=== PATIENT | female | born 1955 | race Caucasian/White ===

== ENCOUNTER → 2016-08-17 | Outpatient (CLI) | payer MEDICARE, MEDICAID ==
[~2016-08-17] MED LIST: AC325T PO; ACEB200C PO; ALBU17AE23 IH; ALBU8.5H2 IH; AMIT25TA9 PO; ANTIBIOTIC; ATOR10TA66 PO; BENZ100C18 PO; CARB1TAB5 PO; CEFD300C3 PO; CEFP500T4 PO; CLON0.5T2 PO; CLON0.5T3 PO; CLON1TAB3 PO; CLOP75TA28 PO; COLE625T9 PO; CPR500T PO; EPIN0.1D10 INJ; EPIN0.3P3 IJ; FLT4413 IH; FLUT50DI IH; FLUT50DI2 INH; HORMONE; HYDR50CA PO; IPRA3AMP19 IH; ISOS30TA4 PO; ISOS30TA7 PO; IV ANTIBIOTIC; LORA-405 PO; MECL-106 PO; METH4TAB PO; METO50TA7 PO; MNTL10T PO; MOME13HF2 IH; MONT10TA24 PO; NITR-65 PO; NITR1PAT27 TD; NTR.4SL SL; ONDA4TAB8 SL; POTA10CA16 PO; POTA10TA36 PO; PRD10T PO; PRD20T; PRD20T PO; PRD50T PO; PRED10TA22 PO; PREMARIN; PREMARIN PO; RABE20TA PO; RABE20TA27 PO; RT-ALBUINH IH; SCOP1PAT TD; SUCR1ORA5 PO; THEO200T20 PO; THEO400T PO; THP200TCR PO; TOPI25TA10 PO
--- NOTE | 2016-08-17 16:33 | Diagnostic Imaging Report ---
PROCEDURE: US thyroid. TECHNIQUE: Multiple real-time grayscale images were obtained of the thyroid in various projections. INDICATION: Multinodular goiter. FINDINGS: Right lobe of the thyroid measures 4.9 x 1.3 x 1.1 cm. Left lobe measures 4.2 x 1.3 x 1.1 cm. There is a 9 mm nodule in the inferior pole of the right lobe of the thyroid. This is hypoechoic with some internal calcification. There is a 16 x 6 x 13 mm nodule in the isthmus, eccentric to the right, that has mixed echogenicity with some macrocalcification present also. The left lobe of the thyroid contains two nodules, inferiorly, measuring 7 and 5 mm in diameter. One is isoechoic and another hypoechoic. IMPRESSION: There are four thyroid nodules present in the thyroid. These are unchanged from the comparison exam dated 04/17/2016 and have benign features consistent with multinodular goiter. Dictated by: Dictated on workstation # [id number]
== END ==
LOC: RAD 14:47
PROVIDERS: ATTEND Otolaryngology Otolaryngology/Facial Plastic Surgery
DX: E04.2 Nontoxic multinodular goiter (principal)
CPT/HCPCS: 76536

== ENCOUNTER → 2016-09-12 | Outpatient (CLI) | payer MEDICARE, MEDICAID ==
[~2016-09-12] VITALS: Ht 162.6 cm; Wt 58.1 kg
[~2016-09-12] MED LIST changes: +CATHETER FLUSH 10 ML SYR IV PRN; +REGADENOSON 0.4 MG/5 ML SYR (LEXISCAN) IV ONE
[2016-09-12 09:34] VITALS: BP 136/80
[2016-09-12 09:35] VITALS: BP 150/76
[2016-09-12 09:36] VITALS: BP 139/80
[2016-09-12 09:38] VITALS: BP 137/79
--- NOTE | 2016-09-13 07:32 | STRESS TEST ---
PROCEDURE PHYSICIAN: KELL SILVA DATE OF PROCEDURE: 09/13/2015 LEXISCAN MYOVIEW STRESS TEST REPORT. REFERRING PHYSICIAN: Dr. Harinder Hernandez BASELINE HEART RATE: 64 BASELINE BLOOD PRESSURE: 136/80. BASELINE EKG: Sinus rhythm with no ischemic changes. SUMMARY: The patient was injected with 10.7 mCi of technetium 99 Myoview and the resting images were obtained. Then the patient received 0.4 mg of Lexiscan followed by 30 mCi of technetium 99 Myoview. Throughout the test, there were no EKG changes. The resting and stress images were reviewed and compared in the short axis, horizontal long axis, and vertical long axis views. Review of the images showed good radiotracer uptake with no ischemia or infarction on SPECT images. SSS is 0. TID value 0.86. On the gated images, the left ventricle appeared to be normal size with normal contractility. Calculated ejection fraction 79%. CONCLUSION: 1. The patient tolerated Lexiscan well. 2. No ischemia or infarction on SPECT images. 3. Normal left ventricular size with normal contractility. Calculated ejection fraction 79%. Job ID: [id number] Dictated Date: 09/12/2016 17:51:15 [employer]anner Date: 09/13/2016 07:28:48 / [email or web address]
== END ==
LOC: CARD 08:05
PROVIDERS: ATTEND Internal Medicine Cardiovascular Disease
DX: R07.89 Other chest pain (principal); I65.23 Occlusion and stenosis of bilateral carotid arteries; R06.02 Shortness of breath; R00.2 Palpitations
CPT/HCPCS: 78452; 93017

== ENCOUNTER 2017-12-28 23:30 | Inpatient (IN) | payer MEDICARE, MEDICAID ==
[~2017-12-28] VITALS: Ht 162.6 cm; Wt 56.7 kg
[~2017-12-28 23:30] MED LIST changes: -CATHETER FLUSH 10 ML SYR IV PRN; -REGADENOSON 0.4 MG/5 ML SYR (LEXISCAN) IV ONE; -SCOP1PAT TD; +SCOP1PAT11 TD
[2017-12-28] MEDS ORDERED: NS IV 1000 ML 1,000 ML IV SCH (23:36)
--- OUTSIDE RECORDS SUMMARY | 2017-12-28 23:40 | XMS REPORT | Clinical Summary ---
Author Author Admin, QIE Organization [facility] [place] Address Unknown Phone Unavailable Allergies, Adverse Reactions, Alerts Allergy Name Reaction Description Start Date Severity Status Provider VANCOMYCIN Critical Active Harinder Hernandez DO LEVAQUIN stomach upset, diarrhea, and itching Critical Active Harinder Hernandez DO AITHROMYCIN itch Moderate Active Harinder Hernandez DO NEOSPORIN Critical Active Harinder Hernandez DO TRAMADOL HCL Critical Active Harinder Hernandez DO REQUIP Critical Active Harinder Hernandez DO PENICILLIN V POTASSIUM Critical Active Harinder Hernandez DO MORPHINE Critical Active Harinder Hernandez DO LATEX Critical Active Harinder Hernandez DO IBUPROFEN Critical Active Harinder Hernandez DO HYDROCODONE-ACETAMINOPHEN Critical Active Harinder Hernandez DO [facility] CORTISONE LONG-LASTING Critical Active Harinder Hernandez DO AVELOX Critical Active Harinder Hernandez DO DOXYCYCLINE Critical Active Harinder Hernandez DO CODEINE Critical Active Harinder Hernandez DO BENADRYL Critical Active Harnider Hernandez DO BACLOFEN Critical Active Harinder Hernandez DO ASA Critical Active Harinder Hernandez DO PHENERGAN Critical Active Harinder Hernandez DO VALIUM Critical Active Harinder Hernandez DO DEMEROL Critical Active Harinder Hernandez DO SULFA Critical Active Harinder Hernandez DO PCN Critical Active Harinder Hernandez DO LYRICA Critical Active Harinder Hernandez DO Conditions or Problems Problem Name Problem Code Onset Date Status Entry Date Provider Comment Standard Description Annotate Asthma 493.90 Active Harinder Hernandez DO Asthma, unspecified C O P D 496 Active Harinder Hernandez DO Chronic airway obstruction, not elsewhere classified Myocardial Infarction: 410.90 Active Harinder Hernandez DO Acute myocardial infarction, unspecified site, episode of care unspecified (History of) Myalgia 729.1 Active Harinder Hernandez DO Myalgia and myositis, unspecified Restless leg syndrome 333.94 Active Harinder Hernandez DO Restless legs syndrome (RLS) Breast mass, right 611.72 Resolved Harinder Hernandez DO Lump or mass in breast Health maintenance exam V70.0 Active Harinder Hernandez DO Routine general medical examination at a health care facility Encounter for fitting and adjustment of vascular catheter V58.81 Resolved Harinder Hernandez DO Encounter for fitting and adjustment of vascular catheter Back pain, lumbar 724.2 Resolved Harinder Hernandez DO Lumbago Insomnia 780.52 Resolved Harinder Hernandez DO Insomnia , unspecified Raynaud's syndrome 443.0 Active Harinder Hernandez DO Raynaud's syndrome Sacroiliitis, right 720.2 Resolved Harinder Hernandez DO Sacroiliitis, not elsewhere classified Preventive health care V70.0 Active Harinder Hernandez DO Routine general medical examination at a health care facility Sacroiliitis, left 720.2 Active Harinder Hernandez DO Sacroiliitis, not elsewhere classified Actinic keratosis 702.0 Active Harinder Hernandez DO Actinic keratosis COPD, acute exacerbation 491.21 Active Harinder Hernandez DO Obstructive chronic bronchitis with (acute) exacerbation Biceps tendinitis, left 726.12 Resolved Harinder Hernandez DO Bicipital tenosynovitis Nausea and vomiting 787.01 Resolved Jae Morgan MD Nausea with vomiting Diarrhea 787.91 Resolved Jae Morgan MD Diarrhea Benign positional vertigo 386.11 Resolved Harinder Hernandez DO Benign paroxysmal positional vertigo Colon cancer screening V76.51 Resolved Harinder Hernandez DO Screening for malignant neoplasms of colon Screening for malignant neoplasm, colon V76.51 Resolved Harinder Hernandez DO Screening for malignant neoplasms of colon Pneumonia 486 Resolved Harinder Hernandez DO Pneumonia , organism unspecified Bacteremia 790.7 Resolved Harinder W David DO Unspecified bacteremia Clostridium difficile colitis 008.45 Resolved Harinder Cr David DO Intestinal infection due to clostridium difficile Abdominal pain, right lower quadrant 789.03 Resolved Harinder Cr David DO Abdominal pain, right lower quadrant Needs vaccination for influenza V04.81 Resolved Harinder Cr David DO Need for prophylactic vaccination and inoculation against influenza Need for prophylactic vaccination against streptococcus pneumoniae ( Pneumococcus) V03.82 Resolved Harinder W David DO Need for prophylactic vaccination against Streptococcus pneumoniae [pneumococcus ] Greater trochanteric bursitis, left 726.5 Resolved Harinder Hernandez DO Enthesopathy of hip region Dysphagia 787.20 Active Harinder Hernandez DO Dysphagia , unspecified Hx of ischemic cerebrovascular accident with residual deficit 438.9 Active Harinder Hernandez DO Unspecified late effects of cerebrovascular disease Venous insufficiency 459.81 Active Nettie King MAHENDRA Venous (peripheral) insufficiency, unspecified Greater trochanteric bursitis, left 726.5 Active Harinder Hernandez DO Enthesopathy of hip region Diarrhea, acute 787.91 Active Harinder Cr David DO Diarrhea URI 465.9 Active Harinder Cr David DO Acute upper respiratory infections of unspecified site Weakness, muscle 728.87 Active Harinder Cr David DO Muscle weakness (generalized) CVA with right hemiparesis 438.20 Active Harinder Cr David DO 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 Diarrhea, chronic 787.91 Active Harinder Hernandez DO Diarrhea Reflux, esophageal 530.81 Active Harinder Cr David DO Esophageal reflux Hypokalemia 276.8 Active Harinder Hernandez DO Hypopotassemia Hip pain, left 719.45 Active Harinder Hernandez DO Pain in joint involving pelvic region and thigh Raynaud's syndrome 443.0 Active Harinder Hernandez DO Raynaud's syndrome Edema leg 782.3 Active Harinder Hernandez DO Edema Tendonitis 726.90 Active Harinder Hernandez DO Enthesopathy of unspecified site Anxiety depression 300.4 Active Harinder Hernandez DO Dysthymic disorder Abdominal pain 789.00 Active Harinder Hernandez DO Abdominal pain, unspecified site Right leg pain 729.5 Active Harinder Hernandez DO Pain in limb Breast mass, right ICD-611.72 Inactive Harinder Hernandez DO Encounter for fitting and adjustment of vascular catheter ICD-V58.81 Inactive Harinder Hernandez DO Back pain, lumbar ICD-724.2 Inactive Harinder Hernandez DO Insomnia ICD-780.52 Inactive Harinder Hernandez DO Sacroiliitis, right ICD-720.2 Inactive Harinder Hernandez DO Biceps tendinitis, left ICD-726.12 Inactive Harinder Hernandez DO Nausea and vomiting ICD-787.01 Inactive Jae Morgan MD Diarrhea ICD-787.91 Inactive Jae Morgan MD Benign positional vertigo ICD-386.11 Inactive Harinder Hernandez Colon cancer screening ICD-V76.51 Inactive Harinder Hernandez Screening for malignant neoplasm, colon ICD-V76.51 Inactive Harinder Hernandez DO Pneumonia ICD-486 Inactive Harinder Hernandez DO Bacteremia ICD-790.7 Inactive Harinder Hernandez DO 10/02 Clostridium difficile colitis ICD-008.45 Inactive Harinder Hernandez DO Abdominal pain, right lower quadrant ICD-789.03 Inactive Harinder Hernandez DO Needs vaccination for influenza ICD-V04.81 Inactive Harinder Hernandez DO Need for prophylactic vaccination against streptococcus pneumoniae ( Pneumococcus) ICD-V03.82 Inactive Harinder Hernandez DO Greater trochanteric bursitis, left ICD-726.5 Inactive Harinder Hernandez DO Medication List Medication Instructions Start Date Stop Date Generic Name NDC Status Provider Patient Instruction SPIRONOLACTONE 25 MG TAB 1 tablet by mouth daily SPIRONOLACTONE [id number] Prince Pimentel Active POTASSIUM CHLORIDE CR 10 MEQ CPCR 1 capsule BID POTASSIUM CHLORIDE 39427931312 Prince Mccain Active FLUOXETINE HCL 10 MG ORAL CAPS 1 po qd for depression/anxiety FLUOXETINE HCL 41529321543 Active Harinder Hernandez DO Active VOLTAREN 1 % GEL apply q 6-8 hour to left arm as needed for pain DICLOFENAC SODIUM 08584293086 Prince Hernandez DO Active LASIX 20 MG TAB 1 tablet by mouth every morning FUROSEMIDE 34984577222 Prince Mccain Active POTASSIUM CHLORIDE 20 MEQ ORAL PACK 1 tab po BID POTASSIUM CHLORIDE 44584129282 Prince Mccain Active ALBUTEROL SULFATE 0.083 % NEBU SOLN 1 vial neb q 4hrs for severe asthma. imperative to have this agent ALBUTEROL SULFATE 44151267192 Prince Pimentel Active NIFEDIAC CC 30 MG [id number] 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 NIFEDIPINE 11467130607 Active Harinder Hernandez DO Active AMLODIPINE BESYLATE 5 MG TABS 1 tablet by mouth daily AMLODIPINE BESYLATE 20812871724 No Longer Active Harinder Hernandez DO Active TOPAMAX 25 MG ORAL TABS 1 tab po BID TOPIRAMATE 27792634559 Active Kortney Mccain Active FLUTICASONE PROPIONATE 50 MCG/ACT SUSP 2 sprays per nostril daily PRN Allergies FLUTICASONE PROPIONATE 45612215979 Active Kortney Mccain Active NIFEDIPINE ER 30 MG ORAL [id number] 1 daily NIFEDIPINE 74809654943 No Longer Active Harinder Hernandez DO Active FLOVENT HFA 110 MCG/ACT AERO 2 puffs inhaled b.i.d. FLUTICASONE PROPIONATE HFA 66865348779 Active Harinder Hernandez DO Active EPIPEN 2-BRUNA 0.3 MG/0.3ML INJ SOAJ 1 INJ NEEDED EPINEPHRINE 84358360089 Active Harinder Hernandez DO Active PREDNISONE 20 MG TAB 1 tab twice daily for 3 day, then one daily for three days PREDNISONE 64784491300 No Longer Active Harinder Hernandez DO Active PREDNISONE 20 MG TAB 1 tablet twice daily for 2 days, then 1 tablet once daily for 2 days PREDNISONE 16511837766 No Longer Active Harinder Hernandez DO Active ASMANEX 120 METERED DOSES 220 MCG/INH INH AEPB 2 puffs orally twice daily MOMETASONE FUROATE 26689289366 Active Jeri Sosa LPN Active TOPIRAMATE 25 MG TABS 1 tab po BID TOPIRAMATE 97542094170 No Longer Active Nettie Newberry APRN Active AMLODIPINE BESYLATE 5 MG ORAL TABS Take 1 tab po daily AMLODIPINE BESYLATE 83453686047 No Longer Active Nettie Newberry APRN Active MECLIZINE HCL 25 MG TAB 1 tablet three times daily for 3 days, then 1/2 tab three times daily for 3 days. MECLIZINE HCL 96330229040 No Longer Active Nettie Newberry APRN Active AMITRIPTYLINE HCL 25 MG ORAL TABS 1 q hs prn AMITRIPTYLINE HCL 11771169866 No Longer Active Nettie Newberry APRN Active DILAUDID 2 MG ORAL TABS Take 1/2 tab po every 4 hours as needed for pain 2014 HYDROMORPHONE HCL 30690273188 No Longer Active Nettie Newberry APRN Active CLOPIDOGREL BISULFATE 75 MG ORAL TABS 1 tab by mouth once daily CLOPIDOGREL BISULFATE 31769944792 Active Harinder Hernandez DO Active ATORVASTATIN CALCIUM 10 MG ORAL TABS 1 at bedtime ATORVASTATIN CALCIUM 24357208920 Active Tawnya Pardo MA Active LOVASTATIN 40 MG ORAL TABS Take 1 tab po every hs LOVASTATIN 28911921383 No Longer Active Harinder Hernandez DO Active PREDNISONE 20 MG TAB 2 tabs daily for 4 days, 1 tab daily for 4 days, 1/2 tab daily for 4 days PREDNISONE 63020644954 No Longer Active Harinder Hernandez DO Active LEVAQUIN 500 MG ORAL TABS Take 1 tab po daily x 8 days LEVOFLOXACIN 84360530709 No Longer Active Harinder Hernandez DO Active VENTOLIN HFA 108 (90 BASE) MCG/ACT AERS 2 -4 puffs four times a day PRN 2013 ALBUTEROL SULFATE 40222457634 No Longer Active Jeri Sosa LPN Active ACEBUTOLOL HCL 200 MG CAPS 1 cap in the morning and 2 caps in the evening ACEBUTOLOL HCL 10951655540 No Longer Active Harinder Hernandez DO Active CEFDINIR 300 MG ORAL CAPS take 1 cap po bid x 10 days CEFDINIR 55917043073 No Longer Active Harinder Hernandez DO Active LOVASTATIN 40 MG TABS 1 pill by mouth nightly for cholesterol LOVASTATIN 66699037165 No Longer Active Nettie Newberry APRN Active NITROSTAT 0.4 MG SUBL 1 tab under tongueas needed for chest pain ( may take 3 total, 5 min apart, then call 911) NITROGLYCERIN 58279427680 No Longer Active Nettie Newberry MAHENDRA Active POTASSIUM CHLORIDE CR 10 MEQ CPCR 1 capsule by mouth daily 02/14 POTASSIUM CHLORIDE 09838604578 No Longer Active Nettie Newberry MAHENDRA Active TESSALON PERLES 100 MG CAP 1 to 2 tablets by mouth 3 times daily as needed for cough BENZONATATE 53760836119 No Longer Active Nettie Newberry MAHENDRA Active THEOPHYLLINE ER 200 MG ORAL [id number] Take 1 tab every 12 hours THEOPHYLLINE 22870749074 Active Kortney Mccain Active PREDNISONE 20 MG TAB 2 po qd x 5 days PREDNISONE 82606355470 No Longer Active Jae Morgan MD Active AZITHROMYCIN 250 MG TABS 2 po qd x 1 day, then 1 po qd x 4 days AZITHROMYCIN 20863092634 No Longer Active Jae Morgan MD Active PREDNISONE 20 MG TAB 1 tab twice daily for 3 day, then one daily for three days PREDNISONE 64311006783 No Longer Active Jae Morgan MD Active SINGULAIR 10 MG TABS 1 pill by mouth every evening for breathing. MONTELUKAST SODIUM 66778100482 Active Tawnya Pardo MA Active TYLENOL 325 MG TAB 3 by mouth q4h as needed ACETAMINOPHEN 88671485923 Active Harinder Hernandez DO Active POTASSIUM CHLORIDE ER 10 MEQ CR-TABS take 1 tab po daily POTASSIUM CHLORIDE 14862270757 No Longer Active Harindre Hernanedz DO Active PREDNISONE 20 MG TAB 1 TID x 2 days, then 1 BID x 3 days, then 1 Daily x 3 days, then stop PREDNISONE 76830734111 No Longer Active John Montemayor APRN Active LEVAQUIN 500 MG TAB 1 tablet by mouth daily LEVOFLOXACIN 80625338883 No Longer Active Jillina Frazell [employer] Active NEURONTIN 300 MG CAP 1 cap by mouth three times daily for restless leg 06/22 GABAPENTIN 02126590509 No Longer Active Harinder Hernandez DO Active BENZONATATE 100 MG CAPS 1 cap po TID PRN BENZONATATE 20253636343 No Longer Active Harinder Hernandez DO Active MONTELUKAST SODIUM 10 MG TABS 1 tab po in the evening MONTELUKAST SODIUM 53484685388 No Longer Active Harinder Hernandez DO Active MUPIROCIN 2 % OINT apply to affected area BID x 14 days MUPIROCIN 55165049978 No Longer Active Harinder Hernandez DO Active TYLENOL EXTRA STRENGTH 500 MG TABS as needed ACETAMINOPHEN 46262323837 No Longer Active Harinder Hernandez DO Active PREDNISONE 10 MG TABS 1 tab po daily PREDNISONE 41524446203 No Longer Active Harinder Hernandez DO Active PREDNISONE 20 MG TAB 2 tabs daily for 4 days, 1 tab daily for 4 days, 1/2 tab daily for 4 days PREDNISONE 38484171400 No Longer Active Harinder Hernandez DO Active AZITHROMYCIN 250 MG TABS 2 po qd x 1 day, then 1 po qd x 4 days AZITHROMYCIN 86062520729 No Longer Active Harinder Hernandez DO Active PREDNISONE 20 MG TAB 3 tabs today, then 1 tab twice daily for 3 day, then one daily for three days PREDNISONE 72630551190 No Longer Active Harinder Hernandez DO Active NIFEDIAC CC 30 MG [id number] 1 tablet daily for raynaud's syndrome NIFEDIPINE 84916296591 No Longer Active Tawnya Pardo MA Active AMBIEN 10 MG TAB 1/2 tab by mouth at bedtime as needed for sleep ZOLPIDEM TARTRATE 79524686721 Active Ciera Pimentel Active CLONAZEPAM 1 MG TABS 1 tablet at bedtime for insomnia and restless legs 09/14 CLONAZEPAM 73761680701 Active Harinder Hernandez DO Active CLONAZEPAM 0.5 MG TABS 1 tab po daily CLONAZEPAM 14572250532 No Longer Active Harinder Hernandez DO Active PREDNISONE 10 MG TAB 1 tablet daily for COPD PREDNISONE 14062615383 Active Ciera Pimentel Active PROAIR HFA 108 (90 BASE) MCG/ACT AERS 2 puffs four times a day as needed 2012 ALBUTEROL SULFATE 52507663378 Active Harinder Hernandez DO Active FLOVENT HFA 110 MCG/ACT AERO 2 puffs inhaled b.i.d. FLUTICASONE PROPIONATE HFA 83496387542 Active Kortneyalice Mccain Active ACIPHEX 20 MG TBEC 1 tab po daily RABEPRAZOLE SODIUM 03901003723 Active Kaylah Newberry Active CLONAZEPAM 0.5 MG TABS 1 tab po daily CLONAZEPAM 0.5 MG TABS 669572 CLONAZEPAM Inactive PREDNISONE 20 MG TAB 3 tabs today, then 1 tab twice daily for 3 day, then one daily for three days PREDNISONE 20 MG TAB 862514 PREDNISONE Inactive PREDNISONE 20 MG TAB 2 tabs daily for 4 days, 1 tab daily for 4 days, 1/2 tab daily for 4 days PREDNISONE 20 MG TAB 979441 PREDNISONE Inactive PREDNISONE 10 MG TABS 1 tab po daily PREDNISONE 10 MG TABS 927575 PREDNISONE Inactive TYLENOL EXTRA STRENGTH 500 MG TABS as needed TYLENOL EXTRA STRENGTH 500 MG TABS 533237 ACETAMINOPHEN Inactive MUPIROCIN 2 % OINT apply to affected area BID x 14 days MUPIROCIN 2 % OINT 642227 MUPIROCIN Inactive MONTELUKAST SODIUM 10 MG TABS 1 tab po in the evening MONTELUKAST SODIUM 10 MG TABS 20010818 MONTELUKAST SODIUM Inactive BENZONATATE 100 MG CAPS 1 cap po TID PRN BENZONATATE 100 MG CAPS 126180 BENZONATATE Inactive NEURONTIN 300 MG CAP 1 cap by mouth three times daily for restless leg 06/22 NEURONTIN 300 MG CAP 988127 GABAPENTIN Inactive LEVAQUIN 500 MG TAB 1 tablet by mouth daily LEVAQUIN 500 MG TAB 770648 LEVOFLOXACIN Inactive PREDNISONE 20 MG TAB 1 TID x 2 days, then 1 BID x 3 days, then 1 Daily x 3 days, then stop PREDNISONE 20 MG TAB 084940 PREDNISONE Inactive POTASSIUM CHLORIDE ER 10 MEQ CR-TABS take 1 tab po daily POTASSIUM CHLORIDE ER 10 MEQ CR-TABS POTASSIUM CHLORIDE Inactive PREDNISONE 20 MG TAB 1 tab twice daily for 3 day, then one daily for three days PREDNISONE 20 MG TAB 428185 PREDNISONE Inactive TESSALON PERLES 100 MG CAP 1 to 2 tablets by mouth 3 times daily as needed for cough TESSALON PERLES 100 MG CAP 644034 BENZONATATE Inactive POTASSIUM CHLORIDE CR 10 MEQ CPCR 1 capsule by mouth daily 02/14 POTASSIUM CHLORIDE CR 10 MEQ CPCR POTASSIUM CHLORIDE Inactive NITROSTAT 0.4 MG SUBL 1 tab under tongueas needed for chest pain ( may take 3 total, 5 min apart, then call 911) NITROSTAT 0.4 MG SUBL 688082 NITROGLYCERIN Inactive LOVASTATIN 40 MG TABS 1 pill by mouth nightly for cholesterol LOVASTATIN 40 MG TABS 730906 LOVASTATIN Inactive CEFDINIR 300 MG ORAL CAPS take 1 cap po bid x 10 days CEFDINIR 300 MG ORAL CAPS 832261 CEFDINIR Inactive ACEBUTOLOL HCL 200 MG CAPS 1 cap in the morning and 2 caps in the evening ACEBUTOLOL HCL 200 MG CAPS 431077 ACEBUTOLOL HCL Inactive VENTOLIN HFA 108 (90 BASE) MCG/ACT AERS 2 -4 puffs four times a day PRN 2013 VENTOLIN HFA 108 (90 BASE) MCG/ACT AERS ALBUTEROL SULFATE Inactive LEVAQUIN 500 MG ORAL TABS Take 1 tab po daily x 8 days LEVAQUIN 500 MG ORAL TABS 19980216 LEVOFLOXACIN Inactive PREDNISONE 20 MG TAB 2 tabs daily for 4 days, 1 tab daily for 4 days, 1/2 tab daily for 4 days PREDNISONE 20 MG TAB 953386 PREDNISONE Inactive LOVASTATIN 40 MG ORAL TABS Take 1 tab po every hs LOVASTATIN 40 MG ORAL TABS 320715 LOVASTATIN Inactive DILAUDID 2 MG ORAL TABS Take 1/2 tab po every 4 hours as needed for pain 2014 DILAUDID 2 MG ORAL TABS 922760 HYDROMORPHONE HCL Inactive AMITRIPTYLINE HCL 25 MG ORAL TABS 1 q hs prn AMITRIPTYLINE HCL 25 MG ORAL TABS 522517 AMITRIPTYLINE HCL Inactive MECLIZINE HCL 25 MG TAB 1 tablet three times daily for 3 days, then 1/2 tab three times daily for 3 days. MECLIZINE HCL 25 MG TAB 836699 MECLIZINE HCL Inactive AMLODIPINE BESYLATE 5 MG ORAL TABS Take 1 tab po daily AMLODIPINE BESYLATE 5 MG ORAL TABS 973786 AMLODIPINE BESYLATE Inactive TOPIRAMATE 25 MG TABS 1 tab po BID TOPIRAMATE 25 MG TABS 700414 TOPIRAMATE Inactive PREDNISONE 20 MG TAB 1 tablet twice daily for 2 days, then 1 tablet once daily for 2 days PREDNISONE 20 MG TAB 899233 PREDNISONE Inactive PREDNISONE 20 MG TAB 1 tab twice daily for 3 day, then one daily for three days PREDNISONE 20 MG TAB 930402 PREDNISONE Inactive NIFEDIPINE ER 30 MG ORAL [id number] 1 daily NIFEDIPINE ER 30 MG ORAL [id number] NIFEDIPINE Inactive AMLODIPINE BESYLATE 5 MG TABS 1 tablet by mouth daily AMLODIPINE BESYLATE 5 MG TABS 426037 AMLODIPINE BESYLATE Inactive AZITHROMYCIN 250 MG TABS 2 po qd x 1 day, then 1 po qd x 4 days AZITHROMYCIN 250 MG TABS 3104460 AZITHROMYCIN Inactive AZITHROMYCIN 250 MG TABS 2 po qd x 1 day, then 1 po qd x 4 days AZITHROMYCIN 250 MG TABS 6505706 AZITHROMYCIN Inactive PREDNISONE 20 MG TAB 2 po qd x 5 days PREDNISONE 20 MG TAB 483713 PREDNISONE Inactive Vital Signs Date Name Value Unit Range Description blood pressure, diastolic 69 mm[Hg] BP adan blood pressure, systolic 117 mm[Hg] BP sys height E&M 64 [in_us] Bdy height pulse rate E&M 73 /min Heart rate temperature E&M 97.9 [degF] Body temperature weight E&M 129 [lb_av] Weight Measured blood pressure, diastolic 67 mm[Hg] BP adan blood pressure, systolic 115 mm[Hg] BP sys height E&M 64 [in_us] Bdy height pulse rate E&M 59 /min Heart rate temperature E&M 96.1 [degF] Body temperature weight E&M 133 [lb_av] Weight Measured blood pressure, diastolic 66 mm[Hg] BP adan blood pressure, systolic 108 mm[Hg] BP sys height E&M 64 [in_us] Bdy height pulse rate E&M 83 /min Heart rate temperature E&M 97.9 [degF] Body temperature weight E&M 136 [lb_av] Weight Measured blood pressure, diastolic 67 mm[Hg] BP adan blood pressure, systolic 110 mm[Hg] BP sys height E&M 64 [in_us] Bdy height pulse rate E&M 72 /min Heart rate temperature E&M 97.4 [degF] Body temperature weight E&M 138 [lb_av] Weight Measured blood pressure, diastolic 71 mm[Hg] BP adan blood pressure, systolic 116 mm[Hg] BP sys height E&M 64 [in_us] Bdy height pulse rate E&M 78 /min Heart rate temperature E&M 97.6 [degF] Body temperature weight E&M 137 [lb_av] Weight Measured blood pressure, diastolic 61 mm[Hg] BP adan blood pressure, systolic 96 mm[Hg] BP sys pulse rate E&M 69 /min Heart rate temperature E&M 97.9 [degF] Body temperature weight E&M 124 [lb_av] Weight Measured blood pressure, diastolic 63 mm[Hg] BP adan blood pressure, systolic 115 mm[Hg] BP sys pulse rate E&M 89 /min Heart rate temperature E&M 96.1 [degF] Body temperature weight E&M 125.5 [lb_av] Weight Measured blood pressure, diastolic 69 mm[Hg] BP adan blood pressure, systolic 135 mm[Hg] BP sys pulse rate E&M 70 /min Heart rate temperature E&M 96.8 [degF] Body temperature weight E&M 129 [lb_av] Weight Measured blood pressure, diastolic 70 mm[Hg] BP adan blood pressure, systolic 113 mm[Hg] BP sys pulse rate E&M 74 /min Heart rate temperature E&M 97.1 [degF] Body temperature weight E&M 131 [lb_av] Weight Measured Diagnostic Results Date Name Value Unit Range Description Lab Report: Basic Metabolic Panel - Chemistry sodium, serum 137 mmol/L 253-573 8857/01/03 potassium, serum 3.4 mmol/L 3.5-5.2 chloride, serum 102 mmol/L 98-107 carbon dioxide, venous blood 29.2 mmol/L 21.0-32.0 blood glucose 87 mg/dL 65-110 calcium, serum 8.5 mg/dL 8.5-10.1 urea nitrogen, blood 8 mg/dL 7-18 creatinine, serum 0.82 mg/dL 0.55-1.30 sodium, serum 140 mmol/L 548-167 6500/07/13 potassium, serum 3.2 mmol/L 3.5-5.2 chloride, serum 103 mmol/L 98-107 carbon dioxide, venous blood 26.9 mmol/L 21.0-32.0 blood glucose 93 mg/dL 65-110 calcium, serum 9.2 mg/dL 8.5-10.1 urea nitrogen, blood 13 mg/dL 7-18 creatinine, serum 0.84 mg/dL 0.60-1.30 Lab Report: CBC - Hematology leukocyte count, blood 5.6 10^3/MM^3 10*3/mm3 4.6-10.2 erythrocyte (RBC) count 4.09 10^6/MM^3 10*6/mm3 4.04-5.48 hemoglobin, blood 13.4 g/dL 12.0-16.0 hematocrit, blood 39.2 % 36.0-46.0 mean corpuscular volume, RBC 96 fL 80-97 mean corpuscular hemoglobin, RBC 32.8 pg 27.0-31.2 mean corpuscular hemoglobin concentration, RBC 34.3 G/DL % 31.8- 35.4 red blood cell distribution width 13.9 % 11.6-14.8 platelet count 182 10^3/MM^3 10*3/mm3 142-424 Lab Report: CBC, UADIP W/MICRO, AUTO - Chemistry protein, total urine random Negative mg/dL Negative RBC, urine, dipstick 2+ Negative Lab Report: CBC, UADIP W/MICRO, AUTO - Hematology leukocyte count, blood 6.2 10^3/MM^3 10*3/mm3 4.6-10.2 erythrocyte (RBC) count 4.04 10^6/MM^3 10*6/mm3 3.80-5.80 hemoglobin, blood 12.9 g/dL 12.0-16.0 hematocrit, blood 38.6 % 37.0-47.0 mean corpuscular volume, RBC 96 fL 80-97 mean corpuscular hemoglobin, RBC 32.0 pg 27.0-31.2 mean corpuscular hemoglobin concentration, RBC 33.5 G/DL % 31.8- 35.4 red blood cell distribution width 12.7 % 11.6-14.8 platelet count 204 10^3/MM^3 10*3/mm3 142-424 Lab Report: CBC, UADIP W/MICRO, AUTO - Urinalysis urine color Yellow Colorless;Lightyellow;Straw;Yellow appearance, urine Clear Clear specific gravity, urine 1.020 1.000-1.030 pH, urine, semiquantitative 5.5 5.0-8.5 urobilinogen, urine, semiquantitative (dipstick) 0.2 E.U./dL Normal leukocyte esterase, urine, by dipstick Negative Negative nitrite, urine, semiquantitative Negative Negative glucose, urine, semiquantitative Negative Negative ketones, urine, by test strip Negative Negative bilirubin, urine Negative Negative Lab Report: Comp. Metabolic Panel, Thyroid Stimulating Hormone (L), Magn ... - Chemistry sodium, serum 141 mmol/L 824-525 6926/08/07 carbon dioxide, venous blood 34.0 mmol/L 21.0-32.0 potassium, serum 2.7 mmol/L 3.5-5.2 chloride, serum 99 mmol/L 98-107 blood glucose 88 mg/dL 65-110 urea nitrogen, blood 11 mg/dL 7-18 creatinine, serum 0.97 mg/dL 0.60-1.30 alanine aminotransferase (SGPT), serum 24 U/L 12-78 aspartate aminotransferase (SGOT), serum 24 U/L 15-37 calcium, serum 9.2 mg/dL 8.5-10.1 bilirubin, serum, total 0.90 mg/dL 0.00-1.00 TSH 0.80 m[iU]/mL 0.36-3.74 Lab Report: Lipid Panel, Comp. Metabolic Panel, Magnesium - Chemistry cholesterol, serum 180 mg/dL [phone]/08/08 triglyceride, serum, fasting 92 mg/dL 30-200 HDL cholesterol, serum 66 mg/dL 32-96 LDL cholesterol, serum 96 mg/dL 0-130 sodium, serum 142 mmol/L [phone]/08/08 carbon dioxide, venous blood 27.4 mmol/L 21.0-32.0 potassium, serum 3.7 mmol/L 3.5-5.2 chloride, serum 105 mmol/L 98-107 blood glucose 89 mg/dL 65-110 urea nitrogen, blood 9 mg/dL 7-18 creatinine, serum 0.91 mg/dL 0.55-1.30 alanine aminotransferase (SGPT), serum 22 U/L 12-78 aspartate aminotransferase (SGOT), serum 21 U/L 15-37 calcium, serum 8.6 mg/dL 8.5-10.1 bilirubin, serum, total 0.40 mg/dL 0.00-1.00 Lab Report: MICROALB/CREAT W/RATIO - Chemistry albumin/creatinine ratio, urine < 30 mg/g mg/g{creat} 0-29 Lab Report: MICROALB/CREAT W/RATIO - Lab microalbumin, urine 10 0-19 Lab Report: THEOPHYLLINE - Toxicology theophylline level, serum <2.5 mg/L ug/mL 10.0-20.0 Encounters Code Encounter Date Provider Facility CPT-41245 Level 4 Est. Patient 14:45:25 CDT Harinder Hernandez [facility] CPT-62256 Level 4 Est. Patient 09:15:13 CDT Harinder Cr [facility] CPT-99582 Level 3 Est. Patient 11:51:58 CDT Harinder Cr [facility] CPT-44979 Level 3 Est. Patient 11:30:05 CDT Harinder Cr [facility] CPT-11057 Level 4 Est. Patient 10:19:23 CDT Harinder Cr [facility] CPT-29524 Level 3 Est. Patient 09:58:58 CDT Harinder Cr [facility] CPT-90841 Level 3 Est. Patient 12:37:21 CDT Harinder Cr [facility] CPT-51992 Level 3 Est. Patient 18:37:17 CDT Harinder Cr [facility] CPT-37129 Level 4 Est. Patient 11:15:54 CDT Nettie Rohith [facility] CPT-49384 Level 3 Est. Patient 16:42:24 CDT Harinder Cr [facility] CPT-43951 Level 3 Est. Patient 15:03:36 CDT Harinder rC [facility] CPT-28538 Level 3 Est. Patient 15:03:20 CDT Harinder Cr [facility] CPT-02841 Level 3 Est. Patient 12:14:34 CDT Harinder Shaye [facility] CPT-89502 Level 3 Est. Patient 13:47:15 CDT Harinder Cr [facility] CPT-13003 Level 3 Est. Patient 14:08:24 CDT Harinder Cr [facility] CPT-28282 Level 3 Est. Patient 10:07:15 CDT Harinder Hernandez [facility] CPT-55753 Level 3 Est. Patient 10:06:59 CDT Harinder Hernandez [facility] CPT-91605 Level 3 Est. Patient 15:53:29 CDT Jae Morgan MD [facility] CPT-31785 Level 3 Est. Patient 17:19:04 CDT Harinder Hernandez [facility] CPT-47392 Level 3 Est. Patient 11:13:01 CDT Harinder Hernandez [facility] CPT-52669 Level 3 Est. Patient 09:03:58 CDT Harinder Hernandez [facility] CPT-76630 Level 3 Est. Patient 14:46:45 [employer]IOR DEVELOPER Harinder Hernandez [facility] CPT-89447 Level 3 Est. Patient 09:35:49 [employer] SENIOR DEVELOPER Harinder Hernandez [facility] CPT-00349 Level 3 Est. Patient 09:29:37 [employer] SENIOR DEVELOPER Harinder Hernandez [facility] CPT-75604 Level 3 Est. Patient 15:51:07 CDT Harinder Hernandez [facility] CPT-42439 Level 3 Est. Patient 18:13:13 CDT Harinder Hernandez [facility] CPT-03841 Level 3 Est. Patient 10:44:19 CDT Harinder Shaye Hernandez [facility] CPT-51703 Level 4 Est. Patient 10:07:19 [employer] SENIOR DEVELOPER Harinder Shaye Hernandez [facility] CPT-03945 Level 3 Est. Patient 15:59:32 [employer] SENIOR DEVELOPER Harinder Cr [facility] Procedures Code Procedure Name Date Entry Date Standard Description CPT-49653 Abd compl w upright - XRAY USE ONLY 14:48:09 CDT 02/18 CPT-34978 Port a cath flush 13:46:05 CDT CPT-60679 Hip, complete, 2-3 views - XRAY USE ONLY 10:28:40 CDT CPT-78450 BMP - LAB USE ONLY 16:45:09 [employer] SENIOR DEVELOPER CPT-83866 Port a cath flush 12:00:13 [employer] SENIOR DEVELOPER CPT-TCMM Transitional Care Mgmt-Moderate 11:20:16 [employer] SENIOR DEVELOPER CPT-35117 First Vx - Ix admin for Medicare patients 17:35:15 CDT CPT-34920 Fluzone Preservative Free Intramuscular Suspension 17:35 :15 CDT CPT-95950 Microalbumin - LAB USE ONLY 11:52:05 CDT CPT-TCMM Transitional Care Mgmt-Moderate 11:33:57 CDT CPT-67865 No Charge Offi Visit 14:11:29 CDT CPT-43772 Magnesium - LAB USE ONLY 10:45:44 CDT CPT-30136 Lipid - LAB USE ONLY 10:45:44 CDT CPT-92488 CBC - LAB USE ONLY 10:45:44 CDT CPT-93818 Venipuncture Draw Fee 10:45:43 CDT CPT-72604 Venipuncture Draw Fee 18:21:27 CDT CPT-JTINJ Asp/Joint Injection 18:38:04 CDT CPT-60639 Immunization Each Additional Inj 17:38:04 CDT CPT-31002 Immunization Single Admin 17:38:04 CDT CPT-69994 Prevnar 13 17:38:04 CDT CPT-21485 Fluzone Quadrivalent preservative free (>=3yrs.) 17:38: 04 CDT CPT-89228 No Charge Offi Visit 11:14:03 CDT CPT-52019 Chest 2V Frontal and Lat 14:00:18 CDT CPT-OV Office Visit 16:10:28 CDT CPT-JTINJ Asp/Joint Injection 09:03:57 CDT CPT-Cryo Cryotherapy 09:35:49 [employer] SENIOR DEVELOPER CPT-JTINJ Asp/Joint Injection 09:34:45 [employer] SENIOR DEVELOPER CPT-J2930 Solu Medrol 125 mg (Methyl Prednisolone Sodium Succinate) 20:37:27 CDT CPT-63840 Abx/Therapy Injection 20:37:27 CDT CPT-11486 Port a cath flush 08:15:51 CDT CPT-07155 Port a cath flush 09:54:16 CDT CPT-70049 Port a cath flush 09:38:02 CDT CPT-76374 Port a cath flush 11:00:27 SAP SENIOR DEVELOPER
--- OUTSIDE RECORDS SUMMARY | 2017-12-28 23:41 | XMS REPORT | Clinical Summary ---
Author Author Admin, QIE Organization [facility] Address Unknown Phone Unavailable Allergies, Adverse Reactions, [...] Active Harinder Hernandez DO AVELOX Critical Active aHrinder Hernandez DO DOXYCYCLINE Critical Active Harinder Hernandez DO CODEINE Critical Active Harinder Hernandez DO BENADRYL Critical Active Harinder Hernandez DO BACLOFEN Critical Active Harinder Hernandez [...] unspecified Restless leg syndrome 333.94 Active Harinder W David DO Restless legs syndrome (RLS) Breast mass, [...] MD Nausea with vomiting Diarrhea 787.91 Resolved aJe Morgan MD Diarrhea Benign positional vertigo 386.11 Resolved Harinder Hernandez DO Benign paroxysmal positional vertigo Colon cancer screening V76.51 Resolved Harinder Hernandez DO Screening for malignant neoplasms of colon Screening for malignant neoplasm, colon V76.51 Resolved Harinder Hernandez DO Screening for malignant neoplasms of colon Pneumonia 486 Resolved Harinder Hernandez DO Pneumonia , organism unspecified Bacteremia 790.7 Resolved Harinder Cr David DO Unspecified bacteremia Clostridium difficile colitis [...] streptococcus pneumoniae ( Pneumococcus) V03.82 Resolved Harinder Cr David DO Need for prophylactic vaccination against [...] hip region Diarrhea, acute 787.91 Active Harinder Hernandez DO Diarrhea URI 465.9 Active Harinder Cr David DO Acute upper respiratory infections of unspecified site Weakness, muscle 728.87 Active Harinder Hernandez DO Muscle weakness (generalized) CVA with right hemiparesis 438.20 Active Harinder Cr David DO 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 Diarrhea, chronic 787.91 Active Harinder Hernandez DO Diarrhea Reflux, esophageal 530.81 Active Harinder Cr David DO Esophageal reflux Hypokalemia 276.8 Active Harinder Cr David DO Hypopotassemia Hip pain, left 719.45 Active Harinder Shaye Hernandez DO Pain in joint involving pelvic region and thigh Raynaud's syndrome 443.0 Active Harinder Shaye Hernandez DO Raynaud's syndrome Edema leg 782.3 Active Harinder Shaye Hernandez DO Edema Tendonitis 726.90 Active Harinder Shaye Hernandez DO Enthesopathy of unspecified site Anxiety depression 300.4 Active Harinder Shaye Hernandez DO Dysthymic disorder Abdominal pain 789.00 Active Harinder Shaye Hernandez DO Abdominal pain, unspecified site Right leg pain 729.5 Active Harinder Shaye Hernandez DO Pain in limb Viral upper respiratory tract infection 465.9 Active Harinder Shaye Hernandez DO Acute upper respiratory infections of unspecified site Breast mass, right ICD-611.72 Inactive Harinder Hernandez Encounter for fitting and adjustment of vascular catheter ICD-V58.81 Inactive Harinder Hernandez Back pain, lumbar ICD-724.2 Inactive Harinder Hernandez DO Insomnia ICD-780.52 Inactive Harinder Hernandez Sacroiliitis, right ICD-720.2 Inactive Harinder Hernandez DO Biceps tendinitis, left ICD-726.12 Inactive Harinder Hernandez DO Nausea and vomiting ICD-787.01 Inactive Jae Morgan MD Diarrhea ICD-787.91 Inactive Jae Morgan MD Benign positional vertigo ICD-386.11 Inactive Harinder Shaye David PINO Colon cancer screening ICD-V76.51 Inactive Harinder Hernandez DO Screening for malignant neoplasm, colon ICD-V76.51 Inactive [...] Generic Name NDC Status Provider Patient Instruction PREDNISONE 20 MG ORAL TABLET 2 tablets by mouth today, then 1 tablet by mouth days 2-3 PREDNISONE 06115444818 Active Meenu Alejo LPN Active NITROSTAT 0.4 MG SUBLINGUAL TABLET SUBLINGUAL 1 tab SL q5min PRN chest pain NITROGLYCERIN 97146754223 Active Meenu Alejo LPN Active THEOPHYLLINE ER 300 MG ORAL TABLET EXTENDED RELEASE 12 HOUR 1 po BID THEOPHYLLINE 85924900342 Active Kortney Mccain Active POTASSIUM CHLORIDE ER 20 MEQ ORAL TABLET EXTENDED RELEASE 1 po q day POTASSIUM CHLORIDE 16418602577 Active Kortney Mccain Active POTASSIUM CHLORIDE 20 MEQ ORAL PACKET 1 tab po q day POTASSIUM CHLORIDE 56694450477 No Longer Active Kortney Mccain Active POTASSIUM CHLORIDE ER 10 MEQ ORAL CAPSULE EXTENDED RELEASE 1 capsule BID 2016 POTASSIUM CHLORIDE 83314553023 No Longer Active Kortney Mccain Active LASIX 20 MG ORAL TABLET 1 tablet by mouth every morning FUROSEMIDE 53578682393 No Longer Active Kortney Mccain Active SPIRONOLACTONE 25 MG ORAL TABLET 1 tablet by mouth daily SPIRONOLACTONE 90772021808 Active Kortney Mccain Active FLUOXETINE HCL 10 MG ORAL CAPSULE 1 po qd for depression/anxiety FLUOXETINE HCL 68009471301 Active Harinder Hernandez DO Active VOLTAREN 1 % TRANSDERMAL GEL apply q 6-8 hour to left arm as needed for pain DICLOFENAC SODIUM 31749101143 Active Kortney Mccain Active ALBUTEROL SULFATE (2.5 MG/3ML) 0.083% INHALATION NEBULIZATION SOLUTION 1 vial neb q 4hrs for severe asthma. imperative to have this agent ALBUTEROL SULFATE 02374909247 Active Ciera Pimentel Active NIFEDIAC CC 30 MG ORAL TABLET EXTENDED RELEASE 24 HOUR 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 NIFEDIPINE 20976132284 Active Kortney Mccain Active AMLODIPINE BESYLATE 5 MG ORAL TABLET 1 tablet by mouth daily 2016 AMLODIPINE BESYLATE 49216530289 No Longer Active Harinder Hernandez DO Active TOPAMAX 25 MG ORAL TABLET 1 tab po BID TOPIRAMATE 20320330763 Active Kortney Mccain Active FLUTICASONE PROPIONATE 50 MCG/ACT NASAL SUSPENSION 2 sprays per nostril daily PRN Allergies FLUTICASONE PROPIONATE 64265700025 Active Meenu Alejo LPN Active NIFEDIPINE ER 30 MG ORAL TABLET EXTENDED RELEASE 24 HOUR 1 daily NIFEDIPINE 84569832676 No Longer Active Harinder Hernandez DO Active FLOVENT HFA 110 MCG/ACT INHALATION AEROSOL 2 puffs inhaled b.i.d. FLUTICASONE PROPIONATE HFA 94614496318 Active Harinder Hernandez DO Active EPIPEN 2-BRUNA 0.3 MG/0.3ML INJECTION SOLUTION AUTO-INJECTOR 1 INJ NEEDED EPINEPHRINE 40396081785 Active Kortney Mccain Active PREDNISONE 20 MG ORAL TABLET 1 tab twice daily for 3 day, then one daily for three days PREDNISONE 54230420368 No Longer Active Harinder Hernandez DO Active PREDNISONE 20 MG ORAL TABLET 1 tablet twice daily for 2 days, then 1 tablet once daily for 2 days PREDNISONE 80819115616 No Longer Active Harinder Hernandez DO Active ASMANEX 120 METERED DOSES 220 MCG/INH INHALATION AEROSOL POWDER BREATH ACTIVATED 2 puffs orally twice daily MOMETASONE FUROATE 30137637622 Active Jeri Sosa LPN Active TOPIRAMATE 25 MG ORAL TABLET 1 tab po BID TOPIRAMATE 11450842721 No Longer Active Nettie Newberry APRN Active AMLODIPINE BESYLATE 5 MG ORAL TABLET Take 1 tab po daily AMLODIPINE BESYLATE 93173989310 No Longer Active Nettie Newberry APRN Active MECLIZINE HCL 25 MG ORAL TABLET 1 tablet three times daily for 3 days, then 1/ 2 tab three times daily for 3 days. MECLIZINE HCL 78158544516 No Longer Active Nettie Newberry APRN Active AMITRIPTYLINE HCL 25 MG ORAL TABLET 1 q hs prn AMITRIPTYLINE HCL 68502263652 No Longer Active Nettie Newberry APRN Active DILAUDID 2 MG ORAL TABLET Take 1/2 tab po every 4 hours as needed for pain HYDROMORPHONE HCL 31244268640 No Longer Active Nettie Newberry APRN Active CLOPIDOGREL BISULFATE 75 MG ORAL TABLET 1 tab by mouth once daily CLOPIDOGREL BISULFATE 76314274452 Active Meenu Alejo LPN Active ATORVASTATIN CALCIUM 10 MG ORAL TABLET 1 at bedtime ATORVASTATIN CALCIUM 80340574523 Active Kortney Mccain Active LOVASTATIN 40 MG ORAL TABLET Take 1 tab po every hs LOVASTATIN 87484266112 No Longer Active Harinder Hernandez DO Active PREDNISONE 20 MG ORAL TABLET 2 tabs daily for 4 days, 1 tab daily for 4 days, 1/2 tab daily for 4 days PREDNISONE 78343627224 No Longer Active Harinder Hernandez DO Active LEVAQUIN 500 MG ORAL TABLET Take 1 tab po daily x 8 days LEVOFLOXACIN 27798794844 No Longer Active Harinder Hernandez DO Active VENTOLIN HFA 108 (90 Base) MCG/ACT INHALATION AEROSOL SOLUTION 2 -4 puffs four times a day PRN ALBUTEROL SULFATE 20866384131 No Longer Active Jeri Sosa LPN Active ACEBUTOLOL HCL 200 MG ORAL CAPSULE 1 cap in the morning and 2 caps in the evening ACEBUTOLOL HCL 87894925713 No Longer Active Harinder Hernandez DO Active CEFDINIR 300 MG ORAL CAPSULE take 1 cap po bid x 10 days CEFDINIR 76354838942 No Longer Active Harinder Hernandez DO Active LOVASTATIN 40 MG ORAL TABLET 1 pill by mouth nightly for cholesterol LOVASTATIN 09297483819 No Longer Active Nettie Newberry APRN Active NITROSTAT 0.4 MG SUBLINGUAL TABLET SUBLINGUAL 1 tab under tongueas needed for chest pain ( may take 3 total, 5 min apart, then call 911) NITROGLYCERIN 38455244650 No Longer Active Nettie Newberry APRN Active POTASSIUM CHLORIDE ER 10 MEQ ORAL CAPSULE EXTENDED RELEASE 1 capsule by mouth daily POTASSIUM CHLORIDE 09771446834 No Longer Active Nettie Newberry APRN Active TESSALON PERLES 100 MG ORAL CAPSULE 1 to 2 tablets by mouth 3 times daily as needed for cough BENZONATATE 63890656753 No Longer Active Nettie Newberry APRN Active PREDNISONE 20 MG ORAL TABLET 2 po qd x 5 days PREDNISONE 89647581392 No Longer Active Jae Morgan MD Active AZITHROMYCIN 250 MG ORAL TABLET 2 po qd x 1 day, then 1 po qd x 4 days 12/30 AZITHROMYCIN 51667421676 No Longer Active Jae Morgan MD Active PREDNISONE 20 MG ORAL TABLET 1 tab twice daily for 3 day, then one daily for three days PREDNISONE 86764500871 No Longer Active Jae Morgan MD Active SINGULAIR 10 MG ORAL TABLET 1 pill by mouth every evening for breathing. 2014 MONTELUKAST SODIUM 84390666451 Active Meenu Villarrealnader JOELN Active TYLENOL 325 MG ORAL TABLET 3 by mouth q4h as needed ACETAMINOPHEN 09402254035 Active Harinder Hernandez DO Active POTASSIUM CHLORIDE ER 10 MEQ ORAL TABLET EXTENDED RELEASE take 1 tab po daily POTASSIUM CHLORIDE 62121701297 No Longer Active Harinder Hernandez DO Active PREDNISONE 20 MG ORAL TABLET 1 TID x 2 days, then 1 BID x 3 days, then 1 Daily x 3 days, then stop PREDNISONE 77245332777 No Longer Active Jillina Frazell ABLE SEAMAN Active LEVAQUIN 500 MG ORAL TABLET 1 tablet by mouth daily LEVOFLOXACIN 41729004780 No Longer Active Jillina Frazell ABLE SEAMAN Active NEURONTIN 300 MG ORAL CAPSULE 1 cap by mouth three times daily for restless leg GABAPENTIN 22887173329 No Longer Active Harinder Hernandez DO Active BENZONATATE 100 MG ORAL CAPSULE 1 cap po TID PRN BENZONATATE 57674290153 No Longer Active Harinder Hernandez DO Active MONTELUKAST SODIUM 10 MG ORAL TABLET 1 tab po in the evening 2014 MONTELUKAST SODIUM 85753183478 No Longer Active Harinder Hernandez DO Active MUPIROCIN 2 % EXTERNAL OINTMENT apply to affected area BID x 14 days MUPIROCIN 63518734542 No Longer Active Harinder Hernandez DO Active TYLENOL EXTRA STRENGTH 500 MG ORAL TABLET as needed ACETAMINOPHEN 33185512861 No Longer Active Harinder Hernandez DO Active PREDNISONE 10 MG ORAL TABLET 1 tab po daily PREDNISONE 23407668397 No Longer Active Harinder Hernandez DO Active PREDNISONE 20 MG ORAL TABLET 2 tabs daily for 4 days, 1 tab daily for 4 days, 1/2 tab daily for 4 days PREDNISONE 40341916789 No Longer Active Harinder Hernandez DO Active AZITHROMYCIN 250 MG ORAL TABLET 2 po qd x 1 day, then 1 po qd x 4 days 04/06 AZITHROMYCIN 24550679000 No Longer Active Harinder Hernandez DO Active PREDNISONE 20 MG ORAL TABLET 3 tabs today, then 1 tab twice daily for 3 day, then one daily for three days PREDNISONE 31162977445 No Longer Active Harinder Hernandez DO Active NIFEDIAC CC 30 MG ORAL TABLET EXTENDED RELEASE 24 HOUR 1 tablet daily for raynaud's syndrome NIFEDIPINE 99582605689 No Longer Active Tawnya Pardo MA Active AMBIEN 10 MG ORAL TABLET 1/2 tab by mouth at bedtime as needed for sleep 2013 ZOLPIDEM TARTRATE 39965081144 Active Meenu Alejo LPN Active CLONAZEPAM 1 MG ORAL TABLET 1 tablet at bedtime for insomnia and restless legs CLONAZEPAM 65835838961 Active Harinder Hernandez DO Active CLONAZEPAM 0.5 MG ORAL TABLET 1 tab po daily CLONAZEPAM 22537642799 No Longer Active Harinder Hernandez DO Active PREDNISONE 10 MG ORAL TABLET 1 tablet daily for COPD PREDNISONE 57149113765 Active Kortney Mccain Active PROAIR HFA 108 (90 Base) MCG/ACT INHALATION AEROSOL SOLUTION 2 puffs four times a day as needed ALBUTEROL SULFATE 52905303193 Active Harinder Hernandez DO Active FLOVENT HFA 110 MCG/ACT INHALATION AEROSOL 2 puffs inhaled b.i.d. FLUTICASONE PROPIONATE HFA 56894981049 Active Kortney Mccain Active ACIPHEX 20 MG ORAL TABLET DELAYED RELEASE 1 tab po daily RABEPRAZOLE SODIUM 19332803516 Active Kaylah Newberry Active CLONAZEPAM 0.5 MG ORAL TABLET 1 tab po daily CLONAZEPAM 0.5 MG ORAL TABLET 379022 CLONAZEPAM Inactive PREDNISONE 20 MG ORAL TABLET 3 tabs today, then 1 tab twice daily for 3 day, then one daily for three days PREDNISONE 20 MG ORAL TABLET 249739 PREDNISONE Inactive PREDNISONE 20 MG ORAL TABLET 2 tabs daily for 4 days, 1 tab daily for 4 days, 1/2 tab daily for 4 days PREDNISONE 20 MG ORAL TABLET 997788 PREDNISONE Inactive PREDNISONE 10 MG ORAL TABLET 1 tab po daily PREDNISONE 10 MG ORAL TABLET 249466 PREDNISONE Inactive TYLENOL EXTRA STRENGTH 500 MG ORAL TABLET as needed TYLENOL EXTRA STRENGTH 500 MG ORAL TABLET 254750 ACETAMINOPHEN Inactive MUPIROCIN 2 % EXTERNAL OINTMENT apply to affected area BID x 14 days MUPIROCIN 2 % EXTERNAL OINTMENT 569901 MUPIROCIN Inactive MONTELUKAST SODIUM 10 MG ORAL TABLET 1 tab po in the evening 2014 MONTELUKAST SODIUM 10 MG ORAL TABLET 732806 MONTELUKAST SODIUM Inactive BENZONATATE 100 MG ORAL CAPSULE 1 cap po TID PRN BENZONATATE 100 MG ORAL CAPSULE 257168 BENZONATATE Inactive NEURONTIN 300 MG ORAL CAPSULE 1 cap by mouth three times daily for restless leg NEURONTIN 300 MG ORAL CAPSULE 784346 GABAPENTIN Inactive LEVAQUIN 500 MG ORAL TABLET 1 tablet by mouth daily LEVAQUIN 500 MG ORAL TABLET 943318 LEVOFLOXACIN Inactive PREDNISONE 20 MG ORAL TABLET 1 TID x 2 days, then 1 BID x 3 days, then 1 Daily x 3 days, then stop PREDNISONE 20 MG ORAL TABLET 831275 PREDNISONE Inactive POTASSIUM CHLORIDE ER 10 MEQ ORAL TABLET EXTENDED RELEASE take 1 tab po daily POTASSIUM CHLORIDE ER 10 MEQ ORAL TABLET EXTENDED RELEASE POTASSIUM CHLORIDE Inactive PREDNISONE 20 MG ORAL TABLET 1 tab twice daily for 3 day, then one daily for three days PREDNISONE 20 MG ORAL TABLET 205233 PREDNISONE Inactive TESSALON PERLES 100 MG ORAL CAPSULE 1 to 2 tablets by mouth 3 times daily as needed for cough TESSALON PERLES 100 MG ORAL CAPSULE 967289 BENZONATATE Inactive POTASSIUM CHLORIDE ER 10 MEQ ORAL CAPSULE EXTENDED RELEASE 1 capsule by mouth daily POTASSIUM CHLORIDE ER 10 MEQ ORAL CAPSULE EXTENDED RELEASE POTASSIUM CHLORIDE Inactive NITROSTAT 0.4 MG SUBLINGUAL TABLET SUBLINGUAL 1 tab under tongueas needed for chest pain ( may take 3 total, 5 min apart, then call 911) NITROSTAT 0.4 MG SUBLINGUAL TABLET SUBLINGUAL 467657 NITROGLYCERIN Inactive LOVASTATIN 40 MG ORAL TABLET 1 pill by mouth nightly for cholesterol LOVASTATIN 40 MG ORAL TABLET 414965 LOVASTATIN Inactive CEFDINIR 300 MG ORAL CAPSULE take 1 cap po bid x 10 days CEFDINIR 300 MG ORAL CAPSULE 118753 CEFDINIR Inactive ACEBUTOLOL HCL 200 MG ORAL CAPSULE 1 cap in the morning and 2 caps in the evening ACEBUTOLOL HCL 200 MG ORAL CAPSULE 694360 ACEBUTOLOL HCL Inactive VENTOLIN HFA 108 (90 Base) MCG/ACT INHALATION AEROSOL SOLUTION 2 -4 puffs four times a day PRN VENTOLIN HFA 108 (90 Base) MCG/ ACT INHALATION AEROSOL SOLUTION ALBUTEROL SULFATE Inactive LEVAQUIN 500 MG ORAL TABLET Take 1 tab po daily x 8 days LEVAQUIN 500 MG ORAL TABLET 232081 LEVOFLOXACIN Inactive PREDNISONE 20 MG ORAL TABLET 2 tabs daily for 4 days, 1 tab daily for 4 days, 1/2 tab daily for 4 days PREDNISONE 20 MG ORAL TABLET 373943 PREDNISONE Inactive LOVASTATIN 40 MG ORAL TABLET Take 1 tab po every hs LOVASTATIN 40 MG ORAL TABLET 781771 LOVASTATIN Inactive DILAUDID 2 MG ORAL TABLET Take 1/2 tab po every 4 hours as needed for pain DILAUDID 2 MG ORAL TABLET 338422 HYDROMORPHONE HCL Inactive AMITRIPTYLINE HCL 25 MG ORAL TABLET 1 q hs prn AMITRIPTYLINE HCL 25 MG ORAL TABLET 165326 AMITRIPTYLINE HCL Inactive MECLIZINE HCL 25 MG ORAL TABLET 1 tablet three times daily for 3 days, then 1/ 2 tab three times daily for 3 days. MECLIZINE HCL 25 MG ORAL TABLET 942099 MECLIZINE HCL Inactive AMLODIPINE BESYLATE 5 MG ORAL TABLET Take 1 tab po daily AMLODIPINE BESYLATE 5 MG ORAL TABLET 572674 AMLODIPINE BESYLATE Inactive TOPIRAMATE 25 MG ORAL TABLET 1 tab po BID TOPIRAMATE 25 MG ORAL TABLET 773411 TOPIRAMATE Inactive PREDNISONE 20 MG ORAL TABLET 1 tablet twice daily for 2 days, then 1 tablet once daily for 2 days PREDNISONE 20 MG ORAL TABLET 235850 PREDNISONE Inactive PREDNISONE 20 MG ORAL TABLET 1 tab twice daily for 3 day, then one daily for three days PREDNISONE 20 MG ORAL TABLET 183321 PREDNISONE Inactive NIFEDIPINE ER 30 MG ORAL TABLET EXTENDED RELEASE 24 HOUR 1 daily NIFEDIPINE ER 30 MG ORAL TABLET EXTENDED RELEASE 24 HOUR NIFEDIPINE Inactive AMLODIPINE BESYLATE 5 MG ORAL TABLET 1 tablet by mouth daily 2016 AMLODIPINE BESYLATE 5 MG ORAL TABLET 890028 AMLODIPINE BESYLATE Inactive LASIX 20 MG ORAL TABLET 1 tablet by mouth every morning LASIX 20 MG ORAL TABLET 754205 FUROSEMIDE Inactive POTASSIUM CHLORIDE ER 10 MEQ ORAL CAPSULE EXTENDED RELEASE 1 capsule BID 2016 POTASSIUM CHLORIDE ER 10 MEQ ORAL CAPSULE EXTENDED RELEASE POTASSIUM CHLORIDE Inactive POTASSIUM CHLORIDE 20 MEQ ORAL PACKET 1 tab po q day POTASSIUM CHLORIDE 20 MEQ ORAL PACKET 1387259 POTASSIUM CHLORIDE Inactive AZITHROMYCIN 250 MG ORAL TABLET 2 po qd x 1 day, then 1 po qd x 4 days 04/06 AZITHROMYCIN 250 MG ORAL TABLET 485933 AZITHROMYCIN Inactive AZITHROMYCIN 250 MG ORAL TABLET 2 po qd x 1 day, then 1 po qd x 4 days 12/30 AZITHROMYCIN 250 MG ORAL TABLET 072931 AZITHROMYCIN Inactive PREDNISONE 20 MG ORAL TABLET 2 po qd x 5 days PREDNISONE 20 MG ORAL TABLET 188109 PREDNISONE Inactive Vital Signs Date Name Value Unit Range Description blood pressure, diastolic 65 mm[Hg] BP adan blood pressure, systolic 124 mm[Hg] BP sys height E&M 64 [in_us] Bdy height pulse rate E&M 66 /min Heart rate temperature E&M 97.3 [degF] Body temperature weight E&M 130.5 [lb_av] Weight Measured blood pressure, diastolic 69 [...] temperature weight E&M 137 [lb_av] Weight Measured Diagnostic Results Date Name Value Unit Range Description Lab Report: Basic Metabolic Panel - Chemistry sodium, serum 140 mmol/L 580-614 6562/07/13 potassium, serum 3.2 mmol/L 3.5-5.2 chloride, serum 103 mmol/L 98-107 carbon dioxide, venous blood 26.9 mmol/L 21.0-32.0 blood glucose 93 mg/dL 65-110 calcium, serum 9.2 mg/dL 8.5-10.1 urea nitrogen, blood 13 mg/dL 7-18 creatinine, serum 0.84 mg/dL 0.60-1.30 sodium, serum 140 mmol/L 669-784 4674/08/21 potassium, serum 3.8 mmol/L 3.5-5.2 chloride, serum 105 mmol/L 98-107 carbon dioxide, venous blood 26.9 mmol/L 21.0-32.0 blood glucose 85 mg/dL 65-110 calcium, serum 8.8 mg/dL 8.5-10.1 urea nitrogen, blood 11 mg/dL 7-18 creatinine, serum 0.95 mg/dL 0.60-1.30 Lab Report: CBC - Hematology leukocyte count, blood 7.2 10^3/MM^3 10*3/mm3 4.6-10.2 erythrocyte (RBC) count 4.40 10^6/MM^3 10*6/mm3 3.80-5.80 hemoglobin, blood 14.2 g/dL 12.0-16.0 hematocrit, blood 42.7 % 37.0-47.0 mean corpuscular volume, RBC 97 fL 80-97 mean corpuscular hemoglobin, RBC 32.3 pg 27.0-31.2 mean corpuscular hemoglobin concentration, RBC 33.2 G/DL % 31.8- 35.4 red blood cell distribution width 12.6 % 11.6-14.8 platelet count 246 10^3/MM^3 10*3/mm3 142-424 Lab Report: CBC, UADIP [...] ... - Chemistry sodium, serum 141 mmol/L 097-369 1239/08/07 carbon dioxide, venous blood 34.0 mmol/L 21.0-32.0 [...] 0.00-1.00 TSH 0.80 m[iU]/mL 0.36-3.74 Lab Report: HEPATIC PANEL, Lipid Panel - Chemistry aspartate aminotransferase (SGOT), serum 19 U/L 15-37 alanine aminotransferase (SGPT), serum 23 U/L -78 bilirubin, serum, total 1.40 mg/dL 0.00-1.00 cholesterol, serum 192 mg/dL 734-660 6985/10/19 triglyceride, serum, fasting 71 mg/dL 30-200 HDL cholesterol, serum 72 mg/dL 32-60 LDL cholesterol, serum 106 mg/dL 0-130 Lab Report: THEOPHYLLINE - Toxicology theophylline level, serum 3.1 ug/mL 10.0-20.0 Encounters Code Encounter Date Provider Facility CPT-88092 Level 3 Est. Patient 15:14:45 RADIO DESPATCHER Harinder Cr [facility] CPT-82864 Level 4 Est. Patient 14:45:25 CDT [facility] CPT-32123 Level 4 Est. Patient 09:15:13 CDT [facility] CPT-66606 Level 3 Est. Patient 11:51:58 CDT Harinder Hernandez [facility] CPT-14616 Level 3 Est. Patient 11:30:05 CDT Harinder Hernandez [facility] CPT-07647 Level 4 Est. Patient 10:19:23 CDT Harinder Hernandez [facility] CPT-58882 Level 3 Est. Patient 09:58:58 CDT Harinder Hernandez [facility] CPT-08627 Level 3 Est. Patient 12:37:21 CDT Harinder Cr [facility] CPT-83179 Level 3 Est. Patient 18:37:17 CDT Harinder Hernandez [facility] CPT-72464 Level 4 Est. Patient 11:15:54 CDT Nettie Newberry APRN [facility] CPT-15282 Level 3 Est. Patient 16:42:24 CDT [facility]inder Cr [facility] CPT-54221 Level 3 Est. Patient 15:03:36 CDT Harinder Cr [facility] CPT-51950 Level 3 Est. Patient 15:03:20 CDT Harinder Hernandez [facility] CPT-25149 Level 3 Est. Patient 12:14:34 CDT Harinder Hernandez [facility] CPT-94048 Level 3 Est. Patient 13:47:15 CDT Harinder Hernandez [facility] CPT-50084 Level 3 Est. Patient 14:08:24 CDT Harinder Hernandez [facility] CPT-83250 Level 3 Est. Patient 10:07:15 CDT Harinder Cr [facility] CPT-75319 Level 3 Est. Patient 10:06:59 CDT Harinder Cr [facility] CPT-81697 Level 3 Est. Patient 15:53:29 CDT Jae Morgan MD [facility] CPT-17327 Level 3 Est. Patient 17:19:04 CDT Harinder Hernanedz [facility] CPT-73614 Level 3 Est. Patient 11:13:01 CDT Harinder Hernandez [facility] CPT-44452 Level 3 Est. Patient 09:03:58 CDT Harinder Hernandez [facility] CPT-80818 Level 3 Est. Patient 14:46:45 RADIO DESPATCHER Harinder Hernandez [facility] CPT-80725 Level 3 Est. Patient 09:35:49 RADIO DESPATCHER Harinder Hernandez [facility] CPT-33344 Level 3 Est. Patient 09:29:37 RADIO DESPATCHER Harinder Hernandez [facility] CPT-56307 Level 3 Est. Patient 15:51:07 CDT Harinder Hernandez [facility] CPT-71889 Level 3 Est. Patient 18:13:13 CDT Harinder Hernandez [facility] CPT-71615 Level 3 Est. Patient 10:44:19 CDT Harinder Cr [facility] CPT-22415 Level 4 Est. Patient 10:07:19 RADIO DESPATCHER Harinder Hernandez [facility] CPT-84496 Level 3 Est. Patient 15:59:32 RADIO DESPATCHER Harinder Cr [facility] Procedures Code Procedure Name Date Entry Date Standard Description CPT-54865 Abd compl w upright - XRAY USE ONLY 14:48:09 CDT 02/18 CPT-35452 Port a cath flush 13:46:05 CDT CPT-50844 Hip, complete, 2-3 views - XRAY USE ONLY 10:28:40 CDT CPT-01363 BMP - LAB USE ONLY 16:45:09 RADIO DESPATCHER CPT-37164 Port a cath flush 12:00:13 RADIO DESPATCHER CPT-TCMM Transitional Care Mgmt-Moderate 11:20:16 RADIO DESPATCHER CPT-90686 First Vx - Ix admin for Medicare patients 17:35:15 CDT CPT-41424 Fluzone Preservative Free Intramuscular Suspension 17:35 :15 CDT CPT-71113 Microalbumin - LAB USE ONLY 11:52:05 CDT CPT-TCMM Transitional Care Mgmt-Moderate 11:33:57 CDT CPT-26361 No Charge Offi Visit 14:11:29 CDT CPT-12624 Magnesium - LAB USE ONLY 10:45:44 CDT CPT-30932 Lipid - LAB USE ONLY 10:45:44 CDT CPT-22842 CBC - LAB USE ONLY 10:45:44 CDT CPT-95287 Venipuncture Draw Fee 10:45:43 CDT CPT-13903 Venipuncture Draw Fee 18:21:27 CDT CPT-JTINJ Asp/Joint Injection 18:38:04 CDT CPT-18648 Immunization Each Additional Inj 17:38:04 CDT CPT-68085 Immunization Single Admin 17:38:04 CDT CPT-08056 Prevnar 13 17:38:04 CDT CPT-38205 Fluzone Quadrivalent preservative free (>=3yrs.) 17:38: 04 CDT CPT-41746 No Charge Offi Visit 11:14:03 CDT CPT-64629 Chest 2V Frontal and Lat 14:00:18 CDT CPT-OV Office Visit 16:10:28 CDT CPT-JTINJ Asp/Joint Injection 09:03:57 CDT CPT-Cryo Cryotherapy 09:35:49 RADIO DESPATCHER CPT-JTINJ Asp/Joint Injection 09:34:45 RADIO DESPATCHER CPT-J2930 Solu Medrol 125 mg (Methyl Prednisolone Sodium Succinate) 20:37:27 CDT CPT-87615 Abx/Therapy Injection 20:37:27 CDT CPT-07884 Port a cath flush 08:15:51 CDT CPT-31118 Port a cath flush 09:54:16 CDT CPT-17862 Port a cath flush 09:38:02 CDT CPT-55906 Port a cath flush 11:00:27 RADIO DESPATCHER
--- OUTSIDE RECORDS SUMMARY | 2017-12-28 23:43 | XMS REPORT | Clinical Summary ---
Author Author Admin, QIE Organization [facility] Address Unknown Phone Unavailable Allergies, Adverse Reactions, Alerts Allergy Name Reaction Description Start Date Severity Status Provider LEVAQUIN stomach upset, diarrhea, and itching Critical Active Harinder Hernandez DO AITHROMYCIN itch Moderate Active Harinder Hernandez DO NEOSPORIN Critical Active Harinder Hernandez DO TRAMADOL HCL Critical Active Harinder Hernandez DO REQUIP Critical Active Harinder W David DO PENICILLIN V POTASSIUM Critical Active Harinder W David DO MORPHINE Critical Active Harinder Hernandez DO LATEX Critical Active Harinder Hernandez DO IBUPROFEN Critical Active Harinder Hernandez DO HYDROCODONE-ACETAMINOPHEN Critical Active Harinder Hernandez DO [facility] CORTISONE LONG-LASTING Critical Active Harinder Hernandez DO AVELOX Critical Active Harinder W David DO DOXYCYCLINE Critical Active Harinder Hernandez DO [...] , organism unspecified Bacteremia 790.7 Resolved Harinder Shaye Hernandez DO Unspecified bacteremia Clostridium difficile colitis 008.45 Resolved Harinder Shaye Hernandez DO Intestinal infection due to clostridium difficile Abdominal pain, right lower quadrant 789.03 Resolved Harinder Shaye Hernandez DO Abdominal pain, right lower quadrant Needs vaccination for influenza V04.81 Resolved Harinder Shaye Hernandez DO Need for prophylactic vaccination and inoculation against influenza Need for prophylactic vaccination against streptococcus pneumoniae ( Pneumococcus) V03.82 Resolved Harinder Shaye Hernandez DO Need for prophylactic vaccination against Streptococcus pneumoniae [pneumococcus ] Greater trochanteric bursitis, left 726.5 Resolved Harinder Cr David DO Enthesopathy of hip region Dysphagia 787.20 Active Harinder Hernandez DO Dysphagia , unspecified Hx of ischemic cerebrovascular accident with residual deficit 438.9 Active Harinder Cr David DO Unspecified late effects of cerebrovascular disease Venous insufficiency 459.81 Active Nettie Newberry APRN Venous (peripheral) insufficiency, unspecified Breast mass, right ICD-611.72 Inactive Harinder Shaye Hernandez Encounter for fitting and adjustment of vascular catheter ICD-V58.81 Inactive Harinder Shaye David DO Back pain, lumbar ICD-724.2 Inactive Harinder Shaye David DO Insomnia ICD-780.52 Inactive Harinder Shaye Hernandez DO Sacroiliitis, right ICD-720.2 Inactive Harinder Shaye Hernandez DO Biceps tendinitis, left ICD-726.12 Inactive Harinder Shaye Hernandez DO Nausea and vomiting ICD-787.01 Inactive Jae Morgan MD Diarrhea ICD-787.91 Inactive Jae Morgan MD Benign positional vertigo ICD-386.11 Inactive Harinder Hernandez DO Colon cancer screening ICD-V76.51 Inactive Harinder Hernandez [...] Generic Name NDC Status Provider Patient Instruction NIFEDIPINE ER 30 MG ORAL [id number] 1 daily NIFEDIPINE 18258363096 Active Tawnya Pardo MA Active TOPIRAMATE 25 MG TABS 1 tab po BID TOPIRAMATE 77406123504 No Longer Active Nettie Newberry APRN Active AMLODIPINE BESYLATE 5 MG ORAL TABS Take 1 tab po daily AMLODIPINE BESYLATE 79354178054 No Longer Active Nettie Newberry APRN Active MECLIZINE HCL 25 MG TAB 1 tablet three times daily for 3 days, then 1/2 tab three times daily for 3 days. MECLIZINE HCL 55218426922 No Longer Active Nettie Newberry APRN Active AMITRIPTYLINE HCL 25 MG ORAL TABS 1 q hs prn AMITRIPTYLINE HCL 43063530915 No Longer Active Nettieog Newberry APRN Active DILAUDID 2 MG ORAL TABS Take 1/2 tab po every 4 hours as needed for pain 2014 HYDROMORPHONE HCL 78460057233 No Longer Active Nettie Newberry APRN Active CLOPIDOGREL BISULFATE 75 MG ORAL TABS 1 tab by mouth once daily CLOPIDOGREL BISULFATE 78629659822 Active Tawnya Pardo MA Active ATORVASTATIN CALCIUM 10 MG ORAL TABS 1 at bedtime ATORVASTATIN CALCIUM 15783214679 Active Tawnya Pardo MA Active LOVASTATIN 40 MG ORAL TABS Take 1 tab po every hs LOVASTATIN 73974882912 No Longer Active Harinder Hernandez DO Active PREDNISONE 20 MG TAB 2 tabs daily for 4 days, 1 tab daily for 4 days, 1/2 tab daily for 4 days PREDNISONE 89573740777 No Longer Active Harinder Hernandez DO Active LEVAQUIN 500 MG ORAL TABS Take 1 tab po daily x 8 days LEVOFLOXACIN 13736640059 No Longer Active Harinder Hernandez DO Active VENTOLIN HFA 108 (90 BASE) MCG/ACT AERS 2 -4 puffs four times a day PRN 2013 ALBUTEROL SULFATE 81223692199 No Longer Active Jeri Sosa RPT,RMA Active ACEBUTOLOL HCL 200 MG CAPS 1 cap in the morning and 2 caps in the evening ACEBUTOLOL HCL 58553559944 No Longer Active aHrinder Hernandez DO Active CEFDINIR 300 MG ORAL CAPS take 1 cap po bid x 10 days CEFDINIR 49941324125 No Longer Active Harinder Hernandez DO Active LOVASTATIN 40 MG TABS 1 pill by mouth nightly for cholesterol LOVASTATIN 87236074473 No Longer Active Nettie Newberry APRN Active NITROSTAT 0.4 MG SUBL 1 tab under tongueas needed for chest pain ( may take 3 total, 5 min apart, then call 911) NITROGLYCERIN 06539444241 No Longer Active Nettie Newberry APRN Active POTASSIUM CHLORIDE CR 10 MEQ CPCR 1 capsule by mouth daily 02/14 POTASSIUM CHLORIDE 14019556626 No Longer Active Nettieog Newberry APRN Active TESSALON PERLES 100 MG CAP 1 to 2 tablets by mouth 3 times daily as needed for cough BENZONATATE 29930294964 No Longer Active Nettie Newberry APRN Active THEOPHYLLINE ER 200 MG ORAL [id number] Take 1 tab every 12 hours THEOPHYLLINE 62931013202 Active Tawnya Pardo MA Active PREDNISONE 20 MG TAB 2 po qd x 5 days PREDNISONE 55100898734 No Longer Active Jae Morgan MD Active AZITHROMYCIN 250 MG TABS 2 po qd x 1 day, then 1 po qd x 4 days AZITHROMYCIN 90256919880 No Longer Active Jae Morgan MD Active PREDNISONE 20 MG TAB 1 tab twice daily for 3 day, then one daily for three days PREDNISONE 17001186887 No Longer Active Jae Morgan MD Active SINGULAIR 10 MG TABS 1 pill by mouth every evening for breathing. MONTELUKAST SODIUM 95719407752 Active Tawnya Pardo MA Active TYLENOL 325 MG TAB 3 by mouth q4h as needed ACETAMINOPHEN 00276281717 Active Harinder Hernandez DO Active POTASSIUM CHLORIDE ER 10 MEQ CR-TABS take 1 tab po daily POTASSIUM CHLORIDE 86998985879 No Longer Active Harinder Hernandez DO Active PREDNISONE 20 MG TAB 1 TID x 2 days, then 1 BID x 3 days, then 1 Daily x 3 days, then stop PREDNISONE 05788202946 No Longer Active Jillkvng Montemayor APRN Active LEVAQUIN 500 MG TAB 1 tablet by mouth daily LEVOFLOXACIN 07916939737 No Longer Active Jillina Sim MCCRAY Active NEURONTIN 300 MG CAP 1 cap by mouth three times daily for restless leg 06/22 GABAPENTIN 40731408525 No Longer Active Harinder Hernandez DO Active BENZONATATE 100 MG CAPS 1 cap po TID PRN BENZONATATE 35085513979 No Longer Active Harinder Hernandez DO Active MONTELUKAST SODIUM 10 MG TABS 1 tab po in the evening MONTELUKAST SODIUM 41144258806 No Longer Active Harinder Hernandez DO Active MUPIROCIN 2 % OINT apply to affected area BID x 14 days MUPIROCIN 19692184471 No Longer Active Harinder Hernandez DO Active TYLENOL EXTRA STRENGTH 500 MG TABS as needed ACETAMINOPHEN 07563546734 No Longer Active Harinder Hernandez DO Active PREDNISONE 10 MG TABS 1 tab po daily PREDNISONE 22044015170 No Longer Active Harinder Hernandez DO Active PREDNISONE 20 MG TAB 2 tabs daily for 4 days, 1 tab daily for 4 days, 1/2 tab daily for 4 days PREDNISONE 34513209564 No Longer Active Harinder Hernandez DO Active AZITHROMYCIN 250 MG TABS 2 po qd x 1 day, then 1 po qd x 4 days AZITHROMYCIN 74503887908 No Longer Active Harinder Hernandez DO Active PREDNISONE 20 MG TAB 3 tabs today, then 1 tab twice daily for 3 day, then one daily for three days PREDNISONE 37612529424 No Longer Active Harinder Hernandez DO Active NIFEDIAC CC 30 MG [id number] 1 tablet daily for raynaud's syndrome NIFEDIPINE 94431399898 No Longer Active Tawnya Pardo MA Active AMBIEN 10 MG TAB 1/2 tab by mouth at bedtime as needed for sleep ZOLPIDEM TARTRATE 33002293279 Active Harinder Hernandez DO Active CLONAZEPAM 1 MG TABS 1 tablet at bedtime for insomnia and restless legs 09/14 CLONAZEPAM 32008044451 Active Harinder Hernandez DO Active CLONAZEPAM 0.5 MG TABS 1 tab po daily CLONAZEPAM 09954537406 No Longer Active Harinder Hernandez DO Active PREDNISONE 10 MG TAB 1 tablet daily for COPD PREDNISONE 67317091917 Active Tawnya Pardo MA Active PROAIR HFA 108 (90 BASE) MCG/ACT AERS 2 puffs four times a day as needed 2012 ALBUTEROL SULFATE 67322073347 Active Tawnya Pardo MA Active FLOVENT HFA 110 MCG/ACT AERO 2 puffs inhaled b.i.d. FLUTICASONE PROPIONATE HFA 75472826843 Active Tawnya Pardo MA Active EPIPEN 0.3 MG/0.3ML URIEL DIRECTED EPINEPHRINE Active Demetrius JOHNSON Active ACIPHEX 20 MG TBEC 1 tab po daily RABEPRAZOLE SODIUM 40454108227 Active Tawnya Pardo MA Active CLONAZEPAM 0.5 MG TABS 1 tab po daily CLONAZEPAM 0.5 MG TABS 802756 CLONAZEPAM Inactive PREDNISONE 20 MG TAB 3 tabs today, then 1 tab twice daily for 3 day, then one daily for three days PREDNISONE 20 MG TAB 064071 PREDNISONE Inactive PREDNISONE 20 MG TAB 2 tabs daily for 4 days, 1 tab daily for 4 days, 1/2 tab daily for 4 days PREDNISONE 20 MG TAB 456180 PREDNISONE Inactive PREDNISONE 10 MG TABS 1 tab po daily PREDNISONE 10 MG TABS 281277 PREDNISONE Inactive TYLENOL EXTRA STRENGTH 500 MG TABS as needed TYLENOL EXTRA STRENGTH 500 MG TABS ACETAMINOPHEN Inactive MUPIROCIN 2 % OINT apply to affected area BID x 14 days MUPIROCIN 2 % OINT 496513 MUPIROCIN Inactive MONTELUKAST SODIUM 10 MG TABS 1 tab po in the evening MONTELUKAST SODIUM 10 MG TABS 20010818 MONTELUKAST SODIUM Inactive BENZONATATE 100 MG CAPS 1 cap po TID PRN BENZONATATE 100 MG CAPS 085369 BENZONATATE Inactive NEURONTIN 300 MG CAP 1 cap by mouth three times daily for restless leg 06/22 NEURONTIN 300 MG CAP 095462 GABAPENTIN Inactive LEVAQUIN 500 MG TAB 1 tablet by mouth daily LEVAQUIN 500 MG TAB 444161 LEVOFLOXACIN Inactive PREDNISONE 20 MG TAB 1 TID x 2 days, then 1 BID x 3 days, then 1 Daily x 3 days, then stop PREDNISONE 20 MG TAB 898548 PREDNISONE Inactive POTASSIUM CHLORIDE ER 10 MEQ CR-TABS take 1 tab po daily POTASSIUM CHLORIDE ER 10 MEQ CR-TABS POTASSIUM CHLORIDE Inactive PREDNISONE 20 MG TAB 1 tab twice daily for 3 day, then one daily for three days PREDNISONE 20 MG TAB 275838 PREDNISONE Inactive TESSALON PERLES 100 MG CAP 1 to 2 tablets by mouth 3 times daily as needed for cough TESSALON PERLES 100 MG CAP 705627 BENZONATATE Inactive POTASSIUM CHLORIDE CR 10 MEQ CPCR 1 capsule by mouth daily 02/14 POTASSIUM CHLORIDE CR 10 MEQ CPCR POTASSIUM CHLORIDE Inactive NITROSTAT 0.4 MG SUBL 1 tab under tongueas needed for chest pain ( may take 3 total, 5 min apart, then call 911) NITROSTAT 0.4 MG SUBL NITROGLYCERIN Inactive LOVASTATIN 40 MG TABS 1 pill by mouth nightly for cholesterol LOVASTATIN 40 MG TABS 838935 LOVASTATIN Inactive CEFDINIR 300 MG ORAL CAPS take 1 cap po bid x 10 days CEFDINIR 300 MG ORAL CAPS 327204 CEFDINIR Inactive ACEBUTOLOL HCL 200 MG CAPS 1 cap in the morning and 2 caps in the evening ACEBUTOLOL HCL 200 MG CAPS 298881 ACEBUTOLOL HCL Inactive VENTOLIN HFA 108 (90 BASE) MCG/ACT AERS 2 -4 puffs four times a day PRN 2013 VENTOLIN HFA 108 (90 BASE) MCG/ACT AERS ALBUTEROL SULFATE Inactive LEVAQUIN 500 MG ORAL TABS Take 1 tab po daily x 8 days LEVAQUIN 500 MG ORAL TABS 188621 LEVOFLOXACIN Inactive PREDNISONE 20 MG TAB 2 tabs daily for 4 days, 1 tab daily for 4 days, 1/2 tab daily for 4 days PREDNISONE 20 MG TAB 635161 PREDNISONE Inactive LOVASTATIN 40 MG ORAL TABS Take 1 tab po every hs LOVASTATIN 40 MG ORAL TABS 247126 LOVASTATIN Inactive DILAUDID 2 MG ORAL TABS Take 1/2 tab po every 4 hours as needed for pain 2014 DILAUDID 2 MG ORAL TABS 155540 HYDROMORPHONE HCL Inactive AMITRIPTYLINE HCL 25 MG ORAL TABS 1 q hs prn AMITRIPTYLINE HCL 25 MG ORAL TABS 439442 AMITRIPTYLINE HCL Inactive MECLIZINE HCL 25 MG TAB 1 tablet three times daily for 3 days, then 1/2 tab three times daily for 3 days. MECLIZINE HCL 25 MG TAB 883926 MECLIZINE HCL Inactive AMLODIPINE BESYLATE 5 MG ORAL TABS Take 1 tab po daily AMLODIPINE BESYLATE 5 MG ORAL TABS 857783 AMLODIPINE BESYLATE Inactive TOPIRAMATE 25 MG TABS 1 tab po BID TOPIRAMATE 25 MG TABS 997755 TOPIRAMATE Inactive AZITHROMYCIN 250 MG TABS 2 po qd x 1 day, then 1 po qd x 4 days AZITHROMYCIN 250 MG TABS 4111801 AZITHROMYCIN Inactive AZITHROMYCIN 250 MG TABS 2 po qd x 1 day, then 1 po qd x 4 days AZITHROMYCIN 250 MG TABS 9426271 AZITHROMYCIN Inactive PREDNISONE 20 MG TAB 2 po qd x 5 days PREDNISONE 20 MG TAB 671256 PREDNISONE Inactive Vital Signs Date Name Value Unit Range Description blood pressure, diastolic - 8462-4 72 mm[Hg] BP adan blood pressure, systolic - 8480-6 113 mm[Hg] BP sys pulse rate E&M - 8867-4 72 /min Heart rate temperature E&M 97.6 [degF] Body temperature weight E&M - 3141-9 124 [lb_av] Weight Measured blood pressure, diastolic - 8462-4 69 mm[Hg] BP adan blood pressure, systolic - 8480-6 118 mm[Hg] BP sys pulse rate E&M - 8867-4 65 /min Heart rate temperature E&M 97.5 [degF] Body temperature weight E&M - 3141-9 124 [lb_av] Weight Measured blood pressure, diastolic - 8462-4 70 mm[Hg] BP adan blood pressure, systolic - 8480-6 116 mm[Hg] BP sys pulse rate E&M - 8867-4 101 /min Heart rate temperature E&M 98.5 [degF] Body temperature weight E&M - 3141-9 125 [lb_av] Weight Measured blood pressure, diastolic - 8462-4 71 mm[Hg] BP adan blood pressure, systolic - 8480-6 124 mm[Hg] BP sys pulse rate E&M - 8867-4 70 /min Heart rate temperature E&M 96.7 [degF] Body temperature weight E&M - 3141-9 121 [lb_av] Weight Measured blood pressure, diastolic, standing 74 mm[Hg] BP adan blood pressure, systolic, standing 113 mm[Hg] BP sys pulse rate E&M - 8867-4 134 /min Heart rate temperature E&M 100.2 [degF] Body temperature weight E&M - 3141-9 121 [lb_av] Weight Measured blood pressure, diastolic - 8462-4 74 mm[Hg] BP adan blood pressure, systolic - 8480-6 109 mm[Hg] BP sys pulse rate E&M - 8867-4 76 /min Heart rate temperature E&M 98.1 [degF] Body temperature weight E&M - 3141-9 121.8 [lb_av] Weight Measured blood pressure, diastolic - 8462-4 70 mm[Hg] BP adan blood pressure, systolic - 8480-6 117 mm[Hg] BP sys pulse rate E&M - 8867-4 66 /min Heart rate temperature E&M 97.3 [degF] Body temperature weight E&M - 3141-9 120 [lb_av] Weight Measured blood pressure, diastolic - 8462-4 70 mm[Hg] BP adan blood pressure, systolic - 8480-6 121 mm[Hg] BP sys pulse rate E&M - 8867-4 64 /min Heart rate temperature E&M 98.7 [degF] Body temperature weight E&M - 3141-9 129 [lb_av] Weight Measured blood pressure, diastolic - 8462-4 75 mm[Hg] BP adan blood pressure, systolic - 8480-6 115 mm[Hg] BP sys pulse rate E&M - 8867-4 64 /min Heart rate temperature E&M 96.7 [degF] Body temperature weight E&M - 3141-9 133.2 [lb_av] Weight Measured blood pressure, diastolic - 8462-4 75 mm[Hg] BP adan blood pressure, systolic - 8480-6 126 mm[Hg] BP sys pulse rate E&M - 8867-4 70 /min Heart rate temperature E&M 97.2 [degF] Body temperature weight E&M - 3141-9 130.9 [lb_av] Weight Measured blood pressure, diastolic - 8462-4 72 mm[Hg] BP adan blood pressure, systolic - 8480-6 115 mm[Hg] BP sys pulse rate E&M - 8867-4 66 /min Heart rate temperature E&M 97.2 [degF] Body temperature weight E&M - 3141-9 134.2 [lb_av] Weight Measured blood pressure, diastolic - 8462-4 68 mm[Hg] BP adan blood pressure, systolic - 8480-6 117 mm[Hg] BP sys pulse rate E&M - 8867-4 74 /min Heart rate temperature E&M 98.4 [degF] Body temperature weight E&M - 3141-9 132.6 [lb_av] Weight Measured Diagnostic Results Date Name Value Unit Range Description Lab Report: Basic Metabolic Panel - Chemistry sodium, serum 138 mmol/L 944-308 1422/09/24 potassium, serum 3.5 mmol/L 3.5-5.2 chloride, serum 102 mmol/L 98-107 carbon dioxide, venous blood 29.1 mmol/L 21.0-32.0 blood glucose 81 mg/dL 65-110 calcium, serum 8.7 mg/dL 8.5-10.1 urea nitrogen, blood 6 mg/dL 7-18 creatinine, serum 0.77 mg/dL 0.55-1.30 Lab Report: CBC W/DIFF - Hematology leukocyte count, blood 7.0 10^3/MM^3 10*3/mm3 4.6-10.2 neutrophils as percent of blood leukocytes 41.8 % 42.2-75.2 monocytes as percent of blood leukocytes 7.6 % 1.7-9.3 lymphocytes as percent of blood leukocytes 44.3 % 20.5-51.1 erythrocyte (RBC) count 3.42 10^6/MM^3 10*6/mm3 4.04-5.48 hemoglobin, blood 11.0 g/dL 12.0-16.0 hematocrit, blood 32.9 % 36.0-46.0 mean corpuscular volume, RBC 96 fL 80-97 mean corpuscular hemoglobin, RBC 32.3 pg 27.0-31.2 mean corpuscular hemoglobin concentration, RBC 33.6 G/DL % 31.8- 35.4 red blood cell distribution width 15.9 % 11.6-14.8 platelet count 326 10^3/MM^3 10*3/mm3 142-424 Encounters Code Encounter Date Provider Facility CPT-13895 Level 4 Est. Patient 11:15:54 CDT Nettie Newberry [employer] [facility] CPT-18346 Level 3 Est. Patient 16:42:24 CDT Harinder Cr [facility] CPT-16763 Level 3 Est. Patient 15:03:36 CDT Harinder Hernandez [facility] CPT-21244 Level 3 Est. Patient 15:03:20 CDT Harinder Cr [facility] CPT-44333 Level 3 Est. Patient 12:14:34 CDT Harinder Hernandez [facility] CPT-20897 Level 3 Est. Patient 13:47:15 CDT Harinder Cr [facility] CPT-16969 Level 3 Est. Patient 14:08:24 CDT Harinder Hernandez [facility] CPT-52894 Level 3 Est. Patient 10:07:15 CDT Harinder Cr [facility] CPT-10466 Level 3 Est. Patient 10:06:59 CDT Harinder Hernandez [facility] CPT-49913 Level 3 Est. Patient 15:53:29 CDT Jae Morgan [facility] CPT-58634 Level 3 Est. Patient 17:19:04 CDT Harinder Hernandez [facility] CPT-43838 Level 3 Est. Patient 11:13:01 CDT Harinder Hernandez [facility] CPT-90945 Level 3 Est. Patient 09:03:58 CDT Harinder Hernandez [facility] CPT-06815 Level 3 Est. 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 Patient 09:35:49 PIPE PRODUCTION WORKER Harinder Hernandez [facility] CPT-55119 Level 3 Est. Patient 09:29:37 PIPE PRODUCTION WORKER Harinder Hernandez [facility] CPT-30591 Level 3 Est. Patient 15:51:07 CDT Harinder Hernandez [facility] CPT-86921 Level 3 Est. Patient 18:13:13 CDT Harinder Hernandez [facility] CPT-50280 Level 3 Est. Patient 10:44:19 CDT Harinder Hernandez [facility] CPT-67963 Level 4 Est. Patient 10:07:19 PIPE PRODUCTION WORKER Harinder Hernandez [facility] CPT-43985 Level 3 Est. Patient 15:59:32 PIPE PRODUCTION WORKER Harinder Hernandez [facility] Procedures Code Procedure Name Date Entry Date Standard Description CPT-70699 Immunization Each Additional Inj 17:38:04 CDT CPT-70239 Immunization Single Admin 17:38:04 CDT CPT-50735 Prevnar 13 17:38:04 CDT CPT-50132 Fluzone Quadrivalent preservative free (>=3yrs.) 17:38: 04 CDT CPT-84582 No Charge Offi Visit 11:14:03 CDT CPT-22052 Chest 2V Frontal and Lat 14:00:18 CDT CPT-OV Office Visit 16:10:28 CDT CPT-JTINJ Asp/Joint Injection 09:03:57 CDT CPT-Cryo Cryotherapy 09:35:49 PIPE PRODUCTION WORKER CPT-JTINJ Asp/Joint Injection 09:34:45 PIPE PRODUCTION WORKER CPT-J2930 Solu Medrol 125 mg (Methyl Prednisolone Sodium Succinate) 20:37:27 CDT CPT-42618 Abx/Therapy Injection 20:37:27 CDT CPT-69720 Port a cath flush 08:15:51 CDT CPT-66208 Port a cath flush 09:54:16 CDT CPT-55373 Port a cath flush 09:38:02 CDT CPT-88736 Port a cath flush 11:00:27 PIPE PRODUCTION WORKER
--- OUTSIDE RECORDS SUMMARY | 2017-12-28 23:43 | XMS REPORT | Clinical Summary ---
Author Author Admin, QIE Organization 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 Harinder Hernadnez DO Unspecified late effects of cerebrovascular disease [...] Raynaud's syndrome Edema leg 782.3 Active Harinder eHrnandez DO Edema Tendonitis 726.90 Active Harinder Hernandez [...] Generic Name NDC Status Provider Patient Instruction NITROSTAT 0.4 MG SUBLINGUAL TABLET SUBLINGUAL 1 tab SL q5min PRN chest pain NITROGLYCERIN [id number] Active Meenu Alejo LPN Active THEOPHYLLINE ER 300 MG ORAL TABLET EXTENDED RELEASE 12 HOUR 1 po BID THEOPHYLLINE 55856828922 Active Kortney Mccain Active POTASSIUM CHLORIDE ER 20 MEQ ORAL TABLET EXTENDED RELEASE 1 po q day POTASSIUM CHLORIDE 52615424859 Active Kortney Mccain Active POTASSIUM CHLORIDE 20 MEQ ORAL PACKET 1 tab po q day POTASSIUM CHLORIDE 77294448768 No Longer Active Kortney Mccain Active POTASSIUM CHLORIDE ER 10 MEQ ORAL CAPSULE EXTENDED RELEASE 1 capsule BID 2016 POTASSIUM CHLORIDE 15635515018 No Longer Active Kortney Mccain Active LASIX 20 MG ORAL TABLET 1 tablet by mouth every morning FUROSEMIDE 00727221785 No Longer Active Kortney Mccain Active SPIRONOLACTONE 25 MG ORAL TABLET 1 tablet by mouth daily SPIRONOLACTONE 07491721459 Active Kortney Mccain Active FLUOXETINE HCL 10 MG ORAL CAPSULE 1 po qd for depression/anxiety FLUOXETINE HCL 20633082341 Active Harinder Hernandez DO Active VOLTAREN 1 % TRANSDERMAL GEL apply q 6-8 hour to left arm as needed for pain DICLOFENAC SODIUM 41312471828 Active Kortney Mccain Active ALBUTEROL SULFATE (2.5 MG/3ML) 0.083% INHALATION NEBULIZATION SOLUTION 1 vial neb q 4hrs for severe asthma. imperative to have this agent ALBUTEROL SULFATE 56975418383 Active Ciera Pimentel Active NIFEDIAC CC 30 MG ORAL TABLET EXTENDED RELEASE 24 HOUR 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 NIFEDIPINE 49047290294 Active Kortney Mccain Active AMLODIPINE BESYLATE 5 MG ORAL TABLET 1 tablet by mouth daily 2016 AMLODIPINE BESYLATE 82464751014 No Longer Active Harinder Hernandez DO Active TOPAMAX 25 MG ORAL TABLET 1 tab po BID TOPIRAMATE 21137017524 Active Kortney Mccain Active FLUTICASONE PROPIONATE 50 MCG/ACT NASAL SUSPENSION 2 sprays per nostril daily PRN Allergies FLUTICASONE PROPIONATE 70332826499 Active Kortney Mccain Active NIFEDIPINE ER 30 MG ORAL TABLET EXTENDED RELEASE 24 HOUR 1 daily NIFEDIPINE 51442357948 No Longer Active Harinder Hernandez DO Active FLOVENT HFA 110 MCG/ACT INHALATION AEROSOL 2 puffs inhaled b.i.d. FLUTICASONE PROPIONATE HFA 20741134321 Active Harinder Hernandez DO Active EPIPEN 2-BRUNA 0.3 MG/0.3ML INJECTION SOLUTION AUTO-INJECTOR 1 INJ NEEDED EPINEPHRINE 69323577397 Active Kortney Mccain Active PREDNISONE 20 MG ORAL TABLET 1 tab twice daily for 3 day, then one daily for three days PREDNISONE 67454463492 No Longer Active Harinder Hernandez DO Active PREDNISONE 20 MG ORAL TABLET 1 tablet twice daily for 2 days, then 1 tablet once daily for 2 days PREDNISONE 51580076483 No Longer Active Harinder Hernandez DO Active ASMANEX 120 METERED DOSES 220 MCG/INH INHALATION AEROSOL POWDER BREATH ACTIVATED 2 puffs orally twice daily MOMETASONE FUROATE 34969021227 Active Jeri Sosa LPN Active TOPIRAMATE 25 MG ORAL TABLET 1 tab po BID TOPIRAMATE 52711605761 No Longer Active Nettie Newberry APRN Active AMLODIPINE BESYLATE 5 MG ORAL TABLET Take 1 tab po daily AMLODIPINE BESYLATE 41603306209 No Longer Active Nettie Newberry APRN Active MECLIZINE HCL 25 MG ORAL TABLET 1 tablet three times daily for 3 days, then 1/ 2 tab three times daily for 3 days. MECLIZINE HCL 26721503726 No Longer Active Nettie Newberry APRN Active AMITRIPTYLINE HCL 25 MG ORAL TABLET 1 q hs prn AMITRIPTYLINE HCL 58260295675 No Longer Active Nettie Newberry APRN Active DILAUDID 2 MG ORAL TABLET Take 1/2 tab po every 4 hours as needed for pain HYDROMORPHONE HCL 01674853955 No Longer Active Nettie Newberry APRN Active CLOPIDOGREL BISULFATE 75 MG ORAL TABLET 1 tab by mouth once daily CLOPIDOGREL BISULFATE 78357702880 Active Meenu Alejo LPN Active ATORVASTATIN CALCIUM 10 MG ORAL TABLET 1 at bedtime ATORVASTATIN CALCIUM 23746166782 Active Kortney Mccain Active LOVASTATIN 40 MG ORAL TABLET Take 1 tab po every hs LOVASTATIN 05458929187 No Longer Active Harinder Hernandez DO Active PREDNISONE 20 MG ORAL TABLET 2 tabs daily for 4 days, 1 tab daily for 4 days, 1/2 tab daily for 4 days PREDNISONE 03624756553 No Longer Active Harinder Hernandez DO Active LEVAQUIN 500 MG ORAL TABLET Take 1 tab po daily x 8 days LEVOFLOXACIN 92745153662 No Longer Active Harinder Hernandez DO Active VENTOLIN HFA 108 (90 Base) MCG/ACT INHALATION AEROSOL SOLUTION 2 -4 puffs four times a day PRN ALBUTEROL SULFATE 51796801787 No Longer Active Jeri Sosa LPN Active ACEBUTOLOL HCL 200 MG ORAL CAPSULE 1 cap in the morning and 2 caps in the evening ACEBUTOLOL HCL 25954416948 No Longer Active Harinder Hernandez DO Active CEFDINIR 300 MG ORAL CAPSULE take 1 cap po bid x 10 days CEFDINIR 71398851370 No Longer Active Harinder Hernandez DO Active LOVASTATIN 40 MG ORAL TABLET 1 pill by mouth nightly for cholesterol LOVASTATIN 14936385874 No Longer Active Nettie Newberry APRN Active NITROSTAT 0.4 MG SUBLINGUAL TABLET SUBLINGUAL 1 tab under tongueas needed for chest pain ( may take 3 total, 5 min apart, then call 911) NITROGLYCERIN 32015135812 No Longer Active Nettie Newberry APRN Active POTASSIUM CHLORIDE ER 10 MEQ ORAL CAPSULE EXTENDED RELEASE 1 capsule by mouth daily POTASSIUM CHLORIDE 92450615660 No Longer Active Nettie Newberry APRN Active TESSALON PERLES 100 MG ORAL CAPSULE 1 to 2 tablets by mouth 3 times daily as needed for cough BENZONATATE 13563148051 No Longer Active Nettie Newberry APRN Active PREDNISONE 20 MG ORAL TABLET 2 po qd x 5 days PREDNISONE 12926095948 No Longer Active Jae Morgan MD Active AZITHROMYCIN 250 MG ORAL TABLET 2 po qd x 1 day, then 1 po qd x 4 days 12/30 AZITHROMYCIN 43197606109 No Longer Active Jae Morgan MD Active PREDNISONE 20 MG ORAL TABLET 1 tab twice daily for 3 day, then one daily for three days PREDNISONE 47533148065 No Longer Active Jae Morgan MD Active SINGULAIR 10 MG ORAL TABLET 1 pill by mouth every evening for breathing. 2014 MONTELUKAST SODIUM 71672040501 Active Meenu Alejo LPN Active TYLENOL 325 MG ORAL TABLET 3 by mouth q4h as needed ACETAMINOPHEN 80178173173 Active Harinder Hernandez DO Active POTASSIUM CHLORIDE ER 10 MEQ ORAL TABLET EXTENDED RELEASE take 1 tab po daily POTASSIUM CHLORIDE 18024083467 No Longer Active Harinder Hernandez DO Active PREDNISONE 20 MG ORAL TABLET 1 TID x 2 days, then 1 BID x 3 days, then 1 Daily x 3 days, then stop PREDNISONE 90498760143 No Longer Active John Montemayor APRN Active LEVAQUIN 500 MG ORAL TABLET 1 tablet by mouth daily LEVOFLOXACIN 49313165031 No Longer Active John Montemayor APRN Active NEURONTIN 300 MG ORAL CAPSULE 1 cap by mouth three times daily for restless leg GABAPENTIN 87977672630 No Longer Active Hrainder Hernandez DO Active BENZONATATE 100 MG ORAL CAPSULE 1 cap po TID PRN BENZONATATE 29255130484 No Longer Active Harinder Hernandez DO Active MONTELUKAST SODIUM 10 MG ORAL TABLET 1 tab po in the evening 2014 MONTELUKAST SODIUM 24890010774 No Longer Active Harinder Hernandez DO Active MUPIROCIN 2 % EXTERNAL OINTMENT apply to affected area BID x 14 days MUPIROCIN 11846220996 No Longer Active Harinder Hernandez DO Active TYLENOL EXTRA STRENGTH 500 MG ORAL TABLET as needed ACETAMINOPHEN 26370925855 No Longer Active Harinder Hernandez DO Active PREDNISONE 10 MG ORAL TABLET 1 tab po daily PREDNISONE 93230266348 No Longer Active Harinder Hernandez DO Active PREDNISONE 20 MG ORAL TABLET 2 tabs daily for 4 days, 1 tab daily for 4 days, 1/2 tab daily for 4 days PREDNISONE 94365700065 No Longer Active Harinder Hernandez DO Active AZITHROMYCIN 250 MG ORAL TABLET 2 po qd x 1 day, then 1 po qd x 4 days 04/06 AZITHROMYCIN 66307996010 No Longer Active Harinder Hernandez DO Active PREDNISONE 20 MG ORAL TABLET 3 tabs today, then 1 tab twice daily for 3 day, then one daily for three days PREDNISONE 07644999167 No Longer Active Harinder Hernandez DO Active NIFEDIAC CC 30 MG ORAL TABLET EXTENDED RELEASE 24 HOUR 1 tablet daily for raynaud's syndrome NIFEDIPINE 61820142799 No Longer Active Tawnya Pardo MA Active AMBIEN 10 MG ORAL TABLET 1/2 tab by mouth at bedtime as needed for sleep 2013 ZOLPIDEM TARTRATE 91470863843 Active Meenu Alejo LPN Active CLONAZEPAM 1 MG ORAL TABLET 1 tablet at bedtime for insomnia and restless legs CLONAZEPAM 69560622381 Active Harinder Hernandez DO Active CLONAZEPAM 0.5 MG ORAL TABLET 1 tab po daily CLONAZEPAM 97441154180 No Longer Active Harinder Hernandez DO Active PREDNISONE 10 MG ORAL TABLET 1 tablet daily for COPD PREDNISONE 76886577885 Active Kortney Mccain Active PROAIR HFA 108 (90 Base) MCG/ACT INHALATION AEROSOL SOLUTION 2 puffs four times a day as needed ALBUTEROL SULFATE 13184519019 Active Harinder Hernandez DO Active FLOVENT HFA 110 MCG/ACT INHALATION AEROSOL 2 puffs inhaled b.i.d. FLUTICASONE PROPIONATE HFA 33930794679 Active Kortney Mccain Active ACIPHEX 20 MG ORAL TABLET DELAYED RELEASE 1 tab po daily RABEPRAZOLE SODIUM 10909381247 Active Kaylah Newberry Active CLONAZEPAM 0.5 MG ORAL TABLET 1 tab po daily CLONAZEPAM 0.5 MG ORAL TABLET 297550 CLONAZEPAM Inactive PREDNISONE 20 MG ORAL TABLET 3 tabs today, then 1 tab twice daily for 3 day, then one daily for three days PREDNISONE 20 MG ORAL TABLET 999609 PREDNISONE Inactive PREDNISONE 20 MG ORAL TABLET 2 tabs daily for 4 days, 1 tab daily for 4 days, 1/2 tab daily for 4 days PREDNISONE 20 MG ORAL TABLET 982928 PREDNISONE Inactive PREDNISONE 10 MG ORAL TABLET 1 tab po daily PREDNISONE 10 MG ORAL TABLET 863923 PREDNISONE Inactive TYLENOL EXTRA STRENGTH 500 MG ORAL TABLET as needed TYLENOL EXTRA STRENGTH 500 MG ORAL TABLET 659365 ACETAMINOPHEN Inactive MUPIROCIN 2 % EXTERNAL OINTMENT apply to affected area BID x 14 days MUPIROCIN 2 % EXTERNAL OINTMENT 268230 MUPIROCIN Inactive MONTELUKAST SODIUM 10 MG ORAL TABLET 1 tab po in the evening 2014 MONTELUKAST SODIUM 10 MG ORAL TABLET 417545 MONTELUKAST SODIUM Inactive BENZONATATE 100 MG ORAL CAPSULE 1 cap po TID PRN BENZONATATE 100 MG ORAL CAPSULE 270782 BENZONATATE Inactive NEURONTIN 300 MG ORAL CAPSULE 1 cap by mouth three times daily for restless leg NEURONTIN 300 MG ORAL CAPSULE 178323 GABAPENTIN Inactive LEVAQUIN 500 MG ORAL TABLET 1 tablet by mouth daily LEVAQUIN 500 MG ORAL TABLET 420760 LEVOFLOXACIN Inactive PREDNISONE 20 MG ORAL TABLET 1 TID x 2 days, then 1 BID x 3 days, then 1 Daily x 3 days, then stop PREDNISONE 20 MG ORAL TABLET 318033 PREDNISONE Inactive POTASSIUM CHLORIDE ER 10 MEQ ORAL TABLET EXTENDED RELEASE take 1 tab po daily POTASSIUM CHLORIDE ER 10 MEQ ORAL TABLET EXTENDED RELEASE POTASSIUM CHLORIDE Inactive PREDNISONE 20 MG ORAL TABLET 1 tab twice daily for 3 day, then one daily for three days PREDNISONE 20 MG ORAL TABLET 644660 PREDNISONE Inactive TESSALON PERLES 100 MG ORAL CAPSULE 1 to 2 tablets by mouth 3 times daily as needed for cough TESSALON PERLES 100 MG ORAL CAPSULE 111013 BENZONATATE Inactive POTASSIUM CHLORIDE ER 10 MEQ ORAL CAPSULE EXTENDED RELEASE 1 capsule by mouth daily POTASSIUM CHLORIDE ER 10 MEQ ORAL CAPSULE EXTENDED RELEASE POTASSIUM CHLORIDE Inactive NITROSTAT 0.4 MG SUBLINGUAL TABLET SUBLINGUAL 1 tab under tongueas needed for chest pain ( may take 3 total, 5 min apart, then call 911) NITROSTAT 0.4 MG SUBLINGUAL TABLET SUBLINGUAL 893129 NITROGLYCERIN Inactive LOVASTATIN 40 MG ORAL TABLET 1 pill by mouth nightly for cholesterol LOVASTATIN 40 MG ORAL TABLET 623975 LOVASTATIN Inactive CEFDINIR 300 MG ORAL CAPSULE take 1 cap po bid x 10 days CEFDINIR 300 MG ORAL CAPSULE 562381 CEFDINIR Inactive ACEBUTOLOL HCL 200 MG ORAL CAPSULE 1 cap in the morning and 2 caps in the evening ACEBUTOLOL HCL 200 MG ORAL CAPSULE 806412 ACEBUTOLOL HCL Inactive VENTOLIN HFA 108 (90 Base) MCG/ACT INHALATION AEROSOL SOLUTION 2 -4 puffs four times a day PRN VENTOLIN HFA 108 (90 Base) MCG/ ACT INHALATION AEROSOL SOLUTION ALBUTEROL SULFATE Inactive LEVAQUIN 500 MG ORAL TABLET Take 1 tab po daily x 8 days LEVAQUIN 500 MG ORAL TABLET 457939 LEVOFLOXACIN Inactive PREDNISONE 20 MG ORAL TABLET 2 tabs daily for 4 days, 1 tab daily for 4 days, 1/2 tab daily for 4 days PREDNISONE 20 MG ORAL TABLET 380051 PREDNISONE Inactive LOVASTATIN 40 MG ORAL TABLET Take 1 tab po every hs LOVASTATIN 40 MG ORAL TABLET 350526 LOVASTATIN Inactive DILAUDID 2 MG ORAL TABLET Take 1/2 tab po every 4 hours as needed for pain DILAUDID 2 MG ORAL TABLET 639974 HYDROMORPHONE HCL Inactive AMITRIPTYLINE HCL 25 MG ORAL TABLET 1 q hs prn AMITRIPTYLINE HCL 25 MG ORAL TABLET 263867 AMITRIPTYLINE HCL Inactive MECLIZINE HCL 25 MG ORAL TABLET 1 tablet three times daily for 3 days, then 1/ 2 tab three times daily for 3 days. MECLIZINE HCL 25 MG ORAL TABLET 021934 MECLIZINE HCL Inactive AMLODIPINE BESYLATE 5 MG ORAL TABLET Take 1 tab po daily AMLODIPINE BESYLATE 5 MG ORAL TABLET 223957 AMLODIPINE BESYLATE Inactive TOPIRAMATE 25 MG ORAL TABLET 1 tab po BID TOPIRAMATE 25 MG ORAL TABLET 328130 TOPIRAMATE Inactive PREDNISONE 20 MG ORAL TABLET 1 tablet twice daily for 2 days, then 1 tablet once daily for 2 days PREDNISONE 20 MG ORAL TABLET 832981 PREDNISONE Inactive PREDNISONE 20 MG ORAL TABLET 1 tab twice daily for 3 day, then one daily for three days PREDNISONE 20 MG ORAL TABLET 851695 PREDNISONE Inactive NIFEDIPINE ER 30 MG ORAL TABLET EXTENDED RELEASE 24 HOUR 1 daily NIFEDIPINE ER 30 MG ORAL TABLET EXTENDED RELEASE 24 HOUR NIFEDIPINE Inactive AMLODIPINE BESYLATE 5 MG ORAL TABLET 1 tablet by mouth daily 2016 AMLODIPINE BESYLATE 5 MG ORAL TABLET 466777 AMLODIPINE BESYLATE Inactive LASIX 20 MG ORAL TABLET 1 tablet by mouth every morning LASIX 20 MG ORAL TABLET 749403 FUROSEMIDE Inactive POTASSIUM CHLORIDE ER 10 MEQ ORAL CAPSULE EXTENDED RELEASE 1 capsule BID 2016 POTASSIUM CHLORIDE ER 10 MEQ ORAL CAPSULE EXTENDED RELEASE POTASSIUM CHLORIDE Inactive POTASSIUM CHLORIDE 20 MEQ ORAL PACKET 1 tab po q day POTASSIUM CHLORIDE 20 MEQ ORAL PACKET 0452336 POTASSIUM CHLORIDE Inactive AZITHROMYCIN 250 MG ORAL TABLET 2 po qd x 1 day, then 1 po qd x 4 days 04/06 AZITHROMYCIN 250 MG ORAL TABLET 826885 AZITHROMYCIN Inactive AZITHROMYCIN 250 MG ORAL TABLET 2 po qd x 1 day, then 1 po qd x 4 days 12/30 AZITHROMYCIN 250 MG ORAL TABLET 708274 AZITHROMYCIN Inactive PREDNISONE 20 MG ORAL TABLET 2 po qd x 5 days PREDNISONE 20 MG ORAL TABLET 429806 PREDNISONE Inactive Vital Signs Date Name Value [...] Panel - Chemistry sodium, serum 140 mmol/L 994-075 7187/07/13 potassium, serum 3.2 mmol/L 3.5-5.2 chloride, serum 103 mmol/L 98-107 carbon dioxide, venous blood 26.9 mmol/L 21.0-32.0 blood glucose 93 mg/dL 65-110 calcium, serum 9.2 mg/dL 8.5-10.1 urea nitrogen, blood 13 mg/dL 7-18 creatinine, serum 0.84 mg/dL 0.60-1.30 sodium, serum 140 mmol/L 108-059 4652/08/21 potassium, serum 3.8 mmol/L 3.5-5.2 chloride, serum [...] ... - Chemistry sodium, serum 141 mmol/L 068-542 3982/08/07 carbon dioxide, venous blood 34.0 mmol/L 21.0-32.0 [...] 15-37 alanine aminotransferase (SGPT), serum 23 U/L 12-78 bilirubin, serum, total 1.40 mg/dL 0.00-1.00 cholesterol, serum 192 mg/dL 887-902 2123/10/19 triglyceride, serum, fasting 71 mg/dL 30-200 HDL cholesterol, serum 72 mg/dL 32-60 LDL cholesterol, serum 106 mg/dL 0-130 Lab Report: THEOPHYLLINE - Toxicology theophylline level, serum 3.1 ug/mL 10.0-20.0 Encounters Code Encounter Date Provider Facility CPT-35316 Level 4 Est. Patient 14:45:25 CDT Harinder Cr [facility] CPT-09215 Level 4 Est. Patient 09:15:13 CDT Harinder Cr [facility] CPT-07696 Level 3 Est. Patient 11:51:58 CDT Harinder Cr [facility] CPT-78003 Level 3 Est. Patient 11:30:05 CDT Harinder Cr [facility] CPT-51253 Level 4 Est. Patient 10:19:23 CDT Harinder Cr [facility] CPT-88928 Level 3 Est. Patient 09:58:58 CDT Harinder Cr [facility] CPT-71650 Level 3 Est. Patient 12:37:21 CDT Harinder Cr [facility] CPT-01434 Level 3 Est. Patient 18:37:17 CDT Harinder Cr [facility] CPT-25885 Level 4 Est. Patient 11:15:54 CDT Nettie Newberry APRN [facility] CPT-64542 Level 3 Est. Patient 16:42:24 CDT Harinder Hernandez [facility] CPT-23429 Level 3 Est. Patient 15:03:36 CDT Harinder Hernandez [facility] CPT-63898 Level 3 Est. Patient 15:03:20 CDT Harinder Hernandez [facility] CPT-91315 Level 3 Est. Patient 12:14:34 CDT Harinder Hernandez [facility] CPT-03246 Level 3 Est. Patient 13:47:15 CDT Harinder Hernandez [facility] CPT-52501 Level 3 Est. Patient 14:08:24 CDT Harinder Hernandez [facility] CPT-85263 Level 3 Est. Patient 10:07:15 CDT Harinder Hernandez [facility] CPT-25684 Level 3 Est. Patient 10:06:59 CDT Harinder Hernandez [facility] CPT-54699 Level 3 Est. Patient 15:53:29 CDT Jae Morgan MD [facility] CPT-98325 Level 3 Est. Patient 17:19:04 CDT Harinder Hernandez [facility] CPT-58983 Level 3 Est. Patient 11:13:01 CDT Harinder Hernandez [facility] CPT-03000 Level 3 Est. Patient 09:03:58 CDT Harinder Hernandez [facility] CPT-37812 Level 3 Est. Patient 14:46:45 BLOOD BANK CALENDAR CONTROL CLERK Harinder Cr David [facility] CPT-33709 Level 3 Est. Patient 09:35:49 BLOOD BANK CALENDAR CONTROL CLERK Harinder Hernandez [facility] CPT-21888 Level 3 Est. Patient 09:29:37 BLOOD BANK CALENDAR CONTROL CLERK Harinder Hernandez [facility] CPT-93055 Level 3 Est. Patient 15:51:07 CDT Harinder Hernandez [facility] CPT-04132 Level 3 Est. Patient 18:13:13 CDT Harinder Hernandez [facility] CPT-78156 Level 3 Est. Patient 10:44:19 CDT Harinder Hernandez [facility] CPT-70420 Level 4 Est. Patient 10:07:19 BLOOD BANK CALENDAR CONTROL CLERK Harinder Hernandez [facility] CPT-81801 Level 3 Est. Patient 15:59:32 BLOOD BANK CALENDAR CONTROL CLERK Harinder Cr [facility] Procedures Code Procedure Name Date Entry Date Standard Description CPT-62148 Abd compl w upright - XRAY USE ONLY 14:48:09 CDT 02/18 CPT-07560 Port a cath flush 13:46:05 CDT CPT-83643 Hip, complete, 2-3 views - XRAY USE ONLY 10:28:40 CDT CPT-27010 BMP - LAB USE ONLY 16:45:09 BLOOD BANK CALENDAR CONTROL CLERK CPT-96278 Port a cath flush 12:00:13 BLOOD BANK CALENDAR CONTROL CLERK CPT-TCMM Transitional Care Mgmt-Moderate 11:20:16 BLOOD BANK CALENDAR CONTROL CLERK CPT-53866 First Vx - Ix admin for Medicare patients 17:35:15 CDT CPT-73146 Fluzone Preservative Free Intramuscular Suspension 17:35 :15 CDT CPT-35964 Microalbumin - LAB USE ONLY 11:52:05 CDT CPT-TCMM Transitional Care Mgmt-Moderate 11:33:57 CDT CPT-36189 No Charge Offi Visit 14:11:29 CDT CPT-93675 Magnesium - LAB USE ONLY 10:45:44 CDT CPT-45948 Lipid - LAB USE ONLY 10:45:44 CDT CPT-69352 CBC - LAB USE ONLY 10:45:44 CDT CPT-13426 Venipuncture Draw Fee 10:45:43 CDT CPT-86178 Venipuncture Draw Fee 18:21:27 CDT CPT-JTINJ Asp/Joint Injection 18:38:04 CDT CPT-46428 Immunization Each Additional Inj 17:38:04 CDT CPT-47943 Immunization Single Admin 17:38:04 CDT CPT-49495 Prevnar 13 17:38:04 CDT CPT-57905 Fluzone Quadrivalent preservative free (>=3yrs.) 17:38: 04 CDT CPT-05720 No Charge Offi Visit 11:14:03 CDT CPT-78100 Chest 2V Frontal and Lat 14:00:18 CDT CPT-OV Office Visit 16:10:28 CDT CPT-JTINJ Asp/Joint Injection 09:03:57 CDT CPT-Cryo Cryotherapy 09:35:49 BLOOD BANK CALENDAR CONTROL CLERK CPT-JTINJ Asp/Joint Injection 09:34:45 BLOOD BANK CALENDAR CONTROL CLERK CPT-J2930 Solu Medrol 125 mg (Methyl Prednisolone Sodium Succinate) 20:37:27 CDT CPT-29258 Abx/Therapy Injection 20:37:27 CDT CPT-40579 Port a cath flush 08:15:51 CDT CPT-37279 Port a cath flush 09:54:16 CDT CPT-86040 Port a cath flush 09:38:02 CDT CPT-83721 Port a cath flush 11:00:27 BLOOD BANK CALENDAR CONTROL CLERK
--- NOTE | 2017-12-28 23:44 | ED Respiratory ---
General Stated Complaint: SOA Source: patient, other Exam Limitations: no limitations History of Present Illness Date Seen by Provider: Dec 28, 2017 Time Seen by Provider: 23:35 Initial Comments The patient presents to the ER by private conveyance with a chief complaint that about 10 minutes prior to arrival she started having severe shortness of breath. He could not find the hose for her nebulizer so they brought her to the ER. She routinely uses Singulair and albuterol at home. She has a history of asthma, COPD. She does not have any heart conditions. She does smoke cigarettes. She is having nausea but no chest pain just shortness of breath, coughing and wheezing. She is not having any fevers, chills. 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 She takes 10 mg prednisone daily. The patient's friend explains that the patient does not actually have TIAs according to Dr. 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 This results in a stutter. She does not stutter normally. She's having no facial droop, slurred speech, weakness of any extremity. Allergies and Home Medications Allergies Coded Allergies: vancomycin (Verified Allergy, Severe, ANAPHYLAXIS, 10/18/15) Penicillins (Unverified Allergy, Unknown, 10/18/15) Sulfa (Sulfonamide Antibiotics) (Unverified Allergy, Unknown, 10/18/15) aspirin (Unverified Allergy, Unknown, 10/18/15) baclofen (Unverified Allergy, Unknown, 10/18/15) codeine (Unverified Allergy, Unknown, 10/18/15) diazepam (Unverified Allergy, Unknown, 10/18/15) diphenhydramine (Unverified Allergy, Unknown, 10/18/15) doxycycline (Unverified Allergy, Unknown, 10/18/15) hydrocodone (Unverified Allergy, Unknown, 10/18/15) hydrocortisone (Unverified Allergy, Unknown, 10/18/15) ibuprofen (Unverified Allergy, Unknown, 10/18/15) ketorolac (Unverified Allergy, Unknown, 10/18/15) latex (Unverified Allergy, Unknown, 10/18/15) meperidine HCl (Unverified Allergy, Unknown, 10/18/15) morphine (Unverified Allergy, Unknown, 10/18/15) moxifloxacin HCl (Unverified Allergy, Unknown, 10/18/15) pregabalin (Unverified Allergy, Unknown, 10/18/15) promethazine (Unverified Allergy, Unknown, 10/18/15) propoxyphene napsylate (Unverified Allergy, Unknown, 10/18/15) ropinirole (Unverified Allergy, Unknown, 05/03/14) tramadol (Unverified Allergy, Unknown, 10/18/15) Home Medications Albuterol Sulfate 8.5 Gm Hfa.aer.ad, 2 PUFF IH Q4H PRN for SHORTNESS OF BREATH, (Reported) Atorvastatin Calcium 10 Mg Tablet, 10 MG PO HS, (Reported) Clonazepam 1 Mg Tablet, 1 MG PO HS, (Reported) Clopidogrel Bisulfate 75 Mg Tablet, 75 MG PO DAILY, (Reported) Epinephrine 0.3 Mg/0.3 Ml Auto.injct, 0.3 MG IJ UD PRN for ALLERGIC REACTION , ( Reported) Montelukast Sodium 10 Mg Tablet, 10 MG PO HS, (Reported) Prednisone 10 Mg Tab, 10 MG PO DAILY, (Reported) Rabeprazole Sodium 20 Mg Tablet.dr, 20 MG PO DAILY, (Reported) Theophylline Anhydrous 400 Mg Tablet.er, 200 MG PO BID, (Reported) LAST FILLED #30 04-28-16 TAKES 1/2 OF A (400 MG) TABLET Patient Home Medication List Home Medication List Reviewed: Yes Review of Systems Constitutional: No chills, No diaphoresis EENTM: No hearing loss, No ear pain Respiratory: No cough, No short of breath Cardiovascular: No chest pain, No edema, No palpitations Gastrointestinal: No abdominal pain, No constipation, No diarrhea; nausea; No vomiting Genitourinary: No discharge, No dysuria : No Musculoskeletal: No back pain, No joint pain Skin: No pruritus, No rash Psychiatric/Neurological: Denies Headache, Denies Numbness Past Wldshaw-Sydjpy-Ysriiq Hx Patient Social History Recreational Drug Use: No Smoking Status: Current Everyday Smoker Type Used: Cigarettes Recent Hopitalizations: Yes (sepsis in 05/30) Immunizations Up To Date Tetanus Booster (TDap): Less than 5yrs PED Vaccines UTD: Yes Date of Pneumonia Vaccine: Apr 14, 2015 Date of Influenza Vaccine: Apr 14, 2015 Seasonal Allergies Seasonal Allergies: Yes Past Medical History Appendectomy, Gallbladder, Hysterectomy, Nose Asthma, COPD, Emphysema Currently Using CPAP: No Currently Using BIPAP: No Heart Attack, High Cholesterol, Irregular Heartbeat, Palpitations Neuropathy, Stroke, TIA Reproductive Disorders: No [employer] History: Hysterectomy Sexually Transmitted Disease: No HIV/AIDS: No Gastroesophageal Reflux, Ulcer, Gall Bladder Disease Arthritis Loss of Vision: Denies Skin, Ovarian Anxiety Adverse Reaction/Blood Tranf: No Family Medical History Completed stroke 19 MOTHER G8 BROTHER Diabetes mellitus G8 BROTHER FH: breast cancer 19 MOTHER FH: cancer G8 SISTER FH: emphysema 19 FATHER FH: ovarian cancer G8 SISTER FH: prostate cancer 19 FATHER Hypertension 19 MOTHER Myocardial infarction 19 MOTHER Parkinson's disease Prostate cancer 19 FATHER No Pertinent Family Hx Physical Exam Vital Signs Vital Signs - First Documented 12/28/17 23:34 Temp 97.1 Pulse 86 Resp 20 B/P (MAP) 135/81 (99) Pulse Ox 98 O2 Delivery Room Air Capillary Refill : General Appearance: WD/WN, moderate distress Eyes: Bilateral Eye Normal Inspection, Bilateral Eye PERRL, Bilateral Eye EOMI HEENT: PERRL/EOMI, normal ENT inspection, TMs normal, pharynx normal Neck: non-tender, full range of motion, supple, normal inspection Respiratory: chest non-tender, respiratory distress (moderate), decreased breath sounds, accessory muscle use (mild to moderate); No crackles, No rhonchi ; stridor, wheezing, expiration Cardiovascular: normal peripheral pulses, regular rate, rhythm, no edema, no murmur Gastrointestinal: normal bowel sounds, non tender, soft Extremities: non-tender, normal inspection, normal capillary refill Neurologic/Psychiatric: alert, oriented x 3 Skin: normal color, warm/dry Progress/Results/Core Measures Suspected Sepsis SIRS Temperature: Pulse: Respiratory Rate: Laboratory Tests 12/28/17 23:50: White Blood Count 11.6H Blood Pressure / Mean: Laboratory Tests 12/28/17 23:50: Creatinine 0.94, Platelet Count 249, Total Bilirubin 0.3 Results/Orders Lab Results Laboratory Tests Test 12/28/17 23:50 12/29/17 00:15 Range/Units White Blood Count 11.6 H 4.3-11.0 10^3/uL Red Blood Count 3.69 L 4.35-5.85 10^6/uL Hemoglobin 12.1 11.5-16.0 G/DL Hematocrit 34 L 35-52 % Mean Corpuscular Volume 93 80-99 FL Mean Corpuscular Hemoglobin 33 25-34 PG Mean Corpuscular Hemoglobin Concent 35 32-36 G/DL Red Cell Distribution Width 13.4 10.0-14.5 % Platelet Count 249 130-400 10^3/uL Mean Platelet Volume 9.7 7.4-10.4 FL Neutrophils (%) (Auto) 58 42-75 % Lymphocytes (%) (Auto) 33 12-44 % Monocytes (%) (Auto) 7 0-12 % Eosinophils (%) (Auto) 2 0-10 % Basophils (%) (Auto) 0 0-10 % Neutrophils # (Auto) 6.7 1.8-7.8 X 10^3 Lymphocytes # (Auto) 3.8 1.0-4.0 X 10^3 Monocytes # (Auto) 0.8 0.0-1.0 X 10^3 Eosinophils # (Auto) 0.2 0.0-0.3 10^3/uL Basophils # (Auto) 0.0 0.0-0.1 10^3/uL Sodium Level 142 135-145 MMOL/L Potassium Level 3.3 L 3.6-5.0 MMOL/L Chloride Level 108 H 98-107 MMOL/L Carbon Dioxide Level 23 21-32 MMOL/L Anion Gap 11 5-14 MMOL/L Blood Urea Nitrogen 14 7-18 MG/DL Creatinine 0.94 0.60-1.30 MG/DL Estimat Glomerular Filtration Rate 60 BUN/Creatinine Ratio 15 Glucose Level 100 70-105 MG/DL Calcium Level 9.3 8.5-10.1 MG/DL Total Bilirubin 0.3 0.1-1.0 MG/DL Aspartate Amino Transf (AST/SGOT) 17 5-34 U/L Alanine Aminotransferase (ALT/SGPT) 11 0-55 U/L Alkaline Phosphatase 106 40-136 U/L Total Protein 7.2 6.4-8.2 GM/DL Albumin 4.3 3.2-4.5 GM/DL Blood Gas Puncture Site RIGHT RADIAL Blood Gas Patient Temperature 97.1 Arterial Blood pH 7.36 L 7.37-7.43 Arterial Blood Partial Pressure CO2 43 35-45 MMHG Arterial Blood Partial Pressure O2 239 H 79-93 MMHG Arterial Blood HCO3 24 23-27 MMOL/L Arterial Blood Total CO2 25.0 21.0-31.0 MMOL/L Arterial Blood Oxygen Saturation 100 94-100 % Arterial Blood Base Excess -1.3 -2.5-2.5 MMOL/L Dante Test YES-POS Blood Gas Ventilator Setting NO Blood Gas Inspired Oxygen 8L My Orders Orders - LAURENT GILLETTE Cbc With Automated Diff (12/28/17 23:36) Comprehensive Metabolic Panel (12/28/17 23:36) Albuterol/Ipra Inhalation Soln (Duoneb I (12/28/17 23:45) Saline Lock/Iv-Start (12/28/17 23:36) Ns Iv 1000 Ml (Sodium Chloride 0.9%) (12/28/17 23:36) Svn Small Volume Nebulizer (12/28/17 23:36) Ondansetron Injection (Zofran Injectio (12/28/17 23:45) Rt Epinephrine (Racemic Epinephrine 2.25 (12/29/17 00:00) Svn Small Volume Nebulizer (12/28/17 23:48) Methylprednisolone Sod Succ (Solu-Medrol (12/29/17 00:00) Rt Epinephrine (Racemic Epinephrine 2.25 (12/28/17 23:48) Albuterol Pre-Mix Nebs (Rt) (Proventil (12/29/17 08:00) Ipratropium 0.02% Neb Solution (Atrovent (12/29/17 00:00) Svn Small Volume Nebulizer (12/28/17 23:56) Ipratropium 0.02% Neb Solution (Atrovent (12/28/17 23:56) Albuterol Pre-Mix Nebs (Rt) (Proventil (12/28/17 23:56) Lorazepam Injection (Ativan Injection) (12/29/17 00:15) Epinephrine 1 Mg Injection (Adrenalin I (12/29/17 00:09) Epinephrine 1 Mg Injection (Adrenalin I (12/29/17 00:35) Epinephrine 1 Mg Injection (Adrenalin I (12/29/17 00:12) Lorazepam Injection (Ativan Injection) (12/29/17 00:12) Hydroxyzine Oral (Vistaril Capsule) (12/29/17 00:30) Ranitidine Injection (Zantac Injection) (12/29/17 00:30) Loratadine Tablet (Claritin Tablet) (12/29/17 00:30) Arterial Blood Gas (12/29/17 00:31) Chest 1 View, Ap/Pa Only (12/29/17 00:41) Medications Given in ED Current Medications Medications Dose Ordered Sig/Devon Route Start Time Stop Time Status Last Admin Dose Admin Albuterol/ Ipratropium 3 ml ONCE ONCE INH 12/28/17 23:45 12/28/17 23:46 DC 12/28/17 23:48 3 ML Epinephrine 0.5 ml STK-MED ONCE .ROUTE 12/28/17 23:48 12/28/17 23:50 DC 12/28/17 23:48 0.5 ML Epinephrine HCl 0.25 mg UD ONCE IV 12/29/17 00:35 12/29/17 00:36 DC 12/29/17 00:39 0.25 MG Hydroxyzine Pamoate 25 mg ONCE ONCE PO 12/29/17 00:30 12/29/17 00:31 DC 12/29/17 00:30 25 MG Ipratropium [place] 0.5 mg ONCE ONCE IH 12/29/17 00:00 12/29/17 00:01 DC 12/29/17 00:01 0.5 MG Loratadine 10 mg ONCE ONCE PO 12/29/17 00:30 12/29/17 00:31 DC 12/29/17 00:39 10 MG Lorazepam 1 mg ONCE ONCE IVP 12/29/17 00:15 12/29/17 00:16 DC 12/29/17 00:17 1 MG Methylprednisolone Sodium Succinate 125 mg ONCE ONCE IVP 12/29/17 00:00 12/29/17 00:01 DC 12/28/17 23:55 125 MG Vital Signs/I&O 12/28/17 12/28/17 12/29/17 12/29/17 23:34 23:48 00:01 00:01 Temp 97.1 Pulse 86 90 Resp 20 B/P (MAP) 135/81 (99) Pulse Ox 98 98 98 98 O2 Delivery Room Air Room Air Room Air FiO2 21 Capillary Refill : Progress Note #1: Time: 23:53 Progress Note Fairly acute onset of shortness of breath, wheezing and stridor in a patient with history of anaphylaxis for which she uses epinephrine but has not used any tonight. We'll give her a DuoNeb and epinephrine by nebulizer and reevaluated. We'll give her 125 mg Solu-Medrol and she'll probably need to stay in the hospital to get her more stabilized. Initially though her breath sounds are much improved with a single dose of DuoNeb so we'll give her an hour-long 15 mg albuterol and ipratropium bromide. Although azithromycin is not on the patient's allergy list she is claiming that causes her throat to close off. We'll hold off giving her azithromycin for his anti-inflammatory effects. She is not tachycardic right now. She's having quite a bit of anxiety so we'll go ahead and obtain an ABG to make sure she is oxygenating okay even though her sats are nearing 100% on room air and her heart rate is in the 70s. We'll also give her some Ativan. Progress Note #2: Time: 00:33 Progress Note Patient is rather anxious and reducing lots of upper respiratory wheezing/ stridorous sounds. Difficult to determine whether this is real stridor or not because the symptoms are inconsistent with her vital signs. We will obtain an ABG and go ahead and give her some IV epinephrine 0.01 mg/kg to combat in case it is stridor. However after leaving the room and noticed that listening from outside the room the patient does not make the stridorous sounds but continues making them as soon as I enter the room again. Her ABG does not reveal hypoxia, or significant acidosis. CO2 is only 42. Her allergy list is very fluid and changes as I talk to her and she appears to be allergic to everything including Benadryl. She states that everything on her allergy list including the Benadryl and hydrocortisone causes her throat to swell. However she has been on prednisone daily successfully for over a year. Diagnostic Imaging Diagonstic Imaging: Xray Plain Films/CT/US/NM/MRI: chest Comments No acute cardiopulmonary processes noted. COPD Departure Communication (Admissions) Time/Spoke to Admitting Phy: 01:40 Dr Walt: Discussed pt, labs, CXR and plan to admit for COPD exacerbation. Impression Primary Impression: Acute exacerbation of chronic obstructive pulmonary disease (COPD) Disposition: ADMITTED INPATIENT Condition: Improved Admissions Decision to Admit Reason: Admit from ER (General) Decision to Admit/Date: Dec 29, 2017 Time/Decision to Admit Time: 01:30 Departure-Patient Inst. Referrals: SAIGE WELCH DO (PCP/Family) Primary Care Physician LAURENT GILLETTE Dec 28, 2017 23:44
[2017-12-28] MEDS ORDERED: ONDANSETRON 4 MG/2 ML (SDV) Z0FRAN IVP ONE (23:45)
[2017-12-28] MEDS ORDERED: RT-ALBUTEROL/IPRATROPIUM 3 ML (DUONEB) VIAL INH ONE (23:45)
--- OUTSIDE RECORDS SUMMARY | 2017-12-28 23:45 | XMS REPORT | Clinical Summary ---
Author Author Admin, QIE Organization [facility] [employer] Address Unknown Phone Unavailable Allergies, Adverse Reactions, [...] cerebrovascular disease Diarrhea, chronic 787.91 Active Harinder Cr David DO Diarrhea Reflux, esophageal 530.81 Active Harinder Cr David DO Esophageal reflux Breast mass, right ICD-611.72 Inactive Harinder Hernandez DO Encounter for fitting and adjustment of vascular catheter ICD-V58.81 Inactive Harinder Cr David DO Back pain, lumbar ICD-724.2 Inactive Harinder Cr David DO Insomnia ICD-780.52 Inactive Harinder Cr David DO Sacroiliitis, right ICD-720.2 Inactive Harinder Cr David DO Biceps tendinitis, left ICD-726.12 Inactive Harinder Hernandez DO Nausea and vomiting ICD-787.01 Inactive Jae Morgan MD Diarrhea ICD-787.91 Inactive Jae Morgan MD Benign positional vertigo ICD-386.11 Inactive Harinder Hernandez DO Colon cancer screening ICD-V76.51 Inactive Harinder Cr David DO Screening for malignant neoplasm, colon ICD-V76.51 Inactive Harinder W David DO Pneumonia ICD-486 Inactive Harinder Hernandez DO Bacteremia ICD-790.7 Inactive Harinder Cr David DO 10/02 Clostridium difficile colitis ICD-008.45 Inactive Harinder Cr David DO Abdominal pain, right lower quadrant ICD-789.03 Inactive Harinder W David DO Needs vaccination for influenza ICD-V04.81 Inactive Harinder W David DO Need for prophylactic vaccination against streptococcus pneumoniae ( Pneumococcus) ICD-V03.82 Inactive Harinder W David DO Greater trochanteric bursitis, left ICD-726.5 Inactive Harinder Hernandez DO Medication List Medication Instructions Start Date Stop Date Generic Name NDC Status Provider Patient Instruction EPIPEN 2-BRUNA 0.3 MG/0.3ML INJ SOAJ 1 INJ NEEDED EPINEPHRINE 06726862431 Active Tawnya Pardo MA Active PREDNISONE 20 MG TAB 1 tab twice daily for 3 day, then one daily for three days PREDNISONE 26506795159 No Longer Active Harinder Hernandez DO Active PREDNISONE 20 MG TAB 1 tablet twice daily for 2 days, then 1 tablet once daily for 2 days PREDNISONE 72649256135 No Longer Active Harinder Hernandez DO Active ASMANEX 120 METERED DOSES 220 MCG/INH INH AEPB 2 puffs orally twice daily MOMETASONE FUROATE 49916536158 Active Jeri Sosa RPT,RMA Active NIFEDIPINE ER 30 MG ORAL [id number]-WMS 1 daily NIFEDIPINE 02546768726 Active Kaylah Newberry Active TOPIRAMATE 25 MG TABS 1 tab po BID TOPIRAMATE 15463831035 No Longer Active Nettie Newberry APRN Active AMLODIPINE BESYLATE 5 MG ORAL TABS Take 1 tab po daily AMLODIPINE BESYLATE 33706937483 No Longer Active Nettie Newberry APRN Active MECLIZINE HCL 25 MG TAB 1 tablet three times daily for 3 days, then 1/2 tab three times daily for 3 days. MECLIZINE HCL 20242104951 No Longer Active Nettie Newberry APRN Active AMITRIPTYLINE HCL 25 MG ORAL TABS 1 q hs prn AMITRIPTYLINE HCL 29347312355 No Longer Active Nettie Newberry APRN Active DILAUDID 2 MG ORAL TABS Take 1/2 tab po every 4 hours as needed for pain 2014 HYDROMORPHONE HCL 61859671780 No Longer Active Nettie Newberry APRN Active CLOPIDOGREL BISULFATE 75 MG ORAL TABS 1 tab by mouth once daily CLOPIDOGREL BISULFATE 07892325612 Active Tawnya Pardo MA Active ATORVASTATIN CALCIUM 10 MG ORAL TABS 1 at bedtime ATORVASTATIN CALCIUM 71177832339 Active Tawnya Pardo MA Active LOVASTATIN 40 MG ORAL TABS Take 1 tab po every hs LOVASTATIN 73771730307 No Longer Active Harinder Hernandez DO Active PREDNISONE 20 MG TAB 2 tabs daily for 4 days, 1 tab daily for 4 days, 1/2 tab daily for 4 days PREDNISONE 31984078194 No Longer Active Harinder Hernandez DO Active LEVAQUIN 500 MG ORAL TABS Take 1 tab po daily x 8 days LEVOFLOXACIN 15395170100 No Longer Active Harinder Hernandez DO Active VENTOLIN HFA 108 (90 BASE) MCG/ACT AERS 2 -4 puffs four times a day PRN 2013 ALBUTEROL SULFATE 29815198347 No Longer Active Jeri Sosa RPT,RMA Active ACEBUTOLOL HCL 200 MG CAPS 1 cap in the morning and 2 caps in the evening ACEBUTOLOL HCL 81418808081 No Longer Active Harinder Hernandez DO Active CEFDINIR 300 MG ORAL CAPS take 1 cap po bid x 10 days CEFDINIR 06071311196 No Longer Active Harinder Hernandez DO Active LOVASTATIN 40 MG TABS 1 pill by mouth nightly for cholesterol LOVASTATIN 98286565944 No Longer Active Nettie Newberry APRN Active NITROSTAT 0.4 MG SUBL 1 tab under tongueas needed for chest pain ( may take 3 total, 5 min apart, then call 911) NITROGLYCERIN 20958663233 No Longer Active Nettie Newberry APRN Active POTASSIUM CHLORIDE CR 10 MEQ CPCR 1 capsule by mouth daily 02/14 POTASSIUM CHLORIDE 06067226905 No Longer Active Nettie Newberry APRN Active TESSALON PERLES 100 MG CAP 1 to 2 tablets by mouth 3 times daily as needed for cough BENZONATATE 76828166045 No Longer Active Nettie Newberry APRN Active THEOPHYLLINE ER 200 MG ORAL [id number] Take 1 tab every 12 hours THEOPHYLLINE 63379391427 Active Tawnya Pardo MA Active PREDNISONE 20 MG TAB 2 po qd x 5 days PREDNISONE 86447267323 No Longer Active Jae Morgan MD Active AZITHROMYCIN 250 MG TABS 2 po qd x 1 day, then 1 po qd x 4 days AZITHROMYCIN 49787291024 No Longer Active Jae Morgan MD Active PREDNISONE 20 MG TAB 1 tab twice daily for 3 day, then one daily for three days PREDNISONE 80207895350 No Longer Active Jae Morgan MD Active SINGULAIR 10 MG TABS 1 pill by mouth every evening for breathing. MONTELUKAST SODIUM 76703495958 Active Tawnya Pardo MA Active TYLENOL 325 MG TAB 3 by mouth q4h as needed ACETAMINOPHEN 56589673304 Active Harinder Hernandez DO Active POTASSIUM CHLORIDE ER 10 MEQ CR-TABS take 1 tab po daily POTASSIUM CHLORIDE 17401454098 No Longer Active Harinder Hernandez DO Active PREDNISONE 20 MG TAB 1 TID x 2 days, then 1 BID x 3 days, then 1 Daily x 3 days, then stop PREDNISONE 31502554906 No Longer Active John Montemayor APRN Active LEVAQUIN 500 MG TAB 1 tablet by mouth daily LEVOFLOXACIN 79588097783 No Longer Active Jillkvng Montemayor APRN Active NEURONTIN 300 MG CAP 1 cap by mouth three times daily for restless leg 06/22 GABAPENTIN 68004956573 No Longer Active Harinder Hernandez DO Active BENZONATATE 100 MG CAPS 1 cap po TID PRN BENZONATATE 72683600690 No Longer Active Harinder Hernandez DO Active MONTELUKAST SODIUM 10 MG TABS 1 tab po in the evening MONTELUKAST SODIUM 05858708963 No Longer Active Harinder Hernandez DO Active MUPIROCIN 2 % OINT apply to affected area BID x 14 days MUPIROCIN 48077556181 No Longer Active Harinder Hernandez DO Active TYLENOL EXTRA STRENGTH 500 MG TABS as needed ACETAMINOPHEN 55446726194 No Longer Active Harinder Hernandez DO Active PREDNISONE 10 MG TABS 1 tab po daily PREDNISONE 97830322400 No Longer Active Harinder Hernandez DO Active PREDNISONE 20 MG TAB 2 tabs daily for 4 days, 1 tab daily for 4 days, 1/2 tab daily for 4 days PREDNISONE 09542272150 No Longer Active Harinder Hernandez DO Active AZITHROMYCIN 250 MG TABS 2 po qd x 1 day, then 1 po qd x 4 days AZITHROMYCIN 39606860030 No Longer Active Harinder Hernandez DO Active PREDNISONE 20 MG TAB 3 tabs today, then 1 tab twice daily for 3 day, then one daily for three days PREDNISONE 09693178370 No Longer Active Harinder Hernandez DO Active NIFEDIAC CC 30 MG [id number] 1 tablet daily for raynaud's syndrome NIFEDIPINE 46577646550 No Longer Active Tawnya Pardo MA Active AMBIEN 10 MG TAB 1/2 tab by mouth at bedtime as needed for sleep ZOLPIDEM TARTRATE 03382363974 Active Harinder Hernandez DO Active CLONAZEPAM 1 MG TABS 1 tablet at bedtime for insomnia and restless legs 09/14 CLONAZEPAM 16321148994 Active Kaylah Newberry Active CLONAZEPAM 0.5 MG TABS 1 tab po daily CLONAZEPAM 77975781117 No Longer Active Harinder Hernandez DO Active PREDNISONE 10 MG TAB 1 tablet daily for COPD PREDNISONE 14599231254 Active Tawnya Pardo MA Active PROAIR HFA 108 (90 BASE) MCG/ACT AERS 2 puffs four times a day as needed 2012 ALBUTEROL SULFATE 70034238753 Active Tawnya Pardo MA Active FLOVENT HFA 110 MCG/ACT AERO 2 puffs inhaled b.i.d. FLUTICASONE PROPIONATE HFA 96416743269 Active Tawnya Pardo MA Active ACIPHEX 20 MG TBEC 1 tab po daily RABEPRAZOLE SODIUM 57552342297 Active Kaylah Newberry Active CLONAZEPAM 0.5 MG TABS 1 tab po daily CLONAZEPAM 0.5 MG TABS 552911 CLONAZEPAM Inactive PREDNISONE 20 MG TAB 3 tabs today, then 1 tab twice daily for 3 day, then one daily for three days PREDNISONE 20 MG TAB 723818 PREDNISONE Inactive PREDNISONE 20 MG TAB 2 tabs daily for 4 days, 1 tab daily for 4 days, 1/2 tab daily for 4 days PREDNISONE 20 MG TAB 294595 PREDNISONE Inactive PREDNISONE 10 MG TABS 1 tab po daily PREDNISONE 10 MG TABS 720273 PREDNISONE Inactive TYLENOL EXTRA STRENGTH 500 MG TABS as needed TYLENOL EXTRA STRENGTH 500 MG TABS 032043 ACETAMINOPHEN Inactive MUPIROCIN 2 % OINT apply to affected area BID x 14 days MUPIROCIN 2 % OINT 098832 MUPIROCIN Inactive MONTELUKAST SODIUM 10 MG TABS 1 tab po in the evening MONTELUKAST SODIUM 10 MG TABS 168142 MONTELUKAST SODIUM Inactive BENZONATATE 100 MG CAPS 1 cap po TID PRN BENZONATATE 100 MG CAPS 853783 BENZONATATE Inactive NEURONTIN 300 MG CAP 1 cap by mouth three times daily for restless leg 06/22 NEURONTIN 300 MG CAP 776892 GABAPENTIN Inactive LEVAQUIN 500 MG TAB 1 tablet by mouth daily LEVAQUIN 500 MG TAB 635964 LEVOFLOXACIN Inactive PREDNISONE 20 MG TAB 1 TID x 2 days, then 1 BID x 3 days, then 1 Daily x 3 days, then stop PREDNISONE 20 MG TAB 646550 PREDNISONE Inactive POTASSIUM CHLORIDE ER 10 MEQ CR-TABS take 1 tab po daily POTASSIUM CHLORIDE ER 10 MEQ CR-TABS POTASSIUM CHLORIDE Inactive PREDNISONE 20 MG TAB 1 tab twice daily for 3 day, then one daily for three days PREDNISONE 20 MG TAB 187364 PREDNISONE Inactive TESSALON PERLES 100 MG CAP 1 to 2 tablets by mouth 3 times daily as needed for cough TESSALON PERLES 100 MG CAP 360732 BENZONATATE Inactive POTASSIUM CHLORIDE CR 10 MEQ CPCR 1 capsule by mouth daily 02/14 POTASSIUM CHLORIDE CR 10 MEQ CPCR POTASSIUM CHLORIDE Inactive NITROSTAT 0.4 MG SUBL 1 tab under tongueas needed for chest pain ( may take 3 total, 5 min apart, then call 911) NITROSTAT 0.4 MG SUBL 217267 NITROGLYCERIN Inactive LOVASTATIN 40 MG TABS 1 pill by mouth nightly for cholesterol LOVASTATIN 40 MG TABS 077216 LOVASTATIN Inactive CEFDINIR 300 MG ORAL CAPS take 1 cap po bid x 10 days CEFDINIR 300 MG ORAL CAPS 808145 CEFDINIR Inactive ACEBUTOLOL HCL 200 MG CAPS 1 cap in the morning and 2 caps in the evening ACEBUTOLOL HCL 200 MG CAPS 723964 ACEBUTOLOL HCL Inactive VENTOLIN HFA 108 (90 BASE) MCG/ACT AERS 2 -4 puffs four times a day PRN 2013 VENTOLIN HFA 108 (90 BASE) MCG/ACT AERS ALBUTEROL SULFATE Inactive LEVAQUIN 500 MG ORAL TABS Take 1 tab po daily x 8 days LEVAQUIN 500 MG ORAL TABS 379995 LEVOFLOXACIN Inactive PREDNISONE 20 MG TAB 2 tabs daily for 4 days, 1 tab daily for 4 days, 1/2 tab daily for 4 days PREDNISONE 20 MG TAB 887682 PREDNISONE Inactive LOVASTATIN 40 MG ORAL TABS Take 1 tab po every hs LOVASTATIN 40 MG ORAL TABS 769608 LOVASTATIN Inactive DILAUDID 2 MG ORAL TABS Take 1/2 tab po every 4 hours as needed for pain 2014 DILAUDID 2 MG ORAL TABS 154748 HYDROMORPHONE HCL Inactive AMITRIPTYLINE HCL 25 MG ORAL TABS 1 q hs prn AMITRIPTYLINE HCL 25 MG ORAL TABS 374123 AMITRIPTYLINE HCL Inactive MECLIZINE HCL 25 MG TAB 1 tablet three times daily for 3 days, then 1/2 tab three times daily for 3 days. MECLIZINE HCL 25 MG TAB 000606 MECLIZINE HCL Inactive AMLODIPINE BESYLATE 5 MG ORAL TABS Take 1 tab po daily AMLODIPINE BESYLATE 5 MG ORAL TABS 510009 AMLODIPINE BESYLATE Inactive TOPIRAMATE 25 MG TABS 1 tab po BID TOPIRAMATE 25 MG TABS 603296 TOPIRAMATE Inactive PREDNISONE 20 MG TAB 1 tablet twice daily for 2 days, then 1 tablet once daily for 2 days PREDNISONE 20 MG TAB 426797 PREDNISONE Inactive PREDNISONE 20 MG TAB 1 tab twice daily for 3 day, then one daily for three days PREDNISONE 20 MG TAB 006882 PREDNISONE Inactive AZITHROMYCIN 250 MG TABS 2 po qd x 1 day, then 1 po qd x 4 days AZITHROMYCIN 250 MG TABS 5017248 AZITHROMYCIN Inactive AZITHROMYCIN 250 MG TABS 2 po qd x 1 day, then 1 po qd x 4 days AZITHROMYCIN 250 MG TABS 0908056 AZITHROMYCIN Inactive PREDNISONE 20 MG TAB 2 po qd x 5 days PREDNISONE 20 MG TAB 077373 PREDNISONE Inactive Vital Signs Date Name Value Unit Range Description blood pressure, diastolic - 8462-4 63 mm[Hg] BP adan blood pressure, systolic - 8480-6 115 mm[Hg] BP sys pulse rate E&M - 8867-4 89 /min Heart rate temperature E&M 96.1 [degF] Body temperature weight E&M - 3141-9 125.5 [lb_av] Weight Measured blood pressure, diastolic - 8462-4 69 mm[Hg] BP adan blood pressure, systolic - 8480-6 135 mm[Hg] BP sys pulse rate E&M - 8867-4 70 /min Heart rate temperature E&M 96.8 [degF] Body temperature weight E&M - 3141-9 129 [lb_av] Weight Measured blood pressure, diastolic - 8462-4 70 mm[Hg] BP adan blood pressure, systolic - 8480-6 113 mm[Hg] BP sys pulse rate E&M - 8867-4 74 /min Heart rate temperature E&M 97.1 [degF] Body temperature weight E&M - 3141-9 131 [lb_av] Weight Measured blood pressure, diastolic - 8462-4 76 mm[Hg] BP adan blood pressure, systolic - 8480-6 117 mm[Hg] BP sys pulse rate E&M - 8867-4 76 /min Heart rate temperature E&M 97.2 [degF] Body temperature weight E&M - 3141-9 128 [lb_av] Weight Measured blood pressure, diastolic - [...] BP sys pulse rate E&M - 8867-4 84 /min Heart rate temperature E&M 97.8 [degF] Body temperature weight E&M - 3141-9 126 [lb_av] Weight Measured Diagnostic Results Date Name Value Unit Range Description Lab Report: CBC - Hematology leukocyte count, [...] count 182 10^3/MM^3 10*3/mm3 142-424 Lab Report: Lipid Panel, Comp. Metabolic Panel, Magnesium - Chemistry cholesterol, serum 180 mg/dL 363-644 4728/08/08 triglyceride, serum, fasting 92 mg/dL 30-200 HDL cholesterol, serum 66 mg/dL 32-96 LDL cholesterol, serum 96 mg/dL 0-130 sodium, serum 142 mmol/L 824-644 8967/08/08 carbon dioxide, venous blood 27.4 mmol/L 21.0-32.0 [...] 10.0-20.0 Encounters Code Encounter Date Provider Facility CPT-03664 Level 3 Est. Patient 09:58:58 CDT Harinder Cr [facility] CPT-96359 Level 3 Est. Patient 12:37:21 CDT Harinder Cr [facility] CPT-33082 Level 3 Est. Patient 18:37:17 CDT Harinder Cr [facility] CPT-19456 Level 4 Est. Patient 11:15:54 CDT Nettie Newberry [employer] [facility] CPT-81576 Level 3 Est. Patient 16:42:24 CDT Harinder Cr [facility] CPT-56801 Level 3 Est. Patient 15:03:36 CDT Harinder W [facility] CPT-17069 Level 3 Est. Patient 15:03:20 CDT Harinder Hernandez [facility] CPT-13234 Level 3 Est. Patient 12:14:34 CDT Harinder Hernandez [facility] CPT-21494 Level 3 Est. Patient 13:47:15 CDT Harinder Hernandez [facility] CPT-03915 Level 3 Est. Patient 14:08:24 CDT Harinder Hernandez [facility] CPT-29075 Level 3 Est. Patient 10:07:15 CDT Harinder Hernandez [facility] CPT-62183 Level 3 Est. Patient 10:06:59 CDT Harinder Hernandez [facility] CPT-19617 Level 3 Est. Patient 15:53:29 CDT Jae Morgan MD [facility] CPT-89413 Level 3 Est. Patient 17:19:04 CDT Harinder Hernandez [facility] CPT-72719 Level 3 Est. Patient 11:13:01 CDT Harinder Hernandez [facility] CPT-76113 Level 3 Est. Patient 09:03:58 CDT Harinder Hernandez [facility] CPT-76210 Level 3 Est. Patient 14:46:45 SENIOR QUALITY CONTROL TECHNICIAN Harinder Hernandez [facility] CPT-88809 Level 3 Est. Patient 09:35:49 SENIOR QUALITY CONTROL TECHNICIAN Harinder Hernandez [facility] CPT-30879 Level 3 Est. Patient 09:29:37 SENIOR QUALITY CONTROL TECHNICIAN Harinder Hernandez [facility] CPT-04850 Level 3 Est. Patient 15:51:07 CDT Harinder Hernandez [facility] CPT-91080 Level 3 Est. Patient 18:13:13 CDT Harinder Cr [facility] CPT-84310 Level 3 Est. Patient 10:44:19 CDT Harinder Hernandez [facility] CPT-22825 Level 4 Est. Patient 10:07:19 SENIOR QUALITY CONTROL TECHNICIAN Harinder Hernandez [facility] CPT-83016 Level 3 Est. Patient 15:59:32 SENIOR QUALITY CONTROL TECHNICIAN Harinder Cr [facility] Procedures Code Procedure Name Date Entry Date Standard Description CPT-28496 Microalbumin - LAB USE ONLY 11:52:05 CDT CPT-TCMM Transitional Care Mgmt-Moderate 11:33:57 CDT CPT-80018 No Charge Offi Visit 14:11:29 CDT CPT-41278 Magnesium - LAB USE ONLY 10:45:44 CDT CPT-92012 Lipid - LAB USE ONLY 10:45:44 CDT CPT-05410 CBC - LAB USE ONLY 10:45:44 CDT CPT-42007 Venipuncture Draw Fee 10:45:43 CDT CPT-69829 Venipuncture Draw Fee 18:21:27 CDT CPT-JTINJ Asp/Joint Injection 18:38:04 CDT CPT-11956 Immunization Each Additional Inj 17:38:04 CDT CPT-76057 Immunization Single Admin 17:38:04 CDT CPT-45988 Prevnar 13 17:38:04 CDT CPT-32148 Fluzone Quadrivalent preservative free (>=3yrs.) 17:38: 04 CDT CPT-13255 No Charge Offi Visit 11:14:03 CDT CPT-79618 Chest 2V Frontal and Lat 14:00:18 CDT CPT-OV Office Visit 16:10:28 CDT CPT-JTINJ Asp/Joint Injection 09:03:57 CDT CPT-Cryo Cryotherapy 09:35:49 SENIOR QUALITY CONTROL TECHNICIAN CPT-JTINJ Asp/Joint Injection 09:34:45 SENIOR QUALITY CONTROL TECHNICIAN CPT-J2930 Solu Medrol 125 mg (Methyl Prednisolone Sodium Succinate) 20:37:27 CDT CPT-61281 Abx/Therapy Injection 20:37:27 CDT CPT-95454 Port a cath flush 08:15:51 CDT CPT-38797 Port a cath flush 09:54:16 CDT CPT-36934 Port a cath flush 09:38:02 CDT CPT-27124 Port a cath flush 11:00:27 SENIOR QUALITY CONTROL TECHNICIAN
--- OUTSIDE RECORDS SUMMARY | 2017-12-28 23:46 | XMS REPORT | Clinical Summary ---
Author Author Admin, QIE Organization [facility] [employer] Address Unknown Phone Unavailable Allergies, Adverse Reactions, [...] Harinder Hernandez DO Pneumonia ICD-486 Inactive Harinder Heranndez DO Bacteremia ICD-790.7 Inactive Harinder Hernandez DO [...] Generic Name NDC Status Provider Patient Instruction POTASSIUM CHLORIDE 20 MEQ ORAL PACK 1 tab po BID for 7 days then 1 tab po q day therafter. POTASSIUM CHLORIDE 16931111132 Active Kortney Mccain Active POTASSIUM CHLORIDE CR 10 MEQ CPCR 1 capsule BID POTASSIUM CHLORIDE 38102143620 No Longer Active Kortney Mccain Active LASIX 20 MG TAB 1 tablet by mouth every morning FUROSEMIDE 35539767433 No Longer Active Kortney Mccain Active SPIRONOLACTONE 25 MG TAB 1 tablet by mouth daily SPIRONOLACTONE 04359974181 Active Ciera Pimentel Active FLUOXETINE HCL 10 MG ORAL CAPS 1 po qd for depression/anxiety FLUOXETINE HCL 14167891812 Active Harinder Hernandez DO Active VOLTAREN 1 % GEL apply q 6-8 hour to left arm as needed for pain DICLOFENAC SODIUM 20779854540 Active Harinder Hernandez DO Active ALBUTEROL SULFATE 0.083 % NEBU SOLN 1 vial neb q 4hrs for severe asthma. 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 FLUTICASONE PROPIONATE HFA 87879206288 Active Harinder Hernandez DO Active EPIPEN 2-BRUNA 0.3 MG/0.3ML INJ SOAJ 1 INJ NEEDED EPINEPHRINE 91274708513 Active Harinder Hernandez DO Active PREDNISONE 20 MG TAB 1 tab twice daily for 3 day, then one daily for three days PREDNISONE 38357741119 No Longer Active Harinder Hernandez DO Active PREDNISONE 20 MG TAB 1 tablet twice daily for 2 days, then 1 tablet once daily for 2 days PREDNISONE 43307414564 No Longer Active Harinder Hernandez DO Active ASMANEX 120 METERED DOSES 220 MCG/INH INH AEPB 2 puffs orally twice daily MOMETASONE FUROATE 35945523386 Active Jeri Sosa LPN Active TOPIRAMATE 25 MG TABS 1 tab po BID TOPIRAMATE 38079539120 No Longer Active Nettie Newberry APRN Active AMLODIPINE BESYLATE 5 MG ORAL TABS Take 1 tab po daily AMLODIPINE BESYLATE 97119672715 No Longer Active Nettie Newberry APRN Active MECLIZINE HCL 25 MG TAB 1 tablet three times daily for 3 days, then 1/2 tab three times daily for 3 days. MECLIZINE HCL 08523481754 No Longer Active Nettie Newberry MAHENDRA Active AMITRIPTYLINE HCL 25 MG ORAL TABS 1 q hs prn AMITRIPTYLINE HCL 53549251440 No Longer Active Nettei Newberry MAHENDRA Active DILAUDID 2 MG ORAL TABS Take 1/2 tab po every 4 hours as needed for pain 2014 HYDROMORPHONE HCL 31251162816 No Longer Active Nettieog Newberry APRN Active CLOPIDOGREL BISULFATE 75 MG ORAL TABS 1 tab by mouth once daily CLOPIDOGREL BISULFATE 00929483540 Active Harinder Hernandez DO Active ATORVASTATIN CALCIUM 10 MG ORAL TABS 1 at bedtime ATORVASTATIN CALCIUM 25050920258 Active Tawnya Pardo MA Active LOVASTATIN 40 MG ORAL TABS Take 1 tab po every hs LOVASTATIN 48522929893 No Longer Active Harinder Hernandez DO Active PREDNISONE 20 MG TAB 2 tabs daily for 4 days, 1 tab daily for 4 days, 1/2 tab daily for 4 days PREDNISONE 39850999128 No Longer Active Harinder Hernandez DO Active LEVAQUIN 500 MG ORAL TABS Take 1 tab po daily x 8 days LEVOFLOXACIN 97633836494 No Longer Active Harinder Hernandez DO Active VENTOLIN HFA 108 (90 BASE) MCG/ACT AERS 2 -4 puffs four times a day PRN 2013 ALBUTEROL SULFATE 20772537687 No Longer Active Jeri Sosa LPN Active ACEBUTOLOL HCL 200 MG CAPS 1 cap in the morning and 2 caps in the evening ACEBUTOLOL HCL 13549084236 No Longer Active Harinder Hernandez DO Active CEFDINIR 300 MG ORAL CAPS take 1 cap po bid x 10 days CEFDINIR 11923494262 No Longer Active Harinder Hernandez DO Active LOVASTATIN 40 MG TABS 1 pill by mouth nightly for cholesterol LOVASTATIN 76720754114 No Longer Active Nettie Rohith MAHENDRA Active NITROSTAT 0.4 MG SUBL 1 tab under tongueas needed for chest pain ( may take 3 total, 5 min apart, then call 911) NITROGLYCERIN 04209827940 No Longer Active Nettie Newberry MAHENDRA Active POTASSIUM CHLORIDE CR 10 MEQ CPCR 1 capsule by mouth daily 02/14 POTASSIUM CHLORIDE 64627550614 [facility] [place] Active TESSALON PERLES 100 MG CAP 1 to 2 tablets by mouth 3 times daily as needed for cough BENZONATATE 29413413160 No Longer Active Nettie Newberry MAHENDRA Active THEOPHYLLINE ER 200 MG ORAL [id number] Take 1 tab every 12 hours THEOPHYLLINE 61430690258 Active Harinder Hernandez DO Active PREDNISONE 20 MG TAB 2 po qd x 5 days PREDNISONE 96037019591 No Longer Active Jae Morgan MD Active AZITHROMYCIN 250 MG TABS 2 po qd x 1 day, then 1 po qd x 4 days AZITHROMYCIN 82649996629 No Longer Active Jae Morgan MD Active PREDNISONE 20 MG TAB 1 tab twice daily for 3 day, then one daily for three days PREDNISONE 57933035965 No Longer Active Jae Morgan MD Active SINGULAIR 10 MG TABS 1 pill by mouth every evening for breathing. MONTELUKAST SODIUM 49296034821 Active Tawnya Pardo MA Active TYLENOL 325 MG TAB 3 by mouth q4h as needed ACETAMINOPHEN 08236489563 Active Harinder Hernandez DO Active POTASSIUM CHLORIDE ER 10 MEQ CR-TABS take 1 tab po daily POTASSIUM CHLORIDE 02355215384 No Longer Active Harinder Hernandez DO Active PREDNISONE 20 MG TAB 1 TID x 2 days, then 1 BID x 3 days, then 1 Daily x 3 days, then stop PREDNISONE 46287092270 No Longer Active John Montemayor APRN Active LEVAQUIN 500 MG TAB 1 tablet by mouth daily LEVOFLOXACIN 07507977474 No Longer Active John Montemayor [employer] Active NEURONTIN 300 MG CAP 1 cap by mouth three times daily for restless leg 06/22 GABAPENTIN 41141153907 No Longer Active Harinder Hernandez DO Active BENZONATATE 100 MG CAPS 1 cap po TID PRN BENZONATATE 63549230195 No Longer Active Harinder Hernandez DO Active MONTELUKAST SODIUM 10 MG TABS 1 tab po in the evening MONTELUKAST SODIUM 54378813375 No Longer Active Harinder Hernandez DO Active MUPIROCIN 2 % OINT apply to affected area BID x 14 days MUPIROCIN 41325448476 No Longer Active Harinder Hernandez DO Active TYLENOL EXTRA STRENGTH 500 MG TABS as needed ACETAMINOPHEN 78098066996 No Longer Active Harinder Hernandez DO Active PREDNISONE 10 MG TABS 1 tab po daily PREDNISONE 02505960566 No Longer Active Harinder Hernandez DO Active PREDNISONE 20 MG TAB 2 tabs daily for 4 days, 1 tab daily for 4 days, 1/2 tab daily for 4 days PREDNISONE 56930572792 No Longer Active Harinder Hernandez DO Active AZITHROMYCIN 250 MG TABS 2 po qd x 1 day, then 1 po qd x 4 days AZITHROMYCIN 71275231817 No Longer Active Harinder Hernandez DO Active PREDNISONE 20 MG TAB 3 tabs today, then 1 tab twice daily for 3 day, then one daily for three days PREDNISONE 84923890554 No Longer Active Harinder Hernandez DO Active NIFEDIAC CC 30 MG [id number] 1 tablet daily for raynaud's syndrome NIFEDIPINE 16841047145 No Longer Active Tawnya Pardo MA Active AMBIEN 10 MG TAB 1/2 tab by mouth at bedtime as needed for sleep ZOLPIDEM TARTRATE 27170623834 Active Harinder Hernandez DO Active CLONAZEPAM 1 MG TABS 1 tablet at bedtime for insomnia and restless legs 09/14 CLONAZEPAM 71918989070 Active Harinder Hernandez DO Active CLONAZEPAM 0.5 MG TABS 1 tab po daily CLONAZEPAM 40579820616 No Longer Active Harinder Hernandez DO Active PREDNISONE 10 MG TAB 1 tablet daily for COPD PREDNISONE 33087180829 Active Harinder Hernandez DO Active PROAIR HFA 108 (90 BASE) MCG/ACT AERS 2 puffs four times a day as needed 2012 ALBUTEROL SULFATE 70865144226 Active Harinder Hernandez DO Active FLOVENT HFA 110 MCG/ACT AERO 2 puffs inhaled b.i.d. FLUTICASONE PROPIONATE HFA 30036202893 Active Kortney Mccain Active ACIPHEX 20 MG TBEC 1 tab po daily RABEPRAZOLE SODIUM 64305095270 Active Kaylah Newberry Active CLONAZEPAM 0.5 MG TABS 1 tab po daily CLONAZEPAM 0.5 MG TABS 944538 CLONAZEPAM Inactive PREDNISONE 20 MG TAB 3 tabs today, then 1 tab twice daily for 3 day, then one daily for three days PREDNISONE 20 MG TAB 750396 PREDNISONE Inactive PREDNISONE 20 MG TAB 2 tabs daily for 4 days, 1 tab daily for 4 days, 1/2 tab daily for 4 days PREDNISONE 20 MG TAB 218069 PREDNISONE Inactive PREDNISONE 10 MG TABS 1 tab po daily PREDNISONE 10 MG TABS 375199 PREDNISONE Inactive TYLENOL EXTRA STRENGTH 500 MG TABS as needed TYLENOL EXTRA STRENGTH 500 MG TABS ACETAMINOPHEN Inactive MUPIROCIN 2 % OINT apply to affected area BID x 14 days MUPIROCIN 2 % OINT 881191 MUPIROCIN Inactive MONTELUKAST SODIUM 10 MG TABS 1 tab po in the evening MONTELUKAST SODIUM 10 MG TABS 20010818 MONTELUKAST SODIUM Inactive BENZONATATE 100 MG CAPS 1 cap po TID PRN BENZONATATE 100 MG CAPS 942483 BENZONATATE Inactive NEURONTIN 300 MG CAP 1 cap by mouth three times daily for restless leg 06/22 NEURONTIN 300 MG CAP 830192 GABAPENTIN Inactive LEVAQUIN 500 MG TAB 1 tablet by mouth daily LEVAQUIN 500 MG TAB 047375 LEVOFLOXACIN Inactive PREDNISONE 20 MG TAB 1 TID x 2 days, then 1 BID x 3 days, then 1 Daily x 3 days, then stop PREDNISONE 20 MG TAB 051286 PREDNISONE Inactive POTASSIUM CHLORIDE ER 10 MEQ CR-TABS take 1 tab po daily POTASSIUM CHLORIDE ER 10 MEQ CR-TABS POTASSIUM CHLORIDE Inactive PREDNISONE 20 MG TAB 1 tab twice daily for 3 day, then one daily for three days PREDNISONE 20 MG TAB 047329 PREDNISONE Inactive TESSALON PERLES 100 MG CAP 1 to 2 tablets by mouth 3 times daily as needed for cough TESSALON PERLES 100 MG CAP 916117 BENZONATATE Inactive POTASSIUM CHLORIDE CR 10 MEQ CPCR 1 capsule by mouth daily 02/14 POTASSIUM CHLORIDE CR 10 MEQ CPCR POTASSIUM CHLORIDE Inactive NITROSTAT 0.4 MG SUBL 1 tab under tongueas needed for chest pain ( may take 3 total, 5 min apart, then call 911) NITROSTAT 0.4 MG SUBL 806486 NITROGLYCERIN Inactive LOVASTATIN 40 MG TABS 1 pill by mouth nightly for cholesterol LOVASTATIN 40 MG TABS 384601 LOVASTATIN Inactive CEFDINIR 300 MG ORAL CAPS take 1 cap po bid x 10 days CEFDINIR 300 MG ORAL CAPS 351343 CEFDINIR Inactive ACEBUTOLOL HCL 200 MG CAPS 1 cap in the morning and 2 caps in the evening ACEBUTOLOL HCL 200 MG CAPS 229048 ACEBUTOLOL HCL Inactive VENTOLIN HFA 108 (90 BASE) MCG/ACT AERS 2 -4 puffs four times a day PRN 2013 VENTOLIN HFA 108 (90 BASE) MCG/ACT AERS ALBUTEROL SULFATE Inactive LEVAQUIN 500 MG ORAL TABS Take 1 tab po daily x 8 days LEVAQUIN 500 MG ORAL TABS 209637 LEVOFLOXACIN Inactive PREDNISONE 20 MG TAB 2 tabs daily for 4 days, 1 tab daily for 4 days, 1/2 tab daily for 4 days PREDNISONE 20 MG TAB 303002 PREDNISONE Inactive LOVASTATIN 40 MG ORAL TABS Take 1 tab po every hs LOVASTATIN 40 MG ORAL TABS 347739 LOVASTATIN Inactive DILAUDID 2 MG ORAL TABS Take 1/2 tab po every 4 hours as needed for pain 2014 DILAUDID 2 MG ORAL TABS 828838 HYDROMORPHONE HCL Inactive AMITRIPTYLINE HCL 25 MG ORAL TABS 1 q hs prn AMITRIPTYLINE HCL 25 MG ORAL TABS 790171 AMITRIPTYLINE HCL Inactive MECLIZINE HCL 25 MG TAB 1 tablet three times daily for 3 days, then 1/2 tab three times daily for 3 days. MECLIZINE HCL 25 MG TAB 744587 MECLIZINE HCL Inactive AMLODIPINE BESYLATE 5 MG ORAL TABS Take 1 tab po daily AMLODIPINE BESYLATE 5 MG ORAL TABS 915242 AMLODIPINE BESYLATE Inactive TOPIRAMATE 25 MG TABS 1 tab po BID TOPIRAMATE 25 MG TABS 811123 TOPIRAMATE Inactive PREDNISONE 20 MG TAB 1 tablet twice daily for 2 days, then 1 tablet once daily for 2 days PREDNISONE 20 MG TAB 392695 PREDNISONE Inactive PREDNISONE 20 MG TAB 1 tab twice daily for 3 day, then one daily for three days PREDNISONE 20 MG TAB 445698 PREDNISONE Inactive NIFEDIPINE ER 30 MG ORAL [id number] 1 daily NIFEDIPINE ER 30 MG ORAL [id number] NIFEDIPINE Inactive AMLODIPINE BESYLATE 5 MG TABS 1 tablet by mouth daily AMLODIPINE BESYLATE 5 MG TABS 903604 AMLODIPINE BESYLATE Inactive LASIX 20 MG TAB 1 tablet by mouth every morning LASIX 20 MG TAB 972525 FUROSEMIDE Inactive POTASSIUM CHLORIDE CR 10 MEQ CPCR 1 capsule BID POTASSIUM CHLORIDE CR 10 MEQ CPCR POTASSIUM CHLORIDE Inactive AZITHROMYCIN 250 MG TABS 2 po qd x 1 day, then 1 po qd x 4 days AZITHROMYCIN 250 MG TABS 1995598 AZITHROMYCIN Inactive AZITHROMYCIN 250 MG TABS 2 po qd x 1 day, then 1 po qd x 4 days AZITHROMYCIN 250 MG TABS 2962330 AZITHROMYCIN Inactive PREDNISONE 20 MG TAB 2 po qd x 5 days PREDNISONE 20 MG TAB 585093 PREDNISONE Inactive Vital Signs Date Name Value [...] temperature weight E&M 129 [lb_av] Weight Measured Diagnostic Results Date Name Value Unit Range Description Lab Report: Basic Metabolic Panel - Chemistry sodium, serum 137 mmol/L 756-308 4859/01/03 potassium, serum 3.4 mmol/L 3.5-5.2 chloride, serum 102 mmol/L 98-107 carbon dioxide, venous blood 29.2 mmol/L 21.0-32.0 blood glucose 87 mg/dL 65-110 calcium, serum 8.5 mg/dL 8.5-10.1 urea nitrogen, blood 8 mg/dL 7-18 creatinine, serum 0.82 mg/dL 0.55-1.30 sodium, serum 140 mmol/L 468-038 7529/07/13 potassium, serum 3.2 mmol/L 3.5-5.2 chloride, serum 103 mmol/L 98-107 carbon dioxide, venous blood 26.9 mmol/L 21.0-32.0 blood glucose 93 mg/dL 65-110 calcium, serum 9.2 mg/dL 8.5-10.1 urea nitrogen, blood 13 mg/dL 7-18 creatinine, serum 0.84 mg/dL 0.60-1.30 Lab Report: CBC, UADIP W/MICRO, AUTO - Chemistry RBC, urine, dipstick 2+ Negative protein, total urine random Negative mg/dL Negative Lab Report: CBC, UADIP W/MICRO, AUTO [...] ... - Chemistry sodium, serum 141 mmol/L 044-683 9375/08/07 carbon dioxide, venous blood 34.0 mmol/L 21.0-32.0 [...] 0.00-1.00 TSH 0.80 m[iU]/mL 0.36-3.74 Lab Report: MICROALB/CREAT W/RATIO - Chemistry albumin/creatinine ratio, urine < 30 mg/g mg/g{creat} 0-29 Lab Report: MICROALB/CREAT W/RATIO - Lab microalbumin, urine 10 0-19 Encounters Code Encounter Date Provider Facility CPT-70233 Level 4 Est. Patient 14:45:25 CDT Harinder Cr [facility] CPT-29786 Level 4 Est. Patient 09:15:13 CDT Harinder Cr [facility] CPT-81947 Level 3 Est. Patient 11:51:58 CDT Harinder Cr [facility] CPT-85578 Level 3 Est. Patient 11:30:05 CDT Harinder rC [facility] CPT-33261 Level 4 Est. Patient 10:19:23 CDT Harinder Cr [facility] CPT-46499 Level 3 Est. Patient 09:58:58 CDT Harinder Cr [facility] CPT-57648 Level 3 Est. Patient 12:37:21 CDT Harinder Cr [facility] CPT-52793 Level 3 Est. Patient 18:37:17 CDT Harinder Cr [facility] CPT-26424 Level 4 Est. Patient 11:15:54 CDT Nettie Rohith [facility] CPT-98316 Level 3 Est. Patient 16:42:24 CDT Harinder Cr [facility] CPT-08453 Level 3 Est. Patient 15:03:36 CDT Harinder Cr [facility] CPT-96887 Level 3 Est. Patient 15:03:20 CDT Harinder Cr [facility] CPT-92642 Level 3 Est. Patient 12:14:34 CDT Harinder Cr [facility] CPT-32383 Level 3 Est. Patient 13:47:15 CDT Harinder Cr [facility] CPT-51324 Level 3 Est. Patient 14:08:24 CDT Harinder Shaye [facility] CPT-42010 Level 3 Est. Patient 10:07:15 CDT Harinder Shaye [facility] CPT-99567 Level 3 Est. Patient 10:06:59 CDT Harinder Hernandez [facility] CPT-56382 Level 3 Est. Patient 15:53:29 CDT Jae Morgan MD [facility] CPT-47257 Level 3 Est. Patient 17:19:04 CDT Harinder Cr David [facility] CPT-40572 Level 3 Est. Patient 11:13:01 CDT Harinder Hernandez [facility] CPT-09109 Level 3 Est. Patient 09:03:58 CDT Harinder Shaye David [facility] CPT-44789 Level 3 Est. Patient 14:46:45 PHOTOGRAMMETRIC ENGINEER Harinder Shaye Hernandez [facility] CPT-21600 Level 3 Est. Patient 09:35:49 PHOTOGRAMMETRIC ENGINEER Harinder Hernandez [facility] CPT-91993 Level 3 Est. Patient 09:29:37 PHOTOGRAMMETRIC ENGINEER Harinder Shaye Hernandez [facility] CPT-37024 Level 3 Est. Patient 15:51:07 CDT Harinder Shaye Hernandez [facility] CPT-07509 Level 3 Est. Patient 18:13:13 CDT Harinder Shaye Hernandez [facility] CPT-78453 Level 3 Est. Patient 10:44:19 CDT Harinder Cr [facility] CPT-42785 Level 4 Est. Patient 10:07:19 PHOTOGRAMMETRIC ENGINEER Harinder Cr David [facility] CPT-94517 Level 3 Est. Patient 15:59:32 PHOTOGRAMMETRIC ENGINEER Harinder Cr [facility] Procedures Code Procedure Name Date Entry Date Standard Description CPT-28411 Abd compl w upright - XRAY USE ONLY 14:48:09 CDT 02/18 CPT-91736 Port a cath flush 13:46:05 CDT CPT-59897 Hip, complete, 2-3 views - XRAY USE ONLY 10:28:40 CDT CPT-12102 BMP - LAB USE ONLY 16:45:09 PHOTOGRAMMETRIC ENGINEER CPT-51936 Port a cath flush 12:00:13 PHOTOGRAMMETRIC ENGINEER CPT-TCMM Transitional Care Mgmt-Moderate 11:20:16 PHOTOGRAMMETRIC ENGINEER CPT-46307 First Vx - Ix admin for Medicare patients 17:35:15 CDT CPT-12370 Fluzone Preservative Free Intramuscular Suspension 17:35 :15 CDT CPT-00059 Microalbumin - LAB USE ONLY 11:52:05 CDT CPT-TCMM Transitional Care Mgmt-Moderate 11:33:57 CDT CPT-95213 No Charge Offi Visit 14:11:29 CDT CPT-21794 Magnesium - LAB USE ONLY 10:45:44 CDT CPT-91191 Lipid - LAB USE ONLY 10:45:44 CDT CPT-90474 CBC - LAB USE ONLY 10:45:44 CDT CPT-67944 Venipuncture Draw Fee 10:45:43 CDT CPT-47415 Venipuncture Draw Fee 18:21:27 CDT CPT-JTINJ Asp/Joint Injection 18:38:04 CDT CPT-58587 Immunization Each Additional Inj 17:38:04 CDT CPT-32120 Immunization Single Admin 17:38:04 CDT CPT-57503 Prevnar 13 17:38:04 CDT CPT-35761 Fluzone Quadrivalent preservative free (>=3yrs.) 17:38: 04 CDT CPT-00586 No Charge Offi Visit 11:14:03 CDT CPT-73154 Chest 2V Frontal and Lat 14:00:18 CDT CPT-OV Office Visit 16:10:28 CDT CPT-JTINJ Asp/Joint Injection 09:03:57 CDT CPT-Cryo Cryotherapy 09:35:49 PHOTOGRAMMETRIC ENGINEER CPT-JTINJ Asp/Joint Injection 09:34:45 PHOTOGRAMMETRIC ENGINEER CPT-J2930 Solu Medrol 125 mg (Methyl Prednisolone Sodium Succinate) 20:37:27 CDT CPT-49042 Abx/Therapy Injection 20:37:27 CDT CPT-11259 Port a cath flush 08:15:51 CDT CPT-31097 Port a cath flush 09:54:16 CDT CPT-87880 Port a cath flush 09:38:02 CDT CPT-33745 Port a cath flush 11:00:27 PHOTOGRAMMETRIC ENGINEER
--- OUTSIDE RECORDS SUMMARY | 2017-12-28 23:47 | XMS REPORT | Clinical Summary ---
Author Author Admin, QIE Organization [facility] Address Unknown Phone Unavailable Allergies, Adverse [...] MD Diarrhea Benign positional vertigo 386.11 Resolved Hrainder Hernandez DO Benign paroxysmal positional vertigo Colon [...] thigh Raynaud's syndrome 443.0 Active Harinder Shaye David DO Raynaud's syndrome Edema leg 782.3 Active Harinder Hernandez DO Edema Breast mass, right ICD-611.72 Inactive Harinder Cr David DO Encounter for fitting and adjustment of vascular catheter ICD-V58.81 Inactive Harinder Hernandez DO Back pain, lumbar ICD-724.2 Inactive Harinder Cr David DO Insomnia ICD-780.52 Inactive Harinder Hernandez DO Sacroiliitis, right ICD-720.2 Inactive Harinder Hernandez DO Biceps tendinitis, left ICD-726.12 Inactive Harinder Hernandez DO Nausea and vomiting ICD-787.01 Inactive Jae Morgan MD Diarrhea ICD-787.91 Inactive Jae Morgan MD Benign positional vertigo ICD-386.11 Inactive Harinder Cr David DO Colon cancer screening ICD-V76.51 Inactive Harinder Cr David DO Screening for malignant neoplasm, colon ICD-V76.51 Inactive Harinder Cr David DO Pneumonia ICD-486 Inactive Harinder W David DO Bacteremia ICD-790.7 Inactive Harinder Shaye David DO 10/02 Clostridium difficile colitis ICD-008.45 Inactive Harinder Shaye David DO Abdominal pain, right lower quadrant ICD-789.03 Inactive Harinder Hernandez Needs vaccination for influenza ICD-V04.81 Inactive Harinder Hernandez DO Need for prophylactic vaccination against streptococcus pneumoniae ( Pneumococcus) ICD-V03.82 Inactive Harinder Hernandez Greater trochanteric bursitis, left ICD-726.5 Inactive Harinder Hernandez Medication List Medication Instructions Start Date Stop Date Generic Name NDC Status Provider Patient Instruction ALBUTEROL SULFATE 0.083 % NEBU SOLN 1 vial neb q 4hrs for severe asthma. imperative to have this agent ALBUTEROL SULFATE 37365845733 Active Ciera Pimentel Active NIFEDIAC CC 30 MG [id number] 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 NIFEDIPINE 30444274404 Active Harinder Hernandez DO Active AMLODIPINE BESYLATE 5 MG TABS 1 tablet by mouth daily AMLODIPINE BESYLATE 70273018180 No Longer Active Harinder Hernandez DO Active TOPAMAX 25 MG ORAL TABS 1 tab po BID TOPIRAMATE 16780815254 Active Kortney Mccain Active FLUTICASONE PROPIONATE 50 MCG/ACT SUSP 2 sprays per nostril daily PRN Allergies FLUTICASONE PROPIONATE 46345815506 Active Kortney Mccain Active NIFEDIPINE ER 30 MG ORAL [id number] 1 daily NIFEDIPINE 23052551971 No Longer Active Harinder Hernandez DO Active POTASSIUM CHLORIDE 20 MEQ ORAL PACK Take 1 tablet by mouth daily POTASSIUM CHLORIDE 04912591303 Prince Pimentel Active FLOVENT HFA 110 MCG/ACT AERO 2 puffs inhaled b.i.d. FLUTICASONE PROPIONATE HFA 19415381294 Active Harinder Hernandez DO Active POTASSIUM CHLORIDE CR 10 MEQ CPCR 1 capsule by mouth daily POTASSIUM CHLORIDE 54900680648 Active Harinder Hernandez DO Active EPIPEN 2-BRUNA 0.3 MG/0.3ML INJ SOAJ 1 INJ NEEDED EPINEPHRINE 52738971611 Active Harinder Hernandez DO Active PREDNISONE 20 MG TAB 1 tab twice daily for 3 day, then one daily for three days PREDNISONE 78077021951 No Longer Active Harinder Hernandez DO Active PREDNISONE 20 MG TAB 1 tablet twice daily for 2 days, then 1 tablet once daily for 2 days PREDNISONE 75411324902 No Longer Active Harinder Hernandez DO Active ASMANEX 120 METERED DOSES 220 MCG/INH INH AEPB 2 puffs orally twice daily MOMETASONE FUROATE 80635827175 Active Jeri Sosa RPT,RMA Active TOPIRAMATE 25 MG TABS 1 tab po BID TOPIRAMATE 12201790470 No Longer Active Nettie Newberry APRN Active AMLODIPINE BESYLATE 5 MG ORAL TABS Take 1 tab po daily AMLODIPINE BESYLATE 49424430566 No Longer Active Nettie Newberry APRN Active MECLIZINE HCL 25 MG TAB 1 tablet three times daily for 3 days, then 1/2 tab three times daily for 3 days. MECLIZINE HCL 35124441165 No Longer Active Nettie Newberry APRN Active AMITRIPTYLINE HCL 25 MG ORAL TABS 1 q hs prn AMITRIPTYLINE HCL 76617157439 No Longer Active Nettie Newberry APRN Active DILAUDID 2 MG ORAL TABS Take 1/2 tab po every 4 hours as needed for pain 2014 HYDROMORPHONE HCL 05373905003 No Longer Active Nettie Newberry APRN Active CLOPIDOGREL BISULFATE 75 MG ORAL TABS 1 tab by mouth once daily CLOPIDOGREL BISULFATE 51993225012 Active Harinder Hernandez DO Active ATORVASTATIN CALCIUM 10 MG ORAL TABS 1 at bedtime ATORVASTATIN CALCIUM 84294887727 Active Tawnya Pardo MA Active LOVASTATIN 40 MG ORAL TABS Take 1 tab po every hs LOVASTATIN 51735801503 No Longer Active Harinder W David DO Active PREDNISONE 20 MG TAB 2 tabs daily for 4 days, 1 tab daily for 4 days, 1/2 tab daily for 4 days PREDNISONE 35484503345 No Longer Active Harinder Hernandez DO Active LEVAQUIN 500 MG ORAL TABS Take 1 tab po daily x 8 days LEVOFLOXACIN 41203491872 No Longer Active Harinder Hernandez DO Active VENTOLIN HFA 108 (90 BASE) MCG/ACT AERS 2 -4 puffs four times a day PRN 2013 ALBUTEROL SULFATE 19299243200 No Longer Active Jeri Sosa RPT,RMA Active ACEBUTOLOL HCL 200 MG CAPS 1 cap in the morning and 2 caps in the evening ACEBUTOLOL HCL 27720737561 No Longer Active Harinder Hernandez DO Active CEFDINIR 300 MG ORAL CAPS take 1 cap po bid x 10 days CEFDINIR 82476950243 No Longer Active Harinder Hernandez DO Active LOVASTATIN 40 MG TABS 1 pill by mouth nightly for cholesterol LOVASTATIN 39373640608 No Longer Active Nettie Newberry APRN Active NITROSTAT 0.4 MG SUBL 1 tab under tongueas needed for chest pain ( may take 3 total, 5 min apart, then call 911) NITROGLYCERIN 93433127509 No Longer Active Nettie Newberry APRN Active POTASSIUM CHLORIDE CR 10 MEQ CPCR 1 capsule by mouth daily 02/14 POTASSIUM CHLORIDE 78092981048 No Longer Active Nettie Newberry APRN Active TESSALON PERLES 100 MG CAP 1 to 2 tablets by mouth 3 times daily as needed for cough BENZONATATE 31921350012 No Longer Active Nettie Newberry APRN Active THEOPHYLLINE ER 200 MG ORAL [id number] Take 1 tab every 12 hours THEOPHYLLINE 38637737008 Active Tawnya Pardo MA Active PREDNISONE 20 MG TAB 2 po qd x 5 days PREDNISONE 43532024583 No Longer Active Jae Morgan MD Active AZITHROMYCIN 250 MG TABS 2 po qd x 1 day, then 1 po qd x 4 days AZITHROMYCIN 12026873715 No Longer Active Jae Morgan MD Active PREDNISONE 20 MG TAB 1 tab twice daily for 3 day, then one daily for three days PREDNISONE 28316062618 No Longer Active Jae Morgan MD Active SINGULAIR 10 MG TABS 1 pill by mouth every evening for breathing. MONTELUKAST SODIUM 02971087562 Active Tawnya Pardo MA Active TYLENOL 325 MG TAB 3 by mouth q4h as needed ACETAMINOPHEN 95348457655 Active Harinder Hernandez DO Active POTASSIUM CHLORIDE ER 10 MEQ CR-TABS take 1 tab po daily POTASSIUM CHLORIDE 54169171364 No Longer Active Harinder Hernandez DO Active PREDNISONE 20 MG TAB 1 TID x 2 days, then 1 BID x 3 days, then 1 Daily x 3 days, then stop PREDNISONE 50578441735 No Longer Active Jillina Frazell [employer]PORATE SCHEDULER Active LEVAQUIN 500 MG TAB 1 tablet by mouth daily LEVOFLOXACIN 12272384490 No Longer Active Jillina Frazell CORPORATE SCHEDULER Active NEURONTIN 300 MG CAP 1 cap by mouth three times daily for restless leg 06/22 GABAPENTIN 19577021644 No Longer Active Harinder Hernandez DO Active BENZONATATE 100 MG CAPS 1 cap po TID PRN BENZONATATE 84947509418 No Longer Active Harinder Hernandez DO Active MONTELUKAST SODIUM 10 MG TABS 1 tab po in the evening MONTELUKAST SODIUM 65116854571 No Longer Active Harinder Hernandez DO Active MUPIROCIN 2 % OINT apply to affected area BID x 14 days MUPIROCIN 98639178743 No Longer Active Harinder Hernandez DO Active TYLENOL EXTRA STRENGTH 500 MG TABS as needed ACETAMINOPHEN 62845710020 No Longer Active Harinder Hernandez DO Active PREDNISONE 10 MG TABS 1 tab po daily PREDNISONE 85210210336 No Longer Active Harinder Hernandez DO Active PREDNISONE 20 MG TAB 2 tabs daily for 4 days, 1 tab daily for 4 days, 1/2 tab daily for 4 days PREDNISONE 05787560956 No Longer Active Harinder Hernandez DO Active AZITHROMYCIN 250 MG TABS 2 po qd x 1 day, then 1 po qd x 4 days AZITHROMYCIN 08020306427 No Longer Active Harinder Hernandez DO Active PREDNISONE 20 MG TAB 3 tabs today, then 1 tab twice daily for 3 day, then one daily for three days PREDNISONE 41479691010 No Longer Active Harinder Hernandez DO Active NIFEDIAC CC 30 MG [id number] 1 tablet daily for raynaud's syndrome NIFEDIPINE 65769161880 No Longer Active Tawnya Pardo MA Active AMBIEN 10 MG TAB 1/2 tab by mouth at bedtime as needed for sleep ZOLPIDEM TARTRATE 90172986499 Active Ciera Pimentel Active CLONAZEPAM 1 MG TABS 1 tablet at bedtime for insomnia and restless legs 09/14 CLONAZEPAM 38309165972 Active Harinder Hernandez DO Active CLONAZEPAM 0.5 MG TABS 1 tab po daily CLONAZEPAM 68051470250 No Longer Active Harinder Hernandez DO Active PREDNISONE 10 MG TAB 1 tablet daily for COPD PREDNISONE 87745694360 Active Ciera Pimentel Active PROAIR HFA 108 (90 BASE) MCG/ACT AERS 2 puffs four times a day as needed 2012 ALBUTEROL SULFATE 80563343510 Active Harinder Hernandez DO Active FLOVENT HFA 110 MCG/ACT AERO 2 puffs inhaled b.i.d. FLUTICASONE PROPIONATE HFA 72247319195 Active Kortney Mccain Active ACIPHEX 20 MG TBEC 1 tab po daily RABEPRAZOLE SODIUM 95674806982 Active Kaylah Newberry Active CLONAZEPAM 0.5 MG TABS 1 tab po daily CLONAZEPAM 0.5 MG TABS 025376 CLONAZEPAM Inactive PREDNISONE 20 MG TAB 3 tabs today, then 1 tab twice daily for 3 day, then one daily for three days PREDNISONE 20 MG TAB 817525 PREDNISONE Inactive PREDNISONE 20 MG TAB 2 tabs daily for 4 days, 1 tab daily for 4 days, 1/2 tab daily for 4 days PREDNISONE 20 MG TAB 004025 PREDNISONE Inactive PREDNISONE 10 MG TABS 1 tab po daily PREDNISONE 10 MG TABS 374349 PREDNISONE Inactive TYLENOL EXTRA STRENGTH 500 MG TABS as needed TYLENOL EXTRA STRENGTH 500 MG TABS 854269 ACETAMINOPHEN Inactive MUPIROCIN 2 % OINT apply to affected area BID x 14 days MUPIROCIN 2 % OINT 321822 MUPIROCIN Inactive MONTELUKAST SODIUM 10 MG TABS 1 tab po in the evening MONTELUKAST SODIUM 10 MG TABS 647851 MONTELUKAST SODIUM Inactive BENZONATATE 100 MG CAPS 1 cap po TID PRN BENZONATATE 100 MG CAPS 133035 BENZONATATE Inactive NEURONTIN 300 MG CAP 1 cap by mouth three times daily for restless leg 06/22 NEURONTIN 300 MG CAP 025460 GABAPENTIN Inactive LEVAQUIN 500 MG TAB 1 tablet by mouth daily LEVAQUIN 500 MG TAB 782084 LEVOFLOXACIN Inactive PREDNISONE 20 MG TAB 1 TID x 2 days, then 1 BID x 3 days, then 1 Daily x 3 days, then stop PREDNISONE 20 MG TAB 248407 PREDNISONE Inactive POTASSIUM CHLORIDE ER 10 MEQ CR-TABS take 1 tab po daily POTASSIUM CHLORIDE ER 10 MEQ CR-TABS POTASSIUM CHLORIDE Inactive PREDNISONE 20 MG TAB 1 tab twice daily for 3 day, then one daily for three days PREDNISONE 20 MG TAB 914025 PREDNISONE Inactive TESSALON PERLES 100 MG CAP 1 to 2 tablets by mouth 3 times daily as needed for cough TESSALON PERLES 100 MG CAP 364226 BENZONATATE Inactive POTASSIUM CHLORIDE CR 10 MEQ CPCR 1 capsule by mouth daily 02/14 POTASSIUM CHLORIDE CR 10 MEQ CPCR POTASSIUM CHLORIDE Inactive NITROSTAT 0.4 MG SUBL 1 tab under tongueas needed for chest pain ( may take 3 total, 5 min apart, then call 911) NITROSTAT 0.4 MG SUBL 461421 NITROGLYCERIN Inactive LOVASTATIN 40 MG TABS 1 pill by mouth nightly for cholesterol LOVASTATIN 40 MG TABS 779331 LOVASTATIN Inactive CEFDINIR 300 MG ORAL CAPS take 1 cap po bid x 10 days CEFDINIR 300 MG ORAL CAPS 371430 CEFDINIR Inactive ACEBUTOLOL HCL 200 MG CAPS 1 cap in the morning and 2 caps in the evening ACEBUTOLOL HCL 200 MG CAPS 805833 ACEBUTOLOL HCL Inactive VENTOLIN HFA 108 (90 BASE) MCG/ACT AERS 2 -4 puffs four times a day PRN 2013 VENTOLIN HFA 108 (90 BASE) MCG/ACT AERS ALBUTEROL SULFATE Inactive LEVAQUIN 500 MG ORAL TABS Take 1 tab po daily x 8 days LEVAQUIN 500 MG ORAL TABS 588746 LEVOFLOXACIN Inactive PREDNISONE 20 MG TAB 2 tabs daily for 4 days, 1 tab daily for 4 days, 1/2 tab daily for 4 days PREDNISONE 20 MG TAB 290895 PREDNISONE Inactive LOVASTATIN 40 MG ORAL TABS Take 1 tab po every hs LOVASTATIN 40 MG ORAL TABS 484795 LOVASTATIN Inactive DILAUDID 2 MG ORAL TABS Take 1/2 tab po every 4 hours as needed for pain 2014 DILAUDID 2 MG ORAL TABS 295482 HYDROMORPHONE HCL Inactive AMITRIPTYLINE HCL 25 MG ORAL TABS 1 q hs prn AMITRIPTYLINE HCL 25 MG ORAL TABS 990170 AMITRIPTYLINE HCL Inactive MECLIZINE HCL 25 MG TAB 1 tablet three times daily for 3 days, then 1/2 tab three times daily for 3 days. MECLIZINE HCL 25 MG TAB 299044 MECLIZINE HCL Inactive AMLODIPINE BESYLATE 5 MG ORAL TABS Take 1 tab po daily AMLODIPINE BESYLATE 5 MG ORAL TABS 834686 AMLODIPINE BESYLATE Inactive TOPIRAMATE 25 MG TABS 1 tab po BID TOPIRAMATE 25 MG TABS 712513 TOPIRAMATE Inactive PREDNISONE 20 MG TAB 1 tablet twice daily for 2 days, then 1 tablet once daily for 2 days PREDNISONE 20 MG TAB 873496 PREDNISONE Inactive PREDNISONE 20 MG TAB 1 tab twice daily for 3 day, then one daily for three days PREDNISONE 20 MG TAB 910132 PREDNISONE Inactive NIFEDIPINE ER 30 MG ORAL [id number] 1 daily NIFEDIPINE ER 30 MG ORAL [id number] NIFEDIPINE Inactive AMLODIPINE BESYLATE 5 MG TABS 1 tablet by mouth daily AMLODIPINE BESYLATE 5 MG TABS 148430 AMLODIPINE BESYLATE Inactive AZITHROMYCIN 250 MG TABS 2 po qd x 1 day, then 1 po qd x 4 days AZITHROMYCIN 250 MG TABS 2862436 AZITHROMYCIN Inactive AZITHROMYCIN 250 MG TABS 2 po qd x 1 day, then 1 po qd x 4 days AZITHROMYCIN 250 MG TABS 3635630 AZITHROMYCIN Inactive PREDNISONE 20 MG TAB 2 po qd x 5 days PREDNISONE 20 MG TAB 704830 PREDNISONE Inactive Vital Signs Date Name Value Unit Range Description blood pressure, diastolic - 8462-4 67 mm[Hg] BP adan blood pressure, systolic - 8480-6 110 mm[Hg] BP sys height E&M - 8302-2 64 [in_us] Bdy height pulse rate E&M - 8867-4 72 /min Heart rate temperature E&M 97.4 [degF] Body temperature weight E&M - 3141-9 138 [lb_av] Weight Measured blood pressure, diastolic - 8462-4 71 mm[Hg] BP adan blood pressure, systolic - 8480-6 116 mm[Hg] BP sys height E&M - 8302-2 64 [in_us] Bdy height pulse rate E&M - 8867-4 78 /min Heart rate temperature E&M 97.6 [degF] Body temperature weight E&M - 3141-9 137 [lb_av] Weight Measured blood pressure, diastolic - 8462-4 61 mm[Hg] BP adan blood pressure, systolic - 8480-6 96 mm[Hg] BP sys pulse rate E&M - 8867-4 69 /min Heart rate temperature E&M 97.9 [degF] Body temperature weight E&M - 3141-9 124 [lb_av] Weight Measured blood pressure, diastolic - 8462-4 63 mm[Hg] [...] E&M - 3141-9 128 [lb_av] Weight Measured Diagnostic Results Date Name Value Unit Range Description Lab Report: Basic Metabolic Panel - Chemistry sodium, serum 137 mmol/L 229-313 3419/01/03 potassium, serum 3.4 mmol/L 3.5-5.2 chloride, serum 102 mmol/L 98-107 carbon dioxide, venous blood 29.2 mmol/L 21.0-32.0 blood glucose 87 mg/dL 65-110 calcium, serum 8.5 mg/dL 8.5-10.1 urea nitrogen, blood 8 mg/dL 7-18 creatinine, serum 0.82 mg/dL 0.55-1.30 Lab Report: CBC - Hematology leukocyte count, [...] Panel, Comp. Metabolic Panel, Magnesium - Chemistry carbon dioxide, venous blood 27.4 mmol/L 21.0-32.0 potassium, serum 3.7 mmol/L 3.5-5.2 chloride, serum 105 mmol/L 98-107 blood glucose 89 mg/dL 65-110 urea nitrogen, blood 9 mg/dL 7-18 creatinine, serum 0.91 mg/dL 0.55-1.30 alanine aminotransferase (SGPT), serum 22 U/L 12-78 aspartate aminotransferase (SGOT), serum 21 U/L 15-37 calcium, serum 8.6 mg/dL 8.5-10.1 bilirubin, serum, total 0.40 mg/dL 0.00-1.00 sodium, serum 142 mmol/L 662-603 1675/08/08 LDL cholesterol, serum 96 mg/dL 0-130 HDL cholesterol, serum 66 mg/dL 32-96 triglyceride, serum, fasting 92 mg/dL 30-200 cholesterol, serum 180 mg/dL 130-200 Lab Report: MICROALB/CREAT W/RATIO - Chemistry albumin/creatinine ratio, urine < 30 mg/g mg/g{creat} 0-29 Lab Report: MICROALB/CREAT W/RATIO - Lab microalbumin, urine 10 0-19 Lab Report: THEOPHYLLINE - Toxicology theophylline level, serum <2.5 mg/L ug/mL 10.0-20.0 Encounters Code Encounter Date Provider Facility CPT-77314 Level 3 Est. Patient 11:30:05 CDT Harinder Hernandez [facility] CPT-75209 Level 4 Est. Patient 10:19:23 CDT Harinder Hernandez [facility] CPT-94128 Level 3 Est. Patient 09:58:58 CDT Harinder Cr [facility] CPT-14835 Level 3 Est. Patient 12:37:21 CDT Harinder Cr David [facility] CPT-40551 Level 3 Est. Patient 18:37:17 CDT Harinder Hernandez [facility] CPT-49945 Level 4 Est. Patient 11:15:54 CDT Nettie Newberry APRN [facility] CPT-73290 Level 3 Est. Patient 16:42:24 CDT Harinder Shaye David [facility] CPT-12275 Level 3 Est. Patient 15:03:36 CDT Harinder Hernandez [facility] CPT-22305 Level 3 Est. Patient 15:03:20 CDT Harinder Cr David [facility] CPT-82839 Level 3 Est. Patient 12:14:34 CDT Harinder Hernandez [facility] CPT-21850 Level 3 Est. Patient 13:47:15 CDT Harinder Cr David [facility] CPT-21076 Level 3 Est. Patient 14:08:24 CDT Harinder Hernandez [facility] CPT-08098 Level 3 Est. Patient 10:07:15 CDT Harinder Hernandez [facility] CPT-16556 Level 3 Est. Patient 10:06:59 CDT Harinder Cr David [facility] CPT-87684 Level 3 Est. Patient 15:53:29 CDT Jae Morgan MD [facility] CPT-90968 Level 3 Est. Patient 17:19:04 CDT Harinder Hernandez [facility] CPT-42462 Level 3 Est. Patient 11:13:01 CDT Harinder Hernandez [facility] CPT-57367 Level 3 Est. Patient 09:03:58 CDT Harinder Hernandez [facility] CPT-81246 Level 3 Est. Patient 14:46:45 [employer]ATCH [employer]SEMBLER Harinder Cr [facility] CPT-57692 Level 3 Est. Patient 09:35:49 [employer] WATCH ASSEMBLER Harinder Cr [facility] CPT-54685 Level 3 Est. Patient 09:29:37 [employer] WATCH ASSEMBLER Harinder Hernandez [facility] CPT-89998 Level 3 Est. Patient 15:51:07 CDT Harinder Hernandez [facility] CPT-51561 Level 3 Est. Patient 18:13:13 CDT Harinder Hernandez [facility] CPT-44029 Level 3 Est. Patient 10:44:19 CDT Harinder Cr [facility] CPT-61639 Level 4 Est. Patient 10:07:19 [employer]ITAL WATCH ASSEMBLER Harinder Cr [facility] CPT-66513 Level 3 Est. Patient 15:59:32 [employer] WATCH ASSEMBLER Harinder Cr [facility] Procedures Code Procedure Name Date Entry Date Standard Description CPT-99215 Hip, complete, 2-3 views - XRAY USE ONLY 10:28:40 CDT CPT-63262 BMP - LAB USE ONLY 16:45:09 [employer]ATCH [employer]ER CPT-10362 Port a cath flush 12:00:13 [employer] WATCH [employer]SEMBLER CPT-TCMM Transitional Care Mgmt-Moderate 11:20:16 [employer] WATCH [employer]SEMBLER CPT-74692 First Vx - Ix admin for Medicare patients 17:35:15 CDT CPT-76538 Fluzone Preservative Free Intramuscular Suspension 17:35 :15 CDT CPT-58521 Microalbumin - LAB USE ONLY 11:52:05 CDT CPT-TCMM Transitional Care Mgmt-Moderate 11:33:57 CDT CPT-46727 No Charge Offi Visit 14:11:29 CDT CPT-91026 Magnesium - LAB USE ONLY 10:45:44 CDT CPT-90944 Lipid - LAB USE ONLY 10:45:44 CDT CPT-21102 CBC - LAB USE ONLY 10:45:44 CDT CPT-73813 Venipuncture Draw Fee 10:45:43 CDT CPT-74658 Venipuncture Draw Fee 18:21:27 CDT CPT-JTINJ Asp/Joint Injection 18:38:04 CDT CPT-84724 Immunization Each Additional Inj 17:38:04 CDT CPT-63602 Immunization Single Admin 17:38:04 CDT CPT-84376 Prevnar 13 17:38:04 CDT CPT-66751 Fluzone Quadrivalent preservative free (>=3yrs.) 17:38: 04 CDT CPT-98270 No Charge Offi Visit 11:14:03 CDT CPT-17398 Chest 2V Frontal and Lat 14:00:18 CDT CPT-OV Office Visit 16:10:28 CDT CPT-JTINJ Asp/Joint Injection 09:03:57 CDT CPT-Cryo Cryotherapy 09:35:49 [employer] WATCH ASSEMBLER CPT-JTINJ Asp/Joint Injection 09:34:45 [employer] WATCH ASSEM[employer]ER CPT-J2930 Solu Medrol 125 mg (Methyl Prednisolone Sodium Succinate) 20:37:27 CDT CPT-75093 Abx/Therapy Injection 20:37:27 CDT CPT-11949 Port a cath flush 08:15:51 CDT CPT-93602 Port a cath flush 09:54:16 CDT [facility]-09123 Port a cath flush 09:38:02 CDT [facility]-36873 Port a cath flush 11:00:27 D[employer] WATCH ASSEM[employer]ER
[2017-12-28] MEDS ORDERED: RT-epiNEPHrine (RACEMIC) 2.25% 0.5 ML VIAL ONE (23:48)
--- OUTSIDE RECORDS SUMMARY | 2017-12-28 23:48 | XMS REPORT | Clinical Summary ---
Author Author Admin, QIE Organization [facility] [employer] Address Unknown Phone Unavailable Allergies, Adverse Reactions, [...] DO Insomnia , unspecified Raynaud's syndrome 443.0 Resolved Jeri Nieto Raynaud's syndrome Sacroiliitis, right 720.2 Resolved Harinder [...] Nettie Newberry APRN Venous (peripheral) insufficiency, unspecified Greater trochanteric bursitis, left 726.5 Active Harinder Hernandez DO Enthesopathy of hip region Diarrhea, acute 787.91 Resolved Jeri Sosa Scribe Diarrhea URI 465.9 Resolved Jeri Sosa Scribe Acute upper respiratory infections of unspecified site Weakness, muscle 728.87 Active Harinder Hernandez DO Muscle weakness (generalized) CVA with right hemiparesis 438.20 Active Harinder Hernandez DO 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 Diarrhea, chronic 787.91 Active Harinder Hernandez DO Diarrhea Reflux, esophageal 530.81 Active Harinder Hernandez DO Esophageal reflux Hypokalemia 276.8 Active Harinder Hernandez DO Hypopotassemia Hip pain, left 719.45 Resolved Jeri Sosa Scribe Pain in joint involving pelvic region and thigh Raynaud's syndrome 443.0 Active Harinder Hernandez DO Raynaud's syndrome Edema leg 782.3 Resolved Jeri Sosa Scribdanae Edema Tendonitis 726.90 Active Harinder Hernandez DO Enthesopathy of unspecified site Anxiety depression 300.4 Active Harinder Hernandez DO Dysthymic disorder Abdominal pain 789.00 Resolved Jeri Lariosibe Abdominal pain, unspecified site Right leg pain 729.5 Resolved Jeri Sosa Scribe Pain in limb Viral upper respiratory tract infection 465.9 Resolved Jeri Lariosibe Acute upper respiratory infections of unspecified site U R I 465.9 Resolved Harinder Hernandez DO Acute upper respiratory infections of unspecified site Gastroenteritis, viral, acute 008.8 Resolved Harinder Hernandez DO Intestinal infection due to other organism, not elsewhere classified Weakness 780.79 Active Jeri Nieto Other malaise and fatigue Wellness exam V70.0 Active Harinder Hernandez DO Routine general medical examination at a health care facility Breast mass, right ICD-611.72 Inactive Harinder Hernandez DO Encounter for fitting and adjustment of vascular catheter ICD-V58.81 Inactive Harinder Hernandez DO Back pain, lumbar ICD-724.2 Inactive Harinder Hernandez DO Insomnia ICD-780.52 Inactive Harinder Hernandez DO Raynaud's syndrome ICD-443.0 Inactive Kortney Mccain Sacroiliitis, right ICD-720.2 Inactive Harinder Hernandez DO [...] Harinder Hernandez DO Bacteremia ICD-790.7 Inactive Harinder Shaye David DO 10/02 Clostridium difficile colitis ICD-008.45 Inactive Harinder W David DO Abdominal pain, right lower quadrant ICD-789.03 Inactive Harinder Cr David DO Needs vaccination for influenza ICD-V04.81 Inactive Harinder W David DO Need for prophylactic vaccination against streptococcus pneumoniae ( Pneumococcus) ICD-V03.82 Inactive Harinder Cr David DO Greater trochanteric bursitis, left ICD-726.5 Inactive Harinder Shaye David DO Diarrhea, acute ICD-787.91 Inactive Kortney Mccain URI ICD-465.9 Inactive Kortney Mccain Hip pain, left ICD-719.45 Inactive Kortney Mccain Edema leg ICD-782.3 Inactive Kortney Mccain 08/22 Abdominal pain ICD-789.00 Inactive Kortney Mccain Right leg pain ICD-729.5 Inactive Kortney Mccain Viral upper respiratory tract infection ICD-465.9 Inactive Kortney Mccain U R I ICD-465.9 Inactive Meenu Alejo LPN Gastroenteritis, viral, acute ICD-008.8 Inactive Meenu Alejo LPN Medication List Medication Instructions Start Date Stop Date Generic Name NDC Status Provider Patient Instruction SPIRONOLACTONE 25 MG ORAL TABLET 1 tablet by mouth daily SPIRONOLACTONE 20193155655 No Longer Active Jeri Nieto Active PREDNISONE 20 MG ORAL TABLET 2 tablets by mouth today, then 1 tablet by mouth days 2-3 PREDNISONE 89718188032 No Longer Active Jeri Nieto Active NITROSTAT 0.4 MG SUBLINGUAL TABLET SUBLINGUAL 1 tab SL q5min PRN chest pain NITROGLYCERIN 96093505035 Active Meenu Alejo LPN Active THEOPHYLLINE ER 300 MG ORAL TABLET EXTENDED RELEASE 12 HOUR 1 po BID THEOPHYLLINE 60452904393 Active Kortney Mccain Active POTASSIUM CHLORIDE ER 20 MEQ ORAL TABLET EXTENDED RELEASE 1 po q day POTASSIUM CHLORIDE 32302828473 Active Kortney Mccain Active POTASSIUM CHLORIDE 20 MEQ ORAL PACKET 1 tab po q day POTASSIUM CHLORIDE 75520588377 No Longer Active Kortney Mccain Active POTASSIUM CHLORIDE ER 10 MEQ ORAL CAPSULE EXTENDED RELEASE 1 capsule BID 2016 POTASSIUM CHLORIDE 20406441487 No Longer Active Kortney Mccain Active LASIX 20 MG ORAL TABLET 1 tablet by mouth every morning FUROSEMIDE 25338618720 No Longer Active Kortney Mccain Active FLUOXETINE HCL 10 MG ORAL CAPSULE 1 po qd for depression/anxiety FLUOXETINE HCL 50136664935 Active Meenu Alejo LPN Active VOLTAREN 1 % TRANSDERMAL GEL apply q 6-8 hour to left arm as needed for pain DICLOFENAC SODIUM 47014077426 Active Kortney Mccain Active ALBUTEROL SULFATE (2.5 MG/3ML) 0.083% INHALATION NEBULIZATION SOLUTION 1 vial neb q 4hrs for severe asthma. imperative to have this agent ALBUTEROL SULFATE 69894987806 Active Ciera Pimentel Active NIFEDIAC CC 30 MG ORAL TABLET EXTENDED RELEASE 24 HOUR 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 NIFEDIPINE 20432948801 Active Kortney Mccain Active AMLODIPINE BESYLATE 5 MG ORAL TABLET 1 tablet by mouth daily 2016 AMLODIPINE BESYLATE 02818687318 No Longer Active Harinder Hernandez DO Active TOPAMAX 25 MG ORAL TABLET 1 tab po BID TOPIRAMATE 65499603343 Active Kortney Mccain Active FLUTICASONE PROPIONATE 50 MCG/ACT NASAL SUSPENSION 2 sprays per nostril daily PRN Allergies FLUTICASONE PROPIONATE 64984670395 Active Meenu Alejo LPN Active NIFEDIPINE ER 30 MG ORAL TABLET EXTENDED RELEASE 24 HOUR 1 daily NIFEDIPINE 46675865574 No Longer Active Harinder Hernandez DO Active FLOVENT HFA 110 MCG/ACT INHALATION AEROSOL 2 puffs inhaled b.i.d. FLUTICASONE PROPIONATE HFA 16975420692 Active Harinder Hernandez DO Active EPIPEN 2-BRUNA 0.3 MG/0.3ML INJECTION SOLUTION AUTO-INJECTOR 1 INJ NEEDED EPINEPHRINE 75206176271 Active Meenu Alejo LPN Active PREDNISONE 20 MG ORAL TABLET 1 tab twice daily for 3 day, then one daily for three days PREDNISONE 28532998349 No Longer Active Harinder Hernandez DO Active PREDNISONE 20 MG ORAL TABLET 1 tablet twice daily for 2 days, then 1 tablet once daily for 2 days PREDNISONE 77880759435 No Longer Active Harinder Hernandez DO Active ASMANEX 120 METERED DOSES 220 MCG/INH INHALATION AEROSOL POWDER BREATH ACTIVATED 2 puffs orally twice daily MOMETASONE FUROATE 24500409063 Active Jeri Sosa LPN Active TOPIRAMATE 25 MG ORAL TABLET 1 tab po BID TOPIRAMATE 08688917515 No Longer Active Nettie Newberry APRN Active AMLODIPINE BESYLATE 5 MG ORAL TABLET Take 1 tab po daily AMLODIPINE BESYLATE 36515086162 No Longer Active Nettie Newberry APRN Active MECLIZINE HCL 25 MG ORAL TABLET 1 tablet three times daily for 3 days, then 1/ 2 tab three times daily for 3 days. MECLIZINE HCL 95341562669 No Longer Active Nettie Newberry APRN Active AMITRIPTYLINE HCL 25 MG ORAL TABLET 1 q hs prn AMITRIPTYLINE HCL 64520327527 No Longer Active Nettie Newberry APRN Active DILAUDID 2 MG ORAL TABLET Take 1/2 tab po every 4 hours as needed for pain HYDROMORPHONE HCL 96212739612 No Longer Active Nettie Newberry APRN Active CLOPIDOGREL BISULFATE 75 MG ORAL TABLET 1 tab by mouth once daily CLOPIDOGREL BISULFATE 30041338272 Active Meenu Alejo LPN Active ATORVASTATIN CALCIUM 10 MG ORAL TABLET 1 at bedtime ATORVASTATIN CALCIUM 25349052229 Active Kortney Mccain Active LOVASTATIN 40 MG ORAL TABLET Take 1 tab po every hs LOVASTATIN 24701341908 No Longer Active Harinder Hernandez DO Active PREDNISONE 20 MG ORAL TABLET 2 tabs daily for 4 days, 1 tab daily for 4 days, 1/2 tab daily for 4 days PREDNISONE 70471424490 No Longer Active Harinder Hernandez DO Active LEVAQUIN 500 MG ORAL TABLET Take 1 tab po daily x 8 days LEVOFLOXACIN 58732469699 No Longer Active Harinder Hernandez DO Active VENTOLIN HFA 108 (90 Base) MCG/ACT INHALATION AEROSOL SOLUTION 2 -4 puffs four times a day PRN ALBUTEROL SULFATE 28550633298 No Longer Active Jeri Sosa LPN Active ACEBUTOLOL HCL 200 MG ORAL CAPSULE 1 cap in the morning and 2 caps in the evening ACEBUTOLOL HCL 90290047727 No Longer Active Harinder Hernandez DO Active CEFDINIR 300 MG ORAL CAPSULE take 1 cap po bid x 10 days CEFDINIR 62187437541 No Longer Active Harinder Hernadnez DO Active LOVASTATIN 40 MG ORAL TABLET 1 pill by mouth nightly for cholesterol LOVASTATIN 11666111155 No Longer Active Nettie Newberry APRN Active NITROSTAT 0.4 MG SUBLINGUAL TABLET SUBLINGUAL 1 tab under tongueas needed for chest pain ( may take 3 total, 5 min apart, then call 911) NITROGLYCERIN 95834923089 No Longer Active Nettie Newberry APRN Active POTASSIUM CHLORIDE ER 10 MEQ ORAL CAPSULE EXTENDED RELEASE 1 capsule by mouth daily POTASSIUM CHLORIDE 63621165755 No Longer Active Nettie Newberry APRN Active TESSALON PERLES 100 MG ORAL CAPSULE 1 to 2 tablets by mouth 3 times daily as needed for cough BENZONATATE 92872459808 No Longer Active Nettie Newberry APRN Active PREDNISONE 20 MG ORAL TABLET 2 po qd x 5 days PREDNISONE 17829678603 No Longer Active Jae Morgan MD Active AZITHROMYCIN 250 MG ORAL TABLET 2 po qd x 1 day, then 1 po qd x 4 days 12/30 AZITHROMYCIN 62709339554 No Longer Active Jae Morgan MD Active PREDNISONE 20 MG ORAL TABLET 1 tab twice daily for 3 day, then one daily for three days PREDNISONE 16147725718 No Longer Active Jae Morgan MD Active SINGULAIR 10 MG ORAL TABLET 1 pill by mouth every evening for breathing. 2014 MONTELUKAST SODIUM 94600387915 Active Meenu Alejo LPN Active TYLENOL 325 MG ORAL TABLET 3 by mouth q4h as needed ACETAMINOPHEN 22518320106 Active Harinder Hernandez DO Active POTASSIUM CHLORIDE ER 10 MEQ ORAL TABLET EXTENDED RELEASE take 1 tab po daily POTASSIUM CHLORIDE 10691760888 No Longer Active Harinder Hernandez DO Active PREDNISONE 20 MG ORAL TABLET 1 TID x 2 days, then 1 BID x 3 days, then 1 Daily x 3 days, then stop PREDNISONE 83586322362 No Longer Active Jillina Frazellor MCCRAY Active LEVAQUIN 500 MG ORAL TABLET 1 tablet by mouth daily LEVOFLOXACIN 88183788618 No Longer Active Jillina Frazell BATT MACHINE OPERATOR Active NEURONTIN 300 MG ORAL CAPSULE 1 cap by mouth three times daily for restless leg GABAPENTIN 22180772931 No Longer Active Harinder Hernandez DO Active BENZONATATE 100 MG ORAL CAPSULE 1 cap po TID PRN BENZONATATE 40764823472 No Longer Active Harinder Hernandez DO Active MONTELUKAST SODIUM 10 MG ORAL TABLET 1 tab po in the evening 2014 MONTELUKAST SODIUM 17554506761 No Longer Active Harinder Hernandez DO Active MUPIROCIN 2 % EXTERNAL OINTMENT apply to affected area BID x 14 days MUPIROCIN 08884324317 No Longer Active Harinder Hernandez DO Active TYLENOL EXTRA STRENGTH 500 MG ORAL TABLET as needed ACETAMINOPHEN 88590014286 No Longer Active Harinder Hernandez DO Active PREDNISONE 10 MG ORAL TABLET 1 tab po daily PREDNISONE 44507385078 No Longer Active Harinder Hernandez DO Active PREDNISONE 20 MG ORAL TABLET 2 tabs daily for 4 days, 1 tab daily for 4 days, 1/2 tab daily for 4 days PREDNISONE 36128105784 No Longer Active Harinder Hernandez DO Active AZITHROMYCIN 250 MG ORAL TABLET 2 po qd x 1 day, then 1 po qd x 4 days 04/06 AZITHROMYCIN 80466737733 No Longer Active Harinder Hernandez DO Active PREDNISONE 20 MG ORAL TABLET 3 tabs today, then 1 tab twice daily for 3 day, then one daily for three days PREDNISONE 62750605378 No Longer Active Harinder Hernandez DO Active NIFEDIAC CC 30 MG ORAL TABLET EXTENDED RELEASE 24 HOUR 1 tablet daily for raynaud's syndrome NIFEDIPINE 24654413362 No Longer Active Tawnya Pardo MA Active AMBIEN 10 MG ORAL TABLET 1/2 tab by mouth at bedtime as needed for sleep 2013 ZOLPIDEM TARTRATE 06555789666 Active Meenu Alejo LPN Active CLONAZEPAM 1 MG ORAL TABLET 1 tablet at bedtime for insomnia and restless legs CLONAZEPAM 18280223456 Active Meenu Alejo LPN Active CLONAZEPAM 0.5 MG ORAL TABLET 1 tab po daily CLONAZEPAM 49739184642 No Longer Active Harinder Hernandez DO Active PREDNISONE 10 MG ORAL TABLET 1 tablet daily for COPD PREDNISONE 13804571292 Active Kortney Mccain Active PROAIR HFA 108 (90 Base) MCG/ACT INHALATION AEROSOL SOLUTION 2 puffs four times a day as needed ALBUTEROL SULFATE 45595661774 Active Harinder Hernandez DO Active FLOVENT HFA 110 MCG/ACT INHALATION AEROSOL 2 puffs inhaled b.i.d. FLUTICASONE PROPIONATE HFA 11243001813 Active Kortney Mccain Active ACIPHEX 20 MG ORAL TABLET DELAYED RELEASE 1 tab po daily RABEPRAZOLE SODIUM 60909234383 Active Meenu Alejo LPN Active CLONAZEPAM 0.5 MG ORAL TABLET 1 tab po daily CLONAZEPAM 0.5 MG ORAL TABLET 209182 CLONAZEPAM Inactive PREDNISONE 20 MG ORAL TABLET 3 tabs today, then 1 tab twice daily for 3 day, then one daily for three days PREDNISONE 20 MG ORAL TABLET 391980 PREDNISONE Inactive PREDNISONE 20 MG ORAL TABLET 2 tabs daily for 4 days, 1 tab daily for 4 days, 1/2 tab daily for 4 days PREDNISONE 20 MG ORAL TABLET 304537 PREDNISONE Inactive PREDNISONE 10 MG ORAL TABLET 1 tab po daily PREDNISONE 10 MG ORAL TABLET 008749 PREDNISONE Inactive TYLENOL EXTRA STRENGTH 500 MG ORAL TABLET as needed TYLENOL EXTRA STRENGTH 500 MG ORAL TABLET 454908 ACETAMINOPHEN Inactive MUPIROCIN 2 % EXTERNAL OINTMENT apply to affected area BID x 14 days MUPIROCIN 2 % EXTERNAL OINTMENT 506011 MUPIROCIN Inactive MONTELUKAST SODIUM 10 MG ORAL TABLET 1 tab po in the evening 2014 MONTELUKAST SODIUM 10 MG ORAL TABLET 280551 MONTELUKAST SODIUM Inactive BENZONATATE 100 MG ORAL CAPSULE 1 cap po TID PRN BENZONATATE 100 MG ORAL CAPSULE 614537 BENZONATATE Inactive NEURONTIN 300 MG ORAL CAPSULE 1 cap by mouth three times daily for restless leg NEURONTIN 300 MG ORAL CAPSULE 978539 GABAPENTIN Inactive LEVAQUIN 500 MG ORAL TABLET 1 tablet by mouth daily LEVAQUIN 500 MG ORAL TABLET 120108 LEVOFLOXACIN Inactive PREDNISONE 20 MG ORAL TABLET 1 TID x 2 days, then 1 BID x 3 days, then 1 Daily x 3 days, then stop PREDNISONE 20 MG ORAL TABLET 750797 PREDNISONE Inactive POTASSIUM CHLORIDE ER 10 MEQ ORAL TABLET EXTENDED RELEASE take 1 tab po daily POTASSIUM CHLORIDE ER 10 MEQ ORAL TABLET EXTENDED RELEASE POTASSIUM CHLORIDE Inactive PREDNISONE 20 MG ORAL TABLET 1 tab twice daily for 3 day, then one daily for three days PREDNISONE 20 MG ORAL TABLET 550325 PREDNISONE Inactive TESSALON PERLES 100 MG ORAL CAPSULE 1 to 2 tablets by mouth 3 times daily as needed for cough TESSALON PERLES 100 MG ORAL CAPSULE 741761 BENZONATATE Inactive POTASSIUM CHLORIDE ER 10 MEQ ORAL CAPSULE EXTENDED RELEASE 1 capsule by mouth daily POTASSIUM CHLORIDE ER 10 MEQ ORAL CAPSULE EXTENDED RELEASE POTASSIUM CHLORIDE Inactive NITROSTAT 0.4 MG SUBLINGUAL TABLET SUBLINGUAL 1 tab under tongueas needed for chest pain ( may take 3 total, 5 min apart, then call 911) NITROSTAT 0.4 MG SUBLINGUAL TABLET SUBLINGUAL 858521 NITROGLYCERIN Inactive LOVASTATIN 40 MG ORAL TABLET 1 pill by mouth nightly for cholesterol LOVASTATIN 40 MG ORAL TABLET 433572 LOVASTATIN Inactive CEFDINIR 300 MG ORAL CAPSULE take 1 cap po bid x 10 days CEFDINIR 300 MG ORAL CAPSULE 332318 CEFDINIR Inactive ACEBUTOLOL HCL 200 MG ORAL CAPSULE 1 cap in the morning and 2 caps in the evening ACEBUTOLOL HCL 200 MG ORAL CAPSULE 010525 ACEBUTOLOL HCL Inactive VENTOLIN HFA 108 (90 Base) MCG/ACT INHALATION AEROSOL SOLUTION 2 -4 puffs four times a day PRN VENTOLIN HFA 108 (90 Base) MCG/ ACT INHALATION AEROSOL SOLUTION ALBUTEROL SULFATE Inactive LEVAQUIN 500 MG ORAL TABLET Take 1 tab po daily x 8 days LEVAQUIN 500 MG ORAL TABLET 178298 LEVOFLOXACIN Inactive PREDNISONE 20 MG ORAL TABLET 2 tabs daily for 4 days, 1 tab daily for 4 days, 1/2 tab daily for 4 days PREDNISONE 20 MG ORAL TABLET 727407 PREDNISONE Inactive LOVASTATIN 40 MG ORAL TABLET Take 1 tab po every hs LOVASTATIN 40 MG ORAL TABLET 117467 LOVASTATIN Inactive DILAUDID 2 MG ORAL TABLET Take 1/2 tab po every 4 hours as needed for pain DILAUDID 2 MG ORAL TABLET 969820 HYDROMORPHONE HCL Inactive AMITRIPTYLINE HCL 25 MG ORAL TABLET 1 q hs prn AMITRIPTYLINE HCL 25 MG ORAL TABLET 851067 AMITRIPTYLINE HCL Inactive MECLIZINE HCL 25 MG ORAL TABLET 1 tablet three times daily for 3 days, then 1/ 2 tab three times daily for 3 days. MECLIZINE HCL 25 MG ORAL TABLET 906424 MECLIZINE HCL Inactive AMLODIPINE BESYLATE 5 MG ORAL TABLET Take 1 tab po daily AMLODIPINE BESYLATE 5 MG ORAL TABLET 427565 AMLODIPINE BESYLATE Inactive TOPIRAMATE 25 MG ORAL TABLET 1 tab po BID TOPIRAMATE 25 MG ORAL TABLET 119681 TOPIRAMATE Inactive PREDNISONE 20 MG ORAL TABLET 1 tablet twice daily for 2 days, then 1 tablet once daily for 2 days PREDNISONE 20 MG ORAL TABLET 853774 PREDNISONE Inactive PREDNISONE 20 MG ORAL TABLET 1 tab twice daily for 3 day, then one daily for three days PREDNISONE 20 MG ORAL TABLET 643313 PREDNISONE Inactive NIFEDIPINE ER 30 MG ORAL TABLET EXTENDED RELEASE 24 HOUR 1 daily NIFEDIPINE ER 30 MG ORAL TABLET EXTENDED RELEASE 24 HOUR NIFEDIPINE Inactive AMLODIPINE BESYLATE 5 MG ORAL TABLET 1 tablet by mouth daily 2016 AMLODIPINE BESYLATE 5 MG ORAL TABLET 856783 AMLODIPINE BESYLATE Inactive LASIX 20 MG ORAL TABLET 1 tablet by mouth every morning LASIX 20 MG ORAL TABLET 754122 FUROSEMIDE Inactive POTASSIUM CHLORIDE ER 10 MEQ ORAL CAPSULE EXTENDED RELEASE 1 capsule BID 2016 POTASSIUM CHLORIDE ER 10 MEQ ORAL CAPSULE EXTENDED RELEASE POTASSIUM CHLORIDE Inactive POTASSIUM CHLORIDE 20 MEQ ORAL PACKET 1 tab po q day POTASSIUM CHLORIDE 20 MEQ ORAL PACKET 9427366 POTASSIUM CHLORIDE Inactive PREDNISONE 20 MG ORAL TABLET 2 tablets by mouth today, then 1 tablet by mouth days 2-3 PREDNISONE 20 MG ORAL TABLET 997813 PREDNISONE Inactive SPIRONOLACTONE 25 MG ORAL TABLET 1 tablet by mouth daily SPIRONOLACTONE 25 MG ORAL TABLET 024870 SPIRONOLACTONE Inactive AZITHROMYCIN 250 MG ORAL TABLET 2 po qd x 1 day, then 1 po qd x 4 days 04/06 AZITHROMYCIN 250 MG ORAL TABLET 876223 AZITHROMYCIN Inactive AZITHROMYCIN 250 MG ORAL TABLET 2 po qd x 1 day, then 1 po qd x 4 days 12/30 AZITHROMYCIN 250 MG ORAL TABLET 517713 AZITHROMYCIN Inactive PREDNISONE 20 MG ORAL TABLET 2 po qd x 5 days PREDNISONE 20 MG ORAL TABLET 745643 PREDNISONE Inactive Vital Signs Date Name Value Unit Range Description blood pressure, diastolic 62 mm[Hg] BP adan blood pressure, systolic 120 mm[Hg] BP sys height E&M 64 [in_us] Bdy height pulse rate E&M 62 /min Heart rate temperature E&M 96.8 [degF] Body temperature weight E&M 129.31 [lb_av] Weight Measured blood pressure, diastolic 69 mm[Hg] BP adan blood pressure, systolic 109 mm[Hg] BP sys height E&M 64 [in_us] Bdy height pulse rate E&M 68 /min Heart rate temperature E&M 97.6 [degF] Body temperature weight E&M 127 [lb_av] Weight Measured blood pressure, diastolic 65 mm[Hg] BP adan [...] Panel - Chemistry sodium, serum 140 mmol/L 810-182 7796/07/13 potassium, serum 3.2 mmol/L 3.5-5.2 chloride, serum 103 mmol/L 98-107 carbon dioxide, venous blood 26.9 mmol/L 21.0-32.0 blood glucose 93 mg/dL 65-110 calcium, serum 9.2 mg/dL 8.5-10.1 urea nitrogen, blood 13 mg/dL 7-18 creatinine, serum 0.84 mg/dL 0.60-1.30 sodium, serum 140 mmol/L 029-401 9518/08/21 potassium, serum 3.8 mmol/L 3.5-5.2 chloride, serum [...] ... - Chemistry sodium, serum 141 mmol/L 910-853 8233/08/07 carbon dioxide, venous blood 34.0 mmol/L 21.0-32.0 [...] 1.40 mg/dL 0.00-1.00 cholesterol, serum 192 mg/dL 493-959 7176/10/19 triglyceride, serum, fasting 71 mg/dL 30-200 HDL cholesterol, serum 72 mg/dL 32-60 LDL cholesterol, serum 106 mg/dL 0-130 Lab Report: Rapid Strep - Lab Microbial identification kit, rapid strep method Negative Negative Lab Report: THEOPHYLLINE - Toxicology theophylline level, serum 3.1 ug/mL 10.0-20.0 Encounters Code Encounter Date Provider Facility CPT-11777 Level 4 Est. Patient 10:17:51 [employer]IL [employer]AP Harinder Cr [facility] CPT-35819 Level 3 Est. Patient 12:36:15 [employer] Harinder Cr [facility] CPT-62507 Level 3 Est. Patient 15:14:45 [employer] Harinder Cr [facility] CPT-82940 Level 4 Est. Patient 14:45:25 CDT aHrinder Cr [facility] CPT-64653 Level 4 Est. Patient 09:15:13 CDT Harinder Cr [facility] CPT-51826 Level 3 Est. Patient 11:51:58 CDT Harinder Cr [facility] CPT-07102 Level 3 Est. Patient 11:30:05 CDT Harinder Cr [facility] CPT-28158 Level 4 Est. Patient 10:19:23 CDT Harinder Cr [facility] CPT-35916 Level 3 Est. Patient 09:58:58 CDT Harinder Cr [facility] CPT-56594 Level 3 Est. Patient 12:37:21 CDT Harinder Cr [facility] CPT-08252 Level 3 Est. Patient 18:37:17 CDT Harinder Hernandez [facility] CPT-02445 Level 4 Est. Patient 11:15:54 CDT Nettie Newberry APRN [facility] CPT-74806 Level 3 Est. Patient 16:42:24 CDT Harinder Hernandez [facility] CPT-20340 Level 3 Est. Patient 15:03:36 CDT Harinder Hernandez [facility] CPT-14643 Level 3 Est. Patient 15:03:20 CDT Harinder Hernandez [facility] CPT-32482 Level 3 Est. Patient 12:14:34 CDT Harinder Hernandez [facility] CPT-26663 Level 3 Est. Patient 13:47:15 CDT Harinder Hernandez [facility] CPT-69690 Level 3 Est. Patient 14:08:24 CDT Harinder Hernandez [facility] CPT-10878 Level 3 Est. Patient 10:07:15 CDT Harinder Hernandez [facility] CPT-59863 Level 3 Est. Patient 10:06:59 CDT Harinder Hernandez [facility] CPT-53946 Level 3 Est. Patient 15:53:29 CDT Jae Morgan MD [facility] CPT-38836 Level 3 Est. Patient 17:19:04 CDT Harinder Hernandez [facility] CPT-39674 Level 3 Est. Patient 11:13:01 CDT Harinder Shaye Hernandez [facility] CPT-38401 Level 3 Est. Patient 09:03:58 CDT Harinder Hernandez [facility] CPT-50912 Level 3 Est. Patient 14:46:45 [employer] Harinder Cr David [facility] CPT-35824 Level 3 Est. Patient 09:35:49 [employer] Harinder W [facility] CPT-82193 Level 3 Est. Patient 09:29:37 [employer] Harinder Hernandez [facility] CPT-00293 Level 3 Est. Patient 15:51:07 CDT Harinder Hernandez [facility] CPT-72950 Level 3 Est. Patient 18:13:13 CDT Harinder Hernandez [facility] CPT-31898 Level 3 Est. Patient 10:44:19 CDT Harinder Hernandez [facility] CPT-41562 Level 4 Est. Patient 10:07:19 [employer] Harinder Cr [facility] CPT-64795 Level 3 Est. Patient 15:59:32 [employer] Harinder Hernandez [facility] Procedures Code Procedure Name Date Entry Date Standard Description CPT-G0009 Administration of Pneumococcal Vaccine 10:33:25 [employer] CPT-12252 Pneumovax 23 Injection Injectable 25 MCG/0.5ML 10:33:25 [employer] CPT-75734 First Vx - Ix admin for Medicare patients 10:33:25 [employer] CPT-46679 Fluzone Quadrivalent Intramuscular Suspension 0.5 ML 10: 33:25 [employer] CPT-Cryo Cryotherapy 10:17:51 [employer] CPT-G0438 Initial Annual Wellness Exam 10:08:59 [employer] CPT-64893 Abd compl w upright - XRAY USE ONLY 14:48:09 CDT 02/18 CPT-23451 Port a cath flush 13:46:05 CDT CPT-88850 Hip, complete, 2-3 views - XRAY USE ONLY 10:28:40 CDT CPT-06240 BMP - LAB USE ONLY 16:45:09 [employer] CPT-77449 Port a cath flush 12:00:13 [employer] CPT-TCMM Transitional Care Mgmt-Moderate 11:20:16 [employer] CPT-66512 First Vx - Ix admin for Medicare patients 17:35:15 CDT CPT-99859 Fluzone Preservative Free Intramuscular Suspension 17:35 :15 CDT CPT-85146 Microalbumin - LAB USE ONLY 11:52:05 CDT CPT-TCMM Transitional Care Mgmt-Moderate 11:33:57 CDT CPT-07660 No Charge Offi Visit 14:11:29 CDT CPT-57936 Magnesium - LAB USE ONLY 10:45:44 CDT CPT-29732 Lipid - LAB USE ONLY 10:45:44 CDT CPT-91553 CBC - LAB USE ONLY 10:45:44 CDT CPT-26293 Venipuncture Draw Fee 10:45:43 CDT CPT-23570 Venipuncture Draw Fee 18:21:27 CDT CPT-JTINJ Asp/Joint Injection 18:38:04 CDT CPT-87097 Immunization Each Additional Inj 17:38:04 CDT CPT-75220 Immunization Single Admin 17:38:04 CDT CPT-28588 Prevnar 13 17:38:04 CDT CPT-79956 Fluzone Quadrivalent preservative free (>=3yrs.) 17:38: 04 CDT CPT-96133 No Charge Offi Visit 11:14:03 CDT CPT-59783 Chest 2V Frontal and Lat 14:00:18 CDT CPT-OV Office Visit 16:10:28 CDT CPT-JTINJ Asp/Joint Injection 09:03:57 CDT CPT-Cryo Cryotherapy 09:35:49 COIL WINDER STRAP CPT-JTINJ Asp/Joint Injection 09:34:45 COIL WINDER STRAP CPT-J2930 Solu Medrol 125 mg (Methyl Prednisolone Sodium Succinate) 20:37:27 CDT CPT-33222 Abx/Therapy Injection 20:37:27 CDT CPT-07491 Port a cath flush 08:15:51 CDT CPT-31803 Port a cath flush 09:54:16 CDT CPT-30145 Port a cath flush 09:38:02 CDT CPT-03876 Port a cath flush 11:00:27 COIL WINDER STRAP
--- OUTSIDE RECORDS SUMMARY | 2017-12-28 23:49 | XMS REPORT | Clinical Summary ---
Author Author Admin, QIE Organization [facility] Address Unknown Phone Unavailable Allergies, Adverse Reactions, [...] Hypokalemia 276.8 Active Harinder Hernandez DO Hypopotassemia Breast mass, right ICD-611.72 Inactive Harinder Hernandez DO Encounter for fitting and adjustment of vascular catheter ICD-V58.81 Inactive Harinder Hernandez DO Back pain, lumbar ICD-724.2 Inactive Harinder Hernandez DO Insomnia ICD-780.52 Inactive Harinder Cr David DO Sacroiliitis, right ICD-720.2 Inactive Harinder Hernandez [...] NEBU SOLN 1 vial neb q 4hrs PRN Wheezing ALBUTEROL SULFATE 80285924847 Active Harinder Hernandez DO Active FLOVENT HFA 110 MCG/ACT AERO 2 puffs inhaled b.i.d. FLUTICASONE PROPIONATE HFA 32130610370 Active Harinder Hernandez DO Active POTASSIUM CHLORIDE CR 10 MEQ CPCR 1 capsule by mouth daily POTASSIUM CHLORIDE 18271562545 Active Harinder Hernandez DO Active EPIPEN 2-BRUNA 0.3 MG/0.3ML INJ SOAJ 1 INJ NEEDED EPINEPHRINE 68192127231 Active Tawnya Pardo MA Active PREDNISONE 20 MG TAB 1 tab twice daily for 3 day, then one daily for three days PREDNISONE 18157913225 No Longer Active Harinder Hernandez DO Active PREDNISONE 20 MG TAB 1 tablet twice daily for 2 days, then 1 tablet once daily for 2 days PREDNISONE 72845849322 No Longer Active Harinder Hernandez DO Active ASMANEX 120 METERED DOSES 220 MCG/INH INH AEPB 2 puffs orally twice daily MOMETASONE FUROATE 98999636472 Active Jeri Sosa RPT,RMA Active NIFEDIPINE ER 30 MG ORAL [id number] 1 daily NIFEDIPINE 53881078935 Active Harinder Hernandez DO Active TOPIRAMATE 25 MG TABS 1 tab po BID TOPIRAMATE 23988227809 No Longer Active Nettie Newberry APRN Active AMLODIPINE BESYLATE 5 MG ORAL TABS Take 1 tab po daily AMLODIPINE BESYLATE 60257021521 No Longer Active Nettie Newberry APRN Active MECLIZINE HCL 25 MG TAB 1 tablet three times daily for 3 days, then 1/2 tab three times daily for 3 days. MECLIZINE HCL 75689849466 No Longer Active Nettie Newebrry APRN Active AMITRIPTYLINE HCL 25 MG ORAL TABS 1 q hs prn AMITRIPTYLINE HCL 14527125330 No Longer Active Nettie Newberry APRN Active DILAUDID 2 MG ORAL TABS Take 1/2 tab po every 4 hours as needed for pain 2014 HYDROMORPHONE HCL 68315555756 No Longer Active Nettie Newberry APRN Active CLOPIDOGREL BISULFATE 75 MG ORAL TABS 1 tab by mouth once daily CLOPIDOGREL BISULFATE 31990001202 Active Tawnya Pardo MA Active ATORVASTATIN CALCIUM 10 MG ORAL TABS 1 at bedtime ATORVASTATIN CALCIUM 40657019381 Active Tawnya Pardo MA Active LOVASTATIN 40 MG ORAL TABS Take 1 tab po every hs LOVASTATIN 71993024810 No Longer Active Harinder Hernandez DO Active PREDNISONE 20 MG TAB 2 tabs daily for 4 days, 1 tab daily for 4 days, 1/2 tab daily for 4 days PREDNISONE 72181736782 No Longer Active Harinder Hernandez DO Active LEVAQUIN 500 MG ORAL TABS Take 1 tab po daily x 8 days LEVOFLOXACIN 30014687294 No Longer Active Harinder Hernandez DO Active VENTOLIN HFA 108 (90 BASE) MCG/ACT AERS 2 -4 puffs four times a day PRN 2013 ALBUTEROL SULFATE 10710695423 No Longer Active Jeri Sosa RPT,RMA Active ACEBUTOLOL HCL 200 MG CAPS 1 cap in the morning and 2 caps in the evening ACEBUTOLOL HCL 43106770096 No Longer Active Harinder Hernandez DO Active CEFDINIR 300 MG ORAL CAPS take 1 cap po bid x 10 days CEFDINIR 05883607934 No Longer Active Harinder Hernandez DO Active LOVASTATIN 40 MG TABS 1 pill by mouth nightly for cholesterol LOVASTATIN 07321040707 No Longer Active Nettie Newberry APRN Active NITROSTAT 0.4 MG SUBL 1 tab under tongueas needed for chest pain ( may take 3 total, 5 min apart, then call 911) NITROGLYCERIN 26771309650 No Longer Active Nettie Newberry MAHENDRA Active POTASSIUM CHLORIDE CR 10 MEQ CPCR 1 capsule by mouth daily 02/14 POTASSIUM CHLORIDE 82933570802 No Longer Active Nettie Newberry MAHENDRA Active TESSALON PERLES 100 MG CAP 1 to 2 tablets by mouth 3 times daily as needed for cough BENZONATATE 90201364736 No Longer Active Nettie Newberry MAHENDRA Active THEOPHYLLINE ER 200 MG ORAL [id number] Take 1 tab every 12 hours THEOPHYLLINE 68953886592 Active Tawnya Pardo MA Active PREDNISONE 20 MG TAB 2 po qd x 5 days PREDNISONE 22285217883 No Longer Active Jae Morgan MD Active AZITHROMYCIN 250 MG TABS 2 po qd x 1 day, then 1 po qd x 4 days AZITHROMYCIN 16199027804 No Longer Active Jae Morgan MD Active PREDNISONE 20 MG TAB 1 tab twice daily for 3 day, then one daily for three days PREDNISONE 39674825837 No Longer Active Jae Morgan MD Active SINGULAIR 10 MG TABS 1 pill by mouth every evening for breathing. MONTELUKAST SODIUM 50432788807 Active Tawnya Pardo MA Active TYLENOL 325 MG TAB 3 by mouth q4h as needed ACETAMINOPHEN 88699199189 Active Harinder Hernandez DO Active POTASSIUM CHLORIDE ER 10 MEQ CR-TABS take 1 tab po daily POTASSIUM CHLORIDE 50840977415 No Longer Active Harinder Hernandez DO Active PREDNISONE 20 MG TAB 1 TID x 2 days, then 1 BID x 3 days, then 1 Daily x 3 days, then stop PREDNISONE 80251289320 No Longer Active Jialec Montemayor APRN Active LEVAQUIN 500 MG TAB 1 tablet by mouth daily LEVOFLOXACIN 24486718758 No Longer Active Jillina Frazell FORGE TENDER Active NEURONTIN 300 MG CAP 1 cap by mouth three times daily for restless leg 06/22 GABAPENTIN 06112364636 No Longer Active Harinder Hernandez DO Active BENZONATATE 100 MG CAPS 1 cap po TID PRN BENZONATATE 20034845598 No Longer Active Harinder Hernandez DO Active MONTELUKAST SODIUM 10 MG TABS 1 tab po in the evening MONTELUKAST SODIUM 71743821842 No Longer Active Harinder Hernandez DO Active MUPIROCIN 2 % OINT apply to affected area BID x 14 days MUPIROCIN 18187371161 No Longer Active Harinder Hernandez DO Active TYLENOL EXTRA STRENGTH 500 MG TABS as needed ACETAMINOPHEN 54702686050 No Longer Active Harinder Hernandez DO Active PREDNISONE 10 MG TABS 1 tab po daily PREDNISONE 65612669356 No Longer Active Harinder Hernandez DO Active PREDNISONE 20 MG TAB 2 tabs daily for 4 days, 1 tab daily for 4 days, 1/2 tab daily for 4 days PREDNISONE 42749386766 No Longer Active Harinder Hernandez DO Active AZITHROMYCIN 250 MG TABS 2 po qd x 1 day, then 1 po qd x 4 days AZITHROMYCIN 18109862318 No Longer Active Harinder Hernandez DO Active PREDNISONE 20 MG TAB 3 tabs today, then 1 tab twice daily for 3 day, then one daily for three days PREDNISONE 17230450307 No Longer Active Harinder Hernandez DO Active NIFEDIAC CC 30 MG [id number] 1 tablet daily for raynaud's syndrome NIFEDIPINE 11330317358 No Longer Active Tawnya Pardo MA Active AMBIEN 10 MG TAB 1/2 tab by mouth at bedtime as needed for sleep ZOLPIDEM TARTRATE 66248325405 Active Harinder Hernandez DO Active CLONAZEPAM 1 MG TABS 1 tablet at bedtime for insomnia and restless legs 09/14 CLONAZEPAM 16519602836 Active Harinder Hernandez DO Active CLONAZEPAM 0.5 MG TABS 1 tab po daily CLONAZEPAM 73014674126 No Longer Active Harinder Hernandez DO Active PREDNISONE 10 MG TAB 1 tablet daily for COPD PREDNISONE 30584431670 Active Tawnya Pardo MA Active PROAIR HFA 108 (90 BASE) MCG/ACT AERS 2 puffs four times a day as needed 2012 ALBUTEROL SULFATE 08423824202 Active Tawnya Pardo MA Active FLOVENT HFA 110 MCG/ACT AERO 2 puffs inhaled b.i.d. FLUTICASONE PROPIONATE HFA 38669375420 Active Tawnya Pardo MA Active ACIPHEX 20 MG TBEC 1 tab po daily RABEPRAZOLE SODIUM 57486987441 Active Kaylah Newberry Active CLONAZEPAM 0.5 MG TABS 1 tab po daily CLONAZEPAM 0.5 MG TABS 442562 CLONAZEPAM Inactive PREDNISONE 20 MG TAB 3 tabs today, then 1 tab twice daily for 3 day, then one daily for three days PREDNISONE 20 MG TAB 254197 PREDNISONE Inactive PREDNISONE 20 MG TAB 2 tabs daily for 4 days, 1 tab daily for 4 days, 1/2 tab daily for 4 days PREDNISONE 20 MG TAB 112892 PREDNISONE Inactive PREDNISONE 10 MG TABS 1 tab po daily PREDNISONE 10 MG TABS 891374 PREDNISONE Inactive TYLENOL EXTRA STRENGTH 500 MG TABS as needed TYLENOL EXTRA STRENGTH 500 MG TABS 451478 ACETAMINOPHEN Inactive MUPIROCIN 2 % OINT apply to affected area BID x 14 days MUPIROCIN 2 % OINT 735611 MUPIROCIN Inactive MONTELUKAST SODIUM 10 MG TABS 1 tab po in the evening MONTELUKAST SODIUM 10 MG TABS 20010818 MONTELUKAST SODIUM Inactive BENZONATATE 100 MG CAPS 1 cap po TID PRN BENZONATATE 100 MG CAPS 19730321 BENZONATATE Inactive NEURONTIN 300 MG CAP 1 cap by mouth three times daily for restless leg 06/22 NEURONTIN 300 MG CAP 577421 GABAPENTIN Inactive LEVAQUIN 500 MG TAB 1 tablet by mouth daily LEVAQUIN 500 MG TAB 105119 LEVOFLOXACIN Inactive PREDNISONE 20 MG TAB 1 TID x 2 days, then 1 BID x 3 days, then 1 Daily x 3 days, then stop PREDNISONE 20 MG TAB 714020 PREDNISONE Inactive POTASSIUM CHLORIDE ER 10 MEQ CR-TABS take 1 tab po daily POTASSIUM CHLORIDE ER 10 MEQ CR-TABS POTASSIUM CHLORIDE Inactive PREDNISONE 20 MG TAB 1 tab twice daily for 3 day, then one daily for three days PREDNISONE 20 MG TAB 513307 PREDNISONE Inactive TESSALON PERLES 100 MG CAP 1 to 2 tablets by mouth 3 times daily as needed for cough TESSALON PERLES 100 MG CAP 150299 BENZONATATE Inactive POTASSIUM CHLORIDE CR 10 MEQ CPCR 1 capsule by mouth daily 02/14 POTASSIUM CHLORIDE CR 10 MEQ CPCR POTASSIUM CHLORIDE Inactive NITROSTAT 0.4 MG SUBL 1 tab under tongueas needed for chest pain ( may take 3 total, 5 min apart, then call 911) NITROSTAT 0.4 MG SUBL 623528 NITROGLYCERIN Inactive LOVASTATIN 40 MG TABS 1 pill by mouth nightly for cholesterol LOVASTATIN 40 MG TABS 561872 LOVASTATIN Inactive CEFDINIR 300 MG ORAL CAPS take 1 cap po bid x 10 days CEFDINIR 300 MG ORAL CAPS 465220 CEFDINIR Inactive ACEBUTOLOL HCL 200 MG CAPS 1 cap in the morning and 2 caps in the evening ACEBUTOLOL HCL 200 MG CAPS 795514 ACEBUTOLOL HCL Inactive VENTOLIN HFA 108 (90 BASE) MCG/ACT AERS 2 -4 puffs four times a day PRN 2013 VENTOLIN HFA 108 (90 BASE) MCG/ACT AERS ALBUTEROL SULFATE Inactive LEVAQUIN 500 MG ORAL TABS Take 1 tab po daily x 8 days LEVAQUIN 500 MG ORAL TABS 614015 LEVOFLOXACIN Inactive PREDNISONE 20 MG TAB 2 tabs daily for 4 days, 1 tab daily for 4 days, 1/2 tab daily for 4 days PREDNISONE 20 MG TAB 391458 PREDNISONE Inactive LOVASTATIN 40 MG ORAL TABS Take 1 tab po every hs LOVASTATIN 40 MG ORAL TABS 109292 LOVASTATIN Inactive DILAUDID 2 MG ORAL TABS Take 1/2 tab po every 4 hours as needed for pain 2014 DILAUDID 2 MG ORAL TABS 541122 HYDROMORPHONE HCL Inactive AMITRIPTYLINE HCL 25 MG ORAL TABS 1 q hs prn AMITRIPTYLINE HCL 25 MG ORAL TABS 626975 AMITRIPTYLINE HCL Inactive MECLIZINE HCL 25 MG TAB 1 tablet three times daily for 3 days, then 1/2 tab three times daily for 3 days. MECLIZINE HCL 25 MG TAB 144269 MECLIZINE HCL Inactive AMLODIPINE BESYLATE 5 MG ORAL TABS Take 1 tab po daily AMLODIPINE BESYLATE 5 MG ORAL TABS 718244 AMLODIPINE BESYLATE Inactive TOPIRAMATE 25 MG TABS 1 tab po BID TOPIRAMATE 25 MG TABS 712133 TOPIRAMATE Inactive PREDNISONE 20 MG TAB 1 tablet twice daily for 2 days, then 1 tablet once daily for 2 days PREDNISONE 20 MG TAB 683968 PREDNISONE Inactive PREDNISONE 20 MG TAB 1 tab twice daily for 3 day, then one daily for three days PREDNISONE 20 MG TAB 299497 PREDNISONE Inactive AZITHROMYCIN 250 MG TABS 2 po qd x 1 day, then 1 po qd x 4 days AZITHROMYCIN 250 MG TABS 7596527 AZITHROMYCIN Inactive AZITHROMYCIN 250 MG TABS 2 po qd x 1 day, then 1 po qd x 4 days AZITHROMYCIN 250 MG TABS 8845828 AZITHROMYCIN Inactive PREDNISONE 20 MG TAB 2 po qd x 5 days PREDNISONE 20 MG TAB 086911 PREDNISONE Inactive Vital Signs Date Name Value Unit Range Description blood pressure, diastolic - 8462-4 61 mm[Hg] [...] Magnesium - Chemistry cholesterol, serum 180 mg/dL 269-028 2818/08/08 triglyceride, serum, fasting 92 mg/dL 30-200 HDL cholesterol, serum 66 mg/dL 32-96 LDL cholesterol, serum 96 mg/dL 0-130 sodium, serum 142 mmol/L 510-711 8663/08/08 carbon dioxide, venous blood 27.4 mmol/L 21.0-32.0 [...] 10.0-20.0 Encounters Code Encounter Date Provider Facility CPT-79936 Level 3 Est. Patient 09:58:58 CDT Harinder Cr [facility] CPT-83097 Level 3 Est. Patient 12:37:21 CDT Harinder Hernandez [facility] CPT-63722 Level 3 Est. Patient 18:37:17 CDT Harinder Cr [facility] CPT-47588 Level 4 Est. Patient 11:15:54 CDT Nettie Newberry APRN [facility] CPT-34858 Level 3 Est. Patient 16:42:24 CDT Harinder Cr [facility] CPT-26441 Level 3 Est. Patient 15:03:36 CDT Harinder Hernandez [facility] CPT-11836 Level 3 Est. Patient 15:03:20 CDT Harindre Cr [facility] CPT-42282 Level 3 Est. Patient 12:14:34 CDT Harinder Hernandez [facility] CPT-57753 Level 3 Est. Patient 13:47:15 CDT Harinder Hernandez [facility] CPT-17790 Level 3 Est. Patient 14:08:24 CDT Harinder Hernandez [facility] CPT-68930 Level 3 Est. Patient 10:07:15 CDT Harinder Cr [facility] CPT-28676 Level 3 Est. Patient 10:06:59 CDT Harinder Hernandez [facility] CPT-60217 Level 3 Est. Patient 15:53:29 CDT Jae Morgan MD [facility] CPT-71167 Level 3 Est. Patient 17:19:04 CDT Harinder Hernandez [facility] CPT-25611 Level 3 Est. Patient 11:13:01 CDT Harinder Hernandez [facility] CPT-13572 Level 3 Est. Patient 09:03:58 CDT Harinder Hernandez [facility] CPT-36405 Level 3 Est. Patient 14:46:45 BACKSHOE PERSON Harinder Hernandez [facility] CPT-37152 Level 3 Est. Patient 09:35:49 BACKSHOE PERSON Harinder Hernandez [facility] CPT-80952 Level 3 Est. Patient 09:29:37 BACKSHOE PERSON Harinder Hernandez [facility] CPT-13236 Level 3 Est. Patient 15:51:07 CDT Harinder Hernandez [facility] CPT-58171 Level 3 Est. Patient 18:13:13 CDT Harinder Cr [facility] CPT-69363 Level 3 Est. Patient 10:44:19 CDT Harinder Cr [facility] CPT-93808 Level 4 Est. Patient 10:07:19 BACKSHOE PERSON Harinder Cr [facility] CPT-49080 Level 3 Est. Patient 15:59:32 BACKSHOE PERSON Harinder Cr [facility] Procedures Code Procedure Name Date Entry Date Standard Description CPT-TCMM Transitional Care Mgmt-Moderate 11:20:16 BACKSHOE PERSON CPT-06872 First Vx - Ix admin for Medicare patients 17:35:15 CDT CPT-36452 Fluzone Preservative Free Intramuscular Suspension 17:35 :15 CDT CPT-81440 Microalbumin - LAB USE ONLY 11:52:05 CDT CPT-TCMM Transitional Care Mgmt-Moderate 11:33:57 CDT CPT-80062 No Charge Offi Visit 14:11:29 CDT CPT-85132 Magnesium - LAB USE ONLY 10:45:44 CDT CPT-72568 Lipid - LAB USE ONLY 10:45:44 CDT CPT-91994 CBC - LAB USE ONLY 10:45:44 CDT CPT-31757 Venipuncture Draw Fee 10:45:43 CDT CPT-36650 Venipuncture Draw Fee 18:21:27 CDT CPT-JTINJ Asp/Joint Injection 18:38:04 CDT CPT-08033 Immunization Each Additional Inj 17:38:04 CDT CPT-19014 Immunization Single Admin 17:38:04 CDT CPT-16043 Prevnar 13 17:38:04 CDT CPT-76457 Fluzone Quadrivalent preservative free (>=3yrs.) 17:38: 04 CDT CPT-34078 No Charge Offi Visit 11:14:03 CDT CPT-25055 Chest 2V Frontal and Lat 14:00:18 CDT CPT-OV Office Visit 16:10:28 CDT CPT-JTINJ Asp/Joint Injection 09:03:57 CDT CPT-Cryo Cryotherapy 09:35:49 BACKSHOE PERSON CPT-JTINJ Asp/Joint Injection 09:34:45 BACKSHOE PERSON CPT-J2930 Solu Medrol 125 mg (Methyl Prednisolone Sodium Succinate) 20:37:27 CDT CPT-77718 Abx/Therapy Injection 20:37:27 CDT CPT-26020 Port a cath flush 08:15:51 CDT CPT-18138 Port a cath flush 09:54:16 T CPT-75148 Port a cath flush 09:38:02 T CPT-84878 Port a cath flush 11:00:27 BACKSHOE PERSON
--- OUTSIDE RECORDS SUMMARY | 2017-12-28 23:51 | XMS REPORT | Clinical Summary ---
Author Author Admin, QIE Organization [facility] [place] Address Unknown Phone Unavailable Allergies, Adverse Reactions, [...] 1 vial neb q 4hrs PRN Wheezing Dx: J44.1 ALBUTEROL SULFATE [id number] Active Kortney Mccain Active AMLODIPINE BESYLATE 5 MG TABS 1 tablet by mouth daily AMLODIPINE BESYLATE 29323209672 Active Harinder Hernandez DO Active NIFEDIPINE ER 30 MG ORAL [id number] 1 daily NIFEDIPINE 73996955284 No Longer Active Harinder Hernandez DO Active POTASSIUM CHLORIDE 20 MEQ ORAL PACK Take 1 tablet by mouth daily POTASSIUM CHLORIDE 51483631240 Active Ciera Pimentel Active FLOVENT HFA 110 MCG/ACT AERO 2 puffs inhaled b.i.d. FLUTICASONE PROPIONATE HFA 98821889395 Active Harinder Hernandez DO Active POTASSIUM CHLORIDE CR 10 MEQ CPCR 1 capsule by mouth daily POTASSIUM CHLORIDE 38191150329 Active Harinder Hernandez DO Active EPIPEN 2-BRUNA 0.3 MG/0.3ML INJ SOAJ 1 INJ NEEDED EPINEPHRINE 67868440478 Active Harinder Hernandez DO Active PREDNISONE 20 MG TAB 1 tab twice daily for 3 day, then one daily for three days PREDNISONE 57057219534 No Longer Active Harinder Hernandez DO Active PREDNISONE 20 MG TAB 1 tablet twice daily for 2 days, then 1 tablet once daily for 2 days PREDNISONE 20848343702 No Longer Active Harinder Hernandez DO Active ASMANEX 120 METERED DOSES 220 MCG/INH INH AEPB 2 puffs orally twice daily MOMETASONE FUROATE 71924134014 Active Jeri Sosa RPT,RMA Active TOPIRAMATE 25 MG TABS 1 tab po BID TOPIRAMATE 10933453091 No Longer Active Nettie Newberry APRN Active AMLODIPINE BESYLATE 5 MG ORAL TABS Take 1 tab po daily AMLODIPINE BESYLATE 39986283788 No Longer Active Nettie Newberry APRN Active MECLIZINE HCL 25 MG TAB 1 tablet three times daily for 3 days, then 1/2 tab three times daily for 3 days. MECLIZINE HCL 06937862936 No Longer Active Nettie Newberry ENVIRONMENTAL ENGINEERING TECHNICIAN Active AMITRIPTYLINE HCL 25 MG ORAL TABS 1 q hs prn AMITRIPTYLINE HCL 11336035379 No Longer Active Nettie Newberry MAHENDRA Active DILAUDID 2 MG ORAL TABS Take 1/2 tab po every 4 hours as needed for pain 2014 HYDROMORPHONE HCL 84962944334 No Longer Active Nettie Newberry MAHENDRA Active CLOPIDOGREL BISULFATE 75 MG ORAL TABS 1 tab by mouth once daily CLOPIDOGREL BISULFATE 14104762831 Active Harinder Hernandez DO Active ATORVASTATIN CALCIUM 10 MG ORAL TABS 1 at bedtime ATORVASTATIN CALCIUM 43473641319 Active Tawnya Pardo MA Active LOVASTATIN 40 MG ORAL TABS Take 1 tab po every hs LOVASTATIN 48318038201 No Longer Active Harinder Hernandez DO Active PREDNISONE 20 MG TAB 2 tabs daily for 4 days, 1 tab daily for 4 days, 1/2 tab daily for 4 days PREDNISONE 38653766163 No Longer Active Harinder Hernandez DO Active LEVAQUIN 500 MG ORAL TABS Take 1 tab po daily x 8 days LEVOFLOXACIN 00104014767 No Longer Active Harinder Hernandez DO Active VENTOLIN HFA 108 (90 BASE) MCG/ACT AERS 2 -4 puffs four times a day PRN 2013 ALBUTEROL SULFATE 95160471854 No Longer Active Jeri Sosa RPT,RMA Active ACEBUTOLOL HCL 200 MG CAPS 1 cap in the morning and 2 caps in the evening ACEBUTOLOL HCL 45080122417 No Longer Active Harinder Hernandez DO Active CEFDINIR 300 MG ORAL CAPS take 1 cap po bid x 10 days CEFDINIR 04129405127 No Longer Active Harinder Hernandez DO Active LOVASTATIN 40 MG TABS 1 pill by mouth nightly for cholesterol LOVASTATIN 50294182720 No Longer Active Nettie Newberry APRN Active NITROSTAT 0.4 MG SUBL 1 tab under tongueas needed for chest pain ( may take 3 total, 5 min apart, then call 911) NITROGLYCERIN 19325719033 No Longer Active Nettie Newberry APRN Active POTASSIUM CHLORIDE CR 10 MEQ CPCR 1 capsule by mouth daily 02/14 POTASSIUM CHLORIDE 41072419124 No Longer Active Nettie Newberry APRN Active TESSALON PERLES 100 MG CAP 1 to 2 tablets by mouth 3 times daily as needed for cough BENZONATATE 33980772345 No Longer Active Nettie Newberry APRN Active THEOPHYLLINE ER 200 MG ORAL [id number] Take 1 tab every 12 hours THEOPHYLLINE 46837348475 Active Tawnya Pardo MA Active PREDNISONE 20 MG TAB 2 po qd x 5 days PREDNISONE 02518490726 No Longer Active Jae Morgan MD Active AZITHROMYCIN 250 MG TABS 2 po qd x 1 day, then 1 po qd x 4 days AZITHROMYCIN 92122101080 No Longer Active Jae Morgan MD Active PREDNISONE 20 MG TAB 1 tab twice daily for 3 day, then one daily for three days PREDNISONE 07503497310 No Longer Active Jae Morgan MD Active SINGULAIR 10 MG TABS 1 pill by mouth every evening for breathing. MONTELUKAST SODIUM 82039586145 Active Tawnya Pardo MA Active TYLENOL 325 MG TAB 3 by mouth q4h as needed ACETAMINOPHEN 76313644779 Active Harinder Hernandez DO Active POTASSIUM CHLORIDE ER 10 MEQ CR-TABS take 1 tab po daily POTASSIUM CHLORIDE 05372612789 No Longer Active Harinder Hernandez DO Active PREDNISONE 20 MG TAB 1 TID x 2 days, then 1 BID x 3 days, then 1 Daily x 3 days, then stop PREDNISONE 90989339957 No Longer Active Jillina Frazellor BRICEÑON Active LEVAQUIN 500 MG TAB 1 tablet by mouth daily LEVOFLOXACIN 74186486580 No Longer Active Jillina Frazell ENVIRONMENTAL ENGINEERING TECHNICIAN Active NEURONTIN 300 MG CAP 1 cap by mouth three times daily for restless leg 06/22 GABAPENTIN 95980438803 No Longer Active Harinder Hernadnez DO Active BENZONATATE 100 MG CAPS 1 cap po TID PRN BENZONATATE 07982060317 No Longer Active Harinder Hernandez DO Active MONTELUKAST SODIUM 10 MG TABS 1 tab po in the evening MONTELUKAST SODIUM 45429008919 No Longer Active Harinder Hernandez DO Active MUPIROCIN 2 % OINT apply to affected area BID x 14 days MUPIROCIN 43502115838 No Longer Active Harinder Hernandez DO Active TYLENOL EXTRA STRENGTH 500 MG TABS as needed ACETAMINOPHEN 57679643516 No Longer Active Harinder Hernandez DO Active PREDNISONE 10 MG TABS 1 tab po daily PREDNISONE 01213422934 No Longer Active Harinder Hernandez DO Active PREDNISONE 20 MG TAB 2 tabs daily for 4 days, 1 tab daily for 4 days, 1/2 tab daily for 4 days PREDNISONE 14367671753 No Longer Active Harinder Hernandez DO Active AZITHROMYCIN 250 MG TABS 2 po qd x 1 day, then 1 po qd x 4 days AZITHROMYCIN 61052297022 No Longer Active Harinder Hernandez DO Active PREDNISONE 20 MG TAB 3 tabs today, then 1 tab twice daily for 3 day, then one daily for three days PREDNISONE 24995447706 No Longer Active Harinder Hernandez DO Active NIFEDIAC CC 30 MG [id number]-ESP 1 tablet daily for raynaud's syndrome NIFEDIPINE 59926979502 No Longer Active Tawnya Pardo MA Active AMBIEN 10 MG TAB 1/2 tab by mouth at bedtime as needed for sleep ZOLPIDEM TARTRATE 82050180649 Active Harinder Hernandez DO Active CLONAZEPAM 1 MG TABS 1 tablet at bedtime for insomnia and restless legs 09/14 CLONAZEPAM 37836907793 Active Harinder Hernandez DO Active CLONAZEPAM 0.5 MG TABS 1 tab po daily CLONAZEPAM 99643670676 No Longer Active Harinder Cr David PINO Active PREDNISONE 10 MG TAB 1 tablet daily for COPD PREDNISONE 04524035416 Active Tawnya Pardo MA Active PROAIR HFA 108 (90 BASE) MCG/ACT AERS 2 puffs four times a day as needed 2012 ALBUTEROL SULFATE 07455874841 Active Harinder Hernandez DO Active FLOVENT HFA 110 MCG/ACT AERO 2 puffs inhaled b.i.d. FLUTICASONE PROPIONATE HFA 76636790209 Active Kortney Mccain Active ACIPHEX 20 MG TBEC 1 tab po daily RABEPRAZOLE SODIUM 47902043346 Active Kaylah Newberry Active CLONAZEPAM 0.5 MG TABS 1 tab po daily CLONAZEPAM 0.5 MG TABS 267600 CLONAZEPAM Inactive PREDNISONE 20 MG TAB 3 tabs today, then 1 tab twice daily for 3 day, then one daily for three days PREDNISONE 20 MG TAB 727061 PREDNISONE Inactive PREDNISONE 20 MG TAB 2 tabs daily for 4 days, 1 tab daily for 4 days, 1/2 tab daily for 4 days PREDNISONE 20 MG TAB 084412 PREDNISONE Inactive PREDNISONE 10 MG TABS 1 tab po daily PREDNISONE 10 MG TABS 168001 PREDNISONE Inactive TYLENOL EXTRA STRENGTH 500 MG TABS as needed TYLENOL EXTRA STRENGTH 500 MG TABS 221625 ACETAMINOPHEN Inactive MUPIROCIN 2 % OINT apply to affected area BID x 14 days MUPIROCIN 2 % OINT 444935 MUPIROCIN Inactive MONTELUKAST SODIUM 10 MG TABS 1 tab po in the evening MONTELUKAST SODIUM 10 MG TABS 20010818 MONTELUKAST SODIUM Inactive BENZONATATE 100 MG CAPS 1 cap po TID PRN BENZONATATE 100 MG CAPS 19730321 BENZONATATE Inactive NEURONTIN 300 MG CAP 1 cap by mouth three times daily for restless leg 06/22 NEURONTIN 300 MG CAP 004538 GABAPENTIN Inactive LEVAQUIN 500 MG TAB 1 tablet by mouth daily LEVAQUIN 500 MG TAB 046915 LEVOFLOXACIN Inactive PREDNISONE 20 MG TAB 1 TID x 2 days, then 1 BID x 3 days, then 1 Daily x 3 days, then stop PREDNISONE 20 MG TAB 836858 PREDNISONE Inactive POTASSIUM CHLORIDE ER 10 MEQ CR-TABS take 1 tab po daily POTASSIUM CHLORIDE ER 10 MEQ CR-TABS POTASSIUM CHLORIDE Inactive PREDNISONE 20 MG TAB 1 tab twice daily for 3 day, then one daily for three days PREDNISONE 20 MG TAB 013845 PREDNISONE Inactive TESSALON PERLES 100 MG CAP 1 to 2 tablets by mouth 3 times daily as needed for cough TESSALON PERLES 100 MG CAP 19730321 BENZONATATE Inactive POTASSIUM CHLORIDE CR 10 MEQ CPCR 1 capsule by mouth daily 02/14 POTASSIUM CHLORIDE CR 10 MEQ CPCR POTASSIUM CHLORIDE Inactive NITROSTAT 0.4 MG SUBL 1 tab under tongueas needed for chest pain ( may take 3 total, 5 min apart, then call 911) NITROSTAT 0.4 MG SUBL 331930 NITROGLYCERIN Inactive LOVASTATIN 40 MG TABS 1 pill by mouth nightly for cholesterol LOVASTATIN 40 MG TABS 350639 LOVASTATIN Inactive CEFDINIR 300 MG ORAL CAPS take 1 cap po bid x 10 days CEFDINIR 300 MG ORAL CAPS 20021018 CEFDINIR Inactive ACEBUTOLOL HCL 200 MG CAPS 1 cap in the morning and 2 caps in the evening ACEBUTOLOL HCL 200 MG CAPS 195822 ACEBUTOLOL HCL Inactive VENTOLIN HFA 108 (90 BASE) MCG/ACT AERS 2 -4 puffs four times a day PRN 2013 VENTOLIN HFA 108 (90 BASE) MCG/ACT AERS ALBUTEROL SULFATE Inactive LEVAQUIN 500 MG ORAL TABS Take 1 tab po daily x 8 days LEVAQUIN 500 MG ORAL TABS 712705 LEVOFLOXACIN Inactive PREDNISONE 20 MG TAB 2 tabs daily for 4 days, 1 tab daily for 4 days, 1/2 tab daily for 4 days PREDNISONE 20 MG TAB 985365 PREDNISONE Inactive LOVASTATIN 40 MG ORAL TABS Take 1 tab po every hs LOVASTATIN 40 MG ORAL TABS 659567 LOVASTATIN Inactive DILAUDID 2 MG ORAL TABS Take 1/2 tab po every 4 hours as needed for pain 2014 DILAUDID 2 MG ORAL TABS 774477 HYDROMORPHONE HCL Inactive AMITRIPTYLINE HCL 25 MG ORAL TABS 1 q hs prn AMITRIPTYLINE HCL 25 MG ORAL TABS 771371 AMITRIPTYLINE HCL Inactive MECLIZINE HCL 25 MG TAB 1 tablet three times daily for 3 days, then 1/2 tab three times daily for 3 days. MECLIZINE HCL 25 MG TAB 123118 MECLIZINE HCL Inactive AMLODIPINE BESYLATE 5 MG ORAL TABS Take 1 tab po daily AMLODIPINE BESYLATE 5 MG ORAL TABS 317826 AMLODIPINE BESYLATE Inactive TOPIRAMATE 25 MG TABS 1 tab po BID TOPIRAMATE 25 MG TABS 421168 TOPIRAMATE Inactive PREDNISONE 20 MG TAB 1 tablet twice daily for 2 days, then 1 tablet once daily for 2 days PREDNISONE 20 MG TAB 011829 PREDNISONE Inactive PREDNISONE 20 MG TAB 1 tab twice daily for 3 day, then one daily for three days PREDNISONE 20 MG TAB 664291 PREDNISONE Inactive NIFEDIPINE ER 30 MG ORAL [id number] 1 daily NIFEDIPINE ER 30 MG ORAL [id number] NIFEDIPINE Inactive AZITHROMYCIN 250 MG TABS 2 po qd x 1 day, then 1 po qd x 4 days AZITHROMYCIN 250 MG TABS 7503593 AZITHROMYCIN Inactive AZITHROMYCIN 250 MG TABS 2 po qd x 1 day, then 1 po qd x 4 days AZITHROMYCIN 250 MG TABS 8508002 AZITHROMYCIN Inactive PREDNISONE 20 MG TAB 2 po qd x 5 days PREDNISONE 20 MG TAB 531380 PREDNISONE Inactive Vital Signs Date Name Value [...] E&M - 3141-9 125 [lb_av] Weight Measured Diagnostic Results Date Name Value Unit Range Description Lab Report: Basic Metabolic Panel - Chemistry sodium, serum 137 mmol/L 150-717 6453/01/03 potassium, serum 3.4 mmol/L 3.5-5.2 chloride, serum [...] Magnesium - Chemistry cholesterol, serum 180 mg/dL 413-972 0565/08/08 triglyceride, serum, fasting 92 mg/dL 30-200 HDL cholesterol, serum 66 mg/dL 32-96 LDL cholesterol, serum 96 mg/dL 0-130 sodium, serum 142 mmol/L 765-374 5612/08/08 carbon dioxide, venous blood 27.4 mmol/L 21.0-32.0 [...] 10.0-20.0 Encounters Code Encounter Date Provider Facility CPT-25877 Level 3 Est. Patient 09:58:58 CDT Harinder Shaye [facility] CPT-49039 Level 3 Est. Patient 12:37:21 CDT Harinder Shaye [facility] CPT-75950 Level 3 Est. Patient 18:37:17 CDT Harinder Shaye [facility] CPT-58279 Level 4 Est. Patient 11:15:54 CDT Nettie [facility] CPT-85578 Level 3 Est. Patient 16:42:24 CDT Harinder Shaye [facility] CPT-06080 Level 3 Est. Patient 15:03:36 CDT Harinder Shaye [facility] CPT-06423 Level 3 Est. Patient 15:03:20 CDT Harindre Cr [facility] CPT-35938 Level 3 Est. Patient 12:14:34 CDT Harinder Cr [facility] CPT-39733 Level 3 Est. Patient 13:47:15 CDT Harinder Cr [facility] CPT-84595 Level 3 Est. Patient 14:08:24 CDT Harinder Hernandez [facility] CPT-80278 Level 3 Est. Patient 10:07:15 CDT Harinder Hernandez [facility] CPT-78072 Level 3 Est. Patient 10:06:59 CDT Harinder Hernandez [facility] CPT-10066 Level 3 Est. Patient 15:53:29 CDT Jae Morgan MD [facility] CPT-93935 Level 3 Est. Patient 17:19:04 CDT Harinder Hernandez [facility] CPT-52403 Level 3 Est. Patient 11:13:01 CDT Harinder Hernandez [facility] CPT-61075 Level 3 Est. Patient 09:03:58 CDT Harinder Hernandez [facility] CPT-12304 Level 3 Est. Patient 14:46:45 PROPERTY ASSESSMENT MONITOR Harinder Hernandez [facility] CPT-40950 Level 3 Est. Patient 09:35:49 PROPERTY ASSESSMENT MONITOR Harinder Hernandez [facility] CPT-42709 Level 3 Est. Patient 09:29:37 PROPERTY ASSESSMENT MONITOR Harinder Hernandez [facility] CPT-06805 Level 3 Est. Patient 15:51:07 CDT Harinder Hernandez [facility] CPT-50518 Level 3 Est. Patient 18:13:13 CDT Harinder Hernandez [facility] CPT-10429 Level 3 Est. Patient 10:44:19 CDT Harinder Hernandez [facility] CPT-59218 Level 4 Est. Patient 10:07:19 PROPERTY ASSESSMENT MONITOR Harinder Hernandez [facility] CPT-55366 Level 3 Est. Patient 15:59:32 PROPERTY ASSESSMENT MONITOR Harinder Cr [facility] Procedures Code Procedure Name Date Entry Date Standard Description CPT-34266 BMP - LAB USE ONLY 16:45:09 PROPERTY ASSESSMENT MONITOR CPT-29637 Port a cath flush 12:00:13 PROPERTY ASSESSMENT MONITOR CPT-TCMM Transitional Care Mgmt-Moderate 11:20:16 PROPERTY ASSESSMENT MONITOR CPT-98892 First Vx - Ix admin for Medicare patients 17:35:15 CDT CPT-63573 Fluzone Preservative Free Intramuscular Suspension 17:35 :15 CDT CPT-78489 Microalbumin - LAB USE ONLY 11:52:05 CDT CPT-TCMM Transitional Care Mgmt-Moderate 11:33:57 CDT CPT-37996 No Charge Offi Visit 14:11:29 CDT CPT-75834 Magnesium - LAB USE ONLY 10:45:44 CDT CPT-15909 Lipid - LAB USE ONLY 10:45:44 CDT CPT-54552 CBC - LAB USE ONLY 10:45:44 CDT CPT-63265 Venipuncture Draw Fee 10:45:43 CDT CPT-12076 Venipuncture Draw Fee 18:21:27 CDT CPT-JTINJ Asp/Joint Injection 18:38:04 CDT CPT-75802 Immunization Each Additional Inj 17:38:04 CDT CPT-03671 Immunization Single Admin 17:38:04 CDT CPT-12698 Prevnar 13 17:38:04 CDT CPT-84361 Fluzone Quadrivalent preservative free (>=3yrs.) 17:38: 04 CDT CPT-80926 No Charge Offi Visit 11:14:03 CDT CPT-30047 Chest 2V Frontal and Lat 14:00:18 CDT CPT-OV Office Visit 16:10:28 CDT CPT-JTINJ Asp/Joint Injection 09:03:57 CDT CPT-Cryo Cryotherapy 09:35:49 PROPERTY ASSESSMENT MONITOR CPT-JTINJ Asp/Joint Injection 09:34:45 PROPERTY ASSESSMENT MONITOR CPT-J2930 Solu Medrol 125 mg (Methyl Prednisolone Sodium Succinate) 20:37:27 CDT CPT-65007 Abx/Therapy Injection 20:37:27 CDT CPT-93148 Port a cath flush 08:15:51 CDT CPT-75110 Port a cath flush 09:54:16 CDT CPT-56653 Port a cath flush 09:38:02 CDT CPT-92413 Port a cath flush 11:00:27 PROPERTY ASSESSMENT MONITOR
--- OUTSIDE RECORDS SUMMARY | 2017-12-28 23:52 | XMS REPORT | Clinical Summary ---
Author Author Admin, QIE Organization [facility] Address Unknown Phone Unavailable Allergies, Adverse Reactions, [...] catheter Back pain, lumbar 724.2 Resolved Harinder Hernadnez DO Lumbago Insomnia 780.52 Resolved Harinder Hernandez [...] , organism unspecified Bacteremia 790.7 Resolved Harinder Hernandez DO Unspecified bacteremia Clostridium difficile colitis [...] Hernandez DO Diarrhea URI 465.9 Active Harinder Hernandez DO Acute upper respiratory infections of unspecified site Encounter for fitting and adjustment of vascular [...] bursitis, left ICD-726.5 Inactive Harinder Hernandez DO Breast mass, right ICD-611.72 Inactive Harinder Hernandez DO Medication List Medication Instructions Start Date Stop Date Generic Name NDC Status Provider Patient Instruction PREDNISONE 20 MG TAB 1 tablet twice daily for 2 days, then 1 tablet once daily for 2 days PREDNISONE 80606098555 Active Harinder Hernandez DO Active ASMANEX 120 METERED DOSES 220 MCG/INH INH AEPB 2 puffs orally twice daily MOMETASONE FUROATE 55546207202 Active Jeri Sosa RPT,RMA Active NIFEDIPINE ER 30 MG ORAL [id number] 1 daily NIFEDIPINE 50432754686 Active Tawnya Pardo MA Active TOPIRAMATE 25 MG TABS 1 tab po BID TOPIRAMATE 08911011701 No Longer Active Nettie Newberry MAHENDRA Active AMLODIPINE BESYLATE 5 MG ORAL TABS Take 1 tab po daily AMLODIPINE BESYLATE 75231704281 No Longer Active Nettie Newberry MAHENDRA Active MECLIZINE HCL 25 MG TAB 1 tablet three times daily for 3 days, then 1/2 tab three times daily for 3 days. MECLIZINE HCL 35422109999 No Longer Active Nettie Newberry CARDIOTHORACIC SURGEON Active AMITRIPTYLINE HCL 25 MG ORAL TABS 1 q hs prn AMITRIPTYLINE HCL 83900080538 No Longer Active Nettie Newberry MAHENDRA Active DILAUDID 2 MG ORAL TABS Take 1/2 tab po every 4 hours as needed for pain 2014 HYDROMORPHONE HCL 31731776281 No Longer Active Nettie Newberry APRN Active CLOPIDOGREL BISULFATE 75 MG ORAL TABS 1 tab by mouth once daily CLOPIDOGREL BISULFATE 96005918289 Active Jeri Sosa RPT,RMA Active ATORVASTATIN CALCIUM 10 MG ORAL TABS 1 at bedtime ATORVASTATIN CALCIUM 52076137794 Active Jeri Sosa RPT,RMA Active LOVASTATIN 40 MG ORAL TABS Take 1 tab po every hs LOVASTATIN 54056179685 No Longer Active Harinder Hernandez DO Active PREDNISONE 20 MG TAB 2 tabs daily for 4 days, 1 tab daily for 4 days, 1/2 tab daily for 4 days PREDNISONE 13569420466 No Longer Active Harinder Hernandez DO Active LEVAQUIN 500 MG ORAL TABS Take 1 tab po daily x 8 days LEVOFLOXACIN 55174293500 No Longer Active Harinder Hernandez DO Active VENTOLIN HFA 108 (90 BASE) MCG/ACT AERS 2 -4 puffs four times a day PRN 2013 ALBUTEROL SULFATE 32237095350 No Longer Active Jeri Sosa RPT,RMA Active ACEBUTOLOL HCL 200 MG CAPS 1 cap in the morning and 2 caps in the evening ACEBUTOLOL HCL 67534456892 No Longer Active Harinder Hernandez DO Active CEFDINIR 300 MG ORAL CAPS take 1 cap po bid x 10 days CEFDINIR 21360633549 No Longer Active Harinder Hernandez DO Active LOVASTATIN 40 MG TABS 1 pill by mouth nightly for cholesterol LOVASTATIN 68275334412 No Longer Active Nettie Newberry APRN Active NITROSTAT 0.4 MG SUBL 1 tab under tongueas needed for chest pain ( may take 3 total, 5 min apart, then call 911) NITROGLYCERIN 25326453792 No Longer Active Nettie Newberry APRN Active POTASSIUM CHLORIDE CR 10 MEQ CPCR 1 capsule by mouth daily 02/14 POTASSIUM CHLORIDE 82368062689 No Longer Active Nettie Newberry APRN Active TESSALON PERLES 100 MG CAP 1 to 2 tablets by mouth 3 times daily as needed for cough BENZONATATE 37387157227 No Longer Active Nettie Newberry APRN Active THEOPHYLLINE ER 200 MG ORAL [id number] Take 1 tab every 12 hours THEOPHYLLINE 78182457274 Active Jeri Sosa RPT,RMA Active PREDNISONE 20 MG TAB 2 po qd x 5 days PREDNISONE 70876266903 No Longer Active Jae Morgan MD Active AZITHROMYCIN 250 MG TABS 2 po qd x 1 day, then 1 po qd x 4 days AZITHROMYCIN 19542185926 No Longer Active Jae Morgan MD Active PREDNISONE 20 MG TAB 1 tab twice daily for 3 day, then one daily for three days PREDNISONE 81322552902 No Longer Active Jae Morgan MD Active SINGULAIR 10 MG TABS 1 pill by mouth every evening for breathing. MONTELUKAST SODIUM 99633562899 Active Tawnya Pardo MA Active TYLENOL 325 MG TAB 3 by mouth q4h as needed ACETAMINOPHEN 57976087013 Active Harinder Hernandez DO Active POTASSIUM CHLORIDE ER 10 MEQ CR-TABS take 1 tab po daily POTASSIUM CHLORIDE 48694630884 No Longer Active Harinder Hernandez DO Active PREDNISONE 20 MG TAB 1 TID x 2 days, then 1 BID x 3 days, then 1 Daily x 3 days, then stop PREDNISONE 99477592685 No Longer Active Jillina Frazell CARDIOTHORACIC SURGEON Active LEVAQUIN 500 MG TAB 1 tablet by mouth daily LEVOFLOXACIN 02059300148 No Longer Active Jillina Frazell CARDIOTHORACIC SURGEON Active NEURONTIN 300 MG CAP 1 cap by mouth three times daily for restless leg 06/22 GABAPENTIN 17528661543 No Longer Active Harinder Hernandez DO Active BENZONATATE 100 MG CAPS 1 cap po TID PRN BENZONATATE 89668990344 No Longer Active Harinder Hernandez DO Active MONTELUKAST SODIUM 10 MG TABS 1 tab po in the evening MONTELUKAST SODIUM 38888537169 No Longer Active Harinder Hernandez DO Active MUPIROCIN 2 % OINT apply to affected area BID x 14 days MUPIROCIN 72350416244 No Longer Active Harinder Hernandez DO Active TYLENOL EXTRA STRENGTH 500 MG TABS as needed ACETAMINOPHEN 05426352041 No Longer Active Harinder Hernandez DO Active PREDNISONE 10 MG TABS 1 tab po daily PREDNISONE 59856580796 No Longer Active Harinder Hernandez DO Active PREDNISONE 20 MG TAB 2 tabs daily for 4 days, 1 tab daily for 4 days, 1/2 tab daily for 4 days PREDNISONE 35599631825 No Longer Active Harinder Hernandez DO Active AZITHROMYCIN 250 MG TABS 2 po qd x 1 day, then 1 po qd x 4 days AZITHROMYCIN 30424381914 No Longer Active Harinder Hernandez DO Active PREDNISONE 20 MG TAB 3 tabs today, then 1 tab twice daily for 3 day, then one daily for three days PREDNISONE 22563752282 No Longer Active Harinder Hernandez DO Active NIFEDIAC CC 30 MG [id number] 1 tablet daily for raynaud's syndrome NIFEDIPINE 34486324774 No Longer Active Tawnya Pardo MA Active AMBIEN 10 MG TAB 1/2 tab by mouth at bedtime as needed for sleep ZOLPIDEM TARTRATE 43044591211 Active Harinder Hernandez DO Active CLONAZEPAM 1 MG TABS 1 tablet at bedtime for insomnia and restless legs 09/14 CLONAZEPAM 11635716077 Active Jeri Sosa RPT,RMA Active CLONAZEPAM 0.5 MG TABS 1 tab po daily CLONAZEPAM 76179478301 No Longer Active Harinder Hernandez DO Active PREDNISONE 10 MG TAB 1 tablet daily for COPD PREDNISONE 33465555789 Active Tawnya Pardo MA Active PROAIR HFA 108 (90 BASE) MCG/ACT AERS 2 puffs four times a day as needed 2012 ALBUTEROL SULFATE 34707178959 Active Tawnya Pardo MA Active FLOVENT HFA 110 MCG/ACT AERO 2 puffs inhaled b.i.d. FLUTICASONE PROPIONATE HFA 03834243932 Active Tawnya Pardo MA Active EPIPEN 0.3 MG/0.3ML URIEL DIRECTED EPINEPHRINE Active Jeri Sosa RPT,RMA Active ACIPHEX 20 MG TBEC 1 tab po daily RABEPRAZOLE SODIUM 19563170949 Active Tawnya Pardo MA Active CLONAZEPAM 0.5 MG TABS 1 tab po daily CLONAZEPAM 0.5 MG TABS 269382 CLONAZEPAM Inactive PREDNISONE 20 MG TAB 3 tabs today, then 1 tab twice daily for 3 day, then one daily for three days PREDNISONE 20 MG TAB 189149 PREDNISONE Inactive PREDNISONE 20 MG TAB 2 tabs daily for 4 days, 1 tab daily for 4 days, 1/2 tab daily for 4 days PREDNISONE 20 MG TAB 685853 PREDNISONE Inactive PREDNISONE 10 MG TABS 1 tab po daily PREDNISONE 10 MG TABS 117166 PREDNISONE Inactive TYLENOL EXTRA STRENGTH 500 MG TABS as needed TYLENOL EXTRA STRENGTH 500 MG TABS 160549 ACETAMINOPHEN Inactive MUPIROCIN 2 % OINT apply to affected area BID x 14 days MUPIROCIN 2 % OINT 118205 MUPIROCIN Inactive MONTELUKAST SODIUM 10 MG TABS 1 tab po in the evening MONTELUKAST SODIUM 10 MG TABS 20010818 MONTELUKAST SODIUM Inactive BENZONATATE 100 MG CAPS 1 cap po TID PRN BENZONATATE 100 MG CAPS 19730321 BENZONATATE Inactive NEURONTIN 300 MG CAP 1 cap by mouth three times daily for restless leg 06/22 NEURONTIN 300 MG CAP 609243 GABAPENTIN Inactive LEVAQUIN 500 MG TAB 1 tablet by mouth daily LEVAQUIN 500 MG TAB 168606 LEVOFLOXACIN Inactive PREDNISONE 20 MG TAB 1 TID x 2 days, then 1 BID x 3 days, then 1 Daily x 3 days, then stop PREDNISONE 20 MG TAB 364872 PREDNISONE Inactive POTASSIUM CHLORIDE ER 10 MEQ CR-TABS take 1 tab po daily POTASSIUM CHLORIDE ER 10 MEQ CR-TABS POTASSIUM CHLORIDE Inactive PREDNISONE 20 MG TAB 1 tab twice daily for 3 day, then one daily for three days PREDNISONE 20 MG TAB 307876 PREDNISONE Inactive TESSALON PERLES 100 MG CAP 1 to 2 tablets by mouth 3 times daily as needed for cough TESSALON PERLES 100 MG CAP 822987 BENZONATATE Inactive POTASSIUM CHLORIDE CR 10 MEQ [...] nightly for cholesterol LOVASTATIN 40 MG TABS 171070 LOVASTATIN Inactive CEFDINIR 300 MG ORAL CAPS take 1 cap po bid x 10 days CEFDINIR 300 MG ORAL CAPS 363058 CEFDINIR Inactive ACEBUTOLOL HCL 200 MG CAPS 1 cap in the morning and 2 caps in the evening ACEBUTOLOL HCL 200 MG CAPS 221669 ACEBUTOLOL HCL Inactive VENTOLIN HFA 108 (90 BASE) MCG/ACT AERS 2 -4 puffs four times a day PRN 2013 VENTOLIN HFA 108 (90 BASE) MCG/ACT AERS ALBUTEROL SULFATE Inactive LEVAQUIN 500 MG ORAL TABS Take 1 tab po daily x 8 days LEVAQUIN 500 MG ORAL TABS 576570 LEVOFLOXACIN Inactive PREDNISONE 20 MG TAB 2 tabs daily for 4 days, 1 tab daily for 4 days, 1/2 tab daily for 4 days PREDNISONE 20 MG TAB 857619 PREDNISONE Inactive LOVASTATIN 40 MG ORAL TABS Take 1 tab po every hs LOVASTATIN 40 MG ORAL TABS 393218 LOVASTATIN Inactive DILAUDID 2 MG ORAL TABS Take 1/2 tab po every 4 hours as needed for pain 2014 DILAUDID 2 MG ORAL TABS 078762 HYDROMORPHONE HCL Inactive AMITRIPTYLINE HCL 25 MG ORAL TABS 1 q hs prn AMITRIPTYLINE HCL 25 MG ORAL TABS 718856 AMITRIPTYLINE HCL Inactive MECLIZINE HCL 25 MG TAB 1 tablet three times daily for 3 days, then 1/2 tab three times daily for 3 days. MECLIZINE HCL 25 MG TAB 822387 MECLIZINE HCL Inactive AMLODIPINE BESYLATE 5 MG ORAL TABS Take 1 tab po daily AMLODIPINE BESYLATE 5 MG ORAL TABS 364355 AMLODIPINE BESYLATE Inactive TOPIRAMATE 25 MG TABS 1 tab po BID TOPIRAMATE 25 MG TABS 350689 TOPIRAMATE Inactive AZITHROMYCIN 250 MG TABS 2 po qd x 1 day, then 1 po qd x 4 days AZITHROMYCIN 250 MG TABS 7928405 AZITHROMYCIN Inactive AZITHROMYCIN 250 MG TABS 2 po qd x 1 day, then 1 po qd x 4 days AZITHROMYCIN 250 MG TABS 4709364 AZITHROMYCIN Inactive PREDNISONE 20 MG TAB 2 po qd x 5 days PREDNISONE 20 MG TAB 050158 PREDNISONE Inactive Vital Signs Date Name Value Unit Range Description blood pressure, diastolic - 8462-4 76 mm[Hg] [...] E&M - 3141-9 126 [lb_av] Weight Measured blood pressure, diastolic - [...] E&M - 3141-9 129 [lb_av] Weight Measured Diagnostic Results Date Name Value Unit Range Description Lab Report: Basic Metabolic Panel - Chemistry sodium, serum 138 mmol/L 571-161 1096/09/24 potassium, serum 3.5 mmol/L 3.5-5.2 chloride, serum [...] 142-424 Encounters Code Encounter Date Provider Facility CPT-37526 Level 3 Est. Patient 12:37:21 CDT Harinder Cr [facility] CPT-75610 Level 3 Est. Patient 18:37:17 CDT Harinder Cr [facility] CPT-87304 Level 4 Est. Patient 11:15:54 CDT Nettie Newberry [facility] CPT-01899 Level 3 Est. Patient 16:42:24 CDT Harinder Cr [facility] CPT-05013 Level 3 Est. Patient 15:03:36 CDT Harinder Cr [facility] CPT-09464 Level 3 Est. Patient 15:03:20 CDT Harinder Cr [facility] CPT-52410 Level 3 Est. Patient 12:14:34 CDT Harinder Hernandez [facility] CPT-40594 Level 3 Est. Patient 13:47:15 CDT Harinder Hernandez [facility] CPT-37266 Level 3 Est. Patient 14:08:24 CDT Harinder Hernandez [facility] CPT-31231 Level 3 Est. Patient 10:07:15 CDT Harinder Cr [facility] CPT-49010 Level 3 Est. Patient 10:06:59 CDT Harinder Cr [facility] CPT-13963 Level 3 Est. Patient 15:53:29 CDT Jae Morgan MD [facility] CPT-07231 Level 3 Est. Patient 17:19:04 CDT Harinder Hernandez [facility] CPT-88720 Level 3 Est. Patient 11:13:01 CDT Harinder Hernandez [facility] CPT-94406 Level 3 Est. Patient 09:03:58 CDT Harinder Cr [facility] CPT-09160 Level 3 Est. Patient 14:46:45 [employer] Harinder Hernandez [facility] CPT-21393 Level 3 Est. Patient 09:35:49 [employer] PROGRAM ASSOCIATE Harinder Cr [facility] CPT-96453 Level 3 Est. Patient 09:29:37 [employer] PROGRAM ASSOCIATE Harinder Hernandez [facility] CPT-46916 Level 3 Est. Patient 15:51:07 CDT Harinder Cr [facility] CPT-67424 Level 3 Est. Patient 18:13:13 CDT Harinder Hernandez [facility] CPT-90180 Level 3 Est. Patient 10:44:19 CDT Harinder Cr [facility] CPT-97166 Level 4 Est. Patient 10:07:19 [employer] PROGRAM ASSOCIATE Harinder Hernandez [facility] CPT-31474 Level 3 Est. Patient 15:59:32 [employer] PROGRAM [employer]OCIATE Harinder Cr [facility] Procedures Code Procedure Name Date Entry Date Standard Description CPT-31639 Venipuncture Draw Fee 18:21:27 CDT CPT-JTINJ Asp/Joint Injection 18:38:04 CDT CPT-49454 Immunization Each Additional Inj 17:38:04 CDT CPT-17830 Immunization Single Admin 17:38:04 CDT CPT-42129 Prevnar 13 17:38:04 CDT CPT-63136 Fluzone Quadrivalent preservative free (>=3yrs.) 17:38: 04 CDT CPT-30129 No Charge Offi Visit 11:14:03 CDT CPT-75040 Chest 2V Frontal and Lat 14:00:18 CDT CPT-OV Office Visit 16:10:28 CDT CPT-JTINJ Asp/Joint Injection 09:03:57 CDT CPT-Cryo Cryotherapy 09:35:49 [employer]IATE CPT-JTINJ Asp/Joint Injection 09:34:45 [employer] PROGRAM ASSOCIATE CPT-J2930 Solu Medrol 125 mg (Methyl Prednisolone Sodium Succinate) 20:37:27 CDT CPT-69729 Abx/Therapy Injection 20:37:27 CDT CPT-63505 Port a cath flush 08:15:51 CDT CPT-56852 Port a cath flush 09:54:16 CDT CPT-45105 Port a cath flush 09:38:02 CDT CPT-54045 Port a cath flush 11:00:27 [employer] PROGRAM [employer]OCIATE
--- OUTSIDE RECORDS SUMMARY | 2017-12-28 23:53 | XMS REPORT | Clinical Summary ---
Author Author Admin, QIE Organization [facility] Address Unknown Phone Unavailable Allergies, Adverse Reactions, [...] pain, right lower quadrant ICD-789.03 Inactive Harinder Shaye David DO Needs vaccination for influenza ICD-V04.81 Inactive Harinder Cr David DO Need for prophylactic vaccination against streptococcus pneumoniae ( Pneumococcus) ICD-V03.82 Inactive Harinder Shaye David PINO Greater trochanteric bursitis, left ICD-726.5 Inactive Harinder Shaye David PINO Medication List Medication Instructions Start Date Stop Date Generic Name NDC Status Provider Patient Instruction ALBUTEROL SULFATE 0.083 % NEBU SOLN 1 vial neb q 4hrs PRN Wheezing Dx: J44.1 ALBUTEROL SULFATE 45981572493 Active Kortney Mccain Active AMLODIPINE BESYLATE 5 MG TABS 1 tablet by mouth daily AMLODIPINE BESYLATE 06836964076 Active Harinder Hernandez DO Active NIFEDIPINE ER 30 MG ORAL [id number] 1 daily NIFEDIPINE 55493183841 No Longer Active Harinder Hernandez DO Active POTASSIUM CHLORIDE 20 MEQ ORAL PACK Take 1 tablet by mouth daily POTASSIUM CHLORIDE 68274843853 Active Ciera Pimentel Active FLOVENT HFA 110 MCG/ACT AERO 2 puffs inhaled b.i.d. FLUTICASONE PROPIONATE HFA 94653824739 Active Harinder Hernandez DO Active POTASSIUM CHLORIDE CR 10 MEQ CPCR 1 capsule by mouth daily POTASSIUM CHLORIDE 14947601963 Active Harinder Hernandez DO Active EPIPEN 2-BRUNA 0.3 MG/0.3ML INJ SOAJ 1 INJ NEEDED EPINEPHRINE 13633869653 Active Harinder Hernandez DO Active PREDNISONE 20 MG TAB 1 tab twice daily for 3 day, then one daily for three days PREDNISONE 70078346714 No Longer Active Harinder Hernandez DO Active PREDNISONE 20 MG TAB 1 tablet twice daily for 2 days, then 1 tablet once daily for 2 days PREDNISONE 89629043818 No Longer Active Harinder Hernandez DO Active ASMANEX 120 METERED DOSES 220 MCG/INH INH AEPB 2 puffs orally twice daily MOMETASONE FUROATE 99899213431 Active Jeri Sosa RPT,RMA Active TOPIRAMATE 25 MG TABS 1 tab po BID TOPIRAMATE 76995502811 No Longer Active Nettie Newberry APRN Active AMLODIPINE BESYLATE 5 MG ORAL TABS Take 1 tab po daily AMLODIPINE BESYLATE 18140543784 No Longer Active Nettie Rohith MAHENDRA Active MECLIZINE HCL 25 MG TAB 1 tablet three times daily for 3 days, then 1/2 tab three times daily for 3 days. MECLIZINE HCL 10981119413 No Longer Active Nettie Newberry APRN Active AMITRIPTYLINE HCL 25 MG ORAL TABS 1 q hs prn AMITRIPTYLINE HCL 39278206897 No Longer Active Nettie Rohith MAHENDRA Active DILAUDID 2 MG ORAL TABS Take 1/2 tab po every 4 hours as needed for pain 2014 HYDROMORPHONE HCL 39881487125 No Longer Active Nettie Newberry APRN Active CLOPIDOGREL BISULFATE 75 MG ORAL TABS 1 tab by mouth once daily CLOPIDOGREL BISULFATE 07847985456 Active Tawnya Pardo MA Active ATORVASTATIN CALCIUM 10 MG ORAL TABS 1 at bedtime ATORVASTATIN CALCIUM 10702895958 Active Tawnya Pardo MA Active LOVASTATIN 40 MG ORAL TABS Take 1 tab po every hs LOVASTATIN 11165332394 No Longer Active Haridner Hernandez DO Active PREDNISONE 20 MG TAB 2 tabs daily for 4 days, 1 tab daily for 4 days, 1/2 tab daily for 4 days PREDNISONE 53513212133 No Longer Active Harinder Hernandez DO Active LEVAQUIN 500 MG ORAL TABS Take 1 tab po daily x 8 days LEVOFLOXACIN 29499619379 No Longer Active Harinder Hernandez DO Active VENTOLIN HFA 108 (90 BASE) MCG/ACT AERS 2 -4 puffs four times a day PRN 2013 ALBUTEROL SULFATE 30318087791 No Longer Active Jeri Sosa RPT,RMA Active ACEBUTOLOL HCL 200 MG CAPS 1 cap in the morning and 2 caps in the evening ACEBUTOLOL HCL 97209687786 No Longer Active Harinder Hernandez DO Active CEFDINIR 300 MG ORAL CAPS take 1 cap po bid x 10 days CEFDINIR 03123276633 No Longer Active Harinder Hernandez DO Active LOVASTATIN 40 MG TABS 1 pill by mouth nightly for cholesterol LOVASTATIN 35216658610 No Longer Active Nettie Newberry APRN Active NITROSTAT 0.4 MG SUBL 1 tab under tongueas needed for chest pain ( may take 3 total, 5 min apart, then call 911) NITROGLYCERIN 10695292936 No Longer Active Nettie Newberry APRN Active POTASSIUM CHLORIDE CR 10 MEQ CPCR 1 capsule by mouth daily 02/14 POTASSIUM CHLORIDE 45074451733 No Longer Active Nettie Newberry APRN Active TESSALON PERLES 100 MG CAP 1 to 2 tablets by mouth 3 times daily as needed for cough BENZONATATE 02288220709 No Longer Active Nettie Newberry APRN Active THEOPHYLLINE ER 200 MG ORAL [id number] Take 1 tab every 12 hours THEOPHYLLINE 80366207752 Active Tawnya Pardo MA Active PREDNISONE 20 MG TAB 2 po qd x 5 days PREDNISONE 37740968687 No Longer Active Jae Morgan MD Active AZITHROMYCIN 250 MG TABS 2 po qd x 1 day, then 1 po qd x 4 days AZITHROMYCIN 74105786272 No Longer Active Jae Morgan MD Active PREDNISONE 20 MG TAB 1 tab twice daily for 3 day, then one daily for three days PREDNISONE 40623640028 No Longer Active Jae Morgan MD Active SINGULAIR 10 MG TABS 1 pill by mouth every evening for breathing. MONTELUKAST SODIUM 59570961281 Active Tawnya Pardo MA Active TYLENOL 325 MG TAB 3 by mouth q4h as needed ACETAMINOPHEN 34225344899 Active Harinder Hernandez DO Active POTASSIUM CHLORIDE ER 10 MEQ CR-TABS take 1 tab po daily POTASSIUM CHLORIDE 67054700021 No Longer Active Harinder Hernandez DO Active PREDNISONE 20 MG TAB 1 TID x 2 days, then 1 BID x 3 days, then 1 Daily x 3 days, then stop PREDNISONE 04312478065 No Longer Active Jillina Frazell ADMINISTRATIVE COORDINATOR Active LEVAQUIN 500 MG TAB 1 tablet by mouth daily LEVOFLOXACIN 34982607851 No Longer Active Jillina Frazell ADMINISTRATIVE COORDINATOR Active NEURONTIN 300 MG CAP 1 cap by mouth three times daily for restless leg 06/22 GABAPENTIN 53474951588 No Longer Active Harinder Hernandez DO Active BENZONATATE 100 MG CAPS 1 cap po TID PRN BENZONATATE 10355664953 No Longer Active Harinder Hernandez DO Active MONTELUKAST SODIUM 10 MG TABS 1 tab po in the evening MONTELUKAST SODIUM 55168561091 No Longer Active Harinder Hernandez DO Active MUPIROCIN 2 % OINT apply to affected area BID x 14 days MUPIROCIN 55804197503 No Longer Active Harinder Hernandez DO Active TYLENOL EXTRA STRENGTH 500 MG TABS as needed ACETAMINOPHEN 66213505578 No Longer Active Harinder Hernandez DO Active PREDNISONE 10 MG TABS 1 tab po daily PREDNISONE 30899864044 No Longer Active Harinder Hernandez DO Active PREDNISONE 20 MG TAB 2 tabs daily for 4 days, 1 tab daily for 4 days, 1/2 tab daily for 4 days PREDNISONE 57599450486 No Longer Active Harinder Hernandez DO Active AZITHROMYCIN 250 MG TABS 2 po qd x 1 day, then 1 po qd x 4 days AZITHROMYCIN 76806663871 No Longer Active Harinder Hernandez DO Active PREDNISONE 20 MG TAB 3 tabs today, then 1 tab twice daily for 3 day, then one daily for three days PREDNISONE 15372765099 No Longer Active Harinder Hernandez DO Active NIFEDIAC CC 30 MG [id number] 1 tablet daily for raynaud's syndrome NIFEDIPINE 98215685539 No Longer Active Tawnya Pardo MA Active AMBIEN 10 MG TAB 1/2 tab by mouth at bedtime as needed for sleep ZOLPIDEM TARTRATE 28134267792 Active Harinder Hernandez DO Active CLONAZEPAM 1 MG TABS 1 tablet at bedtime for insomnia and restless legs 09/14 CLONAZEPAM 79584324133 Active Harinder Hernandez DO Active CLONAZEPAM 0.5 MG TABS 1 tab po daily CLONAZEPAM 55601872270 No Longer Active Harinder Hernandez DO Active PREDNISONE 10 MG TAB 1 tablet daily for COPD PREDNISONE 41177254222 Active Tawnya Pardo MA Active PROAIR HFA 108 (90 BASE) MCG/ACT AERS 2 puffs four times a day as needed 2012 ALBUTEROL SULFATE 74012461525 Active Tawnya Pardo MA Active FLOVENT HFA 110 MCG/ACT AERO 2 puffs inhaled b.i.d. FLUTICASONE PROPIONATE HFA 21487184225 Active Tawnya Pardo MA Active ACIPHEX 20 MG TBEC 1 tab po daily RABEPRAZOLE SODIUM 91248428863 Active Kaylah Newberry Active CLONAZEPAM 0.5 MG TABS 1 tab po daily CLONAZEPAM 0.5 MG TABS 757203 CLONAZEPAM Inactive PREDNISONE 20 MG TAB 3 tabs today, then 1 tab twice daily for 3 day, then one daily for three days PREDNISONE 20 MG TAB 349348 PREDNISONE Inactive PREDNISONE 20 MG TAB 2 tabs daily for 4 days, 1 tab daily for 4 days, 1/2 tab daily for 4 days PREDNISONE 20 MG TAB 538749 PREDNISONE Inactive PREDNISONE 10 MG TABS 1 tab po daily PREDNISONE 10 MG TABS 993249 PREDNISONE Inactive TYLENOL EXTRA STRENGTH 500 MG TABS as needed TYLENOL EXTRA STRENGTH 500 MG TABS 177488 ACETAMINOPHEN Inactive MUPIROCIN 2 % OINT apply to affected area BID x 14 days MUPIROCIN 2 % OINT 578223 MUPIROCIN Inactive MONTELUKAST SODIUM 10 MG TABS 1 tab po in the evening MONTELUKAST SODIUM 10 MG TABS 20010818 MONTELUKAST SODIUM Inactive BENZONATATE 100 MG CAPS 1 cap po TID PRN BENZONATATE 100 MG CAPS 19730321 BENZONATATE Inactive NEURONTIN 300 MG CAP 1 cap by mouth three times daily for restless leg 06/22 NEURONTIN 300 MG CAP 171100 GABAPENTIN Inactive LEVAQUIN 500 MG TAB 1 tablet by mouth daily LEVAQUIN 500 MG TAB 700077 LEVOFLOXACIN Inactive PREDNISONE 20 MG TAB 1 TID x 2 days, then 1 BID x 3 days, then 1 Daily x 3 days, then stop PREDNISONE 20 MG TAB 824060 PREDNISONE Inactive POTASSIUM CHLORIDE ER 10 MEQ CR-TABS take 1 tab po daily POTASSIUM CHLORIDE ER 10 MEQ CR-TABS POTASSIUM CHLORIDE Inactive PREDNISONE 20 MG TAB 1 tab twice daily for 3 day, then one daily for three days PREDNISONE 20 MG TAB 755734 PREDNISONE Inactive TESSALON PERLES 100 MG CAP 1 to 2 tablets by mouth 3 times daily as needed for cough TESSALON PERLES 100 MG CAP 279208 BENZONATATE Inactive POTASSIUM CHLORIDE CR 10 MEQ CPCR 1 capsule by mouth daily 02/14 POTASSIUM CHLORIDE CR 10 MEQ CPCR POTASSIUM CHLORIDE Inactive NITROSTAT 0.4 MG SUBL 1 tab under tongueas needed for chest pain ( may take 3 total, 5 min apart, then call 911) NITROSTAT 0.4 MG SUBL 618505 NITROGLYCERIN Inactive LOVASTATIN 40 MG TABS 1 pill by mouth nightly for cholesterol LOVASTATIN 40 MG TABS 204695 LOVASTATIN Inactive CEFDINIR 300 MG ORAL CAPS take 1 cap po bid x 10 days CEFDINIR 300 MG ORAL CAPS 20021018 CEFDINIR Inactive ACEBUTOLOL HCL 200 MG CAPS 1 cap in the morning and 2 caps in the evening ACEBUTOLOL HCL 200 MG CAPS 017163 ACEBUTOLOL HCL Inactive VENTOLIN HFA 108 (90 BASE) MCG/ACT AERS 2 -4 puffs four times a day PRN 2013 VENTOLIN HFA 108 (90 BASE) MCG/ACT AERS ALBUTEROL SULFATE Inactive LEVAQUIN 500 MG ORAL TABS Take 1 tab po daily x 8 days LEVAQUIN 500 MG ORAL TABS 358980 LEVOFLOXACIN Inactive PREDNISONE 20 MG TAB 2 tabs daily for 4 days, 1 tab daily for 4 days, 1/2 tab daily for 4 days PREDNISONE 20 MG TAB 243703 PREDNISONE Inactive LOVASTATIN 40 MG ORAL TABS Take 1 tab po every hs LOVASTATIN 40 MG ORAL TABS 032486 LOVASTATIN Inactive DILAUDID 2 MG ORAL TABS Take 1/2 tab po every 4 hours as needed for pain 2014 DILAUDID 2 MG ORAL TABS 250958 HYDROMORPHONE HCL Inactive AMITRIPTYLINE HCL 25 MG ORAL TABS 1 q hs prn AMITRIPTYLINE HCL 25 MG ORAL TABS 621878 AMITRIPTYLINE HCL Inactive MECLIZINE HCL 25 MG TAB 1 tablet three times daily for 3 days, then 1/2 tab three times daily for 3 days. MECLIZINE HCL 25 MG TAB 705107 MECLIZINE HCL Inactive AMLODIPINE BESYLATE 5 MG ORAL TABS Take 1 tab po daily AMLODIPINE BESYLATE 5 MG ORAL TABS 271048 AMLODIPINE BESYLATE Inactive TOPIRAMATE 25 MG TABS 1 tab po BID TOPIRAMATE 25 MG TABS 451576 TOPIRAMATE Inactive PREDNISONE 20 MG TAB 1 tablet twice daily for 2 days, then 1 tablet once daily for 2 days PREDNISONE 20 MG TAB 170001 PREDNISONE Inactive PREDNISONE 20 MG TAB 1 tab twice daily for 3 day, then one daily for three days PREDNISONE 20 MG TAB 274387 PREDNISONE Inactive NIFEDIPINE ER 30 MG ORAL [id number] 1 daily NIFEDIPINE ER 30 MG ORAL [id number] NIFEDIPINE Inactive AZITHROMYCIN 250 MG TABS 2 po qd x 1 day, then 1 po qd x 4 days AZITHROMYCIN 250 MG TABS 8571092 AZITHROMYCIN Inactive AZITHROMYCIN 250 MG TABS 2 po qd x 1 day, then 1 po qd x 4 days AZITHROMYCIN 250 MG TABS 7042452 AZITHROMYCIN Inactive PREDNISONE 20 MG TAB 2 po qd x 5 days PREDNISONE 20 MG TAB 914187 PREDNISONE Inactive Vital Signs Date Name Value [...] Panel - Chemistry sodium, serum 137 mmol/L 810-896 0861/01/03 potassium, serum 3.4 mmol/L 3.5-5.2 chloride, serum [...] Panel, Comp. Metabolic Panel, Magnesium - Chemistry creatinine, serum 0.91 mg/dL 0.55-1.30 alanine aminotransferase (SGPT), serum 22 U/L 12-78 aspartate aminotransferase (SGOT), serum 21 U/L 15-37 calcium, serum 8.6 mg/dL 8.5-10.1 bilirubin, serum, total 0.40 mg/dL 0.00-1.00 sodium, serum 142 mmol/L 563-010 8237/08/08 LDL cholesterol, serum 96 mg/dL 0-130 HDL cholesterol, serum 66 mg/dL 32-96 triglyceride, serum, fasting 92 mg/dL 30-200 cholesterol, serum 180 mg/dL 126-757 4787/08/08 urea nitrogen, blood 9 mg/dL 7-18 blood glucose 89 mg/dL 65-110 chloride, serum 105 mmol/L 98-107 potassium, serum 3.7 mmol/L 3.5-5.2 carbon dioxide, venous blood 27.4 mmol/L 21.0-32.0 Lab Report: MICROALB/CREAT W/RATIO - Chemistry albumin/creatinine ratio, urine < 30 mg/g mg/g{creat} 0-29 Lab Report: MICROALB/CREAT W/RATIO - Lab microalbumin, urine 10 0-19 Lab Report: THEOPHYLLINE - Toxicology theophylline level, serum <2.5 mg/L ug/mL 10.0-20.0 Encounters Code Encounter Date Provider Facility CPT-78886 Level 3 Est. Patient 09:58:58 CDT Harinder Cr [facility] CPT-62190 Level 3 Est. Patient 12:37:21 CDT Harinder Cr [facility] CPT-81553 Level 3 Est. Patient 18:37:17 CDT Harinder Cr [facility] CPT-32976 Level 4 Est. Patient 11:15:54 CDT Nettie Newberry [facility] CPT-77566 Level 3 Est. Patient 16:42:24 CDT Harinder Cr [facility] CPT-35376 Level 3 Est. Patient 15:03:36 CDT Harinder Cr [facility] CPT-43097 Level 3 Est. Patient 15:03:20 CDT Harinder Cr [facility] CPT-17232 Level 3 Est. Patient 12:14:34 CDT Harinder Cr [facility] CPT-59138 Level 3 Est. Patient 13:47:15 CDT Harinder Cr [facility] CPT-71370 Level 3 Est. Patient 14:08:24 CDT Harinder Hernandez [facility] CPT-54825 Level 3 Est. Patient 10:07:15 CDT Harinder Hernandez [facility] CPT-00284 Level 3 Est. Patient 10:06:59 CDT Harinder Hernandez [facility] CPT-66573 Level 3 Est. Patient 15:53:29 CDT Jae Morgan MD [facility] CPT-42371 Level 3 Est. Patient 17:19:04 CDT Harinder Cr David [facility] CPT-44867 Level 3 Est. Patient 11:13:01 CDT Harinder Hernandez [facility] CPT-82686 Level 3 Est. Patient 09:03:58 CDT Harinder Hernandez [facility] CPT-66728 Level 3 Est. Patient 14:46:45 CHAIR CAR ATTENDANT Harinder Hernandez [facility] CPT-13474 Level 3 Est. Patient 09:35:49 CHAIR CAR ATTENDANT Harinder Hernandez [facility] CPT-85225 Level 3 Est. Patient 09:29:37 CHAIR CAR ATTENDANT Harinder Hernandez [facility] CPT-69196 Level 3 Est. Patient 15:51:07 CDT Harinder Hernandez [facility] CPT-29772 Level 3 Est. Patient 18:13:13 CDT Harinder Hernandez [facility] CPT-63796 Level 3 Est. Patient 10:44:19 CDT Harinder Shaye David [facility] CPT-16216 Level 4 Est. Patient 10:07:19 CHAIR CAR ATTENDANT Harinder Cr David [facility] CPT-09946 Level 3 Est. Patient 15:59:32 CHAIR CAR ATTENDANT Harinder Shaye David [facility] Procedures Code Procedure Name Date Entry Date Standard Description CPT-20263 BMP - LAB USE ONLY 16:45:09 CHAIR CAR ATTENDANT CPT-65828 Port a cath flush 12:00:13 CHAIR CAR ATTENDANT CPT-TCMM Transitional Care Mgmt-Moderate 11:20:16 CHAIR CAR ATTENDANT CPT-34792 First Vx - Ix admin for Medicare patients 17:35:15 CDT CPT-78288 Fluzone Preservative Free Intramuscular Suspension 17:35 :15 CDT CPT-80456 Microalbumin - LAB USE ONLY 11:52:05 CDT CPT-TCMM Transitional Care Mgmt-Moderate 11:33:57 CDT CPT-74997 No Charge Offi Visit 14:11:29 CDT CPT-03114 Magnesium - LAB USE ONLY 10:45:44 CDT CPT-92662 Lipid - LAB USE ONLY 10:45:44 CDT CPT-85826 CBC - LAB USE ONLY 10:45:44 CDT CPT-23288 Venipuncture Draw Fee 10:45:43 CDT CPT-65953 Venipuncture Draw Fee 18:21:27 CDT CPT-JTINJ Asp/Joint Injection 18:38:04 CDT CPT-66986 Immunization Each Additional Inj 17:38:04 CDT CPT-21720 Immunization Single Admin 17:38:04 CDT CPT-86632 Prevnar 13 17:38:04 CDT CPT-78956 Fluzone Quadrivalent preservative free (>=3yrs.) 17:38: 04 CDT CPT-24376 No Charge Offi Visit 11:14:03 CDT CPT-31245 Chest 2V Frontal and Lat 14:00:18 CDT CPT-OV Office Visit 16:10:28 CDT CPT-JTINJ Asp/Joint Injection 09:03:57 CDT CPT-Cryo Cryotherapy 09:35:49 CHAIR CAR ATTENDANT CPT-JTINJ Asp/Joint Injection 09:34:45 CHAIR CAR ATTENDANT CPT-J2930 Solu Medrol 125 mg (Methyl Prednisolone Sodium Succinate) 20:37:27 CDT CPT-17400 Abx/Therapy Injection 20:37:27 CDT CPT-85639 Port a cath flush 08:15:51 CDT CPT-29452 Port a cath flush 09:54:16 CDT CPT-67298 Port a cath flush 09:38:02 CDT CPT-03972 Port a cath flush 11:00:27 CHAIR CAR ATTENDANT
--- OUTSIDE RECORDS SUMMARY | 2017-12-28 23:54 | XMS REPORT | Clinical Summary ---
Author Author Admin, QIE Organization [facility] [employer]api[employer] Address Unknown Phone Unavailable Allergies, Adverse Reactions, [...] 443.0 Active Harinder Hernandez DO Raynaud's syndrome Encounter for fitting and adjustment of vascular catheter ICD-V58.81 Inactive Harinder Hernandez DO Back pain, lumbar ICD-724.2 Inactive Harinder Cr David DO Insomnia ICD-780.52 Inactive Harinder Cr David DO Sacroiliitis, right ICD-720.2 Inactive Harinder Hernandez DO Biceps tendinitis, left ICD-726.12 Inactive Harinder Hernandez DO Breast mass, right ICD-611.72 Inactive Harinder Cr David DO Benign positional vertigo ICD-386.11 Inactive Harinder Cr David DO Colon cancer screening ICD-V76.51 Inactive Harinder W David DO Screening for malignant neoplasm, colon ICD-V76.51 Inactive Harinder Cr David DO Pneumonia ICD-486 Inactive Harinder Cr David DO Bacteremia ICD-790.7 Inactive Harinder W David DO 10/02 Clostridium difficile colitis ICD-008.45 Inactive Harinder W David DO Abdominal pain, right lower quadrant ICD-789.03 Inactive Harinder Shaye David DO Needs vaccination for influenza ICD-V04.81 Inactive Harinder W David DO Need for prophylactic vaccination against streptococcus pneumoniae ( Pneumococcus) ICD-V03.82 Inactive Harinder Hernandez DO Greater trochanteric bursitis, left ICD-726.5 Inactive Harinder Hernandez DO Nausea and vomiting ICD-787.01 Inactive Jae Morgan MD Diarrhea ICD-787.91 Inactive Jae Morgan MD Medication List Medication Instructions Start Date Stop Date Generic Name NDC Status Provider Patient Instruction ALBUTEROL SULFATE 0.083 % NEBU SOLN 1 vial neb q 4hrs for severe asthma. imperative to have this agent ALBUTEROL SULFATE 91213705689 Active Harinder Hernandez DO Active NIFEDIAC CC 30 MG [id number] 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 NIFEDIPINE 44544004657 Active Harinder Hernandez DO Active AMLODIPINE BESYLATE 5 MG TABS 1 tablet by mouth daily AMLODIPINE BESYLATE 02373896697 No Longer Active Harinder Hernandez DO Active TOPAMAX 25 MG ORAL TABS 1 tab po BID TOPIRAMATE 21948885114 Active Kortney Mccain Active FLUTICASONE PROPIONATE 50 MCG/ACT SUSP 2 sprays per nostril daily PRN Allergies FLUTICASONE PROPIONATE 31208079412 Active Kortney Mccain Active NIFEDIPINE ER 30 MG ORAL [id number] 1 daily NIFEDIPINE 81732017449 No Longer Active Harinder Hernandez DO Active POTASSIUM CHLORIDE 20 MEQ ORAL PACK Take 1 tablet by mouth daily POTASSIUM CHLORIDE 66166462403 Active Ciera Pimentel Active FLOVENT HFA 110 MCG/ACT AERO 2 puffs inhaled b.i.d. FLUTICASONE PROPIONATE HFA 96145014260 Active Harinder Hernandez DO Active POTASSIUM CHLORIDE CR 10 MEQ CPCR 1 capsule by mouth daily POTASSIUM CHLORIDE 32167825001 Active Harinder Hernandez DO Active EPIPEN 2-BRUNA 0.3 MG/0.3ML INJ SOAJ 1 INJ NEEDED EPINEPHRINE 72747346347 Active Harinder Hernandez DO Active PREDNISONE 20 MG TAB 1 tab twice daily for 3 day, then one daily for three days PREDNISONE 51730385916 No Longer Active Harinder Hernandez DO Active PREDNISONE 20 MG TAB 1 tablet twice daily for 2 days, then 1 tablet once daily for 2 days PREDNISONE 82511189203 No Longer Active Harinder Hernandez DO Active ASMANEX 120 METERED DOSES 220 MCG/INH INH AEPB 2 puffs orally twice daily MOMETASONE FUROATE 31368138924 Active Jeri Sosa RPT,RMA Active TOPIRAMATE 25 MG TABS 1 tab po BID TOPIRAMATE 64449735731 No Longer Active Nettie Newberry APRN Active AMLODIPINE BESYLATE 5 MG ORAL TABS Take 1 tab po daily AMLODIPINE BESYLATE 67681817514 No Longer Active Nettie Newberry APRN Active MECLIZINE HCL 25 MG TAB 1 tablet three times daily for 3 days, then 1/2 tab three times daily for 3 days. MECLIZINE HCL 56215705686 No Longer Active Nettie Newberry APRN Active AMITRIPTYLINE HCL 25 MG ORAL TABS 1 q hs prn AMITRIPTYLINE HCL 10787497700 No Longer Active Nettie Newberry APRN Active DILAUDID 2 MG ORAL TABS Take 1/2 tab po every 4 hours as needed for pain 2014 HYDROMORPHONE HCL 57391652430 No Longer Active Nettie Newberry APRN Active CLOPIDOGREL BISULFATE 75 MG ORAL TABS 1 tab by mouth once daily CLOPIDOGREL BISULFATE 70476477822 Active Harinder Hernandez DO Active ATORVASTATIN CALCIUM 10 MG ORAL TABS 1 at bedtime ATORVASTATIN CALCIUM 20425286988 Active Tawnya Pardo MA Active LOVASTATIN 40 MG ORAL TABS Take 1 tab po every hs LOVASTATIN 77416328489 No Longer Active Harinder Hernandez DO Active PREDNISONE 20 MG TAB 2 tabs daily for 4 days, 1 tab daily for 4 days, 1/2 tab daily for 4 days PREDNISONE 88733199875 No Longer Active Harinder Hernandez DO Active LEVAQUIN 500 MG ORAL TABS Take 1 tab po daily x 8 days LEVOFLOXACIN 59432558661 No Longer Active Harinder Hernandez DO Active VENTOLIN HFA 108 (90 BASE) MCG/ACT AERS 2 -4 puffs four times a day PRN 2013 ALBUTEROL SULFATE 92313169289 No Longer Active Jeri Sosa RPT,RMA Active ACEBUTOLOL HCL 200 MG CAPS 1 cap in the morning and 2 caps in the evening ACEBUTOLOL HCL 59896169599 No Longer Active Harinder Hernandez DO Active CEFDINIR 300 MG ORAL CAPS take 1 cap po bid x 10 days CEFDINIR 11128424555 No Longer Active Harinder Hernandez DO Active LOVASTATIN 40 MG TABS 1 pill by mouth nightly for cholesterol LOVASTATIN 44324956412 No Longer Active Nettie Newberry APRN Active NITROSTAT 0.4 MG SUBL 1 tab under tongueas needed for chest pain ( may take 3 total, 5 min apart, then call 911) NITROGLYCERIN 55034342731 No Longer Active Nettie Newberry APRN Active POTASSIUM CHLORIDE CR 10 MEQ CPCR 1 capsule by mouth daily 02/14 POTASSIUM CHLORIDE 50266140754 No Longer Active Nettie Newberry APRN Active TESSALON PERLES 100 MG CAP 1 to 2 tablets by mouth 3 times daily as needed for cough BENZONATATE 15432425364 No Longer Active Nettie Newberry APRN Active THEOPHYLLINE ER 200 MG ORAL [id number] Take 1 tab every 12 hours THEOPHYLLINE 13965016627 Active Tawnya Pardo MA Active PREDNISONE 20 MG TAB 2 po qd x 5 days PREDNISONE 19109795095 No Longer Active Jae Morgan MD Active AZITHROMYCIN 250 MG TABS 2 po qd x 1 day, then 1 po qd x 4 days AZITHROMYCIN 58760365738 No Longer Active Jae Morgan MD Active PREDNISONE 20 MG TAB 1 tab twice daily for 3 day, then one daily for three days PREDNISONE 44513782592 No Longer Active Jae Morgan MD Active SINGULAIR 10 MG TABS 1 pill by mouth every evening for breathing. MONTELUKAST SODIUM 97315178560 Active Tawnya Pardo MA Active TYLENOL 325 MG TAB 3 by mouth q4h as needed ACETAMINOPHEN 80549280812 Active Harinder Hernandez DO Active POTASSIUM CHLORIDE ER 10 MEQ CR-TABS take 1 tab po daily POTASSIUM CHLORIDE 40763497006 No Longer Active Harinder Hernandez DO Active PREDNISONE 20 MG TAB 1 TID x 2 days, then 1 BID x 3 days, then 1 Daily x 3 days, then stop PREDNISONE 79199806247 No Longer Active Jillina Frazell COOLING TOWER TECHNICIAN Active LEVAQUIN 500 MG TAB 1 tablet by mouth daily LEVOFLOXACIN 42372258724 No Longer Active Jillina Frazell COOLING TOWER TECHNICIAN Active NEURONTIN 300 MG CAP 1 cap by mouth three times daily for restless leg 06/22 GABAPENTIN 54519565381 No Longer Active Harinder Hernandez DO Active BENZONATATE 100 MG CAPS 1 cap po TID PRN BENZONATATE 66148871178 No Longer Active Harinder Hernandez DO Active MONTELUKAST SODIUM 10 MG TABS 1 tab po in the evening MONTELUKAST SODIUM 52013488338 No Longer Active Harinder Hernandez DO Active MUPIROCIN 2 % OINT apply to affected area BID x 14 days MUPIROCIN 26358230590 No Longer Active Harinder Hernandez DO Active TYLENOL EXTRA STRENGTH 500 MG TABS as needed ACETAMINOPHEN 36767682707 No Longer Active Harinder Hernandez DO Active PREDNISONE 10 MG TABS 1 tab po daily PREDNISONE 76487064947 No Longer Active Harinder Hernandez DO Active PREDNISONE 20 MG TAB 2 tabs daily for 4 days, 1 tab daily for 4 days, 1/2 tab daily for 4 days PREDNISONE 38334761539 No Longer Active Harinder Hernandez DO Active AZITHROMYCIN 250 MG TABS 2 po qd x 1 day, then 1 po qd x 4 days AZITHROMYCIN 91191914917 No Longer Active Harinder Hernandez DO Active PREDNISONE 20 MG TAB 3 tabs today, then 1 tab twice daily for 3 day, then one daily for three days PREDNISONE 07229955950 No Longer Active Harinder Hernandez DO Active NIFEDIAC CC 30 MG [id number] 1 tablet daily for raynaud's syndrome NIFEDIPINE 32723576455 No Longer Active Tawnya Pardo MA Active AMBIEN 10 MG TAB 1/2 tab by mouth at bedtime as needed for sleep ZOLPIDEM TARTRATE 86537109420 Active Kortney Mccain Active CLONAZEPAM 1 MG TABS 1 tablet at bedtime for insomnia and restless legs 09/14 CLONAZEPAM 42974795754 Active Harinder Hernandez DO Active CLONAZEPAM 0.5 MG TABS 1 tab po daily CLONAZEPAM 99793841271 No Longer Active Harinder Hernandez DO Active PREDNISONE 10 MG TAB 1 tablet daily for COPD PREDNISONE 33206490484 Active Ciera Pimentel Active PROAIR HFA 108 (90 BASE) MCG/ACT AERS 2 puffs four times a day as needed 2012 ALBUTEROL SULFATE 84301313317 Active Harinder Hernandez DO Active FLOVENT HFA 110 MCG/ACT AERO 2 puffs inhaled b.i.d. FLUTICASONE PROPIONATE HFA 27484466400 Active Kortney Mccain Active ACIPHEX 20 MG TBEC 1 tab po daily RABEPRAZOLE SODIUM 40965211093 Active Kaylah Newberry Active CLONAZEPAM 0.5 MG TABS 1 tab po daily CLONAZEPAM 0.5 MG TABS 841385 CLONAZEPAM Inactive PREDNISONE 20 MG TAB 3 tabs today, then 1 tab twice daily for 3 day, then one daily for three days PREDNISONE 20 MG TAB 792806 PREDNISONE Inactive PREDNISONE 20 MG TAB 2 tabs daily for 4 days, 1 tab daily for 4 days, 1/2 tab daily for 4 days PREDNISONE 20 MG TAB 808164 PREDNISONE Inactive PREDNISONE 10 MG TABS 1 tab po daily PREDNISONE 10 MG TABS 251752 PREDNISONE Inactive TYLENOL EXTRA STRENGTH 500 MG TABS as needed TYLENOL EXTRA STRENGTH 500 MG TABS 371063 ACETAMINOPHEN Inactive MUPIROCIN 2 % OINT apply to affected area BID x 14 days MUPIROCIN 2 % OINT 448493 MUPIROCIN Inactive MONTELUKAST SODIUM 10 MG TABS 1 tab po in the evening MONTELUKAST SODIUM 10 MG TABS 20010818 MONTELUKAST SODIUM Inactive BENZONATATE 100 MG CAPS 1 cap po TID PRN BENZONATATE 100 MG CAPS 144527 BENZONATATE Inactive NEURONTIN 300 MG CAP 1 cap by mouth three times daily for restless leg 06/22 NEURONTIN 300 MG CAP 656117 GABAPENTIN Inactive LEVAQUIN 500 MG TAB 1 tablet by mouth daily LEVAQUIN 500 MG TAB 811213 LEVOFLOXACIN Inactive PREDNISONE 20 MG TAB 1 TID x 2 days, then 1 BID x 3 days, then 1 Daily x 3 days, then stop PREDNISONE 20 MG TAB 847941 PREDNISONE Inactive POTASSIUM CHLORIDE ER 10 MEQ CR-TABS take 1 tab po daily POTASSIUM CHLORIDE ER 10 MEQ CR-TABS POTASSIUM CHLORIDE Inactive PREDNISONE 20 MG TAB 1 tab twice daily for 3 day, then one daily for three days PREDNISONE 20 MG TAB 002741 PREDNISONE Inactive TESSALON PERLES 100 MG CAP 1 to 2 tablets by mouth 3 times daily as needed for cough TESSALON PERLES 100 MG CAP 279150 BENZONATATE Inactive POTASSIUM CHLORIDE CR 10 MEQ CPCR 1 capsule by mouth daily 02/14 POTASSIUM CHLORIDE CR 10 MEQ CPCR POTASSIUM CHLORIDE Inactive NITROSTAT 0.4 MG SUBL 1 tab under tongueas needed for chest pain ( may take 3 total, 5 min apart, then call 911) NITROSTAT 0.4 MG SUBL 541917 NITROGLYCERIN Inactive LOVASTATIN 40 MG TABS 1 pill by mouth nightly for cholesterol LOVASTATIN 40 MG TABS 545884 LOVASTATIN Inactive CEFDINIR 300 MG ORAL CAPS take 1 cap po bid x 10 days CEFDINIR 300 MG ORAL CAPS 716451 CEFDINIR Inactive ACEBUTOLOL HCL 200 MG CAPS 1 cap in the morning and 2 caps in the evening ACEBUTOLOL HCL 200 MG CAPS 425377 ACEBUTOLOL HCL Inactive VENTOLIN HFA 108 (90 BASE) MCG/ACT AERS 2 -4 puffs four times a day PRN 2013 VENTOLIN HFA 108 (90 BASE) MCG/ACT AERS ALBUTEROL SULFATE Inactive LEVAQUIN 500 MG ORAL TABS Take 1 tab po daily x 8 days LEVAQUIN 500 MG ORAL TABS 325323 LEVOFLOXACIN Inactive PREDNISONE 20 MG TAB 2 tabs daily for 4 days, 1 tab daily for 4 days, 1/2 tab daily for 4 days PREDNISONE 20 MG TAB 090699 PREDNISONE Inactive LOVASTATIN 40 MG ORAL TABS Take 1 tab po every hs LOVASTATIN 40 MG ORAL TABS 180225 LOVASTATIN Inactive DILAUDID 2 MG ORAL TABS Take 1/2 tab po every 4 hours as needed for pain 2014 DILAUDID 2 MG ORAL TABS 533611 HYDROMORPHONE HCL Inactive AMITRIPTYLINE HCL 25 MG ORAL TABS 1 q hs prn AMITRIPTYLINE HCL 25 MG ORAL TABS 978337 AMITRIPTYLINE HCL Inactive MECLIZINE HCL 25 MG TAB 1 tablet three times daily for 3 days, then 1/2 tab three times daily for 3 days. MECLIZINE HCL 25 MG TAB 477541 MECLIZINE HCL Inactive AMLODIPINE BESYLATE 5 MG ORAL TABS Take 1 tab po daily AMLODIPINE BESYLATE 5 MG ORAL TABS 499729 AMLODIPINE BESYLATE Inactive TOPIRAMATE 25 MG TABS 1 tab po BID TOPIRAMATE 25 MG TABS 584752 TOPIRAMATE Inactive PREDNISONE 20 MG TAB 1 tablet twice daily for 2 days, then 1 tablet once daily for 2 days PREDNISONE 20 MG TAB 216911 PREDNISONE Inactive PREDNISONE 20 MG TAB 1 tab twice daily for 3 day, then one daily for three days PREDNISONE 20 MG TAB 694100 PREDNISONE Inactive NIFEDIPINE ER 30 MG ORAL [id number] 1 daily NIFEDIPINE ER 30 MG ORAL [id number] NIFEDIPINE Inactive AMLODIPINE BESYLATE 5 MG TABS 1 tablet by mouth daily AMLODIPINE BESYLATE 5 MG TABS 696130 AMLODIPINE BESYLATE Inactive AZITHROMYCIN 250 MG TABS 2 po qd x 1 day, then 1 po qd x 4 days AZITHROMYCIN 250 MG TABS 8600107 AZITHROMYCIN Inactive AZITHROMYCIN 250 MG TABS 2 po qd x 1 day, then 1 po qd x 4 days AZITHROMYCIN 250 MG TABS 7049861 AZITHROMYCIN Inactive PREDNISONE 20 MG TAB 2 po qd x 5 days PREDNISONE 20 MG TAB 577484 PREDNISONE Inactive Vital Signs Date Name Value Unit Range Description blood pressure, diastolic - 8462-4 71 mm[Hg] [...] Panel - Chemistry sodium, serum 137 mmol/L 726-669 7888/01/03 chloride, serum 102 mmol/L 98-107 carbon dioxide, venous blood 29.2 mmol/L 21.0-32.0 potassium, serum 3.4 mmol/L 3.5-5.2 blood glucose 87 mg/dL 65-110 urea nitrogen, blood 8 mg/dL 7-18 creatinine, serum 0.82 mg/dL 0.55-1.30 calcium, serum 8.5 mg/dL 8.5-10.1 Lab Report: CBC - Hematology mean corpuscular hemoglobin, RBC 32.8 pg 27.0-31.2 hemoglobin, blood 13.4 g/dL 12.0-16.0 hematocrit, blood 39.2 % 36.0-46.0 mean corpuscular volume, RBC 96 fL 80-97 mean corpuscular hemoglobin concentration, RBC 34.3 G/DL % 31.8- 35.4 red blood cell distribution width 13.9 % 11.6-14.8 platelet count 182 10^3/MM^3 10*3/mm3 154-361 5834/08/08 leukocyte count, blood 5.6 10^3/MM^3 10*3/mm3 4.6-10.2 erythrocyte (RBC) count 4.09 10^6/MM^3 10*6/mm3 4.04-5.48 Lab Report: Lipid Panel, Comp. Metabolic Panel, Magnesium - Chemistry creatinine, serum 0.91 mg/dL 0.55-1.30 alanine aminotransferase (SGPT), serum 22 U/L 12-78 aspartate aminotransferase (SGOT), serum 21 U/L 15-37 calcium, serum 8.6 mg/dL 8.5-10.1 bilirubin, serum, total 0.40 mg/dL 0.00-1.00 sodium, serum 142 mmol/L 291-638 1154/08/08 LDL cholesterol, serum 96 mg/dL 0-130 HDL cholesterol, serum 66 mg/dL 32-96 triglyceride, serum, fasting 92 mg/dL 30-200 cholesterol, serum 180 mg/dL 314-607 5929/08/08 urea nitrogen, blood 9 mg/dL 7-18 blood [...] 10.0-20.0 Encounters Code Encounter Date Provider Facility CPT-52147 Level 4 Est. Patient 10:19:23 CDT Harinder Cr [facility] CPT-11235 Level 3 Est. Patient 09:58:58 CDT [facility] CPT-06466 Level 3 Est. Patient 12:37:21 CDT [facility] CPT-18964 Level 3 Est. Patient 18:37:17 CDT [facility] CPT-59506 Level 4 Est. Patient 11:15:54 CDT Nettie Newberry [facility] CPT-78592 Level 3 Est. Patient 16:42:24 CDT [facility] CPT-97820 Level 3 Est. Patient 15:03:36 CDT [facility] CPT-75693 Level 3 Est. Patient 15:03:20 CDT [facility] CPT-89336 Level 3 Est. Patient 12:14:34 CDT Harinder Hernandez [facility] CPT-83828 Level 3 Est. Patient 13:47:15 CDT Harinder Hernandez [facility] CPT-15725 Level 3 Est. Patient 14:08:24 CDT Harinder Hernandez [facility] CPT-97242 Level 3 Est. Patient 10:07:15 CDT Harinder Hernandez [facility] CPT-95681 Level 3 Est. Patient 10:06:59 CDT Harinder Hernandez [facility] CPT-99024 Level 3 Est. Patient 15:53:29 CDT Jae Morgan [facility] CPT-89870 Level 3 Est. Patient 17:19:04 CDT Harinder Hernandez [facility] CPT-84637 Level 3 Est. Patient 11:13:01 CDT Harinder Hernandez [facility] CPT-35271 Level 3 Est. Patient 09:03:58 CDT [facility] CPT-17246 Level 3 Est. Patient 14:46:45 CREDIT ADMINISTRATION SPECIALIST Harinder Hernandez [facility] CPT-92751 Level 3 Est. Patient 09:35:49 CREDIT ADMINISTRATION SPECIALIST Harinder Hernandez [facility] CPT-71660 Level 3 Est. Patient 09:29:37 CREDIT ADMINISTRATION SPECIALIST Harinder Hernandez [facility] CPT-92220 Level 3 Est. Patient 15:51:07 CDT Harinder Hernandez [facility] CPT-68986 Level 3 Est. Patient 18:13:13 CDT Harinder Shaye Hernandez [facility] CPT-97707 Level 3 Est. Patient 10:44:[address] [facility] CPT-37102 Level 4 Est. Patient 10:07:19 CREDIT ADMINISTRATION SPECIALIST [facility]inder [facility] CPT-58617 Level 3 Est. Patient 15:59:32 CREDIT ADMINISTRATION SPECIALIST Harinder Cr [facility] Procedures Code Procedure Name Date Entry Date Standard Description CPT-14212 Hip, complete, 2-3 views - XRAY USE ONLY 10:28:40 CDT CPT-78867 BMP - LAB USE ONLY 16:45:09 CREDIT ADMINISTRATION SPECIALIST CPT-96605 Port a cath flush 12:00:13 CREDIT ADMINISTRATION SPECIALIST CPT-TCMM Transitional Care Mgmt-Moderate 11:20:16 CREDIT ADMINISTRATION SPECIALIST CPT-22045 First Vx - Ix admin for Medicare patients 17:35:15 CDT CPT-56323 Fluzone Preservative Free Intramuscular Suspension 17:35 :15 CDT CPT-48612 Microalbumin - LAB USE ONLY 11:52:05 CDT CPT-TCMM Transitional Care Mgmt-Moderate 11:33:57 CDT CPT-54294 No Charge Offi Visit 14:11:29 CDT CPT-17596 Magnesium - LAB USE ONLY 10:45:44 CDT CPT-03448 Lipid - LAB USE ONLY 10:45:44 CDT CPT-30138 CBC - LAB USE ONLY 10:45:44 CDT CPT-41310 Venipuncture Draw Fee 10:45:43 CDT CPT-24450 Venipuncture Draw Fee 18:21:27 CDT CPT-JTINJ Asp/Joint Injection 18:38:04 CDT CPT-50094 Immunization Each Additional Inj 17:38:04 CDT CPT-98810 Immunization Single Admin 17:38:04 CDT CPT-97141 Prevnar 13 17:38:04 CDT CPT-89835 Fluzone Quadrivalent preservative free (>=3yrs.) 17:38: 04 CDT CPT-39578 No Charge Offi Visit 11:14:03 CDT CPT-45453 Chest 2V Frontal and Lat 14:00:18 CDT CPT-OV Office Visit 16:10:28 CDT CPT-JTINJ Asp/Joint Injection 09:03:57 CDT CPT-Cryo Cryotherapy 09:35:49 CREDIT ADMINISTRATION SPECIALIST CPT-JTINJ Asp/Joint Injection 09:34:45 CREDIT ADMINISTRATION SPECIALIST CPT-J2930 Solu Medrol 125 mg (Methyl Prednisolone Sodium Succinate) 20:37:27 CDT CPT-06849 Abx/Therapy Injection 20:37:27 CDT CPT-40197 Port a cath flush 08:15:51 CDT CPT-06338 Port a cath flush 09:54:16 CDT CPT-75263 Port a cath flush 09:38:02 CDT CPT-65278 Port a cath flush 11:00:27 CREDIT ADMINISTRATION SPECIALIST
--- OUTSIDE RECORDS SUMMARY | 2017-12-28 23:55 | XMS REPORT | Clinical Summary ---
Author Author Admin, QIE Organization [facility] Address Unknown Phone Unavailable Allergies, Adverse Reactions, Alerts Allergy Name Reaction Description Start Date Severity Status Provider AITHROMYCIN itch Moderate Active Harinder Hernandez DO NEOSPORIN Critical Active Harinder Hernandez DO TRAMADOL HCL Critical Active Harinder Hernandez DO REQUIP Critical Active Harinder W David DO PENICILLIN V POTASSIUM Critical Active Harinder W David DO MORPHINE Critical Active Harinder W David DO LATEX Critical Active Harinder W David DO IBUPROFEN Critical Active Harinder W David DO HYDROCODONE-ACETAMINOPHEN Critical Active Harinder Hernandez DO [facility] CORTISONE LONG-LASTING Critical Active Harinder W David DO AVELOX Critical Active Harinder W David DO DOXYCYCLINE Critical Active Harinder Hernandez DO CODEINE Critical Active Harinder Hernandez DO BENADRYL Critical Active Harinder W David DO BACLOFEN Critical Active Harinder W David DO ASA Critical Active Harinder W David DO PHENERGAN Critical Active Harinder Hernandez DO VALIUM Critical Active Harinder Hernandez DO DEMEROL Critical Active Harinder W David DO SULFA Critical Active Harinder Hernandez DO [...] bacteremia Clostridium difficile colitis 008.45 Resolved Harinder Hernandez DO Intestinal infection due to clostridium difficile Abdominal pain, right lower quadrant 789.03 Resolved Harinder Shaye Hernandez DO Abdominal pain, right lower quadrant Needs vaccination for influenza V04.81 Resolved Harinder Hernandez DO Need for prophylactic vaccination and inoculation against influenza Need for prophylactic vaccination against streptococcus pneumoniae ( Pneumococcus) V03.82 Resolved Harinder Hernandez DO Need for prophylactic vaccination against Streptococcus pneumoniae [pneumococcus ] Greater trochanteric bursitis, left 726.5 Resolved Harinder Shaye Hernandez DO Enthesopathy of hip region Dysphagia 787.20 Active Harinder Shaye Hernandez DO Dysphagia , unspecified Breast mass, right ICD-611.72 Inactive Harinder Hernandez [...] PINO Colon cancer screening ICD-V76.51 Inactive Harinder Shaye David PINO Screening for malignant neoplasm, colon ICD-V76.51 Inactive [...] Provider Patient Instruction PREDNISONE 20 MG TAB 2 tabs daily for 4 days, 1 tab daily for 4 days, 1/2 tab daily for 4 days PREDNISONE 23551908641 Active Harinder Hernandez DO Active LOVASTATIN 40 MG ORAL TABS Take 1 tab po every hs LOVASTATIN 42514662099 Active Johny Dawkins MD Active AMLODIPINE BESYLATE 5 MG ORAL TABS Take 1 tab po daily AMLODIPINE BESYLATE 52718448649 Active Tawnya Pardo MA Active VENTOLIN HFA 108 (90 BASE) MCG/ACT AERS 2 -4 puffs four times a day PRN 2013 ALBUTEROL SULFATE 46070758377 No Longer Active Jeri Sosa RPT,RMA Active DILAUDID 2 MG ORAL TABS Take 1/2 tab po every 4 hours as needed for pain 2014 HYDROMORPHONE HCL 01957957072 Active Harinder Hernandez DO Active ACEBUTOLOL HCL 200 MG CAPS 1 cap in the morning and 2 caps in the evening ACEBUTOLOL HCL 51144009021 No Longer Active Harinder Hernandez DO Active CEFDINIR 300 MG ORAL CAPS take 1 cap po bid x 10 days CEFDINIR 04898654086 No Longer Active Harinder Hernandez DO Active AMITRIPTYLINE HCL 25 MG ORAL TABS 1 q hs prn AMITRIPTYLINE HCL 32567181045 Active Tawnya Pardo MA Active LOVASTATIN 40 MG TABS 1 pill by mouth nightly for cholesterol LOVASTATIN 64115406975 No Longer Active Nettie Newberry APRN Active NITROSTAT 0.4 MG SUBL 1 tab under tongueas needed for chest pain ( may take 3 total, 5 min apart, then call 911) NITROGLYCERIN 35277945341 No Longer Active Nettie Newberry APRN Active POTASSIUM CHLORIDE CR 10 MEQ CPCR 1 capsule by mouth daily 02/14 POTASSIUM CHLORIDE 14449263084 No Longer Active Nettie Rohith MAHENDRA Active TESSALON PERLES 100 MG CAP 1 to 2 tablets by mouth 3 times daily as needed for cough BENZONATATE 33174478325 No Longer Active Nettie Newberry APRN Active THEOPHYLLINE ER 200 MG ORAL [id number] Take 1 tab every 12 hours THEOPHYLLINE 05956236210 Active Tawnya Pardo MA Active PREDNISONE 20 MG TAB 2 po qd x 5 days PREDNISONE 85611901279 No Longer Active Jae Morgan MD Active AZITHROMYCIN 250 MG TABS 2 po qd x 1 day, then 1 po qd x 4 days AZITHROMYCIN 24817236900 No Longer Active Jae Morgan MD Active PREDNISONE 20 MG TAB 1 tab twice daily for 3 day, then one daily for three days PREDNISONE 28248752665 No Longer Active Jae Morgan MD Active MECLIZINE HCL 25 MG TAB 1 tablet three times daily for 3 days, then 1/2 tab three times daily for 3 days. MECLIZINE HCL 50930541252 Active Harinder Hernandez DO Active SINGULAIR 10 MG TABS 1 pill by mouth every evening for breathing. MONTELUKAST SODIUM 87377240353 Active Tawnya Pardo MA Active TYLENOL 325 MG TAB 3 by mouth q4h as needed ACETAMINOPHEN 82715919756 Active Harinder Hernandez DO Active POTASSIUM CHLORIDE ER 10 MEQ CR-TABS take 1 tab po daily POTASSIUM CHLORIDE 67400226974 No Longer Active Harinder Hernandez DO Active PREDNISONE 20 MG TAB 1 TID x 2 days, then 1 BID x 3 days, then 1 Daily x 3 days, then stop PREDNISONE 69325625249 No Longer Active Jillina Frazell BEAM DOFFER Active LEVAQUIN 500 MG TAB 1 tablet by mouth daily LEVOFLOXACIN 67147256663 No Longer Active Jillina Frazell BEAM DOFFER Active NEURONTIN 300 MG CAP 1 cap by mouth three times daily for restless leg 06/22 GABAPENTIN 38542870272 No Longer Active Harinder Hernandez DO Active BENZONATATE 100 MG CAPS 1 cap po TID PRN BENZONATATE 79108383612 No Longer Active Harinder Hernandez DO Active MONTELUKAST SODIUM 10 MG TABS 1 tab po in the evening MONTELUKAST SODIUM 05489198759 No Longer Active Harinder Hernandez DO Active MUPIROCIN 2 % OINT apply to affected area BID x 14 days MUPIROCIN 68622656283 No Longer Active Harinder Hernandez DO Active TYLENOL EXTRA STRENGTH 500 MG TABS as needed ACETAMINOPHEN 03815452453 No Longer Active Harinder Hernandez DO Active PREDNISONE 10 MG TABS 1 tab po daily PREDNISONE 15952732987 No Longer Active Harinder Hernandez DO Active PREDNISONE 20 MG TAB 2 tabs daily for 4 days, 1 tab daily for 4 days, 1/2 tab daily for 4 days PREDNISONE 99299293397 No Longer Active Harinder Hernandez DO Active AZITHROMYCIN 250 MG TABS 2 po qd x 1 day, then 1 po qd x 4 days AZITHROMYCIN 26847129103 No Longer Active Harinder W David DO Active PREDNISONE 20 MG TAB 3 tabs today, then 1 tab twice daily for 3 day, then one daily for three days PREDNISONE 98206745488 No Longer Active Harinder Hernandez DO Active NIFEDIAC CC 30 MG [id number] 1 tablet daily for raynaud's syndrome NIFEDIPINE 38737110792 No Longer Active Tawnya Pardo MA Active AMBIEN 10 MG TAB 1/2 tab by mouth at bedtime as needed for sleep ZOLPIDEM TARTRATE 78293164700 Active Harinder Hernandez DO Active CLONAZEPAM 1 MG TABS 1 tablet at bedtime for insomnia and restless legs 09/14 CLONAZEPAM 59053811923 Active Harinder Hernandez DO Active CLONAZEPAM 0.5 MG TABS 1 tab po daily CLONAZEPAM 44395448551 No Longer Active Harinder Hernandez DO Active PREDNISONE 10 MG TAB 1 tablet daily for COPD PREDNISONE 81022388260 Active Tawnya Pardo MA Active PROAIR HFA 108 (90 BASE) MCG/ACT AERS 2 puffs four times a day as needed 2012 ALBUTEROL SULFATE 39584086641 Active Tawnya Pardo MA Active FLOVENT HFA 110 MCG/ACT AERO 2 puffs inhaled b.i.d. FLUTICASONE PROPIONATE HFA 32659617824 Active Tawnya Pardo MA Active EPIPEN 0.3 MG/0.3ML URIEL DIRECTED EPINEPHRINE Active Demetrius JOHNSON Active ACIPHEX 20 MG TBEC 1 tab po daily RABEPRAZOLE SODIUM 41067213921 Active Tawnya Pardo MA Active TOPIRAMATE 25 MG TABS 1 tab po BID TOPIRAMATE 99149721224 Active Tawnya Pardo MA Active CLONAZEPAM 0.5 MG TABS 1 tab po daily CLONAZEPAM 0.5 MG TABS 456977 CLONAZEPAM Inactive PREDNISONE 20 MG TAB 3 tabs today, then 1 tab twice daily for 3 day, then one daily for three days PREDNISONE 20 MG TAB 364852 PREDNISONE Inactive PREDNISONE 20 MG TAB 2 tabs daily for 4 days, 1 tab daily for 4 days, 1/2 tab daily for 4 days PREDNISONE 20 MG TAB 507514 PREDNISONE Inactive PREDNISONE 10 MG TABS 1 tab po daily PREDNISONE 10 MG TABS 857172 PREDNISONE Inactive TYLENOL EXTRA STRENGTH 500 MG TABS as needed TYLENOL EXTRA STRENGTH 500 MG TABS 796424 ACETAMINOPHEN Inactive MUPIROCIN 2 % OINT apply to affected area BID x 14 days MUPIROCIN 2 % OINT 817286 MUPIROCIN Inactive MONTELUKAST SODIUM 10 MG TABS 1 tab po in the evening MONTELUKAST SODIUM 10 MG TABS 20010818 MONTELUKAST SODIUM Inactive BENZONATATE 100 MG CAPS 1 cap po TID PRN BENZONATATE 100 MG CAPS 690626 BENZONATATE Inactive NEURONTIN 300 MG CAP 1 cap by mouth three times daily for restless leg 06/22 NEURONTIN 300 MG CAP 752291 GABAPENTIN Inactive LEVAQUIN 500 MG TAB 1 tablet by mouth daily LEVAQUIN 500 MG TAB 519751 LEVOFLOXACIN Inactive PREDNISONE 20 MG TAB 1 TID x 2 days, then 1 BID x 3 days, then 1 Daily x 3 days, then stop PREDNISONE 20 MG TAB 296450 PREDNISONE Inactive POTASSIUM CHLORIDE ER 10 MEQ CR-TABS take 1 tab po daily POTASSIUM CHLORIDE ER 10 MEQ CR-TABS POTASSIUM CHLORIDE Inactive PREDNISONE 20 MG TAB 1 tab twice daily for 3 day, then one daily for three days PREDNISONE 20 MG TAB 630143 PREDNISONE Inactive TESSALON PERLES 100 MG CAP 1 to 2 tablets by mouth 3 times daily as needed for cough TESSALON PERLES 100 MG CAP 901523 BENZONATATE Inactive POTASSIUM CHLORIDE CR 10 MEQ [...] nightly for cholesterol LOVASTATIN 40 MG TABS 862619 LOVASTATIN Inactive CEFDINIR 300 MG ORAL CAPS take 1 cap po bid x 10 days CEFDINIR 300 MG ORAL CAPS 157287 CEFDINIR Inactive ACEBUTOLOL HCL 200 MG CAPS 1 cap in the morning and 2 caps in the evening ACEBUTOLOL HCL 200 MG CAPS 290560 ACEBUTOLOL HCL Inactive VENTOLIN HFA 108 (90 BASE) MCG/ACT AERS 2 -4 puffs four times a day PRN 2013 VENTOLIN HFA 108 (90 BASE) MCG/ACT AERS ALBUTEROL SULFATE Inactive AZITHROMYCIN 250 MG TABS 2 po qd x 1 day, then 1 po qd x 4 days AZITHROMYCIN 250 MG TABS 0191477 AZITHROMYCIN Inactive AZITHROMYCIN 250 MG TABS 2 po qd x 1 day, then 1 po qd x 4 days AZITHROMYCIN 250 MG TABS 6930232 AZITHROMYCIN Inactive PREDNISONE 20 MG TAB 2 po qd x 5 days PREDNISONE 20 MG TAB 554371 PREDNISONE Inactive Vital Signs Date Name Value Unit Range Description blood pressure, diastolic - 8462-4 70 mm[Hg] [...] E&M - 3141-9 132.6 [lb_av] Weight Measured blood pressure, diastolic - 8462-4 72 mm[Hg] BP adan blood pressure, systolic - 8480-6 108 mm[Hg] BP sys pulse rate E&M - 8867-4 65 /min Heart rate temperature E&M 97.5 [degF] Body temperature weight E&M - 3141-9 131.2 [lb_av] Weight Measured Diagnostic Results Date Name Value Unit Range Description Lab Report: Basic Metabolic Panel - Chemistry sodium, serum 138 mmol/L 427-639 2307/09/24 potassium, serum 3.5 mmol/L 3.5-5.2 chloride, serum [...] 142-424 Encounters Code Encounter Date Provider Facility CPT-83808 Level 3 Est. Patient 15:03:36 CDT Harinder Hernandez [facility] CPT-76442 Level 3 Est. Patient 15:03:20 CDT Harinder Hernandez [facility] CPT-64463 Level 3 Est. Patient 12:14:34 CDT Harinder Hernandez [facility] CPT-38955 Level 3 Est. Patient 13:47:15 CDT Harinder Hernandez [facility] CPT-84920 Level 3 Est. Patient 14:08:24 CDT Harinder Hernandez [facility] CPT-34829 Level 3 Est. Patient 10:07:15 CDT Harinder Hernandez [facility] CPT-23672 Level 3 Est. Patient 10:06:59 CDT Harinder Hernandez [facility] CPT-29273 Level 3 Est. Patient 15:53:29 CDT Jae Morgan [facility] CPT-06470 Level 3 Est. Patient 17:19:04 CDT Harinder Hernandez [facility] CPT-50341 Level 3 Est. Patient 11:13:01 CDT Harinder Hernandez [facility] CPT-16100 Level 3 Est. Patient 09:03:58 CDT Harinder Hernandez [facility] CPT-12495 Level 3 Est. Patient 14:46:45 RISK AND INSURANCE CONSULTANT Harinder Hernandez [facility] CPT-24358 Level 3 Est. Patient 09:35:49 RISK AND INSURANCE CONSULTANT Harinder Hernandez [facility] CPT-27686 Level 3 Est. Patient 09:29:37 RISK AND INSURANCE CONSULTANT Harinder Hernandez [facility] CPT-39519 Level 3 Est. Patient 15:51:07 CDT Harinder Hernandez [facility] CPT-29009 Level 3 Est. Patient 18:13:13 CDT Harinder Hernandez [facility] CPT-43848 Level 3 Est. Patient 10:44:19 CDT Harinder Cr David [facility] CPT-03978 Level 4 Est. Patient 10:07:19 RISK AND INSURANCE CONSULTANT Harinder Hernandez [facility] CPT-74405 Level 3 Est. Patient 15:59:32 RISK AND INSURANCE CONSULTANT Harinder Hernandez [facility] Procedures Code Procedure Name Date Entry Date Standard Description CPT-83985 Immunization Each Additional Inj 17:38:04 CDT CPT-80938 Immunization Single Admin 17:38:04 CDT CPT-94121 Prevnar 13 17:38:04 CDT CPT-90614 Fluzone Quadrivalent preservative free (>=3yrs.) 17:38: 04 CDT CPT-22970 No Charge Offi Visit 11:14:03 CDT CPT-77783 Chest 2V Frontal and Lat 14:00:18 CDT CPT-OV Office Visit 16:10:28 CDT CPT-JTINJ Asp/Joint Injection 09:03:57 CDT CPT-Cryo Cryotherapy 09:35:49 RISK AND INSURANCE CONSULTANT CPT-JTINJ Asp/Joint Injection 09:34:45 RISK AND INSURANCE CONSULTANT CPT-J2930 Solu Medrol 125 mg (Methyl Prednisolone Sodium Succinate) 20:37:27 CDT CPT-67598 Abx/Therapy Injection 20:37:27 CDT CPT-90492 Port a cath flush 08:15:51 CDT CPT-95413 Port a cath flush 09:54:16 CDT CPT-19804 Port a cath flush 09:38:02 CDT CPT-26268 Port a cath flush 11:00:27 RISK AND INSURANCE CONSULTANT
[2017-12-28] MEDS ORDERED: RT-IPRATROPIUM (ATROVENT) 0.5MG/2.5ML AMP IH ONE (23:56)
[2017-12-28] MEDS ORDERED: RT-ALBUTEROL SULF 2.5 MG/3 ML PRE-MIX VIAL ONE (23:56)
--- OUTSIDE RECORDS SUMMARY | 2017-12-28 23:56 | XMS REPORT | Clinical Summary ---
Author Author Admin, QIE Organization [facility] Address Unknown Phone Unavailable Allergies, Adverse [...] Active Harinder Hernandez DO IBUPROFEN Critical Active Harnider Hernandez DO HYDROCODONE-ACETAMINOPHEN Critical Active Harinder Hernandez [...] tablet once daily for 2 days PREDNISONE 20402055837 Active Harinder Hernandez DO Active ASMANEX 120 METERED DOSES 220 MCG/INH INH AEPB 2 puffs orally twice daily MOMETASONE FUROATE 81794558856 Active Jeri Sosa RPT,RMA Active NIFEDIPINE ER 30 MG ORAL [id number] 1 daily NIFEDIPINE 44264709234 Active Tawnya Pardo MA Active TOPIRAMATE 25 MG TABS 1 tab po BID TOPIRAMATE 28483150011 No Longer Active Nettie King MAHENDRA Active AMLODIPINE BESYLATE 5 MG ORAL TABS Take 1 tab po daily AMLODIPINE BESYLATE 35723039045 No Longer Active Nettieog Newberry APRN Active MECLIZINE HCL 25 MG TAB 1 tablet three times daily for 3 days, then 1/2 tab three times daily for 3 days. MECLIZINE HCL 25769583524 No Longer Active Nettie Newberry MAHENDRA Active AMITRIPTYLINE HCL 25 MG ORAL TABS 1 q hs prn AMITRIPTYLINE HCL 82608925022 No Longer Active Nettie Rohith MAHENDRA Active DILAUDID 2 MG ORAL TABS Take 1/2 tab po every 4 hours as needed for pain 2014 HYDROMORPHONE HCL 82146917848 No Longer Active Nettie Newberry APRN Active CLOPIDOGREL BISULFATE 75 MG ORAL TABS 1 tab by mouth once daily CLOPIDOGREL BISULFATE 37499790797 Active Jeri Sosa RPT,RMA Active ATORVASTATIN CALCIUM 10 MG ORAL TABS 1 at bedtime ATORVASTATIN CALCIUM 68493890909 Active Jeri Sosa RPT,RMA Active LOVASTATIN 40 MG ORAL TABS Take 1 tab po every hs LOVASTATIN 04986087211 No Longer Active Harinder Hernandez DO Active PREDNISONE 20 MG TAB 2 tabs daily for 4 days, 1 tab daily for 4 days, 1/2 tab daily for 4 days PREDNISONE 40054717760 No Longer Active Harinder Hernandez DO Active LEVAQUIN 500 MG ORAL TABS Take 1 tab po daily x 8 days LEVOFLOXACIN 77522801265 No Longer Active Harinder Hernandez DO Active VENTOLIN HFA 108 (90 BASE) MCG/ACT AERS 2 -4 puffs four times a day PRN 2013 ALBUTEROL SULFATE 32559217401 No Longer Active Jrei Sosa RPT,RMA Active ACEBUTOLOL HCL 200 MG CAPS 1 cap in the morning and 2 caps in the evening ACEBUTOLOL HCL 21798773330 No Longer Active Harinder Hernandez DO Active CEFDINIR 300 MG ORAL CAPS take 1 cap po bid x 10 days CEFDINIR 66658824950 No Longer Active Harinder Hernandez DO Active LOVASTATIN 40 MG TABS 1 pill by mouth nightly for cholesterol LOVASTATIN 83181198132 No Longer Active Nettie Newberry APRN Active NITROSTAT 0.4 MG SUBL 1 tab under tongueas needed for chest pain ( may take 3 total, 5 min apart, then call 911) NITROGLYCERIN 74335119672 No Longer Active Nettie Newberry APRN Active POTASSIUM CHLORIDE CR 10 MEQ CPCR 1 capsule by mouth daily 02/14 POTASSIUM CHLORIDE 44811443302 No Longer Active Nettie Newberry APRN Active TESSALON PERLES 100 MG CAP 1 to 2 tablets by mouth 3 times daily as needed for cough BENZONATATE 27154661166 No Longer Active Nettie Newberry APRN Active THEOPHYLLINE ER 200 MG ORAL [id number] Take 1 tab every 12 hours THEOPHYLLINE 43693720795 Active Jeri Sosa RPT,RMA Active PREDNISONE 20 MG TAB 2 po qd x 5 days PREDNISONE 78089209031 No Longer Active Jae Morgan MD Active AZITHROMYCIN 250 MG TABS 2 po qd x 1 day, then 1 po qd x 4 days AZITHROMYCIN 92721525272 No Longer Active Jae Morgan MD Active PREDNISONE 20 MG TAB 1 tab twice daily for 3 day, then one daily for three days PREDNISONE 37484714196 No Longer Active Jae Morgan MD Active SINGULAIR 10 MG TABS 1 pill by mouth every evening for breathing. 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 NEURONTIN 300 MG CAP 1 cap by mouth three times daily for restless leg 06/22 GABAPENTIN 70064839078 No Longer Active Harinder Hernandez DO Active BENZONATATE 100 MG CAPS 1 cap po TID PRN BENZONATATE 30980048710 No Longer Active Harinder Hernandez DO Active MONTELUKAST SODIUM 10 MG TABS 1 tab po in the evening MONTELUKAST SODIUM 70953535975 No Longer Active Harinder Hernandez DO Active MUPIROCIN 2 % OINT apply to affected area BID x 14 days MUPIROCIN 12723632724 No Longer Active Harinder Hernandez DO Active TYLENOL EXTRA STRENGTH 500 MG TABS as needed ACETAMINOPHEN 40413314370 No Longer Active Harinder Hernandez DO Active PREDNISONE 10 MG TABS 1 tab po daily PREDNISONE 36057347875 No Longer Active Harinder Hernandez DO Active PREDNISONE 20 MG TAB 2 tabs daily for 4 days, 1 tab daily for 4 days, 1/2 tab daily for 4 days PREDNISONE 32795978772 No Longer Active Harinder Hernandez DO Active AZITHROMYCIN 250 MG TABS 2 po qd x 1 day, then 1 po qd x 4 days AZITHROMYCIN 78393031128 No Longer Active Harinder Hernandez DO Active PREDNISONE 20 MG TAB 3 tabs today, then 1 tab twice daily for 3 day, then one daily for three days PREDNISONE 15239764956 No Longer Active Harinder Hernandez DO Active NIFEDIAC CC 30 MG [id number] 1 tablet daily for raynaud's syndrome NIFEDIPINE 31120626247 No Longer Active Tawnya Pardo MA Active AMBIEN 10 MG TAB 1/2 tab by mouth at bedtime as needed for sleep ZOLPIDEM TARTRATE 92893233992 Active Harinder Hernandez DO Active CLONAZEPAM 1 MG TABS 1 tablet at bedtime for insomnia and restless legs 09/14 CLONAZEPAM 88281003499 Active Jeri Sosa RPT,RMA Active CLONAZEPAM 0.5 MG TABS 1 tab po daily CLONAZEPAM 88422479054 No Longer Active Harinder Hernandez DO Active PREDNISONE 10 MG TAB 1 tablet daily for COPD PREDNISONE 58148318553 Active Tawnya Pardo MA Active PROAIR HFA 108 (90 BASE) MCG/ACT AERS 2 puffs four times a day as needed 2012 ALBUTEROL SULFATE 00584005375 Active Tawnya Pardo MA Active FLOVENT HFA 110 MCG/ACT AERO 2 puffs inhaled b.i.d. FLUTICASONE PROPIONATE HFA 65413480478 Active Tawnya Pardo MA Active EPIPEN 0.3 MG/0.3ML URIEL DIRECTED EPINEPHRINE Active Jeri Sosa RPT,RMA Active ACIPHEX 20 MG TBEC 1 tab po daily RABEPRAZOLE SODIUM 03519740413 Active Tawnya Pardo MA Active CLONAZEPAM 0.5 MG TABS 1 tab po daily CLONAZEPAM 0.5 MG TABS 445343 CLONAZEPAM Inactive PREDNISONE 20 MG TAB 3 tabs today, then 1 tab twice daily for 3 day, then one daily for three days PREDNISONE 20 MG TAB 330510 PREDNISONE Inactive PREDNISONE 20 MG TAB 2 tabs daily for 4 days, 1 tab daily for 4 days, 1/2 tab daily for 4 days PREDNISONE 20 MG TAB 101809 PREDNISONE Inactive PREDNISONE 10 MG TABS 1 tab po daily PREDNISONE 10 MG TABS 264077 PREDNISONE Inactive TYLENOL EXTRA STRENGTH 500 MG TABS as needed TYLENOL EXTRA STRENGTH 500 MG TABS 746998 ACETAMINOPHEN Inactive MUPIROCIN 2 % OINT apply to affected area BID x 14 days MUPIROCIN 2 % OINT 093166 MUPIROCIN Inactive MONTELUKAST SODIUM 10 MG TABS 1 tab po in the evening MONTELUKAST SODIUM 10 MG TABS 20010818 MONTELUKAST SODIUM Inactive BENZONATATE 100 MG CAPS 1 cap po TID PRN BENZONATATE 100 MG CAPS 19730321 BENZONATATE Inactive NEURONTIN 300 MG CAP 1 cap by mouth three times daily for restless leg 06/22 NEURONTIN 300 MG CAP 137029 GABAPENTIN Inactive LEVAQUIN 500 MG TAB 1 tablet by mouth daily LEVAQUIN 500 MG TAB 445883 LEVOFLOXACIN Inactive PREDNISONE 20 MG TAB 1 TID x 2 days, then 1 BID x 3 days, then 1 Daily x 3 days, then stop PREDNISONE 20 MG TAB 811866 PREDNISONE Inactive POTASSIUM CHLORIDE ER 10 MEQ CR-TABS take 1 tab po daily POTASSIUM CHLORIDE ER 10 MEQ CR-TABS POTASSIUM CHLORIDE Inactive PREDNISONE 20 MG TAB 1 tab twice daily for 3 day, then one daily for three days PREDNISONE 20 MG TAB 651777 PREDNISONE Inactive TESSALON PERLES 100 MG CAP 1 to 2 tablets by mouth 3 times daily as needed for cough TESSALON PERLES 100 MG CAP 320132 BENZONATATE Inactive POTASSIUM CHLORIDE CR 10 MEQ [...] nightly for cholesterol LOVASTATIN 40 MG TABS 998210 LOVASTATIN Inactive CEFDINIR 300 MG ORAL CAPS take 1 cap po bid x 10 days CEFDINIR 300 MG ORAL CAPS 960763 CEFDINIR Inactive ACEBUTOLOL HCL 200 MG CAPS 1 cap in the morning and 2 caps in the evening ACEBUTOLOL HCL 200 MG CAPS 269883 ACEBUTOLOL HCL Inactive VENTOLIN HFA 108 (90 BASE) MCG/ACT AERS 2 -4 puffs four times a day PRN 2013 VENTOLIN HFA 108 (90 BASE) MCG/ACT AERS ALBUTEROL SULFATE Inactive LEVAQUIN 500 MG ORAL TABS Take 1 tab po daily x 8 days LEVAQUIN 500 MG ORAL TABS 549275 LEVOFLOXACIN Inactive PREDNISONE 20 MG TAB 2 tabs daily for 4 days, 1 tab daily for 4 days, 1/2 tab daily for 4 days PREDNISONE 20 MG TAB 821377 PREDNISONE Inactive LOVASTATIN 40 MG ORAL TABS Take 1 tab po every hs LOVASTATIN 40 MG ORAL TABS 167943 LOVASTATIN Inactive DILAUDID 2 MG ORAL TABS Take 1/2 tab po every 4 hours as needed for pain 2014 DILAUDID 2 MG ORAL TABS 276886 HYDROMORPHONE HCL Inactive AMITRIPTYLINE HCL 25 MG ORAL TABS 1 q hs prn AMITRIPTYLINE HCL 25 MG ORAL TABS 351960 AMITRIPTYLINE HCL Inactive MECLIZINE HCL 25 MG TAB 1 tablet three times daily for 3 days, then 1/2 tab three times daily for 3 days. MECLIZINE HCL 25 MG TAB 029500 MECLIZINE HCL Inactive AMLODIPINE BESYLATE 5 MG ORAL TABS Take 1 tab po daily AMLODIPINE BESYLATE 5 MG ORAL TABS 634118 AMLODIPINE BESYLATE Inactive TOPIRAMATE 25 MG TABS 1 tab po BID TOPIRAMATE 25 MG TABS 773982 TOPIRAMATE Inactive AZITHROMYCIN 250 MG TABS 2 po qd x 1 day, then 1 po qd x 4 days AZITHROMYCIN 250 MG TABS 9579599 AZITHROMYCIN Inactive AZITHROMYCIN 250 MG TABS 2 po qd x 1 day, then 1 po qd x 4 days AZITHROMYCIN 250 MG TABS 5867237 AZITHROMYCIN Inactive PREDNISONE 20 MG TAB 2 po qd x 5 days PREDNISONE 20 MG TAB 258770 PREDNISONE Inactive Vital Signs Date Name Value [...] Panel - Chemistry sodium, serum 138 mmol/L 674-413 5649/09/24 potassium, serum 3.5 mmol/L 3.5-5.2 chloride, serum [...] [phone] Encounters Code Encounter Date Provider Facility CPT-60024 Level 3 Est. Patient 12:37:21 CDT [facility] CPT-71853 Level 3 Est. Patient 18:37:17 CDT [facility] CPT-86239 Level 4 Est. Patient 11:15:54 [facility] Patient 16:42:24 CDT [facility] CPT-13492 Level 3 Est. Patient 15:03:36 CDT [facility] CPT-74656 Level 3 Est. Patient 15:03:20 CDT [facility] CPT-82109 Level 3 Est. Patient 12:14:34 CDT Harinder Hernandez [facility] CPT-82803 Level 3 Est. Patient 13:47:15 CDT Harinder Cr [facility] CPT-77174 Level 3 Est. Patient 14:08:24 CDT Harinder Hernandez [facility] CPT-96171 Level 3 Est. Patient 10:07:15 CDT [facility] CPT-49208 Level 3 Est. Patient 10:06:59 CDT [facility] CPT-89290 Level 3 Est. Patient 15:53:29 CDT Jae Morgan MD [facility] CPT-65921 Level 3 Est. Patient 17:19:04 CDT Harinder Hernandez [facility] CPT-84591 Level 3 Est. Patient 11:13:01 CDT Harinder Hernandez [facility] CPT-96724 Level 3 Est. Patient 09:03:58 CDT [facility] CPT-45174 Level 3 Est. Patient 14:46:45 SURVEILLANCE SPECIALIST Harinder Hernandez [facility] CPT-25203 Level 3 Est. Patient 09:35:49 SURVEILLANCE SPECIALIST [facility] CPT-68813 Level 3 Est. Patient 09:29:37 SURVEILLANCE SPECIALIST Harinder Hernandez [facility] CPT-05852 Level 3 Est. Patient 15:51:07 CDT [facility] CPT-96036 Level 3 Est. Patient 18:13:13 CDT Harinder Hernandez [facility] CPT-09097 Level 3 Est. Patient 10:44:19 CDT [facility] Cr [facility] CPT-83371 Level 4 Est. Patient 10:07:19 SURVEILLANCE SPECIALIST Harinder Hernandez [facility] CPT-81837 Level 3 Est. Patient 15:59:32 SURVEILLANCE SPECIALIST Harinder Cr [facility] Procedures Code Procedure Name Date Entry Date Standard Description CPT-47295 Venipuncture Draw Fee 18:21:27 CDT CPT-JTINJ Asp/Joint Injection 18:38:04 CDT CPT-11608 Immunization Each Additional Inj 17:38:04 CDT CPT-75328 Immunization Single Admin 17:38:04 CDT CPT-88839 Prevnar 13 17:38:04 CDT CPT-13550 Fluzone Quadrivalent preservative free (>=3yrs.) 17:38: 04 CDT CPT-33993 No Charge Offi Visit 11:14:03 CDT CPT-92659 Chest 2V Frontal and Lat 14:00:18 CDT CPT-OV Office Visit 16:10:28 CDT CPT-JTINJ Asp/Joint Injection 09:03:57 CDT CPT-Cryo Cryotherapy 09:35:49 SURVEILLANCE SPECIALIST CPT-JTINJ Asp/Joint Injection 09:34:45 SURVEILLANCE SPECIALIST CPT-J2930 Solu Medrol 125 mg (Methyl Prednisolone Sodium Succinate) 20:37:27 CDT CPT-21104 Abx/Therapy Injection 20:37:27 CDT CPT-86163 Port a cath flush 08:15:51 CDT CPT-42024 Port a cath flush 09:54:16 CDT CPT-34983 Port a cath flush 09:38:02 CDT CPT-37585 Port a cath flush 11:00:27 SURVEILLANCE SPECIALIST
--- OUTSIDE RECORDS SUMMARY | 2017-12-28 23:57 | XMS REPORT | Clinical Summary ---
Author Author Admin, QIE Organization [facility] Address Unknown Phone Unavailable Allergies, Adverse [...] Active Harinder Hernandez DO BACLOFEN Critical Active Hairnder Hernandez DO ASA Critical Active Harinder Hernandez [...] Harinder Shaye Hernandez DO Pain in limb Encounter for fitting and adjustment of vascular catheter ICD-V58.81 Inactive Harinder Shaye Hernandez Back pain, lumbar ICD-724.[address] David PINO Insomnia ICD-780.52 Inactive Harinder Shaye David PINO Sacroiliitis, right ICD-720.2 Inactive Ahrinder Shaye Hernandez Biceps tendinitis, left ICD-726.12 Inactive Harinder Shaye David PINO Nausea and vomiting ICD-787.01 Inactive Jae Morgan [...] TAB 1 tablet by mouth daily SPIRONOLACTONE 08254195035 Prince Pimentel Active POTASSIUM CHLORIDE CR 10 MEQ CPCR 1 capsule BID POTASSIUM CHLORIDE 24237943988 Prince Mccain Active FLUOXETINE HCL 10 MG ORAL CAPS 1 po qd for depression/anxiety FLUOXETINE HCL 50387165028 Active Harinder Hernandez DO Active VOLTAREN 1 % GEL apply q 6-8 hour to left arm as needed for pain DICLOFENAC SODIUM 20123413099 Prince Hernandez DO Active LASIX 20 MG TAB 1 tablet by mouth every morning FUROSEMIDE 53753082846 Prince Mccain Active POTASSIUM CHLORIDE 20 MEQ ORAL PACK 1 tab po BID POTASSIUM CHLORIDE 36455984805 Prince Mccain Active ALBUTEROL SULFATE 0.083 % NEBU SOLN 1 vial neb q 4hrs for severe asthma. 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 FLUTICASONE PROPIONATE HFA 89454907790 Active Harinder Hernandez DO Active EPIPEN 2-BRUNA 0.3 MG/0.3ML INJ SOAJ 1 INJ NEEDED EPINEPHRINE 82044774452 Active Harinder Hernandez DO Active PREDNISONE 20 MG TAB 1 tab twice daily for 3 day, then one daily for three days PREDNISONE 91129409340 No Longer Active Harinedr Hernandez DO Active PREDNISONE 20 MG TAB 1 tablet twice daily for 2 days, then 1 tablet once daily for 2 days PREDNISONE 14723372026 No Longer Active Harinder Hernandez DO Active ASMANEX 120 METERED DOSES 220 MCG/INH INH AEPB 2 puffs orally twice daily MOMETASONE FUROATE 85854196861 Active Jeri Sosa LPN Active TOPIRAMATE 25 MG TABS 1 tab po BID TOPIRAMATE 78089425820 No Longer Active Nettie Newberry APRN Active AMLODIPINE BESYLATE 5 MG ORAL TABS Take 1 tab po daily AMLODIPINE BESYLATE 38217283935 No Longer Active Nettie Newberry APRN Active MECLIZINE HCL 25 MG TAB 1 tablet three times daily for 3 days, then 1/2 tab three times daily for 3 days. MECLIZINE HCL 98864364108 No Longer Active Nettie Newberry APRN Active AMITRIPTYLINE HCL 25 MG ORAL TABS 1 q hs prn AMITRIPTYLINE HCL 64361433368 No Longer Active Nettie Newberry APRN Active DILAUDID 2 MG ORAL TABS Take 1/2 tab po every 4 hours as needed for pain 2014 HYDROMORPHONE HCL 51080398098 No Longer Active Nettie Newberry APRN Active CLOPIDOGREL BISULFATE 75 MG ORAL TABS 1 tab by mouth once daily CLOPIDOGREL BISULFATE 36689714799 Active Harinder Hernandez DO Active ATORVASTATIN CALCIUM 10 MG ORAL TABS 1 at bedtime ATORVASTATIN CALCIUM 02644292918 Active Tawnya Pardo MA Active LOVASTATIN 40 MG ORAL TABS Take 1 tab po every hs LOVASTATIN 48864991320 No Longer Active Harinder Hernandez DO Active PREDNISONE 20 MG TAB 2 tabs daily for 4 days, 1 tab daily for 4 days, 1/2 tab daily for 4 days PREDNISONE 75835052373 No Longer Active Harinder Hernandez DO Active LEVAQUIN 500 MG ORAL TABS Take 1 tab po daily x 8 days LEVOFLOXACIN 79369324672 No Longer Active Harinder Hernandez DO Active VENTOLIN HFA 108 (90 BASE) MCG/ACT AERS 2 -4 puffs four times a day PRN 2013 ALBUTEROL SULFATE 31111304116 No Longer Active Jeri Sosa LPN Active ACEBUTOLOL HCL 200 MG CAPS 1 cap in the morning and 2 caps in the evening ACEBUTOLOL HCL 42971756947 No Longer Active Harinder Hernandez DO Active CEFDINIR 300 MG ORAL CAPS take 1 cap po bid x 10 days CEFDINIR 71423884497 No Longer Active Harinder Hernandez DO Active LOVASTATIN 40 MG TABS 1 pill by mouth nightly for cholesterol LOVASTATIN 17493539168 No Longer Active Nettie Newberry APRN Active NITROSTAT 0.4 MG SUBL 1 tab under tongueas needed for chest pain ( may take 3 total, 5 min apart, then call 911) NITROGLYCERIN 05430312980 No Longer Active Nettie Newberry MAHENDRA Active POTASSIUM CHLORIDE CR 10 MEQ CPCR 1 capsule by mouth daily 02/14 POTASSIUM CHLORIDE 82182165085 No Longer Active Nettie Newberry MAHENDRA Active TESSALON PERLES 100 MG CAP 1 to 2 tablets by mouth 3 times daily as needed for cough BENZONATATE 25797630964 No Longer Active Nettie Newberry MAHENDRA Active THEOPHYLLINE ER 200 MG ORAL [id number] Take 1 tab every 12 hours THEOPHYLLINE 39110871078 Active Harinder Hernandez DO Active PREDNISONE 20 MG TAB 2 po qd x 5 days PREDNISONE 58931640207 No Longer Active Jae Morgan MD Active AZITHROMYCIN 250 MG TABS 2 po qd x 1 day, then 1 po qd x 4 days AZITHROMYCIN 79623560882 No Longer Active Jae Morgan MD Active PREDNISONE 20 MG TAB 1 tab twice daily for 3 day, then one daily for three days PREDNISONE 36560656483 No Longer Active Jae Morgan MD Active SINGULAIR 10 MG TABS 1 pill by mouth every evening for breathing. MONTELUKAST SODIUM 28852269679 Active Tawnya Pardo MA Active TYLENOL 325 MG TAB 3 by mouth q4h as needed ACETAMINOPHEN 42271477352 Active Harinder Hernandez DO Active POTASSIUM CHLORIDE ER 10 MEQ CR-TABS take 1 tab po daily POTASSIUM CHLORIDE 42957029603 No Longer Active Harinder Hernandez DO Active PREDNISONE 20 MG TAB 1 TID x 2 days, then 1 BID x 3 days, then 1 Daily x 3 days, then stop PREDNISONE 71624384952 No Longer Active Jillkvng Frashai MCCRAY Active LEVAQUIN 500 MG TAB 1 tablet by mouth daily LEVOFLOXACIN 55508869756 No Longer Active Jillina Frazell [employer] Active NEURONTIN 300 MG CAP 1 cap by mouth three times daily for restless leg 06/22 GABAPENTIN 30043066812 No Longer Active Harinder Hernandez DO Active BENZONATATE 100 MG CAPS 1 cap po TID PRN BENZONATATE 09551479808 No Longer Active Harinder Hernandez DO Active MONTELUKAST SODIUM 10 MG TABS 1 tab po in the evening MONTELUKAST SODIUM 58954349066 No Longer Active Harinder Hernandez DO Active MUPIROCIN 2 % OINT apply to affected area BID x 14 days MUPIROCIN 04660215822 No Longer Active Harinder Hernandez DO Active TYLENOL EXTRA STRENGTH 500 MG TABS as needed ACETAMINOPHEN 05420959482 No Longer Active Harinder Hernandez DO Active PREDNISONE 10 MG TABS 1 tab po daily PREDNISONE 13531360257 No Longer Active Harinder Hernandez DO Active PREDNISONE 20 MG TAB 2 tabs daily for 4 days, 1 tab daily for 4 days, 1/2 tab daily for 4 days PREDNISONE 05108649718 No Longer Active Harinder Hernandez DO Active AZITHROMYCIN 250 MG TABS 2 po qd x 1 day, then 1 po qd x 4 days AZITHROMYCIN 02260631923 No Longer Active Harinder Hernandez DO Active PREDNISONE 20 MG TAB 3 tabs today, then 1 tab twice daily for 3 day, then one daily for three days PREDNISONE 78282779457 No Longer Active Harinder Hernandez DO Active NIFEDIAC CC 30 MG [id number] 1 tablet daily for raynaud's syndrome NIFEDIPINE 33951484678 No Longer Active Tawnya Pardo MA Active AMBIEN 10 MG TAB 1/2 tab by mouth at bedtime as needed for sleep ZOLPIDEM TARTRATE 78605876498 Active Harinder Hernandez DO Active CLONAZEPAM 1 MG TABS 1 tablet at bedtime for insomnia and restless legs 09/14 CLONAZEPAM 63399874689 Active Harindre Hernandez DO Active CLONAZEPAM 0.5 MG TABS 1 tab po daily CLONAZEPAM 64819695401 No Longer Active Harinder Hernandez DO Active PREDNISONE 10 MG TAB 1 tablet daily for COPD PREDNISONE 92712770213 Active Harinder Hernandez DO Active PROAIR HFA 108 (90 BASE) MCG/ACT AERS 2 puffs four times a day as needed 2012 ALBUTEROL SULFATE 37219544012 Active Harinder Hernandez DO Active FLOVENT HFA 110 MCG/ACT AERO 2 puffs inhaled b.i.d. FLUTICASONE PROPIONATE HFA 87355919558 Active Kortney Mccain Active ACIPHEX 20 MG TBEC 1 tab po daily RABEPRAZOLE SODIUM 58936507196 Active Kaylah Newberry Active CLONAZEPAM 0.5 MG TABS 1 tab po daily CLONAZEPAM 0.5 MG TABS 805852 CLONAZEPAM Inactive PREDNISONE 20 MG TAB 3 tabs today, then 1 tab twice daily for 3 day, then one daily for three days PREDNISONE 20 MG TAB 100564 PREDNISONE Inactive PREDNISONE 20 MG TAB 2 tabs daily for 4 days, 1 tab daily for 4 days, 1/2 tab daily for 4 days PREDNISONE 20 MG TAB 560362 PREDNISONE Inactive PREDNISONE 10 MG TABS 1 tab po daily PREDNISONE 10 MG TABS 869804 PREDNISONE Inactive TYLENOL EXTRA STRENGTH 500 MG TABS as needed TYLENOL EXTRA STRENGTH 500 MG TABS 170813 ACETAMINOPHEN Inactive MUPIROCIN 2 % OINT apply to affected area BID x 14 days MUPIROCIN 2 % OINT 346689 MUPIROCIN Inactive MONTELUKAST SODIUM 10 MG TABS 1 tab po in the evening MONTELUKAST SODIUM 10 MG TABS 20010818 MONTELUKAST SODIUM Inactive BENZONATATE 100 MG CAPS 1 cap po TID PRN BENZONATATE 100 MG CAPS 204433 BENZONATATE Inactive NEURONTIN 300 MG CAP 1 cap by mouth three times daily for restless leg 2013/ 12/09 NEURONTIN 300 MG CAP 849352 GABAPENTIN Inactive LEVAQUIN 500 MG TAB 1 tablet by mouth daily LEVAQUIN 500 MG TAB 19980216 LEVOFLOXACIN Inactive PREDNISONE 20 MG TAB 1 TID x 2 days, then 1 BID x 3 days, then 1 Daily x 3 days, then stop PREDNISONE 20 MG TAB 097419 PREDNISONE Inactive POTASSIUM CHLORIDE ER 10 MEQ CR-TABS take 1 tab po daily POTASSIUM CHLORIDE ER 10 MEQ CR-TABS POTASSIUM CHLORIDE Inactive PREDNISONE 20 MG TAB 1 tab twice daily for 3 day, then one daily for three days PREDNISONE 20 MG TAB 741617 PREDNISONE Inactive TESSALON PERLES 100 MG CAP 1 to 2 tablets by mouth 3 times daily as needed for cough TESSALON PERLES 100 MG CAP 738043 BENZONATATE Inactive POTASSIUM CHLORIDE CR 10 MEQ CPCR 1 capsule by mouth daily 02/14 POTASSIUM CHLORIDE CR 10 MEQ CPCR POTASSIUM CHLORIDE Inactive NITROSTAT 0.4 MG SUBL 1 tab under tongueas needed for chest pain ( may take 3 total, 5 min apart, then call 911) NITROSTAT 0.4 MG SUBL 589017 NITROGLYCERIN Inactive LOVASTATIN 40 MG TABS 1 pill by mouth nightly for cholesterol LOVASTATIN 40 MG TABS 542959 LOVASTATIN Inactive CEFDINIR 300 MG ORAL CAPS take 1 cap po bid x 10 days CEFDINIR 300 MG ORAL CAPS 581005 CEFDINIR Inactive ACEBUTOLOL HCL 200 MG CAPS 1 cap in the morning and 2 caps in the evening ACEBUTOLOL HCL 200 MG CAPS 516526 ACEBUTOLOL HCL Inactive VENTOLIN HFA 108 (90 [...] for 4 days PREDNISONE 20 MG TAB 543840 PREDNISONE Inactive LOVASTATIN 40 MG ORAL TABS Take 1 tab po every hs LOVASTATIN 40 MG ORAL TABS 445959 LOVASTATIN Inactive DILAUDID 2 MG ORAL TABS Take 1/2 tab po every 4 hours as needed for pain 2014 DILAUDID 2 MG ORAL TABS 845975 HYDROMORPHONE HCL Inactive AMITRIPTYLINE HCL 25 MG ORAL TABS 1 q hs prn AMITRIPTYLINE HCL 25 MG ORAL TABS 037079 AMITRIPTYLINE HCL Inactive MECLIZINE HCL 25 MG TAB 1 tablet three times daily for 3 days, then 1/2 tab three times daily for 3 days. MECLIZINE HCL 25 MG TAB 706840 MECLIZINE HCL Inactive AMLODIPINE BESYLATE 5 MG ORAL TABS Take 1 tab po daily AMLODIPINE BESYLATE 5 MG ORAL TABS 373037 AMLODIPINE BESYLATE Inactive TOPIRAMATE 25 MG TABS 1 tab po BID TOPIRAMATE 25 MG TABS 065170 TOPIRAMATE Inactive PREDNISONE 20 MG TAB 1 tablet twice daily for 2 days, then 1 tablet once daily for 2 days PREDNISONE 20 MG TAB 442069 PREDNISONE Inactive PREDNISONE 20 MG TAB 1 tab twice daily for 3 day, then one daily for three days PREDNISONE 20 MG TAB 574562 PREDNISONE Inactive NIFEDIPINE ER 30 MG ORAL [id number] 1 daily NIFEDIPINE ER 30 MG ORAL [id number] NIFEDIPINE Inactive AMLODIPINE BESYLATE 5 MG TABS 1 tablet by mouth daily AMLODIPINE BESYLATE 5 MG TABS 844716 AMLODIPINE BESYLATE Inactive AZITHROMYCIN 250 MG TABS 2 po qd x 1 day, then 1 po qd x 4 days AZITHROMYCIN 250 MG TABS 5640066 AZITHROMYCIN Inactive AZITHROMYCIN 250 MG TABS 2 po qd x 1 day, then 1 po qd x 4 days AZITHROMYCIN 250 MG TABS 9681461 AZITHROMYCIN Inactive PREDNISONE 20 MG TAB 2 po qd x 5 days PREDNISONE 20 MG TAB 005072 PREDNISONE Inactive Vital Signs Date Name Value [...] Panel - Chemistry sodium, serum 137 mmol/L 815-138 3430/01/03 potassium, serum 3.4 mmol/L 3.5-5.2 chloride, serum 102 mmol/L 98-107 carbon dioxide, venous blood 29.2 mmol/L 21.0-32.0 blood glucose 87 mg/dL 65-110 calcium, serum 8.5 mg/dL 8.5-10.1 urea nitrogen, blood 8 mg/dL 7-18 creatinine, serum 0.82 mg/dL 0.55-1.30 sodium, serum 140 mmol/L 045-715 5256/07/13 potassium, serum 3.2 mmol/L 3.5-5.2 chloride, serum [...] ... - Chemistry sodium, serum 141 mmol/L 610-934 6110/08/07 carbon dioxide, venous blood 34.0 mmol/L 21.0-32.0 [...] 0-19 Encounters Code Encounter Date Provider Facility CPT-21861 Level 4 Est. Patient 14:45:25 CDT Harinder Hernandez [facility] CPT-35284 Level 4 Est. Patient 09:15:13 CDT Harinder Cr [facility] CPT-03506 Level 3 Est. Patient 11:51:58 CDT Harinder Hernandez [facility] CPT-69614 Level 3 Est. Patient 11:30:05 CDT Harinder Cr [facility] CPT-73749 Level 4 Est. Patient 10:19:23 CDT Harinder Cr [facility] CPT-28488 Level 3 Est. Patient 09:58:58 CDT Harinder Cr [facility] CPT-22749 Level 3 Est. Patient 12:37:21 CDT Harinder Cr [facility] CPT-49628 Level 3 Est. Patient 18:37:17 CDT Harinder Cr [facility] CPT-37468 Level 4 Est. Patient 11:15:54 CDT Nettie Newberry [facility] CPT-32456 Level 3 Est. Patient 16:42:24 CDT Harinder Cr [facility] CPT-33496 Level 3 Est. Patient 15:03:36 CDT Harinder Cr [facility] CPT-54220 Level 3 Est. Patient 15:03:20 CDT Harinder Cr [facility] CPT-14139 Level 3 Est. Patient 12:14:34 CDT Harinder Cr [facility] CPT-14863 Level 3 Est. Patient 13:47:15 CDT Harinder Cr [facility] CPT-59847 Level 3 Est. Patient 14:08:24 CDT Harinder Cr [facility] CPT-31473 Level 3 Est. Patient 10:07:15 CDT Harinder Cr [facility] CPT-85723 Level 3 Est. Patient 10:06:59 CDT Harinder Hernandez [facility] CPT-62922 Level 3 Est. Patient 15:53:29 CDT Jae Morgan MD [facility] CPT-18272 Level 3 Est. Patient 17:19:04 CDT Harinder Hernandez [facility] CPT-63459 Level 3 Est. Patient 11:13:01 CDT Harinder Hernandez [facility] CPT-76508 Level 3 Est. Patient 09:03:58 CDT Harinder Cr [facility] CPT-14809 Level 3 Est. Patient 14:46:45 [employer] Harinder Hernandez [facility] CPT-72963 Level 3 Est. Patient 09:35:49 [employer] Harinder Hernandez [facility] CPT-04862 Level 3 Est. Patient 09:29:37 [employer] Harinder Hernandez [facility] CPT-71736 Level 3 Est. Patient 15:51:07 CDT Harinder Hernandez [facility] CPT-60562 Level 3 Est. Patient 18:13:13 CDT Harinder Hernandez [facility] CPT-85187 Level 3 Est. Patient 10:44:19 CDT Harinder Cr [facility] CPT-46852 Level 4 Est. Patient 10:07:19 [employer] Harinder Hernandez [facility] CPT-51879 Level 3 Est. Patient 15:59:32 [employer] Harinder Cr [facility] Procedures Code Procedure Name Date Entry Date Standard Description CPT-58841 Abd compl w upright - XRAY USE ONLY 14:48:09 CDT 02/18 CPT-01805 Port a cath flush 13:46:05 CDT CPT-84672 Hip, complete, 2-3 views - XRAY USE ONLY 10:28:40 CDT CPT-31647 BMP - LAB USE ONLY 16:45:09 [employer] CPT-37655 Port a cath flush 12:00:13 [employer] CPT-TCMM Transitional Care Mgmt-Moderate 11:20:16 [employer] CPT-81478 First Vx - Ix admin for Medicare patients 17:35:15 CDT CPT-21640 Fluzone Preservative Free Intramuscular Suspension 17:35 :15 CDT CPT-33602 Microalbumin - LAB USE ONLY 11:52:05 CDT CPT-TCMM Transitional Care Mgmt-Moderate 11:33:57 CDT CPT-31198 No Charge Offi Visit 14:11:29 CDT CPT-62291 Magnesium - LAB USE ONLY 10:45:44 CDT CPT-47812 Lipid - LAB USE ONLY 10:45:44 CDT CPT-96476 CBC - LAB USE ONLY 10:45:44 CDT CPT-00971 Venipuncture Draw Fee 10:45:43 CDT CPT-25552 Venipuncture Draw Fee 18:21:27 CDT CPT-JTINJ Asp/Joint Injection 18:38:04 CDT CPT-47873 Immunization Each Additional Inj 17:38:04 CDT CPT-49871 Immunization Single Admin 17:38:04 CDT CPT-60193 Prevnar 13 17:38:04 CDT CPT-01168 Fluzone Quadrivalent preservative free (>=3yrs.) 17:38: 04 CDT CPT-44966 No Charge Offi Visit 11:14:03 CDT CPT-79145 Chest 2V Frontal and Lat 14:00:18 CDT CPT-OV Office Visit 16:10:28 CDT CPT-JTINJ Asp/Joint Injection 09:03:57 CDT CPT-Cryo Cryotherapy 09:35:49 [employer] CPT-JTINJ Asp/Joint Injection 09:34:45 [employer] CPT-J2930 Solu Medrol 125 mg (Methyl Prednisolone Sodium Succinate) 20:37:27 CDT CPT-70249 Abx/Therapy Injection 20:37:27 CDT CPT-97407 Port a cath flush 08:15:51 CDT CPT-04307 Port a cath flush 09:54:16 CDT CPT-43482 Port a cath flush 09:38:02 CDT CPT-92996 Port a cath flush 11:00:27 [employer]
--- OUTSIDE RECORDS SUMMARY | 2017-12-28 23:58 | XMS REPORT | Clinical Summary ---
Author Author Admin, QIE Organization [facility] Address Unknown Phone Unavailable Allergies, Adverse Reactions, [...] Hernandez DO [facility]-LASTING Critical Active Hairnder Hernandez DO AVELOX Critical Active Harinder Hernandez [...] Needs vaccination for influenza V04.81 Resolved Harinder W David DO Need for prophylactic vaccination and [...] adjustment of vascular catheter ICD-V58.81 Inactive Harinder W David DO Back pain, lumbar ICD-724.2 Inactive Harinder Shaye David DO Insomnia ICD-780.52 Inactive Harinder Cr David DO Sacroiliitis, right ICD-720.2 Inactive Harinder Cr David DO Biceps tendinitis, left ICD-726.12 Inactive Harinder Cr David DO Nausea and vomiting ICD-787.01 Inactive Jae Morgan MD Diarrhea ICD-787.91 Inactive Jae Morgan MD Benign positional vertigo ICD-386.11 Inactive Harinder Hernandez DO Colon cancer screening ICD-V76.51 Inactive Harinder Shaye David DO Screening for malignant neoplasm, colon ICD-V76.51 Inactive Harinder W David DO Pneumonia ICD-486 Inactive Harinder Cr [...] Instructions Start Date Stop Date Generic Name ND Status Provider Patient Instruction EPIPEN 2-BRUNA 0.3 MG/0.3ML INJ SOAJ 1 INJ NEEDED EPINEPHRINE 28677421549 Active Tawnya Pardo MA Active PREDNISONE 20 MG TAB 1 tab twice daily for 3 day, then one daily for three days PREDNISONE 81098042772 No Longer Active Harinder Hernandez DO Active PREDNISONE 20 MG TAB 1 tablet twice daily for 2 days, then 1 tablet once daily for 2 days PREDNISONE 61553732752 No Longer Active Harinder Hernandez DO Active ASMANEX 120 METERED DOSES 220 MCG/INH INH AEPB 2 puffs orally twice daily MOMETASONE FUROATE 71328573454 Active Jeri Sosa RPT,RMA Active NIFEDIPINE ER 30 MG ORAL [id number] 1 daily NIFEDIPINE 43616453102 Active Tawnya Pardo MA Active TOPIRAMATE 25 MG TABS 1 tab po BID TOPIRAMATE 12546814995 No Longer Active Nettie Newberry APRN Active AMLODIPINE BESYLATE 5 MG ORAL TABS Take 1 tab po daily AMLODIPINE BESYLATE 69678400028 No Longer Active Nettie Newberry APRN Active MECLIZINE HCL 25 MG TAB 1 tablet three times daily for 3 days, then 1/2 tab three times daily for 3 days. MECLIZINE HCL 74595542708 No Longer Active Nettie Newberry APRN Active AMITRIPTYLINE HCL 25 MG ORAL TABS 1 q hs prn AMITRIPTYLINE HCL 34060163715 No Longer Active Nettie Newberry APRN Active DILAUDID 2 MG ORAL TABS Take 1/2 tab po every 4 hours as needed for pain 2014 HYDROMORPHONE HCL 59351607857 No Longer Active Nettie Newberry APRN Active CLOPIDOGREL BISULFATE 75 MG ORAL TABS 1 tab by mouth once daily CLOPIDOGREL BISULFATE 92017307604 Active Tawnya Pardo MA Active ATORVASTATIN CALCIUM 10 MG ORAL TABS 1 at bedtime ATORVASTATIN CALCIUM 62915468801 Active Tawnya Pardo MA Active LOVASTATIN 40 MG ORAL TABS Take 1 tab po every hs LOVASTATIN 45345006805 No Longer Active Harinder Hernandez DO Active PREDNISONE 20 MG TAB 2 tabs daily for 4 days, 1 tab daily for 4 days, 1/2 tab daily for 4 days PREDNISONE 49206086165 No Longer Active Harinder Hernandez DO Active LEVAQUIN 500 MG ORAL TABS Take 1 tab po daily x 8 days LEVOFLOXACIN 70581937638 No Longer Active Harinder Hernandez DO Active VENTOLIN HFA 108 (90 BASE) MCG/ACT AERS 2 -4 puffs four times a day PRN 2013 ALBUTEROL SULFATE 03676282563 No Longer Active Jeri Sosa RPT,RMA Active ACEBUTOLOL HCL 200 MG CAPS 1 cap in the morning and 2 caps in the evening ACEBUTOLOL HCL 71587604937 No Longer Active Harinder Hernandez DO Active CEFDINIR 300 MG ORAL CAPS take 1 cap po bid x 10 days CEFDINIR 01306241002 No Longer Active Harinder Hernandez DO Active LOVASTATIN 40 MG TABS 1 pill by mouth nightly for cholesterol LOVASTATIN 11815306946 No Longer Active Nettie Newberry APRN Active NITROSTAT 0.4 MG SUBL 1 tab under tongueas needed for chest pain ( may take 3 total, 5 min apart, then call 911) NITROGLYCERIN 28680734751 No Longer Active Nettie Newberry APRN Active POTASSIUM CHLORIDE CR 10 MEQ CPCR 1 capsule by mouth daily 02/14 POTASSIUM CHLORIDE 13040193490 No Longer Active Nettie Newberry APRN Active TESSALON PERLES 100 MG CAP 1 to 2 tablets by mouth 3 times daily as needed for cough BENZONATATE 33910070934 No Longer Active Nettie Newberry APRN Active THEOPHYLLINE ER 200 MG ORAL [id number] Take 1 tab every 12 hours THEOPHYLLINE 42940258098 Active Tawnya Pardo MA Active PREDNISONE 20 MG TAB 2 po qd x 5 days PREDNISONE 12363431174 No Longer Active Jae Morgan MD Active AZITHROMYCIN 250 MG TABS 2 po qd x 1 day, then 1 po qd x 4 days AZITHROMYCIN 30764898713 No Longer Active Jae Morgan MD Active PREDNISONE 20 MG TAB 1 tab twice daily for 3 day, then one daily for three days PREDNISONE 62896143349 No Longer Active Jae Morgan MD Active SINGULAIR 10 MG TABS 1 pill by mouth every evening for breathing. MONTELUKAST SODIUM 37835717902 Active Tawnya Pardo MA Active TYLENOL 325 MG TAB 3 by mouth q4h as needed ACETAMINOPHEN 77523620093 Active Harinder Hernandez DO Active POTASSIUM CHLORIDE ER 10 MEQ CR-TABS take 1 tab po daily POTASSIUM CHLORIDE 92384019633 No Longer Active Harinder Hernandez DO Active PREDNISONE 20 MG TAB 1 TID x 2 days, then 1 BID x 3 days, then 1 Daily x 3 days, then stop PREDNISONE 00611590692 No Longer Active John Montemayor APRN Active LEVAQUIN 500 MG TAB 1 tablet by mouth daily LEVOFLOXACIN 15861028944 No Longer Active Jillkvng Montemayor APRN Active NEURONTIN 300 MG CAP 1 cap by mouth three times daily for restless leg 06/22 GABAPENTIN 50551496199 No Longer Active Harinder Hernandez DO Active BENZONATATE 100 MG CAPS 1 cap po TID PRN BENZONATATE 63870344486 No Longer Active Harinder Hernandez DO Active MONTELUKAST SODIUM 10 MG TABS 1 tab po in the evening MONTELUKAST SODIUM 07555225756 No Longer Active Harinder Hernandez DO Active MUPIROCIN 2 % OINT apply to affected area BID x 14 days MUPIROCIN 43621875034 No Longer Active Harinder Hernandez DO Active TYLENOL EXTRA STRENGTH 500 MG TABS as needed ACETAMINOPHEN 73504497339 No Longer Active Harinder Hernandez DO Active PREDNISONE 10 MG TABS 1 tab po daily PREDNISONE 58370535155 No Longer Active Harinder Hernandez DO Active PREDNISONE 20 MG TAB 2 tabs daily for 4 days, 1 tab daily for 4 days, 1/2 tab daily for 4 days PREDNISONE 01160398346 No Longer Active Harinder Hernandez DO Active AZITHROMYCIN 250 MG TABS 2 po qd x 1 day, then 1 po qd x 4 days AZITHROMYCIN 22084638422 No Longer Active Harinder Hernandez DO Active PREDNISONE 20 MG TAB 3 tabs today, then 1 tab twice daily for 3 day, then one daily for three days PREDNISONE 56890981269 No Longer Active Harinder Hernandez DO Active NIFEDIAC CC 30 MG [id number] 1 tablet daily for raynaud's syndrome NIFEDIPINE 16082480071 No Longer Active Tawnya Pardo MA Active AMBIEN 10 MG TAB 1/2 tab by mouth at bedtime as needed for sleep ZOLPIDEM TARTRATE 28043495213 Active Harinder Hernandez DO Active CLONAZEPAM 1 MG TABS 1 tablet at bedtime for insomnia and restless legs 09/14 CLONAZEPAM 39648415302 Active Kaylah Newberry Active CLONAZEPAM 0.5 MG TABS 1 tab po daily CLONAZEPAM 05579853965 No Longer Active Harinder Hernandez DO Active PREDNISONE 10 MG TAB 1 tablet daily for COPD PREDNISONE 95012176853 Active Tawnya Pardo MA Active PROAIR HFA 108 (90 BASE) MCG/ACT AERS 2 puffs four times a day as needed 2012 ALBUTEROL SULFATE 44365005060 Active Tawnya Pardo MA Active FLOVENT HFA 110 MCG/ACT AERO 2 puffs inhaled b.i.d. FLUTICASONE PROPIONATE HFA 80500782294 Active Tawnya Pardo MA Active ACIPHEX 20 MG TBEC 1 tab po daily RABEPRAZOLE SODIUM 30877482563 Active Tawnya Pardo MA Active CLONAZEPAM 0.5 MG TABS 1 tab po daily CLONAZEPAM 0.5 MG TABS 432578 CLONAZEPAM Inactive PREDNISONE 20 MG TAB 3 tabs today, then 1 tab twice daily for 3 day, then one daily for three days PREDNISONE 20 MG TAB 881780 PREDNISONE Inactive PREDNISONE 20 MG TAB 2 tabs daily for 4 days, 1 tab daily for 4 days, 1/2 tab daily for 4 days PREDNISONE 20 MG TAB 890538 PREDNISONE Inactive PREDNISONE 10 MG TABS 1 tab po daily PREDNISONE 10 MG TABS 300889 PREDNISONE Inactive TYLENOL EXTRA STRENGTH 500 MG TABS as needed TYLENOL EXTRA STRENGTH 500 MG TABS 706678 ACETAMINOPHEN Inactive MUPIROCIN 2 % OINT apply to affected area BID x 14 days MUPIROCIN 2 % OINT 819080 MUPIROCIN Inactive MONTELUKAST SODIUM 10 MG TABS 1 tab po in the evening MONTELUKAST SODIUM 10 MG TABS 721801 MONTELUKAST SODIUM Inactive BENZONATATE 100 MG CAPS 1 cap po TID PRN BENZONATATE 100 MG CAPS 373213 BENZONATATE Inactive NEURONTIN 300 MG CAP 1 cap by mouth three times daily for restless leg 06/22 NEURONTIN 300 MG CAP 999982 GABAPENTIN Inactive LEVAQUIN 500 MG TAB 1 tablet by mouth daily LEVAQUIN 500 MG TAB 280049 LEVOFLOXACIN Inactive PREDNISONE 20 MG TAB 1 TID x 2 days, then 1 BID x 3 days, then 1 Daily x 3 days, then stop PREDNISONE 20 MG TAB 551311 PREDNISONE Inactive POTASSIUM CHLORIDE ER 10 MEQ CR-TABS take 1 tab po daily POTASSIUM CHLORIDE ER 10 MEQ CR-TABS POTASSIUM CHLORIDE Inactive PREDNISONE 20 MG TAB 1 tab twice daily for 3 day, then one daily for three days PREDNISONE 20 MG TAB 512033 PREDNISONE Inactive TESSALON PERLES 100 MG CAP 1 to 2 tablets by mouth 3 times daily as needed for cough TESSALON PERLES 100 MG CAP 065922 BENZONATATE Inactive POTASSIUM CHLORIDE CR 10 MEQ [...] nightly for cholesterol LOVASTATIN 40 MG TABS 403658 LOVASTATIN Inactive CEFDINIR 300 MG ORAL CAPS take 1 cap po bid x 10 days CEFDINIR 300 MG ORAL CAPS 093896 CEFDINIR Inactive ACEBUTOLOL HCL 200 MG CAPS 1 cap in the morning and 2 caps in the evening ACEBUTOLOL HCL 200 MG CAPS 020476 ACEBUTOLOL HCL Inactive VENTOLIN HFA 108 (90 BASE) MCG/ACT AERS 2 -4 puffs four times a day PRN 2013 VENTOLIN HFA 108 (90 BASE) MCG/ACT AERS ALBUTEROL SULFATE Inactive LEVAQUIN 500 MG ORAL TABS Take 1 tab po daily x 8 days LEVAQUIN 500 MG ORAL TABS 339661 LEVOFLOXACIN Inactive PREDNISONE 20 MG TAB 2 tabs daily for 4 days, 1 tab daily for 4 days, 1/2 tab daily for 4 days PREDNISONE 20 MG TAB 083696 PREDNISONE Inactive LOVASTATIN 40 MG ORAL TABS Take 1 tab po every hs LOVASTATIN 40 MG ORAL TABS 275072 LOVASTATIN Inactive DILAUDID 2 MG ORAL TABS Take 1/2 tab po every 4 hours as needed for pain 2014 DILAUDID 2 MG ORAL TABS 768634 HYDROMORPHONE HCL Inactive AMITRIPTYLINE HCL 25 MG ORAL TABS 1 q hs prn AMITRIPTYLINE HCL 25 MG ORAL TABS 995754 AMITRIPTYLINE HCL Inactive MECLIZINE HCL 25 MG TAB 1 tablet three times daily for 3 days, then 1/2 tab three times daily for 3 days. MECLIZINE HCL 25 MG TAB 902801 MECLIZINE HCL Inactive AMLODIPINE BESYLATE 5 MG ORAL TABS Take 1 tab po daily AMLODIPINE BESYLATE 5 MG ORAL TABS 031157 AMLODIPINE BESYLATE Inactive TOPIRAMATE 25 MG TABS 1 tab po BID TOPIRAMATE 25 MG TABS 984766 TOPIRAMATE Inactive PREDNISONE 20 MG TAB 1 tablet twice daily for 2 days, then 1 tablet once daily for 2 days PREDNISONE 20 MG TAB 543708 PREDNISONE Inactive PREDNISONE 20 MG TAB 1 tab twice daily for 3 day, then one daily for three days PREDNISONE 20 MG TAB 118359 PREDNISONE Inactive AZITHROMYCIN 250 MG TABS 2 po qd x 1 day, then 1 po qd x 4 days AZITHROMYCIN 250 MG TABS 1638297 AZITHROMYCIN Inactive AZITHROMYCIN 250 MG TABS 2 po qd x 1 day, then 1 po qd x 4 days AZITHROMYCIN 250 MG TABS 5268012 AZITHROMYCIN Inactive PREDNISONE 20 MG TAB 2 po qd x 5 days PREDNISONE 20 MG TAB 636032 PREDNISONE Inactive Vital Signs Date Name Value [...] E&M - 3141-9 120 [lb_av] Weight Measured Diagnostic Results Date Name Value Unit Range Description Lab Report: Basic Metabolic Panel - Chemistry sodium, serum 138 mmol/L 017-438 1221/09/24 potassium, serum 3.5 mmol/L 3.5-5.2 chloride, serum 102 mmol/L 98-107 carbon dioxide, venous blood 29.1 mmol/L 21.0-32.0 blood glucose 81 mg/dL 65-110 calcium, serum 8.7 mg/dL 8.5-10.1 urea nitrogen, blood 6 mg/dL 7-18 creatinine, serum 0.77 mg/dL 0.55-1.30 Lab Report: CBC - Hematology [...] count 182 10^3/MM^3 10*3/mm3 142-424 Lab Report: CBC W/DIFF - Hematology leukocyte [...] 11.6-14.8 platelet count 326 10^3/MM^3 10*3/mm3 142-424 Lab Report: Lipid Panel, Comp. Metabolic Panel, Magnesium - Chemistry cholesterol, serum 180 mg/dL 070-859 4363/08/08 triglyceride, serum, fasting 92 mg/dL 30-200 HDL cholesterol, serum 66 mg/dL 32-96 LDL cholesterol, serum 96 mg/dL 0-130 sodium, serum 142 mmol/L 584-863 4911/08/08 carbon dioxide, venous blood 27.4 mmol/L 21.0-32.0 potassium, serum 3.7 mmol/L 3.5-5.2 chloride, serum 105 mmol/L 98-107 blood glucose 89 mg/dL 65-110 urea nitrogen, blood 9 mg/dL 7-18 creatinine, serum 0.91 mg/dL 0.55-1.30 alanine aminotransferase (SGPT), serum 22 U/L 12-78 aspartate aminotransferase (SGOT), serum 21 U/L 15-37 calcium, serum 8.6 mg/dL 8.5-10.1 bilirubin, serum, total 0.40 mg/dL 0.00-1.00 Lab Report: THEOPHYLLINE - Toxicology theophylline level, serum <2.5 mg/L ug/mL 10.0-20.0 Encounters Code Encounter Date Provider Facility CPT-42409 Level 3 Est. Patient 09:58:58 CDT Harinder Cr [facility] CPT-73017 Level 3 Est. Patient 12:37:21 CDT Harinder Cr [facility] CPT-19241 Level 3 Est. Patient 18:37:17 CDT Harinder Cr [facility] CPT-69421 Level 4 Est. Patient 11:15:54 CDT Nettie Newberry [facility] CPT-72195 Level 3 Est. Patient 16:42:24 CDT Harinder Cr [facility] CPT-72382 Level 3 Est. Patient 15:03:36 CDT Harinder Cr [facility] CPT-37903 Level 3 Est. Patient 15:03:20 CDT Harinder Cr [facility] CPT-20375 Level 3 Est. Patient 12:14:34 CDT Harinder Cr [facility] CPT-90132 Level 3 Est. Patient 13:47:15 CDT Harinder Shaye [facility] CPT-78292 Level 3 Est. Patient 14:08:24 CDT Harinder Shaye [facility] CPT-37652 Level 3 Est. Patient 10:07:15 CDT Harinder Cr [facility] CPT-19934 Level 3 Est. Patient 10:06:59 CDT Harinder Cr [facility] CPT-79820 Level 3 Est. Patient 15:53:29 CDT Jae Morgan MD [facility] CPT-79821 Level 3 Est. Patient 17:19:04 CDT Harinder Hernandez [facility] CPT-74043 Level 3 Est. Patient 11:13:01 CDT Harinder Cr [facility] CPT-20389 Level 3 Est. Patient 09:03:58 CDT Harinder Hernandez [facility] CPT-11368 Level 3 Est. Patient 14:46:45 ANDROID SOFTWARE ENGINEER Harinder Cr [facility] CPT-80549 Level 3 Est. Patient 09:35:49 ANDROID SOFTWARE ENGINEER Harinder Hernandez [facility] CPT-86417 Level 3 Est. Patient 09:29:37 ANDROID SOFTWARE ENGINEER Harinder Cr [facility] CPT-12476 Level 3 Est. Patient 15:51:07 CDT Harinder Hernandez [facility] CPT-12567 Level 3 Est. Patient 18:13:13 CDT Harinder Cr [facility] CPT-79957 Level 3 Est. Patient 10:44:19 CDT Harinder Cr [facility] CPT-00200 Level 4 Est. Patient 10:07:19 ANDROID SOFTWARE ENGINEER Harinder Cr [facility] CPT-51465 Level 3 Est. Patient 15:59:32 ANDROID SOFTWARE ENGINEER Harinder Cr [facility] Procedures Code Procedure Name Date Entry Date Standard Description CPT-TCMM Transitional Care Mgmt-Moderate 11:33:57 CDT CPT-06369 No Charge Offi Visit 14:11:29 CDT CPT-75066 Magnesium - LAB USE ONLY 10:45:44 CDT CPT-02192 Lipid - LAB USE ONLY 10:45:44 CDT CPT-15820 CBC - LAB USE ONLY 10:45:44 CDT CPT-01406 Venipuncture Draw Fee 10:45:43 CDT CPT-19189 Venipuncture Draw Fee 18:21:27 CDT CPT-JTINJ Asp/Joint Injection 18:38:04 CDT CPT-04555 Immunization Each Additional Inj 17:38:04 CDT CPT-06382 Immunization Single Admin 17:38:04 CDT CPT-51280 Prevnar 13 17:38:04 CDT CPT-17582 Fluzone Quadrivalent preservative free (>=3yrs.) 17:38: 04 CDT CPT-05728 No Charge Offi Visit 11:14:03 CDT CPT-80244 Chest 2V Frontal and Lat 14:00:18 CDT CPT-OV Office Visit 16:10:28 CDT CPT-JTINJ Asp/Joint Injection 09:03:57 CDT CPT-Cryo Cryotherapy 09:35:49 ANDROID SOFTWARE ENGINEER CPT-JTINJ Asp/Joint Injection 09:34:45 ANDROID SOFTWARE ENGINEER CPT-J2930 Solu Medrol 125 mg (Methyl Prednisolone Sodium Succinate) 20:37:27 CDT CPT-39185 Abx/Therapy Injection 20:37:27 CDT CPT-01356 Port a cath flush 08:15:51 CDT CPT-25426 Port a cath flush 09:54:16 CDT CPT-70696 Port a cath flush 09:38:02 CDT CPT-31925 Port a cath flush 11:00:27 ANDROID SOFTWARE ENGINEER
[2017-12-28 23:59] LABS: BASOPHILS % (AUTO) 0 % (0-10); EOSINOPHILS # (AUTO) 0.2 10^3/uL (0.0-0.3); EOSINOPHILS % (AUTO) 2 % (0-10); HEMATOCRIT 34 % (35-52); HEMOGLOBIN 12.1 G/DL (11.5-16.0); LYMPHOCYTES # (AUTO) 3.8 X 10^3 (1.0-4.0); LYMPHOCYTES % (AUTO) 33 % (12-44); MEAN CORPUSCULAR HEMOGLOBIN 33 PG (25-34); MEAN CORPUSCULAR HGB CONC 35 G/DL (32-36); MEAN CORPUSCULAR VOLUME 93 FL (80-99); MEAN PLATELET VOLUME 9.7 FL (7.4-10.4); MONOCYTES # (AUTO) 0.8 X 10^3 (0.0-1.0); MONOCYTES % (AUTO) 7 % (0-12); NEUTROPHILS # (AUTO) 6.7 X 10^3 (1.8-7.8); NEUTROPHILS % (AUTO) 58 % (42-75); PLATELET COUNT 249 10^3/uL (130-400); RED BLOOD COUNT 3.69 10^6/uL (4.35-5.85); RED CELL DISTRIBUTION WIDTH 13.4 % (10.0-14.5); WHITE BLOOD COUNT 11.6 10^3/uL (4.3-11.0)
--- OUTSIDE RECORDS SUMMARY | 2017-12-28 23:59 | XMS REPORT | Clinical Summary ---
Author Author Admin, QIE Organization [facility] Address Unknown Phone Unavailable Allergies, Adverse Reactions, [...] 443.0 Active Harinder Hernandez DO Raynaud's syndrome Breast mass, right ICD-611.72 Inactive Harinder Hernandez [...] imperative to have this agent ALBUTEROL SULFATE 72356636651 Active Harinder Hernandez DO Active NIFEDIAC CC 30 MG [id number] 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 NIFEDIPINE 89629422695 Active Harinder Hernandez DO Active AMLODIPINE BESYLATE 5 MG TABS 1 tablet by mouth daily AMLODIPINE BESYLATE 60989009332 No Longer Active Harinder Hernandez DO Active TOPAMAX 25 MG ORAL TABS 1 tab po BID TOPIRAMATE 06313962369 Active Kortney Mccain Active FLUTICASONE PROPIONATE 50 MCG/ACT SUSP 2 sprays per nostril daily PRN Allergies FLUTICASONE PROPIONATE 32788301754 Active Kortney Mccain Active NIFEDIPINE ER 30 MG ORAL [id number] 1 daily NIFEDIPINE 08809722288 No Longer Active Harinder Hernandez DO Active POTASSIUM CHLORIDE 20 MEQ ORAL PACK Take 1 tablet by mouth daily POTASSIUM CHLORIDE 22177577757 Active Ciera Pimentel Active FLOVENT HFA 110 MCG/ACT AERO 2 puffs inhaled b.i.d. FLUTICASONE PROPIONATE HFA 06428873657 Active Harinder Hernandez DO Active POTASSIUM CHLORIDE CR 10 MEQ CPCR 1 capsule by mouth daily POTASSIUM CHLORIDE 54827040482 Active Harinder Hernandez DO Active EPIPEN 2-BRUNA 0.3 MG/0.3ML INJ SOAJ 1 INJ NEEDED EPINEPHRINE 75846538686 Active Harinder Hernandez DO Active PREDNISONE 20 MG TAB 1 tab twice daily for 3 day, then one daily for three days PREDNISONE 43126873076 No Longer Active Harinder Hernandez DO Active PREDNISONE 20 MG TAB 1 tablet twice daily for 2 days, then 1 tablet once daily for 2 days PREDNISONE 34506219681 No Longer Active Harinder Hernandez DO Active ASMANEX 120 METERED DOSES 220 MCG/INH INH AEPB 2 puffs orally twice daily MOMETASONE FUROATE 59754125983 Active Jeri Sosa RPT,RMA Active TOPIRAMATE 25 MG TABS 1 tab po BID TOPIRAMATE 74989610485 No Longer Active Nettie Newberry APRN Active AMLODIPINE BESYLATE 5 MG ORAL TABS Take 1 tab po daily AMLODIPINE BESYLATE 79770478985 No Longer Active Nettie Newberry APRN Active MECLIZINE HCL 25 MG TAB 1 tablet three times daily for 3 days, then 1/2 tab three times daily for 3 days. MECLIZINE HCL 23941835396 No Longer Active Nettie Newberry APRN Active AMITRIPTYLINE HCL 25 MG ORAL TABS 1 q hs prn AMITRIPTYLINE HCL 21618008920 No Longer Active Nettie Newberry APRN Active DILAUDID 2 MG ORAL TABS Take 1/2 tab po every 4 hours as needed for pain 2014 HYDROMORPHONE HCL 54243187470 No Longer Active Nettie Newberry APRN Active CLOPIDOGREL BISULFATE 75 MG ORAL TABS 1 tab by mouth once daily CLOPIDOGREL BISULFATE 65411977393 Active Harinder Hernandez DO Active ATORVASTATIN CALCIUM 10 MG ORAL TABS 1 at bedtime ATORVASTATIN CALCIUM 09594277877 Active Tawnya Pardo MA Active LOVASTATIN 40 MG ORAL TABS Take 1 tab po every hs LOVASTATIN 07893811490 No Longer Active Harinder Hernandez DO Active PREDNISONE 20 MG TAB 2 tabs daily for 4 days, 1 tab daily for 4 days, 1/2 tab daily for 4 days PREDNISONE 93735255550 No Longer Active Harinder Hernandez DO Active LEVAQUIN 500 MG ORAL TABS Take 1 tab po daily x 8 days LEVOFLOXACIN 75317597284 No Longer Active Harinder Hernandez DO Active VENTOLIN HFA 108 (90 BASE) MCG/ACT AERS 2 -4 puffs four times a day PRN 2013 ALBUTEROL SULFATE 06528087928 No Longer Active Jeri Sosa RPT,RMA Active ACEBUTOLOL HCL 200 MG CAPS 1 cap in the morning and 2 caps in the evening ACEBUTOLOL HCL 28263108755 No Longer Active Harinder Hernandez DO Active CEFDINIR 300 MG ORAL CAPS take 1 cap po bid x 10 days CEFDINIR 05227854783 No Longer Active Hairnder Hernandez DO Active LOVASTATIN 40 MG TABS 1 pill by mouth nightly for cholesterol LOVASTATIN 98247582231 No Longer Active Nettie Newberry APRN Active NITROSTAT 0.4 MG SUBL 1 tab under tongueas needed for chest pain ( may take 3 total, 5 min apart, then call 911) NITROGLYCERIN 86956229288 No Longer Active Nettie Newberry APRN Active POTASSIUM CHLORIDE CR 10 MEQ CPCR 1 capsule by mouth daily 02/14 POTASSIUM CHLORIDE 69446652416 No Longer Active Nettie Newberry APRN Active TESSALON PERLES 100 MG CAP 1 to 2 tablets by mouth 3 times daily as needed for cough BENZONATATE 55969706722 No Longer Active Nettie Newberry APRN Active THEOPHYLLINE ER 200 MG ORAL [id number] Take 1 tab every 12 hours THEOPHYLLINE 95100034032 Active Tawnya Pardo MA Active PREDNISONE 20 MG TAB 2 po qd x 5 days PREDNISONE 56066829333 No Longer Active Jae Morgan MD Active AZITHROMYCIN 250 MG TABS 2 po qd x 1 day, then 1 po qd x 4 days AZITHROMYCIN 97341543068 No Longer Active Jae Morgan MD Active PREDNISONE 20 MG TAB 1 tab twice daily for 3 day, then one daily for three days PREDNISONE 01830947245 No Longer Active Jae Morgan MD Active SINGULAIR 10 MG TABS 1 pill by mouth every evening for breathing. 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 NEURONTIN 300 MG CAP 1 cap by mouth three times daily for restless leg 06/22 GABAPENTIN 73179384881 No Longer Active Harinder Hernandez DO Active BENZONATATE 100 MG CAPS 1 cap po TID PRN BENZONATATE 30435299666 No Longer Active Harinder Hernandez DO Active MONTELUKAST SODIUM 10 MG TABS 1 tab po in the evening MONTELUKAST SODIUM 46395236869 No Longer Active Harinder Hernandez DO Active MUPIROCIN 2 % OINT apply to affected area BID x 14 days MUPIROCIN 07922153341 No Longer Active Harinder Hernandez DO Active TYLENOL EXTRA STRENGTH 500 MG TABS as needed ACETAMINOPHEN 79990674227 No Longer Active Harinder Hernandez DO Active PREDNISONE 10 MG TABS 1 tab po daily PREDNISONE 96488586872 No Longer Active Harinder Hernandez DO Active PREDNISONE 20 MG TAB 2 tabs daily for 4 days, 1 tab daily for 4 days, 1/2 tab daily for 4 days PREDNISONE 10236216849 No Longer Active Harinder Hernandez DO Active AZITHROMYCIN 250 MG TABS 2 po qd x 1 day, then 1 po qd x 4 days AZITHROMYCIN 75728248089 No Longer Active Harinder Hernandez DO Active PREDNISONE 20 MG TAB 3 tabs today, then 1 tab twice daily for 3 day, then one daily for three days PREDNISONE 52621317089 No Longer Active Harinder Hernandez DO Active NIFEDIAC CC 30 MG [id number] 1 tablet daily for raynaud's syndrome NIFEDIPINE 14730949174 No Longer Active Tawnya Pardo MA Active AMBIEN 10 MG TAB 1/2 tab by mouth at bedtime as needed for sleep ZOLPIDEM TARTRATE 46767960714 Active Kortney Mccain Active CLONAZEPAM 1 MG TABS 1 tablet at bedtime for insomnia and restless legs 09/14 CLONAZEPAM 18327987587 Active Harinder Hernandez DO Active CLONAZEPAM 0.5 MG TABS 1 tab po daily CLONAZEPAM 27207358413 No Longer Active Harinder Hernandez DO Active PREDNISONE 10 MG TAB 1 tablet daily for COPD PREDNISONE 39004568261 Active Ciera Pimetnel Active PROAIR HFA 108 (90 BASE) MCG/ACT AERS 2 puffs four times a day as needed 2012 ALBUTEROL SULFATE 57367881051 Active Harinder Hernandez DO Active FLOVENT HFA 110 MCG/ACT AERO 2 puffs inhaled b.i.d. FLUTICASONE PROPIONATE HFA 78028812962 Active Kortney Mccain Active ACIPHEX 20 MG TBEC 1 tab po daily RABEPRAZOLE SODIUM 86904998367 Active Kaylah Newberry Active CLONAZEPAM 0.5 MG TABS 1 tab po daily CLONAZEPAM 0.5 MG TABS 235109 CLONAZEPAM Inactive PREDNISONE 20 MG TAB 3 tabs today, then 1 tab twice daily for 3 day, then one daily for three days PREDNISONE 20 MG TAB 608302 PREDNISONE Inactive PREDNISONE 20 MG TAB 2 tabs daily for 4 days, 1 tab daily for 4 days, 1/2 tab daily for 4 days PREDNISONE 20 MG TAB 818046 PREDNISONE Inactive PREDNISONE 10 MG TABS 1 tab po daily PREDNISONE 10 MG TABS 219819 PREDNISONE Inactive TYLENOL EXTRA STRENGTH 500 MG TABS as needed TYLENOL EXTRA STRENGTH 500 MG TABS 490624 ACETAMINOPHEN Inactive MUPIROCIN 2 % OINT apply to affected area BID x 14 days MUPIROCIN 2 % OINT 099214 MUPIROCIN Inactive MONTELUKAST SODIUM 10 MG TABS 1 tab po in the evening MONTELUKAST SODIUM 10 MG TABS 20010818 MONTELUKAST SODIUM Inactive BENZONATATE 100 MG CAPS 1 cap po TID PRN BENZONATATE 100 MG CAPS 104319 BENZONATATE Inactive NEURONTIN 300 MG CAP 1 cap by mouth three times daily for restless leg 06/22 NEURONTIN 300 MG CAP 422512 GABAPENTIN Inactive LEVAQUIN 500 MG TAB 1 tablet by mouth daily LEVAQUIN 500 MG TAB 419238 LEVOFLOXACIN Inactive PREDNISONE 20 MG TAB 1 TID x 2 days, then 1 BID x 3 days, then 1 Daily x 3 days, then stop PREDNISONE 20 MG TAB 404658 PREDNISONE Inactive POTASSIUM CHLORIDE ER 10 MEQ CR-TABS take 1 tab po daily POTASSIUM CHLORIDE ER 10 MEQ CR-TABS POTASSIUM CHLORIDE Inactive PREDNISONE 20 MG TAB 1 tab twice daily for 3 day, then one daily for three days PREDNISONE 20 MG TAB 379294 PREDNISONE Inactive TESSALON PERLES 100 MG CAP 1 to 2 tablets by mouth 3 times daily as needed for cough TESSALON PERLES 100 MG CAP 692005 BENZONATATE Inactive POTASSIUM CHLORIDE CR 10 MEQ CPCR 1 capsule by mouth daily 02/14 POTASSIUM CHLORIDE CR 10 MEQ CPCR POTASSIUM CHLORIDE Inactive NITROSTAT 0.4 MG SUBL 1 tab under tongueas needed for chest pain ( may take 3 total, 5 min apart, then call 911) NITROSTAT 0.4 MG SUBL 604566 NITROGLYCERIN Inactive LOVASTATIN 40 MG TABS 1 pill by mouth nightly for cholesterol LOVASTATIN 40 MG TABS 590315 LOVASTATIN Inactive CEFDINIR 300 MG ORAL CAPS take 1 cap po bid x 10 days CEFDINIR 300 MG ORAL CAPS 864769 CEFDINIR Inactive ACEBUTOLOL HCL 200 MG CAPS 1 cap in the morning and 2 caps in the evening ACEBUTOLOL HCL 200 MG CAPS 351853 ACEBUTOLOL HCL Inactive VENTOLIN HFA 108 (90 BASE) MCG/ACT AERS 2 -4 puffs four times a day PRN 2013 VENTOLIN HFA 108 (90 BASE) MCG/ACT AERS ALBUTEROL SULFATE Inactive LEVAQUIN 500 MG ORAL TABS Take 1 tab po daily x 8 days LEVAQUIN 500 MG ORAL TABS 614166 LEVOFLOXACIN Inactive PREDNISONE 20 MG TAB 2 tabs daily for 4 days, 1 tab daily for 4 days, 1/2 tab daily for 4 days PREDNISONE 20 MG TAB 048559 PREDNISONE Inactive LOVASTATIN 40 MG ORAL TABS Take 1 tab po every hs LOVASTATIN 40 MG ORAL TABS 263145 LOVASTATIN Inactive DILAUDID 2 MG ORAL TABS Take 1/2 tab po every 4 hours as needed for pain 2014 DILAUDID 2 MG ORAL TABS 206759 HYDROMORPHONE HCL Inactive AMITRIPTYLINE HCL 25 MG ORAL TABS 1 q hs prn AMITRIPTYLINE HCL 25 MG ORAL TABS 056330 AMITRIPTYLINE HCL Inactive MECLIZINE HCL 25 MG TAB 1 tablet three times daily for 3 days, then 1/2 tab three times daily for 3 days. MECLIZINE HCL 25 MG TAB 376403 MECLIZINE HCL Inactive AMLODIPINE BESYLATE 5 MG ORAL TABS Take 1 tab po daily AMLODIPINE BESYLATE 5 MG ORAL TABS 548243 AMLODIPINE BESYLATE Inactive TOPIRAMATE 25 MG TABS 1 tab po BID TOPIRAMATE 25 MG TABS 002045 TOPIRAMATE Inactive PREDNISONE 20 MG TAB 1 tablet twice daily for 2 days, then 1 tablet once daily for 2 days PREDNISONE 20 MG TAB 946275 PREDNISONE Inactive PREDNISONE 20 MG TAB 1 tab twice daily for 3 day, then one daily for three days PREDNISONE 20 MG TAB 944523 PREDNISONE Inactive NIFEDIPINE ER 30 MG ORAL [id number] 1 daily NIFEDIPINE ER 30 MG ORAL [id number] NIFEDIPINE Inactive AMLODIPINE BESYLATE 5 MG TABS 1 tablet by mouth daily AMLODIPINE BESYLATE 5 MG TABS 600491 AMLODIPINE BESYLATE Inactive AZITHROMYCIN 250 MG TABS 2 po qd x 1 day, then 1 po qd x 4 days AZITHROMYCIN 250 MG TABS 5157306 AZITHROMYCIN Inactive AZITHROMYCIN 250 MG TABS 2 po qd x 1 day, then 1 po qd x 4 days AZITHROMYCIN 250 MG TABS 8078766 AZITHROMYCIN Inactive PREDNISONE 20 MG TAB 2 po qd x 5 days PREDNISONE 20 MG TAB 504267 PREDNISONE Inactive Vital Signs Date Name Value [...] E&M - [id number] 124 [lb_av] Weight Measured Diagnostic Results Date Name Value Unit Range Description Lab Report: Basic Metabolic Panel - Chemistry sodium, serum 137 mmol/L 496-272 2355/01/03 potassium, serum 3.4 mmol/L 3.5-5.2 chloride, serum [...] Magnesium - Chemistry cholesterol, serum 180 mg/dL 278-561 2883/08/08 triglyceride, serum, fasting 92 mg/dL 30-200 HDL cholesterol, serum 66 mg/dL 32-96 LDL cholesterol, serum 96 mg/dL 0-130 sodium, serum 142 mmol/L 727-133 0929/08/08 carbon dioxide, venous blood 27.4 mmol/L 21.0-32.0 [...] 10.0-20.0 Encounters Code Encounter Date Provider Facility CPT-24722 Level 4 Est. Patient 10:19:23 CDT Harinder Cr [facility] CPT-52998 Level 3 Est. Patient 09:58:58 CDT Harinder Cr [facility] CPT-66399 Level 3 Est. Patient 12:37:21 CDT Harinder Cr [facility] CPT-70549 Level 3 Est. Patient 18:37:17 CDT [facility] CPT-52330 Level 4 Est. Patient 11:15:54 CDT Nettie Rohith [facility] CPT-96041 Level 3 Est. Patient 16:42:24 CDT Harinder Cr [facility] [address] CPT-16421 Level 3 Est. Patient 15:03:36 CDT Harinder Cr David [facility] [address] CPT-62079 Level 3 Est. Patient 15:03:20 CDT Harinder Cr David [facility] [address] CPT-05921 Level 3 Est. Patient 12:14:34 CDT Harinder Cr David [facility] CPT-14073 Level 3 Est. Patient 13:47:15 CDT Harinder Cr David [facility] CPT-39816 Level 3 Est. Patient 14:08:24 CDT Harinder Cr [facility] CPT-90714 Level 3 Est. Patient 10:07:15 CDT Harinder Cr [facility] CPT-43484 Level 3 Est. Patient 10:06:59 CDT Harinder Hernandez [facility] CPT-48330 Level 3 Est. Patient 15:53:29 CDT Jae Morgan MD [facility] CPT-53243 Level 3 Est. Patient 17:19:04 CDT Harinder Hernandez [facility] CPT-01701 Level 3 Est. Patient 11:13:01 CDT Harinder Hernandez [facility] CPT-47365 Level 3 Est. Patient 09:03:58 CDT Harinder Cr David [facility] [address] CPT-19654 Level 3 Est. Patient 14:46:45 LOCKSTITCH LINING SETTER Harinder Hernandez [facility] CPT-48510 Level 3 Est. Patient 09:35:49 LOCKSTITCH LINING SETTER Harinder Hernandez [facility] [address] CPT-63590 Level 3 Est. Patient 09:29:37 LOCKSTITCH LINING SETTER Harinder Hernandez [facility] [address] CPT-83495 Level 3 Est. Patient 15:51:07 CDT Harinder Hernandez [facility] CPT-21587 Level 3 Est. Patient 18:13:13 CDT Harinder Hernandez [facility] CPT-52981 Level 3 Est. Patient 10:44:19 CDT Harinder Hernandez [facility] CPT-10215 Level 4 Est. Patient 10:07:19 LOCKSTITCH LINING SETTER Harinder Cr [facility] CPT-63431 Level 3 Est. Patient 15:59:32 LOCKSTITCH LINING SETTER Harinder Cr [facility] Procedures Code Procedure Name Date Entry Date Standard Description CPT-75301 Hip, complete, 2-3 views - XRAY USE ONLY 10:28:40 CDT CPT-56657 BMP - LAB USE ONLY 16:45:09 LOCKSTITCH LINING SETTER CPT-44248 Port a cath flush 12:00:13 LOCKSTITCH LINING SETTER CPT-TCMM Transitional Care Mgmt-Moderate 11:20:16 LOCKSTITCH LINING SETTER CPT-62235 First Vx - Ix admin for Medicare patients 17:35:15 CDT CPT-06690 Fluzone Preservative Free Intramuscular Suspension 17:35 :15 CDT CPT-17828 Microalbumin - LAB USE ONLY 11:52:05 CDT CPT-TCMM Transitional Care Mgmt-Moderate 11:33:57 CDT CPT-92919 No Charge Offi Visit 14:11:29 CDT CPT-60252 Magnesium - LAB USE ONLY 10:45:44 CDT CPT-88965 Lipid - LAB USE ONLY 10:45:44 CDT CPT-11870 CBC - LAB USE ONLY 10:45:44 CDT CPT-56700 Venipuncture Draw Fee 10:45:43 CDT CPT-95762 Venipuncture Draw Fee 18:21:27 CDT CPT-JTINJ Asp/Joint Injection 18:38:04 CDT CPT-30926 Immunization Each Additional Inj 17:38:04 CDT CPT-36261 Immunization Single Admin 17:38:04 CDT CPT-24133 Prevnar 13 17:38:04 CDT CPT-55746 Fluzone Quadrivalent preservative free (>=3yrs.) 17:38: 04 CDT CPT-87650 No Charge Offi Visit 11:14:03 CDT CPT-01952 Chest 2V Frontal and Lat 14:00:18 CDT CPT-OV Office Visit 16:10:28 CDT CPT-JTINJ Asp/Joint Injection 09:03:57 CDT CPT-Cryo Cryotherapy 09:35:49 LOCKSTITCH LINING SETTER CPT-JTINJ Asp/Joint Injection 09:34:45 LOCKSTITCH LINING SETTER CPT-J2930 Solu Medrol 125 mg (Methyl Prednisolone Sodium Succinate) 20:37:27 CDT CPT-22792 Abx/Therapy Injection 20:37:27 CDT CPT-41314 Port a cath flush 08:15:51 CDT CPT-23441 Port a cath flush 09:54:16 CDT CPT-62861 Port a cath flush 09:38:02 CDT CPT-75024 Port a cath flush 11:00:27 LOCKSTITCH LINING SETTER
[2017-12-29] VITALS (7 sets, daily range): BP systolic 90–120; BP diastolic 50–67
[2017-12-29] MEDS ORDERED: RT-IPRATROPIUM (ATROVENT) 0.5MG/2.5ML AMP IH ONE
[2017-12-29] MEDS ORDERED: RT-epiNEPHrine (RACEMIC) 2.25% 0.5 ML VIAL INH ONE
[2017-12-29] MEDS ORDERED: methylPREDNISolone 125 MG (Solu-MEDROL) VIAL IVP ONE
--- OUTSIDE RECORDS SUMMARY | 2017-12-29 | XMS REPORT | Clinical Summary ---
Author Author Admin, QIE Organization [facility] [employer] Address Unknown Phone Unavailable Allergies, Adverse Reactions, [...] W David DO LATEX Critical Active Harinder Hernandez DO [...] David DO Insomnia ICD-780.52 Inactive Harinder Shaye David DO Sacroiliitis, right ICD-720.2 Inactive Harinder Shaye David DO Biceps tendinitis, left ICD-726.12 Inactive Harinder Shaye David DO Nausea and vomiting ICD-787.01 Inactive Jae Morgan MD Diarrhea ICD-787.91 Inactive Jae Morgan MD Benign positional vertigo ICD-386.11 Inactive Harinder Hernandez DO Colon cancer screening ICD-V76.51 Inactive Harinder Hernandez DO Screening for malignant neoplasm, colon ICD-V76.51 Inactive Harinder Hernandez DO Pneumonia ICD-486 Inactive Harinder Hernandez DO Bacteremia ICD-790.7 Inactive Harinder Hernandez 10/02 Clostridium difficile colitis ICD-008.45 Inactive Harinder [...] Generic Name NDC Status Provider Patient Instruction ASMANEX 120 METERED DOSES 220 MCG/INH INH AEPB 2 puffs orally twice daily MOMETASONE FUROATE 11325445514 Active Jeri Sosa RPT,RMA Active NIFEDIPINE ER 30 MG ORAL [id number] 1 daily NIFEDIPINE 82838689471 Active Tawnya Pardo MA Active TOPIRAMATE 25 MG TABS 1 tab po BID TOPIRAMATE 21411727910 No Longer Active Nettie Newberry APRN Active AMLODIPINE BESYLATE 5 MG ORAL TABS Take 1 tab po daily AMLODIPINE BESYLATE 10569835643 No Longer Active Nettie Newberry APRN Active MECLIZINE HCL 25 MG TAB 1 tablet three times daily for 3 days, then 1/2 tab three times daily for 3 days. MECLIZINE HCL 07394659526 No Longer Active Nettieog Newberry APRN Active AMITRIPTYLINE HCL 25 MG ORAL TABS 1 q hs prn AMITRIPTYLINE HCL 13398039208 No Longer Active Nettieog Newberry APRN Active DILAUDID 2 MG ORAL TABS Take 1/2 tab po every 4 hours as needed for pain 2014 HYDROMORPHONE HCL 50318020014 No Longer Active Nettie Newberry APRN Active CLOPIDOGREL BISULFATE 75 MG ORAL TABS 1 tab by mouth once daily CLOPIDOGREL BISULFATE 31212483383 Active Tawnya Pardo MA Active ATORVASTATIN CALCIUM 10 MG ORAL TABS 1 at bedtime ATORVASTATIN CALCIUM 70437983054 Active Tawnya Pardo MA Active LOVASTATIN 40 MG ORAL TABS Take 1 tab po every hs LOVASTATIN 71740571135 No Longer Active Harinder Hernandez DO Active PREDNISONE 20 MG TAB 2 tabs daily for 4 days, 1 tab daily for 4 days, 1/2 tab daily for 4 days PREDNISONE 59208209587 No Longer Active Harinder Hernandez DO Active LEVAQUIN 500 MG ORAL TABS Take 1 tab po daily x 8 days LEVOFLOXACIN 45771266685 No Longer Active Harinder Hernandez DO Active VENTOLIN HFA 108 (90 BASE) MCG/ACT AERS 2 -4 puffs four times a day PRN 2013 ALBUTEROL SULFATE 33809444319 No Longer Active Jeri Sosa RPT,RMA Active ACEBUTOLOL HCL 200 MG CAPS 1 cap in the morning and 2 caps in the evening ACEBUTOLOL HCL 43242401831 No Longer Active Harinder Hernandez DO Active CEFDINIR 300 MG ORAL CAPS take 1 cap po bid x 10 days CEFDINIR 07645648980 No Longer Active Harinder Hernandez DO Active LOVASTATIN 40 MG TABS 1 pill by mouth nightly for cholesterol LOVASTATIN 19063867399 No Longer Active Nettie Newberry APRN Active NITROSTAT 0.4 MG SUBL 1 tab under tongueas needed for chest pain ( may take 3 total, 5 min apart, then call 911) NITROGLYCERIN 69902789162 No Longer Active Nettie Newberry APRN Active POTASSIUM CHLORIDE CR 10 MEQ CPCR 1 capsule by mouth daily 02/14 POTASSIUM CHLORIDE 13980383573 No Longer Active Nettie Newberry APRN Active TESSALON PERLES 100 MG CAP 1 to 2 tablets by mouth 3 times daily as needed for cough BENZONATATE 41744776854 No Longer Active Nettie Newberry APRN Active THEOPHYLLINE ER 200 MG ORAL NW99G-IFM Take 1 tab every 12 hours THEOPHYLLINE 97136038356 Active Tawnya Pardo MA Active PREDNISONE 20 MG TAB 2 po qd x 5 days PREDNISONE 03432354939 No Longer Active Jae Morgan MD Active AZITHROMYCIN 250 MG TABS 2 po qd x 1 day, then 1 po qd x 4 days AZITHROMYCIN 84846561370 No Longer Active Jae Morgan MD Active PREDNISONE 20 MG TAB 1 tab twice daily for 3 day, then one daily for three days PREDNISONE 14045208721 No Longer Active Jae Morgan MD Active SINGULAIR 10 MG TABS 1 pill by mouth every evening for breathing. MONTELUKAST SODIUM 84064902596 Active Tawnya Pardo MA Active TYLENOL 325 MG TAB 3 by mouth q4h as needed ACETAMINOPHEN 57885624778 Active Harinder Hernandez DO Active POTASSIUM CHLORIDE ER 10 MEQ CR-TABS take 1 tab po daily POTASSIUM CHLORIDE 55141047570 No Longer Active Harinder Hernandez DO Active PREDNISONE 20 MG TAB 1 TID x 2 days, then 1 BID x 3 days, then 1 Daily x 3 days, then stop PREDNISONE 78440887684 No Longer Active John Montemayor APRN Active LEVAQUIN 500 MG TAB 1 tablet by mouth daily LEVOFLOXACIN 26368952744 No Longer Active John Montemayor APRN Active NEURONTIN 300 MG CAP 1 cap by mouth three times daily for restless leg 06/22 GABAPENTIN 81083139568 No Longer Active Harinder Hernandez DO Active BENZONATATE 100 MG CAPS 1 cap po TID PRN BENZONATATE 01928897067 No Longer Active Harinder Hernandez DO Active MONTELUKAST SODIUM 10 MG TABS 1 tab po in the evening MONTELUKAST SODIUM 66839372610 No Longer Active Harinder Hernandez DO Active MUPIROCIN 2 % OINT apply to affected area BID x 14 days MUPIROCIN 54088760007 No Longer Active Harinder Hernandez DO Active TYLENOL EXTRA STRENGTH 500 MG TABS as needed ACETAMINOPHEN 10593748883 No Longer Active Harinder Hernandez DO Active PREDNISONE 10 MG TABS 1 tab po daily PREDNISONE 79068089320 No Longer Active Harinder Hernandez DO Active PREDNISONE 20 MG TAB 2 tabs daily for 4 days, 1 tab daily for 4 days, 1/2 tab daily for 4 days PREDNISONE 85234122043 No Longer Active Harinder Hernandez DO Active AZITHROMYCIN 250 MG TABS 2 po qd x 1 day, then 1 po qd x 4 days AZITHROMYCIN 66988758411 No Longer Active Harinder Hernandez DO Active PREDNISONE 20 MG TAB 3 tabs today, then 1 tab twice daily for 3 day, then one daily for three days PREDNISONE 19122205321 No Longer Active Harinder Hernandez DO Active NIFEDIAC CC 30 MG AS49G-IMC 1 tablet daily for raynaud's syndrome NIFEDIPINE 26281533998 No Longer Active Tawnya Pardo MA Active AMBIEN 10 MG TAB 1/2 tab by mouth at bedtime as needed for sleep ZOLPIDEM TARTRATE 59434368495 Active Harinder Hernandez DO Active CLONAZEPAM 1 MG TABS 1 tablet at bedtime for insomnia and restless legs 09/14 CLONAZEPAM 44596277974 Active Harinder Hernandez DO Active CLONAZEPAM 0.5 MG TABS 1 tab po daily CLONAZEPAM 32413377830 No Longer Active Harinder Hernandez DO Active PREDNISONE 10 MG TAB 1 tablet daily for COPD PREDNISONE 39334785873 Active Tawnya Pardo MA Active PROAIR HFA 108 (90 BASE) MCG/ACT AERS 2 puffs four times a day as needed 2012 ALBUTEROL SULFATE 49420123312 Active Tawnya Pardo MA Active FLOVENT HFA 110 MCG/ACT AERO 2 puffs inhaled b.i.d. FLUTICASONE PROPIONATE HFA 62601445498 Active Tawnya Pardo MA Active EPIPEN 0.3 MG/0.3ML URIEL DIRECTED EPINEPHRINE Active Demetrius JOHNSON Active ACIPHEX 20 MG TBEC 1 tab po daily RABEPRAZOLE SODIUM 13643389065 Active Tawnya Pardo MA Active CLONAZEPAM 0.5 MG TABS 1 tab po daily CLONAZEPAM 0.5 MG TABS 020092 CLONAZEPAM Inactive PREDNISONE 20 MG TAB 3 tabs today, then 1 tab twice daily for 3 day, then one daily for three days PREDNISONE 20 MG TAB 543442 PREDNISONE Inactive PREDNISONE 20 MG TAB 2 tabs daily for 4 days, 1 tab daily for 4 days, 1/2 tab daily for 4 days PREDNISONE 20 MG TAB 966187 PREDNISONE Inactive PREDNISONE 10 MG TABS 1 tab po daily PREDNISONE 10 MG TABS 740275 PREDNISONE Inactive TYLENOL EXTRA STRENGTH 500 MG TABS as needed TYLENOL EXTRA STRENGTH 500 MG TABS 303007 ACETAMINOPHEN Inactive MUPIROCIN 2 % OINT apply to affected area BID x 14 days MUPIROCIN 2 % OINT 047565 MUPIROCIN Inactive MONTELUKAST SODIUM 10 MG TABS 1 tab po in the evening MONTELUKAST SODIUM 10 MG TABS 20010818 MONTELUKAST SODIUM Inactive BENZONATATE 100 MG CAPS 1 cap po TID PRN BENZONATATE 100 MG CAPS 19730321 BENZONATATE Inactive NEURONTIN 300 MG CAP 1 cap by mouth three times daily for restless leg 06/22 NEURONTIN 300 MG CAP 772655 GABAPENTIN Inactive LEVAQUIN 500 MG TAB 1 tablet by mouth daily LEVAQUIN 500 MG TAB 487946 LEVOFLOXACIN Inactive PREDNISONE 20 MG TAB 1 TID x 2 days, then 1 BID x 3 days, then 1 Daily x 3 days, then stop PREDNISONE 20 MG TAB 989417 PREDNISONE Inactive POTASSIUM CHLORIDE ER 10 MEQ CR-TABS take 1 tab po daily POTASSIUM CHLORIDE ER 10 MEQ CR-TABS POTASSIUM CHLORIDE Inactive PREDNISONE 20 MG TAB 1 tab twice daily for 3 day, then one daily for three days PREDNISONE 20 MG TAB 474804 PREDNISONE Inactive TESSALON PERLES 100 MG CAP [...] nightly for cholesterol LOVASTATIN 40 MG TABS 690022 LOVASTATIN Inactive CEFDINIR 300 MG ORAL CAPS take 1 cap po bid x 10 days CEFDINIR 300 MG ORAL CAPS 925522 CEFDINIR Inactive ACEBUTOLOL HCL 200 MG CAPS 1 cap in the morning and 2 caps in the evening ACEBUTOLOL HCL 200 MG CAPS 227673 ACEBUTOLOL HCL Inactive VENTOLIN HFA 108 (90 BASE) MCG/ACT AERS 2 -4 puffs four times a day PRN 2013 VENTOLIN HFA 108 (90 BASE) MCG/ACT AERS ALBUTEROL SULFATE Inactive LEVAQUIN 500 MG ORAL TABS Take 1 tab po daily x 8 days LEVAQUIN 500 MG ORAL TABS 849868 LEVOFLOXACIN Inactive PREDNISONE 20 MG TAB 2 tabs daily for 4 days, 1 tab daily for 4 days, 1/2 tab daily for 4 days PREDNISONE 20 MG TAB 426824 PREDNISONE Inactive LOVASTATIN 40 MG ORAL TABS Take 1 tab po every hs LOVASTATIN 40 MG ORAL TABS 842837 LOVASTATIN Inactive DILAUDID 2 MG ORAL TABS Take 1/2 tab po every 4 hours as needed for pain 2014 DILAUDID 2 MG ORAL TABS 045152 HYDROMORPHONE HCL Inactive AMITRIPTYLINE HCL 25 MG ORAL TABS 1 q hs prn AMITRIPTYLINE HCL 25 MG ORAL TABS 930713 AMITRIPTYLINE HCL Inactive MECLIZINE HCL 25 MG TAB 1 tablet three times daily for 3 days, then 1/2 tab three times daily for 3 days. MECLIZINE HCL 25 MG TAB 594712 MECLIZINE HCL Inactive AMLODIPINE BESYLATE 5 MG ORAL TABS Take 1 tab po daily AMLODIPINE BESYLATE 5 MG ORAL TABS 740232 AMLODIPINE BESYLATE Inactive TOPIRAMATE 25 MG TABS 1 tab po BID TOPIRAMATE 25 MG TABS 627817 TOPIRAMATE Inactive AZITHROMYCIN 250 MG TABS 2 po qd x 1 day, then 1 po qd x 4 days AZITHROMYCIN 250 MG TABS 0413467 AZITHROMYCIN Inactive AZITHROMYCIN 250 MG TABS 2 po qd x 1 day, then 1 po qd x 4 days AZITHROMYCIN 250 MG TABS 3578740 AZITHROMYCIN Inactive PREDNISONE 20 MG TAB 2 po qd x 5 days PREDNISONE 20 MG TAB 456963 PREDNISONE Inactive Vital Signs Date Name Value [...] Panel - Chemistry sodium, serum 138 mmol/L 506-913 2387/09/24 potassium, serum 3.5 mmol/L 3.5-5.2 chloride, serum [...] 142-424 Encounters Code Encounter Date Provider Facility CPT-42750 Level 4 Est. Patient 11:15:54 CDT Nettie Newberry [facility] CPT-18995 Level 3 Est. Patient 16:42:24 CDT Harinder Cr [facility] CPT-39726 Level 3 Est. Patient 15:03:36 CDT Harinder Cr [facility] CPT-75330 Level 3 Est. Patient 15:03:20 CDT Harinder Cr [facility] CPT-86878 Level 3 Est. Patient 12:14:34 CDT Harinder Hernandez [facility] CPT-92142 Level 3 Est. Patient 13:47:15 CDT Harinder Cr [facility] CPT-22129 Level 3 Est. Patient 14:08:24 CDT Harinder Hernandez [facility] CPT-43049 Level 3 Est. Patient 10:07:15 CDT Harinder Cr [facility] CPT-44373 Level 3 Est. Patient 10:06:59 CDT Harinder Cr [facility] CPT-66573 Level 3 Est. Patient 15:53:29 CDT Jae Morgan MD [facility] CPT-90924 Level 3 Est. Patient 17:19:04 CDT Harinder Cr David [facility] CPT-10071 Level 3 Est. Patient 11:13:01 CDT Harinder Hernandez [facility] CPT-73013 Level 3 Est. Patient 09:03:58 CDT Harinder Hernandez [facility] [address] CPT-00596 Level 3 Est. Patient 14:46:45 VETERANS' COORDINATOR Harinder Hernandez [facility] CPT-00963 Level 3 Est. Patient 09:35:49 VETERANS' COORDINATOR Harinder Shaye Hernandez [facility] [address] CPT-72847 Level 3 Est. Patient 09:29:37 VETERANS' COORDINATOR Harinder Shaye David [facility] [address] CPT-77165 Level 3 Est. Patient 15:51:07 CDT Harinder Hernandez [facility] CPT-51197 Level 3 Est. Patient 18:13:13 CDT Harinder Cr [facility] CPT-04973 Level 3 Est. Patient 10:44:19 CDT Harinder Hernandez [facility] CPT-16673 Level 4 Est. Patient 10:07:19 VETERANS' COORDINATOR Harinder Cr [facility] CPT-10190 Level 3 Est. Patient 15:59:32 VETERANS' COORDINATOR Harinder Cr [facility] Procedures Code Procedure Name Date Entry Date Standard Description CPT-29060 Immunization Each Additional Inj 17:38:04 CDT CPT-50299 Immunization Single Admin 17:38:04 CDT CPT-09638 Prevnar 13 17:38:04 CDT CPT-76034 Fluzone Quadrivalent preservative free (>=3yrs.) 17:38: 04 CDT CPT-73189 No Charge Offi Visit 11:14:03 CDT CPT-38602 Chest 2V Frontal and Lat 14:00:18 CDT CPT-OV Office Visit 16:10:28 CDT CPT-JTINJ Asp/Joint Injection 09:03:57 CDT CPT-Cryo Cryotherapy 09:35:49 VETERANS' COORDINATOR CPT-JTINJ Asp/Joint Injection 09:34:45 VETERANS' COORDINATOR CPT-J2930 Solu Medrol 125 mg (Methyl Prednisolone Sodium Succinate) 20:37:27 CDT CPT-35715 Abx/Therapy Injection 20:37:27 CDT CPT-93671 Port a cath flush 08:15:51 CDT CPT-59218 Port a cath flush 09:54:16 CDT CPT-58965 Port a cath flush 09:38:02 CDT CPT-81816 Port a cath flush 11:00:27 VETERANS' COORDINATOR
--- OUTSIDE RECORDS SUMMARY | 2017-12-29 00:01 | XMS REPORT ---
Author Author [facility] Medical Staff Organization [facility] Address [address], [place] [address] Phone [phone] Care Team Providers Care Patent Lawyer Name Role Phone REBEKAH PINO SAIGE PP [phone] REBEKAH PINO SAIGE WELSH [phone] Summary purpose TRANSITION OF CARE AUTO GENERATION Chief Complaint and Reason for Visit Admit Diagnosis 1 PAC PLACEMENT Problem list No authorized problems tracked for continuity of care are available for this visit. Encounters No authorized problems tracked for encounter diagnoses are available for this visit. Medications No medications recorded for this patient visit Allergies, adverse reactions, alerts Allergen Category Ingredient Status Reaction Severity Onset Morphine Drug Allergy Morphine Confirmed or Verified Demerol Drug Allergy Demerol Confirmed or Verified Demerol Drug Allergy Meperidine Confirmed or Verified Tramadol Drug Allergy Tramadol Confirmed or Verified Latex Drug Allergy Latex Confirmed or Verified Latex Environmental Allergy LATEX Confirmed or Verified Diphenhydramine Drug Allergy Diphenhydramine Confirmed or Verified Diazepam Drug Allergy Diazepam Confirmed or Verified Sulfa (Sulfonamide Antibiotics) Drug Allergy Sulfa (Sulfonamide Antibiotics) Confirmed or Verified Pregabalin Drug Allergy Pregabalin Confirmed or Verified Penicillins Drug Allergy Penicillins Confirmed or Verified Promethazine Drug Allergy Promethazine Confirmed or Verified Aspirin Drug Allergy Aspirin Confirmed or Verified Baclofen Drug Allergy Baclofen Confirmed or Verified Codeine Drug Allergy Codeine Confirmed or Verified Hydrocortisone Drug Allergy Hydrocortisone Confirmed or Verified Hydrocodone Drug Allergy Hydrocodone Confirmed or Verified Ibuprofen Drug Allergy Ibuprofen Confirmed or Verified Ropinirole Drug Allergy Ropinirole Confirmed or Verified Doxycycline Drug Allergy Doxycycline Confirmed or Verified Requip Drug Allergy Requip Confirmed or Verified Requip Drug Allergy Ropinirole Confirmed or Verified Avelox Drug Allergy Avelox Confirmed or Verified Avelox Drug Allergy Moxifloxacin Confirmed or Verified Zofran Drug Allergy Zofran Confirmed but Inactive Zofran Drug Allergy ondansetron Confirmed or Verified amitriptyline Drug Allergy amitriptyline Confirmed or Verified azithromycin Drug Allergy azithromycin Confirmed or Verified peanut Drug Allergy peanut Confirmed or Verified black walnut Drug Allergy black walnut Confirmed or Verified vancomycin Drug Allergy vancomycin Confirmed or Verified Shortness of Breath Severe Adult Xanax Drug Allergy Xanax Confirmed or Verified Swelling Severe Adult Xanax Drug Allergy alprazolam Confirmed or Verified Swelling Severe Adult Aleve Drug Allergy Aleve Confirmed or Verified confused Severe Adult Aleve Drug Allergy naproxen Confirmed or Verified confused Severe Adult Immunizations No immunizations recorded for this patient visit Relevant diagnostic tests and/or laboratory data RESULTS Radiology Results 13-25-211258:05:00 Chest XRay - Port - 1 View PACs Image DATE OF EXAM: Nov 07 2015 RAD 0292-CHEST 1 VIEW PORT : RADIOLOGY REPORT DATE OF SERVICE: 11/07/15 HISTORY: Patient has Port-A-Cath placement. PORTABLE ONE VIEW CHEST 1300 HOURS Port-A-Cath is in place on the left with tip in superior vena cava. The heart and mediastinum are normal. The lungs are clear. No effusion is seen. IMPRESSION: Negative study of the chest with no complication of Port-A-Cath placement. DO KARRI Ham/zeyad 11/07/2015 14:06: / 11/07/2015 15:44:20 cc:Dr. Amrik Kerr This document has been electronically Signed by: On: DATE OF EXAM: Nov 07 2015 RAD 0292-CHEST 1 VIEW PORT : RADIOLOGY REPORT DATE OF SERVICE: 11/07/15 HISTORY: Patient has Port-A-Cath placement. PORTABLE ONE VIEW CHEST 1300 HOURS Port-A-Cath is in place on the left with tip in superior vena cava. The heart and mediastinum are normal. The lungs are clear. No effusion is seen. IMPRESSION: Negative study of the chest with no complication of Port-A-Cath placement. DO KARRI Ham/zeyad 11/07/2015 14:06:00 / 11/07/2015 15:44:20 cc:Dr. Amrik Kerr This document has been electronically Signed by: MIRYAM ALVARADO DO On: Nov 07 20154:05P PAC PLACEMENT Result Amended on 2015-11-07 at 16:05:33. Previous status was HI. PAC PLACEMENT History of procedures Procedure Code Code Type Description Date Performed Performing Physician [id number] ICD10 Insertion of VAD into Chest Subcu/Fascia, Perc Approach AMRIK CRAWFORD 98666 CPT-4 INS CVP CENT SUB Q PORT >5 11-07-2015 AMRIK CRAWFORD 19375 CPT-4 CHEST X-RAY 11-07-2015 AMRIK CRAWFORD 98826 CPT-4 FLOURO GUIDANCE FOR CVP 11-07-2015 AMRIK CRAWFORD C1751 CPT-4 CATH, INF, PER/CENT/MIDLINE 11-07-2015 AMRIK CRAWFORD C1892 CPT-4 INTRO/SHEATH,FIXED,PEEL-AWAY 11-07-2015 AMRIK CRAWFORD C9290 CPT-4 INJ, BUPIVICAINE LIPOSOME 11-07-2015 AMRIK CRAWFORD J0690 CPT-4 CEFAZOLIN SODIUM INJECTION 11-07-2015 AMRIK CRAWFORD J1642 CPT-4 INJ HEPARIN SODIUM PER 10 U 11-07-2015 AMRIK CRAWFORD J2250 CPT-4 INJ MIDAZOLAM HYDROCHLORIDE 11-07-2015 AMRIK CRAWFORD J2704 CPT-4 INJ, PROPOFOL, 10 MG 11-07-2015 AMRIK CRAWFORD J3010 CPT-4 FENTANYL CITRATE INJECITON 11-07-2015 AMRIK CRAWFORD J7120 CPT-4 RINGERS LACTATE INFUSION 11-07-2015 AMRIK CRAWFORD Functional status Functional Status Finding Observation Time Hearing Prob Loc none 31-38-837928:00 Vision Problems yes 96-06-237387:00 Vision Correct Dev glasses 73-24-841896:00 Ambulation Asst Dev none 51-28-767878:00 Range of Motion full 77-44-234346:20 Muscle Strength RUE 5 ROM full resist 20-09-983520:20 Muscle Strength RLE 5 ROM full resist 45-11-624232:20 Muscle Strength LUE 5 ROM full resist 45-42-129236:20 Muscle Strength LLE 5 ROM full resist 95-44-655481:20 Transfers assist x 1 85-65-824829:20 Ambulation in room 88-57-811520:20 Balance unsteady 60-58-155588:20 Bathing Assistance none 42-18-458063:00 Eating Assistance none 83-04-398553:00 Dressing Assistance none 94-95-574928:00 Toileting Assistance none 96-27-722165:00 Transfer Assistance none 85-66-785864:00 Decline Slf Care/Mob no 73-80-461633:00 Phys Cond Stable yes 56-57-713569:00 Nutrition normal 33-53-307134:20 Diet regular :20 Oral Cavity moist and intact : Teeth dentures :20 Dental Hygiene good :20 Abdomen Appearance flat :20 Abdomen soft :20 Bowel Sounds present :20 NG Tube no :20 Feeding Tube none :20 Wallace no : Cont Bladder Irr no :20 Ostomy no :20 Stool normal : Urination normal :20 Quality sym/unlabored : Cough absent : Breath Sounds RUL clear :20 Breath Sounds RML clear :20 Breath Sounds RLL clear : Breath Sounds LASHELL clear : Breath Sounds LLL clear :20 Airway natural : Chest Tube no :20 Oxygen no :30 C-PAP no :20 BI-PAP no :20 Temp >100.4 no :20 Temp <96.8 no :20 Chills with rigors no : HR > 90bpm no :20 Respirations > 20 no :20 Systolic <90 no :20 headache stiff neck no :20 IV Site Location Rt hand :50 IV Type peripheral :50 IV Site Information discontinued :50 IV Site Start Attmpt 3 times Comment: attempted x2. Placed by Roxanne Pérez RN on her first attempt. 0.1ml lidocaine used with each attempt. :59 IV Site Alessio 20 :50 IV Site Appearance WNL 47-93-764756:50 IV Site Color clear :50 IV Site Patent yes :59 Dressing Changed yes :59 Dressing Type gauze :50 Nursing Note Pt escorted to the west entrance, via W/C, with all belongings et in good condition. Daughter is driving pt home. :05 Cognitive Status Finding Observation Time Learning Ability comprehends well : Neurological no :20 Psychological no 40-50-224375:20 Physical no :20 Hearing no :20 Outside Sales Manager Needed no :20 Sign Language no :20 Emotional no :20 Vision no :20 Laguage no :20 Financial no :20 Vital signs Type Value Date Respiration Rate 16breaths per minute :30 Pulse 62beats per minute :30 Oxygen Saturation 99% :30 BP Systolic 112mmHg :30 BP Diastolic 59mmHg :30 Temperature 97.0F :18 Height 64inches :18 Weight 125LB :18 Social history Type Value Smoking Status NEVER SMOKER Treatment Plan No treatment plan text is available for this visit. Hospital discharge instructions Valuables no PNE Vac 2014 Flu Vac 2014 Tetanus Vac 2013
--- OUTSIDE RECORDS SUMMARY | 2017-12-29 00:01 | XMS REPORT | Clinical Summary ---
Author Author Admin, QIE Organization [facility] Address Unknown Phone Unavailable Allergies, Adverse [...] Harinder Hernandez DO Enthesopathy of hip region Breast mass, right ICD-611.72 Inactive Harinder Hernandez [...] Clostridium difficile colitis ICD-008.45 Inactive Harinder Hernandez Abdominal pain, right lower quadrant ICD-789.03 Inactive [...] 2 puffs orally twice daily MOMETASONE FUROATE 14065995346 Active Jeri Sosa RPT,RMA Active NIFEDIPINE ER 30 MG ORAL [id number] 1 daily NIFEDIPINE 46823840917 Active Tawnya Pardo MA Active TOPIRAMATE 25 MG TABS 1 tab po BID TOPIRAMATE 62474893068 No Longer Active Nettie Newberry APRN Active AMLODIPINE BESYLATE 5 MG ORAL TABS Take 1 tab po daily AMLODIPINE BESYLATE 46292646725 No Longer Active Nettie Newberry APRN Active MECLIZINE HCL 25 MG TAB 1 tablet three times daily for 3 days, then 1/2 tab three times daily for 3 days. MECLIZINE HCL 52849664857 No Longer Active Nettie Newberry APRN Active AMITRIPTYLINE HCL 25 MG ORAL TABS 1 q hs prn AMITRIPTYLINE HCL 95040408947 No Longer Active Nettie Newberry APRN Active DILAUDID 2 MG ORAL TABS Take 1/2 tab po every 4 hours as needed for pain 2014 HYDROMORPHONE HCL 44166668264 No Longer Active Nettie Newberry APRN Active CLOPIDOGREL BISULFATE 75 MG ORAL TABS 1 tab by mouth once daily CLOPIDOGREL BISULFATE 29130776447 Active Tawnya Pardo MA Active ATORVASTATIN CALCIUM 10 MG ORAL TABS 1 at bedtime ATORVASTATIN CALCIUM 78055506253 Active Tawnya Pardo MA Active LOVASTATIN 40 MG ORAL TABS Take 1 tab po every hs LOVASTATIN 82454900180 No Longer Active Harinder Hernandez DO Active PREDNISONE 20 MG TAB 2 tabs daily for 4 days, 1 tab daily for 4 days, 1/2 tab daily for 4 days PREDNISONE 32491245740 No Longer Active Harinder Hernandez DO Active LEVAQUIN 500 MG ORAL TABS Take 1 tab po daily x 8 days LEVOFLOXACIN 61638320463 No Longer Active Harinder Hernandez DO Active VENTOLIN HFA 108 (90 BASE) MCG/ACT AERS 2 -4 puffs four times a day PRN 2013 ALBUTEROL SULFATE 63680546458 No Longer Active Jeri Sosa RPT,RMA Active ACEBUTOLOL HCL 200 MG CAPS 1 cap in the morning and 2 caps in the evening ACEBUTOLOL HCL 07853736463 No Longer Active Harinder Hernandez DO Active CEFDINIR 300 MG ORAL CAPS take 1 cap po bid x 10 days CEFDINIR 53461774496 No Longer Active Harinder Hernandez DO Active LOVASTATIN 40 MG TABS 1 pill by mouth nightly for cholesterol LOVASTATIN 99002915217 No Longer Active Nettie Newberry MAHENDRA Active NITROSTAT 0.4 MG SUBL 1 tab under tongueas needed for chest pain ( may take 3 total, 5 min apart, then call 911) NITROGLYCERIN 43381089682 No Longer Active Nettieog Newberry APRN Active POTASSIUM CHLORIDE CR 10 MEQ CPCR 1 capsule by mouth daily 02/14 POTASSIUM CHLORIDE 00302034219 No Longer Active Nettie Newberry MAHENDRA Active TESSALON PERLES 100 MG CAP 1 to 2 tablets by mouth 3 times daily as needed for cough BENZONATATE 11822743141 No Longer Active Nettieog Newberry APRN Active THEOPHYLLINE ER 200 MG ORAL [id number] Take 1 tab every 12 hours THEOPHYLLINE 11493376022 Active Tawnya Pardo MA Active PREDNISONE 20 MG TAB 2 po qd x 5 days PREDNISONE 06324086957 No Longer Active Jae Morgan MD Active AZITHROMYCIN 250 MG TABS 2 po qd x 1 day, then 1 po qd x 4 days AZITHROMYCIN 38369018185 No Longer Active Jae Morgan MD Active PREDNISONE 20 MG TAB 1 tab twice daily for 3 day, then one daily for three days PREDNISONE 17796807671 No Longer Active Jae Morgan MD Active SINGULAIR 10 MG TABS 1 pill by mouth every evening for breathing. MONTELUKAST SODIUM 89592396003 Active Tawnya Pardo MA Active TYLENOL 325 MG TAB 3 by mouth q4h as needed ACETAMINOPHEN 43896730707 Active Harinder Hernandez DO Active POTASSIUM CHLORIDE ER 10 MEQ CR-TABS take 1 tab po daily POTASSIUM CHLORIDE 72060206581 No Longer Active Harinder Hernandez DO Active PREDNISONE 20 MG TAB 1 TID x 2 days, then 1 BID x 3 days, then 1 Daily x 3 days, then stop PREDNISONE 69175805365 No Longer Active Jillina Frazell SENIOR JAVA SOFTWARE ENGINEER Active LEVAQUIN 500 MG TAB 1 tablet by mouth daily LEVOFLOXACIN 22523164717 No Longer Active Jillina Frazell SENIOR JAVA SOFTWARE ENGINEER Active NEURONTIN 300 MG CAP 1 cap by mouth three times daily for restless leg 06/22 GABAPENTIN 48153082375 No Longer Active Harinder Hernandez DO Active BENZONATATE 100 MG CAPS 1 cap po TID PRN BENZONATATE 67038267067 No Longer Active Harinder Hernandez DO Active MONTELUKAST SODIUM 10 MG TABS 1 tab po in the evening MONTELUKAST SODIUM 83685631863 No Longer Active Harinder Hernandez DO Active MUPIROCIN 2 % OINT apply to affected area BID x 14 days MUPIROCIN 09899436329 No Longer Active Harinder Hernandez DO Active TYLENOL EXTRA STRENGTH 500 MG TABS as needed ACETAMINOPHEN 76871188098 No Longer Active Harinder Hernandez DO Active PREDNISONE 10 MG TABS 1 tab po daily PREDNISONE 45885960919 No Longer Active Harinder Hernandez DO Active PREDNISONE 20 MG TAB 2 tabs daily for 4 days, 1 tab daily for 4 days, 1/2 tab daily for 4 days PREDNISONE 66752135506 No Longer Active Harinder Hernandez DO Active AZITHROMYCIN 250 MG TABS 2 po qd x 1 day, then 1 po qd x 4 days AZITHROMYCIN 71173276991 No Longer Active Harinder Hernandez DO Active PREDNISONE 20 MG TAB 3 tabs today, then 1 tab twice daily for 3 day, then one daily for three days PREDNISONE 04055867947 No Longer Active Harinder Hernandez DO Active NIFEDIAC CC 30 MG [id number] 1 tablet daily for raynaud's syndrome NIFEDIPINE 34609406841 No Longer Active Tawnya Pardo MA Active AMBIEN 10 MG TAB 1/2 tab by mouth at bedtime as needed for sleep ZOLPIDEM TARTRATE 18207854110 Active Harinder Hernandez DO Active CLONAZEPAM 1 MG TABS 1 tablet at bedtime for insomnia and restless legs 09/14 CLONAZEPAM 70258653589 Active Tawnya Pardo MA Active CLONAZEPAM 0.5 MG TABS 1 tab po daily CLONAZEPAM 03293516331 No Longer Active Harinder Hernandez DO Active PREDNISONE 10 MG TAB 1 tablet daily for COPD PREDNISONE 69279863334 Active Tawnya Pardo MA Active PROAIR HFA 108 (90 BASE) MCG/ACT AERS 2 puffs four times a day as needed 2012 ALBUTEROL SULFATE 10363752243 Active Tawnya Pardo MA Active FLOVENT HFA 110 MCG/ACT AERO 2 puffs inhaled b.i.d. FLUTICASONE PROPIONATE HFA 63875209783 Active Tawnya Pardo MA Active EPIPEN 0.3 MG/0.3ML URIEL DIRECTED EPINEPHRINE Active Jeri Sosa RPT,RMA Active ACIPHEX 20 MG TBEC 1 tab po daily RABEPRAZOLE SODIUM 93783194646 Active Tawnya Pardo MA Active CLONAZEPAM 0.5 MG TABS 1 tab po daily CLONAZEPAM 0.5 MG TABS 487743 CLONAZEPAM Inactive PREDNISONE 20 MG TAB 3 tabs today, then 1 tab twice daily for 3 day, then one daily for three days PREDNISONE 20 MG TAB 554798 PREDNISONE Inactive PREDNISONE 20 MG TAB 2 tabs daily for 4 days, 1 tab daily for 4 days, 1/2 tab daily for 4 days PREDNISONE 20 MG TAB 684765 PREDNISONE Inactive PREDNISONE 10 MG TABS 1 tab po daily PREDNISONE 10 MG TABS 425284 PREDNISONE Inactive TYLENOL EXTRA STRENGTH 500 MG TABS as needed TYLENOL EXTRA STRENGTH 500 MG TABS 212272 ACETAMINOPHEN Inactive MUPIROCIN 2 % OINT apply to affected area BID x 14 days MUPIROCIN 2 % OINT 346035 MUPIROCIN Inactive MONTELUKAST SODIUM 10 MG TABS 1 tab po in the evening MONTELUKAST SODIUM 10 MG TABS 20010818 MONTELUKAST SODIUM Inactive BENZONATATE 100 MG CAPS 1 cap po TID PRN BENZONATATE 100 MG CAPS 728028 BENZONATATE Inactive NEURONTIN 300 MG CAP 1 cap by mouth three times daily for restless leg 06/22 NEURONTIN 300 MG CAP 914280 GABAPENTIN Inactive LEVAQUIN 500 MG TAB 1 tablet by mouth daily LEVAQUIN 500 MG TAB 694852 LEVOFLOXACIN Inactive PREDNISONE 20 MG TAB 1 TID x 2 days, then 1 BID x 3 days, then 1 Daily x 3 days, then stop PREDNISONE 20 MG TAB 812455 PREDNISONE Inactive POTASSIUM CHLORIDE ER 10 MEQ CR-TABS take 1 tab po daily POTASSIUM CHLORIDE ER 10 MEQ CR-TABS POTASSIUM CHLORIDE Inactive PREDNISONE 20 MG TAB 1 tab twice daily for 3 day, then one daily for three days PREDNISONE 20 MG TAB 847995 PREDNISONE Inactive TESSALON PERLES 100 MG CAP 1 to 2 tablets by mouth 3 times daily as needed for cough TESSALON PERLES 100 MG CAP 515390 BENZONATATE Inactive POTASSIUM CHLORIDE CR 10 MEQ [...] nightly for cholesterol LOVASTATIN 40 MG TABS 443837 LOVASTATIN Inactive CEFDINIR 300 MG ORAL CAPS take 1 cap po bid x 10 days CEFDINIR 300 MG ORAL CAPS 120771 CEFDINIR Inactive ACEBUTOLOL HCL 200 MG CAPS 1 cap in the morning and 2 caps in the evening ACEBUTOLOL HCL 200 MG CAPS 097761 ACEBUTOLOL HCL Inactive VENTOLIN HFA 108 (90 BASE) MCG/ACT AERS 2 -4 puffs four times a day PRN 2013 VENTOLIN HFA 108 (90 BASE) MCG/ACT AERS ALBUTEROL SULFATE Inactive LEVAQUIN 500 MG ORAL TABS Take 1 tab po daily x 8 days LEVAQUIN 500 MG ORAL TABS 316153 LEVOFLOXACIN Inactive PREDNISONE 20 MG TAB 2 tabs daily for 4 days, 1 tab daily for 4 days, 1/2 tab daily for 4 days PREDNISONE 20 MG TAB 251780 PREDNISONE Inactive LOVASTATIN 40 MG ORAL TABS Take 1 tab po every hs LOVASTATIN 40 MG ORAL TABS 249976 LOVASTATIN Inactive DILAUDID 2 MG ORAL TABS Take 1/2 tab po every 4 hours as needed for pain 2014 DILAUDID 2 MG ORAL TABS 716924 HYDROMORPHONE HCL Inactive AMITRIPTYLINE HCL 25 MG ORAL TABS 1 q hs prn AMITRIPTYLINE HCL 25 MG ORAL TABS 718329 AMITRIPTYLINE HCL Inactive MECLIZINE HCL 25 MG TAB 1 tablet three times daily for 3 days, then 1/2 tab three times daily for 3 days. MECLIZINE HCL 25 MG TAB 507551 MECLIZINE HCL Inactive AMLODIPINE BESYLATE 5 MG ORAL TABS Take 1 tab po daily AMLODIPINE BESYLATE 5 MG ORAL TABS 911257 AMLODIPINE BESYLATE Inactive TOPIRAMATE 25 MG TABS 1 tab po BID TOPIRAMATE 25 MG TABS 180965 TOPIRAMATE Inactive AZITHROMYCIN 250 MG TABS 2 po qd x 1 day, then 1 po qd x 4 days AZITHROMYCIN 250 MG TABS 6590920 AZITHROMYCIN Inactive AZITHROMYCIN 250 MG TABS 2 po qd x 1 day, then 1 po qd x 4 days AZITHROMYCIN 250 MG TABS 2585010 AZITHROMYCIN Inactive PREDNISONE 20 MG TAB 2 po qd x 5 days PREDNISONE 20 MG TAB 931815 PREDNISONE Inactive Vital Signs Date Name Value [...] E&M - 3141-9 130.9 [lb_av] Weight Measured Diagnostic Results Date Name Value Unit Range Description Lab Report: Basic Metabolic Panel - Chemistry sodium, serum 138 mmol/L 835-038 1551/09/24 potassium, serum 3.5 mmol/L 3.5-5.2 chloride, serum [...] 142-424 Encounters Code Encounter Date Provider Facility CPT-60458 Level 3 Est. Patient 18:37:17 CDT Harinder Cr [facility] CPT-50399 Level 4 Est. Patient 11:15:54 [facility]. Patient 16:42:24 CDT Harinder Cr [facility] CPT-66460 Level 3 Est. Patient 15:03:36 CDT Harinder Hernandez [facility] CPT-90416 Level 3 Est. Patient 15:03:20 CDT Harinder Cr [facility] CPT-42947 Level 3 Est. Patient 12:14:34 CDT Harinder Hernandez [facility] CPT-16812 Level 3 Est. Patient 13:47:15 CDT Harinder Hernandez [facility] CPT-04145 Level 3 Est. Patient 14:08:24 CDT Harinder Hernandez [facility] CPT-21727 Level 3 Est. Patient 10:07:15 CDT Harinder Cr [facility] CPT-81277 Level 3 Est. Patient 10:06:59 CDT Harinder Hernandez [facility] CPT-20837 Level 3 Est. Patient 15:53:29 CDT Jae Morgan MD [facility] CPT-94529 Level 3 Est. Patient 17:19:04 CDT Harinder Hernandez [facility] CPT-42565 Level 3 Est. Patient 11:13:01 CDT Harinder Hernandez [facility] CPT-48950 Level 3 Est. Patient 09:03:58 CDT Harinder Hernandez [facility] CPT-64882 Level 3 Est. 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 Patient 09:35:49 WEB PRESS OPERATOR ASSISTANT Harinder Hernandez [facility] CPT-19679 Level 3 Est. Patient 09:29:37 WEB PRESS OPERATOR ASSISTANT Harinder Hernandez [facility] CPT-77423 Level 3 Est. Patient 15:51:07 CDT Harinder Hernandez [facility] CPT-28650 Level 3 Est. Patient 18:13:13 CDT Harinder Cr [facility] CPT-97937 Level 3 Est. Patient 10:44:19 CDT Harinder Cr [facility] CPT-71388 Level 4 Est. Patient 10:07:19 WEB PRESS OPERATOR ASSISTANT Harinder Hernandez [facility] CPT-25060 Level 3 Est. Patient 15:59:32 WEB PRESS OPERATOR ASSISTANT Harinder Cr [facility] Procedures Code Procedure Name Date Entry Date Standard Description CPT-JTINJ Asp/Joint Injection 18:38:04 CDT CPT-15664 Immunization Each Additional Inj 17:38:04 CDT CPT-90890 Immunization Single Admin 17:38:04 CDT CPT-25640 Prevnar 13 17:38:04 CDT CPT-97243 Fluzone Quadrivalent preservative free (>=3yrs.) 17:38: 04 CDT CPT-16876 No Charge Offi Visit 11:14:03 CDT CPT-62585 Chest 2V Frontal and Lat 14:00:18 CDT CPT-OV Office Visit 16:10:28 CDT CPT-JTINJ Asp/Joint Injection 09:03:57 CDT CPT-Cryo Cryotherapy 09:35:49 WEB PRESS OPERATOR ASSISTANT CPT-JTINJ Asp/Joint Injection 09:34:45 WEB PRESS OPERATOR ASSISTANT CPT-J2930 Solu Medrol 125 mg (Methyl Prednisolone Sodium Succinate) 20:37:27 CDT CPT-58870 Abx/Therapy Injection 20:37:27 CDT CPT-35691 Port a cath flush 08:15:51 CDT CPT-15855 Port a cath flush 09:54:16 CDT CPT-29924 Port a cath flush 09:38:02 CDT CPT-14226 Port a cath flush 11:00:27 WEB PRESS OPERATOR ASSISTANT
--- OUTSIDE RECORDS SUMMARY | 2017-12-29 00:03 | XMS REPORT | Clinical Summary ---
Author Author Admin, QIE Organization [facility] Address Unknown Phone Unavailable Allergies, Adverse [...] Dysthymic disorder Abdominal pain 789.00 Resolved Jeri Sosa Scribe Abdominal pain, unspecified site Right leg pain 729.5 Resolved Jeri Sosa Scribe Pain in limb Viral upper respiratory tract infection 465.9 Resolved Jeri Sosa Scribe Acute upper respiratory infections of unspecified site U R I 465.9 Active Jeri Sosa Scribe Acute upper respiratory infections of unspecified site Gastroenteritis, viral, acute 008.8 Active Jeri Corteze Intestinal infection due to other organism, not elsewhere classified Weakness 780.79 Active Jeri Nieto Other malaise and fatigue Breast mass, right ICD-611.72 Inactive Harinder Hernandez DO Encounter for fitting and adjustment of vascular catheter ICD-V58.81 Inactive Harinder Hernandez DO Back pain, lumbar ICD-724.2 Inactive Harinder Hernandez DO Insomnia ICD-780.52 Inactive Harinder Hernandez DO Raynaud's syndrome ICD-443.0 Inactive Kortney Mccain Sacroiliitis, right ICD-720.2 Inactive Harinder Hernandez DO Biceps tendinitis, left ICD-726.12 Inactive Harinder W David DO Nausea and vomiting ICD-787.01 Inactive Jae Morgan MD Diarrhea ICD-787.91 Inactive Jae Morgan MD Benign positional vertigo ICD-386.11 Inactive Harinder W David DO Colon cancer screening ICD-V76.51 Inactive Harinder W David DO Screening for malignant neoplasm, colon ICD-V76.51 Inactive Harinder W David DO Pneumonia ICD-486 Inactive Harinder W David DO Bacteremia ICD-790.7 Inactive Harinder W David DO 10/02 Clostridium difficile colitis ICD-008.45 Inactive Harinder W David DO Abdominal pain, right lower quadrant ICD-789.03 Inactive Harinder W David DO Needs vaccination for influenza ICD-V04.81 Inactive Harinder W David DO Need for prophylactic vaccination against streptococcus pneumoniae ( Pneumococcus) ICD-V03.82 Inactive Harinder W David DO Greater trochanteric bursitis, left ICD-726.5 Inactive Harinder W David DO Diarrhea, acute ICD-787.91 Inactive Kortney Mccain URI ICD-465.9 Inactive Kortney Mccain Hip pain, left ICD-719.45 Inactive Kortney Mccain Edema leg ICD-782.3 Inactive Kortney Mccain 08/22 Abdominal pain ICD-789.00 Inactive Kortney Mccain Right leg pain ICD-729.5 Inactive Kortney Mccain Viral upper respiratory tract infection ICD-465.9 Inactive Kortney Mccain Medication List Medication Instructions Start Date Stop Date Generic Name NDC Status Provider Patient Instruction SPIRONOLACTONE 25 MG ORAL TABLET 1 tablet by mouth daily SPIRONOLACTONE 14666876392 No Longer Active Jeri Nieto Active PREDNISONE 20 MG ORAL TABLET 2 tablets by mouth today, then 1 tablet by mouth days 2-3 PREDNISONE 10622918943 No Longer Active Jeri Nieto Active NITROSTAT 0.4 MG SUBLINGUAL TABLET SUBLINGUAL 1 tab SL q5min PRN chest pain NITROGLYCERIN 24266358858 Active Meenu Alejo LPN Active THEOPHYLLINE ER 300 MG ORAL TABLET EXTENDED RELEASE 12 HOUR 1 po BID THEOPHYLLINE 05991148528 Active Kortney Mccain Active POTASSIUM CHLORIDE ER 20 MEQ ORAL TABLET EXTENDED RELEASE 1 po q day POTASSIUM CHLORIDE 99387016475 Active Kortney Mccain Active POTASSIUM CHLORIDE 20 MEQ ORAL PACKET 1 tab po q day POTASSIUM CHLORIDE 69887671017 No Longer Active Kortney Mccain Active POTASSIUM CHLORIDE ER 10 MEQ ORAL CAPSULE EXTENDED RELEASE 1 capsule BID 2016 POTASSIUM CHLORIDE 50659297464 No Longer Active Kortney Mccain Active LASIX 20 MG ORAL TABLET 1 tablet by mouth every morning FUROSEMIDE 18514005931 No Longer Active Kortney Mccain Active FLUOXETINE HCL 10 MG ORAL CAPSULE 1 po qd for depression/anxiety FLUOXETINE HCL 96932351190 Active Meenu Alejo LPN Active VOLTAREN 1 % TRANSDERMAL GEL apply q 6-8 hour to left arm as needed for pain DICLOFENAC SODIUM 24398671867 Active Kortney Mccain Active ALBUTEROL SULFATE (2.5 MG/3ML) 0.083% INHALATION NEBULIZATION SOLUTION 1 vial neb q 4hrs for severe asthma. imperative to have this agent ALBUTEROL SULFATE 36202830990 Active Ciera Pimentel Active NIFEDIAC CC 30 MG ORAL TABLET EXTENDED RELEASE 24 HOUR 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 NIFEDIPINE 06757459499 Active Kortney Mccain Active AMLODIPINE BESYLATE 5 MG ORAL TABLET 1 tablet by mouth daily 2016 AMLODIPINE BESYLATE 95009247479 No Longer Active Harinder Hernandez DO Active TOPAMAX 25 MG ORAL TABLET 1 tab po BID TOPIRAMATE 24299478062 Active Kortney Mccain Active FLUTICASONE PROPIONATE 50 MCG/ACT NASAL SUSPENSION 2 sprays per nostril daily PRN Allergies FLUTICASONE PROPIONATE 84131931424 Active Meenu Alejo LPN Active NIFEDIPINE ER 30 MG ORAL TABLET EXTENDED RELEASE 24 HOUR 1 daily NIFEDIPINE 08832501906 No Longer Active Harinder Hernandez DO Active FLOVENT HFA 110 MCG/ACT INHALATION AEROSOL 2 puffs inhaled b.i.d. FLUTICASONE PROPIONATE HFA 59042642979 Active Harinder Hernandez DO Active EPIPEN 2-BRUNA 0.3 MG/0.3ML INJECTION SOLUTION AUTO-INJECTOR 1 INJ NEEDED EPINEPHRINE 08504416147 Active Meenu Alejo LPN Active PREDNISONE 20 MG ORAL TABLET 1 tab twice daily for 3 day, then one daily for three days PREDNISONE 24563659868 No Longer Active Harinder Hernandez DO Active PREDNISONE 20 MG ORAL TABLET 1 tablet twice daily for 2 days, then 1 tablet once daily for 2 days PREDNISONE 27742633850 No Longer Active Harinder Hernandez DO Active ASMANEX 120 METERED DOSES 220 MCG/INH INHALATION AEROSOL POWDER BREATH ACTIVATED 2 puffs orally twice daily MOMETASONE FUROATE 59650075213 Active Jeri Sosa LPN Active TOPIRAMATE 25 MG ORAL TABLET 1 tab po BID TOPIRAMATE 98374638800 No Longer Active Nettie Newberry MAHENDRA Active AMLODIPINE BESYLATE 5 MG ORAL TABLET Take 1 tab po daily AMLODIPINE BESYLATE 29266381963 No Longer Active Nettie Newberry MAHENDRA Active MECLIZINE HCL 25 MG ORAL TABLET 1 tablet three times daily for 3 days, then 1/ 2 tab three times daily for 3 days. MECLIZINE HCL 46789219960 No Longer Active Nettieog Newberry APRN Active AMITRIPTYLINE HCL 25 MG ORAL TABLET 1 q hs prn AMITRIPTYLINE HCL 62694685916 No Longer Active Nettie Newberry MAHENDRA Active DILAUDID 2 MG ORAL TABLET Take 1/2 tab po every 4 hours as needed for pain HYDROMORPHONE HCL 72700727658 No Longer Active Nettieog Newberry APRN Active CLOPIDOGREL BISULFATE 75 MG ORAL TABLET 1 tab by mouth once daily CLOPIDOGREL BISULFATE 37058356264 Active Meenu Alejo LPN Active ATORVASTATIN CALCIUM 10 MG ORAL TABLET 1 at bedtime ATORVASTATIN CALCIUM 63531420408 Active Kortney Mccain Active LOVASTATIN 40 MG ORAL TABLET Take 1 tab po every hs LOVASTATIN 49371384985 No Longer Active Harinder Hernandez DO Active PREDNISONE 20 MG ORAL TABLET 2 tabs daily for 4 days, 1 tab daily for 4 days, 1/2 tab daily for 4 days PREDNISONE 85926084158 No Longer Active Harinder Hernandez DO Active LEVAQUIN 500 MG ORAL TABLET Take 1 tab po daily x 8 days LEVOFLOXACIN 44744023067 No Longer Active Harinder Hernandez DO Active VENTOLIN HFA 108 (90 Base) MCG/ACT INHALATION AEROSOL SOLUTION 2 -4 puffs four times a day PRN ALBUTEROL SULFATE 01818320154 No Longer Active Jeri Sosa LPN Active ACEBUTOLOL HCL 200 MG ORAL CAPSULE 1 cap in the morning and 2 caps in the evening ACEBUTOLOL HCL 06696126508 No Longer Active Harinder Hernandez DO Active CEFDINIR 300 MG ORAL CAPSULE take 1 cap po bid x 10 days CEFDINIR 36789827280 No Longer Active Harinder Hernandez DO Active LOVASTATIN 40 MG ORAL TABLET 1 pill by mouth nightly for cholesterol LOVASTATIN 37809434055 No Longer Active Nettie Newberry APRN Active NITROSTAT 0.4 MG SUBLINGUAL TABLET SUBLINGUAL 1 tab under tongueas needed for chest pain ( may take 3 total, 5 min apart, then call 911) NITROGLYCERIN 85579848784 No Longer Active Nettie Newberry APRN Active POTASSIUM CHLORIDE ER 10 MEQ ORAL CAPSULE EXTENDED RELEASE 1 capsule by mouth daily POTASSIUM CHLORIDE 54600339344 No Longer Active Nettie Newberry APRN Active TESSALON PERLES 100 MG ORAL CAPSULE 1 to 2 tablets by mouth 3 times daily as needed for cough BENZONATATE 95229956068 No Longer Active Nettie Newberry APRN Active PREDNISONE 20 MG ORAL TABLET 2 po qd x 5 days PREDNISONE 79823940362 No Longer Active Jae Morgan MD Active AZITHROMYCIN 250 MG ORAL TABLET 2 po qd x 1 day, then 1 po qd x 4 days 12/30 AZITHROMYCIN 96878266104 No Longer Active Jae Morgan MD Active PREDNISONE 20 MG ORAL TABLET 1 tab twice daily for 3 day, then one daily for three days PREDNISONE 76431809879 No Longer Active Jae Morgan MD Active SINGULAIR 10 MG ORAL TABLET 1 pill by mouth every evening for breathing. 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 NEURONTIN 300 MG ORAL CAPSULE 1 cap by mouth three times daily for restless leg GABAPENTIN 31653641431 No Longer Active Harinder Hernandez DO Active BENZONATATE 100 MG ORAL CAPSULE 1 cap po TID PRN BENZONATATE 52408693702 No Longer Active Harinder Hernandez DO Active MONTELUKAST SODIUM 10 MG ORAL TABLET 1 tab po in the evening 2014 MONTELUKAST SODIUM 41754327423 No Longer Active Harinder Hernandez DO Active MUPIROCIN 2 % EXTERNAL OINTMENT apply to affected area BID x 14 days MUPIROCIN 95430224862 No Longer Active Harinder Hernandez DO Active TYLENOL EXTRA STRENGTH 500 MG ORAL TABLET as needed ACETAMINOPHEN 74978391626 No Longer Active Harinder Hernandez DO Active PREDNISONE 10 MG ORAL TABLET 1 tab po daily PREDNISONE 21363165484 No Longer Active Harinder Hernandez DO Active PREDNISONE 20 MG ORAL TABLET 2 tabs daily for 4 days, 1 tab daily for 4 days, 1/2 tab daily for 4 days PREDNISONE 87648872345 No Longer Active Harinder Hernandez DO Active AZITHROMYCIN 250 MG ORAL TABLET 2 po qd x 1 day, then 1 po qd x 4 days 04/06 AZITHROMYCIN 36118048419 No Longer Active Harinder Hernandez DO Active PREDNISONE 20 MG ORAL TABLET 3 tabs today, then 1 tab twice daily for 3 day, then one daily for three days PREDNISONE 25923613510 No Longer Active Harinder Hernandez DO Active NIFEDIAC CC 30 MG ORAL TABLET EXTENDED RELEASE 24 HOUR 1 tablet daily for raynaud's syndrome NIFEDIPINE 92510426147 No Longer Active Tawnya Pardo MA Active AMBIEN 10 MG ORAL TABLET 1/2 tab by mouth at bedtime as needed for sleep 2013 ZOLPIDEM TARTRATE 77852786202 Active Meenu Alejo LPN Active CLONAZEPAM 1 MG ORAL TABLET 1 tablet at bedtime for insomnia and restless legs CLONAZEPAM 65913984097 Active Meenu Alejo LPN Active CLONAZEPAM 0.5 MG ORAL TABLET 1 tab po daily CLONAZEPAM 80167229887 No Longer Active Harinder Hernandez DO Active PREDNISONE 10 MG ORAL TABLET 1 tablet daily for COPD PREDNISONE 14569983188 Active Kortney Mccain Active PROAIR HFA 108 (90 Base) MCG/ACT INHALATION AEROSOL SOLUTION 2 puffs four times a day as needed ALBUTEROL SULFATE 24415096371 Active Harinder Hernandez DO Active FLOVENT HFA 110 MCG/ACT INHALATION AEROSOL 2 puffs inhaled b.i.d. FLUTICASONE PROPIONATE HFA 14816712975 Active Kortney Mccain Active ACIPHEX 20 MG ORAL TABLET DELAYED RELEASE 1 tab po daily RABEPRAZOLE SODIUM 20056045040 Active Meenu Alejo LPN Active CLONAZEPAM 0.5 MG ORAL TABLET 1 tab po daily CLONAZEPAM 0.5 MG ORAL TABLET 817222 CLONAZEPAM Inactive PREDNISONE 20 MG ORAL TABLET 3 tabs today, then 1 tab twice daily for 3 day, then one daily for three days PREDNISONE 20 MG ORAL TABLET 481015 PREDNISONE Inactive PREDNISONE 20 MG ORAL TABLET 2 tabs daily for 4 days, 1 tab daily for 4 days, 1/2 tab daily for 4 days PREDNISONE 20 MG ORAL TABLET 283877 PREDNISONE Inactive PREDNISONE 10 MG ORAL TABLET 1 tab po daily PREDNISONE 10 MG ORAL TABLET 763467 PREDNISONE Inactive TYLENOL EXTRA STRENGTH 500 MG ORAL TABLET as needed TYLENOL EXTRA STRENGTH 500 MG ORAL TABLET 148510 ACETAMINOPHEN Inactive MUPIROCIN 2 % EXTERNAL OINTMENT apply to affected area BID x 14 days MUPIROCIN 2 % EXTERNAL OINTMENT 456586 MUPIROCIN Inactive MONTELUKAST SODIUM 10 MG ORAL TABLET 1 tab po in the evening 2014 MONTELUKAST SODIUM 10 MG ORAL TABLET 440317 MONTELUKAST SODIUM Inactive BENZONATATE 100 MG ORAL CAPSULE 1 cap po TID PRN BENZONATATE 100 MG ORAL CAPSULE 593763 BENZONATATE Inactive NEURONTIN 300 MG ORAL CAPSULE 1 cap by mouth three times daily for restless leg NEURONTIN 300 MG ORAL CAPSULE 631993 GABAPENTIN Inactive LEVAQUIN 500 MG ORAL TABLET 1 tablet by mouth daily LEVAQUIN 500 MG ORAL TABLET 097589 LEVOFLOXACIN Inactive PREDNISONE 20 MG ORAL TABLET 1 TID x 2 days, then 1 BID x 3 days, then 1 Daily x 3 days, then stop PREDNISONE 20 MG ORAL TABLET 851487 PREDNISONE Inactive POTASSIUM CHLORIDE ER 10 MEQ ORAL TABLET EXTENDED RELEASE take 1 tab po daily POTASSIUM CHLORIDE ER 10 MEQ ORAL TABLET EXTENDED RELEASE POTASSIUM CHLORIDE Inactive PREDNISONE 20 MG ORAL TABLET 1 tab twice daily for 3 day, then one daily for three days PREDNISONE 20 MG ORAL TABLET 679676 PREDNISONE Inactive TESSALON PERLES 100 MG ORAL CAPSULE 1 to 2 tablets by mouth 3 times daily as needed for cough TESSALON PERLES 100 MG ORAL CAPSULE 026100 BENZONATATE Inactive POTASSIUM CHLORIDE ER 10 MEQ ORAL CAPSULE EXTENDED RELEASE 1 capsule by mouth daily POTASSIUM CHLORIDE ER 10 MEQ ORAL CAPSULE EXTENDED RELEASE POTASSIUM CHLORIDE Inactive NITROSTAT 0.4 MG SUBLINGUAL TABLET SUBLINGUAL 1 tab under tongueas needed for chest pain ( may take 3 total, 5 min apart, then call 911) NITROSTAT 0.4 MG SUBLINGUAL TABLET SUBLINGUAL 058484 NITROGLYCERIN Inactive LOVASTATIN 40 MG ORAL TABLET 1 pill by mouth nightly for cholesterol LOVASTATIN 40 MG ORAL TABLET 005087 LOVASTATIN Inactive CEFDINIR 300 MG ORAL CAPSULE take 1 cap po bid x 10 days CEFDINIR 300 MG ORAL CAPSULE 404316 CEFDINIR Inactive ACEBUTOLOL HCL 200 MG ORAL CAPSULE 1 cap in the morning and 2 caps in the evening ACEBUTOLOL HCL 200 MG ORAL CAPSULE 175596 ACEBUTOLOL HCL Inactive VENTOLIN HFA 108 (90 Base) MCG/ACT INHALATION AEROSOL SOLUTION 2 -4 puffs four times a day PRN VENTOLIN HFA 108 (90 Base) MCG/ ACT INHALATION AEROSOL SOLUTION ALBUTEROL SULFATE Inactive LEVAQUIN 500 MG ORAL TABLET Take 1 tab po daily x 8 days LEVAQUIN 500 MG ORAL TABLET 612064 LEVOFLOXACIN Inactive PREDNISONE 20 MG ORAL TABLET 2 tabs daily for 4 days, 1 tab daily for 4 days, 1/2 tab daily for 4 days PREDNISONE 20 MG ORAL TABLET 341014 PREDNISONE Inactive LOVASTATIN 40 MG ORAL TABLET Take 1 tab po every hs LOVASTATIN 40 MG ORAL TABLET 823474 LOVASTATIN Inactive DILAUDID 2 MG ORAL TABLET Take 1/2 tab po every 4 hours as needed for pain DILAUDID 2 MG ORAL TABLET 641265 HYDROMORPHONE HCL Inactive AMITRIPTYLINE HCL 25 MG ORAL TABLET 1 q hs prn AMITRIPTYLINE HCL 25 MG ORAL TABLET 985481 AMITRIPTYLINE HCL Inactive MECLIZINE HCL 25 MG ORAL TABLET 1 tablet three times daily for 3 days, then 1/ 2 tab three times daily for 3 days. MECLIZINE HCL 25 MG ORAL TABLET 646701 MECLIZINE HCL Inactive AMLODIPINE BESYLATE 5 MG ORAL TABLET Take 1 tab po daily AMLODIPINE BESYLATE 5 MG ORAL TABLET 663867 AMLODIPINE BESYLATE Inactive TOPIRAMATE 25 MG ORAL TABLET 1 tab po BID TOPIRAMATE 25 MG ORAL TABLET 483937 TOPIRAMATE Inactive PREDNISONE 20 MG ORAL TABLET 1 tablet twice daily for 2 days, then 1 tablet once daily for 2 days PREDNISONE 20 MG ORAL TABLET 260243 PREDNISONE Inactive PREDNISONE 20 MG ORAL TABLET 1 tab twice daily for 3 day, then one daily for three days PREDNISONE 20 MG ORAL TABLET 981228 PREDNISONE Inactive NIFEDIPINE ER 30 MG ORAL TABLET EXTENDED RELEASE 24 HOUR 1 daily NIFEDIPINE ER 30 MG ORAL TABLET EXTENDED RELEASE 24 HOUR NIFEDIPINE Inactive AMLODIPINE BESYLATE 5 MG ORAL TABLET 1 tablet by mouth daily 2016 AMLODIPINE BESYLATE 5 MG ORAL TABLET 236071 AMLODIPINE BESYLATE Inactive LASIX 20 MG ORAL TABLET 1 tablet by mouth every morning LASIX 20 MG ORAL TABLET 987050 FUROSEMIDE Inactive POTASSIUM CHLORIDE ER 10 MEQ ORAL CAPSULE EXTENDED RELEASE 1 capsule BID 2016 POTASSIUM CHLORIDE ER 10 MEQ ORAL CAPSULE EXTENDED RELEASE POTASSIUM CHLORIDE Inactive POTASSIUM CHLORIDE 20 MEQ ORAL PACKET 1 tab po q day POTASSIUM CHLORIDE 20 MEQ ORAL PACKET 4944454 POTASSIUM CHLORIDE Inactive PREDNISONE 20 MG ORAL TABLET 2 tablets by mouth today, then 1 tablet by mouth days 2-3 PREDNISONE 20 MG ORAL TABLET 580606 PREDNISONE Inactive SPIRONOLACTONE 25 MG ORAL TABLET 1 tablet by mouth daily SPIRONOLACTONE 25 MG ORAL TABLET 778491 SPIRONOLACTONE Inactive AZITHROMYCIN 250 MG ORAL TABLET 2 po qd x 1 day, then 1 po qd x 4 days 04/06 AZITHROMYCIN 250 MG ORAL TABLET 269332 AZITHROMYCIN Inactive AZITHROMYCIN 250 MG ORAL TABLET 2 po qd x 1 day, then 1 po qd x 4 days 12/30 AZITHROMYCIN 250 MG ORAL TABLET 536695 AZITHROMYCIN Inactive PREDNISONE 20 MG ORAL TABLET 2 po qd x 5 days PREDNISONE 20 MG ORAL TABLET 544001 PREDNISONE Inactive Vital Signs Date Name Value [...] Panel - Chemistry sodium, serum 140 mmol/L 499-814 1927/07/13 potassium, serum 3.2 mmol/L 3.5-5.2 chloride, serum 103 mmol/L 98-107 carbon dioxide, venous blood 26.9 mmol/L 21.0-32.0 blood glucose 93 mg/dL 65-110 calcium, serum 9.2 mg/dL 8.5-10.1 urea nitrogen, blood 13 mg/dL 7-18 creatinine, serum 0.84 mg/dL 0.60-1.30 sodium, serum 140 mmol/L 637-301 9459/08/21 potassium, serum 3.8 mmol/L 3.5-5.2 chloride, serum [...] ... - Chemistry sodium, serum 141 mmol/L 186-864 4945/08/07 carbon dioxide, venous blood 34.0 mmol/L 21.0-32.0 [...] 1.40 mg/dL 0.00-1.00 cholesterol, serum 192 mg/dL 840-581 6529/10/19 triglyceride, serum, fasting 71 mg/dL 30-200 HDL cholesterol, serum 72 mg/dL 32-60 LDL cholesterol, serum 106 mg/dL 0-130 Lab Report: Rapid Strep - Lab Microbial identification kit, rapid strep method Negative Negative Lab Report: THEOPHYLLINE - Toxicology theophylline level, serum 3.1 ug/mL 10.0-20.0 Encounters Code Encounter Date Provider Facility CPT-76133 Level 3 Est. Patient 12:36:15 DATA SME Harinder Cr [facility] CPT-99471 Level 3 Est. Patient 15:14:45 DATA SME Harinder Cr [facility] CPT-94950 Level 4 Est. Patient 14:45:25 CDT Harinder Cr [facility] CPT-40174 Level 4 Est. Patient 09:15:13 CDT Harinder Cr [facility] CPT-37090 Level 3 Est. Patient 11:51:58 CDT Harinder Cr [facility] CPT-24006 Level 3 Est. Patient 11:30:05 CDT Harinder Cr [facility] CPT-55319 Level 4 Est. Patient 10:19:23 CDT Harinder Cr [facility] CPT-02770 Level 3 Est. Patient 09:58:58 CDT Harinder Cr [facility] CPT-48432 Level 3 Est. Patient 12:37:21 CDT Harinder Cr [facility] CPT-03440 Level 3 Est. Patient 18:37:17 CDT Harinder Cr [facility] CPT-35843 Level 4 Est. Patient 11:15:54 CDT Nettie Rohith [facility] CPT-34622 Level 3 Est. Patient 16:42:24 CDT Harinder Cr [facility] CPT-46639 Level 3 Est. Patient 15:03:36 CDT Harinder Cr [facility] CPT-89452 Level 3 Est. Patient 15:03:20 CDT Harinder Shaye [facility] CPT-05936 Level 3 Est. Patient 12:14:34 CDT Harinder Shaye [facility] CPT-71503 Level 3 Est. Patient 13:47:15 CDT Harinder Cr [facility] CPT-72432 Level 3 Est. Patient 14:08:24 CDT Harinder Hernandez [facility] CPT-00895 Level 3 Est. Patient 10:07:15 CDT Harinder Hernandez [facility] CPT-70325 Level 3 Est. Patient 10:06:59 CDT Harinder Hernandez [facility] CPT-99135 Level 3 Est. Patient 15:53:29 CDT Jae Morgan MD [facility] CPT-42263 Level 3 Est. Patient 17:19:04 CDT Harinder Hernandez [facility] CPT-03395 Level 3 Est. Patient 11:13:01 CDT Harinder Hernandez [facility] CPT-69998 Level 3 Est. Patient 09:03:58 CDT Harinder Hernandez [facility] CPT-87792 Level 3 Est. Patient 14:46:45 DATA SME Harinder Hernandez [facility] CPT-57822 Level 3 Est. Patient 09:35:49 DATA SME Harinder Hernandez [facility] CPT-05040 Level 3 Est. Patient 09:29:37 DATA SME Harinder Hernandez [facility] CPT-91176 Level 3 Est. Patient 15:51:07 CDT Harinder Hernandez [facility] CPT-94499 Level 3 Est. Patient 18:13:13 CDT Harinder Hernandez [facility] CPT-49992 Level 3 Est. Patient 10:44:19 CDT Harinder Shaye [facility] CPT-90308 Level 4 Est. Patient 10:07:19 DATA SME Harinder Cr [facility] CPT-29056 Level 3 Est. Patient 15:59:32 DATA SME Harinder Cr [facility] Procedures Code Procedure Name Date Entry Date Standard Description CPT-84802 Abd compl w upright - XRAY USE ONLY 14:48:09 CDT 02/18 CPT-67685 Port a cath flush 13:46:05 CDT CPT-82778 Hip, complete, 2-3 views - XRAY USE ONLY 10:28:40 CDT CPT-43349 BMP - LAB USE ONLY 16:45:09 DATA SME CPT-03862 Port a cath flush 12:00:13 DATA SME CPT-TCMM Transitional Care Mgmt-Moderate 11:20:16 DATA SME CPT-75383 First Vx - Ix admin for Medicare patients 17:35:15 CDT CPT-97141 Fluzone Preservative Free Intramuscular Suspension 17:35 :15 CDT CPT-60470 Microalbumin - LAB USE ONLY 11:52:05 CDT CPT-TCMM Transitional Care Mgmt-Moderate 11:33:57 CDT CPT-13653 No Charge Offi Visit 14:11:29 CDT CPT-38340 Magnesium - LAB USE ONLY 10:45:44 CDT CPT-81735 Lipid - LAB USE ONLY 10:45:44 CDT CPT-61902 CBC - LAB USE ONLY 10:45:44 CDT CPT-40042 Venipuncture Draw Fee 10:45:43 CDT CPT-90510 Venipuncture Draw Fee 18:21:27 CDT CPT-JTINJ Asp/Joint Injection 18:38:04 CDT CPT-62758 Immunization Each Additional Inj 17:38:04 CDT CPT-72493 Immunization Single Admin 17:38:04 CDT CPT-17754 Prevnar 13 17:38:04 CDT CPT-39390 Fluzone Quadrivalent preservative free (>=3yrs.) 17:38: 04 CDT CPT-76778 No Charge Offi Visit 11:14:03 CDT CPT-37109 Chest 2V Frontal and Lat 14:00:18 CDT CPT-OV Office Visit 16:10:28 CDT CPT-JTINJ Asp/Joint Injection 09:03:57 CDT CPT-Cryo Cryotherapy 09:35:49 DATA SME CPT-JTINJ Asp/Joint Injection 09:34:45 DATA SME CPT-J2930 Solu Medrol 125 mg (Methyl Prednisolone Sodium Succinate) 20:37:27 CDT CPT-41164 Abx/Therapy Injection 20:37:27 CDT CPT-65693 Port a cath flush 08:15:51 CDT CPT-05432 Port a cath flush 09:54:16 CDT CPT-30660 Port a cath flush 09:38:02 CDT CPT-50315 Port a cath flush 11:00:27 DATA SME
--- OUTSIDE RECORDS SUMMARY | 2017-12-29 00:04 | XMS REPORT | Clinical Summary ---
Author Author Admin, QIE Organization [facility] Address Unknown Phone Unavailable Allergies, Adverse Reactions, [...] MG/0.3ML INJ SOAJ 1 INJ NEEDED EPINEPHRINE 49396861401 Active Tawnya Pardo MA Active PREDNISONE 20 MG TAB 1 tab twice daily for 3 day, then one daily for three days PREDNISONE 65172159460 No Longer Active Harinder Hernandez DO Active PREDNISONE 20 MG TAB 1 tablet twice daily for 2 days, then 1 tablet once daily for 2 days PREDNISONE 83935516186 No Longer Active Harinder Hernandez DO Active ASMANEX 120 METERED DOSES 220 MCG/INH INH AEPB 2 puffs orally twice daily MOMETASONE FUROATE 26413841016 Active Jeri Sosa RPT,RMA Active NIFEDIPINE ER 30 MG ORAL [id number] 1 daily NIFEDIPINE 01712937261 Active Kaylah Newberry Active TOPIRAMATE 25 MG TABS 1 tab po BID TOPIRAMATE 97760003209 No Longer Active Nettie Newberry APRN Active AMLODIPINE BESYLATE 5 MG ORAL TABS Take 1 tab po daily AMLODIPINE BESYLATE 11632519240 No Longer Active Nettie Newberry APRN Active MECLIZINE HCL 25 MG TAB 1 tablet three times daily for 3 days, then 1/2 tab three times daily for 3 days. MECLIZINE HCL 58724323646 No Longer Active Nettie Newberry APRN Active AMITRIPTYLINE HCL 25 MG ORAL TABS 1 q hs prn AMITRIPTYLINE HCL 39059177402 No Longer Active Nettie Newberry APRN Active DILAUDID 2 MG ORAL TABS Take 1/2 tab po every 4 hours as needed for pain 2014 HYDROMORPHONE HCL 35077468220 No Longer Active Nettie Newberry APRN Active CLOPIDOGREL BISULFATE 75 MG ORAL TABS 1 tab by mouth once daily CLOPIDOGREL BISULFATE 09440574510 Active Tawnya Pardo MA Active ATORVASTATIN CALCIUM 10 MG ORAL TABS 1 at bedtime ATORVASTATIN CALCIUM 04867529761 Active Tawnay Pardo MA Active LOVASTATIN 40 MG ORAL TABS Take 1 tab po every hs LOVASTATIN 51609689707 No Longer Active Harinder Hernandez DO Active PREDNISONE 20 MG TAB 2 tabs daily for 4 days, 1 tab daily for 4 days, 1/2 tab daily for 4 days PREDNISONE 02660210193 No Longer Active Harinder Hernandez DO Active LEVAQUIN 500 MG ORAL TABS Take 1 tab po daily x 8 days LEVOFLOXACIN 11776482313 No Longer Active Harinder Hernandez DO Active VENTOLIN HFA 108 (90 BASE) MCG/ACT AERS 2 -4 puffs four times a day PRN 2013 ALBUTEROL SULFATE 13918880110 No Longer Active Jeri Sosa RPT,RMA Active ACEBUTOLOL HCL 200 MG CAPS 1 cap in the morning and 2 caps in the evening ACEBUTOLOL HCL 24802878593 No Longer Active Harinder Hernandez DO Active CEFDINIR 300 MG ORAL CAPS take 1 cap po bid x 10 days CEFDINIR 76731715207 No Longer Active Harinder Hernandez DO Active LOVASTATIN 40 MG TABS 1 pill by mouth nightly for cholesterol LOVASTATIN 12403556983 No Longer Active Nettie Newberry APRN Active NITROSTAT 0.4 MG SUBL 1 tab under tongueas needed for chest pain ( may take 3 total, 5 min apart, then call 911) NITROGLYCERIN 79649786002 No Longer Active Nettie Newberry APRN Active POTASSIUM CHLORIDE CR 10 MEQ CPCR 1 capsule by mouth daily 02/14 POTASSIUM CHLORIDE 07182332819 No Longer Active Nettie Newberry APRN Active TESSALON PERLES 100 MG CAP 1 to 2 tablets by mouth 3 times daily as needed for cough BENZONATATE 28280653982 No Longer Active Nettie Newberry APRN Active THEOPHYLLINE ER 200 MG ORAL [id number] Take 1 tab every 12 hours THEOPHYLLINE 53716652453 Active Tawnya Pardo MA Active PREDNISONE 20 MG TAB 2 po qd x 5 days PREDNISONE 41841653966 No Longer Active Jae Morgan MD Active AZITHROMYCIN 250 MG TABS 2 po qd x 1 day, then 1 po qd x 4 days AZITHROMYCIN 68087615244 No Longer Active Jae Morgan MD Active PREDNISONE 20 MG TAB 1 tab twice daily for 3 day, then one daily for three days PREDNISONE 81204237885 No Longer Active Jae Morgan MD Active SINGULAIR 10 MG TABS 1 pill by mouth every evening for breathing. MONTELUKAST SODIUM 64107221324 Active Tawnya Pardo MA Active TYLENOL 325 MG TAB 3 by mouth q4h as needed ACETAMINOPHEN 26585799842 Active Harinder Hernandez DO Active POTASSIUM CHLORIDE ER 10 MEQ CR-TABS take 1 tab po daily POTASSIUM CHLORIDE 38842435698 No Longer Active Harinder Hernandez DO Active PREDNISONE 20 MG TAB 1 TID x 2 days, then 1 BID x 3 days, then 1 Daily x 3 days, then stop PREDNISONE 98630712603 No Longer Active John Montemayor APRN Active LEVAQUIN 500 MG TAB 1 tablet by mouth daily LEVOFLOXACIN 76358972584 No Longer Active Jillkvng Montemayor APRN Active NEURONTIN 300 MG CAP 1 cap by mouth three times daily for restless leg 06/22 GABAPENTIN 92529844152 No Longer Active Harinder Hernandez DO Active BENZONATATE 100 MG CAPS 1 cap po TID PRN BENZONATATE 63779481959 No Longer Active Harinder Hernandez DO Active MONTELUKAST SODIUM 10 MG TABS 1 tab po in the evening MONTELUKAST SODIUM 07498922078 No Longer Active Harinder Hernandez DO Active MUPIROCIN 2 % OINT apply to affected area BID x 14 days MUPIROCIN 00129809164 No Longer Active Harinder Hernandez DO Active TYLENOL EXTRA STRENGTH 500 MG TABS as needed ACETAMINOPHEN 29747130458 No Longer Active Harinder Hernandez DO Active PREDNISONE 10 MG TABS 1 tab po daily PREDNISONE 75044436392 No Longer Active Harinder Hernandez DO Active PREDNISONE 20 MG TAB 2 tabs daily for 4 days, 1 tab daily for 4 days, 1/2 tab daily for 4 days PREDNISONE 20870470540 No Longer Active Harinder Hernandez DO Active AZITHROMYCIN 250 MG TABS 2 po qd x 1 day, then 1 po qd x 4 days AZITHROMYCIN 45941903815 No Longer Active Harinder Hernandez DO Active PREDNISONE 20 MG TAB 3 tabs today, then 1 tab twice daily for 3 day, then one daily for three days PREDNISONE 09336472351 No Longer Active Harinder Hernandez DO Active NIFEDIAC CC 30 MG [id number] 1 tablet daily for raynaud's syndrome NIFEDIPINE 66280131050 No Longer Active Tawnya Pardo MA Active AMBIEN 10 MG TAB 1/2 tab by mouth at bedtime as needed for sleep ZOLPIDEM TARTRATE 28336524028 Active Harinder Hernandez DO Active CLONAZEPAM 1 MG TABS 1 tablet at bedtime for insomnia and restless legs 09/14 CLONAZEPAM 77239248757 Active Kaylah Newberry Active CLONAZEPAM 0.5 MG TABS 1 tab po daily CLONAZEPAM 29508309788 No Longer Active Harinder Hernandez DO Active PREDNISONE 10 MG TAB 1 tablet daily for COPD PREDNISONE 07488806566 Active Tawnya Pardo MA Active PROAIR HFA 108 (90 BASE) MCG/ACT AERS 2 puffs four times a day as needed 2012 ALBUTEROL SULFATE 91196447275 Active Tawnya Pardo MA Active FLOVENT HFA 110 MCG/ACT AERO 2 puffs inhaled b.i.d. FLUTICASONE PROPIONATE HFA 52100589649 Active Tawnya Pardo MA Active ACIPHEX 20 MG TBEC 1 tab po daily RABEPRAZOLE SODIUM 15733422892 Active Kaylah Newberry Active CLONAZEPAM 0.5 MG TABS 1 tab po daily CLONAZEPAM 0.5 MG TABS 471029 CLONAZEPAM Inactive PREDNISONE 20 MG TAB 3 tabs today, then 1 tab twice daily for 3 day, then one daily for three days PREDNISONE 20 MG TAB 538932 PREDNISONE Inactive PREDNISONE 20 MG TAB 2 tabs daily for 4 days, 1 tab daily for 4 days, 1/2 tab daily for 4 days PREDNISONE 20 MG TAB 295627 PREDNISONE Inactive PREDNISONE 10 MG TABS 1 tab po daily PREDNISONE 10 MG TABS 741282 PREDNISONE Inactive TYLENOL EXTRA STRENGTH 500 MG TABS as needed TYLENOL EXTRA STRENGTH 500 MG TABS 400147 ACETAMINOPHEN Inactive MUPIROCIN 2 % OINT apply to affected area BID x 14 days MUPIROCIN 2 % OINT 279981 MUPIROCIN Inactive MONTELUKAST SODIUM 10 MG TABS 1 tab po in the evening MONTELUKAST SODIUM 10 MG TABS 852837 MONTELUKAST SODIUM Inactive BENZONATATE 100 MG CAPS 1 cap po TID PRN BENZONATATE 100 MG CAPS 356239 BENZONATATE Inactive NEURONTIN 300 MG CAP 1 cap by mouth three times daily for restless leg 06/22 NEURONTIN 300 MG CAP 630807 GABAPENTIN Inactive LEVAQUIN 500 MG TAB 1 tablet by mouth daily LEVAQUIN 500 MG TAB 110331 LEVOFLOXACIN Inactive PREDNISONE 20 MG TAB 1 TID x 2 days, then 1 BID x 3 days, then 1 Daily x 3 days, then stop PREDNISONE 20 MG TAB 790347 PREDNISONE Inactive POTASSIUM CHLORIDE ER 10 MEQ CR-TABS take 1 tab po daily POTASSIUM CHLORIDE ER 10 MEQ CR-TABS POTASSIUM CHLORIDE Inactive PREDNISONE 20 MG TAB 1 tab twice daily for 3 day, then one daily for three days PREDNISONE 20 MG TAB 200513 PREDNISONE Inactive TESSALON PERLES 100 MG CAP 1 to 2 tablets by mouth 3 times daily as needed for cough TESSALON PERLES 100 MG CAP 895468 BENZONATATE Inactive POTASSIUM CHLORIDE CR 10 MEQ CPCR 1 capsule by mouth daily 02/14 POTASSIUM CHLORIDE CR 10 MEQ CPCR POTASSIUM CHLORIDE Inactive NITROSTAT 0.4 MG SUBL 1 tab under tongueas needed for chest pain ( may take 3 total, 5 min apart, then call 911) NITROSTAT 0.4 MG SUBL 772911 NITROGLYCERIN Inactive LOVASTATIN 40 MG TABS 1 pill by mouth nightly for cholesterol LOVASTATIN 40 MG TABS 358112 LOVASTATIN Inactive CEFDINIR 300 MG ORAL CAPS take 1 cap po bid x 10 days CEFDINIR 300 MG ORAL CAPS 295599 CEFDINIR Inactive ACEBUTOLOL HCL 200 MG CAPS 1 cap in the morning and 2 caps in the evening ACEBUTOLOL HCL 200 MG CAPS 970826 ACEBUTOLOL HCL Inactive VENTOLIN HFA 108 (90 BASE) MCG/ACT AERS 2 -4 puffs four times a day PRN 2013 VENTOLIN HFA 108 (90 BASE) MCG/ACT AERS ALBUTEROL SULFATE Inactive LEVAQUIN 500 MG ORAL TABS Take 1 tab po daily x 8 days LEVAQUIN 500 MG ORAL TABS 619509 LEVOFLOXACIN Inactive PREDNISONE 20 MG TAB 2 tabs daily for 4 days, 1 tab daily for 4 days, 1/2 tab daily for 4 days PREDNISONE 20 MG TAB 870667 PREDNISONE Inactive LOVASTATIN 40 MG ORAL TABS Take 1 tab po every hs LOVASTATIN 40 MG ORAL TABS 959239 LOVASTATIN Inactive DILAUDID 2 MG ORAL TABS Take 1/2 tab po every 4 hours as needed for pain 2014 DILAUDID 2 MG ORAL TABS 699088 HYDROMORPHONE HCL Inactive AMITRIPTYLINE HCL 25 MG ORAL TABS 1 q hs prn AMITRIPTYLINE HCL 25 MG ORAL TABS 354693 AMITRIPTYLINE HCL Inactive MECLIZINE HCL 25 MG TAB 1 tablet three times daily for 3 days, then 1/2 tab three times daily for 3 days. MECLIZINE HCL 25 MG TAB 382181 MECLIZINE HCL Inactive AMLODIPINE BESYLATE 5 MG ORAL TABS Take 1 tab po daily AMLODIPINE BESYLATE 5 MG ORAL TABS 382832 AMLODIPINE BESYLATE Inactive TOPIRAMATE 25 MG TABS 1 tab po BID TOPIRAMATE 25 MG TABS 004881 TOPIRAMATE Inactive PREDNISONE 20 MG TAB 1 tablet twice daily for 2 days, then 1 tablet once daily for 2 days PREDNISONE 20 MG TAB 793339 PREDNISONE Inactive PREDNISONE 20 MG TAB 1 tab twice daily for 3 day, then one daily for three days PREDNISONE 20 MG TAB 832275 PREDNISONE Inactive AZITHROMYCIN 250 MG TABS 2 po qd x 1 day, then 1 po qd x 4 days AZITHROMYCIN 250 MG TABS 9212494 AZITHROMYCIN Inactive AZITHROMYCIN 250 MG TABS 2 po qd x 1 day, then 1 po qd x 4 days AZITHROMYCIN 250 MG TABS 8704840 AZITHROMYCIN Inactive PREDNISONE 20 MG TAB 2 po qd x 5 days PREDNISONE 20 MG TAB 531923 PREDNISONE Inactive Vital Signs Date Name Value [...] Range Description Lab Report: CBC - Hematology erythrocyte (RBC) count 4.09 10^6/MM^3 10*6/mm3 4.04-5.48 hemoglobin, blood 13.4 g/dL 12.0-16.0 hematocrit, blood 39.2 % 36.0-46.0 mean corpuscular volume, RBC 96 fL 80-97 mean corpuscular hemoglobin, RBC 32.8 pg 27.0-31.2 leukocyte count, blood 5.6 10^3/MM^3 10*3/mm3 4.6-10.2 mean corpuscular hemoglobin concentration, RBC 34.3 G/DL % 31.8- 35.4 red blood cell distribution width 13.9 % 11.6-14.8 platelet count 182 10^3/MM^3 10*3/mm3 142-424 Lab Report: Lipid Panel, Comp. Metabolic Panel, Magnesium - Chemistry urea nitrogen, blood 9 mg/dL 7-18 blood glucose 89 mg/dL 65-110 chloride, serum 105 mmol/L 98-107 potassium, serum 3.7 mmol/L 3.5-5.2 carbon dioxide, venous blood 27.4 mmol/L 21.0-32.0 creatinine, serum 0.91 mg/dL 0.55-1.30 alanine aminotransferase (SGPT), serum 22 U/L 12-78 aspartate aminotransferase (SGOT), serum 21 U/L 15-37 calcium, serum 8.6 mg/dL 8.5-10.1 bilirubin, serum, total 0.40 mg/dL 0.00-1.00 sodium, serum 142 mmol/L 398-134 9032/08/08 LDL cholesterol, serum 96 mg/dL 0-130 HDL [...] 10.0-20.0 Encounters Code Encounter Date Provider Facility CPT-87077 Level 3 Est. Patient 09:58:58 CDT Harinder Cr [facility] CPT-08782 Level 3 Est. Patient 12:37:21 CDT Harinder Cr [facility] CPT-44679 Level 3 Est. Patient 18:37:17 CDT Harinder Cr [facility] CPT-54364 Level 4 Est. Patient 11:15:54 CDT Nettie Newberry LIFESTYLE COORDINATOR [facility] CPT-15578 Level 3 Est. Patient 16:42:24 CDT Harinder Cr [facility] CPT-05412 Level 3 Est. Patient 15:03:36 CDT Harinder W [facility] CPT-33197 Level 3 Est. Patient 15:03:20 CDT Harinder Hernandez [facility] CPT-98735 Level 3 Est. Patient 12:14:34 CDT Harinder Hernandez [facility] CPT-94643 Level 3 Est. Patient 13:47:15 CDT Harinder Hernandez [facility] CPT-31787 Level 3 Est. Patient 14:08:24 CDT Harinder Hernandez [facility] CPT-33752 Level 3 Est. Patient 10:07:15 CDT Harinder Hernandez [facility] CPT-32327 Level 3 Est. Patient 10:06:59 CDT Harinder Hernandez [facility] CPT-61334 Level 3 Est. Patient 15:53:29 CDT Jae Morgan MD [facility] CPT-14116 Level 3 Est. Patient 17:19:04 CDT Harinder Hernandez [facility] CPT-71916 Level 3 Est. Patient 11:13:01 CDT Harinder Hernandez [facility] CPT-13416 Level 3 Est. Patient 09:03:58 CDT Harinder Hernandez [facility] CPT-49839 Level 3 Est. Patient 14:46:45 EXHIBIT DESIGNER Harinder Hernandez [facility] CPT-06558 Level 3 Est. Patient 09:35:49 EXHIBIT DESIGNER Harinder Hernandez [facility] CPT-06678 Level 3 Est. Patient 09:29:37 EXHIBIT DESIGNER Harinder Hernandez [facility] CPT-58917 Level 3 Est. Patient 15:51:07 CDT Harinder Hernandez [facility] CPT-72247 Level 3 Est. Patient 18:13:13 CDT Harinder Cr [facility] CPT-82680 Level 3 Est. Patient 10:44:19 CDT Harinder Hernandez [facility] CPT-24487 Level 4 Est. Patient 10:07:19 EXHIBIT DESIGNER Harinder Hernandez [facility] CPT-20915 Level 3 Est. Patient 15:59:32 EXHIBIT DESIGNER Harinder Hernandez [facility] Procedures Code Procedure Name Date Entry Date Standard Description CPT-45497 First Vx - Ix admin for Medicare patients 17:35:15 CDT CPT-39608 Fluzone Preservative Free Intramuscular Suspension 17:35 :15 CDT CPT-33538 Microalbumin - LAB USE ONLY 11:52:05 CDT CPT-TCMM Transitional Care Mgmt-Moderate 11:33:57 CDT CPT-84065 No Charge Offi Visit 14:11:29 CDT CPT-74262 Magnesium - LAB USE ONLY 10:45:44 CDT CPT-88934 Lipid - LAB USE ONLY 10:45:44 CDT CPT-85175 CBC - LAB USE ONLY 10:45:44 CDT CPT-80489 Venipuncture Draw Fee 10:45:43 CDT CPT-45713 Venipuncture Draw Fee 18:21:27 CDT CPT-JTINJ Asp/Joint Injection 18:38:04 CDT CPT-59854 Immunization Each Additional Inj 17:38:04 CDT CPT-77814 Immunization Single Admin 17:38:04 CDT CPT-89807 Prevnar 13 17:38:04 CDT CPT-10635 Fluzone Quadrivalent preservative free (>=3yrs.) 17:38: 04 CDT CPT-04600 No Charge Offi Visit 11:14:03 CDT CPT-75428 Chest 2V Frontal and Lat 14:00:18 CDT CPT-OV Office Visit 16:10:28 CDT CPT-JTINJ Asp/Joint Injection 09:03:57 CDT CPT-Cryo Cryotherapy 09:35:49 EXHIBIT DESIGNER CPT-JTINJ Asp/Joint Injection 09:34:45 EXHIBIT DESIGNER CPT-J2930 Solu Medrol 125 mg (Methyl Prednisolone Sodium Succinate) 20:37:27 CDT CPT-31697 Abx/Therapy Injection 20:37:27 CDT CPT-38472 Port a cath flush 08:15:51 CDT CPT-22862 Port a cath flush 09:54:16 CDT CPT-50320 Port a cath flush 09:38:02 CDT CPT-45898 Port a cath flush 11:00:27 EXHIBIT DESIGNER
--- OUTSIDE RECORDS SUMMARY | 2017-12-29 00:05 | XMS REPORT | Clinical Summary ---
Author Author Admin, QIE Organization [facility] [employer] Address Unknown Phone Unavailable Allergies, Adverse Reactions, [...] Greater trochanteric bursitis, left 726.5 Resolved Harinder Hernandze DO Enthesopathy of hip region Dysphagia 787.20 Active Harinder Hernandez DO Dysphagia , unspecified Hx of ischemic cerebrovascular accident with residual deficit 438.9 Active Harinder Hernandez DO Unspecified late effects of cerebrovascular disease Venous insufficiency 459.81 Active Nettie King MAHENDRA Venous (peripheral) insufficiency, unspecified Greater trochanteric bursitis, left 726.5 Active Harinder Hernandez DO Enthesopathy of hip region Diarrhea, acute 787.91 Active Harinder rC David DO Diarrhea URI 465.9 Active Harinder [...] tab po q day therafter. POTASSIUM CHLORIDE 14843990231 Active Kortney Mccain Active POTASSIUM CHLORIDE CR 10 MEQ CPCR 1 capsule BID POTASSIUM CHLORIDE 56196496484 No Longer Active Kortney Mccain Active LASIX 20 MG TAB 1 tablet by mouth every morning FUROSEMIDE 46528962164 No Longer Active Kortney Mccain Active SPIRONOLACTONE 25 MG TAB 1 tablet by mouth daily SPIRONOLACTONE 37210302026 Active Ciera Pimentel Active FLUOXETINE HCL 10 MG ORAL CAPS 1 po qd for depression/anxiety FLUOXETINE HCL 42259244160 Active Harinder Hernandez DO Active VOLTAREN 1 % GEL apply q 6-8 hour to left arm as needed for pain DICLOFENAC SODIUM 93155486641 Active Harinder Hernandez DO Active ALBUTEROL SULFATE 0.083 % NEBU SOLN 1 vial neb q 4hrs for severe asthma. 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 FLUTICASONE PROPIONATE HFA 83282081605 Active Harinder Hernandez DO Active EPIPEN 2-BRUNA 0.3 MG/0.3ML INJ SOAJ 1 INJ NEEDED EPINEPHRINE 74405958132 Active Harinder Hernandez DO Active PREDNISONE 20 MG TAB 1 tab twice daily for 3 day, then one daily for three days PREDNISONE 22140093249 No Longer Active Harinder Hernandez DO Active PREDNISONE 20 MG TAB 1 tablet twice daily for 2 days, then 1 tablet once daily for 2 days PREDNISONE 57603325450 No Longer Active Harinder Hernandez DO Active ASMANEX 120 METERED DOSES 220 MCG/INH INH AEPB 2 puffs orally twice daily MOMETASONE FUROATE 79958514635 Active Jeri Sosa LPN Active TOPIRAMATE 25 MG TABS 1 tab po BID TOPIRAMATE 59241596680 No Longer Active Nettie Newberry APRN Active AMLODIPINE BESYLATE 5 MG ORAL TABS Take 1 tab po daily AMLODIPINE BESYLATE 10035379262 No Longer Active Nettie Newberry APRN Active MECLIZINE HCL 25 MG TAB 1 tablet three times daily for 3 days, then 1/2 tab three times daily for 3 days. MECLIZINE HCL 82529258951 No Longer Active Nettie Newberry MAHENDRA Active AMITRIPTYLINE HCL 25 MG ORAL TABS 1 q hs prn AMITRIPTYLINE HCL 92733894271 No Longer Active Nettie Newberry MAHENDRA Active DILAUDID 2 MG ORAL TABS Take 1/2 tab po every 4 hours as needed for pain 2014 HYDROMORPHONE HCL 77819118037 No Longer Active Nettieog Newberry APRN Active CLOPIDOGREL BISULFATE 75 MG ORAL TABS 1 tab by mouth once daily CLOPIDOGREL BISULFATE 75124442078 Active Harinder Hernandez DO Active ATORVASTATIN CALCIUM 10 MG ORAL TABS 1 at bedtime ATORVASTATIN CALCIUM 10784431607 Active Tawnya Pardo MA Active LOVASTATIN 40 MG ORAL TABS Take 1 tab po every hs LOVASTATIN 86153762138 No Longer Active Harinder Hernandez DO Active PREDNISONE 20 MG TAB 2 tabs daily for 4 days, 1 tab daily for 4 days, 1/2 tab daily for 4 days PREDNISONE 78205066758 No Longer Active Harinder Hernandez DO Active LEVAQUIN 500 MG ORAL TABS Take 1 tab po daily x 8 days LEVOFLOXACIN 30216105045 No Longer Active Harinedr Hernandez DO Active VENTOLIN HFA 108 (90 BASE) MCG/ACT AERS 2 -4 puffs four times a day PRN 2013 ALBUTEROL SULFATE 95230154729 No Longer Active Jeri Sosa LPN Active ACEBUTOLOL HCL 200 MG CAPS 1 cap in the morning and 2 caps in the evening ACEBUTOLOL HCL 35068491845 No Longer Active Harinder Hernandez DO Active CEFDINIR 300 MG ORAL CAPS take 1 cap po bid x 10 days CEFDINIR 79525093392 No Longer Active Harinder Hernandez DO Active LOVASTATIN 40 MG TABS 1 pill by mouth nightly for cholesterol LOVASTATIN 95721740622 No Longer Active Nettie Rohith MAHENDRA Active NITROSTAT 0.4 MG SUBL 1 tab under tongueas needed for chest pain ( may take 3 total, 5 min apart, then call 911) NITROGLYCERIN 67994084905 No Longer Active Nettie Newberry MAHENDRA Active POTASSIUM CHLORIDE CR 10 MEQ CPCR 1 capsule by mouth daily 02/14 POTASSIUM CHLORIDE 12895849497 [facility] Active TESSALON PERLES 100 MG CAP 1 to 2 tablets by mouth 3 times daily as needed for cough BENZONATATE 14770198195 No Longer Active Nettie Newberry MAHENDRA Active THEOPHYLLINE ER 200 MG ORAL [id number] Take 1 tab every 12 hours THEOPHYLLINE 81161778739 Active Harinder Hrenandez DO Active PREDNISONE 20 MG TAB 2 po qd x 5 days PREDNISONE 13114999244 No Longer Active Jae Morgan MD Active AZITHROMYCIN 250 MG TABS 2 po qd x 1 day, then 1 po qd x 4 days AZITHROMYCIN 48823026432 No Longer Active Jae Morgan MD Active PREDNISONE 20 MG TAB 1 tab twice daily for 3 day, then one daily for three days PREDNISONE 66745808314 No Longer Active Jae Morgan MD Active SINGULAIR 10 MG TABS 1 pill by mouth every evening for breathing. MONTELUKAST SODIUM 99542829726 Active Tawnya Pardo MA Active TYLENOL 325 MG TAB 3 by mouth q4h as needed ACETAMINOPHEN 21228513169 Active Harinder Hernandez DO Active POTASSIUM CHLORIDE ER 10 MEQ CR-TABS take 1 tab po daily POTASSIUM CHLORIDE 27497168352 No Longer Active Harinder Hernandez DO Active PREDNISONE 20 MG TAB 1 TID x 2 days, then 1 BID x 3 days, then 1 Daily x 3 days, then stop PREDNISONE 58449145260 No Longer Active John Montemayor APRN Active LEVAQUIN 500 MG TAB 1 tablet by mouth daily LEVOFLOXACIN 18776734136 No Longer Active John Montemayor TRAIN CONTROL TECHNICIAN Active NEURONTIN 300 MG CAP 1 cap by mouth three times daily for restless leg 06/22 GABAPENTIN 61781535597 No Longer Active Harinder Hernandez DO Active BENZONATATE 100 MG CAPS 1 cap po TID PRN BENZONATATE 81128628733 No Longer Active Harinder Hernandez DO Active MONTELUKAST SODIUM 10 MG TABS 1 tab po in the evening MONTELUKAST SODIUM 79312516899 No Longer Active Harinder Hernandez DO Active MUPIROCIN 2 % OINT apply to affected area BID x 14 days MUPIROCIN 13341672975 No Longer Active Harinder Hernandez DO Active TYLENOL EXTRA STRENGTH 500 MG TABS as needed ACETAMINOPHEN 35638642879 No Longer Active Harinder Hernandez DO Active PREDNISONE 10 MG TABS 1 tab po daily PREDNISONE 97075515302 No Longer Active Harinder Hernandez DO Active PREDNISONE 20 MG TAB 2 tabs daily for 4 days, 1 tab daily for 4 days, 1/2 tab daily for 4 days PREDNISONE 56072418058 No Longer Active Harinder Hernandez DO Active AZITHROMYCIN 250 MG TABS 2 po qd x 1 day, then 1 po qd x 4 days AZITHROMYCIN 79427582851 No Longer Active Harinder Hernandez DO Active PREDNISONE 20 MG TAB 3 tabs today, then 1 tab twice daily for 3 day, then one daily for three days PREDNISONE 91421478580 No Longer Active Harinder Hernandez DO Active NIFEDIAC CC 30 MG [id number] 1 tablet daily for raynaud's syndrome NIFEDIPINE 71702787592 No Longer Active Tawnya Pardo MA Active AMBIEN 10 MG TAB 1/2 tab by mouth at bedtime as needed for sleep ZOLPIDEM TARTRATE 59911385797 Active Harinder Hernandez DO Active CLONAZEPAM 1 MG TABS 1 tablet at bedtime for insomnia and restless legs 09/14 CLONAZEPAM 99245269609 Active Harinder Hernandez DO Active CLONAZEPAM 0.5 MG TABS 1 tab po daily CLONAZEPAM 58858621667 No Longer Active Harinder Hernandez DO Active PREDNISONE 10 MG TAB 1 tablet daily for COPD PREDNISONE 71433004197 Active Harinder Hernandez DO Active PROAIR HFA 108 (90 BASE) MCG/ACT AERS 2 puffs four times a day as needed 2012 ALBUTEROL SULFATE 47344996650 Active Harinder Hernandez DO Active FLOVENT HFA 110 MCG/ACT AERO 2 puffs inhaled b.i.d. FLUTICASONE PROPIONATE HFA 18138283483 Active Kortney Mccain Active ACIPHEX 20 MG TBEC 1 tab po daily RABEPRAZOLE SODIUM 24895785608 Active Kaylah Newberry Active CLONAZEPAM 0.5 MG TABS 1 tab po daily CLONAZEPAM 0.5 MG TABS 188564 CLONAZEPAM Inactive PREDNISONE 20 MG TAB 3 tabs today, then 1 tab twice daily for 3 day, then one daily for three days PREDNISONE 20 MG TAB 525900 PREDNISONE Inactive PREDNISONE 20 MG TAB 2 tabs daily for 4 days, 1 tab daily for 4 days, 1/2 tab daily for 4 days PREDNISONE 20 MG TAB 502574 PREDNISONE Inactive PREDNISONE 10 MG TABS 1 tab po daily PREDNISONE 10 MG TABS 443066 PREDNISONE Inactive TYLENOL EXTRA STRENGTH 500 MG TABS as needed TYLENOL EXTRA STRENGTH 500 MG TABS ACETAMINOPHEN Inactive MUPIROCIN 2 % OINT apply to affected area BID x 14 days MUPIROCIN 2 % OINT 153412 MUPIROCIN Inactive MONTELUKAST SODIUM 10 MG TABS 1 tab po in the evening MONTELUKAST SODIUM 10 MG TABS 20010818 MONTELUKAST SODIUM Inactive BENZONATATE 100 MG CAPS 1 cap po TID PRN BENZONATATE 100 MG CAPS 329266 BENZONATATE Inactive NEURONTIN 300 MG CAP 1 cap by mouth three times daily for restless leg 06/22 NEURONTIN 300 MG CAP 403987 GABAPENTIN Inactive LEVAQUIN 500 MG TAB 1 tablet by mouth daily LEVAQUIN 500 MG TAB 593532 LEVOFLOXACIN Inactive PREDNISONE 20 MG TAB 1 TID x 2 days, then 1 BID x 3 days, then 1 Daily x 3 days, then stop PREDNISONE 20 MG TAB 443569 PREDNISONE Inactive POTASSIUM CHLORIDE ER 10 MEQ CR-TABS take 1 tab po daily POTASSIUM CHLORIDE ER 10 MEQ CR-TABS POTASSIUM CHLORIDE Inactive PREDNISONE 20 MG TAB 1 tab twice daily for 3 day, then one daily for three days PREDNISONE 20 MG TAB 280539 PREDNISONE Inactive TESSALON PERLES 100 MG CAP 1 to 2 tablets by mouth 3 times daily as needed for cough TESSALON PERLES 100 MG CAP 577907 BENZONATATE Inactive POTASSIUM CHLORIDE CR 10 MEQ CPCR 1 capsule by mouth daily 02/14 POTASSIUM CHLORIDE CR 10 MEQ CPCR POTASSIUM CHLORIDE Inactive NITROSTAT 0.4 MG SUBL 1 tab under tongueas needed for chest pain ( may take 3 total, 5 min apart, then call 911) NITROSTAT 0.4 MG SUBL 139541 NITROGLYCERIN Inactive LOVASTATIN 40 MG TABS 1 pill by mouth nightly for cholesterol LOVASTATIN 40 MG TABS 184593 LOVASTATIN Inactive CEFDINIR 300 MG ORAL CAPS take 1 cap po bid x 10 days CEFDINIR 300 MG ORAL CAPS 668745 CEFDINIR Inactive ACEBUTOLOL HCL 200 MG CAPS 1 cap in the morning and 2 caps in the evening ACEBUTOLOL HCL 200 MG CAPS 710867 ACEBUTOLOL HCL Inactive VENTOLIN HFA 108 (90 BASE) MCG/ACT AERS 2 -4 puffs four times a day PRN 2013 VENTOLIN HFA 108 (90 BASE) MCG/ACT AERS ALBUTEROL SULFATE Inactive LEVAQUIN 500 MG ORAL TABS Take 1 tab po daily x 8 days LEVAQUIN 500 MG ORAL TABS 339727 LEVOFLOXACIN Inactive PREDNISONE 20 MG TAB 2 tabs daily for 4 days, 1 tab daily for 4 days, 1/2 tab daily for 4 days PREDNISONE 20 MG TAB 548634 PREDNISONE Inactive LOVASTATIN 40 MG ORAL TABS Take 1 tab po every hs LOVASTATIN 40 MG ORAL TABS 787846 LOVASTATIN Inactive DILAUDID 2 MG ORAL TABS Take 1/2 tab po every 4 hours as needed for pain 2014 DILAUDID 2 MG ORAL TABS 114421 HYDROMORPHONE HCL Inactive AMITRIPTYLINE HCL 25 MG ORAL TABS 1 q hs prn AMITRIPTYLINE HCL 25 MG ORAL TABS 497083 AMITRIPTYLINE HCL Inactive MECLIZINE HCL 25 MG TAB 1 tablet three times daily for 3 days, then 1/2 tab three times daily for 3 days. MECLIZINE HCL 25 MG TAB 768731 MECLIZINE HCL Inactive AMLODIPINE BESYLATE 5 MG ORAL TABS Take 1 tab po daily AMLODIPINE BESYLATE 5 MG ORAL TABS 419044 AMLODIPINE BESYLATE Inactive TOPIRAMATE 25 MG TABS 1 tab po BID TOPIRAMATE 25 MG TABS 548560 TOPIRAMATE Inactive PREDNISONE 20 MG TAB 1 tablet twice daily for 2 days, then 1 tablet once daily for 2 days PREDNISONE 20 MG TAB 754640 PREDNISONE Inactive PREDNISONE 20 MG TAB 1 tab twice daily for 3 day, then one daily for three days PREDNISONE 20 MG TAB 875753 PREDNISONE Inactive NIFEDIPINE ER 30 MG ORAL [id number] 1 daily NIFEDIPINE ER 30 MG ORAL [id number] NIFEDIPINE Inactive AMLODIPINE BESYLATE 5 MG TABS 1 tablet by mouth daily AMLODIPINE BESYLATE 5 MG TABS 495754 AMLODIPINE BESYLATE Inactive LASIX 20 MG TAB 1 tablet by mouth every morning LASIX 20 MG TAB 802441 FUROSEMIDE Inactive POTASSIUM CHLORIDE CR 10 MEQ CPCR 1 capsule BID POTASSIUM CHLORIDE CR 10 MEQ CPCR POTASSIUM CHLORIDE Inactive AZITHROMYCIN 250 MG TABS 2 po qd x 1 day, then 1 po qd x 4 days AZITHROMYCIN 250 MG TABS 3253302 AZITHROMYCIN Inactive AZITHROMYCIN 250 MG TABS 2 po qd x 1 day, then 1 po qd x 4 days AZITHROMYCIN 250 MG TABS 3291800 AZITHROMYCIN Inactive PREDNISONE 20 MG TAB 2 po qd x 5 days PREDNISONE 20 MG TAB 108652 PREDNISONE Inactive Vital Signs Date Name Value [...] temperature weight E&M 125.5 [lb_av] Weight Measured Diagnostic Results Date Name Value Unit Range Description Lab Report: Basic Metabolic Panel - Chemistry sodium, serum 137 mmol/L 339-708 9818/01/03 potassium, serum 3.4 mmol/L 3.5-5.2 chloride, serum 102 mmol/L 98-107 carbon dioxide, venous blood 29.2 mmol/L 21.0-32.0 blood glucose 87 mg/dL 65-110 calcium, serum 8.5 mg/dL 8.5-10.1 urea nitrogen, blood 8 mg/dL 7-18 creatinine, serum 0.82 mg/dL 0.55-1.30 sodium, serum 140 mmol/L 220-587 3383/07/13 potassium, serum 3.2 mmol/L 3.5-5.2 chloride, serum 103 mmol/L 98-107 carbon dioxide, venous blood 26.9 mmol/L 21.0-32.0 blood glucose 93 mg/dL 65-110 calcium, serum 9.2 mg/dL 8.5-10.1 urea nitrogen, blood 13 mg/dL 7-18 creatinine, serum 0.84 mg/dL 0.60-1.30 sodium, serum 140 mmol/L 830-121 6471/08/21 potassium, serum 3.8 mmol/L 3.5-5.2 chloride, serum 105 mmol/L 98-107 carbon dioxide, venous blood 26.9 mmol/L 21.0-32.0 blood glucose 85 mg/dL 65-110 calcium, serum 8.8 mg/dL 8.5-10.1 urea nitrogen, blood 11 mg/dL 7-18 creatinine, serum 0.95 mg/dL 0.60-1.30 Lab Report: CBC, UADIP W/MICRO, [...] ... - Chemistry sodium, serum 141 mmol/L 312-743 9548/08/07 carbon dioxide, venous blood 34.0 mmol/L 21.0-32.0 [...] 0-19 Encounters Code Encounter Date Provider Facility CPT-78171 Level 4 Est. Patient 14:45:25 CDT Harinder Cr [facility] CPT-03513 Level 4 Est. Patient 09:15:13 CDT Harinder Cr [facility] CPT-92058 Level 3 Est. Patient 11:51:58 CDT Harinder Cr [facility] CPT-79755 Level 3 Est. Patient 11:30:05 CDT Harinder Cr [facility] CPT-20563 Level 4 Est. Patient 10:19:23 CDT Harinder Cr [facility] CPT-83178 Level 3 Est. Patient 09:58:58 CDT Harinder Cr [facility] CPT-37826 Level 3 Est. Patient 12:37:21 CDT Harinder Cr [facility] CPT-05389 Level 3 Est. Patient 18:37:17 CDT Harinder Cr [facility] CPT-66583 Level 4 Est. Patient 11:15:54 CDT Nettie Rohith [facility] CPT-21221 Level 3 Est. Patient 16:42:24 CDT Harinder Cr [facility] CPT-25502 Level 3 Est. Patient 15:03:36 CDT Harinder Cr [facility] CPT-37372 Level 3 Est. Patient 15:03:20 CDT Harinder Cr [facility] CPT-21581 Level 3 Est. Patient 12:14:34 CDT Harinder Cr [facility] CPT-73789 Level 3 Est. Patient 13:47:15 CDT Harinder Cr [facility] CPT-09316 Level 3 Est. Patient 14:08:24 CDT Harinder Hernandez [facility] CPT-15751 Level 3 Est. Patient 10:07:15 CDT Harinder Hernandez [facility] CPT-44329 Level 3 Est. Patient 10:06:59 CDT Harinder Hernandez [facility] CPT-29589 Level 3 Est. Patient 15:53:29 CDT Jae Morgan MD [facility] CPT-71008 Level 3 Est. Patient 17:19:04 CDT Harinder Hernandez [facility] CPT-29164 Level 3 Est. Patient 11:13:01 CDT Harinder Hernandez [facility] CPT-84715 Level 3 Est. Patient 09:03:58 CDT [facility] CPT-20874 Level 3 Est. Patient 14:46:45 ROLL GRINDER OPERATOR Harinder Hernandez [facility] CPT-28037 Level 3 Est. Patient 09:35:49 ROLL GRINDER OPERATOR [facility] CPT-03646 Level 3 Est. Patient 09:29:37 ROLL GRINDER OPERATOR [facility] CPT-35849 Level 3 Est. Patient 15:51:07 CDT Harinder Hernandez [facility] CPT-85631 Level 3 Est. Patient 18:13:13 CDT Harinder Hernandez [facility] CPT-43613 Level 3 Est. Patient 10:44:19 CDT Harinder Cr [facility] CPT-79596 Level 4 Est. Patient 10:07:19 ROLL GRINDER OPERATOR [facility] CPT-30165 Level 3 Est. Patient 15:59:32 ROLL GRINDER OPERATOR Harinder Cr [facility] Procedures Code Procedure Name Date Entry Date Standard Description CPT-74186 Abd compl w upright - XRAY USE ONLY 14:48:09 CDT 02/18 CPT-05804 Port a cath flush 13:46:05 CDT CPT-63890 Hip, complete, 2-3 views - XRAY USE ONLY 10:28:40 CDT CPT-88475 BMP - LAB USE ONLY 16:45:09 ROLL GRINDER OPERATOR CPT-68942 Port a cath flush 12:00:13 ROLL GRINDER OPERATOR CPT-TCMM Transitional Care Mgmt-Moderate 11:20:16 ROLL GRINDER OPERATOR CPT-20611 First Vx - Ix admin for Medicare patients 17:35:15 CDT CPT-25522 Fluzone Preservative Free Intramuscular Suspension 17:35 :15 CDT CPT-95946 Microalbumin - LAB USE ONLY 11:52:05 CDT CPT-TCMM Transitional Care Mgmt-Moderate 11:33:57 CDT CPT-12377 No Charge Offi Visit 14:11:29 CDT CPT-94051 Magnesium - LAB USE ONLY 10:45:44 CDT CPT-47248 Lipid - LAB USE ONLY 10:45:44 CDT CPT-43725 CBC - LAB USE ONLY 10:45:44 CDT CPT-84648 Venipuncture Draw Fee 10:45:43 CDT CPT-41751 Venipuncture Draw Fee 18:21:27 CDT CPT-JTINJ Asp/Joint Injection 18:38:04 CDT CPT-65969 Immunization Each Additional Inj 17:38:04 CDT CPT-76962 Immunization Single Admin 17:38:04 CDT CPT-86036 Prevnar 13 17:38:04 CDT CPT-33611 Fluzone Quadrivalent preservative free (>=3yrs.) 17:38: 04 CDT CPT-23390 No Charge Offi Visit 11:14:03 CDT CPT-98082 Chest 2V Frontal and Lat 14:00:18 CDT CPT-OV Office Visit 16:10:28 CDT CPT-JTINJ Asp/Joint Injection 09:03:57 CDT CPT-Cryo Cryotherapy 09:35:49 ROLL GRINDER OPERATOR CPT-JTINJ Asp/Joint Injection 09:34:45 ROLL GRINDER OPERATOR CPT-J2930 Solu Medrol 125 mg (Methyl Prednisolone Sodium Succinate) 20:37:27 CDT CPT-97375 Abx/Therapy Injection 20:37:27 CDT CPT-17255 Port a cath flush 08:15:51 CDT CPT-80782 Port a cath flush 09:54:16 CDT CPT-24327 Port a cath flush 09:38:02 CDT CPT-48288 Port a cath flush 11:00:27 ROLL GRINDER OPERATOR
--- OUTSIDE RECORDS SUMMARY | 2017-12-29 00:06 | XMS REPORT | Clinical Summary ---
Author Author Admin, QIE Organization [facility] [place] Address Unknown Phone Unavailable Allergies, Adverse Reactions, [...] Hip pain, left 719.45 Active Harinder Shaye David DO Pain in joint involving pelvic region and thigh Raynaud's syndrome 443.0 Active Harinder Shaye David DO Raynaud's syndrome Edema leg 782.3 Active Harinder Shaye David DO Edema Breast mass, right ICD-611.72 Inactive Harinder Shaye David DO Encounter for fitting and adjustment of vascular catheter ICD-V58.81 Inactive Harinder Shaye David DO Back pain, lumbar ICD-724.2 Inactive Harinder W David DO Insomnia ICD-780.52 Inactive Harinder Cr David DO Sacroiliitis, right ICD-720.2 Inactive Harinder Cr David DO Biceps tendinitis, left ICD-726.12 Inactive Harinder Cr David DO Diarrhea ICD-787.91 Inactive Jae Morgan MD Benign [...] and vomiting ICD-787.01 Inactive Jae Morgan MD Medication List Medication Instructions Start Date Stop Date Generic Name NDC Status Provider Patient Instruction LASIX 20 MG TAB 1 tablet by mouth every morning FUROSEMIDE 80513778219 Active Kortney Mccain Active POTASSIUM CHLORIDE 20 MEQ ORAL PACK 1 tab po BID POTASSIUM CHLORIDE 46794910926 Active Kortney Mccain Active ALBUTEROL SULFATE 0.083 % NEBU SOLN 1 vial neb q 4hrs for severe asthma. imperative to have this agent ALBUTEROL SULFATE 58032773089 Active Ciera Pimentel Active NIFEDIAC CC 30 MG [id number] 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 NIFEDIPINE 35433935542 Active Harinder Hernandez DO Active AMLODIPINE BESYLATE 5 MG TABS 1 tablet by mouth daily AMLODIPINE BESYLATE 52721258685 No Longer Active Harinder Hernandez DO Active TOPAMAX 25 MG ORAL TABS 1 tab po BID TOPIRAMATE 07570713994 Active Kortney Mccain Active FLUTICASONE PROPIONATE 50 MCG/ACT SUSP 2 sprays per nostril daily PRN Allergies FLUTICASONE PROPIONATE 50163115874 Active Kortney Mccain Active NIFEDIPINE ER 30 MG ORAL [id number] 1 daily NIFEDIPINE 19475167697 No Longer Active Harinder Hernandez DO Active FLOVENT HFA 110 MCG/ACT AERO 2 puffs inhaled b.i.d. FLUTICASONE PROPIONATE HFA 96894104768 Active Harinder Hernandez DO Active POTASSIUM CHLORIDE CR 10 MEQ CPCR 1 capsule by mouth daily POTASSIUM CHLORIDE 34212917337 Active Harinder Hernandez DO Active EPIPEN 2-BRUNA 0.3 MG/0.3ML INJ SOAJ 1 INJ NEEDED EPINEPHRINE 50072750450 Active Harinder Hernandez DO Active PREDNISONE 20 MG TAB 1 tab twice daily for 3 day, then one daily for three days PREDNISONE 82755955107 No Longer Active Harinder Hernandez DO Active PREDNISONE 20 MG TAB 1 tablet twice daily for 2 days, then 1 tablet once daily for 2 days PREDNISONE 60897118971 No Longer Active Harinder Hernandez DO Active ASMANEX 120 METERED DOSES 220 MCG/INH INH AEPB 2 puffs orally twice daily MOMETASONE FUROATE 77795253619 Active Jeri Sosa RPT,RMA Active TOPIRAMATE 25 MG TABS 1 tab po BID TOPIRAMATE 85805897379 No Longer Active Nettie Newberry APRN Active AMLODIPINE BESYLATE 5 MG ORAL TABS Take 1 tab po daily AMLODIPINE BESYLATE 24478131276 No Longer Active Nettie Newberry APRN Active MECLIZINE HCL 25 MG TAB 1 tablet three times daily for 3 days, then 1/2 tab three times daily for 3 days. MECLIZINE HCL 63604803510 No Longer Active Nettie Newberry APRN Active AMITRIPTYLINE HCL 25 MG ORAL TABS 1 q hs prn AMITRIPTYLINE HCL 95936255942 No Longer Active Nettie Newberry APRN Active DILAUDID 2 MG ORAL TABS Take 1/2 tab po every 4 hours as needed for pain 2014 HYDROMORPHONE HCL 45486302420 No Longer Active Nettie Newberry APRN Active CLOPIDOGREL BISULFATE 75 MG ORAL TABS 1 tab by mouth once daily CLOPIDOGREL BISULFATE 22211130038 Active Harinder Hernandez DO Active ATORVASTATIN CALCIUM 10 MG ORAL TABS 1 at bedtime ATORVASTATIN CALCIUM 39221585097 Active Tawnya Pardo MA Active LOVASTATIN 40 MG ORAL TABS Take 1 tab po every hs LOVASTATIN 09650124678 No Longer Active Harinder Hernandez DO Active PREDNISONE 20 MG TAB 2 tabs daily for 4 days, 1 tab daily for 4 days, 1/2 tab daily for 4 days PREDNISONE 33470136073 No Longer Active Harinder Hernandez DO Active LEVAQUIN 500 MG ORAL TABS Take 1 tab po daily x 8 days LEVOFLOXACIN 90380407202 No Longer Active Harinder Hernandez DO Active VENTOLIN HFA 108 (90 BASE) MCG/ACT AERS 2 -4 puffs four times a day PRN 2013 ALBUTEROL SULFATE 31575418146 No Longer Active Jeri Sosa RPT,RMA Active ACEBUTOLOL HCL 200 MG CAPS 1 cap in the morning and 2 caps in the evening ACEBUTOLOL HCL 38226468510 No Longer Active Harinder Hernandez DO Active CEFDINIR 300 MG ORAL CAPS take 1 cap po bid x 10 days CEFDINIR 54555125352 No Longer Active Harinder Hernandez DO Active LOVASTATIN 40 MG TABS 1 pill by mouth nightly for cholesterol LOVASTATIN 34996844904 No Longer Active Nettie Newberry APRN Active NITROSTAT 0.4 MG SUBL 1 tab under tongueas needed for chest pain ( may take 3 total, 5 min apart, then call 911) NITROGLYCERIN 45852506310 No Longer Active Nettie Newberry APRN Active POTASSIUM CHLORIDE CR 10 MEQ CPCR 1 capsule by mouth daily 02/14 POTASSIUM CHLORIDE 93517006789 No Longer Active Nettie Newberry APRN Active TESSALON PERLES 100 MG CAP 1 to 2 tablets by mouth 3 times daily as needed for cough BENZONATATE 23193541462 No Longer Active Nettie Newberry APRN Active THEOPHYLLINE ER 200 MG ORAL [id number] Take 1 tab every 12 hours THEOPHYLLINE 28098048439 Active Kortney Mccain Active PREDNISONE 20 MG TAB 2 po qd x 5 days PREDNISONE 46743936290 No Longer Active Jae Morgan MD Active AZITHROMYCIN 250 MG TABS 2 po qd x 1 day, then 1 po qd x 4 days AZITHROMYCIN 09552600231 No Longer Active Jae Morgan MD Active PREDNISONE 20 MG TAB 1 tab twice daily for 3 day, then one daily for three days PREDNISONE 94963383681 No Longer Active Jae Morgan MD Active SINGULAIR 10 MG TABS 1 pill by mouth every evening for breathing. MONTELUKAST SODIUM 23688319090 Active Tawnya Pardo MA Active TYLENOL 325 MG TAB 3 by mouth q4h as needed ACETAMINOPHEN 13943448423 Active Harinder Hernandez DO Active POTASSIUM CHLORIDE ER 10 MEQ CR-TABS take 1 tab po daily POTASSIUM CHLORIDE 43068079906 No Longer Active Harinder Hernandez DO Active PREDNISONE 20 MG TAB 1 TID x 2 days, then 1 BID x 3 days, then 1 Daily x 3 days, then stop PREDNISONE 56603502614 No Longer Active Jillina Frazell DRILL PRESSER Active LEVAQUIN 500 MG TAB 1 tablet by mouth daily LEVOFLOXACIN 51535367660 No Longer Active Jillina Frazell DRILL PRESSER Active NEURONTIN 300 MG CAP 1 cap by mouth three times daily for restless leg 06/22 GABAPENTIN 36195618887 No Longer Active Harinder Hernandez DO Active BENZONATATE 100 MG CAPS 1 cap po TID PRN BENZONATATE 41706629414 No Longer Active Harinder Hernandez DO Active MONTELUKAST SODIUM 10 MG TABS 1 tab po in the evening MONTELUKAST SODIUM 82318378245 No Longer Active Harinder Hernandez DO Active MUPIROCIN 2 % OINT apply to affected area BID x 14 days MUPIROCIN 48456861214 No Longer Active Harinder Hernandez DO Active TYLENOL EXTRA STRENGTH 500 MG TABS as needed ACETAMINOPHEN 51838358574 No Longer Active Harinder W David DO Active PREDNISONE 10 MG TABS 1 tab po daily PREDNISONE 44009816319 No Longer Active Harinder Hernandez DO Active PREDNISONE 20 MG TAB 2 tabs daily for 4 days, 1 tab daily for 4 days, 1/2 tab daily for 4 days PREDNISONE 49216710670 No Longer Active Harinder Hernandez DO Active AZITHROMYCIN 250 MG TABS 2 po qd x 1 day, then 1 po qd x 4 days AZITHROMYCIN 01979732519 No Longer Active Harinder Hernandez DO Active PREDNISONE 20 MG TAB 3 tabs today, then 1 tab twice daily for 3 day, then one daily for three days PREDNISONE 53747213750 No Longer Active Harinder Hernandez DO Active NIFEDIAC CC 30 MG [id number] 1 tablet daily for raynaud's syndrome NIFEDIPINE 17502120676 No Longer Active Tawnya Pardo MA Active AMBIEN 10 MG TAB 1/2 tab by mouth at bedtime as needed for sleep ZOLPIDEM TARTRATE 02687177861 Active Ciera Pimentel Active CLONAZEPAM 1 MG TABS 1 tablet at bedtime for insomnia and restless legs 09/14 CLONAZEPAM 53333930634 Active Harinder Hernandez DO Active CLONAZEPAM 0.5 MG TABS 1 tab po daily CLONAZEPAM 77657855726 No Longer Active Harinder Hernandez DO Active PREDNISONE 10 MG TAB 1 tablet daily for COPD PREDNISONE 38324229098 Active Ciera Pimentel Active PROAIR HFA 108 (90 BASE) MCG/ACT AERS 2 puffs four times a day as needed 2012 ALBUTEROL SULFATE 36056076365 Active Harinder Hernandez DO Active FLOVENT HFA 110 MCG/ACT AERO 2 puffs inhaled b.i.d. FLUTICASONE PROPIONATE HFA 04931946247 Active Kortney Mccain Active ACIPHEX 20 MG TBEC 1 tab po daily RABEPRAZOLE SODIUM 63284618668 Active Kaylah Newberry Active CLONAZEPAM 0.5 MG TABS 1 tab po daily CLONAZEPAM 0.5 MG TABS 818044 CLONAZEPAM Inactive PREDNISONE 20 MG TAB 3 tabs today, then 1 tab twice daily for 3 day, then one daily for three days PREDNISONE 20 MG TAB 336263 PREDNISONE Inactive PREDNISONE 20 MG TAB 2 tabs daily for 4 days, 1 tab daily for 4 days, 1/2 tab daily for 4 days PREDNISONE 20 MG TAB 626136 PREDNISONE Inactive PREDNISONE 10 MG TABS 1 tab po daily PREDNISONE 10 MG TABS 643917 PREDNISONE Inactive TYLENOL EXTRA STRENGTH 500 MG TABS as needed TYLENOL EXTRA STRENGTH 500 MG TABS 428367 ACETAMINOPHEN Inactive MUPIROCIN 2 % OINT apply to affected area BID x 14 days MUPIROCIN 2 % OINT 729492 MUPIROCIN Inactive MONTELUKAST SODIUM 10 MG TABS 1 tab po in the evening MONTELUKAST SODIUM 10 MG TABS 20010818 MONTELUKAST SODIUM Inactive BENZONATATE 100 MG CAPS 1 cap po TID PRN BENZONATATE 100 MG CAPS 238104 BENZONATATE Inactive NEURONTIN 300 MG CAP 1 cap by mouth three times daily for restless leg 06/22 NEURONTIN 300 MG CAP 430210 GABAPENTIN Inactive LEVAQUIN 500 MG TAB 1 tablet by mouth daily LEVAQUIN 500 MG TAB 108387 LEVOFLOXACIN Inactive PREDNISONE 20 MG TAB 1 TID x 2 days, then 1 BID x 3 days, then 1 Daily x 3 days, then stop PREDNISONE 20 MG TAB 718238 PREDNISONE Inactive POTASSIUM CHLORIDE ER 10 MEQ CR-TABS take 1 tab po daily POTASSIUM CHLORIDE ER 10 MEQ CR-TABS POTASSIUM CHLORIDE Inactive PREDNISONE 20 MG TAB 1 tab twice daily for 3 day, then one daily for three days PREDNISONE 20 MG TAB 504991 PREDNISONE Inactive TESSALON PERLES 100 MG CAP [...] then call 911) NITROSTAT 0.4 MG SUBL 407946 NITROGLYCERIN Inactive LOVASTATIN 40 MG TABS 1 pill by mouth nightly for cholesterol LOVASTATIN 40 MG TABS 024729 LOVASTATIN Inactive CEFDINIR 300 MG ORAL CAPS take 1 cap po bid x 10 days CEFDINIR 300 MG ORAL CAPS 310869 CEFDINIR Inactive ACEBUTOLOL HCL 200 MG CAPS 1 cap in the morning and 2 caps in the evening ACEBUTOLOL HCL 200 MG CAPS 546334 ACEBUTOLOL HCL Inactive VENTOLIN HFA 108 (90 BASE) MCG/ACT AERS 2 -4 puffs four times a day PRN 2013 VENTOLIN HFA 108 (90 BASE) MCG/ACT AERS ALBUTEROL SULFATE Inactive LEVAQUIN 500 MG ORAL TABS Take 1 tab po daily x 8 days LEVAQUIN 500 MG ORAL TABS 969335 LEVOFLOXACIN Inactive PREDNISONE 20 MG TAB 2 tabs daily for 4 days, 1 tab daily for 4 days, 1/2 tab daily for 4 days PREDNISONE 20 MG TAB 259825 PREDNISONE Inactive LOVASTATIN 40 MG ORAL TABS Take 1 tab po every hs LOVASTATIN 40 MG ORAL TABS 498799 LOVASTATIN Inactive DILAUDID 2 MG ORAL TABS Take 1/2 tab po every 4 hours as needed for pain 2014 DILAUDID 2 MG ORAL TABS 475767 HYDROMORPHONE HCL Inactive AMITRIPTYLINE HCL 25 MG ORAL TABS 1 q hs prn AMITRIPTYLINE HCL 25 MG ORAL TABS 470158 AMITRIPTYLINE HCL Inactive MECLIZINE HCL 25 MG TAB 1 tablet three times daily for 3 days, then 1/2 tab three times daily for 3 days. MECLIZINE HCL 25 MG TAB 577303 MECLIZINE HCL Inactive AMLODIPINE BESYLATE 5 MG ORAL TABS Take 1 tab po daily AMLODIPINE BESYLATE 5 MG ORAL TABS 822834 AMLODIPINE BESYLATE Inactive TOPIRAMATE 25 MG TABS 1 tab po BID TOPIRAMATE 25 MG TABS 303680 TOPIRAMATE Inactive PREDNISONE 20 MG TAB 1 tablet twice daily for 2 days, then 1 tablet once daily for 2 days PREDNISONE 20 MG TAB 147865 PREDNISONE Inactive PREDNISONE 20 MG TAB 1 tab twice daily for 3 day, then one daily for three days PREDNISONE 20 MG TAB 399084 PREDNISONE Inactive NIFEDIPINE ER 30 MG ORAL [id number] 1 daily NIFEDIPINE ER 30 MG ORAL [id number] NIFEDIPINE Inactive AMLODIPINE BESYLATE 5 MG TABS 1 tablet by mouth daily AMLODIPINE BESYLATE 5 MG TABS 810275 AMLODIPINE BESYLATE Inactive AZITHROMYCIN 250 MG TABS 2 po qd x 1 day, then 1 po qd x 4 days AZITHROMYCIN 250 MG TABS 1519564 AZITHROMYCIN Inactive AZITHROMYCIN 250 MG TABS 2 po qd x 1 day, then 1 po qd x 4 days AZITHROMYCIN 250 MG TABS 6000232 AZITHROMYCIN Inactive PREDNISONE 20 MG TAB 2 po qd x 5 days PREDNISONE 20 MG TAB 099152 PREDNISONE Inactive Vital Signs Date Name Value Unit Range Description blood pressure, diastolic - 8462-4 66 mm[Hg] BP adan blood pressure, systolic - 8480-6 108 mm[Hg] BP sys height E&M - 8302-2 64 [in_us] Bdy height pulse rate E&M - 8867-4 83 /min Heart rate temperature E&M 97.9 [degF] Body temperature weight E&M - 3141-9 136 [lb_av] Weight Measured blood pressure, diastolic - 8462-4 67 mm[Hg] [...] Panel - Chemistry sodium, serum 137 mmol/L 187-628 5805/01/03 potassium, serum 3.4 mmol/L 3.5-5.2 chloride, serum [...] 0.40 mg/dL 0.00-1.00 sodium, serum 142 mmol/L 744-009 3291/08/08 LDL cholesterol, serum 96 mg/dL 0-130 HDL [...] 10.0-20.0 Encounters Code Encounter Date Provider Facility CPT-41583 Level 3 Est. Patient 11:51:58 CDT Harinder Hernandez [facility] CPT-11844 Level 3 Est. Patient 11:30:05 CDT Harinder Cr [facility] CPT-80580 Level 4 Est. Patient 10:19:23 CDT Harinder Cr [facility] CPT-72766 Level 3 Est. Patient 09:58:58 CDT Harinder Cr [facility] CPT-58380 Level 3 Est. Patient 12:37:21 CDT Harinder Cr [facility] CPT-34172 Level 3 Est. Patient 18:37:17 CDT Harinder Cr [facility] CPT-72072 Level 4 Est. Patient 11:15:54 CDT Nettie Rohith [facility] CPT-01898 Level 3 Est. Patient 16:42:24 CDT Harinder Cr [facility] CPT-56815 Level 3 Est. Patient 15:03:36 CDT Harinder Cr [facility] CPT-21978 Level 3 Est. Patient 15:03:20 CDT Harinder Cr [facility] CPT-00329 Level 3 Est. Patient 12:14:34 CDT Harinder Cr [facility] CPT-35122 Level 3 Est. Patient 13:47:15 CDT Harinder Shaye [facility] CPT-34826 Level 3 Est. Patient 14:08:24 CDT Harinder Cr [facility] CPT-68790 Level 3 Est. Patient 10:07:15 CDT Harinder Cr [facility] CPT-54373 Level 3 Est. Patient 10:06:59 CDT Harinder Cr [facility] CPT-72188 Level 3 Est. Patient 15:53:29 CDT Jae Morgan MD [facility] CPT-38464 Level 3 Est. Patient 17:19:04 CDT Harinder Hernandez [facility] CPT-12162 Level 3 Est. Patient 11:13:01 CDT Harinder Cr [facility] CPT-99223 Level 3 Est. Patient 09:03:58 CDT Harinder Cr [facility] CPT-28936 Level 3 Est. Patient 14:46:45 TUB CHUCKER Harinder Hernandez [facility] CPT-81721 Level 3 Est. Patient 09:35:49 TUB CHUCKER Harinder Hernandez [facility] CPT-34812 Level 3 Est. Patient 09:29:37 TUB CHUCKER Harinder Hernandez [facility] CPT-08991 Level 3 Est. Patient 15:51:07 CDT Harinder Hernandez [facility] CPT-59776 Level 3 Est. Patient 18:13:13 CDT Harinder Cr [facility] CPT-93218 Level 3 Est. Patient 10:44:19 CDT Harinder Cr [facility] CPT-69855 Level 4 Est. Patient 10:07:19 TUB CHUCKER Harinder Cr [facility] CPT-56116 Level 3 Est. Patient 15:59:32 TUB CHUCKER Harinder Cr [facility] Procedures Code Procedure Name Date Entry Date Standard Description CPT-93808 Hip, complete, 2-3 views - XRAY USE ONLY 10:28:40 CDT CPT-29667 BMP - LAB USE ONLY 16:45:09 TUB CHUCKER CPT-23696 Port a cath flush 12:00:13 TUB CHUCKER CPT-TCMM Transitional Care Mgmt-Moderate 11:20:16 TUB CHUCKER CPT-74175 First Vx - Ix admin for Medicare patients 17:35:15 CDT CPT-51956 Fluzone Preservative Free Intramuscular Suspension 17:35 :15 CDT CPT-86344 Microalbumin - LAB USE ONLY 11:52:05 CDT CPT-TCMM Transitional Care Mgmt-Moderate 11:33:57 CDT CPT-90660 No Charge Offi Visit 14:11:29 CDT CPT-56005 Magnesium - LAB USE ONLY 10:45:44 CDT CPT-74439 Lipid - LAB USE ONLY 10:45:44 CDT CPT-10285 CBC - LAB USE ONLY 10:45:44 CDT CPT-54697 Venipuncture Draw Fee 10:45:43 CDT CPT-26058 Venipuncture Draw Fee 18:21:27 CDT CPT-JTINJ Asp/Joint Injection 18:38:04 CDT CPT-10613 Immunization Each Additional Inj 17:38:04 CDT CPT-67434 Immunization Single Admin 17:38:04 CDT CPT-21665 Prevnar 13 17:38:04 CDT CPT-67825 Fluzone Quadrivalent preservative free (>=3yrs.) 17:38: 04 CDT CPT-01949 No Charge Offi Visit 11:14:03 CDT CPT-67352 Chest 2V Frontal and Lat 14:00:18 CDT CPT-OV Office Visit 16:10:28 CDT CPT-JTINJ Asp/Joint Injection 09:03:57 CDT CPT-Cryo Cryotherapy 09:35:49 TUB CHUCKER CPT-JTINJ Asp/Joint Injection 09:34:45 TUB CHUCKER CPT-J2930 Solu Medrol 125 mg (Methyl Prednisolone Sodium Succinate) 20:37:27 CDT CPT-95751 Abx/Therapy Injection 20:37:27 CDT CPT-45471 Port a cath flush 08:15:51 CDT CPT-09227 Port a cath flush 09:54:16 CDT CPT-16789 Port a cath flush 09:38:02 CDT CPT-32797 Port a cath flush 11:00:27 TUB CHUCKER
[2017-12-29] MEDS ORDERED: THP300TCR (00:07)
[2017-12-29] MEDS ORDERED: FLUT16SP22 (00:07)
[2017-12-29] MEDS ORDERED: FLUO10CA19 (00:07)
--- OUTSIDE RECORDS SUMMARY | 2017-12-29 00:07 | XMS REPORT | Clinical Summary ---
Author Author Admin, QIE Organization [facility] [employer] Address Unknown Phone Unavailable Allergies, Adverse Reactions, [...] tablet once daily for 2 days PREDNISONE [id number] Active Harinder Hernandez DO Active ASMANEX 120 METERED DOSES 220 MCG/INH INH AEPB 2 puffs orally twice daily MOMETASONE FUROATE 49317520677 Active Jeri Sosa RPT,RMA Active NIFEDIPINE ER 30 MG ORAL [id number] 1 daily NIFEDIPINE 09100647946 Active Tawnya Pardo MA Active TOPIRAMATE 25 MG TABS 1 tab po BID TOPIRAMATE 71989129678 No Longer Active Nettie Newberry MAHENDRA Active AMLODIPINE BESYLATE 5 MG ORAL TABS Take 1 tab po daily AMLODIPINE BESYLATE 86104804457 No Longer Active Nettie Newberry MAHENDRA Active MECLIZINE HCL 25 MG TAB 1 tablet three times daily for 3 days, then 1/2 tab three times daily for 3 days. MECLIZINE HCL 00123871330 No Longer Active Nettie Newberry PATENT EXAMINER Active AMITRIPTYLINE HCL 25 MG ORAL TABS 1 q hs prn AMITRIPTYLINE HCL 33975649054 No Longer Active Nettie Newberry MAHENDRA Active DILAUDID 2 MG ORAL TABS Take 1/2 tab po every 4 hours as needed for pain 2014 HYDROMORPHONE HCL 55721444738 No Longer Active Nettie Newberry APRN Active CLOPIDOGREL BISULFATE 75 MG ORAL TABS 1 tab by mouth once daily CLOPIDOGREL BISULFATE 02392805320 Active Jeri Sosa RPT,RMA Active ATORVASTATIN CALCIUM 10 MG ORAL TABS 1 at bedtime ATORVASTATIN CALCIUM 44668575156 Active Jeri Sosa RPT,RMA Active LOVASTATIN 40 MG ORAL TABS Take 1 tab po every hs LOVASTATIN 31943857091 No Longer Active Harinder Hernandez DO Active PREDNISONE 20 MG TAB 2 tabs daily for 4 days, 1 tab daily for 4 days, 1/2 tab daily for 4 days PREDNISONE 68133997545 No Longer Active Harinder Hernandez DO Active LEVAQUIN 500 MG ORAL TABS Take 1 tab po daily x 8 days LEVOFLOXACIN 55097243661 No Longer Active Harinder Hernandez DO Active VENTOLIN HFA 108 (90 BASE) MCG/ACT AERS 2 -4 puffs four times a day PRN 2013 ALBUTEROL SULFATE 77243044409 No Longer Active Jeri Sosa RPT,RMA Active ACEBUTOLOL HCL 200 MG CAPS 1 cap in the morning and 2 caps in the evening ACEBUTOLOL HCL 33511090710 No Longer Active Harinder Hernandez DO Active CEFDINIR 300 MG ORAL CAPS take 1 cap po bid x 10 days CEFDINIR 53387715761 No Longer Active Harinder Hernandez DO Active LOVASTATIN 40 MG TABS 1 pill by mouth nightly for cholesterol LOVASTATIN 18474027731 No Longer Active Nettie Newebrry APRN Active NITROSTAT 0.4 MG SUBL 1 tab under tongueas needed for chest pain ( may take 3 total, 5 min apart, then call 911) NITROGLYCERIN 11107655472 No Longer Active Nettie Newberry APRN Active POTASSIUM CHLORIDE CR 10 MEQ CPCR 1 capsule by mouth daily 02/14 POTASSIUM CHLORIDE 87406776087 No Longer Active Nettie Newberry APRN Active TESSALON PERLES 100 MG CAP 1 to 2 tablets by mouth 3 times daily as needed for cough BENZONATATE 26869836142 No Longer Active Nettie Newberry APRN Active THEOPHYLLINE ER 200 MG ORAL [id number] Take 1 tab every 12 hours THEOPHYLLINE 09479981121 Active Jeri Sosa RPT,RMA Active PREDNISONE 20 MG TAB 2 po qd x 5 days PREDNISONE 80509979096 No Longer Active Jae Morgan MD Active AZITHROMYCIN 250 MG TABS 2 po qd x 1 day, then 1 po qd x 4 days AZITHROMYCIN 07763145471 No Longer Active Jae Morgan MD Active PREDNISONE 20 MG TAB 1 tab twice daily for 3 day, then one daily for three days PREDNISONE 93482157595 No Longer Active Jae Morgan MD Active SINGULAIR 10 MG TABS 1 pill by mouth every evening for breathing. MONTELUKAST SODIUM 90469497354 Active Tawnya Pardo MA Active TYLENOL 325 MG TAB 3 by mouth q4h as needed ACETAMINOPHEN 70714173823 Active Harinder Hernandez DO Active POTASSIUM CHLORIDE ER 10 MEQ CR-TABS take 1 tab po daily POTASSIUM CHLORIDE 53498865581 No Longer Active Harinder Hernandez DO Active PREDNISONE 20 MG TAB 1 TID x 2 days, then 1 BID x 3 days, then 1 Daily x 3 days, then stop PREDNISONE 36887418859 No Longer Active Jillina Frazell PATENT EXAMINER Active LEVAQUIN 500 MG TAB 1 tablet by mouth daily LEVOFLOXACIN 42058898075 No Longer Active Jillina Frazell PATENT EXAMINER Active NEURONTIN 300 MG CAP 1 cap by mouth three times daily for restless leg 06/22 GABAPENTIN 12836651394 No Longer Active Harinder Hernandez DO Active BENZONATATE 100 MG CAPS 1 cap po TID PRN BENZONATATE 46445510573 No Longer Active Harinder Hernandez DO Active MONTELUKAST SODIUM 10 MG TABS 1 tab po in the evening MONTELUKAST SODIUM 05309992328 No Longer Active Harinder Hernandez DO Active MUPIROCIN 2 % OINT apply to affected area BID x 14 days MUPIROCIN 37676968812 No Longer Active Harinder Hernandez DO Active TYLENOL EXTRA STRENGTH 500 MG TABS as needed ACETAMINOPHEN 47972947450 No Longer Active Harinder Hernandez DO Active PREDNISONE 10 MG TABS 1 tab po daily PREDNISONE 85301611180 No Longer Active Harinder Hernandez DO Active PREDNISONE 20 MG TAB 2 tabs daily for 4 days, 1 tab daily for 4 days, 1/2 tab daily for 4 days PREDNISONE 40468203394 No Longer Active Harinder Hernandez DO Active AZITHROMYCIN 250 MG TABS 2 po qd x 1 day, then 1 po qd x 4 days AZITHROMYCIN 78008495864 No Longer Active Harinder Hernandez DO Active PREDNISONE 20 MG TAB 3 tabs today, then 1 tab twice daily for 3 day, then one daily for three days PREDNISONE 74308670534 No Longer Active Harinder Hernandez DO Active NIFEDIAC CC 30 MG [id number] 1 tablet daily for raynaud's syndrome NIFEDIPINE 85867813168 No Longer Active Tawnya Pardo MA Active AMBIEN 10 MG TAB 1/2 tab by mouth at bedtime as needed for sleep ZOLPIDEM TARTRATE 07588029071 Active Harinder Hernandez DO Active CLONAZEPAM 1 MG TABS 1 tablet at bedtime for insomnia and restless legs 09/14 CLONAZEPAM 05954994009 Active Jeri Sosa RPT,RMA Active CLONAZEPAM 0.5 MG TABS 1 tab po daily CLONAZEPAM 69336443046 No Longer Active Harinder Hernandez DO Active PREDNISONE 10 MG TAB 1 tablet daily for COPD PREDNISONE 48867929548 Active Tawnya Pardo MA Active PROAIR HFA 108 (90 BASE) MCG/ACT AERS 2 puffs four times a day as needed 2012 ALBUTEROL SULFATE 71105176392 Active Tawnya Pardo MA Active FLOVENT HFA 110 MCG/ACT AERO 2 puffs inhaled b.i.d. FLUTICASONE PROPIONATE HFA 28582792658 Active Tawnya Pardo MA Active EPIPEN 0.3 MG/0.3ML URIEL DIRECTED EPINEPHRINE Active Jeri Sosa RPT,RMA Active ACIPHEX 20 MG TBEC 1 tab po daily RABEPRAZOLE SODIUM 23627629272 Active Tawnya Pardo MA Active CLONAZEPAM 0.5 MG TABS 1 tab po daily CLONAZEPAM 0.5 MG TABS 361156 CLONAZEPAM Inactive PREDNISONE 20 MG TAB 3 tabs today, then 1 tab twice daily for 3 day, then one daily for three days PREDNISONE 20 MG TAB 479855 PREDNISONE Inactive PREDNISONE 20 MG TAB 2 tabs daily for 4 days, 1 tab daily for 4 days, 1/2 tab daily for 4 days PREDNISONE 20 MG TAB 966210 PREDNISONE Inactive PREDNISONE 10 MG TABS 1 tab po daily PREDNISONE 10 MG TABS 452096 PREDNISONE Inactive TYLENOL EXTRA STRENGTH 500 MG TABS as needed TYLENOL EXTRA STRENGTH 500 MG TABS 627579 ACETAMINOPHEN Inactive MUPIROCIN 2 % OINT apply to affected area BID x 14 days MUPIROCIN 2 % OINT 628014 MUPIROCIN Inactive MONTELUKAST SODIUM 10 MG TABS 1 tab po in the evening MONTELUKAST SODIUM 10 MG TABS 20010818 MONTELUKAST SODIUM Inactive BENZONATATE 100 MG CAPS 1 cap po TID PRN BENZONATATE 100 MG CAPS 19730321 BENZONATATE Inactive NEURONTIN 300 MG CAP 1 cap by mouth three times daily for restless leg 06/22 NEURONTIN 300 MG CAP 972255 GABAPENTIN Inactive LEVAQUIN 500 MG TAB 1 tablet by mouth daily LEVAQUIN 500 MG TAB 122707 LEVOFLOXACIN Inactive PREDNISONE 20 MG TAB 1 TID x 2 days, then 1 BID x 3 days, then 1 Daily x 3 days, then stop PREDNISONE 20 MG TAB 548734 PREDNISONE Inactive POTASSIUM CHLORIDE ER 10 MEQ CR-TABS take 1 tab po daily POTASSIUM CHLORIDE ER 10 MEQ CR-TABS POTASSIUM CHLORIDE Inactive PREDNISONE 20 MG TAB 1 tab twice daily for 3 day, then one daily for three days PREDNISONE 20 MG TAB 712286 PREDNISONE Inactive TESSALON PERLES 100 MG CAP 1 to 2 tablets by mouth 3 times daily as needed for cough TESSALON PERLES 100 MG CAP 881973 BENZONATATE Inactive POTASSIUM CHLORIDE CR 10 MEQ [...] nightly for cholesterol LOVASTATIN 40 MG TABS 969808 LOVASTATIN Inactive CEFDINIR 300 MG ORAL CAPS take 1 cap po bid x 10 days CEFDINIR 300 MG ORAL CAPS 656817 CEFDINIR Inactive ACEBUTOLOL HCL 200 MG CAPS 1 cap in the morning and 2 caps in the evening ACEBUTOLOL HCL 200 MG CAPS 859783 ACEBUTOLOL HCL Inactive VENTOLIN HFA 108 (90 BASE) MCG/ACT AERS 2 -4 puffs four times a day PRN 2013 VENTOLIN HFA 108 (90 BASE) MCG/ACT AERS ALBUTEROL SULFATE Inactive LEVAQUIN 500 MG ORAL TABS Take 1 tab po daily x 8 days LEVAQUIN 500 MG ORAL TABS 707583 LEVOFLOXACIN Inactive PREDNISONE 20 MG TAB 2 tabs daily for 4 days, 1 tab daily for 4 days, 1/2 tab daily for 4 days PREDNISONE 20 MG TAB 793279 PREDNISONE Inactive LOVASTATIN 40 MG ORAL TABS Take 1 tab po every hs LOVASTATIN 40 MG ORAL TABS 802881 LOVASTATIN Inactive DILAUDID 2 MG ORAL TABS Take 1/2 tab po every 4 hours as needed for pain 2014 DILAUDID 2 MG ORAL TABS 294729 HYDROMORPHONE HCL Inactive AMITRIPTYLINE HCL 25 MG ORAL TABS 1 q hs prn AMITRIPTYLINE HCL 25 MG ORAL TABS 536763 AMITRIPTYLINE HCL Inactive MECLIZINE HCL 25 MG TAB 1 tablet three times daily for 3 days, then 1/2 tab three times daily for 3 days. MECLIZINE HCL 25 MG TAB 918514 MECLIZINE HCL Inactive AMLODIPINE BESYLATE 5 MG ORAL TABS Take 1 tab po daily AMLODIPINE BESYLATE 5 MG ORAL TABS 892973 AMLODIPINE BESYLATE Inactive TOPIRAMATE 25 MG TABS 1 tab po BID TOPIRAMATE 25 MG TABS 700523 TOPIRAMATE Inactive AZITHROMYCIN 250 MG TABS 2 po qd x 1 day, then 1 po qd x 4 days AZITHROMYCIN 250 MG TABS 6795124 AZITHROMYCIN Inactive AZITHROMYCIN 250 MG TABS 2 po qd x 1 day, then 1 po qd x 4 days AZITHROMYCIN 250 MG TABS 9455990 AZITHROMYCIN Inactive PREDNISONE 20 MG TAB 2 po qd x 5 days PREDNISONE 20 MG TAB 711330 PREDNISONE Inactive Vital Signs Date Name Value [...] Panel - Chemistry sodium, serum 138 mmol/L 427-344 8120/09/24 potassium, serum 3.5 mmol/L 3.5-5.2 chloride, serum [...] [phone] Encounters Code Encounter Date Provider Facility CPT-55083 Level 3 Est. Patient 12:37:21 CDT Harinder Cr [facility] CPT-53252 Level 3 Est. Patient 18:37:17 CDT Harinder Cr [facility] CPT-18851 Level 4 Est. Patient 11:15:54 CDT Nettie Newberry [facility] [place][note 2] CPT-16101 Level 3 Est. Patient 16:42:24 CDT Harinder Cr [facility] CPT-52925 Level 3 Est. Patient 15:03:36 CDT Harinder Cr [facility] CPT-65545 Level 3 Est. Patient 15:03:20 CDT Harinder Cr [facility] CPT-86829 Level 3 Est. Patient 12:14:34 CDT Harinder Hernandez [facility] CPT-38596 Level 3 Est. Patient 13:47:15 CDT Harinder Hernandez [facility] CPT-34121 Level 3 Est. Patient 14:08:24 CDT Harinder Hernandez [facility] CPT-63404 Level 3 Est. Patient 10:07:15 CDT Harinder Cr [facility] CPT-80619 Level 3 Est. Patient 10:06:59 CDT Harinder Cr [facility] CPT-99514 Level 3 Est. Patient 15:53:29 CDT Jae Morgan MD [facility] CPT-44079 Level 3 Est. Patient 17:19:04 CDT Harinder Hernandez [facility] CPT-11587 Level 3 Est. Patient 11:13:01 CDT Harinder Hernandez [facility] CPT-74367 Level 3 Est. Patient 09:03:58 CDT Harinder Cr [facility] CPT-79793 Level 3 Est. Patient 14:46:45 [employer] MAP Harinder Hernandez [facility] CPT-37837 Level 3 Est. Patient 09:35:49 [employer] MAP Harinder Cr [facility] CPT-84073 Level 3 Est. Patient 09:29:37 [employer] MAP Harinder Hernandez [facility] CPT-32090 Level 3 Est. Patient 15:51:07 CDT Harinder Cr [facility] CPT-79005 Level 3 Est. Patient 18:13:13 CDT Harinder Hernandez [facility] CPT-41205 Level 3 Est. Patient 10:44:19 CDT Harinder Cr [facility] CPT-41895 Level 4 Est. Patient 10:07:19 [employer] MAP Harinder Hernandez [facility] CPT-74505 Level 3 Est. Patient 15:59:32 [employer] MAP Harinder Cr [facility] Procedures Code Procedure Name Date Entry Date Standard Description CPT-41264 Venipuncture Draw Fee 18:21:27 CDT CPT-JTINJ Asp/Joint Injection 18:38:04 CDT CPT-33313 Immunization Each Additional Inj 17:38:04 CDT CPT-11209 Immunization Single Admin 17:38:04 CDT CPT-34529 Prevnar 13 17:38:04 CDT CPT-31026 Fluzone Quadrivalent preservative free (>=3yrs.) 17:38: 04 CDT CPT-23699 No Charge Offi Visit 11:14:03 CDT CPT-47718 Chest 2V Frontal and Lat 14:00:18 CDT CPT-OV Office Visit 16:10:28 CDT CPT-JTINJ Asp/Joint Injection 09:03:57 CDT CPT-Cryo Cryotherapy 09:35:49 [employer] MAP CPT-JTINJ Asp/Joint Injection 09:34:45 [employer] MAP CPT-J2930 Solu Medrol 125 mg (Methyl Prednisolone Sodium Succinate) 20:37:27 CDT CPT-20432 Abx/Therapy Injection 20:37:27 CDT CPT-97337 Port a cath flush 08:15:51 CDT CPT-91802 Port a cath flush 09:54:16 CDT CPT-62765 Port a cath flush 09:38:02 CDT CPT-42856 Port a cath flush 11:00:27 BOOKMAK[employer] MAP
--- OUTSIDE RECORDS SUMMARY | 2017-12-29 00:08 | XMS REPORT | Clinical Summary ---
Author Author Admin, QIE Organization [facility] Address Unknown Phone Unavailable Allergies, Adverse Reactions, [...] Patient Instruction PREDNISONE 20 MG TAB 1 tab twice daily for 3 day, then one daily for three days PREDNISONE [id number] Active Harinder Hernandez DO Active PREDNISONE 20 MG TAB 1 tablet twice daily for 2 days, then 1 tablet once daily for 2 days PREDNISONE 84599656346 No Longer Active Harinder Hernandez DO Active ASMANEX 120 METERED DOSES 220 MCG/INH INH AEPB 2 puffs orally twice daily MOMETASONE FUROATE 44733192709 Active Jeri Sosa RPT,RMA Active NIFEDIPINE ER 30 MG ORAL [id number] 1 daily NIFEDIPINE 64309265288 Active Tawnya Pardo MA Active TOPIRAMATE 25 MG TABS 1 tab po BID TOPIRAMATE 34657169373 No Longer Active Nettie Newberry APRN Active AMLODIPINE BESYLATE 5 MG ORAL TABS Take 1 tab po daily AMLODIPINE BESYLATE 29507193093 No Longer Active Nettie Newberry APRN Active MECLIZINE HCL 25 MG TAB 1 tablet three times daily for 3 days, then 1/2 tab three times daily for 3 days. MECLIZINE HCL 51018274405 No Longer Active Nettie Newberry APRN Active AMITRIPTYLINE HCL 25 MG ORAL TABS 1 q hs prn AMITRIPTYLINE HCL 88515759600 No Longer Active Nettie Newberry APRN Active DILAUDID 2 MG ORAL TABS Take 1/2 tab po every 4 hours as needed for pain 2014 HYDROMORPHONE HCL 71167109712 No Longer Active Nettie Newberry APRN Active CLOPIDOGREL BISULFATE 75 MG ORAL TABS 1 tab by mouth once daily CLOPIDOGREL BISULFATE 41727172719 Active Jeri Sosa RPT,RMA Active ATORVASTATIN CALCIUM 10 MG ORAL TABS 1 at bedtime ATORVASTATIN CALCIUM 12677496918 Active Jeri Sosa RPT,RMA Active LOVASTATIN 40 MG ORAL TABS Take 1 tab po every hs LOVASTATIN 26344927147 No Longer Active Harinder Hernandez DO Active PREDNISONE 20 MG TAB 2 tabs daily for 4 days, 1 tab daily for 4 days, 1/2 tab daily for 4 days PREDNISONE 35425046070 No Longer Active Harinder Hernandez DO Active LEVAQUIN 500 MG ORAL TABS Take 1 tab po daily x 8 days LEVOFLOXACIN 43625902848 No Longer Active Harinder Hernandez DO Active VENTOLIN HFA 108 (90 BASE) MCG/ACT AERS 2 -4 puffs four times a day PRN 2013 ALBUTEROL SULFATE 37712233546 No Longer Active Jeri Sosa RPT,RMA Active ACEBUTOLOL HCL 200 MG CAPS 1 cap in the morning and 2 caps in the evening ACEBUTOLOL HCL 56481730533 No Longer Active Harinder Hernandez DO Active CEFDINIR 300 MG ORAL CAPS take 1 cap po bid x 10 days CEFDINIR 17749325216 No Longer Active Harinder Hernandez DO Active LOVASTATIN 40 MG TABS 1 pill by mouth nightly for cholesterol LOVASTATIN 65377608419 No Longer Active Nettie Newberry APRN Active NITROSTAT 0.4 MG SUBL 1 tab under tongueas needed for chest pain ( may take 3 total, 5 min apart, then call 911) NITROGLYCERIN 98297918677 No Longer Active Nettie Newberry APRN Active POTASSIUM CHLORIDE CR 10 MEQ CPCR 1 capsule by mouth daily 02/14 POTASSIUM CHLORIDE 39430499313 No Longer Active Nettie Newberry APRN Active TESSALON PERLES 100 MG CAP 1 to 2 tablets by mouth 3 times daily as needed for cough BENZONATATE 50825792112 No Longer Active Nettie Newberry APRN Active THEOPHYLLINE ER 200 MG ORAL [id number] Take 1 tab every 12 hours THEOPHYLLINE 68262510480 Active Jeri Sosa RPT,RMA Active PREDNISONE 20 MG TAB 2 po qd x 5 days PREDNISONE 38773916488 No Longer Active Jae Morgan MD Active AZITHROMYCIN 250 MG TABS 2 po qd x 1 day, then 1 po qd x 4 days AZITHROMYCIN 17588962754 No Longer Active Jae Morgan MD Active PREDNISONE 20 MG TAB 1 tab twice daily for 3 day, then one daily for three days PREDNISONE 67351419027 No Longer Active Jae Morgan MD Active SINGULAIR 10 MG TABS 1 pill by mouth every evening for breathing. MONTELUKAST SODIUM 72025376449 Active Tawnya Pardo MA Active TYLENOL 325 MG TAB 3 by mouth q4h as needed ACETAMINOPHEN 64878146117 Active Harinder Hernandez DO Active POTASSIUM CHLORIDE ER 10 MEQ CR-TABS take 1 tab po daily POTASSIUM CHLORIDE 83407135243 No Longer Active Harinder Hernandez DO Active PREDNISONE 20 MG TAB 1 TID x 2 days, then 1 BID x 3 days, then 1 Daily x 3 days, then stop PREDNISONE 65682263020 No Longer Active Jillina Frazell [employer] Active LEVAQUIN 500 MG TAB 1 tablet by mouth daily LEVOFLOXACIN 14881280957 No Longer Active Jillina Frazell [employer] Active NEURONTIN 300 MG CAP 1 cap by mouth three times daily for restless leg 06/22 GABAPENTIN 97303185068 No Longer Active Harinder Hernandez DO Active BENZONATATE 100 MG CAPS 1 cap po TID PRN BENZONATATE 71458189596 No Longer Active Harinder Hernandez DO Active MONTELUKAST SODIUM 10 MG TABS 1 tab po in the evening MONTELUKAST SODIUM 71851342530 No Longer Active Harinder Hernandez DO Active MUPIROCIN 2 % OINT apply to affected area BID x 14 days MUPIROCIN 91982621681 No Longer Active Harinder Hernandez DO Active TYLENOL EXTRA STRENGTH 500 MG TABS as needed ACETAMINOPHEN 43052811185 No Longer Active Harinder Hernandez DO Active PREDNISONE 10 MG TABS 1 tab po daily PREDNISONE 04413610932 No Longer Active Harinder Hernandez DO Active PREDNISONE 20 MG TAB 2 tabs daily for 4 days, 1 tab daily for 4 days, 1/2 tab daily for 4 days PREDNISONE 07365001494 No Longer Active Harinder Hernandez DO Active AZITHROMYCIN 250 MG TABS 2 po qd x 1 day, then 1 po qd x 4 days AZITHROMYCIN 87354614683 No Longer Active Harinder Hernandez DO Active PREDNISONE 20 MG TAB 3 tabs today, then 1 tab twice daily for 3 day, then one daily for three days PREDNISONE 08230001305 No Longer Active Harinder Hernandez DO Active NIFEDIAC CC 30 MG [id number] 1 tablet daily for raynaud's syndrome NIFEDIPINE 34338169810 No Longer Active Tawnya Pardo MA Active AMBIEN 10 MG TAB 1/2 tab by mouth at bedtime as needed for sleep ZOLPIDEM TARTRATE 88784881062 Active Harinder Hernandez DO Active CLONAZEPAM 1 MG TABS 1 tablet at bedtime for insomnia and restless legs 09/14 CLONAZEPAM 77674658115 Active Jeri Sosa RPT,RMA Active CLONAZEPAM 0.5 MG TABS 1 tab po daily CLONAZEPAM 34434306435 No Longer Active Harinder Hernandez DO Active PREDNISONE 10 MG TAB 1 tablet daily for COPD PREDNISONE 50480337004 Active Tawnya Pardo MA Active PROAIR HFA 108 (90 BASE) MCG/ACT AERS 2 puffs four times a day as needed 2012 ALBUTEROL SULFATE 54195391644 Active Tawnya Pardo MA Active FLOVENT HFA 110 MCG/ACT AERO 2 puffs inhaled b.i.d. FLUTICASONE PROPIONATE HFA 48443254270 Active Tawnya Pardo MA Active EPIPEN 0.3 MG/0.3ML URIEL DIRECTED EPINEPHRINE Active Jeri Sosa RPT,RMA Active ACIPHEX 20 MG TBEC 1 tab po daily RABEPRAZOLE SODIUM 45896178873 Active Tawnya Pardo MA Active CLONAZEPAM 0.5 MG TABS 1 tab po daily CLONAZEPAM 0.5 MG TABS 428968 CLONAZEPAM Inactive PREDNISONE 20 MG TAB 3 tabs today, then 1 tab twice daily for 3 day, then one daily for three days PREDNISONE 20 MG TAB 230287 PREDNISONE Inactive PREDNISONE 20 MG TAB 2 tabs daily for 4 days, 1 tab daily for 4 days, 1/2 tab daily for 4 days PREDNISONE 20 MG TAB 118115 PREDNISONE Inactive PREDNISONE 10 MG TABS 1 tab po daily PREDNISONE 10 MG TABS 279744 PREDNISONE Inactive TYLENOL EXTRA STRENGTH 500 MG TABS as needed TYLENOL EXTRA STRENGTH 500 MG TABS 640176 ACETAMINOPHEN Inactive MUPIROCIN 2 % OINT apply to affected area BID x 14 days MUPIROCIN 2 % OINT 064726 MUPIROCIN Inactive MONTELUKAST SODIUM 10 MG TABS 1 tab po in the evening MONTELUKAST SODIUM 10 MG TABS 20010818 MONTELUKAST SODIUM Inactive BENZONATATE 100 MG CAPS 1 cap po TID PRN BENZONATATE 100 MG CAPS 517290 BENZONATATE Inactive NEURONTIN 300 MG CAP 1 cap by mouth three times daily for restless leg 06/22 NEURONTIN 300 MG CAP 883628 GABAPENTIN Inactive LEVAQUIN 500 MG TAB 1 tablet by mouth daily LEVAQUIN 500 MG TAB 164786 LEVOFLOXACIN Inactive PREDNISONE 20 MG TAB 1 TID x 2 days, then 1 BID x 3 days, then 1 Daily x 3 days, then stop PREDNISONE 20 MG TAB 416007 PREDNISONE Inactive POTASSIUM CHLORIDE ER 10 MEQ CR-TABS take 1 tab po daily POTASSIUM CHLORIDE ER 10 MEQ CR-TABS POTASSIUM CHLORIDE Inactive PREDNISONE 20 MG TAB 1 tab twice daily for 3 day, then one daily for three days PREDNISONE 20 MG TAB 049146 PREDNISONE Inactive TESSALON PERLES 100 MG CAP 1 to 2 tablets by mouth 3 times daily as needed for cough TESSALON PERLES 100 MG CAP 001014 BENZONATATE Inactive POTASSIUM CHLORIDE CR 10 MEQ [...] nightly for cholesterol LOVASTATIN 40 MG TABS 713307 LOVASTATIN Inactive CEFDINIR 300 MG ORAL CAPS take 1 cap po bid x 10 days CEFDINIR 300 MG ORAL CAPS 593271 CEFDINIR Inactive ACEBUTOLOL HCL 200 MG CAPS 1 cap in the morning and 2 caps in the evening ACEBUTOLOL HCL 200 MG CAPS 009762 ACEBUTOLOL HCL Inactive VENTOLIN HFA 108 (90 BASE) MCG/ACT AERS 2 -4 puffs four times a day PRN 2013 VENTOLIN HFA 108 (90 BASE) MCG/ACT AERS ALBUTEROL SULFATE Inactive LEVAQUIN 500 MG ORAL TABS Take 1 tab po daily x 8 days LEVAQUIN 500 MG ORAL TABS 875675 LEVOFLOXACIN Inactive PREDNISONE 20 MG TAB 2 tabs daily for 4 days, 1 tab daily for 4 days, 1/2 tab daily for 4 days PREDNISONE 20 MG TAB 399665 PREDNISONE Inactive LOVASTATIN 40 MG ORAL TABS Take 1 tab po every hs LOVASTATIN 40 MG ORAL TABS 746603 LOVASTATIN Inactive DILAUDID 2 MG ORAL TABS Take 1/2 tab po every 4 hours as needed for pain 2014 DILAUDID 2 MG ORAL TABS 247682 HYDROMORPHONE HCL Inactive AMITRIPTYLINE HCL 25 MG ORAL TABS 1 q hs prn AMITRIPTYLINE HCL 25 MG ORAL TABS 230450 AMITRIPTYLINE HCL Inactive MECLIZINE HCL 25 MG TAB 1 tablet three times daily for 3 days, then 1/2 tab three times daily for 3 days. MECLIZINE HCL 25 MG TAB 239857 MECLIZINE HCL Inactive AMLODIPINE BESYLATE 5 MG ORAL TABS Take 1 tab po daily AMLODIPINE BESYLATE 5 MG ORAL TABS 992297 AMLODIPINE BESYLATE Inactive TOPIRAMATE 25 MG TABS 1 tab po BID TOPIRAMATE 25 MG TABS 841427 TOPIRAMATE Inactive PREDNISONE 20 MG TAB 1 tablet twice daily for 2 days, then 1 tablet once daily for 2 days PREDNISONE 20 MG TAB 889750 PREDNISONE Inactive AZITHROMYCIN 250 MG TABS 2 po qd x 1 day, then 1 po qd x 4 days AZITHROMYCIN 250 MG TABS 7372064 AZITHROMYCIN Inactive AZITHROMYCIN 250 MG TABS 2 po qd x 1 day, then 1 po qd x 4 days AZITHROMYCIN 250 MG TABS 7120431 AZITHROMYCIN Inactive PREDNISONE 20 MG TAB 2 po qd x 5 days PREDNISONE 20 MG TAB 693527 PREDNISONE Inactive Vital Signs Date Name Value [...] Panel - Chemistry sodium, serum 138 mmol/L 512-073 4925/09/24 potassium, serum 3.5 mmol/L 3.5-5.2 chloride, serum [...] Magnesium - Chemistry cholesterol, serum 180 mg/dL 375-475 7956/08/08 triglyceride, serum, fasting 92 mg/dL 30-200 HDL cholesterol, serum 66 mg/dL 32-96 LDL cholesterol, serum 96 mg/dL 0-130 sodium, serum 142 mmol/L 166-278 8871/08/08 carbon dioxide, venous blood 27.4 mmol/L 21.0-32.0 potassium, serum 3.7 mmol/L 3.5-5.2 chloride, serum 105 mmol/L 98-107 blood glucose 89 mg/dL 65-110 urea nitrogen, blood 9 mg/dL 7-18 creatinine, serum 0.91 mg/dL 0.55-1.30 alanine aminotransferase (SGPT), serum 22 U/L 12-78 aspartate aminotransferase (SGOT), serum 21 U/L 15-37 calcium, serum 8.6 mg/dL 8.5-10.1 bilirubin, serum, total 0.40 mg/dL 0.00-1.00 Encounters Code Encounter Date Provider Facility CPT-88803 Level 3 Est. Patient 09:58:58 CDT Harinder W David [facility] CPT-01613 Level 3 Est. Patient 12:37:21 CDT Harinder Hernandez [facility] CPT-49452 Level 3 Est. Patient 18:37:17 CDT Harinder Hernandez [facility] CPT-88100 Level 4 Est. Patient 11:15:54 CDT Nettieog Newberry APRN [facility] CPT-74710 Level 3 Est. Patient 16:42:24 CDT Harinder Hernandez [facility] CPT-04313 Level 3 Est. Patient 15:03:36 CDT Harinder Hernandez [facility] CPT-10423 Level 3 Est. Patient 15:03:20 CDT Harinder Hernandez [facility] CPT-74037 Level 3 Est. Patient 12:14:34 CDT Harinder Hernandez [facility] CPT-19643 Level 3 Est. Patient 13:47:15 CDT Harinder Hernandez [facility] CPT-09745 Level 3 Est. Patient 14:08:24 CDT Harinder Hernandez [facility] CPT-23701 Level 3 Est. Patient 10:07:15 CDT Harinder Hernandez [facility] CPT-24635 Level 3 Est. Patient 10:06:59 CDT Harinder Hernandez [facility] CPT-57194 Level 3 Est. Patient 15:53:29 CDT Jae Morgan MD [facility] CPT-95324 Level 3 Est. Patient 17:19:04 CDT Harinder Shaye David [facility] CPT-39271 Level 3 Est. Patient 11:13:01 CDT Harinder Shaye Hernandez [facility] CPT-46206 Level 3 Est. Patient 09:03:58 CDT Harinder Cr [facility] CPT-15309 Level 3 Est. 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 Patient 09:35:49 SENIOR INFRASTRUCTURE ENGINEER Harinder Hernandez [facility] CPT-19078 Level 3 Est. Patient 09:29:37 SENIOR INFRASTRUCTURE ENGINEER Harinder Hernandez [facility] CPT-75746 Level 3 Est. Patient 15:51:07 CDT Harinder Hernandez [facility] CPT-49522 Level 3 Est. Patient 18:13:13 CDT Harinder Hernandez [facility] CPT-04906 Level 3 Est. Patient 10:44:19 CDT Harinder Hernandez [facility] CPT-61696 Level 4 Est. Patient 10:07:19 SENIOR INFRASTRUCTURE ENGINEER Harinder Hernandez [facility] CPT-10474 Level 3 Est. Patient 15:59:32 SENIOR INFRASTRUCTURE ENGINEER Harinder Cr [facility] Procedures Code Procedure Name Date Entry Date Standard Description CPT-16446 Magnesium - LAB USE ONLY 10:45:44 CDT CPT-08742 Lipid - LAB USE ONLY 10:45:44 CDT CPT-70213 CBC - LAB USE ONLY 10:45:44 CDT CPT-07202 Venipuncture Draw Fee 10:45:43 CDT CPT-43331 Venipuncture Draw Fee 18:21:27 CDT CPT-JTINJ Asp/Joint Injection 18:38:04 CDT CPT-58395 Immunization Each Additional Inj 17:38:04 CDT CPT-64403 Immunization Single Admin 17:38:04 CDT CPT-33014 Prevnar 13 17:38:04 CDT CPT-55880 Fluzone Quadrivalent preservative free (>=3yrs.) 17:38: 04 CDT CPT-85251 No Charge Offi Visit 11:14:03 CDT CPT-75947 Chest 2V Frontal and Lat 14:00:18 CDT CPT-OV Office Visit 16:10:28 CDT CPT-JTINJ Asp/Joint Injection 09:03:57 CDT CPT-Cryo Cryotherapy 09:35:49 SENIOR INFRASTRUCTURE ENGINEER CPT-JTINJ Asp/Joint Injection 09:34:45 SENIOR INFRASTRUCTURE ENGINEER CPT-J2930 Solu Medrol 125 mg (Methyl Prednisolone Sodium Succinate) 20:37:27 CDT CPT-88808 Abx/Therapy Injection 20:37:27 CDT CPT-26847 Port a cath flush 08:15:51 CDT CPT-94246 Port a cath flush 09:54:16 CDT CPT-80656 Port a cath flush 09:38:02 CDT CPT-83837 Port a cath flush 11:00:27 SENIOR INFRASTRUCTURE ENGINEER
[2017-12-29] MEDS ORDERED: EPINEPHrine INJECTION 1 MG/ML AMP IV STA (00:09)
--- OUTSIDE RECORDS SUMMARY | 2017-12-29 00:09 | XMS REPORT | Clinical Summary ---
Author Author Admin, QIE Organization [facility] Social Media Simplified Address Unknown Phone Unavailable Allergies, Adverse Reactions, [...] right lower quadrant 789.03 Resolved Harinder Cr Advid DO Abdominal pain, right lower quadrant Needs [...] Generic Name NDC Status Provider Patient Instruction THEOPHYLLINE ER 300 MG ORAL TABLET EXTENDED RELEASE 12 HOUR 1 po BID THEOPHYLLINE 29326146476 Active Kortney Mccain Active POTASSIUM CHLORIDE ER 20 MEQ ORAL CR-TABS 1 po q day POTASSIUM CHLORIDE 53142890102 Active Kortney Mccain Active POTASSIUM CHLORIDE 20 MEQ ORAL PACK 1 tab po q day POTASSIUM CHLORIDE 37096759279 No Longer Active Kortney Mccain Active POTASSIUM CHLORIDE CR 10 MEQ CPCR 1 capsule BID POTASSIUM CHLORIDE 30899457754 No Longer Active Kortney Mccain Active LASIX 20 MG TAB 1 tablet by mouth every morning FUROSEMIDE 78449835750 No Longer Active Kortney Mccain Active SPIRONOLACTONE 25 MG TAB 1 tablet by mouth daily SPIRONOLACTONE 44793217731 Active Kortney Mccain Active FLUOXETINE HCL 10 MG ORAL CAPS 1 po qd for depression/anxiety FLUOXETINE HCL 20365366006 Active Harinder Hernandez DO Active VOLTAREN 1 % GEL apply q 6-8 hour to left arm as needed for pain DICLOFENAC SODIUM 04236118620 Active Kortney Mccain Active ALBUTEROL SULFATE 0.083 % NEBU SOLN 1 vial neb q 4hrs for severe asthma. 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 FLUTICASONE PROPIONATE HFA 64067341417 Active Harinder Hernandez DO Active EPIPEN 2-BRUNA 0.3 MG/0.3ML INJ SOAJ 1 INJ NEEDED EPINEPHRINE 94289825311 Active Harinder Hernandez DO Active PREDNISONE 20 MG TAB 1 tab twice daily for 3 day, then one daily for three days PREDNISONE 03011684030 No Longer Active Harinder Hernandez DO Active PREDNISONE 20 MG TAB 1 tablet twice daily for 2 days, then 1 tablet once daily for 2 days PREDNISONE 70161069095 No Longer Active Harinder Heranndez DO Active ASMANEX 120 METERED DOSES 220 MCG/INH INH AEPB 2 puffs orally twice daily MOMETASONE FUROATE 27411383263 Active Jeri Sosa LPN Active TOPIRAMATE 25 MG TABS 1 tab po BID TOPIRAMATE 70338109929 No Longer Active Nettie Newberry MAHENDRA Active AMLODIPINE BESYLATE 5 MG ORAL TABS Take 1 tab po daily AMLODIPINE BESYLATE 10421460631 No Longer Active Nettie Newberry MAHENDRA Active MECLIZINE HCL 25 MG TAB 1 tablet three times daily for 3 days, then 1/2 tab three times daily for 3 days. MECLIZINE HCL 17800324923 No Longer Active Nettie Newberry MAHENDRA Active AMITRIPTYLINE HCL 25 MG ORAL TABS 1 q hs prn AMITRIPTYLINE HCL 39899479440 No Longer Active Nettie Newberry MAHENDRA Active DILAUDID 2 MG ORAL TABS Take 1/2 tab po every 4 hours as needed for pain 2014 HYDROMORPHONE HCL 73782428148 No Longer Active Nettie Newberry MAHENDRA Active CLOPIDOGREL BISULFATE 75 MG ORAL TABS 1 tab by mouth once daily CLOPIDOGREL BISULFATE 97085775924 Active Harinder Hernandez DO Active ATORVASTATIN CALCIUM 10 MG ORAL TABS 1 at bedtime ATORVASTATIN CALCIUM 73630081764 Active Kortney Mccain Active LOVASTATIN 40 MG ORAL TABS Take 1 tab po every hs LOVASTATIN 27524460777 No Longer Active Harinder Hernandez DO Active PREDNISONE 20 MG TAB 2 tabs daily for 4 days, 1 tab daily for 4 days, 1/2 tab daily for 4 days PREDNISONE 01806189177 No Longer Active Harinder Hernandez DO Active LEVAQUIN 500 MG ORAL TABS Take 1 tab po daily x 8 days LEVOFLOXACIN 14132162162 No Longer Active Harinder Hernandez DO Active VENTOLIN HFA 108 (90 BASE) MCG/ACT AERS 2 -4 puffs four times a day PRN 2013 ALBUTEROL SULFATE 50311810782 No Longer Active Jeri Sosa LPN Active ACEBUTOLOL HCL 200 MG CAPS 1 cap in the morning and 2 caps in the evening ACEBUTOLOL HCL 04256785891 No Longer Active Harinder Hernandez DO Active CEFDINIR 300 MG ORAL CAPS take 1 cap po bid x 10 days CEFDINIR 62510365249 No Longer Active Harinder Hernandez DO Active LOVASTATIN 40 MG TABS 1 pill by mouth nightly for cholesterol LOVASTATIN 66855547364 No Longer Active Nettie Newberry APRN Active NITROSTAT 0.4 MG SUBL 1 tab under tongueas needed for chest pain ( may take 3 total, 5 min apart, then call 911) NITROGLYCERIN 36762826177 No Longer Active Nettie Newberry APRN Active POTASSIUM CHLORIDE CR 10 MEQ CPCR 1 capsule by mouth daily 02/14 POTASSIUM CHLORIDE 23093292954 No Longer Active Nettie Newberry APRN Active TESSALON PERLES 100 MG CAP 1 to 2 tablets by mouth 3 times daily as needed for cough BENZONATATE 55197694799 No Longer Active Nettie Newberry APRN Active PREDNISONE 20 MG TAB 2 po qd x 5 days PREDNISONE 62304200059 No Longer Active Jae Morgan MD Active AZITHROMYCIN 250 MG TABS 2 po qd x 1 day, then 1 po qd x 4 days AZITHROMYCIN 12793669421 No Longer Active Jae Morgan MD Active PREDNISONE 20 MG TAB 1 tab twice daily for 3 day, then one daily for three days PREDNISONE 07568471867 No Longer Active Jae Morgan MD Active SINGULAIR 10 MG TABS 1 pill by mouth every evening for breathing. MONTELUKAST SODIUM 07951256717 Active Kortney Mccain Active TYLENOL 325 MG TAB 3 by mouth q4h as needed ACETAMINOPHEN 69298422136 Active Harinder Hernandez DO Active POTASSIUM CHLORIDE ER 10 MEQ CR-TABS take 1 tab po daily POTASSIUM CHLORIDE 12202114983 No Longer Active Harinder Hernandez DO Active PREDNISONE 20 MG TAB 1 TID x 2 days, then 1 BID x 3 days, then 1 Daily x 3 days, then stop PREDNISONE 51957218139 No Longer Active John Montemayor APRN Active LEVAQUIN 500 MG TAB 1 tablet by mouth daily LEVOFLOXACIN 87535794844 No Longer Active Jillkvng Cuelloshai MCCRAY Active NEURONTIN 300 MG CAP 1 cap by mouth three times daily for restless leg 06/22 GABAPENTIN 44247314563 No Longer Active Harinder Hernandez DO Active BENZONATATE 100 MG CAPS 1 cap po TID PRN BENZONATATE 40688636256 No Longer Active Harinder Hernandez DO Active MONTELUKAST SODIUM 10 MG TABS 1 tab po in the evening MONTELUKAST SODIUM 15603734923 No Longer Active Harinder Hernandez DO Active MUPIROCIN 2 % OINT apply to affected area BID x 14 days MUPIROCIN 69260387578 No Longer Active Harinder Hernandez DO Active TYLENOL EXTRA STRENGTH 500 MG TABS as needed ACETAMINOPHEN 77837685691 No Longer Active Harinder Hernandez DO Active PREDNISONE 10 MG TABS 1 tab po daily PREDNISONE 30797152084 No Longer Active Harinder Hernandez DO Active PREDNISONE 20 MG TAB 2 tabs daily for 4 days, 1 tab daily for 4 days, 1/2 tab daily for 4 days PREDNISONE 89830810523 No Longer Active Harinder Hernandez DO Active AZITHROMYCIN 250 MG TABS 2 po qd x 1 day, then 1 po qd x 4 days AZITHROMYCIN 42339637967 No Longer Active Harinder Hernandez DO Active PREDNISONE 20 MG TAB 3 tabs today, then 1 tab twice daily for 3 day, then one daily for three days PREDNISONE 42492967523 No Longer Active aHrinder Hernandez DO Active NIFEDIAC CC 30 MG [id number] 1 tablet daily for raynaud's syndrome NIFEDIPINE 43106889316 No Longer Active Tawnya Pardo MA Active AMBIEN 10 MG TAB 1/2 tab by mouth at bedtime as needed for sleep ZOLPIDEM TARTRATE 73130280634 Active Kortney Mccain Active CLONAZEPAM 1 MG TABS 1 tablet at bedtime for insomnia and restless legs 09/14 CLONAZEPAM 23898238925 Active Harinder Hernandez DO Active CLONAZEPAM 0.5 MG TABS 1 tab po daily CLONAZEPAM 80166188518 No Longer Active Harinder Hernandez DO Active PREDNISONE 10 MG TAB 1 tablet daily for COPD PREDNISONE 56770952505 Active Harinder Hernandez DO Active PROAIR HFA 108 (90 BASE) MCG/ACT AERS 2 puffs four times a day as needed 2012 ALBUTEROL SULFATE 39369955726 Active Harinder Hernandez DO Active FLOVENT HFA 110 MCG/ACT AERO 2 puffs inhaled b.i.d. FLUTICASONE PROPIONATE HFA 14709032987 Active Kortney Mccain Active ACIPHEX 20 MG TBEC 1 tab po daily RABEPRAZOLE SODIUM 69112609864 Active Kaylah Newberry Active CLONAZEPAM 0.5 MG TABS 1 tab po daily CLONAZEPAM 0.5 MG TABS 999864 CLONAZEPAM Inactive PREDNISONE 20 MG TAB 3 tabs today, then 1 tab twice daily for 3 day, then one daily for three days PREDNISONE 20 MG TAB 095049 PREDNISONE Inactive PREDNISONE 20 MG TAB 2 tabs daily for 4 days, 1 tab daily for 4 days, 1/2 tab daily for 4 days PREDNISONE 20 MG TAB 521527 PREDNISONE Inactive PREDNISONE 10 MG TABS 1 tab po daily PREDNISONE 10 MG TABS 112212 PREDNISONE Inactive TYLENOL EXTRA STRENGTH 500 MG TABS as needed TYLENOL EXTRA STRENGTH 500 MG TABS 343761 ACETAMINOPHEN Inactive MUPIROCIN 2 % OINT apply to affected area BID x 14 days MUPIROCIN 2 % OINT 186527 MUPIROCIN Inactive MONTELUKAST SODIUM 10 MG TABS 1 tab po in the evening MONTELUKAST SODIUM 10 MG TABS 20010818 MONTELUKAST SODIUM Inactive BENZONATATE 100 MG CAPS 1 cap po TID PRN BENZONATATE 100 MG CAPS 998175 BENZONATATE Inactive NEURONTIN 300 MG CAP 1 cap by mouth three times daily for restless leg 06/22 NEURONTIN 300 MG CAP 658853 GABAPENTIN Inactive LEVAQUIN 500 MG TAB 1 tablet by mouth daily LEVAQUIN 500 MG TAB 638263 LEVOFLOXACIN Inactive PREDNISONE 20 MG TAB 1 TID x 2 days, then 1 BID x 3 days, then 1 Daily x 3 days, then stop PREDNISONE 20 MG TAB 946248 PREDNISONE Inactive POTASSIUM CHLORIDE ER 10 MEQ CR-TABS take 1 tab po daily POTASSIUM CHLORIDE ER 10 MEQ CR-TABS POTASSIUM CHLORIDE Inactive PREDNISONE 20 MG TAB 1 tab twice daily for 3 day, then one daily for three days PREDNISONE 20 MG TAB 415009 PREDNISONE Inactive TESSALON PERLES 100 MG CAP 1 to 2 tablets by mouth 3 times daily as needed for cough TESSALON PERLES 100 MG CAP 477020 BENZONATATE Inactive POTASSIUM CHLORIDE CR 10 MEQ CPCR 1 capsule by mouth daily 02/14 POTASSIUM CHLORIDE CR 10 MEQ CPCR POTASSIUM CHLORIDE Inactive NITROSTAT 0.4 MG SUBL 1 tab under tongueas needed for chest pain ( may take 3 total, 5 min apart, then call 911) NITROSTAT 0.4 MG SUBL 608851 NITROGLYCERIN Inactive LOVASTATIN 40 MG TABS 1 pill by mouth nightly for cholesterol LOVASTATIN 40 MG TABS 529448 LOVASTATIN Inactive CEFDINIR 300 MG ORAL CAPS take 1 cap po bid x 10 days CEFDINIR 300 MG ORAL CAPS 513077 CEFDINIR Inactive ACEBUTOLOL HCL 200 MG CAPS 1 cap in the morning and 2 caps in the evening ACEBUTOLOL HCL 200 MG CAPS 116131 ACEBUTOLOL HCL Inactive VENTOLIN HFA 108 (90 BASE) MCG/ACT AERS 2 -4 puffs four times a day PRN 2013 VENTOLIN HFA 108 (90 BASE) MCG/ACT AERS ALBUTEROL SULFATE Inactive LEVAQUIN 500 MG ORAL TABS Take 1 tab po daily x 8 days LEVAQUIN 500 MG ORAL TABS 006486 LEVOFLOXACIN Inactive PREDNISONE 20 MG TAB 2 tabs daily for 4 days, 1 tab daily for 4 days, 1/2 tab daily for 4 days PREDNISONE 20 MG TAB 002329 PREDNISONE Inactive LOVASTATIN 40 MG ORAL TABS Take 1 tab po every hs LOVASTATIN 40 MG ORAL TABS 481152 LOVASTATIN Inactive DILAUDID 2 MG ORAL TABS Take 1/2 tab po every 4 hours as needed for pain 2014 DILAUDID 2 MG ORAL TABS 260885 HYDROMORPHONE HCL Inactive AMITRIPTYLINE HCL 25 MG ORAL TABS 1 q hs prn AMITRIPTYLINE HCL 25 MG ORAL TABS 520573 AMITRIPTYLINE HCL Inactive MECLIZINE HCL 25 MG TAB 1 tablet three times daily for 3 days, then 1/2 tab three times daily for 3 days. MECLIZINE HCL 25 MG TAB 184751 MECLIZINE HCL Inactive AMLODIPINE BESYLATE 5 MG ORAL TABS Take 1 tab po daily AMLODIPINE BESYLATE 5 MG ORAL TABS 707168 AMLODIPINE BESYLATE Inactive TOPIRAMATE 25 MG TABS 1 tab po BID TOPIRAMATE 25 MG TABS 725456 TOPIRAMATE Inactive PREDNISONE 20 MG TAB 1 tablet twice daily for 2 days, then 1 tablet once daily for 2 days PREDNISONE 20 MG TAB 425215 PREDNISONE Inactive PREDNISONE 20 MG TAB 1 tab twice daily for 3 day, then one daily for three days PREDNISONE 20 MG TAB 511708 PREDNISONE Inactive NIFEDIPINE ER 30 MG ORAL [id number] 1 daily NIFEDIPINE ER 30 MG ORAL [id number] NIFEDIPINE Inactive AMLODIPINE BESYLATE 5 MG TABS 1 tablet by mouth daily AMLODIPINE BESYLATE 5 MG TABS 320946 AMLODIPINE BESYLATE Inactive LASIX 20 MG TAB 1 tablet by mouth every morning LASIX 20 MG TAB 688912 FUROSEMIDE Inactive POTASSIUM CHLORIDE CR 10 MEQ CPCR 1 capsule BID POTASSIUM CHLORIDE CR 10 MEQ CPCR POTASSIUM CHLORIDE Inactive POTASSIUM CHLORIDE 20 MEQ ORAL PACK 1 tab po q day POTASSIUM CHLORIDE 20 MEQ ORAL PACK 0041111 POTASSIUM CHLORIDE Inactive AZITHROMYCIN 250 MG TABS 2 po qd x 1 day, then 1 po qd x 4 days AZITHROMYCIN 250 MG TABS 738249 AZITHROMYCIN Inactive AZITHROMYCIN 250 MG TABS 2 po qd x 1 day, then 1 po qd x 4 days AZITHROMYCIN 250 MG TABS 491038 AZITHROMYCIN Inactive PREDNISONE 20 MG TAB 2 po qd x 5 days PREDNISONE 20 MG TAB 583282 PREDNISONE Inactive Vital Signs Date Name Value [...] temperature weight E&M 124 [lb_av] Weight Measured Diagnostic Results Date Name Value Unit Range Description Lab Report: Basic Metabolic Panel - Chemistry sodium, serum 137 mmol/L 476-489 5240/01/03 potassium, serum 3.4 mmol/L 3.5-5.2 chloride, serum 102 mmol/L 98-107 carbon dioxide, venous blood 29.2 mmol/L 21.0-32.0 blood glucose 87 mg/dL 65-110 calcium, serum 8.5 mg/dL 8.5-10.1 urea nitrogen, blood 8 mg/dL 7-18 creatinine, serum 0.82 mg/dL 0.55-1.30 sodium, serum 140 mmol/L 071-506 4283/07/13 potassium, serum 3.2 mmol/L 3.5-5.2 chloride, serum 103 mmol/L 98-107 carbon dioxide, venous blood 26.9 mmol/L 21.0-32.0 blood glucose 93 mg/dL 65-110 calcium, serum 9.2 mg/dL 8.5-10.1 urea nitrogen, blood 13 mg/dL 7-18 creatinine, serum 0.84 mg/dL 0.60-1.30 sodium, serum 140 mmol/L 201-023 5402/08/21 potassium, serum 3.8 mmol/L 3.5-5.2 chloride, serum [...] ... - Chemistry sodium, serum 141 mmol/L 067-490 5437/08/07 carbon dioxide, venous blood 34.0 mmol/L 21.0-32.0 [...] 1.40 mg/dL 0.00-1.00 cholesterol, serum 192 mg/dL 441-765 3163/10/19 triglyceride, serum, fasting 71 mg/dL 30-200 HDL cholesterol, serum 72 mg/dL 32-60 LDL cholesterol, serum 106 mg/dL 0-130 Lab Report: MICROALB/CREAT W/RATIO - Chemistry albumin/creatinine ratio, urine < 30 mg/g mg/g{creat} 0-29 Lab Report: MICROALB/CREAT W/RATIO - Lab microalbumin, urine 10 0-19 Lab Report: THEOPHYLLINE - Toxicology theophylline level, serum 3.1 ug/mL 10.0-20.0 Encounters Code Encounter Date Provider Facility CPT-15743 Level 4 Est. Patient 14:45:25 CDT Harinder Hernandez DO [facility] CPT-93374 Level 4 Est. Patient 09:15:13 CDT Harinder Hernandez [facility] CPT-01529 Level 3 Est. Patient 11:51:58 CDT Harinder W David [facility] CPT-34530 Level 3 Est. Patient 11:30:05 CDT Harinder Hernandez [facility] CPT-01518 Level 4 Est. Patient 10:19:23 CDT Harinder Hernandez [facility] CPT-00540 Level 3 Est. Patient 09:58:58 CDT Harinder Hernandez [facility] CPT-66727 Level 3 Est. Patient 12:37:21 CDT Harinder Hernandez [facility] CPT-74779 Level 3 Est. Patient 18:37:17 CDT Harinder Cr [facility] CPT-83021 Level 4 Est. Patient 11:15:54 CDT Nettie King MAHENDRA [facility] CPT-39338 Level 3 Est. Patient 16:42:24 CDT Harinder Hernandez [facility] CPT-59199 Level 3 Est. Patient 15:03:36 CDT Harinder Hernandez [facility] CPT-74896 Level 3 Est. Patient 15:03:20 CDT Harinder Cr [facility] CPT-89783 Level 3 Est. Patient 12:14:34 CDT Harinder Hernandez [facility] CPT-31528 Level 3 Est. Patient 13:47:15 CDT Harinder Hernandez [facility] CPT-71684 Level 3 Est. Patient 14:08:24 CDT Harinder Hernandez [facility] CPT-08635 Level 3 Est. Patient 10:07:15 CDT Harinder rC [facility] CPT-12843 Level 3 Est. Patient 10:06:59 CDT Harinder Hernandez [facility] CPT-37559 Level 3 Est. Patient 15:53:29 CDT Jae Morgan MD [facility] CPT-03624 Level 3 Est. Patient 17:19:04 CDT Harinder Hernandez [facility] CPT-36873 Level 3 Est. Patient 11:13:01 CDT Harinder Hernandez [facility] CPT-08194 Level 3 Est. Patient 09:03:58 CDT Harinder Hernandez [facility] CPT-47633 Level 3 Est. Patient 14:46:45 FLUME TENDER Harinder Hernandez [facility] CPT-19471 Level 3 Est. Patient 09:35:49 FLUME TENDER Harinder Hernandez [facility] CPT-15486 Level 3 Est. Patient 09:29:37 FLUME TENDER Harinder Hernandez [facility] CPT-03175 Level 3 Est. Patient 15:51:07 CDT Harinder Hernandez [facility] CPT-78661 Level 3 Est. Patient 18:13:13 CDT Harinder Cr [facility] CPT-86842 Level 3 Est. Patient 10:44:19 CDT Harinder Cr [facility] CPT-85800 Level 4 Est. Patient 10:07:19 FLUME TENDER Harinder Hernandez [facility] CPT-09251 Level 3 Est. Patient 15:59:32 FLUME TENDER Harinder Cr [facility] Procedures Code Procedure Name Date Entry Date Standard Description CPT-29682 Abd compl w upright - XRAY USE ONLY 14:48:09 CDT 02/18 CPT-16587 Port a cath flush 13:46:05 CDT CPT-88039 Hip, complete, 2-3 views - XRAY USE ONLY 10:28:40 CDT CPT-44641 BMP - LAB USE ONLY 16:45:09 FLUME TENDER CPT-15970 Port a cath flush 12:00:13 FLUME TENDER CPT-TCMM Transitional Care Mgmt-Moderate 11:20:16 FLUME TENDER CPT-44823 First Vx - Ix admin for Medicare patients 17:35:15 CDT CPT-43096 Fluzone Preservative Free Intramuscular Suspension 17:35 :15 CDT CPT-95942 Microalbumin - LAB USE ONLY 11:52:05 CDT CPT-TCMM Transitional Care Mgmt-Moderate 11:33:57 CDT CPT-11389 No Charge Offi Visit 14:11:29 CDT CPT-92453 Magnesium - LAB USE ONLY 10:45:44 CDT CPT-02360 Lipid - LAB USE ONLY 10:45:44 CDT CPT-51354 CBC - LAB USE ONLY 10:45:44 CDT CPT-79943 Venipuncture Draw Fee 10:45:43 CDT CPT-94977 Venipuncture Draw Fee 18:21:27 CDT CPT-JTINJ Asp/Joint Injection 18:38:04 CDT CPT-63860 Immunization Each Additional Inj 17:38:04 CDT CPT-26261 Immunization Single Admin 17:38:04 CDT CPT-07549 Prevnar 13 17:38:04 CDT CPT-80480 Fluzone Quadrivalent preservative free (>=3yrs.) 17:38: 04 CDT CPT-65936 No Charge Offi Visit 11:14:03 CDT CPT-40075 Chest 2V Frontal and Lat 14:00:18 CDT CPT-OV Office Visit 16:10:28 CDT CPT-JTINJ Asp/Joint Injection 09:03:57 CDT CPT-Cryo Cryotherapy 09:35:49 FLUME TENDER CPT-JTINJ Asp/Joint Injection 09:34:45 FLUME TENDER CPT-J2930 Solu Medrol 125 mg (Methyl Prednisolone Sodium Succinate) 20:37:27 CDT CPT-01697 Abx/Therapy Injection 20:37:27 CDT CPT-96728 Port a cath flush 08:15:51 CDT CPT-49231 Port a cath flush 09:54:16 CDT CPT-32453 Port a cath flush 09:38:02 CDT CPT-06393 Port a cath flush 11:00:27 FLUME TENDER
--- OUTSIDE RECORDS SUMMARY | 2017-12-29 00:10 | XMS REPORT | Clinical Summary ---
Author Author Admin, QIE Organization [facility] [employer] Address Unknown Phone Unavailable Allergies, Adverse Reactions, [...] Active Harinder Hernandez DO DOXYCYCLINE Critical Active aHrinder Hernandez DO CODEINE Critical Active Harinder Hernandez [...] MG/0.3ML INJ SOAJ 1 INJ NEEDED EPINEPHRINE 17652794335 Active Tawnya aPrdo MA Active PREDNISONE 20 MG TAB 1 tab twice daily for 3 day, then one daily for three days PREDNISONE 09287768833 No Longer Active Harinder Hernandez DO Active PREDNISONE 20 MG TAB 1 tablet twice daily for 2 days, then 1 tablet once daily for 2 days PREDNISONE 26753009653 No Longer Active Harinder Hernandez DO Active ASMANEX 120 METERED DOSES 220 MCG/INH INH AEPB 2 puffs orally twice daily MOMETASONE FUROATE 68973234731 Active Jeri Sosa RPT,RMA Active NIFEDIPINE ER 30 MG ORAL [id number] 1 daily NIFEDIPINE 32016041458 Active Tawnya Pardo MA Active TOPIRAMATE 25 MG TABS 1 tab po BID TOPIRAMATE 25999067254 No Longer Active Nettie Newberry APRN Active AMLODIPINE BESYLATE 5 MG ORAL TABS Take 1 tab po daily AMLODIPINE BESYLATE 49547977351 No Longer Active Nettie Newberry APRN Active MECLIZINE HCL 25 MG TAB 1 tablet three times daily for 3 days, then 1/2 tab three times daily for 3 days. MECLIZINE HCL 69462255378 No Longer Active Nettie Newberry APRN Active AMITRIPTYLINE HCL 25 MG ORAL TABS 1 q hs prn AMITRIPTYLINE HCL 09578094826 No Longer Active Nettie Newberry APRN Active DILAUDID 2 MG ORAL TABS Take 1/2 tab po every 4 hours as needed for pain 2014 HYDROMORPHONE HCL 96394475744 No Longer Active Nettie Newberry APRN Active CLOPIDOGREL BISULFATE 75 MG ORAL TABS 1 tab by mouth once daily CLOPIDOGREL BISULFATE 78870967320 Active Tawnya Pardo MA Active ATORVASTATIN CALCIUM 10 MG ORAL TABS 1 at bedtime ATORVASTATIN CALCIUM 83750596258 Active Tawnya Pardo MA Active LOVASTATIN 40 MG ORAL TABS Take 1 tab po every hs LOVASTATIN 06192092687 No Longer Active Harinder Hernandez DO Active PREDNISONE 20 MG TAB 2 tabs daily for 4 days, 1 tab daily for 4 days, 1/2 tab daily for 4 days PREDNISONE 45280726672 No Longer Active Harinder Hernandez DO Active LEVAQUIN 500 MG ORAL TABS Take 1 tab po daily x 8 days LEVOFLOXACIN 81562833957 No Longer Active Harinder Hernandez DO Active VENTOLIN HFA 108 (90 BASE) MCG/ACT AERS 2 -4 puffs four times a day PRN 2013 ALBUTEROL SULFATE 04845942920 No Longer Active Jeri Sosa RPT,RMA Active ACEBUTOLOL HCL 200 MG CAPS 1 cap in the morning and 2 caps in the evening ACEBUTOLOL HCL 03315393226 No Longer Active Harinder Hernandez DO Active CEFDINIR 300 MG ORAL CAPS take 1 cap po bid x 10 days CEFDINIR 88945026802 No Longer Active Harinder Hernandez DO Active LOVASTATIN 40 MG TABS 1 pill by mouth nightly for cholesterol LOVASTATIN 49288633155 No Longer Active Nettie Newberry APRN Active NITROSTAT 0.4 MG SUBL 1 tab under tongueas needed for chest pain ( may take 3 total, 5 min apart, then call 911) NITROGLYCERIN 03126434515 No Longer Active Nettie Newberry APRN Active POTASSIUM CHLORIDE CR 10 MEQ CPCR 1 capsule by mouth daily 02/14 POTASSIUM CHLORIDE 66824367042 No Longer Active Nettie Newberry APRN Active TESSALON PERLES 100 MG CAP 1 to 2 tablets by mouth 3 times daily as needed for cough BENZONATATE 61662811326 No Longer Active Nettie Newberry APRN Active THEOPHYLLINE ER 200 MG ORAL [id number] Take 1 tab every 12 hours THEOPHYLLINE 89912977929 Active Tawnya Pardo MA Active PREDNISONE 20 MG TAB 2 po qd x 5 days PREDNISONE 16095772998 No Longer Active Jae Morgan MD Active AZITHROMYCIN 250 MG TABS 2 po qd x 1 day, then 1 po qd x 4 days AZITHROMYCIN 73605750821 No Longer Active Jae Morgan MD Active PREDNISONE 20 MG TAB 1 tab twice daily for 3 day, then one daily for three days PREDNISONE 91347945749 No Longer Active Jae Morgan MD Active SINGULAIR 10 MG TABS 1 pill by mouth every evening for breathing. MONTELUKAST SODIUM 79872567069 Active Tawnya Pardo MA Active TYLENOL 325 MG TAB 3 by mouth q4h as needed ACETAMINOPHEN 03837951348 Active Harinder Hernandez DO Active POTASSIUM CHLORIDE ER 10 MEQ CR-TABS take 1 tab po daily POTASSIUM CHLORIDE 28022179474 No Longer Active Harinder Hernandez DO Active PREDNISONE 20 MG TAB 1 TID x 2 days, then 1 BID x 3 days, then 1 Daily x 3 days, then stop PREDNISONE 42794292365 No Longer Active Derrickllkvng Montemayor APRN Active LEVAQUIN 500 MG TAB 1 tablet by mouth daily LEVOFLOXACIN 68495415583 No Longer Active Jillkvng Montemayor APRN Active NEURONTIN 300 MG CAP 1 cap by mouth three times daily for restless leg 06/22 GABAPENTIN 47223818828 No Longer Active Harinder Hernandez DO Active BENZONATATE 100 MG CAPS 1 cap po TID PRN BENZONATATE 48640937989 No Longer Active Harinder Hernandez DO Active MONTELUKAST SODIUM 10 MG TABS 1 tab po in the evening MONTELUKAST SODIUM 57968912201 No Longer Active Harinder Hernandez DO Active MUPIROCIN 2 % OINT apply to affected area BID x 14 days MUPIROCIN 65341980729 No Longer Active Harinder Hernandez DO Active TYLENOL EXTRA STRENGTH 500 MG TABS as needed ACETAMINOPHEN 92025085402 No Longer Active Harinder Hernandez DO Active PREDNISONE 10 MG TABS 1 tab po daily PREDNISONE 44317851498 No Longer Active Harinder Hernandez DO Active PREDNISONE 20 MG TAB 2 tabs daily for 4 days, 1 tab daily for 4 days, 1/2 tab daily for 4 days PREDNISONE 72635673175 No Longer Active Harinder Hernandez DO Active AZITHROMYCIN 250 MG TABS 2 po qd x 1 day, then 1 po qd x 4 days AZITHROMYCIN 17493168326 No Longer Active Harinder Hernandez DO Active PREDNISONE 20 MG TAB 3 tabs today, then 1 tab twice daily for 3 day, then one daily for three days PREDNISONE 89584788524 No Longer Active Harinder Hernandez DO Active NIFEDIAC CC 30 MG [id number] 1 tablet daily for raynaud's syndrome NIFEDIPINE 29206170492 No Longer Active Tawnya Pardo MA Active AMBIEN 10 MG TAB 1/2 tab by mouth at bedtime as needed for sleep ZOLPIDEM TARTRATE 90040989259 Active Harinder Hernandez DO Active CLONAZEPAM 1 MG TABS 1 tablet at bedtime for insomnia and restless legs 09/14 CLONAZEPAM 99835687988 Active Kaylah Newberry Active CLONAZEPAM 0.5 MG TABS 1 tab po daily CLONAZEPAM 67062761351 No Longer Active Harinder Hernandez DO Active PREDNISONE 10 MG TAB 1 tablet daily for COPD PREDNISONE 20163755981 Active Tawnya Pardo MA Active PROAIR HFA 108 (90 BASE) MCG/ACT AERS 2 puffs four times a day as needed 2012 ALBUTEROL SULFATE 24096636135 Active Tawnya Pardo MA Active FLOVENT HFA 110 MCG/ACT AERO 2 puffs inhaled b.i.d. FLUTICASONE PROPIONATE HFA 89453265017 Active Tawnya Pardo MA Active ACIPHEX 20 MG TBEC 1 tab po daily RABEPRAZOLE SODIUM 84176308417 Active Tawnya Pardo MA Active CLONAZEPAM 0.5 MG TABS 1 tab po daily CLONAZEPAM 0.5 MG TABS 976795 CLONAZEPAM Inactive PREDNISONE 20 MG TAB 3 tabs today, then 1 tab twice daily for 3 day, then one daily for three days PREDNISONE 20 MG TAB 214313 PREDNISONE Inactive PREDNISONE 20 MG TAB 2 tabs daily for 4 days, 1 tab daily for 4 days, 1/2 tab daily for 4 days PREDNISONE 20 MG TAB 700040 PREDNISONE Inactive PREDNISONE 10 MG TABS 1 tab po daily PREDNISONE 10 MG TABS 911882 PREDNISONE Inactive TYLENOL EXTRA STRENGTH 500 MG TABS as needed TYLENOL EXTRA STRENGTH 500 MG TABS 753312 ACETAMINOPHEN Inactive MUPIROCIN 2 % OINT apply to affected area BID x 14 days MUPIROCIN 2 % OINT 596364 MUPIROCIN Inactive MONTELUKAST SODIUM 10 MG TABS 1 tab po in the evening MONTELUKAST SODIUM 10 MG TABS 826480 MONTELUKAST SODIUM Inactive BENZONATATE 100 MG CAPS 1 cap po TID PRN BENZONATATE 100 MG CAPS 953775 BENZONATATE Inactive NEURONTIN 300 MG CAP 1 cap by mouth three times daily for restless leg 06/22 NEURONTIN 300 MG CAP 418097 GABAPENTIN Inactive LEVAQUIN 500 MG TAB 1 tablet by mouth daily LEVAQUIN 500 MG TAB 454406 LEVOFLOXACIN Inactive PREDNISONE 20 MG TAB 1 TID x 2 days, then 1 BID x 3 days, then 1 Daily x 3 days, then stop PREDNISONE 20 MG TAB 740500 PREDNISONE Inactive POTASSIUM CHLORIDE ER 10 MEQ CR-TABS take 1 tab po daily POTASSIUM CHLORIDE ER 10 MEQ CR-TABS POTASSIUM CHLORIDE Inactive PREDNISONE 20 MG TAB 1 tab twice daily for 3 day, then one daily for three days PREDNISONE 20 MG TAB 210770 PREDNISONE Inactive TESSALON PERLES 100 MG CAP 1 to 2 tablets by mouth 3 times daily as needed for cough TESSALON PERLES 100 MG CAP 442477 BENZONATATE Inactive POTASSIUM CHLORIDE CR 10 MEQ CPCR 1 capsule by mouth daily 02/14 POTASSIUM CHLORIDE CR 10 MEQ CPCR POTASSIUM CHLORIDE Inactive NITROSTAT 0.4 MG SUBL 1 tab under tongueas needed for chest pain ( may take 3 total, 5 min apart, then call 911) NITROSTAT 0.4 MG SUBL 385533 NITROGLYCERIN Inactive LOVASTATIN 40 MG TABS 1 pill by mouth nightly for cholesterol LOVASTATIN 40 MG TABS 053212 LOVASTATIN Inactive CEFDINIR 300 MG ORAL CAPS take 1 cap po bid x 10 days CEFDINIR 300 MG ORAL CAPS 363866 CEFDINIR Inactive ACEBUTOLOL HCL 200 MG CAPS 1 cap in the morning and 2 caps in the evening ACEBUTOLOL HCL 200 MG CAPS 924266 ACEBUTOLOL HCL Inactive VENTOLIN HFA 108 (90 BASE) MCG/ACT AERS 2 -4 puffs four times a day PRN 2013 VENTOLIN HFA 108 (90 BASE) MCG/ACT AERS ALBUTEROL SULFATE Inactive LEVAQUIN 500 MG ORAL TABS Take 1 tab po daily x 8 days LEVAQUIN 500 MG ORAL TABS 976206 LEVOFLOXACIN Inactive PREDNISONE 20 MG TAB 2 tabs daily for 4 days, 1 tab daily for 4 days, 1/2 tab daily for 4 days PREDNISONE 20 MG TAB 108028 PREDNISONE Inactive LOVASTATIN 40 MG ORAL TABS Take 1 tab po every hs LOVASTATIN 40 MG ORAL TABS 144594 LOVASTATIN Inactive DILAUDID 2 MG ORAL TABS Take 1/2 tab po every 4 hours as needed for pain 2014 DILAUDID 2 MG ORAL TABS 706497 HYDROMORPHONE HCL Inactive AMITRIPTYLINE HCL 25 MG ORAL TABS 1 q hs prn AMITRIPTYLINE HCL 25 MG ORAL TABS 896829 AMITRIPTYLINE HCL Inactive MECLIZINE HCL 25 MG TAB 1 tablet three times daily for 3 days, then 1/2 tab three times daily for 3 days. MECLIZINE HCL 25 MG TAB 280069 MECLIZINE HCL Inactive AMLODIPINE BESYLATE 5 MG ORAL TABS Take 1 tab po daily AMLODIPINE BESYLATE 5 MG ORAL TABS 924018 AMLODIPINE BESYLATE Inactive TOPIRAMATE 25 MG TABS 1 tab po BID TOPIRAMATE 25 MG TABS 229912 TOPIRAMATE Inactive PREDNISONE 20 MG TAB 1 tablet twice daily for 2 days, then 1 tablet once daily for 2 days PREDNISONE 20 MG TAB 145921 PREDNISONE Inactive PREDNISONE 20 MG TAB 1 tab twice daily for 3 day, then one daily for three days PREDNISONE 20 MG TAB 969222 PREDNISONE Inactive AZITHROMYCIN 250 MG TABS 2 po qd x 1 day, then 1 po qd x 4 days AZITHROMYCIN 250 MG TABS 4476443 AZITHROMYCIN Inactive AZITHROMYCIN 250 MG TABS 2 po qd x 1 day, then 1 po qd x 4 days AZITHROMYCIN 250 MG TABS 6199124 AZITHROMYCIN Inactive PREDNISONE 20 MG TAB 2 po qd x 5 days PREDNISONE 20 MG TAB 324541 PREDNISONE Inactive Vital Signs Date Name Value [...] E&M - 3141-9 121 [lb_av] Weight Measured Diagnostic Results Date Name [...] Magnesium - Chemistry cholesterol, serum 180 mg/dL 776-741 3425/08/08 triglyceride, serum, fasting 92 mg/dL 30-200 HDL cholesterol, serum 66 mg/dL 32-96 LDL cholesterol, serum 96 mg/dL 0-130 sodium, serum 142 mmol/L 078-998 3251/08/08 carbon dioxide, venous blood 27.4 mmol/L 21.0-32.0 [...] 10.0-20.0 Encounters Code Encounter Date Provider Facility CPT-77066 Level 3 Est. Patient 09:58:58 CDT Harinder Cr [facility] CPT-38483 Level 3 Est. Patient 12:37:21 CDT Harinder Hernandez [facility] CPT-48871 Level 3 Est. Patient 18:37:17 CDT Harinder Cr [facility] CPT-82826 Level 4 Est. Patient 11:15:54 CDT Nettie Newberry [facility] CPT-73686 Level 3 Est. Patient 16:42:24 CDT Harinder Hernandez [facility] CPT-01241 Level 3 Est. Patient 15:03:36 CDT Harinder Hernandez [facility] CPT-53671 Level 3 Est. Patient 15:03:20 CDT Harinder Hernandez [facility] CPT-88459 Level 3 Est. Patient 12:14:34 CDT Harinder Hernandez [facility] CPT-80473 Level 3 Est. Patient 13:47:15 CDT Harinder Hernandez [facility] CPT-61001 Level 3 Est. Patient 14:08:24 CDT Harinder Hernandez [facility] CPT-44821 Level 3 Est. Patient 10:07:15 CDT Harinder Hernandez [facility] CPT-04196 Level 3 Est. Patient 10:06:59 CDT Harinder Hernandez [facility] CPT-20681 Level 3 Est. Patient 15:53:29 CDT Jae Morgan [facility] CPT-27909 Level 3 Est. Patient 17:19:04 CDT Harinder Hernandez [facility] CPT-79109 Level 3 Est. Patient 11:13:01 CDT Harinder Hernandez [facility] CPT-87659 Level 3 Est. Patient 09:03:58 CDT Harinder Hernandez [facility] CPT-78006 Level 3 Est. Patient 14:46:45 REGULATORY AFFAIRS ANALYST Harinder Hernandez [facility] CPT-77168 Level 3 Est. Patient 09:35:49 REGULATORY AFFAIRS ANALYST Harinder Shaye Hernandez [facility] CPT-89247 Level 3 Est. Patient 09:29:37 REGULATORY AFFAIRS ANALYST Harinder Cr David [facility] CPT-07070 Level 3 Est. Patient 15:51:07 CDT Harinder Hernandez [facility] CPT-72060 Level 3 Est. Patient 18:13:13 CDT Harinder Hernandez [facility] CPT-64891 Level 3 Est. Patient 10:44:19 CDT Harinder Hernandez [facility] CPT-07521 Level 4 Est. Patient 10:07:19 REGULATORY AFFAIRS ANALYST Harinder Cr [facility] CPT-12119 Level 3 Est. Patient 15:59:32 REGULATORY AFFAIRS ANALYST Harinder Cr [facility] Procedures Code Procedure Name Date Entry Date Standard Description CPT-TCMM Transitional Care Mgmt-Moderate 11:33:57 CDT CPT-25588 No Charge Offi Visit 14:11:29 CDT CPT-21396 Magnesium - LAB USE ONLY 10:45:44 CDT CPT-05816 Lipid - LAB USE ONLY 10:45:44 CDT CPT-91604 CBC - LAB USE ONLY 10:45:44 CDT CPT-58340 Venipuncture Draw Fee 10:45:43 CDT CPT-02319 Venipuncture Draw Fee 18:21:27 CDT CPT-JTINJ Asp/Joint Injection 18:38:04 CDT CPT-38665 Immunization Each Additional Inj 17:38:04 CDT CPT-67255 Immunization Single Admin 17:38:04 CDT CPT-39977 Prevnar 13 17:38:04 CDT CPT-81283 Fluzone Quadrivalent preservative free (>=3yrs.) 17:38: 04 CDT CPT-59389 No Charge Offi Visit 11:14:03 CDT CPT-73053 Chest 2V Frontal and Lat 14:00:18 CDT CPT-OV Office Visit 16:10:28 CDT CPT-JTINJ Asp/Joint Injection 09:03:57 CDT CPT-Cryo Cryotherapy 09:35:49 REGULATORY AFFAIRS ANALYST CPT-JTINJ Asp/Joint Injection 09:34:45 REGULATORY AFFAIRS ANALYST CPT-J2930 Solu Medrol 125 mg (Methyl Prednisolone Sodium Succinate) 20:37:27 CDT CPT-04754 Abx/Therapy Injection 20:37:27 CDT CPT-22362 Port a cath flush 08:15:51 CDT CPT-96655 Port a cath flush 09:54:16 CDT CPT-57528 Port a cath flush 09:38:02 CDT CPT-88452 Port a cath flush 11:00:27 REGULATORY AFFAIRS ANALYST
--- OUTSIDE RECORDS SUMMARY | 2017-12-29 00:11 | XMS REPORT | Clinical Summary ---
Author Author Admin, QIE Organization [facility] Address Unknown Phone Unavailable Allergies, Adverse [...] legs syndrome (RLS) Breast mass, right 611.72 Active Harinder Hernandez DO Lump or mass in breast Health maintenance exam V70.0 Active Harinder Hernandez DO Routine general medical examination at a health care facility Encounter for fitting and adjustment of vascular catheter V58.81 Active Greg Moore, RN Encounter for fitting and adjustment of vascular catheter Back pain, lumbar 724.2 Active Harinder Hernandez DO Lumbago Insomnia 780.52 Active Harinder Hernandez DO Insomnia, unspecified Raynaud's syndrome 443.0 Active Harinder Hernandez DO Raynaud's syndrome Sacroiliitis, right 720.2 Active Harinder Hernandez DO Sacroiliitis, not [...] with (acute) exacerbation Biceps tendinitis, left 726.12 Active Harinder Hernandez DO Bicipital tenosynovitis Nausea and vomiting 787.01 Resolved Jae Morgan MD Nausea with vomiting Diarrhea 787.91 Resolved Jae Morgan MD Diarrhea Benign positional vertigo 386.11 Active Harinder Hernandez DO Benign paroxysmal positional vertigo Colon cancer screening V76.51 Active [facility] [employer] Screening for malignant neoplasms of colon Screening for malignant neoplasm, colon V76.51 Active [facility] [employer] Screening for malignant neoplasms of colon Pneumonia 486 Active Harinder Hernandez DO Pneumonia, organism unspecified Bacteremia 790.7 Active Harinder Hernandez DO Unspecified bacteremia Clostridium difficile colitis 008.45 Active Harinder Hernandez DO Intestinal infection due to clostridium difficile Abdominal pain, right lower quadrant 789.03 Active Harinder Hernandez DO Abdominal pain, right lower quadrant Needs vaccination for influenza V04.81 Active 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 Melonie [employer] Need for prophylactic vaccination and inoculation against influenza Need for prophylactic vaccination against streptococcus pneumoniae ( Pneumococcus) V03.82 Active 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 Melonie [employer] Need for prophylactic vaccination against Streptococcus pneumoniae [pneumococcus ] Greater trochanteric bursitis, left 726.5 Active Harinder Hernandez DO Enthesopathy of hip region Dysphagia 787.20 Active Harinder Hernandez DO Dysphagia , unspecified Nausea and vomiting ICD-787.01 Inactive Jae Morgan MD Diarrhea ICD-787.91 Inactive Jae Morgan MD Medication List Medication Instructions Start Date Stop Date Generic Name NDC Status Provider Patient Instruction LOVASTATIN 40 MG ORAL TABS Take 1 tab po every hs LOVASTATIN 76957145721 Active Johny Dawkins MD Active AMLODIPINE BESYLATE 5 MG ORAL TABS Take 1 tab po daily AMLODIPINE BESYLATE 40299497473 Active Tawnya Pardo MA Active VENTOLIN HFA 108 (90 BASE) MCG/ACT AERS 2 -4 puffs four times a day PRN 2013 ALBUTEROL SULFATE 40116597292 No Longer Active Jeri Sosa RPT,RMA Active DILAUDID 2 MG ORAL TABS Take 1/2 tab po every 4 hours as needed for pain 2014 HYDROMORPHONE HCL 89503599139 Active Harinder Hernandez DO Active ACEBUTOLOL HCL 200 MG CAPS 1 cap in the morning and 2 caps in the evening ACEBUTOLOL HCL 34494378500 No Longer Active Harinder Hernandez DO Active CEFDINIR 300 MG ORAL CAPS take 1 cap po bid x 10 days CEFDINIR 23556088070 No Longer Active Harinder Hernandez DO Active AMITRIPTYLINE HCL 25 MG ORAL TABS 1 q hs prn AMITRIPTYLINE HCL 78273890670 Active Tawnya Pardo MA Active LOVASTATIN 40 MG TABS 1 pill by mouth nightly for cholesterol LOVASTATIN 56593934112 No Longer Active Nettie Newberry APRN Active NITROSTAT 0.4 MG SUBL 1 tab under tongueas needed for chest pain ( may take 3 total, 5 min apart, then call 911) NITROGLYCERIN 76683059035 No Longer Active Nettie Newberry APRN Active POTASSIUM CHLORIDE CR 10 MEQ CPCR 1 capsule by mouth daily 02/14 POTASSIUM CHLORIDE 69826468053 No Longer Active Nettie Newberry APRN Active TESSALON PERLES 100 MG CAP 1 to 2 tablets by mouth 3 times daily as needed for cough BENZONATATE 16285260100 No Longer Active Nettie Newberry APRN Active THEOPHYLLINE ER 200 MG ORAL [id number] Take 1 tab every 12 hours THEOPHYLLINE 66872438202 Active Tawnya Pardo MA Active PREDNISONE 20 MG TAB 2 po qd x 5 days PREDNISONE 24326688032 No Longer Active Jae Morgan MD Active AZITHROMYCIN 250 MG TABS 2 po qd x 1 day, then 1 po qd x 4 days AZITHROMYCIN 57155892929 No Longer Active Jae Morgan MD Active PREDNISONE 20 MG TAB 1 tab twice daily for 3 day, then one daily for three days PREDNISONE 53965043116 No Longer Active Jae Morgan MD Active MECLIZINE HCL 25 MG TAB 1 tablet three times daily for 3 days, then 1/2 tab three times daily for 3 days. MECLIZINE HCL 05183799707 Active Harinder Hernandez DO Active SINGULAIR 10 MG TABS 1 pill by mouth every evening for breathing. MONTELUKAST SODIUM 84571236019 Active Tawnya Pardo MA Active TYLENOL 325 MG TAB 3 by mouth q4h as needed ACETAMINOPHEN 34074023640 Active Harinder Hernandez DO Active POTASSIUM CHLORIDE ER 10 MEQ CR-TABS take 1 tab po daily POTASSIUM CHLORIDE 23622964790 No Longer Active Harinder Hernandez DO Active PREDNISONE 20 MG TAB 1 TID x 2 days, then 1 BID x 3 days, then 1 Daily x 3 days, then stop PREDNISONE 95094476501 No Longer Active Jillina Fradankl [employer] Active LEVAQUIN 500 MG TAB 1 tablet by mouth daily LEVOFLOXACIN 15590581424 No Longer Active Jillina Frazell [employer] Active NEURONTIN 300 MG CAP 1 cap by mouth three times daily for restless leg 06/22 GABAPENTIN 36757373553 No Longer Active Harinder Hernandez DO Active BENZONATATE 100 MG CAPS 1 cap po TID PRN BENZONATATE 78003131161 No Longer Active Harinder Hernandez DO Active MONTELUKAST SODIUM 10 MG TABS 1 tab po in the evening MONTELUKAST SODIUM 81248844259 No Longer Active Harinder Hernandez DO Active MUPIROCIN 2 % OINT apply to affected area BID x 14 days MUPIROCIN 28733875452 No Longer Active Harinder Hernandez DO Active TYLENOL EXTRA STRENGTH 500 MG TABS as needed ACETAMINOPHEN 22375501678 No Longer Active Harinder Hernandez DO Active PREDNISONE 10 MG TABS 1 tab po daily PREDNISONE 98214071158 No Longer Active Harinder Hernandez DO Active PREDNISONE 20 MG TAB 2 tabs daily for 4 days, 1 tab daily for 4 days, 1/2 tab daily for 4 days PREDNISONE 73452448966 No Longer Active Harinder Hernandez DO Active AZITHROMYCIN 250 MG TABS 2 po qd x 1 day, then 1 po qd x 4 days AZITHROMYCIN 05420207725 No Longer Active Harinder Hernandez DO Active PREDNISONE 20 MG TAB 3 tabs today, then 1 tab twice daily for 3 day, then one daily for three days PREDNISONE 52754753878 No Longer Active Harinder Hernandez DO Active NIFEDIAC CC 30 MG [id number] 1 tablet daily for raynaud's syndrome NIFEDIPINE 21531442772 No Longer Active Tawnya Pardo MA Active AMBIEN 10 MG TAB 1/2 tab by mouth at bedtime as needed for sleep ZOLPIDEM TARTRATE 12554523906 Active Harinder Hernandez DO Active CLONAZEPAM 1 MG TABS 1 tablet at bedtime for insomnia and restless legs 09/14 CLONAZEPAM 03940292754 Active Harinder Hernandez DO Active CLONAZEPAM 0.5 MG TABS 1 tab po daily CLONAZEPAM 25079466344 No Longer Active Harinder Hernandez DO Active PREDNISONE 10 MG TAB 1 tablet daily for COPD PREDNISONE 30631590913 Active Tawnya Pardo MA Active PROAIR HFA 108 (90 BASE) MCG/ACT AERS 2 puffs four times a day as needed 2012 ALBUTEROL SULFATE 67398459494 Active Tawnya Pardo MA Active FLOVENT HFA 110 MCG/ACT AERO 2 puffs inhaled b.i.d. FLUTICASONE PROPIONATE HFA 92490751144 Active Tawnya Pardo MA Active EPIPEN 0.3 MG/0.3ML URIEL DIRECTED EPINEPHRINE Active Demetrius JOHNSON Active ACIPHEX 20 MG TBEC 1 tab po daily RABEPRAZOLE SODIUM 27994494107 Active Tawnya Pardo MA Active TOPIRAMATE 25 MG TABS 1 tab po BID TOPIRAMATE 68065600402 Active Tawnya Pardo MA Active CLONAZEPAM 0.5 MG TABS 1 tab po daily CLONAZEPAM 0.5 MG TABS 384415 CLONAZEPAM Inactive PREDNISONE 20 MG TAB 3 tabs today, then 1 tab twice daily for 3 day, then one daily for three days PREDNISONE 20 MG TAB 138316 PREDNISONE Inactive PREDNISONE 20 MG TAB 2 tabs daily for 4 days, 1 tab daily for 4 days, 1/2 tab daily for 4 days PREDNISONE 20 MG TAB 968769 PREDNISONE Inactive PREDNISONE 10 MG TABS 1 tab po daily PREDNISONE 10 MG TABS 905030 PREDNISONE Inactive TYLENOL EXTRA STRENGTH 500 MG TABS as needed TYLENOL EXTRA STRENGTH 500 MG TABS 775187 ACETAMINOPHEN Inactive MUPIROCIN 2 % OINT apply to affected area BID x 14 days MUPIROCIN 2 % OINT 626144 MUPIROCIN Inactive MONTELUKAST SODIUM 10 MG TABS 1 tab po in the evening MONTELUKAST SODIUM 10 MG TABS 20010818 MONTELUKAST SODIUM Inactive BENZONATATE 100 MG CAPS 1 cap po TID PRN BENZONATATE 100 MG CAPS 233408 BENZONATATE Inactive NEURONTIN 300 MG CAP 1 cap by mouth three times daily for restless leg 06/22 NEURONTIN 300 MG CAP 770675 GABAPENTIN Inactive LEVAQUIN 500 MG TAB 1 tablet by mouth daily LEVAQUIN 500 MG TAB 604276 LEVOFLOXACIN Inactive PREDNISONE 20 MG TAB 1 TID x 2 days, then 1 BID x 3 days, then 1 Daily x 3 days, then stop PREDNISONE 20 MG TAB 489147 PREDNISONE Inactive POTASSIUM CHLORIDE ER 10 MEQ CR-TABS take 1 tab po daily POTASSIUM CHLORIDE ER 10 MEQ CR-TABS POTASSIUM CHLORIDE Inactive PREDNISONE 20 MG TAB 1 tab twice daily for 3 day, then one daily for three days PREDNISONE 20 MG TAB 419105 PREDNISONE Inactive TESSALON PERLES 100 MG CAP 1 to 2 tablets by mouth 3 times daily as needed for cough TESSALON PERLES 100 MG CAP 599926 BENZONATATE Inactive POTASSIUM CHLORIDE CR 10 MEQ [...] nightly for cholesterol LOVASTATIN 40 MG TABS 096030 LOVASTATIN Inactive CEFDINIR 300 MG ORAL CAPS take 1 cap po bid x 10 days CEFDINIR 300 MG ORAL CAPS 224257 CEFDINIR Inactive ACEBUTOLOL HCL 200 MG CAPS 1 cap in the morning and 2 caps in the evening ACEBUTOLOL HCL 200 MG CAPS 090168 ACEBUTOLOL HCL Inactive VENTOLIN HFA 108 (90 BASE) MCG/ACT AERS 2 -4 puffs four times a day PRN 2013 VENTOLIN HFA 108 (90 BASE) MCG/ACT AERS ALBUTEROL SULFATE Inactive AZITHROMYCIN 250 MG TABS 2 po qd x 1 day, then 1 po qd x 4 days AZITHROMYCIN 250 MG TABS 1591343 AZITHROMYCIN Inactive AZITHROMYCIN 250 MG TABS 2 po qd x 1 day, then 1 po qd x 4 days AZITHROMYCIN 250 MG TABS 2242657 AZITHROMYCIN Inactive PREDNISONE 20 MG TAB 2 po qd x 5 days PREDNISONE 20 MG TAB 767510 PREDNISONE Inactive Vital Signs Date Name Value [...] Panel - Chemistry sodium, serum 138 mmol/L 719-901 9328/09/24 potassium, serum 3.5 mmol/L 3.5-5.2 chloride, serum [...] [phone] Encounters Code Encounter Date Provider Facility CPT-64965 Level 3 Est. Patient 12:14:[address] [facility] CPT-08576 Level 3 Est. Patient 13:47:[address] [facility] CPT-48426 Level 3 Est. Patient 14:08:[address] [facility] CPT-33625 Level 3 Est. Patient 10:07:15 CDT Harinder Hernandez [facility] CPT-36022 Level 3 Est. Patient 10:06:[address] [facility] CPT-39718 Level 3 Est. Patient 15:53:29 CDT Jae Morgan MD [facility] CPT-65697 Level 3 Est. Patient 17:19:04 CDT Harinder Cr David [facility] CPT-39148 Level 3 Est. Patient 11:13:01 CDT Harinder Hernandez [facility] CPT-16235 Level 3 Est. Patient 09:03:58 CDT Harinder Hernandez [facility] CPT-80408 Level 3 Est. Patient 14:46:45 [employer] Harinder Shaye David [facility] CPT-41358 Level 3 Est. Patient 09:35:49 [employer] Harinder Hernandez [facility] CPT-21343 Level 3 Est. Patient 09:29:37 [employer] Harinder Cr David [facility] CPT-35619 Level 3 Est. Patient 15:51:07 CDT Harinder Hernandez [facility] CPT-48773 Level 3 Est. Patient 18:13:[address] [facility] CPT-65875 Level 3 Est. Patient 10:44:19 CDT Harinder Hernandez [facility] CPT-11965 Level 4 Est. Patient 10:07:19 [employer] Harinder Cr [facility] CPT-50002 Level 3 Est. Patient 15:59:32 [employer] Harinder Cr [facility] Procedures Code Procedure Name Date Entry Date Standard Description CPT-00262 Immunization Each Additional Inj 17:38:04 CDT CPT-56337 Immunization Single Admin 17:38:04 CDT CPT-54606 Prevnar 13 17:38:04 CDT CPT-97471 Fluzone Quadrivalent preservative free (>=3yrs.) 17:38: 04 CDT CPT-82635 No Charge Offi Visit 11:14:03 CDT CPT-04812 Chest 2V Frontal and Lat 14:00:18 CDT CPT-OV Office Visit 16:10:28 CDT CPT-JTINJ Asp/Joint Injection 09:03:57 CDT CPT-Cryo Cryotherapy 09:35:49 [employer] CPT-JTINJ Asp/Joint Injection 09:34:45 [employer] CPT-J2930 Solu Medrol 125 mg (Methyl Prednisolone Sodium Succinate) 20:37:27 CDT CPT-22964 Abx/Therapy Injection 20:37:27 CDT CPT-55230 Port a cath flush 08:15:51 CDT CPT-39594 Port a cath flush 09:54:16 CDT CPT-04480 Port a cath flush 09:38:02 CDT CPT-79224 Port a cath flush 11:00:27 [employer]
[2017-12-29] MEDS ORDERED: LORazepam INJ 2 MG/ML (ATIVAN) VIAL ONE (00:12)
[2017-12-29] MEDS ORDERED: EPINEPHrine INJECTION 1 MG/ML AMP ONE (00:12)
--- OUTSIDE RECORDS SUMMARY | 2017-12-29 00:12 | XMS REPORT | Clinical Summary ---
Author Author Admin, QIE Organization [facility] Address Unknown Phone Unavailable Allergies, Adverse [...] tab po q day therafter. POTASSIUM CHLORIDE [id number] Active Kortney Mccain Active POTASSIUM CHLORIDE CR 10 MEQ CPCR 1 capsule BID POTASSIUM CHLORIDE 98291474284 No Longer Active Kortney Mccain Active LASIX 20 MG TAB 1 tablet by mouth every morning FUROSEMIDE 72714069466 No Longer Active Kortney Mccain Active SPIRONOLACTONE 25 MG TAB 1 tablet by mouth daily SPIRONOLACTONE 43683392429 Active Ciera Pimentel Active FLUOXETINE HCL 10 MG ORAL CAPS 1 po qd for depression/anxiety FLUOXETINE HCL 63737852098 Active Harinder Hernandez DO Active VOLTAREN 1 % GEL apply q 6-8 hour to left arm as needed for pain DICLOFENAC SODIUM 55570314213 Active Harinder Hernandez DO Active ALBUTEROL SULFATE 0.083 % NEBU SOLN 1 vial neb q 4hrs for severe asthma. 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 FLUTICASONE PROPIONATE HFA 70232899104 Active Harinder Hernandez DO Active EPIPEN 2-BRUNA 0.3 MG/0.3ML INJ SOAJ 1 INJ NEEDED EPINEPHRINE 08105453460 Active Harinder Hernandez DO Active PREDNISONE 20 MG TAB 1 tab twice daily for 3 day, then one daily for three days PREDNISONE 95828903992 No Longer Active Harinder Hernandez DO Active PREDNISONE 20 MG TAB 1 tablet twice daily for 2 days, then 1 tablet once daily for 2 days PREDNISONE 55042510991 No Longer Active Harinder Hernandez DO Active ASMANEX 120 METERED DOSES 220 MCG/INH INH AEPB 2 puffs orally twice daily MOMETASONE FUROATE 91437566006 Active Jeri Sosa LPN Active TOPIRAMATE 25 MG TABS 1 tab po BID TOPIRAMATE 30909325162 No Longer Active Nettie Newberry APRN Active AMLODIPINE BESYLATE 5 MG ORAL TABS Take 1 tab po daily AMLODIPINE BESYLATE 33880018762 No Longer Active Nettie Newberry APRN Active MECLIZINE HCL 25 MG TAB 1 tablet three times daily for 3 days, then 1/2 tab three times daily for 3 days. MECLIZINE HCL 45855204309 No Longer Active Nettie Newberry MAHENDRA Active AMITRIPTYLINE HCL 25 MG ORAL TABS 1 q hs prn AMITRIPTYLINE HCL 38004362206 No Longer Active Nettieog Newberry APRN Active DILAUDID 2 MG ORAL TABS Take 1/2 tab po every 4 hours as needed for pain 2014 HYDROMORPHONE HCL 47262447333 No Longer Active Nettie Newberry APRN Active CLOPIDOGREL BISULFATE 75 MG ORAL TABS 1 tab by mouth once daily CLOPIDOGREL BISULFATE 79933703996 Active Harinder Hernandez DO Active ATORVASTATIN CALCIUM 10 MG ORAL TABS 1 at bedtime ATORVASTATIN CALCIUM 05794676332 Active Tawnya Pardo MA Active LOVASTATIN 40 MG ORAL TABS Take 1 tab po every hs LOVASTATIN 82088520417 No Longer Active Harinder Hernandez DO Active PREDNISONE 20 MG TAB 2 tabs daily for 4 days, 1 tab daily for 4 days, 1/2 tab daily for 4 days PREDNISONE 55256505281 No Longer Active Harinder Hernandez DO Active LEVAQUIN 500 MG ORAL TABS Take 1 tab po daily x 8 days LEVOFLOXACIN 82373797474 No Longer Active Harinder Hernandez DO Active VENTOLIN HFA 108 (90 BASE) MCG/ACT AERS 2 -4 puffs four times a day PRN 2013 ALBUTEROL SULFATE 18393352075 No Longer Active Jeri Sosa LPN Active ACEBUTOLOL HCL 200 MG CAPS 1 cap in the morning and 2 caps in the evening ACEBUTOLOL HCL 44277660062 No Longer Active Harinder Hernandez DO Active CEFDINIR 300 MG ORAL CAPS take 1 cap po bid x 10 days CEFDINIR 51576410900 No Longer Active Harinder Hernandez DO Active LOVASTATIN 40 MG TABS 1 pill by mouth nightly for cholesterol LOVASTATIN 73582236602 No Longer Active Nettie Newberry MAHENDRA Active NITROSTAT 0.4 MG SUBL 1 tab under tongueas needed for chest pain ( may take 3 total, 5 min apart, then call 911) NITROGLYCERIN 17529934707 No Longer Active Nettie Newberry MAHENDRA Active POTASSIUM CHLORIDE CR 10 MEQ CPCR 1 capsule by mouth daily 02/14 POTASSIUM CHLORIDE 86856916160 No [facility] TESSALON PERLES 100 MG CAP 1 to 2 tablets by mouth 3 times daily as needed for cough BENZONATATE 26048246470 No Longer Active Nettie Newberry MAHENDRA Active THEOPHYLLINE ER 200 MG ORAL [id number] Take 1 tab every 12 hours THEOPHYLLINE 06423298031 Active Harinder Hernandez DO Active PREDNISONE 20 MG TAB 2 po qd x 5 days PREDNISONE 30886511452 No Longer Active Jae Morgan MD Active AZITHROMYCIN 250 MG TABS 2 po qd x 1 day, then 1 po qd x 4 days AZITHROMYCIN 69880027459 No Longer Active Jae Morgan MD Active PREDNISONE 20 MG TAB 1 tab twice daily for 3 day, then one daily for three days PREDNISONE 56901334389 No Longer Active Jae Morgan MD Active SINGULAIR 10 MG TABS 1 pill by mouth every evening for breathing. MONTELUKAST SODIUM 49520764963 Active Tawnya Pardo MA Active TYLENOL 325 MG TAB 3 by mouth q4h as needed ACETAMINOPHEN 71179399912 Active Harinder Hernandez DO Active POTASSIUM CHLORIDE ER 10 MEQ CR-TABS take 1 tab po daily POTASSIUM CHLORIDE 16382507140 No Longer Active Harinder Hernandez DO Active PREDNISONE 20 MG TAB 1 TID x 2 days, then 1 BID x 3 days, then 1 Daily x 3 days, then stop PREDNISONE 07867815432 No Longer Active John Montemayor APRN Active LEVAQUIN 500 MG TAB 1 tablet by mouth daily LEVOFLOXACIN 13758667425 No Longer Active John Montemayor [employer] Active NEURONTIN 300 MG CAP 1 cap by mouth three times daily for restless leg 06/22 GABAPENTIN 40953586419 No Longer Active Harinder Hernandez DO Active BENZONATATE 100 MG CAPS 1 cap po TID PRN BENZONATATE 42535489908 No Longer Active Harinder Hernandez DO Active MONTELUKAST SODIUM 10 MG TABS 1 tab po in the evening MONTELUKAST SODIUM 20679607423 No Longer Active Harinder Hernandez DO Active MUPIROCIN 2 % OINT apply to affected area BID x 14 days MUPIROCIN 59589900898 No Longer Active Harinder Hernandez DO Active TYLENOL EXTRA STRENGTH 500 MG TABS as needed ACETAMINOPHEN 35676884274 No Longer Active Harinder Hernandez DO Active PREDNISONE 10 MG TABS 1 tab po daily PREDNISONE 85863096060 No Longer Active Harinder Hernandez DO Active PREDNISONE 20 MG TAB 2 tabs daily for 4 days, 1 tab daily for 4 days, 1/2 tab daily for 4 days PREDNISONE 99977554941 No Longer Active Harinder Hernandez DO Active AZITHROMYCIN 250 MG TABS 2 po qd x 1 day, then 1 po qd x 4 days AZITHROMYCIN 53367919185 No Longer Active Harinder Hernandez DO Active PREDNISONE 20 MG TAB 3 tabs today, then 1 tab twice daily for 3 day, then one daily for three days PREDNISONE 51890346377 No Longer Active Harinder Hernandez DO Active NIFEDIAC CC 30 MG [id number] 1 tablet daily for raynaud's syndrome NIFEDIPINE 94589208978 No Longer Active Tawnya Pardo MA Active AMBIEN 10 MG TAB 1/2 tab by mouth at bedtime as needed for sleep ZOLPIDEM TARTRATE 27934218282 Active Harinder Hernandez DO Active CLONAZEPAM 1 MG TABS 1 tablet at bedtime for insomnia and restless legs 09/14 CLONAZEPAM 99404244474 Active Harinder Hernandez DO Active CLONAZEPAM 0.5 MG TABS 1 tab po daily CLONAZEPAM 22937467653 No Longer Active Harinder Hernandez DO Active PREDNISONE 10 MG TAB 1 tablet daily for COPD PREDNISONE 94985137717 Active Harinder Hernandez DO Active PROAIR HFA 108 (90 BASE) MCG/ACT AERS 2 puffs four times a day as needed 2012 ALBUTEROL SULFATE 43094457491 Active Harinder Hernandez DO Active FLOVENT HFA 110 MCG/ACT AERO 2 puffs inhaled b.i.d. FLUTICASONE PROPIONATE HFA 26326570748 Active Kortney Mccain Active ACIPHEX 20 MG TBEC 1 tab po daily RABEPRAZOLE SODIUM 36114422777 Active Kaylah Newberry Active CLONAZEPAM 0.5 MG TABS 1 tab po daily CLONAZEPAM 0.5 MG TABS 349141 CLONAZEPAM Inactive PREDNISONE 20 MG TAB 3 tabs today, then 1 tab twice daily for 3 day, then one daily for three days PREDNISONE 20 MG TAB 189410 PREDNISONE Inactive PREDNISONE 20 MG TAB 2 tabs daily for 4 days, 1 tab daily for 4 days, 1/2 tab daily for 4 days PREDNISONE 20 MG TAB 231483 PREDNISONE Inactive PREDNISONE 10 MG TABS 1 tab po daily PREDNISONE 10 MG TABS 157469 PREDNISONE Inactive TYLENOL EXTRA STRENGTH 500 MG TABS as needed TYLENOL EXTRA STRENGTH 500 MG TABS 062752 ACETAMINOPHEN Inactive MUPIROCIN 2 % OINT apply to affected area BID x 14 days MUPIROCIN 2 % OINT 037207 MUPIROCIN Inactive MONTELUKAST SODIUM 10 MG TABS 1 tab po in the evening MONTELUKAST SODIUM 10 MG TABS 20010818 MONTELUKAST SODIUM Inactive BENZONATATE 100 MG CAPS 1 cap po TID PRN BENZONATATE 100 MG CAPS 977410 BENZONATATE Inactive NEURONTIN 300 MG CAP 1 cap by mouth three times daily for restless leg 06/22 NEURONTIN 300 MG CAP 945854 GABAPENTIN Inactive LEVAQUIN 500 MG TAB 1 tablet by mouth daily LEVAQUIN 500 MG TAB 323408 LEVOFLOXACIN Inactive PREDNISONE 20 MG TAB 1 TID x 2 days, then 1 BID x 3 days, then 1 Daily x 3 days, then stop PREDNISONE 20 MG TAB 019055 PREDNISONE Inactive POTASSIUM CHLORIDE ER 10 MEQ CR-TABS take 1 tab po daily POTASSIUM CHLORIDE ER 10 MEQ CR-TABS POTASSIUM CHLORIDE Inactive PREDNISONE 20 MG TAB 1 tab twice daily for 3 day, then one daily for three days PREDNISONE 20 MG TAB 618476 PREDNISONE Inactive TESSALON PERLES 100 MG CAP 1 to 2 tablets by mouth 3 times daily as needed for cough TESSALON PERLES 100 MG CAP 735225 BENZONATATE Inactive POTASSIUM CHLORIDE CR 10 MEQ CPCR 1 capsule by mouth daily 02/14 POTASSIUM CHLORIDE CR 10 MEQ CPCR POTASSIUM CHLORIDE Inactive NITROSTAT 0.4 MG SUBL 1 tab under tongueas needed for chest pain ( may take 3 total, 5 min apart, then call 911) NITROSTAT 0.4 MG SUBL 830647 NITROGLYCERIN Inactive LOVASTATIN 40 MG TABS 1 pill by mouth nightly for cholesterol LOVASTATIN 40 MG TABS 522330 LOVASTATIN Inactive CEFDINIR 300 MG ORAL CAPS take 1 cap po bid x 10 days CEFDINIR 300 MG ORAL CAPS 208870 CEFDINIR Inactive ACEBUTOLOL HCL 200 MG CAPS 1 cap in the morning and 2 caps in the evening ACEBUTOLOL HCL 200 MG CAPS 282061 ACEBUTOLOL HCL Inactive VENTOLIN HFA 108 (90 BASE) MCG/ACT AERS 2 -4 puffs four times a day PRN 2013 VENTOLIN HFA 108 (90 BASE) MCG/ACT AERS ALBUTEROL SULFATE Inactive LEVAQUIN 500 MG ORAL TABS Take 1 tab po daily x 8 days LEVAQUIN 500 MG ORAL TABS 814173 LEVOFLOXACIN Inactive PREDNISONE 20 MG TAB 2 tabs daily for 4 days, 1 tab daily for 4 days, 1/2 tab daily for 4 days PREDNISONE 20 MG TAB 614034 PREDNISONE Inactive LOVASTATIN 40 MG ORAL TABS Take 1 tab po every hs LOVASTATIN 40 MG ORAL TABS 998342 LOVASTATIN Inactive DILAUDID 2 MG ORAL TABS Take 1/2 tab po every 4 hours as needed for pain 2014 DILAUDID 2 MG ORAL TABS 454797 HYDROMORPHONE HCL Inactive AMITRIPTYLINE HCL 25 MG ORAL TABS 1 q hs prn AMITRIPTYLINE HCL 25 MG ORAL TABS 794481 AMITRIPTYLINE HCL Inactive MECLIZINE HCL 25 MG TAB 1 tablet three times daily for 3 days, then 1/2 tab three times daily for 3 days. MECLIZINE HCL 25 MG TAB 874443 MECLIZINE HCL Inactive AMLODIPINE BESYLATE 5 MG ORAL TABS Take 1 tab po daily AMLODIPINE BESYLATE 5 MG ORAL TABS 088500 AMLODIPINE BESYLATE Inactive TOPIRAMATE 25 MG TABS 1 tab po BID TOPIRAMATE 25 MG TABS 785326 TOPIRAMATE Inactive PREDNISONE 20 MG TAB 1 tablet twice daily for 2 days, then 1 tablet once daily for 2 days PREDNISONE 20 MG TAB 503740 PREDNISONE Inactive PREDNISONE 20 MG TAB 1 tab twice daily for 3 day, then one daily for three days PREDNISONE 20 MG TAB 424067 PREDNISONE Inactive NIFEDIPINE ER 30 MG ORAL [id number] 1 daily NIFEDIPINE ER 30 MG ORAL [id number] NIFEDIPINE Inactive AMLODIPINE BESYLATE 5 MG TABS 1 tablet by mouth daily AMLODIPINE BESYLATE 5 MG TABS 149712 AMLODIPINE BESYLATE Inactive LASIX 20 MG TAB 1 tablet by mouth every morning LASIX 20 MG TAB 342663 FUROSEMIDE Inactive POTASSIUM CHLORIDE CR 10 MEQ CPCR 1 capsule BID POTASSIUM CHLORIDE CR 10 MEQ CPCR POTASSIUM CHLORIDE Inactive AZITHROMYCIN 250 MG TABS 2 po qd x 1 day, then 1 po qd x 4 days AZITHROMYCIN 250 MG TABS 6046579 AZITHROMYCIN Inactive AZITHROMYCIN 250 MG TABS 2 po qd x 1 day, then 1 po qd x 4 days AZITHROMYCIN 250 MG TABS 9032734 AZITHROMYCIN Inactive PREDNISONE 20 MG TAB 2 po qd x 5 days PREDNISONE 20 MG TAB 805584 PREDNISONE Inactive Vital Signs Date Name Value [...] Panel - Chemistry sodium, serum 137 mmol/L 327-847 1601/01/03 potassium, serum 3.4 mmol/L 3.5-5.2 chloride, serum 102 mmol/L 98-107 carbon dioxide, venous blood 29.2 mmol/L 21.0-32.0 blood glucose 87 mg/dL 65-110 calcium, serum 8.5 mg/dL 8.5-10.1 urea nitrogen, blood 8 mg/dL 7-18 creatinine, serum 0.82 mg/dL 0.55-1.30 sodium, serum 140 mmol/L 795-159 5995/07/13 potassium, serum 3.2 mmol/L 3.5-5.2 chloride, serum 103 mmol/L 98-107 carbon dioxide, venous blood 26.9 mmol/L 21.0-32.0 blood glucose 93 mg/dL 65-110 calcium, serum 9.2 mg/dL 8.5-10.1 urea nitrogen, blood 13 mg/dL 7-18 creatinine, serum 0.84 mg/dL 0.60-1.30 sodium, serum 140 mmol/L 652-417 5907/08/21 potassium, serum 3.8 mmol/L 3.5-5.2 chloride, serum [...] ... - Chemistry sodium, serum 141 mmol/L 595-561 5710/08/07 carbon dioxide, venous blood 34.0 mmol/L 21.0-32.0 [...] 0-19 Encounters Code Encounter Date Provider Facility CPT-47884 Level 4 Est. Patient 14:45:25 CDT Harinder Cr [facility] CPT-34423 Level 4 Est. Patient 09:15:13 CDT Harinder Cr [facility] CPT-77367 Level 3 Est. Patient 11:51:58 CDT Harinder Cr [facility] CPT-01095 Level 3 Est. Patient 11:30:05 CDT Harinder Cr [facility] CPT-57571 Level 4 Est. Patient 10:19:23 CDT Harinder Cr [facility] CPT-90135 Level 3 Est. Patient 09:58:58 CDT Harinder Cr [facility] CPT-46557 Level 3 Est. Patient 12:37:21 CDT Harinder Cr [facility] CPT-04437 Level 3 Est. Patient 18:37:17 CDT Harinder Cr [facility] CPT-53423 Level 4 Est. Patient 11:15:54 CDT Nettie [facility] CPT-29328 Level 3 Est. Patient 16:42:24 CDT Harinder Cr [facility] CPT-94898 Level 3 Est. Patient 15:03:36 CDT Harinder Cr [facility] CPT-99088 Level 3 Est. Patient 15:03:20 CDT Harinder Cr [facility] CPT-10304 Level 3 Est. Patient 12:14:34 CDT Harinder Cr [facility] CPT-27892 Level 3 Est. Patient 13:47:15 CDT Hairnder Cr [facility] CPT-09638 Level 3 Est. Patient 14:08:24 CDT Harinder Hernandez [facility] CPT-07482 Level 3 Est. Patient 10:07:15 CDT Harinder Hernandez [facility] CPT-50442 Level 3 Est. Patient 10:06:59 CDT Harinder Hernandez [facility] CPT-48479 Level 3 Est. Patient 15:53:29 CDT Jae Morgan MD [facility] CPT-64524 Level 3 Est. Patient 17:19:04 CDT Harinder Hernandez [facility] CPT-13801 Level 3 Est. Patient 11:13:01 CDT Harinder Hernandez [facility] CPT-18991 Level 3 Est. Patient 09:03:58 CDT Harinder Hernandez [facility] CPT-96911 Level 3 Est. Patient 14:46:45 [employer] Harinder Hernandez [facility] CPT-52348 Level 3 Est. Patient 09:35:49 [employer] Harinder Hernandez [facility] CPT-78305 Level 3 Est. Patient 09:29:37 [employer] Harinder Hernandez [facility] CPT-06741 Level 3 Est. Patient 15:51:07 CDT Harinder Hernandez [facility] CPT-78424 Level 3 Est. Patient 18:13:13 CDT Harinder Hernandez [facility] CPT-04867 Level 3 Est. Patient 10:44:19 CDT Harinder Cr [facility] CPT-45384 Level 4 Est. Patient 10:07:19 [employer] Harinder Hernandez [facility] CPT-12532 Level 3 Est. Patient 15:59:32 [employer] Harinder Cr [facility] Procedures Code Procedure Name Date Entry Date Standard Description CPT-92570 Abd compl w upright - XRAY USE ONLY 14:48:09 CDT 02/18 CPT-53816 Port a cath flush 13:46:05 CDT CPT-58391 Hip, complete, 2-3 views - XRAY USE ONLY 10:28:40 CDT CPT-60269 BMP - LAB USE ONLY 16:45:09 [employer] CPT-60615 Port a cath flush 12:00:13 WE[employer] CPT-TCMM Transitional Care Mgmt-Moderate 11:20:16 WELL [employer] CPT-81047 First Vx - Ix admin for Medicare patients 17:35:15 CDT CPT-89856 Fluzone Preservative Free Intramuscular Suspension 17:35 :15 CDT CPT-94825 Microalbumin - LAB USE ONLY 11:52:05 CDT CPT-TCMM Transitional Care Mgmt-Moderate 11:33:57 CDT CPT-18168 No Charge Offi Visit 14:11:29 CDT CPT-31053 Magnesium - LAB USE ONLY 10:45:44 CDT CPT-53899 Lipid - LAB USE ONLY 10:45:44 CDT CPT-88298 CBC - LAB USE ONLY 10:45:44 CDT CPT-50158 Venipuncture Draw Fee 10:45:43 CDT CPT-11030 Venipuncture Draw Fee 18:21:27 CDT CPT-JTINJ Asp/Joint Injection 18:38:04 CDT CPT-51227 Immunization Each Additional Inj 17:38:04 CDT CPT-53956 Immunization Single Admin 17:38:04 CDT CPT-82322 Prevnar 13 17:38:04 CDT CPT-51046 Fluzone Quadrivalent preservative free (>=3yrs.) 17:38: 04 CDT CPT-90916 No Charge Offi Visit 11:14:03 CDT CPT-53645 Chest 2V Frontal and Lat 14:00:18 CDT CPT-OV Office Visit 16:10:28 CDT CPT-JTINJ Asp/Joint Injection 09:03:57 CDT CPT-Cryo Cryotherapy 09:35:49 [employer] CPT-JTINJ Asp/Joint Injection 09:34:45 WE[employer] CPT-J2930 Solu Medrol 125 mg (Methyl Prednisolone Sodium Succinate) 20:37:27 CDT CPT-72289 Abx/Therapy Injection 20:37:27 CDT CPT-70591 Port a cath flush 08:15:51 CDT CPT-31547 Port a cath flush 09:54:16 CDT CPT-46075 Port a cath flush 09:38:02 CDT CPT-65002 Port a cath flush 11:00:27 WE[employer]ER
--- OUTSIDE RECORDS SUMMARY | 2017-12-29 00:14 | XMS REPORT | Clinical Summary ---
Author Author Admin, QIE Organization [facility] Address Unknown Phone Unavailable Allergies, Adverse Reactions, [...] TABLET 1 tablet by mouth daily SPIRONOLACTONE [id number] No Longer Active Jeri Nieto Active PREDNISONE 20 MG ORAL TABLET 2 tablets by mouth today, then 1 tablet by mouth days 2-3 PREDNISONE 06559014312 No Longer Active Jeri Nieto Active NITROSTAT 0.4 MG SUBLINGUAL TABLET SUBLINGUAL 1 tab SL q5min PRN chest pain NITROGLYCERIN 60008911736 Active Meenu Alejo LPN Active THEOPHYLLINE ER 300 MG ORAL TABLET EXTENDED RELEASE 12 HOUR 1 po BID THEOPHYLLINE 24358595641 Active Kortney Mccain Active POTASSIUM CHLORIDE ER 20 MEQ ORAL TABLET EXTENDED RELEASE 1 po q day POTASSIUM CHLORIDE 30348493325 Active Kortney Mccain Active POTASSIUM CHLORIDE 20 MEQ ORAL PACKET 1 tab po q day POTASSIUM CHLORIDE 57864692143 No Longer Active Kortney Mccain Active POTASSIUM CHLORIDE ER 10 MEQ ORAL CAPSULE EXTENDED RELEASE 1 capsule BID 2016 POTASSIUM CHLORIDE 06635631097 No Longer Active Kortney Mccain Active LASIX 20 MG ORAL TABLET 1 tablet by mouth every morning FUROSEMIDE 41431716380 No Longer Active Kortney Mccain Active FLUOXETINE HCL 10 MG ORAL CAPSULE 1 po qd for depression/anxiety FLUOXETINE HCL 31731431393 Active Meenu Alejo LPN Active VOLTAREN 1 % TRANSDERMAL GEL apply q 6-8 hour to left arm as needed for pain DICLOFENAC SODIUM 28825811263 Active Kortney Mccain Active ALBUTEROL SULFATE (2.5 MG/3ML) 0.083% INHALATION NEBULIZATION SOLUTION 1 vial neb q 4hrs for severe asthma. 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 NIFEDIPINE 79653595347 Active Kortney Mccain Active AMLODIPINE BESYLATE 5 MG ORAL TABLET 1 tablet by mouth daily 2016 AMLODIPINE BESYLATE 78373494801 No Longer Active Harinder Hernandez DO Active TOPAMAX 25 MG ORAL TABLET 1 tab po BID TOPIRAMATE 82431726750 Active Kortney Mccain Active FLUTICASONE PROPIONATE 50 MCG/ACT NASAL SUSPENSION 2 sprays per nostril daily PRN Allergies FLUTICASONE PROPIONATE 42009246249 Active Meenu Alejo LPN Active NIFEDIPINE ER 30 MG ORAL TABLET EXTENDED RELEASE 24 HOUR 1 daily NIFEDIPINE 51592752736 No Longer Active Harinder Hernandez DO Active FLOVENT HFA 110 MCG/ACT INHALATION AEROSOL 2 puffs inhaled b.i.d. FLUTICASONE PROPIONATE HFA 97649158035 Active Harinder Hernandez DO Active EPIPEN 2-BRUNA 0.3 MG/0.3ML INJECTION SOLUTION AUTO-INJECTOR 1 INJ NEEDED EPINEPHRINE 02022300494 Active Meenu Alejo LPN Active PREDNISONE 20 MG ORAL TABLET 1 tab twice daily for 3 day, then one daily for three days PREDNISONE 13713645214 No Longer Active Harinder Hernandez DO Active PREDNISONE 20 MG ORAL TABLET 1 tablet twice daily for 2 days, then 1 tablet once daily for 2 days PREDNISONE 90866048928 No Longer Active Harinder Hernandez DO Active ASMANEX 120 METERED DOSES 220 MCG/INH INHALATION AEROSOL POWDER BREATH ACTIVATED 2 puffs orally twice daily MOMETASONE FUROATE 07857286083 Active Jeri Sosa LPN Active TOPIRAMATE 25 MG ORAL TABLET 1 tab po BID TOPIRAMATE 88952396860 No Longer Active Nettie Newberry APRN Active AMLODIPINE BESYLATE 5 MG ORAL TABLET Take 1 tab po daily AMLODIPINE BESYLATE 97348781173 No Longer Active Nettieog Newberry APRN Active MECLIZINE HCL 25 MG ORAL TABLET 1 tablet three times daily for 3 days, then 1/ 2 tab three times daily for 3 days. MECLIZINE HCL 08892906463 No Longer Active Nettie Newberry APRN Active AMITRIPTYLINE HCL 25 MG ORAL TABLET 1 q hs prn AMITRIPTYLINE HCL 94591827937 No Longer Active Nettie Newberry APRN Active DILAUDID 2 MG ORAL TABLET Take 1/2 tab po every 4 hours as needed for pain HYDROMORPHONE HCL 82494710099 No Longer Active Nettie Newberry APRN Active CLOPIDOGREL BISULFATE 75 MG ORAL TABLET 1 tab by mouth once daily CLOPIDOGREL BISULFATE 26239416722 Active Meenu Alejo LPN Active ATORVASTATIN CALCIUM 10 MG ORAL TABLET 1 at bedtime ATORVASTATIN CALCIUM 99384136802 Active Kortney Mccain Active LOVASTATIN 40 MG ORAL TABLET Take 1 tab po every hs LOVASTATIN 85006667576 No Longer Active Harinder Hernandez DO Active PREDNISONE 20 MG ORAL TABLET 2 tabs daily for 4 days, 1 tab daily for 4 days, 1/2 tab daily for 4 days PREDNISONE 98875514731 No Longer Active Harinder Hernandez DO Active LEVAQUIN 500 MG ORAL TABLET Take 1 tab po daily x 8 days LEVOFLOXACIN 48602882927 No Longer Active Harinder Hernandez DO Active VENTOLIN HFA 108 (90 Base) MCG/ACT INHALATION AEROSOL SOLUTION 2 -4 puffs four times a day PRN ALBUTEROL SULFATE 73830367832 No Longer Active Jeri Sosa LPN Active ACEBUTOLOL HCL 200 MG ORAL CAPSULE 1 cap in the morning and 2 caps in the evening ACEBUTOLOL HCL 69470310444 No Longer Active Harinder Hernandez DO Active CEFDINIR 300 MG ORAL CAPSULE take 1 cap po bid x 10 days CEFDINIR 21743769538 No Longer Active Harinder Hernandez DO Active LOVASTATIN 40 MG ORAL TABLET 1 pill by mouth nightly for cholesterol LOVASTATIN 26206544668 No Longer Active Nettie Newberry APRN Active NITROSTAT 0.4 MG SUBLINGUAL TABLET SUBLINGUAL 1 tab under tongueas needed for chest pain ( may take 3 total, 5 min apart, then call 911) NITROGLYCERIN 85376396592 No Longer Active Nettie Newberry APRN Active POTASSIUM CHLORIDE ER 10 MEQ ORAL CAPSULE EXTENDED RELEASE 1 capsule by mouth daily POTASSIUM CHLORIDE 53510929731 No Longer Active Nettie Newberry APRN Active TESSALON PERLES 100 MG ORAL CAPSULE 1 to 2 tablets by mouth 3 times daily as needed for cough BENZONATATE 88502452921 No Longer Active Nettie Newberry APRN Active PREDNISONE 20 MG ORAL TABLET 2 po qd x 5 days PREDNISONE 99887525213 No Longer Active Jae Morgan MD Active AZITHROMYCIN 250 MG ORAL TABLET 2 po qd x 1 day, then 1 po qd x 4 days 12/30 AZITHROMYCIN 27414505006 No Longer Active Jae Morgan MD Active PREDNISONE 20 MG ORAL TABLET 1 tab twice daily for 3 day, then one daily for three days PREDNISONE 82382908034 No Longer Active Jae Morgan MD Active SINGULAIR 10 MG ORAL TABLET 1 pill by mouth every evening for breathing. 2014 MONTELUKAST SODIUM 45065279835 Active Meenu Alejo LPN Active TYLENOL 325 MG ORAL TABLET 3 by mouth q4h as needed ACETAMINOPHEN 89657548560 Active Harinder Hernandez DO Active POTASSIUM CHLORIDE ER 10 MEQ ORAL TABLET EXTENDED RELEASE take 1 tab po daily POTASSIUM CHLORIDE 27088535604 No Longer Active Harinder Hernandez DO Active PREDNISONE 20 MG ORAL TABLET 1 TID x 2 days, then 1 BID x 3 days, then 1 Daily x 3 days, then stop PREDNISONE 80688720500 No Longer Active Jillina Frazellor MCCRAY Active LEVAQUIN 500 MG ORAL TABLET 1 tablet by mouth daily LEVOFLOXACIN 00902672224 No Longer Active Jillina Frazell LEATHER DRIER Active NEURONTIN 300 MG ORAL CAPSULE 1 cap by mouth three times daily for restless leg GABAPENTIN 64084863945 No Longer Active Harinder Hernandez DO Active BENZONATATE 100 MG ORAL CAPSULE 1 cap po TID PRN BENZONATATE 64857513784 No Longer Active Harinder Hernandez DO Active MONTELUKAST SODIUM 10 MG ORAL TABLET 1 tab po in the evening 2014 MONTELUKAST SODIUM 85720782613 No Longer Active Harinder Hernandez DO Active MUPIROCIN 2 % EXTERNAL OINTMENT apply to affected area BID x 14 days MUPIROCIN 26930343303 No Longer Active Harinder Hernandez DO Active TYLENOL EXTRA STRENGTH 500 MG ORAL TABLET as needed ACETAMINOPHEN 41055531480 No Longer Active Harinder Hernandez DO Active PREDNISONE 10 MG ORAL TABLET 1 tab po daily PREDNISONE 86598962900 No Longer Active Harinder Hernandez DO Active PREDNISONE 20 MG ORAL TABLET 2 tabs daily for 4 days, 1 tab daily for 4 days, 1/2 tab daily for 4 days PREDNISONE 19569448837 No Longer Active Harinder Hernandez DO Active AZITHROMYCIN 250 MG ORAL TABLET 2 po qd x 1 day, then 1 po qd x 4 days 04/06 AZITHROMYCIN 27154669708 No Longer Active Harinder Hernandez DO Active PREDNISONE 20 MG ORAL TABLET 3 tabs today, then 1 tab twice daily for 3 day, then one daily for three days PREDNISONE 51752092552 No Longer Active Harinder Hernandez DO Active NIFEDIAC CC 30 MG ORAL TABLET EXTENDED RELEASE 24 HOUR 1 tablet daily for raynaud's syndrome NIFEDIPINE 19529151466 No Longer Active Tawnya Pardo MA Active AMBIEN 10 MG ORAL TABLET 1/2 tab by mouth at bedtime as needed for sleep 2013 ZOLPIDEM TARTRATE 74388421143 Active Meenu Alejo LPN Active CLONAZEPAM 1 MG ORAL TABLET 1 tablet at bedtime for insomnia and restless legs CLONAZEPAM 66109501405 Active Meenu Alejo LPN Active CLONAZEPAM 0.5 MG ORAL TABLET 1 tab po daily CLONAZEPAM 02180456993 No Longer Active Harinder Hernandez DO Active PREDNISONE 10 MG ORAL TABLET 1 tablet daily for COPD PREDNISONE 56209948440 Active Kortney Mccain Active PROAIR HFA 108 (90 Base) MCG/ACT INHALATION AEROSOL SOLUTION 2 puffs four times a day as needed ALBUTEROL SULFATE 22804625415 Active Harinder Hernandez DO Active FLOVENT HFA 110 MCG/ACT INHALATION AEROSOL 2 puffs inhaled b.i.d. FLUTICASONE PROPIONATE HFA 05390518444 Active Kortney Mccain Active ACIPHEX 20 MG ORAL TABLET DELAYED RELEASE 1 tab po daily RABEPRAZOLE SODIUM 61255323078 Active Meenu Alejo LPN Active CLONAZEPAM 0.5 MG ORAL TABLET 1 tab po daily CLONAZEPAM 0.5 MG ORAL TABLET 776088 CLONAZEPAM Inactive PREDNISONE 20 MG ORAL TABLET 3 tabs today, then 1 tab twice daily for 3 day, then one daily for three days PREDNISONE 20 MG ORAL TABLET 079601 PREDNISONE Inactive PREDNISONE 20 MG ORAL TABLET 2 tabs daily for 4 days, 1 tab daily for 4 days, 1/2 tab daily for 4 days PREDNISONE 20 MG ORAL TABLET 447968 PREDNISONE Inactive PREDNISONE 10 MG ORAL TABLET 1 tab po daily PREDNISONE 10 MG ORAL TABLET 721303 PREDNISONE Inactive TYLENOL EXTRA STRENGTH 500 MG ORAL TABLET as needed TYLENOL EXTRA STRENGTH 500 MG ORAL TABLET 044866 ACETAMINOPHEN Inactive MUPIROCIN 2 % EXTERNAL OINTMENT apply to affected area BID x 14 days MUPIROCIN 2 % EXTERNAL OINTMENT 479404 MUPIROCIN Inactive MONTELUKAST SODIUM 10 MG ORAL TABLET 1 tab po in the evening 2014 MONTELUKAST SODIUM 10 MG ORAL TABLET 978369 MONTELUKAST SODIUM Inactive BENZONATATE 100 MG ORAL CAPSULE 1 cap po TID PRN BENZONATATE 100 MG ORAL CAPSULE 348408 BENZONATATE Inactive NEURONTIN 300 MG ORAL CAPSULE 1 cap by mouth three times daily for restless leg NEURONTIN 300 MG ORAL CAPSULE 342204 GABAPENTIN Inactive LEVAQUIN 500 MG ORAL TABLET 1 tablet by mouth daily LEVAQUIN 500 MG ORAL TABLET 908995 LEVOFLOXACIN Inactive PREDNISONE 20 MG ORAL TABLET 1 TID x 2 days, then 1 BID x 3 days, then 1 Daily x 3 days, then stop PREDNISONE 20 MG ORAL TABLET 687473 PREDNISONE Inactive POTASSIUM CHLORIDE ER 10 MEQ ORAL TABLET EXTENDED RELEASE take 1 tab po daily POTASSIUM CHLORIDE ER 10 MEQ ORAL TABLET EXTENDED RELEASE POTASSIUM CHLORIDE Inactive PREDNISONE 20 MG ORAL TABLET 1 tab twice daily for 3 day, then one daily for three days PREDNISONE 20 MG ORAL TABLET 936428 PREDNISONE Inactive TESSALON PERLES 100 MG ORAL CAPSULE 1 to 2 tablets by mouth 3 times daily as needed for cough TESSALON PERLES 100 MG ORAL CAPSULE 200817 BENZONATATE Inactive POTASSIUM CHLORIDE ER 10 MEQ ORAL CAPSULE EXTENDED RELEASE 1 capsule by mouth daily POTASSIUM CHLORIDE ER 10 MEQ ORAL CAPSULE EXTENDED RELEASE POTASSIUM CHLORIDE Inactive NITROSTAT 0.4 MG SUBLINGUAL TABLET SUBLINGUAL 1 tab under tongueas needed for chest pain ( may take 3 total, 5 min apart, then call 911) NITROSTAT 0.4 MG SUBLINGUAL TABLET SUBLINGUAL 045567 NITROGLYCERIN Inactive LOVASTATIN 40 MG ORAL TABLET 1 pill by mouth nightly for cholesterol LOVASTATIN 40 MG ORAL TABLET 323260 LOVASTATIN Inactive CEFDINIR 300 MG ORAL CAPSULE take 1 cap po bid x 10 days CEFDINIR 300 MG ORAL CAPSULE 151177 CEFDINIR Inactive ACEBUTOLOL HCL 200 MG ORAL CAPSULE 1 cap in the morning and 2 caps in the evening ACEBUTOLOL HCL 200 MG ORAL CAPSULE 542255 ACEBUTOLOL HCL Inactive VENTOLIN HFA 108 (90 Base) MCG/ACT INHALATION AEROSOL SOLUTION 2 -4 puffs four times a day PRN VENTOLIN HFA 108 (90 Base) MCG/ ACT INHALATION AEROSOL SOLUTION ALBUTEROL SULFATE Inactive LEVAQUIN 500 MG ORAL TABLET Take 1 tab po daily x 8 days LEVAQUIN 500 MG ORAL TABLET 014708 LEVOFLOXACIN Inactive PREDNISONE 20 MG ORAL TABLET 2 tabs daily for 4 days, 1 tab daily for 4 days, 1/2 tab daily for 4 days PREDNISONE 20 MG ORAL TABLET 617836 PREDNISONE Inactive LOVASTATIN 40 MG ORAL TABLET Take 1 tab po every hs LOVASTATIN 40 MG ORAL TABLET 784298 LOVASTATIN Inactive DILAUDID 2 MG ORAL TABLET Take 1/2 tab po every 4 hours as needed for pain DILAUDID 2 MG ORAL TABLET 846497 HYDROMORPHONE HCL Inactive AMITRIPTYLINE HCL 25 MG ORAL TABLET 1 q hs prn AMITRIPTYLINE HCL 25 MG ORAL TABLET 444955 AMITRIPTYLINE HCL Inactive MECLIZINE HCL 25 MG ORAL TABLET 1 tablet three times daily for 3 days, then 1/ 2 tab three times daily for 3 days. MECLIZINE HCL 25 MG ORAL TABLET 085387 MECLIZINE HCL Inactive AMLODIPINE BESYLATE 5 MG ORAL TABLET Take 1 tab po daily AMLODIPINE BESYLATE 5 MG ORAL TABLET 421277 AMLODIPINE BESYLATE Inactive TOPIRAMATE 25 MG ORAL TABLET 1 tab po BID TOPIRAMATE 25 MG ORAL TABLET 307587 TOPIRAMATE Inactive PREDNISONE 20 MG ORAL TABLET 1 tablet twice daily for 2 days, then 1 tablet once daily for 2 days PREDNISONE 20 MG ORAL TABLET 279613 PREDNISONE Inactive PREDNISONE 20 MG ORAL TABLET 1 tab twice daily for 3 day, then one daily for three days PREDNISONE 20 MG ORAL TABLET 990246 PREDNISONE Inactive NIFEDIPINE ER 30 MG ORAL TABLET EXTENDED RELEASE 24 HOUR 1 daily NIFEDIPINE ER 30 MG ORAL TABLET EXTENDED RELEASE 24 HOUR NIFEDIPINE Inactive AMLODIPINE BESYLATE 5 MG ORAL TABLET 1 tablet by mouth daily 2016 AMLODIPINE BESYLATE 5 MG ORAL TABLET 402425 AMLODIPINE BESYLATE Inactive LASIX 20 MG ORAL TABLET 1 tablet by mouth every morning LASIX 20 MG ORAL TABLET 928077 FUROSEMIDE Inactive POTASSIUM CHLORIDE ER 10 MEQ ORAL CAPSULE EXTENDED RELEASE 1 capsule BID 2016 POTASSIUM CHLORIDE ER 10 MEQ ORAL CAPSULE EXTENDED RELEASE POTASSIUM CHLORIDE Inactive POTASSIUM CHLORIDE 20 MEQ ORAL PACKET 1 tab po q day POTASSIUM CHLORIDE 20 MEQ ORAL PACKET 6585630 POTASSIUM CHLORIDE Inactive PREDNISONE 20 MG ORAL TABLET 2 tablets by mouth today, then 1 tablet by mouth days 2-3 PREDNISONE 20 MG ORAL TABLET 412662 PREDNISONE Inactive SPIRONOLACTONE 25 MG ORAL TABLET 1 tablet by mouth daily SPIRONOLACTONE 25 MG ORAL TABLET 815225 SPIRONOLACTONE Inactive AZITHROMYCIN 250 MG ORAL TABLET 2 po qd x 1 day, then 1 po qd x 4 days 04/06 AZITHROMYCIN 250 MG ORAL TABLET 901534 AZITHROMYCIN Inactive AZITHROMYCIN 250 MG ORAL TABLET 2 po qd x 1 day, then 1 po qd x 4 days 12/30 AZITHROMYCIN 250 MG ORAL TABLET 280527 AZITHROMYCIN Inactive PREDNISONE 20 MG ORAL TABLET 2 po qd x 5 days PREDNISONE 20 MG ORAL TABLET 779876 PREDNISONE Inactive Vital Signs Date Name Value [...] Panel - Chemistry sodium, serum 140 mmol/L 083-967 0834/07/13 potassium, serum 3.2 mmol/L 3.5-5.2 chloride, serum 103 mmol/L 98-107 carbon dioxide, venous blood 26.9 mmol/L 21.0-32.0 blood glucose 93 mg/dL 65-110 calcium, serum 9.2 mg/dL 8.5-10.1 urea nitrogen, blood 13 mg/dL 7-18 creatinine, serum 0.84 mg/dL 0.60-1.30 sodium, serum 140 mmol/L 327-307 5387/08/21 potassium, serum 3.8 mmol/L 3.5-5.2 chloride, serum [...] ... - Chemistry sodium, serum 141 mmol/L 143-670 1577/08/07 carbon dioxide, venous blood 34.0 mmol/L 21.0-32.0 [...] 1.40 mg/dL 0.00-1.00 cholesterol, serum 192 mg/dL 963-168 2619/10/19 triglyceride, serum, fasting 71 mg/dL 30-200 HDL cholesterol, serum 72 mg/dL 32-60 LDL cholesterol, serum 106 mg/dL 0-130 Lab Report: Rapid Strep - Lab Microbial identification kit, rapid strep method Negative Negative Lab Report: THEOPHYLLINE - Toxicology theophylline level, serum 3.1 ug/mL 10.0-20.0 Encounters Code Encounter Date Provider Facility CPT-72050 Level 4 Est. Patient 10:17:51 [employer]GENCY [employer]PERVIS[employer] Harinder Cr [facility] CPT-83457 Level 3 Est. Patient 12:36:15 EMERGENCY CREW SUPERVISOR Harinder Cr [facility] CPT-54195 Level 3 Est. Patient 15:14:45 EMERGENCY CREW SUPERVISOR Harinder Cr [facility] CPT-59286 Level 4 Est. Patient 14:45:25 CDT Harinder Cr [facility] CPT-03977 Level 4 Est. Patient 09:15:13 CDT Harinder Cr [facility] CPT-02403 Level 3 Est. Patient 11:51:58 CDT Harinder Cr [facility] CPT-79192 Level 3 Est. Patient 11:30:05 CDT Harinder Cr [facility] CPT-97392 Level 4 Est. Patient 10:19:23 CDT Harinder Cr [facility] CPT-35292 Level 3 Est. Patient 09:58:58 CDT Harinder Cr [facility] CPT-79269 Level 3 Est. Patient 12:37:21 CDT Harinder rC [facility] CPT-36276 Level 3 Est. Patient 18:37:17 CDT Harinder Hernandez [facility] CPT-28215 Level 4 Est. Patient 11:15:54 CDT Nettie Rohith [facility] CPT-88453 Level 3 Est. Patient 16:42:24 CDT Harinder Hernandez [facility] CPT-60101 Level 3 Est. Patient 15:03:36 CDT Harinder Hernandez [facility] CPT-78644 Level 3 Est. Patient 15:03:20 CDT Harinder Hernandez [facility] CPT-87875 Level 3 Est. Patient 12:14:34 CDT Harinder Hernandez [facility] CPT-63637 Level 3 Est. Patient 13:47:15 CDT Harinder Hernandez [facility] CPT-50754 Level 3 Est. Patient 14:08:24 CDT Harinder Hernandez [facility] CPT-42373 Level 3 Est. Patient 10:07:15 CDT Harinder Hernandez [facility] CPT-92488 Level 3 Est. Patient 10:06:59 CDT Harinder Cr [facility] CPT-89914 Level 3 Est. Patient 15:53:29 CDT Jae Morgan MD [facility] CPT-72682 Level 3 Est. Patient 17:19:04 CDT Harinder Shaye [facility] CPT-18139 Level 3 Est. Patient 11:13:01 CDT Harinder Cr [facility] CPT-31450 Level 3 Est. Patient 09:03:58 CDT Harinder Hernandez [facility] CPT-11732 Level 3 Est. Patient 14:46:45 EMERGENCY CREW SUPERVISOR Harinder Cr [facility] CPT-54220 Level 3 Est. Patient 09:35:49 EMERGENCY CREW SUPERVISOR Harinder Hernandez [facility] CPT-41163 Level 3 Est. Patient 09:29:37 EMERGENCY CREW SUPERVISOR Harinder Hernandez [facility] CPT-56190 Level 3 Est. Patient 15:51:07 CDT Harinder Hernandez [facility] CPT-75904 Level 3 Est. Patient 18:13:13 CDT Harinder Hernandez [facility] CPT-54706 Level 3 Est. Patient 10:44:19 CDT Harinder Hernandez [facility] CPT-04035 Level 4 Est. Patient 10:07:19 EMERGENCY CREW SUPERVISOR Harinder Hernandez [facility] CPT-00017 Level 3 Est. Patient 15:59:32 EMERGENCY CREW SUPERVISOR Harinder Hernandez [facility] Procedures Code Procedure Name Date Entry Date Standard Description CPT-G0009 Administration of Pneumococcal Vaccine 10:33:25 EMERGENCY [employer]W SUPERVISOR CPT-32953 Pneumovax 23 Injection Injectable 25 MCG/0.5ML 10:33:25 EMERGENCY [employer]W SUPERVISOR CPT-61551 First Vx - Ix admin for Medicare patients 10:33:25 EMERGENCY CREW SUPERVISOR CPT-63684 Fluzone Quadrivalent Intramuscular Suspension 0.5 ML 10: 33:25 EMERGENCY CREW SUPERVISOR CPT-Cryo Cryotherapy 10:17:51 EMERGENCY CREW SUPERVISOR CPT-G0438 Initial Annual Wellness Exam 10:08:59 EMERGENCY [employer]W SUPERVISOR CPT-60915 Abd compl w upright - XRAY USE ONLY 14:48:09 CDT 02/18 CPT-30342 Port a cath flush 13:46:05 CDT CPT-53766 Hip, complete, 2-3 views - XRAY USE ONLY 10:28:40 CDT CPT-56232 BMP - LAB USE ONLY 16:45:09 EMERGENCY CREW SUPERVISOR CPT-53153 Port a cath flush 12:00:13 EMERGENCY CREW SUPERVISOR CPT-TCMM Transitional Care Mgmt-Moderate 11:20:16 EMERGENCY CREW SUPERVISOR CPT-13986 First Vx - Ix admin for Medicare patients 17:35:15 CDT CPT-79606 Fluzone Preservative Free Intramuscular Suspension 17:35 :15 CDT CPT-59390 Microalbumin - LAB USE ONLY 11:52:05 CDT CPT-TCMM Transitional Care Mgmt-Moderate 11:33:57 CDT CPT-99921 No Charge Offi Visit 14:11:29 CDT CPT-92442 Magnesium - LAB USE ONLY 10:45:44 CDT CPT-07893 Lipid - LAB USE ONLY 10:45:44 CDT CPT-57635 CBC - LAB USE ONLY 10:45:44 CDT CPT-44501 Venipuncture Draw Fee 10:45:43 CDT CPT-48470 Venipuncture Draw Fee 18:21:27 CDT CPT-JTINJ Asp/Joint Injection 18:38:04 CDT CPT-70642 Immunization Each Additional Inj 17:38:04 CDT CPT-26995 Immunization Single Admin 17:38:04 CDT CPT-71926 Prevnar 13 17:38:04 CDT CPT-83205 Fluzone Quadrivalent preservative free (>=3yrs.) 17:38: 04 CDT CPT-40989 No Charge Offi Visit 11:14:03 CDT CPT-57287 Chest 2V Frontal and Lat 14:00:18 CDT CPT-OV Office Visit 16:10:28 CDT CPT-JTINJ Asp/Joint Injection 09:03:57 CDT CPT-Cryo Cryotherapy 09:35:49 EMERGENCY CREW SUPERVISOR CPT-JTINJ Asp/Joint Injection 09:34:45 EMERGENCY CREW SUPERVISOR CPT-J2930 Solu Medrol 125 mg (Methyl Prednisolone Sodium Succinate) 20:37:27 CDT CPT-58997 Abx/Therapy Injection 20:37:27 CDT CPT-27956 Port a cath flush 08:15:51 CDT CPT-11419 Port a cath flush 09:54:16 CDT CPT-00199 Port a cath flush 09:38:02 CDT CPT-92171 Port a cath flush 11:00:27 EMERGENCY CREW SUPERVISOR
[2017-12-29] MEDS ORDERED: LORazepam INJ 2 MG/ML (ATIVAN) VIAL IVP ONE (00:15)
--- OUTSIDE RECORDS SUMMARY | 2017-12-29 00:15 | XMS REPORT | Clinical Summary ---
Author Author Admin, [facility] Address Unknown Phone Unavailable Allergies, Adverse Reactions, [...] , unspecified Raynaud's syndrome 443.0 Active Harinder Hernandze DO Raynaud's syndrome Sacroiliitis, right 720.2 Resolved Harinder Hernandez DO Sacroiliitis, not elsewhere classified Preventive health care V70.0 Active Harinder Henrandez DO Routine general medical examination at a [...] (generalized) CVA with right hemiparesis 438.20 Active Harnider Cr David DO Hemiplegia affecting unspecified side [...] vaccination for influenza ICD-V04.81 Inactive Harinder Cr Dvaid DO Need for prophylactic vaccination against streptococcus pneumoniae ( Pneumococcus) ICD-V03.82 Inactive Harinder Hernandez DO Greater trochanteric bursitis, left ICD-726.5 Inactive Harinder Cr David Medication List Medication Instructions Start Date Stop Date Generic Name NDC Status Provider Patient Instruction POTASSIUM CHLORIDE 20 MEQ ORAL PACK Take 1 tablet by mouth daily POTASSIUM CHLORIDE 75142883123 Active Ciera Pimentel Active ALBUTEROL SULFATE 0.083 % NEBU SOLN 1 vial neb q 4hrs PRN Wheezing ALBUTEROL SULFATE 36610659657 Active Harinder Hernandez DO Active FLOVENT HFA 110 MCG/ACT AERO 2 puffs inhaled b.i.d. FLUTICASONE PROPIONATE HFA 06126657331 Active Harinder Hernandez DO Active POTASSIUM CHLORIDE CR 10 MEQ CPCR 1 capsule by mouth daily POTASSIUM CHLORIDE 82763852443 Active Harinder Hernandez DO Active EPIPEN 2-BRUNA 0.3 MG/0.3ML INJ SOAJ 1 INJ NEEDED EPINEPHRINE 13226481520 Active Tawnya Pardo MA Active PREDNISONE 20 MG TAB 1 tab twice daily for 3 day, then one daily for three days PREDNISONE 68745276044 No Longer Active Harinder Hernandez DO Active PREDNISONE 20 MG TAB 1 tablet twice daily for 2 days, then 1 tablet once daily for 2 days PREDNISONE 40356300219 No Longer Active Harinder Hernandez DO Active ASMANEX 120 METERED DOSES 220 MCG/INH INH AEPB 2 puffs orally twice daily MOMETASONE FUROATE 95315622130 Active Jeri Sosa RPT,RMA Active NIFEDIPINE ER 30 MG ORAL [id number] 1 daily NIFEDIPINE 56873710895 Active Harinder Hernandez DO Active TOPIRAMATE 25 MG TABS 1 tab po BID TOPIRAMATE 52261092328 No Longer Active Nettie Newberry APRN Active AMLODIPINE BESYLATE 5 MG ORAL TABS Take 1 tab po daily AMLODIPINE BESYLATE 13202689945 No Longer Active Nettie Newberry APRN Active MECLIZINE HCL 25 MG TAB 1 tablet three times daily for 3 days, then 1/2 tab three times daily for 3 days. MECLIZINE HCL 38101813442 No Longer Active Nettieog Newberry APRN Active AMITRIPTYLINE HCL 25 MG ORAL TABS 1 q hs prn AMITRIPTYLINE HCL 53282558342 No Longer Active Nettieog Newberry APRN Active DILAUDID 2 MG ORAL TABS Take 1/2 tab po every 4 hours as needed for pain 2014 HYDROMORPHONE HCL 34175065315 No Longer Active Nettie Newberry APRN Active CLOPIDOGREL BISULFATE 75 MG ORAL TABS 1 tab by mouth once daily CLOPIDOGREL BISULFATE 69800207490 Active Tawnya Pardo MA Active ATORVASTATIN CALCIUM 10 MG ORAL TABS 1 at bedtime ATORVASTATIN CALCIUM 52262016497 Active Tawnya Pardo MA Active LOVASTATIN 40 MG ORAL TABS Take 1 tab po every hs LOVASTATIN 66159644899 No Longer Active Harinder Hernandez DO Active PREDNISONE 20 MG TAB 2 tabs daily for 4 days, 1 tab daily for 4 days, 1/2 tab daily for 4 days PREDNISONE 38328154501 No Longer Active Harinder Hernandez DO Active LEVAQUIN 500 MG ORAL TABS Take 1 tab po daily x 8 days LEVOFLOXACIN 40460225896 No Longer Active Harinder Hernandez DO Active VENTOLIN HFA 108 (90 BASE) MCG/ACT AERS 2 -4 puffs four times a day PRN 2013 ALBUTEROL SULFATE 99257192379 No Longer Active Jeri Sosa RPT,RMA Active ACEBUTOLOL HCL 200 MG CAPS 1 cap in the morning and 2 caps in the evening ACEBUTOLOL HCL 99843387522 No Longer Active Harinder Hernandez DO Active CEFDINIR 300 MG ORAL CAPS take 1 cap po bid x 10 days CEFDINIR 89738046183 No Longer Active Harinder Hernandez DO Active LOVASTATIN 40 MG TABS 1 pill by mouth nightly for cholesterol LOVASTATIN 70259729018 No Longer Active Nettie Newberry APRN Active NITROSTAT 0.4 MG SUBL 1 tab under tongueas needed for chest pain ( may take 3 total, 5 min apart, then call 911) NITROGLYCERIN 13566045191 No Longer Active Nettie Newberry APRN Active POTASSIUM CHLORIDE CR 10 MEQ CPCR 1 capsule by mouth daily 02/14 POTASSIUM CHLORIDE 56446893026 No Longer Active Nettie Newberry APRN Active TESSALON PERLES 100 MG CAP 1 to 2 tablets by mouth 3 times daily as needed for cough BENZONATATE 84032575880 No Longer Active Nettie Newberry APRN Active THEOPHYLLINE ER 200 MG ORAL [id number] Take 1 tab every 12 hours THEOPHYLLINE 78220895367 Active Tawnya Pardo MA Active PREDNISONE 20 MG TAB 2 po qd x 5 days PREDNISONE 49674662540 No Longer Active Jae Morgan MD Active AZITHROMYCIN 250 MG TABS 2 po qd x 1 day, then 1 po qd x 4 days AZITHROMYCIN 20054130264 No Longer Active Jae Morgan MD Active PREDNISONE 20 MG TAB 1 tab twice daily for 3 day, then one daily for three days PREDNISONE 19661620507 No Longer Active Jae Morgan MD Active SINGULAIR 10 MG TABS 1 pill by mouth every evening for breathing. MONTELUKAST SODIUM 53617282172 Active Tawnya Pardo MA Active TYLENOL 325 MG TAB 3 by mouth q4h as needed ACETAMINOPHEN 82623219440 Active Harinder Hernandez DO Active POTASSIUM CHLORIDE ER 10 MEQ CR-TABS take 1 tab po daily POTASSIUM CHLORIDE 12301732580 No Longer Active Harinder Hernandez DO Active PREDNISONE 20 MG TAB 1 TID x 2 days, then 1 BID x 3 days, then 1 Daily x 3 days, then stop PREDNISONE 53203934371 No Longer Active John Montemayor APRN Active LEVAQUIN 500 MG TAB 1 tablet by mouth daily LEVOFLOXACIN 89388048840 No Longer Active John Montemayor APRN Active NEURONTIN 300 MG CAP 1 cap by mouth three times daily for restless leg 06/22 GABAPENTIN 22011727036 No Longer Active Harinedr Hernandez DO Active BENZONATATE 100 MG CAPS 1 cap po TID PRN BENZONATATE 45763032083 No Longer Active Harinder Hernandez DO Active MONTELUKAST SODIUM 10 MG TABS 1 tab po in the evening MONTELUKAST SODIUM 06300803346 No Longer Active Harinder Hernandez DO Active MUPIROCIN 2 % OINT apply to affected area BID x 14 days MUPIROCIN 17099474835 No Longer Active Harinder Hernandez DO Active TYLENOL EXTRA STRENGTH 500 MG TABS as needed ACETAMINOPHEN 91639885834 No Longer Active Harinder Hernandez DO Active PREDNISONE 10 MG TABS 1 tab po daily PREDNISONE 95972892977 No Longer Active Harinder Hernandez DO Active PREDNISONE 20 MG TAB 2 tabs daily for 4 days, 1 tab daily for 4 days, 1/2 tab daily for 4 days PREDNISONE 05656821039 No Longer Active Harinder Hernandez DO Active AZITHROMYCIN 250 MG TABS 2 po qd x 1 day, then 1 po qd x 4 days AZITHROMYCIN 34650244003 No Longer Active Harinder Hernandez DO Active PREDNISONE 20 MG TAB 3 tabs today, then 1 tab twice daily for 3 day, then one daily for three days PREDNISONE 51479126208 No Longer Active Harinder Hernandez DO Active NIFEDIAC CC 30 MG [id number] 1 tablet daily for raynaud's syndrome NIFEDIPINE 83503982901 No Longer Active Tawnya Pardo MA Active AMBIEN 10 MG TAB 1/2 tab by mouth at bedtime as needed for sleep ZOLPIDEM TARTRATE 12314728072 Active Harinder Hernandez DO Active CLONAZEPAM 1 MG TABS 1 tablet at bedtime for insomnia and restless legs 09/14 CLONAZEPAM 87522600468 Active Harinder Hernandez DO Active CLONAZEPAM 0.5 MG TABS 1 tab po daily CLONAZEPAM 69300960848 No Longer Active Harinder Hernandez DO Active PREDNISONE 10 MG TAB 1 tablet daily for COPD PREDNISONE 40235719847 Active Tawnya Pardo MA Active PROAIR HFA 108 (90 BASE) MCG/ACT AERS 2 puffs four times a day as needed 2012 ALBUTEROL SULFATE 94998805581 Active Tawnya Pardo MA Active FLOVENT HFA 110 MCG/ACT AERO 2 puffs inhaled b.i.d. FLUTICASONE PROPIONATE HFA 21959770615 Active Tawnya Pardo MA Active ACIPHEX 20 MG TBEC 1 tab po daily RABEPRAZOLE SODIUM 61563193946 Active Kaylah Newberry Active CLONAZEPAM 0.5 MG TABS 1 tab po daily CLONAZEPAM 0.5 MG TABS 307204 CLONAZEPAM Inactive PREDNISONE 20 MG TAB 3 tabs today, then 1 tab twice daily for 3 day, then one daily for three days PREDNISONE 20 MG TAB 131873 PREDNISONE Inactive PREDNISONE 20 MG TAB 2 tabs daily for 4 days, 1 tab daily for 4 days, 1/2 tab daily for 4 days PREDNISONE 20 MG TAB 864365 PREDNISONE Inactive PREDNISONE 10 MG TABS 1 tab po daily PREDNISONE 10 MG TABS 204306 PREDNISONE Inactive TYLENOL EXTRA STRENGTH 500 MG TABS as needed TYLENOL EXTRA STRENGTH 500 MG TABS 422253 ACETAMINOPHEN Inactive MUPIROCIN 2 % OINT apply to affected area BID x 14 days MUPIROCIN 2 % OINT 279545 MUPIROCIN Inactive MONTELUKAST SODIUM 10 MG TABS 1 tab po in the evening MONTELUKAST SODIUM 10 MG TABS 20010818 MONTELUKAST SODIUM Inactive BENZONATATE 100 MG CAPS 1 cap po TID PRN BENZONATATE 100 MG CAPS 617260 BENZONATATE Inactive NEURONTIN 300 MG CAP 1 cap by mouth three times daily for restless leg 06/22 NEURONTIN 300 MG CAP 316806 GABAPENTIN Inactive LEVAQUIN 500 MG TAB 1 tablet by mouth daily LEVAQUIN 500 MG TAB 446305 LEVOFLOXACIN Inactive PREDNISONE 20 MG TAB 1 TID x 2 days, then 1 BID x 3 days, then 1 Daily x 3 days, then stop PREDNISONE 20 MG TAB 734557 PREDNISONE Inactive POTASSIUM CHLORIDE ER 10 MEQ CR-TABS take 1 tab po daily POTASSIUM CHLORIDE ER 10 MEQ CR-TABS POTASSIUM CHLORIDE Inactive PREDNISONE 20 MG TAB 1 tab twice daily for 3 day, then one daily for three days PREDNISONE 20 MG TAB 986627 PREDNISONE Inactive TESSALON PERLES 100 MG CAP 1 to 2 tablets by mouth 3 times daily as needed for cough TESSALON PERLES 100 MG CAP 676686 BENZONATATE Inactive POTASSIUM CHLORIDE CR 10 MEQ CPCR 1 capsule by mouth daily 02/14 POTASSIUM CHLORIDE CR 10 MEQ CPCR POTASSIUM CHLORIDE Inactive NITROSTAT 0.4 MG SUBL 1 tab under tongueas needed for chest pain ( may take 3 total, 5 min apart, then call 911) NITROSTAT 0.4 MG SUBL 801466 NITROGLYCERIN Inactive LOVASTATIN 40 MG TABS 1 pill by mouth nightly for cholesterol LOVASTATIN 40 MG TABS 275723 LOVASTATIN Inactive CEFDINIR 300 MG ORAL CAPS take 1 cap po bid x 10 days CEFDINIR 300 MG ORAL CAPS 932866 CEFDINIR Inactive ACEBUTOLOL HCL 200 MG CAPS 1 cap in the morning and 2 caps in the evening ACEBUTOLOL HCL 200 MG CAPS 505794 ACEBUTOLOL HCL Inactive VENTOLIN HFA 108 (90 BASE) MCG/ACT AERS 2 -4 puffs four times a day PRN 2013 VENTOLIN HFA 108 (90 BASE) MCG/ACT AERS ALBUTEROL SULFATE Inactive LEVAQUIN 500 MG ORAL TABS Take 1 tab po daily x 8 days LEVAQUIN 500 MG ORAL TABS 628891 LEVOFLOXACIN Inactive PREDNISONE 20 MG TAB 2 tabs daily for 4 days, 1 tab daily for 4 days, 1/2 tab daily for 4 days PREDNISONE 20 MG TAB 465040 PREDNISONE Inactive LOVASTATIN 40 MG ORAL TABS Take 1 tab po every hs LOVASTATIN 40 MG ORAL TABS 745819 LOVASTATIN Inactive DILAUDID 2 MG ORAL TABS Take 1/2 tab po every 4 hours as needed for pain 2014 DILAUDID 2 MG ORAL TABS 494631 HYDROMORPHONE HCL Inactive AMITRIPTYLINE HCL 25 MG ORAL TABS 1 q hs prn AMITRIPTYLINE HCL 25 MG ORAL TABS 942863 AMITRIPTYLINE HCL Inactive MECLIZINE HCL 25 MG TAB 1 tablet three times daily for 3 days, then 1/2 tab three times daily for 3 days. MECLIZINE HCL 25 MG TAB 896629 MECLIZINE HCL Inactive AMLODIPINE BESYLATE 5 MG ORAL TABS Take 1 tab po daily AMLODIPINE BESYLATE 5 MG ORAL TABS 674443 AMLODIPINE BESYLATE Inactive TOPIRAMATE 25 MG TABS 1 tab po BID TOPIRAMATE 25 MG TABS 772827 TOPIRAMATE Inactive PREDNISONE 20 MG TAB 1 tablet twice daily for 2 days, then 1 tablet once daily for 2 days PREDNISONE 20 MG TAB 722193 PREDNISONE Inactive PREDNISONE 20 MG TAB 1 tab twice daily for 3 day, then one daily for three days PREDNISONE 20 MG TAB 102476 PREDNISONE Inactive AZITHROMYCIN 250 MG TABS 2 po qd x 1 day, then 1 po qd x 4 days AZITHROMYCIN 250 MG TABS 1487261 AZITHROMYCIN Inactive AZITHROMYCIN 250 MG TABS 2 po qd x 1 day, then 1 po qd x 4 days AZITHROMYCIN 250 MG TABS 8021107 AZITHROMYCIN Inactive PREDNISONE 20 MG TAB 2 po qd x 5 days PREDNISONE 20 MG TAB 002339 PREDNISONE Inactive Vital Signs Date Name Value [...] Panel - Chemistry sodium, serum 137 mmol/L 449-545 4296/01/03 potassium, serum 3.4 mmol/L 3.5-5.2 chloride, serum [...] Magnesium - Chemistry cholesterol, serum 180 mg/dL 191-599 1617/08/08 triglyceride, serum, fasting 92 mg/dL 30-200 HDL cholesterol, serum 66 mg/dL 32-96 LDL cholesterol, serum 96 mg/dL 0-130 sodium, serum 142 mmol/L 325-749 0760/08/08 carbon dioxide, venous blood 27.4 mmol/L 21.0-32.0 [...] 10.0-20.0 Encounters Code Encounter Date Provider Facility CPT-85778 Level 3 Est. Patient 09:58:58 CDT Harinder Cr [facility] CPT-91057 Level 3 Est. Patient 12:37:21 CDT Harinder Cr [facility] CPT-26387 Level 3 Est. Patient 18:37:17 CDT Harinder Cr [facility] CPT-78123 Level 4 Est. Patient 11:15:54 CDT Nettie Newberry [facility] CL[facility] CPT-32091 Level 3 Est. Patient 16:42:24 CDT Harinder Cr [facility] CPT-38181 Level 3 Est. Patient 15:03:36 CDT Harinder Cr [facility] CPT-20806 Level 3 Est. Patient 15:03:20 CDT Harinder Cr [facility] CPT-96811 Level 3 Est. Patient 12:14:[address] [facility] CPT-37652 Level 3 Est. Patient 13:47:15 CDT Harinder Hernandez [facility] CPT-04900 Level 3 Est. Patient 14:08:24 CDT Harinder Hernandez [facility] CPT-72074 Level 3 Est. Patient 10:07:15 CDT Harinder Hernandez [facility] CPT-17689 Level 3 Est. Patient 10:06:59 CDT Harinder Hernandez [facility] CPT-08211 Level 3 Est. Patient 15:53:29 CDT Jae Morgan [facility] CPT-39714 Level 3 Est. Patient 17:19:04 CDT Harinder Hernandez [facility] CPT-04399 Level 3 Est. Patient 11:13:01 CDT Harinder Hernandez [facility] CPT-32433 Level 3 Est. Patient 09:03:58 CDT Harinder Hernandez [facility] CPT-05744 Level 3 Est. Patient 14:46:45 [employer] DRESSMAKER Harinder Hernandez [facility] CPT-30064 Level 3 Est. Patient 09:35:49 [employer] DRESSMAKER Harinder Hernandez [facility] CPT-05133 Level 3 Est. Patient 09:29:37 [employer]ATIONS DRESSMAKER Harinder Hernandez [facility] CPT-00205 Level 3 Est. Patient 15:51:07 CDT Harinder Hernandez [facility] CPT-45859 Level 3 Est. Patient 18:13:13 CDT Harinder Hernandez [facility] CPT-44807 Level 3 Est. Patient 10:44:19 CDT Harinder Hernandez [facility] CPT-77365 Level 4 Est. Patient 10:07:19 C[employer]URE ALTERATIONS DRESSMAKER Harinder Shaye David [facility] CPT-31249 Level 3 Est. Patient 15:59:32 [employer] DRESSMAKER Harinder W David [facility] Procedures Code Procedure Name Date Entry Date Standard Description CPT-43382 BMP - LAB USE ONLY 16:45:09 [employer] DRESSMAKER CPT-14148 Port a cath flush 12:00:13 [employer]URE [employer] DRESSMAKER CPT-TCMM Transitional Care Mgmt-Moderate 11:20:16 C[employer]URE [employer]ATIONS DRESSMAKER CPT-88552 First Vx - Ix admin for Medicare patients 17:35:15 CDT CPT-93487 Fluzone Preservative Free Intramuscular Suspension 17:35 :15 CDT CPT-67256 Microalbumin - LAB USE ONLY 11:52:05 CDT CPT-TCMM Transitional Care Mgmt-Moderate 11:33:57 CDT CPT-31021 No Charge Offi Visit 14:11:29 CDT CPT-51447 Magnesium - LAB USE ONLY 10:45:44 CDT CPT-72771 Lipid - LAB USE ONLY 10:45:44 CDT CPT-61640 CBC - LAB USE ONLY 10:45:44 CDT CPT-91100 Venipuncture Draw Fee 10:45:43 CDT CPT-82818 Venipuncture Draw Fee 18:21:27 CDT CPT-JTINJ Asp/Joint Injection 18:38:04 CDT CPT-90286 Immunization Each Additional Inj 17:38:04 CDT CPT-55168 Immunization Single Admin 17:38:04 CDT CPT-31862 Prevnar 13 17:38:04 CDT CPT-04785 Fluzone Quadrivalent preservative free (>=3yrs.) 17:38: 04 CDT CPT-40418 No Charge Offi Visit 11:14:03 CDT CPT-44516 Chest 2V Frontal and Lat 14:00:18 CDT CPT-OV Office Visit 16:10:28 CDT CPT-JTINJ Asp/Joint Injection 09:03:57 CDT CPT-Cryo Cryotherapy 09:35:49 [employer] DRESSMAKER CPT-JTINJ Asp/Joint Injection 09:34:45 [employer]URE [employer]ATIONS DRESSMAKER CPT-J2930 Solu Medrol 125 mg (Methyl Prednisolone Sodium Succinate) 20:37:27 CDT CPT-61666 Abx/Therapy Injection 20:37:27 CDT CPT-98241 Port a cath flush 08:15:51 CDT CPT-98159 Port a cath flush 09:54:16 CDT CPT-36844 Port a cath flush 09:38:02 CDT CPT-36673 Port a cath flush 11:00:27 C[employer]URE [employer]TERATIONS DRESSMAKER
--- OUTSIDE RECORDS SUMMARY | 2017-12-29 00:16 | XMS REPORT | Clinical Summary ---
Author Author Admin, QIE Organization [facility] Address Unknown Phone Unavailable Allergies, Adverse Reactions, [...] Active Harinder Hernandez DO SULFA Critical Active Harinedr Hernandez DO PCN Critical Active Harinder Hernandez [...] Needs vaccination for influenza V04.81 Resolved Harinder rC David DO Need for prophylactic vaccination and [...] unspecified site U R I 465.9 Resolved Harnider Hernandez DO Acute upper respiratory infections of unspecified site Gastroenteritis, viral, acute 008.8 Resolved Harinder Hernandez DO Intestinal infection due to other organism, not elsewhere classified Weakness 780.79 Active Jeri Nieto Other malaise and fatigue Wellness exam V70.0 Active Harinder Hernandez DO Routine general medical examination at a health care facility Menopause, surgical 627.4 Active Roxanne He LRT Symptomatic states associated with artificial menopause Breast mass, right ICD-611.72 Inactive Harinder Hernandez DO Encounter for fitting and adjustment of vascular catheter ICD-V58.81 Inactive Harinder Hernandez DO Back pain, lumbar ICD-724.2 Inactive Harinder Hernandez DO Insomnia ICD-780.52 Inactive Harindre W David DO Raynaud's syndrome ICD-443.0 Inactive Kortney Mccain Sacroiliitis, right ICD-720.2 Inactive Harinder W David DO Biceps tendinitis, left ICD-726.12 Inactive [...] Generic Name NDC Status Provider Patient Instruction SUPER CALCIUM 600 + D3 TABLET CALCIUM CARBONATE-VITAMIN D TABS 67032492709 Active Meenu Alejo LPN Active SPIRONOLACTONE 25 MG ORAL TABLET 1 tablet by mouth daily SPIRONOLACTONE 29344629865 No Longer Active Jeri Nieto Active PREDNISONE 20 MG ORAL TABLET 2 tablets by mouth today, then 1 tablet by mouth days 2-3 PREDNISONE 72364703652 No Longer Active Jeri Nieto Active NITROSTAT 0.4 MG SUBLINGUAL TABLET SUBLINGUAL 1 tab SL q5min PRN chest pain NITROGLYCERIN 81633111437 Active Meenu Alejo LPN Active THEOPHYLLINE ER 300 MG ORAL TABLET EXTENDED RELEASE 12 HOUR 1 po BID THEOPHYLLINE 13154530166 Active Kortney Mccain Active POTASSIUM CHLORIDE ER 20 MEQ ORAL TABLET EXTENDED RELEASE 1 po q day POTASSIUM CHLORIDE 51598744078 Active Kortney Mccain Active POTASSIUM CHLORIDE 20 MEQ ORAL PACKET 1 tab po q day POTASSIUM CHLORIDE 75341026263 No Longer Active Kortney Mccain Active POTASSIUM CHLORIDE ER 10 MEQ ORAL CAPSULE EXTENDED RELEASE 1 capsule BID 2016 POTASSIUM CHLORIDE 03525417069 No Longer Active Kortney Mccain Active LASIX 20 MG ORAL TABLET 1 tablet by mouth every morning FUROSEMIDE 80844958684 No Longer Active Kortney Mccain Active FLUOXETINE HCL 10 MG ORAL CAPSULE 1 po qd for depression/anxiety FLUOXETINE HCL 74665805959 Active Meenu Alejo LPN Active VOLTAREN 1 % TRANSDERMAL GEL apply q 6-8 hour to left arm as needed for pain DICLOFENAC SODIUM 40795744255 Active Kortney Mccain Active ALBUTEROL SULFATE (2.5 MG/3ML) 0.083% INHALATION NEBULIZATION SOLUTION 1 vial neb q 4hrs for severe asthma. imperative to have this agent ALBUTEROL SULFATE 96130311529 Active Ciera Pimentel Active NIFEDIAC CC 30 MG ORAL TABLET EXTENDED RELEASE 24 HOUR 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 NIFEDIPINE 74324700756 Active Kortney Mccain Active AMLODIPINE BESYLATE 5 MG ORAL TABLET 1 tablet by mouth daily 2016 AMLODIPINE BESYLATE 91489230412 No Longer Active Harinder Hernandez DO Active TOPAMAX 25 MG ORAL TABLET 1 tab po BID TOPIRAMATE 49766255072 Active Kortney Mccain Active FLUTICASONE PROPIONATE 50 MCG/ACT NASAL SUSPENSION 2 sprays per nostril daily PRN Allergies FLUTICASONE PROPIONATE 17837451442 Active Meenu Alejo LPN Active NIFEDIPINE ER 30 MG ORAL TABLET EXTENDED RELEASE 24 HOUR 1 daily NIFEDIPINE 55738675862 No Longer Active Harinder Hernandez DO Active FLOVENT HFA 110 MCG/ACT INHALATION AEROSOL 2 puffs inhaled b.i.d. FLUTICASONE PROPIONATE HFA 83403088813 Active Harinder Hernandez DO Active EPIPEN 2-BRUNA 0.3 MG/0.3ML INJECTION SOLUTION AUTO-INJECTOR 1 INJ NEEDED EPINEPHRINE 16112768180 Active Meenu Alejo LPN Active PREDNISONE 20 MG ORAL TABLET 1 tab twice daily for 3 day, then one daily for three days PREDNISONE 22020458010 No Longer Active Harinder Hernandez DO Active PREDNISONE 20 MG ORAL TABLET 1 tablet twice daily for 2 days, then 1 tablet once daily for 2 days PREDNISONE 57533581495 No Longer Active Harinder Hernandez DO Active ASMANEX 120 METERED DOSES 220 MCG/INH INHALATION AEROSOL POWDER BREATH ACTIVATED 2 puffs orally twice daily MOMETASONE FUROATE 83113891198 Active Jeri Sosa LPN Active TOPIRAMATE 25 MG ORAL TABLET 1 tab po BID TOPIRAMATE 97109540527 No Longer Active Nettie Newberry APRN Active AMLODIPINE BESYLATE 5 MG ORAL TABLET Take 1 tab po daily AMLODIPINE BESYLATE 21729348183 No Longer Active Nettie Newberry APRN Active MECLIZINE HCL 25 MG ORAL TABLET 1 tablet three times daily for 3 days, then 1/ 2 tab three times daily for 3 days. MECLIZINE HCL 29077705938 No Longer Active Nettie Newberry APRN Active AMITRIPTYLINE HCL 25 MG ORAL TABLET 1 q hs prn AMITRIPTYLINE HCL 01024443129 No Longer Active Nettie Newberry APRN Active DILAUDID 2 MG ORAL TABLET Take 1/2 tab po every 4 hours as needed for pain HYDROMORPHONE HCL 49194429058 No Longer Active Nettie Newberry APRN Active CLOPIDOGREL BISULFATE 75 MG ORAL TABLET 1 tab by mouth once daily CLOPIDOGREL BISULFATE 11061172224 Active Meenu Aleoj LPN Active ATORVASTATIN CALCIUM 10 MG ORAL TABLET 1 at bedtime ATORVASTATIN CALCIUM 37384914616 Active Kortney Mccain Active LOVASTATIN 40 MG ORAL TABLET Take 1 tab po every hs LOVASTATIN 89482738763 No Longer Active Harinder Hernandez DO Active PREDNISONE 20 MG ORAL TABLET 2 tabs daily for 4 days, 1 tab daily for 4 days, 1/2 tab daily for 4 days PREDNISONE 60428809183 No Longer Active Harinder Hernandez DO Active LEVAQUIN 500 MG ORAL TABLET Take 1 tab po daily x 8 days LEVOFLOXACIN 96318886284 No Longer Active Harinder Hernandez DO Active VENTOLIN HFA 108 (90 Base) MCG/ACT INHALATION AEROSOL SOLUTION 2 -4 puffs four times a day PRN ALBUTEROL SULFATE 20263364588 No Longer Active Jeri Sosa LPN Active ACEBUTOLOL HCL 200 MG ORAL CAPSULE 1 cap in the morning and 2 caps in the evening ACEBUTOLOL HCL 94286028848 No Longer Active Harinder Hernandez DO Active CEFDINIR 300 MG ORAL CAPSULE take 1 cap po bid x 10 days CEFDINIR 38377652865 No Longer Active Harinder Hernandez DO Active LOVASTATIN 40 MG ORAL TABLET 1 pill by mouth nightly for cholesterol LOVASTATIN 69448665970 No Longer Active Nettie Newberry APRN Active NITROSTAT 0.4 MG SUBLINGUAL TABLET SUBLINGUAL 1 tab under tongueas needed for chest pain ( may take 3 total, 5 min apart, then call 911) NITROGLYCERIN 27095732919 No Longer Active Nettie Newberry APRN Active POTASSIUM CHLORIDE ER 10 MEQ ORAL CAPSULE EXTENDED RELEASE 1 capsule by mouth daily POTASSIUM CHLORIDE 04232659861 No Longer Active Nettie Newberry APRN Active TESSALON PERLES 100 MG ORAL CAPSULE 1 to 2 tablets by mouth 3 times daily as needed for cough BENZONATATE 67488482369 No Longer Active Nettie Newberry APRN Active PREDNISONE 20 MG ORAL TABLET 2 po qd x 5 days PREDNISONE 08774519501 No Longer Active Jae Morgan MD Active AZITHROMYCIN 250 MG ORAL TABLET 2 po qd x 1 day, then 1 po qd x 4 days 12/30 AZITHROMYCIN 62688269098 No Longer Active Jae Morgan MD Active PREDNISONE 20 MG ORAL TABLET 1 tab twice daily for 3 day, then one daily for three days PREDNISONE 30522522543 No Longer Active Jae Morgan MD Active SINGULAIR 10 MG ORAL TABLET 1 pill by mouth every evening for breathing. 2014 MONTELUKAST SODIUM 89750341141 Active Meenu Alejo LPN Active TYLENOL 325 MG ORAL TABLET 3 by mouth q4h as needed ACETAMINOPHEN 43691970774 Active Harinder Hernandez DO Active POTASSIUM CHLORIDE ER 10 MEQ ORAL TABLET EXTENDED RELEASE take 1 tab po daily POTASSIUM CHLORIDE 46453288715 No Longer Active Harinder Hernandez DO Active PREDNISONE 20 MG ORAL TABLET 1 TID x 2 days, then 1 BID x 3 days, then 1 Daily x 3 days, then stop PREDNISONE 55761262378 No Longer Active Jillina Fradankl LOAN APPROVER Active LEVAQUIN 500 MG ORAL TABLET 1 tablet by mouth daily LEVOFLOXACIN 51319707223 No Longer Active Jillina Frazell LOAN APPROVER Active NEURONTIN 300 MG ORAL CAPSULE 1 cap by mouth three times daily for restless leg GABAPENTIN 24743593586 No Longer Active Harinder Hernandez DO Active BENZONATATE 100 MG ORAL CAPSULE 1 cap po TID PRN BENZONATATE 30196691553 No Longer Active Harinder Hernandez DO Active MONTELUKAST SODIUM 10 MG ORAL TABLET 1 tab po in the evening 2014 MONTELUKAST SODIUM 40027455157 No Longer Active Harinder Hernandez DO Active MUPIROCIN 2 % EXTERNAL OINTMENT apply to affected area BID x 14 days MUPIROCIN 13847302743 No Longer Active Harinder Hernandez DO Active TYLENOL EXTRA STRENGTH 500 MG ORAL TABLET as needed ACETAMINOPHEN 62646234243 No Longer Active Harinder Hernandez DO Active PREDNISONE 10 MG ORAL TABLET 1 tab po daily PREDNISONE 07462047823 No Longer Active Harinder Hernandez DO Active PREDNISONE 20 MG ORAL TABLET 2 tabs daily for 4 days, 1 tab daily for 4 days, 1/2 tab daily for 4 days PREDNISONE 02541687267 No Longer Active Harinder Hernandez DO Active AZITHROMYCIN 250 MG ORAL TABLET 2 po qd x 1 day, then 1 po qd x 4 days 04/06 AZITHROMYCIN 56224318350 No Longer Active Harinder Hernandez DO Active PREDNISONE 20 MG ORAL TABLET 3 tabs today, then 1 tab twice daily for 3 day, then one daily for three days PREDNISONE 27755996862 No Longer Active Harinder Hernandez DO Active NIFEDIAC CC 30 MG ORAL TABLET EXTENDED RELEASE 24 HOUR 1 tablet daily for raynaud's syndrome NIFEDIPINE 77717611324 No Longer Active Tawnya Pardo MA Active AMBIEN 10 MG ORAL TABLET 1/2 tab by mouth at bedtime as needed for sleep 2013 ZOLPIDEM TARTRATE 82499361827 Active Meenu Alejo LPN Active CLONAZEPAM 1 MG ORAL TABLET 1 tablet at bedtime for insomnia and restless legs CLONAZEPAM 87972551871 Active Meenu Alejo LPN Active CLONAZEPAM 0.5 MG ORAL TABLET 1 tab po daily CLONAZEPAM 31877286376 No Longer Active Harinder Hernandez DO Active PREDNISONE 10 MG ORAL TABLET 1 tablet daily for COPD PREDNISONE 90179523821 Active Kortney Mccain Active PROAIR HFA 108 (90 Base) MCG/ACT INHALATION AEROSOL SOLUTION 2 puffs four times a day as needed ALBUTEROL SULFATE 96500354173 Active Harinder Hernandez DO Active FLOVENT HFA 110 MCG/ACT INHALATION AEROSOL 2 puffs inhaled b.i.d. FLUTICASONE PROPIONATE HFA 64757893990 Active Kortney Mccain Active ACIPHEX 20 MG ORAL TABLET DELAYED RELEASE 1 tab po daily RABEPRAZOLE SODIUM 26422585603 Active Meenu Alejo LPN Active CLONAZEPAM 0.5 MG ORAL TABLET 1 tab po daily CLONAZEPAM 0.5 MG ORAL TABLET 767093 CLONAZEPAM Inactive PREDNISONE 20 MG ORAL TABLET 3 tabs today, then 1 tab twice daily for 3 day, then one daily for three days PREDNISONE 20 MG ORAL TABLET 327107 PREDNISONE Inactive PREDNISONE 20 MG ORAL TABLET 2 tabs daily for 4 days, 1 tab daily for 4 days, 1/2 tab daily for 4 days PREDNISONE 20 MG ORAL TABLET 064735 PREDNISONE Inactive PREDNISONE 10 MG ORAL TABLET 1 tab po daily PREDNISONE 10 MG ORAL TABLET 029150 PREDNISONE Inactive TYLENOL EXTRA STRENGTH 500 MG ORAL TABLET as needed TYLENOL EXTRA STRENGTH 500 MG ORAL TABLET 137510 ACETAMINOPHEN Inactive MUPIROCIN 2 % EXTERNAL OINTMENT apply to affected area BID x 14 days MUPIROCIN 2 % EXTERNAL OINTMENT 072956 MUPIROCIN Inactive MONTELUKAST SODIUM 10 MG ORAL TABLET 1 tab po in the evening 2014 MONTELUKAST SODIUM 10 MG ORAL TABLET 509402 MONTELUKAST SODIUM Inactive BENZONATATE 100 MG ORAL CAPSULE 1 cap po TID PRN BENZONATATE 100 MG ORAL CAPSULE 424156 BENZONATATE Inactive NEURONTIN 300 MG ORAL CAPSULE 1 cap by mouth three times daily for restless leg NEURONTIN 300 MG ORAL CAPSULE 231716 GABAPENTIN Inactive LEVAQUIN 500 MG ORAL TABLET 1 tablet by mouth daily LEVAQUIN 500 MG ORAL TABLET 625783 LEVOFLOXACIN Inactive PREDNISONE 20 MG ORAL TABLET 1 TID x 2 days, then 1 BID x 3 days, then 1 Daily x 3 days, then stop PREDNISONE 20 MG ORAL TABLET 393132 PREDNISONE Inactive POTASSIUM CHLORIDE ER 10 MEQ ORAL TABLET EXTENDED RELEASE take 1 tab po daily POTASSIUM CHLORIDE ER 10 MEQ ORAL TABLET EXTENDED RELEASE POTASSIUM CHLORIDE Inactive PREDNISONE 20 MG ORAL TABLET 1 tab twice daily for 3 day, then one daily for three days PREDNISONE 20 MG ORAL TABLET 693400 PREDNISONE Inactive TESSALON PERLES 100 MG ORAL CAPSULE 1 to 2 tablets by mouth 3 times daily as needed for cough TESSALON PERLES 100 MG ORAL CAPSULE 770834 BENZONATATE Inactive POTASSIUM CHLORIDE ER 10 MEQ ORAL CAPSULE EXTENDED RELEASE 1 capsule by mouth daily POTASSIUM CHLORIDE ER 10 MEQ ORAL CAPSULE EXTENDED RELEASE POTASSIUM CHLORIDE Inactive NITROSTAT 0.4 MG SUBLINGUAL TABLET SUBLINGUAL 1 tab under tongueas needed for chest pain ( may take 3 total, 5 min apart, then call 911) NITROSTAT 0.4 MG SUBLINGUAL TABLET SUBLINGUAL 531967 NITROGLYCERIN Inactive LOVASTATIN 40 MG ORAL TABLET 1 pill by mouth nightly for cholesterol LOVASTATIN 40 MG ORAL TABLET 208526 LOVASTATIN Inactive CEFDINIR 300 MG ORAL CAPSULE take 1 cap po bid x 10 days CEFDINIR 300 MG ORAL CAPSULE 144866 CEFDINIR Inactive ACEBUTOLOL HCL 200 MG ORAL CAPSULE 1 cap in the morning and 2 caps in the evening ACEBUTOLOL HCL 200 MG ORAL CAPSULE 821460 ACEBUTOLOL HCL Inactive VENTOLIN HFA 108 (90 Base) MCG/ACT INHALATION AEROSOL SOLUTION 2 -4 puffs four times a day PRN VENTOLIN HFA 108 (90 Base) MCG/ ACT INHALATION AEROSOL SOLUTION ALBUTEROL SULFATE Inactive LEVAQUIN 500 MG ORAL TABLET Take 1 tab po daily x 8 days LEVAQUIN 500 MG ORAL TABLET 608802 LEVOFLOXACIN Inactive PREDNISONE 20 MG ORAL TABLET 2 tabs daily for 4 days, 1 tab daily for 4 days, 1/2 tab daily for 4 days PREDNISONE 20 MG ORAL TABLET 884717 PREDNISONE Inactive LOVASTATIN 40 MG ORAL TABLET Take 1 tab po every hs LOVASTATIN 40 MG ORAL TABLET 060101 LOVASTATIN Inactive DILAUDID 2 MG ORAL TABLET Take 1/2 tab po every 4 hours as needed for pain DILAUDID 2 MG ORAL TABLET 094782 HYDROMORPHONE HCL Inactive AMITRIPTYLINE HCL 25 MG ORAL TABLET 1 q hs prn AMITRIPTYLINE HCL 25 MG ORAL TABLET 219011 AMITRIPTYLINE HCL Inactive MECLIZINE HCL 25 MG ORAL TABLET 1 tablet three times daily for 3 days, then 1/ 2 tab three times daily for 3 days. MECLIZINE HCL 25 MG ORAL TABLET 608993 MECLIZINE HCL Inactive AMLODIPINE BESYLATE 5 MG ORAL TABLET Take 1 tab po daily AMLODIPINE BESYLATE 5 MG ORAL TABLET 985486 AMLODIPINE BESYLATE Inactive TOPIRAMATE 25 MG ORAL TABLET 1 tab po BID TOPIRAMATE 25 MG ORAL TABLET 360141 TOPIRAMATE Inactive PREDNISONE 20 MG ORAL TABLET 1 tablet twice daily for 2 days, then 1 tablet once daily for 2 days PREDNISONE 20 MG ORAL TABLET 288705 PREDNISONE Inactive PREDNISONE 20 MG ORAL TABLET 1 tab twice daily for 3 day, then one daily for three days PREDNISONE 20 MG ORAL TABLET 710040 PREDNISONE Inactive NIFEDIPINE ER 30 MG ORAL TABLET EXTENDED RELEASE 24 HOUR 1 daily NIFEDIPINE ER 30 MG ORAL TABLET EXTENDED RELEASE 24 HOUR NIFEDIPINE Inactive AMLODIPINE BESYLATE 5 MG ORAL TABLET 1 tablet by mouth daily 2016 AMLODIPINE BESYLATE 5 MG ORAL TABLET 884191 AMLODIPINE BESYLATE Inactive LASIX 20 MG ORAL TABLET 1 tablet by mouth every morning LASIX 20 MG ORAL TABLET 727380 FUROSEMIDE Inactive POTASSIUM CHLORIDE ER 10 MEQ ORAL CAPSULE EXTENDED RELEASE 1 capsule BID 2016 POTASSIUM CHLORIDE ER 10 MEQ ORAL CAPSULE EXTENDED RELEASE POTASSIUM CHLORIDE Inactive POTASSIUM CHLORIDE 20 MEQ ORAL PACKET 1 tab po q day POTASSIUM CHLORIDE 20 MEQ ORAL PACKET 6231185 POTASSIUM CHLORIDE Inactive PREDNISONE 20 MG ORAL TABLET 2 tablets by mouth today, then 1 tablet by mouth days 2-3 PREDNISONE 20 MG ORAL TABLET 306546 PREDNISONE Inactive SPIRONOLACTONE 25 MG ORAL TABLET 1 tablet by mouth daily SPIRONOLACTONE 25 MG ORAL TABLET 057649 SPIRONOLACTONE Inactive AZITHROMYCIN 250 MG ORAL TABLET 2 po qd x 1 day, then 1 po qd x 4 days 04/06 AZITHROMYCIN 250 MG ORAL TABLET 217923 AZITHROMYCIN Inactive AZITHROMYCIN 250 MG ORAL TABLET 2 po qd x 1 day, then 1 po qd x 4 days 12/30 AZITHROMYCIN 250 MG ORAL TABLET 552913 AZITHROMYCIN Inactive PREDNISONE 20 MG ORAL TABLET 2 po qd x 5 days PREDNISONE 20 MG ORAL TABLET 236878 PREDNISONE Inactive Vital Signs Date Name Value [...] Panel - Chemistry sodium, serum 140 mmol/L 993-983 9842/07/13 potassium, serum 3.2 mmol/L 3.5-5.2 chloride, serum 103 mmol/L 98-107 carbon dioxide, venous blood 26.9 mmol/L 21.0-32.0 blood glucose 93 mg/dL 65-110 calcium, serum 9.2 mg/dL 8.5-10.1 urea nitrogen, blood 13 mg/dL 7-18 creatinine, serum 0.84 mg/dL 0.60-1.30 sodium, serum 140 mmol/L 893-586 1759/08/21 potassium, serum 3.8 mmol/L 3.5-5.2 chloride, serum [...] ... - Chemistry sodium, serum 141 mmol/L 624-520 3837/08/07 carbon dioxide, venous blood 34.0 mmol/L 21.0-32.0 [...] 1.40 mg/dL 0.00-1.00 cholesterol, serum 192 mg/dL 003-592 6107/10/19 triglyceride, serum, fasting 71 mg/dL 30-200 HDL cholesterol, serum 72 mg/dL 32-60 LDL cholesterol, serum 106 mg/dL 0-130 Lab Report: Rapid Strep - Lab Microbial identification kit, rapid strep method Negative Negative Lab Report: THEOPHYLLINE - Toxicology theophylline level, serum 3.1 ug/mL 10.0-20.0 Encounters Code Encounter Date Provider Facility CPT-94648 Level 4 Est. Patient 10:17:51 REPORTING DEVELOPER Harinder Cr [facility] CPT-98271 Level 3 Est. Patient 12:36:15 REPORTING DEVELOPER Harinder Cr [facility] CPT-35069 Level 3 Est. Patient 15:14:45 REPORTING DEVELOPER Harinder Cr [facility] CPT-26175 Level 4 Est. Patient 14:45:25 CDT Harinder Cr [facility] CPT-11517 Level 4 Est. Patient 09:15:13 CDT Harinder Shaye [facility] CPT-44819 Level 3 Est. Patient 11:51:58 CDT Harinder Shaye [facility] CPT-62654 Level 3 Est. Patient 11:30:05 CDT Harinder Cr [facility] CPT-98548 Level 4 Est. Patient 10:19:23 CDT Harinder Cr [facility] CPT-77622 Level 3 Est. Patient 09:58:58 CDT Harinder Hernandez [facility] CPT-87819 Level 3 Est. Patient 12:37:21 CDT Harinder Cr David [facility] CPT-62823 Level 3 Est. Patient 18:37:17 CDT Harinder Hernandez [facility] CPT-47645 Level 4 Est. Patient 11:15:54 CDT Nettie King MAHENDRA [facility] CPT-12168 Level 3 Est. Patient 16:42:24 CDT Harinder Cr David [facility] CPT-23932 Level 3 Est. Patient 15:03:36 CDT Harinder Cr David [facility] CPT-46487 Level 3 Est. Patient 15:03:20 CDT Harinder Cr David [facility] CPT-61782 Level 3 Est. Patient 12:14:34 CDT Harinder Hernandez [facility] CPT-54114 Level 3 Est. Patient 13:47:15 CDT Harinder Cr David [facility] CPT-62467 Level 3 Est. Patient 14:08:24 CDT Harinder Hernandez [facility] CPT-39454 Level 3 Est. Patient 10:07:15 CDT Harinder Cr David [facility] CPT-80661 Level 3 Est. Patient 10:06:59 CDT Harinder Cr David [facility] CPT-42396 Level 3 Est. Patient 15:53:29 CDT Jae Morgan MD [facility] CPT-12541 Level 3 Est. Patient 17:19:04 CDT Harinder Cr David [facility] CPT-75979 Level 3 Est. Patient 11:13:01 CDT Harinder Cr [facility] CPT-88864 Level 3 Est. Patient 09:03:58 CDT Harinder W [facility] CPT-48714 Level 3 Est. Patient 14:46:45 REPORTING DEVELOPER Harinder Hernandez [facility] CPT-95675 Level 3 Est. Patient 09:35:49 REPORTING DEVELOPER Harinder Hernandez [facility] CPT-38970 Level 3 Est. Patient 09:29:37 REPORTING DEVELOPER Harinder Hernandez [facility] CPT-44052 Level 3 Est. Patient 15:51:07 CDT Harinder Hernandez [facility] CPT-96343 Level 3 Est. Patient 18:13:13 CDT Harinder Hernandez [facility] CPT-13218 Level 3 Est. Patient 10:44:19 CDT Harinder Hernandez [facility] CPT-39717 Level 4 Est. Patient 10:07:19 REPORTING DEVELOPER Harinder Hernandez [facility] CPT-01500 Level 3 Est. Patient 15:59:32 REPORTING DEVELOPER Harinder Hernandez [facility] Procedures Code Procedure Name Date Entry Date Standard Description CPT-28072 Bone Density - XRAY USE ONLY 14:43:42 CDT CPT-G0009 Administration of Pneumococcal Vaccine 10:33:25 REPORTING DEVELOPER CPT-19838 Pneumovax 23 Injection Injectable 25 MCG/0.5ML 10:33:25 REPORTING DEVELOPER CPT-23126 First Vx - Ix admin for Medicare patients 10:33:25 REPORTING DEVELOPER CPT-57764 Fluzone Quadrivalent Intramuscular Suspension 0.5 ML 10: 33:25 REPORTING DEVELOPER CPT-Cryo Cryotherapy 10:17:51 REPORTING DEVELOPER CPT-G0438 Initial Annual Wellness Exam 10:08:59 REPORTING DEVELOPER CPT-31491 Abd compl w upright - XRAY USE ONLY 14:48:09 CDT 02/18 CPT-48818 Port a cath flush 13:46:05 CDT CPT-93167 Hip, complete, 2-3 views - XRAY USE ONLY 10:28:40 CDT CPT-73034 BMP - LAB USE ONLY 16:45:09 REPORTING DEVELOPER CPT-12870 Port a cath flush 12:00:13 REPORTING DEVELOPER CPT-TCMM Transitional Care Mgmt-Moderate 11:20:16 REPORTING DEVELOPER CPT-31808 First Vx - Ix admin for Medicare patients 17:35:15 CDT CPT-70982 Fluzone Preservative Free Intramuscular Suspension 17:35 :15 CDT CPT-15923 Microalbumin - LAB USE ONLY 11:52:05 CDT CPT-TCMM Transitional Care Mgmt-Moderate 11:33:57 CDT CPT-96736 No Charge Offi Visit 14:11:29 CDT CPT-36906 Magnesium - LAB USE ONLY 10:45:44 CDT CPT-92309 Lipid - LAB USE ONLY 10:45:44 CDT CPT-81449 CBC - LAB USE ONLY 10:45:44 CDT CPT-98695 Venipuncture Draw Fee 10:45:43 CDT CPT-51071 Venipuncture Draw Fee 18:21:27 CDT CPT-JTINJ Asp/Joint Injection 18:38:04 CDT CPT-18000 Immunization Each Additional Inj 17:38:04 CDT CPT-78788 Immunization Single Admin 17:38:04 CDT CPT-00232 Prevnar 13 17:38:04 CDT CPT-18466 Fluzone Quadrivalent preservative free (>=3yrs.) 17:38: 04 CDT CPT-18054 No Charge Offi Visit 11:14:03 CDT CPT-69723 Chest 2V Frontal and Lat 14:00:18 CDT CPT-OV Office Visit 16:10:28 CDT CPT-JTINJ Asp/Joint Injection 09:03:57 CDT CPT-Cryo Cryotherapy 09:35:49 REPORTING DEVELOPER CPT-JTINJ Asp/Joint Injection 09:34:45 REPORTING DEVELOPER CPT-J2930 Solu Medrol 125 mg (Methyl Prednisolone Sodium Succinate) 20:37:27 CDT CPT-22389 Abx/Therapy Injection 20:37:27 CDT CPT-79618 Port a cath flush 08:15:51 CDT CPT-54694 Port a cath flush 09:54:16 CDT CPT-72488 Port a cath flush 09:38:02 CDT CPT-46766 Port a cath flush 11:00:27 REPORTING DEVELOPER
--- OUTSIDE RECORDS SUMMARY | 2017-12-29 00:17 | XMS REPORT | Clinical Summary ---
Author Author Admin, QIE Organization [facility] [employer] Address Unknown Phone Unavailable Allergies, Adverse Reactions, Alerts Allergy Name Reaction Description Start Date Severity Status Provider VANCOMYCIN Critical Active Harinder Hernandez DO LEVAQUIN stomach upset, diarrhea, and itching Critical Active Harinder Hernandez DO AITHROMYCIN itch Moderate Active Harinder Hernandez DO NEOSPORIN Critical Active Harinder Hernandez DO TRAMADOL HCL Critical Active Harinder Hernandez DO REQUIP Critical Active aHrinder Hernandez DO PENICILLIN V POTASSIUM Critical Active [...] imperative to have this agent ALBUTEROL SULFATE 82051856410 Active Harinder Hernandez DO Active NIFEDIAC CC 30 MG [id number] 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 NIFEDIPINE 04089041278 Active Harinder Hernandez DO Active AMLODIPINE BESYLATE 5 MG TABS 1 tablet by mouth daily AMLODIPINE BESYLATE 63317783577 No Longer Active Harinder Hernandez DO Active TOPAMAX 25 MG ORAL TABS 1 tab po BID TOPIRAMATE 79138075684 Active Kortney Mccain Active FLUTICASONE PROPIONATE 50 MCG/ACT SUSP 2 sprays per nostril daily PRN Allergies FLUTICASONE PROPIONATE 77821405526 Active Kortney Mccain Active NIFEDIPINE ER 30 MG ORAL [id number] 1 daily NIFEDIPINE 34457753810 No Longer Active Harinder Hernandez DO Active POTASSIUM CHLORIDE 20 MEQ ORAL PACK Take 1 tablet by mouth daily POTASSIUM CHLORIDE 86431601626 Active Ciera Pimentel Active FLOVENT HFA 110 MCG/ACT AERO 2 puffs inhaled b.i.d. FLUTICASONE PROPIONATE HFA 12436027036 Active Harinder Hernandez DO Active POTASSIUM CHLORIDE CR 10 MEQ CPCR 1 capsule by mouth daily POTASSIUM CHLORIDE 18690593983 Active Harinder Hernandez DO Active EPIPEN 2-BRUNA 0.3 MG/0.3ML INJ SOAJ 1 INJ NEEDED EPINEPHRINE 80318037842 Active Harinder Hernandez DO Active PREDNISONE 20 MG TAB 1 tab twice daily for 3 day, then one daily for three days PREDNISONE 69920803930 No Longer Active Harinder Hernandez DO Active PREDNISONE 20 MG TAB 1 tablet twice daily for 2 days, then 1 tablet once daily for 2 days PREDNISONE 37297134959 No Longer Active Harinder Hernandez DO Active ASMANEX 120 METERED DOSES 220 MCG/INH INH AEPB 2 puffs orally twice daily MOMETASONE FUROATE 99259785725 Active Jeri Sosa RPT,RMA Active TOPIRAMATE 25 MG TABS 1 tab po BID TOPIRAMATE 39019098452 No Longer Active Nettie Newberry APRN Active AMLODIPINE BESYLATE 5 MG ORAL TABS Take 1 tab po daily AMLODIPINE BESYLATE 59459286526 No Longer Active Nettie Newberry APRN Active MECLIZINE HCL 25 MG TAB 1 tablet three times daily for 3 days, then 1/2 tab three times daily for 3 days. MECLIZINE HCL 15247228538 No Longer Active Nettie Newberry APRN Active AMITRIPTYLINE HCL 25 MG ORAL TABS 1 q hs prn AMITRIPTYLINE HCL 14401556681 No Longer Active Nettie Newberry APRN Active DILAUDID 2 MG ORAL TABS Take 1/2 tab po every 4 hours as needed for pain 2014 HYDROMORPHONE HCL 54241272850 No Longer Active Nettie Newberry APRN Active CLOPIDOGREL BISULFATE 75 MG ORAL TABS 1 tab by mouth once daily CLOPIDOGREL BISULFATE 87776789911 Active Harinder Hernandez DO Active ATORVASTATIN CALCIUM 10 MG ORAL TABS 1 at bedtime ATORVASTATIN CALCIUM 44471280438 Active Tawnya Pardo MA Active LOVASTATIN 40 MG ORAL TABS Take 1 tab po every hs LOVASTATIN 74740574619 No Longer Active Harinder Hernandez DO Active PREDNISONE 20 MG TAB 2 tabs daily for 4 days, 1 tab daily for 4 days, 1/2 tab daily for 4 days PREDNISONE 36518773777 No Longer Active Harinder Hernandez DO Active LEVAQUIN 500 MG ORAL TABS Take 1 tab po daily x 8 days LEVOFLOXACIN 10591950964 No Longer Active Harinder Hernandez DO Active VENTOLIN HFA 108 (90 BASE) MCG/ACT AERS 2 -4 puffs four times a day PRN 2013 ALBUTEROL SULFATE 61841863775 No Longer Active Jeri Sosa RPT,RMA Active ACEBUTOLOL HCL 200 MG CAPS 1 cap in the morning and 2 caps in the evening ACEBUTOLOL HCL 87115368366 No Longer Active Harinder Hernandez DO Active CEFDINIR 300 MG ORAL CAPS take 1 cap po bid x 10 days CEFDINIR 69087338499 No Longer Active Harinder Hernandez DO Active LOVASTATIN 40 MG TABS 1 pill by mouth nightly for cholesterol LOVASTATIN 40049145804 No Longer Active Nettie Newberry APRN Active NITROSTAT 0.4 MG SUBL 1 tab under tongueas needed for chest pain ( may take 3 total, 5 min apart, then call 911) NITROGLYCERIN 79574356860 No Longer Active Nettie Newberry APRN Active POTASSIUM CHLORIDE CR 10 MEQ CPCR 1 capsule by mouth daily 02/14 POTASSIUM CHLORIDE 37066803578 No Longer Active Nettie Newberry APRN Active TESSALON PERLES 100 MG CAP 1 to 2 tablets by mouth 3 times daily as needed for cough BENZONATATE 69830571008 No Longer Active Nettie Newberry APRN Active THEOPHYLLINE ER 200 MG ORAL [id number] Take 1 tab every 12 hours THEOPHYLLINE 23503389444 Active Tawnya Pardo MA Active PREDNISONE 20 MG TAB 2 po qd x 5 days PREDNISONE 20204347115 No Longer Active Jae Morgan MD Active AZITHROMYCIN 250 MG TABS 2 po qd x 1 day, then 1 po qd x 4 days AZITHROMYCIN 66021482915 No Longer Active Jae Morgan MD Active PREDNISONE 20 MG TAB 1 tab twice daily for 3 day, then one daily for three days PREDNISONE 37848789497 No Longer Active Jae Morgan MD Active SINGULAIR 10 MG TABS 1 pill by mouth every evening for breathing. MONTELUKAST SODIUM 76814726792 Active Tawnya Pardo MA Active TYLENOL 325 MG TAB 3 by mouth q4h as needed ACETAMINOPHEN 06941483125 Active Harinder Hernandez DO Active POTASSIUM CHLORIDE ER 10 MEQ CR-TABS take 1 tab po daily POTASSIUM CHLORIDE 00696456712 No Longer Active Harinder Hernandez DO Active PREDNISONE 20 MG TAB 1 TID x 2 days, then 1 BID x 3 days, then 1 Daily x 3 days, then stop PREDNISONE 74638677625 No Longer Active Jillina Frazell MEDICAL DIAGNOSTIC RADIOGRAPHER Active LEVAQUIN 500 MG TAB 1 tablet by mouth daily LEVOFLOXACIN 32488368182 No Longer Active Jillina Frazell MEDICAL DIAGNOSTIC RADIOGRAPHER Active NEURONTIN 300 MG CAP 1 cap by mouth three times daily for restless leg 06/22 GABAPENTIN 68474032043 No Longer Active Harinder Hernandez DO Active BENZONATATE 100 MG CAPS 1 cap po TID PRN BENZONATATE 04367931220 No Longer Active Harinder Hernandez DO Active MONTELUKAST SODIUM 10 MG TABS 1 tab po in the evening MONTELUKAST SODIUM 55336542349 No Longer Active Harinder Hernandez DO Active MUPIROCIN 2 % OINT apply to affected area BID x 14 days MUPIROCIN 54216922083 No Longer Active Harinder Hernandez DO Active TYLENOL EXTRA STRENGTH 500 MG TABS as needed ACETAMINOPHEN 69532746038 No Longer Active Harinder Hernandez DO Active PREDNISONE 10 MG TABS 1 tab po daily PREDNISONE 07707933353 No Longer Active Harinder Hernandez DO Active PREDNISONE 20 MG TAB 2 tabs daily for 4 days, 1 tab daily for 4 days, 1/2 tab daily for 4 days PREDNISONE 12576207305 No Longer Active Harinder Hernandez DO Active AZITHROMYCIN 250 MG TABS 2 po qd x 1 day, then 1 po qd x 4 days AZITHROMYCIN 19182793756 No Longer Active Harinder Hernandez DO Active PREDNISONE 20 MG TAB 3 tabs today, then 1 tab twice daily for 3 day, then one daily for three days PREDNISONE 77581936906 No Longer Active Harinder Hernandez DO Active NIFEDIAC CC 30 MG [id number] 1 tablet daily for raynaud's syndrome NIFEDIPINE 41832720299 No Longer Active Tawnya Pardo MA Active AMBIEN 10 MG TAB 1/2 tab by mouth at bedtime as needed for sleep ZOLPIDEM TARTRATE 14161082782 Active Kortney Mccain Active CLONAZEPAM 1 MG TABS 1 tablet at bedtime for insomnia and restless legs 09/14 CLONAZEPAM 39419508640 Active Harinder Hernandez DO Active CLONAZEPAM 0.5 MG TABS 1 tab po daily CLONAZEPAM 94366388022 No Longer Active Harinder Hernandez DO Active PREDNISONE 10 MG TAB 1 tablet daily for COPD PREDNISONE 74174734147 Active Ciera Pimentel Active PROAIR HFA 108 (90 BASE) MCG/ACT AERS 2 puffs four times a day as needed 2012 ALBUTEROL SULFATE 49094018058 Active Harinder Hernandez DO Active FLOVENT HFA 110 MCG/ACT AERO 2 puffs inhaled b.i.d. FLUTICASONE PROPIONATE HFA 41762676738 Active Kortney Mccain Active ACIPHEX 20 MG TBEC 1 tab po daily RABEPRAZOLE SODIUM 79632327997 Active Kaylah Newberry Active CLONAZEPAM 0.5 MG TABS 1 tab po daily CLONAZEPAM 0.5 MG TABS 229779 CLONAZEPAM Inactive PREDNISONE 20 MG TAB 3 tabs today, then 1 tab twice daily for 3 day, then one daily for three days PREDNISONE 20 MG TAB 199626 PREDNISONE Inactive PREDNISONE 20 MG TAB 2 tabs daily for 4 days, 1 tab daily for 4 days, 1/2 tab daily for 4 days PREDNISONE 20 MG TAB 146466 PREDNISONE Inactive PREDNISONE 10 MG TABS 1 tab po daily PREDNISONE 10 MG TABS 273866 PREDNISONE Inactive TYLENOL EXTRA STRENGTH 500 MG TABS as needed TYLENOL EXTRA STRENGTH 500 MG TABS 433001 ACETAMINOPHEN Inactive MUPIROCIN 2 % OINT apply to affected area BID x 14 days MUPIROCIN 2 % OINT 005269 MUPIROCIN Inactive MONTELUKAST SODIUM 10 MG TABS 1 tab po in the evening MONTELUKAST SODIUM 10 MG TABS 20010818 MONTELUKAST SODIUM Inactive BENZONATATE 100 MG CAPS 1 cap po TID PRN BENZONATATE 100 MG CAPS 529474 BENZONATATE Inactive NEURONTIN 300 MG CAP 1 cap by mouth three times daily for restless leg 06/22 NEURONTIN 300 MG CAP 218155 GABAPENTIN Inactive LEVAQUIN 500 MG TAB 1 tablet by mouth daily LEVAQUIN 500 MG TAB 454266 LEVOFLOXACIN Inactive PREDNISONE 20 MG TAB 1 TID x 2 days, then 1 BID x 3 days, then 1 Daily x 3 days, then stop PREDNISONE 20 MG TAB 780743 PREDNISONE Inactive POTASSIUM CHLORIDE ER 10 MEQ CR-TABS take 1 tab po daily POTASSIUM CHLORIDE ER 10 MEQ CR-TABS POTASSIUM CHLORIDE Inactive PREDNISONE 20 MG TAB 1 tab twice daily for 3 day, then one daily for three days PREDNISONE 20 MG TAB 326395 PREDNISONE Inactive TESSALON PERLES 100 MG CAP 1 to 2 tablets by mouth 3 times daily as needed for cough TESSALON PERLES 100 MG CAP 077172 BENZONATATE Inactive POTASSIUM CHLORIDE CR 10 MEQ CPCR 1 capsule by mouth daily 02/14 POTASSIUM CHLORIDE CR 10 MEQ CPCR POTASSIUM CHLORIDE Inactive NITROSTAT 0.4 MG SUBL 1 tab under tongueas needed for chest pain ( may take 3 total, 5 min apart, then call 911) NITROSTAT 0.4 MG SUBL 393413 NITROGLYCERIN Inactive LOVASTATIN 40 MG TABS 1 pill by mouth nightly for cholesterol LOVASTATIN 40 MG TABS 693965 LOVASTATIN Inactive CEFDINIR 300 MG ORAL CAPS take 1 cap po bid x 10 days CEFDINIR 300 MG ORAL CAPS 944942 CEFDINIR Inactive ACEBUTOLOL HCL 200 MG CAPS 1 cap in the morning and 2 caps in the evening ACEBUTOLOL HCL 200 MG CAPS 569890 ACEBUTOLOL HCL Inactive VENTOLIN HFA 108 (90 BASE) MCG/ACT AERS 2 -4 puffs four times a day PRN 2013 VENTOLIN HFA 108 (90 BASE) MCG/ACT AERS ALBUTEROL SULFATE Inactive LEVAQUIN 500 MG ORAL TABS Take 1 tab po daily x 8 days LEVAQUIN 500 MG ORAL TABS 937827 LEVOFLOXACIN Inactive PREDNISONE 20 MG TAB 2 tabs daily for 4 days, 1 tab daily for 4 days, 1/2 tab daily for 4 days PREDNISONE 20 MG TAB 783501 PREDNISONE Inactive LOVASTATIN 40 MG ORAL TABS Take 1 tab po every hs LOVASTATIN 40 MG ORAL TABS 655095 LOVASTATIN Inactive DILAUDID 2 MG ORAL TABS Take 1/2 tab po every 4 hours as needed for pain 2014 DILAUDID 2 MG ORAL TABS 359643 HYDROMORPHONE HCL Inactive AMITRIPTYLINE HCL 25 MG ORAL TABS 1 q hs prn AMITRIPTYLINE HCL 25 MG ORAL TABS 719969 AMITRIPTYLINE HCL Inactive MECLIZINE HCL 25 MG TAB 1 tablet three times daily for 3 days, then 1/2 tab three times daily for 3 days. MECLIZINE HCL 25 MG TAB 695136 MECLIZINE HCL Inactive AMLODIPINE BESYLATE 5 MG ORAL TABS Take 1 tab po daily AMLODIPINE BESYLATE 5 MG ORAL TABS 384968 AMLODIPINE BESYLATE Inactive TOPIRAMATE 25 MG TABS 1 tab po BID TOPIRAMATE 25 MG TABS 911777 TOPIRAMATE Inactive PREDNISONE 20 MG TAB 1 tablet twice daily for 2 days, then 1 tablet once daily for 2 days PREDNISONE 20 MG TAB 417536 PREDNISONE Inactive PREDNISONE 20 MG TAB 1 tab twice daily for 3 day, then one daily for three days PREDNISONE 20 MG TAB 094497 PREDNISONE Inactive NIFEDIPINE ER 30 MG ORAL [id number] 1 daily NIFEDIPINE ER 30 MG ORAL [id number] NIFEDIPINE Inactive AMLODIPINE BESYLATE 5 MG TABS 1 tablet by mouth daily AMLODIPINE BESYLATE 5 MG TABS 738651 AMLODIPINE BESYLATE Inactive AZITHROMYCIN 250 MG TABS 2 po qd x 1 day, then 1 po qd x 4 days AZITHROMYCIN 250 MG TABS 2679400 AZITHROMYCIN Inactive AZITHROMYCIN 250 MG TABS 2 po qd x 1 day, then 1 po qd x 4 days AZITHROMYCIN 250 MG TABS 9829991 AZITHROMYCIN Inactive PREDNISONE 20 MG TAB 2 po qd x 5 days PREDNISONE 20 MG TAB 075295 PREDNISONE Inactive Vital Signs Date Name Value [...] Panel - Chemistry sodium, serum 137 mmol/L 403-400 0461/01/03 potassium, serum 3.4 mmol/L 3.5-5.2 chloride, serum [...] Magnesium - Chemistry cholesterol, serum 180 mg/dL 577-217 1312/08/08 triglyceride, serum, fasting 92 mg/dL 30-200 HDL cholesterol, serum 66 mg/dL 32-96 LDL cholesterol, serum 96 mg/dL 0-130 sodium, serum 142 mmol/L 473-057 4938/08/08 carbon dioxide, venous blood 27.4 mmol/L 21.0-32.0 [...] 10.0-20.0 Encounters Code Encounter Date Provider Facility CPT-79422 Level 4 Est. Patient 10:19:23 CDT Harinder Cr [facility] CPT-65602 Level 3 Est. Patient 09:58:58 CDT Harinder Cr [facility] CPT-47713 Level 3 Est. Patient 12:37:21 CDT Harinder Cr [facility] CPT-92703 Level 3 Est. Patient 18:37:17 CDT Harinder Cr [facility] CPT-05573 Level 4 Est. Patient 11:15:54 CDT Nettie Newberry [facility] CPT-70010 Level 3 Est. Patient 16:42:24 CDT Harinder Cr [facility] CPT-52266 Level 3 Est. Patient 15:03:36 CDT Harinder Cr [facility] CPT-92331 Level 3 Est. Patient 15:03:20 CDT Harinder Cr [facility] CPT-54115 Level 3 Est. Patient 12:14:34 CDT Harinder Hernandez [facility] CPT-21936 Level 3 Est. Patient 13:47:15 CDT Harinder Hernandez [facility] CPT-75425 Level 3 Est. Patient 14:08:24 CDT Harinder Hernandez [facility] CPT-85306 Level 3 Est. Patient 10:07:15 CDT Harinder Hernandez [facility] CPT-09245 Level 3 Est. Patient 10:06:59 CDT Harinder Hernandez [facility] CPT-52660 Level 3 Est. Patient 15:53:29 CDT Jae Morgan [facility] CPT-16767 Level 3 Est. Patient 17:19:04 CDT Harinder Hernandez [facility] CPT-38716 Level 3 Est. Patient 11:13:01 CDT Harinder Hernandez [facility] CPT-06134 Level 3 Est. Patient 09:03:58 CDT Harinder Cr [facility] CPT-19460 Level 3 Est. Patient 14:46:45 BROADBAND ENGINEER Harinder Hernandez [facility] CPT-45550 Level 3 Est. Patient 09:35:49 BROADBAND ENGINEER Harinder Hernandez [facility] CPT-75323 Level 3 Est. Patient 09:29:37 BROADBAND ENGINEER Harinder Hernandez [facility] CPT-80673 Level 3 Est. Patient 15:51:07 CDT Harinder Hernandez [facility] CPT-07854 Level 3 Est. Patient 18:13:13 CDT Harinder Shaye Hernandez [facility] CPT-18626 Level 3 Est. Patient 10:44:19 CDT Harinder Cr [facility] CPT-02572 Level 4 Est. Patient 10:07:19 BROADBAND ENGINEER Harinder Cr [facility] CPT-96149 Level 3 Est. Patient 15:59:32 BROADBAND ENGINEER Harinder Cr [facility] Procedures Code Procedure Name Date Entry Date Standard Description CPT-56415 Hip, complete, 2-3 views - XRAY USE ONLY 10:28:40 CDT CPT-85878 BMP - LAB USE ONLY 16:45:09 BROADBAND ENGINEER CPT-85092 Port a cath flush 12:00:13 BROADBAND ENGINEER CPT-TCMM Transitional Care Mgmt-Moderate 11:20:16 BROADBAND ENGINEER CPT-19025 First Vx - Ix admin for Medicare patients 17:35:15 CDT CPT-43762 Fluzone Preservative Free Intramuscular Suspension 17:35 :15 CDT CPT-51312 Microalbumin - LAB USE ONLY 11:52:05 CDT CPT-TCMM Transitional Care Mgmt-Moderate 11:33:57 CDT CPT-84654 No Charge Offi Visit 14:11:29 CDT CPT-71076 Magnesium - LAB USE ONLY 10:45:44 CDT CPT-93911 Lipid - LAB USE ONLY 10:45:44 CDT CPT-50393 CBC - LAB USE ONLY 10:45:44 CDT CPT-89995 Venipuncture Draw Fee 10:45:43 CDT CPT-23078 Venipuncture Draw Fee 18:21:27 CDT CPT-JTINJ Asp/Joint Injection 18:38:04 CDT CPT-27877 Immunization Each Additional Inj 17:38:04 CDT CPT-23591 Immunization Single Admin 17:38:04 CDT CPT-93623 Prevnar 13 17:38:04 CDT CPT-45691 Fluzone Quadrivalent preservative free (>=3yrs.) 17:38: 04 CDT CPT-65027 No Charge Offi Visit 11:14:03 CDT CPT-54178 Chest 2V Frontal and Lat 14:00:18 CDT CPT-OV Office Visit 16:10:28 CDT CPT-JTINJ Asp/Joint Injection 09:03:57 CDT CPT-Cryo Cryotherapy 09:35:49 BROADBAND ENGINEER CPT-JTINJ Asp/Joint Injection 09:34:45 BROADBAND ENGINEER CPT-J2930 Solu Medrol 125 mg (Methyl Prednisolone Sodium Succinate) 20:37:27 CDT CPT-11160 Abx/Therapy Injection 20:37:27 CDT CPT-95450 Port a cath flush 08:15:51 CDT CPT-85261 Port a cath flush 09:54:16 CDT CPT-45007 Port a cath flush 09:38:02 CDT CPT-38270 Port a cath flush 11:00:27 BROADBAND ENGINEER
--- OUTSIDE RECORDS SUMMARY | 2017-12-29 00:18 | XMS REPORT | Clinical Summary ---
Author Author Admin, QIE Organization [facility] [employer] Address Unknown Phone Unavailable Allergies, Adverse Reactions, [...] Cr David DO Insomnia ICD-780.52 Inactive Harinder rC David DO Sacroiliitis, right ICD-720.2 Inactive Harinder [...] MG/0.3ML INJ SOAJ 1 INJ NEEDED EPINEPHRINE 18430202581 Active Tawnya Pardo MA Active PREDNISONE 20 MG TAB 1 tab twice daily for 3 day, then one daily for three days PREDNISONE 41544379802 No Longer Active Harinder Hernandez DO Active PREDNISONE 20 MG TAB 1 tablet twice daily for 2 days, then 1 tablet once daily for 2 days PREDNISONE 93910388567 No Longer Active Harinder Hernandez DO Active ASMANEX 120 METERED DOSES 220 MCG/INH INH AEPB 2 puffs orally twice daily MOMETASONE FUROATE 12783070474 Active Jeri Sosa RPT,RMA Active NIFEDIPINE ER 30 MG ORAL [id number] 1 daily NIFEDIPINE 37045278643 Active Tawnya Pardo MA Active TOPIRAMATE 25 MG TABS 1 tab po BID TOPIRAMATE 58919599776 No Longer Active Nettie Newberry APRN Active AMLODIPINE BESYLATE 5 MG ORAL TABS Take 1 tab po daily AMLODIPINE BESYLATE 75302674993 No Longer Active Nettie Newberry APRN Active MECLIZINE HCL 25 MG TAB 1 tablet three times daily for 3 days, then 1/2 tab three times daily for 3 days. MECLIZINE HCL 90737675004 No Longer Active Nettie Newberry APRN Active AMITRIPTYLINE HCL 25 MG ORAL TABS 1 q hs prn AMITRIPTYLINE HCL 65945946668 No Longer Active Nettie Newberry APRN Active DILAUDID 2 MG ORAL TABS Take 1/2 tab po every 4 hours as needed for pain 2014 HYDROMORPHONE HCL 83162620629 No Longer Active Nettie Newberry APRN Active CLOPIDOGREL BISULFATE 75 MG ORAL TABS 1 tab by mouth once daily CLOPIDOGREL BISULFATE 95731149041 Active Tawnya Pardo MA Active ATORVASTATIN CALCIUM 10 MG ORAL TABS 1 at bedtime ATORVASTATIN CALCIUM 64208088393 Active Tawnya Pardo MA Active LOVASTATIN 40 MG ORAL TABS Take 1 tab po every hs LOVASTATIN 09205404100 No Longer Active Harinder Hernandez DO Active PREDNISONE 20 MG TAB 2 tabs daily for 4 days, 1 tab daily for 4 days, 1/2 tab daily for 4 days PREDNISONE 52343254589 No Longer Active Harinder Hernandez DO Active LEVAQUIN 500 MG ORAL TABS Take 1 tab po daily x 8 days LEVOFLOXACIN 27190550714 No Longer Active Harinder Hernandez DO Active VENTOLIN HFA 108 (90 BASE) MCG/ACT AERS 2 -4 puffs four times a day PRN 2013 ALBUTEROL SULFATE 98675193078 No Longer Active Jeri Sosa RPT,RMA Active ACEBUTOLOL HCL 200 MG CAPS 1 cap in the morning and 2 caps in the evening ACEBUTOLOL HCL 99276609744 No Longer Active Harinder Hernandez DO Active CEFDINIR 300 MG ORAL CAPS take 1 cap po bid x 10 days CEFDINIR 42619897117 No Longer Active Harinder Hernandez DO Active LOVASTATIN 40 MG TABS 1 pill by mouth nightly for cholesterol LOVASTATIN 22937431831 No Longer Active Nettie Newberry APRN Active NITROSTAT 0.4 MG SUBL 1 tab under tongueas needed for chest pain ( may take 3 total, 5 min apart, then call 911) NITROGLYCERIN 45040960799 No Longer Active Nettie Newberry APRN Active POTASSIUM CHLORIDE CR 10 MEQ CPCR 1 capsule by mouth daily 02/14 POTASSIUM CHLORIDE 57160307221 No Longer Active Nettie eNwberry APRN Active TESSALON PERLES 100 MG CAP 1 to 2 tablets by mouth 3 times daily as needed for cough BENZONATATE 88279360842 No Longer Active Nettie Newberry APRN Active THEOPHYLLINE ER 200 MG ORAL [id number] Take 1 tab every 12 hours THEOPHYLLINE 45476009710 Active Tawnya Pardo MA Active PREDNISONE 20 MG TAB 2 po qd x 5 days PREDNISONE 14624471375 No Longer Active Jae Morgan MD Active AZITHROMYCIN 250 MG TABS 2 po qd x 1 day, then 1 po qd x 4 days AZITHROMYCIN 46342111230 No Longer Active Jae Morgan MD Active PREDNISONE 20 MG TAB 1 tab twice daily for 3 day, then one daily for three days PREDNISONE 94596667116 No Longer Active Jae Morgan MD Active SINGULAIR 10 MG TABS 1 pill by mouth every evening for breathing. MONTELUKAST SODIUM 17680848577 Active Tawnya Pardo MA Active TYLENOL 325 MG TAB 3 by mouth q4h as needed ACETAMINOPHEN 90420073996 Active Harinder Hernandez DO Active POTASSIUM CHLORIDE ER 10 MEQ CR-TABS take 1 tab po daily POTASSIUM CHLORIDE 70953456163 No Longer Active Harinder Hernandez DO Active PREDNISONE 20 MG TAB 1 TID x 2 days, then 1 BID x 3 days, then 1 Daily x 3 days, then stop PREDNISONE 31840387187 No Longer Active Derrickllkvng Montemayor APRN Active LEVAQUIN 500 MG TAB 1 tablet by mouth daily LEVOFLOXACIN 19545306386 No Longer Active Jillkvng Montemayor APRN Active NEURONTIN 300 MG CAP 1 cap by mouth three times daily for restless leg 06/22 GABAPENTIN 23323083689 No Longer Active Harinder Hernandez DO Active BENZONATATE 100 MG CAPS 1 cap po TID PRN BENZONATATE 91152652291 No Longer Active Harinder Hernandez DO Active MONTELUKAST SODIUM 10 MG TABS 1 tab po in the evening MONTELUKAST SODIUM 00102857284 No Longer Active Harinder Hernandez DO Active MUPIROCIN 2 % OINT apply to affected area BID x 14 days MUPIROCIN 10702075436 No Longer Active Harinder Hernandez DO Active TYLENOL EXTRA STRENGTH 500 MG TABS as needed ACETAMINOPHEN 81660196659 No Longer Active Harinder Hernandez DO Active PREDNISONE 10 MG TABS 1 tab po daily PREDNISONE 69970377890 No Longer Active Harinder Hernandez DO Active PREDNISONE 20 MG TAB 2 tabs daily for 4 days, 1 tab daily for 4 days, 1/2 tab daily for 4 days PREDNISONE 25928384956 No Longer Active Harinder Hernandez DO Active AZITHROMYCIN 250 MG TABS 2 po qd x 1 day, then 1 po qd x 4 days AZITHROMYCIN 63433879765 No Longer Active Harinder Hernandez DO Active PREDNISONE 20 MG TAB 3 tabs today, then 1 tab twice daily for 3 day, then one daily for three days PREDNISONE 94902422110 No Longer Active Harinder Hernandez DO Active NIFEDIAC CC 30 MG [id number] 1 tablet daily for raynaud's syndrome NIFEDIPINE 58715578451 No Longer Active Tawnya Pardo MA Active AMBIEN 10 MG TAB 1/2 tab by mouth at bedtime as needed for sleep ZOLPIDEM TARTRATE 04381493030 Active Harinder Hernandez DO Active CLONAZEPAM 1 MG TABS 1 tablet at bedtime for insomnia and restless legs 09/14 CLONAZEPAM 87708975736 Active Kaylah Newberry Active CLONAZEPAM 0.5 MG TABS 1 tab po daily CLONAZEPAM 84042232016 No Longer Active Harinder Hernandez DO Active PREDNISONE 10 MG TAB 1 tablet daily for COPD PREDNISONE 71393253746 Active Tawnya Pardo MA Active PROAIR HFA 108 (90 BASE) MCG/ACT AERS 2 puffs four times a day as needed 2012 ALBUTEROL SULFATE 02417455175 Active Tawnya Pardo MA Active FLOVENT HFA 110 MCG/ACT AERO 2 puffs inhaled b.i.d. FLUTICASONE PROPIONATE HFA 01807736778 Active Tawnya Pardo MA Active ACIPHEX 20 MG TBEC 1 tab po daily RABEPRAZOLE SODIUM 18015812669 Active Tawnya Pardo MA Active CLONAZEPAM 0.5 MG TABS 1 tab po daily CLONAZEPAM 0.5 MG TABS 198905 CLONAZEPAM Inactive PREDNISONE 20 MG TAB 3 tabs today, then 1 tab twice daily for 3 day, then one daily for three days PREDNISONE 20 MG TAB 623929 PREDNISONE Inactive PREDNISONE 20 MG TAB 2 tabs daily for 4 days, 1 tab daily for 4 days, 1/2 tab daily for 4 days PREDNISONE 20 MG TAB 216179 PREDNISONE Inactive PREDNISONE 10 MG TABS 1 tab po daily PREDNISONE 10 MG TABS 693860 PREDNISONE Inactive TYLENOL EXTRA STRENGTH 500 MG TABS as needed TYLENOL EXTRA STRENGTH 500 MG TABS 703550 ACETAMINOPHEN Inactive MUPIROCIN 2 % OINT apply to affected area BID x 14 days MUPIROCIN 2 % OINT 574396 MUPIROCIN Inactive MONTELUKAST SODIUM 10 MG TABS 1 tab po in the evening MONTELUKAST SODIUM 10 MG TABS 794480 MONTELUKAST SODIUM Inactive BENZONATATE 100 MG CAPS 1 cap po TID PRN BENZONATATE 100 MG CAPS 500740 BENZONATATE Inactive NEURONTIN 300 MG CAP 1 cap by mouth three times daily for restless leg 06/22 NEURONTIN 300 MG CAP 974624 GABAPENTIN Inactive LEVAQUIN 500 MG TAB 1 tablet by mouth daily LEVAQUIN 500 MG TAB 256678 LEVOFLOXACIN Inactive PREDNISONE 20 MG TAB 1 TID x 2 days, then 1 BID x 3 days, then 1 Daily x 3 days, then stop PREDNISONE 20 MG TAB 481432 PREDNISONE Inactive POTASSIUM CHLORIDE ER 10 MEQ CR-TABS take 1 tab po daily POTASSIUM CHLORIDE ER 10 MEQ CR-TABS POTASSIUM CHLORIDE Inactive PREDNISONE 20 MG TAB 1 tab twice daily for 3 day, then one daily for three days PREDNISONE 20 MG TAB 191562 PREDNISONE Inactive TESSALON PERLES 100 MG CAP 1 to 2 tablets by mouth 3 times daily as needed for cough TESSALON PERLES 100 MG CAP 295323 BENZONATATE Inactive POTASSIUM CHLORIDE CR 10 MEQ [...] nightly for cholesterol LOVASTATIN 40 MG TABS 989933 LOVASTATIN Inactive CEFDINIR 300 MG ORAL CAPS take 1 cap po bid x 10 days CEFDINIR 300 MG ORAL CAPS 415535 CEFDINIR Inactive ACEBUTOLOL HCL 200 MG CAPS 1 cap in the morning and 2 caps in the evening ACEBUTOLOL HCL 200 MG CAPS 186600 ACEBUTOLOL HCL Inactive VENTOLIN HFA 108 (90 BASE) MCG/ACT AERS 2 -4 puffs four times a day PRN 2013 VENTOLIN HFA 108 (90 BASE) MCG/ACT AERS ALBUTEROL SULFATE Inactive LEVAQUIN 500 MG ORAL TABS Take 1 tab po daily x 8 days LEVAQUIN 500 MG ORAL TABS 161127 LEVOFLOXACIN Inactive PREDNISONE 20 MG TAB 2 tabs daily for 4 days, 1 tab daily for 4 days, 1/2 tab daily for 4 days PREDNISONE 20 MG TAB 172788 PREDNISONE Inactive LOVASTATIN 40 MG ORAL TABS Take 1 tab po every hs LOVASTATIN 40 MG ORAL TABS 340488 LOVASTATIN Inactive DILAUDID 2 MG ORAL TABS Take 1/2 tab po every 4 hours as needed for pain 2014 DILAUDID 2 MG ORAL TABS 264228 HYDROMORPHONE HCL Inactive AMITRIPTYLINE HCL 25 MG ORAL TABS 1 q hs prn AMITRIPTYLINE HCL 25 MG ORAL TABS 267700 AMITRIPTYLINE HCL Inactive MECLIZINE HCL 25 MG TAB 1 tablet three times daily for 3 days, then 1/2 tab three times daily for 3 days. MECLIZINE HCL 25 MG TAB 573947 MECLIZINE HCL Inactive AMLODIPINE BESYLATE 5 MG ORAL TABS Take 1 tab po daily AMLODIPINE BESYLATE 5 MG ORAL TABS 252924 AMLODIPINE BESYLATE Inactive TOPIRAMATE 25 MG TABS 1 tab po BID TOPIRAMATE 25 MG TABS 308076 TOPIRAMATE Inactive PREDNISONE 20 MG TAB 1 tablet twice daily for 2 days, then 1 tablet once daily for 2 days PREDNISONE 20 MG TAB 225861 PREDNISONE Inactive PREDNISONE 20 MG TAB 1 tab twice daily for 3 day, then one daily for three days PREDNISONE 20 MG TAB 080163 PREDNISONE Inactive AZITHROMYCIN 250 MG TABS 2 po qd x 1 day, then 1 po qd x 4 days AZITHROMYCIN 250 MG TABS 1677385 AZITHROMYCIN Inactive AZITHROMYCIN 250 MG TABS 2 po qd x 1 day, then 1 po qd x 4 days AZITHROMYCIN 250 MG TABS 9590238 AZITHROMYCIN Inactive PREDNISONE 20 MG TAB 2 po qd x 5 days PREDNISONE 20 MG TAB 565595 PREDNISONE Inactive Vital Signs Date Name Value [...] Panel - Chemistry sodium, serum 138 mmol/L 532-722 8534/09/24 potassium, serum 3.5 mmol/L 3.5-5.2 chloride, serum [...] Magnesium - Chemistry cholesterol, serum 180 mg/dL 890-962 1829/08/08 triglyceride, serum, fasting 92 mg/dL 30-200 HDL cholesterol, serum 66 mg/dL 32-96 LDL cholesterol, serum 96 mg/dL 0-130 sodium, serum 142 mmol/L 431-128 8111/08/08 carbon dioxide, venous blood 27.4 mmol/L 21.0-32.0 [...] 10.0-20.0 Encounters Code Encounter Date Provider Facility CPT-88971 Level 3 Est. Patient 09:58:58 CDT Harinder Cr [facility] CPT-53057 Level 3 Est. Patient 12:37:21 CDT Harinder Cr [facility] CPT-76510 Level 3 Est. Patient 18:37:17 CDT Harinder Cr [facility] CPT-59811 Level 4 Est. Patient 11:15:54 CDT Nettie Newberry [facility] CPT-37720 Level 3 Est. Patient 16:42:24 CDT Harinder Cr [facility] CPT-93818 Level 3 Est. Patient 15:03:36 CDT Harinder Cr [facility] CPT-77992 Level 3 Est. Patient 15:03:20 CDT Harinder Cr [facility] CPT-78847 Level 3 Est. Patient 12:14:34 CDT Harinder Shaye [facility] CPT-83154 Level 3 Est. Patient 13:47:15 CDT Harinder Shaye [facility] CPT-34702 Level 3 Est. Patient 14:08:24 CDT Harinder Cr [facility] CPT-15613 Level 3 Est. Patient 10:07:15 CDT Harinder Cr [facility] CPT-11155 Level 3 Est. Patient 10:06:59 CDT Harinder Cr [facility] CPT-66101 Level 3 Est. Patient 15:53:29 CDT Jae Morgan MD [facility] CPT-72916 Level 3 Est. Patient 17:19:04 CDT Harinder Hernandez [facility] CPT-85125 Level 3 Est. Patient 11:13:01 CDT Harinder Cr [facility] CPT-18109 Level 3 Est. Patient 09:03:58 CDT Harinder Hernandez [facility] CPT-12147 Level 3 Est. Patient 14:46:45 SEO STRATEGIST Harinder Cr [facility] CPT-02879 Level 3 Est. Patient 09:35:49 SEO STRATEGIST Harinder Hernandez [facility] CPT-67033 Level 3 Est. Patient 09:29:37 SEO STRATEGIST Harinder Cr [facility] CPT-31818 Level 3 Est. Patient 15:51:07 CDT Harinder Cr [facility] CPT-16772 Level 3 Est. Patient 18:13:13 CDT Harinder Cr [facility] CPT-35742 Level 3 Est. Patient 10:44:19 CDT Harinder Cr [facility] CPT-08918 Level 4 Est. Patient 10:07:19 SEO STRATEGIST Harinder Cr [facility] CPT-31829 Level 3 Est. Patient 15:59:32 SEO STRATEGIST Harinder Cr [facility] Procedures Code Procedure Name Date Entry Date Standard Description CPT-TCMM Transitional Care Mgmt-Moderate 11:33:57 CDT CPT-01208 No Charge Offi Visit 14:11:29 CDT CPT-43722 Magnesium - LAB USE ONLY 10:45:44 CDT CPT-97759 Lipid - LAB USE ONLY 10:45:44 CDT CPT-04587 CBC - LAB USE ONLY 10:45:44 CDT CPT-28103 Venipuncture Draw Fee 10:45:43 CDT CPT-70951 Venipuncture Draw Fee 18:21:27 CDT CPT-JTINJ Asp/Joint Injection 18:38:04 CDT CPT-38775 Immunization Each Additional Inj 17:38:04 CDT CPT-37895 Immunization Single Admin 17:38:04 CDT CPT-90520 Prevnar 13 17:38:04 CDT CPT-17644 Fluzone Quadrivalent preservative free (>=3yrs.) 17:38: 04 CDT CPT-64710 No Charge Offi Visit 11:14:03 CDT CPT-32117 Chest 2V Frontal and Lat 14:00:18 CDT CPT-OV Office Visit 16:10:28 CDT CPT-JTINJ Asp/Joint Injection 09:03:57 CDT CPT-Cryo Cryotherapy 09:35:49 SEO STRATEGIST CPT-JTINJ Asp/Joint Injection 09:34:45 SEO STRATEGIST CPT-J2930 Solu Medrol 125 mg (Methyl Prednisolone Sodium Succinate) 20:37:27 CDT CPT-30801 Abx/Therapy Injection 20:37:27 CDT CPT-42546 Port a cath flush 08:15:51 CDT CPT-10544 Port a cath flush 09:54:16 CDT CPT-56982 Port a cath flush 09:38:02 CDT CPT-04424 Port a cath flush 11:00:27 SEO STRATEGIST
[2017-12-29 00:20] LABS: ALBUMIN 4.3 GM/DL (3.2-4.5); BILIRUBIN,TOTAL 0.3 MG/DL (0.1-1.0); CALCIUM 9.3 MG/DL (8.5-10.1); CREATININE SERUM 0.94 MG/DL (0.60-1.30); POTASSIUM 3.3 MMOL/L (3.6-5.0); TOTAL PROTEIN 7.2 GM/DL (6.4-8.2)
--- OUTSIDE RECORDS SUMMARY | 2017-12-29 00:20 | XMS REPORT | Clinical Summary ---
Author Author Admin, QIE Organization [facility] [place] Address Unknown Phone Unavailable Allergies, Adverse Reactions, [...] then one daily for three days PREDNISONE [id number] No Longer Active Harinder Hernandez DO Active PREDNISONE 20 MG TAB 1 tablet twice daily for 2 days, then 1 tablet once daily for 2 days PREDNISONE 93788883962 No Longer Active Harinder Hernandez DO Active ASMANEX 120 METERED DOSES 220 MCG/INH INH AEPB 2 puffs orally twice daily MOMETASONE FUROATE 23188095997 Active Jeri Sosa RPT,RMA Active NIFEDIPINE ER 30 MG ORAL [id number] 1 daily NIFEDIPINE 10789688096 Active Tawnya Pardo MA Active TOPIRAMATE 25 MG TABS 1 tab po BID TOPIRAMATE 78766374868 No Longer Active Nettie Newberry APRN Active AMLODIPINE BESYLATE 5 MG ORAL TABS Take 1 tab po daily AMLODIPINE BESYLATE 57382238298 No Longer Active Nettie Newberry APRN Active MECLIZINE HCL 25 MG TAB 1 tablet three times daily for 3 days, then 1/2 tab three times daily for 3 days. MECLIZINE HCL 79133409084 No Longer Active Nettie Newberry APRN Active AMITRIPTYLINE HCL 25 MG ORAL TABS 1 q hs prn AMITRIPTYLINE HCL 40880443722 No Longer Active Nettie Newberry APRN Active DILAUDID 2 MG ORAL TABS Take 1/2 tab po every 4 hours as needed for pain 2014 HYDROMORPHONE HCL 25071847761 No Longer Active Netite Newberry APRN Active CLOPIDOGREL BISULFATE 75 MG ORAL TABS 1 tab by mouth once daily CLOPIDOGREL BISULFATE 90521627490 Active Jeri Sosa RPT,RMA Active ATORVASTATIN CALCIUM 10 MG ORAL TABS 1 at bedtime ATORVASTATIN CALCIUM 79300772661 Active Jeri Sosa RPT,RMA Active LOVASTATIN 40 MG ORAL TABS Take 1 tab po every hs LOVASTATIN 12727088671 No Longer Active Harinder Hernandez DO Active PREDNISONE 20 MG TAB 2 tabs daily for 4 days, 1 tab daily for 4 days, 1/2 tab daily for 4 days PREDNISONE 17143840310 No Longer Active Harinder Hernandez DO Active LEVAQUIN 500 MG ORAL TABS Take 1 tab po daily x 8 days LEVOFLOXACIN 06801958214 No Longer Active Harinder Hernandez DO Active VENTOLIN HFA 108 (90 BASE) MCG/ACT AERS 2 -4 puffs four times a day PRN 2013 ALBUTEROL SULFATE 57828305708 No Longer Active Jeri Sosa RPT,RMA Active ACEBUTOLOL HCL 200 MG CAPS 1 cap in the morning and 2 caps in the evening ACEBUTOLOL HCL 25856418544 No Longer Active Harinder Hernandez DO Active CEFDINIR 300 MG ORAL CAPS take 1 cap po bid x 10 days CEFDINIR 26139223634 No Longer Active Harinder Hernandez DO Active LOVASTATIN 40 MG TABS 1 pill by mouth nightly for cholesterol LOVASTATIN 00166013530 No Longer Active Nettie Newberry APRN Active NITROSTAT 0.4 MG SUBL 1 tab under tongueas needed for chest pain ( may take 3 total, 5 min apart, then call 911) NITROGLYCERIN 90653616696 No Longer Active Nettie Newberry APRN Active POTASSIUM CHLORIDE CR 10 MEQ CPCR 1 capsule by mouth daily 02/14 POTASSIUM CHLORIDE 85280279277 No Longer Active Nettieog Newberry APRN Active TESSALON PERLES 100 MG CAP 1 to 2 tablets by mouth 3 times daily as needed for cough BENZONATATE 68063258427 No Longer Active Nettie Newberry APRN Active THEOPHYLLINE ER 200 MG ORAL [id number] Take 1 tab every 12 hours THEOPHYLLINE 97777211991 Active Jeri Sosa RPT,RMA Active PREDNISONE 20 MG TAB 2 po qd x 5 days PREDNISONE 07508377909 No Longer Active Jae Morgan MD Active AZITHROMYCIN 250 MG TABS 2 po qd x 1 day, then 1 po qd x 4 days AZITHROMYCIN 69753592526 No Longer Active Jae Morgan MD Active PREDNISONE 20 MG TAB 1 tab twice daily for 3 day, then one daily for three days PREDNISONE 51001939491 No Longer Active Jae Morgan MD Active SINGULAIR 10 MG TABS 1 pill by mouth every evening for breathing. MONTELUKAST SODIUM 64238652363 Active Tawnya Pardo MA Active TYLENOL 325 MG TAB 3 by mouth q4h as needed ACETAMINOPHEN 70644195837 Active Harinder Hernandez DO Active POTASSIUM CHLORIDE ER 10 MEQ CR-TABS take 1 tab po daily POTASSIUM CHLORIDE 87332199188 No Longer Active Harinder Hernandez DO Active PREDNISONE 20 MG TAB 1 TID x 2 days, then 1 BID x 3 days, then 1 Daily x 3 days, then stop PREDNISONE 10588774389 No Longer Active Jillina Frazell CLINICAL NURSE Active LEVAQUIN 500 MG TAB 1 tablet by mouth daily LEVOFLOXACIN 10995103580 No Longer Active Jillina Frazell CLINICAL NURSE Active NEURONTIN 300 MG CAP 1 cap by mouth three times daily for restless leg 06/22 GABAPENTIN 59253603610 No Longer Active Harinder Hernandez DO Active BENZONATATE 100 MG CAPS 1 cap po TID PRN BENZONATATE 48220965779 No Longer Active Harinder Hernandez DO Active MONTELUKAST SODIUM 10 MG TABS 1 tab po in the evening MONTELUKAST SODIUM 54179276698 No Longer Active Harinder Hernandez DO Active MUPIROCIN 2 % OINT apply to affected area BID x 14 days MUPIROCIN 67366917297 No Longer Active Harinder Hernandez DO Active TYLENOL EXTRA STRENGTH 500 MG TABS as needed ACETAMINOPHEN 13102188239 No Longer Active Harinder Hernandez DO Active PREDNISONE 10 MG TABS 1 tab po daily PREDNISONE 95882534625 No Longer Active Harinder Hernandez DO Active PREDNISONE 20 MG TAB 2 tabs daily for 4 days, 1 tab daily for 4 days, 1/2 tab daily for 4 days PREDNISONE 87646325232 No Longer Active Harinder Hernandez DO Active AZITHROMYCIN 250 MG TABS 2 po qd x 1 day, then 1 po qd x 4 days AZITHROMYCIN 07109832340 No Longer Active Harinder Hernandez DO Active PREDNISONE 20 MG TAB 3 tabs today, then 1 tab twice daily for 3 day, then one daily for three days PREDNISONE 83804624222 No Longer Active Harinder Hernandez DO Active NIFEDIAC CC 30 MG [id number]-[id number] 1 tablet daily for raynaud's syndrome NIFEDIPINE 88766338060 No Longer Active Tawnya Pardo MA Active AMBIEN 10 MG TAB 1/2 tab by mouth at bedtime as needed for sleep ZOLPIDEM TARTRATE 71578122022 Active Harinder Hernandez DO Active CLONAZEPAM 1 MG TABS 1 tablet at bedtime for insomnia and restless legs 09/14 CLONAZEPAM 60167636924 Active Jeri Sosa RPT,RMA Active CLONAZEPAM 0.5 MG TABS 1 tab po daily CLONAZEPAM 42515991014 No Longer Active Harinder Hernandez DO Active PREDNISONE 10 MG TAB 1 tablet daily for COPD PREDNISONE 91853973362 Active Tawnya Pardo MA Active PROAIR HFA 108 (90 BASE) MCG/ACT AERS 2 puffs four times a day as needed 2012 ALBUTEROL SULFATE 24185026337 Active Tawnya Pardo MA Active FLOVENT HFA 110 MCG/ACT AERO 2 puffs inhaled b.i.d. FLUTICASONE PROPIONATE HFA 56966305686 Active Tawnya Pardo MA Active EPIPEN 0.3 MG/0.3ML URIEL DIRECTED EPINEPHRINE Active Jeri Sosa RPT,RMA Active ACIPHEX 20 MG TBEC 1 tab po daily RABEPRAZOLE SODIUM 73200574411 Active Tawnya Pardo MA Active CLONAZEPAM 0.5 MG TABS 1 tab po daily CLONAZEPAM 0.5 MG TABS 352058 CLONAZEPAM Inactive PREDNISONE 20 MG TAB 3 tabs today, then 1 tab twice daily for 3 day, then one daily for three days PREDNISONE 20 MG TAB 535437 PREDNISONE Inactive PREDNISONE 20 MG TAB 2 tabs daily for 4 days, 1 tab daily for 4 days, 1/2 tab daily for 4 days PREDNISONE 20 MG TAB 525429 PREDNISONE Inactive PREDNISONE 10 MG TABS 1 tab po daily PREDNISONE 10 MG TABS 632983 PREDNISONE Inactive TYLENOL EXTRA STRENGTH 500 MG TABS as needed TYLENOL EXTRA STRENGTH 500 MG TABS 505231 ACETAMINOPHEN Inactive MUPIROCIN 2 % OINT apply to affected area BID x 14 days MUPIROCIN 2 % OINT 141673 MUPIROCIN Inactive MONTELUKAST SODIUM 10 MG TABS 1 tab po in the evening MONTELUKAST SODIUM 10 MG TABS 119971 MONTELUKAST SODIUM Inactive BENZONATATE 100 MG CAPS 1 cap po TID PRN BENZONATATE 100 MG CAPS 775565 BENZONATATE Inactive NEURONTIN 300 MG CAP 1 cap by mouth three times daily for restless leg 06/22 NEURONTIN 300 MG CAP 240268 GABAPENTIN Inactive LEVAQUIN 500 MG TAB 1 tablet by mouth daily LEVAQUIN 500 MG TAB 848647 LEVOFLOXACIN Inactive PREDNISONE 20 MG TAB 1 TID x 2 days, then 1 BID x 3 days, then 1 Daily x 3 days, then stop PREDNISONE 20 MG TAB 484233 PREDNISONE Inactive POTASSIUM CHLORIDE ER 10 MEQ CR-TABS take 1 tab po daily POTASSIUM CHLORIDE ER 10 MEQ CR-TABS POTASSIUM CHLORIDE Inactive PREDNISONE 20 MG TAB 1 tab twice daily for 3 day, then one daily for three days PREDNISONE 20 MG TAB 942745 PREDNISONE Inactive TESSALON PERLES 100 MG CAP 1 to 2 tablets by mouth 3 times daily as needed for cough TESSALON PERLES 100 MG CAP 665918 BENZONATATE Inactive POTASSIUM CHLORIDE CR 10 MEQ [...] nightly for cholesterol LOVASTATIN 40 MG TABS 178310 LOVASTATIN Inactive CEFDINIR 300 MG ORAL CAPS take 1 cap po bid x 10 days CEFDINIR 300 MG ORAL CAPS 151256 CEFDINIR Inactive ACEBUTOLOL HCL 200 MG CAPS 1 cap in the morning and 2 caps in the evening ACEBUTOLOL HCL 200 MG CAPS 006625 ACEBUTOLOL HCL Inactive VENTOLIN HFA 108 (90 BASE) MCG/ACT AERS 2 -4 puffs four times a day PRN 2013 VENTOLIN HFA 108 (90 BASE) MCG/ACT AERS ALBUTEROL SULFATE Inactive LEVAQUIN 500 MG ORAL TABS Take 1 tab po daily x 8 days LEVAQUIN 500 MG ORAL TABS 757079 LEVOFLOXACIN Inactive PREDNISONE 20 MG TAB 2 tabs daily for 4 days, 1 tab daily for 4 days, 1/2 tab daily for 4 days PREDNISONE 20 MG TAB 674948 PREDNISONE Inactive LOVASTATIN 40 MG ORAL TABS Take 1 tab po every hs LOVASTATIN 40 MG ORAL TABS 672332 LOVASTATIN Inactive DILAUDID 2 MG ORAL TABS Take 1/2 tab po every 4 hours as needed for pain 2014 DILAUDID 2 MG ORAL TABS 079640 HYDROMORPHONE HCL Inactive AMITRIPTYLINE HCL 25 MG ORAL TABS 1 q hs prn AMITRIPTYLINE HCL 25 MG ORAL TABS 773581 AMITRIPTYLINE HCL Inactive MECLIZINE HCL 25 MG TAB 1 tablet three times daily for 3 days, then 1/2 tab three times daily for 3 days. MECLIZINE HCL 25 MG TAB 534949 MECLIZINE HCL Inactive AMLODIPINE BESYLATE 5 MG ORAL TABS Take 1 tab po daily AMLODIPINE BESYLATE 5 MG ORAL TABS 102875 AMLODIPINE BESYLATE Inactive TOPIRAMATE 25 MG TABS 1 tab po BID TOPIRAMATE 25 MG TABS 907818 TOPIRAMATE Inactive PREDNISONE 20 MG TAB 1 tablet twice daily for 2 days, then 1 tablet once daily for 2 days PREDNISONE 20 MG TAB 428588 PREDNISONE Inactive PREDNISONE 20 MG TAB 1 tab twice daily for 3 day, then one daily for three days PREDNISONE 20 MG TAB 827220 PREDNISONE Inactive AZITHROMYCIN 250 MG TABS 2 po qd x 1 day, then 1 po qd x 4 days AZITHROMYCIN 250 MG TABS 5371727 AZITHROMYCIN Inactive AZITHROMYCIN 250 MG TABS 2 po qd x 1 day, then 1 po qd x 4 days AZITHROMYCIN 250 MG TABS 0832409 AZITHROMYCIN Inactive PREDNISONE 20 MG TAB 2 po qd x 5 days PREDNISONE 20 MG TAB 195500 PREDNISONE Inactive Vital Signs Date Name Value [...] Panel - Chemistry sodium, serum 138 mmol/L 962-607 2035/09/24 potassium, serum 3.5 mmol/L 3.5-5.2 chloride, serum [...] Magnesium - Chemistry cholesterol, serum 180 mg/dL 712-712 7220/08/08 triglyceride, serum, fasting 92 mg/dL 30-200 HDL cholesterol, serum 66 mg/dL 32-96 LDL cholesterol, serum 96 mg/dL 0-130 sodium, serum 142 mmol/L 986-741 6523/08/08 carbon dioxide, venous blood 27.4 mmol/L 21.0-32.0 [...] 10.0-20.0 Encounters Code Encounter Date Provider Facility CPT-82033 Level 3 Est. Patient 09:58:58 CDT Harinder Shaye [facility] CPT-53139 Level 3 Est. Patient 12:37:21 CDT Harinder Cr [facility] CPT-37594 Level 3 Est. Patient 18:37:17 CDT Harinder Cr [facility] CPT-95141 Level 4 Est. Patient 11:15:54 CDT Nettie Newberry [facility] CPT-21843 Level 3 Est. Patient 16:42:24 CDT Harinder Cr [facility] CPT-96717 Level 3 Est. Patient 15:03:36 CDT Harinder Cr [facility] CPT-35188 Level 3 Est. Patient 15:03:20 CDT Harinder Cr [facility] CPT-85450 Level 3 Est. Patient 12:14:34 CDT Harinder Shaye [facility] CPT-87391 Level 3 Est. Patient 13:47:15 CDT Harinder Cr [facility] CPT-02697 Level 3 Est. Patient 14:08:24 CDT Harinder Cr [facility] CPT-34886 Level 3 Est. Patient 10:07:15 CDT Harinder Cr [facility] CPT-30125 Level 3 Est. Patient 10:06:59 CDT Harinder Cr [facility] CPT-02054 Level 3 Est. Patient 15:53:29 CDT Jae Morgan MD [facility] CPT-23394 Level 3 Est. Patient 17:19:04 CDT Harinder Shaye David [facility] CPT-41471 Level 3 Est. Patient 11:13:01 CDT Harinder Hernandez [facility] CPT-63615 Level 3 Est. Patient 09:03:58 CDT Harinder Hernandez [facility] CPT-55167 Level 3 Est. Patient 14:46:45 EMBEDDED ENGINEER Harinder Shaye David [facility] CPT-13324 Level 3 Est. Patient 09:35:49 EMBEDDED ENGINEER Harinder Shaye David [facility] CPT-97424 Level 3 Est. Patient 09:29:37 EMBEDDED ENGINEER Harinder Shaye David [facility] CPT-90408 Level 3 Est. Patient 15:51:07 CDT Harinder Hernandez [facility] CPT-50038 Level 3 Est. Patient 18:13:13 CDT Harinder Cr [facility] CPT-03845 Level 3 Est. Patient 10:44:19 CDT Harinder Hernandez [facility] CPT-81837 Level 4 Est. Patient 10:07:19 EMBEDDED ENGINEER Harinder Cr [facility] CPT-34370 Level 3 Est. Patient 15:59:32 EMBEDDED ENGINEER Harinder Cr [facility] Procedures Code Procedure Name Date Entry Date Standard Description CPT-TCMM Transitional Care Mgmt-Moderate 11:33:57 CDT CPT-75958 No Charge Offi Visit 14:11:29 CDT CPT-82243 Magnesium - LAB USE ONLY 10:45:44 CDT CPT-43230 Lipid - LAB USE ONLY 10:45:44 CDT CPT-72748 CBC - LAB USE ONLY 10:45:44 CDT CPT-41617 Venipuncture Draw Fee 10:45:43 CDT CPT-19658 Venipuncture Draw Fee 18:21:27 CDT CPT-JTINJ Asp/Joint Injection 18:38:04 CDT CPT-44576 Immunization Each Additional Inj 17:38:04 CDT CPT-11707 Immunization Single Admin 17:38:04 CDT CPT-43360 Prevnar 13 17:38:04 CDT CPT-82545 Fluzone Quadrivalent preservative free (>=3yrs.) 17:38: 04 CDT CPT-63727 No Charge Offi Visit 11:14:03 CDT CPT-36018 Chest 2V Frontal and Lat 14:00:18 CDT CPT-OV Office Visit 16:10:28 CDT CPT-JTINJ Asp/Joint Injection 09:03:57 CDT CPT-Cryo Cryotherapy 09:35:49 EMBEDDED ENGINEER CPT-JTINJ Asp/Joint Injection 09:34:45 EMBEDDED ENGINEER CPT-J2930 Solu Medrol 125 mg (Methyl Prednisolone Sodium Succinate) 20:37:27 CDT CPT-26438 Abx/Therapy Injection 20:37:27 CDT CPT-09061 Port a cath flush 08:15:51 CDT CPT-26421 Port a cath flush 09:54:16 CDT CPT-84608 Port a cath flush 09:38:02 CDT CPT-68244 Port a cath flush 11:00:27 EMBEDDED ENGINEER
--- OUTSIDE RECORDS SUMMARY | 2017-12-29 00:21 | XMS REPORT | Clinical Summary ---
Author Author Admin, QIE Organization [facility] Address Unknown Phone Unavailable Allergies, Adverse Reactions, [...] 2 puffs orally twice daily MOMETASONE FUROATE 94552713784 Active Jeri Sosa RPT,RMA Active NIFEDIPINE ER 30 MG ORAL [id number] 1 daily NIFEDIPINE 38857984977 Active Tawnya Pardo MA Active TOPIRAMATE 25 MG TABS 1 tab po BID TOPIRAMATE [id number] No Longer Active Nettie Newberry APRN Active AMLODIPINE BESYLATE 5 MG ORAL TABS Take 1 tab po daily AMLODIPINE BESYLATE 27460996006 No Longer Active Nettie Newberry APRN Active MECLIZINE HCL 25 MG TAB 1 tablet three times daily for 3 days, then 1/2 tab three times daily for 3 days. MECLIZINE HCL 35358258502 No Longer Active Nettie Newberry APRN Active AMITRIPTYLINE HCL 25 MG ORAL TABS 1 q hs prn AMITRIPTYLINE HCL 05133019282 No Longer Active Nettie Newberry APRN Active DILAUDID 2 MG ORAL TABS Take 1/2 tab po every 4 hours as needed for pain 2014 HYDROMORPHONE HCL 52856552015 No Longer Active Nettie Newberry APRN Active CLOPIDOGREL BISULFATE 75 MG ORAL TABS 1 tab by mouth once daily CLOPIDOGREL BISULFATE 97540814878 Active Tawnya Pardo MA Active ATORVASTATIN CALCIUM 10 MG ORAL TABS 1 at bedtime ATORVASTATIN CALCIUM 47561651876 Active Tawnya Pardo MA Active LOVASTATIN 40 MG ORAL TABS Take 1 tab po every hs LOVASTATIN 74932387611 No Longer Active Harinder Hernandez DO Active PREDNISONE 20 MG TAB 2 tabs daily for 4 days, 1 tab daily for 4 days, 1/2 tab daily for 4 days PREDNISONE 63320581146 No Longer Active Harinder Hernandez DO Active LEVAQUIN 500 MG ORAL TABS Take 1 tab po daily x 8 days LEVOFLOXACIN 56518115066 No Longer Active Harinder Hernandez DO Active VENTOLIN HFA 108 (90 BASE) MCG/ACT AERS 2 -4 puffs four times a day PRN 2013 ALBUTEROL SULFATE 69273109529 No Longer Active Jeri Sosa RPT,RMA Active ACEBUTOLOL HCL 200 MG CAPS 1 cap in the morning and 2 caps in the evening ACEBUTOLOL HCL 77325289796 No Longer Active Harinder Hernandez DO Active CEFDINIR 300 MG ORAL CAPS take 1 cap po bid x 10 days CEFDINIR 98003266676 No Longer Active Harinder Hernandez DO Active LOVASTATIN 40 MG TABS 1 pill by mouth nightly for cholesterol LOVASTATIN 44822726558 No Longer Active Nettie Newberry MAHENDRA Active NITROSTAT 0.4 MG SUBL 1 tab under tongueas needed for chest pain ( may take 3 total, 5 min apart, then call 911) NITROGLYCERIN 48366812863 No Longer Active Nettieog Newberry APRN Active POTASSIUM CHLORIDE CR 10 MEQ CPCR 1 capsule by mouth daily 02/14 POTASSIUM CHLORIDE 57676031221 No Longer Active Nettie Newberry MAHENDRA Active TESSALON PERLES 100 MG CAP 1 to 2 tablets by mouth 3 times daily as needed for cough BENZONATATE 75138558608 No Longer Active Nettieog Newberry APRN Active THEOPHYLLINE ER 200 MG ORAL [id number] Take 1 tab every 12 hours THEOPHYLLINE 41877008734 Active Tawnya Pardo MA Active PREDNISONE 20 MG TAB 2 po qd x 5 days PREDNISONE 23005756193 No Longer Active Jae Morgan MD Active AZITHROMYCIN 250 MG TABS 2 po qd x 1 day, then 1 po qd x 4 days AZITHROMYCIN 94434057254 No Longer Active Jae Morgan MD Active PREDNISONE 20 MG TAB 1 tab twice daily for 3 day, then one daily for three days PREDNISONE 76896490205 No Longer Active Jae Morgan MD Active SINGULAIR 10 MG TABS 1 pill by mouth every evening for breathing. MONTELUKAST SODIUM 22915269626 Active Tawnya Pardo MA Active TYLENOL 325 MG TAB 3 by mouth q4h as needed ACETAMINOPHEN 51858636552 Active Harinder Hernandez DO Active POTASSIUM CHLORIDE ER 10 MEQ CR-TABS take 1 tab po daily POTASSIUM CHLORIDE 11731705654 No Longer Active Harinder Hernandez DO Active PREDNISONE 20 MG TAB 1 TID x 2 days, then 1 BID x 3 days, then 1 Daily x 3 days, then stop PREDNISONE 60427706039 No Longer Active Jillina Frazell LODGE ATTENDANT Active LEVAQUIN 500 MG TAB 1 tablet by mouth daily LEVOFLOXACIN 52434064627 No Longer Active Jillina Frazell LODGE ATTENDANT Active NEURONTIN 300 MG CAP 1 cap by mouth three times daily for restless leg 06/22 GABAPENTIN 23900073706 No Longer Active Harinder Hernandez DO Active BENZONATATE 100 MG CAPS 1 cap po TID PRN BENZONATATE 82670597083 No Longer Active Harinder Hernandez DO Active MONTELUKAST SODIUM 10 MG TABS 1 tab po in the evening MONTELUKAST SODIUM 72819161330 No Longer Active Harinder Hernandez DO Active MUPIROCIN 2 % OINT apply to affected area BID x 14 days MUPIROCIN 40186762630 No Longer Active Harinder Hernandez DO Active TYLENOL EXTRA STRENGTH 500 MG TABS as needed ACETAMINOPHEN 95321635723 No Longer Active Harinder Hernandez DO Active PREDNISONE 10 MG TABS 1 tab po daily PREDNISONE 74208397330 No Longer Active Harinder Hernandez DO Active PREDNISONE 20 MG TAB 2 tabs daily for 4 days, 1 tab daily for 4 days, 1/2 tab daily for 4 days PREDNISONE 92737340288 No Longer Active Harinder Hernandez DO Active AZITHROMYCIN 250 MG TABS 2 po qd x 1 day, then 1 po qd x 4 days AZITHROMYCIN 17478752851 No Longer Active Harinder Hernandez DO Active PREDNISONE 20 MG TAB 3 tabs today, then 1 tab twice daily for 3 day, then one daily for three days PREDNISONE 66339140570 No Longer Active Harinder Hernandez DO Active NIFEDIAC CC 30 MG [id number] 1 tablet daily for raynaud's syndrome NIFEDIPINE 98882160777 No Longer Active Tawnya Pardo MA Active AMBIEN 10 MG TAB 1/2 tab by mouth at bedtime as needed for sleep ZOLPIDEM TARTRATE 24514537838 Active Harinder Hernandez DO Active CLONAZEPAM 1 MG TABS 1 tablet at bedtime for insomnia and restless legs 09/14 CLONAZEPAM 26101476664 Active Harinder Hernandez DO Active CLONAZEPAM 0.5 MG TABS 1 tab po daily CLONAZEPAM 14472438235 No Longer Active Harinder Hernandez DO Active PREDNISONE 10 MG TAB 1 tablet daily for COPD PREDNISONE 89959794745 Active Tawnya Pardo MA Active PROAIR HFA 108 (90 BASE) MCG/ACT AERS 2 puffs four times a day as needed 2012 ALBUTEROL SULFATE 56853376721 Active Tawnya Pardo MA Active FLOVENT HFA 110 MCG/ACT AERO 2 puffs inhaled b.i.d. FLUTICASONE PROPIONATE HFA 35616542996 Active Tawnya Pardo MA Active EPIPEN 0.3 MG/0.3ML URIEL DIRECTED EPINEPHRINE Active Jeri Sosa RPT,RMA Active ACIPHEX 20 MG TBEC 1 tab po daily RABEPRAZOLE SODIUM 64763566896 Active Tawnya Pardo MA Active CLONAZEPAM 0.5 MG TABS 1 tab po daily CLONAZEPAM 0.5 MG TABS 937415 CLONAZEPAM Inactive PREDNISONE 20 MG TAB 3 tabs today, then 1 tab twice daily for 3 day, then one daily for three days PREDNISONE 20 MG TAB 110452 PREDNISONE Inactive PREDNISONE 20 MG TAB 2 tabs daily for 4 days, 1 tab daily for 4 days, 1/2 tab daily for 4 days PREDNISONE 20 MG TAB 939520 PREDNISONE Inactive PREDNISONE 10 MG TABS 1 tab po daily PREDNISONE 10 MG TABS 100899 PREDNISONE Inactive TYLENOL EXTRA STRENGTH 500 MG TABS as needed TYLENOL EXTRA STRENGTH 500 MG TABS 564275 ACETAMINOPHEN Inactive MUPIROCIN 2 % OINT apply to affected area BID x 14 days MUPIROCIN 2 % OINT 747099 MUPIROCIN Inactive MONTELUKAST SODIUM 10 MG TABS 1 tab po in the evening MONTELUKAST SODIUM 10 MG TABS 20010818 MONTELUKAST SODIUM Inactive BENZONATATE 100 MG CAPS 1 cap po TID PRN BENZONATATE 100 MG CAPS 897623 BENZONATATE Inactive NEURONTIN 300 MG CAP 1 cap by mouth three times daily for restless leg 06/22 NEURONTIN 300 MG CAP 164202 GABAPENTIN Inactive LEVAQUIN 500 MG TAB 1 tablet by mouth daily LEVAQUIN 500 MG TAB 731890 LEVOFLOXACIN Inactive PREDNISONE 20 MG TAB 1 TID x 2 days, then 1 BID x 3 days, then 1 Daily x 3 days, then stop PREDNISONE 20 MG TAB 069584 PREDNISONE Inactive POTASSIUM CHLORIDE ER 10 MEQ CR-TABS take 1 tab po daily POTASSIUM CHLORIDE ER 10 MEQ CR-TABS POTASSIUM CHLORIDE Inactive PREDNISONE 20 MG TAB 1 tab twice daily for 3 day, then one daily for three days PREDNISONE 20 MG TAB 820891 PREDNISONE Inactive TESSALON PERLES 100 MG CAP 1 to 2 tablets by mouth 3 times daily as needed for cough TESSALON PERLES 100 MG CAP 376589 BENZONATATE Inactive POTASSIUM CHLORIDE CR 10 MEQ [...] nightly for cholesterol LOVASTATIN 40 MG TABS 113972 LOVASTATIN Inactive CEFDINIR 300 MG ORAL CAPS take 1 cap po bid x 10 days CEFDINIR 300 MG ORAL CAPS 312986 CEFDINIR Inactive ACEBUTOLOL HCL 200 MG CAPS 1 cap in the morning and 2 caps in the evening ACEBUTOLOL HCL 200 MG CAPS 966758 ACEBUTOLOL HCL Inactive VENTOLIN HFA 108 (90 BASE) MCG/ACT AERS 2 -4 puffs four times a day PRN 2013 VENTOLIN HFA 108 (90 BASE) MCG/ACT AERS ALBUTEROL SULFATE Inactive LEVAQUIN 500 MG ORAL TABS Take 1 tab po daily x 8 days LEVAQUIN 500 MG ORAL TABS 696878 LEVOFLOXACIN Inactive PREDNISONE 20 MG TAB 2 tabs daily for 4 days, 1 tab daily for 4 days, 1/2 tab daily for 4 days PREDNISONE 20 MG TAB 881486 PREDNISONE Inactive LOVASTATIN 40 MG ORAL TABS Take 1 tab po every hs LOVASTATIN 40 MG ORAL TABS 167380 LOVASTATIN Inactive DILAUDID 2 MG ORAL TABS Take 1/2 tab po every 4 hours as needed for pain 2014 DILAUDID 2 MG ORAL TABS 308117 HYDROMORPHONE HCL Inactive AMITRIPTYLINE HCL 25 MG ORAL TABS 1 q hs prn AMITRIPTYLINE HCL 25 MG ORAL TABS 297051 AMITRIPTYLINE HCL Inactive MECLIZINE HCL 25 MG TAB 1 tablet three times daily for 3 days, then 1/2 tab three times daily for 3 days. MECLIZINE HCL 25 MG TAB 494249 MECLIZINE HCL Inactive AMLODIPINE BESYLATE 5 MG ORAL TABS Take 1 tab po daily AMLODIPINE BESYLATE 5 MG ORAL TABS 307487 AMLODIPINE BESYLATE Inactive TOPIRAMATE 25 MG TABS 1 tab po BID TOPIRAMATE 25 MG TABS 584835 TOPIRAMATE Inactive AZITHROMYCIN 250 MG TABS 2 po qd x 1 day, then 1 po qd x 4 days AZITHROMYCIN 250 MG TABS 1336061 AZITHROMYCIN Inactive AZITHROMYCIN 250 MG TABS 2 po qd x 1 day, then 1 po qd x 4 days AZITHROMYCIN 250 MG TABS 3082676 AZITHROMYCIN Inactive PREDNISONE 20 MG TAB 2 po qd x 5 days PREDNISONE 20 MG TAB 169674 PREDNISONE Inactive Vital Signs Date Name Value [...] pressure, diastolic - 8462-4 71 mm[Hg] BP aadn blood pressure, systolic - 8480-6 124 mm[Hg] [...] Panel - Chemistry sodium, serum 138 mmol/L 622-333 6593/09/24 potassium, serum 3.5 mmol/L 3.5-5.2 chloride, serum [...] 142-424 Encounters Code Encounter Date Provider Facility CPT-07748 Level 3 Est. Patient 18:37:17 CDT Harinder Cr [facility] CPT-47529 Level 4 Est. Patient 11:15:54 CDT Nettie Newberry APRN [facility] CPT-51302 Level 3 Est. Patient 16:42:24 CDT Hairnder Cr [facility] CPT-61362 Level 3 Est. Patient 15:03:36 CDT Harinder Hernandez [facility] CPT-08107 Level 3 Est. Patient 15:03:20 CDT Harinder Cr [facility] CPT-72712 Level 3 Est. Patient 12:14:34 CDT Harinder Hernnadez [facility] CPT-05775 Level 3 Est. Patient 13:47:15 CDT Harinder Hernandez [facility] CPT-54410 Level 3 Est. Patient 14:08:24 CDT Harinder Hernandez [facility] CPT-09900 Level 3 Est. Patient 10:07:15 CDT Harinder Cr [facility] CPT-65564 Level 3 Est. Patient 10:06:59 CDT Harinder Hernandez [facility] CPT-54899 Level 3 Est. Patient 15:53:29 CDT Jae Morgan MD [facility] CPT-88131 Level 3 Est. Patient 17:19:04 CDT Harinder W David [facility] CPT-88231 Level 3 Est. Patient 11:13:01 CDT Harinder Hernandez [facility] CPT-58122 Level 3 Est. Patient 09:03:58 CDT Harinder Hernandez [facility] CPT-92203 Level 3 Est. Patient 14:46:45 BRICK CLEANER Harinder Hernandez [facility] CPT-41917 Level 3 Est. Patient 09:35:49 BRICK CLEANER Harinder Hernandez [facility] CPT-18360 Level 3 Est. Patient 09:29:37 BRICK CLEANER Harinder Hernandez [facility] CPT-49319 Level 3 Est. Patient 15:51:07 CDT Harinder Hernandez [facility] CPT-77078 Level 3 Est. Patient 18:13:13 CDT Harinder Cr [facility] CPT-20451 Level 3 Est. Patient 10:44:19 CDT Harinder Cr [facility] CPT-33595 Level 4 Est. Patient 10:07:19 BRICK CLEANER Harinder Cr [facility] CPT-57782 Level 3 Est. Patient 15:59:32 BRICK CLEANER Harinder Cr [facility] Procedures Code Procedure Name Date Entry Date Standard Description CPT-JTINJ Asp/Joint Injection 18:38:04 CDT CPT-10149 Immunization Each Additional Inj 17:38:04 CDT CPT-83861 Immunization Single Admin 17:38:04 CDT CPT-41981 Prevnar 13 17:38:04 CDT CPT-80318 Fluzone Quadrivalent preservative free (>=3yrs.) 17:38: 04 CDT CPT-80225 No Charge Offi Visit 11:14:03 CDT CPT-94115 Chest 2V Frontal and Lat 14:00:18 CDT CPT-OV Office Visit 16:10:28 CDT CPT-JTINJ Asp/Joint Injection 09:03:57 CDT CPT-Cryo Cryotherapy 09:35:49 BRICK CLEANER CPT-JTINJ Asp/Joint Injection 09:34:45 BRICK CLEANER CPT-J2930 Solu Medrol 125 mg (Methyl Prednisolone Sodium Succinate) 20:37:27 CDT CPT-89087 Abx/Therapy Injection 20:37:27 CDT CPT-23999 Port a cath flush 08:15:51 CDT CPT-44133 Port a cath flush 09:54:16 CDT CPT-01486 Port a cath flush 09:38:02 CDT CPT-31675 Port a cath flush 11:00:27 BRICK CLE[employer]ER
--- OUTSIDE RECORDS SUMMARY | 2017-12-29 00:22 | XMS REPORT | Clinical Summary ---
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 NIFEDIPINE 79305771610 Active Harinder Hernandez DO Active AMLODIPINE BESYLATE 5 MG TABS 1 tablet by mouth daily AMLODIPINE BESYLATE 89864735831 No Longer Active Harinder Hernandez DO Active TOPAMAX 25 MG ORAL TABS 1 tab po BID TOPIRAMATE 35831804107 Active Kortney Mccain Active FLUTICASONE PROPIONATE 50 MCG/ACT SUSP 2 sprays per nostril daily PRN Allergies FLUTICASONE PROPIONATE 02721801300 Active Kortney Mccain Active NIFEDIPINE ER 30 MG ORAL [id number] 1 daily NIFEDIPINE 73981455637 No Longer Active Harinder Hernandez DO Active POTASSIUM CHLORIDE 20 MEQ ORAL PACK Take 1 tablet by mouth daily POTASSIUM CHLORIDE 29081106297 Prince Pimentel Active FLOVENT HFA 110 MCG/ACT AERO 2 puffs inhaled b.i.d. FLUTICASONE PROPIONATE HFA 66033538408 Active Harinder Hernandez DO Active POTASSIUM CHLORIDE CR 10 MEQ CPCR 1 capsule by mouth daily POTASSIUM CHLORIDE 05444784543 Active Harinder W David DO Active EPIPEN 2-BRUNA 0.3 MG/0.3ML INJ SOAJ 1 INJ NEEDED EPINEPHRINE 89649251505 Active Harinder Hernandez DO Active PREDNISONE 20 MG TAB 1 tab twice daily for 3 day, then one daily for three days PREDNISONE 21553178884 No Longer Active Harinder Hernandez DO Active PREDNISONE 20 MG TAB 1 tablet twice daily for 2 days, then 1 tablet once daily for 2 days PREDNISONE 87156732597 No Longer Active Harinder Hernandez DO Active ASMANEX 120 METERED DOSES 220 MCG/INH INH AEPB 2 puffs orally twice daily MOMETASONE FUROATE 97750123505 Active Jeri Sosa RPT,RMA Active TOPIRAMATE 25 MG TABS 1 tab po BID TOPIRAMATE 02112407804 No Longer Active Nettie Newberry APRN Active AMLODIPINE BESYLATE 5 MG ORAL TABS Take 1 tab po daily AMLODIPINE BESYLATE 80686891499 No Longer Active Nettie Newberry APRN Active MECLIZINE HCL 25 MG TAB 1 tablet three times daily for 3 days, then 1/2 tab three times daily for 3 days. MECLIZINE HCL 36420933233 No Longer Active Nettie Newberry APRN Active AMITRIPTYLINE HCL 25 MG ORAL TABS 1 q hs prn AMITRIPTYLINE HCL 76196335940 No Longer Active Nettie Newberry APRN Active DILAUDID 2 MG ORAL TABS Take 1/2 tab po every 4 hours as needed for pain 2014 HYDROMORPHONE HCL 73398604431 No Longer Active Nettie Newberry APRN Active CLOPIDOGREL BISULFATE 75 MG ORAL TABS 1 tab by mouth once daily CLOPIDOGREL BISULFATE 91443754385 Active Harinder Hernandez DO Active ATORVASTATIN CALCIUM 10 MG ORAL TABS 1 at bedtime ATORVASTATIN CALCIUM 21372693886 Active Tawnya Pardo MA Active LOVASTATIN 40 MG ORAL TABS Take 1 tab po every hs LOVASTATIN 09165967295 No Longer Active Harinder W David DO Active PREDNISONE 20 MG TAB 2 tabs daily for 4 days, 1 tab daily for 4 days, 1/2 tab daily for 4 days PREDNISONE 42231914789 No Longer Active Harinder Hernandez DO Active LEVAQUIN 500 MG ORAL TABS Take 1 tab po daily x 8 days LEVOFLOXACIN 07588253747 No Longer Active Harinder Hernandez DO Active VENTOLIN HFA 108 (90 BASE) MCG/ACT AERS 2 -4 puffs four times a day PRN 2013 ALBUTEROL SULFATE 28321169765 No Longer Active Jeri Sosa RPT,RMA Active ACEBUTOLOL HCL 200 MG CAPS 1 cap in the morning and 2 caps in the evening ACEBUTOLOL HCL 37020947329 No Longer Active Harinder Hernandez DO Active CEFDINIR 300 MG ORAL CAPS take 1 cap po bid x 10 days CEFDINIR 70058584782 No Longer Active Harinder Hernandez DO Active LOVASTATIN 40 MG TABS 1 pill by mouth nightly for cholesterol LOVASTATIN 41792276157 No Longer Active Nettie Newberry APRN Active NITROSTAT 0.4 MG SUBL 1 tab under tongueas needed for chest pain ( may take 3 total, 5 min apart, then call 911) NITROGLYCERIN 99168033491 No Longer Active Nettie Newberry APRN Active POTASSIUM CHLORIDE CR 10 MEQ CPCR 1 capsule by mouth daily 02/14 POTASSIUM CHLORIDE 87376669714 No Longer Active Nettie Newberry APRN Active TESSALON PERLES 100 MG CAP 1 to 2 tablets by mouth 3 times daily as needed for cough BENZONATATE 79885516696 No Longer Active Nettie Newberry APRN Active THEOPHYLLINE ER 200 MG ORAL [id number] Take 1 tab every 12 hours THEOPHYLLINE 65410067310 Active Kortney Mccain Active PREDNISONE 20 MG TAB 2 po qd x 5 days PREDNISONE 53772150865 No Longer Active Jae Morgan MD Active AZITHROMYCIN 250 MG TABS 2 po qd x 1 day, then 1 po qd x 4 days AZITHROMYCIN 54354307787 No Longer Active Jae Morgan MD Active PREDNISONE 20 MG TAB 1 tab twice daily for 3 day, then one daily for three days PREDNISONE 19121894921 No Longer Active Jae Morgan MD Active SINGULAIR 10 MG TABS 1 pill by mouth every evening for breathing. MONTELUKAST SODIUM 75637147105 Active Tawnya Pardo MA Active TYLENOL 325 MG TAB 3 by mouth q4h as needed ACETAMINOPHEN 09788531035 Active Harinder Hernandez DO Active POTASSIUM CHLORIDE ER 10 MEQ CR-TABS take 1 tab po daily POTASSIUM CHLORIDE 04966405034 No Longer Active Harinder Hernandez DO Active PREDNISONE 20 MG TAB 1 TID x 2 days, then 1 BID x 3 days, then 1 Daily x 3 days, then stop PREDNISONE 64766165355 No Longer Active Jillina Frazell STATISTICS MANAGER Active LEVAQUIN 500 MG TAB 1 tablet by mouth daily LEVOFLOXACIN 95051549153 No Longer Active Jillina Frazell STATISTICS MANAGER Active NEURONTIN 300 MG CAP 1 cap by mouth three times daily for restless leg 06/22 GABAPENTIN 97534711632 No Longer Active Harinder Hernanedz DO Active BENZONATATE 100 MG CAPS 1 cap po TID PRN BENZONATATE 71955797355 No Longer Active Harinder Hernandez DO Active MONTELUKAST SODIUM 10 MG TABS 1 tab po in the evening MONTELUKAST SODIUM 61652528899 No Longer Active Harinder Hernandez DO Active MUPIROCIN 2 % OINT apply to affected area BID x 14 days MUPIROCIN 35746136784 No Longer Active Harinder Hernandez DO Active TYLENOL EXTRA STRENGTH 500 MG TABS as needed ACETAMINOPHEN 02722721263 No Longer Active Harinder Hernandez DO Active PREDNISONE 10 MG TABS 1 tab po daily PREDNISONE 55175403686 No Longer Active Harinder Hernandez DO Active PREDNISONE 20 MG TAB 2 tabs daily for 4 days, 1 tab daily for 4 days, 1/2 tab daily for 4 days PREDNISONE 62128341339 No Longer Active Harinder Hernandez DO Active AZITHROMYCIN 250 MG TABS 2 po qd x 1 day, then 1 po qd x 4 days AZITHROMYCIN 45430617368 No Longer Active Harinder Hernandez DO Active PREDNISONE 20 MG TAB 3 tabs today, then 1 tab twice daily for 3 day, then one daily for three days PREDNISONE 68803121523 No Longer Active Hrainder Hernandez DO Active NIFEDIAC CC 30 MG [id number] 1 tablet daily for raynaud's syndrome NIFEDIPINE 92311825252 No Longer Active Tawnya Pardo MA Active AMBIEN 10 MG TAB 1/2 tab by mouth at bedtime as needed for sleep ZOLPIDEM TARTRATE 70935900068 Active Ciera Pimentel Active CLONAZEPAM 1 MG TABS 1 tablet at bedtime for insomnia and restless legs 09/14 CLONAZEPAM 95113888527 Active Harinder Hernandez DO Active CLONAZEPAM 0.5 MG TABS 1 tab po daily CLONAZEPAM 87051826565 No Longer Active Harinder Hernandez DO Active PREDNISONE 10 MG TAB 1 tablet daily for COPD PREDNISONE 53092351540 Active Ciera Pimentel Active PROAIR HFA 108 (90 BASE) MCG/ACT AERS 2 puffs four times a day as needed 2012 ALBUTEROL SULFATE 28217549481 Active Harinder Hernandez DO Active FLOVENT HFA 110 MCG/ACT AERO 2 puffs inhaled b.i.d. FLUTICASONE PROPIONATE HFA 00025027668 Active Kortney Mccain Active ACIPHEX 20 MG TBEC 1 tab po daily RABEPRAZOLE SODIUM 64421346661 Active Kaylah Newberry Active CLONAZEPAM 0.5 MG TABS 1 tab po daily CLONAZEPAM 0.5 MG TABS 923077 CLONAZEPAM Inactive PREDNISONE 20 MG TAB 3 tabs today, then 1 tab twice daily for 3 day, then one daily for three days PREDNISONE 20 MG TAB 295405 PREDNISONE Inactive PREDNISONE 20 MG TAB 2 tabs daily for 4 days, 1 tab daily for 4 days, 1/2 tab daily for 4 days PREDNISONE 20 MG TAB 632745 PREDNISONE Inactive PREDNISONE 10 MG TABS 1 tab po daily PREDNISONE 10 MG TABS 537951 PREDNISONE Inactive TYLENOL EXTRA STRENGTH 500 MG TABS as needed TYLENOL EXTRA STRENGTH 500 MG TABS 305814 ACETAMINOPHEN Inactive MUPIROCIN 2 % OINT apply to affected area BID x 14 days MUPIROCIN 2 % OINT 197038 MUPIROCIN Inactive MONTELUKAST SODIUM 10 MG TABS 1 tab po in the evening MONTELUKAST SODIUM 10 MG TABS 20010818 MONTELUKAST SODIUM Inactive BENZONATATE 100 MG CAPS 1 cap po TID PRN BENZONATATE 100 MG CAPS 189782 BENZONATATE Inactive NEURONTIN 300 MG CAP 1 cap by mouth three times daily for restless leg 06/22 NEURONTIN 300 MG CAP 611646 GABAPENTIN Inactive LEVAQUIN 500 MG TAB 1 tablet by mouth daily LEVAQUIN 500 MG TAB 218744 LEVOFLOXACIN Inactive PREDNISONE 20 MG TAB 1 TID x 2 days, then 1 BID x 3 days, then 1 Daily x 3 days, then stop PREDNISONE 20 MG TAB 173481 PREDNISONE Inactive POTASSIUM CHLORIDE ER 10 MEQ CR-TABS take 1 tab po daily POTASSIUM CHLORIDE ER 10 MEQ CR-TABS POTASSIUM CHLORIDE Inactive PREDNISONE 20 MG TAB 1 tab twice daily for 3 day, then one daily for three days PREDNISONE 20 MG TAB 571120 PREDNISONE Inactive TESSALON PERLES 100 MG CAP 1 to 2 tablets by mouth 3 times daily as needed for cough TESSALON PERLES 100 MG CAP 542672 BENZONATATE Inactive POTASSIUM CHLORIDE CR 10 MEQ CPCR 1 capsule by mouth daily 02/14 POTASSIUM CHLORIDE CR 10 MEQ CPCR POTASSIUM CHLORIDE Inactive NITROSTAT 0.4 MG SUBL 1 tab under tongueas needed for chest pain ( may take 3 total, 5 min apart, then call 911) NITROSTAT 0.4 MG SUBL 277731 NITROGLYCERIN Inactive LOVASTATIN 40 MG TABS 1 pill by mouth nightly for cholesterol LOVASTATIN 40 MG TABS 327365 LOVASTATIN Inactive CEFDINIR 300 MG ORAL CAPS take 1 cap po bid x 10 days CEFDINIR 300 MG ORAL CAPS 074775 CEFDINIR Inactive ACEBUTOLOL HCL 200 MG CAPS 1 cap in the morning and 2 caps in the evening ACEBUTOLOL HCL 200 MG CAPS 879461 ACEBUTOLOL HCL Inactive VENTOLIN HFA 108 (90 BASE) MCG/ACT AERS 2 -4 puffs four times a day PRN 2013 VENTOLIN HFA 108 (90 BASE) MCG/ACT AERS ALBUTEROL SULFATE Inactive LEVAQUIN 500 MG ORAL TABS Take 1 tab po daily x 8 days LEVAQUIN 500 MG ORAL TABS 903791 LEVOFLOXACIN Inactive PREDNISONE 20 MG TAB 2 tabs daily for 4 days, 1 tab daily for 4 days, 1/2 tab daily for 4 days PREDNISONE 20 MG TAB 160750 PREDNISONE Inactive LOVASTATIN 40 MG ORAL TABS Take 1 tab po every hs LOVASTATIN 40 MG ORAL TABS 867690 LOVASTATIN Inactive DILAUDID 2 MG ORAL TABS Take 1/2 tab po every 4 hours as needed for pain 2014 DILAUDID 2 MG ORAL TABS 244038 HYDROMORPHONE HCL Inactive AMITRIPTYLINE HCL 25 MG ORAL TABS 1 q hs prn AMITRIPTYLINE HCL 25 MG ORAL TABS 845305 AMITRIPTYLINE HCL Inactive MECLIZINE HCL 25 MG TAB 1 tablet three times daily for 3 days, then 1/2 tab three times daily for 3 days. MECLIZINE HCL 25 MG TAB 490397 MECLIZINE HCL Inactive AMLODIPINE BESYLATE 5 MG ORAL TABS Take 1 tab po daily AMLODIPINE BESYLATE 5 MG ORAL TABS 085424 AMLODIPINE BESYLATE Inactive TOPIRAMATE 25 MG TABS 1 tab po BID TOPIRAMATE 25 MG TABS 656617 TOPIRAMATE Inactive PREDNISONE 20 MG TAB 1 tablet twice daily for 2 days, then 1 tablet once daily for 2 days PREDNISONE 20 MG TAB 457277 PREDNISONE Inactive PREDNISONE 20 MG TAB 1 tab twice daily for 3 day, then one daily for three days PREDNISONE 20 MG TAB 816264 PREDNISONE Inactive NIFEDIPINE ER 30 MG ORAL [id number] 1 daily NIFEDIPINE ER 30 MG ORAL [id number] NIFEDIPINE Inactive AMLODIPINE BESYLATE 5 MG TABS 1 tablet by mouth daily AMLODIPINE BESYLATE 5 MG TABS 245345 AMLODIPINE BESYLATE Inactive AZITHROMYCIN 250 MG TABS 2 po qd x 1 day, then 1 po qd x 4 days AZITHROMYCIN 250 MG TABS 2214002 AZITHROMYCIN Inactive AZITHROMYCIN 250 MG TABS 2 po qd x 1 day, then 1 po qd x 4 days AZITHROMYCIN 250 MG TABS 0625951 AZITHROMYCIN Inactive PREDNISONE 20 MG TAB 2 po qd x 5 days PREDNISONE 20 MG TAB 024979 PREDNISONE Inactive Vital Signs Date Name Value [...] Panel - Chemistry sodium, serum 137 mmol/L 780-901 2280/01/03 potassium, serum 3.4 mmol/L 3.5-5.2 chloride, serum [...] Magnesium - Chemistry cholesterol, serum 180 mg/dL 057-977 6769/08/08 triglyceride, serum, fasting 92 mg/dL 30-200 HDL cholesterol, serum 66 mg/dL 32-96 LDL cholesterol, serum 96 mg/dL 0-130 sodium, serum 142 mmol/L 613-947 9504/08/08 carbon dioxide, venous blood 27.4 mmol/L 21.0-32.0 [...] 10.0-20.0 Encounters Code Encounter Date Provider Facility CPT-78426 Level 3 Est. Patient 11:30:05 CDT Harinder Cr [facility] CPT-43081 Level 4 Est. Patient 10:19:23 CDT Harinder Cr [facility] CPT-30656 Level 3 Est. Patient 09:58:58 CDT Harinder [facility] CPT-43907 Level 3 Est. Patient 12:37:21 CDT Harinder Shaye David [facility] CPT-93362 Level 3 Est. Patient 18:37:17 CDT Harinder Hernandez [facility] CPT-94438 Level 4 Est. Patient 11:15:54 CDT Nettie Newberry APRN [facility] CPT-37342 Level 3 Est. Patient 16:42:24 CDT Harinder Shaye David [facility] CPT-96959 Level 3 Est. Patient 15:03:36 CDT Harinder Cr David [facility] CPT-08758 Level 3 Est. Patient 15:03:20 CDT Harinder Cr David [facility] CPT-45047 Level 3 Est. Patient 12:14:34 CDT Harinder Hernandez [facility] CPT-01849 Level 3 Est. Patient 13:47:15 CDT Harinder Cr David [facility] CPT-81443 Level 3 Est. Patient 14:08:24 CDT Harinder Hernandez [facility] CPT-14027 Level 3 Est. Patient 10:07:15 CDT Harinder Cr David [facility] CPT-15193 Level 3 Est. Patient 10:06:59 CDT Harinder Cr David [facility] CPT-77244 Level 3 Est. Patient 15:53:29 CDT Jae Morgan MD [facility] CPT-40231 Level 3 Est. Patient 17:19:04 CDT Harinder Hernandez [facility] CPT-61274 Level 3 Est. Patient 11:13:01 CDT Harinder Hernandez [facility] CPT-60543 Level 3 Est. Patient 09:03:58 CDT Harinder Hernandez [facility] CPT-23325 Level 3 Est. Patient 14:46:45 BUDGET OFFICER Harinder Cr [facility] CPT-96252 Level 3 Est. Patient 09:35:49 BUDGET OFFICER Harinder Hernandez [facility] CPT-68627 Level 3 Est. Patient 09:29:37 BUDGET OFFICER Harinder Hernandez [facility] CPT-81161 Level 3 Est. Patient 15:51:07 CDT Harinder Hernandez [facility] CPT-64119 Level 3 Est. Patient 18:13:13 CDT Harinder Hernandez [facility] CPT-00858 Level 3 Est. Patient 10:44:19 CDT Harinder Hernandez [facility] CPT-26296 Level 4 Est. Patient 10:07:19 BUDGET OFFICER Harinder Hernandez [facility] CPT-29816 Level 3 Est. Patient 15:59:32 BUDGET OFFICER Harinder Cr [facility] Procedures Code Procedure Name Date Entry Date Standard Description CPT-99468 Hip, complete, 2-3 views - XRAY USE ONLY 10:28:40 CDT CPT-83927 BMP - LAB USE ONLY 16:45:09 BUDGET OFFICER CPT-86764 Port a cath flush 12:00:13 BUDGET OFFICER CPT-TCMM Transitional Care Mgmt-Moderate 11:20:16 BUDGET OFFICER CPT-88522 First Vx - Ix admin for Medicare patients 17:35:15 CDT CPT-61690 Fluzone Preservative Free Intramuscular Suspension 17:35 :15 CDT CPT-47135 Microalbumin - LAB USE ONLY 11:52:05 CDT CPT-TCMM Transitional Care Mgmt-Moderate 11:33:57 CDT CPT-97171 No Charge Offi Visit 14:11:29 CDT CPT-55945 Magnesium - LAB USE ONLY 10:45:44 CDT CPT-43947 Lipid - LAB USE ONLY 10:45:44 CDT CPT-81159 CBC - LAB USE ONLY 10:45:44 CDT CPT-99294 Venipuncture Draw Fee 10:45:43 CDT CPT-80062 Venipuncture Draw Fee 18:21:27 CDT CPT-JTINJ Asp/Joint Injection 18:38:04 CDT CPT-13353 Immunization Each Additional Inj 17:38:04 CDT CPT-79258 Immunization Single Admin 17:38:04 CDT CPT-65134 Prevnar 13 17:38:04 CDT CPT-30085 Fluzone Quadrivalent preservative free (>=3yrs.) 17:38: 04 CDT CPT-96068 No Charge Offi Visit 11:14:03 CDT CPT-98994 Chest 2V Frontal and Lat 14:00:18 CDT CPT-OV Office Visit 16:10:28 CDT CPT-JTINJ Asp/Joint Injection 09:03:57 CDT CPT-Cryo Cryotherapy 09:35:49 BUDGET OFFICER CPT-JTINJ Asp/Joint Injection 09:34:45 BUDGET OFFICER CPT-J2930 Solu Medrol 125 mg (Methyl Prednisolone Sodium Succinate) 20:37:27 CDT CPT-98898 Abx/Therapy Injection 20:37:27 CDT CPT-23625 Port a cath flush 08:15:51 CDT CPT-04673 Port a cath flush 09:54:16 CDT [facility]-41721 Port a cath flush 09:38:02 CDT [facility]-07533 Port a cath flush 11:00:27 BUDGET OFFICER
--- OUTSIDE RECORDS SUMMARY | 2017-12-29 00:23 | XMS REPORT | Clinical Summary ---
Author Author Admin, QIE Organization [facility] [employer] Address Unknown Phone Unavailable Allergies, Adverse Reactions, Alerts Allergy Name Reaction Description Start Date Severity Status Provider VANCOMYCIN Critical Active Harinder Hernandez DO LEVAQUIN stomach upset, diarrhea, and itching Critical Active Harinder Hernandez DO AITHROMYCIN itch Moderate Active Harinder Hernandez DO NEOSPORIN Critical Active Harinder Hernandez DO TRAMADOL HCL Critical Active aHrinder Hernandez DO REQUIP Critical Active Harinder Hernandez DO PENICILLIN V POTASSIUM Critical Active Harinder Hernandez DO MORPHINE Critical Active Harinder Hernandez DO LATEX Critical Active Harinder Hernandez DO IBUPROFEN Critical Active Harinder Hernandez DO HYDROCODONE-ACETAMINOPHEN Critical Active Harinder Hernandez DO [facility] CORTISONE LONG-LASTING Critical Active Harinder Hernandez DO AVELOX Critical Active Harinder Hernandez DO DOXYCYCLINE Critical Active Harnider Hernandez DO CODEINE Critical Active Harinder Hernandez [...] ( Pneumococcus) ICD-V03.[address] David Greater trochanteric bursitis, left ICD-726.5 Inactive Harinder Hernandez DO Medication List Medication Instructions Start Date Stop Date Generic Name NDC Status Provider Patient Instruction ALBUTEROL SULFATE 0.083 % NEBU SOLN 1 vial neb q 4hrs PRN Wheezing Dx: J44.1 ALBUTEROL SULFATE 71288569851 Active Kaylah Newberry Active AMLODIPINE BESYLATE 5 MG TABS 1 tablet by mouth daily AMLODIPINE BESYLATE 50275302444 Active Harinder Heranndez DO Active NIFEDIPINE ER 30 MG ORAL [id number] 1 daily NIFEDIPINE 79125596384 No Longer Active Harinder Hernandez DO Active POTASSIUM CHLORIDE 20 MEQ ORAL PACK Take 1 tablet by mouth daily POTASSIUM CHLORIDE 14255912956 Active Ciera Pimentel Active FLOVENT HFA 110 MCG/ACT AERO 2 puffs inhaled b.i.d. FLUTICASONE PROPIONATE HFA 33972540914 Active Harinder Hernandez DO Active POTASSIUM CHLORIDE CR 10 MEQ CPCR 1 capsule by mouth daily POTASSIUM CHLORIDE 03044562969 Active Harinder Hernandez DO Active EPIPEN 2-BRUNA 0.3 MG/0.3ML INJ SOAJ 1 INJ NEEDED EPINEPHRINE 52046745882 Active Harinder Hernandez DO Active PREDNISONE 20 MG TAB 1 tab twice daily for 3 day, then one daily for three days PREDNISONE 53479293099 No Longer Active Harinder Hernandez DO Active PREDNISONE 20 MG TAB 1 tablet twice daily for 2 days, then 1 tablet once daily for 2 days PREDNISONE 46411833751 No Longer Active Harinder Hernandez DO Active ASMANEX 120 METERED DOSES 220 MCG/INH INH AEPB 2 puffs orally twice daily MOMETASONE FUROATE 67870389064 Active Jeri Sosa RPT,RMA Active TOPIRAMATE 25 MG TABS 1 tab po BID TOPIRAMATE 47576286074 No Longer Active Nettie Newberry APRN Active AMLODIPINE BESYLATE 5 MG ORAL TABS Take 1 tab po daily AMLODIPINE BESYLATE 39584885762 No Longer Active Nettie Rohith MAHENDRA Active MECLIZINE HCL 25 MG TAB 1 tablet three times daily for 3 days, then 1/2 tab three times daily for 3 days. MECLIZINE HCL 18009415327 No Longer Active Nettie Newberry APRN Active AMITRIPTYLINE HCL 25 MG ORAL TABS 1 q hs prn AMITRIPTYLINE HCL 46378509244 No Longer Active Nettie Rohith MAHENDRA Active DILAUDID 2 MG ORAL TABS Take 1/2 tab po every 4 hours as needed for pain 2014 HYDROMORPHONE HCL 90819207272 No Longer Active Nettie Newberry APRN Active CLOPIDOGREL BISULFATE 75 MG ORAL TABS 1 tab by mouth once daily CLOPIDOGREL BISULFATE 49841889490 Active Tawnya Pardo MA Active ATORVASTATIN CALCIUM 10 MG ORAL TABS 1 at bedtime ATORVASTATIN CALCIUM 71063855972 Active Tawnya Pardo MA Active LOVASTATIN 40 MG ORAL TABS Take 1 tab po every hs LOVASTATIN 37396195260 No Longer Active Harinder Hernandez DO Active PREDNISONE 20 MG TAB 2 tabs daily for 4 days, 1 tab daily for 4 days, 1/2 tab daily for 4 days PREDNISONE 44446958159 No Longer Active Harinder Hernandez DO Active LEVAQUIN 500 MG ORAL TABS Take 1 tab po daily x 8 days LEVOFLOXACIN 70405733779 No Longer Active Harinder Hernandez DO Active VENTOLIN HFA 108 (90 BASE) MCG/ACT AERS 2 -4 puffs four times a day PRN 2013 ALBUTEROL SULFATE 69613543820 No Longer Active Jeri Sosa RPT,RMA Active ACEBUTOLOL HCL 200 MG CAPS 1 cap in the morning and 2 caps in the evening ACEBUTOLOL HCL 91284688748 No Longer Active Harinder Hernandez DO Active CEFDINIR 300 MG ORAL CAPS take 1 cap po bid x 10 days CEFDINIR 68362885330 No Longer Active Harinder Hernandez DO Active LOVASTATIN 40 MG TABS 1 pill by mouth nightly for cholesterol LOVASTATIN 39394516748 No Longer Active Nettie Newberry APRN Active NITROSTAT 0.4 MG SUBL 1 tab under tongueas needed for chest pain ( may take 3 total, 5 min apart, then call 911) NITROGLYCERIN 08773612528 No Longer Active Nettie Newberry APRN Active POTASSIUM CHLORIDE CR 10 MEQ CPCR 1 capsule by mouth daily 02/14 POTASSIUM CHLORIDE 56776883740 No Longer Active Nettie Newberry APRN Active TESSALON PERLES 100 MG CAP 1 to 2 tablets by mouth 3 times daily as needed for cough BENZONATATE 94844161759 No Longer Active Nettie Newberry APRN Active THEOPHYLLINE ER 200 MG ORAL [id number] Take 1 tab every 12 hours THEOPHYLLINE 75451231278 Active Tawnya Pardo MA Active PREDNISONE 20 MG TAB 2 po qd x 5 days PREDNISONE 37002182047 No Longer Active Jae Morgan MD Active AZITHROMYCIN 250 MG TABS 2 po qd x 1 day, then 1 po qd x 4 days AZITHROMYCIN 92683760504 No Longer Active Jae Morgan MD Active PREDNISONE 20 MG TAB 1 tab twice daily for 3 day, then one daily for three days PREDNISONE 19429370187 No Longer Active Jae Morgan MD Active SINGULAIR 10 MG TABS 1 pill by mouth every evening for breathing. MONTELUKAST SODIUM 81068484402 Active Tawnya Pardo MA Active TYLENOL 325 MG TAB 3 by mouth q4h as needed ACETAMINOPHEN 76603927504 Active Harinder Hernandez DO Active POTASSIUM CHLORIDE ER 10 MEQ CR-TABS take 1 tab po daily POTASSIUM CHLORIDE 42249070175 No Longer Active Harinder Hernandez DO Active PREDNISONE 20 MG TAB 1 TID x 2 days, then 1 BID x 3 days, then 1 Daily x 3 days, then stop PREDNISONE 36604211612 No Longer Active Jillina Frazell APARTMENT MAINTENANCE MANAGER Active LEVAQUIN 500 MG TAB 1 tablet by mouth daily LEVOFLOXACIN 47247444359 No Longer Active Jillina Frazell APARTMENT MAINTENANCE MANAGER Active NEURONTIN 300 MG CAP 1 cap by mouth three times daily for restless leg 06/22 GABAPENTIN 16924012320 No Longer Active Harinder Hernandez DO Active BENZONATATE 100 MG CAPS 1 cap po TID PRN BENZONATATE 84093972811 No Longer Active Harinder Hernandez DO Active MONTELUKAST SODIUM 10 MG TABS 1 tab po in the evening MONTELUKAST SODIUM 16396096503 No Longer Active Harinder Hernandez DO Active MUPIROCIN 2 % OINT apply to affected area BID x 14 days MUPIROCIN 63725347947 No Longer Active Harinder Hernandez DO Active TYLENOL EXTRA STRENGTH 500 MG TABS as needed ACETAMINOPHEN 98102926157 No Longer Active Harinder Hernandez DO Active PREDNISONE 10 MG TABS 1 tab po daily PREDNISONE 49866394856 No Longer Active Harinder Hernandez DO Active PREDNISONE 20 MG TAB 2 tabs daily for 4 days, 1 tab daily for 4 days, 1/2 tab daily for 4 days PREDNISONE 98364718898 No Longer Active Harinder Hernandez DO Active AZITHROMYCIN 250 MG TABS 2 po qd x 1 day, then 1 po qd x 4 days AZITHROMYCIN 47889236977 No Longer Active Harinder Hernandez DO Active PREDNISONE 20 MG TAB 3 tabs today, then 1 tab twice daily for 3 day, then one daily for three days PREDNISONE 41699132653 No Longer Active Harinder Hernandez DO Active NIFEDIAC CC 30 MG [id number] 1 tablet daily for raynaud's syndrome NIFEDIPINE 82727666902 No Longer Active Tawnya Pardo MA Active AMBIEN 10 MG TAB 1/2 tab by mouth at bedtime as needed for sleep ZOLPIDEM TARTRATE 06245079937 Active Harinder Hernandez DO Active CLONAZEPAM 1 MG TABS 1 tablet at bedtime for insomnia and restless legs 09/14 CLONAZEPAM 65352530904 Active Harinder Hernandez DO Active CLONAZEPAM 0.5 MG TABS 1 tab po daily CLONAZEPAM 70141888794 No Longer Active Harinder Hernandez DO Active PREDNISONE 10 MG TAB 1 tablet daily for COPD PREDNISONE 07399540645 Active Tawnya Pardo MA Active PROAIR HFA 108 (90 BASE) MCG/ACT AERS 2 puffs four times a day as needed 2012 ALBUTEROL SULFATE 21770025432 Active Tawnya Pardo MA Active FLOVENT HFA 110 MCG/ACT AERO 2 puffs inhaled b.i.d. FLUTICASONE PROPIONATE HFA 34262105908 Active Tawnya Pardo MA Active ACIPHEX 20 MG TBEC 1 tab po daily RABEPRAZOLE SODIUM 80588516935 Active Kaylah Newberry Active CLONAZEPAM 0.5 MG TABS 1 tab po daily CLONAZEPAM 0.5 MG TABS 173714 CLONAZEPAM Inactive PREDNISONE 20 MG TAB 3 tabs today, then 1 tab twice daily for 3 day, then one daily for three days PREDNISONE 20 MG TAB 505650 PREDNISONE Inactive PREDNISONE 20 MG TAB 2 tabs daily for 4 days, 1 tab daily for 4 days, 1/2 tab daily for 4 days PREDNISONE 20 MG TAB 460147 PREDNISONE Inactive PREDNISONE 10 MG TABS 1 tab po daily PREDNISONE 10 MG TABS 426366 PREDNISONE Inactive TYLENOL EXTRA STRENGTH 500 MG TABS as needed TYLENOL EXTRA STRENGTH 500 MG TABS 037557 ACETAMINOPHEN Inactive MUPIROCIN 2 % OINT apply to affected area BID x 14 days MUPIROCIN 2 % OINT 353493 MUPIROCIN Inactive MONTELUKAST SODIUM 10 MG TABS 1 tab po in the evening MONTELUKAST SODIUM 10 MG TABS 20010818 MONTELUKAST SODIUM Inactive BENZONATATE 100 MG CAPS 1 cap po TID PRN BENZONATATE 100 MG CAPS 19730321 BENZONATATE Inactive NEURONTIN 300 MG CAP 1 cap by mouth three times daily for restless leg 06/22 NEURONTIN 300 MG CAP 414373 GABAPENTIN Inactive LEVAQUIN 500 MG TAB 1 tablet by mouth daily LEVAQUIN 500 MG TAB 085990 LEVOFLOXACIN Inactive PREDNISONE 20 MG TAB 1 TID x 2 days, then 1 BID x 3 days, then 1 Daily x 3 days, then stop PREDNISONE 20 MG TAB 477232 PREDNISONE Inactive POTASSIUM CHLORIDE ER 10 MEQ CR-TABS take 1 tab po daily POTASSIUM CHLORIDE ER 10 MEQ CR-TABS POTASSIUM CHLORIDE Inactive PREDNISONE 20 MG TAB 1 tab twice daily for 3 day, then one daily for three days PREDNISONE 20 MG TAB 452184 PREDNISONE Inactive TESSALON PERLES 100 MG CAP 1 to 2 tablets by mouth 3 times daily as needed for cough TESSALON PERLES 100 MG CAP 228932 BENZONATATE Inactive POTASSIUM CHLORIDE CR 10 MEQ CPCR 1 capsule by mouth daily 02/14 POTASSIUM CHLORIDE CR 10 MEQ CPCR POTASSIUM CHLORIDE Inactive NITROSTAT 0.4 MG SUBL 1 tab under tongueas needed for chest pain ( may take 3 total, 5 min apart, then call 911) NITROSTAT 0.4 MG SUBL 294817 NITROGLYCERIN Inactive LOVASTATIN 40 MG TABS 1 pill by mouth nightly for cholesterol LOVASTATIN 40 MG TABS 128523 LOVASTATIN Inactive CEFDINIR 300 MG ORAL CAPS take 1 cap po bid x 10 days CEFDINIR 300 MG ORAL CAPS 20021018 CEFDINIR Inactive ACEBUTOLOL HCL 200 MG CAPS 1 cap in the morning and 2 caps in the evening ACEBUTOLOL HCL 200 MG CAPS 034101 ACEBUTOLOL HCL Inactive VENTOLIN HFA 108 (90 BASE) MCG/ACT AERS 2 -4 puffs four times a day PRN 2013 VENTOLIN HFA 108 (90 BASE) MCG/ACT AERS ALBUTEROL SULFATE Inactive LEVAQUIN 500 MG ORAL TABS Take 1 tab po daily x 8 days LEVAQUIN 500 MG ORAL TABS 804847 LEVOFLOXACIN Inactive PREDNISONE 20 MG TAB 2 tabs daily for 4 days, 1 tab daily for 4 days, 1/2 tab daily for 4 days PREDNISONE 20 MG TAB 078816 PREDNISONE Inactive LOVASTATIN 40 MG ORAL TABS Take 1 tab po every hs LOVASTATIN 40 MG ORAL TABS 401509 LOVASTATIN Inactive DILAUDID 2 MG ORAL TABS Take 1/2 tab po every 4 hours as needed for pain 2014 DILAUDID 2 MG ORAL TABS 463023 HYDROMORPHONE HCL Inactive AMITRIPTYLINE HCL 25 MG ORAL TABS 1 q hs prn AMITRIPTYLINE HCL 25 MG ORAL TABS 217385 AMITRIPTYLINE HCL Inactive MECLIZINE HCL 25 MG TAB 1 tablet three times daily for 3 days, then 1/2 tab three times daily for 3 days. MECLIZINE HCL 25 MG TAB 696549 MECLIZINE HCL Inactive AMLODIPINE BESYLATE 5 MG ORAL TABS Take 1 tab po daily AMLODIPINE BESYLATE 5 MG ORAL TABS 306440 AMLODIPINE BESYLATE Inactive TOPIRAMATE 25 MG TABS 1 tab po BID TOPIRAMATE 25 MG TABS 367341 TOPIRAMATE Inactive PREDNISONE 20 MG TAB 1 tablet twice daily for 2 days, then 1 tablet once daily for 2 days PREDNISONE 20 MG TAB 308775 PREDNISONE Inactive PREDNISONE 20 MG TAB 1 tab twice daily for 3 day, then one daily for three days PREDNISONE 20 MG TAB 973504 PREDNISONE Inactive NIFEDIPINE ER 30 MG ORAL [id number] 1 daily NIFEDIPINE ER 30 MG ORAL [id number] NIFEDIPINE Inactive AZITHROMYCIN 250 MG TABS 2 po qd x 1 day, then 1 po qd x 4 days AZITHROMYCIN 250 MG TABS 6497757 AZITHROMYCIN Inactive AZITHROMYCIN 250 MG TABS 2 po qd x 1 day, then 1 po qd x 4 days AZITHROMYCIN 250 MG TABS 7838248 AZITHROMYCIN Inactive PREDNISONE 20 MG TAB 2 po qd x 5 days PREDNISONE 20 MG TAB 708413 PREDNISONE Inactive Vital Signs Date Name Value [...] Panel - Chemistry sodium, serum 137 mmol/L 235-167 7991/01/03 potassium, serum 3.4 mmol/L 3.5-5.2 chloride, serum [...] Magnesium - Chemistry cholesterol, serum 180 mg/dL 174-659 7272/08/08 triglyceride, serum, fasting 92 mg/dL 30-200 HDL cholesterol, serum 66 mg/dL 32-96 LDL cholesterol, serum 96 mg/dL 0-130 sodium, serum 142 mmol/L 678-177 1560/08/08 carbon dioxide, venous blood 27.4 mmol/L 21.0-32.0 [...] 10.0-20.0 Encounters Code Encounter Date Provider Facility CPT-06691 Level 3 Est. Patient 09:58:58 CDT Harinder Hernandez [facility] CPT-57518 Level 3 Est. Patient 12:37:21 CDT Harinder Hernandez [facility] CPT-63842 Level 3 Est. Patient 18:37:17 CDT Harinder Hernandez [facility] CPT-82223 Level 4 Est. Patient 11:15:[address] [facility] [place] CPT-67478 Level 3 Est. Patient 16:42:24 CDT Harinder Cr [facility] CPT-98215 Level 3 Est. Patient 15:03:36 CDT Harinder Hernandez [facility] CPT-24205 Level 3 Est. Patient 15:03:20 CDT Harinder Hernandez [facility] CPT-92942 Level 3 Est. Patient 12:14:34 CDT Harinder Hernandez [facility] CPT-46733 Level 3 Est. Patient 13:47:15 CDT Harinder Hernandez [facility] CPT-95374 Level 3 Est. Patient 14:08:24 CDT Harinder Hernandez [facility] CPT-56041 Level 3 Est. Patient 10:07:15 CDT Harinder Hernandez [facility] CPT-65660 Level 3 Est. Patient 10:06:59 CDT Harinder Hernandez [facility] CPT-10242 Level 3 Est. Patient 15:53:29 CDT Jae Morgan MD [facility] CPT-03739 Level 3 Est. Patient 17:19:04 CDT Harinder Hernandez [facility] CPT-05031 Level 3 Est. Patient 11:13:01 CDT Harinder Hernandez [facility] CPT-27015 Level 3 Est. Patient 09:03:58 CDT Harinder Hernandez [facility] CPT-61177 Level 3 Est. Patient 14:46:45 [employer] Harinder Hernandez [facility] CPT-78854 Level 3 Est. Patient 09:35:49 [employer]SE [employer]PERATOR [employer] Harinder Hernandez [facility] CPT-52485 Level 3 Est. Patient 09:29:37 RE[employer]SE [employer]PERATOR [employer] Harinder Hernandez [facility] CPT-98231 Level 3 Est. Patient 15:51:07 CDT Harinder Hernandez [facility] CPT-11536 Level 3 Est. Patient 18:13:13 CDT Harinder Shaye Hernandez [facility] CPT-57801 Level 3 Est. Patient 10:44:19 CDT Harinder Hernandez [facility] CPT-16613 Level 4 Est. Patient 10:07:19 RE[employer]SE [employer] OPERATOR [employer] Harinder Hernandez [facility] CPT-27838 Level 3 Est. Patient 15:59:32 RE[employer]SE [employer]PER[employer] Harinder Hernandez [facility] Procedures Code Procedure Name Date Entry Date Standard Description CPT-06660 BMP - LAB USE ONLY 16:45:09 RE[employer]SE [employer] CPT-92421 Port a cath flush 12:00:13 [employer]SE [employer] CPT-TCMM Transitional Care Mgmt-Moderate 11:20:16 [employer] CPT-31310 First Vx - Ix admin for Medicare patients 17:35:15 CDT CPT-94501 Fluzone Preservative Free Intramuscular Suspension 17:35 :15 CDT CPT-41101 Microalbumin - LAB USE ONLY 11:52:05 CDT CPT-TCMM Transitional Care Mgmt-Moderate 11:33:57 CDT CPT-36249 No Charge Offi Visit 14:11:29 CDT CPT-50601 Magnesium - LAB USE ONLY 10:45:44 CDT CPT-77764 Lipid - LAB USE ONLY 10:45:44 CDT CPT-07432 CBC - LAB USE ONLY 10:45:44 CDT CPT-82762 Venipuncture Draw Fee 10:45:43 CDT CPT-61184 Venipuncture Draw Fee 18:21:27 CDT CPT-JTINJ Asp/Joint Injection 18:38:04 CDT CPT-04686 Immunization Each Additional Inj 17:38:04 CDT CPT-53871 Immunization Single Admin 17:38:04 CDT CPT-83020 Prevnar 13 17:38:04 CDT CPT-84898 Fluzone Quadrivalent preservative free (>=3yrs.) 17:38: 04 CDT CPT-18612 No Charge Offi Visit 11:14:03 CDT CPT-90535 Chest 2V Frontal and Lat 14:00:18 CDT CPT-OV Office Visit 16:10:28 CDT CPT-JTINJ Asp/Joint Injection 09:03:57 CDT CPT-Cryo Cryotherapy 09:35:49 [employer] CPT-JTINJ Asp/Joint Injection 09:34:45 [employer] CPT-J2930 Solu Medrol 125 mg (Methyl Prednisolone Sodium Succinate) 20:37:27 CDT CPT-54155 Abx/Therapy Injection 20:37:27 CDT CPT-73784 Port a cath flush 08:15:51 CDT CPT-87233 Port a cath flush 09:54:16 CDT CPT-09975 Port a cath flush 09:38:02 CDT CPT-99955 Port a cath flush 11:00:27 [employer]
--- OUTSIDE RECORDS SUMMARY | 2017-12-29 00:24 | XMS REPORT | Clinical Summary ---
Author Author Admin, QIE Organization [facility] Address Unknown Phone Unavailable Allergies, Adverse Reactions, [...] LRT Symptomatic states associated with artificial menopause Encounter for fitting and adjustment of vascular catheter ICD-V58.81 Inactive Harinder Hernandez DO Back pain, lumbar ICD-724.2 Inactive Harinder Hernandez DO Insomnia ICD-780.52 Inactive Harinder Hernandez DO Breast mass, right ICD-611.72 Inactive Harinder Shaye Hernandez DO Sacroiliitis, right ICD-720.2 Inactive Harinder W David DO Biceps tendinitis, left ICD-726.12 Inactive Harinder W David DO Raynaud's syndrome ICD-443.0 Inactive Kortney Mccain Benign positional vertigo ICD-386.11 Inactive Harinder W David DO Colon cancer screening ICD-V76.51 Inactive Harinder W David DO Screening for malignant neoplasm, colon ICD-V76.51 Inactive Harinder Hernandez DO Pneumonia ICD-486 Inactive Harinder Shaye David DO Bacteremia ICD-790.7 Inactive Harinder W [...] Right leg pain ICD-729.5 Inactive Kortney Mccain Diarrhea ICD-787.91 Inactive Jae Morgan MD Nausea and vomiting ICD-787.01 Inactive Jae Morgan MD Viral upper respiratory tract infection ICD-465.9 Inactive Kortney Mccain U R I ICD-465.9 Inactive Meenu Alejo LPN Gastroenteritis, viral, acute ICD-008.8 Inactive Meenu Alejo LPN Medication List Medication Instructions Start Date Stop Date Generic Name NDC Status Provider Patient Instruction SUPER CALCIUM 600 + D3 TABLET CALCIUM CARBONATE-VITAMIN D TABS 56699105235 Active Meenu Alejo LPN Active SPIRONOLACTONE 25 MG ORAL TABLET 1 tablet by mouth daily SPIRONOLACTONE 54586023230 No Longer Active Jeri Nieto Active PREDNISONE 20 MG ORAL TABLET 2 tablets by mouth today, then 1 tablet by mouth days 2-3 PREDNISONE 71488554558 No Longer Active Jeri Nieto Active NITROSTAT 0.4 MG SUBLINGUAL TABLET SUBLINGUAL 1 tab SL q5min PRN chest pain NITROGLYCERIN 92942799546 Active Meenu Alejo LPN Active THEOPHYLLINE ER 300 MG ORAL TABLET EXTENDED RELEASE 12 HOUR 1 po BID THEOPHYLLINE 09636757018 Active Meenu Alejo LPN Active POTASSIUM CHLORIDE ER 20 MEQ ORAL TABLET EXTENDED RELEASE 1 po q day POTASSIUM CHLORIDE 75023403946 Active Kortney Mccain Active POTASSIUM CHLORIDE 20 MEQ ORAL PACKET 1 tab po q day POTASSIUM CHLORIDE 16279540701 No Longer Active Kortney Mccain Active POTASSIUM CHLORIDE ER 10 MEQ ORAL CAPSULE EXTENDED RELEASE 1 capsule BID 2016 POTASSIUM CHLORIDE 47819239028 No Longer Active Kortney Mccain Active LASIX 20 MG ORAL TABLET 1 tablet by mouth every morning FUROSEMIDE 12653507699 No Longer Active Kortney Mccain Active FLUOXETINE HCL 10 MG ORAL CAPSULE 1 po qd for depression/anxiety FLUOXETINE HCL 92146306863 Active Meenu Alejo LPN Active VOLTAREN 1 % TRANSDERMAL GEL apply q 6-8 hour to left arm as needed for pain DICLOFENAC SODIUM 58936527895 Active Kortney Mccain Active ALBUTEROL SULFATE (2.5 MG/3ML) 0.083% INHALATION NEBULIZATION SOLUTION 1 vial neb q 4hrs for severe asthma. imperative to have this agent ALBUTEROL SULFATE 00941093947 Active Ciera Pimentel Active NIFEDIAC CC 30 MG ORAL TABLET EXTENDED RELEASE 24 HOUR 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 NIFEDIPINE 99606456184 Active Kortney Mccain Active AMLODIPINE BESYLATE 5 MG ORAL TABLET 1 tablet by mouth daily 2016 AMLODIPINE BESYLATE 30346422198 No Longer Active Harinder Hernandez DO Active TOPAMAX 25 MG ORAL TABLET 1 tab po BID TOPIRAMATE 99080535174 Active Kortney Mccain Active FLUTICASONE PROPIONATE 50 MCG/ACT NASAL SUSPENSION 2 sprays per nostril daily PRN Allergies FLUTICASONE PROPIONATE 96144393438 Active Meenu Alejo LPN Active NIFEDIPINE ER 30 MG ORAL TABLET EXTENDED RELEASE 24 HOUR 1 daily NIFEDIPINE 70055620071 No Longer Active Harinder Hernandez DO Active FLOVENT HFA 110 MCG/ACT INHALATION AEROSOL 2 puffs inhaled b.i.d. FLUTICASONE PROPIONATE HFA 73417675609 Active Harinder Hernandez DO Active EPIPEN 2-BRUNA 0.3 MG/0.3ML INJECTION SOLUTION AUTO-INJECTOR 1 INJ NEEDED EPINEPHRINE 74074944559 Active Meenu Alejo LPN Active PREDNISONE 20 MG ORAL TABLET 1 tab twice daily for 3 day, then one daily for three days PREDNISONE 98753918701 No Longer Active Harinder Hernandez DO Active PREDNISONE 20 MG ORAL TABLET 1 tablet twice daily for 2 days, then 1 tablet once daily for 2 days PREDNISONE 13326286253 No Longer Active Harinder Hernandez DO Active ASMANEX 120 METERED DOSES 220 MCG/INH INHALATION AEROSOL POWDER BREATH ACTIVATED 2 puffs orally twice daily MOMETASONE FUROATE 10221483319 Active Jeri Sosa LPN Active TOPIRAMATE 25 MG ORAL TABLET 1 tab po BID TOPIRAMATE 47646609980 No Longer Active Nettie Newberry APRN Active AMLODIPINE BESYLATE 5 MG ORAL TABLET Take 1 tab po daily AMLODIPINE BESYLATE 48686604162 No Longer Active Nettie Newberry APRN Active MECLIZINE HCL 25 MG ORAL TABLET 1 tablet three times daily for 3 days, then 1/ 2 tab three times daily for 3 days. MECLIZINE HCL 02577028565 No Longer Active Nettie Newberry APRN Active AMITRIPTYLINE HCL 25 MG ORAL TABLET 1 q hs prn AMITRIPTYLINE HCL 10101399729 No Longer Active Nettie Newberry APRN Active DILAUDID 2 MG ORAL TABLET Take 1/2 tab po every 4 hours as needed for pain HYDROMORPHONE HCL 24093919265 No Longer Active Nettie Newberry APRN Active CLOPIDOGREL BISULFATE 75 MG ORAL TABLET 1 tab by mouth once daily CLOPIDOGREL BISULFATE 94699539402 Active Meenu Alejo LPN Active ATORVASTATIN CALCIUM 10 MG ORAL TABLET 1 at bedtime ATORVASTATIN CALCIUM 07388534427 Active Kortney Mccain Active LOVASTATIN 40 MG ORAL TABLET Take 1 tab po every hs LOVASTATIN 53469392203 No Longer Active Harinder Hernandez DO Active PREDNISONE 20 MG ORAL TABLET 2 tabs daily for 4 days, 1 tab daily for 4 days, 1/2 tab daily for 4 days PREDNISONE 78221842262 No Longer Active Harinder Hernandez DO Active LEVAQUIN 500 MG ORAL TABLET Take 1 tab po daily x 8 days LEVOFLOXACIN 83906335886 No Longer Active Harinder Hernandez DO Active VENTOLIN HFA 108 (90 Base) MCG/ACT INHALATION AEROSOL SOLUTION 2 -4 puffs four times a day PRN ALBUTEROL SULFATE 00168214474 No Longer Active Jeri Sosa LPN Active ACEBUTOLOL HCL 200 MG ORAL CAPSULE 1 cap in the morning and 2 caps in the evening ACEBUTOLOL HCL 65692929860 No Longer Active Harinder Hernandez DO Active CEFDINIR 300 MG ORAL CAPSULE take 1 cap po bid x 10 days CEFDINIR 56782482511 No Longer Active Harinder Hernandez DO Active LOVASTATIN 40 MG ORAL TABLET 1 pill by mouth nightly for cholesterol LOVASTATIN 33431276769 No Longer Active Nettie Newberry APRN Active NITROSTAT 0.4 MG SUBLINGUAL TABLET SUBLINGUAL 1 tab under tongueas needed for chest pain ( may take 3 total, 5 min apart, then call 911) NITROGLYCERIN 46989056688 No Longer Active Nettie Newberry APRN Active POTASSIUM CHLORIDE ER 10 MEQ ORAL CAPSULE EXTENDED RELEASE 1 capsule by mouth daily POTASSIUM CHLORIDE 48679179333 No Longer Active Nettie Newberry APRN Active TESSALON PERLES 100 MG ORAL CAPSULE 1 to 2 tablets by mouth 3 times daily as needed for cough BENZONATATE 86435798920 No Longer Active Nettie Newberry APRN Active PREDNISONE 20 MG ORAL TABLET 2 po qd x 5 days PREDNISONE 78459414648 No Longer Active Jae Morgan MD Active AZITHROMYCIN 250 MG ORAL TABLET 2 po qd x 1 day, then 1 po qd x 4 days 12/30 AZITHROMYCIN 71367639238 No Longer Active Jae Morgan MD Active PREDNISONE 20 MG ORAL TABLET 1 tab twice daily for 3 day, then one daily for three days PREDNISONE 46466313741 No Longer Active Jae Morgan MD Active SINGULAIR 10 MG ORAL TABLET 1 pill by mouth every evening for breathing. 2014 MONTELUKAST SODIUM 99202100982 Active Meenu Alejo LPN Active TYLENOL 325 MG ORAL TABLET 3 by mouth q4h as needed ACETAMINOPHEN 98612320349 Active Harinder Hernandez DO Active POTASSIUM CHLORIDE ER 10 MEQ ORAL TABLET EXTENDED RELEASE take 1 tab po daily POTASSIUM CHLORIDE 62530920041 No Longer Active Harinder Hernandez DO Active PREDNISONE 20 MG ORAL TABLET 1 TID x 2 days, then 1 BID x 3 days, then 1 Daily x 3 days, then stop PREDNISONE 33661056568 No Longer Active Jillina Frazell UI ARCHITECT Active LEVAQUIN 500 MG ORAL TABLET 1 tablet by mouth daily LEVOFLOXACIN 31557592757 No Longer Active Jillina Frazell UI ARCHITECT Active NEURONTIN 300 MG ORAL CAPSULE 1 cap by mouth three times daily for restless leg GABAPENTIN 29750606837 No Longer Active Harinder Hernandez DO Active BENZONATATE 100 MG ORAL CAPSULE 1 cap po TID PRN BENZONATATE 08913626835 No Longer Active Harinder Hernandez DO Active MONTELUKAST SODIUM 10 MG ORAL TABLET 1 tab po in the evening 2014 MONTELUKAST SODIUM 35236210267 No Longer Active Harinder Hernandez DO Active MUPIROCIN 2 % EXTERNAL OINTMENT apply to affected area BID x 14 days MUPIROCIN 56395208313 No Longer Active Harinder Hernandez DO Active TYLENOL EXTRA STRENGTH 500 MG ORAL TABLET as needed ACETAMINOPHEN 84990490411 No Longer Active Harinder Hernandez DO Active PREDNISONE 10 MG ORAL TABLET 1 tab po daily PREDNISONE 33008746515 No Longer Active Harinder Hernandez DO Active PREDNISONE 20 MG ORAL TABLET 2 tabs daily for 4 days, 1 tab daily for 4 days, 1/2 tab daily for 4 days PREDNISONE 49425550839 No Longer Active Harinder Hernandez DO Active AZITHROMYCIN 250 MG ORAL TABLET 2 po qd x 1 day, then 1 po qd x 4 days 04/06 AZITHROMYCIN 37751128023 No Longer Active Harinder Hernandez DO Active PREDNISONE 20 MG ORAL TABLET 3 tabs today, then 1 tab twice daily for 3 day, then one daily for three days PREDNISONE 79226068100 No Longer Active Harinder Hernandez DO Active NIFEDIAC CC 30 MG ORAL TABLET EXTENDED RELEASE 24 HOUR 1 tablet daily for raynaud's syndrome NIFEDIPINE 81409204698 No Longer Active Tawnya Pardo MA Active AMBIEN 10 MG ORAL TABLET 1/2 tab by mouth at bedtime as needed for sleep 2013 ZOLPIDEM TARTRATE 66945560401 Active Meenu Alejo LPN Active CLONAZEPAM 1 MG ORAL TABLET 1 tablet at bedtime for insomnia and restless legs CLONAZEPAM 14643987821 Active Meenu Alejo LPN Active CLONAZEPAM 0.5 MG ORAL TABLET 1 tab po daily CLONAZEPAM 45173651362 No Longer Active Harinder Hernandez DO Active PREDNISONE 10 MG ORAL TABLET 1 tablet daily for COPD PREDNISONE 24767660773 Active Kortney Mccain Active PROAIR HFA 108 (90 Base) MCG/ACT INHALATION AEROSOL SOLUTION 2 puffs four times a day as needed ALBUTEROL SULFATE 53374457402 Active Harinder Hernandez DO Active FLOVENT HFA 110 MCG/ACT INHALATION AEROSOL 2 puffs inhaled b.i.d. FLUTICASONE PROPIONATE HFA 94657633114 Active Kortney Mccain Active ACIPHEX 20 MG ORAL TABLET DELAYED RELEASE 1 tab po daily RABEPRAZOLE SODIUM 67197343458 Active Meenu Alejo LPN Active CLONAZEPAM 0.5 MG ORAL TABLET 1 tab po daily CLONAZEPAM 0.5 MG ORAL TABLET 226540 CLONAZEPAM Inactive PREDNISONE 20 MG ORAL TABLET 3 tabs today, then 1 tab twice daily for 3 day, then one daily for three days PREDNISONE 20 MG ORAL TABLET 610954 PREDNISONE Inactive PREDNISONE 20 MG ORAL TABLET 2 tabs daily for 4 days, 1 tab daily for 4 days, 1/2 tab daily for 4 days PREDNISONE 20 MG ORAL TABLET 593419 PREDNISONE Inactive PREDNISONE 10 MG ORAL TABLET 1 tab po daily PREDNISONE 10 MG ORAL TABLET 136515 PREDNISONE Inactive TYLENOL EXTRA STRENGTH 500 MG ORAL TABLET as needed TYLENOL EXTRA STRENGTH 500 MG ORAL TABLET 936900 ACETAMINOPHEN Inactive MUPIROCIN 2 % EXTERNAL OINTMENT apply to affected area BID x 14 days MUPIROCIN 2 % EXTERNAL OINTMENT 705850 MUPIROCIN Inactive MONTELUKAST SODIUM 10 MG ORAL TABLET 1 tab po in the evening 2014 MONTELUKAST SODIUM 10 MG ORAL TABLET 106615 MONTELUKAST SODIUM Inactive BENZONATATE 100 MG ORAL CAPSULE 1 cap po TID PRN BENZONATATE 100 MG ORAL CAPSULE 774388 BENZONATATE Inactive NEURONTIN 300 MG ORAL CAPSULE 1 cap by mouth three times daily for restless leg NEURONTIN 300 MG ORAL CAPSULE 495052 GABAPENTIN Inactive LEVAQUIN 500 MG ORAL TABLET 1 tablet by mouth daily LEVAQUIN 500 MG ORAL TABLET 312782 LEVOFLOXACIN Inactive PREDNISONE 20 MG ORAL TABLET 1 TID x 2 days, then 1 BID x 3 days, then 1 Daily x 3 days, then stop PREDNISONE 20 MG ORAL TABLET 873382 PREDNISONE Inactive POTASSIUM CHLORIDE ER 10 MEQ ORAL TABLET EXTENDED RELEASE take 1 tab po daily POTASSIUM CHLORIDE ER 10 MEQ ORAL TABLET EXTENDED RELEASE POTASSIUM CHLORIDE Inactive PREDNISONE 20 MG ORAL TABLET 1 tab twice daily for 3 day, then one daily for three days PREDNISONE 20 MG ORAL TABLET 633882 PREDNISONE Inactive TESSALON PERLES 100 MG ORAL CAPSULE 1 to 2 tablets by mouth 3 times daily as needed for cough TESSALON PERLES 100 MG ORAL CAPSULE 919489 BENZONATATE Inactive POTASSIUM CHLORIDE ER 10 MEQ ORAL CAPSULE EXTENDED RELEASE 1 capsule by mouth daily POTASSIUM CHLORIDE ER 10 MEQ ORAL CAPSULE EXTENDED RELEASE POTASSIUM CHLORIDE Inactive NITROSTAT 0.4 MG SUBLINGUAL TABLET SUBLINGUAL 1 tab under tongueas needed for chest pain ( may take 3 total, 5 min apart, then call 911) NITROSTAT 0.4 MG SUBLINGUAL TABLET SUBLINGUAL 346119 NITROGLYCERIN Inactive LOVASTATIN 40 MG ORAL TABLET 1 pill by mouth nightly for cholesterol LOVASTATIN 40 MG ORAL TABLET 069487 LOVASTATIN Inactive CEFDINIR 300 MG ORAL CAPSULE take 1 cap po bid x 10 days CEFDINIR 300 MG ORAL CAPSULE 261209 CEFDINIR Inactive ACEBUTOLOL HCL 200 MG ORAL CAPSULE 1 cap in the morning and 2 caps in the evening ACEBUTOLOL HCL 200 MG ORAL CAPSULE 233682 ACEBUTOLOL HCL Inactive VENTOLIN HFA 108 (90 Base) MCG/ACT INHALATION AEROSOL SOLUTION 2 -4 puffs four times a day PRN VENTOLIN HFA 108 (90 Base) MCG/ ACT INHALATION AEROSOL SOLUTION ALBUTEROL SULFATE Inactive LEVAQUIN 500 MG ORAL TABLET Take 1 tab po daily x 8 days LEVAQUIN 500 MG ORAL TABLET 567896 LEVOFLOXACIN Inactive PREDNISONE 20 MG ORAL TABLET 2 tabs daily for 4 days, 1 tab daily for 4 days, 1/2 tab daily for 4 days PREDNISONE 20 MG ORAL TABLET 948006 PREDNISONE Inactive LOVASTATIN 40 MG ORAL TABLET Take 1 tab po every hs LOVASTATIN 40 MG ORAL TABLET 652084 LOVASTATIN Inactive DILAUDID 2 MG ORAL TABLET Take 1/2 tab po every 4 hours as needed for pain DILAUDID 2 MG ORAL TABLET 325042 HYDROMORPHONE HCL Inactive AMITRIPTYLINE HCL 25 MG ORAL TABLET 1 q hs prn AMITRIPTYLINE HCL 25 MG ORAL TABLET 356573 AMITRIPTYLINE HCL Inactive MECLIZINE HCL 25 MG ORAL TABLET 1 tablet three times daily for 3 days, then 1/ 2 tab three times daily for 3 days. MECLIZINE HCL 25 MG ORAL TABLET 851398 MECLIZINE HCL Inactive AMLODIPINE BESYLATE 5 MG ORAL TABLET Take 1 tab po daily AMLODIPINE BESYLATE 5 MG ORAL TABLET 869761 AMLODIPINE BESYLATE Inactive TOPIRAMATE 25 MG ORAL TABLET 1 tab po BID TOPIRAMATE 25 MG ORAL TABLET 571322 TOPIRAMATE Inactive PREDNISONE 20 MG ORAL TABLET 1 tablet twice daily for 2 days, then 1 tablet once daily for 2 days PREDNISONE 20 MG ORAL TABLET 206816 PREDNISONE Inactive PREDNISONE 20 MG ORAL TABLET 1 tab twice daily for 3 day, then one daily for three days PREDNISONE 20 MG ORAL TABLET 440084 PREDNISONE Inactive NIFEDIPINE ER 30 MG ORAL TABLET EXTENDED RELEASE 24 HOUR 1 daily NIFEDIPINE ER 30 MG ORAL TABLET EXTENDED RELEASE 24 HOUR NIFEDIPINE Inactive AMLODIPINE BESYLATE 5 MG ORAL TABLET 1 tablet by mouth daily 2016 AMLODIPINE BESYLATE 5 MG ORAL TABLET 024053 AMLODIPINE BESYLATE Inactive LASIX 20 MG ORAL TABLET 1 tablet by mouth every morning LASIX 20 MG ORAL TABLET 252367 FUROSEMIDE Inactive POTASSIUM CHLORIDE ER 10 MEQ ORAL CAPSULE EXTENDED RELEASE 1 capsule BID 2016 POTASSIUM CHLORIDE ER 10 MEQ ORAL CAPSULE EXTENDED RELEASE POTASSIUM CHLORIDE Inactive POTASSIUM CHLORIDE 20 MEQ ORAL PACKET 1 tab po q day POTASSIUM CHLORIDE 20 MEQ ORAL PACKET 0297398 POTASSIUM CHLORIDE Inactive PREDNISONE 20 MG ORAL TABLET 2 tablets by mouth today, then 1 tablet by mouth days 2-3 PREDNISONE 20 MG ORAL TABLET 259486 PREDNISONE Inactive SPIRONOLACTONE 25 MG ORAL TABLET 1 tablet by mouth daily SPIRONOLACTONE 25 MG ORAL TABLET 554530 SPIRONOLACTONE Inactive AZITHROMYCIN 250 MG ORAL TABLET 2 po qd x 1 day, then 1 po qd x 4 days 04/06 AZITHROMYCIN 250 MG ORAL TABLET 887525 AZITHROMYCIN Inactive AZITHROMYCIN 250 MG ORAL TABLET 2 po qd x 1 day, then 1 po qd x 4 days 12/30 AZITHROMYCIN 250 MG ORAL TABLET 898128 AZITHROMYCIN Inactive PREDNISONE 20 MG ORAL TABLET 2 po qd x 5 days PREDNISONE 20 MG ORAL TABLET 086451 PREDNISONE Inactive Vital Signs Date Name Value [...] temperature weight E&M 136 [lb_av] Weight Measured Diagnostic Results Date Name Value Unit Range Description Lab Report: Basic Metabolic Panel - Chemistry calcium, serum 9.2 mg/dL 8.5-10.1 urea nitrogen, blood 13 mg/dL 7-18 creatinine, serum 0.84 mg/dL 0.60-1.30 blood glucose 93 mg/dL 65-110 carbon dioxide, venous blood 26.9 mmol/L 21.0-32.0 chloride, serum 103 mmol/L 98-107 potassium, serum 3.2 mmol/L 3.5-5.2 sodium, serum 140 mmol/L 937-904 5058/08/21 sodium, serum 140 mmol/L 818-620 0563/08/21 urea nitrogen, blood 11 mg/dL 7-18 creatinine, serum 0.95 mg/dL 0.60-1.30 potassium, serum 3.8 mmol/L 3.5-5.2 chloride, serum 105 mmol/L 98-107 carbon dioxide, venous blood 26.9 mmol/L 21.0-32.0 blood glucose 85 mg/dL 65-110 calcium, serum 8.8 mg/dL 8.5-10.1 Lab Report: CBC - Hematology leukocyte count, [...] leukocyte count, blood 6.2 10^3/MM^3 10*3/mm3 4.6-10.2 mean corpuscular hemoglobin concentration, RBC 33.5 G/DL % 31.8- 35.4 red blood cell distribution width 12.7 % 11.6-14.8 platelet count 204 10^3/MM^3 10*3/mm3 939-778 0127/08/07 erythrocyte (RBC) count 4.04 10^6/MM^3 10*6/mm3 3.80-5.80 hemoglobin, blood 12.9 g/dL 12.0-16.0 hematocrit, blood 38.6 % 37.0-47.0 mean corpuscular volume, RBC 96 fL 80-97 mean corpuscular hemoglobin, RBC 32.0 pg 27.0-31.2 Lab Report: CBC, UADIP W/MICRO, AUTO - [...] ... - Chemistry sodium, serum 141 mmol/L 160-591 8020/08/07 creatinine, serum 0.97 mg/dL 0.60-1.30 alanine aminotransferase (SGPT), serum 24 U/L 12-78 aspartate aminotransferase (SGOT), serum 24 U/L 15-37 calcium, serum 9.2 mg/dL 8.5-10.1 bilirubin, serum, total 0.90 mg/dL 0.00-1.00 TSH 0.80 m[iU]/mL 0.36-3.74 carbon dioxide, venous blood 34.0 mmol/L 21.0-32.0 potassium, serum 2.7 mmol/L 3.5-5.2 chloride, serum 99 mmol/L 98-107 blood glucose 88 mg/dL 65-110 urea nitrogen, blood 11 mg/dL 7-18 Lab Report: HEPATIC PANEL, Lipid Panel - Chemistry aspartate aminotransferase (SGOT), serum 19 U/L 15-37 LDL cholesterol, serum 106 mg/dL 0-130 alanine aminotransferase (SGPT), serum 23 U/L 12-78 bilirubin, serum, total 1.40 mg/dL 0.00-1.00 cholesterol, serum 192 mg/dL 129-195 5879/10/19 triglyceride, serum, fasting 71 mg/dL 30-200 HDL cholesterol, serum 72 mg/dL 32-60 Lab Report: Rapid Strep - Lab Microbial identification kit, rapid strep method Negative Negative Lab Report: THEOPHYLLINE - Toxicology theophylline level, serum 3.1 ug/mL 10.0-20.0 Encounters Code Encounter Date Provider Facility CPT-18867 Level 4 Est. Patient 10:17:51 [facility] CPT-66130 Level 3 Est. Patient 12:36:15 HAMMER FITTER Harinder Hernandez [facility] CPT-66242 Level 3 Est. Patient 15:14:45 [facility]AMMER [employer] CPT-68836 Level 4 Est. Patient 14:45:25 CDT [facility] CPT-04395 Level 4 Est. Patient 09:15:13 CDT [facility] CPT-29443 Level 3 Est. Patient 11:51:58 CDT [facility] CPT-16694 Level 3 Est. Patient 11:30:05 CDT [facility] CPT-72241 Level 4 Est. Patient 10:19:23 CDT [facility] CPT-05372 Level 3 Est. Patient 09:58:58 CDT [facility] CPT-82934 Level 3 Est. Patient 12:37:21 CDT [facility] CPT-27204 Level 3 Est. Patient 18:37:17 CDT [facility] CPT-59242 Level 4 Est. Patient 11:15:54 CDT Nettie Newberry [facility] [place] CPT-00317 Level 3 Est. Patient 16:42:24 CDT [facility] CPT-47858 Level 3 Est. Patient 15:03:36 CDT [facility] CPT-46685 Level 3 Est. Patient 15:03:20 CDT Har[address] W David [facility] CPT-38134 Level 3 Est. Patient 12:14:34 CDT Harinder Hernandez [facility] CPT-91356 Level 3 Est. Patient 13:47:15 CDT Harindre Hernandez [facility] CPT-38718 Level 3 Est. Patient 14:08:24 CDT Harinder Hernandez [facility] CPT-45587 Level 3 Est. Patient 10:07:15 CDT Harinder Hernandez [facility] CPT-78214 Level 3 Est. Patient 10:06:59 CDT Harinder Hernandez [facility] CPT-29858 Level 3 Est. Patient 15:53:29 CDT Jae Morgan [facility] CPT-16081 Level 3 Est. Patient 17:19:04 CDT Harinder Hernandez [facility] CPT-36954 Level 3 Est. Patient 11:13:01 CDT Harinder Hernandez [facility] CPT-58370 Level 3 Est. Patient 09:03:[address] [facility] CPT-63179 Level 3 Est. Patient 14:46:45 HAMMER FITTER Harinder Hernandez [facility] CPT-76685 Level 3 Est. Patient 09:35:49 H[employer] [facility] CPT-92693 Level 3 Est. Patient 09:29:37 HAMMER [employer] [facility] CPT-90635 Level 3 Est. Patient 15:51:07 CDT Harinder Heranndez [facility] CPT-02655 Level 3 Est. Patient 18:13:13 CDT Harinder Hernandez [facility] CPT-46077 Level 3 Est. Patient 10:44:19 CDT Harinder Hernandez [facility] CPT-32500 Level 4 Est. Patient 10:07:19 HAMMER FIT[employer] [address] [facility] CPT-18655 Level 3 Est. Patient 15:59:32 HAMMER FITTER [address] [facility] Procedures Code Procedure Name Date Entry Date Standard Description CPT-12979 Bone Density - XRAY USE ONLY 14:43:42 CDT CPT-G0009 Administration of Pneumococcal Vaccine 10:33:25 HAMMER FITTER CPT-37001 Pneumovax 23 Injection Injectable 25 MCG/0.5ML 10:33:25 HAMMER FITTER CPT-18051 First Vx - Ix admin for Medicare patients 10:33:25 HAMMER FITTER CPT-63474 Fluzone Quadrivalent Intramuscular Suspension 0.5 ML 10: 33:25 HAMMER FITTER CPT-Cryo Cryotherapy 10:17:51 HAMMER FITTER CPT-G0438 Initial Annual Wellness Exam 10:08:59 HAMMER FITTER CPT-91183 Abd compl w upright - XRAY USE ONLY 14:48:09 CDT 02/18 CPT-51770 Port a cath flush 13:46:05 CDT CPT-82360 Hip, complete, 2-3 views - XRAY USE ONLY 10:28:40 CDT CPT-10460 BMP - LAB USE ONLY 16:45:09 HAMMER FITTER CPT-70096 Port a cath flush 12:00:13 HAMMER FITTER CPT-TCMM Transitional Care Mgmt-Moderate 11:20:16 HAMMER FITTER CPT-74207 First Vx - Ix admin for Medicare patients 17:35:15 CDT CPT-92961 Fluzone Preservative Free Intramuscular Suspension 17:35 :15 CDT CPT-03102 Microalbumin - LAB USE ONLY 11:52:05 CDT CPT-TCMM Transitional Care Mgmt-Moderate 11:33:57 CDT CPT-15449 No Charge Offi Visit 14:11:29 CDT CPT-68089 Magnesium - LAB USE ONLY 10:45:44 CDT CPT-57227 Lipid - LAB USE ONLY 10:45:44 CDT CPT-65367 CBC - LAB USE ONLY 10:45:44 CDT CPT-76994 Venipuncture Draw Fee 10:45:43 CDT CPT-07425 Venipuncture Draw Fee 18:21:27 CDT CPT-JTINJ Asp/Joint Injection 18:38:04 CDT CPT-35577 Immunization Each Additional Inj 17:38:04 CDT CPT-17532 Immunization Single Admin 17:38:04 CDT CPT-68836 Prevnar 13 17:38:04 CDT CPT-99797 Fluzone Quadrivalent preservative free (>=3yrs.) 17:38: 04 CDT CPT-23706 No Charge Offi Visit 11:14:03 CDT CPT-36571 Chest 2V Frontal and Lat 14:00:18 CDT CPT-OV Office Visit 16:10:28 CDT CPT-JTINJ Asp/Joint Injection 09:03:57 CDT CPT-Cryo Cryotherapy 09:35:49 HAMMER FITTER CPT-JTINJ Asp/Joint Injection 09:34:45 HAMMER FITTER CPT-J2930 Solu Medrol 125 mg (Methyl Prednisolone Sodium Succinate) 20:37:27 CDT CPT-98292 Abx/Therapy Injection 20:37:27 CDT CPT-24559 Port a cath flush 08:15:51 CDT CPT-95210 Port a cath flush 09:54:16 CDT CPT-79559 Port a cath flush 09:38:02 CDT CPT-86668 Port a cath flush 11:00:27 HAMMER FITTER
--- OUTSIDE RECORDS SUMMARY | 2017-12-29 00:25 | XMS REPORT | Clinical Summary ---
Author Author Admin, QIE Organization [facility] Address Unknown Phone Unavailable Allergies, Adverse Reactions, [...] cerebrovascular accident with residual deficit 438.9 Active Harindre Hernandez DO Unspecified late effects of cerebrovascular disease Venous insufficiency 459.81 Active Nettie King MAHENDRA Venous (peripheral) insufficiency, unspecified Greater trochanteric bursitis, left 726.5 Active Harinder Hernandez DO Enthesopathy of hip region Diarrhea, acute 787.91 Active Harinder Cr David DO Diarrhea URI 465.9 Active Harinder rC David DO Acute upper respiratory infections of [...] Generic Name NDC Status Provider Patient Instruction FLUTICASONE PROPIONATE 50 MCG/ACT SUSP 2 sprays per nostril daily PRN Allergies FLUTICASONE PROPIONATE 46537855553 Active Kortney Mccain Active ALBUTEROL SULFATE 0.083 % NEBU SOLN 1 vial neb q 4hrs PRN Wheezing Dx: J44.1 ALBUTEROL SULFATE 14096337281 Active Kortney Mccain Active AMLODIPINE BESYLATE 5 MG TABS 1 tablet by mouth daily AMLODIPINE BESYLATE 90822575236 Active Harinder Hernandez DO Active NIFEDIPINE ER 30 MG ORAL [id number] 1 daily NIFEDIPINE 08039166115 No Longer Active Harinder Hernandez DO Active POTASSIUM CHLORIDE 20 MEQ ORAL PACK Take 1 tablet by mouth daily POTASSIUM CHLORIDE 93853830787 Active Ciera Pimentel Active FLOVENT HFA 110 MCG/ACT AERO 2 puffs inhaled b.i.d. FLUTICASONE PROPIONATE HFA 97979597791 Active Harinder Hernandez DO Active POTASSIUM CHLORIDE CR 10 MEQ CPCR 1 capsule by mouth daily POTASSIUM CHLORIDE 09521176420 Active Harinder Hernandez DO Active EPIPEN 2-BRUNA 0.3 MG/0.3ML INJ SOAJ 1 INJ NEEDED EPINEPHRINE 05711748346 Active Harinder Hernandez DO Active PREDNISONE 20 MG TAB 1 tab twice daily for 3 day, then one daily for three days PREDNISONE 99766761006 No Longer Active Harinder Hernandez DO Active PREDNISONE 20 MG TAB 1 tablet twice daily for 2 days, then 1 tablet once daily for 2 days PREDNISONE 75691680031 No Longer Active Harinder Hernandez DO Active ASMANEX 120 METERED DOSES 220 MCG/INH INH AEPB 2 puffs orally twice daily MOMETASONE FUROATE 63005976204 Active Jeri Sosa RPT,RMA Active TOPIRAMATE 25 MG TABS 1 tab po BID TOPIRAMATE 55850698272 No Longer Active Nettie Newberry APRN Active AMLODIPINE BESYLATE 5 MG ORAL TABS Take 1 tab po daily AMLODIPINE BESYLATE 99890699083 No Longer Active Nettie Newberry APRN Active MECLIZINE HCL 25 MG TAB 1 tablet three times daily for 3 days, then 1/2 tab three times daily for 3 days. MECLIZINE HCL 98502244819 No Longer Active Nettie Newberry APRN Active AMITRIPTYLINE HCL 25 MG ORAL TABS 1 q hs prn AMITRIPTYLINE HCL 10517898017 No Longer Active Nettie Newberry APRN Active DILAUDID 2 MG ORAL TABS Take 1/2 tab po every 4 hours as needed for pain 2014 HYDROMORPHONE HCL 15847975875 No Longer Active Nettie Newberry MAHENDRA Active CLOPIDOGREL BISULFATE 75 MG ORAL TABS 1 tab by mouth once daily CLOPIDOGREL BISULFATE 23487009007 Active Harinder Hernandez DO Active ATORVASTATIN CALCIUM 10 MG ORAL TABS 1 at bedtime ATORVASTATIN CALCIUM 52569422464 Active Tawnya Pardo MA Active LOVASTATIN 40 MG ORAL TABS Take 1 tab po every hs LOVASTATIN 79901733101 No Longer Active Harinder Hernandez DO Active PREDNISONE 20 MG TAB 2 tabs daily for 4 days, 1 tab daily for 4 days, 1/2 tab daily for 4 days PREDNISONE 70308048857 No Longer Active Harinder Hernandez DO Active LEVAQUIN 500 MG ORAL TABS Take 1 tab po daily x 8 days LEVOFLOXACIN 09321129170 No Longer Active Harinder Hernandez DO Active VENTOLIN HFA 108 (90 BASE) MCG/ACT AERS 2 -4 puffs four times a day PRN 2013 ALBUTEROL SULFATE 44526310003 No Longer Active Jeri Sosa RPT,RMA Active ACEBUTOLOL HCL 200 MG CAPS 1 cap in the morning and 2 caps in the evening ACEBUTOLOL HCL 45511018085 No Longer Active Harinder Hernandez DO Active CEFDINIR 300 MG ORAL CAPS take 1 cap po bid x 10 days CEFDINIR 55432302660 No Longer Active Harinder Hernandez DO Active LOVASTATIN 40 MG TABS 1 pill by mouth nightly for cholesterol LOVASTATIN 69360113406 No Longer Active Nettie Newberry APRN Active NITROSTAT 0.4 MG SUBL 1 tab under tongueas needed for chest pain ( may take 3 total, 5 min apart, then call 911) NITROGLYCERIN 72596265964 No Longer Active Nettie Newberry APRN Active POTASSIUM CHLORIDE CR 10 MEQ CPCR 1 capsule by mouth daily 02/14 POTASSIUM CHLORIDE 76994128543 No Longer Active Nettie Newberry APRN Active TESSALON PERLES 100 MG CAP 1 to 2 tablets by mouth 3 times daily as needed for cough BENZONATATE 90430508496 No Longer Active Nettie Newberry APRN Active THEOPHYLLINE ER 200 MG ORAL [id number] Take 1 tab every 12 hours THEOPHYLLINE 37311132751 Active Tawnya Pardo MA Active PREDNISONE 20 MG TAB 2 po qd x 5 days PREDNISONE 49804352004 No Longer Active Jae Morgan MD Active AZITHROMYCIN 250 MG TABS 2 po qd x 1 day, then 1 po qd x 4 days AZITHROMYCIN 01690527071 No Longer Active Jae Morgan MD Active PREDNISONE 20 MG TAB 1 tab twice daily for 3 day, then one daily for three days PREDNISONE 35639701609 No Longer Active Jae Morgan MD Active SINGULAIR 10 MG TABS 1 pill by mouth every evening for breathing. MONTELUKAST SODIUM 27348261791 Active Tawnya Pardo MA Active TYLENOL 325 MG TAB 3 by mouth q4h as needed ACETAMINOPHEN 04191999440 Active Harinder Hernandez DO Active POTASSIUM CHLORIDE ER 10 MEQ CR-TABS take 1 tab po daily POTASSIUM CHLORIDE 02912770220 No Longer Active Harinder Hernandez DO Active PREDNISONE 20 MG TAB 1 TID x 2 days, then 1 BID x 3 days, then 1 Daily x 3 days, then stop PREDNISONE 31883988298 No Longer Active Jillina Frazellor TELEPHONER Active LEVAQUIN 500 MG TAB 1 tablet by mouth daily LEVOFLOXACIN 63532420108 No Longer Active Jillina Frazell TELEPHONER Active NEURONTIN 300 MG CAP 1 cap by mouth three times daily for restless leg 06/22 GABAPENTIN 39172537035 No Longer Active Harinder Hernandez DO Active BENZONATATE 100 MG CAPS 1 cap po TID PRN BENZONATATE 79439975980 No Longer Active Harinder Hernandez DO Active MONTELUKAST SODIUM 10 MG TABS 1 tab po in the evening MONTELUKAST SODIUM 52836031261 No Longer Active Harinder Hernandez DO Active MUPIROCIN 2 % OINT apply to affected area BID x 14 days MUPIROCIN 11772351534 No Longer Active Harinder Hernandez DO Active TYLENOL EXTRA STRENGTH 500 MG TABS as needed ACETAMINOPHEN 24513408417 No Longer Active Harinder Hernandez DO Active PREDNISONE 10 MG TABS 1 tab po daily PREDNISONE 54782875668 No Longer Active Harinder Hernandez DO Active PREDNISONE 20 MG TAB 2 tabs daily for 4 days, 1 tab daily for 4 days, 1/2 tab daily for 4 days PREDNISONE 89588866079 No Longer Active Harinder Hernandez DO Active AZITHROMYCIN 250 MG TABS 2 po qd x 1 day, then 1 po qd x 4 days AZITHROMYCIN 30122095401 No Longer Active Harinder Hernandez DO Active PREDNISONE 20 MG TAB 3 tabs today, then 1 tab twice daily for 3 day, then one daily for three days PREDNISONE 60438168362 No Longer Active Harinder Hernandez DO Active NIFEDIAC CC 30 MG [id number] 1 tablet daily for raynaud's syndrome NIFEDIPINE 95451057131 No Longer Active Tawnya Pardo MA Active AMBIEN 10 MG TAB 1/2 tab by mouth at bedtime as needed for sleep ZOLPIDEM TARTRATE 57287116815 Active Kortney Mccain Active CLONAZEPAM 1 MG TABS 1 tablet at bedtime for insomnia and restless legs 09/14 CLONAZEPAM 76972614080 Active Harinder Hernandez DO Active CLONAZEPAM 0.5 MG TABS 1 tab po daily CLONAZEPAM 96682245890 No Longer Active Harinder Hernandez DO Active PREDNISONE 10 MG TAB 1 tablet daily for COPD PREDNISONE 90663568675 Active Tawnya Pardo MA Active PROAIR HFA 108 (90 BASE) MCG/ACT AERS 2 puffs four times a day as needed 2012 ALBUTEROL SULFATE 49174403466 Active Harinder Hernandez DO Active FLOVENT HFA 110 MCG/ACT AERO 2 puffs inhaled b.i.d. FLUTICASONE PROPIONATE HFA 99117383800 Active Kortney Mccain Active ACIPHEX 20 MG TBEC 1 tab po daily RABEPRAZOLE SODIUM 25015897772 Active Kaylah Newberry Active CLONAZEPAM 0.5 MG TABS 1 tab po daily CLONAZEPAM 0.5 MG TABS 842180 CLONAZEPAM Inactive PREDNISONE 20 MG TAB 3 tabs today, then 1 tab twice daily for 3 day, then one daily for three days PREDNISONE 20 MG TAB 021816 PREDNISONE Inactive PREDNISONE 20 MG TAB 2 tabs daily for 4 days, 1 tab daily for 4 days, 1/2 tab daily for 4 days PREDNISONE 20 MG TAB 174208 PREDNISONE Inactive PREDNISONE 10 MG TABS 1 tab po daily PREDNISONE 10 MG TABS 175922 PREDNISONE Inactive TYLENOL EXTRA STRENGTH 500 MG TABS as needed TYLENOL EXTRA STRENGTH 500 MG TABS 622583 ACETAMINOPHEN Inactive MUPIROCIN 2 % OINT apply to affected area BID x 14 days MUPIROCIN 2 % OINT 685306 MUPIROCIN Inactive MONTELUKAST SODIUM 10 MG TABS 1 tab po in the evening MONTELUKAST SODIUM 10 MG TABS 20010818 MONTELUKAST SODIUM Inactive BENZONATATE 100 MG CAPS 1 cap po TID PRN BENZONATATE 100 MG CAPS 164872 BENZONATATE Inactive NEURONTIN 300 MG CAP 1 cap by mouth three times daily for restless leg 06/22 NEURONTIN 300 MG CAP 222259 GABAPENTIN Inactive LEVAQUIN 500 MG TAB 1 tablet by mouth daily LEVAQUIN 500 MG TAB 287375 LEVOFLOXACIN Inactive PREDNISONE 20 MG TAB 1 TID x 2 days, then 1 BID x 3 days, then 1 Daily x 3 days, then stop PREDNISONE 20 MG TAB 687585 PREDNISONE Inactive POTASSIUM CHLORIDE ER 10 MEQ CR-TABS take 1 tab po daily POTASSIUM CHLORIDE ER 10 MEQ CR-TABS POTASSIUM CHLORIDE Inactive PREDNISONE 20 MG TAB 1 tab twice daily for 3 day, then one daily for three days PREDNISONE 20 MG TAB 000519 PREDNISONE Inactive TESSALON PERLES 100 MG CAP 1 to 2 tablets by mouth 3 times daily as needed for cough TESSALON PERLES 100 MG CAP 999790 BENZONATATE Inactive POTASSIUM CHLORIDE CR 10 MEQ CPCR 1 capsule by mouth daily 02/14 POTASSIUM CHLORIDE CR 10 MEQ CPCR POTASSIUM CHLORIDE Inactive NITROSTAT 0.4 MG SUBL 1 tab under tongueas needed for chest pain ( may take 3 total, 5 min apart, then call 911) NITROSTAT 0.4 MG SUBL 549599 NITROGLYCERIN Inactive LOVASTATIN 40 MG TABS 1 pill by mouth nightly for cholesterol LOVASTATIN 40 MG TABS 142793 LOVASTATIN Inactive CEFDINIR 300 MG ORAL CAPS take 1 cap po bid x 10 days CEFDINIR 300 MG ORAL CAPS 20021018 CEFDINIR Inactive ACEBUTOLOL HCL 200 MG CAPS 1 cap in the morning and 2 caps in the evening ACEBUTOLOL HCL 200 MG CAPS 287733 ACEBUTOLOL HCL Inactive VENTOLIN HFA 108 (90 BASE) MCG/ACT AERS 2 -4 puffs four times a day PRN 2013 VENTOLIN HFA 108 (90 BASE) MCG/ACT AERS ALBUTEROL SULFATE Inactive LEVAQUIN 500 MG ORAL TABS Take 1 tab po daily x 8 days LEVAQUIN 500 MG ORAL TABS 954807 LEVOFLOXACIN Inactive PREDNISONE 20 MG TAB 2 tabs daily for 4 days, 1 tab daily for 4 days, 1/2 tab daily for 4 days PREDNISONE 20 MG TAB 668879 PREDNISONE Inactive LOVASTATIN 40 MG ORAL TABS Take 1 tab po every hs LOVASTATIN 40 MG ORAL TABS 036357 LOVASTATIN Inactive DILAUDID 2 MG ORAL TABS Take 1/2 tab po every 4 hours as needed for pain 2014 DILAUDID 2 MG ORAL TABS 000174 HYDROMORPHONE HCL Inactive AMITRIPTYLINE HCL 25 MG ORAL TABS 1 q hs prn AMITRIPTYLINE HCL 25 MG ORAL TABS 893653 AMITRIPTYLINE HCL Inactive MECLIZINE HCL 25 MG TAB 1 tablet three times daily for 3 days, then 1/2 tab three times daily for 3 days. MECLIZINE HCL 25 MG TAB 654195 MECLIZINE HCL Inactive AMLODIPINE BESYLATE 5 MG ORAL TABS Take 1 tab po daily AMLODIPINE BESYLATE 5 MG ORAL TABS 391861 AMLODIPINE BESYLATE Inactive TOPIRAMATE 25 MG TABS 1 tab po BID TOPIRAMATE 25 MG TABS 596288 TOPIRAMATE Inactive PREDNISONE 20 MG TAB 1 tablet twice daily for 2 days, then 1 tablet once daily for 2 days PREDNISONE 20 MG TAB 703400 PREDNISONE Inactive PREDNISONE 20 MG TAB 1 tab twice daily for 3 day, then one daily for three days PREDNISONE 20 MG TAB 181699 PREDNISONE Inactive NIFEDIPINE ER 30 MG ORAL [id number] 1 daily NIFEDIPINE ER 30 MG ORAL [id number] NIFEDIPINE Inactive AZITHROMYCIN 250 MG TABS 2 po qd x 1 day, then 1 po qd x 4 days AZITHROMYCIN 250 MG TABS 6345288 AZITHROMYCIN Inactive AZITHROMYCIN 250 MG TABS 2 po qd x 1 day, then 1 po qd x 4 days AZITHROMYCIN 250 MG TABS 8579823 AZITHROMYCIN Inactive PREDNISONE 20 MG TAB 2 po qd x 5 days PREDNISONE 20 MG TAB 281308 PREDNISONE Inactive Vital Signs Date Name Value [...] Panel - Chemistry sodium, serum 137 mmol/L 953-793 2684/01/03 potassium, serum 3.4 mmol/L 3.5-5.2 chloride, serum 102 mmol/L 98-107 carbon dioxide, venous blood 29.2 mmol/L 21.0-32.0 blood glucose 87 mg/dL 65-110 calcium, serum 8.5 mg/dL 8.5-10.1 urea nitrogen, blood 8 mg/dL 7-18 creatinine, serum 0.82 mg/dL 0.55-1.30 Lab Report: CBC - Hematology erythrocyte (RBC) [...] Panel, Comp. Metabolic Panel, Magnesium - Chemistry sodium, serum 142 mmol/L 047-100 9965/08/08 LDL cholesterol, serum 96 mg/dL 0-130 HDL cholesterol, serum 66 mg/dL 32-96 triglyceride, serum, fasting 92 mg/dL 30-200 cholesterol, serum 180 mg/dL 069-758 7412/08/08 carbon dioxide, venous blood 27.4 mmol/L 21.0-32.0 [...] 10.0-20.0 Encounters Code Encounter Date Provider Facility CPT-11780 Level 3 Est. Patient 09:58:58 CDT Harinder Cr [facility] CPT-84237 Level 3 Est. Patient 12:37:21 CDT Harinder Cr [facility] CPT-51007 Level 3 Est. Patient 18:37:17 CDT Harinder Cr [facility] CPT-28177 Level 4 Est. Patient 11:15:54 CDT Nettie Newberry [facility] CPT-81102 Level 3 Est. Patient 16:42:24 CDT Harinder Cr [facility] CPT-52920 Level 3 Est. Patient 15:03:36 CDT Harinder Cr [facility] CPT-37157 Level 3 Est. Patient 15:03:20 CDT Harinder Cr [facility] CPT-03616 Level 3 Est. Patient 12:14:34 CDT Harinder Cr [facility] CPT-40383 Level 3 Est. Patient 13:47:15 CDT Harinder Hernandez [facility] CPT-98559 Level 3 Est. Patient 14:08:24 CDT Harinder Hernandez [facility] CPT-25098 Level 3 Est. Patient 10:07:15 CDT Harinder Hernandez [facility] CPT-56169 Level 3 Est. Patient 10:06:59 CDT Hrainder Hernandez [facility] CPT-49293 Level 3 Est. Patient 15:53:29 CDT Jae Morgan [facility] CPT-88603 Level 3 Est. Patient 17:19:04 CDT Harinder Hernandez [facility] CPT-06233 Level 3 Est. Patient 11:13:01 CDT Harinder Hernandez [facility] CPT-63953 Level 3 Est. Patient 09:03:58 CDT Harinder Hernandez [facility] CPT-03011 Level 3 Est. Patient 14:46:45 LINE SUPPLY Harinder Hernandez [facility] CPT-52835 Level 3 Est. Patient 09:35:49 LINE SUPPLY Harinder Hernandez [facility] CPT-28866 Level 3 Est. Patient 09:29:37 LINE SUPPLY Harinder Hernandez [facility] CPT-35933 Level 3 Est. Patient 15:51:07 CDT Harinder Hernandez [facility] CPT-53045 Level 3 Est. Patient 18:13:13 CDT Harinder Hernandez [facility] CPT-54039 Level 3 Est. Patient 10:44:19 CDT Harinder Hernandez [facility] CPT-77579 Level 4 Est. Patient 10:07:19 LINE SUPPLY Harinder Hernandez [facility] CPT-39159 Level 3 Est. Patient 15:59:32 LINE SUPPLY Harinder Hernandez DO [facility] Procedures Code Procedure Name Date Entry Date Standard Description CPT-94709 BMP - LAB USE ONLY 16:45:09 LINE SUPPLY CPT-17246 Port a cath flush 12:00:13 LINE SUPPLY CPT-TCMM Transitional Care Mgmt-Moderate 11:20:16 LINE SUPPLY CPT-27725 First Vx - Ix admin for Medicare patients 17:35:15 CDT CPT-82452 Fluzone Preservative Free Intramuscular Suspension 17:35 :15 CDT CPT-85259 Microalbumin - LAB USE ONLY 11:52:05 CDT CPT-TCMM Transitional Care Mgmt-Moderate 11:33:57 CDT CPT-72073 No Charge Offi Visit 14:11:29 CDT CPT-70262 Magnesium - LAB USE ONLY 10:45:44 CDT CPT-69973 Lipid - LAB USE ONLY 10:45:44 CDT CPT-01316 CBC - LAB USE ONLY 10:45:44 CDT CPT-63679 Venipuncture Draw Fee 10:45:43 CDT CPT-55273 Venipuncture Draw Fee 18:21:27 CDT CPT-JTINJ Asp/Joint Injection 18:38:04 CDT CPT-43882 Immunization Each Additional Inj 17:38:04 CDT CPT-80508 Immunization Single Admin 17:38:04 CDT CPT-58650 Prevnar 13 17:38:04 CDT CPT-93542 Fluzone Quadrivalent preservative free (>=3yrs.) 17:38: 04 CDT CPT-66870 No Charge Offi Visit 11:14:03 CDT CPT-61664 Chest 2V Frontal and Lat 14:00:18 CDT CPT-OV Office Visit 16:10:28 CDT CPT-JTINJ Asp/Joint Injection 09:03:57 CDT CPT-Cryo Cryotherapy 09:35:49 LINE SUPPLY CPT-JTINJ Asp/Joint Injection 09:34:45 LINE SUPPLY CPT-J2930 Solu Medrol 125 mg (Methyl Prednisolone Sodium Succinate) 20:37:27 CDT CPT-80782 Abx/Therapy Injection 20:37:27 CDT CPT-26325 Port a cath flush 08:15:51 CDT CPT-60848 Port a cath flush 09:54:16 CDT CPT-22546 Port a cath flush 09:38:02 CDT CPT-33814 Port a cath flush 11:00:27 LINE SUPPLY
--- OUTSIDE RECORDS SUMMARY | 2017-12-29 00:27 | XMS REPORT | Clinical Summary ---
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 NIFEDIPINE 79844559975 Active Harinder Hernandez DO Active AMLODIPINE BESYLATE 5 MG TABS 1 tablet by mouth daily AMLODIPINE BESYLATE 22158133063 No Longer Active Harinder Heranndez DO Active TOPAMAX 25 MG ORAL TABS 1 tab po BID TOPIRAMATE 25391701248 Active Kortney Mccain Active FLUTICASONE PROPIONATE 50 MCG/ACT SUSP 2 sprays per nostril daily PRN Allergies FLUTICASONE PROPIONATE 22780722215 Active Kortney Mccain Active NIFEDIPINE ER 30 MG ORAL [id number] 1 daily NIFEDIPINE 18059716632 No Longer Active Harinder Hernandez DO Active POTASSIUM CHLORIDE 20 MEQ ORAL PACK Take 1 tablet by mouth daily POTASSIUM CHLORIDE 00690672349 Active Ciera Pimentel Active FLOVENT HFA 110 MCG/ACT AERO 2 puffs inhaled b.i.d. FLUTICASONE PROPIONATE HFA 16823219554 Active Harinder Hernandez DO Active POTASSIUM CHLORIDE CR 10 MEQ CPCR 1 capsule by mouth daily POTASSIUM CHLORIDE 55309497461 Active Harinder Hernandez DO Active EPIPEN 2-BRUNA 0.3 MG/0.3ML INJ SOAJ 1 INJ NEEDED EPINEPHRINE 18519332105 Active Harinder Hernandez DO Active PREDNISONE 20 MG TAB 1 tab twice daily for 3 day, then one daily for three days PREDNISONE 68593982231 No Longer Active Harinder Hernandez DO Active PREDNISONE 20 MG TAB 1 tablet twice daily for 2 days, then 1 tablet once daily for 2 days PREDNISONE 66504589844 No Longer Active Harinder Hernandez DO Active ASMANEX 120 METERED DOSES 220 MCG/INH INH AEPB 2 puffs orally twice daily MOMETASONE FUROATE 14347867947 Active Jeri Sosa RPT,RMA Active TOPIRAMATE 25 MG TABS 1 tab po BID TOPIRAMATE 69453022681 No Longer Active Nettie Newberry APRN Active AMLODIPINE BESYLATE 5 MG ORAL TABS Take 1 tab po daily AMLODIPINE BESYLATE 69506745432 No Longer Active Nettie Newberry APRN Active MECLIZINE HCL 25 MG TAB 1 tablet three times daily for 3 days, then 1/2 tab three times daily for 3 days. MECLIZINE HCL 99982924139 No Longer Active Nettie Newberry APRN Active AMITRIPTYLINE HCL 25 MG ORAL TABS 1 q hs prn AMITRIPTYLINE HCL 88395705166 No Longer Active Nettie Newberry APRN Active DILAUDID 2 MG ORAL TABS Take 1/2 tab po every 4 hours as needed for pain 2014 HYDROMORPHONE HCL 86337862970 No Longer Active Nettie Newberry APRN Active CLOPIDOGREL BISULFATE 75 MG ORAL TABS 1 tab by mouth once daily CLOPIDOGREL BISULFATE 75385708081 Active Harinder Hernandez DO Active ATORVASTATIN CALCIUM 10 MG ORAL TABS 1 at bedtime ATORVASTATIN CALCIUM 47926275856 Active Tawnya Pardo MA Active LOVASTATIN 40 MG ORAL TABS Take 1 tab po every hs LOVASTATIN 06593332442 No Longer Active Harinder Hernandez DO Active PREDNISONE 20 MG TAB 2 tabs daily for 4 days, 1 tab daily for 4 days, 1/2 tab daily for 4 days PREDNISONE 52914783920 No Longer Active Harinder Hernandez DO Active LEVAQUIN 500 MG ORAL TABS Take 1 tab po daily x 8 days LEVOFLOXACIN 42552060404 No Longer Active Harinder Hernandez DO Active VENTOLIN HFA 108 (90 BASE) MCG/ACT AERS 2 -4 puffs four times a day PRN 2013 ALBUTEROL SULFATE 17284948017 No Longer Active Jeri Sosa RPT,RMA Active ACEBUTOLOL HCL 200 MG CAPS 1 cap in the morning and 2 caps in the evening ACEBUTOLOL HCL 90674433945 No Longer Active Harinder Hernandez DO Active CEFDINIR 300 MG ORAL CAPS take 1 cap po bid x 10 days CEFDINIR 99014488268 No Longer Active Harinder Hernandez DO Active LOVASTATIN 40 MG TABS 1 pill by mouth nightly for cholesterol LOVASTATIN 29366064936 No Longer Active Nettie Newberry APRN Active NITROSTAT 0.4 MG SUBL 1 tab under tongueas needed for chest pain ( may take 3 total, 5 min apart, then call 911) NITROGLYCERIN 88695970125 No Longer Active Nettie Newberry APRN Active POTASSIUM CHLORIDE CR 10 MEQ CPCR 1 capsule by mouth daily 02/14 POTASSIUM CHLORIDE 10567028193 No Longer Active Nettie Newberry APRN Active TESSALON PERLES 100 MG CAP 1 to 2 tablets by mouth 3 times daily as needed for cough BENZONATATE 36108078630 No Longer Active Nettie Newberry APRN Active THEOPHYLLINE ER 200 MG ORAL [id number] Take 1 tab every 12 hours THEOPHYLLINE 19699264202 Active Tawnya Pardo MA Active PREDNISONE 20 MG TAB 2 po qd x 5 days PREDNISONE 80526621792 No Longer Active Jae Morgan MD Active AZITHROMYCIN 250 MG TABS 2 po qd x 1 day, then 1 po qd x 4 days AZITHROMYCIN 19758139369 No Longer Active Jae Morgan MD Active PREDNISONE 20 MG TAB 1 tab twice daily for 3 day, then one daily for three days PREDNISONE 67731216767 No Longer Active Jae Morgan MD Active SINGULAIR 10 MG TABS 1 pill by mouth every evening for breathing. MONTELUKAST SODIUM 09727508299 Active Tawnya Pardo MA Active TYLENOL 325 MG TAB 3 by mouth q4h as needed ACETAMINOPHEN 56087931761 Active Harinder Hernandez DO Active POTASSIUM CHLORIDE ER 10 MEQ CR-TABS take 1 tab po daily POTASSIUM CHLORIDE 30763709889 No Longer Active Harinder Hernandez DO Active PREDNISONE 20 MG TAB 1 TID x 2 days, then 1 BID x 3 days, then 1 Daily x 3 days, then stop PREDNISONE 38689079340 No Longer Active Jillina Frazell NON DESTRUCTIVE TESTING TECHNICIAN Active LEVAQUIN 500 MG TAB 1 tablet by mouth daily LEVOFLOXACIN 74961199121 No Longer Active Jillina Frazell NON DESTRUCTIVE TESTING TECHNICIAN Active NEURONTIN 300 MG CAP 1 cap by mouth three times daily for restless leg 06/22 GABAPENTIN 60829433302 No Longer Active Harinder Hernandez DO Active BENZONATATE 100 MG CAPS 1 cap po TID PRN BENZONATATE 06750935555 No Longer Active Harinder Hernandez DO Active MONTELUKAST SODIUM 10 MG TABS 1 tab po in the evening MONTELUKAST SODIUM 74901042641 No Longer Active Harinder Hernandez DO Active MUPIROCIN 2 % OINT apply to affected area BID x 14 days MUPIROCIN 10687798432 No Longer Active Harinder Hernandez DO Active TYLENOL EXTRA STRENGTH 500 MG TABS as needed ACETAMINOPHEN 11138584802 No Longer Active Harinder Hernandez DO Active PREDNISONE 10 MG TABS 1 tab po daily PREDNISONE 35587238347 No Longer Active Harinder Hernandez DO Active PREDNISONE 20 MG TAB 2 tabs daily for 4 days, 1 tab daily for 4 days, 1/2 tab daily for 4 days PREDNISONE 85358054951 No Longer Active Harinder Hernandez DO Active AZITHROMYCIN 250 MG TABS 2 po qd x 1 day, then 1 po qd x 4 days AZITHROMYCIN 49734143357 No Longer Active Harinder Hernandez DO Active PREDNISONE 20 MG TAB 3 tabs today, then 1 tab twice daily for 3 day, then one daily for three days PREDNISONE 68012265511 No Longer Active Harinder Hernandez DO Active NIFEDIAC CC 30 MG [id number] 1 tablet daily for raynaud's syndrome NIFEDIPINE 25025879648 No Longer Active Tawnya Pardo MA Active AMBIEN 10 MG TAB 1/2 tab by mouth at bedtime as needed for sleep ZOLPIDEM TARTRATE 66564804480 Active Kortney Mccain Active CLONAZEPAM 1 MG TABS 1 tablet at bedtime for insomnia and restless legs 09/14 CLONAZEPAM 31587217107 Active Harinder Hernandez DO Active CLONAZEPAM 0.5 MG TABS 1 tab po daily CLONAZEPAM 03788403857 No Longer Active Harinder Hernandez DO Active PREDNISONE 10 MG TAB 1 tablet daily for COPD PREDNISONE 40161688422 Active Ciera Pimentel Active PROAIR HFA 108 (90 BASE) MCG/ACT AERS 2 puffs four times a day as needed 2012 ALBUTEROL SULFATE 70345078939 Active Harinder Hernandez DO Active FLOVENT HFA 110 MCG/ACT AERO 2 puffs inhaled b.i.d. FLUTICASONE PROPIONATE HFA 08754981123 Active Kortney Mccain Active ACIPHEX 20 MG TBEC 1 tab po daily RABEPRAZOLE SODIUM 31750406713 Active Kaylah Newberry Active CLONAZEPAM 0.5 MG TABS 1 tab po daily CLONAZEPAM 0.5 MG TABS 788106 CLONAZEPAM Inactive PREDNISONE 20 MG TAB 3 tabs today, then 1 tab twice daily for 3 day, then one daily for three days PREDNISONE 20 MG TAB 394790 PREDNISONE Inactive PREDNISONE 20 MG TAB 2 tabs daily for 4 days, 1 tab daily for 4 days, 1/2 tab daily for 4 days PREDNISONE 20 MG TAB 664841 PREDNISONE Inactive PREDNISONE 10 MG TABS 1 tab po daily PREDNISONE 10 MG TABS 958254 PREDNISONE Inactive TYLENOL EXTRA STRENGTH 500 MG TABS as needed TYLENOL EXTRA STRENGTH 500 MG TABS 978274 ACETAMINOPHEN Inactive MUPIROCIN 2 % OINT apply to affected area BID x 14 days MUPIROCIN 2 % OINT 290172 MUPIROCIN Inactive MONTELUKAST SODIUM 10 MG TABS 1 tab po in the evening MONTELUKAST SODIUM 10 MG TABS 20010818 MONTELUKAST SODIUM Inactive BENZONATATE 100 MG CAPS 1 cap po TID PRN BENZONATATE 100 MG CAPS 179312 BENZONATATE Inactive NEURONTIN 300 MG CAP 1 cap by mouth three times daily for restless leg 06/22 NEURONTIN 300 MG CAP 779540 GABAPENTIN Inactive LEVAQUIN 500 MG TAB 1 tablet by mouth daily LEVAQUIN 500 MG TAB 737828 LEVOFLOXACIN Inactive PREDNISONE 20 MG TAB 1 TID x 2 days, then 1 BID x 3 days, then 1 Daily x 3 days, then stop PREDNISONE 20 MG TAB 234675 PREDNISONE Inactive POTASSIUM CHLORIDE ER 10 MEQ CR-TABS take 1 tab po daily POTASSIUM CHLORIDE ER 10 MEQ CR-TABS POTASSIUM CHLORIDE Inactive PREDNISONE 20 MG TAB 1 tab twice daily for 3 day, then one daily for three days PREDNISONE 20 MG TAB 744123 PREDNISONE Inactive TESSALON PERLES 100 MG CAP 1 to 2 tablets by mouth 3 times daily as needed for cough TESSALON PERLES 100 MG CAP 326722 BENZONATATE Inactive POTASSIUM CHLORIDE CR 10 MEQ CPCR 1 capsule by mouth daily 02/14 POTASSIUM CHLORIDE CR 10 MEQ CPCR POTASSIUM CHLORIDE Inactive NITROSTAT 0.4 MG SUBL 1 tab under tongueas needed for chest pain ( may take 3 total, 5 min apart, then call 911) NITROSTAT 0.4 MG SUBL 679199 NITROGLYCERIN Inactive LOVASTATIN 40 MG TABS 1 pill by mouth nightly for cholesterol LOVASTATIN 40 MG TABS 508398 LOVASTATIN Inactive CEFDINIR 300 MG ORAL CAPS take 1 cap po bid x 10 days CEFDINIR 300 MG ORAL CAPS 702942 CEFDINIR Inactive ACEBUTOLOL HCL 200 MG CAPS 1 cap in the morning and 2 caps in the evening ACEBUTOLOL HCL 200 MG CAPS 071646 ACEBUTOLOL HCL Inactive VENTOLIN HFA 108 (90 BASE) MCG/ACT AERS 2 -4 puffs four times a day PRN 2013 VENTOLIN HFA 108 (90 BASE) MCG/ACT AERS ALBUTEROL SULFATE Inactive LEVAQUIN 500 MG ORAL TABS Take 1 tab po daily x 8 days LEVAQUIN 500 MG ORAL TABS 369702 LEVOFLOXACIN Inactive PREDNISONE 20 MG TAB 2 tabs daily for 4 days, 1 tab daily for 4 days, 1/2 tab daily for 4 days PREDNISONE 20 MG TAB 564225 PREDNISONE Inactive LOVASTATIN 40 MG ORAL TABS Take 1 tab po every hs LOVASTATIN 40 MG ORAL TABS 985442 LOVASTATIN Inactive DILAUDID 2 MG ORAL TABS Take 1/2 tab po every 4 hours as needed for pain 2014 DILAUDID 2 MG ORAL TABS 071008 HYDROMORPHONE HCL Inactive AMITRIPTYLINE HCL 25 MG ORAL TABS 1 q hs prn AMITRIPTYLINE HCL 25 MG ORAL TABS 388491 AMITRIPTYLINE HCL Inactive MECLIZINE HCL 25 MG TAB 1 tablet three times daily for 3 days, then 1/2 tab three times daily for 3 days. MECLIZINE HCL 25 MG TAB 703817 MECLIZINE HCL Inactive AMLODIPINE BESYLATE 5 MG ORAL TABS Take 1 tab po daily AMLODIPINE BESYLATE 5 MG ORAL TABS 759322 AMLODIPINE BESYLATE Inactive TOPIRAMATE 25 MG TABS 1 tab po BID TOPIRAMATE 25 MG TABS 657582 TOPIRAMATE Inactive PREDNISONE 20 MG TAB 1 tablet twice daily for 2 days, then 1 tablet once daily for 2 days PREDNISONE 20 MG TAB 181262 PREDNISONE Inactive PREDNISONE 20 MG TAB 1 tab twice daily for 3 day, then one daily for three days PREDNISONE 20 MG TAB 501859 PREDNISONE Inactive NIFEDIPINE ER 30 MG ORAL [id number] 1 daily NIFEDIPINE ER 30 MG ORAL [id number] NIFEDIPINE Inactive AMLODIPINE BESYLATE 5 MG TABS 1 tablet by mouth daily AMLODIPINE BESYLATE 5 MG TABS 812798 AMLODIPINE BESYLATE Inactive AZITHROMYCIN 250 MG TABS 2 po qd x 1 day, then 1 po qd x 4 days AZITHROMYCIN 250 MG TABS 9925252 AZITHROMYCIN Inactive AZITHROMYCIN 250 MG TABS 2 po qd x 1 day, then 1 po qd x 4 days AZITHROMYCIN 250 MG TABS 3907785 AZITHROMYCIN Inactive PREDNISONE 20 MG TAB 2 po qd x 5 days PREDNISONE 20 MG TAB 916346 PREDNISONE Inactive Vital Signs Date Name Value [...] Panel - Chemistry sodium, serum 137 mmol/L 689-154 2076/01/03 potassium, serum 3.4 mmol/L 3.5-5.2 chloride, serum [...] Magnesium - Chemistry cholesterol, serum 180 mg/dL 062-968 7992/08/08 triglyceride, serum, fasting 92 mg/dL 30-200 HDL cholesterol, serum 66 mg/dL 32-96 LDL cholesterol, serum 96 mg/dL 0-130 sodium, serum 142 mmol/L 750-204 1225/08/08 carbon dioxide, venous blood 27.4 mmol/L 21.0-32.0 [...] 10.0-20.0 Encounters Code Encounter Date Provider Facility CPT-79234 Level 4 Est. Patient 10:19:23 CDT Harinder Cr [facility] CPT-88859 Level 3 Est. Patient 09:58:58 CDT Harinder Cr [facility] CPT-31697 Level 3 Est. Patient 12:37:21 CDT Harinder Cr [facility] CPT-29265 Level 3 Est. Patient 18:37:17 CDT Harinder Cr [facility] CPT-42674 Level 4 Est. Patient 11:15:54 CDT Nettie Newberry [facility] CPT-46298 Level 3 Est. Patient 16:42:24 CDT Harinder Cr [facility] CPT-78966 Level 3 Est. Patient 15:03:36 CDT Harinder Cr [facility] CPT-56220 Level 3 Est. Patient 15:03:20 CDT Harinder Cr [facility] CPT-51887 Level 3 Est. Patient 12:14:34 CDT Harinder Hernandez [facility] CPT-15220 Level 3 Est. Patient 13:47:15 CDT Harinder Hernandez [facility] CPT-12551 Level 3 Est. Patient 14:08:24 CDT Harinder Hernandez [facility] CPT-65086 Level 3 Est. Patient 10:07:15 CDT Harinder Hernandez [facility] CPT-54408 Level 3 Est. Patient 10:06:59 CDT Harinder Hernandez [facility] CPT-90833 Level 3 Est. Patient 15:53:29 CDT Jae Morgan MD [facility] CPT-38152 Level 3 Est. Patient 17:19:04 CDT Harinder Hernandez [facility] CPT-76090 Level 3 Est. Patient 11:13:01 CDT Harinder Hernandez [facility] CPT-38834 Level 3 Est. Patient 09:03:58 CDT Harinder Hernandez [facility] CPT-26507 Level 3 Est. Patient 14:46:45 [employer] Harinder Hernandez [facility] CPT-06555 Level 3 Est. Patient 09:35:49 [employer] Harinder Hernandez [facility] CPT-60801 Level 3 Est. Patient 09:29:37 [employer] Harinder Hernandez [facility] CPT-63187 Level 3 Est. Patient 15:51:07 CDT Harinder Hernandez [facility] CPT-57488 Level 3 Est. Patient 18:13:13 CDT Harinder Shaye Hernandez [facility] CPT-78316 Level 3 Est. Patient 10:44:19 CDT Harinder Cr David [facility] CPT-38599 Level 4 Est. Patient 10:07:19 [employer] Harinder Hernandez [facility] CPT-14641 Level 3 Est. Patient 15:59:32 [employer] Harinder Cr [facility] Procedures Code Procedure Name Date Entry Date Standard Description CPT-49337 Hip, complete, 2-3 views - XRAY USE ONLY 10:28:40 CDT CPT-04643 BMP - LAB USE ONLY 16:45:09 [employer] CPT-57677 Port a cath flush 12:00:13 [employer] CPT-TCMM Transitional Care Mgmt-Moderate 11:20:16 [employer] CPT-39656 First Vx - Ix admin for Medicare patients 17:35:15 CDT CPT-69465 Fluzone Preservative Free Intramuscular Suspension 17:35 :15 CDT CPT-92944 Microalbumin - LAB USE ONLY 11:52:05 CDT CPT-TCMM Transitional Care Mgmt-Moderate 11:33:57 CDT CPT-61363 No Charge Offi Visit 14:11:29 CDT CPT-97831 Magnesium - LAB USE ONLY 10:45:44 CDT CPT-20197 Lipid - LAB USE ONLY 10:45:44 CDT CPT-04571 CBC - LAB USE ONLY 10:45:44 CDT CPT-77880 Venipuncture Draw Fee 10:45:43 CDT CPT-99256 Venipuncture Draw Fee 18:21:27 CDT CPT-JTINJ Asp/Joint Injection 18:38:04 CDT CPT-58676 Immunization Each Additional Inj 17:38:04 CDT CPT-18364 Immunization Single Admin 17:38:04 CDT CPT-09461 Prevnar 13 17:38:04 CDT CPT-96571 Fluzone Quadrivalent preservative free (>=3yrs.) 17:38: 04 CDT CPT-76909 No Charge Offi Visit 11:14:03 CDT CPT-20730 Chest 2V Frontal and Lat 14:00:18 CDT CPT-OV Office Visit 16:10:28 CDT CPT-JTINJ Asp/Joint Injection 09:03:57 CDT CPT-Cryo Cryotherapy 09:35:49 [employer] CPT-JTINJ Asp/Joint Injection 09:34:45 [employer] CPT-J2930 Solu Medrol 125 mg (Methyl Prednisolone Sodium Succinate) 20:37:27 CDT CPT-22113 Abx/Therapy Injection 20:37:27 CDT CPT-16635 Port a cath flush 08:15:51 CDT CPT-17668 Port a cath flush 09:54:16 CDT CPT-21526 Port a cath flush 09:38:02 CDT CPT-90265 Port a cath flush 11:00:27 [employer]
--- OUTSIDE RECORDS SUMMARY | 2017-12-29 00:28 | XMS REPORT | Clinical Summary ---
Author Author Admin, QIE Organization [facility] Address Unknown Phone Unavailable Allergies, Adverse [...] MG/0.3ML INJ SOAJ 1 INJ NEEDED EPINEPHRINE [id number] Active Tawnya Pardo MA Active PREDNISONE 20 MG TAB 1 tab twice daily for 3 day, then one daily for three days PREDNISONE 09227512186 No Longer Active Harinder Hernandez DO Active PREDNISONE 20 MG TAB 1 tablet twice daily for 2 days, then 1 tablet once daily for 2 days PREDNISONE 77310204794 No Longer Active Harinder Hernandez DO Active ASMANEX 120 METERED DOSES 220 MCG/INH INH AEPB 2 puffs orally twice daily MOMETASONE FUROATE 89343965923 Active Jeri Sosa RPT,RMA Active NIFEDIPINE ER 30 MG ORAL [id number] 1 daily NIFEDIPINE 17206442033 Active Kaylah Newberry Active TOPIRAMATE 25 MG TABS 1 tab po BID TOPIRAMATE 25160719922 No Longer Active Nettie Newberry APRN Active AMLODIPINE BESYLATE 5 MG ORAL TABS Take 1 tab po daily AMLODIPINE BESYLATE 39481155036 No Longer Active Nettie Newberry APRN Active MECLIZINE HCL 25 MG TAB 1 tablet three times daily for 3 days, then 1/2 tab three times daily for 3 days. MECLIZINE HCL 80970676838 No Longer Active Nettie Newberry APRN Active AMITRIPTYLINE HCL 25 MG ORAL TABS 1 q hs prn AMITRIPTYLINE HCL 75306586394 No Longer Active Ntetie Newberry APRN Active DILAUDID 2 MG ORAL TABS Take 1/2 tab po every 4 hours as needed for pain 2014 HYDROMORPHONE HCL 89405866650 No Longer Active Nettie Newberry APRN Active CLOPIDOGREL BISULFATE 75 MG ORAL TABS 1 tab by mouth once daily CLOPIDOGREL BISULFATE 44213530940 Active Tawnya Pardo MA Active ATORVASTATIN CALCIUM 10 MG ORAL TABS 1 at bedtime ATORVASTATIN CALCIUM 70183868589 Active Tawnya Pardo MA Active LOVASTATIN 40 MG ORAL TABS Take 1 tab po every hs LOVASTATIN 29348243115 No Longer Active Harinder Hernandez DO Active PREDNISONE 20 MG TAB 2 tabs daily for 4 days, 1 tab daily for 4 days, 1/2 tab daily for 4 days PREDNISONE 08464098735 No Longer Active Harinder Hernandez DO Active LEVAQUIN 500 MG ORAL TABS Take 1 tab po daily x 8 days LEVOFLOXACIN 73151590713 No Longer Active Harinder Hernandez DO Active VENTOLIN HFA 108 (90 BASE) MCG/ACT AERS 2 -4 puffs four times a day PRN 2013 ALBUTEROL SULFATE 65509282449 No Longer Active Jeri Sosa RPT,RMA Active ACEBUTOLOL HCL 200 MG CAPS 1 cap in the morning and 2 caps in the evening ACEBUTOLOL HCL 08569811539 No Longer Active Harinder Hernandez DO Active CEFDINIR 300 MG ORAL CAPS take 1 cap po bid x 10 days CEFDINIR 68785390069 No Longer Active Harinder Hernandez DO Active LOVASTATIN 40 MG TABS 1 pill by mouth nightly for cholesterol LOVASTATIN 53116307010 No Longer Active Nettie Newberry APRN Active NITROSTAT 0.4 MG SUBL 1 tab under tongueas needed for chest pain ( may take 3 total, 5 min apart, then call 911) NITROGLYCERIN 40938390296 No Longer Active Nettie Newberry APRN Active POTASSIUM CHLORIDE CR 10 MEQ CPCR 1 capsule by mouth daily 02/14 POTASSIUM CHLORIDE 18180775266 No Longer Active Nettie Newberry APRN Active TESSALON PERLES 100 MG CAP 1 to 2 tablets by mouth 3 times daily as needed for cough BENZONATATE 93414045125 No Longer Active Nettie Newberry APRN Active THEOPHYLLINE ER 200 MG ORAL [id number] Take 1 tab every 12 hours THEOPHYLLINE 77554693998 Active Tawnya Pardo MA Active PREDNISONE 20 MG TAB 2 po qd x 5 days PREDNISONE 26042008161 No Longer Active Jae Morgan MD Active AZITHROMYCIN 250 MG TABS 2 po qd x 1 day, then 1 po qd x 4 days AZITHROMYCIN 21902576946 No Longer Active Jae Morgan MD Active PREDNISONE 20 MG TAB 1 tab twice daily for 3 day, then one daily for three days PREDNISONE 06119306960 No Longer Active Jae Morgan MD Active SINGULAIR 10 MG TABS 1 pill by mouth every evening for breathing. MONTELUKAST SODIUM 56625431957 Active Tawnya Pardo MA Active TYLENOL 325 MG TAB 3 by mouth q4h as needed ACETAMINOPHEN 86826425421 Active Harinder Hernandez DO Active POTASSIUM CHLORIDE ER 10 MEQ CR-TABS take 1 tab po daily POTASSIUM CHLORIDE 08479732470 No Longer Active Harinder Hernandez DO Active PREDNISONE 20 MG TAB 1 TID x 2 days, then 1 BID x 3 days, then 1 Daily x 3 days, then stop PREDNISONE 55492792222 No Longer Active John Montemayor APRN Active LEVAQUIN 500 MG TAB 1 tablet by mouth daily LEVOFLOXACIN 55139663985 No Longer Active Jillkvng Montemayor APRN Active NEURONTIN 300 MG CAP 1 cap by mouth three times daily for restless leg 06/22 GABAPENTIN 55932099940 No Longer Active Harinder Hernandez DO Active BENZONATATE 100 MG CAPS 1 cap po TID PRN BENZONATATE 50504447239 No Longer Active Harinder Hernandez DO Active MONTELUKAST SODIUM 10 MG TABS 1 tab po in the evening MONTELUKAST SODIUM 97963467786 No Longer Active Harinder Hernandez DO Active MUPIROCIN 2 % OINT apply to affected area BID x 14 days MUPIROCIN 48465785247 No Longer Active Harinder Hernandez DO Active TYLENOL EXTRA STRENGTH 500 MG TABS as needed ACETAMINOPHEN 07353024760 No Longer Active Harinder Hernandez DO Active PREDNISONE 10 MG TABS 1 tab po daily PREDNISONE 88928775638 No Longer Active Harinder Hernandez DO Active PREDNISONE 20 MG TAB 2 tabs daily for 4 days, 1 tab daily for 4 days, 1/2 tab daily for 4 days PREDNISONE 32022361957 No Longer Active Harinder Hernandez DO Active AZITHROMYCIN 250 MG TABS 2 po qd x 1 day, then 1 po qd x 4 days AZITHROMYCIN 09285053552 No Longer Active Harinder Hernandez DO Active PREDNISONE 20 MG TAB 3 tabs today, then 1 tab twice daily for 3 day, then one daily for three days PREDNISONE 56818746630 No Longer Active Harinder Hernandez DO Active NIFEDIAC CC 30 MG [id number] 1 tablet daily for raynaud's syndrome NIFEDIPINE 07275794654 No Longer Active Tawnya Pardo MA Active AMBIEN 10 MG TAB 1/2 tab by mouth at bedtime as needed for sleep ZOLPIDEM TARTRATE 14750417422 Active Harinder Hernandez DO Active CLONAZEPAM 1 MG TABS 1 tablet at bedtime for insomnia and restless legs 09/14 CLONAZEPAM 86337107488 Active Kaylah Newberry Active CLONAZEPAM 0.5 MG TABS 1 tab po daily CLONAZEPAM 20934709412 No Longer Active Harinder Hernandez DO Active PREDNISONE 10 MG TAB 1 tablet daily for COPD PREDNISONE 33718248927 Active Tawnya Pardo MA Active PROAIR HFA 108 (90 BASE) MCG/ACT AERS 2 puffs four times a day as needed 2012 ALBUTEROL SULFATE 15171154316 Active Tawnya Pardo MA Active FLOVENT HFA 110 MCG/ACT AERO 2 puffs inhaled b.i.d. FLUTICASONE PROPIONATE HFA 31593395291 Active Tawnya Pardo MA Active ACIPHEX 20 MG TBEC 1 tab po daily RABEPRAZOLE SODIUM 45737825953 Active Kaylah Newberry Active CLONAZEPAM 0.5 MG TABS 1 tab po daily CLONAZEPAM 0.5 MG TABS 807077 CLONAZEPAM Inactive PREDNISONE 20 MG TAB 3 tabs today, then 1 tab twice daily for 3 day, then one daily for three days PREDNISONE 20 MG TAB 378796 PREDNISONE Inactive PREDNISONE 20 MG TAB 2 tabs daily for 4 days, 1 tab daily for 4 days, 1/2 tab daily for 4 days PREDNISONE 20 MG TAB 717638 PREDNISONE Inactive PREDNISONE 10 MG TABS 1 tab po daily PREDNISONE 10 MG TABS 286586 PREDNISONE Inactive TYLENOL EXTRA STRENGTH 500 MG TABS as needed TYLENOL EXTRA STRENGTH 500 MG TABS 545063 ACETAMINOPHEN Inactive MUPIROCIN 2 % OINT apply to affected area BID x 14 days MUPIROCIN 2 % OINT 842200 MUPIROCIN Inactive MONTELUKAST SODIUM 10 MG TABS 1 tab po in the evening MONTELUKAST SODIUM 10 MG TABS 699030 MONTELUKAST SODIUM Inactive BENZONATATE 100 MG CAPS 1 cap po TID PRN BENZONATATE 100 MG CAPS 510721 BENZONATATE Inactive NEURONTIN 300 MG CAP 1 cap by mouth three times daily for restless leg 06/22 NEURONTIN 300 MG CAP 762026 GABAPENTIN Inactive LEVAQUIN 500 MG TAB 1 tablet by mouth daily LEVAQUIN 500 MG TAB 132855 LEVOFLOXACIN Inactive PREDNISONE 20 MG TAB 1 TID x 2 days, then 1 BID x 3 days, then 1 Daily x 3 days, then stop PREDNISONE 20 MG TAB 041147 PREDNISONE Inactive POTASSIUM CHLORIDE ER 10 MEQ CR-TABS take 1 tab po daily POTASSIUM CHLORIDE ER 10 MEQ CR-TABS POTASSIUM CHLORIDE Inactive PREDNISONE 20 MG TAB 1 tab twice daily for 3 day, then one daily for three days PREDNISONE 20 MG TAB 018741 PREDNISONE Inactive TESSALON PERLES 100 MG CAP 1 to 2 tablets by mouth 3 times daily as needed for cough TESSALON PERLES 100 MG CAP 038058 BENZONATATE Inactive POTASSIUM CHLORIDE CR 10 MEQ CPCR 1 capsule by mouth daily 02/14 POTASSIUM CHLORIDE CR 10 MEQ CPCR POTASSIUM CHLORIDE Inactive NITROSTAT 0.4 MG SUBL 1 tab under tongueas needed for chest pain ( may take 3 total, 5 min apart, then call 911) NITROSTAT 0.4 MG SUBL 412252 NITROGLYCERIN Inactive LOVASTATIN 40 MG TABS 1 pill by mouth nightly for cholesterol LOVASTATIN 40 MG TABS 896919 LOVASTATIN Inactive CEFDINIR 300 MG ORAL CAPS take 1 cap po bid x 10 days CEFDINIR 300 MG ORAL CAPS 992338 CEFDINIR Inactive ACEBUTOLOL HCL 200 MG CAPS 1 cap in the morning and 2 caps in the evening ACEBUTOLOL HCL 200 MG CAPS 875938 ACEBUTOLOL HCL Inactive VENTOLIN HFA 108 (90 BASE) MCG/ACT AERS 2 -4 puffs four times a day PRN 2013 VENTOLIN HFA 108 (90 BASE) MCG/ACT AERS ALBUTEROL SULFATE Inactive LEVAQUIN 500 MG ORAL TABS Take 1 tab po daily x 8 days LEVAQUIN 500 MG ORAL TABS 154133 LEVOFLOXACIN Inactive PREDNISONE 20 MG TAB 2 tabs daily for 4 days, 1 tab daily for 4 days, 1/2 tab daily for 4 days PREDNISONE 20 MG TAB 691777 PREDNISONE Inactive LOVASTATIN 40 MG ORAL TABS Take 1 tab po every hs LOVASTATIN 40 MG ORAL TABS 704373 LOVASTATIN Inactive DILAUDID 2 MG ORAL TABS Take 1/2 tab po every 4 hours as needed for pain 2014 DILAUDID 2 MG ORAL TABS 906951 HYDROMORPHONE HCL Inactive AMITRIPTYLINE HCL 25 MG ORAL TABS 1 q hs prn AMITRIPTYLINE HCL 25 MG ORAL TABS 863190 AMITRIPTYLINE HCL Inactive MECLIZINE HCL 25 MG TAB 1 tablet three times daily for 3 days, then 1/2 tab three times daily for 3 days. MECLIZINE HCL 25 MG TAB 466661 MECLIZINE HCL Inactive AMLODIPINE BESYLATE 5 MG ORAL TABS Take 1 tab po daily AMLODIPINE BESYLATE 5 MG ORAL TABS 236431 AMLODIPINE BESYLATE Inactive TOPIRAMATE 25 MG TABS 1 tab po BID TOPIRAMATE 25 MG TABS 980248 TOPIRAMATE Inactive PREDNISONE 20 MG TAB 1 tablet twice daily for 2 days, then 1 tablet once daily for 2 days PREDNISONE 20 MG TAB 249777 PREDNISONE Inactive PREDNISONE 20 MG TAB 1 tab twice daily for 3 day, then one daily for three days PREDNISONE 20 MG TAB 041628 PREDNISONE Inactive AZITHROMYCIN 250 MG TABS 2 po qd x 1 day, then 1 po qd x 4 days AZITHROMYCIN 250 MG TABS 5861410 AZITHROMYCIN Inactive AZITHROMYCIN 250 MG TABS 2 po qd x 1 day, then 1 po qd x 4 days AZITHROMYCIN 250 MG TABS 8370662 AZITHROMYCIN Inactive PREDNISONE 20 MG TAB 2 po qd x 5 days PREDNISONE 20 MG TAB 406877 PREDNISONE Inactive Vital Signs Date Name Value [...] 0.40 mg/dL 0.00-1.00 sodium, serum 142 mmol/L 375-534 6206/08/08 LDL cholesterol, serum 96 mg/dL 0-130 HDL [...] 10.0-20.0 Encounters Code Encounter Date Provider Facility CPT-39776 Level 3 Est. Patient 09:58:58 CDT Harinder Cr [facility] CPT-98647 Level 3 Est. Patient 12:37:21 CDT Harinder Cr [facility] CPT-69711 Level 3 Est. Patient 18:37:17 CDT Harinder [facility] CPT-02206 Level 4 Est. Patient 11:15:54 CDT Nettie Newberry APRN [facility] CPT-48136 Level 3 Est. Patient 16:42:24 CDT Harinder [facility] CPT-54286 Level 3 Est. Patient 15:03:36 CDT Harinder [facility] CPT-43464 Level 3 Est. Patient 15:03:20 CDT Harinder Hernandez [facility] CPT-85572 Level 3 Est. Patient 12:14:34 CDT Harinder Hernandez [facility] CPT-19124 Level 3 Est. Patient 13:47:15 CDT Harinder Hernandez [facility] CPT-75777 Level 3 Est. Patient 14:08:24 CDT Harinder Hernandez [facility] CPT-58556 Level 3 Est. Patient 10:07:15 CDT Harinder Hernandez [facility] CPT-46441 Level 3 Est. Patient 10:06:59 CDT Harinder Hernandez [facility] CPT-07179 Level 3 Est. Patient 15:53:29 CDT Jae Morgan MD [facility] CPT-88838 Level 3 Est. Patient 17:19:04 CDT Harinder Hernandez [facility] CPT-89870 Level 3 Est. Patient 11:13:01 CDT Harinder Hernandez [facility] CPT-58233 Level 3 Est. Patient 09:03:58 CDT Harinder Hernandez [facility] CPT-35447 Level 3 Est. Patient 14:46:45 [employer] Harinder Hernandez [facility] CPT-86171 Level 3 Est. Patient 09:35:49 [employer] Harinder Hernandez [facility] CPT-21328 Level 3 Est. Patient 09:29:37 [employer] Harinder Hernandez [facility] CPT-39464 Level 3 Est. Patient 15:51:07 CDT Harinder Hernandez [facility] CPT-81487 Level 3 Est. Patient 18:13:13 CDT [facility] CPT-06415 Level 3 Est. Patient 10:44:19 CDT Harinder Hernandez [facility] CPT-42738 Level 4 Est. Patient 10:07:19 [employer] Harinder Hernandez [facility] CPT-21408 Level 3 Est. Patient 15:59:32 [employer] [facility]inder [facility] Procedures Code Procedure Name Date Entry Date Standard Description CPT-00484 First Vx - Ix admin for Medicare patients 17:35:15 CDT CPT-02935 Fluzone Preservative Free Intramuscular Suspension 17:35 :15 CDT CPT-70139 Microalbumin - LAB USE ONLY 11:52:05 CDT CPT-TCMM Transitional Care Mgmt-Moderate 11:33:57 CDT CPT-25110 No Charge Offi Visit 14:11:29 CDT CPT-73455 Magnesium - LAB USE ONLY 10:45:44 CDT CPT-53143 Lipid - LAB USE ONLY 10:45:44 CDT CPT-52801 CBC - LAB USE ONLY 10:45:44 CDT CPT-19163 Venipuncture Draw Fee 10:45:43 CDT CPT-00131 Venipuncture Draw Fee 18:21:27 CDT CPT-JTINJ Asp/Joint Injection 18:38:04 CDT CPT-47468 Immunization Each Additional Inj 17:38:04 CDT CPT-50663 Immunization Single Admin 17:38:04 CDT CPT-58407 Prevnar 13 17:38:04 CDT CPT-69993 Fluzone Quadrivalent preservative free (>=3yrs.) 17:38: 04 CDT CPT-17007 No Charge Offi Visit 11:14:03 CDT CPT-05309 Chest 2V Frontal and Lat 14:00:18 CDT CPT-OV Office Visit 16:10:28 CDT CPT-JTINJ Asp/Joint Injection 09:03:57 CDT CPT-Cryo Cryotherapy 09:35:49 [employer] CPT-JTINJ Asp/Joint Injection 09:34:45 [employer] CPT-J2930 Solu Medrol 125 mg (Methyl Prednisolone Sodium Succinate) 20:37:27 CDT CPT-62036 Abx/Therapy Injection 20:37:27 CDT CPT-95982 Port a cath flush 08:15:51 CDT CPT-20970 Port a cath flush 09:54:16 CDT CPT-54130 Port a cath flush 09:38:02 CDT CPT-28222 Port a cath flush 11:00:27 [employer]
--- OUTSIDE RECORDS SUMMARY | 2017-12-29 00:28 | XMS REPORT ---
Author Author [facility] Medical Staff Organization [facility] Address [address] [place] [id number] Phone [phone] Care Team Providers Care Electrocardiograph Repairer Name Role Phone REBEKAH PINO SAIGE PP [phone] REBEKAH SAIGE PP [phone] REBEKAH PINO SAIGE PP [phone] Summary purpose TRANSITION OF CARE AUTO GENERATION Chief Complaint and Reason for Visit Admit Diagnosis 1 COLONOSCOPY Problem list No authorized problems tracked for continuity of care are available for this visit. Encounters The following conditions tracked for encounter diagnoses were recorded for this visit: Finding or Diagnosis Status Certainty Chronicity Onset *COLONOSCOPY Active Medications No medications recorded for this patient [...] or Verified Zofran Drug Allergy Zofran Confirmed or Verified Zofran Drug Allergy ondansetron Confirmed or Verified amitriptyline Drug Allergy amitriptyline Confirmed or Verified azithromycin Drug Allergy azithromycin Confirmed or Verified peanut Drug Allergy peanut Confirmed or Verified black walnut Drug Allergy black walnut Confirmed or Verified Immunizations No immunizations recorded for this patient visit Relevant diagnostic tests and/or laboratory data No authorized results are available for this patient visit History of procedures No procedures recorded for this patient visit. Functional status Functional Status Finding Observation Time Hearing Prob Loc none [id number]:15 Vision Problems yes :15 Vision Correct Dev glasses :15 Ambulation Asst Dev none :15 Range of Motion full :35 Muscle Strength RUE 5 ROM full resist :35 Muscle Strength RLE 5 ROM full resist :35 Muscle Strength LUE 5 ROM full resist :35 Muscle Strength LLE 5 ROM full resist :35 Transfers assist x 1 :35 Ambulation in room :35 Balance steady :35 Bathing Assistance none [id number]:15 Eating Assistance none 81-85-505488:15 Dressing Assistance none 30-81-716690:15 Toileting Assistance none :15 Transfer Assistance none :15 Decline Slf Care/Mob no :15 Phys Cond Stable yes :15 Nutrition normal :35 Diet regular :35 Oral Cavity moist and intact :35 Teeth dentures :35 Dental Hygiene good :35 Abdomen Appearance flat :35 Abdomen soft :35 Bowel Sounds present :35 NG Tube no :35 Feeding Tube none :35 Wallace no :35 Cont Bladder Irr no :35 Ostomy no :35 Stool diarrhea :35 Urination normal :35 Urine Clarity clear :35 Urine Color yellow [id number]:35 Quality sym/unlabored :35 Cough non-productive :35 Secretions no :35 Breath Sounds RUL clear :35 Breath Sounds RML clear :35 Breath Sounds RLL clear :35 Breath Sounds LASHELL clear :35 Breath Sounds LLL clear :35 Airway natural :35 Chest Tube no :35 Oxygen no :47 C-PAP no :35 BI-PAP no :35 Temp >100.4 no :35 Temp <96.8 no :35 Chills with rigors no :35 HR > 90bpm no :35 Respirations > 20 no :35 Systolic <90 no :35 headache stiff neck no :35 Rapid Resp no :35 VAD Type rosa-cath :05 VAD Location L chest : VAD Site Info discontinued Comment: access removed :05 VAD Site Appearance WNL :05 VAD Site Color clear :05 VAD Site Patent yes :05 VAD Dressing Changed yes :05 VAD Dressing Type gauze :05 Nursing Note Discharge instructions reviewed with PT. Discussed need to have colon rechecked in 5 years. Monitor for anyabd pain or rectal bleeding and to notify if experiences these. pt verbalized understanding of all instructions, all questions answered. pac flushed with ns then heplock flush, access removed. pt escorted off unit per w/c. Care car to escort home. 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 Hospital discharge instructions Discharge Date/Time 02/18/2015 13:03 Accompanied By merlyn/care car Dismissal Condition good Disposition on DC home Valuables yes Valuable Type billfold/purse Valuables Returned T patient DC Inst/Educ Give yes Exit Care Educ Given yes Med/Side Effects Rev yes DC Med Rec Rev yes PNE Vac none Flu Vac 2014 Tetanus Vac unsure Diet Explained yes Follow up appt call for appointment Follow Up Appt D/T prn
[2017-12-29] MEDS ORDERED: hydrOXYzine (VISTARIL) 25 MG CAP PO ONE (00:30)
[2017-12-29] MEDS ORDERED: LORATADINE (CLARITIN) 10 MG TAB PO ONE (00:30)
[2017-12-29] MEDS ORDERED: raNItidine 50 MG/2 ML INJ (ZANTAC) IM/IV SCH (00:30)
--- OUTSIDE RECORDS SUMMARY | 2017-12-29 00:30 | XMS REPORT | Clinical Summary ---
Author Author Admin, QIE Organization [facility] Address Unknown Phone Unavailable Allergies, Adverse Reactions, Alerts Allergy Name Reaction Description Start Date Severity Status Provider VANCOMYCIN Critical Active Harinder Hernandez DO LEVAQUIN stomach upset, diarrhea, and itching Critical Active Harinder Hernandez DO AITHROMYCIN itch Moderate Active Harinder Hernandez DO NEOSPORIN Critical Active Harinder Hernandez DO TRAMADOL HCL Critical Active Harinder eHrnandez DO REQUIP Critical Active Harinder Hernandez DO [...] of hip region Dysphagia 787.20 Active Harinder Hernandze DO Dysphagia , unspecified Hx of ischemic [...] Harinder Hernandez DO Insomnia ICD-780.52 Inactive Harinder W David DO Raynaud's syndrome [...] + D3 TABLET CALCIUM CARBONATE-VITAMIN D TABS 21013304589 Active Meenu Alejo LPN Active SPIRONOLACTONE 25 MG ORAL TABLET 1 tablet by mouth daily SPIRONOLACTONE 72064405832 No Longer Active Jeri Nieto Active PREDNISONE 20 MG ORAL TABLET 2 tablets by mouth today, then 1 tablet by mouth days 2-3 PREDNISONE 17293885147 No Longer Active Jeri Nieto Active NITROSTAT 0.4 MG SUBLINGUAL TABLET SUBLINGUAL 1 tab SL q5min PRN chest pain NITROGLYCERIN 92549590496 Active Meenu Alejo LPN Active THEOPHYLLINE ER 300 MG ORAL TABLET EXTENDED RELEASE 12 HOUR 1 po BID THEOPHYLLINE 88706062508 Active Kortney Mccain Active POTASSIUM CHLORIDE ER 20 MEQ ORAL TABLET EXTENDED RELEASE 1 po q day POTASSIUM CHLORIDE 00944308185 Active Kortney Mccain Active POTASSIUM CHLORIDE 20 MEQ ORAL PACKET 1 tab po q day POTASSIUM CHLORIDE 84317103701 No Longer Active Kortney Mccain Active POTASSIUM CHLORIDE ER 10 MEQ ORAL CAPSULE EXTENDED RELEASE 1 capsule BID 2016 POTASSIUM CHLORIDE 48252177168 No Longer Active Kortney Mccain Active LASIX 20 MG ORAL TABLET 1 tablet by mouth every morning FUROSEMIDE 85037256417 No Longer Active Kortney Mccain Active FLUOXETINE HCL 10 MG ORAL CAPSULE 1 po qd for depression/anxiety FLUOXETINE HCL 89840806676 Active Meenu Alejo LPN Active VOLTAREN 1 % TRANSDERMAL GEL apply q 6-8 hour to left arm as needed for pain DICLOFENAC SODIUM 12473953725 Active Kortney Mccain Active ALBUTEROL SULFATE (2.5 MG/3ML) 0.083% INHALATION NEBULIZATION SOLUTION 1 vial neb q 4hrs for severe asthma. imperative to have this agent ALBUTEROL SULFATE 99335966957 Active Ciera Pimentel Active NIFEDIAC CC 30 MG ORAL TABLET EXTENDED RELEASE 24 HOUR 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 NIFEDIPINE 46699754219 Active Kortney Mccain Active AMLODIPINE BESYLATE 5 MG ORAL TABLET 1 tablet by mouth daily 2016 AMLODIPINE BESYLATE 68957121858 No Longer Active aHrinder Hernandez DO Active TOPAMAX 25 MG ORAL TABLET 1 tab po BID TOPIRAMATE 46726936555 Active Kortney Mccain Active FLUTICASONE PROPIONATE 50 MCG/ACT NASAL SUSPENSION 2 sprays per nostril daily PRN Allergies FLUTICASONE PROPIONATE 87133409620 Active Meenu Alejo LPN Active NIFEDIPINE ER 30 MG ORAL TABLET EXTENDED RELEASE 24 HOUR 1 daily NIFEDIPINE 46012854513 No Longer Active Harinder Hernandez DO Active FLOVENT HFA 110 MCG/ACT INHALATION AEROSOL 2 puffs inhaled b.i.d. FLUTICASONE PROPIONATE HFA 90489857862 Active Harinder Hernandez DO Active EPIPEN 2-BRUNA 0.3 MG/0.3ML INJECTION SOLUTION AUTO-INJECTOR 1 INJ NEEDED EPINEPHRINE 98517548484 Active Meenu Alejo LPN Active PREDNISONE 20 MG ORAL TABLET 1 tab twice daily for 3 day, then one daily for three days PREDNISONE 78557542156 No Longer Active Harinder Hernandez DO Active PREDNISONE 20 MG ORAL TABLET 1 tablet twice daily for 2 days, then 1 tablet once daily for 2 days PREDNISONE 15033161518 No Longer Active Harinder Hernandez DO Active ASMANEX 120 METERED DOSES 220 MCG/INH INHALATION AEROSOL POWDER BREATH ACTIVATED 2 puffs orally twice daily MOMETASONE FUROATE 27405654731 Active Jeri Sosa LPN Active TOPIRAMATE 25 MG ORAL TABLET 1 tab po BID TOPIRAMATE 07652182896 No Longer Active Nettie Newberry APRN Active AMLODIPINE BESYLATE 5 MG ORAL TABLET Take 1 tab po daily AMLODIPINE BESYLATE 10491868433 No Longer Active Nettie Newberry APRN Active MECLIZINE HCL 25 MG ORAL TABLET 1 tablet three times daily for 3 days, then 1/ 2 tab three times daily for 3 days. MECLIZINE HCL 09685634106 No Longer Active Nettie Newberry APRN Active AMITRIPTYLINE HCL 25 MG ORAL TABLET 1 q hs prn AMITRIPTYLINE HCL 97955232689 No Longer Active Nettie Newberry APRN Active DILAUDID 2 MG ORAL TABLET Take 1/2 tab po every 4 hours as needed for pain HYDROMORPHONE HCL 99329011022 No Longer Active Nettie Newberry APRN Active CLOPIDOGREL BISULFATE 75 MG ORAL TABLET 1 tab by mouth once daily CLOPIDOGREL BISULFATE 91680619708 Active Meenu Alejo LPN Active ATORVASTATIN CALCIUM 10 MG ORAL TABLET 1 at bedtime ATORVASTATIN CALCIUM 35866913476 Active Kortney Mccain Active LOVASTATIN 40 MG ORAL TABLET Take 1 tab po every hs LOVASTATIN 83758230816 No Longer Active Harinder Hernandez DO Active PREDNISONE 20 MG ORAL TABLET 2 tabs daily for 4 days, 1 tab daily for 4 days, 1/2 tab daily for 4 days PREDNISONE 75933511844 No Longer Active Harinder Hernandez DO Active LEVAQUIN 500 MG ORAL TABLET Take 1 tab po daily x 8 days LEVOFLOXACIN 80135882837 No Longer Active Harinder Hernandez DO Active VENTOLIN HFA 108 (90 Base) MCG/ACT INHALATION AEROSOL SOLUTION 2 -4 puffs four times a day PRN ALBUTEROL SULFATE 59448008214 No Longer Active Jeri Sosa LPN Active ACEBUTOLOL HCL 200 MG ORAL CAPSULE 1 cap in the morning and 2 caps in the evening ACEBUTOLOL HCL 69394677358 No Longer Active Harinder Hernandez DO Active CEFDINIR 300 MG ORAL CAPSULE take 1 cap po bid x 10 days CEFDINIR 23952184910 No Longer Active Harinder Hernandez DO Active LOVASTATIN 40 MG ORAL TABLET 1 pill by mouth nightly for cholesterol LOVASTATIN 73467712241 No Longer Active Nettie Newberry APRN Active NITROSTAT 0.4 MG SUBLINGUAL TABLET SUBLINGUAL 1 tab under tongueas needed for chest pain ( may take 3 total, 5 min apart, then call 911) NITROGLYCERIN 42593433864 No Longer Active Nettie Newberry APRN Active POTASSIUM CHLORIDE ER 10 MEQ ORAL CAPSULE EXTENDED RELEASE 1 capsule by mouth daily POTASSIUM CHLORIDE 16406537618 No Longer Active Nettie Newberry APRN Active TESSALON PERLES 100 MG ORAL CAPSULE 1 to 2 tablets by mouth 3 times daily as needed for cough BENZONATATE 28877231414 No Longer Active Nettie Newberry APRN Active PREDNISONE 20 MG ORAL TABLET 2 po qd x 5 days PREDNISONE 03470076894 No Longer Active Jae Morgan MD Active AZITHROMYCIN 250 MG ORAL TABLET 2 po qd x 1 day, then 1 po qd x 4 days 12/30 AZITHROMYCIN 43214473687 No Longer Active Jae Morgan MD Active PREDNISONE 20 MG ORAL TABLET 1 tab twice daily for 3 day, then one daily for three days PREDNISONE 46265892217 No Longer Active Jae Morgan MD Active SINGULAIR 10 MG ORAL TABLET 1 pill by mouth every evening for breathing. 2014 MONTELUKAST SODIUM 00147319742 Active Meenu Alejo LPN Active TYLENOL 325 MG ORAL TABLET 3 by mouth q4h as needed ACETAMINOPHEN 36918733579 Active Harinder Hernandez DO Active POTASSIUM CHLORIDE ER 10 MEQ ORAL TABLET EXTENDED RELEASE take 1 tab po daily POTASSIUM CHLORIDE 05964326127 No Longer Active Harinder Hernandez DO Active PREDNISONE 20 MG ORAL TABLET 1 TID x 2 days, then 1 BID x 3 days, then 1 Daily x 3 days, then stop PREDNISONE 19000881011 No Longer Active Jillina Fradankl MAHENDRA Active LEVAQUIN 500 MG ORAL TABLET 1 tablet by mouth daily LEVOFLOXACIN 70718413983 No Longer Active Jillina Frazell COMMODITY BU[employer]ER Active NEURONTIN 300 MG ORAL CAPSULE 1 cap by mouth three times daily for restless leg GABAPENTIN 63777222078 No Longer Active Harinder Hernandez DO Active BENZONATATE 100 MG ORAL CAPSULE 1 cap po TID PRN BENZONATATE 86846904520 No Longer Active Harinder Hernandez DO Active MONTELUKAST SODIUM 10 MG ORAL TABLET 1 tab po in the evening 2014 MONTELUKAST SODIUM 96270935784 No Longer Active Harinder Hernandez DO Active MUPIROCIN 2 % EXTERNAL OINTMENT apply to affected area BID x 14 days MUPIROCIN 66040763546 No Longer Active Harinder Hernandez DO Active TYLENOL EXTRA STRENGTH 500 MG ORAL TABLET as needed ACETAMINOPHEN 01017038375 No Longer Active Harinder Hernandez DO Active PREDNISONE 10 MG ORAL TABLET 1 tab po daily PREDNISONE 02785215751 No Longer Active Harinder Hernandez DO Active PREDNISONE 20 MG ORAL TABLET 2 tabs daily for 4 days, 1 tab daily for 4 days, 1/2 tab daily for 4 days PREDNISONE 50896622513 No Longer Active Harinder Hernandez DO Active AZITHROMYCIN 250 MG ORAL TABLET 2 po qd x 1 day, then 1 po qd x 4 days 04/06 AZITHROMYCIN 47497343923 No Longer Active Harinder Hernandez DO Active PREDNISONE 20 MG ORAL TABLET 3 tabs today, then 1 tab twice daily for 3 day, then one daily for three days PREDNISONE 92075070088 No Longer Active Harinder Hernandez DO Active NIFEDIAC CC 30 MG ORAL TABLET EXTENDED RELEASE 24 HOUR 1 tablet daily for raynaud's syndrome NIFEDIPINE 34654377443 No Longer Active Tawnya Pardo MA Active AMBIEN 10 MG ORAL TABLET 1/2 tab by mouth at bedtime as needed for sleep 2013 ZOLPIDEM TARTRATE 93983847205 Active Meenu Alejo LPN Active CLONAZEPAM 1 MG ORAL TABLET 1 tablet at bedtime for insomnia and restless legs CLONAZEPAM 77855665420 Active Harinder Hernandez DO Active CLONAZEPAM 0.5 MG ORAL TABLET 1 tab po daily CLONAZEPAM 26126688351 No Longer Active Harinder Hernandez DO Active PREDNISONE 10 MG ORAL TABLET 1 tablet daily for COPD PREDNISONE 59971482240 Active Kortney Mccain Active PROAIR HFA 108 (90 Base) MCG/ACT INHALATION AEROSOL SOLUTION 2 puffs four times a day as needed ALBUTEROL SULFATE 85213545058 Active Harinder Hernandez DO Active FLOVENT HFA 110 MCG/ACT INHALATION AEROSOL 2 puffs inhaled b.i.d. FLUTICASONE PROPIONATE HFA 22154057847 Active Kortney Mccain Active ACIPHEX 20 MG ORAL TABLET DELAYED RELEASE 1 tab po daily RABEPRAZOLE SODIUM 50523916068 Active Meenu Alejo LPN Active CLONAZEPAM 0.5 MG ORAL TABLET 1 tab po daily CLONAZEPAM 0.5 MG ORAL TABLET 280819 CLONAZEPAM Inactive PREDNISONE 20 MG ORAL TABLET 3 tabs today, then 1 tab twice daily for 3 day, then one daily for three days PREDNISONE 20 MG ORAL TABLET 261542 PREDNISONE Inactive PREDNISONE 20 MG ORAL TABLET 2 tabs daily for 4 days, 1 tab daily for 4 days, 1/2 tab daily for 4 days PREDNISONE 20 MG ORAL TABLET 437705 PREDNISONE Inactive PREDNISONE 10 MG ORAL TABLET 1 tab po daily PREDNISONE 10 MG ORAL TABLET 761662 PREDNISONE Inactive TYLENOL EXTRA STRENGTH 500 MG ORAL TABLET as needed TYLENOL EXTRA STRENGTH 500 MG ORAL TABLET 326466 ACETAMINOPHEN Inactive MUPIROCIN 2 % EXTERNAL OINTMENT apply to affected area BID x 14 days MUPIROCIN 2 % EXTERNAL OINTMENT 770607 MUPIROCIN Inactive MONTELUKAST SODIUM 10 MG ORAL TABLET 1 tab po in the evening 2014 MONTELUKAST SODIUM 10 MG ORAL TABLET 155182 MONTELUKAST SODIUM Inactive BENZONATATE 100 MG ORAL CAPSULE 1 cap po TID PRN BENZONATATE 100 MG ORAL CAPSULE 619066 BENZONATATE Inactive NEURONTIN 300 MG ORAL CAPSULE 1 cap by mouth three times daily for restless leg NEURONTIN 300 MG ORAL CAPSULE 449529 GABAPENTIN Inactive LEVAQUIN 500 MG ORAL TABLET 1 tablet by mouth daily LEVAQUIN 500 MG ORAL TABLET 692552 LEVOFLOXACIN Inactive PREDNISONE 20 MG ORAL TABLET 1 TID x 2 days, then 1 BID x 3 days, then 1 Daily x 3 days, then stop PREDNISONE 20 MG ORAL TABLET 792735 PREDNISONE Inactive POTASSIUM CHLORIDE ER 10 MEQ ORAL TABLET EXTENDED RELEASE take 1 tab po daily POTASSIUM CHLORIDE ER 10 MEQ ORAL TABLET EXTENDED RELEASE POTASSIUM CHLORIDE Inactive PREDNISONE 20 MG ORAL TABLET 1 tab twice daily for 3 day, then one daily for three days PREDNISONE 20 MG ORAL TABLET 822746 PREDNISONE Inactive TESSALON PERLES 100 MG ORAL CAPSULE 1 to 2 tablets by mouth 3 times daily as needed for cough TESSALON PERLES 100 MG ORAL CAPSULE 383766 BENZONATATE Inactive POTASSIUM CHLORIDE ER 10 MEQ ORAL CAPSULE EXTENDED RELEASE 1 capsule by mouth daily POTASSIUM CHLORIDE ER 10 MEQ ORAL CAPSULE EXTENDED RELEASE POTASSIUM CHLORIDE Inactive NITROSTAT 0.4 MG SUBLINGUAL TABLET SUBLINGUAL 1 tab under tongueas needed for chest pain ( november take 3 total, 5 min apart, then call 911) NITROSTAT 0.4 MG SUBLINGUAL TABLET SUBLINGUAL 542179 NITROGLYCERIN Inactive LOVASTATIN 40 MG ORAL TABLET 1 pill by mouth nightly for cholesterol LOVASTATIN 40 MG ORAL TABLET 569478 LOVASTATIN Inactive CEFDINIR 300 MG ORAL CAPSULE take 1 cap po bid x 10 days CEFDINIR 300 MG ORAL CAPSULE 801228 CEFDINIR Inactive ACEBUTOLOL HCL 200 MG ORAL CAPSULE 1 cap in the morning and 2 caps in the evening ACEBUTOLOL HCL 200 MG ORAL CAPSULE 094265 ACEBUTOLOL HCL Inactive VENTOLIN HFA 108 (90 Base) MCG/ACT INHALATION AEROSOL SOLUTION 2 -4 puffs four times a day PRN VENTOLIN HFA 108 (90 Base) MCG/ ACT INHALATION AEROSOL SOLUTION ALBUTEROL SULFATE Inactive LEVAQUIN 500 MG ORAL TABLET Take 1 tab po daily x 8 days LEVAQUIN 500 MG ORAL TABLET 689068 LEVOFLOXACIN Inactive PREDNISONE 20 MG ORAL TABLET 2 tabs daily for 4 days, 1 tab daily for 4 days, 1/2 tab daily for 4 days PREDNISONE 20 MG ORAL TABLET 045096 PREDNISONE Inactive LOVASTATIN 40 MG ORAL TABLET Take 1 tab po every hs LOVASTATIN 40 MG ORAL TABLET 877451 LOVASTATIN Inactive DILAUDID 2 MG ORAL TABLET Take 1/2 tab po every 4 hours as needed for pain DILAUDID 2 MG ORAL TABLET 880543 HYDROMORPHONE HCL Inactive AMITRIPTYLINE HCL 25 MG ORAL TABLET 1 q hs prn AMITRIPTYLINE HCL 25 MG ORAL TABLET 535640 AMITRIPTYLINE HCL Inactive MECLIZINE HCL 25 MG ORAL TABLET 1 tablet three times daily for 3 days, then 1/ 2 tab three times daily for 3 days. MECLIZINE HCL 25 MG ORAL TABLET 705780 MECLIZINE HCL Inactive AMLODIPINE BESYLATE 5 MG ORAL TABLET Take 1 tab po daily AMLODIPINE BESYLATE 5 MG ORAL TABLET 887897 AMLODIPINE BESYLATE Inactive TOPIRAMATE 25 MG ORAL TABLET 1 tab po BID TOPIRAMATE 25 MG ORAL TABLET 194634 TOPIRAMATE Inactive PREDNISONE 20 MG ORAL TABLET 1 tablet twice daily for 2 days, then 1 tablet once daily for 2 days PREDNISONE 20 MG ORAL TABLET 843346 PREDNISONE Inactive PREDNISONE 20 MG ORAL TABLET 1 tab twice daily for 3 day, then one daily for three days PREDNISONE 20 MG ORAL TABLET 524979 PREDNISONE Inactive NIFEDIPINE ER 30 MG ORAL TABLET EXTENDED RELEASE 24 HOUR 1 daily NIFEDIPINE ER 30 MG ORAL TABLET EXTENDED RELEASE 24 HOUR NIFEDIPINE Inactive AMLODIPINE BESYLATE 5 MG ORAL TABLET 1 tablet by mouth daily 2016 AMLODIPINE BESYLATE 5 MG ORAL TABLET 880717 AMLODIPINE BESYLATE Inactive LASIX 20 MG ORAL TABLET 1 tablet by mouth every morning LASIX 20 MG ORAL TABLET 216725 FUROSEMIDE Inactive POTASSIUM CHLORIDE ER 10 MEQ ORAL CAPSULE EXTENDED RELEASE 1 capsule BID 2016 POTASSIUM CHLORIDE ER 10 MEQ ORAL CAPSULE EXTENDED RELEASE POTASSIUM CHLORIDE Inactive POTASSIUM CHLORIDE 20 MEQ ORAL PACKET 1 tab po q day POTASSIUM CHLORIDE 20 MEQ ORAL PACKET 7774163 POTASSIUM CHLORIDE Inactive PREDNISONE 20 MG ORAL TABLET 2 tablets by mouth today, then 1 tablet by mouth days 2-3 PREDNISONE 20 MG ORAL TABLET 401838 PREDNISONE Inactive SPIRONOLACTONE 25 MG ORAL TABLET 1 tablet by mouth daily SPIRONOLACTONE 25 MG ORAL TABLET 268149 SPIRONOLACTONE Inactive AZITHROMYCIN 250 MG ORAL TABLET 2 po qd x 1 day, then 1 po qd x 4 days 04/06 AZITHROMYCIN 250 MG ORAL TABLET 472769 AZITHROMYCIN Inactive AZITHROMYCIN 250 MG ORAL TABLET 2 po qd x 1 day, then 1 po qd x 4 days 12/30 AZITHROMYCIN 250 MG ORAL TABLET 546620 AZITHROMYCIN Inactive PREDNISONE 20 MG ORAL TABLET 2 po qd x 5 days PREDNISONE 20 MG ORAL TABLET 894853 PREDNISONE Inactive Vital Signs Date Name Value [...] Panel - Chemistry sodium, serum 140 mmol/L 740-510 4659/07/13 potassium, serum 3.2 mmol/L 3.5-5.2 chloride, serum 103 mmol/L 98-107 carbon dioxide, venous blood 26.9 mmol/L 21.0-32.0 blood glucose 93 mg/dL 65-110 calcium, serum 9.2 mg/dL 8.5-10.1 urea nitrogen, blood 13 mg/dL 7-18 creatinine, serum 0.84 mg/dL 0.60-1.30 sodium, serum 140 mmol/L 863-502 7874/08/21 potassium, serum 3.8 mmol/L 3.5-5.2 chloride, serum [...] ... - Chemistry sodium, serum 141 mmol/L 093-164 6927/08/07 carbon dioxide, venous blood 34.0 mmol/L 21.0-32.0 [...] 1.40 mg/dL 0.00-1.00 cholesterol, serum 192 mg/dL 680-512 8695/10/19 triglyceride, serum, fasting 71 mg/dL 30-200 HDL cholesterol, serum 72 mg/dL 32-60 LDL cholesterol, serum 106 mg/dL 0-130 Lab Report: Rapid Strep - Lab Microbial identification kit, rapid strep method Negative Negative Lab Report: THEOPHYLLINE - Toxicology theophylline level, serum 3.1 ug/mL 10.0-20.0 Encounters Code Encounter Date Provider Facility CPT-88410 Level 4 Est. Patient 10:17:51 LINE FIXER Harinder Cr [facility] CPT-80495 Level 3 Est. Patient 12:36:15 LINE FIXER Harinder Cr [facility] CPT-26643 Level 3 Est. Patient 15:14:45 LINE FIXER Harinder Hernandez [facility] CPT-48058 Level 4 Est. Patient 14:45:25 CDT Harinder Cr [facility] CPT-80380 Level 4 Est. Patient 09:15:13 CDT Harinder Cr [facility] CPT-43547 Level 3 Est. Patient 11:51:58 CDT Harinder Cr [facility] CPT-13030 Level 3 Est. Patient 11:30:05 CDT Harinder Cr [facility] CPT-52758 Level 4 Est. Patient 10:19:23 CDT Harinder Cr [facility] CPT-21732 Level 3 Est. Patient 09:58:58 CDT Harinder Hernandez [facility] CPT-61742 Level 3 Est. Patient 12:37:21 CDT Harinder Hernandez [facility] CPT-25269 Level 3 Est. Patient 18:37:17 CDT Harinder Cr David [facility] CPT-17624 Level 4 Est. Patient 11:15:54 CDT Nettieog Newberry APRN [facility] CPT-94064 Level 3 Est. Patient 16:42:24 CDT Harinder Cr David [facility] CPT-51522 Level 3 Est. Patient 15:03:36 CDT Harinder Hernandez [facility] CPT-67952 Level 3 Est. Patient 15:03:20 CDT Harinder Hernandez [facility] CPT-16091 Level 3 Est. Patient 12:14:34 CDT Harinder Hernandez [facility] CPT-59834 Level 3 Est. Patient 13:47:15 CDT Harinder Cr David [facility] CPT-03568 Level 3 Est. Patient 14:08:24 CDT Harinder Hernandez [facility] CPT-31308 Level 3 Est. Patient 10:07:15 CDT Harinder Cr David [facility] CPT-45056 Level 3 Est. Patient 10:06:59 CDT Harinder Hernandez [facility] CPT-88256 Level 3 Est. Patient 15:53:29 CDT Jae Morgan MD [facility] CPT-90675 Level 3 Est. Patient 17:19:04 CDT Harinder Cr [facility] CPT-49599 Level 3 Est. Patient 11:13:01 CDT Harinder Cr [facility] CPT-38463 Level 3 Est. Patient 09:03:58 CDT Harinder Cr [facility] CPT-93514 Level 3 Est. Patient 14:46:45 LINE FIXER Harinder Hernandez [facility] CPT-36178 Level 3 Est. Patient 09:35:49 LINE FIXER Harinder Hernandez [facility] CPT-80156 Level 3 Est. Patient 09:29:37 LINE FIXER Harinder Hernandez [facility] CPT-23772 Level 3 Est. Patient 15:51:07 CDT Harinder Hernandez [facility] CPT-54959 Level 3 Est. Patient 18:13:13 CDT Harinder Hernandez [facility] CPT-81830 Level 3 Est. Patient 10:44:19 CDT Harinder Hernandez [facility] CPT-11162 Level 4 Est. Patient 10:07:19 LINE FIXER Harinder Hernandez [facility] CPT-47150 Level 3 Est. Patient 15:59:32 LINE FIXER Harinder Hernandez [facility] Procedures Code Procedure Name Date Entry Date Standard Description CPT-34487 Bone Density - XRAY USE ONLY 14:43:42 CDT CPT-G0009 Administration of Pneumococcal Vaccine 10:33:25 LINE FIXER CPT-63494 Pneumovax 23 Injection Injectable 25 MCG/0.5ML 10:33:25 LINE FIXER CPT-75268 First Vx - Ix admin for Medicare patients 10:33:25 LINE FIXER CPT-45265 Fluzone Quadrivalent Intramuscular Suspension 0.5 ML 10: 33:25 LINE FIXER CPT-Cryo Cryotherapy 10:17:51 LINE FIXER CPT-G0438 Initial Annual Wellness Exam 10:08:59 LINE FIXER CPT-42934 Abd compl w upright - XRAY USE ONLY 14:48:09 CDT 02/18 CPT-68779 Port a cath flush 13:46:05 CDT CPT-20428 Hip, complete, 2-3 views - XRAY USE ONLY 10:28:40 CDT CPT-07823 BMP - LAB USE ONLY 16:45:09 LINE FIXER CPT-10093 Port a cath flush 12:00:13 LINE FIXER CPT-TCMM Transitional Care Mgmt-Moderate 11:20:16 LINE FIXER CPT-71232 First Vx - Ix admin for Medicare patients 17:35:15 CDT CPT-93635 Fluzone Preservative Free Intramuscular Suspension 17:35 :15 CDT CPT-95573 Microalbumin - LAB USE ONLY 11:52:05 CDT CPT-TCMM Transitional Care Mgmt-Moderate 11:33:57 CDT CPT-42094 No Charge Offi Visit 14:11:29 CDT CPT-77575 Magnesium - LAB USE ONLY 10:45:44 CDT CPT-89275 Lipid - LAB USE ONLY 10:45:44 CDT CPT-27936 CBC - LAB USE ONLY 10:45:44 CDT CPT-87442 Venipuncture Draw Fee 10:45:43 CDT CPT-68023 Venipuncture Draw Fee 18:21:27 CDT CPT-JTINJ Asp/Joint Injection 18:38:04 CDT CPT-97158 Immunization Each Additional Inj 17:38:04 CDT CPT-72710 Immunization Single Admin 17:38:04 CDT CPT-36192 Prevnar 13 17:38:04 CDT CPT-80060 Fluzone Quadrivalent preservative free (>=3yrs.) 17:38: 04 CDT CPT-55450 No Charge Offi Visit 11:14:03 CDT CPT-70183 Chest 2V Frontal and Lat 14:00:18 CDT CPT-OV Office Visit 16:10:28 CDT CPT-JTINJ Asp/Joint Injection 09:03:57 CDT CPT-Cryo Cryotherapy 09:35:49 LINE FIXER CPT-JTINJ Asp/Joint Injection 09:34:45 LINE FIXER CPT-J2930 Solu Medrol 125 mg (Methyl Prednisolone Sodium Succinate) 20:37:27 CDT CPT-55194 Abx/Therapy Injection 20:37:27 CDT CPT-19056 Port a cath flush 08:15:51 CDT CPT-93522 Port a cath flush 09:54:16 CDT CPT-66433 Port a cath flush 09:38:02 CDT CPT-83272 Port a cath flush 11:00:27 LINE FIXER
--- OUTSIDE RECORDS SUMMARY | 2017-12-29 00:31 | XMS REPORT | Clinical Summary ---
Author Author Admin, QIE Organization [facility] Address Unknown Phone Unavailable Allergies, Adverse Reactions, [...] Harinder Hernandez Colon cancer screening ICD-V76.51 Inactive Harindre Hernandez DO Screening for malignant neoplasm, colon [...] 2 puffs orally twice daily MOMETASONE FUROATE [id number] Active Jeri Sosa RPT,RMA Active NIFEDIPINE ER 30 MG ORAL [id number] 1 daily NIFEDIPINE 87164379379 Active Tawnya Pardo MA Active TOPIRAMATE 25 MG TABS 1 tab po BID TOPIRAMATE 72007305193 No Longer Active Nettie Newberry APRN Active AMLODIPINE BESYLATE 5 MG ORAL TABS Take 1 tab po daily AMLODIPINE BESYLATE 03194060786 No Longer Active Nettie Newberry APRN Active MECLIZINE HCL 25 MG TAB 1 tablet three times daily for 3 days, then 1/2 tab three times daily for 3 days. MECLIZINE HCL 65110341996 No Longer Active Nettie Newberry APRN Active AMITRIPTYLINE HCL 25 MG ORAL TABS 1 q hs prn AMITRIPTYLINE HCL 42019863967 No Longer Active Nettie Newberry APRN Active DILAUDID 2 MG ORAL TABS Take 1/2 tab po every 4 hours as needed for pain 2014 HYDROMORPHONE HCL 54231492166 No Longer Active Nettie Newberry APRN Active CLOPIDOGREL BISULFATE 75 MG ORAL TABS 1 tab by mouth once daily CLOPIDOGREL BISULFATE 89173091820 Active Tawnya Pardo MA Active ATORVASTATIN CALCIUM 10 MG ORAL TABS 1 at bedtime ATORVASTATIN CALCIUM 95659585540 Active Tawnya Pardo MA Active LOVASTATIN 40 MG ORAL TABS Take 1 tab po every hs LOVASTATIN 78763180237 No Longer Active Harinder Hernandez DO Active PREDNISONE 20 MG TAB 2 tabs daily for 4 days, 1 tab daily for 4 days, 1/2 tab daily for 4 days PREDNISONE 40601934030 No Longer Active Harinder Hernandez DO Active LEVAQUIN 500 MG ORAL TABS Take 1 tab po daily x 8 days LEVOFLOXACIN 45535470940 No Longer Active Harinder Hernandez DO Active VENTOLIN HFA 108 (90 BASE) MCG/ACT AERS 2 -4 puffs four times a day PRN 2013 ALBUTEROL SULFATE 91842199213 No Longer Active Jeri Sosa RPT,RMA Active ACEBUTOLOL HCL 200 MG CAPS 1 cap in the morning and 2 caps in the evening ACEBUTOLOL HCL 58313744376 No Longer Active Harinder Hernandez DO Active CEFDINIR 300 MG ORAL CAPS take 1 cap po bid x 10 days CEFDINIR 26837212199 No Longer Active Harinder Hernandez DO Active LOVASTATIN 40 MG TABS 1 pill by mouth nightly for cholesterol LOVASTATIN 78293679464 No Longer Active Nettie Newberry MAHENDRA Active NITROSTAT 0.4 MG SUBL 1 tab under tongueas needed for chest pain ( may take 3 total, 5 min apart, then call 911) NITROGLYCERIN 79065167200 No Longer Active Nettieog Newberry APRN Active POTASSIUM CHLORIDE CR 10 MEQ CPCR 1 capsule by mouth daily 02/14 POTASSIUM CHLORIDE 63613584236 No Longer Active Nettie Newberry MAHENDRA Active TESSALON PERLES 100 MG CAP 1 to 2 tablets by mouth 3 times daily as needed for cough BENZONATATE 85871973512 No Longer Active Nettieog Newberry APRN Active THEOPHYLLINE ER 200 MG ORAL [id number] Take 1 tab every 12 hours THEOPHYLLINE 93341380887 Active Tawnya Pardo MA Active PREDNISONE 20 MG TAB 2 po qd x 5 days PREDNISONE 24561827376 No Longer Active Jae Morgan MD Active AZITHROMYCIN 250 MG TABS 2 po qd x 1 day, then 1 po qd x 4 days AZITHROMYCIN 53300597385 No Longer Active Jae Morgan MD Active PREDNISONE 20 MG TAB 1 tab twice daily for 3 day, then one daily for three days PREDNISONE 33917172347 No Longer Active Jae Morgan MD Active SINGULAIR 10 MG TABS 1 pill by mouth every evening for breathing. MONTELUKAST SODIUM 32858911731 Active Tawnya Pardo MA Active TYLENOL 325 MG TAB 3 by mouth q4h as needed ACETAMINOPHEN 09375951587 Active Harinder Hernandez DO Active POTASSIUM CHLORIDE ER 10 MEQ CR-TABS take 1 tab po daily POTASSIUM CHLORIDE 04619325095 No Longer Active Harinder Hernandez DO Active PREDNISONE 20 MG TAB 1 TID x 2 days, then 1 BID x 3 days, then 1 Daily x 3 days, then stop PREDNISONE 71390579636 No Longer Active Jillina Frazell [employer] Active LEVAQUIN 500 MG TAB 1 tablet by mouth daily LEVOFLOXACIN 07820512648 No Longer Active Jillina Frazell [employer]ING [employer]ATION [employer]ATE Active NEURONTIN 300 MG CAP 1 cap by mouth three times daily for restless leg 06/22 GABAPENTIN 41364332903 No Longer Active Harinder Hernandez DO Active BENZONATATE 100 MG CAPS 1 cap po TID PRN BENZONATATE 21246232496 No Longer Active Harinder Hernandez DO Active MONTELUKAST SODIUM 10 MG TABS 1 tab po in the evening MONTELUKAST SODIUM 73216600598 No Longer Active Harinder Hernandez DO Active MUPIROCIN 2 % OINT apply to affected area BID x 14 days MUPIROCIN 33860872223 No Longer Active Harinder Hernandez DO Active TYLENOL EXTRA STRENGTH 500 MG TABS as needed ACETAMINOPHEN 95311949587 No Longer Active Harinder Hernandez DO Active PREDNISONE 10 MG TABS 1 tab po daily PREDNISONE 80244175489 No Longer Active Harinder Hernandez DO Active PREDNISONE 20 MG TAB 2 tabs daily for 4 days, 1 tab daily for 4 days, 1/2 tab daily for 4 days PREDNISONE 21408688200 No Longer Active Harinder Hernandez DO Active AZITHROMYCIN 250 MG TABS 2 po qd x 1 day, then 1 po qd x 4 days AZITHROMYCIN 21864923664 No Longer Active Harinder Hernandez DO Active PREDNISONE 20 MG TAB 3 tabs today, then 1 tab twice daily for 3 day, then one daily for three days PREDNISONE 82550598049 No Longer Active Harinder Hernandez DO Active NIFEDIAC CC 30 MG [id number] 1 tablet daily for raynaud's syndrome NIFEDIPINE 22610863875 No Longer Active Tawnya Pardo MA Active AMBIEN 10 MG TAB 1/2 tab by mouth at bedtime as needed for sleep ZOLPIDEM TARTRATE 76493557242 Active Harinder Hernandez DO Active CLONAZEPAM 1 MG TABS 1 tablet at bedtime for insomnia and restless legs 09/14 CLONAZEPAM 51047736320 Active Tawnya Pardo MA Active CLONAZEPAM 0.5 MG TABS 1 tab po daily CLONAZEPAM 59309525386 No Longer Active Harinder Hernandez DO Active PREDNISONE 10 MG TAB 1 tablet daily for COPD PREDNISONE 63142977453 Active Tawnya Pardo MA Active PROAIR HFA 108 (90 BASE) MCG/ACT AERS 2 puffs four times a day as needed 2012 ALBUTEROL SULFATE 56818429790 Active Tawnya Pardo MA Active FLOVENT HFA 110 MCG/ACT AERO 2 puffs inhaled b.i.d. FLUTICASONE PROPIONATE HFA 03421610212 Active Tawnya Pardo MA Active EPIPEN 0.3 MG/0.3ML URIEL DIRECTED EPINEPHRINE Active Jeri Sosa RPT,RMA Active ACIPHEX 20 MG TBEC 1 tab po daily RABEPRAZOLE SODIUM 84001828888 Active Tawnya Pardo MA Active CLONAZEPAM 0.5 MG TABS 1 tab po daily CLONAZEPAM 0.5 MG TABS 328083 CLONAZEPAM Inactive PREDNISONE 20 MG TAB 3 tabs today, then 1 tab twice daily for 3 day, then one daily for three days PREDNISONE 20 MG TAB 463509 PREDNISONE Inactive PREDNISONE 20 MG TAB 2 tabs daily for 4 days, 1 tab daily for 4 days, 1/2 tab daily for 4 days PREDNISONE 20 MG TAB 125696 PREDNISONE Inactive PREDNISONE 10 MG TABS 1 tab po daily PREDNISONE 10 MG TABS 617639 PREDNISONE Inactive TYLENOL EXTRA STRENGTH 500 MG TABS as needed TYLENOL EXTRA STRENGTH 500 MG TABS 786784 ACETAMINOPHEN Inactive MUPIROCIN 2 % OINT apply to affected area BID x 14 days MUPIROCIN 2 % OINT 507800 MUPIROCIN Inactive MONTELUKAST SODIUM 10 MG TABS 1 tab po in the evening MONTELUKAST SODIUM 10 MG TABS 20010818 MONTELUKAST SODIUM Inactive BENZONATATE 100 MG CAPS 1 cap po TID PRN BENZONATATE 100 MG CAPS 638615 BENZONATATE Inactive NEURONTIN 300 MG CAP 1 cap by mouth three times daily for restless leg 06/22 NEURONTIN 300 MG CAP 092967 GABAPENTIN Inactive LEVAQUIN 500 MG TAB 1 tablet by mouth daily LEVAQUIN 500 MG TAB 406090 LEVOFLOXACIN Inactive PREDNISONE 20 MG TAB 1 TID x 2 days, then 1 BID x 3 days, then 1 Daily x 3 days, then stop PREDNISONE 20 MG TAB 863360 PREDNISONE Inactive POTASSIUM CHLORIDE ER 10 MEQ CR-TABS take 1 tab po daily POTASSIUM CHLORIDE ER 10 MEQ CR-TABS POTASSIUM CHLORIDE Inactive PREDNISONE 20 MG TAB 1 tab twice daily for 3 day, then one daily for three days PREDNISONE 20 MG TAB 061843 PREDNISONE Inactive TESSALON PERLES 100 MG CAP 1 to 2 tablets by mouth 3 times daily as needed for cough TESSALON PERLES 100 MG CAP 762618 BENZONATATE Inactive POTASSIUM CHLORIDE CR 10 MEQ [...] nightly for cholesterol LOVASTATIN 40 MG TABS 307234 LOVASTATIN Inactive CEFDINIR 300 MG ORAL CAPS take 1 cap po bid x 10 days CEFDINIR 300 MG ORAL CAPS 801748 CEFDINIR Inactive ACEBUTOLOL HCL 200 MG CAPS 1 cap in the morning and 2 caps in the evening ACEBUTOLOL HCL 200 MG CAPS 813118 ACEBUTOLOL HCL Inactive VENTOLIN HFA 108 (90 BASE) MCG/ACT AERS 2 -4 puffs four times a day PRN 2013 VENTOLIN HFA 108 (90 BASE) MCG/ACT AERS ALBUTEROL SULFATE Inactive LEVAQUIN 500 MG ORAL TABS Take 1 tab po daily x 8 days LEVAQUIN 500 MG ORAL TABS 467356 LEVOFLOXACIN Inactive PREDNISONE 20 MG TAB 2 tabs daily for 4 days, 1 tab daily for 4 days, 1/2 tab daily for 4 days PREDNISONE 20 MG TAB 219008 PREDNISONE Inactive LOVASTATIN 40 MG ORAL TABS Take 1 tab po every hs LOVASTATIN 40 MG ORAL TABS 263777 LOVASTATIN Inactive DILAUDID 2 MG ORAL TABS Take 1/2 tab po every 4 hours as needed for pain 2014 DILAUDID 2 MG ORAL TABS 642294 HYDROMORPHONE HCL Inactive AMITRIPTYLINE HCL 25 MG ORAL TABS 1 q hs prn AMITRIPTYLINE HCL 25 MG ORAL TABS 106638 AMITRIPTYLINE HCL Inactive MECLIZINE HCL 25 MG TAB 1 tablet three times daily for 3 days, then 1/2 tab three times daily for 3 days. MECLIZINE HCL 25 MG TAB 427197 MECLIZINE HCL Inactive AMLODIPINE BESYLATE 5 MG ORAL TABS Take 1 tab po daily AMLODIPINE BESYLATE 5 MG ORAL TABS 361564 AMLODIPINE BESYLATE Inactive TOPIRAMATE 25 MG TABS 1 tab po BID TOPIRAMATE 25 MG TABS 994715 TOPIRAMATE Inactive AZITHROMYCIN 250 MG TABS 2 po qd x 1 day, then 1 po qd x 4 days AZITHROMYCIN 250 MG TABS 8794471 AZITHROMYCIN Inactive AZITHROMYCIN 250 MG TABS 2 po qd x 1 day, then 1 po qd x 4 days AZITHROMYCIN 250 MG TABS 0898397 AZITHROMYCIN Inactive PREDNISONE 20 MG TAB 2 po qd x 5 days PREDNISONE 20 MG TAB 786755 PREDNISONE Inactive Vital Signs Date Name Value [...] Panel - Chemistry sodium, serum 138 mmol/L 781-084 5198/09/24 potassium, serum 3.5 mmol/L 3.5-5.2 chloride, serum [...] [phone] Encounters Code Encounter Date Provider Facility CPT-97718 Level 3 Est. Patient 18:37:[address] [facility] CPT-08082 Level 4 Est. Patient 11:15:54 CD[facility] Level 3 Est. Patient 16:42:[address] [facility] CPT-80167 Level 3 Est. Patient 15:03:36 CDT Harinder Hernandez [facility] CPT-92725 Level 3 Est. Patient 15:03:[address] [facility] CPT-33616 Level 3 Est. Patient 12:14:34 CDT Harinder Hernandez [facility] CPT-86365 Level 3 Est. Patient 13:47:15 CDT Harinder Hernandez [facility] CPT-86509 Level 3 Est. Patient 14:08:24 CDT Harinder Hernandez [facility] CPT-28455 Level 3 Est. Patient 10:07:15 CDT Harinder Cr [facility] CPT-34656 Level 3 Est. Patient 10:06:59 CDT Harinder Hernandez [facility] CPT-25541 Level 3 Est. Patient 15:53:29 CDT Jae Morgan MD [facility] CPT-09798 Level 3 Est. Patient 17:19:04 CDT Harinder Hernandez [facility] CPT-22810 Level 3 Est. Patient 11:13:01 CDT Harinder Hernandez [facility] CPT-02830 Level 3 Est. Patient 09:03:58 CDT Harinder Hernandez [facility] CPT-29778 Level 3 Est. Patient 14:46:45 HOME ADMINISTRATOR Harinder Hernandez [facility] CPT-38476 Level 3 Est. Patient 09:35:49 HOME ADMINISTRATOR Harinder Hernandez [facility] CPT-21420 Level 3 Est. Patient 09:29:37 HOME ADMINISTRATOR Harinder Hernandez [facility] CPT-43135 Level 3 Est. Patient 15:51:07 CDT Harinder Hernandez [facility] CPT-09959 Level 3 Est. Patient 18:13:13 CDT Harinder Cr [facility] CPT-49276 Level 3 Est. Patient 10:44:19 CDT Harinder Cr [facility] CPT-70426 Level 4 Est. Patient 10:07:19 HOME ADMINISTRATOR Harinder Hernandez [facility] CPT-38092 Level 3 Est. Patient 15:59:32 HOME ADMINISTRATOR Harinder Cr [facility] Procedures Code Procedure Name Date Entry Date Standard Description CPT-JTINJ Asp/Joint Injection 18:38:04 CDT CPT-97981 Immunization Each Additional Inj 17:38:04 CDT CPT-15480 Immunization Single Admin 17:38:04 CDT CPT-13021 Prevnar 13 17:38:04 CDT CPT-47953 Fluzone Quadrivalent preservative free (>=3yrs.) 17:38: 04 CDT CPT-15970 No Charge Offi Visit 11:14:03 CDT CPT-67969 Chest 2V Frontal and Lat 14:00:18 CDT CPT-OV Office Visit 16:10:28 CDT CPT-JTINJ Asp/Joint Injection 09:03:57 CDT CPT-Cryo Cryotherapy 09:35:49 HOME ADMINISTRATOR CPT-JTINJ Asp/Joint Injection 09:34:45 HOME ADMINISTRATOR CPT-J2930 Solu Medrol 125 mg (Methyl Prednisolone Sodium Succinate) 20:37:27 CDT CPT-75904 Abx/Therapy Injection 20:37:27 CDT CPT-91648 Port a cath flush 08:15:51 CDT CPT-60014 Port a cath flush 09:54:16 CDT CPT-12277 Port a cath flush 09:38:02 CDT CPT-06134 Port a cath flush 11:00:27 HOME ADMINISTRATOR
--- OUTSIDE RECORDS SUMMARY | 2017-12-29 00:31 | XMS REPORT ---
Author Author [facility] Medical Staff Organization [facility] Address [address], [place] [address] Phone [phone] Care Team Providers Care Jet Inspector Name Role Phone HARINDER HERNANDEZ DO PP [phone] HARINDER HERNANDEZ DO PP [phone] Summary purpose TRANSITION OF CARE AUTO GENERATION Chief Complaint and Reason for Visit Admit Diagnosis 1 PYLONETHRIIS FEVER Problem list No authorized problems tracked for continuity of care are available for this visit. Encounters The following conditions tracked for encounter diagnoses were recorded for this visit: Finding or Diagnosis Status Certainty Chronicity Onset *ABDOMINAL PAIN Active Medications Discharge Medications Status Medication Directions Current acebutolol 200 mg capsule 200 milligram (s) oral Twice a day 1 cap in am and 2 cap in pm Current Aciphex 20 mg tablet,delayed release 20 milligram (s) oral Daily Current amitriptyline 25 mg tablet 1 tab(s) oral oral As Needed for migraine Current epinephrine HCl 0.01 mg/mL injection syringe 0.3 milligram (s) injection inj As Needed for allergic reaction Current Ertapenem (INVANZ) 1 gm, Sodium Chloride 0.9 % (NORMAL SALINE) 100 ML 200 mL/hr injection Give IV Daily Current Flovent 110 mcg/actuation aerosol inhaler 2 puff(s) inhalation Twice a day Current Klonopin 0.5 mg tablet 1 tab(s) oral Bedtime daily Current MUPIROCIN 2 %: OINT.%28GM%29 1 applicator(s) topical Give TOP Twice a day Current Nifediac CC 30 mg tablet,extended release 1 tab(s) oral Daily Current prednisone 10 mg tablet 1 tab(s) oral Daily Current ProAir HFA 90 mcg/actuation aerosol inhaler 2 puff(s) inhl 4 xDaily As Needed for COPD Current Singulair 10 mg tablet 1 tab(s) oral Daily Current Severo-24 200 mg capsule,extended release 1 tab(s) oral Twice a day Current topiramate 25 mg tablet 1 tab(s) oral Twice a day Current Tylenol 325 mg tablet 3 tab(s) oral oral Q4 Hours As Needed for pain Current Ventolin HFA 90 mcg/actuation aerosol inhaler 2 puff(s) inhalation inhl 4 xDaily As Needed for COPD Allergies, adverse reactions, alerts Allergen Category Ingredient [...] Relevant diagnostic tests and/or laboratory data RESULTS [id number]:03:00 Progress Note PROGRESS NOTE 04/23/2015 14:03:25 S: Patient is in the hospital with community-acquired pneumonia. She has multiple drug allergies. She was switched to Invanz to cover for her pneumonia. She reports she is doing well. She is wanting to go home today. Reports her breathing is good. No pain. She is eating good. No other concerns. O: VITAL SIGNS:Temperature 97.9, pulse 96, blood pressure 107/58, respiratory rate 20, oxygen saturation is 100% on room air. GENERAL: The patient is alert and oriented in no acute distress. CARDIOVASCULAR: Regular rate and rhythm. LUNGS:Clear. ABDOMEN:Soft, nontender, nondistended. Positive bowel sounds. EXTREMITIES:No rash or edema. A: Community-acquired pneumonia. P: The patient is doing well, we will plan to discharge her to home today. She will be set up for Invanz IV to be done at [place] for the next 7 days. She will also follow up with Dr. Hernandez in the next 1 to 2 weeks. MD WALT Mcdonnell/tomasz 04/23/2015 14:03:25/04/23/2015 18:04:53 Clinic Code: cc: <[facility] [address] [place] [address]<END HEADER> [id number]:26:00 Progress Note PROGRESS NOTE 04/22/2015 13:26:16 S: Patient making progress, breathing easier. Decreased abdominal discomfort. Happy with her progress. O: VITAL SIGNS: Reviewed, with the patient is continuing to be afebrile. Temperature 97.5, pulse 78, blood pressure 97/56, respirations 18, and oximetry on room air 99%. GENERAL:Has an improved sense of well-being. HEENT: Cranial nerves are intact. CHEST:Clear. HEART: Regular rate and rhythm. ABDOMEN:Soft with some vague tenderness right abdomen, upper quadrant/flank. LABORATORY/X-RAY DATA: Chest x-ray this morning reveals the previously noted left basilar infiltrate partially clearing. There is no new laboratory work for review. A: Community-acquired pneumonia. P: 1.Transitioning from meropenem to ertapenem 1 gram IV daily. Of note is the patient has multiple antibiotic allergies, and thus a carbapenem only utilized. 2.Hope to see continued progress with discharge to home tomorrow likely if so. We will plan on outpatient infusion perhaps at a [place] facility (as that is where she resides). DO ABIOLA Tariq/jt1 13:26:16/04/22/2015 13:42:05 Clinic Code: cc: <[facility] [address] [place] [address]<END HEADER> [id number]:27:00 Progress Note PROGRESS NOTE 04/21/2015 08:27:56 S: The patient is feeling better, decreased abdominal pain. She is noting some discomfort and perhaps dry scabby changes to her nose (concerned about impetigo). No chest pain or shortness of air. She notes decreased abdominal discomfort, happy with her progress. O: VITAL SIGNS: Reviewed, with patient's the last temperature 98.5, pulse 80 to 87 range, blood pressure 92/48 and 102/56, respirations easy at 17. GENERAL: Patient at my examination appears to be in no acute distress, very much improved sense of well-being. HEENT: Cranial nerves are intact. CHEST: Clear. HEART: Regular rate and rhythm. ABDOMEN: Decreased tenderness through the left flank and costovertebral angle. Bowel sounds are physiologic. Abdominal sonogram yesterday was fairly noncontributory. CT of the abdomen and pelvis this morning is pending. LABORATORY: No new laboratory for review. A: Right abdominal pain with fever-exact etiology is elusive (though improving). P: 1. CT abdomen and pelvis. 2. Mupirocin ointment for her nasal symptoms. 3. Probiotics. 4. See orders. Harinder Hernandez DO [facility]/nv04/21/2015 08:27:56/04/21/2015 10:37:51 Clinic Code: [facility]: [facility] [address] [place] [address]<END HEADER> [id number]:11:00 Progress Note PROGRESS NOTE 04/20/2015 08:11:36 S: Patient this morning is feeling a little better though continues to have significant right upper quadrant and right flank pain. No chest pain or shortness of breath. Making progress generally she thinks though. O: VITAL SIGNS: Reviewed, with temperature 98.2, pulse 77, blood pressure 116/51, respirations 18, oximetry 98%. GENERAL: Appears to be a bit uncomfortable this morning. CHEST: Clear. HEART: Regular rate and rhythm. ABDOMEN: With tenderness seemingly especially in the right flank and CVA though some significant pain right upper quadrant. Left abdomen is benign. LABORATORY: No new lab this morning. Blood is revealing no growth at one day and her urine only shows less than 10,000 colonies per milligram of mixed gram-positive margy. A: Right abdominal pain-clinically seemed more pyelonephritis though now a greater right upper quadrant component. P: 1. Abdominal sonogram to evaluate the right abdomen to include gallbladder and kidney. 2. CMP this morning. 3. See orders. Harinder Hernandez DO [facility]/nv04/20/2015 08:11:36/04/20/2015 08:57:49 Clinic Code: 16309 cc: [facility] [address] [place] [address]<END HEADER> Routine Urinalysis [id number]:15:00 Result Normal Range Units Color YELLOW Clarity Cloudy Specific Freeman 1.015 1.003-1.035 pH 6.0 4.5-8.0 Glucose NEGATIVE Bilirubin NEGATIVE Ketones NEGATIVE Protein NEGATIVE Urobilinogen 0.2 0-0.2 E.U./dL Nitrites NEGATIVE Blood 3+ Leukocytes 1+ WBCs 10-20 RBCs 10-20 Squamous Epithelial 1+ Bacteria 2+ Blood Cultures [id number]:30:00 Blood Culture Plate Date and Time 04/19/2015 13:36 SourceBLOOD CULTURE REPORT NoGrowth at 1 day. Unless otherwise notified. Final report in 5 Days. Release Date/Time: 04/20/2015 08:05 [id number]:00 Blood Culture Plate Date and Time 04/19/2015 13:36 SourceBLOOD CULTURE REPORT NoGrowth at 1 day. Unless otherwise notified. Final report in 5 Days. Release Date/Time: 04/20/2015 08:06 Routine Cultures [id number]:28:00 Urine Culture Plate Date and Time 04/19/2015 13:28 SourceURINE CULTURE REPORT <10,000 colonies/ml Mixed Gram Pos Margy Culture Pending Release Date/Time: 04/20/2015 08:06 CULTURE REPORT 20,000 colonies/ml Mixed Gram Pos Margy Release Date/Time: 04/21/2015 09:52 Chemistry [id number]:35:00 Result Normal Range Units Sodium 138 134-145 mEq/l Potassium 3.5 3.5-5.1 mEq/l Chloride 102 98-107 mEq/l CO2 27.6 22-28 mEq/l Glucose 86 70-105 mg/dl BUN L 5 7-18 mg/dl Creatinine 0.90 0.6-1.0 mg/dl Calcium 8.4 8.4-10.2 mg/dl TP - Total Protein 7.0 6.0-8.3 g/dl Albumin L 3.0 3.5-5 g/dl Bilirubin - Total 0.7 0.1-1.0 mg/dl AST 24 10-42 IU/L ALT 24 12-65 IU/L ALP H 86 25-72 IU/L Osmolality L 272.2 280-300 mOsm/L Albumin/Globulin Ratio 0.8 0-8 Anion GAP 8.4 8-16 BUN/Creatinine Ratio L 5.6 10-20 Estimated GFR 64 >=60 mL/min/1.7 :25:00 Result Normal Range Units Sodium 137 134-145 mEq/l Potassium 3.6 3.5-5.1 mEq/l Chloride 101 98-107 mEq/l CO2 25.2 22-28 mEq/l Glucose 100 70-105 mg/dl BUN L 6 7-18 mg/dl Creatinine 0.88 0.6-1.0 mg/dl Calcium 8.7 8.4-10.2 mg/dl TP - Total Protein 7.5 6.0-8.3 g/dl Albumin 3.5 3.5-5 g/dl Bilirubin - Total 0.8 0.1-1.0 mg/dl AST 23 10-42 IU/L ALT 24 12-65 IU/L ALP H 101 25-72 IU/L Osmolality L 271.5 280-300 mOsm/L Albumin/Globulin Ratio 0.9 0-8 Anion GAP 10.8 8-16 BUN/Creatinine Ratio L 6.8 10-20 Estimated GFR 65 >=60 mL/min/1.7 Lactic Acid 1.1 0.4-2.0 mmol/L Hematology :25:00 Result Normal Range Units WBC 10.5 4.8-10.8 103/uL RBC L 3.7 4.2-5.4 106/uL HGB L 11.3 12.0-16.0 g/dl HCT L 34.2 36.9-47.0 % MCV 93.7 81-99 FL MCH 31.0 27-31 pg MCHC 33.0 33-37 g/dl RDW 14.3 11.5-15.5 % PLT 202 130-400 103/uL MPV 9.8 7.3-10.4 FL Neutro % H 71.8 40-70 % Lymph % 20.6 20-40 % Barton % 6.8 0-10.0 % Eos % 0.3 0-7.0 % Baso % 0.3 0-2 % Neutro # 7.5 1.5-7.5 103/uL Lymph # 2.2 0.9-4.0 103/uL Barton # 0.7 0-0.8 103/uL Eos # 0.0 0-0.6 103/uL Baso # 0.0 0-0.1 103/uL Body Fluid [id number]:15:00 Result Normal Range Units pH 6.0 4.5-8.0 Hematology - Other (Misc) [id number]:25:00 Result Normal Range Units Sed Rate H 65 0-30 Radiology Results [id number]:12:00 Chest X-Ray - 2 View PACs Image DATE OF EXAM: 2014 RAD 0300-CHEST XRAY 2 VIEW : RADIOLOGY REPORT DATE OF SERVICE: 04/22/15 HISTORY: Left lower lobe pneumonia CHEST 2 VIEWS 0840 HOURS Comparison is made with 04/19/2015. The minimal left basilar infiltrate noted on the prior study has partially cleared. The right lung is normal. Heart size and pulmonary vessels are normal. IMPRESSION: Partial clearing of left basilar pneumonia. MD BERENICE Muniz/nv04/22/2015 08:50:00 / 04/22/2015 09:50:28 cc:Dr. Harinder Hernandez This document has been electronically Signed by: On: DATE OF EXAM: 2014 RAD 0300-CHEST XRAY 2 VIEW : RADIOLOGY REPORT DATE OF SERVICE: 04/22/15 HISTORY: Left lower lobe pneumonia CHEST 2 VIEWS 0840 HOURS Comparison is made with 04/19/2015. The minimal left basilar infiltrate noted on the prior study has partially cleared. The right lung is normal. Heart size and pulmonary vessels are normal. IMPRESSION: Partial clearing of left basilar pneumonia. MD BERENICE Muniz/nv04/22/2015 08:50:00 / 04/22/2015 09:50:28 cc:Dr. Harinder Hernandez This document has been electronically Signed by: ADITYA NUÑEZ MD On: 20141:12P PYLONETHRIISFEVER Result Amended on 2015-04-22 at 13:12:39. Previous status was CT. PYLONETHRIISFEVER [id number]:31:00 CT ABD/PEL W CONTRAST PACs Image DATE OF EXAM: 2014 [id number] ABD/PELV W CONTRAST : RADIOLOGY REPORT DATE OF SERVICE: 04/21/15 HISTORY: Abdominal pain, vomiting, right flank pain, previous abnormal ultrasound with question of mild hydronephrosis. CT ABDOMEN AND PELVIS WITH CONTRAST 0800 HOURS Axial scans were obtained at 5 mm intervals following administration of oral and intravenous contrast. 100 mL Isovue-300 was utilized for intravenous enhancement. Comparison is made with the abdominal ultrasound study performed 04/20/2015. Scans through the lung bases reveal a small focal infiltrate posteriorly in the right lower lobe. The liver, spleen, pancreas, and adrenal glands are normal. The gallbladder is surgically absent (it was stated in error that a gallbladder was present on the abdominal ultrasound exam). The bile ducts are normal in caliber. Both kidneys are unobstructed with no masses or calculi. Mildly prominent right renal pelvis represents normal variation. The kidney excrete contrast in a normal fashion and the right ureter is well opacified. The abdominal aorta is normal in caliber. The abdominal and pelvic bowel loops are normal. There are no inflammatory changes. There is no ascites. The cul-de-sac is normal. There has been prior hysterectomy and appendectomy. The bladder is normal. IMPRESSION: Negative CT abdomen and pelvis status post cholecystectomy, appendectomy, and hysterectomy. No evidence of renal obstruction. MD BERENICE Muniz/nv04/21/2015 08:10:00 / 04/21/2015 08:59:51 cc:Dr. Harinder Hernandez This document has been electronically Signed by: On: DATE OF EXAM: 2014 [id number] ABD/PELV W CONTRAST : RADIOLOGY REPORT DATE OF SERVICE: 04/21/15 HISTORY: Abdominal pain, vomiting, right flank pain, previous abnormal ultrasound with question of mild hydronephrosis. CT ABDOMEN AND PELVIS WITH CONTRAST 0800 HOURS Axial scans were obtained at 5 mm intervals following administration of oral and intravenous contrast. 100 mL Isovue-300 was utilized for intravenous enhancement. Comparison is made with the abdominal ultrasound study performed 04/20/2015. Scans through the lung bases reveal a small focal infiltrate posteriorly in the right lower lobe. The liver, spleen, pancreas, and adrenal glands are normal. The gallbladder is surgically absent (it was stated in error that a gallbladder was present on the abdominal ultrasound exam). The bile ducts are normal in caliber. Both kidneys are unobstructed with no masses or calculi. Mildly prominent right renal pelvis represents normal variation. The kidney excrete contrast in a normal fashion and the right ureter is well opacified. The abdominal aorta is normal in caliber. The abdominal and pelvic bowel loops are normal. There are no inflammatory changes. There is no ascites. The cul-de-sac is normal. There has been prior hysterectomy and appendectomy. The bladder is normal. IMPRESSION: Negative CT abdomen and pelvis status post cholecystectomy, appendectomy, and hysterectomy. No evidence of renal obstruction. MD BERENICE Muniz/nv04/21/2015 08:10:00 / 04/21/2015 08:59:51 cc:Dr. Harinder Hernandez This document has been electronically Signed by: ADITYA NUÑEZ MD On: 2014 11:31A PYLONETHRIISFEVER Result Amended on 2015-04-21 at 11:31:33. Previous status was CT. PYLONETHRIISFEVER [id number]:32:00 ABD SONO COMPLETE PACs Image DATE OF EXAM: 2014 [id number] COMPLETE SONO : RADIOLOGY REPORT DATE OF SERVICE: 04/20/15 HISTORY: Right flank pain and right upper quadrant pain COMPLETE ABDOMINAL [id number] HOURS The liver, spleen, gallbladder, and bile ducts are normal. The pancreas is within normal limits. There are no renal masses or calculi. There is a mildly prominent right renal pelvis without significant intrarenal hydronephrosis. The left kidney is normal. The abdominal aorta shows mild atherosclerotic calcification with no evidence of aneurysm. The inferior vena cava is patent. There is no abdominal mass or ascites. IMPRESSION: Mildly prominent right renal pelvis. This is likely normal variation however low-grade hydronephrosis is not entirely excluded. If there is ongoing symptomatology, consider short interval followup study or retrograde examination. MD BERENICE Muniz/zeyad04/20/2015 10:46:00 / 04/20/2015 10:53:03 cc:Dr. Harinder Hernandez This document has been electronically Signed by: On: DATE OF EXAM: 2014 [id number] COMPLETE SONO : RADIOLOGY REPORT DATE OF SERVICE: 04/20/15 HISTORY: Right flank pain and right upper quadrant pain COMPLETE ABDOMINAL [id number] HOURS The liver, spleen, gallbladder, and bile ducts are normal. The pancreas is within normal limits. There are no renal masses or calculi. There is a mildly prominent right renal pelvis without significant intrarenal hydronephrosis. The left kidney is normal. The abdominal aorta shows mild atherosclerotic calcification with no evidence of aneurysm. The inferior vena cava is patent. There is no abdominal mass or ascites. IMPRESSION: Mildly prominent right renal pelvis. This is likely normal variation however low-grade hydronephrosis is not entirely excluded. If there is ongoing symptomatology, consider short interval followup study or retrograde examination. MD BERENICE Muniz/nv04/20/2015 10:46:00 / 04/20/2015 10:53:03 cc:Dr. Harinder Hernandez This document has been electronically Signed by: ADITYA NUÑEZ MD On: 2014 11:32A PYLONETHRIISFEVER Result Amended on 2015-04-20 at 11:32:41. Previous status was CT. PYLONETHRIISFEVER [id number]:28:00 Chest X-Ray - 2 View PACs Image DATE OF EXAM: 2014 RAD 0300-CHEST XRAY 2 VIEW : RADIOLOGY REPORT DATE OF SERVICE: 04/19/15 HISTORY: Febrile illness. CHEST 2 VIEWS 1310 HOURS Comparison is made with 04/19/2015. There is minimal patchy infiltrate in the left lung base. The lungs are otherwise clear. Heart size and pulmonary vessels are normal. Implanted threat monitoring analyst is noted in the chest wall. IMPRESSION: Left lower lobe infiltrate consistent with pneumonia. MD BERENICE Muniz/nv04/19/2015 13:34:00 / 04/19/2015 13:38:01 cc:Dr. Harinder Hernandez This document has been electronically Signed by: On: DATE OF EXAM: 2014 RAD 0300-CHEST XRAY 2 VIEW : RADIOLOGY REPORT DATE OF SERVICE: 04/19/15 HISTORY: Febrile illness. CHEST 2 VIEWS 1310 HOURS Comparison is made with 04/19/2015. There is minimal patchy infiltrate in the left lung base. The lungs are otherwise clear. Heart size and pulmonary vessels are normal. Implanted threat monitoring analyst is noted in the chest wall. IMPRESSION: Left lower lobe infiltrate consistent with pneumonia. MD BERENICE Muniz/nv04/19/2015 13:34:00 / 04/19/2015 13:38:01 cc:Dr. Harinder Hernandez This document has been electronically Signed by: ADITYA NUÑEZ MD On: 20142:28P PYLONETHRIISFEVER Result Amended on 2015-04-19 at 14:28:35. Previous status was CT. PYLONETHRIISFEVER [id number]:25:00 Result Normal Range Units MPV 9.8 7.3-10.4 FL History of procedures No procedures recorded for this patient visit. Functional status Functional Status Finding Observation Time Hearing Prob Loc none [id number]:30 Vision Problems yes :30 Vision Correct Dev glasses :30 Ambulation Asst Dev none :30 Range of Motion full :53 Muscle Strength RUE 5 ROM full resist :53 Muscle Strength RLE 5 ROM full resist :53 Muscle Strength LUE 5 ROM full resist [id number]:53 Muscle Strength LLE 5 ROM full resist [id number]:53 Transfers assist x 1 :53 Ambulation in room :53 Balance steady :53 Bathing Assistance none [id number]:30 Dressing Assistance none :30 Toileting Assistance none :30 Transfer Assistance none :30 Decline Slf Care/Mob no :30 Phys Cond Stable yes 54-59-181523:30 Nutrition normal :53 Diet regular 15-53-255086:53 Oral Cavity moist and intact :53 Teeth dentures :53 Dental Hygiene good :53 Abdomen Appearance flat :53 Abdomen soft :53 Bowel Sounds present :53 NG Tube no :53 Feeding Tube none :53 Wallace no :53 Cont Bladder Irr no :53 Ostomy no :53 Stool normal :53 Urination normal :53 Urine Clarity clear :53 Urine Color yellow :53 Quality sym/unlabored :53 Cough absent :53 Secretions no :30 Breath Sounds RUL clear :10 Breath Sounds RML clear :10 Breath Sounds RLL clear :10 Breath Sounds LASHELL clear :10 Breath Sounds LLL clear :10 Airway natural :53 Chest Tube no :53 Oxygen no :16 Oxygen Mask Type nasal cannula :16 Oxygen Flow Rate ra :02 C-PAP no :53 BI-PAP no :53 Temp >100.4 no :53 Temp <96.8 no :53 Chills with rigors no :53 HR > 90bpm no :53 Respirations > 20 no :53 Systolic <90 no :53 headache stiff neck no :53 WBC > 40988 no :53 WBC < 4000 no :53 Rapid Resp no :53 IV Site Location LFA :53 IV Type peripheral :53 IV Site Information existing :53 IV Site Start Attmpt 1 times :10 IV Site Alessio 20 :53 IV Site Appearance WNL :53 IV Site Color clear :53 IV Site Patent yes :53 Dressing Changed no (explain) Comment: clear dry intact :53 Dressing Type occlusive :53 Nursing Note Discharged to home, verbalized instructions. SL D/C'd and orders for Invanz faxed to [facility], Dose given prior to discharge. Family here for discharge instructions. Personal belongins sent wiht patient and she was escorted to family car by hosp staff. :30 Cognitive Status Finding Observation Time Oriented To Date 5 Yes :[address] 5 Yes :30 Name 3 Objects 3 Yes :30 Name Object in Rm 2 Yes :30 Recall 3 Objects 3 Yes :30 Repeats a Phrase 1 Yes : Follows Verbal Direc 3 Yes : Follows Written Dire 1 Yes : Write a Sentance 1 Yes : Draw an Object 1 Yes :30 Mini Mental Total 25 points :30 Less than 20 Phys not applicable :30 Learning Ability comprehends well :54 Neurological no :54 Psychological no :54 Physical no :54 Hearing no :54 Water Valve Repairer Needed no :54 Sign Language no :54 Emotional no :54 Vision yes :54 Laguage no :54 Financial no :54 Vital signs Type Value Date Respiration Rate 18breaths per minute :16 Pulse 101beats per minute :16 Oxygen Saturation 99% :16 BP Systolic 112mmHg :16 BP Diastolic 69mmHg :16 Temperature 97.6F :16 Height 64inches :57 Weight 119.7LB :56 Social history Type Value Smoking Status NEVER SMOKER Treatment Plan No treatment plan text is available for this visit. Hospital discharge instructions Valuables yes Valuable Type billfold/purse PNE Vac none Flu Vac 2014 Tetanus Vac 2011
--- OUTSIDE RECORDS SUMMARY | 2017-12-29 00:32 | XMS REPORT | Clinical Summary ---
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 NIFEDIPINE 05679586450 Active Harinder Hernandez DO Active AMLODIPINE BESYLATE 5 MG TABS 1 tablet by mouth daily AMLODIPINE BESYLATE 18589265445 No Longer Active Harinder Hernandez DO Active TOPAMAX 25 MG ORAL TABS 1 tab po BID TOPIRAMATE 56071872582 Active Kortney Mccain Active FLUTICASONE PROPIONATE 50 MCG/ACT SUSP 2 sprays per nostril daily PRN Allergies FLUTICASONE PROPIONATE 67124684435 Active Kortney Mccain Active NIFEDIPINE ER 30 MG ORAL [id number] 1 daily NIFEDIPINE 11180094183 No Longer Active Harinder Hernandez DO Active POTASSIUM CHLORIDE 20 MEQ ORAL PACK Take 1 tablet by mouth daily POTASSIUM CHLORIDE 84782179552 Prince Pimentel Active FLOVENT HFA 110 MCG/ACT AERO 2 puffs inhaled b.i.d. FLUTICASONE PROPIONATE HFA 10934999783 Active Harinder Hernandez DO Active POTASSIUM CHLORIDE CR 10 MEQ CPCR 1 capsule by mouth daily POTASSIUM CHLORIDE 42667761099 Active Harinder Hernandez DO Active EPIPEN 2-BRUNA 0.3 MG/0.3ML INJ SOAJ 1 INJ NEEDED EPINEPHRINE 24961241129 Active Harinder Hernandez DO Active PREDNISONE 20 MG TAB 1 tab twice daily for 3 day, then one daily for three days PREDNISONE 76138618382 No Longer Active Harinder Hernandez DO Active PREDNISONE 20 MG TAB 1 tablet twice daily for 2 days, then 1 tablet once daily for 2 days PREDNISONE 91857928019 No Longer Active Harinder Hernandez DO Active ASMANEX 120 METERED DOSES 220 MCG/INH INH AEPB 2 puffs orally twice daily MOMETASONE FUROATE 86788698532 Active Jeri Sosa RPT,RMA Active TOPIRAMATE 25 MG TABS 1 tab po BID TOPIRAMATE 88451264790 No Longer Active Nettie Newberry APRN Active AMLODIPINE BESYLATE 5 MG ORAL TABS Take 1 tab po daily AMLODIPINE BESYLATE 71680962089 No Longer Active Nettie Newberry APRN Active MECLIZINE HCL 25 MG TAB 1 tablet three times daily for 3 days, then 1/2 tab three times daily for 3 days. MECLIZINE HCL 05291206847 No Longer Active Nettie Newberry APRN Active AMITRIPTYLINE HCL 25 MG ORAL TABS 1 q hs prn AMITRIPTYLINE HCL 54644044573 No Longer Active Nettie Newberry APRN Active DILAUDID 2 MG ORAL TABS Take 1/2 tab po every 4 hours as needed for pain 2014 HYDROMORPHONE HCL 48683277700 No Longer Active Nettie Newberry APRN Active CLOPIDOGREL BISULFATE 75 MG ORAL TABS 1 tab by mouth once daily CLOPIDOGREL BISULFATE 74421047553 Active Harinder Hernandez DO Active ATORVASTATIN CALCIUM 10 MG ORAL TABS 1 at bedtime ATORVASTATIN CALCIUM 39697430195 Active Tawnya Pardo MA Active LOVASTATIN 40 MG ORAL TABS Take 1 tab po every hs LOVASTATIN 75664262138 No Longer Active Harinder W David DO Active PREDNISONE 20 MG TAB 2 tabs daily for 4 days, 1 tab daily for 4 days, 1/2 tab daily for 4 days PREDNISONE 11055882962 No Longer Active Harinder Hernandez DO Active LEVAQUIN 500 MG ORAL TABS Take 1 tab po daily x 8 days LEVOFLOXACIN 16217926646 No Longer Active Harinder Hernandez DO Active VENTOLIN HFA 108 (90 BASE) MCG/ACT AERS 2 -4 puffs four times a day PRN 2013 ALBUTEROL SULFATE 87215896441 No Longer Active Jeri Sosa RPT,RMA Active ACEBUTOLOL HCL 200 MG CAPS 1 cap in the morning and 2 caps in the evening ACEBUTOLOL HCL 34810243224 No Longer Active Harinder Hernandez DO Active CEFDINIR 300 MG ORAL CAPS take 1 cap po bid x 10 days CEFDINIR 46475022042 No Longer Active Harinder Hernandez DO Active LOVASTATIN 40 MG TABS 1 pill by mouth nightly for cholesterol LOVASTATIN 68570087741 No Longer Active Nettie Newberry APRN Active NITROSTAT 0.4 MG SUBL 1 tab under tongueas needed for chest pain ( may take 3 total, 5 min apart, then call 911) NITROGLYCERIN 29366689429 No Longer Active Nettie Newberry APRN Active POTASSIUM CHLORIDE CR 10 MEQ CPCR 1 capsule by mouth daily 02/14 POTASSIUM CHLORIDE 26195145964 No Longer Active Nettie Newberry APRN Active TESSALON PERLES 100 MG CAP 1 to 2 tablets by mouth 3 times daily as needed for cough BENZONATATE 78470967366 No Longer Active Nettie Newberry APRN Active THEOPHYLLINE ER 200 MG ORAL [id number] Take 1 tab every 12 hours THEOPHYLLINE 95294842198 Active Tawnya Pardo MA Active PREDNISONE 20 MG TAB 2 po qd x 5 days PREDNISONE 93302632699 No Longer Active Jae Morgan MD Active AZITHROMYCIN 250 MG TABS 2 po qd x 1 day, then 1 po qd x 4 days AZITHROMYCIN 36875219611 No Longer Active Jae Morgan MD Active PREDNISONE 20 MG TAB 1 tab twice daily for 3 day, then one daily for three days PREDNISONE 08892400473 No Longer Active Jae Morgan MD Active SINGULAIR 10 MG TABS 1 pill by mouth every evening for breathing. MONTELUKAST SODIUM 95836750296 Active Tawnya Pardo MA Active TYLENOL 325 MG TAB 3 by mouth q4h as needed ACETAMINOPHEN 68026094020 Active Harinder Hernandez DO Active POTASSIUM CHLORIDE ER 10 MEQ CR-TABS take 1 tab po daily POTASSIUM CHLORIDE 38004857400 No Longer Active Harinder Hernandez DO Active PREDNISONE 20 MG TAB 1 TID x 2 days, then 1 BID x 3 days, then 1 Daily x 3 days, then stop PREDNISONE 40438950114 No Longer Active Jillina Frazell [employer]GER [employer] Active LEVAQUIN 500 MG TAB 1 tablet by mouth daily LEVOFLOXACIN 86002556354 No Longer Active Jillina Frazell [employer] Active NEURONTIN 300 MG CAP 1 cap by mouth three times daily for restless leg 06/22 GABAPENTIN 61747214359 No Longer Active Harinder Hernandez DO Active BENZONATATE 100 MG CAPS 1 cap po TID PRN BENZONATATE 88215469479 No Longer Active Harinder Hernandez DO Active MONTELUKAST SODIUM 10 MG TABS 1 tab po in the evening MONTELUKAST SODIUM 16462743482 No Longer Active Harinder Hernandez DO Active MUPIROCIN 2 % OINT apply to affected area BID x 14 days MUPIROCIN 89452903536 No Longer Active Harinder Hernandez DO Active TYLENOL EXTRA STRENGTH 500 MG TABS as needed ACETAMINOPHEN 74397853675 No Longer Active Harinder Hernandez DO Active PREDNISONE 10 MG TABS 1 tab po daily PREDNISONE 07275019400 No Longer Active Harinder Hernandez DO Active PREDNISONE 20 MG TAB 2 tabs daily for 4 days, 1 tab daily for 4 days, 1/2 tab daily for 4 days PREDNISONE 04283545132 No Longer Active Harinedr Hernandez DO Active AZITHROMYCIN 250 MG TABS 2 po qd x 1 day, then 1 po qd x 4 days AZITHROMYCIN 64648622864 No Longer Active Harinder Hernandez DO Active PREDNISONE 20 MG TAB 3 tabs today, then 1 tab twice daily for 3 day, then one daily for three days PREDNISONE 11205044125 No Longer Active Harinder Hernandez DO Active NIFEDIAC CC 30 MG [id number] 1 tablet daily for raynaud's syndrome NIFEDIPINE 51671917820 No Longer Active Tawnya Pardo MA Active AMBIEN 10 MG TAB 1/2 tab by mouth at bedtime as needed for sleep ZOLPIDEM TARTRATE 00139237802 Active Ciera Pimentel Active CLONAZEPAM 1 MG TABS 1 tablet at bedtime for insomnia and restless legs 09/14 CLONAZEPAM 89995381095 Active Harinder Hernandez DO Active CLONAZEPAM 0.5 MG TABS 1 tab po daily CLONAZEPAM 65965285420 No Longer Active Harinder Hernandez DO Active PREDNISONE 10 MG TAB 1 tablet daily for COPD PREDNISONE 53389902923 Active Ciera Pimentel Active PROAIR HFA 108 (90 BASE) MCG/ACT AERS 2 puffs four times a day as needed 2012 ALBUTEROL SULFATE 03560260164 Active Harinder Hernandez DO Active FLOVENT HFA 110 MCG/ACT AERO 2 puffs inhaled b.i.d. FLUTICASONE PROPIONATE HFA 65506285733 Active Kortney Mccain Active ACIPHEX 20 MG TBEC 1 tab po daily RABEPRAZOLE SODIUM 39957569841 Active Kaylah Newberry Active CLONAZEPAM 0.5 MG TABS 1 tab po daily CLONAZEPAM 0.5 MG TABS 973539 CLONAZEPAM Inactive PREDNISONE 20 MG TAB 3 tabs today, then 1 tab twice daily for 3 day, then one daily for three days PREDNISONE 20 MG TAB 886563 PREDNISONE Inactive PREDNISONE 20 MG TAB 2 tabs daily for 4 days, 1 tab daily for 4 days, 1/2 tab daily for 4 days PREDNISONE 20 MG TAB 933905 PREDNISONE Inactive PREDNISONE 10 MG TABS 1 tab po daily PREDNISONE 10 MG TABS 123961 PREDNISONE Inactive TYLENOL EXTRA STRENGTH 500 MG TABS as needed TYLENOL EXTRA STRENGTH 500 MG TABS 197346 ACETAMINOPHEN Inactive MUPIROCIN 2 % OINT apply to affected area BID x 14 days MUPIROCIN 2 % OINT 845308 MUPIROCIN Inactive MONTELUKAST SODIUM 10 MG TABS 1 tab po in the evening MONTELUKAST SODIUM 10 MG TABS 695293 MONTELUKAST SODIUM Inactive BENZONATATE 100 MG CAPS 1 cap po TID PRN BENZONATATE 100 MG CAPS 598038 BENZONATATE Inactive NEURONTIN 300 MG CAP 1 cap by mouth three times daily for restless leg 06/22 NEURONTIN 300 MG CAP 453358 GABAPENTIN Inactive LEVAQUIN 500 MG TAB 1 tablet by mouth daily LEVAQUIN 500 MG TAB 146877 LEVOFLOXACIN Inactive PREDNISONE 20 MG TAB 1 TID x 2 days, then 1 BID x 3 days, then 1 Daily x 3 days, then stop PREDNISONE 20 MG TAB 235485 PREDNISONE Inactive POTASSIUM CHLORIDE ER 10 MEQ CR-TABS take 1 tab po daily POTASSIUM CHLORIDE ER 10 MEQ CR-TABS POTASSIUM CHLORIDE Inactive PREDNISONE 20 MG TAB 1 tab twice daily for 3 day, then one daily for three days PREDNISONE 20 MG TAB 360086 PREDNISONE Inactive TESSALON PERLES 100 MG CAP 1 to 2 tablets by mouth 3 times daily as needed for cough TESSALON PERLES 100 MG CAP 628095 BENZONATATE Inactive POTASSIUM CHLORIDE CR 10 MEQ CPCR 1 capsule by mouth daily 02/14 POTASSIUM CHLORIDE CR 10 MEQ CPCR POTASSIUM CHLORIDE Inactive NITROSTAT 0.4 MG SUBL 1 tab under tongueas needed for chest pain ( may take 3 total, 5 min apart, then call 911) NITROSTAT 0.4 MG SUBL 157850 NITROGLYCERIN Inactive LOVASTATIN 40 MG TABS 1 pill by mouth nightly for cholesterol LOVASTATIN 40 MG TABS 263886 LOVASTATIN Inactive CEFDINIR 300 MG ORAL CAPS take 1 cap po bid x 10 days CEFDINIR 300 MG ORAL CAPS 738905 CEFDINIR Inactive ACEBUTOLOL HCL 200 MG CAPS 1 cap in the morning and 2 caps in the evening ACEBUTOLOL HCL 200 MG CAPS 927617 ACEBUTOLOL HCL Inactive VENTOLIN HFA 108 (90 BASE) MCG/ACT AERS 2 -4 puffs four times a day PRN 2013 VENTOLIN HFA 108 (90 BASE) MCG/ACT AERS ALBUTEROL SULFATE Inactive LEVAQUIN 500 MG ORAL TABS Take 1 tab po daily x 8 days LEVAQUIN 500 MG ORAL TABS 164879 LEVOFLOXACIN Inactive PREDNISONE 20 MG TAB 2 tabs daily for 4 days, 1 tab daily for 4 days, 1/2 tab daily for 4 days PREDNISONE 20 MG TAB 523303 PREDNISONE Inactive LOVASTATIN 40 MG ORAL TABS Take 1 tab po every hs LOVASTATIN 40 MG ORAL TABS 567446 LOVASTATIN Inactive DILAUDID 2 MG ORAL TABS Take 1/2 tab po every 4 hours as needed for pain 2014 DILAUDID 2 MG ORAL TABS 229288 HYDROMORPHONE HCL Inactive AMITRIPTYLINE HCL 25 MG ORAL TABS 1 q hs prn AMITRIPTYLINE HCL 25 MG ORAL TABS 139420 AMITRIPTYLINE HCL Inactive MECLIZINE HCL 25 MG TAB 1 tablet three times daily for 3 days, then 1/2 tab three times daily for 3 days. MECLIZINE HCL 25 MG TAB 102912 MECLIZINE HCL Inactive AMLODIPINE BESYLATE 5 MG ORAL TABS Take 1 tab po daily AMLODIPINE BESYLATE 5 MG ORAL TABS 976116 AMLODIPINE BESYLATE Inactive TOPIRAMATE 25 MG TABS 1 tab po BID TOPIRAMATE 25 MG TABS 743885 TOPIRAMATE Inactive PREDNISONE 20 MG TAB 1 tablet twice daily for 2 days, then 1 tablet once daily for 2 days PREDNISONE 20 MG TAB 674916 PREDNISONE Inactive PREDNISONE 20 MG TAB 1 tab twice daily for 3 day, then one daily for three days PREDNISONE 20 MG TAB 270512 PREDNISONE Inactive NIFEDIPINE ER 30 MG ORAL [id number] 1 daily NIFEDIPINE ER 30 MG ORAL [id number] NIFEDIPINE Inactive AMLODIPINE BESYLATE 5 MG TABS 1 tablet by mouth daily AMLODIPINE BESYLATE 5 MG TABS 362159 AMLODIPINE BESYLATE Inactive AZITHROMYCIN 250 MG TABS 2 po qd x 1 day, then 1 po qd x 4 days AZITHROMYCIN 250 MG TABS 2883495 AZITHROMYCIN Inactive AZITHROMYCIN 250 MG TABS 2 po qd x 1 day, then 1 po qd x 4 days AZITHROMYCIN 250 MG TABS 5235173 AZITHROMYCIN Inactive PREDNISONE 20 MG TAB 2 po qd x 5 days PREDNISONE 20 MG TAB 106486 PREDNISONE Inactive Vital Signs Date Name Value [...] Panel - Chemistry sodium, serum 137 mmol/L 587-979 6106/01/03 potassium, serum 3.4 mmol/L 3.5-5.2 chloride, serum [...] 0.40 mg/dL 0.00-1.00 sodium, serum 142 mmol/L 578-394 0848/08/08 LDL cholesterol, serum 96 mg/dL 0-130 HDL [...] 10.0-20.0 Encounters Code Encounter Date Provider Facility CPT-72566 Level 3 Est. Patient 11:30:05 CDT Harinder Hernandez [facility] CPT-75048 Level 4 Est. Patient 10:19:23 CDT Harinder Hernandez [facility] CPT-98352 Level 3 Est. Patient 09:58:58 CDT Harinder Cr [place] CPT-93055 Level 3 Est. Patient 12:37:21 CDT Harinder Cr David [facility] CPT-70118 Level 3 Est. Patient 18:37:17 CDT Harinder Hernandez [facility] CPT-33591 Level 4 Est. Patient 11:15:54 CDT Nettie Newberry APRN [facility] CPT-65630 Level 3 Est. Patient 16:42:24 CDT Harinder Shaye David [facility] CPT-93009 Level 3 Est. Patient 15:03:36 CDT Harinder Hernandez [facility] CPT-27418 Level 3 Est. Patient 15:03:20 CDT Harinder Cr David [facility] CPT-56594 Level 3 Est. Patient 12:14:34 CDT Hrainder Hernandez [facility] CPT-25214 Level 3 Est. Patient 13:47:15 CDT Harinder Cr David [facility] CPT-14713 Level 3 Est. Patient 14:08:24 CDT Harinder Hernandez [facility] CPT-94117 Level 3 Est. Patient 10:07:15 CDT Harinder Hernandez [facility] CPT-17212 Level 3 Est. Patient 10:06:59 CDT Harinder Cr David [facility] CPT-32269 Level 3 Est. Patient 15:53:29 CDT Jae Morgan MD [facility] CPT-23836 Level 3 Est. Patient 17:19:04 CDT Harinder Hernandez [facility] CPT-91105 Level 3 Est. Patient 11:13:01 CDT Harinder Hernandez [facility] CPT-38802 Level 3 Est. Patient 09:03:58 CDT Harinder Hernandez [facility] CPT-82158 Level 3 Est. Patient 14:46:45 RESERVATIONS AGENT Harinder rC [facility] CPT-54465 Level 3 Est. Patient 09:35:49 RESERVATIONS AGENT Harinder Cr [place] CPT-35910 Level 3 Est. Patient 09:29:37 RESERVATIONS AGENT Harinder Hernandez [facility] CPT-04215 Level 3 Est. Patient 15:51:07 CDT Harinder Hernandez [facility] CPT-31768 Level 3 Est. Patient 18:13:13 CDT Harinder Hernandez [facility] CPT-10264 Level 3 Est. Patient 10:44:19 CDT Harinder Cr [facility] CPT-67878 Level 4 Est. Patient 10:07:19 RESERVATIONS AGENT Harinder Cr [place] CPT-05981 Level 3 Est. Patient 15:59:32 RESERVATIONS AGENT Harinder Cr [facility] Procedures Code Procedure Name Date Entry Date Standard Description CPT-86119 Hip, complete, 2-3 views - XRAY USE ONLY 10:28:40 CDT CPT-57658 BMP - LAB USE ONLY 16:45:09 RESERVATIONS AGENT CPT-81788 Port a cath flush 12:00:13 RESERVATIONS AGENT CPT-TCMM Transitional Care Mgmt-Moderate 11:20:16 RESERVATIONS AGENT CPT-08846 First Vx - Ix admin for Medicare patients 17:35:15 CDT CPT-60289 Fluzone Preservative Free Intramuscular Suspension 17:35 :15 CDT CPT-32760 Microalbumin - LAB USE ONLY 11:52:05 CDT CPT-TCMM Transitional Care Mgmt-Moderate 11:33:57 CDT CPT-85182 No Charge Offi Visit 14:11:29 CDT CPT-98363 Magnesium - LAB USE ONLY 10:45:44 CDT CPT-25029 Lipid - LAB USE ONLY 10:45:44 CDT CPT-59283 CBC - LAB USE ONLY 10:45:44 CDT CPT-01605 Venipuncture Draw Fee 10:45:43 CDT CPT-81611 Venipuncture Draw Fee 18:21:27 CDT CPT-JTINJ Asp/Joint Injection 18:38:04 CDT CPT-87227 Immunization Each Additional Inj 17:38:04 CDT CPT-68994 Immunization Single Admin 17:38:04 CDT CPT-75881 Prevnar 13 17:38:04 CDT CPT-97641 Fluzone Quadrivalent preservative free (>=3yrs.) 17:38: 04 CDT CPT-77486 No Charge Offi Visit 11:14:03 CDT CPT-12316 Chest 2V Frontal and Lat 14:00:18 CDT CPT-OV Office Visit 16:10:28 CDT CPT-JTINJ Asp/Joint Injection 09:03:57 CDT CPT-Cryo Cryotherapy 09:35:49 RESERVATIONS AGENT CPT-JTINJ Asp/Joint Injection 09:34:45 RESERVATIONS AGENT CPT-J2930 Solu Medrol 125 mg (Methyl Prednisolone Sodium Succinate) 20:37:27 CDT CPT-70300 Abx/Therapy Injection 20:37:27 CDT CPT-08709 Port a cath flush 08:15:51 CDT CPT-61741 Port a cath flush 09:54:16 CDT [facility]-71391 Port a cath flush 09:38:02 CDT [facility]-52943 Port a cath flush 11:00:27 RESERVATIONS AGENT
[2017-12-29 00:33] LABS: ABG BASE EXCESS -1.3 MMOL/L (-2.5-2.5); ABG OXYGEN SATURATION 100 % (94-100); ABG PCO2 43 MMHG (35-45); ABG PH 7.36 (7.37-7.43); ABG PO2 239 MMHG (79-93)
--- OUTSIDE RECORDS SUMMARY | 2017-12-29 00:33 | XMS REPORT | Clinical Summary ---
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 NIFEDIPINE 37421818068 Active Harinder Hernandez DO Active AMLODIPINE BESYLATE 5 MG TABS 1 tablet by mouth daily AMLODIPINE BESYLATE 79745713568 No Longer Active Harinder Hernandez DO Active TOPAMAX 25 MG ORAL TABS 1 tab po BID TOPIRAMATE 50759846293 Active Kortney Mccain Active FLUTICASONE PROPIONATE 50 MCG/ACT SUSP 2 sprays per nostril daily PRN Allergies FLUTICASONE PROPIONATE 70987928059 Active Kortney Mccain Active NIFEDIPINE ER 30 MG ORAL [id number] 1 daily NIFEDIPINE 97509097844 No Longer Active Harinder Hernandez DO Active POTASSIUM CHLORIDE 20 MEQ ORAL PACK Take 1 tablet by mouth daily POTASSIUM CHLORIDE 66907268651 Prince Pimentel Active FLOVENT HFA 110 MCG/ACT AERO 2 puffs inhaled b.i.d. FLUTICASONE PROPIONATE HFA 53695649014 Active Harinder Hernandez DO Active POTASSIUM CHLORIDE CR 10 MEQ CPCR 1 capsule by mouth daily POTASSIUM CHLORIDE 08569674579 Active Harinder W David DO Active EPIPEN 2-BRUNA 0.3 MG/0.3ML INJ SOAJ 1 INJ NEEDED EPINEPHRINE 38287725651 Active Harinder Hernandez DO Active PREDNISONE 20 MG TAB 1 tab twice daily for 3 day, then one daily for three days PREDNISONE 95900082969 No Longer Active Harinder Hernandez DO Active PREDNISONE 20 MG TAB 1 tablet twice daily for 2 days, then 1 tablet once daily for 2 days PREDNISONE 70750487818 No Longer Active Harinder Hernandez DO Active ASMANEX 120 METERED DOSES 220 MCG/INH INH AEPB 2 puffs orally twice daily MOMETASONE FUROATE 40275638323 Active Jeri Sosa RPT,RMA Active TOPIRAMATE 25 MG TABS 1 tab po BID TOPIRAMATE 86010161565 No Longer Active Nettie Newberry APRN Active AMLODIPINE BESYLATE 5 MG ORAL TABS Take 1 tab po daily AMLODIPINE BESYLATE 19883367994 No Longer Active Nettie Newberry APRN Active MECLIZINE HCL 25 MG TAB 1 tablet three times daily for 3 days, then 1/2 tab three times daily for 3 days. MECLIZINE HCL 37856879724 No Longer Active Nettie Newberry APRN Active AMITRIPTYLINE HCL 25 MG ORAL TABS 1 q hs prn AMITRIPTYLINE HCL 29342718342 No Longer Active Nettie Newberry APRN Active DILAUDID 2 MG ORAL TABS Take 1/2 tab po every 4 hours as needed for pain 2014 HYDROMORPHONE HCL 01235933368 No Longer Active Nettie Newberry APRN Active CLOPIDOGREL BISULFATE 75 MG ORAL TABS 1 tab by mouth once daily CLOPIDOGREL BISULFATE 83413246064 Active Harinder Hernandez DO Active ATORVASTATIN CALCIUM 10 MG ORAL TABS 1 at bedtime ATORVASTATIN CALCIUM 29333036883 Active Tawnya Pardo MA Active LOVASTATIN 40 MG ORAL TABS Take 1 tab po every hs LOVASTATIN 61071324476 No Longer Active Harinder Hernandez DO Active PREDNISONE 20 MG TAB 2 tabs daily for 4 days, 1 tab daily for 4 days, 1/2 tab daily for 4 days PREDNISONE 21308391129 No Longer Active Harinder Hernandez DO Active LEVAQUIN 500 MG ORAL TABS Take 1 tab po daily x 8 days LEVOFLOXACIN 49950234529 No Longer Active Harinder Hernandez DO Active VENTOLIN HFA 108 (90 BASE) MCG/ACT AERS 2 -4 puffs four times a day PRN 2013 ALBUTEROL SULFATE 94104751353 No Longer Active Jeri Sosa RPT,RMA Active ACEBUTOLOL HCL 200 MG CAPS 1 cap in the morning and 2 caps in the evening ACEBUTOLOL HCL 81384337531 No Longer Active Harinder Hernandez DO Active CEFDINIR 300 MG ORAL CAPS take 1 cap po bid x 10 days CEFDINIR 70549343736 No Longer Active Harinder Hernandez DO Active LOVASTATIN 40 MG TABS 1 pill by mouth nightly for cholesterol LOVASTATIN 46719028192 No Longer Active Nettie Newberry APRN Active NITROSTAT 0.4 MG SUBL 1 tab under tongueas needed for chest pain ( may take 3 total, 5 min apart, then call 911) NITROGLYCERIN 51828505631 No Longer Active Nettie Newberry APRN Active POTASSIUM CHLORIDE CR 10 MEQ CPCR 1 capsule by mouth daily 02/14 POTASSIUM CHLORIDE 50813153181 No Longer Active Nettie Newberry APRN Active TESSALON PERLES 100 MG CAP 1 to 2 tablets by mouth 3 times daily as needed for cough BENZONATATE 80618758680 No Longer Active Nettie Newberry APRN Active THEOPHYLLINE ER 200 MG ORAL [id number] Take 1 tab every 12 hours THEOPHYLLINE 60448309885 Active Tawnya Pardo MA Active PREDNISONE 20 MG TAB 2 po qd x 5 days PREDNISONE 61031632797 No Longer Active Jae Morgan MD Active AZITHROMYCIN 250 MG TABS 2 po qd x 1 day, then 1 po qd x 4 days AZITHROMYCIN 71395169839 No Longer Active Jae Morgan MD Active PREDNISONE 20 MG TAB 1 tab twice daily for 3 day, then one daily for three days PREDNISONE 53116999438 No Longer Active Jae Morgan MD Active SINGULAIR 10 MG TABS 1 pill by mouth every evening for breathing. 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 NEURONTIN 300 MG CAP 1 cap by mouth three times daily for restless leg 06/22 GABAPENTIN 64584696969 No Longer Active Harinder Hernandez DO Active BENZONATATE 100 MG CAPS 1 cap po TID PRN BENZONATATE 19171299228 No Longer Active Harinder Hernandez DO Active MONTELUKAST SODIUM 10 MG TABS 1 tab po in the evening MONTELUKAST SODIUM 18789476827 No Longer Active Harinder Hernandez DO Active MUPIROCIN 2 % OINT apply to affected area BID x 14 days MUPIROCIN 10027213350 No Longer Active Harinder Hernandez DO Active TYLENOL EXTRA STRENGTH 500 MG TABS as needed ACETAMINOPHEN 21499142004 No Longer Active Harinder Hernandez DO Active PREDNISONE 10 MG TABS 1 tab po daily PREDNISONE 01105472323 No Longer Active Harinder Hernandez DO Active PREDNISONE 20 MG TAB 2 tabs daily for 4 days, 1 tab daily for 4 days, 1/2 tab daily for 4 days PREDNISONE 19432257266 No Longer Active Harinder Hernandez DO Active AZITHROMYCIN 250 MG TABS 2 po qd x 1 day, then 1 po qd x 4 days AZITHROMYCIN 37590999008 No Longer Active Harinder Hernandez DO Active PREDNISONE 20 MG TAB 3 tabs today, then 1 tab twice daily for 3 day, then one daily for three days PREDNISONE 85098844886 No Longer Active Harinder Hernandez DO Active NIFEDIAC CC 30 MG [id number] 1 tablet daily for raynaud's syndrome NIFEDIPINE 32441276806 No Longer Active Tawnya Pardo MA Active AMBIEN 10 MG TAB 1/2 tab by mouth at bedtime as needed for sleep ZOLPIDEM TARTRATE 04828922258 Active Ciera Pimentel Active CLONAZEPAM 1 MG TABS 1 tablet at bedtime for insomnia and restless legs 09/14 CLONAZEPAM 40479162980 Active Harinder Hernandez DO Active CLONAZEPAM 0.5 MG TABS 1 tab po daily CLONAZEPAM 70756197845 No Longer Active Harinder Hernandez DO Active PREDNISONE 10 MG TAB 1 tablet daily for COPD PREDNISONE 12286881328 Active Ciera Pimentel Active PROAIR HFA 108 (90 BASE) MCG/ACT AERS 2 puffs four times a day as needed 2012 ALBUTEROL SULFATE 28884757800 Active Harinder Hernandez DO Active FLOVENT HFA 110 MCG/ACT AERO 2 puffs inhaled b.i.d. FLUTICASONE PROPIONATE HFA 17365060012 Active Kortney Mccain Active ACIPHEX 20 MG TBEC 1 tab po daily RABEPRAZOLE SODIUM 94333260387 Active Kaylah Newberry Active CLONAZEPAM 0.5 MG TABS 1 tab po daily CLONAZEPAM 0.5 MG TABS 406323 CLONAZEPAM Inactive PREDNISONE 20 MG TAB 3 tabs today, then 1 tab twice daily for 3 day, then one daily for three days PREDNISONE 20 MG TAB 236310 PREDNISONE Inactive PREDNISONE 20 MG TAB 2 tabs daily for 4 days, 1 tab daily for 4 days, 1/2 tab daily for 4 days PREDNISONE 20 MG TAB 078576 PREDNISONE Inactive PREDNISONE 10 MG TABS 1 tab po daily PREDNISONE 10 MG TABS 900858 PREDNISONE Inactive TYLENOL EXTRA STRENGTH 500 MG TABS as needed TYLENOL EXTRA STRENGTH 500 MG TABS 124388 ACETAMINOPHEN Inactive MUPIROCIN 2 % OINT apply to affected area BID x 14 days MUPIROCIN 2 % OINT 330666 MUPIROCIN Inactive MONTELUKAST SODIUM 10 MG TABS 1 tab po in the evening MONTELUKAST SODIUM 10 MG TABS 397345 MONTELUKAST SODIUM Inactive BENZONATATE 100 MG CAPS 1 cap po TID PRN BENZONATATE 100 MG CAPS 554853 BENZONATATE Inactive NEURONTIN 300 MG CAP 1 cap by mouth three times daily for restless leg 06/22 NEURONTIN 300 MG CAP 691823 GABAPENTIN Inactive LEVAQUIN 500 MG TAB 1 tablet by mouth daily LEVAQUIN 500 MG TAB 026034 LEVOFLOXACIN Inactive PREDNISONE 20 MG TAB 1 TID x 2 days, then 1 BID x 3 days, then 1 Daily x 3 days, then stop PREDNISONE 20 MG TAB 140352 PREDNISONE Inactive POTASSIUM CHLORIDE ER 10 MEQ CR-TABS take 1 tab po daily POTASSIUM CHLORIDE ER 10 MEQ CR-TABS POTASSIUM CHLORIDE Inactive PREDNISONE 20 MG TAB 1 tab twice daily for 3 day, then one daily for three days PREDNISONE 20 MG TAB 473050 PREDNISONE Inactive TESSALON PERLES 100 MG CAP 1 to 2 tablets by mouth 3 times daily as needed for cough TESSALON PERLES 100 MG CAP 356613 BENZONATATE Inactive POTASSIUM CHLORIDE CR 10 MEQ CPCR 1 capsule by mouth daily 02/14 POTASSIUM CHLORIDE CR 10 MEQ CPCR POTASSIUM CHLORIDE Inactive NITROSTAT 0.4 MG SUBL 1 tab under tongueas needed for chest pain ( may take 3 total, 5 min apart, then call 911) NITROSTAT 0.4 MG SUBL 334042 NITROGLYCERIN Inactive LOVASTATIN 40 MG TABS 1 pill by mouth nightly for cholesterol LOVASTATIN 40 MG TABS 367476 LOVASTATIN Inactive CEFDINIR 300 MG ORAL CAPS take 1 cap po bid x 10 days CEFDINIR 300 MG ORAL CAPS 504617 CEFDINIR Inactive ACEBUTOLOL HCL 200 MG CAPS 1 cap in the morning and 2 caps in the evening ACEBUTOLOL HCL 200 MG CAPS 065287 ACEBUTOLOL HCL Inactive VENTOLIN HFA 108 (90 BASE) MCG/ACT AERS 2 -4 puffs four times a day PRN 2013 VENTOLIN HFA 108 (90 BASE) MCG/ACT AERS ALBUTEROL SULFATE Inactive LEVAQUIN 500 MG ORAL TABS Take 1 tab po daily x 8 days LEVAQUIN 500 MG ORAL TABS 629264 LEVOFLOXACIN Inactive PREDNISONE 20 MG TAB 2 tabs daily for 4 days, 1 tab daily for 4 days, 1/2 tab daily for 4 days PREDNISONE 20 MG TAB 372187 PREDNISONE Inactive LOVASTATIN 40 MG ORAL TABS Take 1 tab po every hs LOVASTATIN 40 MG ORAL TABS 918725 LOVASTATIN Inactive DILAUDID 2 MG ORAL TABS Take 1/2 tab po every 4 hours as needed for pain 2014 DILAUDID 2 MG ORAL TABS 674778 HYDROMORPHONE HCL Inactive AMITRIPTYLINE HCL 25 MG ORAL TABS 1 q hs prn AMITRIPTYLINE HCL 25 MG ORAL TABS 166366 AMITRIPTYLINE HCL Inactive MECLIZINE HCL 25 MG TAB 1 tablet three times daily for 3 days, then 1/2 tab three times daily for 3 days. MECLIZINE HCL 25 MG TAB 693415 MECLIZINE HCL Inactive AMLODIPINE BESYLATE 5 MG ORAL TABS Take 1 tab po daily AMLODIPINE BESYLATE 5 MG ORAL TABS 837706 AMLODIPINE BESYLATE Inactive TOPIRAMATE 25 MG TABS 1 tab po BID TOPIRAMATE 25 MG TABS 589062 TOPIRAMATE Inactive PREDNISONE 20 MG TAB 1 tablet twice daily for 2 days, then 1 tablet once daily for 2 days PREDNISONE 20 MG TAB 566962 PREDNISONE Inactive PREDNISONE 20 MG TAB 1 tab twice daily for 3 day, then one daily for three days PREDNISONE 20 MG TAB 490542 PREDNISONE Inactive NIFEDIPINE ER 30 MG ORAL [id number] 1 daily NIFEDIPINE ER 30 MG ORAL [id number] NIFEDIPINE Inactive AMLODIPINE BESYLATE 5 MG TABS 1 tablet by mouth daily AMLODIPINE BESYLATE 5 MG TABS 525925 AMLODIPINE BESYLATE Inactive AZITHROMYCIN 250 MG TABS 2 po qd x 1 day, then 1 po qd x 4 days AZITHROMYCIN 250 MG TABS 5093339 AZITHROMYCIN Inactive AZITHROMYCIN 250 MG TABS 2 po qd x 1 day, then 1 po qd x 4 days AZITHROMYCIN 250 MG TABS 4841626 AZITHROMYCIN Inactive PREDNISONE 20 MG TAB 2 po qd x 5 days PREDNISONE 20 MG TAB 357236 PREDNISONE Inactive Vital Signs Date Name Value [...] Panel - Chemistry sodium, serum 137 mmol/L 969-086 7699/01/03 potassium, serum 3.4 mmol/L 3.5-5.2 chloride, serum 102 mmol/L 98-107 carbon dioxide, venous blood 29.2 mmol/L 21.0-32.0 blood glucose 87 mg/dL 65-110 calcium, serum 8.5 mg/dL 8.5-10.1 urea nitrogen, blood 8 mg/dL 7-18 creatinine, serum 0.82 mg/dL 0.55-1.30 Lab Report: CBC - Hematology hematocrit, blood 39.2 % 36.0-46.0 mean corpuscular volume, RBC 96 fL 80-97 mean corpuscular hemoglobin, RBC 32.8 pg 27.0-31.2 leukocyte count, blood 5.6 10^3/MM^3 10*3/mm3 4.6-10.2 mean corpuscular hemoglobin concentration, RBC 34.3 G/DL % 31.8- 35.4 red blood cell distribution width 13.9 % 11.6-14.8 platelet count 182 10^3/MM^3 10*3/mm3 382-017 7440/08/08 erythrocyte (RBC) count 4.09 10^6/MM^3 10*6/mm3 4.04-5.48 hemoglobin, blood 13.4 g/dL 12.0-16.0 Lab Report: Lipid Panel, Comp. Metabolic Panel, Magnesium - Chemistry sodium, serum 142 mmol/L 787-633 6257/08/08 LDL cholesterol, serum 96 mg/dL 0-130 HDL cholesterol, serum 66 mg/dL 32-96 triglyceride, serum, fasting 92 mg/dL 30-200 cholesterol, serum 180 mg/dL 471-872 2501/08/08 carbon dioxide, venous blood 27.4 mmol/L 21.0-32.0 [...] 10.0-20.0 Encounters Code Encounter Date Provider Facility CPT-89647 Level 3 Est. Patient 11:30:05 CDT Harinder Hernandez [facility] CPT-70397 Level 4 Est. Patient 10:19:23 CDT Harinder Hernandez [facility] CPT-84302 Level 3 Est. Patient 09:58:58 CDT Harinder Cr [facility] CPT-49076 Level 3 Est. Patient 12:37:21 CDT Harinder Cr David [facility] CPT-11635 Level 3 Est. Patient 18:37:17 CDT Harinder Cr David [facility] CPT-42355 Level 4 Est. Patient 11:15:54 CDT Nettie Newberry APRN [facility] CPT-25912 Level 3 Est. Patient 16:42:24 CDT Harinder Cr David [facility] CPT-46031 Level 3 Est. Patient 15:03:36 CDT Harinder Hernandez [facility] CPT-90424 Level 3 Est. Patient 15:03:20 CDT Harinder Hernandez [facility] CPT-08709 Level 3 Est. Patient 12:14:34 CDT Harinder Hernandez [facility] CPT-86086 Level 3 Est. Patient 13:47:15 CDT Harinder Cr David [facility] CPT-16994 Level 3 Est. Patient 14:08:24 CDT Harinder Hernandez [facility] CPT-80068 Level 3 Est. Patient 10:07:15 CDT Harinder Hernandez [facility] CPT-76396 Level 3 Est. Patient 10:06:59 CDT Harinder Cr David [facility] CPT-25890 Level 3 Est. Patient 15:53:29 CDT Jae Morgan MD [facility] CPT-86719 Level 3 Est. Patient 17:19:04 CDT Harinder Hernandez [facility] CPT-42981 Level 3 Est. Patient 11:13:01 CDT Harinder Hernandez [facility] CPT-67465 Level 3 Est. Patient 09:03:58 CDT Harinder Hernandez [facility] CPT-64211 Level 3 Est. Patient 14:46:45 ANSWERING SERVICE TELEPHONE OPERATOR Harinder Cr [facility] CPT-81199 Level 3 Est. Patient 09:35:49 ANSWERING SERVICE TELEPHONE OPERATOR Harinder Cr [facility] CPT-60315 Level 3 Est. Patient 09:29:37 ANSWERING SERVICE TELEPHONE OPERATOR Harinder Hernandez [facility] CPT-64652 Level 3 Est. Patient 15:51:07 CDT Harinder Hernandez [facility] CPT-24697 Level 3 Est. Patient 18:13:13 CDT Harinder Cr [facility] CPT-16480 Level 3 Est. Patient 10:44:19 CDT Harinder Cr [facility] CPT-50095 Level 4 Est. Patient 10:07:19 ANSWERING SERVICE TELEPHONE OPERATOR Harinder Cr [facility] CPT-53965 Level 3 Est. Patient 15:59:32 ANSWERING SERVICE TELEPHONE OPERATOR Harinder Cr [facility] Procedures Code Procedure Name Date Entry Date Standard Description CPT-24365 Hip, complete, 2-3 views - XRAY USE ONLY 10:28:40 CDT CPT-11282 BMP - LAB USE ONLY 16:45:09 ANSWERING SERVICE TELEPHONE OPERATOR CPT-72096 Port a cath flush 12:00:13 ANSWERING SERVICE TELEPHONE OPERATOR CPT-TCMM Transitional Care Mgmt-Moderate 11:20:16 ANSWERING SERVICE TELEPHONE OPERATOR CPT-61903 First Vx - Ix admin for Medicare patients 17:35:15 CDT CPT-55621 Fluzone Preservative Free Intramuscular Suspension 17:35 :15 CDT CPT-12425 Microalbumin - LAB USE ONLY 11:52:05 CDT CPT-TCMM Transitional Care Mgmt-Moderate 11:33:57 CDT CPT-63938 No Charge Offi Visit 14:11:29 CDT CPT-49970 Magnesium - LAB USE ONLY 10:45:44 CDT CPT-98609 Lipid - LAB USE ONLY 10:45:44 CDT CPT-30817 CBC - LAB USE ONLY 10:45:44 CDT CPT-56392 Venipuncture Draw Fee 10:45:43 CDT CPT-73999 Venipuncture Draw Fee 18:21:27 CDT CPT-JTINJ Asp/Joint Injection 18:38:04 CDT CPT-38539 Immunization Each Additional Inj 17:38:04 CDT CPT-51726 Immunization Single Admin 17:38:04 CDT CPT-43878 Prevnar 13 17:38:04 CDT CPT-22187 Fluzone Quadrivalent preservative free (>=3yrs.) 17:38: 04 CDT CPT-64959 No Charge Offi Visit 11:14:03 CDT CPT-16958 Chest 2V Frontal and Lat 14:00:18 CDT CPT-OV Office Visit 16:10:28 CDT CPT-JTINJ Asp/Joint Injection 09:03:57 CDT CPT-Cryo Cryotherapy 09:35:49 ANSWERING SERVICE TELEPHONE OPERATOR CPT-JTINJ Asp/Joint Injection 09:34:45 ANSWERING SERVICE TELEPHONE OPERATOR CPT-J2930 Solu Medrol 125 mg (Methyl Prednisolone Sodium Succinate) 20:37:27 CDT CPT-50630 Abx/Therapy Injection 20:37:27 CDT CPT-44633 Port a cath flush 08:15:51 CDT CPT-39452 Port a cath flush 09:54:16 CDT CPT-22008 Port a cath flush 09:38:02 CDT [facility]-61058 Port a cath flush 11:00:27 ANSWERING SERVICE TELEPHONE OPERATOR
[2017-12-29 00:34] LABS: ALLENS TEST YES-POS; INSPIRED O2 8L; PATIENT TEMP 97.1; VENTILATOR NO
[2017-12-29] MEDS ORDERED: EPINEPHrine INJECTION 1 MG/ML AMP IV ONE (00:35)
--- OUTSIDE RECORDS SUMMARY | 2017-12-29 00:35 | XMS REPORT | Clinical Summary ---
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 NIFEDIPINE 31215538705 Active Harinder Hernandez DO Active AMLODIPINE BESYLATE 5 MG TABS 1 tablet by mouth daily AMLODIPINE BESYLATE 59106159702 No Longer Active Harinder Hernandez DO Active TOPAMAX 25 MG ORAL TABS 1 tab po BID TOPIRAMATE 21317195101 Active Kortney Mccain Active FLUTICASONE PROPIONATE 50 MCG/ACT SUSP 2 sprays per nostril daily PRN Allergies FLUTICASONE PROPIONATE 48165075276 Active Kortney Mccain Active NIFEDIPINE ER 30 MG ORAL [id number] 1 daily NIFEDIPINE 43213215566 No Longer Active Harinder Hernandez DO Active POTASSIUM CHLORIDE 20 MEQ ORAL PACK Take 1 tablet by mouth daily POTASSIUM CHLORIDE 77331656163 Active Ciera Pimentel Active FLOVENT HFA 110 MCG/ACT AERO 2 puffs inhaled b.i.d. FLUTICASONE PROPIONATE HFA 59100567757 Active Harinder Hernandez DO Active POTASSIUM CHLORIDE CR 10 MEQ CPCR 1 capsule by mouth daily POTASSIUM CHLORIDE 66140815343 Active Harinder Hernandez DO Active EPIPEN 2-BRUNA 0.3 MG/0.3ML INJ SOAJ 1 INJ NEEDED EPINEPHRINE 17190204341 Active Harinder Hernandez DO Active PREDNISONE 20 MG TAB 1 tab twice daily for 3 day, then one daily for three days PREDNISONE 54435942181 No Longer Active Harinder Henrandez DO Active PREDNISONE 20 MG TAB 1 tablet twice daily for 2 days, then 1 tablet once daily for 2 days PREDNISONE 12225414504 No Longer Active Harinder Hernandez DO Active ASMANEX 120 METERED DOSES 220 MCG/INH INH AEPB 2 puffs orally twice daily MOMETASONE FUROATE 69303123058 Active Jeri Sosa RPT,RMA Active TOPIRAMATE 25 MG TABS 1 tab po BID TOPIRAMATE 15888681431 No Longer Active Nettie Newberry APRN Active AMLODIPINE BESYLATE 5 MG ORAL TABS Take 1 tab po daily AMLODIPINE BESYLATE 57749011580 No Longer Active Nettie Newberry APRN Active MECLIZINE HCL 25 MG TAB 1 tablet three times daily for 3 days, then 1/2 tab three times daily for 3 days. MECLIZINE HCL 61283728196 No Longer Active Nettie Newberry APRN Active AMITRIPTYLINE HCL 25 MG ORAL TABS 1 q hs prn AMITRIPTYLINE HCL 71651396203 No Longer Active Nettie Newberry APRN Active DILAUDID 2 MG ORAL TABS Take 1/2 tab po every 4 hours as needed for pain 2014 HYDROMORPHONE HCL 05390272830 No Longer Active Nettie Newberry APRN Active CLOPIDOGREL BISULFATE 75 MG ORAL TABS 1 tab by mouth once daily CLOPIDOGREL BISULFATE 58111058575 Active Harinder Hernandez DO Active ATORVASTATIN CALCIUM 10 MG ORAL TABS 1 at bedtime ATORVASTATIN CALCIUM 53213699954 Active Tawnya Pardo MA Active LOVASTATIN 40 MG ORAL TABS Take 1 tab po every hs LOVASTATIN 42542036354 No Longer Active Harinder Hernandez DO Active PREDNISONE 20 MG TAB 2 tabs daily for 4 days, 1 tab daily for 4 days, 1/2 tab daily for 4 days PREDNISONE 36931710347 No Longer Active Harinder Hernandez DO Active LEVAQUIN 500 MG ORAL TABS Take 1 tab po daily x 8 days LEVOFLOXACIN 18842191311 No Longer Active Harinder Hernandez DO Active VENTOLIN HFA 108 (90 BASE) MCG/ACT AERS 2 -4 puffs four times a day PRN 2013 ALBUTEROL SULFATE 79432564597 No Longer Active Jeri Sosa RPT,RMA Active ACEBUTOLOL HCL 200 MG CAPS 1 cap in the morning and 2 caps in the evening ACEBUTOLOL HCL 09811950739 No Longer Active Harinder Hernandez DO Active CEFDINIR 300 MG ORAL CAPS take 1 cap po bid x 10 days CEFDINIR 34833219403 No Longer Active Harinder Hernandez DO Active LOVASTATIN 40 MG TABS 1 pill by mouth nightly for cholesterol LOVASTATIN 18682088106 No Longer Active Nettie Newberry APRN Active NITROSTAT 0.4 MG SUBL 1 tab under tongueas needed for chest pain ( may take 3 total, 5 min apart, then call 911) NITROGLYCERIN 28915542418 No Longer Active Nettie Newberry APRN Active POTASSIUM CHLORIDE CR 10 MEQ CPCR 1 capsule by mouth daily 02/14 POTASSIUM CHLORIDE 87515116098 No Longer Active Nettie Newberry APRN Active TESSALON PERLES 100 MG CAP 1 to 2 tablets by mouth 3 times daily as needed for cough BENZONATATE 84163860442 No Longer Active Nettie Newberry APRN Active THEOPHYLLINE ER 200 MG ORAL [id number] Take 1 tab every 12 hours THEOPHYLLINE 33131835412 Active Tawnya Pardo MA Active PREDNISONE 20 MG TAB 2 po qd x 5 days PREDNISONE 10849444057 No Longer Active Jae Morgan MD Active AZITHROMYCIN 250 MG TABS 2 po qd x 1 day, then 1 po qd x 4 days AZITHROMYCIN 34116389491 No Longer Active Jae Morgan MD Active PREDNISONE 20 MG TAB 1 tab twice daily for 3 day, then one daily for three days PREDNISONE 59130978704 No Longer Active Jae Morgan MD Active SINGULAIR 10 MG TABS 1 pill by mouth every evening for breathing. MONTELUKAST SODIUM 77850777214 Active Tawnya Pardo MA Active TYLENOL 325 MG TAB 3 by mouth q4h as needed ACETAMINOPHEN 98597795428 Active Harinder Hernandez DO Active POTASSIUM CHLORIDE ER 10 MEQ CR-TABS take 1 tab po daily POTASSIUM CHLORIDE 69570722790 No Longer Active Harinder Hernandez DO Active PREDNISONE 20 MG TAB 1 TID x 2 days, then 1 BID x 3 days, then 1 Daily x 3 days, then stop PREDNISONE 59055263532 No Longer Active Jillina Frazell DIABETES SPECIALIST Active LEVAQUIN 500 MG TAB 1 tablet by mouth daily LEVOFLOXACIN 17269228536 No Longer Active Jillina Frazell DIABETES SPECIALIST Active NEURONTIN 300 MG CAP 1 cap by mouth three times daily for restless leg 06/22 GABAPENTIN 40565593238 No Longer Active Harinder Hernandez DO Active BENZONATATE 100 MG CAPS 1 cap po TID PRN BENZONATATE 58245952425 No Longer Active Harinder Hernandez DO Active MONTELUKAST SODIUM 10 MG TABS 1 tab po in the evening MONTELUKAST SODIUM 85074683871 No Longer Active Harinder Hernandez DO Active MUPIROCIN 2 % OINT apply to affected area BID x 14 days MUPIROCIN 50178513184 No Longer Active Harinder Hernandez DO Active TYLENOL EXTRA STRENGTH 500 MG TABS as needed ACETAMINOPHEN 76310133815 No Longer Active Harinder Hernandez DO Active PREDNISONE 10 MG TABS 1 tab po daily PREDNISONE 25964764666 No Longer Active Harinder Hernandez DO Active PREDNISONE 20 MG TAB 2 tabs daily for 4 days, 1 tab daily for 4 days, 1/2 tab daily for 4 days PREDNISONE 18037103954 No Longer Active Harinder Hernandez DO Active AZITHROMYCIN 250 MG TABS 2 po qd x 1 day, then 1 po qd x 4 days AZITHROMYCIN 45836538621 No Longer Active Harinder Hernandez DO Active PREDNISONE 20 MG TAB 3 tabs today, then 1 tab twice daily for 3 day, then one daily for three days PREDNISONE 68002005893 No Longer Active Harinder Hernandez DO Active NIFEDIAC CC 30 MG [id number] 1 tablet daily for raynaud's syndrome NIFEDIPINE 14333640550 No Longer Active Tawnya Pardo MA Active AMBIEN 10 MG TAB 1/2 tab by mouth at bedtime as needed for sleep ZOLPIDEM TARTRATE 71579699181 Active Ciera Pimentel Active CLONAZEPAM 1 MG TABS 1 tablet at bedtime for insomnia and restless legs 09/14 CLONAZEPAM 32308698489 Active Harinder Hernandez DO Active CLONAZEPAM 0.5 MG TABS 1 tab po daily CLONAZEPAM 71454553123 No Longer Active Harinder Hernandez DO Active PREDNISONE 10 MG TAB 1 tablet daily for COPD PREDNISONE 54072719415 Active Ciera Pimentel Active PROAIR HFA 108 (90 BASE) MCG/ACT AERS 2 puffs four times a day as needed 2012 ALBUTEROL SULFATE 49425233797 Active Harinder Hernandez DO Active FLOVENT HFA 110 MCG/ACT AERO 2 puffs inhaled b.i.d. FLUTICASONE PROPIONATE HFA 42181190780 Active Kortney Mccain Active ACIPHEX 20 MG TBEC 1 tab po daily RABEPRAZOLE SODIUM 00165326759 Active Kaylah Nweberry Active CLONAZEPAM 0.5 MG TABS 1 tab po daily CLONAZEPAM 0.5 MG TABS 605444 CLONAZEPAM Inactive PREDNISONE 20 MG TAB 3 tabs today, then 1 tab twice daily for 3 day, then one daily for three days PREDNISONE 20 MG TAB 245288 PREDNISONE Inactive PREDNISONE 20 MG TAB 2 tabs daily for 4 days, 1 tab daily for 4 days, 1/2 tab daily for 4 days PREDNISONE 20 MG TAB 950797 PREDNISONE Inactive PREDNISONE 10 MG TABS 1 tab po daily PREDNISONE 10 MG TABS 207544 PREDNISONE Inactive TYLENOL EXTRA STRENGTH 500 MG TABS as needed TYLENOL EXTRA STRENGTH 500 MG TABS 876984 ACETAMINOPHEN Inactive MUPIROCIN 2 % OINT apply to affected area BID x 14 days MUPIROCIN 2 % OINT 888740 MUPIROCIN Inactive MONTELUKAST SODIUM 10 MG TABS 1 tab po in the evening MONTELUKAST SODIUM 10 MG TABS 20010818 MONTELUKAST SODIUM Inactive BENZONATATE 100 MG CAPS 1 cap po TID PRN BENZONATATE 100 MG CAPS 685514 BENZONATATE Inactive NEURONTIN 300 MG CAP 1 cap by mouth three times daily for restless leg 06/22 NEURONTIN 300 MG CAP 205721 GABAPENTIN Inactive LEVAQUIN 500 MG TAB 1 tablet by mouth daily LEVAQUIN 500 MG TAB 008507 LEVOFLOXACIN Inactive PREDNISONE 20 MG TAB 1 TID x 2 days, then 1 BID x 3 days, then 1 Daily x 3 days, then stop PREDNISONE 20 MG TAB 289382 PREDNISONE Inactive POTASSIUM CHLORIDE ER 10 MEQ CR-TABS take 1 tab po daily POTASSIUM CHLORIDE ER 10 MEQ CR-TABS POTASSIUM CHLORIDE Inactive PREDNISONE 20 MG TAB 1 tab twice daily for 3 day, then one daily for three days PREDNISONE 20 MG TAB 458959 PREDNISONE Inactive TESSALON PERLES 100 MG CAP 1 to 2 tablets by mouth 3 times daily as needed for cough TESSALON PERLES 100 MG CAP 576187 BENZONATATE Inactive POTASSIUM CHLORIDE CR 10 MEQ CPCR 1 capsule by mouth daily 02/14 POTASSIUM CHLORIDE CR 10 MEQ CPCR POTASSIUM CHLORIDE Inactive NITROSTAT 0.4 MG SUBL 1 tab under tongueas needed for chest pain ( may take 3 total, 5 min apart, then call 911) NITROSTAT 0.4 MG SUBL 087218 NITROGLYCERIN Inactive LOVASTATIN 40 MG TABS 1 pill by mouth nightly for cholesterol LOVASTATIN 40 MG TABS 795396 LOVASTATIN Inactive CEFDINIR 300 MG ORAL CAPS take 1 cap po bid x 10 days CEFDINIR 300 MG ORAL CAPS 995716 CEFDINIR Inactive ACEBUTOLOL HCL 200 MG CAPS 1 cap in the morning and 2 caps in the evening ACEBUTOLOL HCL 200 MG CAPS 816182 ACEBUTOLOL HCL Inactive VENTOLIN HFA 108 (90 BASE) MCG/ACT AERS 2 -4 puffs four times a day PRN 2013 VENTOLIN HFA 108 (90 BASE) MCG/ACT AERS ALBUTEROL SULFATE Inactive LEVAQUIN 500 MG ORAL TABS Take 1 tab po daily x 8 days LEVAQUIN 500 MG ORAL TABS 155940 LEVOFLOXACIN Inactive PREDNISONE 20 MG TAB 2 tabs daily for 4 days, 1 tab daily for 4 days, 1/2 tab daily for 4 days PREDNISONE 20 MG TAB 498765 PREDNISONE Inactive LOVASTATIN 40 MG ORAL TABS Take 1 tab po every hs LOVASTATIN 40 MG ORAL TABS 778435 LOVASTATIN Inactive DILAUDID 2 MG ORAL TABS Take 1/2 tab po every 4 hours as needed for pain 2014 DILAUDID 2 MG ORAL TABS 455073 HYDROMORPHONE HCL Inactive AMITRIPTYLINE HCL 25 MG ORAL TABS 1 q hs prn AMITRIPTYLINE HCL 25 MG ORAL TABS 873469 AMITRIPTYLINE HCL Inactive MECLIZINE HCL 25 MG TAB 1 tablet three times daily for 3 days, then 1/2 tab three times daily for 3 days. MECLIZINE HCL 25 MG TAB 139727 MECLIZINE HCL Inactive AMLODIPINE BESYLATE 5 MG ORAL TABS Take 1 tab po daily AMLODIPINE BESYLATE 5 MG ORAL TABS 528665 AMLODIPINE BESYLATE Inactive TOPIRAMATE 25 MG TABS 1 tab po BID TOPIRAMATE 25 MG TABS 897287 TOPIRAMATE Inactive PREDNISONE 20 MG TAB 1 tablet twice daily for 2 days, then 1 tablet once daily for 2 days PREDNISONE 20 MG TAB 667033 PREDNISONE Inactive PREDNISONE 20 MG TAB 1 tab twice daily for 3 day, then one daily for three days PREDNISONE 20 MG TAB 905248 PREDNISONE Inactive NIFEDIPINE ER 30 MG ORAL [id number] 1 daily NIFEDIPINE ER 30 MG ORAL [id number] NIFEDIPINE Inactive AMLODIPINE BESYLATE 5 MG TABS 1 tablet by mouth daily AMLODIPINE BESYLATE 5 MG TABS 068998 AMLODIPINE BESYLATE Inactive AZITHROMYCIN 250 MG TABS 2 po qd x 1 day, then 1 po qd x 4 days AZITHROMYCIN 250 MG TABS 6698871 AZITHROMYCIN Inactive AZITHROMYCIN 250 MG TABS 2 po qd x 1 day, then 1 po qd x 4 days AZITHROMYCIN 250 MG TABS 3058800 AZITHROMYCIN Inactive PREDNISONE 20 MG TAB 2 po qd x 5 days PREDNISONE 20 MG TAB 535318 PREDNISONE Inactive Vital Signs Date Name Value [...] pressure, diastolic - 8462-4 76 mm[Hg] BP adna blood pressure, systolic - 8480-6 117 mm[Hg] BP sys pulse rate E&M - 8867-4 76 /min Heart rate temperature E&M 97.2 [degF] Body temperature weight E&M - 3141-9 128 [lb_av] Weight Measured Diagnostic Results Date Name Value Unit Range Description Lab Report: Basic Metabolic Panel - Chemistry sodium, serum 137 mmol/L 954-069 1729/01/03 potassium, serum 3.4 mmol/L 3.5-5.2 chloride, serum [...] Magnesium - Chemistry cholesterol, serum 180 mg/dL 827-217 0147/08/08 triglyceride, serum, fasting 92 mg/dL 30-200 HDL cholesterol, serum 66 mg/dL 32-96 LDL cholesterol, serum 96 mg/dL 0-130 sodium, serum 142 mmol/L 587-620 9108/08/08 carbon dioxide, venous blood 27.4 mmol/L 21.0-32.0 [...] 10.0-20.0 Encounters Code Encounter Date Provider Facility CPT-97032 Level 4 Est. Patient 10:19:23 CDT Harinder Cr [facility] CPT-91767 Level 3 Est. Patient 09:58:58 CDT Harinder Cr [facility] CPT-87091 Level 3 Est. Patient 12:37:21 CDT Harinder Cr [facility] CPT-00434 Level 3 Est. Patient 18:37:17 CDT Harinder Cr [facility] CPT-64952 Level 4 Est. Patient 11:15:54 CDT Nettie Newberry [facility] CPT-12720 Level 3 Est. Patient 16:42:24 CDT Harinder Cr [facility] CPT-11874 Level 3 Est. Patient 15:03:36 CDT Harinder Cr [facility] CPT-24701 Level 3 Est. Patient 15:03:20 CDT Harinder Cr [facility] CPT-95229 Level 3 Est. Patient 12:14:34 CDT Harinder Hernandez [facility] CPT-67643 Level 3 Est. Patient 13:47:15 CDT Harinder Hernandez [facility] CPT-13745 Level 3 Est. Patient 14:08:24 CDT Harinder Hernandez [facility] CPT-15460 Level 3 Est. Patient 10:07:15 CDT Harinder Hernandez [facility] CPT-27798 Level 3 Est. Patient 10:06:59 CDT Harinder Hernandez [facility] CPT-41467 Level 3 Est. Patient 15:53:29 CDT Jae Morgan [facility] CPT-99041 Level 3 Est. Patient 17:19:04 CDT Harinder Hernandez [facility] CPT-14706 Level 3 Est. Patient 11:13:01 CDT Harinder Hernandez [facility] CPT-37919 Level 3 Est. Patient 09:03:58 CDT Harinder Cr [facility] CPT-91246 Level 3 Est. Patient 14:46:45 BONDING AND COMPOSITE FABRICATOR Harinder Hernandez [facility] CPT-54228 Level 3 Est. Patient 09:35:49 BONDING AND COMPOSITE FABRICATOR Harinder Hernandez [facility] CPT-39327 Level 3 Est. Patient 09:29:37 BONDING AND COMPOSITE FABRICATOR Harinder Hernandez [facility] CPT-09948 Level 3 Est. Patient 15:51:07 CDT Harinder Hernandez [facility] CPT-26019 Level 3 Est. Patient 18:13:13 CDT Harinder Hernandez [facility] CPT-47148 Level 3 Est. Patient 10:44:19 CDT Harinder Cr [facility] CPT-88752 Level 4 Est. Patient 10:07:19 BONDING AND COMPOSITE FABRICATOR Harinder Cr [facility] CPT-51870 Level 3 Est. Patient 15:59:32 BONDING AND COMPOSITE FABRICATOR Harinder Cr [facility] -[facility] Procedures Code Procedure Name Date Entry Date Standard Description CPT-21842 Hip, complete, 2-3 views - XRAY USE ONLY 10:28:40 CDT CPT-65317 BMP - LAB USE ONLY 16:45:09 BONDING AND COMPOSITE FABRICATOR CPT-72599 Port a cath flush 12:00:13 BONDING AND COMPOSITE FABRICATOR CPT-TCMM Transitional Care Mgmt-Moderate 11:20:16 BONDING AND COMPOSITE FABRICATOR CPT-72509 First Vx - Ix admin for Medicare patients 17:35:15 CDT CPT-87984 Fluzone Preservative Free Intramuscular Suspension 17:35 :15 CDT CPT-12295 Microalbumin - LAB USE ONLY 11:52:05 CDT CPT-TCMM Transitional Care Mgmt-Moderate 11:33:57 CDT CPT-04186 No Charge Offi Visit 14:11:29 CDT CPT-88635 Magnesium - LAB USE ONLY 10:45:44 CDT CPT-12614 Lipid - LAB USE ONLY 10:45:44 CDT CPT-20396 CBC - LAB USE ONLY 10:45:44 CDT CPT-99187 Venipuncture Draw Fee 10:45:43 CDT CPT-84071 Venipuncture Draw Fee 18:21:27 CDT CPT-JTINJ Asp/Joint Injection 18:38:04 CDT CPT-30845 Immunization Each Additional Inj 17:38:04 CDT CPT-91970 Immunization Single Admin 17:38:04 CDT CPT-89187 Prevnar 13 17:38:04 CDT CPT-68715 Fluzone Quadrivalent preservative free (>=3yrs.) 17:38: 04 CDT CPT-09824 No Charge Offi Visit 11:14:03 CDT CPT-56490 Chest 2V Frontal and Lat 14:00:18 CDT CPT-OV Office Visit 16:10:28 CDT CPT-JTINJ Asp/Joint Injection 09:03:57 CDT CPT-Cryo Cryotherapy 09:35:49 BONDING AND COMPOSITE FABRICATOR CPT-JTINJ Asp/Joint Injection 09:34:45 BONDING AND COMPOSITE FABRICATOR CPT-J2930 Solu Medrol 125 mg (Methyl Prednisolone Sodium Succinate) 20:37:27 CDT CPT-93960 Abx/Therapy Injection 20:37:27 CDT CPT-66467 Port a cath flush 08:15:51 CDT CPT-04736 Port a cath flush 09:54:16 CDT CPT-94245 Port a cath flush 09:38:02 CDT CPT-21079 Port a cath flush 11:00:27 BONDING AND COMPOSITE FABRICATOR
--- OUTSIDE RECORDS SUMMARY | 2017-12-29 00:36 | XMS REPORT | Clinical Summary ---
Author Author Admin, QIE Organization [facility] [employer] Address Unknown Phone Unavailable Allergies, Adverse Reactions, [...] tab po q day therafter. POTASSIUM CHLORIDE [id number] Active Kortney Mccain Active POTASSIUM CHLORIDE CR 10 MEQ CPCR 1 capsule BID POTASSIUM CHLORIDE 98063897750 No Longer Active Kortney Mccain Active LASIX 20 MG TAB 1 tablet by mouth every morning FUROSEMIDE 01480368107 No Longer Active Kortney Mccain Active SPIRONOLACTONE 25 MG TAB 1 tablet by mouth daily SPIRONOLACTONE 39862358000 Active Ciera Pimentel Active FLUOXETINE HCL 10 MG ORAL CAPS 1 po qd for depression/anxiety FLUOXETINE HCL 03735362341 Active Harinder Hernandez DO Active VOLTAREN 1 % GEL apply q 6-8 hour to left arm as needed for pain DICLOFENAC SODIUM 58469226722 Active Harinder Hernandez DO Active ALBUTEROL SULFATE 0.083 % NEBU SOLN 1 vial neb q 4hrs for severe asthma. 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 FLUTICASONE PROPIONATE HFA 60908878827 Active Harinder Hernandez DO Active EPIPEN 2-BRUNA 0.3 MG/0.3ML INJ SOAJ 1 INJ NEEDED EPINEPHRINE 93868783069 Active Harinder Hernandez DO Active PREDNISONE 20 MG TAB 1 tab twice daily for 3 day, then one daily for three days PREDNISONE 50166079440 No Longer Active Harinder Hernandez DO Active PREDNISONE 20 MG TAB 1 tablet twice daily for 2 days, then 1 tablet once daily for 2 days PREDNISONE 78849075876 No Longer Active Harinder Hernandez DO Active ASMANEX 120 METERED DOSES 220 MCG/INH INH AEPB 2 puffs orally twice daily MOMETASONE FUROATE 45597260384 Active Jeri Soas LPN Active TOPIRAMATE 25 MG TABS 1 tab po BID TOPIRAMATE 56970687617 No Longer Active Nettie Newberry APRN Active AMLODIPINE BESYLATE 5 MG ORAL TABS Take 1 tab po daily AMLODIPINE BESYLATE 47522960582 No Longer Active Nettie Newberry APRN Active MECLIZINE HCL 25 MG TAB 1 tablet three times daily for 3 days, then 1/2 tab three times daily for 3 days. MECLIZINE HCL 95561918160 No Longer Active Nettie Newberry MAHENDRA Active AMITRIPTYLINE HCL 25 MG ORAL TABS 1 q hs prn AMITRIPTYLINE HCL 12017265495 No Longer Active Nettie Newberry MAHENDRA Active DILAUDID 2 MG ORAL TABS Take 1/2 tab po every 4 hours as needed for pain 2014 HYDROMORPHONE HCL 82493457494 No Longer Active Nettieog Newberry APRN Active CLOPIDOGREL BISULFATE 75 MG ORAL TABS 1 tab by mouth once daily CLOPIDOGREL BISULFATE 55945796461 Active Harinder Hernandez DO Active ATORVASTATIN CALCIUM 10 MG ORAL TABS 1 at bedtime ATORVASTATIN CALCIUM 21067158874 Active Tawnya Pardo MA Active LOVASTATIN 40 MG ORAL TABS Take 1 tab po every hs LOVASTATIN 22325575373 No Longer Active Harinder Hernandez DO Active PREDNISONE 20 MG TAB 2 tabs daily for 4 days, 1 tab daily for 4 days, 1/2 tab daily for 4 days PREDNISONE 24038701126 No Longer Active Harinder Hernandez DO Active LEVAQUIN 500 MG ORAL TABS Take 1 tab po daily x 8 days LEVOFLOXACIN 42725522362 No Longer Active Harinder Hernandez DO Active VENTOLIN HFA 108 (90 BASE) MCG/ACT AERS 2 -4 puffs four times a day PRN 2013 ALBUTEROL SULFATE 11576542732 No Longer Active Jeri Sosa LPN Active ACEBUTOLOL HCL 200 MG CAPS 1 cap in the morning and 2 caps in the evening ACEBUTOLOL HCL 93633361486 No Longer Active Harinder Hernandez DO Active CEFDINIR 300 MG ORAL CAPS take 1 cap po bid x 10 days CEFDINIR 28442611886 No Longer Active Harinder Hernandez DO Active LOVASTATIN 40 MG TABS 1 pill by mouth nightly for cholesterol LOVASTATIN 68511055007 No Longer Active Nettie Rohith MAHENDRA Active NITROSTAT 0.4 MG SUBL 1 tab under tongueas needed for chest pain ( may take 3 total, 5 min apart, then call 911) NITROGLYCERIN 59665018341 No Longer Active Nettie Newberry MAHENDRA Active POTASSIUM CHLORIDE CR 10 MEQ CPCR 1 capsule by mouth daily 02/14 POTASSIUM CHLORIDE 29399313524 [facility] TESSALON PERLES 100 MG CAP 1 to 2 tablets by mouth 3 times daily as needed for cough BENZONATATE 18491712095 No Longer Active Nettie Newberry MAHENDRA Active THEOPHYLLINE ER 200 MG ORAL [id number] Take 1 tab every 12 hours THEOPHYLLINE 92594985075 Active Harinder Hernandez DO Active PREDNISONE 20 MG TAB 2 po qd x 5 days PREDNISONE 29106104011 No Longer Active Jae Morgan MD Active AZITHROMYCIN 250 MG TABS 2 po qd x 1 day, then 1 po qd x 4 days AZITHROMYCIN 66847734383 No Longer Active Jae Morgan MD Active PREDNISONE 20 MG TAB 1 tab twice daily for 3 day, then one daily for three days PREDNISONE 63556399561 No Longer Active Jae Morgan MD Active SINGULAIR 10 MG TABS 1 pill by mouth every evening for breathing. MONTELUKAST SODIUM 26085165860 Active Tawnya Pardo MA Active TYLENOL 325 MG TAB 3 by mouth q4h as needed ACETAMINOPHEN 40453398321 Active Harinder Hernandez DO Active POTASSIUM CHLORIDE ER 10 MEQ CR-TABS take 1 tab po daily POTASSIUM CHLORIDE 37779179297 No Longer Active Harinder Hernandez DO Active PREDNISONE 20 MG TAB 1 TID x 2 days, then 1 BID x 3 days, then 1 Daily x 3 days, then stop PREDNISONE 52210822790 No Longer Active John Montemayor APRN Active LEVAQUIN 500 MG TAB 1 tablet by mouth daily LEVOFLOXACIN 46705499527 No Longer Active John Montemayor FOOD PACKER Active NEURONTIN 300 MG CAP 1 cap by mouth three times daily for restless leg 06/22 GABAPENTIN 20432269160 No Longer Active Harinder Hernandez DO Active BENZONATATE 100 MG CAPS 1 cap po TID PRN BENZONATATE 15056673495 No Longer Active Harinder Hernandez DO Active MONTELUKAST SODIUM 10 MG TABS 1 tab po in the evening MONTELUKAST SODIUM 30925553044 No Longer Active Harinder Hernandez DO Active MUPIROCIN 2 % OINT apply to affected area BID x 14 days MUPIROCIN 77068014572 No Longer Active Harinder Hernandez DO Active TYLENOL EXTRA STRENGTH 500 MG TABS as needed ACETAMINOPHEN 66612620574 No Longer Active Harinder Hernandez DO Active PREDNISONE 10 MG TABS 1 tab po daily PREDNISONE 91050410348 No Longer Active Harinder Hernandez DO Active PREDNISONE 20 MG TAB 2 tabs daily for 4 days, 1 tab daily for 4 days, 1/2 tab daily for 4 days PREDNISONE 10321465859 No Longer Active Harinder Hernandez DO Active AZITHROMYCIN 250 MG TABS 2 po qd x 1 day, then 1 po qd x 4 days AZITHROMYCIN 31948355513 No Longer Active Harinder Hernandez DO Active PREDNISONE 20 MG TAB 3 tabs today, then 1 tab twice daily for 3 day, then one daily for three days PREDNISONE 07850936571 No Longer Active Harinder Hernandez DO Active NIFEDIAC CC 30 MG [id number] 1 tablet daily for raynaud's syndrome NIFEDIPINE 56982672732 No Longer Active Tawnya Pardo MA Active AMBIEN 10 MG TAB 1/2 tab by mouth at bedtime as needed for sleep ZOLPIDEM TARTRATE 00168649134 Active Harinder Hernandez DO Active CLONAZEPAM 1 MG TABS 1 tablet at bedtime for insomnia and restless legs 09/14 CLONAZEPAM 59810086744 Active Harinder Hernandez DO Active CLONAZEPAM 0.5 MG TABS 1 tab po daily CLONAZEPAM 00934633329 No Longer Active Harinder Hernandez DO Active PREDNISONE 10 MG TAB 1 tablet daily for COPD PREDNISONE 22921274642 Active Harinder Hernandez DO Active PROAIR HFA 108 (90 BASE) MCG/ACT AERS 2 puffs four times a day as needed 2012 ALBUTEROL SULFATE 40477924896 Active Harinder Hernandez DO Active FLOVENT HFA 110 MCG/ACT AERO 2 puffs inhaled b.i.d. FLUTICASONE PROPIONATE HFA 21286027085 Active Kortney Mccain Active ACIPHEX 20 MG TBEC 1 tab po daily RABEPRAZOLE SODIUM 15301764120 Active Kaylah Newberry Active CLONAZEPAM 0.5 MG TABS 1 tab po daily CLONAZEPAM 0.5 MG TABS 631405 CLONAZEPAM Inactive PREDNISONE 20 MG TAB 3 tabs today, then 1 tab twice daily for 3 day, then one daily for three days PREDNISONE 20 MG TAB 721367 PREDNISONE Inactive PREDNISONE 20 MG TAB 2 tabs daily for 4 days, 1 tab daily for 4 days, 1/2 tab daily for 4 days PREDNISONE 20 MG TAB 654762 PREDNISONE Inactive PREDNISONE 10 MG TABS 1 tab po daily PREDNISONE 10 MG TABS 447134 PREDNISONE Inactive TYLENOL EXTRA STRENGTH 500 MG TABS as needed TYLENOL EXTRA STRENGTH 500 MG TABS ACETAMINOPHEN Inactive MUPIROCIN 2 % OINT apply to affected area BID x 14 days MUPIROCIN 2 % OINT 940432 MUPIROCIN Inactive MONTELUKAST SODIUM 10 MG TABS 1 tab po in the evening MONTELUKAST SODIUM 10 MG TABS 20010818 MONTELUKAST SODIUM Inactive BENZONATATE 100 MG CAPS 1 cap po TID PRN BENZONATATE 100 MG CAPS 206506 BENZONATATE Inactive NEURONTIN 300 MG CAP 1 cap by mouth three times daily for restless leg 06/22 NEURONTIN 300 MG CAP 882211 GABAPENTIN Inactive LEVAQUIN 500 MG TAB 1 tablet by mouth daily LEVAQUIN 500 MG TAB 254928 LEVOFLOXACIN Inactive PREDNISONE 20 MG TAB 1 TID x 2 days, then 1 BID x 3 days, then 1 Daily x 3 days, then stop PREDNISONE 20 MG TAB 800940 PREDNISONE Inactive POTASSIUM CHLORIDE ER 10 MEQ CR-TABS take 1 tab po daily POTASSIUM CHLORIDE ER 10 MEQ CR-TABS POTASSIUM CHLORIDE Inactive PREDNISONE 20 MG TAB 1 tab twice daily for 3 day, then one daily for three days PREDNISONE 20 MG TAB 497323 PREDNISONE Inactive TESSALON PERLES 100 MG CAP 1 to 2 tablets by mouth 3 times daily as needed for cough TESSALON PERLES 100 MG CAP 909342 BENZONATATE Inactive POTASSIUM CHLORIDE CR 10 MEQ CPCR 1 capsule by mouth daily 02/14 POTASSIUM CHLORIDE CR 10 MEQ CPCR POTASSIUM CHLORIDE Inactive NITROSTAT 0.4 MG SUBL 1 tab under tongueas needed for chest pain ( may take 3 total, 5 min apart, then call 911) NITROSTAT 0.4 MG SUBL 049077 NITROGLYCERIN Inactive LOVASTATIN 40 MG TABS 1 pill by mouth nightly for cholesterol LOVASTATIN 40 MG TABS 157377 LOVASTATIN Inactive CEFDINIR 300 MG ORAL CAPS take 1 cap po bid x 10 days CEFDINIR 300 MG ORAL CAPS 541997 CEFDINIR Inactive ACEBUTOLOL HCL 200 MG CAPS 1 cap in the morning and 2 caps in the evening ACEBUTOLOL HCL 200 MG CAPS 242950 ACEBUTOLOL HCL Inactive VENTOLIN HFA 108 (90 BASE) MCG/ACT AERS 2 -4 puffs four times a day PRN 2013 VENTOLIN HFA 108 (90 BASE) MCG/ACT AERS ALBUTEROL SULFATE Inactive LEVAQUIN 500 MG ORAL TABS Take 1 tab po daily x 8 days LEVAQUIN 500 MG ORAL TABS 060342 LEVOFLOXACIN Inactive PREDNISONE 20 MG TAB 2 tabs daily for 4 days, 1 tab daily for 4 days, 1/2 tab daily for 4 days PREDNISONE 20 MG TAB 628273 PREDNISONE Inactive LOVASTATIN 40 MG ORAL TABS Take 1 tab po every hs LOVASTATIN 40 MG ORAL TABS 140300 LOVASTATIN Inactive DILAUDID 2 MG ORAL TABS Take 1/2 tab po every 4 hours as needed for pain 2014 DILAUDID 2 MG ORAL TABS 874610 HYDROMORPHONE HCL Inactive AMITRIPTYLINE HCL 25 MG ORAL TABS 1 q hs prn AMITRIPTYLINE HCL 25 MG ORAL TABS 969846 AMITRIPTYLINE HCL Inactive MECLIZINE HCL 25 MG TAB 1 tablet three times daily for 3 days, then 1/2 tab three times daily for 3 days. MECLIZINE HCL 25 MG TAB 176943 MECLIZINE HCL Inactive AMLODIPINE BESYLATE 5 MG ORAL TABS Take 1 tab po daily AMLODIPINE BESYLATE 5 MG ORAL TABS 190679 AMLODIPINE BESYLATE Inactive TOPIRAMATE 25 MG TABS 1 tab po BID TOPIRAMATE 25 MG TABS 767858 TOPIRAMATE Inactive PREDNISONE 20 MG TAB 1 tablet twice daily for 2 days, then 1 tablet once daily for 2 days PREDNISONE 20 MG TAB 680180 PREDNISONE Inactive PREDNISONE 20 MG TAB 1 tab twice daily for 3 day, then one daily for three days PREDNISONE 20 MG TAB 817478 PREDNISONE Inactive NIFEDIPINE ER 30 MG ORAL [id number] 1 daily NIFEDIPINE ER 30 MG ORAL [id number] NIFEDIPINE Inactive AMLODIPINE BESYLATE 5 MG TABS 1 tablet by mouth daily AMLODIPINE BESYLATE 5 MG TABS 078496 AMLODIPINE BESYLATE Inactive LASIX 20 MG TAB 1 tablet by mouth every morning LASIX 20 MG TAB 127569 FUROSEMIDE Inactive POTASSIUM CHLORIDE CR 10 MEQ CPCR 1 capsule BID POTASSIUM CHLORIDE CR 10 MEQ CPCR POTASSIUM CHLORIDE Inactive AZITHROMYCIN 250 MG TABS 2 po qd x 1 day, then 1 po qd x 4 days AZITHROMYCIN 250 MG TABS 8521693 AZITHROMYCIN Inactive AZITHROMYCIN 250 MG TABS 2 po qd x 1 day, then 1 po qd x 4 days AZITHROMYCIN 250 MG TABS 9695113 AZITHROMYCIN Inactive PREDNISONE 20 MG TAB 2 po qd x 5 days PREDNISONE 20 MG TAB 206280 PREDNISONE Inactive Vital Signs Date Name Value [...] Panel - Chemistry sodium, serum 137 mmol/L 717-329 5541/01/03 potassium, serum 3.4 mmol/L 3.5-5.2 chloride, serum 102 mmol/L 98-107 carbon dioxide, venous blood 29.2 mmol/L 21.0-32.0 blood glucose 87 mg/dL 65-110 calcium, serum 8.5 mg/dL 8.5-10.1 urea nitrogen, blood 8 mg/dL 7-18 creatinine, serum 0.82 mg/dL 0.55-1.30 sodium, serum 140 mmol/L 708-801 2070/07/13 potassium, serum 3.2 mmol/L 3.5-5.2 chloride, serum 103 mmol/L 98-107 carbon dioxide, venous blood 26.9 mmol/L 21.0-32.0 blood glucose 93 mg/dL 65-110 calcium, serum 9.2 mg/dL 8.5-10.1 urea nitrogen, blood 13 mg/dL 7-18 creatinine, serum 0.84 mg/dL 0.60-1.30 sodium, serum 140 mmol/L 713-266 2476/08/21 potassium, serum 3.8 mmol/L 3.5-5.2 chloride, serum [...] ... - Chemistry sodium, serum 141 mmol/L 520-387 4965/08/07 carbon dioxide, venous blood 34.0 mmol/L 21.0-32.0 [...] 0-19 Encounters Code Encounter Date Provider Facility CPT-57503 Level 4 Est. Patient 14:45:25 CDT Harinder Cr [facility] CPT-99465 Level 4 Est. Patient 09:15:13 CDT Harinder Cr [facility] CPT-52526 Level 3 Est. Patient 11:51:58 CDT Harinder Cr [facility] CPT-92336 Level 3 Est. Patient 11:30:05 CDT Harinder Cr [facility] CPT-76109 Level 4 Est. Patient 10:19:23 CDT Harinder Cr [facility] CPT-00813 Level 3 Est. Patient 09:58:58 CDT Harinder Cr [facility] CPT-35501 Level 3 Est. Patient 12:37:21 CDT Harinder Cr [facility] CPT-13303 Level 3 Est. Patient 18:37:17 CDT Harinder Cr [facility] CPT-99954 Level 4 Est. Patient 11:15:54 CDT Nettie Rohith [facility] CPT-86045 Level 3 Est. Patient 16:42:24 CDT Harinder Cr [facility] CPT-12704 Level 3 Est. Patient 15:03:36 CDT Harinder Cr [facility] CPT-42472 Level 3 Est. Patient 15:03:20 CDT Harinder Cr [facility] CPT-71287 Level 3 Est. Patient 12:14:34 CDT Harinder Cr [facility] CPT-83773 Level 3 Est. Patient 13:47:15 CDT Harinder Cr [facility] CPT-12392 Level 3 Est. Patient 14:08:24 CDT Harinder Hernandez [facility] CPT-99757 Level 3 Est. Patient 10:07:15 CDT Harinder Hernandez [facility] CPT-52319 Level 3 Est. Patient 10:06:59 CDT Harinder Hernandez [facility] CPT-34585 Level 3 Est. Patient 15:53:29 CDT Jae Morgan MD [facility] CPT-23014 Level 3 Est. Patient 17:19:04 CDT Harinder Hernandez [facility] CPT-47658 Level 3 Est. Patient 11:13:01 CDT Harinder Hernandez [facility] CPT-91377 Level 3 Est. Patient 09:03:58 CDT Harinder Hernandez [facility] CPT-49973 Level 3 Est. Patient 14:46:45 FOREIGN EXCHANGE TRADER Harinder Hernandez [facility] CPT-91818 Level 3 Est. Patient 09:35:49 FOREIGN EXCHANGE TRADER Harinder Hernandez [facility] CPT-17364 Level 3 Est. Patient 09:29:37 FOREIGN EXCHANGE TRADER Harinder Hernandez [facility] CPT-11632 Level 3 Est. Patient 15:51:07 CDT Harinder Hernandez [facility] CPT-34069 Level 3 Est. Patient 18:13:13 CDT Harinder Hernandez [facility] CPT-45789 Level 3 Est. Patient 10:44:19 CDT Harinder Cr [facility] CPT-93400 Level 4 Est. Patient 10:07:19 FOREIGN EXCHANGE TRADER Harinder Hernandez [facility] CPT-51586 Level 3 Est. Patient 15:59:32 FOREIGN EXCHANGE TRADER Harinder Cr [facility] Procedures Code Procedure Name Date Entry Date Standard Description CPT-07592 Abd compl w upright - XRAY USE ONLY 14:48:09 CDT 02/18 CPT-61879 Port a cath flush 13:46:05 CDT CPT-48103 Hip, complete, 2-3 views - XRAY USE ONLY 10:28:40 CDT CPT-96279 BMP - LAB USE ONLY 16:45:09 [employer]EIGN EXCHANGE TRADER CPT-30517 Port a cath flush 12:00:13 FOREIGN EXCHANGE TRADER CPT-TCMM Transitional Care Mgmt-Moderate 11:20:16 FOREIGN EXCHANGE TRADER CPT-92979 First Vx - Ix admin for Medicare patients 17:35:15 CDT CPT-11152 Fluzone Preservative Free Intramuscular Suspension 17:35 :15 CDT CPT-13577 Microalbumin - LAB USE ONLY 11:52:05 CDT CPT-TCMM Transitional Care Mgmt-Moderate 11:33:57 CDT CPT-26071 No Charge Offi Visit 14:11:29 CDT CPT-58511 Magnesium - LAB USE ONLY 10:45:44 CDT CPT-57105 Lipid - LAB USE ONLY 10:45:44 CDT CPT-57195 CBC - LAB USE ONLY 10:45:44 CDT CPT-20505 Venipuncture Draw Fee 10:45:43 CDT CPT-81824 Venipuncture Draw Fee 18:21:27 CDT CPT-JTINJ Asp/Joint Injection 18:38:04 CDT CPT-28853 Immunization Each Additional Inj 17:38:04 CDT CPT-16433 Immunization Single Admin 17:38:04 CDT CPT-23471 Prevnar 13 17:38:04 CDT CPT-40719 Fluzone Quadrivalent preservative free (>=3yrs.) 17:38: 04 CDT CPT-55548 No Charge Offi Visit 11:14:03 CDT CPT-57820 Chest 2V Frontal and Lat 14:00:18 CDT CPT-OV Office Visit 16:10:28 CDT CPT-JTINJ Asp/Joint Injection 09:03:57 CDT CPT-Cryo Cryotherapy 09:35:49 FOREIGN EXCHANGE TRADER CPT-JTINJ Asp/Joint Injection 09:34:45 FOREIGN EXCHANGE TRADER CPT-J2930 Solu Medrol 125 mg (Methyl Prednisolone Sodium Succinate) 20:37:27 CDT CPT-05726 Abx/Therapy Injection 20:37:27 CDT CPT-27521 Port a cath flush 08:15:51 CDT CPT-00096 Port a cath flush 09:54:16 CDT CPT-90732 Port a cath flush 09:38:02 CDT CPT-22541 Port a cath flush 11:00:27 FOREIGN EXCHANGE TRADER
--- OUTSIDE RECORDS SUMMARY | 2017-12-29 00:37 | XMS REPORT | Clinical Summary ---
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 NIFEDIPINE 76602324457 Active Harinder Hernandez DO Active AMLODIPINE BESYLATE 5 MG TABS 1 tablet by mouth daily AMLODIPINE BESYLATE 52063112170 No Longer Active Harinder Hernandez DO Active TOPAMAX 25 MG ORAL TABS 1 tab po BID TOPIRAMATE 99318340952 Active Kortney Mccain Active FLUTICASONE PROPIONATE 50 MCG/ACT SUSP 2 sprays per nostril daily PRN Allergies FLUTICASONE PROPIONATE 59966599667 Active Kortney Mccain Active NIFEDIPINE ER 30 MG ORAL [id number] 1 daily NIFEDIPINE 89902617012 No Longer Active Harinder Hernandez DO Active POTASSIUM CHLORIDE 20 MEQ ORAL PACK Take 1 tablet by mouth daily POTASSIUM CHLORIDE 67998389965 Prince Pimentel Active FLOVENT HFA 110 MCG/ACT AERO 2 puffs inhaled b.i.d. FLUTICASONE PROPIONATE HFA 95369588266 Active Harinder Hernandez DO Active POTASSIUM CHLORIDE CR 10 MEQ CPCR 1 capsule by mouth daily POTASSIUM CHLORIDE 38205373878 Active Harinder Hernandez DO Active EPIPEN 2-BRUNA 0.3 MG/0.3ML INJ SOAJ 1 INJ NEEDED EPINEPHRINE 06782637237 Active Harinder Hernandez DO Active PREDNISONE 20 MG TAB 1 tab twice daily for 3 day, then one daily for three days PREDNISONE 73078203545 No Longer Active Harinder Hernandez DO Active PREDNISONE 20 MG TAB 1 tablet twice daily for 2 days, then 1 tablet once daily for 2 days PREDNISONE 97761225702 No Longer Active Harinder Hernandez DO Active ASMANEX 120 METERED DOSES 220 MCG/INH INH AEPB 2 puffs orally twice daily MOMETASONE FUROATE 96634642218 Active Jeri Sosa RPT,RMA Active TOPIRAMATE 25 MG TABS 1 tab po BID TOPIRAMATE 15362215998 No Longer Active Nettie Newberry APRN Active AMLODIPINE BESYLATE 5 MG ORAL TABS Take 1 tab po daily AMLODIPINE BESYLATE 21442469482 No Longer Active Nettie Newberry APRN Active MECLIZINE HCL 25 MG TAB 1 tablet three times daily for 3 days, then 1/2 tab three times daily for 3 days. MECLIZINE HCL 72045320089 No Longer Active Nettie Newberry APRN Active AMITRIPTYLINE HCL 25 MG ORAL TABS 1 q hs prn AMITRIPTYLINE HCL 18947492468 No Longer Active Nettie Newberry APRN Active DILAUDID 2 MG ORAL TABS Take 1/2 tab po every 4 hours as needed for pain 2014 HYDROMORPHONE HCL 13770861613 No Longer Active Nettie Newberry APRN Active CLOPIDOGREL BISULFATE 75 MG ORAL TABS 1 tab by mouth once daily CLOPIDOGREL BISULFATE 23937147803 Active Harinder Hernandez DO Active ATORVASTATIN CALCIUM 10 MG ORAL TABS 1 at bedtime ATORVASTATIN CALCIUM 32130363600 Active Tawnya Pardo MA Active LOVASTATIN 40 MG ORAL TABS Take 1 tab po every hs LOVASTATIN 09556648700 No Longer Active Harinder Hernandez DO Active PREDNISONE 20 MG TAB 2 tabs daily for 4 days, 1 tab daily for 4 days, 1/2 tab daily for 4 days PREDNISONE 47903287296 No Longer Active Harinder Hernandez DO Active LEVAQUIN 500 MG ORAL TABS Take 1 tab po daily x 8 days LEVOFLOXACIN 32518924737 No Longer Active Harinder Hernandez DO Active VENTOLIN HFA 108 (90 BASE) MCG/ACT AERS 2 -4 puffs four times a day PRN 2013 ALBUTEROL SULFATE 04103868393 No Longer Active Jeri Sosa RPT,RMA Active ACEBUTOLOL HCL 200 MG CAPS 1 cap in the morning and 2 caps in the evening ACEBUTOLOL HCL 92782767519 No Longer Active Harinder Hernandez DO Active CEFDINIR 300 MG ORAL CAPS take 1 cap po bid x 10 days CEFDINIR 64783179031 No Longer Active Harinder Hernandez DO Active LOVASTATIN 40 MG TABS 1 pill by mouth nightly for cholesterol LOVASTATIN 23752938596 No Longer Active Nettie Newberry APRN Active NITROSTAT 0.4 MG SUBL 1 tab under tongueas needed for chest pain ( may take 3 total, 5 min apart, then call 911) NITROGLYCERIN 57193386273 No Longer Active Nettie Newberry APRN Active POTASSIUM CHLORIDE CR 10 MEQ CPCR 1 capsule by mouth daily 02/14 POTASSIUM CHLORIDE 57302083182 No Longer Active Nettie Newberry APRN Active TESSALON PERLES 100 MG CAP 1 to 2 tablets by mouth 3 times daily as needed for cough BENZONATATE 21733207276 No Longer Active Nettie Newberry APRN Active THEOPHYLLINE ER 200 MG ORAL [id number] Take 1 tab every 12 hours THEOPHYLLINE 33400531673 Active Kortney Mccain Active PREDNISONE 20 MG TAB 2 po qd x 5 days PREDNISONE 55417269565 No Longer Active Jae Morgan MD Active AZITHROMYCIN 250 MG TABS 2 po qd x 1 day, then 1 po qd x 4 days AZITHROMYCIN 13416710947 No Longer Active Jae Morgan MD Active PREDNISONE 20 MG TAB 1 tab twice daily for 3 day, then one daily for three days PREDNISONE 74879875175 No Longer Active Jae Morgan MD Active SINGULAIR 10 MG TABS 1 pill by mouth every evening for breathing. MONTELUKAST SODIUM 95463764417 Active Tawnya Pardo MA Active TYLENOL 325 MG TAB 3 by mouth q4h as needed ACETAMINOPHEN 18237617075 Active Harinder Hernandez DO Active POTASSIUM CHLORIDE ER 10 MEQ CR-TABS take 1 tab po daily POTASSIUM CHLORIDE 09521652560 No Longer Active Harinder Hernandez DO Active PREDNISONE 20 MG TAB 1 TID x 2 days, then 1 BID x 3 days, then 1 Daily x 3 days, then stop PREDNISONE 45774382035 No Longer Active Jillina Frazell [employer] Active LEVAQUIN 500 MG TAB 1 tablet by mouth daily LEVOFLOXACIN 54944386927 No Longer Active Jillina Frazell [employer] Active NEURONTIN 300 MG CAP 1 cap by mouth three times daily for restless leg 06/22 GABAPENTIN 38370808775 No Longer Active Harinder Hernandez DO Active BENZONATATE 100 MG CAPS 1 cap po TID PRN BENZONATATE 24720646957 No Longer Active Harinder Hernandez DO Active MONTELUKAST SODIUM 10 MG TABS 1 tab po in the evening MONTELUKAST SODIUM 87177617028 No Longer Active Harinder Hernandez DO Active MUPIROCIN 2 % OINT apply to affected area BID x 14 days MUPIROCIN 34558578842 No Longer Active Harinder Hernandez DO Active TYLENOL EXTRA STRENGTH 500 MG TABS as needed ACETAMINOPHEN 39605329067 No Longer Active Harinder Hernandez DO Active PREDNISONE 10 MG TABS 1 tab po daily PREDNISONE 43065122455 No Longer Active Harinder Hernandez DO Active PREDNISONE 20 MG TAB 2 tabs daily for 4 days, 1 tab daily for 4 days, 1/2 tab daily for 4 days PREDNISONE 70096644206 No Longer Active Harinder Hernandez DO Active AZITHROMYCIN 250 MG TABS 2 po qd x 1 day, then 1 po qd x 4 days AZITHROMYCIN 95458000326 No Longer Active Harinder Hernandez DO Active PREDNISONE 20 MG TAB 3 tabs today, then 1 tab twice daily for 3 day, then one daily for three days PREDNISONE 06553261514 No Longer Active Harinder Hernandez DO Active NIFEDIAC CC 30 MG [id number] 1 tablet daily for raynaud's syndrome NIFEDIPINE 75855642416 No Longer Active Tawnya Pardo MA Active AMBIEN 10 MG TAB 1/2 tab by mouth at bedtime as needed for sleep ZOLPIDEM TARTRATE 31985459732 Active Ciera Pimentel Active CLONAZEPAM 1 MG TABS 1 tablet at bedtime for insomnia and restless legs 09/14 CLONAZEPAM 65537539668 Active Harinder Hernandez DO Active CLONAZEPAM 0.5 MG TABS 1 tab po daily CLONAZEPAM 89040923808 No Longer Active Harinder Hernandez DO Active PREDNISONE 10 MG TAB 1 tablet daily for COPD PREDNISONE 19031859743 Active Ciera Pimentel Active PROAIR HFA 108 (90 BASE) MCG/ACT AERS 2 puffs four times a day as needed 2012 ALBUTEROL SULFATE 61337858887 Active Harinder Hernandez DO Active FLOVENT HFA 110 MCG/ACT AERO 2 puffs inhaled b.i.d. FLUTICASONE PROPIONATE HFA 59973960080 Active Kortney Mccain Active ACIPHEX 20 MG TBEC 1 tab po daily RABEPRAZOLE SODIUM 61451015597 Active Kaylah Newberry Active CLONAZEPAM 0.5 MG TABS 1 tab po daily CLONAZEPAM 0.5 MG TABS 876134 CLONAZEPAM Inactive PREDNISONE 20 MG TAB 3 tabs today, then 1 tab twice daily for 3 day, then one daily for three days PREDNISONE 20 MG TAB 675726 PREDNISONE Inactive PREDNISONE 20 MG TAB 2 tabs daily for 4 days, 1 tab daily for 4 days, 1/2 tab daily for 4 days PREDNISONE 20 MG TAB 405852 PREDNISONE Inactive PREDNISONE 10 MG TABS 1 tab po daily PREDNISONE 10 MG TABS 847527 PREDNISONE Inactive TYLENOL EXTRA STRENGTH 500 MG TABS as needed TYLENOL EXTRA STRENGTH 500 MG TABS 470620 ACETAMINOPHEN Inactive MUPIROCIN 2 % OINT apply to affected area BID x 14 days MUPIROCIN 2 % OINT 914789 MUPIROCIN Inactive MONTELUKAST SODIUM 10 MG TABS 1 tab po in the evening MONTELUKAST SODIUM 10 MG TABS 20010818 MONTELUKAST SODIUM Inactive BENZONATATE 100 MG CAPS 1 cap po TID PRN BENZONATATE 100 MG CAPS 922676 BENZONATATE Inactive NEURONTIN 300 MG CAP 1 cap by mouth three times daily for restless leg 06/22 NEURONTIN 300 MG CAP 634637 GABAPENTIN Inactive LEVAQUIN 500 MG TAB 1 tablet by mouth daily LEVAQUIN 500 MG TAB 108383 LEVOFLOXACIN Inactive PREDNISONE 20 MG TAB 1 TID x 2 days, then 1 BID x 3 days, then 1 Daily x 3 days, then stop PREDNISONE 20 MG TAB 351260 PREDNISONE Inactive POTASSIUM CHLORIDE ER 10 MEQ CR-TABS take 1 tab po daily POTASSIUM CHLORIDE ER 10 MEQ CR-TABS POTASSIUM CHLORIDE Inactive PREDNISONE 20 MG TAB 1 tab twice daily for 3 day, then one daily for three days PREDNISONE 20 MG TAB 088796 PREDNISONE Inactive TESSALON PERLES 100 MG CAP [...] then call 911) NITROSTAT 0.4 MG SUBL 315036 NITROGLYCERIN Inactive LOVASTATIN 40 MG TABS 1 pill by mouth nightly for cholesterol LOVASTATIN 40 MG TABS 092594 LOVASTATIN Inactive CEFDINIR 300 MG ORAL CAPS take 1 cap po bid x 10 days CEFDINIR 300 MG ORAL CAPS 141979 CEFDINIR Inactive ACEBUTOLOL HCL 200 MG CAPS 1 cap in the morning and 2 caps in the evening ACEBUTOLOL HCL 200 MG CAPS 859002 ACEBUTOLOL HCL Inactive VENTOLIN HFA 108 (90 BASE) MCG/ACT AERS 2 -4 puffs four times a day PRN 2013 VENTOLIN HFA 108 (90 BASE) MCG/ACT AERS ALBUTEROL SULFATE Inactive LEVAQUIN 500 MG ORAL TABS Take 1 tab po daily x 8 days LEVAQUIN 500 MG ORAL TABS 715821 LEVOFLOXACIN Inactive PREDNISONE 20 MG TAB 2 tabs daily for 4 days, 1 tab daily for 4 days, 1/2 tab daily for 4 days PREDNISONE 20 MG TAB 610490 PREDNISONE Inactive LOVASTATIN 40 MG ORAL TABS Take 1 tab po every hs LOVASTATIN 40 MG ORAL TABS 958134 LOVASTATIN Inactive DILAUDID 2 MG ORAL TABS Take 1/2 tab po every 4 hours as needed for pain 2014 DILAUDID 2 MG ORAL TABS 956485 HYDROMORPHONE HCL Inactive AMITRIPTYLINE HCL 25 MG ORAL TABS 1 q hs prn AMITRIPTYLINE HCL 25 MG ORAL TABS 058242 AMITRIPTYLINE HCL Inactive MECLIZINE HCL 25 MG TAB 1 tablet three times daily for 3 days, then 1/2 tab three times daily for 3 days. MECLIZINE HCL 25 MG TAB 211007 MECLIZINE HCL Inactive AMLODIPINE BESYLATE 5 MG ORAL TABS Take 1 tab po daily AMLODIPINE BESYLATE 5 MG ORAL TABS 318653 AMLODIPINE BESYLATE Inactive TOPIRAMATE 25 MG TABS 1 tab po BID TOPIRAMATE 25 MG TABS 054304 TOPIRAMATE Inactive PREDNISONE 20 MG TAB 1 tablet twice daily for 2 days, then 1 tablet once daily for 2 days PREDNISONE 20 MG TAB 217260 PREDNISONE Inactive PREDNISONE 20 MG TAB 1 tab twice daily for 3 day, then one daily for three days PREDNISONE 20 MG TAB 484939 PREDNISONE Inactive NIFEDIPINE ER 30 MG ORAL [id number] 1 daily NIFEDIPINE ER 30 MG ORAL [id number] NIFEDIPINE Inactive AMLODIPINE BESYLATE 5 MG TABS 1 tablet by mouth daily AMLODIPINE BESYLATE 5 MG TABS 694132 AMLODIPINE BESYLATE Inactive AZITHROMYCIN 250 MG TABS 2 po qd x 1 day, then 1 po qd x 4 days AZITHROMYCIN 250 MG TABS 8009119 AZITHROMYCIN Inactive AZITHROMYCIN 250 MG TABS 2 po qd x 1 day, then 1 po qd x 4 days AZITHROMYCIN 250 MG TABS 6833639 AZITHROMYCIN Inactive PREDNISONE 20 MG TAB 2 po qd x 5 days PREDNISONE 20 MG TAB 381391 PREDNISONE Inactive Vital Signs Date Name Value [...] Panel - Chemistry sodium, serum 137 mmol/L 161-484 6646/01/03 potassium, serum 3.4 mmol/L 3.5-5.2 chloride, serum [...] Magnesium - Chemistry cholesterol, serum 180 mg/dL 354-970 0309/08/08 triglyceride, serum, fasting 92 mg/dL 30-200 HDL cholesterol, serum 66 mg/dL 32-96 LDL cholesterol, serum 96 mg/dL 0-130 sodium, serum 142 mmol/L 285-408 0938/08/08 carbon dioxide, venous blood 27.4 mmol/L 21.0-32.0 [...] 10.0-20.0 Encounters Code Encounter Date Provider Facility CPT-77284 Level 3 Est. Patient 11:30:05 CDT Harinder Cr [facility] CPT-17103 Level 4 Est. Patient 10:19:23 CDT Harinder Cr [facility] CPT-01952 Level 3 Est. Patient 09:58:58 CDT Harinder [facility] CPT-96816 Level 3 Est. Patient 12:37:21 CDT Harinder Hernandez [facility] CPT-55961 Level 3 Est. Patient 18:37:17 CDT Harinder Hernandez [facility] CPT-88399 Level 4 Est. Patient 11:15:54 CDT Nettie Newberry APRN [facility] CPT-41834 Level 3 Est. Patient 16:42:24 CDT Harinder Shaye David [facility] CPT-01046 Level 3 Est. Patient 15:03:36 CDT Harinder Cr David [facility] CPT-60948 Level 3 Est. Patient 15:03:20 CDT Harinder Cr David [facility] CPT-46425 Level 3 Est. Patient 12:14:34 CDT Harinder Hernandez [facility] CPT-83741 Level 3 Est. Patient 13:47:15 CDT Harinder Cr David [facility] CPT-51650 Level 3 Est. Patient 14:08:24 CDT Harinder Cr David [facility] CPT-53970 Level 3 Est. Patient 10:07:15 CDT Harinder Cr David [facility] CPT-18409 Level 3 Est. Patient 10:06:59 CDT Harinder Cr David [facility] CPT-70840 Level 3 Est. Patient 15:53:29 CDT Jae Morgan MD [facility] CPT-28539 Level 3 Est. Patient 17:19:04 CDT Harinder Hernandez [facility] CPT-26648 Level 3 Est. Patient 11:13:01 CDT Harinder Hernandez [facility] CPT-39953 Level 3 Est. Patient 09:03:58 CDT Harinder Hernandez [facility] CPT-45017 Level 3 Est. Patient 14:46:45 [employer]ARM[employer] Harinder Cr [facility] CPT-02069 Level 3 Est. Patient 09:35:49 [employer] Harinder Hernandez [facility] CPT-51633 Level 3 Est. Patient 09:29:37 [employer] Harinder Hernandez [facility] CPT-10105 Level 3 Est. Patient 15:51:07 CDT Harinder Hernandez [facility] CPT-71910 Level 3 Est. Patient 18:13:13 CDT Harinder Hernandez [facility] CPT-25091 Level 3 Est. Patient 10:44:19 CDT Harinder Hernandez [facility] CPT-04145 Level 4 Est. Patient 10:07:19 [employer] Harinder Hernandez [facility] CPT-74731 Level 3 Est. Patient 15:59:32 [employer]ER Harinder Cr [facility] Procedures Code Procedure Name Date Entry Date Standard Description CPT-27562 Hip, complete, 2-3 views - XRAY USE ONLY 10:28:40 CDT CPT-74349 BMP - LAB USE ONLY 16:45:09 H[employer]ARMER CPT-15785 Port a cath flush 12:00:13 HAY FARMER CPT-TCMM Transitional Care Mgmt-Moderate 11:20:16 HAY FARMER CPT-61072 First Vx - Ix admin for Medicare patients 17:35:15 CDT CPT-77221 Fluzone Preservative Free Intramuscular Suspension 17:35 :15 CDT CPT-41970 Microalbumin - LAB USE ONLY 11:52:05 CDT CPT-TCMM Transitional Care Mgmt-Moderate 11:33:57 CDT CPT-01294 No Charge Offi Visit 14:11:29 CDT CPT-17195 Magnesium - LAB USE ONLY 10:45:44 CDT CPT-79196 Lipid - LAB USE ONLY 10:45:44 CDT CPT-17075 CBC - LAB USE ONLY 10:45:44 CDT CPT-60944 Venipuncture Draw Fee 10:45:43 CDT CPT-47592 Venipuncture Draw Fee 18:21:27 CDT CPT-JTINJ Asp/Joint Injection 18:38:04 CDT CPT-89301 Immunization Each Additional Inj 17:38:04 CDT CPT-31553 Immunization Single Admin 17:38:04 CDT CPT-21839 Prevnar 13 17:38:04 CDT CPT-91387 Fluzone Quadrivalent preservative free (>=3yrs.) 17:38: 04 CDT CPT-17395 No Charge Offi Visit 11:14:03 CDT CPT-45339 Chest 2V Frontal and Lat 14:00:18 CDT CPT-OV Office Visit 16:10:28 CDT CPT-JTINJ Asp/Joint Injection 09:03:57 CDT CPT-Cryo Cryotherapy 09:35:49 HAY FARMER CPT-JTINJ Asp/Joint Injection 09:34:45 HAY FARMER CPT-J2930 Solu Medrol 125 mg (Methyl Prednisolone Sodium Succinate) 20:37:27 CDT CPT-43250 Abx/Therapy Injection 20:37:27 CDT CPT-51712 Port a cath flush 08:15:51 CDT CPT-70222 Port a cath flush 09:54:16 CDT [facility]-46747 Port a cath flush 09:38:02 T [facility]-84908 Port a cath flush 11:00:27 HAY FARMER
--- OUTSIDE RECORDS SUMMARY | 2017-12-29 00:38 | XMS REPORT | Clinical Summary ---
Author Author Admin, QIE Organization [facility] [employer] Address Unknown Phone Unavailable Allergies, Adverse Reactions, [...] DO Esophageal reflux Hypokalemia 276.8 Active Harinder Shaye Hernandez DO Hypopotassemia Hip pain, left 719.45 [...] tendinitis, left ICD-726.12 Inactive Harinder Hernandez DO Diarrhea ICD-787.91 Inactive Jae Morgan MD [...] 1 tablet by mouth days 2-3 PREDNISONE 40550226947 Active Meenu Alejo LPN Active NITROSTAT 0.4 MG SUBLINGUAL TABLET SUBLINGUAL 1 tab SL q5min PRN chest pain NITROGLYCERIN 67303546212 Active Meenu Alejo LPN Active THEOPHYLLINE ER 300 MG ORAL TABLET EXTENDED RELEASE 12 HOUR 1 po BID THEOPHYLLINE 35082711707 Active Kortney Mccain Active POTASSIUM CHLORIDE ER 20 MEQ ORAL TABLET EXTENDED RELEASE 1 po q day POTASSIUM CHLORIDE 22173930695 Active Kortney Mccain Active POTASSIUM CHLORIDE 20 MEQ ORAL PACKET 1 tab po q day POTASSIUM CHLORIDE 47170050761 No Longer Active Kortney Mccain Active POTASSIUM CHLORIDE ER 10 MEQ ORAL CAPSULE EXTENDED RELEASE 1 capsule BID 2016 POTASSIUM CHLORIDE 93112951848 No Longer Active Kortney Mccain Active LASIX 20 MG ORAL TABLET 1 tablet by mouth every morning FUROSEMIDE 60958222299 No Longer Active Kortney Mccain Active SPIRONOLACTONE 25 MG ORAL TABLET 1 tablet by mouth daily SPIRONOLACTONE 45352091313 Active Kortney Mccain Active FLUOXETINE HCL 10 MG ORAL CAPSULE 1 po qd for depression/anxiety FLUOXETINE HCL 77923949487 Active Harinder Hernandez DO Active VOLTAREN 1 % TRANSDERMAL GEL apply q 6-8 hour to left arm as needed for pain DICLOFENAC SODIUM 53656952086 Active Kortney Mccain Active ALBUTEROL SULFATE (2.5 MG/3ML) 0.083% INHALATION NEBULIZATION SOLUTION 1 vial neb q 4hrs for severe asthma. 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 NIFEDIPINE 50262433691 Active Kortney Mccain Active AMLODIPINE BESYLATE 5 MG ORAL TABLET 1 tablet by mouth daily 2016 AMLODIPINE BESYLATE 88607908967 No Longer Active Harinder Hernandez DO Active TOPAMAX 25 MG ORAL TABLET 1 tab po BID TOPIRAMATE 28773299468 Active Kortney Mccain Active FLUTICASONE PROPIONATE 50 MCG/ACT NASAL SUSPENSION 2 sprays per nostril daily PRN Allergies FLUTICASONE PROPIONATE 03034700483 Active Meenu Alejo LPN Active NIFEDIPINE ER 30 MG ORAL TABLET EXTENDED RELEASE 24 HOUR 1 daily NIFEDIPINE 08824638446 No Longer Active Harinder Hernandez DO Active FLOVENT HFA 110 MCG/ACT INHALATION AEROSOL 2 puffs inhaled b.i.d. FLUTICASONE PROPIONATE HFA 00049507439 Active Harinder Hernandez DO Active EPIPEN 2-BRUNA 0.3 MG/0.3ML INJECTION SOLUTION AUTO-INJECTOR 1 INJ NEEDED EPINEPHRINE 85318923840 Active Kortney Mccain Active PREDNISONE 20 MG ORAL TABLET 1 tab twice daily for 3 day, then one daily for three days PREDNISONE 96510386346 No Longer Active Harinder Hernandez DO Active PREDNISONE 20 MG ORAL TABLET 1 tablet twice daily for 2 days, then 1 tablet once daily for 2 days PREDNISONE 58303991048 No Longer Active Harinder Hernandez DO Active ASMANEX 120 METERED DOSES 220 MCG/INH INHALATION AEROSOL POWDER BREATH ACTIVATED 2 puffs orally twice daily MOMETASONE FUROATE 07325725147 Active Jeri Sosa LPN Active TOPIRAMATE 25 MG ORAL TABLET 1 tab po BID TOPIRAMATE 26744256670 No Longer Active Nettie Newberry APRN Active AMLODIPINE BESYLATE 5 MG ORAL TABLET Take 1 tab po daily AMLODIPINE BESYLATE 47495042135 No Longer Active Nettie Newberry APRN Active MECLIZINE HCL 25 MG ORAL TABLET 1 tablet three times daily for 3 days, then 1/ 2 tab three times daily for 3 days. MECLIZINE HCL 59897188913 No Longer Active Nettie Newberry APRN Active AMITRIPTYLINE HCL 25 MG ORAL TABLET 1 q hs prn AMITRIPTYLINE HCL 72300717676 No Longer Active Nettie Newberry APRN Active DILAUDID 2 MG ORAL TABLET Take 1/2 tab po every 4 hours as needed for pain HYDROMORPHONE HCL 97272719112 No Longer Active Nettie Newberry APRN Active CLOPIDOGREL BISULFATE 75 MG ORAL TABLET 1 tab by mouth once daily CLOPIDOGREL BISULFATE 62305439770 Active Meenu Alejo LPN Active ATORVASTATIN CALCIUM 10 MG ORAL TABLET 1 at bedtime ATORVASTATIN CALCIUM 31530300916 Active Kortney Mccain Active LOVASTATIN 40 MG ORAL TABLET Take 1 tab po every hs LOVASTATIN 54537032645 No Longer Active Harinder Hernandez DO Active PREDNISONE 20 MG ORAL TABLET 2 tabs daily for 4 days, 1 tab daily for 4 days, 1/2 tab daily for 4 days PREDNISONE 68891368334 No Longer Active Harinder Hernandez DO Active LEVAQUIN 500 MG ORAL TABLET Take 1 tab po daily x 8 days LEVOFLOXACIN 20896031440 No Longer Active Harinder Hernandez DO Active VENTOLIN HFA 108 (90 Base) MCG/ACT INHALATION AEROSOL SOLUTION 2 -4 puffs four times a day PRN ALBUTEROL SULFATE 69569756301 No Longer Active Jeri Sosa LPN Active ACEBUTOLOL HCL 200 MG ORAL CAPSULE 1 cap in the morning and 2 caps in the evening ACEBUTOLOL HCL 35913234370 No Longer Active Harinder Hernandez DO Active CEFDINIR 300 MG ORAL CAPSULE take 1 cap po bid x 10 days CEFDINIR 52480051826 No Longer Active Harinder Hernandez DO Active LOVASTATIN 40 MG ORAL TABLET 1 pill by mouth nightly for cholesterol LOVASTATIN 81954024614 No Longer Active Nettie Newberry APRN Active NITROSTAT 0.4 MG SUBLINGUAL TABLET SUBLINGUAL 1 tab under tongueas needed for chest pain ( may take 3 total, 5 min apart, then call 911) NITROGLYCERIN 38089482448 No Longer Active Nettie Newberry APRN Active POTASSIUM CHLORIDE ER 10 MEQ ORAL CAPSULE EXTENDED RELEASE 1 capsule by mouth daily POTASSIUM CHLORIDE 77954400993 No Longer Active Nettie Newberry APRN Active TESSALON PERLES 100 MG ORAL CAPSULE 1 to 2 tablets by mouth 3 times daily as needed for cough BENZONATATE 86363508827 No Longer Active Nettie Newberry APRN Active PREDNISONE 20 MG ORAL TABLET 2 po qd x 5 days PREDNISONE 99775704675 No Longer Active Jae Morgan MD Active AZITHROMYCIN 250 MG ORAL TABLET 2 po qd x 1 day, then 1 po qd x 4 days 12/30 AZITHROMYCIN 04403766405 No Longer Active Jae Morgan MD Active PREDNISONE 20 MG ORAL TABLET 1 tab twice daily for 3 day, then one daily for three days PREDNISONE 78500253543 No Longer Active Jae Morgan MD Active SINGULAIR 10 MG ORAL TABLET 1 pill by mouth every evening for breathing. 2014 MONTELUKAST SODIUM 62927053846 Active Meenu Villarrealnader JOELN Active TYLENOL 325 MG ORAL TABLET 3 by mouth q4h as needed ACETAMINOPHEN 12315068556 Active Harinder Hernandez DO Active POTASSIUM CHLORIDE ER 10 MEQ ORAL TABLET EXTENDED RELEASE take 1 tab po daily POTASSIUM CHLORIDE 38090279381 No Longer Active Harinder Hernandez DO Active PREDNISONE 20 MG ORAL TABLET 1 TID x 2 days, then 1 BID x 3 days, then 1 Daily x 3 days, then stop PREDNISONE 57396056066 No Longer Active Jillina Frazell YEAST TENDER Active LEVAQUIN 500 MG ORAL TABLET 1 tablet by mouth daily LEVOFLOXACIN 62263806363 No Longer Active Jillina Frazell YEAST TENDER Active NEURONTIN 300 MG ORAL CAPSULE 1 cap by mouth three times daily for restless leg GABAPENTIN 53155758923 No Longer Active Harinder Hernandez DO Active BENZONATATE 100 MG ORAL CAPSULE 1 cap po TID PRN BENZONATATE 00040873904 No Longer Active Harinder Hernandez DO Active MONTELUKAST SODIUM 10 MG ORAL TABLET 1 tab po in the evening 2014 MONTELUKAST SODIUM 11452011664 No Longer Active Harinder Hernandez DO Active MUPIROCIN 2 % EXTERNAL OINTMENT apply to affected area BID x 14 days MUPIROCIN 18407851352 No Longer Active Harinder Hernandez DO Active TYLENOL EXTRA STRENGTH 500 MG ORAL TABLET as needed ACETAMINOPHEN 28586244444 No Longer Active Harinder Hernandez DO Active PREDNISONE 10 MG ORAL TABLET 1 tab po daily PREDNISONE 92421034508 No Longer Active Harinder Hernandez DO Active PREDNISONE 20 MG ORAL TABLET 2 tabs daily for 4 days, 1 tab daily for 4 days, 1/2 tab daily for 4 days PREDNISONE 37693972361 No Longer Active Harinder Hernandez DO Active AZITHROMYCIN 250 MG ORAL TABLET 2 po qd x 1 day, then 1 po qd x 4 days 04/06 AZITHROMYCIN 77641637065 No Longer Active Harinder Hernandez DO Active PREDNISONE 20 MG ORAL TABLET 3 tabs today, then 1 tab twice daily for 3 day, then one daily for three days PREDNISONE 97186601829 No Longer Active Harinder Hernandez DO Active NIFEDIAC CC 30 MG ORAL TABLET EXTENDED RELEASE 24 HOUR 1 tablet daily for raynaud's syndrome NIFEDIPINE 01900545580 No Longer Active Tawnya Pardo MA Active AMBIEN 10 MG ORAL TABLET 1/2 tab by mouth at bedtime as needed for sleep 2013 ZOLPIDEM TARTRATE 90354426224 Active Meenu Alejo LPN Active CLONAZEPAM 1 MG ORAL TABLET 1 tablet at bedtime for insomnia and restless legs CLONAZEPAM 44064773369 Active Harinder Hernandez DO Active CLONAZEPAM 0.5 MG ORAL TABLET 1 tab po daily CLONAZEPAM 64857800991 No Longer Active Harinder Hernandez DO Active PREDNISONE 10 MG ORAL TABLET 1 tablet daily for COPD PREDNISONE 77506589404 Active Kortney Mccain Active PROAIR HFA 108 (90 Base) MCG/ACT INHALATION AEROSOL SOLUTION 2 puffs four times a day as needed ALBUTEROL SULFATE 24164882582 Active Harinder Hernandez DO Active FLOVENT HFA 110 MCG/ACT INHALATION AEROSOL 2 puffs inhaled b.i.d. FLUTICASONE PROPIONATE HFA 88473095087 Active Kortney Mccain Active ACIPHEX 20 MG ORAL TABLET DELAYED RELEASE 1 tab po daily RABEPRAZOLE SODIUM 03288251152 Active Kaylah Newberry Active CLONAZEPAM 0.5 MG ORAL TABLET 1 tab po daily CLONAZEPAM 0.5 MG ORAL TABLET 255785 CLONAZEPAM Inactive PREDNISONE 20 MG ORAL TABLET 3 tabs today, then 1 tab twice daily for 3 day, then one daily for three days PREDNISONE 20 MG ORAL TABLET 531194 PREDNISONE Inactive PREDNISONE 20 MG ORAL TABLET 2 tabs daily for 4 days, 1 tab daily for 4 days, 1/2 tab daily for 4 days PREDNISONE 20 MG ORAL TABLET 641041 PREDNISONE Inactive PREDNISONE 10 MG ORAL TABLET 1 tab po daily PREDNISONE 10 MG ORAL TABLET 037313 PREDNISONE Inactive TYLENOL EXTRA STRENGTH 500 MG ORAL TABLET as needed TYLENOL EXTRA STRENGTH 500 MG ORAL TABLET 263329 ACETAMINOPHEN Inactive MUPIROCIN 2 % EXTERNAL OINTMENT apply to affected area BID x 14 days MUPIROCIN 2 % EXTERNAL OINTMENT 045952 MUPIROCIN Inactive MONTELUKAST SODIUM 10 MG ORAL TABLET 1 tab po in the evening 2014 MONTELUKAST SODIUM 10 MG ORAL TABLET 822334 MONTELUKAST SODIUM Inactive BENZONATATE 100 MG ORAL CAPSULE 1 cap po TID PRN BENZONATATE 100 MG ORAL CAPSULE 949059 BENZONATATE Inactive NEURONTIN 300 MG ORAL CAPSULE 1 cap by mouth three times daily for restless leg NEURONTIN 300 MG ORAL CAPSULE 896275 GABAPENTIN Inactive LEVAQUIN 500 MG ORAL TABLET 1 tablet by mouth daily LEVAQUIN 500 MG ORAL TABLET 533362 LEVOFLOXACIN Inactive PREDNISONE 20 MG ORAL TABLET 1 TID x 2 days, then 1 BID x 3 days, then 1 Daily x 3 days, then stop PREDNISONE 20 MG ORAL TABLET 662615 PREDNISONE Inactive POTASSIUM CHLORIDE ER 10 MEQ ORAL TABLET EXTENDED RELEASE take 1 tab po daily POTASSIUM CHLORIDE ER 10 MEQ ORAL TABLET EXTENDED RELEASE POTASSIUM CHLORIDE Inactive PREDNISONE 20 MG ORAL TABLET 1 tab twice daily for 3 day, then one daily for three days PREDNISONE 20 MG ORAL TABLET 981958 PREDNISONE Inactive TESSALON PERLES 100 MG ORAL CAPSULE 1 to 2 tablets by mouth 3 times daily as needed for cough TESSALON PERLES 100 MG ORAL CAPSULE 090721 BENZONATATE Inactive POTASSIUM CHLORIDE ER 10 MEQ ORAL CAPSULE EXTENDED RELEASE 1 capsule by mouth daily POTASSIUM CHLORIDE ER 10 MEQ ORAL CAPSULE EXTENDED RELEASE POTASSIUM CHLORIDE Inactive NITROSTAT 0.4 MG SUBLINGUAL TABLET SUBLINGUAL 1 tab under tongueas needed for chest pain ( may take 3 total, 5 min apart, then call 911) NITROSTAT 0.4 MG SUBLINGUAL TABLET SUBLINGUAL 562328 NITROGLYCERIN Inactive LOVASTATIN 40 MG ORAL TABLET 1 pill by mouth nightly for cholesterol LOVASTATIN 40 MG ORAL TABLET 615722 LOVASTATIN Inactive CEFDINIR 300 MG ORAL CAPSULE take 1 cap po bid x 10 days CEFDINIR 300 MG ORAL CAPSULE 785566 CEFDINIR Inactive ACEBUTOLOL HCL 200 MG ORAL CAPSULE 1 cap in the morning and 2 caps in the evening ACEBUTOLOL HCL 200 MG ORAL CAPSULE 286555 ACEBUTOLOL HCL Inactive VENTOLIN HFA 108 (90 Base) MCG/ACT INHALATION AEROSOL SOLUTION 2 -4 puffs four times a day PRN VENTOLIN HFA 108 (90 Base) MCG/ ACT INHALATION AEROSOL SOLUTION ALBUTEROL SULFATE Inactive LEVAQUIN 500 MG ORAL TABLET Take 1 tab po daily x 8 days LEVAQUIN 500 MG ORAL TABLET 678366 LEVOFLOXACIN Inactive PREDNISONE 20 MG ORAL TABLET 2 tabs daily for 4 days, 1 tab daily for 4 days, 1/2 tab daily for 4 days PREDNISONE 20 MG ORAL TABLET 229250 PREDNISONE Inactive LOVASTATIN 40 MG ORAL TABLET Take 1 tab po every hs LOVASTATIN 40 MG ORAL TABLET 406491 LOVASTATIN Inactive DILAUDID 2 MG ORAL TABLET Take 1/2 tab po every 4 hours as needed for pain DILAUDID 2 MG ORAL TABLET 650306 HYDROMORPHONE HCL Inactive AMITRIPTYLINE HCL 25 MG ORAL TABLET 1 q hs prn AMITRIPTYLINE HCL 25 MG ORAL TABLET 104415 AMITRIPTYLINE HCL Inactive MECLIZINE HCL 25 MG ORAL TABLET 1 tablet three times daily for 3 days, then 1/ 2 tab three times daily for 3 days. MECLIZINE HCL 25 MG ORAL TABLET 515683 MECLIZINE HCL Inactive AMLODIPINE BESYLATE 5 MG ORAL TABLET Take 1 tab po daily AMLODIPINE BESYLATE 5 MG ORAL TABLET 778563 AMLODIPINE BESYLATE Inactive TOPIRAMATE 25 MG ORAL TABLET 1 tab po BID TOPIRAMATE 25 MG ORAL TABLET 501842 TOPIRAMATE Inactive PREDNISONE 20 MG ORAL TABLET 1 tablet twice daily for 2 days, then 1 tablet once daily for 2 days PREDNISONE 20 MG ORAL TABLET 644880 PREDNISONE Inactive PREDNISONE 20 MG ORAL TABLET 1 tab twice daily for 3 day, then one daily for three days PREDNISONE 20 MG ORAL TABLET 379050 PREDNISONE Inactive NIFEDIPINE ER 30 MG ORAL TABLET EXTENDED RELEASE 24 HOUR 1 daily NIFEDIPINE ER 30 MG ORAL TABLET EXTENDED RELEASE 24 HOUR NIFEDIPINE Inactive AMLODIPINE BESYLATE 5 MG ORAL TABLET 1 tablet by mouth daily 2016 AMLODIPINE BESYLATE 5 MG ORAL TABLET 107714 AMLODIPINE BESYLATE Inactive LASIX 20 MG ORAL TABLET 1 tablet by mouth every morning LASIX 20 MG ORAL TABLET 181107 FUROSEMIDE Inactive POTASSIUM CHLORIDE ER 10 MEQ ORAL CAPSULE EXTENDED RELEASE 1 capsule BID 2016 POTASSIUM CHLORIDE ER 10 MEQ ORAL CAPSULE EXTENDED RELEASE POTASSIUM CHLORIDE Inactive POTASSIUM CHLORIDE 20 MEQ ORAL PACKET 1 tab po q day POTASSIUM CHLORIDE 20 MEQ ORAL PACKET 5900028 POTASSIUM CHLORIDE Inactive AZITHROMYCIN 250 MG ORAL TABLET 2 po qd x 1 day, then 1 po qd x 4 days 04/06 AZITHROMYCIN 250 MG ORAL TABLET 144959 AZITHROMYCIN Inactive AZITHROMYCIN 250 MG ORAL TABLET 2 po qd x 1 day, then 1 po qd x 4 days 12/30 AZITHROMYCIN 250 MG ORAL TABLET 257160 AZITHROMYCIN Inactive PREDNISONE 20 MG ORAL TABLET 2 po qd x 5 days PREDNISONE 20 MG ORAL TABLET 808836 PREDNISONE Inactive Vital Signs Date Name Value [...] 3.2 mmol/L 3.5-5.2 sodium, serum 140 mmol/L 281-702 3146/08/21 sodium, serum 140 mmol/L 208-582 4203/08/21 urea nitrogen, blood 11 mg/dL 7-18 creatinine, [...] ... - Chemistry sodium, serum 141 mmol/L 539-540 9997/08/07 creatinine, serum 0.97 mg/dL 0.60-1.30 alanine aminotransferase [...] 1.40 mg/dL 0.00-1.00 cholesterol, serum 192 mg/dL 895-900 6753/10/19 triglyceride, serum, fasting 71 mg/dL 30-200 HDL cholesterol, serum 72 mg/dL 32-60 Lab Report: THEOPHYLLINE - Toxicology theophylline level, serum 3.1 ug/mL 10.0-20.0 Encounters Code Encounter Date Provider Facility CPT-65664 Level 3 Est. Patient 15:14:45 CHILD CARE TEACHER Harinder Cr [facility] CPT-57867 Level 4 Est. Patient 14:45:25 CDT [facility] CPT-17058 Level 4 Est. Patient 09:15:13 CDT [facility] CPT-03622 Level 3 Est. Patient 11:51:58 CDT Harinder Hernandez [facility] CPT-55364 Level 3 Est. Patient 11:30:05 CDT Harinder Hernandez [facility] CPT-36301 Level 4 Est. Patient 10:19:23 CDT Harinder Hernandez [facility] CPT-46961 Level 3 Est. Patient 09:58:58 CDT Harinder Hernandez [facility] CPT-24456 Level 3 Est. Patient 12:37:[address] [facility] CPT-04878 Level 3 Est. Patient 18:37:17 CDT Harinder Hernandez [facility] CPT-67635 Level 4 Est. Patient 11:15:54 CDT Nettie Newberry APRN [facility] CPT-18324 Level 3 Est. Patient 16:42:[address] [facility] CPT-68107 Level 3 Est. Patient 15:03:[address] [facility] CPT-49631 Level 3 Est. Patient 15:03:20 CDT Harinder Hernandez [facility] CPT-06058 Level 3 Est. Patient 12:14:34 CDT Harinder Hernandez [facility] CPT-76100 Level 3 Est. Patient 13:47:15 CDT Harinder Hernandez [facility] CPT-88435 Level 3 Est. Patient 14:08:24 CDT Harinder Hernandez [facility] CPT-41523 Level 3 Est. Patient 10:07:15 CDT Harinder Cr [facility] CPT-70023 Level 3 Est. Patient 10:06:59 CDT Harinder Cr [facility] CPT-33120 Level 3 Est. Patient 15:53:29 CDT Jae Morgan MD [facility] CPT-04143 Level 3 Est. Patient 17:19:04 CDT Harinder Hernandez [facility] CPT-49648 Level 3 Est. Patient 11:13:01 CDT Harinder Hernandez [facility] CPT-47252 Level 3 Est. Patient 09:03:58 CDT Harinder Hernandez [facility] CPT-71021 Level 3 Est. Patient 14:46:45 CHILD CARE TEACHER Harinder Hernandez [facility] CPT-75344 Level 3 Est. Patient 09:35:49 CHILD CARE TEACHER Harinder Hernandez [facility] CPT-38269 Level 3 Est. Patient 09:29:37 CHILD CARE TEACHER Harinder Hernandez [facility] CPT-87727 Level 3 Est. Patient 15:51:07 CDT Harinder Hernandez [facility] CPT-42498 Level 3 Est. Patient 18:13:13 CDT Harinder Hernandez [facility] CPT-69723 Level 3 Est. Patient 10:44:19 CDT Harinder Cr [facility] CPT-35550 Level 4 Est. Patient 10:07:19 CHILD CARE TEACHER Harinder Hernandez [facility] CPT-19527 Level 3 Est. Patient 15:59:32 CHILD CARE TEACHER Harinder Shaye [facility] Procedures Code Procedure Name Date Entry Date Standard Description CPT-31581 Abd compl w upright - XRAY USE ONLY 14:48:09 CDT 02/18 CPT-13020 Port a cath flush 13:46:05 CDT CPT-10966 Hip, complete, 2-3 views - XRAY USE ONLY 10:28:40 CDT CPT-35211 BMP - LAB USE ONLY 16:45:09 CHILD CARE TEACHER CPT-11771 Port a cath flush 12:00:13 CHILD CARE TEACHER CPT-TCMM Transitional Care Mgmt-Moderate 11:20:16 CHILD CARE TEACHER CPT-10022 First Vx - Ix admin for Medicare patients 17:35:15 CDT CPT-03262 Fluzone Preservative Free Intramuscular Suspension 17:35 :15 CDT CPT-98306 Microalbumin - LAB USE ONLY 11:52:05 CDT CPT-TCMM Transitional Care Mgmt-Moderate 11:33:57 CDT CPT-34792 No Charge Offi Visit 14:11:29 CDT CPT-51238 Magnesium - LAB USE ONLY 10:45:44 CDT CPT-98472 Lipid - LAB USE ONLY 10:45:44 CDT CPT-05734 CBC - LAB USE ONLY 10:45:44 CDT CPT-18130 Venipuncture Draw Fee 10:45:43 CDT CPT-10446 Venipuncture Draw Fee 18:21:27 CDT CPT-JTINJ Asp/Joint Injection 18:38:04 CDT CPT-69899 Immunization Each Additional Inj 17:38:04 CDT CPT-50918 Immunization Single Admin 17:38:04 CDT CPT-96374 Prevnar 13 17:38:04 CDT CPT-59993 Fluzone Quadrivalent preservative free (>=3yrs.) 17:38: 04 CDT CPT-02993 No Charge Offi Visit 11:14:03 CDT CPT-95922 Chest 2V Frontal and Lat 14:00:18 CDT CPT-OV Office Visit 16:10:28 CDT CPT-JTINJ Asp/Joint Injection 09:03:57 CDT CPT-Cryo Cryotherapy 09:35:49 CHILD CARE TEACHER CPT-JTINJ Asp/Joint Injection 09:34:45 CHILD CARE TEACHER CPT-J2930 Solu Medrol 125 mg (Methyl Prednisolone Sodium Succinate) 20:37:27 CDT CPT-83157 Abx/Therapy Injection 20:37:27 CDT CPT-46874 Port a cath flush 08:15:51 CDT CPT-97060 Port a cath flush 09:54:16 CDT CPT-62837 Port a cath flush 09:38:02 CDT CPT-13477 Port a cath flush 11:00:27 CHILD CARE TEACHER
--- OUTSIDE RECORDS SUMMARY | 2017-12-29 00:39 | XMS REPORT | Clinical Summary ---
Author Author Admin, QIE Organization [facility] Address Unknown Phone Unavailable Allergies, Adverse [...] W David DO IBUPROFEN Critical Active Harinder Hernandez DO [...] Comment Standard Description Annotate Asthma 493.90 Active Harindre Hernandez DO Asthma, unspecified C O P [...] Generic Name NDC Status Provider Patient Instruction LEVAQUIN 500 MG ORAL TABS Take 1 tab po daily x 8 days LEVOFLOXACIN 51170544861 Active Tawnya Pardo MA Active PREDNISONE 20 MG TAB 2 tabs daily for 4 days, 1 tab daily for 4 days, 1/2 tab daily for 4 days PREDNISONE 00013259397 Active Harinder Hernandez DO Active LOVASTATIN 40 MG ORAL TABS Take 1 tab po every hs LOVASTATIN 69184878932 Active Johny Dwakins MD Active AMLODIPINE BESYLATE 5 MG ORAL TABS Take 1 tab po daily AMLODIPINE BESYLATE 10031844497 Active Tawnya Pardo MA Active VENTOLIN HFA 108 (90 BASE) MCG/ACT AERS 2 -4 puffs four times a day PRN 2013 ALBUTEROL SULFATE 11738313504 No Longer Active Jeri Sosa RPT,RMA Active DILAUDID 2 MG ORAL TABS Take 1/2 tab po every 4 hours as needed for pain 2014 HYDROMORPHONE HCL 20560980685 Active Harinder Hernandez DO Active ACEBUTOLOL HCL 200 MG CAPS 1 cap in the morning and 2 caps in the evening ACEBUTOLOL HCL 10064643888 No Longer Active Harinder Hernandez DO Active CEFDINIR 300 MG ORAL CAPS take 1 cap po bid x 10 days CEFDINIR 47866180625 No Longer Active Harinder Hernandez DO Active AMITRIPTYLINE HCL 25 MG ORAL TABS 1 q hs prn AMITRIPTYLINE HCL 51082418569 Active Tawnya Pardo MA Active LOVASTATIN 40 MG TABS 1 pill by mouth nightly for cholesterol LOVASTATIN 84679036420 No Longer Active Nettie Newberry APRN Active NITROSTAT 0.4 MG SUBL 1 tab under tongueas needed for chest pain ( may take 3 total, 5 min apart, then call 911) NITROGLYCERIN 42236484397 No Longer Active Nettie Newberry APRN Active POTASSIUM CHLORIDE CR 10 MEQ CPCR 1 capsule by mouth daily 02/14 POTASSIUM CHLORIDE 89535272035 No Longer Active Nettie Newberry APRN Active TESSALON PERLES 100 MG CAP 1 to 2 tablets by mouth 3 times daily as needed for cough BENZONATATE 95102958587 No Longer Active Nettie Newberry APRN Active THEOPHYLLINE ER 200 MG ORAL [id number] Take 1 tab every 12 hours THEOPHYLLINE 66208869146 Active Tawnya Pardo MA Active PREDNISONE 20 MG TAB 2 po qd x 5 days PREDNISONE 67725751544 No Longer Active Jae Morgan MD Active AZITHROMYCIN 250 MG TABS 2 po qd x 1 day, then 1 po qd x 4 days AZITHROMYCIN 78632978861 No Longer Active Jae Morgan MD Active PREDNISONE 20 MG TAB 1 tab twice daily for 3 day, then one daily for three days PREDNISONE 85657193415 No Longer Active Jae Morgan MD Active MECLIZINE HCL 25 MG TAB 1 tablet three times daily for 3 days, then 1/2 tab three times daily for 3 days. MECLIZINE HCL 98684454551 Active Harinder Hernandez DO Active SINGULAIR 10 MG TABS 1 pill by mouth every evening for breathing. 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 FINANCE COUNSELOR Active LEVAQUIN 500 MG TAB 1 tablet by mouth daily LEVOFLOXACIN 12227728859 No Longer Active Jillina Frazell CERTIFIED PERSONAL FINANCE COUNSELOR Active NEURONTIN 300 MG CAP 1 cap by mouth three times daily for restless leg 06/22 GABAPENTIN 83256830386 No Longer Active Harinder Hernandez DO Active BENZONATATE 100 MG CAPS 1 cap po TID PRN BENZONATATE 93338141866 No Longer Active Harinder Hernandez DO Active MONTELUKAST SODIUM 10 MG TABS 1 tab po in the evening MONTELUKAST SODIUM 95634847298 No Longer Active Harinder Hernandez DO Active MUPIROCIN 2 % OINT apply to affected area BID x 14 days MUPIROCIN 50595652411 No Longer Active Harinder Hernandez DO Active TYLENOL EXTRA STRENGTH 500 MG TABS as needed ACETAMINOPHEN 74163218369 No Longer Active Harinder Hernandez DO Active PREDNISONE 10 MG TABS 1 tab po daily PREDNISONE 28835288717 No Longer Active Harinder Hernandez DO Active PREDNISONE 20 MG TAB 2 tabs daily for 4 days, 1 tab daily for 4 days, 1/2 tab daily for 4 days PREDNISONE 58350321795 No Longer Active Harinder W David DO Active AZITHROMYCIN 250 MG TABS 2 po qd x 1 day, then 1 po qd x 4 days AZITHROMYCIN 54655171214 No Longer Active Harinder Hernandez DO Active PREDNISONE 20 MG TAB 3 tabs today, then 1 tab twice daily for 3 day, then one daily for three days PREDNISONE 75337651384 No Longer Active Harinder Hernandez DO Active NIFEDIAC CC 30 MG [id number] 1 tablet daily for raynaud's syndrome NIFEDIPINE 54533904093 No Longer Active Tawnya Pardo MA Active AMBIEN 10 MG TAB 1/2 tab by mouth at bedtime as needed for sleep ZOLPIDEM TARTRATE 67971397417 Active Harinder Hernandez DO Active CLONAZEPAM 1 MG TABS 1 tablet at bedtime for insomnia and restless legs 09/14 CLONAZEPAM 43035997039 Active Harinder Hernandez DO Active CLONAZEPAM 0.5 MG TABS 1 tab po daily CLONAZEPAM 81500805068 No Longer Active Harinder Hernandez DO Active PREDNISONE 10 MG TAB 1 tablet daily for COPD PREDNISONE 09387743927 Active Tawnya Pardo MA Active PROAIR HFA 108 (90 BASE) MCG/ACT AERS 2 puffs four times a day as needed 2012 ALBUTEROL SULFATE 78344447541 Active Tawnya Pardo MA Active FLOVENT HFA 110 MCG/ACT AERO 2 puffs inhaled b.i.d. FLUTICASONE PROPIONATE HFA 62507110732 Active Tawnya Pardo MA Active EPIPEN 0.3 MG/0.3ML RUIEL DIRECTED EPINEPHRINE Active Demetrius JOHNSON Active ACIPHEX 20 MG TBEC 1 tab po daily RABEPRAZOLE SODIUM 58197638764 Active Tawnya Pardo MA Active TOPIRAMATE 25 MG TABS 1 tab po BID TOPIRAMATE 28797017539 Active Tawnya Pardo MA Active CLONAZEPAM 0.5 MG TABS 1 tab po daily CLONAZEPAM 0.5 MG TABS 151522 CLONAZEPAM Inactive PREDNISONE 20 MG TAB 3 tabs today, then 1 tab twice daily for 3 day, then one daily for three days PREDNISONE 20 MG TAB 471876 PREDNISONE Inactive PREDNISONE 20 MG TAB 2 tabs daily for 4 days, 1 tab daily for 4 days, 1/2 tab daily for 4 days PREDNISONE 20 MG TAB 394860 PREDNISONE Inactive PREDNISONE 10 MG TABS 1 tab po daily PREDNISONE 10 MG TABS 875918 PREDNISONE Inactive TYLENOL EXTRA STRENGTH 500 MG TABS as needed TYLENOL EXTRA STRENGTH 500 MG TABS 832499 ACETAMINOPHEN Inactive MUPIROCIN 2 % OINT apply to affected area BID x 14 days MUPIROCIN 2 % OINT 154371 MUPIROCIN Inactive MONTELUKAST SODIUM 10 MG TABS 1 tab po in the evening MONTELUKAST SODIUM 10 MG TABS 392198 MONTELUKAST SODIUM Inactive BENZONATATE 100 MG CAPS 1 cap po TID PRN BENZONATATE 100 MG CAPS 433130 BENZONATATE Inactive NEURONTIN 300 MG CAP 1 cap by mouth three times daily for restless leg 06/22 NEURONTIN 300 MG CAP 080066 GABAPENTIN Inactive LEVAQUIN 500 MG TAB 1 tablet by mouth daily LEVAQUIN 500 MG TAB 127478 LEVOFLOXACIN Inactive PREDNISONE 20 MG TAB 1 TID x 2 days, then 1 BID x 3 days, then 1 Daily x 3 days, then stop PREDNISONE 20 MG TAB 107131 PREDNISONE Inactive POTASSIUM CHLORIDE ER 10 MEQ CR-TABS take 1 tab po daily POTASSIUM CHLORIDE ER 10 MEQ CR-TABS POTASSIUM CHLORIDE Inactive PREDNISONE 20 MG TAB 1 tab twice daily for 3 day, then one daily for three days PREDNISONE 20 MG TAB 322563 PREDNISONE Inactive TESSALON PERLES 100 MG CAP 1 to 2 tablets by mouth 3 times daily as needed for cough TESSALON PERLES 100 MG CAP 625553 BENZONATATE Inactive POTASSIUM CHLORIDE CR 10 MEQ [...] nightly for cholesterol LOVASTATIN 40 MG TABS 355462 LOVASTATIN Inactive CEFDINIR 300 MG ORAL CAPS take 1 cap po bid x 10 days CEFDINIR 300 MG ORAL CAPS 588923 CEFDINIR Inactive ACEBUTOLOL HCL 200 MG CAPS 1 cap in the morning and 2 caps in the evening ACEBUTOLOL HCL 200 MG CAPS 527132 ACEBUTOLOL HCL Inactive VENTOLIN HFA 108 (90 BASE) MCG/ACT AERS 2 -4 puffs four times a day PRN 2013 VENTOLIN HFA 108 (90 BASE) MCG/ACT AERS ALBUTEROL SULFATE Inactive AZITHROMYCIN 250 MG TABS 2 po qd x 1 day, then 1 po qd x 4 days AZITHROMYCIN 250 MG TABS 3893391 AZITHROMYCIN Inactive AZITHROMYCIN 250 MG TABS 2 po qd x 1 day, then 1 po qd x 4 days AZITHROMYCIN 250 MG TABS 4485978 AZITHROMYCIN Inactive PREDNISONE 20 MG TAB 2 po qd x 5 days PREDNISONE 20 MG TAB 833677 PREDNISONE Inactive Vital Signs Date Name Value [...] Panel - Chemistry sodium, serum 138 mmol/L 925-717 0173/09/24 potassium, serum 3.5 mmol/L 3.5-5.2 chloride, serum [...] [phone] Encounters Code Encounter Date Provider Facility CPT-[id number] Level 3 Est. Patient 15:03:36 CDT Harinder Hernandez [facility] CPT-28600 Level 3 Est. Patient 15:03:20 CDT Harinder Hernandez [facility] CPT-55954 Level 3 Est. Patient 12:14:34 CDT Harinder Hernandez [facility] CPT-40970 Level 3 Est. Patient 13:47:15 CDT aHrinder Hernandez [facility] CPT-86845 Level 3 Est. Patient 14:08:24 CDT Harinder Hernandez [facility] CPT-71209 Level 3 Est. Patient 10:07:15 CDT Harinder Hernandez [facility] CPT-82407 Level 3 Est. Patient 10:06:59 CDT Harinder Hernandez [facility] CPT-34606 Level 3 Est. Patient 15:53:29 CDT Jae Morgan MD [facility] CPT-05219 Level 3 Est. Patient 17:19:04 CDT Harinder Hernandez [facility] CPT-93180 Level 3 Est. Patient 11:13:01 CDT Harinder Hernandez [facility] CPT-21463 Level 3 Est. Patient 09:03:58 CDT Harinder Hernandez [facility] CPT-15021 Level 3 Est. 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 CPT-78582 Level 3 Est. 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 CPT-16374 Level 3 Est. Patient 15:51:07 CDT Harinder Hernandez [facility] CPT-72821 Level 3 Est. Patient 18:13:13 CDT Harinder Hernandez [facility] CPT-92126 Level 3 Est. Patient 10:44:19 CDT Harinder Hernandez [facility] CPT-03563 Level 4 Est. 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 CPT-05875 Level 3 Est. 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 Harinder Cr [facility] Procedures Code Procedure Name Date Entry Date Standard Description CPT-72717 Immunization Each Additional Inj 17:38:04 CDT CPT-06488 Immunization Single Admin 17:38:04 CDT CPT-80972 Prevnar 13 17:38:04 CDT CPT-60461 Fluzone Quadrivalent preservative free (>=3yrs.) 17:38: 04 CDT CPT-15497 No Charge Offi Visit 11:14:03 CDT CPT-56064 Chest 2V Frontal and Lat 14:00:18 CDT CPT-OV Office Visit 16:10:28 CDT CPT-JTINJ Asp/Joint Injection 09:03:57 CDT CPT-Cryo Cryotherapy 09:35:49 SCREW MACHINE OPERATOR SING[employer]LE CPT-JTINJ Asp/Joint Injection 09:34:45 SCREW MACHINE OPERATOR SINGLE [employer]LE CPT-J2930 Solu Medrol 125 mg (Methyl Prednisolone Sodium Succinate) 20:37:27 CDT CPT-01007 Abx/Therapy Injection 20:37:27 CDT CPT-40717 Port a cath flush 08:15:51 CDT CPT-56757 Port a cath flush 09:54:16 CDT CPT-41236 Port a cath flush 09:38:02 CDT CPT-13879 Port a cath flush 11:00:27 SCREW MACHINE OPERATOR SINGLE [employer]LE
--- OUTSIDE RECORDS SUMMARY | 2017-12-29 00:40 | XMS REPORT | Clinical Summary ---
Author Author Admin, QIE Organization [facility] Address Unknown Phone Unavailable Allergies, Adverse Reactions, [...] Greater trochanteric bursitis, left 726.5 Resolved Harinder Hernanedz DO Enthesopathy of hip region Dysphagia 787.20 [...] Jae Morgan MD Diarrhea ICD-787.91 Inactive Jae oMrgan MD Benign positional vertigo ICD-386.11 Inactive Harinder [...] Generic Name NDC Status Provider Patient Instruction TOPAMAX 25 MG ORAL TABS 1 tab po BID TOPIRAMATE 48854020332 Active Kortney Mccain Active FLUTICASONE PROPIONATE 50 MCG/ACT SUSP 2 sprays per nostril daily PRN Allergies FLUTICASONE PROPIONATE 79644380456 Active Kortney Mccain Active ALBUTEROL SULFATE 0.083 % NEBU SOLN 1 vial neb q 4hrs PRN Wheezing Dx: J44.1 ALBUTEROL SULFATE 52805471413 Active Kortney Mccain Active AMLODIPINE BESYLATE 5 MG TABS 1 tablet by mouth daily AMLODIPINE BESYLATE 68537704949 Active Harinder Hernandez DO Active NIFEDIPINE ER 30 MG ORAL [id number] 1 daily NIFEDIPINE 61491518508 No Longer Active Harinder Hernandez DO Active POTASSIUM CHLORIDE 20 MEQ ORAL PACK Take 1 tablet by mouth daily POTASSIUM CHLORIDE 42460920626 Active Ciera Pimentel Active FLOVENT HFA 110 MCG/ACT AERO 2 puffs inhaled b.i.d. FLUTICASONE PROPIONATE HFA 27637196916 Active Harinder Hernandez DO Active POTASSIUM CHLORIDE CR 10 MEQ CPCR 1 capsule by mouth daily POTASSIUM CHLORIDE 99348339474 Active Harinder Hernandez DO Active EPIPEN 2-BRUNA 0.3 MG/0.3ML INJ SOAJ 1 INJ NEEDED EPINEPHRINE 28503384691 Active Harinder Hernandez DO Active PREDNISONE 20 MG TAB 1 tab twice daily for 3 day, then one daily for three days PREDNISONE 01176591452 No Longer Active Harinder Hernandez DO Active PREDNISONE 20 MG TAB 1 tablet twice daily for 2 days, then 1 tablet once daily for 2 days PREDNISONE 00489328937 No Longer Active Harinder Hernandez DO Active ASMANEX 120 METERED DOSES 220 MCG/INH INH AEPB 2 puffs orally twice daily MOMETASONE FUROATE 47303174614 Active Jeri Sosa RPT,RMA Active TOPIRAMATE 25 MG TABS 1 tab po BID TOPIRAMATE 08070506672 No Longer Active Nettie Newberry [employer] Active AMLODIPINE BESYLATE 5 MG ORAL TABS Take 1 tab po daily AMLODIPINE BESYLATE 24394955053 No Longer Active Nettie Rohith [employer] Active MECLIZINE HCL 25 MG TAB 1 tablet three times daily for 3 days, then 1/2 tab three times daily for 3 days. MECLIZINE HCL 11162793232 No Longer Active Nettie Newberry MAHENDRA Active AMITRIPTYLINE HCL 25 MG ORAL TABS 1 q hs prn AMITRIPTYLINE HCL 10154174450 No Longer Active Nettieog Newberry APRN Active DILAUDID 2 MG ORAL TABS Take 1/2 tab po every 4 hours as needed for pain 2014 HYDROMORPHONE HCL 21265600781 No Longer Active Nettie eNwberry APRN Active CLOPIDOGREL BISULFATE 75 MG ORAL TABS 1 tab by mouth once daily CLOPIDOGREL BISULFATE 56261950529 Active Harinder Hernandez DO Active ATORVASTATIN CALCIUM 10 MG ORAL TABS 1 at bedtime ATORVASTATIN CALCIUM 57191649980 Active Tawnya Pardo MA Active LOVASTATIN 40 MG ORAL TABS Take 1 tab po every hs LOVASTATIN 68367505201 No Longer Active Harinder Hernandez DO Active PREDNISONE 20 MG TAB 2 tabs daily for 4 days, 1 tab daily for 4 days, 1/2 tab daily for 4 days PREDNISONE 96262050483 No Longer Active Harinder Hernandez DO Active LEVAQUIN 500 MG ORAL TABS Take 1 tab po daily x 8 days LEVOFLOXACIN 91591500513 No Longer Active Harinder Hernandez DO Active VENTOLIN HFA 108 (90 BASE) MCG/ACT AERS 2 -4 puffs four times a day PRN 2013 ALBUTEROL SULFATE 25592051178 No Longer Active Jeri Sosa RPT,RMA Active ACEBUTOLOL HCL 200 MG CAPS 1 cap in the morning and 2 caps in the evening ACEBUTOLOL HCL 27697509035 No Longer Active Harinder Hernandez DO Active CEFDINIR 300 MG ORAL CAPS take 1 cap po bid x 10 days CEFDINIR 15070332460 No Longer Active Harinder Hernandez DO Active LOVASTATIN 40 MG TABS 1 pill by mouth nightly for cholesterol LOVASTATIN 23440895496 No Longer Active Nettie Newberry APRN Active NITROSTAT 0.4 MG SUBL 1 tab under tongueas needed for chest pain ( may take 3 total, 5 min apart, then call 911) NITROGLYCERIN 69345268485 No Longer Active Nettie Newberry APRN Active POTASSIUM CHLORIDE CR 10 MEQ CPCR 1 capsule by mouth daily 02/14 POTASSIUM CHLORIDE 95858332920 No Longer Active Nettie Newberry APRN Active TESSALON PERLES 100 MG CAP 1 to 2 tablets by mouth 3 times daily as needed for cough BENZONATATE 36098344238 No Longer Active Nettie Newberry APRN Active THEOPHYLLINE ER 200 MG ORAL [id number] Take 1 tab every 12 hours THEOPHYLLINE 53040006787 Active Tawnya Pardo MA Active PREDNISONE 20 MG TAB 2 po qd x 5 days PREDNISONE 78340358511 No Longer Active Jae Morgan MD Active AZITHROMYCIN 250 MG TABS 2 po qd x 1 day, then 1 po qd x 4 days AZITHROMYCIN 59832760872 No Longer Active Jae Morgan MD Active PREDNISONE 20 MG TAB 1 tab twice daily for 3 day, then one daily for three days PREDNISONE 66799900912 No Longer Active Jae Morgan MD Active SINGULAIR 10 MG TABS 1 pill by mouth every evening for breathing. MONTELUKAST SODIUM 47537277700 Active Tawnya Pardo MA Active TYLENOL 325 MG TAB 3 by mouth q4h as needed ACETAMINOPHEN 72104993644 Active Harinder Hernandez DO Active POTASSIUM CHLORIDE ER 10 MEQ CR-TABS take 1 tab po daily POTASSIUM CHLORIDE 81623979476 No Longer Active Harinder Hernandez DO Active PREDNISONE 20 MG TAB 1 TID x 2 days, then 1 BID x 3 days, then 1 Daily x 3 days, then stop PREDNISONE 14768416079 No Longer Active Jillina Frazell [employer] Active LEVAQUIN 500 MG TAB 1 tablet by mouth daily LEVOFLOXACIN 96101650535 No Longer Active Jillina Frazell [employer] Active NEURONTIN 300 MG CAP 1 cap by mouth three times daily for restless leg 06/22 GABAPENTIN 40587706719 No Longer Active Harinder Hernandez DO Active BENZONATATE 100 MG CAPS 1 cap po TID PRN BENZONATATE 78502464039 No Longer Active Harinder Hernandez DO Active MONTELUKAST SODIUM 10 MG TABS 1 tab po in the evening MONTELUKAST SODIUM 92642562540 No Longer Active Harinder Hernandez DO Active MUPIROCIN 2 % OINT apply to affected area BID x 14 days MUPIROCIN 56710658717 No Longer Active Harinder Hernandez DO Active TYLENOL EXTRA STRENGTH 500 MG TABS as needed ACETAMINOPHEN 91180512852 No Longer Active Harinder Hernandez DO Active PREDNISONE 10 MG TABS 1 tab po daily PREDNISONE 72540632761 No Longer Active Harinder Hernandez DO Active PREDNISONE 20 MG TAB 2 tabs daily for 4 days, 1 tab daily for 4 days, 1/2 tab daily for 4 days PREDNISONE 31590387392 No Longer Active Harinder Hernandez DO Active AZITHROMYCIN 250 MG TABS 2 po qd x 1 day, then 1 po qd x 4 days AZITHROMYCIN 57043356849 No Longer Active Harinder Hernandez DO Active PREDNISONE 20 MG TAB 3 tabs today, then 1 tab twice daily for 3 day, then one daily for three days PREDNISONE 22741768884 No Longer Active Harinder Hernandez DO Active NIFEDIAC CC 30 MG [id number] 1 tablet daily for raynaud's syndrome NIFEDIPINE 70036136161 No Longer Active Tawnya Pardo MA Active AMBIEN 10 MG TAB 1/2 tab by mouth at bedtime as needed for sleep ZOLPIDEM TARTRATE 57237529639 Active Kortney Mccain Active CLONAZEPAM 1 MG TABS 1 tablet at bedtime for insomnia and restless legs 09/14 CLONAZEPAM 05801603531 Active Harinder Hernandez DO Active CLONAZEPAM 0.5 MG TABS 1 tab po daily CLONAZEPAM 91482656148 No Longer Active Harinder Hernandez DO Active PREDNISONE 10 MG TAB 1 tablet daily for COPD PREDNISONE 31868868824 Active Ciera Pimentel Active PROAIR HFA 108 (90 BASE) MCG/ACT AERS 2 puffs four times a day as needed 2012 ALBUTEROL SULFATE 31851747741 Active Harinder Hernandez DO Active FLOVENT HFA 110 MCG/ACT AERO 2 puffs inhaled b.i.d. FLUTICASONE PROPIONATE HFA 28484251138 Active Kortney Mccain Active ACIPHEX 20 MG TBEC 1 tab po daily RABEPRAZOLE SODIUM 62749050980 Active Kaylah Newberry Active CLONAZEPAM 0.5 MG TABS 1 tab po daily CLONAZEPAM 0.5 MG TABS 313166 CLONAZEPAM Inactive PREDNISONE 20 MG TAB 3 tabs today, then 1 tab twice daily for 3 day, then one daily for three days PREDNISONE 20 MG TAB 612727 PREDNISONE Inactive PREDNISONE 20 MG TAB 2 tabs daily for 4 days, 1 tab daily for 4 days, 1/2 tab daily for 4 days PREDNISONE 20 MG TAB 928940 PREDNISONE Inactive PREDNISONE 10 MG TABS 1 tab po daily PREDNISONE 10 MG TABS 698445 PREDNISONE Inactive TYLENOL EXTRA STRENGTH 500 MG TABS as needed TYLENOL EXTRA STRENGTH 500 MG TABS ACETAMINOPHEN Inactive MUPIROCIN 2 % OINT apply to affected area BID x 14 days MUPIROCIN 2 % OINT 696464 MUPIROCIN Inactive MONTELUKAST SODIUM 10 MG TABS 1 tab po in the evening MONTELUKAST SODIUM 10 MG TABS 20010818 MONTELUKAST SODIUM Inactive BENZONATATE 100 MG CAPS 1 cap po TID PRN BENZONATATE 100 MG CAPS 19730321 BENZONATATE Inactive NEURONTIN 300 MG CAP 1 cap by mouth three times daily for restless leg 06/22 NEURONTIN 300 MG CAP 071779 GABAPENTIN Inactive LEVAQUIN 500 MG TAB 1 tablet by mouth daily LEVAQUIN 500 MG TAB 128430 LEVOFLOXACIN Inactive PREDNISONE 20 MG TAB 1 TID x 2 days, then 1 BID x 3 days, then 1 Daily x 3 days, then stop PREDNISONE 20 MG TAB 462473 PREDNISONE Inactive POTASSIUM CHLORIDE ER 10 MEQ CR-TABS take 1 tab po daily POTASSIUM CHLORIDE ER 10 MEQ CR-TABS POTASSIUM CHLORIDE Inactive PREDNISONE 20 MG TAB 1 tab twice daily for 3 day, then one daily for three days PREDNISONE 20 MG TAB 278906 PREDNISONE Inactive TESSALON PERLES 100 MG CAP 1 to 2 tablets by mouth 3 times daily as needed for cough TESSALON PERLES 100 MG CAP 051013 BENZONATATE Inactive POTASSIUM CHLORIDE CR 10 MEQ CPCR 1 capsule by mouth daily 02/14 POTASSIUM CHLORIDE CR 10 MEQ CPCR POTASSIUM CHLORIDE Inactive NITROSTAT 0.4 MG SUBL 1 tab under tongueas needed for chest pain ( may take 3 total, 5 min apart, then call 911) NITROSTAT 0.4 MG SUBL 012597 NITROGLYCERIN Inactive LOVASTATIN 40 MG TABS 1 pill by mouth nightly for cholesterol LOVASTATIN 40 MG TABS 542202 LOVASTATIN Inactive CEFDINIR 300 MG ORAL CAPS take 1 cap po bid x 10 days CEFDINIR 300 MG ORAL CAPS 464770 CEFDINIR Inactive ACEBUTOLOL HCL 200 MG CAPS 1 cap in the morning and 2 caps in the evening ACEBUTOLOL HCL 200 MG CAPS 217729 ACEBUTOLOL HCL Inactive VENTOLIN HFA 108 (90 BASE) MCG/ACT AERS 2 -4 puffs four times a day PRN 2013 VENTOLIN HFA 108 (90 BASE) MCG/ACT AERS ALBUTEROL SULFATE Inactive LEVAQUIN 500 MG ORAL TABS Take 1 tab po daily x 8 days LEVAQUIN 500 MG ORAL TABS 598945 LEVOFLOXACIN Inactive PREDNISONE 20 MG TAB 2 tabs daily for 4 days, 1 tab daily for 4 days, 1/2 tab daily for 4 days PREDNISONE 20 MG TAB 909658 PREDNISONE Inactive LOVASTATIN 40 MG ORAL TABS Take 1 tab po every hs LOVASTATIN 40 MG ORAL TABS 632843 LOVASTATIN Inactive DILAUDID 2 MG ORAL TABS Take 1/2 tab po every 4 hours as needed for pain 2014 DILAUDID 2 MG ORAL TABS 397375 HYDROMORPHONE HCL Inactive AMITRIPTYLINE HCL 25 MG ORAL TABS 1 q hs prn AMITRIPTYLINE HCL 25 MG ORAL TABS 728660 AMITRIPTYLINE HCL Inactive MECLIZINE HCL 25 MG TAB 1 tablet three times daily for 3 days, then 1/2 tab three times daily for 3 days. MECLIZINE HCL 25 MG TAB 067322 MECLIZINE HCL Inactive AMLODIPINE BESYLATE 5 MG ORAL TABS Take 1 tab po daily AMLODIPINE BESYLATE 5 MG ORAL TABS 138278 AMLODIPINE BESYLATE Inactive TOPIRAMATE 25 MG TABS 1 tab po BID TOPIRAMATE 25 MG TABS 712410 TOPIRAMATE Inactive PREDNISONE 20 MG TAB 1 tablet twice daily for 2 days, then 1 tablet once daily for 2 days PREDNISONE 20 MG TAB 845503 PREDNISONE Inactive PREDNISONE 20 MG TAB 1 tab twice daily for 3 day, then one daily for three days PREDNISONE 20 MG TAB 284926 PREDNISONE Inactive NIFEDIPINE ER 30 MG ORAL [id number] 1 daily NIFEDIPINE ER 30 MG ORAL [id number] NIFEDIPINE Inactive AZITHROMYCIN 250 MG TABS 2 po qd x 1 day, then 1 po qd x 4 days AZITHROMYCIN 250 MG TABS 0038255 AZITHROMYCIN Inactive AZITHROMYCIN 250 MG TABS 2 po qd x 1 day, then 1 po qd x 4 days AZITHROMYCIN 250 MG TABS 8794165 AZITHROMYCIN Inactive PREDNISONE 20 MG TAB 2 po qd x 5 days PREDNISONE 20 MG TAB 454977 PREDNISONE Inactive Vital Signs Date Name Value [...] Panel - Chemistry sodium, serum 137 mmol/L 568-377 9776/01/03 potassium, serum 3.4 mmol/L 3.5-5.2 chloride, serum [...] Magnesium - Chemistry cholesterol, serum 180 mg/dL 333-745 6859/08/08 triglyceride, serum, fasting 92 mg/dL 30-200 HDL cholesterol, serum 66 mg/dL 32-96 LDL cholesterol, serum 96 mg/dL 0-130 sodium, serum 142 mmol/L 696-034 1633/08/08 carbon dioxide, venous blood 27.4 mmol/L 21.0-32.0 [...] 10.0-20.0 Encounters Code Encounter Date Provider Facility CPT-11209 Level 3 Est. Patient 09:58:58 CDT Harinder Shaye [facility] CPT-97680 Level 3 Est. Patient 12:37:21 CDT Harinder Cr [facility] CPT-87161 Level 3 Est. Patient 18:37:17 CDT Harinder Cr [facility] CPT-34824 Level 4 Est. Patient 11:15:54 CDT Nettie Rohith [facility] CPT-39446 Level 3 Est. Patient 16:42:24 CDT Harinder Cr [facility] CPT-61848 Level 3 Est. Patient 15:03:36 CDT Harinder Shaye [facility] CPT-99709 Level 3 Est. Patient 15:03:20 CDT Harinder Shaye [facility] CPT-96314 Level 3 Est. Patient 12:14:34 CDT Harinder Cr [facility] CPT-91785 Level 3 Est. Patient 13:47:15 CDT Harinder Cr [facility] CPT-57859 Level 3 Est. Patient 14:08:24 CDT Harinder Cr [facility] CPT-49346 Level 3 Est. Patient 10:07:15 CDT Harinder Hernandez [facility] CPT-28057 Level 3 Est. Patient 10:06:59 CDT Harinder Hernandez [facility] CPT-03869 Level 3 Est. Patient 15:53:29 CDT Jae Morgan [facility] CPT-13041 Level 3 Est. Patient 17:19:04 CDT Harinder Hernandez [facility] CPT-70433 Level 3 Est. Patient 11:13:01 CDT Harinder Hernandez [facility] CPT-25232 Level 3 Est. Patient 09:03:58 CDT Harinder Hernandez [facility] CPT-38484 Level 3 Est. Patient 14:46:45 SIGHT MOUNTER Harinder Hernandez [facility] CPT-33853 Level 3 Est. Patient 09:35:49 SIGHT MOUNTER Harinder Hernandez [facility] CPT-45490 Level 3 Est. Patient 09:29:37 SIGHT MOUNTER Harinder Hernandez [facility] CPT-22537 Level 3 Est. Patient 15:51:07 CDT Harinder Hernandez [facility] CPT-83713 Level 3 Est. Patient 18:13:13 CDT Harinder Hernandez [facility] CPT-20326 Level 3 Est. Patient 10:44:19 CDT Harinder Hernandez [facility] CPT-25993 Level 4 Est. Patient 10:07:19 SIGHT MOUNTER Harinder Cr [facility] CPT-91044 Level 3 Est. Patient 15:59:32 SIGHT MOUNTER Harinder Hernandez [facility] Procedures Code Procedure Name Date Entry Date Standard Description CPT-71204 BMP - LAB USE ONLY 16:45:09 SIGHT MOUNTER CPT-52781 Port a cath flush 12:00:13 SIGHT MOUNTER CPT-TCMM Transitional Care Mgmt-Moderate 11:20:16 SIGHT MOUNTER CPT-02483 First Vx - Ix admin for Medicare patients 17:35:15 CDT CPT-20717 Fluzone Preservative Free Intramuscular Suspension 17:35 :15 CDT CPT-33730 Microalbumin - LAB USE ONLY 11:52:05 CDT CPT-TCMM Transitional Care Mgmt-Moderate 11:33:57 CDT CPT-37045 No Charge Offi Visit 14:11:29 CDT CPT-10742 Magnesium - LAB USE ONLY 10:45:44 CDT CPT-85197 Lipid - LAB USE ONLY 10:45:44 CDT CPT-98619 CBC - LAB USE ONLY 10:45:44 CDT CPT-07985 Venipuncture Draw Fee 10:45:43 CDT CPT-86201 Venipuncture Draw Fee 18:21:27 CDT CPT-JTINJ Asp/Joint Injection 18:38:04 CDT CPT-11066 Immunization Each Additional Inj 17:38:04 CDT CPT-84225 Immunization Single Admin 17:38:04 CDT CPT-28352 Prevnar 13 17:38:04 CDT CPT-21508 Fluzone Quadrivalent preservative free (>=3yrs.) 17:38: 04 CDT CPT-94044 No Charge Offi Visit 11:14:03 CDT CPT-36662 Chest 2V Frontal and Lat 14:00:18 CDT CPT-OV Office Visit 16:10:28 CDT CPT-JTINJ Asp/Joint Injection 09:03:57 CDT CPT-Cryo Cryotherapy 09:35:49 SIGHT MOUNTER CPT-JTINJ Asp/Joint Injection 09:34:45 SIGHT MOUNTER CPT-J2930 Solu Medrol 125 mg (Methyl Prednisolone Sodium Succinate) 20:37:27 CDT CPT-58011 Abx/Therapy Injection 20:37:27 CDT CPT-92754 Port a cath flush 08:15:51 CDT CPT-60145 Port a cath flush 09:54:16 CDT CPT-23647 Port a cath flush 09:38:02 CDT CPT-03378 Port a cath flush 11:00:27 SIGHT MOUNTER
--- OUTSIDE RECORDS SUMMARY | 2017-12-29 00:41 | XMS REPORT | Clinical Summary ---
Author Author Admin, QIE Organization [facility] Address Unknown Phone Unavailable Allergies, Adverse Reactions, [...] tablet once daily for 2 days PREDNISONE 92399930719 Active Harinder Hernandez DO Active ASMANEX 120 METERED DOSES 220 MCG/INH INH AEPB 2 puffs orally twice daily MOMETASONE FUROATE 56839886934 Active Jeri Sosa RPT,RMA Active NIFEDIPINE ER 30 MG ORAL [id number] 1 daily NIFEDIPINE 55115753023 Active Tawnya Pardo MA Active TOPIRAMATE 25 MG TABS 1 tab po BID TOPIRAMATE 75998419783 No Longer Active Nettei Newberry MAHENDRA Active AMLODIPINE BESYLATE 5 MG ORAL TABS Take 1 tab po daily AMLODIPINE BESYLATE 09325033113 No Longer Active Nettie Newberry MAHENDRA Active MECLIZINE HCL 25 MG TAB 1 tablet three times daily for 3 days, then 1/2 tab three times daily for 3 days. MECLIZINE HCL 49423198093 No Longer Active Nettie Newberry MARKET INVESTIGATOR Active AMITRIPTYLINE HCL 25 MG ORAL TABS 1 q hs prn AMITRIPTYLINE HCL 85592963885 No Longer Active Nettie Newberry MAHENDRA Active DILAUDID 2 MG ORAL TABS Take 1/2 tab po every 4 hours as needed for pain 2014 HYDROMORPHONE HCL 26036715885 No Longer Active Nettie Newberry APRN Active CLOPIDOGREL BISULFATE 75 MG ORAL TABS 1 tab by mouth once daily CLOPIDOGREL BISULFATE 81854047468 Active Jeri Sosa RPT,RMA Active ATORVASTATIN CALCIUM 10 MG ORAL TABS 1 at bedtime ATORVASTATIN CALCIUM 08938540890 Active Jeri Sosa RPT,RMA Active LOVASTATIN 40 MG ORAL TABS Take 1 tab po every hs LOVASTATIN 94427997158 No Longer Active Harinder Hernandez DO Active PREDNISONE 20 MG TAB 2 tabs daily for 4 days, 1 tab daily for 4 days, 1/2 tab daily for 4 days PREDNISONE 41306677565 No Longer Active Harinder Hernandez DO Active LEVAQUIN 500 MG ORAL TABS Take 1 tab po daily x 8 days LEVOFLOXACIN 89804301799 No Longer Active Harinder Hernandez DO Active VENTOLIN HFA 108 (90 BASE) MCG/ACT AERS 2 -4 puffs four times a day PRN 2013 ALBUTEROL SULFATE 60886388389 No Longer Active Jeri Sosa RPT,RMA Active ACEBUTOLOL HCL 200 MG CAPS 1 cap in the morning and 2 caps in the evening ACEBUTOLOL HCL 53390323434 No Longer Active Harinder Hernandez DO Active CEFDINIR 300 MG ORAL CAPS take 1 cap po bid x 10 days CEFDINIR 80009803716 No Longer Active Harinder Hernandez DO Active LOVASTATIN 40 MG TABS 1 pill by mouth nightly for cholesterol LOVASTATIN 86309814271 No Longer Active Nettie Newberry APRN Active NITROSTAT 0.4 MG SUBL 1 tab under tongueas needed for chest pain ( may take 3 total, 5 min apart, then call 911) NITROGLYCERIN 28455890823 No Longer Active Nettie Newberry APRN Active POTASSIUM CHLORIDE CR 10 MEQ CPCR 1 capsule by mouth daily 02/14 POTASSIUM CHLORIDE 34121217197 No Longer Active Nettie Newberry APRN Active TESSALON PERLES 100 MG CAP 1 to 2 tablets by mouth 3 times daily as needed for cough BENZONATATE 17702218484 No Longer Active Nettie Newberry APRN Active THEOPHYLLINE ER 200 MG ORAL [id number] Take 1 tab every 12 hours THEOPHYLLINE 14841598043 Active Jeri Sosa RPT,RMA Active PREDNISONE 20 MG TAB 2 po qd x 5 days PREDNISONE 28587171979 No Longer Active Jae Morgan MD Active AZITHROMYCIN 250 MG TABS 2 po qd x 1 day, then 1 po qd x 4 days AZITHROMYCIN 23939857352 No Longer Active Jae Morgan MD Active PREDNISONE 20 MG TAB 1 tab twice daily for 3 day, then one daily for three days PREDNISONE 73003646117 No Longer Active Jae Morgan MD Active SINGULAIR 10 MG TABS 1 pill by mouth every evening for breathing. MONTELUKAST SODIUM 25398979756 Active Tawnya Pardo MA Active TYLENOL 325 MG TAB 3 by mouth q4h as needed ACETAMINOPHEN 84652139971 Active Harinder Hernandez DO Active POTASSIUM CHLORIDE ER 10 MEQ CR-TABS take 1 tab po daily POTASSIUM CHLORIDE 07204405822 No Longer Active Harinder Hernandez DO Active PREDNISONE 20 MG TAB 1 TID x 2 days, then 1 BID x 3 days, then 1 Daily x 3 days, then stop PREDNISONE 26384707417 No Longer Active Jillina Frazell MARKET INVESTIGATOR Active LEVAQUIN 500 MG TAB 1 tablet by mouth daily LEVOFLOXACIN 24799649821 No Longer Active Jillina Frazell MARKET INVESTIGATOR Active NEURONTIN 300 MG CAP 1 cap by mouth three times daily for restless leg 06/22 GABAPENTIN 47530958490 No Longer Active Harinder Hernandez DO Active BENZONATATE 100 MG CAPS 1 cap po TID PRN BENZONATATE 86327487576 No Longer Active Harinder Hernandez DO Active MONTELUKAST SODIUM 10 MG TABS 1 tab po in the evening MONTELUKAST SODIUM 90824029108 No Longer Active Harinder Hernandez DO Active MUPIROCIN 2 % OINT apply to affected area BID x 14 days MUPIROCIN 27913207592 No Longer Active Harinder Hernandez DO Active TYLENOL EXTRA STRENGTH 500 MG TABS as needed ACETAMINOPHEN 50948593620 No Longer Active Harinder Hernandez DO Active PREDNISONE 10 MG TABS 1 tab po daily PREDNISONE 37230536655 No Longer Active Harinder Hernandez DO Active PREDNISONE 20 MG TAB 2 tabs daily for 4 days, 1 tab daily for 4 days, 1/2 tab daily for 4 days PREDNISONE 00802659554 No Longer Active Harinder Hernandez DO Active AZITHROMYCIN 250 MG TABS 2 po qd x 1 day, then 1 po qd x 4 days AZITHROMYCIN 98558732576 No Longer Active Harinder Hernandez DO Active PREDNISONE 20 MG TAB 3 tabs today, then 1 tab twice daily for 3 day, then one daily for three days PREDNISONE 95303725425 No Longer Active Harinder Hernandez DO Active NIFEDIAC CC 30 MG [id number] 1 tablet daily for raynaud's syndrome NIFEDIPINE 37090490988 No Longer Active Tawnya Pardo MA Active AMBIEN 10 MG TAB 1/2 tab by mouth at bedtime as needed for sleep ZOLPIDEM TARTRATE 38158688493 Active Harinder Hernandez DO Active CLONAZEPAM 1 MG TABS 1 tablet at bedtime for insomnia and restless legs 09/14 CLONAZEPAM 00655114377 Active Jeri Sosa RPT,RMA Active CLONAZEPAM 0.5 MG TABS 1 tab po daily CLONAZEPAM 37739078196 No Longer Active Harinder Hernandez DO Active PREDNISONE 10 MG TAB 1 tablet daily for COPD PREDNISONE 34531795101 Active Tawnya Pardo MA Active PROAIR HFA 108 (90 BASE) MCG/ACT AERS 2 puffs four times a day as needed 2012 ALBUTEROL SULFATE 79186106879 Active Tawnya Pardo MA Active FLOVENT HFA 110 MCG/ACT AERO 2 puffs inhaled b.i.d. FLUTICASONE PROPIONATE HFA 99441829480 Active Tawnya Pardo MA Active EPIPEN 0.3 MG/0.3ML URIEL DIRECTED EPINEPHRINE Active Jeri Sosa RPT,RMA Active ACIPHEX 20 MG TBEC 1 tab po daily RABEPRAZOLE SODIUM 49480577805 Active Tawnya Pardo MA Active CLONAZEPAM 0.5 MG TABS 1 tab po daily CLONAZEPAM 0.5 MG TABS 772039 CLONAZEPAM Inactive PREDNISONE 20 MG TAB 3 tabs today, then 1 tab twice daily for 3 day, then one daily for three days PREDNISONE 20 MG TAB 299677 PREDNISONE Inactive PREDNISONE 20 MG TAB 2 tabs daily for 4 days, 1 tab daily for 4 days, 1/2 tab daily for 4 days PREDNISONE 20 MG TAB 396493 PREDNISONE Inactive PREDNISONE 10 MG TABS 1 tab po daily PREDNISONE 10 MG TABS 764042 PREDNISONE Inactive TYLENOL EXTRA STRENGTH 500 MG TABS as needed TYLENOL EXTRA STRENGTH 500 MG TABS 187318 ACETAMINOPHEN Inactive MUPIROCIN 2 % OINT apply to affected area BID x 14 days MUPIROCIN 2 % OINT 628133 MUPIROCIN Inactive MONTELUKAST SODIUM 10 MG TABS 1 tab po in the evening MONTELUKAST SODIUM 10 MG TABS 20010818 MONTELUKAST SODIUM Inactive BENZONATATE 100 MG CAPS 1 cap po TID PRN BENZONATATE 100 MG CAPS 19730321 BENZONATATE Inactive NEURONTIN 300 MG CAP 1 cap by mouth three times daily for restless leg 06/22 NEURONTIN 300 MG CAP 330170 GABAPENTIN Inactive LEVAQUIN 500 MG TAB 1 tablet by mouth daily LEVAQUIN 500 MG TAB 981848 LEVOFLOXACIN Inactive PREDNISONE 20 MG TAB 1 TID x 2 days, then 1 BID x 3 days, then 1 Daily x 3 days, then stop PREDNISONE 20 MG TAB 636466 PREDNISONE Inactive POTASSIUM CHLORIDE ER 10 MEQ CR-TABS take 1 tab po daily POTASSIUM CHLORIDE ER 10 MEQ CR-TABS POTASSIUM CHLORIDE Inactive PREDNISONE 20 MG TAB 1 tab twice daily for 3 day, then one daily for three days PREDNISONE 20 MG TAB 216825 PREDNISONE Inactive TESSALON PERLES 100 MG CAP 1 to 2 tablets by mouth 3 times daily as needed for cough TESSALON PERLES 100 MG CAP 610172 BENZONATATE Inactive POTASSIUM CHLORIDE CR 10 MEQ [...] nightly for cholesterol LOVASTATIN 40 MG TABS 960399 LOVASTATIN Inactive CEFDINIR 300 MG ORAL CAPS take 1 cap po bid x 10 days CEFDINIR 300 MG ORAL CAPS 068623 CEFDINIR Inactive ACEBUTOLOL HCL 200 MG CAPS 1 cap in the morning and 2 caps in the evening ACEBUTOLOL HCL 200 MG CAPS 780191 ACEBUTOLOL HCL Inactive VENTOLIN HFA 108 (90 BASE) MCG/ACT AERS 2 -4 puffs four times a day PRN 2013 VENTOLIN HFA 108 (90 BASE) MCG/ACT AERS ALBUTEROL SULFATE Inactive LEVAQUIN 500 MG ORAL TABS Take 1 tab po daily x 8 days LEVAQUIN 500 MG ORAL TABS 204015 LEVOFLOXACIN Inactive PREDNISONE 20 MG TAB 2 tabs daily for 4 days, 1 tab daily for 4 days, 1/2 tab daily for 4 days PREDNISONE 20 MG TAB 544052 PREDNISONE Inactive LOVASTATIN 40 MG ORAL TABS Take 1 tab po every hs LOVASTATIN 40 MG ORAL TABS 583150 LOVASTATIN Inactive DILAUDID 2 MG ORAL TABS Take 1/2 tab po every 4 hours as needed for pain 2014 DILAUDID 2 MG ORAL TABS 005915 HYDROMORPHONE HCL Inactive AMITRIPTYLINE HCL 25 MG ORAL TABS 1 q hs prn AMITRIPTYLINE HCL 25 MG ORAL TABS 790945 AMITRIPTYLINE HCL Inactive MECLIZINE HCL 25 MG TAB 1 tablet three times daily for 3 days, then 1/2 tab three times daily for 3 days. MECLIZINE HCL 25 MG TAB 386102 MECLIZINE HCL Inactive AMLODIPINE BESYLATE 5 MG ORAL TABS Take 1 tab po daily AMLODIPINE BESYLATE 5 MG ORAL TABS 363364 AMLODIPINE BESYLATE Inactive TOPIRAMATE 25 MG TABS 1 tab po BID TOPIRAMATE 25 MG TABS 850197 TOPIRAMATE Inactive AZITHROMYCIN 250 MG TABS 2 po qd x 1 day, then 1 po qd x 4 days AZITHROMYCIN 250 MG TABS 9904436 AZITHROMYCIN Inactive AZITHROMYCIN 250 MG TABS 2 po qd x 1 day, then 1 po qd x 4 days AZITHROMYCIN 250 MG TABS 0320341 AZITHROMYCIN Inactive PREDNISONE 20 MG TAB 2 po qd x 5 days PREDNISONE 20 MG TAB 724736 PREDNISONE Inactive Vital Signs Date Name Value [...] Panel - Chemistry sodium, serum 138 mmol/L 709-727 2721/09/24 potassium, serum 3.5 mmol/L 3.5-5.2 chloride, serum [...] 142-424 Encounters Code Encounter Date Provider Facility CPT-94102 Level 3 Est. Patient 12:37:21 CDT [facility] CPT-32784 Level 3 Est. Patient 18:37:17 CDT [facility] CPT-20507 Level 4 Est. Patient 11:15:54 CDT Nettie Newberry [facility] CPT-96018 Level 3 Est. Patient 16:42:24 CDT [facility] CPT-16624 Level 3 Est. Patient 15:03:36 CDT [facility] CPT-67097 Level 3 Est. Patient 15:03:20 CDT [facility] CPT-53157 Level 3 Est. Patient 12:14:34 CDT Harinder Hernandez [facility] CPT-96683 Level 3 Est. Patient 13:47:15 CDT Harinder Hernandez [facility] CPT-86472 Level 3 Est. Patient 14:08:24 CDT Harinder Hernandez [facility] CPT-29516 Level 3 Est. Patient 10:07:15 CDT [facility] CPT-63060 Level 3 Est. Patient 10:06:59 CDT [facility] CPT-25003 Level 3 Est. Patient 15:53:29 CDT Jae Morgan MD [facility] CPT-90257 Level 3 Est. Patient 17:19:04 CDT Harinder Hernandez [facility] CPT-46540 Level 3 Est. Patient 11:13:01 CDT Harinder Hernandez [facility] CPT-30965 Level 3 Est. Patient 09:03:58 CDT [facility] CPT-02485 Level 3 Est. Patient 14:46:45 MANAGER [place] Harinder Hernandez [facility] CPT-61343 Level 3 Est. Patient 09:35:49 MANAGER [place] [facility] CPT-59010 Level 3 Est. Patient 09:29:37 MANAGER [place] Harinder Hernandez [facility] CPT-45998 Level 3 Est. Patient 15:51:07 CDT [facility] CPT-44352 Level 3 Est. Patient 18:13:13 CDT Harinder Hernandez [facility] CPT-79936 Level 3 Est. Patient 10:44:19 CDT Harinder Cr [facility] CPT-94080 Level 4 Est. Patient 10:07:19 MANAGER [place] Harinder Hernandez [facility] CPT-15973 Level 3 Est. Patient 15:59:32 MANAGER [place] [facility] Procedures Code Procedure Name Date Entry Date Standard Description CPT-59538 Venipuncture Draw Fee 18:21:27 CDT CPT-JTINJ Asp/Joint Injection 18:38:04 CDT CPT-76768 Immunization Each Additional Inj 17:38:04 CDT CPT-01612 Immunization Single Admin 17:38:04 CDT CPT-76148 Prevnar 13 17:38:04 CDT CPT-52595 Fluzone Quadrivalent preservative free (>=3yrs.) 17:38: 04 CDT CPT-18600 No Charge Offi Visit 11:14:03 CDT CPT-57515 Chest 2V Frontal and Lat 14:00:18 CDT CPT-OV Office Visit 16:10:28 CDT CPT-JTINJ Asp/Joint Injection 09:03:57 CDT CPT-Cryo Cryotherapy 09:35:49 MANAGER [place] CPT-JTINJ Asp/Joint Injection 09:34:45 MANAGER [place] CPT-J2930 Solu Medrol 125 mg (Methyl Prednisolone Sodium Succinate) 20:37:27 CDT CPT-34677 Abx/Therapy Injection 20:37:27 CDT CPT-95762 Port a cath flush 08:15:51 CDT CPT-24509 Port a cath flush 09:54:16 CDT CPT-72551 Port a cath flush 09:38:02 CDT CPT-44725 Port a cath flush 11:00:27 MANAGER [place]
--- OUTSIDE RECORDS SUMMARY | 2017-12-29 00:42 | XMS REPORT | Clinical Summary ---
[...] Active Harinder Hernandez DO VALIUM Critical Active Hairnder Hernandez DO DEMEROL Critical Active Harinder Hernandez [...] MG/0.3ML INJ SOAJ 1 INJ NEEDED EPINEPHRINE 07903162390 Active Tawnya Pardo MA Active PREDNISONE 20 MG TAB 1 tab twice daily for 3 day, then one daily for three days PREDNISONE 05412936211 No Longer Active Harinder Hernandez DO Active PREDNISONE 20 MG TAB 1 tablet twice daily for 2 days, then 1 tablet once daily for 2 days PREDNISONE 83889082566 No Longer Active Harinder Hernandez DO Active ASMANEX 120 METERED DOSES 220 MCG/INH INH AEPB 2 puffs orally twice daily MOMETASONE FUROATE 88478571675 Active Jeri Sosa RPT,RMA Active NIFEDIPINE ER 30 MG ORAL [id number] 1 daily NIFEDIPINE 95256858380 Active Tawnya Pardo MA Active TOPIRAMATE 25 MG TABS 1 tab po BID TOPIRAMATE 13413697509 No Longer Active Nettie Newberry APRN Active AMLODIPINE BESYLATE 5 MG ORAL TABS Take 1 tab po daily AMLODIPINE BESYLATE 01388642248 No Longer Active Nettie Newberry APRN Active MECLIZINE HCL 25 MG TAB 1 tablet three times daily for 3 days, then 1/2 tab three times daily for 3 days. MECLIZINE HCL 89309392408 No Longer Active Nettie Newberry APRN Active AMITRIPTYLINE HCL 25 MG ORAL TABS 1 q hs prn AMITRIPTYLINE HCL 11335704200 No Longer Active Nettie Newberry APRN Active DILAUDID 2 MG ORAL TABS Take 1/2 tab po every 4 hours as needed for pain 2014 HYDROMORPHONE HCL 62947501184 No Longer Active Nettie Newberry APRN Active CLOPIDOGREL BISULFATE 75 MG ORAL TABS 1 tab by mouth once daily CLOPIDOGREL BISULFATE 97442217421 Active Tawnya Pardo MA Active ATORVASTATIN CALCIUM 10 MG ORAL TABS 1 at bedtime ATORVASTATIN CALCIUM 84941941364 Active Tawnya Pardo MA Active LOVASTATIN 40 MG ORAL TABS Take 1 tab po every hs LOVASTATIN 29638550448 No Longer Active Harinder Hernandez DO Active PREDNISONE 20 MG TAB 2 tabs daily for 4 days, 1 tab daily for 4 days, 1/2 tab daily for 4 days PREDNISONE 65628021440 No Longer Active Harinder Hernandez DO Active LEVAQUIN 500 MG ORAL TABS Take 1 tab po daily x 8 days LEVOFLOXACIN 36602987799 No Longer Active Harinder Hernandez DO Active VENTOLIN HFA 108 (90 BASE) MCG/ACT AERS 2 -4 puffs four times a day PRN 2013 ALBUTEROL SULFATE 35091695694 No Longer Active Jeri Sosa RPT,RMA Active ACEBUTOLOL HCL 200 MG CAPS 1 cap in the morning and 2 caps in the evening ACEBUTOLOL HCL 78398941384 No Longer Active Harinder Hernandez DO Active CEFDINIR 300 MG ORAL CAPS take 1 cap po bid x 10 days CEFDINIR 54332867901 No Longer Active Harinder Hernandez DO Active LOVASTATIN 40 MG TABS 1 pill by mouth nightly for cholesterol LOVASTATIN 12927089833 No Longer Active Nettie Newberry APRN Active NITROSTAT 0.4 MG SUBL 1 tab under tongueas needed for chest pain ( may take 3 total, 5 min apart, then call 911) NITROGLYCERIN 01217025601 No Longer Active Nettie Newberry APRN Active POTASSIUM CHLORIDE CR 10 MEQ CPCR 1 capsule by mouth daily 02/14 POTASSIUM CHLORIDE 47629825053 No Longer Active Nettie Newberry APRN Active TESSALON PERLES 100 MG CAP 1 to 2 tablets by mouth 3 times daily as needed for cough BENZONATATE 84414558491 No Longer Active Nettie Newberry APRN Active THEOPHYLLINE ER 200 MG ORAL [id number] Take 1 tab every 12 hours THEOPHYLLINE 24662326166 Active Tawnya Pardo MA Active PREDNISONE 20 MG TAB 2 po qd x 5 days PREDNISONE 65300516668 No Longer Active Jae Morgan MD Active AZITHROMYCIN 250 MG TABS 2 po qd x 1 day, then 1 po qd x 4 days AZITHROMYCIN 55046706865 No Longer Active Jae Morgan MD Active PREDNISONE 20 MG TAB 1 tab twice daily for 3 day, then one daily for three days PREDNISONE 50143369647 No Longer Active Jae Morgan MD Active SINGULAIR 10 MG TABS 1 pill by mouth every evening for breathing. MONTELUKAST SODIUM 17003109294 Active Tawnya Pardo MA Active TYLENOL 325 MG TAB 3 by mouth q4h as needed ACETAMINOPHEN 93921065734 Active Harinder Hernandez DO Active POTASSIUM CHLORIDE ER 10 MEQ CR-TABS take 1 tab po daily POTASSIUM CHLORIDE 95601656423 No Longer Active Harinder Hernandez DO Active PREDNISONE 20 MG TAB 1 TID x 2 days, then 1 BID x 3 days, then 1 Daily x 3 days, then stop PREDNISONE 90434065888 No Longer Active John Montemayor APRN Active LEVAQUIN 500 MG TAB 1 tablet by mouth daily LEVOFLOXACIN 86982043488 No Longer Active Jillkvng Montemayor APRN Active NEURONTIN 300 MG CAP 1 cap by mouth three times daily for restless leg 06/22 GABAPENTIN 24386829558 No Longer Active Harinder Hernandez DO Active BENZONATATE 100 MG CAPS 1 cap po TID PRN BENZONATATE 04849508077 No Longer Active Harinder Hernandez DO Active MONTELUKAST SODIUM 10 MG TABS 1 tab po in the evening MONTELUKAST SODIUM 67124753701 No Longer Active Harinder Hernandez DO Active MUPIROCIN 2 % OINT apply to affected area BID x 14 days MUPIROCIN 05355097222 No Longer Active Harinder Hernandez DO Active TYLENOL EXTRA STRENGTH 500 MG TABS as needed ACETAMINOPHEN 26489047323 No Longer Active Harinder Hernandez DO Active PREDNISONE 10 MG TABS 1 tab po daily PREDNISONE 45124810982 No Longer Active Harinder Hernandez DO Active PREDNISONE 20 MG TAB 2 tabs daily for 4 days, 1 tab daily for 4 days, 1/2 tab daily for 4 days PREDNISONE 16374259233 No Longer Active Harinder Hernandez DO Active AZITHROMYCIN 250 MG TABS 2 po qd x 1 day, then 1 po qd x 4 days AZITHROMYCIN 68708981837 No Longer Active Harinder Hernandez DO Active PREDNISONE 20 MG TAB 3 tabs today, then 1 tab twice daily for 3 day, then one daily for three days PREDNISONE 72784663656 No Longer Active Harinder Hernandez DO Active NIFEDIAC CC 30 MG [id number] 1 tablet daily for raynaud's syndrome NIFEDIPINE 89274518712 No Longer Active Tawnya Pardo MA Active AMBIEN 10 MG TAB 1/2 tab by mouth at bedtime as needed for sleep ZOLPIDEM TARTRATE 71995296641 Active Harinder Hernandez DO Active CLONAZEPAM 1 MG TABS 1 tablet at bedtime for insomnia and restless legs 09/14 CLONAZEPAM 21426218075 Active Kaylah Newberry Active CLONAZEPAM 0.5 MG TABS 1 tab po daily CLONAZEPAM 91467270759 No Longer Active Harinder Hernandez DO Active PREDNISONE 10 MG TAB 1 tablet daily for COPD PREDNISONE 36229570981 Active Tawnya Pardo MA Active PROAIR HFA 108 (90 BASE) MCG/ACT AERS 2 puffs four times a day as needed 2012 ALBUTEROL SULFATE 72243322293 Active Tawnya Pardo MA Active FLOVENT HFA 110 MCG/ACT AERO 2 puffs inhaled b.i.d. FLUTICASONE PROPIONATE HFA 85715031617 Active Tawnya Pardo MA Active ACIPHEX 20 MG TBEC 1 tab po daily RABEPRAZOLE SODIUM 94010631466 Active Tawnya Pardo MA Active CLONAZEPAM 0.5 MG TABS 1 tab po daily CLONAZEPAM 0.5 MG TABS 994987 CLONAZEPAM Inactive PREDNISONE 20 MG TAB 3 tabs today, then 1 tab twice daily for 3 day, then one daily for three days PREDNISONE 20 MG TAB 368278 PREDNISONE Inactive PREDNISONE 20 MG TAB 2 tabs daily for 4 days, 1 tab daily for 4 days, 1/2 tab daily for 4 days PREDNISONE 20 MG TAB 854467 PREDNISONE Inactive PREDNISONE 10 MG TABS 1 tab po daily PREDNISONE 10 MG TABS 420267 PREDNISONE Inactive TYLENOL EXTRA STRENGTH 500 MG TABS as needed TYLENOL EXTRA STRENGTH 500 MG TABS 081815 ACETAMINOPHEN Inactive MUPIROCIN 2 % OINT apply to affected area BID x 14 days MUPIROCIN 2 % OINT 754113 MUPIROCIN Inactive MONTELUKAST SODIUM 10 MG TABS 1 tab po in the evening MONTELUKAST SODIUM 10 MG TABS 317548 MONTELUKAST SODIUM Inactive BENZONATATE 100 MG CAPS 1 cap po TID PRN BENZONATATE 100 MG CAPS 397317 BENZONATATE Inactive NEURONTIN 300 MG CAP 1 cap by mouth three times daily for restless leg 06/22 NEURONTIN 300 MG CAP 846692 GABAPENTIN Inactive LEVAQUIN 500 MG TAB 1 tablet by mouth daily LEVAQUIN 500 MG TAB 869798 LEVOFLOXACIN Inactive PREDNISONE 20 MG TAB 1 TID x 2 days, then 1 BID x 3 days, then 1 Daily x 3 days, then stop PREDNISONE 20 MG TAB 244157 PREDNISONE Inactive POTASSIUM CHLORIDE ER 10 MEQ CR-TABS take 1 tab po daily POTASSIUM CHLORIDE ER 10 MEQ CR-TABS POTASSIUM CHLORIDE Inactive PREDNISONE 20 MG TAB 1 tab twice daily for 3 day, then one daily for three days PREDNISONE 20 MG TAB 230389 PREDNISONE Inactive TESSALON PERLES 100 MG CAP 1 to 2 tablets by mouth 3 times daily as needed for cough TESSALON PERLES 100 MG CAP 369641 BENZONATATE Inactive POTASSIUM CHLORIDE CR 10 MEQ CPCR 1 capsule by mouth daily 02/14 POTASSIUM CHLORIDE CR 10 MEQ CPCR POTASSIUM CHLORIDE Inactive NITROSTAT 0.4 MG SUBL 1 tab under tongueas needed for chest pain ( may take 3 total, 5 min apart, then call 911) NITROSTAT 0.4 MG SUBL 832784 NITROGLYCERIN Inactive LOVASTATIN 40 MG TABS 1 pill by mouth nightly for cholesterol LOVASTATIN 40 MG TABS 854302 LOVASTATIN Inactive CEFDINIR 300 MG ORAL CAPS take 1 cap po bid x 10 days CEFDINIR 300 MG ORAL CAPS 795253 CEFDINIR Inactive ACEBUTOLOL HCL 200 MG CAPS 1 cap in the morning and 2 caps in the evening ACEBUTOLOL HCL 200 MG CAPS 617378 ACEBUTOLOL HCL Inactive VENTOLIN HFA 108 (90 BASE) MCG/ACT AERS 2 -4 puffs four times a day PRN 2013 VENTOLIN HFA 108 (90 BASE) MCG/ACT AERS ALBUTEROL SULFATE Inactive LEVAQUIN 500 MG ORAL TABS Take 1 tab po daily x 8 days LEVAQUIN 500 MG ORAL TABS 839730 LEVOFLOXACIN Inactive PREDNISONE 20 MG TAB 2 tabs daily for 4 days, 1 tab daily for 4 days, 1/2 tab daily for 4 days PREDNISONE 20 MG TAB 133606 PREDNISONE Inactive LOVASTATIN 40 MG ORAL TABS Take 1 tab po every hs LOVASTATIN 40 MG ORAL TABS 449847 LOVASTATIN Inactive DILAUDID 2 MG ORAL TABS Take 1/2 tab po every 4 hours as needed for pain 2014 DILAUDID 2 MG ORAL TABS 116934 HYDROMORPHONE HCL Inactive AMITRIPTYLINE HCL 25 MG ORAL TABS 1 q hs prn AMITRIPTYLINE HCL 25 MG ORAL TABS 422300 AMITRIPTYLINE HCL Inactive MECLIZINE HCL 25 MG TAB 1 tablet three times daily for 3 days, then 1/2 tab three times daily for 3 days. MECLIZINE HCL 25 MG TAB 129302 MECLIZINE HCL Inactive AMLODIPINE BESYLATE 5 MG ORAL TABS Take 1 tab po daily AMLODIPINE BESYLATE 5 MG ORAL TABS 034167 AMLODIPINE BESYLATE Inactive TOPIRAMATE 25 MG TABS 1 tab po BID TOPIRAMATE 25 MG TABS 505142 TOPIRAMATE Inactive PREDNISONE 20 MG TAB 1 tablet twice daily for 2 days, then 1 tablet once daily for 2 days PREDNISONE 20 MG TAB 914395 PREDNISONE Inactive PREDNISONE 20 MG TAB 1 tab twice daily for 3 day, then one daily for three days PREDNISONE 20 MG TAB 215185 PREDNISONE Inactive AZITHROMYCIN 250 MG TABS 2 po qd x 1 day, then 1 po qd x 4 days AZITHROMYCIN 250 MG TABS 7214708 AZITHROMYCIN Inactive AZITHROMYCIN 250 MG TABS 2 po qd x 1 day, then 1 po qd x 4 days AZITHROMYCIN 250 MG TABS 4947694 AZITHROMYCIN Inactive PREDNISONE 20 MG TAB 2 po qd x 5 days PREDNISONE 20 MG TAB 264326 PREDNISONE Inactive Vital Signs Date Name Value [...] Magnesium - Chemistry cholesterol, serum 180 mg/dL 908-578 8966/08/08 triglyceride, serum, fasting 92 mg/dL 30-200 HDL cholesterol, serum 66 mg/dL 32-96 LDL cholesterol, serum 96 mg/dL 0-130 sodium, serum 142 mmol/L 165-192 8908/08/08 carbon dioxide, venous blood 27.4 mmol/L 21.0-32.0 [...] 10.0-20.0 Encounters Code Encounter Date Provider Facility CPT-79671 Level 3 Est. Patient 09:58:58 CDT Harinder Cr [facility] CPT-02334 Level 3 Est. Patient 12:37:21 CDT Harinder Cr [facility] CPT-68638 Level 3 Est. Patient 18:37:17 CDT Harinder Cr [facility] CPT-04134 Level 4 Est. Patient 11:15:54 CDT Nettie Newberry [facility] CPT-51778 Level 3 Est. Patient 16:42:24 CDT Harinder Hernandez [facility] CPT-41411 Level 3 Est. Patient 15:03:36 CDT Harinder Hernandez [facility] CPT-64507 Level 3 Est. Patient 15:03:20 CDT Harinder Hernandez [facility] CPT-31754 Level 3 Est. Patient 12:14:[address] [facility] CPT-45748 Level 3 Est. Patient 13:47:[address] [facility] CPT-58944 Level 3 Est. Patient 14:08:[address] [facility] CPT-82913 Level 3 Est. Patient 10:07:[address] [facility] CPT-72292 Level 3 Est. Patient 10:06:[address] [facility] CPT-67032 Level 3 Est. Patient 15:53:29 CDT Jae Morgan [facility] CPT-95998 Level 3 Est. Patient 17:19:[address] [facility] CPT-67453 Level 3 Est. Patient 11:13:[address] [facility] CPT-05605 Level 3 Est. Patient 09:03:58 CDT Harinder Hernandez [facility] CPT-72224 Level 3 Est. Patient 14:46:45 FILTER PRESS PUMPER Harinder Hernandez [facility] CPT-49511 Level 3 Est. Patient 09:35:49 FILTER PRESS PUMPER Harinder Shaye Hernandez [facility] CPT-38726 Level 3 Est. Patient 09:29:37 FILTER PRESS PUMPER Harinder Shaye Hernandez [facility] CPT-04177 Level 3 Est. Patient 15:51:[address] [facility] CPT-20226 Level 3 Est. Patient 18:13:[address] [facility] CPT-78783 Level 3 Est. Patient 10:44:[address] [facility] CPT-66964 Level 4 Est. Patient 10:07:19 FILTER PRESS PUMPER Harinder Cr [facility] CPT-37941 Level 3 Est. Patient 15:59:32 FILTER PRESS PUMPER Harinder Cr [facility] Procedures Code Procedure Name Date Entry Date Standard Description CPT-TCMM Transitional Care Mgmt-Moderate 11:33:57 CDT CPT-69220 No Charge Offi Visit 14:11:29 CDT CPT-82477 Magnesium - LAB USE ONLY 10:45:44 CDT CPT-13798 Lipid - LAB USE ONLY 10:45:44 CDT CPT-09730 CBC - LAB USE ONLY 10:45:44 CDT CPT-22160 Venipuncture Draw Fee 10:45:43 CDT CPT-93435 Venipuncture Draw Fee 18:21:27 CDT CPT-JTINJ Asp/Joint Injection 18:38:04 CDT CPT-08307 Immunization Each Additional Inj 17:38:04 CDT CPT-27781 Immunization Single Admin 17:38:04 CDT CPT-81827 Prevnar 13 17:38:04 CDT CPT-39432 Fluzone Quadrivalent preservative free (>=3yrs.) 17:38: 04 CDT CPT-20752 No Charge Offi Visit 11:14:03 CDT CPT-14437 Chest 2V Frontal and Lat 14:00:18 CDT CPT-OV Office Visit 16:10:28 CDT CPT-JTINJ Asp/Joint Injection 09:03:57 CDT CPT-Cryo Cryotherapy 09:35:49 FILTER PRESS PUMPER CPT-JTINJ Asp/Joint Injection 09:34:45 FILTER PRESS PUMPER CPT-J2930 Solu Medrol 125 mg (Methyl Prednisolone Sodium Succinate) 20:37:27 CDT CPT-57599 Abx/Therapy Injection 20:37:27 CDT CPT-36165 Port a cath flush 08:15:51 CDT CPT-52177 Port a cath flush 09:54:16 CDT CPT-01650 Port a cath flush 09:38:02 CDT CPT-93430 Port a cath flush 11:00:27 FILTER PRESS PUMPER
--- OUTSIDE RECORDS SUMMARY | 2017-12-29 00:44 | XMS REPORT | Clinical Summary ---
Author Author Admin, QIE Organization [facility] [employer] Address Unknown Phone Unavailable Allergies, Adverse Reactions, [...] MG/0.3ML INJ SOAJ 1 INJ NEEDED EPINEPHRINE 34196468160 Active Tawnya Pardo MA Active PREDNISONE 20 MG TAB 1 tab twice daily for 3 day, then one daily for three days PREDNISONE 23890609011 No Longer Active Harinder Hernandez DO Active PREDNISONE 20 MG TAB 1 tablet twice daily for 2 days, then 1 tablet once daily for 2 days PREDNISONE 93019495725 No Longer Active Harinder Hernandez DO Active ASMANEX 120 METERED DOSES 220 MCG/INH INH AEPB 2 puffs orally twice daily MOMETASONE FUROATE 17225304921 Active Jeri Sosa RPT,RMA Active NIFEDIPINE ER 30 MG ORAL CF11O-PRE 1 daily NIFEDIPINE 99610179574 Active Tawnya Pardo MA Active TOPIRAMATE 25 MG TABS 1 tab po BID TOPIRAMATE 16154769206 No Longer Active Nettie Newberry APRN Active AMLODIPINE BESYLATE 5 MG ORAL TABS Take 1 tab po daily AMLODIPINE BESYLATE 14329837152 No Longer Active Nettie Newberry APRN Active MECLIZINE HCL 25 MG TAB 1 tablet three times daily for 3 days, then 1/2 tab three times daily for 3 days. MECLIZINE HCL 09839927497 No Longer Active Nettie Newberry APRN Active AMITRIPTYLINE HCL 25 MG ORAL TABS 1 q hs prn AMITRIPTYLINE HCL 21512018563 No Longer Active Nettie Newberry APRN Active DILAUDID 2 MG ORAL TABS Take 1/2 tab po every 4 hours as needed for pain 2014 HYDROMORPHONE HCL 80239303058 No Longer Active Nettie Newberry APRN Active CLOPIDOGREL BISULFATE 75 MG ORAL TABS 1 tab by mouth once daily CLOPIDOGREL BISULFATE 92689450641 Active Tawnya Pardo MA Active ATORVASTATIN CALCIUM 10 MG ORAL TABS 1 at bedtime ATORVASTATIN CALCIUM 23419237427 Active Tawnya Pardo MA Active LOVASTATIN 40 MG ORAL TABS Take 1 tab po every hs LOVASTATIN 90348466956 No Longer Active Harinder Hernandez DO Active PREDNISONE 20 MG TAB 2 tabs daily for 4 days, 1 tab daily for 4 days, 1/2 tab daily for 4 days PREDNISONE 32081332167 No Longer Active Harinder Hernandez DO Active LEVAQUIN 500 MG ORAL TABS Take 1 tab po daily x 8 days LEVOFLOXACIN 13995537922 No Longer Active Harinder Hernandez DO Active VENTOLIN HFA 108 (90 BASE) MCG/ACT AERS 2 -4 puffs four times a day PRN 2013 ALBUTEROL SULFATE 36821242327 No Longer Active Jeri Sosa RPT,RMA Active ACEBUTOLOL HCL 200 MG CAPS 1 cap in the morning and 2 caps in the evening ACEBUTOLOL HCL 55521996889 No Longer Active Harinder Hernandez DO Active CEFDINIR 300 MG ORAL CAPS take 1 cap po bid x 10 days CEFDINIR 63672169510 No Longer Active Harinder Hernandez DO Active LOVASTATIN 40 MG TABS 1 pill by mouth nightly for cholesterol LOVASTATIN 52633549378 No Longer Active Nettie Newberry APRN Active NITROSTAT 0.4 MG SUBL 1 tab under tongueas needed for chest pain ( may take 3 total, 5 min apart, then call 911) NITROGLYCERIN 53315294131 No Longer Active Nettie Newberry APRN Active POTASSIUM CHLORIDE CR 10 MEQ CPCR 1 capsule by mouth daily 02/14 POTASSIUM CHLORIDE 54927561325 No Longer Active Nettie Newberry APRN Active TESSALON PERLES 100 MG CAP 1 to 2 tablets by mouth 3 times daily as needed for cough BENZONATATE 25099697466 No Longer Active Nettie Newberry APRN Active THEOPHYLLINE ER 200 MG ORAL [id number] Take 1 tab every 12 hours THEOPHYLLINE 11018582194 Active Tawnya Pardo MA Active PREDNISONE 20 MG TAB 2 po qd x 5 days PREDNISONE 50331095726 No Longer Active Jae Morgan MD Active AZITHROMYCIN 250 MG TABS 2 po qd x 1 day, then 1 po qd x 4 days AZITHROMYCIN 55493215341 No Longer Active Jae Morgan MD Active PREDNISONE 20 MG TAB 1 tab twice daily for 3 day, then one daily for three days PREDNISONE 62300679871 No Longer Active Jae Morgan MD Active SINGULAIR 10 MG TABS 1 pill by mouth every evening for breathing. MONTELUKAST SODIUM 79381150136 Active Tawnya Pardo MA Active TYLENOL 325 MG TAB 3 by mouth q4h as needed ACETAMINOPHEN 55485780673 Active Harinder Hernandez DO Active POTASSIUM CHLORIDE ER 10 MEQ CR-TABS take 1 tab po daily POTASSIUM CHLORIDE 96197093100 No Longer Active Harinder Hernandez DO Active PREDNISONE 20 MG TAB 1 TID x 2 days, then 1 BID x 3 days, then 1 Daily x 3 days, then stop PREDNISONE 60949216635 No Longer Active Derrickllkvng Montemayor APRN Active LEVAQUIN 500 MG TAB 1 tablet by mouth daily LEVOFLOXACIN 60561883827 No Longer Active Jillkvng Montemayor APRN Active NEURONTIN 300 MG CAP 1 cap by mouth three times daily for restless leg 06/22 GABAPENTIN 24741709356 No Longer Active Harinder Hernandez DO Active BENZONATATE 100 MG CAPS 1 cap po TID PRN BENZONATATE 65661717081 No Longer Active Harinder Hernandez DO Active MONTELUKAST SODIUM 10 MG TABS 1 tab po in the evening MONTELUKAST SODIUM 51413681910 No Longer Active Harinder Hernandez DO Active MUPIROCIN 2 % OINT apply to affected area BID x 14 days MUPIROCIN 02527426509 No Longer Active Harinder Hernandez DO Active TYLENOL EXTRA STRENGTH 500 MG TABS as needed ACETAMINOPHEN 95657748860 No Longer Active Harinder Hernandez DO Active PREDNISONE 10 MG TABS 1 tab po daily PREDNISONE 19137390481 No Longer Active Harinder Hernandez DO Active PREDNISONE 20 MG TAB 2 tabs daily for 4 days, 1 tab daily for 4 days, 1/2 tab daily for 4 days PREDNISONE 38941626640 No Longer Active Harinder Hernandez DO Active AZITHROMYCIN 250 MG TABS 2 po qd x 1 day, then 1 po qd x 4 days AZITHROMYCIN 24981081512 No Longer Active Harinder Hernandez DO Active PREDNISONE 20 MG TAB 3 tabs today, then 1 tab twice daily for 3 day, then one daily for three days PREDNISONE 30775840968 No Longer Active Harinder Hernandez DO Active NIFEDIAC CC 30 MG [id number] 1 tablet daily for raynaud's syndrome NIFEDIPINE 85490587690 No Longer Active Tawnya Pardo MA Active AMBIEN 10 MG TAB 1/2 tab by mouth at bedtime as needed for sleep ZOLPIDEM TARTRATE 13223017017 Active Harinder Hernandez DO Active CLONAZEPAM 1 MG TABS 1 tablet at bedtime for insomnia and restless legs 09/14 CLONAZEPAM 17183966938 Active Kaylah Newberry Active CLONAZEPAM 0.5 MG TABS 1 tab po daily CLONAZEPAM 86569179730 No Longer Active Harinder Hernandez DO Active PREDNISONE 10 MG TAB 1 tablet daily for COPD PREDNISONE 58343221328 Active Tawnya Pardo MA Active PROAIR HFA 108 (90 BASE) MCG/ACT AERS 2 puffs four times a day as needed 2012 ALBUTEROL SULFATE 25487946012 Active Tawnya Pardo MA Active FLOVENT HFA 110 MCG/ACT AERO 2 puffs inhaled b.i.d. FLUTICASONE PROPIONATE HFA 90686124894 Active Tawnya Pardo MA Active ACIPHEX 20 MG TBEC 1 tab po daily RABEPRAZOLE SODIUM 55853210468 Active Tawnya Pardo MA Active CLONAZEPAM 0.5 MG TABS 1 tab po daily CLONAZEPAM 0.5 MG TABS 963962 CLONAZEPAM Inactive PREDNISONE 20 MG TAB 3 tabs today, then 1 tab twice daily for 3 day, then one daily for three days PREDNISONE 20 MG TAB 290789 PREDNISONE Inactive PREDNISONE 20 MG TAB 2 tabs daily for 4 days, 1 tab daily for 4 days, 1/2 tab daily for 4 days PREDNISONE 20 MG TAB 841240 PREDNISONE Inactive PREDNISONE 10 MG TABS 1 tab po daily PREDNISONE 10 MG TABS 052327 PREDNISONE Inactive TYLENOL EXTRA STRENGTH 500 MG TABS as needed TYLENOL EXTRA STRENGTH 500 MG TABS 938440 ACETAMINOPHEN Inactive MUPIROCIN 2 % OINT apply to affected area BID x 14 days MUPIROCIN 2 % OINT 019586 MUPIROCIN Inactive MONTELUKAST SODIUM 10 MG TABS 1 tab po in the evening MONTELUKAST SODIUM 10 MG TABS 042236 MONTELUKAST SODIUM Inactive BENZONATATE 100 MG CAPS 1 cap po TID PRN BENZONATATE 100 MG CAPS 856032 BENZONATATE Inactive NEURONTIN 300 MG CAP 1 cap by mouth three times daily for restless leg 06/22 NEURONTIN 300 MG CAP 398831 GABAPENTIN Inactive LEVAQUIN 500 MG TAB 1 tablet by mouth daily LEVAQUIN 500 MG TAB 169743 LEVOFLOXACIN Inactive PREDNISONE 20 MG TAB 1 TID x 2 days, then 1 BID x 3 days, then 1 Daily x 3 days, then stop PREDNISONE 20 MG TAB 170406 PREDNISONE Inactive POTASSIUM CHLORIDE ER 10 MEQ CR-TABS take 1 tab po daily POTASSIUM CHLORIDE ER 10 MEQ CR-TABS POTASSIUM CHLORIDE Inactive PREDNISONE 20 MG TAB 1 tab twice daily for 3 day, then one daily for three days PREDNISONE 20 MG TAB 659618 PREDNISONE Inactive TESSALON PERLES 100 MG CAP 1 to 2 tablets by mouth 3 times daily as needed for cough TESSALON PERLES 100 MG CAP 216569 BENZONATATE Inactive POTASSIUM CHLORIDE CR 10 MEQ [...] nightly for cholesterol LOVASTATIN 40 MG TABS 366531 LOVASTATIN Inactive CEFDINIR 300 MG ORAL CAPS take 1 cap po bid x 10 days CEFDINIR 300 MG ORAL CAPS 660004 CEFDINIR Inactive ACEBUTOLOL HCL 200 MG CAPS 1 cap in the morning and 2 caps in the evening ACEBUTOLOL HCL 200 MG CAPS 670255 ACEBUTOLOL HCL Inactive VENTOLIN HFA 108 (90 BASE) MCG/ACT AERS 2 -4 puffs four times a day PRN 2013 VENTOLIN HFA 108 (90 BASE) MCG/ACT AERS ALBUTEROL SULFATE Inactive LEVAQUIN 500 MG ORAL TABS Take 1 tab po daily x 8 days LEVAQUIN 500 MG ORAL TABS 198019 LEVOFLOXACIN Inactive PREDNISONE 20 MG TAB 2 tabs daily for 4 days, 1 tab daily for 4 days, 1/2 tab daily for 4 days PREDNISONE 20 MG TAB 718268 PREDNISONE Inactive LOVASTATIN 40 MG ORAL TABS Take 1 tab po every hs LOVASTATIN 40 MG ORAL TABS 593503 LOVASTATIN Inactive DILAUDID 2 MG ORAL TABS Take 1/2 tab po every 4 hours as needed for pain 2014 DILAUDID 2 MG ORAL TABS 037464 HYDROMORPHONE HCL Inactive AMITRIPTYLINE HCL 25 MG ORAL TABS 1 q hs prn AMITRIPTYLINE HCL 25 MG ORAL TABS 731987 AMITRIPTYLINE HCL Inactive MECLIZINE HCL 25 MG TAB 1 tablet three times daily for 3 days, then 1/2 tab three times daily for 3 days. MECLIZINE HCL 25 MG TAB 845839 MECLIZINE HCL Inactive AMLODIPINE BESYLATE 5 MG ORAL TABS Take 1 tab po daily AMLODIPINE BESYLATE 5 MG ORAL TABS 564304 AMLODIPINE BESYLATE Inactive TOPIRAMATE 25 MG TABS 1 tab po BID TOPIRAMATE 25 MG TABS 468023 TOPIRAMATE Inactive PREDNISONE 20 MG TAB 1 tablet twice daily for 2 days, then 1 tablet once daily for 2 days PREDNISONE 20 MG TAB 880375 PREDNISONE Inactive PREDNISONE 20 MG TAB 1 tab twice daily for 3 day, then one daily for three days PREDNISONE 20 MG TAB 016802 PREDNISONE Inactive AZITHROMYCIN 250 MG TABS 2 po qd x 1 day, then 1 po qd x 4 days AZITHROMYCIN 250 MG TABS 6773852 AZITHROMYCIN Inactive AZITHROMYCIN 250 MG TABS 2 po qd x 1 day, then 1 po qd x 4 days AZITHROMYCIN 250 MG TABS 4648586 AZITHROMYCIN Inactive PREDNISONE 20 MG TAB 2 po qd x 5 days PREDNISONE 20 MG TAB 095777 PREDNISONE Inactive Vital Signs Date Name Value [...] Panel - Chemistry sodium, serum 138 mmol/L 261-913 7717/09/24 potassium, serum 3.5 mmol/L 3.5-5.2 chloride, serum [...] Magnesium - Chemistry cholesterol, serum 180 mg/dL 717-870 6359/08/08 triglyceride, serum, fasting 92 mg/dL 30-200 HDL cholesterol, serum 66 mg/dL 32-96 LDL cholesterol, serum 96 mg/dL 0-130 sodium, serum 142 mmol/L 661-420 8709/08/08 carbon dioxide, venous blood 27.4 mmol/L 21.0-32.0 [...] 10.0-20.0 Encounters Code Encounter Date Provider Facility CPT-01425 Level 3 Est. Patient 09:58:[address] [facility] CPT-86686 Level 3 Est. Patient 12:37:[address] [facility] CPT-70432 Level 3 Est. Patient 18:37:[address] [facility] CPT-36711 Level 4 Est. Patient 11:15:54 CDT Nettie Newberry [facility] CPT-14449 Level 3 Est. Patient 16:42:[address] [facility] CPT-61159 Level 3 Est. Patient 15:03:[address] [facility] CPT-53221 Level 3 Est. Patient 15:03:[address] [facility] CPT-35054 Level 3 Est. Patient 12:14:[address] [facility] CPT-65921 Level 3 Est. Patient 13:47:[address] [facility] CPT-46577 Level 3 Est. Patient 14:08:[address] [facility] CPT-74560 Level 3 Est. Patient 10:07:[address] [facility] CPT-42242 Level 3 Est. Patient 10:06:[address] [facility] CPT-75030 Level 3 Est. Patient 15:53:29 CDT Jae Morgan MD [facility] CPT-14888 Level 3 Est. Patient 17:19:04 CDT Harinder Hernandez [facility] CPT-25006 Level 3 Est. Patient 11:13:[address] [facility] CPT-79111 Level 3 Est. Patient 09:03:58 CDT Harinder Hernandez [facility] CPT-94232 Level 3 Est. Patient 14:46:45 [employer] SPECIALIST [facility] CPT-43719 Level 3 Est. Patient 09:35:49 [employer]IST Harinder Hernandez [facility] CPT-68132 Level 3 Est. Patient 09:29:37 [employer]S SPECIALIST Harinder [facility] CPT-05336 Level 3 Est. Patient 15:51:[address] [facility] CPT-71563 Level 3 Est. Patient 18:13:[address] [facility] CPT-80860 Level 3 Est. Patient 10:44:[address] [facility] CPT-83118 Level 4 Est. Patient 10:07:19 [employer]IST Harinder [facility] CPT-71600 Level 3 Est. Patient 15:59:32 [employer]S SPECIALIST Harinder [facility] Procedures Code Procedure Name Date Entry Date Standard Description CPT-TCMM Transitional Care Mgmt-Moderate 11:33:57 CDT CPT-01050 No Charge Offi Visit 14:11:29 CDT CPT-17871 Magnesium - LAB USE ONLY 10:45:44 CDT CPT-65891 Lipid - LAB USE ONLY 10:45:44 CDT CPT-29288 CBC - LAB USE ONLY 10:45:44 CDT CPT-87055 Venipuncture Draw Fee 10:45:43 CDT CPT-63356 Venipuncture Draw Fee 18:21:27 CDT CPT-JTINJ Asp/Joint Injection 18:38:04 CDT CPT-22103 Immunization Each Additional Inj 17:38:04 CDT CPT-73736 Immunization Single Admin 17:38:04 CDT CPT-81676 Prevnar 13 17:38:04 CDT CPT-07518 Fluzone Quadrivalent preservative free (>=3yrs.) 17:38: 04 CDT CPT-23235 No Charge Offi Visit 11:14:03 CDT CPT-87853 Chest 2V Frontal and Lat 14:00:18 CDT CPT-OV Office Visit 16:10:28 CDT CPT-JTINJ Asp/Joint Injection 09:03:57 CDT CPT-Cryo Cryotherapy 09:35:49 PARTS SPECIALIST CPT-JTINJ Asp/Joint Injection 09:34:45 PARTS SPECIALIST CPT-J2930 Solu Medrol 125 mg (Methyl Prednisolone Sodium Succinate) 20:37:27 CDT CPT-02323 Abx/Therapy Injection 20:37:27 CDT CPT-16464 Port a cath flush 08:15:51 CDT CPT-27598 Port a cath flush 09:54:16 CDT CPT-01595 Port a cath flush 09:38:02 CDT CPT-86444 Port a cath flush 11:00:27 PARTS SPECIALIST
--- OUTSIDE RECORDS SUMMARY | 2017-12-29 00:45 | XMS REPORT | Clinical Summary ---
Author Author Admin, QIE Organization [facility] [employer] Address Unknown Phone Unavailable Allergies, Adverse Reactions, [...] then one daily for three days PREDNISONE [id number] No Longer Active Harinder Hernandez DO Active PREDNISONE 20 MG TAB 1 tablet twice daily for 2 days, then 1 tablet once daily for 2 days PREDNISONE 82976815191 No Longer Active Harinder Hernandez DO Active ASMANEX 120 METERED DOSES 220 MCG/INH INH AEPB 2 puffs orally twice daily MOMETASONE FUROATE 32916279770 Active Jeri Sosa RPT,RMA Active NIFEDIPINE ER 30 MG ORAL [id number] 1 daily NIFEDIPINE 48264426645 Active Tawnya Pardo MA Active TOPIRAMATE 25 MG TABS 1 tab po BID TOPIRAMATE 18228375290 No Longer Active Nettie Newberry APRN Active AMLODIPINE BESYLATE 5 MG ORAL TABS Take 1 tab po daily AMLODIPINE BESYLATE 54182296869 No Longer Active Nettie Newberry APRN Active MECLIZINE HCL 25 MG TAB 1 tablet three times daily for 3 days, then 1/2 tab three times daily for 3 days. MECLIZINE HCL 62928351530 No Longer Active Nettie Newberry APRN Active AMITRIPTYLINE HCL 25 MG ORAL TABS 1 q hs prn AMITRIPTYLINE HCL 24029106927 No Longer Active Nettie Newberry APRN Active DILAUDID 2 MG ORAL TABS Take 1/2 tab po every 4 hours as needed for pain 2014 HYDROMORPHONE HCL 91729873514 No Longer Active Nettie Newberry APRN Active CLOPIDOGREL BISULFATE 75 MG ORAL TABS 1 tab by mouth once daily CLOPIDOGREL BISULFATE 45126245975 Active Jeri Sosa RPT,RMA Active ATORVASTATIN CALCIUM 10 MG ORAL TABS 1 at bedtime ATORVASTATIN CALCIUM 93007054352 Active Jeri Sosa RPT,RMA Active LOVASTATIN 40 MG ORAL TABS Take 1 tab po every hs LOVASTATIN 36073716135 No Longer Active Harinder Hernandez DO Active PREDNISONE 20 MG TAB 2 tabs daily for 4 days, 1 tab daily for 4 days, 1/2 tab daily for 4 days PREDNISONE 70574004753 No Longer Active Harinder Hernandez DO Active LEVAQUIN 500 MG ORAL TABS Take 1 tab po daily x 8 days LEVOFLOXACIN 17818821446 No Longer Active Harinder Hernandez DO Active VENTOLIN HFA 108 (90 BASE) MCG/ACT AERS 2 -4 puffs four times a day PRN 2013 ALBUTEROL SULFATE 22075852660 No Longer Active Jeri Sosa RPT,RMA Active ACEBUTOLOL HCL 200 MG CAPS 1 cap in the morning and 2 caps in the evening ACEBUTOLOL HCL 82980854179 No Longer Active Harinder Hernandez DO Active CEFDINIR 300 MG ORAL CAPS take 1 cap po bid x 10 days CEFDINIR 54022494082 No Longer Active Harinder Hernandez DO Active LOVASTATIN 40 MG TABS 1 pill by mouth nightly for cholesterol LOVASTATIN 54824371490 No Longer Active Nettie Newberry APRN Active NITROSTAT 0.4 MG SUBL 1 tab under tongueas needed for chest pain ( may take 3 total, 5 min apart, then call 911) NITROGLYCERIN 64815298811 No Longer Active Nettie Newberry APRN Active POTASSIUM CHLORIDE CR 10 MEQ CPCR 1 capsule by mouth daily 02/14 POTASSIUM CHLORIDE 03243661038 No Longer Active Nettieog Newberry APRN Active TESSALON PERLES 100 MG CAP 1 to 2 tablets by mouth 3 times daily as needed for cough BENZONATATE 52024339528 No Longer Active Nettie Newberry APRN Active THEOPHYLLINE ER 200 MG ORAL [id number] Take 1 tab every 12 hours THEOPHYLLINE 11436280005 Active Jeri Sosa RPT,RMA Active PREDNISONE 20 MG TAB 2 po qd x 5 days PREDNISONE 37935373231 No Longer Active Jae Morgan MD Active AZITHROMYCIN 250 MG TABS 2 po qd x 1 day, then 1 po qd x 4 days AZITHROMYCIN 70350423889 No Longer Active Jae Morgan MD Active PREDNISONE 20 MG TAB 1 tab twice daily for 3 day, then one daily for three days PREDNISONE 67083882806 No Longer Active Jae Morgan MD Active SINGULAIR 10 MG TABS 1 pill by mouth every evening for breathing. MONTELUKAST SODIUM 16953401689 Active Tawnya Pardo MA Active TYLENOL 325 MG TAB 3 by mouth q4h as needed ACETAMINOPHEN 82386300167 Active Harinder Hernandez DO Active POTASSIUM CHLORIDE ER 10 MEQ CR-TABS take 1 tab po daily POTASSIUM CHLORIDE 55500352121 No Longer Active Harinder Hernandez DO Active PREDNISONE 20 MG TAB 1 TID x 2 days, then 1 BID x 3 days, then 1 Daily x 3 days, then stop PREDNISONE 63786005933 No Longer Active Jillina Frazell TRAUMA THERAPIST Active LEVAQUIN 500 MG TAB 1 tablet by mouth daily LEVOFLOXACIN 72010694020 No Longer Active Jillina Frazell TRAUMA THERAPIST Active NEURONTIN 300 MG CAP 1 cap by mouth three times daily for restless leg 06/22 GABAPENTIN 06989205712 No Longer Active Harinder Hernandez DO Active BENZONATATE 100 MG CAPS 1 cap po TID PRN BENZONATATE 32654758146 No Longer Active Harinder Hernandez DO Active MONTELUKAST SODIUM 10 MG TABS 1 tab po in the evening MONTELUKAST SODIUM 10684621705 No Longer Active Harinder Hernandez DO Active MUPIROCIN 2 % OINT apply to affected area BID x 14 days MUPIROCIN 33132954628 No Longer Active Harinder Hernandez DO Active TYLENOL EXTRA STRENGTH 500 MG TABS as needed ACETAMINOPHEN 08585320446 No Longer Active Harinder Hernandez DO Active PREDNISONE 10 MG TABS 1 tab po daily PREDNISONE 81792340068 No Longer Active Harinder Hernandez DO Active PREDNISONE 20 MG TAB 2 tabs daily for 4 days, 1 tab daily for 4 days, 1/2 tab daily for 4 days PREDNISONE 37936889351 No Longer Active Harinder Hernandez DO Active AZITHROMYCIN 250 MG TABS 2 po qd x 1 day, then 1 po qd x 4 days AZITHROMYCIN 67229343501 No Longer Active Harinder Hernandez DO Active PREDNISONE 20 MG TAB 3 tabs today, then 1 tab twice daily for 3 day, then one daily for three days PREDNISONE 32135886698 No Longer Active Harinder Hernandez DO Active NIFEDIAC CC 30 MG [id number] 1 tablet daily for raynaud's syndrome NIFEDIPINE 33469479150 No Longer Active Tawnya Pardo MA Active AMBIEN 10 MG TAB 1/2 tab by mouth at bedtime as needed for sleep ZOLPIDEM TARTRATE 93773671101 Active Harinder Hernandez DO Active CLONAZEPAM 1 MG TABS 1 tablet at bedtime for insomnia and restless legs 09/14 CLONAZEPAM 27484562928 Active Jeri Sosa RPT,RMA Active CLONAZEPAM 0.5 MG TABS 1 tab po daily CLONAZEPAM 16902954010 No Longer Active Harinder Hernandez DO Active PREDNISONE 10 MG TAB 1 tablet daily for COPD PREDNISONE 20725353003 Active Tawnya Pardo MA Active PROAIR HFA 108 (90 BASE) MCG/ACT AERS 2 puffs four times a day as needed 2012 ALBUTEROL SULFATE 30133121741 Active Tawnya Pardo MA Active FLOVENT HFA 110 MCG/ACT AERO 2 puffs inhaled b.i.d. FLUTICASONE PROPIONATE HFA 10796608696 Active Tawnya Pardo MA Active EPIPEN 0.3 MG/0.3ML URIEL DIRECTED EPINEPHRINE Active Jeri Sosa RPT,RMA Active ACIPHEX 20 MG TBEC 1 tab po daily RABEPRAZOLE SODIUM 67302088021 Active Tawnya Pardo MA Active CLONAZEPAM 0.5 MG TABS 1 tab po daily CLONAZEPAM 0.5 MG TABS 849039 CLONAZEPAM Inactive PREDNISONE 20 MG TAB 3 tabs today, then 1 tab twice daily for 3 day, then one daily for three days PREDNISONE 20 MG TAB 949290 PREDNISONE Inactive PREDNISONE 20 MG TAB 2 tabs daily for 4 days, 1 tab daily for 4 days, 1/2 tab daily for 4 days PREDNISONE 20 MG TAB 840175 PREDNISONE Inactive PREDNISONE 10 MG TABS 1 tab po daily PREDNISONE 10 MG TABS 767411 PREDNISONE Inactive TYLENOL EXTRA STRENGTH 500 MG TABS as needed TYLENOL EXTRA STRENGTH 500 MG TABS 521927 ACETAMINOPHEN Inactive MUPIROCIN 2 % OINT apply to affected area BID x 14 days MUPIROCIN 2 % OINT 987265 MUPIROCIN Inactive MONTELUKAST SODIUM 10 MG TABS 1 tab po in the evening MONTELUKAST SODIUM 10 MG TABS 659609 MONTELUKAST SODIUM Inactive BENZONATATE 100 MG CAPS 1 cap po TID PRN BENZONATATE 100 MG CAPS 302057 BENZONATATE Inactive NEURONTIN 300 MG CAP 1 cap by mouth three times daily for restless leg 06/22 NEURONTIN 300 MG CAP 331515 GABAPENTIN Inactive LEVAQUIN 500 MG TAB 1 tablet by mouth daily LEVAQUIN 500 MG TAB 991802 LEVOFLOXACIN Inactive PREDNISONE 20 MG TAB 1 TID x 2 days, then 1 BID x 3 days, then 1 Daily x 3 days, then stop PREDNISONE 20 MG TAB 819607 PREDNISONE Inactive POTASSIUM CHLORIDE ER 10 MEQ CR-TABS take 1 tab po daily POTASSIUM CHLORIDE ER 10 MEQ CR-TABS POTASSIUM CHLORIDE Inactive PREDNISONE 20 MG TAB 1 tab twice daily for 3 day, then one daily for three days PREDNISONE 20 MG TAB 921847 PREDNISONE Inactive TESSALON PERLES 100 MG CAP 1 to 2 tablets by mouth 3 times daily as needed for cough TESSALON PERLES 100 MG CAP 089597 BENZONATATE Inactive POTASSIUM CHLORIDE CR 10 MEQ [...] nightly for cholesterol LOVASTATIN 40 MG TABS 891786 LOVASTATIN Inactive CEFDINIR 300 MG ORAL CAPS take 1 cap po bid x 10 days CEFDINIR 300 MG ORAL CAPS 633365 CEFDINIR Inactive ACEBUTOLOL HCL 200 MG CAPS 1 cap in the morning and 2 caps in the evening ACEBUTOLOL HCL 200 MG CAPS 756779 ACEBUTOLOL HCL Inactive VENTOLIN HFA 108 (90 BASE) MCG/ACT AERS 2 -4 puffs four times a day PRN 2013 VENTOLIN HFA 108 (90 BASE) MCG/ACT AERS ALBUTEROL SULFATE Inactive LEVAQUIN 500 MG ORAL TABS Take 1 tab po daily x 8 days LEVAQUIN 500 MG ORAL TABS 418875 LEVOFLOXACIN Inactive PREDNISONE 20 MG TAB 2 tabs daily for 4 days, 1 tab daily for 4 days, 1/2 tab daily for 4 days PREDNISONE 20 MG TAB 684943 PREDNISONE Inactive LOVASTATIN 40 MG ORAL TABS Take 1 tab po every hs LOVASTATIN 40 MG ORAL TABS 019220 LOVASTATIN Inactive DILAUDID 2 MG ORAL TABS Take 1/2 tab po every 4 hours as needed for pain 2014 DILAUDID 2 MG ORAL TABS 479270 HYDROMORPHONE HCL Inactive AMITRIPTYLINE HCL 25 MG ORAL TABS 1 q hs prn AMITRIPTYLINE HCL 25 MG ORAL TABS 042789 AMITRIPTYLINE HCL Inactive MECLIZINE HCL 25 MG TAB 1 tablet three times daily for 3 days, then 1/2 tab three times daily for 3 days. MECLIZINE HCL 25 MG TAB 340050 MECLIZINE HCL Inactive AMLODIPINE BESYLATE 5 MG ORAL TABS Take 1 tab po daily AMLODIPINE BESYLATE 5 MG ORAL TABS 497940 AMLODIPINE BESYLATE Inactive TOPIRAMATE 25 MG TABS 1 tab po BID TOPIRAMATE 25 MG TABS 993940 TOPIRAMATE Inactive PREDNISONE 20 MG TAB 1 tablet twice daily for 2 days, then 1 tablet once daily for 2 days PREDNISONE 20 MG TAB 038824 PREDNISONE Inactive PREDNISONE 20 MG TAB 1 tab twice daily for 3 day, then one daily for three days PREDNISONE 20 MG TAB 806900 PREDNISONE Inactive AZITHROMYCIN 250 MG TABS 2 po qd x 1 day, then 1 po qd x 4 days AZITHROMYCIN 250 MG TABS 8474639 AZITHROMYCIN Inactive AZITHROMYCIN 250 MG TABS 2 po qd x 1 day, then 1 po qd x 4 days AZITHROMYCIN 250 MG TABS 4993551 AZITHROMYCIN Inactive PREDNISONE 20 MG TAB 2 po qd x 5 days PREDNISONE 20 MG TAB 370789 PREDNISONE Inactive Vital Signs Date Name Value [...] Panel - Chemistry sodium, serum 138 mmol/L 513-340 7566/09/24 potassium, serum 3.5 mmol/L 3.5-5.2 chloride, serum [...] Magnesium - Chemistry cholesterol, serum 180 mg/dL 812-567 0709/08/08 triglyceride, serum, fasting 92 mg/dL 30-200 HDL cholesterol, serum 66 mg/dL 32-96 LDL cholesterol, serum 96 mg/dL 0-130 sodium, serum 142 mmol/L 661-273 5058/08/08 carbon dioxide, venous blood 27.4 mmol/L 21.0-32.0 [...] 10.0-20.0 Encounters Code Encounter Date Provider Facility CPT-13790 Level 3 Est. Patient 09:58:58 CDT Harinder Shaye [facility] CPT-63492 Level 3 Est. Patient 12:37:21 CDT Harinder Cr [facility] CPT-41025 Level 3 Est. Patient 18:37:17 CDT Harinder Cr [facility] CPT-07033 Level 4 Est. Patient 11:15:54 CDT Nettie Newberry [facility] CPT-78881 Level 3 Est. Patient 16:42:24 CDT Harinder Cr [facility] CPT-73608 Level 3 Est. Patient 15:03:36 CDT Harinder Cr [facility] CPT-16022 Level 3 Est. Patient 15:03:20 CDT Harinder Cr [facility] CPT-69341 Level 3 Est. Patient 12:14:34 CDT Harinder Shaye [facility] CPT-22986 Level 3 Est. Patient 13:47:15 CDT Harinder Cr [facility] CPT-94313 Level 3 Est. Patient 14:08:24 CDT Harinder Cr [facility] CPT-47553 Level 3 Est. Patient 10:07:15 CDT Harinder Cr [facility] CPT-73374 Level 3 Est. Patient 10:06:59 CDT Harinder Cr [facility] CPT-18575 Level 3 Est. Patient 15:53:29 CDT Jae Morgan MD [facility] CPT-76816 Level 3 Est. Patient 17:19:04 CDT Harinder Shaye David [facility] CPT-47642 Level 3 Est. Patient 11:13:01 CDT Harinder Hernandez [facility] CPT-74993 Level 3 Est. Patient 09:03:58 CDT Harinder Hernandez [facility] CPT-58158 Level 3 Est. Patient 14:46:45 PROFILE SAW OPERATOR Harinder Shaye David [facility] CPT-03976 Level 3 Est. Patient 09:35:49 PROFILE SAW OPERATOR Harinder Shaye David [facility] CPT-00541 Level 3 Est. Patient 09:29:37 PROFILE SAW OPERATOR Harinder Shaye David [facility] CPT-14950 Level 3 Est. Patient 15:51:07 CDT Harinder Hernandez [facility] CPT-91853 Level 3 Est. Patient 18:13:13 CDT Harinder Cr [facility] CPT-17786 Level 3 Est. Patient 10:44:19 CDT Harinder Hernandez [facility] CPT-60567 Level 4 Est. Patient 10:07:19 PROFILE SAW OPERATOR Harinder Cr [facility] CPT-68158 Level 3 Est. Patient 15:59:32 PROFILE SAW OPERATOR Harinder Cr [facility] Procedures Code Procedure Name Date Entry Date Standard Description CPT-TCMM Transitional Care Mgmt-Moderate 11:33:57 CDT CPT-60079 No Charge Offi Visit 14:11:29 CDT CPT-93378 Magnesium - LAB USE ONLY 10:45:44 CDT CPT-69852 Lipid - LAB USE ONLY 10:45:44 CDT CPT-69896 CBC - LAB USE ONLY 10:45:44 CDT CPT-19147 Venipuncture Draw Fee 10:45:43 CDT CPT-11357 Venipuncture Draw Fee 18:21:27 CDT CPT-JTINJ Asp/Joint Injection 18:38:04 CDT CPT-16668 Immunization Each Additional Inj 17:38:04 CDT CPT-06434 Immunization Single Admin 17:38:04 CDT CPT-91103 Prevnar 13 17:38:04 CDT CPT-32155 Fluzone Quadrivalent preservative free (>=3yrs.) 17:38: 04 CDT CPT-41351 No Charge Offi Visit 11:14:03 CDT CPT-46659 Chest 2V Frontal and Lat 14:00:18 CDT CPT-OV Office Visit 16:10:28 CDT CPT-JTINJ Asp/Joint Injection 09:03:57 CDT CPT-Cryo Cryotherapy 09:35:49 PROFILE SAW OPERATOR CPT-JTINJ Asp/Joint Injection 09:34:45 PROFILE SAW OPERATOR CPT-J2930 Solu Medrol 125 mg (Methyl Prednisolone Sodium Succinate) 20:37:27 CDT CPT-06556 Abx/Therapy Injection 20:37:27 CDT CPT-57399 Port a cath flush 08:15:51 CDT CPT-53110 Port a cath flush 09:54:16 CDT CPT-15463 Port a cath flush 09:38:02 CDT CPT-95198 Port a cath flush 11:00:27 PROFILE SAW OPERATOR
--- OUTSIDE RECORDS SUMMARY | 2017-12-29 00:46 | XMS REPORT | Clinical Summary ---
Author Author Admin, QIE Organization [facility] Address Unknown Phone Unavailable Allergies, Adverse Reactions, [...] tab po daily x 8 days LEVOFLOXACIN [id number] Active Tawnya Pardo MA Active PREDNISONE 20 MG TAB 2 tabs daily for 4 days, 1 tab daily for 4 days, 1/2 tab daily for 4 days PREDNISONE 44815186829 Active Harinder Hernandez DO Active LOVASTATIN 40 MG ORAL TABS Take 1 tab po every hs LOVASTATIN 15380688194 Active Johny Dawkins MD Active AMLODIPINE BESYLATE 5 MG ORAL TABS Take 1 tab po daily AMLODIPINE BESYLATE 84161439355 Active Tawnya Pardo MA Active VENTOLIN HFA 108 (90 BASE) MCG/ACT AERS 2 -4 puffs four times a day PRN 2013 ALBUTEROL SULFATE 48180600259 No Longer Active Jeri Sosa RPT,RMA Active DILAUDID 2 MG ORAL TABS Take 1/2 tab po every 4 hours as needed for pain 2014 HYDROMORPHONE HCL 04168273451 Active Harinder Hernandez DO Active ACEBUTOLOL HCL 200 MG CAPS 1 cap in the morning and 2 caps in the evening ACEBUTOLOL HCL 50410610909 No Longer Active Harinder Hernandez DO Active CEFDINIR 300 MG ORAL CAPS take 1 cap po bid x 10 days CEFDINIR 76486421353 No Longer Active Harinder Hernandez DO Active AMITRIPTYLINE HCL 25 MG ORAL TABS 1 q hs prn AMITRIPTYLINE HCL 35784576822 Active Tawnya Pardo MA Active LOVASTATIN 40 MG TABS 1 pill by mouth nightly for cholesterol LOVASTATIN 78814620487 No Longer Active Nettie Newberry APRN Active NITROSTAT 0.4 MG SUBL 1 tab under tongueas needed for chest pain ( may take 3 total, 5 min apart, then call 911) NITROGLYCERIN 51951309421 No Longer Active Nettie Newberry APRN Active POTASSIUM CHLORIDE CR 10 MEQ CPCR 1 capsule by mouth daily 02/14 POTASSIUM CHLORIDE 76310768544 No Longer Active Nettie Newberry APRN Active TESSALON PERLES 100 MG CAP 1 to 2 tablets by mouth 3 times daily as needed for cough BENZONATATE 29309195338 No Longer Active Nettie Newberry APRN Active THEOPHYLLINE ER 200 MG ORAL [id number] Take 1 tab every 12 hours THEOPHYLLINE 02917179761 Active Tawnya Pardo MA Active PREDNISONE 20 MG TAB 2 po qd x 5 days PREDNISONE 35772523945 No Longer Active Jae Morgan MD Active AZITHROMYCIN 250 MG TABS 2 po qd x 1 day, then 1 po qd x 4 days AZITHROMYCIN 84851357317 No Longer Active Jae Morgan MD Active PREDNISONE 20 MG TAB 1 tab twice daily for 3 day, then one daily for three days PREDNISONE 59636269047 No Longer Active Jae Morgan MD Active MECLIZINE HCL 25 MG TAB 1 tablet three times daily for 3 days, then 1/2 tab three times daily for 3 days. MECLIZINE HCL 68358511835 Active Harinder Hernandez DO Active SINGULAIR 10 MG TABS 1 pill by mouth every evening for breathing. MONTELUKAST SODIUM 02326305993 Active Tawnya Pardo MA Active TYLENOL 325 MG TAB 3 by mouth q4h as needed ACETAMINOPHEN 35105383884 Active Harinder Hernandez DO Active POTASSIUM CHLORIDE ER 10 MEQ CR-TABS take 1 tab po daily POTASSIUM CHLORIDE 71483290677 No Longer Active Harinder Hernandez DO Active PREDNISONE 20 MG TAB 1 TID x 2 days, then 1 BID x 3 days, then 1 Daily x 3 days, then stop PREDNISONE 79679480108 No Longer Active Jillina Frazell SYNTHETIC FILAMENT SPINNER Active LEVAQUIN 500 MG TAB 1 tablet by mouth daily LEVOFLOXACIN 38749987848 No Longer Active Jillina Frazell SYNTHETIC FILAMENT SPINNER Active NEURONTIN 300 MG CAP 1 cap by mouth three times daily for restless leg 06/22 GABAPENTIN 34471646767 No Longer Active Harinder Hernandez DO Active BENZONATATE 100 MG CAPS 1 cap po TID PRN BENZONATATE 01336893258 No Longer Active Harinder Hernandez DO Active MONTELUKAST SODIUM 10 MG TABS 1 tab po in the evening MONTELUKAST SODIUM 09669595068 No Longer Active Harinder Hernandez DO Active MUPIROCIN 2 % OINT apply to affected area BID x 14 days MUPIROCIN 94734010793 No Longer Active Harinder Hernandez DO Active TYLENOL EXTRA STRENGTH 500 MG TABS as needed ACETAMINOPHEN 66907891773 No Longer Active Harinder Hernandez DO Active PREDNISONE 10 MG TABS 1 tab po daily PREDNISONE 32921297763 No Longer Active Harinder Hernandez DO Active PREDNISONE 20 MG TAB 2 tabs daily for 4 days, 1 tab daily for 4 days, 1/2 tab daily for 4 days PREDNISONE 26210276710 No Longer Active Harinder W David DO Active AZITHROMYCIN 250 MG TABS 2 po qd x 1 day, then 1 po qd x 4 days AZITHROMYCIN 58561218108 No Longer Active Harinder Hernandez DO Active PREDNISONE 20 MG TAB 3 tabs today, then 1 tab twice daily for 3 day, then one daily for three days PREDNISONE 05845717486 No Longer Active Harinder Hernandez DO Active NIFEDIAC CC 30 MG [id number] 1 tablet daily for raynaud's syndrome NIFEDIPINE 89671505270 No Longer Active Tawnya Pardo MA Active AMBIEN 10 MG TAB 1/2 tab by mouth at bedtime as needed for sleep ZOLPIDEM TARTRATE 09111689604 Active Harinder Hernandez DO Active CLONAZEPAM 1 MG TABS 1 tablet at bedtime for insomnia and restless legs 09/14 CLONAZEPAM 85731958974 Active Harinder Hernandez DO Active CLONAZEPAM 0.5 MG TABS 1 tab po daily CLONAZEPAM 87513343476 No Longer Active Harinder Hernandez DO Active PREDNISONE 10 MG TAB 1 tablet daily for COPD PREDNISONE 58551782723 Active Tawnya Pardo MA Active PROAIR HFA 108 (90 BASE) MCG/ACT AERS 2 puffs four times a day as needed 2012 ALBUTEROL SULFATE 56025433533 Active Tawnya Pardo MA Active FLOVENT HFA 110 MCG/ACT AERO 2 puffs inhaled b.i.d. FLUTICASONE PROPIONATE HFA 47463569719 Active Tawnya Pardo MA Active EPIPEN 0.3 MG/0.3ML URIEL DIRECTED EPINEPHRINE Active Demetrius JOHNSON Active ACIPHEX 20 MG TBEC 1 tab po daily RABEPRAZOLE SODIUM 06593534104 Active Tawnya Pardo MA Active TOPIRAMATE 25 MG TABS 1 tab po BID TOPIRAMATE 45403757297 Active Tawnya Pardo MA Active CLONAZEPAM 0.5 MG TABS 1 tab po daily CLONAZEPAM 0.5 MG TABS 700324 CLONAZEPAM Inactive PREDNISONE 20 MG TAB 3 tabs today, then 1 tab twice daily for 3 day, then one daily for three days PREDNISONE 20 MG TAB 255225 PREDNISONE Inactive PREDNISONE 20 MG TAB 2 tabs daily for 4 days, 1 tab daily for 4 days, 1/2 tab daily for 4 days PREDNISONE 20 MG TAB 155833 PREDNISONE Inactive PREDNISONE 10 MG TABS 1 tab po daily PREDNISONE 10 MG TABS 813145 PREDNISONE Inactive TYLENOL EXTRA STRENGTH 500 MG TABS as needed TYLENOL EXTRA STRENGTH 500 MG TABS 535064 ACETAMINOPHEN Inactive MUPIROCIN 2 % OINT apply to affected area BID x 14 days MUPIROCIN 2 % OINT 994278 MUPIROCIN Inactive MONTELUKAST SODIUM 10 MG TABS 1 tab po in the evening MONTELUKAST SODIUM 10 MG TABS 230293 MONTELUKAST SODIUM Inactive BENZONATATE 100 MG CAPS 1 cap po TID PRN BENZONATATE 100 MG CAPS 834978 BENZONATATE Inactive NEURONTIN 300 MG CAP 1 cap by mouth three times daily for restless leg 06/22 NEURONTIN 300 MG CAP 479376 GABAPENTIN Inactive LEVAQUIN 500 MG TAB 1 tablet by mouth daily LEVAQUIN 500 MG TAB 733361 LEVOFLOXACIN Inactive PREDNISONE 20 MG TAB 1 TID x 2 days, then 1 BID x 3 days, then 1 Daily x 3 days, then stop PREDNISONE 20 MG TAB 942276 PREDNISONE Inactive POTASSIUM CHLORIDE ER 10 MEQ CR-TABS take 1 tab po daily POTASSIUM CHLORIDE ER 10 MEQ CR-TABS POTASSIUM CHLORIDE Inactive PREDNISONE 20 MG TAB 1 tab twice daily for 3 day, then one daily for three days PREDNISONE 20 MG TAB 307171 PREDNISONE Inactive TESSALON PERLES 100 MG CAP 1 to 2 tablets by mouth 3 times daily as needed for cough TESSALON PERLES 100 MG CAP 649539 BENZONATATE Inactive POTASSIUM CHLORIDE CR 10 MEQ [...] nightly for cholesterol LOVASTATIN 40 MG TABS 076879 LOVASTATIN Inactive CEFDINIR 300 MG ORAL CAPS take 1 cap po bid x 10 days CEFDINIR 300 MG ORAL CAPS 071595 CEFDINIR Inactive ACEBUTOLOL HCL 200 MG CAPS 1 cap in the morning and 2 caps in the evening ACEBUTOLOL HCL 200 MG CAPS 021545 ACEBUTOLOL HCL Inactive VENTOLIN HFA 108 (90 BASE) MCG/ACT AERS 2 -4 puffs four times a day PRN 2013 VENTOLIN HFA 108 (90 BASE) MCG/ACT AERS ALBUTEROL SULFATE Inactive AZITHROMYCIN 250 MG TABS 2 po qd x 1 day, then 1 po qd x 4 days AZITHROMYCIN 250 MG TABS 1799028 AZITHROMYCIN Inactive AZITHROMYCIN 250 MG TABS 2 po qd x 1 day, then 1 po qd x 4 days AZITHROMYCIN 250 MG TABS 3483286 AZITHROMYCIN Inactive PREDNISONE 20 MG TAB 2 po qd x 5 days PREDNISONE 20 MG TAB 057468 PREDNISONE Inactive Vital Signs Date Name Value [...] Panel - Chemistry sodium, serum 138 mmol/L 590-587 8900/09/24 potassium, serum 3.5 mmol/L 3.5-5.2 chloride, serum [...] 142-424 Encounters Code Encounter Date Provider Facility CPT-69564 Level 3 Est. Patient 15:03:36 CDT Harinder Hernandez [facility] CPT-03795 Level 3 Est. Patient 15:03:20 CDT Harinder Hernandez [facility] CPT-96883 Level 3 Est. Patient 12:14:34 CDT Harinder Hernandez [facility] CPT-05534 Level 3 Est. Patient 13:47:15 CDT Harinder Hernandez [facility] CPT-68700 Level 3 Est. Patient 14:08:24 CDT Harinder Hernandez [facility] CPT-68287 Level 3 Est. Patient 10:07:15 CDT Harinder Hernandez [facility] CPT-79527 Level 3 Est. Patient 10:06:59 CDT Harinder Hernandez [facility] CPT-47202 Level 3 Est. Patient 15:53:29 CDT Jae Morgan MD [facility] CPT-53149 Level 3 Est. Patient 17:19:04 CDT Harinder Hernandez [facility] CPT-40600 Level 3 Est. Patient 11:13:01 CDT Harinder Hernandez [facility] CPT-42935 Level 3 Est. Patient 09:03:58 CDT Harinder Hernandez [facility] CPT-65218 Level 3 Est. Patient 14:46:45 STERILE SUPPLY TECHNICIAN Harinder Hernandez [facility] CPT-60211 Level 3 Est. Patient 09:35:49 STERILE SUPPLY TECHNICIAN Harinder Hernandez [facility] CPT-98355 Level 3 Est. Patient 09:29:37 STERILE SUPPLY TECHNICIAN Harinder Hernandez [facility] CPT-56141 Level 3 Est. Patient 15:51:07 CDT Harinder Hernandez [facility] CPT-07287 Level 3 Est. Patient 18:13:13 CDT Harinder Hernandez [facility] CPT-92411 Level 3 Est. Patient 10:44:19 CDT Harinder Hernandez [facility] CPT-88058 Level 4 Est. Patient 10:07:19 STERILE SUPPLY TECHNICIAN Harinder Hernandez [facility] CPT-70879 Level 3 Est. Patient 15:59:32 STERILE SUPPLY TECHNICIAN Harinder Cr [facility] Procedures Code Procedure Name Date Entry Date Standard Description CPT-79222 Immunization Each Additional Inj 17:38:04 CDT CPT-64845 Immunization Single Admin 17:38:04 CDT CPT-97918 Prevnar 13 17:38:04 CDT CPT-45638 Fluzone Quadrivalent preservative free (>=3yrs.) 17:38: 04 CDT CPT-07524 No Charge Offi Visit 11:14:03 CDT CPT-77728 Chest 2V Frontal and Lat 14:00:18 CDT CPT-OV Office Visit 16:10:28 CDT CPT-JTINJ Asp/Joint Injection 09:03:57 CDT CPT-Cryo Cryotherapy 09:35:49 STERILE SUPPLY TECHNICIAN CPT-JTINJ Asp/Joint Injection 09:34:45 STERILE SUPPLY TECHNICIAN CPT-J2930 Solu Medrol 125 mg (Methyl Prednisolone Sodium Succinate) 20:37:27 CDT CPT-51764 Abx/Therapy Injection 20:37:27 CDT CPT-25106 Port a cath flush 08:15:51 CDT CPT-81499 Port a cath flush 09:54:16 CDT CPT-94494 Port a cath flush 09:38:02 CDT CPT-68956 Port a cath flush 11:00:27 STERILE SUPPLY TECHNICIAN
--- OUTSIDE RECORDS SUMMARY | 2017-12-29 00:47 | XMS REPORT | Clinical Summary ---
Author Author Admin, QIE Organization [facility] Address Unknown Phone Unavailable Allergies, Adverse [...] Active Harinder Hernandez DO HYDROCODONE-ACETAMINOPHEN Critical Active aHrinder Hernandez DO [facility] CORTISONE LONG-LASTING Critical Active [...] hip region Diarrhea, acute 787.91 Active Harinder Hrenandez DO Diarrhea URI 465.[address] [...] MG/0.3ML INJ SOAJ 1 INJ NEEDED EPINEPHRINE 25405075964 Active Tawnya Pardo MA Active PREDNISONE 20 MG TAB 1 tab twice daily for 3 day, then one daily for three days PREDNISONE 44640467148 No Longer Active Harinder Hernandez DO Active PREDNISONE 20 MG TAB 1 tablet twice daily for 2 days, then 1 tablet once daily for 2 days PREDNISONE 83179371002 No Longer Active Harinder Hernandez DO Active ASMANEX 120 METERED DOSES 220 MCG/INH INH AEPB 2 puffs orally twice daily MOMETASONE FUROATE 07414646118 Active Jeri Sosa RPT,RMA Active NIFEDIPINE ER 30 MG ORAL [id number] 1 daily NIFEDIPINE 48497511266 Active Tawnya Pardo MA Active TOPIRAMATE 25 MG TABS 1 tab po BID TOPIRAMATE 61040589862 No Longer Active Nettie Newberry APRN Active AMLODIPINE BESYLATE 5 MG ORAL TABS Take 1 tab po daily AMLODIPINE BESYLATE 21633103526 No Longer Active Nettie Newberry APRN Active MECLIZINE HCL 25 MG TAB 1 tablet three times daily for 3 days, then 1/2 tab three times daily for 3 days. MECLIZINE HCL 70934351041 No Longer Active Nettie Newberry APRN Active AMITRIPTYLINE HCL 25 MG ORAL TABS 1 q hs prn AMITRIPTYLINE HCL 94483833519 No Longer Active Nettie Newberry APRN Active DILAUDID 2 MG ORAL TABS Take 1/2 tab po every 4 hours as needed for pain 2014 HYDROMORPHONE HCL 77685596648 No Longer Active Nettie Newberry APRN Active CLOPIDOGREL BISULFATE 75 MG ORAL TABS 1 tab by mouth once daily CLOPIDOGREL BISULFATE 55580816016 Active Tawnya Pardo MA Active ATORVASTATIN CALCIUM 10 MG ORAL TABS 1 at bedtime ATORVASTATIN CALCIUM 53047342012 Active Tawnya Pardo MA Active LOVASTATIN 40 MG ORAL TABS Take 1 tab po every hs LOVASTATIN 15652256627 No Longer Active Harinder Hernandez DO Active PREDNISONE 20 MG TAB 2 tabs daily for 4 days, 1 tab daily for 4 days, 1/2 tab daily for 4 days PREDNISONE 32932264311 No Longer Active Harinder Hernandez DO Active LEVAQUIN 500 MG ORAL TABS Take 1 tab po daily x 8 days LEVOFLOXACIN 05564649274 No Longer Active Harinder Hernandez DO Active VENTOLIN HFA 108 (90 BASE) MCG/ACT AERS 2 -4 puffs four times a day PRN 2013 ALBUTEROL SULFATE 08238223036 No Longer Active Jeri Sosa RPT,RMA Active ACEBUTOLOL HCL 200 MG CAPS 1 cap in the morning and 2 caps in the evening ACEBUTOLOL HCL 19892179048 No Longer Active Harinder Hernandez DO Active CEFDINIR 300 MG ORAL CAPS take 1 cap po bid x 10 days CEFDINIR 18577271995 No Longer Active Harinder Hernandez DO Active LOVASTATIN 40 MG TABS 1 pill by mouth nightly for cholesterol LOVASTATIN 71648353397 No Longer Active Nettie Newberry APRN Active NITROSTAT 0.4 MG SUBL 1 tab under tongueas needed for chest pain ( may take 3 total, 5 min apart, then call 911) NITROGLYCERIN 81342966345 No Longer Active Nettie Newberry APRN Active POTASSIUM CHLORIDE CR 10 MEQ CPCR 1 capsule by mouth daily 02/14 POTASSIUM CHLORIDE 29806210623 No Longer Active Nettie Newberry APRN Active TESSALON PERLES 100 MG CAP 1 to 2 tablets by mouth 3 times daily as needed for cough BENZONATATE 35114419058 No Longer Active Nettie Newberry APRN Active THEOPHYLLINE ER 200 MG ORAL [id number] Take 1 tab every 12 hours THEOPHYLLINE 64993042503 Active Tawnya Pardo MA Active PREDNISONE 20 MG TAB 2 po qd x 5 days PREDNISONE 22163315583 No Longer Active Jae Morgan MD Active AZITHROMYCIN 250 MG TABS 2 po qd x 1 day, then 1 po qd x 4 days AZITHROMYCIN 55553421689 No Longer Active Jae Morgan MD Active PREDNISONE 20 MG TAB 1 tab twice daily for 3 day, then one daily for three days PREDNISONE 62542858775 No Longer Active Jae Morgan MD Active SINGULAIR 10 MG TABS 1 pill by mouth every evening for breathing. MONTELUKAST SODIUM 90758811707 Active Tawnya Pardo MA Active TYLENOL 325 MG TAB 3 by mouth q4h as needed ACETAMINOPHEN 12044522837 Active Harinder Hernandez DO Active POTASSIUM CHLORIDE ER 10 MEQ CR-TABS take 1 tab po daily POTASSIUM CHLORIDE 82281587140 No Longer Active Harinder Hernandez DO Active PREDNISONE 20 MG TAB 1 TID x 2 days, then 1 BID x 3 days, then 1 Daily x 3 days, then stop PREDNISONE 08427232842 No Longer Active John Montemayor APRN Active LEVAQUIN 500 MG TAB 1 tablet by mouth daily LEVOFLOXACIN 62137299472 No Longer Active Jillkvng Montemayor APRN Active NEURONTIN 300 MG CAP 1 cap by mouth three times daily for restless leg 06/22 GABAPENTIN 24033064475 No Longer Active Harinder Hernandez DO Active BENZONATATE 100 MG CAPS 1 cap po TID PRN BENZONATATE 44323940067 No Longer Active Harinder Hernandez DO Active MONTELUKAST SODIUM 10 MG TABS 1 tab po in the evening MONTELUKAST SODIUM 91552263855 No Longer Active Harinder Hernandez DO Active MUPIROCIN 2 % OINT apply to affected area BID x 14 days MUPIROCIN 98313543933 No Longer Active Harinder Hernandez DO Active TYLENOL EXTRA STRENGTH 500 MG TABS as needed ACETAMINOPHEN 84090289280 No Longer Active Harinder Hernandez DO Active PREDNISONE 10 MG TABS 1 tab po daily PREDNISONE 62792729267 No Longer Active Harinder Hernandez DO Active PREDNISONE 20 MG TAB 2 tabs daily for 4 days, 1 tab daily for 4 days, 1/2 tab daily for 4 days PREDNISONE 64328205753 No Longer Active Harinder Hernandez DO Active AZITHROMYCIN 250 MG TABS 2 po qd x 1 day, then 1 po qd x 4 days AZITHROMYCIN 95402491846 No Longer Active Harinder Hernandez DO Active PREDNISONE 20 MG TAB 3 tabs today, then 1 tab twice daily for 3 day, then one daily for three days PREDNISONE 81516980225 No Longer Active Harinder Hernandez DO Active NIFEDIAC CC 30 MG [id number] 1 tablet daily for raynaud's syndrome NIFEDIPINE 73019855824 No Longer Active Tawnya Pardo MA Active AMBIEN 10 MG TAB 1/2 tab by mouth at bedtime as needed for sleep ZOLPIDEM TARTRATE 83438433320 Active Harinder Hernandez DO Active CLONAZEPAM 1 MG TABS 1 tablet at bedtime for insomnia and restless legs 09/14 CLONAZEPAM 03232308535 Active Kaylah Newberry Active CLONAZEPAM 0.5 MG TABS 1 tab po daily CLONAZEPAM 64232648894 No Longer Active Harinder Hernandez DO Active PREDNISONE 10 MG TAB 1 tablet daily for COPD PREDNISONE 05678727412 Active Tawnya Pardo MA Active PROAIR HFA 108 (90 BASE) MCG/ACT AERS 2 puffs four times a day as needed 2012 ALBUTEROL SULFATE 70423876227 Active Tawnya Pardo MA Active FLOVENT HFA 110 MCG/ACT AERO 2 puffs inhaled b.i.d. FLUTICASONE PROPIONATE HFA 16362326073 Active Tawnya Pardo MA Active ACIPHEX 20 MG TBEC 1 tab po daily RABEPRAZOLE SODIUM 71442589154 Active Tawnya Pardo MA Active CLONAZEPAM 0.5 MG TABS 1 tab po daily CLONAZEPAM 0.5 MG TABS 969768 CLONAZEPAM Inactive PREDNISONE 20 MG TAB 3 tabs today, then 1 tab twice daily for 3 day, then one daily for three days PREDNISONE 20 MG TAB 800578 PREDNISONE Inactive PREDNISONE 20 MG TAB 2 tabs daily for 4 days, 1 tab daily for 4 days, 1/2 tab daily for 4 days PREDNISONE 20 MG TAB 330732 PREDNISONE Inactive PREDNISONE 10 MG TABS 1 tab po daily PREDNISONE 10 MG TABS 302791 PREDNISONE Inactive TYLENOL EXTRA STRENGTH 500 MG TABS as needed TYLENOL EXTRA STRENGTH 500 MG TABS 338181 ACETAMINOPHEN Inactive MUPIROCIN 2 % OINT apply to affected area BID x 14 days MUPIROCIN 2 % OINT 148613 MUPIROCIN Inactive MONTELUKAST SODIUM 10 MG TABS 1 tab po in the evening MONTELUKAST SODIUM 10 MG TABS 048741 MONTELUKAST SODIUM Inactive BENZONATATE 100 MG CAPS 1 cap po TID PRN BENZONATATE 100 MG CAPS 765505 BENZONATATE Inactive NEURONTIN 300 MG CAP 1 cap by mouth three times daily for restless leg 06/22 NEURONTIN 300 MG CAP 735801 GABAPENTIN Inactive LEVAQUIN 500 MG TAB 1 tablet by mouth daily LEVAQUIN 500 MG TAB 610971 LEVOFLOXACIN Inactive PREDNISONE 20 MG TAB 1 TID x 2 days, then 1 BID x 3 days, then 1 Daily x 3 days, then stop PREDNISONE 20 MG TAB 018995 PREDNISONE Inactive POTASSIUM CHLORIDE ER 10 MEQ CR-TABS take 1 tab po daily POTASSIUM CHLORIDE ER 10 MEQ CR-TABS POTASSIUM CHLORIDE Inactive PREDNISONE 20 MG TAB 1 tab twice daily for 3 day, then one daily for three days PREDNISONE 20 MG TAB 713770 PREDNISONE Inactive TESSALON PERLES 100 MG CAP 1 to 2 tablets by mouth 3 times daily as needed for cough TESSALON PERLES 100 MG CAP 708426 BENZONATATE Inactive POTASSIUM CHLORIDE CR 10 MEQ CPCR 1 capsule by mouth daily 02/14 POTASSIUM CHLORIDE CR 10 MEQ CPCR POTASSIUM CHLORIDE Inactive NITROSTAT 0.4 MG SUBL 1 tab under tongueas needed for chest pain ( may take 3 total, 5 min apart, then call 911) NITROSTAT 0.4 MG SUBL 449775 NITROGLYCERIN Inactive LOVASTATIN 40 MG TABS 1 pill by mouth nightly for cholesterol LOVASTATIN 40 MG TABS 466017 LOVASTATIN Inactive CEFDINIR 300 MG ORAL CAPS take 1 cap po bid x 10 days CEFDINIR 300 MG ORAL CAPS 287407 CEFDINIR Inactive ACEBUTOLOL HCL 200 MG CAPS 1 cap in the morning and 2 caps in the evening ACEBUTOLOL HCL 200 MG CAPS 979114 ACEBUTOLOL HCL Inactive VENTOLIN HFA 108 (90 BASE) MCG/ACT AERS 2 -4 puffs four times a day PRN 2013 VENTOLIN HFA 108 (90 BASE) MCG/ACT AERS ALBUTEROL SULFATE Inactive LEVAQUIN 500 MG ORAL TABS Take 1 tab po daily x 8 days LEVAQUIN 500 MG ORAL TABS 723882 LEVOFLOXACIN Inactive PREDNISONE 20 MG TAB 2 tabs daily for 4 days, 1 tab daily for 4 days, 1/2 tab daily for 4 days PREDNISONE 20 MG TAB 836996 PREDNISONE Inactive LOVASTATIN 40 MG ORAL TABS Take 1 tab po every hs LOVASTATIN 40 MG ORAL TABS 636383 LOVASTATIN Inactive DILAUDID 2 MG ORAL TABS Take 1/2 tab po every 4 hours as needed for pain 2014 DILAUDID 2 MG ORAL TABS 311535 HYDROMORPHONE HCL Inactive AMITRIPTYLINE HCL 25 MG ORAL TABS 1 q hs prn AMITRIPTYLINE HCL 25 MG ORAL TABS 898247 AMITRIPTYLINE HCL Inactive MECLIZINE HCL 25 MG TAB 1 tablet three times daily for 3 days, then 1/2 tab three times daily for 3 days. MECLIZINE HCL 25 MG TAB 201205 MECLIZINE HCL Inactive AMLODIPINE BESYLATE 5 MG ORAL TABS Take 1 tab po daily AMLODIPINE BESYLATE 5 MG ORAL TABS 420749 AMLODIPINE BESYLATE Inactive TOPIRAMATE 25 MG TABS 1 tab po BID TOPIRAMATE 25 MG TABS 380716 TOPIRAMATE Inactive PREDNISONE 20 MG TAB 1 tablet twice daily for 2 days, then 1 tablet once daily for 2 days PREDNISONE 20 MG TAB 634613 PREDNISONE Inactive PREDNISONE 20 MG TAB 1 tab twice daily for 3 day, then one daily for three days PREDNISONE 20 MG TAB 683387 PREDNISONE Inactive AZITHROMYCIN 250 MG TABS 2 po qd x 1 day, then 1 po qd x 4 days AZITHROMYCIN 250 MG TABS 6940232 AZITHROMYCIN Inactive AZITHROMYCIN 250 MG TABS 2 po qd x 1 day, then 1 po qd x 4 days AZITHROMYCIN 250 MG TABS 7881465 AZITHROMYCIN Inactive PREDNISONE 20 MG TAB 2 po qd x 5 days PREDNISONE 20 MG TAB 827805 PREDNISONE Inactive Vital Signs Date Name Value [...] Magnesium - Chemistry cholesterol, serum 180 mg/dL 355-765 2825/08/08 triglyceride, serum, fasting 92 mg/dL 30-200 HDL cholesterol, serum 66 mg/dL 32-96 LDL cholesterol, serum 96 mg/dL 0-130 sodium, serum 142 mmol/L 981-496 1234/08/08 carbon dioxide, venous blood 27.4 mmol/L 21.0-32.0 [...] 10.0-20.0 Encounters Code Encounter Date Provider Facility CPT-79546 Level 3 Est. Patient 09:58:58 CDT Harinder Cr [facility] CPT-00976 Level 3 Est. Patient 12:37:21 CDT Harinder Cr [facility] CPT-84814 Level 3 Est. Patient 18:37:17 CDT Harinder Cr [facility] CPT-53479 Level 4 Est. Patient 11:15:54 CDT Nettie Newberry [facility] CPT-42419 Level 3 Est. Patient 16:42:24 CDT Harinder Hernandez [facility] CPT-44874 Level 3 Est. Patient 15:03:36 CDT Harinder Hernandez [facility] CPT-86563 Level 3 Est. Patient 15:03:20 CDT Harinder Hernandez [facility] CPT-50545 Level 3 Est. Patient 12:14:34 CDT Harinder Hernandez [facility] CPT-53085 Level 3 Est. Patient 13:47:15 CDT Harinder Hernandez [facility] CPT-09284 Level 3 Est. Patient 14:08:24 CDT Harinder Hernandez [facility] CPT-81109 Level 3 Est. Patient 10:07:15 CDT Harinder Hernandez [facility] CPT-63722 Level 3 Est. Patient 10:06:59 CDT Harinder Hernandez [facility] CPT-25021 Level 3 Est. Patient 15:53:29 CDT Jae Morgan [facility] CPT-94592 Level 3 Est. Patient 17:19:04 CDT Harinder Hernandez [facility] CPT-56679 Level 3 Est. Patient 11:13:01 CDT Harinder Hernandez [facility] CPT-85183 Level 3 Est. Patient 09:03:58 CDT Harinder Hernandez [facility] CPT-32385 Level 3 Est. Patient 14:46:45 BATCH ANALYST Harinder Hernandez [facility] CPT-39551 Level 3 Est. Patient 09:35:49 BATCH ANALYST Harinder Shaye Hernandez [facility] CPT-78526 Level 3 Est. Patient 09:29:37 BATCH ANALYST Harinder Shaye Hernandez [facility] CPT-90513 Level 3 Est. Patient 15:51:07 CDT Harinder Hernandez [facility] CPT-60414 Level 3 Est. Patient 18:13:13 CDT Harinder Hernandez [facility] CPT-63245 Level 3 Est. Patient 10:44:19 CDT Harinder Hernandez [facility] CPT-47638 Level 4 Est. Patient 10:07:19 BATCH ANALYST Harinder Cr [facility] CPT-27874 Level 3 Est. Patient 15:59:32 BATCH ANALYST Hairnder Cr [facility] Procedures Code Procedure Name Date Entry Date Standard Description CPT-TCMM Transitional Care Mgmt-Moderate 11:33:57 CDT CPT-39118 No Charge Offi Visit 14:11:29 CDT CPT-53281 Magnesium - LAB USE ONLY 10:45:44 CDT CPT-71318 Lipid - LAB USE ONLY 10:45:44 CDT CPT-76711 CBC - LAB USE ONLY 10:45:44 CDT CPT-30163 Venipuncture Draw Fee 10:45:43 CDT CPT-39785 Venipuncture Draw Fee 18:21:27 CDT CPT-JTINJ Asp/Joint Injection 18:38:04 CDT CPT-08222 Immunization Each Additional Inj 17:38:04 CDT CPT-28071 Immunization Single Admin 17:38:04 CDT CPT-97148 Prevnar 13 17:38:04 CDT CPT-05463 Fluzone Quadrivalent preservative free (>=3yrs.) 17:38: 04 CDT CPT-63128 No Charge Offi Visit 11:14:03 CDT CPT-79610 Chest 2V Frontal and Lat 14:00:18 CDT CPT-OV Office Visit 16:10:28 CDT CPT-JTINJ Asp/Joint Injection 09:03:57 CDT CPT-Cryo Cryotherapy 09:35:49 BATCH ANALYST CPT-JTINJ Asp/Joint Injection 09:34:45 BATCH ANALYST CPT-J2930 Solu Medrol 125 mg (Methyl Prednisolone Sodium Succinate) 20:37:27 CDT CPT-53459 Abx/Therapy Injection 20:37:27 CDT CPT-85736 Port a cath flush 08:15:51 CDT CPT-64660 Port a cath flush 09:54:16 CDT CPT-45623 Port a cath flush 09:38:02 CDT CPT-50457 Port a cath flush 11:00:27 BATCH ANALYST
--- OUTSIDE RECORDS SUMMARY | 2017-12-29 00:48 | XMS REPORT | Clinical Summary ---
Author Author Admin, QIE Organization [facility] [employer] Address Unknown Phone Unavailable Allergies, Adverse Reactions, [...] breast Health maintenance exam V70.0 Active Harinder Hernanedz DO Routine general medical examination at a [...] NDC Status Provider Patient Instruction POTASSIUM CHLORIDE CR 10 MEQ CPCR 1 capsule BID POTASSIUM CHLORIDE 33986299763 Active Kortney Mccain Active FLUOXETINE HCL 10 MG ORAL CAPS 1 po qd for depression/anxiety FLUOXETINE HCL 13747479957 Active Harinder Hernandez DO Active VOLTAREN 1 % GEL apply q 6-8 hour to left arm as needed for pain DICLOFENAC SODIUM 59060217353 Active Harinder Hernandez DO Active LASIX 20 MG TAB 1 tablet by mouth every morning FUROSEMIDE 38398693589 Active Kortney Mccain Active POTASSIUM CHLORIDE 20 MEQ ORAL PACK 1 tab po BID POTASSIUM CHLORIDE 69844290569 Active Kortney Mccain Active ALBUTEROL SULFATE 0.083 % NEBU SOLN 1 vial neb q 4hrs for severe asthma. 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 FLUTICASONE PROPIONATE HFA 00962331536 Active Harinder Hernandez DO Active EPIPEN 2-BRUNA 0.3 MG/0.3ML INJ SOAJ 1 INJ NEEDED EPINEPHRINE 78024149766 Active Harinder Hernandez DO Active PREDNISONE 20 MG TAB 1 tab twice daily for 3 day, then one daily for three days PREDNISONE 75512881174 No Longer Active Harinder Hernandez DO Active PREDNISONE 20 MG TAB 1 tablet twice daily for 2 days, then 1 tablet once daily for 2 days PREDNISONE 24473205766 No Longer Active Harinder Hernandez DO Active ASMANEX 120 METERED DOSES 220 MCG/INH INH AEPB 2 puffs orally twice daily MOMETASONE FUROATE 37387304018 Active Jeri Sosa LPN Active TOPIRAMATE 25 MG TABS 1 tab po BID TOPIRAMATE 46484177298 No Longer Active Nettie Newberry APRN Active AMLODIPINE BESYLATE 5 MG ORAL TABS Take 1 tab po daily AMLODIPINE BESYLATE 51841657113 No Longer Active Nettie Newberry APRN Active MECLIZINE HCL 25 MG TAB 1 tablet three times daily for 3 days, then 1/2 tab three times daily for 3 days. MECLIZINE HCL 52228960262 No Longer Active Nettie Newberry APRN Active AMITRIPTYLINE HCL 25 MG ORAL TABS 1 q hs prn AMITRIPTYLINE HCL 20904229577 No Longer Active Nettie Newberry APRN Active DILAUDID 2 MG ORAL TABS Take 1/2 tab po every 4 hours as needed for pain 2014 HYDROMORPHONE HCL 40098692995 No Longer Active Nettie Newberry APRN Active CLOPIDOGREL BISULFATE 75 MG ORAL TABS 1 tab by mouth once daily CLOPIDOGREL BISULFATE 99026806898 Active Harinder Hernandez DO Active ATORVASTATIN CALCIUM 10 MG ORAL TABS 1 at bedtime ATORVASTATIN CALCIUM 86351974851 Active Tawnya Pardo MA Active LOVASTATIN 40 MG ORAL TABS Take 1 tab po every hs LOVASTATIN 73159763099 No Longer Active Harinder Hernandez DO Active PREDNISONE 20 MG TAB 2 tabs daily for 4 days, 1 tab daily for 4 days, 1/2 tab daily for 4 days PREDNISONE 04261674308 No Longer Active Harinder Hernandez DO Active LEVAQUIN 500 MG ORAL TABS Take 1 tab po daily x 8 days LEVOFLOXACIN 64428098014 No Longer Active Harinder Hernandez DO Active VENTOLIN HFA 108 (90 BASE) MCG/ACT AERS 2 -4 puffs four times a day PRN 2013 ALBUTEROL SULFATE 78667710479 No Longer Active Jeri Sosa LPN Active ACEBUTOLOL HCL 200 MG CAPS 1 cap in the morning and 2 caps in the evening ACEBUTOLOL HCL 45192365965 No Longer Active Harinder Hernandez DO Active CEFDINIR 300 MG ORAL CAPS take 1 cap po bid x 10 days CEFDINIR 18780429091 No Longer Active Harinder Hernandez DO Active LOVASTATIN 40 MG TABS 1 pill by mouth nightly for cholesterol LOVASTATIN 87564150890 No Longer Active Nettie Newberry APRN Active NITROSTAT 0.4 MG SUBL 1 tab under tongueas needed for chest pain ( may take 3 total, 5 min apart, then call 911) NITROGLYCERIN 93444550406 No Longer Active Nettie Newberry MAHENDRA Active POTASSIUM CHLORIDE CR 10 MEQ CPCR 1 capsule by mouth daily 02/14 POTASSIUM CHLORIDE 38881494982 No Longer Active Nettie Newberry MAHENDRA Active TESSALON PERLES 100 MG CAP 1 to 2 tablets by mouth 3 times daily as needed for cough BENZONATATE 26039890826 No Longer Active Nettie Newberry MAHENDRA Active THEOPHYLLINE ER 200 MG ORAL [id number] Take 1 tab every 12 hours THEOPHYLLINE 31845130943 Active Kortney Mccain Active PREDNISONE 20 MG TAB 2 po qd x 5 days PREDNISONE 49874232426 No Longer Active Jae Morgan MD Active AZITHROMYCIN 250 MG TABS 2 po qd x 1 day, then 1 po qd x 4 days AZITHROMYCIN 86532363040 No Longer Active Jae Morgan MD Active PREDNISONE 20 MG TAB 1 tab twice daily for 3 day, then one daily for three days PREDNISONE 27019602689 No Longer Active Jae Morgan MD Active SINGULAIR 10 MG TABS 1 pill by mouth every evening for breathing. MONTELUKAST SODIUM 95190007105 Active Tawnya Pardo MA Active TYLENOL 325 MG TAB 3 by mouth q4h as needed ACETAMINOPHEN 04029502658 Active Harinder Hernandez DO Active POTASSIUM CHLORIDE ER 10 MEQ CR-TABS take 1 tab po daily POTASSIUM CHLORIDE 24238656371 No Longer Active Harinder Hernandez DO Active PREDNISONE 20 MG TAB 1 TID x 2 days, then 1 BID x 3 days, then 1 Daily x 3 days, then stop PREDNISONE 21206397537 No Longer Active Jillkvng Frashai MCCRAY Active LEVAQUIN 500 MG TAB 1 tablet by mouth daily LEVOFLOXACIN 88357129372 No Longer Active Jillina Frazell MAHENDRA Active NEURONTIN 300 MG CAP 1 cap by mouth three times daily for restless leg 06/22 GABAPENTIN 85833675275 No Longer Active Harinder Hernandez DO Active BENZONATATE 100 MG CAPS 1 cap po TID PRN BENZONATATE 01447158204 No Longer Active Harinder Hernandez DO Active MONTELUKAST SODIUM 10 MG TABS 1 tab po in the evening MONTELUKAST SODIUM 69245154290 No Longer Active Harinder Hernandez DO Active MUPIROCIN 2 % OINT apply to affected area BID x 14 days MUPIROCIN 60906633465 No Longer Active Harinder Hernandez DO Active TYLENOL EXTRA STRENGTH 500 MG TABS as needed ACETAMINOPHEN 67209071132 No Longer Active Harinder Hernandez DO Active PREDNISONE 10 MG TABS 1 tab po daily PREDNISONE 11035584115 No Longer Active Harinder Hernandez DO Active PREDNISONE 20 MG TAB 2 tabs daily for 4 days, 1 tab daily for 4 days, 1/2 tab daily for 4 days PREDNISONE 83442304240 No Longer Active Harinder Hernandez DO Active AZITHROMYCIN 250 MG TABS 2 po qd x 1 day, then 1 po qd x 4 days AZITHROMYCIN 08365872958 No Longer Active Harinder Hernandez DO Active PREDNISONE 20 MG TAB 3 tabs today, then 1 tab twice daily for 3 day, then one daily for three days PREDNISONE 12646837684 No Longer Active Harinder Hernandez DO Active NIFEDIAC CC 30 MG [id number] 1 tablet daily for raynaud's syndrome NIFEDIPINE 92315994895 No Longer Active Tawnya Pardo MA Active AMBIEN 10 MG TAB 1/2 tab by mouth at bedtime as needed for sleep ZOLPIDEM TARTRATE 50047372198 Active Ciera Pimentel Active CLONAZEPAM 1 MG TABS 1 tablet at bedtime for insomnia and restless legs 09/14 CLONAZEPAM 30491538148 Active Harinder Hernandez DO Active CLONAZEPAM 0.5 MG TABS 1 tab po daily CLONAZEPAM 71016292718 No Longer Active Harinder Hernandez DO Active PREDNISONE 10 MG TAB 1 tablet daily for COPD PREDNISONE 34549671754 Active Ciera Pimentel Active PROAIR HFA 108 (90 BASE) MCG/ACT AERS 2 puffs four times a day as needed 2012 ALBUTEROL SULFATE 95204183378 Active Harinder Hernandez DO Active FLOVENT HFA 110 MCG/ACT AERO 2 puffs inhaled b.i.d. FLUTICASONE PROPIONATE HFA 59999633941 Active Kortney Mccain Active ACIPHEX 20 MG TBEC 1 tab po daily RABEPRAZOLE SODIUM 84198822810 Active Kaylah Newberry Active CLONAZEPAM 0.5 MG TABS 1 tab po daily CLONAZEPAM 0.5 MG TABS 121492 CLONAZEPAM Inactive PREDNISONE 20 MG TAB 3 tabs today, then 1 tab twice daily for 3 day, then one daily for three days PREDNISONE 20 MG TAB 635487 PREDNISONE Inactive PREDNISONE 20 MG TAB 2 tabs daily for 4 days, 1 tab daily for 4 days, 1/2 tab daily for 4 days PREDNISONE 20 MG TAB 242340 PREDNISONE Inactive PREDNISONE 10 MG TABS 1 tab po daily PREDNISONE 10 MG TABS 999529 PREDNISONE Inactive TYLENOL EXTRA STRENGTH 500 MG TABS as needed TYLENOL EXTRA STRENGTH 500 MG TABS 331117 ACETAMINOPHEN Inactive MUPIROCIN 2 % OINT apply to affected area BID x 14 days MUPIROCIN 2 % OINT 475104 MUPIROCIN Inactive MONTELUKAST SODIUM 10 MG TABS 1 tab po in the evening MONTELUKAST SODIUM 10 MG TABS 20010818 MONTELUKAST SODIUM Inactive BENZONATATE 100 MG CAPS 1 cap po TID PRN BENZONATATE 100 MG CAPS 107154 BENZONATATE Inactive NEURONTIN 300 MG CAP 1 cap by mouth three times daily for restless leg 06/22 NEURONTIN 300 MG CAP 184605 GABAPENTIN Inactive LEVAQUIN 500 MG TAB 1 tablet by mouth daily LEVAQUIN 500 MG TAB 19980216 LEVOFLOXACIN Inactive PREDNISONE 20 MG TAB 1 TID x 2 days, then 1 BID x 3 days, then 1 Daily x 3 days, then stop PREDNISONE 20 MG TAB 567147 PREDNISONE Inactive POTASSIUM CHLORIDE ER 10 MEQ CR-TABS take 1 tab po daily POTASSIUM CHLORIDE ER 10 MEQ CR-TABS POTASSIUM CHLORIDE Inactive PREDNISONE 20 MG TAB 1 tab twice daily for 3 day, then one daily for three days PREDNISONE 20 MG TAB 767145 PREDNISONE Inactive TESSALON PERLES 100 MG CAP 1 to 2 tablets by mouth 3 times daily as needed for cough TESSALON PERLES 100 MG CAP 082007 BENZONATATE Inactive POTASSIUM CHLORIDE CR 10 MEQ CPCR 1 capsule by mouth daily 02/14 POTASSIUM CHLORIDE CR 10 MEQ CPCR POTASSIUM CHLORIDE Inactive NITROSTAT 0.4 MG SUBL 1 tab under tongueas needed for chest pain ( may take 3 total, 5 min apart, then call 911) NITROSTAT 0.4 MG SUBL 248380 NITROGLYCERIN Inactive LOVASTATIN 40 MG TABS 1 pill by mouth nightly for cholesterol LOVASTATIN 40 MG TABS 876271 LOVASTATIN Inactive CEFDINIR 300 MG ORAL CAPS take 1 cap po bid x 10 days CEFDINIR 300 MG ORAL CAPS 471748 CEFDINIR Inactive ACEBUTOLOL HCL 200 MG CAPS 1 cap in the morning and 2 caps in the evening ACEBUTOLOL HCL 200 MG CAPS 573892 ACEBUTOLOL HCL Inactive VENTOLIN HFA 108 (90 [...] for 4 days PREDNISONE 20 MG TAB 860879 PREDNISONE Inactive LOVASTATIN 40 MG ORAL TABS Take 1 tab po every hs LOVASTATIN 40 MG ORAL TABS 640610 LOVASTATIN Inactive DILAUDID 2 MG ORAL TABS Take 1/2 tab po every 4 hours as needed for pain 2014 DILAUDID 2 MG ORAL TABS 734035 HYDROMORPHONE HCL Inactive AMITRIPTYLINE HCL 25 MG ORAL TABS 1 q hs prn AMITRIPTYLINE HCL 25 MG ORAL TABS 910547 AMITRIPTYLINE HCL Inactive MECLIZINE HCL 25 MG TAB 1 tablet three times daily for 3 days, then 1/2 tab three times daily for 3 days. MECLIZINE HCL 25 MG TAB 806412 MECLIZINE HCL Inactive AMLODIPINE BESYLATE 5 MG ORAL TABS Take 1 tab po daily AMLODIPINE BESYLATE 5 MG ORAL TABS 500315 AMLODIPINE BESYLATE Inactive TOPIRAMATE 25 MG TABS 1 tab po BID TOPIRAMATE 25 MG TABS 237917 TOPIRAMATE Inactive PREDNISONE 20 MG TAB 1 tablet twice daily for 2 days, then 1 tablet once daily for 2 days PREDNISONE 20 MG TAB 489929 PREDNISONE Inactive PREDNISONE 20 MG TAB 1 tab twice daily for 3 day, then one daily for three days PREDNISONE 20 MG TAB 036782 PREDNISONE Inactive NIFEDIPINE ER 30 MG ORAL [id number] 1 daily NIFEDIPINE ER 30 MG ORAL [id number] NIFEDIPINE Inactive AMLODIPINE BESYLATE 5 MG TABS 1 tablet by mouth daily AMLODIPINE BESYLATE 5 MG TABS 146987 AMLODIPINE BESYLATE Inactive AZITHROMYCIN 250 MG TABS 2 po qd x 1 day, then 1 po qd x 4 days AZITHROMYCIN 250 MG TABS 9263697 AZITHROMYCIN Inactive AZITHROMYCIN 250 MG TABS 2 po qd x 1 day, then 1 po qd x 4 days AZITHROMYCIN 250 MG TABS 2202980 AZITHROMYCIN Inactive PREDNISONE 20 MG TAB 2 po qd x 5 days PREDNISONE 20 MG TAB 679800 PREDNISONE Inactive Vital Signs Date Name Value Unit Range Description blood pressure, diastolic 67 mm[Hg] BP adan [...] Panel - Chemistry sodium, serum 137 mmol/L 652-967 4235/01/03 potassium, serum 3.4 mmol/L 3.5-5.2 chloride, serum 102 mmol/L 98-107 carbon dioxide, venous blood 29.2 mmol/L 21.0-32.0 blood glucose 87 mg/dL 65-110 calcium, serum 8.5 mg/dL 8.5-10.1 urea nitrogen, blood 8 mg/dL 7-18 creatinine, serum 0.82 mg/dL 0.55-1.30 sodium, serum 140 mmol/L 312-899 4213/07/13 potassium, serum 3.2 mmol/L 3.5-5.2 chloride, serum [...] ... - Chemistry sodium, serum 141 mmol/L 185-497 1953 carbon dioxide, venous blood 34.0 mmol/L 21.0-32.0 [...] Magnesium - Chemistry cholesterol, serum 180 mg/dL 237-553 4152/08/08 triglyceride, serum, fasting 92 mg/dL 30-200 HDL cholesterol, serum 66 mg/dL 32-96 LDL cholesterol, serum 96 mg/dL 0-130 sodium, serum 142 mmol/L 237-130 3876/08/08 carbon dioxide, venous blood 27.4 mmol/L 21.0-32.0 [...] 10.0-20.0 Encounters Code Encounter Date Provider Facility CPT-46825 Level 4 Est. Patient 14:45:25 CDT Harinder Cr [facility] CPT-52684 Level 4 Est. Patient 09:15:13 CDT Harinder Cr [facility] CPT-12108 Level 3 Est. Patient 11:51:58 CDT Harinder Cr [facility] CPT-49534 Level 3 Est. Patient 11:30:05 CDT Harinder Hernandez [facility] CPT-70277 Level 4 Est. Patient 10:19:23 CDT Harinder Hernandez [facility] CPT-49714 Level 3 Est. Patient 09:58:58 CDT Harinder Cr [facility] CPT-72875 Level 3 Est. Patient 12:37:21 CDT Harinder Hernandez [facility] CPT-70550 Level 3 Est. Patient 18:37:17 CDT Harinder Cr [facility] CPT-11391 Level 4 Est. Patient 11:15:54 CDT Nettie Newberry APRN [facility] CPT-00492 Level 3 Est. Patient 16:42:24 CDT Harinder Cr [facility] CPT-39188 Level 3 Est. Patient 15:03:36 CDT Harinder Hernandez [facility] CPT-72022 Level 3 Est. Patient 15:03:20 CDT Harinder Cr [facility] CPT-11866 Level 3 Est. Patient 12:14:34 CDT Harinder Hernandez [facility] CPT-20496 Level 3 Est. Patient 13:47:15 CDT Harinder Hernandez [facility] CPT-79697 Level 3 Est. Patient 14:08:24 CDT Harinder Hernandez [facility] CPT-68108 Level 3 Est. Patient 10:07:15 CDT Harinder Cr [facility] CPT-88300 Level 3 Est. Patient 10:06:59 CDT Harinder Shaye [facility] CPT-45367 Level 3 Est. Patient 15:53:29 CDT Jae Morgan MD [facility] CPT-63904 Level 3 Est. Patient 17:19:04 CDT Harinder Cr [facility] CPT-45758 Level 3 Est. Patient 11:13:01 CDT Harinder Hernandez [facility] CPT-14490 Level 3 Est. Patient 09:03:58 CDT Harinder Hernandez [facility] CPT-60145 Level 3 Est. Patient 14:46:45 LEATHER DRESSER Harinder Hernandez [facility] CPT-71694 Level 3 Est. Patient 09:35:49 LEATHER DRESSER Harinder Hernandez [facility] CPT-43259 Level 3 Est. Patient 09:29:37 LEATHER DRESSER Harinder Hernandez [facility] CPT-80256 Level 3 Est. Patient 15:51:07 CDT Harinder Hernandez [facility] CPT-69401 Level 3 Est. Patient 18:13:13 CDT Harinder Cr [facility] CPT-14065 Level 3 Est. Patient 10:44:19 CDT Harinder Hernandez [facility] CPT-60966 Level 4 Est. Patient 10:07:19 LEATHER DRESSER Harinder Cr [facility] CPT-49003 Level 3 Est. Patient 15:59:32 LEATHER DRESSER Harinder Cr [facility] Procedures Code Procedure Name Date Entry Date Standard Description CPT-40569 Abd compl w upright - XRAY USE ONLY 14:48:09 CDT 02/18 CPT-90428 Port a cath flush 13:46:05 CDT CPT-72838 Hip, complete, 2-3 views - XRAY USE ONLY 10:28:40 CDT CPT-14258 BMP - LAB USE ONLY 16:45:09 LEATHER DRESSER CPT-32290 Port a cath flush 12:00:13 LEATHER DRESSER CPT-TCMM Transitional Care Mgmt-Moderate 11:20:16 LEATHER DRESSER CPT-14071 First Vx - Ix admin for Medicare patients 17:35:15 CDT CPT-42923 Fluzone Preservative Free Intramuscular Suspension 17:35 :15 CDT CPT-92389 Microalbumin - LAB USE ONLY 11:52:05 CDT CPT-TCMM Transitional Care Mgmt-Moderate 11:33:57 CDT CPT-18483 No Charge Offi Visit 14:11:29 CDT CPT-67098 Magnesium - LAB USE ONLY 10:45:44 CDT CPT-65443 Lipid - LAB USE ONLY 10:45:44 CDT CPT-07915 CBC - LAB USE ONLY 10:45:44 CDT CPT-35219 Venipuncture Draw Fee 10:45:43 CDT CPT-99940 Venipuncture Draw Fee 18:21:27 CDT CPT-JTINJ Asp/Joint Injection 18:38:04 CDT CPT-60849 Immunization Each Additional Inj 17:38:04 CDT CPT-54627 Immunization Single Admin 17:38:04 CDT CPT-67623 Prevnar 13 17:38:04 CDT CPT-88534 Fluzone Quadrivalent preservative free (>=3yrs.) 17:38: 04 CDT CPT-84749 No Charge Offi Visit 11:14:03 CDT CPT-74770 Chest 2V Frontal and Lat 14:00:18 CDT CPT-OV Office Visit 16:10:28 CDT CPT-JTINJ Asp/Joint Injection 09:03:57 CDT CPT-Cryo Cryotherapy 09:35:49 LEATHER DRESSER CPT-JTINJ Asp/Joint Injection 09:34:45 LEATHER DRESSER CPT-J2930 Solu Medrol 125 mg (Methyl Prednisolone Sodium Succinate) 20:37:27 CDT CPT-31639 Abx/Therapy Injection 20:37:27 CDT CPT-85252 Port a cath flush 08:15:51 CDT CPT-58659 Port a cath flush 09:54:16 CDT CPT-89860 Port a cath flush 09:38:02 CDT CPT-58631 Port a cath flush 11:00:27 LEATHER DRESSER
--- OUTSIDE RECORDS SUMMARY | 2017-12-29 00:49 | XMS REPORT | Clinical Summary ---
Author Author Admin, KAIN Organization [facility] Address Unknown Phone Unavailable Allergies, Adverse Reactions, Alerts Allergy Name Reaction Description Start Date Severity Status Provider AITHROMYCIN itch Moderate Active Harinder Hernandez DO NEOSPORIN Critical Active Harinder Hernandez DO TRAMADOL HCL Critical Active Harinder W David DO REQUIP Critical Active Harinder W David [...] Harinder Hernandez DO BACLOFEN Critical Active Harinder W David DO ASA Critical Active Harinder Hernandez DO [...] (RLS) Breast mass, right 611.72 Active Harinder W David DO Lump or mass in breast Health [...] positional vertigo Colon cancer screening V76.51 Active [facility] 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 Screening for malignant neoplasms of colon Screening for malignant neoplasm, colon V76.51 Active [facility] MOLD P[employer]ER Screening for malignant neoplasms of colon Nausea and vomiting ICD-787.01 Inactive Jae Morgan MD Diarrhea ICD-787.91 Inactive Jae Morgan MD Medication List Medication Instructions Start Date Stop Date Generic Name NDC Status Provider Patient Instruction AMITRIPTYLINE HCL 25 MG ORAL TABS 1 q hs prn AMITRIPTYLINE HCL 15829315925 Active Nettie Newberry APRN Active LOVASTATIN 40 MG TABS 1 pill by mouth nightly for cholesterol LOVASTATIN 65246497853 No Longer Active Nettie Newberry APRN Active NITROSTAT 0.4 MG SUBL 1 tab under tongueas needed for chest pain ( may take 3 total, 5 min apart, then call 911) NITROGLYCERIN 21233997923 No Longer Active Nettie Newberry APRN Active POTASSIUM CHLORIDE CR 10 MEQ CPCR 1 capsule by mouth daily 02/14 POTASSIUM CHLORIDE 08968435826 No Longer Active Nettie Newberry APRN Active TESSALON PERLES 100 MG CAP 1 to 2 tablets by mouth 3 times daily as needed for cough BENZONATATE 70954515742 No Longer Active Nettie Newberry APRN Active THEOPHYLLINE ER 200 MG ORAL [id number] Take 1 tab every 12 hours THEOPHYLLINE 28765708507 Active Trixie Martin LPN Active PREDNISONE 20 MG TAB 2 po qd x 5 days PREDNISONE 96876860692 No Longer Active Jae Morgan MD Active AZITHROMYCIN 250 MG TABS 2 po qd x 1 day, then 1 po qd x 4 days AZITHROMYCIN 99076389217 No Longer Active Jae Morgan MD Active PREDNISONE 20 MG TAB 1 tab twice daily for 3 day, then one daily for three days PREDNISONE 03808502799 No Longer Active Jae Morgan MD Active MECLIZINE HCL 25 MG TAB 1 tablet three times daily for 3 days, then 1/2 tab three times daily for 3 days. MECLIZINE HCL 23105738113 Active Harinder Hernandez DO Active SINGULAIR 10 MG TABS 1 pill by mouth every evening for breathing. MONTELUKAST SODIUM 07197752740 Active Harinder Hernandez DO Active TYLENOL 325 MG TAB 3 by mouth q4h as needed ACETAMINOPHEN 48478251184 Active Harinder Hernandez DO Active POTASSIUM CHLORIDE ER 10 MEQ CR-TABS take 1 tab po daily POTASSIUM CHLORIDE 67930769425 No Longer Active Harinder Hernandez DO Active PREDNISONE 20 MG TAB 1 TID x 2 days, then 1 BID x 3 days, then 1 Daily x 3 days, then stop PREDNISONE 65163422781 No Longer Active Jillina Frazell MOLD PULLER Active LEVAQUIN 500 MG TAB 1 tablet by mouth daily LEVOFLOXACIN 61366900153 No Longer Active Jillina Frazell MOLD PULLER Active NEURONTIN 300 MG CAP 1 cap by mouth three times daily for restless leg 06/22 GABAPENTIN 42087638285 No Longer Active Harinder Hernandez DO Active BENZONATATE 100 MG CAPS 1 cap po TID PRN BENZONATATE 63349957258 No Longer Active Harinder Hernandez DO Active MONTELUKAST SODIUM 10 MG TABS 1 tab po in the evening MONTELUKAST SODIUM 70593053872 No Longer Active Harinder Hernandez DO Active MUPIROCIN 2 % OINT apply to affected area BID x 14 days MUPIROCIN 37545730449 No Longer Active Harinder Hernandez DO Active TYLENOL EXTRA STRENGTH 500 MG TABS as needed ACETAMINOPHEN 24611319203 No Longer Active Harinder Hernandez DO Active PREDNISONE 10 MG TABS 1 tab po daily PREDNISONE 30182749225 No Longer Active Harinder Hernandez DO Active PREDNISONE 20 MG TAB 2 tabs daily for 4 days, 1 tab daily for 4 days, 1/2 tab daily for 4 days PREDNISONE 42544535245 No Longer Active Harinder Hernandez DO Active AZITHROMYCIN 250 MG TABS 2 po qd x 1 day, then 1 po qd x 4 days AZITHROMYCIN 76118821594 No Longer Active Harinder Hernandez DO Active PREDNISONE 20 MG TAB 3 tabs today, then 1 tab twice daily for 3 day, then one daily for three days PREDNISONE 40091390814 No Longer Active Harinder Hernandez DO Active NIFEDIAC CC 30 MG [id number] 1 tablet daily for raynaud's syndrome NIFEDIPINE 49817211131 Active Lobito Smith MD Active AMBIEN 10 MG TAB 1/2 tab by mouth at bedtime as needed for sleep ZOLPIDEM TARTRATE 71615671555 Active Johny Dawkins MD Active VENTOLIN HFA 108 (90 BASE) MCG/ACT AERS 2 -4 puffs four times a day PRN 2013 ALBUTEROL SULFATE 70201334689 Active Lobito Smith MD Active CLONAZEPAM 1 MG TABS 1 tablet at bedtime for insomnia and restless legs 09/14 CLONAZEPAM 57923475662 Active Harinder Hernandez DO Active CLONAZEPAM 0.5 MG TABS 1 tab po daily CLONAZEPAM 71248662238 No Longer Active Harinder Hernandez DO Active PREDNISONE 10 MG TAB 1 tablet daily for COPD PREDNISONE 57565313104 Active Harinder Hernandez DO Active PROAIR HFA 108 (90 BASE) MCG/ACT AERS 2 puffs four times a day as needed 2012 ALBUTEROL SULFATE 62546747819 Active Harinder Hernandez DO Active FLOVENT HFA 110 MCG/ACT AERO 2 puffs inhaled b.i.d. FLUTICASONE PROPIONATE HFA 03487122877 Active Harinder Hernandez DO Active EPIPEN 0.3 MG/0.3ML URIEL DIRECTED EPINEPHRINE Active Demetrius JOHNSON Active ACIPHEX 20 MG TBEC 1 tab po daily RABEPRAZOLE SODIUM 97247533893 Active Harinder Hernandez DO Active TOPIRAMATE 25 MG TABS 1 tab po BID TOPIRAMATE 92684493779 Active Lobito Smith MD Active ACEBUTOLOL HCL 200 MG CAPS 1 cap in the morning and 2 caps in the evening ACEBUTOLOL HCL 62927857143 Active Harinder Hernandez DO Active CLONAZEPAM 0.5 MG TABS 1 tab po daily CLONAZEPAM 0.5 MG TABS 228378 CLONAZEPAM Inactive PREDNISONE 20 MG TAB 3 tabs today, then 1 tab twice daily for 3 day, then one daily for three days PREDNISONE 20 MG TAB 066264 PREDNISONE Inactive PREDNISONE 20 MG TAB 2 tabs daily for 4 days, 1 tab daily for 4 days, 1/2 tab daily for 4 days PREDNISONE 20 MG TAB 913353 PREDNISONE Inactive PREDNISONE 10 MG TABS 1 tab po daily PREDNISONE 10 MG TABS 333148 PREDNISONE Inactive TYLENOL EXTRA STRENGTH 500 MG TABS as needed TYLENOL EXTRA STRENGTH 500 MG TABS 408904 ACETAMINOPHEN Inactive MUPIROCIN 2 % OINT apply to affected area BID x 14 days MUPIROCIN 2 % OINT 139308 MUPIROCIN Inactive MONTELUKAST SODIUM 10 MG TABS 1 tab po in the evening MONTELUKAST SODIUM 10 MG TABS 173326 MONTELUKAST SODIUM Inactive BENZONATATE 100 MG CAPS 1 cap po TID PRN BENZONATATE 100 MG CAPS 949626 BENZONATATE Inactive NEURONTIN 300 MG CAP 1 cap by mouth three times daily for restless leg 06/22 NEURONTIN 300 MG CAP 159013 GABAPENTIN Inactive LEVAQUIN 500 MG TAB 1 tablet by mouth daily LEVAQUIN 500 MG TAB 186918 LEVOFLOXACIN Inactive PREDNISONE 20 MG TAB 1 TID x 2 days, then 1 BID x 3 days, then 1 Daily x 3 days, then stop PREDNISONE 20 MG TAB 859719 PREDNISONE Inactive POTASSIUM CHLORIDE ER 10 MEQ CR-TABS take 1 tab po daily POTASSIUM CHLORIDE ER 10 MEQ CR-TABS POTASSIUM CHLORIDE Inactive PREDNISONE 20 MG TAB 1 tab twice daily for 3 day, then one daily for three days PREDNISONE 20 MG TAB 006088 PREDNISONE Inactive TESSALON PERLES 100 MG CAP 1 to 2 tablets by mouth 3 times daily as needed for cough TESSALON PERLES 100 MG CAP 547373 BENZONATATE Inactive POTASSIUM CHLORIDE CR 10 MEQ [...] nightly for cholesterol LOVASTATIN 40 MG TABS 973339 LOVASTATIN Inactive AZITHROMYCIN 250 MG TABS 2 po qd x 1 day, then 1 po qd x 4 days AZITHROMYCIN 250 MG TABS 1225098 AZITHROMYCIN Inactive AZITHROMYCIN 250 MG TABS 2 po qd x 1 day, then 1 po qd x 4 days AZITHROMYCIN 250 MG TABS 3785973 AZITHROMYCIN Inactive PREDNISONE 20 MG TAB 2 po qd x 5 days PREDNISONE 20 MG TAB 917361 PREDNISONE Inactive Vital Signs Date Name Value [...] E&M - 3141-9 131.2 [lb_av] Weight Measured blood pressure, diastolic - 8462-4 66 mm[Hg] BP adan blood pressure, systolic - 8480-6 103 mm[Hg] BP sys pulse rate E&M - 8867-4 73 /min Heart rate temperature E&M 98.6 [degF] Body temperature weight E&M - 3141-9 128.2 [lb_av] Weight Measured blood pressure, diastolic - 8462-4 74 mm[Hg] BP adan blood pressure, systolic - 8480-6 122 mm[Hg] BP sys pulse rate E&M - 8867-4 76 /min Heart rate temperature E&M 98.0 [degF] Body temperature weight E&M - 3141-9 130 [lb_av] Weight Measured blood pressure, diastolic - 8462-4 70 mm[Hg] BP adan blood pressure, systolic - 8480-6 103 mm[Hg] BP sys pulse rate E&M - 8867-4 59 /min Heart rate temperature E&M 96.5 [degF] Body temperature weight E&M - 3141-9 128 [lb_av] Weight Measured blood pressure, diastolic - 8462-4 78 mm[Hg] BP adan blood pressure, systolic - 8480-6 119 mm[Hg] BP sys height E&M - 8302-2 64 [in_us] Bdy height pulse rate E&M - 8867-4 76 /min Heart rate temperature E&M 97.7 [degF] Body temperature weight E&M - 3141-9 123.38 [lb_av] Weight Measured Diagnostic Results Date Name Value Unit Range Description Lab Report: CBC W/DIFF, Comp. Metabolic Panel, UADIP W/MICRO, AUTO - Chemistry sodium, serum 141 mmol/L 014-431 3164/03/02 potassium, serum 3.4 mmol/L 3.5-5.2 chloride, serum 100 mmol/L 98-107 carbon dioxide, venous blood 32.2 mmol/L 21.0-32.0 blood glucose 79 mg/dL 65-110 urea nitrogen, blood 8 mg/dL 7-18 creatinine, serum 1.10 mg/dL 0.60-1.30 alanine aminotransferase (SGPT), serum 36 U/L 12-78 aspartate aminotransferase (SGOT), serum 34 U/L 15-37 calcium, serum 9.1 mg/dL 8.5-10.1 bilirubin, serum, total 0.80 mg/dL 0.00-1.00 protein, total urine random Negative mg/dL Negative RBC, urine, dipstick 2+ Negative Lab Report: CBC W/DIFF, Comp. Metabolic Panel, UADIP W/MICRO, AUTO - Hematology leukocyte count, blood 5.8 10^3/MM^3 10*3/mm3 4.6-10.2 neutrophils as percent of blood leukocytes 55.7 % 42.2-75.2 monocytes as percent of blood leukocytes 7.9 % 1.7-9.3 lymphocytes as percent of blood leukocytes 33.6 % 20.5-51.1 erythrocyte (RBC) count 4.34 10^6/MM^3 10*6/mm3 4.04-5.48 hemoglobin, blood 14.4 g/dL 12.0-16.0 hematocrit, blood 42.1 % 36.0-46.0 mean corpuscular volume, RBC 97 fL 80-97 mean corpuscular hemoglobin, RBC 33.2 pg 27.0-31.2 mean corpuscular hemoglobin concentration, RBC 34.2 G/DL % 31.8- 35.4 red blood cell distribution width 13.0 % 11.6-14.8 platelet count 221 10^3/MM^3 10*3/mm3 142-424 Lab Report: CBC W/DIFF, Comp. Metabolic Panel, UADIP W/MICRO, AUTO - Urinalysis urobilinogen, urine, semiquantitative (dipstick) 0.2 Normal leukocyte esterase, urine, by dipstick Negative Negative nitrite, urine, semiquantitative Negative Negative glucose, urine, semiquantitative Negative Negative ketones, urine, by test strip Negative Negative bilirubin, urine Negative Negative urine color Yellow Colorless;Lightyellow;Straw;Yellow appearance, urine Clear Clear specific gravity, urine 1.020 1.000-1.030 pH, urine, semiquantitative 5.5 5.0-8.5 Lab Report: CBC, Comp. Metabolic Panel, Thyroid Stimulating Hormone (L), ... - Chemistry sodium, serum 139 mmol/L 800-752 6270/11/24 potassium, serum 4.0 mmol/L 3.5-5.2 chloride, serum 101 mmol/L 98-107 carbon dioxide, venous blood 31.6 mmol/L 21.0-32.0 blood glucose 82 mg/dL 65-110 urea nitrogen, blood 9 mg/dL 7-18 creatinine, serum 0.90 mg/dL 0.60-1.30 alanine aminotransferase (SGPT), serum 20 U/L 12-78 aspartate aminotransferase (SGOT), serum 19 U/L 15-37 calcium, serum 9.1 mg/dL 8.5-10.1 bilirubin, serum, total 0.50 mg/dL 0.00-1.00 TSH 1.93 m[iU]/mL 0.36-3.74 cholesterol, serum 248 mg/dL 831-781 4743/11/24 triglyceride, serum, fasting 104 mg/dL 30-200 HDL cholesterol, serum 65 mg/dL 32-96 LDL cholesterol, serum 162 mg/dL 0-130 Lab Report: CBC, Comp. Metabolic Panel, Thyroid Stimulating Hormone (L), ... - Hematology leukocyte count, blood 5.5 10^3/MM^3 10*3/mm3 4.6-10.2 erythrocyte (RBC) count 4.11 10^6/MM^3 10*6/mm3 4.04-5.48 hemoglobin, blood 13.9 g/dL 12.0-16.0 hematocrit, blood 40.4 % 36.0-46.0 mean corpuscular volume, RBC 98 fL 80-97 mean corpuscular hemoglobin, RBC 33.7 pg 27.0-31.2 mean corpuscular hemoglobin concentration, RBC 34.4 G/DL % 31.8- 35.4 red blood cell distribution width 13.9 % 11.6-14.8 platelet count 236 10^3/MM^3 10*3/mm3 142-424 Lab Report: THEOPHYLLINE - Toxicology theophylline level, serum <2.5 mg/L ug/mL 10.0-20.0 Encounters Code Encounter Date Provider Facility CPT-09796 Level 3 Est. Patient 10:07:15 CDT Harinder Hernandez [facility] CPT-59731 Level 3 Est. Patient 10:06:59 CDT Harinder Hernandez [facility] CPT-73661 Level 3 Est. Patient 15:53:29 CDT Jea Morgan MD [facility] CPT-61125 Level 3 Est. Patient 17:19:04 CDT Harinder Hernandez [facility] CPT-61977 Level 3 Est. Patient 11:13:01 CDT Harinder Hernandez [facility] CPT-63455 Level 3 Est. Patient 09:03:58 CDT Harinder Hernandez [facility] CPT-28830 Level 3 Est. Patient 14:46:45 [employer]ER Harinder Hernandez [facility] CPT-72509 Level 3 Est. Patient 09:35:49 [employer] Harinder Hernandez [facility] CPT-54017 Level 3 Est. Patient 09:29:37 [employer]ER Harinder Hernandez [facility] CPT-84765 Level 3 Est. Patient 15:51:07 CDT Harinder Hernandez [facility] CPT-57155 Level 3 Est. Patient 18:13:13 CDT Harinder Hernandez [facility] CPT-41953 Level 3 Est. Patient 10:44:19 CDT Harinder Hernandez [facility] CPT-87923 Level 4 Est. Patient 10:07:19 HORN PLAYER Harinder Cr [facility] CPT-45137 Level 3 Est. Patient 15:59:32 HORN PLAYER Harinder Cr [facility] Procedures Code Procedure Name Date Entry Date Standard Description CPT-OV Office Visit 16:10:28 CDT CPT-JTINJ Asp/Joint Injection 09:03:57 CDT CPT-Cryo Cryotherapy 09:35:49 HORN PLAYER CPT-JTINJ Asp/Joint Injection 09:34:45 [employer]ER CPT-J2930 Solu Medrol 125 mg (Methyl Prednisolone Sodium Succinate) 20:37:27 CDT CPT-02818 Abx/Therapy Injection 20:37:27 CDT CPT-35655 Port a cath flush 08:15:51 CDT CPT-74251 Port a cath flush 09:54:16 CDT CPT-48149 Port a cath flush 09:38:02 CDT CPT-82193 Port a cath flush 11:00:27 HORN PLAYER
--- OUTSIDE RECORDS SUMMARY | 2017-12-29 00:49 | XMS REPORT ---
Author Author [facility] Medical Staff Organization [facility] Address [address], [place] [address] Phone [phone] Care Team Providers Care Insulation Manager Name Role Phone REBEKAH PINO SAIGE PP [phone] SAIGE WELCH DO, PP [phone] Summary purpose TRANSITION OF CARE AUTO GENERATION [...] tests and/or laboratory data RESULTS Radiology Results [id number]:05:00 Chest XRay - Port - 1 View [...] on 2015-11-07 at 16:05:33. Previous status was CA. PAC PLACEMENT History of procedures No procedures recorded for this patient visit. Functional status Functional Status Finding Observation Time Hearing Prob Loc none [id number]:00 Vision Problems yes 21-91-337714:00 Vision Correct Dev glasses 82-04-225363:00 Ambulation Asst Dev none :00 Range of Motion full :20 Muscle Strength RUE 5 ROM full resist :20 Muscle Strength RLE 5 ROM full resist :20 Muscle Strength LUE 5 ROM full resist :20 Muscle Strength LLE 5 ROM full resist :20 Transfers assist x 1 :20 Ambulation in room : Balance unsteady :20 Bathing Assistance none :00 Eating Assistance none :00 Dressing Assistance none :00 Toileting Assistance none :00 Transfer Assistance none :00 Decline Slf Care/Mob no :00 Phys Cond Stable yes :00 Nutrition normal :20 Diet regular :20 Oral Cavity moist and intact :20 Teeth dentures :20 Dental Hygiene good :20 Abdomen Appearance flat :20 Abdomen soft :20 Bowel Sounds present :20 NG Tube no :20 Feeding Tube none :20 Wallace no :20 Cont Bladder Irr no :20 Ostomy no :20 Stool normal :20 Urination normal 95-64-820355:20 Quality sym/unlabored :20 Cough absent :20 Breath Sounds RUL clear :20 Breath Sounds RML clear :20 Breath Sounds RLL clear :20 Breath Sounds LASHELL clear :20 Breath Sounds LLL clear :20 Airway natural :20 Chest Tube no :20 Oxygen no :30 C-PAP no :20 BI-PAP no :20 Temp >100.4 no : Temp <96.8 no :20 Chills with rigors no :20 HR > 90bpm no :20 Respirations > [...] Alessio 20 :50 IV Site Appearance WNL :50 IV Site Color clear :50 IV Site Patent yes :59 Dressing Changed yes :59 Dressing Type gauze 07-95-109226:50 Nursing Note Pt escorted to the west entrance, via W/C, with all belongings et in good condition. Daughter is driving pt home. :05 Cognitive Status Finding Observation Time Learning Ability comprehends well :20 Neurological no :20 Psychological no :20 Physical no :20 Hearing no :20 Chief Information Security Officer Needed no :20 Sign Language no :20 Emotional no :20 Vision no :20 Laguage no :20 Financial no :20 Vital signs Type Value Date Respiration Rate 16breaths per minute : Pulse 62beats per minute :30 Oxygen Saturation 99% :30 BP Systolic 112mmHg :30 BP Diastolic 59mmHg 06-82-445812:30 Temperature 97.0F 08-39-963013:18 Height 64inches :18 Weight 125LB 00-31-061035:18 Social history Type Value Smoking Status NEVER SMOKER Treatment Plan No treatment plan text is available for this visit. Hospital discharge instructions Valuables no PNE Vac 2015 Flu Vac 2014 Tetanus Vac 2013
--- OUTSIDE RECORDS SUMMARY | 2017-12-29 00:51 | XMS REPORT | Clinical Summary ---
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 Harinder Hernandze DO Unspecified late effects of cerebrovascular disease [...] with right hemiparesis 438.20 Active Harinder Cr Daivd DO Hemiplegia affecting unspecified side as late [...] MG/0.3ML INJ SOAJ 1 INJ NEEDED EPINEPHRINE 10821395229 Active Tawnya Pardo MA Active PREDNISONE 20 MG TAB 1 tab twice daily for 3 day, then one daily for three days PREDNISONE 02683582949 No Longer Active Harinder Hernandez DO Active PREDNISONE 20 MG TAB 1 tablet twice daily for 2 days, then 1 tablet once daily for 2 days PREDNISONE 71259612462 No Longer Active Harinder Hernandez DO Active ASMANEX 120 METERED DOSES 220 MCG/INH INH AEPB 2 puffs orally twice daily MOMETASONE FUROATE 68512060867 Active Jeri Sosa RPT,RMA Active NIFEDIPINE ER 30 MG ORAL [id number] 1 daily NIFEDIPINE 95489994103 Active Tawnya Pardo MA Active TOPIRAMATE 25 MG TABS 1 tab po BID TOPIRAMATE 00706247584 No Longer Active Nettie Newberry APRN Active AMLODIPINE BESYLATE 5 MG ORAL TABS Take 1 tab po daily AMLODIPINE BESYLATE 06240355189 No Longer Active Nettie Newberry APRN Active MECLIZINE HCL 25 MG TAB 1 tablet three times daily for 3 days, then 1/2 tab three times daily for 3 days. MECLIZINE HCL 12849729856 No Longer Active Nettie Newberry APRN Active AMITRIPTYLINE HCL 25 MG ORAL TABS 1 q hs prn AMITRIPTYLINE HCL 08528920778 No Longer Active Nettie Newberry APRN Active DILAUDID 2 MG ORAL TABS Take 1/2 tab po every 4 hours as needed for pain 2014 HYDROMORPHONE HCL 43108156854 No Longer Active Nettie Newberry APRN Active CLOPIDOGREL BISULFATE 75 MG ORAL TABS 1 tab by mouth once daily CLOPIDOGREL BISULFATE 87317635861 Active Tawnya Pardo MA Active ATORVASTATIN CALCIUM 10 MG ORAL TABS 1 at bedtime ATORVASTATIN CALCIUM 09150485753 Active Tawnya Pardo MA Active LOVASTATIN 40 MG ORAL TABS Take 1 tab po every hs LOVASTATIN 98655668435 No Longer Active Harinder Hernandez DO Active PREDNISONE 20 MG TAB 2 tabs daily for 4 days, 1 tab daily for 4 days, 1/2 tab daily for 4 days PREDNISONE 77577898616 No Longer Active Harinder Hernandez DO Active LEVAQUIN 500 MG ORAL TABS Take 1 tab po daily x 8 days LEVOFLOXACIN 08365544626 No Longer Active Harinder Hernandez DO Active VENTOLIN HFA 108 (90 BASE) MCG/ACT AERS 2 -4 puffs four times a day PRN 2013 ALBUTEROL SULFATE 53391015776 No Longer Active Jeri Sosa RPT,RMA Active ACEBUTOLOL HCL 200 MG CAPS 1 cap in the morning and 2 caps in the evening ACEBUTOLOL HCL 96137448613 No Longer Active Harinder Hernandez DO Active CEFDINIR 300 MG ORAL CAPS take 1 cap po bid x 10 days CEFDINIR 09408571579 No Longer Active Harinder Hernandez DO Active LOVASTATIN 40 MG TABS 1 pill by mouth nightly for cholesterol LOVASTATIN 04033261841 No Longer Active Nettie Newberry APRN Active NITROSTAT 0.4 MG SUBL 1 tab under tongueas needed for chest pain ( may take 3 total, 5 min apart, then call 911) NITROGLYCERIN 84863446078 No Longer Active Nettie Newberry APRN Active POTASSIUM CHLORIDE CR 10 MEQ CPCR 1 capsule by mouth daily 02/14 POTASSIUM CHLORIDE 32483338679 No Longer Active Nettie Newberry APRN Active TESSALON PERLES 100 MG CAP 1 to 2 tablets by mouth 3 times daily as needed for cough BENZONATATE 27317565622 No Longer Active Nettie Newberry APRN Active THEOPHYLLINE ER 200 MG ORAL [id number] Take 1 tab every 12 hours THEOPHYLLINE 06166793504 Active Tawnya Pardo MA Active PREDNISONE 20 MG TAB 2 po qd x 5 days PREDNISONE 76649593316 No Longer Active Jae Morgan MD Active AZITHROMYCIN 250 MG TABS 2 po qd x 1 day, then 1 po qd x 4 days AZITHROMYCIN 37206970818 No Longer Active Jae Morgan MD Active PREDNISONE 20 MG TAB 1 tab twice daily for 3 day, then one daily for three days PREDNISONE 74061317912 No Longer Active Jae Morgan MD Active SINGULAIR 10 MG TABS 1 pill by mouth every evening for breathing. MONTELUKAST SODIUM 65572599095 Active Tawnya Pardo MA Active TYLENOL 325 MG TAB 3 by mouth q4h as needed ACETAMINOPHEN 77735993916 Active Harinder Hernandez DO Active POTASSIUM CHLORIDE ER 10 MEQ CR-TABS take 1 tab po daily POTASSIUM CHLORIDE 90283056143 No Longer Active Harinder Hernandez DO Active PREDNISONE 20 MG TAB 1 TID x 2 days, then 1 BID x 3 days, then 1 Daily x 3 days, then stop PREDNISONE 85116774772 No Longer Active Derrickllkvng Montemayor APRN Active LEVAQUIN 500 MG TAB 1 tablet by mouth daily LEVOFLOXACIN 84201413842 No Longer Active Jillkvng Montemayor APRN Active NEURONTIN 300 MG CAP 1 cap by mouth three times daily for restless leg 06/22 GABAPENTIN 36240504828 No Longer Active Harinder Hernandez DO Active BENZONATATE 100 MG CAPS 1 cap po TID PRN BENZONATATE 68850058452 No Longer Active Harinder Hernandez DO Active MONTELUKAST SODIUM 10 MG TABS 1 tab po in the evening MONTELUKAST SODIUM 38443543217 No Longer Active Harinder Hernandez DO Active MUPIROCIN 2 % OINT apply to affected area BID x 14 days MUPIROCIN 40607315120 No Longer Active Harinder Hernandez DO Active TYLENOL EXTRA STRENGTH 500 MG TABS as needed ACETAMINOPHEN 42349941890 No Longer Active Harinder Hernandez DO Active PREDNISONE 10 MG TABS 1 tab po daily PREDNISONE 67356251416 No Longer Active Harinder Hernandez DO Active PREDNISONE 20 MG TAB 2 tabs daily for 4 days, 1 tab daily for 4 days, 1/2 tab daily for 4 days PREDNISONE 36441141159 No Longer Active Harinder Hernandez DO Active AZITHROMYCIN 250 MG TABS 2 po qd x 1 day, then 1 po qd x 4 days AZITHROMYCIN 20803495370 No Longer Active Harinder Hernandez DO Active PREDNISONE 20 MG TAB 3 tabs today, then 1 tab twice daily for 3 day, then one daily for three days PREDNISONE 89080751417 No Longer Active Harinder Hernandez DO Active NIFEDIAC CC 30 MG [id number] 1 tablet daily for raynaud's syndrome NIFEDIPINE 63714633381 No Longer Active Tawnya Pardo MA Active AMBIEN 10 MG TAB 1/2 tab by mouth at bedtime as needed for sleep ZOLPIDEM TARTRATE 06350198497 Active Harinder Hernandez DO Active CLONAZEPAM 1 MG TABS 1 tablet at bedtime for insomnia and restless legs 09/14 CLONAZEPAM 72082419513 Active Kaylah Newberry Active CLONAZEPAM 0.5 MG TABS 1 tab po daily CLONAZEPAM 78924674638 No Longer Active Harinder Hernandez DO Active PREDNISONE 10 MG TAB 1 tablet daily for COPD PREDNISONE 72446398777 Active Tawnya Pardo MA Active PROAIR HFA 108 (90 BASE) MCG/ACT AERS 2 puffs four times a day as needed 2012 ALBUTEROL SULFATE 61163765594 Active Tawnya Pardo MA Active FLOVENT HFA 110 MCG/ACT AERO 2 puffs inhaled b.i.d. FLUTICASONE PROPIONATE HFA 43477430084 Active Tawnya Pardo MA Active ACIPHEX 20 MG TBEC 1 tab po daily RABEPRAZOLE SODIUM 30012437603 Active Tawnya Pardo MA Active CLONAZEPAM 0.5 MG TABS 1 tab po daily CLONAZEPAM 0.5 MG TABS 158733 CLONAZEPAM Inactive PREDNISONE 20 MG TAB 3 tabs today, then 1 tab twice daily for 3 day, then one daily for three days PREDNISONE 20 MG TAB 645468 PREDNISONE Inactive PREDNISONE 20 MG TAB 2 tabs daily for 4 days, 1 tab daily for 4 days, 1/2 tab daily for 4 days PREDNISONE 20 MG TAB 198623 PREDNISONE Inactive PREDNISONE 10 MG TABS 1 tab po daily PREDNISONE 10 MG TABS 991523 PREDNISONE Inactive TYLENOL EXTRA STRENGTH 500 MG TABS as needed TYLENOL EXTRA STRENGTH 500 MG TABS 005228 ACETAMINOPHEN Inactive MUPIROCIN 2 % OINT apply to affected area BID x 14 days MUPIROCIN 2 % OINT 120609 MUPIROCIN Inactive MONTELUKAST SODIUM 10 MG TABS 1 tab po in the evening MONTELUKAST SODIUM 10 MG TABS 468690 MONTELUKAST SODIUM Inactive BENZONATATE 100 MG CAPS 1 cap po TID PRN BENZONATATE 100 MG CAPS 019221 BENZONATATE Inactive NEURONTIN 300 MG CAP 1 cap by mouth three times daily for restless leg 06/22 NEURONTIN 300 MG CAP 875078 GABAPENTIN Inactive LEVAQUIN 500 MG TAB 1 tablet by mouth daily LEVAQUIN 500 MG TAB 153830 LEVOFLOXACIN Inactive PREDNISONE 20 MG TAB 1 TID x 2 days, then 1 BID x 3 days, then 1 Daily x 3 days, then stop PREDNISONE 20 MG TAB 103473 PREDNISONE Inactive POTASSIUM CHLORIDE ER 10 MEQ CR-TABS take 1 tab po daily POTASSIUM CHLORIDE ER 10 MEQ CR-TABS POTASSIUM CHLORIDE Inactive PREDNISONE 20 MG TAB 1 tab twice daily for 3 day, then one daily for three days PREDNISONE 20 MG TAB 950493 PREDNISONE Inactive TESSALON PERLES 100 MG CAP 1 to 2 tablets by mouth 3 times daily as needed for cough TESSALON PERLES 100 MG CAP 235216 BENZONATATE Inactive POTASSIUM CHLORIDE CR 10 MEQ [...] nightly for cholesterol LOVASTATIN 40 MG TABS 014520 LOVASTATIN Inactive CEFDINIR 300 MG ORAL CAPS take 1 cap po bid x 10 days CEFDINIR 300 MG ORAL CAPS 028504 CEFDINIR Inactive ACEBUTOLOL HCL 200 MG CAPS 1 cap in the morning and 2 caps in the evening ACEBUTOLOL HCL 200 MG CAPS 112562 ACEBUTOLOL HCL Inactive VENTOLIN HFA 108 (90 BASE) MCG/ACT AERS 2 -4 puffs four times a day PRN 2013 VENTOLIN HFA 108 (90 BASE) MCG/ACT AERS ALBUTEROL SULFATE Inactive LEVAQUIN 500 MG ORAL TABS Take 1 tab po daily x 8 days LEVAQUIN 500 MG ORAL TABS 842161 LEVOFLOXACIN Inactive PREDNISONE 20 MG TAB 2 tabs daily for 4 days, 1 tab daily for 4 days, 1/2 tab daily for 4 days PREDNISONE 20 MG TAB 242991 PREDNISONE Inactive LOVASTATIN 40 MG ORAL TABS Take 1 tab po every hs LOVASTATIN 40 MG ORAL TABS 292055 LOVASTATIN Inactive DILAUDID 2 MG ORAL TABS Take 1/2 tab po every 4 hours as needed for pain 2014 DILAUDID 2 MG ORAL TABS 353992 HYDROMORPHONE HCL Inactive AMITRIPTYLINE HCL 25 MG ORAL TABS 1 q hs prn AMITRIPTYLINE HCL 25 MG ORAL TABS 921967 AMITRIPTYLINE HCL Inactive MECLIZINE HCL 25 MG TAB 1 tablet three times daily for 3 days, then 1/2 tab three times daily for 3 days. MECLIZINE HCL 25 MG TAB 750031 MECLIZINE HCL Inactive AMLODIPINE BESYLATE 5 MG ORAL TABS Take 1 tab po daily AMLODIPINE BESYLATE 5 MG ORAL TABS 345060 AMLODIPINE BESYLATE Inactive TOPIRAMATE 25 MG TABS 1 tab po BID TOPIRAMATE 25 MG TABS 137714 TOPIRAMATE Inactive PREDNISONE 20 MG TAB 1 tablet twice daily for 2 days, then 1 tablet once daily for 2 days PREDNISONE 20 MG TAB 700042 PREDNISONE Inactive PREDNISONE 20 MG TAB 1 tab twice daily for 3 day, then one daily for three days PREDNISONE 20 MG TAB 420900 PREDNISONE Inactive AZITHROMYCIN 250 MG TABS 2 po qd x 1 day, then 1 po qd x 4 days AZITHROMYCIN 250 MG TABS 6343898 AZITHROMYCIN Inactive AZITHROMYCIN 250 MG TABS 2 po qd x 1 day, then 1 po qd x 4 days AZITHROMYCIN 250 MG TABS 7915165 AZITHROMYCIN Inactive PREDNISONE 20 MG TAB 2 po qd x 5 days PREDNISONE 20 MG TAB 026026 PREDNISONE Inactive Vital Signs Date Name Value [...] E&M - 3141-9 121.8 [lb_av] Weight Measured Diagnostic Results Date Name Value Unit Range Description Lab Report: CBC - Hematology leukocyte count, blood 5.6 10^3/MM^3 10*3/mm3 4.6-10.2 mean corpuscular hemoglobin concentration, RBC 34.3 G/DL % 31.8- 35.4 red blood cell distribution width 13.9 % 11.6-14.8 platelet count 182 10^3/MM^3 10*3/mm3 440-785 4642/08/08 erythrocyte (RBC) count 4.09 10^6/MM^3 10*6/mm3 4.04-5.48 hemoglobin, blood 13.4 g/dL 12.0-16.0 hematocrit, blood 39.2 % 36.0-46.0 mean corpuscular volume, RBC 96 fL 80-97 mean corpuscular hemoglobin, RBC 32.8 pg 27.0-31.2 Lab Report: Lipid Panel, Comp. Metabolic Panel, [...] 0.40 mg/dL 0.00-1.00 sodium, serum 142 mmol/L 525-974 9674/08/08 LDL cholesterol, serum 96 mg/dL 0-130 HDL cholesterol, serum 66 mg/dL 32-96 triglyceride, serum, fasting 92 mg/dL 30-200 cholesterol, serum 180 mg/dL 130-200 Lab Report: THEOPHYLLINE - Toxicology theophylline level, serum <2.5 mg/L ug/mL 10.0-20.0 Encounters Code Encounter Date Provider Facility CPT-78484 Level 3 Est. Patient 09:58:58 CDT Harinder Cr [facility] CPT-05657 Level 3 Est. Patient 12:37:21 CDT Harinder Hernandez [facility] CPT-64148 Level 3 Est. Patient 18:37:17 CDT Harinder Cr [facility] CPT-39832 Level 4 Est. Patient 11:15:54 CDT Nettie Newberry APRN [facility] CPT-05688 Level 3 Est. Patient 16:42:24 CDT Harinder Cr [facility] CPT-17794 Level 3 Est. Patient 15:03:36 CDT Harinder Hernandez [facility] CPT-34589 Level 3 Est. Patient 15:03:20 CDT Harinder Cr [facility] CPT-47401 Level 3 Est. Patient 12:14:34 CDT Harinder Hernandez [facility] CPT-26281 Level 3 Est. Patient 13:47:15 CDT Harinder Hernandez [facility] CPT-46805 Level 3 Est. Patient 14:08:24 CDT Harinder Hernandez [facility] CPT-91672 Level 3 Est. Patient 10:07:15 CDT Harinder Cr [facility] CPT-94998 Level 3 Est. Patient 10:06:59 CDT Harinder Hernandez [facility] CPT-45531 Level 3 Est. Patient 15:53:29 CDT Jae Morgan MD [facility] CPT-30369 Level 3 Est. Patient 17:19:04 CDT Harinder Hernandez [facility] CPT-45297 Level 3 Est. Patient 11:13:01 CDT Harinder rC [facility] CPT-72507 Level 3 Est. Patient 09:03:58 CDT Harinder Hernandez [facility] CPT-14755 Level 3 Est. Patient 14:46:45 [employer]IVER MACHINE Harinder Hernandez [facility] CPT-03559 Level 3 Est. Patient 09:35:49 SKIVER MACHINE Harinder Hernandez [facility] CPT-32783 Level 3 Est. Patient 09:29:37 SKIVER MACHINE Harinder Hernandez [facility] CPT-94773 Level 3 Est. Patient 15:51:07 CDT Harinder Hernandez [facility] CPT-62252 Level 3 Est. Patient 18:13:13 CDT Harinder Cr [facility] CPT-92444 Level 3 Est. Patient 10:44:19 CDT Harinder Cr [facility] CPT-53974 Level 4 Est. Patient 10:07:19 SKIVER MACHINE Harinder Cr [facility] CPT-12615 Level 3 Est. Patient 15:59:32 SKIVER MACHINE Harinder Cr [facility] Procedures Code Procedure Name Date Entry Date Standard Description CPT-TCMM Transitional Care Mgmt-Moderate 11:33:57 CDT CPT-77003 No Charge Offi Visit 14:11:29 CDT CPT-00259 Magnesium - LAB USE ONLY 10:45:44 CDT CPT-46154 Lipid - LAB USE ONLY 10:45:44 CDT CPT-52319 CBC - LAB USE ONLY 10:45:44 CDT CPT-02886 Venipuncture Draw Fee 10:45:43 CDT CPT-32287 Venipuncture Draw Fee 18:21:27 CDT CPT-JTINJ Asp/Joint Injection 18:38:04 CDT CPT-62968 Immunization Each Additional Inj 17:38:04 CDT CPT-17659 Immunization Single Admin 17:38:04 CDT CPT-87574 Prevnar 13 17:38:04 CDT CPT-05875 Fluzone Quadrivalent preservative free (>=3yrs.) 17:38: 04 CDT CPT-94269 No Charge Offi Visit 11:14:03 CDT CPT-18723 Chest 2V Frontal and Lat 14:00:18 CDT CPT-OV Office Visit 16:10:28 CDT CPT-JTINJ Asp/Joint Injection 09:03:57 CDT CPT-Cryo Cryotherapy 09:35:49 SKIVER MACHINE CPT-JTINJ Asp/Joint Injection 09:34:45 SKIVER MACHINE CPT-J2930 Solu Medrol 125 mg (Methyl Prednisolone Sodium Succinate) 20:37:27 CDT CPT-88399 Abx/Therapy Injection 20:37:27 CDT CPT-82260 Port a cath flush 08:15:51 CDT CPT-57356 Port a cath flush 09:54:16 CDT CPT-58773 Port a cath flush 09:38:02 CDT CPT-26800 Port a cath flush 11:00:27 SKIVER MACHINE
--- OUTSIDE RECORDS SUMMARY | 2017-12-29 00:52 | XMS REPORT | Clinical Summary ---
Author Author Admin, QIE Organization [facility] Address Unknown Phone Unavailable Allergies, Adverse Reactions, [...] + D3 TABLET CALCIUM CARBONATE-VITAMIN D TABS 21426381265 Active Meenu Alejo LPN Active SPIRONOLACTONE 25 MG ORAL TABLET 1 tablet by mouth daily SPIRONOLACTONE 18251712404 No Longer Active Jeri Nieto Active PREDNISONE 20 MG ORAL TABLET 2 tablets by mouth today, then 1 tablet by mouth days 2-3 PREDNISONE 11233155275 No Longer Active Jeri Nieto Active NITROSTAT 0.4 MG SUBLINGUAL TABLET SUBLINGUAL 1 tab SL q5min PRN chest pain NITROGLYCERIN 38794448825 Active Meenu Alejo LPN Active THEOPHYLLINE ER 300 MG ORAL TABLET EXTENDED RELEASE 12 HOUR 1 po BID THEOPHYLLINE 81224572281 Active Kortney Mccain Active POTASSIUM CHLORIDE ER 20 MEQ ORAL TABLET EXTENDED RELEASE 1 po q day POTASSIUM CHLORIDE 98376902318 Active Kortney Mccain Active POTASSIUM CHLORIDE 20 MEQ ORAL PACKET 1 tab po q day POTASSIUM CHLORIDE 64981362414 No Longer Active Kortney Mccain Active POTASSIUM CHLORIDE ER 10 MEQ ORAL CAPSULE EXTENDED RELEASE 1 capsule BID 2016 POTASSIUM CHLORIDE 48993683191 No Longer Active Kortney Mccain Active LASIX 20 MG ORAL TABLET 1 tablet by mouth every morning FUROSEMIDE 17469259579 No Longer Active Kortney Mccain Active FLUOXETINE HCL 10 MG ORAL CAPSULE 1 po qd for depression/anxiety FLUOXETINE HCL 60069555643 Active Meenu Alejo LPN Active VOLTAREN 1 % TRANSDERMAL GEL apply q 6-8 hour to left arm as needed for pain DICLOFENAC SODIUM 66473550615 Active Kortney Mccain Active ALBUTEROL SULFATE (2.5 MG/3ML) 0.083% INHALATION NEBULIZATION SOLUTION 1 vial neb q 4hrs for severe asthma. 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 NIFEDIPINE 72095378570 Active Kortney Mccain Active AMLODIPINE BESYLATE 5 MG ORAL TABLET 1 tablet by mouth daily 2016 AMLODIPINE BESYLATE 06089549189 No Longer Active Harinder Hernandez DO Active TOPAMAX 25 MG ORAL TABLET 1 tab po BID TOPIRAMATE 43917571410 Active Kortney Mccain Active FLUTICASONE PROPIONATE 50 MCG/ACT NASAL SUSPENSION 2 sprays per nostril daily PRN Allergies FLUTICASONE PROPIONATE 62240655759 Active Meenu Alejo LPN Active NIFEDIPINE ER 30 MG ORAL TABLET EXTENDED RELEASE 24 HOUR 1 daily NIFEDIPINE 04691789565 No Longer Active Harinder Hernandez DO Active FLOVENT HFA 110 MCG/ACT INHALATION AEROSOL 2 puffs inhaled b.i.d. FLUTICASONE PROPIONATE HFA 08673607694 Active Harinder Hernandez DO Active EPIPEN 2-BRUNA 0.3 MG/0.3ML INJECTION SOLUTION AUTO-INJECTOR 1 INJ NEEDED EPINEPHRINE 97484428583 Active Meenu Alejo LPN Active PREDNISONE 20 MG ORAL TABLET 1 tab twice daily for 3 day, then one daily for three days PREDNISONE 16825528123 No Longer Active Harinder Hernandez DO Active PREDNISONE 20 MG ORAL TABLET 1 tablet twice daily for 2 days, then 1 tablet once daily for 2 days PREDNISONE 30641195513 No Longer Active Harinder Hernandez DO Active ASMANEX 120 METERED DOSES 220 MCG/INH INHALATION AEROSOL POWDER BREATH ACTIVATED 2 puffs orally twice daily MOMETASONE FUROATE 56294961459 Active Jeri Sosa LPN Active TOPIRAMATE 25 MG ORAL TABLET 1 tab po BID TOPIRAMATE 46660653283 No Longer Active Nettie Newberry APRN Active AMLODIPINE BESYLATE 5 MG ORAL TABLET Take 1 tab po daily AMLODIPINE BESYLATE 12863353641 No Longer Active Nettie Newberry APRN Active MECLIZINE HCL 25 MG ORAL TABLET 1 tablet three times daily for 3 days, then 1/ 2 tab three times daily for 3 days. MECLIZINE HCL 83807133258 No Longer Active Nettie Newberry APRN Active AMITRIPTYLINE HCL 25 MG ORAL TABLET 1 q hs prn AMITRIPTYLINE HCL 30676114940 No Longer Active Nettie Newberry APRN Active DILAUDID 2 MG ORAL TABLET Take 1/2 tab po every 4 hours as needed for pain HYDROMORPHONE HCL 77388319091 No Longer Active Nettie Newberry APRN Active CLOPIDOGREL BISULFATE 75 MG ORAL TABLET 1 tab by mouth once daily CLOPIDOGREL BISULFATE 47764756190 Active Meenu Alejo LPN Active ATORVASTATIN CALCIUM 10 MG ORAL TABLET 1 at bedtime ATORVASTATIN CALCIUM 74621881215 Active Kortney Mccain Active LOVASTATIN 40 MG ORAL TABLET Take 1 tab po every hs LOVASTATIN 26154925075 No Longer Active Harinder Hernandez DO Active PREDNISONE 20 MG ORAL TABLET 2 tabs daily for 4 days, 1 tab daily for 4 days, 1/2 tab daily for 4 days PREDNISONE 46258184431 No Longer Active Harinder Hernandez DO Active LEVAQUIN 500 MG ORAL TABLET Take 1 tab po daily x 8 days LEVOFLOXACIN 41774462885 No Longer Active Harinder Hernandez DO Active VENTOLIN HFA 108 (90 Base) MCG/ACT INHALATION AEROSOL SOLUTION 2 -4 puffs four times a day PRN ALBUTEROL SULFATE 04819025356 No Longer Active Jeri Sosa LPN Active ACEBUTOLOL HCL 200 MG ORAL CAPSULE 1 cap in the morning and 2 caps in the evening ACEBUTOLOL HCL 46727087876 No Longer Active Harinder Hernandez DO Active CEFDINIR 300 MG ORAL CAPSULE take 1 cap po bid x 10 days CEFDINIR 58950176370 No Longer Active Harinder Hernandez DO Active LOVASTATIN 40 MG ORAL TABLET 1 pill by mouth nightly for cholesterol LOVASTATIN 55139512057 No Longer Active Nettie Newberry APRN Active NITROSTAT 0.4 MG SUBLINGUAL TABLET SUBLINGUAL 1 tab under tongueas needed for chest pain ( may take 3 total, 5 min apart, then call 911) NITROGLYCERIN 99156042166 No Longer Active Nettie Newberry APRN Active POTASSIUM CHLORIDE ER 10 MEQ ORAL CAPSULE EXTENDED RELEASE 1 capsule by mouth daily POTASSIUM CHLORIDE 86769136242 No Longer Active Nettie Newberry APRN Active TESSALON PERLES 100 MG ORAL CAPSULE 1 to 2 tablets by mouth 3 times daily as needed for cough BENZONATATE 25691002536 No Longer Active Nettie Newberry APRN Active PREDNISONE 20 MG ORAL TABLET 2 po qd x 5 days PREDNISONE 96700194865 No Longer Active Jae Morgan MD Active AZITHROMYCIN 250 MG ORAL TABLET 2 po qd x 1 day, then 1 po qd x 4 days 12/30 AZITHROMYCIN 32716429481 No Longer Active Jae Morgan MD Active PREDNISONE 20 MG ORAL TABLET 1 tab twice daily for 3 day, then one daily for three days PREDNISONE 88410765782 No Longer Active Jae Morgan MD Active SINGULAIR 10 MG ORAL TABLET 1 pill by mouth every evening for breathing. 2014 MONTELUKAST SODIUM 53552658841 Active Meenu Alejo LPN Active TYLENOL 325 MG ORAL TABLET 3 by mouth q4h as needed ACETAMINOPHEN 66983283512 Active Harinder Hernandez DO Active POTASSIUM CHLORIDE ER 10 MEQ ORAL TABLET EXTENDED RELEASE take 1 tab po daily POTASSIUM CHLORIDE 59639940570 No Longer Active Harinder Hernandez DO Active PREDNISONE 20 MG ORAL TABLET 1 TID x 2 days, then 1 BID x 3 days, then 1 Daily x 3 days, then stop PREDNISONE 66944665958 No Longer Active Jillina Fradankl MAHENDRA Active LEVAQUIN 500 MG ORAL TABLET 1 tablet by mouth daily LEVOFLOXACIN 17436876555 No Longer Active Jillina 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 NEURONTIN 300 MG ORAL CAPSULE 1 cap by mouth three times daily for restless leg GABAPENTIN 66588976721 No Longer Active Harinder Hernandez DO Active BENZONATATE 100 MG ORAL CAPSULE 1 cap po TID PRN BENZONATATE 87612165525 No Longer Active Harinder Hernandez DO Active MONTELUKAST SODIUM 10 MG ORAL TABLET 1 tab po in the evening 2014 MONTELUKAST SODIUM 30035101316 No Longer Active Harinder Hernandez DO Active MUPIROCIN 2 % EXTERNAL OINTMENT apply to affected area BID x 14 days MUPIROCIN 16118117509 No Longer Active Harinder Hernandez DO Active TYLENOL EXTRA STRENGTH 500 MG ORAL TABLET as needed ACETAMINOPHEN 91933225213 No Longer Active Harinder Hernandez DO Active PREDNISONE 10 MG ORAL TABLET 1 tab po daily PREDNISONE 36604635420 No Longer Active Harinder Hernandez DO Active PREDNISONE 20 MG ORAL TABLET 2 tabs daily for 4 days, 1 tab daily for 4 days, 1/2 tab daily for 4 days PREDNISONE 91138179527 No Longer Active Harinder Hernandez DO Active AZITHROMYCIN 250 MG ORAL TABLET 2 po qd x 1 day, then 1 po qd x 4 days 04/06 AZITHROMYCIN 76864551247 No Longer Active Hairnder Hernandez DO Active PREDNISONE 20 MG ORAL TABLET 3 tabs today, then 1 tab twice daily for 3 day, then one daily for three days PREDNISONE 49161259734 No Longer Active Harinder Hernandez DO Active NIFEDIAC CC 30 MG ORAL TABLET EXTENDED RELEASE 24 HOUR 1 tablet daily for raynaud's syndrome NIFEDIPINE 23596447254 No Longer Active Tawnya Pardo MA Active AMBIEN 10 MG ORAL TABLET 1/2 tab by mouth at bedtime as needed for sleep 2013 ZOLPIDEM TARTRATE 84014949365 Active Meenu Alejo LPN Active CLONAZEPAM 1 MG ORAL TABLET 1 tablet at bedtime for insomnia and restless legs CLONAZEPAM 81585725555 Active Meenu Alejo LPN Active CLONAZEPAM 0.5 MG ORAL TABLET 1 tab po daily CLONAZEPAM 22015915014 No Longer Active Harinder Hernandez DO Active PREDNISONE 10 MG ORAL TABLET 1 tablet daily for COPD PREDNISONE 23839208532 Active Kortney Mccain Active PROAIR HFA 108 (90 Base) MCG/ACT INHALATION AEROSOL SOLUTION 2 puffs four times a day as needed ALBUTEROL SULFATE 14621425847 Active Harinder Hernandez DO Active FLOVENT HFA 110 MCG/ACT INHALATION AEROSOL 2 puffs inhaled b.i.d. FLUTICASONE PROPIONATE HFA 78642155832 Active Kortney Mccain Active ACIPHEX 20 MG ORAL TABLET DELAYED RELEASE 1 tab po daily RABEPRAZOLE SODIUM 44635921850 Active Meenu Alejo LPN Active CLONAZEPAM 0.5 MG ORAL TABLET 1 tab po daily CLONAZEPAM 0.5 MG ORAL TABLET 851738 CLONAZEPAM Inactive PREDNISONE 20 MG ORAL TABLET 3 tabs today, then 1 tab twice daily for 3 day, then one daily for three days PREDNISONE 20 MG ORAL TABLET 574744 PREDNISONE Inactive PREDNISONE 20 MG ORAL TABLET 2 tabs daily for 4 days, 1 tab daily for 4 days, 1/2 tab daily for 4 days PREDNISONE 20 MG ORAL TABLET 113665 PREDNISONE Inactive PREDNISONE 10 MG ORAL TABLET 1 tab po daily PREDNISONE 10 MG ORAL TABLET 883293 PREDNISONE Inactive TYLENOL EXTRA STRENGTH 500 MG ORAL TABLET as needed TYLENOL EXTRA STRENGTH 500 MG ORAL TABLET 903757 ACETAMINOPHEN Inactive MUPIROCIN 2 % EXTERNAL OINTMENT apply to affected area BID x 14 days MUPIROCIN 2 % EXTERNAL OINTMENT 201112 MUPIROCIN Inactive MONTELUKAST SODIUM 10 MG ORAL TABLET 1 tab po in the evening 2014 MONTELUKAST SODIUM 10 MG ORAL TABLET 586755 MONTELUKAST SODIUM Inactive BENZONATATE 100 MG ORAL CAPSULE 1 cap po TID PRN BENZONATATE 100 MG ORAL CAPSULE 349803 BENZONATATE Inactive NEURONTIN 300 MG ORAL CAPSULE 1 cap by mouth three times daily for restless leg NEURONTIN 300 MG ORAL CAPSULE 988489 GABAPENTIN Inactive LEVAQUIN 500 MG ORAL TABLET 1 tablet by mouth daily LEVAQUIN 500 MG ORAL TABLET 807733 LEVOFLOXACIN Inactive PREDNISONE 20 MG ORAL TABLET 1 TID x 2 days, then 1 BID x 3 days, then 1 Daily x 3 days, then stop PREDNISONE 20 MG ORAL TABLET 676434 PREDNISONE Inactive POTASSIUM CHLORIDE ER 10 MEQ ORAL TABLET EXTENDED RELEASE take 1 tab po daily POTASSIUM CHLORIDE ER 10 MEQ ORAL TABLET EXTENDED RELEASE POTASSIUM CHLORIDE Inactive PREDNISONE 20 MG ORAL TABLET 1 tab twice daily for 3 day, then one daily for three days PREDNISONE 20 MG ORAL TABLET 914480 PREDNISONE Inactive TESSALON PERLES 100 MG ORAL CAPSULE 1 to 2 tablets by mouth 3 times daily as needed for cough TESSALON PERLES 100 MG ORAL CAPSULE 021864 BENZONATATE Inactive POTASSIUM CHLORIDE ER 10 MEQ ORAL CAPSULE EXTENDED RELEASE 1 capsule by mouth daily POTASSIUM CHLORIDE ER 10 MEQ ORAL CAPSULE EXTENDED RELEASE POTASSIUM CHLORIDE Inactive NITROSTAT 0.4 MG SUBLINGUAL TABLET SUBLINGUAL 1 tab under tongueas needed for chest pain ( may take 3 total, 5 min apart, then call 911) NITROSTAT 0.4 MG SUBLINGUAL TABLET SUBLINGUAL 045920 NITROGLYCERIN Inactive LOVASTATIN 40 MG ORAL TABLET 1 pill by mouth nightly for cholesterol LOVASTATIN 40 MG ORAL TABLET 597059 LOVASTATIN Inactive CEFDINIR 300 MG ORAL CAPSULE take 1 cap po bid x 10 days CEFDINIR 300 MG ORAL CAPSULE 327062 CEFDINIR Inactive ACEBUTOLOL HCL 200 MG ORAL CAPSULE 1 cap in the morning and 2 caps in the evening ACEBUTOLOL HCL 200 MG ORAL CAPSULE 894524 ACEBUTOLOL HCL Inactive VENTOLIN HFA 108 (90 Base) MCG/ACT INHALATION AEROSOL SOLUTION 2 -4 puffs four times a day PRN VENTOLIN HFA 108 (90 Base) MCG/ ACT INHALATION AEROSOL SOLUTION ALBUTEROL SULFATE Inactive LEVAQUIN 500 MG ORAL TABLET Take 1 tab po daily x 8 days LEVAQUIN 500 MG ORAL TABLET 774285 LEVOFLOXACIN Inactive PREDNISONE 20 MG ORAL TABLET 2 tabs daily for 4 days, 1 tab daily for 4 days, 1/2 tab daily for 4 days PREDNISONE 20 MG ORAL TABLET 795753 PREDNISONE Inactive LOVASTATIN 40 MG ORAL TABLET Take 1 tab po every hs LOVASTATIN 40 MG ORAL TABLET 134594 LOVASTATIN Inactive DILAUDID 2 MG ORAL TABLET Take 1/2 tab po every 4 hours as needed for pain DILAUDID 2 MG ORAL TABLET 037724 HYDROMORPHONE HCL Inactive AMITRIPTYLINE HCL 25 MG ORAL TABLET 1 q hs prn AMITRIPTYLINE HCL 25 MG ORAL TABLET 518417 AMITRIPTYLINE HCL Inactive MECLIZINE HCL 25 MG ORAL TABLET 1 tablet three times daily for 3 days, then 1/ 2 tab three times daily for 3 days. MECLIZINE HCL 25 MG ORAL TABLET 541170 MECLIZINE HCL Inactive AMLODIPINE BESYLATE 5 MG ORAL TABLET Take 1 tab po daily AMLODIPINE BESYLATE 5 MG ORAL TABLET 370639 AMLODIPINE BESYLATE Inactive TOPIRAMATE 25 MG ORAL TABLET 1 tab po BID TOPIRAMATE 25 MG ORAL TABLET 430210 TOPIRAMATE Inactive PREDNISONE 20 MG ORAL TABLET 1 tablet twice daily for 2 days, then 1 tablet once daily for 2 days PREDNISONE 20 MG ORAL TABLET 815798 PREDNISONE Inactive PREDNISONE 20 MG ORAL TABLET 1 tab twice daily for 3 day, then one daily for three days PREDNISONE 20 MG ORAL TABLET 816106 PREDNISONE Inactive NIFEDIPINE ER 30 MG ORAL TABLET EXTENDED RELEASE 24 HOUR 1 daily NIFEDIPINE ER 30 MG ORAL TABLET EXTENDED RELEASE 24 HOUR NIFEDIPINE Inactive AMLODIPINE BESYLATE 5 MG ORAL TABLET 1 tablet by mouth daily 2016 AMLODIPINE BESYLATE 5 MG ORAL TABLET 076108 AMLODIPINE BESYLATE Inactive LASIX 20 MG ORAL TABLET 1 tablet by mouth every morning LASIX 20 MG ORAL TABLET 227484 FUROSEMIDE Inactive POTASSIUM CHLORIDE ER 10 MEQ ORAL CAPSULE EXTENDED RELEASE 1 capsule BID 2016 POTASSIUM CHLORIDE ER 10 MEQ ORAL CAPSULE EXTENDED RELEASE POTASSIUM CHLORIDE Inactive POTASSIUM CHLORIDE 20 MEQ ORAL PACKET 1 tab po q day POTASSIUM CHLORIDE 20 MEQ ORAL PACKET 4053534 POTASSIUM CHLORIDE Inactive PREDNISONE 20 MG ORAL TABLET 2 tablets by mouth today, then 1 tablet by mouth days 2-3 PREDNISONE 20 MG ORAL TABLET 265325 PREDNISONE Inactive SPIRONOLACTONE 25 MG ORAL TABLET 1 tablet by mouth daily SPIRONOLACTONE 25 MG ORAL TABLET 233258 SPIRONOLACTONE Inactive AZITHROMYCIN 250 MG ORAL TABLET 2 po qd x 1 day, then 1 po qd x 4 days 04/06 AZITHROMYCIN 250 MG ORAL TABLET 639931 AZITHROMYCIN Inactive AZITHROMYCIN 250 MG ORAL TABLET 2 po qd x 1 day, then 1 po qd x 4 days 12/30 AZITHROMYCIN 250 MG ORAL TABLET 625186 AZITHROMYCIN Inactive PREDNISONE 20 MG ORAL TABLET 2 po qd x 5 days PREDNISONE 20 MG ORAL TABLET 330424 PREDNISONE Inactive Vital Signs Date Name Value [...] Panel - Chemistry sodium, serum 140 mmol/L 984-068 7335/07/13 potassium, serum 3.2 mmol/L 3.5-5.2 chloride, serum 103 mmol/L 98-107 carbon dioxide, venous blood 26.9 mmol/L 21.0-32.0 blood glucose 93 mg/dL 65-110 calcium, serum 9.2 mg/dL 8.5-10.1 urea nitrogen, blood 13 mg/dL 7-18 creatinine, serum 0.84 mg/dL 0.60-1.30 sodium, serum 140 mmol/L 082-894 3064/08/21 potassium, serum 3.8 mmol/L 3.5-5.2 chloride, serum [...] ... - Chemistry sodium, serum 141 mmol/L 557-574 1435/08/07 carbon dioxide, venous blood 34.0 mmol/L 21.0-32.0 [...] 1.40 mg/dL 0.00-1.00 cholesterol, serum 192 mg/dL 690-656 8619/10/19 triglyceride, serum, fasting 71 mg/dL 30-200 HDL cholesterol, serum 72 mg/dL 32-60 LDL cholesterol, serum 106 mg/dL 0-130 Lab Report: Rapid Strep - Lab Microbial identification kit, rapid strep method Negative Negative Lab Report: THEOPHYLLINE - Toxicology theophylline level, serum 3.1 ug/mL 10.0-20.0 Encounters Code Encounter Date Provider Facility CPT-63178 Level 4 Est. Patient 10:17:51 CHIEF NURSING EXECUTIVE Harinder Cr [facility] CPT-17749 Level 3 Est. Patient 12:36:15 CHIEF NURSING EXECUTIVE Harinder Cr [facility] CPT-39027 Level 3 Est. Patient 15:14:45 CHIEF NURSING EXECUTIVE Harinder Cr [facility] CPT-01862 Level 4 Est. Patient 14:45:25 CDT Harinder Cr [facility] CPT-79036 Level 4 Est. Patient 09:15:13 CDT Harinder Shaye [facility] CPT-24205 Level 3 Est. Patient 11:51:58 CDT Harinder Shaye [facility] CPT-43150 Level 3 Est. Patient 11:30:05 CDT Harinder Cr [facility] CPT-76536 Level 4 Est. Patient 10:19:23 CDT Harinder Cr [facility] CPT-41580 Level 3 Est. Patient 09:58:[address] [facility] CPT-25065 Level 3 Est. Patient 12:37:[address] [facility] CPT-56203 Level 3 Est. Patient 18:37:17 CDT Harinder Cr [facility] CPT-60419 Level 4 Est. Patient 11:15:54 CDT Nettie King MAHENDRA [facility] CPT-53216 Level 3 Est. Patient 16:42:24 CDT [address] [facility] CPT-51311 Level 3 Est. Patient 15:03:36 CDT Harinder Cr [facility] CPT-07257 Level 3 Est. Patient 15:03:20 CDT Harinder Cr [facility] CPT-59458 Level 3 Est. Patient 12:14:34 CDT Harinder Hernandez [facility] CPT-80315 Level 3 Est. Patient 13:47:15 CDT Harinder Cr [facility] CPT-79256 Level 3 Est. Patient 14:08:24 CDT Harinder Hernandez [facility] CPT-66547 Level 3 Est. Patient 10:07:15 CDT Harinder Cr [facility] CPT-51883 Level 3 Est. Patient 10:06:59 CDT Harinder Hernandez [facility] CPT-18372 Level 3 Est. Patient 15:53:29 CDT Jae Morgan MD [facility] CPT-91573 Level 3 Est. Patient 17:19:04 CDT Harinder Hernandez [facility] CPT-44342 Level 3 Est. Patient 11:13:01 CDT Harinder Cr [facility] CPT-13191 Level 3 Est. Patient 09:03:[address] [facility] CPT-91539 Level 3 Est. Patient 14:46:45 CHIEF NURSING EXECUTIVE Harinder Hernandez [facility] CPT-71399 Level 3 Est. Patient 09:35:49 CHIEF NURSING EXECUTIVE Harinder Hernandez [facility] CPT-62011 Level 3 Est. Patient 09:29:37 CHIEF NURSING EXECUTIVE Harinder Hernandez [facility] CPT-42178 Level 3 Est. Patient 15:51:07 CDT Harinder Hernandez [facility] CPT-71499 Level 3 Est. Patient 18:13:13 CDT Harinder Hernandez [facility] CPT-96580 Level 3 Est. Patient 10:44:19 CDT Harinder Hernandez [facility] CPT-27158 Level 4 Est. Patient 10:07:19 CHIEF NURSING EXECUTIVE Harinder Hernandez [facility] CPT-46413 Level 3 Est. Patient 15:59:32 CHIEF NURSING EXECUTIVE Harinder Hernandez [facility] Procedures Code Procedure Name Date Entry Date Standard Description CPT-27558 Bone Density - XRAY USE ONLY 14:43:42 CDT CPT-G0009 Administration of Pneumococcal Vaccine 10:33:25 CHIEF NURSING EXECUTIVE CPT-30853 Pneumovax 23 Injection Injectable 25 MCG/0.5ML 10:33:25 CHIEF NURSING EXECUTIVE CPT-54093 First Vx - Ix admin for Medicare patients 10:33:25 CHIEF NURSING EXECUTIVE CPT-08592 Fluzone Quadrivalent Intramuscular Suspension 0.5 ML 10: 33:25 CHIEF NURSING EXECUTIVE CPT-Cryo Cryotherapy 10:17:51 CHIEF NURSING EXECUTIVE CPT-G0438 Initial Annual Wellness Exam 10:08:59 CHIEF NURSING EXECUTIVE CPT-47036 Abd compl w upright - XRAY USE ONLY 14:48:09 CDT 02/18 CPT-62045 Port a cath flush 13:46:05 CDT CPT-22115 Hip, complete, 2-3 views - XRAY USE ONLY 10:28:40 CDT CPT-83474 BMP - LAB USE ONLY 16:45:09 CHIEF NURSING EXECUTIVE CPT-36191 Port a cath flush 12:00:13 CHIEF NURSING EXECUTIVE CPT-TCMM Transitional Care Mgmt-Moderate 11:20:16 CHIEF NURSING EXECUTIVE CPT-12620 First Vx - Ix admin for Medicare patients 17:35:15 CDT CPT-55309 Fluzone Preservative Free Intramuscular Suspension 17:35 :15 CDT CPT-96668 Microalbumin - LAB USE ONLY 11:52:05 CDT CPT-TCMM Transitional Care Mgmt-Moderate 11:33:57 CDT CPT-63471 No Charge Offi Visit 14:11:29 CDT CPT-05378 Magnesium - LAB USE ONLY 10:45:44 CDT CPT-22480 Lipid - LAB USE ONLY 10:45:44 CDT CPT-00483 CBC - LAB USE ONLY 10:45:44 CDT CPT-21905 Venipuncture Draw Fee 10:45:43 CDT CPT-87208 Venipuncture Draw Fee 18:21:27 CDT CPT-JTINJ Asp/Joint Injection 18:38:04 CDT CPT-67102 Immunization Each Additional Inj 17:38:04 CDT CPT-54577 Immunization Single Admin 17:38:04 CDT CPT-12051 Prevnar 13 17:38:04 CDT CPT-63125 Fluzone Quadrivalent preservative free (>=3yrs.) 17:38: 04 CDT CPT-49149 No Charge Offi Visit 11:14:03 CDT CPT-37547 Chest 2V Frontal and Lat 14:00:18 CDT CPT-OV Office Visit 16:10:28 CDT CPT-JTINJ Asp/Joint Injection 09:03:57 CDT CPT-Cryo Cryotherapy 09:35:49 CHIEF NURSING EXECUTIVE CPT-JTINJ Asp/Joint Injection 09:34:45 CHIEF NURSING EXECUTIVE CPT-J2930 Solu Medrol 125 mg (Methyl Prednisolone Sodium Succinate) 20:37:27 CDT CPT-44770 Abx/Therapy Injection 20:37:27 CDT CPT-87510 Port a cath flush 08:15:51 CDT CPT-66967 Port a cath flush 09:54:16 CDT CPT-95386 Port a cath flush 09:38:02 CDT CPT-21002 Port a cath flush 11:00:27 CHIEF NURSING EXECUTIVE
--- OUTSIDE RECORDS SUMMARY | 2017-12-29 00:53 | XMS REPORT | Clinical Summary ---
Author Author Admin, QIE Organization [facility] [employer] Address Unknown Phone Unavailable Allergies, Adverse Reactions, [...] 1 tab po q day POTASSIUM CHLORIDE [id number] Active Harinder Hernandez DO Active POTASSIUM CHLORIDE CR 10 MEQ CPCR 1 capsule BID POTASSIUM CHLORIDE 26402055439 No Longer Active Kortney Mccain Active LASIX 20 MG TAB 1 tablet by mouth every morning FUROSEMIDE 24540475702 No Longer Active Kortney Mccain Active SPIRONOLACTONE 25 MG TAB 1 tablet by mouth daily SPIRONOLACTONE 86808423309 Active Ciera Pimentel Active FLUOXETINE HCL 10 MG ORAL CAPS 1 po qd for depression/anxiety FLUOXETINE HCL 57372053383 Prince Hernandez DO Active VOLTAREN 1 % GEL apply q 6-8 hour to left arm as needed for pain DICLOFENAC SODIUM 62968118256 Prince Hernandez DO Active ALBUTEROL SULFATE 0.083 % NEBU SOLN 1 vial neb q 4hrs for severe asthma. 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 FLUTICASONE PROPIONATE HFA 80461250600 Active Harinder Hernandez DO Active EPIPEN 2-BRUNA 0.3 MG/0.3ML INJ SOAJ 1 INJ NEEDED EPINEPHRINE 72567975611 Active Harinder Hernandez DO Active PREDNISONE 20 MG TAB 1 tab twice daily for 3 day, then one daily for three days PREDNISONE 55612790253 No Longer Active Harinder Hernandez DO Active PREDNISONE 20 MG TAB 1 tablet twice daily for 2 days, then 1 tablet once daily for 2 days PREDNISONE 05671202192 No Longer Active Harinder Hernandez DO Active ASMANEX 120 METERED DOSES 220 MCG/INH INH AEPB 2 puffs orally twice daily MOMETASONE FUROATE 53901109094 Active Jeri Sosa LPN Active TOPIRAMATE 25 MG TABS 1 tab po BID TOPIRAMATE 19711584861 No Longer Active Nettie Newberry APRN Active AMLODIPINE BESYLATE 5 MG ORAL TABS Take 1 tab po daily AMLODIPINE BESYLATE 54387973871 No Longer Active Nettie Newberry APRN Active MECLIZINE HCL 25 MG TAB 1 tablet three times daily for 3 days, then 1/2 tab three times daily for 3 days. MECLIZINE HCL 75319649766 No Longer Active Nettie Newberry APRN Active AMITRIPTYLINE HCL 25 MG ORAL TABS 1 q hs prn AMITRIPTYLINE HCL 23619889716 No Longer Active Nettie Newberry APRN Active DILAUDID 2 MG ORAL TABS Take 1/2 tab po every 4 hours as needed for pain 2014 HYDROMORPHONE HCL 02568192309 No Longer Active Nettie Newberry APRN Active CLOPIDOGREL BISULFATE 75 MG ORAL TABS 1 tab by mouth once daily CLOPIDOGREL BISULFATE 80429583476 Active Harinder Hernandez DO Active ATORVASTATIN CALCIUM 10 MG ORAL TABS 1 at bedtime ATORVASTATIN CALCIUM 58435729465 Active Harinder Hernandez DO Active LOVASTATIN 40 MG ORAL TABS Take 1 tab po every hs LOVASTATIN 73430101337 No Longer Active Harinder Hernandez DO Active PREDNISONE 20 MG TAB 2 tabs daily for 4 days, 1 tab daily for 4 days, 1/2 tab daily for 4 days PREDNISONE 79874225698 No Longer Active Harinder Hernandez DO Active LEVAQUIN 500 MG ORAL TABS Take 1 tab po daily x 8 days LEVOFLOXACIN 31272325432 No Longer Active Harinder Hernandez DO Active VENTOLIN HFA 108 (90 BASE) MCG/ACT AERS 2 -4 puffs four times a day PRN 2013 ALBUTEROL SULFATE 87824801825 No Longer Active Jeri Sosa LPN Active ACEBUTOLOL HCL 200 MG CAPS 1 cap in the morning and 2 caps in the evening ACEBUTOLOL HCL 37260760733 No Longer Active Harinder Hernandez DO Active CEFDINIR 300 MG ORAL CAPS take 1 cap po bid x 10 days CEFDINIR 22824490122 No Longer Active Harinder Hernandez DO Active LOVASTATIN 40 MG TABS 1 pill by mouth nightly for cholesterol LOVASTATIN 46152020272 No Longer Active Nettie Newberry MAHENDRA Active NITROSTAT 0.4 MG SUBL 1 tab under tongueas needed for chest pain ( may take 3 total, 5 min apart, then call 911) NITROGLYCERIN 41351808229 No Longer Active Nettie Newberry MAHENDRA Active POTASSIUM CHLORIDE CR 10 MEQ CPCR 1 capsule by mouth daily 02/14 POTASSIUM CHLORIDE 23865893744 No Longer Active Nettie Rohtih MAHENDRA Active TESSALON PERLES 100 MG CAP 1 to 2 tablets by mouth 3 times daily as needed for cough BENZONATATE 46950458986 No Longer Active Nettie Newberry MAHENDRA Active THEOPHYLLINE ER 200 MG ORAL [id number] Take 1 tab every 12 hours THEOPHYLLINE 26479591073 Active Harinder Hernandez DO Active PREDNISONE 20 MG TAB 2 po qd x 5 days PREDNISONE 11516631121 No Longer Active Jae Morgan MD Active AZITHROMYCIN 250 MG TABS 2 po qd x 1 day, then 1 po qd x 4 days AZITHROMYCIN 98161813221 No Longer Active Jae Morgan MD Active PREDNISONE 20 MG TAB 1 tab twice daily for 3 day, then one daily for three days PREDNISONE 20580353403 No Longer Active Jae Morgan MD Active SINGULAIR 10 MG TABS 1 pill by mouth every evening for breathing. MONTELUKAST SODIUM 74447357625 Active Tawnya Pardo MA Active TYLENOL 325 MG TAB 3 by mouth q4h as needed ACETAMINOPHEN 79520986956 Active Harinder Hernandez DO Active POTASSIUM CHLORIDE ER 10 MEQ CR-TABS take 1 tab po daily POTASSIUM CHLORIDE 28202840442 No Longer Active Hrainder Hernandez DO Active PREDNISONE 20 MG TAB 1 TID x 2 days, then 1 BID x 3 days, then 1 Daily x 3 days, then stop PREDNISONE 54275972484 No Longer Active John Montemayor APRN Active LEVAQUIN 500 MG TAB 1 tablet by mouth daily LEVOFLOXACIN 61770410160 No Longer Active John Cuelloshai [employer]PER[employer]OR Active NEURONTIN 300 MG CAP 1 cap by mouth three times daily for restless leg 06/22 GABAPENTIN 35587743265 No Longer Active Harinder Hernandez DO Active BENZONATATE 100 MG CAPS 1 cap po TID PRN BENZONATATE 90491096655 No Longer Active Harinder Hernandez DO Active MONTELUKAST SODIUM 10 MG TABS 1 tab po in the evening MONTELUKAST SODIUM 32285826065 No Longer Active Harinder Hernandez DO Active MUPIROCIN 2 % OINT apply to affected area BID x 14 days MUPIROCIN 09258390583 No Longer Active Harinder Hernandez DO Active TYLENOL EXTRA STRENGTH 500 MG TABS as needed ACETAMINOPHEN 36968313242 No Longer Active Harinder Hernandez DO Active PREDNISONE 10 MG TABS 1 tab po daily PREDNISONE 16860724200 No Longer Active Harinder Hernandez DO Active PREDNISONE 20 MG TAB 2 tabs daily for 4 days, 1 tab daily for 4 days, 1/2 tab daily for 4 days PREDNISONE 27788703656 No Longer Active Harinder Hernandez DO Active AZITHROMYCIN 250 MG TABS 2 po qd x 1 day, then 1 po qd x 4 days AZITHROMYCIN 26439111333 No Longer Active Harinder Hernandez DO Active PREDNISONE 20 MG TAB 3 tabs today, then 1 tab twice daily for 3 day, then one daily for three days PREDNISONE 50985107084 No Longer Active Harinder Hernandez DO Active NIFEDIAC CC 30 MG [id number] 1 tablet daily for raynaud's syndrome NIFEDIPINE 21255004250 No Longer Active Tawnya Pardo MA Active AMBIEN 10 MG TAB 1/2 tab by mouth at bedtime as needed for sleep ZOLPIDEM TARTRATE 51637283840 Active Harinder Hernandez DO Active CLONAZEPAM 1 MG TABS 1 tablet at bedtime for insomnia and restless legs 09/14 CLONAZEPAM 42594718217 Active Harinder W David DO Active CLONAZEPAM 0.5 MG TABS 1 tab po daily CLONAZEPAM 34359125639 No Longer Active Harinder Hernandez DO Active PREDNISONE 10 MG TAB 1 tablet daily for COPD PREDNISONE 93359212986 Active Harinder Hernandez DO Active PROAIR HFA 108 (90 BASE) MCG/ACT AERS 2 puffs four times a day as needed 2012 ALBUTEROL SULFATE 47962216505 Active Harinder Hernandez DO Active FLOVENT HFA 110 MCG/ACT AERO 2 puffs inhaled b.i.d. FLUTICASONE PROPIONATE HFA 62557058283 Active Kortney Mccain Active ACIPHEX 20 MG TBEC 1 tab po daily RABEPRAZOLE SODIUM 64140667935 Active Kaylah Newberry Active CLONAZEPAM 0.5 MG TABS 1 tab po daily CLONAZEPAM 0.5 MG TABS 039686 CLONAZEPAM Inactive PREDNISONE 20 MG TAB 3 tabs today, then 1 tab twice daily for 3 day, then one daily for three days PREDNISONE 20 MG TAB 945029 PREDNISONE Inactive PREDNISONE 20 MG TAB 2 tabs daily for 4 days, 1 tab daily for 4 days, 1/2 tab daily for 4 days PREDNISONE 20 MG TAB 186688 PREDNISONE Inactive PREDNISONE 10 MG TABS 1 tab po daily PREDNISONE 10 MG TABS 750475 PREDNISONE Inactive TYLENOL EXTRA STRENGTH 500 MG TABS as needed TYLENOL EXTRA STRENGTH 500 MG TABS 302239 ACETAMINOPHEN Inactive MUPIROCIN 2 % OINT apply to affected area BID x 14 days MUPIROCIN 2 % OINT 415975 MUPIROCIN Inactive MONTELUKAST SODIUM 10 MG TABS 1 tab po in the evening MONTELUKAST SODIUM 10 MG TABS 20010818 MONTELUKAST SODIUM Inactive BENZONATATE 100 MG CAPS 1 cap po TID PRN BENZONATATE 100 MG CAPS 816410 BENZONATATE Inactive NEURONTIN 300 MG CAP 1 cap by mouth three times daily for restless leg 06/22 NEURONTIN 300 MG CAP 882913 GABAPENTIN Inactive LEVAQUIN 500 MG TAB 1 tablet by mouth daily LEVAQUIN 500 MG TAB 375464 LEVOFLOXACIN Inactive PREDNISONE 20 MG TAB 1 TID x 2 days, then 1 BID x 3 days, then 1 Daily x 3 days, then stop PREDNISONE 20 MG TAB 415127 PREDNISONE Inactive POTASSIUM CHLORIDE ER 10 MEQ CR-TABS take 1 tab po daily POTASSIUM CHLORIDE ER 10 MEQ CR-TABS POTASSIUM CHLORIDE Inactive PREDNISONE 20 MG TAB 1 tab twice daily for 3 day, then one daily for three days PREDNISONE 20 MG TAB 699511 PREDNISONE Inactive TESSALON PERLES 100 MG CAP 1 to 2 tablets by mouth 3 times daily as needed for cough TESSALON PERLES 100 MG CAP 806541 BENZONATATE Inactive POTASSIUM CHLORIDE CR 10 MEQ CPCR 1 capsule by mouth daily 02/14 POTASSIUM CHLORIDE CR 10 MEQ CPCR POTASSIUM CHLORIDE Inactive NITROSTAT 0.4 MG SUBL 1 tab under tongueas needed for chest pain ( may take 3 total, 5 min apart, then call 911) NITROSTAT 0.4 MG SUBL 148983 NITROGLYCERIN Inactive LOVASTATIN 40 MG TABS 1 pill by mouth nightly for cholesterol LOVASTATIN 40 MG TABS 288069 LOVASTATIN Inactive CEFDINIR 300 MG ORAL CAPS take 1 cap po bid x 10 days CEFDINIR 300 MG ORAL CAPS 196590 CEFDINIR Inactive ACEBUTOLOL HCL 200 MG CAPS 1 cap in the morning and 2 caps in the evening ACEBUTOLOL HCL 200 MG CAPS 813142 ACEBUTOLOL HCL Inactive VENTOLIN HFA 108 (90 BASE) MCG/ACT AERS 2 -4 puffs four times a day PRN 2013 VENTOLIN HFA 108 (90 BASE) MCG/ACT AERS ALBUTEROL SULFATE Inactive LEVAQUIN 500 MG ORAL TABS Take 1 tab po daily x 8 days LEVAQUIN 500 MG ORAL TABS 954661 LEVOFLOXACIN Inactive PREDNISONE 20 MG TAB 2 tabs daily for 4 days, 1 tab daily for 4 days, 1/2 tab daily for 4 days PREDNISONE 20 MG TAB 920546 PREDNISONE Inactive LOVASTATIN 40 MG ORAL TABS Take 1 tab po every hs LOVASTATIN 40 MG ORAL TABS 771051 LOVASTATIN Inactive DILAUDID 2 MG ORAL TABS Take 1/2 tab po every 4 hours as needed for pain 2014 DILAUDID 2 MG ORAL TABS 659471 HYDROMORPHONE HCL Inactive AMITRIPTYLINE HCL 25 MG ORAL TABS 1 q hs prn AMITRIPTYLINE HCL 25 MG ORAL TABS 594947 AMITRIPTYLINE HCL Inactive MECLIZINE HCL 25 MG TAB 1 tablet three times daily for 3 days, then 1/2 tab three times daily for 3 days. MECLIZINE HCL 25 MG TAB 664984 MECLIZINE HCL Inactive AMLODIPINE BESYLATE 5 MG ORAL TABS Take 1 tab po daily AMLODIPINE BESYLATE 5 MG ORAL TABS 671857 AMLODIPINE BESYLATE Inactive TOPIRAMATE 25 MG TABS 1 tab po BID TOPIRAMATE 25 MG TABS 015827 TOPIRAMATE Inactive PREDNISONE 20 MG TAB 1 tablet twice daily for 2 days, then 1 tablet once daily for 2 days PREDNISONE 20 MG TAB 343799 PREDNISONE Inactive PREDNISONE 20 MG TAB 1 tab twice daily for 3 day, then one daily for three days PREDNISONE 20 MG TAB 717330 PREDNISONE Inactive NIFEDIPINE ER 30 MG ORAL [id number] 1 daily NIFEDIPINE ER 30 MG ORAL [id number] NIFEDIPINE Inactive AMLODIPINE BESYLATE 5 MG TABS 1 tablet by mouth daily AMLODIPINE BESYLATE 5 MG TABS 431692 AMLODIPINE BESYLATE Inactive LASIX 20 MG TAB 1 tablet by mouth every morning LASIX 20 MG TAB 579028 FUROSEMIDE Inactive POTASSIUM CHLORIDE CR 10 MEQ CPCR 1 capsule BID POTASSIUM CHLORIDE CR 10 MEQ CPCR POTASSIUM CHLORIDE Inactive AZITHROMYCIN 250 MG TABS 2 po qd x 1 day, then 1 po qd x 4 days AZITHROMYCIN 250 MG TABS 5125567 AZITHROMYCIN Inactive AZITHROMYCIN 250 MG TABS 2 po qd x 1 day, then 1 po qd x 4 days AZITHROMYCIN 250 MG TABS 3065497 AZITHROMYCIN Inactive PREDNISONE 20 MG TAB 2 po qd x 5 days PREDNISONE 20 MG TAB 493506 PREDNISONE Inactive Vital Signs Date Name Value [...] Panel - Chemistry sodium, serum 137 mmol/L 166-776 4663/01/03 potassium, serum 3.4 mmol/L 3.5-5.2 chloride, serum 102 mmol/L 98-107 carbon dioxide, venous blood 29.2 mmol/L 21.0-32.0 blood glucose 87 mg/dL 65-110 calcium, serum 8.5 mg/dL 8.5-10.1 urea nitrogen, blood 8 mg/dL 7-18 creatinine, serum 0.82 mg/dL 0.55-1.30 sodium, serum 140 mmol/L 540-374 8983/07/13 potassium, serum 3.2 mmol/L 3.5-5.2 chloride, serum 103 mmol/L 98-107 carbon dioxide, venous blood 26.9 mmol/L 21.0-32.0 blood glucose 93 mg/dL 65-110 calcium, serum 9.2 mg/dL 8.5-10.1 urea nitrogen, blood 13 mg/dL 7-18 creatinine, serum 0.84 mg/dL 0.60-1.30 sodium, serum 140 mmol/L 865-982 9561/08/21 urea nitrogen, blood 11 mg/dL 7-18 creatinine, serum 0.95 mg/dL 0.60-1.30 potassium, serum 3.8 mmol/L 3.5-5.2 chloride, serum 105 mmol/L 98-107 carbon dioxide, venous blood 26.9 mmol/L 21.0-32.0 blood glucose 85 mg/dL 65-110 calcium, serum 8.8 mg/dL 8.5-10.1 Lab Report: CBC, UADIP W/MICRO, AUTO - Chemistry protein, total urine random Negative mg/dL Negative RBC, urine, dipstick 2+ Negative Lab Report: CBC, UADIP W/MICRO, AUTO - Hematology hematocrit, blood 38.6 % 37.0-47.0 mean corpuscular volume, RBC 96 fL 80-97 mean corpuscular hemoglobin, RBC 32.0 pg 27.0-31.2 mean corpuscular hemoglobin concentration, RBC 33.5 G/DL % 31.8- 35.4 red blood cell distribution width 12.7 % 11.6-14.8 platelet count 204 10^3/MM^3 10*3/mm3 646-559 9831/08/07 hemoglobin, blood 12.9 g/dL 12.0-16.0 erythrocyte (RBC) count 4.04 10^6/MM^3 10*6/mm3 3.80-5.80 leukocyte count, blood 6.2 10^3/MM^3 10*3/mm3 4.6-10.2 Lab Report: CBC, UADIP W/MICRO, AUTO - [...] ... - Chemistry sodium, serum 141 mmol/L 303-711 0673/08/07 creatinine, serum 0.97 mg/dL 0.60-1.30 alanine aminotransferase [...] nitrogen, blood 11 mg/dL 7-18 Lab Report: MICROALB/CREAT W/RATIO - Chemistry albumin/creatinine ratio, urine < 30 mg/g mg/g{creat} 0-29 Lab Report: MICROALB/CREAT W/RATIO - Lab microalbumin, urine 10 0-19 Encounters Code Encounter Date Provider Facility CPT-57791 Level 4 Est. Patient 14:45:25 CDT Harinder Hernandez DO [facility] CPT-60046 Level 4 Est. Patient 09:15:13 CDT Harinder Hernandez [facility] CPT-46494 Level 3 Est. Patient 11:51:58 CDT Harinder Hernandez [facility] CPT-24512 Level 3 Est. Patient 11:30:05 CDT Harinder Hernandez [facility] CPT-32278 Level 4 Est. Patient 10:19:23 CDT Harinder Hernandez [facility] CPT-77025 Level 3 Est. Patient 09:58:58 CDT Harinder Cr [facility] CPT-05615 Level 3 Est. Patient 12:37:21 CDT Harinder [facility] CPT-35341 Level 3 Est. Patient 18:37:17 CDT Harinder [facility] CPT-12151 Level 4 Est. Patient 11:15:54 CDT Nettie Newberry [facility] CPT-55405 Level 3 Est. Patient 16:42:24 CDT Harinder [facility] CPT-50706 Level 3 Est. Patient 15:03:36 CDT Harinder [facility] CPT-84060 Level 3 Est. Patient 15:03:20 CDT Harinder Hernandez [facility] CPT-87758 Level 3 Est. Patient 12:14:34 CDT Harinder Hernandez [facility] CPT-67468 Level 3 Est. Patient 13:47:15 CDT Harinder Cr [facility] CPT-09609 Level 3 Est. Patient 14:08:24 CDT Harinder Cr [facility] CPT-22644 Level 3 Est. Patient 10:07:15 CDT Harinder Cr [facility] CPT-06355 Level 3 Est. Patient 10:06:59 CDT Harinder Cr [facility] CPT-11090 Level 3 Est. Patient 15:53:29 CDT Jae Morgan MD [facility] CPT-15965 Level 3 Est. Patient 17:19:04 CDT Harinder Shaye David [facility] CPT-14329 Level 3 Est. Patient 11:13:01 CDT Harinder Hernandez [facility] CPT-91423 Level 3 Est. Patient 09:03:58 CDT Harinder Hernandez [facility] CPT-98855 Level 3 Est. Patient 14:46:45 BAR TACKER Harinder Hernandez [facility] CPT-27669 Level 3 Est. Patient 09:35:49 BAR TACKER Harinder Shaye David [facility] CPT-91793 Level 3 Est. Patient 09:29:37 BAR TACKER Harinder Shaye David [facility] CPT-76775 Level 3 Est. Patient 15:51:07 CDT Harinder Hernandez [facility] CPT-35037 Level 3 Est. Patient 18:13:13 CDT Harinder Cr [facility] CPT-56627 Level 3 Est. Patient 10:44:19 CDT Harinder Hernandez [facility] CPT-92892 Level 4 Est. Patient 10:07:19 BAR TACKER Harinder Cr [facility] CPT-87054 Level 3 Est. Patient 15:59:32 BAR TACKER Harinder Shaye [facility] Procedures Code Procedure Name Date Entry Date Standard Description CPT-08622 Abd compl w upright - XRAY USE ONLY 14:48:09 CDT 02/18 CPT-57462 Port a cath flush 13:46:05 CDT CPT-53539 Hip, complete, 2-3 views - XRAY USE ONLY 10:28:40 CDT CPT-80887 BMP - LAB USE ONLY 16:45:09 BAR TACKER CPT-90957 Port a cath flush 12:00:13 BAR TACKER CPT-TCMM Transitional Care Mgmt-Moderate 11:20:16 BAR TACKER CPT-93371 First Vx - Ix admin for Medicare patients 17:35:15 CDT CPT-12319 Fluzone Preservative Free Intramuscular Suspension 17:35 :15 CDT CPT-16011 Microalbumin - LAB USE ONLY 11:52:05 CDT CPT-TCMM Transitional Care Mgmt-Moderate 11:33:57 CDT CPT-14772 No Charge Offi Visit 14:11:29 CDT CPT-26534 Magnesium - LAB USE ONLY 10:45:44 CDT CPT-22479 Lipid - LAB USE ONLY 10:45:44 CDT CPT-42528 CBC - LAB USE ONLY 10:45:44 CDT CPT-94199 Venipuncture Draw Fee 10:45:43 CDT CPT-05029 Venipuncture Draw Fee 18:21:27 CDT CPT-JTINJ Asp/Joint Injection 18:38:04 CDT CPT-07095 Immunization Each Additional Inj 17:38:04 CDT CPT-36393 Immunization Single Admin 17:38:04 CDT CPT-93611 Prevnar 13 17:38:04 CDT CPT-23851 Fluzone Quadrivalent preservative free (>=3yrs.) 17:38: 04 CDT CPT-01150 No Charge Offi Visit 11:14:03 CDT CPT-45846 Chest 2V Frontal and Lat 14:00:18 CDT CPT-OV Office Visit 16:10:28 CDT CPT-JTINJ Asp/Joint Injection 09:03:57 CDT CPT-Cryo Cryotherapy 09:35:49 BAR TACKER CPT-JTINJ Asp/Joint Injection 09:34:45 BAR TACKER CPT-J2930 Solu Medrol 125 mg (Methyl Prednisolone Sodium Succinate) 20:37:27 CDT CPT-83768 Abx/Therapy Injection 20:37:27 CDT CPT-26048 Port a cath flush 08:15:51 CDT CPT-40484 Port a cath flush 09:54:16 CDT CPT-41151 Port a cath flush 09:38:02 CDT CPT-92113 Port a cath flush 11:00:27 BAR TACKER
--- OUTSIDE RECORDS SUMMARY | 2017-12-29 00:54 | XMS REPORT | Clinical Summary ---
Author Author Admin, QIE Organization [facility] Address Unknown Phone Unavailable Allergies, Adverse [...] 1 tablet by mouth every morning FUROSEMIDE [id number] Active Kortney Mccain Active POTASSIUM CHLORIDE 20 MEQ ORAL PACK 1 tab po BID POTASSIUM CHLORIDE 83389363362 Active Kortney Mccain Active ALBUTEROL SULFATE 0.083 % NEBU SOLN 1 vial neb q 4hrs for severe asthma. 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 FLUTICASONE PROPIONATE HFA 32067511665 Active Harinder Hernandez DO Active POTASSIUM CHLORIDE CR 10 MEQ CPCR 1 capsule by mouth daily POTASSIUM CHLORIDE 98508383776 Active Harinder Hernandez DO Active EPIPEN 2-BRUNA 0.3 MG/0.3ML INJ SOAJ 1 INJ NEEDED EPINEPHRINE 05307497544 Active Harinder Hernandez DO Active PREDNISONE 20 MG TAB 1 tab twice daily for 3 day, then one daily for three days PREDNISONE 50020996889 No Longer Active Harinder Hernandez DO Active PREDNISONE 20 MG TAB 1 tablet twice daily for 2 days, then 1 tablet once daily for 2 days PREDNISONE 12690669155 No Longer Active Harinder Hernandez DO Active ASMANEX 120 METERED DOSES 220 MCG/INH INH AEPB 2 puffs orally twice daily MOMETASONE FUROATE 99642522663 Active Jeri Sosa RPT,RMA Active TOPIRAMATE 25 MG TABS 1 tab po BID TOPIRAMATE 61750524776 No Longer Active Nettie Newberry APRN Active AMLODIPINE BESYLATE 5 MG ORAL TABS Take 1 tab po daily AMLODIPINE BESYLATE 60274010633 No Longer Active Nettie Newberry APRN Active MECLIZINE HCL 25 MG TAB 1 tablet three times daily for 3 days, then 1/2 tab three times daily for 3 days. MECLIZINE HCL 42146266186 No Longer Active Nettie Newberry APRN Active AMITRIPTYLINE HCL 25 MG ORAL TABS 1 q hs prn AMITRIPTYLINE HCL 22593123823 No Longer Active Nettie Newberry APRN Active DILAUDID 2 MG ORAL TABS Take 1/2 tab po every 4 hours as needed for pain 2014 HYDROMORPHONE HCL 48227743915 No Longer Active Nettie Newberry APRN Active CLOPIDOGREL BISULFATE 75 MG ORAL TABS 1 tab by mouth once daily CLOPIDOGREL BISULFATE 93477412429 Active Harinder Hernandez DO Active ATORVASTATIN CALCIUM 10 MG ORAL TABS 1 at bedtime ATORVASTATIN CALCIUM 00432094067 Active Tawnya Pardo MA Active LOVASTATIN 40 MG ORAL TABS Take 1 tab po every hs LOVASTATIN 74355660287 No Longer Active Harinder Hernandez DO Active PREDNISONE 20 MG TAB 2 tabs daily for 4 days, 1 tab daily for 4 days, 1/2 tab daily for 4 days PREDNISONE 26147387414 No Longer Active Harinder Hernandez DO Active LEVAQUIN 500 MG ORAL TABS Take 1 tab po daily x 8 days LEVOFLOXACIN 85104678561 No Longer Active Harinder Hernandez DO Active VENTOLIN HFA 108 (90 BASE) MCG/ACT AERS 2 -4 puffs four times a day PRN 2013 ALBUTEROL SULFATE 56533510485 No Longer Active Jeri Sosa RPT,RMA Active ACEBUTOLOL HCL 200 MG CAPS 1 cap in the morning and 2 caps in the evening ACEBUTOLOL HCL 94514478871 No Longer Active Harinder Hernandez DO Active CEFDINIR 300 MG ORAL CAPS take 1 cap po bid x 10 days CEFDINIR 26263944947 No Longer Active Hairnder Hernandez DO Active LOVASTATIN 40 MG TABS 1 pill by mouth nightly for cholesterol LOVASTATIN 06426089160 No Longer Active Nettie Newberry APRN Active NITROSTAT 0.4 MG SUBL 1 tab under tongueas needed for chest pain ( may take 3 total, 5 min apart, then call 911) NITROGLYCERIN 41808668471 No Longer Active Nettie Newberry APRN Active POTASSIUM CHLORIDE CR 10 MEQ CPCR 1 capsule by mouth daily 02/14 POTASSIUM CHLORIDE 56685861917 No Longer Active Nettie Newberry APRN Active TESSALON PERLES 100 MG CAP 1 to 2 tablets by mouth 3 times daily as needed for cough BENZONATATE 48284912275 No Longer Active Nettie Newberry APRN Active THEOPHYLLINE ER 200 MG ORAL [id number] Take 1 tab every 12 hours THEOPHYLLINE 92895589552 Active Kortney Mccain Active PREDNISONE 20 MG TAB 2 po qd x 5 days PREDNISONE 74047419639 No Longer Active Jae Morgan MD Active AZITHROMYCIN 250 MG TABS 2 po qd x 1 day, then 1 po qd x 4 days AZITHROMYCIN 24667620716 No Longer Active Jae Morgan MD Active PREDNISONE 20 MG TAB 1 tab twice daily for 3 day, then one daily for three days PREDNISONE 94151022671 No Longer Active Jae Morgan MD Active SINGULAIR 10 MG TABS 1 pill by mouth every evening for breathing. MONTELUKAST SODIUM 62969284852 Active Tawnya Pardo MA Active TYLENOL 325 MG TAB 3 by mouth q4h as needed ACETAMINOPHEN 30416795581 Active Harinder Hernnadez DO Active POTASSIUM CHLORIDE ER 10 MEQ CR-TABS take 1 tab po daily POTASSIUM CHLORIDE 18119368256 No Longer Active Harinder Hernandez DO Active PREDNISONE 20 MG TAB 1 TID x 2 days, then 1 BID x 3 days, then 1 Daily x 3 days, then stop PREDNISONE 08387716198 No Longer Active Jillina Frazell SPANISH INSTRUCTOR Active LEVAQUIN 500 MG TAB 1 tablet by mouth daily LEVOFLOXACIN 42128115253 No Longer Active Jillina Frazell SPANISH INSTRUCTOR Active NEURONTIN 300 MG CAP 1 cap by mouth three times daily for restless leg 06/22 GABAPENTIN 81611678082 No Longer Active Harinder Hernandez DO Active BENZONATATE 100 MG CAPS 1 cap po TID PRN BENZONATATE 28060154698 No Longer Active Harinder Hernandez DO Active MONTELUKAST SODIUM 10 MG TABS 1 tab po in the evening MONTELUKAST SODIUM 10092268899 No Longer Active Harinder Hernandez DO Active MUPIROCIN 2 % OINT apply to affected area BID x 14 days MUPIROCIN 14687494261 No Longer Active Harinder Hernandez DO Active TYLENOL EXTRA STRENGTH 500 MG TABS as needed ACETAMINOPHEN 80246243775 No Longer Active Harinder Hernandez DO Active PREDNISONE 10 MG TABS 1 tab po daily PREDNISONE 61901746824 No Longer Active Harinder Hernandez DO Active PREDNISONE 20 MG TAB 2 tabs daily for 4 days, 1 tab daily for 4 days, 1/2 tab daily for 4 days PREDNISONE 35297525563 No Longer Active Harinder Hernandez DO Active AZITHROMYCIN 250 MG TABS 2 po qd x 1 day, then 1 po qd x 4 days AZITHROMYCIN 09758750497 No Longer Active Harinder Hernandez DO Active PREDNISONE 20 MG TAB 3 tabs today, then 1 tab twice daily for 3 day, then one daily for three days PREDNISONE 70488673575 No Longer Active Harinder Hernandez DO Active NIFEDIAC CC 30 MG [id number] 1 tablet daily for raynaud's syndrome NIFEDIPINE 99261757684 No Longer Active Tawnya Pardo MA Active AMBIEN 10 MG TAB 1/2 tab by mouth at bedtime as needed for sleep ZOLPIDEM TARTRATE 12635553381 Active Ciera Pimentel Active CLONAZEPAM 1 MG TABS 1 tablet at bedtime for insomnia and restless legs 09/14 CLONAZEPAM 82557033716 Active Harinder Hernandez DO Active CLONAZEPAM 0.5 MG TABS 1 tab po daily CLONAZEPAM 87375629826 No Longer Active Harinder Hernandez DO Active PREDNISONE 10 MG TAB 1 tablet daily for COPD PREDNISONE 11259866783 Active Ciera Pimentel Active PROAIR HFA 108 (90 BASE) MCG/ACT AERS 2 puffs four times a day as needed 2012 ALBUTEROL SULFATE 98826085894 Active Harinder Hernandez DO Active FLOVENT HFA 110 MCG/ACT AERO 2 puffs inhaled b.i.d. FLUTICASONE PROPIONATE HFA 47464292958 Active Kortney Mccain Active ACIPHEX 20 MG TBEC 1 tab po daily RABEPRAZOLE SODIUM 27899676439 Active Kaylah Newberry Active CLONAZEPAM 0.5 MG TABS 1 tab po daily CLONAZEPAM 0.5 MG TABS 760578 CLONAZEPAM Inactive PREDNISONE 20 MG TAB 3 tabs today, then 1 tab twice daily for 3 day, then one daily for three days PREDNISONE 20 MG TAB 886772 PREDNISONE Inactive PREDNISONE 20 MG TAB 2 tabs daily for 4 days, 1 tab daily for 4 days, 1/2 tab daily for 4 days PREDNISONE 20 MG TAB 760677 PREDNISONE Inactive PREDNISONE 10 MG TABS 1 tab po daily PREDNISONE 10 MG TABS 069679 PREDNISONE Inactive TYLENOL EXTRA STRENGTH 500 MG TABS as needed TYLENOL EXTRA STRENGTH 500 MG TABS 778581 ACETAMINOPHEN Inactive MUPIROCIN 2 % OINT apply to affected area BID x 14 days MUPIROCIN 2 % OINT 757583 MUPIROCIN Inactive MONTELUKAST SODIUM 10 MG TABS 1 tab po in the evening MONTELUKAST SODIUM 10 MG TABS 20010818 MONTELUKAST SODIUM Inactive BENZONATATE 100 MG CAPS 1 cap po TID PRN BENZONATATE 100 MG CAPS 756920 BENZONATATE Inactive NEURONTIN 300 MG CAP 1 cap by mouth three times daily for restless leg 06/22 NEURONTIN 300 MG CAP 152937 GABAPENTIN Inactive LEVAQUIN 500 MG TAB 1 tablet by mouth daily LEVAQUIN 500 MG TAB 697011 LEVOFLOXACIN Inactive PREDNISONE 20 MG TAB 1 TID x 2 days, then 1 BID x 3 days, then 1 Daily x 3 days, then stop PREDNISONE 20 MG TAB 294710 PREDNISONE Inactive POTASSIUM CHLORIDE ER 10 MEQ CR-TABS take 1 tab po daily POTASSIUM CHLORIDE ER 10 MEQ CR-TABS POTASSIUM CHLORIDE Inactive PREDNISONE 20 MG TAB 1 tab twice daily for 3 day, then one daily for three days PREDNISONE 20 MG TAB 528250 PREDNISONE Inactive TESSALON PERLES 100 MG CAP 1 to 2 tablets by mouth 3 times daily as needed for cough TESSALON PERLES 100 MG CAP 651881 BENZONATATE Inactive POTASSIUM CHLORIDE CR 10 MEQ CPCR 1 capsule by mouth daily 02/14 POTASSIUM CHLORIDE CR 10 MEQ CPCR POTASSIUM CHLORIDE Inactive NITROSTAT 0.4 MG SUBL 1 tab under tongueas needed for chest pain ( may take 3 total, 5 min apart, then call 911) NITROSTAT 0.4 MG SUBL 076752 NITROGLYCERIN Inactive LOVASTATIN 40 MG TABS 1 pill by mouth nightly for cholesterol LOVASTATIN 40 MG TABS 597512 LOVASTATIN Inactive CEFDINIR 300 MG ORAL CAPS take 1 cap po bid x 10 days CEFDINIR 300 MG ORAL CAPS 634946 CEFDINIR Inactive ACEBUTOLOL HCL 200 MG CAPS 1 cap in the morning and 2 caps in the evening ACEBUTOLOL HCL 200 MG CAPS 594818 ACEBUTOLOL HCL Inactive VENTOLIN HFA 108 (90 BASE) MCG/ACT AERS 2 -4 puffs four times a day PRN 2013 VENTOLIN HFA 108 (90 BASE) MCG/ACT AERS ALBUTEROL SULFATE Inactive LEVAQUIN 500 MG ORAL TABS Take 1 tab po daily x 8 days LEVAQUIN 500 MG ORAL TABS 109773 LEVOFLOXACIN Inactive PREDNISONE 20 MG TAB 2 tabs daily for 4 days, 1 tab daily for 4 days, 1/2 tab daily for 4 days PREDNISONE 20 MG TAB 038135 PREDNISONE Inactive LOVASTATIN 40 MG ORAL TABS Take 1 tab po every hs LOVASTATIN 40 MG ORAL TABS 520395 LOVASTATIN Inactive DILAUDID 2 MG ORAL TABS Take 1/2 tab po every 4 hours as needed for pain 2014 DILAUDID 2 MG ORAL TABS 786935 HYDROMORPHONE HCL Inactive AMITRIPTYLINE HCL 25 MG ORAL TABS 1 q hs prn AMITRIPTYLINE HCL 25 MG ORAL TABS 499567 AMITRIPTYLINE HCL Inactive MECLIZINE HCL 25 MG TAB 1 tablet three times daily for 3 days, then 1/2 tab three times daily for 3 days. MECLIZINE HCL 25 MG TAB 078864 MECLIZINE HCL Inactive AMLODIPINE BESYLATE 5 MG ORAL TABS Take 1 tab po daily AMLODIPINE BESYLATE 5 MG ORAL TABS 726272 AMLODIPINE BESYLATE Inactive TOPIRAMATE 25 MG TABS 1 tab po BID TOPIRAMATE 25 MG TABS 524440 TOPIRAMATE Inactive PREDNISONE 20 MG TAB 1 tablet twice daily for 2 days, then 1 tablet once daily for 2 days PREDNISONE 20 MG TAB 285663 PREDNISONE Inactive PREDNISONE 20 MG TAB 1 tab twice daily for 3 day, then one daily for three days PREDNISONE 20 MG TAB 786517 PREDNISONE Inactive NIFEDIPINE ER 30 MG ORAL [id number] 1 daily NIFEDIPINE ER 30 MG ORAL [id number] NIFEDIPINE Inactive AMLODIPINE BESYLATE 5 MG TABS 1 tablet by mouth daily AMLODIPINE BESYLATE 5 MG TABS 760526 AMLODIPINE BESYLATE Inactive AZITHROMYCIN 250 MG TABS 2 po qd x 1 day, then 1 po qd x 4 days AZITHROMYCIN 250 MG TABS 7328830 AZITHROMYCIN Inactive AZITHROMYCIN 250 MG TABS 2 po qd x 1 day, then 1 po qd x 4 days AZITHROMYCIN 250 MG TABS 8524353 AZITHROMYCIN Inactive PREDNISONE 20 MG TAB 2 po qd x 5 days PREDNISONE 20 MG TAB 319018 PREDNISONE Inactive Vital Signs Date Name Value [...] Panel - Chemistry sodium, serum 137 mmol/L 197-767 5632/01/03 potassium, serum 3.4 mmol/L 3.5-5.2 chloride, serum [...] Magnesium - Chemistry cholesterol, serum 180 mg/dL 665-016 8987/08/08 triglyceride, serum, fasting 92 mg/dL 30-200 HDL cholesterol, serum 66 mg/dL 32-96 LDL cholesterol, serum 96 mg/dL 0-130 sodium, serum 142 mmol/L 486-059 4365/08/08 carbon dioxide, venous blood 27.4 mmol/L 21.0-32.0 [...] 10.0-20.0 Encounters Code Encounter Date Provider Facility CPT-56036 Level 3 Est. Patient 11:51:58 CDT Harinder Hernandez [facility] CPT-75546 Level 3 Est. Patient 11:30:05 CDT Harinder Cr [facility] CPT-27158 Level 4 Est. Patient 10:19:23 CDT Harinder Cr [facility] CPT-39737 Level 3 Est. Patient 09:58:58 CDT Harinder Cr [facility] CPT-87513 Level 3 Est. Patient 12:37:21 CDT Harinder Cr [facility] CPT-25383 Level 3 Est. Patient 18:37:17 CDT Harinder Cr [facility] CPT-56735 Level 4 Est. Patient 11:15:54 CDT Nettie Rohith [facility] CPT-41716 Level 3 Est. Patient 16:42:24 CDT Harinder Cr [facility] CPT-76902 Level 3 Est. Patient 15:03:36 CDT Harinder Cr [facility] CPT-78101 Level 3 Est. Patient 15:03:20 CDT Harinder Cr [facility] CPT-07342 Level 3 Est. Patient 12:14:34 CDT Harinder Cr [facility] CPT-17668 Level 3 Est. Patient 13:47:15 CDT Harinder Shaye [facility] CPT-49767 Level 3 Est. Patient 14:08:24 CDT Harinder Cr [facility] CPT-24281 Level 3 Est. Patient 10:07:15 CDT Harinder Cr [facility] CPT-47345 Level 3 Est. Patient 10:06:59 CDT Harinder Hernandez [facility] CPT-49689 Level 3 Est. Patient 15:53:29 CDT Jae Morgan MD [facility] CPT-93643 Level 3 Est. Patient 17:19:04 CDT Harinder Hernandez [facility] CPT-22755 Level 3 Est. Patient 11:13:01 CDT Harinder Hernandez [facility] CPT-41644 Level 3 Est. Patient 09:03:58 CDT Harinder Cr [facility] CPT-85679 Level 3 Est. Patient 14:46:45 [employer] OPERATOR HELPER Harinder Cr [facility] CPT-21958 Level 3 Est. Patient 09:35:49 [employer] OPERATOR HELPER Harinder Hernandez [facility] CPT-11877 Level 3 Est. Patient 09:29:37 [employer] OPERATOR HELPER Harinder Hernandez [facility] CPT-86762 Level 3 Est. Patient 15:51:07 CDT Harinder Hernandez [facility] CPT-71087 Level 3 Est. Patient 18:13:13 CDT Harinder Cr [facility] CPT-54835 Level 3 Est. Patient 10:44:19 CDT Harinder Cr [facility] CPT-97826 Level 4 Est. Patient 10:07:19 HO[employer] P[employer] OPERATOR HELPER Harinder Cr [facility] CPT-56825 Level 3 Est. Patient 15:59:32 [employer] OPERATOR HELPER Harinder Cr [facility] Procedures Code Procedure Name Date Entry Date Standard Description CPT-56096 Hip, complete, 2-3 views - XRAY USE ONLY 10:28:40 CDT CPT-01079 BMP - LAB USE ONLY 16:45:09 [employer] OPERATOR HELPER CPT-88483 Port a cath flush 12:00:13 [employer] OPERATOR HELPER CPT-TCMM Transitional Care Mgmt-Moderate 11:20:16 [employer] OPERATOR HELPER CPT-27289 First Vx - Ix admin for Medicare patients 17:35:15 CDT CPT-59170 Fluzone Preservative Free Intramuscular Suspension 17:35 :15 CDT CPT-47215 Microalbumin - LAB USE ONLY 11:52:05 CDT CPT-TCMM Transitional Care Mgmt-Moderate 11:33:57 CDT CPT-52657 No Charge Offi Visit 14:11:29 CDT CPT-90015 Magnesium - LAB USE ONLY 10:45:44 CDT CPT-79220 Lipid - LAB USE ONLY 10:45:44 CDT CPT-56346 CBC - LAB USE ONLY 10:45:44 CDT CPT-67463 Venipuncture Draw Fee 10:45:43 CDT CPT-42422 Venipuncture Draw Fee 18:21:27 CDT CPT-JTINJ Asp/Joint Injection 18:38:04 CDT CPT-44735 Immunization Each Additional Inj 17:38:04 CDT CPT-04721 Immunization Single Admin 17:38:04 CDT CPT-75476 Prevnar 13 17:38:04 CDT CPT-71421 Fluzone Quadrivalent preservative free (>=3yrs.) 17:38: 04 CDT CPT-10195 No Charge Offi Visit 11:14:03 CDT CPT-86525 Chest 2V Frontal and Lat 14:00:18 CDT CPT-OV Office Visit 16:10:28 CDT CPT-JTINJ Asp/Joint Injection 09:03:57 CDT CPT-Cryo Cryotherapy 09:35:49 [employer] OPERATOR HELPER CPT-JTINJ Asp/Joint Injection 09:34:45 [employer] OPERATOR HELPER CPT-J2930 Solu Medrol 125 mg (Methyl Prednisolone Sodium Succinate) 20:37:27 CDT CPT-83850 Abx/Therapy Injection 20:37:27 CDT CPT-00729 Port a cath flush 08:15:51 CDT CPT-49119 Port a cath flush 09:54:16 CDT CPT-59826 Port a cath flush 09:38:02 CDT CPT-69319 Port a cath flush 11:00:27 [employer] OPERATOR HELPER
--- OUTSIDE RECORDS SUMMARY | 2017-12-29 00:56 | XMS REPORT | Clinical Summary ---
[...] TABLET 1 tablet by mouth daily SPIRONOLACTONE [id number] No Longer Active Jeri Nieto Active PREDNISONE 20 MG ORAL TABLET 2 tablets by mouth today, then 1 tablet by mouth days 2-3 PREDNISONE 76263432099 No Longer Active Jeri Nieto Active NITROSTAT 0.4 MG SUBLINGUAL TABLET SUBLINGUAL 1 tab SL q5min PRN chest pain NITROGLYCERIN 23428864405 Active Meenu Alejo LPN Active THEOPHYLLINE ER 300 MG ORAL TABLET EXTENDED RELEASE 12 HOUR 1 po BID THEOPHYLLINE 91974275672 Active Kortney Mccain Active POTASSIUM CHLORIDE ER 20 MEQ ORAL TABLET EXTENDED RELEASE 1 po q day POTASSIUM CHLORIDE 25464401458 Active Kortney Mccain Active POTASSIUM CHLORIDE 20 MEQ ORAL PACKET 1 tab po q day POTASSIUM CHLORIDE 99505124684 No Longer Active oKrtney Mccain Active POTASSIUM CHLORIDE ER 10 MEQ ORAL CAPSULE EXTENDED RELEASE 1 capsule BID 2016 POTASSIUM CHLORIDE 73808081241 No Longer Active Kortney Mccain Active LASIX 20 MG ORAL TABLET 1 tablet by mouth every morning FUROSEMIDE 64804488769 No Longer Active Kortney Mccain Active FLUOXETINE HCL 10 MG ORAL CAPSULE 1 po qd for depression/anxiety FLUOXETINE HCL 27556323759 Active Meenu Alejo LPN Active VOLTAREN 1 % TRANSDERMAL GEL apply q 6-8 hour to left arm as needed for pain DICLOFENAC SODIUM 70320697682 Active Kortney Mccain Active ALBUTEROL SULFATE (2.5 MG/3ML) 0.083% INHALATION NEBULIZATION SOLUTION 1 vial neb q 4hrs for severe asthma. 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 NIFEDIPINE 12813571902 Active Kortney Mccain Active AMLODIPINE BESYLATE 5 MG ORAL TABLET 1 tablet by mouth daily 2016 AMLODIPINE BESYLATE 34139114032 No Longer Active Harinder Hernandez DO Active TOPAMAX 25 MG ORAL TABLET 1 tab po BID TOPIRAMATE 91354749387 Active Kortney Mccain Active FLUTICASONE PROPIONATE 50 MCG/ACT NASAL SUSPENSION 2 sprays per nostril daily PRN Allergies FLUTICASONE PROPIONATE 10354112622 Active Meenu Alejo LPN Active NIFEDIPINE ER 30 MG ORAL TABLET EXTENDED RELEASE 24 HOUR 1 daily NIFEDIPINE 01955376933 No Longer Active Harinder Hernandez DO Active FLOVENT HFA 110 MCG/ACT INHALATION AEROSOL 2 puffs inhaled b.i.d. FLUTICASONE PROPIONATE HFA 03723194265 Active Harinder Hernandez DO Active EPIPEN 2-BRUNA 0.3 MG/0.3ML INJECTION SOLUTION AUTO-INJECTOR 1 INJ NEEDED EPINEPHRINE 98750345013 Active Meenu Alejo LPN Active PREDNISONE 20 MG ORAL TABLET 1 tab twice daily for 3 day, then one daily for three days PREDNISONE 69667607726 No Longer Active Harinder Hernandez DO Active PREDNISONE 20 MG ORAL TABLET 1 tablet twice daily for 2 days, then 1 tablet once daily for 2 days PREDNISONE 65570118703 No Longer Active Harinder Hernandez DO Active ASMANEX 120 METERED DOSES 220 MCG/INH INHALATION AEROSOL POWDER BREATH ACTIVATED 2 puffs orally twice daily MOMETASONE FUROATE 01496036940 Active Jeri Sosa LPN Active TOPIRAMATE 25 MG ORAL TABLET 1 tab po BID TOPIRAMATE 43236201277 No Longer Active Nettie Newberry APRN Active AMLODIPINE BESYLATE 5 MG ORAL TABLET Take 1 tab po daily AMLODIPINE BESYLATE 80887888487 No Longer Active Nettie Newberry APRN Active MECLIZINE HCL 25 MG ORAL TABLET 1 tablet three times daily for 3 days, then 1/ 2 tab three times daily for 3 days. MECLIZINE HCL 68866504388 No Longer Active Nettie Newberry APRN Active AMITRIPTYLINE HCL 25 MG ORAL TABLET 1 q hs prn AMITRIPTYLINE HCL 56214443926 No Longer Active Nettie Newberry APRN Active DILAUDID 2 MG ORAL TABLET Take 1/2 tab po every 4 hours as needed for pain HYDROMORPHONE HCL 72717586954 No Longer Active Nettie Newberry APRN Active CLOPIDOGREL BISULFATE 75 MG ORAL TABLET 1 tab by mouth once daily CLOPIDOGREL BISULFATE 81024375841 Active Meenu Alejo LPN Active ATORVASTATIN CALCIUM 10 MG ORAL TABLET 1 at bedtime ATORVASTATIN CALCIUM 20329683672 Active Kortney Mccain Active LOVASTATIN 40 MG ORAL TABLET Take 1 tab po every hs LOVASTATIN 26463762201 No Longer Active Harinder Hernandez DO Active PREDNISONE 20 MG ORAL TABLET 2 tabs daily for 4 days, 1 tab daily for 4 days, 1/2 tab daily for 4 days PREDNISONE 73724092656 No Longer Active Harinder Hernandez DO Active LEVAQUIN 500 MG ORAL TABLET Take 1 tab po daily x 8 days LEVOFLOXACIN 92111350216 No Longer Active Harinder Hernandez DO Active VENTOLIN HFA 108 (90 Base) MCG/ACT INHALATION AEROSOL SOLUTION 2 -4 puffs four times a day PRN ALBUTEROL SULFATE 75835964569 No Longer Active Jeri Sosa LPN Active ACEBUTOLOL HCL 200 MG ORAL CAPSULE 1 cap in the morning and 2 caps in the evening ACEBUTOLOL HCL 80285945789 No Longer Active Harinder Hernandez DO Active CEFDINIR 300 MG ORAL CAPSULE take 1 cap po bid x 10 days CEFDINIR 97331147672 No Longer Active Harinder Hernandez DO Active LOVASTATIN 40 MG ORAL TABLET 1 pill by mouth nightly for cholesterol LOVASTATIN 82543405038 No Longer Active Nettie Newberry APRN Active NITROSTAT 0.4 MG SUBLINGUAL TABLET SUBLINGUAL 1 tab under tongueas needed for chest pain ( may take 3 total, 5 min apart, then call 911) NITROGLYCERIN 95418599060 No Longer Active Nettie Newberry APRN Active POTASSIUM CHLORIDE ER 10 MEQ ORAL CAPSULE EXTENDED RELEASE 1 capsule by mouth daily POTASSIUM CHLORIDE 46115505763 No Longer Active Nettie Newberry APRN Active TESSALON PERLES 100 MG ORAL CAPSULE 1 to 2 tablets by mouth 3 times daily as needed for cough BENZONATATE 98632652322 No Longer Active Nettie Newberry APRN Active PREDNISONE 20 MG ORAL TABLET 2 po qd x 5 days PREDNISONE 23589751562 No Longer Active Jae Morgan MD Active AZITHROMYCIN 250 MG ORAL TABLET 2 po qd x 1 day, then 1 po qd x 4 days 12/30 AZITHROMYCIN 73132017154 No Longer Active Jae Morgan MD Active PREDNISONE 20 MG ORAL TABLET 1 tab twice daily for 3 day, then one daily for three days PREDNISONE 02156834129 No Longer Active Jae Morgan MD Active SINGULAIR 10 MG ORAL TABLET 1 pill by mouth every evening for breathing. 2014 MONTELUKAST SODIUM 86023641736 Active Meenu Alejo CASHIER GENERAL Active TYLENOL 325 MG ORAL TABLET 3 by mouth q4h as needed ACETAMINOPHEN 18361480249 Active Harinder Hernandez DO Active POTASSIUM CHLORIDE ER 10 MEQ ORAL TABLET EXTENDED RELEASE take 1 tab po daily POTASSIUM CHLORIDE 20476669489 No Longer Active Harinder Hernandez DO Active PREDNISONE 20 MG ORAL TABLET 1 TID x 2 days, then 1 BID x 3 days, then 1 Daily x 3 days, then stop PREDNISONE 46727302733 No Longer Active Jillina Fradankl MERCHANDISE [employer]OW TEAM LEADER Active LEVAQUIN 500 MG ORAL TABLET 1 tablet by mouth daily LEVOFLOXACIN 25766199155 No Longer Active Jillina Frazell MERCHANDISE FLOW TEAM LEADER Active NEURONTIN 300 MG ORAL CAPSULE 1 cap by mouth three times daily for restless leg GABAPENTIN 11232308691 No Longer Active Harinder Hernandez DO Active BENZONATATE 100 MG ORAL CAPSULE 1 cap po TID PRN BENZONATATE 22381268934 No Longer Active Harinder Hernandez DO Active MONTELUKAST SODIUM 10 MG ORAL TABLET 1 tab po in the evening 2014 MONTELUKAST SODIUM 01505428694 No Longer Active Harinder Hernandez DO Active MUPIROCIN 2 % EXTERNAL OINTMENT apply to affected area BID x 14 days MUPIROCIN 96970535635 No Longer Active Harinder Hernandez DO Active TYLENOL EXTRA STRENGTH 500 MG ORAL TABLET as needed ACETAMINOPHEN 01670823302 No Longer Active Harinder Hernandez DO Active PREDNISONE 10 MG ORAL TABLET 1 tab po daily PREDNISONE 27492449538 No Longer Active Harinder Hernandez DO Active PREDNISONE 20 MG ORAL TABLET 2 tabs daily for 4 days, 1 tab daily for 4 days, 1/2 tab daily for 4 days PREDNISONE 60929162333 No Longer Active Harinder Hernandez DO Active AZITHROMYCIN 250 MG ORAL TABLET 2 po qd x 1 day, then 1 po qd x 4 days 04/06 AZITHROMYCIN 85196522297 No Longer Active Harinder Hernandez DO Active PREDNISONE 20 MG ORAL TABLET 3 tabs today, then 1 tab twice daily for 3 day, then one daily for three days PREDNISONE 92700120693 No Longer Active Harinder Hernandez DO Active NIFEDIAC CC 30 MG ORAL TABLET EXTENDED RELEASE 24 HOUR 1 tablet daily for raynaud's syndrome NIFEDIPINE 06155574828 No Longer Active Tawnya Pardo MA Active AMBIEN 10 MG ORAL TABLET 1/2 tab by mouth at bedtime as needed for sleep 2013 ZOLPIDEM TARTRATE 23907389464 Active Meenu Alejo LPN Active CLONAZEPAM 1 MG ORAL TABLET 1 tablet at bedtime for insomnia and restless legs CLONAZEPAM 03603208361 Active Meenu Alejo LPN Active CLONAZEPAM 0.5 MG ORAL TABLET 1 tab po daily CLONAZEPAM 62570051534 No Longer Active Harinder Hernandez DO Active PREDNISONE 10 MG ORAL TABLET 1 tablet daily for COPD PREDNISONE 30101162139 Active Kortney Mccain Active PROAIR HFA 108 (90 Base) MCG/ACT INHALATION AEROSOL SOLUTION 2 puffs four times a day as needed ALBUTEROL SULFATE 13561794897 Active Harinder Hernandez DO Active FLOVENT HFA 110 MCG/ACT INHALATION AEROSOL 2 puffs inhaled b.i.d. FLUTICASONE PROPIONATE HFA 98479768238 Active Kortney Mccain Active ACIPHEX 20 MG ORAL TABLET DELAYED RELEASE 1 tab po daily RABEPRAZOLE SODIUM 43104412211 Active Meenu Alejo LPN Active CLONAZEPAM 0.5 MG ORAL TABLET 1 tab po daily CLONAZEPAM 0.5 MG ORAL TABLET 994311 CLONAZEPAM Inactive PREDNISONE 20 MG ORAL TABLET 3 tabs today, then 1 tab twice daily for 3 day, then one daily for three days PREDNISONE 20 MG ORAL TABLET 944332 PREDNISONE Inactive PREDNISONE 20 MG ORAL TABLET 2 tabs daily for 4 days, 1 tab daily for 4 days, 1/2 tab daily for 4 days PREDNISONE 20 MG ORAL TABLET 951201 PREDNISONE Inactive PREDNISONE 10 MG ORAL TABLET 1 tab po daily PREDNISONE 10 MG ORAL TABLET 978486 PREDNISONE Inactive TYLENOL EXTRA STRENGTH 500 MG ORAL TABLET as needed TYLENOL EXTRA STRENGTH 500 MG ORAL TABLET 546132 ACETAMINOPHEN Inactive MUPIROCIN 2 % EXTERNAL OINTMENT apply to affected area BID x 14 days MUPIROCIN 2 % EXTERNAL OINTMENT 172861 MUPIROCIN Inactive MONTELUKAST SODIUM 10 MG ORAL TABLET 1 tab po in the evening 2014 MONTELUKAST SODIUM 10 MG ORAL TABLET 309901 MONTELUKAST SODIUM Inactive BENZONATATE 100 MG ORAL CAPSULE 1 cap po TID PRN BENZONATATE 100 MG ORAL CAPSULE 612602 BENZONATATE Inactive NEURONTIN 300 MG ORAL CAPSULE 1 cap by mouth three times daily for restless leg NEURONTIN 300 MG ORAL CAPSULE 937251 GABAPENTIN Inactive LEVAQUIN 500 MG ORAL TABLET 1 tablet by mouth daily LEVAQUIN 500 MG ORAL TABLET 761234 LEVOFLOXACIN Inactive PREDNISONE 20 MG ORAL TABLET 1 TID x 2 days, then 1 BID x 3 days, then 1 Daily x 3 days, then stop PREDNISONE 20 MG ORAL TABLET 982739 PREDNISONE Inactive POTASSIUM CHLORIDE ER 10 MEQ ORAL TABLET EXTENDED RELEASE take 1 tab po daily POTASSIUM CHLORIDE ER 10 MEQ ORAL TABLET EXTENDED RELEASE POTASSIUM CHLORIDE Inactive PREDNISONE 20 MG ORAL TABLET 1 tab twice daily for 3 day, then one daily for three days PREDNISONE 20 MG ORAL TABLET 347322 PREDNISONE Inactive TESSALON PERLES 100 MG ORAL CAPSULE 1 to 2 tablets by mouth 3 times daily as needed for cough TESSALON PERLES 100 MG ORAL CAPSULE 100431 BENZONATATE Inactive POTASSIUM CHLORIDE ER 10 MEQ ORAL CAPSULE EXTENDED RELEASE 1 capsule by mouth daily POTASSIUM CHLORIDE ER 10 MEQ ORAL CAPSULE EXTENDED RELEASE POTASSIUM CHLORIDE Inactive NITROSTAT 0.4 MG SUBLINGUAL TABLET SUBLINGUAL 1 tab under tongueas needed for chest pain ( may take 3 total, 5 min apart, then call 911) NITROSTAT 0.4 MG SUBLINGUAL TABLET SUBLINGUAL 370985 NITROGLYCERIN Inactive LOVASTATIN 40 MG ORAL TABLET 1 pill by mouth nightly for cholesterol LOVASTATIN 40 MG ORAL TABLET 156827 LOVASTATIN Inactive CEFDINIR 300 MG ORAL CAPSULE take 1 cap po bid x 10 days CEFDINIR 300 MG ORAL CAPSULE 526230 CEFDINIR Inactive ACEBUTOLOL HCL 200 MG ORAL CAPSULE 1 cap in the morning and 2 caps in the evening ACEBUTOLOL HCL 200 MG ORAL CAPSULE 162283 ACEBUTOLOL HCL Inactive VENTOLIN HFA 108 (90 Base) MCG/ACT INHALATION AEROSOL SOLUTION 2 -4 puffs four times a day PRN VENTOLIN HFA 108 (90 Base) MCG/ ACT INHALATION AEROSOL SOLUTION ALBUTEROL SULFATE Inactive LEVAQUIN 500 MG ORAL TABLET Take 1 tab po daily x 8 days LEVAQUIN 500 MG ORAL TABLET 909569 LEVOFLOXACIN Inactive PREDNISONE 20 MG ORAL TABLET 2 tabs daily for 4 days, 1 tab daily for 4 days, 1/2 tab daily for 4 days PREDNISONE 20 MG ORAL TABLET 443135 PREDNISONE Inactive LOVASTATIN 40 MG ORAL TABLET Take 1 tab po every hs LOVASTATIN 40 MG ORAL TABLET 454306 LOVASTATIN Inactive DILAUDID 2 MG ORAL TABLET Take 1/2 tab po every 4 hours as needed for pain DILAUDID 2 MG ORAL TABLET 317607 HYDROMORPHONE HCL Inactive AMITRIPTYLINE HCL 25 MG ORAL TABLET 1 q hs prn AMITRIPTYLINE HCL 25 MG ORAL TABLET 557994 AMITRIPTYLINE HCL Inactive MECLIZINE HCL 25 MG ORAL TABLET 1 tablet three times daily for 3 days, then 1/ 2 tab three times daily for 3 days. MECLIZINE HCL 25 MG ORAL TABLET 278059 MECLIZINE HCL Inactive AMLODIPINE BESYLATE 5 MG ORAL TABLET Take 1 tab po daily AMLODIPINE BESYLATE 5 MG ORAL TABLET 385360 AMLODIPINE BESYLATE Inactive TOPIRAMATE 25 MG ORAL TABLET 1 tab po BID TOPIRAMATE 25 MG ORAL TABLET 930851 TOPIRAMATE Inactive PREDNISONE 20 MG ORAL TABLET 1 tablet twice daily for 2 days, then 1 tablet once daily for 2 days PREDNISONE 20 MG ORAL TABLET 554810 PREDNISONE Inactive PREDNISONE 20 MG ORAL TABLET 1 tab twice daily for 3 day, then one daily for three days PREDNISONE 20 MG ORAL TABLET 342995 PREDNISONE Inactive NIFEDIPINE ER 30 MG ORAL TABLET EXTENDED RELEASE 24 HOUR 1 daily NIFEDIPINE ER 30 MG ORAL TABLET EXTENDED RELEASE 24 HOUR NIFEDIPINE Inactive AMLODIPINE BESYLATE 5 MG ORAL TABLET 1 tablet by mouth daily 2016 AMLODIPINE BESYLATE 5 MG ORAL TABLET 516679 AMLODIPINE BESYLATE Inactive LASIX 20 MG ORAL TABLET 1 tablet by mouth every morning LASIX 20 MG ORAL TABLET 518723 FUROSEMIDE Inactive POTASSIUM CHLORIDE ER 10 MEQ ORAL CAPSULE EXTENDED RELEASE 1 capsule BID 2016 POTASSIUM CHLORIDE ER 10 MEQ ORAL CAPSULE EXTENDED RELEASE POTASSIUM CHLORIDE Inactive POTASSIUM CHLORIDE 20 MEQ ORAL PACKET 1 tab po q day POTASSIUM CHLORIDE 20 MEQ ORAL PACKET 9018557 POTASSIUM CHLORIDE Inactive PREDNISONE 20 MG ORAL TABLET 2 tablets by mouth today, then 1 tablet by mouth days 2-3 PREDNISONE 20 MG ORAL TABLET 701100 PREDNISONE Inactive SPIRONOLACTONE 25 MG ORAL TABLET 1 tablet by mouth daily SPIRONOLACTONE 25 MG ORAL TABLET 708749 SPIRONOLACTONE Inactive AZITHROMYCIN 250 MG ORAL TABLET 2 po qd x 1 day, then 1 po qd x 4 days 04/06 AZITHROMYCIN 250 MG ORAL TABLET 290948 AZITHROMYCIN Inactive AZITHROMYCIN 250 MG ORAL TABLET 2 po qd x 1 day, then 1 po qd x 4 days 12/30 AZITHROMYCIN 250 MG ORAL TABLET 989455 AZITHROMYCIN Inactive PREDNISONE 20 MG ORAL TABLET 2 po qd x 5 days PREDNISONE 20 MG ORAL TABLET 758062 PREDNISONE Inactive Vital Signs Date Name Value [...] Panel - Chemistry sodium, serum 140 mmol/L 866-258 9782/07/13 potassium, serum 3.2 mmol/L 3.5-5.2 chloride, serum 103 mmol/L 98-107 carbon dioxide, venous blood 26.9 mmol/L 21.0-32.0 blood glucose 93 mg/dL 65-110 calcium, serum 9.2 mg/dL 8.5-10.1 urea nitrogen, blood 13 mg/dL 7-18 creatinine, serum 0.84 mg/dL 0.60-1.30 sodium, serum 140 mmol/L 353-025 2613/08/21 potassium, serum 3.8 mmol/L 3.5-5.2 chloride, serum [...] ... - Chemistry sodium, serum 141 mmol/L 495-686 9908/08/07 carbon dioxide, venous blood 34.0 mmol/L 21.0-32.0 [...] 1.40 mg/dL 0.00-1.00 cholesterol, serum 192 mg/dL 437-200 0530/10/19 triglyceride, serum, fasting 71 mg/dL 30-200 HDL cholesterol, serum 72 mg/dL 32-60 LDL cholesterol, serum 106 mg/dL 0-130 Lab Report: Rapid Strep - Lab Microbial identification kit, rapid strep method Negative Negative Lab Report: THEOPHYLLINE - Toxicology theophylline level, serum 3.1 ug/mL 10.0-20.0 Encounters Code Encounter Date Provider Facility CPT-58065 Level 4 Est. Patient 10:17:51 ELEVATED WORK PLATFORM OPERATOR Harinder Cr [facility] CPT-99845 Level 3 Est. Patient 12:36:15 ELEVATED WORK PLATFORM OPERATOR Harinder Hernandez [facility] CPT-66945 Level 3 Est. Patient 15:14:45 ELEVATED WORK PLATFORM OPERATOR Harinder Cr [facility] CPT-11318 Level 4 Est. Patient 14:45:25 CDT Harinder Cr [facility] CPT-49178 Level 4 Est. Patient 09:15:13 CDT Harinder Cr [facility] CPT-85135 Level 3 Est. Patient 11:51:58 CDT Harinder Cr [facility] CPT-48328 Level 3 Est. Patient 11:30:05 CDT Harinder Cr [facility] CPT-22172 Level 4 Est. Patient 10:19:23 CDT Harinder Cr [facility] CPT-57459 Level 3 Est. Patient 09:58:58 CDT Harinder Cr [facility] CPT-77420 Level 3 Est. Patient 12:37:21 CDT Harinder Hernandez [facility] CPT-17302 Level 3 Est. Patient 18:37:17 CDT Harinder Hernandez [facility] CPT-24276 Level 4 Est. Patient 11:15:54 CDT Nettie Newberry APRN [facility] CPT-08351 Level 3 Est. Patient 16:42:24 CDT Harinder Hernandez [facility] CPT-11376 Level 3 Est. Patient 15:03:36 CDT Harinder Hernandez [facility] CPT-29802 Level 3 Est. Patient 15:03:20 CDT Harinder Hernandez [facility] CPT-23066 Level 3 Est. Patient 12:14:34 CDT Harinder Hernandez [facility] CPT-42890 Level 3 Est. Patient 13:47:15 CDT Haridner Hernandez [facility] CPT-42864 Level 3 Est. Patient 14:08:24 CDT Harinder Hernandez [facility] CPT-27959 Level 3 Est. Patient 10:07:15 CDT Harinder Hernandez [facility] CPT-61063 Level 3 Est. Patient 10:06:59 CDT Harinder Cr [facility] CPT-92102 Level 3 Est. Patient 15:53:29 CDT Jae Morgan MD [facility] CPT-91105 Level 3 Est. Patient 17:19:04 CDT Harinder Hernandez [facility] CPT-25579 Level 3 Est. Patient 11:13:01 CDT Harinder Hernandez [facility] CPT-33142 Level 3 Est. Patient 09:03:58 CDT Harinder Hernandez [facility] CPT-88567 Level 3 Est. Patient 14:46:45 ELEVATED WORK PLATFORM OPERATOR Harinder Hernandez [facility] CPT-02575 Level 3 Est. Patient 09:35:49 ELEVATED WORK PLATFORM OPERATOR Harinder Hernandez [facility] CPT-00272 Level 3 Est. Patient 09:29:37 ELEVATED WORK PLATFORM OPERATOR Harinder Hernandez [facility] CPT-24071 Level 3 Est. Patient 15:51:07 CDT Harinder Hernandez [facility] CPT-18515 Level 3 Est. Patient 18:13:13 CDT Harinder Hernandez [facility] CPT-96012 Level 3 Est. Patient 10:44:19 CDT Harinder Hernandez [facility] CPT-44228 Level 4 Est. Patient 10:07:19 ELEVATED WORK PLATFORM OPERATOR Harinder Hernandez [facility] CPT-27869 Level 3 Est. Patient 15:59:32 ELEVATED WORK PLATFORM OPERATOR Harinder Hernandez [facility] Procedures Code Procedure Name Date Entry Date Standard Description CPT-16466 Bone Density - XRAY USE ONLY 14:43:42 CDT CPT-G0009 Administration of Pneumococcal Vaccine 10:33:25 ELEVATED WORK PLATFORM OPERATOR CPT-50250 Pneumovax 23 Injection Injectable 25 MCG/0.5ML 10:33:25 ELEVATED WORK PLATFORM OPERATOR CPT-02485 First Vx - Ix admin for Medicare patients 10:33:25 ELEVATED WORK PLATFORM OPERATOR CPT-25732 Fluzone Quadrivalent Intramuscular Suspension 0.5 ML 10: 33:25 ELEVATED WORK PLATFORM OPERATOR CPT-Cryo Cryotherapy 10:17:51 ELEVATED WORK PLATFORM OPERATOR CPT-G0438 Initial Annual Wellness Exam 10:08:59 ELEVATED WORK PLATFORM OPERATOR CPT-78954 Abd compl w upright - XRAY USE ONLY 14:48:09 CDT 02/18 CPT-51927 Port a cath flush 13:46:05 CDT CPT-19894 Hip, complete, 2-3 views - XRAY USE ONLY 10:28:40 CDT CPT-99928 BMP - LAB USE ONLY 16:45:09 ELEVATED WORK PLATFORM OPERATOR CPT-16702 Port a cath flush 12:00:13 ELEVATED WORK PLATFORM OPERATOR CPT-TCMM Transitional Care Mgmt-Moderate 11:20:16 ELEVATED WORK PLATFORM OPERATOR CPT-68501 First Vx - Ix admin for Medicare patients 17:35:15 CDT CPT-46043 Fluzone Preservative Free Intramuscular Suspension 17:35 :15 CDT CPT-51737 Microalbumin - LAB USE ONLY 11:52:05 CDT CPT-TCMM Transitional Care Mgmt-Moderate 11:33:57 CDT CPT-03993 No Charge Offi Visit 14:11:29 CDT CPT-44848 Magnesium - LAB USE ONLY 10:45:44 CDT CPT-71070 Lipid - LAB USE ONLY 10:45:44 CDT CPT-60452 CBC - LAB USE ONLY 10:45:44 CDT CPT-54849 Venipuncture Draw Fee 10:45:43 CDT CPT-44732 Venipuncture Draw Fee 18:21:27 CDT CPT-JTINJ Asp/Joint Injection 18:38:04 CDT CPT-44427 Immunization Each Additional Inj 17:38:04 CDT CPT-60479 Immunization Single Admin 17:38:04 CDT CPT-30473 Prevnar 13 17:38:04 CDT CPT-77480 Fluzone Quadrivalent preservative free (>=3yrs.) 17:38: 04 CDT CPT-68579 No Charge Offi Visit 11:14:03 CDT CPT-17047 Chest 2V Frontal and Lat 14:00:18 CDT CPT-OV Office Visit 16:10:28 CDT CPT-JTINJ Asp/Joint Injection 09:03:57 CDT CPT-Cryo Cryotherapy 09:35:49 ELEVATED WORK PLATFORM OPERATOR CPT-JTINJ Asp/Joint Injection 09:34:45 ELEVATED WORK PLATFORM OPERATOR CPT-J2930 Solu Medrol 125 mg (Methyl Prednisolone Sodium Succinate) 20:37:27 CDT CPT-63383 Abx/Therapy Injection 20:37:27 CDT CPT-54079 Port a cath flush 08:15:51 CDT CPT-89325 Port a cath flush 09:54:16 CDT CPT-96052 Port a cath flush 09:38:02 CDT CPT-10741 Port a cath flush 11:00:27 ELEVATED WORK PLATFORM OPERATOR
--- OUTSIDE RECORDS SUMMARY | 2017-12-29 00:57 | XMS REPORT | Clinical Summary ---
Author Author Admin, QIE Organization [facility] Address Unknown Phone Unavailable Allergies, Adverse Reactions, [...] tenosynovitis Nausea and vomiting 787.01 Resolved Jae Morgna MD Nausea with vomiting Diarrhea 787.91 Resolved [...] NDC Status Provider Patient Instruction POTASSIUM CHLORIDE ER 20 MEQ ORAL CR-TABS 1 po q day POTASSIUM CHLORIDE 81773482747 Active Kortney Mccain Active POTASSIUM CHLORIDE 20 MEQ ORAL PACK 1 tab po q day POTASSIUM CHLORIDE 02266575068 No Longer Active Kortney Mccain Active POTASSIUM CHLORIDE CR 10 MEQ CPCR 1 capsule BID POTASSIUM CHLORIDE 92001442683 No Longer Active Kortney Mccain Active LASIX 20 MG TAB 1 tablet by mouth every morning FUROSEMIDE 15767847831 No Longer Active Kortney Mccain Active SPIRONOLACTONE 25 MG TAB 1 tablet by mouth daily SPIRONOLACTONE 23337071142 Active Kortney Mccain Active FLUOXETINE HCL 10 MG ORAL CAPS 1 po qd for depression/anxiety FLUOXETINE HCL 77351769396 Active Harinder Hernandez DO Active VOLTAREN 1 % GEL apply q 6-8 hour to left arm as needed for pain DICLOFENAC SODIUM 82824243455 Active Kortney Mccain Active ALBUTEROL SULFATE 0.083 % NEBU SOLN 1 vial neb q 4hrs for severe asthma. 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 FLUTICASONE PROPIONATE HFA 52458710402 Active Harinder Hernandez DO Active EPIPEN 2-BRUNA 0.3 MG/0.3ML INJ SOAJ 1 INJ NEEDED EPINEPHRINE 58894152847 Active Harinder Hernandez DO Active PREDNISONE 20 MG TAB 1 tab twice daily for 3 day, then one daily for three days PREDNISONE 12191847718 No Longer Active Harinder Hernandez DO Active PREDNISONE 20 MG TAB 1 tablet twice daily for 2 days, then 1 tablet once daily for 2 days PREDNISONE 55225095501 No Longer Active Harinder Hernandez DO Active ASMANEX 120 METERED DOSES 220 MCG/INH INH AEPB 2 puffs orally twice daily MOMETASONE FUROATE 29252502651 Active Jeri Sosa LPN Active TOPIRAMATE 25 MG TABS 1 tab po BID TOPIRAMATE 51243453359 No Longer Active Nettie Newberry APRN Active AMLODIPINE BESYLATE 5 MG ORAL TABS Take 1 tab po daily AMLODIPINE BESYLATE 00817343747 No Longer Active Nettie Newberry APRN Active MECLIZINE HCL 25 MG TAB 1 tablet three times daily for 3 days, then 1/2 tab three times daily for 3 days. MECLIZINE HCL 75426775994 No Longer Active Nettieog Newberry APRN Active AMITRIPTYLINE HCL 25 MG ORAL TABS 1 q hs prn AMITRIPTYLINE HCL 64864220244 No Longer Active Nettie Newberry MAHENDRA Active DILAUDID 2 MG ORAL TABS Take 1/2 tab po every 4 hours as needed for pain 2014 HYDROMORPHONE HCL 98477441304 No Longer Active Nettieog Newberry APRN Active CLOPIDOGREL BISULFATE 75 MG ORAL TABS 1 tab by mouth once daily CLOPIDOGREL BISULFATE 65739720549 Active Harinder Hernandez DO Active ATORVASTATIN CALCIUM 10 MG ORAL TABS 1 at bedtime ATORVASTATIN CALCIUM 98503571327 Active Kortney Mccain Active LOVASTATIN 40 MG ORAL TABS Take 1 tab po every hs LOVASTATIN 75705660999 No Longer Active Harinder Hernandez DO Active PREDNISONE 20 MG TAB 2 tabs daily for 4 days, 1 tab daily for 4 days, 1/2 tab daily for 4 days PREDNISONE 91528425079 No Longer Active Harinder Hernandez DO Active LEVAQUIN 500 MG ORAL TABS Take 1 tab po daily x 8 days LEVOFLOXACIN 37937495321 No Longer Active Harinder Hernandez DO Active VENTOLIN HFA 108 (90 BASE) MCG/ACT AERS 2 -4 puffs four times a day PRN 2013 ALBUTEROL SULFATE 32699889689 No Longer Active Jeri Sosa LPN Active ACEBUTOLOL HCL 200 MG CAPS 1 cap in the morning and 2 caps in the evening ACEBUTOLOL HCL 68301624229 No Longer Active Harinder Hernandez DO Active CEFDINIR 300 MG ORAL CAPS take 1 cap po bid x 10 days CEFDINIR 46648331010 No Longer Active Harinder Hernandez DO Active LOVASTATIN 40 MG TABS 1 pill by mouth nightly for cholesterol LOVASTATIN 58483962950 No Longer Active Nettie King MAHENDRA Active NITROSTAT 0.4 MG SUBL 1 tab under tongueas needed for chest pain ( may take 3 total, 5 min apart, then call 911) NITROGLYCERIN 82355887770 No Longer Active Nettie Newberry APRN Active POTASSIUM CHLORIDE CR 10 MEQ CPCR 1 capsule by mouth daily 02/14 POTASSIUM CHLORIDE 14374877733 No Longer Active Nettieog Newberry APRN Active TESSALON PERLES 100 MG CAP 1 to 2 tablets by mouth 3 times daily as needed for cough BENZONATATE 90429141216 No Longer Active Nettie Newberry APRN Active THEOPHYLLINE ER 200 MG ORAL [id number] Take 1 tab every 12 hours THEOPHYLLINE 93277611891 Active Kortney Mccain Active PREDNISONE 20 MG TAB 2 po qd x 5 days PREDNISONE 31271444640 No Longer Active Jae Morgan MD Active AZITHROMYCIN 250 MG TABS 2 po qd x 1 day, then 1 po qd x 4 days AZITHROMYCIN 41816485983 No Longer Active Jae Morgan MD Active PREDNISONE 20 MG TAB 1 tab twice daily for 3 day, then one daily for three days PREDNISONE 87719038295 No Longer Active Jae Morgan MD Active SINGULAIR 10 MG TABS 1 pill by mouth every evening for breathing. MONTELUKAST SODIUM 65156629346 Active Kortney Mccain Active TYLENOL 325 MG TAB 3 by mouth q4h as needed ACETAMINOPHEN 63240714852 Active Harinder Hernandez DO Active POTASSIUM CHLORIDE ER 10 MEQ CR-TABS take 1 tab po daily POTASSIUM CHLORIDE 44136597064 No Longer Active Harinder Hernandez DO Active PREDNISONE 20 MG TAB 1 TID x 2 days, then 1 BID x 3 days, then 1 Daily x 3 days, then stop PREDNISONE 87842106324 No Longer Active John Montemayor APRN Active LEVAQUIN 500 MG TAB 1 tablet by mouth daily LEVOFLOXACIN 96745723995 No Longer Active Jillina Frashai BRICEÑON Active NEURONTIN 300 MG CAP 1 cap by mouth three times daily for restless leg 06/22 GABAPENTIN 87849592890 No Longer Active Harinder Hernandez DO Active BENZONATATE 100 MG CAPS 1 cap po TID PRN BENZONATATE 90344045693 No Longer Active Harinder Hernandez DO Active MONTELUKAST SODIUM 10 MG TABS 1 tab po in the evening MONTELUKAST SODIUM 81852361403 No Longer Active Harinder Hernandez DO Active MUPIROCIN 2 % OINT apply to affected area BID x 14 days MUPIROCIN 79120027097 No Longer Active Harinder Hernandez DO Active TYLENOL EXTRA STRENGTH 500 MG TABS as needed ACETAMINOPHEN 19757677006 No Longer Active Harinder Hernandez DO Active PREDNISONE 10 MG TABS 1 tab po daily PREDNISONE 48634496865 No Longer Active Harinder Hernandez DO Active PREDNISONE 20 MG TAB 2 tabs daily for 4 days, 1 tab daily for 4 days, 1/2 tab daily for 4 days PREDNISONE 14378785594 No Longer Active Harinder Hernandez DO Active AZITHROMYCIN 250 MG TABS 2 po qd x 1 day, then 1 po qd x 4 days AZITHROMYCIN 79022940227 No Longer Active Harinder Hernandez DO Active PREDNISONE 20 MG TAB 3 tabs today, then 1 tab twice daily for 3 day, then one daily for three days PREDNISONE 95430976619 No Longer Active Harinder Hernandez DO Active NIFEDIAC CC 30 MG [id number] 1 tablet daily for raynaud's syndrome NIFEDIPINE 92266051265 No Longer Active Tawnya Pardo MA Active AMBIEN 10 MG TAB 1/2 tab by mouth at bedtime as needed for sleep ZOLPIDEM TARTRATE 23590471664 Active Kortney Mccain Active CLONAZEPAM 1 MG TABS 1 tablet at bedtime for insomnia and restless legs 09/14 CLONAZEPAM 17869356992 Active Harinder Hernandez DO Active CLONAZEPAM 0.5 MG TABS 1 tab po daily CLONAZEPAM 53313676347 No Longer Active Harinder Shaye David DO Active PREDNISONE 10 MG TAB 1 tablet daily for COPD PREDNISONE 13874683956 Active Harinder Hernandez DO Active PROAIR HFA 108 (90 BASE) MCG/ACT AERS 2 puffs four times a day as needed 2012 ALBUTEROL SULFATE 18482009798 Active Harinder Cr David DO Active FLOVENT HFA 110 MCG/ACT AERO 2 puffs inhaled b.i.d. FLUTICASONE PROPIONATE HFA 72147607434 Active Kortney Mccain Active ACIPHEX 20 MG TBEC 1 tab po daily RABEPRAZOLE SODIUM 95563400300 Active Kaylah Newberry Active CLONAZEPAM 0.5 MG TABS 1 tab po daily CLONAZEPAM 0.5 MG TABS 812469 CLONAZEPAM Inactive PREDNISONE 20 MG TAB 3 tabs today, then 1 tab twice daily for 3 day, then one daily for three days PREDNISONE 20 MG TAB 843626 PREDNISONE Inactive PREDNISONE 20 MG TAB 2 tabs daily for 4 days, 1 tab daily for 4 days, 1/2 tab daily for 4 days PREDNISONE 20 MG TAB 730104 PREDNISONE Inactive PREDNISONE 10 MG TABS 1 tab po daily PREDNISONE 10 MG TABS 949559 PREDNISONE Inactive TYLENOL EXTRA STRENGTH 500 MG TABS as needed TYLENOL EXTRA STRENGTH 500 MG TABS 776338 ACETAMINOPHEN Inactive MUPIROCIN 2 % OINT apply to affected area BID x 14 days MUPIROCIN 2 % OINT 512821 MUPIROCIN Inactive MONTELUKAST SODIUM 10 MG TABS 1 tab po in the evening MONTELUKAST SODIUM 10 MG TABS 20010818 MONTELUKAST SODIUM Inactive BENZONATATE 100 MG CAPS 1 cap po TID PRN BENZONATATE 100 MG CAPS 759867 BENZONATATE Inactive NEURONTIN 300 MG CAP 1 cap by mouth three times daily for restless leg 06/22 NEURONTIN 300 MG CAP 875168 GABAPENTIN Inactive LEVAQUIN 500 MG TAB 1 tablet by mouth daily LEVAQUIN 500 MG TAB 843887 LEVOFLOXACIN Inactive PREDNISONE 20 MG TAB 1 TID x 2 days, then 1 BID x 3 days, then 1 Daily x 3 days, then stop PREDNISONE 20 MG TAB 685707 PREDNISONE Inactive POTASSIUM CHLORIDE ER 10 MEQ CR-TABS take 1 tab po daily POTASSIUM CHLORIDE ER 10 MEQ CR-TABS POTASSIUM CHLORIDE Inactive PREDNISONE 20 MG TAB 1 tab twice daily for 3 day, then one daily for three days PREDNISONE 20 MG TAB 944013 PREDNISONE Inactive TESSALON PERLES 100 MG CAP 1 to 2 tablets by mouth 3 times daily as needed for cough TESSALON PERLES 100 MG CAP 517207 BENZONATATE Inactive POTASSIUM CHLORIDE CR 10 MEQ CPCR 1 capsule by mouth daily 02/14 POTASSIUM CHLORIDE CR 10 MEQ CPCR POTASSIUM CHLORIDE Inactive NITROSTAT 0.4 MG SUBL 1 tab under tongueas needed for chest pain ( may take 3 total, 5 min apart, then call 911) NITROSTAT 0.4 MG SUBL 283143 NITROGLYCERIN Inactive LOVASTATIN 40 MG TABS 1 pill by mouth nightly for cholesterol LOVASTATIN 40 MG TABS 047955 LOVASTATIN Inactive CEFDINIR 300 MG ORAL CAPS take 1 cap po bid x 10 days CEFDINIR 300 MG ORAL CAPS 503882 CEFDINIR Inactive ACEBUTOLOL HCL 200 MG CAPS 1 cap in the morning and 2 caps in the evening ACEBUTOLOL HCL 200 MG CAPS 580733 ACEBUTOLOL HCL Inactive VENTOLIN HFA 108 (90 BASE) MCG/ACT AERS 2 -4 puffs four times a day PRN 2013 VENTOLIN HFA 108 (90 BASE) MCG/ACT AERS ALBUTEROL SULFATE Inactive LEVAQUIN 500 MG ORAL TABS Take 1 tab po daily x 8 days LEVAQUIN 500 MG ORAL TABS 457160 LEVOFLOXACIN Inactive PREDNISONE 20 MG TAB 2 tabs daily for 4 days, 1 tab daily for 4 days, 1/2 tab daily for 4 days PREDNISONE 20 MG TAB 102744 PREDNISONE Inactive LOVASTATIN 40 MG ORAL TABS Take 1 tab po every hs LOVASTATIN 40 MG ORAL TABS 088259 LOVASTATIN Inactive DILAUDID 2 MG ORAL TABS Take 1/2 tab po every 4 hours as needed for pain 2014 DILAUDID 2 MG ORAL TABS 053673 HYDROMORPHONE HCL Inactive AMITRIPTYLINE HCL 25 MG ORAL TABS 1 q hs prn AMITRIPTYLINE HCL 25 MG ORAL TABS 468407 AMITRIPTYLINE HCL Inactive MECLIZINE HCL 25 MG TAB 1 tablet three times daily for 3 days, then 1/2 tab three times daily for 3 days. MECLIZINE HCL 25 MG TAB 101187 MECLIZINE HCL Inactive AMLODIPINE BESYLATE 5 MG ORAL TABS Take 1 tab po daily AMLODIPINE BESYLATE 5 MG ORAL TABS 318532 AMLODIPINE BESYLATE Inactive TOPIRAMATE 25 MG TABS 1 tab po BID TOPIRAMATE 25 MG TABS 880801 TOPIRAMATE Inactive PREDNISONE 20 MG TAB 1 tablet twice daily for 2 days, then 1 tablet once daily for 2 days PREDNISONE 20 MG TAB 984138 PREDNISONE Inactive PREDNISONE 20 MG TAB 1 tab twice daily for 3 day, then one daily for three days PREDNISONE 20 MG TAB 738217 PREDNISONE Inactive NIFEDIPINE ER 30 MG ORAL [id number] 1 daily NIFEDIPINE ER 30 MG ORAL [id number] NIFEDIPINE Inactive AMLODIPINE BESYLATE 5 MG TABS 1 tablet by mouth daily AMLODIPINE BESYLATE 5 MG TABS 259871 AMLODIPINE BESYLATE Inactive LASIX 20 MG TAB 1 tablet by mouth every morning LASIX 20 MG TAB 619244 FUROSEMIDE Inactive POTASSIUM CHLORIDE CR 10 MEQ CPCR 1 capsule BID POTASSIUM CHLORIDE CR 10 MEQ CPCR POTASSIUM CHLORIDE Inactive POTASSIUM CHLORIDE 20 MEQ ORAL PACK 1 tab po q day POTASSIUM CHLORIDE 20 MEQ ORAL PACK 7748970 POTASSIUM CHLORIDE Inactive AZITHROMYCIN 250 MG TABS 2 po qd x 1 day, then 1 po qd x 4 days AZITHROMYCIN 250 MG TABS 929808 AZITHROMYCIN Inactive AZITHROMYCIN 250 MG TABS 2 po qd x 1 day, then 1 po qd x 4 days AZITHROMYCIN 250 MG TABS 251358 AZITHROMYCIN Inactive PREDNISONE 20 MG TAB 2 po qd x 5 days PREDNISONE 20 MG TAB 490681 PREDNISONE Inactive Vital Signs Date Name Value [...] Panel - Chemistry sodium, serum 137 mmol/L 129-161 2340/01/03 potassium, serum 3.4 mmol/L 3.5-5.2 chloride, serum 102 mmol/L 98-107 carbon dioxide, venous blood 29.2 mmol/L 21.0-32.0 blood glucose 87 mg/dL 65-110 calcium, serum 8.5 mg/dL 8.5-10.1 urea nitrogen, blood 8 mg/dL 7-18 creatinine, serum 0.82 mg/dL 0.55-1.30 sodium, serum 140 mmol/L 079-224 5095/07/13 potassium, serum 3.2 mmol/L 3.5-5.2 chloride, serum 103 mmol/L 98-107 carbon dioxide, venous blood 26.9 mmol/L 21.0-32.0 blood glucose 93 mg/dL 65-110 calcium, serum 9.2 mg/dL 8.5-10.1 urea nitrogen, blood 13 mg/dL 7-18 creatinine, serum 0.84 mg/dL 0.60-1.30 sodium, serum 140 mmol/L 355-335 2350/08/21 potassium, serum 3.8 mmol/L 3.5-5.2 chloride, serum [...] ... - Chemistry sodium, serum 141 mmol/L 199-670 8116/08/07 carbon dioxide, venous blood 34.0 mmol/L 21.0-32.0 [...] 1.40 mg/dL 0.00-1.00 cholesterol, serum 192 mg/dL 519-482 1478/10/19 triglyceride, serum, fasting 71 mg/dL 30-200 HDL cholesterol, serum 72 mg/dL 32-60 LDL cholesterol, serum 106 mg/dL 0-130 Lab Report: MICROALB/CREAT W/RATIO - Chemistry albumin/creatinine ratio, urine < 30 mg/g mg/g{creat} 0-29 Lab Report: MICROALB/CREAT W/RATIO - Lab microalbumin, urine 10 0-19 Encounters Code Encounter Date Provider Facility CPT-16545 Level 4 Est. Patient 14:45:25 CDT Harinder Cr [facility] CPT-30329 Level 4 Est. Patient 09:15:13 CDT Harinder Hernandez [facility] CPT-82873 Level 3 Est. Patient 11:51:58 CDT Harinder Cr [facility] CPT-01757 Level 3 Est. Patient 11:30:05 CDT Harinder Hernandez [facility] CPT-70903 Level 4 Est. Patient 10:19:23 CDT Harinder Hernandez [facility] CPT-29843 Level 3 Est. Patient 09:58:58 CDT Harinder Hernandez [facility] CPT-75285 Level 3 Est. Patient 12:37:21 CDT Harinder Hernandez [facility] CPT-97969 Level 3 Est. Patient 18:37:17 CDT Harinder Hernandez [facility] CPT-23738 Level 4 Est. Patient 11:15:54 CDT Nettie Newberry APRN [facility] CPT-52982 Level 3 Est. Patient 16:42:24 CDT Harinder Cr [facility] CPT-11035 Level 3 Est. Patient 15:03:36 CDT Harinder Hernandez [facility] CPT-41383 Level 3 Est. Patient 15:03:20 CDT Harinder Cr [facility] CPT-02846 Level 3 Est. Patient 12:14:34 CDT Harinder Hernandez [facility] CPT-34982 Level 3 Est. Patient 13:47:15 CDT Harinder Hernandez [facility] CPT-96602 Level 3 Est. Patient 14:08:24 CDT Harinder Hernandez [facility] CPT-90299 Level 3 Est. Patient 10:07:15 CDT Harinder Hernandez [facility] CPT-75079 Level 3 Est. Patient 10:06:59 CDT Harinder Cr [facility] CPT-77560 Level 3 Est. Patient 15:53:29 CDT Jae Morgan MD [facility] CPT-70809 Level 3 Est. Patient 17:19:04 CDT Harinder Cr [facility] CPT-16203 Level 3 Est. Patient 11:13:01 CDT Harinder Hernandez [facility] CPT-09496 Level 3 Est. Patient 09:03:58 CDT Harinder Hernandez [facility] CPT-18178 Level 3 Est. Patient 14:46:45 FLYING II INSTRUCTOR Harinder Hernandez [facility] CPT-36846 Level 3 Est. Patient 09:35:49 FLYING II INSTRUCTOR Harinder Hernandez [facility] CPT-87997 Level 3 Est. Patient 09:29:37 FLYING II INSTRUCTOR Harinder Hernandez [facility] CPT-71432 Level 3 Est. Patient 15:51:07 CDT Harinder Hernandez [facility] CPT-53458 Level 3 Est. Patient 18:13:13 CDT Harinder Hernandez [facility] CPT-29903 Level 3 Est. Patient 10:44:19 CDT Harinder Hernandez [facility] CPT-11459 Level 4 Est. Patient 10:07:19 FLYING II INSTRUCTOR Harinder Hernandez [facility] CPT-08974 Level 3 Est. Patient 15:59:32 FLYING II INSTRUCTOR Harinder Cr [facility] Procedures Code Procedure Name Date Entry Date Standard Description CPT-09268 Abd compl w upright - XRAY USE ONLY 14:48:09 CDT 02/18 CPT-19267 Port a cath flush 13:46:05 CDT CPT-57333 Hip, complete, 2-3 views - XRAY USE ONLY 10:28:40 CDT CPT-29713 BMP - LAB USE ONLY 16:45:09 FLYING II INSTRUCTOR CPT-69430 Port a cath flush 12:00:13 FLYING II INSTRUCTOR CPT-TCMM Transitional Care Mgmt-Moderate 11:20:16 FLYING II INSTRUCTOR CPT-86120 First Vx - Ix admin for Medicare patients 17:35:15 CDT CPT-78768 Fluzone Preservative Free Intramuscular Suspension 17:35 :15 CDT CPT-10906 Microalbumin - LAB USE ONLY 11:52:05 CDT CPT-TCMM Transitional Care Mgmt-Moderate 11:33:57 CDT CPT-50358 No Charge Offi Visit 14:11:29 CDT CPT-98923 Magnesium - LAB USE ONLY 10:45:44 CDT CPT-11958 Lipid - LAB USE ONLY 10:45:44 CDT CPT-27487 CBC - LAB USE ONLY 10:45:44 CDT CPT-40399 Venipuncture Draw Fee 10:45:43 CDT CPT-81805 Venipuncture Draw Fee 18:21:27 CDT CPT-JTINJ Asp/Joint Injection 18:38:04 CDT CPT-05961 Immunization Each Additional Inj 17:38:04 CDT CPT-00027 Immunization Single Admin 17:38:04 CDT CPT-88191 Prevnar 13 17:38:04 CDT CPT-31026 Fluzone Quadrivalent preservative free (>=3yrs.) 17:38: 04 CDT CPT-51344 No Charge Offi Visit 11:14:03 CDT CPT-72355 Chest 2V Frontal and Lat 14:00:18 CDT CPT-OV Office Visit 16:10:28 CDT CPT-JTINJ Asp/Joint Injection 09:03:57 CDT CPT-Cryo Cryotherapy 09:35:49 FLYING II INSTRUCTOR CPT-JTINJ Asp/Joint Injection 09:34:45 FLYING II INSTRUCTOR CPT-J2930 Solu Medrol 125 mg (Methyl Prednisolone Sodium Succinate) 20:37:27 CDT CPT-32873 Abx/Therapy Injection 20:37:27 CDT CPT-56806 Port a cath flush 08:15:51 CDT CPT-47710 Port a cath flush 09:54:16 CDT CPT-24050 Port a cath flush 09:38:02 CDT CPT-45265 Port a cath flush 11:00:27 FLYING II INSTRUCTOR
--- OUTSIDE RECORDS SUMMARY | 2017-12-29 00:59 | XMS REPORT | Clinical Summary ---
[...] bacteremia Clostridium difficile colitis 008.45 Resolved Harinder rC David DO Intestinal infection due to clostridium [...] DO Diarrhea Reflux, esophageal 530.81 Active Harinder rC David DO Esophageal reflux Hypokalemia 276.8 Active [...] 1 tablet by mouth days 2-3 PREDNISONE 25210957151 Active Meenu Alejo LPN Active NITROSTAT 0.4 MG SUBLINGUAL TABLET SUBLINGUAL 1 tab SL q5min PRN chest pain NITROGLYCERIN 61554238925 Active Meenu Alejo LPN Active THEOPHYLLINE ER 300 MG ORAL TABLET EXTENDED RELEASE 12 HOUR 1 po BID THEOPHYLLINE 18408131906 Active Kortney Mccain Active POTASSIUM CHLORIDE ER 20 MEQ ORAL TABLET EXTENDED RELEASE 1 po q day POTASSIUM CHLORIDE 02284967276 Active Kortney Mccain Active POTASSIUM CHLORIDE 20 MEQ ORAL PACKET 1 tab po q day POTASSIUM CHLORIDE 31604831818 No Longer Active Kortney Mccain Active POTASSIUM CHLORIDE ER 10 MEQ ORAL CAPSULE EXTENDED RELEASE 1 capsule BID 2016 POTASSIUM CHLORIDE 81991146552 No Longer Active Kortney Mccain Active LASIX 20 MG ORAL TABLET 1 tablet by mouth every morning FUROSEMIDE 69635470417 No Longer Active Kortney Mccain Active SPIRONOLACTONE 25 MG ORAL TABLET 1 tablet by mouth daily SPIRONOLACTONE 92327654179 Active Kortney Mccain Active FLUOXETINE HCL 10 MG ORAL CAPSULE 1 po qd for depression/anxiety FLUOXETINE HCL 65269292402 Active Harinder Hernandez DO Active VOLTAREN 1 % TRANSDERMAL GEL apply q 6-8 hour to left arm as needed for pain DICLOFENAC SODIUM 96829153109 Active Kortney Mccain Active ALBUTEROL SULFATE (2.5 MG/3ML) 0.083% INHALATION NEBULIZATION SOLUTION 1 vial neb q 4hrs for severe asthma. 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 NIFEDIPINE 10867837798 Active Kortney Mccain Active AMLODIPINE BESYLATE 5 MG ORAL TABLET 1 tablet by mouth daily 2016 AMLODIPINE BESYLATE 85043672484 No Longer Active Harinder Hernandez DO Active TOPAMAX 25 MG ORAL TABLET 1 tab po BID TOPIRAMATE 40608157137 Active Kortney Mccain Active FLUTICASONE PROPIONATE 50 MCG/ACT NASAL SUSPENSION 2 sprays per nostril daily PRN Allergies FLUTICASONE PROPIONATE 37045709609 Active Meenu Alejo LPN Active NIFEDIPINE ER 30 MG ORAL TABLET EXTENDED RELEASE 24 HOUR 1 daily NIFEDIPINE 02151602161 No Longer Active Harinder Hernandez DO Active FLOVENT HFA 110 MCG/ACT INHALATION AEROSOL 2 puffs inhaled b.i.d. FLUTICASONE PROPIONATE HFA 10804754388 Active Harinder Hernandez DO Active EPIPEN 2-BRUNA 0.3 MG/0.3ML INJECTION SOLUTION AUTO-INJECTOR 1 INJ NEEDED EPINEPHRINE 19813364832 Active Kortnye Mccain Active PREDNISONE 20 MG ORAL TABLET 1 tab twice daily for 3 day, then one daily for three days PREDNISONE 46855466523 No Longer Active Harinder Hernandez DO Active PREDNISONE 20 MG ORAL TABLET 1 tablet twice daily for 2 days, then 1 tablet once daily for 2 days PREDNISONE 53891827996 No Longer Active Harinder Hernandez DO Active ASMANEX 120 METERED DOSES 220 MCG/INH INHALATION AEROSOL POWDER BREATH ACTIVATED 2 puffs orally twice daily MOMETASONE FUROATE 30027027699 Active Jeri Sosa LPN Active TOPIRAMATE 25 MG ORAL TABLET 1 tab po BID TOPIRAMATE 17566980373 No Longer Active Nettie Newberry APRN Active AMLODIPINE BESYLATE 5 MG ORAL TABLET Take 1 tab po daily AMLODIPINE BESYLATE 66588348919 No Longer Active Nettie Newberry APRN Active MECLIZINE HCL 25 MG ORAL TABLET 1 tablet three times daily for 3 days, then 1/ 2 tab three times daily for 3 days. MECLIZINE HCL 32658331382 No Longer Active Nettie Newberry APRN Active AMITRIPTYLINE HCL 25 MG ORAL TABLET 1 q hs prn AMITRIPTYLINE HCL 16219349462 No Longer Active Nettie Newberry APRN Active DILAUDID 2 MG ORAL TABLET Take 1/2 tab po every 4 hours as needed for pain HYDROMORPHONE HCL 41357941427 No Longer Active Nettie Newberry APRN Active CLOPIDOGREL BISULFATE 75 MG ORAL TABLET 1 tab by mouth once daily CLOPIDOGREL BISULFATE 95600511474 Active Meenu Alejo LPN Active ATORVASTATIN CALCIUM 10 MG ORAL TABLET 1 at bedtime ATORVASTATIN CALCIUM 65000384514 Active Kortney Mccain Active LOVASTATIN 40 MG ORAL TABLET Take 1 tab po every hs LOVASTATIN 21928910143 No Longer Active Harinder Hernandez DO Active PREDNISONE 20 MG ORAL TABLET 2 tabs daily for 4 days, 1 tab daily for 4 days, 1/2 tab daily for 4 days PREDNISONE 60274495811 No Longer Active Harinder Hernandez DO Active LEVAQUIN 500 MG ORAL TABLET Take 1 tab po daily x 8 days LEVOFLOXACIN 57139719590 No Longer Active Harinder Hernandez DO Active VENTOLIN HFA 108 (90 Base) MCG/ACT INHALATION AEROSOL SOLUTION 2 -4 puffs four times a day PRN ALBUTEROL SULFATE 16484076161 No Longer Active Jeri Sosa LPN Active ACEBUTOLOL HCL 200 MG ORAL CAPSULE 1 cap in the morning and 2 caps in the evening ACEBUTOLOL HCL 59753809830 No Longer Active Harinder Hernandez DO Active CEFDINIR 300 MG ORAL CAPSULE take 1 cap po bid x 10 days CEFDINIR 96153858953 No Longer Active Harinder Hernandez DO Active LOVASTATIN 40 MG ORAL TABLET 1 pill by mouth nightly for cholesterol LOVASTATIN 05504124386 No Longer Active Nettie Newberry APRN Active NITROSTAT 0.4 MG SUBLINGUAL TABLET SUBLINGUAL 1 tab under tongueas needed for chest pain ( may take 3 total, 5 min apart, then call 911) NITROGLYCERIN 93892934443 No Longer Active Nettie Newberry APRN Active POTASSIUM CHLORIDE ER 10 MEQ ORAL CAPSULE EXTENDED RELEASE 1 capsule by mouth daily POTASSIUM CHLORIDE 77106375793 No Longer Active Nettie Newberry APRN Active TESSALON PERLES 100 MG ORAL CAPSULE 1 to 2 tablets by mouth 3 times daily as needed for cough BENZONATATE 26295762370 No Longer Active Nettie Newberry APRN Active PREDNISONE 20 MG ORAL TABLET 2 po qd x 5 days PREDNISONE 43737639012 No Longer Active Jae Morgan MD Active AZITHROMYCIN 250 MG ORAL TABLET 2 po qd x 1 day, then 1 po qd x 4 days 12/30 AZITHROMYCIN 30454984361 No Longer Active Jae Morgan MD Active PREDNISONE 20 MG ORAL TABLET 1 tab twice daily for 3 day, then one daily for three days PREDNISONE 43046832591 No Longer Active Jae Morgan MD Active SINGULAIR 10 MG ORAL TABLET 1 pill by mouth every evening for breathing. 2014 MONTELUKAST SODIUM 11364748792 Active Meenu Villarrealnader JOELN Active TYLENOL 325 MG ORAL TABLET 3 by mouth q4h as needed ACETAMINOPHEN 54509811291 Active Harinder Hernandez DO Active POTASSIUM CHLORIDE ER 10 MEQ ORAL TABLET EXTENDED RELEASE take 1 tab po daily POTASSIUM CHLORIDE 87319743089 No Longer Active Harinder Hernandez DO Active PREDNISONE 20 MG ORAL TABLET 1 TID x 2 days, then 1 BID x 3 days, then 1 Daily x 3 days, then stop PREDNISONE 83364811143 No Longer Active Jillina Frazell [employer]ODUCTION GRIP Active LEVAQUIN 500 MG ORAL TABLET 1 tablet by mouth daily LEVOFLOXACIN 28765853510 No Longer Active Jillina Frazell [employer]ODUCTION GRIP Active NEURONTIN 300 MG ORAL CAPSULE 1 cap by mouth three times daily for restless leg GABAPENTIN 78500436513 No Longer Active Harinder Hernandez DO Active BENZONATATE 100 MG ORAL CAPSULE 1 cap po TID PRN BENZONATATE 38509462381 No Longer Active Harinder Hernandez DO Active MONTELUKAST SODIUM 10 MG ORAL TABLET 1 tab po in the evening 2014 MONTELUKAST SODIUM 98263022773 No Longer Active Harinder Hernandez DO Active MUPIROCIN 2 % EXTERNAL OINTMENT apply to affected area BID x 14 days MUPIROCIN 80497689194 No Longer Active Harinder Hernandez DO Active TYLENOL EXTRA STRENGTH 500 MG ORAL TABLET as needed ACETAMINOPHEN 87276511096 No Longer Active Harinder Hernandez DO Active PREDNISONE 10 MG ORAL TABLET 1 tab po daily PREDNISONE 72132096152 No Longer Active Harinder Hernandez DO Active PREDNISONE 20 MG ORAL TABLET 2 tabs daily for 4 days, 1 tab daily for 4 days, 1/2 tab daily for 4 days PREDNISONE 38093389009 No Longer Active Harinder Hernandez DO Active AZITHROMYCIN 250 MG ORAL TABLET 2 po qd x 1 day, then 1 po qd x 4 days 04/06 AZITHROMYCIN 46648020007 No Longer Active Harinder Hernandez DO Active PREDNISONE 20 MG ORAL TABLET 3 tabs today, then 1 tab twice daily for 3 day, then one daily for three days PREDNISONE 04657479089 No Longer Active Harinder Hernandez DO Active NIFEDIAC CC 30 MG ORAL TABLET EXTENDED RELEASE 24 HOUR 1 tablet daily for raynaud's syndrome NIFEDIPINE 87697503028 No Longer Active Tawnya Pardo MA Active AMBIEN 10 MG ORAL TABLET 1/2 tab by mouth at bedtime as needed for sleep 2013 ZOLPIDEM TARTRATE 57987535477 Active Meenu Alejo LPN Active CLONAZEPAM 1 MG ORAL TABLET 1 tablet at bedtime for insomnia and restless legs CLONAZEPAM 45981793108 Active Harinder Hernandez DO Active CLONAZEPAM 0.5 MG ORAL TABLET 1 tab po daily CLONAZEPAM 12462754773 No Longer Active Harinder Hernandez DO Active PREDNISONE 10 MG ORAL TABLET 1 tablet daily for COPD PREDNISONE 21769216166 Active Kortney Mccain Active PROAIR HFA 108 (90 Base) MCG/ACT INHALATION AEROSOL SOLUTION 2 puffs four times a day as needed ALBUTEROL SULFATE 34283442533 Active Harinder Hernandez DO Active FLOVENT HFA 110 MCG/ACT INHALATION AEROSOL 2 puffs inhaled b.i.d. FLUTICASONE PROPIONATE HFA 60289722913 Active Kortney Mccain Active ACIPHEX 20 MG ORAL TABLET DELAYED RELEASE 1 tab po daily RABEPRAZOLE SODIUM 20125271116 Active Kaylah Newberry Active CLONAZEPAM 0.5 MG ORAL TABLET 1 tab po daily CLONAZEPAM 0.5 MG ORAL TABLET 360983 CLONAZEPAM Inactive PREDNISONE 20 MG ORAL TABLET 3 tabs today, then 1 tab twice daily for 3 day, then one daily for three days PREDNISONE 20 MG ORAL TABLET 721313 PREDNISONE Inactive PREDNISONE 20 MG ORAL TABLET 2 tabs daily for 4 days, 1 tab daily for 4 days, 1/2 tab daily for 4 days PREDNISONE 20 MG ORAL TABLET 527521 PREDNISONE Inactive PREDNISONE 10 MG ORAL TABLET 1 tab po daily PREDNISONE 10 MG ORAL TABLET 174434 PREDNISONE Inactive TYLENOL EXTRA STRENGTH 500 MG ORAL TABLET as needed TYLENOL EXTRA STRENGTH 500 MG ORAL TABLET 028320 ACETAMINOPHEN Inactive MUPIROCIN 2 % EXTERNAL OINTMENT apply to affected area BID x 14 days MUPIROCIN 2 % EXTERNAL OINTMENT 166262 MUPIROCIN Inactive MONTELUKAST SODIUM 10 MG ORAL TABLET 1 tab po in the evening 2014 MONTELUKAST SODIUM 10 MG ORAL TABLET 719050 MONTELUKAST SODIUM Inactive BENZONATATE 100 MG ORAL CAPSULE 1 cap po TID PRN BENZONATATE 100 MG ORAL CAPSULE 660614 BENZONATATE Inactive NEURONTIN 300 MG ORAL CAPSULE 1 cap by mouth three times daily for restless leg NEURONTIN 300 MG ORAL CAPSULE 015651 GABAPENTIN Inactive LEVAQUIN 500 MG ORAL TABLET 1 tablet by mouth daily LEVAQUIN 500 MG ORAL TABLET 593785 LEVOFLOXACIN Inactive PREDNISONE 20 MG ORAL TABLET 1 TID x 2 days, then 1 BID x 3 days, then 1 Daily x 3 days, then stop PREDNISONE 20 MG ORAL TABLET 045483 PREDNISONE Inactive POTASSIUM CHLORIDE ER 10 MEQ ORAL TABLET EXTENDED RELEASE take 1 tab po daily POTASSIUM CHLORIDE ER 10 MEQ ORAL TABLET EXTENDED RELEASE POTASSIUM CHLORIDE Inactive PREDNISONE 20 MG ORAL TABLET 1 tab twice daily for 3 day, then one daily for three days PREDNISONE 20 MG ORAL TABLET 039898 PREDNISONE Inactive TESSALON PERLES 100 MG ORAL CAPSULE 1 to 2 tablets by mouth 3 times daily as needed for cough TESSALON PERLES 100 MG ORAL CAPSULE 345850 BENZONATATE Inactive POTASSIUM CHLORIDE ER 10 MEQ ORAL CAPSULE EXTENDED RELEASE 1 capsule by mouth daily POTASSIUM CHLORIDE ER 10 MEQ ORAL CAPSULE EXTENDED RELEASE POTASSIUM CHLORIDE Inactive NITROSTAT 0.4 MG SUBLINGUAL TABLET SUBLINGUAL 1 tab under tongueas needed for chest pain ( may take 3 total, 5 min apart, then call 911) NITROSTAT 0.4 MG SUBLINGUAL TABLET SUBLINGUAL 779866 NITROGLYCERIN Inactive LOVASTATIN 40 MG ORAL TABLET 1 pill by mouth nightly for cholesterol LOVASTATIN 40 MG ORAL TABLET 836407 LOVASTATIN Inactive CEFDINIR 300 MG ORAL CAPSULE take 1 cap po bid x 10 days CEFDINIR 300 MG ORAL CAPSULE 308677 CEFDINIR Inactive ACEBUTOLOL HCL 200 MG ORAL CAPSULE 1 cap in the morning and 2 caps in the evening ACEBUTOLOL HCL 200 MG ORAL CAPSULE 628733 ACEBUTOLOL HCL Inactive VENTOLIN HFA 108 (90 Base) MCG/ACT INHALATION AEROSOL SOLUTION 2 -4 puffs four times a day PRN VENTOLIN HFA 108 (90 Base) MCG/ ACT INHALATION AEROSOL SOLUTION ALBUTEROL SULFATE Inactive LEVAQUIN 500 MG ORAL TABLET Take 1 tab po daily x 8 days LEVAQUIN 500 MG ORAL TABLET 055921 LEVOFLOXACIN Inactive PREDNISONE 20 MG ORAL TABLET 2 tabs daily for 4 days, 1 tab daily for 4 days, 1/2 tab daily for 4 days PREDNISONE 20 MG ORAL TABLET 703897 PREDNISONE Inactive LOVASTATIN 40 MG ORAL TABLET Take 1 tab po every hs LOVASTATIN 40 MG ORAL TABLET 411434 LOVASTATIN Inactive DILAUDID 2 MG ORAL TABLET Take 1/2 tab po every 4 hours as needed for pain DILAUDID 2 MG ORAL TABLET 690034 HYDROMORPHONE HCL Inactive AMITRIPTYLINE HCL 25 MG ORAL TABLET 1 q hs prn AMITRIPTYLINE HCL 25 MG ORAL TABLET 711070 AMITRIPTYLINE HCL Inactive MECLIZINE HCL 25 MG ORAL TABLET 1 tablet three times daily for 3 days, then 1/ 2 tab three times daily for 3 days. MECLIZINE HCL 25 MG ORAL TABLET 189256 MECLIZINE HCL Inactive AMLODIPINE BESYLATE 5 MG ORAL TABLET Take 1 tab po daily AMLODIPINE BESYLATE 5 MG ORAL TABLET 312705 AMLODIPINE BESYLATE Inactive TOPIRAMATE 25 MG ORAL TABLET 1 tab po BID TOPIRAMATE 25 MG ORAL TABLET 947239 TOPIRAMATE Inactive PREDNISONE 20 MG ORAL TABLET 1 tablet twice daily for 2 days, then 1 tablet once daily for 2 days PREDNISONE 20 MG ORAL TABLET 209987 PREDNISONE Inactive PREDNISONE 20 MG ORAL TABLET 1 tab twice daily for 3 day, then one daily for three days PREDNISONE 20 MG ORAL TABLET 936102 PREDNISONE Inactive NIFEDIPINE ER 30 MG ORAL TABLET EXTENDED RELEASE 24 HOUR 1 daily NIFEDIPINE ER 30 MG ORAL TABLET EXTENDED RELEASE 24 HOUR NIFEDIPINE Inactive AMLODIPINE BESYLATE 5 MG ORAL TABLET 1 tablet by mouth daily 2016 AMLODIPINE BESYLATE 5 MG ORAL TABLET 937504 AMLODIPINE BESYLATE Inactive LASIX 20 MG ORAL TABLET 1 tablet by mouth every morning LASIX 20 MG ORAL TABLET 354422 FUROSEMIDE Inactive POTASSIUM CHLORIDE ER 10 MEQ ORAL CAPSULE EXTENDED RELEASE 1 capsule BID 2016 POTASSIUM CHLORIDE ER 10 MEQ ORAL CAPSULE EXTENDED RELEASE POTASSIUM CHLORIDE Inactive POTASSIUM CHLORIDE 20 MEQ ORAL PACKET 1 tab po q day POTASSIUM CHLORIDE 20 MEQ ORAL PACKET 8948552 POTASSIUM CHLORIDE Inactive AZITHROMYCIN 250 MG ORAL TABLET 2 po qd x 1 day, then 1 po qd x 4 days 04/06 AZITHROMYCIN 250 MG ORAL TABLET 271080 AZITHROMYCIN Inactive AZITHROMYCIN 250 MG ORAL TABLET 2 po qd x 1 day, then 1 po qd x 4 days 12/30 AZITHROMYCIN 250 MG ORAL TABLET 632830 AZITHROMYCIN Inactive PREDNISONE 20 MG ORAL TABLET 2 po qd x 5 days PREDNISONE 20 MG ORAL TABLET 452235 PREDNISONE Inactive Vital Signs Date Name Value [...] Panel - Chemistry sodium, serum 140 mmol/L 675-510 0619/07/13 potassium, serum 3.2 mmol/L 3.5-5.2 chloride, serum 103 mmol/L 98-107 carbon dioxide, venous blood 26.9 mmol/L 21.0-32.0 blood glucose 93 mg/dL 65-110 calcium, serum 9.2 mg/dL 8.5-10.1 urea nitrogen, blood 13 mg/dL 7-18 creatinine, serum 0.84 mg/dL 0.60-1.30 sodium, serum 140 mmol/L 390-136 5096/08/21 potassium, serum 3.8 mmol/L 3.5-5.2 chloride, serum [...] ... - Chemistry sodium, serum 141 mmol/L 443-106 6187/08/07 carbon dioxide, venous blood 34.0 mmol/L 21.0-32.0 [...] 1.40 mg/dL 0.00-1.00 cholesterol, serum 192 mg/dL 324-138 6115/10/19 triglyceride, serum, fasting 71 mg/dL 30-200 HDL cholesterol, serum 72 mg/dL 32-60 LDL cholesterol, serum 106 mg/dL 0-130 Lab Report: THEOPHYLLINE - Toxicology theophylline level, serum 3.1 ug/mL 10.0-20.0 Encounters Code Encounter Date Provider Facility CPT-68249 Level 3 Est. Patient 15:14:45 CYBER OPERATOR Harinder Cr [facility] CPT-63330 Level 4 Est. Patient 14:45:25 CDT [facility] CPT-03818 Level 4 Est. Patient 09:15:13 CDT [facility] CPT-02921 Level 3 Est. Patient 11:51:58 CDT Harinder Hernandez [facility] CPT-31369 Level 3 Est. Patient 11:30:05 CDT Harinder Hernandez [facility] CPT-72374 Level 4 Est. Patient 10:19:23 CDT Harinder Hernandez [facility] CPT-08211 Level 3 Est. Patient 09:58:58 CDT Harinder Hernandez [facility] CPT-78863 Level 3 Est. Patient 12:37:21 CDT Harinder Cr [facility] CPT-43518 Level 3 Est. Patient 18:37:17 CDT Harinder Hernandez [facility] CPT-92465 Level 4 Est. Patient 11:15:54 CDT Nettie Newberry APRN [facility] CPT-72854 Level 3 Est. Patient 16:42:24 CDT Harinder Cr [facility] CPT-88415 Level 3 Est. Patient 15:03:36 CDT Harinder Cr [facility] CPT-09628 Level 3 Est. Patient 15:03:20 CDT Harinder Hernandez [facility] CPT-25083 Level 3 Est. Patient 12:14:34 CDT Harinder Hernandez [facility] CPT-67285 Level 3 Est. Patient 13:47:15 CDT Harinder Hernandez [facility] CPT-46729 Level 3 Est. Patient 14:08:24 CDT Harinder Hernandez [facility] CPT-43301 Level 3 Est. Patient 10:07:15 CDT Harinder Cr [facility] CPT-16380 Level 3 Est. Patient 10:06:59 CDT Harinder Cr [facility] CPT-61362 Level 3 Est. Patient 15:53:29 CDT Jae Morgan MD [facility] CPT-26530 Level 3 Est. Patient 17:19:04 CDT Harinder Hernandez [facility] CPT-58755 Level 3 Est. Patient 11:13:01 CDT Harinder Hernandez [facility] CPT-04504 Level 3 Est. Patient 09:03:58 CDT Harinder Hernandez [facility] CPT-22880 Level 3 Est. Patient 14:46:45 CYBER OPERATOR Harinder Hernandez [facility] CPT-81287 Level 3 Est. Patient 09:35:49 CYBER OPERATOR Harinder Hernandez [facility] CPT-88282 Level 3 Est. Patient 09:29:37 CYBER OPERATOR Harinder Hernandez [facility] CPT-81455 Level 3 Est. Patient 15:51:07 CDT Harinder Hernandez [facility] CPT-58991 Level 3 Est. Patient 18:13:13 CDT Harinder Hernandez [facility] CPT-42704 Level 3 Est. Patient 10:44:19 CDT Harinder Cr [facility] CPT-25917 Level 4 Est. Patient 10:07:19 CYBER OPERATOR Harinder Hernandez [facility] CPT-73380 Level 3 Est. Patient 15:59:32 CYBER OPERATOR Harinder Cr [facility] Procedures Code Procedure Name Date Entry Date Standard Description CPT-91394 Abd compl w upright - XRAY USE ONLY 14:48:09 CDT 02/18 CPT-62318 Port a cath flush 13:46:05 CDT CPT-27018 Hip, complete, 2-3 views - XRAY USE ONLY 10:28:40 CDT CPT-36648 BMP - LAB USE ONLY 16:45:09 CYBER OPERATOR CPT-44523 Port a cath flush 12:00:13 CYBER OPERATOR CPT-TCMM Transitional Care Mgmt-Moderate 11:20:16 CYBER OPERATOR CPT-13419 First Vx - Ix admin for Medicare patients 17:35:15 CDT CPT-44522 Fluzone Preservative Free Intramuscular Suspension 17:35 :15 CDT CPT-47818 Microalbumin - LAB USE ONLY 11:52:05 CDT CPT-TCMM Transitional Care Mgmt-Moderate 11:33:57 CDT CPT-97600 No Charge Offi Visit 14:11:29 CDT CPT-21732 Magnesium - LAB USE ONLY 10:45:44 CDT CPT-20277 Lipid - LAB USE ONLY 10:45:44 CDT CPT-33046 CBC - LAB USE ONLY 10:45:44 CDT CPT-56167 Venipuncture Draw Fee 10:45:43 CDT CPT-10439 Venipuncture Draw Fee 18:21:27 CDT CPT-JTINJ Asp/Joint Injection 18:38:04 CDT CPT-85840 Immunization Each Additional Inj 17:38:04 CDT CPT-41502 Immunization Single Admin 17:38:04 CDT CPT-70785 Prevnar 13 17:38:04 CDT CPT-33509 Fluzone Quadrivalent preservative free (>=3yrs.) 17:38: 04 CDT CPT-04999 No Charge Offi Visit 11:14:03 CDT CPT-28761 Chest 2V Frontal and Lat 14:00:18 CDT CPT-OV Office Visit 16:10:28 CDT CPT-JTINJ Asp/Joint Injection 09:03:57 CDT CPT-Cryo Cryotherapy 09:35:49 CYBER OPERATOR CPT-JTINJ Asp/Joint Injection 09:34:45 CYBER OPERATOR CPT-J2930 Solu Medrol 125 mg (Methyl Prednisolone Sodium Succinate) 20:37:27 CDT CPT-91230 Abx/Therapy Injection 20:37:27 CDT CPT-19337 Port a cath flush 08:15:51 CDT CPT-61701 Port a cath flush 09:54:16 CDT CPT-50840 Port a cath flush 09:38:02 CDT CPT-51206 Port a cath flush 11:00:27 CYBER OPERATOR
--- OUTSIDE RECORDS SUMMARY | 2017-12-29 01:00 | XMS REPORT | Clinical Summary ---
Author Author Admin, QIE Organization [facility] Address Unknown Phone Unavailable Allergies, [...] adjustment of vascular catheter V58.81 Resolved Harinder eHrnandez DO Encounter for fitting and adjustment of [...] adjustment of vascular catheter ICD-V58.81 Inactive Harinder Hernandze DO Back pain, lumbar ICD-724.2 Inactive Harinder [...] RELEASE 12 HOUR 1 po BID THEOPHYLLINE [id number] Active Kortney Mccain Active POTASSIUM CHLORIDE ER 20 MEQ ORAL CR-TABS 1 po q day POTASSIUM CHLORIDE 80006617220 Active Kortney Mccian Active POTASSIUM CHLORIDE 20 MEQ ORAL PACK 1 tab po q day POTASSIUM CHLORIDE 64121324474 No Longer Active Kortney Mccain Active POTASSIUM CHLORIDE CR 10 MEQ CPCR 1 capsule BID POTASSIUM CHLORIDE 32399093744 No Longer Active Kortney Mccain Active LASIX 20 MG TAB 1 tablet by mouth every morning FUROSEMIDE 33752510297 No Longer Active Kortney Mccain Active SPIRONOLACTONE 25 MG TAB 1 tablet by mouth daily SPIRONOLACTONE 49412915705 Active Kortney Mccain Active FLUOXETINE HCL 10 MG ORAL CAPS 1 po qd for depression/anxiety FLUOXETINE HCL 08276627083 Active Harinder Hernandez DO Active VOLTAREN 1 % GEL apply q 6-8 hour to left arm as needed for pain DICLOFENAC SODIUM 54781573238 Active Kortney Mccain Active ALBUTEROL SULFATE 0.083 % NEBU SOLN 1 vial neb q 4hrs for severe asthma. 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 FLUTICASONE PROPIONATE HFA 20342812109 Active Harinder Hernandez DO Active EPIPEN 2-BRUNA 0.3 MG/0.3ML INJ SOAJ 1 INJ NEEDED EPINEPHRINE 67640123588 Active Harinder Hernandez DO Active PREDNISONE 20 MG TAB 1 tab twice daily for 3 day, then one daily for three days PREDNISONE 53517367146 No Longer Active Harinder Hernandez DO Active PREDNISONE 20 MG TAB 1 tablet twice daily for 2 days, then 1 tablet once daily for 2 days PREDNISONE 48291596225 No Longer Active Harinder Hernandez DO Active ASMANEX 120 METERED DOSES 220 MCG/INH INH AEPB 2 puffs orally twice daily MOMETASONE FUROATE 43740036726 Active Jeri Sosa LPN Active TOPIRAMATE 25 MG TABS 1 tab po BID TOPIRAMATE 62436020497 No Longer Active Nettie Newberry MAHENDRA Active AMLODIPINE BESYLATE 5 MG ORAL TABS Take 1 tab po daily AMLODIPINE BESYLATE 55594670804 No Longer Active Nettie Newberry MAHENDRA Active MECLIZINE HCL 25 MG TAB 1 tablet three times daily for 3 days, then 1/2 tab three times daily for 3 days. MECLIZINE HCL 29165590257 No Longer Active Nettie Newberry MAHENDRA Active AMITRIPTYLINE HCL 25 MG ORAL TABS 1 q hs prn AMITRIPTYLINE HCL 21583746506 No Longer Active Nettie Newberry MAHENDRA Active DILAUDID 2 MG ORAL TABS Take 1/2 tab po every 4 hours as needed for pain 2014 HYDROMORPHONE HCL 78620845329 No Longer Active Nettie Newberry MAHENDRA Active CLOPIDOGREL BISULFATE 75 MG ORAL TABS 1 tab by mouth once daily CLOPIDOGREL BISULFATE 98844431934 Active Harinder Hernandez DO Active ATORVASTATIN CALCIUM 10 MG ORAL TABS 1 at bedtime ATORVASTATIN CALCIUM 38106679727 Active Kortney Mccain Active LOVASTATIN 40 MG ORAL TABS Take 1 tab po every hs LOVASTATIN 82857434178 No Longer Active Harinder Hernandez DO Active PREDNISONE 20 MG TAB 2 tabs daily for 4 days, 1 tab daily for 4 days, 1/2 tab daily for 4 days PREDNISONE 79025879803 No Longer Active Harinder Hernandez DO Active LEVAQUIN 500 MG ORAL TABS Take 1 tab po daily x 8 days LEVOFLOXACIN 19867889082 No Longer Active Harinder Hernandez DO Active VENTOLIN HFA 108 (90 BASE) MCG/ACT AERS 2 -4 puffs four times a day PRN 2013 ALBUTEROL SULFATE 33136121520 No Longer Active Jeri Sosa LPN Active ACEBUTOLOL HCL 200 MG CAPS 1 cap in the morning and 2 caps in the evening ACEBUTOLOL HCL 31777639273 No Longer Active Harinder Hernandez DO Active CEFDINIR 300 MG ORAL CAPS take 1 cap po bid x 10 days CEFDINIR 88240679786 No Longer Active Harinder Hernandez DO Active LOVASTATIN 40 MG TABS 1 pill by mouth nightly for cholesterol LOVASTATIN 82537256667 No Longer Active Nettie Newberry APRN Active NITROSTAT 0.4 MG SUBL 1 tab under tongueas needed for chest pain ( may take 3 total, 5 min apart, then call 911) NITROGLYCERIN 37148568859 No Longer Active Nettie Newberry APRN Active POTASSIUM CHLORIDE CR 10 MEQ CPCR 1 capsule by mouth daily 02/14 POTASSIUM CHLORIDE 17639473225 No Longer Active Nettie Newberry APRN Active TESSALON PERLES 100 MG CAP 1 to 2 tablets by mouth 3 times daily as needed for cough BENZONATATE 04225848545 No Longer Active Nettie Newberry APRN Active PREDNISONE 20 MG TAB 2 po qd x 5 days PREDNISONE 31357909569 No Longer Active Jae Morgan MD Active AZITHROMYCIN 250 MG TABS 2 po qd x 1 day, then 1 po qd x 4 days AZITHROMYCIN 83997299386 No Longer Active Jae Morgan MD Active PREDNISONE 20 MG TAB 1 tab twice daily for 3 day, then one daily for three days PREDNISONE 21531497109 No Longer Active Jae Morgan MD Active SINGULAIR 10 MG TABS 1 pill by mouth every evening for breathing. MONTELUKAST SODIUM 19508948794 Active Kortney Mccain Active TYLENOL 325 MG TAB 3 by mouth q4h as needed ACETAMINOPHEN 68479935296 Active Harinder Hernandez DO Active POTASSIUM CHLORIDE ER 10 MEQ CR-TABS take 1 tab po daily POTASSIUM CHLORIDE 35020760729 No Longer Active Harinder Hernandez DO Active PREDNISONE 20 MG TAB 1 TID x 2 days, then 1 BID x 3 days, then 1 Daily x 3 days, then stop PREDNISONE 17726737444 No Longer Active John Montemayor APRN Active LEVAQUIN 500 MG TAB 1 tablet by mouth daily LEVOFLOXACIN 58282262185 No Longer Active Derrickmerikvng Sim MCCRAY Active NEURONTIN 300 MG CAP 1 cap by mouth three times daily for restless leg 06/22 GABAPENTIN 36603266816 No Longer Active Harinder Hernandez DO Active BENZONATATE 100 MG CAPS 1 cap po TID PRN BENZONATATE 78108083012 No Longer Active Harinder Hernandez DO Active MONTELUKAST SODIUM 10 MG TABS 1 tab po in the evening MONTELUKAST SODIUM 79678966258 No Longer Active Harinder Hernandez DO Active MUPIROCIN 2 % OINT apply to affected area BID x 14 days MUPIROCIN 70264742606 No Longer Active Harinder Hernandez DO Active TYLENOL EXTRA STRENGTH 500 MG TABS as needed ACETAMINOPHEN 64671904791 No Longer Active Harinder Hernandez DO Active PREDNISONE 10 MG TABS 1 tab po daily PREDNISONE 34466648733 No Longer Active Harinder Hernandez DO Active PREDNISONE 20 MG TAB 2 tabs daily for 4 days, 1 tab daily for 4 days, 1/2 tab daily for 4 days PREDNISONE 20792541756 No Longer Active Harinder Hernandez DO Active AZITHROMYCIN 250 MG TABS 2 po qd x 1 day, then 1 po qd x 4 days AZITHROMYCIN 42607714634 No Longer Active Harinder Hernandez DO Active PREDNISONE 20 MG TAB 3 tabs today, then 1 tab twice daily for 3 day, then one daily for three days PREDNISONE 13592999783 No Longer Active Harinder Hernandez DO Active NIFEDIAC CC 30 MG [id number] 1 tablet daily for raynaud's syndrome NIFEDIPINE 94428917262 No Longer Active Tawnya Pardo MA Active AMBIEN 10 MG TAB 1/2 tab by mouth at bedtime as needed for sleep ZOLPIDEM TARTRATE 55267850178 Active Kortney Mccain Active CLONAZEPAM 1 MG TABS 1 tablet at bedtime for insomnia and restless legs 09/14 CLONAZEPAM 72767742408 Active Harinder Hernandez DO Active CLONAZEPAM 0.5 MG TABS 1 tab po daily CLONAZEPAM 81973313266 No Longer Active Harinder Hernandez DO Active PREDNISONE 10 MG TAB 1 tablet daily for COPD PREDNISONE 41637184951 Active Kortney Mccain Active PROAIR HFA 108 (90 BASE) MCG/ACT AERS 2 puffs four times a day as needed 2012 ALBUTEROL SULFATE 36904464594 Active Harinder Hernandez DO Active FLOVENT HFA 110 MCG/ACT AERO 2 puffs inhaled b.i.d. FLUTICASONE PROPIONATE HFA 64747002960 Active Korteny Mccain Active ACIPHEX 20 MG TBEC 1 tab po daily RABEPRAZOLE SODIUM 68400021371 Active Kaylha Newberry Active CLONAZEPAM 0.5 MG TABS 1 tab po daily CLONAZEPAM 0.5 MG TABS 797870 CLONAZEPAM Inactive PREDNISONE 20 MG TAB 3 tabs today, then 1 tab twice daily for 3 day, then one daily for three days PREDNISONE 20 MG TAB 792291 PREDNISONE Inactive PREDNISONE 20 MG TAB 2 tabs daily for 4 days, 1 tab daily for 4 days, 1/2 tab daily for 4 days PREDNISONE 20 MG TAB 052452 PREDNISONE Inactive PREDNISONE 10 MG TABS 1 tab po daily PREDNISONE 10 MG TABS 849974 PREDNISONE Inactive TYLENOL EXTRA STRENGTH 500 MG TABS as needed TYLENOL EXTRA STRENGTH 500 MG TABS 724047 ACETAMINOPHEN Inactive MUPIROCIN 2 % OINT apply to affected area BID x 14 days MUPIROCIN 2 % OINT 634031 MUPIROCIN Inactive MONTELUKAST SODIUM 10 MG TABS 1 tab po in the evening MONTELUKAST SODIUM 10 MG TABS 20010818 MONTELUKAST SODIUM Inactive BENZONATATE 100 MG CAPS 1 cap po TID PRN BENZONATATE 100 MG CAPS 195659 BENZONATATE Inactive NEURONTIN 300 MG CAP 1 cap by mouth three times daily for restless leg 06/22 NEURONTIN 300 MG CAP 919456 GABAPENTIN Inactive LEVAQUIN 500 MG TAB 1 tablet by mouth daily LEVAQUIN 500 MG TAB 473714 LEVOFLOXACIN Inactive PREDNISONE 20 MG TAB 1 TID x 2 days, then 1 BID x 3 days, then 1 Daily x 3 days, then stop PREDNISONE 20 MG TAB 453455 PREDNISONE Inactive POTASSIUM CHLORIDE ER 10 MEQ CR-TABS take 1 tab po daily POTASSIUM CHLORIDE ER 10 MEQ CR-TABS POTASSIUM CHLORIDE Inactive PREDNISONE 20 MG TAB 1 tab twice daily for 3 day, then one daily for three days PREDNISONE 20 MG TAB 420635 PREDNISONE Inactive TESSALON PERLES 100 MG CAP 1 to 2 tablets by mouth 3 times daily as needed for cough TESSALON PERLES 100 MG CAP 519830 BENZONATATE Inactive POTASSIUM CHLORIDE CR 10 MEQ CPCR 1 capsule by mouth daily 02/14 POTASSIUM CHLORIDE CR 10 MEQ CPCR POTASSIUM CHLORIDE Inactive NITROSTAT 0.4 MG SUBL 1 tab under tongueas needed for chest pain ( may take 3 total, 5 min apart, then call 911) NITROSTAT 0.4 MG SUBL 823934 NITROGLYCERIN Inactive LOVASTATIN 40 MG TABS 1 pill by mouth nightly for cholesterol LOVASTATIN 40 MG TABS 513316 LOVASTATIN Inactive CEFDINIR 300 MG ORAL CAPS take 1 cap po bid x 10 days CEFDINIR 300 MG ORAL CAPS 763612 CEFDINIR Inactive ACEBUTOLOL HCL 200 MG CAPS 1 cap in the morning and 2 caps in the evening ACEBUTOLOL HCL 200 MG CAPS 620749 ACEBUTOLOL HCL Inactive VENTOLIN HFA 108 (90 BASE) MCG/ACT AERS 2 -4 puffs four times a day PRN 2013 VENTOLIN HFA 108 (90 BASE) MCG/ACT AERS ALBUTEROL SULFATE Inactive LEVAQUIN 500 MG ORAL TABS Take 1 tab po daily x 8 days LEVAQUIN 500 MG ORAL TABS 952020 LEVOFLOXACIN Inactive PREDNISONE 20 MG TAB 2 tabs daily for 4 days, 1 tab daily for 4 days, 1/2 tab daily for 4 days PREDNISONE 20 MG TAB 006497 PREDNISONE Inactive LOVASTATIN 40 MG ORAL TABS Take 1 tab po every hs LOVASTATIN 40 MG ORAL TABS 905862 LOVASTATIN Inactive DILAUDID 2 MG ORAL TABS Take 1/2 tab po every 4 hours as needed for pain 2014 DILAUDID 2 MG ORAL TABS 491788 HYDROMORPHONE HCL Inactive AMITRIPTYLINE HCL 25 MG ORAL TABS 1 q hs prn AMITRIPTYLINE HCL 25 MG ORAL TABS 719820 AMITRIPTYLINE HCL Inactive MECLIZINE HCL 25 MG TAB 1 tablet three times daily for 3 days, then 1/2 tab three times daily for 3 days. MECLIZINE HCL 25 MG TAB 321936 MECLIZINE HCL Inactive AMLODIPINE BESYLATE 5 MG ORAL TABS Take 1 tab po daily AMLODIPINE BESYLATE 5 MG ORAL TABS 777294 AMLODIPINE BESYLATE Inactive TOPIRAMATE 25 MG TABS 1 tab po BID TOPIRAMATE 25 MG TABS 069315 TOPIRAMATE Inactive PREDNISONE 20 MG TAB 1 tablet twice daily for 2 days, then 1 tablet once daily for 2 days PREDNISONE 20 MG TAB 465780 PREDNISONE Inactive PREDNISONE 20 MG TAB 1 tab twice daily for 3 day, then one daily for three days PREDNISONE 20 MG TAB 622747 PREDNISONE Inactive NIFEDIPINE ER 30 MG ORAL [id number] 1 daily NIFEDIPINE ER 30 MG ORAL [id number] NIFEDIPINE Inactive AMLODIPINE BESYLATE 5 MG TABS 1 tablet by mouth daily AMLODIPINE BESYLATE 5 MG TABS 518193 AMLODIPINE BESYLATE Inactive LASIX 20 MG TAB 1 tablet by mouth every morning LASIX 20 MG TAB 724156 FUROSEMIDE Inactive POTASSIUM CHLORIDE CR 10 MEQ CPCR 1 capsule BID POTASSIUM CHLORIDE CR 10 MEQ CPCR POTASSIUM CHLORIDE Inactive POTASSIUM CHLORIDE 20 MEQ ORAL PACK 1 tab po q day POTASSIUM CHLORIDE 20 MEQ ORAL PACK 7812009 POTASSIUM CHLORIDE Inactive AZITHROMYCIN 250 MG TABS 2 po qd x 1 day, then 1 po qd x 4 days AZITHROMYCIN 250 MG TABS 848445 AZITHROMYCIN Inactive AZITHROMYCIN 250 MG TABS 2 po qd x 1 day, then 1 po qd x 4 days AZITHROMYCIN 250 MG TABS 395559 AZITHROMYCIN Inactive PREDNISONE 20 MG TAB 2 po qd x 5 days PREDNISONE 20 MG TAB 146627 PREDNISONE Inactive Vital Signs Date Name Value [...] Panel - Chemistry sodium, serum 137 mmol/L 712-692 0288/01/03 potassium, serum 3.4 mmol/L 3.5-5.2 chloride, serum 102 mmol/L 98-107 carbon dioxide, venous blood 29.2 mmol/L 21.0-32.0 blood glucose 87 mg/dL 65-110 calcium, serum 8.5 mg/dL 8.5-10.1 urea nitrogen, blood 8 mg/dL 7-18 creatinine, serum 0.82 mg/dL 0.55-1.30 sodium, serum 140 mmol/L 522-328 0443/07/13 potassium, serum 3.2 mmol/L 3.5-5.2 chloride, serum 103 mmol/L 98-107 carbon dioxide, venous blood 26.9 mmol/L 21.0-32.0 blood glucose 93 mg/dL 65-110 calcium, serum 9.2 mg/dL 8.5-10.1 urea nitrogen, blood 13 mg/dL 7-18 creatinine, serum 0.84 mg/dL 0.60-1.30 sodium, serum 140 mmol/L 411-381 5071/08/21 potassium, serum 3.8 mmol/L 3.5-5.2 chloride, serum [...] ... - Chemistry sodium, serum 141 mmol/L 184-395 3429/08/07 carbon dioxide, venous blood 34.0 mmol/L 21.0-32.0 [...] 1.40 mg/dL 0.00-1.00 cholesterol, serum 192 mg/dL 916-737 5264/10/19 triglyceride, serum, fasting 71 mg/dL 30-200 HDL cholesterol, serum 72 mg/dL 32-60 LDL cholesterol, serum 106 mg/dL 0-130 Lab Report: THEOPHYLLINE - Toxicology theophylline level, serum 3.1 ug/mL 10.0-20.0 Encounters Code Encounter Date Provider Facility CPT-06657 Level 4 Est. Patient 14:45:25 CDT Harinder Cr [facility] CPT-40106 Level 4 Est. Patient 09:15:13 CDT Harinder Hernandez [facility] CPT-42112 Level 3 Est. Patient 11:51:58 CDT Harinder Cr [facility] CPT-24069 Level 3 Est. Patient 11:30:05 CDT Harinder Cr [facility] CPT-73265 Level 4 Est. Patient 10:19:23 CDT Harinder Cr [facility] CPT-57885 Level 3 Est. Patient 09:58:58 CDT Harinder Hernandez [facility] CPT-11907 Level 3 Est. Patient 12:37:21 CDT Harinder Cr David [facility] CPT-40745 Level 3 Est. Patient 18:37:17 CDT Harinder Cr [facility] CPT-07420 Level 4 Est. Patient 11:15:54 CDT Nettie King MAHENDRA [facility] CPT-57908 Level 3 Est. Patient 16:42:24 CDT Harinder Cr [facility] CPT-85982 Level 3 Est. Patient 15:03:36 CDT Harinder Cr David [facility] CPT-91916 Level 3 Est. Patient 15:03:20 CDT Harinder Cr [facility] CPT-85833 Level 3 Est. Patient 12:14:34 CDT Harinder Cr David [facility] CPT-33376 Level 3 Est. Patient 13:47:15 CDT Harinder Cr [facility] CPT-34010 Level 3 Est. Patient 14:08:24 CDT Harinder Hernandez [facility] CPT-34149 Level 3 Est. Patient 10:07:15 CDT Harinder Cr [facility] CPT-16805 Level 3 Est. Patient 10:06:59 CDT Harinder Cr David [facility] CPT-43255 Level 3 Est. Patient 15:53:29 CDT Jae Morgan MD [facility] CPT-25205 Level 3 Est. Patient 17:19:04 CDT Harinder Cr [facility] CPT-60732 Level 3 Est. Patient 11:13:01 CDT Harinder Cr [facility] CPT-89935 Level 3 Est. Patient 09:03:58 CDT Harinder W David [facility] CPT-10708 Level 3 Est. Patient 14:46:45 PATCHING MACHINE OPERATOR Harinder Hernandze [facility] CPT-47258 Level 3 Est. Patient 09:35:49 PATCHING MACHINE OPERATOR Harinder Hernandez [facility] CPT-59150 Level 3 Est. Patient 09:29:37 PATCHING MACHINE OPERATOR Harinder Hernandez [facility] CPT-78068 Level 3 Est. Patient 15:51:07 CDT Harinder Hernandez [facility] CPT-43390 Level 3 Est. Patient 18:13:13 CDT Harinder Hernandez [facility] CPT-22323 Level 3 Est. Patient 10:44:19 CDT Harinder Hernandez [facility] CPT-83784 Level 4 Est. Patient 10:07:19 PATCHING MACHINE OPERATOR Harinder Hernandez [facility] CPT-33228 Level 3 Est. Patient 15:59:32 PATCHING MACHINE OPERATOR Harinder Cr [facility] Procedures Code Procedure Name Date Entry Date Standard Description CPT-83785 Abd compl w upright - XRAY USE ONLY 14:48:09 CDT 02/18 CPT-99503 Port a cath flush 13:46:05 CDT CPT-62106 Hip, complete, 2-3 views - XRAY USE ONLY 10:28:40 CDT CPT-42960 BMP - LAB USE ONLY 16:45:09 PATCHING MACHINE OPERATOR CPT-87468 Port a cath flush 12:00:13 PATCHING MACHINE OPERATOR CPT-TCMM Transitional Care Mgmt-Moderate 11:20:16 PATCHING MACHINE OPERATOR CPT-23069 First Vx - Ix admin for Medicare patients 17:35:15 CDT CPT-97386 Fluzone Preservative Free Intramuscular Suspension 17:35 :15 CDT CPT-41245 Microalbumin - LAB USE ONLY 11:52:05 CDT CPT-TCMM Transitional Care Mgmt-Moderate 11:33:57 CDT CPT-98183 No Charge Offi Visit 14:11:29 CDT CPT-51244 Magnesium - LAB USE ONLY 10:45:44 CDT CPT-03519 Lipid - LAB USE ONLY 10:45:44 CDT CPT-43436 CBC - LAB USE ONLY 10:45:44 CDT CPT-02919 Venipuncture Draw Fee 10:45:43 CDT CPT-56104 Venipuncture Draw Fee 18:21:27 CDT CPT-JTINJ Asp/Joint Injection 18:38:04 CDT CPT-56489 Immunization Each Additional Inj 17:38:04 CDT CPT-15153 Immunization Single Admin 17:38:04 CDT CPT-18654 Prevnar 13 17:38:04 CDT CPT-74258 Fluzone Quadrivalent preservative free (>=3yrs.) 17:38: 04 CDT CPT-55599 No Charge Offi Visit 11:14:03 CDT CPT-87112 Chest 2V Frontal and Lat 14:00:18 CDT CPT-OV Office Visit 16:10:28 CDT CPT-JTINJ Asp/Joint Injection 09:03:57 CDT CPT-Cryo Cryotherapy 09:35:49 PATCHING MACHINE OPERATOR CPT-JTINJ Asp/Joint Injection 09:34:45 PATCHING MACHINE OPERATOR CPT-J2930 Solu Medrol 125 mg (Methyl Prednisolone Sodium Succinate) 20:37:27 CDT CPT-42197 Abx/Therapy Injection 20:37:27 CDT CPT-37816 Port a cath flush 08:15:51 CDT CPT-20370 Port a cath flush 09:54:16 CDT CPT-11179 Port a cath flush 09:38:02 CDT CPT-87100 Port a cath flush 11:00:27 PATCHING MACHINE OPERATOR
--- OUTSIDE RECORDS SUMMARY | 2017-12-29 01:01 | XMS REPORT | Clinical Summary ---
Author Author Admin, QIE Organization [facility] Address Unknown Phone Unavailable Allergies, Adverse [...] neoplasms of colon Pneumonia 486 Resolved Harinder Henrandez DO Pneumonia , organism unspecified Bacteremia 790.7 [...] MG/0.3ML INJ SOAJ 1 INJ NEEDED EPINEPHRINE 45815337172 Active Tawnya Pardo MA Active PREDNISONE 20 MG TAB 1 tab twice daily for 3 day, then one daily for three days PREDNISONE 52393307379 No Longer Active Harinder Hernandez DO Active PREDNISONE 20 MG TAB 1 tablet twice daily for 2 days, then 1 tablet once daily for 2 days PREDNISONE 00006819821 No Longer Active Harinder Hernandez DO Active ASMANEX 120 METERED DOSES 220 MCG/INH INH AEPB 2 puffs orally twice daily MOMETASONE FUROATE 54856386357 Active Jeri Sosa RPT,RMA Active NIFEDIPINE ER 30 MG ORAL [id number] 1 daily NIFEDIPINE 01048064318 Active Tawnya Pardo MA Active TOPIRAMATE 25 MG TABS 1 tab po BID TOPIRAMATE 31862187266 No Longer Active Nettie Newberry APRN Active AMLODIPINE BESYLATE 5 MG ORAL TABS Take 1 tab po daily AMLODIPINE BESYLATE 69848857661 No Longer Active Nettie Newberry APRN Active MECLIZINE HCL 25 MG TAB 1 tablet three times daily for 3 days, then 1/2 tab three times daily for 3 days. MECLIZINE HCL 68993770390 No Longer Active Nettie Newberry APRN Active AMITRIPTYLINE HCL 25 MG ORAL TABS 1 q hs prn AMITRIPTYLINE HCL 21273141718 No Longer Active Nettie Newberry APRN Active DILAUDID 2 MG ORAL TABS Take 1/2 tab po every 4 hours as needed for pain 2014 HYDROMORPHONE HCL 60971706830 No Longer Active Nettie Newberry APRN Active CLOPIDOGREL BISULFATE 75 MG ORAL TABS 1 tab by mouth once daily CLOPIDOGREL BISULFATE 19011676815 Active Tawnya Pardo MA Active ATORVASTATIN CALCIUM 10 MG ORAL TABS 1 at bedtime ATORVASTATIN CALCIUM 64513358644 Active Tawnya Pardo MA Active LOVASTATIN 40 MG ORAL TABS Take 1 tab po every hs LOVASTATIN 84440989812 No Longer Active Harinder Hernandez DO Active PREDNISONE 20 MG TAB 2 tabs daily for 4 days, 1 tab daily for 4 days, 1/2 tab daily for 4 days PREDNISONE 48361318070 No Longer Active Harinder Hernandez DO Active LEVAQUIN 500 MG ORAL TABS Take 1 tab po daily x 8 days LEVOFLOXACIN 48347605075 No Longer Active Harinder Hernandez DO Active VENTOLIN HFA 108 (90 BASE) MCG/ACT AERS 2 -4 puffs four times a day PRN 2013 ALBUTEROL SULFATE 60246400438 No Longer Active Jeri Sosa RPT,RMA Active ACEBUTOLOL HCL 200 MG CAPS 1 cap in the morning and 2 caps in the evening ACEBUTOLOL HCL 67413130172 No Longer Active Harinder Hernandez DO Active CEFDINIR 300 MG ORAL CAPS take 1 cap po bid x 10 days CEFDINIR 26945022232 No Longer Active Harinder Hernandez DO Active LOVASTATIN 40 MG TABS 1 pill by mouth nightly for cholesterol LOVASTATIN 39919910880 No Longer Active Nettie Newberry APRN Active NITROSTAT 0.4 MG SUBL 1 tab under tongueas needed for chest pain ( may take 3 total, 5 min apart, then call 911) NITROGLYCERIN 29726105067 No Longer Active Nettie Newberry APRN Active POTASSIUM CHLORIDE CR 10 MEQ CPCR 1 capsule by mouth daily 02/14 POTASSIUM CHLORIDE 01786669518 No Longer Active Nettie Newberry APRN Active TESSALON PERLES 100 MG CAP 1 to 2 tablets by mouth 3 times daily as needed for cough BENZONATATE 89669522375 No Longer Active Nettie Newberry APRN Active THEOPHYLLINE ER 200 MG ORAL [id number] Take 1 tab every 12 hours THEOPHYLLINE 96426916872 Active Tawnya Pardo MA Active PREDNISONE 20 MG TAB 2 po qd x 5 days PREDNISONE 83062456723 No Longer Active Jae Morgan MD Active AZITHROMYCIN 250 MG TABS 2 po qd x 1 day, then 1 po qd x 4 days AZITHROMYCIN 35490315247 No Longer Active Jae Morgan MD Active PREDNISONE 20 MG TAB 1 tab twice daily for 3 day, then one daily for three days PREDNISONE 38728218321 No Longer Active Jae Morgan MD Active SINGULAIR 10 MG TABS 1 pill by mouth every evening for breathing. MONTELUKAST SODIUM 74794517933 Active Tawnya Pardo MA Active TYLENOL 325 MG TAB 3 by mouth q4h as needed ACETAMINOPHEN 72455159617 Active Harinder Hernandez DO Active POTASSIUM CHLORIDE ER 10 MEQ CR-TABS take 1 tab po daily POTASSIUM CHLORIDE 60304998009 No Longer Active Harinder Hernandez DO Active PREDNISONE 20 MG TAB 1 TID x 2 days, then 1 BID x 3 days, then 1 Daily x 3 days, then stop PREDNISONE 34755388857 No Longer Active John Montemayor APRN Active LEVAQUIN 500 MG TAB 1 tablet by mouth daily LEVOFLOXACIN 10174839671 No Longer Active Jillkvng Montemayor APRN Active NEURONTIN 300 MG CAP 1 cap by mouth three times daily for restless leg 06/22 GABAPENTIN 35249870733 No Longer Active Harinder Hernandez DO Active BENZONATATE 100 MG CAPS 1 cap po TID PRN BENZONATATE 26058836422 No Longer Active Harinder Hernandez DO Active MONTELUKAST SODIUM 10 MG TABS 1 tab po in the evening MONTELUKAST SODIUM 74788375694 No Longer Active Harinder Hernandez DO Active MUPIROCIN 2 % OINT apply to affected area BID x 14 days MUPIROCIN 30974702846 No Longer Active Harinder Hernandez DO Active TYLENOL EXTRA STRENGTH 500 MG TABS as needed ACETAMINOPHEN 84784154944 No Longer Active Harinder Hernandez DO Active PREDNISONE 10 MG TABS 1 tab po daily PREDNISONE 15143630401 No Longer Active Harinder Hernandez DO Active PREDNISONE 20 MG TAB 2 tabs daily for 4 days, 1 tab daily for 4 days, 1/2 tab daily for 4 days PREDNISONE 66199339755 No Longer Active Harinder Hernandez DO Active AZITHROMYCIN 250 MG TABS 2 po qd x 1 day, then 1 po qd x 4 days AZITHROMYCIN 39300407267 No Longer Active Harinder Hernandez DO Active PREDNISONE 20 MG TAB 3 tabs today, then 1 tab twice daily for 3 day, then one daily for three days PREDNISONE 92091247512 No Longer Active Harinder Hernandez DO Active NIFEDIAC CC 30 MG [id number] 1 tablet daily for raynaud's syndrome NIFEDIPINE 31313743798 No Longer Active Tawnya Pardo MA Active AMBIEN 10 MG TAB 1/2 tab by mouth at bedtime as needed for sleep ZOLPIDEM TARTRATE 42765467956 Active Harinder Hernandez DO Active CLONAZEPAM 1 MG TABS 1 tablet at bedtime for insomnia and restless legs 09/14 CLONAZEPAM 38137869905 Active Kaylah Newberry Active CLONAZEPAM 0.5 MG TABS 1 tab po daily CLONAZEPAM 22047661748 No Longer Active Harinder Hernandez DO Active PREDNISONE 10 MG TAB 1 tablet daily for COPD PREDNISONE 10976937422 Active Tawnya Pardo MA Active PROAIR HFA 108 (90 BASE) MCG/ACT AERS 2 puffs four times a day as needed 2012 ALBUTEROL SULFATE 11061701774 Active Tawnya Pardo MA Active FLOVENT HFA 110 MCG/ACT AERO 2 puffs inhaled b.i.d. FLUTICASONE PROPIONATE HFA 24802106610 Active Tawnya Pardo MA Active ACIPHEX 20 MG TBEC 1 tab po daily RABEPRAZOLE SODIUM 13160722119 Active Tawnya Pardo MA Active CLONAZEPAM 0.5 MG TABS 1 tab po daily CLONAZEPAM 0.5 MG TABS 366965 CLONAZEPAM Inactive PREDNISONE 20 MG TAB 3 tabs today, then 1 tab twice daily for 3 day, then one daily for three days PREDNISONE 20 MG TAB 501711 PREDNISONE Inactive PREDNISONE 20 MG TAB 2 tabs daily for 4 days, 1 tab daily for 4 days, 1/2 tab daily for 4 days PREDNISONE 20 MG TAB 064939 PREDNISONE Inactive PREDNISONE 10 MG TABS 1 tab po daily PREDNISONE 10 MG TABS 894992 PREDNISONE Inactive TYLENOL EXTRA STRENGTH 500 MG TABS as needed TYLENOL EXTRA STRENGTH 500 MG TABS 162144 ACETAMINOPHEN Inactive MUPIROCIN 2 % OINT apply to affected area BID x 14 days MUPIROCIN 2 % OINT 827189 MUPIROCIN Inactive MONTELUKAST SODIUM 10 MG TABS 1 tab po in the evening MONTELUKAST SODIUM 10 MG TABS 604937 MONTELUKAST SODIUM Inactive BENZONATATE 100 MG CAPS 1 cap po TID PRN BENZONATATE 100 MG CAPS 656570 BENZONATATE Inactive NEURONTIN 300 MG CAP 1 cap by mouth three times daily for restless leg 06/22 NEURONTIN 300 MG CAP 755002 GABAPENTIN Inactive LEVAQUIN 500 MG TAB 1 tablet by mouth daily LEVAQUIN 500 MG TAB 700105 LEVOFLOXACIN Inactive PREDNISONE 20 MG TAB 1 TID x 2 days, then 1 BID x 3 days, then 1 Daily x 3 days, then stop PREDNISONE 20 MG TAB 795194 PREDNISONE Inactive POTASSIUM CHLORIDE ER 10 MEQ CR-TABS take 1 tab po daily POTASSIUM CHLORIDE ER 10 MEQ CR-TABS POTASSIUM CHLORIDE Inactive PREDNISONE 20 MG TAB 1 tab twice daily for 3 day, then one daily for three days PREDNISONE 20 MG TAB 888232 PREDNISONE Inactive TESSALON PERLES 100 MG CAP 1 to 2 tablets by mouth 3 times daily as needed for cough TESSALON PERLES 100 MG CAP 528608 BENZONATATE Inactive POTASSIUM CHLORIDE CR 10 MEQ CPCR 1 capsule by mouth daily 02/14 POTASSIUM CHLORIDE CR 10 MEQ CPCR POTASSIUM CHLORIDE Inactive NITROSTAT 0.4 MG SUBL 1 tab under tongueas needed for chest pain ( may take 3 total, 5 min apart, then call 911) NITROSTAT 0.4 MG SUBL 952604 NITROGLYCERIN Inactive LOVASTATIN 40 MG TABS 1 pill by mouth nightly for cholesterol LOVASTATIN 40 MG TABS 891729 LOVASTATIN Inactive CEFDINIR 300 MG ORAL CAPS take 1 cap po bid x 10 days CEFDINIR 300 MG ORAL CAPS 232325 CEFDINIR Inactive ACEBUTOLOL HCL 200 MG CAPS 1 cap in the morning and 2 caps in the evening ACEBUTOLOL HCL 200 MG CAPS 806417 ACEBUTOLOL HCL Inactive VENTOLIN HFA 108 (90 BASE) MCG/ACT AERS 2 -4 puffs four times a day PRN 2013 VENTOLIN HFA 108 (90 BASE) MCG/ACT AERS ALBUTEROL SULFATE Inactive LEVAQUIN 500 MG ORAL TABS Take 1 tab po daily x 8 days LEVAQUIN 500 MG ORAL TABS 261071 LEVOFLOXACIN Inactive PREDNISONE 20 MG TAB 2 tabs daily for 4 days, 1 tab daily for 4 days, 1/2 tab daily for 4 days PREDNISONE 20 MG TAB 120664 PREDNISONE Inactive LOVASTATIN 40 MG ORAL TABS Take 1 tab po every hs LOVASTATIN 40 MG ORAL TABS 405811 LOVASTATIN Inactive DILAUDID 2 MG ORAL TABS Take 1/2 tab po every 4 hours as needed for pain 2014 DILAUDID 2 MG ORAL TABS 783228 HYDROMORPHONE HCL Inactive AMITRIPTYLINE HCL 25 MG ORAL TABS 1 q hs prn AMITRIPTYLINE HCL 25 MG ORAL TABS 225325 AMITRIPTYLINE HCL Inactive MECLIZINE HCL 25 MG TAB 1 tablet three times daily for 3 days, then 1/2 tab three times daily for 3 days. MECLIZINE HCL 25 MG TAB 598711 MECLIZINE HCL Inactive AMLODIPINE BESYLATE 5 MG ORAL TABS Take 1 tab po daily AMLODIPINE BESYLATE 5 MG ORAL TABS 102684 AMLODIPINE BESYLATE Inactive TOPIRAMATE 25 MG TABS 1 tab po BID TOPIRAMATE 25 MG TABS 281721 TOPIRAMATE Inactive PREDNISONE 20 MG TAB 1 tablet twice daily for 2 days, then 1 tablet once daily for 2 days PREDNISONE 20 MG TAB 243684 PREDNISONE Inactive PREDNISONE 20 MG TAB 1 tab twice daily for 3 day, then one daily for three days PREDNISONE 20 MG TAB 871368 PREDNISONE Inactive AZITHROMYCIN 250 MG TABS 2 po qd x 1 day, then 1 po qd x 4 days AZITHROMYCIN 250 MG TABS 0417883 AZITHROMYCIN Inactive AZITHROMYCIN 250 MG TABS 2 po qd x 1 day, then 1 po qd x 4 days AZITHROMYCIN 250 MG TABS 3787577 AZITHROMYCIN Inactive PREDNISONE 20 MG TAB 2 po qd x 5 days PREDNISONE 20 MG TAB 486127 PREDNISONE Inactive Vital Signs Date Name Value [...] Magnesium - Chemistry cholesterol, serum 180 mg/dL 688-072 7595/08/08 triglyceride, serum, fasting 92 mg/dL 30-200 HDL cholesterol, serum 66 mg/dL 32-96 LDL cholesterol, serum 96 mg/dL 0-130 sodium, serum 142 mmol/L 722-613 8945/08/08 carbon dioxide, venous blood 27.4 mmol/L 21.0-32.0 [...] 10.0-20.0 Encounters Code Encounter Date Provider Facility CPT-30484 Level 3 Est. Patient 09:58:58 CDT Harinder Cr [facility] CPT-05552 Level 3 Est. Patient 12:37:21 CDT Harinder Cr [facility] CPT-24093 Level 3 Est. Patient 18:37:17 CDT Harinder Cr [facility] CPT-69110 Level 4 Est. Patient 11:15:54 CDT Nettie [facility] CPT-02052 Level 3 Est. Patient 16:42:24 CDT Harinder Hernandez [facility] CPT-88160 Level 3 Est. Patient 15:03:36 CDT Harinder Hernandez [facility] CPT-28260 Level 3 Est. Patient 15:03:20 CDT Harinder Hernandez [facility] CPT-79199 Level 3 Est. Patient 12:14:34 CDT Harinder Hernandez [facility] CPT-60198 Level 3 Est. Patient 13:47:15 CDT Harinder Hernandez [facility] CPT-07513 Level 3 Est. Patient 14:08:24 CDT Harinder Hernandez [facility] CPT-45574 Level 3 Est. Patient 10:07:15 CDT Harinder Hernandez [facility] CPT-62820 Level 3 Est. Patient 10:06:59 CDT Harinder Hernandez [facility] CPT-41274 Level 3 Est. Patient 15:53:29 CDT Jae Morgan [facility] CPT-15086 Level 3 Est. Patient 17:19:04 CDT Harinder Hernandez [facility] CPT-11420 Level 3 Est. Patient 11:13:01 CDT Harinder Hernandez [facility] CPT-47353 Level 3 Est. Patient 09:03:58 CDT Harinder Hernandez [facility] CPT-03012 Level 3 Est. Patient 14:46:45 FLOW COORDINATOR Harinder Hernandez [facility] CPT-52090 Level 3 Est. Patient 09:35:49 FLOW COORDINATOR Harinder Shaye Hernandez [facility] CPT-03590 Level 3 Est. Patient 09:29:37 FLOW COORDINATOR Harinder Shaye Hernandez [facility] CPT-86684 Level 3 Est. Patient 15:51:07 CDT Harinder Hernandez [facility] CPT-76155 Level 3 Est. Patient 18:13:13 CDT Harinder Hernandez [facility] CPT-80581 Level 3 Est. Patient 10:44:19 CDT Harinder Hernandez [facility] CPT-25682 Level 4 Est. Patient 10:07:19 FLOW COORDINATOR Harinder Cr [facility] CPT-18714 Level 3 Est. Patient 15:59:32 FLOW COORDINATOR Harinder Cr [facility] Procedures Code Procedure Name Date Entry Date Standard Description CPT-TCMM Transitional Care Mgmt-Moderate 11:33:57 CDT CPT-00237 No Charge Offi Visit 14:11:29 CDT CPT-20246 Magnesium - LAB USE ONLY 10:45:44 CDT CPT-55435 Lipid - LAB USE ONLY 10:45:44 CDT CPT-97924 CBC - LAB USE ONLY 10:45:44 CDT CPT-60932 Venipuncture Draw Fee 10:45:43 CDT CPT-65163 Venipuncture Draw Fee 18:21:27 CDT CPT-JTINJ Asp/Joint Injection 18:38:04 CDT CPT-28262 Immunization Each Additional Inj 17:38:04 CDT CPT-42574 Immunization Single Admin 17:38:04 CDT CPT-64828 Prevnar 13 17:38:04 CDT CPT-32619 Fluzone Quadrivalent preservative free (>=3yrs.) 17:38: 04 CDT CPT-25654 No Charge Offi Visit 11:14:03 CDT CPT-45528 Chest 2V Frontal and Lat 14:00:18 CDT CPT-OV Office Visit 16:10:28 CDT CPT-JTINJ Asp/Joint Injection 09:03:57 CDT CPT-Cryo Cryotherapy 09:35:49 FLOW COORDINATOR CPT-JTINJ Asp/Joint Injection 09:34:45 FLOW COORDINATOR CPT-J2930 Solu Medrol 125 mg (Methyl Prednisolone Sodium Succinate) 20:37:27 CDT CPT-23498 Abx/Therapy Injection 20:37:27 CDT CPT-62421 Port a cath flush 08:15:51 CDT CPT-46228 Port a cath flush 09:54:16 CDT CPT-65012 Port a cath flush 09:38:02 CDT CPT-32931 Port a cath flush 11:00:27 FLOW COORDINATOR
--- OUTSIDE RECORDS SUMMARY | 2017-12-29 01:02 | XMS REPORT | Clinical Summary ---
Author Author Admin, QIE Organization [facility] Address Unknown Phone Unavailable Allergies, Adverse Reactions, [...] organism unspecified Bacteremia 790.7 Resolved Harinder Shaye David DO Unspecified bacteremia Clostridium difficile colitis 008.45 Resolved Harinder Shaye Hernandez DO Intestinal infection due to clostridium difficile Abdominal pain, right lower quadrant 789.03 Res[address] David DO Abdominal pain, right lower quadrant Needs vaccination for influenza V04.81 Resolved Harinder Shaye David DO Need for prophylactic vaccination and [...] Active Harinder Hernandez DO Muscle weakness (generalized) Breast mass, right ICD-611.72 Inactive Harinder Hernandez [...] Needs vaccination for influenza ICD-V04.81 Inactive Harinder Shaye David DO Need for prophylactic vaccination against streptococcus pneumoniae ( Pneumococcus) ICD-V03.82 Inactive Harinder Hernandez DO Greater trochanteric bursitis, left ICD-726.5 Inactive Harinder Hernandez DO Medication List Medication Instructions Start Date Stop Date Generic Name NDC Status Provider Patient Instruction PREDNISONE 20 MG TAB 1 tab twice daily for 3 day, then one daily for three days PREDNISONE 27695107043 No Longer Active Harinder W David DO Active PREDNISONE 20 MG TAB 1 tablet twice daily for 2 days, then 1 tablet once daily for 2 days PREDNISONE 39713255206 No Longer Active Harinder Hernandez DO Active ASMANEX 120 METERED DOSES 220 MCG/INH INH AEPB 2 puffs orally twice daily MOMETASONE FUROATE 28272237465 Active Jeri Sosa RPT,RMA Active NIFEDIPINE ER 30 MG ORAL [id number] 1 daily NIFEDIPINE 74778688021 Active Tawnya Pardo MA Active TOPIRAMATE 25 MG TABS 1 tab po BID TOPIRAMATE 64411234606 No Longer Active Nettie Newberry APRN Active AMLODIPINE BESYLATE 5 MG ORAL TABS Take 1 tab po daily AMLODIPINE BESYLATE 04593415260 No Longer Active Nettie Newberry APRN Active MECLIZINE HCL 25 MG TAB 1 tablet three times daily for 3 days, then 1/2 tab three times daily for 3 days. MECLIZINE HCL 44060764045 No Longer Active Nettie Newberry APRN Active AMITRIPTYLINE HCL 25 MG ORAL TABS 1 q hs prn AMITRIPTYLINE HCL 92683239939 No Longer Active Nettie Newberry APRN Active DILAUDID 2 MG ORAL TABS Take 1/2 tab po every 4 hours as needed for pain 2014 HYDROMORPHONE HCL 44107504928 No Longer Active Nettie Newberry APRN Active CLOPIDOGREL BISULFATE 75 MG ORAL TABS 1 tab by mouth once daily CLOPIDOGREL BISULFATE 39174969163 Active Jeri Sosa RPT,RMA Active ATORVASTATIN CALCIUM 10 MG ORAL TABS 1 at bedtime ATORVASTATIN CALCIUM 97016232434 Active Jeri Sosa RPT,RMA Active LOVASTATIN 40 MG ORAL TABS Take 1 tab po every hs LOVASTATIN 66737991767 No Longer Active Harinder Hernandez DO Active PREDNISONE 20 MG TAB 2 tabs daily for 4 days, 1 tab daily for 4 days, 1/2 tab daily for 4 days PREDNISONE 06414955736 No Longer Active Harinder Hernandez DO Active LEVAQUIN 500 MG ORAL TABS Take 1 tab po daily x 8 days LEVOFLOXACIN 54685587959 No Longer Active Harinder Hernandez DO Active VENTOLIN HFA 108 (90 BASE) MCG/ACT AERS 2 -4 puffs four times a day PRN 2013 ALBUTEROL SULFATE 50550956710 No Longer Active Jeri Sosa RPT,RMA Active ACEBUTOLOL HCL 200 MG CAPS 1 cap in the morning and 2 caps in the evening ACEBUTOLOL HCL 30929754224 No Longer Active Harinder Hernandez DO Active CEFDINIR 300 MG ORAL CAPS take 1 cap po bid x 10 days CEFDINIR 73051476648 No Longer Active Harinder Hernandez DO Active LOVASTATIN 40 MG TABS 1 pill by mouth nightly for cholesterol LOVASTATIN 04488878659 No Longer Active Nettie Newberry APRN Active NITROSTAT 0.4 MG SUBL 1 tab under tongueas needed for chest pain ( may take 3 total, 5 min apart, then call 911) NITROGLYCERIN 79132080180 No Longer Active Nettie Newberry APRN Active POTASSIUM CHLORIDE CR 10 MEQ CPCR 1 capsule by mouth daily 02/14 POTASSIUM CHLORIDE 25914723976 No Longer Active Nettie Newberry APRN Active TESSALON PERLES 100 MG CAP 1 to 2 tablets by mouth 3 times daily as needed for cough BENZONATATE 33632606949 No Longer Active Nettie Newberry APRN Active THEOPHYLLINE ER 200 MG ORAL [id number] Take 1 tab every 12 hours THEOPHYLLINE 75546604666 Active Jeri Sosa RPT,RMA Active PREDNISONE 20 MG TAB 2 po qd x 5 days PREDNISONE 71741333222 No Longer Active Jae Morgan MD Active AZITHROMYCIN 250 MG TABS 2 po qd x 1 day, then 1 po qd x 4 days AZITHROMYCIN 57161458585 No Longer Active Jae Morgan MD Active PREDNISONE 20 MG TAB 1 tab twice daily for 3 day, then one daily for three days PREDNISONE 07146970927 No Longer Active Jae Morgan MD Active SINGULAIR 10 MG TABS 1 pill by mouth every evening for breathing. MONTELUKAST SODIUM 06362492821 Active Tawnya Pardo MA Active TYLENOL 325 MG TAB 3 by mouth q4h as needed ACETAMINOPHEN 68031638815 Active Harinder Hernandez DO Active POTASSIUM CHLORIDE ER 10 MEQ CR-TABS take 1 tab po daily POTASSIUM CHLORIDE 78266854091 No Longer Active Harinder Hernandez DO Active PREDNISONE 20 MG TAB 1 TID x 2 days, then 1 BID x 3 days, then 1 Daily x 3 days, then stop PREDNISONE 33739366247 No Longer Active Jillina Frazell [employer] Active LEVAQUIN 500 MG TAB 1 tablet by mouth daily LEVOFLOXACIN 64116024270 No Longer Active Jillina Frazell [employer] Active NEURONTIN 300 MG CAP 1 cap by mouth three times daily for restless leg 06/22 GABAPENTIN 29477745667 No Longer Active Harinder Hernandez DO Active BENZONATATE 100 MG CAPS 1 cap po TID PRN BENZONATATE 63657596696 No Longer Active Harinder Hernandez DO Active MONTELUKAST SODIUM 10 MG TABS 1 tab po in the evening MONTELUKAST SODIUM 25967493869 No Longer Active Harinder Hernandez DO Active MUPIROCIN 2 % OINT apply to affected area BID x 14 days MUPIROCIN 14949819158 No Longer Active Harinder Hernandez DO Active TYLENOL EXTRA STRENGTH 500 MG TABS as needed ACETAMINOPHEN 57110385535 No Longer Active Harinder Hernandez DO Active PREDNISONE 10 MG TABS 1 tab po daily PREDNISONE 42183672472 No Longer Active Harinder Hernandez DO Active PREDNISONE 20 MG TAB 2 tabs daily for 4 days, 1 tab daily for 4 days, 1/2 tab daily for 4 days PREDNISONE 29499337828 No Longer Active Harinder Hernandez DO Active AZITHROMYCIN 250 MG TABS 2 po qd x 1 day, then 1 po qd x 4 days AZITHROMYCIN 99491307688 No Longer Active Harinder Hernandez DO Active PREDNISONE 20 MG TAB 3 tabs today, then 1 tab twice daily for 3 day, then one daily for three days PREDNISONE 77201483037 No Longer Active Harinder Hernandez DO Active NIFEDIAC CC 30 MG [id number] 1 tablet daily for raynaud's syndrome NIFEDIPINE 42319781026 No Longer Active Tawnya Pardo MA Active AMBIEN 10 MG TAB 1/2 tab by mouth at bedtime as needed for sleep ZOLPIDEM TARTRATE 78305404944 Active Harinder Hernandez DO Active CLONAZEPAM 1 MG TABS 1 tablet at bedtime for insomnia and restless legs 09/14 CLONAZEPAM 12297112462 Active Jeri Sosa RPT,RMA Active CLONAZEPAM 0.5 MG TABS 1 tab po daily CLONAZEPAM 86743487237 No Longer Active Harinder Hernandez DO Active PREDNISONE 10 MG TAB 1 tablet daily for COPD PREDNISONE 91626144637 Active Tawnya Pardo MA Active PROAIR HFA 108 (90 BASE) MCG/ACT AERS 2 puffs four times a day as needed 2012 ALBUTEROL SULFATE 68040321752 Active Tawnya Pardo MA Active FLOVENT HFA 110 MCG/ACT AERO 2 puffs inhaled b.i.d. FLUTICASONE PROPIONATE HFA 84567764022 Active Tawnya Pardo MA Active EPIPEN 0.3 MG/0.3ML URIEL DIRECTED EPINEPHRINE Active Jeri Sosa RPT,RMA Active ACIPHEX 20 MG TBEC 1 tab po daily RABEPRAZOLE SODIUM 36590398245 Active Tawnya Pardo MA Active CLONAZEPAM 0.5 MG TABS 1 tab po daily CLONAZEPAM 0.5 MG TABS 680808 CLONAZEPAM Inactive PREDNISONE 20 MG TAB 3 tabs today, then 1 tab twice daily for 3 day, then one daily for three days PREDNISONE 20 MG TAB 898922 PREDNISONE Inactive PREDNISONE 20 MG TAB 2 tabs daily for 4 days, 1 tab daily for 4 days, 1/2 tab daily for 4 days PREDNISONE 20 MG TAB 161282 PREDNISONE Inactive PREDNISONE 10 MG TABS 1 tab po daily PREDNISONE 10 MG TABS 267599 PREDNISONE Inactive TYLENOL EXTRA STRENGTH 500 MG TABS as needed TYLENOL EXTRA STRENGTH 500 MG TABS 438263 ACETAMINOPHEN Inactive MUPIROCIN 2 % OINT apply to affected area BID x 14 days MUPIROCIN 2 % OINT 735302 MUPIROCIN Inactive MONTELUKAST SODIUM 10 MG TABS 1 tab po in the evening MONTELUKAST SODIUM 10 MG TABS 239135 MONTELUKAST SODIUM Inactive BENZONATATE 100 MG CAPS 1 cap po TID PRN BENZONATATE 100 MG CAPS 876036 BENZONATATE Inactive NEURONTIN 300 MG CAP 1 cap by mouth three times daily for restless leg 06/22 NEURONTIN 300 MG CAP 197918 GABAPENTIN Inactive LEVAQUIN 500 MG TAB 1 tablet by mouth daily LEVAQUIN 500 MG TAB 631128 LEVOFLOXACIN Inactive PREDNISONE 20 MG TAB 1 TID x 2 days, then 1 BID x 3 days, then 1 Daily x 3 days, then stop PREDNISONE 20 MG TAB 672652 PREDNISONE Inactive POTASSIUM CHLORIDE ER 10 MEQ CR-TABS take 1 tab po daily POTASSIUM CHLORIDE ER 10 MEQ CR-TABS POTASSIUM CHLORIDE Inactive PREDNISONE 20 MG TAB 1 tab twice daily for 3 day, then one daily for three days PREDNISONE 20 MG TAB 340705 PREDNISONE Inactive TESSALON PERLES 100 MG CAP 1 to 2 tablets by mouth 3 times daily as needed for cough TESSALON PERLES 100 MG CAP 673072 BENZONATATE Inactive POTASSIUM CHLORIDE CR 10 MEQ [...] nightly for cholesterol LOVASTATIN 40 MG TABS 150610 LOVASTATIN Inactive CEFDINIR 300 MG ORAL CAPS take 1 cap po bid x 10 days CEFDINIR 300 MG ORAL CAPS 258110 CEFDINIR Inactive ACEBUTOLOL HCL 200 MG CAPS 1 cap in the morning and 2 caps in the evening ACEBUTOLOL HCL 200 MG CAPS 156892 ACEBUTOLOL HCL Inactive VENTOLIN HFA 108 (90 BASE) MCG/ACT AERS 2 -4 puffs four times a day PRN 2013 VENTOLIN HFA 108 (90 BASE) MCG/ACT AERS ALBUTEROL SULFATE Inactive LEVAQUIN 500 MG ORAL TABS Take 1 tab po daily x 8 days LEVAQUIN 500 MG ORAL TABS 684588 LEVOFLOXACIN Inactive PREDNISONE 20 MG TAB 2 tabs daily for 4 days, 1 tab daily for 4 days, 1/2 tab daily for 4 days PREDNISONE 20 MG TAB 887242 PREDNISONE Inactive LOVASTATIN 40 MG ORAL TABS Take 1 tab po every hs LOVASTATIN 40 MG ORAL TABS 164146 LOVASTATIN Inactive DILAUDID 2 MG ORAL TABS Take 1/2 tab po every 4 hours as needed for pain 2014 DILAUDID 2 MG ORAL TABS 002168 HYDROMORPHONE HCL Inactive AMITRIPTYLINE HCL 25 MG ORAL TABS 1 q hs prn AMITRIPTYLINE HCL 25 MG ORAL TABS 822756 AMITRIPTYLINE HCL Inactive MECLIZINE HCL 25 MG TAB 1 tablet three times daily for 3 days, then 1/2 tab three times daily for 3 days. MECLIZINE HCL 25 MG TAB 050880 MECLIZINE HCL Inactive AMLODIPINE BESYLATE 5 MG ORAL TABS Take 1 tab po daily AMLODIPINE BESYLATE 5 MG ORAL TABS 410170 AMLODIPINE BESYLATE Inactive TOPIRAMATE 25 MG TABS 1 tab po BID TOPIRAMATE 25 MG TABS 431615 TOPIRAMATE Inactive PREDNISONE 20 MG TAB 1 tablet twice daily for 2 days, then 1 tablet once daily for 2 days PREDNISONE 20 MG TAB 854696 PREDNISONE Inactive PREDNISONE 20 MG TAB 1 tab twice daily for 3 day, then one daily for three days PREDNISONE 20 MG TAB 347340 PREDNISONE Inactive AZITHROMYCIN 250 MG TABS 2 po qd x 1 day, then 1 po qd x 4 days AZITHROMYCIN 250 MG TABS 3202186 AZITHROMYCIN Inactive AZITHROMYCIN 250 MG TABS 2 po qd x 1 day, then 1 po qd x 4 days AZITHROMYCIN 250 MG TABS 3141507 AZITHROMYCIN Inactive PREDNISONE 20 MG TAB 2 po qd x 5 days PREDNISONE 20 MG TAB 318216 PREDNISONE Inactive Vital Signs Date Name Value Unit Range Description blood pressure, diastolic - 8462-4 69 mm[Hg] [...] Panel - Chemistry sodium, serum 138 mmol/L 384-214 0295/09/24 potassium, serum 3.5 mmol/L 3.5-5.2 chloride, serum [...] Magnesium - Chemistry cholesterol, serum 180 mg/dL 409-772 4139/08/08 triglyceride, serum, fasting 92 mg/dL 30-200 HDL cholesterol, serum 66 mg/dL 32-96 LDL cholesterol, serum 96 mg/dL 0-130 sodium, serum 142 mmol/L 388-905 3606/08/08 carbon dioxide, venous blood 27.4 mmol/L 21.0-32.0 [...] 10.0-20.0 Encounters Code Encounter Date Provider Facility CPT-51495 Level 3 Est. Patient 09:58:58 CDT Harinder Hernandez [facility] CPT-35974 Level 3 Est. Patient 12:37:21 CDT Harinder Hernandez [facility] CPT-38443 Level 3 Est. Patient 18:37:17 CDT Harinder Hernandez [facility] CPT-47911 Level 4 Est. Patient 11:15:54 CDT Nettie Newberry APRN [facility] CPT-79159 Level 3 Est. Patient 16:42:24 CDT Harinder Hernandez [facility] CPT-68566 Level 3 Est. Patient 15:03:36 CDT Harinder Hernandez [facility] CPT-26948 Level 3 Est. Patient 15:03:20 CDT Harinder Hernandez [facility] CPT-62279 Level 3 Est. Patient 12:14:34 CDT Harinder Shaye David [facility] CPT-02569 Level 3 Est. Patient 13:47:15 CDT Harinder Hernandez [facility] CPT-94615 Level 3 Est. Patient 14:08:24 CDT Harinder Hernandez [facility] CPT-50754 Level 3 Est. Patient 10:07:15 CDT Harinder Hernandez [facility] CPT-19934 Level 3 Est. Patient 10:06:59 CDT Harinder Hernandez [facility] CPT-25067 Level 3 Est. Patient 15:53:29 CDT Jae Morgan MD [facility] CPT-90913 Level 3 Est. Patient 17:19:04 CDT Harinder Shaye David [facility] CPT-57978 Level 3 Est. Patient 11:13:01 CDT Harinder Cr David [facility] CPT-18764 Level 3 Est. Patient 09:03:58 CDT Harinder Hernandez [facility] CPT-03397 Level 3 Est. Patient 14:46:45 ASSISTED LIVING MANAGER Harinder Hernandez [facility] CPT-36103 Level 3 Est. Patient 09:35:49 ASSISTED LIVING MANAGER Harinder Hernandez [facility] CPT-59466 Level 3 Est. Patient 09:29:37 ASSISTED LIVING MANAGER Harinder Hernandez [facility] CPT-87603 Level 3 Est. Patient 15:51:07 CDT Hairnder Hernandez [facility] CPT-58756 Level 3 Est. Patient 18:13:13 CDT Harinder Hernandez [facility] CPT-54620 Level 3 Est. Patient 10:44:19 CDT Harindre Hernandez [facility] CPT-15411 Level 4 Est. Patient 10:07:19 ASSISTED LIVING MANAGER Harinder Cr [facility] CPT-12663 Level 3 Est. Patient 15:59:32 ASSISTED LIVING MANAGER Harinder Cr [facility] Procedures Code Procedure Name Date Entry Date Standard Description CPT-80977 No Charge Offi Visit 14:11:29 CDT CPT-52943 Magnesium - LAB USE ONLY 10:45:44 CDT CPT-30789 Lipid - LAB USE ONLY 10:45:44 CDT CPT-36325 CBC - LAB USE ONLY 10:45:44 CDT CPT-15292 Venipuncture Draw Fee 10:45:43 CDT CPT-85595 Venipuncture Draw Fee 18:21:27 CDT CPT-JTINJ Asp/Joint Injection 18:38:04 CDT CPT-18886 Immunization Each Additional Inj 17:38:04 CDT CPT-09549 Immunization Single Admin 17:38:04 CDT CPT-68165 Prevnar 13 17:38:04 CDT CPT-19699 Fluzone Quadrivalent preservative free (>=3yrs.) 17:38: 04 CDT CPT-27458 No Charge Offi Visit 11:14:03 CDT CPT-09511 Chest 2V Frontal and Lat 14:00:18 CDT CPT-OV Office Visit 16:10:28 CDT CPT-JTINJ Asp/Joint Injection 09:03:57 CDT CPT-Cryo Cryotherapy 09:35:49 ASSISTED LIVING MANAGER CPT-JTINJ Asp/Joint Injection 09:34:45 ASSISTED LIVING MANAGER CPT-J2930 Solu Medrol 125 mg (Methyl Prednisolone Sodium Succinate) 20:37:27 CDT CPT-13345 Abx/Therapy Injection 20:37:27 CDT CPT-11274 Port a cath flush 08:15:51 CDT CPT-46766 Port a cath flush 09:54:16 CDT CPT-41505 Port a cath flush 09:38:02 CDT CPT-62545 Port a cath flush 11:00:27 ASSISTED LIVING MANAGER
--- OUTSIDE RECORDS SUMMARY | 2017-12-29 01:03 | XMS REPORT | Clinical Summary ---
Author Author Admin, QIE Organization [facility] [employer] Address Unknown Phone Unavailable Allergies, Adverse Reactions, [...] Harinder Hernandez DO CODEINE Critical Active Harinder Hrenandez DO BENADRYL Critical Active Harinder Hernandez DO [...] neb q 4hrs PRN Wheezing ALBUTEROL SULFATE [id number] Active Harinder Hernandez DO Active FLOVENT HFA 110 MCG/ACT AERO 2 puffs inhaled b.i.d. FLUTICASONE PROPIONATE HFA 77486439062 Active Harinder Hernandez DO Active POTASSIUM CHLORIDE CR 10 MEQ CPCR 1 capsule by mouth daily POTASSIUM CHLORIDE 99931864538 Active Harinder Hernandez DO Active EPIPEN 2-BRUNA 0.3 MG/0.3ML INJ SOAJ 1 INJ NEEDED EPINEPHRINE 44742258260 Active Tawnya Pardo MA Active PREDNISONE 20 MG TAB 1 tab twice daily for 3 day, then one daily for three days PREDNISONE 24187544993 No Longer Active Harinder Hernandez DO Active PREDNISONE 20 MG TAB 1 tablet twice daily for 2 days, then 1 tablet once daily for 2 days PREDNISONE 69287751623 No Longer Active Harinder Hernandez DO Active ASMANEX 120 METERED DOSES 220 MCG/INH INH AEPB 2 puffs orally twice daily MOMETASONE FUROATE 92618417831 Active Jeir Sosa RPT,RMA Active NIFEDIPINE ER 30 MG ORAL [id number] 1 daily NIFEDIPINE 50267573632 Active Harinder Hernandez DO Active TOPIRAMATE 25 MG TABS 1 tab po BID TOPIRAMATE 92585469097 No Longer Active Nettie Newberry APRN Active AMLODIPINE BESYLATE 5 MG ORAL TABS Take 1 tab po daily AMLODIPINE BESYLATE 19729845503 No Longer Active Nettie Newberry APRN Active MECLIZINE HCL 25 MG TAB 1 tablet three times daily for 3 days, then 1/2 tab three times daily for 3 days. MECLIZINE HCL 94283023315 No Longer Active Nettie Newberry APRN Active AMITRIPTYLINE HCL 25 MG ORAL TABS 1 q hs prn AMITRIPTYLINE HCL 48450304940 No Longer Active Nettie eNwberry APRN Active DILAUDID 2 MG ORAL TABS Take 1/2 tab po every 4 hours as needed for pain 2014 HYDROMORPHONE HCL 78429758483 No Longer Active Nettie Newberry APRN Active CLOPIDOGREL BISULFATE 75 MG ORAL TABS 1 tab by mouth once daily CLOPIDOGREL BISULFATE 86157792269 Active Tawnya Pardo MA Active ATORVASTATIN CALCIUM 10 MG ORAL TABS 1 at bedtime ATORVASTATIN CALCIUM 49341477066 Active Tawnya Pardo MA Active LOVASTATIN 40 MG ORAL TABS Take 1 tab po every hs LOVASTATIN 22280228256 No Longer Active Harinder Hernandez DO Active PREDNISONE 20 MG TAB 2 tabs daily for 4 days, 1 tab daily for 4 days, 1/2 tab daily for 4 days PREDNISONE 02210864120 No Longer Active Harinder Hernandez DO Active LEVAQUIN 500 MG ORAL TABS Take 1 tab po daily x 8 days LEVOFLOXACIN 98758341721 No Longer Active Harinder Hernandez DO Active VENTOLIN HFA 108 (90 BASE) MCG/ACT AERS 2 -4 puffs four times a day PRN 2013 ALBUTEROL SULFATE 97395817573 No Longer Active Jeri Sosa RPT,RMA Active ACEBUTOLOL HCL 200 MG CAPS 1 cap in the morning and 2 caps in the evening ACEBUTOLOL HCL 90994335725 No Longer Active Harinder Hernandez DO Active CEFDINIR 300 MG ORAL CAPS take 1 cap po bid x 10 days CEFDINIR 78059570387 No Longer Active Harinder Hernandez DO Active LOVASTATIN 40 MG TABS 1 pill by mouth nightly for cholesterol LOVASTATIN 39858744535 No Longer Active Nettie Newberry APRN Active NITROSTAT 0.4 MG SUBL 1 tab under tongueas needed for chest pain ( may take 3 total, 5 min apart, then call 911) NITROGLYCERIN 54071916556 No Longer Active Nettie Newberry MAHENDRA Active POTASSIUM CHLORIDE CR 10 MEQ CPCR 1 capsule by mouth daily 02/14 POTASSIUM CHLORIDE 55283241297 No Longer Active Nettie Newberry MAHENDRA Active TESSALON PERLES 100 MG CAP 1 to 2 tablets by mouth 3 times daily as needed for cough BENZONATATE 90390142657 No Longer Active Nettie Newberry MAHENDRA Active THEOPHYLLINE ER 200 MG ORAL [id number] Take 1 tab every 12 hours THEOPHYLLINE 17962818873 Active Tawnya Pardo MA Active PREDNISONE 20 MG TAB 2 po qd x 5 days PREDNISONE 07062460579 No Longer Active Jae Morgan MD Active AZITHROMYCIN 250 MG TABS 2 po qd x 1 day, then 1 po qd x 4 days AZITHROMYCIN 57530527066 No Longer Active Jae Morgan MD Active PREDNISONE 20 MG TAB 1 tab twice daily for 3 day, then one daily for three days PREDNISONE 73983904390 No Longer Active Jae Morgan MD Active SINGULAIR 10 MG TABS 1 pill by mouth every evening for breathing. MONTELUKAST SODIUM 37536447393 Active Tawnya Pardo MA Active TYLENOL 325 MG TAB 3 by mouth q4h as needed ACETAMINOPHEN 06517962368 Active Harinder Hernandez DO Active POTASSIUM CHLORIDE ER 10 MEQ CR-TABS take 1 tab po daily POTASSIUM CHLORIDE 00042355624 No Longer Active Harinder Hernandez DO Active PREDNISONE 20 MG TAB 1 TID x 2 days, then 1 BID x 3 days, then 1 Daily x 3 days, then stop PREDNISONE 83854826827 No Longer Active Jialec Montemayor APRN Active LEVAQUIN 500 MG TAB 1 tablet by mouth daily LEVOFLOXACIN 29562579951 No Longer Active Jillina Frazell COOK BOAT Active NEURONTIN 300 MG CAP 1 cap by mouth three times daily for restless leg 06/22 GABAPENTIN 62610334605 No Longer Active Harinder Hernandez DO Active BENZONATATE 100 MG CAPS 1 cap po TID PRN BENZONATATE 24215171808 No Longer Active Harinder Hernandez DO Active MONTELUKAST SODIUM 10 MG TABS 1 tab po in the evening MONTELUKAST SODIUM 35213243653 No Longer Active Harinder Hernandez DO Active MUPIROCIN 2 % OINT apply to affected area BID x 14 days MUPIROCIN 97889322708 No Longer Active Harinder Hernandez DO Active TYLENOL EXTRA STRENGTH 500 MG TABS as needed ACETAMINOPHEN 33292134343 No Longer Active Harinder Hernandez DO Active PREDNISONE 10 MG TABS 1 tab po daily PREDNISONE 41236384621 No Longer Active Harinder Hernandez DO Active PREDNISONE 20 MG TAB 2 tabs daily for 4 days, 1 tab daily for 4 days, 1/2 tab daily for 4 days PREDNISONE 29387880697 No Longer Active Harinder Hernandez DO Active AZITHROMYCIN 250 MG TABS 2 po qd x 1 day, then 1 po qd x 4 days AZITHROMYCIN 73730156760 No Longer Active Harinder Hernandez DO Active PREDNISONE 20 MG TAB 3 tabs today, then 1 tab twice daily for 3 day, then one daily for three days PREDNISONE 32929014394 No Longer Active Harinder Hernanedz DO Active NIFEDIAC CC 30 MG [id number] 1 tablet daily for raynaud's syndrome NIFEDIPINE 64578140339 No Longer Active Tawnya Pardo MA Active AMBIEN 10 MG TAB 1/2 tab by mouth at bedtime as needed for sleep ZOLPIDEM TARTRATE 73555538226 Active Harinder Hernandez DO Active CLONAZEPAM 1 MG TABS 1 tablet at bedtime for insomnia and restless legs 09/14 CLONAZEPAM 12119678065 Active Harinder Hernandez DO Active CLONAZEPAM 0.5 MG TABS 1 tab po daily CLONAZEPAM 21074184254 No Longer Active Harinder Hernandez DO Active PREDNISONE 10 MG TAB 1 tablet daily for COPD PREDNISONE 13182198829 Active Tawnya Pardo MA Active PROAIR HFA 108 (90 BASE) MCG/ACT AERS 2 puffs four times a day as needed 2012 ALBUTEROL SULFATE 39625625133 Active Tawnya Pardo MA Active FLOVENT HFA 110 MCG/ACT AERO 2 puffs inhaled b.i.d. FLUTICASONE PROPIONATE HFA 18671654905 Active Tawnya Pardo MA Active ACIPHEX 20 MG TBEC 1 tab po daily RABEPRAZOLE SODIUM 98770173306 Active Kaylah Newberry Active CLONAZEPAM 0.5 MG TABS 1 tab po daily CLONAZEPAM 0.5 MG TABS 677625 CLONAZEPAM Inactive PREDNISONE 20 MG TAB 3 tabs today, then 1 tab twice daily for 3 day, then one daily for three days PREDNISONE 20 MG TAB 292900 PREDNISONE Inactive PREDNISONE 20 MG TAB 2 tabs daily for 4 days, 1 tab daily for 4 days, 1/2 tab daily for 4 days PREDNISONE 20 MG TAB 058277 PREDNISONE Inactive PREDNISONE 10 MG TABS 1 tab po daily PREDNISONE 10 MG TABS 792757 PREDNISONE Inactive TYLENOL EXTRA STRENGTH 500 MG TABS as needed TYLENOL EXTRA STRENGTH 500 MG TABS 087626 ACETAMINOPHEN Inactive MUPIROCIN 2 % OINT apply to affected area BID x 14 days MUPIROCIN 2 % OINT 771856 MUPIROCIN Inactive MONTELUKAST SODIUM 10 MG TABS 1 tab po in the evening MONTELUKAST SODIUM 10 MG TABS 20010818 MONTELUKAST SODIUM Inactive BENZONATATE 100 MG CAPS 1 cap po TID PRN BENZONATATE 100 MG CAPS 19730321 BENZONATATE Inactive NEURONTIN 300 MG CAP 1 cap by mouth three times daily for restless leg 06/22 NEURONTIN 300 MG CAP 656220 GABAPENTIN Inactive LEVAQUIN 500 MG TAB 1 tablet by mouth daily LEVAQUIN 500 MG TAB 650698 LEVOFLOXACIN Inactive PREDNISONE 20 MG TAB 1 TID x 2 days, then 1 BID x 3 days, then 1 Daily x 3 days, then stop PREDNISONE 20 MG TAB 074130 PREDNISONE Inactive POTASSIUM CHLORIDE ER 10 MEQ CR-TABS take 1 tab po daily POTASSIUM CHLORIDE ER 10 MEQ CR-TABS POTASSIUM CHLORIDE Inactive PREDNISONE 20 MG TAB 1 tab twice daily for 3 day, then one daily for three days PREDNISONE 20 MG TAB 209780 PREDNISONE Inactive TESSALON PERLES 100 MG CAP 1 to 2 tablets by mouth 3 times daily as needed for cough TESSALON PERLES 100 MG CAP 745018 BENZONATATE Inactive POTASSIUM CHLORIDE CR 10 MEQ CPCR 1 capsule by mouth daily 02/14 POTASSIUM CHLORIDE CR 10 MEQ CPCR POTASSIUM CHLORIDE Inactive NITROSTAT 0.4 MG SUBL 1 tab under tongueas needed for chest pain ( may take 3 total, 5 min apart, then call 911) NITROSTAT 0.4 MG SUBL 112851 NITROGLYCERIN Inactive LOVASTATIN 40 MG TABS 1 pill by mouth nightly for cholesterol LOVASTATIN 40 MG TABS 218319 LOVASTATIN Inactive CEFDINIR 300 MG ORAL CAPS take 1 cap po bid x 10 days CEFDINIR 300 MG ORAL CAPS 754309 CEFDINIR Inactive ACEBUTOLOL HCL 200 MG CAPS 1 cap in the morning and 2 caps in the evening ACEBUTOLOL HCL 200 MG CAPS 156261 ACEBUTOLOL HCL Inactive VENTOLIN HFA 108 (90 BASE) MCG/ACT AERS 2 -4 puffs four times a day PRN 2013 VENTOLIN HFA 108 (90 BASE) MCG/ACT AERS ALBUTEROL SULFATE Inactive LEVAQUIN 500 MG ORAL TABS Take 1 tab po daily x 8 days LEVAQUIN 500 MG ORAL TABS 995136 LEVOFLOXACIN Inactive PREDNISONE 20 MG TAB 2 tabs daily for 4 days, 1 tab daily for 4 days, 1/2 tab daily for 4 days PREDNISONE 20 MG TAB 005935 PREDNISONE Inactive LOVASTATIN 40 MG ORAL TABS Take 1 tab po every hs LOVASTATIN 40 MG ORAL TABS 987886 LOVASTATIN Inactive DILAUDID 2 MG ORAL TABS Take 1/2 tab po every 4 hours as needed for pain 2014 DILAUDID 2 MG ORAL TABS 946098 HYDROMORPHONE HCL Inactive AMITRIPTYLINE HCL 25 MG ORAL TABS 1 q hs prn AMITRIPTYLINE HCL 25 MG ORAL TABS 708371 AMITRIPTYLINE HCL Inactive MECLIZINE HCL 25 MG TAB 1 tablet three times daily for 3 days, then 1/2 tab three times daily for 3 days. MECLIZINE HCL 25 MG TAB 719058 MECLIZINE HCL Inactive AMLODIPINE BESYLATE 5 MG ORAL TABS Take 1 tab po daily AMLODIPINE BESYLATE 5 MG ORAL TABS 697986 AMLODIPINE BESYLATE Inactive TOPIRAMATE 25 MG TABS 1 tab po BID TOPIRAMATE 25 MG TABS 501425 TOPIRAMATE Inactive PREDNISONE 20 MG TAB 1 tablet twice daily for 2 days, then 1 tablet once daily for 2 days PREDNISONE 20 MG TAB 517437 PREDNISONE Inactive PREDNISONE 20 MG TAB 1 tab twice daily for 3 day, then one daily for three days PREDNISONE 20 MG TAB 879229 PREDNISONE Inactive AZITHROMYCIN 250 MG TABS 2 po qd x 1 day, then 1 po qd x 4 days AZITHROMYCIN 250 MG TABS 0144486 AZITHROMYCIN Inactive AZITHROMYCIN 250 MG TABS 2 po qd x 1 day, then 1 po qd x 4 days AZITHROMYCIN 250 MG TABS 1344770 AZITHROMYCIN Inactive PREDNISONE 20 MG TAB 2 po qd x 5 days PREDNISONE 20 MG TAB 506945 PREDNISONE Inactive Vital Signs Date Name Value [...] Panel - Chemistry sodium, serum 137 mmol/L 754-677 4371/01/03 potassium, serum 3.4 mmol/L 3.5-5.2 chloride, serum [...] Magnesium - Chemistry cholesterol, serum 180 mg/dL 896-348 2980/08/08 triglyceride, serum, fasting 92 mg/dL 30-200 HDL cholesterol, serum 66 mg/dL 32-96 LDL cholesterol, serum 96 mg/dL 0-130 sodium, serum 142 mmol/L 630-477 8889/08/08 carbon dioxide, venous blood 27.4 mmol/L 21.0-32.0 [...] 10.0-20.0 Encounters Code Encounter Date Provider Facility CPT-14938 Level 3 Est. Patient 09:58:58 CDT Harinder Cr [facility] CPT-75486 Level 3 Est. Patient 12:37:21 CDT Harinder Cr [facility] CPT-54411 Level 3 Est. Patient 18:37:17 CDT Harinder [facility] CPT-02128 Level 4 Est. Patient 11:15:54 CDT Nettie Newberry [facility] CPT-81831 Level 3 Est. Patient 16:42:24 CDT Harinder Cr [facility] CPT-10398 Level 3 Est. Patient 15:03:36 CDT Harinder Cr [facility] CPT-23253 Level 3 Est. Patient 15:03:20 CDT Harinder Cr [facility] CPT-09180 Level 3 Est. Patient 12:14:34 CDT Harinder Cr [facility] CPT-55153 Level 3 Est. Patient 13:47:15 CDT Harinder Cr [facility] CPT-09044 Level 3 Est. Patient 14:08:24 CDT Harinder Hernandez [facility] CPT-59697 Level 3 Est. Patient 10:07:15 CDT Harinder Hernandez [facility] CPT-95643 Level 3 Est. Patient 10:06:59 CDT Harinder Hernandez [facility] CPT-20629 Level 3 Est. Patient 15:53:29 CDT Jae Morgan MD [facility] CPT-01768 Level 3 Est. Patient 17:19:04 CDT Harinder Hernandez [facility] CPT-91488 Level 3 Est. Patient 11:13:01 CDT Harinder Hernandez [facility] CPT-95892 Level 3 Est. Patient 09:03:58 CDT Harinder Hernandez [facility] CPT-55939 Level 3 Est. Patient 14:46:45 [employer] Harinder Hernandez [facility] CPT-15945 Level 3 Est. Patient 09:35:49 EMBLEM [employer] Harinder Hernandez [facility] CPT-25898 Level 3 Est. Patient 09:29:37 EMBLEM [employer] Harinder Hernandez [facility] CPT-07573 Level 3 Est. Patient 15:51:07 CDT Harinder Hernandez [facility] CPT-21020 Level 3 Est. Patient 18:13:13 CDT Harinder Hernandez [facility] CPT-39637 Level 3 Est. Patient 10:44:19 CDT Harinder Hernandez [facility] CPT-90165 Level 4 Est. Patient 10:07:19 EMBLEM [employer] Harinder Hernandez [facility] CPT-79155 Level 3 Est. Patient 15:59:32 EMBLE[employer] Harinder Cr [facility] Procedures Code Procedure Name Date Entry Date Standard Description CPT-00349 BMP - LAB USE ONLY 16:45:09 [employer] CPT-41001 Port a cath flush 12:00:13 EMBLEM [employer] CPT-TCMM Transitional Care Mgmt-Moderate 11:20:16 EMBLEM [employer] CPT-26949 First Vx - Ix admin for Medicare patients 17:35:15 CDT CPT-69635 Fluzone Preservative Free Intramuscular Suspension 17:35 :15 CDT CPT-92967 Microalbumin - LAB USE ONLY 11:52:05 CDT CPT-TCMM Transitional Care Mgmt-Moderate 11:33:57 CDT CPT-90889 No Charge Offi Visit 14:11:29 CDT CPT-91731 Magnesium - LAB USE ONLY 10:45:44 CDT CPT-05728 Lipid - LAB USE ONLY 10:45:44 CDT CPT-81554 CBC - LAB USE ONLY 10:45:44 CDT CPT-52287 Venipuncture Draw Fee 10:45:43 CDT CPT-26868 Venipuncture Draw Fee 18:21:27 CDT CPT-JTINJ Asp/Joint Injection 18:38:04 CDT CPT-54722 Immunization Each Additional Inj 17:38:04 CDT CPT-88947 Immunization Single Admin 17:38:04 CDT CPT-07368 Prevnar 13 17:38:04 CDT CPT-93732 Fluzone Quadrivalent preservative free (>=3yrs.) 17:38: 04 CDT CPT-18982 No Charge Offi Visit 11:14:03 CDT CPT-52790 Chest 2V Frontal and Lat 14:00:18 CDT CPT-OV Office Visit 16:10:28 CDT CPT-JTINJ Asp/Joint Injection 09:03:57 CDT CPT-Cryo Cryotherapy 09:35:49 EMBLEM MAKER CPT-JTINJ Asp/Joint Injection 09:34:45 EMBLEM MAKER CPT-J2930 Solu Medrol 125 mg (Methyl Prednisolone Sodium Succinate) 20:37:27 CDT CPT-98424 Abx/Therapy Injection 20:37:27 CDT CPT-05559 Port a cath flush 08:15:51 CDT CPT-73263 Port a cath flush 09:54:16 CDT CPT-96789 Port a cath flush 09:38:02 CDT CPT-65160 Port a cath flush 11:00:27 EMBLEM MAKER
--- OUTSIDE RECORDS SUMMARY | 2017-12-29 01:05 | XMS REPORT | Clinical Summary ---
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 NIFEDIPINE 77080956743 Active Harinder Hernandez DO Active AMLODIPINE BESYLATE 5 MG TABS 1 tablet by mouth daily AMLODIPINE BESYLATE 70279100817 No Longer Active Harinder Hernandez DO Active TOPAMAX 25 MG ORAL TABS 1 tab po BID TOPIRAMATE 90050844425 Active Kortney Mccain Active FLUTICASONE PROPIONATE 50 MCG/ACT SUSP 2 sprays per nostril daily PRN Allergies FLUTICASONE PROPIONATE 66207350274 Active Kortney Mccain Active NIFEDIPINE ER 30 MG ORAL [id number] 1 daily NIFEDIPINE 37913561666 No Longer Active Harinder Hernandez DO Active POTASSIUM CHLORIDE 20 MEQ ORAL PACK Take 1 tablet by mouth daily POTASSIUM CHLORIDE 99804510403 Active Ciera Pimentel Active FLOVENT HFA 110 MCG/ACT AERO 2 puffs inhaled b.i.d. FLUTICASONE PROPIONATE HFA 50098417306 Active Harinder Hernandez DO Active POTASSIUM CHLORIDE CR 10 MEQ CPCR 1 capsule by mouth daily POTASSIUM CHLORIDE 30917086569 Active Harinder Hernandez DO Active EPIPEN 2-BRUNA 0.3 MG/0.3ML INJ SOAJ 1 INJ NEEDED EPINEPHRINE 09635157210 Active Harinder Hernandez DO Active PREDNISONE 20 MG TAB 1 tab twice daily for 3 day, then one daily for three days PREDNISONE 07626296118 No Longer Active Harinder Hernandez DO Active PREDNISONE 20 MG TAB 1 tablet twice daily for 2 days, then 1 tablet once daily for 2 days PREDNISONE 58934860041 No Longer Active Harinder Hernandez DO Active ASMANEX 120 METERED DOSES 220 MCG/INH INH AEPB 2 puffs orally twice daily MOMETASONE FUROATE 54710183819 Active Jeri Sosa RPT,RMA Active TOPIRAMATE 25 MG TABS 1 tab po BID TOPIRAMATE 00157809244 No Longer Active Nettie Newberry APRN Active AMLODIPINE BESYLATE 5 MG ORAL TABS Take 1 tab po daily AMLODIPINE BESYLATE 84528400947 No Longer Active Nettie Newberry APRN Active MECLIZINE HCL 25 MG TAB 1 tablet three times daily for 3 days, then 1/2 tab three times daily for 3 days. MECLIZINE HCL 59459652193 No Longer Active Nettie Newberry APRN Active AMITRIPTYLINE HCL 25 MG ORAL TABS 1 q hs prn AMITRIPTYLINE HCL 36510197300 No Longer Active Nettie Newberry APRN Active DILAUDID 2 MG ORAL TABS Take 1/2 tab po every 4 hours as needed for pain 2014 HYDROMORPHONE HCL 77087040976 No Longer Active Nettie Newberry APRN Active CLOPIDOGREL BISULFATE 75 MG ORAL TABS 1 tab by mouth once daily CLOPIDOGREL BISULFATE 04955507665 Active Harinder Hernandez DO Active ATORVASTATIN CALCIUM 10 MG ORAL TABS 1 at bedtime ATORVASTATIN CALCIUM 07706275429 Active Tawnya Pardo MA Active LOVASTATIN 40 MG ORAL TABS Take 1 tab po every hs LOVASTATIN 66414173437 No Longer Active Harinder Hernandez DO Active PREDNISONE 20 MG TAB 2 tabs daily for 4 days, 1 tab daily for 4 days, 1/2 tab daily for 4 days PREDNISONE 52771944191 No Longer Active Harinder Hernandez DO Active LEVAQUIN 500 MG ORAL TABS Take 1 tab po daily x 8 days LEVOFLOXACIN 96300472394 No Longer Active Harinder Hernandez DO Active VENTOLIN HFA 108 (90 BASE) MCG/ACT AERS 2 -4 puffs four times a day PRN 2013 ALBUTEROL SULFATE 79586095285 No Longer Active Jeri Sosa RPT,RMA Active ACEBUTOLOL HCL 200 MG CAPS 1 cap in the morning and 2 caps in the evening ACEBUTOLOL HCL 06894427710 No Longer Active Harinder Hernandez DO Active CEFDINIR 300 MG ORAL CAPS take 1 cap po bid x 10 days CEFDINIR 87304412697 No Longer Active Harinder Hernandez DO Active LOVASTATIN 40 MG TABS 1 pill by mouth nightly for cholesterol LOVASTATIN 05946151188 No Longer Active Nettie Newberry APRN Active NITROSTAT 0.4 MG SUBL 1 tab under tongueas needed for chest pain ( may take 3 total, 5 min apart, then call 911) NITROGLYCERIN 75940680389 No Longer Active Nettie Newberry APRN Active POTASSIUM CHLORIDE CR 10 MEQ CPCR 1 capsule by mouth daily 02/14 POTASSIUM CHLORIDE 73443279598 No Longer Active Nettie Newberry APRN Active TESSALON PERLES 100 MG CAP 1 to 2 tablets by mouth 3 times daily as needed for cough BENZONATATE 75780262926 No Longer Active Nettie Newberry APRN Active THEOPHYLLINE ER 200 MG ORAL [id number] Take 1 tab every 12 hours THEOPHYLLINE 81507850217 Active Tawnya Pardo MA Active PREDNISONE 20 MG TAB 2 po qd x 5 days PREDNISONE 51232848230 No Longer Active Jae Morgan MD Active AZITHROMYCIN 250 MG TABS 2 po qd x 1 day, then 1 po qd x 4 days AZITHROMYCIN 59918409714 No Longer Active Jae Morgan MD Active PREDNISONE 20 MG TAB 1 tab twice daily for 3 day, then one daily for three days PREDNISONE 18600538622 No Longer Active Jae Morgan MD Active SINGULAIR 10 MG TABS 1 pill by mouth every evening for breathing. MONTELUKAST SODIUM 88078276626 Active Tawnya Pardo MA Active TYLENOL 325 MG TAB 3 by mouth q4h as needed ACETAMINOPHEN 00706219979 Active Harinder Hernandez DO Active POTASSIUM CHLORIDE ER 10 MEQ CR-TABS take 1 tab po daily POTASSIUM CHLORIDE 04316697858 No Longer Active Harinder Hernandez DO Active PREDNISONE 20 MG TAB 1 TID x 2 days, then 1 BID x 3 days, then 1 Daily x 3 days, then stop PREDNISONE 36830225913 No Longer Active Jillina Frazell ORTHOPEDIC SPECIALIST Active LEVAQUIN 500 MG TAB 1 tablet by mouth daily LEVOFLOXACIN 78802974746 No Longer Active Jillina Frazell ORTHOPEDIC SPECIALIST Active NEURONTIN 300 MG CAP 1 cap by mouth three times daily for restless leg 06/22 GABAPENTIN 29471848171 No Longer Active Harinder Hernandez DO Active BENZONATATE 100 MG CAPS 1 cap po TID PRN BENZONATATE 04546456674 No Longer Active Harinder Hernandez DO Active MONTELUKAST SODIUM 10 MG TABS 1 tab po in the evening MONTELUKAST SODIUM 05954644949 No Longer Active Harinder Hernandez DO Active MUPIROCIN 2 % OINT apply to affected area BID x 14 days MUPIROCIN 38995312081 No Longer Active Harinder Hernandez DO Active TYLENOL EXTRA STRENGTH 500 MG TABS as needed ACETAMINOPHEN 38470994075 No Longer Active Harinder Hernandez DO Active PREDNISONE 10 MG TABS 1 tab po daily PREDNISONE 93024273780 No Longer Active Harinder Hernandez DO Active PREDNISONE 20 MG TAB 2 tabs daily for 4 days, 1 tab daily for 4 days, 1/2 tab daily for 4 days PREDNISONE 25098542672 No Longer Active Harinder Hernandez DO Active AZITHROMYCIN 250 MG TABS 2 po qd x 1 day, then 1 po qd x 4 days AZITHROMYCIN 01313121366 No Longer Active Harinder Hernandez DO Active PREDNISONE 20 MG TAB 3 tabs today, then 1 tab twice daily for 3 day, then one daily for three days PREDNISONE 35677529933 No Longer Active Harinder Hernandez DO Active NIFEDIAC CC 30 MG [id number] 1 tablet daily for raynaud's syndrome NIFEDIPINE 05570607041 No Longer Active Tawnya Pardo MA Active AMBIEN 10 MG TAB 1/2 tab by mouth at bedtime as needed for sleep ZOLPIDEM TARTRATE 31644240525 Active Kortney Mccain Active CLONAZEPAM 1 MG TABS 1 tablet at bedtime for insomnia and restless legs 09/14 CLONAZEPAM 42332079504 Active Harinder Hernandez DO Active CLONAZEPAM 0.5 MG TABS 1 tab po daily CLONAZEPAM 41438720089 No Longer Active Harinder Hernandez DO Active PREDNISONE 10 MG TAB 1 tablet daily for COPD PREDNISONE 13455459086 Active Ciera Pimentel Active PROAIR HFA 108 (90 BASE) MCG/ACT AERS 2 puffs four times a day as needed 2012 ALBUTEROL SULFATE 63361165304 Active Harinder Hernandez DO Active FLOVENT HFA 110 MCG/ACT AERO 2 puffs inhaled b.i.d. FLUTICASONE PROPIONATE HFA 00036352339 Active Kortney Mccain Active ACIPHEX 20 MG TBEC 1 tab po daily RABEPRAZOLE SODIUM 05403059744 Active Kaylah Newberry Active CLONAZEPAM 0.5 MG TABS 1 tab po daily CLONAZEPAM 0.5 MG TABS 750431 CLONAZEPAM Inactive PREDNISONE 20 MG TAB 3 tabs today, then 1 tab twice daily for 3 day, then one daily for three days PREDNISONE 20 MG TAB 878914 PREDNISONE Inactive PREDNISONE 20 MG TAB 2 tabs daily for 4 days, 1 tab daily for 4 days, 1/2 tab daily for 4 days PREDNISONE 20 MG TAB 186604 PREDNISONE Inactive PREDNISONE 10 MG TABS 1 tab po daily PREDNISONE 10 MG TABS 966074 PREDNISONE Inactive TYLENOL EXTRA STRENGTH 500 MG TABS as needed TYLENOL EXTRA STRENGTH 500 MG TABS 101956 ACETAMINOPHEN Inactive MUPIROCIN 2 % OINT apply to affected area BID x 14 days MUPIROCIN 2 % OINT 147677 MUPIROCIN Inactive MONTELUKAST SODIUM 10 MG TABS 1 tab po in the evening MONTELUKAST SODIUM 10 MG TABS 20010818 MONTELUKAST SODIUM Inactive BENZONATATE 100 MG CAPS 1 cap po TID PRN BENZONATATE 100 MG CAPS 501093 BENZONATATE Inactive NEURONTIN 300 MG CAP 1 cap by mouth three times daily for restless leg 06/22 NEURONTIN 300 MG CAP 313737 GABAPENTIN Inactive LEVAQUIN 500 MG TAB 1 tablet by mouth daily LEVAQUIN 500 MG TAB 691618 LEVOFLOXACIN Inactive PREDNISONE 20 MG TAB 1 TID x 2 days, then 1 BID x 3 days, then 1 Daily x 3 days, then stop PREDNISONE 20 MG TAB 245247 PREDNISONE Inactive POTASSIUM CHLORIDE ER 10 MEQ CR-TABS take 1 tab po daily POTASSIUM CHLORIDE ER 10 MEQ CR-TABS POTASSIUM CHLORIDE Inactive PREDNISONE 20 MG TAB 1 tab twice daily for 3 day, then one daily for three days PREDNISONE 20 MG TAB 913521 PREDNISONE Inactive TESSALON PERLES 100 MG CAP 1 to 2 tablets by mouth 3 times daily as needed for cough TESSALON PERLES 100 MG CAP 455371 BENZONATATE Inactive POTASSIUM CHLORIDE CR 10 MEQ CPCR 1 capsule by mouth daily 02/14 POTASSIUM CHLORIDE CR 10 MEQ CPCR POTASSIUM CHLORIDE Inactive NITROSTAT 0.4 MG SUBL 1 tab under tongueas needed for chest pain ( may take 3 total, 5 min apart, then call 911) NITROSTAT 0.4 MG SUBL 516250 NITROGLYCERIN Inactive LOVASTATIN 40 MG TABS 1 pill by mouth nightly for cholesterol LOVASTATIN 40 MG TABS 032341 LOVASTATIN Inactive CEFDINIR 300 MG ORAL CAPS take 1 cap po bid x 10 days CEFDINIR 300 MG ORAL CAPS 942820 CEFDINIR Inactive ACEBUTOLOL HCL 200 MG CAPS 1 cap in the morning and 2 caps in the evening ACEBUTOLOL HCL 200 MG CAPS 337401 ACEBUTOLOL HCL Inactive VENTOLIN HFA 108 (90 BASE) MCG/ACT AERS 2 -4 puffs four times a day PRN 2013 VENTOLIN HFA 108 (90 BASE) MCG/ACT AERS ALBUTEROL SULFATE Inactive LEVAQUIN 500 MG ORAL TABS Take 1 tab po daily x 8 days LEVAQUIN 500 MG ORAL TABS 568364 LEVOFLOXACIN Inactive PREDNISONE 20 MG TAB 2 tabs daily for 4 days, 1 tab daily for 4 days, 1/2 tab daily for 4 days PREDNISONE 20 MG TAB 777398 PREDNISONE Inactive LOVASTATIN 40 MG ORAL TABS Take 1 tab po every hs LOVASTATIN 40 MG ORAL TABS 128884 LOVASTATIN Inactive DILAUDID 2 MG ORAL TABS Take 1/2 tab po every 4 hours as needed for pain 2014 DILAUDID 2 MG ORAL TABS 935245 HYDROMORPHONE HCL Inactive AMITRIPTYLINE HCL 25 MG ORAL TABS 1 q hs prn AMITRIPTYLINE HCL 25 MG ORAL TABS 877205 AMITRIPTYLINE HCL Inactive MECLIZINE HCL 25 MG TAB 1 tablet three times daily for 3 days, then 1/2 tab three times daily for 3 days. MECLIZINE HCL 25 MG TAB 673217 MECLIZINE HCL Inactive AMLODIPINE BESYLATE 5 MG ORAL TABS Take 1 tab po daily AMLODIPINE BESYLATE 5 MG ORAL TABS 265938 AMLODIPINE BESYLATE Inactive TOPIRAMATE 25 MG TABS 1 tab po BID TOPIRAMATE 25 MG TABS 229856 TOPIRAMATE Inactive PREDNISONE 20 MG TAB 1 tablet twice daily for 2 days, then 1 tablet once daily for 2 days PREDNISONE 20 MG TAB 569670 PREDNISONE Inactive PREDNISONE 20 MG TAB 1 tab twice daily for 3 day, then one daily for three days PREDNISONE 20 MG TAB 515479 PREDNISONE Inactive NIFEDIPINE ER 30 MG ORAL [id number] 1 daily NIFEDIPINE ER 30 MG ORAL [id number] NIFEDIPINE Inactive AMLODIPINE BESYLATE 5 MG TABS 1 tablet by mouth daily AMLODIPINE BESYLATE 5 MG TABS 530051 AMLODIPINE BESYLATE Inactive AZITHROMYCIN 250 MG TABS 2 po qd x 1 day, then 1 po qd x 4 days AZITHROMYCIN 250 MG TABS 9500009 AZITHROMYCIN Inactive AZITHROMYCIN 250 MG TABS 2 po qd x 1 day, then 1 po qd x 4 days AZITHROMYCIN 250 MG TABS 4629238 AZITHROMYCIN Inactive PREDNISONE 20 MG TAB 2 po qd x 5 days PREDNISONE 20 MG TAB 026389 PREDNISONE Inactive Vital Signs Date Name Value [...] pressure, diastolic - 8462-4 61 mm[Hg] BP daan blood pressure, systolic - 8480-6 96 mm[Hg] [...] Panel - Chemistry sodium, serum 137 mmol/L 656-648 3204/01/03 potassium, serum 3.4 mmol/L 3.5-5.2 chloride, serum [...] Magnesium - Chemistry cholesterol, serum 180 mg/dL 826-820 1485/08/08 triglyceride, serum, fasting 92 mg/dL 30-200 HDL cholesterol, serum 66 mg/dL 32-96 LDL cholesterol, serum 96 mg/dL 0-130 sodium, serum 142 mmol/L 121-639 1357/08/08 carbon dioxide, venous blood 27.4 mmol/L 21.0-32.0 [...] 10.0-20.0 Encounters Code Encounter Date Provider Facility CPT-95035 Level 4 Est. Patient 10:19:23 CDT Harinder Cr [facility] CPT-61082 Level 3 Est. Patient 09:58:58 CDT Harinder Cr [facility] CPT-01782 Level 3 Est. Patient 12:37:21 CDT Harinder Cr [facility] CPT-53743 Level 3 Est. Patient 18:37:17 CDT [facility] CPT-62598 Level 4 Est. Patient 11:15:54 CDT Nettie Roh[facility] CPT-70495 Level 3 Est. Patient 16:42:24 CDT Harinder Cr David [facility] CPT-45108 Level 3 Est. Patient 15:03:36 CDT Harinder Cr David [facility] CPT-19951 Level 3 Est. Patient 15:03:20 CDT Harinder Cr David [facility] CPT-51130 Level 3 Est. Patient 12:14:34 CDT Harinder Cr David [facility] CPT-59633 Level 3 Est. Patient 13:47:15 CDT Harinder Cr David [facility] CPT-97763 Level 3 Est. Patient 14:08:24 CDT Harinder Cr David [facility] CPT-22939 Level 3 Est. Patient 10:07:15 CDT Harinder Cr David [facility] CPT-85540 Level 3 Est. Patient 10:06:59 CDT Harinder Hernandez [facility] CPT-63045 Level 3 Est. Patient 15:53:29 CDT Jae Morgan MD [facility] CPT-79984 Level 3 Est. Patient 17:19:04 CDT Harinder Hernandez [facility] CPT-29640 Level 3 Est. Patient 11:13:01 CDT Harinder Hernandez [facility] CPT-19408 Level 3 Est. Patient 09:03:58 CDT Harinder Cr David [facility] CPT-52477 Level 3 Est. Patient 14:46:45 [employer]STRUCTION [employer] Harinder Hernandez [facility] CPT-45496 Level 3 Est. Patient 09:35:49 [employer]IP CONSTRUCTION TE[employer]ER Harinder Hernandez [facility] CPT-23852 Level 3 Est. Patient 09:29:37 SHIP CONSTRUCTION TEACHER Harinder Hernandez [facility] CPT-00564 Level 3 Est. Patient 15:51:07 CDT Harinder Hernandez [facility] CPT-28509 Level 3 Est. Patient 18:13:13 CDT Harinder Hernandez [facility] CPT-53456 Level 3 Est. Patient 10:44:19 CDT Harinder Hernandez [facility] CPT-84583 Level 4 Est. Patient 10:07:19 [employer]IP CONSTRUCTION TE[employer]ER Harinder Cr [facility] CPT-85701 Level 3 Est. Patient 15:59:32 SHIP CONSTRUCTION TEACHER Harinder Cr [facility] Procedures Code Procedure Name Date Entry Date Standard Description CPT-48783 Hip, complete, 2-3 views - XRAY USE ONLY 10:28:40 CDT CPT-05553 BMP - LAB USE ONLY 16:45:09 [employer] CPT-45759 Port a cath flush 12:00:13 [employer]STRUCTION TE[employer]ER CPT-TCMM Transitional Care Mgmt-Moderate 11:20:16 [employer]STRUCTION TE[employer]ER CPT-83368 First Vx - Ix admin for Medicare patients 17:35:15 CDT CPT-48591 Fluzone Preservative Free Intramuscular Suspension 17:35 :15 CDT CPT-61020 Microalbumin - LAB USE ONLY 11:52:05 CDT CPT-TCMM Transitional Care Mgmt-Moderate 11:33:57 CDT CPT-32349 No Charge Offi Visit 14:11:29 CDT CPT-52305 Magnesium - LAB USE ONLY 10:45:44 CDT CPT-91839 Lipid - LAB USE ONLY 10:45:44 CDT CPT-49281 CBC - LAB USE ONLY 10:45:44 CDT CPT-70985 Venipuncture Draw Fee 10:45:43 CDT CPT-64423 Venipuncture Draw Fee 18:21:27 CDT CPT-JTINJ Asp/Joint Injection 18:38:04 CDT CPT-73195 Immunization Each Additional Inj 17:38:04 CDT CPT-12268 Immunization Single Admin 17:38:04 CDT CPT-44860 Prevnar 13 17:38:04 CDT CPT-36423 Fluzone Quadrivalent preservative free (>=3yrs.) 17:38: 04 CDT CPT-63455 No Charge Offi Visit 11:14:03 CDT CPT-53224 Chest 2V Frontal and Lat 14:00:18 CDT CPT-OV Office Visit 16:10:28 CDT CPT-JTINJ Asp/Joint Injection 09:03:57 CDT CPT-Cryo Cryotherapy 09:35:49 [employer]CTION TE[employer]ER CPT-JTINJ Asp/Joint Injection 09:34:45 [employer] CONSTRUCTION TE[employer]ER CPT-J2930 Solu Medrol 125 mg (Methyl Prednisolone Sodium Succinate) 20:37:27 CDT CPT-13485 Abx/Therapy Injection 20:37:27 CDT CPT-14914 Port a cath flush 08:15:51 CDT CPT-42530 Port a cath flush 09:54:16 CDT CPT-43200 Port a cath flush 09:38:02 CDT CPT-92804 Port a cath flush 11:00:27 [employer] CONSTRUCTION TE[employer]ER
--- OUTSIDE RECORDS SUMMARY | 2017-12-29 01:06 | XMS REPORT | Clinical Summary ---
Author Author Admin, QIE Organization [facility] [employer] Address Unknown Phone Unavailable Allergies, Adverse Reactions, [...] Harinder Hernandez DO LATEX Critical Active Harinder Hernandze DO IBUPROFEN Critical Active Harinder Hernandez DO [...] Hernandez DO Biceps tendinitis, left ICD-726.12 Inactive Hrainder Hernandez DO Nausea and vomiting ICD-787.01 Inactive [...] bursitis, left ICD-726.5 Inactive Harinder Cr David DO Medication List Medication Instructions Start Date Stop Date Generic Name NDC Status Provider Patient Instruction PREDNISONE 20 MG TAB 1 tab twice daily for 3 day, then one daily for three days PREDNISONE [id number] Active Harinder Hernandez DO Active PREDNISONE 20 MG TAB 1 tablet twice daily for 2 days, then 1 tablet once daily for 2 days PREDNISONE 81083446544 No Longer Active Harinder Hernandez DO Active ASMANEX 120 METERED DOSES 220 MCG/INH INH AEPB 2 puffs orally twice daily MOMETASONE FUROATE 62390909574 Active Jeri Sosa RPT,RMA Active NIFEDIPINE ER 30 MG ORAL [id number] 1 daily NIFEDIPINE 33435897571 Active Tawnya Pardo MA Active TOPIRAMATE 25 MG TABS 1 tab po BID TOPIRAMATE 23062407868 No Longer Active Nettie Newberry APRN Active AMLODIPINE BESYLATE 5 MG ORAL TABS Take 1 tab po daily AMLODIPINE BESYLATE 69994198926 No Longer Active Nettie Newberry APRN Active MECLIZINE HCL 25 MG TAB 1 tablet three times daily for 3 days, then 1/2 tab three times daily for 3 days. MECLIZINE HCL 76493104017 No Longer Active Nettie Newberry APRN Active AMITRIPTYLINE HCL 25 MG ORAL TABS 1 q hs prn AMITRIPTYLINE HCL 17528900178 No Longer Active Nettie Newberry APRN Active DILAUDID 2 MG ORAL TABS Take 1/2 tab po every 4 hours as needed for pain 2014 HYDROMORPHONE HCL 70491101847 No Longer Active Nettie Newberry APRN Active CLOPIDOGREL BISULFATE 75 MG ORAL TABS 1 tab by mouth once daily CLOPIDOGREL BISULFATE 14150242314 Active Jeri Sosa RPT,RMA Active ATORVASTATIN CALCIUM 10 MG ORAL TABS 1 at bedtime ATORVASTATIN CALCIUM 64534591547 Active Jeri Sosa RPT,RMA Active LOVASTATIN 40 MG ORAL TABS Take 1 tab po every hs LOVASTATIN 10722407531 No Longer Active Harinder Hernandez DO Active PREDNISONE 20 MG TAB 2 tabs daily for 4 days, 1 tab daily for 4 days, 1/2 tab daily for 4 days PREDNISONE 59989598755 No Longer Active Harinder Hernandez DO Active LEVAQUIN 500 MG ORAL TABS Take 1 tab po daily x 8 days LEVOFLOXACIN 95138219624 No Longer Active Harinder Hernandez DO Active VENTOLIN HFA 108 (90 BASE) MCG/ACT AERS 2 -4 puffs four times a day PRN 2013 ALBUTEROL SULFATE 71878418075 No Longer Active Jeri Sosa RPT,RMA Active ACEBUTOLOL HCL 200 MG CAPS 1 cap in the morning and 2 caps in the evening ACEBUTOLOL HCL 06984921044 No Longer Active Harinder Hernandez DO Active CEFDINIR 300 MG ORAL CAPS take 1 cap po bid x 10 days CEFDINIR 82537046588 No Longer Active Harinder Hernandez DO Active LOVASTATIN 40 MG TABS 1 pill by mouth nightly for cholesterol LOVASTATIN 37331517091 No Longer Active Nettie Newberry APRN Active NITROSTAT 0.4 MG SUBL 1 tab under tongueas needed for chest pain ( may take 3 total, 5 min apart, then call 911) NITROGLYCERIN 78597267069 No Longer Active Nettie Newberry APRN Active POTASSIUM CHLORIDE CR 10 MEQ CPCR 1 capsule by mouth daily 02/14 POTASSIUM CHLORIDE 25509151012 No Longer Active Nettie Newberry APRN Active TESSALON PERLES 100 MG CAP 1 to 2 tablets by mouth 3 times daily as needed for cough BENZONATATE 94952758471 No Longer Active Nettie Newberry APRN Active THEOPHYLLINE ER 200 MG ORAL [id number] Take 1 tab every 12 hours THEOPHYLLINE 50863469821 Active Jeri Sosa RPT,RMA Active PREDNISONE 20 MG TAB 2 po qd x 5 days PREDNISONE 22526034406 No Longer Active Jae Morgan MD Active AZITHROMYCIN 250 MG TABS 2 po qd x 1 day, then 1 po qd x 4 days AZITHROMYCIN 71545515605 No Longer Active Jae Morgan MD Active PREDNISONE 20 MG TAB 1 tab twice daily for 3 day, then one daily for three days PREDNISONE 50551230048 No Longer Active Jae Morgan MD Active SINGULAIR 10 MG TABS 1 pill by mouth every evening for breathing. MONTELUKAST SODIUM 30146316100 Active Tawnya Pardo MA Active TYLENOL 325 MG TAB 3 by mouth q4h as needed ACETAMINOPHEN 84772252585 Active Harinder Hernandez DO Active POTASSIUM CHLORIDE ER 10 MEQ CR-TABS take 1 tab po daily POTASSIUM CHLORIDE 79312086687 No Longer Active Harinder Hernandez DO Active PREDNISONE 20 MG TAB 1 TID x 2 days, then 1 BID x 3 days, then 1 Daily x 3 days, then stop PREDNISONE 84508420920 No Longer Active Jillina Frazell MEDICAL PHYSICIST Active LEVAQUIN 500 MG TAB 1 tablet by mouth daily LEVOFLOXACIN 61185689238 No Longer Active Jillina Frazell MEDICAL PHYSICIST Active NEURONTIN 300 MG CAP 1 cap by mouth three times daily for restless leg 06/22 GABAPENTIN 03302239590 No Longer Active Harinder Hernandez DO Active BENZONATATE 100 MG CAPS 1 cap po TID PRN BENZONATATE 71493240889 No Longer Active Harinder Hernandez DO Active MONTELUKAST SODIUM 10 MG TABS 1 tab po in the evening MONTELUKAST SODIUM 94473614053 No Longer Active Harinder Hernandez DO Active MUPIROCIN 2 % OINT apply to affected area BID x 14 days MUPIROCIN 18219748877 No Longer Active Harinder Hernandez DO Active TYLENOL EXTRA STRENGTH 500 MG TABS as needed ACETAMINOPHEN 88518453051 No Longer Active Harinder Hernandez DO Active PREDNISONE 10 MG TABS 1 tab po daily PREDNISONE 14949767965 No Longer Active Harinder Hernandez DO Active PREDNISONE 20 MG TAB 2 tabs daily for 4 days, 1 tab daily for 4 days, 1/2 tab daily for 4 days PREDNISONE 23122873776 No Longer Active Harnider Hernandez DO Active AZITHROMYCIN 250 MG TABS 2 po qd x 1 day, then 1 po qd x 4 days AZITHROMYCIN 39471756352 No Longer Active Harinder Hernandez DO Active PREDNISONE 20 MG TAB 3 tabs today, then 1 tab twice daily for 3 day, then one daily for three days PREDNISONE 65210811511 No Longer Active Harinder Hernandez DO Active NIFEDIAC CC 30 MG [id number] 1 tablet daily for raynaud's syndrome NIFEDIPINE 66217852687 No Longer Active Tawnya Pardo MA Active AMBIEN 10 MG TAB 1/2 tab by mouth at bedtime as needed for sleep ZOLPIDEM TARTRATE 35881748972 Active Harinder Hernandez DO Active CLONAZEPAM 1 MG TABS 1 tablet at bedtime for insomnia and restless legs 09/14 CLONAZEPAM 82370803342 Active Jeri Sosa RPT,RMA Active CLONAZEPAM 0.5 MG TABS 1 tab po daily CLONAZEPAM 78769856752 No Longer Active Harinder Hernandez DO Active PREDNISONE 10 MG TAB 1 tablet daily for COPD PREDNISONE 92670106198 Active Tawnya Pardo MA Active PROAIR HFA 108 (90 BASE) MCG/ACT AERS 2 puffs four times a day as needed 2012 ALBUTEROL SULFATE 22790721555 Active Tawnya Pardo MA Active FLOVENT HFA 110 MCG/ACT AERO 2 puffs inhaled b.i.d. FLUTICASONE PROPIONATE HFA 91866289430 Active Tawnya Pardo MA Active EPIPEN 0.3 MG/0.3ML URIEL DIRECTED EPINEPHRINE Active Jeri Sosa RPT,RMA Active ACIPHEX 20 MG TBEC 1 tab po daily RABEPRAZOLE SODIUM 15189012768 Active Tawnya Pardo MA Active CLONAZEPAM 0.5 MG TABS 1 tab po daily CLONAZEPAM 0.5 MG TABS 804963 CLONAZEPAM Inactive PREDNISONE 20 MG TAB 3 tabs today, then 1 tab twice daily for 3 day, then one daily for three days PREDNISONE 20 MG TAB 743600 PREDNISONE Inactive PREDNISONE 20 MG TAB 2 tabs daily for 4 days, 1 tab daily for 4 days, 1/2 tab daily for 4 days PREDNISONE 20 MG TAB 329470 PREDNISONE Inactive PREDNISONE 10 MG TABS 1 tab po daily PREDNISONE 10 MG TABS 805560 PREDNISONE Inactive TYLENOL EXTRA STRENGTH 500 MG TABS as needed TYLENOL EXTRA STRENGTH 500 MG TABS 632805 ACETAMINOPHEN Inactive MUPIROCIN 2 % OINT apply to affected area BID x 14 days MUPIROCIN 2 % OINT 844868 MUPIROCIN Inactive MONTELUKAST SODIUM 10 MG TABS 1 tab po in the evening MONTELUKAST SODIUM 10 MG TABS 20010818 MONTELUKAST SODIUM Inactive BENZONATATE 100 MG CAPS 1 cap po TID PRN BENZONATATE 100 MG CAPS 435495 BENZONATATE Inactive NEURONTIN 300 MG CAP 1 cap by mouth three times daily for restless leg 06/22 NEURONTIN 300 MG CAP 007128 GABAPENTIN Inactive LEVAQUIN 500 MG TAB 1 tablet by mouth daily LEVAQUIN 500 MG TAB 713563 LEVOFLOXACIN Inactive PREDNISONE 20 MG TAB 1 TID x 2 days, then 1 BID x 3 days, then 1 Daily x 3 days, then stop PREDNISONE 20 MG TAB 975406 PREDNISONE Inactive POTASSIUM CHLORIDE ER 10 MEQ CR-TABS take 1 tab po daily POTASSIUM CHLORIDE ER 10 MEQ CR-TABS POTASSIUM CHLORIDE Inactive PREDNISONE 20 MG TAB 1 tab twice daily for 3 day, then one daily for three days PREDNISONE 20 MG TAB 973662 PREDNISONE Inactive TESSALON PERLES 100 MG CAP 1 to 2 tablets by mouth 3 times daily as needed for cough TESSALON PERLES 100 MG CAP 869153 BENZONATATE Inactive POTASSIUM CHLORIDE CR 10 MEQ [...] nightly for cholesterol LOVASTATIN 40 MG TABS 578660 LOVASTATIN Inactive CEFDINIR 300 MG ORAL CAPS take 1 cap po bid x 10 days CEFDINIR 300 MG ORAL CAPS 219661 CEFDINIR Inactive ACEBUTOLOL HCL 200 MG CAPS 1 cap in the morning and 2 caps in the evening ACEBUTOLOL HCL 200 MG CAPS 309160 ACEBUTOLOL HCL Inactive VENTOLIN HFA 108 (90 BASE) MCG/ACT AERS 2 -4 puffs four times a day PRN 2013 VENTOLIN HFA 108 (90 BASE) MCG/ACT AERS ALBUTEROL SULFATE Inactive LEVAQUIN 500 MG ORAL TABS Take 1 tab po daily x 8 days LEVAQUIN 500 MG ORAL TABS 937354 LEVOFLOXACIN Inactive PREDNISONE 20 MG TAB 2 tabs daily for 4 days, 1 tab daily for 4 days, 1/2 tab daily for 4 days PREDNISONE 20 MG TAB 099190 PREDNISONE Inactive LOVASTATIN 40 MG ORAL TABS Take 1 tab po every hs LOVASTATIN 40 MG ORAL TABS 321148 LOVASTATIN Inactive DILAUDID 2 MG ORAL TABS Take 1/2 tab po every 4 hours as needed for pain 2014 DILAUDID 2 MG ORAL TABS 634221 HYDROMORPHONE HCL Inactive AMITRIPTYLINE HCL 25 MG ORAL TABS 1 q hs prn AMITRIPTYLINE HCL 25 MG ORAL TABS 399917 AMITRIPTYLINE HCL Inactive MECLIZINE HCL 25 MG TAB 1 tablet three times daily for 3 days, then 1/2 tab three times daily for 3 days. MECLIZINE HCL 25 MG TAB 264314 MECLIZINE HCL Inactive AMLODIPINE BESYLATE 5 MG ORAL TABS Take 1 tab po daily AMLODIPINE BESYLATE 5 MG ORAL TABS 225324 AMLODIPINE BESYLATE Inactive TOPIRAMATE 25 MG TABS 1 tab po BID TOPIRAMATE 25 MG TABS 487027 TOPIRAMATE Inactive PREDNISONE 20 MG TAB 1 tablet twice daily for 2 days, then 1 tablet once daily for 2 days PREDNISONE 20 MG TAB 621593 PREDNISONE Inactive AZITHROMYCIN 250 MG TABS 2 po qd x 1 day, then 1 po qd x 4 days AZITHROMYCIN 250 MG TABS 3140319 AZITHROMYCIN Inactive AZITHROMYCIN 250 MG TABS 2 po qd x 1 day, then 1 po qd x 4 days AZITHROMYCIN 250 MG TABS 0812217 AZITHROMYCIN Inactive PREDNISONE 20 MG TAB 2 po qd x 5 days PREDNISONE 20 MG TAB 892449 PREDNISONE Inactive Vital Signs Date Name Value [...] Panel - Chemistry sodium, serum 138 mmol/L 932-281 7802/09/24 potassium, serum 3.5 mmol/L 3.5-5.2 chloride, serum [...] Magnesium - Chemistry cholesterol, serum 180 mg/dL 293-008 2519/08/08 triglyceride, serum, fasting 92 mg/dL 30-200 HDL cholesterol, serum 66 mg/dL 32-96 LDL cholesterol, serum 96 mg/dL 0-130 sodium, serum 142 mmol/L 902-480 9540/08/08 carbon dioxide, venous blood 27.4 mmol/L 21.0-32.0 [...] 10.0-20.0 Encounters Code Encounter Date Provider Facility CPT-17561 Level 3 Est. Patient 09:58:58 CDT Harinder Cr [facility] CPT-88954 Level 3 Est. Patient 12:37:21 CDT Harinder Cr [facility] CPT-11710 Level 3 Est. Patient 18:37:17 CDT Harinder Cr [facility] CPT-01431 Level 4 Est. Patient 11:15:54 CDT Nettie Newberry [facility] CPT-06446 Level 3 Est. Patient 16:42:24 CDT Harinder Cr [facility] CPT-84088 Level 3 Est. Patient 15:03:36 CDT Harinder Cr [facility] CPT-31601 Level 3 Est. Patient 15:03:20 CDT Harinder Cr [facility] CPT-62730 Level 3 Est. Patient 12:14:34 CDT Harinder Cr [facility] CPT-57010 Level 3 Est. Patient 13:47:15 CDT Harinder Hernandez [facility] CPT-23803 Level 3 Est. Patient 14:08:24 CDT Harinder Hernandez [facility] CPT-61754 Level 3 Est. Patient 10:07:15 CDT Harinder Hernandez [facility] CPT-55006 Level 3 Est. Patient 10:06:59 CDT Harinder Hernandez [facility] CPT-20936 Level 3 Est. Patient 15:53:29 CDT Jae Morgan MD [facility] CPT-60994 Level 3 Est. Patient 17:19:04 CDT Harinder Hernandez [facility] CPT-34465 Level 3 Est. Patient 11:13:01 CDT Harinder Hernandez [facility] CPT-41762 Level 3 Est. Patient 09:03:58 CDT Harinder Hernandez [facility] CPT-88012 Level 3 Est. Patient 14:46:45 [employer] MAN Harinder Hernandez [facility] CPT-44556 Level 3 Est. Patient 09:35:49 [employer] MAN Harinder Hernandez [facility] CPT-04517 Level 3 Est. Patient 09:29:37 [employer] MAN Harinder Hernandez [facility] CPT-91722 Level 3 Est. Patient 15:51:07 CDT Harinder Hernandez [facility] CPT-80378 Level 3 Est. Patient 18:13:13 CDT Harinder Hernandez [facility] CPT-46678 Level 3 Est. Patient 10:44:19 CDT Harinder Shaye Hernandez [facility] CPT-85089 Level 4 Est. Patient 10:07:19 [employer] MAN Harinder Hernandez [facility] CPT-79613 Level 3 Est. Patient 15:59:32 [employer] MAN Harinder Cr [facility] Procedures Code Procedure Name Date Entry Date Standard Description CPT-48226 Magnesium - LAB USE ONLY 10:45:44 CDT CPT-92526 Lipid - LAB USE ONLY 10:45:44 CDT CPT-69758 CBC - LAB USE ONLY 10:45:44 CDT CPT-95139 Venipuncture Draw Fee 10:45:43 CDT CPT-99229 Venipuncture Draw Fee 18:21:27 CDT CPT-JTINJ Asp/Joint Injection 18:38:04 CDT CPT-06802 Immunization Each Additional Inj 17:38:04 CDT CPT-74934 Immunization Single Admin 17:38:04 CDT CPT-56514 Prevnar 13 17:38:04 CDT CPT-47755 Fluzone Quadrivalent preservative free (>=3yrs.) 17:38: 04 CDT CPT-23560 No Charge Offi Visit 11:14:03 CDT CPT-57258 Chest 2V Frontal and Lat 14:00:18 CDT CPT-OV Office Visit 16:10:28 CDT CPT-JTINJ Asp/Joint Injection 09:03:57 CDT CPT-Cryo Cryotherapy 09:35:49 RUNNER MAN CPT-JTINJ Asp/Joint Injection 09:34:45 RUNNER MAN CPT-J2930 Solu Medrol 125 mg (Methyl Prednisolone Sodium Succinate) 20:37:27 CDT CPT-52499 Abx/Therapy Injection 20:37:27 CDT CPT-60615 Port a cath flush 08:15:51 CDT CPT-81014 Port a cath flush 09:54:16 T CPT-03246 Port a cath flush 09:38:02 T CPT-63370 Port a cath flush 11:00:27 RUNNER MAN
--- OUTSIDE RECORDS SUMMARY | 2017-12-29 01:07 | XMS REPORT | Clinical Summary ---
Author Author Admin, QIE Organization [facility] [employer] Address Unknown Phone Unavailable Allergies, Adverse Reactions, [...] Hernandez DO [facility] CORTISONE LONG-LASTING Critical Active Haridner Hernandez DO AVELOX Critical Active Harinder Hernandez [...] 1 tablet by mouth daily POTASSIUM CHLORIDE 02951470636 Active Ciera Pimentel Active ALBUTEROL SULFATE 0.083 % NEBU SOLN 1 vial neb q 4hrs PRN Wheezing ALBUTEROL SULFATE 55551722860 Active Harinder Hernandez DO Active FLOVENT HFA 110 MCG/ACT AERO 2 puffs inhaled b.i.d. FLUTICASONE PROPIONATE HFA 43194934928 Active Harinder Hernandez DO Active POTASSIUM CHLORIDE CR 10 MEQ CPCR 1 capsule by mouth daily POTASSIUM CHLORIDE 95528916509 Active Harinder Hernandez DO Active EPIPEN 2-BRUNA 0.3 MG/0.3ML INJ SOAJ 1 INJ NEEDED EPINEPHRINE 25135714557 Active Tawnya Pardo MA Active PREDNISONE 20 MG TAB 1 tab twice daily for 3 day, then one daily for three days PREDNISONE 66510374059 No Longer Active Harinder Hernandez DO Active PREDNISONE 20 MG TAB 1 tablet twice daily for 2 days, then 1 tablet once daily for 2 days PREDNISONE 37777323697 No Longer Active Harinder Hernandez DO Active ASMANEX 120 METERED DOSES 220 MCG/INH INH AEPB 2 puffs orally twice daily MOMETASONE FUROATE 67926415374 Active Jeri Sosa RPT,RMA Active NIFEDIPINE ER 30 MG ORAL [id number] 1 daily NIFEDIPINE 11129079115 Active Harinder Hernandez DO Active TOPIRAMATE 25 MG TABS 1 tab po BID TOPIRAMATE 52723882031 No Longer Active Nettie Newberry APRN Active AMLODIPINE BESYLATE 5 MG ORAL TABS Take 1 tab po daily AMLODIPINE BESYLATE 41489436770 No Longer Active Nettie Newberry APRN Active MECLIZINE HCL 25 MG TAB 1 tablet three times daily for 3 days, then 1/2 tab three times daily for 3 days. MECLIZINE HCL 08073484012 No Longer Active Nettieog Newberry APRN Active AMITRIPTYLINE HCL 25 MG ORAL TABS 1 q hs prn AMITRIPTYLINE HCL 48050644519 No Longer Active Nettie Rohith MAHENDRA Active DILAUDID 2 MG ORAL TABS Take 1/2 tab po every 4 hours as needed for pain 2014 HYDROMORPHONE HCL 50181640417 No Longer Active Nettie Newberry APRN Active CLOPIDOGREL BISULFATE 75 MG ORAL TABS 1 tab by mouth once daily CLOPIDOGREL BISULFATE 84102810967 Active Tawnya Pardo MA Active ATORVASTATIN CALCIUM 10 MG ORAL TABS 1 at bedtime ATORVASTATIN CALCIUM 88250873512 Active Tawnya Pardo MA Active LOVASTATIN 40 MG ORAL TABS Take 1 tab po every hs LOVASTATIN 39617145447 No Longer Active Harinder Hernandez DO Active PREDNISONE 20 MG TAB 2 tabs daily for 4 days, 1 tab daily for 4 days, 1/2 tab daily for 4 days PREDNISONE 26741787346 No Longer Active Harinder Hernandez DO Active LEVAQUIN 500 MG ORAL TABS Take 1 tab po daily x 8 days LEVOFLOXACIN 68646310575 No Longer Active Harinder Hernandez DO Active VENTOLIN HFA 108 (90 BASE) MCG/ACT AERS 2 -4 puffs four times a day PRN 2013 ALBUTEROL SULFATE 33109453580 No Longer Active Jeri Sosa RPT,RMA Active ACEBUTOLOL HCL 200 MG CAPS 1 cap in the morning and 2 caps in the evening ACEBUTOLOL HCL 07766575042 No Longer Active Harinder Hernandez DO Active CEFDINIR 300 MG ORAL CAPS take 1 cap po bid x 10 days CEFDINIR 31421415532 No Longer Active Harinder Hernandez DO Active LOVASTATIN 40 MG TABS 1 pill by mouth nightly for cholesterol LOVASTATIN 55979193277 No Longer Active Nettie Newberry APRN Active NITROSTAT 0.4 MG SUBL 1 tab under tongueas needed for chest pain ( may take 3 total, 5 min apart, then call 911) NITROGLYCERIN 69639353809 No Longer Active Nettieog Newberry APRN Active POTASSIUM CHLORIDE CR 10 MEQ CPCR 1 capsule by mouth daily 02/14 POTASSIUM CHLORIDE 52261101432 No Longer Active Nettie Newberry APRN Active TESSALON PERLES 100 MG CAP 1 to 2 tablets by mouth 3 times daily as needed for cough BENZONATATE 27027845482 No Longer Active Nettie Newberry APRN Active THEOPHYLLINE ER 200 MG ORAL [id number] Take 1 tab every 12 hours THEOPHYLLINE 70838452549 Active Tawnya Pardo MA Active PREDNISONE 20 MG TAB 2 po qd x 5 days PREDNISONE 17828050558 No Longer Active Jae Morgan MD Active AZITHROMYCIN 250 MG TABS 2 po qd x 1 day, then 1 po qd x 4 days AZITHROMYCIN 06247175499 No Longer Active Jae Morgan MD Active PREDNISONE 20 MG TAB 1 tab twice daily for 3 day, then one daily for three days PREDNISONE 78914852956 No Longer Active Jae Morgan MD Active SINGULAIR 10 MG TABS 1 pill by mouth every evening for breathing. MONTELUKAST SODIUM 78104317319 Active Tawnya Pardo MA Active TYLENOL 325 MG TAB 3 by mouth q4h as needed ACETAMINOPHEN 42558367768 Active Harinder Hernandez DO Active POTASSIUM CHLORIDE ER 10 MEQ CR-TABS take 1 tab po daily POTASSIUM CHLORIDE 46971836470 No Longer Active Harinder Hernandez DO Active PREDNISONE 20 MG TAB 1 TID x 2 days, then 1 BID x 3 days, then 1 Daily x 3 days, then stop PREDNISONE 38922536254 No Longer Active John Montemayor APRN Active LEVAQUIN 500 MG TAB 1 tablet by mouth daily LEVOFLOXACIN 32242546826 No Longer Active John Montemayor APRN Active NEURONTIN 300 MG CAP 1 cap by mouth three times daily for restless leg 06/22 GABAPENTIN 27272689636 No Longer Active Harinder Hernandez DO Active BENZONATATE 100 MG CAPS 1 cap po TID PRN BENZONATATE 90809324912 No Longer Active Harinder Hernandez DO Active MONTELUKAST SODIUM 10 MG TABS 1 tab po in the evening MONTELUKAST SODIUM 15001490484 No Longer Active Harinder Hernandez DO Active MUPIROCIN 2 % OINT apply to affected area BID x 14 days MUPIROCIN 84069372114 No Longer Active Harinder Hernandez DO Active TYLENOL EXTRA STRENGTH 500 MG TABS as needed ACETAMINOPHEN 58502444406 No Longer Active Harinder Hernandez DO Active PREDNISONE 10 MG TABS 1 tab po daily PREDNISONE 90870044997 No Longer Active Harinder Hernandez DO Active PREDNISONE 20 MG TAB 2 tabs daily for 4 days, 1 tab daily for 4 days, 1/2 tab daily for 4 days PREDNISONE 55751353141 No Longer Active Harinder Hernandez DO Active AZITHROMYCIN 250 MG TABS 2 po qd x 1 day, then 1 po qd x 4 days AZITHROMYCIN 91095948799 No Longer Active Harinder Hernandez DO Active PREDNISONE 20 MG TAB 3 tabs today, then 1 tab twice daily for 3 day, then one daily for three days PREDNISONE 48408190184 No Longer Active Harinder Hernandez DO Active NIFEDIAC CC 30 MG [id number] 1 tablet daily for raynaud's syndrome NIFEDIPINE 03099847998 No Longer Active Tawnya Pardo MA Active AMBIEN 10 MG TAB 1/2 tab by mouth at bedtime as needed for sleep ZOLPIDEM TARTRATE 40109551907 Active Harinder Hernandez DO Active CLONAZEPAM 1 MG TABS 1 tablet at bedtime for insomnia and restless legs 09/14 CLONAZEPAM 02505244812 Active Harinder Hernandez DO Active CLONAZEPAM 0.5 MG TABS 1 tab po daily CLONAZEPAM 63799245215 No Longer Active Harinder Hernandez DO Active PREDNISONE 10 MG TAB 1 tablet daily for COPD PREDNISONE 96520231303 Active Tawnya Pardo MA Active PROAIR HFA 108 (90 BASE) MCG/ACT AERS 2 puffs four times a day as needed 2012 ALBUTEROL SULFATE 70739569348 Active Tawnya Pardo MA Active FLOVENT HFA 110 MCG/ACT AERO 2 puffs inhaled b.i.d. FLUTICASONE PROPIONATE HFA 38518334701 Active Tawnya Pardo MA Active ACIPHEX 20 MG TBEC 1 tab po daily RABEPRAZOLE SODIUM 67992740295 Active Kaylah Newberry Active CLONAZEPAM 0.5 MG TABS 1 tab po daily CLONAZEPAM 0.5 MG TABS 725856 CLONAZEPAM Inactive PREDNISONE 20 MG TAB 3 tabs today, then 1 tab twice daily for 3 day, then one daily for three days PREDNISONE 20 MG TAB 902383 PREDNISONE Inactive PREDNISONE 20 MG TAB 2 tabs daily for 4 days, 1 tab daily for 4 days, 1/2 tab daily for 4 days PREDNISONE 20 MG TAB 470228 PREDNISONE Inactive PREDNISONE 10 MG TABS 1 tab po daily PREDNISONE 10 MG TABS 047338 PREDNISONE Inactive TYLENOL EXTRA STRENGTH 500 MG TABS as needed TYLENOL EXTRA STRENGTH 500 MG TABS 761812 ACETAMINOPHEN Inactive MUPIROCIN 2 % OINT apply to affected area BID x 14 days MUPIROCIN 2 % OINT 169562 MUPIROCIN Inactive MONTELUKAST SODIUM 10 MG TABS 1 tab po in the evening MONTELUKAST SODIUM 10 MG TABS 20010818 MONTELUKAST SODIUM Inactive BENZONATATE 100 MG CAPS 1 cap po TID PRN BENZONATATE 100 MG CAPS 002444 BENZONATATE Inactive NEURONTIN 300 MG CAP 1 cap by mouth three times daily for restless leg 06/22 NEURONTIN 300 MG CAP 663061 GABAPENTIN Inactive LEVAQUIN 500 MG TAB 1 tablet by mouth daily LEVAQUIN 500 MG TAB 015813 LEVOFLOXACIN Inactive PREDNISONE 20 MG TAB 1 TID x 2 days, then 1 BID x 3 days, then 1 Daily x 3 days, then stop PREDNISONE 20 MG TAB 399018 PREDNISONE Inactive POTASSIUM CHLORIDE ER 10 MEQ CR-TABS take 1 tab po daily POTASSIUM CHLORIDE ER 10 MEQ CR-TABS POTASSIUM CHLORIDE Inactive PREDNISONE 20 MG TAB 1 tab twice daily for 3 day, then one daily for three days PREDNISONE 20 MG TAB 090563 PREDNISONE Inactive TESSALON PERLES 100 MG CAP 1 to 2 tablets by mouth 3 times daily as needed for cough TESSALON PERLES 100 MG CAP 432836 BENZONATATE Inactive POTASSIUM CHLORIDE CR 10 MEQ CPCR 1 capsule by mouth daily 02/14 POTASSIUM CHLORIDE CR 10 MEQ CPCR POTASSIUM CHLORIDE Inactive NITROSTAT 0.4 MG SUBL 1 tab under tongueas needed for chest pain ( may take 3 total, 5 min apart, then call 911) NITROSTAT 0.4 MG SUBL 440454 NITROGLYCERIN Inactive LOVASTATIN 40 MG TABS 1 pill by mouth nightly for cholesterol LOVASTATIN 40 MG TABS 077952 LOVASTATIN Inactive CEFDINIR 300 MG ORAL CAPS take 1 cap po bid x 10 days CEFDINIR 300 MG ORAL CAPS 746977 CEFDINIR Inactive ACEBUTOLOL HCL 200 MG CAPS 1 cap in the morning and 2 caps in the evening ACEBUTOLOL HCL 200 MG CAPS 125632 ACEBUTOLOL HCL Inactive VENTOLIN HFA 108 (90 BASE) MCG/ACT AERS 2 -4 puffs four times a day PRN 2013 VENTOLIN HFA 108 (90 BASE) MCG/ACT AERS ALBUTEROL SULFATE Inactive LEVAQUIN 500 MG ORAL TABS Take 1 tab po daily x 8 days LEVAQUIN 500 MG ORAL TABS 779373 LEVOFLOXACIN Inactive PREDNISONE 20 MG TAB 2 tabs daily for 4 days, 1 tab daily for 4 days, 1/2 tab daily for 4 days PREDNISONE 20 MG TAB 316225 PREDNISONE Inactive LOVASTATIN 40 MG ORAL TABS Take 1 tab po every hs LOVASTATIN 40 MG ORAL TABS 155315 LOVASTATIN Inactive DILAUDID 2 MG ORAL TABS Take 1/2 tab po every 4 hours as needed for pain 2014 DILAUDID 2 MG ORAL TABS 660816 HYDROMORPHONE HCL Inactive AMITRIPTYLINE HCL 25 MG ORAL TABS 1 q hs prn AMITRIPTYLINE HCL 25 MG ORAL TABS 753792 AMITRIPTYLINE HCL Inactive MECLIZINE HCL 25 MG TAB 1 tablet three times daily for 3 days, then 1/2 tab three times daily for 3 days. MECLIZINE HCL 25 MG TAB 194371 MECLIZINE HCL Inactive AMLODIPINE BESYLATE 5 MG ORAL TABS Take 1 tab po daily AMLODIPINE BESYLATE 5 MG ORAL TABS 589483 AMLODIPINE BESYLATE Inactive TOPIRAMATE 25 MG TABS 1 tab po BID TOPIRAMATE 25 MG TABS 557960 TOPIRAMATE Inactive PREDNISONE 20 MG TAB 1 tablet twice daily for 2 days, then 1 tablet once daily for 2 days PREDNISONE 20 MG TAB 563879 PREDNISONE Inactive PREDNISONE 20 MG TAB 1 tab twice daily for 3 day, then one daily for three days PREDNISONE 20 MG TAB 033706 PREDNISONE Inactive AZITHROMYCIN 250 MG TABS 2 po qd x 1 day, then 1 po qd x 4 days AZITHROMYCIN 250 MG TABS 2640742 AZITHROMYCIN Inactive AZITHROMYCIN 250 MG TABS 2 po qd x 1 day, then 1 po qd x 4 days AZITHROMYCIN 250 MG TABS 9803259 AZITHROMYCIN Inactive PREDNISONE 20 MG TAB 2 po qd x 5 days PREDNISONE 20 MG TAB 968817 PREDNISONE Inactive Vital Signs Date Name Value [...] Panel - Chemistry sodium, serum 137 mmol/L 486-774 7116/01/03 potassium, serum 3.4 mmol/L 3.5-5.2 chloride, serum [...] Magnesium - Chemistry cholesterol, serum 180 mg/dL 068-795 8098/08/08 triglyceride, serum, fasting 92 mg/dL 30-200 HDL cholesterol, serum 66 mg/dL 32-96 LDL cholesterol, serum 96 mg/dL 0-130 sodium, serum 142 mmol/L 540-724 8802/08/08 carbon dioxide, venous blood 27.4 mmol/L 21.0-32.0 [...] 10.0-20.0 Encounters Code Encounter Date Provider Facility CPT-17062 Level 3 Est. Patient 09:58:58 CDT Harinder Cr [facility] CPT-40056 Level 3 Est. Patient 12:37:21 CDT Harinder Cr [facility] CPT-49658 Level 3 Est. Patient 18:37:17 CDT Harinder Cr [facility] CPT-84192 Level 4 Est. Patient 11:15:54 CDT Nettie Newberry [facility] CPT-48111 Level 3 Est. Patient 16:42:24 CDT Harinder Cr [facility] CPT-29548 Level 3 Est. Patient 15:03:36 CDT Harinder Cr [facility] CPT-37481 Level 3 Est. Patient 15:03:20 CDT aHrinder Cr [facility] CPT-88393 Level 3 Est. Patient 12:14:34 CDT Harinder Cr [facility] CPT-63228 Level 3 Est. Patient 13:47:15 CDT Harinder Hernandez [facility] CPT-99442 Level 3 Est. Patient 14:08:24 CDT Harinder Hernandez [facility] CPT-45193 Level 3 Est. Patient 10:07:15 CDT Harinder Hernandez [facility] CPT-86487 Level 3 Est. Patient 10:06:59 CDT Harinder Hernandez [facility] CPT-60315 Level 3 Est. Patient 15:53:29 CDT Jae Morgan [facility] CPT-67259 Level 3 Est. Patient 17:19:04 CDT Harinder Hernandez [facility] CPT-51242 Level 3 Est. Patient 11:13:01 CDT Harinder Hernandez [facility] CPT-46431 Level 3 Est. Patient 09:03:58 CDT Harinder Hernandez [facility] CPT-24666 Level 3 Est. Patient 14:46:45 B2B ACCOUNT EXECUTIVE Harinder Hernandez [facility] CPT-45162 Level 3 Est. Patient 09:35:49 B2B ACCOUNT EXECUTIVE Harinder Shaye Hernandez [facility] CPT-19682 Level 3 Est. Patient 09:29:37 B2B ACCOUNT EXECUTIVE Harinder Cr David [facility] CPT-55579 Level 3 Est. Patient 15:51:07 CDT Harinder Hernandez [facility] CPT-08704 Level 3 Est. Patient 18:13:13 CDT Harinder Cr David [facility] CPT-39512 Level 3 Est. Patient 10:44:19 CDT Harinder Hernandez [facility] CPT-44328 Level 4 Est. Patient 10:07:19 B2B ACCOUNT EXECUTIVE Harinder Hernandez [facility] CPT-28188 Level 3 Est. Patient 15:59:32 B2B ACCOUNT EXECUTIVE Harinder Hernandez [facility] Procedures Code Procedure Name Date Entry Date Standard Description CPT-74332 BMP - LAB USE ONLY 16:45:09 B2B ACCOUNT EXECUTIVE CPT-38979 Port a cath flush 12:00:13 B2B ACCOUNT EXECUTIVE CPT-TCMM Transitional Care Mgmt-Moderate 11:20:16 B2B ACCOUNT EXECUTIVE CPT-35919 First Vx - Ix admin for Medicare patients 17:35:15 CDT CPT-67038 Fluzone Preservative Free Intramuscular Suspension 17:35 :15 CDT CPT-11781 Microalbumin - LAB USE ONLY 11:52:05 CDT CPT-TCMM Transitional Care Mgmt-Moderate 11:33:57 CDT CPT-48980 No Charge Offi Visit 14:11:29 CDT CPT-79862 Magnesium - LAB USE ONLY 10:45:44 CDT CPT-74320 Lipid - LAB USE ONLY 10:45:44 CDT CPT-84029 CBC - LAB USE ONLY 10:45:44 CDT CPT-50350 Venipuncture Draw Fee 10:45:43 CDT CPT-18085 Venipuncture Draw Fee 18:21:27 CDT CPT-JTINJ Asp/Joint Injection 18:38:04 CDT CPT-92886 Immunization Each Additional Inj 17:38:04 CDT CPT-02698 Immunization Single Admin 17:38:04 CDT CPT-72694 Prevnar 13 17:38:04 CDT CPT-78540 Fluzone Quadrivalent preservative free (>=3yrs.) 17:38: 04 CDT CPT-35086 No Charge Offi Visit 11:14:03 CDT CPT-88616 Chest 2V Frontal and Lat 14:00:18 CDT CPT-OV Office Visit 16:10:28 CDT CPT-JTINJ Asp/Joint Injection 09:03:57 CDT CPT-Cryo Cryotherapy 09:35:49 B2B ACCOUNT EXECUTIVE CPT-JTINJ Asp/Joint Injection 09:34:45 B2B ACCOUNT EXECUTIVE CPT-J2930 Solu Medrol 125 mg (Methyl Prednisolone Sodium Succinate) 20:37:27 CDT CPT-82498 Abx/Therapy Injection 20:37:27 CDT CPT-33935 Port a cath flush 08:15:51 CDT CPT-45704 Port a cath flush 09:54:16 CDT CPT-84690 Port a cath flush 09:38:02 CDT CPT-53175 Port a cath flush 11:00:27 B2B ACCOUNT EXECUTIVE
--- OUTSIDE RECORDS SUMMARY | 2017-12-29 01:08 | XMS REPORT | Clinical Summary ---
Author Author Admin, QIE Organization [facility] Address Unknown Phone Unavailable Allergies, Adverse [...] RELEASE 12 HOUR 1 po BID THEOPHYLLINE [id number] Active Kortney Mccain Active POTASSIUM CHLORIDE ER 20 MEQ ORAL TABLET EXTENDED RELEASE 1 po q day POTASSIUM CHLORIDE 50040811587 Active Kortney Mccain Active POTASSIUM CHLORIDE 20 MEQ ORAL PACKET 1 tab po q day POTASSIUM CHLORIDE 60712639286 No Longer Active Kortney Mccain Active POTASSIUM CHLORIDE ER 10 MEQ ORAL CAPSULE EXTENDED RELEASE 1 capsule BID 2016 POTASSIUM CHLORIDE 84336839661 No Longer Active Kortney Mccain Active LASIX 20 MG ORAL TABLET 1 tablet by mouth every morning FUROSEMIDE 32595178312 No Longer Active Kortney Mccain Active SPIRONOLACTONE 25 MG ORAL TABLET 1 tablet by mouth daily SPIRONOLACTONE 91260301730 Active Kortney Mccain Active FLUOXETINE HCL 10 MG ORAL CAPSULE 1 po qd for depression/anxiety FLUOXETINE HCL 72482618945 Active Harinder Hernandez DO Active VOLTAREN 1 % TRANSDERMAL GEL apply q 6-8 hour to left arm as needed for pain DICLOFENAC SODIUM 92711782704 Active Kortney Mccain Active ALBUTEROL SULFATE (2.5 MG/3ML) 0.083% INHALATION NEBULIZATION SOLUTION 1 vial neb q 4hrs for severe asthma. 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 NIFEDIPINE 66406503310 Active Kortney Mccain Active AMLODIPINE BESYLATE 5 MG ORAL TABLET 1 tablet by mouth daily 2016 AMLODIPINE BESYLATE 39290726097 No Longer Active Harinder Hernandez DO Active TOPAMAX 25 MG ORAL TABLET 1 tab po BID TOPIRAMATE 44336700483 Active Kortney Mccain Active FLUTICASONE PROPIONATE 50 MCG/ACT NASAL SUSPENSION 2 sprays per nostril daily PRN Allergies FLUTICASONE PROPIONATE 51863089221 Active Kortney Mccain Active NIFEDIPINE ER 30 MG ORAL TABLET EXTENDED RELEASE 24 HOUR 1 daily NIFEDIPINE 95322549504 No Longer Active Harinder Hernandez DO Active FLOVENT HFA 110 MCG/ACT INHALATION AEROSOL 2 puffs inhaled b.i.d. FLUTICASONE PROPIONATE HFA 78814959714 Active Harinder Hernandez DO Active EPIPEN 2-BRUNA 0.3 MG/0.3ML INJECTION SOLUTION AUTO-INJECTOR 1 INJ NEEDED EPINEPHRINE 52063234147 Active Harinder Hernandez DO Active PREDNISONE 20 MG ORAL TABLET 1 tab twice daily for 3 day, then one daily for three days PREDNISONE 53197417113 No Longer Active Harinder Hernandez DO Active PREDNISONE 20 MG ORAL TABLET 1 tablet twice daily for 2 days, then 1 tablet once daily for 2 days PREDNISONE 67558476767 No Longer Active Harinder Hernandez DO Active ASMANEX 120 METERED DOSES 220 MCG/INH INHALATION AEROSOL POWDER BREATH ACTIVATED 2 puffs orally twice daily MOMETASONE FUROATE 90132396940 Active Jeri Sosa LPN Active TOPIRAMATE 25 MG ORAL TABLET 1 tab po BID TOPIRAMATE 20218801349 No Longer Active Nettie Newberry MAHENDRA Active AMLODIPINE BESYLATE 5 MG ORAL TABLET Take 1 tab po daily AMLODIPINE BESYLATE 37356566495 No Longer Active Nettie Newberry MAHENDRA Active MECLIZINE HCL 25 MG ORAL TABLET 1 tablet three times daily for 3 days, then 1/ 2 tab three times daily for 3 days. MECLIZINE HCL 04577372389 No Longer Active Nettie Newberry MAHENDRA Active AMITRIPTYLINE HCL 25 MG ORAL TABLET 1 q hs prn AMITRIPTYLINE HCL 42982963976 No Longer Active Nettie Newberry MAHENDRA Active DILAUDID 2 MG ORAL TABLET Take 1/2 tab po every 4 hours as needed for pain HYDROMORPHONE HCL 58334269643 No Longer Active Nettie Rohith MAHENDRA Active CLOPIDOGREL BISULFATE 75 MG ORAL TABLET 1 tab by mouth once daily CLOPIDOGREL BISULFATE 19314122002 Active Harinder Hernandez DO Active ATORVASTATIN CALCIUM 10 MG ORAL TABLET 1 at bedtime ATORVASTATIN CALCIUM 71167637314 Active Kortney Mccain Active LOVASTATIN 40 MG ORAL TABLET Take 1 tab po every hs LOVASTATIN 18107879069 No Longer Active Harinder Hernandez DO Active PREDNISONE 20 MG ORAL TABLET 2 tabs daily for 4 days, 1 tab daily for 4 days, 1/2 tab daily for 4 days PREDNISONE 31501390812 No Longer Active Harinder Hernandez DO Active LEVAQUIN 500 MG ORAL TABLET Take 1 tab po daily x 8 days LEVOFLOXACIN 63482592093 No Longer Active Harinder Hernandez DO Active VENTOLIN HFA 108 (90 Base) MCG/ACT INHALATION AEROSOL SOLUTION 2 -4 puffs four times a day PRN ALBUTEROL SULFATE 89237456428 No Longer Active Jeri Sosa LPN Active ACEBUTOLOL HCL 200 MG ORAL CAPSULE 1 cap in the morning and 2 caps in the evening ACEBUTOLOL HCL 75062867953 No Longer Active Harinder Hernandez DO Active CEFDINIR 300 MG ORAL CAPSULE take 1 cap po bid x 10 days CEFDINIR 67472078932 No Longer Active Harinder Hernandez DO Active LOVASTATIN 40 MG ORAL TABLET 1 pill by mouth nightly for cholesterol LOVASTATIN 96357998856 No Longer Active Nettie Newberry APRN Active NITROSTAT 0.4 MG SUBLINGUAL TABLET SUBLINGUAL 1 tab under tongueas needed for chest pain ( may take 3 total, 5 min apart, then call 911) NITROGLYCERIN 23630192575 No Longer Active Nettie Newberry APRN Active POTASSIUM CHLORIDE ER 10 MEQ ORAL CAPSULE EXTENDED RELEASE 1 capsule by mouth daily POTASSIUM CHLORIDE 49534266178 No Longer Active Nettie Newberry APRN Active TESSALON PERLES 100 MG ORAL CAPSULE 1 to 2 tablets by mouth 3 times daily as needed for cough BENZONATATE 27962327753 No Longer Active Nettie Newberry APRN Active PREDNISONE 20 MG ORAL TABLET 2 po qd x 5 days PREDNISONE 25693713424 No Longer Active Jae Morgan MD Active AZITHROMYCIN 250 MG ORAL TABLET 2 po qd x 1 day, then 1 po qd x 4 days 12/30 AZITHROMYCIN 35753046647 No Longer Active Jae Morgan MD Active PREDNISONE 20 MG ORAL TABLET 1 tab twice daily for 3 day, then one daily for three days PREDNISONE 52349643982 No Longer Active Jae Morgan MD Active SINGULAIR 10 MG ORAL TABLET 1 pill by mouth every evening for breathing. 2014 MONTELUKAST SODIUM 08163957327 Active Kortney Mccain Active TYLENOL 325 MG ORAL TABLET 3 by mouth q4h as needed ACETAMINOPHEN 36797411090 Active Harinder Hernandez DO Active POTASSIUM CHLORIDE ER 10 MEQ ORAL TABLET EXTENDED RELEASE take 1 tab po daily POTASSIUM CHLORIDE 32069296142 No Longer Active Harinder Hernandez DO Active PREDNISONE 20 MG ORAL TABLET 1 TID x 2 days, then 1 BID x 3 days, then 1 Daily x 3 days, then stop PREDNISONE 58668651012 No Longer Active Jialec Montemayor APRN Active LEVAQUIN 500 MG ORAL TABLET 1 tablet by mouth daily LEVOFLOXACIN 84937291924 No Longer Active Jillina Frazell THERAPEUTIC RADIOLOGIST Active NEURONTIN 300 MG ORAL CAPSULE 1 cap by mouth three times daily for restless leg GABAPENTIN 89695789433 No Longer Active Harinder Hernandez DO Active BENZONATATE 100 MG ORAL CAPSULE 1 cap po TID PRN BENZONATATE 00717656383 No Longer Active Harinder Hernandez DO Active MONTELUKAST SODIUM 10 MG ORAL TABLET 1 tab po in the evening 2014 MONTELUKAST SODIUM 29366550923 No Longer Active Harinder Hernandez DO Active MUPIROCIN 2 % EXTERNAL OINTMENT apply to affected area BID x 14 days MUPIROCIN 87519807148 No Longer Active Harinder Hernandez DO Active TYLENOL EXTRA STRENGTH 500 MG ORAL TABLET as needed ACETAMINOPHEN 66453943564 No Longer Active Harinder Hernandez DO Active PREDNISONE 10 MG ORAL TABLET 1 tab po daily PREDNISONE 50161314306 No Longer Active Harinder Hernandez DO Active PREDNISONE 20 MG ORAL TABLET 2 tabs daily for 4 days, 1 tab daily for 4 days, 1/2 tab daily for 4 days PREDNISONE 86745028823 No Longer Active Harinder Hernandez DO Active AZITHROMYCIN 250 MG ORAL TABLET 2 po qd x 1 day, then 1 po qd x 4 days 04/06 AZITHROMYCIN 38438592583 No Longer Active Harinder Hernandez DO Active PREDNISONE 20 MG ORAL TABLET 3 tabs today, then 1 tab twice daily for 3 day, then one daily for three days PREDNISONE 82514910110 No Longer Active Harinder Hernandez DO Active NIFEDIAC CC 30 MG ORAL TABLET EXTENDED RELEASE 24 HOUR 1 tablet daily for raynaud's syndrome NIFEDIPINE 89562435150 No Longer Active Tawnya Pardo MA Active AMBIEN 10 MG ORAL TABLET 1/2 tab by mouth at bedtime as needed for sleep 2013 ZOLPIDEM TARTRATE 55932308195 Active Kortney Mccain Active CLONAZEPAM 1 MG ORAL TABLET 1 tablet at bedtime for insomnia and restless legs CLONAZEPAM 09485555488 Active Harinder Hernandez DO Active CLONAZEPAM 0.5 MG ORAL TABLET 1 tab po daily CLONAZEPAM 90275554538 No Longer Active Harinder Hernandez DO Active PREDNISONE 10 MG ORAL TABLET 1 tablet daily for COPD PREDNISONE 96074798368 Active Kortney Mccain Active PROAIR HFA 108 (90 Base) MCG/ACT INHALATION AEROSOL SOLUTION 2 puffs four times a day as needed ALBUTEROL SULFATE 92266522059 Active Harinder Hernandez DO Active FLOVENT HFA 110 MCG/ACT INHALATION AEROSOL 2 puffs inhaled b.i.d. FLUTICASONE PROPIONATE HFA 82866565338 Active Kortney Mccain Active ACIPHEX 20 MG ORAL TABLET DELAYED RELEASE 1 tab po daily RABEPRAZOLE SODIUM 46585768723 Active Kaylah Newberry Active CLONAZEPAM 0.5 MG ORAL TABLET 1 tab po daily CLONAZEPAM 0.5 MG ORAL TABLET 989745 CLONAZEPAM Inactive PREDNISONE 20 MG ORAL TABLET 3 tabs today, then 1 tab twice daily for 3 day, then one daily for three days PREDNISONE 20 MG ORAL TABLET 927586 PREDNISONE Inactive PREDNISONE 20 MG ORAL TABLET 2 tabs daily for 4 days, 1 tab daily for 4 days, 1/2 tab daily for 4 days PREDNISONE 20 MG ORAL TABLET 338432 PREDNISONE Inactive PREDNISONE 10 MG ORAL TABLET 1 tab po daily PREDNISONE 10 MG ORAL TABLET 384720 PREDNISONE Inactive TYLENOL EXTRA STRENGTH 500 MG ORAL TABLET as needed TYLENOL EXTRA STRENGTH 500 MG ORAL TABLET 324816 ACETAMINOPHEN Inactive MUPIROCIN 2 % EXTERNAL OINTMENT apply to affected area BID x 14 days MUPIROCIN 2 % EXTERNAL OINTMENT 687148 MUPIROCIN Inactive MONTELUKAST SODIUM 10 MG ORAL TABLET 1 tab po in the evening 2014 MONTELUKAST SODIUM 10 MG ORAL TABLET 20010818 MONTELUKAST SODIUM Inactive BENZONATATE 100 MG ORAL CAPSULE 1 cap po TID PRN BENZONATATE 100 MG ORAL CAPSULE 687347 BENZONATATE Inactive NEURONTIN 300 MG ORAL CAPSULE 1 cap by mouth three times daily for restless leg NEURONTIN 300 MG ORAL CAPSULE 436958 GABAPENTIN Inactive LEVAQUIN 500 MG ORAL TABLET 1 tablet by mouth daily LEVAQUIN 500 MG ORAL TABLET 829501 LEVOFLOXACIN Inactive PREDNISONE 20 MG ORAL TABLET 1 TID x 2 days, then 1 BID x 3 days, then 1 Daily x 3 days, then stop PREDNISONE 20 MG ORAL TABLET 091012 PREDNISONE Inactive POTASSIUM CHLORIDE ER 10 MEQ ORAL TABLET EXTENDED RELEASE take 1 tab po daily POTASSIUM CHLORIDE ER 10 MEQ ORAL TABLET EXTENDED RELEASE POTASSIUM CHLORIDE Inactive PREDNISONE 20 MG ORAL TABLET 1 tab twice daily for 3 day, then one daily for three days PREDNISONE 20 MG ORAL TABLET 086213 PREDNISONE Inactive TESSALON PERLES 100 MG ORAL CAPSULE 1 to 2 tablets by mouth 3 times daily as needed for cough TESSALON PERLES 100 MG ORAL CAPSULE 394219 BENZONATATE Inactive POTASSIUM CHLORIDE ER 10 MEQ ORAL CAPSULE EXTENDED RELEASE 1 capsule by mouth daily POTASSIUM CHLORIDE ER 10 MEQ ORAL CAPSULE EXTENDED RELEASE POTASSIUM CHLORIDE Inactive NITROSTAT 0.4 MG SUBLINGUAL TABLET SUBLINGUAL 1 tab under tongueas needed for chest pain ( may take 3 total, 5 min apart, then call 911) NITROSTAT 0.4 MG SUBLINGUAL TABLET SUBLINGUAL 111696 NITROGLYCERIN Inactive LOVASTATIN 40 MG ORAL TABLET 1 pill by mouth nightly for cholesterol LOVASTATIN 40 MG ORAL TABLET 870896 LOVASTATIN Inactive CEFDINIR 300 MG ORAL CAPSULE take 1 cap po bid x 10 days CEFDINIR 300 MG ORAL CAPSULE 597545 CEFDINIR Inactive ACEBUTOLOL HCL 200 MG ORAL CAPSULE 1 cap in the morning and 2 caps in the evening ACEBUTOLOL HCL 200 MG ORAL CAPSULE 323314 ACEBUTOLOL HCL Inactive VENTOLIN HFA 108 (90 Base) MCG/ACT INHALATION AEROSOL SOLUTION 2 -4 puffs four times a day PRN VENTOLIN HFA 108 (90 Base) MCG/ ACT INHALATION AEROSOL SOLUTION ALBUTEROL SULFATE Inactive LEVAQUIN 500 MG ORAL TABLET Take 1 tab po daily x 8 days LEVAQUIN 500 MG ORAL TABLET 128643 LEVOFLOXACIN Inactive PREDNISONE 20 MG ORAL TABLET 2 tabs daily for 4 days, 1 tab daily for 4 days, 1/2 tab daily for 4 days PREDNISONE 20 MG ORAL TABLET 337579 PREDNISONE Inactive LOVASTATIN 40 MG ORAL TABLET Take 1 tab po every hs LOVASTATIN 40 MG ORAL TABLET 125463 LOVASTATIN Inactive DILAUDID 2 MG ORAL TABLET Take 1/2 tab po every 4 hours as needed for pain DILAUDID 2 MG ORAL TABLET 164341 HYDROMORPHONE HCL Inactive AMITRIPTYLINE HCL 25 MG ORAL TABLET 1 q hs prn AMITRIPTYLINE HCL 25 MG ORAL TABLET 241452 AMITRIPTYLINE HCL Inactive MECLIZINE HCL 25 MG ORAL TABLET 1 tablet three times daily for 3 days, then 1/ 2 tab three times daily for 3 days. MECLIZINE HCL 25 MG ORAL TABLET 902685 MECLIZINE HCL Inactive AMLODIPINE BESYLATE 5 MG ORAL TABLET Take 1 tab po daily AMLODIPINE BESYLATE 5 MG ORAL TABLET 764237 AMLODIPINE BESYLATE Inactive TOPIRAMATE 25 MG ORAL TABLET 1 tab po BID TOPIRAMATE 25 MG ORAL TABLET 706043 TOPIRAMATE Inactive PREDNISONE 20 MG ORAL TABLET 1 tablet twice daily for 2 days, then 1 tablet once daily for 2 days PREDNISONE 20 MG ORAL TABLET 555405 PREDNISONE Inactive PREDNISONE 20 MG ORAL TABLET 1 tab twice daily for 3 day, then one daily for three days PREDNISONE 20 MG ORAL TABLET 217433 PREDNISONE Inactive NIFEDIPINE ER 30 MG ORAL TABLET EXTENDED RELEASE 24 HOUR 1 daily NIFEDIPINE ER 30 MG ORAL TABLET EXTENDED RELEASE 24 HOUR NIFEDIPINE Inactive AMLODIPINE BESYLATE 5 MG ORAL TABLET 1 tablet by mouth daily 2016 AMLODIPINE BESYLATE 5 MG ORAL TABLET 032121 AMLODIPINE BESYLATE Inactive LASIX 20 MG ORAL TABLET 1 tablet by mouth every morning LASIX 20 MG ORAL TABLET 184444 FUROSEMIDE Inactive POTASSIUM CHLORIDE ER 10 MEQ ORAL CAPSULE EXTENDED RELEASE 1 capsule BID 2016 POTASSIUM CHLORIDE ER 10 MEQ ORAL CAPSULE EXTENDED RELEASE POTASSIUM CHLORIDE Inactive POTASSIUM CHLORIDE 20 MEQ ORAL PACKET 1 tab po q day POTASSIUM CHLORIDE 20 MEQ ORAL PACKET 4521416 POTASSIUM CHLORIDE Inactive AZITHROMYCIN 250 MG ORAL TABLET 2 po qd x 1 day, then 1 po qd x 4 days 04/06 AZITHROMYCIN 250 MG ORAL TABLET 344251 AZITHROMYCIN Inactive AZITHROMYCIN 250 MG ORAL TABLET 2 po qd x 1 day, then 1 po qd x 4 days 12/30 AZITHROMYCIN 250 MG ORAL TABLET 480699 AZITHROMYCIN Inactive PREDNISONE 20 MG ORAL TABLET 2 po qd x 5 days PREDNISONE 20 MG ORAL TABLET 661975 PREDNISONE Inactive Vital Signs Date Name Value [...] Panel - Chemistry sodium, serum 137 mmol/L 600-390 8295/01/03 potassium, serum 3.4 mmol/L 3.5-5.2 chloride, serum 102 mmol/L 98-107 carbon dioxide, venous blood 29.2 mmol/L 21.0-32.0 blood glucose 87 mg/dL 65-110 calcium, serum 8.5 mg/dL 8.5-10.1 urea nitrogen, blood 8 mg/dL 7-18 creatinine, serum 0.82 mg/dL 0.55-1.30 sodium, serum 140 mmol/L 463-835 6189/07/13 potassium, serum 3.2 mmol/L 3.5-5.2 chloride, serum 103 mmol/L 98-107 carbon dioxide, venous blood 26.9 mmol/L 21.0-32.0 blood glucose 93 mg/dL 65-110 calcium, serum 9.2 mg/dL 8.5-10.1 urea nitrogen, blood 13 mg/dL 7-18 creatinine, serum 0.84 mg/dL 0.60-1.30 sodium, serum 140 mmol/L 489-306 1072/08/21 potassium, serum 3.8 mmol/L 3.5-5.2 chloride, serum 105 mmol/L 98-107 carbon dioxide, venous blood 26.9 mmol/L 21.0-32.0 blood glucose 85 mg/dL 65-110 calcium, serum 8.8 mg/dL 8.5-10.1 urea nitrogen, blood 11 mg/dL 7- creatinine, serum 0.95 mg/dL 0.60-1.30 Lab Report: [...] ... - Chemistry sodium, serum 141 mmol/L 001-607 2838/08/07 carbon dioxide, venous blood 34.0 mmol/L 21.0-32.0 [...] 1.40 mg/dL 0.00-1.00 cholesterol, serum 192 mg/dL 142-016 5538/10/19 triglyceride, serum, fasting 71 mg/dL 30-200 HDL cholesterol, serum 72 mg/dL 32-60 LDL cholesterol, serum 106 mg/dL 0-130 Lab Report: THEOPHYLLINE - Toxicology theophylline level, serum 3.1 ug/mL 10.0-20.0 Encounters Code Encounter Date Provider Facility CPT-53244 Level 4 Est. Patient 14:45:25 CDT Harinder Cr [facility] CPT-54914 Level 4 Est. Patient 09:15:13 CDT Harinder [facility] CPT-66331 Level 3 Est. Patient 11:51:58 CDT Harinder [facility] CPT-55146 Level 3 Est. Patient 11:30:05 CDT Harinder Hernandez [facility] CPT-47839 Level 4 Est. Patient 10:19:23 CDT Harinder Hernandez [facility] CPT-55451 Level 3 Est. Patient 09:58:58 CDT Harinder Cr [facility] CPT-56815 Level 3 Est. Patient 12:37:21 CDT Harinder Hernandez [facility] CPT-04987 Level 3 Est. Patient 18:37:17 CDT Harinder Cr [facility] CPT-33155 Level 4 Est. Patient 11:15:54 CDT Nettie King MAHENDRA [facility] CPT-24391 Level 3 Est. Patient 16:42:24 CDT Harinder Cr [facility] CPT-89348 Level 3 Est. Patient 15:03:36 CDT Harinder Hernandez [facility] CPT-44645 Level 3 Est. Patient 15:03:20 CDT Harinder Cr [facility] CPT-57347 Level 3 Est. Patient 12:14:34 CDT Harinder [facility] CPT-53866 Level 3 Est. Patient 13:47:15 CDT Harinder Cr [facility] CPT-53742 Level 3 Est. Patient 14:08:24 CDT Harinder Hernandez [facility] CPT-30424 Level 3 Est. Patient 10:07:15 CDT Harinder Cr [facility] CPT-86184 Level 3 Est. Patient 10:06:59 CDT Harinder Hernandez [facility] CPT-85164 Level 3 Est. Patient 15:53:29 CDT Jae Morgan [facility] CPT-63913 Level 3 Est. Patient 17:19:04 CDT Harinder [facility] CPT-25609 Level 3 Est. Patient 11:13:01 CDT Harinder [facility] CPT-85085 Level 3 Est. Patient 09:03:58 CDT Harinder Hernandez [facility] CPT-77893 Level 3 Est. Patient 14:46:45 PUMP OILER Harinder Hernandez [facility] CPT-40829 Level 3 Est. Patient 09:35:49 PUMP OILER Harinder Hernandez [facility] CPT-00045 Level 3 Est. Patient 09:29:37 PUMP OILER Harinder Hernandez [facility] CPT-56303 Level 3 Est. Patient 15:51:07 CDT Harinder Hernandez [facility] CPT-71244 Level 3 Est. Patient 18:13:13 CDT Harinder Hernandez [facility] CPT-43411 Level 3 Est. Patient 10:44:19 CDT Harinder Hernandez [facility] CPT-05142 Level 4 Est. Patient 10:07:19 PUMP OILER Harinder Hernandez [facility] CPT-15008 Level 3 Est. Patient 15:59:32 PUMP OILER Harinder Hernandez [facility] Procedures Code Procedure Name Date Entry Date Standard Description CPT-22176 Abd compl w upright - XRAY USE ONLY 14:48:09 CDT 02/18 CPT-11629 Port a cath flush 13:46:05 CDT CPT-98892 Hip, complete, 2-3 views - XRAY USE ONLY 10:28:40 CDT CPT-58728 BMP - LAB USE ONLY 16:45:09 PUMP OILER CPT-18836 Port a cath flush 12:00:13 PUMP OILER CPT-TCMM Transitional Care Mgmt-Moderate 11:20:16 PUMP OILER CPT-42476 First Vx - Ix admin for Medicare patients 17:35:15 CDT CPT-68518 Fluzone Preservative Free Intramuscular Suspension 17:35 :15 CDT CPT-85619 Microalbumin - LAB USE ONLY 11:52:05 CDT CPT-TCMM Transitional Care Mgmt-Moderate 11:33:57 CDT CPT-29228 No Charge Offi Visit 14:11:29 CDT CPT-23290 Magnesium - LAB USE ONLY 10:45:44 CDT CPT-64623 Lipid - LAB USE ONLY 10:45:44 CDT CPT-52699 CBC - LAB USE ONLY 10:45:44 CDT CPT-19498 Venipuncture Draw Fee 10:45:43 CDT CPT-82416 Venipuncture Draw Fee 18:21:27 CDT CPT-JTINJ Asp/Joint Injection 18:38:04 CDT CPT-76156 Immunization Each Additional Inj 17:38:04 CDT CPT-58350 Immunization Single Admin 17:38:04 CDT CPT-87920 Prevnar 13 17:38:04 CDT CPT-07716 Fluzone Quadrivalent preservative free (>=3yrs.) 17:38: 04 CDT CPT-66481 No Charge Offi Visit 11:14:03 CDT CPT-13179 Chest 2V Frontal and Lat 14:00:18 CDT CPT-OV Office Visit 16:10:28 CDT CPT-JTINJ Asp/Joint Injection 09:03:57 CDT CPT-Cryo Cryotherapy 09:35:49 PUMP OILER CPT-JTINJ Asp/Joint Injection 09:34:45 PUMP OILER CPT-J2930 Solu Medrol 125 mg (Methyl Prednisolone Sodium Succinate) 20:37:27 CDT CPT-44195 Abx/Therapy Injection 20:37:27 CDT CPT-58273 Port a cath flush 08:15:51 CDT CPT-45686 Port a cath flush 09:54:16 CDT CPT-34192 Port a cath flush 09:38:02 CDT CPT-91769 Port a cath flush 11:00:27 PUMP OILER
--- OUTSIDE RECORDS SUMMARY | 2017-12-29 01:09 | XMS REPORT | Clinical Summary ---
Author Author Admin, QIE Organization [facility] Address Unknown Phone Unavailable Allergies, Adverse [...] neoplasms of colon Pneumonia 486 Resolved Harinder eHrnandez DO Pneumonia , organism unspecified Bacteremia 790.7 Resolved Harinder Cr Daivd DO Unspecified bacteremia Clostridium difficile colitis 008.45 [...] ] Greater trochanteric bursitis, left 726.5 Resolved Haridner Hernandez DO Enthesopathy of hip region Dysphagia [...] Diarrhea Reflux, esophageal 530.81 Active Harinder Cr Davdi DO Esophageal reflux Hypokalemia 276.8 Active Harinder [...] imperative to have this agent ALBUTEROL SULFATE 45414500844 Active Harinder Hernandez DO Active NIFEDIAC CC 30 MG [id number] 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 NIFEDIPINE 72088340197 Active Harinder Hernandez DO Active AMLODIPINE BESYLATE 5 MG TABS 1 tablet by mouth daily AMLODIPINE BESYLATE 97469068522 No Longer Active Harinder Hernandez DO Active TOPAMAX 25 MG ORAL TABS 1 tab po BID TOPIRAMATE 64470929771 Active Kortney Mccain Active FLUTICASONE PROPIONATE 50 MCG/ACT SUSP 2 sprays per nostril daily PRN Allergies FLUTICASONE PROPIONATE 47310816231 Active Kortney Mccain Active NIFEDIPINE ER 30 MG ORAL [id number] 1 daily NIFEDIPINE 25017931743 No Longer Active Harinder Hernandez DO Active POTASSIUM CHLORIDE 20 MEQ ORAL PACK Take 1 tablet by mouth daily POTASSIUM CHLORIDE 58092589194 Active Ciera Pimentel Active FLOVENT HFA 110 MCG/ACT AERO 2 puffs inhaled b.i.d. FLUTICASONE PROPIONATE HFA 51670094601 Active Harinder Hernandez DO Active POTASSIUM CHLORIDE CR 10 MEQ CPCR 1 capsule by mouth daily POTASSIUM CHLORIDE 90232883606 Active Harinder Hernandez DO Active EPIPEN 2-BRUNA 0.3 MG/0.3ML INJ SOAJ 1 INJ NEEDED EPINEPHRINE 25759694275 Active Harinder Hernandez DO Active PREDNISONE 20 MG TAB 1 tab twice daily for 3 day, then one daily for three days PREDNISONE 81022061744 No Longer Active Harinder Hernandez DO Active PREDNISONE 20 MG TAB 1 tablet twice daily for 2 days, then 1 tablet once daily for 2 days PREDNISONE 19640816568 No Longer Active Harinder Hernandez DO Active ASMANEX 120 METERED DOSES 220 MCG/INH INH AEPB 2 puffs orally twice daily MOMETASONE FUROATE 08369065467 Active Jeri Sosa RPT,RMA Active TOPIRAMATE 25 MG TABS 1 tab po BID TOPIRAMATE 45160543862 No Longer Active Nettie Newberry APRN Active AMLODIPINE BESYLATE 5 MG ORAL TABS Take 1 tab po daily AMLODIPINE BESYLATE 48498013066 No Longer Active Nettie Newberry APRN Active MECLIZINE HCL 25 MG TAB 1 tablet three times daily for 3 days, then 1/2 tab three times daily for 3 days. MECLIZINE HCL 25810587588 No Longer Active Nettie Newberry APRN Active AMITRIPTYLINE HCL 25 MG ORAL TABS 1 q hs prn AMITRIPTYLINE HCL 48380245903 No Longer Active Nettie Nweberry APRN Active DILAUDID 2 MG ORAL TABS Take 1/2 tab po every 4 hours as needed for pain 2014 HYDROMORPHONE HCL 15348034574 No Longer Active Nettie Newberry APRN Active CLOPIDOGREL BISULFATE 75 MG ORAL TABS 1 tab by mouth once daily CLOPIDOGREL BISULFATE 83306980219 Active Harinder Hernandez DO Active ATORVASTATIN CALCIUM 10 MG ORAL TABS 1 at bedtime ATORVASTATIN CALCIUM 71639589165 Active Tawnya Pardo MA Active LOVASTATIN 40 MG ORAL TABS Take 1 tab po every hs LOVASTATIN 22139113435 No Longer Active Harinder Hernandez DO Active PREDNISONE 20 MG TAB 2 tabs daily for 4 days, 1 tab daily for 4 days, 1/2 tab daily for 4 days PREDNISONE 21459396944 No Longer Active Harinder Hernandez DO Active LEVAQUIN 500 MG ORAL TABS Take 1 tab po daily x 8 days LEVOFLOXACIN 41280646492 No Longer Active Harinder Hernandez DO Active VENTOLIN HFA 108 (90 BASE) MCG/ACT AERS 2 -4 puffs four times a day PRN 2013 ALBUTEROL SULFATE 76998736583 No Longer Active Jeri Sosa RPT,RMA Active ACEBUTOLOL HCL 200 MG CAPS 1 cap in the morning and 2 caps in the evening ACEBUTOLOL HCL 04872477618 No Longer Active Harinder Hernandez DO Active CEFDINIR 300 MG ORAL CAPS take 1 cap po bid x 10 days CEFDINIR 08949284865 No Longer Active Harinder Hernandez DO Active LOVASTATIN 40 MG TABS 1 pill by mouth nightly for cholesterol LOVASTATIN 23781284311 No Longer Active Nettie Newberry APRN Active NITROSTAT 0.4 MG SUBL 1 tab under tongueas needed for chest pain ( may take 3 total, 5 min apart, then call 911) NITROGLYCERIN 07986611235 No Longer Active Nettie Newberry APRN Active POTASSIUM CHLORIDE CR 10 MEQ CPCR 1 capsule by mouth daily 02/14 POTASSIUM CHLORIDE 95467929935 No Longer Active Nettie Newberry APRN Active TESSALON PERLES 100 MG CAP 1 to 2 tablets by mouth 3 times daily as needed for cough BENZONATATE 61498175394 No Longer Active Nettie Newberry APRN Active THEOPHYLLINE ER 200 MG ORAL [id number] Take 1 tab every 12 hours THEOPHYLLINE 96143431427 Active Tawnya Pardo MA Active PREDNISONE 20 MG TAB 2 po qd x 5 days PREDNISONE 81067467235 No Longer Active Jae Morgan MD Active AZITHROMYCIN 250 MG TABS 2 po qd x 1 day, then 1 po qd x 4 days AZITHROMYCIN 04052896417 No Longer Active Jae Morgan MD Active PREDNISONE 20 MG TAB 1 tab twice daily for 3 day, then one daily for three days PREDNISONE 96666289784 No Longer Active Jae Morgan MD Active SINGULAIR 10 MG TABS 1 pill by mouth every evening for breathing. MONTELUKAST SODIUM 18502111921 Active Tawnya Pardo MA Active TYLENOL 325 MG TAB 3 by mouth q4h as needed ACETAMINOPHEN 04340257008 Active Harinder Hernandez DO Active POTASSIUM CHLORIDE ER 10 MEQ CR-TABS take 1 tab po daily POTASSIUM CHLORIDE 89717912601 No Longer Active Harinder Hernandez DO Active PREDNISONE 20 MG TAB 1 TID x 2 days, then 1 BID x 3 days, then 1 Daily x 3 days, then stop PREDNISONE 37586510088 No Longer Active Jillina Frazell MANAGER MOTOR Active LEVAQUIN 500 MG TAB 1 tablet by mouth daily LEVOFLOXACIN 24117127351 No Longer Active Jillina Frazell MANAGER MOTOR Active NEURONTIN 300 MG CAP 1 cap by mouth three times daily for restless leg 06/22 GABAPENTIN 91522278480 No Longer Active Harinder Hernandez DO Active BENZONATATE 100 MG CAPS 1 cap po TID PRN BENZONATATE 29631179582 No Longer Active Harinder Hernandez DO Active MONTELUKAST SODIUM 10 MG TABS 1 tab po in the evening MONTELUKAST SODIUM 31603646081 No Longer Active Harinder Hernandez DO Active MUPIROCIN 2 % OINT apply to affected area BID x 14 days MUPIROCIN 49651709149 No Longer Active Harinder Hernandez DO Active TYLENOL EXTRA STRENGTH 500 MG TABS as needed ACETAMINOPHEN 23064499957 No Longer Active Harinder Hernandez DO Active PREDNISONE 10 MG TABS 1 tab po daily PREDNISONE 71573051533 No Longer Active Harinder Hernandez DO Active PREDNISONE 20 MG TAB 2 tabs daily for 4 days, 1 tab daily for 4 days, 1/2 tab daily for 4 days PREDNISONE 46317970153 No Longer Active Harinder Hernandez DO Active AZITHROMYCIN 250 MG TABS 2 po qd x 1 day, then 1 po qd x 4 days AZITHROMYCIN 52414438296 No Longer Active Harinder Hernandez DO Active PREDNISONE 20 MG TAB 3 tabs today, then 1 tab twice daily for 3 day, then one daily for three days PREDNISONE 19513654782 No Longer Active Harinder Hernandez DO Active NIFEDIAC CC 30 MG EE55X-LSH 1 tablet daily for raynaud's syndrome NIFEDIPINE 83001335718 No Longer Active Tawnya Pardo MA Active AMBIEN 10 MG TAB 1/2 tab by mouth at bedtime as needed for sleep ZOLPIDEM TARTRATE 68127328076 Active Kortney Mccain Active CLONAZEPAM 1 MG TABS 1 tablet at bedtime for insomnia and restless legs 09/14 CLONAZEPAM 82820686211 Active Harinder Hernandez DO Active CLONAZEPAM 0.5 MG TABS 1 tab po daily CLONAZEPAM 74282378271 No Longer Active Harinder Hernandez DO Active PREDNISONE 10 MG TAB 1 tablet daily for COPD PREDNISONE 56429087183 Active Ciera Pimentel Active PROAIR HFA 108 (90 BASE) MCG/ACT AERS 2 puffs four times a day as needed 2012 ALBUTEROL SULFATE 02759940447 Active Harinder Hernandez DO Active FLOVENT HFA 110 MCG/ACT AERO 2 puffs inhaled b.i.d. FLUTICASONE PROPIONATE HFA 39644345543 Active Kortney Mccain Active ACIPHEX 20 MG TBEC 1 tab po daily RABEPRAZOLE SODIUM 55643133489 Active Kaylah Newberry Active CLONAZEPAM 0.5 MG TABS 1 tab po daily CLONAZEPAM 0.5 MG TABS 863299 CLONAZEPAM Inactive PREDNISONE 20 MG TAB 3 tabs today, then 1 tab twice daily for 3 day, then one daily for three days PREDNISONE 20 MG TAB 707278 PREDNISONE Inactive PREDNISONE 20 MG TAB 2 tabs daily for 4 days, 1 tab daily for 4 days, 1/2 tab daily for 4 days PREDNISONE 20 MG TAB 723801 PREDNISONE Inactive PREDNISONE 10 MG TABS 1 tab po daily PREDNISONE 10 MG TABS 428852 PREDNISONE Inactive TYLENOL EXTRA STRENGTH 500 MG TABS as needed TYLENOL EXTRA STRENGTH 500 MG TABS 243293 ACETAMINOPHEN Inactive MUPIROCIN 2 % OINT apply to affected area BID x 14 days MUPIROCIN 2 % OINT 574530 MUPIROCIN Inactive MONTELUKAST SODIUM 10 MG TABS 1 tab po in the evening MONTELUKAST SODIUM 10 MG TABS 20010818 MONTELUKAST SODIUM Inactive BENZONATATE 100 MG CAPS 1 cap po TID PRN BENZONATATE 100 MG CAPS 741056 BENZONATATE Inactive NEURONTIN 300 MG CAP 1 cap by mouth three times daily for restless leg 06/22 NEURONTIN 300 MG CAP 877770 GABAPENTIN Inactive LEVAQUIN 500 MG TAB 1 tablet by mouth daily LEVAQUIN 500 MG TAB 799455 LEVOFLOXACIN Inactive PREDNISONE 20 MG TAB 1 TID x 2 days, then 1 BID x 3 days, then 1 Daily x 3 days, then stop PREDNISONE 20 MG TAB 817199 PREDNISONE Inactive POTASSIUM CHLORIDE ER 10 MEQ CR-TABS take 1 tab po daily POTASSIUM CHLORIDE ER 10 MEQ CR-TABS POTASSIUM CHLORIDE Inactive PREDNISONE 20 MG TAB 1 tab twice daily for 3 day, then one daily for three days PREDNISONE 20 MG TAB 305191 PREDNISONE Inactive TESSALON PERLES 100 MG CAP 1 to 2 tablets by mouth 3 times daily as needed for cough TESSALON PERLES 100 MG CAP 292247 BENZONATATE Inactive POTASSIUM CHLORIDE CR 10 MEQ CPCR 1 capsule by mouth daily 02/14 POTASSIUM CHLORIDE CR 10 MEQ CPCR POTASSIUM CHLORIDE Inactive NITROSTAT 0.4 MG SUBL 1 tab under tongueas needed for chest pain ( may take 3 total, 5 min apart, then call 911) NITROSTAT 0.4 MG SUBL 550321 NITROGLYCERIN Inactive LOVASTATIN 40 MG TABS 1 pill by mouth nightly for cholesterol LOVASTATIN 40 MG TABS 532361 LOVASTATIN Inactive CEFDINIR 300 MG ORAL CAPS take 1 cap po bid x 10 days CEFDINIR 300 MG ORAL CAPS 559298 CEFDINIR Inactive ACEBUTOLOL HCL 200 MG CAPS 1 cap in the morning and 2 caps in the evening ACEBUTOLOL HCL 200 MG CAPS 428188 ACEBUTOLOL HCL Inactive VENTOLIN HFA 108 (90 BASE) MCG/ACT AERS 2 -4 puffs four times a day PRN 2013 VENTOLIN HFA 108 (90 BASE) MCG/ACT AERS ALBUTEROL SULFATE Inactive LEVAQUIN 500 MG ORAL TABS Take 1 tab po daily x 8 days LEVAQUIN 500 MG ORAL TABS 531287 LEVOFLOXACIN Inactive PREDNISONE 20 MG TAB 2 tabs daily for 4 days, 1 tab daily for 4 days, 1/2 tab daily for 4 days PREDNISONE 20 MG TAB 202768 PREDNISONE Inactive LOVASTATIN 40 MG ORAL TABS Take 1 tab po every hs LOVASTATIN 40 MG ORAL TABS 722643 LOVASTATIN Inactive DILAUDID 2 MG ORAL TABS Take 1/2 tab po every 4 hours as needed for pain 2014 DILAUDID 2 MG ORAL TABS 496061 HYDROMORPHONE HCL Inactive AMITRIPTYLINE HCL 25 MG ORAL TABS 1 q hs prn AMITRIPTYLINE HCL 25 MG ORAL TABS 341392 AMITRIPTYLINE HCL Inactive MECLIZINE HCL 25 MG TAB 1 tablet three times daily for 3 days, then 1/2 tab three times daily for 3 days. MECLIZINE HCL 25 MG TAB 200290 MECLIZINE HCL Inactive AMLODIPINE BESYLATE 5 MG ORAL TABS Take 1 tab po daily AMLODIPINE BESYLATE 5 MG ORAL TABS 892324 AMLODIPINE BESYLATE Inactive TOPIRAMATE 25 MG TABS 1 tab po BID TOPIRAMATE 25 MG TABS 770163 TOPIRAMATE Inactive PREDNISONE 20 MG TAB 1 tablet twice daily for 2 days, then 1 tablet once daily for 2 days PREDNISONE 20 MG TAB 457426 PREDNISONE Inactive PREDNISONE 20 MG TAB 1 tab twice daily for 3 day, then one daily for three days PREDNISONE 20 MG TAB 607086 PREDNISONE Inactive NIFEDIPINE ER 30 MG ORAL [id number] 1 daily NIFEDIPINE ER 30 MG ORAL [id number] NIFEDIPINE Inactive AMLODIPINE BESYLATE 5 MG TABS 1 tablet by mouth daily AMLODIPINE BESYLATE 5 MG TABS 829630 AMLODIPINE BESYLATE Inactive AZITHROMYCIN 250 MG TABS 2 po qd x 1 day, then 1 po qd x 4 days AZITHROMYCIN 250 MG TABS 0055384 AZITHROMYCIN Inactive AZITHROMYCIN 250 MG TABS 2 po qd x 1 day, then 1 po qd x 4 days AZITHROMYCIN 250 MG TABS 5902507 AZITHROMYCIN Inactive PREDNISONE 20 MG TAB 2 po qd x 5 days PREDNISONE 20 MG TAB 156675 PREDNISONE Inactive Vital Signs Date Name Value [...] Panel - Chemistry sodium, serum 137 mmol/L 139-827 1957/01/03 potassium, serum 3.4 mmol/L 3.5-5.2 chloride, serum [...] Magnesium - Chemistry cholesterol, serum 180 mg/dL 210-689 8210/08/08 triglyceride, serum, fasting 92 mg/dL 30-200 HDL cholesterol, serum 66 mg/dL 32-96 LDL cholesterol, serum 96 mg/dL 0-130 sodium, serum 142 mmol/L 214-985 0102/08/08 carbon dioxide, venous blood 27.4 mmol/L 21.0-32.0 [...] 10.0-20.0 Encounters Code Encounter Date Provider Facility CPT-17107 Level 4 Est. Patient 10:19:23 CDT Harinder Cr [facility] CPT-19256 Level 3 Est. Patient 09:58:58 CDT Harinder Cr [facility] CPT-39819 Level 3 Est. Patient 12:37:21 CDT Harinder Cr [facility] CPT-76781 Level 3 Est. Patient 18:37:17 CDT Harinder [facility] CPT-04933 Level 4 Est. Patient 11:15:54 CDT Nettie Newberry [facility] CPT-75746 Level 3 Est. Patient 16:42:24 CDT Harinder Hernandez [facility] CPT-66617 Level 3 Est. Patient 15:03:36 CDT Harinder Hernandez [facility] CPT-07535 Level 3 Est. Patient 15:03:20 CDT Harinder Hernandez [facility] CPT-71442 Level 3 Est. Patient 12:14:34 CDT Harinder Hernandez [facility] CPT-60661 Level 3 Est. Patient 13:47:15 CDT Harinder Hernandez [facility] CPT-31036 Level 3 Est. Patient 14:08:24 CDT Harinder Hernandez [facility] CPT-62202 Level 3 Est. Patient 10:07:15 CDT Harinder Hernandez [facility] CPT-11594 Level 3 Est. Patient 10:06:59 CDT Harinder Shaye David [facility] CPT-86799 Level 3 Est. Patient 15:53:29 CDT Jae Morgan MD [facility] CPT-80611 Level 3 Est. Patient 17:19:04 CDT Harinder Hernandez [facility] CPT-50258 Level 3 Est. Patient 11:13:01 CDT Harinder Hernandez [facility] CPT-23077 Level 3 Est. Patient 09:03:58 CDT Harinder Hernandez [facility] CPT-51333 Level 3 Est. Patient 14:46:45 FIREWORKS INSPECTOR Harinder Hernandez [facility] CPT-04290 Level 3 Est. Patient 09:35:49 FIREWORKS INSPECTOR Harinder Hernandez [facility] CPT-60638 Level 3 Est. Patient 09:29:37 FIREWORKS INSPECTOR Harinder Hernandez [facility] CPT-63482 Level 3 Est. Patient 15:51:07 CDT Harinder Hernandez [facility] CPT-43862 Level 3 Est. Patient 18:13:13 CDT Harinder Hernandez [facility] CPT-93203 Level 3 Est. Patient 10:44:19 CDT Harinder Hernandez [facility] CPT-22926 Level 4 Est. Patient 10:07:19 FIREWORKS INSPECTOR Harinder Cr [facility] CPT-44289 Level 3 Est. Patient 15:59:32 FIREWORKS INSPECTOR Harinder Cr [facility] Procedures Code Procedure Name Date Entry Date Standard Description CPT-23379 Hip, complete, 2-3 views - XRAY USE ONLY 10:28:40 CDT CPT-01863 BMP - LAB USE ONLY 16:45:09 FIREWORKS INSPECTOR CPT-11241 Port a cath flush 12:00:13 FIREWORKS INSPECTOR CPT-TCMM Transitional Care Mgmt-Moderate 11:20:16 FIREWORKS INSPECTOR CPT-38195 First Vx - Ix admin for Medicare patients 17:35:15 CDT CPT-41757 Fluzone Preservative Free Intramuscular Suspension 17:35 :15 CDT CPT-49496 Microalbumin - LAB USE ONLY 11:52:05 CDT CPT-TCMM Transitional Care Mgmt-Moderate 11:33:57 CDT CPT-87418 No Charge Offi Visit 14:11:29 CDT CPT-79504 Magnesium - LAB USE ONLY 10:45:44 CDT CPT-90809 Lipid - LAB USE ONLY 10:45:44 CDT CPT-46034 CBC - LAB USE ONLY 10:45:44 CDT CPT-15249 Venipuncture Draw Fee 10:45:43 CDT CPT-34660 Venipuncture Draw Fee 18:21:27 CDT CPT-JTINJ Asp/Joint Injection 18:38:04 CDT CPT-23595 Immunization Each Additional Inj 17:38:04 CDT CPT-35127 Immunization Single Admin 17:38:04 CDT CPT-31643 Prevnar 13 17:38:04 CDT CPT-94459 Fluzone Quadrivalent preservative free (>=3yrs.) 17:38: 04 CDT CPT-62416 No Charge Offi Visit 11:14:03 CDT CPT-79075 Chest 2V Frontal and Lat 14:00:18 CDT CPT-OV Office Visit 16:10:28 CDT CPT-JTINJ Asp/Joint Injection 09:03:57 CDT CPT-Cryo Cryotherapy 09:35:49 FIREWORKS INSPECTOR CPT-JTINJ Asp/Joint Injection 09:34:45 FIREWORKS INSPECTOR CPT-J2930 Solu Medrol 125 mg (Methyl Prednisolone Sodium Succinate) 20:37:27 CDT CPT-94397 Abx/Therapy Injection 20:37:27 CDT CPT-53928 Port a cath flush 08:15:51 CDT CPT-81219 Port a cath flush 09:54:16 CDT CPT-03614 Port a cath flush 09:38:02 CDT CPT-96816 Port a cath flush 11:00:27 FIREWORKS INSPECTOR
--- OUTSIDE RECORDS SUMMARY | 2017-12-29 01:11 | XMS REPORT | Clinical Summary ---
Author Author Admin, QIE Organization [facility] Address Unknown Phone Unavailable Allergies, Adverse Reactions, [...] , organism unspecified Bacteremia 790.7 Resolved Harinder rC David DO Unspecified bacteremia Clostridium difficile colitis [...] syndrome Edema leg 782.3 Resolved Jeri Sosa Scribe Edema Tendonitis 726.90 Active Harinder Hernandez DO [...] site Gastroenteritis, viral, acute 008.8 Active Jeri Sosa Scribe Intestinal infection due to other organism, not [...] Shaye David DO Pneumonia ICD-486 Inactive Harinder W [...] TABLET 1 tablet by mouth daily SPIRONOLACTONE 71280357499 No Longer Active Jeri Nieto Active PREDNISONE 20 MG ORAL TABLET 2 tablets by mouth today, then 1 tablet by mouth days 2-3 PREDNISONE 58906020273 No Longer Active Jeri Nieto Active NITROSTAT 0.4 MG SUBLINGUAL TABLET SUBLINGUAL 1 tab SL q5min PRN chest pain NITROGLYCERIN 66341745177 Active Meenu Alejo LPN Active THEOPHYLLINE ER 300 MG ORAL TABLET EXTENDED RELEASE 12 HOUR 1 po BID THEOPHYLLINE 19462474170 Active Kortney Mccain Active POTASSIUM CHLORIDE ER 20 MEQ ORAL TABLET EXTENDED RELEASE 1 po q day POTASSIUM CHLORIDE 19833190219 Active Kortney Mccain Active POTASSIUM CHLORIDE 20 MEQ ORAL PACKET 1 tab po q day POTASSIUM CHLORIDE 97260461368 No Longer Active Kortney Mccain Active POTASSIUM CHLORIDE ER 10 MEQ ORAL CAPSULE EXTENDED RELEASE 1 capsule BID 2016 POTASSIUM CHLORIDE 49540378298 No Longer Active Kortney Mccain Active LASIX 20 MG ORAL TABLET 1 tablet by mouth every morning FUROSEMIDE 91954178858 No Longer Active Kortney Mccain Active FLUOXETINE HCL 10 MG ORAL CAPSULE 1 po qd for depression/anxiety FLUOXETINE HCL 25290547785 Active Harinder Hernandez DO Active VOLTAREN 1 % TRANSDERMAL GEL apply q 6-8 hour to left arm as needed for pain DICLOFENAC SODIUM 97497144990 Active Kortney Mccain Active ALBUTEROL SULFATE (2.5 MG/3ML) 0.083% INHALATION NEBULIZATION SOLUTION 1 vial neb q 4hrs for severe asthma. 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 NIFEDIPINE 35814365585 Active Kortney Mccain Active AMLODIPINE BESYLATE 5 MG ORAL TABLET 1 tablet by mouth daily 2016 AMLODIPINE BESYLATE 58889320263 No Longer Active Harinder Hernandez DO Active TOPAMAX 25 MG ORAL TABLET 1 tab po BID TOPIRAMATE 72785645005 Active Kortney Mccain Active FLUTICASONE PROPIONATE 50 MCG/ACT NASAL SUSPENSION 2 sprays per nostril daily PRN Allergies FLUTICASONE PROPIONATE 52584268625 Active Meenu Alejo LPN Active NIFEDIPINE ER 30 MG ORAL TABLET EXTENDED RELEASE 24 HOUR 1 daily NIFEDIPINE 10027163906 No Longer Active Harinder Hernandez DO Active FLOVENT HFA 110 MCG/ACT INHALATION AEROSOL 2 puffs inhaled b.i.d. FLUTICASONE PROPIONATE HFA 61151398376 Active Harinder Hernandez DO Active EPIPEN 2-BRUNA 0.3 MG/0.3ML INJECTION SOLUTION AUTO-INJECTOR 1 INJ NEEDED EPINEPHRINE 61052653906 Active Kortney Mccain Active PREDNISONE 20 MG ORAL TABLET 1 tab twice daily for 3 day, then one daily for three days PREDNISONE 04380644568 No Longer Active Harinder Hernandez DO Active PREDNISONE 20 MG ORAL TABLET 1 tablet twice daily for 2 days, then 1 tablet once daily for 2 days PREDNISONE 88672590740 No Longer Active Harinder Hernandez DO Active ASMANEX 120 METERED DOSES 220 MCG/INH INHALATION AEROSOL POWDER BREATH ACTIVATED 2 puffs orally twice daily MOMETASONE FUROATE 20949247639 Active Jeri Sosa LPN Active TOPIRAMATE 25 MG ORAL TABLET 1 tab po BID TOPIRAMATE 03506207846 No Longer Active Nettie Newberry MAHENDRA Active AMLODIPINE BESYLATE 5 MG ORAL TABLET Take 1 tab po daily AMLODIPINE BESYLATE 69176640995 No Longer Active Nettie Newberry MAHENDRA Active MECLIZINE HCL 25 MG ORAL TABLET 1 tablet three times daily for 3 days, then 1/ 2 tab three times daily for 3 days. MECLIZINE HCL 94935148899 No Longer Active Nettieog Newberry APRN Active AMITRIPTYLINE HCL 25 MG ORAL TABLET 1 q hs prn AMITRIPTYLINE HCL 75628741233 No Longer Active Nettie Newberry MAHENDRA Active DILAUDID 2 MG ORAL TABLET Take 1/2 tab po every 4 hours as needed for pain HYDROMORPHONE HCL 72040790951 No Longer Active Nettieog Newberry APRN Active CLOPIDOGREL BISULFATE 75 MG ORAL TABLET 1 tab by mouth once daily CLOPIDOGREL BISULFATE 55705308490 Active Meenu Alejo LPN Active ATORVASTATIN CALCIUM 10 MG ORAL TABLET 1 at bedtime ATORVASTATIN CALCIUM 16577062093 Active Kortney Mccain Active LOVASTATIN 40 MG ORAL TABLET Take 1 tab po every hs LOVASTATIN 99584369508 No Longer Active Harinder Hernandez DO Active PREDNISONE 20 MG ORAL TABLET 2 tabs daily for 4 days, 1 tab daily for 4 days, 1/2 tab daily for 4 days PREDNISONE 06594171395 No Longer Active Harinder Hernandez DO Active LEVAQUIN 500 MG ORAL TABLET Take 1 tab po daily x 8 days LEVOFLOXACIN 73365139788 No Longer Active Harinder Hernandez DO Active VENTOLIN HFA 108 (90 Base) MCG/ACT INHALATION AEROSOL SOLUTION 2 -4 puffs four times a day PRN ALBUTEROL SULFATE 30554632736 No Longer Active Jeri Sosa LPN Active ACEBUTOLOL HCL 200 MG ORAL CAPSULE 1 cap in the morning and 2 caps in the evening ACEBUTOLOL HCL 25603853228 No Longer Active Harinder W David DO Active CEFDINIR 300 MG ORAL CAPSULE take 1 cap po bid x 10 days CEFDINIR 58348119841 No Longer Active Harinder Hernandez DO Active LOVASTATIN 40 MG ORAL TABLET 1 pill by mouth nightly for cholesterol LOVASTATIN 31798450252 No Longer Active Nettie Newberry APRN Active NITROSTAT 0.4 MG SUBLINGUAL TABLET SUBLINGUAL 1 tab under tongueas needed for chest pain ( may take 3 total, 5 min apart, then call 911) NITROGLYCERIN 89009670714 No Longer Active Nettie Newberry APRN Active POTASSIUM CHLORIDE ER 10 MEQ ORAL CAPSULE EXTENDED RELEASE 1 capsule by mouth daily POTASSIUM CHLORIDE 31492453226 No Longer Active Nettie Newberry APRN Active TESSALON PERLES 100 MG ORAL CAPSULE 1 to 2 tablets by mouth 3 times daily as needed for cough BENZONATATE 62107097811 No Longer Active Nettie Newberry APRN Active PREDNISONE 20 MG ORAL TABLET 2 po qd x 5 days PREDNISONE 75312098249 No Longer Active Jae Morgan MD Active AZITHROMYCIN 250 MG ORAL TABLET 2 po qd x 1 day, then 1 po qd x 4 days 12/30 AZITHROMYCIN 34483316497 No Longer Active Jae Morgan MD Active PREDNISONE 20 MG ORAL TABLET 1 tab twice daily for 3 day, then one daily for three days PREDNISONE 87207140183 No Longer Active Jae Morgan MD Active SINGULAIR 10 MG ORAL TABLET 1 pill by mouth every evening for breathing. 2014 MONTELUKAST SODIUM 70959847666 Active Meenu Alejo LPN Active TYLENOL 325 MG ORAL TABLET 3 by mouth q4h as needed ACETAMINOPHEN 13731396655 Active Harinder Hernandez DO Active POTASSIUM CHLORIDE ER 10 MEQ ORAL TABLET EXTENDED RELEASE take 1 tab po daily POTASSIUM CHLORIDE 40684334009 No Longer Active Harinder Hernandez DO Active PREDNISONE 20 MG ORAL TABLET 1 TID x 2 days, then 1 BID x 3 days, then 1 Daily x 3 days, then stop PREDNISONE 14715207598 No Longer Active John Montemayor APRN Active LEVAQUIN 500 MG ORAL TABLET 1 tablet by mouth daily LEVOFLOXACIN 91013328562 No Longer Active Jillina Sim MCCRAY Active NEURONTIN 300 MG ORAL CAPSULE 1 cap by mouth three times daily for restless leg GABAPENTIN 13672447509 No Longer Active Harinder Hernandez DO Active BENZONATATE 100 MG ORAL CAPSULE 1 cap po TID PRN BENZONATATE 90739279590 No Longer Active Harinder Hernandez DO Active MONTELUKAST SODIUM 10 MG ORAL TABLET 1 tab po in the evening 2014 MONTELUKAST SODIUM 52752841706 No Longer Active Harinder Hernandez DO Active MUPIROCIN 2 % EXTERNAL OINTMENT apply to affected area BID x 14 days MUPIROCIN 10904047841 No Longer Active Harinder Hernandez DO Active TYLENOL EXTRA STRENGTH 500 MG ORAL TABLET as needed ACETAMINOPHEN 20909374821 No Longer Active Harinder Hernandez DO Active PREDNISONE 10 MG ORAL TABLET 1 tab po daily PREDNISONE 31139653112 No Longer Active Harinder Hernandez DO Active PREDNISONE 20 MG ORAL TABLET 2 tabs daily for 4 days, 1 tab daily for 4 days, 1/2 tab daily for 4 days PREDNISONE 87524621691 No Longer Active Harinder Hernandez DO Active AZITHROMYCIN 250 MG ORAL TABLET 2 po qd x 1 day, then 1 po qd x 4 days 04/06 AZITHROMYCIN 58769436124 No Longer Active Harinder Hernandez DO Active PREDNISONE 20 MG ORAL TABLET 3 tabs today, then 1 tab twice daily for 3 day, then one daily for three days PREDNISONE 82467129268 No Longer Active Harinder Hernandez DO Active NIFEDIAC CC 30 MG ORAL TABLET EXTENDED RELEASE 24 HOUR 1 tablet daily for raynaud's syndrome NIFEDIPINE 14647899119 No Longer Active Tawnya Pardo MA Active AMBIEN 10 MG ORAL TABLET 1/2 tab by mouth at bedtime as needed for sleep 2013 ZOLPIDEM TARTRATE 76243121521 Active Meenu Villarrealnader CHEN Active CLONAZEPAM 1 MG ORAL TABLET 1 tablet at bedtime for insomnia and restless legs CLONAZEPAM 02572376333 Active Harinder Hernandez DO Active CLONAZEPAM 0.5 MG ORAL TABLET 1 tab po daily CLONAZEPAM 05933355907 No Longer Active Harinder Hernandez DO Active PREDNISONE 10 MG ORAL TABLET 1 tablet daily for COPD PREDNISONE 95023689356 Active Kortney Mccain Active PROAIR HFA 108 (90 Base) MCG/ACT INHALATION AEROSOL SOLUTION 2 puffs four times a day as needed ALBUTEROL SULFATE 62581367193 Active Harinder Hernandez DO Active FLOVENT HFA 110 MCG/ACT INHALATION AEROSOL 2 puffs inhaled b.i.d. FLUTICASONE PROPIONATE HFA 69225074099 Active Kortney Mccain Active ACIPHEX 20 MG ORAL TABLET DELAYED RELEASE 1 tab po daily RABEPRAZOLE SODIUM 06642164957 Active Kaylah Newberry Active CLONAZEPAM 0.5 MG ORAL TABLET 1 tab po daily CLONAZEPAM 0.5 MG ORAL TABLET 315942 CLONAZEPAM Inactive PREDNISONE 20 MG ORAL TABLET 3 tabs today, then 1 tab twice daily for 3 day, then one daily for three days PREDNISONE 20 MG ORAL TABLET 377132 PREDNISONE Inactive PREDNISONE 20 MG ORAL TABLET 2 tabs daily for 4 days, 1 tab daily for 4 days, 1/2 tab daily for 4 days PREDNISONE 20 MG ORAL TABLET 885907 PREDNISONE Inactive PREDNISONE 10 MG ORAL TABLET 1 tab po daily PREDNISONE 10 MG ORAL TABLET 672931 PREDNISONE Inactive TYLENOL EXTRA STRENGTH 500 MG ORAL TABLET as needed TYLENOL EXTRA STRENGTH 500 MG ORAL TABLET 369463 ACETAMINOPHEN Inactive MUPIROCIN 2 % EXTERNAL OINTMENT apply to affected area BID x 14 days MUPIROCIN 2 % EXTERNAL OINTMENT 949998 MUPIROCIN Inactive MONTELUKAST SODIUM 10 MG ORAL TABLET 1 tab po in the evening 2014 MONTELUKAST SODIUM 10 MG ORAL TABLET 066010 MONTELUKAST SODIUM Inactive BENZONATATE 100 MG ORAL CAPSULE 1 cap po TID PRN BENZONATATE 100 MG ORAL CAPSULE 166410 BENZONATATE Inactive NEURONTIN 300 MG ORAL CAPSULE 1 cap by mouth three times daily for restless leg NEURONTIN 300 MG ORAL CAPSULE 738335 GABAPENTIN Inactive LEVAQUIN 500 MG ORAL TABLET 1 tablet by mouth daily LEVAQUIN 500 MG ORAL TABLET 240416 LEVOFLOXACIN Inactive PREDNISONE 20 MG ORAL TABLET 1 TID x 2 days, then 1 BID x 3 days, then 1 Daily x 3 days, then stop PREDNISONE 20 MG ORAL TABLET 171395 PREDNISONE Inactive POTASSIUM CHLORIDE ER 10 MEQ ORAL TABLET EXTENDED RELEASE take 1 tab po daily POTASSIUM CHLORIDE ER 10 MEQ ORAL TABLET EXTENDED RELEASE POTASSIUM CHLORIDE Inactive PREDNISONE 20 MG ORAL TABLET 1 tab twice daily for 3 day, then one daily for three days PREDNISONE 20 MG ORAL TABLET 327536 PREDNISONE Inactive TESSALON PERLES 100 MG ORAL CAPSULE 1 to 2 tablets by mouth 3 times daily as needed for cough TESSALON PERLES 100 MG ORAL CAPSULE 539646 BENZONATATE Inactive POTASSIUM CHLORIDE ER 10 MEQ ORAL CAPSULE EXTENDED RELEASE 1 capsule by mouth daily POTASSIUM CHLORIDE ER 10 MEQ ORAL CAPSULE EXTENDED RELEASE POTASSIUM CHLORIDE Inactive NITROSTAT 0.4 MG SUBLINGUAL TABLET SUBLINGUAL 1 tab under tongueas needed for chest pain ( may take 3 total, 5 min apart, then call 911) NITROSTAT 0.4 MG SUBLINGUAL TABLET SUBLINGUAL 339855 NITROGLYCERIN Inactive LOVASTATIN 40 MG ORAL TABLET 1 pill by mouth nightly for cholesterol LOVASTATIN 40 MG ORAL TABLET 196175 LOVASTATIN Inactive CEFDINIR 300 MG ORAL CAPSULE take 1 cap po bid x 10 days CEFDINIR 300 MG ORAL CAPSULE 223439 CEFDINIR Inactive ACEBUTOLOL HCL 200 MG ORAL CAPSULE 1 cap in the morning and 2 caps in the evening ACEBUTOLOL HCL 200 MG ORAL CAPSULE 400074 ACEBUTOLOL HCL Inactive VENTOLIN HFA 108 (90 Base) MCG/ACT INHALATION AEROSOL SOLUTION 2 -4 puffs four times a day PRN VENTOLIN HFA 108 (90 Base) MCG/ ACT INHALATION AEROSOL SOLUTION ALBUTEROL SULFATE Inactive LEVAQUIN 500 MG ORAL TABLET Take 1 tab po daily x 8 days LEVAQUIN 500 MG ORAL TABLET 415100 LEVOFLOXACIN Inactive PREDNISONE 20 MG ORAL TABLET 2 tabs daily for 4 days, 1 tab daily for 4 days, 1/2 tab daily for 4 days PREDNISONE 20 MG ORAL TABLET 508441 PREDNISONE Inactive LOVASTATIN 40 MG ORAL TABLET Take 1 tab po every hs LOVASTATIN 40 MG ORAL TABLET 163996 LOVASTATIN Inactive DILAUDID 2 MG ORAL TABLET Take 1/2 tab po every 4 hours as needed for pain DILAUDID 2 MG ORAL TABLET 293328 HYDROMORPHONE HCL Inactive AMITRIPTYLINE HCL 25 MG ORAL TABLET 1 q hs prn AMITRIPTYLINE HCL 25 MG ORAL TABLET 459817 AMITRIPTYLINE HCL Inactive MECLIZINE HCL 25 MG ORAL TABLET 1 tablet three times daily for 3 days, then 1/ 2 tab three times daily for 3 days. MECLIZINE HCL 25 MG ORAL TABLET 747820 MECLIZINE HCL Inactive AMLODIPINE BESYLATE 5 MG ORAL TABLET Take 1 tab po daily AMLODIPINE BESYLATE 5 MG ORAL TABLET 480901 AMLODIPINE BESYLATE Inactive TOPIRAMATE 25 MG ORAL TABLET 1 tab po BID TOPIRAMATE 25 MG ORAL TABLET 684899 TOPIRAMATE Inactive PREDNISONE 20 MG ORAL TABLET 1 tablet twice daily for 2 days, then 1 tablet once daily for 2 days PREDNISONE 20 MG ORAL TABLET 509641 PREDNISONE Inactive PREDNISONE 20 MG ORAL TABLET 1 tab twice daily for 3 day, then one daily for three days PREDNISONE 20 MG ORAL TABLET 734408 PREDNISONE Inactive NIFEDIPINE ER 30 MG ORAL TABLET EXTENDED RELEASE 24 HOUR 1 daily NIFEDIPINE ER 30 MG ORAL TABLET EXTENDED RELEASE 24 HOUR NIFEDIPINE Inactive AMLODIPINE BESYLATE 5 MG ORAL TABLET 1 tablet by mouth daily 2016 AMLODIPINE BESYLATE 5 MG ORAL TABLET 001287 AMLODIPINE BESYLATE Inactive LASIX 20 MG ORAL TABLET 1 tablet by mouth every morning LASIX 20 MG ORAL TABLET 770658 FUROSEMIDE Inactive POTASSIUM CHLORIDE ER 10 MEQ ORAL CAPSULE EXTENDED RELEASE 1 capsule BID 2016 POTASSIUM CHLORIDE ER 10 MEQ ORAL CAPSULE EXTENDED RELEASE POTASSIUM CHLORIDE Inactive POTASSIUM CHLORIDE 20 MEQ ORAL PACKET 1 tab po q day POTASSIUM CHLORIDE 20 MEQ ORAL PACKET 0214909 POTASSIUM CHLORIDE Inactive PREDNISONE 20 MG ORAL TABLET 2 tablets by mouth today, then 1 tablet by mouth days 2-3 PREDNISONE 20 MG ORAL TABLET 825295 PREDNISONE Inactive SPIRONOLACTONE 25 MG ORAL TABLET 1 tablet by mouth daily SPIRONOLACTONE 25 MG ORAL TABLET 691234 SPIRONOLACTONE Inactive AZITHROMYCIN 250 MG ORAL TABLET 2 po qd x 1 day, then 1 po qd x 4 days 04/06 AZITHROMYCIN 250 MG ORAL TABLET 619219 AZITHROMYCIN Inactive AZITHROMYCIN 250 MG ORAL TABLET 2 po qd x 1 day, then 1 po qd x 4 days 12/30 AZITHROMYCIN 250 MG ORAL TABLET 622873 AZITHROMYCIN Inactive PREDNISONE 20 MG ORAL TABLET 2 po qd x 5 days PREDNISONE 20 MG ORAL TABLET 324366 PREDNISONE Inactive Vital Signs Date Name Value [...] Panel - Chemistry sodium, serum 140 mmol/L 661-957 7322/07/13 potassium, serum 3.2 mmol/L 3.5-5.2 chloride, serum 103 mmol/L 98-107 carbon dioxide, venous blood 26.9 mmol/L 21.0-32.0 blood glucose 93 mg/dL 65-110 calcium, serum 9.2 mg/dL 8.5-10.1 urea nitrogen, blood 13 mg/dL 7-18 creatinine, serum 0.84 mg/dL 0.60-1.30 sodium, serum 140 mmol/L 837-558 8780/08/21 potassium, serum 3.8 mmol/L 3.5-5.2 chloride, serum [...] ... - Chemistry sodium, serum 141 mmol/L 433-998 1412/08/07 carbon dioxide, venous blood 34.0 mmol/L 21.0-32.0 potassium, serum 2.7 mmol/L 3.5-5.2 chloride, serum 99 mmol/L 98-107 blood glucose 88 mg/dL 65-110 urea nitrogen, blood 11 mg/dL 7-18 creatinine, serum 0.97 mg/dL 0.60-1.30 alanine aminotransferase (SGPT), serum 24 U/L -78 aspartate aminotransferase (SGOT), serum 24 U/L 15-37 calcium, serum 9.2 mg/dL 8.5-10.1 bilirubin, serum, total 0.90 mg/dL 0.00-1.00 TSH 0.80 m[iU]/mL 0.36-3.74 Lab Report: HEPATIC PANEL, Lipid Panel - Chemistry aspartate aminotransferase (SGOT), serum 19 U/L 15-37 alanine aminotransferase (SGPT), serum 23 U/L -78 bilirubin, serum, total 1.40 mg/dL 0.00-1.00 cholesterol, serum 192 mg/dL 861-482 1285/10/19 triglyceride, serum, fasting 71 mg/dL 30-200 HDL cholesterol, serum 72 mg/dL 32-60 LDL cholesterol, serum 106 mg/dL 0-130 Lab Report: THEOPHYLLINE - Toxicology theophylline level, serum 3.1 ug/mL 10.0-20.0 Encounters Code Encounter Date Provider Facility CPT-56767 Level 3 Est. Patient 12:36:15 OUTSOLE MOLDER Harinder W David [facility] CPT-77678 Level 3 Est. Patient 15:14:45 OUTSOLE MOLDER Harinder Hernandez [facility] CPT-90876 Level 4 Est. Patient 14:45:25 CDT Harinder Hernandez [facility] CPT-33922 Level 4 Est. Patient 09:15:13 CDT Harinder Hernandez [facility] CPT-98693 Level 3 Est. Patient 11:51:58 CDT Harinder Hernandez [facility] CPT-84408 Level 3 Est. Patient 11:30:05 CDT Harinder Hernandez [facility] CPT-74313 Level 4 Est. Patient 10:19:23 CDT Harinder Hernandez [facility] CPT-56287 Level 3 Est. Patient 09:58:58 CDT Harinder Cr [facility] CPT-00671 Level 3 Est. Patient 12:37:21 CDT Harinder Cr [facility] CPT-46417 Level 3 Est. Patient 18:37:17 CDT Harinder Cr [facility] CPT-21631 Level 4 Est. Patient 11:15:54 CDT Nettie Newberry [facility] CPT-20312 Level 3 Est. Patient 16:42:24 CDT Harinder Cr [facility] CPT-53218 Level 3 Est. Patient 15:03:36 CDT Harinder Hernandez [facility] CPT-97507 Level 3 Est. Patient 15:03:20 CDT Harinder Cr [facility] CPT-79561 Level 3 Est. Patient 12:14:34 CDT Harinder Cr [facility] CPT-49904 Level 3 Est. Patient 13:47:15 CDT Harinder Cr [facility] CPT-11477 Level 3 Est. Patient 14:08:24 CDT Harinder Cr [facility] CPT-28853 Level 3 Est. Patient 10:07:15 CDT Harinder Shaye David [facility] CPT-52592 Level 3 Est. Patient 10:06:59 CDT Harinder Hernanedz [facility] CPT-47669 Level 3 Est. Patient 15:53:29 CDT Jae Morgan MD [facility] CPT-70944 Level 3 Est. Patient 17:19:04 CDT Harinder Cr David [facility] CPT-02167 Level 3 Est. Patient 11:13:01 CDT Harinder Cr David [facility] CPT-18333 Level 3 Est. Patient 09:03:58 CDT Harinder Hernandez [facility] CPT-40485 Level 3 Est. Patient 14:46:45 OUTSOLE MOLDER Harinder Cr David [facility] CPT-13640 Level 3 Est. Patient 09:35:49 OUTSOLE MOLDER Harinder Cr David [facility] CPT-21031 Level 3 Est. Patient 09:29:37 OUTSOLE MOLDER Harinder Hernandez [facility] CPT-67825 Level 3 Est. Patient 15:51:07 CDT Harinder Cr David [facility] CPT-30633 Level 3 Est. Patient 18:13:13 CDT Harinder Cr [facility] CPT-63592 Level 3 Est. Patient 10:44:19 CDT Harinder Hernandez [facility] CPT-21960 Level 4 Est. Patient 10:07:19 OUTSOLE MOLDER Harinder Cr [facility] CPT-93876 Level 3 Est. Patient 15:59:32 OUTSOLE MOLDER Harinder Cr [facility] Procedures Code Procedure Name Date Entry Date Standard Description CPT-00421 Abd compl w upright - XRAY USE ONLY 14:48:09 CDT 02/18 CPT-43881 Port a cath flush 13:46:05 CDT CPT-04038 Hip, complete, 2-3 views - XRAY USE ONLY 10:28:40 CDT CPT-75583 BMP - LAB USE ONLY 16:45:09 OUTSOLE MOLDER CPT-85328 Port a cath flush 12:00:13 OUTSOLE MOLDER CPT-TCMM Transitional Care Mgmt-Moderate 11:20:16 OUTSOLE MOLDER CPT-46604 First Vx - Ix admin for Medicare patients 17:35:15 CDT CPT-61062 Fluzone Preservative Free Intramuscular Suspension 17:35 :15 CDT CPT-11933 Microalbumin - LAB USE ONLY 11:52:05 CDT CPT-TCMM Transitional Care Mgmt-Moderate 11:33:57 CDT CPT-65864 No Charge Offi Visit 14:11:29 CDT CPT-68877 Magnesium - LAB USE ONLY 10:45:44 CDT CPT-80251 Lipid - LAB USE ONLY 10:45:44 CDT CPT-98915 CBC - LAB USE ONLY 10:45:44 CDT CPT-71983 Venipuncture Draw Fee 10:45:43 CDT CPT-21433 Venipuncture Draw Fee 18:21:27 CDT CPT-JTINJ Asp/Joint Injection 18:38:04 CDT CPT-92341 Immunization Each Additional Inj 17:38:04 CDT CPT-68413 Immunization Single Admin 17:38:04 CDT CPT-98437 Prevnar 13 17:38:04 CDT CPT-24132 Fluzone Quadrivalent preservative free (>=3yrs.) 17:38: 04 CDT CPT-76676 No Charge Offi Visit 11:14:03 CDT CPT-42285 Chest 2V Frontal and Lat 14:00:18 CDT CPT-OV Office Visit 16:10:28 CDT CPT-JTINJ Asp/Joint Injection 09:03:57 CDT CPT-Cryo Cryotherapy 09:35:49 OUTSOLE MOLDER CPT-JTINJ Asp/Joint Injection 09:34:45 OUTSOLE MOLDER CPT-J2930 Solu Medrol 125 mg (Methyl Prednisolone Sodium Succinate) 20:37:27 CDT CPT-11854 Abx/Therapy Injection 20:37:27 CDT CPT-72581 Port a cath flush 08:15:51 CDT CPT-12249 Port a cath flush 09:54:16 CDT CPT-58124 Port a cath flush 09:38:02 CDT CPT-78776 Port a cath flush 11:00:27 OUTSOLE MOLDER
--- OUTSIDE RECORDS SUMMARY | 2017-12-29 01:13 | XMS REPORT | Clinical Summary ---
Author Author Admin, QIE Organization [facility] Address Unknown Phone Unavailable Allergies, Adverse [...] TAB 1 tablet by mouth daily SPIRONOLACTONE [id number] Prince Pimentel Active POTASSIUM CHLORIDE CR 10 MEQ CPCR 1 capsule BID POTASSIUM CHLORIDE 55164098358 Prince Mccain Active FLUOXETINE HCL 10 MG ORAL CAPS 1 po qd for depression/anxiety FLUOXETINE HCL 43810371905 Active Harinder Hernandez DO Active VOLTAREN 1 % GEL apply q 6-8 hour to left arm as needed for pain DICLOFENAC SODIUM 16080367894 Prince Hernandez DO Active LASIX 20 MG TAB 1 tablet by mouth every morning FUROSEMIDE 54517606604 Prince Mccain Active POTASSIUM CHLORIDE 20 MEQ ORAL PACK 1 tab po BID POTASSIUM CHLORIDE 62228947387 Prince Mccain Active ALBUTEROL SULFATE 0.083 % NEBU SOLN 1 vial neb q 4hrs for severe asthma. 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 FLUTICASONE PROPIONATE HFA 72728854509 Active Harinder Hernandez DO Active EPIPEN 2-BRUNA 0.3 MG/0.3ML INJ SOAJ 1 INJ NEEDED EPINEPHRINE 07730997183 Active Harinder Hernandez DO Active PREDNISONE 20 MG TAB 1 tab twice daily for 3 day, then one daily for three days PREDNISONE 16415033644 No Longer Active Harinder Hernandez DO Active PREDNISONE 20 MG TAB 1 tablet twice daily for 2 days, then 1 tablet once daily for 2 days PREDNISONE 16985674973 No Longer Active Harinder Hernandez DO Active ASMANEX 120 METERED DOSES 220 MCG/INH INH AEPB 2 puffs orally twice daily MOMETASONE FUROATE 76186291034 Active Jeri Sosa LPN Active TOPIRAMATE 25 MG TABS 1 tab po BID TOPIRAMATE 25927665049 No Longer Active Nettie Newberry APRN Active AMLODIPINE BESYLATE 5 MG ORAL TABS Take 1 tab po daily AMLODIPINE BESYLATE 62383977289 No Longer Active Nettie Newberry APRN Active MECLIZINE HCL 25 MG TAB 1 tablet three times daily for 3 days, then 1/2 tab three times daily for 3 days. MECLIZINE HCL 21055870304 No Longer Active Nettie Newberry APRN Active AMITRIPTYLINE HCL 25 MG ORAL TABS 1 q hs prn AMITRIPTYLINE HCL 15813818039 No Longer Active Nettie Newberry APRN Active DILAUDID 2 MG ORAL TABS Take 1/2 tab po every 4 hours as needed for pain 2014 HYDROMORPHONE HCL 52704683055 No Longer Active Nettie Newberry APRN Active CLOPIDOGREL BISULFATE 75 MG ORAL TABS 1 tab by mouth once daily CLOPIDOGREL BISULFATE 81493564128 Active Harinder Hernandez DO Active ATORVASTATIN CALCIUM 10 MG ORAL TABS 1 at bedtime ATORVASTATIN CALCIUM 42555375520 Active Tawnya Pardo MA Active LOVASTATIN 40 MG ORAL TABS Take 1 tab po every hs LOVASTATIN 15832963798 No Longer Active Harinder Hernandez DO Active PREDNISONE 20 MG TAB 2 tabs daily for 4 days, 1 tab daily for 4 days, 1/2 tab daily for 4 days PREDNISONE 77430139118 No Longer Active Harinder Hernandez DO Active LEVAQUIN 500 MG ORAL TABS Take 1 tab po daily x 8 days LEVOFLOXACIN 20949167170 No Longer Active Harinder Hernandez DO Active VENTOLIN HFA 108 (90 BASE) MCG/ACT AERS 2 -4 puffs four times a day PRN 2013 ALBUTEROL SULFATE 39835046385 No Longer Active Jeri Sosa LPN Active ACEBUTOLOL HCL 200 MG CAPS 1 cap in the morning and 2 caps in the evening ACEBUTOLOL HCL 26199657460 No Longer Active Harinder Hernandez DO Active CEFDINIR 300 MG ORAL CAPS take 1 cap po bid x 10 days CEFDINIR 61030955973 No Longer Active Harinder Hernandez DO Active LOVASTATIN 40 MG TABS 1 pill by mouth nightly for cholesterol LOVASTATIN 39900399888 No Longer Active Nettie Newberry APRN Active NITROSTAT 0.4 MG SUBL 1 tab under tongueas needed for chest pain ( may take 3 total, 5 min apart, then call 911) NITROGLYCERIN 08096668541 No Longer Active Nettie Newberry MAHENDRA Active POTASSIUM CHLORIDE CR 10 MEQ CPCR 1 capsule by mouth daily 02/14 POTASSIUM CHLORIDE 25049773601 No Longer Active Nettie Newberry MAHENDRA Active TESSALON PERLES 100 MG CAP 1 to 2 tablets by mouth 3 times daily as needed for cough BENZONATATE 50775444395 No Longer Active Nettie Newberry MAHENDRA Active THEOPHYLLINE ER 200 MG ORAL [id number] Take 1 tab every 12 hours THEOPHYLLINE 57957612883 Active Harinder Hernandez DO Active PREDNISONE 20 MG TAB 2 po qd x 5 days PREDNISONE 14660030482 No Longer Active Jae Morgan MD Active AZITHROMYCIN 250 MG TABS 2 po qd x 1 day, then 1 po qd x 4 days AZITHROMYCIN 44564523064 No Longer Active Jae Morgan MD Active PREDNISONE 20 MG TAB 1 tab twice daily for 3 day, then one daily for three days PREDNISONE 13723518374 No Longer Active Jae Morgan MD Active SINGULAIR 10 MG TABS 1 pill by mouth every evening for breathing. MONTELUKAST SODIUM 00010135937 Active Tawnya Pardo MA Active TYLENOL 325 MG TAB 3 by mouth q4h as needed ACETAMINOPHEN 06449733029 Active Harinder Hernandez DO Active POTASSIUM CHLORIDE ER 10 MEQ CR-TABS take 1 tab po daily POTASSIUM CHLORIDE 94197837378 No Longer Active Harinder Hernandez DO Active PREDNISONE 20 MG TAB 1 TID x 2 days, then 1 BID x 3 days, then 1 Daily x 3 days, then stop PREDNISONE 43063553705 No Longer Active Jillkvng Frashai MCCRAY Active LEVAQUIN 500 MG TAB 1 tablet by mouth daily LEVOFLOXACIN 75584947533 No Longer Active Jillina Frazell SHIP ERECTOR Active NEURONTIN 300 MG CAP 1 cap by mouth three times daily for restless leg 06/22 GABAPENTIN 70576753669 No Longer Active Harinder Hernandez DO Active BENZONATATE 100 MG CAPS 1 cap po TID PRN BENZONATATE 41910443066 No Longer Active Harinder Hernandez DO Active MONTELUKAST SODIUM 10 MG TABS 1 tab po in the evening MONTELUKAST SODIUM 41858520690 No Longer Active Harinder Hernandez DO Active MUPIROCIN 2 % OINT apply to affected area BID x 14 days MUPIROCIN 31074132094 No Longer Active Harinder Hernandez DO Active TYLENOL EXTRA STRENGTH 500 MG TABS as needed ACETAMINOPHEN 16914854971 No Longer Active Harinder Hernandez DO Active PREDNISONE 10 MG TABS 1 tab po daily PREDNISONE 87761130138 No Longer Active Harinder Hernandez DO Active PREDNISONE 20 MG TAB 2 tabs daily for 4 days, 1 tab daily for 4 days, 1/2 tab daily for 4 days PREDNISONE 12373783791 No Longer Active Harinder Hernandez DO Active AZITHROMYCIN 250 MG TABS 2 po qd x 1 day, then 1 po qd x 4 days AZITHROMYCIN 00045126503 No Longer Active Harinder Hernandez DO Active PREDNISONE 20 MG TAB 3 tabs today, then 1 tab twice daily for 3 day, then one daily for three days PREDNISONE 27398205722 No Longer Active Harinder Hernandez DO Active NIFEDIAC CC 30 MG [id number] 1 tablet daily for raynaud's syndrome NIFEDIPINE 03245417539 No Longer Active Tawnya Pardo MA Active AMBIEN 10 MG TAB 1/2 tab by mouth at bedtime as needed for sleep ZOLPIDEM TARTRATE 69010200705 Active Harinder Hernandez DO Active CLONAZEPAM 1 MG TABS 1 tablet at bedtime for insomnia and restless legs 09/14 CLONAZEPAM 94354496990 Active Harinder Hernandez DO Active CLONAZEPAM 0.5 MG TABS 1 tab po daily CLONAZEPAM 64139302063 No Longer Active Harinder Hernandez DO Active PREDNISONE 10 MG TAB 1 tablet daily for COPD PREDNISONE 08380852699 Active Harinder Hernandez DO Active PROAIR HFA 108 (90 BASE) MCG/ACT AERS 2 puffs four times a day as needed 2012 ALBUTEROL SULFATE 02291023875 Active Harinder Hernandez DO Active FLOVENT HFA 110 MCG/ACT AERO 2 puffs inhaled b.i.d. FLUTICASONE PROPIONATE HFA 11726145136 Active Kortney Mccain Active ACIPHEX 20 MG TBEC 1 tab po daily RABEPRAZOLE SODIUM 76530496441 Active Kaylah Newberry Active CLONAZEPAM 0.5 MG TABS 1 tab po daily CLONAZEPAM 0.5 MG TABS 033996 CLONAZEPAM Inactive PREDNISONE 20 MG TAB 3 tabs today, then 1 tab twice daily for 3 day, then one daily for three days PREDNISONE 20 MG TAB 878949 PREDNISONE Inactive PREDNISONE 20 MG TAB 2 tabs daily for 4 days, 1 tab daily for 4 days, 1/2 tab daily for 4 days PREDNISONE 20 MG TAB 963502 PREDNISONE Inactive PREDNISONE 10 MG TABS 1 tab po daily PREDNISONE 10 MG TABS 426992 PREDNISONE Inactive TYLENOL EXTRA STRENGTH 500 MG TABS as needed TYLENOL EXTRA STRENGTH 500 MG TABS 609929 ACETAMINOPHEN Inactive MUPIROCIN 2 % OINT apply to affected area BID x 14 days MUPIROCIN 2 % OINT 592673 MUPIROCIN Inactive MONTELUKAST SODIUM 10 MG TABS 1 tab po in the evening MONTELUKAST SODIUM 10 MG TABS 20010818 MONTELUKAST SODIUM Inactive BENZONATATE 100 MG CAPS 1 cap po TID PRN BENZONATATE 100 MG CAPS 760800 BENZONATATE Inactive NEURONTIN 300 MG CAP 1 cap by mouth three times daily for restless leg 2013/ 12/09 NEURONTIN 300 MG CAP 367822 GABAPENTIN Inactive LEVAQUIN 500 MG TAB 1 tablet by mouth daily LEVAQUIN 500 MG TAB 19980216 LEVOFLOXACIN Inactive PREDNISONE 20 MG TAB 1 TID x 2 days, then 1 BID x 3 days, then 1 Daily x 3 days, then stop PREDNISONE 20 MG TAB 457047 PREDNISONE Inactive POTASSIUM CHLORIDE ER 10 MEQ CR-TABS take 1 tab po daily POTASSIUM CHLORIDE ER 10 MEQ CR-TABS POTASSIUM CHLORIDE Inactive PREDNISONE 20 MG TAB 1 tab twice daily for 3 day, then one daily for three days PREDNISONE 20 MG TAB 441629 PREDNISONE Inactive TESSALON PERLES 100 MG CAP 1 to 2 tablets by mouth 3 times daily as needed for cough TESSALON PERLES 100 MG CAP 192113 BENZONATATE Inactive POTASSIUM CHLORIDE CR 10 MEQ CPCR 1 capsule by mouth daily 02/14 POTASSIUM CHLORIDE CR 10 MEQ CPCR POTASSIUM CHLORIDE Inactive NITROSTAT 0.4 MG SUBL 1 tab under tongueas needed for chest pain ( may take 3 total, 5 min apart, then call 911) NITROSTAT 0.4 MG SUBL 608976 NITROGLYCERIN Inactive LOVASTATIN 40 MG TABS 1 pill by mouth nightly for cholesterol LOVASTATIN 40 MG TABS 799569 LOVASTATIN Inactive CEFDINIR 300 MG ORAL CAPS take 1 cap po bid x 10 days CEFDINIR 300 MG ORAL CAPS 322558 CEFDINIR Inactive ACEBUTOLOL HCL 200 MG CAPS 1 cap in the morning and 2 caps in the evening ACEBUTOLOL HCL 200 MG CAPS 054216 ACEBUTOLOL HCL Inactive VENTOLIN HFA 108 (90 [...] for 4 days PREDNISONE 20 MG TAB 350519 PREDNISONE Inactive LOVASTATIN 40 MG ORAL TABS Take 1 tab po every hs LOVASTATIN 40 MG ORAL TABS 638925 LOVASTATIN Inactive DILAUDID 2 MG ORAL TABS Take 1/2 tab po every 4 hours as needed for pain 2014 DILAUDID 2 MG ORAL TABS 882497 HYDROMORPHONE HCL Inactive AMITRIPTYLINE HCL 25 MG ORAL TABS 1 q hs prn AMITRIPTYLINE HCL 25 MG ORAL TABS 032991 AMITRIPTYLINE HCL Inactive MECLIZINE HCL 25 MG TAB 1 tablet three times daily for 3 days, then 1/2 tab three times daily for 3 days. MECLIZINE HCL 25 MG TAB 804563 MECLIZINE HCL Inactive AMLODIPINE BESYLATE 5 MG ORAL TABS Take 1 tab po daily AMLODIPINE BESYLATE 5 MG ORAL TABS 905365 AMLODIPINE BESYLATE Inactive TOPIRAMATE 25 MG TABS 1 tab po BID TOPIRAMATE 25 MG TABS 081620 TOPIRAMATE Inactive PREDNISONE 20 MG TAB 1 tablet twice daily for 2 days, then 1 tablet once daily for 2 days PREDNISONE 20 MG TAB 946694 PREDNISONE Inactive PREDNISONE 20 MG TAB 1 tab twice daily for 3 day, then one daily for three days PREDNISONE 20 MG TAB 661003 PREDNISONE Inactive NIFEDIPINE ER 30 MG ORAL [id number] 1 daily NIFEDIPINE ER 30 MG ORAL [id number] NIFEDIPINE Inactive AMLODIPINE BESYLATE 5 MG TABS 1 tablet by mouth daily AMLODIPINE BESYLATE 5 MG TABS 976924 AMLODIPINE BESYLATE Inactive AZITHROMYCIN 250 MG TABS 2 po qd x 1 day, then 1 po qd x 4 days AZITHROMYCIN 250 MG TABS 1322329 AZITHROMYCIN Inactive AZITHROMYCIN 250 MG TABS 2 po qd x 1 day, then 1 po qd x 4 days AZITHROMYCIN 250 MG TABS 7086023 AZITHROMYCIN Inactive PREDNISONE 20 MG TAB 2 po qd x 5 days PREDNISONE 20 MG TAB 577377 PREDNISONE Inactive Vital Signs Date Name Value [...] Panel - Chemistry sodium, serum 137 mmol/L 766-450 6219/01/03 potassium, serum 3.4 mmol/L 3.5-5.2 chloride, serum 102 mmol/L 98-107 carbon dioxide, venous blood 29.2 mmol/L 21.0-32.0 blood glucose 87 mg/dL 65-110 calcium, serum 8.5 mg/dL 8.5-10.1 urea nitrogen, blood 8 mg/dL 7-18 creatinine, serum 0.82 mg/dL 0.55-1.30 sodium, serum 140 mmol/L 961-935 3893/07/13 potassium, serum 3.2 mmol/L 3.5-5.2 chloride, serum [...] ... - Chemistry sodium, serum 141 mmol/L 915-248 4732/08/07 carbon dioxide, venous blood 34.0 mmol/L 21.0-32.0 [...] 0-19 Encounters Code Encounter Date Provider Facility CPT-55362 Level 4 Est. Patient 14:45:25 CDT Harinder [facility] CPT-40406 Level 4 Est. Patient 09:15:13 CDT Harinder [facility] CPT-80761 Level 3 Est. Patient 11:51:58 CDT Harinder [facility] CPT-44766 Level 3 Est. Patient 11:30:05 CDT Harinder Hernandez [facility] CPT-74489 Level 4 Est. Patient 10:19:23 CDT Harinder Hernandez [facility] CPT-07136 Level 3 Est. Patient 09:58:58 CDT Harinder Cr [facility] CPT-54671 Level 3 Est. Patient 12:37:21 CDT Harinder Hernandez [facility] CPT-53765 Level 3 Est. Patient 18:37:17 CDT Harinder [facility] CPT-11210 Level 4 Est. Patient 11:15:54 CDT Nettie King MAHENDRA [facility] CPT-48858 Level 3 Est. Patient 16:42:24 CDT Harinder [facility] CPT-64478 Level 3 Est. Patient 15:03:36 CDT Harinder Hernandez [facility] CPT-87401 Level 3 Est. Patient 15:03:20 CDT Harinder [facility] CPT-92028 Level 3 Est. Patient 12:14:34 CDT Harinder Hernandez [facility] CPT-25851 Level 3 Est. Patient 13:47:15 CDT Harinder Cr [facility] CPT-24239 Level 3 Est. Patient 14:08:24 CDT Harinder Hernandez [facility] CPT-39664 Level 3 Est. Patient 10:07:15 CDT Harinder Cr [facility] CPT-07541 Level 3 Est. Patient 10:06:59 CDT Harinder Hernandez [facility] CPT-25355 Level 3 Est. Patient 15:53:29 CDT Jae Morgan [facility] CPT-22734 Level 3 Est. Patient 17:19:04 CDT Harinder W David [facility] CPT-23502 Level 3 Est. Patient 11:13:01 CDT Harinder Hernandez [facility] CPT-19663 Level 3 Est. Patient 09:03:58 CDT Harinder Hernandez [facility] CPT-22218 Level 3 Est. Patient 14:46:45 STUDENT FINANCIAL SERVICES COUNSELOR Harinder Hernandez [facility] CPT-45909 Level 3 Est. Patient 09:35:49 STUDENT FINANCIAL SERVICES COUNSELOR Harinder Hernandez [facility] CPT-45591 Level 3 Est. Patient 09:29:37 STUDENT FINANCIAL SERVICES COUNSELOR Harinder Hernandez [facility] CPT-42180 Level 3 Est. Patient 15:51:07 CDT Harinder Hernandez [facility] CPT-44023 Level 3 Est. Patient 18:13:13 CDT Harinder Hernandez [facility] CPT-80060 Level 3 Est. Patient 10:44:19 CDT Harinder Hernandez [facility] CPT-07851 Level 4 Est. Patient 10:07:19 STUDENT FINANCIAL SERVICES COUNSELOR Harinder Hernandez [facility] CPT-06380 Level 3 Est. Patient 15:59:32 STUDENT FINANCIAL SERVICES COUNSELOR Harinder Hernandez [facility] Procedures Code Procedure Name Date Entry Date Standard Description CPT-00406 Abd compl w upright - XRAY USE ONLY 14:48:09 CDT 02/18 CPT-43764 Port a cath flush 13:46:05 CDT CPT-47208 Hip, complete, 2-3 views - XRAY USE ONLY 10:28:40 CDT CPT-61815 BMP - LAB USE ONLY 16:45:09 STUDENT FINANCIAL SERVICES COUNSELOR CPT-22583 Port a cath flush 12:00:13 STUDENT FINANCIAL SERVICES COUNSELOR CPT-TCMM Transitional Care Mgmt-Moderate 11:20:16 STUDENT FINANCIAL SERVICES COUNSELOR CPT-98845 First Vx - Ix admin for Medicare patients 17:35:15 CDT CPT-30452 Fluzone Preservative Free Intramuscular Suspension 17:35 :15 CDT CPT-02947 Microalbumin - LAB USE ONLY 11:52:05 CDT CPT-TCMM Transitional Care Mgmt-Moderate 11:33:57 CDT CPT-63384 No Charge Offi Visit 14:11:29 CDT CPT-36792 Magnesium - LAB USE ONLY 10:45:44 CDT CPT-12906 Lipid - LAB USE ONLY 10:45:44 CDT CPT-71598 CBC - LAB USE ONLY 10:45:44 CDT CPT-51102 Venipuncture Draw Fee 10:45:43 CDT CPT-57877 Venipuncture Draw Fee 18:21:27 CDT CPT-JTINJ Asp/Joint Injection 18:38:04 CDT CPT-51089 Immunization Each Additional Inj 17:38:04 CDT CPT-07467 Immunization Single Admin 17:38:04 CDT CPT-93628 Prevnar 13 17:38:04 CDT CPT-66197 Fluzone Quadrivalent preservative free (>=3yrs.) 17:38: 04 CDT CPT-37574 No Charge Offi Visit 11:14:03 CDT CPT-81810 Chest 2V Frontal and Lat 14:00:18 CDT CPT-OV Office Visit 16:10:28 CDT CPT-JTINJ Asp/Joint Injection 09:03:57 CDT CPT-Cryo Cryotherapy 09:35:49 STUDENT FINANCIAL SERVICES COUNSELOR CPT-JTINJ Asp/Joint Injection 09:34:45 STUDENT FINANCIAL SERVICES COUNSELOR CPT-J2930 Solu Medrol 125 mg (Methyl Prednisolone Sodium Succinate) 20:37:27 CDT CPT-06327 Abx/Therapy Injection 20:37:27 CDT CPT-08244 Port a cath flush 08:15:51 CDT CPT-06021 Port a cath flush 09:54:16 CDT CPT-34484 Port a cath flush 09:38:02 CDT CPT-01962 Port a cath flush 11:00:27 STUDENT FINANCIAL SERVICES COUNSELOR
--- OUTSIDE RECORDS SUMMARY | 2017-12-29 01:14 | XMS REPORT | Clinical Summary ---
Author Author Admin, QIE Organization [facility] Address Unknown Phone Unavailable Allergies, [...] positional vertigo Colon cancer screening V76.51 Active [facility] [employer] Screening for malignant neoplasms of colon Screening for malignant neoplasm, colon V76.51 Active [facility] [employer] Screening for malignant neoplasms of colon Pneumonia 486 Active Harinder Hernandez DO Pneumonia, organism unspecified Bacteremia 790.7 Active Harinder Hernandez DO Unspecified bacteremia Clostridium difficile colitis 008.45 Active Harinder Hernandez DO Intestinal infection due to clostridium difficile Abdominal pain, right lower quadrant 789.03 Active Harinder Hernandez DO Abdominal pain, right lower quadrant Needs vaccination for influenza V04.81 Active 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 Melonie [employer] Need for prophylactic vaccination and inoculation against influenza Need for prophylactic vaccination against streptococcus pneumoniae ( Pneumococcus) V03.82 Active Roxanne Quiñonesum [employer] Need for prophylactic vaccination against Streptococcus pneumoniae [pneumococcus ] Nausea and vomiting ICD-787.01 Inactive Jae Morgan MD Diarrhea ICD-787.91 Inactive Jae Morgan MD Medication List Medication Instructions Start Date Stop Date Generic Name NDC Status Provider Patient Instruction VENTOLIN HFA 108 (90 BASE) MCG/ACT AERS 2 -4 puffs four times a day PRN 2013 ALBUTEROL SULFATE [id number] No Longer Active Jeri Sosa RPT,RMA Active DILAUDID 2 MG ORAL TABS Take 1/2 tab po every 4 hours as needed for pain 2014 HYDROMORPHONE HCL 46696423886 Active Tawnya Pardo MA Active ACEBUTOLOL HCL 200 MG CAPS 1 cap in the morning and 2 caps in the evening ACEBUTOLOL HCL 32503070385 No Longer Active Harinder Hernandez DO Active CEFDINIR 300 MG ORAL CAPS take 1 cap po bid x 10 days CEFDINIR 47500966920 No Longer Active Harinder Hernandez DO Active AMITRIPTYLINE HCL 25 MG ORAL TABS 1 q hs prn AMITRIPTYLINE HCL 46128257140 Active Tawnya Pardo MA Active LOVASTATIN 40 MG TABS 1 pill by mouth nightly for cholesterol LOVASTATIN 34007792862 No Longer Active Nettie Newberry APRN Active NITROSTAT 0.4 MG SUBL 1 tab under tongueas needed for chest pain ( may take 3 total, 5 min apart, then call 911) NITROGLYCERIN 65755944247 No Longer Active Nettie Newberry MAHENDRA Active POTASSIUM CHLORIDE CR 10 MEQ CPCR 1 capsule by mouth daily 02/14 POTASSIUM CHLORIDE 08543565874 No Longer Active Nettie Newberry MAHENDRA Active TESSALON PERLES 100 MG CAP 1 to 2 tablets by mouth 3 times daily as needed for cough BENZONATATE 77185687802 No Longer Active Nettie King MAHENDRA Active THEOPHYLLINE ER 200 MG ORAL [id number] Take 1 tab every 12 hours THEOPHYLLINE 79006393866 Active Tawnya Pardo MA Active PREDNISONE 20 MG TAB 2 po qd x 5 days PREDNISONE 56594040005 No Longer Active Jae Morgan MD Active AZITHROMYCIN 250 MG TABS 2 po qd x 1 day, then 1 po qd x 4 days AZITHROMYCIN 43433142337 No Longer Active Jae Morgan MD Active PREDNISONE 20 MG TAB 1 tab twice daily for 3 day, then one daily for three days PREDNISONE 52675312550 No Longer Active Jae Morgan MD Active MECLIZINE HCL 25 MG TAB 1 tablet three times daily for 3 days, then 1/2 tab three times daily for 3 days. MECLIZINE HCL 04119793618 Active Tawnya Pardo MA Active SINGULAIR 10 MG TABS 1 pill by mouth every evening for breathing. MONTELUKAST SODIUM 98927335064 Active Tawnya Pardo MA Active TYLENOL 325 MG TAB 3 by mouth q4h as needed ACETAMINOPHEN 41846490149 Active Harinder Hernandez DO Active POTASSIUM CHLORIDE ER 10 MEQ CR-TABS take 1 tab po daily POTASSIUM CHLORIDE 43345367859 No Longer Active Harinder Hernandez DO Active PREDNISONE 20 MG TAB 1 TID x 2 days, then 1 BID x 3 days, then 1 Daily x 3 days, then stop PREDNISONE 61935827997 No Longer Active John Montemayor APRN Active LEVAQUIN 500 MG TAB 1 tablet by mouth daily LEVOFLOXACIN 50134888036 No Longer Active Jillina Frazell [employer] Active NEURONTIN 300 MG CAP 1 cap by mouth three times daily for restless leg 06/22 GABAPENTIN 28877684680 No Longer Active Harinder Hernandez DO Active BENZONATATE 100 MG CAPS 1 cap po TID PRN BENZONATATE 10124947909 No Longer Active Harinder Hernandez DO Active MONTELUKAST SODIUM 10 MG TABS 1 tab po in the evening MONTELUKAST SODIUM 50455572904 No Longer Active Harinder Hernandez DO Active MUPIROCIN 2 % OINT apply to affected area BID x 14 days MUPIROCIN 97508343834 No Longer Active Harinder Hernandez DO Active TYLENOL EXTRA STRENGTH 500 MG TABS as needed ACETAMINOPHEN 37373119849 No Longer Active Harinder Hernandez DO Active PREDNISONE 10 MG TABS 1 tab po daily PREDNISONE 85576497657 No Longer Active Harinder Hernandez DO Active PREDNISONE 20 MG TAB 2 tabs daily for 4 days, 1 tab daily for 4 days, 1/2 tab daily for 4 days PREDNISONE 06923880068 No Longer Active Harinder Hernandez DO Active AZITHROMYCIN 250 MG TABS 2 po qd x 1 day, then 1 po qd x 4 days AZITHROMYCIN 85206929041 No Longer Active Harinder Hernandez DO Active PREDNISONE 20 MG TAB 3 tabs today, then 1 tab twice daily for 3 day, then one daily for three days PREDNISONE 76087250662 No Longer Active Harinedr Hernandez DO Active NIFEDIAC CC 30 MG [id number] 1 tablet daily for raynaud's syndrome NIFEDIPINE 04543201760 Active Tawnya Pardo MA Active AMBIEN 10 MG TAB 1/2 tab by mouth at bedtime as needed for sleep ZOLPIDEM TARTRATE 53664497660 Active Tawnya Pardo MA Active CLONAZEPAM 1 MG TABS 1 tablet at bedtime for insomnia and restless legs 09/14 CLONAZEPAM 92468057295 Active Tawnya Pardo MA Active CLONAZEPAM 0.5 MG TABS 1 tab po daily CLONAZEPAM 22595854574 No Longer Active Harinder Hernandez DO Active PREDNISONE 10 MG TAB 1 tablet daily for COPD PREDNISONE 31843505576 Active Tawnya aPrdo MA Active PROAIR HFA 108 (90 BASE) MCG/ACT AERS 2 puffs four times a day as needed 2012 ALBUTEROL SULFATE 58391430623 Active Tawnya Pardo MA Active FLOVENT HFA 110 MCG/ACT AERO 2 puffs inhaled b.i.d. FLUTICASONE PROPIONATE HFA 57419336505 Active Tawnya Pardo MA Active EPIPEN 0.3 MG/0.3ML URIEL DIRECTED EPINEPHRINE Active Demetrius JOHNSON Active ACIPHEX 20 MG TBEC 1 tab po daily RABEPRAZOLE SODIUM 10208920243 Active Tawnya Pardo MA Active TOPIRAMATE 25 MG TABS 1 tab po BID TOPIRAMATE 35748736454 Active Tawnya Pardo MA Active CLONAZEPAM 0.5 MG TABS 1 tab po daily CLONAZEPAM 0.5 MG TABS 914421 CLONAZEPAM Inactive PREDNISONE 20 MG TAB 3 tabs today, then 1 tab twice daily for 3 day, then one daily for three days PREDNISONE 20 MG TAB 587160 PREDNISONE Inactive PREDNISONE 20 MG TAB 2 tabs daily for 4 days, 1 tab daily for 4 days, 1/2 tab daily for 4 days PREDNISONE 20 MG TAB 257497 PREDNISONE Inactive PREDNISONE 10 MG TABS 1 tab po daily PREDNISONE 10 MG TABS 417718 PREDNISONE Inactive TYLENOL EXTRA STRENGTH 500 MG TABS as needed TYLENOL EXTRA STRENGTH 500 MG TABS 230476 ACETAMINOPHEN Inactive MUPIROCIN 2 % OINT apply to affected area BID x 14 days MUPIROCIN 2 % OINT 432665 MUPIROCIN Inactive MONTELUKAST SODIUM 10 MG TABS 1 tab po in the evening MONTELUKAST SODIUM 10 MG TABS 20010818 MONTELUKAST SODIUM Inactive BENZONATATE 100 MG CAPS 1 cap po TID PRN BENZONATATE 100 MG CAPS 171123 BENZONATATE Inactive NEURONTIN 300 MG CAP 1 cap by mouth three times daily for restless leg 06/22 NEURONTIN 300 MG CAP 839611 GABAPENTIN Inactive LEVAQUIN 500 MG TAB 1 tablet by mouth daily LEVAQUIN 500 MG TAB 281263 LEVOFLOXACIN Inactive PREDNISONE 20 MG TAB 1 TID x 2 days, then 1 BID x 3 days, then 1 Daily x 3 days, then stop PREDNISONE 20 MG TAB 641899 PREDNISONE Inactive POTASSIUM CHLORIDE ER 10 MEQ CR-TABS take 1 tab po daily POTASSIUM CHLORIDE ER 10 MEQ CR-TABS POTASSIUM CHLORIDE Inactive PREDNISONE 20 MG TAB 1 tab twice daily for 3 day, then one daily for three days PREDNISONE 20 MG TAB 711912 PREDNISONE Inactive TESSALON PERLES 100 MG CAP 1 to 2 tablets by mouth 3 times daily as needed for cough TESSALON PERLES 100 MG CAP 867085 BENZONATATE Inactive POTASSIUM CHLORIDE CR 10 MEQ [...] nightly for cholesterol LOVASTATIN 40 MG TABS 585180 LOVASTATIN Inactive CEFDINIR 300 MG ORAL CAPS take 1 cap po bid x 10 days CEFDINIR 300 MG ORAL CAPS 20021018 CEFDINIR Inactive ACEBUTOLOL HCL 200 MG CAPS 1 cap in the morning and 2 caps in the evening ACEBUTOLOL HCL 200 MG CAPS 052657 ACEBUTOLOL HCL Inactive VENTOLIN HFA 108 (90 BASE) MCG/ACT AERS 2 -4 puffs four times a day PRN 2013 VENTOLIN HFA 108 (90 BASE) MCG/ACT AERS ALBUTEROL SULFATE Inactive AZITHROMYCIN 250 MG TABS 2 po qd x 1 day, then 1 po qd x 4 days AZITHROMYCIN 250 MG TABS 3898703 AZITHROMYCIN Inactive AZITHROMYCIN 250 MG TABS 2 po qd x 1 day, then 1 po qd x 4 days AZITHROMYCIN 250 MG TABS 1264489 AZITHROMYCIN Inactive PREDNISONE 20 MG TAB 2 po qd x 5 days PREDNISONE 20 MG TAB 901550 PREDNISONE Inactive Vital Signs Date Name Value [...] E&M - 3141-9 130 [lb_av] Weight Measured Diagnostic Results Date Name Value Unit Range Description Lab Report: Basic Metabolic Panel - Chemistry sodium, serum 138 mmol/L 817-418 8523/09/24 potassium, serum 3.5 mmol/L 3.5-5.2 chloride, serum [...] count 326 10^3/MM^3 10*3/mm3 142-424 Lab Report: CBC W/DIFF, Comp. Metabolic Panel, UADIP W/MICRO, AUTO - Chemistry sodium, serum 141 mmol/L 796-617 7903/03/02 potassium, serum 3.4 mmol/L 3.5-5.2 chloride, serum [...] Metabolic Panel, UADIP W/MICRO, AUTO - Urinalysis urine color Yellow Colorless;Lightyellow;Straw;Yellow appearance, urine Clear Clear specific gravity, urine 1.020 1.000-1.030 pH, urine, semiquantitative 5.5 5.0-8.5 urobilinogen, urine, semiquantitative (dipstick) 0.2 Normal leukocyte esterase, urine, by dipstick Negative Negative nitrite, urine, semiquantitative Negative Negative glucose, urine, semiquantitative Negative Negative ketones, urine, by test strip Negative Negative bilirubin, urine Negative Negative Encounters Code Encounter Date Provider Facility CPT-40207 Level 3 Est. Patient 12:14:34 CDT Harinder Hernandez [facility] CPT-82526 Level 3 Est. Patient 13:47:15 CDT Harinder Hernandez [facility] CPT-01038 Level 3 Est. Patient 14:08:24 CDT Harinder Hernandez [facility] CPT-77140 Level 3 Est. Patient 10:07:15 CDT Harinder Hernandez [facility] CPT-58608 Level 3 Est. Patient 10:06:59 CDT Harinder Hernandez [facility] CPT-38308 Level 3 Est. Patient 15:53:29 CDT Jae Morgan MD [facility] CPT-08516 Level 3 Est. Patient 17:19:04 CDT Harinder Hernandez [facility] CPT-06849 Level 3 Est. Patient 11:13:01 CDT Harinder Hernandez [facility] CPT-13048 Level 3 Est. Patient 09:03:58 CDT Harinder Hernandez [facility] CPT-43368 Level 3 Est. Patient 14:46:45 [employer] Harinder Hernandez [facility] CPT-77362 Level 3 Est. Patient 09:35:49 [employer] Harinder Hernandez [facility] CPT-28013 Level 3 Est. Patient 09:29:37 [employer] Harinder Hernandez [facility] CPT-40572 Level 3 Est. Patient 15:51:07 CDT Harinder Hernandez [facility] CPT-03045 Level 3 Est. Patient 18:13:13 CDT Harinder Hernandez [facility] CPT-62787 Level 3 Est. Patient 10:44:19 CDT Harinder Hernandez [facility] CPT-72839 Level 4 Est. Patient 10:07:19 [employer] Harinder Hernandez [facility] CPT-62648 Level 3 Est. Patient 15:59:32 [employer] Harinder Cr [facility] Procedures Code Procedure Name Date Entry Date Standard Description CPT-47582 Immunization Each Additional Inj 17:38:04 CDT CPT-84846 Immunization Single Admin 17:38:04 CDT CPT-50805 Prevnar 13 17:38:04 CDT CPT-57836 Fluzone Quadrivalent preservative free (>=3yrs.) 17:38: 04 CDT CPT-90132 No Charge Offi Visit 11:14:03 CDT CPT-67213 Chest 2V Frontal and Lat 14:00:18 CDT CPT-OV Office Visit 16:10:28 CDT CPT-JTINJ Asp/Joint Injection 09:03:57 CDT CPT-Cryo Cryotherapy 09:35:49 [employer] CPT-JTINJ Asp/Joint Injection 09:34:45 [employer] CPT-J2930 Solu Medrol 125 mg (Methyl Prednisolone Sodium Succinate) 20:37:27 CDT CPT-77829 Abx/Therapy Injection 20:37:27 CDT CPT-49433 Port a cath flush 08:15:51 CDT CPT-46094 Port a cath flush 09:54:16 CDT CPT-06963 Port a cath flush 09:38:02 CDT CPT-25224 Port a cath flush 11:00:27 [employer]
--- OUTSIDE RECORDS SUMMARY | 2017-12-29 01:15 | XMS REPORT | Clinical Summary ---
Author Author Admin, QIE Organization [facility] [place] Devices Address Unknown Phone Unavailable Allergies, Adverse Reactions, [...] Dysthymic disorder Abdominal pain 789.00 Resolved Jeri Lairosibe Abdominal pain, unspecified site Right leg pain [...] Harinder Hernandez DO Insomnia ICD-780.52 Inactive Harinder Henrandez DO Raynaud's syndrome ICD-443.0 Inactive Kortney Mccain [...] TABLET 1 tablet by mouth daily SPIRONOLACTONE 37647154999 No Longer Active Jeri Nieto Active PREDNISONE 20 MG ORAL TABLET 2 tablets by mouth today, then 1 tablet by mouth days 2-3 PREDNISONE 76283906131 No Longer Active Jeri Nieto Active NITROSTAT 0.4 MG SUBLINGUAL TABLET SUBLINGUAL 1 tab SL q5min PRN chest pain NITROGLYCERIN 56753827100 Active Meenu Alejo LPN Active THEOPHYLLINE ER 300 MG ORAL TABLET EXTENDED RELEASE 12 HOUR 1 po BID THEOPHYLLINE 11749499332 Active Kortney Mccain Active POTASSIUM CHLORIDE ER 20 MEQ ORAL TABLET EXTENDED RELEASE 1 po q day POTASSIUM CHLORIDE 51355142001 Active Kortney Mccain Active POTASSIUM CHLORIDE 20 MEQ ORAL PACKET 1 tab po q day POTASSIUM CHLORIDE 78146874053 No Longer Active Kortney Mccain Active POTASSIUM CHLORIDE ER 10 MEQ ORAL CAPSULE EXTENDED RELEASE 1 capsule BID 2016 POTASSIUM CHLORIDE 67612585791 No Longer Active Kortney Mccain Active LASIX 20 MG ORAL TABLET 1 tablet by mouth every morning FUROSEMIDE 30582321124 No Longer Active Kortney Mccain Active FLUOXETINE HCL 10 MG ORAL CAPSULE 1 po qd for depression/anxiety FLUOXETINE HCL 47632654703 Active Meenu Alejo LPN Active VOLTAREN 1 % TRANSDERMAL GEL apply q 6-8 hour to left arm as needed for pain DICLOFENAC SODIUM 54446740839 Active Kortney Mccain Active ALBUTEROL SULFATE (2.5 MG/3ML) 0.083% INHALATION NEBULIZATION SOLUTION 1 vial neb q 4hrs for severe asthma. imperative to have this agent ALBUTEROL SULFATE 07218937728 Active Ciera Pimentle Active NIFEDIAC CC 30 MG ORAL TABLET EXTENDED RELEASE 24 HOUR 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 NIFEDIPINE 96130225293 Active Kortney Mccain Active AMLODIPINE BESYLATE 5 MG ORAL TABLET 1 tablet by mouth daily 2016 AMLODIPINE BESYLATE 58730185549 No Longer Active Harinder Hernandez DO Active TOPAMAX 25 MG ORAL TABLET 1 tab po BID TOPIRAMATE 19326344762 Active Kortney Mccain Active FLUTICASONE PROPIONATE 50 MCG/ACT NASAL SUSPENSION 2 sprays per nostril daily PRN Allergies FLUTICASONE PROPIONATE 83578983848 Active Meenu Alejo LPN Active NIFEDIPINE ER 30 MG ORAL TABLET EXTENDED RELEASE 24 HOUR 1 daily NIFEDIPINE 87951629987 No Longer Active Harinder Hernandez DO Active FLOVENT HFA 110 MCG/ACT INHALATION AEROSOL 2 puffs inhaled b.i.d. FLUTICASONE PROPIONATE HFA 38666872617 Active Harinder Hernandez DO Active EPIPEN 2-BRUNA 0.3 MG/0.3ML INJECTION SOLUTION AUTO-INJECTOR 1 INJ NEEDED EPINEPHRINE 85594479421 Active Meenu Alejo LPN Active PREDNISONE 20 MG ORAL TABLET 1 tab twice daily for 3 day, then one daily for three days PREDNISONE 76217504892 No Longer Active Harinder Hernandez DO Active PREDNISONE 20 MG ORAL TABLET 1 tablet twice daily for 2 days, then 1 tablet once daily for 2 days PREDNISONE 23426872049 No Longer Active Harinder Hernandez DO Active ASMANEX 120 METERED DOSES 220 MCG/INH INHALATION AEROSOL POWDER BREATH ACTIVATED 2 puffs orally twice daily MOMETASONE FUROATE 27508493878 Active Jeri Sosa LPN Active TOPIRAMATE 25 MG ORAL TABLET 1 tab po BID TOPIRAMATE 22489817825 No Longer Active Nettie Newberry APRN Active AMLODIPINE BESYLATE 5 MG ORAL TABLET Take 1 tab po daily AMLODIPINE BESYLATE 57417244001 No Longer Active Nettie Newberry APRN Active MECLIZINE HCL 25 MG ORAL TABLET 1 tablet three times daily for 3 days, then 1/ 2 tab three times daily for 3 days. MECLIZINE HCL 51343235212 No Longer Active Nettie Newberry APRN Active AMITRIPTYLINE HCL 25 MG ORAL TABLET 1 q hs prn AMITRIPTYLINE HCL 96835061384 No Longer Active Nettie Newberry APRN Active DILAUDID 2 MG ORAL TABLET Take 1/2 tab po every 4 hours as needed for pain HYDROMORPHONE HCL 83815925880 No Longer Active Nettie Newberry APRN Active CLOPIDOGREL BISULFATE 75 MG ORAL TABLET 1 tab by mouth once daily CLOPIDOGREL BISULFATE 89332097803 Active Meenu Alejo LPN Active ATORVASTATIN CALCIUM 10 MG ORAL TABLET 1 at bedtime ATORVASTATIN CALCIUM 35209386818 Active Kortney Mccain Active LOVASTATIN 40 MG ORAL TABLET Take 1 tab po every hs LOVASTATIN 42641087599 No Longer Active Harinder Hernandez DO Active PREDNISONE 20 MG ORAL TABLET 2 tabs daily for 4 days, 1 tab daily for 4 days, 1/2 tab daily for 4 days PREDNISONE 96880962739 No Longer Active Harinder Hernandez DO Active LEVAQUIN 500 MG ORAL TABLET Take 1 tab po daily x 8 days LEVOFLOXACIN 54601364373 No Longer Active Harinder Hernandez DO Active VENTOLIN HFA 108 (90 Base) MCG/ACT INHALATION AEROSOL SOLUTION 2 -4 puffs four times a day PRN ALBUTEROL SULFATE 35679945306 No Longer Active Jeri Sosa LPN Active ACEBUTOLOL HCL 200 MG ORAL CAPSULE 1 cap in the morning and 2 caps in the evening ACEBUTOLOL HCL 82526687064 No Longer Active Harinder Hernandez DO Active CEFDINIR 300 MG ORAL CAPSULE take 1 cap po bid x 10 days CEFDINIR 64027408065 No Longer Active Harinder Hernandez DO Active LOVASTATIN 40 MG ORAL TABLET 1 pill by mouth nightly for cholesterol LOVASTATIN 96816210883 No Longer Active Nettie Newberry APRN Active NITROSTAT 0.4 MG SUBLINGUAL TABLET SUBLINGUAL 1 tab under tongueas needed for chest pain ( may take 3 total, 5 min apart, then call 911) NITROGLYCERIN 38742861397 No Longer Active Nettie Newberry APRN Active POTASSIUM CHLORIDE ER 10 MEQ ORAL CAPSULE EXTENDED RELEASE 1 capsule by mouth daily POTASSIUM CHLORIDE 71086439513 No Longer Active Nettie Newberry APRN Active TESSALON PERLES 100 MG ORAL CAPSULE 1 to 2 tablets by mouth 3 times daily as needed for cough BENZONATATE 40704559101 No Longer Active Nettie Newberry APRN Active PREDNISONE 20 MG ORAL TABLET 2 po qd x 5 days PREDNISONE 82733268463 No Longer Active Jae Morgan MD Active AZITHROMYCIN 250 MG ORAL TABLET 2 po qd x 1 day, then 1 po qd x 4 days 12/30 AZITHROMYCIN 95755701066 No Longer Active Jae Morgan MD Active PREDNISONE 20 MG ORAL TABLET 1 tab twice daily for 3 day, then one daily for three days PREDNISONE 93235515259 No Longer Active Jae Morgan MD Active SINGULAIR 10 MG ORAL TABLET 1 pill by mouth every evening for breathing. 2014 MONTELUKAST SODIUM 80827691934 Active Meenu Alejo LPN Active TYLENOL 325 MG ORAL TABLET 3 by mouth q4h as needed ACETAMINOPHEN 00088481499 Active Harinder Hernandez DO Active POTASSIUM CHLORIDE ER 10 MEQ ORAL TABLET EXTENDED RELEASE take 1 tab po daily POTASSIUM CHLORIDE 09617325391 No Longer Active Harinder Hernandez DO Active PREDNISONE 20 MG ORAL TABLET 1 TID x 2 days, then 1 BID x 3 days, then 1 Daily x 3 days, then stop PREDNISONE 32777837322 No Longer Active Jillina Frazellor MCCRAY Active LEVAQUIN 500 MG ORAL TABLET 1 tablet by mouth daily LEVOFLOXACIN 49322438874 No Longer Active Jillina Frazell J2EE ARCHITECT Active NEURONTIN 300 MG ORAL CAPSULE 1 cap by mouth three times daily for restless leg GABAPENTIN 02186889395 No Longer Active Harinder Hernandez DO Active BENZONATATE 100 MG ORAL CAPSULE 1 cap po TID PRN BENZONATATE 58619307354 No Longer Active Harinder Hernandez DO Active MONTELUKAST SODIUM 10 MG ORAL TABLET 1 tab po in the evening 2014 MONTELUKAST SODIUM 18194092486 No Longer Active Harinder Hernandez DO Active MUPIROCIN 2 % EXTERNAL OINTMENT apply to affected area BID x 14 days MUPIROCIN 80107155709 No Longer Active Harinder Hernandez DO Active TYLENOL EXTRA STRENGTH 500 MG ORAL TABLET as needed ACETAMINOPHEN 06861625391 No Longer Active Harinder Hernandez DO Active PREDNISONE 10 MG ORAL TABLET 1 tab po daily PREDNISONE 90159058301 No Longer Active Harinder Hernandez DO Active PREDNISONE 20 MG ORAL TABLET 2 tabs daily for 4 days, 1 tab daily for 4 days, 1/2 tab daily for 4 days PREDNISONE 45964210926 No Longer Active Harinder Hernandez DO Active AZITHROMYCIN 250 MG ORAL TABLET 2 po qd x 1 day, then 1 po qd x 4 days 04/06 AZITHROMYCIN 64187851112 No Longer Active Harinder Hernandez DO Active PREDNISONE 20 MG ORAL TABLET 3 tabs today, then 1 tab twice daily for 3 day, then one daily for three days PREDNISONE 57783495137 No Longer Active Harinder Hernandez DO Active NIFEDIAC CC 30 MG ORAL TABLET EXTENDED RELEASE 24 HOUR 1 tablet daily for raynaud's syndrome NIFEDIPINE 41106128911 No Longer Active Tawnya Pardo MA Active AMBIEN 10 MG ORAL TABLET 1/2 tab by mouth at bedtime as needed for sleep 2013 ZOLPIDEM TARTRATE 64090212121 Active Meenu Alejo LPN Active CLONAZEPAM 1 MG ORAL TABLET 1 tablet at bedtime for insomnia and restless legs CLONAZEPAM 98749285989 Active Meenu Alejo LPN Active CLONAZEPAM 0.5 MG ORAL TABLET 1 tab po daily CLONAZEPAM 99072635763 No Longer Active Harinder Hernandez DO Active PREDNISONE 10 MG ORAL TABLET 1 tablet daily for COPD PREDNISONE 18115213320 Active Kortney Mccain Active PROAIR HFA 108 (90 Base) MCG/ACT INHALATION AEROSOL SOLUTION 2 puffs four times a day as needed ALBUTEROL SULFATE 14452186505 Active Harinder Hernandez DO Active FLOVENT HFA 110 MCG/ACT INHALATION AEROSOL 2 puffs inhaled b.i.d. FLUTICASONE PROPIONATE HFA 87148704641 Active Kortney Mccain Active ACIPHEX 20 MG ORAL TABLET DELAYED RELEASE 1 tab po daily RABEPRAZOLE SODIUM 90998691294 Active Meenu Alejo LPN Active CLONAZEPAM 0.5 MG ORAL TABLET 1 tab po daily CLONAZEPAM 0.5 MG ORAL TABLET 704399 CLONAZEPAM Inactive PREDNISONE 20 MG ORAL TABLET 3 tabs today, then 1 tab twice daily for 3 day, then one daily for three days PREDNISONE 20 MG ORAL TABLET 937028 PREDNISONE Inactive PREDNISONE 20 MG ORAL TABLET 2 tabs daily for 4 days, 1 tab daily for 4 days, 1/2 tab daily for 4 days PREDNISONE 20 MG ORAL TABLET 512224 PREDNISONE Inactive PREDNISONE 10 MG ORAL TABLET 1 tab po daily PREDNISONE 10 MG ORAL TABLET 307039 PREDNISONE Inactive TYLENOL EXTRA STRENGTH 500 MG ORAL TABLET as needed TYLENOL EXTRA STRENGTH 500 MG ORAL TABLET 472804 ACETAMINOPHEN Inactive MUPIROCIN 2 % EXTERNAL OINTMENT apply to affected area BID x 14 days MUPIROCIN 2 % EXTERNAL OINTMENT 957197 MUPIROCIN Inactive MONTELUKAST SODIUM 10 MG ORAL TABLET 1 tab po in the evening 2014 MONTELUKAST SODIUM 10 MG ORAL TABLET 185792 MONTELUKAST SODIUM Inactive BENZONATATE 100 MG ORAL CAPSULE 1 cap po TID PRN BENZONATATE 100 MG ORAL CAPSULE 498808 BENZONATATE Inactive NEURONTIN 300 MG ORAL CAPSULE 1 cap by mouth three times daily for restless leg NEURONTIN 300 MG ORAL CAPSULE 711884 GABAPENTIN Inactive LEVAQUIN 500 MG ORAL TABLET 1 tablet by mouth daily LEVAQUIN 500 MG ORAL TABLET 444462 LEVOFLOXACIN Inactive PREDNISONE 20 MG ORAL TABLET 1 TID x 2 days, then 1 BID x 3 days, then 1 Daily x 3 days, then stop PREDNISONE 20 MG ORAL TABLET 633906 PREDNISONE Inactive POTASSIUM CHLORIDE ER 10 MEQ ORAL TABLET EXTENDED RELEASE take 1 tab po daily POTASSIUM CHLORIDE ER 10 MEQ ORAL TABLET EXTENDED RELEASE POTASSIUM CHLORIDE Inactive PREDNISONE 20 MG ORAL TABLET 1 tab twice daily for 3 day, then one daily for three days PREDNISONE 20 MG ORAL TABLET 862352 PREDNISONE Inactive TESSALON PERLES 100 MG ORAL CAPSULE 1 to 2 tablets by mouth 3 times daily as needed for cough TESSALON PERLES 100 MG ORAL CAPSULE 390279 BENZONATATE Inactive POTASSIUM CHLORIDE ER 10 MEQ ORAL CAPSULE EXTENDED RELEASE 1 capsule by mouth daily POTASSIUM CHLORIDE ER 10 MEQ ORAL CAPSULE EXTENDED RELEASE POTASSIUM CHLORIDE Inactive NITROSTAT 0.4 MG SUBLINGUAL TABLET SUBLINGUAL 1 tab under tongueas needed for chest pain ( may take 3 total, 5 min apart, then call 911) NITROSTAT 0.4 MG SUBLINGUAL TABLET SUBLINGUAL 085115 NITROGLYCERIN Inactive LOVASTATIN 40 MG ORAL TABLET 1 pill by mouth nightly for cholesterol LOVASTATIN 40 MG ORAL TABLET 908499 LOVASTATIN Inactive CEFDINIR 300 MG ORAL CAPSULE take 1 cap po bid x 10 days CEFDINIR 300 MG ORAL CAPSULE 389336 CEFDINIR Inactive ACEBUTOLOL HCL 200 MG ORAL CAPSULE 1 cap in the morning and 2 caps in the evening ACEBUTOLOL HCL 200 MG ORAL CAPSULE 761216 ACEBUTOLOL HCL Inactive VENTOLIN HFA 108 (90 Base) MCG/ACT INHALATION AEROSOL SOLUTION 2 -4 puffs four times a day PRN VENTOLIN HFA 108 (90 Base) MCG/ ACT INHALATION AEROSOL SOLUTION ALBUTEROL SULFATE Inactive LEVAQUIN 500 MG ORAL TABLET Take 1 tab po daily x 8 days LEVAQUIN 500 MG ORAL TABLET 118860 LEVOFLOXACIN Inactive PREDNISONE 20 MG ORAL TABLET 2 tabs daily for 4 days, 1 tab daily for 4 days, 1/2 tab daily for 4 days PREDNISONE 20 MG ORAL TABLET 234977 PREDNISONE Inactive LOVASTATIN 40 MG ORAL TABLET Take 1 tab po every hs LOVASTATIN 40 MG ORAL TABLET 030852 LOVASTATIN Inactive DILAUDID 2 MG ORAL TABLET Take 1/2 tab po every 4 hours as needed for pain DILAUDID 2 MG ORAL TABLET 140926 HYDROMORPHONE HCL Inactive AMITRIPTYLINE HCL 25 MG ORAL TABLET 1 q hs prn AMITRIPTYLINE HCL 25 MG ORAL TABLET 519216 AMITRIPTYLINE HCL Inactive MECLIZINE HCL 25 MG ORAL TABLET 1 tablet three times daily for 3 days, then 1/ 2 tab three times daily for 3 days. MECLIZINE HCL 25 MG ORAL TABLET 613230 MECLIZINE HCL Inactive AMLODIPINE BESYLATE 5 MG ORAL TABLET Take 1 tab po daily AMLODIPINE BESYLATE 5 MG ORAL TABLET 966235 AMLODIPINE BESYLATE Inactive TOPIRAMATE 25 MG ORAL TABLET 1 tab po BID TOPIRAMATE 25 MG ORAL TABLET 825781 TOPIRAMATE Inactive PREDNISONE 20 MG ORAL TABLET 1 tablet twice daily for 2 days, then 1 tablet once daily for 2 days PREDNISONE 20 MG ORAL TABLET 106264 PREDNISONE Inactive PREDNISONE 20 MG ORAL TABLET 1 tab twice daily for 3 day, then one daily for three days PREDNISONE 20 MG ORAL TABLET 109829 PREDNISONE Inactive NIFEDIPINE ER 30 MG ORAL TABLET EXTENDED RELEASE 24 HOUR 1 daily NIFEDIPINE ER 30 MG ORAL TABLET EXTENDED RELEASE 24 HOUR NIFEDIPINE Inactive AMLODIPINE BESYLATE 5 MG ORAL TABLET 1 tablet by mouth daily 2016 AMLODIPINE BESYLATE 5 MG ORAL TABLET 001124 AMLODIPINE BESYLATE Inactive LASIX 20 MG ORAL TABLET 1 tablet by mouth every morning LASIX 20 MG ORAL TABLET 492430 FUROSEMIDE Inactive POTASSIUM CHLORIDE ER 10 MEQ ORAL CAPSULE EXTENDED RELEASE 1 capsule BID 2016 POTASSIUM CHLORIDE ER 10 MEQ ORAL CAPSULE EXTENDED RELEASE POTASSIUM CHLORIDE Inactive POTASSIUM CHLORIDE 20 MEQ ORAL PACKET 1 tab po q day POTASSIUM CHLORIDE 20 MEQ ORAL PACKET 4230419 POTASSIUM CHLORIDE Inactive PREDNISONE 20 MG ORAL TABLET 2 tablets by mouth today, then 1 tablet by mouth days 2-3 PREDNISONE 20 MG ORAL TABLET 698517 PREDNISONE Inactive SPIRONOLACTONE 25 MG ORAL TABLET 1 tablet by mouth daily SPIRONOLACTONE 25 MG ORAL TABLET 690628 SPIRONOLACTONE Inactive AZITHROMYCIN 250 MG ORAL TABLET 2 po qd x 1 day, then 1 po qd x 4 days 04/06 AZITHROMYCIN 250 MG ORAL TABLET 004628 AZITHROMYCIN Inactive AZITHROMYCIN 250 MG ORAL TABLET 2 po qd x 1 day, then 1 po qd x 4 days 12/30 AZITHROMYCIN 250 MG ORAL TABLET 473058 AZITHROMYCIN Inactive PREDNISONE 20 MG ORAL TABLET 2 po qd x 5 days PREDNISONE 20 MG ORAL TABLET 981762 PREDNISONE Inactive Vital Signs Date Name Value [...] Panel - Chemistry sodium, serum 140 mmol/L 106-199 8967/07/13 potassium, serum 3.2 mmol/L 3.5-5.2 chloride, serum 103 mmol/L 98-107 carbon dioxide, venous blood 26.9 mmol/L 21.0-32.0 blood glucose 93 mg/dL 65-110 calcium, serum 9.2 mg/dL 8.5-10.1 urea nitrogen, blood 13 mg/dL 7-18 creatinine, serum 0.84 mg/dL 0.60-1.30 sodium, serum 140 mmol/L 320-219 0734/08/21 potassium, serum 3.8 mmol/L 3.5-5.2 chloride, serum [...] ... - Chemistry sodium, serum 141 mmol/L 888-971 0637/08/07 carbon dioxide, venous blood 34.0 mmol/L 21.0-32.0 [...] 1.40 mg/dL 0.00-1.00 cholesterol, serum 192 mg/dL 381-531 1152/10/19 triglyceride, serum, fasting 71 mg/dL 30-200 HDL cholesterol, serum 72 mg/dL 32-60 LDL cholesterol, serum 106 mg/dL 0-130 Lab Report: Rapid Strep - Lab Microbial identification kit, rapid strep method Negative Negative Lab Report: THEOPHYLLINE - Toxicology theophylline level, serum 3.1 ug/mL 10.0-20.0 Encounters Code Encounter Date Provider Facility CPT-50444 Level 4 Est. Patient 10:17:51 [employer] Hrainder Cr [facility] CPT-80262 Level 3 Est. Patient 12:36:15 [employer] Harinder Cr [facility] CPT-29019 Level 3 Est. Patient 15:14:45 [employer] Harinder Cr [facility] CPT-11376 Level 4 Est. Patient 14:45:25 CDT Harinder Cr [facility] CPT-41300 Level 4 Est. Patient 09:15:13 CDT Harinder Cr [facility] CPT-64966 Level 3 Est. Patient 11:51:58 CDT Harinder Cr [facility] CPT-03864 Level 3 Est. Patient 11:30:05 CDT Harinder Cr [facility] CPT-77078 Level 4 Est. Patient 10:19:23 CDT Harinder Cr [facility] CPT-80029 Level 3 Est. Patient 09:58:58 CDT Harinder Cr [facility] CPT-52123 Level 3 Est. Patient 12:37:21 CDT Harinder Cr [facility] CPT-05672 Level 3 Est. Patient 18:37:17 CDT Harinder Hernandez [facility] CPT-48422 Level 4 Est. Patient 11:15:54 CDT Nettie Newberry APRN [facility] CPT-82050 Level 3 Est. Patient 16:42:24 CDT Harinder Hernandez [facility] CPT-01895 Level 3 Est. Patient 15:03:36 CDT Harinder Hernandez [facility] CPT-37901 Level 3 Est. Patient 15:03:20 CDT Harinder Hernandez [facility] CPT-51253 Level 3 Est. Patient 12:14:34 CDT Harinder Hernandez [facility] CPT-89140 Level 3 Est. Patient 13:47:15 CDT Harinder Hernandez [facility] CPT-62002 Level 3 Est. Patient 14:08:24 CDT Harinder Hernandez [facility] CPT-03089 Level 3 Est. Patient 10:07:15 CDT Harinder Hernandez [facility] CPT-00041 Level 3 Est. Patient 10:06:59 CDT Harinder Hernandez [facility] CPT-26412 Level 3 Est. Patient 15:53:29 CDT Jae Morgan MD [facility] CPT-57894 Level 3 Est. Patient 17:19:04 CDT Harinder Hernandez [facility] CPT-45211 Level 3 Est. Patient 11:13:01 CDT Harinder Shaye Hernandez [facility] CPT-82526 Level 3 Est. Patient 09:03:58 CDT Harinder Hernandez [facility] CPT-13035 Level 3 Est. Patient 14:46:45 [employer] Harinder Cr David [facility] CPT-61255 Level 3 Est. Patient 09:35:49 [employer] Harinder W [facility] CPT-58059 Level 3 Est. Patient 09:29:37 [employer] Harinder Hernandez [facility] CPT-25516 Level 3 Est. Patient 15:51:07 CDT Harinder Hernandez [facility] CPT-87990 Level 3 Est. Patient 18:13:13 CDT Harinder Hernandez [facility] CPT-59069 Level 3 Est. Patient 10:44:19 CDT Harinder Hernandez [facility] CPT-91604 Level 4 Est. Patient 10:07:19 [employer] Harinder Cr [facility] CPT-19385 Level 3 Est. Patient 15:59:32 [employer] Harinder Hernandez [facility] Procedures Code Procedure Name Date Entry Date Standard Description CPT-G0009 Administration of Pneumococcal Vaccine 10:33:25 [employer] CPT-37673 Pneumovax 23 Injection Injectable 25 MCG/0.5ML 10:33:25 [employer] CPT-18436 First Vx - Ix admin for Medicare patients 10:33:25 [employer] CPT-56114 Fluzone Quadrivalent Intramuscular Suspension 0.5 ML 10: 33:25 [employer] CPT-Cryo Cryotherapy 10:17:51 [employer] CPT-G0438 Initial Annual Wellness Exam 10:08:59 [employer] CPT-89183 Abd compl w upright - XRAY USE ONLY 14:48:09 CDT 02/18 CPT-24526 Port a cath flush 13:46:05 CDT CPT-81319 Hip, complete, 2-3 views - XRAY USE ONLY 10:28:40 CDT CPT-68103 BMP - LAB USE ONLY 16:45:09 [employer] CPT-51248 Port a cath flush 12:00:13 [employer] CPT-TCMM Transitional Care Mgmt-Moderate 11:20:16 [employer] CPT-11130 First Vx - Ix admin for Medicare patients 17:35:15 CDT CPT-71870 Fluzone Preservative Free Intramuscular Suspension 17:35 :15 CDT CPT-91531 Microalbumin - LAB USE ONLY 11:52:05 CDT CPT-TCMM Transitional Care Mgmt-Moderate 11:33:57 CDT CPT-00635 No Charge Offi Visit 14:11:29 CDT CPT-22169 Magnesium - LAB USE ONLY 10:45:44 CDT CPT-29023 Lipid - LAB USE ONLY 10:45:44 CDT CPT-90389 CBC - LAB USE ONLY 10:45:44 CDT CPT-11340 Venipuncture Draw Fee 10:45:43 CDT CPT-15705 Venipuncture Draw Fee 18:21:27 CDT CPT-JTINJ Asp/Joint Injection 18:38:04 CDT CPT-72546 Immunization Each Additional Inj 17:38:04 CDT CPT-54524 Immunization Single Admin 17:38:04 CDT CPT-24438 Prevnar 13 17:38:04 CDT CPT-55486 Fluzone Quadrivalent preservative free (>=3yrs.) 17:38: 04 CDT CPT-93411 No Charge Offi Visit 11:14:03 CDT CPT-74875 Chest 2V Frontal and Lat 14:00:18 CDT CPT-OV Office Visit 16:10:28 CDT CPT-JTINJ Asp/Joint Injection 09:03:57 CDT CPT-Cryo Cryotherapy 09:35:49 [employer] CPT-JTINJ Asp/Joint Injection 09:34:45 [employer] CPT-J2930 Solu Medrol 125 mg (Methyl Prednisolone Sodium Succinate) 20:37:27 CDT CPT-32457 Abx/Therapy Injection 20:37:27 CDT CPT-73036 Port a cath flush 08:15:51 CDT CPT-82685 Port a cath flush 09:54:16 CDT CPT-70612 Port a cath flush 09:38:02 CDT CPT-56560 Port a cath flush 11:00:27 [employer]
--- OUTSIDE RECORDS SUMMARY | 2017-12-29 01:16 | XMS REPORT | Clinical Summary ---
Author Author Admin, QIE Organization [facility] [employer] Address Unknown Phone Unavailable Allergies, Adverse Reactions, [...] Active Harinder Hernandez DO LATEX Critical Active Haridner Hernandez DO IBUPROFEN Critical Active Harinder Hernandez [...] quadrant Needs vaccination for influenza V04.81 Resolved Harnider Cr David DO Need for prophylactic vaccination [...] Harinder Hernandez DO Bacteremia ICD-790.7 Inactive Harinder rC David DO 10/02 Clostridium difficile colitis ICD-008.45 [...] MG/0.3ML INJ SOAJ 1 INJ NEEDED EPINEPHRINE 53372916360 Active Tawnya Pardo MA Active PREDNISONE 20 MG TAB 1 tab twice daily for 3 day, then one daily for three days PREDNISONE 64880480015 No Longer Active Harinder Hernandez DO Active PREDNISONE 20 MG TAB 1 tablet twice daily for 2 days, then 1 tablet once daily for 2 days PREDNISONE 22879158544 No Longer Active Harinder Hernandez DO Active ASMANEX 120 METERED DOSES 220 MCG/INH INH AEPB 2 puffs orally twice daily MOMETASONE FUROATE 14623661932 Active Jeri Sosa RPT,RMA Active NIFEDIPINE ER 30 MG ORAL [id number] 1 daily NIFEDIPINE 56236761431 Active Kaylah Newberry Active TOPIRAMATE 25 MG TABS 1 tab po BID TOPIRAMATE 87945271283 No Longer Active Nettie Newberry APRN Active AMLODIPINE BESYLATE 5 MG ORAL TABS Take 1 tab po daily AMLODIPINE BESYLATE 09516382128 No Longer Active Nettie Newberry APRN Active MECLIZINE HCL 25 MG TAB 1 tablet three times daily for 3 days, then 1/2 tab three times daily for 3 days. MECLIZINE HCL 63807939189 No Longer Active Nettie Newberry APRN Active AMITRIPTYLINE HCL 25 MG ORAL TABS 1 q hs prn AMITRIPTYLINE HCL 03419332359 No Longer Active Nettie Newberry APRN Active DILAUDID 2 MG ORAL TABS Take 1/2 tab po every 4 hours as needed for pain 2014 HYDROMORPHONE HCL 71044086781 No Longer Active Nettie Newberry APRN Active CLOPIDOGREL BISULFATE 75 MG ORAL TABS 1 tab by mouth once daily CLOPIDOGREL BISULFATE 74096217717 Active Tawnya Pardo MA Active ATORVASTATIN CALCIUM 10 MG ORAL TABS 1 at bedtime ATORVASTATIN CALCIUM 68856256947 Active Tawnya Pardo MA Active LOVASTATIN 40 MG ORAL TABS Take 1 tab po every hs LOVASTATIN 68126276069 No Longer Active Harinder Hernandez DO Active PREDNISONE 20 MG TAB 2 tabs daily for 4 days, 1 tab daily for 4 days, 1/2 tab daily for 4 days PREDNISONE 38895026428 No Longer Active Harinder Hernandez DO Active LEVAQUIN 500 MG ORAL TABS Take 1 tab po daily x 8 days LEVOFLOXACIN 68436673099 No Longer Active Harinder Hernandez DO Active VENTOLIN HFA 108 (90 BASE) MCG/ACT AERS 2 -4 puffs four times a day PRN 2013 ALBUTEROL SULFATE 64228187340 No Longer Active Jeri Sosa RPT,RMA Active ACEBUTOLOL HCL 200 MG CAPS 1 cap in the morning and 2 caps in the evening ACEBUTOLOL HCL 53200376332 No Longer Active Harinder Hernandez DO Active CEFDINIR 300 MG ORAL CAPS take 1 cap po bid x 10 days CEFDINIR 97164289497 No Longer Active Harinder Hernandez DO Active LOVASTATIN 40 MG TABS 1 pill by mouth nightly for cholesterol LOVASTATIN 48373918673 No Longer Active Nettie Newberry APRN Active NITROSTAT 0.4 MG SUBL 1 tab under tongueas needed for chest pain ( may take 3 total, 5 min apart, then call 911) NITROGLYCERIN 42493277091 No Longer Active Nettie Newberry APRN Active POTASSIUM CHLORIDE CR 10 MEQ CPCR 1 capsule by mouth daily 02/14 POTASSIUM CHLORIDE 96603342610 No Longer Active Nettie Newberry APRN Active TESSALON PERLES 100 MG CAP 1 to 2 tablets by mouth 3 times daily as needed for cough BENZONATATE 17167955568 No Longer Active Nettie Newberry APRN Active THEOPHYLLINE ER 200 MG ORAL [id number] Take 1 tab every 12 hours THEOPHYLLINE 26508040398 Active Tawnya Pardo MA Active PREDNISONE 20 MG TAB 2 po qd x 5 days PREDNISONE 39737165536 No Longer Active Jae Morgan MD Active AZITHROMYCIN 250 MG TABS 2 po qd x 1 day, then 1 po qd x 4 days AZITHROMYCIN 57930013196 No Longer Active Jae Morgan MD Active PREDNISONE 20 MG TAB 1 tab twice daily for 3 day, then one daily for three days PREDNISONE 03551748075 No Longer Active Jae Morgan MD Active SINGULAIR 10 MG TABS 1 pill by mouth every evening for breathing. MONTELUKAST SODIUM 88298106379 Active Tawnya Pardo MA Active TYLENOL 325 MG TAB 3 by mouth q4h as needed ACETAMINOPHEN 02312652438 Active Harinder Hernandez DO Active POTASSIUM CHLORIDE ER 10 MEQ CR-TABS take 1 tab po daily POTASSIUM CHLORIDE 16928948889 No Longer Active Harinder Hernandez DO Active PREDNISONE 20 MG TAB 1 TID x 2 days, then 1 BID x 3 days, then 1 Daily x 3 days, then stop PREDNISONE 56104527347 No Longer Active John Montemayor APRN Active LEVAQUIN 500 MG TAB 1 tablet by mouth daily LEVOFLOXACIN 01244527636 No Longer Active Jillkvng Montemayor APRN Active NEURONTIN 300 MG CAP 1 cap by mouth three times daily for restless leg 06/22 GABAPENTIN 03043735661 No Longer Active Harinder Hernandez DO Active BENZONATATE 100 MG CAPS 1 cap po TID PRN BENZONATATE 02652671785 No Longer Active Harinder Hernandez DO Active MONTELUKAST SODIUM 10 MG TABS 1 tab po in the evening MONTELUKAST SODIUM 65257648952 No Longer Active Harinder Hernandez DO Active MUPIROCIN 2 % OINT apply to affected area BID x 14 days MUPIROCIN 08569866980 No Longer Active Harinder Hernandez DO Active TYLENOL EXTRA STRENGTH 500 MG TABS as needed ACETAMINOPHEN 60631357056 No Longer Active Harinder Hernandez DO Active PREDNISONE 10 MG TABS 1 tab po daily PREDNISONE 27318502031 No Longer Active Harinder Hernandez DO Active PREDNISONE 20 MG TAB 2 tabs daily for 4 days, 1 tab daily for 4 days, 1/2 tab daily for 4 days PREDNISONE 13070338678 No Longer Active Harinder Hernandez DO Active AZITHROMYCIN 250 MG TABS 2 po qd x 1 day, then 1 po qd x 4 days AZITHROMYCIN 46631601707 No Longer Active Harinder Hernandez DO Active PREDNISONE 20 MG TAB 3 tabs today, then 1 tab twice daily for 3 day, then one daily for three days PREDNISONE 70243059901 No Longer Active Harinder Hernandez DO Active NIFEDIAC CC 30 MG [id number] 1 tablet daily for raynaud's syndrome NIFEDIPINE 77093370774 No Longer Active Tawnya Pardo MA Active AMBIEN 10 MG TAB 1/2 tab by mouth at bedtime as needed for sleep ZOLPIDEM TARTRATE 04343660762 Active Harinder Hernandez DO Active CLONAZEPAM 1 MG TABS 1 tablet at bedtime for insomnia and restless legs 09/14 CLONAZEPAM 67106193190 Active Kaylah Newberry Active CLONAZEPAM 0.5 MG TABS 1 tab po daily CLONAZEPAM 80850478482 No Longer Active Harinder Hernandez DO Active PREDNISONE 10 MG TAB 1 tablet daily for COPD PREDNISONE 60746424512 Active Tawnya Pardo MA Active PROAIR HFA 108 (90 BASE) MCG/ACT AERS 2 puffs four times a day as needed 2012 ALBUTEROL SULFATE 08685727201 Active Tawnya Pardo MA Active FLOVENT HFA 110 MCG/ACT AERO 2 puffs inhaled b.i.d. FLUTICASONE PROPIONATE HFA 82995628714 Active Tawnya Pardo MA Active ACIPHEX 20 MG TBEC 1 tab po daily RABEPRAZOLE SODIUM 05116980179 Active Kaylah Newberry Active CLONAZEPAM 0.5 MG TABS 1 tab po daily CLONAZEPAM 0.5 MG TABS 116360 CLONAZEPAM Inactive PREDNISONE 20 MG TAB 3 tabs today, then 1 tab twice daily for 3 day, then one daily for three days PREDNISONE 20 MG TAB 038242 PREDNISONE Inactive PREDNISONE 20 MG TAB 2 tabs daily for 4 days, 1 tab daily for 4 days, 1/2 tab daily for 4 days PREDNISONE 20 MG TAB 277659 PREDNISONE Inactive PREDNISONE 10 MG TABS 1 tab po daily PREDNISONE 10 MG TABS 890765 PREDNISONE Inactive TYLENOL EXTRA STRENGTH 500 MG TABS as needed TYLENOL EXTRA STRENGTH 500 MG TABS 439733 ACETAMINOPHEN Inactive MUPIROCIN 2 % OINT apply to affected area BID x 14 days MUPIROCIN 2 % OINT 678515 MUPIROCIN Inactive MONTELUKAST SODIUM 10 MG TABS 1 tab po in the evening MONTELUKAST SODIUM 10 MG TABS 565573 MONTELUKAST SODIUM Inactive BENZONATATE 100 MG CAPS 1 cap po TID PRN BENZONATATE 100 MG CAPS 976621 BENZONATATE Inactive NEURONTIN 300 MG CAP 1 cap by mouth three times daily for restless leg 06/22 NEURONTIN 300 MG CAP 531288 GABAPENTIN Inactive LEVAQUIN 500 MG TAB 1 tablet by mouth daily LEVAQUIN 500 MG TAB 877893 LEVOFLOXACIN Inactive PREDNISONE 20 MG TAB 1 TID x 2 days, then 1 BID x 3 days, then 1 Daily x 3 days, then stop PREDNISONE 20 MG TAB 397453 PREDNISONE Inactive POTASSIUM CHLORIDE ER 10 MEQ CR-TABS take 1 tab po daily POTASSIUM CHLORIDE ER 10 MEQ CR-TABS POTASSIUM CHLORIDE Inactive PREDNISONE 20 MG TAB 1 tab twice daily for 3 day, then one daily for three days PREDNISONE 20 MG TAB 875598 PREDNISONE Inactive TESSALON PERLES 100 MG CAP 1 to 2 tablets by mouth 3 times daily as needed for cough TESSALON PERLES 100 MG CAP 999263 BENZONATATE Inactive POTASSIUM CHLORIDE CR 10 MEQ CPCR 1 capsule by mouth daily 02/14 POTASSIUM CHLORIDE CR 10 MEQ CPCR POTASSIUM CHLORIDE Inactive NITROSTAT 0.4 MG SUBL 1 tab under tongueas needed for chest pain ( may take 3 total, 5 min apart, then call 911) NITROSTAT 0.4 MG SUBL 480218 NITROGLYCERIN Inactive LOVASTATIN 40 MG TABS 1 pill by mouth nightly for cholesterol LOVASTATIN 40 MG TABS 797244 LOVASTATIN Inactive CEFDINIR 300 MG ORAL CAPS take 1 cap po bid x 10 days CEFDINIR 300 MG ORAL CAPS 703771 CEFDINIR Inactive ACEBUTOLOL HCL 200 MG CAPS 1 cap in the morning and 2 caps in the evening ACEBUTOLOL HCL 200 MG CAPS 116683 ACEBUTOLOL HCL Inactive VENTOLIN HFA 108 (90 BASE) MCG/ACT AERS 2 -4 puffs four times a day PRN 2013 VENTOLIN HFA 108 (90 BASE) MCG/ACT AERS ALBUTEROL SULFATE Inactive LEVAQUIN 500 MG ORAL TABS Take 1 tab po daily x 8 days LEVAQUIN 500 MG ORAL TABS 369954 LEVOFLOXACIN Inactive PREDNISONE 20 MG TAB 2 tabs daily for 4 days, 1 tab daily for 4 days, 1/2 tab daily for 4 days PREDNISONE 20 MG TAB 942814 PREDNISONE Inactive LOVASTATIN 40 MG ORAL TABS Take 1 tab po every hs LOVASTATIN 40 MG ORAL TABS 086880 LOVASTATIN Inactive DILAUDID 2 MG ORAL TABS Take 1/2 tab po every 4 hours as needed for pain 2014 DILAUDID 2 MG ORAL TABS 271347 HYDROMORPHONE HCL Inactive AMITRIPTYLINE HCL 25 MG ORAL TABS 1 q hs prn AMITRIPTYLINE HCL 25 MG ORAL TABS 602737 AMITRIPTYLINE HCL Inactive MECLIZINE HCL 25 MG TAB 1 tablet three times daily for 3 days, then 1/2 tab three times daily for 3 days. MECLIZINE HCL 25 MG TAB 711486 MECLIZINE HCL Inactive AMLODIPINE BESYLATE 5 MG ORAL TABS Take 1 tab po daily AMLODIPINE BESYLATE 5 MG ORAL TABS 231650 AMLODIPINE BESYLATE Inactive TOPIRAMATE 25 MG TABS 1 tab po BID TOPIRAMATE 25 MG TABS 848471 TOPIRAMATE Inactive PREDNISONE 20 MG TAB 1 tablet twice daily for 2 days, then 1 tablet once daily for 2 days PREDNISONE 20 MG TAB 909154 PREDNISONE Inactive PREDNISONE 20 MG TAB 1 tab twice daily for 3 day, then one daily for three days PREDNISONE 20 MG TAB 068777 PREDNISONE Inactive AZITHROMYCIN 250 MG TABS 2 po qd x 1 day, then 1 po qd x 4 days AZITHROMYCIN 250 MG TABS 2639135 AZITHROMYCIN Inactive AZITHROMYCIN 250 MG TABS 2 po qd x 1 day, then 1 po qd x 4 days AZITHROMYCIN 250 MG TABS 3277315 AZITHROMYCIN Inactive PREDNISONE 20 MG TAB 2 po qd x 5 days PREDNISONE 20 MG TAB 914918 PREDNISONE Inactive Vital Signs Date Name Value [...] Magnesium - Chemistry cholesterol, serum 180 mg/dL 809-556 3055/08/08 triglyceride, serum, fasting 92 mg/dL 30-200 HDL cholesterol, serum 66 mg/dL 32-96 LDL cholesterol, serum 96 mg/dL 0-130 sodium, serum 142 mmol/L 648-204 3343/08/08 carbon dioxide, venous blood 27.4 mmol/L 21.0-32.0 [...] 10.0-20.0 Encounters Code Encounter Date Provider Facility CPT-35095 Level 3 Est. Patient 09:58:58 CDT Harinder Cr [facility] CPT-92357 Level 3 Est. Patient 12:37:21 CDT Harinder Cr [facility] CPT-66156 Level 3 Est. Patient 18:37:17 CDT Harinder Cr [facility] CPT-16835 Level 4 Est. Patient 11:15:54 CDT Nettie Newberry ONLINE EDUCATION MANAGER [facility] CPT-20265 Level 3 Est. Patient 16:42:24 CDT Harinder Cr [facility] CPT-30110 Level 3 Est. Patient 15:03:36 CDT Harinder Cr [facility] CPT-78197 Level 3 Est. Patient 15:03:20 CDT Harinder Cr [facility] CPT-44585 Level 3 Est. Patient 12:14:34 CDT Harinder Cr [facility] CPT-03496 Level 3 Est. Patient 13:47:15 CDT Harinder Hernandez [facility] CPT-42507 Level 3 Est. Patient 14:08:24 CDT Harinder Hernandez [facility] CPT-82428 Level 3 Est. Patient 10:07:15 CDT Harinder Hernandez [facility] CPT-04425 Level 3 Est. Patient 10:06:59 CDT Harinder Hernandez [facility] CPT-64971 Level 3 Est. Patient 15:53:29 CDT Jae Morgan MD [facility] CPT-99200 Level 3 Est. Patient 17:19:04 CDT Harinder Hernandez [facility] CPT-69013 Level 3 Est. Patient 11:13:01 CDT Harinder Hernandez [facility] CPT-26788 Level 3 Est. Patient 09:03:58 CDT Harinder Hernandez [facility] CPT-23188 Level 3 Est. Patient 14:46:45 MAINTENANCE TEAM MEMBER Harinder Hernandez [facility] CPT-10136 Level 3 Est. Patient 09:35:49 MAINTENANCE TEAM MEMBER Harinder Shaye Hernandez [facility] CPT-23792 Level 3 Est. Patient 09:29:37 MAINTENANCE TEAM MEMBER Harinder Cr [facility] CPT-46073 Level 3 Est. Patient 15:51:07 CDT Harinder Hernandez [facility] CPT-96654 Level 3 Est. Patient 18:13:13 CDT Harinder Cr David [facility] CPT-14542 Level 3 Est. Patient 10:44:19 CDT Hrainder Hernandez [facility] CPT-96304 Level 4 Est. Patient 10:07:19 MAINTENANCE TEAM MEMBER Harinder Hernandez [facility] CPT-84415 Level 3 Est. Patient 15:59:32 MAINTENANCE TEAM MEMBER Harinder Hernandez [facility] Procedures Code Procedure Name Date Entry Date Standard Description CPT-27488 Microalbumin - LAB USE ONLY 11:52:05 CDT CPT-TCMM Transitional Care Mgmt-Moderate 11:33:57 CDT CPT-36691 No Charge Offi Visit 14:11:29 CDT CPT-09593 Magnesium - LAB USE ONLY 10:45:44 CDT CPT-54813 Lipid - LAB USE ONLY 10:45:44 CDT CPT-03028 CBC - LAB USE ONLY 10:45:44 CDT CPT-82244 Venipuncture Draw Fee 10:45:43 CDT CPT-19738 Venipuncture Draw Fee 18:21:27 CDT CPT-JTINJ Asp/Joint Injection 18:38:04 CDT CPT-72032 Immunization Each Additional Inj 17:38:04 CDT CPT-93498 Immunization Single Admin 17:38:04 CDT CPT-55531 Prevnar 13 17:38:04 CDT CPT-24433 Fluzone Quadrivalent preservative free (>=3yrs.) 17:38: 04 CDT CPT-92556 No Charge Offi Visit 11:14:03 CDT CPT-24430 Chest 2V Frontal and Lat 14:00:18 CDT CPT-OV Office Visit 16:10:28 CDT CPT-JTINJ Asp/Joint Injection 09:03:57 CDT CPT-Cryo Cryotherapy 09:35:49 MAINTENANCE TEAM MEMBER CPT-JTINJ Asp/Joint Injection 09:34:45 MAINTENANCE TEAM MEMBER CPT-J2930 Solu Medrol 125 mg (Methyl Prednisolone Sodium Succinate) 20:37:27 CDT CPT-16397 Abx/Therapy Injection 20:37:27 CDT CPT-72094 Port a cath flush 08:15:51 CDT CPT-54114 Port a cath flush 09:54:16 CDT CPT-87144 Port a cath flush 09:38:02 CDT CPT-57898 Port a cath flush 11:00:27 MAINTENANCE TEAM MEMBER
--- OUTSIDE RECORDS SUMMARY | 2017-12-29 01:17 | XMS REPORT | Clinical Summary ---
Author Author Admin, QIE Organization [facility] Address Unknown Phone Unavailable Allergies, Adverse Reactions, [...] Hernandez DO Nausea and vomiting ICD-787.01 Inactive Jea Morgan MD Diarrhea ICD-787.91 Inactive Jae Morgan [...] neb q 4hrs PRN Wheezing ALBUTEROL SULFATE [id number] Active Harinder Hernandez DO Active FLOVENT HFA 110 MCG/ACT AERO 2 puffs inhaled b.i.d. FLUTICASONE PROPIONATE HFA 35968317272 Active Harinder Hernandez DO Active POTASSIUM CHLORIDE CR 10 MEQ CPCR 1 capsule by mouth daily POTASSIUM CHLORIDE 63067097075 Active Harinder Hernandez DO Active EPIPEN 2-BRUNA 0.3 MG/0.3ML INJ SOAJ 1 INJ NEEDED EPINEPHRINE 33688056020 Active Tawnya Pardo MA Active PREDNISONE 20 MG TAB 1 tab twice daily for 3 day, then one daily for three days PREDNISONE 88675740077 No Longer Active Harinder Hernandez DO Active PREDNISONE 20 MG TAB 1 tablet twice daily for 2 days, then 1 tablet once daily for 2 days PREDNISONE 42229848584 No Longer Active Harinder Hernandez DO Active ASMANEX 120 METERED DOSES 220 MCG/INH INH AEPB 2 puffs orally twice daily MOMETASONE FUROATE 33801870017 Active Jeri Sosa RPT,RMA Active NIFEDIPINE ER 30 MG ORAL [id number] 1 daily NIFEDIPINE 78586341458 Active Harinder Hernandez DO Active TOPIRAMATE 25 MG TABS 1 tab po BID TOPIRAMATE 33615011640 No Longer Active Nettie Newberry APRN Active AMLODIPINE BESYLATE 5 MG ORAL TABS Take 1 tab po daily AMLODIPINE BESYLATE 28075359920 No Longer Active Nettie Newberry APRN Active MECLIZINE HCL 25 MG TAB 1 tablet three times daily for 3 days, then 1/2 tab three times daily for 3 days. MECLIZINE HCL 76390178402 No Longer Active Nettie Newberry APRN Active AMITRIPTYLINE HCL 25 MG ORAL TABS 1 q hs prn AMITRIPTYLINE HCL 59544534071 No Longer Active Nettie Newberry APRN Active DILAUDID 2 MG ORAL TABS Take 1/2 tab po every 4 hours as needed for pain 2014 HYDROMORPHONE HCL 37980352844 No Longer Active Nettie Newberry APRN Active CLOPIDOGREL BISULFATE 75 MG ORAL TABS 1 tab by mouth once daily CLOPIDOGREL BISULFATE 39624701819 Active Tawnya Pardo MA Active ATORVASTATIN CALCIUM 10 MG ORAL TABS 1 at bedtime ATORVASTATIN CALCIUM 54369066065 Active Tawnya Pardo MA Active LOVASTATIN 40 MG ORAL TABS Take 1 tab po every hs LOVASTATIN 39132417793 No Longer Active Harinder Hernandez DO Active PREDNISONE 20 MG TAB 2 tabs daily for 4 days, 1 tab daily for 4 days, 1/2 tab daily for 4 days PREDNISONE 59723545447 No Longer Active Harinder Hernandez DO Active LEVAQUIN 500 MG ORAL TABS Take 1 tab po daily x 8 days LEVOFLOXACIN 55535569148 No Longer Active Harinder Hernandez DO Active VENTOLIN HFA 108 (90 BASE) MCG/ACT AERS 2 -4 puffs four times a day PRN 2013 ALBUTEROL SULFATE 39350965779 No Longer Active Jeri Sosa RPT,RMA Active ACEBUTOLOL HCL 200 MG CAPS 1 cap in the morning and 2 caps in the evening ACEBUTOLOL HCL 30962246813 No Longer Active Harinder Hernandez DO Active CEFDINIR 300 MG ORAL CAPS take 1 cap po bid x 10 days CEFDINIR 84674925587 No Longer Active Harinder Hernandez DO Active LOVASTATIN 40 MG TABS 1 pill by mouth nightly for cholesterol LOVASTATIN 24463095659 No Longer Active Nettie Newberry APRN Active NITROSTAT 0.4 MG SUBL 1 tab under tongueas needed for chest pain ( may take 3 total, 5 min apart, then call 911) NITROGLYCERIN 96449204948 No Longer Active Nettie Newberry MAHENDRA Active POTASSIUM CHLORIDE CR 10 MEQ CPCR 1 capsule by mouth daily 02/14 POTASSIUM CHLORIDE 43210051625 No Longer Active Nettie Newberry MAHENDRA Active TESSALON PERLES 100 MG CAP 1 to 2 tablets by mouth 3 times daily as needed for cough BENZONATATE 91718982708 No Longer Active Nettie Newberry MAHENDRA Active THEOPHYLLINE ER 200 MG ORAL [id number] Take 1 tab every 12 hours THEOPHYLLINE 22164669980 Active Tawnya Pardo MA Active PREDNISONE 20 MG TAB 2 po qd x 5 days PREDNISONE 06077945098 No Longer Active Jae Morgan MD Active AZITHROMYCIN 250 MG TABS 2 po qd x 1 day, then 1 po qd x 4 days AZITHROMYCIN 34268451750 No Longer Active Jae Morgan MD Active PREDNISONE 20 MG TAB 1 tab twice daily for 3 day, then one daily for three days PREDNISONE 24272112002 No Longer Active Jae Morgan MD Active SINGULAIR 10 MG TABS 1 pill by mouth every evening for breathing. MONTELUKAST SODIUM 55897950816 Active Tawnya Pardo MA Active TYLENOL 325 MG TAB 3 by mouth q4h as needed ACETAMINOPHEN 38679673212 Active Harinder Hernandez DO Active POTASSIUM CHLORIDE ER 10 MEQ CR-TABS take 1 tab po daily POTASSIUM CHLORIDE 72521249161 No Longer Active Harinder Hernandez DO Active PREDNISONE 20 MG TAB 1 TID x 2 days, then 1 BID x 3 days, then 1 Daily x 3 days, then stop PREDNISONE 14044115196 No Longer Active Jillkvng Montemayor APRN Active LEVAQUIN 500 MG TAB 1 tablet by mouth daily LEVOFLOXACIN 59130499430 No Longer Active Jillina Frazell [employer] Active NEURONTIN 300 MG CAP 1 cap by mouth three times daily for restless leg 06/22 GABAPENTIN 55782391681 No Longer Active Harinder Hernandez DO Active BENZONATATE 100 MG CAPS 1 cap po TID PRN BENZONATATE 12071086608 No Longer Active Harinder Hernandez DO Active MONTELUKAST SODIUM 10 MG TABS 1 tab po in the evening MONTELUKAST SODIUM 73055683594 No Longer Active Harinder Hernandez DO Active MUPIROCIN 2 % OINT apply to affected area BID x 14 days MUPIROCIN 50499679100 No Longer Active Harinder Hernandez DO Active TYLENOL EXTRA STRENGTH 500 MG TABS as needed ACETAMINOPHEN 87363787761 No Longer Active Harinder Hernandez DO Active PREDNISONE 10 MG TABS 1 tab po daily PREDNISONE 84658479492 No Longer Active Harinder Hernandez DO Active PREDNISONE 20 MG TAB 2 tabs daily for 4 days, 1 tab daily for 4 days, 1/2 tab daily for 4 days PREDNISONE 78085724520 No Longer Active Harinder Hernandez DO Active AZITHROMYCIN 250 MG TABS 2 po qd x 1 day, then 1 po qd x 4 days AZITHROMYCIN 60222490016 No Longer Active Harinder Hernandez DO Active PREDNISONE 20 MG TAB 3 tabs today, then 1 tab twice daily for 3 day, then one daily for three days PREDNISONE 14031342094 No Longer Active Harinder Hernandez DO Active NIFEDIAC CC 30 MG [id number] 1 tablet daily for raynaud's syndrome NIFEDIPINE 04076809985 No Longer Active Tawnya Pardo MA Active AMBIEN 10 MG TAB 1/2 tab by mouth at bedtime as needed for sleep ZOLPIDEM TARTRATE 74373847191 Active Harinder Hernandez DO Active CLONAZEPAM 1 MG TABS 1 tablet at bedtime for insomnia and restless legs 09/14 CLONAZEPAM 68268366853 Active Harinder Hernandez DO Active CLONAZEPAM 0.5 MG TABS 1 tab po daily CLONAZEPAM 29037192685 No Longer Active Harinder Hernandez DO Active PREDNISONE 10 MG TAB 1 tablet daily for COPD PREDNISONE 64653642597 Active Tawnya Pardo MA Active PROAIR HFA 108 (90 BASE) MCG/ACT AERS 2 puffs four times a day as needed 2012 ALBUTEROL SULFATE 22102302704 Active Tawnya Pardo MA Active FLOVENT HFA 110 MCG/ACT AERO 2 puffs inhaled b.i.d. FLUTICASONE PROPIONATE HFA 50825957402 Active Tawnya Pardo MA Active ACIPHEX 20 MG TBEC 1 tab po daily RABEPRAZOLE SODIUM 79593061892 Active Kaylah Newberry Active CLONAZEPAM 0.5 MG TABS 1 tab po daily CLONAZEPAM 0.5 MG TABS 604059 CLONAZEPAM Inactive PREDNISONE 20 MG TAB 3 tabs today, then 1 tab twice daily for 3 day, then one daily for three days PREDNISONE 20 MG TAB 171775 PREDNISONE Inactive PREDNISONE 20 MG TAB 2 tabs daily for 4 days, 1 tab daily for 4 days, 1/2 tab daily for 4 days PREDNISONE 20 MG TAB 484225 PREDNISONE Inactive PREDNISONE 10 MG TABS 1 tab po daily PREDNISONE 10 MG TABS 494855 PREDNISONE Inactive TYLENOL EXTRA STRENGTH 500 MG TABS as needed TYLENOL EXTRA STRENGTH 500 MG TABS 352213 ACETAMINOPHEN Inactive MUPIROCIN 2 % OINT apply to affected area BID x 14 days MUPIROCIN 2 % OINT 218092 MUPIROCIN Inactive MONTELUKAST SODIUM 10 MG TABS 1 tab po in the evening MONTELUKAST SODIUM 10 MG TABS 20010818 MONTELUKAST SODIUM Inactive BENZONATATE 100 MG CAPS 1 cap po TID PRN BENZONATATE 100 MG CAPS 739102 BENZONATATE Inactive NEURONTIN 300 MG CAP 1 cap by mouth three times daily for restless leg 06/22 NEURONTIN 300 MG CAP 150644 GABAPENTIN Inactive LEVAQUIN 500 MG TAB 1 tablet by mouth daily LEVAQUIN 500 MG TAB 519469 LEVOFLOXACIN Inactive PREDNISONE 20 MG TAB 1 TID x 2 days, then 1 BID x 3 days, then 1 Daily x 3 days, then stop PREDNISONE 20 MG TAB 362141 PREDNISONE Inactive POTASSIUM CHLORIDE ER 10 MEQ CR-TABS take 1 tab po daily POTASSIUM CHLORIDE ER 10 MEQ CR-TABS POTASSIUM CHLORIDE Inactive PREDNISONE 20 MG TAB 1 tab twice daily for 3 day, then one daily for three days PREDNISONE 20 MG TAB 405790 PREDNISONE Inactive TESSALON PERLES 100 MG CAP 1 to 2 tablets by mouth 3 times daily as needed for cough TESSALON PERLES 100 MG CAP 674092 BENZONATATE Inactive POTASSIUM CHLORIDE CR 10 MEQ CPCR 1 capsule by mouth daily 02/14 POTASSIUM CHLORIDE CR 10 MEQ CPCR POTASSIUM CHLORIDE Inactive NITROSTAT 0.4 MG SUBL 1 tab under tongueas needed for chest pain ( may take 3 total, 5 min apart, then call 911) NITROSTAT 0.4 MG SUBL 041100 NITROGLYCERIN Inactive LOVASTATIN 40 MG TABS 1 pill by mouth nightly for cholesterol LOVASTATIN 40 MG TABS 170319 LOVASTATIN Inactive CEFDINIR 300 MG ORAL CAPS take 1 cap po bid x 10 days CEFDINIR 300 MG ORAL CAPS 395841 CEFDINIR Inactive ACEBUTOLOL HCL 200 MG CAPS 1 cap in the morning and 2 caps in the evening ACEBUTOLOL HCL 200 MG CAPS 907226 ACEBUTOLOL HCL Inactive VENTOLIN HFA 108 (90 BASE) MCG/ACT AERS 2 -4 puffs four times a day PRN 2013 VENTOLIN HFA 108 (90 BASE) MCG/ACT AERS ALBUTEROL SULFATE Inactive LEVAQUIN 500 MG ORAL TABS Take 1 tab po daily x 8 days LEVAQUIN 500 MG ORAL TABS 070068 LEVOFLOXACIN Inactive PREDNISONE 20 MG TAB 2 tabs daily for 4 days, 1 tab daily for 4 days, 1/2 tab daily for 4 days PREDNISONE 20 MG TAB 929968 PREDNISONE Inactive LOVASTATIN 40 MG ORAL TABS Take 1 tab po every hs LOVASTATIN 40 MG ORAL TABS 064179 LOVASTATIN Inactive DILAUDID 2 MG ORAL TABS Take 1/2 tab po every 4 hours as needed for pain 2014 DILAUDID 2 MG ORAL TABS 906280 HYDROMORPHONE HCL Inactive AMITRIPTYLINE HCL 25 MG ORAL TABS 1 q hs prn AMITRIPTYLINE HCL 25 MG ORAL TABS 038711 AMITRIPTYLINE HCL Inactive MECLIZINE HCL 25 MG TAB 1 tablet three times daily for 3 days, then 1/2 tab three times daily for 3 days. MECLIZINE HCL 25 MG TAB 952527 MECLIZINE HCL Inactive AMLODIPINE BESYLATE 5 MG ORAL TABS Take 1 tab po daily AMLODIPINE BESYLATE 5 MG ORAL TABS 471226 AMLODIPINE BESYLATE Inactive TOPIRAMATE 25 MG TABS 1 tab po BID TOPIRAMATE 25 MG TABS 023724 TOPIRAMATE Inactive PREDNISONE 20 MG TAB 1 tablet twice daily for 2 days, then 1 tablet once daily for 2 days PREDNISONE 20 MG TAB 553430 PREDNISONE Inactive PREDNISONE 20 MG TAB 1 tab twice daily for 3 day, then one daily for three days PREDNISONE 20 MG TAB 114849 PREDNISONE Inactive AZITHROMYCIN 250 MG TABS 2 po qd x 1 day, then 1 po qd x 4 days AZITHROMYCIN 250 MG TABS 0433181 AZITHROMYCIN Inactive AZITHROMYCIN 250 MG TABS 2 po qd x 1 day, then 1 po qd x 4 days AZITHROMYCIN 250 MG TABS 8240317 AZITHROMYCIN Inactive PREDNISONE 20 MG TAB 2 po qd x 5 days PREDNISONE 20 MG TAB 812776 PREDNISONE Inactive Vital Signs Date Name Value [...] Magnesium - Chemistry cholesterol, serum 180 mg/dL 589-711 0314/08/08 triglyceride, serum, fasting 92 mg/dL 30-200 HDL cholesterol, serum 66 mg/dL 32-96 LDL cholesterol, serum 96 mg/dL 0-130 sodium, serum 142 mmol/L 127-918 2521/08/08 carbon dioxide, venous blood 27.4 mmol/L 21.0-32.0 [...] 10.0-20.0 Encounters Code Encounter Date Provider Facility CPT-49070 Level 3 Est. Patient 09:58:58 CDT Harinder Cr [facility] CPT-14433 Level 3 Est. Patient 12:37:21 CDT Harinder Hernandez [facility] CPT-40188 Level 3 Est. Patient 18:37:17 CDT Harinder Cr [facility] CPT-72136 Level 4 Est. Patient 11:15:54 CDT Nettie Newberry APRN [facility] CPT-99637 Level 3 Est. Patient 16:42:24 CDT Harinder Cr [facility] CPT-34713 Level 3 Est. Patient 15:03:36 CDT Harinder Hernandez [facility] CPT-21979 Level 3 Est. Patient 15:03:20 CDT Harinder Cr [facility] CPT-18899 Level 3 Est. Patient 12:14:34 CDT Harinder Hernandez [facility] CPT-62977 Level 3 Est. Patient 13:47:15 CDT Harinder Cr [facility] CPT-08343 Level 3 Est. Patient 14:08:24 CDT Harinder Hernandez [facility] CPT-21741 Level 3 Est. Patient 10:07:15 CDT Harinder Cr [facility] CPT-84845 Level 3 Est. Patient 10:06:59 CDT Harinder Hernandez [facility] CPT-20725 Level 3 Est. Patient 15:53:29 CDT Jae Morgan [facility] CPT-42776 Level 3 Est. Patient 17:19:04 CDT Harinder Hernandez [facility] CPT-57094 Level 3 Est. Patient 11:13:01 CDT Harinder Hernandez [facility] CPT-81047 Level 3 Est. Patient 09:03:58 CDT Harinder Hernandez [facility] CPT-99189 Level 3 Est. Patient 14:46:45 [employer] Harinder Hernandez [facility] CPT-82239 Level 3 Est. Patient 09:35:49 [employer] Harinder Hernandez [facility] CPT-35919 Level 3 Est. Patient 09:29:37 [employer] Harinder Hernandez [facility] CPT-44592 Level 3 Est. Patient 15:51:07 CDT Harinder Hernandez [facility] CPT-29898 Level 3 Est. Patient 18:13:13 CDT Harinder Cr [facility] CPT-08055 Level 3 Est. Patient 10:44:19 CDT Harinder Cr [facility] CPT-79433 Level 4 Est. Patient 10:07:19 [employer] Harinder Cr [facility] CPT-47959 Level 3 Est. Patient 15:59:32 [employer] Harinder Cr [facility] Procedures Code Procedure Name Date Entry Date Standard Description CPT-04220 Port a cath flush 12:00:13 [employer] CPT-TCMM Transitional Care Mgmt-Moderate 11:20:16 [employer] CPT-82535 First Vx - Ix admin for Medicare patients 17:35:15 CDT CPT-06030 Fluzone Preservative Free Intramuscular Suspension 17:35 :15 CDT CPT-21732 Microalbumin - LAB USE ONLY 11:52:05 CDT CPT-TCMM Transitional Care Mgmt-Moderate 11:33:57 CDT CPT-79000 No Charge Offi Visit 14:11:29 CDT CPT-20901 Magnesium - LAB USE ONLY 10:45:44 CDT CPT-33707 Lipid - LAB USE ONLY 10:45:44 CDT CPT-35724 CBC - LAB USE ONLY 10:45:44 CDT CPT-44500 Venipuncture Draw Fee 10:45:43 CDT CPT-53256 Venipuncture Draw Fee 18:21:27 CDT CPT-JTINJ Asp/Joint Injection 18:38:04 CDT CPT-66101 Immunization Each Additional Inj 17:38:04 CDT CPT-27171 Immunization Single Admin 17:38:04 CDT CPT-70556 Prevnar 13 17:38:04 CDT CPT-65651 Fluzone Quadrivalent preservative free (>=3yrs.) 17:38: 04 CDT CPT-18261 No Charge Offi Visit 11:14:03 CDT CPT-73957 Chest 2V Frontal and Lat 14:00:18 CDT CPT-OV Office Visit 16:10:28 CDT CPT-JTINJ Asp/Joint Injection 09:03:57 CDT CPT-Cryo Cryotherapy 09:35:49 [employer] CPT-JTINJ Asp/Joint Injection 09:34:45 [employer] CPT-J2930 Solu Medrol 125 mg (Methyl Prednisolone Sodium Succinate) 20:37:27 CDT CPT-90047 Abx/Therapy Injection 20:37:27 CDT CPT-37582 Port a cath flush 08:15:51 CDT CPT-08155 Port a cath flush 09:54:16 T CPT-15255 Port a cath flush 09:38:02 CDT CPT-86129 Port a cath flush 11:00:27 [facility]
--- OUTSIDE RECORDS SUMMARY | 2017-12-29 01:18 | XMS REPORT | Clinical Summary ---
Author Author Admin, QIE Organization [facility] Address Unknown Phone Unavailable Allergies, Adverse [...] DO 10/02 Clostridium difficile colitis ICD-008.45 Inactive Harindre Hernandez DO Abdominal pain, right lower quadrant [...] TAB 1 tablet by mouth daily SPIRONOLACTONE [id number] Prince Pimentel Active POTASSIUM CHLORIDE CR 10 MEQ CPCR 1 capsule BID POTASSIUM CHLORIDE 18083372285 Prince Mccain Active FLUOXETINE HCL 10 MG ORAL CAPS 1 po qd for depression/anxiety FLUOXETINE HCL 46897311408 Active Harinder Hernandez DO Active VOLTAREN 1 % GEL apply q 6-8 hour to left arm as needed for pain DICLOFENAC SODIUM 06903061908 Prince Hernandez DO Active LASIX 20 MG TAB 1 tablet by mouth every morning FUROSEMIDE 85888630097 Prince Mccain Active POTASSIUM CHLORIDE 20 MEQ ORAL PACK 1 tab po BID POTASSIUM CHLORIDE 99370614366 Prince Mccain Active ALBUTEROL SULFATE 0.083 % NEBU SOLN 1 vial neb q 4hrs for severe asthma. 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 FLUTICASONE PROPIONATE HFA 13628501147 Active Harinder Hernandez DO Active EPIPEN 2-BRUNA 0.3 MG/0.3ML INJ SOAJ 1 INJ NEEDED EPINEPHRINE 61177774217 Active Harinder Hernandez DO Active PREDNISONE 20 MG TAB 1 tab twice daily for 3 day, then one daily for three days PREDNISONE 13729189626 No Longer Active Harinder Hernandez DO Active PREDNISONE 20 MG TAB 1 tablet twice daily for 2 days, then 1 tablet once daily for 2 days PREDNISONE 31617110548 No Longer Active Harinder Hernandez DO Active ASMANEX 120 METERED DOSES 220 MCG/INH INH AEPB 2 puffs orally twice daily MOMETASONE FUROATE 55981633314 Active Jeri Sosa LPN Active TOPIRAMATE 25 MG TABS 1 tab po BID TOPIRAMATE 59480907644 No Longer Active Nettie Newberry APRN Active AMLODIPINE BESYLATE 5 MG ORAL TABS Take 1 tab po daily AMLODIPINE BESYLATE 70634427035 No Longer Active Nettie Newberry APRN Active MECLIZINE HCL 25 MG TAB 1 tablet three times daily for 3 days, then 1/2 tab three times daily for 3 days. MECLIZINE HCL 96212239670 No Longer Active Nettie Newberry APRN Active AMITRIPTYLINE HCL 25 MG ORAL TABS 1 q hs prn AMITRIPTYLINE HCL 30457633015 No Longer Active Nettie Newberry APRN Active DILAUDID 2 MG ORAL TABS Take 1/2 tab po every 4 hours as needed for pain 2014 HYDROMORPHONE HCL 95991304949 No Longer Active Nettie Newberry APRN Active CLOPIDOGREL BISULFATE 75 MG ORAL TABS 1 tab by mouth once daily CLOPIDOGREL BISULFATE 03381079643 Active Harinder Hernandez DO Active ATORVASTATIN CALCIUM 10 MG ORAL TABS 1 at bedtime ATORVASTATIN CALCIUM 11801992686 Active Tawnya Pardo MA Active LOVASTATIN 40 MG ORAL TABS Take 1 tab po every hs LOVASTATIN 36595457863 No Longer Active Harinder Hernandez DO Active PREDNISONE 20 MG TAB 2 tabs daily for 4 days, 1 tab daily for 4 days, 1/2 tab daily for 4 days PREDNISONE 30665410979 No Longer Active Harinder Hernandez DO Active LEVAQUIN 500 MG ORAL TABS Take 1 tab po daily x 8 days LEVOFLOXACIN 48359195898 No Longer Active Harinder Hernandez DO Active VENTOLIN HFA 108 (90 BASE) MCG/ACT AERS 2 -4 puffs four times a day PRN 2013 ALBUTEROL SULFATE 06277323355 No Longer Active Jeri Sosa LPN Active ACEBUTOLOL HCL 200 MG CAPS 1 cap in the morning and 2 caps in the evening ACEBUTOLOL HCL 27798758547 No Longer Active Harinder Hernandez DO Active CEFDINIR 300 MG ORAL CAPS take 1 cap po bid x 10 days CEFDINIR 90701176778 No Longer Active Harinder Hernandez DO Active LOVASTATIN 40 MG TABS 1 pill by mouth nightly for cholesterol LOVASTATIN 96475052684 No Longer Active Nettie Newberry APRN Active NITROSTAT 0.4 MG SUBL 1 tab under tongueas needed for chest pain ( may take 3 total, 5 min apart, then call 911) NITROGLYCERIN 37442738087 No Longer Active Nettie Newberry MAHENDRA Active POTASSIUM CHLORIDE CR 10 MEQ CPCR 1 capsule by mouth daily 02/14 POTASSIUM CHLORIDE 13988873767 No Longer Active Nettie Newberry MAHENDRA Active TESSALON PERLES 100 MG CAP 1 to 2 tablets by mouth 3 times daily as needed for cough BENZONATATE 61127334521 No Longer Active Nettie Newberry MAHENDRA Active THEOPHYLLINE ER 200 MG ORAL [id number] Take 1 tab every 12 hours THEOPHYLLINE 59732369299 Active Harinder Hernandez DO Active PREDNISONE 20 MG TAB 2 po qd x 5 days PREDNISONE 25606508646 No Longer Active Jae Morgan MD Active AZITHROMYCIN 250 MG TABS 2 po qd x 1 day, then 1 po qd x 4 days AZITHROMYCIN 49625647499 No Longer Active Jae Morgan MD Active PREDNISONE 20 MG TAB 1 tab twice daily for 3 day, then one daily for three days PREDNISONE 04052046579 No Longer Active Jae Morgan MD Active SINGULAIR 10 MG TABS 1 pill by mouth every evening for breathing. 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 NEURONTIN 300 MG CAP 1 cap by mouth three times daily for restless leg 06/22 GABAPENTIN 27841080521 No Longer Active Harinder Hernandez DO Active BENZONATATE 100 MG CAPS 1 cap po TID PRN BENZONATATE 68189683782 No Longer Active Harinder Hernandez DO Active MONTELUKAST SODIUM 10 MG TABS 1 tab po in the evening MONTELUKAST SODIUM 80133407469 No Longer Active Harinder Hernandez DO Active MUPIROCIN 2 % OINT apply to affected area BID x 14 days MUPIROCIN 84859334861 No Longer Active Harinder Hernandez DO Active TYLENOL EXTRA STRENGTH 500 MG TABS as needed ACETAMINOPHEN 59995412861 No Longer Active Harinder Hernandez DO Active PREDNISONE 10 MG TABS 1 tab po daily PREDNISONE 30102671358 No Longer Active Harinder Hernandez DO Active PREDNISONE 20 MG TAB 2 tabs daily for 4 days, 1 tab daily for 4 days, 1/2 tab daily for 4 days PREDNISONE 81672529644 No Longer Active Harinder Hernandez DO Active AZITHROMYCIN 250 MG TABS 2 po qd x 1 day, then 1 po qd x 4 days AZITHROMYCIN 40484303556 No Longer Active Harinder Hernandez DO Active PREDNISONE 20 MG TAB 3 tabs today, then 1 tab twice daily for 3 day, then one daily for three days PREDNISONE 64690374663 No Longer Active Harinder Hernandez DO Active NIFEDIAC CC 30 MG [id number] 1 tablet daily for raynaud's syndrome NIFEDIPINE 20363525167 No Longer Active Tawnya Pardo MA Active AMBIEN 10 MG TAB 1/2 tab by mouth at bedtime as needed for sleep ZOLPIDEM TARTRATE 06273025584 Active Harinder Hernandez DO Active CLONAZEPAM 1 MG TABS 1 tablet at bedtime for insomnia and restless legs 09/14 CLONAZEPAM 81571125278 Active Harinder Hernandez DO Active CLONAZEPAM 0.5 MG TABS 1 tab po daily CLONAZEPAM 29856443503 No Longer Active Harinder Hernandez DO Active PREDNISONE 10 MG TAB 1 tablet daily for COPD PREDNISONE 58230615676 Active Harinder Hernandez DO Active PROAIR HFA 108 (90 BASE) MCG/ACT AERS 2 puffs four times a day as needed 2012 ALBUTEROL SULFATE 43982087939 Active Harinder Hernandez DO Active FLOVENT HFA 110 MCG/ACT AERO 2 puffs inhaled b.i.d. FLUTICASONE PROPIONATE HFA 93165503211 Active Kortney Mccain Active ACIPHEX 20 MG TBEC 1 tab po daily RABEPRAZOLE SODIUM 78125400813 Active Kaylah Newberry Active CLONAZEPAM 0.5 MG TABS 1 tab po daily CLONAZEPAM 0.5 MG TABS 142580 CLONAZEPAM Inactive PREDNISONE 20 MG TAB 3 tabs today, then 1 tab twice daily for 3 day, then one daily for three days PREDNISONE 20 MG TAB 589071 PREDNISONE Inactive PREDNISONE 20 MG TAB 2 tabs daily for 4 days, 1 tab daily for 4 days, 1/2 tab daily for 4 days PREDNISONE 20 MG TAB 446548 PREDNISONE Inactive PREDNISONE 10 MG TABS 1 tab po daily PREDNISONE 10 MG TABS 869578 PREDNISONE Inactive TYLENOL EXTRA STRENGTH 500 MG TABS as needed TYLENOL EXTRA STRENGTH 500 MG TABS 410930 ACETAMINOPHEN Inactive MUPIROCIN 2 % OINT apply to affected area BID x 14 days MUPIROCIN 2 % OINT 421992 MUPIROCIN Inactive MONTELUKAST SODIUM 10 MG TABS 1 tab po in the evening MONTELUKAST SODIUM 10 MG TABS 20010818 MONTELUKAST SODIUM Inactive BENZONATATE 100 MG CAPS 1 cap po TID PRN BENZONATATE 100 MG CAPS 766657 BENZONATATE Inactive NEURONTIN 300 MG CAP 1 cap by mouth three times daily for restless leg 06/22 NEURONTIN 300 MG CAP 935755 GABAPENTIN Inactive LEVAQUIN 500 MG TAB 1 tablet by mouth daily LEVAQUIN 500 MG TAB 19980216 LEVOFLOXACIN Inactive PREDNISONE 20 MG TAB 1 TID x 2 days, then 1 BID x 3 days, then 1 Daily x 3 days, then stop PREDNISONE 20 MG TAB 315076 PREDNISONE Inactive POTASSIUM CHLORIDE ER 10 MEQ CR-TABS take 1 tab po daily POTASSIUM CHLORIDE ER 10 MEQ CR-TABS POTASSIUM CHLORIDE Inactive PREDNISONE 20 MG TAB 1 tab twice daily for 3 day, then one daily for three days PREDNISONE 20 MG TAB 772223 PREDNISONE Inactive TESSALON PERLES 100 MG CAP 1 to 2 tablets by mouth 3 times daily as needed for cough TESSALON PERLES 100 MG CAP 974590 BENZONATATE Inactive POTASSIUM CHLORIDE CR 10 MEQ CPCR 1 capsule by mouth daily 02/14 POTASSIUM CHLORIDE CR 10 MEQ CPCR POTASSIUM CHLORIDE Inactive NITROSTAT 0.4 MG SUBL 1 tab under tongueas needed for chest pain ( may take 3 total, 5 min apart, then call 911) NITROSTAT 0.4 MG SUBL 802132 NITROGLYCERIN Inactive LOVASTATIN 40 MG TABS 1 pill by mouth nightly for cholesterol LOVASTATIN 40 MG TABS 821762 LOVASTATIN Inactive CEFDINIR 300 MG ORAL CAPS take 1 cap po bid x 10 days CEFDINIR 300 MG ORAL CAPS 831743 CEFDINIR Inactive ACEBUTOLOL HCL 200 MG CAPS 1 cap in the morning and 2 caps in the evening ACEBUTOLOL HCL 200 MG CAPS 514261 ACEBUTOLOL HCL Inactive VENTOLIN HFA 108 (90 [...] for 4 days PREDNISONE 20 MG TAB 930418 PREDNISONE Inactive LOVASTATIN 40 MG ORAL TABS Take 1 tab po every hs LOVASTATIN 40 MG ORAL TABS 010340 LOVASTATIN Inactive DILAUDID 2 MG ORAL TABS Take 1/2 tab po every 4 hours as needed for pain 2014 DILAUDID 2 MG ORAL TABS 285289 HYDROMORPHONE HCL Inactive AMITRIPTYLINE HCL 25 MG ORAL TABS 1 q hs prn AMITRIPTYLINE HCL 25 MG ORAL TABS 585015 AMITRIPTYLINE HCL Inactive MECLIZINE HCL 25 MG TAB 1 tablet three times daily for 3 days, then 1/2 tab three times daily for 3 days. MECLIZINE HCL 25 MG TAB 737582 MECLIZINE HCL Inactive AMLODIPINE BESYLATE 5 MG ORAL TABS Take 1 tab po daily AMLODIPINE BESYLATE 5 MG ORAL TABS 225331 AMLODIPINE BESYLATE Inactive TOPIRAMATE 25 MG TABS 1 tab po BID TOPIRAMATE 25 MG TABS 899573 TOPIRAMATE Inactive PREDNISONE 20 MG TAB 1 tablet twice daily for 2 days, then 1 tablet once daily for 2 days PREDNISONE 20 MG TAB 216987 PREDNISONE Inactive PREDNISONE 20 MG TAB 1 tab twice daily for 3 day, then one daily for three days PREDNISONE 20 MG TAB 490311 PREDNISONE Inactive NIFEDIPINE ER 30 MG ORAL [id number] 1 daily NIFEDIPINE ER 30 MG ORAL [id number] NIFEDIPINE Inactive AMLODIPINE BESYLATE 5 MG TABS 1 tablet by mouth daily AMLODIPINE BESYLATE 5 MG TABS 752083 AMLODIPINE BESYLATE Inactive AZITHROMYCIN 250 MG TABS 2 po qd x 1 day, then 1 po qd x 4 days AZITHROMYCIN 250 MG TABS 9345844 AZITHROMYCIN Inactive AZITHROMYCIN 250 MG TABS 2 po qd x 1 day, then 1 po qd x 4 days AZITHROMYCIN 250 MG TABS 2927810 AZITHROMYCIN Inactive PREDNISONE 20 MG TAB 2 po qd x 5 days PREDNISONE 20 MG TAB 000265 PREDNISONE Inactive Vital Signs Date Name Value [...] Panel - Chemistry sodium, serum 137 mmol/L 414-904 3671/01/03 potassium, serum 3.4 mmol/L 3.5-5.2 chloride, serum 102 mmol/L 98-107 carbon dioxide, venous blood 29.2 mmol/L 21.0-32.0 blood glucose 87 mg/dL 65-110 calcium, serum 8.5 mg/dL 8.5-10.1 urea nitrogen, blood 8 mg/dL 7-18 creatinine, serum 0.82 mg/dL 0.55-1.30 sodium, serum 140 mmol/L 483-015 4055/07/13 potassium, serum 3.2 mmol/L 3.5-5.2 chloride, serum [...] ... - Chemistry sodium, serum 141 mmol/L 255-574 9520/08/07 carbon dioxide, venous blood 34.0 mmol/L 21.0-32.0 [...] 0-19 Encounters Code Encounter Date Provider Facility CPT-40416 Level 4 Est. Patient 14:45:25 CDT Harinder Cr [facility] CPT-04691 Level 4 Est. Patient 09:15:13 CDT Harinder Cr [facility] CPT-31481 Level 3 Est. Patient 11:51:58 CDT Harinder W David [facility] CPT-47267 Level 3 Est. Patient 11:30:05 CDT Harinder Hernandez [facility] CPT-47240 Level 4 Est. Patient 10:19:23 CDT Harinder Hernandez [facility] CPT-29133 Level 3 Est. Patient 09:58:58 CDT Harinder Cr [facility] CPT-53710 Level 3 Est. Patient 12:37:21 CDT Harinder Hernandez [facility] CPT-58927 Level 3 Est. Patient 18:37:17 CDT Harinder Cr [facility] CPT-80538 Level 4 Est. Patient 11:15:54 CDT Nettie King MAHENDRA [facility] CPT-20150 Level 3 Est. Patient 16:42:24 CDT Harinder Cr [facility] CPT-90690 Level 3 Est. Patient 15:03:36 CDT Harinder Hernandez [facility] CPT-26855 Level 3 Est. Patient 15:03:20 CDT Harinder Cr [facility] CPT-22512 Level 3 Est. Patient 12:14:34 CDT Harinder Hernandez [facility] CPT-77323 Level 3 Est. Patient 13:47:15 CDT Harinder Cr [facility] CPT-84422 Level 3 Est. Patient 14:08:24 CDT Harinder Hernandez [facility] CPT-61665 Level 3 Est. Patient 10:07:15 CDT Harinder Cr [facility] CPT-41578 Level 3 Est. Patient 10:06:59 CDT Harinder Cr [facility] CPT-06552 Level 3 Est. Patient 15:53:29 CDT Jae Morgan [facility] CPT-82955 Level 3 Est. Patient 17:19:04 CDT Harinder W David [facility] CPT-93918 Level 3 Est. Patient 11:13:01 CDT Harinder Hernandez [facility] CPT-80110 Level 3 Est. Patient 09:03:58 CDT Harinder Hernandez [facility] CPT-71623 Level 3 Est. Patient 14:46:45 [employer] Harinder Hernandez [facility] CPT-12664 Level 3 Est. Patient 09:35:49 [employer] Harinder Hernandez [facility] CPT-61161 Level 3 Est. Patient 09:29:37 [employer] Harinder Hernandez [facility] CPT-93595 Level 3 Est. Patient 15:51:07 CDT Harinder Hernandez [facility] CPT-27674 Level 3 Est. Patient 18:13:13 CDT Harinder Hernandez [facility] CPT-64509 Level 3 Est. Patient 10:44:19 CDT Harinder Hernandez [facility] CPT-96424 Level 4 Est. Patient 10:07:19 [employer] Harinder Hernandez [facility] CPT-35769 Level 3 Est. Patient 15:59:32 [employer] Harinder Cr [facility] Procedures Code Procedure Name Date Entry Date Standard Description CPT-83974 Abd compl w upright - XRAY USE ONLY 14:48:09 CDT 02/18 CPT-82045 Port a cath flush 13:46:05 CDT CPT-86481 Hip, complete, 2-3 views - XRAY USE ONLY 10:28:40 CDT CPT-98251 BMP - LAB USE ONLY 16:45:09 [employer] CPT-00395 Port a cath flush 12:00:13 [employer] CPT-TCMM Transitional Care Mgmt-Moderate 11:20:16 [employer] CPT-92122 First Vx - Ix admin for Medicare patients 17:35:15 CDT CPT-87100 Fluzone Preservative Free Intramuscular Suspension 17:35 :15 CDT CPT-68152 Microalbumin - LAB USE ONLY 11:52:05 CDT CPT-TCMM Transitional Care Mgmt-Moderate 11:33:57 CDT CPT-17551 No Charge Offi Visit 14:11:29 CDT CPT-72969 Magnesium - LAB USE ONLY 10:45:44 CDT CPT-96969 Lipid - LAB USE ONLY 10:45:44 CDT CPT-00440 CBC - LAB USE ONLY 10:45:44 CDT CPT-49736 Venipuncture Draw Fee 10:45:43 CDT CPT-03415 Venipuncture Draw Fee 18:21:27 CDT CPT-JTINJ Asp/Joint Injection 18:38:04 CDT CPT-84686 Immunization Each Additional Inj 17:38:04 CDT CPT-57449 Immunization Single Admin 17:38:04 CDT CPT-66178 Prevnar 13 17:38:04 CDT CPT-84405 Fluzone Quadrivalent preservative free (>=3yrs.) 17:38: 04 CDT CPT-49177 No Charge Offi Visit 11:14:03 CDT CPT-93156 Chest 2V Frontal and Lat 14:00:18 CDT CPT-OV Office Visit 16:10:28 CDT CPT-JTINJ Asp/Joint Injection 09:03:57 CDT CPT-Cryo Cryotherapy 09:35:49 F[employer] CPT-JTINJ Asp/Joint Injection 09:34:45 [employer] CPT-J2930 Solu Medrol 125 mg (Methyl Prednisolone Sodium Succinate) 20:37:27 CDT CPT-59674 Abx/Therapy Injection 20:37:27 CDT CPT-10426 Port a cath flush 08:15:51 CDT CPT-56110 Port a cath flush 09:54:16 CDT CPT-77172 Port a cath flush 09:38:02 CDT CPT-87649 Port a cath flush 11:00:27 F[employer]TER
[2017-12-29] MEDS ORDERED: NS IV 1000 ML 1,000 ML IV SCH (01:20)
--- OUTSIDE RECORDS SUMMARY | 2017-12-29 01:20 | XMS REPORT | Clinical Summary ---
Author Author Admin, QIE Organization [facility] [employer] Address Unknown Phone Unavailable Allergies, Adverse Reactions, [...] [address] Active Harinder Henrandez DO Chronic airway obstruction, not elsewhere classified [...] tab SL q5min PRN chest pain NITROGLYCERIN [id number] Active Meenu Alejo LPN Active THEOPHYLLINE ER 300 MG ORAL TABLET EXTENDED RELEASE 12 HOUR 1 po BID THEOPHYLLINE 36349563462 Active Kortney Mccain Active POTASSIUM CHLORIDE ER 20 MEQ ORAL TABLET EXTENDED RELEASE 1 po q day POTASSIUM CHLORIDE 20527049999 Active Kortney Mccain Active POTASSIUM CHLORIDE 20 MEQ ORAL PACKET 1 tab po q day POTASSIUM CHLORIDE 93576853739 No Longer Active Kortney Mccain Active POTASSIUM CHLORIDE ER 10 MEQ ORAL CAPSULE EXTENDED RELEASE 1 capsule BID 2016 POTASSIUM CHLORIDE 97697086585 No Longer Active Kortney Mccain Active LASIX 20 MG ORAL TABLET 1 tablet by mouth every morning FUROSEMIDE 03423161312 No Longer Active Kortney Mccain Active SPIRONOLACTONE 25 MG ORAL TABLET 1 tablet by mouth daily SPIRONOLACTONE 28204781223 Active Kortney Mccain Active FLUOXETINE HCL 10 MG ORAL CAPSULE 1 po qd for depression/anxiety FLUOXETINE HCL 99389031004 Active Harinder Hernandez DO Active VOLTAREN 1 % TRANSDERMAL GEL apply q 6-8 hour to left arm as needed for pain DICLOFENAC SODIUM 86684683100 Active Kortney Mccain Active ALBUTEROL SULFATE (2.5 MG/3ML) 0.083% INHALATION NEBULIZATION SOLUTION 1 vial neb q 4hrs for severe asthma. 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 NIFEDIPINE 10311035585 Active Kortney Mccain Active AMLODIPINE BESYLATE 5 MG ORAL TABLET 1 tablet by mouth daily 2016 AMLODIPINE BESYLATE 54523415925 No Longer Active Harinder Hernandez DO Active TOPAMAX 25 MG ORAL TABLET 1 tab po BID TOPIRAMATE 95554821687 Active Kortney Mccain Active FLUTICASONE PROPIONATE 50 MCG/ACT NASAL SUSPENSION 2 sprays per nostril daily PRN Allergies FLUTICASONE PROPIONATE 59496489207 Active Kortney Mccain Active NIFEDIPINE ER 30 MG ORAL TABLET EXTENDED RELEASE 24 HOUR 1 daily NIFEDIPINE 35042562405 No Longer Active Harinder Hernandez DO Active FLOVENT HFA 110 MCG/ACT INHALATION AEROSOL 2 puffs inhaled b.i.d. FLUTICASONE PROPIONATE HFA 72971256429 Active Harinder Hernandez DO Active EPIPEN 2-BRUNA 0.3 MG/0.3ML INJECTION SOLUTION AUTO-INJECTOR 1 INJ NEEDED EPINEPHRINE 76944569389 Active Kortney Mccain Active PREDNISONE 20 MG ORAL TABLET 1 tab twice daily for 3 day, then one daily for three days PREDNISONE 17940071161 No Longer Active Harinder Hernandez DO Active PREDNISONE 20 MG ORAL TABLET 1 tablet twice daily for 2 days, then 1 tablet once daily for 2 days PREDNISONE 45151226116 No Longer Active Harinder Hernandez DO Active ASMANEX 120 METERED DOSES 220 MCG/INH INHALATION AEROSOL POWDER BREATH ACTIVATED 2 puffs orally twice daily MOMETASONE FUROATE 00768953801 Active Jeri Sosa LPN Active TOPIRAMATE 25 MG ORAL TABLET 1 tab po BID TOPIRAMATE 74155369609 No Longer Active Nettie Newberry APRN Active AMLODIPINE BESYLATE 5 MG ORAL TABLET Take 1 tab po daily AMLODIPINE BESYLATE 06664118601 No Longer Active Nettie Newberry APRN Active MECLIZINE HCL 25 MG ORAL TABLET 1 tablet three times daily for 3 days, then 1/ 2 tab three times daily for 3 days. MECLIZINE HCL 42702076712 No Longer Active Nettie Newberry APRN Active AMITRIPTYLINE HCL 25 MG ORAL TABLET 1 q hs prn AMITRIPTYLINE HCL 40237603366 No Longer Active Nettie Newberry APRN Active DILAUDID 2 MG ORAL TABLET Take 1/2 tab po every 4 hours as needed for pain HYDROMORPHONE HCL 18811952234 No Longer Active Nettie Newberry APRN Active CLOPIDOGREL BISULFATE 75 MG ORAL TABLET 1 tab by mouth once daily CLOPIDOGREL BISULFATE 12553999872 Active Meenu Alejo LPN Active ATORVASTATIN CALCIUM 10 MG ORAL TABLET 1 at bedtime ATORVASTATIN CALCIUM 55209893242 Active Kortney Mccain Active LOVASTATIN 40 MG ORAL TABLET Take 1 tab po every hs LOVASTATIN 76381586301 No Longer Active Harinder Hernandez DO Active PREDNISONE 20 MG ORAL TABLET 2 tabs daily for 4 days, 1 tab daily for 4 days, 1/2 tab daily for 4 days PREDNISONE 81456180862 No Longer Active Harinder Hernandez DO Active LEVAQUIN 500 MG ORAL TABLET Take 1 tab po daily x 8 days LEVOFLOXACIN 71730073090 No Longer Active Harinder Hernandez DO Active VENTOLIN HFA 108 (90 Base) MCG/ACT INHALATION AEROSOL SOLUTION 2 -4 puffs four times a day PRN ALBUTEROL SULFATE 83924000455 No Longer Active Jeri Sosa LPN Active ACEBUTOLOL HCL 200 MG ORAL CAPSULE 1 cap in the morning and 2 caps in the evening ACEBUTOLOL HCL 40704536538 No Longer Active Harinder Hernandez DO Active CEFDINIR 300 MG ORAL CAPSULE take 1 cap po bid x 10 days CEFDINIR 47384488540 No Longer Active Harinder Hernandez DO Active LOVASTATIN 40 MG ORAL TABLET 1 pill by mouth nightly for cholesterol LOVASTATIN 29372237735 No Longer Active Nettie Newberry APRN Active NITROSTAT 0.4 MG SUBLINGUAL TABLET SUBLINGUAL 1 tab under tongueas needed for chest pain ( may take 3 total, 5 min apart, then call 911) NITROGLYCERIN 28431211988 No Longer Active Nettie Newberry APRN Active POTASSIUM CHLORIDE ER 10 MEQ ORAL CAPSULE EXTENDED RELEASE 1 capsule by mouth daily POTASSIUM CHLORIDE 74321238415 No Longer Active Nettie Newberry APRN Active TESSALON PERLES 100 MG ORAL CAPSULE 1 to 2 tablets by mouth 3 times daily as needed for cough BENZONATATE 29182872143 No Longer Active Nettie Newberry APRN Active PREDNISONE 20 MG ORAL TABLET 2 po qd x 5 days PREDNISONE 37091833035 No Longer Active Jae Morgan MD Active AZITHROMYCIN 250 MG ORAL TABLET 2 po qd x 1 day, then 1 po qd x 4 days 12/30 AZITHROMYCIN 56267378976 No Longer Active Jae Morgan MD Active PREDNISONE 20 MG ORAL TABLET 1 tab twice daily for 3 day, then one daily for three days PREDNISONE 26461153677 No Longer Active Jae Morgan MD Active SINGULAIR 10 MG ORAL TABLET 1 pill by mouth every evening for breathing. 2014 MONTELUKAST SODIUM 04375384351 Active Meenu Alejo LPN Active TYLENOL 325 MG ORAL TABLET 3 by mouth q4h as needed ACETAMINOPHEN 63110906049 Active Harinder Hernandez DO Active POTASSIUM CHLORIDE ER 10 MEQ ORAL TABLET EXTENDED RELEASE take 1 tab po daily POTASSIUM CHLORIDE 40432707636 No Longer Active Harinder Hernandez DO Active PREDNISONE 20 MG ORAL TABLET 1 TID x 2 days, then 1 BID x 3 days, then 1 Daily x 3 days, then stop PREDNISONE 76618792148 No Longer Active John Montemayor APRN Active LEVAQUIN 500 MG ORAL TABLET 1 tablet by mouth daily LEVOFLOXACIN 24684783419 No Longer Active John Montemayor APRN Active NEURONTIN 300 MG ORAL CAPSULE 1 cap by mouth three times daily for restless leg GABAPENTIN 72762810143 No Longer Active Harinder Hernandez DO Active BENZONATATE 100 MG ORAL CAPSULE 1 cap po TID PRN BENZONATATE 81693529093 No Longer Active Harinder Hernandez DO Active MONTELUKAST SODIUM 10 MG ORAL TABLET 1 tab po in the evening 2014 MONTELUKAST SODIUM 31958935368 No Longer Active Harinder Hernandez DO Active MUPIROCIN 2 % EXTERNAL OINTMENT apply to affected area BID x 14 days MUPIROCIN 19993172540 No Longer Active Harinder Hernandez DO Active TYLENOL EXTRA STRENGTH 500 MG ORAL TABLET as needed ACETAMINOPHEN 71982764561 No Longer Active Harinder Hernandez DO Active PREDNISONE 10 MG ORAL TABLET 1 tab po daily PREDNISONE 26730892131 No Longer Active Harinder Hernandez DO Active PREDNISONE 20 MG ORAL TABLET 2 tabs daily for 4 days, 1 tab daily for 4 days, 1/2 tab daily for 4 days PREDNISONE 75111867787 No Longer Active Harinder Hernandez DO Active AZITHROMYCIN 250 MG ORAL TABLET 2 po qd x 1 day, then 1 po qd x 4 days 04/06 AZITHROMYCIN 08017283212 No Longer Active Harinder Hernandez DO Active PREDNISONE 20 MG ORAL TABLET 3 tabs today, then 1 tab twice daily for 3 day, then one daily for three days PREDNISONE 43304676560 No Longer Active Harinder Hernandez DO Active NIFEDIAC CC 30 MG ORAL TABLET EXTENDED RELEASE 24 HOUR 1 tablet daily for raynaud's syndrome NIFEDIPINE 29076087548 No Longer Active Tawnya Pardo MA Active AMBIEN 10 MG ORAL TABLET 1/2 tab by mouth at bedtime as needed for sleep 2013 ZOLPIDEM TARTRATE 04596955421 Active Meenu Alejo LPN Active CLONAZEPAM 1 MG ORAL TABLET 1 tablet at bedtime for insomnia and restless legs CLONAZEPAM 16748933818 Active Harinder Hernandez DO Active CLONAZEPAM 0.5 MG ORAL TABLET 1 tab po daily CLONAZEPAM 05953426914 No Longer Active Harinder Hernandez DO Active PREDNISONE 10 MG ORAL TABLET 1 tablet daily for COPD PREDNISONE 27476987912 Active Kortney Mccain Active PROAIR HFA 108 (90 Base) MCG/ACT INHALATION AEROSOL SOLUTION 2 puffs four times a day as needed ALBUTEROL SULFATE 14079453210 Active Harinder Hernandez DO Active FLOVENT HFA 110 MCG/ACT INHALATION AEROSOL 2 puffs inhaled b.i.d. FLUTICASONE PROPIONATE HFA 83677809898 Active Kortney Mccain Active ACIPHEX 20 MG ORAL TABLET DELAYED RELEASE 1 tab po daily RABEPRAZOLE SODIUM 76186529828 Active Kaylah Newberry Active CLONAZEPAM 0.5 MG ORAL TABLET 1 tab po daily CLONAZEPAM 0.5 MG ORAL TABLET 558932 CLONAZEPAM Inactive PREDNISONE 20 MG ORAL TABLET 3 tabs today, then 1 tab twice daily for 3 day, then one daily for three days PREDNISONE 20 MG ORAL TABLET 683347 PREDNISONE Inactive PREDNISONE 20 MG ORAL TABLET 2 tabs daily for 4 days, 1 tab daily for 4 days, 1/2 tab daily for 4 days PREDNISONE 20 MG ORAL TABLET 446490 PREDNISONE Inactive PREDNISONE 10 MG ORAL TABLET 1 tab po daily PREDNISONE 10 MG ORAL TABLET 926336 PREDNISONE Inactive TYLENOL EXTRA STRENGTH 500 MG ORAL TABLET as needed TYLENOL EXTRA STRENGTH 500 MG ORAL TABLET 075084 ACETAMINOPHEN Inactive MUPIROCIN 2 % EXTERNAL OINTMENT apply to affected area BID x 14 days MUPIROCIN 2 % EXTERNAL OINTMENT 235975 MUPIROCIN Inactive MONTELUKAST SODIUM 10 MG ORAL TABLET 1 tab po in the evening 2014 MONTELUKAST SODIUM 10 MG ORAL TABLET 953565 MONTELUKAST SODIUM Inactive BENZONATATE 100 MG ORAL CAPSULE 1 cap po TID PRN BENZONATATE 100 MG ORAL CAPSULE 390795 BENZONATATE Inactive NEURONTIN 300 MG ORAL CAPSULE 1 cap by mouth three times daily for restless leg NEURONTIN 300 MG ORAL CAPSULE 593452 GABAPENTIN Inactive LEVAQUIN 500 MG ORAL TABLET 1 tablet by mouth daily LEVAQUIN 500 MG ORAL TABLET 121879 LEVOFLOXACIN Inactive PREDNISONE 20 MG ORAL TABLET 1 TID x 2 days, then 1 BID x 3 days, then 1 Daily x 3 days, then stop PREDNISONE 20 MG ORAL TABLET 076432 PREDNISONE Inactive POTASSIUM CHLORIDE ER 10 MEQ ORAL TABLET EXTENDED RELEASE take 1 tab po daily POTASSIUM CHLORIDE ER 10 MEQ ORAL TABLET EXTENDED RELEASE POTASSIUM CHLORIDE Inactive PREDNISONE 20 MG ORAL TABLET 1 tab twice daily for 3 day, then one daily for three days PREDNISONE 20 MG ORAL TABLET 353071 PREDNISONE Inactive TESSALON PERLES 100 MG ORAL CAPSULE 1 to 2 tablets by mouth 3 times daily as needed for cough TESSALON PERLES 100 MG ORAL CAPSULE 032844 BENZONATATE Inactive POTASSIUM CHLORIDE ER 10 MEQ ORAL CAPSULE EXTENDED RELEASE 1 capsule by mouth daily POTASSIUM CHLORIDE ER 10 MEQ ORAL CAPSULE EXTENDED RELEASE POTASSIUM CHLORIDE Inactive NITROSTAT 0.4 MG SUBLINGUAL TABLET SUBLINGUAL 1 tab under tongueas needed for chest pain ( may take 3 total, 5 min apart, then call 911) NITROSTAT 0.4 MG SUBLINGUAL TABLET SUBLINGUAL 609396 NITROGLYCERIN Inactive LOVASTATIN 40 MG ORAL TABLET 1 pill by mouth nightly for cholesterol LOVASTATIN 40 MG ORAL TABLET 149628 LOVASTATIN Inactive CEFDINIR 300 MG ORAL CAPSULE take 1 cap po bid x 10 days CEFDINIR 300 MG ORAL CAPSULE 234987 CEFDINIR Inactive ACEBUTOLOL HCL 200 MG ORAL CAPSULE 1 cap in the morning and 2 caps in the evening ACEBUTOLOL HCL 200 MG ORAL CAPSULE 634456 ACEBUTOLOL HCL Inactive VENTOLIN HFA 108 (90 Base) MCG/ACT INHALATION AEROSOL SOLUTION 2 -4 puffs four times a day PRN VENTOLIN HFA 108 (90 Base) MCG/ ACT INHALATION AEROSOL SOLUTION ALBUTEROL SULFATE Inactive LEVAQUIN 500 MG ORAL TABLET Take 1 tab po daily x 8 days LEVAQUIN 500 MG ORAL TABLET 300226 LEVOFLOXACIN Inactive PREDNISONE 20 MG ORAL TABLET 2 tabs daily for 4 days, 1 tab daily for 4 days, 1/2 tab daily for 4 days PREDNISONE 20 MG ORAL TABLET 469366 PREDNISONE Inactive LOVASTATIN 40 MG ORAL TABLET Take 1 tab po every hs LOVASTATIN 40 MG ORAL TABLET 898696 LOVASTATIN Inactive DILAUDID 2 MG ORAL TABLET Take 1/2 tab po every 4 hours as needed for pain DILAUDID 2 MG ORAL TABLET 900343 HYDROMORPHONE HCL Inactive AMITRIPTYLINE HCL 25 MG ORAL TABLET 1 q hs prn AMITRIPTYLINE HCL 25 MG ORAL TABLET 859745 AMITRIPTYLINE HCL Inactive MECLIZINE HCL 25 MG ORAL TABLET 1 tablet three times daily for 3 days, then 1/ 2 tab three times daily for 3 days. MECLIZINE HCL 25 MG ORAL TABLET 418487 MECLIZINE HCL Inactive AMLODIPINE BESYLATE 5 MG ORAL TABLET Take 1 tab po daily AMLODIPINE BESYLATE 5 MG ORAL TABLET 489866 AMLODIPINE BESYLATE Inactive TOPIRAMATE 25 MG ORAL TABLET 1 tab po BID TOPIRAMATE 25 MG ORAL TABLET 981380 TOPIRAMATE Inactive PREDNISONE 20 MG ORAL TABLET 1 tablet twice daily for 2 days, then 1 tablet once daily for 2 days PREDNISONE 20 MG ORAL TABLET 918787 PREDNISONE Inactive PREDNISONE 20 MG ORAL TABLET 1 tab twice daily for 3 day, then one daily for three days PREDNISONE 20 MG ORAL TABLET 085638 PREDNISONE Inactive NIFEDIPINE ER 30 MG ORAL TABLET EXTENDED RELEASE 24 HOUR 1 daily NIFEDIPINE ER 30 MG ORAL TABLET EXTENDED RELEASE 24 HOUR NIFEDIPINE Inactive AMLODIPINE BESYLATE 5 MG ORAL TABLET 1 tablet by mouth daily 2016 AMLODIPINE BESYLATE 5 MG ORAL TABLET 384247 AMLODIPINE BESYLATE Inactive LASIX 20 MG ORAL TABLET 1 tablet by mouth every morning LASIX 20 MG ORAL TABLET 367076 FUROSEMIDE Inactive POTASSIUM CHLORIDE ER 10 MEQ ORAL CAPSULE EXTENDED RELEASE 1 capsule BID 2016 POTASSIUM CHLORIDE ER 10 MEQ ORAL CAPSULE EXTENDED RELEASE POTASSIUM CHLORIDE Inactive POTASSIUM CHLORIDE 20 MEQ ORAL PACKET 1 tab po q day POTASSIUM CHLORIDE 20 MEQ ORAL PACKET 2771848 POTASSIUM CHLORIDE Inactive AZITHROMYCIN 250 MG ORAL TABLET 2 po qd x 1 day, then 1 po qd x 4 days 04/06 AZITHROMYCIN 250 MG ORAL TABLET 803068 AZITHROMYCIN Inactive AZITHROMYCIN 250 MG ORAL TABLET 2 po qd x 1 day, then 1 po qd x 4 days 12/30 AZITHROMYCIN 250 MG ORAL TABLET 365987 AZITHROMYCIN Inactive PREDNISONE 20 MG ORAL TABLET 2 po qd x 5 days PREDNISONE 20 MG ORAL TABLET 529546 PREDNISONE Inactive Vital Signs Date Name Value [...] Panel - Chemistry sodium, serum 140 mmol/L 281-694 9319/07/13 potassium, serum 3.2 mmol/L 3.5-5.2 chloride, serum 103 mmol/L 98-107 carbon dioxide, venous blood 26.9 mmol/L 21.0-32.0 blood glucose 93 mg/dL 65-110 calcium, serum 9.2 mg/dL 8.5-10.1 urea nitrogen, blood 13 mg/dL 7-18 creatinine, serum 0.84 mg/dL 0.60-1.30 sodium, serum 140 mmol/L 095-017 8656/08/21 potassium, serum 3.8 mmol/L 3.5-5.2 chloride, serum [...] ... - Chemistry sodium, serum 141 mmol/L 449-069 5597/08/07 carbon dioxide, venous blood 34.0 mmol/L 21.0-32.0 [...] 1.40 mg/dL 0.00-1.00 cholesterol, serum 192 mg/dL 473-951 3002/10/19 triglyceride, serum, fasting 71 mg/dL 30-200 HDL cholesterol, serum 72 mg/dL 32-60 LDL cholesterol, serum 106 mg/dL 0-130 Lab Report: THEOPHYLLINE - Toxicology theophylline level, serum 3.1 ug/mL 10.0-20.0 Encounters Code Encounter Date Provider Facility CPT-68000 Level 4 Est. Patient 14:45:25 CDT Harinder Cr [facility] CPT-64994 Level 4 Est. Patient 09:15:13 CDT Harinder Cr [facility] CPT-28310 Level 3 Est. Patient 11:51:58 CDT Harinder Cr [facility] CPT-67936 Level 3 Est. Patient 11:30:05 CDT Harinder Cr [facility] CPT-05023 Level 4 Est. Patient 10:19:23 CDT Harinder Cr [facility] CPT-56105 Level 3 Est. Patient 09:58:58 CDT Harinder Cr [facility] CPT-04579 Level 3 Est. Patient 12:37:21 CDT Harinder Cr [facility] CPT-77519 Level 3 Est. Patient 18:37:17 CDT Harinder Cr [facility] CPT-65530 Level 4 Est. Patient 11:15:54 CDT Nettie Newberry APRN [facility] CPT-16779 Level 3 Est. Patient 16:42:24 CDT Harinder Hernandez [facility] CPT-10863 Level 3 Est. Patient 15:03:36 CDT Harinder Hernandez [facility] CPT-80872 Level 3 Est. Patient 15:03:20 CDT Harinder Hernandez [facility] CPT-06126 Level 3 Est. Patient 12:14:34 CDT Harinder Hernandez [facility] CPT-07860 Level 3 Est. Patient 13:47:15 CDT Harinder Hernandez [facility] CPT-59786 Level 3 Est. Patient 14:08:24 CDT Harinder Hernandez [facility] CPT-58160 Level 3 Est. Patient 10:07:15 CDT Harinder Hernandez [facility] CPT-06004 Level 3 Est. Patient 10:06:59 CDT Harinder Hernandez [facility] CPT-13892 Level 3 Est. Patient 15:53:29 CDT Jae Morgan MD [facility] CPT-19495 Level 3 Est. Patient 17:19:04 CDT Harinder Hernandez [facility] CPT-22687 Level 3 Est. Patient 11:13:01 CDT Harinder Hernanedz [facility] CPT-92398 Level 3 Est. Patient 09:03:58 CDT Harinder Hernandez [facility] CPT-92304 Level 3 Est. Patient 14:46:45 UROLOGY SURGEON Harinder Cr David [facility] CPT-78961 Level 3 Est. Patient 09:35:49 UROLOGY SURGEON Harinder Hernandez [facility] CPT-44781 Level 3 Est. Patient 09:29:37 UROLOGY SURGEON Harnider Hernandez [facility] CPT-37966 Level 3 Est. Patient 15:51:07 CDT Harinder Hernandez [facility] CPT-79066 Level 3 Est. Patient 18:13:13 CDT Harinder Hernandez [facility] CPT-69975 Level 3 Est. Patient 10:44:19 CDT Harinder Hernandez [facility] CPT-08467 Level 4 Est. Patient 10:07:19 UROLOGY SURGEON Harinder Hernandez [facility] CPT-80087 Level 3 Est. Patient 15:59:32 UROLOGY SURGEON Harinder Cr [facility] Procedures Code Procedure Name Date Entry Date Standard Description CPT-66675 Abd compl w upright - XRAY USE ONLY 14:48:09 CDT 02/18 CPT-93910 Port a cath flush 13:46:05 CDT CPT-12026 Hip, complete, 2-3 views - XRAY USE ONLY 10:28:40 CDT CPT-68521 BMP - LAB USE ONLY 16:45:09 UROLOGY SURGEON CPT-43052 Port a cath flush 12:00:13 UROLOGY SURGEON CPT-TCMM Transitional Care Mgmt-Moderate 11:20:16 UROLOGY SURGEON CPT-69396 First Vx - Ix admin for Medicare patients 17:35:15 CDT CPT-99629 Fluzone Preservative Free Intramuscular Suspension 17:35 :15 CDT CPT-45007 Microalbumin - LAB USE ONLY 11:52:05 CDT CPT-TCMM Transitional Care Mgmt-Moderate 11:33:57 CDT CPT-76988 No Charge Offi Visit 14:11:29 CDT CPT-15654 Magnesium - LAB USE ONLY 10:45:44 CDT CPT-16831 Lipid - LAB USE ONLY 10:45:44 CDT CPT-65417 CBC - LAB USE ONLY 10:45:44 CDT CPT-17017 Venipuncture Draw Fee 10:45:43 CDT CPT-38058 Venipuncture Draw Fee 18:21:27 CDT CPT-JTINJ Asp/Joint Injection 18:38:04 CDT CPT-72066 Immunization Each Additional Inj 17:38:04 CDT CPT-27645 Immunization Single Admin 17:38:04 CDT CPT-72212 Prevnar 13 17:38:04 CDT CPT-04527 Fluzone Quadrivalent preservative free (>=3yrs.) 17:38: 04 CDT CPT-70803 No Charge Offi Visit 11:14:03 CDT CPT-34864 Chest 2V Frontal and Lat 14:00:18 CDT CPT-OV Office Visit 16:10:28 CDT CPT-JTINJ Asp/Joint Injection 09:03:57 CDT CPT-Cryo Cryotherapy 09:35:49 UROLOGY SURGEON CPT-JTINJ Asp/Joint Injection 09:34:45 UROLOGY SURGEON CPT-J2930 Solu Medrol 125 mg (Methyl Prednisolone Sodium Succinate) 20:37:27 CDT CPT-18623 Abx/Therapy Injection 20:37:27 CDT CPT-31107 Port a cath flush 08:15:51 CDT CPT-26145 Port a cath flush 09:54:16 CDT CPT-16656 Port a cath flush 09:38:02 CDT CPT-60652 Port a cath flush 11:00:27 UROLOGY SURGEON
--- OUTSIDE RECORDS SUMMARY | 2017-12-29 01:21 | XMS REPORT | Clinical Summary ---
[...] of cerebrovascular disease Venous insufficiency 459.81 Active Netite King MAHENDRA Venous (peripheral) insufficiency, unspecified Greater [...] per nostril daily PRN Allergies FLUTICASONE PROPIONATE 72059773724 Active Kortney Mccain Active ALBUTEROL SULFATE 0.083 % NEBU SOLN 1 vial neb q 4hrs PRN Wheezing Dx: J44.1 ALBUTEROL SULFATE 50185882455 Active Kortney Mccain Active AMLODIPINE BESYLATE 5 MG TABS 1 tablet by mouth daily AMLODIPINE BESYLATE 24188483929 Active Harinder Hernandez DO Active NIFEDIPINE ER 30 MG ORAL [id number] 1 daily NIFEDIPINE 76355010146 No Longer Active Harinder Hernandez DO Active POTASSIUM CHLORIDE 20 MEQ ORAL PACK Take 1 tablet by mouth daily POTASSIUM CHLORIDE 76900166883 Active Ciera Pimentel Active FLOVENT HFA 110 MCG/ACT AERO 2 puffs inhaled b.i.d. FLUTICASONE PROPIONATE HFA 82544773743 Active Harinder Hernandez DO Active POTASSIUM CHLORIDE CR 10 MEQ CPCR 1 capsule by mouth daily POTASSIUM CHLORIDE 26373929810 Active Harinder Hernandez DO Active EPIPEN 2-BRUNA 0.3 MG/0.3ML INJ SOAJ 1 INJ NEEDED EPINEPHRINE 59491002857 Active Harinder Hernandez DO Active PREDNISONE 20 MG TAB 1 tab twice daily for 3 day, then one daily for three days PREDNISONE 31723350608 No Longer Active Harinder Hernandez DO Active PREDNISONE 20 MG TAB 1 tablet twice daily for 2 days, then 1 tablet once daily for 2 days PREDNISONE 34647431927 No Longer Active Harinder Hernandez DO Active ASMANEX 120 METERED DOSES 220 MCG/INH INH AEPB 2 puffs orally twice daily MOMETASONE FUROATE 72023357816 Active Jeri Sosa RPT,RMA Active TOPIRAMATE 25 MG TABS 1 tab po BID TOPIRAMATE 63390198456 No Longer Active Nettie Newberry APRN Active AMLODIPINE BESYLATE 5 MG ORAL TABS Take 1 tab po daily AMLODIPINE BESYLATE 68163814165 No Longer Active Nettie Newberry APRN Active MECLIZINE HCL 25 MG TAB 1 tablet three times daily for 3 days, then 1/2 tab three times daily for 3 days. MECLIZINE HCL 59172145680 No Longer Active Nettie Newberry APRN Active AMITRIPTYLINE HCL 25 MG ORAL TABS 1 q hs prn AMITRIPTYLINE HCL 80250985525 No Longer Active Nettie Newberry APRN Active DILAUDID 2 MG ORAL TABS Take 1/2 tab po every 4 hours as needed for pain 2014 HYDROMORPHONE HCL 51753544854 No Longer Active Nettie Newberry MAHENDRA Active CLOPIDOGREL BISULFATE 75 MG ORAL TABS 1 tab by mouth once daily CLOPIDOGREL BISULFATE 67288287102 Active Harinder Hernandez DO Active ATORVASTATIN CALCIUM 10 MG ORAL TABS 1 at bedtime ATORVASTATIN CALCIUM 05570002738 Active Tawnya Pardo MA Active LOVASTATIN 40 MG ORAL TABS Take 1 tab po every hs LOVASTATIN 58906527821 No Longer Active Harinder Hernandez DO Active PREDNISONE 20 MG TAB 2 tabs daily for 4 days, 1 tab daily for 4 days, 1/2 tab daily for 4 days PREDNISONE 03567920416 No Longer Active Harinder Hernandez DO Active LEVAQUIN 500 MG ORAL TABS Take 1 tab po daily x 8 days LEVOFLOXACIN 14228669094 No Longer Active Harinder Hernandez DO Active VENTOLIN HFA 108 (90 BASE) MCG/ACT AERS 2 -4 puffs four times a day PRN 2013 ALBUTEROL SULFATE 99694553070 No Longer Active Jeri Sosa RPT,RMA Active ACEBUTOLOL HCL 200 MG CAPS 1 cap in the morning and 2 caps in the evening ACEBUTOLOL HCL 88779447670 No Longer Active Harinder Hernandez DO Active CEFDINIR 300 MG ORAL CAPS take 1 cap po bid x 10 days CEFDINIR 47443854310 No Longer Active Harinder Hernandez DO Active LOVASTATIN 40 MG TABS 1 pill by mouth nightly for cholesterol LOVASTATIN 31962273881 No Longer Active Nettie Newberry APRN Active NITROSTAT 0.4 MG SUBL 1 tab under tongueas needed for chest pain ( may take 3 total, 5 min apart, then call 911) NITROGLYCERIN 14573171089 No Longer Active Nettie Newberry APRN Active POTASSIUM CHLORIDE CR 10 MEQ CPCR 1 capsule by mouth daily 02/14 POTASSIUM CHLORIDE 10030623439 No Longer Active Nettie Newberry APRN Active TESSALON PERLES 100 MG CAP 1 to 2 tablets by mouth 3 times daily as needed for cough BENZONATATE 59930962971 No Longer Active Nettie Newberry APRN Active THEOPHYLLINE ER 200 MG ORAL [id number] Take 1 tab every 12 hours THEOPHYLLINE 73322609069 Active Tawnya Pardo MA Active PREDNISONE 20 MG TAB 2 po qd x 5 days PREDNISONE 77118778002 No Longer Active Jae Morgan MD Active AZITHROMYCIN 250 MG TABS 2 po qd x 1 day, then 1 po qd x 4 days AZITHROMYCIN 95917535508 No Longer Active Jae Morgan MD Active PREDNISONE 20 MG TAB 1 tab twice daily for 3 day, then one daily for three days PREDNISONE 62795669357 No Longer Active Jae oMrgan MD Active SINGULAIR 10 MG TABS 1 pill by mouth every evening for breathing. MONTELUKAST SODIUM 91542583127 Active Tawnya Pardo MA Active TYLENOL 325 MG TAB 3 by mouth q4h as needed ACETAMINOPHEN 77332149466 Active Harinder Hernandez DO Active POTASSIUM CHLORIDE ER 10 MEQ CR-TABS take 1 tab po daily POTASSIUM CHLORIDE 94864533263 No Longer Active Harinder Hernandez DO Active PREDNISONE 20 MG TAB 1 TID x 2 days, then 1 BID x 3 days, then 1 Daily x 3 days, then stop PREDNISONE 90778896261 No Longer Active Jillina Frazellor BRICEÑON Active LEVAQUIN 500 MG TAB 1 tablet by mouth daily LEVOFLOXACIN 47877700209 No Longer Active Jillina Frazell STAMP MAKER Active NEURONTIN 300 MG CAP 1 cap by mouth three times daily for restless leg 06/22 GABAPENTIN 13684435496 No Longer Active Harinder Hernandez DO Active BENZONATATE 100 MG CAPS 1 cap po TID PRN BENZONATATE 14662478402 No Longer Active Harinder Hernandez DO Active MONTELUKAST SODIUM 10 MG TABS 1 tab po in the evening MONTELUKAST SODIUM 77823516664 No Longer Active Harinder Hernandez DO Active MUPIROCIN 2 % OINT apply to affected area BID x 14 days MUPIROCIN 10844717453 No Longer Active Harinder Hernandez DO Active TYLENOL EXTRA STRENGTH 500 MG TABS as needed ACETAMINOPHEN 68166695621 No Longer Active Harinder Hernandez DO Active PREDNISONE 10 MG TABS 1 tab po daily PREDNISONE 88427370653 No Longer Active Harinder Hernandez DO Active PREDNISONE 20 MG TAB 2 tabs daily for 4 days, 1 tab daily for 4 days, 1/2 tab daily for 4 days PREDNISONE 01207797011 No Longer Active Harinder Hernandez DO Active AZITHROMYCIN 250 MG TABS 2 po qd x 1 day, then 1 po qd x 4 days AZITHROMYCIN 49175923256 No Longer Active Harinder Hernandez DO Active PREDNISONE 20 MG TAB 3 tabs today, then 1 tab twice daily for 3 day, then one daily for three days PREDNISONE 58093203945 No Longer Active Harinder Hernandez DO Active NIFEDIAC CC 30 MG [id number] 1 tablet daily for raynaud's syndrome NIFEDIPINE 05532567910 No Longer Active Tawnya Pardo MA Active AMBIEN 10 MG TAB 1/2 tab by mouth at bedtime as needed for sleep ZOLPIDEM TARTRATE 89730682147 Active Kortney Mccain Active CLONAZEPAM 1 MG TABS 1 tablet at bedtime for insomnia and restless legs 09/14 CLONAZEPAM 80647805621 Active Harinder Hernandez DO Active CLONAZEPAM 0.5 MG TABS 1 tab po daily CLONAZEPAM 16760813232 No Longer Active Harinder Hernandez DO Active PREDNISONE 10 MG TAB 1 tablet daily for COPD PREDNISONE 53889977444 Active Ciera Pimentel Active PROAIR HFA 108 (90 BASE) MCG/ACT AERS 2 puffs four times a day as needed 2012 ALBUTEROL SULFATE 86189286759 Active Harinder Hernandez DO Active FLOVENT HFA 110 MCG/ACT AERO 2 puffs inhaled b.i.d. FLUTICASONE PROPIONATE HFA 66229685459 Active Kortney Mccain Active ACIPHEX 20 MG TBEC 1 tab po daily RABEPRAZOLE SODIUM 14168515946 Active Kaylah Newberry Active CLONAZEPAM 0.5 MG TABS 1 tab po daily CLONAZEPAM 0.5 MG TABS 714681 CLONAZEPAM Inactive PREDNISONE 20 MG TAB 3 tabs today, then 1 tab twice daily for 3 day, then one daily for three days PREDNISONE 20 MG TAB 995690 PREDNISONE Inactive PREDNISONE 20 MG TAB 2 tabs daily for 4 days, 1 tab daily for 4 days, 1/2 tab daily for 4 days PREDNISONE 20 MG TAB 466548 PREDNISONE Inactive PREDNISONE 10 MG TABS 1 tab po daily PREDNISONE 10 MG TABS 385821 PREDNISONE Inactive TYLENOL EXTRA STRENGTH 500 MG TABS as needed TYLENOL EXTRA STRENGTH 500 MG TABS 217747 ACETAMINOPHEN Inactive MUPIROCIN 2 % OINT apply to affected area BID x 14 days MUPIROCIN 2 % OINT 952707 MUPIROCIN Inactive MONTELUKAST SODIUM 10 MG TABS 1 tab po in the evening MONTELUKAST SODIUM 10 MG TABS 20010818 MONTELUKAST SODIUM Inactive BENZONATATE 100 MG CAPS 1 cap po TID PRN BENZONATATE 100 MG CAPS 432553 BENZONATATE Inactive NEURONTIN 300 MG CAP 1 cap by mouth three times daily for restless leg 06/22 NEURONTIN 300 MG CAP 477733 GABAPENTIN Inactive LEVAQUIN 500 MG TAB 1 tablet by mouth daily LEVAQUIN 500 MG TAB 859602 LEVOFLOXACIN Inactive PREDNISONE 20 MG TAB 1 TID x 2 days, then 1 BID x 3 days, then 1 Daily x 3 days, then stop PREDNISONE 20 MG TAB 257966 PREDNISONE Inactive POTASSIUM CHLORIDE ER 10 MEQ CR-TABS take 1 tab po daily POTASSIUM CHLORIDE ER 10 MEQ CR-TABS POTASSIUM CHLORIDE Inactive PREDNISONE 20 MG TAB 1 tab twice daily for 3 day, then one daily for three days PREDNISONE 20 MG TAB 682499 PREDNISONE Inactive TESSALON PERLES 100 MG CAP 1 to 2 tablets by mouth 3 times daily as needed for cough TESSALON PERLES 100 MG CAP 161167 BENZONATATE Inactive POTASSIUM CHLORIDE CR 10 MEQ CPCR 1 capsule by mouth daily 02/14 POTASSIUM CHLORIDE CR 10 MEQ CPCR POTASSIUM CHLORIDE Inactive NITROSTAT 0.4 MG SUBL 1 tab under tongueas needed for chest pain ( may take 3 total, 5 min apart, then call 911) NITROSTAT 0.4 MG SUBL 755804 NITROGLYCERIN Inactive LOVASTATIN 40 MG TABS 1 pill by mouth nightly for cholesterol LOVASTATIN 40 MG TABS 835606 LOVASTATIN Inactive CEFDINIR 300 MG ORAL CAPS take 1 cap po bid x 10 days CEFDINIR 300 MG ORAL CAPS 836517 CEFDINIR Inactive ACEBUTOLOL HCL 200 MG CAPS 1 cap in the morning and 2 caps in the evening ACEBUTOLOL HCL 200 MG CAPS 132928 ACEBUTOLOL HCL Inactive VENTOLIN HFA 108 (90 BASE) MCG/ACT AERS 2 -4 puffs four times a day PRN 2013 VENTOLIN HFA 108 (90 BASE) MCG/ACT AERS ALBUTEROL SULFATE Inactive LEVAQUIN 500 MG ORAL TABS Take 1 tab po daily x 8 days LEVAQUIN 500 MG ORAL TABS 728100 LEVOFLOXACIN Inactive PREDNISONE 20 MG TAB 2 tabs daily for 4 days, 1 tab daily for 4 days, 1/2 tab daily for 4 days PREDNISONE 20 MG TAB 089715 PREDNISONE Inactive LOVASTATIN 40 MG ORAL TABS Take 1 tab po every hs LOVASTATIN 40 MG ORAL TABS 927755 LOVASTATIN Inactive DILAUDID 2 MG ORAL TABS Take 1/2 tab po every 4 hours as needed for pain 2014 DILAUDID 2 MG ORAL TABS 401309 HYDROMORPHONE HCL Inactive AMITRIPTYLINE HCL 25 MG ORAL TABS 1 q hs prn AMITRIPTYLINE HCL 25 MG ORAL TABS 609546 AMITRIPTYLINE HCL Inactive MECLIZINE HCL 25 MG TAB 1 tablet three times daily for 3 days, then 1/2 tab three times daily for 3 days. MECLIZINE HCL 25 MG TAB 439182 MECLIZINE HCL Inactive AMLODIPINE BESYLATE 5 MG ORAL TABS Take 1 tab po daily AMLODIPINE BESYLATE 5 MG ORAL TABS 179723 AMLODIPINE BESYLATE Inactive TOPIRAMATE 25 MG TABS 1 tab po BID TOPIRAMATE 25 MG TABS 447167 TOPIRAMATE Inactive PREDNISONE 20 MG TAB 1 tablet twice daily for 2 days, then 1 tablet once daily for 2 days PREDNISONE 20 MG TAB 438126 PREDNISONE Inactive PREDNISONE 20 MG TAB 1 tab twice daily for 3 day, then one daily for three days PREDNISONE 20 MG TAB 463432 PREDNISONE Inactive NIFEDIPINE ER 30 MG ORAL [id number] 1 daily NIFEDIPINE ER 30 MG ORAL [id number] NIFEDIPINE Inactive AZITHROMYCIN 250 MG TABS 2 po qd x 1 day, then 1 po qd x 4 days AZITHROMYCIN 250 MG TABS 2056960 AZITHROMYCIN Inactive AZITHROMYCIN 250 MG TABS 2 po qd x 1 day, then 1 po qd x 4 days AZITHROMYCIN 250 MG TABS 7266894 AZITHROMYCIN Inactive PREDNISONE 20 MG TAB 2 po qd x 5 days PREDNISONE 20 MG TAB 412862 PREDNISONE Inactive Vital Signs Date Name Value [...] Panel - Chemistry sodium, serum 137 mmol/L 724-273 4638/01/03 potassium, serum 3.4 mmol/L 3.5-5.2 chloride, serum [...] Magnesium - Chemistry cholesterol, serum 180 mg/dL 243-201 2363/08/08 triglyceride, serum, fasting 92 mg/dL 30-200 HDL cholesterol, serum 66 mg/dL 32-96 LDL cholesterol, serum 96 mg/dL 0-130 sodium, serum 142 mmol/L 384-427 4066/08/08 carbon dioxide, venous blood 27.4 mmol/L 21.0-32.0 [...] 10.0-20.0 Encounters Code Encounter Date Provider Facility CPT-92492 Level 3 Est. Patient 09:58:58 CDT Harinder Cr [facility] CPT-23237 Level 3 Est. Patient 12:37:21 CDT Harinder Cr [facility] CPT-63554 Level 3 Est. Patient 18:37:17 CDT Harinder Cr [facility] CPT-97871 Level 4 Est. Patient 11:15:54 CDT Nettie Rohith [facility] CPT-52044 Level 3 Est. Patient 16:42:24 CDT Harinder Shaye [facility] CPT-24883 Level 3 Est. Patient 15:03:36 CDT Harinder Shaye [facility] CPT-77697 Level 3 Est. Patient 15:03:20 CDT Harinder Shaye [facility] CPT-76897 Level 3 Est. Patient 12:14:34 CDT Harinder Shaye [facility] CPT-44683 Level 3 Est. Patient 13:47:15 CDT Harinder rC [facility] CPT-06996 Level 3 Est. Patient 14:08:24 CDT Harinder Cr [facility] CPT-28850 Level 3 Est. Patient 10:07:15 CDT Harinder Cr [facility] CPT-27341 Level 3 Est. Patient 10:06:59 CDT Harinder Hernandez [facility] CPT-85781 Level 3 Est. Patient 15:53:29 CDT Jae Morgan MD [facility] CPT-34937 Level 3 Est. Patient 17:19:04 CDT Harinder Hernandez [facility] CPT-80154 Level 3 Est. Patient 11:13:01 CDT Harinder Hernandez [facility] CPT-37612 Level 3 Est. Patient 09:03:58 CDT Harinder Cr [facility] CPT-68381 Level 3 Est. Patient 14:46:45 CORPORATE COMPLIANCE DIRECTOR Harinder Hernandez [facility] CPT-45786 Level 3 Est. Patient 09:35:49 CORPORATE COMPLIANCE DIRECTOR Harinder Hernandez [facility] CPT-05973 Level 3 Est. Patient 09:29:37 CORPORATE COMPLIANCE DIRECTOR Harinder Hernandez [facility] CPT-89064 Level 3 Est. Patient 15:51:07 CDT Harinder Cr [facility] CPT-40623 Level 3 Est. Patient 18:13:13 CDT Harinder Cr [facility] CPT-00450 Level 3 Est. Patient 10:44:19 CDT Harinder Cr [facility] CPT-00625 Level 4 Est. Patient 10:07:19 CORPORATE COMPLIANCE DIRECTOR Harinder Cr [facility] CPT-14589 Level 3 Est. Patient 15:59:32 CORPORATE COMPLIANCE DIRECTOR Harinder Cr [facility] Procedures Code Procedure Name Date Entry Date Standard Description CPT-80297 BMP - LAB USE ONLY 16:45:09 CORPORATE COMPLIANCE DIRECTOR CPT-86797 Port a cath flush 12:00:13 CORPORATE COMPLIANCE DIRECTOR CPT-TCMM Transitional Care Mgmt-Moderate 11:20:16 CORPORATE COMPLIANCE DIRECTOR CPT-71468 First Vx - Ix admin for Medicare patients 17:35:15 CDT CPT-64779 Fluzone Preservative Free Intramuscular Suspension 17:35 :15 CDT CPT-73782 Microalbumin - LAB USE ONLY 11:52:05 CDT CPT-TCMM Transitional Care Mgmt-Moderate 11:33:57 CDT CPT-69904 No Charge Offi Visit 14:11:29 CDT CPT-93882 Magnesium - LAB USE ONLY 10:45:44 CDT CPT-06174 Lipid - LAB USE ONLY 10:45:44 CDT CPT-96139 CBC - LAB USE ONLY 10:45:44 CDT CPT-59726 Venipuncture Draw Fee 10:45:43 CDT CPT-93220 Venipuncture Draw Fee 18:21:27 CDT CPT-JTINJ Asp/Joint Injection 18:38:04 CDT CPT-55632 Immunization Each Additional Inj 17:38:04 CDT CPT-85366 Immunization Single Admin 17:38:04 CDT CPT-66228 Prevnar 13 17:38:04 CDT CPT-32202 Fluzone Quadrivalent preservative free (>=3yrs.) 17:38: 04 CDT CPT-48889 No Charge Offi Visit 11:14:03 CDT CPT-64357 Chest 2V Frontal and Lat 14:00:18 CDT CPT-OV Office Visit 16:10:28 CDT CPT-JTINJ Asp/Joint Injection 09:03:57 CDT CPT-Cryo Cryotherapy 09:35:49 CORPORATE COMPLIANCE DIRECTOR CPT-JTINJ Asp/Joint Injection 09:34:45 CORPORATE COMPLIANCE DIRECTOR CPT-J2930 Solu Medrol 125 mg (Methyl Prednisolone Sodium Succinate) 20:37:27 CDT CPT-02988 Abx/Therapy Injection 20:37:27 CDT CPT-35869 Port a cath flush 08:15:51 CDT CPT-93023 Port a cath flush 09:54:16 CDT CPT-01793 Port a cath flush 09:38:02 CDT CPT-86074 Port a cath flush 11:00:27 CORPORATE COMPLIANCE DIRECTOR
--- OUTSIDE RECORDS SUMMARY | 2017-12-29 01:23 | XMS REPORT | Clinical Summary ---
Author Author Admin, QIE Organization [facility] [employer] Address Unknown Phone Unavailable Allergies, Adverse Reactions, [...] Harinder Hernandez DO CODEINE Critical Active Harinder Hernnadez DO BENADRYL Critical Active Harinder Hernandez DO BACLOFEN Critical Active Harinder Hernandez DO ASA Critical Active Harinder Hernandez DO PHENERGAN Critical Active Harinder Hernandez DO VALIUM Critical Active Harinder Hernandez DO DEMEROL Critical Active Harinder Hernandez DO SULFA Critical Active Harinder Hernandez DO PCN Critical Active Harinder Hernandez DO LYRICA Critical Active Haridner Hernandez DO Conditions or Problems Problem Name [...] Kortney Mccain Edema leg ICD-782.3 Inactive Kortney Mccani 08/22 Abdominal pain ICD-789.00 Inactive Kortney Mccain [...] + D3 TABLET CALCIUM CARBONATE-VITAMIN D TABS 02808232894 Active Meenu Alejo LPN Active SPIRONOLACTONE 25 MG ORAL TABLET 1 tablet by mouth daily SPIRONOLACTONE 07757735606 No Longer Active Jeri Nieto Active PREDNISONE 20 MG ORAL TABLET 2 tablets by mouth today, then 1 tablet by mouth days 2-3 PREDNISONE 51143810836 No Longer Active Jeri Nieto Active NITROSTAT 0.4 MG SUBLINGUAL TABLET SUBLINGUAL 1 tab SL q5min PRN chest pain NITROGLYCERIN 73003863056 Active Meenu Alejo LPN Active THEOPHYLLINE ER 300 MG ORAL TABLET EXTENDED RELEASE 12 HOUR 1 po BID THEOPHYLLINE 82858315386 Active Harinder Hernandez DO Active POTASSIUM CHLORIDE ER 20 MEQ ORAL TABLET EXTENDED RELEASE 1 po q day POTASSIUM CHLORIDE 28088759476 Active Kortney Mccain Active POTASSIUM CHLORIDE 20 MEQ ORAL PACKET 1 tab po q day POTASSIUM CHLORIDE 49142900952 No Longer Active Kortney Mccain Active POTASSIUM CHLORIDE ER 10 MEQ ORAL CAPSULE EXTENDED RELEASE 1 capsule BID 2016 POTASSIUM CHLORIDE 56062253502 No Longer Active Kortney Mccain Active LASIX 20 MG ORAL TABLET 1 tablet by mouth every morning FUROSEMIDE 84500058008 No Longer Active Kortney Mccain Active FLUOXETINE HCL 10 MG ORAL CAPSULE 1 po qd for depression/anxiety FLUOXETINE HCL 96918792827 Active Meenu Alejo LPN Active VOLTAREN 1 % TRANSDERMAL GEL apply q 6-8 hour to left arm as needed for pain DICLOFENAC SODIUM 81765355187 Active Kortney Mccain Active ALBUTEROL SULFATE (2.5 MG/3ML) 0.083% INHALATION NEBULIZATION SOLUTION 1 vial neb q 4hrs for severe asthma. 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 NIFEDIPINE 06128042183 Active Kortney Mccain Active AMLODIPINE BESYLATE 5 MG ORAL TABLET 1 tablet by mouth daily 2016 AMLODIPINE BESYLATE 48450252996 No Longer Active Harinder Hernandez DO Active TOPAMAX 25 MG ORAL TABLET 1 tab po BID TOPIRAMATE 97139039502 Active Kortney Mccain Active FLUTICASONE PROPIONATE 50 MCG/ACT NASAL SUSPENSION 2 sprays per nostril daily PRN Allergies FLUTICASONE PROPIONATE 58850696622 Active Meenu Alejo LPN Active NIFEDIPINE ER 30 MG ORAL TABLET EXTENDED RELEASE 24 HOUR 1 daily NIFEDIPINE 35957390187 No Longer Active Harinder Hernandez DO Active FLOVENT HFA 110 MCG/ACT INHALATION AEROSOL 2 puffs inhaled b.i.d. FLUTICASONE PROPIONATE HFA 59502534049 Active Harinder Hernandez DO Active EPIPEN 2-BRUNA 0.3 MG/0.3ML INJECTION SOLUTION AUTO-INJECTOR 1 INJ NEEDED EPINEPHRINE 43063016788 Active Meenu Alejo LPN Active PREDNISONE 20 MG ORAL TABLET 1 tab twice daily for 3 day, then one daily for three days PREDNISONE 58338311460 No Longer Active Harinder Hernandez DO Active PREDNISONE 20 MG ORAL TABLET 1 tablet twice daily for 2 days, then 1 tablet once daily for 2 days PREDNISONE 98765595863 No Longer Active Harinder Hernandez DO Active ASMANEX 120 METERED DOSES 220 MCG/INH INHALATION AEROSOL POWDER BREATH ACTIVATED 2 puffs orally twice daily MOMETASONE FUROATE 77763774314 Active Jeri Sosa LPN Active TOPIRAMATE 25 MG ORAL TABLET 1 tab po BID TOPIRAMATE 21457376559 No Longer Active Nettie Newberry APRN Active AMLODIPINE BESYLATE 5 MG ORAL TABLET Take 1 tab po daily AMLODIPINE BESYLATE 98016756473 No Longer Active Nettie Newberry APRN Active MECLIZINE HCL 25 MG ORAL TABLET 1 tablet three times daily for 3 days, then 1/ 2 tab three times daily for 3 days. MECLIZINE HCL 77453107436 No Longer Active Nettie Newberry APRN Active AMITRIPTYLINE HCL 25 MG ORAL TABLET 1 q hs prn AMITRIPTYLINE HCL 35288275788 No Longer Active Nettie Newberry APRN Active DILAUDID 2 MG ORAL TABLET Take 1/2 tab po every 4 hours as needed for pain HYDROMORPHONE HCL 32719556509 No Longer Active Nettie Newberry APRN Active CLOPIDOGREL BISULFATE 75 MG ORAL TABLET 1 tab by mouth once daily CLOPIDOGREL BISULFATE 36039810070 Active Meenu Alejo LPN Active ATORVASTATIN CALCIUM 10 MG ORAL TABLET 1 at bedtime ATORVASTATIN CALCIUM 46110216300 Active Kortney Mccain Active LOVASTATIN 40 MG ORAL TABLET Take 1 tab po every hs LOVASTATIN 17078974041 No Longer Active Harinder Hernandez DO Active PREDNISONE 20 MG ORAL TABLET 2 tabs daily for 4 days, 1 tab daily for 4 days, 1/2 tab daily for 4 days PREDNISONE 59945081870 No Longer Active Harinder Hernandez DO Active LEVAQUIN 500 MG ORAL TABLET Take 1 tab po daily x 8 days LEVOFLOXACIN 67096702364 No Longer Active Harinder Hernandez DO Active VENTOLIN HFA 108 (90 Base) MCG/ACT INHALATION AEROSOL SOLUTION 2 -4 puffs four times a day PRN ALBUTEROL SULFATE 24689724024 No Longer Active Jeri Sosa LPN Active ACEBUTOLOL HCL 200 MG ORAL CAPSULE 1 cap in the morning and 2 caps in the evening ACEBUTOLOL HCL 32520636585 No Longer Active Harinder Hernandez DO Active CEFDINIR 300 MG ORAL CAPSULE take 1 cap po bid x 10 days CEFDINIR 53613915057 No Longer Active Harinder Hernandez DO Active LOVASTATIN 40 MG ORAL TABLET 1 pill by mouth nightly for cholesterol LOVASTATIN 34433900395 No Longer Active Nettie Newberry APRN Active NITROSTAT 0.4 MG SUBLINGUAL TABLET SUBLINGUAL 1 tab under tongueas needed for chest pain ( may take 3 total, 5 min apart, then call 911) NITROGLYCERIN 20302737665 No Longer Active Nettie Newberry APRN Active POTASSIUM CHLORIDE ER 10 MEQ ORAL CAPSULE EXTENDED RELEASE 1 capsule by mouth daily POTASSIUM CHLORIDE 44109104422 No Longer Active Nettie Newberry APRN Active TESSALON PERLES 100 MG ORAL CAPSULE 1 to 2 tablets by mouth 3 times daily as needed for cough BENZONATATE 79709695513 No Longer Active Nettie Newberry APRN Active PREDNISONE 20 MG ORAL TABLET 2 po qd x 5 days PREDNISONE 58205974933 No Longer Active Jae Morgan MD Active AZITHROMYCIN 250 MG ORAL TABLET 2 po qd x 1 day, then 1 po qd x 4 days 12/30 AZITHROMYCIN 79333935821 No Longer Active Jae Morgan MD Active PREDNISONE 20 MG ORAL TABLET 1 tab twice daily for 3 day, then one daily for three days PREDNISONE 33870689199 No Longer Active Jae Morgan MD Active SINGULAIR 10 MG ORAL TABLET 1 pill by mouth every evening for breathing. 2014 MONTELUKAST SODIUM 31167943872 Active Meenu Alejo LPN Active TYLENOL 325 MG ORAL TABLET 3 by mouth q4h as needed ACETAMINOPHEN 64741213123 Active Harinder Hernandez DO Active POTASSIUM CHLORIDE ER 10 MEQ ORAL TABLET EXTENDED RELEASE take 1 tab po daily POTASSIUM CHLORIDE 73814958974 No Longer Active Harinder Hernandez DO Active PREDNISONE 20 MG ORAL TABLET 1 TID x 2 days, then 1 BID x 3 days, then 1 Daily x 3 days, then stop PREDNISONE 70871273027 No Longer Active Jillina Fradankl CRAP SHOOTER Active LEVAQUIN 500 MG ORAL TABLET 1 tablet by mouth daily LEVOFLOXACIN 30119275825 No Longer Active Jillina Frazell CRAP SHOOTER Active NEURONTIN 300 MG ORAL CAPSULE 1 cap by mouth three times daily for restless leg GABAPENTIN 22404500767 No Longer Active Harinder Hernandez DO Active BENZONATATE 100 MG ORAL CAPSULE 1 cap po TID PRN BENZONATATE 46301831084 No Longer Active Harinder Hernandez DO Active MONTELUKAST SODIUM 10 MG ORAL TABLET 1 tab po in the evening 2014 MONTELUKAST SODIUM 86927816150 No Longer Active Harinder Hernandez DO Active MUPIROCIN 2 % EXTERNAL OINTMENT apply to affected area BID x 14 days MUPIROCIN 69729501355 No Longer Active Harinder Hernandez DO Active TYLENOL EXTRA STRENGTH 500 MG ORAL TABLET as needed ACETAMINOPHEN 81168396411 No Longer Active Harinder Hernandez DO Active PREDNISONE 10 MG ORAL TABLET 1 tab po daily PREDNISONE 00947880664 No Longer Active Harinder Hernandez DO Active PREDNISONE 20 MG ORAL TABLET 2 tabs daily for 4 days, 1 tab daily for 4 days, 1/2 tab daily for 4 days PREDNISONE 00554602083 No Longer Active Harinder Hernandez DO Active AZITHROMYCIN 250 MG ORAL TABLET 2 po qd x 1 day, then 1 po qd x 4 days 04/06 AZITHROMYCIN 93217873655 No Longer Active Harinder Hernandez DO Active PREDNISONE 20 MG ORAL TABLET 3 tabs today, then 1 tab twice daily for 3 day, then one daily for three days PREDNISONE 97784370709 No Longer Active Harinder Hernandez DO Active NIFEDIAC CC 30 MG ORAL TABLET EXTENDED RELEASE 24 HOUR 1 tablet daily for raynaud's syndrome NIFEDIPINE 72302908709 No Longer Active Tawnya Pardo MA Active AMBIEN 10 MG ORAL TABLET 1/2 tab by mouth at bedtime as needed for sleep 2013 ZOLPIDEM TARTRATE 88660243669 Active Meenu Alejo LPN Active CLONAZEPAM 1 MG ORAL TABLET 1 tablet at bedtime for insomnia and restless legs CLONAZEPAM 06475565282 Active Harinder Hernandez DO Active CLONAZEPAM 0.5 MG ORAL TABLET 1 tab po daily CLONAZEPAM 95655383150 No Longer Active Harinder Hernandez DO Active PREDNISONE 10 MG ORAL TABLET 1 tablet daily for COPD PREDNISONE 49131594950 Active Kortney Mccain Active PROAIR HFA 108 (90 Base) MCG/ACT INHALATION AEROSOL SOLUTION 2 puffs four times a day as needed ALBUTEROL SULFATE 43125374084 Active Harinder Hernandez DO Active FLOVENT HFA 110 MCG/ACT INHALATION AEROSOL 2 puffs inhaled b.i.d. FLUTICASONE PROPIONATE HFA 26968456700 Active Kortney Mccain Active ACIPHEX 20 MG ORAL TABLET DELAYED RELEASE 1 tab po daily RABEPRAZOLE SODIUM 74157763069 Active Meenu Alejo LPN Active CLONAZEPAM 0.5 MG ORAL TABLET 1 tab po daily CLONAZEPAM 0.5 MG ORAL TABLET 558083 CLONAZEPAM Inactive PREDNISONE 20 MG ORAL TABLET 3 tabs today, then 1 tab twice daily for 3 day, then one daily for three days PREDNISONE 20 MG ORAL TABLET 903461 PREDNISONE Inactive PREDNISONE 20 MG ORAL TABLET 2 tabs daily for 4 days, 1 tab daily for 4 days, 1/2 tab daily for 4 days PREDNISONE 20 MG ORAL TABLET 511384 PREDNISONE Inactive PREDNISONE 10 MG ORAL TABLET 1 tab po daily PREDNISONE 10 MG ORAL TABLET 149040 PREDNISONE Inactive TYLENOL EXTRA STRENGTH 500 MG ORAL TABLET as needed TYLENOL EXTRA STRENGTH 500 MG ORAL TABLET 333347 ACETAMINOPHEN Inactive MUPIROCIN 2 % EXTERNAL OINTMENT apply to affected area BID x 14 days MUPIROCIN 2 % EXTERNAL OINTMENT 975062 MUPIROCIN Inactive MONTELUKAST SODIUM 10 MG ORAL TABLET 1 tab po in the evening 2014 MONTELUKAST SODIUM 10 MG ORAL TABLET 053139 MONTELUKAST SODIUM Inactive BENZONATATE 100 MG ORAL CAPSULE 1 cap po TID PRN BENZONATATE 100 MG ORAL CAPSULE 764872 BENZONATATE Inactive NEURONTIN 300 MG ORAL CAPSULE 1 cap by mouth three times daily for restless leg NEURONTIN 300 MG ORAL CAPSULE 341639 GABAPENTIN Inactive LEVAQUIN 500 MG ORAL TABLET 1 tablet by mouth daily LEVAQUIN 500 MG ORAL TABLET 275327 LEVOFLOXACIN Inactive PREDNISONE 20 MG ORAL TABLET 1 TID x 2 days, then 1 BID x 3 days, then 1 Daily x 3 days, then stop PREDNISONE 20 MG ORAL TABLET 917480 PREDNISONE Inactive POTASSIUM CHLORIDE ER 10 MEQ ORAL TABLET EXTENDED RELEASE take 1 tab po daily POTASSIUM CHLORIDE ER 10 MEQ ORAL TABLET EXTENDED RELEASE POTASSIUM CHLORIDE Inactive PREDNISONE 20 MG ORAL TABLET 1 tab twice daily for 3 day, then one daily for three days PREDNISONE 20 MG ORAL TABLET 592272 PREDNISONE Inactive TESSALON PERLES 100 MG ORAL CAPSULE 1 to 2 tablets by mouth 3 times daily as needed for cough TESSALON PERLES 100 MG ORAL CAPSULE 480635 BENZONATATE Inactive POTASSIUM CHLORIDE ER 10 MEQ ORAL CAPSULE EXTENDED RELEASE 1 capsule by mouth daily POTASSIUM CHLORIDE ER 10 MEQ ORAL CAPSULE EXTENDED RELEASE POTASSIUM CHLORIDE Inactive NITROSTAT 0.4 MG SUBLINGUAL TABLET SUBLINGUAL 1 tab under tongueas needed for chest pain ( may take 3 total, 5 min apart, then call 911) NITROSTAT 0.4 MG SUBLINGUAL TABLET SUBLINGUAL 490013 NITROGLYCERIN Inactive LOVASTATIN 40 MG ORAL TABLET 1 pill by mouth nightly for cholesterol LOVASTATIN 40 MG ORAL TABLET 132283 LOVASTATIN Inactive CEFDINIR 300 MG ORAL CAPSULE take 1 cap po bid x 10 days CEFDINIR 300 MG ORAL CAPSULE 664503 CEFDINIR Inactive ACEBUTOLOL HCL 200 MG ORAL CAPSULE 1 cap in the morning and 2 caps in the evening ACEBUTOLOL HCL 200 MG ORAL CAPSULE 441934 ACEBUTOLOL HCL Inactive VENTOLIN HFA 108 (90 Base) MCG/ACT INHALATION AEROSOL SOLUTION 2 -4 puffs four times a day PRN VENTOLIN HFA 108 (90 Base) MCG/ ACT INHALATION AEROSOL SOLUTION ALBUTEROL SULFATE Inactive LEVAQUIN 500 MG ORAL TABLET Take 1 tab po daily x 8 days LEVAQUIN 500 MG ORAL TABLET 094309 LEVOFLOXACIN Inactive PREDNISONE 20 MG ORAL TABLET 2 tabs daily for 4 days, 1 tab daily for 4 days, 1/2 tab daily for 4 days PREDNISONE 20 MG ORAL TABLET 624604 PREDNISONE Inactive LOVASTATIN 40 MG ORAL TABLET Take 1 tab po every hs LOVASTATIN 40 MG ORAL TABLET 079850 LOVASTATIN Inactive DILAUDID 2 MG ORAL TABLET Take 1/2 tab po every 4 hours as needed for pain DILAUDID 2 MG ORAL TABLET 064038 HYDROMORPHONE HCL Inactive AMITRIPTYLINE HCL 25 MG ORAL TABLET 1 q hs prn AMITRIPTYLINE HCL 25 MG ORAL TABLET 540811 AMITRIPTYLINE HCL Inactive MECLIZINE HCL 25 MG ORAL TABLET 1 tablet three times daily for 3 days, then 1/ 2 tab three times daily for 3 days. MECLIZINE HCL 25 MG ORAL TABLET 695042 MECLIZINE HCL Inactive AMLODIPINE BESYLATE 5 MG ORAL TABLET Take 1 tab po daily AMLODIPINE BESYLATE 5 MG ORAL TABLET 386835 AMLODIPINE BESYLATE Inactive TOPIRAMATE 25 MG ORAL TABLET 1 tab po BID TOPIRAMATE 25 MG ORAL TABLET 125888 TOPIRAMATE Inactive PREDNISONE 20 MG ORAL TABLET 1 tablet twice daily for 2 days, then 1 tablet once daily for 2 days PREDNISONE 20 MG ORAL TABLET 959925 PREDNISONE Inactive PREDNISONE 20 MG ORAL TABLET 1 tab twice daily for 3 day, then one daily for three days PREDNISONE 20 MG ORAL TABLET 808355 PREDNISONE Inactive NIFEDIPINE ER 30 MG ORAL TABLET EXTENDED RELEASE 24 HOUR 1 daily NIFEDIPINE ER 30 MG ORAL TABLET EXTENDED RELEASE 24 HOUR NIFEDIPINE Inactive AMLODIPINE BESYLATE 5 MG ORAL TABLET 1 tablet by mouth daily 2016 AMLODIPINE BESYLATE 5 MG ORAL TABLET 312630 AMLODIPINE BESYLATE Inactive LASIX 20 MG ORAL TABLET 1 tablet by mouth every morning LASIX 20 MG ORAL TABLET 490704 FUROSEMIDE Inactive POTASSIUM CHLORIDE ER 10 MEQ ORAL CAPSULE EXTENDED RELEASE 1 capsule BID 2016 POTASSIUM CHLORIDE ER 10 MEQ ORAL CAPSULE EXTENDED RELEASE POTASSIUM CHLORIDE Inactive POTASSIUM CHLORIDE 20 MEQ ORAL PACKET 1 tab po q day POTASSIUM CHLORIDE 20 MEQ ORAL PACKET 5023419 POTASSIUM CHLORIDE Inactive PREDNISONE 20 MG ORAL TABLET 2 tablets by mouth today, then 1 tablet by mouth days 2-3 PREDNISONE 20 MG ORAL TABLET 962769 PREDNISONE Inactive SPIRONOLACTONE 25 MG ORAL TABLET 1 tablet by mouth daily SPIRONOLACTONE 25 MG ORAL TABLET 127969 SPIRONOLACTONE Inactive AZITHROMYCIN 250 MG ORAL TABLET 2 po qd x 1 day, then 1 po qd x 4 days 04/06 AZITHROMYCIN 250 MG ORAL TABLET 984121 AZITHROMYCIN Inactive AZITHROMYCIN 250 MG ORAL TABLET 2 po qd x 1 day, then 1 po qd x 4 days 12/30 AZITHROMYCIN 250 MG ORAL TABLET 469668 AZITHROMYCIN Inactive PREDNISONE 20 MG ORAL TABLET 2 po qd x 5 days PREDNISONE 20 MG ORAL TABLET 534277 PREDNISONE Inactive Vital Signs Date Name Value [...] Panel - Chemistry sodium, serum 140 mmol/L 426-558 9401/07/13 potassium, serum 3.2 mmol/L 3.5-5.2 chloride, serum 103 mmol/L 98-107 carbon dioxide, venous blood 26.9 mmol/L 21.0-32.0 blood glucose 93 mg/dL 65-110 calcium, serum 9.2 mg/dL 8.5-10.1 urea nitrogen, blood 13 mg/dL 7-18 creatinine, serum 0.84 mg/dL 0.60-1.30 sodium, serum 140 mmol/L 598-302 6969/08/21 potassium, serum 3.8 mmol/L 3.5-5.2 chloride, serum [...] ... - Chemistry sodium, serum 141 mmol/L 815-543 9329/08/07 carbon dioxide, venous blood 34.0 mmol/L 21.0-32.0 [...] 1.40 mg/dL 0.00-1.00 cholesterol, serum 192 mg/dL 910-683 7158/10/19 triglyceride, serum, fasting 71 mg/dL 30-200 HDL cholesterol, serum 72 mg/dL 32-60 LDL cholesterol, serum 106 mg/dL 0-130 Lab Report: Rapid Strep - Lab Microbial identification kit, rapid strep method Negative Negative Lab Report: THEOPHYLLINE - Toxicology theophylline level, serum 3.1 ug/mL 10.0-20.0 Encounters Code Encounter Date Provider Facility CPT-01046 Level 4 Est. Patient 10:17:51 FILM PRODUCER Harinder Cr [facility] CPT-29635 Level 3 Est. Patient 12:36:15 FILM PRODUCER Harinder Cr [facility] CPT-28660 Level 3 Est. Patient 15:14:45 FILM PRODUCER Harinder Shaye [facility] CPT-46465 Level 4 Est. Patient 14:45:25 CDT Harinder Cr [facility] CPT-51140 Level 4 Est. Patient 09:15:13 CDT Harinder Cr [facility] CPT-54161 Level 3 Est. Patient 11:51:58 CDT Harinder Cr [facility] CPT-36371 Level 3 Est. Patient 11:30:05 CDT Harinder Cr [facility] CPT-23938 Level 4 Est. Patient 10:19:23 CDT Harinder Cr [facility] CPT-28705 Level 3 Est. Patient 09:58:58 CDT Harinder Cr [facility] CPT-16267 Level 3 Est. Patient 12:37:21 CDT Harinder Cr [facility] CPT-50126 Level 3 Est. Patient 18:37:17 CDT Harinder Cr [facility] CPT-33167 Level 4 Est. Patient 11:15:54 CDT Nettie Newberry [facility] CPT-53804 Level 3 Est. Patient 16:42:24 CDT Harinder Cr [facility] CPT-74683 Level 3 Est. Patient 15:03:36 CDT Harinder Cr [facility] CPT-20398 Level 3 Est. Patient 15:03:20 CDT Harinder Cr [facility] CPT-59558 Level 3 Est. Patient 12:14:34 CDT Harinder Hernandez [facility] CPT-95606 Level 3 Est. Patient 13:47:15 CDT Harinder Hernandez [facility] CPT-87714 Level 3 Est. Patient 14:08:24 CDT Harinder Hernandez [facility] CPT-17620 Level 3 Est. Patient 10:07:15 CDT Harinder Hernandez [facility] CPT-61311 Level 3 Est. Patient 10:06:59 CDT Harinder Hernandez [facility] CPT-47481 Level 3 Est. Patient 15:53:29 CDT Jae Morgan [facility] CPT-93755 Level 3 Est. Patient 17:19:04 CDT Harinder Hernandez [facility] CPT-56871 Level 3 Est. Patient 11:13:01 CDT Harinder Hernandez [facility] CPT-59365 Level 3 Est. Patient 09:03:58 CDT Harinder Hernandez [facility] CPT-31311 Level 3 Est. Patient 14:46:45 FILM PRODUCER Harinder Hernandez [facility] CPT-59057 Level 3 Est. Patient 09:35:49 FILM PRODUCER Harinder Hernandez [facility] CPT-96660 Level 3 Est. Patient 09:29:37 FILM PRODUCER Harinder Hernandez [facility] CPT-24656 Level 3 Est. Patient 15:51:07 CDT Harinder Hernandez [facility] CPT-13992 Level 3 Est. Patient 18:13:13 CDT Harinder Hernandez [facility] CPT-45713 Level 3 Est. Patient 10:44:19 CDT Harinder Cr [facility] CPT-08190 Level 4 Est. Patient 10:07:19 FILM PRODUCER Harinder Hernandez DO [facility] CPT-51119 Level 3 Est. Patient 15:59:32 FILM PRODUCER Harinder Hernandez DO [facility] Procedures Code Procedure Name Date Entry Date Standard Description CPT-75428 Bone Density - XRAY USE ONLY 14:43:42 CDT CPT-G0009 Administration of Pneumococcal Vaccine 10:33:25 FILM PRODUCER CPT-86878 Pneumovax 23 Injection Injectable 25 MCG/0.5ML 10:33:25 FILM PRODUCER CPT-35135 First Vx - Ix admin for Medicare patients 10:33:25 FILM PRODUCER CPT-32975 Fluzone Quadrivalent Intramuscular Suspension 0.5 ML 10: 33:25 FILM PRODUCER CPT-Cryo Cryotherapy 10:17:51 FILM PRODUCER CPT-G0438 Initial Annual Wellness Exam 10:08:59 FILM PRODUCER CPT-78945 Abd compl w upright - XRAY USE ONLY 14:48:09 CDT 02/18 CPT-40176 Port a cath flush 13:46:05 CDT CPT-08239 Hip, complete, 2-3 views - XRAY USE ONLY 10:28:40 CDT CPT-01506 BMP - LAB USE ONLY 16:45:09 FILM PRODUCER CPT-23357 Port a cath flush 12:00:13 FILM PRODUCER CPT-TCMM Transitional Care Mgmt-Moderate 11:20:16 FILM PRODUCER CPT-07060 First Vx - Ix admin for Medicare patients 17:35:15 CDT CPT-94721 Fluzone Preservative Free Intramuscular Suspension 17:35 :15 CDT CPT-32782 Microalbumin - LAB USE ONLY 11:52:05 CDT CPT-TCMM Transitional Care Mgmt-Moderate 11:33:57 CDT CPT-50942 No Charge Offi Visit 14:11:29 CDT CPT-50912 Magnesium - LAB USE ONLY 10:45:44 CDT CPT-54830 Lipid - LAB USE ONLY 10:45:44 CDT CPT-01182 CBC - LAB USE ONLY 10:45:44 CDT CPT-72504 Venipuncture Draw Fee 10:45:43 CDT CPT-70784 Venipuncture Draw Fee 18:21:27 CDT CPT-JTINJ Asp/Joint Injection 18:38:04 CDT CPT-03833 Immunization Each Additional Inj 17:38:04 CDT CPT-77096 Immunization Single Admin 17:38:04 CDT CPT-19793 Prevnar 13 17:38:04 CDT CPT-45803 Fluzone Quadrivalent preservative free (>=3yrs.) 17:38: 04 CDT CPT-14721 No Charge Offi Visit 11:14:03 CDT CPT-58115 Chest 2V Frontal and Lat 14:00:18 CDT CPT-OV Office Visit 16:10:28 CDT CPT-JTINJ Asp/Joint Injection 09:03:57 CDT CPT-Cryo Cryotherapy 09:35:49 FILM PRODUCER CPT-JTINJ Asp/Joint Injection 09:34:45 FILM PRODUCER CPT-J2930 Solu Medrol 125 mg (Methyl Prednisolone Sodium Succinate) 20:37:27 CDT CPT-14817 Abx/Therapy Injection 20:37:27 CDT CPT-81321 Port a cath flush 08:15:51 CDT CPT-64505 Port a cath flush 09:54:16 CDT CPT-04558 Port a cath flush 09:38:02 CDT CPT-78105 Port a cath flush 11:00:27 FILM PRODUCER
--- OUTSIDE RECORDS SUMMARY | 2017-12-29 01:25 | XMS REPORT | Clinical Summary ---
Author Author Admin, QIE Organization [facility] [employer] Address Unknown Phone Unavailable Allergies, Adverse Reactions, [...] vascular catheter Back pain, lumbar 724.2 Resolved Hrainder Hernandez DO Lumbago Insomnia 780.52 Resolved Harinder [...] unspecified Greater trochanteric bursitis, left 726.5 Active Hrainder Hernandez DO Enthesopathy of hip region Diarrhea, [...] 300.4 Active Harinder Hernandez DO Dysthymic disorder Breast mass, right ICD-611.72 Inactive Harinder Hernandez [...] MEQ CPCR 1 capsule BID POTASSIUM CHLORIDE 57212623107 Active Kortney Mccain Active FLUOXETINE HCL 10 MG ORAL CAPS 1 po qd for depression/anxiety FLUOXETINE HCL 03083118616 Active Harinder Hernandez DO Active VOLTAREN 1 % GEL apply q 6-8 hour to left arm as needed for pain DICLOFENAC SODIUM 99278220662 Active Harinder Hernandez DO Active LASIX 20 MG TAB 1 tablet by mouth every morning FUROSEMIDE 20024611208 Prince Mccain Active POTASSIUM CHLORIDE 20 MEQ ORAL PACK 1 tab po BID POTASSIUM CHLORIDE 18334186201 Prince Mccain Active ALBUTEROL SULFATE 0.083 % NEBU SOLN 1 vial neb q 4hrs for severe asthma. 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 FLUTICASONE PROPIONATE HFA 55919484206 Active Harinder Hernandez DO Active EPIPEN 2-BRUNA 0.3 MG/0.3ML INJ SOAJ 1 INJ NEEDED EPINEPHRINE 60181295325 Active Harinder Hernandez DO Active PREDNISONE 20 MG TAB 1 tab twice daily for 3 day, then one daily for three days PREDNISONE 18266520860 No Longer Active Harinder Hernandez DO Active PREDNISONE 20 MG TAB 1 tablet twice daily for 2 days, then 1 tablet once daily for 2 days PREDNISONE 92900676686 No Longer Active Harinder Hernandez DO Active ASMANEX 120 METERED DOSES 220 MCG/INH INH AEPB 2 puffs orally twice daily MOMETASONE FUROATE 10318346612 Active Jeri Sosa RPT,RMA Active TOPIRAMATE 25 MG TABS 1 tab po BID TOPIRAMATE 04937422117 No Longer Active Nettie Newberry APRN Active AMLODIPINE BESYLATE 5 MG ORAL TABS Take 1 tab po daily AMLODIPINE BESYLATE 76627277321 No Longer Active Nettie Newberry APRN Active MECLIZINE HCL 25 MG TAB 1 tablet three times daily for 3 days, then 1/2 tab three times daily for 3 days. MECLIZINE HCL 18849198061 No Longer Active Nettie Newberry APRN Active AMITRIPTYLINE HCL 25 MG ORAL TABS 1 q hs prn AMITRIPTYLINE HCL 07594233775 No Longer Active Nettie Newberry APRN Active DILAUDID 2 MG ORAL TABS Take 1/2 tab po every 4 hours as needed for pain 2014 HYDROMORPHONE HCL 30921357160 No Longer Active Nettie Newberry APRN Active CLOPIDOGREL BISULFATE 75 MG ORAL TABS 1 tab by mouth once daily CLOPIDOGREL BISULFATE 33264535271 Active Harinder Hernandez DO Active ATORVASTATIN CALCIUM 10 MG ORAL TABS 1 at bedtime ATORVASTATIN CALCIUM 50069237286 Active Tawnya Pardo MA Active LOVASTATIN 40 MG ORAL TABS Take 1 tab po every hs LOVASTATIN 23858114070 No Longer Active Harinder Hernandez DO Active PREDNISONE 20 MG TAB 2 tabs daily for 4 days, 1 tab daily for 4 days, 1/2 tab daily for 4 days PREDNISONE 65844783235 No Longer Active Harinder Hernandez DO Active LEVAQUIN 500 MG ORAL TABS Take 1 tab po daily x 8 days LEVOFLOXACIN 34010766815 No Longer Active Harinder Hernandez DO Active VENTOLIN HFA 108 (90 BASE) MCG/ACT AERS 2 -4 puffs four times a day PRN 2013 ALBUTEROL SULFATE 91135913121 No Longer Active Jeri Sosa RPT,RMA Active ACEBUTOLOL HCL 200 MG CAPS 1 cap in the morning and 2 caps in the evening ACEBUTOLOL HCL 57976900192 No Longer Active Harinder Hernandez DO Active CEFDINIR 300 MG ORAL CAPS take 1 cap po bid x 10 days CEFDINIR 64781288309 No Longer Active Harinder Hernandez DO Active LOVASTATIN 40 MG TABS 1 pill by mouth nightly for cholesterol LOVASTATIN 81246471719 No Longer Active Nettie Newberry APRN Active NITROSTAT 0.4 MG SUBL 1 tab under tongueas needed for chest pain ( may take 3 total, 5 min apart, then call 911) NITROGLYCERIN 07394340431 No Longer Active Nettie Newberry APRN Active POTASSIUM CHLORIDE CR 10 MEQ CPCR 1 capsule by mouth daily 02/14 POTASSIUM CHLORIDE 82506961091 No Longer Active Nettie Newberry APRN Active TESSALON PERLES 100 MG CAP 1 to 2 tablets by mouth 3 times daily as needed for cough BENZONATATE 61021050258 No Longer Active Nettie Newberry MAHENDRA Active THEOPHYLLINE ER 200 MG ORAL [id number] Take 1 tab every 12 hours THEOPHYLLINE 55131122989 Active Kortneyalice Mccain Active PREDNISONE 20 MG TAB 2 po qd x 5 days PREDNISONE 58518811000 No Longer Active Jae Morgan MD Active AZITHROMYCIN 250 MG TABS 2 po qd x 1 day, then 1 po qd x 4 days AZITHROMYCIN 83261624179 No Longer Active Jae Morgan MD Active PREDNISONE 20 MG TAB 1 tab twice daily for 3 day, then one daily for three days PREDNISONE 14170452161 No Longer Active Jae Morgan MD Active SINGULAIR 10 MG TABS 1 pill by mouth every evening for breathing. MONTELUKAST SODIUM 80284322769 Active Tawnya Pardo MA Active TYLENOL 325 MG TAB 3 by mouth q4h as needed ACETAMINOPHEN 78921018569 Active Harinder Hernandez DO Active POTASSIUM CHLORIDE ER 10 MEQ CR-TABS take 1 tab po daily POTASSIUM CHLORIDE 41200176798 No Longer Active Harinder Hernandez DO Active PREDNISONE 20 MG TAB 1 TID x 2 days, then 1 BID x 3 days, then 1 Daily x 3 days, then stop PREDNISONE 66118162711 No Longer Active Jillkvng Frashai MCCRAY Active LEVAQUIN 500 MG TAB 1 tablet by mouth daily LEVOFLOXACIN 30913894485 No Longer Active Jillina Frazell MAHENDRA Active NEURONTIN 300 MG CAP 1 cap by mouth three times daily for restless leg 06/22 GABAPENTIN 06836876088 No Longer Active Harinder Hernandez DO Active BENZONATATE 100 MG CAPS 1 cap po TID PRN BENZONATATE 06582286573 No Longer Active Harinder Hernandez DO Active MONTELUKAST SODIUM 10 MG TABS 1 tab po in the evening MONTELUKAST SODIUM 11993051693 No Longer Active Harinder Hernandez DO Active MUPIROCIN 2 % OINT apply to affected area BID x 14 days MUPIROCIN 42987294205 No Longer Active Harinder Hernandez DO Active TYLENOL EXTRA STRENGTH 500 MG TABS as needed ACETAMINOPHEN 30211440085 No Longer Active Harinder Hernandez DO Active PREDNISONE 10 MG TABS 1 tab po daily PREDNISONE 18377521471 No Longer Active Harinder Hernandez DO Active PREDNISONE 20 MG TAB 2 tabs daily for 4 days, 1 tab daily for 4 days, 1/2 tab daily for 4 days PREDNISONE 35587659850 No Longer Active Harinder Hernandez DO Active AZITHROMYCIN 250 MG TABS 2 po qd x 1 day, then 1 po qd x 4 days AZITHROMYCIN 49662805166 No Longer Active Harinder Hernandez DO Active PREDNISONE 20 MG TAB 3 tabs today, then 1 tab twice daily for 3 day, then one daily for three days PREDNISONE 01281179044 No Longer Active Harinder Hernandez DO Active NIFEDIAC CC 30 MG [id number] 1 tablet daily for raynaud's syndrome NIFEDIPINE 87235040822 No Longer Active Tawnya Pardo MA Active AMBIEN 10 MG TAB 1/2 tab by mouth at bedtime as needed for sleep ZOLPIDEM TARTRATE 48660252655 Active Ciera Pimentel Active CLONAZEPAM 1 MG TABS 1 tablet at bedtime for insomnia and restless legs 09/14 CLONAZEPAM 39451228333 Active Harinder Hernandez DO Active CLONAZEPAM 0.5 MG TABS 1 tab po daily CLONAZEPAM 15952824268 No Longer Active Harinder Hernandez DO Active PREDNISONE 10 MG TAB 1 tablet daily for COPD PREDNISONE 29811511715 Active Ciera Pimentel Active PROAIR HFA 108 (90 BASE) MCG/ACT AERS 2 puffs four times a day as needed 2012 ALBUTEROL SULFATE 04405278217 Active Harinder Hernandez DO Active FLOVENT HFA 110 MCG/ACT AERO 2 puffs inhaled b.i.d. FLUTICASONE PROPIONATE HFA 57104802007 Active Kortney Mccain Active ACIPHEX 20 MG TBEC 1 tab po daily RABEPRAZOLE SODIUM 41401508938 Active Kaylah Newberry Active CLONAZEPAM 0.5 MG TABS 1 tab po daily CLONAZEPAM 0.5 MG TABS 396597 CLONAZEPAM Inactive PREDNISONE 20 MG TAB 3 tabs today, then 1 tab twice daily for 3 day, then one daily for three days PREDNISONE 20 MG TAB 757498 PREDNISONE Inactive PREDNISONE 20 MG TAB 2 tabs daily for 4 days, 1 tab daily for 4 days, 1/2 tab daily for 4 days PREDNISONE 20 MG TAB 887741 PREDNISONE Inactive PREDNISONE 10 MG TABS 1 tab po daily PREDNISONE 10 MG TABS 011189 PREDNISONE Inactive TYLENOL EXTRA STRENGTH 500 MG TABS as needed TYLENOL EXTRA STRENGTH 500 MG TABS 336114 ACETAMINOPHEN Inactive MUPIROCIN 2 % OINT apply to affected area BID x 14 days MUPIROCIN 2 % OINT 036935 MUPIROCIN Inactive MONTELUKAST SODIUM 10 MG TABS 1 tab po in the evening MONTELUKAST SODIUM 10 MG TABS 996616 MONTELUKAST SODIUM Inactive BENZONATATE 100 MG CAPS 1 cap po TID PRN BENZONATATE 100 MG CAPS 446591 BENZONATATE Inactive NEURONTIN 300 MG CAP 1 cap by mouth three times daily for restless leg 06/22 NEURONTIN 300 MG CAP 635743 GABAPENTIN Inactive LEVAQUIN 500 MG TAB 1 tablet by mouth daily LEVAQUIN 500 MG TAB 167805 LEVOFLOXACIN Inactive PREDNISONE 20 MG TAB 1 TID x 2 days, then 1 BID x 3 days, then 1 Daily x 3 days, then stop PREDNISONE 20 MG TAB 494658 PREDNISONE Inactive POTASSIUM CHLORIDE ER 10 MEQ CR-TABS take 1 tab po daily POTASSIUM CHLORIDE ER 10 MEQ CR-TABS POTASSIUM CHLORIDE Inactive PREDNISONE 20 MG TAB 1 tab twice daily for 3 day, then one daily for three days PREDNISONE 20 MG TAB 532072 PREDNISONE Inactive TESSALON PERLES 100 MG CAP 1 to 2 tablets by mouth 3 times daily as needed for cough TESSALON PERLES 100 MG CAP 040034 BENZONATATE Inactive POTASSIUM CHLORIDE CR 10 MEQ CPCR 1 capsule by mouth daily 02/14 POTASSIUM CHLORIDE CR 10 MEQ CPCR POTASSIUM CHLORIDE Inactive NITROSTAT 0.4 MG SUBL 1 tab under tongueas needed for chest pain ( may take 3 total, 5 min apart, then call 911) NITROSTAT 0.4 MG SUBL 159738 NITROGLYCERIN Inactive LOVASTATIN 40 MG TABS 1 pill by mouth nightly for cholesterol LOVASTATIN 40 MG TABS LOVASTATIN Inactive CEFDINIR 300 MG ORAL CAPS take 1 cap po bid x 10 days CEFDINIR 300 MG ORAL CAPS 001374 CEFDINIR Inactive ACEBUTOLOL HCL 200 MG CAPS 1 cap in the morning and 2 caps in the evening ACEBUTOLOL HCL 200 MG CAPS 240352 ACEBUTOLOL HCL Inactive VENTOLIN HFA 108 (90 BASE) MCG/ACT AERS 2 -4 puffs four times a day PRN 2013 VENTOLIN HFA 108 (90 BASE) MCG/ACT AERS ALBUTEROL SULFATE Inactive LEVAQUIN 500 MG ORAL TABS Take 1 tab po daily x 8 days LEVAQUIN 500 MG ORAL TABS 826490 LEVOFLOXACIN Inactive PREDNISONE 20 MG TAB 2 tabs daily for 4 days, 1 tab daily for 4 days, 1/2 tab daily for 4 days PREDNISONE 20 MG TAB 000849 PREDNISONE Inactive LOVASTATIN 40 MG ORAL TABS Take 1 tab po every hs LOVASTATIN 40 MG ORAL TABS LOVASTATIN Inactive DILAUDID 2 MG ORAL TABS Take 1/2 tab po every 4 hours as needed for pain 2014 DILAUDID 2 MG ORAL TABS 905670 HYDROMORPHONE HCL Inactive AMITRIPTYLINE HCL 25 MG ORAL TABS 1 q hs prn AMITRIPTYLINE HCL 25 MG ORAL TABS 351891 AMITRIPTYLINE HCL Inactive MECLIZINE HCL 25 MG TAB 1 tablet three times daily for 3 days, then 1/2 tab three times daily for 3 days. MECLIZINE HCL 25 MG TAB 955108 MECLIZINE HCL Inactive AMLODIPINE BESYLATE 5 MG ORAL TABS Take 1 tab po daily AMLODIPINE BESYLATE 5 MG ORAL TABS 593173 AMLODIPINE BESYLATE Inactive TOPIRAMATE 25 MG TABS 1 tab po BID TOPIRAMATE 25 MG TABS 631497 TOPIRAMATE Inactive PREDNISONE 20 MG TAB 1 tablet twice daily for 2 days, then 1 tablet once daily for 2 days PREDNISONE 20 MG TAB 698289 PREDNISONE Inactive PREDNISONE 20 MG TAB 1 tab twice daily for 3 day, then one daily for three days PREDNISONE 20 MG TAB 172704 PREDNISONE Inactive NIFEDIPINE ER 30 MG ORAL [id number] 1 daily NIFEDIPINE ER 30 MG ORAL [id number] NIFEDIPINE Inactive AMLODIPINE BESYLATE 5 MG TABS 1 tablet by mouth daily AMLODIPINE BESYLATE 5 MG TABS 219473 AMLODIPINE BESYLATE Inactive AZITHROMYCIN 250 MG TABS 2 po qd x 1 day, then 1 po qd x 4 days AZITHROMYCIN 250 MG TABS 9487222 AZITHROMYCIN Inactive AZITHROMYCIN 250 MG TABS 2 po qd x 1 day, then 1 po qd x 4 days AZITHROMYCIN 250 MG TABS 7188569 AZITHROMYCIN Inactive PREDNISONE 20 MG TAB 2 po qd x 5 days PREDNISONE 20 MG TAB 682421 PREDNISONE Inactive Vital Signs Date Name Value Unit Range Description blood pressure, diastolic - 8462-4 67 mm[Hg] BP adan blood pressure, systolic - 8480-6 115 mm[Hg] BP sys height E&M - 8302-2 64 [in_us] Bdy height pulse rate E&M - 8867-4 59 /min Heart rate temperature E&M 96.1 [degF] Body temperature weight E&M - 3141-9 133 [lb_av] Weight Measured blood pressure, diastolic - [...] Panel - Chemistry sodium, serum 137 mmol/L 461-702 7201/01/03 potassium, serum 3.4 mmol/L 3.5-5.2 chloride, serum 102 mmol/L 98-107 carbon dioxide, venous blood 29.2 mmol/L 21.0-32.0 blood glucose 87 mg/dL 65-110 calcium, serum 8.5 mg/dL 8.5-10.1 urea nitrogen, blood 8 mg/dL 7-18 creatinine, serum 0.82 mg/dL 0.55-1.30 sodium, serum 140 mmol/L 978-543 0420/07/13 potassium, serum 3.2 mmol/L 3.5-5.2 chloride, serum [...] Magnesium - Chemistry cholesterol, serum 180 mg/dL 500-177 0229/08/08 triglyceride, serum, fasting 92 mg/dL 30-200 HDL cholesterol, serum 66 mg/dL 32-96 LDL cholesterol, serum 96 mg/dL 0-130 sodium, serum 142 mmol/L 125-314 9788/08/08 carbon dioxide, venous blood 27.4 mmol/L 21.0-32.0 [...] 10.0-20.0 Encounters Code Encounter Date Provider Facility CPT-19134 Level 4 Est. Patient 09:15:13 CDT Harinder Cr [facility] CPT-75091 Level 3 Est. Patient 11:51:58 CDT Harinder Cr [facility] CPT-49669 Level 3 Est. Patient 11:30:05 CDT Harinder Hernandez [facility] CPT-42297 Level 4 Est. Patient 10:19:23 CDT Harinder Hernandez [facility] CPT-30054 Level 3 Est. Patient 09:58:58 CDT Harinder Hernandez [facility] CPT-97753 Level 3 Est. Patient 12:37:21 CDT Harinder Hernadnez [facility] CPT-01727 Level 3 Est. Patient 18:37:17 CDT Harinder Hernandez [facility] CPT-37454 Level 4 Est. Patient 11:15:54 CDT Nettie Newberry APRN [facility] CPT-17873 Level 3 Est. Patient 16:42:24 CDT Harinder Hernandez [facility] CPT-78611 Level 3 Est. Patient 15:03:36 CDT Harinder Hernandez [facility] CPT-28830 Level 3 Est. Patient 15:03:20 CDT Harinder Cr [facility] CPT-26510 Level 3 Est. Patient 12:14:34 CDT Harinder Hernandez [facility] CPT-13596 Level 3 Est. Patient 13:47:15 CDT Harinder Hernandez [facility] CPT-45624 Level 3 Est. Patient 14:08:24 CDT Harinder Hernandez [facility] CPT-21885 Level 3 Est. Patient 10:07:15 CDT Harinder Cr [facility] CPT-19367 Level 3 Est. Patient 10:06:59 CDT Harinder Cr David [facility] CPT-22465 Level 3 Est. Patient 15:53:29 CDT Jae Morgan MD [facility] CPT-00316 Level 3 Est. Patient 17:19:04 CDT Harinder Hernandez [facility] CPT-05180 Level 3 Est. Patient 11:13:01 CDT Harinder Hernandez [facility] CPT-41704 Level 3 Est. Patient 09:03:58 CDT Harinder Hernandez [facility] CPT-93024 Level 3 Est. Patient 14:46:45 [employer] Harinder Hernandez [facility] CPT-79050 Level 3 Est. Patient 09:35:49 [employer] Harinder Hernandez [facility] CPT-02918 Level 3 Est. Patient 09:29:37 [employer] Harinder Hernandez [facility] CPT-43076 Level 3 Est. Patient 15:51:07 CDT Harinder Hernandez [facility] CPT-41718 Level 3 Est. Patient 18:13:13 CDT Harinder Cr [facility] CPT-79539 Level 3 Est. Patient 10:44:19 CDT Harinder Cr [facility] CPT-51774 Level 4 Est. Patient 10:07:19 [employer] Harinder Cr [facility] CPT-69773 Level 3 Est. Patient 15:59:32 [employer] Harinder Cr [facility] Procedures Code Procedure Name Date Entry Date Standard Description CPT-64275 Port a cath flush 13:46:05 CDT CPT-00623 Hip, complete, 2-3 views - XRAY USE ONLY 10:28:40 CDT CPT-90286 BMP - LAB USE ONLY 16:45:09 [employer] CPT-25490 Port a cath flush 12:00:13 [employer] CPT-TCMM Transitional Care Mgmt-Moderate 11:20:16 [employer] CPT-86251 First Vx - Ix admin for Medicare patients 17:35:15 CDT CPT-51869 Fluzone Preservative Free Intramuscular Suspension 17:35 :15 CDT CPT-37453 Microalbumin - LAB USE ONLY 11:52:05 CDT CPT-TCMM Transitional Care Mgmt-Moderate 11:33:57 CDT CPT-18671 No Charge Offi Visit 14:11:29 CDT CPT-44376 Magnesium - LAB USE ONLY 10:45:44 CDT CPT-81000 Lipid - LAB USE ONLY 10:45:44 CDT CPT-30959 CBC - LAB USE ONLY 10:45:44 CDT CPT-50190 Venipuncture Draw Fee 10:45:43 CDT CPT-48435 Venipuncture Draw Fee 18:21:27 CDT CPT-JTINJ Asp/Joint Injection 18:38:04 CDT CPT-58544 Immunization Each Additional Inj 17:38:04 CDT CPT-52010 Immunization Single Admin 17:38:04 CDT CPT-28875 Prevnar 13 17:38:04 CDT CPT-73309 Fluzone Quadrivalent preservative free (>=3yrs.) 17:38: 04 CDT CPT-48720 No Charge Offi Visit 11:14:03 CDT CPT-85962 Chest 2V Frontal and Lat 14:00:18 CDT CPT-OV Office Visit 16:10:28 CDT CPT-JTINJ Asp/Joint Injection 09:03:57 CDT CPT-Cryo Cryotherapy 09:35:49 [employer] CPT-JTINJ Asp/Joint Injection 09:34:45 [employer] CPT-J2930 Solu Medrol 125 mg (Methyl Prednisolone Sodium Succinate) 20:37:27 CDT CPT-34914 Abx/Therapy Injection 20:37:27 CDT CPT-83575 Port a cath flush 08:15:51 CDT CPT-11596 Port a cath flush 09:54:16 CDT CPT-69820 Port a cath flush 09:38:02 CDT CPT-44058 Port a cath flush 11:00:27 [employer]
--- OUTSIDE RECORDS SUMMARY | 2017-12-29 01:26 | XMS REPORT | Clinical Summary ---
Author Author Admin, QIE Organization [facility] Address Unknown Phone Unavailable Allergies, Adverse Reactions, [...] 300.4 Active Harinder Hernandez DO Dysthymic disorder Encounter for fitting and adjustment of vascular [...] Cr David DO Pneumonia ICD-486 Inactive Harinder Shaye David DO Bacteremia ICD-790.7 Inactive Harinder Cr David DO 10/02 Clostridium difficile colitis ICD-008.45 Inactive Harinder Shaye David DO Abdominal pain, right lower quadrant ICD-789.03 Inactive Harinder Hernandez DO Needs vaccination for influenza ICD-V04.81 Inactive Harinder Hernandez DO Need for prophylactic vaccination against streptococcus pneumoniae ( Pneumococcus) ICD-V03.82 Inactive Harinder Shaye Hernandez DO Greater trochanteric bursitis, left ICD-726.5 Inactive Harinder Hernandez DO Nausea and vomiting ICD-787.01 Inactive Jae Morgan MD Diarrhea ICD-787.91 Inactive Jae Morgan MD Medication List Medication Instructions Start Date Stop Date Generic Name NDC Status Provider Patient Instruction FLUOXETINE HCL 10 MG ORAL CAPS 1 po qd for depression/anxiety FLUOXETINE HCL 00475358687 Active Harinder Hernandez DO Active VOLTAREN 1 % GEL apply q 6-8 hour to left arm as needed for pain DICLOFENAC SODIUM 58608333508 Active Harinder Hernandez DO Active LASIX 20 MG TAB 1 tablet by mouth every morning FUROSEMIDE 18477240954 Active Kortney Mccain Active POTASSIUM CHLORIDE 20 MEQ ORAL PACK 1 tab po BID POTASSIUM CHLORIDE 43387273298 Active Kortney Mccain Active ALBUTEROL SULFATE 0.083 % NEBU SOLN 1 vial neb q 4hrs for severe asthma. 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 FLUTICASONE PROPIONATE HFA 63181196155 Active Harinder Hernandez DO Active POTASSIUM CHLORIDE CR 10 MEQ CPCR 1 capsule by mouth daily POTASSIUM CHLORIDE 89860189200 Active Harinder Hernandez DO Active EPIPEN 2-BRUNA 0.3 MG/0.3ML INJ SOAJ 1 INJ NEEDED EPINEPHRINE 31451727915 Active Harinder Hernandez DO Active PREDNISONE 20 MG TAB 1 tab twice daily for 3 day, then one daily for three days PREDNISONE 28077220401 No Longer Active Harinder Hernandez DO Active PREDNISONE 20 MG TAB 1 tablet twice daily for 2 days, then 1 tablet once daily for 2 days PREDNISONE 41995953953 No Longer Active Harinder Hernandez DO Active ASMANEX 120 METERED DOSES 220 MCG/INH INH AEPB 2 puffs orally twice daily MOMETASONE FUROATE 80585270848 Active Jeri Sosa RPT,RMA Active TOPIRAMATE 25 MG TABS 1 tab po BID TOPIRAMATE 71278757365 No Longer Active Nettie Newberry APRN Active AMLODIPINE BESYLATE 5 MG ORAL TABS Take 1 tab po daily AMLODIPINE BESYLATE 08350003812 No Longer Active Nettie Newebrry APRN Active MECLIZINE HCL 25 MG TAB 1 tablet three times daily for 3 days, then 1/2 tab three times daily for 3 days. MECLIZINE HCL 44293436088 No Longer Active Nettie Newberry APRN Active AMITRIPTYLINE HCL 25 MG ORAL TABS 1 q hs prn AMITRIPTYLINE HCL 85661934510 No Longer Active Nettie Newberry APRN Active DILAUDID 2 MG ORAL TABS Take 1/2 tab po every 4 hours as needed for pain 2014 HYDROMORPHONE HCL 79967128335 No Longer Active Nettie Newberry APRN Active CLOPIDOGREL BISULFATE 75 MG ORAL TABS 1 tab by mouth once daily CLOPIDOGREL BISULFATE 80938615598 Active Harinder Hernandez DO Active ATORVASTATIN CALCIUM 10 MG ORAL TABS 1 at bedtime ATORVASTATIN CALCIUM 26806277423 Active Tawnya Pardo MA Active LOVASTATIN 40 MG ORAL TABS Take 1 tab po every hs LOVASTATIN 60167763947 No Longer Active Harinder Hernandez DO Active PREDNISONE 20 MG TAB 2 tabs daily for 4 days, 1 tab daily for 4 days, 1/2 tab daily for 4 days PREDNISONE 73872084966 No Longer Active Harinder Hernandez DO Active LEVAQUIN 500 MG ORAL TABS Take 1 tab po daily x 8 days LEVOFLOXACIN 46447898625 No Longer Active Harinder Hernandez DO Active VENTOLIN HFA 108 (90 BASE) MCG/ACT AERS 2 -4 puffs four times a day PRN 2013 ALBUTEROL SULFATE 27433263617 No Longer Active Jeri Sosa RPT,RMA Active ACEBUTOLOL HCL 200 MG CAPS 1 cap in the morning and 2 caps in the evening ACEBUTOLOL HCL 61884380301 No Longer Active Harinder Hernandez DO Active CEFDINIR 300 MG ORAL CAPS take 1 cap po bid x 10 days CEFDINIR 15909698080 No Longer Active Harinder Hernandez DO Active LOVASTATIN 40 MG TABS 1 pill by mouth nightly for cholesterol LOVASTATIN 63289010632 No Longer Active Nettie Newberry APRN Active NITROSTAT 0.4 MG SUBL 1 tab under tongueas needed for chest pain ( may take 3 total, 5 min apart, then call 911) NITROGLYCERIN 66400726801 No Longer Active Nettie Newberry APRN Active POTASSIUM CHLORIDE CR 10 MEQ CPCR 1 capsule by mouth daily 02/14 POTASSIUM CHLORIDE 13920816264 No Longer Active Nettie Newberry APRN Active TESSALON PERLES 100 MG CAP 1 to 2 tablets by mouth 3 times daily as needed for cough BENZONATATE 27302399106 No Longer Active Nettie Newberry MAHENDRA Active THEOPHYLLINE ER 200 MG ORAL [id number] Take 1 tab every 12 hours THEOPHYLLINE 86933243308 Active Kortney Mccain Active PREDNISONE 20 MG TAB 2 po qd x 5 days PREDNISONE 09648734896 No Longer Active Jae Morgan MD Active AZITHROMYCIN 250 MG TABS 2 po qd x 1 day, then 1 po qd x 4 days AZITHROMYCIN 78452286252 No Longer Active Jae Morgan MD Active PREDNISONE 20 MG TAB 1 tab twice daily for 3 day, then one daily for three days PREDNISONE 22975046148 No Longer Active Jae Morgan MD Active SINGULAIR 10 MG TABS 1 pill by mouth every evening for breathing. MONTELUKAST SODIUM 00672481403 Active Tawnya Pardo MA Active TYLENOL 325 MG TAB 3 by mouth q4h as needed ACETAMINOPHEN 94847308687 Active Harinder Hernandez DO Active POTASSIUM CHLORIDE ER 10 MEQ CR-TABS take 1 tab po daily POTASSIUM CHLORIDE 75862510563 No Longer Active Harinder Hernandez DO Active PREDNISONE 20 MG TAB 1 TID x 2 days, then 1 BID x 3 days, then 1 Daily x 3 days, then stop PREDNISONE 40760780523 No Longer Active Jillkvng Frazellor MCCRAY Active LEVAQUIN 500 MG TAB 1 tablet by mouth daily LEVOFLOXACIN 64274407277 No Longer Active Jillina Frazell MAHENDRA Active NEURONTIN 300 MG CAP 1 cap by mouth three times daily for restless leg 06/22 GABAPENTIN 42466321427 No Longer Active Harinder Hernandez DO Active BENZONATATE 100 MG CAPS 1 cap po TID PRN BENZONATATE 08157445218 No Longer Active Harinder Hernandez DO Active MONTELUKAST SODIUM 10 MG TABS 1 tab po in the evening MONTELUKAST SODIUM 26354634563 No Longer Active Harinder Hernandez DO Active MUPIROCIN 2 % OINT apply to affected area BID x 14 days MUPIROCIN 62353932898 No Longer Active Harinder Hernandez DO Active TYLENOL EXTRA STRENGTH 500 MG TABS as needed ACETAMINOPHEN 78220199870 No Longer Active Harinder Hernandez DO Active PREDNISONE 10 MG TABS 1 tab po daily PREDNISONE 72062092498 No Longer Active Harinder Hernandez DO Active PREDNISONE 20 MG TAB 2 tabs daily for 4 days, 1 tab daily for 4 days, 1/2 tab daily for 4 days PREDNISONE 69427494171 No Longer Active Harinder Hernandez DO Active AZITHROMYCIN 250 MG TABS 2 po qd x 1 day, then 1 po qd x 4 days AZITHROMYCIN 87196123415 No Longer Active Harinder Hernandez DO Active PREDNISONE 20 MG TAB 3 tabs today, then 1 tab twice daily for 3 day, then one daily for three days PREDNISONE 94268753754 No Longer Active Harinder Hernandez DO Active NIFEDIAC CC 30 MG [id number] 1 tablet daily for raynaud's syndrome NIFEDIPINE 43895022492 No Longer Active Tawnya Pardo MA Active AMBIEN 10 MG TAB 1/2 tab by mouth at bedtime as needed for sleep ZOLPIDEM TARTRATE 00710496998 Active Ciera Pimentel Active CLONAZEPAM 1 MG TABS 1 tablet at bedtime for insomnia and restless legs 09/14 CLONAZEPAM 50473971891 Active Harinder Hernandez DO Active CLONAZEPAM 0.5 MG TABS 1 tab po daily CLONAZEPAM 25121407747 No Longer Active Harinder Hernandez DO Active PREDNISONE 10 MG TAB 1 tablet daily for COPD PREDNISONE 25775672565 Active Ciera Pimentel Active PROAIR HFA 108 (90 BASE) MCG/ACT AERS 2 puffs four times a day as needed 2012 ALBUTEROL SULFATE 29199982932 Active Harinder Hernandez DO Active FLOVENT HFA 110 MCG/ACT AERO 2 puffs inhaled b.i.d. FLUTICASONE PROPIONATE HFA 05720840221 Active Kortney Mccain Active ACIPHEX 20 MG TBEC 1 tab po daily RABEPRAZOLE SODIUM 10527689594 Active Kaylah Rohith Active CLONAZEPAM 0.5 MG TABS 1 tab po daily CLONAZEPAM 0.5 MG TABS 691464 CLONAZEPAM Inactive PREDNISONE 20 MG TAB 3 tabs today, then 1 tab twice daily for 3 day, then one daily for three days PREDNISONE 20 MG TAB 416731 PREDNISONE Inactive PREDNISONE 20 MG TAB 2 tabs daily for 4 days, 1 tab daily for 4 days, 1/2 tab daily for 4 days PREDNISONE 20 MG TAB 872935 PREDNISONE Inactive PREDNISONE 10 MG TABS 1 tab po daily PREDNISONE 10 MG TABS 182318 PREDNISONE Inactive TYLENOL EXTRA STRENGTH 500 MG TABS as needed TYLENOL EXTRA STRENGTH 500 MG TABS 108233 ACETAMINOPHEN Inactive MUPIROCIN 2 % OINT apply to affected area BID x 14 days MUPIROCIN 2 % OINT 049760 MUPIROCIN Inactive MONTELUKAST SODIUM 10 MG TABS 1 tab po in the evening MONTELUKAST SODIUM 10 MG TABS 126800 MONTELUKAST SODIUM Inactive BENZONATATE 100 MG CAPS 1 cap po TID PRN BENZONATATE 100 MG CAPS 904660 BENZONATATE Inactive NEURONTIN 300 MG CAP 1 cap by mouth three times daily for restless leg 06/22 NEURONTIN 300 MG CAP 335269 GABAPENTIN Inactive LEVAQUIN 500 MG TAB 1 tablet by mouth daily LEVAQUIN 500 MG TAB 760288 LEVOFLOXACIN Inactive PREDNISONE 20 MG TAB 1 TID x 2 days, then 1 BID x 3 days, then 1 Daily x 3 days, then stop PREDNISONE 20 MG TAB 234569 PREDNISONE Inactive POTASSIUM CHLORIDE ER 10 MEQ CR-TABS take 1 tab po daily POTASSIUM CHLORIDE ER 10 MEQ CR-TABS POTASSIUM CHLORIDE Inactive PREDNISONE 20 MG TAB 1 tab twice daily for 3 day, then one daily for three days PREDNISONE 20 MG TAB 326577 PREDNISONE Inactive TESSALON PERLES 100 MG CAP 1 to 2 tablets by mouth 3 times daily as needed for cough TESSALON PERLES 100 MG CAP 685681 BENZONATATE Inactive POTASSIUM CHLORIDE CR 10 MEQ CPCR 1 capsule by mouth daily 02/14 POTASSIUM CHLORIDE CR 10 MEQ CPCR POTASSIUM CHLORIDE Inactive NITROSTAT 0.4 MG SUBL 1 tab under tongueas needed for chest pain ( may take 3 total, 5 min apart, then call 911) NITROSTAT 0.4 MG SUBL 081696 NITROGLYCERIN Inactive LOVASTATIN 40 MG TABS 1 pill by mouth nightly for cholesterol LOVASTATIN 40 MG TABS LOVASTATIN Inactive CEFDINIR 300 MG ORAL CAPS take 1 cap po bid x 10 days CEFDINIR 300 MG ORAL CAPS 20021018 CEFDINIR Inactive ACEBUTOLOL HCL 200 MG CAPS 1 cap in the morning and 2 caps in the evening ACEBUTOLOL HCL 200 MG CAPS 675744 ACEBUTOLOL HCL Inactive VENTOLIN HFA 108 (90 BASE) MCG/ACT AERS 2 -4 puffs four times a day PRN 2013 VENTOLIN HFA 108 (90 BASE) MCG/ACT AERS ALBUTEROL SULFATE Inactive LEVAQUIN 500 MG ORAL TABS Take 1 tab po daily x 8 days LEVAQUIN 500 MG ORAL TABS 161569 LEVOFLOXACIN Inactive PREDNISONE 20 MG TAB 2 tabs daily for 4 days, 1 tab daily for 4 days, 1/2 tab daily for 4 days PREDNISONE 20 MG TAB 581158 PREDNISONE Inactive LOVASTATIN 40 MG ORAL TABS Take 1 tab po every hs LOVASTATIN 40 MG ORAL TABS 220723 LOVASTATIN Inactive DILAUDID 2 MG ORAL TABS Take 1/2 tab po every 4 hours as needed for pain 2014 DILAUDID 2 MG ORAL TABS 563960 HYDROMORPHONE HCL Inactive AMITRIPTYLINE HCL 25 MG ORAL TABS 1 q hs prn AMITRIPTYLINE HCL 25 MG ORAL TABS 689565 AMITRIPTYLINE HCL Inactive MECLIZINE HCL 25 MG TAB 1 tablet three times daily for 3 days, then 1/2 tab three times daily for 3 days. MECLIZINE HCL 25 MG TAB 557271 MECLIZINE HCL Inactive AMLODIPINE BESYLATE 5 MG ORAL TABS Take 1 tab po daily AMLODIPINE BESYLATE 5 MG ORAL TABS 199173 AMLODIPINE BESYLATE Inactive TOPIRAMATE 25 MG TABS 1 tab po BID TOPIRAMATE 25 MG TABS 997820 TOPIRAMATE Inactive PREDNISONE 20 MG TAB 1 tablet twice daily for 2 days, then 1 tablet once daily for 2 days PREDNISONE 20 MG TAB 075323 PREDNISONE Inactive PREDNISONE 20 MG TAB 1 tab twice daily for 3 day, then one daily for three days PREDNISONE 20 MG TAB 391481 PREDNISONE Inactive NIFEDIPINE ER 30 MG ORAL AL47N-TRY 1 daily NIFEDIPINE ER 30 MG ORAL [id number] NIFEDIPINE Inactive AMLODIPINE BESYLATE 5 MG TABS 1 tablet by mouth daily AMLODIPINE BESYLATE 5 MG TABS 261843 AMLODIPINE BESYLATE Inactive AZITHROMYCIN 250 MG TABS 2 po qd x 1 day, then 1 po qd x 4 days AZITHROMYCIN 250 MG TABS 3431169 AZITHROMYCIN Inactive AZITHROMYCIN 250 MG TABS 2 po qd x 1 day, then 1 po qd x 4 days AZITHROMYCIN 250 MG TABS 5699091 AZITHROMYCIN Inactive PREDNISONE 20 MG TAB 2 po qd x 5 days PREDNISONE 20 MG TAB 263460 PREDNISONE Inactive Vital Signs Date Name Value [...] Panel - Chemistry sodium, serum 137 mmol/L 372-563 1647/01/03 urea nitrogen, blood 8 mg/dL 7-18 creatinine, serum 0.82 mg/dL 0.55-1.30 potassium, serum 3.4 mmol/L 3.5-5.2 chloride, serum 102 mmol/L 98-107 carbon dioxide, venous blood 29.2 mmol/L 21.0-32.0 blood glucose 87 mg/dL 65-110 calcium, serum 8.5 mg/dL 8.5-10.1 Lab Report: CBC - Hematology mean corpuscular hemoglobin, RBC 32.8 pg 27.0-31.2 mean corpuscular hemoglobin concentration, RBC 34.3 G/DL % 31.8- 35.4 red blood cell distribution width 13.9 % 11.6-14.8 platelet count 182 10^3/MM^3 10*3/mm3 590-725 0511/08/08 leukocyte count, blood 5.6 10^3/MM^3 10*3/mm3 4.6-10.2 erythrocyte (RBC) count 4.09 10^6/MM^3 10*6/mm3 4.04-5.48 hemoglobin, blood 13.4 g/dL 12.0-16.0 hematocrit, blood 39.2 % 36.0-46.0 mean corpuscular volume, RBC 96 fL 80-97 Lab Report: Lipid Panel, Comp. Metabolic Panel, [...] 0.40 mg/dL 0.00-1.00 sodium, serum 142 mmol/L 945-420 0874/08/08 LDL cholesterol, serum 96 mg/dL 0-130 HDL [...] 10.0-20.0 Encounters Code Encounter Date Provider Facility CPT-95023 Level 4 Est. Patient 09:15:13 CDT Harinder Cr [facility] CPT-15811 Level 3 Est. Patient 11:51:58 CDT Harinder Cr [facility] CPT-19680 Level 3 Est. Patient 11:30:05 CDT [facility] CPT-96374 Level 4 Est. Patient 10:19:23 CDT [facility] CPT-60531 Level 3 Est. Patient 09:58:58 CDT [facility] CPT-30045 Level 3 Est. Patient 12:37:21 CDT [facility] CPT-68868 Level 3 Est. Patient 18:37:17 CDT [facility] CPT-58209 Level 4 Est. Patient 11:15:54 CDT Nettie Newberry APRN [facility] CPT-34366 Level 3 Est. Patient 16:42:24 CDT Harinder Hernandez [facility] CPT-03601 Level 3 Est. Patient 15:03:36 CDT Harinder Hernandez [facility] CPT-27249 Level 3 Est. Patient 15:03:20 CDT Harinder Hernandez [facility] CPT-26094 Level 3 Est. Patient 12:14:34 CDT Harinder Hernandez [facility] CPT-20860 Level 3 Est. Patient 13:47:15 CDT Harinder Hernandez [facility] CPT-42961 Level 3 Est. Patient 14:08:24 CDT Harinder Hernandez [facility] CPT-47562 Level 3 Est. Patient 10:07:15 CDT Harinder Hernandez [facility] CPT-73173 Level 3 Est. Patient 10:06:59 CDT Harinder Hernandez [facility] CPT-80463 Level 3 Est. Patient 15:53:29 CDT Jae Morgan MD [facility] CPT-24978 Level 3 Est. Patient 17:19:04 CDT Harinder Hernandez [facility] CPT-91306 Level 3 Est. Patient 11:13:01 CDT Harinder Cr David [facility] CPT-90958 Level 3 Est. Patient 09:03:58 CDT Harinder Hernandez [facility] CPT-74117 Level 3 Est. Patient 14:46:45 [employer] Harinder Hernandez [facility] CPT-82686 Level 3 Est. Patient 09:35:49 [employer] Harinder Hernandez [facility] CPT-15968 Level 3 Est. Patient 09:29:37 [employer] Harinder Hernandez [facility] CPT-47380 Level 3 Est. Patient 15:51:07 CDT Harinder Hernandez [facility] CPT-04197 Level 3 Est. Patient 18:13:13 CDT Harinder Hernandez [facility] CPT-36120 Level 3 Est. Patient 10:44:19 CDT Harinder Hernandez [facility] CPT-18321 Level 4 Est. Patient 10:07:19 [employer] Harinder Hernandez [facility] CPT-94966 Level 3 Est. Patient 15:59:32 [employer] Harinder Cr [facility] Procedures Code Procedure Name Date Entry Date Standard Description CPT-77746 Hip, complete, 2-3 views - XRAY USE ONLY 10:28:40 CDT CPT-35344 BMP - LAB USE ONLY 16:45:09 [employer] CPT-52045 Port a cath flush 12:00:13 [employer] CPT-TCMM Transitional Care Mgmt-Moderate 11:20:16 [employer] CPT-11962 First Vx - Ix admin for Medicare patients 17:35:15 CDT CPT-32656 Fluzone Preservative Free Intramuscular Suspension 17:35 :15 CDT CPT-85163 Microalbumin - LAB USE ONLY 11:52:05 CDT CPT-TCMM Transitional Care Mgmt-Moderate 11:33:57 CDT CPT-81101 No Charge Offi Visit 14:11:29 CDT CPT-25469 Magnesium - LAB USE ONLY 10:45:44 CDT CPT-74917 Lipid - LAB USE ONLY 10:45:44 CDT CPT-89885 CBC - LAB USE ONLY 10:45:44 CDT CPT-51302 Venipuncture Draw Fee 10:45:43 CDT CPT-64961 Venipuncture Draw Fee 18:21:27 CDT CPT-JTINJ Asp/Joint Injection 18:38:04 CDT CPT-69704 Immunization Each Additional Inj 17:38:04 CDT CPT-13326 Immunization Single Admin 17:38:04 CDT CPT-30344 Prevnar 13 17:38:04 CDT CPT-76698 Fluzone Quadrivalent preservative free (>=3yrs.) 17:38: 04 CDT CPT-25032 No Charge Offi Visit 11:14:03 CDT CPT-55933 Chest 2V Frontal and Lat 14:00:18 CDT CPT-OV Office Visit 16:10:28 CDT CPT-JTINJ Asp/Joint Injection 09:03:57 CDT CPT-Cryo Cryotherapy 09:35:49 [employer] CPT-JTINJ Asp/Joint Injection 09:34:45 [employer] CPT-J2930 Solu Medrol 125 mg (Methyl Prednisolone Sodium Succinate) 20:37:27 CDT CPT-10430 Abx/Therapy Injection 20:37:27 CDT CPT-55944 Port a cath flush 08:15:51 CDT CPT-55497 Port a cath flush 09:54:16 CDT CPT-15097 Port a cath flush 09:38:02 CDT CPT-45273 Port a cath flush 11:00:27 [employer]
--- OUTSIDE RECORDS SUMMARY | 2017-12-29 01:27 | XMS REPORT | Clinical Summary ---
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 NIFEDIPINE 47805207582 Active Harinder Hernandez DO Active AMLODIPINE BESYLATE 5 MG TABS 1 tablet by mouth daily AMLODIPINE BESYLATE 35306062548 No Longer Active Harinder Hernandez DO Active TOPAMAX 25 MG ORAL TABS 1 tab po BID TOPIRAMATE 59300963990 Active Kortney Mccain Active FLUTICASONE PROPIONATE 50 MCG/ACT SUSP 2 sprays per nostril daily PRN Allergies FLUTICASONE PROPIONATE 36840864097 Active Kortney Mccain Active NIFEDIPINE ER 30 MG ORAL [id number] 1 daily NIFEDIPINE 11382920123 No Longer Active Harinder Hernandez DO Active POTASSIUM CHLORIDE 20 MEQ ORAL PACK Take 1 tablet by mouth daily POTASSIUM CHLORIDE 62330204361 Active Ciera Pimentel Active FLOVENT HFA 110 MCG/ACT AERO 2 puffs inhaled b.i.d. FLUTICASONE PROPIONATE HFA 74231905857 Active Harinder Hernandez DO Active POTASSIUM CHLORIDE CR 10 MEQ CPCR 1 capsule by mouth daily POTASSIUM CHLORIDE 03026661403 Active Harinder Hernandez DO Active EPIPEN 2-BRUNA 0.3 MG/0.3ML INJ SOAJ 1 INJ NEEDED EPINEPHRINE 12824162684 Active Harinder Hernandez DO Active PREDNISONE 20 MG TAB 1 tab twice daily for 3 day, then one daily for three days PREDNISONE 19389700313 No Longer Active Harinder Hernandez DO Active PREDNISONE 20 MG TAB 1 tablet twice daily for 2 days, then 1 tablet once daily for 2 days PREDNISONE 10803278092 No Longer Active Harinder Hernandez DO Active ASMANEX 120 METERED DOSES 220 MCG/INH INH AEPB 2 puffs orally twice daily MOMETASONE FUROATE 58470284127 Active Jeri Sosa RPT,RMA Active TOPIRAMATE 25 MG TABS 1 tab po BID TOPIRAMATE 44105296896 No Longer Active Nettie Newberry APRN Active AMLODIPINE BESYLATE 5 MG ORAL TABS Take 1 tab po daily AMLODIPINE BESYLATE 00664367170 No Longer Active Nettie Newberry APRN Active MECLIZINE HCL 25 MG TAB 1 tablet three times daily for 3 days, then 1/2 tab three times daily for 3 days. MECLIZINE HCL 04478881076 No Longer Active Nettie Newberry APRN Active AMITRIPTYLINE HCL 25 MG ORAL TABS 1 q hs prn AMITRIPTYLINE HCL 18405674021 No Longer Active Nettie Newberry APRN Active DILAUDID 2 MG ORAL TABS Take 1/2 tab po every 4 hours as needed for pain 2014 HYDROMORPHONE HCL 99446072245 No Longer Active Nettie Newberry APRN Active CLOPIDOGREL BISULFATE 75 MG ORAL TABS 1 tab by mouth once daily CLOPIDOGREL BISULFATE 17402331216 Active Harinder Hernandez DO Active ATORVASTATIN CALCIUM 10 MG ORAL TABS 1 at bedtime ATORVASTATIN CALCIUM 66636790861 Active Tawnya Pardo MA Active LOVASTATIN 40 MG ORAL TABS Take 1 tab po every hs LOVASTATIN 07444790822 No Longer Active Harinder Hernandez DO Active PREDNISONE 20 MG TAB 2 tabs daily for 4 days, 1 tab daily for 4 days, 1/2 tab daily for 4 days PREDNISONE 25596108512 No Longer Active Harinder Hernandez DO Active LEVAQUIN 500 MG ORAL TABS Take 1 tab po daily x 8 days LEVOFLOXACIN 14533590142 No Longer Active Harinder Hernandez DO Active VENTOLIN HFA 108 (90 BASE) MCG/ACT AERS 2 -4 puffs four times a day PRN 2013 ALBUTEROL SULFATE 21965227604 No Longer Active Jeri Sosa RPT,RMA Active ACEBUTOLOL HCL 200 MG CAPS 1 cap in the morning and 2 caps in the evening ACEBUTOLOL HCL 36608980315 No Longer Active Harinder Hernandez DO Active CEFDINIR 300 MG ORAL CAPS take 1 cap po bid x 10 days CEFDINIR 23985695051 No Longer Active Harinder Hernandez DO Active LOVASTATIN 40 MG TABS 1 pill by mouth nightly for cholesterol LOVASTATIN 33481980779 No Longer Active Nettie Newberry APRN Active NITROSTAT 0.4 MG SUBL 1 tab under tongueas needed for chest pain ( may take 3 total, 5 min apart, then call 911) NITROGLYCERIN 86215220729 No Longer Active Nettie Newberry APRN Active POTASSIUM CHLORIDE CR 10 MEQ CPCR 1 capsule by mouth daily 02/14 POTASSIUM CHLORIDE 70448391775 No Longer Active Nettie Newberry APRN Active TESSALON PERLES 100 MG CAP 1 to 2 tablets by mouth 3 times daily as needed for cough BENZONATATE 89265942971 No Longer Active Nettie Newberry APRN Active THEOPHYLLINE ER 200 MG ORAL [id number] Take 1 tab every 12 hours THEOPHYLLINE 24432182968 Active Tawnya Pardo MA Active PREDNISONE 20 MG TAB 2 po qd x 5 days PREDNISONE 31589413034 No Longer Active Jae Morgan MD Active AZITHROMYCIN 250 MG TABS 2 po qd x 1 day, then 1 po qd x 4 days AZITHROMYCIN 05808285223 No Longer Active Jae Morgan MD Active PREDNISONE 20 MG TAB 1 tab twice daily for 3 day, then one daily for three days PREDNISONE 15359033247 No Longer Active Jae Morgan MD Active SINGULAIR 10 MG TABS 1 pill by mouth every evening for breathing. MONTELUKAST SODIUM 28565861526 Active Tawnya Pardo MA Active TYLENOL 325 MG TAB 3 by mouth q4h as needed ACETAMINOPHEN 60752770981 Active Harinder Hernandez DO Active POTASSIUM CHLORIDE ER 10 MEQ CR-TABS take 1 tab po daily POTASSIUM CHLORIDE 69097645707 No Longer Active Harinder Hernandez DO Active PREDNISONE 20 MG TAB 1 TID x 2 days, then 1 BID x 3 days, then 1 Daily x 3 days, then stop PREDNISONE 91914112650 No Longer Active Jillina Frazell [employer] Active LEVAQUIN 500 MG TAB 1 tablet by mouth daily LEVOFLOXACIN 77899565232 No Longer Active Jillina Frazell [employer]AT[employer]ER Active NEURONTIN 300 MG CAP 1 cap by mouth three times daily for restless leg 06/22 GABAPENTIN 38347658595 No Longer Active Harinder Hernandez DO Active BENZONATATE 100 MG CAPS 1 cap po TID PRN BENZONATATE 10972036232 No Longer Active Harinder Hernandez DO Active MONTELUKAST SODIUM 10 MG TABS 1 tab po in the evening MONTELUKAST SODIUM 99431800778 No Longer Active Harinder Hernadnez DO Active MUPIROCIN 2 % OINT apply to affected area BID x 14 days MUPIROCIN 81658524300 No Longer Active Harinder Hernandez DO Active TYLENOL EXTRA STRENGTH 500 MG TABS as needed ACETAMINOPHEN 22419743103 No Longer Active Harinder Hernandez DO Active PREDNISONE 10 MG TABS 1 tab po daily PREDNISONE 86152701073 No Longer Active Harinder Hernandez DO Active PREDNISONE 20 MG TAB 2 tabs daily for 4 days, 1 tab daily for 4 days, 1/2 tab daily for 4 days PREDNISONE 81714686045 No Longer Active Harinder Hernandez DO Active AZITHROMYCIN 250 MG TABS 2 po qd x 1 day, then 1 po qd x 4 days AZITHROMYCIN 29422566306 No Longer Active Harinder Hernandez DO Active PREDNISONE 20 MG TAB 3 tabs today, then 1 tab twice daily for 3 day, then one daily for three days PREDNISONE 15492609214 No Longer Active Harinder Hernandez DO Active NIFEDIAC CC 30 MG [id number] 1 tablet daily for raynaud's syndrome NIFEDIPINE 64921244960 No Longer Active Tawnya Pardo MA Active AMBIEN 10 MG TAB 1/2 tab by mouth at bedtime as needed for sleep ZOLPIDEM TARTRATE 53877161788 Active Kortney Mccain Active CLONAZEPAM 1 MG TABS 1 tablet at bedtime for insomnia and restless legs 09/14 CLONAZEPAM 52740225830 Active Harinder Hernandez DO Active CLONAZEPAM 0.5 MG TABS 1 tab po daily CLONAZEPAM 70118682402 No Longer Active Harinder Hernandez DO Active PREDNISONE 10 MG TAB 1 tablet daily for COPD PREDNISONE 58301528887 Active Ciera Pimentel Active PROAIR HFA 108 (90 BASE) MCG/ACT AERS 2 puffs four times a day as needed 2012 ALBUTEROL SULFATE 43083721605 Active Harinder Hernandez DO Active FLOVENT HFA 110 MCG/ACT AERO 2 puffs inhaled b.i.d. FLUTICASONE PROPIONATE HFA 29479888726 Active Kortney Mccain Active ACIPHEX 20 MG TBEC 1 tab po daily RABEPRAZOLE SODIUM 14356257548 Active Kaylah Newberry Active CLONAZEPAM 0.5 MG TABS 1 tab po daily CLONAZEPAM 0.5 MG TABS 595468 CLONAZEPAM Inactive PREDNISONE 20 MG TAB 3 tabs today, then 1 tab twice daily for 3 day, then one daily for three days PREDNISONE 20 MG TAB 349526 PREDNISONE Inactive PREDNISONE 20 MG TAB 2 tabs daily for 4 days, 1 tab daily for 4 days, 1/2 tab daily for 4 days PREDNISONE 20 MG TAB 597149 PREDNISONE Inactive PREDNISONE 10 MG TABS 1 tab po daily PREDNISONE 10 MG TABS 464579 PREDNISONE Inactive TYLENOL EXTRA STRENGTH 500 MG TABS as needed TYLENOL EXTRA STRENGTH 500 MG TABS 848686 ACETAMINOPHEN Inactive MUPIROCIN 2 % OINT apply to affected area BID x 14 days MUPIROCIN 2 % OINT 718637 MUPIROCIN Inactive MONTELUKAST SODIUM 10 MG TABS 1 tab po in the evening MONTELUKAST SODIUM 10 MG TABS 20010818 MONTELUKAST SODIUM Inactive BENZONATATE 100 MG CAPS 1 cap po TID PRN BENZONATATE 100 MG CAPS 565592 BENZONATATE Inactive NEURONTIN 300 MG CAP 1 cap by mouth three times daily for restless leg 06/22 NEURONTIN 300 MG CAP 654687 GABAPENTIN Inactive LEVAQUIN 500 MG TAB 1 tablet by mouth daily LEVAQUIN 500 MG TAB 812106 LEVOFLOXACIN Inactive PREDNISONE 20 MG TAB 1 TID x 2 days, then 1 BID x 3 days, then 1 Daily x 3 days, then stop PREDNISONE 20 MG TAB 639021 PREDNISONE Inactive POTASSIUM CHLORIDE ER 10 MEQ CR-TABS take 1 tab po daily POTASSIUM CHLORIDE ER 10 MEQ CR-TABS POTASSIUM CHLORIDE Inactive PREDNISONE 20 MG TAB 1 tab twice daily for 3 day, then one daily for three days PREDNISONE 20 MG TAB 586661 PREDNISONE Inactive TESSALON PERLES 100 MG CAP 1 to 2 tablets by mouth 3 times daily as needed for cough TESSALON PERLES 100 MG CAP 359336 BENZONATATE Inactive POTASSIUM CHLORIDE CR 10 MEQ CPCR 1 capsule by mouth daily 02/14 POTASSIUM CHLORIDE CR 10 MEQ CPCR POTASSIUM CHLORIDE Inactive NITROSTAT 0.4 MG SUBL 1 tab under tongueas needed for chest pain ( may take 3 total, 5 min apart, then call 911) NITROSTAT 0.4 MG SUBL 842722 NITROGLYCERIN Inactive LOVASTATIN 40 MG TABS 1 pill by mouth nightly for cholesterol LOVASTATIN 40 MG TABS 986065 LOVASTATIN Inactive CEFDINIR 300 MG ORAL CAPS take 1 cap po bid x 10 days CEFDINIR 300 MG ORAL CAPS 624244 CEFDINIR Inactive ACEBUTOLOL HCL 200 MG CAPS 1 cap in the morning and 2 caps in the evening ACEBUTOLOL HCL 200 MG CAPS 975327 ACEBUTOLOL HCL Inactive VENTOLIN HFA 108 (90 BASE) MCG/ACT AERS 2 -4 puffs four times a day PRN 2013 VENTOLIN HFA 108 (90 BASE) MCG/ACT AERS ALBUTEROL SULFATE Inactive LEVAQUIN 500 MG ORAL TABS Take 1 tab po daily x 8 days LEVAQUIN 500 MG ORAL TABS 894220 LEVOFLOXACIN Inactive PREDNISONE 20 MG TAB 2 tabs daily for 4 days, 1 tab daily for 4 days, 1/2 tab daily for 4 days PREDNISONE 20 MG TAB 149598 PREDNISONE Inactive LOVASTATIN 40 MG ORAL TABS Take 1 tab po every hs LOVASTATIN 40 MG ORAL TABS 151340 LOVASTATIN Inactive DILAUDID 2 MG ORAL TABS Take 1/2 tab po every 4 hours as needed for pain 2014 DILAUDID 2 MG ORAL TABS 573704 HYDROMORPHONE HCL Inactive AMITRIPTYLINE HCL 25 MG ORAL TABS 1 q hs prn AMITRIPTYLINE HCL 25 MG ORAL TABS 536561 AMITRIPTYLINE HCL Inactive MECLIZINE HCL 25 MG TAB 1 tablet three times daily for 3 days, then 1/2 tab three times daily for 3 days. MECLIZINE HCL 25 MG TAB 566329 MECLIZINE HCL Inactive AMLODIPINE BESYLATE 5 MG ORAL TABS Take 1 tab po daily AMLODIPINE BESYLATE 5 MG ORAL TABS 422179 AMLODIPINE BESYLATE Inactive TOPIRAMATE 25 MG TABS 1 tab po BID TOPIRAMATE 25 MG TABS 742938 TOPIRAMATE Inactive PREDNISONE 20 MG TAB 1 tablet twice daily for 2 days, then 1 tablet once daily for 2 days PREDNISONE 20 MG TAB 871751 PREDNISONE Inactive PREDNISONE 20 MG TAB 1 tab twice daily for 3 day, then one daily for three days PREDNISONE 20 MG TAB 085008 PREDNISONE Inactive NIFEDIPINE ER 30 MG ORAL [id number] 1 daily NIFEDIPINE ER 30 MG ORAL [id number] NIFEDIPINE Inactive AMLODIPINE BESYLATE 5 MG TABS 1 tablet by mouth daily AMLODIPINE BESYLATE 5 MG TABS 958037 AMLODIPINE BESYLATE Inactive AZITHROMYCIN 250 MG TABS 2 po qd x 1 day, then 1 po qd x 4 days AZITHROMYCIN 250 MG TABS 2844595 AZITHROMYCIN Inactive AZITHROMYCIN 250 MG TABS 2 po qd x 1 day, then 1 po qd x 4 days AZITHROMYCIN 250 MG TABS 6726867 AZITHROMYCIN Inactive PREDNISONE 20 MG TAB 2 po qd x 5 days PREDNISONE 20 MG TAB 170147 PREDNISONE Inactive Vital Signs Date Name Value [...] Panel - Chemistry sodium, serum 137 mmol/L 425-414 8404/01/03 potassium, serum 3.4 mmol/L 3.5-5.2 chloride, serum [...] Magnesium - Chemistry cholesterol, serum 180 mg/dL 625-128 2902/08/08 triglyceride, serum, fasting 92 mg/dL 30-200 HDL cholesterol, serum 66 mg/dL 32-96 LDL cholesterol, serum 96 mg/dL 0-130 sodium, serum 142 mmol/L 725-144 4758/08/08 carbon dioxide, venous blood 27.4 mmol/L 21.0-32.0 [...] 10.0-20.0 Encounters Code Encounter Date Provider Facility CPT-78200 Level 4 Est. Patient 10:19:23 CDT Harinder Cr [facility] CPT-18935 Level 3 Est. Patient 09:58:58 CDT Harinder Cr [facility] CPT-04111 Level 3 Est. Patient 12:37:21 CDT Harinder Cr [facility] CPT-13220 Level 3 Est. Patient 18:37:17 CDT Harinder Cr [facility] CPT-86453 Level 4 Est. Patient 11:15:54 CDT Nettie Newberry [facility] CPT-35501 Level 3 Est. Patient 16:42:24 CDT Harinder Cr [facility] CPT-70004 Level 3 Est. Patient 15:03:36 CDT Harinder Cr [facility] CPT-70703 Level 3 Est. Patient 15:03:20 CDT Harinder Cr [facility] CPT-31676 Level 3 Est. Patient 12:14:34 CDT Harinder Hernandez [facility] CPT-90847 Level 3 Est. Patient 13:47:15 CDT Harinder Hernandez [facility] CPT-07591 Level 3 Est. Patient 14:08:24 CDT Harinder Hernandez [facility] CPT-84934 Level 3 Est. Patient 10:07:15 CDT Harinder Hernandez [facility] CPT-79780 Level 3 Est. Patient 10:06:59 CDT Harinder Hernandez [facility] CPT-66772 Level 3 Est. Patient 15:53:29 CDT Jae Morgan [facility] CPT-47173 Level 3 Est. Patient 17:19:04 CDT Harinder Hernandez [facility] CPT-90070 Level 3 Est. Patient 11:13:01 CDT Harinder Hernandez [facility] CPT-14700 Level 3 Est. Patient 09:03:58 CDT Harinder Hernandez [facility] CPT-31717 Level 3 Est. Patient 14:46:45 SPINNER CAP FRAME Harinder Hernandez [facility] CPT-23428 Level 3 Est. Patient 09:35:49 SPINNER CAP FRAME Harinder Hernandez [facility] CPT-91444 Level 3 Est. Patient 09:29:37 SPINNER CAP FRAME Harinder Hernandez [facility] CPT-17739 Level 3 Est. Patient 15:51:07 CDT Harinder Hernandez [facility] CPT-26285 Level 3 Est. Patient 18:13:13 CDT Harinder Shaye Hernandez [facility] CPT-26266 Level 3 Est. Patient 10:44:19 CDT Harinder Cr David [facility] CPT-74309 Level 4 Est. Patient 10:07:19 SPINNER CAP FRAME Harinder Hernandez [facility] CPT-30727 Level 3 Est. Patient 15:59:32 SPINNER CAP FRAME Harinder Cr [facility] Procedures Code Procedure Name Date Entry Date Standard Description CPT-68226 Hip, complete, 2-3 views - XRAY USE ONLY 10:28:40 CDT CPT-29729 BMP - LAB USE ONLY 16:45:09 SPINNER CAP FRAME CPT-93598 Port a cath flush 12:00:13 SPINNER CAP FRAME CPT-TCMM Transitional Care Mgmt-Moderate 11:20:16 SPINNER CAP FRAME CPT-41518 First Vx - Ix admin for Medicare patients 17:35:15 CDT CPT-47317 Fluzone Preservative Free Intramuscular Suspension 17:35 :15 CDT CPT-20315 Microalbumin - LAB USE ONLY 11:52:05 CDT CPT-TCMM Transitional Care Mgmt-Moderate 11:33:57 CDT CPT-50228 No Charge Offi Visit 14:11:29 CDT CPT-65667 Magnesium - LAB USE ONLY 10:45:44 CDT CPT-73359 Lipid - LAB USE ONLY 10:45:44 CDT CPT-74059 CBC - LAB USE ONLY 10:45:44 CDT CPT-46134 Venipuncture Draw Fee 10:45:43 CDT CPT-37836 Venipuncture Draw Fee 18:21:27 CDT CPT-JTINJ Asp/Joint Injection 18:38:04 CDT CPT-79490 Immunization Each Additional Inj 17:38:04 CDT CPT-60445 Immunization Single Admin 17:38:04 CDT CPT-53469 Prevnar 13 17:38:04 CDT CPT-25032 Fluzone Quadrivalent preservative free (>=3yrs.) 17:38: 04 CDT CPT-31716 No Charge Offi Visit 11:14:03 CDT CPT-86839 Chest 2V Frontal and Lat 14:00:18 CDT CPT-OV Office Visit 16:10:28 CDT CPT-JTINJ Asp/Joint Injection 09:03:57 CDT CPT-Cryo Cryotherapy 09:35:49 SPINNER CAP FRAME CPT-JTINJ Asp/Joint Injection 09:34:45 SPINNER CAP FRAME CPT-J2930 Solu Medrol 125 mg (Methyl Prednisolone Sodium Succinate) 20:37:27 CDT CPT-84909 Abx/Therapy Injection 20:37:27 CDT CPT-59150 Port a cath flush 08:15:51 CDT CPT-97067 Port a cath flush 09:54:16 CDT CPT-10034 Port a cath flush 09:38:02 CDT CPT-53951 Port a cath flush 11:00:27 SPINNER CAP FRAME
--- OUTSIDE RECORDS SUMMARY | 2017-12-29 01:28 | XMS REPORT | Clinical Summary ---
Author Author Admin, QIE Organization [facility] Address Unknown Phone Unavailable Allergies, [...] Harinder Hernandez DO DOXYCYCLINE Critical Active Harinder Hernnadez DO CODEINE Critical Active Harinder Hernandez DO BENADRYL Critical Active Harinder Hernandez DO BACLOFEN Critical Active Harinder Hernandez DO ASA Critical Active Harinder Hernandez DO PHENERGAN Critical Active Harinder Hrenandez DO VALIUM Critical Active Harinder Hernandez DO [...] elsewhere classified Actinic keratosis 702.0 Active Harinder eHrnandez DO Actinic keratosis COPD, acute exacerbation 491.21 [...] Raynaud's syndrome Edema leg 782.3 Active Harinder Hernadnez DO Edema Tendonitis 726.90 Active Harinder Hernandez [...] TAB 1 tablet by mouth daily SPIRONOLACTONE 16544147074 Prince Pimentel Active POTASSIUM CHLORIDE CR 10 MEQ CPCR 1 capsule BID POTASSIUM CHLORIDE 56618622352 Prince Mccain Active FLUOXETINE HCL 10 MG ORAL CAPS 1 po qd for depression/anxiety FLUOXETINE HCL 19602661537 Active Harinder Hernandez DO Active VOLTAREN 1 % GEL apply q 6-8 hour to left arm as needed for pain DICLOFENAC SODIUM 74431675928 Prince Hernandez DO Active LASIX 20 MG TAB 1 tablet by mouth every morning FUROSEMIDE 19289641037 Prince Mccain Active POTASSIUM CHLORIDE 20 MEQ ORAL PACK 1 tab po BID POTASSIUM CHLORIDE 33446118586 Prince Mccain Active ALBUTEROL SULFATE 0.083 % NEBU SOLN 1 vial neb q 4hrs for severe asthma. imperative to have this agent ALBUTEROL SULFATE 20496104934 Prince Pimentel Active NIFEDIAC CC 30 MG [id number] 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 NIFEDIPINE 70579048958 Active Harinder Hernandez DO Active AMLODIPINE BESYLATE 5 MG TABS 1 tablet by mouth daily AMLODIPINE BESYLATE 63034712714 No Longer Active Harinder Hernandez DO Active TOPAMAX 25 MG ORAL TABS 1 tab po BID TOPIRAMATE 65228547351 Active Kortney Mccain Active FLUTICASONE PROPIONATE 50 MCG/ACT SUSP 2 sprays per nostril daily PRN Allergies FLUTICASONE PROPIONATE 38222209658 Active Kortney Mccain Active NIFEDIPINE ER 30 MG ORAL [id number] 1 daily NIFEDIPINE 54317605012 No Longer Active Harinder Hernandez DO Active FLOVENT HFA 110 MCG/ACT AERO 2 puffs inhaled b.i.d. FLUTICASONE PROPIONATE HFA 83755705474 Active Harinder Hernandez DO Active EPIPEN 2-BRUNA 0.3 MG/0.3ML INJ SOAJ 1 INJ NEEDED EPINEPHRINE 67589423444 Active Harinder Hernandez DO Active PREDNISONE 20 MG TAB 1 tab twice daily for 3 day, then one daily for three days PREDNISONE 93692717359 No Longer Active Harinder Hernandez DO Active PREDNISONE 20 MG TAB 1 tablet twice daily for 2 days, then 1 tablet once daily for 2 days PREDNISONE 54611613877 No Longer Active Harinder Hernandez DO Active ASMANEX 120 METERED DOSES 220 MCG/INH INH AEPB 2 puffs orally twice daily MOMETASONE FUROATE 82938887496 Active Jeri Sosa LPN Active TOPIRAMATE 25 MG TABS 1 tab po BID TOPIRAMATE 97523401936 No Longer Active Nettie Newberry APRN Active AMLODIPINE BESYLATE 5 MG ORAL TABS Take 1 tab po daily AMLODIPINE BESYLATE 31728383574 No Longer Active Nettie Newberry APRN Active MECLIZINE HCL 25 MG TAB 1 tablet three times daily for 3 days, then 1/2 tab three times daily for 3 days. MECLIZINE HCL 88560517044 No Longer Active Nettie Newberry APRN Active AMITRIPTYLINE HCL 25 MG ORAL TABS 1 q hs prn AMITRIPTYLINE HCL 17639962082 No Longer Active Nettie Newberry APRN Active DILAUDID 2 MG ORAL TABS Take 1/2 tab po every 4 hours as needed for pain 2014 HYDROMORPHONE HCL 55007031366 No Longer Active Nettie Newberry APRN Active CLOPIDOGREL BISULFATE 75 MG ORAL TABS 1 tab by mouth once daily CLOPIDOGREL BISULFATE 95070172438 Active Harinder Hernandez DO Active ATORVASTATIN CALCIUM 10 MG ORAL TABS 1 at bedtime ATORVASTATIN CALCIUM 59542795620 Active Tawnya Pardo MA Active LOVASTATIN 40 MG ORAL TABS Take 1 tab po every hs LOVASTATIN 80282948427 No Longer Active Harinder Hernandez DO Active PREDNISONE 20 MG TAB 2 tabs daily for 4 days, 1 tab daily for 4 days, 1/2 tab daily for 4 days PREDNISONE 06192857541 No Longer Active Harinder Hernandez DO Active LEVAQUIN 500 MG ORAL TABS Take 1 tab po daily x 8 days LEVOFLOXACIN 04503240537 No Longer Active Harinder Hernandez DO Active VENTOLIN HFA 108 (90 BASE) MCG/ACT AERS 2 -4 puffs four times a day PRN 2013 ALBUTEROL SULFATE 01646062535 No Longer Active Jeri Sosa LPN Active ACEBUTOLOL HCL 200 MG CAPS 1 cap in the morning and 2 caps in the evening ACEBUTOLOL HCL 32859978668 No Longer Active Harinder Hernandez DO Active CEFDINIR 300 MG ORAL CAPS take 1 cap po bid x 10 days CEFDINIR 72948066717 No Longer Active Harinder Hernandez DO Active LOVASTATIN 40 MG TABS 1 pill by mouth nightly for cholesterol LOVASTATIN 06227957906 No Longer Active Nettie Newberry APRN Active NITROSTAT 0.4 MG SUBL 1 tab under tongueas needed for chest pain ( may take 3 total, 5 min apart, then call 911) NITROGLYCERIN 14115099309 No Longer Active Nettie Newberry MAHENDRA Active POTASSIUM CHLORIDE CR 10 MEQ CPCR 1 capsule by mouth daily 02/14 POTASSIUM CHLORIDE 02268038419 No Longer Active Nettie Newberry MAHENDRA Active TESSALON PERLES 100 MG CAP 1 to 2 tablets by mouth 3 times daily as needed for cough BENZONATATE 68809473282 No Longer Active Nettie Newberry MAHENDRA Active THEOPHYLLINE ER 200 MG ORAL [id number] Take 1 tab every 12 hours THEOPHYLLINE 34842044507 Active Kortney Mccain Active PREDNISONE 20 MG TAB 2 po qd x 5 days PREDNISONE 47988942522 No Longer Active Jae Morgan MD Active AZITHROMYCIN 250 MG TABS 2 po qd x 1 day, then 1 po qd x 4 days AZITHROMYCIN 09773206123 No Longer Active Jae Morgan MD Active PREDNISONE 20 MG TAB 1 tab twice daily for 3 day, then one daily for three days PREDNISONE 15575163213 No Longer Active Jae Morgan MD Active SINGULAIR 10 MG TABS 1 pill by mouth every evening for breathing. MONTELUKAST SODIUM 29731666174 Active Tawnya Pardo MA Active TYLENOL 325 MG TAB 3 by mouth q4h as needed ACETAMINOPHEN 11177697186 Active Harinder Hernandez DO Active POTASSIUM CHLORIDE ER 10 MEQ CR-TABS take 1 tab po daily POTASSIUM CHLORIDE 65028335788 No Longer Active Harinder Hernandez DO Active PREDNISONE 20 MG TAB 1 TID x 2 days, then 1 BID x 3 days, then 1 Daily x 3 days, then stop PREDNISONE 68014771111 No Longer Active John Montemayor APRN Active LEVAQUIN 500 MG TAB 1 tablet by mouth daily LEVOFLOXACIN 56512305739 No Longer Active Jillina Frazell [employer]PERATIONS FORESTER Active NEURONTIN 300 MG CAP 1 cap by mouth three times daily for restless leg 06/22 GABAPENTIN 32660276126 No Longer Active Harinder Hernandez DO Active BENZONATATE 100 MG CAPS 1 cap po TID PRN BENZONATATE 19995217140 No Longer Active Harinder Hernandez DO Active MONTELUKAST SODIUM 10 MG TABS 1 tab po in the evening MONTELUKAST SODIUM 66808744821 No Longer Active Harinder Hernandez DO Active MUPIROCIN 2 % OINT apply to affected area BID x 14 days MUPIROCIN 58885681764 No Longer Active Harinder Hernandez DO Active TYLENOL EXTRA STRENGTH 500 MG TABS as needed ACETAMINOPHEN 64814047080 No Longer Active Harinder Hernandez DO Active PREDNISONE 10 MG TABS 1 tab po daily PREDNISONE 20358143313 No Longer Active Harinder Hernandez DO Active PREDNISONE 20 MG TAB 2 tabs daily for 4 days, 1 tab daily for 4 days, 1/2 tab daily for 4 days PREDNISONE 37040374830 No Longer Active Harinder Hernandez DO Active AZITHROMYCIN 250 MG TABS 2 po qd x 1 day, then 1 po qd x 4 days AZITHROMYCIN 49566665578 No Longer Active Harinder Hernandez DO Active PREDNISONE 20 MG TAB 3 tabs today, then 1 tab twice daily for 3 day, then one daily for three days PREDNISONE 08424810962 No Longer Active Harinder Hernandez DO Active NIFEDIAC CC 30 MG [id number] 1 tablet daily for raynaud's syndrome NIFEDIPINE 72782738203 No Longer Active Tawnya Pardo MA Active AMBIEN 10 MG TAB 1/2 tab by mouth at bedtime as needed for sleep ZOLPIDEM TARTRATE 72993860394 Active Ciera Pimentel Active CLONAZEPAM 1 MG TABS 1 tablet at bedtime for insomnia and restless legs 09/14 CLONAZEPAM 31394527776 Active Harinder Hernandez DO Active CLONAZEPAM 0.5 MG TABS 1 tab po daily CLONAZEPAM 11097355624 No Longer Active Harinder Hernandez DO Active PREDNISONE 10 MG TAB 1 tablet daily for COPD PREDNISONE 38088179506 Active Ciera Pimentel Active PROAIR HFA 108 (90 BASE) MCG/ACT AERS 2 puffs four times a day as needed 2012 ALBUTEROL SULFATE 39593339303 Active Harinder Hernandez DO Active FLOVENT HFA 110 MCG/ACT AERO 2 puffs inhaled b.i.d. FLUTICASONE PROPIONATE HFA 35940468418 Active Kortney Mccain Active ACIPHEX 20 MG TBEC 1 tab po daily RABEPRAZOLE SODIUM 62018959508 Active Kaylah Newberry Active CLONAZEPAM 0.5 MG TABS 1 tab po daily CLONAZEPAM 0.5 MG TABS 443726 CLONAZEPAM Inactive PREDNISONE 20 MG TAB 3 tabs today, then 1 tab twice daily for 3 day, then one daily for three days PREDNISONE 20 MG TAB 811299 PREDNISONE Inactive PREDNISONE 20 MG TAB 2 tabs daily for 4 days, 1 tab daily for 4 days, 1/2 tab daily for 4 days PREDNISONE 20 MG TAB 783744 PREDNISONE Inactive PREDNISONE 10 MG TABS 1 tab po daily PREDNISONE 10 MG TABS 144053 PREDNISONE Inactive TYLENOL EXTRA STRENGTH 500 MG TABS as needed TYLENOL EXTRA STRENGTH 500 MG TABS 887457 ACETAMINOPHEN Inactive MUPIROCIN 2 % OINT apply to affected area BID x 14 days MUPIROCIN 2 % OINT 607124 MUPIROCIN Inactive MONTELUKAST SODIUM 10 MG TABS 1 tab po in the evening MONTELUKAST SODIUM 10 MG TABS 20010818 MONTELUKAST SODIUM Inactive BENZONATATE 100 MG CAPS 1 cap po TID PRN BENZONATATE 100 MG CAPS 150803 BENZONATATE Inactive NEURONTIN 300 MG CAP 1 cap by mouth three times daily for restless leg 06/22 NEURONTIN 300 MG CAP 180675 GABAPENTIN Inactive LEVAQUIN 500 MG TAB 1 tablet by mouth daily LEVAQUIN 500 MG TAB 765355 LEVOFLOXACIN Inactive PREDNISONE 20 MG TAB 1 TID x 2 days, then 1 BID x 3 days, then 1 Daily x 3 days, then stop PREDNISONE 20 MG TAB 465310 PREDNISONE Inactive POTASSIUM CHLORIDE ER 10 MEQ CR-TABS take 1 tab po daily POTASSIUM CHLORIDE ER 10 MEQ CR-TABS POTASSIUM CHLORIDE Inactive PREDNISONE 20 MG TAB 1 tab twice daily for 3 day, then one daily for three days PREDNISONE 20 MG TAB 772047 PREDNISONE Inactive TESSALON PERLES 100 MG CAP 1 to 2 tablets by mouth 3 times daily as needed for cough TESSALON PERLES 100 MG CAP 739915 BENZONATATE Inactive POTASSIUM CHLORIDE CR 10 MEQ CPCR 1 capsule by mouth daily 02/14 POTASSIUM CHLORIDE CR 10 MEQ CPCR POTASSIUM CHLORIDE Inactive NITROSTAT 0.4 MG SUBL 1 tab under tongueas needed for chest pain ( may take 3 total, 5 min apart, then call 911) NITROSTAT 0.4 MG SUBL 038096 NITROGLYCERIN Inactive LOVASTATIN 40 MG TABS 1 pill by mouth nightly for cholesterol LOVASTATIN 40 MG TABS 326700 LOVASTATIN Inactive CEFDINIR 300 MG ORAL CAPS take 1 cap po bid x 10 days CEFDINIR 300 MG ORAL CAPS 921933 CEFDINIR Inactive ACEBUTOLOL HCL 200 MG CAPS 1 cap in the morning and 2 caps in the evening ACEBUTOLOL HCL 200 MG CAPS 423824 ACEBUTOLOL HCL Inactive VENTOLIN HFA 108 (90 [...] for 4 days PREDNISONE 20 MG TAB 066074 PREDNISONE Inactive LOVASTATIN 40 MG ORAL TABS Take 1 tab po every hs LOVASTATIN 40 MG ORAL TABS 136929 LOVASTATIN Inactive DILAUDID 2 MG ORAL TABS Take 1/2 tab po every 4 hours as needed for pain 2014 DILAUDID 2 MG ORAL TABS 417575 HYDROMORPHONE HCL Inactive AMITRIPTYLINE HCL 25 MG ORAL TABS 1 q hs prn AMITRIPTYLINE HCL 25 MG ORAL TABS 954869 AMITRIPTYLINE HCL Inactive MECLIZINE HCL 25 MG TAB 1 tablet three times daily for 3 days, then 1/2 tab three times daily for 3 days. MECLIZINE HCL 25 MG TAB 231542 MECLIZINE HCL Inactive AMLODIPINE BESYLATE 5 MG ORAL TABS Take 1 tab po daily AMLODIPINE BESYLATE 5 MG ORAL TABS 080139 AMLODIPINE BESYLATE Inactive TOPIRAMATE 25 MG TABS 1 tab po BID TOPIRAMATE 25 MG TABS 474039 TOPIRAMATE Inactive PREDNISONE 20 MG TAB 1 tablet twice daily for 2 days, then 1 tablet once daily for 2 days PREDNISONE 20 MG TAB 628027 PREDNISONE Inactive PREDNISONE 20 MG TAB 1 tab twice daily for 3 day, then one daily for three days PREDNISONE 20 MG TAB 930134 PREDNISONE Inactive NIFEDIPINE ER 30 MG ORAL [id number] 1 daily NIFEDIPINE ER 30 MG ORAL [id number] NIFEDIPINE Inactive AMLODIPINE BESYLATE 5 MG TABS 1 tablet by mouth daily AMLODIPINE BESYLATE 5 MG TABS 351262 AMLODIPINE BESYLATE Inactive AZITHROMYCIN 250 MG TABS 2 po qd x 1 day, then 1 po qd x 4 days AZITHROMYCIN 250 MG TABS 0282653 AZITHROMYCIN Inactive AZITHROMYCIN 250 MG TABS 2 po qd x 1 day, then 1 po qd x 4 days AZITHROMYCIN 250 MG TABS 0097712 AZITHROMYCIN Inactive PREDNISONE 20 MG TAB 2 po qd x 5 days PREDNISONE 20 MG TAB 778528 PREDNISONE Inactive Vital Signs Date Name Value [...] Panel - Chemistry sodium, serum 137 mmol/L 051-333 4448/01/03 potassium, serum 3.4 mmol/L 3.5-5.2 chloride, serum 102 mmol/L 98-107 carbon dioxide, venous blood 29.2 mmol/L 21.0-32.0 blood glucose 87 mg/dL 65-110 calcium, serum 8.5 mg/dL 8.5-10.1 urea nitrogen, blood 8 mg/dL 7-18 creatinine, serum 0.82 mg/dL 0.55-1.30 sodium, serum 140 mmol/L 031-856 0798/07/13 potassium, serum 3.2 mmol/L 3.5-5.2 chloride, serum [...] ... - Chemistry sodium, serum 141 mmol/L 522-463 6479/08/07 carbon dioxide, venous blood 34.0 mmol/L 21.0-32.0 [...] Magnesium - Chemistry cholesterol, serum 180 mg/dL 321-662 7662/08/08 triglyceride, serum, fasting 92 mg/dL 30-200 HDL cholesterol, serum 66 mg/dL 32-96 LDL cholesterol, serum 96 mg/dL 0-130 sodium, serum 142 mmol/L 122-366 4189/08/08 carbon dioxide, venous blood 27.4 mmol/L 21.0-32.0 [...] 10.0-20.0 Encounters Code Encounter Date Provider Facility CPT-93973 Level 4 Est. Patient 14:45:25 CDT Harinder Hernandez [facility] CPT-45793 Level 4 Est. Patient 09:15:13 CDT Harinder Cr [facility] CPT-45428 Level 3 Est. Patient 11:51:58 CDT Harinder Cr [facility] CPT-17724 Level 3 Est. Patient 11:30:05 CDT Harinder Cr [facility] CPT-17601 Level 4 Est. Patient 10:19:23 CDT Harinder Cr [facility] CPT-37829 Level 3 Est. Patient 09:58:58 CDT Harinder Cr [facility] CPT-68539 Level 3 Est. Patient 12:37:21 CDT Harinder Cr [facility] CPT-82157 Level 3 Est. Patient 18:37:17 CDT Harinder Cr [facility] CPT-03318 Level 4 Est. Patient 11:15:54 CDT Nettie Newberry [facility] CPT-69595 Level 3 Est. Patient 16:42:24 CDT Harinder Cr [facility] CPT-72893 Level 3 Est. Patient 15:03:36 CDT Harinder Cr [facility] CPT-84227 Level 3 Est. Patient 15:03:20 CDT Harinder Cr [facility] CPT-48894 Level 3 Est. Patient 12:14:[address] [facility] CPT-40828 Level 3 Est. Patient 13:47:[address] [facility] CPT-34756 Level 3 Est. Patient 14:08:[address] [facility] CPT-12783 Level 3 Est. Patient 10:07:15 CDT Harinder Hernandez [facility] CPT-53846 Level 3 Est. Patient 10:06:59 CDT Harinder Hernandez [facility] CPT-18147 Level 3 Est. Patient 15:53:29 CDT Jae Morgan MD [facility] CPT-61997 Level 3 Est. Patient 17:19:04 CDT Harinder Hernandez [facility] CPT-99437 Level 3 Est. Patient 11:13:01 CDT Harinder Hernandez [facility] CPT-25590 Level 3 Est. Patient 09:03:58 CDT Harinder Hernandez [facility] CPT-60715 Level 3 Est. Patient 14:46:45 MARKETING ANALYST Harinder Hernandez [facility] CPT-59151 Level 3 Est. Patient 09:35:49 MARKETING ANALYST Harinder Hernandez [facility] CPT-73877 Level 3 Est. Patient 09:29:37 MARKETING ANALYST Harinder Hernandez [facility] CPT-31697 Level 3 Est. Patient 15:51:07 CDT Harinder Hernandez [facility] CPT-46394 Level 3 Est. Patient 18:13:13 CDT Harinder Hernandez [facility] CPT-84342 Level 3 Est. Patient 10:44:19 CDT Harinder Shaye Hernandez [facility] CPT-64406 Level 4 Est. Patient 10:07:19 MARKETING ANALYST Harinder Cr [facility] CPT-41704 Level 3 Est. Patient 15:59:32 MARKETING ANALYST Harinder Cr David [facility] Procedures Code Procedure Name Date Entry Date Standard Description CPT-05692 Abd compl w upright - XRAY USE ONLY 14:48:09 CDT 02/18 CPT-55485 Port a cath flush 13:46:05 CDT CPT-99269 Hip, complete, 2-3 views - XRAY USE ONLY 10:28:40 CDT CPT-74487 BMP - LAB USE ONLY 16:45:09 MARKETING ANALYST CPT-49224 Port a cath flush 12:00:13 MARKETING ANALYST CPT-TCMM Transitional Care Mgmt-Moderate 11:20:16 MARKETING ANALYST CPT-73566 First Vx - Ix admin for Medicare patients 17:35:15 CDT CPT-04188 Fluzone Preservative Free Intramuscular Suspension 17:35 :15 CDT CPT-92932 Microalbumin - LAB USE ONLY 11:52:05 CDT CPT-TCMM Transitional Care Mgmt-Moderate 11:33:57 CDT CPT-65619 No Charge Offi Visit 14:11:29 CDT CPT-99454 Magnesium - LAB USE ONLY 10:45:44 CDT CPT-51680 Lipid - LAB USE ONLY 10:45:44 CDT CPT-51137 CBC - LAB USE ONLY 10:45:44 CDT CPT-61377 Venipuncture Draw Fee 10:45:43 CDT CPT-71201 Venipuncture Draw Fee 18:21:27 CDT CPT-JTINJ Asp/Joint Injection 18:38:04 CDT CPT-55090 Immunization Each Additional Inj 17:38:04 CDT CPT-29974 Immunization Single Admin 17:38:04 CDT CPT-63737 Prevnar 13 17:38:04 CDT CPT-57872 Fluzone Quadrivalent preservative free (>=3yrs.) 17:38: 04 CDT CPT-56950 No Charge Offi Visit 11:14:03 CDT CPT-92549 Chest 2V Frontal and Lat 14:00:18 CDT CPT-OV Office Visit 16:10:28 CDT CPT-JTINJ Asp/Joint Injection 09:03:57 CDT CPT-Cryo Cryotherapy 09:35:49 MARKETING ANALYST CPT-JTINJ Asp/Joint Injection 09:34:45 MARKETING ANALYST CPT-J2930 Solu Medrol 125 mg (Methyl Prednisolone Sodium Succinate) 20:37:27 CDT CPT-44207 Abx/Therapy Injection 20:37:27 CDT CPT-46851 Port a cath flush 08:15:51 CDT CPT-90662 Port a cath flush 09:54:16 CDT CPT-70537 Port a cath flush 09:38:02 CDT CPT-17273 Port a cath flush 11:00:27 MARKETING ANALYST
--- OUTSIDE RECORDS SUMMARY | 2017-12-29 01:30 | XMS REPORT | Clinical Summary ---
Author Author Admin, QIE Organization [facility] [place] Address Unknown Phone Unavailable Allergies, Adverse Reactions, [...] LRT Symptomatic states associated with artificial menopause Body Mass Index 22.0-22.9 Adult Active Harinder Hernandez DO Body Mass Index between 19-24, adult Breast mass, right ICD-611.72 Inactive Harinder Hernandez DO Encounter for fitting and adjustment of vascular catheter ICD-V58.81 Inactive Harinder W David DO Back pain, lumbar ICD-724.2 Inactive Harinder W David DO Insomnia ICD-780.52 Inactive Harinder W David DO Raynaud's syndrome ICD-443.0 Inactive Kortney Adán Sacroiliitis, right ICD-720.2 Inactive Harinder W David [...] bursitis, left ICD-726.5 Inactive Harinder Hernandez DO Diarrhea, acute ICD-787.91 Inactive Kortney Mccain [...] Generic Name NDC Status Provider Patient Instruction CEFDINIR 300 MG ORAL CAPSULE 1 capsule twice daily 10 days CEFDINIR 34808636797 Active Harinder Hernandez DO Active SUPER CALCIUM 600 + D3 TABLET CALCIUM CARBONATE-VITAMIN D TABS 81526720830 Active Meenu Alejo LPN Active SPIRONOLACTONE 25 MG ORAL TABLET 1 tablet by mouth daily SPIRONOLACTONE 46219170490 No Longer Active Jeri Nieto Active PREDNISONE 20 MG ORAL TABLET 2 tablets by mouth today, then 1 tablet by mouth days 2-3 PREDNISONE 96467145087 No Longer Active Jeri Nieto Active NITROSTAT 0.4 MG SUBLINGUAL TABLET SUBLINGUAL 1 tab SL q5min PRN chest pain NITROGLYCERIN 90404818023 Active Meenu Alejo LPN Active THEOPHYLLINE ER 300 MG ORAL TABLET EXTENDED RELEASE 12 HOUR 1 po BID THEOPHYLLINE 81120746464 Active Meenu Alejo LPN Active POTASSIUM CHLORIDE ER 20 MEQ ORAL TABLET EXTENDED RELEASE 1 po q day POTASSIUM CHLORIDE 43365761227 Active Kortney Mccain Active POTASSIUM CHLORIDE 20 MEQ ORAL PACKET 1 tab po q day POTASSIUM CHLORIDE 96062956879 No Longer Active Kortney Mccain Active POTASSIUM CHLORIDE ER 10 MEQ ORAL CAPSULE EXTENDED RELEASE 1 capsule BID 2016 POTASSIUM CHLORIDE 93047954968 No Longer Active Kortney Mccain Active LASIX 20 MG ORAL TABLET 1 tablet by mouth every morning FUROSEMIDE 51374874328 No Longer Active Kortney Mccain Active FLUOXETINE HCL 10 MG ORAL CAPSULE 1 po qd for depression/anxiety FLUOXETINE HCL 43418062059 Active Meenu Alejo LPN Active VOLTAREN 1 % TRANSDERMAL GEL apply q 6-8 hour to left arm as needed for pain DICLOFENAC SODIUM 71482591955 Active Kortney Mccain Active ALBUTEROL SULFATE (2.5 MG/3ML) 0.083% INHALATION NEBULIZATION SOLUTION 1 vial neb q 4hrs for severe asthma. imperative to have this agent ALBUTEROL SULFATE 63852534785 Active Ciera Pimentel Active NIFEDIAC CC 30 MG ORAL TABLET EXTENDED RELEASE 24 HOUR 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 NIFEDIPINE 92115232537 Active Kortney Mccain Active AMLODIPINE BESYLATE 5 MG ORAL TABLET 1 tablet by mouth daily 2016 AMLODIPINE BESYLATE 37267153974 No Longer Active Harinder Hernandez DO Active TOPAMAX 25 MG ORAL TABLET 1 tab po BID TOPIRAMATE 40651238534 Active Kortney Mccain Active FLUTICASONE PROPIONATE 50 MCG/ACT NASAL SUSPENSION 2 sprays per nostril daily PRN Allergies FLUTICASONE PROPIONATE 16227455489 Active Meenu Alejo LPN Active NIFEDIPINE ER 30 MG ORAL TABLET EXTENDED RELEASE 24 HOUR 1 daily NIFEDIPINE 00522557722 No Longer Active Harinder Hernandez DO Active FLOVENT HFA 110 MCG/ACT INHALATION AEROSOL 2 puffs inhaled b.i.d. FLUTICASONE PROPIONATE HFA 02902611130 Active Harinder Hernandez DO Active EPIPEN 2-BRUNA 0.3 MG/0.3ML INJECTION SOLUTION AUTO-INJECTOR 1 INJ NEEDED EPINEPHRINE 01090557029 Active Meenu Alejo LPN Active PREDNISONE 20 MG ORAL TABLET 1 tab twice daily for 3 day, then one daily for three days PREDNISONE 60061761365 No Longer Active Harinder Hernandez DO Active PREDNISONE 20 MG ORAL TABLET 1 tablet twice daily for 2 days, then 1 tablet once daily for 2 days PREDNISONE 32374108850 No Longer Active Harinder Hernandez DO Active ASMANEX 120 METERED DOSES 220 MCG/INH INHALATION AEROSOL POWDER BREATH ACTIVATED 2 puffs orally twice daily MOMETASONE FUROATE 98664568603 Active Jeri Sosa LPN Active TOPIRAMATE 25 MG ORAL TABLET 1 tab po BID TOPIRAMATE 55134557247 No Longer Active Nettie Newberry APRN Active AMLODIPINE BESYLATE 5 MG ORAL TABLET Take 1 tab po daily AMLODIPINE BESYLATE 51969223612 No Longer Active Nettie Newberry APRN Active MECLIZINE HCL 25 MG ORAL TABLET 1 tablet three times daily for 3 days, then 1/ 2 tab three times daily for 3 days. MECLIZINE HCL 27424273637 No Longer Active Nettie Newberry APRN Active AMITRIPTYLINE HCL 25 MG ORAL TABLET 1 q hs prn AMITRIPTYLINE HCL 39744987681 No Longer Active Nettie Newberry APRN Active DILAUDID 2 MG ORAL TABLET Take 1/2 tab po every 4 hours as needed for pain HYDROMORPHONE HCL 24449797522 No Longer Active Nettie Newberry APRN Active CLOPIDOGREL BISULFATE 75 MG ORAL TABLET 1 tab by mouth once daily CLOPIDOGREL BISULFATE 21584442402 Active Meenu Alejo LPN Active ATORVASTATIN CALCIUM 10 MG ORAL TABLET 1 at bedtime ATORVASTATIN CALCIUM 56510180307 Active Kortney Mccain Active LOVASTATIN 40 MG ORAL TABLET Take 1 tab po every hs LOVASTATIN 89539021935 No Longer Active Harinder Hernandez DO Active PREDNISONE 20 MG ORAL TABLET 2 tabs daily for 4 days, 1 tab daily for 4 days, 1/2 tab daily for 4 days PREDNISONE 04880475314 No Longer Active Harinder Hernandez DO Active LEVAQUIN 500 MG ORAL TABLET Take 1 tab po daily x 8 days LEVOFLOXACIN 93740993265 No Longer Active Harinder Hernandez DO Active VENTOLIN HFA 108 (90 Base) MCG/ACT INHALATION AEROSOL SOLUTION 2 -4 puffs four times a day PRN ALBUTEROL SULFATE 38386825667 No Longer Active Jeri Sosa LPN Active ACEBUTOLOL HCL 200 MG ORAL CAPSULE 1 cap in the morning and 2 caps in the evening ACEBUTOLOL HCL 30884797258 No Longer Active Harinder Hernandez DO Active CEFDINIR 300 MG ORAL CAPSULE take 1 cap po bid x 10 days CEFDINIR 80684101895 No Longer Active Harinder Hernandez DO Active LOVASTATIN 40 MG ORAL TABLET 1 pill by mouth nightly for cholesterol LOVASTATIN 50958936159 No Longer Active Nettie Newberry APRN Active NITROSTAT 0.4 MG SUBLINGUAL TABLET SUBLINGUAL 1 tab under tongueas needed for chest pain ( may take 3 total, 5 min apart, then call 911) NITROGLYCERIN 24295974831 No Longer Active Nettie Newberry APRN Active POTASSIUM CHLORIDE ER 10 MEQ ORAL CAPSULE EXTENDED RELEASE 1 capsule by mouth daily POTASSIUM CHLORIDE 27940378273 No Longer Active Nettie Newberry APRN Active TESSALON PERLES 100 MG ORAL CAPSULE 1 to 2 tablets by mouth 3 times daily as needed for cough BENZONATATE 51587139669 No Longer Active Nettie Newberry APRN Active PREDNISONE 20 MG ORAL TABLET 2 po qd x 5 days PREDNISONE 98207206930 No Longer Active Jae Morgan MD Active AZITHROMYCIN 250 MG ORAL TABLET 2 po qd x 1 day, then 1 po qd x 4 days 12/30 AZITHROMYCIN 04165896891 No Longer Active Jae Morgan MD Active PREDNISONE 20 MG ORAL TABLET 1 tab twice daily for 3 day, then one daily for three days PREDNISONE 73338959743 No Longer Active Jae Morgan MD Active SINGULAIR 10 MG ORAL TABLET 1 pill by mouth every evening for breathing. 2014 MONTELUKAST SODIUM 88150601674 Active Meenu Alejo LPN Active TYLENOL 325 MG ORAL TABLET 3 by mouth q4h as needed ACETAMINOPHEN 82525381776 Active Harinder Hernandez DO Active POTASSIUM CHLORIDE ER 10 MEQ ORAL TABLET EXTENDED RELEASE take 1 tab po daily POTASSIUM CHLORIDE 47704410293 No Longer Active Harinder Hernandez DO Active PREDNISONE 20 MG ORAL TABLET 1 TID x 2 days, then 1 BID x 3 days, then 1 Daily x 3 days, then stop PREDNISONE 76438729128 No Longer Active Jillina Frazell MAHENDRA Active LEVAQUIN 500 MG ORAL TABLET 1 tablet by mouth daily LEVOFLOXACIN 57202633737 No Longer Active Jillina Fradankl MAHENDRA Active NEURONTIN 300 MG ORAL CAPSULE 1 cap by mouth three times daily for restless leg GABAPENTIN 33261972400 No Longer Active Harinder Hernandez DO Active BENZONATATE 100 MG ORAL CAPSULE 1 cap po TID PRN BENZONATATE 65381160050 No Longer Active Harinder Hernandez DO Active MONTELUKAST SODIUM 10 MG ORAL TABLET 1 tab po in the evening 2014 MONTELUKAST SODIUM 73047421968 No Longer Active Harinder Hernandez DO Active MUPIROCIN 2 % EXTERNAL OINTMENT apply to affected area BID x 14 days MUPIROCIN 27964952353 No Longer Active Harinder Hernandez DO Active TYLENOL EXTRA STRENGTH 500 MG ORAL TABLET as needed ACETAMINOPHEN 25459711440 No Longer Active Harinder Hernandez DO Active PREDNISONE 10 MG ORAL TABLET 1 tab po daily PREDNISONE 63102761347 No Longer Active Harinder Hernandez DO Active PREDNISONE 20 MG ORAL TABLET 2 tabs daily for 4 days, 1 tab daily for 4 days, 1/2 tab daily for 4 days PREDNISONE 37793316782 No Longer Active Harinder Hernandez DO Active AZITHROMYCIN 250 MG ORAL TABLET 2 po qd x 1 day, then 1 po qd x 4 days 04/06 AZITHROMYCIN 04707931044 No Longer Active Harinder Hernandez DO Active PREDNISONE 20 MG ORAL TABLET 3 tabs today, then 1 tab twice daily for 3 day, then one daily for three days PREDNISONE 82466388531 No Longer Active Harinder Hernandez DO Active NIFEDIAC CC 30 MG ORAL TABLET EXTENDED RELEASE 24 HOUR 1 tablet daily for raynaud's syndrome NIFEDIPINE 63578191865 No Longer Active Tanwya Pardo MA Active AMBIEN 10 MG ORAL TABLET 1/2 tab by mouth at bedtime as needed for sleep 2013 ZOLPIDEM TARTRATE 57269825408 Active Meenu Alejo LPN Active CLONAZEPAM 1 MG ORAL TABLET 1 tablet at bedtime for insomnia and restless legs CLONAZEPAM 16061151300 Active Meenu Alejo LPN Active CLONAZEPAM 0.5 MG ORAL TABLET 1 tab po daily CLONAZEPAM 98223430505 No Longer Active Harinder Hernandez DO Active PREDNISONE 10 MG ORAL TABLET 1 tablet daily for COPD PREDNISONE 29361648686 Active Kortney Mccain Active PROAIR HFA 108 (90 Base) MCG/ACT INHALATION AEROSOL SOLUTION 2 puffs four times a day as needed ALBUTEROL SULFATE 85056812360 Active Harinder Hernandez DO Active FLOVENT HFA 110 MCG/ACT INHALATION AEROSOL 2 puffs inhaled b.i.d. FLUTICASONE PROPIONATE HFA 81002047064 Active Kortney Mccain Active ACIPHEX 20 MG ORAL TABLET DELAYED RELEASE 1 tab po daily RABEPRAZOLE SODIUM 98602150844 Active Meenu Melo CHEN Active CLONAZEPAM 0.5 MG ORAL TABLET 1 tab po daily CLONAZEPAM 0.5 MG ORAL TABLET 824159 CLONAZEPAM Inactive PREDNISONE 20 MG ORAL TABLET 3 tabs today, then 1 tab twice daily for 3 day, then one daily for three days PREDNISONE 20 MG ORAL TABLET 102077 PREDNISONE Inactive PREDNISONE 20 MG ORAL TABLET 2 tabs daily for 4 days, 1 tab daily for 4 days, 1/2 tab daily for 4 days PREDNISONE 20 MG ORAL TABLET 192084 PREDNISONE Inactive PREDNISONE 10 MG ORAL TABLET 1 tab po daily PREDNISONE 10 MG ORAL TABLET 305396 PREDNISONE Inactive TYLENOL EXTRA STRENGTH 500 MG ORAL TABLET as needed TYLENOL EXTRA STRENGTH 500 MG ORAL TABLET 374704 ACETAMINOPHEN Inactive MUPIROCIN 2 % EXTERNAL OINTMENT apply to affected area BID x 14 days MUPIROCIN 2 % EXTERNAL OINTMENT 027522 MUPIROCIN Inactive MONTELUKAST SODIUM 10 MG ORAL TABLET 1 tab po in the evening 2014 MONTELUKAST SODIUM 10 MG ORAL TABLET 803079 MONTELUKAST SODIUM Inactive BENZONATATE 100 MG ORAL CAPSULE 1 cap po TID PRN BENZONATATE 100 MG ORAL CAPSULE 577652 BENZONATATE Inactive NEURONTIN 300 MG ORAL CAPSULE 1 cap by mouth three times daily for restless leg NEURONTIN 300 MG ORAL CAPSULE 732618 GABAPENTIN Inactive LEVAQUIN 500 MG ORAL TABLET 1 tablet by mouth daily LEVAQUIN 500 MG ORAL TABLET 241853 LEVOFLOXACIN Inactive PREDNISONE 20 MG ORAL TABLET 1 TID x 2 days, then 1 BID x 3 days, then 1 Daily x 3 days, then stop PREDNISONE 20 MG ORAL TABLET 480853 PREDNISONE Inactive POTASSIUM CHLORIDE ER 10 MEQ ORAL TABLET EXTENDED RELEASE take 1 tab po daily POTASSIUM CHLORIDE ER 10 MEQ ORAL TABLET EXTENDED RELEASE POTASSIUM CHLORIDE Inactive PREDNISONE 20 MG ORAL TABLET 1 tab twice daily for 3 day, then one daily for three days PREDNISONE 20 MG ORAL TABLET 654042 PREDNISONE Inactive TESSALON PERLES 100 MG ORAL CAPSULE 1 to 2 tablets by mouth 3 times daily as needed for cough TESSALON PERLES 100 MG ORAL CAPSULE 399456 BENZONATATE Inactive POTASSIUM CHLORIDE ER 10 MEQ ORAL CAPSULE EXTENDED RELEASE 1 capsule by mouth daily POTASSIUM CHLORIDE ER 10 MEQ ORAL CAPSULE EXTENDED RELEASE POTASSIUM CHLORIDE Inactive NITROSTAT 0.4 MG SUBLINGUAL TABLET SUBLINGUAL 1 tab under tongueas needed for chest pain ( may take 3 total, 5 min apart, then call 911) NITROSTAT 0.4 MG SUBLINGUAL TABLET SUBLINGUAL 172469 NITROGLYCERIN Inactive LOVASTATIN 40 MG ORAL TABLET 1 pill by mouth nightly for cholesterol LOVASTATIN 40 MG ORAL TABLET 052836 LOVASTATIN Inactive CEFDINIR 300 MG ORAL CAPSULE take 1 cap po bid x 10 days CEFDINIR 300 MG ORAL CAPSULE 365931 CEFDINIR Inactive ACEBUTOLOL HCL 200 MG ORAL CAPSULE 1 cap in the morning and 2 caps in the evening ACEBUTOLOL HCL 200 MG ORAL CAPSULE 376750 ACEBUTOLOL HCL Inactive VENTOLIN HFA 108 (90 Base) MCG/ACT INHALATION AEROSOL SOLUTION 2 -4 puffs four times a day PRN VENTOLIN HFA 108 (90 Base) MCG/ ACT INHALATION AEROSOL SOLUTION ALBUTEROL SULFATE Inactive LEVAQUIN 500 MG ORAL TABLET Take 1 tab po daily x 8 days LEVAQUIN 500 MG ORAL TABLET 528710 LEVOFLOXACIN Inactive PREDNISONE 20 MG ORAL TABLET 2 tabs daily for 4 days, 1 tab daily for 4 days, 1/2 tab daily for 4 days PREDNISONE 20 MG ORAL TABLET 922766 PREDNISONE Inactive LOVASTATIN 40 MG ORAL TABLET Take 1 tab po every hs LOVASTATIN 40 MG ORAL TABLET 698234 LOVASTATIN Inactive DILAUDID 2 MG ORAL TABLET Take 1/2 tab po every 4 hours as needed for pain DILAUDID 2 MG ORAL TABLET 024078 HYDROMORPHONE HCL Inactive AMITRIPTYLINE HCL 25 MG ORAL TABLET 1 q hs prn AMITRIPTYLINE HCL 25 MG ORAL TABLET 278797 AMITRIPTYLINE HCL Inactive MECLIZINE HCL 25 MG ORAL TABLET 1 tablet three times daily for 3 days, then 1/ 2 tab three times daily for 3 days. MECLIZINE HCL 25 MG ORAL TABLET 108083 MECLIZINE HCL Inactive AMLODIPINE BESYLATE 5 MG ORAL TABLET Take 1 tab po daily AMLODIPINE BESYLATE 5 MG ORAL TABLET 573168 AMLODIPINE BESYLATE Inactive TOPIRAMATE 25 MG ORAL TABLET 1 tab po BID TOPIRAMATE 25 MG ORAL TABLET 075920 TOPIRAMATE Inactive PREDNISONE 20 MG ORAL TABLET 1 tablet twice daily for 2 days, then 1 tablet once daily for 2 days PREDNISONE 20 MG ORAL TABLET 126023 PREDNISONE Inactive PREDNISONE 20 MG ORAL TABLET 1 tab twice daily for 3 day, then one daily for three days PREDNISONE 20 MG ORAL TABLET 622172 PREDNISONE Inactive NIFEDIPINE ER 30 MG ORAL TABLET EXTENDED RELEASE 24 HOUR 1 daily NIFEDIPINE ER 30 MG ORAL TABLET EXTENDED RELEASE 24 HOUR NIFEDIPINE Inactive AMLODIPINE BESYLATE 5 MG ORAL TABLET 1 tablet by mouth daily 2016 AMLODIPINE BESYLATE 5 MG ORAL TABLET 155304 AMLODIPINE BESYLATE Inactive LASIX 20 MG ORAL TABLET 1 tablet by mouth every morning LASIX 20 MG ORAL TABLET 207127 FUROSEMIDE Inactive POTASSIUM CHLORIDE ER 10 MEQ ORAL CAPSULE EXTENDED RELEASE 1 capsule BID 2016 POTASSIUM CHLORIDE ER 10 MEQ ORAL CAPSULE EXTENDED RELEASE POTASSIUM CHLORIDE Inactive POTASSIUM CHLORIDE 20 MEQ ORAL PACKET 1 tab po q day POTASSIUM CHLORIDE 20 MEQ ORAL PACKET 2857218 POTASSIUM CHLORIDE Inactive PREDNISONE 20 MG ORAL TABLET 2 tablets by mouth today, then 1 tablet by mouth days 2-3 PREDNISONE 20 MG ORAL TABLET 424493 PREDNISONE Inactive SPIRONOLACTONE 25 MG ORAL TABLET 1 tablet by mouth daily SPIRONOLACTONE 25 MG ORAL TABLET 019436 SPIRONOLACTONE Inactive AZITHROMYCIN 250 MG ORAL TABLET 2 po qd x 1 day, then 1 po qd x 4 days 04/06 AZITHROMYCIN 250 MG ORAL TABLET 703505 AZITHROMYCIN Inactive AZITHROMYCIN 250 MG ORAL TABLET 2 po qd x 1 day, then 1 po qd x 4 days 12/30 AZITHROMYCIN 250 MG ORAL TABLET 710560 AZITHROMYCIN Inactive PREDNISONE 20 MG ORAL TABLET 2 po qd x 5 days PREDNISONE 20 MG ORAL TABLET 830430 PREDNISONE Inactive Vital Signs Date Name Value Unit Range Description blood pressure, diastolic, repeated by physician 71 BP adan blood pressure, diastolic 71 mm[Hg] BP adan blood pressure, systolic, repeated by physician 118 BP sys blood pressure, systolic 118 mm[Hg] BP sys height E&M 64 [in_us] Bdy height pulse rate E&M 81 /min Heart rate temperature E&M 98.2 [degF] Body temperature weight E&M 129 [lb_av] Weight Measured blood pressure, diastolic 62 mm[Hg] BP adan [...] Panel - Chemistry sodium, serum 140 mmol/L 648-945 9894/07/13 potassium, serum 3.2 mmol/L 3.5-5.2 chloride, serum 103 mmol/L 98-107 carbon dioxide, venous blood 26.9 mmol/L 21.0-32.0 blood glucose 93 mg/dL 65-110 calcium, serum 9.2 mg/dL 8.5-10.1 urea nitrogen, blood 13 mg/dL 7-18 creatinine, serum 0.84 mg/dL 0.60-1.30 sodium, serum 140 mmol/L 144-327 5869/08/21 potassium, serum 3.8 mmol/L 3.5-5.2 chloride, serum 105 mmol/L 98-107 carbon dioxide, venous blood 26.9 mmol/L 21.0-32.0 blood glucose 85 mg/dL 65-110 calcium, serum 8.8 mg/dL 8.5-10.1 urea nitrogen, blood 11 mg/dL 7-18 creatinine, serum 0.95 mg/dL 0.60-1.30 sodium, serum 142 mmol/L 387-539 6065/06/14 potassium, serum 3.3 mmol/L 3.5-5.2 chloride, serum 105 mmol/L 98-107 carbon dioxide, venous blood 24.1 mmol/L 21.0-32.0 blood glucose 86 mg/dL 65-95 calcium, serum 8.4 mg/dL 8.5-10.1 urea nitrogen, blood 10 mg/dL 7-18 creatinine, serum 0.82 mg/dL 0.60-1.30 Lab Report: CBC - Hematology [...] ... - Chemistry sodium, serum 141 mmol/L 601-658 1497/08/07 carbon dioxide, venous blood 34.0 mmol/L 21.0-32.0 [...] 1.40 mg/dL 0.00-1.00 cholesterol, serum 192 mg/dL 307-938 7362/10/19 triglyceride, serum, fasting 71 mg/dL 30-200 HDL cholesterol, serum 72 mg/dL 32-60 LDL cholesterol, serum 106 mg/dL 0-130 Lab Report: Rapid Strep - Lab Microbial identification kit, rapid strep method Negative Negative Lab Report: THEOPHYLLINE - Toxicology theophylline level, serum 3.1 ug/mL 10.0-20.0 Encounters Code Encounter Date Provider Facility CPT-38953 Level 3 Est. Patient 14:31:43 CDT Harinder Hernandez [facility] CPT-05750 Level 4 Est. Patient 10:17:51 PACKAGING MACHINE [employer]PPLIES DISTRIBUTOR Harinder Hernandez [facility] CPT-75350 Level 3 Est. Patient 12:36:15 PACKAGING MACHINE SUPPLIES DISTRIBUTOR Harinder Hernandez [facility] CPT-82346 Level 3 Est. Patient 15:14:45 PACKAGING MACHINE SUPPLIES DISTRIBUTOR Harinder Hernandez [facility] CPT-60700 Level 4 Est. Patient 14:45:25 CDT Harinder Cr [facility] CPT-29004 Level 4 Est. Patient 09:15:13 CDT Harinder Hernandez [facility] CPT-59472 Level 3 Est. Patient 11:51:58 CDT Harinder Hernandez [facility] CPT-04585 Level 3 Est. Patient 11:30:05 CDT Harinder Cr [facility] CPT-00019 Level 4 Est. Patient 10:19:23 CDT Harinder Cr [facility] CPT-63582 Level 3 Est. Patient 09:58:58 CDT Harinder Cr [facility] CPT-98449 Level 3 Est. Patient 12:37:21 CDT Harinder Cr [facility] CPT-65466 Level 3 Est. Patient 18:37:17 CDT Harinder Cr [facility] CPT-87843 Level 4 Est. Patient 11:15:54 CDT Nettie Newberry [facility] named [facility] CPT-70312 Level 3 Est. Patient 16:42:24 CDT Harinder Cr [facility] CPT-47194 Level 3 Est. Patient 15:03:36 CDT Harinder Cr [facility] CPT-05817 Level 3 Est. Patient 15:03:20 CDT Harinder Cr [facility] CPT-87867 Level 3 Est. Patient 12:14:34 CDT Harinder Cr [facility] CPT-40262 Level 3 Est. Patient 13:47:15 CDT Harinder Cr [facility] CPT-06867 Level 3 Est. Patient 14:08:24 CDT Harinder Cr [facility] CPT-45184 Level 3 Est. Patient 10:07:15 CDT Harinder Hernandez [facility] CPT-32412 Level 3 Est. Patient 10:06:59 CDT Harinder Hernandez [facility] CPT-49476 Level 3 Est. Patient 15:53:29 CDT Jae Morgan MD [facility] CPT-78862 Level 3 Est. Patient 17:19:04 CDT Harinder Hernandez [facility] CPT-40822 Level 3 Est. Patient 11:13:01 CDT Harinder Hernandez [facility] CPT-65425 Level 3 Est. Patient 09:03:58 CDT Harinder Hernandez [facility] CPT-28980 Level 3 Est. Patient 14:46:45 PACKAGING MACHINE SUPPLIES DISTRIBUTOR Harinder Hernandez [facility] CPT-83505 Level 3 Est. Patient 09:35:49 PACKAGING MACHINE SUPPLIES DISTRIBUTOR Harinder Hernandez [facility] CPT-72430 Level 3 Est. Patient 09:29:37 PACKAGING MACHINE SUPPLIES DISTRIBUTOR Harinder Hernandez [facility] CPT-76457 Level 3 Est. Patient 15:51:07 CDT Harinder Hernandez [facility] CPT-61293 Level 3 Est. Patient 18:13:13 CDT Harinder Hernandez [facility] CPT-56143 Level 3 Est. Patient 10:44:19 CDT Harinder Hernandez [facility] CPT-99541 Level 4 Est. Patient 10:07:19 PACKAGING MACHINE SUPPLIES DISTRIBUTOR Harinder Hernandez [facility] CPT-34593 Level 3 Est. Patient 15:59:32 PACKAGING MACHINE SUPPLIES DISTRIBUTOR Harinder Shaye David [facility] Procedures Code Procedure Name Date Entry Date Standard Description CPT-87497 Bone Density - XRAY USE ONLY 14:43:42 CDT CPT-G0009 Administration of Pneumococcal Vaccine 10:33:25 PACKAGING MACHINE SUPPLIES DISTRIBUTOR CPT-35593 Pneumovax 23 Injection Injectable 25 MCG/0.5ML 10:33:25 PACKAGING MACHINE [employer]PPLIES DISTRIBUTOR CPT-13806 First Vx - Ix admin for Medicare patients 10:33:25 PACKAGING MACHINE SUPPLIES DISTRIBUTOR CPT-97175 Fluzone Quadrivalent Intramuscular Suspension 0.5 ML 10: 33:25 PACKAGING MACHINE SUPPLIES DISTRIBUTOR CPT-Cryo Cryotherapy 10:17:51 PACKAGING MACHINE SUPPLIES DISTRIBUTOR CPT-G0438 Initial Annual Wellness Exam 10:08:59 PACKAGING MACHINE [employer]PPLIES DISTRIBUTOR CPT-03313 Abd compl w upright - XRAY USE ONLY 14:48:09 CDT 02/18 CPT-64093 Port a cath flush 13:46:05 CDT CPT-86880 Hip, complete, 2-3 views - XRAY USE ONLY 10:28:40 CDT CPT-90337 BMP - LAB USE ONLY 16:45:09 PACKAGING MACHINE [employer]PPLIES DISTRIBUTOR CPT-65844 Port a cath flush 12:00:13 PACKAGING MACHINE SUPPLIES DISTRIBUTOR CPT-TCMM Transitional Care Mgmt-Moderate 11:20:16 PACKAGING MACHINE SUPPLIES DISTRIBUTOR CPT-22824 First Vx - Ix admin for Medicare patients 17:35:15 CDT CPT-92486 Fluzone Preservative Free Intramuscular Suspension 17:35 :15 CDT CPT-39059 Microalbumin - LAB USE ONLY 11:52:05 CDT CPT-TCMM Transitional Care Mgmt-Moderate 11:33:57 CDT CPT-41318 No Charge Offi Visit 14:11:29 CDT CPT-45363 Magnesium - LAB USE ONLY 10:45:44 CDT CPT-98239 Lipid - LAB USE ONLY 10:45:44 CDT CPT-44255 CBC - LAB USE ONLY 10:45:44 CDT CPT-92001 Venipuncture Draw Fee 10:45:43 CDT CPT-90093 Venipuncture Draw Fee 18:21:27 CDT CPT-JTINJ Asp/Joint Injection 18:38:04 CDT CPT-74270 Immunization Each Additional Inj 17:38:04 CDT CPT-68908 Immunization Single Admin 17:38:04 CDT CPT-73848 Prevnar 13 17:38:04 CDT CPT-31316 Fluzone Quadrivalent preservative free (>=3yrs.) 17:38: 04 CDT CPT-13302 No Charge Offi Visit 11:14:03 CDT CPT-11772 Chest 2V Frontal and Lat 14:00:18 CDT CPT-OV Office Visit 16:10:28 CDT CPT-JTINJ Asp/Joint Injection 09:03:57 CDT CPT-Cryo Cryotherapy 09:35:49 PACKAGING MACHINE SUPPLIES DISTRIBUTOR CPT-JTINJ Asp/Joint Injection 09:34:45 PACKAGING MACHINE SUPPLIES DISTRIBUTOR CPT-J2930 Solu Medrol 125 mg (Methyl Prednisolone Sodium Succinate) 20:37:27 CDT CPT-57271 Abx/Therapy Injection 20:37:27 CDT CPT-41026 Port a cath flush 08:15:51 CDT CPT-67349 Port a cath flush 09:54:16 CDT CPT-65339 Port a cath flush 09:38:02 CDT CPT-75686 Port a cath flush 11:00:27 PACKAGING MACHINE SUPPLIES DISTRIBUTOR
--- OUTSIDE RECORDS SUMMARY | 2017-12-29 01:31 | XMS REPORT ---
Author Author [facility] Medical Staff Organization [facility] Address [address] [place], [place] [address] Phone [phone] Care Team Providers Care Barrel Polisher Inside Name Role Phone REBEKAH DO SAIGE PP [phone] SAIGE WELCH DO PP [phone] SAIGE WELCH DO PP [phone] Summary purpose TRANSITION OF CARE AUTO GENERATION Chief Complaint and Reason for Visit Admit Diagnosis 1 SCREENING MAL SHERYL COLON Problem list No authorized problems tracked for [...] for this patient visit History of procedures Procedure Code Code Type Description Date Performed Performing Physician 45.42 ICD9-CM ENDO POLYPECTOMY/COLON 02-18-2015 74112 CPT-4 LESION REMOVE COLONOSCOPY 02-18-2015 CADENCE CRAWFORD J2250 CPT-4 INJ MIDAZOLAM HYDROCHLORIDE 02-18-2015 CADENCE CRAWFORD J3010 CPT-4 FENTANYL CITRATE INJECITON 02-18-2015 CADENCE CRAWFORD J2704 CPT-4 INJ, PROPOFOL, 10 MG 02-18-2015 CADENCE CRAWFORD J1642 CPT-4 INJ HEPARIN SODIUM PER 10 U 02-18-2015 CADENCE CRAWFORD Functional status Functional Status Finding Observation Time Hearing Prob Loc none 12-77-543531:15 Vision Problems yes 57-44-225938:15 Vision Correct Dev glasses 36-30-076547:15 Ambulation Asst Dev none 45-49-019234:15 Range of Motion full :35 Muscle Strength RUE 5 ROM full resist 94-01-324679:35 Muscle Strength RLE 5 ROM full resist 09-74-039907:35 Muscle Strength LUE 5 ROM full resist 16-18-654850:35 Muscle Strength LLE 5 ROM full resist 46-56-298295:35 Transfers assist x 1 :35 Ambulation in room :35 Balance steady :35 Bathing Assistance none :15 Eating Assistance none 48-43-429905:15 Dressing Assistance none 02-79-908199:15 Toileting Assistance none 01-86-263363:15 Transfer Assistance none :15 Decline Slf Care/Mob no :15 Phys Cond Stable yes :15 Nutrition normal :35 Diet regular 54-42-555759:35 Oral Cavity moist and intact :35 Teeth dentures 37-22-088651:35 Dental Hygiene good 88-76-432492:35 Abdomen Appearance flat 42-96-376802:35 Abdomen soft :35 Bowel Sounds present :35 NG Tube no :35 Feeding Tube none :35 Wallace no :35 Cont Bladder Irr no :35 Ostomy no :35 Stool diarrhea :35 Urination normal :35 Urine Clarity clear :35 Urine Color yellow :35 Quality sym/unlabored :35 Cough non-productive :35 Secretions [...] Type rosa-cath :05 VAD Location L chest :05 VAD Site Info discontinued Comment: access removed : VAD Site Appearance WNL :05 VAD Site [...] per w/c. Care car to escort home. 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 Hospital discharge instructions Discharge Date/Time 02/18/2015 13:03 Accompanied By melryn/care car Dismissal Condition good Disposition on DC home Valuables yes Valuable Type billfold/purse Valuables Returned T patient DC Inst/Educ Give yes Exit Care Educ Given yes Med/Side Effects Rev yes DC Med Rec Rev yes PNE Vac none Flu Vac 2013 Tetanus Vac unsure Diet Explained yes Follow up appt call for appointment Follow Up Appt D/T prn
--- OUTSIDE RECORDS SUMMARY | 2017-12-29 01:31 | XMS REPORT | Clinical Summary ---
Author Author Admin, QIE Organization [facility] [employer] Address Unknown Phone Unavailable Allergies, Adverse Reactions, [...] tab po q day therafter. POTASSIUM CHLORIDE 63188527883 Active Kortney Mccain Active POTASSIUM CHLORIDE CR 10 MEQ CPCR 1 capsule BID POTASSIUM CHLORIDE 02690236678 No Longer Active Kortney Mccain Active LASIX 20 MG TAB 1 tablet by mouth every morning FUROSEMIDE 90605937847 No Longer Active Kortney Mccain Active SPIRONOLACTONE 25 MG TAB 1 tablet by mouth daily SPIRONOLACTONE 15278310265 Active Ciera Pimentel Active FLUOXETINE HCL 10 MG ORAL CAPS 1 po qd for depression/anxiety FLUOXETINE HCL 59805131711 Active Harinder Hernandez DO Active VOLTAREN 1 % GEL apply q 6-8 hour to left arm as needed for pain DICLOFENAC SODIUM 37082607502 Active Harinder Hernandez DO Active ALBUTEROL SULFATE 0.083 % NEBU SOLN 1 vial neb q 4hrs for severe asthma. 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 FLUTICASONE PROPIONATE HFA 07958733323 Active Harinder Hernandez DO Active EPIPEN 2-BRUNA 0.3 MG/0.3ML INJ SOAJ 1 INJ NEEDED EPINEPHRINE 12539790036 Active Harinder Hernandez DO Active PREDNISONE 20 MG TAB 1 tab twice daily for 3 day, then one daily for three days PREDNISONE 29263641032 No Longer Active Harinder Hernandez DO Active PREDNISONE 20 MG TAB 1 tablet twice daily for 2 days, then 1 tablet once daily for 2 days PREDNISONE 36454552688 No Longer Active Harinder Hernandez DO Active ASMANEX 120 METERED DOSES 220 MCG/INH INH AEPB 2 puffs orally twice daily MOMETASONE FUROATE 13621863553 Active Jeri Sosa LPN Active TOPIRAMATE 25 MG TABS 1 tab po BID TOPIRAMATE 19558530814 No Longer Active Nettie Newberry APRN Active AMLODIPINE BESYLATE 5 MG ORAL TABS Take 1 tab po daily AMLODIPINE BESYLATE 07397938523 No Longer Active Nettie Newberry APRN Active MECLIZINE HCL 25 MG TAB 1 tablet three times daily for 3 days, then 1/2 tab three times daily for 3 days. MECLIZINE HCL 18036689421 No Longer Active Nettie Newberry MAHENDRA Active AMITRIPTYLINE HCL 25 MG ORAL TABS 1 q hs prn AMITRIPTYLINE HCL 61821995743 No Longer Active Nettie Newberry MAHENDRA Active DILAUDID 2 MG ORAL TABS Take 1/2 tab po every 4 hours as needed for pain 2014 HYDROMORPHONE HCL 14045141429 No Longer Active Nettieog Newberry APRN Active CLOPIDOGREL BISULFATE 75 MG ORAL TABS 1 tab by mouth once daily CLOPIDOGREL BISULFATE 31884483021 Active Harinder Hernandez DO Active ATORVASTATIN CALCIUM 10 MG ORAL TABS 1 at bedtime ATORVASTATIN CALCIUM 44261865262 Active Tawnya Pardo MA Active LOVASTATIN 40 MG ORAL TABS Take 1 tab po every hs LOVASTATIN 87243124163 No Longer Active Harinder Hernandez DO Active PREDNISONE 20 MG TAB 2 tabs daily for 4 days, 1 tab daily for 4 days, 1/2 tab daily for 4 days PREDNISONE 41922143007 No Longer Active Harinder Hernandez DO Active LEVAQUIN 500 MG ORAL TABS Take 1 tab po daily x 8 days LEVOFLOXACIN 58216296658 No Longer Active Harinder Hernandez DO Active VENTOLIN HFA 108 (90 BASE) MCG/ACT AERS 2 -4 puffs four times a day PRN 2013 ALBUTEROL SULFATE 47158442502 No Longer Active Jeri Sosa LPN Active ACEBUTOLOL HCL 200 MG CAPS 1 cap in the morning and 2 caps in the evening ACEBUTOLOL HCL 64819423694 No Longer Active Harinder Hernandez DO Active CEFDINIR 300 MG ORAL CAPS take 1 cap po bid x 10 days CEFDINIR 87133687832 No Longer Active Harinder Hernandez DO Active LOVASTATIN 40 MG TABS 1 pill by mouth nightly for cholesterol LOVASTATIN 10576686881 No Longer Active Nettie Rohith MAHENDRA Active NITROSTAT 0.4 MG SUBL 1 tab under tongueas needed for chest pain ( may take 3 total, 5 min apart, then call 911) NITROGLYCERIN 10934570105 No Longer Active Nettie Newberry MAHENDRA Active POTASSIUM CHLORIDE CR 10 MEQ CPCR 1 capsule by mouth daily 02/14 POTASSIUM CHLORIDE 42164565804 [facility] TESSALON PERLES 100 MG CAP 1 to 2 tablets by mouth 3 times daily as needed for cough BENZONATATE 37426568184 No Longer Active Nettie Newberry MAHENDRA Active THEOPHYLLINE ER 200 MG ORAL [id number] Take 1 tab every 12 hours THEOPHYLLINE 50840648202 Active Harinder Hernandez DO Active PREDNISONE 20 MG TAB 2 po qd x 5 days PREDNISONE 46734488660 No Longer Active Jae Morgan MD Active AZITHROMYCIN 250 MG TABS 2 po qd x 1 day, then 1 po qd x 4 days AZITHROMYCIN 70654720391 No Longer Active Jae Morgan MD Active PREDNISONE 20 MG TAB 1 tab twice daily for 3 day, then one daily for three days PREDNISONE 80480392488 No Longer Active Jae Morgan MD Active SINGULAIR 10 MG TABS 1 pill by mouth every evening for breathing. MONTELUKAST SODIUM 14872576883 Active Tawnya Pardo MA Active TYLENOL 325 MG TAB 3 by mouth q4h as needed ACETAMINOPHEN 09887860132 Active Harinder Hernandez DO Active POTASSIUM CHLORIDE ER 10 MEQ CR-TABS take 1 tab po daily POTASSIUM CHLORIDE 25620715647 No Longer Active Harinder Hernandez DO Active PREDNISONE 20 MG TAB 1 TID x 2 days, then 1 BID x 3 days, then 1 Daily x 3 days, then stop PREDNISONE 39478847408 No Longer Active John Montemayor APRN Active LEVAQUIN 500 MG TAB 1 tablet by mouth daily LEVOFLOXACIN 37421197952 No Longer Active John Montemayor QUOTATION CLERK Active NEURONTIN 300 MG CAP 1 cap by mouth three times daily for restless leg 06/22 GABAPENTIN 16801683082 No Longer Active Harinder Hernandez DO Active BENZONATATE 100 MG CAPS 1 cap po TID PRN BENZONATATE 21162927022 No Longer Active Harinder Hernandez DO Active MONTELUKAST SODIUM 10 MG TABS 1 tab po in the evening MONTELUKAST SODIUM 48775716829 No Longer Active Harinder Hernandez DO Active MUPIROCIN 2 % OINT apply to affected area BID x 14 days MUPIROCIN 93196146029 No Longer Active Harinder Hernandez DO Active TYLENOL EXTRA STRENGTH 500 MG TABS as needed ACETAMINOPHEN 49139966642 No Longer Active Harinder Hernandez DO Active PREDNISONE 10 MG TABS 1 tab po daily PREDNISONE 35287227060 No Longer Active Harinder Hernandez DO Active PREDNISONE 20 MG TAB 2 tabs daily for 4 days, 1 tab daily for 4 days, 1/2 tab daily for 4 days PREDNISONE 74095165556 No Longer Active Harinder Hernandez DO Active AZITHROMYCIN 250 MG TABS 2 po qd x 1 day, then 1 po qd x 4 days AZITHROMYCIN 03050035370 No Longer Active Harinder Hernandez DO Active PREDNISONE 20 MG TAB 3 tabs today, then 1 tab twice daily for 3 day, then one daily for three days PREDNISONE 71961584924 No Longer Active Harinder Hernandez DO Active NIFEDIAC CC 30 MG [id number] 1 tablet daily for raynaud's syndrome NIFEDIPINE 69765732451 No Longer Active Tawnya Prado MA Active AMBIEN 10 MG TAB 1/2 tab by mouth at bedtime as needed for sleep ZOLPIDEM TARTRATE 88134157681 Active Harinder Hernandez DO Active CLONAZEPAM 1 MG TABS 1 tablet at bedtime for insomnia and restless legs 09/14 CLONAZEPAM 40366159084 Active Harinder Hernandez DO Active CLONAZEPAM 0.5 MG TABS 1 tab po daily CLONAZEPAM 69151671513 No Longer Active Harinder Hernandez DO Active PREDNISONE 10 MG TAB 1 tablet daily for COPD PREDNISONE 37660565645 Active Harinder Hernandez DO Active PROAIR HFA 108 (90 BASE) MCG/ACT AERS 2 puffs four times a day as needed 2012 ALBUTEROL SULFATE 11153658779 Active Harinder Hernandez DO Active FLOVENT HFA 110 MCG/ACT AERO 2 puffs inhaled b.i.d. FLUTICASONE PROPIONATE HFA 42005821126 Active Kortney Mccain Active ACIPHEX 20 MG TBEC 1 tab po daily RABEPRAZOLE SODIUM 33578816999 Active Kaylah Newberry Active CLONAZEPAM 0.5 MG TABS 1 tab po daily CLONAZEPAM 0.5 MG TABS 294408 CLONAZEPAM Inactive PREDNISONE 20 MG TAB 3 tabs today, then 1 tab twice daily for 3 day, then one daily for three days PREDNISONE 20 MG TAB 279419 PREDNISONE Inactive PREDNISONE 20 MG TAB 2 tabs daily for 4 days, 1 tab daily for 4 days, 1/2 tab daily for 4 days PREDNISONE 20 MG TAB 246789 PREDNISONE Inactive PREDNISONE 10 MG TABS 1 tab po daily PREDNISONE 10 MG TABS 983545 PREDNISONE Inactive TYLENOL EXTRA STRENGTH 500 MG TABS as needed TYLENOL EXTRA STRENGTH 500 MG TABS ACETAMINOPHEN Inactive MUPIROCIN 2 % OINT apply to affected area BID x 14 days MUPIROCIN 2 % OINT 537907 MUPIROCIN Inactive MONTELUKAST SODIUM 10 MG TABS 1 tab po in the evening MONTELUKAST SODIUM 10 MG TABS 20010818 MONTELUKAST SODIUM Inactive BENZONATATE 100 MG CAPS 1 cap po TID PRN BENZONATATE 100 MG CAPS 984905 BENZONATATE Inactive NEURONTIN 300 MG CAP 1 cap by mouth three times daily for restless leg 06/22 NEURONTIN 300 MG CAP 023736 GABAPENTIN Inactive LEVAQUIN 500 MG TAB 1 tablet by mouth daily LEVAQUIN 500 MG TAB 573842 LEVOFLOXACIN Inactive PREDNISONE 20 MG TAB 1 TID x 2 days, then 1 BID x 3 days, then 1 Daily x 3 days, then stop PREDNISONE 20 MG TAB 526020 PREDNISONE Inactive POTASSIUM CHLORIDE ER 10 MEQ CR-TABS take 1 tab po daily POTASSIUM CHLORIDE ER 10 MEQ CR-TABS POTASSIUM CHLORIDE Inactive PREDNISONE 20 MG TAB 1 tab twice daily for 3 day, then one daily for three days PREDNISONE 20 MG TAB 072225 PREDNISONE Inactive TESSALON PERLES 100 MG CAP 1 to 2 tablets by mouth 3 times daily as needed for cough TESSALON PERLES 100 MG CAP 088749 BENZONATATE Inactive POTASSIUM CHLORIDE CR 10 MEQ CPCR 1 capsule by mouth daily 02/14 POTASSIUM CHLORIDE CR 10 MEQ CPCR POTASSIUM CHLORIDE Inactive NITROSTAT 0.4 MG SUBL 1 tab under tongueas needed for chest pain ( may take 3 total, 5 min apart, then call 911) NITROSTAT 0.4 MG SUBL 982330 NITROGLYCERIN Inactive LOVASTATIN 40 MG TABS 1 pill by mouth nightly for cholesterol LOVASTATIN 40 MG TABS 882271 LOVASTATIN Inactive CEFDINIR 300 MG ORAL CAPS take 1 cap po bid x 10 days CEFDINIR 300 MG ORAL CAPS 422963 CEFDINIR Inactive ACEBUTOLOL HCL 200 MG CAPS 1 cap in the morning and 2 caps in the evening ACEBUTOLOL HCL 200 MG CAPS 394605 ACEBUTOLOL HCL Inactive VENTOLIN HFA 108 (90 BASE) MCG/ACT AERS 2 -4 puffs four times a day PRN 2013 VENTOLIN HFA 108 (90 BASE) MCG/ACT AERS ALBUTEROL SULFATE Inactive LEVAQUIN 500 MG ORAL TABS Take 1 tab po daily x 8 days LEVAQUIN 500 MG ORAL TABS 758236 LEVOFLOXACIN Inactive PREDNISONE 20 MG TAB 2 tabs daily for 4 days, 1 tab daily for 4 days, 1/2 tab daily for 4 days PREDNISONE 20 MG TAB 265963 PREDNISONE Inactive LOVASTATIN 40 MG ORAL TABS Take 1 tab po every hs LOVASTATIN 40 MG ORAL TABS 926444 LOVASTATIN Inactive DILAUDID 2 MG ORAL TABS Take 1/2 tab po every 4 hours as needed for pain 2014 DILAUDID 2 MG ORAL TABS 878419 HYDROMORPHONE HCL Inactive AMITRIPTYLINE HCL 25 MG ORAL TABS 1 q hs prn AMITRIPTYLINE HCL 25 MG ORAL TABS 074280 AMITRIPTYLINE HCL Inactive MECLIZINE HCL 25 MG TAB 1 tablet three times daily for 3 days, then 1/2 tab three times daily for 3 days. MECLIZINE HCL 25 MG TAB 768489 MECLIZINE HCL Inactive AMLODIPINE BESYLATE 5 MG ORAL TABS Take 1 tab po daily AMLODIPINE BESYLATE 5 MG ORAL TABS 232461 AMLODIPINE BESYLATE Inactive TOPIRAMATE 25 MG TABS 1 tab po BID TOPIRAMATE 25 MG TABS 500867 TOPIRAMATE Inactive PREDNISONE 20 MG TAB 1 tablet twice daily for 2 days, then 1 tablet once daily for 2 days PREDNISONE 20 MG TAB 231233 PREDNISONE Inactive PREDNISONE 20 MG TAB 1 tab twice daily for 3 day, then one daily for three days PREDNISONE 20 MG TAB 396643 PREDNISONE Inactive NIFEDIPINE ER 30 MG ORAL [id number] 1 daily NIFEDIPINE ER 30 MG ORAL [id number] NIFEDIPINE Inactive AMLODIPINE BESYLATE 5 MG TABS 1 tablet by mouth daily AMLODIPINE BESYLATE 5 MG TABS 411427 AMLODIPINE BESYLATE Inactive LASIX 20 MG TAB 1 tablet by mouth every morning LASIX 20 MG TAB 762548 FUROSEMIDE Inactive POTASSIUM CHLORIDE CR 10 MEQ CPCR 1 capsule BID POTASSIUM CHLORIDE CR 10 MEQ CPCR POTASSIUM CHLORIDE Inactive AZITHROMYCIN 250 MG TABS 2 po qd x 1 day, then 1 po qd x 4 days AZITHROMYCIN 250 MG TABS 0539577 AZITHROMYCIN Inactive AZITHROMYCIN 250 MG TABS 2 po qd x 1 day, then 1 po qd x 4 days AZITHROMYCIN 250 MG TABS 8438880 AZITHROMYCIN Inactive PREDNISONE 20 MG TAB 2 po qd x 5 days PREDNISONE 20 MG TAB 314630 PREDNISONE Inactive Vital Signs Date Name Value [...] Panel - Chemistry sodium, serum 137 mmol/L 508-381 0228/01/03 potassium, serum 3.4 mmol/L 3.5-5.2 chloride, serum 102 mmol/L 98-107 carbon dioxide, venous blood 29.2 mmol/L 21.0-32.0 blood glucose 87 mg/dL 65-110 calcium, serum 8.5 mg/dL 8.5-10.1 urea nitrogen, blood 8 mg/dL 7-18 creatinine, serum 0.82 mg/dL 0.55-1.30 sodium, serum 140 mmol/L 670-249 6841/07/13 potassium, serum 3.2 mmol/L 3.5-5.2 chloride, serum 103 mmol/L 98-107 carbon dioxide, venous blood 26.9 mmol/L 21.0-32.0 blood glucose 93 mg/dL 65-110 calcium, serum 9.2 mg/dL 8.5-10.1 urea nitrogen, blood 13 mg/dL 7-18 creatinine, serum 0.84 mg/dL 0.60-1.30 sodium, serum 140 mmol/L 736-761 1966/08/21 potassium, serum 3.8 mmol/L 3.5-5.2 chloride, serum [...] ... - Chemistry sodium, serum 141 mmol/L 564-249 3222/08/07 carbon dioxide, venous blood 34.0 mmol/L 21.0-32.0 [...] 0-19 Encounters Code Encounter Date Provider Facility CPT-24209 Level 4 Est. Patient 14:45:25 CDT Harinder Cr [facility] CPT-92753 Level 4 Est. Patient 09:15:13 CDT Harinder Cr [facility] CPT-46666 Level 3 Est. Patient 11:51:58 CDT Harinder Cr [facility] CPT-01068 Level 3 Est. Patient 11:30:05 CDT Harinder Cr [facility] CPT-16815 Level 4 Est. Patient 10:19:23 CDT Harinder Cr [facility] CPT-54630 Level 3 Est. Patient 09:58:58 CDT Harinder Cr [facility] CPT-64130 Level 3 Est. Patient 12:37:21 CDT Harinder Cr [facility] CPT-22948 Level 3 Est. Patient 18:37:17 CDT Harinder Cr [facility] CPT-24271 Level 4 Est. Patient 11:15:54 CDT Nettie Rohith [facility] CPT-73500 Level 3 Est. Patient 16:42:24 CDT Harinder Cr [facility] CPT-80731 Level 3 Est. Patient 15:03:36 CDT Harinder Cr [facility] CPT-18000 Level 3 Est. Patient 15:03:20 CDT Harinder Cr [facility] CPT-67115 Level 3 Est. Patient 12:14:34 CDT Harinder Cr [facility] CPT-32363 Level 3 Est. Patient 13:47:15 CDT Harinder Cr [facility] CPT-70637 Level 3 Est. Patient 14:08:24 CDT Harinder Hernandez [facility] CPT-07526 Level 3 Est. Patient 10:07:15 CDT Harinder Hernandez [facility] CPT-60555 Level 3 Est. Patient 10:06:59 CDT Harinder Hernandez [facility] CPT-94357 Level 3 Est. Patient 15:53:29 CDT Jae Morgan MD [facility] CPT-03757 Level 3 Est. Patient 17:19:04 CDT Harinder Hernandez [facility] CPT-24819 Level 3 Est. Patient 11:13:01 CDT Harinder Hernandez [facility] CPT-78078 Level 3 Est. Patient 09:03:58 CDT Harinder Hernandez [facility] CPT-25064 Level 3 Est. Patient 14:46:45 SURGICAL PHYSICIAN ASSISTANT Harinder Hernandez [facility] CPT-73714 Level 3 Est. Patient 09:35:49 SURGICAL PHYSICIAN ASSISTANT Harinder Hernandez [facility] CPT-12270 Level 3 Est. Patient 09:29:37 SURGICAL PHYSICIAN ASSISTANT Harinder Hernandez [facility] CPT-85476 Level 3 Est. Patient 15:51:07 CDT Harinder Hernandez [facility] CPT-94247 Level 3 Est. Patient 18:13:13 CDT Harinder Hernandez [facility] CPT-22814 Level 3 Est. Patient 10:44:19 CDT Harinder Cr [facility] CPT-69493 Level 4 Est. Patient 10:07:19 SURGICAL PHYSICIAN ASSISTANT Harinder Hernandez [facility] CPT-92851 Level 3 Est. Patient 15:59:32 SURGICAL PHYSICIAN ASSISTANT Harinder Cr [facility] Procedures Code Procedure Name Date Entry Date Standard Description CPT-67590 Abd compl w upright - XRAY USE ONLY 14:48:09 CDT 02/18 CPT-55375 Port a cath flush 13:46:05 CDT CPT-16113 Hip, complete, 2-3 views - XRAY USE ONLY 10:28:40 CDT CPT-21894 BMP - LAB USE ONLY 16:45:09 SURGICAL PHYSICIAN ASSISTANT CPT-85305 Port a cath flush 12:00:13 SURGICAL PHYSICIAN ASSISTANT CPT-TCMM Transitional Care Mgmt-Moderate 11:20:16 SURGICAL PHYSICIAN ASSISTANT CPT-65824 First Vx - Ix admin for Medicare patients 17:35:15 CDT CPT-21252 Fluzone Preservative Free Intramuscular Suspension 17:35 :15 CDT CPT-88551 Microalbumin - LAB USE ONLY 11:52:05 CDT CPT-TCMM Transitional Care Mgmt-Moderate 11:33:57 CDT CPT-26862 No Charge Offi Visit 14:11:29 CDT CPT-73576 Magnesium - LAB USE ONLY 10:45:44 CDT CPT-26293 Lipid - LAB USE ONLY 10:45:44 CDT CPT-38904 CBC - LAB USE ONLY 10:45:44 CDT CPT-30364 Venipuncture Draw Fee 10:45:43 CDT CPT-45553 Venipuncture Draw Fee 18:21:27 CDT CPT-JTINJ Asp/Joint Injection 18:38:04 CDT CPT-59145 Immunization Each Additional Inj 17:38:04 CDT CPT-63177 Immunization Single Admin 17:38:04 CDT CPT-27375 Prevnar 13 17:38:04 CDT CPT-46137 Fluzone Quadrivalent preservative free (>=3yrs.) 17:38: 04 CDT CPT-18816 No Charge Offi Visit 11:14:03 CDT CPT-67182 Chest 2V Frontal and Lat 14:00:18 CDT CPT-OV Office Visit 16:10:28 CDT CPT-JTINJ Asp/Joint Injection 09:03:57 CDT CPT-Cryo Cryotherapy 09:35:49 SURGICAL PHYSICIAN ASSISTANT CPT-JTINJ Asp/Joint Injection 09:34:45 SURGICAL PHYSICIAN ASSISTANT CPT-J2930 Solu Medrol 125 mg (Methyl Prednisolone Sodium Succinate) 20:37:27 CDT CPT-38659 Abx/Therapy Injection 20:37:27 CDT CPT-63194 Port a cath flush 08:15:51 CDT CPT-22981 Port a cath flush 09:54:16 CDT CPT-01293 Port a cath flush 09:38:02 CDT CPT-68963 Port a cath flush 11:00:27 SURGICAL PHYSICIAN ASSISTANT
--- OUTSIDE RECORDS SUMMARY | 2017-12-29 01:32 | XMS REPORT | Clinical Summary ---
Author Author Admin, QIE Organization [facility] Address Unknown Phone Unavailable Allergies, Adverse [...] keratosis COPD, acute exacerbation 491.21 Active Harinder Hernadnez DO Obstructive chronic bronchitis with (acute) exacerbation [...] MG/0.3ML INJ SOAJ 1 INJ NEEDED EPINEPHRINE 29710503252 Active Tawnya Pardo MA Active PREDNISONE 20 MG TAB 1 tab twice daily for 3 day, then one daily for three days PREDNISONE 34227277097 No Longer Active Harinder Hernandez DO Active PREDNISONE 20 MG TAB 1 tablet twice daily for 2 days, then 1 tablet once daily for 2 days PREDNISONE 57133634522 No Longer Active Harinder Hernandez DO Active ASMANEX 120 METERED DOSES 220 MCG/INH INH AEPB 2 puffs orally twice daily MOMETASONE FUROATE 00612925639 Active Jeri Sosa RPT,RMA Active NIFEDIPINE ER 30 MG ORAL [id number] 1 daily NIFEDIPINE 80919821478 Active Tawnya Pardo MA Active TOPIRAMATE 25 MG TABS 1 tab po BID TOPIRAMATE 44820882400 No Longer Active Nettie Newberry APRN Active AMLODIPINE BESYLATE 5 MG ORAL TABS Take 1 tab po daily AMLODIPINE BESYLATE 58613755834 No Longer Active Nettie Newberry APRN Active MECLIZINE HCL 25 MG TAB 1 tablet three times daily for 3 days, then 1/2 tab three times daily for 3 days. MECLIZINE HCL 89330257451 No Longer Active Nettie Newberry APRN Active AMITRIPTYLINE HCL 25 MG ORAL TABS 1 q hs prn AMITRIPTYLINE HCL 67852704597 No Longer Active Nettie Newberry APRN Active DILAUDID 2 MG ORAL TABS Take 1/2 tab po every 4 hours as needed for pain 2014 HYDROMORPHONE HCL 39080515894 No Longer Active Nettie Newberry APRN Active CLOPIDOGREL BISULFATE 75 MG ORAL TABS 1 tab by mouth once daily CLOPIDOGREL BISULFATE 56605542189 Active Tawnya Pardo MA Active ATORVASTATIN CALCIUM 10 MG ORAL TABS 1 at bedtime ATORVASTATIN CALCIUM 82762152270 Active Tawnya Pardo MA Active LOVASTATIN 40 MG ORAL TABS Take 1 tab po every hs LOVASTATIN 46504991823 No Longer Active Harinder Hernandez DO Active PREDNISONE 20 MG TAB 2 tabs daily for 4 days, 1 tab daily for 4 days, 1/2 tab daily for 4 days PREDNISONE 58366163052 No Longer Active Harinder Hernandez DO Active LEVAQUIN 500 MG ORAL TABS Take 1 tab po daily x 8 days LEVOFLOXACIN 05055922949 No Longer Active Harinder Hernandez DO Active VENTOLIN HFA 108 (90 BASE) MCG/ACT AERS 2 -4 puffs four times a day PRN 2013 ALBUTEROL SULFATE 81872485933 No Longer Active Jeri Sosa RPT,RMA Active ACEBUTOLOL HCL 200 MG CAPS 1 cap in the morning and 2 caps in the evening ACEBUTOLOL HCL 68849548404 No Longer Active Harinder Hernandez DO Active CEFDINIR 300 MG ORAL CAPS take 1 cap po bid x 10 days CEFDINIR 46344240646 No Longer Active Harinder Hernandez DO Active LOVASTATIN 40 MG TABS 1 pill by mouth nightly for cholesterol LOVASTATIN 85443982183 No Longer Active Nettie Newberry APRN Active NITROSTAT 0.4 MG SUBL 1 tab under tongueas needed for chest pain ( may take 3 total, 5 min apart, then call 911) NITROGLYCERIN 73051607493 No Longer Active Nettie Newberry APRN Active POTASSIUM CHLORIDE CR 10 MEQ CPCR 1 capsule by mouth daily 02/14 POTASSIUM CHLORIDE 60150943730 No Longer Active Nettie Newberry APRN Active TESSALON PERLES 100 MG CAP 1 to 2 tablets by mouth 3 times daily as needed for cough BENZONATATE 87835137371 No Longer Active Nettie Newberry APRN Active THEOPHYLLINE ER 200 MG ORAL [id number] Take 1 tab every 12 hours THEOPHYLLINE 81174766181 Active Tawnya Pardo MA Active PREDNISONE 20 MG TAB 2 po qd x 5 days PREDNISONE 57010371212 No Longer Active Jae Morgan MD Active AZITHROMYCIN 250 MG TABS 2 po qd x 1 day, then 1 po qd x 4 days AZITHROMYCIN 59764287448 No Longer Active Jae Morgan MD Active PREDNISONE 20 MG TAB 1 tab twice daily for 3 day, then one daily for three days PREDNISONE 03292842677 No Longer Active Jae Morgan MD Active SINGULAIR 10 MG TABS 1 pill by mouth every evening for breathing. MONTELUKAST SODIUM 05982034752 Active Tawnya Pardo MA Active TYLENOL 325 MG TAB 3 by mouth q4h as needed ACETAMINOPHEN 47548316477 Active Harinder Hernandez DO Active POTASSIUM CHLORIDE ER 10 MEQ CR-TABS take 1 tab po daily POTASSIUM CHLORIDE 89105944138 No Longer Active Harinder Hernandez DO Active PREDNISONE 20 MG TAB 1 TID x 2 days, then 1 BID x 3 days, then 1 Daily x 3 days, then stop PREDNISONE 53251906352 No Longer Active John Montemayor APRN Active LEVAQUIN 500 MG TAB 1 tablet by mouth daily LEVOFLOXACIN 14738998577 No Longer Active Jillkvng Montemayor APRN Active NEURONTIN 300 MG CAP 1 cap by mouth three times daily for restless leg 06/22 GABAPENTIN 17567964099 No Longer Active Harinder Hernandez DO Active BENZONATATE 100 MG CAPS 1 cap po TID PRN BENZONATATE 07292043473 No Longer Active Harinder Hernandez DO Active MONTELUKAST SODIUM 10 MG TABS 1 tab po in the evening MONTELUKAST SODIUM 86440372313 No Longer Active Harinder Hernandez DO Active MUPIROCIN 2 % OINT apply to affected area BID x 14 days MUPIROCIN 51252647564 No Longer Active Harinder Hernandez DO Active TYLENOL EXTRA STRENGTH 500 MG TABS as needed ACETAMINOPHEN 18603885644 No Longer Active Harinder Hernandez DO Active PREDNISONE 10 MG TABS 1 tab po daily PREDNISONE 49491910901 No Longer Active Harinder Hernandez DO Active PREDNISONE 20 MG TAB 2 tabs daily for 4 days, 1 tab daily for 4 days, 1/2 tab daily for 4 days PREDNISONE 98117784909 No Longer Active Harinedr Hernandez DO Active AZITHROMYCIN 250 MG TABS 2 po qd x 1 day, then 1 po qd x 4 days AZITHROMYCIN 53934398488 No Longer Active Harinder Hernandez DO Active PREDNISONE 20 MG TAB 3 tabs today, then 1 tab twice daily for 3 day, then one daily for three days PREDNISONE 20714131209 No Longer Active Harinder Hernandez DO Active NIFEDIAC CC 30 MG [id number] 1 tablet daily for raynaud's syndrome NIFEDIPINE 31489525621 No Longer Active Tawnya Pardo MA Active AMBIEN 10 MG TAB 1/2 tab by mouth at bedtime as needed for sleep ZOLPIDEM TARTRATE 59706584347 Active Harinder Hernandez DO Active CLONAZEPAM 1 MG TABS 1 tablet at bedtime for insomnia and restless legs 09/14 CLONAZEPAM 41366371452 Active Kaylah Newberry Active CLONAZEPAM 0.5 MG TABS 1 tab po daily CLONAZEPAM 23132323649 No Longer Active Harinder Hernandez DO Active PREDNISONE 10 MG TAB 1 tablet daily for COPD PREDNISONE 73318181756 Active Tawnya Pardo MA Active PROAIR HFA 108 (90 BASE) MCG/ACT AERS 2 puffs four times a day as needed 2012 ALBUTEROL SULFATE 38466575478 Active Tawnya Pardo MA Active FLOVENT HFA 110 MCG/ACT AERO 2 puffs inhaled b.i.d. FLUTICASONE PROPIONATE HFA 17117276907 Active Tawnya Pardo MA Active ACIPHEX 20 MG TBEC 1 tab po daily RABEPRAZOLE SODIUM 74744110493 Active Tawnya Pardo MA Active CLONAZEPAM 0.5 MG TABS 1 tab po daily CLONAZEPAM 0.5 MG TABS 749373 CLONAZEPAM Inactive PREDNISONE 20 MG TAB 3 tabs today, then 1 tab twice daily for 3 day, then one daily for three days PREDNISONE 20 MG TAB 153065 PREDNISONE Inactive PREDNISONE 20 MG TAB 2 tabs daily for 4 days, 1 tab daily for 4 days, 1/2 tab daily for 4 days PREDNISONE 20 MG TAB 291682 PREDNISONE Inactive PREDNISONE 10 MG TABS 1 tab po daily PREDNISONE 10 MG TABS 698234 PREDNISONE Inactive TYLENOL EXTRA STRENGTH 500 MG TABS as needed TYLENOL EXTRA STRENGTH 500 MG TABS 499374 ACETAMINOPHEN Inactive MUPIROCIN 2 % OINT apply to affected area BID x 14 days MUPIROCIN 2 % OINT 486709 MUPIROCIN Inactive MONTELUKAST SODIUM 10 MG TABS 1 tab po in the evening MONTELUKAST SODIUM 10 MG TABS 067521 MONTELUKAST SODIUM Inactive BENZONATATE 100 MG CAPS 1 cap po TID PRN BENZONATATE 100 MG CAPS 070149 BENZONATATE Inactive NEURONTIN 300 MG CAP 1 cap by mouth three times daily for restless leg 06/22 NEURONTIN 300 MG CAP 588453 GABAPENTIN Inactive LEVAQUIN 500 MG TAB 1 tablet by mouth daily LEVAQUIN 500 MG TAB 389080 LEVOFLOXACIN Inactive PREDNISONE 20 MG TAB 1 TID x 2 days, then 1 BID x 3 days, then 1 Daily x 3 days, then stop PREDNISONE 20 MG TAB 049180 PREDNISONE Inactive POTASSIUM CHLORIDE ER 10 MEQ CR-TABS take 1 tab po daily POTASSIUM CHLORIDE ER 10 MEQ CR-TABS POTASSIUM CHLORIDE Inactive PREDNISONE 20 MG TAB 1 tab twice daily for 3 day, then one daily for three days PREDNISONE 20 MG TAB 936339 PREDNISONE Inactive TESSALON PERLES 100 MG CAP 1 to 2 tablets by mouth 3 times daily as needed for cough TESSALON PERLES 100 MG CAP 483285 BENZONATATE Inactive POTASSIUM CHLORIDE CR 10 MEQ CPCR 1 capsule by mouth daily 02/14 POTASSIUM CHLORIDE CR 10 MEQ CPCR POTASSIUM CHLORIDE Inactive NITROSTAT 0.4 MG SUBL 1 tab under tongueas needed for chest pain ( may take 3 total, 5 min apart, then call 911) NITROSTAT 0.4 MG SUBL 789897 NITROGLYCERIN Inactive LOVASTATIN 40 MG TABS 1 pill by mouth nightly for cholesterol LOVASTATIN 40 MG TABS 909389 LOVASTATIN Inactive CEFDINIR 300 MG ORAL CAPS take 1 cap po bid x 10 days CEFDINIR 300 MG ORAL CAPS 445789 CEFDINIR Inactive ACEBUTOLOL HCL 200 MG CAPS 1 cap in the morning and 2 caps in the evening ACEBUTOLOL HCL 200 MG CAPS 998374 ACEBUTOLOL HCL Inactive VENTOLIN HFA 108 (90 BASE) MCG/ACT AERS 2 -4 puffs four times a day PRN 2013 VENTOLIN HFA 108 (90 BASE) MCG/ACT AERS ALBUTEROL SULFATE Inactive LEVAQUIN 500 MG ORAL TABS Take 1 tab po daily x 8 days LEVAQUIN 500 MG ORAL TABS 340525 LEVOFLOXACIN Inactive PREDNISONE 20 MG TAB 2 tabs daily for 4 days, 1 tab daily for 4 days, 1/2 tab daily for 4 days PREDNISONE 20 MG TAB 104240 PREDNISONE Inactive LOVASTATIN 40 MG ORAL TABS Take 1 tab po every hs LOVASTATIN 40 MG ORAL TABS 860186 LOVASTATIN Inactive DILAUDID 2 MG ORAL TABS Take 1/2 tab po every 4 hours as needed for pain 2014 DILAUDID 2 MG ORAL TABS 684423 HYDROMORPHONE HCL Inactive AMITRIPTYLINE HCL 25 MG ORAL TABS 1 q hs prn AMITRIPTYLINE HCL 25 MG ORAL TABS 400067 AMITRIPTYLINE HCL Inactive MECLIZINE HCL 25 MG TAB 1 tablet three times daily for 3 days, then 1/2 tab three times daily for 3 days. MECLIZINE HCL 25 MG TAB 164518 MECLIZINE HCL Inactive AMLODIPINE BESYLATE 5 MG ORAL TABS Take 1 tab po daily AMLODIPINE BESYLATE 5 MG ORAL TABS 440814 AMLODIPINE BESYLATE Inactive TOPIRAMATE 25 MG TABS 1 tab po BID TOPIRAMATE 25 MG TABS 633992 TOPIRAMATE Inactive PREDNISONE 20 MG TAB 1 tablet twice daily for 2 days, then 1 tablet once daily for 2 days PREDNISONE 20 MG TAB 172214 PREDNISONE Inactive PREDNISONE 20 MG TAB 1 tab twice daily for 3 day, then one daily for three days PREDNISONE 20 MG TAB 626648 PREDNISONE Inactive AZITHROMYCIN 250 MG TABS 2 po qd x 1 day, then 1 po qd x 4 days AZITHROMYCIN 250 MG TABS 7236952 AZITHROMYCIN Inactive AZITHROMYCIN 250 MG TABS 2 po qd x 1 day, then 1 po qd x 4 days AZITHROMYCIN 250 MG TABS 0879245 AZITHROMYCIN Inactive PREDNISONE 20 MG TAB 2 po qd x 5 days PREDNISONE 20 MG TAB 632945 PREDNISONE Inactive Vital Signs Date Name Value [...] Magnesium - Chemistry cholesterol, serum 180 mg/dL [phone]/08/08 triglyceride, serum, fasting 92 mg/dL 30-200 HDL cholesterol, serum 66 mg/dL 32-96 LDL cholesterol, serum 96 mg/dL 0-130 sodium, serum 142 mmol/L [phone]/08/08 carbon dioxide, venous blood 27.4 mmol/L 21.0-32.0 [...] 10.0-20.0 Encounters Code Encounter Date Provider Facility CPT-46331 Level 3 Est. Patient 09:58:58 CDT Harinder Cr [facility] CPT-26904 Level 3 Est. Patient 12:37:21 CDT Harinder Cr [facility] CPT-06470 Level 3 Est. Patient 18:37:17 CDT Harinder Cr [facility] CPT-35945 Level 4 Est. Patient 11:15:54 CDT Nettie Newberry [facility] CPT-39067 Level 3 Est. Patient 16:42:24 CDT Harinder Hernandez [facility] CPT-62086 Level 3 Est. Patient 15:03:36 CDT Harinder Hernandez [facility] CPT-20329 Level 3 Est. Patient 15:03:20 CDT Harinder Hernandez [facility] CPT-12144 Level 3 Est. Patient 12:14:34 CDT Harinder Hernandez [facility] CPT-12036 Level 3 Est. Patient 13:47:15 CDT Harinder Hernandez [facility] CPT-41529 Level 3 Est. Patient 14:08:24 CDT Harinder Hernandez [facility] CPT-25372 Level 3 Est. Patient 10:07:15 CDT Harinder Hernandez [facility] CPT-96800 Level 3 Est. Patient 10:06:59 CDT Harinder Hernandez [facility] CPT-71529 Level 3 Est. Patient 15:53:29 CDT Jae Morgan [facility] CPT-04241 Level 3 Est. Patient 17:19:04 CDT Harinder Hernandez [facility] CPT-35175 Level 3 Est. Patient 11:13:01 CDT Harinder Hernandez [facility] CPT-34025 Level 3 Est. Patient 09:03:58 CDT Harinder Hernandez [facility] CPT-02288 Level 3 Est. Patient 14:46:45 SHOW DESIGN SUPERVISOR Harinder Hernandez [facility] CPT-51381 Level 3 Est. Patient 09:35:49 SHOW DESIGN SUPERVISOR Harinder Shaye Hernandez [facility] CPT-99176 Level 3 Est. Patient 09:29:37 SHOW DESIGN SUPERVISOR Harinder Shaye Hernandez [facility] CPT-02567 Level 3 Est. Patient 15:51:07 CDT Harinder Hernandez [facility] CPT-47374 Level 3 Est. Patient 18:13:13 CDT Harinder Hernandez [facility] CPT-60638 Level 3 Est. Patient 10:44:19 CDT Harinder Hernandez [facility] CPT-88209 Level 4 Est. Patient 10:07:19 SHOW DESIGN SUPERVISOR Harinder Cr [facility] CPT-29962 Level 3 Est. Patient 15:59:32 SHOW DESIGN SUPERVISOR Harinder Cr [facility] Procedures Code Procedure Name Date Entry Date Standard Description CPT-TCMM Transitional Care Mgmt-Moderate 11:33:57 CDT CPT-77381 No Charge Offi Visit 14:11:29 CDT CPT-35652 Magnesium - LAB USE ONLY 10:45:44 CDT CPT-02978 Lipid - LAB USE ONLY 10:45:44 CDT CPT-08527 CBC - LAB USE ONLY 10:45:44 CDT CPT-91132 Venipuncture Draw Fee 10:45:43 CDT CPT-72442 Venipuncture Draw Fee 18:21:27 CDT CPT-JTINJ Asp/Joint Injection 18:38:04 CDT CPT-97731 Immunization Each Additional Inj 17:38:04 CDT CPT-32576 Immunization Single Admin 17:38:04 CDT CPT-85304 Prevnar 13 17:38:04 CDT CPT-06450 Fluzone Quadrivalent preservative free (>=3yrs.) 17:38: 04 CDT CPT-06507 No Charge Offi Visit 11:14:03 CDT CPT-90789 Chest 2V Frontal and Lat 14:00:18 CDT CPT-OV Office Visit 16:10:28 CDT CPT-JTINJ Asp/Joint Injection 09:03:57 CDT CPT-Cryo Cryotherapy 09:35:49 SHOW DESIGN SUPERVISOR CPT-JTINJ Asp/Joint Injection 09:34:45 SHOW DESIGN SUPERVISOR CPT-J2930 Solu Medrol 125 mg (Methyl Prednisolone Sodium Succinate) 20:37:27 CDT CPT-93175 Abx/Therapy Injection 20:37:27 CDT CPT-14073 Port a cath flush 08:15:51 CDT CPT-78322 Port a cath flush 09:54:16 CDT CPT-14413 Port a cath flush 09:38:02 CDT CPT-74848 Port a cath flush 11:00:27 SHOW DESIGN SUPERVISOR
--- OUTSIDE RECORDS SUMMARY | 2017-12-29 01:34 | XMS REPORT | Clinical Summary ---
[...] tab SL q5min PRN chest pain NITROGLYCERIN [id number] Active Meenu Alejo LPN Active THEOPHYLLINE ER 300 MG ORAL TABLET EXTENDED RELEASE 12 HOUR 1 po BID THEOPHYLLINE 85355826540 Active Kortney Mccain Active POTASSIUM CHLORIDE ER 20 MEQ ORAL TABLET EXTENDED RELEASE 1 po q day POTASSIUM CHLORIDE 73506677921 Active Kortney Mccain Active POTASSIUM CHLORIDE 20 MEQ ORAL PACKET 1 tab po q day POTASSIUM CHLORIDE 79753328543 No Longer Active Kortney Mccain Active POTASSIUM CHLORIDE ER 10 MEQ ORAL CAPSULE EXTENDED RELEASE 1 capsule BID 2016 POTASSIUM CHLORIDE 02508661888 No Longer Active Kortney Mccain Active LASIX 20 MG ORAL TABLET 1 tablet by mouth every morning FUROSEMIDE 13624496100 No Longer Active Kortney Mccain Active SPIRONOLACTONE 25 MG ORAL TABLET 1 tablet by mouth daily SPIRONOLACTONE 43247682431 Active Kortney Mccain Active FLUOXETINE HCL 10 MG ORAL CAPSULE 1 po qd for depression/anxiety FLUOXETINE HCL 45878137438 Active Harinder Hernandez DO Active VOLTAREN 1 % TRANSDERMAL GEL apply q 6-8 hour to left arm as needed for pain DICLOFENAC SODIUM 61011430937 Active Kortney Mccain Active ALBUTEROL SULFATE (2.5 MG/3ML) 0.083% INHALATION NEBULIZATION SOLUTION 1 vial neb q 4hrs for severe asthma. 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 NIFEDIPINE 64686994790 Active Kortney Mccain Active AMLODIPINE BESYLATE 5 MG ORAL TABLET 1 tablet by mouth daily 2016 AMLODIPINE BESYLATE 81195283842 No Longer Active Harinder Hernandez DO Active TOPAMAX 25 MG ORAL TABLET 1 tab po BID TOPIRAMATE 57623396781 Active Kortney Mccain Active FLUTICASONE PROPIONATE 50 MCG/ACT NASAL SUSPENSION 2 sprays per nostril daily PRN Allergies FLUTICASONE PROPIONATE 06842622591 Active Kortney Mccain Active NIFEDIPINE ER 30 MG ORAL TABLET EXTENDED RELEASE 24 HOUR 1 daily NIFEDIPINE 37292243737 No Longer Active Harinder Hernandez DO Active FLOVENT HFA 110 MCG/ACT INHALATION AEROSOL 2 puffs inhaled b.i.d. FLUTICASONE PROPIONATE HFA 48042932335 Active Harinder Hernandez DO Active EPIPEN 2-BRUNA 0.3 MG/0.3ML INJECTION SOLUTION AUTO-INJECTOR 1 INJ NEEDED EPINEPHRINE 80173269725 Active Kortney Mccain Active PREDNISONE 20 MG ORAL TABLET 1 tab twice daily for 3 day, then one daily for three days PREDNISONE 65340125367 No Longer Active Harinder Hernandez DO Active PREDNISONE 20 MG ORAL TABLET 1 tablet twice daily for 2 days, then 1 tablet once daily for 2 days PREDNISONE 32848991565 No Longer Active Harinder Hernandez DO Active ASMANEX 120 METERED DOSES 220 MCG/INH INHALATION AEROSOL POWDER BREATH ACTIVATED 2 puffs orally twice daily MOMETASONE FUROATE 61201768420 Active Jeri Sosa LPN Active TOPIRAMATE 25 MG ORAL TABLET 1 tab po BID TOPIRAMATE 64413394850 No Longer Active Nettie Newberry APRN Active AMLODIPINE BESYLATE 5 MG ORAL TABLET Take 1 tab po daily AMLODIPINE BESYLATE 25394562662 No Longer Active Nettie Newberry APRN Active MECLIZINE HCL 25 MG ORAL TABLET 1 tablet three times daily for 3 days, then 1/ 2 tab three times daily for 3 days. MECLIZINE HCL 44228948794 No Longer Active Nettieog Newberry APRN Active AMITRIPTYLINE HCL 25 MG ORAL TABLET 1 q hs prn AMITRIPTYLINE HCL 68501255135 No Longer Active Nettieog Newberry APRN Active DILAUDID 2 MG ORAL TABLET Take 1/2 tab po every 4 hours as needed for pain HYDROMORPHONE HCL 52429679478 No Longer Active Nettie Newberry APRN Active CLOPIDOGREL BISULFATE 75 MG ORAL TABLET 1 tab by mouth once daily CLOPIDOGREL BISULFATE 30916142860 Active Harinder Hernandez DO Active ATORVASTATIN CALCIUM 10 MG ORAL TABLET 1 at bedtime ATORVASTATIN CALCIUM 35057531346 Active Kortney Mccain Active LOVASTATIN 40 MG ORAL TABLET Take 1 tab po every hs LOVASTATIN 98448929000 No Longer Active Harinder Hernandez DO Active PREDNISONE 20 MG ORAL TABLET 2 tabs daily for 4 days, 1 tab daily for 4 days, 1/2 tab daily for 4 days PREDNISONE 73084406943 No Longer Active Harinder Hernandez DO Active LEVAQUIN 500 MG ORAL TABLET Take 1 tab po daily x 8 days LEVOFLOXACIN 24790138611 No Longer Active Harinder Hernandez DO Active VENTOLIN HFA 108 (90 Base) MCG/ACT INHALATION AEROSOL SOLUTION 2 -4 puffs four times a day PRN ALBUTEROL SULFATE 72341275764 No Longer Active Jeri Sosa LPN Active ACEBUTOLOL HCL 200 MG ORAL CAPSULE 1 cap in the morning and 2 caps in the evening ACEBUTOLOL HCL 38214742422 No Longer Active Harinder Hernandez DO Active CEFDINIR 300 MG ORAL CAPSULE take 1 cap po bid x 10 days CEFDINIR 99522352922 No Longer Active Harinder Hernandez DO Active LOVASTATIN 40 MG ORAL TABLET 1 pill by mouth nightly for cholesterol LOVASTATIN 92610115579 No Longer Active Nettie Newberry APRN Active NITROSTAT 0.4 MG SUBLINGUAL TABLET SUBLINGUAL 1 tab under tongueas needed for chest pain ( may take 3 total, 5 min apart, then call 911) NITROGLYCERIN 45706128399 No Longer Active Nettie Newberry APRN Active POTASSIUM CHLORIDE ER 10 MEQ ORAL CAPSULE EXTENDED RELEASE 1 capsule by mouth daily POTASSIUM CHLORIDE 44877707608 No Longer Active Nettie Newberry APRN Active TESSALON PERLES 100 MG ORAL CAPSULE 1 to 2 tablets by mouth 3 times daily as needed for cough BENZONATATE 41516760316 No Longer Active Nettie Newberry APRN Active PREDNISONE 20 MG ORAL TABLET 2 po qd x 5 days PREDNISONE 81360836989 No Longer Active Jae Morgan MD Active AZITHROMYCIN 250 MG ORAL TABLET 2 po qd x 1 day, then 1 po qd x 4 days 12/30 AZITHROMYCIN 11039973866 No Longer Active Jae Morgan MD Active PREDNISONE 20 MG ORAL TABLET 1 tab twice daily for 3 day, then one daily for three days PREDNISONE 40190882597 No Longer Active Jae Morgan MD Active SINGULAIR 10 MG ORAL TABLET 1 pill by mouth every evening for breathing. 2014 MONTELUKAST SODIUM 72234576932 Active Kortney Mccain Active TYLENOL 325 MG ORAL TABLET 3 by mouth q4h as needed ACETAMINOPHEN 76138048688 Active Harinder Hernandez DO Active POTASSIUM CHLORIDE ER 10 MEQ ORAL TABLET EXTENDED RELEASE take 1 tab po daily POTASSIUM CHLORIDE 39740015730 No Longer Active Harinder Hernandez DO Active PREDNISONE 20 MG ORAL TABLET 1 TID x 2 days, then 1 BID x 3 days, then 1 Daily x 3 days, then stop PREDNISONE 84537582145 No Longer Active John Montemayor APRN Active LEVAQUIN 500 MG ORAL TABLET 1 tablet by mouth daily LEVOFLOXACIN 68228405942 No Longer Active Jillina Frazell RESOURCE MANAGEMENT SPECIALIST Active NEURONTIN 300 MG ORAL CAPSULE 1 cap by mouth three times daily for restless leg GABAPENTIN 11806431631 No Longer Active Harinder Hernandez DO Active BENZONATATE 100 MG ORAL CAPSULE 1 cap po TID PRN BENZONATATE 87387308470 No Longer Active Harinder Hernandez DO Active MONTELUKAST SODIUM 10 MG ORAL TABLET 1 tab po in the evening 2014 MONTELUKAST SODIUM 21737345820 No Longer Active Harinder Hernandez DO Active MUPIROCIN 2 % EXTERNAL OINTMENT apply to affected area BID x 14 days MUPIROCIN 15332617435 No Longer Active Harinder Hernandez DO Active TYLENOL EXTRA STRENGTH 500 MG ORAL TABLET as needed ACETAMINOPHEN 29065538060 No Longer Active Harinder Hernandez DO Active PREDNISONE 10 MG ORAL TABLET 1 tab po daily PREDNISONE 09088348152 No Longer Active Harinder Hernandez DO Active PREDNISONE 20 MG ORAL TABLET 2 tabs daily for 4 days, 1 tab daily for 4 days, 1/2 tab daily for 4 days PREDNISONE 95193089467 No Longer Active Harinder Hernandez DO Active AZITHROMYCIN 250 MG ORAL TABLET 2 po qd x 1 day, then 1 po qd x 4 days 04/06 AZITHROMYCIN 90844674802 No Longer Active Harinder Hernandez DO Active PREDNISONE 20 MG ORAL TABLET 3 tabs today, then 1 tab twice daily for 3 day, then one daily for three days PREDNISONE 15859345267 No Longer Active Harinder Hernandez DO Active NIFEDIAC CC 30 MG ORAL TABLET EXTENDED RELEASE 24 HOUR 1 tablet daily for raynaud's syndrome NIFEDIPINE 21561563558 No Longer Active Tawnya Pardo MA Active AMBIEN 10 MG ORAL TABLET 1/2 tab by mouth at bedtime as needed for sleep 2013 ZOLPIDEM TARTRATE 35091412116 Active Kortney Mccain Active CLONAZEPAM 1 MG ORAL TABLET 1 tablet at bedtime for insomnia and restless legs CLONAZEPAM 66826770138 Active Harinder Hernandez DO Active CLONAZEPAM 0.5 MG ORAL TABLET 1 tab po daily CLONAZEPAM 47849520728 No Longer Active Harinder Hernandez DO Active PREDNISONE 10 MG ORAL TABLET 1 tablet daily for COPD PREDNISONE 08047023137 Active Kortney Mccain Active PROAIR HFA 108 (90 Base) MCG/ACT INHALATION AEROSOL SOLUTION 2 puffs four times a day as needed ALBUTEROL SULFATE 69746708728 Active Harinder Hernandez DO Active FLOVENT HFA 110 MCG/ACT INHALATION AEROSOL 2 puffs inhaled b.i.d. FLUTICASONE PROPIONATE HFA 97282331889 Active Kortney Mccain Active ACIPHEX 20 MG ORAL TABLET DELAYED RELEASE 1 tab po daily RABEPRAZOLE SODIUM 98068019501 Active Kaylah Newberry Active CLONAZEPAM 0.5 MG ORAL TABLET 1 tab po daily CLONAZEPAM 0.5 MG ORAL TABLET 573719 CLONAZEPAM Inactive PREDNISONE 20 MG ORAL TABLET 3 tabs today, then 1 tab twice daily for 3 day, then one daily for three days PREDNISONE 20 MG ORAL TABLET 626659 PREDNISONE Inactive PREDNISONE 20 MG ORAL TABLET 2 tabs daily for 4 days, 1 tab daily for 4 days, 1/2 tab daily for 4 days PREDNISONE 20 MG ORAL TABLET 291961 PREDNISONE Inactive PREDNISONE 10 MG ORAL TABLET 1 tab po daily PREDNISONE 10 MG ORAL TABLET 144556 PREDNISONE Inactive TYLENOL EXTRA STRENGTH 500 MG ORAL TABLET as needed TYLENOL EXTRA STRENGTH 500 MG ORAL TABLET 943531 ACETAMINOPHEN Inactive MUPIROCIN 2 % EXTERNAL OINTMENT apply to affected area BID x 14 days MUPIROCIN 2 % EXTERNAL OINTMENT 914989 MUPIROCIN Inactive MONTELUKAST SODIUM 10 MG ORAL TABLET 1 tab po in the evening 2014 MONTELUKAST SODIUM 10 MG ORAL TABLET 427089 MONTELUKAST SODIUM Inactive BENZONATATE 100 MG ORAL CAPSULE 1 cap po TID PRN BENZONATATE 100 MG ORAL CAPSULE 501656 BENZONATATE Inactive NEURONTIN 300 MG ORAL CAPSULE 1 cap by mouth three times daily for restless leg NEURONTIN 300 MG ORAL CAPSULE 559828 GABAPENTIN Inactive LEVAQUIN 500 MG ORAL TABLET 1 tablet by mouth daily LEVAQUIN 500 MG ORAL TABLET 313282 LEVOFLOXACIN Inactive PREDNISONE 20 MG ORAL TABLET 1 TID x 2 days, then 1 BID x 3 days, then 1 Daily x 3 days, then stop PREDNISONE 20 MG ORAL TABLET 869845 PREDNISONE Inactive POTASSIUM CHLORIDE ER 10 MEQ ORAL TABLET EXTENDED RELEASE take 1 tab po daily POTASSIUM CHLORIDE ER 10 MEQ ORAL TABLET EXTENDED RELEASE POTASSIUM CHLORIDE Inactive PREDNISONE 20 MG ORAL TABLET 1 tab twice daily for 3 day, then one daily for three days PREDNISONE 20 MG ORAL TABLET 210787 PREDNISONE Inactive TESSALON PERLES 100 MG ORAL CAPSULE 1 to 2 tablets by mouth 3 times daily as needed for cough TESSALON PERLES 100 MG ORAL CAPSULE 537080 BENZONATATE Inactive POTASSIUM CHLORIDE ER 10 MEQ ORAL CAPSULE EXTENDED RELEASE 1 capsule by mouth daily POTASSIUM CHLORIDE ER 10 MEQ ORAL CAPSULE EXTENDED RELEASE POTASSIUM CHLORIDE Inactive NITROSTAT 0.4 MG SUBLINGUAL TABLET SUBLINGUAL 1 tab under tongueas needed for chest pain ( may take 3 total, 5 min apart, then call 911) NITROSTAT 0.4 MG SUBLINGUAL TABLET SUBLINGUAL 785850 NITROGLYCERIN Inactive LOVASTATIN 40 MG ORAL TABLET 1 pill by mouth nightly for cholesterol LOVASTATIN 40 MG ORAL TABLET 836742 LOVASTATIN Inactive CEFDINIR 300 MG ORAL CAPSULE take 1 cap po bid x 10 days CEFDINIR 300 MG ORAL CAPSULE 005037 CEFDINIR Inactive ACEBUTOLOL HCL 200 MG ORAL CAPSULE 1 cap in the morning and 2 caps in the evening ACEBUTOLOL HCL 200 MG ORAL CAPSULE 242500 ACEBUTOLOL HCL Inactive VENTOLIN HFA 108 (90 Base) MCG/ACT INHALATION AEROSOL SOLUTION 2 -4 puffs four times a day PRN VENTOLIN HFA 108 (90 Base) MCG/ ACT INHALATION AEROSOL SOLUTION ALBUTEROL SULFATE Inactive LEVAQUIN 500 MG ORAL TABLET Take 1 tab po daily x 8 days LEVAQUIN 500 MG ORAL TABLET 896798 LEVOFLOXACIN Inactive PREDNISONE 20 MG ORAL TABLET 2 tabs daily for 4 days, 1 tab daily for 4 days, 1/2 tab daily for 4 days PREDNISONE 20 MG ORAL TABLET 971971 PREDNISONE Inactive LOVASTATIN 40 MG ORAL TABLET Take 1 tab po every hs LOVASTATIN 40 MG ORAL TABLET 487493 LOVASTATIN Inactive DILAUDID 2 MG ORAL TABLET Take 1/2 tab po every 4 hours as needed for pain DILAUDID 2 MG ORAL TABLET 277275 HYDROMORPHONE HCL Inactive AMITRIPTYLINE HCL 25 MG ORAL TABLET 1 q hs prn AMITRIPTYLINE HCL 25 MG ORAL TABLET 228491 AMITRIPTYLINE HCL Inactive MECLIZINE HCL 25 MG ORAL TABLET 1 tablet three times daily for 3 days, then 1/ 2 tab three times daily for 3 days. MECLIZINE HCL 25 MG ORAL TABLET 855036 MECLIZINE HCL Inactive AMLODIPINE BESYLATE 5 MG ORAL TABLET Take 1 tab po daily AMLODIPINE BESYLATE 5 MG ORAL TABLET 998828 AMLODIPINE BESYLATE Inactive TOPIRAMATE 25 MG ORAL TABLET 1 tab po BID TOPIRAMATE 25 MG ORAL TABLET 530941 TOPIRAMATE Inactive PREDNISONE 20 MG ORAL TABLET 1 tablet twice daily for 2 days, then 1 tablet once daily for 2 days PREDNISONE 20 MG ORAL TABLET 898724 PREDNISONE Inactive PREDNISONE 20 MG ORAL TABLET 1 tab twice daily for 3 day, then one daily for three days PREDNISONE 20 MG ORAL TABLET 729396 PREDNISONE Inactive NIFEDIPINE ER 30 MG ORAL TABLET EXTENDED RELEASE 24 HOUR 1 daily NIFEDIPINE ER 30 MG ORAL TABLET EXTENDED RELEASE 24 HOUR NIFEDIPINE Inactive AMLODIPINE BESYLATE 5 MG ORAL TABLET 1 tablet by mouth daily 2016 AMLODIPINE BESYLATE 5 MG ORAL TABLET 123039 AMLODIPINE BESYLATE Inactive LASIX 20 MG ORAL TABLET 1 tablet by mouth every morning LASIX 20 MG ORAL TABLET 336049 FUROSEMIDE Inactive POTASSIUM CHLORIDE ER 10 MEQ ORAL CAPSULE EXTENDED RELEASE 1 capsule BID 2016 POTASSIUM CHLORIDE ER 10 MEQ ORAL CAPSULE EXTENDED RELEASE POTASSIUM CHLORIDE Inactive POTASSIUM CHLORIDE 20 MEQ ORAL PACKET 1 tab po q day POTASSIUM CHLORIDE 20 MEQ ORAL PACKET 6090895 POTASSIUM CHLORIDE Inactive AZITHROMYCIN 250 MG ORAL TABLET 2 po qd x 1 day, then 1 po qd x 4 days 04/06 AZITHROMYCIN 250 MG ORAL TABLET 692075 AZITHROMYCIN Inactive AZITHROMYCIN 250 MG ORAL TABLET 2 po qd x 1 day, then 1 po qd x 4 days 12/30 AZITHROMYCIN 250 MG ORAL TABLET 598865 AZITHROMYCIN Inactive PREDNISONE 20 MG ORAL TABLET 2 po qd x 5 days PREDNISONE 20 MG ORAL TABLET 455963 PREDNISONE Inactive Vital Signs Date Name Value [...] Panel - Chemistry sodium, serum 137 mmol/L 011-272 3173/01/03 potassium, serum 3.4 mmol/L 3.5-5.2 chloride, serum 102 mmol/L 98-107 carbon dioxide, venous blood 29.2 mmol/L 21.0-32.0 blood glucose 87 mg/dL 65-110 calcium, serum 8.5 mg/dL 8.5-10.1 urea nitrogen, blood 8 mg/dL 7-18 creatinine, serum 0.82 mg/dL 0.55-1.30 sodium, serum 140 mmol/L 170-981 2830/07/13 potassium, serum 3.2 mmol/L 3.5-5.2 chloride, serum 103 mmol/L 98-107 carbon dioxide, venous blood 26.9 mmol/L 21.0-32.0 blood glucose 93 mg/dL 65-110 calcium, serum 9.2 mg/dL 8.5-10.1 urea nitrogen, blood 13 mg/dL 7-18 creatinine, serum 0.84 mg/dL 0.60-1.30 sodium, serum 140 mmol/L 145-198 2847/08/21 potassium, serum 3.8 mmol/L 3.5-5.2 chloride, serum [...] ... - Chemistry sodium, serum 141 mmol/L 004-650 7047/08/07 carbon dioxide, venous blood 34.0 mmol/L 21.0-32.0 [...] 1.40 mg/dL 0.00-1.00 cholesterol, serum 192 mg/dL 177-963 4206/10/19 triglyceride, serum, fasting 71 mg/dL 30-200 HDL cholesterol, serum 72 mg/dL 32-60 LDL cholesterol, serum 106 mg/dL 0-130 Lab Report: THEOPHYLLINE - Toxicology theophylline level, serum 3.1 ug/mL 10.0-20.0 Encounters Code Encounter Date Provider Facility CPT-04391 Level 4 Est. Patient 14:45:25 CDT Harinder Hernandez DO [facility] CPT-38821 Level 4 Est. Patient 09:15:13 CDT Harinder Hernandez [facility] CPT-00134 Level 3 Est. Patient 11:51:58 CDT Harinder Hernandez [facility] CPT-08027 Level 3 Est. Patient 11:30:05 CDT Harinder Hernandez [facility] CPT-63173 Level 4 Est. Patient 10:19:23 CDT Harinder Hernandez [facility] CPT-06633 Level 3 Est. Patient 09:58:58 CDT Harinder Cr [facility] CPT-87991 Level 3 Est. Patient 12:37:21 CDT Harinder Cr [facility] CPT-07340 Level 3 Est. Patient 18:37:17 CDT Harinder Cr [facility] CPT-36688 Level 4 Est. Patient 11:15:54 CDT Nettie Newberry [facility] CPT-00895 Level 3 Est. Patient 16:42:24 CDT Harinder Cr [facility] CPT-13328 Level 3 Est. Patient 15:03:36 CDT Harinder Cr [facility] CPT-52768 Level 3 Est. Patient 15:03:20 CDT Harinder Cr [facility] CPT-73545 Level 3 Est. Patient 12:14:34 CDT Harinder Hernandez [facility] CPT-03467 Level 3 Est. Patient 13:47:15 CDT Harinder Cr [facility] CPT-74952 Level 3 Est. Patient 14:08:24 CDT Harinder Cr [facility] CPT-73098 Level 3 Est. Patient 10:07:15 CDT Harinder Cr [facility] CPT-13297 Level 3 Est. Patient 10:06:59 CDT Harinder Cr [facility] CPT-38249 Level 3 Est. Patient 15:53:29 CDT Jae Morgan MD [facility] CPT-75539 Level 3 Est. Patient 17:19:04 CDT Harinder Shaye Hernandez [facility] CPT-10088 Level 3 Est. Patient 11:13:01 CDT Harinder Hernandez [facility] CPT-50312 Level 3 Est. Patient 09:03:58 CDT Harinder Hernandez [facility] CPT-52831 Level 3 Est. Patient 14:46:45 ORIENTAL MEDICINE PRACTITIONER Harinder Hernandez [facility] CPT-21435 Level 3 Est. Patient 09:35:49 ORIENTAL MEDICINE PRACTITIONER Harinder Shaye David [facility] CPT-60850 Level 3 Est. Patient 09:29:37 ORIENTAL MEDICINE PRACTITIONER Harinder Shaye [facility] CPT-25739 Level 3 Est. Patient 15:51:07 CDT Harinder Hernandez [facility] CPT-02525 Level 3 Est. Patient 18:13:13 CDT Harinder Hernandez [facility] CPT-20422 Level 3 Est. Patient 10:44:19 CDT Harinder Hernandez [facility] CPT-01204 Level 4 Est. Patient 10:07:19 ORIENTAL MEDICINE PRACTITIONER Harinder Hernandez [facility] CPT-65575 Level 3 Est. Patient 15:59:32 ORIENTAL MEDICINE PRACTITIONER Harinder Cr [facility] Procedures Code Procedure Name Date Entry Date Standard Description CPT-38633 Abd compl w upright - XRAY USE ONLY 14:48:09 CDT 02/18 CPT-79381 Port a cath flush 13:46:05 CDT CPT-49920 Hip, complete, 2-3 views - XRAY USE ONLY 10:28:40 CDT CPT-93173 BMP - LAB USE ONLY 16:45:09 ORIENTAL MEDICINE PRACTITIONER CPT-00558 Port a cath flush 12:00:13 ORIENTAL MEDICINE PRACTITIONER CPT-TCMM Transitional Care Mgmt-Moderate 11:20:16 ORIENTAL MEDICINE PRACTITIONER CPT-10257 First Vx - Ix admin for Medicare patients 17:35:15 CDT CPT-33026 Fluzone Preservative Free Intramuscular Suspension 17:35 :15 CDT CPT-03616 Microalbumin - LAB USE ONLY 11:52:05 CDT CPT-TCMM Transitional Care Mgmt-Moderate 11:33:57 CDT CPT-40241 No Charge Offi Visit 14:11:29 CDT CPT-48108 Magnesium - LAB USE ONLY 10:45:44 CDT CPT-80217 Lipid - LAB USE ONLY 10:45:44 CDT CPT-20315 CBC - LAB USE ONLY 10:45:44 CDT CPT-06927 Venipuncture Draw Fee 10:45:43 CDT CPT-39799 Venipuncture Draw Fee 18:21:27 CDT CPT-JTINJ Asp/Joint Injection 18:38:04 CDT CPT-67996 Immunization Each Additional Inj 17:38:04 CDT CPT-49355 Immunization Single Admin 17:38:04 CDT CPT-28455 Prevnar 13 17:38:04 CDT CPT-25899 Fluzone Quadrivalent preservative free (>=3yrs.) 17:38: 04 CDT CPT-47762 No Charge Offi Visit 11:14:03 CDT CPT-75207 Chest 2V Frontal and Lat 14:00:18 CDT CPT-OV Office Visit 16:10:28 CDT CPT-JTINJ Asp/Joint Injection 09:03:57 CDT CPT-Cryo Cryotherapy 09:35:49 ORIENTAL MEDICINE PRACTITIONER CPT-JTINJ Asp/Joint Injection 09:34:45 ORIENTAL MEDICINE PRACTITIONER CPT-J2930 Solu Medrol 125 mg (Methyl Prednisolone Sodium Succinate) 20:37:27 CDT CPT-07649 Abx/Therapy Injection 20:37:27 CDT CPT-99923 Port a cath flush 08:15:51 CDT CPT-04888 Port a cath flush 09:54:16 CDT CPT-59370 Port a cath flush 09:38:02 CDT CPT-61886 Port a cath flush 11:00:27 ORIENTAL MEDICINE PRACTITIONER
--- OUTSIDE RECORDS SUMMARY | 2017-12-29 01:35 | XMS REPORT | Clinical Summary ---
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 NIFEDIPINE 41299604147 Active Harinder Hernandez DO Active AMLODIPINE BESYLATE 5 MG TABS 1 tablet by mouth daily AMLODIPINE BESYLATE 60605231198 No Longer Active Harinder Hernandez DO Active TOPAMAX 25 MG ORAL TABS 1 tab po BID TOPIRAMATE 36633234508 Active Kortney Mccain Active FLUTICASONE PROPIONATE 50 MCG/ACT SUSP 2 sprays per nostril daily PRN Allergies FLUTICASONE PROPIONATE 13023234922 Active Kortney Mccain Active NIFEDIPINE ER 30 MG ORAL [id number] 1 daily NIFEDIPINE 73011214782 No Longer Active Harinder Hernandez DO Active POTASSIUM CHLORIDE 20 MEQ ORAL PACK Take 1 tablet by mouth daily POTASSIUM CHLORIDE 46826447569 Active Ciera Pimentel Active FLOVENT HFA 110 MCG/ACT AERO 2 puffs inhaled b.i.d. FLUTICASONE PROPIONATE HFA 10684672421 Active Harinder Hernandez DO Active POTASSIUM CHLORIDE CR 10 MEQ CPCR 1 capsule by mouth daily POTASSIUM CHLORIDE 49759851515 Active Harinder Hernandez DO Active EPIPEN 2-BRUNA 0.3 MG/0.3ML INJ SOAJ 1 INJ NEEDED EPINEPHRINE 33695487082 Active Harinder Hernandez DO Active PREDNISONE 20 MG TAB 1 tab twice daily for 3 day, then one daily for three days PREDNISONE 62305105766 No Longer Active Harinder Hernandez DO Active PREDNISONE 20 MG TAB 1 tablet twice daily for 2 days, then 1 tablet once daily for 2 days PREDNISONE 94747977654 No Longer Active Harinder Hernandez DO Active ASMANEX 120 METERED DOSES 220 MCG/INH INH AEPB 2 puffs orally twice daily MOMETASONE FUROATE 41930801117 Active Jeri Sosa RPT,RMA Active TOPIRAMATE 25 MG TABS 1 tab po BID TOPIRAMATE 32600548392 No Longer Active Nettie Newberry APRN Active AMLODIPINE BESYLATE 5 MG ORAL TABS Take 1 tab po daily AMLODIPINE BESYLATE 95347070528 No Longer Active Nettie Newberry APRN Active MECLIZINE HCL 25 MG TAB 1 tablet three times daily for 3 days, then 1/2 tab three times daily for 3 days. MECLIZINE HCL 00222308783 No Longer Active Nettie Newberry APRN Active AMITRIPTYLINE HCL 25 MG ORAL TABS 1 q hs prn AMITRIPTYLINE HCL 95615357253 No Longer Active Nettie Newberry APRN Active DILAUDID 2 MG ORAL TABS Take 1/2 tab po every 4 hours as needed for pain 2014 HYDROMORPHONE HCL 22610081404 No Longer Active Nettie Newberry APRN Active CLOPIDOGREL BISULFATE 75 MG ORAL TABS 1 tab by mouth once daily CLOPIDOGREL BISULFATE 65411082641 Active Harinder Hernandez DO Active ATORVASTATIN CALCIUM 10 MG ORAL TABS 1 at bedtime ATORVASTATIN CALCIUM 87162906212 Active Tawnya Pardo MA Active LOVASTATIN 40 MG ORAL TABS Take 1 tab po every hs LOVASTATIN 76091898234 No Longer Active Harinder Hernandez DO Active PREDNISONE 20 MG TAB 2 tabs daily for 4 days, 1 tab daily for 4 days, 1/2 tab daily for 4 days PREDNISONE 39123420825 No Longer Active Harinder Hernandez DO Active LEVAQUIN 500 MG ORAL TABS Take 1 tab po daily x 8 days LEVOFLOXACIN 08554936554 No Longer Active Harinder Hernandez DO Active VENTOLIN HFA 108 (90 BASE) MCG/ACT AERS 2 -4 puffs four times a day PRN 2013 ALBUTEROL SULFATE 90600098464 No Longer Active Jeri Sosa RPT,RMA Active ACEBUTOLOL HCL 200 MG CAPS 1 cap in the morning and 2 caps in the evening ACEBUTOLOL HCL 74423416614 No Longer Active Harinder Hernandez DO Active CEFDINIR 300 MG ORAL CAPS take 1 cap po bid x 10 days CEFDINIR 12586403196 No Longer Active Harinder Hernandez DO Active LOVASTATIN 40 MG TABS 1 pill by mouth nightly for cholesterol LOVASTATIN 73229911796 No Longer Active Nettie Newberry APRN Active NITROSTAT 0.4 MG SUBL 1 tab under tongueas needed for chest pain ( may take 3 total, 5 min apart, then call 911) NITROGLYCERIN 57139101677 No Longer Active Nettie Newberry APRN Active POTASSIUM CHLORIDE CR 10 MEQ CPCR 1 capsule by mouth daily 02/14 POTASSIUM CHLORIDE 63649957869 No Longer Active Nettie Newberry APRN Active TESSALON PERLES 100 MG CAP 1 to 2 tablets by mouth 3 times daily as needed for cough BENZONATATE 29475518836 No Longer Active Nettie Newberry APRN Active THEOPHYLLINE ER 200 MG ORAL [id number] Take 1 tab every 12 hours THEOPHYLLINE 14123614607 Active Tawnya Pardo MA Active PREDNISONE 20 MG TAB 2 po qd x 5 days PREDNISONE 81583160027 No Longer Active Jae Morgan MD Active AZITHROMYCIN 250 MG TABS 2 po qd x 1 day, then 1 po qd x 4 days AZITHROMYCIN 90794457318 No Longer Active Jae Morgan MD Active PREDNISONE 20 MG TAB 1 tab twice daily for 3 day, then one daily for three days PREDNISONE 78450180902 No Longer Active Jae Morgan MD Active SINGULAIR 10 MG TABS 1 pill by mouth every evening for breathing. MONTELUKAST SODIUM 55630189496 Active Tawnya Pardo MA Active TYLENOL 325 MG TAB 3 by mouth q4h as needed ACETAMINOPHEN 95670673254 Active Harinder Hernandez DO Active POTASSIUM CHLORIDE ER 10 MEQ CR-TABS take 1 tab po daily POTASSIUM CHLORIDE 12867500529 No Longer Active Harinder Hernandez DO Active PREDNISONE 20 MG TAB 1 TID x 2 days, then 1 BID x 3 days, then 1 Daily x 3 days, then stop PREDNISONE 28160167092 No Longer Active Jillina Frazell SEX THERAPIST Active LEVAQUIN 500 MG TAB 1 tablet by mouth daily LEVOFLOXACIN 51046294586 No Longer Active Jillina Frazell SEX THERAPIST Active NEURONTIN 300 MG CAP 1 cap by mouth three times daily for restless leg 06/22 GABAPENTIN 45088126139 No Longer Active Harinder Hernandez DO Active BENZONATATE 100 MG CAPS 1 cap po TID PRN BENZONATATE 63226035445 No Longer Active Harinder Hernandez DO Active MONTELUKAST SODIUM 10 MG TABS 1 tab po in the evening MONTELUKAST SODIUM 24398239807 No Longer Active Harinder Hernandez DO Active MUPIROCIN 2 % OINT apply to affected area BID x 14 days MUPIROCIN 13916975718 No Longer Active Harinder Hernandez DO Active TYLENOL EXTRA STRENGTH 500 MG TABS as needed ACETAMINOPHEN 47572289007 No Longer Active Harinder Hernandez DO Active PREDNISONE 10 MG TABS 1 tab po daily PREDNISONE 42135964573 No Longer Active Harinder Hernandez DO Active PREDNISONE 20 MG TAB 2 tabs daily for 4 days, 1 tab daily for 4 days, 1/2 tab daily for 4 days PREDNISONE 03964703417 No Longer Active Harinder Hernandez DO Active AZITHROMYCIN 250 MG TABS 2 po qd x 1 day, then 1 po qd x 4 days AZITHROMYCIN 47850277596 No Longer Active Harinder Hernandez DO Active PREDNISONE 20 MG TAB 3 tabs today, then 1 tab twice daily for 3 day, then one daily for three days PREDNISONE 02886687730 No Longer Active Harinder Hernandez DO Active NIFEDIAC CC 30 MG [id number] 1 tablet daily for raynaud's syndrome NIFEDIPINE 27328305757 No Longer Active Tawnya Pardo MA Active AMBIEN 10 MG TAB 1/2 tab by mouth at bedtime as needed for sleep ZOLPIDEM TARTRATE 11614630154 Active Ciera Pimentel Active CLONAZEPAM 1 MG TABS 1 tablet at bedtime for insomnia and restless legs 09/14 CLONAZEPAM 70876005887 Active Harinder Hernandez DO Active CLONAZEPAM 0.5 MG TABS 1 tab po daily CLONAZEPAM 57503411906 No Longer Active Harinder Hernandez DO Active PREDNISONE 10 MG TAB 1 tablet daily for COPD PREDNISONE 75994964724 Active Ciera Pimentel Active PROAIR HFA 108 (90 BASE) MCG/ACT AERS 2 puffs four times a day as needed 2012 ALBUTEROL SULFATE 73813718390 Active Harinder Hernandez DO Active FLOVENT HFA 110 MCG/ACT AERO 2 puffs inhaled b.i.d. FLUTICASONE PROPIONATE HFA 69970773305 Active Kortney Mccain Active ACIPHEX 20 MG TBEC 1 tab po daily RABEPRAZOLE SODIUM 04205322245 Active Kaylah Newberry Active CLONAZEPAM 0.5 MG TABS 1 tab po daily CLONAZEPAM 0.5 MG TABS 141825 CLONAZEPAM Inactive PREDNISONE 20 MG TAB 3 tabs today, then 1 tab twice daily for 3 day, then one daily for three days PREDNISONE 20 MG TAB 181436 PREDNISONE Inactive PREDNISONE 20 MG TAB 2 tabs daily for 4 days, 1 tab daily for 4 days, 1/2 tab daily for 4 days PREDNISONE 20 MG TAB 655044 PREDNISONE Inactive PREDNISONE 10 MG TABS 1 tab po daily PREDNISONE 10 MG TABS 467293 PREDNISONE Inactive TYLENOL EXTRA STRENGTH 500 MG TABS as needed TYLENOL EXTRA STRENGTH 500 MG TABS 645506 ACETAMINOPHEN Inactive MUPIROCIN 2 % OINT apply to affected area BID x 14 days MUPIROCIN 2 % OINT 751336 MUPIROCIN Inactive MONTELUKAST SODIUM 10 MG TABS 1 tab po in the evening MONTELUKAST SODIUM 10 MG TABS 20010818 MONTELUKAST SODIUM Inactive BENZONATATE 100 MG CAPS 1 cap po TID PRN BENZONATATE 100 MG CAPS 360690 BENZONATATE Inactive NEURONTIN 300 MG CAP 1 cap by mouth three times daily for restless leg 06/22 NEURONTIN 300 MG CAP 702361 GABAPENTIN Inactive LEVAQUIN 500 MG TAB 1 tablet by mouth daily LEVAQUIN 500 MG TAB 008251 LEVOFLOXACIN Inactive PREDNISONE 20 MG TAB 1 TID x 2 days, then 1 BID x 3 days, then 1 Daily x 3 days, then stop PREDNISONE 20 MG TAB 875375 PREDNISONE Inactive POTASSIUM CHLORIDE ER 10 MEQ CR-TABS take 1 tab po daily POTASSIUM CHLORIDE ER 10 MEQ CR-TABS POTASSIUM CHLORIDE Inactive PREDNISONE 20 MG TAB 1 tab twice daily for 3 day, then one daily for three days PREDNISONE 20 MG TAB 078239 PREDNISONE Inactive TESSALON PERLES 100 MG CAP 1 to 2 tablets by mouth 3 times daily as needed for cough TESSALON PERLES 100 MG CAP 052386 BENZONATATE Inactive POTASSIUM CHLORIDE CR 10 MEQ CPCR 1 capsule by mouth daily 02/14 POTASSIUM CHLORIDE CR 10 MEQ CPCR POTASSIUM CHLORIDE Inactive NITROSTAT 0.4 MG SUBL 1 tab under tongueas needed for chest pain ( may take 3 total, 5 min apart, then call 911) NITROSTAT 0.4 MG SUBL 585422 NITROGLYCERIN Inactive LOVASTATIN 40 MG TABS 1 pill by mouth nightly for cholesterol LOVASTATIN 40 MG TABS 501955 LOVASTATIN Inactive CEFDINIR 300 MG ORAL CAPS take 1 cap po bid x 10 days CEFDINIR 300 MG ORAL CAPS 980780 CEFDINIR Inactive ACEBUTOLOL HCL 200 MG CAPS 1 cap in the morning and 2 caps in the evening ACEBUTOLOL HCL 200 MG CAPS 181152 ACEBUTOLOL HCL Inactive VENTOLIN HFA 108 (90 BASE) MCG/ACT AERS 2 -4 puffs four times a day PRN 2013 VENTOLIN HFA 108 (90 BASE) MCG/ACT AERS ALBUTEROL SULFATE Inactive LEVAQUIN 500 MG ORAL TABS Take 1 tab po daily x 8 days LEVAQUIN 500 MG ORAL TABS 472909 LEVOFLOXACIN Inactive PREDNISONE 20 MG TAB 2 tabs daily for 4 days, 1 tab daily for 4 days, 1/2 tab daily for 4 days PREDNISONE 20 MG TAB 467075 PREDNISONE Inactive LOVASTATIN 40 MG ORAL TABS Take 1 tab po every hs LOVASTATIN 40 MG ORAL TABS 287647 LOVASTATIN Inactive DILAUDID 2 MG ORAL TABS Take 1/2 tab po every 4 hours as needed for pain 2014 DILAUDID 2 MG ORAL TABS 530675 HYDROMORPHONE HCL Inactive AMITRIPTYLINE HCL 25 MG ORAL TABS 1 q hs prn AMITRIPTYLINE HCL 25 MG ORAL TABS 092076 AMITRIPTYLINE HCL Inactive MECLIZINE HCL 25 MG TAB 1 tablet three times daily for 3 days, then 1/2 tab three times daily for 3 days. MECLIZINE HCL 25 MG TAB 131920 MECLIZINE HCL Inactive AMLODIPINE BESYLATE 5 MG ORAL TABS Take 1 tab po daily AMLODIPINE BESYLATE 5 MG ORAL TABS 659601 AMLODIPINE BESYLATE Inactive TOPIRAMATE 25 MG TABS 1 tab po BID TOPIRAMATE 25 MG TABS 200339 TOPIRAMATE Inactive PREDNISONE 20 MG TAB 1 tablet twice daily for 2 days, then 1 tablet once daily for 2 days PREDNISONE 20 MG TAB 381615 PREDNISONE Inactive PREDNISONE 20 MG TAB 1 tab twice daily for 3 day, then one daily for three days PREDNISONE 20 MG TAB 483118 PREDNISONE Inactive NIFEDIPINE ER 30 MG ORAL [id number] 1 daily NIFEDIPINE ER 30 MG ORAL [id number] NIFEDIPINE Inactive AMLODIPINE BESYLATE 5 MG TABS 1 tablet by mouth daily AMLODIPINE BESYLATE 5 MG TABS 892981 AMLODIPINE BESYLATE Inactive AZITHROMYCIN 250 MG TABS 2 po qd x 1 day, then 1 po qd x 4 days AZITHROMYCIN 250 MG TABS 9216441 AZITHROMYCIN Inactive AZITHROMYCIN 250 MG TABS 2 po qd x 1 day, then 1 po qd x 4 days AZITHROMYCIN 250 MG TABS 0893574 AZITHROMYCIN Inactive PREDNISONE 20 MG TAB 2 po qd x 5 days PREDNISONE 20 MG TAB 373122 PREDNISONE Inactive Vital Signs Date Name Value [...] Panel - Chemistry sodium, serum 137 mmol/L 668-932 1648/01/03 potassium, serum 3.4 mmol/L 3.5-5.2 chloride, serum [...] Magnesium - Chemistry cholesterol, serum 180 mg/dL 265-255 6591/08/08 triglyceride, serum, fasting 92 mg/dL 30-200 HDL cholesterol, serum 66 mg/dL 32-96 LDL cholesterol, serum 96 mg/dL 0-130 sodium, serum 142 mmol/L 801-023 6519/08/08 carbon dioxide, venous blood 27.4 mmol/L 21.0-32.0 [...] 10.0-20.0 Encounters Code Encounter Date Provider Facility CPT-48244 Level 4 Est. Patient 10:19:23 CDT Harinder Cr [facility] CPT-73034 Level 3 Est. Patient 09:58:58 CDT Harinder Cr [facility] CPT-51306 Level 3 Est. Patient 12:37:21 CDT Harinder Cr [facility] CPT-48420 Level 3 Est. Patient 18:37:17 CDT Harinder Cr [facility] CPT-44170 Level 4 Est. Patient 11:15:54 CDT Nettie Newberry [facility] CPT-76257 Level 3 Est. Patient 16:42:24 CDT Harinder Cr [facility] CPT-89243 Level 3 Est. Patient 15:03:36 CDT Harinder Cr [facility] CPT-51613 Level 3 Est. Patient 15:03:20 CDT Harinder Cr [facility] CPT-80795 Level 3 Est. Patient 12:14:34 CDT Harinder Hernandez [facility] CPT-99026 Level 3 Est. Patient 13:47:15 CDT Harinder Hernandez [facility] CPT-88566 Level 3 Est. Patient 14:08:24 CDT Harinder Hernandez [facility] CPT-87170 Level 3 Est. Patient 10:07:15 CDT Harinder Hernandez [facility] CPT-52431 Level 3 Est. Patient 10:06:59 CDT Harinder Hernandez [facility] CPT-08476 Level 3 Est. Patient 15:53:29 CDT Jae Morgan [facility] CPT-32071 Level 3 Est. Patient 17:19:04 CDT Harinder Hernandez [facility] CPT-71411 Level 3 Est. Patient 11:13:01 CDT Harinder Hernandez [facility] CPT-38237 Level 3 Est. Patient 09:03:58 CDT Harinder Cr [facility] CPT-18171 Level 3 Est. Patient 14:46:45 HARDWARE TECHNICIAN Harinder Hernandez [facility] CPT-40357 Level 3 Est. Patient 09:35:49 HARDWARE TECHNICIAN Harinder Hernandez [facility] CPT-45611 Level 3 Est. Patient 09:29:37 HARDWARE TECHNICIAN Harinder Hernandez [facility] CPT-81368 Level 3 Est. Patient 15:51:07 CDT Harinder Hernandez [facility] CPT-46176 Level 3 Est. Patient 18:13:13 CDT Harinder Hernandez [facility] CPT-40404 Level 3 Est. Patient 10:44:19 CDT Harinder Cr [facility] CPT-07425 Level 4 Est. Patient 10:07:19 HARDWARE TECHNICIAN Harinder Cr [facility] CPT-89333 Level 3 Est. Patient 15:59:32 HARDWARE TECHNICIAN Harinder Cr [facility] Procedures Code Procedure Name Date Entry Date Standard Description CPT-50356 Hip, complete, 2-3 views - XRAY USE ONLY 10:28:40 CDT CPT-61516 BMP - LAB USE ONLY 16:45:09 HARDWARE TECHNICIAN CPT-09703 Port a cath flush 12:00:13 HARDWARE TECHNICIAN CPT-TCMM Transitional Care Mgmt-Moderate 11:20:16 HARDWARE TECHNICIAN CPT-20773 First Vx - Ix admin for Medicare patients 17:35:15 CDT CPT-24715 Fluzone Preservative Free Intramuscular Suspension 17:35 :15 CDT CPT-08028 Microalbumin - LAB USE ONLY 11:52:05 CDT CPT-TCMM Transitional Care Mgmt-Moderate 11:33:57 CDT CPT-38289 No Charge Offi Visit 14:11:29 CDT CPT-56075 Magnesium - LAB USE ONLY 10:45:44 CDT CPT-56574 Lipid - LAB USE ONLY 10:45:44 CDT CPT-76966 CBC - LAB USE ONLY 10:45:44 CDT CPT-63406 Venipuncture Draw Fee 10:45:43 CDT CPT-81290 Venipuncture Draw Fee 18:21:27 CDT CPT-JTINJ Asp/Joint Injection 18:38:04 CDT CPT-80616 Immunization Each Additional Inj 17:38:04 CDT CPT-51979 Immunization Single Admin 17:38:04 CDT CPT-19432 Prevnar 13 17:38:04 CDT CPT-38246 Fluzone Quadrivalent preservative free (>=3yrs.) 17:38: 04 CDT CPT-82774 No Charge Offi Visit 11:14:03 CDT CPT-32514 Chest 2V Frontal and Lat 14:00:18 CDT CPT-OV Office Visit 16:10:28 CDT CPT-JTINJ Asp/Joint Injection 09:03:57 CDT CPT-Cryo Cryotherapy 09:35:49 HARDWARE TECHNICIAN CPT-JTINJ Asp/Joint Injection 09:34:45 HARDWARE TECHNICIAN CPT-J2930 Solu Medrol 125 mg (Methyl Prednisolone Sodium Succinate) 20:37:27 CDT CPT-39630 Abx/Therapy Injection 20:37:27 CDT CPT-62103 Port a cath flush 08:15:51 CDT CPT-42607 Port a cath flush 09:54:16 CDT CPT-53545 Port a cath flush 09:38:02 CDT CPT-36214 Port a cath flush 11:00:27 HARDWARE TECHNICIAN
--- OUTSIDE RECORDS SUMMARY | 2017-12-29 01:36 | XMS REPORT | Clinical Summary ---
Author Author Admin, QIE Organization [facility] [place] Address Unknown Phone Unavailable Allergies, Adverse Reactions, [...] pain, right lower quadrant 789.03 Resolved Harinder hSaye Hernandez DO Abdominal pain, right lower quadrant [...] then one daily for three days PREDNISONE 56818692598 Active Harinder Hernandez DO Active PREDNISONE 20 MG TAB 1 tablet twice daily for 2 days, then 1 tablet once daily for 2 days PREDNISONE 10675402604 No Longer Active Harinder Hernandez DO Active ASMANEX 120 METERED DOSES 220 MCG/INH INH AEPB 2 puffs orally twice daily MOMETASONE FUROATE 74158915995 Active Jeri Sosa RPT,RMA Active NIFEDIPINE ER 30 MG ORAL [id number] 1 daily NIFEDIPINE 31875919501 Active Tawnya Pardo MA Active TOPIRAMATE 25 MG TABS 1 tab po BID TOPIRAMATE 61166819919 No Longer Active Nettie Newberry APRN Active AMLODIPINE BESYLATE 5 MG ORAL TABS Take 1 tab po daily AMLODIPINE BESYLATE 16837981201 No Longer Active Nettie Newberry APRN Active MECLIZINE HCL 25 MG TAB 1 tablet three times daily for 3 days, then 1/2 tab three times daily for 3 days. MECLIZINE HCL 55713545934 No Longer Active Nettie Newberry APRN Active AMITRIPTYLINE HCL 25 MG ORAL TABS 1 q hs prn AMITRIPTYLINE HCL 32849985849 No Longer Active Nettie Newberry APRN Active DILAUDID 2 MG ORAL TABS Take 1/2 tab po every 4 hours as needed for pain 2014 HYDROMORPHONE HCL 23831074812 No Longer Active Nettie Newberry APRN Active CLOPIDOGREL BISULFATE 75 MG ORAL TABS 1 tab by mouth once daily CLOPIDOGREL BISULFATE 53863257253 Active Jeri Sosa RPT,RMA Active ATORVASTATIN CALCIUM 10 MG ORAL TABS 1 at bedtime ATORVASTATIN CALCIUM 20928651743 Active Jeri Sosa RPT,RMA Active LOVASTATIN 40 MG ORAL TABS Take 1 tab po every hs LOVASTATIN 48615806868 No Longer Active Harinder Hernandez DO Active PREDNISONE 20 MG TAB 2 tabs daily for 4 days, 1 tab daily for 4 days, 1/2 tab daily for 4 days PREDNISONE 21417579261 No Longer Active Harinder Hernandez DO Active LEVAQUIN 500 MG ORAL TABS Take 1 tab po daily x 8 days LEVOFLOXACIN 03564196802 No Longer Active Harinder Hernandez DO Active VENTOLIN HFA 108 (90 BASE) MCG/ACT AERS 2 -4 puffs four times a day PRN 2013 ALBUTEROL SULFATE 16033055194 No Longer Active Jeri Sosa RPT,RMA Active ACEBUTOLOL HCL 200 MG CAPS 1 cap in the morning and 2 caps in the evening ACEBUTOLOL HCL 91681602208 No Longer Active Harinder Hernandez DO Active CEFDINIR 300 MG ORAL CAPS take 1 cap po bid x 10 days CEFDINIR 51320162171 No Longer Active Harinder Hernandez DO Active LOVASTATIN 40 MG TABS 1 pill by mouth nightly for cholesterol LOVASTATIN 57258109035 No Longer Active Nettie Newberry APRN Active NITROSTAT 0.4 MG SUBL 1 tab under tongueas needed for chest pain ( may take 3 total, 5 min apart, then call 911) NITROGLYCERIN 58124517835 No Longer Active Nettie Newberry APRN Active POTASSIUM CHLORIDE CR 10 MEQ CPCR 1 capsule by mouth daily 02/14 POTASSIUM CHLORIDE 25153865481 No Longer Active Nettie Newberry APRN Active TESSALON PERLES 100 MG CAP 1 to 2 tablets by mouth 3 times daily as needed for cough BENZONATATE 38700751300 No Longer Active Nettie Newberry APRN Active THEOPHYLLINE ER 200 MG ORAL [id number] Take 1 tab every 12 hours THEOPHYLLINE 03996796998 Active Jeri Sosa RPT,RMA Active PREDNISONE 20 MG TAB 2 po qd x 5 days PREDNISONE 10286474206 No Longer Active Jae Morgan MD Active AZITHROMYCIN 250 MG TABS 2 po qd x 1 day, then 1 po qd x 4 days AZITHROMYCIN 41711805948 No Longer Active Jae Morgan MD Active PREDNISONE 20 MG TAB 1 tab twice daily for 3 day, then one daily for three days PREDNISONE 75565146312 No Longer Active Jae Morgan MD Active SINGULAIR 10 MG TABS 1 pill by mouth every evening for breathing. MONTELUKAST SODIUM 07513322078 Active Tawnya Pardo MA Active TYLENOL 325 MG TAB 3 by mouth q4h as needed ACETAMINOPHEN 36067070082 Active Harinder Hernandez DO Active POTASSIUM CHLORIDE ER 10 MEQ CR-TABS take 1 tab po daily POTASSIUM CHLORIDE 29545344343 No Longer Active Harinder Hernandez DO Active PREDNISONE 20 MG TAB 1 TID x 2 days, then 1 BID x 3 days, then 1 Daily x 3 days, then stop PREDNISONE 49148243484 No Longer Active Jillina Frazell [employer] Active LEVAQUIN 500 MG TAB 1 tablet by mouth daily LEVOFLOXACIN 72150208709 No Longer Active Jillina Frazell [employer] Active NEURONTIN 300 MG CAP 1 cap by mouth three times daily for restless leg 06/22 GABAPENTIN 61332762273 No Longer Active Harinder Hernandez DO Active BENZONATATE 100 MG CAPS 1 cap po TID PRN BENZONATATE 10443101172 No Longer Active Harinder Hernandez DO Active MONTELUKAST SODIUM 10 MG TABS 1 tab po in the evening MONTELUKAST SODIUM 75784212194 No Longer Active Harinder Hernandez DO Active MUPIROCIN 2 % OINT apply to affected area BID x 14 days MUPIROCIN 65500576640 No Longer Active Harinder Hernandez DO Active TYLENOL EXTRA STRENGTH 500 MG TABS as needed ACETAMINOPHEN 20255133174 No Longer Active Harinder Hernandez DO Active PREDNISONE 10 MG TABS 1 tab po daily PREDNISONE 32379827354 No Longer Active Harinder Hernandez DO Active PREDNISONE 20 MG TAB 2 tabs daily for 4 days, 1 tab daily for 4 days, 1/2 tab daily for 4 days PREDNISONE 46053893507 No Longer Active Harinder Hernandez DO Active AZITHROMYCIN 250 MG TABS 2 po qd x 1 day, then 1 po qd x 4 days AZITHROMYCIN 27965296161 No Longer Active Harinder Hernandez DO Active PREDNISONE 20 MG TAB 3 tabs today, then 1 tab twice daily for 3 day, then one daily for three days PREDNISONE 87093388288 No Longer Active Harinder Hernandez DO Active NIFEDIAC CC 30 MG [id number] 1 tablet daily for raynaud's syndrome NIFEDIPINE 57962626102 No Longer Active Tawnya Pardo MA Active AMBIEN 10 MG TAB 1/2 tab by mouth at bedtime as needed for sleep ZOLPIDEM TARTRATE 98277051572 Active Harinder Hernandez DO Active CLONAZEPAM 1 MG TABS 1 tablet at bedtime for insomnia and restless legs 09/14 CLONAZEPAM 39988651564 Active Jeri Sosa RPT,RMA Active CLONAZEPAM 0.5 MG TABS 1 tab po daily CLONAZEPAM 48326034177 No Longer Active Harinder Hernandez DO Active PREDNISONE 10 MG TAB 1 tablet daily for COPD PREDNISONE 70208192089 Active Tawnya Pardo MA Active PROAIR HFA 108 (90 BASE) MCG/ACT AERS 2 puffs four times a day as needed 2012 ALBUTEROL SULFATE 80856826743 Active Tawnya Pardo MA Active FLOVENT HFA 110 MCG/ACT AERO 2 puffs inhaled b.i.d. FLUTICASONE PROPIONATE HFA 38162332063 Active Tawnya Pardo MA Active EPIPEN 0.3 MG/0.3ML URIEL DIRECTED EPINEPHRINE Active Jeri Sosa RPT,RMA Active ACIPHEX 20 MG TBEC 1 tab po daily RABEPRAZOLE SODIUM 44008838058 Active Tawnya Pardo MA Active CLONAZEPAM 0.5 MG TABS 1 tab po daily CLONAZEPAM 0.5 MG TABS 020837 CLONAZEPAM Inactive PREDNISONE 20 MG TAB 3 tabs today, then 1 tab twice daily for 3 day, then one daily for three days PREDNISONE 20 MG TAB 604713 PREDNISONE Inactive PREDNISONE 20 MG TAB 2 tabs daily for 4 days, 1 tab daily for 4 days, 1/2 tab daily for 4 days PREDNISONE 20 MG TAB 699934 PREDNISONE Inactive PREDNISONE 10 MG TABS 1 tab po daily PREDNISONE 10 MG TABS 899650 PREDNISONE Inactive TYLENOL EXTRA STRENGTH 500 MG TABS as needed TYLENOL EXTRA STRENGTH 500 MG TABS 013388 ACETAMINOPHEN Inactive MUPIROCIN 2 % OINT apply to affected area BID x 14 days MUPIROCIN 2 % OINT 265205 MUPIROCIN Inactive MONTELUKAST SODIUM 10 MG TABS 1 tab po in the evening MONTELUKAST SODIUM 10 MG TABS 20010818 MONTELUKAST SODIUM Inactive BENZONATATE 100 MG CAPS 1 cap po TID PRN BENZONATATE 100 MG CAPS 389298 BENZONATATE Inactive NEURONTIN 300 MG CAP 1 cap by mouth three times daily for restless leg 06/22 NEURONTIN 300 MG CAP 758914 GABAPENTIN Inactive LEVAQUIN 500 MG TAB 1 tablet by mouth daily LEVAQUIN 500 MG TAB 727217 LEVOFLOXACIN Inactive PREDNISONE 20 MG TAB 1 TID x 2 days, then 1 BID x 3 days, then 1 Daily x 3 days, then stop PREDNISONE 20 MG TAB 970510 PREDNISONE Inactive POTASSIUM CHLORIDE ER 10 MEQ CR-TABS take 1 tab po daily POTASSIUM CHLORIDE ER 10 MEQ CR-TABS POTASSIUM CHLORIDE Inactive PREDNISONE 20 MG TAB 1 tab twice daily for 3 day, then one daily for three days PREDNISONE 20 MG TAB 540085 PREDNISONE Inactive TESSALON PERLES 100 MG CAP 1 to 2 tablets by mouth 3 times daily as needed for cough TESSALON PERLES 100 MG CAP 613286 BENZONATATE Inactive POTASSIUM CHLORIDE CR 10 MEQ [...] nightly for cholesterol LOVASTATIN 40 MG TABS 195004 LOVASTATIN Inactive CEFDINIR 300 MG ORAL CAPS take 1 cap po bid x 10 days CEFDINIR 300 MG ORAL CAPS 795080 CEFDINIR Inactive ACEBUTOLOL HCL 200 MG CAPS 1 cap in the morning and 2 caps in the evening ACEBUTOLOL HCL 200 MG CAPS 791792 ACEBUTOLOL HCL Inactive VENTOLIN HFA 108 (90 BASE) MCG/ACT AERS 2 -4 puffs four times a day PRN 2013 VENTOLIN HFA 108 (90 BASE) MCG/ACT AERS ALBUTEROL SULFATE Inactive LEVAQUIN 500 MG ORAL TABS Take 1 tab po daily x 8 days LEVAQUIN 500 MG ORAL TABS 124240 LEVOFLOXACIN Inactive PREDNISONE 20 MG TAB 2 tabs daily for 4 days, 1 tab daily for 4 days, 1/2 tab daily for 4 days PREDNISONE 20 MG TAB 160448 PREDNISONE Inactive LOVASTATIN 40 MG ORAL TABS Take 1 tab po every hs LOVASTATIN 40 MG ORAL TABS 398479 LOVASTATIN Inactive DILAUDID 2 MG ORAL TABS Take 1/2 tab po every 4 hours as needed for pain 2014 DILAUDID 2 MG ORAL TABS 398510 HYDROMORPHONE HCL Inactive AMITRIPTYLINE HCL 25 MG ORAL TABS 1 q hs prn AMITRIPTYLINE HCL 25 MG ORAL TABS 718249 AMITRIPTYLINE HCL Inactive MECLIZINE HCL 25 MG TAB 1 tablet three times daily for 3 days, then 1/2 tab three times daily for 3 days. MECLIZINE HCL 25 MG TAB 569691 MECLIZINE HCL Inactive AMLODIPINE BESYLATE 5 MG ORAL TABS Take 1 tab po daily AMLODIPINE BESYLATE 5 MG ORAL TABS 777945 AMLODIPINE BESYLATE Inactive TOPIRAMATE 25 MG TABS 1 tab po BID TOPIRAMATE 25 MG TABS 739493 TOPIRAMATE Inactive PREDNISONE 20 MG TAB 1 tablet twice daily for 2 days, then 1 tablet once daily for 2 days PREDNISONE 20 MG TAB 836516 PREDNISONE Inactive AZITHROMYCIN 250 MG TABS 2 po qd x 1 day, then 1 po qd x 4 days AZITHROMYCIN 250 MG TABS 1167298 AZITHROMYCIN Inactive AZITHROMYCIN 250 MG TABS 2 po qd x 1 day, then 1 po qd x 4 days AZITHROMYCIN 250 MG TABS 0368862 AZITHROMYCIN Inactive PREDNISONE 20 MG TAB 2 po qd x 5 days PREDNISONE 20 MG TAB 554397 PREDNISONE Inactive Vital Signs Date Name Value [...] Panel - Chemistry sodium, serum 138 mmol/L 989-033 4044/09/24 potassium, serum 3.5 mmol/L 3.5-5.2 chloride, serum [...] Magnesium - Chemistry cholesterol, serum 180 mg/dL 309-916 5202/08/08 triglyceride, serum, fasting 92 mg/dL 30-200 HDL cholesterol, serum 66 mg/dL 32-96 LDL cholesterol, serum 96 mg/dL 0-130 sodium, serum 142 mmol/L 739-002 3059/08/08 carbon dioxide, venous blood 27.4 mmol/L 21.0-32.0 [...] 0.00-1.00 Encounters Code Encounter Date Provider Facility CPT-06803 Level 3 Est. Patient 09:58:58 CDT Harinder Hernandez [facility] CPT-44576 Level 3 Est. Patient 12:37:21 CDT Harinder Hernandez [facility] CPT-66190 Level 3 Est. Patient 18:37:17 CDT Harinder Hernandez [facility] CPT-09657 Level 4 Est. Patient 11:15:54 CDT Nettieog Newberry APRN [facility] CPT-37345 Level 3 Est. Patient 16:42:24 CDT Harinder Hernandez [facility] CPT-96801 Level 3 Est. Patient 15:03:36 CDT Harinder Hernandez [facility] CPT-18150 Level 3 Est. Patient 15:03:20 CDT Harinder Hernandez [facility] CPT-71721 Level 3 Est. Patient 12:14:34 CDT Harinder Shaye Hernandez [facility] CPT-74524 Level 3 Est. Patient 13:47:15 CDT Harinder Hernandez [facility] CPT-43652 Level 3 Est. Patient 14:08:24 CDT Harinder Hernandez [facility] CPT-76043 Level 3 Est. Patient 10:07:15 CDT Harinder Hernandez [facility] CPT-86418 Level 3 Est. Patient 10:06:59 CDT Harinder Hernandez [facility] CPT-20275 Level 3 Est. Patient 15:53:29 CDT Jae Morgan MD [facility] CPT-49328 Level 3 Est. Patient 17:19:04 CDT Harinder Cr David [facility] CPT-43878 Level 3 Est. Patient 11:13:01 CDT Harinder Cr David [facility] CPT-53569 Level 3 Est. Patient 09:03:58 CDT Harinder Cr [facility] CPT-12556 Level 3 Est. Patient 14:46:45 SUBSTANCE ABUSE RN Harinder Hernandez [facility] CPT-59497 Level 3 Est. Patient 09:35:49 SUBSTANCE ABUSE RN Harinder Hernandez [facility] CPT-49305 Level 3 Est. Patient 09:29:37 SUBSTANCE ABUSE RN Harinder Hernandez [facility] CPT-00372 Level 3 Est. Patient 15:51:07 CDT Harinder Hernandez [facility] CPT-22239 Level 3 Est. Patient 18:13:13 CDT Harinder Hernandez [facility] CPT-03452 Level 3 Est. Patient 10:44:19 CDT Harinder Hernandez [facility] CPT-59637 Level 4 Est. Patient 10:07:19 SUBSTANCE ABUSE RN Harinder Hernandez [facility] CPT-41562 Level 3 Est. Patient 15:59:32 SUBSTANCE ABUSE RN Harinder Cr [facility] Procedures Code Procedure Name Date Entry Date Standard Description CPT-78131 Magnesium - LAB USE ONLY 10:45:44 CDT CPT-38494 Lipid - LAB USE ONLY 10:45:44 CDT CPT-54952 CBC - LAB USE ONLY 10:45:44 CDT CPT-95653 Venipuncture Draw Fee 10:45:43 CDT CPT-46568 Venipuncture Draw Fee 18:21:27 CDT CPT-JTINJ Asp/Joint Injection 18:38:04 CDT CPT-79761 Immunization Each Additional Inj 17:38:04 CDT CPT-94801 Immunization Single Admin 17:38:04 CDT CPT-15466 Prevnar 13 17:38:04 CDT CPT-23063 Fluzone Quadrivalent preservative free (>=3yrs.) 17:38: 04 CDT CPT-49798 No Charge Offi Visit 11:14:03 CDT CPT-21615 Chest 2V Frontal and Lat 14:00:18 CDT CPT-OV Office Visit 16:10:28 CDT CPT-JTINJ Asp/Joint Injection 09:03:57 CDT CPT-Cryo Cryotherapy 09:35:49 SUBSTANCE ABUSE RN CPT-JTINJ Asp/Joint Injection 09:34:45 SUBSTANCE ABUSE RN CPT-J2930 Solu Medrol 125 mg (Methyl Prednisolone Sodium Succinate) 20:37:27 CDT CPT-85286 Abx/Therapy Injection 20:37:27 CDT CPT-33655 Port a cath flush 08:15:51 CDT CPT-41967 Port a cath flush 09:54:16 CDT CPT-79421 Port a cath flush 09:38:02 CDT CPT-70365 Port a cath flush 11:00:27 SUBSTANCE ABUSE RN
--- OUTSIDE RECORDS SUMMARY | 2017-12-29 01:37 | XMS REPORT | Clinical Summary ---
Author Author Admin, QIE Organization [facility] Address Unknown Phone Unavailable Allergies, Adverse [...] (RLS) Breast mass, right 611.72 Resolved Harinder Hernnadez DO Lump or mass in breast Health [...] DO Raynaud's syndrome Sacroiliitis, right 720.2 Resolved Harnider Hernandez DO Sacroiliitis, not elsewhere classified Preventive [...] imperative to have this agent ALBUTEROL SULFATE 35546797543 Active Harinder Hernandez DO Active NIFEDIAC CC 30 MG [id number] 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 NIFEDIPINE 47231642233 Active Harinder Hernandez DO Active AMLODIPINE BESYLATE 5 MG TABS 1 tablet by mouth daily AMLODIPINE BESYLATE 78416579908 No Longer Active Harinder Hernandez DO Active TOPAMAX 25 MG ORAL TABS 1 tab po BID TOPIRAMATE 11767684337 Active Kortney Mccain Active FLUTICASONE PROPIONATE 50 MCG/ACT SUSP 2 sprays per nostril daily PRN Allergies FLUTICASONE PROPIONATE 31740920037 Active Kortney Mccain Active NIFEDIPINE ER 30 MG ORAL [id number] 1 daily NIFEDIPINE 47059611538 No Longer Active Harinder Hernandez DO Active POTASSIUM CHLORIDE 20 MEQ ORAL PACK Take 1 tablet by mouth daily POTASSIUM CHLORIDE 99710711827 Active Ciera Pimentel Active FLOVENT HFA 110 MCG/ACT AERO 2 puffs inhaled b.i.d. FLUTICASONE PROPIONATE HFA 11018000077 Active Harinder Hernandez DO Active POTASSIUM CHLORIDE CR 10 MEQ CPCR 1 capsule by mouth daily POTASSIUM CHLORIDE 34447453415 Active Harinder Hernandez DO Active EPIPEN 2-BRUNA 0.3 MG/0.3ML INJ SOAJ 1 INJ NEEDED EPINEPHRINE 75149723140 Active Harinder Hernandez DO Active PREDNISONE 20 MG TAB 1 tab twice daily for 3 day, then one daily for three days PREDNISONE 90278418412 No Longer Active Harinder Hernandez DO Active PREDNISONE 20 MG TAB 1 tablet twice daily for 2 days, then 1 tablet once daily for 2 days PREDNISONE 23416629197 No Longer Active Harinder Hernandez DO Active ASMANEX 120 METERED DOSES 220 MCG/INH INH AEPB 2 puffs orally twice daily MOMETASONE FUROATE 13731212608 Active Jeri Sosa RPT,RMA Active TOPIRAMATE 25 MG TABS 1 tab po BID TOPIRAMATE 79335518253 No Longer Active Nettie eNwberry APRN Active AMLODIPINE BESYLATE 5 MG ORAL TABS Take 1 tab po daily AMLODIPINE BESYLATE 79996665246 No Longer Active Nettie Newberry APRN Active MECLIZINE HCL 25 MG TAB 1 tablet three times daily for 3 days, then 1/2 tab three times daily for 3 days. MECLIZINE HCL 21991893050 No Longer Active Nettie Newberry APRN Active AMITRIPTYLINE HCL 25 MG ORAL TABS 1 q hs prn AMITRIPTYLINE HCL 88298772882 No Longer Active Nettie Newberry APRN Active DILAUDID 2 MG ORAL TABS Take 1/2 tab po every 4 hours as needed for pain 2014 HYDROMORPHONE HCL 10053741676 No Longer Active Nettie Newberry APRN Active CLOPIDOGREL BISULFATE 75 MG ORAL TABS 1 tab by mouth once daily CLOPIDOGREL BISULFATE 33017747045 Active Harinder Hernandez DO Active ATORVASTATIN CALCIUM 10 MG ORAL TABS 1 at bedtime ATORVASTATIN CALCIUM 60096588938 Active Tawnya Pardo MA Active LOVASTATIN 40 MG ORAL TABS Take 1 tab po every hs LOVASTATIN 71717794279 No Longer Active Harinder Hernandez DO Active PREDNISONE 20 MG TAB 2 tabs daily for 4 days, 1 tab daily for 4 days, 1/2 tab daily for 4 days PREDNISONE 97912115442 No Longer Active Harinder Hernandez DO Active LEVAQUIN 500 MG ORAL TABS Take 1 tab po daily x 8 days LEVOFLOXACIN 34983372977 No Longer Active Harinder Hernandez DO Active VENTOLIN HFA 108 (90 BASE) MCG/ACT AERS 2 -4 puffs four times a day PRN 2013 ALBUTEROL SULFATE 97094768433 No Longer Active Jeri Sosa RPT,RMA Active ACEBUTOLOL HCL 200 MG CAPS 1 cap in the morning and 2 caps in the evening ACEBUTOLOL HCL 64243863924 No Longer Active Harinder Hernandez DO Active CEFDINIR 300 MG ORAL CAPS take 1 cap po bid x 10 days CEFDINIR 72072630412 No Longer Active Harinder Hernandez DO Active LOVASTATIN 40 MG TABS 1 pill by mouth nightly for cholesterol LOVASTATIN 92387313784 No Longer Active Nettie Newberry APRN Active NITROSTAT 0.4 MG SUBL 1 tab under tongueas needed for chest pain ( may take 3 total, 5 min apart, then call 911) NITROGLYCERIN 77745170155 No Longer Active Nettie Newberry APRN Active POTASSIUM CHLORIDE CR 10 MEQ CPCR 1 capsule by mouth daily 02/14 POTASSIUM CHLORIDE 90490168934 No Longer Active Nettie Newberry APRN Active TESSALON PERLES 100 MG CAP 1 to 2 tablets by mouth 3 times daily as needed for cough BENZONATATE 27372941713 No Longer Active Nettie Newberry APRN Active THEOPHYLLINE ER 200 MG ORAL [id number] Take 1 tab every 12 hours THEOPHYLLINE 91409972816 Active Tawnya Pardo MA Active PREDNISONE 20 MG TAB 2 po qd x 5 days PREDNISONE 96762679995 No Longer Active Jae Morgan MD Active AZITHROMYCIN 250 MG TABS 2 po qd x 1 day, then 1 po qd x 4 days AZITHROMYCIN 62711420918 No Longer Active Jae Morgan MD Active PREDNISONE 20 MG TAB 1 tab twice daily for 3 day, then one daily for three days PREDNISONE 40160916404 No Longer Active Jae Morgan MD Active SINGULAIR 10 MG TABS 1 pill by mouth every evening for breathing. 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 NEURONTIN 300 MG CAP 1 cap by mouth three times daily for restless leg 06/22 GABAPENTIN 06059322160 No Longer Active Harinder Hernandez DO Active BENZONATATE 100 MG CAPS 1 cap po TID PRN BENZONATATE 78192366122 No Longer Active Harinder Hernandez DO Active MONTELUKAST SODIUM 10 MG TABS 1 tab po in the evening MONTELUKAST SODIUM 02994469653 No Longer Active Harinder Hernandez DO Active MUPIROCIN 2 % OINT apply to affected area BID x 14 days MUPIROCIN 67326134289 No Longer Active Harinder Hernandez DO Active TYLENOL EXTRA STRENGTH 500 MG TABS as needed ACETAMINOPHEN 20200271186 No Longer Active Harinder Hernandez DO Active PREDNISONE 10 MG TABS 1 tab po daily PREDNISONE 43523591948 No Longer Active Harinder Hernandez DO Active PREDNISONE 20 MG TAB 2 tabs daily for 4 days, 1 tab daily for 4 days, 1/2 tab daily for 4 days PREDNISONE 86795151182 No Longer Active Harinder Hernandez DO Active AZITHROMYCIN 250 MG TABS 2 po qd x 1 day, then 1 po qd x 4 days AZITHROMYCIN 61478780370 No Longer Active Harinder Hernandez DO Active PREDNISONE 20 MG TAB 3 tabs today, then 1 tab twice daily for 3 day, then one daily for three days PREDNISONE 26048454294 No Longer Active Harinder Hernandez DO Active NIFEDIAC CC 30 MG [id number] 1 tablet daily for raynaud's syndrome NIFEDIPINE 20633635208 No Longer Active Tawnya Pardo MA Active AMBIEN 10 MG TAB 1/2 tab by mouth at bedtime as needed for sleep ZOLPIDEM TARTRATE 19614916375 Active Kortney Mccain Active CLONAZEPAM 1 MG TABS 1 tablet at bedtime for insomnia and restless legs 09/14 CLONAZEPAM 62464394482 Active Harinder Hernandez DO Active CLONAZEPAM 0.5 MG TABS 1 tab po daily CLONAZEPAM 48834247503 No Longer Active Harinder Hernandez DO Active PREDNISONE 10 MG TAB 1 tablet daily for COPD PREDNISONE 62774256606 Active Ciera Pimentel Active PROAIR HFA 108 (90 BASE) MCG/ACT AERS 2 puffs four times a day as needed 2012 ALBUTEROL SULFATE 71011936766 Active Harinder Hernandez DO Active FLOVENT HFA 110 MCG/ACT AERO 2 puffs inhaled b.i.d. FLUTICASONE PROPIONATE HFA 04017051860 Active Kortney Mccain Active ACIPHEX 20 MG TBEC 1 tab po daily RABEPRAZOLE SODIUM 76531966869 Active Kaylah Newberry Active CLONAZEPAM 0.5 MG TABS 1 tab po daily CLONAZEPAM 0.5 MG TABS 089758 CLONAZEPAM Inactive PREDNISONE 20 MG TAB 3 tabs today, then 1 tab twice daily for 3 day, then one daily for three days PREDNISONE 20 MG TAB 949894 PREDNISONE Inactive PREDNISONE 20 MG TAB 2 tabs daily for 4 days, 1 tab daily for 4 days, 1/2 tab daily for 4 days PREDNISONE 20 MG TAB 831645 PREDNISONE Inactive PREDNISONE 10 MG TABS 1 tab po daily PREDNISONE 10 MG TABS 586773 PREDNISONE Inactive TYLENOL EXTRA STRENGTH 500 MG TABS as needed TYLENOL EXTRA STRENGTH 500 MG TABS 064165 ACETAMINOPHEN Inactive MUPIROCIN 2 % OINT apply to affected area BID x 14 days MUPIROCIN 2 % OINT 751566 MUPIROCIN Inactive MONTELUKAST SODIUM 10 MG TABS 1 tab po in the evening MONTELUKAST SODIUM 10 MG TABS 20010818 MONTELUKAST SODIUM Inactive BENZONATATE 100 MG CAPS 1 cap po TID PRN BENZONATATE 100 MG CAPS 166495 BENZONATATE Inactive NEURONTIN 300 MG CAP 1 cap by mouth three times daily for restless leg 06/22 NEURONTIN 300 MG CAP 842293 GABAPENTIN Inactive LEVAQUIN 500 MG TAB 1 tablet by mouth daily LEVAQUIN 500 MG TAB 869084 LEVOFLOXACIN Inactive PREDNISONE 20 MG TAB 1 TID x 2 days, then 1 BID x 3 days, then 1 Daily x 3 days, then stop PREDNISONE 20 MG TAB 322341 PREDNISONE Inactive POTASSIUM CHLORIDE ER 10 MEQ CR-TABS take 1 tab po daily POTASSIUM CHLORIDE ER 10 MEQ CR-TABS POTASSIUM CHLORIDE Inactive PREDNISONE 20 MG TAB 1 tab twice daily for 3 day, then one daily for three days PREDNISONE 20 MG TAB 015081 PREDNISONE Inactive TESSALON PERLES 100 MG CAP 1 to 2 tablets by mouth 3 times daily as needed for cough TESSALON PERLES 100 MG CAP 489793 BENZONATATE Inactive POTASSIUM CHLORIDE CR 10 MEQ CPCR 1 capsule by mouth daily 02/14 POTASSIUM CHLORIDE CR 10 MEQ CPCR POTASSIUM CHLORIDE Inactive NITROSTAT 0.4 MG SUBL 1 tab under tongueas needed for chest pain ( may take 3 total, 5 min apart, then call 911) NITROSTAT 0.4 MG SUBL 944433 NITROGLYCERIN Inactive LOVASTATIN 40 MG TABS 1 pill by mouth nightly for cholesterol LOVASTATIN 40 MG TABS 294735 LOVASTATIN Inactive CEFDINIR 300 MG ORAL CAPS take 1 cap po bid x 10 days CEFDINIR 300 MG ORAL CAPS 295435 CEFDINIR Inactive ACEBUTOLOL HCL 200 MG CAPS 1 cap in the morning and 2 caps in the evening ACEBUTOLOL HCL 200 MG CAPS 414919 ACEBUTOLOL HCL Inactive VENTOLIN HFA 108 (90 BASE) MCG/ACT AERS 2 -4 puffs four times a day PRN 2013 VENTOLIN HFA 108 (90 BASE) MCG/ACT AERS ALBUTEROL SULFATE Inactive LEVAQUIN 500 MG ORAL TABS Take 1 tab po daily x 8 days LEVAQUIN 500 MG ORAL TABS 098448 LEVOFLOXACIN Inactive PREDNISONE 20 MG TAB 2 tabs daily for 4 days, 1 tab daily for 4 days, 1/2 tab daily for 4 days PREDNISONE 20 MG TAB 364197 PREDNISONE Inactive LOVASTATIN 40 MG ORAL TABS Take 1 tab po every hs LOVASTATIN 40 MG ORAL TABS 715926 LOVASTATIN Inactive DILAUDID 2 MG ORAL TABS Take 1/2 tab po every 4 hours as needed for pain 2014 DILAUDID 2 MG ORAL TABS 250956 HYDROMORPHONE HCL Inactive AMITRIPTYLINE HCL 25 MG ORAL TABS 1 q hs prn AMITRIPTYLINE HCL 25 MG ORAL TABS 062181 AMITRIPTYLINE HCL Inactive MECLIZINE HCL 25 MG TAB 1 tablet three times daily for 3 days, then 1/2 tab three times daily for 3 days. MECLIZINE HCL 25 MG TAB 595966 MECLIZINE HCL Inactive AMLODIPINE BESYLATE 5 MG ORAL TABS Take 1 tab po daily AMLODIPINE BESYLATE 5 MG ORAL TABS 297313 AMLODIPINE BESYLATE Inactive TOPIRAMATE 25 MG TABS 1 tab po BID TOPIRAMATE 25 MG TABS 279935 TOPIRAMATE Inactive PREDNISONE 20 MG TAB 1 tablet twice daily for 2 days, then 1 tablet once daily for 2 days PREDNISONE 20 MG TAB 925251 PREDNISONE Inactive PREDNISONE 20 MG TAB 1 tab twice daily for 3 day, then one daily for three days PREDNISONE 20 MG TAB 985702 PREDNISONE Inactive NIFEDIPINE ER 30 MG ORAL [id number] 1 daily NIFEDIPINE ER 30 MG ORAL [id number] NIFEDIPINE Inactive AMLODIPINE BESYLATE 5 MG TABS 1 tablet by mouth daily AMLODIPINE BESYLATE 5 MG TABS 558710 AMLODIPINE BESYLATE Inactive AZITHROMYCIN 250 MG TABS 2 po qd x 1 day, then 1 po qd x 4 days AZITHROMYCIN 250 MG TABS 2970732 AZITHROMYCIN Inactive AZITHROMYCIN 250 MG TABS 2 po qd x 1 day, then 1 po qd x 4 days AZITHROMYCIN 250 MG TABS 2224720 AZITHROMYCIN Inactive PREDNISONE 20 MG TAB 2 po qd x 5 days PREDNISONE 20 MG TAB 893769 PREDNISONE Inactive Vital Signs Date Name Value [...] Panel - Chemistry sodium, serum 137 mmol/L 079-884 4760/01/03 potassium, serum 3.4 mmol/L 3.5-5.2 chloride, serum [...] Magnesium - Chemistry cholesterol, serum 180 mg/dL 607-963 4067/08/08 triglyceride, serum, fasting 92 mg/dL 30-200 HDL cholesterol, serum 66 mg/dL 32-96 LDL cholesterol, serum 96 mg/dL 0-130 sodium, serum 142 mmol/L 767-927 2375/08/08 carbon dioxide, venous blood 27.4 mmol/L 21.0-32.0 [...] 10.0-20.0 Encounters Code Encounter Date Provider Facility CPT-25110 Level 4 Est. Patient 10:19:23 CDT Harinder Cr [facility] CPT-56768 Level 3 Est. Patient 09:58:58 CDT Harinder Cr [facility] CPT-99491 Level 3 Est. Patient 12:37:21 CDT Harinder Cr [facility] CPT-15336 Level 3 Est. Patient 18:37:17 CDT Harinder Cr [facility] CPT-89505 Level 4 Est. Patient 11:15:54 CDT Nettie Newberry [facility] CPT-28396 Level 3 Est. Patient 16:42:24 CDT Harinder Cr [facility] CPT-11809 Level 3 Est. Patient 15:03:36 CDT Harinder Cr [facility] CPT-65049 Level 3 Est. Patient 15:03:20 CDT Harinder Cr [facility] CPT-36431 Level 3 Est. Patient 12:14:34 CDT Harinder Hernandez [facility] CPT-94519 Level 3 Est. Patient 13:47:15 CDT Harinder Hernandez [facility] CPT-22883 Level 3 Est. Patient 14:08:24 CDT Harinder Hernandez [facility] CPT-28093 Level 3 Est. Patient 10:07:15 CDT Harinder Hernandez [facility] CPT-88792 Level 3 Est. Patient 10:06:59 CDT Harinder Hernandez [facility] CPT-91854 Level 3 Est. Patient 15:53:29 CDT Jae Morgan MD [facility] CPT-96521 Level 3 Est. Patient 17:19:04 CDT Harinder Hernandez [facility] CPT-61962 Level 3 Est. Patient 11:13:01 CDT Harinder Hernandez [facility] CPT-59522 Level 3 Est. Patient 09:03:58 CDT Harinder Hernandez [facility] CPT-54054 Level 3 Est. Patient 14:46:45 CAR DRYER Harinder Hernandez [facility] CPT-32180 Level 3 Est. Patient 09:35:49 CAR DRYER Harinder Hernandez [facility] CPT-35992 Level 3 Est. Patient 09:29:37 CAR DRYER Harinder Hernandez [facility] CPT-55361 Level 3 Est. Patient 15:51:07 CDT Harinder Hernandez [facility] CPT-30149 Level 3 Est. Patient 18:13:13 CDT Harinder Shaye Hernandez [facility] CPT-64591 Level 3 Est. Patient 10:44:19 CDT Harinder Cr David [facility] CPT-11512 Level 4 Est. Patient 10:07:19 CAR DRYER Harinder Hernandez [facility] CPT-05557 Level 3 Est. Patient 15:59:32 CAR DRYER Harinder Cr [facility] Procedures Code Procedure Name Date Entry Date Standard Description CPT-46891 Hip, complete, 2-3 views - XRAY USE ONLY 10:28:40 CDT CPT-34123 BMP - LAB USE ONLY 16:45:09 CAR DRYER CPT-38528 Port a cath flush 12:00:13 CAR DRYER CPT-TCMM Transitional Care Mgmt-Moderate 11:20:16 CAR DRYER CPT-08287 First Vx - Ix admin for Medicare patients 17:35:15 CDT CPT-86995 Fluzone Preservative Free Intramuscular Suspension 17:35 :15 CDT CPT-62665 Microalbumin - LAB USE ONLY 11:52:05 CDT CPT-TCMM Transitional Care Mgmt-Moderate 11:33:57 CDT CPT-25235 No Charge Offi Visit 14:11:29 CDT CPT-73187 Magnesium - LAB USE ONLY 10:45:44 CDT CPT-46174 Lipid - LAB USE ONLY 10:45:44 CDT CPT-78656 CBC - LAB USE ONLY 10:45:44 CDT CPT-87827 Venipuncture Draw Fee 10:45:43 CDT CPT-63538 Venipuncture Draw Fee 18:21:27 CDT CPT-JTINJ Asp/Joint Injection 18:38:04 CDT CPT-97603 Immunization Each Additional Inj 17:38:04 CDT CPT-16960 Immunization Single Admin 17:38:04 CDT CPT-44369 Prevnar 13 17:38:04 CDT CPT-02798 Fluzone Quadrivalent preservative free (>=3yrs.) 17:38: 04 CDT CPT-75970 No Charge Offi Visit 11:14:03 CDT CPT-27565 Chest 2V Frontal and Lat 14:00:18 CDT CPT-OV Office Visit 16:10:28 CDT CPT-JTINJ Asp/Joint Injection 09:03:57 CDT CPT-Cryo Cryotherapy 09:35:49 CAR DRYER CPT-JTINJ Asp/Joint Injection 09:34:45 CAR DRYER CPT-J2930 Solu Medrol 125 mg (Methyl Prednisolone Sodium Succinate) 20:37:27 CDT CPT-62584 Abx/Therapy Injection 20:37:27 CDT CPT-12816 Port a cath flush 08:15:51 CDT CPT-70913 Port a cath flush 09:54:16 CDT CPT-56442 Port a cath flush 09:38:02 CDT CPT-42114 Port a cath flush 11:00:27 CAR DRYER
--- OUTSIDE RECORDS SUMMARY | 2017-12-29 01:38 | XMS REPORT | Clinical Summary ---
Author Author Admin, QIE Organization [facility] Address Unknown Phone Unavailable Allergies, [...] RELEASE 12 HOUR 1 po BID THEOPHYLLINE [id number] Active Kortney Mccain Active POTASSIUM CHLORIDE ER 20 MEQ ORAL TABLET EXTENDED RELEASE 1 po q day POTASSIUM CHLORIDE 84104867992 Active Kortney Mccain Active POTASSIUM CHLORIDE 20 MEQ ORAL PACKET 1 tab po q day POTASSIUM CHLORIDE 36764114850 No Longer Active Kortney Mccain Active POTASSIUM CHLORIDE ER 10 MEQ ORAL CAPSULE EXTENDED RELEASE 1 capsule BID 2016 POTASSIUM CHLORIDE 72623743552 No Longer Active Kortney Mccain Active LASIX 20 MG ORAL TABLET 1 tablet by mouth every morning FUROSEMIDE 69045469258 No Longer Active Kortney Mccain Active SPIRONOLACTONE 25 MG ORAL TABLET 1 tablet by mouth daily SPIRONOLACTONE 35791734205 Active Kortney Mccain Active FLUOXETINE HCL 10 MG ORAL CAPSULE 1 po qd for depression/anxiety FLUOXETINE HCL 77622543947 Active Harinder Hernandez DO Active VOLTAREN 1 % TRANSDERMAL GEL apply q 6-8 hour to left arm as needed for pain DICLOFENAC SODIUM 03096091897 Active Kortney Mccain Active ALBUTEROL SULFATE (2.5 MG/3ML) 0.083% INHALATION NEBULIZATION SOLUTION 1 vial neb q 4hrs for severe asthma. 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 NIFEDIPINE 49707577293 Active Kortney Mccain Active AMLODIPINE BESYLATE 5 MG ORAL TABLET 1 tablet by mouth daily 2016 AMLODIPINE BESYLATE 65310625846 No Longer Active Harinder Hernandez DO Active TOPAMAX 25 MG ORAL TABLET 1 tab po BID TOPIRAMATE 98262644799 Active Kortney Mccain Active FLUTICASONE PROPIONATE 50 MCG/ACT NASAL SUSPENSION 2 sprays per nostril daily PRN Allergies FLUTICASONE PROPIONATE 19951066422 Active Kortney Mccain Active NIFEDIPINE ER 30 MG ORAL TABLET EXTENDED RELEASE 24 HOUR 1 daily NIFEDIPINE 97088004599 No Longer Active Harinder Hernandez DO Active FLOVENT HFA 110 MCG/ACT INHALATION AEROSOL 2 puffs inhaled b.i.d. FLUTICASONE PROPIONATE HFA 77430980858 Active Harinder Hernandez DO Active EPIPEN 2-BRUNA 0.3 MG/0.3ML INJECTION SOLUTION AUTO-INJECTOR 1 INJ NEEDED EPINEPHRINE 24130030806 Active Kortney Mccain Active PREDNISONE 20 MG ORAL TABLET 1 tab twice daily for 3 day, then one daily for three days PREDNISONE 57877362500 No Longer Active Harinder Hernandez DO Active PREDNISONE 20 MG ORAL TABLET 1 tablet twice daily for 2 days, then 1 tablet once daily for 2 days PREDNISONE 68301795728 No Longer Active Harinder Hernandez DO Active ASMANEX 120 METERED DOSES 220 MCG/INH INHALATION AEROSOL POWDER BREATH ACTIVATED 2 puffs orally twice daily MOMETASONE FUROATE 67948703403 Active Jeri Sosa LPN Active TOPIRAMATE 25 MG ORAL TABLET 1 tab po BID TOPIRAMATE 55469539463 No Longer Active Nettie Newberry MAHENDRA Active AMLODIPINE BESYLATE 5 MG ORAL TABLET Take 1 tab po daily AMLODIPINE BESYLATE 70085902497 No Longer Active Nettie Newberry MAHENDRA Active MECLIZINE HCL 25 MG ORAL TABLET 1 tablet three times daily for 3 days, then 1/ 2 tab three times daily for 3 days. MECLIZINE HCL 04212255721 No Longer Active Nettie Newberry MAHENDRA Active AMITRIPTYLINE HCL 25 MG ORAL TABLET 1 q hs prn AMITRIPTYLINE HCL 64303542514 No Longer Active Nettie Newberry MAHENDRA Active DILAUDID 2 MG ORAL TABLET Take 1/2 tab po every 4 hours as needed for pain HYDROMORPHONE HCL 41985322850 No Longer Active Nettie Rohith MAHENDRA Active CLOPIDOGREL BISULFATE 75 MG ORAL TABLET 1 tab by mouth once daily CLOPIDOGREL BISULFATE 89168478744 Active Harinder Hernandez DO Active ATORVASTATIN CALCIUM 10 MG ORAL TABLET 1 at bedtime ATORVASTATIN CALCIUM 09790199965 Active Kortney Mccain Active LOVASTATIN 40 MG ORAL TABLET Take 1 tab po every hs LOVASTATIN 50888023964 No Longer Active Harinder Hernandez DO Active PREDNISONE 20 MG ORAL TABLET 2 tabs daily for 4 days, 1 tab daily for 4 days, 1/2 tab daily for 4 days PREDNISONE 87122305252 No Longer Active Harinder Hernandez DO Active LEVAQUIN 500 MG ORAL TABLET Take 1 tab po daily x 8 days LEVOFLOXACIN 88712437423 No Longer Active Harinder Hernandez DO Active VENTOLIN HFA 108 (90 Base) MCG/ACT INHALATION AEROSOL SOLUTION 2 -4 puffs four times a day PRN ALBUTEROL SULFATE 27615421026 No Longer Active Jeri Sosa LPN Active ACEBUTOLOL HCL 200 MG ORAL CAPSULE 1 cap in the morning and 2 caps in the evening ACEBUTOLOL HCL 17469044985 No Longer Active Harinder Hernandez DO Active CEFDINIR 300 MG ORAL CAPSULE take 1 cap po bid x 10 days CEFDINIR 51475048106 No Longer Active Harinder Hernandez DO Active LOVASTATIN 40 MG ORAL TABLET 1 pill by mouth nightly for cholesterol LOVASTATIN 23438594448 No Longer Active Nettie Newberry APRN Active NITROSTAT 0.4 MG SUBLINGUAL TABLET SUBLINGUAL 1 tab under tongueas needed for chest pain ( may take 3 total, 5 min apart, then call 911) NITROGLYCERIN 25744746860 No Longer Active Nettie Newberry APRN Active POTASSIUM CHLORIDE ER 10 MEQ ORAL CAPSULE EXTENDED RELEASE 1 capsule by mouth daily POTASSIUM CHLORIDE 43794834928 No Longer Active Nettie Newberry APRN Active TESSALON PERLES 100 MG ORAL CAPSULE 1 to 2 tablets by mouth 3 times daily as needed for cough BENZONATATE 13217323311 No Longer Active Nettie Newberry APRN Active PREDNISONE 20 MG ORAL TABLET 2 po qd x 5 days PREDNISONE 64371873655 No Longer Active Jae Morgan MD Active AZITHROMYCIN 250 MG ORAL TABLET 2 po qd x 1 day, then 1 po qd x 4 days 12/30 AZITHROMYCIN 74618788937 No Longer Active Jae Morgan MD Active PREDNISONE 20 MG ORAL TABLET 1 tab twice daily for 3 day, then one daily for three days PREDNISONE 16360392060 No Longer Active Jae Morgan MD Active SINGULAIR 10 MG ORAL TABLET 1 pill by mouth every evening for breathing. 2014 MONTELUKAST SODIUM 85150736771 Active Kortney Mccain Active TYLENOL 325 MG ORAL TABLET 3 by mouth q4h as needed ACETAMINOPHEN 53301856678 Active Harinder Hernandez DO Active POTASSIUM CHLORIDE ER 10 MEQ ORAL TABLET EXTENDED RELEASE take 1 tab po daily POTASSIUM CHLORIDE 21293842109 No Longer Active Harinder Hernandez DO Active PREDNISONE 20 MG ORAL TABLET 1 TID x 2 days, then 1 BID x 3 days, then 1 Daily x 3 days, then stop PREDNISONE 94483841119 No Longer Active Jialec Montemayor APRN Active LEVAQUIN 500 MG ORAL TABLET 1 tablet by mouth daily LEVOFLOXACIN 14063995188 No Longer Active Jillina Frazell MAINFRAME ANALYST Active NEURONTIN 300 MG ORAL CAPSULE 1 cap by mouth three times daily for restless leg GABAPENTIN 03314827422 No Longer Active Harinder Hernandez DO Active BENZONATATE 100 MG ORAL CAPSULE 1 cap po TID PRN BENZONATATE 47372357191 No Longer Active Harinder Hernandez DO Active MONTELUKAST SODIUM 10 MG ORAL TABLET 1 tab po in the evening 2014 MONTELUKAST SODIUM 24976459710 No Longer Active Harinder Hernandez DO Active MUPIROCIN 2 % EXTERNAL OINTMENT apply to affected area BID x 14 days MUPIROCIN 32133764663 No Longer Active Harinder Hernandez DO Active TYLENOL EXTRA STRENGTH 500 MG ORAL TABLET as needed ACETAMINOPHEN 15817463120 No Longer Active Harinder Hernandez DO Active PREDNISONE 10 MG ORAL TABLET 1 tab po daily PREDNISONE 67278709651 No Longer Active Harinder Hernandez DO Active PREDNISONE 20 MG ORAL TABLET 2 tabs daily for 4 days, 1 tab daily for 4 days, 1/2 tab daily for 4 days PREDNISONE 79163337699 No Longer Active Harinder Hernandez DO Active AZITHROMYCIN 250 MG ORAL TABLET 2 po qd x 1 day, then 1 po qd x 4 days 04/06 AZITHROMYCIN 65134550400 No Longer Active Harinder Hernandez DO Active PREDNISONE 20 MG ORAL TABLET 3 tabs today, then 1 tab twice daily for 3 day, then one daily for three days PREDNISONE 47329597453 No Longer Active Harinder Hernandez DO Active NIFEDIAC CC 30 MG ORAL TABLET EXTENDED RELEASE 24 HOUR 1 tablet daily for raynaud's syndrome NIFEDIPINE 39460750875 No Longer Active Tawnya Pardo MA Active AMBIEN 10 MG ORAL TABLET 1/2 tab by mouth at bedtime as needed for sleep 2013 ZOLPIDEM TARTRATE 87491821872 Active Kortney Mccain Active CLONAZEPAM 1 MG ORAL TABLET 1 tablet at bedtime for insomnia and restless legs CLONAZEPAM 22006128118 Active Harinder Hernandez DO Active CLONAZEPAM 0.5 MG ORAL TABLET 1 tab po daily CLONAZEPAM 91041850002 No Longer Active Harinder Hernandez DO Active PREDNISONE 10 MG ORAL TABLET 1 tablet daily for COPD PREDNISONE 84352016831 Active Kortney Mccain Active PROAIR HFA 108 (90 Base) MCG/ACT INHALATION AEROSOL SOLUTION 2 puffs four times a day as needed ALBUTEROL SULFATE 66052592939 Active Harinder Hernandez DO Active FLOVENT HFA 110 MCG/ACT INHALATION AEROSOL 2 puffs inhaled b.i.d. FLUTICASONE PROPIONATE HFA 77887869985 Active Kortney Mccain Active ACIPHEX 20 MG ORAL TABLET DELAYED RELEASE 1 tab po daily RABEPRAZOLE SODIUM 10481853186 Active Kaylah Newberry Active AMITRIPTYLINE HCL 25 MG ORAL TABLET 1 q hs prn AMITRIPTYLINE HCL 25 MG ORAL TABLET 171647 AMITRIPTYLINE HCL Inactive BENZONATATE 100 MG ORAL CAPSULE 1 cap po TID PRN BENZONATATE 100 MG ORAL CAPSULE 559658 BENZONATATE Inactive DILAUDID 2 MG ORAL TABLET Take 1/2 tab po every 4 hours as needed for pain DILAUDID 2 MG ORAL TABLET 288524 HYDROMORPHONE HCL Inactive LASIX 20 MG ORAL TABLET 1 tablet by mouth every morning LASIX 20 MG ORAL TABLET 017929 FUROSEMIDE Inactive NITROSTAT 0.4 MG SUBLINGUAL TABLET SUBLINGUAL 1 tab under tongueas needed for chest pain ( may take 3 total, 5 min apart, then call 911) NITROSTAT 0.4 MG SUBLINGUAL TABLET SUBLINGUAL 179928 NITROGLYCERIN Inactive POTASSIUM CHLORIDE 20 MEQ ORAL PACKET 1 tab po q day POTASSIUM CHLORIDE 20 MEQ ORAL PACKET 9762872 POTASSIUM CHLORIDE Inactive PREDNISONE 10 MG ORAL TABLET 1 tab po daily PREDNISONE 10 MG ORAL TABLET 294662 PREDNISONE Inactive PREDNISONE 20 MG ORAL TABLET 3 tabs today, then 1 tab twice daily for 3 day, then one daily for three days PREDNISONE 20 MG ORAL TABLET 095500 PREDNISONE Inactive PREDNISONE 20 MG ORAL TABLET 2 tabs daily for 4 days, 1 tab daily for 4 days, 1/2 tab daily for 4 days PREDNISONE 20 MG ORAL TABLET 794678 PREDNISONE Inactive PREDNISONE 20 MG ORAL TABLET 1 TID x 2 days, then 1 BID x 3 days, then 1 Daily x 3 days, then stop PREDNISONE 20 MG ORAL TABLET 374061 PREDNISONE Inactive PREDNISONE 20 MG ORAL TABLET 1 tab twice daily for 3 day, then one daily for three days PREDNISONE 20 MG ORAL TABLET 107745 PREDNISONE Inactive PREDNISONE 20 MG ORAL TABLET 1 tablet twice daily for 2 days, then 1 tablet once daily for 2 days PREDNISONE 20 MG ORAL TABLET 123379 PREDNISONE Inactive PREDNISONE 20 MG ORAL TABLET 1 tab twice daily for 3 day, then one daily for three days PREDNISONE 20 MG ORAL TABLET 367590 PREDNISONE Inactive PREDNISONE 20 MG ORAL TABLET 2 tabs daily for 4 days, 1 tab daily for 4 days, 1/2 tab daily for 4 days PREDNISONE 20 MG ORAL TABLET 521409 PREDNISONE Inactive PREDNISONE 20 MG ORAL TABLET 2 po qd x 5 days PREDNISONE 20 MG ORAL TABLET 182959 PREDNISONE Inactive TYLENOL EXTRA STRENGTH 500 MG ORAL TABLET as needed TYLENOL EXTRA STRENGTH 500 MG ORAL TABLET 923179 ACETAMINOPHEN Inactive ACEBUTOLOL HCL 200 MG ORAL CAPSULE 1 cap in the morning and 2 caps in the evening ACEBUTOLOL HCL 200 MG ORAL CAPSULE 432738 ACEBUTOLOL HCL Inactive AMLODIPINE BESYLATE 5 MG ORAL TABLET Take 1 tab po daily AMLODIPINE BESYLATE 5 MG ORAL TABLET 223312 AMLODIPINE BESYLATE Inactive AMLODIPINE BESYLATE 5 MG ORAL TABLET 1 tablet by mouth daily 2016 AMLODIPINE BESYLATE 5 MG ORAL TABLET 071963 AMLODIPINE BESYLATE Inactive CLONAZEPAM 0.5 MG ORAL TABLET 1 tab po daily CLONAZEPAM 0.5 MG ORAL TABLET 550644 CLONAZEPAM Inactive LOVASTATIN 40 MG ORAL TABLET Take 1 tab po every hs LOVASTATIN 40 MG ORAL TABLET 499974 LOVASTATIN Inactive LOVASTATIN 40 MG ORAL TABLET 1 pill by mouth nightly for cholesterol LOVASTATIN 40 MG ORAL TABLET 313309 LOVASTATIN Inactive MUPIROCIN 2 % EXTERNAL OINTMENT apply to affected area BID x 14 days MUPIROCIN 2 % EXTERNAL OINTMENT 766004 MUPIROCIN Inactive TESSALON PERLES 100 MG ORAL CAPSULE 1 to 2 tablets by mouth 3 times daily as needed for cough TESSALON PERLES 100 MG ORAL CAPSULE 591275 BENZONATATE Inactive MECLIZINE HCL 25 MG ORAL TABLET 1 tablet three times daily for 3 days, then 1/ 2 tab three times daily for 3 days. MECLIZINE HCL 25 MG ORAL TABLET 100598 MECLIZINE HCL Inactive NEURONTIN 300 MG ORAL CAPSULE 1 cap by mouth three times daily for restless leg NEURONTIN 300 MG ORAL CAPSULE 918879 GABAPENTIN Inactive POTASSIUM CHLORIDE ER 10 MEQ ORAL TABLET EXTENDED RELEASE take 1 tab po daily POTASSIUM CHLORIDE ER 10 MEQ ORAL TABLET EXTENDED RELEASE POTASSIUM CHLORIDE Inactive POTASSIUM CHLORIDE ER 10 MEQ ORAL CAPSULE EXTENDED RELEASE 1 capsule by mouth daily POTASSIUM CHLORIDE ER 10 MEQ ORAL CAPSULE EXTENDED RELEASE POTASSIUM CHLORIDE Inactive POTASSIUM CHLORIDE ER 10 MEQ ORAL CAPSULE EXTENDED RELEASE 1 capsule BID 2016 POTASSIUM CHLORIDE ER 10 MEQ ORAL CAPSULE EXTENDED RELEASE POTASSIUM CHLORIDE Inactive LEVAQUIN 500 MG ORAL TABLET Take 1 tab po daily x 8 days LEVAQUIN 500 MG ORAL TABLET 111157 LEVOFLOXACIN Inactive LEVAQUIN 500 MG ORAL TABLET 1 tablet by mouth daily LEVAQUIN 500 MG ORAL TABLET 19980216 LEVOFLOXACIN Inactive TOPIRAMATE 25 MG ORAL TABLET 1 tab po BID TOPIRAMATE 25 MG ORAL TABLET 489142 TOPIRAMATE Inactive AZITHROMYCIN 250 MG ORAL TABLET 2 po qd x 1 day, then 1 po qd x 4 days 04/06 AZITHROMYCIN 250 MG ORAL TABLET 084787 AZITHROMYCIN Inactive AZITHROMYCIN 250 MG ORAL TABLET 2 po qd x 1 day, then 1 po qd x 4 days 12/30 AZITHROMYCIN 250 MG ORAL TABLET 760624 AZITHROMYCIN Inactive CEFDINIR 300 MG ORAL CAPSULE take 1 cap po bid x 10 days CEFDINIR 300 MG ORAL CAPSULE 499414 CEFDINIR Inactive MONTELUKAST SODIUM 10 MG ORAL TABLET 1 tab po in the evening 2014 MONTELUKAST SODIUM 10 MG ORAL TABLET 20010818 MONTELUKAST SODIUM Inactive VENTOLIN HFA 108 (90 Base) MCG/ACT INHALATION AEROSOL SOLUTION 2 -4 puffs four times a day PRN VENTOLIN HFA 108 (90 Base) MCG/ ACT INHALATION AEROSOL SOLUTION ALBUTEROL SULFATE Inactive NIFEDIPINE ER 30 MG ORAL TABLET EXTENDED RELEASE 24 HOUR 1 daily NIFEDIPINE ER 30 MG ORAL TABLET EXTENDED RELEASE 24 HOUR NIFEDIPINE Inactive Vital Signs Date Name Value Unit [...] Panel - Chemistry sodium, serum 137 mmol/L 194-860 6048/01/03 potassium, serum 3.4 mmol/L 3.5-5.2 chloride, serum 102 mmol/L 98-107 carbon dioxide, venous blood 29.2 mmol/L 21.0-32.0 blood glucose 87 mg/dL 65-110 calcium, serum 8.5 mg/dL 8.5-10.1 urea nitrogen, blood 8 mg/dL 7-18 creatinine, serum 0.82 mg/dL 0.55-1.30 sodium, serum 140 mmol/L 992-513 2015/07/13 potassium, serum 3.2 mmol/L 3.5-5.2 chloride, serum 103 mmol/L 98-107 carbon dioxide, venous blood 26.9 mmol/L 21.0-32.0 blood glucose 93 mg/dL 65-110 calcium, serum 9.2 mg/dL 8.5-10.1 urea nitrogen, blood 13 mg/dL 7-18 creatinine, serum 0.84 mg/dL 0.60-1.30 sodium, serum 140 mmol/L 213-942 1461/08/21 potassium, serum 3.8 mmol/L 3.5-5.2 chloride, serum [...] ... - Chemistry sodium, serum 141 mmol/L 755-625 3357/08/07 carbon dioxide, venous blood 34.0 mmol/L 21.0-32.0 [...] 1.40 mg/dL 0.00-1.00 cholesterol, serum 192 mg/dL 009-525 8743/10/19 triglyceride, serum, fasting 71 mg/dL 30-200 HDL cholesterol, serum 72 mg/dL 32-60 LDL cholesterol, serum 106 mg/dL 0-130 Lab Report: THEOPHYLLINE - Toxicology theophylline level, serum 3.1 ug/mL 10.0-20.0 Encounters Code Encounter Date Provider Facility CPT-19027 Level 4 Est. Patient 14:45:25 CDT Harinder Cr [facility] CPT-01942 Level 4 Est. Patient 09:15:13 CDT Harinder [facility] CPT-63581 Level 3 Est. Patient 11:51:58 CDT Harinder [facility] CPT-28073 Level 3 Est. Patient 11:30:05 CDT Harinder Hernandez [facility] CPT-98756 Level 4 Est. Patient 10:19:23 CDT Harinder Hernandez [facility] CPT-66193 Level 3 Est. Patient 09:58:58 CDT Harinder Cr [facility] CPT-38115 Level 3 Est. Patient 12:37:21 CDT Harinder Hernandez [facility] CPT-49027 Level 3 Est. Patient 18:37:17 CDT Harinder Cr [facility] CPT-61728 Level 4 Est. Patient 11:15:54 CDT Nettie King [facility]DR[facility] CPT-46686 Level 3 Est. Patient 16:42:24 CDT Harinder Cr [facility] CPT-77473 Level 3 Est. Patient 15:03:36 CDT Harinder Hernandez [facility] CPT-26675 Level 3 Est. Patient 15:03:20 CDT Harinder Cr [facility] CPT-86317 Level 3 Est. Patient 12:14:34 CDT Harinder Hernandez [facility] CPT-28139 Level 3 Est. Patient 13:47:15 CDT Harinder Cr [facility] CPT-94944 Level 3 Est. Patient 14:08:24 CDT Harinder Hernandez [facility] CPT-72311 Level 3 Est. Patient 10:07:15 CDT Harinder Cr [facility] CPT-14859 Level 3 Est. Patient 10:06:59 CDT Harinder Hernandez [facility] CPT-22066 Level 3 Est. Patient 15:53:29 CDT Jae Morgan [facility] CPT-53504 Level 3 Est. Patient 17:19:04 CDT Harinder W David [facility] CPT-34923 Level 3 Est. Patient 11:13:01 CDT Harinder Hernandez [facility] CPT-88812 Level 3 Est. Patient 09:03:58 CDT Harinder Hernandez [facility] CPT-46369 Level 3 Est. Patient 14:46:45 [employer]ACH[employer] Harinder Hernandez [facility] CPT-49946 Level 3 Est. Patient 09:35:49 [employer]INE Harinder Hernandez [facility] CPT-22535 Level 3 Est. Patient 09:29:37 [employer]ACHINE Harinder Hernandez [facility] CPT-82318 Level 3 Est. Patient 15:51:07 CDT Harinder Hernandez [facility] CPT-47013 Level 3 Est. Patient 18:13:13 CDT Harinder Hernandez [facility] CPT-87690 Level 3 Est. Patient 10:44:19 CDT Harinder Hernandez [facility] CPT-35987 Level 4 Est. Patient 10:07:19 [employer]ACHINE Harinder Hernandez [facility] CPT-58048 Level 3 Est. Patient 15:59:32 [employer] Harinder Hernandez [facility] Procedures Code Procedure Name Date Entry Date Standard Description CPT-35751 Abd compl w upright - XRAY USE ONLY 14:48:09 CDT 02/18 CPT-24224 Port a cath flush 13:46:05 CDT CPT-55260 Hip, complete, 2-3 views - XRAY USE ONLY 10:28:40 CDT CPT-11183 BMP - LAB USE ONLY 16:45:09 [employer] CPT-14477 Port a cath flush 12:00:13 [employer] CPT-TCMM Transitional Care Mgmt-Moderate 11:20:16 [employer] CPT-54361 First Vx - Ix admin for Medicare patients 17:35:15 CDT CPT-66500 Fluzone Preservative Free Intramuscular Suspension 17:35 :15 CDT CPT-48984 Microalbumin - LAB USE ONLY 11:52:05 CDT CPT-TCMM Transitional Care Mgmt-Moderate 11:33:57 CDT CPT-55479 No Charge Offi Visit 14:11:29 CDT CPT-49066 Magnesium - LAB USE ONLY 10:45:44 CDT CPT-64468 Lipid - LAB USE ONLY 10:45:44 CDT CPT-64241 CBC - LAB USE ONLY 10:45:44 CDT CPT-12371 Venipuncture Draw Fee 10:45:43 CDT CPT-13434 Venipuncture Draw Fee 18:21:27 CDT CPT-JTINJ Asp/Joint Injection 18:38:04 CDT CPT-61341 Immunization Each Additional Inj 17:38:04 CDT CPT-44379 Immunization Single Admin 17:38:04 CDT CPT-07625 Prevnar 13 17:38:04 CDT CPT-32064 Fluzone Quadrivalent preservative free (>=3yrs.) 17:38: 04 CDT CPT-98583 No Charge Offi Visit 11:14:03 CDT CPT-69971 Chest 2V Frontal and Lat 14:00:18 CDT CPT-OV Office Visit 16:10:28 CDT CPT-JTINJ Asp/Joint Injection 09:03:57 CDT CPT-Cryo Cryotherapy 09:35:49 [employer]ACHINE CPT-JTINJ Asp/Joint Injection 09:34:45 [employer]ACH[employer] CPT-J2930 Solu Medrol 125 mg (Methyl Prednisolone Sodium Succinate) 20:37:27 CDT CPT-83717 Abx/Therapy Injection 20:37:27 CDT CPT-22646 Port a cath flush 08:15:51 CDT CPT-68388 Port a cath flush 09:54:16 CDT CPT-79420 Port a cath flush 09:38:02 CDT CPT-21025 Port a cath flush 11:00:27 [employer]ACHINE
--- OUTSIDE RECORDS SUMMARY | 2017-12-29 01:39 | XMS REPORT | Clinical Summary ---
Author Author Admin, KAIN Organization [facility] Address Unknown Phone Unavailable Allergies, Adverse [...] Colon cancer screening V76.51 Active [facility] [employer]IST [employer]ULATOR Screening for malignant neoplasms of colon Screening for malignant neoplasm, colon V76.51 Active [facility] [employer]IST [employer]ATOR Screening for malignant neoplasms of colon Pneumonia 486 Active Harinder Hernandez DO Pneumonia, organism unspecified Bacteremia 790.7 Active Harinder Hernandez DO Unspecified bacteremia Clostridium difficile colitis 008.45 Active Harinder Hernandez DO Intestinal infection due to clostridium difficile Abdominal pain, right lower quadrant 789.03 Active Harinder Hernandez DO Abdominal pain, right lower quadrant Needs vaccination for influenza V04.81 Active 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 [employer] Need for prophylactic vaccination and inoculation against influenza Need for prophylactic vaccination against streptococcus pneumoniae ( Pneumococcus) V03.82 Active 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 [employer] Need for prophylactic vaccination against Streptococcus pneumoniae [...] Take 1 tab po every hs LOVASTATIN 01841534021 Active Johny Dawkins MD Active AMLODIPINE BESYLATE 5 MG ORAL TABS Take 1 tab po daily AMLODIPINE BESYLATE 06090039263 Active Tawnya Pardo MA Active VENTOLIN HFA 108 (90 BASE) MCG/ACT AERS 2 -4 puffs four times a day PRN 2013 ALBUTEROL SULFATE 67604759815 No Longer Active Jeri Sosa RPT,RMA Active DILAUDID 2 MG ORAL TABS Take 1/2 tab po every 4 hours as needed for pain 2014 HYDROMORPHONE HCL 00734838161 Active Harinder Hernandez DO Active ACEBUTOLOL HCL 200 MG CAPS 1 cap in the morning and 2 caps in the evening ACEBUTOLOL HCL 08732136030 No Longer Active Harinder Hernandez DO Active CEFDINIR 300 MG ORAL CAPS take 1 cap po bid x 10 days CEFDINIR 60871577585 No Longer Active Harinder Hernandez DO Active AMITRIPTYLINE HCL 25 MG ORAL TABS 1 q hs prn AMITRIPTYLINE HCL 77565005316 Active Tawnya Pardo MA Active LOVASTATIN 40 MG TABS 1 pill by mouth nightly for cholesterol LOVASTATIN 23595300885 No Longer Active Nettie Newberry APRN Active NITROSTAT 0.4 MG SUBL 1 tab under tongueas needed for chest pain ( may take 3 total, 5 min apart, then call 911) NITROGLYCERIN 67456824140 No Longer Active Nettie Newberry APRN Active POTASSIUM CHLORIDE CR 10 MEQ CPCR 1 capsule by mouth daily 02/14 POTASSIUM CHLORIDE 89840013593 No Longer Active Nettie Newberry APRN Active TESSALON PERLES 100 MG CAP 1 to 2 tablets by mouth 3 times daily as needed for cough BENZONATATE 56112887942 No Longer Active Nettie Newberry APRN Active THEOPHYLLINE ER 200 MG ORAL [id number] Take 1 tab every 12 hours THEOPHYLLINE 29905886621 Active Tawnya Pardo MA Active PREDNISONE 20 MG TAB 2 po qd x 5 days PREDNISONE 36597191375 No Longer Active Jae Morgan MD Active AZITHROMYCIN 250 MG TABS 2 po qd x 1 day, then 1 po qd x 4 days AZITHROMYCIN 30662221182 No Longer Active Jae Morgan MD Active PREDNISONE 20 MG TAB 1 tab twice daily for 3 day, then one daily for three days PREDNISONE 76789329228 No Longer Active Jae Morgan MD Active MECLIZINE HCL 25 MG TAB 1 tablet three times daily for 3 days, then 1/2 tab three times daily for 3 days. MECLIZINE HCL 95590455620 Active Harinder Hernandez DO Active SINGULAIR 10 MG TABS 1 pill by mouth every evening for breathing. MONTELUKAST SODIUM 81547788553 Active Tawnya Pardo MA Active TYLENOL 325 MG TAB 3 by mouth q4h as needed ACETAMINOPHEN 85830040954 Active Harinder Hernandez DO Active POTASSIUM CHLORIDE ER 10 MEQ CR-TABS take 1 tab po daily POTASSIUM CHLORIDE 87118686672 No Longer Active Harinder Hernandez DO Active PREDNISONE 20 MG TAB 1 TID x 2 days, then 1 BID x 3 days, then 1 Daily x 3 days, then stop PREDNISONE 73704455311 No Longer Active Jillina Frazell [employer]ATOR Active LEVAQUIN 500 MG TAB 1 tablet by mouth daily LEVOFLOXACIN 57587298350 No Longer Active Jillina Frazell [employer]YE [employer]IST [employer]ULATOR Active NEURONTIN 300 MG CAP 1 cap by mouth three times daily for restless leg 06/22 GABAPENTIN 02473158612 No Longer Active Harinder Hernandez DO Active BENZONATATE 100 MG CAPS 1 cap po TID PRN BENZONATATE 27799503956 No Longer Active Harinder Hernandez DO Active MONTELUKAST SODIUM 10 MG TABS 1 tab po in the evening MONTELUKAST SODIUM 38996935436 No Longer Active Harinder Hernandez DO Active MUPIROCIN 2 % OINT apply to affected area BID x 14 days MUPIROCIN 56115378820 No Longer Active Harinder Hernandez DO Active TYLENOL EXTRA STRENGTH 500 MG TABS as needed ACETAMINOPHEN 63187944392 No Longer Active Harinder Hernandez DO Active PREDNISONE 10 MG TABS 1 tab po daily PREDNISONE 19206320209 No Longer Active Harinder Hernandez DO Active PREDNISONE 20 MG TAB 2 tabs daily for 4 days, 1 tab daily for 4 days, 1/2 tab daily for 4 days PREDNISONE 34156721306 No Longer Active Harinder Hernandez DO Active AZITHROMYCIN 250 MG TABS 2 po qd x 1 day, then 1 po qd x 4 days AZITHROMYCIN 25607885303 No Longer Active Harinder W David DO Active PREDNISONE 20 MG TAB 3 tabs today, then 1 tab twice daily for 3 day, then one daily for three days PREDNISONE 08897089681 No Longer Active Harinder Hernandez DO Active NIFEDIAC CC 30 MG [id number] 1 tablet daily for raynaud's syndrome NIFEDIPINE 80477586994 No Longer Active Tawnya Pardo MA Active AMBIEN 10 MG TAB 1/2 tab by mouth at bedtime as needed for sleep ZOLPIDEM TARTRATE 42183303350 Active Harinder Hernandez DO Active CLONAZEPAM 1 MG TABS 1 tablet at bedtime for insomnia and restless legs 09/14 CLONAZEPAM 83067604397 Active Harinder Hernandez DO Active CLONAZEPAM 0.5 MG TABS 1 tab po daily CLONAZEPAM 82017771499 No Longer Active Harinder Hernandez DO Active PREDNISONE 10 MG TAB 1 tablet daily for COPD PREDNISONE 33362656410 Active Tawnya Pardo MA Active PROAIR HFA 108 (90 BASE) MCG/ACT AERS 2 puffs four times a day as needed 2012 ALBUTEROL SULFATE 26601549272 Active Tawnya Pardo MA Active FLOVENT HFA 110 MCG/ACT AERO 2 puffs inhaled b.i.d. FLUTICASONE PROPIONATE HFA 25055646891 Active Tawnya Pardo MA Active EPIPEN 0.3 MG/0.3ML URIEL DIRECTED EPINEPHRINE Active Demetrius JOHNSON Active ACIPHEX 20 MG TBEC 1 tab po daily RABEPRAZOLE SODIUM 39513551111 Active Tawnya Pardo MA Active TOPIRAMATE 25 MG TABS 1 tab po BID TOPIRAMATE 83541238549 Active Tawnya Pardo MA Active CLONAZEPAM 0.5 MG TABS 1 tab po daily CLONAZEPAM 0.5 MG TABS 373647 CLONAZEPAM Inactive PREDNISONE 20 MG TAB 3 tabs today, then 1 tab twice daily for 3 day, then one daily for three days PREDNISONE 20 MG TAB 778609 PREDNISONE Inactive PREDNISONE 20 MG TAB 2 tabs daily for 4 days, 1 tab daily for 4 days, 1/2 tab daily for 4 days PREDNISONE 20 MG TAB 799934 PREDNISONE Inactive PREDNISONE 10 MG TABS 1 tab po daily PREDNISONE 10 MG TABS 105880 PREDNISONE Inactive TYLENOL EXTRA STRENGTH 500 MG TABS as needed TYLENOL EXTRA STRENGTH 500 MG TABS 208732 ACETAMINOPHEN Inactive MUPIROCIN 2 % OINT apply to affected area BID x 14 days MUPIROCIN 2 % OINT 321526 MUPIROCIN Inactive MONTELUKAST SODIUM 10 MG TABS 1 tab po in the evening MONTELUKAST SODIUM 10 MG TABS 20010818 MONTELUKAST SODIUM Inactive BENZONATATE 100 MG CAPS 1 cap po TID PRN BENZONATATE 100 MG CAPS 197341 BENZONATATE Inactive NEURONTIN 300 MG CAP 1 cap by mouth three times daily for restless leg 06/22 NEURONTIN 300 MG CAP 808997 GABAPENTIN Inactive LEVAQUIN 500 MG TAB 1 tablet by mouth daily LEVAQUIN 500 MG TAB 192999 LEVOFLOXACIN Inactive PREDNISONE 20 MG TAB 1 TID x 2 days, then 1 BID x 3 days, then 1 Daily x 3 days, then stop PREDNISONE 20 MG TAB 101340 PREDNISONE Inactive POTASSIUM CHLORIDE ER 10 MEQ CR-TABS take 1 tab po daily POTASSIUM CHLORIDE ER 10 MEQ CR-TABS POTASSIUM CHLORIDE Inactive PREDNISONE 20 MG TAB 1 tab twice daily for 3 day, then one daily for three days PREDNISONE 20 MG TAB 793302 PREDNISONE Inactive TESSALON PERLES 100 MG CAP 1 to 2 tablets by mouth 3 times daily as needed for cough TESSALON PERLES 100 MG CAP 511609 BENZONATATE Inactive POTASSIUM CHLORIDE CR 10 MEQ [...] nightly for cholesterol LOVASTATIN 40 MG TABS 874592 LOVASTATIN Inactive CEFDINIR 300 MG ORAL CAPS take 1 cap po bid x 10 days CEFDINIR 300 MG ORAL CAPS 098043 CEFDINIR Inactive ACEBUTOLOL HCL 200 MG CAPS 1 cap in the morning and 2 caps in the evening ACEBUTOLOL HCL 200 MG CAPS 647991 ACEBUTOLOL HCL Inactive VENTOLIN HFA 108 (90 BASE) MCG/ACT AERS 2 -4 puffs four times a day PRN 2013 VENTOLIN HFA 108 (90 BASE) MCG/ACT AERS ALBUTEROL SULFATE Inactive AZITHROMYCIN 250 MG TABS 2 po qd x 1 day, then 1 po qd x 4 days AZITHROMYCIN 250 MG TABS 3737090 AZITHROMYCIN Inactive AZITHROMYCIN 250 MG TABS 2 po qd x 1 day, then 1 po qd x 4 days AZITHROMYCIN 250 MG TABS 4696203 AZITHROMYCIN Inactive PREDNISONE 20 MG TAB 2 po qd x 5 days PREDNISONE 20 MG TAB 688387 PREDNISONE Inactive Vital Signs Date Name Value [...] pressure, diastolic - 8462-4 72 mm[Hg] BP aadn blood pressure, systolic - 8480-6 108 mm[Hg] BP sys pulse rate E&M - 8867-4 65 /min Heart rate temperature E&M 97.5 [degF] Body temperature weight E&M - 3141-9 131.2 [lb_av] Weight Measured Diagnostic Results Date Name Value Unit Range Description Lab Report: Basic Metabolic Panel - Chemistry sodium, serum 138 mmol/L 447-935 1918/09/24 potassium, serum 3.5 mmol/L 3.5-5.2 chloride, serum [...] [phone] Encounters Code Encounter Date Provider Facility CPT-08049 Level 3 Est. Patient 12:14:34 CDT Harinder Hernandez [facility] CPT-35282 Level 3 Est. Patient 13:47:15 CDT Harinder Hernandez [facility] CPT-35171 Level 3 Est. Patient 14:08:24 CDT Harinder Cr [facility] CPT-48233 Level 3 Est. Patient 10:07:15 CDT Harinder Hernandez [facility] CPT-52134 Level 3 Est. Patient 10:06:59 CDT Harinder Cr [facility] CPT-11424 Level 3 Est. Patient 15:53:29 CDT Jae Morgan MD [facility] CPT-24022 Level 3 Est. Patient 17:19:04 CDT Harinder Cr David [facility] CPT-46242 Level 3 Est. Patient 11:13:01 CDT Harinder Hernandez [facility] CPT-39675 Level 3 Est. Patient 09:03:58 CDT Harinder Hernandez [facility] CPT-58859 Level 3 Est. Patient 14:46:45 [employer] Harinder Hernandez [facility] CPT-32464 Level 3 Est. Patient 09:35:49 [employer] Harinder Cr David [facility] CPT-79877 Level 3 Est. Patient 09:29:37 [employer] Harinder Cr David [facility] CPT-68346 Level 3 Est. Patient 15:51:07 CDT Harinder Hernandez [facility] CPT-68230 Level 3 Est. Patient 18:13:13 CDT Harinder Cr [facility] CPT-40198 Level 3 Est. Patient 10:44:19 CDT Harinder Hernandez [facility] CPT-38109 Level 4 Est. Patient 10:07:19 [employer] Harinder Cr [facility] CPT-61295 Level 3 Est. Patient 15:59:32 [employer] Harinder Cr [facility] Procedures Code Procedure Name Date Entry Date Standard Description CPT-55599 Immunization Each Additional Inj 17:38:04 CDT CPT-71041 Immunization Single Admin 17:38:04 CDT CPT-34610 Prevnar 13 17:38:04 CDT CPT-45199 Fluzone Quadrivalent preservative free (>=3yrs.) 17:38: 04 CDT CPT-30682 No Charge Offi Visit 11:14:03 CDT CPT-79344 Chest 2V Frontal and Lat 14:00:18 CDT CPT-OV Office Visit 16:10:28 CDT CPT-JTINJ Asp/Joint Injection 09:03:57 CDT CPT-Cryo Cryotherapy 09:35:49 [employer] CPT-JTINJ Asp/Joint Injection 09:34:45 [employer] CPT-J2930 Solu Medrol 125 mg (Methyl Prednisolone Sodium Succinate) 20:37:27 CDT CPT-16307 Abx/Therapy Injection 20:37:27 CDT CPT-32058 Port a cath flush 08:15:51 CDT CPT-27394 Port a cath flush 09:54:16 CDT CPT-18484 Port a cath flush 09:38:02 CDT CPT-39684 Port a cath flush 11:00:27 [employer]
--- OUTSIDE RECORDS SUMMARY | 2017-12-29 01:40 | XMS REPORT | Clinical Summary ---
Author Author Admin, QIE Organization [facility] [employer] Address Unknown Phone Unavailable Allergies, Adverse Reactions, [...] Active Harinder Hernandez DO VALIUM Critical Active aHrinder Hernandez DO DEMEROL Critical Active Harinder Hernandez [...] 4hrs PRN Wheezing Dx: J44.1 ALBUTEROL SULFATE 60930613361 Active Kaylah Newberry Active AMLODIPINE BESYLATE 5 MG TABS 1 tablet by mouth daily AMLODIPINE BESYLATE 79093183103 Active Harinder Hernandez DO Active NIFEDIPINE ER 30 MG ORAL [id number] 1 daily NIFEDIPINE 40410323785 No Longer Active Harinder Hernandez DO Active POTASSIUM CHLORIDE 20 MEQ ORAL PACK Take 1 tablet by mouth daily POTASSIUM CHLORIDE 41923290399 Active Ciera Pimentel Active FLOVENT HFA 110 MCG/ACT AERO 2 puffs inhaled b.i.d. FLUTICASONE PROPIONATE HFA 95231304445 Active Harinder Hernandez DO Active POTASSIUM CHLORIDE CR 10 MEQ CPCR 1 capsule by mouth daily POTASSIUM CHLORIDE 15593566318 Active Harinder Hernandez DO Active EPIPEN 2-BRUNA 0.3 MG/0.3ML INJ SOAJ 1 INJ NEEDED EPINEPHRINE 13787928721 Active Harinder Hernandez DO Active PREDNISONE 20 MG TAB 1 tab twice daily for 3 day, then one daily for three days PREDNISONE 34690061267 No Longer Active Harinder Hernandez DO Active PREDNISONE 20 MG TAB 1 tablet twice daily for 2 days, then 1 tablet once daily for 2 days PREDNISONE 11535402288 No Longer Active Harinder Hernandez DO Active ASMANEX 120 METERED DOSES 220 MCG/INH INH AEPB 2 puffs orally twice daily MOMETASONE FUROATE 74818199858 Active Jeri Sosa RPT,RMA Active TOPIRAMATE 25 MG TABS 1 tab po BID TOPIRAMATE 57308420710 No Longer Active Nettie Newberry APRN Active AMLODIPINE BESYLATE 5 MG ORAL TABS Take 1 tab po daily AMLODIPINE BESYLATE 76055371345 No Longer Active Nettie Rohith MAHENDRA Active MECLIZINE HCL 25 MG TAB 1 tablet three times daily for 3 days, then 1/2 tab three times daily for 3 days. MECLIZINE HCL 28203708723 No Longer Active Nettie Newberry APRN Active AMITRIPTYLINE HCL 25 MG ORAL TABS 1 q hs prn AMITRIPTYLINE HCL 28021708562 No Longer Active Nettie Rohith MAHENDRA Active DILAUDID 2 MG ORAL TABS Take 1/2 tab po every 4 hours as needed for pain 2014 HYDROMORPHONE HCL 94527960300 No Longer Active Nettie Newberry APRN Active CLOPIDOGREL BISULFATE 75 MG ORAL TABS 1 tab by mouth once daily CLOPIDOGREL BISULFATE 74445301909 Active Tanwya Pardo MA Active ATORVASTATIN CALCIUM 10 MG ORAL TABS 1 at bedtime ATORVASTATIN CALCIUM 43570135654 Active Tawnya Pardo MA Active LOVASTATIN 40 MG ORAL TABS Take 1 tab po every hs LOVASTATIN 83663374560 No Longer Active Harinder Hernandez DO Active PREDNISONE 20 MG TAB 2 tabs daily for 4 days, 1 tab daily for 4 days, 1/2 tab daily for 4 days PREDNISONE 31399927146 No Longer Active Harinder Hernandez DO Active LEVAQUIN 500 MG ORAL TABS Take 1 tab po daily x 8 days LEVOFLOXACIN 88405302969 No Longer Active Harinder Hernandez DO Active VENTOLIN HFA 108 (90 BASE) MCG/ACT AERS 2 -4 puffs four times a day PRN 2013 ALBUTEROL SULFATE 64814538673 No Longer Active Jeri Sosa RPT,RMA Active ACEBUTOLOL HCL 200 MG CAPS 1 cap in the morning and 2 caps in the evening ACEBUTOLOL HCL 57397128566 No Longer Active Harinder Hernandez DO Active CEFDINIR 300 MG ORAL CAPS take 1 cap po bid x 10 days CEFDINIR 41013674260 No Longer Active Harinder Hernandez DO Active LOVASTATIN 40 MG TABS 1 pill by mouth nightly for cholesterol LOVASTATIN 80137256329 No Longer Active Nettie Newberry APRN Active NITROSTAT 0.4 MG SUBL 1 tab under tongueas needed for chest pain ( may take 3 total, 5 min apart, then call 911) NITROGLYCERIN 08315830574 No Longer Active Nettie Newberry APRN Active POTASSIUM CHLORIDE CR 10 MEQ CPCR 1 capsule by mouth daily 02/14 POTASSIUM CHLORIDE 14480680690 No Longer Active Nettie Newberry APRN Active TESSALON PERLES 100 MG CAP 1 to 2 tablets by mouth 3 times daily as needed for cough BENZONATATE 92274555698 No Longer Active Nettie Newberry APRN Active THEOPHYLLINE ER 200 MG ORAL [id number] Take 1 tab every 12 hours THEOPHYLLINE 01114373178 Active Tawnya Pardo MA Active PREDNISONE 20 MG TAB 2 po qd x 5 days PREDNISONE 00790539837 No Longer Active Jae Morgan MD Active AZITHROMYCIN 250 MG TABS 2 po qd x 1 day, then 1 po qd x 4 days AZITHROMYCIN 14590761669 No Longer Active Jae Morgan MD Active PREDNISONE 20 MG TAB 1 tab twice daily for 3 day, then one daily for three days PREDNISONE 08302878044 No Longer Active Jae Morgan MD Active SINGULAIR 10 MG TABS 1 pill by mouth every evening for breathing. MONTELUKAST SODIUM 71086260663 Active Tawnya Pardo MA Active TYLENOL 325 MG TAB 3 by mouth q4h as needed ACETAMINOPHEN 00390951340 Active Harinder Hernandez DO Active POTASSIUM CHLORIDE ER 10 MEQ CR-TABS take 1 tab po daily POTASSIUM CHLORIDE 08524314528 No Longer Active Harinder Hernadnez DO Active PREDNISONE 20 MG TAB 1 TID x 2 days, then 1 BID x 3 days, then 1 Daily x 3 days, then stop PREDNISONE 10284691096 No Longer Active Jillina Frazell COMPUTER FORENSIC SPECIALIST Active LEVAQUIN 500 MG TAB 1 tablet by mouth daily LEVOFLOXACIN 54462438610 No Longer Active Jillina Frazell COMPUTER FORENSIC SPECIALIST Active NEURONTIN 300 MG CAP 1 cap by mouth three times daily for restless leg 06/22 GABAPENTIN 26778097323 No Longer Active Harinder Hernandez DO Active BENZONATATE 100 MG CAPS 1 cap po TID PRN BENZONATATE 88347111344 No Longer Active Harinder Hernandez DO Active MONTELUKAST SODIUM 10 MG TABS 1 tab po in the evening MONTELUKAST SODIUM 37523521290 No Longer Active Harinder Hernandez DO Active MUPIROCIN 2 % OINT apply to affected area BID x 14 days MUPIROCIN 30071084811 No Longer Active Harinder Hernandez DO Active TYLENOL EXTRA STRENGTH 500 MG TABS as needed ACETAMINOPHEN 47655713256 No Longer Active Harinder Hernandez DO Active PREDNISONE 10 MG TABS 1 tab po daily PREDNISONE 76641128920 No Longer Active Harinder Hernandez DO Active PREDNISONE 20 MG TAB 2 tabs daily for 4 days, 1 tab daily for 4 days, 1/2 tab daily for 4 days PREDNISONE 43627973903 No Longer Active Harinder Hernandez DO Active AZITHROMYCIN 250 MG TABS 2 po qd x 1 day, then 1 po qd x 4 days AZITHROMYCIN 08688142997 No Longer Active Harinder Hernandez DO Active PREDNISONE 20 MG TAB 3 tabs today, then 1 tab twice daily for 3 day, then one daily for three days PREDNISONE 84643894335 No Longer Active Harinder Hernandez DO Active NIFEDIAC CC 30 MG [id number] 1 tablet daily for raynaud's syndrome NIFEDIPINE 17933216015 No Longer Active Tawnya Pardo MA Active AMBIEN 10 MG TAB 1/2 tab by mouth at bedtime as needed for sleep ZOLPIDEM TARTRATE 94982403515 Active Harinder Hernandez DO Active CLONAZEPAM 1 MG TABS 1 tablet at bedtime for insomnia and restless legs 09/14 CLONAZEPAM 12192209482 Active Harinder Hernandez DO Active CLONAZEPAM 0.5 MG TABS 1 tab po daily CLONAZEPAM 84221522086 No Longer Active Harinder Hernandez DO Active PREDNISONE 10 MG TAB 1 tablet daily for COPD PREDNISONE 18357959365 Active Tawnya Pardo MA Active PROAIR HFA 108 (90 BASE) MCG/ACT AERS 2 puffs four times a day as needed 2012 ALBUTEROL SULFATE 56658464400 Active Tawnya Pardo MA Active FLOVENT HFA 110 MCG/ACT AERO 2 puffs inhaled b.i.d. FLUTICASONE PROPIONATE HFA 25276282640 Active Tawnya Pardo MA Active ACIPHEX 20 MG TBEC 1 tab po daily RABEPRAZOLE SODIUM 79513954702 Active Kaylah Newberry Active CLONAZEPAM 0.5 MG TABS 1 tab po daily CLONAZEPAM 0.5 MG TABS 779186 CLONAZEPAM Inactive PREDNISONE 20 MG TAB 3 tabs today, then 1 tab twice daily for 3 day, then one daily for three days PREDNISONE 20 MG TAB 296581 PREDNISONE Inactive PREDNISONE 20 MG TAB 2 tabs daily for 4 days, 1 tab daily for 4 days, 1/2 tab daily for 4 days PREDNISONE 20 MG TAB 434789 PREDNISONE Inactive PREDNISONE 10 MG TABS 1 tab po daily PREDNISONE 10 MG TABS 866379 PREDNISONE Inactive TYLENOL EXTRA STRENGTH 500 MG TABS as needed TYLENOL EXTRA STRENGTH 500 MG TABS 324893 ACETAMINOPHEN Inactive MUPIROCIN 2 % OINT apply to affected area BID x 14 days MUPIROCIN 2 % OINT 690698 MUPIROCIN Inactive MONTELUKAST SODIUM 10 MG TABS 1 tab po in the evening MONTELUKAST SODIUM 10 MG TABS 20010818 MONTELUKAST SODIUM Inactive BENZONATATE 100 MG CAPS 1 cap po TID PRN BENZONATATE 100 MG CAPS 19730321 BENZONATATE Inactive NEURONTIN 300 MG CAP 1 cap by mouth three times daily for restless leg 06/22 NEURONTIN 300 MG CAP 772073 GABAPENTIN Inactive LEVAQUIN 500 MG TAB 1 tablet by mouth daily LEVAQUIN 500 MG TAB 546119 LEVOFLOXACIN Inactive PREDNISONE 20 MG TAB 1 TID x 2 days, then 1 BID x 3 days, then 1 Daily x 3 days, then stop PREDNISONE 20 MG TAB 016487 PREDNISONE Inactive POTASSIUM CHLORIDE ER 10 MEQ CR-TABS take 1 tab po daily POTASSIUM CHLORIDE ER 10 MEQ CR-TABS POTASSIUM CHLORIDE Inactive PREDNISONE 20 MG TAB 1 tab twice daily for 3 day, then one daily for three days PREDNISONE 20 MG TAB 853196 PREDNISONE Inactive TESSALON PERLES 100 MG CAP 1 to 2 tablets by mouth 3 times daily as needed for cough TESSALON PERLES 100 MG CAP 470401 BENZONATATE Inactive POTASSIUM CHLORIDE CR 10 MEQ CPCR 1 capsule by mouth daily 02/14 POTASSIUM CHLORIDE CR 10 MEQ CPCR POTASSIUM CHLORIDE Inactive NITROSTAT 0.4 MG SUBL 1 tab under tongueas needed for chest pain ( may take 3 total, 5 min apart, then call 911) NITROSTAT 0.4 MG SUBL 615253 NITROGLYCERIN Inactive LOVASTATIN 40 MG TABS 1 pill by mouth nightly for cholesterol LOVASTATIN 40 MG TABS 245559 LOVASTATIN Inactive CEFDINIR 300 MG ORAL CAPS take 1 cap po bid x 10 days CEFDINIR 300 MG ORAL CAPS 20021018 CEFDINIR Inactive ACEBUTOLOL HCL 200 MG CAPS 1 cap in the morning and 2 caps in the evening ACEBUTOLOL HCL 200 MG CAPS 396584 ACEBUTOLOL HCL Inactive VENTOLIN HFA 108 (90 BASE) MCG/ACT AERS 2 -4 puffs four times a day PRN 2013 VENTOLIN HFA 108 (90 BASE) MCG/ACT AERS ALBUTEROL SULFATE Inactive LEVAQUIN 500 MG ORAL TABS Take 1 tab po daily x 8 days LEVAQUIN 500 MG ORAL TABS 110820 LEVOFLOXACIN Inactive PREDNISONE 20 MG TAB 2 tabs daily for 4 days, 1 tab daily for 4 days, 1/2 tab daily for 4 days PREDNISONE 20 MG TAB 187007 PREDNISONE Inactive LOVASTATIN 40 MG ORAL TABS Take 1 tab po every hs LOVASTATIN 40 MG ORAL TABS 789124 LOVASTATIN Inactive DILAUDID 2 MG ORAL TABS Take 1/2 tab po every 4 hours as needed for pain 2014 DILAUDID 2 MG ORAL TABS 172092 HYDROMORPHONE HCL Inactive AMITRIPTYLINE HCL 25 MG ORAL TABS 1 q hs prn AMITRIPTYLINE HCL 25 MG ORAL TABS 094348 AMITRIPTYLINE HCL Inactive MECLIZINE HCL 25 MG TAB 1 tablet three times daily for 3 days, then 1/2 tab three times daily for 3 days. MECLIZINE HCL 25 MG TAB 400518 MECLIZINE HCL Inactive AMLODIPINE BESYLATE 5 MG ORAL TABS Take 1 tab po daily AMLODIPINE BESYLATE 5 MG ORAL TABS 315163 AMLODIPINE BESYLATE Inactive TOPIRAMATE 25 MG TABS 1 tab po BID TOPIRAMATE 25 MG TABS 458809 TOPIRAMATE Inactive PREDNISONE 20 MG TAB 1 tablet twice daily for 2 days, then 1 tablet once daily for 2 days PREDNISONE 20 MG TAB 580834 PREDNISONE Inactive PREDNISONE 20 MG TAB 1 tab twice daily for 3 day, then one daily for three days PREDNISONE 20 MG TAB 914780 PREDNISONE Inactive NIFEDIPINE ER 30 MG ORAL [id number] 1 daily NIFEDIPINE ER 30 MG ORAL [id number] NIFEDIPINE Inactive AZITHROMYCIN 250 MG TABS 2 po qd x 1 day, then 1 po qd x 4 days AZITHROMYCIN 250 MG TABS 7132727 AZITHROMYCIN Inactive AZITHROMYCIN 250 MG TABS 2 po qd x 1 day, then 1 po qd x 4 days AZITHROMYCIN 250 MG TABS 3359430 AZITHROMYCIN Inactive PREDNISONE 20 MG TAB 2 po qd x 5 days PREDNISONE 20 MG TAB 679859 PREDNISONE Inactive Vital Signs Date Name Value [...] Panel - Chemistry sodium, serum 137 mmol/L 492-713 5693/01/03 potassium, serum 3.4 mmol/L 3.5-5.2 chloride, serum [...] Magnesium - Chemistry cholesterol, serum 180 mg/dL 363-493 7121/08/08 triglyceride, serum, fasting 92 mg/dL 30-200 HDL cholesterol, serum 66 mg/dL 32-96 LDL cholesterol, serum 96 mg/dL 0-130 sodium, serum 142 mmol/L 364-542 0099/08/08 carbon dioxide, venous blood 27.4 mmol/L 21.0-32.0 [...] 10.0-20.0 Encounters Code Encounter Date Provider Facility CPT-75664 Level 3 Est. Patient 09:58:58 CDT Harinder Hernandez [facility] CPT-01144 Level 3 Est. Patient 12:37:21 CDT Harinder Hernandez [facility] CPT-22251 Level 3 Est. Patient 18:37:17 CDT Harinder Hernandez [facility] CPT-02718 Level 4 Est. Patient 11:15:54 CDT Nettie Newberry [facility] CPT-30481 Level 3 Est. Patient 16:42:24 CDT Harinder Cr [facility] CPT-37453 Level 3 Est. Patient 15:03:36 CDT Harinder Hernandez [facility] CPT-12085 Level 3 Est. Patient 15:03:20 CDT Harinder Hernandez [facility] CPT-21373 Level 3 Est. Patient 12:14:34 CDT Harinder Hernandez [facility] CPT-51664 Level 3 Est. Patient 13:47:15 CDT Harinder Hernandez [facility] CPT-74912 Level 3 Est. Patient 14:08:24 CDT Harinder Hernandez [facility] CPT-99665 Level 3 Est. Patient 10:07:15 CDT Harinder Hernandez [facility] CPT-46404 Level 3 Est. Patient 10:06:59 CDT Harinder Hernandez [facility] CPT-93810 Level 3 Est. Patient 15:53:29 CDT Jae Morgan MD [facility] CPT-08778 Level 3 Est. Patient 17:19:04 CDT Harinder Hernandez [facility] CPT-24757 Level 3 Est. Patient 11:13:01 CDT Harinder Hernandez [facility] CPT-55989 Level 3 Est. Patient 09:03:58 CDT Harinder Hernandez [facility] CPT-85825 Level 3 Est. Patient 14:46:45 [employer]PERATORS TEACHER Harinder Hernandez [facility] CPT-39627 Level 3 Est. Patient 09:35:49 OPERATORS TEACHER Harinder Hernandez [facility] CPT-18990 Level 3 Est. Patient 09:29:37 OPERATORS TEACHER Harinder Hernandez [facility] CPT-40060 Level 3 Est. Patient 15:51:07 CDT Harinder Hernandez [facility] CPT-75318 Level 3 Est. Patient 18:13:13 CDT Harinder Shaye Hernandez [facility] CPT-40397 Level 3 Est. Patient 10:44:19 CDT Harinder Hernandez [facility] CPT-41545 Level 4 Est. Patient 10:07:19 OPERATORS TEACHER Harinder Hernandez [facility] CPT-64792 Level 3 Est. Patient 15:59:32 OPERATORS TEACHER Harinder Hernandez [facility] Procedures Code Procedure Name Date Entry Date Standard Description CPT-06831 BMP - LAB USE ONLY 16:45:09 OPERATORS TEACHER CPT-37669 Port a cath flush 12:00:13 OPERATORS TEACHER CPT-TCMM Transitional Care Mgmt-Moderate 11:20:16 OPERATORS TEACHER CPT-09019 First Vx - Ix admin for Medicare patients 17:35:15 CDT CPT-05024 Fluzone Preservative Free Intramuscular Suspension 17:35 :15 CDT CPT-31271 Microalbumin - LAB USE ONLY 11:52:05 CDT CPT-TCMM Transitional Care Mgmt-Moderate 11:33:57 CDT CPT-44644 No Charge Offi Visit 14:11:29 CDT CPT-95936 Magnesium - LAB USE ONLY 10:45:44 CDT CPT-02187 Lipid - LAB USE ONLY 10:45:44 CDT CPT-32549 CBC - LAB USE ONLY 10:45:44 CDT CPT-69164 Venipuncture Draw Fee 10:45:43 CDT CPT-38700 Venipuncture Draw Fee 18:21:27 CDT CPT-JTINJ Asp/Joint Injection 18:38:04 CDT CPT-28080 Immunization Each Additional Inj 17:38:04 CDT CPT-91064 Immunization Single Admin 17:38:04 CDT CPT-33765 Prevnar 13 17:38:04 CDT CPT-51873 Fluzone Quadrivalent preservative free (>=3yrs.) 17:38: 04 CDT CPT-41716 No Charge Offi Visit 11:14:03 CDT CPT-15289 Chest 2V Frontal and Lat 14:00:18 CDT CPT-OV Office Visit 16:10:28 CDT CPT-JTINJ Asp/Joint Injection 09:03:57 CDT CPT-Cryo Cryotherapy 09:35:49 [employer]PERATORS TEACHER CPT-JTINJ Asp/Joint Injection 09:34:45 OPERATORS TEACHER CPT-J2930 Solu Medrol 125 mg (Methyl Prednisolone Sodium Succinate) 20:37:27 CDT CPT-16366 Abx/Therapy Injection 20:37:27 CDT CPT-74552 Port a cath flush 08:15:51 CDT CPT-85123 Port a cath flush 09:54:16 CDT CPT-73837 Port a cath flush 09:38:02 CDT CPT-81720 Port a cath flush 11:00:27 OPERATORS TEACHER
--- OUTSIDE RECORDS SUMMARY | 2017-12-29 01:42 | XMS REPORT | Clinical Summary ---
[...] MEQ CPCR 1 capsule BID POTASSIUM CHLORIDE [id number] Active Kortney Mccain Active FLUOXETINE HCL 10 MG ORAL CAPS 1 po qd for depression/anxiety FLUOXETINE HCL 31436020821 Active Harinder Hernandez DO Active VOLTAREN 1 % GEL apply q 6-8 hour to left arm as needed for pain DICLOFENAC SODIUM 90680432566 Active Harinder Hernandez DO Active LASIX 20 MG TAB 1 tablet by mouth every morning FUROSEMIDE 81589536530 Prince Mccain Active POTASSIUM CHLORIDE 20 MEQ ORAL PACK 1 tab po BID POTASSIUM CHLORIDE 14570291541 Prince Mccain Active ALBUTEROL SULFATE 0.083 % NEBU SOLN 1 vial neb q 4hrs for severe asthma. 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 FLUTICASONE PROPIONATE HFA 83129274018 Active Harinder Hernandez DO Active EPIPEN 2-BRUNA 0.3 MG/0.3ML INJ SOAJ 1 INJ NEEDED EPINEPHRINE 03402849244 Active Harinder Hernandez DO Active PREDNISONE 20 MG TAB 1 tab twice daily for 3 day, then one daily for three days PREDNISONE 81398638412 No Longer Active Harinder Hernandez DO Active PREDNISONE 20 MG TAB 1 tablet twice daily for 2 days, then 1 tablet once daily for 2 days PREDNISONE 21790522303 No Longer Active Harinder Hernandez DO Active ASMANEX 120 METERED DOSES 220 MCG/INH INH AEPB 2 puffs orally twice daily MOMETASONE FUROATE 78022504962 Active Jeri Sosa RPT,RMA Active TOPIRAMATE 25 MG TABS 1 tab po BID TOPIRAMATE 47094781148 No Longer Active Nettie Newberry APRN Active AMLODIPINE BESYLATE 5 MG ORAL TABS Take 1 tab po daily AMLODIPINE BESYLATE 61545424184 No Longer Active Nettie Newberry APRN Active MECLIZINE HCL 25 MG TAB 1 tablet three times daily for 3 days, then 1/2 tab three times daily for 3 days. MECLIZINE HCL 79937286979 No Longer Active Nettie Newberry APRN Active AMITRIPTYLINE HCL 25 MG ORAL TABS 1 q hs prn AMITRIPTYLINE HCL 64854122789 No Longer Active Nettie Newberry APRN Active DILAUDID 2 MG ORAL TABS Take 1/2 tab po every 4 hours as needed for pain 2014 HYDROMORPHONE HCL 44343690059 No Longer Active Nettie Newberry APRN Active CLOPIDOGREL BISULFATE 75 MG ORAL TABS 1 tab by mouth once daily CLOPIDOGREL BISULFATE 71916627691 Active Harinder Hernandez DO Active ATORVASTATIN CALCIUM 10 MG ORAL TABS 1 at bedtime ATORVASTATIN CALCIUM 24107375042 Active Tawnya Pardo MA Active LOVASTATIN 40 MG ORAL TABS Take 1 tab po every hs LOVASTATIN 53217496066 No Longer Active Harinder Hernandez DO Active PREDNISONE 20 MG TAB 2 tabs daily for 4 days, 1 tab daily for 4 days, 1/2 tab daily for 4 days PREDNISONE 36504568563 No Longer Active Harinder Hernandez DO Active LEVAQUIN 500 MG ORAL TABS Take 1 tab po daily x 8 days LEVOFLOXACIN 34801757766 No Longer Active Harinder Hernandez DO Active VENTOLIN HFA 108 (90 BASE) MCG/ACT AERS 2 -4 puffs four times a day PRN 2013 ALBUTEROL SULFATE 45711023541 No Longer Active Jeri Sosa RPT,RMA Active ACEBUTOLOL HCL 200 MG CAPS 1 cap in the morning and 2 caps in the evening ACEBUTOLOL HCL 79914509749 No Longer Active Harinder Hernandez DO Active CEFDINIR 300 MG ORAL CAPS take 1 cap po bid x 10 days CEFDINIR 89694646335 No Longer Active Harinder Hernandez DO Active LOVASTATIN 40 MG TABS 1 pill by mouth nightly for cholesterol LOVASTATIN 28678633366 No Longer Active Nettie Newberry APRN Active NITROSTAT 0.4 MG SUBL 1 tab under tongueas needed for chest pain ( may take 3 total, 5 min apart, then call 911) NITROGLYCERIN 78490070275 No Longer Active Nettie Newberry APRN Active POTASSIUM CHLORIDE CR 10 MEQ CPCR 1 capsule by mouth daily 02/14 POTASSIUM CHLORIDE 24353023190 No Longer Active Nettie Newberry APRN Active TESSALON PERLES 100 MG CAP 1 to 2 tablets by mouth 3 times daily as needed for cough BENZONATATE 38903276625 No Longer Active Nettie King MAHENDRA Active THEOPHYLLINE ER 200 MG ORAL [id number] Take 1 tab every 12 hours THEOPHYLLINE 40757346615 Active Kortneyalice Mccain Active PREDNISONE 20 MG TAB 2 po qd x 5 days PREDNISONE 95491738786 No Longer Active Jae Morgan MD Active AZITHROMYCIN 250 MG TABS 2 po qd x 1 day, then 1 po qd x 4 days AZITHROMYCIN 34539610987 No Longer Active Jae Morgan MD Active PREDNISONE 20 MG TAB 1 tab twice daily for 3 day, then one daily for three days PREDNISONE 58548557580 No Longer Active Jae Morgan MD Active SINGULAIR 10 MG TABS 1 pill by mouth every evening for breathing. MONTELUKAST SODIUM 92419672828 Active Tawnya Pardo MA Active TYLENOL 325 MG TAB 3 by mouth q4h as needed ACETAMINOPHEN 44593549685 Active Harinder Hernandez DO Active POTASSIUM CHLORIDE ER 10 MEQ CR-TABS take 1 tab po daily POTASSIUM CHLORIDE 29303030519 No Longer Active Harinder Hernandez DO Active PREDNISONE 20 MG TAB 1 TID x 2 days, then 1 BID x 3 days, then 1 Daily x 3 days, then stop PREDNISONE 02837392416 No Longer Active Jillkvng Frashai MCCRAY Active LEVAQUIN 500 MG TAB 1 tablet by mouth daily LEVOFLOXACIN 49465041566 No Longer Active Jillina Frazell MAHENDRA Active NEURONTIN 300 MG CAP 1 cap by mouth three times daily for restless leg 06/22 GABAPENTIN 06472092482 No Longer Active Harinder Hernandez DO Active BENZONATATE 100 MG CAPS 1 cap po TID PRN BENZONATATE 15757040408 No Longer Active Harinder Hernandez DO Active MONTELUKAST SODIUM 10 MG TABS 1 tab po in the evening MONTELUKAST SODIUM 02746440268 No Longer Active Harinder Hernandez DO Active MUPIROCIN 2 % OINT apply to affected area BID x 14 days MUPIROCIN 26858293317 No Longer Active Harinder Hernandez DO Active TYLENOL EXTRA STRENGTH 500 MG TABS as needed ACETAMINOPHEN 36605431783 No Longer Active Harinder Hernandez DO Active PREDNISONE 10 MG TABS 1 tab po daily PREDNISONE 31407427280 No Longer Active Harinder Hernandez DO Active PREDNISONE 20 MG TAB 2 tabs daily for 4 days, 1 tab daily for 4 days, 1/2 tab daily for 4 days PREDNISONE 10559966196 No Longer Active Harinder Hernandez DO Active AZITHROMYCIN 250 MG TABS 2 po qd x 1 day, then 1 po qd x 4 days AZITHROMYCIN 96552590076 No Longer Active Harinder Hernandez DO Active PREDNISONE 20 MG TAB 3 tabs today, then 1 tab twice daily for 3 day, then one daily for three days PREDNISONE 91081660367 No Longer Active Harinder Hernandez DO Active NIFEDIAC CC 30 MG [id number] 1 tablet daily for raynaud's syndrome NIFEDIPINE 34960575167 No Longer Active Tawnya Pardo MA Active AMBIEN 10 MG TAB 1/2 tab by mouth at bedtime as needed for sleep ZOLPIDEM TARTRATE 35368442346 Active Ciera Pimenetl Active CLONAZEPAM 1 MG TABS 1 tablet at bedtime for insomnia and restless legs 09/14 CLONAZEPAM 31239690525 Active Harinder Hernandez DO Active CLONAZEPAM 0.5 MG TABS 1 tab po daily CLONAZEPAM 73753464194 No Longer Active Harinder Hernandez DO Active PREDNISONE 10 MG TAB 1 tablet daily for COPD PREDNISONE 60027126914 Active Ciera Pimentel Active PROAIR HFA 108 (90 BASE) MCG/ACT AERS 2 puffs four times a day as needed 2012 ALBUTEROL SULFATE 71040994288 Active Harinder Hernandez DO Active FLOVENT HFA 110 MCG/ACT AERO 2 puffs inhaled b.i.d. FLUTICASONE PROPIONATE HFA 81023264086 Active Kortney Mccain Active ACIPHEX 20 MG TBEC 1 tab po daily RABEPRAZOLE SODIUM 64977887772 Active Kaylah Newberry Active CLONAZEPAM 0.5 MG TABS 1 tab po daily CLONAZEPAM 0.5 MG TABS 093941 CLONAZEPAM Inactive PREDNISONE 20 MG TAB 3 tabs today, then 1 tab twice daily for 3 day, then one daily for three days PREDNISONE 20 MG TAB 174341 PREDNISONE Inactive PREDNISONE 20 MG TAB 2 tabs daily for 4 days, 1 tab daily for 4 days, 1/2 tab daily for 4 days PREDNISONE 20 MG TAB 280925 PREDNISONE Inactive PREDNISONE 10 MG TABS 1 tab po daily PREDNISONE 10 MG TABS 856692 PREDNISONE Inactive TYLENOL EXTRA STRENGTH 500 MG TABS as needed TYLENOL EXTRA STRENGTH 500 MG TABS 834856 ACETAMINOPHEN Inactive MUPIROCIN 2 % OINT apply to affected area BID x 14 days MUPIROCIN 2 % OINT 871949 MUPIROCIN Inactive MONTELUKAST SODIUM 10 MG TABS 1 tab po in the evening MONTELUKAST SODIUM 10 MG TABS 20010818 MONTELUKAST SODIUM Inactive BENZONATATE 100 MG CAPS 1 cap po TID PRN BENZONATATE 100 MG CAPS 741942 BENZONATATE Inactive NEURONTIN 300 MG CAP 1 cap by mouth three times daily for restless leg 06/22 NEURONTIN 300 MG CAP 805986 GABAPENTIN Inactive LEVAQUIN 500 MG TAB 1 tablet by mouth daily LEVAQUIN 500 MG TAB 467796 LEVOFLOXACIN Inactive PREDNISONE 20 MG TAB 1 TID x 2 days, then 1 BID x 3 days, then 1 Daily x 3 days, then stop PREDNISONE 20 MG TAB 732713 PREDNISONE Inactive POTASSIUM CHLORIDE ER 10 MEQ CR-TABS take 1 tab po daily POTASSIUM CHLORIDE ER 10 MEQ CR-TABS POTASSIUM CHLORIDE Inactive PREDNISONE 20 MG TAB 1 tab twice daily for 3 day, then one daily for three days PREDNISONE 20 MG TAB 156673 PREDNISONE Inactive TESSALON PERLES 100 MG CAP 1 to 2 tablets by mouth 3 times daily as needed for cough TESSALON PERLES 100 MG CAP 534180 BENZONATATE Inactive POTASSIUM CHLORIDE CR 10 MEQ CPCR 1 capsule by mouth daily 02/14 POTASSIUM CHLORIDE CR 10 MEQ CPCR POTASSIUM CHLORIDE Inactive NITROSTAT 0.4 MG SUBL 1 tab under tongueas needed for chest pain ( may take 3 total, 5 min apart, then call 911) NITROSTAT 0.4 MG SUBL 028670 NITROGLYCERIN Inactive LOVASTATIN 40 MG TABS 1 pill by mouth nightly for cholesterol LOVASTATIN 40 MG TABS LOVASTATIN Inactive CEFDINIR 300 MG ORAL CAPS take 1 cap po bid x 10 days CEFDINIR 300 MG ORAL CAPS 594076 CEFDINIR Inactive ACEBUTOLOL HCL 200 MG CAPS 1 cap in the morning and 2 caps in the evening ACEBUTOLOL HCL 200 MG CAPS 745583 ACEBUTOLOL HCL Inactive VENTOLIN HFA 108 (90 BASE) MCG/ACT AERS 2 -4 puffs four times a day PRN 2013 VENTOLIN HFA 108 (90 BASE) MCG/ACT AERS ALBUTEROL SULFATE Inactive LEVAQUIN 500 MG ORAL TABS Take 1 tab po daily x 8 days LEVAQUIN 500 MG ORAL TABS 084927 LEVOFLOXACIN Inactive PREDNISONE 20 MG TAB 2 tabs daily for 4 days, 1 tab daily for 4 days, 1/2 tab daily for 4 days PREDNISONE 20 MG TAB 791356 PREDNISONE Inactive LOVASTATIN 40 MG ORAL TABS Take 1 tab po every hs LOVASTATIN 40 MG ORAL TABS 645491 LOVASTATIN Inactive DILAUDID 2 MG ORAL TABS Take 1/2 tab po every 4 hours as needed for pain 2014 DILAUDID 2 MG ORAL TABS 273585 HYDROMORPHONE HCL Inactive AMITRIPTYLINE HCL 25 MG ORAL TABS 1 q hs prn AMITRIPTYLINE HCL 25 MG ORAL TABS 074963 AMITRIPTYLINE HCL Inactive MECLIZINE HCL 25 MG TAB 1 tablet three times daily for 3 days, then 1/2 tab three times daily for 3 days. MECLIZINE HCL 25 MG TAB 579748 MECLIZINE HCL Inactive AMLODIPINE BESYLATE 5 MG ORAL TABS Take 1 tab po daily AMLODIPINE BESYLATE 5 MG ORAL TABS 595714 AMLODIPINE BESYLATE Inactive TOPIRAMATE 25 MG TABS 1 tab po BID TOPIRAMATE 25 MG TABS 377871 TOPIRAMATE Inactive PREDNISONE 20 MG TAB 1 tablet twice daily for 2 days, then 1 tablet once daily for 2 days PREDNISONE 20 MG TAB 999011 PREDNISONE Inactive PREDNISONE 20 MG TAB 1 tab twice daily for 3 day, then one daily for three days PREDNISONE 20 MG TAB 477677 PREDNISONE Inactive NIFEDIPINE ER 30 MG ORAL [id number] 1 daily NIFEDIPINE ER 30 MG ORAL [id number] NIFEDIPINE Inactive AMLODIPINE BESYLATE 5 MG TABS 1 tablet by mouth daily AMLODIPINE BESYLATE 5 MG TABS 570093 AMLODIPINE BESYLATE Inactive AZITHROMYCIN 250 MG TABS 2 po qd x 1 day, then 1 po qd x 4 days AZITHROMYCIN 250 MG TABS 3450673 AZITHROMYCIN Inactive AZITHROMYCIN 250 MG TABS 2 po qd x 1 day, then 1 po qd x 4 days AZITHROMYCIN 250 MG TABS 9705524 AZITHROMYCIN Inactive PREDNISONE 20 MG TAB 2 po qd x 5 days PREDNISONE 20 MG TAB 263516 PREDNISONE Inactive Vital Signs Date Name Value [...] Panel - Chemistry sodium, serum 137 mmol/L 984-245 3624/01/03 urea nitrogen, blood 8 mg/dL 7-18 creatinine, serum 0.82 mg/dL 0.55-1.30 sodium, serum 140 mmol/L 318-876 0081/07/13 potassium, serum 3.2 mmol/L 3.5-5.2 chloride, serum 103 mmol/L 98-107 carbon dioxide, venous blood 26.9 mmol/L 21.0-32.0 blood glucose 93 mg/dL 65-110 calcium, serum 9.2 mg/dL 8.5-10.1 urea nitrogen, blood 13 mg/dL 7-18 creatinine, serum 0.84 mg/dL 0.60-1.30 potassium, serum 3.4 mmol/L 3.5-5.2 chloride, serum 102 mmol/L 98-107 carbon dioxide, venous blood 29.2 mmol/L 21.0-32.0 blood glucose 87 mg/dL 65-110 calcium, serum 8.5 mg/dL 8.5-10.1 Lab Report: CBC - Hematology mean corpuscular hemoglobin, RBC 32.8 pg 27.0-31.2 mean corpuscular hemoglobin concentration, RBC 34.3 G/DL % 31.8- 35.4 red blood cell distribution width 13.9 % 11.6-14.8 platelet count 182 10^3/MM^3 10*3/mm3 031-890 0052/08/08 leukocyte count, blood 5.6 10^3/MM^3 10*3/mm3 4.6-10.2 [...] 0.40 mg/dL 0.00-1.00 sodium, serum 142 mmol/L 029-149 7599/08/08 LDL cholesterol, serum 96 mg/dL 0-130 HDL [...] 10.0-20.0 Encounters Code Encounter Date Provider Facility CPT-41394 Level 4 Est. Patient 09:15:13 CDT Harinder Cr [facility] CPT-50305 Level 3 Est. Patient 11:51:58 CDT Harinder [facility] CPT-21435 Level 3 Est. Patient 11:30:05 CDT Harinder Hernandez [facility] CPT-58876 Level 4 Est. Patient 10:19:23 CDT Harinder Hernandez [facility] CPT-41795 Level 3 Est. Patient 09:58:58 CDT Harinder Cr [facility] CPT-38661 Level 3 Est. Patient 12:37:21 CDT Harinder Hernandez [facility] CPT-21960 Level 3 Est. Patient 18:37:17 CDT Harinder Cr [facility] CPT-02302 Level 4 Est. Patient 11:15:54 CDT Nettie Newberry APRN [facility] CPT-78105 Level 3 Est. Patient 16:42:24 CDT Harinder Cr [facility] CPT-68806 Level 3 Est. Patient 15:03:36 CDT Harinder Hernandez [facility] CPT-76479 Level 3 Est. Patient 15:03:20 CDT Harinder Cr [facility] CPT-14448 Level 3 Est. Patient 12:14:34 CDT Harinder Hernandez [facility] CPT-53541 Level 3 Est. Patient 13:47:15 CDT Harinder Hernandez [facility] CPT-60193 Level 3 Est. Patient 14:08:24 CDT Harinder Hernandez [facility] CPT-92317 Level 3 Est. Patient 10:07:15 CDT Harinder Cr [facility] CPT-64521 Level 3 Est. Patient 10:06:59 CDT Harinder [facility] CPT-72121 Level 3 Est. Patient 15:53:29 CDT Jae Morgan MD [facility] CPT-00488 Level 3 Est. Patient 17:19:04 CDT Harinder Cr [facility] CPT-27408 Level 3 Est. Patient 11:13:01 CDT Harinder Hernandez [facility] CPT-81463 Level 3 Est. Patient 09:03:58 CDT Harinder Hernandez [facility] CPT-56929 Level 3 Est. 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 Patient 09:35:49 MACHINE MAINTENANCE SUPERVISOR Harinder Hernandez [facility] CPT-22405 Level 3 Est. Patient 09:29:37 MACHINE MAINTENANCE SUPERVISOR Harinder Cr [facility] CPT-99913 Level 3 Est. Patient 15:51:07 CDT Harinder Hernandez [facility] CPT-57073 Level 3 Est. Patient 18:13:13 CDT Harinder Cr [facility] CPT-32889 Level 3 Est. Patient 10:44:19 CDT Harinder Cr [facility] CPT-10835 Level 4 Est. Patient 10:07:19 MACHINE MAINTENANCE SUPERVISOR Harinder Cr [facility] CPT-07960 Level 3 Est. Patient 15:59:32 MACHINE MAINTENANCE SUPERVISOR Harinder Cr [facility] Procedures Code Procedure Name Date Entry Date Standard Description CPT-08222 Port a cath flush 13:46:05 CDT CPT-34132 Hip, complete, 2-3 views - XRAY USE ONLY 10:28:40 CDT CPT-10361 BMP - LAB USE ONLY 16:45:09 MACHINE MAINTENANCE SUPERVISOR CPT-33736 Port a cath flush 12:00:13 MACHINE MAINTENANCE SUPERVISOR CPT-TCMM Transitional Care Mgmt-Moderate 11:20:16 MACHINE MAINTENANCE SUPERVISOR CPT-86536 First Vx - Ix admin for Medicare patients 17:35:15 CDT CPT-05385 Fluzone Preservative Free Intramuscular Suspension 17:35 :15 CDT CPT-38587 Microalbumin - LAB USE ONLY 11:52:05 CDT CPT-TCMM Transitional Care Mgmt-Moderate 11:33:57 CDT CPT-56300 No Charge Offi Visit 14:11:29 CDT CPT-74082 Magnesium - LAB USE ONLY 10:45:44 CDT CPT-01065 Lipid - LAB USE ONLY 10:45:44 CDT CPT-62668 CBC - LAB USE ONLY 10:45:44 CDT CPT-82437 Venipuncture Draw Fee 10:45:43 CDT CPT-50900 Venipuncture Draw Fee 18:21:27 CDT CPT-JTINJ Asp/Joint Injection 18:38:04 CDT CPT-39310 Immunization Each Additional Inj 17:38:04 CDT CPT-77806 Immunization Single Admin 17:38:04 CDT CPT-18905 Prevnar 13 17:38:04 CDT CPT-05851 Fluzone Quadrivalent preservative free (>=3yrs.) 17:38: 04 CDT CPT-18412 No Charge Offi Visit 11:14:03 CDT CPT-56861 Chest 2V Frontal and Lat 14:00:18 CDT CPT-OV Office Visit 16:10:28 CDT CPT-JTINJ Asp/Joint Injection 09:03:57 CDT CPT-Cryo Cryotherapy 09:35:49 MACHINE MAINTENANCE SUPERVISOR CPT-JTINJ Asp/Joint Injection 09:34:45 MACHINE MAINTENANCE SUPERVISOR CPT-J2930 Solu Medrol 125 mg (Methyl Prednisolone Sodium Succinate) 20:37:27 CDT CPT-86238 Abx/Therapy Injection 20:37:27 CDT CPT-27386 Port a cath flush 08:15:51 CDT CPT-10359 Port a cath flush 09:54:16 CDT CPT-20080 Port a cath flush 09:38:02 CDT CPT-56189 Port a cath flush 11:00:27 MACHINE MAINTENANCE SUPERVISOR
--- OUTSIDE RECORDS SUMMARY | 2017-12-29 01:43 | XMS REPORT | Clinical Summary ---
Author Author Admin, QIE Organization [facility] Andre Phillipe Address Unknown Phone Unavailable Allergies, Adverse Reactions, [...] DO 10/02 Clostridium difficile colitis ICD-008.45 Inactive Hairnder Hernandez DO Abdominal pain, right lower quadrant [...] 1 tablet by mouth daily POTASSIUM CHLORIDE 61918437171 Active Ciera Pimentel Active ALBUTEROL SULFATE 0.083 % NEBU SOLN 1 vial neb q 4hrs PRN Wheezing ALBUTEROL SULFATE 86080032813 Active Harinder Hernandez Active FLOVENT HFA 110 MCG/ACT AERO 2 puffs inhaled b.i.d. FLUTICASONE PROPIONATE HFA 37502208522 Active Harinder Shaye Hernandez DO Active POTASSIUM CHLORIDE CR 10 MEQ CPCR 1 capsule by mouth daily POTASSIUM CHLORIDE 08310036914 Active Harinder Hernandez Active EPIPEN 2-BRUNA 0.3 MG/0.3ML INJ SOAJ 1 INJ NEEDED EPINEPHRINE 18443062513 Active Harinder Hernandez DO Active PREDNISONE 20 MG TAB 1 tab twice daily for 3 day, then one daily for three days PREDNISONE 31536536641 No Longer Active Harinder Hernandez DO Active PREDNISONE 20 MG TAB 1 tablet twice daily for 2 days, then 1 tablet once daily for 2 days PREDNISONE 92024864388 No Longer Active Harinder Hernandez DO Active ASMANEX 120 METERED DOSES 220 MCG/INH INH AEPB 2 puffs orally twice daily MOMETASONE FUROATE 51754608512 Active Jeri Sosa RPT,RMA Active NIFEDIPINE ER 30 MG ORAL [id number] 1 daily NIFEDIPINE 80402230830 Active Harinder Hernandez DO Active TOPIRAMATE 25 MG TABS 1 tab po BID TOPIRAMATE 32550898303 No Longer Active Nettie Newberry APRN Active AMLODIPINE BESYLATE 5 MG ORAL TABS Take 1 tab po daily AMLODIPINE BESYLATE 89582224798 No Longer Active Nettie Newberry APRN Active MECLIZINE HCL 25 MG TAB 1 tablet three times daily for 3 days, then 1/2 tab three times daily for 3 days. MECLIZINE HCL 61043977165 No Longer Active Nettieog Newberry APRN Active AMITRIPTYLINE HCL 25 MG ORAL TABS 1 q hs prn AMITRIPTYLINE HCL 28055008765 No Longer Active Nettieog Newberry APRN Active DILAUDID 2 MG ORAL TABS Take 1/2 tab po every 4 hours as needed for pain 2014 HYDROMORPHONE HCL 70241220726 No Longer Active Nettie Newberry APRN Active CLOPIDOGREL BISULFATE 75 MG ORAL TABS 1 tab by mouth once daily CLOPIDOGREL BISULFATE 42232591830 Active Tawnya Pardo MA Active ATORVASTATIN CALCIUM 10 MG ORAL TABS 1 at bedtime ATORVASTATIN CALCIUM 72112061281 Active Tawnya Pardo MA Active LOVASTATIN 40 MG ORAL TABS Take 1 tab po every hs LOVASTATIN 29875023711 No Longer Active Harinder Hernandez DO Active PREDNISONE 20 MG TAB 2 tabs daily for 4 days, 1 tab daily for 4 days, 1/2 tab daily for 4 days PREDNISONE 59851927221 No Longer Active Harinder Hernandez DO Active LEVAQUIN 500 MG ORAL TABS Take 1 tab po daily x 8 days LEVOFLOXACIN 20486238814 No Longer Active Harinder Hernandez DO Active VENTOLIN HFA 108 (90 BASE) MCG/ACT AERS 2 -4 puffs four times a day PRN 2013 ALBUTEROL SULFATE 28502177589 No Longer Active Jeri Sosa RPT,RMA Active ACEBUTOLOL HCL 200 MG CAPS 1 cap in the morning and 2 caps in the evening ACEBUTOLOL HCL 74372152900 No Longer Active Harinder Hernandez DO Active CEFDINIR 300 MG ORAL CAPS take 1 cap po bid x 10 days CEFDINIR 18319420987 No Longer Active Harinder Hernandez DO Active LOVASTATIN 40 MG TABS 1 pill by mouth nightly for cholesterol LOVASTATIN 31302489236 No Longer Active Nettie Rohith MAHENDRA Active NITROSTAT 0.4 MG SUBL 1 tab under tongueas needed for chest pain ( may take 3 total, 5 min apart, then call 911) NITROGLYCERIN 16525924435 No Longer Active Nettie Rohith MAHENDRA Active POTASSIUM CHLORIDE CR 10 MEQ CPCR 1 capsule by mouth daily 02/14 POTASSIUM CHLORIDE 05067782894 No [facility] Active TESSALON PERLES 100 MG CAP 1 to 2 tablets by mouth 3 times daily as needed for cough BENZONATATE 20804289056 No Longer Active Nettie Newberry APRN Active THEOPHYLLINE ER 200 MG ORAL SE37S-DAY Take 1 tab every 12 hours THEOPHYLLINE 00109593775 Active Tawnya Pardo MA Active PREDNISONE 20 MG TAB 2 po qd x 5 days PREDNISONE 46257993283 No Longer Active Jae Morgan MD Active AZITHROMYCIN 250 MG TABS 2 po qd x 1 day, then 1 po qd x 4 days AZITHROMYCIN 70038817195 No Longer Active Jae Morgan MD Active PREDNISONE 20 MG TAB 1 tab twice daily for 3 day, then one daily for three days PREDNISONE 93930777532 No Longer Active Jae Morgan MD Active SINGULAIR 10 MG TABS 1 pill by mouth every evening for breathing. MONTELUKAST SODIUM 06678339502 Active Tawnya Pardo MA Active TYLENOL 325 MG TAB 3 by mouth q4h as needed ACETAMINOPHEN 97462251084 Active Harinder Hernandez DO Active POTASSIUM CHLORIDE ER 10 MEQ CR-TABS take 1 tab po daily POTASSIUM CHLORIDE 92093863615 No Longer Active Harinder Hernandez DO Active PREDNISONE 20 MG TAB 1 TID x 2 days, then 1 BID x 3 days, then 1 Daily x 3 days, then stop PREDNISONE 68264694965 No Longer Active John Montemayor APRN Active LEVAQUIN 500 MG TAB 1 tablet by mouth daily LEVOFLOXACIN 33396804430 No Longer Active John Montemayor MAIL MACHINE OPERATOR Active NEURONTIN 300 MG CAP 1 cap by mouth three times daily for restless leg 06/22 GABAPENTIN 26500698929 No Longer Active Harinder Hernandez DO Active BENZONATATE 100 MG CAPS 1 cap po TID PRN BENZONATATE 94863395757 No Longer Active Harinder Hernandez DO Active MONTELUKAST SODIUM 10 MG TABS 1 tab po in the evening MONTELUKAST SODIUM 14814415367 No Longer Active Harinder Hernandez DO Active MUPIROCIN 2 % OINT apply to affected area BID x 14 days MUPIROCIN 23044786283 No Longer Active Harinder Hernandez DO Active TYLENOL EXTRA STRENGTH 500 MG TABS as needed ACETAMINOPHEN 95769767404 No Longer Active Harinder Hernandez DO Active PREDNISONE 10 MG TABS 1 tab po daily PREDNISONE 75957213512 No Longer Active Harinder Hernandez DO Active PREDNISONE 20 MG TAB 2 tabs daily for 4 days, 1 tab daily for 4 days, 1/2 tab daily for 4 days PREDNISONE 72403472881 No Longer Active Harinder Hernandez DO Active AZITHROMYCIN 250 MG TABS 2 po qd x 1 day, then 1 po qd x 4 days AZITHROMYCIN 49835753828 No Longer Active Harinder Hernandez DO Active PREDNISONE 20 MG TAB 3 tabs today, then 1 tab twice daily for 3 day, then one daily for three days PREDNISONE 61695882372 No Longer Active Harinder Hernandez DO Active NIFEDIAC CC 30 MG [id number] 1 tablet daily for raynaud's syndrome NIFEDIPINE 49048569549 No Longer Active Tawnya Pardo MA Active AMBIEN 10 MG TAB 1/2 tab by mouth at bedtime as needed for sleep ZOLPIDEM TARTRATE 93739368697 Active Harinder Hernandez DO Active CLONAZEPAM 1 MG TABS 1 tablet at bedtime for insomnia and restless legs 09/14 CLONAZEPAM 36877683264 Active Harinder Hernandez DO Active CLONAZEPAM 0.5 MG TABS 1 tab po daily CLONAZEPAM 54822989781 No Longer Active Harinder Hernandez DO Active PREDNISONE 10 MG TAB 1 tablet daily for COPD PREDNISONE 51990945599 Active Tawnya Pardo MA Active PROAIR HFA 108 (90 BASE) MCG/ACT AERS 2 puffs four times a day as needed 2012 ALBUTEROL SULFATE 67029400721 Active Tawnya Parod MA Active FLOVENT HFA 110 MCG/ACT AERO 2 puffs inhaled b.i.d. FLUTICASONE PROPIONATE HFA 27474130803 Active Tawnya Parod MA Active ACIPHEX 20 MG TBEC 1 tab po daily RABEPRAZOLE SODIUM 47269752605 Active Kaylah Newberry Active CLONAZEPAM 0.5 MG TABS 1 tab po daily CLONAZEPAM 0.5 MG TABS 275197 CLONAZEPAM Inactive PREDNISONE 20 MG TAB 3 tabs today, then 1 tab twice daily for 3 day, then one daily for three days PREDNISONE 20 MG TAB 379769 PREDNISONE Inactive PREDNISONE 20 MG TAB 2 tabs daily for 4 days, 1 tab daily for 4 days, 1/2 tab daily for 4 days PREDNISONE 20 MG TAB 920856 PREDNISONE Inactive PREDNISONE 10 MG TABS 1 tab po daily PREDNISONE 10 MG TABS 952795 PREDNISONE Inactive TYLENOL EXTRA STRENGTH 500 MG TABS as needed TYLENOL EXTRA STRENGTH 500 MG TABS 567318 ACETAMINOPHEN Inactive MUPIROCIN 2 % OINT apply to affected area BID x 14 days MUPIROCIN 2 % OINT 505375 MUPIROCIN Inactive MONTELUKAST SODIUM 10 MG TABS 1 tab po in the evening MONTELUKAST SODIUM 10 MG TABS 20010818 MONTELUKAST SODIUM Inactive BENZONATATE 100 MG CAPS 1 cap po TID PRN BENZONATATE 100 MG CAPS 451003 BENZONATATE Inactive NEURONTIN 300 MG CAP 1 cap by mouth three times daily for restless leg 06/22 NEURONTIN 300 MG CAP 526943 GABAPENTIN Inactive LEVAQUIN 500 MG TAB 1 tablet by mouth daily LEVAQUIN 500 MG TAB 521020 LEVOFLOXACIN Inactive PREDNISONE 20 MG TAB 1 TID x 2 days, then 1 BID x 3 days, then 1 Daily x 3 days, then stop PREDNISONE 20 MG TAB 465801 PREDNISONE Inactive POTASSIUM CHLORIDE ER 10 MEQ CR-TABS take 1 tab po daily POTASSIUM CHLORIDE ER 10 MEQ CR-TABS POTASSIUM CHLORIDE Inactive PREDNISONE 20 MG TAB 1 tab twice daily for 3 day, then one daily for three days PREDNISONE 20 MG TAB 159835 PREDNISONE Inactive TESSALON PERLES 100 MG CAP 1 to 2 tablets by mouth 3 times daily as needed for cough TESSALON PERLES 100 MG CAP 768695 BENZONATATE Inactive POTASSIUM CHLORIDE CR 10 MEQ CPCR 1 capsule by mouth daily 02/14 POTASSIUM CHLORIDE CR 10 MEQ CPCR POTASSIUM CHLORIDE Inactive NITROSTAT 0.4 MG SUBL 1 tab under tongueas needed for chest pain ( may take 3 total, 5 min apart, then call 911) NITROSTAT 0.4 MG SUBL 250180 NITROGLYCERIN Inactive LOVASTATIN 40 MG TABS 1 pill by mouth nightly for cholesterol LOVASTATIN 40 MG TABS 724035 LOVASTATIN Inactive CEFDINIR 300 MG ORAL CAPS take 1 cap po bid x 10 days CEFDINIR 300 MG ORAL CAPS 244111 CEFDINIR Inactive ACEBUTOLOL HCL 200 MG CAPS 1 cap in the morning and 2 caps in the evening ACEBUTOLOL HCL 200 MG CAPS 195656 ACEBUTOLOL HCL Inactive VENTOLIN HFA 108 (90 BASE) MCG/ACT AERS 2 -4 puffs four times a day PRN 2013 VENTOLIN HFA 108 (90 BASE) MCG/ACT AERS ALBUTEROL SULFATE Inactive LEVAQUIN 500 MG ORAL TABS Take 1 tab po daily x 8 days LEVAQUIN 500 MG ORAL TABS 071434 LEVOFLOXACIN Inactive PREDNISONE 20 MG TAB 2 tabs daily for 4 days, 1 tab daily for 4 days, 1/2 tab daily for 4 days PREDNISONE 20 MG TAB 463523 PREDNISONE Inactive LOVASTATIN 40 MG ORAL TABS Take 1 tab po every hs LOVASTATIN 40 MG ORAL TABS 612999 LOVASTATIN Inactive DILAUDID 2 MG ORAL TABS Take 1/2 tab po every 4 hours as needed for pain 2014 DILAUDID 2 MG ORAL TABS 848519 HYDROMORPHONE HCL Inactive AMITRIPTYLINE HCL 25 MG ORAL TABS 1 q hs prn AMITRIPTYLINE HCL 25 MG ORAL TABS 075480 AMITRIPTYLINE HCL Inactive MECLIZINE HCL 25 MG TAB 1 tablet three times daily for 3 days, then 1/2 tab three times daily for 3 days. MECLIZINE HCL 25 MG TAB 395268 MECLIZINE HCL Inactive AMLODIPINE BESYLATE 5 MG ORAL TABS Take 1 tab po daily AMLODIPINE BESYLATE 5 MG ORAL TABS 202832 AMLODIPINE BESYLATE Inactive TOPIRAMATE 25 MG TABS 1 tab po BID TOPIRAMATE 25 MG TABS 091847 TOPIRAMATE Inactive PREDNISONE 20 MG TAB 1 tablet twice daily for 2 days, then 1 tablet once daily for 2 days PREDNISONE 20 MG TAB 733766 PREDNISONE Inactive PREDNISONE 20 MG TAB 1 tab twice daily for 3 day, then one daily for three days PREDNISONE 20 MG TAB 286094 PREDNISONE Inactive AZITHROMYCIN 250 MG TABS 2 po qd x 1 day, then 1 po qd x 4 days AZITHROMYCIN 250 MG TABS 6576181 AZITHROMYCIN Inactive AZITHROMYCIN 250 MG TABS 2 po qd x 1 day, then 1 po qd x 4 days AZITHROMYCIN 250 MG TABS 4967194 AZITHROMYCIN Inactive PREDNISONE 20 MG TAB 2 po qd x 5 days PREDNISONE 20 MG TAB 837820 PREDNISONE Inactive Vital Signs Date Name Value [...] Panel - Chemistry sodium, serum 137 mmol/L 274-892 8974/01/03 potassium, serum 3.4 mmol/L 3.5-5.2 chloride, serum [...] Magnesium - Chemistry cholesterol, serum 180 mg/dL 441-238 3658/08/08 triglyceride, serum, fasting 92 mg/dL 30-200 HDL cholesterol, serum 66 mg/dL 32-96 LDL cholesterol, serum 96 mg/dL 0-130 sodium, serum 142 mmol/L 616-856 1322/08/08 carbon dioxide, venous blood 27.4 mmol/L 21.0-32.0 [...] 10.0-20.0 Encounters Code Encounter Date Provider Facility CPT-42708 Level 3 Est. Patient 09:58:[address] [facility] CPT-30914 Level 3 Est. Patient 12:37:[address] [facility] CPT-27280 Level 3 Est. Patient 18:37:[address] [facility] CPT-11184 Level 4 Est. Patient 11:15:54 CDT Nettie Newberry MAIL MACHINE OPERATOR [facility] CPT-81429 Level 3 Est. Patient 16:42:[address] [facility] CPT-67816 Level 3 Est. Patient 15:03:[address] [facility] CPT-69310 Level 3 Est. Patient 15:03:[address] [facility] CPT-19229 Level 3 Est. Patient 12:14:34 CDT Harinder Cr [facility] CPT-36899 Level 3 Est. Patient 13:47:15 CDT Harinder Hernandez [facility] CPT-76306 Level 3 Est. Patient 14:08:24 CDT Harinder Hernandez [facility] CPT-86273 Level 3 Est. Patient 10:07:15 CDT Harinder Hernandez [facility] CPT-37025 Level 3 Est. Patient 10:06:59 CDT Harinder Hernandez [facility] CPT-72219 Level 3 Est. Patient 15:53:29 CDT Jae Morgan [facility] CPT-11790 Level 3 Est. Patient 17:19:04 CDT Harinder Hernandez [facility] CPT-51300 Level 3 Est. Patient 11:13:01 CDT Harinder Hernandez [facility] CPT-94263 Level 3 Est. Patient 09:03:58 CDT Harinder Hernandez [facility] CPT-06864 Level 3 Est. Patient 14:46:45 GAS CUTTER Harinder Hernandez [facility] CPT-05949 Level 3 Est. Patient 09:35:49 GAS CUTTER Harinder Hernandez [facility] CPT-04720 Level 3 Est. Patient 09:29:37 GAS CUTTER Harinder Hernandez [facility] CPT-03214 Level 3 Est. Patient 15:51:07 CDT Harinder Hernandez [facility] CPT-21697 Level 3 Est. Patient 18:13:13 CDT Harinder Hernandez [facility] CPT-44908 Level 3 Est. Patient 10:44:19 CDT Harinder Hernandez [facility] CPT-08024 Level 4 Est. Patient 10:07:19 GAS CUTTER Harinder Hernandez [facility] CPT-08950 Level 3 Est. Patient 15:59:32 GAS CUTTER Harinder W David DO [facility] Procedures Code Procedure Name Date Entry Date Standard Description CPT-61424 BMP - LAB USE ONLY 16:45:09 GAS CUTTER CPT-76614 Port a cath flush 12:00:13 GAS CUTTER CPT-TCMM Transitional Care Mgmt-Moderate 11:20:16 GAS CUTTER CPT-84101 First Vx - Ix admin for Medicare patients 17:35:15 CDT CPT-63242 Fluzone Preservative Free Intramuscular Suspension 17:35 :15 CDT CPT-43446 Microalbumin - LAB USE ONLY 11:52:05 CDT CPT-TCMM Transitional Care Mgmt-Moderate 11:33:57 CDT CPT-17155 No Charge Offi Visit 14:11:29 CDT CPT-01277 Magnesium - LAB USE ONLY 10:45:44 CDT CPT-52328 Lipid - LAB USE ONLY 10:45:44 CDT CPT-40562 CBC - LAB USE ONLY 10:45:44 CDT CPT-98401 Venipuncture Draw Fee 10:45:43 CDT CPT-28686 Venipuncture Draw Fee 18:21:27 CDT CPT-JTINJ Asp/Joint Injection 18:38:04 CDT CPT-31199 Immunization Each Additional Inj 17:38:04 CDT CPT-52677 Immunization Single Admin 17:38:04 CDT CPT-86171 Prevnar 13 17:38:04 CDT CPT-51874 Fluzone Quadrivalent preservative free (>=3yrs.) 17:38: 04 CDT CPT-83979 No Charge Offi Visit 11:14:03 CDT CPT-76648 Chest 2V Frontal and Lat 14:00:18 CDT CPT-OV Office Visit 16:10:28 CDT CPT-JTINJ Asp/Joint Injection 09:03:57 CDT CPT-Cryo Cryotherapy 09:35:49 GAS CUTTER CPT-JTINJ Asp/Joint Injection 09:34:45 GAS CUTTER CPT-J2930 Solu Medrol 125 mg (Methyl Prednisolone Sodium Succinate) 20:37:27 CDT CPT-86352 Abx/Therapy Injection 20:37:27 CDT CPT-71093 Port a cath flush 08:15:51 CDT CPT-34631 Port a cath flush 09:54:16 CDT CPT-48741 Port a cath flush 09:38:02 CDT CPT-03561 Port a cath flush 11:00:27 GAS CUTTER
--- OUTSIDE RECORDS SUMMARY | 2017-12-29 01:44 | XMS REPORT | Clinical Summary ---
Author Author Admin, QIE Organization [facility] Address Unknown Phone Unavailable Allergies, Adverse Reactions, [...] 1 tab po q day POTASSIUM CHLORIDE 59472142546 Active Harinder Hernandez DO Active POTASSIUM CHLORIDE CR 10 MEQ CPCR 1 capsule BID POTASSIUM CHLORIDE 42866743432 No Longer Active Kortney Mccain Active LASIX 20 MG TAB 1 tablet by mouth every morning FUROSEMIDE 48124701610 No Longer Active Kortney Mccain Active SPIRONOLACTONE 25 MG TAB 1 tablet by mouth daily SPIRONOLACTONE 92591438354 Active Ciera Pimentel Active FLUOXETINE HCL 10 MG ORAL CAPS 1 po qd for depression/anxiety FLUOXETINE HCL 85374555743 Active Harinder Hernandez DO Active VOLTAREN 1 % GEL apply q 6-8 hour to left arm as needed for pain DICLOFENAC SODIUM 58972399134 Prince Hernandez DO Active ALBUTEROL SULFATE 0.083 % NEBU SOLN 1 vial neb q 4hrs for severe asthma. 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 FLUTICASONE PROPIONATE HFA 08841083982 Active Harinder Hernandez DO Active EPIPEN 2-BRUNA 0.3 MG/0.3ML INJ SOAJ 1 INJ NEEDED EPINEPHRINE 57200033932 Active Harinder Hernandez DO Active PREDNISONE 20 MG TAB 1 tab twice daily for 3 day, then one daily for three days PREDNISONE 48524553897 No Longer Active Harinder Hernandez DO Active PREDNISONE 20 MG TAB 1 tablet twice daily for 2 days, then 1 tablet once daily for 2 days PREDNISONE 25914894772 No Longer Active Harinder Hernandez DO Active ASMANEX 120 METERED DOSES 220 MCG/INH INH AEPB 2 puffs orally twice daily MOMETASONE FUROATE 27481633555 Active Jeri Sosa LPN Active TOPIRAMATE 25 MG TABS 1 tab po BID TOPIRAMATE 93899965824 No Longer Active Nettie Newberry APRN Active AMLODIPINE BESYLATE 5 MG ORAL TABS Take 1 tab po daily AMLODIPINE BESYLATE 98819888801 No Longer Active Nettie Newberry APRN Active MECLIZINE HCL 25 MG TAB 1 tablet three times daily for 3 days, then 1/2 tab three times daily for 3 days. MECLIZINE HCL 51865208971 No Longer Active Nettieog Newberry APRN Active AMITRIPTYLINE HCL 25 MG ORAL TABS 1 q hs prn AMITRIPTYLINE HCL 33309556266 No Longer Active Nettieog Newberry APRN Active DILAUDID 2 MG ORAL TABS Take 1/2 tab po every 4 hours as needed for pain 2014 HYDROMORPHONE HCL 92222939325 No Longer Active Nettieog Newberry APRN Active CLOPIDOGREL BISULFATE 75 MG ORAL TABS 1 tab by mouth once daily CLOPIDOGREL BISULFATE 42122273454 Active Harinder Hernandez DO Active ATORVASTATIN CALCIUM 10 MG ORAL TABS 1 at bedtime ATORVASTATIN CALCIUM 63536521092 Active Harinder Hernandez DO Active LOVASTATIN 40 MG ORAL TABS Take 1 tab po every hs LOVASTATIN 36879604776 No Longer Active Harinder Hernandez DO Active PREDNISONE 20 MG TAB 2 tabs daily for 4 days, 1 tab daily for 4 days, 1/2 tab daily for 4 days PREDNISONE 04519225715 No Longer Active Harinder Hernandez DO Active LEVAQUIN 500 MG ORAL TABS Take 1 tab po daily x 8 days LEVOFLOXACIN 66713408142 No Longer Active Harinder Hernandez DO Active VENTOLIN HFA 108 (90 BASE) MCG/ACT AERS 2 -4 puffs four times a day PRN 2013 ALBUTEROL SULFATE 93848348298 No Longer Active Jeri Sosa LPN Active ACEBUTOLOL HCL 200 MG CAPS 1 cap in the morning and 2 caps in the evening ACEBUTOLOL HCL 68269730763 No Longer Active Harinder Hernandez DO Active CEFDINIR 300 MG ORAL CAPS take 1 cap po bid x 10 days CEFDINIR 12420085377 No Longer Active Harinder Hernandez DO Active LOVASTATIN 40 MG TABS 1 pill by mouth nightly for cholesterol LOVASTATIN 50840911011 No Longer Active Nettie Rohith MAHENDRA Active NITROSTAT 0.4 MG SUBL 1 tab under tongueas needed for chest pain ( may take 3 total, 5 min apart, then call 911) NITROGLYCERIN 65863999042 No Longer Active Nettie Newberry MAHENDRA Active POTASSIUM CHLORIDE CR 10 MEQ CPCR 1 capsule by mouth daily 02/14 POTASSIUM CHLORIDE 05227179883 [facility] TESSALON PERLES 100 MG CAP 1 to 2 tablets by mouth 3 times daily as needed for cough BENZONATATE 34154606348 No Longer Active Nettie Rohith MAHENDRA Active THEOPHYLLINE ER 200 MG ORAL [id number] Take 1 tab every 12 hours THEOPHYLLINE 07935707057 Active Harinder Hernandez DO Active PREDNISONE 20 MG TAB 2 po qd x 5 days PREDNISONE 11889651259 No Longer Active Jae Morgan MD Active AZITHROMYCIN 250 MG TABS 2 po qd x 1 day, then 1 po qd x 4 days AZITHROMYCIN 45845054199 No Longer Active Jae Morgan MD Active PREDNISONE 20 MG TAB 1 tab twice daily for 3 day, then one daily for three days PREDNISONE 19716675877 No Longer Active Jae Morgan MD Active SINGULAIR 10 MG TABS 1 pill by mouth every evening for breathing. MONTELUKAST SODIUM 13470470091 Active Tawnya Pardo MA Active TYLENOL 325 MG TAB 3 by mouth q4h as needed ACETAMINOPHEN 41572282067 Active Harinder Hernandez DO Active POTASSIUM CHLORIDE ER 10 MEQ CR-TABS take 1 tab po daily POTASSIUM CHLORIDE 25180366392 No Longer Active Harinder Hernandez DO Active PREDNISONE 20 MG TAB 1 TID x 2 days, then 1 BID x 3 days, then 1 Daily x 3 days, then stop PREDNISONE 98717300914 No Longer Active John Montemayor APRN Active LEVAQUIN 500 MG TAB 1 tablet by mouth daily LEVOFLOXACIN 85089440406 No Longer Active John Montemayor EMPLOYMENT REPRESENTATIVE Active NEURONTIN 300 MG CAP 1 cap by mouth three times daily for restless leg 06/22 GABAPENTIN 44500395951 No Longer Active Harinder Hernandez DO Active BENZONATATE 100 MG CAPS 1 cap po TID PRN BENZONATATE 12423159250 No Longer Active Harinder Hernandez DO Active MONTELUKAST SODIUM 10 MG TABS 1 tab po in the evening MONTELUKAST SODIUM 11279846528 No Longer Active Harinder Hernandez DO Active MUPIROCIN 2 % OINT apply to affected area BID x 14 days MUPIROCIN 65729668457 No Longer Active Harinder Heranndez DO Active TYLENOL EXTRA STRENGTH 500 MG TABS as needed ACETAMINOPHEN 33008463405 No Longer Active Harinder Hernandez DO Active PREDNISONE 10 MG TABS 1 tab po daily PREDNISONE 68373541048 No Longer Active Harinder Hernandez DO Active PREDNISONE 20 MG TAB 2 tabs daily for 4 days, 1 tab daily for 4 days, 1/2 tab daily for 4 days PREDNISONE 32574469566 No Longer Active Harinder Hernandez DO Active AZITHROMYCIN 250 MG TABS 2 po qd x 1 day, then 1 po qd x 4 days AZITHROMYCIN 61163436170 No Longer Active Harinder Hernandez DO Active PREDNISONE 20 MG TAB 3 tabs today, then 1 tab twice daily for 3 day, then one daily for three days PREDNISONE 11954848427 No Longer Active Harinder Hernandez DO Active NIFEDIAC CC 30 MG [id number] 1 tablet daily for raynaud's syndrome NIFEDIPINE 10553960599 No Longer Active Tawnya Pardo MA Active AMBIEN 10 MG TAB 1/2 tab by mouth at bedtime as needed for sleep ZOLPIDEM TARTRATE 67851070514 Active Harinder Hernandez DO Active CLONAZEPAM 1 MG TABS 1 tablet at bedtime for insomnia and restless legs 09/14 CLONAZEPAM 34690036152 Active Harinder Hernandez DO Active CLONAZEPAM 0.5 MG TABS 1 tab po daily CLONAZEPAM 71969700729 No Longer Active Hrainder Hernandez DO Active PREDNISONE 10 MG TAB 1 tablet daily for COPD PREDNISONE 20805724633 Active Harinder Hernandez DO Active PROAIR HFA 108 (90 BASE) MCG/ACT AERS 2 puffs four times a day as needed 2012 ALBUTEROL SULFATE 16638778733 Active Harinder Hernandez DO Active FLOVENT HFA 110 MCG/ACT AERO 2 puffs inhaled b.i.d. FLUTICASONE PROPIONATE HFA 82959595053 Active Kortney Mccain Active ACIPHEX 20 MG TBEC 1 tab po daily RABEPRAZOLE SODIUM 69969098770 Active Kaylah Newberry Active CLONAZEPAM 0.5 MG TABS 1 tab po daily CLONAZEPAM 0.5 MG TABS 395582 CLONAZEPAM Inactive PREDNISONE 20 MG TAB 3 tabs today, then 1 tab twice daily for 3 day, then one daily for three days PREDNISONE 20 MG TAB 151245 PREDNISONE Inactive PREDNISONE 20 MG TAB 2 tabs daily for 4 days, 1 tab daily for 4 days, 1/2 tab daily for 4 days PREDNISONE 20 MG TAB 729149 PREDNISONE Inactive PREDNISONE 10 MG TABS 1 tab po daily PREDNISONE 10 MG TABS 762704 PREDNISONE Inactive TYLENOL EXTRA STRENGTH 500 MG TABS as needed TYLENOL EXTRA STRENGTH 500 MG TABS 014263 ACETAMINOPHEN Inactive MUPIROCIN 2 % OINT apply to affected area BID x 14 days MUPIROCIN 2 % OINT 187548 MUPIROCIN Inactive MONTELUKAST SODIUM 10 MG TABS 1 tab po in the evening MONTELUKAST SODIUM 10 MG TABS 20010818 MONTELUKAST SODIUM Inactive BENZONATATE 100 MG CAPS 1 cap po TID PRN BENZONATATE 100 MG CAPS 446944 BENZONATATE Inactive NEURONTIN 300 MG CAP 1 cap by mouth three times daily for restless leg 06/22 NEURONTIN 300 MG CAP 640848 GABAPENTIN Inactive LEVAQUIN 500 MG TAB 1 tablet by mouth daily LEVAQUIN 500 MG TAB 684221 LEVOFLOXACIN Inactive PREDNISONE 20 MG TAB 1 TID x 2 days, then 1 BID x 3 days, then 1 Daily x 3 days, then stop PREDNISONE 20 MG TAB 394894 PREDNISONE Inactive POTASSIUM CHLORIDE ER 10 MEQ CR-TABS take 1 tab po daily POTASSIUM CHLORIDE ER 10 MEQ CR-TABS POTASSIUM CHLORIDE Inactive PREDNISONE 20 MG TAB 1 tab twice daily for 3 day, then one daily for three days PREDNISONE 20 MG TAB 953277 PREDNISONE Inactive TESSALON PERLES 100 MG CAP 1 to 2 tablets by mouth 3 times daily as needed for cough TESSALON PERLES 100 MG CAP 679600 BENZONATATE Inactive POTASSIUM CHLORIDE CR 10 MEQ CPCR 1 capsule by mouth daily 02/14 POTASSIUM CHLORIDE CR 10 MEQ CPCR POTASSIUM CHLORIDE Inactive NITROSTAT 0.4 MG SUBL 1 tab under tongueas needed for chest pain ( may take 3 total, 5 min apart, then call 911) NITROSTAT 0.4 MG SUBL 404505 NITROGLYCERIN Inactive LOVASTATIN 40 MG TABS 1 pill by mouth nightly for cholesterol LOVASTATIN 40 MG TABS 419835 LOVASTATIN Inactive CEFDINIR 300 MG ORAL CAPS take 1 cap po bid x 10 days CEFDINIR 300 MG ORAL CAPS 013780 CEFDINIR Inactive ACEBUTOLOL HCL 200 MG CAPS 1 cap in the morning and 2 caps in the evening ACEBUTOLOL HCL 200 MG CAPS 792311 ACEBUTOLOL HCL Inactive VENTOLIN HFA 108 (90 BASE) MCG/ACT AERS 2 -4 puffs four times a day PRN 2013 VENTOLIN HFA 108 (90 BASE) MCG/ACT AERS ALBUTEROL SULFATE Inactive LEVAQUIN 500 MG ORAL TABS Take 1 tab po daily x 8 days LEVAQUIN 500 MG ORAL TABS 021236 LEVOFLOXACIN Inactive PREDNISONE 20 MG TAB 2 tabs daily for 4 days, 1 tab daily for 4 days, 1/2 tab daily for 4 days PREDNISONE 20 MG TAB 213572 PREDNISONE Inactive LOVASTATIN 40 MG ORAL TABS Take 1 tab po every hs LOVASTATIN 40 MG ORAL TABS 875752 LOVASTATIN Inactive DILAUDID 2 MG ORAL TABS Take 1/2 tab po every 4 hours as needed for pain 2014 DILAUDID 2 MG ORAL TABS 517014 HYDROMORPHONE HCL Inactive AMITRIPTYLINE HCL 25 MG ORAL TABS 1 q hs prn AMITRIPTYLINE HCL 25 MG ORAL TABS 299255 AMITRIPTYLINE HCL Inactive MECLIZINE HCL 25 MG TAB 1 tablet three times daily for 3 days, then 1/2 tab three times daily for 3 days. MECLIZINE HCL 25 MG TAB 042634 MECLIZINE HCL Inactive AMLODIPINE BESYLATE 5 MG ORAL TABS Take 1 tab po daily AMLODIPINE BESYLATE 5 MG ORAL TABS 914601 AMLODIPINE BESYLATE Inactive TOPIRAMATE 25 MG TABS 1 tab po BID TOPIRAMATE 25 MG TABS 098369 TOPIRAMATE Inactive PREDNISONE 20 MG TAB 1 tablet twice daily for 2 days, then 1 tablet once daily for 2 days PREDNISONE 20 MG TAB 580892 PREDNISONE Inactive PREDNISONE 20 MG TAB 1 tab twice daily for 3 day, then one daily for three days PREDNISONE 20 MG TAB 311592 PREDNISONE Inactive NIFEDIPINE ER 30 MG ORAL [id number] 1 daily NIFEDIPINE ER 30 MG ORAL [id number] NIFEDIPINE Inactive AMLODIPINE BESYLATE 5 MG TABS 1 tablet by mouth daily AMLODIPINE BESYLATE 5 MG TABS 087135 AMLODIPINE BESYLATE Inactive LASIX 20 MG TAB 1 tablet by mouth every morning LASIX 20 MG TAB 235985 FUROSEMIDE Inactive POTASSIUM CHLORIDE CR 10 MEQ CPCR 1 capsule BID POTASSIUM CHLORIDE CR 10 MEQ CPCR POTASSIUM CHLORIDE Inactive AZITHROMYCIN 250 MG TABS 2 po qd x 1 day, then 1 po qd x 4 days AZITHROMYCIN 250 MG TABS 4888601 AZITHROMYCIN Inactive AZITHROMYCIN 250 MG TABS 2 po qd x 1 day, then 1 po qd x 4 days AZITHROMYCIN 250 MG TABS 5960808 AZITHROMYCIN Inactive PREDNISONE 20 MG TAB 2 po qd x 5 days PREDNISONE 20 MG TAB 537366 PREDNISONE Inactive Vital Signs Date Name Value [...] Panel - Chemistry sodium, serum 137 mmol/L 391-903 6156/01/03 potassium, serum 3.4 mmol/L 3.5-5.2 chloride, serum 102 mmol/L 98-107 carbon dioxide, venous blood 29.2 mmol/L 21.0-32.0 blood glucose 87 mg/dL 65-110 calcium, serum 8.5 mg/dL 8.5-10.1 urea nitrogen, blood 8 mg/dL 7-18 creatinine, serum 0.82 mg/dL 0.55-1.30 sodium, serum 140 mmol/L 493-853 2421/07/13 potassium, serum 3.2 mmol/L 3.5-5.2 chloride, serum 103 mmol/L 98-107 carbon dioxide, venous blood 26.9 mmol/L 21.0-32.0 blood glucose 93 mg/dL 65-110 calcium, serum 9.2 mg/dL 8.5-10.1 urea nitrogen, blood 13 mg/dL 7-18 creatinine, serum 0.84 mg/dL 0.60-1.30 sodium, serum 140 mmol/L 254-170 9077/08/21 potassium, serum 3.8 mmol/L 3.5-5.2 chloride, serum [...] ... - Chemistry sodium, serum 141 mmol/L 953-177 3612/08/07 carbon dioxide, venous blood 34.0 mmol/L 21.0-32.0 [...] 0-19 Encounters Code Encounter Date Provider Facility CPT-81283 Level 4 Est. Patient 14:45:25 CDT Harinder Hernandez DO [facility] CPT-74683 Level 4 Est. Patient 09:15:13 CDT Harinder Hernandez [facility] CPT-59888 Level 3 Est. Patient 11:51:58 CDT Harinder Hernandez [facility] CPT-06418 Level 3 Est. Patient 11:30:05 CDT Harinder Hernandez [facility] CPT-23088 Level 4 Est. Patient 10:19:23 CDT Harinder Hernandez [facility] CPT-24477 Level 3 Est. Patient 09:58:[address] [facility] CPT-28186 Level 3 Est. Patient 12:37:[address] [facility] CPT-71003 Level 3 Est. Patient 18:37:[address] [facility] CPT-82375 Level 4 Est. Patient 11:15:54 CDT Nettie Newberry [facility] CPT-50313 Level 3 Est. Patient 16:42:[address] [facility] CPT-12560 Level 3 Est. Patient 15:03:[address] [facility] CPT-16812 Level 3 Est. Patient 15:03:20 CDT Harinder Hernandez [facility] CPT-11273 Level 3 Est. Patient 12:14:34 CDT Harinder Hernandez [facility] CPT-27582 Level 3 Est. Patient 13:47:15 CDT Harinder Cr [facility] CPT-83452 Level 3 Est. Patient 14:08:24 CDT Harinder Cr [facility] CPT-13549 Level 3 Est. Patient 10:07:15 CDT Harinder Cr [facility] CPT-70271 Level 3 Est. Patient 10:06:59 CDT Harinder Cr [facility] CPT-90132 Level 3 Est. Patient 15:53:29 CDT Jae Morgan MD [facility] CPT-37823 Level 3 Est. Patient 17:19:04 CDT Harinder Shaye David [facility] CPT-96755 Level 3 Est. Patient 11:13:01 CDT Harinder Hernandez [facility] CPT-11868 Level 3 Est. Patient 09:03:58 CDT Harinder Hernandez [facility] CPT-88291 Level 3 Est. Patient 14:46:45 REJOINER Harinder Shaye David [facility] CPT-07296 Level 3 Est. Patient 09:35:49 REJOINER Harinder Cr David [facility] CPT-59166 Level 3 Est. Patient 09:29:37 REJOINER Harinder Shaye David [facility] CPT-13199 Level 3 Est. Patient 15:51:07 CDT Harinder Hernandez [facility] CPT-98286 Level 3 Est. Patient 18:13:13 CDT Harinder Cr [facility] CPT-53053 Level 3 Est. Patient 10:44:19 CDT Harinder Hernandez [facility] CPT-41307 Level 4 Est. Patient 10:07:[address] [facility] CPT-77700 Level 3 Est. Patient 15:59:32 REJOINER Harinder Cr [facility] Procedures Code Procedure Name Date Entry Date Standard Description CPT-27892 Abd compl w upright - XRAY USE ONLY 14:48:09 CDT 02/18 CPT-92827 Port a cath flush 13:46:05 CDT CPT-60559 Hip, complete, 2-3 views - XRAY USE ONLY 10:28:40 CDT CPT-92617 BMP - LAB USE ONLY 16:45:09 REJOINER CPT-16143 Port a cath flush 12:00:13 REJOINER CPT-TCMM Transitional Care Mgmt-Moderate 11:20:16 REJOINER CPT-78833 First Vx - Ix admin for Medicare patients 17:35:15 CDT CPT-84234 Fluzone Preservative Free Intramuscular Suspension 17:35 :15 CDT CPT-72185 Microalbumin - LAB USE ONLY 11:52:05 CDT CPT-TCMM Transitional Care Mgmt-Moderate 11:33:57 CDT CPT-60612 No Charge Offi Visit 14:11:29 CDT CPT-07509 Magnesium - LAB USE ONLY 10:45:44 CDT CPT-13282 Lipid - LAB USE ONLY 10:45:44 CDT CPT-23437 CBC - LAB USE ONLY 10:45:44 CDT CPT-06067 Venipuncture Draw Fee 10:45:43 CDT CPT-83902 Venipuncture Draw Fee 18:21:27 CDT CPT-JTINJ Asp/Joint Injection 18:38:04 CDT CPT-39068 Immunization Each Additional Inj 17:38:04 CDT CPT-48878 Immunization Single Admin 17:38:04 CDT CPT-87161 Prevnar 13 17:38:04 CDT CPT-42559 Fluzone Quadrivalent preservative free (>=3yrs.) 17:38: 04 CDT CPT-21450 No Charge Offi Visit 11:14:03 CDT CPT-84781 Chest 2V Frontal and Lat 14:00:18 CDT CPT-OV Office Visit 16:10:28 CDT CPT-JTINJ Asp/Joint Injection 09:03:57 CDT CPT-Cryo Cryotherapy 09:35:49 REJOINER CPT-JTINJ Asp/Joint Injection 09:34:45 REJOINER CPT-J2930 Solu Medrol 125 mg (Methyl Prednisolone Sodium Succinate) 20:37:27 CDT CPT-49250 Abx/Therapy Injection 20:37:27 CDT CPT-79487 Port a cath flush 08:15:51 CDT CPT-66549 Port a cath flush 09:54:16 CDT CPT-84460 Port a cath flush 09:38:02 CDT CPT-80969 Port a cath flush 11:00:27 REJOINER
--- OUTSIDE RECORDS SUMMARY | 2017-12-29 01:46 | XMS REPORT | Clinical Summary ---
Author Author Admin, QIE Organization [facility] Address Unknown Phone Unavailable Allergies, Adverse Reactions, [...] tab SL q5min PRN chest pain NITROGLYCERIN [id number] Active Meenu Alejo LPN Active THEOPHYLLINE ER 300 MG ORAL TABLET EXTENDED RELEASE 12 HOUR 1 po BID THEOPHYLLINE 90793776689 Active Kortney Mccain Active POTASSIUM CHLORIDE ER 20 MEQ ORAL TABLET EXTENDED RELEASE 1 po q day POTASSIUM CHLORIDE 79293824888 Active Kortney Mccain Active POTASSIUM CHLORIDE 20 MEQ ORAL PACKET 1 tab po q day POTASSIUM CHLORIDE 05385586301 No Longer Active Kortney Mccain Active POTASSIUM CHLORIDE ER 10 MEQ ORAL CAPSULE EXTENDED RELEASE 1 capsule BID 2016 POTASSIUM CHLORIDE 69980063366 No Longer Active Kortney Mccain Active LASIX 20 MG ORAL TABLET 1 tablet by mouth every morning FUROSEMIDE 43558268856 No Longer Active Kortney Mccain Active SPIRONOLACTONE 25 MG ORAL TABLET 1 tablet by mouth daily SPIRONOLACTONE 08840328518 Active Kortney Mccain Active FLUOXETINE HCL 10 MG ORAL CAPSULE 1 po qd for depression/anxiety FLUOXETINE HCL 41069459988 Active Harinder Hernandez DO Active VOLTAREN 1 % TRANSDERMAL GEL apply q 6-8 hour to left arm as needed for pain DICLOFENAC SODIUM 48461599219 Active Kortney Mccain Active ALBUTEROL SULFATE (2.5 MG/3ML) 0.083% INHALATION NEBULIZATION SOLUTION 1 vial neb q 4hrs for severe asthma. 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 NIFEDIPINE 08064911759 Active Kortney Mccain Active AMLODIPINE BESYLATE 5 MG ORAL TABLET 1 tablet by mouth daily 2016 AMLODIPINE BESYLATE 13727157617 No Longer Active Harinder Hernandez DO Active TOPAMAX 25 MG ORAL TABLET 1 tab po BID TOPIRAMATE 33647455048 Active Kortney Mccain Active FLUTICASONE PROPIONATE 50 MCG/ACT NASAL SUSPENSION 2 sprays per nostril daily PRN Allergies FLUTICASONE PROPIONATE 67031186180 Active Kortney Mccain Active NIFEDIPINE ER 30 MG ORAL TABLET EXTENDED RELEASE 24 HOUR 1 daily NIFEDIPINE 37944966346 No Longer Active Harinder Hernandez DO Active FLOVENT HFA 110 MCG/ACT INHALATION AEROSOL 2 puffs inhaled b.i.d. FLUTICASONE PROPIONATE HFA 05246885264 Active Harinder Hernandez DO Active EPIPEN 2-BRUNA 0.3 MG/0.3ML INJECTION SOLUTION AUTO-INJECTOR 1 INJ NEEDED EPINEPHRINE 74317453520 Active Kortney Mccain Active PREDNISONE 20 MG ORAL TABLET 1 tab twice daily for 3 day, then one daily for three days PREDNISONE 95459114641 No Longer Active Harinder Hernandez DO Active PREDNISONE 20 MG ORAL TABLET 1 tablet twice daily for 2 days, then 1 tablet once daily for 2 days PREDNISONE 51562016585 No Longer Active Harinder Hernandez DO Active ASMANEX 120 METERED DOSES 220 MCG/INH INHALATION AEROSOL POWDER BREATH ACTIVATED 2 puffs orally twice daily MOMETASONE FUROATE 12474335865 Active Jeri Sosa LPN Active TOPIRAMATE 25 MG ORAL TABLET 1 tab po BID TOPIRAMATE 02743128852 No Longer Active Nettie Newberry APRN Active AMLODIPINE BESYLATE 5 MG ORAL TABLET Take 1 tab po daily AMLODIPINE BESYLATE 12027148678 No Longer Active Nettie Newberry APRN Active MECLIZINE HCL 25 MG ORAL TABLET 1 tablet three times daily for 3 days, then 1/ 2 tab three times daily for 3 days. MECLIZINE HCL 33748396460 No Longer Active Nettie Newberry MAHENDRA Active AMITRIPTYLINE HCL 25 MG ORAL TABLET 1 q hs prn AMITRIPTYLINE HCL 07310771850 No Longer Active Nettie Newberry MAHENDRA Active DILAUDID 2 MG ORAL TABLET Take 1/2 tab po every 4 hours as needed for pain HYDROMORPHONE HCL 20926723687 No Longer Active Nettie Newberry APRN Active CLOPIDOGREL BISULFATE 75 MG ORAL TABLET 1 tab by mouth once daily CLOPIDOGREL BISULFATE 05842058088 Active Harinder Hernandez DO Active ATORVASTATIN CALCIUM 10 MG ORAL TABLET 1 at bedtime ATORVASTATIN CALCIUM 49154749689 Active Kortney Mccain Active LOVASTATIN 40 MG ORAL TABLET Take 1 tab po every hs LOVASTATIN 17332139015 No Longer Active Harinder Hernandez DO Active PREDNISONE 20 MG ORAL TABLET 2 tabs daily for 4 days, 1 tab daily for 4 days, 1/2 tab daily for 4 days PREDNISONE 46779991824 No Longer Active Harinder Hernandez DO Active LEVAQUIN 500 MG ORAL TABLET Take 1 tab po daily x 8 days LEVOFLOXACIN 49366136788 No Longer Active Harinder Hernandez DO Active VENTOLIN HFA 108 (90 Base) MCG/ACT INHALATION AEROSOL SOLUTION 2 -4 puffs four times a day PRN ALBUTEROL SULFATE 22320086330 No Longer Active Jeri Sosa LPN Active ACEBUTOLOL HCL 200 MG ORAL CAPSULE 1 cap in the morning and 2 caps in the evening ACEBUTOLOL HCL 77841911251 No Longer Active Harinder Hernandez DO Active CEFDINIR 300 MG ORAL CAPSULE take 1 cap po bid x 10 days CEFDINIR 36255324180 No Longer Active Harinder Hernandez DO Active LOVASTATIN 40 MG ORAL TABLET 1 pill by mouth nightly for cholesterol LOVASTATIN 56532707513 No Longer Active Nettie Newberry APRN Active NITROSTAT 0.4 MG SUBLINGUAL TABLET SUBLINGUAL 1 tab under tongueas needed for chest pain ( may take 3 total, 5 min apart, then call 911) NITROGLYCERIN 25599566991 No Longer Active Nettie Newberry APRN Active POTASSIUM CHLORIDE ER 10 MEQ ORAL CAPSULE EXTENDED RELEASE 1 capsule by mouth daily POTASSIUM CHLORIDE 11219159187 No Longer Active Nettie Newberry APRN Active TESSALON PERLES 100 MG ORAL CAPSULE 1 to 2 tablets by mouth 3 times daily as needed for cough BENZONATATE 59898813672 No Longer Active Nettie Newberry APRN Active PREDNISONE 20 MG ORAL TABLET 2 po qd x 5 days PREDNISONE 89969368345 No Longer Active Jae Morgan MD Active AZITHROMYCIN 250 MG ORAL TABLET 2 po qd x 1 day, then 1 po qd x 4 days 12/30 AZITHROMYCIN 31283163186 No Longer Active Jae Morgan MD Active PREDNISONE 20 MG ORAL TABLET 1 tab twice daily for 3 day, then one daily for three days PREDNISONE 40299037372 No Longer Active Jae Morgan MD Active SINGULAIR 10 MG ORAL TABLET 1 pill by mouth every evening for breathing. 2014 MONTELUKAST SODIUM 87862766329 Active Kortney Mccain Active TYLENOL 325 MG ORAL TABLET 3 by mouth q4h as needed ACETAMINOPHEN 47203027286 Active Harinder Hernandez DO Active POTASSIUM CHLORIDE ER 10 MEQ ORAL TABLET EXTENDED RELEASE take 1 tab po daily POTASSIUM CHLORIDE 22675673075 No Longer Active Harinder Hernandez DO Active PREDNISONE 20 MG ORAL TABLET 1 TID x 2 days, then 1 BID x 3 days, then 1 Daily x 3 days, then stop PREDNISONE 15428475370 No Longer Active John Montemayor APRN Active LEVAQUIN 500 MG ORAL TABLET 1 tablet by mouth daily LEVOFLOXACIN 91552649283 No Longer Active Jillina Frazell [employer]MER CHILD CAREGIVER Active NEURONTIN 300 MG ORAL CAPSULE 1 cap by mouth three times daily for restless leg GABAPENTIN 61057890064 No Longer Active Harinder Hernandez DO Active BENZONATATE 100 MG ORAL CAPSULE 1 cap po TID PRN BENZONATATE 41545093857 No Longer Active Harinder Hernandez DO Active MONTELUKAST SODIUM 10 MG ORAL TABLET 1 tab po in the evening 2014 MONTELUKAST SODIUM 24780434479 No Longer Active Harinder Hernandez DO Active MUPIROCIN 2 % EXTERNAL OINTMENT apply to affected area BID x 14 days MUPIROCIN 38673877620 No Longer Active Harinder Hernandez DO Active TYLENOL EXTRA STRENGTH 500 MG ORAL TABLET as needed ACETAMINOPHEN 02391881612 No Longer Active Harinder Hernandez DO Active PREDNISONE 10 MG ORAL TABLET 1 tab po daily PREDNISONE 70768523101 No Longer Active Harinder Hernandez DO Active PREDNISONE 20 MG ORAL TABLET 2 tabs daily for 4 days, 1 tab daily for 4 days, 1/2 tab daily for 4 days PREDNISONE 66196591745 No Longer Active Harinder Hernandez DO Active AZITHROMYCIN 250 MG ORAL TABLET 2 po qd x 1 day, then 1 po qd x 4 days 04/06 AZITHROMYCIN 71808876188 No Longer Active Harinder Hernandez DO Active PREDNISONE 20 MG ORAL TABLET 3 tabs today, then 1 tab twice daily for 3 day, then one daily for three days PREDNISONE 93643253707 No Longer Active Harinder Hernandez DO Active NIFEDIAC CC 30 MG ORAL TABLET EXTENDED RELEASE 24 HOUR 1 tablet daily for raynaud's syndrome NIFEDIPINE 60546098464 No Longer Active Tawnya Pardo MA Active AMBIEN 10 MG ORAL TABLET 1/2 tab by mouth at bedtime as needed for sleep 2013 ZOLPIDEM TARTRATE 74488368413 Active Kortney Mccain Active CLONAZEPAM 1 MG ORAL TABLET 1 tablet at bedtime for insomnia and restless legs CLONAZEPAM 80722468254 Active Harinder Hernandez DO Active CLONAZEPAM 0.5 MG ORAL TABLET 1 tab po daily CLONAZEPAM 65552583785 No Longer Active Harinder Hernandez DO Active PREDNISONE 10 MG ORAL TABLET 1 tablet daily for COPD PREDNISONE 18063067878 Active Kortney Mccain Active PROAIR HFA 108 (90 Base) MCG/ACT INHALATION AEROSOL SOLUTION 2 puffs four times a day as needed ALBUTEROL SULFATE 60590102915 Active Harinder Hernandez DO Active FLOVENT HFA 110 MCG/ACT INHALATION AEROSOL 2 puffs inhaled b.i.d. FLUTICASONE PROPIONATE HFA 03693634737 Active Kortney Mccain Active ACIPHEX 20 MG ORAL TABLET DELAYED RELEASE 1 tab po daily RABEPRAZOLE SODIUM 54585040257 Active Kaylah Newberry Active CLONAZEPAM 0.5 MG ORAL TABLET 1 tab po daily CLONAZEPAM 0.5 MG ORAL TABLET 018630 CLONAZEPAM Inactive PREDNISONE 20 MG ORAL TABLET 3 tabs today, then 1 tab twice daily for 3 day, then one daily for three days PREDNISONE 20 MG ORAL TABLET 783482 PREDNISONE Inactive PREDNISONE 20 MG ORAL TABLET 2 tabs daily for 4 days, 1 tab daily for 4 days, 1/2 tab daily for 4 days PREDNISONE 20 MG ORAL TABLET 099464 PREDNISONE Inactive PREDNISONE 10 MG ORAL TABLET 1 tab po daily PREDNISONE 10 MG ORAL TABLET 445262 PREDNISONE Inactive TYLENOL EXTRA STRENGTH 500 MG ORAL TABLET as needed TYLENOL EXTRA STRENGTH 500 MG ORAL TABLET 942706 ACETAMINOPHEN Inactive MUPIROCIN 2 % EXTERNAL OINTMENT apply to affected area BID x 14 days MUPIROCIN 2 % EXTERNAL OINTMENT 064107 MUPIROCIN Inactive MONTELUKAST SODIUM 10 MG ORAL TABLET 1 tab po in the evening 2014 MONTELUKAST SODIUM 10 MG ORAL TABLET 238394 MONTELUKAST SODIUM Inactive BENZONATATE 100 MG ORAL CAPSULE 1 cap po TID PRN BENZONATATE 100 MG ORAL CAPSULE 847945 BENZONATATE Inactive NEURONTIN 300 MG ORAL CAPSULE 1 cap by mouth three times daily for restless leg NEURONTIN 300 MG ORAL CAPSULE 690257 GABAPENTIN Inactive LEVAQUIN 500 MG ORAL TABLET 1 tablet by mouth daily LEVAQUIN 500 MG ORAL TABLET 714409 LEVOFLOXACIN Inactive PREDNISONE 20 MG ORAL TABLET 1 TID x 2 days, then 1 BID x 3 days, then 1 Daily x 3 days, then stop PREDNISONE 20 MG ORAL TABLET 964635 PREDNISONE Inactive POTASSIUM CHLORIDE ER 10 MEQ ORAL TABLET EXTENDED RELEASE take 1 tab po daily POTASSIUM CHLORIDE ER 10 MEQ ORAL TABLET EXTENDED RELEASE POTASSIUM CHLORIDE Inactive PREDNISONE 20 MG ORAL TABLET 1 tab twice daily for 3 day, then one daily for three days PREDNISONE 20 MG ORAL TABLET 165741 PREDNISONE Inactive TESSALON PERLES 100 MG ORAL CAPSULE 1 to 2 tablets by mouth 3 times daily as needed for cough TESSALON PERLES 100 MG ORAL CAPSULE 738386 BENZONATATE Inactive POTASSIUM CHLORIDE ER 10 MEQ ORAL CAPSULE EXTENDED RELEASE 1 capsule by mouth daily POTASSIUM CHLORIDE ER 10 MEQ ORAL CAPSULE EXTENDED RELEASE POTASSIUM CHLORIDE Inactive NITROSTAT 0.4 MG SUBLINGUAL TABLET SUBLINGUAL 1 tab under tongueas needed for chest pain ( may take 3 total, 5 min apart, then call 911) NITROSTAT 0.4 MG SUBLINGUAL TABLET SUBLINGUAL 583574 NITROGLYCERIN Inactive LOVASTATIN 40 MG ORAL TABLET 1 pill by mouth nightly for cholesterol LOVASTATIN 40 MG ORAL TABLET 343226 LOVASTATIN Inactive CEFDINIR 300 MG ORAL CAPSULE take 1 cap po bid x 10 days CEFDINIR 300 MG ORAL CAPSULE 814467 CEFDINIR Inactive ACEBUTOLOL HCL 200 MG ORAL CAPSULE 1 cap in the morning and 2 caps in the evening ACEBUTOLOL HCL 200 MG ORAL CAPSULE 752420 ACEBUTOLOL HCL Inactive VENTOLIN HFA 108 (90 Base) MCG/ACT INHALATION AEROSOL SOLUTION 2 -4 puffs four times a day PRN VENTOLIN HFA 108 (90 Base) MCG/ ACT INHALATION AEROSOL SOLUTION ALBUTEROL SULFATE Inactive LEVAQUIN 500 MG ORAL TABLET Take 1 tab po daily x 8 days LEVAQUIN 500 MG ORAL TABLET 236756 LEVOFLOXACIN Inactive PREDNISONE 20 MG ORAL TABLET 2 tabs daily for 4 days, 1 tab daily for 4 days, 1/2 tab daily for 4 days PREDNISONE 20 MG ORAL TABLET 414048 PREDNISONE Inactive LOVASTATIN 40 MG ORAL TABLET Take 1 tab po every hs LOVASTATIN 40 MG ORAL TABLET 402721 LOVASTATIN Inactive DILAUDID 2 MG ORAL TABLET Take 1/2 tab po every 4 hours as needed for pain DILAUDID 2 MG ORAL TABLET 905491 HYDROMORPHONE HCL Inactive AMITRIPTYLINE HCL 25 MG ORAL TABLET 1 q hs prn AMITRIPTYLINE HCL 25 MG ORAL TABLET 333275 AMITRIPTYLINE HCL Inactive MECLIZINE HCL 25 MG ORAL TABLET 1 tablet three times daily for 3 days, then 1/ 2 tab three times daily for 3 days. MECLIZINE HCL 25 MG ORAL TABLET 543358 MECLIZINE HCL Inactive AMLODIPINE BESYLATE 5 MG ORAL TABLET Take 1 tab po daily AMLODIPINE BESYLATE 5 MG ORAL TABLET 140597 AMLODIPINE BESYLATE Inactive TOPIRAMATE 25 MG ORAL TABLET 1 tab po BID TOPIRAMATE 25 MG ORAL TABLET 230504 TOPIRAMATE Inactive PREDNISONE 20 MG ORAL TABLET 1 tablet twice daily for 2 days, then 1 tablet once daily for 2 days PREDNISONE 20 MG ORAL TABLET 383923 PREDNISONE Inactive PREDNISONE 20 MG ORAL TABLET 1 tab twice daily for 3 day, then one daily for three days PREDNISONE 20 MG ORAL TABLET 350042 PREDNISONE Inactive NIFEDIPINE ER 30 MG ORAL TABLET EXTENDED RELEASE 24 HOUR 1 daily NIFEDIPINE ER 30 MG ORAL TABLET EXTENDED RELEASE 24 HOUR NIFEDIPINE Inactive AMLODIPINE BESYLATE 5 MG ORAL TABLET 1 tablet by mouth daily 2016 AMLODIPINE BESYLATE 5 MG ORAL TABLET 091848 AMLODIPINE BESYLATE Inactive LASIX 20 MG ORAL TABLET 1 tablet by mouth every morning LASIX 20 MG ORAL TABLET 697698 FUROSEMIDE Inactive POTASSIUM CHLORIDE ER 10 MEQ ORAL CAPSULE EXTENDED RELEASE 1 capsule BID 2016 POTASSIUM CHLORIDE ER 10 MEQ ORAL CAPSULE EXTENDED RELEASE POTASSIUM CHLORIDE Inactive POTASSIUM CHLORIDE 20 MEQ ORAL PACKET 1 tab po q day POTASSIUM CHLORIDE 20 MEQ ORAL PACKET 2005487 POTASSIUM CHLORIDE Inactive AZITHROMYCIN 250 MG ORAL TABLET 2 po qd x 1 day, then 1 po qd x 4 days 04/06 AZITHROMYCIN 250 MG ORAL TABLET 278207 AZITHROMYCIN Inactive AZITHROMYCIN 250 MG ORAL TABLET 2 po qd x 1 day, then 1 po qd x 4 days 12/30 AZITHROMYCIN 250 MG ORAL TABLET 106552 AZITHROMYCIN Inactive PREDNISONE 20 MG ORAL TABLET 2 po qd x 5 days PREDNISONE 20 MG ORAL TABLET 304696 PREDNISONE Inactive Vital Signs Date Name Value [...] Panel - Chemistry sodium, serum 137 mmol/L 160-617 8694/01/03 potassium, serum 3.4 mmol/L 3.5-5.2 chloride, serum 102 mmol/L 98-107 carbon dioxide, venous blood 29.2 mmol/L 21.0-32.0 blood glucose 87 mg/dL 65-110 calcium, serum 8.5 mg/dL 8.5-10.1 urea nitrogen, blood 8 mg/dL 7-18 creatinine, serum 0.82 mg/dL 0.55-1.30 sodium, serum 140 mmol/L 365-833 7328/07/13 potassium, serum 3.2 mmol/L 3.5-5.2 chloride, serum 103 mmol/L 98-107 carbon dioxide, venous blood 26.9 mmol/L 21.0-32.0 blood glucose 93 mg/dL 65-110 calcium, serum 9.2 mg/dL 8.5-10.1 urea nitrogen, blood 13 mg/dL 7-18 creatinine, serum 0.84 mg/dL 0.60-1.30 sodium, serum 140 mmol/L 589-171 4138/08/21 potassium, serum 3.8 mmol/L 3.5-5.2 chloride, serum [...] ... - Chemistry sodium, serum 141 mmol/L 859-844 3414/08/07 carbon dioxide, venous blood 34.0 mmol/L 21.0-32.0 [...] 1.40 mg/dL 0.00-1.00 cholesterol, serum 192 mg/dL 184-806 0138/10/19 triglyceride, serum, fasting 71 mg/dL 30-200 HDL cholesterol, serum 72 mg/dL 32-60 LDL cholesterol, serum 106 mg/dL 0-130 Lab Report: THEOPHYLLINE - Toxicology theophylline level, serum 3.1 ug/mL 10.0-20.0 Encounters Code Encounter Date Provider Facility CPT-46676 Level 4 Est. Patient 14:45:25 CDT Harinder Hernandez DO [facility] CPT-45459 Level 4 Est. Patient 09:15:13 CDT Harinder Hernandez [facility] CPT-90367 Level 3 Est. Patient 11:51:58 CDT Harinder Hernandez [facility] CPT-56921 Level 3 Est. Patient 11:30:05 CDT Harinder Hernandez [facility] CPT-25459 Level 4 Est. Patient 10:19:23 CDT Harinder Hernandez [facility] CPT-42775 Level 3 Est. Patient 09:58:58 CDT Harinder Cr [facility] CPT-69661 Level 3 Est. Patient 12:37:21 CDT Harinder Cr [facility] CPT-18623 Level 3 Est. Patient 18:37:17 CDT Harinder Cr [facility] CPT-57371 Level 4 Est. Patient 11:15:54 CDT eNttie Newberry [facility] CPT-11757 Level 3 Est. Patient 16:42:24 CDT Harinder Cr [facility] CPT-00485 Level 3 Est. Patient 15:03:36 CDT Harinder Cr [facility] CPT-36251 Level 3 Est. Patient 15:03:20 CDT Harinder Cr [facility] CPT-60227 Level 3 Est. Patient 12:14:34 CDT Harinder Hernandez [facility] CPT-83906 Level 3 Est. Patient 13:47:15 CDT Harinder Cr [facility] CPT-50241 Level 3 Est. Patient 14:08:24 CDT Harinder Cr [facility] CPT-03878 Level 3 Est. Patient 10:07:15 CDT Harinder Cr [facility] CPT-04856 Level 3 Est. Patient 10:06:59 CDT Harinder Cr [facility] CPT-90391 Level 3 Est. Patient 15:53:29 CDT Jae Morgan MD [facility] CPT-76517 Level 3 Est. Patient 17:19:04 CDT Harinder Hernandez [facility] CPT-99124 Level 3 Est. Patient 11:13:01 CDT Harinder Hernandez [facility] CPT-89723 Level 3 Est. Patient 09:03:58 CDT Harinder Hernandez [facility] CPT-14279 Level 3 Est. Patient 14:46:45 [employer] Harinder Hernandez [facility] CPT-82151 Level 3 Est. Patient 09:35:49 [employer] Harinder Shaye David [facility] CPT-78337 Level 3 Est. Patient 09:29:37 [employer] Harinder Hernandez [facility] CPT-88623 Level 3 Est. Patient 15:51:07 CDT Harinder Hernandez [facility] CPT-37410 Level 3 Est. Patient 18:13:13 CDT Harinder Cr [facility] CPT-29253 Level 3 Est. Patient 10:44:19 CDT Harinder Hernandez [facility] CPT-94739 Level 4 Est. Patient 10:07:19 [employer] Harinder Cr [facility] CPT-96842 Level 3 Est. Patient 15:59:32 [employer] Harinder Cr [facility] Procedures Code Procedure Name Date Entry Date Standard Description CPT-16565 Abd compl w upright - XRAY USE ONLY 14:48:09 CDT 02/18 CPT-33481 Port a cath flush 13:46:05 CDT CPT-84378 Hip, complete, 2-3 views - XRAY USE ONLY 10:28:40 CDT CPT-79625 BMP - LAB USE ONLY 16:45:09 [employer] CPT-58513 Port a cath flush 12:00:13 [employer]LECT[employer] CPT-TCMM Transitional Care Mgmt-Moderate 11:20:16 [employer]LECT[employer]ICIAN CPT-06943 First Vx - Ix admin for Medicare patients 17:35:15 CDT CPT-30758 Fluzone Preservative Free Intramuscular Suspension 17:35 :15 CDT CPT-76498 Microalbumin - LAB USE ONLY 11:52:05 CDT CPT-TCMM Transitional Care Mgmt-Moderate 11:33:57 CDT CPT-95250 No Charge Offi Visit 14:11:29 CDT CPT-13859 Magnesium - LAB USE ONLY 10:45:44 CDT CPT-60794 Lipid - LAB USE ONLY 10:45:44 CDT CPT-71386 CBC - LAB USE ONLY 10:45:44 CDT CPT-29194 Venipuncture Draw Fee 10:45:43 CDT CPT-64708 Venipuncture Draw Fee 18:21:27 CDT CPT-JTINJ Asp/Joint Injection 18:38:04 CDT CPT-99749 Immunization Each Additional Inj 17:38:04 CDT CPT-61768 Immunization Single Admin 17:38:04 CDT CPT-44598 Prevnar 13 17:38:04 CDT CPT-33577 Fluzone Quadrivalent preservative free (>=3yrs.) 17:38: 04 CDT CPT-62005 No Charge Offi Visit 11:14:03 CDT CPT-10642 Chest 2V Frontal and Lat 14:00:18 CDT CPT-OV Office Visit 16:10:28 CDT CPT-JTINJ Asp/Joint Injection 09:03:57 CDT CPT-Cryo Cryotherapy 09:35:49 [employer] ELECT[employer]ICIAN CPT-JTINJ Asp/Joint Injection 09:34:45 [employer]ON ELECTRICIAN CPT-J2930 Solu Medrol 125 mg (Methyl Prednisolone Sodium Succinate) 20:37:27 CDT CPT-45582 Abx/Therapy Injection 20:37:27 CDT CPT-06055 Port a cath flush 08:15:51 CDT CPT-62684 Port a cath flush 09:54:16 CDT CPT-20418 Port a cath flush 09:38:02 CDT CPT-49215 Port a cath flush 11:00:27 [employer]LECT[employer]IAN
--- OUTSIDE RECORDS SUMMARY | 2017-12-29 01:47 | XMS REPORT | Clinical Summary ---
Author Author Admin, QIE Organization [facility] [employer] Address Unknown Phone Unavailable Allergies, Adverse Reactions, [...] (generalized) CVA with right hemiparesis 438.20 Active Harindre Cr David DO Hemiplegia affecting unspecified side [...] David DO Sacroiliitis, right ICD-720.2 Inactive Harinder rC David DO Biceps tendinitis, left ICD-726.12 Inactive [...] MG/0.3ML INJ SOAJ 1 INJ NEEDED EPINEPHRINE 22123689665 Active Tawnya Pardo MA Active PREDNISONE 20 MG TAB 1 tab twice daily for 3 day, then one daily for three days PREDNISONE 52374624652 No Longer Active Harinder Hernandez DO Active PREDNISONE 20 MG TAB 1 tablet twice daily for 2 days, then 1 tablet once daily for 2 days PREDNISONE 64384212435 No Longer Active Harinder Hernandez DO Active ASMANEX 120 METERED DOSES 220 MCG/INH INH AEPB 2 puffs orally twice daily MOMETASONE FUROATE 48667236413 Active Jeri Sosa RPT,RMA Active NIFEDIPINE ER 30 MG ORAL [id number] 1 daily NIFEDIPINE 22344273644 Active Tawnya Pardo MA Active TOPIRAMATE 25 MG TABS 1 tab po BID TOPIRAMATE 19802390092 No Longer Active Nettie Newberry APRN Active AMLODIPINE BESYLATE 5 MG ORAL TABS Take 1 tab po daily AMLODIPINE BESYLATE 25443061948 No Longer Active Nettie Newberry APRN Active MECLIZINE HCL 25 MG TAB 1 tablet three times daily for 3 days, then 1/2 tab three times daily for 3 days. MECLIZINE HCL 55324518933 No Longer Active Nettie Newberry APRN Active AMITRIPTYLINE HCL 25 MG ORAL TABS 1 q hs prn AMITRIPTYLINE HCL 87652919212 No Longer Active Nettie Newberry APRN Active DILAUDID 2 MG ORAL TABS Take 1/2 tab po every 4 hours as needed for pain 2014 HYDROMORPHONE HCL 09584883692 No Longer Active Nettie Newberry APRN Active CLOPIDOGREL BISULFATE 75 MG ORAL TABS 1 tab by mouth once daily CLOPIDOGREL BISULFATE 71919941561 Active Tawnya Pardo MA Active ATORVASTATIN CALCIUM 10 MG ORAL TABS 1 at bedtime ATORVASTATIN CALCIUM 53042015417 Active Tawnya Pardo MA Active LOVASTATIN 40 MG ORAL TABS Take 1 tab po every hs LOVASTATIN 33491994272 No Longer Active Harinder Hernandez DO Active PREDNISONE 20 MG TAB 2 tabs daily for 4 days, 1 tab daily for 4 days, 1/2 tab daily for 4 days PREDNISONE 64272916885 No Longer Active Harinder Hernandez DO Active LEVAQUIN 500 MG ORAL TABS Take 1 tab po daily x 8 days LEVOFLOXACIN 23422452511 No Longer Active Harinder Hernandez DO Active VENTOLIN HFA 108 (90 BASE) MCG/ACT AERS 2 -4 puffs four times a day PRN 2013 ALBUTEROL SULFATE 10771987563 No Longer Active Jeri Sosa RPT,RMA Active ACEBUTOLOL HCL 200 MG CAPS 1 cap in the morning and 2 caps in the evening ACEBUTOLOL HCL 30359213268 No Longer Active Harinder Hernandez DO Active CEFDINIR 300 MG ORAL CAPS take 1 cap po bid x 10 days CEFDINIR 10612053858 No Longer Active Harinder Hernandez DO Active LOVASTATIN 40 MG TABS 1 pill by mouth nightly for cholesterol LOVASTATIN 20568344194 No Longer Active Nettie Newberry APRN Active NITROSTAT 0.4 MG SUBL 1 tab under tongueas needed for chest pain ( may take 3 total, 5 min apart, then call 911) NITROGLYCERIN 68627185792 No Longer Active Nettie Newberry APRN Active POTASSIUM CHLORIDE CR 10 MEQ CPCR 1 capsule by mouth daily 02/14 POTASSIUM CHLORIDE 70684499888 No Longer Active Nettie Newberry APRN Active TESSALON PERLES 100 MG CAP 1 to 2 tablets by mouth 3 times daily as needed for cough BENZONATATE 03583511940 No Longer Active Nettie Newberry APRN Active THEOPHYLLINE ER 200 MG ORAL [id number] Take 1 tab every 12 hours THEOPHYLLINE 91386064990 Active Tawnya Pardo MA Active PREDNISONE 20 MG TAB 2 po qd x 5 days PREDNISONE 82440897725 No Longer Active Jae Morgan MD Active AZITHROMYCIN 250 MG TABS 2 po qd x 1 day, then 1 po qd x 4 days AZITHROMYCIN 61986625973 No Longer Active Jae Morgan MD Active PREDNISONE 20 MG TAB 1 tab twice daily for 3 day, then one daily for three days PREDNISONE 21794083676 No Longer Active Jae Morgan MD Active SINGULAIR 10 MG TABS 1 pill by mouth every evening for breathing. MONTELUKAST SODIUM 72389479754 Active Tawnya Pardo MA Active TYLENOL 325 MG TAB 3 by mouth q4h as needed ACETAMINOPHEN 43456180984 Active Harinder Hernandez DO Active POTASSIUM CHLORIDE ER 10 MEQ CR-TABS take 1 tab po daily POTASSIUM CHLORIDE 14295323439 No Longer Active Harinder Hernandez DO Active PREDNISONE 20 MG TAB 1 TID x 2 days, then 1 BID x 3 days, then 1 Daily x 3 days, then stop PREDNISONE 96857724350 No Longer Active Derrickllkvng Montemayor APRN Active LEVAQUIN 500 MG TAB 1 tablet by mouth daily LEVOFLOXACIN 57359594991 No Longer Active Jillkvng Montemayor APRN Active NEURONTIN 300 MG CAP 1 cap by mouth three times daily for restless leg 06/22 GABAPENTIN 14135599180 No Longer Active Harinder Hernandez DO Active BENZONATATE 100 MG CAPS 1 cap po TID PRN BENZONATATE 16522919468 No Longer Active Harinder Hernandez DO Active MONTELUKAST SODIUM 10 MG TABS 1 tab po in the evening MONTELUKAST SODIUM 03934714663 No Longer Active Harinder Hernandez DO Active MUPIROCIN 2 % OINT apply to affected area BID x 14 days MUPIROCIN 86688097814 No Longer Active Harinder Hernandez DO Active TYLENOL EXTRA STRENGTH 500 MG TABS as needed ACETAMINOPHEN 01811057998 No Longer Active Harinder Hernandez DO Active PREDNISONE 10 MG TABS 1 tab po daily PREDNISONE 97352371386 No Longer Active Harinder Hernandez DO Active PREDNISONE 20 MG TAB 2 tabs daily for 4 days, 1 tab daily for 4 days, 1/2 tab daily for 4 days PREDNISONE 92506305129 No Longer Active Harinder Hernandez DO Active AZITHROMYCIN 250 MG TABS 2 po qd x 1 day, then 1 po qd x 4 days AZITHROMYCIN 75035036828 No Longer Active Harinder Hernandez DO Active PREDNISONE 20 MG TAB 3 tabs today, then 1 tab twice daily for 3 day, then one daily for three days PREDNISONE 44727994743 No Longer Active Harinder Hernandez DO Active NIFEDIAC CC 30 MG [id number] 1 tablet daily for raynaud's syndrome NIFEDIPINE 22765810847 No Longer Active Tawnya Pardo MA Active AMBIEN 10 MG TAB 1/2 tab by mouth at bedtime as needed for sleep ZOLPIDEM TARTRATE 45047477325 Active Harinder Hernandez DO Active CLONAZEPAM 1 MG TABS 1 tablet at bedtime for insomnia and restless legs 09/14 CLONAZEPAM 31545194373 Active Kaylah Newberry Active CLONAZEPAM 0.5 MG TABS 1 tab po daily CLONAZEPAM 64878423397 No Longer Active Hairnder Hernandez DO Active PREDNISONE 10 MG TAB 1 tablet daily for COPD PREDNISONE 67655914090 Active Tawnya Pardo MA Active PROAIR HFA 108 (90 BASE) MCG/ACT AERS 2 puffs four times a day as needed 2012 ALBUTEROL SULFATE 89669919687 Active Tawnya Pardo MA Active FLOVENT HFA 110 MCG/ACT AERO 2 puffs inhaled b.i.d. FLUTICASONE PROPIONATE HFA 98666342401 Active Tawnya Pardo MA Active ACIPHEX 20 MG TBEC 1 tab po daily RABEPRAZOLE SODIUM 21916681273 Active Tawnya Pardo MA Active CLONAZEPAM 0.5 MG TABS 1 tab po daily CLONAZEPAM 0.5 MG TABS 841346 CLONAZEPAM Inactive PREDNISONE 20 MG TAB 3 tabs today, then 1 tab twice daily for 3 day, then one daily for three days PREDNISONE 20 MG TAB 802752 PREDNISONE Inactive PREDNISONE 20 MG TAB 2 tabs daily for 4 days, 1 tab daily for 4 days, 1/2 tab daily for 4 days PREDNISONE 20 MG TAB 946514 PREDNISONE Inactive PREDNISONE 10 MG TABS 1 tab po daily PREDNISONE 10 MG TABS 808945 PREDNISONE Inactive TYLENOL EXTRA STRENGTH 500 MG TABS as needed TYLENOL EXTRA STRENGTH 500 MG TABS 299860 ACETAMINOPHEN Inactive MUPIROCIN 2 % OINT apply to affected area BID x 14 days MUPIROCIN 2 % OINT 647969 MUPIROCIN Inactive MONTELUKAST SODIUM 10 MG TABS 1 tab po in the evening MONTELUKAST SODIUM 10 MG TABS 422835 MONTELUKAST SODIUM Inactive BENZONATATE 100 MG CAPS 1 cap po TID PRN BENZONATATE 100 MG CAPS 308193 BENZONATATE Inactive NEURONTIN 300 MG CAP 1 cap by mouth three times daily for restless leg 06/22 NEURONTIN 300 MG CAP 137055 GABAPENTIN Inactive LEVAQUIN 500 MG TAB 1 tablet by mouth daily LEVAQUIN 500 MG TAB 991988 LEVOFLOXACIN Inactive PREDNISONE 20 MG TAB 1 TID x 2 days, then 1 BID x 3 days, then 1 Daily x 3 days, then stop PREDNISONE 20 MG TAB 825917 PREDNISONE Inactive POTASSIUM CHLORIDE ER 10 MEQ CR-TABS take 1 tab po daily POTASSIUM CHLORIDE ER 10 MEQ CR-TABS POTASSIUM CHLORIDE Inactive PREDNISONE 20 MG TAB 1 tab twice daily for 3 day, then one daily for three days PREDNISONE 20 MG TAB 145275 PREDNISONE Inactive TESSALON PERLES 100 MG CAP 1 to 2 tablets by mouth 3 times daily as needed for cough TESSALON PERLES 100 MG CAP 139970 BENZONATATE Inactive POTASSIUM CHLORIDE CR 10 MEQ CPCR 1 capsule by mouth daily 02/14 POTASSIUM CHLORIDE CR 10 MEQ CPCR POTASSIUM CHLORIDE Inactive NITROSTAT 0.4 MG SUBL 1 tab under tongueas needed for chest pain ( may take 3 total, 5 min apart, then call 911) NITROSTAT 0.4 MG SUBL 320874 NITROGLYCERIN Inactive LOVASTATIN 40 MG TABS 1 pill by mouth nightly for cholesterol LOVASTATIN 40 MG TABS 443720 LOVASTATIN Inactive CEFDINIR 300 MG ORAL CAPS take 1 cap po bid x 10 days CEFDINIR 300 MG ORAL CAPS 848801 CEFDINIR Inactive ACEBUTOLOL HCL 200 MG CAPS 1 cap in the morning and 2 caps in the evening ACEBUTOLOL HCL 200 MG CAPS 065379 ACEBUTOLOL HCL Inactive VENTOLIN HFA 108 (90 BASE) MCG/ACT AERS 2 -4 puffs four times a day PRN 2013 VENTOLIN HFA 108 (90 BASE) MCG/ACT AERS ALBUTEROL SULFATE Inactive LEVAQUIN 500 MG ORAL TABS Take 1 tab po daily x 8 days LEVAQUIN 500 MG ORAL TABS 616452 LEVOFLOXACIN Inactive PREDNISONE 20 MG TAB 2 tabs daily for 4 days, 1 tab daily for 4 days, 1/2 tab daily for 4 days PREDNISONE 20 MG TAB 924983 PREDNISONE Inactive LOVASTATIN 40 MG ORAL TABS Take 1 tab po every hs LOVASTATIN 40 MG ORAL TABS 196592 LOVASTATIN Inactive DILAUDID 2 MG ORAL TABS Take 1/2 tab po every 4 hours as needed for pain 2014 DILAUDID 2 MG ORAL TABS 397403 HYDROMORPHONE HCL Inactive AMITRIPTYLINE HCL 25 MG ORAL TABS 1 q hs prn AMITRIPTYLINE HCL 25 MG ORAL TABS 436702 AMITRIPTYLINE HCL Inactive MECLIZINE HCL 25 MG TAB 1 tablet three times daily for 3 days, then 1/2 tab three times daily for 3 days. MECLIZINE HCL 25 MG TAB 079378 MECLIZINE HCL Inactive AMLODIPINE BESYLATE 5 MG ORAL TABS Take 1 tab po daily AMLODIPINE BESYLATE 5 MG ORAL TABS 722143 AMLODIPINE BESYLATE Inactive TOPIRAMATE 25 MG TABS 1 tab po BID TOPIRAMATE 25 MG TABS 519726 TOPIRAMATE Inactive PREDNISONE 20 MG TAB 1 tablet twice daily for 2 days, then 1 tablet once daily for 2 days PREDNISONE 20 MG TAB 754678 PREDNISONE Inactive PREDNISONE 20 MG TAB 1 tab twice daily for 3 day, then one daily for three days PREDNISONE 20 MG TAB 541323 PREDNISONE Inactive AZITHROMYCIN 250 MG TABS 2 po qd x 1 day, then 1 po qd x 4 days AZITHROMYCIN 250 MG TABS 9044741 AZITHROMYCIN Inactive AZITHROMYCIN 250 MG TABS 2 po qd x 1 day, then 1 po qd x 4 days AZITHROMYCIN 250 MG TABS 0543020 AZITHROMYCIN Inactive PREDNISONE 20 MG TAB 2 po qd x 5 days PREDNISONE 20 MG TAB 446066 PREDNISONE Inactive Vital Signs Date Name Value [...] % 11.6-14.8 platelet count 182 10^3/MM^3 10*3/mm3 765-820 1994[birth year]08/08 erythrocyte (RBC) count 4.09 10^6/MM^3 10*6/mm3 4.04-5.48 hemoglobin, blood 13.4 g/dL 12.0-16.0 hematocrit, blood 39.2 % 36.0-46.0 mean corpuscular volume, RBC 96 fL 80-97 mean corpuscular hemoglobin, RBC 32.8 pg 27.0-31.2 Lab Report: Lipid Panel, Comp. Metabolic Panel, Magnesium - Chemistry blood glucose 89 mg/dL 65-110 chloride, serum 105 mmol/L 98-107 potassium, serum 3.7 mmol/L 3.5-5.2 carbon dioxide, venous blood 27.4 mmol/L 21.0-32.0 creatinine, serum 0.91 mg/dL 0.55-1.30 alanine aminotransferase (SGPT), serum 22 U/L 12-78 aspartate aminotransferase (SGOT), serum 21 U/L 15-37 calcium, serum 8.6 mg/dL 8.5-10.1 bilirubin, serum, total 0.40 mg/dL 0.00-1.00 urea nitrogen, blood 9 mg/dL 7-18 sodium, serum 142 mmol/L 419-054 6250/08/08 LDL cholesterol, serum 96 mg/dL 0-130 HDL cholesterol, serum 66 mg/dL 32-96 triglyceride, serum, fasting 92 mg/dL 30-200 cholesterol, serum 180 mg/dL 130-200 Lab Report: THEOPHYLLINE - Toxicology theophylline level, serum <2.5 mg/L ug/mL 10.0-20.0 Encounters Code Encounter Date Provider Facility CPT-73630 Level 3 Est. Patient 09:58:58 CDT Harinder Cr [facility] CPT-79636 Level 3 Est. Patient 12:37:21 CDT Harinder Hernandez [facility] CPT-90568 Level 3 Est. Patient 18:37:17 CDT Harinder Cr [facility] CPT-41196 Level 4 Est. Patient 11:15:54 CDT Nettie Newberry [facility] CPT-87997 Level 3 Est. Patient 16:42:24 CDT Harinder Hernandez [facility] CPT-06132 Level 3 Est. Patient 15:03:36 CDT Harinder Hernandez [facility] CPT-04541 Level 3 Est. Patient 15:03:20 CDT Harinder Hernandez [facility] CPT-67294 Level 3 Est. Patient 12:14:34 CDT Harinder Hernandez [facility] CPT-90434 Level 3 Est. Patient 13:47:15 CDT Harinder Hernandez [facility] CPT-38138 Level 3 Est. Patient 14:08:24 CDT Harinder Hernandez [facility] CPT-35765 Level 3 Est. Patient 10:07:15 CDT Harinder Hernandez [facility] CPT-78036 Level 3 Est. Patient 10:06:59 CDT Harinder Hernandez [facility] CPT-26996 Level 3 Est. Patient 15:53:29 CDT Jae Morgan [facility] CPT-95210 Level 3 Est. Patient 17:19:04 CDT Harinder Hernandez [facility] CPT-66545 Level 3 Est. Patient 11:13:01 CDT Harinder Hernandez [facility] CPT-55606 Level 3 Est. Patient 09:03:58 CDT Harinder Hernandez [facility] CPT-69187 Level 3 Est. Patient 14:46:45 SURVEYOR GEODETIC Harinder Hernandez [facility] CPT-20798 Level 3 Est. Patient 09:35:49 SURVEYOR GEODETIC Harinder Shaye Hernandez [facility] CPT-32485 Level 3 Est. Patient 09:29:37 SURVEYOR GEODETIC Harinder Cr David [facility] CPT-73447 Level 3 Est. Patient 15:51:07 CDT Harinder Hernandez [facility] CPT-80543 Level 3 Est. Patient 18:13:13 CDT Harinder Hernandez [facility] CPT-28894 Level 3 Est. Patient 10:44:19 CDT Harinder Hernandez [facility] CPT-21543 Level 4 Est. Patient 10:07:19 SURVEYOR GEODETIC Harinder Cr [facility] CPT-23605 Level 3 Est. Patient 15:59:32 SURVEYOR GEODETIC Harinder Cr [facility] Procedures Code Procedure Name Date Entry Date Standard Description CPT-TCMM Transitional Care Mgmt-Moderate 11:33:57 CDT CPT-39883 No Charge Offi Visit 14:11:29 CDT CPT-46335 Magnesium - LAB USE ONLY 10:45:44 CDT CPT-68081 Lipid - LAB USE ONLY 10:45:44 CDT CPT-11789 CBC - LAB USE ONLY 10:45:44 CDT CPT-60263 Venipuncture Draw Fee 10:45:43 CDT CPT-11916 Venipuncture Draw Fee 18:21:27 CDT CPT-JTINJ Asp/Joint Injection 18:38:04 CDT CPT-74298 Immunization Each Additional Inj 17:38:04 CDT CPT-90862 Immunization Single Admin 17:38:04 CDT CPT-51561 Prevnar 13 17:38:04 CDT CPT-18413 Fluzone Quadrivalent preservative free (>=3yrs.) 17:38: 04 CDT CPT-08337 No Charge Offi Visit 11:14:03 CDT CPT-45532 Chest 2V Frontal and Lat 14:00:18 CDT CPT-OV Office Visit 16:10:28 CDT CPT-JTINJ Asp/Joint Injection 09:03:57 CDT CPT-Cryo Cryotherapy 09:35:49 SURVEYOR GEODETIC CPT-JTINJ Asp/Joint Injection 09:34:45 SURVEYOR GEODETIC CPT-J2930 Solu Medrol 125 mg (Methyl Prednisolone Sodium Succinate) 20:37:27 CDT CPT-13079 Abx/Therapy Injection 20:37:27 CDT CPT-01037 Port a cath flush 08:15:51 CDT CPT-65986 Port a cath flush 09:54:16 CDT CPT-84031 Port a cath flush 09:38:02 CDT CPT-08433 Port a cath flush 11:00:27 SURVEYOR GEODETIC
--- OUTSIDE RECORDS SUMMARY | 2017-12-29 01:48 | XMS REPORT | Clinical Summary ---
Author Author Admin, QIE Organization [facility] Address Unknown Phone Unavailable Allergies, Adverse [...] Generic Name ND Status Provider Patient Instruction PREDNISONE 20 MG TAB 1 tab twice daily for 3 day, then one daily for three days PREDNISONE [id number] No Longer Active Harinder Hernandez DO Active PREDNISONE 20 MG TAB 1 tablet twice daily for 2 days, then 1 tablet once daily for 2 days PREDNISONE 28325461627 No Longer Active Harinder Hernandez DO Active ASMANEX 120 METERED DOSES 220 MCG/INH INH AEPB 2 puffs orally twice daily MOMETASONE FUROATE 50952736496 Active Jeri Sosa RPT,RMA Active NIFEDIPINE ER 30 MG ORAL [id number] 1 daily NIFEDIPINE 71133177369 Active Tawnya Pardo MA Active TOPIRAMATE 25 MG TABS 1 tab po BID TOPIRAMATE 70104697473 No Longer Active Nettie Newberry APRN Active AMLODIPINE BESYLATE 5 MG ORAL TABS Take 1 tab po daily AMLODIPINE BESYLATE 35685740176 No Longer Active Nettie Newberry APRN Active MECLIZINE HCL 25 MG TAB 1 tablet three times daily for 3 days, then 1/2 tab three times daily for 3 days. MECLIZINE HCL 88139154724 No Longer Active Nettie Newberry APRN Active AMITRIPTYLINE HCL 25 MG ORAL TABS 1 q hs prn AMITRIPTYLINE HCL 49250090304 No Longer Active Nettie Newberry APRN Active DILAUDID 2 MG ORAL TABS Take 1/2 tab po every 4 hours as needed for pain 2014 HYDROMORPHONE HCL 46726921234 No Longer Active Nettie Newberry APRN Active CLOPIDOGREL BISULFATE 75 MG ORAL TABS 1 tab by mouth once daily CLOPIDOGREL BISULFATE 74407006149 Active Tawnya Pardo MA Active ATORVASTATIN CALCIUM 10 MG ORAL TABS 1 at bedtime ATORVASTATIN CALCIUM 08544828002 Active Tawnya Pardo MA Active LOVASTATIN 40 MG ORAL TABS Take 1 tab po every hs LOVASTATIN 17006815350 No Longer Active Harinder Hernandez DO Active PREDNISONE 20 MG TAB 2 tabs daily for 4 days, 1 tab daily for 4 days, 1/2 tab daily for 4 days PREDNISONE 65046458455 No Longer Active Harinder Hernandez DO Active LEVAQUIN 500 MG ORAL TABS Take 1 tab po daily x 8 days LEVOFLOXACIN 22349864886 No Longer Active Harinder Hernandez DO Active VENTOLIN HFA 108 (90 BASE) MCG/ACT AERS 2 -4 puffs four times a day PRN 2013 ALBUTEROL SULFATE 41292072705 No Longer Active Jeri Sosa RPT,RMA Active ACEBUTOLOL HCL 200 MG CAPS 1 cap in the morning and 2 caps in the evening ACEBUTOLOL HCL 45275533826 No Longer Active Harinder Hernandez DO Active CEFDINIR 300 MG ORAL CAPS take 1 cap po bid x 10 days CEFDINIR 04694651624 No Longer Active Harinder Hernandez DO Active LOVASTATIN 40 MG TABS 1 pill by mouth nightly for cholesterol LOVASTATIN 27105168993 No Longer Active Nettie Newberry APRN Active NITROSTAT 0.4 MG SUBL 1 tab under tongueas needed for chest pain ( may take 3 total, 5 min apart, then call 911) NITROGLYCERIN 57650239277 No Longer Active Nettie Newberry APRN Active POTASSIUM CHLORIDE CR 10 MEQ CPCR 1 capsule by mouth daily 02/14 POTASSIUM CHLORIDE 67129429489 No Longer Active Nettie Newberry APRN Active TESSALON PERLES 100 MG CAP 1 to 2 tablets by mouth 3 times daily as needed for cough BENZONATATE 31431451103 No Longer Active Nettie Newberry APRN Active THEOPHYLLINE ER 200 MG ORAL [id number] Take 1 tab every 12 hours THEOPHYLLINE 53342410475 Active Tawnya Pardo MA Active PREDNISONE 20 MG TAB 2 po qd x 5 days PREDNISONE 29027711645 No Longer Active Jae Morgan MD Active AZITHROMYCIN 250 MG TABS 2 po qd x 1 day, then 1 po qd x 4 days AZITHROMYCIN 40142670598 No Longer Active Jae Morgan MD Active PREDNISONE 20 MG TAB 1 tab twice daily for 3 day, then one daily for three days PREDNISONE 11935125168 No Longer Active Jae oMrgan MD Active SINGULAIR 10 MG TABS 1 pill by mouth every evening for breathing. MONTELUKAST SODIUM 17281048941 Active Tawnya Pardo MA Active TYLENOL 325 MG TAB 3 by mouth q4h as needed ACETAMINOPHEN 79985231608 Active Harinder Hernandez DO Active POTASSIUM CHLORIDE ER 10 MEQ CR-TABS take 1 tab po daily POTASSIUM CHLORIDE 35371841149 No Longer Active Harinder Hernandez DO Active PREDNISONE 20 MG TAB 1 TID x 2 days, then 1 BID x 3 days, then 1 Daily x 3 days, then stop PREDNISONE 26017556314 No Longer Active Jillina Frazell BUYING INTERN Active LEVAQUIN 500 MG TAB 1 tablet by mouth daily LEVOFLOXACIN 64860974400 No Longer Active Jillina Frazell BUYING INTERN Active NEURONTIN 300 MG CAP 1 cap by mouth three times daily for restless leg 06/22 GABAPENTIN 52995361783 No Longer Active Harinder Hernandez DO Active BENZONATATE 100 MG CAPS 1 cap po TID PRN BENZONATATE 44582745127 No Longer Active Harinder Hernandez DO Active MONTELUKAST SODIUM 10 MG TABS 1 tab po in the evening MONTELUKAST SODIUM 61076429052 No Longer Active Harinder Hernandez DO Active MUPIROCIN 2 % OINT apply to affected area BID x 14 days MUPIROCIN 80307128261 No Longer Active Harinder Hernandez DO Active TYLENOL EXTRA STRENGTH 500 MG TABS as needed ACETAMINOPHEN 91965190830 No Longer Active Harinder Hernandez DO Active PREDNISONE 10 MG TABS 1 tab po daily PREDNISONE 27289924022 No Longer Active Harinder Hernandez DO Active PREDNISONE 20 MG TAB 2 tabs daily for 4 days, 1 tab daily for 4 days, 1/2 tab daily for 4 days PREDNISONE 72927087602 No Longer Active Harinder Hernandez DO Active AZITHROMYCIN 250 MG TABS 2 po qd x 1 day, then 1 po qd x 4 days AZITHROMYCIN 99503563122 No Longer Active Harinder Hernandez DO Active PREDNISONE 20 MG TAB 3 tabs today, then 1 tab twice daily for 3 day, then one daily for three days PREDNISONE 21998561081 No Longer Active Harinder Hernandez DO Active NIFEDIAC CC 30 MG [id number] 1 tablet daily for raynaud's syndrome NIFEDIPINE 99180972492 No Longer Active Tawnya Pardo MA Active AMBIEN 10 MG TAB 1/2 tab by mouth at bedtime as needed for sleep ZOLPIDEM TARTRATE 74750795823 Active Harinder Hernandez DO Active CLONAZEPAM 1 MG TABS 1 tablet at bedtime for insomnia and restless legs 09/14 CLONAZEPAM 58478734598 Active Tawnya Pardo MA Active CLONAZEPAM 0.5 MG TABS 1 tab po daily CLONAZEPAM 29477162508 No Longer Active Harinder Hernandez DO Active PREDNISONE 10 MG TAB 1 tablet daily for COPD PREDNISONE 78718146600 Active Tawnya Pardo MA Active PROAIR HFA 108 (90 BASE) MCG/ACT AERS 2 puffs four times a day as needed 2012 ALBUTEROL SULFATE 58043707250 Active Tawnya Pardo MA Active FLOVENT HFA 110 MCG/ACT AERO 2 puffs inhaled b.i.d. FLUTICASONE PROPIONATE HFA 76249682722 Active Tawnya Pardo MA Active EPIPEN 0.3 MG/0.3ML URIEL DIRECTED EPINEPHRINE Active Jeri Sosa RPT,RMA Active ACIPHEX 20 MG TBEC 1 tab po daily RABEPRAZOLE SODIUM 86741335114 Active Tawnya Pardo MA Active CLONAZEPAM 0.5 MG TABS 1 tab po daily CLONAZEPAM 0.5 MG TABS 589658 CLONAZEPAM Inactive PREDNISONE 20 MG TAB 3 tabs today, then 1 tab twice daily for 3 day, then one daily for three days PREDNISONE 20 MG TAB 498188 PREDNISONE Inactive PREDNISONE 20 MG TAB 2 tabs daily for 4 days, 1 tab daily for 4 days, 1/2 tab daily for 4 days PREDNISONE 20 MG TAB 596812 PREDNISONE Inactive PREDNISONE 10 MG TABS 1 tab po daily PREDNISONE 10 MG TABS 522287 PREDNISONE Inactive TYLENOL EXTRA STRENGTH 500 MG TABS as needed TYLENOL EXTRA STRENGTH 500 MG TABS 675547 ACETAMINOPHEN Inactive MUPIROCIN 2 % OINT apply to affected area BID x 14 days MUPIROCIN 2 % OINT 522054 MUPIROCIN Inactive MONTELUKAST SODIUM 10 MG TABS 1 tab po in the evening MONTELUKAST SODIUM 10 MG TABS 549227 MONTELUKAST SODIUM Inactive BENZONATATE 100 MG CAPS 1 cap po TID PRN BENZONATATE 100 MG CAPS 368556 BENZONATATE Inactive NEURONTIN 300 MG CAP 1 cap by mouth three times daily for restless leg 06/22 NEURONTIN 300 MG CAP 246490 GABAPENTIN Inactive LEVAQUIN 500 MG TAB 1 tablet by mouth daily LEVAQUIN 500 MG TAB 930209 LEVOFLOXACIN Inactive PREDNISONE 20 MG TAB 1 TID x 2 days, then 1 BID x 3 days, then 1 Daily x 3 days, then stop PREDNISONE 20 MG TAB 102261 PREDNISONE Inactive POTASSIUM CHLORIDE ER 10 MEQ CR-TABS take 1 tab po daily POTASSIUM CHLORIDE ER 10 MEQ CR-TABS POTASSIUM CHLORIDE Inactive PREDNISONE 20 MG TAB 1 tab twice daily for 3 day, then one daily for three days PREDNISONE 20 MG TAB 768141 PREDNISONE Inactive TESSALON PERLES 100 MG CAP 1 to 2 tablets by mouth 3 times daily as needed for cough TESSALON PERLES 100 MG CAP 461783 BENZONATATE Inactive POTASSIUM CHLORIDE CR 10 MEQ [...] nightly for cholesterol LOVASTATIN 40 MG TABS 601470 LOVASTATIN Inactive CEFDINIR 300 MG ORAL CAPS take 1 cap po bid x 10 days CEFDINIR 300 MG ORAL CAPS 400455 CEFDINIR Inactive ACEBUTOLOL HCL 200 MG CAPS 1 cap in the morning and 2 caps in the evening ACEBUTOLOL HCL 200 MG CAPS 441851 ACEBUTOLOL HCL Inactive VENTOLIN HFA 108 (90 BASE) MCG/ACT AERS 2 -4 puffs four times a day PRN 2013 VENTOLIN HFA 108 (90 BASE) MCG/ACT AERS ALBUTEROL SULFATE Inactive LEVAQUIN 500 MG ORAL TABS Take 1 tab po daily x 8 days LEVAQUIN 500 MG ORAL TABS 387538 LEVOFLOXACIN Inactive PREDNISONE 20 MG TAB 2 tabs daily for 4 days, 1 tab daily for 4 days, 1/2 tab daily for 4 days PREDNISONE 20 MG TAB 177166 PREDNISONE Inactive LOVASTATIN 40 MG ORAL TABS Take 1 tab po every hs LOVASTATIN 40 MG ORAL TABS 312906 LOVASTATIN Inactive DILAUDID 2 MG ORAL TABS Take 1/2 tab po every 4 hours as needed for pain 2014 DILAUDID 2 MG ORAL TABS 315381 HYDROMORPHONE HCL Inactive AMITRIPTYLINE HCL 25 MG ORAL TABS 1 q hs prn AMITRIPTYLINE HCL 25 MG ORAL TABS 661362 AMITRIPTYLINE HCL Inactive MECLIZINE HCL 25 MG TAB 1 tablet three times daily for 3 days, then 1/2 tab three times daily for 3 days. MECLIZINE HCL 25 MG TAB 956380 MECLIZINE HCL Inactive AMLODIPINE BESYLATE 5 MG ORAL TABS Take 1 tab po daily AMLODIPINE BESYLATE 5 MG ORAL TABS 469996 AMLODIPINE BESYLATE Inactive TOPIRAMATE 25 MG TABS 1 tab po BID TOPIRAMATE 25 MG TABS 852762 TOPIRAMATE Inactive PREDNISONE 20 MG TAB 1 tablet twice daily for 2 days, then 1 tablet once daily for 2 days PREDNISONE 20 MG TAB 601367 PREDNISONE Inactive PREDNISONE 20 MG TAB 1 tab twice daily for 3 day, then one daily for three days PREDNISONE 20 MG TAB 239354 PREDNISONE Inactive AZITHROMYCIN 250 MG TABS 2 po qd x 1 day, then 1 po qd x 4 days AZITHROMYCIN 250 MG TABS 3181495 AZITHROMYCIN Inactive AZITHROMYCIN 250 MG TABS 2 po qd x 1 day, then 1 po qd x 4 days AZITHROMYCIN 250 MG TABS 3385789 AZITHROMYCIN Inactive PREDNISONE 20 MG TAB 2 po qd x 5 days PREDNISONE 20 MG TAB 543888 PREDNISONE Inactive Vital Signs Date Name Value [...] Panel - Chemistry sodium, serum 138 mmol/L 496-160 2421/09/24 potassium, serum 3.5 mmol/L 3.5-5.2 chloride, serum [...] Magnesium - Chemistry cholesterol, serum 180 mg/dL 882-806 9573/08/08 triglyceride, serum, fasting 92 mg/dL 30-200 HDL cholesterol, serum 66 mg/dL 32-96 LDL cholesterol, serum 96 mg/dL 0-130 sodium, serum 142 mmol/L 845-235 6528/08/08 carbon dioxide, venous blood 27.4 mmol/L 21.0-32.0 [...] 10.0-20.0 Encounters Code Encounter Date Provider Facility CPT-24741 Level 3 Est. Patient 09:58:58 CDT Harinder Cr [facility] CPT-39346 Level 3 Est. Patient 12:37:21 CDT Harinder Shaye [facility] CPT-77573 Level 3 Est. Patient 18:37:17 CDT Harinder Shaye [facility] CPT-63093 Level 4 Est. Patient 11:15:54 CDT Nettie Newberry [facility] CPT-80385 Level 3 Est. Patient 16:42:24 CDT Harinder Cr [facility] CPT-52446 Level 3 Est. Patient 15:03:36 CDT Harinder Cr [facility] CPT-57632 Level 3 Est. Patient 15:03:20 CDT Harinder Cr [facility] CPT-63041 Level 3 Est. Patient 12:14:34 CDT Harinder Shaye [facility] CPT-17380 Level 3 Est. Patient 13:47:15 CDT Harinder Shaye [facility] CPT-33646 Level 3 Est. Patient 14:08:24 CDT Harinder Cr [facility] CPT-15581 Level 3 Est. Patient 10:07:15 CDT Harinder Shaye [facility] CPT-83786 Level 3 Est. Patient 10:06:59 CDT Harinder Cr [facility] CPT-60951 Level 3 Est. Patient 15:53:29 CDT Jae Morgan MD [facility] CPT-76741 Level 3 Est. Patient 17:19:04 CDT Harinder Hernandez [facility] CPT-43054 Level 3 Est. Patient 11:13:01 CDT Harinder Hernandez [facility] CPT-26206 Level 3 Est. Patient 09:03:58 CDT Harinder Hernandez [facility] CPT-19543 Level 3 Est. 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 Patient 09:35:49 DIELECTRIC TESTING MACHINE OPERATOR Harinder Hernandez [facility] CPT-00610 Level 3 Est. Patient 09:29:37 DIELECTRIC TESTING MACHINE OPERATOR Harinder Hernandez [facility] CPT-68725 Level 3 Est. Patient 15:51:07 CDT Harinder Hernandez [facility] CPT-79950 Level 3 Est. Patient 18:13:13 CDT Harinder Cr [facility] CPT-07262 Level 3 Est. Patient 10:44:19 CDT Harinder Hernandez [facility] CPT-87714 Level 4 Est. Patient 10:07:19 DIELECTRIC TESTING MACHINE OPERATOR Harinder Cr [facility] CPT-13185 Level 3 Est. Patient 15:59:32 DIELECTRIC TESTING MACHINE OPERATOR Harinder Shaye [facility] Procedures Code Procedure Name Date Entry Date Standard Description CPT-TCMM Transitional Care Mgmt-Moderate 11:33:57 CDT CPT-56046 No Charge Offi Visit 14:11:29 CDT CPT-44028 Magnesium - LAB USE ONLY 10:45:44 CDT CPT-82042 Lipid - LAB USE ONLY 10:45:44 CDT CPT-44874 CBC - LAB USE ONLY 10:45:44 CDT CPT-10224 Venipuncture Draw Fee 10:45:43 CDT CPT-17377 Venipuncture Draw Fee 18:21:27 CDT CPT-JTINJ Asp/Joint Injection 18:38:04 CDT CPT-71233 Immunization Each Additional Inj 17:38:04 CDT CPT-04457 Immunization Single Admin 17:38:04 CDT CPT-83582 Prevnar 13 17:38:04 CDT CPT-39858 Fluzone Quadrivalent preservative free (>=3yrs.) 17:38: 04 CDT CPT-28902 No Charge Offi Visit 11:14:03 CDT CPT-99443 Chest 2V Frontal and Lat 14:00:18 CDT CPT-OV Office Visit 16:10:28 CDT CPT-JTINJ Asp/Joint Injection 09:03:57 CDT CPT-Cryo Cryotherapy 09:35:49 DIELECTRIC TESTING MACHINE OPERATOR CPT-JTINJ Asp/Joint Injection 09:34:45 DIELECTRIC TESTING MACHINE OPERATOR CPT-J2930 Solu Medrol 125 mg (Methyl Prednisolone Sodium Succinate) 20:37:27 CDT CPT-72317 Abx/Therapy Injection 20:37:27 CDT CPT-32658 Port a cath flush 08:15:51 CDT CPT-36945 Port a cath flush 09:54:16 CDT CPT-70651 Port a cath flush 09:38:02 CDT CPT-08843 Port a cath flush 11:00:27 DIELECTRIC TESTING MACHINE OPERATOR
--- OUTSIDE RECORDS SUMMARY | 2017-12-29 01:49 | XMS REPORT | Clinical Summary ---
Author Author Admin, QIE Organization [facility] [employer] Address Unknown Phone Unavailable Allergies, Adverse Reactions, [...] Active Harinder Hernandez DO VALIUM Critical Active Hrainder Hernandez DO DEMEROL Critical Active Harinder Hernandez [...] tab SL q5min PRN chest pain NITROGLYCERIN 19418333230 Active Meenu Alejo LPN Active THEOPHYLLINE ER 300 MG ORAL TABLET EXTENDED RELEASE 12 HOUR 1 po BID THEOPHYLLINE 29349764093 Active Kortney Mccain Active POTASSIUM CHLORIDE ER 20 MEQ ORAL TABLET EXTENDED RELEASE 1 po q day POTASSIUM CHLORIDE 84792865011 Active Kortney Mccain Active POTASSIUM CHLORIDE 20 MEQ ORAL PACKET 1 tab po q day POTASSIUM CHLORIDE 74333809263 No Longer Active Kortney Mccain Active POTASSIUM CHLORIDE ER 10 MEQ ORAL CAPSULE EXTENDED RELEASE 1 capsule BID 2016 POTASSIUM CHLORIDE 93193912551 No Longer Active Kortney Mccain Active LASIX 20 MG ORAL TABLET 1 tablet by mouth every morning FUROSEMIDE 69580636382 No Longer Active Kortney Mccain Active SPIRONOLACTONE 25 MG ORAL TABLET 1 tablet by mouth daily SPIRONOLACTONE 09444470221 Active Kortney Mccain Active FLUOXETINE HCL 10 MG ORAL CAPSULE 1 po qd for depression/anxiety FLUOXETINE HCL 69521998665 Active Harinder Hernandez DO Active VOLTAREN 1 % TRANSDERMAL GEL apply q 6-8 hour to left arm as needed for pain DICLOFENAC SODIUM 19357676913 Active Kortney Mccain Active ALBUTEROL SULFATE (2.5 MG/3ML) 0.083% INHALATION NEBULIZATION SOLUTION 1 vial neb q 4hrs for severe asthma. 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 NIFEDIPINE 69897652600 Active Kortney Mccain Active AMLODIPINE BESYLATE 5 MG ORAL TABLET 1 tablet by mouth daily 2016 AMLODIPINE BESYLATE 44190688763 No Longer Active Harinder Hernandez DO Active TOPAMAX 25 MG ORAL TABLET 1 tab po BID TOPIRAMATE 55434342736 Active Kortney Mccain Active FLUTICASONE PROPIONATE 50 MCG/ACT NASAL SUSPENSION 2 sprays per nostril daily PRN Allergies FLUTICASONE PROPIONATE 79749110616 Active Meenu Alejo LPN Active NIFEDIPINE ER 30 MG ORAL TABLET EXTENDED RELEASE 24 HOUR 1 daily NIFEDIPINE 65111585369 No Longer Active Harinder Hernandez DO Active FLOVENT HFA 110 MCG/ACT INHALATION AEROSOL 2 puffs inhaled b.i.d. FLUTICASONE PROPIONATE HFA 29796803556 Active Harinder Hernandez DO Active EPIPEN 2-BRUNA 0.3 MG/0.3ML INJECTION SOLUTION AUTO-INJECTOR 1 INJ NEEDED EPINEPHRINE 95554360661 Active Kortney Mccain Active PREDNISONE 20 MG ORAL TABLET 1 tab twice daily for 3 day, then one daily for three days PREDNISONE 26482728465 No Longer Active Harinder Hernandez DO Active PREDNISONE 20 MG ORAL TABLET 1 tablet twice daily for 2 days, then 1 tablet once daily for 2 days PREDNISONE 06928124837 No Longer Active Harinder Hernandez DO Active ASMANEX 120 METERED DOSES 220 MCG/INH INHALATION AEROSOL POWDER BREATH ACTIVATED 2 puffs orally twice daily MOMETASONE FUROATE 46970459242 Active Jeri Sosa LPN Active TOPIRAMATE 25 MG ORAL TABLET 1 tab po BID TOPIRAMATE 18179387667 No Longer Active Nettie Newberry APRN Active AMLODIPINE BESYLATE 5 MG ORAL TABLET Take 1 tab po daily AMLODIPINE BESYLATE 10806314619 No Longer Active Nettie Newberry APRN Active MECLIZINE HCL 25 MG ORAL TABLET 1 tablet three times daily for 3 days, then 1/ 2 tab three times daily for 3 days. MECLIZINE HCL 33392620648 No Longer Active Nettie Newberry APRN Active AMITRIPTYLINE HCL 25 MG ORAL TABLET 1 q hs prn AMITRIPTYLINE HCL 25070362018 No Longer Active Nettie Newberry APRN Active DILAUDID 2 MG ORAL TABLET Take 1/2 tab po every 4 hours as needed for pain HYDROMORPHONE HCL 11183868314 No Longer Active Nettie Newberry APRN Active CLOPIDOGREL BISULFATE 75 MG ORAL TABLET 1 tab by mouth once daily CLOPIDOGREL BISULFATE 08223650807 Active Meenu Alejo LPN Active ATORVASTATIN CALCIUM 10 MG ORAL TABLET 1 at bedtime ATORVASTATIN CALCIUM 23635392949 Active Kortney Mccain Active LOVASTATIN 40 MG ORAL TABLET Take 1 tab po every hs LOVASTATIN 67618546393 No Longer Active Harinder Hernandez DO Active PREDNISONE 20 MG ORAL TABLET 2 tabs daily for 4 days, 1 tab daily for 4 days, 1/2 tab daily for 4 days PREDNISONE 10655920241 No Longer Active Harinder Hernandez DO Active LEVAQUIN 500 MG ORAL TABLET Take 1 tab po daily x 8 days LEVOFLOXACIN 15896994451 No Longer Active Harinder Hernandez DO Active VENTOLIN HFA 108 (90 Base) MCG/ACT INHALATION AEROSOL SOLUTION 2 -4 puffs four times a day PRN ALBUTEROL SULFATE 58897092592 No Longer Active Jeri Sosa LPN Active ACEBUTOLOL HCL 200 MG ORAL CAPSULE 1 cap in the morning and 2 caps in the evening ACEBUTOLOL HCL 16779956223 No Longer Active Harinder Hernandez DO Active CEFDINIR 300 MG ORAL CAPSULE take 1 cap po bid x 10 days CEFDINIR 18329067713 No Longer Active Harinder Hernandez DO Active LOVASTATIN 40 MG ORAL TABLET 1 pill by mouth nightly for cholesterol LOVASTATIN 07377541153 No Longer Active Nettie Newberry APRN Active NITROSTAT 0.4 MG SUBLINGUAL TABLET SUBLINGUAL 1 tab under tongueas needed for chest pain ( may take 3 total, 5 min apart, then call 911) NITROGLYCERIN 34390178491 No Longer Active Nettie Newberry APRN Active POTASSIUM CHLORIDE ER 10 MEQ ORAL CAPSULE EXTENDED RELEASE 1 capsule by mouth daily POTASSIUM CHLORIDE 66417739651 No Longer Active Nettie Newberry APRN Active TESSALON PERLES 100 MG ORAL CAPSULE 1 to 2 tablets by mouth 3 times daily as needed for cough BENZONATATE 85123376951 No Longer Active Nettie Newberry APRN Active PREDNISONE 20 MG ORAL TABLET 2 po qd x 5 days PREDNISONE 10465347565 No Longer Active Jae Morgan MD Active AZITHROMYCIN 250 MG ORAL TABLET 2 po qd x 1 day, then 1 po qd x 4 days 12/30 AZITHROMYCIN 98831590931 No Longer Active Jae Morgan MD Active PREDNISONE 20 MG ORAL TABLET 1 tab twice daily for 3 day, then one daily for three days PREDNISONE 66275340362 No Longer Active Jae Morgan MD Active SINGULAIR 10 MG ORAL TABLET 1 pill by mouth every evening for breathing. 2014 MONTELUKAST SODIUM 88304586469 Active Meenu Alejo LPN Active TYLENOL 325 MG ORAL TABLET 3 by mouth q4h as needed ACETAMINOPHEN 45919229041 Active Harinder Hernandez DO Active POTASSIUM CHLORIDE ER 10 MEQ ORAL TABLET EXTENDED RELEASE take 1 tab po daily POTASSIUM CHLORIDE 02425972192 No Longer Active Harinder Hernandez DO Active PREDNISONE 20 MG ORAL TABLET 1 TID x 2 days, then 1 BID x 3 days, then 1 Daily x 3 days, then stop PREDNISONE 54982338326 No Longer Active John Montemayor APRN Active LEVAQUIN 500 MG ORAL TABLET 1 tablet by mouth daily LEVOFLOXACIN 02975281816 No Longer Active Derrickllkvng Montemayor APRN Active NEURONTIN 300 MG ORAL CAPSULE 1 cap by mouth three times daily for restless leg GABAPENTIN 97974343157 No Longer Active Harinder Hernandez DO Active BENZONATATE 100 MG ORAL CAPSULE 1 cap po TID PRN BENZONATATE 28433105742 No Longer Active Harinder Hernandez DO Active MONTELUKAST SODIUM 10 MG ORAL TABLET 1 tab po in the evening 2014 MONTELUKAST SODIUM 54432380147 No Longer Active Harinder Hernandez DO Active MUPIROCIN 2 % EXTERNAL OINTMENT apply to affected area BID x 14 days MUPIROCIN 78066270538 No Longer Active Harinder Hernandez DO Active TYLENOL EXTRA STRENGTH 500 MG ORAL TABLET as needed ACETAMINOPHEN 50217715858 No Longer Active Harinder Hernandez DO Active PREDNISONE 10 MG ORAL TABLET 1 tab po daily PREDNISONE 12823038107 No Longer Active Harinder Hernandez DO Active PREDNISONE 20 MG ORAL TABLET 2 tabs daily for 4 days, 1 tab daily for 4 days, 1/2 tab daily for 4 days PREDNISONE 45707966431 No Longer Active Harinder Hernandez DO Active AZITHROMYCIN 250 MG ORAL TABLET 2 po qd x 1 day, then 1 po qd x 4 days 04/06 AZITHROMYCIN 28688841445 No Longer Active Harinder Heranndez DO Active PREDNISONE 20 MG ORAL TABLET 3 tabs today, then 1 tab twice daily for 3 day, then one daily for three days PREDNISONE 91900331590 No Longer Active Harinder Hernandez DO Active NIFEDIAC CC 30 MG ORAL TABLET EXTENDED RELEASE 24 HOUR 1 tablet daily for raynaud's syndrome NIFEDIPINE 10425033784 No Longer Active Tawnya Pardo MA Active AMBIEN 10 MG ORAL TABLET 1/2 tab by mouth at bedtime as needed for sleep 2013 ZOLPIDEM TARTRATE 00891802615 Active Meenu Melo CHEN Active CLONAZEPAM 1 MG ORAL TABLET 1 tablet at bedtime for insomnia and restless legs CLONAZEPAM 32314410664 Active Harinder Hernandez DO Active CLONAZEPAM 0.5 MG ORAL TABLET 1 tab po daily CLONAZEPAM 73621923645 No Longer Active Harinder Hernandez DO Active PREDNISONE 10 MG ORAL TABLET 1 tablet daily for COPD PREDNISONE 66660749806 Active Kortney Mccain Active PROAIR HFA 108 (90 Base) MCG/ACT INHALATION AEROSOL SOLUTION 2 puffs four times a day as needed ALBUTEROL SULFATE 22103995243 Active Harinder Hernandez DO Active FLOVENT HFA 110 MCG/ACT INHALATION AEROSOL 2 puffs inhaled b.i.d. FLUTICASONE PROPIONATE HFA 39849482455 Active Kortney Mccain Active ACIPHEX 20 MG ORAL TABLET DELAYED RELEASE 1 tab po daily RABEPRAZOLE SODIUM 43192660204 Active Kaylah Newberry Active CLONAZEPAM 0.5 MG ORAL TABLET 1 tab po daily CLONAZEPAM 0.5 MG ORAL TABLET 957546 CLONAZEPAM Inactive PREDNISONE 20 MG ORAL TABLET 3 tabs today, then 1 tab twice daily for 3 day, then one daily for three days PREDNISONE 20 MG ORAL TABLET 283026 PREDNISONE Inactive PREDNISONE 20 MG ORAL TABLET 2 tabs daily for 4 days, 1 tab daily for 4 days, 1/2 tab daily for 4 days PREDNISONE 20 MG ORAL TABLET 643376 PREDNISONE Inactive PREDNISONE 10 MG ORAL TABLET 1 tab po daily PREDNISONE 10 MG ORAL TABLET 936327 PREDNISONE Inactive TYLENOL EXTRA STRENGTH 500 MG ORAL TABLET as needed TYLENOL EXTRA STRENGTH 500 MG ORAL TABLET 387031 ACETAMINOPHEN Inactive MUPIROCIN 2 % EXTERNAL OINTMENT apply to affected area BID x 14 days MUPIROCIN 2 % EXTERNAL OINTMENT 371781 MUPIROCIN Inactive MONTELUKAST SODIUM 10 MG ORAL TABLET 1 tab po in the evening 2014 MONTELUKAST SODIUM 10 MG ORAL TABLET 951611 MONTELUKAST SODIUM Inactive BENZONATATE 100 MG ORAL CAPSULE 1 cap po TID PRN BENZONATATE 100 MG ORAL CAPSULE 157302 BENZONATATE Inactive NEURONTIN 300 MG ORAL CAPSULE 1 cap by mouth three times daily for restless leg NEURONTIN 300 MG ORAL CAPSULE 930857 GABAPENTIN Inactive LEVAQUIN 500 MG ORAL TABLET 1 tablet by mouth daily LEVAQUIN 500 MG ORAL TABLET 506096 LEVOFLOXACIN Inactive PREDNISONE 20 MG ORAL TABLET 1 TID x 2 days, then 1 BID x 3 days, then 1 Daily x 3 days, then stop PREDNISONE 20 MG ORAL TABLET 442405 PREDNISONE Inactive POTASSIUM CHLORIDE ER 10 MEQ ORAL TABLET EXTENDED RELEASE take 1 tab po daily POTASSIUM CHLORIDE ER 10 MEQ ORAL TABLET EXTENDED RELEASE POTASSIUM CHLORIDE Inactive PREDNISONE 20 MG ORAL TABLET 1 tab twice daily for 3 day, then one daily for three days PREDNISONE 20 MG ORAL TABLET 414112 PREDNISONE Inactive TESSALON PERLES 100 MG ORAL CAPSULE 1 to 2 tablets by mouth 3 times daily as needed for cough TESSALON PERLES 100 MG ORAL CAPSULE 195763 BENZONATATE Inactive POTASSIUM CHLORIDE ER 10 MEQ ORAL CAPSULE EXTENDED RELEASE 1 capsule by mouth daily POTASSIUM CHLORIDE ER 10 MEQ ORAL CAPSULE EXTENDED RELEASE POTASSIUM CHLORIDE Inactive NITROSTAT 0.4 MG SUBLINGUAL TABLET SUBLINGUAL 1 tab under tongueas needed for chest pain ( may take 3 total, 5 min apart, then call 911) NITROSTAT 0.4 MG SUBLINGUAL TABLET SUBLINGUAL 941174 NITROGLYCERIN Inactive LOVASTATIN 40 MG ORAL TABLET 1 pill by mouth nightly for cholesterol LOVASTATIN 40 MG ORAL TABLET 027372 LOVASTATIN Inactive CEFDINIR 300 MG ORAL CAPSULE take 1 cap po bid x 10 days CEFDINIR 300 MG ORAL CAPSULE 757442 CEFDINIR Inactive ACEBUTOLOL HCL 200 MG ORAL CAPSULE 1 cap in the morning and 2 caps in the evening ACEBUTOLOL HCL 200 MG ORAL CAPSULE 889312 ACEBUTOLOL HCL Inactive VENTOLIN HFA 108 (90 Base) MCG/ACT INHALATION AEROSOL SOLUTION 2 -4 puffs four times a day PRN VENTOLIN HFA 108 (90 Base) MCG/ ACT INHALATION AEROSOL SOLUTION ALBUTEROL SULFATE Inactive LEVAQUIN 500 MG ORAL TABLET Take 1 tab po daily x 8 days LEVAQUIN 500 MG ORAL TABLET 631376 LEVOFLOXACIN Inactive PREDNISONE 20 MG ORAL TABLET 2 tabs daily for 4 days, 1 tab daily for 4 days, 1/2 tab daily for 4 days PREDNISONE 20 MG ORAL TABLET 661845 PREDNISONE Inactive LOVASTATIN 40 MG ORAL TABLET Take 1 tab po every hs LOVASTATIN 40 MG ORAL TABLET 823658 LOVASTATIN Inactive DILAUDID 2 MG ORAL TABLET Take 1/2 tab po every 4 hours as needed for pain DILAUDID 2 MG ORAL TABLET 924591 HYDROMORPHONE HCL Inactive AMITRIPTYLINE HCL 25 MG ORAL TABLET 1 q hs prn AMITRIPTYLINE HCL 25 MG ORAL TABLET 094464 AMITRIPTYLINE HCL Inactive MECLIZINE HCL 25 MG ORAL TABLET 1 tablet three times daily for 3 days, then 1/ 2 tab three times daily for 3 days. MECLIZINE HCL 25 MG ORAL TABLET 849384 MECLIZINE HCL Inactive AMLODIPINE BESYLATE 5 MG ORAL TABLET Take 1 tab po daily AMLODIPINE BESYLATE 5 MG ORAL TABLET 614294 AMLODIPINE BESYLATE Inactive TOPIRAMATE 25 MG ORAL TABLET 1 tab po BID TOPIRAMATE 25 MG ORAL TABLET 047857 TOPIRAMATE Inactive PREDNISONE 20 MG ORAL TABLET 1 tablet twice daily for 2 days, then 1 tablet once daily for 2 days PREDNISONE 20 MG ORAL TABLET 479432 PREDNISONE Inactive PREDNISONE 20 MG ORAL TABLET 1 tab twice daily for 3 day, then one daily for three days PREDNISONE 20 MG ORAL TABLET 377180 PREDNISONE Inactive NIFEDIPINE ER 30 MG ORAL TABLET EXTENDED RELEASE 24 HOUR 1 daily NIFEDIPINE ER 30 MG ORAL TABLET EXTENDED RELEASE 24 HOUR NIFEDIPINE Inactive AMLODIPINE BESYLATE 5 MG ORAL TABLET 1 tablet by mouth daily 2016 AMLODIPINE BESYLATE 5 MG ORAL TABLET 632416 AMLODIPINE BESYLATE Inactive LASIX 20 MG ORAL TABLET 1 tablet by mouth every morning LASIX 20 MG ORAL TABLET 363252 FUROSEMIDE Inactive POTASSIUM CHLORIDE ER 10 MEQ ORAL CAPSULE EXTENDED RELEASE 1 capsule BID 2016 POTASSIUM CHLORIDE ER 10 MEQ ORAL CAPSULE EXTENDED RELEASE POTASSIUM CHLORIDE Inactive POTASSIUM CHLORIDE 20 MEQ ORAL PACKET 1 tab po q day POTASSIUM CHLORIDE 20 MEQ ORAL PACKET 7959962 POTASSIUM CHLORIDE Inactive AZITHROMYCIN 250 MG ORAL TABLET 2 po qd x 1 day, then 1 po qd x 4 days 04/06 AZITHROMYCIN 250 MG ORAL TABLET 572383 AZITHROMYCIN Inactive AZITHROMYCIN 250 MG ORAL TABLET 2 po qd x 1 day, then 1 po qd x 4 days 12/30 AZITHROMYCIN 250 MG ORAL TABLET 623451 AZITHROMYCIN Inactive PREDNISONE 20 MG ORAL TABLET 2 po qd x 5 days PREDNISONE 20 MG ORAL TABLET 596988 PREDNISONE Inactive Vital Signs Date Name Value [...] Panel - Chemistry sodium, serum 140 mmol/L 327-950 8259/07/13 potassium, serum 3.2 mmol/L 3.5-5.2 chloride, serum 103 mmol/L 98-107 carbon dioxide, venous blood 26.9 mmol/L 21.0-32.0 blood glucose 93 mg/dL 65-110 calcium, serum 9.2 mg/dL 8.5-10.1 urea nitrogen, blood 13 mg/dL 7-18 creatinine, serum 0.84 mg/dL 0.60-1.30 sodium, serum 140 mmol/L 856-701 2897/08/21 potassium, serum 3.8 mmol/L 3.5-5.2 chloride, serum [...] ... - Chemistry sodium, serum 141 mmol/L 936-398 0892/08/07 carbon dioxide, venous blood 34.0 mmol/L 21.0-32.0 [...] 1.40 mg/dL 0.00-1.00 cholesterol, serum 192 mg/dL 859-549 9480/10/19 triglyceride, serum, fasting 71 mg/dL 30-200 HDL cholesterol, serum 72 mg/dL 32-60 LDL cholesterol, serum 106 mg/dL 0-130 Lab Report: THEOPHYLLINE - Toxicology theophylline level, serum 3.1 ug/mL 10.0-20.0 Encounters Code Encounter Date Provider Facility CPT-67916 Level 4 Est. Patient 14:45:25 CDT [facility] CPT-13182 Level 4 Est. Patient 09:15:13 CDT Harinder [facility] CPT-32405 Level 3 Est. Patient 11:51:58 CDT [facility] CPT-39269 Level 3 Est. Patient 11:30:05 CDT Harinder [facility] CPT-44704 Level 4 Est. Patient 10:19:23 CDT Harinder [facility] CPT-91327 Level 3 Est. Patient 09:58:58 CDT [facility] CPT-39239 Level 3 Est. Patient 12:37:21 CDT [facility] CPT-17068 Level 3 Est. Patient 18:37:17 CDT [facility] CPT-73361 Level 4 Est. Patient 11:15:54 CDT Nettie Newberry APRN [facility] CPT-02902 Level 3 Est. Patient 16:42:24 CDT Harinder Hernandez [facility] CPT-61133 Level 3 Est. Patient 15:03:36 CDT Harinder Hernandez [facility] CPT-62604 Level 3 Est. Patient 15:03:20 CDT Harinder Cr David [facility] CPT-59382 Level 3 Est. Patient 12:14:34 CDT Harinder Hernandez [facility] CPT-63210 Level 3 Est. Patient 13:47:15 CDT Harinder Cr [facility] CPT-18606 Level 3 Est. Patient 14:08:24 CDT Harinder Shaye Hernandez [facility] CPT-46854 Level 3 Est. Patient 10:07:15 CDT Harinder Hernandez [facility] CPT-59207 Level 3 Est. Patient 10:06:59 CDT Harinder Hernandez [facility] CPT-82671 Level 3 Est. Patient 15:53:29 CDT Jae Morgan MD [facility] CPT-27574 Level 3 Est. Patient 17:19:04 CDT Harinder Hernandez [facility] CPT-07144 Level 3 Est. Patient 11:13:01 CDT Harinder [facility] CPT-43661 Level 3 Est. Patient 09:03:58 CDT Harinder Cr [facility] CPT-99931 Level 3 Est. Patient 14:46:45 [employer]OLEN [employer] Harinder [facility] CPT-44761 Level 3 Est. Patient 09:35:49 [employer] Harinder Hernandez [facility] CPT-49999 Level 3 Est. Patient 09:29:37 WOOLEN TE[employer] Harinder Hernandez [facility] CPT-63436 Level 3 Est. Patient 15:51:07 CDT Harinder Hernandez [facility] CPT-75101 Level 3 Est. Patient 18:13:13 CDT Harinder Hernandez [facility] CPT-14716 Level 3 Est. Patient 10:44:19 CDT Harinder Hernandez [facility] CPT-02195 Level 4 Est. Patient 10:07:19 WOOLEN TESTER Harinder Hernandez [facility] CPT-70170 Level 3 Est. Patient 15:59:32 WOOLEN TE[employer] Harinder Cr [facility] Procedures Code Procedure Name Date Entry Date Standard Description CPT-82509 Abd compl w upright - XRAY USE ONLY 14:48:09 CDT 02/18 CPT-24874 Port a cath flush 13:46:05 CDT CPT-75685 Hip, complete, 2-3 views - XRAY USE ONLY 10:28:40 CDT CPT-85757 BMP - LAB USE ONLY 16:45:09 WOOLEN TESTER CPT-47951 Port a cath flush 12:00:13 WOOLEN TESTER CPT-TCMM Transitional Care Mgmt-Moderate 11:20:16 WOOLEN TESTER CPT-20348 First Vx - Ix admin for Medicare patients 17:35:15 CDT CPT-14893 Fluzone Preservative Free Intramuscular Suspension 17:35 :15 CDT CPT-59166 Microalbumin - LAB USE ONLY 11:52:05 CDT CPT-TCMM Transitional Care Mgmt-Moderate 11:33:57 CDT CPT-54155 No Charge Offi Visit 14:11:29 CDT CPT-10985 Magnesium - LAB USE ONLY 10:45:44 CDT CPT-18004 Lipid - LAB USE ONLY 10:45:44 CDT CPT-03050 CBC - LAB USE ONLY 10:45:44 CDT CPT-59760 Venipuncture Draw Fee 10:45:43 CDT CPT-31893 Venipuncture Draw Fee 18:21:27 CDT CPT-JTINJ Asp/Joint Injection 18:38:04 CDT CPT-27990 Immunization Each Additional Inj 17:38:04 CDT CPT-28038 Immunization Single Admin 17:38:04 CDT CPT-47368 Prevnar 13 17:38:04 CDT CPT-99619 Fluzone Quadrivalent preservative free (>=3yrs.) 17:38: 04 CDT CPT-39237 No Charge Offi Visit 11:14:03 CDT CPT-38238 Chest 2V Frontal and Lat 14:00:18 CDT CPT-OV Office Visit 16:10:28 CDT CPT-JTINJ Asp/Joint Injection 09:03:57 CDT CPT-Cryo Cryotherapy 09:35:49 WOOLEN TESTER CPT-JTINJ Asp/Joint Injection 09:34:45 WOOLEN TESTER CPT-J2930 Solu Medrol 125 mg (Methyl Prednisolone Sodium Succinate) 20:37:27 CDT CPT-35698 Abx/Therapy Injection 20:37:27 CDT CPT-58997 Port a cath flush 08:15:51 CDT CPT-00314 Port a cath flush 09:54:16 CDT CPT-11937 Port a cath flush 09:38:02 CDT [facility]-10139 Port a cath flush 11:00:27 WOOLEN TESTER
--- OUTSIDE RECORDS SUMMARY | 2017-12-29 01:50 | XMS REPORT | Clinical Summary ---
Author Author Admin, QIE Organization [facility] Address Unknown Phone Unavailable Allergies, Adverse [...] positional vertigo Colon cancer screening V76.51 Active [facility] [employer] ARCHITECT Screening for malignant neoplasms of colon Screening for malignant neoplasm, colon V76.51 Active [facility] [employer] ARCHITECT Screening for malignant neoplasms of colon Pneumonia 486 Active Harinder Hernandez DO Pneumonia, organism unspecified Bacteremia 790.7 Active Harinder Hernandez DO Unspecified bacteremia Clostridium difficile colitis 008.45 Active Harinder Hernandez DO Intestinal infection due to clostridium difficile Abdominal pain, right lower quadrant 789.03 Active Harinder Hernandez DO Abdominal pain, right lower quadrant Needs vaccination for influenza V04.81 Active 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 Need for prophylactic vaccination and inoculation against influenza Need for prophylactic vaccination against streptococcus pneumoniae ( Pneumococcus) V03.82 Active 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 Need for prophylactic vaccination against Streptococcus pneumoniae [...] Take 1 tab po every hs LOVASTATIN 98438610596 Active Johny Dawkins MD Active AMLODIPINE BESYLATE 5 MG ORAL TABS Take 1 tab po daily AMLODIPINE BESYLATE 11753165126 Active Tawnya Pardo MA Active VENTOLIN HFA 108 (90 BASE) MCG/ACT AERS 2 -4 puffs four times a day PRN 2013 ALBUTEROL SULFATE 78183589629 No Longer Active Jeri Sosa RPT,RMA Active DILAUDID 2 MG ORAL TABS Take 1/2 tab po every 4 hours as needed for pain 2014 HYDROMORPHONE HCL 16922030558 Active Harinder Hernandez DO Active ACEBUTOLOL HCL 200 MG CAPS 1 cap in the morning and 2 caps in the evening ACEBUTOLOL HCL 29492519635 No Longer Active Harinder Hernandez DO Active CEFDINIR 300 MG ORAL CAPS take 1 cap po bid x 10 days CEFDINIR 97919768747 No Longer Active Harinder Hernandez DO Active AMITRIPTYLINE HCL 25 MG ORAL TABS 1 q hs prn AMITRIPTYLINE HCL 08525524908 Active Tawnya Pardo MA Active LOVASTATIN 40 MG TABS 1 pill by mouth nightly for cholesterol LOVASTATIN 22253427945 No Longer Active Nettie Newberry APRN Active NITROSTAT 0.4 MG SUBL 1 tab under tongueas needed for chest pain ( may take 3 total, 5 min apart, then call 911) NITROGLYCERIN 82751430458 No Longer Active Nettie Newberry APRN Active POTASSIUM CHLORIDE CR 10 MEQ CPCR 1 capsule by mouth daily 02/14 POTASSIUM CHLORIDE 68290946351 No Longer Active Nettie Newberry APRN Active TESSALON PERLES 100 MG CAP 1 to 2 tablets by mouth 3 times daily as needed for cough BENZONATATE 03748885521 No Longer Active Nettie Newberry APRN Active THEOPHYLLINE ER 200 MG ORAL [id number] Take 1 tab every 12 hours THEOPHYLLINE 44962459171 Active Tawnya Pardo MA Active PREDNISONE 20 MG TAB 2 po qd x 5 days PREDNISONE 53432686052 No Longer Active Jae Morgan MD Active AZITHROMYCIN 250 MG TABS 2 po qd x 1 day, then 1 po qd x 4 days AZITHROMYCIN 84540511465 No Longer Active Jae Morgan MD Active PREDNISONE 20 MG TAB 1 tab twice daily for 3 day, then one daily for three days PREDNISONE 23703337458 No Longer Active Jae Morgan MD Active MECLIZINE HCL 25 MG TAB 1 tablet three times daily for 3 days, then 1/2 tab three times daily for 3 days. MECLIZINE HCL 93689144424 Active Harinder Hernandez DO Active SINGULAIR 10 MG TABS 1 pill by mouth every evening for breathing. 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 NEURONTIN 300 MG CAP 1 cap by mouth three times daily for restless leg 06/22 GABAPENTIN 25640773613 No Longer Active Harinder Hernandez DO Active BENZONATATE 100 MG CAPS 1 cap po TID PRN BENZONATATE 50528184553 No Longer Active Harinder Hernandez DO Active MONTELUKAST SODIUM 10 MG TABS 1 tab po in the evening MONTELUKAST SODIUM 04207671010 No Longer Active Harinder Hernandez DO Active MUPIROCIN 2 % OINT apply to affected area BID x 14 days MUPIROCIN 06597539496 No Longer Active Harinder Hernandez DO Active TYLENOL EXTRA STRENGTH 500 MG TABS as needed ACETAMINOPHEN 65666632944 No Longer Active Harinder Hernandez DO Active PREDNISONE 10 MG TABS 1 tab po daily PREDNISONE 78487154824 No Longer Active Harinder Hernandez DO Active PREDNISONE 20 MG TAB 2 tabs daily for 4 days, 1 tab daily for 4 days, 1/2 tab daily for 4 days PREDNISONE 24367153431 No Longer Active Harinder Hernandez DO Active AZITHROMYCIN 250 MG TABS 2 po qd x 1 day, then 1 po qd x 4 days AZITHROMYCIN 15898544587 No Longer Active Harinder Hernandez DO Active PREDNISONE 20 MG TAB 3 tabs today, then 1 tab twice daily for 3 day, then one daily for three days PREDNISONE 44607897169 No Longer Active Harinder Hernandez DO Active NIFEDIAC CC 30 MG [id number] 1 tablet daily for raynaud's syndrome NIFEDIPINE 53987382905 No Longer Active Tawnya Pardo MA Active AMBIEN 10 MG TAB 1/2 tab by mouth at bedtime as needed for sleep ZOLPIDEM TARTRATE 62704378639 Active Harinder Hernandez DO Active CLONAZEPAM 1 MG TABS 1 tablet at bedtime for insomnia and restless legs 09/14 CLONAZEPAM 33122586637 Active Harinder Hernandez DO Active CLONAZEPAM 0.5 MG TABS 1 tab po daily CLONAZEPAM 12158843608 No Longer Active Harinder Hernandez DO Active PREDNISONE 10 MG TAB 1 tablet daily for COPD PREDNISONE 21162541299 Active Tawnya Pardo MA Active PROAIR HFA 108 (90 BASE) MCG/ACT AERS 2 puffs four times a day as needed 2012 ALBUTEROL SULFATE 59011168137 Active Tawnya Pardo MA Active FLOVENT HFA 110 MCG/ACT AERO 2 puffs inhaled b.i.d. FLUTICASONE PROPIONATE HFA 47442172171 Active Tawnya Pardo MA Active EPIPEN 0.3 MG/0.3ML URIEL DIRECTED EPINEPHRINE Active Demetrius JOHNSON Active ACIPHEX 20 MG TBEC 1 tab po daily RABEPRAZOLE SODIUM 84635207673 Active Tawnya Pardo MA Active TOPIRAMATE 25 MG TABS 1 tab po BID TOPIRAMATE 40422685453 Active Tawnya Pardo MA Active CLONAZEPAM 0.5 MG TABS 1 tab po daily CLONAZEPAM 0.5 MG TABS 858492 CLONAZEPAM Inactive PREDNISONE 20 MG TAB 3 tabs today, then 1 tab twice daily for 3 day, then one daily for three days PREDNISONE 20 MG TAB 219162 PREDNISONE Inactive PREDNISONE 20 MG TAB 2 tabs daily for 4 days, 1 tab daily for 4 days, 1/2 tab daily for 4 days PREDNISONE 20 MG TAB 282138 PREDNISONE Inactive PREDNISONE 10 MG TABS 1 tab po daily PREDNISONE 10 MG TABS 131062 PREDNISONE Inactive TYLENOL EXTRA STRENGTH 500 MG TABS as needed TYLENOL EXTRA STRENGTH 500 MG TABS 870532 ACETAMINOPHEN Inactive MUPIROCIN 2 % OINT apply to affected area BID x 14 days MUPIROCIN 2 % OINT 623176 MUPIROCIN Inactive MONTELUKAST SODIUM 10 MG TABS 1 tab po in the evening MONTELUKAST SODIUM 10 MG TABS 20010818 MONTELUKAST SODIUM Inactive BENZONATATE 100 MG CAPS 1 cap po TID PRN BENZONATATE 100 MG CAPS 979219 BENZONATATE Inactive NEURONTIN 300 MG CAP 1 cap by mouth three times daily for restless leg 06/22 NEURONTIN 300 MG CAP 917740 GABAPENTIN Inactive LEVAQUIN 500 MG TAB 1 tablet by mouth daily LEVAQUIN 500 MG TAB 267853 LEVOFLOXACIN Inactive PREDNISONE 20 MG TAB 1 TID x 2 days, then 1 BID x 3 days, then 1 Daily x 3 days, then stop PREDNISONE 20 MG TAB 070364 PREDNISONE Inactive POTASSIUM CHLORIDE ER 10 MEQ CR-TABS take 1 tab po daily POTASSIUM CHLORIDE ER 10 MEQ CR-TABS POTASSIUM CHLORIDE Inactive PREDNISONE 20 MG TAB 1 tab twice daily for 3 day, then one daily for three days PREDNISONE 20 MG TAB 443873 PREDNISONE Inactive TESSALON PERLES 100 MG CAP 1 to 2 tablets by mouth 3 times daily as needed for cough TESSALON PERLES 100 MG CAP 899343 BENZONATATE Inactive POTASSIUM CHLORIDE CR 10 MEQ [...] nightly for cholesterol LOVASTATIN 40 MG TABS 766638 LOVASTATIN Inactive CEFDINIR 300 MG ORAL CAPS take 1 cap po bid x 10 days CEFDINIR 300 MG ORAL CAPS 439680 CEFDINIR Inactive ACEBUTOLOL HCL 200 MG CAPS 1 cap in the morning and 2 caps in the evening ACEBUTOLOL HCL 200 MG CAPS 735972 ACEBUTOLOL HCL Inactive VENTOLIN HFA 108 (90 BASE) MCG/ACT AERS 2 -4 puffs four times a day PRN 2013 VENTOLIN HFA 108 (90 BASE) MCG/ACT AERS ALBUTEROL SULFATE Inactive AZITHROMYCIN 250 MG TABS 2 po qd x 1 day, then 1 po qd x 4 days AZITHROMYCIN 250 MG TABS 9280514 AZITHROMYCIN Inactive AZITHROMYCIN 250 MG TABS 2 po qd x 1 day, then 1 po qd x 4 days AZITHROMYCIN 250 MG TABS 3387164 AZITHROMYCIN Inactive PREDNISONE 20 MG TAB 2 po qd x 5 days PREDNISONE 20 MG TAB 233927 PREDNISONE Inactive Vital Signs Date Name Value [...] Panel - Chemistry sodium, serum 138 mmol/L 187-000 6478/09/24 potassium, serum 3.5 mmol/L 3.5-5.2 chloride, serum [...] 142-424 Encounters Code Encounter Date Provider Facility CPT-01668 Level 3 Est. Patient 12:14:34 CDT Harinder Cr [facility] CPT-42172 Level 3 Est. Patient 13:47:15 CDT Harinder Cr [facility] CPT-90843 Level 3 Est. Patient 14:08:24 CDT Harinder Cr [facility] CPT-69075 Level 3 Est. Patient 10:07:15 CDT Harinder Hernandez [facility] CPT-65081 Level 3 Est. Patient 10:06:59 CDT Harinder Cr [facility] CPT-81046 Level 3 Est. Patient 15:53:29 CDT Jae Morgan MD [facility] CPT-25618 Level 3 Est. Patient 17:19:04 CDT Harinder Cr David [facility] CPT-41474 Level 3 Est. Patient 11:13:01 CDT Harinder Hernandez [facility] CPT-49428 Level 3 Est. Patient 09:03:58 CDT Harinder Hernandez [facility] CPT-65758 Level 3 Est. Patient 14:46:45 SECURITY TESTER Harinder Shaye David [facility] CPT-67604 Level 3 Est. Patient 09:35:49 SECURITY TESTER Harinder Hernandez [facility] CPT-68180 Level 3 Est. Patient 09:29:37 SECURITY TESTER Harinder Cr David [facility] CPT-27280 Level 3 Est. Patient 15:51:07 CDT Harinder Hernandez [facility] CPT-75723 Level 3 Est. Patient 18:13:13 CDT Harinder Cr [facility] CPT-53142 Level 3 Est. Patient 10:44:19 CDT Harinder Hernandez [facility] CPT-09951 Level 4 Est. Patient 10:07:19 SECURITY TESTER Harinder Cr [facility] CPT-81036 Level 3 Est. Patient 15:59:32 SECURITY TESTER Harinder Cr [facility] Procedures Code Procedure Name Date Entry Date Standard Description CPT-30150 Immunization Each Additional Inj 17:38:04 CDT CPT-07525 Immunization Single Admin 17:38:04 CDT CPT-73219 Prevnar 13 17:38:04 CDT CPT-94922 Fluzone Quadrivalent preservative free (>=3yrs.) 17:38: 04 CDT CPT-15045 No Charge Offi Visit 11:14:03 CDT CPT-20369 Chest 2V Frontal and Lat 14:00:18 CDT CPT-OV Office Visit 16:10:28 CDT CPT-JTINJ Asp/Joint Injection 09:03:57 CDT CPT-Cryo Cryotherapy 09:35:49 SECURITY TESTER CPT-JTINJ Asp/Joint Injection 09:34:45 SECURITY TESTER CPT-J2930 Solu Medrol 125 mg (Methyl Prednisolone Sodium Succinate) 20:37:27 CDT CPT-22426 Abx/Therapy Injection 20:37:27 CDT CPT-41091 Port a cath flush 08:15:51 CDT CPT-88176 Port a cath flush 09:54:16 CDT CPT-59532 Port a cath flush 09:38:02 CDT CPT-39377 Port a cath flush 11:00:27 SECURITY TESTER
--- OUTSIDE RECORDS SUMMARY | 2017-12-29 01:51 | XMS REPORT | Clinical Summary ---
Author Author Admin, QIE Organization [facility] Address Unknown Phone Unavailable Allergies, Adverse Reactions, [...] 1 capsule twice daily 10 days CEFDINIR [id number] Active Harinder Hernandez DO Active SUPER CALCIUM 600 + D3 TABLET CALCIUM CARBONATE-VITAMIN D TABS 36071079269 Active Meenu Alejo LPN Active SPIRONOLACTONE 25 MG ORAL TABLET 1 tablet by mouth daily SPIRONOLACTONE 78956060511 No Longer Active Jeri Nieto Active PREDNISONE 20 MG ORAL TABLET 2 tablets by mouth today, then 1 tablet by mouth days 2-3 PREDNISONE 04227290317 No Longer Active Jeri Nieto Active NITROSTAT 0.4 MG SUBLINGUAL TABLET SUBLINGUAL 1 tab SL q5min PRN chest pain NITROGLYCERIN 39728337253 Active Meenu Alejo LPN Active THEOPHYLLINE ER 300 MG ORAL TABLET EXTENDED RELEASE 12 HOUR 1 po BID THEOPHYLLINE 77214979451 Active Meenu Aeljo LPN Active POTASSIUM CHLORIDE ER 20 MEQ ORAL TABLET EXTENDED RELEASE 1 po q day POTASSIUM CHLORIDE 51154305778 Active Kortney Mccain Active POTASSIUM CHLORIDE 20 MEQ ORAL PACKET 1 tab po q day POTASSIUM CHLORIDE 32698119996 No Longer Active Kortney Mccain Active POTASSIUM CHLORIDE ER 10 MEQ ORAL CAPSULE EXTENDED RELEASE 1 capsule BID 2016 POTASSIUM CHLORIDE 94963217196 No Longer Active Kortney Mccain Active LASIX 20 MG ORAL TABLET 1 tablet by mouth every morning FUROSEMIDE 33500785986 No Longer Active Kortney Mccain Active FLUOXETINE HCL 10 MG ORAL CAPSULE 1 po qd for depression/anxiety FLUOXETINE HCL 08822824605 Active Meenu Alejo LPN Active VOLTAREN 1 % TRANSDERMAL GEL apply q 6-8 hour to left arm as needed for pain DICLOFENAC SODIUM 95239689751 Active Kortney Mccain Active ALBUTEROL SULFATE (2.5 MG/3ML) 0.083% INHALATION NEBULIZATION SOLUTION 1 vial neb q 4hrs for severe asthma. 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 NIFEDIPINE 79669676427 Active Kortney Mccain Active AMLODIPINE BESYLATE 5 MG ORAL TABLET 1 tablet by mouth daily 2016 AMLODIPINE BESYLATE 58780132257 No Longer Active Harinder Hernandez DO Active TOPAMAX 25 MG ORAL TABLET 1 tab po BID TOPIRAMATE 55760778344 Active Kortney Mccain Active FLUTICASONE PROPIONATE 50 MCG/ACT NASAL SUSPENSION 2 sprays per nostril daily PRN Allergies FLUTICASONE PROPIONATE 22530255219 Active Meenu Alejo LPN Active NIFEDIPINE ER 30 MG ORAL TABLET EXTENDED RELEASE 24 HOUR 1 daily NIFEDIPINE 78899497120 No Longer Active Harinder Hernandez DO Active FLOVENT HFA 110 MCG/ACT INHALATION AEROSOL 2 puffs inhaled b.i.d. FLUTICASONE PROPIONATE HFA 26275610761 Active Harinder Hernandez DO Active EPIPEN 2-BRUNA 0.3 MG/0.3ML INJECTION SOLUTION AUTO-INJECTOR 1 INJ NEEDED EPINEPHRINE 30805657033 Active Meenu Alejo LPN Active PREDNISONE 20 MG ORAL TABLET 1 tab twice daily for 3 day, then one daily for three days PREDNISONE 45395745814 No Longer Active Harinder Hernandez DO Active PREDNISONE 20 MG ORAL TABLET 1 tablet twice daily for 2 days, then 1 tablet once daily for 2 days PREDNISONE 82899364624 No Longer Active Harinder Hernandez DO Active ASMANEX 120 METERED DOSES 220 MCG/INH INHALATION AEROSOL POWDER BREATH ACTIVATED 2 puffs orally twice daily MOMETASONE FUROATE 24349679352 Active Jeri Sosa LPN Active TOPIRAMATE 25 MG ORAL TABLET 1 tab po BID TOPIRAMATE 16764228461 No Longer Active Nettie Newberry APRN Active AMLODIPINE BESYLATE 5 MG ORAL TABLET Take 1 tab po daily AMLODIPINE BESYLATE 36008636812 No Longer Active Nettie Newberry APRN Active MECLIZINE HCL 25 MG ORAL TABLET 1 tablet three times daily for 3 days, then 1/ 2 tab three times daily for 3 days. MECLIZINE HCL 62557736605 No Longer Active Nettie Newberry APRN Active AMITRIPTYLINE HCL 25 MG ORAL TABLET 1 q hs prn AMITRIPTYLINE HCL 22535291412 No Longer Active Nettie Newberry APRN Active DILAUDID 2 MG ORAL TABLET Take 1/2 tab po every 4 hours as needed for pain HYDROMORPHONE HCL 47014974897 No Longer Active Nettie Newberry APRN Active CLOPIDOGREL BISULFATE 75 MG ORAL TABLET 1 tab by mouth once daily CLOPIDOGREL BISULFATE 66315923008 Active Meenu Alejo LPN Active ATORVASTATIN CALCIUM 10 MG ORAL TABLET 1 at bedtime ATORVASTATIN CALCIUM 37413023916 Active Kortney Mccain Active LOVASTATIN 40 MG ORAL TABLET Take 1 tab po every hs LOVASTATIN 42017168711 No Longer Active Harinder Hernandez DO Active PREDNISONE 20 MG ORAL TABLET 2 tabs daily for 4 days, 1 tab daily for 4 days, 1/2 tab daily for 4 days PREDNISONE 62478492969 No Longer Active Harinder Hernandez DO Active LEVAQUIN 500 MG ORAL TABLET Take 1 tab po daily x 8 days LEVOFLOXACIN 76278347710 No Longer Active Harinder Hernandez DO Active VENTOLIN HFA 108 (90 Base) MCG/ACT INHALATION AEROSOL SOLUTION 2 -4 puffs four times a day PRN ALBUTEROL SULFATE 54509464402 No Longer Active Jeri Sosa LPN Active ACEBUTOLOL HCL 200 MG ORAL CAPSULE 1 cap in the morning and 2 caps in the evening ACEBUTOLOL HCL 94433104866 No Longer Active Harinder Hernandez DO Active CEFDINIR 300 MG ORAL CAPSULE take 1 cap po bid x 10 days CEFDINIR 66267949147 No Longer Active Harinder Hernandez DO Active LOVASTATIN 40 MG ORAL TABLET 1 pill by mouth nightly for cholesterol LOVASTATIN 97464643007 No Longer Active Nettie Newberry APRN Active NITROSTAT 0.4 MG SUBLINGUAL TABLET SUBLINGUAL 1 tab under tongueas needed for chest pain ( may take 3 total, 5 min apart, then call 911) NITROGLYCERIN 10018370452 No Longer Active Nettie Newberry APRN Active POTASSIUM CHLORIDE ER 10 MEQ ORAL CAPSULE EXTENDED RELEASE 1 capsule by mouth daily POTASSIUM CHLORIDE 50740428297 No Longer Active Nettie Newberry APRN Active TESSALON PERLES 100 MG ORAL CAPSULE 1 to 2 tablets by mouth 3 times daily as needed for cough BENZONATATE 26310061764 No Longer Active Nettie Newberry APRN Active PREDNISONE 20 MG ORAL TABLET 2 po qd x 5 days PREDNISONE 15660026377 No Longer Active Jae Morgan MD Active AZITHROMYCIN 250 MG ORAL TABLET 2 po qd x 1 day, then 1 po qd x 4 days 12/30 AZITHROMYCIN 07019811628 No Longer Active Jae Morgan MD Active PREDNISONE 20 MG ORAL TABLET 1 tab twice daily for 3 day, then one daily for three days PREDNISONE 79735782584 No Longer Active Jae Morgan MD Active SINGULAIR 10 MG ORAL TABLET 1 pill by mouth every evening for breathing. 2014 MONTELUKAST SODIUM 49161812799 Active Meenu Alejo LPN Active TYLENOL 325 MG ORAL TABLET 3 by mouth q4h as needed ACETAMINOPHEN 83041435346 Active Harinder Hernanedz DO Active POTASSIUM CHLORIDE ER 10 MEQ ORAL TABLET EXTENDED RELEASE take 1 tab po daily POTASSIUM CHLORIDE 88522188923 No Longer Active Harinder Hernandez DO Active PREDNISONE 20 MG ORAL TABLET 1 TID x 2 days, then 1 BID x 3 days, then 1 Daily x 3 days, then stop PREDNISONE 54594167312 No Longer Active Jillina Frazell MAHENDRA Active LEVAQUIN 500 MG ORAL TABLET 1 tablet by mouth daily LEVOFLOXACIN 87869784364 No Longer Active Jillina Fradankl MAHENDRA Active NEURONTIN 300 MG ORAL CAPSULE 1 cap by mouth three times daily for restless leg GABAPENTIN 37543919782 No Longer Active Harinder Hernandez DO Active BENZONATATE 100 MG ORAL CAPSULE 1 cap po TID PRN BENZONATATE 52079559735 No Longer Active Harinder Hernandez DO Active MONTELUKAST SODIUM 10 MG ORAL TABLET 1 tab po in the evening 2014 MONTELUKAST SODIUM 44609773986 No Longer Active Harinder Hernandez DO Active MUPIROCIN 2 % EXTERNAL OINTMENT apply to affected area BID x 14 days MUPIROCIN 82406213900 No Longer Active Harinder Hernandez DO Active TYLENOL EXTRA STRENGTH 500 MG ORAL TABLET as needed ACETAMINOPHEN 47088032925 No Longer Active Harinder Hernandez DO Active PREDNISONE 10 MG ORAL TABLET 1 tab po daily PREDNISONE 45285698010 No Longer Active Harinder Hernandez DO Active PREDNISONE 20 MG ORAL TABLET 2 tabs daily for 4 days, 1 tab daily for 4 days, 1/2 tab daily for 4 days PREDNISONE 35374990608 No Longer Active Harinder Hernandez DO Active AZITHROMYCIN 250 MG ORAL TABLET 2 po qd x 1 day, then 1 po qd x 4 days 04/06 AZITHROMYCIN 90425205674 No Longer Active Harinder Hernandez DO Active PREDNISONE 20 MG ORAL TABLET 3 tabs today, then 1 tab twice daily for 3 day, then one daily for three days PREDNISONE 95280363845 No Longer Active Harinder Hernandez DO Active NIFEDIAC CC 30 MG ORAL TABLET EXTENDED RELEASE 24 HOUR 1 tablet daily for raynaud's syndrome NIFEDIPINE 33324802873 No Longer Active Tawnya Pardo MA Active AMBIEN 10 MG ORAL TABLET 1/2 tab by mouth at bedtime as needed for sleep 2013 ZOLPIDEM TARTRATE 69711457746 Active Meenu Alejo LPN Active CLONAZEPAM 1 MG ORAL TABLET 1 tablet at bedtime for insomnia and restless legs CLONAZEPAM 63265492448 Active Meenu Alejo LPN Active CLONAZEPAM 0.5 MG ORAL TABLET 1 tab po daily CLONAZEPAM 45017196330 No Longer Active Harinder Hernandez DO Active PREDNISONE 10 MG ORAL TABLET 1 tablet daily for COPD PREDNISONE 58866044906 Active Kortney Mccain Active PROAIR HFA 108 (90 Base) MCG/ACT INHALATION AEROSOL SOLUTION 2 puffs four times a day as needed ALBUTEROL SULFATE 36916194335 Active Harinder Hernandez DO Active FLOVENT HFA 110 MCG/ACT INHALATION AEROSOL 2 puffs inhaled b.i.d. FLUTICASONE PROPIONATE HFA 18546366207 Active Kortney Mccain Active ACIPHEX 20 MG ORAL TABLET DELAYED RELEASE 1 tab po daily RABEPRAZOLE SODIUM 97350759196 Active Meenu Melo CHEN Active CLONAZEPAM 0.5 MG ORAL TABLET 1 tab po daily CLONAZEPAM 0.5 MG ORAL TABLET 973120 CLONAZEPAM Inactive PREDNISONE 20 MG ORAL TABLET 3 tabs today, then 1 tab twice daily for 3 day, then one daily for three days PREDNISONE 20 MG ORAL TABLET 844660 PREDNISONE Inactive PREDNISONE 20 MG ORAL TABLET 2 tabs daily for 4 days, 1 tab daily for 4 days, 1/2 tab daily for 4 days PREDNISONE 20 MG ORAL TABLET 897320 PREDNISONE Inactive PREDNISONE 10 MG ORAL TABLET 1 tab po daily PREDNISONE 10 MG ORAL TABLET 390292 PREDNISONE Inactive TYLENOL EXTRA STRENGTH 500 MG ORAL TABLET as needed TYLENOL EXTRA STRENGTH 500 MG ORAL TABLET 610771 ACETAMINOPHEN Inactive MUPIROCIN 2 % EXTERNAL OINTMENT apply to affected area BID x 14 days MUPIROCIN 2 % EXTERNAL OINTMENT 772250 MUPIROCIN Inactive MONTELUKAST SODIUM 10 MG ORAL TABLET 1 tab po in the evening 2014 MONTELUKAST SODIUM 10 MG ORAL TABLET 039694 MONTELUKAST SODIUM Inactive BENZONATATE 100 MG ORAL CAPSULE 1 cap po TID PRN BENZONATATE 100 MG ORAL CAPSULE 108511 BENZONATATE Inactive NEURONTIN 300 MG ORAL CAPSULE 1 cap by mouth three times daily for restless leg NEURONTIN 300 MG ORAL CAPSULE 998542 GABAPENTIN Inactive LEVAQUIN 500 MG ORAL TABLET 1 tablet by mouth daily LEVAQUIN 500 MG ORAL TABLET 164523 LEVOFLOXACIN Inactive PREDNISONE 20 MG ORAL TABLET 1 TID x 2 days, then 1 BID x 3 days, then 1 Daily x 3 days, then stop PREDNISONE 20 MG ORAL TABLET 827718 PREDNISONE Inactive POTASSIUM CHLORIDE ER 10 MEQ ORAL TABLET EXTENDED RELEASE take 1 tab po daily POTASSIUM CHLORIDE ER 10 MEQ ORAL TABLET EXTENDED RELEASE POTASSIUM CHLORIDE Inactive PREDNISONE 20 MG ORAL TABLET 1 tab twice daily for 3 day, then one daily for three days PREDNISONE 20 MG ORAL TABLET 324696 PREDNISONE Inactive TESSALON PERLES 100 MG ORAL CAPSULE 1 to 2 tablets by mouth 3 times daily as needed for cough TESSALON PERLES 100 MG ORAL CAPSULE 223442 BENZONATATE Inactive POTASSIUM CHLORIDE ER 10 MEQ ORAL CAPSULE EXTENDED RELEASE 1 capsule by mouth daily POTASSIUM CHLORIDE ER 10 MEQ ORAL CAPSULE EXTENDED RELEASE POTASSIUM CHLORIDE Inactive NITROSTAT 0.4 MG SUBLINGUAL TABLET SUBLINGUAL 1 tab under tongueas needed for chest pain ( may take 3 total, 5 min apart, then call 911) NITROSTAT 0.4 MG SUBLINGUAL TABLET SUBLINGUAL 545793 NITROGLYCERIN Inactive LOVASTATIN 40 MG ORAL TABLET 1 pill by mouth nightly for cholesterol LOVASTATIN 40 MG ORAL TABLET 737749 LOVASTATIN Inactive CEFDINIR 300 MG ORAL CAPSULE take 1 cap po bid x 10 days CEFDINIR 300 MG ORAL CAPSULE 397550 CEFDINIR Inactive ACEBUTOLOL HCL 200 MG ORAL CAPSULE 1 cap in the morning and 2 caps in the evening ACEBUTOLOL HCL 200 MG ORAL CAPSULE 490457 ACEBUTOLOL HCL Inactive VENTOLIN HFA 108 (90 Base) MCG/ACT INHALATION AEROSOL SOLUTION 2 -4 puffs four times a day PRN VENTOLIN HFA 108 (90 Base) MCG/ ACT INHALATION AEROSOL SOLUTION ALBUTEROL SULFATE Inactive LEVAQUIN 500 MG ORAL TABLET Take 1 tab po daily x 8 days LEVAQUIN 500 MG ORAL TABLET 238869 LEVOFLOXACIN Inactive PREDNISONE 20 MG ORAL TABLET 2 tabs daily for 4 days, 1 tab daily for 4 days, 1/2 tab daily for 4 days PREDNISONE 20 MG ORAL TABLET 313412 PREDNISONE Inactive LOVASTATIN 40 MG ORAL TABLET Take 1 tab po every hs LOVASTATIN 40 MG ORAL TABLET 831802 LOVASTATIN Inactive DILAUDID 2 MG ORAL TABLET Take 1/2 tab po every 4 hours as needed for pain DILAUDID 2 MG ORAL TABLET 978419 HYDROMORPHONE HCL Inactive AMITRIPTYLINE HCL 25 MG ORAL TABLET 1 q hs prn AMITRIPTYLINE HCL 25 MG ORAL TABLET 996898 AMITRIPTYLINE HCL Inactive MECLIZINE HCL 25 MG ORAL TABLET 1 tablet three times daily for 3 days, then 1/ 2 tab three times daily for 3 days. MECLIZINE HCL 25 MG ORAL TABLET 495973 MECLIZINE HCL Inactive AMLODIPINE BESYLATE 5 MG ORAL TABLET Take 1 tab po daily AMLODIPINE BESYLATE 5 MG ORAL TABLET 514790 AMLODIPINE BESYLATE Inactive TOPIRAMATE 25 MG ORAL TABLET 1 tab po BID TOPIRAMATE 25 MG ORAL TABLET 562002 TOPIRAMATE Inactive PREDNISONE 20 MG ORAL TABLET 1 tablet twice daily for 2 days, then 1 tablet once daily for 2 days PREDNISONE 20 MG ORAL TABLET 769032 PREDNISONE Inactive PREDNISONE 20 MG ORAL TABLET 1 tab twice daily for 3 day, then one daily for three days PREDNISONE 20 MG ORAL TABLET 256783 PREDNISONE Inactive NIFEDIPINE ER 30 MG ORAL TABLET EXTENDED RELEASE 24 HOUR 1 daily NIFEDIPINE ER 30 MG ORAL TABLET EXTENDED RELEASE 24 HOUR NIFEDIPINE Inactive AMLODIPINE BESYLATE 5 MG ORAL TABLET 1 tablet by mouth daily 2016 AMLODIPINE BESYLATE 5 MG ORAL TABLET 097306 AMLODIPINE BESYLATE Inactive LASIX 20 MG ORAL TABLET 1 tablet by mouth every morning LASIX 20 MG ORAL TABLET 359071 FUROSEMIDE Inactive POTASSIUM CHLORIDE ER 10 MEQ ORAL CAPSULE EXTENDED RELEASE 1 capsule BID 2016 POTASSIUM CHLORIDE ER 10 MEQ ORAL CAPSULE EXTENDED RELEASE POTASSIUM CHLORIDE Inactive POTASSIUM CHLORIDE 20 MEQ ORAL PACKET 1 tab po q day POTASSIUM CHLORIDE 20 MEQ ORAL PACKET 9976557 POTASSIUM CHLORIDE Inactive PREDNISONE 20 MG ORAL TABLET 2 tablets by mouth today, then 1 tablet by mouth days 2-3 PREDNISONE 20 MG ORAL TABLET 654641 PREDNISONE Inactive SPIRONOLACTONE 25 MG ORAL TABLET 1 tablet by mouth daily SPIRONOLACTONE 25 MG ORAL TABLET 982789 SPIRONOLACTONE Inactive AZITHROMYCIN 250 MG ORAL TABLET 2 po qd x 1 day, then 1 po qd x 4 days 04/06 AZITHROMYCIN 250 MG ORAL TABLET 674566 AZITHROMYCIN Inactive AZITHROMYCIN 250 MG ORAL TABLET 2 po qd x 1 day, then 1 po qd x 4 days 12/30 AZITHROMYCIN 250 MG ORAL TABLET 910956 AZITHROMYCIN Inactive PREDNISONE 20 MG ORAL TABLET 2 po qd x 5 days PREDNISONE 20 MG ORAL TABLET 358820 PREDNISONE Inactive Vital Signs Date Name Value [...] Panel - Chemistry sodium, serum 140 mmol/L 865-400 9920/07/13 potassium, serum 3.2 mmol/L 3.5-5.2 chloride, serum 103 mmol/L 98-107 carbon dioxide, venous blood 26.9 mmol/L 21.0-32.0 blood glucose 93 mg/dL 65-110 calcium, serum 9.2 mg/dL 8.5-10.1 urea nitrogen, blood 13 mg/dL 7-18 creatinine, serum 0.84 mg/dL 0.60-1.30 sodium, serum 140 mmol/L 841-428 2103/08/21 potassium, serum 3.8 mmol/L 3.5-5.2 chloride, serum 105 mmol/L 98-107 carbon dioxide, venous blood 26.9 mmol/L 21.0-32.0 blood glucose 85 mg/dL 65-110 calcium, serum 8.8 mg/dL 8.5-10.1 urea nitrogen, blood 11 mg/dL 7-18 creatinine, serum 0.95 mg/dL 0.60-1.30 sodium, serum 142 mmol/L 470-678 5336/06/14 potassium, serum 3.3 mmol/L 3.5-5.2 chloride, serum [...] ... - Chemistry sodium, serum 141 mmol/L 424-029 9207/08/07 carbon dioxide, venous blood 34.0 mmol/L 21.0-32.0 [...] 1.40 mg/dL 0.00-1.00 cholesterol, serum 192 mg/dL 435-703 2752/10/19 triglyceride, serum, fasting 71 mg/dL 30-200 HDL cholesterol, serum 72 mg/dL 32-60 LDL cholesterol, serum 106 mg/dL 0-130 Lab Report: Rapid Strep - Lab Microbial identification kit, rapid strep method Negative Negative Lab Report: THEOPHYLLINE - Toxicology theophylline level, serum 3.1 ug/mL 10.0-20.0 Encounters Code Encounter Date Provider Facility CPT-53114 Level 3 Est. Patient 14:31:43 CDT Harinder Hernandez [facility] CPT-84105 Level 4 Est. Patient 10:17:51 DRIVER SERVICE TECHNICIAN Harinder Hernandez [facility] CPT-75962 Level 3 Est. Patient 12:36:15 DRIVER SERVICE TECHNICIAN Harinder Hernandez [facility] CPT-73002 Level 3 Est. Patient 15:14:45 DRIVER SERVICE TECHNICIAN Harinder Hernandez [facility] CPT-51548 Level 4 Est. Patient 14:45:25 CDT Harinder Cr [facility] CPT-21270 Level 4 Est. Patient 09:15:13 CDT Harinder Hernandez [facility] CPT-65793 Level 3 Est. Patient 11:51:58 CDT Harinder Hernandez [facility] CPT-37071 Level 3 Est. Patient 11:30:05 CDT Harinder Cr [facility] CPT-55368 Level 4 Est. Patient 10:19:23 CDT Harinder Cr [facility] CPT-54752 Level 3 Est. Patient 09:58:58 CDT Harinder Cr [facility] CPT-86236 Level 3 Est. Patient 12:37:21 CDT Harinder Cr [facility] CPT-13254 Level 3 Est. Patient 18:37:17 CDT Harinder Cr [facility] CPT-53759 Level 4 Est. Patient 11:15:54 CDT Nettie Newberry [facility] CPT-40796 Level 3 Est. Patient 16:42:24 CDT Harinder Cr [facility] CPT-80516 Level 3 Est. Patient 15:03:36 CDT Harinder Cr [facility] CPT-06781 Level 3 Est. Patient 15:03:20 CDT Harinder Cr [facility] CPT-82101 Level 3 Est. Patient 12:14:34 CDT Harinder Cr [facility] CPT-84286 Level 3 Est. Patient 13:47:15 CDT Harinder Cr [facility] CPT-70057 Level 3 Est. Patient 14:08:24 CDT Harinder Cr [facility] CPT-21019 Level 3 Est. Patient 10:07:15 CDT Harinder Hernandez [facility] CPT-03517 Level 3 Est. Patient 10:06:59 CDT Harinder Hernandez [facility] CPT-68632 Level 3 Est. Patient 15:53:29 CDT Jae Morgan MD [facility] CPT-26344 Level 3 Est. Patient 17:19:04 CDT Harinder Hernandez [facility] CPT-74993 Level 3 Est. Patient 11:13:01 CDT Harinder Hernandez [facility] CPT-69028 Level 3 Est. Patient 09:03:58 CDT Harinder Hernandez [facility] CPT-43407 Level 3 Est. Patient 14:46:45 DRIVER SERVICE TECHNICIAN Harinder Hernandez [facility] CPT-03617 Level 3 Est. Patient 09:35:49 DRIVER SERVICE TECHNICIAN Harinder Hernandez [facility] CPT-87604 Level 3 Est. Patient 09:29:37 DRIVER SERVICE TECHNICIAN Harinder Hernandez [facility] CPT-06430 Level 3 Est. Patient 15:51:07 CDT Harinder Hernandez [facility] CPT-73547 Level 3 Est. Patient 18:13:13 CDT Harinder Hernandez [facility] CPT-35205 Level 3 Est. Patient 10:44:19 CDT Harinder Hernandez [facility] CPT-53873 Level 4 Est. Patient 10:07:19 DRIVER SERVICE TECHNICIAN Harinder Hernandez [facility] CPT-73790 Level 3 Est. Patient 15:59:32 DRIVER SERVICE TECHNICIAN Harinder Shaye David [facility] Procedures Code Procedure Name Date Entry Date Standard Description CPT-36065 Bone Density - XRAY USE ONLY 14:43:42 CDT CPT-G0009 Administration of Pneumococcal Vaccine 10:33:25 DRIVER SERVICE TECHNICIAN CPT-94210 Pneumovax 23 Injection Injectable 25 MCG/0.5ML 10:33:25 DRIVER SERVICE TECHNICIAN CPT-30264 First Vx - Ix admin for Medicare patients 10:33:25 DRIVER SERVICE TECHNICIAN CPT-41221 Fluzone Quadrivalent Intramuscular Suspension 0.5 ML 10: 33:25 DRIVER SERVICE TECHNICIAN CPT-Cryo Cryotherapy 10:17:51 DRIVER SERVICE TECHNICIAN CPT-G0438 Initial Annual Wellness Exam 10:08:59 DRIVER SERVICE TECHNICIAN CPT-42504 Abd compl w upright - XRAY USE ONLY 14:48:09 CDT 02/18 CPT-64025 Port a cath flush 13:46:05 CDT CPT-94844 Hip, complete, 2-3 views - XRAY USE ONLY 10:28:40 CDT CPT-71501 BMP - LAB USE ONLY 16:45:09 DRIVER SERVICE TECHNICIAN CPT-56711 Port a cath flush 12:00:13 DRIVER SERVICE TECHNICIAN CPT-TCMM Transitional Care Mgmt-Moderate 11:20:16 DRIVER SERVICE TECHNICIAN CPT-58405 First Vx - Ix admin for Medicare patients 17:35:15 CDT CPT-79829 Fluzone Preservative Free Intramuscular Suspension 17:35 :15 CDT CPT-43361 Microalbumin - LAB USE ONLY 11:52:05 CDT CPT-TCMM Transitional Care Mgmt-Moderate 11:33:57 CDT CPT-17952 No Charge Offi Visit 14:11:29 CDT CPT-15073 Magnesium - LAB USE ONLY 10:45:44 CDT CPT-42545 Lipid - LAB USE ONLY 10:45:44 CDT CPT-74755 CBC - LAB USE ONLY 10:45:44 CDT CPT-18437 Venipuncture Draw Fee 10:45:43 CDT CPT-97486 Venipuncture Draw Fee 18:21:27 CDT CPT-JTINJ Asp/Joint Injection 18:38:04 CDT CPT-81744 Immunization Each Additional Inj 17:38:04 CDT CPT-77682 Immunization Single Admin 17:38:04 CDT CPT-49120 Prevnar 13 17:38:04 CDT CPT-35251 Fluzone Quadrivalent preservative free (>=3yrs.) 17:38: 04 CDT CPT-22420 No Charge Offi Visit 11:14:03 CDT CPT-23034 Chest 2V Frontal and Lat 14:00:18 CDT CPT-OV Office Visit 16:10:28 CDT CPT-JTINJ Asp/Joint Injection 09:03:57 CDT CPT-Cryo Cryotherapy 09:35:49 DRIVER SERVICE TECHNICIAN CPT-JTINJ Asp/Joint Injection 09:34:45 DRIVER SERVICE TECHNICIAN CPT-J2930 Solu Medrol 125 mg (Methyl Prednisolone Sodium Succinate) 20:37:27 CDT CPT-18468 Abx/Therapy Injection 20:37:27 CDT CPT-39159 Port a cath flush 08:15:51 CDT CPT-93997 Port a cath flush 09:54:16 CDT CPT-78391 Port a cath flush 09:38:02 CDT CPT-39804 Port a cath flush 11:00:27 DRIVER SERVICE TECHNICIAN
--- OUTSIDE RECORDS SUMMARY | 2017-12-29 01:52 | XMS REPORT | Clinical Summary ---
Author Author Admin, QIE Organization [facility] Address Unknown Phone Unavailable Allergies, Adverse Reactions, [...] 2 puffs orally twice daily MOMETASONE FUROATE [id number] Active Jeri Sosa RPT,RMA Active NIFEDIPINE ER 30 MG ORAL [id number] 1 daily NIFEDIPINE 10563987932 Active Tawnya Pardo MA Active TOPIRAMATE 25 MG TABS 1 tab po BID TOPIRAMATE 04939453139 No Longer Active Nettie Newberry APRN Active AMLODIPINE BESYLATE 5 MG ORAL TABS Take 1 tab po daily AMLODIPINE BESYLATE 53700001407 No Longer Active Nettie Newberry APRN Active MECLIZINE HCL 25 MG TAB 1 tablet three times daily for 3 days, then 1/2 tab three times daily for 3 days. MECLIZINE HCL 20688238574 No Longer Active Nettieog Newberry APRN Active AMITRIPTYLINE HCL 25 MG ORAL TABS 1 q hs prn AMITRIPTYLINE HCL 30614287272 No Longer Active Nettieog Newberry APRN Active DILAUDID 2 MG ORAL TABS Take 1/2 tab po every 4 hours as needed for pain 2014 HYDROMORPHONE HCL 23805994242 No Longer Active Nettie Newberry APRN Active CLOPIDOGREL BISULFATE 75 MG ORAL TABS 1 tab by mouth once daily CLOPIDOGREL BISULFATE 44784248406 Active Tawnya Pardo MA Active ATORVASTATIN CALCIUM 10 MG ORAL TABS 1 at bedtime ATORVASTATIN CALCIUM 30395872547 Active Tawnya Pardo MA Active LOVASTATIN 40 MG ORAL TABS Take 1 tab po every hs LOVASTATIN 87619609566 No Longer Active Harinder Hernandez DO Active PREDNISONE 20 MG TAB 2 tabs daily for 4 days, 1 tab daily for 4 days, 1/2 tab daily for 4 days PREDNISONE 07503535966 No Longer Active Harinder Hernandez DO Active LEVAQUIN 500 MG ORAL TABS Take 1 tab po daily x 8 days LEVOFLOXACIN 96871260281 No Longer Active Harinder Hernandez DO Active VENTOLIN HFA 108 (90 BASE) MCG/ACT AERS 2 -4 puffs four times a day PRN 2013 ALBUTEROL SULFATE 55017228472 No Longer Active Jeri Sosa RPT,RMA Active ACEBUTOLOL HCL 200 MG CAPS 1 cap in the morning and 2 caps in the evening ACEBUTOLOL HCL 76731748787 No Longer Active Harinder Hernandez DO Active CEFDINIR 300 MG ORAL CAPS take 1 cap po bid x 10 days CEFDINIR 70079903140 No Longer Active Harinder Hernandez DO Active LOVASTATIN 40 MG TABS 1 pill by mouth nightly for cholesterol LOVASTATIN 14995901176 No Longer Active Nettie Newberry APRN Active NITROSTAT 0.4 MG SUBL 1 tab under tongueas needed for chest pain ( may take 3 total, 5 min apart, then call 911) NITROGLYCERIN 12355323251 No Longer Active Nettie Newberry APRN Active POTASSIUM CHLORIDE CR 10 MEQ CPCR 1 capsule by mouth daily 02/14 POTASSIUM CHLORIDE 00266201913 No Longer Active Nettie Newberry APRN Active TESSALON PERLES 100 MG CAP 1 to 2 tablets by mouth 3 times daily as needed for cough BENZONATATE 40788583627 No Longer Active Nettie Newberry APRN Active THEOPHYLLINE ER 200 MG ORAL [id number] Take 1 tab every 12 hours THEOPHYLLINE 60966987339 Active Tawnya Pardo MA Active PREDNISONE 20 MG TAB 2 po qd x 5 days PREDNISONE 80167200287 No Longer Active Jae Morgan MD Active AZITHROMYCIN 250 MG TABS 2 po qd x 1 day, then 1 po qd x 4 days AZITHROMYCIN 31454824266 No Longer Active Jae Morgan MD Active PREDNISONE 20 MG TAB 1 tab twice daily for 3 day, then one daily for three days PREDNISONE 61784332345 No Longer Active Jae Morgan MD Active SINGULAIR 10 MG TABS 1 pill by mouth every evening for breathing. MONTELUKAST SODIUM 72131479641 Active Tawnya Pardo MA Active TYLENOL 325 MG TAB 3 by mouth q4h as needed ACETAMINOPHEN 75245788991 Active Harinder Hernandez DO Active POTASSIUM CHLORIDE ER 10 MEQ CR-TABS take 1 tab po daily POTASSIUM CHLORIDE 77239954179 No Longer Active Harinder Hernandez DO Active PREDNISONE 20 MG TAB 1 TID x 2 days, then 1 BID x 3 days, then 1 Daily x 3 days, then stop PREDNISONE 00979040954 No Longer Active John Montemayor APRN Active LEVAQUIN 500 MG TAB 1 tablet by mouth daily LEVOFLOXACIN 20662850080 No Longer Active John Montemayor APRN Active NEURONTIN 300 MG CAP 1 cap by mouth three times daily for restless leg 06/22 GABAPENTIN 37026812735 No Longer Active Harinder Hernandez DO Active BENZONATATE 100 MG CAPS 1 cap po TID PRN BENZONATATE 83134237197 No Longer Active Harinder Hernandez DO Active MONTELUKAST SODIUM 10 MG TABS 1 tab po in the evening MONTELUKAST SODIUM 17249846866 No Longer Active Harinder Hernandez DO Active MUPIROCIN 2 % OINT apply to affected area BID x 14 days MUPIROCIN 50148186803 No Longer Active Harinder Hernandez DO Active TYLENOL EXTRA STRENGTH 500 MG TABS as needed ACETAMINOPHEN 54266720070 No Longer Active Harinder Hernandez DO Active PREDNISONE 10 MG TABS 1 tab po daily PREDNISONE 95085114971 No Longer Active Harinder Hernandez DO Active PREDNISONE 20 MG TAB 2 tabs daily for 4 days, 1 tab daily for 4 days, 1/2 tab daily for 4 days PREDNISONE 36611399637 No Longer Active Harinder Hernandez DO Active AZITHROMYCIN 250 MG TABS 2 po qd x 1 day, then 1 po qd x 4 days AZITHROMYCIN 95352515502 No Longer Active Harinder Hernandez DO Active PREDNISONE 20 MG TAB 3 tabs today, then 1 tab twice daily for 3 day, then one daily for three days PREDNISONE 75983607829 No Longer Active Harinder Hernandez DO Active NIFEDIAC CC 30 MG [id number] 1 tablet daily for raynaud's syndrome NIFEDIPINE 93302967635 No Longer Active Tawnya Pardo MA Active AMBIEN 10 MG TAB 1/2 tab by mouth at bedtime as needed for sleep ZOLPIDEM TARTRATE 32671686148 Active Harinder Hernandez DO Active CLONAZEPAM 1 MG TABS 1 tablet at bedtime for insomnia and restless legs 09/14 CLONAZEPAM 62354024743 Active Harinder Hernandez DO Active CLONAZEPAM 0.5 MG TABS 1 tab po daily CLONAZEPAM 33861045962 No Longer Active Harinder Hernandez DO Active PREDNISONE 10 MG TAB 1 tablet daily for COPD PREDNISONE 08386752748 Active Tawnya Pardo MA Active PROAIR HFA 108 (90 BASE) MCG/ACT AERS 2 puffs four times a day as needed 2012 ALBUTEROL SULFATE 01536680806 Active Tawnya Pardo MA Active FLOVENT HFA 110 MCG/ACT AERO 2 puffs inhaled b.i.d. FLUTICASONE PROPIONATE HFA 88075262425 Active Tawnya Pardo MA Active EPIPEN 0.3 MG/0.3ML URIEL DIRECTED EPINEPHRINE Active Demetrius JOHNSON Active ACIPHEX 20 MG TBEC 1 tab po daily RABEPRAZOLE SODIUM 79836024802 Active Tawnya Pardo MA Active CLONAZEPAM 0.5 MG TABS 1 tab po daily CLONAZEPAM 0.5 MG TABS 594799 CLONAZEPAM Inactive PREDNISONE 20 MG TAB 3 tabs today, then 1 tab twice daily for 3 day, then one daily for three days PREDNISONE 20 MG TAB 612219 PREDNISONE Inactive PREDNISONE 20 MG TAB 2 tabs daily for 4 days, 1 tab daily for 4 days, 1/2 tab daily for 4 days PREDNISONE 20 MG TAB 886572 PREDNISONE Inactive PREDNISONE 10 MG TABS 1 tab po daily PREDNISONE 10 MG TABS 962192 PREDNISONE Inactive TYLENOL EXTRA STRENGTH 500 MG TABS as needed TYLENOL EXTRA STRENGTH 500 MG TABS 765120 ACETAMINOPHEN Inactive MUPIROCIN 2 % OINT apply to affected area BID x 14 days MUPIROCIN 2 % OINT 602561 MUPIROCIN Inactive MONTELUKAST SODIUM 10 MG TABS 1 tab po in the evening MONTELUKAST SODIUM 10 MG TABS 20010818 MONTELUKAST SODIUM Inactive BENZONATATE 100 MG CAPS 1 cap po TID PRN BENZONATATE 100 MG CAPS 19730321 BENZONATATE Inactive NEURONTIN 300 MG CAP 1 cap by mouth three times daily for restless leg 06/22 NEURONTIN 300 MG CAP 468006 GABAPENTIN Inactive LEVAQUIN 500 MG TAB 1 tablet by mouth daily LEVAQUIN 500 MG TAB 055605 LEVOFLOXACIN Inactive PREDNISONE 20 MG TAB 1 TID x 2 days, then 1 BID x 3 days, then 1 Daily x 3 days, then stop PREDNISONE 20 MG TAB 048386 PREDNISONE Inactive POTASSIUM CHLORIDE ER 10 MEQ CR-TABS take 1 tab po daily POTASSIUM CHLORIDE ER 10 MEQ CR-TABS POTASSIUM CHLORIDE Inactive PREDNISONE 20 MG TAB 1 tab twice daily for 3 day, then one daily for three days PREDNISONE 20 MG TAB 088067 PREDNISONE Inactive TESSALON PERLES 100 MG CAP [...] nightly for cholesterol LOVASTATIN 40 MG TABS 777952 LOVASTATIN Inactive CEFDINIR 300 MG ORAL CAPS take 1 cap po bid x 10 days CEFDINIR 300 MG ORAL CAPS 388001 CEFDINIR Inactive ACEBUTOLOL HCL 200 MG CAPS 1 cap in the morning and 2 caps in the evening ACEBUTOLOL HCL 200 MG CAPS 458404 ACEBUTOLOL HCL Inactive VENTOLIN HFA 108 (90 BASE) MCG/ACT AERS 2 -4 puffs four times a day PRN 2013 VENTOLIN HFA 108 (90 BASE) MCG/ACT AERS ALBUTEROL SULFATE Inactive LEVAQUIN 500 MG ORAL TABS Take 1 tab po daily x 8 days LEVAQUIN 500 MG ORAL TABS 198033 LEVOFLOXACIN Inactive PREDNISONE 20 MG TAB 2 tabs daily for 4 days, 1 tab daily for 4 days, 1/2 tab daily for 4 days PREDNISONE 20 MG TAB 652651 PREDNISONE Inactive LOVASTATIN 40 MG ORAL TABS Take 1 tab po every hs LOVASTATIN 40 MG ORAL TABS 904602 LOVASTATIN Inactive DILAUDID 2 MG ORAL TABS Take 1/2 tab po every 4 hours as needed for pain 2014 DILAUDID 2 MG ORAL TABS 006004 HYDROMORPHONE HCL Inactive AMITRIPTYLINE HCL 25 MG ORAL TABS 1 q hs prn AMITRIPTYLINE HCL 25 MG ORAL TABS 239803 AMITRIPTYLINE HCL Inactive MECLIZINE HCL 25 MG TAB 1 tablet three times daily for 3 days, then 1/2 tab three times daily for 3 days. MECLIZINE HCL 25 MG TAB 258233 MECLIZINE HCL Inactive AMLODIPINE BESYLATE 5 MG ORAL TABS Take 1 tab po daily AMLODIPINE BESYLATE 5 MG ORAL TABS 191108 AMLODIPINE BESYLATE Inactive TOPIRAMATE 25 MG TABS 1 tab po BID TOPIRAMATE 25 MG TABS 746446 TOPIRAMATE Inactive AZITHROMYCIN 250 MG TABS 2 po qd x 1 day, then 1 po qd x 4 days AZITHROMYCIN 250 MG TABS 9541410 AZITHROMYCIN Inactive AZITHROMYCIN 250 MG TABS 2 po qd x 1 day, then 1 po qd x 4 days AZITHROMYCIN 250 MG TABS 2017130 AZITHROMYCIN Inactive PREDNISONE 20 MG TAB 2 po qd x 5 days PREDNISONE 20 MG TAB 768083 PREDNISONE Inactive Vital Signs Date Name Value [...] Panel - Chemistry sodium, serum 138 mmol/L 679-306 1667/09/24 potassium, serum 3.5 mmol/L 3.5-5.2 chloride, serum [...] [phone] Encounters Code Encounter Date Provider Facility CPT-97658 Level 4 Est. Patient 11:15:54 CDT Nettie Newberry [facility] CPT-74164 Level 3 Est. Patient 16:42:24 CDT Harinder Cr [facility] CPT-31644 Level 3 Est. Patient 15:03:36 CDT Harinder Cr [facility] CPT-42618 Level 3 Est. Patient 15:03:20 CDT Harinder Cr [facility] CPT-37355 Level 3 Est. Patient 12:14:34 CDT Harinder Hernandez [facility] CPT-91418 Level 3 Est. Patient 13:47:15 CDT Harinder Cr [facility] CPT-39475 Level 3 Est. Patient 14:08:24 CDT Harinder Hernandez [facility] CPT-31743 Level 3 Est. Patient 10:07:15 CDT Harinder Cr [facility] CPT-74816 Level 3 Est. Patient 10:06:59 CDT Harinder Cr [facility] CPT-05780 Level 3 Est. Patient 15:53:29 CDT Jae Morgan MD [facility] CPT-81494 Level 3 Est. Patient 17:19:04 CDT Harinder Cr David [facility] CPT-96633 Level 3 Est. Patient 11:13:01 CDT Harinder Hernandez [facility] CPT-96545 Level 3 Est. Patient 09:03:58 CDT Harinder Hernandez [facility] CPT-42339 Level 3 Est. Patient 14:46:45 CHIEF STEWARD/STEWARDESS Harinder Hernandez [facility] CPT-99315 Level 3 Est. Patient 09:35:49 CHIEF STEWARD/STEWARDESS Harinder Shaye Hernandez [facility] CPT-31057 Level 3 Est. Patient 09:29:37 CHIEF STEWARD/STEWARDESS Harinder Shaye David [facility] CPT-37990 Level 3 Est. Patient 15:51:07 CDT Harinder Hernandez [facility] CPT-65962 Level 3 Est. Patient 18:13:13 CDT Harinder Cr [facility] CPT-93902 Level 3 Est. Patient 10:44:19 CDT Harinder Hernandez [facility] CPT-98346 Level 4 Est. Patient 10:07:19 CHIEF STEWARD/STEWARDESS Harinder Cr [facility] CPT-92444 Level 3 Est. Patient 15:59:32 CHIEF STEWARD/STEWARDESS Harinder Cr [facility] Procedures Code Procedure Name Date Entry Date Standard Description CPT-43352 Immunization Each Additional Inj 17:38:04 CDT CPT-57082 Immunization Single Admin 17:38:04 CDT CPT-38660 Prevnar 13 17:38:04 CDT CPT-15862 Fluzone Quadrivalent preservative free (>=3yrs.) 17:38: 04 CDT CPT-53972 No Charge Offi Visit 11:14:03 CDT CPT-51125 Chest 2V Frontal and Lat 14:00:18 CDT CPT-OV Office Visit 16:10:28 CDT CPT-JTINJ Asp/Joint Injection 09:03:57 CDT CPT-Cryo Cryotherapy 09:35:49 CHIEF STEWARD/STEWARDESS CPT-JTINJ Asp/Joint Injection 09:34:45 CHIEF STEWARD/STEWARDESS CPT-J2930 Solu Medrol 125 mg (Methyl Prednisolone Sodium Succinate) 20:37:27 CDT CPT-34255 Abx/Therapy Injection 20:37:27 CDT CPT-15740 Port a cath flush 08:15:51 CDT CPT-74848 Port a cath flush 09:54:16 CDT CPT-11974 Port a cath flush 09:38:02 CDT CPT-20744 Port a cath flush 11:00:27 CHIEF STEWARD/STEWARDESS
--- OUTSIDE RECORDS SUMMARY | 2017-12-29 01:53 | XMS REPORT | Clinical Summary ---
Author Author Admin, QIE Organization [facility] [employer] Address Unknown Phone Unavailable Allergies, Adverse Reactions, [...] neoplasms of colon Pneumonia 486 Resolved Harinder W David DO Pneumonia , organism unspecified Bacteremia 790.7 [...] Harinder Shaye Hernandez DO Dysphagia , unspecified Hx of ischemic cerebrovascular accident with residual deficit 438.9 Active Harinder Shaye Hernandez DO Unspecified late effects of cerebrovascular disease Breast mass, right ICD-611.72 Inactive Harinder Hernandez Encounter for fitting and adjustment of vascular catheter ICD-V58.81 Inactive Harinder Hernandez DO Back pain, lumbar ICD-724.2 Inactive Harinder Shaye Hernandez DO Insomnia ICD-780.52 Inactive Harinder Shaye Hernandez [...] Generic Name NDC Status Provider Patient Instruction CLOPIDOGREL BISULFATE 75 MG ORAL TABS 1 tab by mouth once daily CLOPIDOGREL BISULFATE 28796955464 Active Harinder Hernandez DO Active ATORVASTATIN CALCIUM 10 MG ORAL TABS 1 at bedtime ATORVASTATIN CALCIUM 86863841888 Active Harinder Hernandez DO Active LOVASTATIN 40 MG ORAL TABS Take 1 tab po every hs LOVASTATIN 65992597464 No Longer Active Harinder Hernandez DO Active PREDNISONE 20 MG TAB 2 tabs daily for 4 days, 1 tab daily for 4 days, 1/2 tab daily for 4 days PREDNISONE 73249822966 No Longer Active Harinder Hernandez DO Active LEVAQUIN 500 MG ORAL TABS Take 1 tab po daily x 8 days LEVOFLOXACIN 62299458392 No Longer Active Harinder Hernandez DO Active AMLODIPINE BESYLATE 5 MG ORAL TABS Take 1 tab po daily AMLODIPINE BESYLATE 88598715134 Active Tawnya Pardo MA Active VENTOLIN HFA 108 (90 BASE) MCG/ACT AERS 2 -4 puffs four times a day PRN 2013 ALBUTEROL SULFATE 00236783649 No Longer Active Jeri Sosa RPT,RMA Active DILAUDID 2 MG ORAL TABS Take 1/2 tab po every 4 hours as needed for pain 2014 HYDROMORPHONE HCL 98349416398 Active Harinder Hernandez DO Active ACEBUTOLOL HCL 200 MG CAPS 1 cap in the morning and 2 caps in the evening ACEBUTOLOL HCL 41294417286 No Longer Active Harinder Hernandez DO Active CEFDINIR 300 MG ORAL CAPS take 1 cap po bid x 10 days CEFDINIR 60478311009 No Longer Active Harinder Hernandez DO Active AMITRIPTYLINE HCL 25 MG ORAL TABS 1 q hs prn AMITRIPTYLINE HCL 18265179139 Active Tawnya Pardo MA Active LOVASTATIN 40 MG TABS 1 pill by mouth nightly for cholesterol LOVASTATIN 70104101691 No Longer Active Nettie Newberry APRN Active NITROSTAT 0.4 MG SUBL 1 tab under tongueas needed for chest pain ( may take 3 total, 5 min apart, then call 911) NITROGLYCERIN 43232875203 No Longer Active Nettie Newberry APRN Active POTASSIUM CHLORIDE CR 10 MEQ CPCR 1 capsule by mouth daily 02/14 POTASSIUM CHLORIDE 10071300711 No Longer Active Nettie Newberry APRN Active TESSALON PERLES 100 MG CAP 1 to 2 tablets by mouth 3 times daily as needed for cough BENZONATATE 80460783256 No Longer Active Nettie Newberry APRN Active THEOPHYLLINE ER 200 MG ORAL [id number] Take 1 tab every 12 hours THEOPHYLLINE 59872296864 Active Tawnya Pardo MA Active PREDNISONE 20 MG TAB 2 po qd x 5 days PREDNISONE 95081837808 No Longer Active Jae Morgan MD Active AZITHROMYCIN 250 MG TABS 2 po qd x 1 day, then 1 po qd x 4 days AZITHROMYCIN 56894412775 No Longer Active Jae Morgan MD Active PREDNISONE 20 MG TAB 1 tab twice daily for 3 day, then one daily for three days PREDNISONE 88202483422 No Longer Active Jae Morgan MD Active MECLIZINE HCL 25 MG TAB 1 tablet three times daily for 3 days, then 1/2 tab three times daily for 3 days. MECLIZINE HCL 48852469952 Active Harinder Hernandez DO Active SINGULAIR 10 MG TABS 1 pill by mouth every evening for breathing. MONTELUKAST SODIUM 74012396158 Active Tawnya Pardo MA Active TYLENOL 325 MG TAB 3 by mouth q4h as needed ACETAMINOPHEN 96781090619 Active Harinder Hernandez DO Active POTASSIUM CHLORIDE ER 10 MEQ CR-TABS take 1 tab po daily POTASSIUM CHLORIDE 49612353355 No Longer Active Harinder Hernandez DO Active PREDNISONE 20 MG TAB 1 TID x 2 days, then 1 BID x 3 days, then 1 Daily x 3 days, then stop PREDNISONE 94884680765 No Longer Active Jialec Montemayor APRN Active LEVAQUIN 500 MG TAB 1 tablet by mouth daily LEVOFLOXACIN 47770444613 No Longer Active Jillina Fradankl [employer] Active NEURONTIN 300 MG CAP 1 cap by mouth three times daily for restless leg 06/22 GABAPENTIN 20333271892 No Longer Active Harinder Hernandez DO Active BENZONATATE 100 MG CAPS 1 cap po TID PRN BENZONATATE 85086128926 No Longer Active Harinder Hernandez DO Active MONTELUKAST SODIUM 10 MG TABS 1 tab po in the evening MONTELUKAST SODIUM 63036086097 No Longer Active Harinder Hernandez DO Active MUPIROCIN 2 % OINT apply to affected area BID x 14 days MUPIROCIN 16274734708 No Longer Active Harinder Hernandez DO Active TYLENOL EXTRA STRENGTH 500 MG TABS as needed ACETAMINOPHEN 20363042611 No Longer Active Harinder Hernandez DO Active PREDNISONE 10 MG TABS 1 tab po daily PREDNISONE 49759655272 No Longer Active Harinder Hernandez DO Active PREDNISONE 20 MG TAB 2 tabs daily for 4 days, 1 tab daily for 4 days, 1/2 tab daily for 4 days PREDNISONE 32089247701 No Longer Active Harinder Hernandez DO Active AZITHROMYCIN 250 MG TABS 2 po qd x 1 day, then 1 po qd x 4 days AZITHROMYCIN 25890510173 No Longer Active Harinder Hernandez DO Active PREDNISONE 20 MG TAB 3 tabs today, then 1 tab twice daily for 3 day, then one daily for three days PREDNISONE 84694292942 No Longer Active Harinder Hernandez DO Active NIFEDIAC CC 30 MG [id number] 1 tablet daily for raynaud's syndrome NIFEDIPINE 76499543936 No Longer Active Tawnya Pardo MA Active AMBIEN 10 MG TAB 1/2 tab by mouth at bedtime as needed for sleep ZOLPIDEM TARTRATE 58647005389 Active Harinder Hernandez DO Active CLONAZEPAM 1 MG TABS 1 tablet at bedtime for insomnia and restless legs 09/14 CLONAZEPAM 43245569433 Active Harinder Hernandez DO Active CLONAZEPAM 0.5 MG TABS 1 tab po daily CLONAZEPAM 30404867771 No Longer Active Harinder Hernandez DO Active PREDNISONE 10 MG TAB 1 tablet daily for COPD PREDNISONE 61669174340 Active Tawnya Pardo MA Active PROAIR HFA 108 (90 BASE) MCG/ACT AERS 2 puffs four times a day as needed 2012 ALBUTEROL SULFATE 36806433617 Active Tawnya Pardo MA Active FLOVENT HFA 110 MCG/ACT AERO 2 puffs inhaled b.i.d. FLUTICASONE PROPIONATE HFA 30935328568 Active Tawnya Pardo MA Active EPIPEN 0.3 MG/0.3ML URIEL DIRECTED EPINEPHRINE Active Demetrius JOHNSON Active ACIPHEX 20 MG TBEC 1 tab po daily RABEPRAZOLE SODIUM 60310865405 Active Tawnya Pardo MA Active TOPIRAMATE 25 MG TABS 1 tab po BID TOPIRAMATE 94829321638 Active Tawnya Pardo MA Active CLONAZEPAM 0.5 MG TABS 1 tab po daily CLONAZEPAM 0.5 MG TABS 289285 CLONAZEPAM Inactive PREDNISONE 20 MG TAB 3 tabs today, then 1 tab twice daily for 3 day, then one daily for three days PREDNISONE 20 MG TAB 105762 PREDNISONE Inactive PREDNISONE 20 MG TAB 2 tabs daily for 4 days, 1 tab daily for 4 days, 1/2 tab daily for 4 days PREDNISONE 20 MG TAB 433342 PREDNISONE Inactive PREDNISONE 10 MG TABS 1 tab po daily PREDNISONE 10 MG TABS 457720 PREDNISONE Inactive TYLENOL EXTRA STRENGTH 500 MG TABS as needed TYLENOL EXTRA STRENGTH 500 MG TABS 100742 ACETAMINOPHEN Inactive MUPIROCIN 2 % OINT apply to affected area BID x 14 days MUPIROCIN 2 % OINT 587170 MUPIROCIN Inactive MONTELUKAST SODIUM 10 MG TABS 1 tab po in the evening MONTELUKAST SODIUM 10 MG TABS 20010818 MONTELUKAST SODIUM Inactive BENZONATATE 100 MG CAPS 1 cap po TID PRN BENZONATATE 100 MG CAPS 554164 BENZONATATE Inactive NEURONTIN 300 MG CAP 1 cap by mouth three times daily for restless leg 06/22 NEURONTIN 300 MG CAP 664890 GABAPENTIN Inactive LEVAQUIN 500 MG TAB 1 tablet by mouth daily LEVAQUIN 500 MG TAB 675796 LEVOFLOXACIN Inactive PREDNISONE 20 MG TAB 1 TID x 2 days, then 1 BID x 3 days, then 1 Daily x 3 days, then stop PREDNISONE 20 MG TAB 085178 PREDNISONE Inactive POTASSIUM CHLORIDE ER 10 MEQ CR-TABS take 1 tab po daily POTASSIUM CHLORIDE ER 10 MEQ CR-TABS POTASSIUM CHLORIDE Inactive PREDNISONE 20 MG TAB 1 tab twice daily for 3 day, then one daily for three days PREDNISONE 20 MG TAB 150929 PREDNISONE Inactive TESSALON PERLES 100 MG CAP 1 to 2 tablets by mouth 3 times daily as needed for cough TESSALON PERLES 100 MG CAP 998066 BENZONATATE Inactive POTASSIUM CHLORIDE CR 10 MEQ [...] nightly for cholesterol LOVASTATIN 40 MG TABS 641455 LOVASTATIN Inactive CEFDINIR 300 MG ORAL CAPS take 1 cap po bid x 10 days CEFDINIR 300 MG ORAL CAPS 587350 CEFDINIR Inactive ACEBUTOLOL HCL 200 MG CAPS 1 cap in the morning and 2 caps in the evening ACEBUTOLOL HCL 200 MG CAPS 647137 ACEBUTOLOL HCL Inactive VENTOLIN HFA 108 (90 BASE) MCG/ACT AERS 2 -4 puffs four times a day PRN 2013 VENTOLIN HFA 108 (90 BASE) MCG/ACT AERS ALBUTEROL SULFATE Inactive LEVAQUIN 500 MG ORAL TABS Take 1 tab po daily x 8 days LEVAQUIN 500 MG ORAL TABS 027752 LEVOFLOXACIN Inactive PREDNISONE 20 MG TAB 2 tabs daily for 4 days, 1 tab daily for 4 days, 1/2 tab daily for 4 days PREDNISONE 20 MG TAB 556758 PREDNISONE Inactive LOVASTATIN 40 MG ORAL TABS Take 1 tab po every hs LOVASTATIN 40 MG ORAL TABS 081870 LOVASTATIN Inactive AZITHROMYCIN 250 MG TABS 2 po qd x 1 day, then 1 po qd x 4 days AZITHROMYCIN 250 MG TABS 4839620 AZITHROMYCIN Inactive AZITHROMYCIN 250 MG TABS 2 po qd x 1 day, then 1 po qd x 4 days AZITHROMYCIN 250 MG TABS 0713202 AZITHROMYCIN Inactive PREDNISONE 20 MG TAB 2 po qd x 5 days PREDNISONE 20 MG TAB 647056 PREDNISONE Inactive Vital Signs Date Name Value [...] Panel - Chemistry sodium, serum 138 mmol/L 711-652 4361/09/24 potassium, serum 3.5 mmol/L 3.5-5.2 chloride, serum [...] 142-424 Encounters Code Encounter Date Provider Facility CPT-83046 Level 3 Est. Patient 16:42:24 CDT Harinder Cr David [facility] CPT-72414 Level 3 Est. Patient 15:03:36 CDT Harinder Cr [facility] CPT-73902 Level 3 Est. Patient 15:03:20 CDT Harinder Cr [facility] CPT-15704 Level 3 Est. Patient 12:14:34 CDT Harinder Shaye David [facility] CPT-84198 Level 3 Est. Patient 13:47:15 CDT Harinder Cr [facility] CPT-67657 Level 3 Est. Patient 14:08:24 CDT Harinder Shaye [facility] CPT-72432 Level 3 Est. Patient 10:07:15 CDT Harinder Shaye [facility] CPT-78807 Level 3 Est. Patient 10:06:59 CDT Harinder Cr [facility] CPT-59609 Level 3 Est. Patient 15:53:29 CDT Jae Morgan MD [facility] CPT-24312 Level 3 Est. Patient 17:19:04 CDT Harinder Hernandez [facility] CPT-28178 Level 3 Est. Patient 11:13:01 CDT Harinder Hernandez [facility] CPT-71597 Level 3 Est. Patient 09:03:58 CDT Harinder Hernandez [facility] CPT-91211 Level 3 Est. Patient 14:46:45 RAYON TESTER Harinder Hernandez [facility] CPT-29828 Level 3 Est. Patient 09:35:49 RAYON TESTER Harinder Hernandez [facility] CPT-50483 Level 3 Est. Patient 09:29:37 RAYON TESTER Harinder Hernandez [facility] CPT-86927 Level 3 Est. Patient 15:51:07 CDT Harinder Hernandez [facility] CPT-91384 Level 3 Est. Patient 18:13:13 CDT Harinder Hernandez [facility] CPT-69565 Level 3 Est. Patient 10:44:19 CDT Harinder Hernandez [facility] CPT-09082 Level 4 Est. Patient 10:07:19 RAYON TESTER Harinder Hernandez [facility] CPT-10341 Level 3 Est. Patient 15:59:32 RAYON TESTER Harinder Cr [facility] Procedures Code Procedure Name Date Entry Date Standard Description CPT-58228 Immunization Each Additional Inj 17:38:04 CDT CPT-62272 Immunization Single Admin 17:38:04 CDT CPT-05756 Prevnar 13 17:38:04 CDT CPT-84945 Fluzone Quadrivalent preservative free (>=3yrs.) 17:38: 04 CDT CPT-66334 No Charge Offi Visit 11:14:03 CDT CPT-91444 Chest 2V Frontal and Lat 14:00:18 CDT CPT-OV Office Visit 16:10:28 CDT CPT-JTINJ Asp/Joint Injection 09:03:57 CDT CPT-Cryo Cryotherapy 09:35:49 RAYON TESTER CPT-JTINJ Asp/Joint Injection 09:34:45 RAYON TESTER CPT-J2930 Solu Medrol 125 mg (Methyl Prednisolone Sodium Succinate) 20:37:27 CDT CPT-44439 Abx/Therapy Injection 20:37:27 CDT CPT-16532 Port a cath flush 08:15:51 CDT CPT-75615 Port a cath flush 09:54:16 CDT CPT-42365 Port a cath flush 09:38:02 CDT CPT-78952 Port a cath flush 11:00:27 RAYON TESTER
--- OUTSIDE RECORDS SUMMARY | 2017-12-29 01:55 | XMS REPORT | Clinical Summary ---
Author Author Admin, QIE Organization [facility] Address Unknown Phone Unavailable Allergies, Adverse Reactions, [...] DO Back pain, lumbar ICD-724.2 Inactive Harinder Henrandez DO Insomnia ICD-780.52 Inactive Harinder Hernandez DO [...] TAB 1 tablet by mouth daily SPIRONOLACTONE 85228421075 Prince Pimentel Active POTASSIUM CHLORIDE CR 10 MEQ CPCR 1 capsule BID POTASSIUM CHLORIDE 89179199573 Prince Mccani Active FLUOXETINE HCL 10 MG ORAL CAPS 1 po qd for depression/anxiety FLUOXETINE HCL 79642091659 Active Harinder Hernandez DO Active VOLTAREN 1 % GEL apply q 6-8 hour to left arm as needed for pain DICLOFENAC SODIUM 19560098934 Prince Hernandez DO Active LASIX 20 MG TAB 1 tablet by mouth every morning FUROSEMIDE 44527256492 Prince Mccain Active POTASSIUM CHLORIDE 20 MEQ ORAL PACK 1 tab po BID POTASSIUM CHLORIDE 75260668710 Prince Mccain Active ALBUTEROL SULFATE 0.083 % NEBU SOLN 1 vial neb q 4hrs for severe asthma. 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 FLUTICASONE PROPIONATE HFA 84528330785 Active Harinder Hernandez DO Active EPIPEN 2-BRUNA 0.3 MG/0.3ML INJ SOAJ 1 INJ NEEDED EPINEPHRINE 19310589765 Active Harinder Hernandez DO Active PREDNISONE 20 MG TAB 1 tab twice daily for 3 day, then one daily for three days PREDNISONE 41590435621 No Longer Active Harinder Hernandez DO Active PREDNISONE 20 MG TAB 1 tablet twice daily for 2 days, then 1 tablet once daily for 2 days PREDNISONE 68268139380 No Longer Active Harinder Hernandez DO Active ASMANEX 120 METERED DOSES 220 MCG/INH INH AEPB 2 puffs orally twice daily MOMETASONE FUROATE 52034309355 Active Jeri Sosa LPN Active TOPIRAMATE 25 MG TABS 1 tab po BID TOPIRAMATE 07595253978 No Longer Active Nettie Newberry APRN Active AMLODIPINE BESYLATE 5 MG ORAL TABS Take 1 tab po daily AMLODIPINE BESYLATE 35463311285 No Longer Active Nettie Newberry APRN Active MECLIZINE HCL 25 MG TAB 1 tablet three times daily for 3 days, then 1/2 tab three times daily for 3 days. MECLIZINE HCL 88337553681 No Longer Active Nettie Newberry APRN Active AMITRIPTYLINE HCL 25 MG ORAL TABS 1 q hs prn AMITRIPTYLINE HCL 35252006271 No Longer Active Nettie Newberry APRN Active DILAUDID 2 MG ORAL TABS Take 1/2 tab po every 4 hours as needed for pain 2014 HYDROMORPHONE HCL 60346615998 No Longer Active Nettie Newberry APRN Active CLOPIDOGREL BISULFATE 75 MG ORAL TABS 1 tab by mouth once daily CLOPIDOGREL BISULFATE 35889351316 Active Harinder Hernandez DO Active ATORVASTATIN CALCIUM 10 MG ORAL TABS 1 at bedtime ATORVASTATIN CALCIUM 00143131553 Active Tawnya Pardo MA Active LOVASTATIN 40 MG ORAL TABS Take 1 tab po every hs LOVASTATIN 06358926558 No Longer Active Harinder Hernandez DO Active PREDNISONE 20 MG TAB 2 tabs daily for 4 days, 1 tab daily for 4 days, 1/2 tab daily for 4 days PREDNISONE 96641449513 No Longer Active Harinder Hernandez DO Active LEVAQUIN 500 MG ORAL TABS Take 1 tab po daily x 8 days LEVOFLOXACIN 96751109906 No Longer Active Harinder Hernandez DO Active VENTOLIN HFA 108 (90 BASE) MCG/ACT AERS 2 -4 puffs four times a day PRN 2013 ALBUTEROL SULFATE 78924556107 No Longer Active Jeri Sosa LPN Active ACEBUTOLOL HCL 200 MG CAPS 1 cap in the morning and 2 caps in the evening ACEBUTOLOL HCL 99193127069 No Longer Active Harinder Hernandez DO Active CEFDINIR 300 MG ORAL CAPS take 1 cap po bid x 10 days CEFDINIR 77056131735 No Longer Active Harinder Hernandez DO Active LOVASTATIN 40 MG TABS 1 pill by mouth nightly for cholesterol LOVASTATIN 30762179372 No Longer Active Nettie Newberry APRN Active NITROSTAT 0.4 MG SUBL 1 tab under tongueas needed for chest pain ( may take 3 total, 5 min apart, then call 911) NITROGLYCERIN 76390896395 No Longer Active Nettie Newberry MAHENDRA Active POTASSIUM CHLORIDE CR 10 MEQ CPCR 1 capsule by mouth daily 02/14 POTASSIUM CHLORIDE 52824530555 No Longer Active Nettie Newberry MAHENDRA Active TESSALON PERLES 100 MG CAP 1 to 2 tablets by mouth 3 times daily as needed for cough BENZONATATE 94059029376 No Longer Active Nettie Newberry MAHENDRA Active THEOPHYLLINE ER 200 MG ORAL [id number] Take 1 tab every 12 hours THEOPHYLLINE 34971111955 Active Kortney Mccain Active PREDNISONE 20 MG TAB 2 po qd x 5 days PREDNISONE 10384064404 No Longer Active Jae Morgan MD Active AZITHROMYCIN 250 MG TABS 2 po qd x 1 day, then 1 po qd x 4 days AZITHROMYCIN 38957103372 No Longer Active Jae Morgan MD Active PREDNISONE 20 MG TAB 1 tab twice daily for 3 day, then one daily for three days PREDNISONE 82491629609 No Longer Active Jae Morgan MD Active SINGULAIR 10 MG TABS 1 pill by mouth every evening for breathing. MONTELUKAST SODIUM 05683205465 Active Tawnya Pardo MA Active TYLENOL 325 MG TAB 3 by mouth q4h as needed ACETAMINOPHEN 52485638529 Active Harinder Hernandez DO Active POTASSIUM CHLORIDE ER 10 MEQ CR-TABS take 1 tab po daily POTASSIUM CHLORIDE 95267698634 No Longer Active Harinder Hernandez DO Active PREDNISONE 20 MG TAB 1 TID x 2 days, then 1 BID x 3 days, then 1 Daily x 3 days, then stop PREDNISONE 03511093640 No Longer Active John Montemayor APRN Active LEVAQUIN 500 MG TAB 1 tablet by mouth daily LEVOFLOXACIN 58493024960 No Longer Active Jillina Frazell [employer] Active NEURONTIN 300 MG CAP 1 cap by mouth three times daily for restless leg 06/22 GABAPENTIN 87993589694 No Longer Active Harinder Hernandez DO Active BENZONATATE 100 MG CAPS 1 cap po TID PRN BENZONATATE 38149746718 No Longer Active Harinder Hernandez DO Active MONTELUKAST SODIUM 10 MG TABS 1 tab po in the evening MONTELUKAST SODIUM 46304639648 No Longer Active Harinder Hernandez DO Active MUPIROCIN 2 % OINT apply to affected area BID x 14 days MUPIROCIN 29223891811 No Longer Active Harinder Hernandez DO Active TYLENOL EXTRA STRENGTH 500 MG TABS as needed ACETAMINOPHEN 98478753992 No Longer Active Harinder Hernandez DO Active PREDNISONE 10 MG TABS 1 tab po daily PREDNISONE 15078192371 No Longer Active Harinder Hernandez DO Active PREDNISONE 20 MG TAB 2 tabs daily for 4 days, 1 tab daily for 4 days, 1/2 tab daily for 4 days PREDNISONE 85003612283 No Longer Active Harinder Hernandez DO Active AZITHROMYCIN 250 MG TABS 2 po qd x 1 day, then 1 po qd x 4 days AZITHROMYCIN 43844163858 No Longer Active Harinder Hernandez DO Active PREDNISONE 20 MG TAB 3 tabs today, then 1 tab twice daily for 3 day, then one daily for three days PREDNISONE 32730787662 No Longer Active Harinder Hernandez DO Active NIFEDIAC CC 30 MG [id number] 1 tablet daily for raynaud's syndrome NIFEDIPINE 85795913428 No Longer Active Tawnya Pardo MA Active AMBIEN 10 MG TAB 1/2 tab by mouth at bedtime as needed for sleep ZOLPIDEM TARTRATE 14883425598 Active Ciera Pimentel Active CLONAZEPAM 1 MG TABS 1 tablet at bedtime for insomnia and restless legs 09/14 CLONAZEPAM 32154153024 Active Harinder Hernandez DO Active CLONAZEPAM 0.5 MG TABS 1 tab po daily CLONAZEPAM 51740304652 No Longer Active Harinder Hernandez DO Active PREDNISONE 10 MG TAB 1 tablet daily for COPD PREDNISONE 84326764283 Active Ciera Pimentel Active PROAIR HFA 108 (90 BASE) MCG/ACT AERS 2 puffs four times a day as needed 2012 ALBUTEROL SULFATE 20788539231 Active Harinder Hernandez DO Active FLOVENT HFA 110 MCG/ACT AERO 2 puffs inhaled b.i.d. FLUTICASONE PROPIONATE HFA 01285276688 Active Kortneyalice Mccain Active ACIPHEX 20 MG TBEC 1 tab po daily RABEPRAZOLE SODIUM 38290347961 Active Kaylah Newberry Active CLONAZEPAM 0.5 MG TABS 1 tab po daily CLONAZEPAM 0.5 MG TABS 429977 CLONAZEPAM Inactive PREDNISONE 20 MG TAB 3 tabs today, then 1 tab twice daily for 3 day, then one daily for three days PREDNISONE 20 MG TAB 241784 PREDNISONE Inactive PREDNISONE 20 MG TAB 2 tabs daily for 4 days, 1 tab daily for 4 days, 1/2 tab daily for 4 days PREDNISONE 20 MG TAB 663564 PREDNISONE Inactive PREDNISONE 10 MG TABS 1 tab po daily PREDNISONE 10 MG TABS 879904 PREDNISONE Inactive TYLENOL EXTRA STRENGTH 500 MG TABS as needed TYLENOL EXTRA STRENGTH 500 MG TABS 257662 ACETAMINOPHEN Inactive MUPIROCIN 2 % OINT apply to affected area BID x 14 days MUPIROCIN 2 % OINT 861423 MUPIROCIN Inactive MONTELUKAST SODIUM 10 MG TABS 1 tab po in the evening MONTELUKAST SODIUM 10 MG TABS 20010818 MONTELUKAST SODIUM Inactive BENZONATATE 100 MG CAPS 1 cap po TID PRN BENZONATATE 100 MG CAPS 028016 BENZONATATE Inactive NEURONTIN 300 MG CAP 1 cap by mouth three times daily for restless leg 06/22 NEURONTIN 300 MG CAP 039910 GABAPENTIN Inactive LEVAQUIN 500 MG TAB 1 tablet by mouth daily LEVAQUIN 500 MG TAB 356081 LEVOFLOXACIN Inactive PREDNISONE 20 MG TAB 1 TID x 2 days, then 1 BID x 3 days, then 1 Daily x 3 days, then stop PREDNISONE 20 MG TAB 012565 PREDNISONE Inactive POTASSIUM CHLORIDE ER 10 MEQ CR-TABS take 1 tab po daily POTASSIUM CHLORIDE ER 10 MEQ CR-TABS POTASSIUM CHLORIDE Inactive PREDNISONE 20 MG TAB 1 tab twice daily for 3 day, then one daily for three days PREDNISONE 20 MG TAB 056966 PREDNISONE Inactive TESSALON PERLES 100 MG CAP 1 to 2 tablets by mouth 3 times daily as needed for cough TESSALON PERLES 100 MG CAP 389575 BENZONATATE Inactive POTASSIUM CHLORIDE CR 10 MEQ CPCR 1 capsule by mouth daily 02/14 POTASSIUM CHLORIDE CR 10 MEQ CPCR POTASSIUM CHLORIDE Inactive NITROSTAT 0.4 MG SUBL 1 tab under tongueas needed for chest pain ( may take 3 total, 5 min apart, then call 911) NITROSTAT 0.4 MG SUBL 779762 NITROGLYCERIN Inactive LOVASTATIN 40 MG TABS 1 pill by mouth nightly for cholesterol LOVASTATIN 40 MG TABS 757005 LOVASTATIN Inactive CEFDINIR 300 MG ORAL CAPS take 1 cap po bid x 10 days CEFDINIR 300 MG ORAL CAPS 582879 CEFDINIR Inactive ACEBUTOLOL HCL 200 MG CAPS 1 cap in the morning and 2 caps in the evening ACEBUTOLOL HCL 200 MG CAPS 320298 ACEBUTOLOL HCL Inactive VENTOLIN HFA 108 (90 [...] for 4 days PREDNISONE 20 MG TAB 193846 PREDNISONE Inactive LOVASTATIN 40 MG ORAL TABS Take 1 tab po every hs LOVASTATIN 40 MG ORAL TABS 894920 LOVASTATIN Inactive DILAUDID 2 MG ORAL TABS Take 1/2 tab po every 4 hours as needed for pain 2014 DILAUDID 2 MG ORAL TABS 829785 HYDROMORPHONE HCL Inactive AMITRIPTYLINE HCL 25 MG ORAL TABS 1 q hs prn AMITRIPTYLINE HCL 25 MG ORAL TABS 659074 AMITRIPTYLINE HCL Inactive MECLIZINE HCL 25 MG TAB 1 tablet three times daily for 3 days, then 1/2 tab three times daily for 3 days. MECLIZINE HCL 25 MG TAB 324567 MECLIZINE HCL Inactive AMLODIPINE BESYLATE 5 MG ORAL TABS Take 1 tab po daily AMLODIPINE BESYLATE 5 MG ORAL TABS 160524 AMLODIPINE BESYLATE Inactive TOPIRAMATE 25 MG TABS 1 tab po BID TOPIRAMATE 25 MG TABS 005172 TOPIRAMATE Inactive PREDNISONE 20 MG TAB 1 tablet twice daily for 2 days, then 1 tablet once daily for 2 days PREDNISONE 20 MG TAB 003690 PREDNISONE Inactive PREDNISONE 20 MG TAB 1 tab twice daily for 3 day, then one daily for three days PREDNISONE 20 MG TAB 187467 PREDNISONE Inactive NIFEDIPINE ER 30 MG ORAL [id number] 1 daily NIFEDIPINE ER 30 MG ORAL [id number] NIFEDIPINE Inactive AMLODIPINE BESYLATE 5 MG TABS 1 tablet by mouth daily AMLODIPINE BESYLATE 5 MG TABS 798886 AMLODIPINE BESYLATE Inactive AZITHROMYCIN 250 MG TABS 2 po qd x 1 day, then 1 po qd x 4 days AZITHROMYCIN 250 MG TABS 8189817 AZITHROMYCIN Inactive AZITHROMYCIN 250 MG TABS 2 po qd x 1 day, then 1 po qd x 4 days AZITHROMYCIN 250 MG TABS 4355963 AZITHROMYCIN Inactive PREDNISONE 20 MG TAB 2 po qd x 5 days PREDNISONE 20 MG TAB 820644 PREDNISONE Inactive Vital Signs Date Name Value [...] Panel - Chemistry sodium, serum 137 mmol/L 151-150 0045/01/03 potassium, serum 3.4 mmol/L 3.5-5.2 chloride, serum 102 mmol/L 98-107 carbon dioxide, venous blood 29.2 mmol/L 21.0-32.0 blood glucose 87 mg/dL 65-110 calcium, serum 8.5 mg/dL 8.5-10.1 urea nitrogen, blood 8 mg/dL 7-18 creatinine, serum 0.82 mg/dL 0.55-1.30 sodium, serum 140 mmol/L 328-323 9271/07/13 potassium, serum 3.2 mmol/L 3.5-5.2 chloride, serum [...] ... - Chemistry sodium, serum 141 mmol/L 095-894 6432/08/07 carbon dioxide, venous blood 34.0 mmol/L 21.0-32.0 [...] Magnesium - Chemistry cholesterol, serum 180 mg/dL 982-151 5215/08/08 triglyceride, serum, fasting 92 mg/dL 30-200 HDL cholesterol, serum 66 mg/dL 32-96 LDL cholesterol, serum 96 mg/dL 0-130 sodium, serum 142 mmol/L 981-363 1575/08/08 carbon dioxide, venous blood 27.4 mmol/L 21.0-32.0 [...] 10.0-20.0 Encounters Code Encounter Date Provider Facility CPT-40293 Level 4 Est. Patient 14:45:25 CDT Harinder Hernandez [facility] CPT-87664 Level 4 Est. Patient 09:15:13 CDT Harinder Cr [facility] CPT-65298 Level 3 Est. Patient 11:51:58 CDT Harinder Cr [facility] CPT-16751 Level 3 Est. Patient 11:30:05 CDT Harinder Cr [facility] CPT-82520 Level 4 Est. Patient 10:19:23 CDT Harinder Cr [facility] CPT-91528 Level 3 Est. Patient 09:58:58 CDT Harinder Cr [facility] CPT-78271 Level 3 Est. Patient 12:37:21 CDT Harinder Cr [facility] CPT-97784 Level 3 Est. Patient 18:37:17 CDT Harinder Cr [facility] CPT-74895 Level 4 Est. Patient 11:15:54 CDT Nettie Rohith [facility] [place] CPT-47125 Level 3 Est. Patient 16:42:24 CDT Harinder Cr [facility] CPT-81534 Level 3 Est. Patient 15:03:36 CDT Harinder Cr [facility] CPT-49303 Level 3 Est. Patient 15:03:20 CDT Harinder Cr [facility] CPT-54836 Level 3 Est. Patient 12:14:34 CDT Harinder Shaye [facility] CPT-04769 Level 3 Est. Patient 13:47:15 CDT Harinder Cr [facility] CPT-22253 Level 3 Est. Patient 14:08:24 CDT Harinder Cr [facility] CPT-06135 Level 3 Est. Patient 10:07:[address] [facility] CPT-91006 Level 3 Est. Patient 10:06:[address] [facility] CPT-88273 Level 3 Est. Patient 15:53:29 CDT Jae Morgan MD [facility] CPT-91202 Level 3 Est. Patient 17:19:[address] [facility] CPT-74412 Level 3 Est. Patient 11:13:[address] [facility] CPT-69878 Level 3 Est. Patient 09:03:58 CDT Harinder Hernandez [facility] CPT-39144 Level 3 Est. Patient 14:46:45 [employer] Harinder Hernandez [facility] CPT-42932 Level 3 Est. Patient 09:35:49 [employer] Harinder Hernandez [facility] CPT-21741 Level 3 Est. Patient 09:29:37 [employer] Harinder Hernandez [facility] CPT-20037 Level 3 Est. Patient 15:51:[address] [facility] CPT-13372 Level 3 Est. Patient 18:13:[address] [facility] CPT-07763 Level 3 Est. Patient 10:44:19 CDT Harinder Shaye Hernandez [facility] CPT-12312 Level 4 Est. Patient 10:07:19 [employer] Harinder Shaye Hernandez [facility] CPT-51881 Level 3 Est. Patient 15:59:32 [employer] Harinder Cr [facility] Procedures Code Procedure Name Date Entry Date Standard Description CPT-84480 Abd compl w upright - XRAY USE ONLY 14:48:09 CDT 02/18 CPT-35578 Port a cath flush 13:46:05 CDT CPT-16497 Hip, complete, 2-3 views - XRAY USE ONLY 10:28:40 CDT CPT-67443 BMP - LAB USE ONLY 16:45:09 [employer] CPT-87836 Port a cath flush 12:00:13 [employer] CPT-TCMM Transitional Care Mgmt-Moderate 11:20:16 [employer] CPT-54841 First Vx - Ix admin for Medicare patients 17:35:15 CDT CPT-37635 Fluzone Preservative Free Intramuscular Suspension 17:35 :15 CDT CPT-36995 Microalbumin - LAB USE ONLY 11:52:05 CDT CPT-TCMM Transitional Care Mgmt-Moderate 11:33:57 CDT CPT-94740 No Charge Offi Visit 14:11:29 CDT CPT-34045 Magnesium - LAB USE ONLY 10:45:44 CDT CPT-26346 Lipid - LAB USE ONLY 10:45:44 CDT CPT-83956 CBC - LAB USE ONLY 10:45:44 CDT CPT-94227 Venipuncture Draw Fee 10:45:43 CDT CPT-10990 Venipuncture Draw Fee 18:21:27 CDT CPT-JTINJ Asp/Joint Injection 18:38:04 CDT CPT-58549 Immunization Each Additional Inj 17:38:04 CDT CPT-86048 Immunization Single Admin 17:38:04 CDT CPT-12950 Prevnar 13 17:38:04 CDT CPT-01128 Fluzone Quadrivalent preservative free (>=3yrs.) 17:38: 04 CDT CPT-37195 No Charge Offi Visit 11:14:03 CDT CPT-34136 Chest 2V Frontal and Lat 14:00:18 CDT CPT-OV Office Visit 16:10:28 CDT CPT-JTINJ Asp/Joint Injection 09:03:57 CDT CPT-Cryo Cryotherapy 09:35:49 [employer] CPT-JTINJ Asp/Joint Injection 09:34:45 [employer] CPT-J2930 Solu Medrol 125 mg (Methyl Prednisolone Sodium Succinate) 20:37:27 CDT CPT-01998 Abx/Therapy Injection 20:37:27 CDT CPT-33591 Port a cath flush 08:15:51 CDT CPT-72241 Port a cath flush 09:54:16 CDT CPT-72301 Port a cath flush 09:38:02 CDT CPT-20163 Port a cath flush 11:00:27 [employer]
--- OUTSIDE RECORDS SUMMARY | 2017-12-29 01:56 | XMS REPORT | Clinical Summary ---
Author Author Admin, QIE Organization [facility] Address Unknown Phone Unavailable Allergies, Adverse [...] 1 capsule twice daily 10 days CEFDINIR 22148814311 Active Harinder Hernandez DO Active SUPER CALCIUM 600 + D3 TABLET CALCIUM CARBONATE-VITAMIN D TABS 22143979832 Active Meenu Alejo LPN Active SPIRONOLACTONE 25 MG ORAL TABLET 1 tablet by mouth daily SPIRONOLACTONE 76178207360 No Longer Active Jeri Nieto Active PREDNISONE 20 MG ORAL TABLET 2 tablets by mouth today, then 1 tablet by mouth days 2-3 PREDNISONE 08177436820 No Longer Active Jeri Nieto Active NITROSTAT 0.4 MG SUBLINGUAL TABLET SUBLINGUAL 1 tab SL q5min PRN chest pain NITROGLYCERIN 38199096006 Active Meenu Alejo LPN Active THEOPHYLLINE ER 300 MG ORAL TABLET EXTENDED RELEASE 12 HOUR 1 po BID THEOPHYLLINE 55487896765 Active Meenu Alejo LPN Active POTASSIUM CHLORIDE ER 20 MEQ ORAL TABLET EXTENDED RELEASE 1 po q day POTASSIUM CHLORIDE 08460200934 Active Kortney Mccain Active POTASSIUM CHLORIDE 20 MEQ ORAL PACKET 1 tab po q day POTASSIUM CHLORIDE 39533001907 No Longer Active Kortney Mccain Active POTASSIUM CHLORIDE ER 10 MEQ ORAL CAPSULE EXTENDED RELEASE 1 capsule BID 2016 POTASSIUM CHLORIDE 57644192639 No Longer Active Kortney Mccain Active LASIX 20 MG ORAL TABLET 1 tablet by mouth every morning FUROSEMIDE 91332330913 No Longer Active Kortney Mccain Active FLUOXETINE HCL 10 MG ORAL CAPSULE 1 po qd for depression/anxiety FLUOXETINE HCL 43986704966 Active Meenu Alejo LPN Active VOLTAREN 1 % TRANSDERMAL GEL apply q 6-8 hour to left arm as needed for pain DICLOFENAC SODIUM 93777338357 Active Kortney Mccain Active ALBUTEROL SULFATE (2.5 MG/3ML) 0.083% INHALATION NEBULIZATION SOLUTION 1 vial neb q 4hrs for severe asthma. 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 NIFEDIPINE 14878403549 Active Kortney Mccain Active AMLODIPINE BESYLATE 5 MG ORAL TABLET 1 tablet by mouth daily 2016 AMLODIPINE BESYLATE 19686043633 No Longer Active Harinder Hernandez DO Active TOPAMAX 25 MG ORAL TABLET 1 tab po BID TOPIRAMATE 44938483699 Active Kortney Mccain Active FLUTICASONE PROPIONATE 50 MCG/ACT NASAL SUSPENSION 2 sprays per nostril daily PRN Allergies FLUTICASONE PROPIONATE 32578379008 Active Meenu Alejo LPN Active NIFEDIPINE ER 30 MG ORAL TABLET EXTENDED RELEASE 24 HOUR 1 daily NIFEDIPINE 42661285540 No Longer Active Harinder Hernandez DO Active FLOVENT HFA 110 MCG/ACT INHALATION AEROSOL 2 puffs inhaled b.i.d. FLUTICASONE PROPIONATE HFA 30831321735 Active Harinder Hernandez DO Active EPIPEN 2-BRUNA 0.3 MG/0.3ML INJECTION SOLUTION AUTO-INJECTOR 1 INJ NEEDED EPINEPHRINE 34843894717 Active Meenu Alejo LPN Active PREDNISONE 20 MG ORAL TABLET 1 tab twice daily for 3 day, then one daily for three days PREDNISONE 83871895622 No Longer Active Harinder Hernandez DO Active PREDNISONE 20 MG ORAL TABLET 1 tablet twice daily for 2 days, then 1 tablet once daily for 2 days PREDNISONE 38764373295 No Longer Active Harinder Hernandez DO Active ASMANEX 120 METERED DOSES 220 MCG/INH INHALATION AEROSOL POWDER BREATH ACTIVATED 2 puffs orally twice daily MOMETASONE FUROATE 68815578830 Active Jeri Sosa LPN Active TOPIRAMATE 25 MG ORAL TABLET 1 tab po BID TOPIRAMATE 57216481458 No Longer Active Nettie Newberry APRN Active AMLODIPINE BESYLATE 5 MG ORAL TABLET Take 1 tab po daily AMLODIPINE BESYLATE 28502758904 No Longer Active Nettie Newberry APRN Active MECLIZINE HCL 25 MG ORAL TABLET 1 tablet three times daily for 3 days, then 1/ 2 tab three times daily for 3 days. MECLIZINE HCL 38462340165 No Longer Active Nettie Newberry APRN Active AMITRIPTYLINE HCL 25 MG ORAL TABLET 1 q hs prn AMITRIPTYLINE HCL 62240824556 No Longer Active Nettie Newberry APRN Active DILAUDID 2 MG ORAL TABLET Take 1/2 tab po every 4 hours as needed for pain HYDROMORPHONE HCL 88146426934 No Longer Active Nettie Newberry APRN Active CLOPIDOGREL BISULFATE 75 MG ORAL TABLET 1 tab by mouth once daily CLOPIDOGREL BISULFATE 31784041518 Active Meenu Alejo LPN Active ATORVASTATIN CALCIUM 10 MG ORAL TABLET 1 at bedtime ATORVASTATIN CALCIUM 59491064332 Active Kortney Mccain Active LOVASTATIN 40 MG ORAL TABLET Take 1 tab po every hs LOVASTATIN 93828690400 No Longer Active Harinder Hernandez DO Active PREDNISONE 20 MG ORAL TABLET 2 tabs daily for 4 days, 1 tab daily for 4 days, 1/2 tab daily for 4 days PREDNISONE 71764962819 No Longer Active Harinder Hernandez DO Active LEVAQUIN 500 MG ORAL TABLET Take 1 tab po daily x 8 days LEVOFLOXACIN 77209612958 No Longer Active Harinder Hernandez DO Active VENTOLIN HFA 108 (90 Base) MCG/ACT INHALATION AEROSOL SOLUTION 2 -4 puffs four times a day PRN ALBUTEROL SULFATE 40051756703 No Longer Active Jeri Sosa LPN Active ACEBUTOLOL HCL 200 MG ORAL CAPSULE 1 cap in the morning and 2 caps in the evening ACEBUTOLOL HCL 16932883393 No Longer Active Harinder Hernandez DO Active CEFDINIR 300 MG ORAL CAPSULE take 1 cap po bid x 10 days CEFDINIR 79309417013 No Longer Active Harinder Hernandez DO Active LOVASTATIN 40 MG ORAL TABLET 1 pill by mouth nightly for cholesterol LOVASTATIN 40945017298 No Longer Active Nettie Newberry APRN Active NITROSTAT 0.4 MG SUBLINGUAL TABLET SUBLINGUAL 1 tab under tongueas needed for chest pain ( may take 3 total, 5 min apart, then call 911) NITROGLYCERIN 97162980392 No Longer Active Nettie Newberry APRN Active POTASSIUM CHLORIDE ER 10 MEQ ORAL CAPSULE EXTENDED RELEASE 1 capsule by mouth daily POTASSIUM CHLORIDE 71397719115 No Longer Active Nettie Newberry APRN Active TESSALON PERLES 100 MG ORAL CAPSULE 1 to 2 tablets by mouth 3 times daily as needed for cough BENZONATATE 94474909083 No Longer Active Nettie Newberry APRN Active PREDNISONE 20 MG ORAL TABLET 2 po qd x 5 days PREDNISONE 11828859208 No Longer Active Jae Morgan MD Active AZITHROMYCIN 250 MG ORAL TABLET 2 po qd x 1 day, then 1 po qd x 4 days 12/30 AZITHROMYCIN 33684486986 No Longer Active Jae Morgan MD Active PREDNISONE 20 MG ORAL TABLET 1 tab twice daily for 3 day, then one daily for three days PREDNISONE 40245609149 No Longer Active Jae Morgan MD Active SINGULAIR 10 MG ORAL TABLET 1 pill by mouth every evening for breathing. 2014 MONTELUKAST SODIUM 18501979593 Active Meenu Alejo LPN Active TYLENOL 325 MG ORAL TABLET 3 by mouth q4h as needed ACETAMINOPHEN 83245040633 Active Harinder Hernandez DO Active POTASSIUM CHLORIDE ER 10 MEQ ORAL TABLET EXTENDED RELEASE take 1 tab po daily POTASSIUM CHLORIDE 74243559242 No Longer Active Harinder Hernandez DO Active PREDNISONE 20 MG ORAL TABLET 1 TID x 2 days, then 1 BID x 3 days, then 1 Daily x 3 days, then stop PREDNISONE 96420905760 No Longer Active Jillina Frazell MAHNEDRA Active LEVAQUIN 500 MG ORAL TABLET 1 tablet by mouth daily LEVOFLOXACIN 15348684630 No Longer Active Jillina Frazell [employer] Active NEURONTIN 300 MG ORAL CAPSULE 1 cap by mouth three times daily for restless leg GABAPENTIN 38721094637 No Longer Active Harinder Hernandez DO Active BENZONATATE 100 MG ORAL CAPSULE 1 cap po TID PRN BENZONATATE 94095203716 No Longer Active Harinder Hernandez DO Active MONTELUKAST SODIUM 10 MG ORAL TABLET 1 tab po in the evening 2014 MONTELUKAST SODIUM 22192612914 No Longer Active Harinder Hernandez DO Active MUPIROCIN 2 % EXTERNAL OINTMENT apply to affected area BID x 14 days MUPIROCIN 05042823438 No Longer Active Harinder Hernandez DO Active TYLENOL EXTRA STRENGTH 500 MG ORAL TABLET as needed ACETAMINOPHEN 02528617705 No Longer Active Harinder Hernandez DO Active PREDNISONE 10 MG ORAL TABLET 1 tab po daily PREDNISONE 02603470099 No Longer Active Harinder Hernandez DO Active PREDNISONE 20 MG ORAL TABLET 2 tabs daily for 4 days, 1 tab daily for 4 days, 1/2 tab daily for 4 days PREDNISONE 51737177023 No Longer Active Harinder Hernandez DO Active AZITHROMYCIN 250 MG ORAL TABLET 2 po qd x 1 day, then 1 po qd x 4 days 04/06 AZITHROMYCIN 41329673970 No Longer Active Harinder Hernandez DO Active PREDNISONE 20 MG ORAL TABLET 3 tabs today, then 1 tab twice daily for 3 day, then one daily for three days PREDNISONE 20511455895 No Longer Active Harinder Hernandez DO Active NIFEDIAC CC 30 MG ORAL TABLET EXTENDED RELEASE 24 HOUR 1 tablet daily for raynaud's syndrome NIFEDIPINE 45770994307 No Longer Active Tawnya Pardo MA Active AMBIEN 10 MG ORAL TABLET 1/2 tab by mouth at bedtime as needed for sleep 2013 ZOLPIDEM TARTRATE 01582995927 Active Meenu Alejo LPN Active CLONAZEPAM 1 MG ORAL TABLET 1 tablet at bedtime for insomnia and restless legs CLONAZEPAM 96303220748 Active Meenu Alejo LPN Active CLONAZEPAM 0.5 MG ORAL TABLET 1 tab po daily CLONAZEPAM 62703097577 No Longer Active Harinder Hernandez DO Active PREDNISONE 10 MG ORAL TABLET 1 tablet daily for COPD PREDNISONE 88289354002 Active Kortney Mccain Active PROAIR HFA 108 (90 Base) MCG/ACT INHALATION AEROSOL SOLUTION 2 puffs four times a day as needed ALBUTEROL SULFATE 98753561654 Active Harinder Hernandez DO Active FLOVENT HFA 110 MCG/ACT INHALATION AEROSOL 2 puffs inhaled b.i.d. FLUTICASONE PROPIONATE HFA 62538525490 Active Kortney Mccain Active ACIPHEX 20 MG ORAL TABLET DELAYED RELEASE 1 tab po daily RABEPRAZOLE SODIUM 84683439981 Active Meenu Melo CHEN Active CLONAZEPAM 0.5 MG ORAL TABLET 1 tab po daily CLONAZEPAM 0.5 MG ORAL TABLET 517563 CLONAZEPAM Inactive PREDNISONE 20 MG ORAL TABLET 3 tabs today, then 1 tab twice daily for 3 day, then one daily for three days PREDNISONE 20 MG ORAL TABLET 625411 PREDNISONE Inactive PREDNISONE 20 MG ORAL TABLET 2 tabs daily for 4 days, 1 tab daily for 4 days, 1/2 tab daily for 4 days PREDNISONE 20 MG ORAL TABLET 648605 PREDNISONE Inactive PREDNISONE 10 MG ORAL TABLET 1 tab po daily PREDNISONE 10 MG ORAL TABLET 338306 PREDNISONE Inactive TYLENOL EXTRA STRENGTH 500 MG ORAL TABLET as needed TYLENOL EXTRA STRENGTH 500 MG ORAL TABLET 226523 ACETAMINOPHEN Inactive MUPIROCIN 2 % EXTERNAL OINTMENT apply to affected area BID x 14 days MUPIROCIN 2 % EXTERNAL OINTMENT 294246 MUPIROCIN Inactive MONTELUKAST SODIUM 10 MG ORAL TABLET 1 tab po in the evening 2014 MONTELUKAST SODIUM 10 MG ORAL TABLET 221009 MONTELUKAST SODIUM Inactive BENZONATATE 100 MG ORAL CAPSULE 1 cap po TID PRN BENZONATATE 100 MG ORAL CAPSULE 104126 BENZONATATE Inactive NEURONTIN 300 MG ORAL CAPSULE 1 cap by mouth three times daily for restless leg NEURONTIN 300 MG ORAL CAPSULE 212702 GABAPENTIN Inactive LEVAQUIN 500 MG ORAL TABLET 1 tablet by mouth daily LEVAQUIN 500 MG ORAL TABLET 622557 LEVOFLOXACIN Inactive PREDNISONE 20 MG ORAL TABLET 1 TID x 2 days, then 1 BID x 3 days, then 1 Daily x 3 days, then stop PREDNISONE 20 MG ORAL TABLET 622846 PREDNISONE Inactive POTASSIUM CHLORIDE ER 10 MEQ ORAL TABLET EXTENDED RELEASE take 1 tab po daily POTASSIUM CHLORIDE ER 10 MEQ ORAL TABLET EXTENDED RELEASE POTASSIUM CHLORIDE Inactive PREDNISONE 20 MG ORAL TABLET 1 tab twice daily for 3 day, then one daily for three days PREDNISONE 20 MG ORAL TABLET 993163 PREDNISONE Inactive TESSALON PERLES 100 MG ORAL CAPSULE 1 to 2 tablets by mouth 3 times daily as needed for cough TESSALON PERLES 100 MG ORAL CAPSULE 680638 BENZONATATE Inactive POTASSIUM CHLORIDE ER 10 MEQ ORAL CAPSULE EXTENDED RELEASE 1 capsule by mouth daily POTASSIUM CHLORIDE ER 10 MEQ ORAL CAPSULE EXTENDED RELEASE POTASSIUM CHLORIDE Inactive NITROSTAT 0.4 MG SUBLINGUAL TABLET SUBLINGUAL 1 tab under tongueas needed for chest pain ( may take 3 total, 5 min apart, then call 911) NITROSTAT 0.4 MG SUBLINGUAL TABLET SUBLINGUAL 112494 NITROGLYCERIN Inactive LOVASTATIN 40 MG ORAL TABLET 1 pill by mouth nightly for cholesterol LOVASTATIN 40 MG ORAL TABLET 623639 LOVASTATIN Inactive CEFDINIR 300 MG ORAL CAPSULE take 1 cap po bid x 10 days CEFDINIR 300 MG ORAL CAPSULE 516835 CEFDINIR Inactive ACEBUTOLOL HCL 200 MG ORAL CAPSULE 1 cap in the morning and 2 caps in the evening ACEBUTOLOL HCL 200 MG ORAL CAPSULE 842827 ACEBUTOLOL HCL Inactive VENTOLIN HFA 108 (90 Base) MCG/ACT INHALATION AEROSOL SOLUTION 2 -4 puffs four times a day PRN VENTOLIN HFA 108 (90 Base) MCG/ ACT INHALATION AEROSOL SOLUTION ALBUTEROL SULFATE Inactive LEVAQUIN 500 MG ORAL TABLET Take 1 tab po daily x 8 days LEVAQUIN 500 MG ORAL TABLET 090024 LEVOFLOXACIN Inactive PREDNISONE 20 MG ORAL TABLET 2 tabs daily for 4 days, 1 tab daily for 4 days, 1/2 tab daily for 4 days PREDNISONE 20 MG ORAL TABLET 912855 PREDNISONE Inactive LOVASTATIN 40 MG ORAL TABLET Take 1 tab po every hs LOVASTATIN 40 MG ORAL TABLET 670756 LOVASTATIN Inactive DILAUDID 2 MG ORAL TABLET Take 1/2 tab po every 4 hours as needed for pain DILAUDID 2 MG ORAL TABLET 460840 HYDROMORPHONE HCL Inactive AMITRIPTYLINE HCL 25 MG ORAL TABLET 1 q hs prn AMITRIPTYLINE HCL 25 MG ORAL TABLET 145170 AMITRIPTYLINE HCL Inactive MECLIZINE HCL 25 MG ORAL TABLET 1 tablet three times daily for 3 days, then 1/ 2 tab three times daily for 3 days. MECLIZINE HCL 25 MG ORAL TABLET 976846 MECLIZINE HCL Inactive AMLODIPINE BESYLATE 5 MG ORAL TABLET Take 1 tab po daily AMLODIPINE BESYLATE 5 MG ORAL TABLET 336250 AMLODIPINE BESYLATE Inactive TOPIRAMATE 25 MG ORAL TABLET 1 tab po BID TOPIRAMATE 25 MG ORAL TABLET 708141 TOPIRAMATE Inactive PREDNISONE 20 MG ORAL TABLET 1 tablet twice daily for 2 days, then 1 tablet once daily for 2 days PREDNISONE 20 MG ORAL TABLET 732948 PREDNISONE Inactive PREDNISONE 20 MG ORAL TABLET 1 tab twice daily for 3 day, then one daily for three days PREDNISONE 20 MG ORAL TABLET 282883 PREDNISONE Inactive NIFEDIPINE ER 30 MG ORAL TABLET EXTENDED RELEASE 24 HOUR 1 daily NIFEDIPINE ER 30 MG ORAL TABLET EXTENDED RELEASE 24 HOUR NIFEDIPINE Inactive AMLODIPINE BESYLATE 5 MG ORAL TABLET 1 tablet by mouth daily 2016 AMLODIPINE BESYLATE 5 MG ORAL TABLET 640711 AMLODIPINE BESYLATE Inactive LASIX 20 MG ORAL TABLET 1 tablet by mouth every morning LASIX 20 MG ORAL TABLET 652722 FUROSEMIDE Inactive POTASSIUM CHLORIDE ER 10 MEQ ORAL CAPSULE EXTENDED RELEASE 1 capsule BID 2016 POTASSIUM CHLORIDE ER 10 MEQ ORAL CAPSULE EXTENDED RELEASE POTASSIUM CHLORIDE Inactive POTASSIUM CHLORIDE 20 MEQ ORAL PACKET 1 tab po q day POTASSIUM CHLORIDE 20 MEQ ORAL PACKET 1541648 POTASSIUM CHLORIDE Inactive PREDNISONE 20 MG ORAL TABLET 2 tablets by mouth today, then 1 tablet by mouth days 2-3 PREDNISONE 20 MG ORAL TABLET 864640 PREDNISONE Inactive SPIRONOLACTONE 25 MG ORAL TABLET 1 tablet by mouth daily SPIRONOLACTONE 25 MG ORAL TABLET 723185 SPIRONOLACTONE Inactive AZITHROMYCIN 250 MG ORAL TABLET 2 po qd x 1 day, then 1 po qd x 4 days 04/06 AZITHROMYCIN 250 MG ORAL TABLET 908191 AZITHROMYCIN Inactive AZITHROMYCIN 250 MG ORAL TABLET 2 po qd x 1 day, then 1 po qd x 4 days 12/30 AZITHROMYCIN 250 MG ORAL TABLET 591850 AZITHROMYCIN Inactive PREDNISONE 20 MG ORAL TABLET 2 po qd x 5 days PREDNISONE 20 MG ORAL TABLET 095172 PREDNISONE Inactive Vital Signs Date Name Value [...] Panel - Chemistry sodium, serum 140 mmol/L 537-214 2238/07/13 potassium, serum 3.2 mmol/L 3.5-5.2 chloride, serum 103 mmol/L 98-107 carbon dioxide, venous blood 26.9 mmol/L 21.0-32.0 blood glucose 93 mg/dL 65-110 calcium, serum 9.2 mg/dL 8.5-10.1 urea nitrogen, blood 13 mg/dL 7-18 creatinine, serum 0.84 mg/dL 0.60-1.30 sodium, serum 140 mmol/L 278-521 9736/08/21 potassium, serum 3.8 mmol/L 3.5-5.2 chloride, serum 105 mmol/L 98-107 carbon dioxide, venous blood 26.9 mmol/L 21.0-32.0 blood glucose 85 mg/dL 65-110 calcium, serum 8.8 mg/dL 8.5-10.1 urea nitrogen, blood 11 mg/dL 7-18 creatinine, serum 0.95 mg/dL 0.60-1.30 sodium, serum 142 mmol/L 653-299 4899/06/14 potassium, serum 3.3 mmol/L 3.5-5.2 chloride, serum [...] ... - Chemistry sodium, serum 141 mmol/L 318-637 7092/08/07 carbon dioxide, venous blood 34.0 mmol/L 21.0-32.0 [...] 1.40 mg/dL 0.00-1.00 cholesterol, serum 192 mg/dL 421-067 3876/10/19 triglyceride, serum, fasting 71 mg/dL 30-200 HDL cholesterol, serum 72 mg/dL 32-60 LDL cholesterol, serum 106 mg/dL 0-130 Lab Report: Rapid Strep - Lab Microbial identification kit, rapid strep method Negative Negative Lab Report: THEOPHYLLINE - Toxicology theophylline level, serum 3.1 ug/mL 10.0-20.0 Encounters Code Encounter Date Provider Facility CPT-40807 Level 3 Est. Patient 14:31:43 CDT Harinder Hernandez [facility] CPT-78430 Level 4 Est. Patient 10:17:51 ACCOUNT SUPPORT REP Harinder Hernandez [facility] CPT-67504 Level 3 Est. Patient 12:36:15 ACCOUNT SUPPORT REP Harinder Hernandez [facility] CPT-72242 Level 3 Est. Patient 15:14:45 ACCOUNT SUPPORT REP Harinder Hernandez [facility] CPT-73810 Level 4 Est. Patient 14:45:25 CDT Harinder Hernandez [facility] CPT-83586 Level 4 Est. Patient 09:15:13 CDT Harinder Hernandez [facility] CPT-52985 Level 3 Est. Patient 11:51:58 CDT Harinder Cr [facility] CPT-35710 Level 3 Est. Patient 11:30:05 CDT Harinder Cr [facility] CPT-82402 Level 4 Est. Patient 10:19:23 CDT Harinder Cr [facility] CPT-42294 Level 3 Est. Patient 09:58:58 CDT Harinder Cr [facility] CPT-60293 Level 3 Est. Patient 12:37:21 CDT Harinder Cr [facility] CPT-85196 Level 3 Est. Patient 18:37:17 CDT Harinder Cr [facility] CPT-16943 Level 4 Est. Patient 11:15:54 CDT Nettie Newberry [facility] CPT-29229 Level 3 Est. Patient 16:42:24 CDT Harinder Cr [facility] CPT-30066 Level 3 Est. Patient 15:03:36 CDT Harinder Cr [facility] CPT-02291 Level 3 Est. Patient 15:03:20 CDT Harinder Cr [facility] CPT-23227 Level 3 Est. Patient 12:14:34 CDT Harinder Cr [facility] CPT-73726 Level 3 Est. Patient 13:47:15 CDT Harinder Cr [facility] CPT-51978 Level 3 Est. Patient 14:08:24 CDT Harinder Cr [facility] CPT-26351 Level 3 Est. Patient 10:07:15 CDT Harinder Hernandez [facility] CPT-78841 Level 3 Est. Patient 10:06:59 CDT Harinder Hernandez [facility] CPT-48878 Level 3 Est. Patient 15:53:29 CDT Jae Morgan MD [facility] CPT-41752 Level 3 Est. Patient 17:19:04 CDT Harinder Hernandez [facility] CPT-92958 Level 3 Est. Patient 11:13:01 CDT Harinder Hernandez [facility] CPT-53544 Level 3 Est. Patient 09:03:58 CDT Harinder Hernandez [facility] CPT-07544 Level 3 Est. Patient 14:46:45 ACCOUNT SUPPORT REP Harinder Hernandez [facility] CPT-14417 Level 3 Est. Patient 09:35:49 ACCOUNT SUPPORT REP Harinder Hernandez [facility] CPT-43429 Level 3 Est. Patient 09:29:37 ACCOUNT SUPPORT REP Harinder Hernandez [facility] CPT-27625 Level 3 Est. Patient 15:51:07 CDT Harinder Hernandez [facility] CPT-08291 Level 3 Est. Patient 18:13:13 CDT Harinder Hernandez [facility] CPT-55575 Level 3 Est. Patient 10:44:19 CDT Harinder Hernandez [facility] CPT-75669 Level 4 Est. Patient 10:07:19 ACCOUNT SUPPORT REP Harinder Hernandez [facility] CPT-42809 Level 3 Est. Patient 15:59:32 ACCOUNT SUPPORT REP Harinder Shaye Hernandez [facility] Procedures Code Procedure Name Date Entry Date Standard Description CPT-20867 Bone Density - XRAY USE ONLY 14:43:42 CDT CPT-G0009 Administration of Pneumococcal Vaccine 10:33:25 ACCOUNT SUPPORT REP CPT-05752 Pneumovax 23 Injection Injectable 25 MCG/0.5ML 10:33:25 ACCOUNT SUPPORT REP CPT-43898 First Vx - Ix admin for Medicare patients 10:33:25 ACCOUNT SUPPORT REP CPT-30645 Fluzone Quadrivalent Intramuscular Suspension 0.5 ML 10: 33:25 ACCOUNT SUPPORT REP CPT-Cryo Cryotherapy 10:17:51 ACCOUNT SUPPORT REP CPT-G0438 Initial Annual Wellness Exam 10:08:59 ACCOUNT SUPPORT REP CPT-13704 Abd compl w upright - XRAY USE ONLY 14:48:09 CDT 02/18 CPT-55458 Port a cath flush 13:46:05 CDT CPT-06973 Hip, complete, 2-3 views - XRAY USE ONLY 10:28:40 CDT CPT-03986 BMP - LAB USE ONLY 16:45:09 ACCOUNT SUPPORT REP CPT-45459 Port a cath flush 12:00:13 ACCOUNT SUPPORT REP CPT-TCMM Transitional Care Mgmt-Moderate 11:20:16 ACCOUNT SUPPORT REP CPT-35889 First Vx - Ix admin for Medicare patients 17:35:15 CDT CPT-73868 Fluzone Preservative Free Intramuscular Suspension 17:35 :15 CDT CPT-60107 Microalbumin - LAB USE ONLY 11:52:05 CDT CPT-TCMM Transitional Care Mgmt-Moderate 11:33:57 CDT CPT-28096 No Charge Offi Visit 14:11:29 CDT CPT-89797 Magnesium - LAB USE ONLY 10:45:44 CDT CPT-03148 Lipid - LAB USE ONLY 10:45:44 CDT CPT-15073 CBC - LAB USE ONLY 10:45:44 CDT CPT-59113 Venipuncture Draw Fee 10:45:43 CDT CPT-62668 Venipuncture Draw Fee 18:21:27 CDT CPT-JTINJ Asp/Joint Injection 18:38:04 CDT CPT-71323 Immunization Each Additional Inj 17:38:04 CDT CPT-57936 Immunization Single Admin 17:38:04 CDT CPT-13192 Prevnar 13 17:38:04 CDT CPT-32019 Fluzone Quadrivalent preservative free (>=3yrs.) 17:38: 04 CDT CPT-97480 No Charge Offi Visit 11:14:03 CDT CPT-76625 Chest 2V Frontal and Lat 14:00:18 CDT CPT-OV Office Visit 16:10:28 CDT CPT-JTINJ Asp/Joint Injection 09:03:57 CDT CPT-Cryo Cryotherapy 09:35:49 ACCOUNT SUPPORT REP CPT-JTINJ Asp/Joint Injection 09:34:45 ACCOUNT SUPPORT REP CPT-J2930 Solu Medrol 125 mg (Methyl Prednisolone Sodium Succinate) 20:37:27 CDT CPT-08173 Abx/Therapy Injection 20:37:27 CDT CPT-26142 Port a cath flush 08:15:51 CDT CPT-71230 Port a cath flush 09:54:16 CDT CPT-69137 Port a cath flush 09:38:02 CDT CPT-99077 Port a cath flush 11:00:27 ACCOUNT SUPPORT REP
--- OUTSIDE RECORDS SUMMARY | 2017-12-29 01:57 | XMS REPORT | Clinical Summary ---
Author Author Admin, QIE Organization [facility] Address Unknown Phone Unavailable Allergies, Adverse Reactions, [...] vascular catheter Back pain, lumbar 724.2 Resolved aHrinder Hernandez DO Lumbago Insomnia 780.52 Resolved Harinder [...] exacerbation Biceps tendinitis, left 726.12 Resolved Harinder Hernanedz DO Bicipital tenosynovitis Nausea and vomiting 787.01 [...] streptococcus pneumoniae ( Pneumococcus) V03.82 Resolved Harinder Shaey Hernandez DO Need for prophylactic vaccination against [...] tablet once daily for 2 days PREDNISONE 35068851218 Active Harinder Hernandez DO Active ASMANEX 120 METERED DOSES 220 MCG/INH INH AEPB 2 puffs orally twice daily MOMETASONE FUROATE 89819549485 Active Jeri Sosa RPT,RMA Active NIFEDIPINE ER 30 MG ORAL [id number] 1 daily NIFEDIPINE 48571558937 Active Tawnya Pardo MA Active TOPIRAMATE 25 MG TABS 1 tab po BID TOPIRAMATE 64551537976 No Longer Active Nettie Newberry MAHENDRA Active AMLODIPINE BESYLATE 5 MG ORAL TABS Take 1 tab po daily AMLODIPINE BESYLATE 19248508034 No Longer Active Nettie Newberry MAHENDRA Active MECLIZINE HCL 25 MG TAB 1 tablet three times daily for 3 days, then 1/2 tab three times daily for 3 days. MECLIZINE HCL 72634061293 No Longer Active Nettie Newberry CLAIM APPROVER Active AMITRIPTYLINE HCL 25 MG ORAL TABS 1 q hs prn AMITRIPTYLINE HCL 25007771573 No Longer Active Nettie Newberry MAHENDRA Active DILAUDID 2 MG ORAL TABS Take 1/2 tab po every 4 hours as needed for pain 2014 HYDROMORPHONE HCL 79820703017 No Longer Active Nettie Newberry APRN Active CLOPIDOGREL BISULFATE 75 MG ORAL TABS 1 tab by mouth once daily CLOPIDOGREL BISULFATE 62438898408 Active Jeri Sosa RPT,RMA Active ATORVASTATIN CALCIUM 10 MG ORAL TABS 1 at bedtime ATORVASTATIN CALCIUM 68863400792 Active Jeri Sosa RPT,RMA Active LOVASTATIN 40 MG ORAL TABS Take 1 tab po every hs LOVASTATIN 23066512949 No Longer Active Harinder Hernandez DO Active PREDNISONE 20 MG TAB 2 tabs daily for 4 days, 1 tab daily for 4 days, 1/2 tab daily for 4 days PREDNISONE 12712930870 No Longer Active Harinder Hernandez DO Active LEVAQUIN 500 MG ORAL TABS Take 1 tab po daily x 8 days LEVOFLOXACIN 66738528995 No Longer Active Harinder Hernandez DO Active VENTOLIN HFA 108 (90 BASE) MCG/ACT AERS 2 -4 puffs four times a day PRN 2013 ALBUTEROL SULFATE 90511940652 No Longer Active Jeri Sosa RPT,RMA Active ACEBUTOLOL HCL 200 MG CAPS 1 cap in the morning and 2 caps in the evening ACEBUTOLOL HCL 04494260688 No Longer Active Harinder Hernandez DO Active CEFDINIR 300 MG ORAL CAPS take 1 cap po bid x 10 days CEFDINIR 84661901580 No Longer Active Harinder Hernandez DO Active LOVASTATIN 40 MG TABS 1 pill by mouth nightly for cholesterol LOVASTATIN 00891848079 No Longer Active Nettie Newberry APRN Active NITROSTAT 0.4 MG SUBL 1 tab under tongueas needed for chest pain ( may take 3 total, 5 min apart, then call 911) NITROGLYCERIN 21782978975 No Longer Active Nettie Newberry APRN Active POTASSIUM CHLORIDE CR 10 MEQ CPCR 1 capsule by mouth daily 02/14 POTASSIUM CHLORIDE 50584177489 No Longer Active Nettie Newberry APRN Active TESSALON PERLES 100 MG CAP 1 to 2 tablets by mouth 3 times daily as needed for cough BENZONATATE 27799356897 No Longer Active Nettie Newberry APRN Active THEOPHYLLINE ER 200 MG ORAL [id number] Take 1 tab every 12 hours THEOPHYLLINE 30585977245 Active Jeri Sosa RPT,RMA Active PREDNISONE 20 MG TAB 2 po qd x 5 days PREDNISONE 29069602827 No Longer Active Jae Morgan MD Active AZITHROMYCIN 250 MG TABS 2 po qd x 1 day, then 1 po qd x 4 days AZITHROMYCIN 88345070478 No Longer Active Jae Morgan MD Active PREDNISONE 20 MG TAB 1 tab twice daily for 3 day, then one daily for three days PREDNISONE 96363388038 No Longer Active Jae Morgan MD Active SINGULAIR 10 MG TABS 1 pill by mouth every evening for breathing. MONTELUKAST SODIUM 94932385585 Active Tawnya Pardo MA Active TYLENOL 325 MG TAB 3 by mouth q4h as needed ACETAMINOPHEN 01744409612 Active Harinder Hernandez DO Active POTASSIUM CHLORIDE ER 10 MEQ CR-TABS take 1 tab po daily POTASSIUM CHLORIDE 69388001820 No Longer Active Harinder Hernandez DO Active PREDNISONE 20 MG TAB 1 TID x 2 days, then 1 BID x 3 days, then 1 Daily x 3 days, then stop PREDNISONE 55412313172 No Longer Active Jillina Frazell CLAIM APPROVER Active LEVAQUIN 500 MG TAB 1 tablet by mouth daily LEVOFLOXACIN 93000230900 No Longer Active Jillina Frazell CLAIM APPROVER Active NEURONTIN 300 MG CAP 1 cap by mouth three times daily for restless leg 06/22 GABAPENTIN 64845682735 No Longer Active Harinder Hernandez DO Active BENZONATATE 100 MG CAPS 1 cap po TID PRN BENZONATATE 72125756229 No Longer Active Harinder Hernandez DO Active MONTELUKAST SODIUM 10 MG TABS 1 tab po in the evening MONTELUKAST SODIUM 24655523057 No Longer Active Harinder Hernandez DO Active MUPIROCIN 2 % OINT apply to affected area BID x 14 days MUPIROCIN 42241674032 No Longer Active Harinder Hernandez DO Active TYLENOL EXTRA STRENGTH 500 MG TABS as needed ACETAMINOPHEN 97563136700 No Longer Active Harinder Hernandez DO Active PREDNISONE 10 MG TABS 1 tab po daily PREDNISONE 14218774805 No Longer Active Harinder Hernandez DO Active PREDNISONE 20 MG TAB 2 tabs daily for 4 days, 1 tab daily for 4 days, 1/2 tab daily for 4 days PREDNISONE 43207863625 No Longer Active Harinder Hernandez DO Active AZITHROMYCIN 250 MG TABS 2 po qd x 1 day, then 1 po qd x 4 days AZITHROMYCIN 86535453560 No Longer Active Harinder Hernandez DO Active PREDNISONE 20 MG TAB 3 tabs today, then 1 tab twice daily for 3 day, then one daily for three days PREDNISONE 98494632005 No Longer Active Harinder Hernandez DO Active NIFEDIAC CC 30 MG [id number] 1 tablet daily for raynaud's syndrome NIFEDIPINE 99078566844 No Longer Active Tawnya Pardo MA Active AMBIEN 10 MG TAB 1/2 tab by mouth at bedtime as needed for sleep ZOLPIDEM TARTRATE 83869370474 Active Harinder Hernandez DO Active CLONAZEPAM 1 MG TABS 1 tablet at bedtime for insomnia and restless legs 09/14 CLONAZEPAM 31975866958 Active Jeri Sosa RPT,RMA Active CLONAZEPAM 0.5 MG TABS 1 tab po daily CLONAZEPAM 36974550679 No Longer Active Harinder Hernandez DO Active PREDNISONE 10 MG TAB 1 tablet daily for COPD PREDNISONE 75614949311 Active Tawnya Pardo MA Active PROAIR HFA 108 (90 BASE) MCG/ACT AERS 2 puffs four times a day as needed 2012 ALBUTEROL SULFATE 70947540031 Active Tawnya Pardo MA Active FLOVENT HFA 110 MCG/ACT AERO 2 puffs inhaled b.i.d. FLUTICASONE PROPIONATE HFA 90972161804 Active Tawnya Pardo MA Active EPIPEN 0.3 MG/0.3ML URIEL DIRECTED EPINEPHRINE Active Jeri Sosa RPT,RMA Active ACIPHEX 20 MG TBEC 1 tab po daily RABEPRAZOLE SODIUM 01953823872 Active Tawnya Pardo MA Active CLONAZEPAM 0.5 MG TABS 1 tab po daily CLONAZEPAM 0.5 MG TABS 843388 CLONAZEPAM Inactive PREDNISONE 20 MG TAB 3 tabs today, then 1 tab twice daily for 3 day, then one daily for three days PREDNISONE 20 MG TAB 696849 PREDNISONE Inactive PREDNISONE 20 MG TAB 2 tabs daily for 4 days, 1 tab daily for 4 days, 1/2 tab daily for 4 days PREDNISONE 20 MG TAB 200850 PREDNISONE Inactive PREDNISONE 10 MG TABS 1 tab po daily PREDNISONE 10 MG TABS 481872 PREDNISONE Inactive TYLENOL EXTRA STRENGTH 500 MG TABS as needed TYLENOL EXTRA STRENGTH 500 MG TABS 987713 ACETAMINOPHEN Inactive MUPIROCIN 2 % OINT apply to affected area BID x 14 days MUPIROCIN 2 % OINT 861584 MUPIROCIN Inactive MONTELUKAST SODIUM 10 MG TABS 1 tab po in the evening MONTELUKAST SODIUM 10 MG TABS 20010818 MONTELUKAST SODIUM Inactive BENZONATATE 100 MG CAPS 1 cap po TID PRN BENZONATATE 100 MG CAPS 19730321 BENZONATATE Inactive NEURONTIN 300 MG CAP 1 cap by mouth three times daily for restless leg 06/22 NEURONTIN 300 MG CAP 403014 GABAPENTIN Inactive LEVAQUIN 500 MG TAB 1 tablet by mouth daily LEVAQUIN 500 MG TAB 030794 LEVOFLOXACIN Inactive PREDNISONE 20 MG TAB 1 TID x 2 days, then 1 BID x 3 days, then 1 Daily x 3 days, then stop PREDNISONE 20 MG TAB 689701 PREDNISONE Inactive POTASSIUM CHLORIDE ER 10 MEQ CR-TABS take 1 tab po daily POTASSIUM CHLORIDE ER 10 MEQ CR-TABS POTASSIUM CHLORIDE Inactive PREDNISONE 20 MG TAB 1 tab twice daily for 3 day, then one daily for three days PREDNISONE 20 MG TAB 943931 PREDNISONE Inactive TESSALON PERLES 100 MG CAP 1 to 2 tablets by mouth 3 times daily as needed for cough TESSALON PERLES 100 MG CAP 904134 BENZONATATE Inactive POTASSIUM CHLORIDE CR 10 MEQ [...] nightly for cholesterol LOVASTATIN 40 MG TABS 281528 LOVASTATIN Inactive CEFDINIR 300 MG ORAL CAPS take 1 cap po bid x 10 days CEFDINIR 300 MG ORAL CAPS 766088 CEFDINIR Inactive ACEBUTOLOL HCL 200 MG CAPS 1 cap in the morning and 2 caps in the evening ACEBUTOLOL HCL 200 MG CAPS 921111 ACEBUTOLOL HCL Inactive VENTOLIN HFA 108 (90 BASE) MCG/ACT AERS 2 -4 puffs four times a day PRN 2013 VENTOLIN HFA 108 (90 BASE) MCG/ACT AERS ALBUTEROL SULFATE Inactive LEVAQUIN 500 MG ORAL TABS Take 1 tab po daily x 8 days LEVAQUIN 500 MG ORAL TABS 638009 LEVOFLOXACIN Inactive PREDNISONE 20 MG TAB 2 tabs daily for 4 days, 1 tab daily for 4 days, 1/2 tab daily for 4 days PREDNISONE 20 MG TAB 885938 PREDNISONE Inactive LOVASTATIN 40 MG ORAL TABS Take 1 tab po every hs LOVASTATIN 40 MG ORAL TABS 802266 LOVASTATIN Inactive DILAUDID 2 MG ORAL TABS Take 1/2 tab po every 4 hours as needed for pain 2014 DILAUDID 2 MG ORAL TABS 250329 HYDROMORPHONE HCL Inactive AMITRIPTYLINE HCL 25 MG ORAL TABS 1 q hs prn AMITRIPTYLINE HCL 25 MG ORAL TABS 982704 AMITRIPTYLINE HCL Inactive MECLIZINE HCL 25 MG TAB 1 tablet three times daily for 3 days, then 1/2 tab three times daily for 3 days. MECLIZINE HCL 25 MG TAB 971115 MECLIZINE HCL Inactive AMLODIPINE BESYLATE 5 MG ORAL TABS Take 1 tab po daily AMLODIPINE BESYLATE 5 MG ORAL TABS 402341 AMLODIPINE BESYLATE Inactive TOPIRAMATE 25 MG TABS 1 tab po BID TOPIRAMATE 25 MG TABS 949299 TOPIRAMATE Inactive AZITHROMYCIN 250 MG TABS 2 po qd x 1 day, then 1 po qd x 4 days AZITHROMYCIN 250 MG TABS 0634946 AZITHROMYCIN Inactive AZITHROMYCIN 250 MG TABS 2 po qd x 1 day, then 1 po qd x 4 days AZITHROMYCIN 250 MG TABS 6794901 AZITHROMYCIN Inactive PREDNISONE 20 MG TAB 2 po qd x 5 days PREDNISONE 20 MG TAB 874796 PREDNISONE Inactive Vital Signs Date Name Value [...] Panel - Chemistry sodium, serum 138 mmol/L 337-502 6157/09/24 potassium, serum 3.5 mmol/L 3.5-5.2 chloride, serum [...] 142-424 Encounters Code Encounter Date Provider Facility CPT-49027 Level 3 Est. Patient 12:37:21 CDT Harinder Cr [facility] CPT-73536 Level 3 Est. Patient 18:37:17 CDT Harinder Cr [facility] CPT-81051 Level 4 Est. Patient 11:15:54 CDT Nettie Newberry [facility][note 3] CPT-72604 Level 3 Est. Patient 16:42:24 CDT Harinder Cr [facility] CPT-54646 Level 3 Est. Patient 15:03:36 CDT Harinder Cr [facility] CPT-05617 Level 3 Est. Patient 15:03:20 CDT Harinder Cr [facility] CPT-52242 Level 3 Est. Patient 12:14:34 CDT Harinder Hernandez [facility] CPT-85514 Level 3 Est. Patient 13:47:15 CDT Harinder Hernandez [facility] CPT-11702 Level 3 Est. Patient 14:08:24 CDT Harinder Hernandez [facility] CPT-35411 Level 3 Est. Patient 10:07:15 CDT Harinder Cr [facility] CPT-63239 Level 3 Est. Patient 10:06:59 CDT Harinder Cr [facility] CPT-97188 Level 3 Est. Patient 15:53:29 CDT Jae Morgan MD [facility] CPT-48159 Level 3 Est. Patient 17:19:04 CDT Harinder Hernandez [facility] CPT-40091 Level 3 Est. Patient 11:13:01 CDT Harinder Hernandez [facility] CPT-49155 Level 3 Est. Patient 09:03:58 CDT Harinder Cr [facility] CPT-41752 Level 3 Est. Patient 14:46:45 [employer]IC TEACHER Harinder Hernandez [facility] CPT-59643 Level 3 Est. Patient 09:35:49 MUSIC TEACHER Harinder Cr [facility] CPT-26964 Level 3 Est. Patient 09:29:37 MUSIC TEACHER Harinder Hernandez [facility] CPT-29983 Level 3 Est. Patient 15:51:07 CDT Harinder Cr [facility] CPT-78409 Level 3 Est. Patient 18:13:13 CDT Harinder Hernandez [facility] CPT-67225 Level 3 Est. Patient 10:44:19 CDT Harinder Cr [facility] CPT-68762 Level 4 Est. Patient 10:07:19 MUSIC TEACHER Harinder Hernandez [facility] CPT-91898 Level 3 Est. Patient 15:59:32 MUSIC TEACHER Harinder Cr [facility] Procedures Code Procedure Name Date Entry Date Standard Description CPT-JTINJ Asp/Joint Injection 18:38:04 CDT CPT-21811 Immunization Each Additional Inj 17:38:04 CDT CPT-48339 Immunization Single Admin 17:38:04 CDT CPT-21068 Prevnar 13 17:38:04 CDT CPT-14844 Fluzone Quadrivalent preservative free (>=3yrs.) 17:38: 04 CDT CPT-47100 No Charge Offi Visit 11:14:03 CDT CPT-45506 Chest 2V Frontal and Lat 14:00:18 CDT CPT-OV Office Visit 16:10:28 CDT CPT-JTINJ Asp/Joint Injection 09:03:57 CDT CPT-Cryo Cryotherapy 09:35:49 MUSIC TEACHER CPT-JTINJ Asp/Joint Injection 09:34:45 MUSIC TEACHER CPT-J2930 Solu Medrol 125 mg (Methyl Prednisolone Sodium Succinate) 20:37:27 CDT CPT-44796 Abx/Therapy Injection 20:37:27 CDT CPT-21210 Port a cath flush 08:15:51 CDT CPT-62992 Port a cath flush 09:54:16 CDT CPT-92923 Port a cath flush 09:38:02 CDT CPT-63578 Port a cath flush 11:00:27 MUSIC TEACHER
--- OUTSIDE RECORDS SUMMARY | 2017-12-29 01:58 | XMS REPORT | Clinical Summary ---
Author Author Admin, QIE Organization [facility] Address Unknown Phone Unavailable Allergies, Adverse [...] 2 puffs orally twice daily MOMETASONE FUROATE [id number] Active Jeri Sosa RPT,RMA Active NIFEDIPINE ER 30 MG ORAL [id number] 1 daily NIFEDIPINE 10313529878 Active Tawnya Pardo MA Active TOPIRAMATE 25 MG TABS 1 tab po BID TOPIRAMATE 44530113644 No Longer Active Nettie Newberry APRN Active AMLODIPINE BESYLATE 5 MG ORAL TABS Take 1 tab po daily AMLODIPINE BESYLATE 30784792751 No Longer Active Nettie Newberry APRN Active MECLIZINE HCL 25 MG TAB 1 tablet three times daily for 3 days, then 1/2 tab three times daily for 3 days. MECLIZINE HCL 06474621725 No Longer Active Nettie Newberry APRN Active AMITRIPTYLINE HCL 25 MG ORAL TABS 1 q hs prn AMITRIPTYLINE HCL 81519814065 No Longer Active Nettie Newberry APRN Active DILAUDID 2 MG ORAL TABS Take 1/2 tab po every 4 hours as needed for pain 2014 HYDROMORPHONE HCL 17153101956 No Longer Active Nettie Newberry APRN Active CLOPIDOGREL BISULFATE 75 MG ORAL TABS 1 tab by mouth once daily CLOPIDOGREL BISULFATE 07025919384 Active Tawnya Pardo MA Active ATORVASTATIN CALCIUM 10 MG ORAL TABS 1 at bedtime ATORVASTATIN CALCIUM 59143679431 Active Tawnya Pardo MA Active LOVASTATIN 40 MG ORAL TABS Take 1 tab po every hs LOVASTATIN 46309826415 No Longer Active Harinder Hernandez DO Active PREDNISONE 20 MG TAB 2 tabs daily for 4 days, 1 tab daily for 4 days, 1/2 tab daily for 4 days PREDNISONE 90842212714 No Longer Active Harinder Hernandez DO Active LEVAQUIN 500 MG ORAL TABS Take 1 tab po daily x 8 days LEVOFLOXACIN 76219956960 No Longer Active Harinder Hernandez DO Active VENTOLIN HFA 108 (90 BASE) MCG/ACT AERS 2 -4 puffs four times a day PRN 2013 ALBUTEROL SULFATE 30072998693 No Longer Active Jeri Sosa RPT,RMA Active ACEBUTOLOL HCL 200 MG CAPS 1 cap in the morning and 2 caps in the evening ACEBUTOLOL HCL 75859382236 No Longer Active Harinder Hernandez DO Active CEFDINIR 300 MG ORAL CAPS take 1 cap po bid x 10 days CEFDINIR 13383084970 No Longer Active Harinder Hernandez DO Active LOVASTATIN 40 MG TABS 1 pill by mouth nightly for cholesterol LOVASTATIN 10422572331 No Longer Active Nettie Newberry MAHENDRA Active NITROSTAT 0.4 MG SUBL 1 tab under tongueas needed for chest pain ( may take 3 total, 5 min apart, then call 911) NITROGLYCERIN 59136444249 No Longer Active Nettieog Newberry APRN Active POTASSIUM CHLORIDE CR 10 MEQ CPCR 1 capsule by mouth daily 02/14 POTASSIUM CHLORIDE 17950679266 No Longer Active Nettie Newberry MAHENDRA Active TESSALON PERLES 100 MG CAP 1 to 2 tablets by mouth 3 times daily as needed for cough BENZONATATE 89800291161 No Longer Active Nettieog Newberry APRN Active THEOPHYLLINE ER 200 MG ORAL [id number] Take 1 tab every 12 hours THEOPHYLLINE 39159615257 Active Tawnya Pardo MA Active PREDNISONE 20 MG TAB 2 po qd x 5 days PREDNISONE 73064294878 No Longer Active Jae Morgan MD Active AZITHROMYCIN 250 MG TABS 2 po qd x 1 day, then 1 po qd x 4 days AZITHROMYCIN 34242015406 No Longer Active Jae Morgan MD Active PREDNISONE 20 MG TAB 1 tab twice daily for 3 day, then one daily for three days PREDNISONE 29007376209 No Longer Active Jae Morgan MD Active SINGULAIR 10 MG TABS 1 pill by mouth every evening for breathing. 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 NEURONTIN 300 MG CAP 1 cap by mouth three times daily for restless leg 06/22 GABAPENTIN 34360377452 No Longer Active Harinder Hernandez DO Active BENZONATATE 100 MG CAPS 1 cap po TID PRN BENZONATATE 28042827247 No Longer Active Harinder Hernandez DO Active MONTELUKAST SODIUM 10 MG TABS 1 tab po in the evening MONTELUKAST SODIUM 44238081273 No Longer Active Harinder Hernandez DO Active MUPIROCIN 2 % OINT apply to affected area BID x 14 days MUPIROCIN 58567458184 No Longer Active Harinder Hernandez DO Active TYLENOL EXTRA STRENGTH 500 MG TABS as needed ACETAMINOPHEN 52809837716 No Longer Active Harinder Hernandez DO Active PREDNISONE 10 MG TABS 1 tab po daily PREDNISONE 30790770539 No Longer Active Harinder Hernandez DO Active PREDNISONE 20 MG TAB 2 tabs daily for 4 days, 1 tab daily for 4 days, 1/2 tab daily for 4 days PREDNISONE 39566063164 No Longer Active Harinder Hernandez DO Active AZITHROMYCIN 250 MG TABS 2 po qd x 1 day, then 1 po qd x 4 days AZITHROMYCIN 32592536867 No Longer Active Harinder Hernandez DO Active PREDNISONE 20 MG TAB 3 tabs today, then 1 tab twice daily for 3 day, then one daily for three days PREDNISONE 15398271608 No Longer Active Harinder Hernandez DO Active NIFEDIAC CC 30 MG [id number] 1 tablet daily for raynaud's syndrome NIFEDIPINE 35355752406 No Longer Active Tawnya Pardo MA Active AMBIEN 10 MG TAB 1/2 tab by mouth at bedtime as needed for sleep ZOLPIDEM TARTRATE 22612512227 Active Harinder Hernandez DO Active CLONAZEPAM 1 MG TABS 1 tablet at bedtime for insomnia and restless legs 09/14 CLONAZEPAM 62546955990 Active Tawnya Pardo MA Active CLONAZEPAM 0.5 MG TABS 1 tab po daily CLONAZEPAM 07559201707 No Longer Active Harinder Hernandez DO Active PREDNISONE 10 MG TAB 1 tablet daily for COPD PREDNISONE 83624137732 Active Tawnya Pardo MA Active PROAIR HFA 108 (90 BASE) MCG/ACT AERS 2 puffs four times a day as needed 2012 ALBUTEROL SULFATE 23547314238 Active Tawnya Pardo MA Active FLOVENT HFA 110 MCG/ACT AERO 2 puffs inhaled b.i.d. FLUTICASONE PROPIONATE HFA 86806756660 Active Tawnya Pardo MA Active EPIPEN 0.3 MG/0.3ML URIEL DIRECTED EPINEPHRINE Active Jeri Sosa RPT,RMA Active ACIPHEX 20 MG TBEC 1 tab po daily RABEPRAZOLE SODIUM 28968756260 Active Tawnya Pardo MA Active CLONAZEPAM 0.5 MG TABS 1 tab po daily CLONAZEPAM 0.5 MG TABS 560099 CLONAZEPAM Inactive PREDNISONE 20 MG TAB 3 tabs today, then 1 tab twice daily for 3 day, then one daily for three days PREDNISONE 20 MG TAB 516896 PREDNISONE Inactive PREDNISONE 20 MG TAB 2 tabs daily for 4 days, 1 tab daily for 4 days, 1/2 tab daily for 4 days PREDNISONE 20 MG TAB 913878 PREDNISONE Inactive PREDNISONE 10 MG TABS 1 tab po daily PREDNISONE 10 MG TABS 940113 PREDNISONE Inactive TYLENOL EXTRA STRENGTH 500 MG TABS as needed TYLENOL EXTRA STRENGTH 500 MG TABS 682863 ACETAMINOPHEN Inactive MUPIROCIN 2 % OINT apply to affected area BID x 14 days MUPIROCIN 2 % OINT 070077 MUPIROCIN Inactive MONTELUKAST SODIUM 10 MG TABS 1 tab po in the evening MONTELUKAST SODIUM 10 MG TABS 20010818 MONTELUKAST SODIUM Inactive BENZONATATE 100 MG CAPS 1 cap po TID PRN BENZONATATE 100 MG CAPS 424058 BENZONATATE Inactive NEURONTIN 300 MG CAP 1 cap by mouth three times daily for restless leg 06/22 NEURONTIN 300 MG CAP 164192 GABAPENTIN Inactive LEVAQUIN 500 MG TAB 1 tablet by mouth daily LEVAQUIN 500 MG TAB 749384 LEVOFLOXACIN Inactive PREDNISONE 20 MG TAB 1 TID x 2 days, then 1 BID x 3 days, then 1 Daily x 3 days, then stop PREDNISONE 20 MG TAB 508725 PREDNISONE Inactive POTASSIUM CHLORIDE ER 10 MEQ CR-TABS take 1 tab po daily POTASSIUM CHLORIDE ER 10 MEQ CR-TABS POTASSIUM CHLORIDE Inactive PREDNISONE 20 MG TAB 1 tab twice daily for 3 day, then one daily for three days PREDNISONE 20 MG TAB 072784 PREDNISONE Inactive TESSALON PERLES 100 MG CAP 1 to 2 tablets by mouth 3 times daily as needed for cough TESSALON PERLES 100 MG CAP 706785 BENZONATATE Inactive POTASSIUM CHLORIDE CR 10 MEQ [...] nightly for cholesterol LOVASTATIN 40 MG TABS 272002 LOVASTATIN Inactive CEFDINIR 300 MG ORAL CAPS take 1 cap po bid x 10 days CEFDINIR 300 MG ORAL CAPS 213841 CEFDINIR Inactive ACEBUTOLOL HCL 200 MG CAPS 1 cap in the morning and 2 caps in the evening ACEBUTOLOL HCL 200 MG CAPS 032079 ACEBUTOLOL HCL Inactive VENTOLIN HFA 108 (90 BASE) MCG/ACT AERS 2 -4 puffs four times a day PRN 2013 VENTOLIN HFA 108 (90 BASE) MCG/ACT AERS ALBUTEROL SULFATE Inactive LEVAQUIN 500 MG ORAL TABS Take 1 tab po daily x 8 days LEVAQUIN 500 MG ORAL TABS 074079 LEVOFLOXACIN Inactive PREDNISONE 20 MG TAB 2 tabs daily for 4 days, 1 tab daily for 4 days, 1/2 tab daily for 4 days PREDNISONE 20 MG TAB 575896 PREDNISONE Inactive LOVASTATIN 40 MG ORAL TABS Take 1 tab po every hs LOVASTATIN 40 MG ORAL TABS 536270 LOVASTATIN Inactive DILAUDID 2 MG ORAL TABS Take 1/2 tab po every 4 hours as needed for pain 2014 DILAUDID 2 MG ORAL TABS 697071 HYDROMORPHONE HCL Inactive AMITRIPTYLINE HCL 25 MG ORAL TABS 1 q hs prn AMITRIPTYLINE HCL 25 MG ORAL TABS 102448 AMITRIPTYLINE HCL Inactive MECLIZINE HCL 25 MG TAB 1 tablet three times daily for 3 days, then 1/2 tab three times daily for 3 days. MECLIZINE HCL 25 MG TAB 476393 MECLIZINE HCL Inactive AMLODIPINE BESYLATE 5 MG ORAL TABS Take 1 tab po daily AMLODIPINE BESYLATE 5 MG ORAL TABS 107818 AMLODIPINE BESYLATE Inactive TOPIRAMATE 25 MG TABS 1 tab po BID TOPIRAMATE 25 MG TABS 682637 TOPIRAMATE Inactive AZITHROMYCIN 250 MG TABS 2 po qd x 1 day, then 1 po qd x 4 days AZITHROMYCIN 250 MG TABS 1789840 AZITHROMYCIN Inactive AZITHROMYCIN 250 MG TABS 2 po qd x 1 day, then 1 po qd x 4 days AZITHROMYCIN 250 MG TABS 4718899 AZITHROMYCIN Inactive PREDNISONE 20 MG TAB 2 po qd x 5 days PREDNISONE 20 MG TAB 516000 PREDNISONE Inactive Vital Signs Date Name Value [...] Panel - Chemistry sodium, serum 138 mmol/L 801-982 5453/09/24 potassium, serum 3.5 mmol/L 3.5-5.2 chloride, serum [...] 142-424 Encounters Code Encounter Date Provider Facility CPT-43802 Level 3 Est. Patient 18:37:17 CDT Harinder Cr [facility] CPT-20988 Level 4 Est. Patient 11:15:54 CDT Nettie Newberry [facility] CPT-21597 Level 3 Est. Patient 16:42:24 CDT Harinder Cr [facility] CPT-27372 Level 3 Est. Patient 15:03:36 CDT Harinder Hernandez [facility] CPT-01559 Level 3 Est. Patient 15:03:20 CDT Harinder Cr [facility] CPT-64361 Level 3 Est. Patient 12:14:34 CDT Harinder Hernandez [facility] CPT-57334 Level 3 Est. Patient 13:47:15 CDT Harinder Hernandez [facility] CPT-34103 Level 3 Est. Patient 14:08:24 CDT Harinder Hernandez [facility] CPT-69261 Level 3 Est. Patient 10:07:15 CDT Harinder Cr [facility] CPT-41805 Level 3 Est. Patient 10:06:59 CDT Harinder Hernandez [facility] CPT-41587 Level 3 Est. Patient 15:53:29 CDT Jae Morgan MD [facility] CPT-04230 Level 3 Est. Patient 17:19:04 CDT Harinder Hernandez [facility] CPT-03348 Level 3 Est. Patient 11:13:01 CDT Harinder Hernandez [facility] CPT-13969 Level 3 Est. Patient 09:03:58 CDT Harinder Hernandez [facility] CPT-99605 Level 3 Est. 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 Patient 09:35:49 ADVERTISING COPYWRITER Harinder Hernandez [facility] CPT-84442 Level 3 Est. Patient 09:29:37 ADVERTISING COPYWRITER Harinder Hernandez [facility] CPT-58573 Level 3 Est. Patient 15:51:07 CDT Harinder Hernandez [facility] CPT-26185 Level 3 Est. Patient 18:13:13 CDT Harinder Cr [facility] CPT-77916 Level 3 Est. Patient 10:44:19 CDT Harinder Cr [facility] CPT-15701 Level 4 Est. Patient 10:07:19 ADVERTISING COPYWRITER Harinder Hernandez [facility] CPT-01471 Level 3 Est. Patient 15:59:32 ADVERTISING COPYWRITER Harinder Cr [facility] Procedures Code Procedure Name Date Entry Date Standard Description CPT-JTINJ Asp/Joint Injection 18:38:04 CDT CPT-59409 Immunization Each Additional Inj 17:38:04 CDT CPT-10586 Immunization Single Admin 17:38:04 CDT CPT-83517 Prevnar 13 17:38:04 CDT CPT-73359 Fluzone Quadrivalent preservative free (>=3yrs.) 17:38: 04 CDT CPT-87252 No Charge Offi Visit 11:14:03 CDT CPT-11210 Chest 2V Frontal and Lat 14:00:18 CDT CPT-OV Office Visit 16:10:28 CDT CPT-JTINJ Asp/Joint Injection 09:03:57 CDT CPT-Cryo Cryotherapy 09:35:49 ADVERTISING COPYWRITER CPT-JTINJ Asp/Joint Injection 09:34:45 ADVERTISING COPYWRITER CPT-J2930 Solu Medrol 125 mg (Methyl Prednisolone Sodium Succinate) 20:37:27 CDT CPT-87587 Abx/Therapy Injection 20:37:27 CDT CPT-11190 Port a cath flush 08:15:51 CDT CPT-01584 Port a cath flush 09:54:16 CDT CPT-37801 Port a cath flush 09:38:02 CDT CPT-90191 Port a cath flush 11:00:27 ADVERTISING COPYWRITER
--- OUTSIDE RECORDS SUMMARY | 2017-12-29 02:00 | XMS REPORT | Clinical Summary ---
Author Author Admin, QIE Organization [facility] [employer] Address Unknown Phone Unavailable Allergies, Adverse Reactions, [...] + D3 TABLET CALCIUM CARBONATE-VITAMIN D TABS 08152707121 Active Meenu Alejo LPN Active SPIRONOLACTONE 25 MG ORAL TABLET 1 tablet by mouth daily SPIRONOLACTONE 08431590199 No Longer Active Jeri Nieto Active PREDNISONE 20 MG ORAL TABLET 2 tablets by mouth today, then 1 tablet by mouth days 2-3 PREDNISONE 13189696878 No Longer Active Jeri Nieto Active NITROSTAT 0.4 MG SUBLINGUAL TABLET SUBLINGUAL 1 tab SL q5min PRN chest pain NITROGLYCERIN 59955729946 Active Meenu Alejo LPN Active THEOPHYLLINE ER 300 MG ORAL TABLET EXTENDED RELEASE 12 HOUR 1 po BID THEOPHYLLINE 22359547504 Active Harinder Hernandez DO Active POTASSIUM CHLORIDE ER 20 MEQ ORAL TABLET EXTENDED RELEASE 1 po q day POTASSIUM CHLORIDE 26341909952 Active Kortney Mccain Active POTASSIUM CHLORIDE 20 MEQ ORAL PACKET 1 tab po q day POTASSIUM CHLORIDE 88959856932 No Longer Active Kortney Mccain Active POTASSIUM CHLORIDE ER 10 MEQ ORAL CAPSULE EXTENDED RELEASE 1 capsule BID 2016 POTASSIUM CHLORIDE 74709112826 No Longer Active Kortney Mccain Active LASIX 20 MG ORAL TABLET 1 tablet by mouth every morning FUROSEMIDE 97899871019 No Longer Active Kortney Mccain Active FLUOXETINE HCL 10 MG ORAL CAPSULE 1 po qd for depression/anxiety FLUOXETINE HCL 93454753322 Active Meenu Alejo LPN Active VOLTAREN 1 % TRANSDERMAL GEL apply q 6-8 hour to left arm as needed for pain DICLOFENAC SODIUM 10563687052 Active Kortney Mccain Active ALBUTEROL SULFATE (2.5 MG/3ML) 0.083% INHALATION NEBULIZATION SOLUTION 1 vial neb q 4hrs for severe asthma. 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 NIFEDIPINE 32546074630 Active Kortney Mccain Active AMLODIPINE BESYLATE 5 MG ORAL TABLET 1 tablet by mouth daily 2016 AMLODIPINE BESYLATE 23247793603 No Longer Active Harinder Hernandez DO Active TOPAMAX 25 MG ORAL TABLET 1 tab po BID TOPIRAMATE 66263715718 Active Kortney Mccain Active FLUTICASONE PROPIONATE 50 MCG/ACT NASAL SUSPENSION 2 sprays per nostril daily PRN Allergies FLUTICASONE PROPIONATE 30671262378 Active Meenu Alejo LPN Active NIFEDIPINE ER 30 MG ORAL TABLET EXTENDED RELEASE 24 HOUR 1 daily NIFEDIPINE 48855241271 No Longer Active Harinder Hernandez DO Active FLOVENT HFA 110 MCG/ACT INHALATION AEROSOL 2 puffs inhaled b.i.d. FLUTICASONE PROPIONATE HFA 11622734017 Active Harinder Hernandez DO Active EPIPEN 2-BRUNA 0.3 MG/0.3ML INJECTION SOLUTION AUTO-INJECTOR 1 INJ NEEDED EPINEPHRINE 89366871985 Active Meenu Alejo LPN Active PREDNISONE 20 MG ORAL TABLET 1 tab twice daily for 3 day, then one daily for three days PREDNISONE 11037511410 No Longer Active Harinder Hernandez DO Active PREDNISONE 20 MG ORAL TABLET 1 tablet twice daily for 2 days, then 1 tablet once daily for 2 days PREDNISONE 92066060338 No Longer Active Harinder Hernandez DO Active ASMANEX 120 METERED DOSES 220 MCG/INH INHALATION AEROSOL POWDER BREATH ACTIVATED 2 puffs orally twice daily MOMETASONE FUROATE 71969356687 Active Jeri Sosa LPN Active TOPIRAMATE 25 MG ORAL TABLET 1 tab po BID TOPIRAMATE 34493323665 No Longer Active Nettie Newberry APRN Active AMLODIPINE BESYLATE 5 MG ORAL TABLET Take 1 tab po daily AMLODIPINE BESYLATE 59524298590 No Longer Active Nettie Newberry APRN Active MECLIZINE HCL 25 MG ORAL TABLET 1 tablet three times daily for 3 days, then 1/ 2 tab three times daily for 3 days. MECLIZINE HCL 32627193624 No Longer Active Nettie Newberry APRN Active AMITRIPTYLINE HCL 25 MG ORAL TABLET 1 q hs prn AMITRIPTYLINE HCL 05785965974 No Longer Active Nettie Newberry APRN Active DILAUDID 2 MG ORAL TABLET Take 1/2 tab po every 4 hours as needed for pain HYDROMORPHONE HCL 84901246982 No Longer Active Nettie Newberry APRN Active CLOPIDOGREL BISULFATE 75 MG ORAL TABLET 1 tab by mouth once daily CLOPIDOGREL BISULFATE 32982380796 Active Meenu Alejo LPN Active ATORVASTATIN CALCIUM 10 MG ORAL TABLET 1 at bedtime ATORVASTATIN CALCIUM 27391506675 Active Kortney Mccain Active LOVASTATIN 40 MG ORAL TABLET Take 1 tab po every hs LOVASTATIN 00754815303 No Longer Active Harinder Hernandez DO Active PREDNISONE 20 MG ORAL TABLET 2 tabs daily for 4 days, 1 tab daily for 4 days, 1/2 tab daily for 4 days PREDNISONE 49614622522 No Longer Active Harinder Hernandez DO Active LEVAQUIN 500 MG ORAL TABLET Take 1 tab po daily x 8 days LEVOFLOXACIN 31557372168 No Longer Active Harinder Hernandez DO Active VENTOLIN HFA 108 (90 Base) MCG/ACT INHALATION AEROSOL SOLUTION 2 -4 puffs four times a day PRN ALBUTEROL SULFATE 61468934234 No Longer Active Jeri Sosa LPN Active ACEBUTOLOL HCL 200 MG ORAL CAPSULE 1 cap in the morning and 2 caps in the evening ACEBUTOLOL HCL 53571290980 No Longer Active Harinder Hernandez DO Active CEFDINIR 300 MG ORAL CAPSULE take 1 cap po bid x 10 days CEFDINIR 44121712981 No Longer Active Harinder Hernnadez DO Active LOVASTATIN 40 MG ORAL TABLET 1 pill by mouth nightly for cholesterol LOVASTATIN 81198741826 No Longer Active Nettie Newberry APRN Active NITROSTAT 0.4 MG SUBLINGUAL TABLET SUBLINGUAL 1 tab under tongueas needed for chest pain ( may take 3 total, 5 min apart, then call 911) NITROGLYCERIN 61786781283 No Longer Active Nettie Newberry APRN Active POTASSIUM CHLORIDE ER 10 MEQ ORAL CAPSULE EXTENDED RELEASE 1 capsule by mouth daily POTASSIUM CHLORIDE 78545206088 No Longer Active Nettie Newberry APRN Active TESSALON PERLES 100 MG ORAL CAPSULE 1 to 2 tablets by mouth 3 times daily as needed for cough BENZONATATE 66108655920 No Longer Active Nettie Newberry APRN Active PREDNISONE 20 MG ORAL TABLET 2 po qd x 5 days PREDNISONE 14728172480 No Longer Active Jae Morgan MD Active AZITHROMYCIN 250 MG ORAL TABLET 2 po qd x 1 day, then 1 po qd x 4 days 12/30 AZITHROMYCIN 45818913722 No Longer Active Jae Morgan MD Active PREDNISONE 20 MG ORAL TABLET 1 tab twice daily for 3 day, then one daily for three days PREDNISONE 78001633945 No Longer Active Jae Morgan MD Active SINGULAIR 10 MG ORAL TABLET 1 pill by mouth every evening for breathing. 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 Active LEVAQUIN 500 MG ORAL TABLET 1 tablet by mouth daily LEVOFLOXACIN 09626666560 No Longer Active Jillina Frazell [employer]FRAME AND [employer]OWER[employer]ANT TECHNICIAN Active NEURONTIN 300 MG ORAL CAPSULE 1 cap by mouth three times daily for restless leg GABAPENTIN 56083860000 No Longer Active Harinder Hernandez DO Active BENZONATATE 100 MG ORAL CAPSULE 1 cap po TID PRN BENZONATATE 04174854098 No Longer Active Harinder Hernandez DO Active MONTELUKAST SODIUM 10 MG ORAL TABLET 1 tab po in the evening 2014 MONTELUKAST SODIUM 51856984476 No Longer Active Harinder Hernandez DO Active MUPIROCIN 2 % EXTERNAL OINTMENT apply to affected area BID x 14 days MUPIROCIN 72092872555 No Longer Active Harinder Hernandez DO Active TYLENOL EXTRA STRENGTH 500 MG ORAL TABLET as needed ACETAMINOPHEN 71973003315 No Longer Active Harinder Hernandez DO Active PREDNISONE 10 MG ORAL TABLET 1 tab po daily PREDNISONE 04046862171 No Longer Active Harinder Hernandez DO Active PREDNISONE 20 MG ORAL TABLET 2 tabs daily for 4 days, 1 tab daily for 4 days, 1/2 tab daily for 4 days PREDNISONE 58453208836 No Longer Active Hairnder Hernandez DO Active AZITHROMYCIN 250 MG ORAL TABLET 2 po qd x 1 day, then 1 po qd x 4 days 04/06 AZITHROMYCIN 03605133801 No Longer Active Harinder Hernandez DO Active PREDNISONE 20 MG ORAL TABLET 3 tabs today, then 1 tab twice daily for 3 day, then one daily for three days PREDNISONE 12525823877 No Longer Active Harinder Hernandez DO Active NIFEDIAC CC 30 MG ORAL TABLET EXTENDED RELEASE 24 HOUR 1 tablet daily for raynaud's syndrome NIFEDIPINE 19132942201 No Longer Active Tawnya Pardo MA Active AMBIEN 10 MG ORAL TABLET 1/2 tab by mouth at bedtime as needed for sleep 2013 ZOLPIDEM TARTRATE 45345134805 Active Meenu Alejo LPN Active CLONAZEPAM 1 MG ORAL TABLET 1 tablet at bedtime for insomnia and restless legs CLONAZEPAM 92677049965 Active Harinder Hernandez DO Active CLONAZEPAM 0.5 MG ORAL TABLET 1 tab po daily CLONAZEPAM 66824026071 No Longer Active Harinder Hernandez DO Active PREDNISONE 10 MG ORAL TABLET 1 tablet daily for COPD PREDNISONE 18312502485 Active Kortney Mccain Active PROAIR HFA 108 (90 Base) MCG/ACT INHALATION AEROSOL SOLUTION 2 puffs four times a day as needed ALBUTEROL SULFATE 36811070487 Active Harinder Hernandez DO Active FLOVENT HFA 110 MCG/ACT INHALATION AEROSOL 2 puffs inhaled b.i.d. FLUTICASONE PROPIONATE HFA 55272496009 Active Kortney Mccain Active ACIPHEX 20 MG ORAL TABLET DELAYED RELEASE 1 tab po daily RABEPRAZOLE SODIUM 05084342244 Active Meenu Alejo LPN Active CLONAZEPAM 0.5 MG ORAL TABLET 1 tab po daily CLONAZEPAM 0.5 MG ORAL TABLET 440411 CLONAZEPAM Inactive PREDNISONE 20 MG ORAL TABLET 3 tabs today, then 1 tab twice daily for 3 day, then one daily for three days PREDNISONE 20 MG ORAL TABLET 083295 PREDNISONE Inactive PREDNISONE 20 MG ORAL TABLET 2 tabs daily for 4 days, 1 tab daily for 4 days, 1/2 tab daily for 4 days PREDNISONE 20 MG ORAL TABLET 462154 PREDNISONE Inactive PREDNISONE 10 MG ORAL TABLET 1 tab po daily PREDNISONE 10 MG ORAL TABLET 238774 PREDNISONE Inactive TYLENOL EXTRA STRENGTH 500 MG ORAL TABLET as needed TYLENOL EXTRA STRENGTH 500 MG ORAL TABLET 547269 ACETAMINOPHEN Inactive MUPIROCIN 2 % EXTERNAL OINTMENT apply to affected area BID x 14 days MUPIROCIN 2 % EXTERNAL OINTMENT 284375 MUPIROCIN Inactive MONTELUKAST SODIUM 10 MG ORAL TABLET 1 tab po in the evening 2014 MONTELUKAST SODIUM 10 MG ORAL TABLET 733713 MONTELUKAST SODIUM Inactive BENZONATATE 100 MG ORAL CAPSULE 1 cap po TID PRN BENZONATATE 100 MG ORAL CAPSULE 734660 BENZONATATE Inactive NEURONTIN 300 MG ORAL CAPSULE 1 cap by mouth three times daily for restless leg NEURONTIN 300 MG ORAL CAPSULE 929480 GABAPENTIN Inactive LEVAQUIN 500 MG ORAL TABLET 1 tablet by mouth daily LEVAQUIN 500 MG ORAL TABLET 341844 LEVOFLOXACIN Inactive PREDNISONE 20 MG ORAL TABLET 1 TID x 2 days, then 1 BID x 3 days, then 1 Daily x 3 days, then stop PREDNISONE 20 MG ORAL TABLET 429206 PREDNISONE Inactive POTASSIUM CHLORIDE ER 10 MEQ ORAL TABLET EXTENDED RELEASE take 1 tab po daily POTASSIUM CHLORIDE ER 10 MEQ ORAL TABLET EXTENDED RELEASE POTASSIUM CHLORIDE Inactive PREDNISONE 20 MG ORAL TABLET 1 tab twice daily for 3 day, then one daily for three days PREDNISONE 20 MG ORAL TABLET 444259 PREDNISONE Inactive TESSALON PERLES 100 MG ORAL CAPSULE 1 to 2 tablets by mouth 3 times daily as needed for cough TESSALON PERLES 100 MG ORAL CAPSULE 675726 BENZONATATE Inactive POTASSIUM CHLORIDE ER 10 MEQ ORAL CAPSULE EXTENDED RELEASE 1 capsule by mouth daily POTASSIUM CHLORIDE ER 10 MEQ ORAL CAPSULE EXTENDED RELEASE POTASSIUM CHLORIDE Inactive NITROSTAT 0.4 MG SUBLINGUAL TABLET SUBLINGUAL 1 tab under tongueas needed for chest pain ( may take 3 total, 5 min apart, then call 911) NITROSTAT 0.4 MG SUBLINGUAL TABLET SUBLINGUAL 123179 NITROGLYCERIN Inactive LOVASTATIN 40 MG ORAL TABLET 1 pill by mouth nightly for cholesterol LOVASTATIN 40 MG ORAL TABLET 514618 LOVASTATIN Inactive CEFDINIR 300 MG ORAL CAPSULE take 1 cap po bid x 10 days CEFDINIR 300 MG ORAL CAPSULE 888005 CEFDINIR Inactive ACEBUTOLOL HCL 200 MG ORAL CAPSULE 1 cap in the morning and 2 caps in the evening ACEBUTOLOL HCL 200 MG ORAL CAPSULE 080007 ACEBUTOLOL HCL Inactive VENTOLIN HFA 108 (90 Base) MCG/ACT INHALATION AEROSOL SOLUTION 2 -4 puffs four times a day PRN VENTOLIN HFA 108 (90 Base) MCG/ ACT INHALATION AEROSOL SOLUTION ALBUTEROL SULFATE Inactive LEVAQUIN 500 MG ORAL TABLET Take 1 tab po daily x 8 days LEVAQUIN 500 MG ORAL TABLET 544174 LEVOFLOXACIN Inactive PREDNISONE 20 MG ORAL TABLET 2 tabs daily for 4 days, 1 tab daily for 4 days, 1/2 tab daily for 4 days PREDNISONE 20 MG ORAL TABLET 641407 PREDNISONE Inactive LOVASTATIN 40 MG ORAL TABLET Take 1 tab po every hs LOVASTATIN 40 MG ORAL TABLET 924613 LOVASTATIN Inactive DILAUDID 2 MG ORAL TABLET Take 1/2 tab po every 4 hours as needed for pain DILAUDID 2 MG ORAL TABLET 024334 HYDROMORPHONE HCL Inactive AMITRIPTYLINE HCL 25 MG ORAL TABLET 1 q hs prn AMITRIPTYLINE HCL 25 MG ORAL TABLET 142466 AMITRIPTYLINE HCL Inactive MECLIZINE HCL 25 MG ORAL TABLET 1 tablet three times daily for 3 days, then 1/ 2 tab three times daily for 3 days. MECLIZINE HCL 25 MG ORAL TABLET 156343 MECLIZINE HCL Inactive AMLODIPINE BESYLATE 5 MG ORAL TABLET Take 1 tab po daily AMLODIPINE BESYLATE 5 MG ORAL TABLET 711008 AMLODIPINE BESYLATE Inactive TOPIRAMATE 25 MG ORAL TABLET 1 tab po BID TOPIRAMATE 25 MG ORAL TABLET 991213 TOPIRAMATE Inactive PREDNISONE 20 MG ORAL TABLET 1 tablet twice daily for 2 days, then 1 tablet once daily for 2 days PREDNISONE 20 MG ORAL TABLET 533597 PREDNISONE Inactive PREDNISONE 20 MG ORAL TABLET 1 tab twice daily for 3 day, then one daily for three days PREDNISONE 20 MG ORAL TABLET 167439 PREDNISONE Inactive NIFEDIPINE ER 30 MG ORAL TABLET EXTENDED RELEASE 24 HOUR 1 daily NIFEDIPINE ER 30 MG ORAL TABLET EXTENDED RELEASE 24 HOUR NIFEDIPINE Inactive AMLODIPINE BESYLATE 5 MG ORAL TABLET 1 tablet by mouth daily 2016 AMLODIPINE BESYLATE 5 MG ORAL TABLET 859916 AMLODIPINE BESYLATE Inactive LASIX 20 MG ORAL TABLET 1 tablet by mouth every morning LASIX 20 MG ORAL TABLET 810836 FUROSEMIDE Inactive POTASSIUM CHLORIDE ER 10 MEQ ORAL CAPSULE EXTENDED RELEASE 1 capsule BID 2016 POTASSIUM CHLORIDE ER 10 MEQ ORAL CAPSULE EXTENDED RELEASE POTASSIUM CHLORIDE Inactive POTASSIUM CHLORIDE 20 MEQ ORAL PACKET 1 tab po q day POTASSIUM CHLORIDE 20 MEQ ORAL PACKET 9847177 POTASSIUM CHLORIDE Inactive PREDNISONE 20 MG ORAL TABLET 2 tablets by mouth today, then 1 tablet by mouth days 2-3 PREDNISONE 20 MG ORAL TABLET 607425 PREDNISONE Inactive SPIRONOLACTONE 25 MG ORAL TABLET 1 tablet by mouth daily SPIRONOLACTONE 25 MG ORAL TABLET 734477 SPIRONOLACTONE Inactive AZITHROMYCIN 250 MG ORAL TABLET 2 po qd x 1 day, then 1 po qd x 4 days 04/06 AZITHROMYCIN 250 MG ORAL TABLET 562684 AZITHROMYCIN Inactive AZITHROMYCIN 250 MG ORAL TABLET 2 po qd x 1 day, then 1 po qd x 4 days 12/30 AZITHROMYCIN 250 MG ORAL TABLET 844876 AZITHROMYCIN Inactive PREDNISONE 20 MG ORAL TABLET 2 po qd x 5 days PREDNISONE 20 MG ORAL TABLET 654476 PREDNISONE Inactive Vital Signs Date Name Value [...] temperature weight E&M 138 [lb_av] Weight Measured Diagnostic Results Date Name Value Unit Range Description Lab Report: Basic Metabolic Panel - Chemistry sodium, serum 140 mmol/L 567-601 2006/07/13 potassium, serum 3.2 mmol/L 3.5-5.2 chloride, serum 103 mmol/L 98-107 carbon dioxide, venous blood 26.9 mmol/L 21.0-32.0 blood glucose 93 mg/dL 65-110 calcium, serum 9.2 mg/dL 8.5-10.1 urea nitrogen, blood 13 mg/dL 7-18 creatinine, serum 0.84 mg/dL 0.60-1.30 sodium, serum 140 mmol/L 809-256 6822/08/21 potassium, serum 3.8 mmol/L 3.5-5.2 chloride, serum [...] ... - Chemistry sodium, serum 141 mmol/L 941-217 9719/08/07 carbon dioxide, venous blood 34.0 mmol/L 21.0-32.0 [...] 1.40 mg/dL 0.00-1.00 cholesterol, serum 192 mg/dL 104-818 4748/10/19 triglyceride, serum, fasting 71 mg/dL 30-200 HDL cholesterol, serum 72 mg/dL 32-60 LDL cholesterol, serum 106 mg/dL 0-130 Lab Report: Rapid Strep - Lab Microbial identification kit, rapid strep method Negative Negative Lab Report: THEOPHYLLINE - Toxicology theophylline level, serum 3.1 ug/mL 10.0-20.0 Encounters Code Encounter Date Provider Facility CPT-46244 Level 4 Est. Patient 10:17:51 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 Harinder Hernandez [facility] CPT-14570 Level 3 Est. Patient 12:36:15 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 Harinder Hernandez [facility] CPT-46236 Level 3 Est. Patient 15:14:45 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 Harinder Hernandez [facility] CPT-37554 Level 4 Est. Patient 14:45:25 CDT Harinder Cr [facility] CPT-59957 Level 4 Est. Patient 09:15:13 CDT Harinder Hernandez [facility] CPT-72893 Level 3 Est. Patient 11:51:58 CDT Harinder Hernandez [facility] CPT-04597 Level 3 Est. Patient 11:30:05 CDT Harinder Hernandez [facility] CPT-31684 Level 4 Est. Patient 10:19:23 CDT Harinder Hernandez [facility] CPT-85178 Level 3 Est. Patient 09:58:58 CDT Harinder Cr [facility] CPT-88696 Level 3 Est. Patient 12:37:21 CDT Harinder Cr [facility] CPT-49903 Level 3 Est. Patient 18:37:17 CDT Harinder Cr [facility] CPT-40153 Level 4 Est. Patient 11:15:54 CDT Nettie Newberry APRN [facility] CPT-85319 Level 3 Est. Patient 16:42:24 CDT Harinder Hernandez [facility] CPT-18219 Level 3 Est. Patient 15:03:36 CDT Harinder Hernandez [facility] CPT-65942 Level 3 Est. Patient 15:03:20 CDT Harinder Hernandez [facility] CPT-98045 Level 3 Est. Patient 12:14:34 CDT Harinder Hernandez [facility] CPT-69945 Level 3 Est. Patient 13:47:15 CDT Harinder Hernandez [facility] CPT-92246 Level 3 Est. Patient 14:08:24 CDT Harinder Hernandez [facility] CPT-72076 Level 3 Est. Patient 10:07:15 CDT Harinder Hernandez [facility] CPT-76016 Level 3 Est. Patient 10:06:59 CDT Harinder Hernandez [facility] CPT-30961 Level 3 Est. Patient 15:53:29 CDT Jae Morgan MD [facility] CPT-59309 Level 3 Est. Patient 17:19:04 CDT Harinder Hernandez [facility] CPT-20714 Level 3 Est. Patient 11:13:01 CDT Harinder Hernandez [facility] CPT-56958 Level 3 Est. Patient 09:03:58 CDT Harinder Shaye Hernandez [facility] CPT-79754 Level 3 Est. Patient 14:46:45 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 Harinder Cr [facility] CPT-69275 Level 3 Est. Patient 09:35:49 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 Harinder Hernandez [facility] CPT-99651 Level 3 Est. Patient 09:29:37 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 Harinder Hernandez [facility] CPT-96819 Level 3 Est. Patient 15:51:07 CDT Harinder Hernandez [facility] CPT-96767 Level 3 Est. Patient 18:13:13 CDT Harinder Hernandez [facility] CPT-97288 Level 3 Est. Patient 10:44:19 CDT Harinder Hernandez [facility] CPT-88985 Level 4 Est. Patient 10:07:19 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 Harinder Hernandez [facility] CPT-78024 Level 3 Est. Patient 15:59:32 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 Harinder Hernandez [facility] Procedures Code Procedure Name Date Entry Date Standard Description CPT-48056 Bone Density - XRAY USE ONLY 14:43:42 CDT CPT-G0009 Administration of Pneumococcal Vaccine 10:33:25 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 CPT-03446 Pneumovax 23 Injection Injectable 25 MCG/0.5ML 10:33:25 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 CPT-00339 First Vx - Ix admin for Medicare patients 10:33:25 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 CPT-36857 Fluzone Quadrivalent Intramuscular Suspension 0.5 ML 10: 33:25 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 CPT-Cryo Cryotherapy 10:17:51 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 CPT-G0438 Initial Annual Wellness Exam 10:08:59 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 CPT-59594 Abd compl w upright - XRAY USE ONLY 14:48:09 CDT 02/18 CPT-95688 Port a cath flush 13:46:05 CDT CPT-92940 Hip, complete, 2-3 views - XRAY USE ONLY 10:28:40 CDT CPT-12521 BMP - LAB USE ONLY 16:45:09 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 CPT-91712 Port a cath flush 12:00:13 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 CPT-TCMM Transitional Care Mgmt-Moderate 11:20:16 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 CPT-63319 First Vx - Ix admin for Medicare patients 17:35:15 CDT CPT-32333 Fluzone Preservative Free Intramuscular Suspension 17:35 :15 CDT CPT-70347 Microalbumin - LAB USE ONLY 11:52:05 CDT CPT-TCMM Transitional Care Mgmt-Moderate 11:33:57 CDT CPT-64220 No Charge Offi Visit 14:11:29 CDT CPT-10316 Magnesium - LAB USE ONLY 10:45:44 CDT CPT-10856 Lipid - LAB USE ONLY 10:45:44 CDT CPT-80102 CBC - LAB USE ONLY 10:45:44 CDT CPT-82587 Venipuncture Draw Fee 10:45:43 CDT CPT-03373 Venipuncture Draw Fee 18:21:27 CDT CPT-JTINJ Asp/Joint Injection 18:38:04 CDT CPT-47055 Immunization Each Additional Inj 17:38:04 CDT CPT-23522 Immunization Single Admin 17:38:04 CDT CPT-36197 Prevnar 13 17:38:04 CDT CPT-32288 Fluzone Quadrivalent preservative free (>=3yrs.) 17:38: 04 CDT CPT-63248 No Charge Offi Visit 11:14:03 CDT CPT-50756 Chest 2V Frontal and Lat 14:00:18 CDT CPT-OV Office Visit 16:10:28 CDT CPT-JTINJ Asp/Joint Injection 09:03:57 CDT CPT-Cryo Cryotherapy 09:35:49 [employer]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 CPT-JTINJ Asp/Joint Injection 09:34:45 [employer]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 CPT-J2930 Solu Medrol 125 mg (Methyl Prednisolone Sodium Succinate) 20:37:27 CDT CPT-74174 Abx/Therapy Injection 20:37:27 CDT CPT-17807 Port a cath flush 08:15:51 CDT CPT-10120 Port a cath flush 09:54:16 CDT CPT-38510 Port a cath flush 09:38:02 CDT CPT-69900 Port a cath flush 11:00:27 [employer]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
--- OUTSIDE RECORDS SUMMARY | 2017-12-29 02:01 | XMS REPORT | Clinical Summary ---
Author Author Admin, QIE Organization [facility] [employer] Address Unknown Phone Unavailable Allergies, Adverse [...] Morgan MD Benign positional vertigo ICD-386.11 Inactive Hrainder Hernandez DO Colon cancer screening ICD-V76.51 Inactive Harinder Cr David DO Screening for malignant neoplasm, colon ICD-V76.51 Inactive Harinder W David DO Pneumonia ICD-486 Inactive Harinder Hernandez DO Bacteremia ICD-790.7 Inactive Harinder Cr David DO 10/02 Clostridium difficile colitis ICD-008.45 Inactive Harinder rC David DO Abdominal pain, right lower quadrant [...] then one daily for three days PREDNISONE 44497917180 No Longer Active Harinder Hernandez DO Active PREDNISONE 20 MG TAB 1 tablet twice daily for 2 days, then 1 tablet once daily for 2 days PREDNISONE 14984969355 No Longer Active Harinder Hernandez DO Active ASMANEX 120 METERED DOSES 220 MCG/INH INH AEPB 2 puffs orally twice daily MOMETASONE FUROATE 78801941560 Active Jeri Sosa RPT,RMA Active NIFEDIPINE ER 30 MG ORAL [id number] 1 daily NIFEDIPINE 59782518660 Active Tawnya Pardo MA Active TOPIRAMATE 25 MG TABS 1 tab po BID TOPIRAMATE 84607480421 No Longer Active Nettie Newberry APRN Active AMLODIPINE BESYLATE 5 MG ORAL TABS Take 1 tab po daily AMLODIPINE BESYLATE 97023982522 No Longer Active Nettie Newberry APRN Active MECLIZINE HCL 25 MG TAB 1 tablet three times daily for 3 days, then 1/2 tab three times daily for 3 days. MECLIZINE HCL 60120006904 No Longer Active Nettie Newberry APRN Active AMITRIPTYLINE HCL 25 MG ORAL TABS 1 q hs prn AMITRIPTYLINE HCL 19991543860 No Longer Active Nettie Newberry APRN Active DILAUDID 2 MG ORAL TABS Take 1/2 tab po every 4 hours as needed for pain 2014 HYDROMORPHONE HCL 70595307512 No Longer Active Nettie Newberry APRN Active CLOPIDOGREL BISULFATE 75 MG ORAL TABS 1 tab by mouth once daily CLOPIDOGREL BISULFATE 29362672294 Active Tawnya Pardo MA Active ATORVASTATIN CALCIUM 10 MG ORAL TABS 1 at bedtime ATORVASTATIN CALCIUM 22241463999 Active Tawnya Pardo MA Active LOVASTATIN 40 MG ORAL TABS Take 1 tab po every hs LOVASTATIN 39445942758 No Longer Active Harinder Hernandez DO Active PREDNISONE 20 MG TAB 2 tabs daily for 4 days, 1 tab daily for 4 days, 1/2 tab daily for 4 days PREDNISONE 29889987370 No Longer Active Harinder Hernandez DO Active LEVAQUIN 500 MG ORAL TABS Take 1 tab po daily x 8 days LEVOFLOXACIN 60697316963 No Longer Active Harinder Hernandez DO Active VENTOLIN HFA 108 (90 BASE) MCG/ACT AERS 2 -4 puffs four times a day PRN 2013 ALBUTEROL SULFATE 91163125830 No Longer Active Jeri Sosa RPT,RMA Active ACEBUTOLOL HCL 200 MG CAPS 1 cap in the morning and 2 caps in the evening ACEBUTOLOL HCL 60423583436 No Longer Active Harinder Hernandez DO Active CEFDINIR 300 MG ORAL CAPS take 1 cap po bid x 10 days CEFDINIR 28783333865 No Longer Active Harinder Hernandez DO Active LOVASTATIN 40 MG TABS 1 pill by mouth nightly for cholesterol LOVASTATIN 14380602699 No Longer Active Nettie Newberry APRN Active NITROSTAT 0.4 MG SUBL 1 tab under tongueas needed for chest pain ( may take 3 total, 5 min apart, then call 911) NITROGLYCERIN 15262456557 No Longer Active Nettie Newberry APRN Active POTASSIUM CHLORIDE CR 10 MEQ CPCR 1 capsule by mouth daily 02/14 POTASSIUM CHLORIDE 93939561224 No Longer Active Nettie Newberry APRN Active TESSALON PERLES 100 MG CAP 1 to 2 tablets by mouth 3 times daily as needed for cough BENZONATATE 08484085271 No Longer Active Nettie Newberry APRN Active THEOPHYLLINE ER 200 MG ORAL [id number] Take 1 tab every 12 hours THEOPHYLLINE 67826363059 Active Tawnya Pardo MA Active PREDNISONE 20 MG TAB 2 po qd x 5 days PREDNISONE 08558734026 No Longer Active Jae Morgan MD Active AZITHROMYCIN 250 MG TABS 2 po qd x 1 day, then 1 po qd x 4 days AZITHROMYCIN 44364756175 No Longer Active Jae Morgan MD Active PREDNISONE 20 MG TAB 1 tab twice daily for 3 day, then one daily for three days PREDNISONE 68561403679 No Longer Active Jae Morgan MD Active SINGULAIR 10 MG TABS 1 pill by mouth every evening for breathing. MONTELUKAST SODIUM 65462124975 Active Tawnya Pardo MA Active TYLENOL 325 MG TAB 3 by mouth q4h as needed ACETAMINOPHEN 06184748130 Active Harinder Hernandez DO Active POTASSIUM CHLORIDE ER 10 MEQ CR-TABS take 1 tab po daily POTASSIUM CHLORIDE 73207641782 No Longer Active Harinder Hernandez DO Active PREDNISONE 20 MG TAB 1 TID x 2 days, then 1 BID x 3 days, then 1 Daily x 3 days, then stop PREDNISONE 39321462943 No Longer Active Jillina Frazell CLINIC ADMINISTRATOR Active LEVAQUIN 500 MG TAB 1 tablet by mouth daily LEVOFLOXACIN 53295751961 No Longer Active Jillina Frazell CLINIC ADMINISTRATOR Active NEURONTIN 300 MG CAP 1 cap by mouth three times daily for restless leg 06/22 GABAPENTIN 86786940786 No Longer Active Harinder Hernandez DO Active BENZONATATE 100 MG CAPS 1 cap po TID PRN BENZONATATE 51286575376 No Longer Active Harinder Hernandez DO Active MONTELUKAST SODIUM 10 MG TABS 1 tab po in the evening MONTELUKAST SODIUM 88716657390 No Longer Active Harinder Hernandez DO Active MUPIROCIN 2 % OINT apply to affected area BID x 14 days MUPIROCIN 00582472920 No Longer Active Harinder Hernandez DO Active TYLENOL EXTRA STRENGTH 500 MG TABS as needed ACETAMINOPHEN 52434297201 No Longer Active Harinder Hernandez DO Active PREDNISONE 10 MG TABS 1 tab po daily PREDNISONE 77845882335 No Longer Active Harinder Hernandez DO Active PREDNISONE 20 MG TAB 2 tabs daily for 4 days, 1 tab daily for 4 days, 1/2 tab daily for 4 days PREDNISONE 31655887638 No Longer Active Harinder Hernandez DO Active AZITHROMYCIN 250 MG TABS 2 po qd x 1 day, then 1 po qd x 4 days AZITHROMYCIN 81913042472 No Longer Active Harinder Hernandez DO Active PREDNISONE 20 MG TAB 3 tabs today, then 1 tab twice daily for 3 day, then one daily for three days PREDNISONE 96748776030 No Longer Active Harinder Hernandez DO Active NIFEDIAC CC 30 MG [id number] 1 tablet daily for raynaud's syndrome NIFEDIPINE 35691926731 No Longer Active Tawnya Pardo MA Active AMBIEN 10 MG TAB 1/2 tab by mouth at bedtime as needed for sleep ZOLPIDEM TARTRATE 53066625903 Active Harinder Hernandez DO Active CLONAZEPAM 1 MG TABS 1 tablet at bedtime for insomnia and restless legs 09/14 CLONAZEPAM 89746006648 Active Kaylah Newberry Active CLONAZEPAM 0.5 MG TABS 1 tab po daily CLONAZEPAM 63702621709 No Longer Active Harinder Hernandez DO Active PREDNISONE 10 MG TAB 1 tablet daily for COPD PREDNISONE 19983381777 Active Tawnya Pardo MA Active PROAIR HFA 108 (90 BASE) MCG/ACT AERS 2 puffs four times a day as needed 2012 ALBUTEROL SULFATE 06478024438 Active Tawnya Pardo MA Active FLOVENT HFA 110 MCG/ACT AERO 2 puffs inhaled b.i.d. FLUTICASONE PROPIONATE HFA 76502823136 Active Tawnya Pardo MA Active EPIPEN 0.3 MG/0.3ML URIEL DIRECTED EPINEPHRINE Active Jeri Sosa RPT,RMA Active ACIPHEX 20 MG TBEC 1 tab po daily RABEPRAZOLE SODIUM 03270827685 Active Tawnya Pardo MA Active CLONAZEPAM 0.5 MG TABS 1 tab po daily CLONAZEPAM 0.5 MG TABS 361430 CLONAZEPAM Inactive PREDNISONE 20 MG TAB 3 tabs today, then 1 tab twice daily for 3 day, then one daily for three days PREDNISONE 20 MG TAB 779036 PREDNISONE Inactive PREDNISONE 20 MG TAB 2 tabs daily for 4 days, 1 tab daily for 4 days, 1/2 tab daily for 4 days PREDNISONE 20 MG TAB 776154 PREDNISONE Inactive PREDNISONE 10 MG TABS 1 tab po daily PREDNISONE 10 MG TABS 309910 PREDNISONE Inactive TYLENOL EXTRA STRENGTH 500 MG TABS as needed TYLENOL EXTRA STRENGTH 500 MG TABS 853513 ACETAMINOPHEN Inactive MUPIROCIN 2 % OINT apply to affected area BID x 14 days MUPIROCIN 2 % OINT 112207 MUPIROCIN Inactive MONTELUKAST SODIUM 10 MG TABS 1 tab po in the evening MONTELUKAST SODIUM 10 MG TABS 160631 MONTELUKAST SODIUM Inactive BENZONATATE 100 MG CAPS 1 cap po TID PRN BENZONATATE 100 MG CAPS 257838 BENZONATATE Inactive NEURONTIN 300 MG CAP 1 cap by mouth three times daily for restless leg 06/22 NEURONTIN 300 MG CAP 328360 GABAPENTIN Inactive LEVAQUIN 500 MG TAB 1 tablet by mouth daily LEVAQUIN 500 MG TAB 282122 LEVOFLOXACIN Inactive PREDNISONE 20 MG TAB 1 TID x 2 days, then 1 BID x 3 days, then 1 Daily x 3 days, then stop PREDNISONE 20 MG TAB 532613 PREDNISONE Inactive POTASSIUM CHLORIDE ER 10 MEQ CR-TABS take 1 tab po daily POTASSIUM CHLORIDE ER 10 MEQ CR-TABS POTASSIUM CHLORIDE Inactive PREDNISONE 20 MG TAB 1 tab twice daily for 3 day, then one daily for three days PREDNISONE 20 MG TAB 766484 PREDNISONE Inactive TESSALON PERLES 100 MG CAP 1 to 2 tablets by mouth 3 times daily as needed for cough TESSALON PERLES 100 MG CAP 269627 BENZONATATE Inactive POTASSIUM CHLORIDE CR 10 MEQ [...] nightly for cholesterol LOVASTATIN 40 MG TABS 967793 LOVASTATIN Inactive CEFDINIR 300 MG ORAL CAPS take 1 cap po bid x 10 days CEFDINIR 300 MG ORAL CAPS 699753 CEFDINIR Inactive ACEBUTOLOL HCL 200 MG CAPS 1 cap in the morning and 2 caps in the evening ACEBUTOLOL HCL 200 MG CAPS 545161 ACEBUTOLOL HCL Inactive VENTOLIN HFA 108 (90 BASE) MCG/ACT AERS 2 -4 puffs four times a day PRN 2013 VENTOLIN HFA 108 (90 BASE) MCG/ACT AERS ALBUTEROL SULFATE Inactive LEVAQUIN 500 MG ORAL TABS Take 1 tab po daily x 8 days LEVAQUIN 500 MG ORAL TABS 618494 LEVOFLOXACIN Inactive PREDNISONE 20 MG TAB 2 tabs daily for 4 days, 1 tab daily for 4 days, 1/2 tab daily for 4 days PREDNISONE 20 MG TAB 816857 PREDNISONE Inactive LOVASTATIN 40 MG ORAL TABS Take 1 tab po every hs LOVASTATIN 40 MG ORAL TABS 278171 LOVASTATIN Inactive DILAUDID 2 MG ORAL TABS Take 1/2 tab po every 4 hours as needed for pain 2014 DILAUDID 2 MG ORAL TABS 914003 HYDROMORPHONE HCL Inactive AMITRIPTYLINE HCL 25 MG ORAL TABS 1 q hs prn AMITRIPTYLINE HCL 25 MG ORAL TABS 613825 AMITRIPTYLINE HCL Inactive MECLIZINE HCL 25 MG TAB 1 tablet three times daily for 3 days, then 1/2 tab three times daily for 3 days. MECLIZINE HCL 25 MG TAB 504442 MECLIZINE HCL Inactive AMLODIPINE BESYLATE 5 MG ORAL TABS Take 1 tab po daily AMLODIPINE BESYLATE 5 MG ORAL TABS 677133 AMLODIPINE BESYLATE Inactive TOPIRAMATE 25 MG TABS 1 tab po BID TOPIRAMATE 25 MG TABS 682142 TOPIRAMATE Inactive PREDNISONE 20 MG TAB 1 tablet twice daily for 2 days, then 1 tablet once daily for 2 days PREDNISONE 20 MG TAB 351943 PREDNISONE Inactive PREDNISONE 20 MG TAB 1 tab twice daily for 3 day, then one daily for three days PREDNISONE 20 MG TAB 707467 PREDNISONE Inactive AZITHROMYCIN 250 MG TABS 2 po qd x 1 day, then 1 po qd x 4 days AZITHROMYCIN 250 MG TABS 0172971 AZITHROMYCIN Inactive AZITHROMYCIN 250 MG TABS 2 po qd x 1 day, then 1 po qd x 4 days AZITHROMYCIN 250 MG TABS 1606134 AZITHROMYCIN Inactive PREDNISONE 20 MG TAB 2 po qd x 5 days PREDNISONE 20 MG TAB 260664 PREDNISONE Inactive Vital Signs Date Name Value [...] Panel - Chemistry sodium, serum 138 mmol/L 924-721 0184/09/24 potassium, serum 3.5 mmol/L 3.5-5.2 chloride, serum [...] Magnesium - Chemistry cholesterol, serum 180 mg/dL 816-184 6933/08/08 triglyceride, serum, fasting 92 mg/dL 30-200 HDL cholesterol, serum 66 mg/dL 32-96 LDL cholesterol, serum 96 mg/dL 0-130 sodium, serum 142 mmol/L 575-066 7191/08/08 carbon dioxide, venous blood 27.4 mmol/L 21.0-32.0 [...] 10.0-20.0 Encounters Code Encounter Date Provider Facility CPT-77250 Level 3 Est. Patient 09:58:58 CDT Harinder Shaye [facility] CPT-39684 Level 3 Est. Patient 12:37:21 CDT Harinder Shaye [facility] CPT-08529 Level 3 Est. Patient 18:37:17 CDT Harinder Shaye [facility] CPT-98826 Level 4 Est. Patient 11:15:54 CDT Nettie Newberry [facility] CPT-58753 Level 3 Est. Patient 16:42:24 CDT Harinder Cr [facility] CPT-35263 Level 3 Est. Patient 15:03:36 CDT Harinder Cr [facility] CPT-98563 Level 3 Est. Patient 15:03:20 CDT Harinder Cr [facility] CPT-69850 Level 3 Est. Patient 12:14:34 CDT Harinder Shaye [facility] CPT-46927 Level 3 Est. Patient 13:47:15 CDT Harinder Shaye [facility] CPT-09495 Level 3 Est. Patient 14:08:24 CDT Harinder Cr [facility] CPT-05894 Level 3 Est. Patient 10:07:15 CDT Harinder Shaye [facility] CPT-28634 Level 3 Est. Patient 10:06:59 CDT Harinder Cr [facility] CPT-47889 Level 3 Est. Patient 15:53:29 CDT Jae Morgan MD [facility] CPT-33603 Level 3 Est. Patient 17:19:04 CDT Harinder Hernandez [facility] CPT-75430 Level 3 Est. Patient 11:13:01 CDT Harinder Hernandez [facility] CPT-44439 Level 3 Est. Patient 09:03:58 CDT Harinder Hernandez [facility] CPT-43725 Level 3 Est. Patient 14:46:45 [employer] Harinder Hernandez [facility] CPT-69971 Level 3 Est. Patient 09:35:49 [employer] P[employer] Harinder Shaye [facility] CPT-21307 Level 3 Est. Patient 09:29:37 [employer] P[employer]ER Harinder Hernandez [facility] CPT-01800 Level 3 Est. Patient 15:51:07 CDT Harinder Hernandez [facility] CPT-85563 Level 3 Est. Patient 18:13:13 CDT Harinder Hernandez [facility] CPT-53703 Level 3 Est. Patient 10:44:19 CDT Harinder Hernandez [facility] CPT-81733 Level 4 Est. Patient 10:07:19 [employer]IST[employer] P[employer] Harinder Hernandez [facility] CPT-37473 Level 3 Est. Patient 15:59:32 [employer]ER Harinder Hernandez [facility] Procedures Code Procedure Name Date Entry Date Standard Description CPT-TCMM Transitional Care Mgmt-Moderate 11:33:57 CDT CPT-76248 No Charge Offi Visit 14:11:29 CDT CPT-75545 Magnesium - LAB USE ONLY 10:45:44 CDT CPT-36205 Lipid - LAB USE ONLY 10:45:44 CDT CPT-50880 CBC - LAB USE ONLY 10:45:44 CDT CPT-08058 Venipuncture Draw Fee 10:45:43 CDT CPT-42534 Venipuncture Draw Fee 18:21:27 CDT CPT-JTINJ Asp/Joint Injection 18:38:04 CDT CPT-43896 Immunization Each Additional Inj 17:38:04 CDT CPT-94608 Immunization Single Admin 17:38:04 CDT CPT-86320 Prevnar 13 17:38:04 CDT CPT-18405 Fluzone Quadrivalent preservative free (>=3yrs.) 17:38: 04 CDT CPT-94585 No Charge Offi Visit 11:14:03 CDT CPT-06307 Chest 2V Frontal and Lat 14:00:18 CDT CPT-OV Office Visit 16:10:28 CDT CPT-JTINJ Asp/Joint Injection 09:03:57 CDT CPT-Cryo Cryotherapy 09:35:49 H[employer]ISTIC PUL[employer]ER CPT-JTINJ Asp/Joint Injection 09:34:45 HOLISTIC PUL[employer]ER CPT-J2930 Solu Medrol 125 mg (Methyl Prednisolone Sodium Succinate) 20:37:27 CDT CPT-20226 Abx/Therapy Injection 20:37:27 CDT CPT-81179 Port a cath flush 08:15:51 CDT CPT-92333 Port a cath flush 09:54:16 CDT CPT-89571 Port a cath flush 09:38:02 CDT CPT-63663 Port a cath flush 11:00:27 HOLISTIC PULSER
--- OUTSIDE RECORDS SUMMARY | 2017-12-29 02:02 | XMS REPORT | Clinical Summary ---
Author Author Admin, QIE Organization [facility] Address Unknown Phone Unavailable Allergies, Adverse Reactions, [...] and adjustment of vascular catheter ICD-V58.81 Inactive Harnider Hernandez DO Back pain, lumbar ICD-724.2 Inactive [...] malignant neoplasm, colon ICD-V76.51 Inactive Harinder Hernandez Pneumonia ICD-486 Inactive Harinder Hernandez DO Bacteremia [...] MEQ CPCR 1 capsule BID POTASSIUM CHLORIDE 80355165218 Active Kortney Mccain Active FLUOXETINE HCL 10 MG ORAL CAPS 1 po qd for depression/anxiety FLUOXETINE HCL 92818736156 Active Harinder Hernandez DO Active VOLTAREN 1 % GEL apply q 6-8 hour to left arm as needed for pain DICLOFENAC SODIUM 93004717712 Active Harinder Hernandez DO Active LASIX 20 MG TAB 1 tablet by mouth every morning FUROSEMIDE 51271735637 Prince Mccain Active POTASSIUM CHLORIDE 20 MEQ ORAL PACK 1 tab po BID POTASSIUM CHLORIDE 62018490247 Prince Mccain Active ALBUTEROL SULFATE 0.083 % NEBU SOLN 1 vial neb q 4hrs for severe asthma. 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 FLUTICASONE PROPIONATE HFA 88439778551 Active Harinder Hernandez DO Active EPIPEN 2-BRUNA 0.3 MG/0.3ML INJ SOAJ 1 INJ NEEDED EPINEPHRINE 75494388812 Active Harinder Hernandez DO Active PREDNISONE 20 MG TAB 1 tab twice daily for 3 day, then one daily for three days PREDNISONE 98066492767 No Longer Active Harinder Hernandez DO Active PREDNISONE 20 MG TAB 1 tablet twice daily for 2 days, then 1 tablet once daily for 2 days PREDNISONE 24522936482 No Longer Active Harinder Hernandez DO Active ASMANEX 120 METERED DOSES 220 MCG/INH INH AEPB 2 puffs orally twice daily MOMETASONE FUROATE 37555649480 Active Jeri Sosa RPT,RMA Active TOPIRAMATE 25 MG TABS 1 tab po BID TOPIRAMATE 23630987374 No Longer Active Nettie Newberry APRN Active AMLODIPINE BESYLATE 5 MG ORAL TABS Take 1 tab po daily AMLODIPINE BESYLATE 11626128061 No Longer Active Nettie Newberry APRN Active MECLIZINE HCL 25 MG TAB 1 tablet three times daily for 3 days, then 1/2 tab three times daily for 3 days. MECLIZINE HCL 90703635723 No Longer Active Nettie Newberry APRN Active AMITRIPTYLINE HCL 25 MG ORAL TABS 1 q hs prn AMITRIPTYLINE HCL 73812344777 No Longer Active Nettie Newberry APRN Active DILAUDID 2 MG ORAL TABS Take 1/2 tab po every 4 hours as needed for pain 2014 HYDROMORPHONE HCL 27534008222 No Longer Active Nettie Newberry APRN Active CLOPIDOGREL BISULFATE 75 MG ORAL TABS 1 tab by mouth once daily CLOPIDOGREL BISULFATE 35534269904 Active Harinder Hernandez DO Active ATORVASTATIN CALCIUM 10 MG ORAL TABS 1 at bedtime ATORVASTATIN CALCIUM 07265460623 Active Tawnya Pardo MA Active LOVASTATIN 40 MG ORAL TABS Take 1 tab po every hs LOVASTATIN 81048905765 No Longer Active Harinder Hernandez DO Active PREDNISONE 20 MG TAB 2 tabs daily for 4 days, 1 tab daily for 4 days, 1/2 tab daily for 4 days PREDNISONE 80850007539 No Longer Active Harinder Hernandez DO Active LEVAQUIN 500 MG ORAL TABS Take 1 tab po daily x 8 days LEVOFLOXACIN 20941426313 No Longer Active Harinder Hernandez DO Active VENTOLIN HFA 108 (90 BASE) MCG/ACT AERS 2 -4 puffs four times a day PRN 2013 ALBUTEROL SULFATE 51610255943 No Longer Active Jeri Sosa RPT,RMA Active ACEBUTOLOL HCL 200 MG CAPS 1 cap in the morning and 2 caps in the evening ACEBUTOLOL HCL 51677781182 No Longer Active Harinder Hernandez DO Active CEFDINIR 300 MG ORAL CAPS take 1 cap po bid x 10 days CEFDINIR 25780770068 No Longer Active Harinder Hernandez DO Active LOVASTATIN 40 MG TABS 1 pill by mouth nightly for cholesterol LOVASTATIN 93605255286 No Longer Active Nettie Newberry APRN Active NITROSTAT 0.4 MG SUBL 1 tab under tongueas needed for chest pain ( may take 3 total, 5 min apart, then call 911) NITROGLYCERIN 08661944250 No Longer Active Nettie Newberry APRN Active POTASSIUM CHLORIDE CR 10 MEQ CPCR 1 capsule by mouth daily 02/14 POTASSIUM CHLORIDE 34261873656 No Longer Active Nettie Newberry APRN Active TESSALON PERLES 100 MG CAP 1 to 2 tablets by mouth 3 times daily as needed for cough BENZONATATE 94928756107 No Longer Active Nettie King MAHENDRA Active THEOPHYLLINE ER 200 MG ORAL [id number] Take 1 tab every 12 hours THEOPHYLLINE 63538979670 Active Kortneyalice Mccain Active PREDNISONE 20 MG TAB 2 po qd x 5 days PREDNISONE 02886920638 No Longer Active Jae Morgan MD Active AZITHROMYCIN 250 MG TABS 2 po qd x 1 day, then 1 po qd x 4 days AZITHROMYCIN 33777596949 No Longer Active Jae Morgan MD Active PREDNISONE 20 MG TAB 1 tab twice daily for 3 day, then one daily for three days PREDNISONE 51282692761 No Longer Active Jae Morgan MD Active SINGULAIR 10 MG TABS 1 pill by mouth every evening for breathing. MONTELUKAST SODIUM 28557522476 Active Tawnya Pardo MA Active TYLENOL 325 MG TAB 3 by mouth q4h as needed ACETAMINOPHEN 22445083905 Active Harinder Hernandez DO Active POTASSIUM CHLORIDE ER 10 MEQ CR-TABS take 1 tab po daily POTASSIUM CHLORIDE 25847958676 No Longer Active Harinder Hernandez DO Active PREDNISONE 20 MG TAB 1 TID x 2 days, then 1 BID x 3 days, then 1 Daily x 3 days, then stop PREDNISONE 02219263096 No Longer Active Jillkvng Frashai MCCRAY Active LEVAQUIN 500 MG TAB 1 tablet by mouth daily LEVOFLOXACIN 35891916056 No Longer Active Jillina Frazell MAHENDRA Active NEURONTIN 300 MG CAP 1 cap by mouth three times daily for restless leg 06/22 GABAPENTIN 56252386817 No Longer Active Harinder Hernandez DO Active BENZONATATE 100 MG CAPS 1 cap po TID PRN BENZONATATE 08892811022 No Longer Active Harinder Hernandez DO Active MONTELUKAST SODIUM 10 MG TABS 1 tab po in the evening MONTELUKAST SODIUM 30464614772 No Longer Active Harinder Hernandez DO Active MUPIROCIN 2 % OINT apply to affected area BID x 14 days MUPIROCIN 46689267834 No Longer Active Harinder Hernandez DO Active TYLENOL EXTRA STRENGTH 500 MG TABS as needed ACETAMINOPHEN 53371799220 No Longer Active Harinder Hernandez DO Active PREDNISONE 10 MG TABS 1 tab po daily PREDNISONE 70547488956 No Longer Active Harinder Hernandez DO Active PREDNISONE 20 MG TAB 2 tabs daily for 4 days, 1 tab daily for 4 days, 1/2 tab daily for 4 days PREDNISONE 76451963243 No Longer Active Harinder Hernandez DO Active AZITHROMYCIN 250 MG TABS 2 po qd x 1 day, then 1 po qd x 4 days AZITHROMYCIN 00518819610 No Longer Active Hairnder Hernandez DO Active PREDNISONE 20 MG TAB 3 tabs today, then 1 tab twice daily for 3 day, then one daily for three days PREDNISONE 45287926855 No Longer Active Harinder Hernandez DO Active NIFEDIAC CC 30 MG [id number] 1 tablet daily for raynaud's syndrome NIFEDIPINE 80951251169 No Longer Active Tawnya Pardo MA Active AMBIEN 10 MG TAB 1/2 tab by mouth at bedtime as needed for sleep ZOLPIDEM TARTRATE 49886107326 Active Ciera Pimentel Active CLONAZEPAM 1 MG TABS 1 tablet at bedtime for insomnia and restless legs 09/14 CLONAZEPAM 57224027478 Active Harinder Hernandez DO Active CLONAZEPAM 0.5 MG TABS 1 tab po daily CLONAZEPAM 90643950037 No Longer Active Harinder Hernandez DO Active PREDNISONE 10 MG TAB 1 tablet daily for COPD PREDNISONE 37171038631 Active Ciera Pimentel Active PROAIR HFA 108 (90 BASE) MCG/ACT AERS 2 puffs four times a day as needed 2012 ALBUTEROL SULFATE 53726596735 Active Harinder Hernandez DO Active FLOVENT HFA 110 MCG/ACT AERO 2 puffs inhaled b.i.d. FLUTICASONE PROPIONATE HFA 28975252452 Active Kortney Mccain Active ACIPHEX 20 MG TBEC 1 tab po daily RABEPRAZOLE SODIUM 81526791284 Active Kaylah Newberry Active CLONAZEPAM 0.5 MG TABS 1 tab po daily CLONAZEPAM 0.5 MG TABS 212907 CLONAZEPAM Inactive PREDNISONE 20 MG TAB 3 tabs today, then 1 tab twice daily for 3 day, then one daily for three days PREDNISONE 20 MG TAB 831151 PREDNISONE Inactive PREDNISONE 20 MG TAB 2 tabs daily for 4 days, 1 tab daily for 4 days, 1/2 tab daily for 4 days PREDNISONE 20 MG TAB 547215 PREDNISONE Inactive PREDNISONE 10 MG TABS 1 tab po daily PREDNISONE 10 MG TABS 648230 PREDNISONE Inactive TYLENOL EXTRA STRENGTH 500 MG TABS as needed TYLENOL EXTRA STRENGTH 500 MG TABS 987664 ACETAMINOPHEN Inactive MUPIROCIN 2 % OINT apply to affected area BID x 14 days MUPIROCIN 2 % OINT 341704 MUPIROCIN Inactive MONTELUKAST SODIUM 10 MG TABS 1 tab po in the evening MONTELUKAST SODIUM 10 MG TABS 20010818 MONTELUKAST SODIUM Inactive BENZONATATE 100 MG CAPS 1 cap po TID PRN BENZONATATE 100 MG CAPS 505858 BENZONATATE Inactive NEURONTIN 300 MG CAP 1 cap by mouth three times daily for restless leg 06/22 NEURONTIN 300 MG CAP 475530 GABAPENTIN Inactive LEVAQUIN 500 MG TAB 1 tablet by mouth daily LEVAQUIN 500 MG TAB 705601 LEVOFLOXACIN Inactive PREDNISONE 20 MG TAB 1 TID x 2 days, then 1 BID x 3 days, then 1 Daily x 3 days, then stop PREDNISONE 20 MG TAB 366667 PREDNISONE Inactive POTASSIUM CHLORIDE ER 10 MEQ CR-TABS take 1 tab po daily POTASSIUM CHLORIDE ER 10 MEQ CR-TABS POTASSIUM CHLORIDE Inactive PREDNISONE 20 MG TAB 1 tab twice daily for 3 day, then one daily for three days PREDNISONE 20 MG TAB 589999 PREDNISONE Inactive TESSALON PERLES 100 MG CAP 1 to 2 tablets by mouth 3 times daily as needed for cough TESSALON PERLES 100 MG CAP 787496 BENZONATATE Inactive POTASSIUM CHLORIDE CR 10 MEQ CPCR 1 capsule by mouth daily 02/14 POTASSIUM CHLORIDE CR 10 MEQ CPCR POTASSIUM CHLORIDE Inactive NITROSTAT 0.4 MG SUBL 1 tab under tongueas needed for chest pain ( may take 3 total, 5 min apart, then call 911) NITROSTAT 0.4 MG SUBL 011692 NITROGLYCERIN Inactive LOVASTATIN 40 MG TABS 1 pill by mouth nightly for cholesterol LOVASTATIN 40 MG TABS LOVASTATIN Inactive CEFDINIR 300 MG ORAL CAPS take 1 cap po bid x 10 days CEFDINIR 300 MG ORAL CAPS 022873 CEFDINIR Inactive ACEBUTOLOL HCL 200 MG CAPS 1 cap in the morning and 2 caps in the evening ACEBUTOLOL HCL 200 MG CAPS 775940 ACEBUTOLOL HCL Inactive VENTOLIN HFA 108 (90 BASE) MCG/ACT AERS 2 -4 puffs four times a day PRN 2013 VENTOLIN HFA 108 (90 BASE) MCG/ACT AERS ALBUTEROL SULFATE Inactive LEVAQUIN 500 MG ORAL TABS Take 1 tab po daily x 8 days LEVAQUIN 500 MG ORAL TABS 667967 LEVOFLOXACIN Inactive PREDNISONE 20 MG TAB 2 tabs daily for 4 days, 1 tab daily for 4 days, 1/2 tab daily for 4 days PREDNISONE 20 MG TAB 202132 PREDNISONE Inactive LOVASTATIN 40 MG ORAL TABS Take 1 tab po every hs LOVASTATIN 40 MG ORAL TABS 932203 LOVASTATIN Inactive DILAUDID 2 MG ORAL TABS Take 1/2 tab po every 4 hours as needed for pain 2014 DILAUDID 2 MG ORAL TABS 295791 HYDROMORPHONE HCL Inactive AMITRIPTYLINE HCL 25 MG ORAL TABS 1 q hs prn AMITRIPTYLINE HCL 25 MG ORAL TABS 116339 AMITRIPTYLINE HCL Inactive MECLIZINE HCL 25 MG TAB 1 tablet three times daily for 3 days, then 1/2 tab three times daily for 3 days. MECLIZINE HCL 25 MG TAB 104587 MECLIZINE HCL Inactive AMLODIPINE BESYLATE 5 MG ORAL TABS Take 1 tab po daily AMLODIPINE BESYLATE 5 MG ORAL TABS 242399 AMLODIPINE BESYLATE Inactive TOPIRAMATE 25 MG TABS 1 tab po BID TOPIRAMATE 25 MG TABS 077783 TOPIRAMATE Inactive PREDNISONE 20 MG TAB 1 tablet twice daily for 2 days, then 1 tablet once daily for 2 days PREDNISONE 20 MG TAB 206860 PREDNISONE Inactive PREDNISONE 20 MG TAB 1 tab twice daily for 3 day, then one daily for three days PREDNISONE 20 MG TAB 722645 PREDNISONE Inactive NIFEDIPINE ER 30 MG ORAL [id number] 1 daily NIFEDIPINE ER 30 MG ORAL [id number] NIFEDIPINE Inactive AMLODIPINE BESYLATE 5 MG TABS 1 tablet by mouth daily AMLODIPINE BESYLATE 5 MG TABS 805684 AMLODIPINE BESYLATE Inactive AZITHROMYCIN 250 MG TABS 2 po qd x 1 day, then 1 po qd x 4 days AZITHROMYCIN 250 MG TABS 9567674 AZITHROMYCIN Inactive AZITHROMYCIN 250 MG TABS 2 po qd x 1 day, then 1 po qd x 4 days AZITHROMYCIN 250 MG TABS 3650186 AZITHROMYCIN Inactive PREDNISONE 20 MG TAB 2 po qd x 5 days PREDNISONE 20 MG TAB 365278 PREDNISONE Inactive Vital Signs Date Name Value [...] Panel - Chemistry sodium, serum 137 mmol/L 033-485 0924/01/03 potassium, serum 3.4 mmol/L 3.5-5.2 chloride, serum 102 mmol/L 98-107 carbon dioxide, venous blood 29.2 mmol/L 21.0-32.0 blood glucose 87 mg/dL 65-110 calcium, serum 8.5 mg/dL 8.5-10.1 urea nitrogen, blood 8 mg/dL 7-18 creatinine, serum 0.82 mg/dL 0.55-1.30 sodium, serum 140 mmol/L 110-991 4090/07/13 potassium, serum 3.2 mmol/L 3.5-5.2 chloride, serum [...] Magnesium - Chemistry cholesterol, serum 180 mg/dL 355-868 8513/08/08 triglyceride, serum, fasting 92 mg/dL 30-200 HDL cholesterol, serum 66 mg/dL 32-96 LDL cholesterol, serum 96 mg/dL 0-130 sodium, serum 142 mmol/L 287-845 8832/08/08 carbon dioxide, venous blood 27.4 mmol/L 21.0-32.0 [...] 10.0-20.0 Encounters Code Encounter Date Provider Facility CPT-84333 Level 4 Est. Patient 09:15:13 CDT Harinder Cr [facility] CPT-30752 Level 3 Est. Patient 11:51:58 CDT Harinder Cr [facility] CPT-38185 Level 3 Est. Patient 11:30:05 CDT Harinder Hernandez [facility] CPT-69757 Level 4 Est. Patient 10:19:23 CDT Harinder Hernandez [facility] CPT-60880 Level 3 Est. Patient 09:58:58 CDT Harinder Cr [facility] CPT-77129 Level 3 Est. Patient 12:37:21 CDT Harinder Hernandez [facility] CPT-10756 Level 3 Est. Patient 18:37:17 CDT Harinder Cr [facility] CPT-43797 Level 4 Est. Patient 11:15:54 CDT Nettie Newberry APRN [facility] CPT-21069 Level 3 Est. Patient 16:42:24 CDT Harinder Cr [facility] CPT-37651 Level 3 Est. Patient 15:03:36 CDT Harinder Hernandez [facility] CPT-23314 Level 3 Est. Patient 15:03:20 CDT Harinder Cr [facility] CPT-40793 Level 3 Est. Patient 12:14:34 CDT Harinder Hernandez [facility] CPT-71052 Level 3 Est. Patient 13:47:15 CDT Harinder Hernandez [facility] CPT-82144 Level 3 Est. Patient 14:08:24 CDT Harinder Hernandez [facility] CPT-89256 Level 3 Est. Patient 10:07:15 CDT Harinder Cr [facility] CPT-18148 Level 3 Est. Patient 10:06:59 CDT Harinder Shaye [facility] CPT-95164 Level 3 Est. Patient 15:53:29 CDT Jae Morgan MD [facility] CPT-41074 Level 3 Est. Patient 17:19:04 CDT Harinder Cr [facility] CPT-40268 Level 3 Est. Patient 11:13:01 CDT Harinder Hernandez [facility] CPT-17703 Level 3 Est. Patient 09:03:58 CDT Harinder Hernandez [facility] CPT-73192 Level 3 Est. Patient 14:46:45 TEXTILE DESIGNER Harinder Cr [facility] CPT-04884 Level 3 Est. Patient 09:35:49 TEXTILE DESIGNER Harinder Hernandez [facility] CPT-84075 Level 3 Est. Patient 09:29:37 TEXTILE DESIGNER Harinder Cr [facility] CPT-10251 Level 3 Est. Patient 15:51:07 CDT Harinder Hernandez [facility] CPT-26004 Level 3 Est. Patient 18:13:13 CDT Harinder Cr [facility] CPT-08824 Level 3 Est. Patient 10:44:19 CDT Harinder Cr [facility] CPT-69221 Level 4 Est. Patient 10:07:19 TEXTILE DESIGNER Harinder Cr [facility] CPT-09011 Level 3 Est. Patient 15:59:32 TEXTILE DESIGNER Harinder Cr [facility] Procedures Code Procedure Name Date Entry Date Standard Description CPT-94395 Port a cath flush 13:46:05 CDT CPT-94951 Hip, complete, 2-3 views - XRAY USE ONLY 10:28:40 CDT CPT-55132 BMP - LAB USE ONLY 16:45:09 TEXTILE DESIGNER CPT-53965 Port a cath flush 12:00:13 TEXTILE DESIGNER CPT-TCMM Transitional Care Mgmt-Moderate 11:20:16 TEXTILE DESIGNER CPT-30283 First Vx - Ix admin for Medicare patients 17:35:15 CDT CPT-03713 Fluzone Preservative Free Intramuscular Suspension 17:35 :15 CDT CPT-59191 Microalbumin - LAB USE ONLY 11:52:05 CDT CPT-TCMM Transitional Care Mgmt-Moderate 11:33:57 CDT CPT-87754 No Charge Offi Visit 14:11:29 CDT CPT-61121 Magnesium - LAB USE ONLY 10:45:44 CDT CPT-21070 Lipid - LAB USE ONLY 10:45:44 CDT CPT-19045 CBC - LAB USE ONLY 10:45:44 CDT CPT-60366 Venipuncture Draw Fee 10:45:43 CDT CPT-78651 Venipuncture Draw Fee 18:21:27 CDT CPT-JTINJ Asp/Joint Injection 18:38:04 CDT CPT-94383 Immunization Each Additional Inj 17:38:04 CDT CPT-99206 Immunization Single Admin 17:38:04 CDT CPT-36185 Prevnar 13 17:38:04 CDT CPT-36435 Fluzone Quadrivalent preservative free (>=3yrs.) 17:38: 04 CDT CPT-47862 No Charge Offi Visit 11:14:03 CDT CPT-77202 Chest 2V Frontal and Lat 14:00:18 CDT CPT-OV Office Visit 16:10:28 CDT CPT-JTINJ Asp/Joint Injection 09:03:57 CDT CPT-Cryo Cryotherapy 09:35:49 TEXTILE DESIGNER CPT-JTINJ Asp/Joint Injection 09:34:45 TEXTILE DESIGNER CPT-J2930 Solu Medrol 125 mg (Methyl Prednisolone Sodium Succinate) 20:37:27 CDT CPT-83224 Abx/Therapy Injection 20:37:27 CDT CPT-92857 Port a cath flush 08:15:51 CDT CPT-45368 Port a cath flush 09:54:16 CDT CPT-98878 Port a cath flush 09:38:02 CDT CPT-10323 Port a cath flush 11:00:27 TEXTILE DESIGNER
--- OUTSIDE RECORDS SUMMARY | 2017-12-29 02:03 | XMS REPORT | Clinical Summary ---
Author Author Admin, QIE Organization [facility] Address Unknown Phone Unavailable Allergies, Adverse Reactions, [...] vaccination for influenza V04.81 Resolved Harinder Cr Davdi DO Need for prophylactic vaccination and inoculation [...] cerebrovascular disease Diarrhea, chronic 787.91 Active Harinder Hrenandez DO Diarrhea Reflux, esophageal 530.81 Active Harinder [...] RELEASE 12 HOUR 1 po BID THEOPHYLLINE 55539186932 Active oKrtney Mccain Active POTASSIUM CHLORIDE ER 20 MEQ ORAL TABLET EXTENDED RELEASE 1 po q day POTASSIUM CHLORIDE 48945460570 Active Kortney Mccain Active POTASSIUM CHLORIDE 20 MEQ ORAL PACKET 1 tab po q day POTASSIUM CHLORIDE 35585252218 No Longer Active Kortney Mccain Active POTASSIUM CHLORIDE ER 10 MEQ ORAL CAPSULE EXTENDED RELEASE 1 capsule BID 2016 POTASSIUM CHLORIDE 85010767767 No Longer Active Kortney Mccain Active LASIX 20 MG ORAL TABLET 1 tablet by mouth every morning FUROSEMIDE 57904596506 No Longer Active Kortney Mccain Active SPIRONOLACTONE 25 MG ORAL TABLET 1 tablet by mouth daily SPIRONOLACTONE 50287854192 Active Kortney Mccain Active FLUOXETINE HCL 10 MG ORAL CAPSULE 1 po qd for depression/anxiety FLUOXETINE HCL 39810850210 Active Harinder Hernandez DO Active VOLTAREN 1 % TRANSDERMAL GEL apply q 6-8 hour to left arm as needed for pain DICLOFENAC SODIUM 98468073893 Active Kortney Mccain Active ALBUTEROL SULFATE (2.5 MG/3ML) 0.083% INHALATION NEBULIZATION SOLUTION 1 vial neb q 4hrs for severe asthma. 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 NIFEDIPINE 05257185212 Active Kortney Mccain Active AMLODIPINE BESYLATE 5 MG ORAL TABLET 1 tablet by mouth daily 2016 AMLODIPINE BESYLATE 26021801052 No Longer Active Harinder Hernandez DO Active TOPAMAX 25 MG ORAL TABLET 1 tab po BID TOPIRAMATE 92140039678 Active Kortney Mccain Active FLUTICASONE PROPIONATE 50 MCG/ACT NASAL SUSPENSION 2 sprays per nostril daily PRN Allergies FLUTICASONE PROPIONATE 32287393352 Active Kortney Mccain Active NIFEDIPINE ER 30 MG ORAL TABLET EXTENDED RELEASE 24 HOUR 1 daily NIFEDIPINE 11005297730 No Longer Active Harinder Hernandez DO Active FLOVENT HFA 110 MCG/ACT INHALATION AEROSOL 2 puffs inhaled b.i.d. FLUTICASONE PROPIONATE HFA 00243554778 Active Harinder Hernandez DO Active EPIPEN 2-BRUNA 0.3 MG/0.3ML INJECTION SOLUTION AUTO-INJECTOR 1 INJ NEEDED EPINEPHRINE 23491706477 Active Kortney Mccain Active PREDNISONE 20 MG ORAL TABLET 1 tab twice daily for 3 day, then one daily for three days PREDNISONE 61061415009 No Longer Active Harinder Hernandez DO Active PREDNISONE 20 MG ORAL TABLET 1 tablet twice daily for 2 days, then 1 tablet once daily for 2 days PREDNISONE 51481327822 No Longer Active Harinder Hernandez DO Active ASMANEX 120 METERED DOSES 220 MCG/INH INHALATION AEROSOL POWDER BREATH ACTIVATED 2 puffs orally twice daily MOMETASONE FUROATE 62641878007 Active Jeri Sosa LPN Active TOPIRAMATE 25 MG ORAL TABLET 1 tab po BID TOPIRAMATE 11864515568 No Longer Active Nettie Newberry MAHENDRA Active AMLODIPINE BESYLATE 5 MG ORAL TABLET Take 1 tab po daily AMLODIPINE BESYLATE 23423023141 No Longer Active Nettie Newberry MAHEDNRA Active MECLIZINE HCL 25 MG ORAL TABLET 1 tablet three times daily for 3 days, then 1/ 2 tab three times daily for 3 days. MECLIZINE HCL 19271180999 No Longer Active Nettie Newberry MAHENDRA Active AMITRIPTYLINE HCL 25 MG ORAL TABLET 1 q hs prn AMITRIPTYLINE HCL 81218695082 No Longer Active Nettie Newberry MAHENDRA Active DILAUDID 2 MG ORAL TABLET Take 1/2 tab po every 4 hours as needed for pain HYDROMORPHONE HCL 88327669477 No Longer Active Nettie Rohith MAHENDRA Active CLOPIDOGREL BISULFATE 75 MG ORAL TABLET 1 tab by mouth once daily CLOPIDOGREL BISULFATE 55404057800 Active Harinder Hernandez DO Active ATORVASTATIN CALCIUM 10 MG ORAL TABLET 1 at bedtime ATORVASTATIN CALCIUM 50004381516 Active Kortney Mccain Active LOVASTATIN 40 MG ORAL TABLET Take 1 tab po every hs LOVASTATIN 63715186026 No Longer Active Harinder Hernandez DO Active PREDNISONE 20 MG ORAL TABLET 2 tabs daily for 4 days, 1 tab daily for 4 days, 1/2 tab daily for 4 days PREDNISONE 71802510834 No Longer Active Harinder Hernandez DO Active LEVAQUIN 500 MG ORAL TABLET Take 1 tab po daily x 8 days LEVOFLOXACIN 24635656717 No Longer Active Harinder Hernandez DO Active VENTOLIN HFA 108 (90 Base) MCG/ACT INHALATION AEROSOL SOLUTION 2 -4 puffs four times a day PRN ALBUTEROL SULFATE 55414332856 No Longer Active Jeri Sosa LPN Active ACEBUTOLOL HCL 200 MG ORAL CAPSULE 1 cap in the morning and 2 caps in the evening ACEBUTOLOL HCL 44938683906 No Longer Active Harinder Hernandez DO Active CEFDINIR 300 MG ORAL CAPSULE take 1 cap po bid x 10 days CEFDINIR 74709944516 No Longer Active Harinder Hernandez DO Active LOVASTATIN 40 MG ORAL TABLET 1 pill by mouth nightly for cholesterol LOVASTATIN 93399499434 No Longer Active Nettie Newberry APRN Active NITROSTAT 0.4 MG SUBLINGUAL TABLET SUBLINGUAL 1 tab under tongueas needed for chest pain ( may take 3 total, 5 min apart, then call 911) NITROGLYCERIN 87305678089 No Longer Active Nettie Nweberry APRN Active POTASSIUM CHLORIDE ER 10 MEQ ORAL CAPSULE EXTENDED RELEASE 1 capsule by mouth daily POTASSIUM CHLORIDE 57980838737 No Longer Active Nettie Newberry APRN Active TESSALON PERLES 100 MG ORAL CAPSULE 1 to 2 tablets by mouth 3 times daily as needed for cough BENZONATATE 17956828006 No Longer Active Nettie Newberry APRN Active PREDNISONE 20 MG ORAL TABLET 2 po qd x 5 days PREDNISONE 95732392598 No Longer Active Jae Morgan MD Active AZITHROMYCIN 250 MG ORAL TABLET 2 po qd x 1 day, then 1 po qd x 4 days 12/30 AZITHROMYCIN 91405446593 No Longer Active Jae Morgan MD Active PREDNISONE 20 MG ORAL TABLET 1 tab twice daily for 3 day, then one daily for three days PREDNISONE 83312566877 No Longer Active Jae Morgan MD Active SINGULAIR 10 MG ORAL TABLET 1 pill by mouth every evening for breathing. 2014 MONTELUKAST SODIUM 77574173445 Active Kortney Mccain Active TYLENOL 325 MG ORAL TABLET 3 by mouth q4h as needed ACETAMINOPHEN 90651342770 Active Harinder Hernandez DO Active POTASSIUM CHLORIDE ER 10 MEQ ORAL TABLET EXTENDED RELEASE take 1 tab po daily POTASSIUM CHLORIDE 73014020866 No Longer Active Harinder Hernandez DO Active PREDNISONE 20 MG ORAL TABLET 1 TID x 2 days, then 1 BID x 3 days, then 1 Daily x 3 days, then stop PREDNISONE 07414072526 No Longer Active Jillkvng Frashai BRICEÑON Active LEVAQUIN 500 MG ORAL TABLET 1 tablet by mouth daily LEVOFLOXACIN 50334122666 No Longer Active Jillina Frazell [employer] RESOURCES DIRECTOR Active NEURONTIN 300 MG ORAL CAPSULE 1 cap by mouth three times daily for restless leg GABAPENTIN 41010554565 No Longer Active Harinder Hernandez DO Active BENZONATATE 100 MG ORAL CAPSULE 1 cap po TID PRN BENZONATATE 90004420430 No Longer Active Harinder Hernandez DO Active MONTELUKAST SODIUM 10 MG ORAL TABLET 1 tab po in the evening 2014 MONTELUKAST SODIUM 50379291430 No Longer Active Harinder Hernandez DO Active MUPIROCIN 2 % EXTERNAL OINTMENT apply to affected area BID x 14 days MUPIROCIN 81889593074 No Longer Active Harinder Hernandez DO Active TYLENOL EXTRA STRENGTH 500 MG ORAL TABLET as needed ACETAMINOPHEN 32280172926 No Longer Active Harinder Hernandez DO Active PREDNISONE 10 MG ORAL TABLET 1 tab po daily PREDNISONE 68659637953 No Longer Active Harinder Hernandez DO Active PREDNISONE 20 MG ORAL TABLET 2 tabs daily for 4 days, 1 tab daily for 4 days, 1/2 tab daily for 4 days PREDNISONE 56480961960 No Longer Active Harinder Hernandez DO Active AZITHROMYCIN 250 MG ORAL TABLET 2 po qd x 1 day, then 1 po qd x 4 days 04/06 AZITHROMYCIN 72543323936 No Longer Active Harinder Hernandez DO Active PREDNISONE 20 MG ORAL TABLET 3 tabs today, then 1 tab twice daily for 3 day, then one daily for three days PREDNISONE 90942544479 No Longer Active Harinder Hernandez DO Active NIFEDIAC CC 30 MG ORAL TABLET EXTENDED RELEASE 24 HOUR 1 tablet daily for raynaud's syndrome NIFEDIPINE 29148129357 No Longer Active Tawnya Pardo MA Active AMBIEN 10 MG ORAL TABLET 1/2 tab by mouth at bedtime as needed for sleep 2013 ZOLPIDEM TARTRATE 50300172595 Active Kortney Mccain Active CLONAZEPAM 1 MG ORAL TABLET 1 tablet at bedtime for insomnia and restless legs CLONAZEPAM 87007931711 Active Harinder Hernandez DO Active CLONAZEPAM 0.5 MG ORAL TABLET 1 tab po daily CLONAZEPAM 30064154442 No Longer Active Harinder Hernandez DO Active PREDNISONE 10 MG ORAL TABLET 1 tablet daily for COPD PREDNISONE 64985530932 Active Kortney Mccain Active PROAIR HFA 108 (90 Base) MCG/ACT INHALATION AEROSOL SOLUTION 2 puffs four times a day as needed ALBUTEROL SULFATE 89323910086 Active Harinder Hernandez DO Active FLOVENT HFA 110 MCG/ACT INHALATION AEROSOL 2 puffs inhaled b.i.d. FLUTICASONE PROPIONATE HFA 93877815250 Active Kortney Mccain Active ACIPHEX 20 MG ORAL TABLET DELAYED RELEASE 1 tab po daily RABEPRAZOLE SODIUM 39692376634 Active Kaylah Newberry Active CLONAZEPAM 0.5 MG ORAL TABLET 1 tab po daily CLONAZEPAM 0.5 MG ORAL TABLET 478820 CLONAZEPAM Inactive PREDNISONE 20 MG ORAL TABLET 3 tabs today, then 1 tab twice daily for 3 day, then one daily for three days PREDNISONE 20 MG ORAL TABLET 661377 PREDNISONE Inactive PREDNISONE 20 MG ORAL TABLET 2 tabs daily for 4 days, 1 tab daily for 4 days, 1/2 tab daily for 4 days PREDNISONE 20 MG ORAL TABLET 149008 PREDNISONE Inactive PREDNISONE 10 MG ORAL TABLET 1 tab po daily PREDNISONE 10 MG ORAL TABLET 840274 PREDNISONE Inactive TYLENOL EXTRA STRENGTH 500 MG ORAL TABLET as needed TYLENOL EXTRA STRENGTH 500 MG ORAL TABLET 328405 ACETAMINOPHEN Inactive MUPIROCIN 2 % EXTERNAL OINTMENT apply to affected area BID x 14 days MUPIROCIN 2 % EXTERNAL OINTMENT 109412 MUPIROCIN Inactive MONTELUKAST SODIUM 10 MG ORAL TABLET 1 tab po in the evening 2014 MONTELUKAST SODIUM 10 MG ORAL TABLET 20010818 MONTELUKAST SODIUM Inactive BENZONATATE 100 MG ORAL CAPSULE 1 cap po TID PRN BENZONATATE 100 MG ORAL CAPSULE 800801 BENZONATATE Inactive NEURONTIN 300 MG ORAL CAPSULE 1 cap by mouth three times daily for restless leg NEURONTIN 300 MG ORAL CAPSULE 200928 GABAPENTIN Inactive LEVAQUIN 500 MG ORAL TABLET 1 tablet by mouth daily LEVAQUIN 500 MG ORAL TABLET 145859 LEVOFLOXACIN Inactive PREDNISONE 20 MG ORAL TABLET 1 TID x 2 days, then 1 BID x 3 days, then 1 Daily x 3 days, then stop PREDNISONE 20 MG ORAL TABLET 262878 PREDNISONE Inactive POTASSIUM CHLORIDE ER 10 MEQ ORAL TABLET EXTENDED RELEASE take 1 tab po daily POTASSIUM CHLORIDE ER 10 MEQ ORAL TABLET EXTENDED RELEASE POTASSIUM CHLORIDE Inactive PREDNISONE 20 MG ORAL TABLET 1 tab twice daily for 3 day, then one daily for three days PREDNISONE 20 MG ORAL TABLET 319511 PREDNISONE Inactive TESSALON PERLES 100 MG ORAL CAPSULE 1 to 2 tablets by mouth 3 times daily as needed for cough TESSALON PERLES 100 MG ORAL CAPSULE 626122 BENZONATATE Inactive POTASSIUM CHLORIDE ER 10 MEQ ORAL CAPSULE EXTENDED RELEASE 1 capsule by mouth daily POTASSIUM CHLORIDE ER 10 MEQ ORAL CAPSULE EXTENDED RELEASE POTASSIUM CHLORIDE Inactive NITROSTAT 0.4 MG SUBLINGUAL TABLET SUBLINGUAL 1 tab under tongueas needed for chest pain ( may take 3 total, 5 min apart, then call 911) NITROSTAT 0.4 MG SUBLINGUAL TABLET SUBLINGUAL 125519 NITROGLYCERIN Inactive LOVASTATIN 40 MG ORAL TABLET 1 pill by mouth nightly for cholesterol LOVASTATIN 40 MG ORAL TABLET 693357 LOVASTATIN Inactive CEFDINIR 300 MG ORAL CAPSULE take 1 cap po bid x 10 days CEFDINIR 300 MG ORAL CAPSULE 957450 CEFDINIR Inactive ACEBUTOLOL HCL 200 MG ORAL CAPSULE 1 cap in the morning and 2 caps in the evening ACEBUTOLOL HCL 200 MG ORAL CAPSULE 093543 ACEBUTOLOL HCL Inactive VENTOLIN HFA 108 (90 Base) MCG/ACT INHALATION AEROSOL SOLUTION 2 -4 puffs four times a day PRN VENTOLIN HFA 108 (90 Base) MCG/ ACT INHALATION AEROSOL SOLUTION ALBUTEROL SULFATE Inactive LEVAQUIN 500 MG ORAL TABLET Take 1 tab po daily x 8 days LEVAQUIN 500 MG ORAL TABLET 381671 LEVOFLOXACIN Inactive PREDNISONE 20 MG ORAL TABLET 2 tabs daily for 4 days, 1 tab daily for 4 days, 1/2 tab daily for 4 days PREDNISONE 20 MG ORAL TABLET 305194 PREDNISONE Inactive LOVASTATIN 40 MG ORAL TABLET Take 1 tab po every hs LOVASTATIN 40 MG ORAL TABLET 066527 LOVASTATIN Inactive DILAUDID 2 MG ORAL TABLET Take 1/2 tab po every 4 hours as needed for pain DILAUDID 2 MG ORAL TABLET 669381 HYDROMORPHONE HCL Inactive AMITRIPTYLINE HCL 25 MG ORAL TABLET 1 q hs prn AMITRIPTYLINE HCL 25 MG ORAL TABLET 630701 AMITRIPTYLINE HCL Inactive MECLIZINE HCL 25 MG ORAL TABLET 1 tablet three times daily for 3 days, then 1/ 2 tab three times daily for 3 days. MECLIZINE HCL 25 MG ORAL TABLET 490182 MECLIZINE HCL Inactive AMLODIPINE BESYLATE 5 MG ORAL TABLET Take 1 tab po daily AMLODIPINE BESYLATE 5 MG ORAL TABLET 137885 AMLODIPINE BESYLATE Inactive TOPIRAMATE 25 MG ORAL TABLET 1 tab po BID TOPIRAMATE 25 MG ORAL TABLET 032197 TOPIRAMATE Inactive PREDNISONE 20 MG ORAL TABLET 1 tablet twice daily for 2 days, then 1 tablet once daily for 2 days PREDNISONE 20 MG ORAL TABLET 223105 PREDNISONE Inactive PREDNISONE 20 MG ORAL TABLET 1 tab twice daily for 3 day, then one daily for three days PREDNISONE 20 MG ORAL TABLET 641598 PREDNISONE Inactive NIFEDIPINE ER 30 MG ORAL TABLET EXTENDED RELEASE 24 HOUR 1 daily NIFEDIPINE ER 30 MG ORAL TABLET EXTENDED RELEASE 24 HOUR NIFEDIPINE Inactive AMLODIPINE BESYLATE 5 MG ORAL TABLET 1 tablet by mouth daily 2016 AMLODIPINE BESYLATE 5 MG ORAL TABLET 362054 AMLODIPINE BESYLATE Inactive LASIX 20 MG ORAL TABLET 1 tablet by mouth every morning LASIX 20 MG ORAL TABLET 731772 FUROSEMIDE Inactive POTASSIUM CHLORIDE ER 10 MEQ ORAL CAPSULE EXTENDED RELEASE 1 capsule BID 2016 POTASSIUM CHLORIDE ER 10 MEQ ORAL CAPSULE EXTENDED RELEASE POTASSIUM CHLORIDE Inactive POTASSIUM CHLORIDE 20 MEQ ORAL PACKET 1 tab po q day POTASSIUM CHLORIDE 20 MEQ ORAL PACKET 7826809 POTASSIUM CHLORIDE Inactive AZITHROMYCIN 250 MG ORAL TABLET 2 po qd x 1 day, then 1 po qd x 4 days 04/06 AZITHROMYCIN 250 MG ORAL TABLET 885957 AZITHROMYCIN Inactive AZITHROMYCIN 250 MG ORAL TABLET 2 po qd x 1 day, then 1 po qd x 4 days 12/30 AZITHROMYCIN 250 MG ORAL TABLET 691949 AZITHROMYCIN Inactive PREDNISONE 20 MG ORAL TABLET 2 po qd x 5 days PREDNISONE 20 MG ORAL TABLET 731739 PREDNISONE Inactive Vital Signs Date Name Value [...] Panel - Chemistry sodium, serum 137 mmol/L 801-688 0706/01/03 potassium, serum 3.4 mmol/L 3.5-5.2 chloride, serum 102 mmol/L 98-107 carbon dioxide, venous blood 29.2 mmol/L 21.0-32.0 blood glucose 87 mg/dL 65-110 calcium, serum 8.5 mg/dL 8.5-10.1 urea nitrogen, blood 8 mg/dL 7-18 creatinine, serum 0.82 mg/dL 0.55-1.30 sodium, serum 140 mmol/L 694-592 5939/07/13 potassium, serum 3.2 mmol/L 3.5-5.2 chloride, serum 103 mmol/L 98-107 carbon dioxide, venous blood 26.9 mmol/L 21.0-32.0 blood glucose 93 mg/dL 65-110 calcium, serum 9.2 mg/dL 8.5-10.1 urea nitrogen, blood 13 mg/dL 7-18 creatinine, serum 0.84 mg/dL 0.60-1.30 sodium, serum 140 mmol/L 557-250 0678/08/21 potassium, serum 3.8 mmol/L 3.5-5.2 chloride, serum 105 mmol/L 98-107 carbon dioxide, venous blood 26.9 mmol/L 21.0-32.0 blood glucose 85 mg/dL 65-110 calcium, serum 8.8 mg/dL 8.5-10.1 urea nitrogen, blood 11 mg/dL - creatinine, serum 0.95 mg/dL 0.60-1.30 Lab Report: [...] ... - Chemistry sodium, serum 141 mmol/L 392-670 5072/08/07 carbon dioxide, venous blood 34.0 mmol/L 21.0-32.0 [...] 1.40 mg/dL 0.00-1.00 cholesterol, serum 192 mg/dL 486-361 2465/10/19 triglyceride, serum, fasting 71 mg/dL 30-200 HDL cholesterol, serum 72 mg/dL 32-60 LDL cholesterol, serum 106 mg/dL 0-130 Lab Report: THEOPHYLLINE - Toxicology theophylline level, serum 3.1 ug/mL 10.0-20.0 Encounters Code Encounter Date Provider Facility CPT-90111 Level 4 Est. Patient 14:45:25 CDT Harinder Cr [facility] CPT-44160 Level 4 Est. Patient 09:15:13 CDT Harinder Cr [facility] CPT-23563 Level 3 Est. Patient 11:51:58 CDT Harinder W David [facility] CPT-83009 Level 3 Est. Patient 11:30:05 CDT Harinder Hernandez [facility] CPT-13645 Level 4 Est. Patient 10:19:23 CDT Harinder Hernandez [facility] CPT-42978 Level 3 Est. Patient 09:58:58 CDT Harinder Cr [facility] CPT-52033 Level 3 Est. Patient 12:37:21 CDT Harinder Hernandez [facility] CPT-05776 Level 3 Est. Patient 18:37:17 CDT Harinder Cr [facility] CPT-65340 Level 4 Est. Patient 11:15:54 CDT Nettie King MAHENDRA [facility] CPT-70626 Level 3 Est. Patient 16:42:24 CDT Harinder Cr [facility] CPT-87110 Level 3 Est. Patient 15:03:36 CDT Harinder Hernandez [facility] CPT-05982 Level 3 Est. Patient 15:03:20 CDT Harinder Cr [facility] CPT-91696 Level 3 Est. Patient 12:14:34 CDT Harinder Hernandez [facility] CPT-04484 Level 3 Est. Patient 13:47:15 CDT Harinder Cr [facility] CPT-64224 Level 3 Est. Patient 14:08:24 CDT Harinder Hernandez [facility] CPT-25898 Level 3 Est. Patient 10:07:15 CDT Harinder Cr [facility] CPT-01968 Level 3 Est. Patient 10:06:59 CDT Harinder Cr [facility] CPT-21625 Level 3 Est. Patient 15:53:29 CDT Jae Morgan [facility] CPT-80208 Level 3 Est. Patient 17:19:04 CDT Harinder W David [facility] CPT-19299 Level 3 Est. Patient 11:13:01 CDT Harinder Hernandez [facility] CPT-94071 Level 3 Est. Patient 09:03:58 CDT Harinder Hernandez [facility] CPT-60497 Level 3 Est. 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 Patient 09:35:49 ASSOCIATE PROFESSOR OF CHEMISTRY Harinder Hernandez [facility] CPT-20615 Level 3 Est. Patient 09:29:37 ASSOCIATE PROFESSOR OF CHEMISTRY Harinder Hernandez [facility] CPT-64797 Level 3 Est. Patient 15:51:07 CDT Harinder Hernandez [facility] CPT-25612 Level 3 Est. Patient 18:13:13 CDT Harnider Hernandez [facility] CPT-17961 Level 3 Est. Patient 10:44:19 CDT Harinder Hernandez [facility] CPT-64592 Level 4 Est. Patient 10:07:19 ASSOCIATE PROFESSOR OF CHEMISTRY Harinder Hernandez [facility] CPT-00295 Level 3 Est. Patient 15:59:32 ASSOCIATE PROFESSOR OF CHEMISTRY Harinder Cr [facility] Procedures Code Procedure Name Date Entry Date Standard Description CPT-76156 Abd compl w upright - XRAY USE ONLY 14:48:09 CDT 02/18 CPT-39712 Port a cath flush 13:46:05 CDT CPT-58122 Hip, complete, 2-3 views - XRAY USE ONLY 10:28:40 CDT CPT-87855 BMP - LAB USE ONLY 16:45:09 ASSOCIATE PROFESSOR OF CHEMISTRY CPT-37365 Port a cath flush 12:00:13 ASSOCIATE PROFESSOR OF CHEMISTRY CPT-TCMM Transitional Care Mgmt-Moderate 11:20:16 ASSOCIATE PROFESSOR OF CHEMISTRY CPT-38395 First Vx - Ix admin for Medicare patients 17:35:15 CDT CPT-46588 Fluzone Preservative Free Intramuscular Suspension 17:35 :15 CDT CPT-33032 Microalbumin - LAB USE ONLY 11:52:05 CDT CPT-TCMM Transitional Care Mgmt-Moderate 11:33:57 CDT CPT-51725 No Charge Offi Visit 14:11:29 CDT CPT-78380 Magnesium - LAB USE ONLY 10:45:44 CDT CPT-72668 Lipid - LAB USE ONLY 10:45:44 CDT CPT-40243 CBC - LAB USE ONLY 10:45:44 CDT CPT-09895 Venipuncture Draw Fee 10:45:43 CDT CPT-68779 Venipuncture Draw Fee 18:21:27 CDT CPT-JTINJ Asp/Joint Injection 18:38:04 CDT CPT-01395 Immunization Each Additional Inj 17:38:04 CDT CPT-98225 Immunization Single Admin 17:38:04 CDT CPT-84528 Prevnar 13 17:38:04 CDT CPT-13947 Fluzone Quadrivalent preservative free (>=3yrs.) 17:38: 04 CDT CPT-26662 No Charge Offi Visit 11:14:03 CDT CPT-70437 Chest 2V Frontal and Lat 14:00:18 CDT CPT-OV Office Visit 16:10:28 CDT CPT-JTINJ Asp/Joint Injection 09:03:57 CDT CPT-Cryo Cryotherapy 09:35:49 ASSOCIATE PROFESSOR OF CHEMISTRY CPT-JTINJ Asp/Joint Injection 09:34:45 ASSOCIATE PROFESSOR OF CHEMISTRY CPT-J2930 Solu Medrol 125 mg (Methyl Prednisolone Sodium Succinate) 20:37:27 CDT CPT-99943 Abx/Therapy Injection 20:37:27 CDT CPT-42684 Port a cath flush 08:15:51 CDT CPT-76943 Port a cath flush 09:54:16 CDT CPT-56074 Port a cath flush 09:38:02 CDT CPT-95405 Port a cath flush 11:00:27 ASSOCIATE PROFESSOR OF CHEMISTRY
--- OUTSIDE RECORDS SUMMARY | 2017-12-29 02:04 | XMS REPORT | Clinical Summary ---
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 NIFEDIPINE 06955916331 Active Harinder Hernandez DO Active AMLODIPINE BESYLATE 5 MG TABS 1 tablet by mouth daily AMLODIPINE BESYLATE 46585132885 No Longer Active Harinder Hernandez DO Active TOPAMAX 25 MG ORAL TABS 1 tab po BID TOPIRAMATE 83652351875 Active Kortney Mccain Active FLUTICASONE PROPIONATE 50 MCG/ACT SUSP 2 sprays per nostril daily PRN Allergies FLUTICASONE PROPIONATE 69386376305 Active Kortney Mccain Active NIFEDIPINE ER 30 MG ORAL [id number] 1 daily NIFEDIPINE 16616771946 No Longer Active Harinder Hernandez DO Active POTASSIUM CHLORIDE 20 MEQ ORAL PACK Take 1 tablet by mouth daily POTASSIUM CHLORIDE 75019225557 Active Ciera Pimentel Active FLOVENT HFA 110 MCG/ACT AERO 2 puffs inhaled b.i.d. FLUTICASONE PROPIONATE HFA 95302950900 Active Harinder Hernandez DO Active POTASSIUM CHLORIDE CR 10 MEQ CPCR 1 capsule by mouth daily POTASSIUM CHLORIDE 32546849401 Active Harinder Hernandez DO Active EPIPEN 2-BRUNA 0.3 MG/0.3ML INJ SOAJ 1 INJ NEEDED EPINEPHRINE 35124404251 Active Harinder Hernandez DO Active PREDNISONE 20 MG TAB 1 tab twice daily for 3 day, then one daily for three days PREDNISONE 09590316641 No Longer Active Harinder Hernandez DO Active PREDNISONE 20 MG TAB 1 tablet twice daily for 2 days, then 1 tablet once daily for 2 days PREDNISONE 34801433048 No Longer Active Harinder Hernandez DO Active ASMANEX 120 METERED DOSES 220 MCG/INH INH AEPB 2 puffs orally twice daily MOMETASONE FUROATE 53161278118 Active Jeri Sosa RPT,RMA Active TOPIRAMATE 25 MG TABS 1 tab po BID TOPIRAMATE 48607348167 No Longer Active Nettie Newberry APRN Active AMLODIPINE BESYLATE 5 MG ORAL TABS Take 1 tab po daily AMLODIPINE BESYLATE 10663099223 No Longer Active Nettie Newberry APRN Active MECLIZINE HCL 25 MG TAB 1 tablet three times daily for 3 days, then 1/2 tab three times daily for 3 days. MECLIZINE HCL 64105078214 No Longer Active Nettie Newberry APRN Active AMITRIPTYLINE HCL 25 MG ORAL TABS 1 q hs prn AMITRIPTYLINE HCL 25570995670 No Longer Active Nettei Newberry APRN Active DILAUDID 2 MG ORAL TABS Take 1/2 tab po every 4 hours as needed for pain 2014 HYDROMORPHONE HCL 68623793270 No Longer Active Nettie Newberry APRN Active CLOPIDOGREL BISULFATE 75 MG ORAL TABS 1 tab by mouth once daily CLOPIDOGREL BISULFATE 92355850392 Active Harinder Hernandez DO Active ATORVASTATIN CALCIUM 10 MG ORAL TABS 1 at bedtime ATORVASTATIN CALCIUM 39652329593 Active Tawnya Pardo MA Active LOVASTATIN 40 MG ORAL TABS Take 1 tab po every hs LOVASTATIN 70660724390 No Longer Active Harinder Hernandez DO Active PREDNISONE 20 MG TAB 2 tabs daily for 4 days, 1 tab daily for 4 days, 1/2 tab daily for 4 days PREDNISONE 42565328653 No Longer Active Harinder Hernandez DO Active LEVAQUIN 500 MG ORAL TABS Take 1 tab po daily x 8 days LEVOFLOXACIN 48337530308 No Longer Active Harinder Hernanedz DO Active VENTOLIN HFA 108 (90 BASE) MCG/ACT AERS 2 -4 puffs four times a day PRN 2013 ALBUTEROL SULFATE 85559319487 No Longer Active Jeri Sosa RPT,RMA Active ACEBUTOLOL HCL 200 MG CAPS 1 cap in the morning and 2 caps in the evening ACEBUTOLOL HCL 32733824851 No Longer Active Harinder Hernandez DO Active CEFDINIR 300 MG ORAL CAPS take 1 cap po bid x 10 days CEFDINIR 66105271672 No Longer Active Harinder Hernandez DO Active LOVASTATIN 40 MG TABS 1 pill by mouth nightly for cholesterol LOVASTATIN 96258206548 No Longer Active Nettie Newberry APRN Active NITROSTAT 0.4 MG SUBL 1 tab under tongueas needed for chest pain ( may take 3 total, 5 min apart, then call 911) NITROGLYCERIN 09895764057 No Longer Active Nettie Newberry APRN Active POTASSIUM CHLORIDE CR 10 MEQ CPCR 1 capsule by mouth daily 02/14 POTASSIUM CHLORIDE 46535844852 No Longer Active Nettie Newberry APRN Active TESSALON PERLES 100 MG CAP 1 to 2 tablets by mouth 3 times daily as needed for cough BENZONATATE 00008143959 No Longer Active Nettie Newberry APRN Active THEOPHYLLINE ER 200 MG ORAL [id number] Take 1 tab every 12 hours THEOPHYLLINE 10053613807 Active Tawyna Pardo MA Active PREDNISONE 20 MG TAB 2 po qd x 5 days PREDNISONE 55817120381 No Longer Active Jae Morgan MD Active AZITHROMYCIN 250 MG TABS 2 po qd x 1 day, then 1 po qd x 4 days AZITHROMYCIN 61602923152 No Longer Active Jae Morgan MD Active PREDNISONE 20 MG TAB 1 tab twice daily for 3 day, then one daily for three days PREDNISONE 58805481490 No Longer Active Jae Morgan MD Active SINGULAIR 10 MG TABS 1 pill by mouth every evening for breathing. MONTELUKAST SODIUM 32491432369 Active Tawnya Pardo MA Active TYLENOL 325 MG TAB 3 by mouth q4h as needed ACETAMINOPHEN 82435326438 Active Harinder Hernandez DO Active POTASSIUM CHLORIDE ER 10 MEQ CR-TABS take 1 tab po daily POTASSIUM CHLORIDE 28313084953 No Longer Active Harinder Hernandez DO Active PREDNISONE 20 MG TAB 1 TID x 2 days, then 1 BID x 3 days, then 1 Daily x 3 days, then stop PREDNISONE 60206361559 No Longer Active Jillina Frazell [employer]ER Active LEVAQUIN 500 MG TAB 1 tablet by mouth daily LEVOFLOXACIN 74540709474 No Longer Active Jillina Frazell [employer]ER Active NEURONTIN 300 MG CAP 1 cap by mouth three times daily for restless leg 06/22 GABAPENTIN 33094410898 No Longer Active Harinder Hernandez DO Active BENZONATATE 100 MG CAPS 1 cap po TID PRN BENZONATATE 87514638971 No Longer Active Harinder Hernandez DO Active MONTELUKAST SODIUM 10 MG TABS 1 tab po in the evening MONTELUKAST SODIUM 77277579905 No Longer Active Harinder Hernandez DO Active MUPIROCIN 2 % OINT apply to affected area BID x 14 days MUPIROCIN 52583854308 No Longer Active Harinder Hernandez DO Active TYLENOL EXTRA STRENGTH 500 MG TABS as needed ACETAMINOPHEN 35143319516 No Longer Active Harinder Hernandez DO Active PREDNISONE 10 MG TABS 1 tab po daily PREDNISONE 05930085315 No Longer Active Harinder Hernandez DO Active PREDNISONE 20 MG TAB 2 tabs daily for 4 days, 1 tab daily for 4 days, 1/2 tab daily for 4 days PREDNISONE 62313381646 No Longer Active Harinder Hernandez DO Active AZITHROMYCIN 250 MG TABS 2 po qd x 1 day, then 1 po qd x 4 days AZITHROMYCIN 17031461128 No Longer Active Harinder Hernandez DO Active PREDNISONE 20 MG TAB 3 tabs today, then 1 tab twice daily for 3 day, then one daily for three days PREDNISONE 04864626493 No Longer Active Harinder Hernandez DO Active NIFEDIAC CC 30 MG [id number] 1 tablet daily for raynaud's syndrome NIFEDIPINE 78256092336 No Longer Active Tawnya Pardo MA Active AMBIEN 10 MG TAB 1/2 tab by mouth at bedtime as needed for sleep ZOLPIDEM TARTRATE 20169542952 Active Kortney Mccain Active CLONAZEPAM 1 MG TABS 1 tablet at bedtime for insomnia and restless legs 09/14 CLONAZEPAM 87613574574 Active Harinder Hernandez DO Active CLONAZEPAM 0.5 MG TABS 1 tab po daily CLONAZEPAM 07706884234 No Longer Active Harinder Hernandez DO Active PREDNISONE 10 MG TAB 1 tablet daily for COPD PREDNISONE 08619646293 Active Ciera Pimenetl Active PROAIR HFA 108 (90 BASE) MCG/ACT AERS 2 puffs four times a day as needed 2012 ALBUTEROL SULFATE 52373272148 Active Harinder Hernandez DO Active FLOVENT HFA 110 MCG/ACT AERO 2 puffs inhaled b.i.d. FLUTICASONE PROPIONATE HFA 48727359976 Active Kortney Mccain Active ACIPHEX 20 MG TBEC 1 tab po daily RABEPRAZOLE SODIUM 47371299664 Active Kaylah Newberry Active CLONAZEPAM 0.5 MG TABS 1 tab po daily CLONAZEPAM 0.5 MG TABS 965045 CLONAZEPAM Inactive PREDNISONE 20 MG TAB 3 tabs today, then 1 tab twice daily for 3 day, then one daily for three days PREDNISONE 20 MG TAB 563581 PREDNISONE Inactive PREDNISONE 20 MG TAB 2 tabs daily for 4 days, 1 tab daily for 4 days, 1/2 tab daily for 4 days PREDNISONE 20 MG TAB 238886 PREDNISONE Inactive PREDNISONE 10 MG TABS 1 tab po daily PREDNISONE 10 MG TABS 659748 PREDNISONE Inactive TYLENOL EXTRA STRENGTH 500 MG TABS as needed TYLENOL EXTRA STRENGTH 500 MG TABS 984218 ACETAMINOPHEN Inactive MUPIROCIN 2 % OINT apply to affected area BID x 14 days MUPIROCIN 2 % OINT 451887 MUPIROCIN Inactive MONTELUKAST SODIUM 10 MG TABS 1 tab po in the evening MONTELUKAST SODIUM 10 MG TABS 20010818 MONTELUKAST SODIUM Inactive BENZONATATE 100 MG CAPS 1 cap po TID PRN BENZONATATE 100 MG CAPS 411704 BENZONATATE Inactive NEURONTIN 300 MG CAP 1 cap by mouth three times daily for restless leg 06/22 NEURONTIN 300 MG CAP 932418 GABAPENTIN Inactive LEVAQUIN 500 MG TAB 1 tablet by mouth daily LEVAQUIN 500 MG TAB 807946 LEVOFLOXACIN Inactive PREDNISONE 20 MG TAB 1 TID x 2 days, then 1 BID x 3 days, then 1 Daily x 3 days, then stop PREDNISONE 20 MG TAB 310965 PREDNISONE Inactive POTASSIUM CHLORIDE ER 10 MEQ CR-TABS take 1 tab po daily POTASSIUM CHLORIDE ER 10 MEQ CR-TABS POTASSIUM CHLORIDE Inactive PREDNISONE 20 MG TAB 1 tab twice daily for 3 day, then one daily for three days PREDNISONE 20 MG TAB 070171 PREDNISONE Inactive TESSALON PERLES 100 MG CAP 1 to 2 tablets by mouth 3 times daily as needed for cough TESSALON PERLES 100 MG CAP 671552 BENZONATATE Inactive POTASSIUM CHLORIDE CR 10 MEQ CPCR 1 capsule by mouth daily 02/14 POTASSIUM CHLORIDE CR 10 MEQ CPCR POTASSIUM CHLORIDE Inactive NITROSTAT 0.4 MG SUBL 1 tab under tongueas needed for chest pain ( may take 3 total, 5 min apart, then call 911) NITROSTAT 0.4 MG SUBL 105825 NITROGLYCERIN Inactive LOVASTATIN 40 MG TABS 1 pill by mouth nightly for cholesterol LOVASTATIN 40 MG TABS 999681 LOVASTATIN Inactive CEFDINIR 300 MG ORAL CAPS take 1 cap po bid x 10 days CEFDINIR 300 MG ORAL CAPS 975857 CEFDINIR Inactive ACEBUTOLOL HCL 200 MG CAPS 1 cap in the morning and 2 caps in the evening ACEBUTOLOL HCL 200 MG CAPS 568142 ACEBUTOLOL HCL Inactive VENTOLIN HFA 108 (90 BASE) MCG/ACT AERS 2 -4 puffs four times a day PRN 2013 VENTOLIN HFA 108 (90 BASE) MCG/ACT AERS ALBUTEROL SULFATE Inactive LEVAQUIN 500 MG ORAL TABS Take 1 tab po daily x 8 days LEVAQUIN 500 MG ORAL TABS 501455 LEVOFLOXACIN Inactive PREDNISONE 20 MG TAB 2 tabs daily for 4 days, 1 tab daily for 4 days, 1/2 tab daily for 4 days PREDNISONE 20 MG TAB 336938 PREDNISONE Inactive LOVASTATIN 40 MG ORAL TABS Take 1 tab po every hs LOVASTATIN 40 MG ORAL TABS 572748 LOVASTATIN Inactive DILAUDID 2 MG ORAL TABS Take 1/2 tab po every 4 hours as needed for pain 2014 DILAUDID 2 MG ORAL TABS 007443 HYDROMORPHONE HCL Inactive AMITRIPTYLINE HCL 25 MG ORAL TABS 1 q hs prn AMITRIPTYLINE HCL 25 MG ORAL TABS 608883 AMITRIPTYLINE HCL Inactive MECLIZINE HCL 25 MG TAB 1 tablet three times daily for 3 days, then 1/2 tab three times daily for 3 days. MECLIZINE HCL 25 MG TAB 336215 MECLIZINE HCL Inactive AMLODIPINE BESYLATE 5 MG ORAL TABS Take 1 tab po daily AMLODIPINE BESYLATE 5 MG ORAL TABS 182783 AMLODIPINE BESYLATE Inactive TOPIRAMATE 25 MG TABS 1 tab po BID TOPIRAMATE 25 MG TABS 064468 TOPIRAMATE Inactive PREDNISONE 20 MG TAB 1 tablet twice daily for 2 days, then 1 tablet once daily for 2 days PREDNISONE 20 MG TAB 298917 PREDNISONE Inactive PREDNISONE 20 MG TAB 1 tab twice daily for 3 day, then one daily for three days PREDNISONE 20 MG TAB 668572 PREDNISONE Inactive NIFEDIPINE ER 30 MG ORAL [id number] 1 daily NIFEDIPINE ER 30 MG ORAL [id number] NIFEDIPINE Inactive AMLODIPINE BESYLATE 5 MG TABS 1 tablet by mouth daily AMLODIPINE BESYLATE 5 MG TABS 005232 AMLODIPINE BESYLATE Inactive AZITHROMYCIN 250 MG TABS 2 po qd x 1 day, then 1 po qd x 4 days AZITHROMYCIN 250 MG TABS 5347040 AZITHROMYCIN Inactive AZITHROMYCIN 250 MG TABS 2 po qd x 1 day, then 1 po qd x 4 days AZITHROMYCIN 250 MG TABS 7216252 AZITHROMYCIN Inactive PREDNISONE 20 MG TAB 2 po qd x 5 days PREDNISONE 20 MG TAB 176955 PREDNISONE Inactive Vital Signs Date Name Value [...] Panel - Chemistry sodium, serum 137 mmol/L 065-339 8509/01/03 potassium, serum 3.4 mmol/L 3.5-5.2 chloride, serum [...] Magnesium - Chemistry cholesterol, serum 180 mg/dL 442-069 8846/08/08 triglyceride, serum, fasting 92 mg/dL 30-200 HDL cholesterol, serum 66 mg/dL 32-96 LDL cholesterol, serum 96 mg/dL 0-130 sodium, serum 142 mmol/L 147-540 9866/08/08 carbon dioxide, venous blood 27.4 mmol/L 21.0-32.0 [...] 10.0-20.0 Encounters Code Encounter Date Provider Facility CPT-31035 Level 4 Est. Patient 10:19:23 CDT Harinder Cr [facility] CPT-10027 Level 3 Est. Patient 09:58:58 CDT Harinder Cr [facility] CPT-52546 Level 3 Est. Patient 12:37:21 CDT Harinder Cr [facility] CPT-16313 Level 3 Est. Patient 18:37:17 CDT Harinder Cr [facility] CPT-11875 Level 4 Est. Patient 11:15:54 CDT Nettie Newberry [facility] CPT-49406 Level 3 Est. Patient 16:42:24 CDT Harinder Cr [facility] CPT-44659 Level 3 Est. Patient 15:03:36 CDT Harinder Cr [facility] CPT-95363 Level 3 Est. Patient 15:03:20 CDT Harinder Cr [facility] CPT-03705 Level 3 Est. Patient 12:14:34 CDT Harinder Hernandez [facility] CPT-59989 Level 3 Est. Patient 13:47:15 CDT Harinder Hernandez [facility] CPT-07090 Level 3 Est. Patient 14:08:24 CDT Harinder Hernandez [facility] CPT-04364 Level 3 Est. Patient 10:07:15 CDT Harinder Hernandez [facility] CPT-32593 Level 3 Est. Patient 10:06:59 CDT Harinder Hernandez [facility] CPT-04483 Level 3 Est. Patient 15:53:29 CDT Jae Morgan [facility] CPT-68558 Level 3 Est. Patient 17:19:04 CDT Harinder Hernandez [facility] CPT-06256 Level 3 Est. Patient 11:13:01 CDT Harinder Hernandez [facility] CPT-46074 Level 3 Est. Patient 09:03:58 CDT Harinder Cr [facility] CPT-06880 Level 3 Est. Patient 14:46:45 [employer] Harinder Hernandez [facility] CPT-15228 Level 3 Est. Patient 09:35:49 [employer] Harinder Hernandez [facility] CPT-68209 Level 3 Est. Patient 09:29:37 [employer] Harinder Hernandez [facility] CPT-58739 Level 3 Est. Patient 15:51:07 CDT Harinder Hernandez [facility] CPT-12009 Level 3 Est. Patient 18:13:13 CDT Harinder Shaye Hernandez [facility] CPT-13061 Level 3 Est. Patient 10:44:19 CDT Harinder Cr [facility] CPT-70671 Level 4 Est. Patient 10:07:19 [employer] Harinder Cr [facility] CPT-88235 Level 3 Est. Patient 15:59:32 [employer] Harinder Cr [facility] Procedures Code Procedure Name Date Entry Date Standard Description CPT-85288 Hip, complete, 2-3 views - XRAY USE ONLY 10:28:40 CDT CPT-89556 BMP - LAB USE ONLY 16:45:09 [employer] CPT-70675 Port a cath flush 12:00:13 [employer] CPT-TCMM Transitional Care Mgmt-Moderate 11:20:16 [employer] CPT-22531 First Vx - Ix admin for Medicare patients 17:35:15 CDT CPT-95930 Fluzone Preservative Free Intramuscular Suspension 17:35 :15 CDT CPT-18249 Microalbumin - LAB USE ONLY 11:52:05 CDT CPT-TCMM Transitional Care Mgmt-Moderate 11:33:57 CDT CPT-46281 No Charge Offi Visit 14:11:29 CDT CPT-87564 Magnesium - LAB USE ONLY 10:45:44 CDT CPT-88594 Lipid - LAB USE ONLY 10:45:44 CDT CPT-51021 CBC - LAB USE ONLY 10:45:44 CDT CPT-42838 Venipuncture Draw Fee 10:45:43 CDT CPT-95717 Venipuncture Draw Fee 18:21:27 CDT CPT-JTINJ Asp/Joint Injection 18:38:04 CDT CPT-21474 Immunization Each Additional Inj 17:38:04 CDT CPT-25505 Immunization Single Admin 17:38:04 CDT CPT-60349 Prevnar 13 17:38:04 CDT CPT-61236 Fluzone Quadrivalent preservative free (>=3yrs.) 17:38: 04 CDT CPT-70541 No Charge Offi Visit 11:14:03 CDT CPT-70931 Chest 2V Frontal and Lat 14:00:18 CDT CPT-OV Office Visit 16:10:28 CDT CPT-JTINJ Asp/Joint Injection 09:03:57 CDT CPT-Cryo Cryotherapy 09:35:49 [employer] CPT-JTINJ Asp/Joint Injection 09:34:45 [employer] CPT-J2930 Solu Medrol 125 mg (Methyl Prednisolone Sodium Succinate) 20:37:27 CDT CPT-61089 Abx/Therapy Injection 20:37:27 CDT CPT-40497 Port a cath flush 08:15:51 CDT CPT-56943 Port a cath flush 09:54:16 CDT CPT-79006 Port a cath flush 09:38:02 CDT CPT-27742 Port a cath flush 11:00:27 [employer]
--- OUTSIDE RECORDS SUMMARY | 2017-12-29 02:06 | XMS REPORT | Clinical Summary ---
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 NIFEDIPINE 52082263824 Active Harinder Hernandez DO Active AMLODIPINE BESYLATE 5 MG TABS 1 tablet by mouth daily AMLODIPINE BESYLATE 04778931260 No Longer Active Harinder Hernandez DO Active TOPAMAX 25 MG ORAL TABS 1 tab po BID TOPIRAMATE 15463585864 Active Kortney Mccain Active FLUTICASONE PROPIONATE 50 MCG/ACT SUSP 2 sprays per nostril daily PRN Allergies FLUTICASONE PROPIONATE 22301936932 Active Kortney Mccain Active NIFEDIPINE ER 30 MG ORAL [id number] 1 daily NIFEDIPINE 84876450199 No Longer Active Harinder Hernandez DO Active POTASSIUM CHLORIDE 20 MEQ ORAL PACK Take 1 tablet by mouth daily POTASSIUM CHLORIDE 83530530635 Active Ciera Pimentel Active FLOVENT HFA 110 MCG/ACT AERO 2 puffs inhaled b.i.d. FLUTICASONE PROPIONATE HFA 78328674031 Active Harinder Hernandez DO Active POTASSIUM CHLORIDE CR 10 MEQ CPCR 1 capsule by mouth daily POTASSIUM CHLORIDE 96875829090 Active Harinder Hernandez DO Active EPIPEN 2-BRUNA 0.3 MG/0.3ML INJ SOAJ 1 INJ NEEDED EPINEPHRINE 66534657056 Active Harinder Hernandez DO Active PREDNISONE 20 MG TAB 1 tab twice daily for 3 day, then one daily for three days PREDNISONE 65391641475 No Longer Active Harinder Hernandez DO Active PREDNISONE 20 MG TAB 1 tablet twice daily for 2 days, then 1 tablet once daily for 2 days PREDNISONE 63506126199 No Longer Active Harinder Hernandez DO Active ASMANEX 120 METERED DOSES 220 MCG/INH INH AEPB 2 puffs orally twice daily MOMETASONE FUROATE 57430139840 Active Jeri Sosa RPT,RMA Active TOPIRAMATE 25 MG TABS 1 tab po BID TOPIRAMATE 10037760014 No Longer Active Nettie Newberry APRN Active AMLODIPINE BESYLATE 5 MG ORAL TABS Take 1 tab po daily AMLODIPINE BESYLATE 75726451307 No Longer Active Nettie Newberry APRN Active MECLIZINE HCL 25 MG TAB 1 tablet three times daily for 3 days, then 1/2 tab three times daily for 3 days. MECLIZINE HCL 74302639215 No Longer Active Nettie Newberry APRN Active AMITRIPTYLINE HCL 25 MG ORAL TABS 1 q hs prn AMITRIPTYLINE HCL 55379023865 No Longer Active Nettie Newberry APRN Active DILAUDID 2 MG ORAL TABS Take 1/2 tab po every 4 hours as needed for pain 2014 HYDROMORPHONE HCL 08922492186 No Longer Active Nettie Newberry APRN Active CLOPIDOGREL BISULFATE 75 MG ORAL TABS 1 tab by mouth once daily CLOPIDOGREL BISULFATE 49047880285 Active Harinder Hernandez DO Active ATORVASTATIN CALCIUM 10 MG ORAL TABS 1 at bedtime ATORVASTATIN CALCIUM 83171140738 Active Tawnya Pardo MA Active LOVASTATIN 40 MG ORAL TABS Take 1 tab po every hs LOVASTATIN 60969453825 No Longer Active Harinder Hernandez DO Active PREDNISONE 20 MG TAB 2 tabs daily for 4 days, 1 tab daily for 4 days, 1/2 tab daily for 4 days PREDNISONE 47234084926 No Longer Active Harinder Hernandez DO Active LEVAQUIN 500 MG ORAL TABS Take 1 tab po daily x 8 days LEVOFLOXACIN 80091786994 No Longer Active Harinder Hernandez DO Active VENTOLIN HFA 108 (90 BASE) MCG/ACT AERS 2 -4 puffs four times a day PRN 2013 ALBUTEROL SULFATE 66550174770 No Longer Active Jeri Sosa RPT,RMA Active ACEBUTOLOL HCL 200 MG CAPS 1 cap in the morning and 2 caps in the evening ACEBUTOLOL HCL 44722217552 No Longer Active Harinder Hernandez DO Active CEFDINIR 300 MG ORAL CAPS take 1 cap po bid x 10 days CEFDINIR 94818688928 No Longer Active Harinder Hernandez DO Active LOVASTATIN 40 MG TABS 1 pill by mouth nightly for cholesterol LOVASTATIN 63240331600 No Longer Active Nettie Newberry APRN Active NITROSTAT 0.4 MG SUBL 1 tab under tongueas needed for chest pain ( may take 3 total, 5 min apart, then call 911) NITROGLYCERIN 90082468349 No Longer Active Nettie Newberry APRN Active POTASSIUM CHLORIDE CR 10 MEQ CPCR 1 capsule by mouth daily 02/14 POTASSIUM CHLORIDE 03053108705 No Longer Active Nettie Newberry APRN Active TESSALON PERLES 100 MG CAP 1 to 2 tablets by mouth 3 times daily as needed for cough BENZONATATE 40309756545 No Longer Active Nettie Newberry APRN Active THEOPHYLLINE ER 200 MG ORAL [id number] Take 1 tab every 12 hours THEOPHYLLINE 44391531523 Active Tawnya Pardo MA Active PREDNISONE 20 MG TAB 2 po qd x 5 days PREDNISONE 43248041556 No Longer Active Jae Morgan MD Active AZITHROMYCIN 250 MG TABS 2 po qd x 1 day, then 1 po qd x 4 days AZITHROMYCIN 94327200228 No Longer Active Jae Morgan MD Active PREDNISONE 20 MG TAB 1 tab twice daily for 3 day, then one daily for three days PREDNISONE 69434671401 No Longer Active Jae Morgan MD Active SINGULAIR 10 MG TABS 1 pill by mouth every evening for breathing. MONTELUKAST SODIUM 09661486146 Active Tawnya Pardo MA Active TYLENOL 325 MG TAB 3 by mouth q4h as needed ACETAMINOPHEN 10285448242 Active Harinder Hernandez DO Active POTASSIUM CHLORIDE ER 10 MEQ CR-TABS take 1 tab po daily POTASSIUM CHLORIDE 74656552391 No Longer Active Harinder Hernandez DO Active PREDNISONE 20 MG TAB 1 TID x 2 days, then 1 BID x 3 days, then 1 Daily x 3 days, then stop PREDNISONE 65119022292 No Longer Active Jillina Frazell [employer]PER[employer] Active LEVAQUIN 500 MG TAB 1 tablet by mouth daily LEVOFLOXACIN 42232914970 No Longer Active Jillina Frazell [employer] Active NEURONTIN 300 MG CAP 1 cap by mouth three times daily for restless leg 06/22 GABAPENTIN 09073409864 No Longer Active Harinder Hernandez DO Active BENZONATATE 100 MG CAPS 1 cap po TID PRN BENZONATATE 14766768319 No Longer Active aHrinder Hernandez DO Active MONTELUKAST SODIUM 10 MG TABS 1 tab po in the evening MONTELUKAST SODIUM 01607955469 No Longer Active Harinder Hernandez DO Active MUPIROCIN 2 % OINT apply to affected area BID x 14 days MUPIROCIN 06037475559 No Longer Active Harinder Hernandez DO Active TYLENOL EXTRA STRENGTH 500 MG TABS as needed ACETAMINOPHEN 13540405145 No Longer Active Harinder Hernandez DO Active PREDNISONE 10 MG TABS 1 tab po daily PREDNISONE 97439341941 No Longer Active Harinder Hernandez DO Active PREDNISONE 20 MG TAB 2 tabs daily for 4 days, 1 tab daily for 4 days, 1/2 tab daily for 4 days PREDNISONE 05597499131 No Longer Active Harinder Hernandez DO Active AZITHROMYCIN 250 MG TABS 2 po qd x 1 day, then 1 po qd x 4 days AZITHROMYCIN 81236466795 No Longer Active Harinder Hernandez DO Active PREDNISONE 20 MG TAB 3 tabs today, then 1 tab twice daily for 3 day, then one daily for three days PREDNISONE 15061718935 No Longer Active Harinder Hernandez DO Active NIFEDIAC CC 30 MG [id number] 1 tablet daily for raynaud's syndrome NIFEDIPINE 91123607473 No Longer Active Tawnya Pardo MA Active AMBIEN 10 MG TAB 1/2 tab by mouth at bedtime as needed for sleep ZOLPIDEM TARTRATE 95956425207 Active Kortney Mccain Active CLONAZEPAM 1 MG TABS 1 tablet at bedtime for insomnia and restless legs 09/14 CLONAZEPAM 73214374325 Active Harinder Hernandez DO Active CLONAZEPAM 0.5 MG TABS 1 tab po daily CLONAZEPAM 91578324843 No Longer Active Harinder Hernandez DO Active PREDNISONE 10 MG TAB 1 tablet daily for COPD PREDNISONE 15178087574 Active Ciera Pimentel Active PROAIR HFA 108 (90 BASE) MCG/ACT AERS 2 puffs four times a day as needed 2012 ALBUTEROL SULFATE 28656485050 Active Harinder Hernandez DO Active FLOVENT HFA 110 MCG/ACT AERO 2 puffs inhaled b.i.d. FLUTICASONE PROPIONATE HFA 58400086721 Active Kortney Mccain Active ACIPHEX 20 MG TBEC 1 tab po daily RABEPRAZOLE SODIUM 84572042721 Active Kaylah Newberry Active CLONAZEPAM 0.5 MG TABS 1 tab po daily CLONAZEPAM 0.5 MG TABS 698399 CLONAZEPAM Inactive PREDNISONE 20 MG TAB 3 tabs today, then 1 tab twice daily for 3 day, then one daily for three days PREDNISONE 20 MG TAB 722291 PREDNISONE Inactive PREDNISONE 20 MG TAB 2 tabs daily for 4 days, 1 tab daily for 4 days, 1/2 tab daily for 4 days PREDNISONE 20 MG TAB 241643 PREDNISONE Inactive PREDNISONE 10 MG TABS 1 tab po daily PREDNISONE 10 MG TABS 457472 PREDNISONE Inactive TYLENOL EXTRA STRENGTH 500 MG TABS as needed TYLENOL EXTRA STRENGTH 500 MG TABS 484311 ACETAMINOPHEN Inactive MUPIROCIN 2 % OINT apply to affected area BID x 14 days MUPIROCIN 2 % OINT 445468 MUPIROCIN Inactive MONTELUKAST SODIUM 10 MG TABS 1 tab po in the evening MONTELUKAST SODIUM 10 MG TABS 20010818 MONTELUKAST SODIUM Inactive BENZONATATE 100 MG CAPS 1 cap po TID PRN BENZONATATE 100 MG CAPS 854146 BENZONATATE Inactive NEURONTIN 300 MG CAP 1 cap by mouth three times daily for restless leg 06/22 NEURONTIN 300 MG CAP 398273 GABAPENTIN Inactive LEVAQUIN 500 MG TAB 1 tablet by mouth daily LEVAQUIN 500 MG TAB 035177 LEVOFLOXACIN Inactive PREDNISONE 20 MG TAB 1 TID x 2 days, then 1 BID x 3 days, then 1 Daily x 3 days, then stop PREDNISONE 20 MG TAB 689498 PREDNISONE Inactive POTASSIUM CHLORIDE ER 10 MEQ CR-TABS take 1 tab po daily POTASSIUM CHLORIDE ER 10 MEQ CR-TABS POTASSIUM CHLORIDE Inactive PREDNISONE 20 MG TAB 1 tab twice daily for 3 day, then one daily for three days PREDNISONE 20 MG TAB 407030 PREDNISONE Inactive TESSALON PERLES 100 MG CAP 1 to 2 tablets by mouth 3 times daily as needed for cough TESSALON PERLES 100 MG CAP 946784 BENZONATATE Inactive POTASSIUM CHLORIDE CR 10 MEQ CPCR 1 capsule by mouth daily 02/14 POTASSIUM CHLORIDE CR 10 MEQ CPCR POTASSIUM CHLORIDE Inactive NITROSTAT 0.4 MG SUBL 1 tab under tongueas needed for chest pain ( may take 3 total, 5 min apart, then call 911) NITROSTAT 0.4 MG SUBL 025724 NITROGLYCERIN Inactive LOVASTATIN 40 MG TABS 1 pill by mouth nightly for cholesterol LOVASTATIN 40 MG TABS 097824 LOVASTATIN Inactive CEFDINIR 300 MG ORAL CAPS take 1 cap po bid x 10 days CEFDINIR 300 MG ORAL CAPS 761201 CEFDINIR Inactive ACEBUTOLOL HCL 200 MG CAPS 1 cap in the morning and 2 caps in the evening ACEBUTOLOL HCL 200 MG CAPS 951222 ACEBUTOLOL HCL Inactive VENTOLIN HFA 108 (90 BASE) MCG/ACT AERS 2 -4 puffs four times a day PRN 2013 VENTOLIN HFA 108 (90 BASE) MCG/ACT AERS ALBUTEROL SULFATE Inactive LEVAQUIN 500 MG ORAL TABS Take 1 tab po daily x 8 days LEVAQUIN 500 MG ORAL TABS 675706 LEVOFLOXACIN Inactive PREDNISONE 20 MG TAB 2 tabs daily for 4 days, 1 tab daily for 4 days, 1/2 tab daily for 4 days PREDNISONE 20 MG TAB 039113 PREDNISONE Inactive LOVASTATIN 40 MG ORAL TABS Take 1 tab po every hs LOVASTATIN 40 MG ORAL TABS 718504 LOVASTATIN Inactive DILAUDID 2 MG ORAL TABS Take 1/2 tab po every 4 hours as needed for pain 2014 DILAUDID 2 MG ORAL TABS 889084 HYDROMORPHONE HCL Inactive AMITRIPTYLINE HCL 25 MG ORAL TABS 1 q hs prn AMITRIPTYLINE HCL 25 MG ORAL TABS 163273 AMITRIPTYLINE HCL Inactive MECLIZINE HCL 25 MG TAB 1 tablet three times daily for 3 days, then 1/2 tab three times daily for 3 days. MECLIZINE HCL 25 MG TAB 957788 MECLIZINE HCL Inactive AMLODIPINE BESYLATE 5 MG ORAL TABS Take 1 tab po daily AMLODIPINE BESYLATE 5 MG ORAL TABS 639414 AMLODIPINE BESYLATE Inactive TOPIRAMATE 25 MG TABS 1 tab po BID TOPIRAMATE 25 MG TABS 923645 TOPIRAMATE Inactive PREDNISONE 20 MG TAB 1 tablet twice daily for 2 days, then 1 tablet once daily for 2 days PREDNISONE 20 MG TAB 087425 PREDNISONE Inactive PREDNISONE 20 MG TAB 1 tab twice daily for 3 day, then one daily for three days PREDNISONE 20 MG TAB 933929 PREDNISONE Inactive NIFEDIPINE ER 30 MG ORAL [id number] 1 daily NIFEDIPINE ER 30 MG ORAL [id number] NIFEDIPINE Inactive AMLODIPINE BESYLATE 5 MG TABS 1 tablet by mouth daily AMLODIPINE BESYLATE 5 MG TABS 636338 AMLODIPINE BESYLATE Inactive AZITHROMYCIN 250 MG TABS 2 po qd x 1 day, then 1 po qd x 4 days AZITHROMYCIN 250 MG TABS 8962759 AZITHROMYCIN Inactive AZITHROMYCIN 250 MG TABS 2 po qd x 1 day, then 1 po qd x 4 days AZITHROMYCIN 250 MG TABS 2049381 AZITHROMYCIN Inactive PREDNISONE 20 MG TAB 2 po qd x 5 days PREDNISONE 20 MG TAB 833709 PREDNISONE Inactive Vital Signs Date Name Value [...] Panel - Chemistry sodium, serum 137 mmol/L 017-470 0793/01/03 potassium, serum 3.4 mmol/L 3.5-5.2 chloride, serum [...] Magnesium - Chemistry cholesterol, serum 180 mg/dL 525-967 2732/08/08 triglyceride, serum, fasting 92 mg/dL 30-200 HDL cholesterol, serum 66 mg/dL 32-96 LDL cholesterol, serum 96 mg/dL 0-130 sodium, serum 142 mmol/L 039-735 6118/08/08 carbon dioxide, venous blood 27.4 mmol/L 21.0-32.0 [...] 10.0-20.0 Encounters Code Encounter Date Provider Facility CPT-32365 Level 4 Est. Patient 10:19:23 CDT Harinder Cr [facility] CPT-75725 Level 3 Est. Patient 09:58:58 CDT Harinder Cr [facility] CPT-58482 Level 3 Est. Patient 12:37:21 CDT Harinder Cr [facility] CPT-89258 Level 3 Est. Patient 18:37:17 CDT Harinder Cr [facility] CPT-72298 Level 4 Est. Patient 11:15:54 CDT Nettie Newberry [facility] [place] CPT-49431 Level 3 Est. Patient 16:42:24 CDT Harinder Cr [facility] CPT-51053 Level 3 Est. Patient 15:03:36 CDT Harinder Cr [facility] CPT-27368 Level 3 Est. Patient 15:03:20 CDT Harinder Cr [facility] CPT-58317 Level 3 Est. Patient 12:14:34 CDT Harinder Hernandez [facility] CPT-48829 Level 3 Est. Patient 13:47:15 CDT Harinder Hernandez [facility] CPT-80338 Level 3 Est. Patient 14:08:24 CDT Harinder Hernandez [facility] CPT-75731 Level 3 Est. Patient 10:07:15 CDT Harinder Hernandez [facility] CPT-15950 Level 3 Est. Patient 10:06:59 CDT Harinder Hernandez [facility] CPT-77860 Level 3 Est. Patient 15:53:29 CDT Jae Morgan [facility] CPT-90474 Level 3 Est. Patient 17:19:04 CDT Harinder Hernandez [facility] CPT-37058 Level 3 Est. Patient 11:13:01 CDT Harinder Hernandez [facility] CPT-22526 Level 3 Est. Patient 09:03:58 CDT Harinder Cr [facility] CPT-67159 Level 3 Est. Patient 14:46:45 [employer] OPERATOR Harinder Hernandez [facility] CPT-57696 Level 3 Est. Patient 09:35:49 [employer]TRIDGE LOADING OPERATOR Harinder Hernandez [facility] CPT-62077 Level 3 Est. Patient 09:29:37 [employer]TRIDGE LOADING OPERATOR Harinder Hernandez [facility] CPT-59892 Level 3 Est. Patient 15:51:07 CDT Harinder Hernandez [facility] CPT-88535 Level 3 Est. Patient 18:13:13 CDT Harinder Shaye Hernandez [facility] CPT-43082 Level 3 Est. Patient 10:44:19 CDT Harinder Cr [facility] CPT-76431 Level 4 Est. Patient 10:07:19 CARTRIDGE LOADING OPERATOR Harinder Cr [facility] CPT-16093 Level 3 Est. Patient 15:59:32 CARTRIDGE LOADING OPERATOR Harinder Cr [facility] Procedures Code Procedure Name Date Entry Date Standard Description CPT-98025 Hip, complete, 2-3 views - XRAY USE ONLY 10:28:40 CDT CPT-24973 BMP - LAB USE ONLY 16:45:09 [employer]IDGE LOADING OPERATOR CPT-43086 Port a cath flush 12:00:13 [employer]TRIDGE LOADING OPERATOR CPT-TCMM Transitional Care Mgmt-Moderate 11:20:16 [employer]TRIDGE LOADING OPERATOR CPT-90243 First Vx - Ix admin for Medicare patients 17:35:15 CDT CPT-70378 Fluzone Preservative Free Intramuscular Suspension 17:35 :15 CDT CPT-20419 Microalbumin - LAB USE ONLY 11:52:05 CDT CPT-TCMM Transitional Care Mgmt-Moderate 11:33:57 CDT CPT-79529 No Charge Offi Visit 14:11:29 CDT CPT-82360 Magnesium - LAB USE ONLY 10:45:44 CDT CPT-71982 Lipid - LAB USE ONLY 10:45:44 CDT CPT-43926 CBC - LAB USE ONLY 10:45:44 CDT CPT-94389 Venipuncture Draw Fee 10:45:43 CDT CPT-71100 Venipuncture Draw Fee 18:21:27 CDT CPT-JTINJ Asp/Joint Injection 18:38:04 CDT CPT-19469 Immunization Each Additional Inj 17:38:04 CDT CPT-88452 Immunization Single Admin 17:38:04 CDT CPT-72294 Prevnar 13 17:38:04 CDT CPT-33586 Fluzone Quadrivalent preservative free (>=3yrs.) 17:38: 04 CDT CPT-86972 No Charge Offi Visit 11:14:03 CDT CPT-45756 Chest 2V Frontal and Lat 14:00:18 CDT CPT-OV Office Visit 16:10:28 CDT CPT-JTINJ Asp/Joint Injection 09:03:57 CDT CPT-Cryo Cryotherapy 09:35:49 [employer]TRIDGE LOADING OPERATOR CPT-JTINJ Asp/Joint Injection 09:34:45 CARTRIDGE LOADING OPERATOR CPT-J2930 Solu Medrol 125 mg (Methyl Prednisolone Sodium Succinate) 20:37:27 CDT CPT-64127 Abx/Therapy Injection 20:37:27 CDT CPT-02440 Port a cath flush 08:15:51 CDT CPT-73199 Port a cath flush 09:54:16 CDT CPT-03398 Port a cath flush 09:38:02 CDT CPT-54172 Port a cath flush 11:00:27 CARTRIDGE LOADING OPERATOR
--- OUTSIDE RECORDS SUMMARY | 2017-12-29 02:07 | XMS REPORT | Clinical Summary ---
Author Author Admin, QIE Organization [facility] [place] Address Unknown Phone Unavailable Allergies, Adverse Reactions, [...] against streptococcus pneumoniae ( Pneumococcus) V03.82 Resolved Haridner W David DO Need for prophylactic vaccination [...] MG/0.3ML INJ SOAJ 1 INJ NEEDED EPINEPHRINE [id number] Active Tawnya Pardo MA Active PREDNISONE 20 MG TAB 1 tab twice daily for 3 day, then one daily for three days PREDNISONE 78011529670 No Longer Active Harinder Hernandez DO Active PREDNISONE 20 MG TAB 1 tablet twice daily for 2 days, then 1 tablet once daily for 2 days PREDNISONE 73892721881 No Longer Active Harinder Hernandez DO Active ASMANEX 120 METERED DOSES 220 MCG/INH INH AEPB 2 puffs orally twice daily MOMETASONE FUROATE 53540511310 Active Jeri Sosa RPT,RMA Active NIFEDIPINE ER 30 MG ORAL [id number] 1 daily NIFEDIPINE 13938444197 Active Kaylah Newberry Active TOPIRAMATE 25 MG TABS 1 tab po BID TOPIRAMATE 19781840595 No Longer Active Nettie Newberry APRN Active AMLODIPINE BESYLATE 5 MG ORAL TABS Take 1 tab po daily AMLODIPINE BESYLATE 32243149482 No Longer Active Nettie Newberry APRN Active MECLIZINE HCL 25 MG TAB 1 tablet three times daily for 3 days, then 1/2 tab three times daily for 3 days. MECLIZINE HCL 52314529453 No Longer Active Nettie Newberry APRN Active AMITRIPTYLINE HCL 25 MG ORAL TABS 1 q hs prn AMITRIPTYLINE HCL 23465079020 No Longer Active Nettie Newberry APRN Active DILAUDID 2 MG ORAL TABS Take 1/2 tab po every 4 hours as needed for pain 2014 HYDROMORPHONE HCL 87735269872 No Longer Active Nettie Newberry APRN Active CLOPIDOGREL BISULFATE 75 MG ORAL TABS 1 tab by mouth once daily CLOPIDOGREL BISULFATE 55802805207 Active Tawnya Pardo MA Active ATORVASTATIN CALCIUM 10 MG ORAL TABS 1 at bedtime ATORVASTATIN CALCIUM 48051325415 Active Tawnya Pardo MA Active LOVASTATIN 40 MG ORAL TABS Take 1 tab po every hs LOVASTATIN 03062565258 No Longer Active Harinder Hernandez DO Active PREDNISONE 20 MG TAB 2 tabs daily for 4 days, 1 tab daily for 4 days, 1/2 tab daily for 4 days PREDNISONE 39450604122 No Longer Active Harinder Hernandez DO Active LEVAQUIN 500 MG ORAL TABS Take 1 tab po daily x 8 days LEVOFLOXACIN 99574107063 No Longer Active Harinder Hernandez DO Active VENTOLIN HFA 108 (90 BASE) MCG/ACT AERS 2 -4 puffs four times a day PRN 2013 ALBUTEROL SULFATE 48740639266 No Longer Active Jeri Sosa RPT,RMA Active ACEBUTOLOL HCL 200 MG CAPS 1 cap in the morning and 2 caps in the evening ACEBUTOLOL HCL 49087016582 No Longer Active Harinder Hernandez DO Active CEFDINIR 300 MG ORAL CAPS take 1 cap po bid x 10 days CEFDINIR 93928567364 No Longer Active Harinder Hernandez DO Active LOVASTATIN 40 MG TABS 1 pill by mouth nightly for cholesterol LOVASTATIN 43494761685 No Longer Active Nettie Newberry APRN Active NITROSTAT 0.4 MG SUBL 1 tab under tongueas needed for chest pain ( may take 3 total, 5 min apart, then call 911) NITROGLYCERIN 41113385015 No Longer Active Nettie Newberry APRN Active POTASSIUM CHLORIDE CR 10 MEQ CPCR 1 capsule by mouth daily 02/14 POTASSIUM CHLORIDE 40221878596 No Longer Active Nettie Newberry APRN Active TESSALON PERLES 100 MG CAP 1 to 2 tablets by mouth 3 times daily as needed for cough BENZONATATE 54451127315 No Longer Active Nettie Newberry APRN Active THEOPHYLLINE ER 200 MG ORAL [id number] Take 1 tab every 12 hours THEOPHYLLINE 67026579352 Active Tawnya Pardo MA Active PREDNISONE 20 MG TAB 2 po qd x 5 days PREDNISONE 80395927482 No Longer Active Jae Morgan MD Active AZITHROMYCIN 250 MG TABS 2 po qd x 1 day, then 1 po qd x 4 days AZITHROMYCIN 69681239485 No Longer Active Jae Morgan MD Active PREDNISONE 20 MG TAB 1 tab twice daily for 3 day, then one daily for three days PREDNISONE 47140506015 No Longer Active Jae Morgan MD Active SINGULAIR 10 MG TABS 1 pill by mouth every evening for breathing. MONTELUKAST SODIUM 38841229703 Active Tawnya Pardo MA Active TYLENOL 325 MG TAB 3 by mouth q4h as needed ACETAMINOPHEN 27397561291 Active Harinder Hernandez DO Active POTASSIUM CHLORIDE ER 10 MEQ CR-TABS take 1 tab po daily POTASSIUM CHLORIDE 10959546607 No Longer Active Harinder Hernandez DO Active PREDNISONE 20 MG TAB 1 TID x 2 days, then 1 BID x 3 days, then 1 Daily x 3 days, then stop PREDNISONE 15706887923 No Longer Active John Montemayor APRN Active LEVAQUIN 500 MG TAB 1 tablet by mouth daily LEVOFLOXACIN 42410392038 No Longer Active Jillkvng Montemayor APRN Active NEURONTIN 300 MG CAP 1 cap by mouth three times daily for restless leg 06/22 GABAPENTIN 37626131388 No Longer Active Harinder Hernandez DO Active BENZONATATE 100 MG CAPS 1 cap po TID PRN BENZONATATE 82051415755 No Longer Active Harinder Hernandez DO Active MONTELUKAST SODIUM 10 MG TABS 1 tab po in the evening MONTELUKAST SODIUM 32203185955 No Longer Active Harinder Hernandez DO Active MUPIROCIN 2 % OINT apply to affected area BID x 14 days MUPIROCIN 49193980964 No Longer Active Harinder Hernandez DO Active TYLENOL EXTRA STRENGTH 500 MG TABS as needed ACETAMINOPHEN 52972140458 No Longer Active Harinder Hernandez DO Active PREDNISONE 10 MG TABS 1 tab po daily PREDNISONE 16033490704 No Longer Active Harinder Hernandez DO Active PREDNISONE 20 MG TAB 2 tabs daily for 4 days, 1 tab daily for 4 days, 1/2 tab daily for 4 days PREDNISONE 29337894333 No Longer Active Harinder Hernandez DO Active AZITHROMYCIN 250 MG TABS 2 po qd x 1 day, then 1 po qd x 4 days AZITHROMYCIN 59653338446 No Longer Active Harinder Hernandez DO Active PREDNISONE 20 MG TAB 3 tabs today, then 1 tab twice daily for 3 day, then one daily for three days PREDNISONE 72142747248 No Longer Active Harinder Hernandez DO Active NIFEDIAC CC 30 MG [id number] 1 tablet daily for raynaud's syndrome NIFEDIPINE 18391227402 No Longer Active Tawnya Pardo MA Active AMBIEN 10 MG TAB 1/2 tab by mouth at bedtime as needed for sleep ZOLPIDEM TARTRATE 13704851207 Active Harinder Hernandez DO Active CLONAZEPAM 1 MG TABS 1 tablet at bedtime for insomnia and restless legs 09/14 CLONAZEPAM 52188436943 Active Kaylah Newberry Active CLONAZEPAM 0.5 MG TABS 1 tab po daily CLONAZEPAM 97968618390 No Longer Active Harinder Hernandez DO Active PREDNISONE 10 MG TAB 1 tablet daily for COPD PREDNISONE 13603197938 Active Tawnya Pardo MA Active PROAIR HFA 108 (90 BASE) MCG/ACT AERS 2 puffs four times a day as needed 2012 ALBUTEROL SULFATE 15898955505 Active Tawnya Pardo MA Active FLOVENT HFA 110 MCG/ACT AERO 2 puffs inhaled b.i.d. FLUTICASONE PROPIONATE HFA 05132756910 Active Tawnya Pardo MA Active ACIPHEX 20 MG TBEC 1 tab po daily RABEPRAZOLE SODIUM 07787302289 Active Kaylah Newberry Active CLONAZEPAM 0.5 MG TABS 1 tab po daily CLONAZEPAM 0.5 MG TABS 903301 CLONAZEPAM Inactive PREDNISONE 20 MG TAB 3 tabs today, then 1 tab twice daily for 3 day, then one daily for three days PREDNISONE 20 MG TAB 235383 PREDNISONE Inactive PREDNISONE 20 MG TAB 2 tabs daily for 4 days, 1 tab daily for 4 days, 1/2 tab daily for 4 days PREDNISONE 20 MG TAB 791465 PREDNISONE Inactive PREDNISONE 10 MG TABS 1 tab po daily PREDNISONE 10 MG TABS 800430 PREDNISONE Inactive TYLENOL EXTRA STRENGTH 500 MG TABS as needed TYLENOL EXTRA STRENGTH 500 MG TABS 934445 ACETAMINOPHEN Inactive MUPIROCIN 2 % OINT apply to affected area BID x 14 days MUPIROCIN 2 % OINT 078639 MUPIROCIN Inactive MONTELUKAST SODIUM 10 MG TABS 1 tab po in the evening MONTELUKAST SODIUM 10 MG TABS 714706 MONTELUKAST SODIUM Inactive BENZONATATE 100 MG CAPS 1 cap po TID PRN BENZONATATE 100 MG CAPS 635804 BENZONATATE Inactive NEURONTIN 300 MG CAP 1 cap by mouth three times daily for restless leg 06/22 NEURONTIN 300 MG CAP 559405 GABAPENTIN Inactive LEVAQUIN 500 MG TAB 1 tablet by mouth daily LEVAQUIN 500 MG TAB 019164 LEVOFLOXACIN Inactive PREDNISONE 20 MG TAB 1 TID x 2 days, then 1 BID x 3 days, then 1 Daily x 3 days, then stop PREDNISONE 20 MG TAB 132470 PREDNISONE Inactive POTASSIUM CHLORIDE ER 10 MEQ CR-TABS take 1 tab po daily POTASSIUM CHLORIDE ER 10 MEQ CR-TABS POTASSIUM CHLORIDE Inactive PREDNISONE 20 MG TAB 1 tab twice daily for 3 day, then one daily for three days PREDNISONE 20 MG TAB 921051 PREDNISONE Inactive TESSALON PERLES 100 MG CAP 1 to 2 tablets by mouth 3 times daily as needed for cough TESSALON PERLES 100 MG CAP 556127 BENZONATATE Inactive POTASSIUM CHLORIDE CR 10 MEQ CPCR 1 capsule by mouth daily 02/14 POTASSIUM CHLORIDE CR 10 MEQ CPCR POTASSIUM CHLORIDE Inactive NITROSTAT 0.4 MG SUBL 1 tab under tongueas needed for chest pain ( may take 3 total, 5 min apart, then call 911) NITROSTAT 0.4 MG SUBL 542968 NITROGLYCERIN Inactive LOVASTATIN 40 MG TABS 1 pill by mouth nightly for cholesterol LOVASTATIN 40 MG TABS 760832 LOVASTATIN Inactive CEFDINIR 300 MG ORAL CAPS take 1 cap po bid x 10 days CEFDINIR 300 MG ORAL CAPS 376699 CEFDINIR Inactive ACEBUTOLOL HCL 200 MG CAPS 1 cap in the morning and 2 caps in the evening ACEBUTOLOL HCL 200 MG CAPS 659172 ACEBUTOLOL HCL Inactive VENTOLIN HFA 108 (90 BASE) MCG/ACT AERS 2 -4 puffs four times a day PRN 2013 VENTOLIN HFA 108 (90 BASE) MCG/ACT AERS ALBUTEROL SULFATE Inactive LEVAQUIN 500 MG ORAL TABS Take 1 tab po daily x 8 days LEVAQUIN 500 MG ORAL TABS 804142 LEVOFLOXACIN Inactive PREDNISONE 20 MG TAB 2 tabs daily for 4 days, 1 tab daily for 4 days, 1/2 tab daily for 4 days PREDNISONE 20 MG TAB 388005 PREDNISONE Inactive LOVASTATIN 40 MG ORAL TABS Take 1 tab po every hs LOVASTATIN 40 MG ORAL TABS 700297 LOVASTATIN Inactive DILAUDID 2 MG ORAL TABS Take 1/2 tab po every 4 hours as needed for pain 2014 DILAUDID 2 MG ORAL TABS 924343 HYDROMORPHONE HCL Inactive AMITRIPTYLINE HCL 25 MG ORAL TABS 1 q hs prn AMITRIPTYLINE HCL 25 MG ORAL TABS 174813 AMITRIPTYLINE HCL Inactive MECLIZINE HCL 25 MG TAB 1 tablet three times daily for 3 days, then 1/2 tab three times daily for 3 days. MECLIZINE HCL 25 MG TAB 716659 MECLIZINE HCL Inactive AMLODIPINE BESYLATE 5 MG ORAL TABS Take 1 tab po daily AMLODIPINE BESYLATE 5 MG ORAL TABS 716658 AMLODIPINE BESYLATE Inactive TOPIRAMATE 25 MG TABS 1 tab po BID TOPIRAMATE 25 MG TABS 705567 TOPIRAMATE Inactive PREDNISONE 20 MG TAB 1 tablet twice daily for 2 days, then 1 tablet once daily for 2 days PREDNISONE 20 MG TAB 586659 PREDNISONE Inactive PREDNISONE 20 MG TAB 1 tab twice daily for 3 day, then one daily for three days PREDNISONE 20 MG TAB 123117 PREDNISONE Inactive AZITHROMYCIN 250 MG TABS 2 po qd x 1 day, then 1 po qd x 4 days AZITHROMYCIN 250 MG TABS 7566819 AZITHROMYCIN Inactive AZITHROMYCIN 250 MG TABS 2 po qd x 1 day, then 1 po qd x 4 days AZITHROMYCIN 250 MG TABS 1354148 AZITHROMYCIN Inactive PREDNISONE 20 MG TAB 2 po qd x 5 days PREDNISONE 20 MG TAB 898749 PREDNISONE Inactive Vital Signs Date Name Value [...] Magnesium - Chemistry cholesterol, serum 180 mg/dL 768-768 3486/08/08 triglyceride, serum, fasting 92 mg/dL 30-200 HDL cholesterol, serum 66 mg/dL 32-96 LDL cholesterol, serum 96 mg/dL 0-130 sodium, serum 142 mmol/L 947-462 8955/08/08 carbon dioxide, venous blood 27.4 mmol/L 21.0-32.0 [...] 10.0-20.0 Encounters Code Encounter Date Provider Facility CPT-78377 Level 3 Est. Patient 09:58:58 CDT Harinder Cr [facility] CPT-20656 Level 3 Est. Patient 12:37:21 CDT Harinder Cr [facility] CPT-64583 Level 3 Est. Patient 18:37:17 CDT Harinder Cr [facility] CPT-77555 Level 4 Est. Patient 11:15:54 CDT Nettie Newberry ORDER ENTRY [facility] CPT-90738 Level 3 Est. Patient 16:42:24 CDT Harinder Cr [facility] CPT-12804 Level 3 Est. Patient 15:03:36 CDT Harinder W [facility] CPT-53000 Level 3 Est. Patient 15:03:20 CDT Harinder Hernandez [facility] CPT-93042 Level 3 Est. Patient 12:14:34 CDT Harinder Hernandez [facility] CPT-64302 Level 3 Est. Patient 13:47:15 CDT Harinder Hernandez [facility] CPT-90936 Level 3 Est. Patient 14:08:24 CDT Harinder Hernandez [facility] CPT-58308 Level 3 Est. Patient 10:07:15 CDT Harinder Hernandez [facility] CPT-21552 Level 3 Est. Patient 10:06:59 CDT Harinder Hernandez [facility] CPT-49970 Level 3 Est. Patient 15:53:29 CDT Jae Morgan MD [facility] CPT-17531 Level 3 Est. Patient 17:19:04 CDT Harinder Hernandez [facility] CPT-99915 Level 3 Est. Patient 11:13:01 CDT Harinder Hernandez [facility] CPT-26861 Level 3 Est. Patient 09:03:58 CDT Harinder Hernandez [facility] CPT-50784 Level 3 Est. Patient 14:46:45 PSYCH NP Harinder Hernandez [facility] CPT-06708 Level 3 Est. Patient 09:35:49 PSYCH NP Harinder Hernandez [facility] CPT-18841 Level 3 Est. Patient 09:29:37 PSYCH NP Harinder Hernandez [facility] CPT-67765 Level 3 Est. Patient 15:51:07 CDT Harinder Hernandez [facility] CPT-56851 Level 3 Est. Patient 18:13:13 CDT Harinder Cr [facility] CPT-76184 Level 3 Est. Patient 10:44:19 CDT Harinder Hernandez [facility] CPT-79320 Level 4 Est. Patient 10:07:19 PSYCH NP Harinder Hernandez [facility] CPT-54429 Level 3 Est. Patient 15:59:32 PSYCH NP Harinder Hernandez [facility] Procedures Code Procedure Name Date Entry Date Standard Description CPT-95392 First Vx - Ix admin for Medicare patients 17:35:15 CDT CPT-88228 Fluzone Preservative Free Intramuscular Suspension 17:35 :15 CDT CPT-89334 Microalbumin - LAB USE ONLY 11:52:05 CDT CPT-TCMM Transitional Care Mgmt-Moderate 11:33:57 CDT CPT-64030 No Charge Offi Visit 14:11:29 CDT CPT-20689 Magnesium - LAB USE ONLY 10:45:44 CDT CPT-34099 Lipid - LAB USE ONLY 10:45:44 CDT CPT-62345 CBC - LAB USE ONLY 10:45:44 CDT CPT-06958 Venipuncture Draw Fee 10:45:43 CDT CPT-40007 Venipuncture Draw Fee 18:21:27 CDT CPT-JTINJ Asp/Joint Injection 18:38:04 CDT CPT-12342 Immunization Each Additional Inj 17:38:04 CDT CPT-73873 Immunization Single Admin 17:38:04 CDT CPT-26704 Prevnar 13 17:38:04 CDT CPT-03894 Fluzone Quadrivalent preservative free (>=3yrs.) 17:38: 04 CDT CPT-04934 No Charge Offi Visit 11:14:03 CDT CPT-42371 Chest 2V Frontal and Lat 14:00:18 CDT CPT-OV Office Visit 16:10:28 CDT CPT-JTINJ Asp/Joint Injection 09:03:57 CDT CPT-Cryo Cryotherapy 09:35:49 PSYCH NP CPT-JTINJ Asp/Joint Injection 09:34:45 PSYCH NP CPT-J2930 Solu Medrol 125 mg (Methyl Prednisolone Sodium Succinate) 20:37:27 CDT CPT-64967 Abx/Therapy Injection 20:37:27 CDT CPT-02504 Port a cath flush 08:15:51 CDT CPT-53988 Port a cath flush 09:54:16 CDT CPT-14386 Port a cath flush 09:38:02 CDT CPT-01483 Port a cath flush 11:00:27 PSYCH NP
--- OUTSIDE RECORDS SUMMARY | 2017-12-29 02:09 | XMS REPORT | Clinical Summary ---
Author Author Admin, QIE Organization [facility] [employer] Address Unknown Phone Unavailable Allergies, Adverse Reactions, [...] MG/0.3ML INJ SOAJ 1 INJ NEEDED EPINEPHRINE 72899702848 Active Tawnya Pardo MA Active PREDNISONE 20 MG TAB 1 tab twice daily for 3 day, then one daily for three days PREDNISONE 10155369867 No Longer Active Harinder Hernandez DO Active PREDNISONE 20 MG TAB 1 tablet twice daily for 2 days, then 1 tablet once daily for 2 days PREDNISONE 44041235314 No Longer Active Harinder Hernandez DO Active ASMANEX 120 METERED DOSES 220 MCG/INH INH AEPB 2 puffs orally twice daily MOMETASONE FUROATE 70561858906 Active Jeri Sosa RPT,RMA Active NIFEDIPINE ER 30 MG ORAL [id number] 1 daily NIFEDIPINE 75863778778 Active Kaylah Newberry Active TOPIRAMATE 25 MG TABS 1 tab po BID TOPIRAMATE 54949737565 No Longer Active Nettie Newberry APRN Active AMLODIPINE BESYLATE 5 MG ORAL TABS Take 1 tab po daily AMLODIPINE BESYLATE 92753490809 No Longer Active Nettie Newberry APRN Active MECLIZINE HCL 25 MG TAB 1 tablet three times daily for 3 days, then 1/2 tab three times daily for 3 days. MECLIZINE HCL 82738512483 No Longer Active Nettie Newberry APRN Active AMITRIPTYLINE HCL 25 MG ORAL TABS 1 q hs prn AMITRIPTYLINE HCL 31890307425 No Longer Active Nettie Newberry APRN Active DILAUDID 2 MG ORAL TABS Take 1/2 tab po every 4 hours as needed for pain 2014 HYDROMORPHONE HCL 14662053850 No Longer Active Nettie Newberry APRN Active CLOPIDOGREL BISULFATE 75 MG ORAL TABS 1 tab by mouth once daily CLOPIDOGREL BISULFATE 55322380686 Active Tawnya Pardo MA Active ATORVASTATIN CALCIUM 10 MG ORAL TABS 1 at bedtime ATORVASTATIN CALCIUM 80251485905 Active Tawnya Pardo MA Active LOVASTATIN 40 MG ORAL TABS Take 1 tab po every hs LOVASTATIN 53793819081 No Longer Active Harinder Hernandez DO Active PREDNISONE 20 MG TAB 2 tabs daily for 4 days, 1 tab daily for 4 days, 1/2 tab daily for 4 days PREDNISONE 63373476618 No Longer Active Harinder Hernandez DO Active LEVAQUIN 500 MG ORAL TABS Take 1 tab po daily x 8 days LEVOFLOXACIN 71394502900 No Longer Active Harinder Hernandez DO Active VENTOLIN HFA 108 (90 BASE) MCG/ACT AERS 2 -4 puffs four times a day PRN 2013 ALBUTEROL SULFATE 05850156311 No Longer Active Jeri Sosa RPT,RMA Active ACEBUTOLOL HCL 200 MG CAPS 1 cap in the morning and 2 caps in the evening ACEBUTOLOL HCL 07050144178 No Longer Active Harinder Hernandez DO Active CEFDINIR 300 MG ORAL CAPS take 1 cap po bid x 10 days CEFDINIR 18930296428 No Longer Active Harinder Hernandez DO Active LOVASTATIN 40 MG TABS 1 pill by mouth nightly for cholesterol LOVASTATIN 32131981411 No Longer Active Nettie Newberry APRN Active NITROSTAT 0.4 MG SUBL 1 tab under tongueas needed for chest pain ( may take 3 total, 5 min apart, then call 911) NITROGLYCERIN 97394028987 No Longer Active Nettie Newberry APRN Active POTASSIUM CHLORIDE CR 10 MEQ CPCR 1 capsule by mouth daily 02/14 POTASSIUM CHLORIDE 35206500502 No Longer Active Nettie Newberry APRN Active TESSALON PERLES 100 MG CAP 1 to 2 tablets by mouth 3 times daily as needed for cough BENZONATATE 26089583672 No Longer Active Nettie Newberry APRN Active THEOPHYLLINE ER 200 MG ORAL [id number] Take 1 tab every 12 hours THEOPHYLLINE 03453128986 Active Tawnya Pardo MA Active PREDNISONE 20 MG TAB 2 po qd x 5 days PREDNISONE 86223860490 No Longer Active Jae Morgan MD Active AZITHROMYCIN 250 MG TABS 2 po qd x 1 day, then 1 po qd x 4 days AZITHROMYCIN 21562300024 No Longer Active aJe Morgan MD Active PREDNISONE 20 MG TAB 1 tab twice daily for 3 day, then one daily for three days PREDNISONE 77144699978 No Longer Active Jae Morgan MD Active SINGULAIR 10 MG TABS 1 pill by mouth every evening for breathing. MONTELUKAST SODIUM 46038379379 Active Tawnya Pardo MA Active TYLENOL 325 MG TAB 3 by mouth q4h as needed ACETAMINOPHEN 52245958794 Active Harinder Hernandez DO Active POTASSIUM CHLORIDE ER 10 MEQ CR-TABS take 1 tab po daily POTASSIUM CHLORIDE 81562442567 No Longer Active Harinder Hernandez DO Active PREDNISONE 20 MG TAB 1 TID x 2 days, then 1 BID x 3 days, then 1 Daily x 3 days, then stop PREDNISONE 09325615923 No Longer Active John Montemayor APRN Active LEVAQUIN 500 MG TAB 1 tablet by mouth daily LEVOFLOXACIN 16568403153 No Longer Active Jillkvng Montemayor APRN Active NEURONTIN 300 MG CAP 1 cap by mouth three times daily for restless leg 06/22 GABAPENTIN 26946904346 No Longer Active Harinder Hernandez DO Active BENZONATATE 100 MG CAPS 1 cap po TID PRN BENZONATATE 22917889141 No Longer Active Harinder Hernandez DO Active MONTELUKAST SODIUM 10 MG TABS 1 tab po in the evening MONTELUKAST SODIUM 05510343489 No Longer Active Harinder Hernandez DO Active MUPIROCIN 2 % OINT apply to affected area BID x 14 days MUPIROCIN 23485139562 No Longer Active Harinder Hernandez DO Active TYLENOL EXTRA STRENGTH 500 MG TABS as needed ACETAMINOPHEN 81038296216 No Longer Active Harinder Hernandez DO Active PREDNISONE 10 MG TABS 1 tab po daily PREDNISONE 87587789784 No Longer Active Harinder Hernandez DO Active PREDNISONE 20 MG TAB 2 tabs daily for 4 days, 1 tab daily for 4 days, 1/2 tab daily for 4 days PREDNISONE 52930310403 No Longer Active Harinder Hernandez DO Active AZITHROMYCIN 250 MG TABS 2 po qd x 1 day, then 1 po qd x 4 days AZITHROMYCIN 40163267034 No Longer Active Harinder Hernandez DO Active PREDNISONE 20 MG TAB 3 tabs today, then 1 tab twice daily for 3 day, then one daily for three days PREDNISONE 54251552715 No Longer Active Harinder Hernandez DO Active NIFEDIAC CC 30 MG [id number] 1 tablet daily for raynaud's syndrome NIFEDIPINE 35929780518 No Longer Active Tawnya Pardo MA Active AMBIEN 10 MG TAB 1/2 tab by mouth at bedtime as needed for sleep ZOLPIDEM TARTRATE 85453177249 Active Harinder Hernandez DO Active CLONAZEPAM 1 MG TABS 1 tablet at bedtime for insomnia and restless legs 09/14 CLONAZEPAM 26349602829 Active Harinder Hernandez DO Active CLONAZEPAM 0.5 MG TABS 1 tab po daily CLONAZEPAM 67384066985 No Longer Active Harinder Hernandez DO Active PREDNISONE 10 MG TAB 1 tablet daily for COPD PREDNISONE 97071537286 Active Tawnya Pardo MA Active PROAIR HFA 108 (90 BASE) MCG/ACT AERS 2 puffs four times a day as needed 2012 ALBUTEROL SULFATE 74099098108 Active Tawnya Pardo MA Active FLOVENT HFA 110 MCG/ACT AERO 2 puffs inhaled b.i.d. FLUTICASONE PROPIONATE HFA 03990964399 Active Tawnya Pardo MA Active ACIPHEX 20 MG TBEC 1 tab po daily RABEPRAZOLE SODIUM 05107696689 Active Kaylah Newberry Active CLONAZEPAM 0.5 MG TABS 1 tab po daily CLONAZEPAM 0.5 MG TABS 258411 CLONAZEPAM Inactive PREDNISONE 20 MG TAB 3 tabs today, then 1 tab twice daily for 3 day, then one daily for three days PREDNISONE 20 MG TAB 046088 PREDNISONE Inactive PREDNISONE 20 MG TAB 2 tabs daily for 4 days, 1 tab daily for 4 days, 1/2 tab daily for 4 days PREDNISONE 20 MG TAB 527132 PREDNISONE Inactive PREDNISONE 10 MG TABS 1 tab po daily PREDNISONE 10 MG TABS 326878 PREDNISONE Inactive TYLENOL EXTRA STRENGTH 500 MG TABS as needed TYLENOL EXTRA STRENGTH 500 MG TABS 097185 ACETAMINOPHEN Inactive MUPIROCIN 2 % OINT apply to affected area BID x 14 days MUPIROCIN 2 % OINT 374215 MUPIROCIN Inactive MONTELUKAST SODIUM 10 MG TABS 1 tab po in the evening MONTELUKAST SODIUM 10 MG TABS 819421 MONTELUKAST SODIUM Inactive BENZONATATE 100 MG CAPS 1 cap po TID PRN BENZONATATE 100 MG CAPS 161945 BENZONATATE Inactive NEURONTIN 300 MG CAP 1 cap by mouth three times daily for restless leg 06/22 NEURONTIN 300 MG CAP 012343 GABAPENTIN Inactive LEVAQUIN 500 MG TAB 1 tablet by mouth daily LEVAQUIN 500 MG TAB 931520 LEVOFLOXACIN Inactive PREDNISONE 20 MG TAB 1 TID x 2 days, then 1 BID x 3 days, then 1 Daily x 3 days, then stop PREDNISONE 20 MG TAB 290938 PREDNISONE Inactive POTASSIUM CHLORIDE ER 10 MEQ CR-TABS take 1 tab po daily POTASSIUM CHLORIDE ER 10 MEQ CR-TABS POTASSIUM CHLORIDE Inactive PREDNISONE 20 MG TAB 1 tab twice daily for 3 day, then one daily for three days PREDNISONE 20 MG TAB 413130 PREDNISONE Inactive TESSALON PERLES 100 MG CAP 1 to 2 tablets by mouth 3 times daily as needed for cough TESSALON PERLES 100 MG CAP 842320 BENZONATATE Inactive POTASSIUM CHLORIDE CR 10 MEQ CPCR 1 capsule by mouth daily 02/14 POTASSIUM CHLORIDE CR 10 MEQ CPCR POTASSIUM CHLORIDE Inactive NITROSTAT 0.4 MG SUBL 1 tab under tongueas needed for chest pain ( may take 3 total, 5 min apart, then call 911) NITROSTAT 0.4 MG SUBL 775643 NITROGLYCERIN Inactive LOVASTATIN 40 MG TABS 1 pill by mouth nightly for cholesterol LOVASTATIN 40 MG TABS 227583 LOVASTATIN Inactive CEFDINIR 300 MG ORAL CAPS take 1 cap po bid x 10 days CEFDINIR 300 MG ORAL CAPS 314760 CEFDINIR Inactive ACEBUTOLOL HCL 200 MG CAPS 1 cap in the morning and 2 caps in the evening ACEBUTOLOL HCL 200 MG CAPS 686242 ACEBUTOLOL HCL Inactive VENTOLIN HFA 108 (90 BASE) MCG/ACT AERS 2 -4 puffs four times a day PRN 2013 VENTOLIN HFA 108 (90 BASE) MCG/ACT AERS ALBUTEROL SULFATE Inactive LEVAQUIN 500 MG ORAL TABS Take 1 tab po daily x 8 days LEVAQUIN 500 MG ORAL TABS 178542 LEVOFLOXACIN Inactive PREDNISONE 20 MG TAB 2 tabs daily for 4 days, 1 tab daily for 4 days, 1/2 tab daily for 4 days PREDNISONE 20 MG TAB 303144 PREDNISONE Inactive LOVASTATIN 40 MG ORAL TABS Take 1 tab po every hs LOVASTATIN 40 MG ORAL TABS 882204 LOVASTATIN Inactive DILAUDID 2 MG ORAL TABS Take 1/2 tab po every 4 hours as needed for pain 2014 DILAUDID 2 MG ORAL TABS 392233 HYDROMORPHONE HCL Inactive AMITRIPTYLINE HCL 25 MG ORAL TABS 1 q hs prn AMITRIPTYLINE HCL 25 MG ORAL TABS 795936 AMITRIPTYLINE HCL Inactive MECLIZINE HCL 25 MG TAB 1 tablet three times daily for 3 days, then 1/2 tab three times daily for 3 days. MECLIZINE HCL 25 MG TAB 774436 MECLIZINE HCL Inactive AMLODIPINE BESYLATE 5 MG ORAL TABS Take 1 tab po daily AMLODIPINE BESYLATE 5 MG ORAL TABS 558130 AMLODIPINE BESYLATE Inactive TOPIRAMATE 25 MG TABS 1 tab po BID TOPIRAMATE 25 MG TABS 176945 TOPIRAMATE Inactive PREDNISONE 20 MG TAB 1 tablet twice daily for 2 days, then 1 tablet once daily for 2 days PREDNISONE 20 MG TAB 224048 PREDNISONE Inactive PREDNISONE 20 MG TAB 1 tab twice daily for 3 day, then one daily for three days PREDNISONE 20 MG TAB 919469 PREDNISONE Inactive AZITHROMYCIN 250 MG TABS 2 po qd x 1 day, then 1 po qd x 4 days AZITHROMYCIN 250 MG TABS 7841438 AZITHROMYCIN Inactive AZITHROMYCIN 250 MG TABS 2 po qd x 1 day, then 1 po qd x 4 days AZITHROMYCIN 250 MG TABS 4141957 AZITHROMYCIN Inactive PREDNISONE 20 MG TAB 2 po qd x 5 days PREDNISONE 20 MG TAB 658437 PREDNISONE Inactive Vital Signs Date Name Value [...] Magnesium - Chemistry cholesterol, serum 180 mg/dL 125-348 4106/08/08 triglyceride, serum, fasting 92 mg/dL 30-200 HDL cholesterol, serum 66 mg/dL 32-96 LDL cholesterol, serum 96 mg/dL 0-130 sodium, serum 142 mmol/L 403-554 1184/08/08 carbon dioxide, venous blood 27.4 mmol/L 21.0-32.0 [...] 10.0-20.0 Encounters Code Encounter Date Provider Facility CPT-89771 Level 3 Est. Patient 09:58:58 CDT Harinder Cr [facility] CPT-63899 Level 3 Est. Patient 12:37:21 CDT Harinder Cr [facility] CPT-65667 Level 3 Est. Patient 18:37:17 CDT Harinder Cr [facility] CPT-39033 Level 4 Est. Patient 11:15:54 CDT Nettie Newberry Formerly named [facility] CPT-71602 Level 3 Est. Patient 16:42:24 CDT Harinder Cr [facility] CPT-35443 Level 3 Est. Patient 15:03:36 CDT Harinder W [facility] CPT-42722 Level 3 Est. Patient 15:03:20 CDT Harinder Hernandez [facility] CPT-19444 Level 3 Est. Patient 12:14:34 CDT Harinder Hernandez [facility] CPT-99400 Level 3 Est. Patient 13:47:15 CDT Harinder Hernandez [facility] CPT-71266 Level 3 Est. Patient 14:08:24 CDT Harinder Hernandez [facility] CPT-75150 Level 3 Est. Patient 10:07:15 CDT Harinder Hernandez [facility] CPT-28341 Level 3 Est. Patient 10:06:59 CDT Harinder Hernandez [facility] CPT-61954 Level 3 Est. Patient 15:53:29 CDT Jae Morgan MD [facility] CPT-36747 Level 3 Est. Patient 17:19:04 CDT Harinder Hernandez [facility] CPT-08666 Level 3 Est. Patient 11:13:01 CDT Harinder Hernandez [facility] CPT-64654 Level 3 Est. Patient 09:03:58 CDT Harinder Hernandez [facility] CPT-52943 Level 3 Est. 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 Patient 09:29:37 BLOCK BOLTER MULE OPERATOR Harinder Hernandez [facility] CPT-82693 Level 3 Est. Patient 15:51:07 CDT Harinder Hernandez [facility] CPT-35274 Level 3 Est. Patient 18:13:13 CDT Harinder Cr [facility] CPT-88434 Level 3 Est. Patient 10:44:19 CDT Harinder Hernandez [facility] CPT-43775 Level 4 Est. 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 MULE OPERATOR Harinder Hernandez [facility] Procedures Code Procedure Name Date Entry Date Standard Description CPT-41541 First Vx - Ix admin for Medicare patients 17:35:15 CDT CPT-87097 Fluzone Preservative Free Intramuscular Suspension 17:35 :15 CDT CPT-53154 Microalbumin - LAB USE ONLY 11:52:05 CDT CPT-TCMM Transitional Care Mgmt-Moderate 11:33:57 CDT CPT-42113 No Charge Offi Visit 14:11:29 CDT CPT-41632 Magnesium - LAB USE ONLY 10:45:44 CDT CPT-25702 Lipid - LAB USE ONLY 10:45:44 CDT CPT-65752 CBC - LAB USE ONLY 10:45:44 CDT CPT-42807 Venipuncture Draw Fee 10:45:43 CDT CPT-58487 Venipuncture Draw Fee 18:21:27 CDT CPT-JTINJ Asp/Joint Injection 18:38:04 CDT CPT-11264 Immunization Each Additional Inj 17:38:04 CDT CPT-78608 Immunization Single Admin 17:38:04 CDT CPT-40524 Prevnar 13 17:38:04 CDT CPT-65897 Fluzone Quadrivalent preservative free (>=3yrs.) 17:38: 04 CDT CPT-57211 No Charge Offi Visit 11:14:03 CDT CPT-66775 Chest 2V Frontal and Lat 14:00:18 CDT CPT-OV Office Visit 16:10:28 CDT CPT-JTINJ Asp/Joint Injection 09:03:57 CDT CPT-Cryo Cryotherapy 09:35:49 BLOCK BOLTER MULE OPERATOR CPT-JTINJ Asp/Joint Injection 09:34:45 BLOCK BOLTER MULE OPERATOR CPT-J2930 Solu Medrol 125 mg (Methyl Prednisolone Sodium Succinate) 20:37:27 CDT CPT-71809 Abx/Therapy Injection 20:37:27 CDT CPT-68665 Port a cath flush 08:15:51 CDT CPT-28888 Port a cath flush 09:54:16 CDT CPT-24741 Port a cath flush 09:38:02 CDT CPT-04193 Port a cath flush 11:00:27 BLOCK BOLTER MULE OPERATOR
--- OUTSIDE RECORDS SUMMARY | 2017-12-29 02:10 | XMS REPORT | Clinical Summary ---
Author Author Admin, QIE Organization [facility] Address Unknown Phone Unavailable Allergies, Adverse Reactions, [...] for influenza ICD-V04.81 Inactive Harinder Shaye David Need for prophylactic vaccination against streptococcus pneumoniae ( Pneumococcus) ICD-V03.82 Inactive Harinder Hernandez DO Greater trochanteric bursitis, left ICD-726.5 Inactive Harinder Hernandez DO Medication List Medication Instructions Start Date Stop Date Generic Name NDC Status Provider Patient Instruction LASIX 20 MG TAB 1 tablet by mouth every morning FUROSEMIDE [id number] Active Kortney Mccain Active POTASSIUM CHLORIDE 20 MEQ ORAL PACK 1 tab po BID POTASSIUM CHLORIDE 97581809688 Active Kortney Mccain Active ALBUTEROL SULFATE 0.083 % NEBU SOLN 1 vial neb q 4hrs for severe asthma. 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 FLUTICASONE PROPIONATE HFA 00932263475 Active Harinder Hernandez DO Active POTASSIUM CHLORIDE CR 10 MEQ CPCR 1 capsule by mouth daily POTASSIUM CHLORIDE 79363677350 Active Harinder Hernandez DO Active EPIPEN 2-BRUNA 0.3 MG/0.3ML INJ SOAJ 1 INJ NEEDED EPINEPHRINE 57028372627 Active Harinder Hernandez DO Active PREDNISONE 20 MG TAB 1 tab twice daily for 3 day, then one daily for three days PREDNISONE 63263321221 No Longer Active Harinder Hernandez DO Active PREDNISONE 20 MG TAB 1 tablet twice daily for 2 days, then 1 tablet once daily for 2 days PREDNISONE 99554307362 No Longer Active Harinder Hernandez DO Active ASMANEX 120 METERED DOSES 220 MCG/INH INH AEPB 2 puffs orally twice daily MOMETASONE FUROATE 47871471220 Active Jeri Sosa RPT,RMA Active TOPIRAMATE 25 MG TABS 1 tab po BID TOPIRAMATE 45767984418 No Longer Active Nettie Newberry APRN Active AMLODIPINE BESYLATE 5 MG ORAL TABS Take 1 tab po daily AMLODIPINE BESYLATE 95598718522 No Longer Active Nettie Newberry APRN Active MECLIZINE HCL 25 MG TAB 1 tablet three times daily for 3 days, then 1/2 tab three times daily for 3 days. MECLIZINE HCL 94341310162 No Longer Active Nettie Newberry APRN Active AMITRIPTYLINE HCL 25 MG ORAL TABS 1 q hs prn AMITRIPTYLINE HCL 74200837848 No Longer Active Nettie Newberry APRN Active DILAUDID 2 MG ORAL TABS Take 1/2 tab po every 4 hours as needed for pain 2014 HYDROMORPHONE HCL 54241890718 No Longer Active Nettie Newberry APRN Active CLOPIDOGREL BISULFATE 75 MG ORAL TABS 1 tab by mouth once daily CLOPIDOGREL BISULFATE 95293345968 Active Harinder Hernandez DO Active ATORVASTATIN CALCIUM 10 MG ORAL TABS 1 at bedtime ATORVASTATIN CALCIUM 13366062127 Active Tawnya Pardo MA Active LOVASTATIN 40 MG ORAL TABS Take 1 tab po every hs LOVASTATIN 22266039503 No Longer Active Harinder Hernandez DO Active PREDNISONE 20 MG TAB 2 tabs daily for 4 days, 1 tab daily for 4 days, 1/2 tab daily for 4 days PREDNISONE 75958941368 No Longer Active Harinder Hernandez DO Active LEVAQUIN 500 MG ORAL TABS Take 1 tab po daily x 8 days LEVOFLOXACIN 26643779666 No Longer Active Harinder Hernandez DO Active VENTOLIN HFA 108 (90 BASE) MCG/ACT AERS 2 -4 puffs four times a day PRN 2013 ALBUTEROL SULFATE 53820643041 No Longer Active Jeri Sosa RPT,RMA Active ACEBUTOLOL HCL 200 MG CAPS 1 cap in the morning and 2 caps in the evening ACEBUTOLOL HCL 94982778439 No Longer Active Harinder Hernandez DO Active CEFDINIR 300 MG ORAL CAPS take 1 cap po bid x 10 days CEFDINIR 37560725500 No Longer Active Harinder Hernandez DO Active LOVASTATIN 40 MG TABS 1 pill by mouth nightly for cholesterol LOVASTATIN 88113273141 No Longer Active Nettie Newberry APRN Active NITROSTAT 0.4 MG SUBL 1 tab under tongueas needed for chest pain ( may take 3 total, 5 min apart, then call 911) NITROGLYCERIN 08211025149 No Longer Active Nettie Newberry APRN Active POTASSIUM CHLORIDE CR 10 MEQ CPCR 1 capsule by mouth daily 02/14 POTASSIUM CHLORIDE 56179368948 No Longer Active Nettie Newberry APRN Active TESSALON PERLES 100 MG CAP 1 to 2 tablets by mouth 3 times daily as needed for cough BENZONATATE 43859485884 No Longer Active Nettie Newberry APRN Active THEOPHYLLINE ER 200 MG ORAL [id number] Take 1 tab every 12 hours THEOPHYLLINE 42883071700 Active Kortney Mccain Active PREDNISONE 20 MG TAB 2 po qd x 5 days PREDNISONE 57409721448 No Longer Active Jea Morgan MD Active AZITHROMYCIN 250 MG TABS 2 po qd x 1 day, then 1 po qd x 4 days AZITHROMYCIN 52154003860 No Longer Active Jae Morgan MD Active PREDNISONE 20 MG TAB 1 tab twice daily for 3 day, then one daily for three days PREDNISONE 33331099784 No Longer Active Jae Morgan MD Active SINGULAIR 10 MG TABS 1 pill by mouth every evening for breathing. MONTELUKAST SODIUM 86902098554 Active Tawnya Pardo MA Active TYLENOL 325 MG TAB 3 by mouth q4h as needed ACETAMINOPHEN 73753293871 Active Harinder Hernandez DO Active POTASSIUM CHLORIDE ER 10 MEQ CR-TABS take 1 tab po daily POTASSIUM CHLORIDE 22322844948 No Longer Active Harinder Hernandez DO Active PREDNISONE 20 MG TAB 1 TID x 2 days, then 1 BID x 3 days, then 1 Daily x 3 days, then stop PREDNISONE 52083540123 No Longer Active Jillina Frazell NIGHT NURSE Active LEVAQUIN 500 MG TAB 1 tablet by mouth daily LEVOFLOXACIN 10757645493 No Longer Active Jillina Frazell NIGHT NURSE Active NEURONTIN 300 MG CAP 1 cap by mouth three times daily for restless leg 06/22 GABAPENTIN 51049212083 No Longer Active Harinder Hernandez DO Active BENZONATATE 100 MG CAPS 1 cap po TID PRN BENZONATATE 26217536840 No Longer Active Harinder Hernandez DO Active MONTELUKAST SODIUM 10 MG TABS 1 tab po in the evening MONTELUKAST SODIUM 49790777157 No Longer Active Harinder Hernandez DO Active MUPIROCIN 2 % OINT apply to affected area BID x 14 days MUPIROCIN 47620963307 No Longer Active Harinder Hernandez DO Active TYLENOL EXTRA STRENGTH 500 MG TABS as needed ACETAMINOPHEN 08223356788 No Longer Active Harinder W David DO Active PREDNISONE 10 MG TABS 1 tab po daily PREDNISONE 28910827265 No Longer Active Harinder Hernandez DO Active PREDNISONE 20 MG TAB 2 tabs daily for 4 days, 1 tab daily for 4 days, 1/2 tab daily for 4 days PREDNISONE 09927717689 No Longer Active Harinder Hernandez DO Active AZITHROMYCIN 250 MG TABS 2 po qd x 1 day, then 1 po qd x 4 days AZITHROMYCIN 02276725008 No Longer Active Harinder Hernandez DO Active PREDNISONE 20 MG TAB 3 tabs today, then 1 tab twice daily for 3 day, then one daily for three days PREDNISONE 27105487624 No Longer Active Harinder Hernandez DO Active NIFEDIAC CC 30 MG [id number] 1 tablet daily for raynaud's syndrome NIFEDIPINE 89268118971 No Longer Active Tawnya Pardo MA Active AMBIEN 10 MG TAB 1/2 tab by mouth at bedtime as needed for sleep ZOLPIDEM TARTRATE 55816514360 Active Ciera Pimentel Active CLONAZEPAM 1 MG TABS 1 tablet at bedtime for insomnia and restless legs 09/14 CLONAZEPAM 56031049216 Active Harinder Hernandez DO Active CLONAZEPAM 0.5 MG TABS 1 tab po daily CLONAZEPAM 69341341028 No Longer Active Harinder Hernandez DO Active PREDNISONE 10 MG TAB 1 tablet daily for COPD PREDNISONE 33566858676 Active Ciera Pimentel Active PROAIR HFA 108 (90 BASE) MCG/ACT AERS 2 puffs four times a day as needed 2012 ALBUTEROL SULFATE 29646495653 Active Harinder Hernandez DO Active FLOVENT HFA 110 MCG/ACT AERO 2 puffs inhaled b.i.d. FLUTICASONE PROPIONATE HFA 38023603085 Active Kortney Mccain Active ACIPHEX 20 MG TBEC 1 tab po daily RABEPRAZOLE SODIUM 84375215243 Active Kaylah Newberry Active CLONAZEPAM 0.5 MG TABS 1 tab po daily CLONAZEPAM 0.5 MG TABS 791459 CLONAZEPAM Inactive PREDNISONE 20 MG TAB 3 tabs today, then 1 tab twice daily for 3 day, then one daily for three days PREDNISONE 20 MG TAB 820583 PREDNISONE Inactive PREDNISONE 20 MG TAB 2 tabs daily for 4 days, 1 tab daily for 4 days, 1/2 tab daily for 4 days PREDNISONE 20 MG TAB 873114 PREDNISONE Inactive PREDNISONE 10 MG TABS 1 tab po daily PREDNISONE 10 MG TABS 786614 PREDNISONE Inactive TYLENOL EXTRA STRENGTH 500 MG TABS as needed TYLENOL EXTRA STRENGTH 500 MG TABS 607949 ACETAMINOPHEN Inactive MUPIROCIN 2 % OINT apply to affected area BID x 14 days MUPIROCIN 2 % OINT 855244 MUPIROCIN Inactive MONTELUKAST SODIUM 10 MG TABS 1 tab po in the evening MONTELUKAST SODIUM 10 MG TABS 20010818 MONTELUKAST SODIUM Inactive BENZONATATE 100 MG CAPS 1 cap po TID PRN BENZONATATE 100 MG CAPS 095376 BENZONATATE Inactive NEURONTIN 300 MG CAP 1 cap by mouth three times daily for restless leg 06/22 NEURONTIN 300 MG CAP 297078 GABAPENTIN Inactive LEVAQUIN 500 MG TAB 1 tablet by mouth daily LEVAQUIN 500 MG TAB 276017 LEVOFLOXACIN Inactive PREDNISONE 20 MG TAB 1 TID x 2 days, then 1 BID x 3 days, then 1 Daily x 3 days, then stop PREDNISONE 20 MG TAB 744460 PREDNISONE Inactive POTASSIUM CHLORIDE ER 10 MEQ CR-TABS take 1 tab po daily POTASSIUM CHLORIDE ER 10 MEQ CR-TABS POTASSIUM CHLORIDE Inactive PREDNISONE 20 MG TAB 1 tab twice daily for 3 day, then one daily for three days PREDNISONE 20 MG TAB 519090 PREDNISONE Inactive TESSALON PERLES 100 MG CAP [...] then call 911) NITROSTAT 0.4 MG SUBL 234399 NITROGLYCERIN Inactive LOVASTATIN 40 MG TABS 1 pill by mouth nightly for cholesterol LOVASTATIN 40 MG TABS 749109 LOVASTATIN Inactive CEFDINIR 300 MG ORAL CAPS take 1 cap po bid x 10 days CEFDINIR 300 MG ORAL CAPS 773402 CEFDINIR Inactive ACEBUTOLOL HCL 200 MG CAPS 1 cap in the morning and 2 caps in the evening ACEBUTOLOL HCL 200 MG CAPS 685643 ACEBUTOLOL HCL Inactive VENTOLIN HFA 108 (90 BASE) MCG/ACT AERS 2 -4 puffs four times a day PRN 2013 VENTOLIN HFA 108 (90 BASE) MCG/ACT AERS ALBUTEROL SULFATE Inactive LEVAQUIN 500 MG ORAL TABS Take 1 tab po daily x 8 days LEVAQUIN 500 MG ORAL TABS 872606 LEVOFLOXACIN Inactive PREDNISONE 20 MG TAB 2 tabs daily for 4 days, 1 tab daily for 4 days, 1/2 tab daily for 4 days PREDNISONE 20 MG TAB 838386 PREDNISONE Inactive LOVASTATIN 40 MG ORAL TABS Take 1 tab po every hs LOVASTATIN 40 MG ORAL TABS 496821 LOVASTATIN Inactive DILAUDID 2 MG ORAL TABS Take 1/2 tab po every 4 hours as needed for pain 2014 DILAUDID 2 MG ORAL TABS 604945 HYDROMORPHONE HCL Inactive AMITRIPTYLINE HCL 25 MG ORAL TABS 1 q hs prn AMITRIPTYLINE HCL 25 MG ORAL TABS 155299 AMITRIPTYLINE HCL Inactive MECLIZINE HCL 25 MG TAB 1 tablet three times daily for 3 days, then 1/2 tab three times daily for 3 days. MECLIZINE HCL 25 MG TAB 888538 MECLIZINE HCL Inactive AMLODIPINE BESYLATE 5 MG ORAL TABS Take 1 tab po daily AMLODIPINE BESYLATE 5 MG ORAL TABS 919946 AMLODIPINE BESYLATE Inactive TOPIRAMATE 25 MG TABS 1 tab po BID TOPIRAMATE 25 MG TABS 868799 TOPIRAMATE Inactive PREDNISONE 20 MG TAB 1 tablet twice daily for 2 days, then 1 tablet once daily for 2 days PREDNISONE 20 MG TAB 472571 PREDNISONE Inactive PREDNISONE 20 MG TAB 1 tab twice daily for 3 day, then one daily for three days PREDNISONE 20 MG TAB 787032 PREDNISONE Inactive NIFEDIPINE ER 30 MG ORAL [id number] 1 daily NIFEDIPINE ER 30 MG ORAL [id number] NIFEDIPINE Inactive AMLODIPINE BESYLATE 5 MG TABS 1 tablet by mouth daily AMLODIPINE BESYLATE 5 MG TABS 067814 AMLODIPINE BESYLATE Inactive AZITHROMYCIN 250 MG TABS 2 po qd x 1 day, then 1 po qd x 4 days AZITHROMYCIN 250 MG TABS 5354371 AZITHROMYCIN Inactive AZITHROMYCIN 250 MG TABS 2 po qd x 1 day, then 1 po qd x 4 days AZITHROMYCIN 250 MG TABS 1357444 AZITHROMYCIN Inactive PREDNISONE 20 MG TAB 2 po qd x 5 days PREDNISONE 20 MG TAB 482626 PREDNISONE Inactive Vital Signs Date Name Value [...] Panel - Chemistry sodium, serum 137 mmol/L 940-126 8304/01/03 potassium, serum 3.4 mmol/L 3.5-5.2 chloride, serum [...] Panel, Comp. Metabolic Panel, Magnesium - Chemistry LDL cholesterol, serum 96 mg/dL 0-130 HDL cholesterol, serum 66 mg/dL 32-96 carbon dioxide, venous blood 27.4 mmol/L 21.0-32.0 potassium, serum 3.7 mmol/L 3.5-5.2 chloride, serum 105 mmol/L 98-107 blood glucose 89 mg/dL 65-110 urea nitrogen, blood 9 mg/dL 7-18 creatinine, serum 0.91 mg/dL 0.55-1.30 alanine aminotransferase (SGPT), serum 22 U/L 12-78 aspartate aminotransferase (SGOT), serum 21 U/L 15-37 calcium, serum 8.6 mg/dL 8.5-10.1 bilirubin, serum, total 0.40 mg/dL 0.00-1.00 sodium, serum 142 mmol/L 370-323 8329/08/08 triglyceride, serum, fasting 92 mg/dL 30-200 cholesterol, serum 180 mg/dL 130-200 Lab Report: MICROALB/CREAT W/RATIO - Chemistry albumin/creatinine ratio, urine < 30 mg/g mg/g{creat} 0-29 Lab Report: MICROALB/CREAT W/RATIO - Lab microalbumin, urine 10 0-19 Lab Report: THEOPHYLLINE - Toxicology theophylline level, serum <2.5 mg/L ug/mL 10.0-20.0 Encounters Code Encounter Date Provider Facility CPT-47415 Level 3 Est. Patient 11:51:58 CDT Harinder Hernandez [facility] CPT-23065 Level 3 Est. Patient 11:30:05 CDT Harinder Cr [facility] CPT-75674 Level 4 Est. Patient 10:19:23 CDT Harinder Cr [facility] CPT-24580 Level 3 Est. Patient 09:58:58 CDT Harinder Cr [facility] CPT-98503 Level 3 Est. Patient 12:37:21 CDT Harinder Cr [facility] CPT-48434 Level 3 Est. Patient 18:37:17 CDT Harinder Cr [facility] CPT-45204 Level 4 Est. Patient 11:15:54 CDT Nettie Rohith [facility] CPT-48445 Level 3 Est. Patient 16:42:24 CDT Harinder Cr [facility] CPT-22634 Level 3 Est. Patient 15:03:36 CDT Harinder Cr [facility] CPT-96289 Level 3 Est. Patient 15:03:20 CDT Harinder Cr [facility] CPT-12163 Level 3 Est. Patient 12:14:34 CDT Harinder Cr [facility] CPT-28481 Level 3 Est. Patient 13:47:15 CDT Harinder Shaye [facility] CPT-34113 Level 3 Est. Patient 14:08:24 CDT Harinder Cr [facility] CPT-54998 Level 3 Est. Patient 10:07:15 CDT Harinder Cr [facility] CPT-51956 Level 3 Est. Patient 10:06:59 CDT Harinder Cr [facility] CPT-26146 Level 3 Est. Patient 15:53:29 CDT Jae Morgan MD [facility] CPT-66380 Level 3 Est. Patient 17:19:04 CDT Harinder Hernandez [facility] CPT-39299 Level 3 Est. Patient 11:13:01 CDT Harinder Cr [facility] CPT-42179 Level 3 Est. Patient 09:03:58 CDT Harinder Cr [facility] CPT-54816 Level 3 Est. Patient 14:46:45 [employer] Harinder Hernandez [facility] CPT-20556 Level 3 Est. Patient 09:35:49 [employer] Harinder Hernandez [facility] CPT-45502 Level 3 Est. Patient 09:29:37 [employer] Harinder Hernandez [facility] CPT-94761 Level 3 Est. Patient 15:51:07 CDT Harinder Hernandez [facility] CPT-72023 Level 3 Est. Patient 18:13:13 CDT Harinder Cr [facility] CPT-60930 Level 3 Est. Patient 10:44:19 CDT Harinder Cr [facility] CPT-97489 Level 4 Est. Patient 10:07:19 [employer] Harinder Cr [facility] CPT-48039 Level 3 Est. Patient 15:59:32 [employer] Harinder Cr [facility] Procedures Code Procedure Name Date Entry Date Standard Description CPT-98457 Hip, complete, 2-3 views - XRAY USE ONLY 10:28:40 CDT CPT-50956 BMP - LAB USE ONLY 16:45:09 [employer] CPT-42149 Port a cath flush 12:00:13 [employer] CPT-TCMM Transitional Care Mgmt-Moderate 11:20:16 [employer]NER CPT-07261 First Vx - Ix admin for Medicare patients 17:35:15 CDT CPT-21230 Fluzone Preservative Free Intramuscular Suspension 17:35 :15 CDT CPT-98690 Microalbumin - LAB USE ONLY 11:52:05 CDT CPT-TCMM Transitional Care Mgmt-Moderate 11:33:57 CDT CPT-92341 No Charge Offi Visit 14:11:29 CDT CPT-96664 Magnesium - LAB USE ONLY 10:45:44 CDT CPT-42835 Lipid - LAB USE ONLY 10:45:44 CDT CPT-98666 CBC - LAB USE ONLY 10:45:44 CDT CPT-68040 Venipuncture Draw Fee 10:45:43 CDT CPT-45449 Venipuncture Draw Fee 18:21:27 CDT CPT-JTINJ Asp/Joint Injection 18:38:04 CDT CPT-05527 Immunization Each Additional Inj 17:38:04 CDT CPT-86312 Immunization Single Admin 17:38:04 CDT CPT-54186 Prevnar 13 17:38:04 CDT CPT-03920 Fluzone Quadrivalent preservative free (>=3yrs.) 17:38: 04 CDT CPT-51813 No Charge Offi Visit 11:14:03 CDT CPT-60691 Chest 2V Frontal and Lat 14:00:18 CDT CPT-OV Office Visit 16:10:28 CDT CPT-JTINJ Asp/Joint Injection 09:03:57 CDT CPT-Cryo Cryotherapy 09:35:49 [employer] CPT-JTINJ Asp/Joint Injection 09:34:45 [employer] CPT-J2930 Solu Medrol 125 mg (Methyl Prednisolone Sodium Succinate) 20:37:27 CDT CPT-95842 Abx/Therapy Injection 20:37:27 CDT CPT-82996 Port a cath flush 08:15:51 CDT CPT-07041 Port a cath flush 09:54:16 CDT CPT-60677 Port a cath flush 09:38:02 CDT CPT-63561 Port a cath flush 11:00:27 [employer]NER
--- OUTSIDE RECORDS SUMMARY | 2017-12-29 02:12 | XMS REPORT | Clinical Summary ---
Author Author Admin, QIE Organization [facility] [place] Address Unknown Phone Unavailable Allergies, Adverse Reactions, [...] MD Nausea with vomiting Diarrhea 787.91 Resolved Jea Morgan MD Diarrhea Benign positional vertigo 386.11 [...] right lower quadrant 789.03 Resolved Harinder Shaye Hernnadez DO Abdominal pain, right lower quadrant Needs [...] then one daily for three days PREDNISONE 18416094458 Active Harinder Hernandez DO Active PREDNISONE 20 MG TAB 1 tablet twice daily for 2 days, then 1 tablet once daily for 2 days PREDNISONE 42676298685 No Longer Active Harinder Hernandez DO Active ASMANEX 120 METERED DOSES 220 MCG/INH INH AEPB 2 puffs orally twice daily MOMETASONE FUROATE 52134673368 Active Jeri Sosa RPT,RMA Active NIFEDIPINE ER 30 MG ORAL [id number] 1 daily NIFEDIPINE 16047522148 Active Tawnya Pardo MA Active TOPIRAMATE 25 MG TABS 1 tab po BID TOPIRAMATE 20309296521 No Longer Active Nettie Newberry APRN Active AMLODIPINE BESYLATE 5 MG ORAL TABS Take 1 tab po daily AMLODIPINE BESYLATE 56020290076 No Longer Active Nettie Newberry APRN Active MECLIZINE HCL 25 MG TAB 1 tablet three times daily for 3 days, then 1/2 tab three times daily for 3 days. MECLIZINE HCL 68419486018 No Longer Active Nettie Newberry APRN Active AMITRIPTYLINE HCL 25 MG ORAL TABS 1 q hs prn AMITRIPTYLINE HCL 38510758164 No Longer Active Nettie Newberry APRN Active DILAUDID 2 MG ORAL TABS Take 1/2 tab po every 4 hours as needed for pain 2014 HYDROMORPHONE HCL 55806369058 No Longer Active Nettie Newberry APRN Active CLOPIDOGREL BISULFATE 75 MG ORAL TABS 1 tab by mouth once daily CLOPIDOGREL BISULFATE 17644730739 Active Jeri Sosa RPT,RMA Active ATORVASTATIN CALCIUM 10 MG ORAL TABS 1 at bedtime ATORVASTATIN CALCIUM 51751057649 Active Jeri Sosa RPT,RMA Active LOVASTATIN 40 MG ORAL TABS Take 1 tab po every hs LOVASTATIN 51226178377 No Longer Active Harinder Hernandez DO Active PREDNISONE 20 MG TAB 2 tabs daily for 4 days, 1 tab daily for 4 days, 1/2 tab daily for 4 days PREDNISONE 80690286434 No Longer Active Harinder Hernandez DO Active LEVAQUIN 500 MG ORAL TABS Take 1 tab po daily x 8 days LEVOFLOXACIN 58133020105 No Longer Active Harinder Hernandez DO Active VENTOLIN HFA 108 (90 BASE) MCG/ACT AERS 2 -4 puffs four times a day PRN 2013 ALBUTEROL SULFATE 26767785239 No Longer Active Jeri Sosa RPT,RMA Active ACEBUTOLOL HCL 200 MG CAPS 1 cap in the morning and 2 caps in the evening ACEBUTOLOL HCL 92208043066 No Longer Active Harinder Hernandez DO Active CEFDINIR 300 MG ORAL CAPS take 1 cap po bid x 10 days CEFDINIR 90770843235 No Longer Active Harinder Hernandez DO Active LOVASTATIN 40 MG TABS 1 pill by mouth nightly for cholesterol LOVASTATIN 76607376139 No Longer Active Nettie Newberry APRN Active NITROSTAT 0.4 MG SUBL 1 tab under tongueas needed for chest pain ( may take 3 total, 5 min apart, then call 911) NITROGLYCERIN 10324351790 No Longer Active Nettie Newberry APRN Active POTASSIUM CHLORIDE CR 10 MEQ CPCR 1 capsule by mouth daily 02/14 POTASSIUM CHLORIDE 33989807939 No Longer Active Nettie Newberry APRN Active TESSALON PERLES 100 MG CAP 1 to 2 tablets by mouth 3 times daily as needed for cough BENZONATATE 79133610855 No Longer Active Nettie Newberry APRN Active THEOPHYLLINE ER 200 MG ORAL [id number] Take 1 tab every 12 hours THEOPHYLLINE 30173435609 Active Jeri Sosa RPT,RMA Active PREDNISONE 20 MG TAB 2 po qd x 5 days PREDNISONE 55903813549 No Longer Active Jae Morgan MD Active AZITHROMYCIN 250 MG TABS 2 po qd x 1 day, then 1 po qd x 4 days AZITHROMYCIN 27229837988 No Longer Active Jae Morgan MD Active PREDNISONE 20 MG TAB 1 tab twice daily for 3 day, then one daily for three days PREDNISONE 53109327629 No Longer Active Jae Morgan MD Active SINGULAIR 10 MG TABS 1 pill by mouth every evening for breathing. MONTELUKAST SODIUM 07768477714 Active Tawnya Pardo MA Active TYLENOL 325 MG TAB 3 by mouth q4h as needed ACETAMINOPHEN 59819315822 Active Harinder Hernandez DO Active POTASSIUM CHLORIDE ER 10 MEQ CR-TABS take 1 tab po daily POTASSIUM CHLORIDE 68410894207 No Longer Active Harinder Hernandez DO Active PREDNISONE 20 MG TAB 1 TID x 2 days, then 1 BID x 3 days, then 1 Daily x 3 days, then stop PREDNISONE 71890726066 No Longer Active Jillina Frazell BAND TUMBLER Active LEVAQUIN 500 MG TAB 1 tablet by mouth daily LEVOFLOXACIN 73127636714 No Longer Active Jillina Frazell BAND TUMBLER Active NEURONTIN 300 MG CAP 1 cap by mouth three times daily for restless leg 06/22 GABAPENTIN 34642344000 No Longer Active Harinder Hernandez DO Active BENZONATATE 100 MG CAPS 1 cap po TID PRN BENZONATATE 81888573096 No Longer Active Harinder Hernandez DO Active MONTELUKAST SODIUM 10 MG TABS 1 tab po in the evening MONTELUKAST SODIUM 92507260392 No Longer Active Harinder Hernandez DO Active MUPIROCIN 2 % OINT apply to affected area BID x 14 days MUPIROCIN 49698927039 No Longer Active Harinder Hernandez DO Active TYLENOL EXTRA STRENGTH 500 MG TABS as needed ACETAMINOPHEN 17185816077 No Longer Active Harinder Hernandez DO Active PREDNISONE 10 MG TABS 1 tab po daily PREDNISONE 40934929540 No Longer Active Harinder Hernandez DO Active PREDNISONE 20 MG TAB 2 tabs daily for 4 days, 1 tab daily for 4 days, 1/2 tab daily for 4 days PREDNISONE 25565951000 No Longer Active Harinder Hernandez DO Active AZITHROMYCIN 250 MG TABS 2 po qd x 1 day, then 1 po qd x 4 days AZITHROMYCIN 10778188619 No Longer Active Harinder Hernandez DO Active PREDNISONE 20 MG TAB 3 tabs today, then 1 tab twice daily for 3 day, then one daily for three days PREDNISONE 78230559428 No Longer Active Harinder Hernandez DO Active NIFEDIAC CC 30 MG [id number] 1 tablet daily for raynaud's syndrome NIFEDIPINE 69857994182 No Longer Active Tawnya Pardo MA Active AMBIEN 10 MG TAB 1/2 tab by mouth at bedtime as needed for sleep ZOLPIDEM TARTRATE 81015007925 Active Harinder Hernandez DO Active CLONAZEPAM 1 MG TABS 1 tablet at bedtime for insomnia and restless legs 09/14 CLONAZEPAM 85113562007 Active Jeri Sosa RPT,RMA Active CLONAZEPAM 0.5 MG TABS 1 tab po daily CLONAZEPAM 36901029980 No Longer Active Harinder Hernandez DO Active PREDNISONE 10 MG TAB 1 tablet daily for COPD PREDNISONE 11027039987 Active Tawnya Pardo MA Active PROAIR HFA 108 (90 BASE) MCG/ACT AERS 2 puffs four times a day as needed 2012 ALBUTEROL SULFATE 12420589727 Active Tawnya Pardo MA Active FLOVENT HFA 110 MCG/ACT AERO 2 puffs inhaled b.i.d. FLUTICASONE PROPIONATE HFA 99284777056 Active Tawnya Pardo MA Active EPIPEN 0.3 MG/0.3ML URIEL DIRECTED EPINEPHRINE Active Jeri Sosa RPT,RMA Active ACIPHEX 20 MG TBEC 1 tab po daily RABEPRAZOLE SODIUM 31573577103 Active Tawnya Pardo MA Active CLONAZEPAM 0.5 MG TABS 1 tab po daily CLONAZEPAM 0.5 MG TABS 674186 CLONAZEPAM Inactive PREDNISONE 20 MG TAB 3 tabs today, then 1 tab twice daily for 3 day, then one daily for three days PREDNISONE 20 MG TAB 342373 PREDNISONE Inactive PREDNISONE 20 MG TAB 2 tabs daily for 4 days, 1 tab daily for 4 days, 1/2 tab daily for 4 days PREDNISONE 20 MG TAB 376922 PREDNISONE Inactive PREDNISONE 10 MG TABS 1 tab po daily PREDNISONE 10 MG TABS 321971 PREDNISONE Inactive TYLENOL EXTRA STRENGTH 500 MG TABS as needed TYLENOL EXTRA STRENGTH 500 MG TABS 280354 ACETAMINOPHEN Inactive MUPIROCIN 2 % OINT apply to affected area BID x 14 days MUPIROCIN 2 % OINT 859233 MUPIROCIN Inactive MONTELUKAST SODIUM 10 MG TABS 1 tab po in the evening MONTELUKAST SODIUM 10 MG TABS 20010818 MONTELUKAST SODIUM Inactive BENZONATATE 100 MG CAPS 1 cap po TID PRN BENZONATATE 100 MG CAPS 772196 BENZONATATE Inactive NEURONTIN 300 MG CAP 1 cap by mouth three times daily for restless leg 06/22 NEURONTIN 300 MG CAP 253448 GABAPENTIN Inactive LEVAQUIN 500 MG TAB 1 tablet by mouth daily LEVAQUIN 500 MG TAB 070573 LEVOFLOXACIN Inactive PREDNISONE 20 MG TAB 1 TID x 2 days, then 1 BID x 3 days, then 1 Daily x 3 days, then stop PREDNISONE 20 MG TAB 791027 PREDNISONE Inactive POTASSIUM CHLORIDE ER 10 MEQ CR-TABS take 1 tab po daily POTASSIUM CHLORIDE ER 10 MEQ CR-TABS POTASSIUM CHLORIDE Inactive PREDNISONE 20 MG TAB 1 tab twice daily for 3 day, then one daily for three days PREDNISONE 20 MG TAB 873209 PREDNISONE Inactive TESSALON PERLES 100 MG CAP 1 to 2 tablets by mouth 3 times daily as needed for cough TESSALON PERLES 100 MG CAP 833245 BENZONATATE Inactive POTASSIUM CHLORIDE CR 10 MEQ [...] nightly for cholesterol LOVASTATIN 40 MG TABS 072408 LOVASTATIN Inactive CEFDINIR 300 MG ORAL CAPS take 1 cap po bid x 10 days CEFDINIR 300 MG ORAL CAPS 318251 CEFDINIR Inactive ACEBUTOLOL HCL 200 MG CAPS 1 cap in the morning and 2 caps in the evening ACEBUTOLOL HCL 200 MG CAPS 784700 ACEBUTOLOL HCL Inactive VENTOLIN HFA 108 (90 BASE) MCG/ACT AERS 2 -4 puffs four times a day PRN 2013 VENTOLIN HFA 108 (90 BASE) MCG/ACT AERS ALBUTEROL SULFATE Inactive LEVAQUIN 500 MG ORAL TABS Take 1 tab po daily x 8 days LEVAQUIN 500 MG ORAL TABS 426740 LEVOFLOXACIN Inactive PREDNISONE 20 MG TAB 2 tabs daily for 4 days, 1 tab daily for 4 days, 1/2 tab daily for 4 days PREDNISONE 20 MG TAB 215889 PREDNISONE Inactive LOVASTATIN 40 MG ORAL TABS Take 1 tab po every hs LOVASTATIN 40 MG ORAL TABS 412547 LOVASTATIN Inactive DILAUDID 2 MG ORAL TABS Take 1/2 tab po every 4 hours as needed for pain 2014 DILAUDID 2 MG ORAL TABS 669282 HYDROMORPHONE HCL Inactive AMITRIPTYLINE HCL 25 MG ORAL TABS 1 q hs prn AMITRIPTYLINE HCL 25 MG ORAL TABS 436796 AMITRIPTYLINE HCL Inactive MECLIZINE HCL 25 MG TAB 1 tablet three times daily for 3 days, then 1/2 tab three times daily for 3 days. MECLIZINE HCL 25 MG TAB 517072 MECLIZINE HCL Inactive AMLODIPINE BESYLATE 5 MG ORAL TABS Take 1 tab po daily AMLODIPINE BESYLATE 5 MG ORAL TABS 885922 AMLODIPINE BESYLATE Inactive TOPIRAMATE 25 MG TABS 1 tab po BID TOPIRAMATE 25 MG TABS 224977 TOPIRAMATE Inactive PREDNISONE 20 MG TAB 1 tablet twice daily for 2 days, then 1 tablet once daily for 2 days PREDNISONE 20 MG TAB 805301 PREDNISONE Inactive AZITHROMYCIN 250 MG TABS 2 po qd x 1 day, then 1 po qd x 4 days AZITHROMYCIN 250 MG TABS 9132895 AZITHROMYCIN Inactive AZITHROMYCIN 250 MG TABS 2 po qd x 1 day, then 1 po qd x 4 days AZITHROMYCIN 250 MG TABS 9932218 AZITHROMYCIN Inactive PREDNISONE 20 MG TAB 2 po qd x 5 days PREDNISONE 20 MG TAB 548982 PREDNISONE Inactive Vital Signs Date Name Value [...] Panel - Chemistry sodium, serum 138 mmol/L 676-646 7322/09/24 potassium, serum 3.5 mmol/L 3.5-5.2 chloride, serum [...] Magnesium - Chemistry cholesterol, serum 180 mg/dL 079-385 4841/08/08 triglyceride, serum, fasting 92 mg/dL 30-200 HDL cholesterol, serum 66 mg/dL 32-96 LDL cholesterol, serum 96 mg/dL 0-130 sodium, serum 142 mmol/L 228-033 9891/08/08 carbon dioxide, venous blood 27.4 mmol/L 21.0-32.0 [...] 0.00-1.00 Encounters Code Encounter Date Provider Facility CPT-06536 Level 3 Est. Patient 09:58:58 CDT Harinder Hernandez [facility] CPT-53796 Level 3 Est. Patient 12:37:21 CDT Harinder Hernandez [facility] CPT-75017 Level 3 Est. Patient 18:37:17 CDT Harinder Hernandez [facility] CPT-05975 Level 4 Est. Patient 11:15:54 CDT Nettieog Newberry APRN [facility] CPT-43589 Level 3 Est. Patient 16:42:24 CDT Harinder Hernandez [facility] CPT-80925 Level 3 Est. Patient 15:03:36 CDT Harinder Hernandez [facility] CPT-03849 Level 3 Est. Patient 15:03:20 CDT Harinder Hernandez [facility] CPT-60274 Level 3 Est. Patient 12:14:34 CDT Harinder Shaye Hernandez [facility] CPT-76908 Level 3 Est. Patient 13:47:15 CDT Harinder Hernandez [facility] CPT-64021 Level 3 Est. Patient 14:08:24 CDT Harinder Hernandez [facility] CPT-60712 Level 3 Est. Patient 10:07:15 CDT Harinder Hernandez [facility] CPT-43904 Level 3 Est. Patient 10:06:59 CDT Harinder Hernandez [facility] CPT-11763 Level 3 Est. Patient 15:53:29 CDT Jae Morgan MD [facility] CPT-11669 Level 3 Est. Patient 17:19:04 CDT Harinder Cr David [facility] CPT-63537 Level 3 Est. Patient 11:13:01 CDT Harinder Cr David [facility] CPT-36258 Level 3 Est. Patient 09:03:58 CDT Harinder Cr [facility] CPT-25587 Level 3 Est. Patient 14:46:45 GRID TRIMMER Harinder Hernandez [facility] CPT-98650 Level 3 Est. Patient 09:35:49 GRID TRIMMER Harinder Hernandez [facility] CPT-56565 Level 3 Est. Patient 09:29:37 GRID TRIMMER Harinder Hernandez [facility] CPT-42802 Level 3 Est. Patient 15:51:07 CDT Harinder Hernandez [facility] CPT-21885 Level 3 Est. Patient 18:13:13 CDT Harinder Hernandez [facility] CPT-60529 Level 3 Est. Patient 10:44:19 CDT Harinder Hernandez [facility] CPT-92794 Level 4 Est. Patient 10:07:19 GRID TRIMMER Harinder Hernandez [facility] CPT-71901 Level 3 Est. Patient 15:59:32 GRID TRIMMER Harinder Cr [facility] Procedures Code Procedure Name Date Entry Date Standard Description CPT-53408 Magnesium - LAB USE ONLY 10:45:44 CDT CPT-03737 Lipid - LAB USE ONLY 10:45:44 CDT CPT-04434 CBC - LAB USE ONLY 10:45:44 CDT CPT-15894 Venipuncture Draw Fee 10:45:43 CDT CPT-38411 Venipuncture Draw Fee 18:21:27 CDT CPT-JTINJ Asp/Joint Injection 18:38:04 CDT CPT-36177 Immunization Each Additional Inj 17:38:04 CDT CPT-76892 Immunization Single Admin 17:38:04 CDT CPT-99821 Prevnar 13 17:38:04 CDT CPT-13318 Fluzone Quadrivalent preservative free (>=3yrs.) 17:38: 04 CDT CPT-23690 No Charge Offi Visit 11:14:03 CDT CPT-41919 Chest 2V Frontal and Lat 14:00:18 CDT CPT-OV Office Visit 16:10:28 CDT CPT-JTINJ Asp/Joint Injection 09:03:57 CDT CPT-Cryo Cryotherapy 09:35:49 GRID TRIMMER CPT-JTINJ Asp/Joint Injection 09:34:45 GRID TRIMMER CPT-J2930 Solu Medrol 125 mg (Methyl Prednisolone Sodium Succinate) 20:37:27 CDT CPT-87218 Abx/Therapy Injection 20:37:27 CDT CPT-39587 Port a cath flush 08:15:51 CDT CPT-77583 Port a cath flush 09:54:16 CDT CPT-87218 Port a cath flush 09:38:02 CDT CPT-35167 Port a cath flush 11:00:27 GRID TRIMMER
--- OUTSIDE RECORDS SUMMARY | 2017-12-29 02:14 | XMS REPORT | Clinical Summary ---
Author Author Admin, QIE Organization [facility] Address Unknown Phone Unavailable Allergies, Adverse Reactions, [...] RELEASE 12 HOUR 1 po BID THEOPHYLLINE [id number] Active Kortney Mccain Active POTASSIUM CHLORIDE ER 20 MEQ ORAL CR-TABS 1 po q day POTASSIUM CHLORIDE 09760445769 Active Kortney Mccain Active POTASSIUM CHLORIDE 20 MEQ ORAL PACK 1 tab po q day POTASSIUM CHLORIDE 33765528447 No Longer Active Kortney Mccain Active POTASSIUM CHLORIDE CR 10 MEQ CPCR 1 capsule BID POTASSIUM CHLORIDE 46752909506 No Longer Active Kortney Mccain Active LASIX 20 MG TAB 1 tablet by mouth every morning FUROSEMIDE 80984824612 No Longer Active Kortney Mccain Active SPIRONOLACTONE 25 MG TAB 1 tablet by mouth daily SPIRONOLACTONE 17821065122 Active Kortney Mccain Active FLUOXETINE HCL 10 MG ORAL CAPS 1 po qd for depression/anxiety FLUOXETINE HCL 04149258101 Active Harinder Hernandez DO Active VOLTAREN 1 % GEL apply q 6-8 hour to left arm as needed for pain DICLOFENAC SODIUM 46830359468 Active Kortney Mccain Active ALBUTEROL SULFATE 0.083 % NEBU SOLN 1 vial neb q 4hrs for severe asthma. 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 FLUTICASONE PROPIONATE HFA 23627480648 Active Harinder Hernandez DO Active EPIPEN 2-BRUNA 0.3 MG/0.3ML INJ SOAJ 1 INJ NEEDED EPINEPHRINE 34044327515 Active Harinder Hernandez DO Active PREDNISONE 20 MG TAB 1 tab twice daily for 3 day, then one daily for three days PREDNISONE 91278711131 No Longer Active Harinder Hernandez DO Active PREDNISONE 20 MG TAB 1 tablet twice daily for 2 days, then 1 tablet once daily for 2 days PREDNISONE 30274743067 No Longer Active Harinder Hernandez DO Active ASMANEX 120 METERED DOSES 220 MCG/INH INH AEPB 2 puffs orally twice daily MOMETASONE FUROATE 94386786002 Active Jeri Sosa LPN Active TOPIRAMATE 25 MG TABS 1 tab po BID TOPIRAMATE 85764030650 No Longer Active Nettie Newberry MAHENDRA Active AMLODIPINE BESYLATE 5 MG ORAL TABS Take 1 tab po daily AMLODIPINE BESYLATE 63847321683 No Longer Active Nettie Newberry MAHENDRA Active MECLIZINE HCL 25 MG TAB 1 tablet three times daily for 3 days, then 1/2 tab three times daily for 3 days. MECLIZINE HCL 06851866901 No Longer Active Nettie Newberry MAHENDRA Active AMITRIPTYLINE HCL 25 MG ORAL TABS 1 q hs prn AMITRIPTYLINE HCL 77516941793 No Longer Active Nettie Newberry MAHENDRA Active DILAUDID 2 MG ORAL TABS Take 1/2 tab po every 4 hours as needed for pain 2014 HYDROMORPHONE HCL 83967437313 No Longer Active Nettie Newberry MAHENDRA Active CLOPIDOGREL BISULFATE 75 MG ORAL TABS 1 tab by mouth once daily CLOPIDOGREL BISULFATE 87871405919 Active Harinder Hernandez DO Active ATORVASTATIN CALCIUM 10 MG ORAL TABS 1 at bedtime ATORVASTATIN CALCIUM 71889772028 Active Kortney Mccain Active LOVASTATIN 40 MG ORAL TABS Take 1 tab po every hs LOVASTATIN 37505305450 No Longer Active Harinder Hernandez DO Active PREDNISONE 20 MG TAB 2 tabs daily for 4 days, 1 tab daily for 4 days, 1/2 tab daily for 4 days PREDNISONE 58753970229 No Longer Active Harinder Hernandez DO Active LEVAQUIN 500 MG ORAL TABS Take 1 tab po daily x 8 days LEVOFLOXACIN 38001797906 No Longer Active Harinder Hernandze DO Active VENTOLIN HFA 108 (90 BASE) MCG/ACT AERS 2 -4 puffs four times a day PRN 2013 ALBUTEROL SULFATE 44641654095 No Longer Active Jeri Sosa LPN Active ACEBUTOLOL HCL 200 MG CAPS 1 cap in the morning and 2 caps in the evening ACEBUTOLOL HCL 79854959586 No Longer Active Harinder Hernandez DO Active CEFDINIR 300 MG ORAL CAPS take 1 cap po bid x 10 days CEFDINIR 33767452659 No Longer Active Harinder Hernandez DO Active LOVASTATIN 40 MG TABS 1 pill by mouth nightly for cholesterol LOVASTATIN 07731344930 No Longer Active Nettie Newberry APRN Active NITROSTAT 0.4 MG SUBL 1 tab under tongueas needed for chest pain ( may take 3 total, 5 min apart, then call 911) NITROGLYCERIN 28336227255 No Longer Active Nettie Newberry APRN Active POTASSIUM CHLORIDE CR 10 MEQ CPCR 1 capsule by mouth daily 02/14 POTASSIUM CHLORIDE 36113452257 No Longer Active Nettie Newberry APRN Active TESSALON PERLES 100 MG CAP 1 to 2 tablets by mouth 3 times daily as needed for cough BENZONATATE 60324943784 No Longer Active Nettie Newberry APRN Active PREDNISONE 20 MG TAB 2 po qd x 5 days PREDNISONE 82986035322 No Longer Active Jae Morgan MD Active AZITHROMYCIN 250 MG TABS 2 po qd x 1 day, then 1 po qd x 4 days AZITHROMYCIN 69227281196 No Longer Active Jae Morgan MD Active PREDNISONE 20 MG TAB 1 tab twice daily for 3 day, then one daily for three days PREDNISONE 94728835287 No Longer Active Jae Morgan MD Active SINGULAIR 10 MG TABS 1 pill by mouth every evening for breathing. MONTELUKAST SODIUM 29334708650 Active Kortney Mccain Active TYLENOL 325 MG TAB 3 by mouth q4h as needed ACETAMINOPHEN 04255516977 Active Harinder Hernandez DO Active POTASSIUM CHLORIDE ER 10 MEQ CR-TABS take 1 tab po daily POTASSIUM CHLORIDE 42201979076 No Longer Active Harinder Hernandez DO Active PREDNISONE 20 MG TAB 1 TID x 2 days, then 1 BID x 3 days, then 1 Daily x 3 days, then stop PREDNISONE 71695002340 No Longer Active John Montemayor APRN Active LEVAQUIN 500 MG TAB 1 tablet by mouth daily LEVOFLOXACIN 00102596126 No Longer Active Jillkvng Cuelloshai MCCRAY Active NEURONTIN 300 MG CAP 1 cap by mouth three times daily for restless leg 06/22 GABAPENTIN 23673611545 No Longer Active Harinder Hernandez DO Active BENZONATATE 100 MG CAPS 1 cap po TID PRN BENZONATATE 72847945113 No Longer Active Harinder Hernandez DO Active MONTELUKAST SODIUM 10 MG TABS 1 tab po in the evening MONTELUKAST SODIUM 19705141041 No Longer Active Harinder Hernandez DO Active MUPIROCIN 2 % OINT apply to affected area BID x 14 days MUPIROCIN 89371943259 No Longer Active Harinder Hernandez DO Active TYLENOL EXTRA STRENGTH 500 MG TABS as needed ACETAMINOPHEN 54703568685 No Longer Active Harinder Hernandez DO Active PREDNISONE 10 MG TABS 1 tab po daily PREDNISONE 36438457172 No Longer Active Harinder Hernandez DO Active PREDNISONE 20 MG TAB 2 tabs daily for 4 days, 1 tab daily for 4 days, 1/2 tab daily for 4 days PREDNISONE 88486788049 No Longer Active Harinder Hernandez DO Active AZITHROMYCIN 250 MG TABS 2 po qd x 1 day, then 1 po qd x 4 days AZITHROMYCIN 69401079057 No Longer Active Harinder Hernandez DO Active PREDNISONE 20 MG TAB 3 tabs today, then 1 tab twice daily for 3 day, then one daily for three days PREDNISONE 95400422844 No Longer Active Harinder Hernandez DO Active NIFEDIAC CC 30 MG [id number] 1 tablet daily for raynaud's syndrome NIFEDIPINE 33344251273 No Longer Active Tawnya Pardo MA Active AMBIEN 10 MG TAB 1/2 tab by mouth at bedtime as needed for sleep ZOLPIDEM TARTRATE 26924205165 Active Kortney Mccain Active CLONAZEPAM 1 MG TABS 1 tablet at bedtime for insomnia and restless legs 09/14 CLONAZEPAM 88717149278 Active Harinder Hernandez DO Active CLONAZEPAM 0.5 MG TABS 1 tab po daily CLONAZEPAM 44328170319 No Longer Active Harinder Hernandez DO Active PREDNISONE 10 MG TAB 1 tablet daily for COPD PREDNISONE 24409012060 Active Harinder Hernandez DO Active PROAIR HFA 108 (90 BASE) MCG/ACT AERS 2 puffs four times a day as needed 2012 ALBUTEROL SULFATE 34773553157 Active Harinder Hernandez DO Active FLOVENT HFA 110 MCG/ACT AERO 2 puffs inhaled b.i.d. FLUTICASONE PROPIONATE HFA 94474697572 Active Kortney Mccain Active ACIPHEX 20 MG TBEC 1 tab po daily RABEPRAZOLE SODIUM 92123704038 Active Kaylah Newberry Active CLONAZEPAM 0.5 MG TABS 1 tab po daily CLONAZEPAM 0.5 MG TABS 050946 CLONAZEPAM Inactive PREDNISONE 20 MG TAB 3 tabs today, then 1 tab twice daily for 3 day, then one daily for three days PREDNISONE 20 MG TAB 716606 PREDNISONE Inactive PREDNISONE 20 MG TAB 2 tabs daily for 4 days, 1 tab daily for 4 days, 1/2 tab daily for 4 days PREDNISONE 20 MG TAB 605436 PREDNISONE Inactive PREDNISONE 10 MG TABS 1 tab po daily PREDNISONE 10 MG TABS 053713 PREDNISONE Inactive TYLENOL EXTRA STRENGTH 500 MG TABS as needed TYLENOL EXTRA STRENGTH 500 MG TABS 561362 ACETAMINOPHEN Inactive MUPIROCIN 2 % OINT apply to affected area BID x 14 days MUPIROCIN 2 % OINT 130833 MUPIROCIN Inactive MONTELUKAST SODIUM 10 MG TABS 1 tab po in the evening MONTELUKAST SODIUM 10 MG TABS 20010818 MONTELUKAST SODIUM Inactive BENZONATATE 100 MG CAPS 1 cap po TID PRN BENZONATATE 100 MG CAPS 649336 BENZONATATE Inactive NEURONTIN 300 MG CAP 1 cap by mouth three times daily for restless leg 06/22 NEURONTIN 300 MG CAP 455949 GABAPENTIN Inactive LEVAQUIN 500 MG TAB 1 tablet by mouth daily LEVAQUIN 500 MG TAB 157779 LEVOFLOXACIN Inactive PREDNISONE 20 MG TAB 1 TID x 2 days, then 1 BID x 3 days, then 1 Daily x 3 days, then stop PREDNISONE 20 MG TAB 929702 PREDNISONE Inactive POTASSIUM CHLORIDE ER 10 MEQ CR-TABS take 1 tab po daily POTASSIUM CHLORIDE ER 10 MEQ CR-TABS POTASSIUM CHLORIDE Inactive PREDNISONE 20 MG TAB 1 tab twice daily for 3 day, then one daily for three days PREDNISONE 20 MG TAB 260116 PREDNISONE Inactive TESSALON PERLES 100 MG CAP 1 to 2 tablets by mouth 3 times daily as needed for cough TESSALON PERLES 100 MG CAP 461688 BENZONATATE Inactive POTASSIUM CHLORIDE CR 10 MEQ CPCR 1 capsule by mouth daily 02/14 POTASSIUM CHLORIDE CR 10 MEQ CPCR POTASSIUM CHLORIDE Inactive NITROSTAT 0.4 MG SUBL 1 tab under tongueas needed for chest pain ( may take 3 total, 5 min apart, then call 911) NITROSTAT 0.4 MG SUBL 741236 NITROGLYCERIN Inactive LOVASTATIN 40 MG TABS 1 pill by mouth nightly for cholesterol LOVASTATIN 40 MG TABS 018555 LOVASTATIN Inactive CEFDINIR 300 MG ORAL CAPS take 1 cap po bid x 10 days CEFDINIR 300 MG ORAL CAPS 710050 CEFDINIR Inactive ACEBUTOLOL HCL 200 MG CAPS 1 cap in the morning and 2 caps in the evening ACEBUTOLOL HCL 200 MG CAPS 742790 ACEBUTOLOL HCL Inactive VENTOLIN HFA 108 (90 BASE) MCG/ACT AERS 2 -4 puffs four times a day PRN 2013 VENTOLIN HFA 108 (90 BASE) MCG/ACT AERS ALBUTEROL SULFATE Inactive LEVAQUIN 500 MG ORAL TABS Take 1 tab po daily x 8 days LEVAQUIN 500 MG ORAL TABS 761846 LEVOFLOXACIN Inactive PREDNISONE 20 MG TAB 2 tabs daily for 4 days, 1 tab daily for 4 days, 1/2 tab daily for 4 days PREDNISONE 20 MG TAB 101976 PREDNISONE Inactive LOVASTATIN 40 MG ORAL TABS Take 1 tab po every hs LOVASTATIN 40 MG ORAL TABS 586298 LOVASTATIN Inactive DILAUDID 2 MG ORAL TABS Take 1/2 tab po every 4 hours as needed for pain 2014 DILAUDID 2 MG ORAL TABS 262563 HYDROMORPHONE HCL Inactive AMITRIPTYLINE HCL 25 MG ORAL TABS 1 q hs prn AMITRIPTYLINE HCL 25 MG ORAL TABS 906863 AMITRIPTYLINE HCL Inactive MECLIZINE HCL 25 MG TAB 1 tablet three times daily for 3 days, then 1/2 tab three times daily for 3 days. MECLIZINE HCL 25 MG TAB 647546 MECLIZINE HCL Inactive AMLODIPINE BESYLATE 5 MG ORAL TABS Take 1 tab po daily AMLODIPINE BESYLATE 5 MG ORAL TABS 602953 AMLODIPINE BESYLATE Inactive TOPIRAMATE 25 MG TABS 1 tab po BID TOPIRAMATE 25 MG TABS 405585 TOPIRAMATE Inactive PREDNISONE 20 MG TAB 1 tablet twice daily for 2 days, then 1 tablet once daily for 2 days PREDNISONE 20 MG TAB 258546 PREDNISONE Inactive PREDNISONE 20 MG TAB 1 tab twice daily for 3 day, then one daily for three days PREDNISONE 20 MG TAB 833972 PREDNISONE Inactive NIFEDIPINE ER 30 MG ORAL [id number] 1 daily NIFEDIPINE ER 30 MG ORAL [id number] NIFEDIPINE Inactive AMLODIPINE BESYLATE 5 MG TABS 1 tablet by mouth daily AMLODIPINE BESYLATE 5 MG TABS 675122 AMLODIPINE BESYLATE Inactive LASIX 20 MG TAB 1 tablet by mouth every morning LASIX 20 MG TAB 780925 FUROSEMIDE Inactive POTASSIUM CHLORIDE CR 10 MEQ CPCR 1 capsule BID POTASSIUM CHLORIDE CR 10 MEQ CPCR POTASSIUM CHLORIDE Inactive POTASSIUM CHLORIDE 20 MEQ ORAL PACK 1 tab po q day POTASSIUM CHLORIDE 20 MEQ ORAL PACK 0812492 POTASSIUM CHLORIDE Inactive AZITHROMYCIN 250 MG TABS 2 po qd x 1 day, then 1 po qd x 4 days AZITHROMYCIN 250 MG TABS 240503 AZITHROMYCIN Inactive AZITHROMYCIN 250 MG TABS 2 po qd x 1 day, then 1 po qd x 4 days AZITHROMYCIN 250 MG TABS 867626 AZITHROMYCIN Inactive PREDNISONE 20 MG TAB 2 po qd x 5 days PREDNISONE 20 MG TAB 527364 PREDNISONE Inactive Vital Signs Date Name Value [...] Panel - Chemistry sodium, serum 137 mmol/L 904-222 0851/01/03 potassium, serum 3.4 mmol/L 3.5-5.2 chloride, serum 102 mmol/L 98-107 carbon dioxide, venous blood 29.2 mmol/L 21.0-32.0 blood glucose 87 mg/dL 65-110 calcium, serum 8.5 mg/dL 8.5-10.1 urea nitrogen, blood 8 mg/dL 7-18 creatinine, serum 0.82 mg/dL 0.55-1.30 sodium, serum 140 mmol/L 299-999 4405/07/13 potassium, serum 3.2 mmol/L 3.5-5.2 chloride, serum 103 mmol/L 98-107 carbon dioxide, venous blood 26.9 mmol/L 21.0-32.0 blood glucose 93 mg/dL 65-110 calcium, serum 9.2 mg/dL 8.5-10.1 urea nitrogen, blood 13 mg/dL 7-18 creatinine, serum 0.84 mg/dL 0.60-1.30 sodium, serum 140 mmol/L 309-142 2580/08/21 potassium, serum 3.8 mmol/L 3.5-5.2 chloride, serum [...] ... - Chemistry sodium, serum 141 mmol/L 875-742 7757/08/07 carbon dioxide, venous blood 34.0 mmol/L 21.0-32.0 [...] 1.40 mg/dL 0.00-1.00 cholesterol, serum 192 mg/dL 510-795 3483/10/19 triglyceride, serum, fasting 71 mg/dL 30-200 HDL cholesterol, serum 72 mg/dL 32-60 LDL cholesterol, serum 106 mg/dL 0-130 Lab Report: THEOPHYLLINE - Toxicology theophylline level, serum 3.1 ug/mL 10.0-20.0 Encounters Code Encounter Date Provider Facility CPT-49970 Level 4 Est. Patient 14:45:25 CDT Harinder Cr [facility] CPT-01526 Level 4 Est. Patient 09:15:13 CDT Harinder Hernandez [facility] CPT-68812 Level 3 Est. Patient 11:51:58 CDT Harinder Cr [facility] CPT-68244 Level 3 Est. Patient 11:30:05 CDT Harinder Cr [facility] CPT-23667 Level 4 Est. Patient 10:19:23 CDT Harinder Cr [facility] CPT-15844 Level 3 Est. Patient 09:58:58 CDT Harinder Hernandez [facility] CPT-65904 Level 3 Est. Patient 12:37:21 CDT Harinder Hernandez [facility] CPT-24628 Level 3 Est. Patient 18:37:17 CDT Harinder Cr [facility] CPT-14752 Level 4 Est. Patient 11:15:54 CDT Nettieog Newberry APRN [facility] CPT-29472 Level 3 Est. Patient 16:42:24 CDT Harinder Cr [facility] CPT-54777 Level 3 Est. Patient 15:03:36 CDT Harinder Shaye David [facility] CPT-97638 Level 3 Est. Patient 15:03:20 CDT Harinder Cr [facility] CPT-65241 Level 3 Est. Patient 12:14:34 CDT Harinder Shaye Hernandez [facility] CPT-09160 Level 3 Est. Patient 13:47:15 CDT Harinder Shaye [facility] CPT-76832 Level 3 Est. Patient 14:08:24 CDT Harinder Shaye [facility] CPT-42524 Level 3 Est. Patient 10:07:15 CDT Harinder Shaye [facility] CPT-79657 Level 3 Est. Patient 10:06:59 CDT Harinder Shaye [facility] CPT-22665 Level 3 Est. Patient 15:53:29 CDT Jae Morgan MD [facility] CPT-02986 Level 3 Est. Patient 17:19:04 CDT Harinder Cr [facility] CPT-89687 Level 3 Est. Patient 11:13:01 CDT Harinder Cr [facility] CPT-72376 Level 3 Est. Patient 09:03:58 CDT Harinder Hernandez [facility] CPT-65106 Level 3 Est. Patient 14:46:45 [employer] Harinder Hernandez [facility] CPT-03249 Level 3 Est. Patient 09:35:49 [employer] Harinder Hernandez [facility] CPT-15705 Level 3 Est. Patient 09:29:37 [employer] Harinder Hernandez [facility] CPT-05771 Level 3 Est. Patient 15:51:07 CDT Harinder Hernandez [facility] CPT-43487 Level 3 Est. Patient 18:13:13 CDT Harinder Hernandez [facility] CPT-50047 Level 3 Est. Patient 10:44:19 CDT Harinder Hernandez [facility] CPT-98159 Level 4 Est. Patient 10:07:19 [employer] Harinder Hernandez [facility] CPT-29016 Level 3 Est. Patient 15:59:32 [employer] Harinder Cr [facility] Procedures Code Procedure Name Date Entry Date Standard Description CPT-45792 Abd compl w upright - XRAY USE ONLY 14:48:09 CDT 02/18 CPT-82577 Port a cath flush 13:46:05 CDT CPT-46960 Hip, complete, 2-3 views - XRAY USE ONLY 10:28:40 CDT CPT-94647 BMP - LAB USE ONLY 16:45:09 [employer] CPT-89992 Port a cath flush 12:00:13 [employer] CPT-TCMM Transitional Care Mgmt-Moderate 11:20:16 [employer] CPT-27621 First Vx - Ix admin for Medicare patients 17:35:15 CDT CPT-19494 Fluzone Preservative Free Intramuscular Suspension 17:35 :15 CDT CPT-92168 Microalbumin - LAB USE ONLY 11:52:05 CDT CPT-TCMM Transitional Care Mgmt-Moderate 11:33:57 CDT CPT-92323 No Charge Offi Visit 14:11:29 CDT CPT-54334 Magnesium - LAB USE ONLY 10:45:44 CDT CPT-57741 Lipid - LAB USE ONLY 10:45:44 CDT CPT-82432 CBC - LAB USE ONLY 10:45:44 CDT CPT-09849 Venipuncture Draw Fee 10:45:43 CDT CPT-81605 Venipuncture Draw Fee 18:21:27 CDT CPT-JTINJ Asp/Joint Injection 18:38:04 CDT CPT-72126 Immunization Each Additional Inj 17:38:04 CDT CPT-08674 Immunization Single Admin 17:38:04 CDT CPT-26932 Prevnar 13 17:38:04 CDT CPT-80576 Fluzone Quadrivalent preservative free (>=3yrs.) 17:38: 04 CDT CPT-86599 No Charge Offi Visit 11:14:03 CDT CPT-73859 Chest 2V Frontal and Lat 14:00:18 CDT CPT-OV Office Visit 16:10:28 CDT CPT-JTINJ Asp/Joint Injection 09:03:57 CDT CPT-Cryo Cryotherapy 09:35:49 [employer] CPT-JTINJ Asp/Joint Injection 09:34:45 [employer] CPT-J2930 Solu Medrol 125 mg (Methyl Prednisolone Sodium Succinate) 20:37:27 CDT CPT-77264 Abx/Therapy Injection 20:37:27 CDT CPT-85508 Port a cath flush 08:15:51 CDT CPT-36552 Port a cath flush 09:54:16 CDT CPT-99151 Port a cath flush 09:38:02 CDT CPT-35158 Port a cath flush 11:00:27 [employer]
--- OUTSIDE RECORDS SUMMARY | 2017-12-29 02:16 | XMS REPORT | Clinical Summary ---
Author Author Admin, QIE Organization [facility] Address Unknown Phone Unavailable Allergies, Adverse Reactions, Alerts Allergy Name Reaction Description Start Date Severity Status Provider VANCOMYCIN Critical Active Harinder Hernandez DO LEVAQUIN stomach upset, diarrhea, and itching Critical Active Harinder Hernandez DO AITHROMYCIN itch Moderate Active Harnider Hernandez DO NEOSPORIN Critical Active Harinder Hernandez [...] tab SL q5min PRN chest pain NITROGLYCERIN 83903017629 Active Meenu Alejo LPN Active THEOPHYLLINE ER 300 MG ORAL TABLET EXTENDED RELEASE 12 HOUR 1 po BID THEOPHYLLINE 33466950481 Active Kortney Mccain Active POTASSIUM CHLORIDE ER 20 MEQ ORAL TABLET EXTENDED RELEASE 1 po q day POTASSIUM CHLORIDE 11204837748 Active Kortney Mccain Active POTASSIUM CHLORIDE 20 MEQ ORAL PACKET 1 tab po q day POTASSIUM CHLORIDE 71283297184 No Longer Active Kortney Mccain Active POTASSIUM CHLORIDE ER 10 MEQ ORAL CAPSULE EXTENDED RELEASE 1 capsule BID 2016 POTASSIUM CHLORIDE 64138570055 No Longer Active Kortney Mccain Active LASIX 20 MG ORAL TABLET 1 tablet by mouth every morning FUROSEMIDE 09022232226 No Longer Active Kortney Mccain Active SPIRONOLACTONE 25 MG ORAL TABLET 1 tablet by mouth daily SPIRONOLACTONE 85538008536 Active Kortney Mccain Active FLUOXETINE HCL 10 MG ORAL CAPSULE 1 po qd for depression/anxiety FLUOXETINE HCL 34918517193 Active Harinder Hernandez DO Active VOLTAREN 1 % TRANSDERMAL GEL apply q 6-8 hour to left arm as needed for pain DICLOFENAC SODIUM 25340845820 Active Kortney Mccain Active ALBUTEROL SULFATE (2.5 MG/3ML) 0.083% INHALATION NEBULIZATION SOLUTION 1 vial neb q 4hrs for severe asthma. 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 NIFEDIPINE 05843550839 Active Kortney Mccain Active AMLODIPINE BESYLATE 5 MG ORAL TABLET 1 tablet by mouth daily 2016 AMLODIPINE BESYLATE 68035086105 No Longer Active Harinder Hernandez DO Active TOPAMAX 25 MG ORAL TABLET 1 tab po BID TOPIRAMATE 30172199658 Active Kortney Mccain Active FLUTICASONE PROPIONATE 50 MCG/ACT NASAL SUSPENSION 2 sprays per nostril daily PRN Allergies FLUTICASONE PROPIONATE 88571743260 Active Meenu Alejo LPN Active NIFEDIPINE ER 30 MG ORAL TABLET EXTENDED RELEASE 24 HOUR 1 daily NIFEDIPINE 58022411963 No Longer Active Harinder Hernandez DO Active FLOVENT HFA 110 MCG/ACT INHALATION AEROSOL 2 puffs inhaled b.i.d. FLUTICASONE PROPIONATE HFA 94975985540 Active Harinder Hernandez DO Active EPIPEN 2-BRUNA 0.3 MG/0.3ML INJECTION SOLUTION AUTO-INJECTOR 1 INJ NEEDED EPINEPHRINE 29080967978 Active Kortney Mccain Active PREDNISONE 20 MG ORAL TABLET 1 tab twice daily for 3 day, then one daily for three days PREDNISONE 84103759576 No Longer Active Harinder Hernandez DO Active PREDNISONE 20 MG ORAL TABLET 1 tablet twice daily for 2 days, then 1 tablet once daily for 2 days PREDNISONE 42339052248 No Longer Active Harinder Hernandez DO Active ASMANEX 120 METERED DOSES 220 MCG/INH INHALATION AEROSOL POWDER BREATH ACTIVATED 2 puffs orally twice daily MOMETASONE FUROATE 26677514741 Active Jeri Sosa LPN Active TOPIRAMATE 25 MG ORAL TABLET 1 tab po BID TOPIRAMATE 53771819337 No Longer Active Nettie Newberry APRN Active AMLODIPINE BESYLATE 5 MG ORAL TABLET Take 1 tab po daily AMLODIPINE BESYLATE 49429429774 No Longer Active Nettie Newberry APRN Active MECLIZINE HCL 25 MG ORAL TABLET 1 tablet three times daily for 3 days, then 1/ 2 tab three times daily for 3 days. MECLIZINE HCL 73522197471 No Longer Active Nettieog Newberry APRN Active AMITRIPTYLINE HCL 25 MG ORAL TABLET 1 q hs prn AMITRIPTYLINE HCL 57927906632 No Longer Active Nettieog Newberry APRN Active DILAUDID 2 MG ORAL TABLET Take 1/2 tab po every 4 hours as needed for pain HYDROMORPHONE HCL 58538094869 No Longer Active Nettie Newberry APRN Active CLOPIDOGREL BISULFATE 75 MG ORAL TABLET 1 tab by mouth once daily CLOPIDOGREL BISULFATE 92087554075 Active Meenu Alejo LPN Active ATORVASTATIN CALCIUM 10 MG ORAL TABLET 1 at bedtime ATORVASTATIN CALCIUM 63862492193 Active Kortney Mccain Active LOVASTATIN 40 MG ORAL TABLET Take 1 tab po every hs LOVASTATIN 43139082552 No Longer Active Harinder Hernandez DO Active PREDNISONE 20 MG ORAL TABLET 2 tabs daily for 4 days, 1 tab daily for 4 days, 1/2 tab daily for 4 days PREDNISONE 98188877773 No Longer Active Harinder Hernandez DO Active LEVAQUIN 500 MG ORAL TABLET Take 1 tab po daily x 8 days LEVOFLOXACIN 92467139056 No Longer Active Harinder Hernandez DO Active VENTOLIN HFA 108 (90 Base) MCG/ACT INHALATION AEROSOL SOLUTION 2 -4 puffs four times a day PRN ALBUTEROL SULFATE 55308529937 No Longer Active Jeri Sosa LPN Active ACEBUTOLOL HCL 200 MG ORAL CAPSULE 1 cap in the morning and 2 caps in the evening ACEBUTOLOL HCL 11729061402 No Longer Active Harinder Hernandez DO Active CEFDINIR 300 MG ORAL CAPSULE take 1 cap po bid x 10 days CEFDINIR 89101132816 No Longer Active Harinder Hernandez DO Active LOVASTATIN 40 MG ORAL TABLET 1 pill by mouth nightly for cholesterol LOVASTATIN 18768980945 No Longer Active Nettie Newberry APRN Active NITROSTAT 0.4 MG SUBLINGUAL TABLET SUBLINGUAL 1 tab under tongueas needed for chest pain ( may take 3 total, 5 min apart, then call 911) NITROGLYCERIN 82522520022 No Longer Active Nettie Newberry APRN Active POTASSIUM CHLORIDE ER 10 MEQ ORAL CAPSULE EXTENDED RELEASE 1 capsule by mouth daily POTASSIUM CHLORIDE 47847750366 No Longer Active Nettie Newberry APRN Active TESSALON PERLES 100 MG ORAL CAPSULE 1 to 2 tablets by mouth 3 times daily as needed for cough BENZONATATE 24297343302 No Longer Active Nettie Newberry APRN Active PREDNISONE 20 MG ORAL TABLET 2 po qd x 5 days PREDNISONE 13150095593 No Longer Active Jae Morgan MD Active AZITHROMYCIN 250 MG ORAL TABLET 2 po qd x 1 day, then 1 po qd x 4 days 12/30 AZITHROMYCIN 04750316522 No Longer Active Jae Morgan MD Active PREDNISONE 20 MG ORAL TABLET 1 tab twice daily for 3 day, then one daily for three days PREDNISONE 69398442784 No Longer Active Jae Morgan MD Active SINGULAIR 10 MG ORAL TABLET 1 pill by mouth every evening for breathing. 2014 MONTELUKAST SODIUM 50996934463 Active Meenu Alejo LPN Active TYLENOL 325 MG ORAL TABLET 3 by mouth q4h as needed ACETAMINOPHEN 82297506915 Active Harinder Hernandez DO Active POTASSIUM CHLORIDE ER 10 MEQ ORAL TABLET EXTENDED RELEASE take 1 tab po daily POTASSIUM CHLORIDE 01981264825 No Longer Active Harinder Hernandez DO Active PREDNISONE 20 MG ORAL TABLET 1 TID x 2 days, then 1 BID x 3 days, then 1 Daily x 3 days, then stop PREDNISONE 16195356166 No Longer Active John Montemayor APRN Active LEVAQUIN 500 MG ORAL TABLET 1 tablet by mouth daily LEVOFLOXACIN 64411492997 No Longer Active Derrickllkvng Montemayor APRN Active NEURONTIN 300 MG ORAL CAPSULE 1 cap by mouth three times daily for restless leg GABAPENTIN 92974884307 No Longer Active Harinder Hernandez DO Active BENZONATATE 100 MG ORAL CAPSULE 1 cap po TID PRN BENZONATATE 33657596788 No Longer Active Harinder Hernandez DO Active MONTELUKAST SODIUM 10 MG ORAL TABLET 1 tab po in the evening 2014 MONTELUKAST SODIUM 80779042366 No Longer Active Harinder Hernandez DO Active MUPIROCIN 2 % EXTERNAL OINTMENT apply to affected area BID x 14 days MUPIROCIN 19454385676 No Longer Active Harinder Hernandez DO Active TYLENOL EXTRA STRENGTH 500 MG ORAL TABLET as needed ACETAMINOPHEN 72188221230 No Longer Active Harinder Hernandez DO Active PREDNISONE 10 MG ORAL TABLET 1 tab po daily PREDNISONE 40079746458 No Longer Active Harinder Hernandez DO Active PREDNISONE 20 MG ORAL TABLET 2 tabs daily for 4 days, 1 tab daily for 4 days, 1/2 tab daily for 4 days PREDNISONE 90339449312 No Longer Active Harinder Hernandez DO Active AZITHROMYCIN 250 MG ORAL TABLET 2 po qd x 1 day, then 1 po qd x 4 days 04/06 AZITHROMYCIN 61759229761 No Longer Active Harinder Hernandez DO Active PREDNISONE 20 MG ORAL TABLET 3 tabs today, then 1 tab twice daily for 3 day, then one daily for three days PREDNISONE 66623626705 No Longer Active Harinder Hernandez DO Active NIFEDIAC CC 30 MG ORAL TABLET EXTENDED RELEASE 24 HOUR 1 tablet daily for raynaud's syndrome NIFEDIPINE 09686173362 No Longer Active Tawnya Pardo MA Active AMBIEN 10 MG ORAL TABLET 1/2 tab by mouth at bedtime as needed for sleep 2013 ZOLPIDEM TARTRATE 83714241943 Active Meenu Melo CHEN Active CLONAZEPAM 1 MG ORAL TABLET 1 tablet at bedtime for insomnia and restless legs CLONAZEPAM 31750755874 Active Harinder Hernandez DO Active CLONAZEPAM 0.5 MG ORAL TABLET 1 tab po daily CLONAZEPAM 50442145891 No Longer Active Harinder Hernandez DO Active PREDNISONE 10 MG ORAL TABLET 1 tablet daily for COPD PREDNISONE 94162002773 Active Kortney Mccain Active PROAIR HFA 108 (90 Base) MCG/ACT INHALATION AEROSOL SOLUTION 2 puffs four times a day as needed ALBUTEROL SULFATE 00377654771 Active Harinder Hernandez DO Active FLOVENT HFA 110 MCG/ACT INHALATION AEROSOL 2 puffs inhaled b.i.d. FLUTICASONE PROPIONATE HFA 81712393717 Active Kortney Mccain Active ACIPHEX 20 MG ORAL TABLET DELAYED RELEASE 1 tab po daily RABEPRAZOLE SODIUM 75281402245 Active Kaylah Newberry Active CLONAZEPAM 0.5 MG ORAL TABLET 1 tab po daily CLONAZEPAM 0.5 MG ORAL TABLET 804312 CLONAZEPAM Inactive PREDNISONE 20 MG ORAL TABLET 3 tabs today, then 1 tab twice daily for 3 day, then one daily for three days PREDNISONE 20 MG ORAL TABLET 982854 PREDNISONE Inactive PREDNISONE 20 MG ORAL TABLET 2 tabs daily for 4 days, 1 tab daily for 4 days, 1/2 tab daily for 4 days PREDNISONE 20 MG ORAL TABLET 620712 PREDNISONE Inactive PREDNISONE 10 MG ORAL TABLET 1 tab po daily PREDNISONE 10 MG ORAL TABLET 179005 PREDNISONE Inactive TYLENOL EXTRA STRENGTH 500 MG ORAL TABLET as needed TYLENOL EXTRA STRENGTH 500 MG ORAL TABLET 526908 ACETAMINOPHEN Inactive MUPIROCIN 2 % EXTERNAL OINTMENT apply to affected area BID x 14 days MUPIROCIN 2 % EXTERNAL OINTMENT 082556 MUPIROCIN Inactive MONTELUKAST SODIUM 10 MG ORAL TABLET 1 tab po in the evening 2014 MONTELUKAST SODIUM 10 MG ORAL TABLET 824381 MONTELUKAST SODIUM Inactive BENZONATATE 100 MG ORAL CAPSULE 1 cap po TID PRN BENZONATATE 100 MG ORAL CAPSULE 305184 BENZONATATE Inactive NEURONTIN 300 MG ORAL CAPSULE 1 cap by mouth three times daily for restless leg NEURONTIN 300 MG ORAL CAPSULE 919738 GABAPENTIN Inactive LEVAQUIN 500 MG ORAL TABLET 1 tablet by mouth daily LEVAQUIN 500 MG ORAL TABLET 955914 LEVOFLOXACIN Inactive PREDNISONE 20 MG ORAL TABLET 1 TID x 2 days, then 1 BID x 3 days, then 1 Daily x 3 days, then stop PREDNISONE 20 MG ORAL TABLET 601971 PREDNISONE Inactive POTASSIUM CHLORIDE ER 10 MEQ ORAL TABLET EXTENDED RELEASE take 1 tab po daily POTASSIUM CHLORIDE ER 10 MEQ ORAL TABLET EXTENDED RELEASE POTASSIUM CHLORIDE Inactive PREDNISONE 20 MG ORAL TABLET 1 tab twice daily for 3 day, then one daily for three days PREDNISONE 20 MG ORAL TABLET 183394 PREDNISONE Inactive TESSALON PERLES 100 MG ORAL CAPSULE 1 to 2 tablets by mouth 3 times daily as needed for cough TESSALON PERLES 100 MG ORAL CAPSULE 011991 BENZONATATE Inactive POTASSIUM CHLORIDE ER 10 MEQ ORAL CAPSULE EXTENDED RELEASE 1 capsule by mouth daily POTASSIUM CHLORIDE ER 10 MEQ ORAL CAPSULE EXTENDED RELEASE POTASSIUM CHLORIDE Inactive NITROSTAT 0.4 MG SUBLINGUAL TABLET SUBLINGUAL 1 tab under tongueas needed for chest pain ( may take 3 total, 5 min apart, then call 911) NITROSTAT 0.4 MG SUBLINGUAL TABLET SUBLINGUAL 867583 NITROGLYCERIN Inactive LOVASTATIN 40 MG ORAL TABLET 1 pill by mouth nightly for cholesterol LOVASTATIN 40 MG ORAL TABLET 794428 LOVASTATIN Inactive CEFDINIR 300 MG ORAL CAPSULE take 1 cap po bid x 10 days CEFDINIR 300 MG ORAL CAPSULE 876164 CEFDINIR Inactive ACEBUTOLOL HCL 200 MG ORAL CAPSULE 1 cap in the morning and 2 caps in the evening ACEBUTOLOL HCL 200 MG ORAL CAPSULE 102948 ACEBUTOLOL HCL Inactive VENTOLIN HFA 108 (90 Base) MCG/ACT INHALATION AEROSOL SOLUTION 2 -4 puffs four times a day PRN VENTOLIN HFA 108 (90 Base) MCG/ ACT INHALATION AEROSOL SOLUTION ALBUTEROL SULFATE Inactive LEVAQUIN 500 MG ORAL TABLET Take 1 tab po daily x 8 days LEVAQUIN 500 MG ORAL TABLET 929152 LEVOFLOXACIN Inactive PREDNISONE 20 MG ORAL TABLET 2 tabs daily for 4 days, 1 tab daily for 4 days, 1/2 tab daily for 4 days PREDNISONE 20 MG ORAL TABLET 566901 PREDNISONE Inactive LOVASTATIN 40 MG ORAL TABLET Take 1 tab po every hs LOVASTATIN 40 MG ORAL TABLET 116370 LOVASTATIN Inactive DILAUDID 2 MG ORAL TABLET Take 1/2 tab po every 4 hours as needed for pain DILAUDID 2 MG ORAL TABLET 453238 HYDROMORPHONE HCL Inactive AMITRIPTYLINE HCL 25 MG ORAL TABLET 1 q hs prn AMITRIPTYLINE HCL 25 MG ORAL TABLET 781382 AMITRIPTYLINE HCL Inactive MECLIZINE HCL 25 MG ORAL TABLET 1 tablet three times daily for 3 days, then 1/ 2 tab three times daily for 3 days. MECLIZINE HCL 25 MG ORAL TABLET 500657 MECLIZINE HCL Inactive AMLODIPINE BESYLATE 5 MG ORAL TABLET Take 1 tab po daily AMLODIPINE BESYLATE 5 MG ORAL TABLET 179287 AMLODIPINE BESYLATE Inactive TOPIRAMATE 25 MG ORAL TABLET 1 tab po BID TOPIRAMATE 25 MG ORAL TABLET 985819 TOPIRAMATE Inactive PREDNISONE 20 MG ORAL TABLET 1 tablet twice daily for 2 days, then 1 tablet once daily for 2 days PREDNISONE 20 MG ORAL TABLET 817908 PREDNISONE Inactive PREDNISONE 20 MG ORAL TABLET 1 tab twice daily for 3 day, then one daily for three days PREDNISONE 20 MG ORAL TABLET 418736 PREDNISONE Inactive NIFEDIPINE ER 30 MG ORAL TABLET EXTENDED RELEASE 24 HOUR 1 daily NIFEDIPINE ER 30 MG ORAL TABLET EXTENDED RELEASE 24 HOUR NIFEDIPINE Inactive AMLODIPINE BESYLATE 5 MG ORAL TABLET 1 tablet by mouth daily 2016 AMLODIPINE BESYLATE 5 MG ORAL TABLET 707936 AMLODIPINE BESYLATE Inactive LASIX 20 MG ORAL TABLET 1 tablet by mouth every morning LASIX 20 MG ORAL TABLET 728165 FUROSEMIDE Inactive POTASSIUM CHLORIDE ER 10 MEQ ORAL CAPSULE EXTENDED RELEASE 1 capsule BID 2016 POTASSIUM CHLORIDE ER 10 MEQ ORAL CAPSULE EXTENDED RELEASE POTASSIUM CHLORIDE Inactive POTASSIUM CHLORIDE 20 MEQ ORAL PACKET 1 tab po q day POTASSIUM CHLORIDE 20 MEQ ORAL PACKET 7534284 POTASSIUM CHLORIDE Inactive AZITHROMYCIN 250 MG ORAL TABLET 2 po qd x 1 day, then 1 po qd x 4 days 04/06 AZITHROMYCIN 250 MG ORAL TABLET 334302 AZITHROMYCIN Inactive AZITHROMYCIN 250 MG ORAL TABLET 2 po qd x 1 day, then 1 po qd x 4 days 12/30 AZITHROMYCIN 250 MG ORAL TABLET 287444 AZITHROMYCIN Inactive PREDNISONE 20 MG ORAL TABLET 2 po qd x 5 days PREDNISONE 20 MG ORAL TABLET 620522 PREDNISONE Inactive Vital Signs Date Name Value [...] Panel - Chemistry sodium, serum 140 mmol/L 022-179 7346/07/13 potassium, serum 3.2 mmol/L 3.5-5.2 chloride, serum 103 mmol/L 98-107 carbon dioxide, venous blood 26.9 mmol/L 21.0-32.0 blood glucose 93 mg/dL 65-110 calcium, serum 9.2 mg/dL 8.5-10.1 urea nitrogen, blood 13 mg/dL 7-18 creatinine, serum 0.84 mg/dL 0.60-1.30 sodium, serum 140 mmol/L 271-558 0609/08/21 potassium, serum 3.8 mmol/L 3.5-5.2 chloride, serum [...] ... - Chemistry sodium, serum 141 mmol/L 016-268 3368/08/07 carbon dioxide, venous blood 34.0 mmol/L 21.0-32.0 [...] 1.40 mg/dL 0.00-1.00 cholesterol, serum 192 mg/dL 806-233 3363/10/19 triglyceride, serum, fasting 71 mg/dL 30-200 HDL cholesterol, serum 72 mg/dL 32-60 LDL cholesterol, serum 106 mg/dL 0-130 Lab Report: THEOPHYLLINE - Toxicology theophylline level, serum 3.1 ug/mL 10.0-20.0 Encounters Code Encounter Date Provider Facility CPT-23063 Level 4 Est. Patient 14:45:25 CDT Harinder Cr [facility] CPT-11849 Level 4 Est. Patient 09:15:13 CDT Harinder Cr [facility] CPT-14521 Level 3 Est. Patient 11:51:58 CDT Harinder Hernandez [facility] CPT-09513 Level 3 Est. Patient 11:30:05 CDT Harinder Cr [facility] CPT-32604 Level 4 Est. Patient 10:19:23 CDT Harinder Cr [facility] CPT-67497 Level 3 Est. Patient 09:58:58 CDT Harinder Cr [facility] CPT-01441 Level 3 Est. Patient 12:37:21 CDT Harinder Cr [facility] CPT-05634 Level 3 Est. Patient 18:37:17 CDT Harinder Cr [facility] CPT-11481 Level 4 Est. Patient 11:15:54 CDT Nettie Newberry APRN [facility] CPT-62824 Level 3 Est. Patient 16:42:24 CDT Harinder Hernandez [facility] CPT-06703 Level 3 Est. Patient 15:03:36 CDT Harinder Hernandez [facility] CPT-05341 Level 3 Est. Patient 15:03:20 CDT Harinder Hernandez [facility] CPT-47991 Level 3 Est. Patient 12:14:34 CDT Harinder Hernandez [facility] CPT-29018 Level 3 Est. Patient 13:47:15 CDT Harinder Hernandez [facility] CPT-13027 Level 3 Est. Patient 14:08:24 CDT Harinder Hernandez [facility] CPT-26656 Level 3 Est. Patient 10:07:15 CDT Harinder Hernandez [facility] CPT-44481 Level 3 Est. Patient 10:06:59 CDT Harinder Hernandez [facility] CPT-75580 Level 3 Est. Patient 15:53:29 CDT Jae Morgan MD [facility] CPT-39659 Level 3 Est. Patient 17:19:04 CDT Harinder Hernandez [facility] CPT-49362 Level 3 Est. Patient 11:13:01 CDT Harinder Hernandez [facility] CPT-20659 Level 3 Est. Patient 09:03:58 CDT Harinder Shaye Hernandez [facility] CPT-17925 Level 3 Est. Patient 14:46:45 [employer] Harinder Cr David [facility] CPT-90614 Level 3 Est. Patient 09:35:49 [employer] Harinder Hernandez [facility] CPT-57659 Level 3 Est. Patient 09:29:37 [employer] Harinder Hernandez [facility] CPT-86255 Level 3 Est. Patient 15:51:07 CDT Harinder Hernandez [facility] CPT-38649 Level 3 Est. Patient 18:13:13 CDT Harinder Hernandez [facility] CPT-32181 Level 3 Est. Patient 10:44:19 CDT Harinder Hernandez [facility] CPT-23924 Level 4 Est. Patient 10:07:19 [employer] Harinder Hernandez [facility] CPT-58686 Level 3 Est. Patient 15:59:32 [employer] Harinder Cr [facility] Procedures Code Procedure Name Date Entry Date Standard Description CPT-80430 Abd compl w upright - XRAY USE ONLY 14:48:09 CDT 02/18 CPT-02241 Port a cath flush 13:46:05 CDT CPT-76535 Hip, complete, 2-3 views - XRAY USE ONLY 10:28:40 CDT CPT-46286 BMP - LAB USE ONLY 16:45:09 [employer] CPT-61878 Port a cath flush 12:00:13 [employer] CPT-TCMM Transitional Care Mgmt-Moderate 11:20:16 [employer] CPT-72980 First Vx - Ix admin for Medicare patients 17:35:15 CDT CPT-32408 Fluzone Preservative Free Intramuscular Suspension 17:35 :15 CDT CPT-97947 Microalbumin - LAB USE ONLY 11:52:05 CDT CPT-TCMM Transitional Care Mgmt-Moderate 11:33:57 CDT CPT-60064 No Charge Offi Visit 14:11:29 CDT CPT-02795 Magnesium - LAB USE ONLY 10:45:44 CDT CPT-48984 Lipid - LAB USE ONLY 10:45:44 CDT CPT-28951 CBC - LAB USE ONLY 10:45:44 CDT CPT-30276 Venipuncture Draw Fee 10:45:43 CDT CPT-43643 Venipuncture Draw Fee 18:21:27 CDT CPT-JTINJ Asp/Joint Injection 18:38:04 CDT CPT-66330 Immunization Each Additional Inj 17:38:04 CDT CPT-44575 Immunization Single Admin 17:38:04 CDT CPT-23576 Prevnar 13 17:38:04 CDT CPT-15072 Fluzone Quadrivalent preservative free (>=3yrs.) 17:38: 04 CDT CPT-67352 No Charge Offi Visit 11:14:03 CDT CPT-03433 Chest 2V Frontal and Lat 14:00:18 CDT CPT-OV Office Visit 16:10:28 CDT CPT-JTINJ Asp/Joint Injection 09:03:57 CDT CPT-Cryo Cryotherapy 09:35:49 [employer] CPT-JTINJ Asp/Joint Injection 09:34:45 [employer] CPT-J2930 Solu Medrol 125 mg (Methyl Prednisolone Sodium Succinate) 20:37:27 CDT CPT-62723 Abx/Therapy Injection 20:37:27 CDT CPT-91318 Port a cath flush 08:15:51 CDT CPT-99244 Port a cath flush 09:54:16 CDT CPT-80189 Port a cath flush 09:38:02 CDT [facility]-02260 Port a cath flush 11:00:27 [employer]
--- OUTSIDE RECORDS SUMMARY | 2017-12-29 02:18 | XMS REPORT | Clinical Summary ---
Author Author Admin, QIE Organization [facility] Address Unknown Phone Unavailable Allergies, Adverse [...] RELEASE 12 HOUR 1 po BID THEOPHYLLINE [id number] Active Kortney cMcain Active POTASSIUM CHLORIDE ER 20 MEQ ORAL CR-TABS 1 po q day POTASSIUM CHLORIDE 05050481051 Active Kortney Mccain Active POTASSIUM CHLORIDE 20 MEQ ORAL PACK 1 tab po q day POTASSIUM CHLORIDE 03027223764 No Longer Active Kortney Mccain Active POTASSIUM CHLORIDE CR 10 MEQ CPCR 1 capsule BID POTASSIUM CHLORIDE 34646050068 No Longer Active Kortney Mccain Active LASIX 20 MG TAB 1 tablet by mouth every morning FUROSEMIDE 67493012745 No Longer Active Kortney Mccain Active SPIRONOLACTONE 25 MG TAB 1 tablet by mouth daily SPIRONOLACTONE 96648945185 Active Kortney Mccain Active FLUOXETINE HCL 10 MG ORAL CAPS 1 po qd for depression/anxiety FLUOXETINE HCL 08541161550 Active Harinder Hernandez DO Active VOLTAREN 1 % GEL apply q 6-8 hour to left arm as needed for pain DICLOFENAC SODIUM 60735797868 Active Kortney Mccain Active ALBUTEROL SULFATE 0.083 % NEBU SOLN 1 vial neb q 4hrs for severe asthma. 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 FLUTICASONE PROPIONATE HFA 20095181399 Active Harinder Hernandez DO Active EPIPEN 2-BRUNA 0.3 MG/0.3ML INJ SOAJ 1 INJ NEEDED EPINEPHRINE 67119178540 Active Harinder Hernandez DO Active PREDNISONE 20 MG TAB 1 tab twice daily for 3 day, then one daily for three days PREDNISONE 49585301604 No Longer Active Harinder Hernandez DO Active PREDNISONE 20 MG TAB 1 tablet twice daily for 2 days, then 1 tablet once daily for 2 days PREDNISONE 04292455211 No Longer Active Harinder Hernandez DO Active ASMANEX 120 METERED DOSES 220 MCG/INH INH AEPB 2 puffs orally twice daily MOMETASONE FUROATE 36939426707 Active Jeri Sosa LPN Active TOPIRAMATE 25 MG TABS 1 tab po BID TOPIRAMATE 51012858214 No Longer Active Nettie Newberry MAHENDRA Active AMLODIPINE BESYLATE 5 MG ORAL TABS Take 1 tab po daily AMLODIPINE BESYLATE 77173469023 No Longer Active Nettie Newberry MAHENDRA Active MECLIZINE HCL 25 MG TAB 1 tablet three times daily for 3 days, then 1/2 tab three times daily for 3 days. MECLIZINE HCL 65008033030 No Longer Active Nettie Newberry MAHENDRA Active AMITRIPTYLINE HCL 25 MG ORAL TABS 1 q hs prn AMITRIPTYLINE HCL 05782246417 No Longer Active Nettie Newberry MAHENDRA Active DILAUDID 2 MG ORAL TABS Take 1/2 tab po every 4 hours as needed for pain 2014 HYDROMORPHONE HCL 11804679640 No Longer Active Nettie Newberry MAHENDRA Active CLOPIDOGREL BISULFATE 75 MG ORAL TABS 1 tab by mouth once daily CLOPIDOGREL BISULFATE 65405233374 Active Harinder Hernandez DO Active ATORVASTATIN CALCIUM 10 MG ORAL TABS 1 at bedtime ATORVASTATIN CALCIUM 80357349089 Active Kortney Mccain Active LOVASTATIN 40 MG ORAL TABS Take 1 tab po every hs LOVASTATIN 25623531895 No Longer Active Harinder Hernandez DO Active PREDNISONE 20 MG TAB 2 tabs daily for 4 days, 1 tab daily for 4 days, 1/2 tab daily for 4 days PREDNISONE 49349784485 No Longer Active Harinder Hernandez DO Active LEVAQUIN 500 MG ORAL TABS Take 1 tab po daily x 8 days LEVOFLOXACIN 71461635910 No Longer Active Harinder Hernandez DO Active VENTOLIN HFA 108 (90 BASE) MCG/ACT AERS 2 -4 puffs four times a day PRN 2013 ALBUTEROL SULFATE 38214942233 No Longer Active Jeri Sosa LPN Active ACEBUTOLOL HCL 200 MG CAPS 1 cap in the morning and 2 caps in the evening ACEBUTOLOL HCL 01150179853 No Longer Active Harinder Hernandez DO Active CEFDINIR 300 MG ORAL CAPS take 1 cap po bid x 10 days CEFDINIR 06501752801 No Longer Active Harinder Hernandez DO Active LOVASTATIN 40 MG TABS 1 pill by mouth nightly for cholesterol LOVASTATIN 86303501148 No Longer Active Nettie Newberry APRN Active NITROSTAT 0.4 MG SUBL 1 tab under tongueas needed for chest pain ( may take 3 total, 5 min apart, then call 911) NITROGLYCERIN 24736669576 No Longer Active Nettie Newberry APRN Active POTASSIUM CHLORIDE CR 10 MEQ CPCR 1 capsule by mouth daily 02/14 POTASSIUM CHLORIDE 75860692467 No Longer Active Nettie Newberry APRN Active TESSALON PERLES 100 MG CAP 1 to 2 tablets by mouth 3 times daily as needed for cough BENZONATATE 40600924237 No Longer Active Nettie Newberry APRN Active PREDNISONE 20 MG TAB 2 po qd x 5 days PREDNISONE 18369746123 No Longer Active Jae Morgan MD Active AZITHROMYCIN 250 MG TABS 2 po qd x 1 day, then 1 po qd x 4 days AZITHROMYCIN 52584238055 No Longer Active Jae Morgan MD Active PREDNISONE 20 MG TAB 1 tab twice daily for 3 day, then one daily for three days PREDNISONE 39090847211 No Longer Active Jae Morgan MD Active SINGULAIR 10 MG TABS 1 pill by mouth every evening for breathing. MONTELUKAST SODIUM 47218772481 Active Kortney Mccain Active TYLENOL 325 MG TAB 3 by mouth q4h as needed ACETAMINOPHEN 93768276029 Active Harinder Hernandez DO Active POTASSIUM CHLORIDE ER 10 MEQ CR-TABS take 1 tab po daily POTASSIUM CHLORIDE 16490324258 No Longer Active Harinder Hernandez DO Active PREDNISONE 20 MG TAB 1 TID x 2 days, then 1 BID x 3 days, then 1 Daily x 3 days, then stop PREDNISONE 39659237317 No Longer Active John Montemayor APRN Active LEVAQUIN 500 MG TAB 1 tablet by mouth daily LEVOFLOXACIN 67856412234 No Longer Active Derrickmerikvng Sim MCCRAY Active NEURONTIN 300 MG CAP 1 cap by mouth three times daily for restless leg 06/22 GABAPENTIN 41936225758 No Longer Active Harinder Hernandez DO Active BENZONATATE 100 MG CAPS 1 cap po TID PRN BENZONATATE 15213597692 No Longer Active Harinder Hernandez DO Active MONTELUKAST SODIUM 10 MG TABS 1 tab po in the evening MONTELUKAST SODIUM 36077498980 No Longer Active Harinder Hernandez DO Active MUPIROCIN 2 % OINT apply to affected area BID x 14 days MUPIROCIN 08683808483 No Longer Active Harinder Hernandez DO Active TYLENOL EXTRA STRENGTH 500 MG TABS as needed ACETAMINOPHEN 77886417279 No Longer Active Harinder Hernandez DO Active PREDNISONE 10 MG TABS 1 tab po daily PREDNISONE 91645241070 No Longer Active Harinder Hernandez DO Active PREDNISONE 20 MG TAB 2 tabs daily for 4 days, 1 tab daily for 4 days, 1/2 tab daily for 4 days PREDNISONE 37130053863 No Longer Active Harinder Hernandez DO Active AZITHROMYCIN 250 MG TABS 2 po qd x 1 day, then 1 po qd x 4 days AZITHROMYCIN 01771778172 No Longer Active Harinder Hernandez DO Active PREDNISONE 20 MG TAB 3 tabs today, then 1 tab twice daily for 3 day, then one daily for three days PREDNISONE 96319007971 No Longer Active Harinder Hernandez DO Active NIFEDIAC CC 30 MG [id number] 1 tablet daily for raynaud's syndrome NIFEDIPINE 31985113685 No Longer Active Tawnya Pardo MA Active AMBIEN 10 MG TAB 1/2 tab by mouth at bedtime as needed for sleep ZOLPIDEM TARTRATE 46627644015 Active Kortney Mccain Active CLONAZEPAM 1 MG TABS 1 tablet at bedtime for insomnia and restless legs 09/14 CLONAZEPAM 80139300020 Active Harinder Hernandez DO Active CLONAZEPAM 0.5 MG TABS 1 tab po daily CLONAZEPAM 01886195569 No Longer Active Harinder Hernandez DO Active PREDNISONE 10 MG TAB 1 tablet daily for COPD PREDNISONE 06105257766 Active Harinder Hernandez DO Active PROAIR HFA 108 (90 BASE) MCG/ACT AERS 2 puffs four times a day as needed 2012 ALBUTEROL SULFATE 62566896600 Active Harinder Hernandez DO Active FLOVENT HFA 110 MCG/ACT AERO 2 puffs inhaled b.i.d. FLUTICASONE PROPIONATE HFA 67903125934 Active Kortney Mccain Active ACIPHEX 20 MG TBEC 1 tab po daily RABEPRAZOLE SODIUM 86168699820 Active Kaylah Newberry Active CLONAZEPAM 0.5 MG TABS 1 tab po daily CLONAZEPAM 0.5 MG TABS 036618 CLONAZEPAM Inactive PREDNISONE 20 MG TAB 3 tabs today, then 1 tab twice daily for 3 day, then one daily for three days PREDNISONE 20 MG TAB 299811 PREDNISONE Inactive PREDNISONE 20 MG TAB 2 tabs daily for 4 days, 1 tab daily for 4 days, 1/2 tab daily for 4 days PREDNISONE 20 MG TAB 852455 PREDNISONE Inactive PREDNISONE 10 MG TABS 1 tab po daily PREDNISONE 10 MG TABS 997628 PREDNISONE Inactive TYLENOL EXTRA STRENGTH 500 MG TABS as needed TYLENOL EXTRA STRENGTH 500 MG TABS 410387 ACETAMINOPHEN Inactive MUPIROCIN 2 % OINT apply to affected area BID x 14 days MUPIROCIN 2 % OINT 960774 MUPIROCIN Inactive MONTELUKAST SODIUM 10 MG TABS 1 tab po in the evening MONTELUKAST SODIUM 10 MG TABS 20010818 MONTELUKAST SODIUM Inactive BENZONATATE 100 MG CAPS 1 cap po TID PRN BENZONATATE 100 MG CAPS 006022 BENZONATATE Inactive NEURONTIN 300 MG CAP 1 cap by mouth three times daily for restless leg 06/22 NEURONTIN 300 MG CAP 275224 GABAPENTIN Inactive LEVAQUIN 500 MG TAB 1 tablet by mouth daily LEVAQUIN 500 MG TAB 101831 LEVOFLOXACIN Inactive PREDNISONE 20 MG TAB 1 TID x 2 days, then 1 BID x 3 days, then 1 Daily x 3 days, then stop PREDNISONE 20 MG TAB 579700 PREDNISONE Inactive POTASSIUM CHLORIDE ER 10 MEQ CR-TABS take 1 tab po daily POTASSIUM CHLORIDE ER 10 MEQ CR-TABS POTASSIUM CHLORIDE Inactive PREDNISONE 20 MG TAB 1 tab twice daily for 3 day, then one daily for three days PREDNISONE 20 MG TAB 695079 PREDNISONE Inactive TESSALON PERLES 100 MG CAP 1 to 2 tablets by mouth 3 times daily as needed for cough TESSALON PERLES 100 MG CAP 160082 BENZONATATE Inactive POTASSIUM CHLORIDE CR 10 MEQ CPCR 1 capsule by mouth daily 02/14 POTASSIUM CHLORIDE CR 10 MEQ CPCR POTASSIUM CHLORIDE Inactive NITROSTAT 0.4 MG SUBL 1 tab under tongueas needed for chest pain ( may take 3 total, 5 min apart, then call 911) NITROSTAT 0.4 MG SUBL 514194 NITROGLYCERIN Inactive LOVASTATIN 40 MG TABS 1 pill by mouth nightly for cholesterol LOVASTATIN 40 MG TABS 678201 LOVASTATIN Inactive CEFDINIR 300 MG ORAL CAPS take 1 cap po bid x 10 days CEFDINIR 300 MG ORAL CAPS 017648 CEFDINIR Inactive ACEBUTOLOL HCL 200 MG CAPS 1 cap in the morning and 2 caps in the evening ACEBUTOLOL HCL 200 MG CAPS 303688 ACEBUTOLOL HCL Inactive VENTOLIN HFA 108 (90 BASE) MCG/ACT AERS 2 -4 puffs four times a day PRN 2013 VENTOLIN HFA 108 (90 BASE) MCG/ACT AERS ALBUTEROL SULFATE Inactive LEVAQUIN 500 MG ORAL TABS Take 1 tab po daily x 8 days LEVAQUIN 500 MG ORAL TABS 220387 LEVOFLOXACIN Inactive PREDNISONE 20 MG TAB 2 tabs daily for 4 days, 1 tab daily for 4 days, 1/2 tab daily for 4 days PREDNISONE 20 MG TAB 115553 PREDNISONE Inactive LOVASTATIN 40 MG ORAL TABS Take 1 tab po every hs LOVASTATIN 40 MG ORAL TABS 231303 LOVASTATIN Inactive DILAUDID 2 MG ORAL TABS Take 1/2 tab po every 4 hours as needed for pain 2014 DILAUDID 2 MG ORAL TABS 961470 HYDROMORPHONE HCL Inactive AMITRIPTYLINE HCL 25 MG ORAL TABS 1 q hs prn AMITRIPTYLINE HCL 25 MG ORAL TABS 972343 AMITRIPTYLINE HCL Inactive MECLIZINE HCL 25 MG TAB 1 tablet three times daily for 3 days, then 1/2 tab three times daily for 3 days. MECLIZINE HCL 25 MG TAB 194335 MECLIZINE HCL Inactive AMLODIPINE BESYLATE 5 MG ORAL TABS Take 1 tab po daily AMLODIPINE BESYLATE 5 MG ORAL TABS 819536 AMLODIPINE BESYLATE Inactive TOPIRAMATE 25 MG TABS 1 tab po BID TOPIRAMATE 25 MG TABS 014785 TOPIRAMATE Inactive PREDNISONE 20 MG TAB 1 tablet twice daily for 2 days, then 1 tablet once daily for 2 days PREDNISONE 20 MG TAB 984204 PREDNISONE Inactive PREDNISONE 20 MG TAB 1 tab twice daily for 3 day, then one daily for three days PREDNISONE 20 MG TAB 441774 PREDNISONE Inactive NIFEDIPINE ER 30 MG ORAL [id number] 1 daily NIFEDIPINE ER 30 MG ORAL [id number] NIFEDIPINE Inactive AMLODIPINE BESYLATE 5 MG TABS 1 tablet by mouth daily AMLODIPINE BESYLATE 5 MG TABS 964247 AMLODIPINE BESYLATE Inactive LASIX 20 MG TAB 1 tablet by mouth every morning LASIX 20 MG TAB 451165 FUROSEMIDE Inactive POTASSIUM CHLORIDE CR 10 MEQ CPCR 1 capsule BID POTASSIUM CHLORIDE CR 10 MEQ CPCR POTASSIUM CHLORIDE Inactive POTASSIUM CHLORIDE 20 MEQ ORAL PACK 1 tab po q day POTASSIUM CHLORIDE 20 MEQ ORAL PACK 4279740 POTASSIUM CHLORIDE Inactive AZITHROMYCIN 250 MG TABS 2 po qd x 1 day, then 1 po qd x 4 days AZITHROMYCIN 250 MG TABS 674687 AZITHROMYCIN Inactive AZITHROMYCIN 250 MG TABS 2 po qd x 1 day, then 1 po qd x 4 days AZITHROMYCIN 250 MG TABS 021865 AZITHROMYCIN Inactive PREDNISONE 20 MG TAB 2 po qd x 5 days PREDNISONE 20 MG TAB 896028 PREDNISONE Inactive Vital Signs Date Name Value [...] Panel - Chemistry sodium, serum 137 mmol/L 580-276 0136/01/03 potassium, serum 3.4 mmol/L 3.5-5.2 chloride, serum 102 mmol/L 98-107 carbon dioxide, venous blood 29.2 mmol/L 21.0-32.0 blood glucose 87 mg/dL 65-110 calcium, serum 8.5 mg/dL 8.5-10.1 urea nitrogen, blood 8 mg/dL 7-18 creatinine, serum 0.82 mg/dL 0.55-1.30 sodium, serum 140 mmol/L 251-095 1808/07/13 potassium, serum 3.2 mmol/L 3.5-5.2 chloride, serum 103 mmol/L 98-107 carbon dioxide, venous blood 26.9 mmol/L 21.0-32.0 blood glucose 93 mg/dL 65-110 calcium, serum 9.2 mg/dL 8.5-10.1 urea nitrogen, blood 13 mg/dL 7-18 creatinine, serum 0.84 mg/dL 0.60-1.30 sodium, serum 140 mmol/L 918-745 9346/08/21 potassium, serum 3.8 mmol/L 3.5-5.2 chloride, serum [...] ... - Chemistry sodium, serum 141 mmol/L 167-830 9999/08/07 carbon dioxide, venous blood 34.0 mmol/L 21.0-32.0 [...] 1.40 mg/dL 0.00-1.00 cholesterol, serum 192 mg/dL 642-807 4536/10/19 triglyceride, serum, fasting 71 mg/dL 30-200 HDL cholesterol, serum 72 mg/dL 32-60 LDL cholesterol, serum 106 mg/dL 0-130 Lab Report: MICROALB/CREAT W/RATIO - Chemistry albumin/creatinine ratio, urine < 30 mg/g mg/g{creat} 0-29 Lab Report: MICROALB/CREAT W/RATIO - Lab microalbumin, urine 10 0-19 Lab Report: THEOPHYLLINE - Toxicology theophylline level, serum 3.1 ug/mL 10.0-20.0 Encounters Code Encounter Date Provider Facility CPT-94531 Level 4 Est. Patient 14:45:25 CDT Harinder Hernandez [facility] CPT-24559 Level 4 Est. Patient 09:15:13 CDT Harinder Cr [facility] CPT-79058 Level 3 Est. Patient 11:51:58 CDT Harinder Hernandez [facility] CPT-84424 Level 3 Est. Patient 11:30:05 CDT Harinder Hernandez [facility] CPT-37084 Level 4 Est. Patient 10:19:23 CDT Harinder Hernandez [facility] CPT-74169 Level 3 Est. Patient 09:58:58 CDT Harinder Hernandez [facility] CPT-41989 Level 3 Est. Patient 12:37:21 CDT Harinder Hernandez [facility] CPT-68534 Level 3 Est. Patient 18:37:17 CDT Harinder Cr [facility] CPT-28802 Level 4 Est. Patient 11:15:54 CDT Nettieog Newberry APRN [facility] CPT-30593 Level 3 Est. Patient 16:42:24 CDT Harinder Cr [facility] CPT-16627 Level 3 Est. Patient 15:03:36 CDT Harinder Hernandez [facility] CPT-90658 Level 3 Est. Patient 15:03:20 CDT Harinder Cr [facility] CPT-33335 Level 3 Est. Patient 12:14:34 CDT Harinder Hernandez [facility] CPT-73322 Level 3 Est. Patient 13:47:15 CDT Harinder Hernandez [facility] CPT-08507 Level 3 Est. Patient 14:08:24 CDT Harinder Hernandez [facility] CPT-11525 Level 3 Est. Patient 10:07:[address] [facility] CPT-16266 Level 3 Est. Patient 10:06:59 CDT Harinder Hernandez [facility] CPT-18773 Level 3 Est. Patient 15:53:29 CDT Jae Morgan [facility] CPT-50931 Level 3 Est. Patient 17:19:04 CDT Harinder Hernandez [facility] CPT-25840 Level 3 Est. Patient 11:13:01 CDT Harinder Hernandez [facility] CPT-44350 Level 3 Est. Patient 09:03:58 CDT Harinder Hernandez [facility] CPT-92805 Level 3 Est. Patient 14:46:45 DOCUMENT SPECIALIST Harinder Hernandez [facility] CPT-87418 Level 3 Est. Patient 09:35:49 DOCUMENT SPECIALIST Harinder Hernandez [facility] CPT-16043 Level 3 Est. Patient 09:29:37 DOCUMENT SPECIALIST Harinder Hernandez [facility] CPT-85032 Level 3 Est. Patient 15:51:07 CDT Harinder Hernandez [facility] CPT-76502 Level 3 Est. Patient 18:13:13 CDT Harinder Hernandez [facility] CPT-59992 Level 3 Est. Patient 10:44:19 CDT Harinder Hernandez [facility] CPT-25696 Level 4 Est. Patient 10:07:19 DOCUMENT SPECIALIST Harinder Hernandez [facility] CPT-57464 Level 3 Est. Patient 15:59:32 DOCUMENT SPECIALIST Harinder Cr [facility] Procedures Code Procedure Name Date Entry Date Standard Description CPT-78838 Abd compl w upright - XRAY USE ONLY 14:48:09 CDT 02/18 CPT-27024 Port a cath flush 13:46:05 CDT CPT-54394 Hip, complete, 2-3 views - XRAY USE ONLY 10:28:40 CDT CPT-24567 BMP - LAB USE ONLY 16:45:09 DOCUMENT SPECIALIST CPT-42726 Port a cath flush 12:00:13 DOCUMENT SPECIALIST CPT-TCMM Transitional Care Mgmt-Moderate 11:20:16 DOCUMENT SPECIALIST CPT-28410 First Vx - Ix admin for Medicare patients 17:35:15 CDT CPT-71803 Fluzone Preservative Free Intramuscular Suspension 17:35 :15 CDT CPT-14573 Microalbumin - LAB USE ONLY 11:52:05 CDT CPT-TCMM Transitional Care Mgmt-Moderate 11:33:57 CDT CPT-92616 No Charge Offi Visit 14:11:29 CDT CPT-43427 Magnesium - LAB USE ONLY 10:45:44 CDT CPT-78076 Lipid - LAB USE ONLY 10:45:44 CDT CPT-46169 CBC - LAB USE ONLY 10:45:44 CDT CPT-17882 Venipuncture Draw Fee 10:45:43 CDT CPT-31712 Venipuncture Draw Fee 18:21:27 CDT CPT-JTINJ Asp/Joint Injection 18:38:04 CDT CPT-40103 Immunization Each Additional Inj 17:38:04 CDT CPT-17609 Immunization Single Admin 17:38:04 CDT CPT-13868 Prevnar 13 17:38:04 CDT CPT-74805 Fluzone Quadrivalent preservative free (>=3yrs.) 17:38: 04 CDT CPT-30978 No Charge Offi Visit 11:14:03 CDT CPT-97113 Chest 2V Frontal and Lat 14:00:18 CDT CPT-OV Office Visit 16:10:28 CDT CPT-JTINJ Asp/Joint Injection 09:03:57 CDT CPT-Cryo Cryotherapy 09:35:49 DOCUMENT SPECIALIST CPT-JTINJ Asp/Joint Injection 09:34:45 DOCUMENT SPECIALIST CPT-J2930 Solu Medrol 125 mg (Methyl Prednisolone Sodium Succinate) 20:37:27 CDT CPT-91408 Abx/Therapy Injection 20:37:27 CDT CPT-33560 Port a cath flush 08:15:51 CDT CPT-18144 Port a cath flush 09:54:16 CDT CPT-60375 Port a cath flush 09:38:02 CDT CPT-28402 Port a cath flush 11:00:27 DOCUMENT SPECIALIST
--- OUTSIDE RECORDS SUMMARY | 2017-12-29 02:19 | XMS REPORT | Clinical Summary ---
Author Author Admin, QIE Organization [facility] [employer] Address Unknown Phone Unavailable Allergies, Adverse [...] then one daily for three days PREDNISONE 52042821355 Active Harinder Hernandez DO Active PREDNISONE 20 MG TAB 1 tablet twice daily for 2 days, then 1 tablet once daily for 2 days PREDNISONE 41212665513 No Longer Active Harinder Hernandez DO Active ASMANEX 120 METERED DOSES 220 MCG/INH INH AEPB 2 puffs orally twice daily MOMETASONE FUROATE 36223011244 Active Jeri Sosa RPT,RMA Active NIFEDIPINE ER 30 MG ORAL [id number] 1 daily NIFEDIPINE 70369420481 Active Tawnya Pardo MA Active TOPIRAMATE 25 MG TABS 1 tab po BID TOPIRAMATE 76720527402 No Longer Active Nettie Newberry APRN Active AMLODIPINE BESYLATE 5 MG ORAL TABS Take 1 tab po daily AMLODIPINE BESYLATE 65420953559 No Longer Active Nettie Newberry APRN Active MECLIZINE HCL 25 MG TAB 1 tablet three times daily for 3 days, then 1/2 tab three times daily for 3 days. MECLIZINE HCL 30463832177 No Longer Active Nettie Newberry APRN Active AMITRIPTYLINE HCL 25 MG ORAL TABS 1 q hs prn AMITRIPTYLINE HCL 81786739455 No Longer Active Nettie Newberry APRN Active DILAUDID 2 MG ORAL TABS Take 1/2 tab po every 4 hours as needed for pain 2014 HYDROMORPHONE HCL 44104751143 No Longer Active Nettie Newberry APRN Active CLOPIDOGREL BISULFATE 75 MG ORAL TABS 1 tab by mouth once daily CLOPIDOGREL BISULFATE 69109365479 Active Jeri Sosa RPT,RMA Active ATORVASTATIN CALCIUM 10 MG ORAL TABS 1 at bedtime ATORVASTATIN CALCIUM 79127419750 Active Jeri Sosa RPT,RMA Active LOVASTATIN 40 MG ORAL TABS Take 1 tab po every hs LOVASTATIN 90044962610 No Longer Active Harinder Hernandez DO Active PREDNISONE 20 MG TAB 2 tabs daily for 4 days, 1 tab daily for 4 days, 1/2 tab daily for 4 days PREDNISONE 28698178823 No Longer Active Harinder Hernandez DO Active LEVAQUIN 500 MG ORAL TABS Take 1 tab po daily x 8 days LEVOFLOXACIN 77321122809 No Longer Active Harinder Hernandez DO Active VENTOLIN HFA 108 (90 BASE) MCG/ACT AERS 2 -4 puffs four times a day PRN 2013 ALBUTEROL SULFATE 59115270743 No Longer Active Jeri Sosa RPT,RMA Active ACEBUTOLOL HCL 200 MG CAPS 1 cap in the morning and 2 caps in the evening ACEBUTOLOL HCL 71693812706 No Longer Active Harinder Hernandez DO Active CEFDINIR 300 MG ORAL CAPS take 1 cap po bid x 10 days CEFDINIR 56164187920 No Longer Active Harinder Hernandez DO Active LOVASTATIN 40 MG TABS 1 pill by mouth nightly for cholesterol LOVASTATIN 33882257943 No Longer Active Nettie Newberry APRN Active NITROSTAT 0.4 MG SUBL 1 tab under tongueas needed for chest pain ( may take 3 total, 5 min apart, then call 911) NITROGLYCERIN 50785680028 No Longer Active Nettie Newberry APRN Active POTASSIUM CHLORIDE CR 10 MEQ CPCR 1 capsule by mouth daily 02/14 POTASSIUM CHLORIDE 18814795208 No Longer Active Nettie Newberry APRN Active TESSALON PERLES 100 MG CAP 1 to 2 tablets by mouth 3 times daily as needed for cough BENZONATATE 05589844138 No Longer Active Nettie Newberry APRN Active THEOPHYLLINE ER 200 MG ORAL [id number] Take 1 tab every 12 hours THEOPHYLLINE 27271595369 Active Jeri Sosa RPT,RMA Active PREDNISONE 20 MG TAB 2 po qd x 5 days PREDNISONE 97171979374 No Longer Active Jae Morgan MD Active AZITHROMYCIN 250 MG TABS 2 po qd x 1 day, then 1 po qd x 4 days AZITHROMYCIN 85446106429 No Longer Active Jae Morgan MD Active PREDNISONE 20 MG TAB 1 tab twice daily for 3 day, then one daily for three days PREDNISONE 77056420561 No Longer Active Jae Morgan MD Active SINGULAIR 10 MG TABS 1 pill by mouth every evening for breathing. MONTELUKAST SODIUM 61448607727 Active Tawnya Pardo MA Active TYLENOL 325 MG TAB 3 by mouth q4h as needed ACETAMINOPHEN 04428470048 Active Harinder Hernandez DO Active POTASSIUM CHLORIDE ER 10 MEQ CR-TABS take 1 tab po daily POTASSIUM CHLORIDE 48935841512 No Longer Active Harinder Hernandez DO Active PREDNISONE 20 MG TAB 1 TID x 2 days, then 1 BID x 3 days, then 1 Daily x 3 days, then stop PREDNISONE 87635631187 No Longer Active Jillina Frazell BINDING DYER Active LEVAQUIN 500 MG TAB 1 tablet by mouth daily LEVOFLOXACIN 62826241280 No Longer Active Jillina Frazell BINDING DYER Active NEURONTIN 300 MG CAP 1 cap by mouth three times daily for restless leg 06/22 GABAPENTIN 50417747251 No Longer Active Harinder Hernandez DO Active BENZONATATE 100 MG CAPS 1 cap po TID PRN BENZONATATE 18210172435 No Longer Active Harinder Hernandez DO Active MONTELUKAST SODIUM 10 MG TABS 1 tab po in the evening MONTELUKAST SODIUM 76927957448 No Longer Active Harinder Hernandez DO Active MUPIROCIN 2 % OINT apply to affected area BID x 14 days MUPIROCIN 88875514562 No Longer Active Harinder Hernandez DO Active TYLENOL EXTRA STRENGTH 500 MG TABS as needed ACETAMINOPHEN 06095802383 No Longer Active Harinder Hernandez DO Active PREDNISONE 10 MG TABS 1 tab po daily PREDNISONE 06456727974 No Longer Active Harinder Hernandez DO Active PREDNISONE 20 MG TAB 2 tabs daily for 4 days, 1 tab daily for 4 days, 1/2 tab daily for 4 days PREDNISONE 86340652537 No Longer Active Harinder Hernandez DO Active AZITHROMYCIN 250 MG TABS 2 po qd x 1 day, then 1 po qd x 4 days AZITHROMYCIN 57792971388 No Longer Active Harinder Hernandez DO Active PREDNISONE 20 MG TAB 3 tabs today, then 1 tab twice daily for 3 day, then one daily for three days PREDNISONE 74482726246 No Longer Active Harinder Hernandez DO Active NIFEDIAC CC 30 MG [id number] 1 tablet daily for raynaud's syndrome NIFEDIPINE 91951780911 No Longer Active Tawnya Pardo MA Active AMBIEN 10 MG TAB 1/2 tab by mouth at bedtime as needed for sleep ZOLPIDEM TARTRATE 52556024326 Active Harindre Hernandez DO Active CLONAZEPAM 1 MG TABS 1 tablet at bedtime for insomnia and restless legs 09/14 CLONAZEPAM 37280267554 Active Jeri Sosa RPT,RMA Active CLONAZEPAM 0.5 MG TABS 1 tab po daily CLONAZEPAM 04541206703 No Longer Active Harinder Hernandez DO Active PREDNISONE 10 MG TAB 1 tablet daily for COPD PREDNISONE 89125167305 Active Tawnya Pardo MA Active PROAIR HFA 108 (90 BASE) MCG/ACT AERS 2 puffs four times a day as needed 2012 ALBUTEROL SULFATE 87794073889 Active Tawnya Pardo MA Active FLOVENT HFA 110 MCG/ACT AERO 2 puffs inhaled b.i.d. FLUTICASONE PROPIONATE HFA 09176374299 Active Tawnya Pardo MA Active EPIPEN 0.3 MG/0.3ML URIEL DIRECTED EPINEPHRINE Active Jeri Sosa RPT,RMA Active ACIPHEX 20 MG TBEC 1 tab po daily RABEPRAZOLE SODIUM 57201939825 Active Tawnya Pardo MA Active CLONAZEPAM 0.5 MG TABS 1 tab po daily CLONAZEPAM 0.5 MG TABS 417649 CLONAZEPAM Inactive PREDNISONE 20 MG TAB 3 tabs today, then 1 tab twice daily for 3 day, then one daily for three days PREDNISONE 20 MG TAB 095745 PREDNISONE Inactive PREDNISONE 20 MG TAB 2 tabs daily for 4 days, 1 tab daily for 4 days, 1/2 tab daily for 4 days PREDNISONE 20 MG TAB 739869 PREDNISONE Inactive PREDNISONE 10 MG TABS 1 tab po daily PREDNISONE 10 MG TABS 591217 PREDNISONE Inactive TYLENOL EXTRA STRENGTH 500 MG TABS as needed TYLENOL EXTRA STRENGTH 500 MG TABS 701972 ACETAMINOPHEN Inactive MUPIROCIN 2 % OINT apply to affected area BID x 14 days MUPIROCIN 2 % OINT 192307 MUPIROCIN Inactive MONTELUKAST SODIUM 10 MG TABS 1 tab po in the evening MONTELUKAST SODIUM 10 MG TABS 20010818 MONTELUKAST SODIUM Inactive BENZONATATE 100 MG CAPS 1 cap po TID PRN BENZONATATE 100 MG CAPS 475904 BENZONATATE Inactive NEURONTIN 300 MG CAP 1 cap by mouth three times daily for restless leg 06/22 NEURONTIN 300 MG CAP 097879 GABAPENTIN Inactive LEVAQUIN 500 MG TAB 1 tablet by mouth daily LEVAQUIN 500 MG TAB 676740 LEVOFLOXACIN Inactive PREDNISONE 20 MG TAB 1 TID x 2 days, then 1 BID x 3 days, then 1 Daily x 3 days, then stop PREDNISONE 20 MG TAB 082083 PREDNISONE Inactive POTASSIUM CHLORIDE ER 10 MEQ CR-TABS take 1 tab po daily POTASSIUM CHLORIDE ER 10 MEQ CR-TABS POTASSIUM CHLORIDE Inactive PREDNISONE 20 MG TAB 1 tab twice daily for 3 day, then one daily for three days PREDNISONE 20 MG TAB 389854 PREDNISONE Inactive TESSALON PERLES 100 MG CAP 1 to 2 tablets by mouth 3 times daily as needed for cough TESSALON PERLES 100 MG CAP 681009 BENZONATATE Inactive POTASSIUM CHLORIDE CR 10 MEQ [...] nightly for cholesterol LOVASTATIN 40 MG TABS 202308 LOVASTATIN Inactive CEFDINIR 300 MG ORAL CAPS take 1 cap po bid x 10 days CEFDINIR 300 MG ORAL CAPS 220097 CEFDINIR Inactive ACEBUTOLOL HCL 200 MG CAPS 1 cap in the morning and 2 caps in the evening ACEBUTOLOL HCL 200 MG CAPS 536889 ACEBUTOLOL HCL Inactive VENTOLIN HFA 108 (90 BASE) MCG/ACT AERS 2 -4 puffs four times a day PRN 2013 VENTOLIN HFA 108 (90 BASE) MCG/ACT AERS ALBUTEROL SULFATE Inactive LEVAQUIN 500 MG ORAL TABS Take 1 tab po daily x 8 days LEVAQUIN 500 MG ORAL TABS 178743 LEVOFLOXACIN Inactive PREDNISONE 20 MG TAB 2 tabs daily for 4 days, 1 tab daily for 4 days, 1/2 tab daily for 4 days PREDNISONE 20 MG TAB 328981 PREDNISONE Inactive LOVASTATIN 40 MG ORAL TABS Take 1 tab po every hs LOVASTATIN 40 MG ORAL TABS 619270 LOVASTATIN Inactive DILAUDID 2 MG ORAL TABS Take 1/2 tab po every 4 hours as needed for pain 2014 DILAUDID 2 MG ORAL TABS 816481 HYDROMORPHONE HCL Inactive AMITRIPTYLINE HCL 25 MG ORAL TABS 1 q hs prn AMITRIPTYLINE HCL 25 MG ORAL TABS 220466 AMITRIPTYLINE HCL Inactive MECLIZINE HCL 25 MG TAB 1 tablet three times daily for 3 days, then 1/2 tab three times daily for 3 days. MECLIZINE HCL 25 MG TAB 034365 MECLIZINE HCL Inactive AMLODIPINE BESYLATE 5 MG ORAL TABS Take 1 tab po daily AMLODIPINE BESYLATE 5 MG ORAL TABS 807950 AMLODIPINE BESYLATE Inactive TOPIRAMATE 25 MG TABS 1 tab po BID TOPIRAMATE 25 MG TABS 668456 TOPIRAMATE Inactive PREDNISONE 20 MG TAB 1 tablet twice daily for 2 days, then 1 tablet once daily for 2 days PREDNISONE 20 MG TAB 166330 PREDNISONE Inactive AZITHROMYCIN 250 MG TABS 2 po qd x 1 day, then 1 po qd x 4 days AZITHROMYCIN 250 MG TABS 4537588 AZITHROMYCIN Inactive AZITHROMYCIN 250 MG TABS 2 po qd x 1 day, then 1 po qd x 4 days AZITHROMYCIN 250 MG TABS 6802247 AZITHROMYCIN Inactive PREDNISONE 20 MG TAB 2 po qd x 5 days PREDNISONE 20 MG TAB 366845 PREDNISONE Inactive Vital Signs Date Name Value [...] Panel - Chemistry sodium, serum 138 mmol/L 426-522 2444/09/24 potassium, serum 3.5 mmol/L 3.5-5.2 chloride, serum [...] 142-424 Encounters Code Encounter Date Provider Facility CPT-41097 Level 3 Est. Patient 09:58:58 CDT Harinder Cr [facility] CPT-47536 Level 3 Est. Patient 12:37:21 CDT Harinder Cr [facility] CPT-63158 Level 3 Est. Patient 18:37:17 CDT Harinder Cr [facility] CPT-37025 Level 4 Est. Patient 11:15:54 CDT Nettie Rohith [facility] CPT-20327 Level 3 Est. Patient 16:42:24 CDT Harinder Cr [facility] CPT-53930 Level 3 Est. Patient 15:03:36 CDT Harinder Cr [facility] CPT-23112 Level 3 Est. Patient 15:03:20 CDT Harinder Cr [facility] CPT-14423 Level 3 Est. Patient 12:14:34 CDT Harinder Cr [facility] CPT-99431 Level 3 Est. Patient 13:47:15 CDT Harinder Cr [facility] CPT-28128 Level 3 Est. Patient 14:08:24 [facility] Level [facility] Est. Patient 10:07:15 CDT Harinder Hernandez [facility] CPT-10382 Level 3 Est. Patient 10:06:59 CDT Harinder Hernandez [facility] CPT-95178 Level 3 Est. Patient 15:53:29 CDT Jae Morgan MD [facility] CPT-10349 Level 3 Est. Patient 17:19:04 CDT Harinder Hernandez [facility] CPT-75087 Level 3 Est. Patient 11:13:01 CDT Harinder Hernandez [facility] CPT-13605 Level 3 Est. Patient 09:03:58 CDT Harinder Hernandez [facility] CPT-99821 Level 3 Est. Patient 14:46:45 TRANSPORTATION REFRIGERATION TECHNICIAN Harinder Hernandez [facility] CPT-55850 Level 3 Est. Patient 09:35:49 TRANSPORTATION REFRIGERATION TECHNICIAN Harinder Hernandez [facility] CPT-34425 Level 3 Est. Patient 09:29:37 TRANSPORTATION REFRIGERATION TECHNICIAN Harinder Hernandez [facility] CPT-67188 Level 3 Est. Patient 15:51:07 CDT Harinder Hernandez [facility] CPT-88696 Level 3 Est. Patient 18:13:13 CDT Harinder Hernandez [facility] CPT-71804 Level 3 Est. Patient 10:44:19 CDT Harinder Hernandez [facility] CPT-63084 Level 4 Est. Patient 10:07:19 TRANSPORTATION REFRIGERATION TECHNICIAN Harinder Hernandez [facility] CPT-00237 Level 3 Est. Patient 15:59:32 TRANSPORTATION REFRIGERATION TECHNICIAN Harinder Hernandez [facility] Procedures Code Procedure Name Date Entry Date Standard Description CPT-87429 Magnesium - LAB USE ONLY 10:45:44 CDT CPT-42618 Lipid - LAB USE ONLY 10:45:44 CDT CPT-05645 CBC - LAB USE ONLY 10:45:44 CDT CPT-91870 Venipuncture Draw Fee 10:45:43 CDT CPT-05855 Venipuncture Draw Fee 18:21:27 CDT CPT-JTINJ Asp/Joint Injection 18:38:04 CDT CPT-52153 Immunization Each Additional Inj 17:38:04 CDT CPT-35596 Immunization Single Admin 17:38:04 CDT CPT-51612 Prevnar 13 17:38:04 CDT CPT-75114 Fluzone Quadrivalent preservative free (>=3yrs.) 17:38: 04 CDT CPT-66621 No Charge Offi Visit 11:14:03 CDT CPT-27976 Chest 2V Frontal and Lat 14:00:18 CDT CPT-OV Office Visit 16:10:28 CDT CPT-JTINJ Asp/Joint Injection 09:03:57 CDT CPT-Cryo Cryotherapy 09:35:49 TRANSPORTATION REFRIGERATION TECHNICIAN CPT-JTINJ Asp/Joint Injection 09:34:45 TRANSPORTATION REFRIGERATION TECHNICIAN CPT-J2930 Solu Medrol 125 mg (Methyl Prednisolone Sodium Succinate) 20:37:27 CDT CPT-07752 Abx/Therapy Injection 20:37:27 CDT CPT-34842 Port a cath flush 08:15:51 CDT CPT-08939 Port a cath flush 09:54:16 CDT CPT-30622 Port a cath flush 09:38:02 CDT CPT-86021 Port a cath flush 11:00:27 TRANSPORTATION REFRIGERATION TECHNICIAN
--- OUTSIDE RECORDS SUMMARY | 2017-12-29 02:21 | XMS REPORT | Clinical Summary ---
Author Author Admin, QIE Organization [facility] Address Unknown Phone Unavailable Allergies, Adverse Reactions, [...] Active Harinder Hernandez DO DOXYCYCLINE Critical Active Harindre Hernandez DO CODEINE Critical Active Harinder Hernandez [...] 1 tablet by mouth daily POTASSIUM CHLORIDE 37076596589 Active Ciera Pimentel Active ALBUTEROL SULFATE 0.083 % NEBU SOLN 1 vial neb q 4hrs PRN Wheezing ALBUTEROL SULFATE 08722710595 Active Harinder Hernandez Active FLOVENT HFA 110 MCG/ACT AERO 2 puffs inhaled b.i.d. FLUTICASONE PROPIONATE HFA 03557281622 Active Harinder Shaye Hernandez DO Active POTASSIUM CHLORIDE CR 10 MEQ CPCR 1 capsule by mouth daily POTASSIUM CHLORIDE 09155580143 Active Harinder Hernandez Active EPIPEN 2-BRUNA 0.3 MG/0.3ML INJ SOAJ 1 INJ NEEDED EPINEPHRINE 07051955367 Active Harinder Hernandez DO Active PREDNISONE 20 MG TAB 1 tab twice daily for 3 day, then one daily for three days PREDNISONE 44897615022 No Longer Active Harinder Hernandez DO Active PREDNISONE 20 MG TAB 1 tablet twice daily for 2 days, then 1 tablet once daily for 2 days PREDNISONE 04112869240 No Longer Active Harinder Hernandez DO Active ASMANEX 120 METERED DOSES 220 MCG/INH INH AEPB 2 puffs orally twice daily MOMETASONE FUROATE 41159851570 Active Jeri Sosa RPT,RMA Active NIFEDIPINE ER 30 MG ORAL [id number] 1 daily NIFEDIPINE 95986603303 Active Harinder Hernandez DO Active TOPIRAMATE 25 MG TABS 1 tab po BID TOPIRAMATE 59212556035 No Longer Active Nettie Newberry APRN Active AMLODIPINE BESYLATE 5 MG ORAL TABS Take 1 tab po daily AMLODIPINE BESYLATE 88965747897 No Longer Active Nettie Newberry APRN Active MECLIZINE HCL 25 MG TAB 1 tablet three times daily for 3 days, then 1/2 tab three times daily for 3 days. MECLIZINE HCL 28086223167 No Longer Active Nettieog Newberry APRN Active AMITRIPTYLINE HCL 25 MG ORAL TABS 1 q hs prn AMITRIPTYLINE HCL 13270977864 No Longer Active Nettieog Newberry APRN Active DILAUDID 2 MG ORAL TABS Take 1/2 tab po every 4 hours as needed for pain 2014 HYDROMORPHONE HCL 20464911287 No Longer Active Nettie Newberry APRN Active CLOPIDOGREL BISULFATE 75 MG ORAL TABS 1 tab by mouth once daily CLOPIDOGREL BISULFATE 83135349995 Active Tawnya Pardo MA Active ATORVASTATIN CALCIUM 10 MG ORAL TABS 1 at bedtime ATORVASTATIN CALCIUM 04612809863 Active Tawnya Pardo MA Active LOVASTATIN 40 MG ORAL TABS Take 1 tab po every hs LOVASTATIN 63341664603 No Longer Active Harinder Hernandez DO Active PREDNISONE 20 MG TAB 2 tabs daily for 4 days, 1 tab daily for 4 days, 1/2 tab daily for 4 days PREDNISONE 92840222751 No Longer Active Harinder Hernandez DO Active LEVAQUIN 500 MG ORAL TABS Take 1 tab po daily x 8 days LEVOFLOXACIN 44850669602 No Longer Active Harinder Hernandez DO Active VENTOLIN HFA 108 (90 BASE) MCG/ACT AERS 2 -4 puffs four times a day PRN 2013 ALBUTEROL SULFATE 67587554786 No Longer Active Jeri Sosa RPT,RMA Active ACEBUTOLOL HCL 200 MG CAPS 1 cap in the morning and 2 caps in the evening ACEBUTOLOL HCL 02276319656 No Longer Active Harinder Hernandez DO Active CEFDINIR 300 MG ORAL CAPS take 1 cap po bid x 10 days CEFDINIR 71330521959 No Longer Active Harinder Hernandez DO Active LOVASTATIN 40 MG TABS 1 pill by mouth nightly for cholesterol LOVASTATIN 65095444525 No Longer Active Nettie Rohith MAHENDRA Active NITROSTAT 0.4 MG SUBL 1 tab under tongueas needed for chest pain ( may take 3 total, 5 min apart, then call 911) NITROGLYCERIN 48264239003 No Longer Active Nettie Rohith MAHENDRA Active POTASSIUM CHLORIDE CR 10 MEQ CPCR 1 capsule by mouth daily 02/14 POTASSIUM CHLORIDE 96132306428 [facility] Active TESSALON PERLES 100 MG CAP 1 to 2 tablets by mouth 3 times daily as needed for cough BENZONATATE 17884819031 No Longer Active Nettie Newberry APRN Active THEOPHYLLINE ER 200 MG ORAL [id number] Take 1 tab every 12 hours THEOPHYLLINE 87061802411 Active Tawnya Pardo MA Active PREDNISONE 20 MG TAB 2 po qd x 5 days PREDNISONE 98230287460 No Longer Active Jae Morgan MD Active AZITHROMYCIN 250 MG TABS 2 po qd x 1 day, then 1 po qd x 4 days AZITHROMYCIN 75766773256 No Longer Active Jae Morgan MD Active PREDNISONE 20 MG TAB 1 tab twice daily for 3 day, then one daily for three days PREDNISONE 84844811587 No Longer Active Jae Morgan MD Active SINGULAIR 10 MG TABS 1 pill by mouth every evening for breathing. MONTELUKAST SODIUM 05962969254 Active Tawnya Pardo MA Active TYLENOL 325 MG TAB 3 by mouth q4h as needed ACETAMINOPHEN 71825045464 Active Harinder Hernandez DO Active POTASSIUM CHLORIDE ER 10 MEQ CR-TABS take 1 tab po daily POTASSIUM CHLORIDE 82858265944 No Longer Active Harinder Hernandez DO Active PREDNISONE 20 MG TAB 1 TID x 2 days, then 1 BID x 3 days, then 1 Daily x 3 days, then stop PREDNISONE 89197916993 No Longer Active John Montemayor APRN Active LEVAQUIN 500 MG TAB 1 tablet by mouth daily LEVOFLOXACIN 50368356944 No Longer Active John Montemayor SIZE MAKER Active NEURONTIN 300 MG CAP 1 cap by mouth three times daily for restless leg 06/22 GABAPENTIN 11537658751 No Longer Active Harinder Hernandez DO Active BENZONATATE 100 MG CAPS 1 cap po TID PRN BENZONATATE 72793205496 No Longer Active Harinder Hernandez DO Active MONTELUKAST SODIUM 10 MG TABS 1 tab po in the evening MONTELUKAST SODIUM 36354947800 No Longer Active Harinder Hernandez DO Active MUPIROCIN 2 % OINT apply to affected area BID x 14 days MUPIROCIN 17284029556 No Longer Active Harinder Hernandez DO Active TYLENOL EXTRA STRENGTH 500 MG TABS as needed ACETAMINOPHEN 59296228050 No Longer Active Harinder Hernandez DO Active PREDNISONE 10 MG TABS 1 tab po daily PREDNISONE 37446885769 No Longer Active Harinder Hernandez DO Active PREDNISONE 20 MG TAB 2 tabs daily for 4 days, 1 tab daily for 4 days, 1/2 tab daily for 4 days PREDNISONE 33556150902 No Longer Active Harinder Hernandez DO Active AZITHROMYCIN 250 MG TABS 2 po qd x 1 day, then 1 po qd x 4 days AZITHROMYCIN 65002104309 No Longer Active Harinder Hernandez DO Active PREDNISONE 20 MG TAB 3 tabs today, then 1 tab twice daily for 3 day, then one daily for three days PREDNISONE 15508870054 No Longer Active Harinder Hernandez DO Active NIFEDIAC CC 30 MG [id number] 1 tablet daily for raynaud's syndrome NIFEDIPINE 84839317854 No Longer Active Tawnya Pardo MA Active AMBIEN 10 MG TAB 1/2 tab by mouth at bedtime as needed for sleep ZOLPIDEM TARTRATE 22719798726 Active Harinder Hernandez DO Active CLONAZEPAM 1 MG TABS 1 tablet at bedtime for insomnia and restless legs 09/14 CLONAZEPAM 40389117323 Active Harinder Hernandez DO Active CLONAZEPAM 0.5 MG TABS 1 tab po daily CLONAZEPAM 86015873697 No Longer Active Harinder Hernandez DO Active PREDNISONE 10 MG TAB 1 tablet daily for COPD PREDNISONE 94503895815 Active Tawnya Pardo MA Active PROAIR HFA 108 (90 BASE) MCG/ACT AERS 2 puffs four times a day as needed 2012 ALBUTEROL SULFATE 96256410564 Active Tawnya Pardo MA Active FLOVENT HFA 110 MCG/ACT AERO 2 puffs inhaled b.i.d. FLUTICASONE PROPIONATE HFA 89926983142 Active Tawnya Pardo MA Active ACIPHEX 20 MG TBEC 1 tab po daily RABEPRAZOLE SODIUM 07740271174 Active Kaylah Newberry Active CLONAZEPAM 0.5 MG TABS 1 tab po daily CLONAZEPAM 0.5 MG TABS 209283 CLONAZEPAM Inactive PREDNISONE 20 MG TAB 3 tabs today, then 1 tab twice daily for 3 day, then one daily for three days PREDNISONE 20 MG TAB 192362 PREDNISONE Inactive PREDNISONE 20 MG TAB 2 tabs daily for 4 days, 1 tab daily for 4 days, 1/2 tab daily for 4 days PREDNISONE 20 MG TAB 964873 PREDNISONE Inactive PREDNISONE 10 MG TABS 1 tab po daily PREDNISONE 10 MG TABS 309099 PREDNISONE Inactive TYLENOL EXTRA STRENGTH 500 MG TABS as needed TYLENOL EXTRA STRENGTH 500 MG TABS 965953 ACETAMINOPHEN Inactive MUPIROCIN 2 % OINT apply to affected area BID x 14 days MUPIROCIN 2 % OINT 338170 MUPIROCIN Inactive MONTELUKAST SODIUM 10 MG TABS 1 tab po in the evening MONTELUKAST SODIUM 10 MG TABS 20010818 MONTELUKAST SODIUM Inactive BENZONATATE 100 MG CAPS 1 cap po TID PRN BENZONATATE 100 MG CAPS 376300 BENZONATATE Inactive NEURONTIN 300 MG CAP 1 cap by mouth three times daily for restless leg 06/22 NEURONTIN 300 MG CAP 170484 GABAPENTIN Inactive LEVAQUIN 500 MG TAB 1 tablet by mouth daily LEVAQUIN 500 MG TAB 795828 LEVOFLOXACIN Inactive PREDNISONE 20 MG TAB 1 TID x 2 days, then 1 BID x 3 days, then 1 Daily x 3 days, then stop PREDNISONE 20 MG TAB 937855 PREDNISONE Inactive POTASSIUM CHLORIDE ER 10 MEQ CR-TABS take 1 tab po daily POTASSIUM CHLORIDE ER 10 MEQ CR-TABS POTASSIUM CHLORIDE Inactive PREDNISONE 20 MG TAB 1 tab twice daily for 3 day, then one daily for three days PREDNISONE 20 MG TAB 775354 PREDNISONE Inactive TESSALON PERLES 100 MG CAP 1 to 2 tablets by mouth 3 times daily as needed for cough TESSALON PERLES 100 MG CAP 274716 BENZONATATE Inactive POTASSIUM CHLORIDE CR 10 MEQ CPCR 1 capsule by mouth daily 02/14 POTASSIUM CHLORIDE CR 10 MEQ CPCR POTASSIUM CHLORIDE Inactive NITROSTAT 0.4 MG SUBL 1 tab under tongueas needed for chest pain ( may take 3 total, 5 min apart, then call 911) NITROSTAT 0.4 MG SUBL 516840 NITROGLYCERIN Inactive LOVASTATIN 40 MG TABS 1 pill by mouth nightly for cholesterol LOVASTATIN 40 MG TABS 398634 LOVASTATIN Inactive CEFDINIR 300 MG ORAL CAPS take 1 cap po bid x 10 days CEFDINIR 300 MG ORAL CAPS 785426 CEFDINIR Inactive ACEBUTOLOL HCL 200 MG CAPS 1 cap in the morning and 2 caps in the evening ACEBUTOLOL HCL 200 MG CAPS 607956 ACEBUTOLOL HCL Inactive VENTOLIN HFA 108 (90 BASE) MCG/ACT AERS 2 -4 puffs four times a day PRN 2013 VENTOLIN HFA 108 (90 BASE) MCG/ACT AERS ALBUTEROL SULFATE Inactive LEVAQUIN 500 MG ORAL TABS Take 1 tab po daily x 8 days LEVAQUIN 500 MG ORAL TABS 361851 LEVOFLOXACIN Inactive PREDNISONE 20 MG TAB 2 tabs daily for 4 days, 1 tab daily for 4 days, 1/2 tab daily for 4 days PREDNISONE 20 MG TAB 504172 PREDNISONE Inactive LOVASTATIN 40 MG ORAL TABS Take 1 tab po every hs LOVASTATIN 40 MG ORAL TABS 788011 LOVASTATIN Inactive DILAUDID 2 MG ORAL TABS Take 1/2 tab po every 4 hours as needed for pain 2014 DILAUDID 2 MG ORAL TABS 516981 HYDROMORPHONE HCL Inactive AMITRIPTYLINE HCL 25 MG ORAL TABS 1 q hs prn AMITRIPTYLINE HCL 25 MG ORAL TABS 708608 AMITRIPTYLINE HCL Inactive MECLIZINE HCL 25 MG TAB 1 tablet three times daily for 3 days, then 1/2 tab three times daily for 3 days. MECLIZINE HCL 25 MG TAB 031639 MECLIZINE HCL Inactive AMLODIPINE BESYLATE 5 MG ORAL TABS Take 1 tab po daily AMLODIPINE BESYLATE 5 MG ORAL TABS 920748 AMLODIPINE BESYLATE Inactive TOPIRAMATE 25 MG TABS 1 tab po BID TOPIRAMATE 25 MG TABS 304844 TOPIRAMATE Inactive PREDNISONE 20 MG TAB 1 tablet twice daily for 2 days, then 1 tablet once daily for 2 days PREDNISONE 20 MG TAB 573044 PREDNISONE Inactive PREDNISONE 20 MG TAB 1 tab twice daily for 3 day, then one daily for three days PREDNISONE 20 MG TAB 594708 PREDNISONE Inactive AZITHROMYCIN 250 MG TABS 2 po qd x 1 day, then 1 po qd x 4 days AZITHROMYCIN 250 MG TABS 3877325 AZITHROMYCIN Inactive AZITHROMYCIN 250 MG TABS 2 po qd x 1 day, then 1 po qd x 4 days AZITHROMYCIN 250 MG TABS 3106656 AZITHROMYCIN Inactive PREDNISONE 20 MG TAB 2 po qd x 5 days PREDNISONE 20 MG TAB 124110 PREDNISONE Inactive Vital Signs Date Name Value [...] Panel - Chemistry sodium, serum 137 mmol/L 770-236 7788/01/03 potassium, serum 3.4 mmol/L 3.5-5.2 chloride, serum [...] 0.40 mg/dL 0.00-1.00 sodium, serum 142 mmol/L 092-792 1611/08/08 LDL cholesterol, serum 96 mg/dL 0-130 HDL [...] 10.0-20.0 Encounters Code Encounter Date Provider Facility CPT-36028 Level 3 Est. Patient 09:58:58 CDT Harinder Cr [facility] CPT-56098 Level 3 Est. Patient 12:37:21 CDT Harinder Cr [facility] CPT-12419 Level 3 Est. Patient 18:37:17 CDT Harinder Cr [facility] CPT-09352 Level 4 Est. Patient 11:15:54 CDT Nettie Newberry [facility] CPT-34273 Level 3 Est. Patient 16:42:24 CDT Harinder Cr [facility] CPT-62841 Level 3 Est. Patient 15:03:36 CDT Harinder rC [facility] CPT-30137 Level 3 Est. Patient 15:03:20 CDT Harinder Cr [facility] CPT-67021 Level 3 Est. Patient 12:14:34 CDT Harinder Cr [facility] CPT-88244 Level 3 Est. Patient 13:47:15 CDT Harinder Hernandez [facility] CPT-54515 Level 3 Est. Patient 14:08:24 CDT Harinder Hernandez [facility] CPT-02205 Level 3 Est. Patient 10:07:15 CDT Harinder Hernandez [facility] CPT-60253 Level 3 Est. Patient 10:06:59 CDT Harinder Hernandez [facility] CPT-87753 Level 3 Est. Patient 15:53:29 CDT Jae Morgan [facility] CPT-62723 Level 3 Est. Patient 17:19:04 CDT Harinder Hernandez [facility] CPT-57096 Level 3 Est. Patient 11:13:01 CDT Harinder Hernandez [facility] CPT-77895 Level 3 Est. Patient 09:03:58 CDT Harinder Hernandez [facility] CPT-33140 Level 3 Est. Patient 14:46:45 PLEAT PATTERNMAKER Harinder Hernandez [facility] CPT-48744 Level 3 Est. Patient 09:35:49 PLEAT PATTERNMAKER Harinder Hernandez [facility] CPT-29313 Level 3 Est. Patient 09:29:37 PLEAT PATTERNMAKER Harinder Hernandez [facility] CPT-15314 Level 3 Est. Patient 15:51:07 CDT Harinder Hernandez [facility] CPT-55400 Level 3 Est. Patient 18:13:13 CDT Harinder Hernandez [facility] CPT-15314 Level 3 Est. Patient 10:44:19 CDT Harinder Hernandez [facility] CPT-50359 Level 4 Est. Patient 10:07:19 PLEAT PATTERNMAKER Harinder Hernandez [facility] CPT-72668 Level 3 Est. Patient 15:59:32 PLEAT PATTERNMAKER Harinder W David DO [facility] Procedures Code Procedure Name Date Entry Date Standard Description CPT-26022 BMP - LAB USE ONLY 16:45:09 PLEAT PATTERNMAKER CPT-34271 Port a cath flush 12:00:13 PLEAT PATTERNMAKER CPT-TCMM Transitional Care Mgmt-Moderate 11:20:16 PLEAT PATTERNMAKER CPT-23020 First Vx - Ix admin for Medicare patients 17:35:15 CDT CPT-64018 Fluzone Preservative Free Intramuscular Suspension 17:35 :15 CDT CPT-26685 Microalbumin - LAB USE ONLY 11:52:05 CDT CPT-TCMM Transitional Care Mgmt-Moderate 11:33:57 CDT CPT-47805 No Charge Offi Visit 14:11:29 CDT CPT-38387 Magnesium - LAB USE ONLY 10:45:44 CDT CPT-29980 Lipid - LAB USE ONLY 10:45:44 CDT CPT-86980 CBC - LAB USE ONLY 10:45:44 CDT CPT-20309 Venipuncture Draw Fee 10:45:43 CDT CPT-17057 Venipuncture Draw Fee 18:21:27 CDT CPT-JTINJ Asp/Joint Injection 18:38:04 CDT CPT-19995 Immunization Each Additional Inj 17:38:04 CDT CPT-05816 Immunization Single Admin 17:38:04 CDT CPT-22442 Prevnar 13 17:38:04 CDT CPT-65366 Fluzone Quadrivalent preservative free (>=3yrs.) 17:38: 04 CDT CPT-27379 No Charge Offi Visit 11:14:03 CDT CPT-53965 Chest 2V Frontal and Lat 14:00:18 CDT CPT-OV Office Visit 16:10:28 CDT CPT-JTINJ Asp/Joint Injection 09:03:57 CDT CPT-Cryo Cryotherapy 09:35:49 PLEAT PATTERNMAKER CPT-JTINJ Asp/Joint Injection 09:34:45 PLEAT PATTERNMAKER CPT-J2930 Solu Medrol 125 mg (Methyl Prednisolone Sodium Succinate) 20:37:27 CDT CPT-39740 Abx/Therapy Injection 20:37:27 CDT CPT-61142 Port a cath flush 08:15:51 CDT CPT-81545 Port a cath flush 09:54:16 CDT CPT-77690 Port a cath flush 09:38:02 CDT CPT-56949 Port a cath flush 11:00:27 PLEAT PATTERNMAKER
--- OUTSIDE RECORDS SUMMARY | 2017-12-29 02:22 | XMS REPORT | Clinical Summary ---
Author Author Admin, QIE Organization [facility] miiCard Address Unknown Phone Unavailable Allergies, Adverse Reactions, [...] Harinder Hernandez DO LYRICA Critical Active Harinder Hrenandez DO Conditions or Problems Problem Name Problem [...] 4hrs PRN Wheezing Dx: J44.1 ALBUTEROL SULFATE 70841775584 Active Kaylah Newberry Active AMLODIPINE BESYLATE 5 MG TABS 1 tablet by mouth daily AMLODIPINE BESYLATE 49315344331 Active Harinder Hernandez DO Active NIFEDIPINE ER 30 MG ORAL [id number] 1 daily NIFEDIPINE 08279261154 No Longer Active Harinder Hernandez DO Active POTASSIUM CHLORIDE 20 MEQ ORAL PACK Take 1 tablet by mouth daily POTASSIUM CHLORIDE 03223444758 Active Ciera Pimentel Active FLOVENT HFA 110 MCG/ACT AERO 2 puffs inhaled b.i.d. FLUTICASONE PROPIONATE HFA 72852482592 Active Harinder Hernandez DO Active POTASSIUM CHLORIDE CR 10 MEQ CPCR 1 capsule by mouth daily POTASSIUM CHLORIDE 29935414327 Active Harinder Hernandez DO Active EPIPEN 2-BRUNA 0.3 MG/0.3ML INJ SOAJ 1 INJ NEEDED EPINEPHRINE 62231826509 Active Harinder Hernandez DO Active PREDNISONE 20 MG TAB 1 tab twice daily for 3 day, then one daily for three days PREDNISONE 35608392160 No Longer Active Harinder Hernandez DO Active PREDNISONE 20 MG TAB 1 tablet twice daily for 2 days, then 1 tablet once daily for 2 days PREDNISONE 33180788419 No Longer Active Harinder Hernandez DO Active ASMANEX 120 METERED DOSES 220 MCG/INH INH AEPB 2 puffs orally twice daily MOMETASONE FUROATE 33464799574 Active Jeri Sosa RPT,RMA Active TOPIRAMATE 25 MG TABS 1 tab po BID TOPIRAMATE 66264431067 No Longer Active Nettie Newberry APRN Active AMLODIPINE BESYLATE 5 MG ORAL TABS Take 1 tab po daily AMLODIPINE BESYLATE 35995775444 No Longer Active Nettie Rohith MAHENDRA Active MECLIZINE HCL 25 MG TAB 1 tablet three times daily for 3 days, then 1/2 tab three times daily for 3 days. MECLIZINE HCL 22616101719 No Longer Active Nettie Newberry APRN Active AMITRIPTYLINE HCL 25 MG ORAL TABS 1 q hs prn AMITRIPTYLINE HCL 59257530720 No Longer Active Nettie Rohith MAHENDRA Active DILAUDID 2 MG ORAL TABS Take 1/2 tab po every 4 hours as needed for pain 2014 HYDROMORPHONE HCL 65323487113 No Longer Active Nettie Newberry APRN Active CLOPIDOGREL BISULFATE 75 MG ORAL TABS 1 tab by mouth once daily CLOPIDOGREL BISULFATE 86724590425 Active Tawnya Pardo MA Active ATORVASTATIN CALCIUM 10 MG ORAL TABS 1 at bedtime ATORVASTATIN CALCIUM 07001417256 Active Tawnya Pardo MA Active LOVASTATIN 40 MG ORAL TABS Take 1 tab po every hs LOVASTATIN 13069528171 No Longer Active Harinder Hernandez DO Active PREDNISONE 20 MG TAB 2 tabs daily for 4 days, 1 tab daily for 4 days, 1/2 tab daily for 4 days PREDNISONE 48393536573 No Longer Active Harinder Hernandez DO Active LEVAQUIN 500 MG ORAL TABS Take 1 tab po daily x 8 days LEVOFLOXACIN 13018810660 No Longer Active Harinder Hernandez DO Active VENTOLIN HFA 108 (90 BASE) MCG/ACT AERS 2 -4 puffs four times a day PRN 2013 ALBUTEROL SULFATE 00711605793 No Longer Active Jeri Sosa RPT,RMA Active ACEBUTOLOL HCL 200 MG CAPS 1 cap in the morning and 2 caps in the evening ACEBUTOLOL HCL 95060564727 No Longer Active Harinder Hernandez DO Active CEFDINIR 300 MG ORAL CAPS take 1 cap po bid x 10 days CEFDINIR 08975341103 No Longer Active Harinder Hernandez DO Active LOVASTATIN 40 MG TABS 1 pill by mouth nightly for cholesterol LOVASTATIN 80179951077 No Longer Active Nettie Newberry APRN Active NITROSTAT 0.4 MG SUBL 1 tab under tongueas needed for chest pain ( may take 3 total, 5 min apart, then call 911) NITROGLYCERIN 92521506640 No Longer Active Nettie Newberry APRN Active POTASSIUM CHLORIDE CR 10 MEQ CPCR 1 capsule by mouth daily 02/14 POTASSIUM CHLORIDE 72604871416 No Longer Active Nettie Newberry APRN Active TESSALON PERLES 100 MG CAP 1 to 2 tablets by mouth 3 times daily as needed for cough BENZONATATE 69182935977 No Longer Active Nettie Newberry APRN Active THEOPHYLLINE ER 200 MG ORAL [id number] Take 1 tab every 12 hours THEOPHYLLINE 36113460917 Active Tawnya Pardo MA Active PREDNISONE 20 MG TAB 2 po qd x 5 days PREDNISONE 92664892238 No Longer Active Jae Morgan MD Active AZITHROMYCIN 250 MG TABS 2 po qd x 1 day, then 1 po qd x 4 days AZITHROMYCIN 33447164865 No Longer Active Jae Morgan MD Active PREDNISONE 20 MG TAB 1 tab twice daily for 3 day, then one daily for three days PREDNISONE 12327492441 No Longer Active Jae Morgan MD Active SINGULAIR 10 MG TABS 1 pill by mouth every evening for breathing. MONTELUKAST SODIUM 38566653252 Active Tawnya Pardo MA Active TYLENOL 325 MG TAB 3 by mouth q4h as needed ACETAMINOPHEN 46006659443 Active Harinder Hernandez DO Active POTASSIUM CHLORIDE ER 10 MEQ CR-TABS take 1 tab po daily POTASSIUM CHLORIDE 13175413984 No Longer Active Harinder Hernandez DO Active PREDNISONE 20 MG TAB 1 TID x 2 days, then 1 BID x 3 days, then 1 Daily x 3 days, then stop PREDNISONE 49144965385 No Longer Active Jillina Frazell TITLE ASSISTANT Active LEVAQUIN 500 MG TAB 1 tablet by mouth daily LEVOFLOXACIN 20774148684 No Longer Active Jillina Frazell TITLE ASSISTANT Active NEURONTIN 300 MG CAP 1 cap by mouth three times daily for restless leg 06/22 GABAPENTIN 80625759889 No Longer Active Harinder Hernandez DO Active BENZONATATE 100 MG CAPS 1 cap po TID PRN BENZONATATE 90938998716 No Longer Active Harinder Hernandez DO Active MONTELUKAST SODIUM 10 MG TABS 1 tab po in the evening MONTELUKAST SODIUM 51537029102 No Longer Active Harinder Hernandez DO Active MUPIROCIN 2 % OINT apply to affected area BID x 14 days MUPIROCIN 71707501581 No Longer Active Harinder Hernandez DO Active TYLENOL EXTRA STRENGTH 500 MG TABS as needed ACETAMINOPHEN 36872540582 No Longer Active Harinder Hernandez DO Active PREDNISONE 10 MG TABS 1 tab po daily PREDNISONE 20989031013 No Longer Active Harinder Hernandez DO Active PREDNISONE 20 MG TAB 2 tabs daily for 4 days, 1 tab daily for 4 days, 1/2 tab daily for 4 days PREDNISONE 81548600616 No Longer Active Harinder Hernandez DO Active AZITHROMYCIN 250 MG TABS 2 po qd x 1 day, then 1 po qd x 4 days AZITHROMYCIN 89013835308 No Longer Active Harinder Hernandez DO Active PREDNISONE 20 MG TAB 3 tabs today, then 1 tab twice daily for 3 day, then one daily for three days PREDNISONE 51890179198 No Longer Active Harinder Hernandez DO Active NIFEDIAC CC 30 MG [id number] 1 tablet daily for raynaud's syndrome NIFEDIPINE 44872380458 No Longer Active Tawnya Pardo MA Active AMBIEN 10 MG TAB 1/2 tab by mouth at bedtime as needed for sleep ZOLPIDEM TARTRATE 55079198017 Active Harinder Hernandez DO Active CLONAZEPAM 1 MG TABS 1 tablet at bedtime for insomnia and restless legs 09/14 CLONAZEPAM 53959495700 Active Harinder Hernandez DO Active CLONAZEPAM 0.5 MG TABS 1 tab po daily CLONAZEPAM 79531019343 No Longer Active Harinder Hernandez DO Active PREDNISONE 10 MG TAB 1 tablet daily for COPD PREDNISONE 45100260792 Active Tawnya Pardo MA Active PROAIR HFA 108 (90 BASE) MCG/ACT AERS 2 puffs four times a day as needed 2012 ALBUTEROL SULFATE 42815420148 Active Tawnya Pardo MA Active FLOVENT HFA 110 MCG/ACT AERO 2 puffs inhaled b.i.d. FLUTICASONE PROPIONATE HFA 22146073376 Active Tawnya Pardo MA Active ACIPHEX 20 MG TBEC 1 tab po daily RABEPRAZOLE SODIUM 18558744656 Active Kaylah Newberry Active CLONAZEPAM 0.5 MG TABS 1 tab po daily CLONAZEPAM 0.5 MG TABS 827249 CLONAZEPAM Inactive PREDNISONE 20 MG TAB 3 tabs today, then 1 tab twice daily for 3 day, then one daily for three days PREDNISONE 20 MG TAB 510425 PREDNISONE Inactive PREDNISONE 20 MG TAB 2 tabs daily for 4 days, 1 tab daily for 4 days, 1/2 tab daily for 4 days PREDNISONE 20 MG TAB 709187 PREDNISONE Inactive PREDNISONE 10 MG TABS 1 tab po daily PREDNISONE 10 MG TABS 540513 PREDNISONE Inactive TYLENOL EXTRA STRENGTH 500 MG TABS as needed TYLENOL EXTRA STRENGTH 500 MG TABS 107215 ACETAMINOPHEN Inactive MUPIROCIN 2 % OINT apply to affected area BID x 14 days MUPIROCIN 2 % OINT 588638 MUPIROCIN Inactive MONTELUKAST SODIUM 10 MG TABS 1 tab po in the evening MONTELUKAST SODIUM 10 MG TABS 20010818 MONTELUKAST SODIUM Inactive BENZONATATE 100 MG CAPS 1 cap po TID PRN BENZONATATE 100 MG CAPS 19730321 BENZONATATE Inactive NEURONTIN 300 MG CAP 1 cap by mouth three times daily for restless leg 06/22 NEURONTIN 300 MG CAP 307572 GABAPENTIN Inactive LEVAQUIN 500 MG TAB 1 tablet by mouth daily LEVAQUIN 500 MG TAB 854286 LEVOFLOXACIN Inactive PREDNISONE 20 MG TAB 1 TID x 2 days, then 1 BID x 3 days, then 1 Daily x 3 days, then stop PREDNISONE 20 MG TAB 253100 PREDNISONE Inactive POTASSIUM CHLORIDE ER 10 MEQ CR-TABS take 1 tab po daily POTASSIUM CHLORIDE ER 10 MEQ CR-TABS POTASSIUM CHLORIDE Inactive PREDNISONE 20 MG TAB 1 tab twice daily for 3 day, then one daily for three days PREDNISONE 20 MG TAB 312176 PREDNISONE Inactive TESSALON PERLES 100 MG CAP 1 to 2 tablets by mouth 3 times daily as needed for cough TESSALON PERLES 100 MG CAP 527636 BENZONATATE Inactive POTASSIUM CHLORIDE CR 10 MEQ CPCR 1 capsule by mouth daily 02/14 POTASSIUM CHLORIDE CR 10 MEQ CPCR POTASSIUM CHLORIDE Inactive NITROSTAT 0.4 MG SUBL 1 tab under tongueas needed for chest pain ( may take 3 total, 5 min apart, then call 911) NITROSTAT 0.4 MG SUBL 596842 NITROGLYCERIN Inactive LOVASTATIN 40 MG TABS 1 pill by mouth nightly for cholesterol LOVASTATIN 40 MG TABS 819846 LOVASTATIN Inactive CEFDINIR 300 MG ORAL CAPS take 1 cap po bid x 10 days CEFDINIR 300 MG ORAL CAPS 20021018 CEFDINIR Inactive ACEBUTOLOL HCL 200 MG CAPS 1 cap in the morning and 2 caps in the evening ACEBUTOLOL HCL 200 MG CAPS 920220 ACEBUTOLOL HCL Inactive VENTOLIN HFA 108 (90 BASE) MCG/ACT AERS 2 -4 puffs four times a day PRN 2013 VENTOLIN HFA 108 (90 BASE) MCG/ACT AERS ALBUTEROL SULFATE Inactive LEVAQUIN 500 MG ORAL TABS Take 1 tab po daily x 8 days LEVAQUIN 500 MG ORAL TABS 855531 LEVOFLOXACIN Inactive PREDNISONE 20 MG TAB 2 tabs daily for 4 days, 1 tab daily for 4 days, 1/2 tab daily for 4 days PREDNISONE 20 MG TAB 658270 PREDNISONE Inactive LOVASTATIN 40 MG ORAL TABS Take 1 tab po every hs LOVASTATIN 40 MG ORAL TABS 507317 LOVASTATIN Inactive DILAUDID 2 MG ORAL TABS Take 1/2 tab po every 4 hours as needed for pain 2014 DILAUDID 2 MG ORAL TABS 177137 HYDROMORPHONE HCL Inactive AMITRIPTYLINE HCL 25 MG ORAL TABS 1 q hs prn AMITRIPTYLINE HCL 25 MG ORAL TABS 781701 AMITRIPTYLINE HCL Inactive MECLIZINE HCL 25 MG TAB 1 tablet three times daily for 3 days, then 1/2 tab three times daily for 3 days. MECLIZINE HCL 25 MG TAB 723769 MECLIZINE HCL Inactive AMLODIPINE BESYLATE 5 MG ORAL TABS Take 1 tab po daily AMLODIPINE BESYLATE 5 MG ORAL TABS 259845 AMLODIPINE BESYLATE Inactive TOPIRAMATE 25 MG TABS 1 tab po BID TOPIRAMATE 25 MG TABS 932844 TOPIRAMATE Inactive PREDNISONE 20 MG TAB 1 tablet twice daily for 2 days, then 1 tablet once daily for 2 days PREDNISONE 20 MG TAB 708762 PREDNISONE Inactive PREDNISONE 20 MG TAB 1 tab twice daily for 3 day, then one daily for three days PREDNISONE 20 MG TAB 980335 PREDNISONE Inactive NIFEDIPINE ER 30 MG ORAL [id number] 1 daily NIFEDIPINE ER 30 MG ORAL [id number] NIFEDIPINE Inactive AZITHROMYCIN 250 MG TABS 2 po qd x 1 day, then 1 po qd x 4 days AZITHROMYCIN 250 MG TABS 9884452 AZITHROMYCIN Inactive AZITHROMYCIN 250 MG TABS 2 po qd x 1 day, then 1 po qd x 4 days AZITHROMYCIN 250 MG TABS 6730439 AZITHROMYCIN Inactive PREDNISONE 20 MG TAB 2 po qd x 5 days PREDNISONE 20 MG TAB 899432 PREDNISONE Inactive Vital Signs Date Name Value [...] Panel - Chemistry sodium, serum 137 mmol/L 483-602 0904/01/03 potassium, serum 3.4 mmol/L 3.5-5.2 chloride, serum [...] Magnesium - Chemistry cholesterol, serum 180 mg/dL 943-144 6420/08/08 triglyceride, serum, fasting 92 mg/dL 30-200 HDL cholesterol, serum 66 mg/dL 32-96 LDL cholesterol, serum 96 mg/dL 0-130 sodium, serum 142 mmol/L 814-756 0474/08/08 carbon dioxide, venous blood 27.4 mmol/L 21.0-32.0 [...] 10.0-20.0 Encounters Code Encounter Date Provider Facility CPT-22053 Level 3 Est. Patient 09:58:58 CDT Harinder Hernandez [facility] CPT-29615 Level 3 Est. Patient 12:37:21 CDT Harinder Hernandez [facility] CPT-74590 Level 3 Est. Patient 18:37:17 CDT Harinder Hernandez [facility] CPT-29668 Level 4 Est. Patient 11:15:54 CDT Nettie Newberry [facility] CPT-37775 Level 3 Est. Patient 16:42:24 CDT Harinder Cr [facility] CPT-94004 Level 3 Est. Patient 15:03:36 CDT Harinder Hernandez [facility] CPT-51991 Level 3 Est. Patient 15:03:20 CDT Harinder Hernandez [facility] CPT-66711 Level 3 Est. Patient 12:14:34 CDT Harinder Hernandez [facility] CPT-43240 Level 3 Est. Patient 13:47:15 CDT Harinder Hernandez [facility] CPT-18609 Level 3 Est. Patient 14:08:24 CDT Harinder Hernandez [facility] CPT-55813 Level 3 Est. Patient 10:07:15 CDT Harinder Hernandez [facility] CPT-32121 Level 3 Est. Patient 10:06:59 CDT Harinder Hernandez [facility] CPT-64749 Level 3 Est. Patient 15:53:29 CDT Jae Morgan MD [facility] CPT-39568 Level 3 Est. Patient 17:19:04 CDT Harinder Hernandez [facility] CPT-74615 Level 3 Est. Patient 11:13:01 CDT Harinder Hernandez [facility] CPT-62054 Level 3 Est. Patient 09:03:58 CDT Harinder Hernandez [facility] CPT-16497 Level 3 Est. 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 Patient 15:51:07 CDT Harinder Hernandez [facility] CPT-34939 Level 3 Est. Patient 18:13:13 CDT Harinder Shaye Hernandez [facility] CPT-71460 Level 3 Est. Patient 10:44:19 CDT Harinder Hernandez [facility] CPT-37656 Level 4 Est. Patient 10:07:19 LONG WALL SHEAR OPERATOR Harinder Hernandez [facility] CPT-55934 Level 3 Est. 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 WALL SHEAR OPERATOR Harinder Hernandez [facility] Procedures Code Procedure Name Date Entry Date Standard Description CPT-66755 BMP - LAB USE ONLY 16:45:09 LONG WALL SHEAR OPERATOR CPT-74105 Port a cath flush 12:00:13 LONG WALL SHEAR OPERATOR CPT-TCMM Transitional Care Mgmt-Moderate 11:20:16 LONG WALL SHEAR OPERATOR CPT-01111 First Vx - Ix admin for Medicare patients 17:35:15 CDT CPT-65220 Fluzone Preservative Free Intramuscular Suspension 17:35 :15 CDT CPT-64921 Microalbumin - LAB USE ONLY 11:52:05 CDT CPT-TCMM Transitional Care Mgmt-Moderate 11:33:57 CDT CPT-75789 No Charge Offi Visit 14:11:29 CDT CPT-58249 Magnesium - LAB USE ONLY 10:45:44 CDT CPT-77536 Lipid - LAB USE ONLY 10:45:44 CDT CPT-50866 CBC - LAB USE ONLY 10:45:44 CDT CPT-31864 Venipuncture Draw Fee 10:45:43 CDT CPT-81439 Venipuncture Draw Fee 18:21:27 CDT CPT-JTINJ Asp/Joint Injection 18:38:04 CDT CPT-83339 Immunization Each Additional Inj 17:38:04 CDT CPT-36899 Immunization Single Admin 17:38:04 CDT CPT-98170 Prevnar 13 17:38:04 CDT CPT-14948 Fluzone Quadrivalent preservative free (>=3yrs.) 17:38: 04 CDT CPT-26786 No Charge Offi Visit 11:14:03 CDT CPT-45619 Chest 2V Frontal and Lat 14:00:18 CDT CPT-OV Office Visit 16:10:28 CDT CPT-JTINJ Asp/Joint Injection 09:03:57 CDT CPT-Cryo Cryotherapy 09:35:49 LONG WALL SHEAR OPERATOR CPT-JTINJ Asp/Joint Injection 09:34:45 LONG WALL SHEAR OPERATOR CPT-J2930 Solu Medrol 125 mg (Methyl Prednisolone Sodium Succinate) 20:37:27 CDT CPT-46856 Abx/Therapy Injection 20:37:27 CDT CPT-68513 Port a cath flush 08:15:51 CDT CPT-30529 Port a cath flush 09:54:16 CDT CPT-56161 Port a cath flush 09:38:02 CDT CPT-43111 Port a cath flush 11:00:27 LONG WALL SHEAR OPERATOR
--- OUTSIDE RECORDS SUMMARY | 2017-12-29 02:24 | XMS REPORT | Clinical Summary ---
Author Author Admin, QIE Organization [facility] [employer] Address Unknown Phone Unavailable Allergies, Adverse Reactions, Alerts Allergy Name Reaction Description Start Date Severity Status Provider VANCOMYCIN Critical Active Harinder Hernandez DO LEVAQUIN stomach upset, diarrhea, and itching Critical Active Harinder Hernandez DO AITHROMYCIN itch Moderate Active Harinder Hernandez DO NEOSPORIN Critical Active Harinder Hrenandez DO TRAMADOL HCL Critical Active Harinder Hernandez [...] region and thigh Raynaud's syndrome 443.0 Active aHrinder Hernandez DO Raynaud's syndrome Edema leg 782.3 [...] 1 po qd for depression/anxiety FLUOXETINE HCL 67899611076 Active Harinder Hernandez DO Active VOLTAREN 1 % GEL apply q 6-8 hour to left arm as needed for pain DICLOFENAC SODIUM 58601966195 Active Harinder Hernandez DO Active LASIX 20 MG TAB 1 tablet by mouth every morning FUROSEMIDE 98028262371 Active Kortney Mccain Active POTASSIUM CHLORIDE 20 MEQ ORAL PACK 1 tab po BID POTASSIUM CHLORIDE 68969377385 Active Kortney Mccain Active ALBUTEROL SULFATE 0.083 % NEBU SOLN 1 vial neb q 4hrs for severe asthma. imperative to have this agent ALBUTEROL SULFATE 65359639777 Active Ciera Pimentel Active NIFEDIAC CC 30 MG [id number] 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 NIFEDIPINE 16065219752 Active Harinder Hernandez DO Active AMLODIPINE BESYLATE 5 MG TABS 1 tablet by mouth daily AMLODIPINE BESYLATE 23259898036 No Longer Active Harinder Hernandez DO Active TOPAMAX 25 MG ORAL TABS 1 tab po BID TOPIRAMATE 00010629304 Active Kortney Mccain Active FLUTICASONE PROPIONATE 50 MCG/ACT SUSP 2 sprays per nostril daily PRN Allergies FLUTICASONE PROPIONATE 05168273287 Active Kortney Mccain Active NIFEDIPINE ER 30 MG ORAL [id number] 1 daily NIFEDIPINE 44207233382 No Longer Active Harinder Hernandez DO Active FLOVENT HFA 110 MCG/ACT AERO 2 puffs inhaled b.i.d. FLUTICASONE PROPIONATE HFA 92423452379 Active Harinder Hernandez DO Active POTASSIUM CHLORIDE CR 10 MEQ CPCR 1 capsule by mouth daily POTASSIUM CHLORIDE 45151350675 Active Harinder Hernandez DO Active EPIPEN 2-BRUNA 0.3 MG/0.3ML INJ SOAJ 1 INJ NEEDED EPINEPHRINE 61505620200 Active Harinder Hernandez DO Active PREDNISONE 20 MG TAB 1 tab twice daily for 3 day, then one daily for three days PREDNISONE 53335925440 No Longer Active Harinder Hernandez DO Active PREDNISONE 20 MG TAB 1 tablet twice daily for 2 days, then 1 tablet once daily for 2 days PREDNISONE 45299759930 No Longer Active Harinder Hernandez DO Active ASMANEX 120 METERED DOSES 220 MCG/INH INH AEPB 2 puffs orally twice daily MOMETASONE FUROATE 40807049213 Active Jeri Sosa RPT,RMA Active TOPIRAMATE 25 MG TABS 1 tab po BID TOPIRAMATE 11852758305 No Longer Active Nettie Newberry APRN Active AMLODIPINE BESYLATE 5 MG ORAL TABS Take 1 tab po daily AMLODIPINE BESYLATE 15614462995 No Longer Active Nettie Newberry APRN Active MECLIZINE HCL 25 MG TAB 1 tablet three times daily for 3 days, then 1/2 tab three times daily for 3 days. MECLIZINE HCL 33654314387 No Longer Active Nettie Newberry APRN Active AMITRIPTYLINE HCL 25 MG ORAL TABS 1 q hs prn AMITRIPTYLINE HCL 54919449802 No Longer Active Nettie Newberry APRN Active DILAUDID 2 MG ORAL TABS Take 1/2 tab po every 4 hours as needed for pain 2014 HYDROMORPHONE HCL 61386202852 No Longer Active Nettie Newberry APRN Active CLOPIDOGREL BISULFATE 75 MG ORAL TABS 1 tab by mouth once daily CLOPIDOGREL BISULFATE 66252862139 Active Harinder Hernandez DO Active ATORVASTATIN CALCIUM 10 MG ORAL TABS 1 at bedtime ATORVASTATIN CALCIUM 87339204243 Active Tawnya Pardo MA Active LOVASTATIN 40 MG ORAL TABS Take 1 tab po every hs LOVASTATIN 31337846267 No Longer Active Harinder Hernandez DO Active PREDNISONE 20 MG TAB 2 tabs daily for 4 days, 1 tab daily for 4 days, 1/2 tab daily for 4 days PREDNISONE 44373418880 No Longer Active Harinder Hernandez DO Active LEVAQUIN 500 MG ORAL TABS Take 1 tab po daily x 8 days LEVOFLOXACIN 69395374535 No Longer Active Harinder Hernandez DO Active VENTOLIN HFA 108 (90 BASE) MCG/ACT AERS 2 -4 puffs four times a day PRN 2013 ALBUTEROL SULFATE 61390469865 No Longer Active Jeri Sosa RPT,RMA Active ACEBUTOLOL HCL 200 MG CAPS 1 cap in the morning and 2 caps in the evening ACEBUTOLOL HCL 61361701945 No Longer Active Harinder Hernandez DO Active CEFDINIR 300 MG ORAL CAPS take 1 cap po bid x 10 days CEFDINIR 76890848092 No Longer Active Harinder Hernandez DO Active LOVASTATIN 40 MG TABS 1 pill by mouth nightly for cholesterol LOVASTATIN 85172246093 No Longer Active Nettie Newberry APRN Active NITROSTAT 0.4 MG SUBL 1 tab under tongueas needed for chest pain ( may take 3 total, 5 min apart, then call 911) NITROGLYCERIN 05927246880 No Longer Active Nettie Newberry APRN Active POTASSIUM CHLORIDE CR 10 MEQ CPCR 1 capsule by mouth daily 02/14 POTASSIUM CHLORIDE 84116178307 No Longer Active Nettie Newberry APRN Active TESSALON PERLES 100 MG CAP 1 to 2 tablets by mouth 3 times daily as needed for cough BENZONATATE 08184939208 No Longer Active Nettie Newberry MAHENDRA Active THEOPHYLLINE ER 200 MG ORAL [id number] Take 1 tab every 12 hours THEOPHYLLINE 18726674126 Active Kortney Mccain Active PREDNISONE 20 MG TAB 2 po qd x 5 days PREDNISONE 02203806539 No Longer Active Jae Morgan MD Active AZITHROMYCIN 250 MG TABS 2 po qd x 1 day, then 1 po qd x 4 days AZITHROMYCIN 61249257702 No Longer Active Jae Morgan MD Active PREDNISONE 20 MG TAB 1 tab twice daily for 3 day, then one daily for three days PREDNISONE 93764569790 No Longer Active Jae Morgan MD Active SINGULAIR 10 MG TABS 1 pill by mouth every evening for breathing. MONTELUKAST SODIUM 66509403016 Active Tawnya Pardo MA Active TYLENOL 325 MG TAB 3 by mouth q4h as needed ACETAMINOPHEN 87972344160 Active Harinder Hernandez DO Active POTASSIUM CHLORIDE ER 10 MEQ CR-TABS take 1 tab po daily POTASSIUM CHLORIDE 41454528200 No Longer Active Harinder Hernandez DO Active PREDNISONE 20 MG TAB 1 TID x 2 days, then 1 BID x 3 days, then 1 Daily x 3 days, then stop PREDNISONE 08743945230 No Longer Active Jillkvng Frazellor MCCRAY Active LEVAQUIN 500 MG TAB 1 tablet by mouth daily LEVOFLOXACIN 26423217991 No Longer Active Jillina Frazell MAHENDRA Active NEURONTIN 300 MG CAP 1 cap by mouth three times daily for restless leg 06/22 GABAPENTIN 13961090557 No Longer Active Harinder Hernandez DO Active BENZONATATE 100 MG CAPS 1 cap po TID PRN BENZONATATE 41784674908 No Longer Active Harinder Hernandez DO Active MONTELUKAST SODIUM 10 MG TABS 1 tab po in the evening MONTELUKAST SODIUM 11803992052 No Longer Active Harinder Hernandez DO Active MUPIROCIN 2 % OINT apply to affected area BID x 14 days MUPIROCIN 76643875817 No Longer Active Harinder Hernandez DO Active TYLENOL EXTRA STRENGTH 500 MG TABS as needed ACETAMINOPHEN 24665769491 No Longer Active Harinder Hernandez DO Active PREDNISONE 10 MG TABS 1 tab po daily PREDNISONE 67013999819 No Longer Active Harinder Hernandez DO Active PREDNISONE 20 MG TAB 2 tabs daily for 4 days, 1 tab daily for 4 days, 1/2 tab daily for 4 days PREDNISONE 16010413425 No Longer Active Harinder Hernandez DO Active AZITHROMYCIN 250 MG TABS 2 po qd x 1 day, then 1 po qd x 4 days AZITHROMYCIN 36142276861 No Longer Active Harinder Hernandez DO Active PREDNISONE 20 MG TAB 3 tabs today, then 1 tab twice daily for 3 day, then one daily for three days PREDNISONE 92622823428 No Longer Active Harinder Hernandez DO Active NIFEDIAC CC 30 MG [id number] 1 tablet daily for raynaud's syndrome NIFEDIPINE 62731064850 No Longer Active Tawnya Pardo MA Active AMBIEN 10 MG TAB 1/2 tab by mouth at bedtime as needed for sleep ZOLPIDEM TARTRATE 02046200310 Active Ciera Pimentel Active CLONAZEPAM 1 MG TABS 1 tablet at bedtime for insomnia and restless legs 09/14 CLONAZEPAM 03176459430 Active Harinder Hernandez DO Active CLONAZEPAM 0.5 MG TABS 1 tab po daily CLONAZEPAM 02177686354 No Longer Active Harinder Hernandez DO Active PREDNISONE 10 MG TAB 1 tablet daily for COPD PREDNISONE 59437660107 Active Ciera Pimentel Active PROAIR HFA 108 (90 BASE) MCG/ACT AERS 2 puffs four times a day as needed 2012 ALBUTEROL SULFATE 83130895325 Active Harinder Hernandez DO Active FLOVENT HFA 110 MCG/ACT AERO 2 puffs inhaled b.i.d. FLUTICASONE PROPIONATE HFA 56147402566 Active Kortney Mccain Active ACIPHEX 20 MG TBEC 1 tab po daily RABEPRAZOLE SODIUM 57299515831 Active Kaylah Rohith Active CLONAZEPAM 0.5 MG TABS 1 tab po daily CLONAZEPAM 0.5 MG TABS 537752 CLONAZEPAM Inactive PREDNISONE 20 MG TAB 3 tabs today, then 1 tab twice daily for 3 day, then one daily for three days PREDNISONE 20 MG TAB 875853 PREDNISONE Inactive PREDNISONE 20 MG TAB 2 tabs daily for 4 days, 1 tab daily for 4 days, 1/2 tab daily for 4 days PREDNISONE 20 MG TAB 209603 PREDNISONE Inactive PREDNISONE 10 MG TABS 1 tab po daily PREDNISONE 10 MG TABS 107491 PREDNISONE Inactive TYLENOL EXTRA STRENGTH 500 MG TABS as needed TYLENOL EXTRA STRENGTH 500 MG TABS 146816 ACETAMINOPHEN Inactive MUPIROCIN 2 % OINT apply to affected area BID x 14 days MUPIROCIN 2 % OINT 647356 MUPIROCIN Inactive MONTELUKAST SODIUM 10 MG TABS 1 tab po in the evening MONTELUKAST SODIUM 10 MG TABS 751558 MONTELUKAST SODIUM Inactive BENZONATATE 100 MG CAPS 1 cap po TID PRN BENZONATATE 100 MG CAPS 448461 BENZONATATE Inactive NEURONTIN 300 MG CAP 1 cap by mouth three times daily for restless leg 06/22 NEURONTIN 300 MG CAP 692188 GABAPENTIN Inactive LEVAQUIN 500 MG TAB 1 tablet by mouth daily LEVAQUIN 500 MG TAB 639521 LEVOFLOXACIN Inactive PREDNISONE 20 MG TAB 1 TID x 2 days, then 1 BID x 3 days, then 1 Daily x 3 days, then stop PREDNISONE 20 MG TAB 980778 PREDNISONE Inactive POTASSIUM CHLORIDE ER 10 MEQ CR-TABS take 1 tab po daily POTASSIUM CHLORIDE ER 10 MEQ CR-TABS POTASSIUM CHLORIDE Inactive PREDNISONE 20 MG TAB 1 tab twice daily for 3 day, then one daily for three days PREDNISONE 20 MG TAB 477276 PREDNISONE Inactive TESSALON PERLES 100 MG CAP 1 to 2 tablets by mouth 3 times daily as needed for cough TESSALON PERLES 100 MG CAP 414771 BENZONATATE Inactive POTASSIUM CHLORIDE CR 10 MEQ CPCR 1 capsule by mouth daily 02/14 POTASSIUM CHLORIDE CR 10 MEQ CPCR POTASSIUM CHLORIDE Inactive NITROSTAT 0.4 MG SUBL 1 tab under tongueas needed for chest pain ( may take 3 total, 5 min apart, then call 911) NITROSTAT 0.4 MG SUBL 763729 NITROGLYCERIN Inactive LOVASTATIN 40 MG TABS 1 pill by mouth nightly for cholesterol LOVASTATIN 40 MG TABS LOVASTATIN Inactive CEFDINIR 300 MG ORAL CAPS take 1 cap po bid x 10 days CEFDINIR 300 MG ORAL CAPS 20021018 CEFDINIR Inactive ACEBUTOLOL HCL 200 MG CAPS 1 cap in the morning and 2 caps in the evening ACEBUTOLOL HCL 200 MG CAPS 599878 ACEBUTOLOL HCL Inactive VENTOLIN HFA 108 (90 BASE) MCG/ACT AERS 2 -4 puffs four times a day PRN 2013 VENTOLIN HFA 108 (90 BASE) MCG/ACT AERS ALBUTEROL SULFATE Inactive LEVAQUIN 500 MG ORAL TABS Take 1 tab po daily x 8 days LEVAQUIN 500 MG ORAL TABS 537915 LEVOFLOXACIN Inactive PREDNISONE 20 MG TAB 2 tabs daily for 4 days, 1 tab daily for 4 days, 1/2 tab daily for 4 days PREDNISONE 20 MG TAB 556820 PREDNISONE Inactive LOVASTATIN 40 MG ORAL TABS Take 1 tab po every hs LOVASTATIN 40 MG ORAL TABS 207512 LOVASTATIN Inactive DILAUDID 2 MG ORAL TABS Take 1/2 tab po every 4 hours as needed for pain 2014 DILAUDID 2 MG ORAL TABS 829401 HYDROMORPHONE HCL Inactive AMITRIPTYLINE HCL 25 MG ORAL TABS 1 q hs prn AMITRIPTYLINE HCL 25 MG ORAL TABS 830264 AMITRIPTYLINE HCL Inactive MECLIZINE HCL 25 MG TAB 1 tablet three times daily for 3 days, then 1/2 tab three times daily for 3 days. MECLIZINE HCL 25 MG TAB 129660 MECLIZINE HCL Inactive AMLODIPINE BESYLATE 5 MG ORAL TABS Take 1 tab po daily AMLODIPINE BESYLATE 5 MG ORAL TABS 717349 AMLODIPINE BESYLATE Inactive TOPIRAMATE 25 MG TABS 1 tab po BID TOPIRAMATE 25 MG TABS 516063 TOPIRAMATE Inactive PREDNISONE 20 MG TAB 1 tablet twice daily for 2 days, then 1 tablet once daily for 2 days PREDNISONE 20 MG TAB 783647 PREDNISONE Inactive PREDNISONE 20 MG TAB 1 tab twice daily for 3 day, then one daily for three days PREDNISONE 20 MG TAB 556468 PREDNISONE Inactive NIFEDIPINE ER 30 MG ORAL [id number] 1 daily NIFEDIPINE ER 30 MG ORAL [id number] NIFEDIPINE Inactive AMLODIPINE BESYLATE 5 MG TABS 1 tablet by mouth daily AMLODIPINE BESYLATE 5 MG TABS 830812 AMLODIPINE BESYLATE Inactive AZITHROMYCIN 250 MG TABS 2 po qd x 1 day, then 1 po qd x 4 days AZITHROMYCIN 250 MG TABS 2285951 AZITHROMYCIN Inactive AZITHROMYCIN 250 MG TABS 2 po qd x 1 day, then 1 po qd x 4 days AZITHROMYCIN 250 MG TABS 9337788 AZITHROMYCIN Inactive PREDNISONE 20 MG TAB 2 po qd x 5 days PREDNISONE 20 MG TAB 679408 PREDNISONE Inactive Vital Signs Date Name Value [...] Panel - Chemistry sodium, serum 137 mmol/L 172-671 9852/01/03 potassium, serum 3.4 mmol/L 3.5-5.2 chloride, serum [...] Magnesium - Chemistry cholesterol, serum 180 mg/dL 820-869 0852/08/08 triglyceride, serum, fasting 92 mg/dL 30-200 HDL cholesterol, serum 66 mg/dL 32-96 LDL cholesterol, serum 96 mg/dL 0-130 sodium, serum 142 mmol/L 238-932 2258/08/08 carbon dioxide, venous blood 27.4 mmol/L 21.0-32.0 [...] 10.0-20.0 Encounters Code Encounter Date Provider Facility CPT-03291 Level 4 Est. Patient 09:15:13 CDT Harinder Cr [facility] CPT-65842 Level 3 Est. Patient 11:51:58 CDT Harinder Cr [facility] CPT-52304 Level 3 Est. Patient 11:30:05 CDT [facility] CPT-36733 Level 4 Est. Patient 10:19:23 CDT [facility] CPT-45531 Level 3 Est. Patient 09:58:58 CDT [facility] CPT-00544 Level 3 Est. Patient 12:37:21 CDT [facility] CPT-90412 Level 3 Est. Patient 18:37:17 CDT [facility] CPT-51079 Level 4 Est. Patient 11:15:54 CDT Nettie Newberry APRN [facility] CPT-31705 Level 3 Est. Patient 16:42:24 CDT Harinder Hernandez [facility] CPT-11699 Level 3 Est. Patient 15:03:36 CDT Harnider Hernandez [facility] CPT-51515 Level 3 Est. Patient 15:03:20 CDT Harinder Hernandez [facility] CPT-23297 Level 3 Est. Patient 12:14:34 CDT Harinder Hernandez [facility] CPT-87343 Level 3 Est. Patient 13:47:15 CDT Harinder Hernandez [facility] CPT-27182 Level 3 Est. Patient 14:08:24 CDT Harinder Hernandez [facility] CPT-71987 Level 3 Est. Patient 10:07:15 CDT Harinder Hernandez [facility] CPT-66172 Level 3 Est. Patient 10:06:59 CDT Harinder Hernandez [facility] CPT-14614 Level 3 Est. Patient 15:53:29 CDT Jae Morgan MD [facility] CPT-68786 Level 3 Est. Patient 17:19:04 CDT Harinder Hernandez [facility] CPT-93694 Level 3 Est. Patient 11:13:01 CDT Harinder Cr David [facility] CPT-61199 Level 3 Est. Patient 09:03:58 CDT Harinder Hernandez [facility] CPT-35196 Level 3 Est. Patient 14:46:45 [employer] Harinder Hernandez [facility] CPT-05961 Level 3 Est. Patient 09:35:49 [employer] Harinder Hernandez [facility] CPT-20760 Level 3 Est. Patient 09:29:37 [employer] Harinder Hernandez [facility] CPT-77116 Level 3 Est. Patient 15:51:07 CDT Harinder Hernandez [facility] CPT-45098 Level 3 Est. Patient 18:13:13 CDT Harinder Hernandez [facility] CPT-84526 Level 3 Est. Patient 10:44:19 CDT Harinder Hernandez [facility] CPT-58668 Level 4 Est. Patient 10:07:19 [employer] Harinder Hernandez [facility] CPT-41204 Level 3 Est. Patient 15:59:32 [employer] Harinder Cr [facility] Procedures Code Procedure Name Date Entry Date Standard Description CPT-93000 Hip, complete, 2-3 views - XRAY USE ONLY 10:28:40 CDT CPT-11238 BMP - LAB USE ONLY 16:45:09 [employer] CPT-13473 Port a cath flush 12:00:13 [employer] CPT-TCMM Transitional Care Mgmt-Moderate 11:20:16 [employer] CPT-06064 First Vx - Ix admin for Medicare patients 17:35:15 CDT CPT-90160 Fluzone Preservative Free Intramuscular Suspension 17:35 :15 CDT CPT-35633 Microalbumin - LAB USE ONLY 11:52:05 CDT CPT-TCMM Transitional Care Mgmt-Moderate 11:33:57 CDT CPT-09248 No Charge Offi Visit 14:11:29 CDT CPT-41539 Magnesium - LAB USE ONLY 10:45:44 CDT CPT-68416 Lipid - LAB USE ONLY 10:45:44 CDT CPT-33536 CBC - LAB USE ONLY 10:45:44 CDT CPT-67496 Venipuncture Draw Fee 10:45:43 CDT CPT-43898 Venipuncture Draw Fee 18:21:27 CDT CPT-JTINJ Asp/Joint Injection 18:38:04 CDT CPT-73270 Immunization Each Additional Inj 17:38:04 CDT CPT-65754 Immunization Single Admin 17:38:04 CDT CPT-51301 Prevnar 13 17:38:04 CDT CPT-12162 Fluzone Quadrivalent preservative free (>=3yrs.) 17:38: 04 CDT CPT-31300 No Charge Offi Visit 11:14:03 CDT CPT-61211 Chest 2V Frontal and Lat 14:00:18 CDT CPT-OV Office Visit 16:10:28 CDT CPT-JTINJ Asp/Joint Injection 09:03:57 CDT CPT-Cryo Cryotherapy 09:35:49 [employer] CPT-JTINJ Asp/Joint Injection 09:34:45 [employer] CPT-J2930 Solu Medrol 125 mg (Methyl Prednisolone Sodium Succinate) 20:37:27 CDT CPT-87631 Abx/Therapy Injection 20:37:27 CDT CPT-33432 Port a cath flush 08:15:51 CDT CPT-22939 Port a cath flush 09:54:16 CDT CPT-76542 Port a cath flush 09:38:02 CDT CPT-89718 Port a cath flush 11:00:27 [employer]
--- OUTSIDE RECORDS SUMMARY | 2017-12-29 02:26 | XMS REPORT | Clinical Summary ---
Author Author Admin, QIE Organization [facility] Address Unknown Phone Unavailable Allergies, Adverse [...] MG/0.3ML INJ SOAJ 1 INJ NEEDED EPINEPHRINE 76959525129 Active Tawnya Pardo MA Active PREDNISONE 20 MG TAB 1 tab twice daily for 3 day, then one daily for three days PREDNISONE 57166552189 No Longer Active Harinder Hernandez DO Active PREDNISONE 20 MG TAB 1 tablet twice daily for 2 days, then 1 tablet once daily for 2 days PREDNISONE 18402754885 No Longer Active Harinder Hernandez DO Active ASMANEX 120 METERED DOSES 220 MCG/INH INH AEPB 2 puffs orally twice daily MOMETASONE FUROATE 21051105352 Active Jeri Sosa RPT,RMA Active NIFEDIPINE ER 30 MG ORAL [id number] 1 daily NIFEDIPINE 68991352092 Active Kaylah Newberry Active TOPIRAMATE 25 MG TABS 1 tab po BID TOPIRAMATE 15420630603 No Longer Active Nettie Newberry APRN Active AMLODIPINE BESYLATE 5 MG ORAL TABS Take 1 tab po daily AMLODIPINE BESYLATE 63993735534 No Longer Active Nettie Newberry APRN Active MECLIZINE HCL 25 MG TAB 1 tablet three times daily for 3 days, then 1/2 tab three times daily for 3 days. MECLIZINE HCL 04954181564 No Longer Active Nettie Newberry APRN Active AMITRIPTYLINE HCL 25 MG ORAL TABS 1 q hs prn AMITRIPTYLINE HCL 59305142917 No Longer Active Nettie Newberry APRN Active DILAUDID 2 MG ORAL TABS Take 1/2 tab po every 4 hours as needed for pain 2014 HYDROMORPHONE HCL 56608531510 No Longer Active Nettie Newberry APRN Active CLOPIDOGREL BISULFATE 75 MG ORAL TABS 1 tab by mouth once daily CLOPIDOGREL BISULFATE 45107024287 Active Tawnya Pardo MA Active ATORVASTATIN CALCIUM 10 MG ORAL TABS 1 at bedtime ATORVASTATIN CALCIUM 84562964635 Active Tawnya Pardo MA Active LOVASTATIN 40 MG ORAL TABS Take 1 tab po every hs LOVASTATIN 84101267558 No Longer Active Harinder Hernandez DO Active PREDNISONE 20 MG TAB 2 tabs daily for 4 days, 1 tab daily for 4 days, 1/2 tab daily for 4 days PREDNISONE 89174788756 No Longer Active Harinder Hernandez DO Active LEVAQUIN 500 MG ORAL TABS Take 1 tab po daily x 8 days LEVOFLOXACIN 69395941425 No Longer Active Harinder Hernandez DO Active VENTOLIN HFA 108 (90 BASE) MCG/ACT AERS 2 -4 puffs four times a day PRN 2013 ALBUTEROL SULFATE 05922022443 No Longer Active Jeri Sosa RPT,RMA Active ACEBUTOLOL HCL 200 MG CAPS 1 cap in the morning and 2 caps in the evening ACEBUTOLOL HCL 87047198361 No Longer Active Harinder Hernandez DO Active CEFDINIR 300 MG ORAL CAPS take 1 cap po bid x 10 days CEFDINIR 32107020174 No Longer Active Harinder Hernandez DO Active LOVASTATIN 40 MG TABS 1 pill by mouth nightly for cholesterol LOVASTATIN 09311833680 No Longer Active Nettie Newberry APRN Active NITROSTAT 0.4 MG SUBL 1 tab under tongueas needed for chest pain ( may take 3 total, 5 min apart, then call 911) NITROGLYCERIN 79976770087 No Longer Active Nettie Newberry APRN Active POTASSIUM CHLORIDE CR 10 MEQ CPCR 1 capsule by mouth daily 02/14 POTASSIUM CHLORIDE 52041872723 No Longer Active Nettie Newberry APRN Active TESSALON PERLES 100 MG CAP 1 to 2 tablets by mouth 3 times daily as needed for cough BENZONATATE 08360845608 No Longer Active Nettie Newberry APRN Active THEOPHYLLINE ER 200 MG ORAL [id number] Take 1 tab every 12 hours THEOPHYLLINE 94135947687 Active Tawnya Pardo MA Active PREDNISONE 20 MG TAB 2 po qd x 5 days PREDNISONE 93019516921 No Longer Active Jae Morgan MD Active AZITHROMYCIN 250 MG TABS 2 po qd x 1 day, then 1 po qd x 4 days AZITHROMYCIN 48758112229 No Longer Active Jae Morgan MD Active PREDNISONE 20 MG TAB 1 tab twice daily for 3 day, then one daily for three days PREDNISONE 29077302042 No Longer Active Jae Morgan MD Active SINGULAIR 10 MG TABS 1 pill by mouth every evening for breathing. MONTELUKAST SODIUM 95767802104 Active Tawnya Pardo MA Active TYLENOL 325 MG TAB 3 by mouth q4h as needed ACETAMINOPHEN 76260089629 Active Harinder Hernandez DO Active POTASSIUM CHLORIDE ER 10 MEQ CR-TABS take 1 tab po daily POTASSIUM CHLORIDE 49046935670 No Longer Active Harinder Hernandez DO Active PREDNISONE 20 MG TAB 1 TID x 2 days, then 1 BID x 3 days, then 1 Daily x 3 days, then stop PREDNISONE 88387531312 No Longer Active John Montemayor APRN Active LEVAQUIN 500 MG TAB 1 tablet by mouth daily LEVOFLOXACIN 97056972950 No Longer Active Jillkvng Montemayor APRN Active NEURONTIN 300 MG CAP 1 cap by mouth three times daily for restless leg 06/22 GABAPENTIN 26917286165 No Longer Active Harinder Hernandez DO Active BENZONATATE 100 MG CAPS 1 cap po TID PRN BENZONATATE 46471583153 No Longer Active Harinder Hernandez DO Active MONTELUKAST SODIUM 10 MG TABS 1 tab po in the evening MONTELUKAST SODIUM 69971004602 No Longer Active Harinder Hernandez DO Active MUPIROCIN 2 % OINT apply to affected area BID x 14 days MUPIROCIN 34801726142 No Longer Active Harinder Hernandez DO Active TYLENOL EXTRA STRENGTH 500 MG TABS as needed ACETAMINOPHEN 46771963205 No Longer Active Harinder Hernandez DO Active PREDNISONE 10 MG TABS 1 tab po daily PREDNISONE 02978450225 No Longer Active Harinder Hernandez DO Active PREDNISONE 20 MG TAB 2 tabs daily for 4 days, 1 tab daily for 4 days, 1/2 tab daily for 4 days PREDNISONE 86731160210 No Longer Active Harinder Hernandez DO Active AZITHROMYCIN 250 MG TABS 2 po qd x 1 day, then 1 po qd x 4 days AZITHROMYCIN 06388985538 No Longer Active Harinder Hernandez DO Active PREDNISONE 20 MG TAB 3 tabs today, then 1 tab twice daily for 3 day, then one daily for three days PREDNISONE 06680074220 No Longer Active Harinder Hernandez DO Active NIFEDIAC CC 30 MG [id number] 1 tablet daily for raynaud's syndrome NIFEDIPINE 67213553390 No Longer Active Tawnya Pardo MA Active AMBIEN 10 MG TAB 1/2 tab by mouth at bedtime as needed for sleep ZOLPIDEM TARTRATE 53560993398 Active Harinder Hernandez DO Active CLONAZEPAM 1 MG TABS 1 tablet at bedtime for insomnia and restless legs 09/14 CLONAZEPAM 61539348305 Active Kaylah Newberry Active CLONAZEPAM 0.5 MG TABS 1 tab po daily CLONAZEPAM 32694940170 No Longer Active Harinder Hernandez DO Active PREDNISONE 10 MG TAB 1 tablet daily for COPD PREDNISONE 96570590617 Active Tawnya Pardo MA Active PROAIR HFA 108 (90 BASE) MCG/ACT AERS 2 puffs four times a day as needed 2012 ALBUTEROL SULFATE 79295972355 Active Tawnya Pardo MA Active FLOVENT HFA 110 MCG/ACT AERO 2 puffs inhaled b.i.d. FLUTICASONE PROPIONATE HFA 07633683775 Active Tawnya Pardo MA Active ACIPHEX 20 MG TBEC 1 tab po daily RABEPRAZOLE SODIUM 07030742614 Active Kaylah Newberry Active CLONAZEPAM 0.5 MG TABS 1 tab po daily CLONAZEPAM 0.5 MG TABS 368230 CLONAZEPAM Inactive PREDNISONE 20 MG TAB 3 tabs today, then 1 tab twice daily for 3 day, then one daily for three days PREDNISONE 20 MG TAB 771812 PREDNISONE Inactive PREDNISONE 20 MG TAB 2 tabs daily for 4 days, 1 tab daily for 4 days, 1/2 tab daily for 4 days PREDNISONE 20 MG TAB 124110 PREDNISONE Inactive PREDNISONE 10 MG TABS 1 tab po daily PREDNISONE 10 MG TABS 570970 PREDNISONE Inactive TYLENOL EXTRA STRENGTH 500 MG TABS as needed TYLENOL EXTRA STRENGTH 500 MG TABS 742692 ACETAMINOPHEN Inactive MUPIROCIN 2 % OINT apply to affected area BID x 14 days MUPIROCIN 2 % OINT 713757 MUPIROCIN Inactive MONTELUKAST SODIUM 10 MG TABS 1 tab po in the evening MONTELUKAST SODIUM 10 MG TABS 884361 MONTELUKAST SODIUM Inactive BENZONATATE 100 MG CAPS 1 cap po TID PRN BENZONATATE 100 MG CAPS 308170 BENZONATATE Inactive NEURONTIN 300 MG CAP 1 cap by mouth three times daily for restless leg 06/22 NEURONTIN 300 MG CAP 860212 GABAPENTIN Inactive LEVAQUIN 500 MG TAB 1 tablet by mouth daily LEVAQUIN 500 MG TAB 023649 LEVOFLOXACIN Inactive PREDNISONE 20 MG TAB 1 TID x 2 days, then 1 BID x 3 days, then 1 Daily x 3 days, then stop PREDNISONE 20 MG TAB 371321 PREDNISONE Inactive POTASSIUM CHLORIDE ER 10 MEQ CR-TABS take 1 tab po daily POTASSIUM CHLORIDE ER 10 MEQ CR-TABS POTASSIUM CHLORIDE Inactive PREDNISONE 20 MG TAB 1 tab twice daily for 3 day, then one daily for three days PREDNISONE 20 MG TAB 477473 PREDNISONE Inactive TESSALON PERLES 100 MG CAP 1 to 2 tablets by mouth 3 times daily as needed for cough TESSALON PERLES 100 MG CAP 747421 BENZONATATE Inactive POTASSIUM CHLORIDE CR 10 MEQ CPCR 1 capsule by mouth daily 02/14 POTASSIUM CHLORIDE CR 10 MEQ CPCR POTASSIUM CHLORIDE Inactive NITROSTAT 0.4 MG SUBL 1 tab under tongueas needed for chest pain ( may take 3 total, 5 min apart, then call 911) NITROSTAT 0.4 MG SUBL 604094 NITROGLYCERIN Inactive LOVASTATIN 40 MG TABS 1 pill by mouth nightly for cholesterol LOVASTATIN 40 MG TABS 667959 LOVASTATIN Inactive CEFDINIR 300 MG ORAL CAPS take 1 cap po bid x 10 days CEFDINIR 300 MG ORAL CAPS 110474 CEFDINIR Inactive ACEBUTOLOL HCL 200 MG CAPS 1 cap in the morning and 2 caps in the evening ACEBUTOLOL HCL 200 MG CAPS 954367 ACEBUTOLOL HCL Inactive VENTOLIN HFA 108 (90 BASE) MCG/ACT AERS 2 -4 puffs four times a day PRN 2013 VENTOLIN HFA 108 (90 BASE) MCG/ACT AERS ALBUTEROL SULFATE Inactive LEVAQUIN 500 MG ORAL TABS Take 1 tab po daily x 8 days LEVAQUIN 500 MG ORAL TABS 595131 LEVOFLOXACIN Inactive PREDNISONE 20 MG TAB 2 tabs daily for 4 days, 1 tab daily for 4 days, 1/2 tab daily for 4 days PREDNISONE 20 MG TAB 939006 PREDNISONE Inactive LOVASTATIN 40 MG ORAL TABS Take 1 tab po every hs LOVASTATIN 40 MG ORAL TABS 383390 LOVASTATIN Inactive DILAUDID 2 MG ORAL TABS Take 1/2 tab po every 4 hours as needed for pain 2014 DILAUDID 2 MG ORAL TABS 629561 HYDROMORPHONE HCL Inactive AMITRIPTYLINE HCL 25 MG ORAL TABS 1 q hs prn AMITRIPTYLINE HCL 25 MG ORAL TABS 968967 AMITRIPTYLINE HCL Inactive MECLIZINE HCL 25 MG TAB 1 tablet three times daily for 3 days, then 1/2 tab three times daily for 3 days. MECLIZINE HCL 25 MG TAB 713930 MECLIZINE HCL Inactive AMLODIPINE BESYLATE 5 MG ORAL TABS Take 1 tab po daily AMLODIPINE BESYLATE 5 MG ORAL TABS 184527 AMLODIPINE BESYLATE Inactive TOPIRAMATE 25 MG TABS 1 tab po BID TOPIRAMATE 25 MG TABS 724012 TOPIRAMATE Inactive PREDNISONE 20 MG TAB 1 tablet twice daily for 2 days, then 1 tablet once daily for 2 days PREDNISONE 20 MG TAB 823177 PREDNISONE Inactive PREDNISONE 20 MG TAB 1 tab twice daily for 3 day, then one daily for three days PREDNISONE 20 MG TAB 119523 PREDNISONE Inactive AZITHROMYCIN 250 MG TABS 2 po qd x 1 day, then 1 po qd x 4 days AZITHROMYCIN 250 MG TABS 1197349 AZITHROMYCIN Inactive AZITHROMYCIN 250 MG TABS 2 po qd x 1 day, then 1 po qd x 4 days AZITHROMYCIN 250 MG TABS 1166998 AZITHROMYCIN Inactive PREDNISONE 20 MG TAB 2 po qd x 5 days PREDNISONE 20 MG TAB 861444 PREDNISONE Inactive Vital Signs Date Name Value [...] Magnesium - Chemistry cholesterol, serum 180 mg/dL 163-766 0742/08/08 triglyceride, serum, fasting 92 mg/dL 30-200 HDL cholesterol, serum 66 mg/dL 32-96 LDL cholesterol, serum 96 mg/dL 0-130 sodium, serum 142 mmol/L 105-824 8425/08/08 carbon dioxide, venous blood 27.4 mmol/L 21.0-32.0 [...] 10.0-20.0 Encounters Code Encounter Date Provider Facility CPT-26465 Level 3 Est. Patient 09:58:58 CDT Harinder Cr [facility] CPT-33436 Level 3 Est. Patient 12:37:21 CDT Harinder Cr [facility] CPT-59564 Level 3 Est. Patient 18:37:17 CDT Harinder Cr [facility] CPT-78006 Level 4 Est. Patient 11:15:54 CDT Nettie Newberry APRN [facility] CPT-24068 Level 3 Est. Patient 16:42:24 CDT Harinder Cr [facility] CPT-17033 Level 3 Est. Patient 15:03:36 CDT Harinder Cr [facility] CPT-18522 Level 3 Est. Patient 15:03:20 CDT Harinder Hernandez [facility] CPT-97893 Level 3 Est. Patient 12:14:34 CDT Harinder Hernandez [facility] CPT-69886 Level 3 Est. Patient 13:47:15 CDT Harinder Hernandez [facility] CPT-29422 Level 3 Est. Patient 14:08:24 CDT Harinder Hernandez [facility] CPT-45925 Level 3 Est. Patient 10:07:15 CDT Harinder Hernandez [facility] CPT-11288 Level 3 Est. Patient 10:06:59 CDT Harinder Hernandez [facility] CPT-22804 Level 3 Est. Patient 15:53:29 CDT Jae Morgan MD [facility] CPT-04868 Level 3 Est. Patient 17:19:04 CDT Harinder Hernandez [facility] CPT-51751 Level 3 Est. Patient 11:13:01 CDT Harinder Hernandez [facility] CPT-84585 Level 3 Est. Patient 09:03:58 CDT Harinder Hernandez [facility] CPT-42470 Level 3 Est. Patient 14:46:45 SALES TECHNICIAN Harinder Hernandez [facility] CPT-32142 Level 3 Est. Patient 09:35:49 SALES TECHNICIAN Harinder Hernandez [facility] CPT-06562 Level 3 Est. Patient 09:29:37 SALES TECHNICIAN Harinder Hernandez [facility] CPT-03094 Level 3 Est. Patient 15:51:07 CDT Harinder Hernandez [facility] CPT-75329 Level 3 Est. Patient 18:13:13 CDT Harinder Cr [facility] CPT-95635 Level 3 Est. Patient 10:44:19 CDT Harinder Hernandez [facility] CPT-81976 Level 4 Est. Patient 10:07:19 SALES TECHNICIAN Harinder Hernandez [facility] CPT-18970 Level 3 Est. Patient 15:59:32 SALES TECHNICIAN Harinder Cr [facility] Procedures Code Procedure Name Date Entry Date Standard Description CPT-75606 First Vx - Ix admin for Medicare patients 17:35:15 CDT CPT-94692 Fluzone Preservative Free Intramuscular Suspension 17:35 :15 CDT CPT-38575 Microalbumin - LAB USE ONLY 11:52:05 CDT CPT-TCMM Transitional Care Mgmt-Moderate 11:33:57 CDT CPT-76094 No Charge Offi Visit 14:11:29 CDT CPT-04524 Magnesium - LAB USE ONLY 10:45:44 CDT CPT-25184 Lipid - LAB USE ONLY 10:45:44 CDT CPT-45565 CBC - LAB USE ONLY 10:45:44 CDT CPT-86116 Venipuncture Draw Fee 10:45:43 CDT CPT-20672 Venipuncture Draw Fee 18:21:27 CDT CPT-JTINJ Asp/Joint Injection 18:38:04 CDT CPT-13749 Immunization Each Additional Inj 17:38:04 CDT CPT-87046 Immunization Single Admin 17:38:04 CDT CPT-81750 Prevnar 13 17:38:04 CDT CPT-61880 Fluzone Quadrivalent preservative free (>=3yrs.) 17:38: 04 CDT CPT-13651 No Charge Offi Visit 11:14:03 CDT CPT-40298 Chest 2V Frontal and Lat 14:00:18 CDT CPT-OV Office Visit 16:10:28 CDT CPT-JTINJ Asp/Joint Injection 09:03:57 CDT CPT-Cryo Cryotherapy 09:35:49 SALES TECHNICIAN CPT-JTINJ Asp/Joint Injection 09:34:45 SALES TECHNICIAN CPT-J2930 Solu Medrol 125 mg (Methyl Prednisolone Sodium Succinate) 20:37:27 CDT CPT-83274 Abx/Therapy Injection 20:37:27 CDT CPT-50927 Port a cath flush 08:15:51 CDT CPT-44575 Port a cath flush 09:54:16 CDT CPT-03878 Port a cath flush 09:38:02 CDT CPT-42177 Port a cath flush 11:00:27 SALES TECHNICIAN
--- OUTSIDE RECORDS SUMMARY | 2017-12-29 02:28 | XMS REPORT | Clinical Summary ---
Author Author Admin, QIE Organization [facility] Address Unknown Phone Unavailable Allergies, Adverse Reactions, [...] cerebrovascular disease Diarrhea, chronic 787.91 Active Harinder Hernanedz DO Diarrhea Reflux, esophageal 530.81 Active Harinder [...] Kortney Mccain Sacroiliitis, right ICD-720.2 Inactive Harinder Hernnadez DO Biceps tendinitis, left ICD-726.12 Inactive Harinder [...] TABLET 1 tablet by mouth daily SPIRONOLACTONE 97167268333 No Longer Active Jeri Nieto Active PREDNISONE 20 MG ORAL TABLET 2 tablets by mouth today, then 1 tablet by mouth days 2-3 PREDNISONE 77823585417 No Longer Active Jeri Nieto Active NITROSTAT 0.4 MG SUBLINGUAL TABLET SUBLINGUAL 1 tab SL q5min PRN chest pain NITROGLYCERIN 69345851082 Active Meenu Alejo LPN Active THEOPHYLLINE ER 300 MG ORAL TABLET EXTENDED RELEASE 12 HOUR 1 po BID THEOPHYLLINE 85707622307 Active Kortney Mccain Active POTASSIUM CHLORIDE ER 20 MEQ ORAL TABLET EXTENDED RELEASE 1 po q day POTASSIUM CHLORIDE 77502852489 Active Kortney Mccain Active POTASSIUM CHLORIDE 20 MEQ ORAL PACKET 1 tab po q day POTASSIUM CHLORIDE 45309469973 No Longer Active Kortney Mccain Active POTASSIUM CHLORIDE ER 10 MEQ ORAL CAPSULE EXTENDED RELEASE 1 capsule BID 2016 POTASSIUM CHLORIDE 32595503757 No Longer Active Kortney Mccain Active LASIX 20 MG ORAL TABLET 1 tablet by mouth every morning FUROSEMIDE 28695976818 No Longer Active Kortney Mccain Active FLUOXETINE HCL 10 MG ORAL CAPSULE 1 po qd for depression/anxiety FLUOXETINE HCL 79758482446 Active Meenu Alejo LPN Active VOLTAREN 1 % TRANSDERMAL GEL apply q 6-8 hour to left arm as needed for pain DICLOFENAC SODIUM 49474819075 Active Kortney Mccain Active ALBUTEROL SULFATE (2.5 MG/3ML) 0.083% INHALATION NEBULIZATION SOLUTION 1 vial neb q 4hrs for severe asthma. 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 NIFEDIPINE 06421501117 Active Kortney Mccain Active AMLODIPINE BESYLATE 5 MG ORAL TABLET 1 tablet by mouth daily 2016 AMLODIPINE BESYLATE 46315564057 No Longer Active Harinder Hernandez DO Active TOPAMAX 25 MG ORAL TABLET 1 tab po BID TOPIRAMATE 09121215633 Active Kortney Mccain Active FLUTICASONE PROPIONATE 50 MCG/ACT NASAL SUSPENSION 2 sprays per nostril daily PRN Allergies FLUTICASONE PROPIONATE 18723249124 Active Meenu Alejo LPN Active NIFEDIPINE ER 30 MG ORAL TABLET EXTENDED RELEASE 24 HOUR 1 daily NIFEDIPINE 74823207484 No Longer Active Harinder Hernandez DO Active FLOVENT HFA 110 MCG/ACT INHALATION AEROSOL 2 puffs inhaled b.i.d. FLUTICASONE PROPIONATE HFA 73534310455 Active Harinder Hernandez DO Active EPIPEN 2-BRUNA 0.3 MG/0.3ML INJECTION SOLUTION AUTO-INJECTOR 1 INJ NEEDED EPINEPHRINE 69819987617 Active Meenu Alejo LPN Active PREDNISONE 20 MG ORAL TABLET 1 tab twice daily for 3 day, then one daily for three days PREDNISONE 10103669683 No Longer Active Harinder Hernandez DO Active PREDNISONE 20 MG ORAL TABLET 1 tablet twice daily for 2 days, then 1 tablet once daily for 2 days PREDNISONE 54243113905 No Longer Active Harinder Hernandez DO Active ASMANEX 120 METERED DOSES 220 MCG/INH INHALATION AEROSOL POWDER BREATH ACTIVATED 2 puffs orally twice daily MOMETASONE FUROATE 43783194940 Active Jeri Sosa LPN Active TOPIRAMATE 25 MG ORAL TABLET 1 tab po BID TOPIRAMATE 45999054584 No Longer Active Nettie Newberry MAHENDRA Active AMLODIPINE BESYLATE 5 MG ORAL TABLET Take 1 tab po daily AMLODIPINE BESYLATE 58768006517 No Longer Active Nettie Newberry MAHENDRA Active MECLIZINE HCL 25 MG ORAL TABLET 1 tablet three times daily for 3 days, then 1/ 2 tab three times daily for 3 days. MECLIZINE HCL 21248924279 No Longer Active Nettie King MAHENDRA Active AMITRIPTYLINE HCL 25 MG ORAL TABLET 1 q hs prn AMITRIPTYLINE HCL 84647123337 No Longer Active Nettie Newberry MAHENDRA Active DILAUDID 2 MG ORAL TABLET Take 1/2 tab po every 4 hours as needed for pain HYDROMORPHONE HCL 95092536943 No Longer Active Nettiego Newberry APRN Active CLOPIDOGREL BISULFATE 75 MG ORAL TABLET 1 tab by mouth once daily CLOPIDOGREL BISULFATE 38075431455 Active Meenu Alejo LPN Active ATORVASTATIN CALCIUM 10 MG ORAL TABLET 1 at bedtime ATORVASTATIN CALCIUM 36420814889 Active Kortney Mccain Active LOVASTATIN 40 MG ORAL TABLET Take 1 tab po every hs LOVASTATIN 59287116425 No Longer Active Harinder Hernandez DO Active PREDNISONE 20 MG ORAL TABLET 2 tabs daily for 4 days, 1 tab daily for 4 days, 1/2 tab daily for 4 days PREDNISONE 44293703469 No Longer Active Harinder Hernandez DO Active LEVAQUIN 500 MG ORAL TABLET Take 1 tab po daily x 8 days LEVOFLOXACIN 69038928671 No Longer Active Harinder Hernandez DO Active VENTOLIN HFA 108 (90 Base) MCG/ACT INHALATION AEROSOL SOLUTION 2 -4 puffs four times a day PRN ALBUTEROL SULFATE 56511124984 No Longer Active Jeri Sosa LPN Active ACEBUTOLOL HCL 200 MG ORAL CAPSULE 1 cap in the morning and 2 caps in the evening ACEBUTOLOL HCL 69876165350 No Longer Active Harinder Hernandez DO Active CEFDINIR 300 MG ORAL CAPSULE take 1 cap po bid x 10 days CEFDINIR 90473064064 No Longer Active Harinder Hernandez DO Active LOVASTATIN 40 MG ORAL TABLET 1 pill by mouth nightly for cholesterol LOVASTATIN 47164101150 No Longer Active Nettie Newberry APRN Active NITROSTAT 0.4 MG SUBLINGUAL TABLET SUBLINGUAL 1 tab under tongueas needed for chest pain ( may take 3 total, 5 min apart, then call 911) NITROGLYCERIN 88650353548 No Longer Active Nettie Newberry APRN Active POTASSIUM CHLORIDE ER 10 MEQ ORAL CAPSULE EXTENDED RELEASE 1 capsule by mouth daily POTASSIUM CHLORIDE 73840070001 No Longer Active Nettie Newberry APRN Active TESSALON PERLES 100 MG ORAL CAPSULE 1 to 2 tablets by mouth 3 times daily as needed for cough BENZONATATE 31156489603 No Longer Active Nettie Newberry APRN Active PREDNISONE 20 MG ORAL TABLET 2 po qd x 5 days PREDNISONE 86529764281 No Longer Active Jae Morgan MD Active AZITHROMYCIN 250 MG ORAL TABLET 2 po qd x 1 day, then 1 po qd x 4 days 12/30 AZITHROMYCIN 56163500344 No Longer Active Jae Morgan MD Active PREDNISONE 20 MG ORAL TABLET 1 tab twice daily for 3 day, then one daily for three days PREDNISONE 84620256731 No Longer Active Jae Morgan MD Active SINGULAIR 10 MG ORAL TABLET 1 pill by mouth every evening for breathing. 2014 MONTELUKAST SODIUM 81948268892 Active Meenu Alejo LPN Active TYLENOL 325 MG ORAL TABLET 3 by mouth q4h as needed ACETAMINOPHEN 26882361007 Active Harinder Hernandez DO Active POTASSIUM CHLORIDE ER 10 MEQ ORAL TABLET EXTENDED RELEASE take 1 tab po daily POTASSIUM CHLORIDE 40324743536 No Longer Active Harinder Hernandez DO Active PREDNISONE 20 MG ORAL TABLET 1 TID x 2 days, then 1 BID x 3 days, then 1 Daily x 3 days, then stop PREDNISONE 78628955475 No Longer Active Jialec Montemayor APRN Active LEVAQUIN 500 MG ORAL TABLET 1 tablet by mouth daily LEVOFLOXACIN 17974449272 No Longer Active Jillina Frazell ACTING PROFESSOR Active NEURONTIN 300 MG ORAL CAPSULE 1 cap by mouth three times daily for restless leg GABAPENTIN 15544997191 No Longer Active Harinder Hernandez DO Active BENZONATATE 100 MG ORAL CAPSULE 1 cap po TID PRN BENZONATATE 61019671790 No Longer Active Harinder Hernandez DO Active MONTELUKAST SODIUM 10 MG ORAL TABLET 1 tab po in the evening 2014 MONTELUKAST SODIUM 04486583251 No Longer Active Harinder Hernandez DO Active MUPIROCIN 2 % EXTERNAL OINTMENT apply to affected area BID x 14 days MUPIROCIN 17986144502 No Longer Active Harinder Hernandez DO Active TYLENOL EXTRA STRENGTH 500 MG ORAL TABLET as needed ACETAMINOPHEN 31067949806 No Longer Active Harinder Hernandez DO Active PREDNISONE 10 MG ORAL TABLET 1 tab po daily PREDNISONE 85698871794 No Longer Active Harinder Hernandez DO Active PREDNISONE 20 MG ORAL TABLET 2 tabs daily for 4 days, 1 tab daily for 4 days, 1/2 tab daily for 4 days PREDNISONE 60902674006 No Longer Active Harinder Hernandez DO Active AZITHROMYCIN 250 MG ORAL TABLET 2 po qd x 1 day, then 1 po qd x 4 days 04/06 AZITHROMYCIN 52810466841 No Longer Active Harinder Hernandez DO Active PREDNISONE 20 MG ORAL TABLET 3 tabs today, then 1 tab twice daily for 3 day, then one daily for three days PREDNISONE 98079932180 No Longer Active Harinder Hernandez DO Active NIFEDIAC CC 30 MG ORAL TABLET EXTENDED RELEASE 24 HOUR 1 tablet daily for raynaud's syndrome NIFEDIPINE 19601282732 No Longer Active Tawnya Pardo MA Active AMBIEN 10 MG ORAL TABLET 1/2 tab by mouth at bedtime as needed for sleep 2013 ZOLPIDEM TARTRATE 35824427875 Active Meenu Alejo LPN Active CLONAZEPAM 1 MG ORAL TABLET 1 tablet at bedtime for insomnia and restless legs CLONAZEPAM 18836322565 Active Meenu Alejo LPN Active CLONAZEPAM 0.5 MG ORAL TABLET 1 tab po daily CLONAZEPAM 07829847509 No Longer Active Harinder Hernandez DO Active PREDNISONE 10 MG ORAL TABLET 1 tablet daily for COPD PREDNISONE 91648030246 Active Kortney Mccain Active PROAIR HFA 108 (90 Base) MCG/ACT INHALATION AEROSOL SOLUTION 2 puffs four times a day as needed ALBUTEROL SULFATE 57692181164 Active Harinder Hernandez DO Active FLOVENT HFA 110 MCG/ACT INHALATION AEROSOL 2 puffs inhaled b.i.d. FLUTICASONE PROPIONATE HFA 28023537141 Active Kotrney Mccain Active ACIPHEX 20 MG ORAL TABLET DELAYED RELEASE 1 tab po daily RABEPRAZOLE SODIUM 36030951207 Active Meenu Alejo LPN Active CLONAZEPAM 0.5 MG ORAL TABLET 1 tab po daily CLONAZEPAM 0.5 MG ORAL TABLET 668129 CLONAZEPAM Inactive PREDNISONE 20 MG ORAL TABLET 3 tabs today, then 1 tab twice daily for 3 day, then one daily for three days PREDNISONE 20 MG ORAL TABLET 462244 PREDNISONE Inactive PREDNISONE 20 MG ORAL TABLET 2 tabs daily for 4 days, 1 tab daily for 4 days, 1/2 tab daily for 4 days PREDNISONE 20 MG ORAL TABLET 172449 PREDNISONE Inactive PREDNISONE 10 MG ORAL TABLET 1 tab po daily PREDNISONE 10 MG ORAL TABLET 682565 PREDNISONE Inactive TYLENOL EXTRA STRENGTH 500 MG ORAL TABLET as needed TYLENOL EXTRA STRENGTH 500 MG ORAL TABLET 719378 ACETAMINOPHEN Inactive MUPIROCIN 2 % EXTERNAL OINTMENT apply to affected area BID x 14 days MUPIROCIN 2 % EXTERNAL OINTMENT 790579 MUPIROCIN Inactive MONTELUKAST SODIUM 10 MG ORAL TABLET 1 tab po in the evening 2014 MONTELUKAST SODIUM 10 MG ORAL TABLET 027031 MONTELUKAST SODIUM Inactive BENZONATATE 100 MG ORAL CAPSULE 1 cap po TID PRN BENZONATATE 100 MG ORAL CAPSULE 080646 BENZONATATE Inactive NEURONTIN 300 MG ORAL CAPSULE 1 cap by mouth three times daily for restless leg NEURONTIN 300 MG ORAL CAPSULE 819460 GABAPENTIN Inactive LEVAQUIN 500 MG ORAL TABLET 1 tablet by mouth daily LEVAQUIN 500 MG ORAL TABLET 832345 LEVOFLOXACIN Inactive PREDNISONE 20 MG ORAL TABLET 1 TID x 2 days, then 1 BID x 3 days, then 1 Daily x 3 days, then stop PREDNISONE 20 MG ORAL TABLET 336046 PREDNISONE Inactive POTASSIUM CHLORIDE ER 10 MEQ ORAL TABLET EXTENDED RELEASE take 1 tab po daily POTASSIUM CHLORIDE ER 10 MEQ ORAL TABLET EXTENDED RELEASE POTASSIUM CHLORIDE Inactive PREDNISONE 20 MG ORAL TABLET 1 tab twice daily for 3 day, then one daily for three days PREDNISONE 20 MG ORAL TABLET 447552 PREDNISONE Inactive TESSALON PERLES 100 MG ORAL CAPSULE 1 to 2 tablets by mouth 3 times daily as needed for cough TESSALON PERLES 100 MG ORAL CAPSULE 297286 BENZONATATE Inactive POTASSIUM CHLORIDE ER 10 MEQ ORAL CAPSULE EXTENDED RELEASE 1 capsule by mouth daily POTASSIUM CHLORIDE ER 10 MEQ ORAL CAPSULE EXTENDED RELEASE POTASSIUM CHLORIDE Inactive NITROSTAT 0.4 MG SUBLINGUAL TABLET SUBLINGUAL 1 tab under tongueas needed for chest pain ( may take 3 total, 5 min apart, then call 911) NITROSTAT 0.4 MG SUBLINGUAL TABLET SUBLINGUAL 173447 NITROGLYCERIN Inactive LOVASTATIN 40 MG ORAL TABLET 1 pill by mouth nightly for cholesterol LOVASTATIN 40 MG ORAL TABLET 210306 LOVASTATIN Inactive CEFDINIR 300 MG ORAL CAPSULE take 1 cap po bid x 10 days CEFDINIR 300 MG ORAL CAPSULE 485888 CEFDINIR Inactive ACEBUTOLOL HCL 200 MG ORAL CAPSULE 1 cap in the morning and 2 caps in the evening ACEBUTOLOL HCL 200 MG ORAL CAPSULE 818626 ACEBUTOLOL HCL Inactive VENTOLIN HFA 108 (90 Base) MCG/ACT INHALATION AEROSOL SOLUTION 2 -4 puffs four times a day PRN VENTOLIN HFA 108 (90 Base) MCG/ ACT INHALATION AEROSOL SOLUTION ALBUTEROL SULFATE Inactive LEVAQUIN 500 MG ORAL TABLET Take 1 tab po daily x 8 days LEVAQUIN 500 MG ORAL TABLET 632620 LEVOFLOXACIN Inactive PREDNISONE 20 MG ORAL TABLET 2 tabs daily for 4 days, 1 tab daily for 4 days, 1/2 tab daily for 4 days PREDNISONE 20 MG ORAL TABLET 552329 PREDNISONE Inactive LOVASTATIN 40 MG ORAL TABLET Take 1 tab po every hs LOVASTATIN 40 MG ORAL TABLET 505920 LOVASTATIN Inactive DILAUDID 2 MG ORAL TABLET Take 1/2 tab po every 4 hours as needed for pain DILAUDID 2 MG ORAL TABLET 781401 HYDROMORPHONE HCL Inactive AMITRIPTYLINE HCL 25 MG ORAL TABLET 1 q hs prn AMITRIPTYLINE HCL 25 MG ORAL TABLET 241365 AMITRIPTYLINE HCL Inactive MECLIZINE HCL 25 MG ORAL TABLET 1 tablet three times daily for 3 days, then 1/ 2 tab three times daily for 3 days. MECLIZINE HCL 25 MG ORAL TABLET 427002 MECLIZINE HCL Inactive AMLODIPINE BESYLATE 5 MG ORAL TABLET Take 1 tab po daily AMLODIPINE BESYLATE 5 MG ORAL TABLET 509501 AMLODIPINE BESYLATE Inactive TOPIRAMATE 25 MG ORAL TABLET 1 tab po BID TOPIRAMATE 25 MG ORAL TABLET 052523 TOPIRAMATE Inactive PREDNISONE 20 MG ORAL TABLET 1 tablet twice daily for 2 days, then 1 tablet once daily for 2 days PREDNISONE 20 MG ORAL TABLET 657833 PREDNISONE Inactive PREDNISONE 20 MG ORAL TABLET 1 tab twice daily for 3 day, then one daily for three days PREDNISONE 20 MG ORAL TABLET 498344 PREDNISONE Inactive NIFEDIPINE ER 30 MG ORAL TABLET EXTENDED RELEASE 24 HOUR 1 daily NIFEDIPINE ER 30 MG ORAL TABLET EXTENDED RELEASE 24 HOUR NIFEDIPINE Inactive AMLODIPINE BESYLATE 5 MG ORAL TABLET 1 tablet by mouth daily 2016 AMLODIPINE BESYLATE 5 MG ORAL TABLET 238632 AMLODIPINE BESYLATE Inactive LASIX 20 MG ORAL TABLET 1 tablet by mouth every morning LASIX 20 MG ORAL TABLET 773709 FUROSEMIDE Inactive POTASSIUM CHLORIDE ER 10 MEQ ORAL CAPSULE EXTENDED RELEASE 1 capsule BID 2016 POTASSIUM CHLORIDE ER 10 MEQ ORAL CAPSULE EXTENDED RELEASE POTASSIUM CHLORIDE Inactive POTASSIUM CHLORIDE 20 MEQ ORAL PACKET 1 tab po q day POTASSIUM CHLORIDE 20 MEQ ORAL PACKET 5591614 POTASSIUM CHLORIDE Inactive PREDNISONE 20 MG ORAL TABLET 2 tablets by mouth today, then 1 tablet by mouth days 2-3 PREDNISONE 20 MG ORAL TABLET 579932 PREDNISONE Inactive SPIRONOLACTONE 25 MG ORAL TABLET 1 tablet by mouth daily SPIRONOLACTONE 25 MG ORAL TABLET 935690 SPIRONOLACTONE Inactive AZITHROMYCIN 250 MG ORAL TABLET 2 po qd x 1 day, then 1 po qd x 4 days 04/06 AZITHROMYCIN 250 MG ORAL TABLET 778485 AZITHROMYCIN Inactive AZITHROMYCIN 250 MG ORAL TABLET 2 po qd x 1 day, then 1 po qd x 4 days 12/30 AZITHROMYCIN 250 MG ORAL TABLET 843072 AZITHROMYCIN Inactive PREDNISONE 20 MG ORAL TABLET 2 po qd x 5 days PREDNISONE 20 MG ORAL TABLET 412224 PREDNISONE Inactive Vital Signs Date Name Value [...] Panel - Chemistry sodium, serum 140 mmol/L 851-602 4899/07/13 potassium, serum 3.2 mmol/L 3.5-5.2 chloride, serum 103 mmol/L 98-107 carbon dioxide, venous blood 26.9 mmol/L 21.0-32.0 blood glucose 93 mg/dL 65-110 calcium, serum 9.2 mg/dL 8.5-10.1 urea nitrogen, blood 13 mg/dL 7- creatinine, serum 0.84 mg/dL 0.60-1.30 sodium, serum 140 mmol/L 635-583 9289/08/21 potassium, serum 3.8 mmol/L 3.5-5.2 chloride, serum [...] ... - Chemistry sodium, serum 141 mmol/L 345-880 7380/08/07 carbon dioxide, venous blood 34.0 mmol/L 21.0-32.0 [...] 1.40 mg/dL 0.00-1.00 cholesterol, serum 192 mg/dL 724-133 7900/10/19 triglyceride, serum, fasting 71 mg/dL 30-200 HDL cholesterol, serum 72 mg/dL 32-60 LDL cholesterol, serum 106 mg/dL 0-130 Lab Report: Rapid Strep - Lab Microbial identification kit, rapid strep method Negative Negative Lab Report: THEOPHYLLINE - Toxicology theophylline level, serum 3.1 ug/mL 10.0-20.0 Encounters Code Encounter Date Provider Facility CPT-23018 Level 3 Est. Patient 12:36:15 [facility] Harinder Cr [facility] CPT-16987 Level 3 Est. Patient 15:14:45 [facility] Har[facility] CPT-88710 Level 4 Est. Patient 14:45:25 CDT Harinder Cr [facility] CPT-15105 Level 4 Est. Patient 09:15:13 CDT Harinder Cr [facility] CPT-84872 Level 3 Est. Patient 11:51:58 CDT Harinder Cr [facility] CPT-68204 Level 3 Est. Patient 11:30:05 CDT Harinder Cr [facility] CPT-49784 Level 4 Est. Patient 10:19:23 CDT Harinder [facility] CPT-76297 Level 3 Est. Patient 09:58:58 CDT Harinder Cr [facility] CPT-19684 Level 3 Est. Patient 12:37:21 CDT Harinder [facility] CPT-07444 Level 3 Est. Patient 18:37:17 CDT Harinder [facility] CPT-82249 Level 4 Est. Patient 11:15:54 CDT Nettie Rohith [facility] CPT-49642 Level 3 Est. Patient 16:42:24 CDT [facility] CPT-51408 Level 3 Est. Patient 15:03:36 CDT Harinder Cr [facility] CPT-48336 Level 3 Est. Patient 15:03:20 CDT Harinder Shaye [facility] CPT-74255 Level 3 Est. Patient 12:14:34 CDT Harinder Sh[facility] CPT-92763 Level 3 Est. Patient 13:47:15 CDT [facility] CPT-50070 Level 3 Est. Patient 14:08:24 CDT Harinder Hernandez [facility] CPT-21781 Level 3 Est. Patient 10:07:15 CDT Harinder Hernandez [facility] CPT-90149 Level 3 Est. Patient 10:06:59 CDT Harinder Hernandez [facility] CPT-76370 Level 3 Est. Patient 15:53:29 CDT Jae Morgan MD [facility] CPT-41518 Level 3 Est. Patient 17:19:04 CDT Harinder Hernandez [facility] CPT-14600 Level 3 Est. Patient 11:13:01 CDT Harinder Hernandez [facility] CPT-26137 Level 3 Est. Patient 09:03:58 CDT Harinder Hernandez [facility] CPT-33948 Level 3 Est. Patient 14:46:45 [facility] Harinder Hernandez [facility] CPT-92355 Level 3 Est. Patient 09:35:49 [facility] Harinder Hernandez [facility] CPT-95765 Level 3 Est. Patient 09:29:37 [facility] Harinder Hernandez [facility] CPT-39522 Level 3 Est. Patient 15:51:07 CDT Harinder Hernandez [facility] CPT-03102 Level 3 Est. Patient 18:13:13 CDT Harinder Hernandez [facility] CPT-84131 Level 3 Est. Patient 10:44:19 CDT [facility] CPT-56183 Level 4 Est. Patient 10:07:19 [facility] Harinder Shaye [facility] CPT-35668 Level 3 Est. Patient 15:59:32 [facility] Procedures Code Procedure Name Date Entry Date Standard Description CPT-04718 Abd compl w upright - XRAY USE ONLY 14:48:09 CDT 02/18 CPT-04207 Port a cath flush 13:46:05 CDT CPT-31715 Hip, complete, 2-3 views - XRAY USE ONLY 10:28:40 CDT CPT-37267 BMP - LAB USE ONLY 16:45:09 [facility] CPT-13317 Port a cath flush 12:00:13 [facility] CPT-TCMM Transitional Care Mgmt-Moderate 11:20:16 [facility] CPT-92971 First Vx - Ix admin for Medicare patients 17:35:15 CDT CPT-86454 Fluzone Preservative Free Intramuscular Suspension 17:35 :15 CDT CPT-92945 Microalbumin - LAB USE ONLY 11:52:05 CDT CPT-TCMM Transitional Care Mgmt-Moderate 11:33:57 CDT CPT-97762 No Charge Offi Visit 14:11:29 CDT CPT-89860 Magnesium - LAB USE ONLY 10:45:44 CDT CPT-53991 Lipid - LAB USE ONLY 10:45:44 CDT CPT-96351 CBC - LAB USE ONLY 10:45:44 CDT CPT-57792 Venipuncture Draw Fee 10:45:43 CDT CPT-94138 Venipuncture Draw Fee 18:21:27 CDT CPT-JTINJ Asp/Joint Injection 18:38:04 CDT CPT-07592 Immunization Each Additional Inj 17:38:04 CDT CPT-70020 Immunization Single Admin 17:38:04 CDT CPT-71790 Prevnar 13 17:38:04 CDT CPT-64151 Fluzone Quadrivalent preservative free (>=3yrs.) 17:38: 04 CDT CPT-07563 No Charge Offi Visit 11:14:03 CDT CPT-08678 Chest 2V Frontal and Lat 14:00:18 CDT CPT-OV Office Visit 16:10:28 CDT CPT-JTINJ Asp/Joint Injection 09:03:57 CDT CPT-Cryo Cryotherapy 09:35:49 [facility] CPT-JTINJ Asp/Joint Injection 09:34:45 [facility] CPT-J2930 Solu Medrol 125 mg (Methyl Prednisolone Sodium Succinate) 20:37:27 CDT CPT-38932 Abx/Therapy Injection 20:37:27 CDT CPT-86686 Port a cath flush 08:15:51 CDT CPT-64140 Port a cath flush 09:54:16 CDT CPT-38355 Port a cath flush 09:38:02 CDT CPT-54616 Port a cath flush 11:00:27 [facility]
--- OUTSIDE RECORDS SUMMARY | 2017-12-29 02:29 | XMS REPORT | Clinical Summary ---
Author Author Admin, KAIN Organization [facility] Address Unknown Phone Unavailable Allergies, Adverse [...] Colon cancer screening V76.51 Active [facility] DIRECTOR [facility] NURSING Screening for malignant neoplasms of colon Screening for malignant neoplasm, colon V76.51 Active [facility] DIRECTOR [facility] NURSING Screening for malignant neoplasms of colon Nausea and vomiting ICD-787.01 Inactive Jae Morgan MD Diarrhea ICD-787.91 Inactive Jae Morgan MD Medication List Medication Instructions Start Date Stop Date Generic Name NDC Status Provider Patient Instruction CEFDINIR 300 MG ORAL CAPS take 1 cap po bid x 10 days CEFDINIR 75732886532 Active Tawnya Pardo MA Active AMITRIPTYLINE HCL 25 MG ORAL TABS 1 q hs prn AMITRIPTYLINE HCL 92757532575 Active Nettie Newberry APRN Active LOVASTATIN 40 MG TABS 1 pill by mouth nightly for cholesterol LOVASTATIN 30415638178 No Longer Active Nettie Newberry APRN Active NITROSTAT 0.4 MG SUBL 1 tab under tongueas needed for chest pain ( may take 3 total, 5 min apart, then call 911) NITROGLYCERIN 22442670833 No Longer Active Nettie Newberry APRN Active POTASSIUM CHLORIDE CR 10 MEQ CPCR 1 capsule by mouth daily 02/14 POTASSIUM CHLORIDE 49613788516 No Longer Active Nettie Rohith MAHENDRA Active TESSALON PERLES 100 MG CAP 1 to 2 tablets by mouth 3 times daily as needed for cough BENZONATATE 42530923426 No Longer Active Nettie Newberry APRN Active THEOPHYLLINE ER 200 MG ORAL [id number] Take 1 tab every 12 hours THEOPHYLLINE 13472319012 Active Trixie Martin LPN Active PREDNISONE 20 MG TAB 2 po qd x 5 days PREDNISONE 51431036013 No Longer Active Jae Morgan MD Active AZITHROMYCIN 250 MG TABS 2 po qd x 1 day, then 1 po qd x 4 days AZITHROMYCIN 39780392922 No Longer Active Jae Morgan MD Active PREDNISONE 20 MG TAB 1 tab twice daily for 3 day, then one daily for three days PREDNISONE 61574900282 No Longer Active Jae Morgan MD Active MECLIZINE HCL 25 MG TAB 1 tablet three times daily for 3 days, then 1/2 tab three times daily for 3 days. MECLIZINE HCL 85277242170 Active Harinder Hernandez DO Active SINGULAIR 10 MG TABS 1 pill by mouth every evening for breathing. MONTELUKAST SODIUM 93537595222 Active Harinder Hernandez DO Active TYLENOL 325 MG TAB 3 by mouth q4h as needed ACETAMINOPHEN 13479435737 Active Harinder Hernandez DO Active POTASSIUM CHLORIDE ER 10 MEQ CR-TABS take 1 tab po daily POTASSIUM CHLORIDE 11455045342 No Longer Active Harinder Hernandez DO Active PREDNISONE 20 MG TAB 1 TID x 2 days, then 1 BID x 3 days, then 1 Daily x 3 days, then stop PREDNISONE 46940654783 No Longer Active Jillina Frazell DIRECTOR [facility]URSING Active LEVAQUIN 500 MG TAB 1 tablet by mouth daily LEVOFLOXACIN 01530040782 No Longer Active Jillina Frazell DIRECTOR [facility]URSING Active NEURONTIN 300 MG CAP 1 cap by mouth three times daily for restless leg 06/22 GABAPENTIN 36339965822 No Longer Active Harinder Hernandez DO Active BENZONATATE 100 MG CAPS 1 cap po TID PRN BENZONATATE 98234193845 No Longer Active Harinder Hernandez DO Active MONTELUKAST SODIUM 10 MG TABS 1 tab po in the evening MONTELUKAST SODIUM 47763917909 No Longer Active Harinder Hernandez DO Active MUPIROCIN 2 % OINT apply to affected area BID x 14 days MUPIROCIN 20318237160 No Longer Active Harinder Hernandez DO Active TYLENOL EXTRA STRENGTH 500 MG TABS as needed ACETAMINOPHEN 05100444872 No Longer Active Harinder Hernandez DO Active PREDNISONE 10 MG TABS 1 tab po daily PREDNISONE 97228601319 No Longer Active Harinder Hernandez DO Active PREDNISONE 20 MG TAB 2 tabs daily for 4 days, 1 tab daily for 4 days, 1/2 tab daily for 4 days PREDNISONE 51664943275 No Longer Active Harinder Hernandez DO Active AZITHROMYCIN 250 MG TABS 2 po qd x 1 day, then 1 po qd x 4 days AZITHROMYCIN 51164308771 No Longer Active Harinder Hernandez DO Active PREDNISONE 20 MG TAB 3 tabs today, then 1 tab twice daily for 3 day, then one daily for three days PREDNISONE 90764241666 No Longer Active Harinder Hernandez DO Active NIFEDIAC CC 30 MG [id number] 1 tablet daily for raynaud's syndrome NIFEDIPINE 47236441679 Active Lobito Smith MD Active AMBIEN 10 MG TAB 1/2 tab by mouth at bedtime as needed for sleep ZOLPIDEM TARTRATE 74533803877 Active Johny Dawkins MD Active VENTOLIN HFA 108 (90 BASE) MCG/ACT AERS 2 -4 puffs four times a day PRN 2013 ALBUTEROL SULFATE 46165052546 Active Lobito Smith MD Active CLONAZEPAM 1 MG TABS 1 tablet at bedtime for insomnia and restless legs 09/14 CLONAZEPAM 51298908486 Active Harinder Hernandez DO Active CLONAZEPAM 0.5 MG TABS 1 tab po daily CLONAZEPAM 79858974554 No Longer Active Harinder Hernandez DO Active PREDNISONE 10 MG TAB 1 tablet daily for COPD PREDNISONE 19808485264 Active Harinder Hernandez DO Active PROAIR HFA 108 (90 BASE) MCG/ACT AERS 2 puffs four times a day as needed 2012 ALBUTEROL SULFATE 92869820024 Active Harinder Hernandez DO Active FLOVENT HFA 110 MCG/ACT AERO 2 puffs inhaled b.i.d. FLUTICASONE PROPIONATE HFA 28802125698 Active Harinder Hernandez DO Active EPIPEN 0.3 MG/0.3ML URIEL DIRECTED EPINEPHRINE Active Demetrius JOHNSON Active ACIPHEX 20 MG TBEC 1 tab po daily RABEPRAZOLE SODIUM 82707540498 Active Harinder Hernandez DO Active TOPIRAMATE 25 MG TABS 1 tab po BID TOPIRAMATE 33346360742 Active Lobito Smith MD Active ACEBUTOLOL HCL 200 MG CAPS 1 cap in the morning and 2 caps in the evening ACEBUTOLOL HCL 64133282642 Active Harinder Hernandez Active CLONAZEPAM 0.5 MG TABS 1 tab po daily CLONAZEPAM 0.5 MG TABS 169384 CLONAZEPAM Inactive PREDNISONE 20 MG TAB 3 tabs today, then 1 tab twice daily for 3 day, then one daily for three days PREDNISONE 20 MG TAB 936665 PREDNISONE Inactive PREDNISONE 20 MG TAB 2 tabs daily for 4 days, 1 tab daily for 4 days, 1/2 tab daily for 4 days PREDNISONE 20 MG TAB 731804 PREDNISONE Inactive PREDNISONE 10 MG TABS 1 tab po daily PREDNISONE 10 MG TABS 393862 PREDNISONE Inactive TYLENOL EXTRA STRENGTH 500 MG TABS as needed TYLENOL EXTRA STRENGTH 500 MG TABS 319394 ACETAMINOPHEN Inactive MUPIROCIN 2 % OINT apply to affected area BID x 14 days MUPIROCIN 2 % OINT 808897 MUPIROCIN Inactive MONTELUKAST SODIUM 10 MG TABS 1 tab po in the evening MONTELUKAST SODIUM 10 MG TABS 222843 MONTELUKAST SODIUM Inactive BENZONATATE 100 MG CAPS 1 cap po TID PRN BENZONATATE 100 MG CAPS 981684 BENZONATATE Inactive NEURONTIN 300 MG CAP 1 cap by mouth three times daily for restless leg 06/22 NEURONTIN 300 MG CAP 381425 GABAPENTIN Inactive LEVAQUIN 500 MG TAB 1 tablet by mouth daily LEVAQUIN 500 MG TAB 652842 LEVOFLOXACIN Inactive PREDNISONE 20 MG TAB 1 TID x 2 days, then 1 BID x 3 days, then 1 Daily x 3 days, then stop PREDNISONE 20 MG TAB 137601 PREDNISONE Inactive POTASSIUM CHLORIDE ER 10 MEQ CR-TABS take 1 tab po daily POTASSIUM CHLORIDE ER 10 MEQ CR-TABS POTASSIUM CHLORIDE Inactive PREDNISONE 20 MG TAB 1 tab twice daily for 3 day, then one daily for three days PREDNISONE 20 MG TAB 819717 PREDNISONE Inactive TESSALON PERLES 100 MG CAP 1 to 2 tablets by mouth 3 times daily as needed for cough TESSALON PERLES 100 MG CAP 106397 BENZONATATE Inactive POTASSIUM CHLORIDE CR 10 MEQ [...] nightly for cholesterol LOVASTATIN 40 MG TABS 193811 LOVASTATIN Inactive AZITHROMYCIN 250 MG TABS 2 po qd x 1 day, then 1 po qd x 4 days AZITHROMYCIN 250 MG TABS 1647454 AZITHROMYCIN Inactive AZITHROMYCIN 250 MG TABS 2 po qd x 1 day, then 1 po qd x 4 days AZITHROMYCIN 250 MG TABS 8958508 AZITHROMYCIN Inactive PREDNISONE 20 MG TAB 2 po qd x 5 days PREDNISONE 20 MG TAB 649251 PREDNISONE Inactive Vital Signs Date Name Value [...] AUTO - Chemistry sodium, serum 141 mmol/L 510-356 4714/03/02 potassium, serum 3.4 mmol/L 3.5-5.2 chloride, serum [...] ... - Chemistry sodium, serum 139 mmol/L 903-263 3742/11/24 potassium, serum 4.0 mmol/L 3.5-5.2 chloride, serum [...] 1.93 m[iU]/mL 0.36-3.74 cholesterol, serum 248 mg/dL 717-364 4093/11/24 triglyceride, serum, fasting 104 mg/dL 30-200 HDL [...] 10.0-20.0 Encounters Code Encounter Date Provider Facility CPT-[id number] Level 3 Est. Patient 10:07:15 CDT Harinder Hernandez [facility] CPT-69156 Level 3 Est. Patient 10:06:59 CDT Harinder Cr [facility] CPT-70395 Level 3 Est. Patient 15:53:29 CDT Jae Morgan MD [facility] CPT-22381 Level 3 Est. Patient 17:19:04 CDT Harinder Hernandez [facility] CPT-25113 Level 3 Est. Patient 11:13:01 CDT Harinder Hernandez [facility] CPT-84973 Level 3 Est. Patient 09:03:58 CDT Harinder Hernandez [facility] CPT-85248 Level 3 Est. Patient 14:46:45 DISTRICT SALES REPRESENTATIVE Harinder Hernandez [facility] CPT-69139 Level 3 Est. Patient 09:35:49 DISTRICT SALES REPRESENTATIVE Harinder Hernandez [facility] CPT-13618 Level 3 Est. Patient 09:29:37 DISTRICT SALES REPRESENTATIVE Harinder Hernandez [facility] CPT-48524 Level 3 Est. Patient 15:51:07 CDT Harinder Hernandez [facility] CPT-73947 Level 3 Est. Patient 18:13:13 CDT Harinder Hernandez [facility] CPT-63330 Level 3 Est. Patient 10:44:19 CDT aHrinder Hernandez [facility] CPT-75133 Level 4 Est. Patient 10:07:19 DISTRICT SALES REPRESENTATIVE Harinder Hernandez [facility] CPT-18577 Level 3 Est. Patient 15:59:32 DISTRICT SALES REPRESENTATIVE Harinder Cr [facility] Procedures Code Procedure Name Date Entry Date Standard Description CPT-OV Office Visit 16:10:28 CDT CPT-JTINJ Asp/Joint Injection 09:03:57 CDT CPT-Cryo Cryotherapy 09:35:49 DISTRICT SALES REPRESENTATIVE CPT-JTINJ Asp/Joint Injection 09:34:45 DISTRICT SALES REPRESENTATIVE CPT-J2930 Solu Medrol 125 mg (Methyl Prednisolone Sodium Succinate) 20:37:27 CDT CPT-69991 Abx/Therapy Injection 20:37:27 CDT CPT-41993 Port a cath flush 08:15:51 CDT CPT-33623 Port a cath flush 09:54:16 CDT CPT-94607 Port a cath flush 09:38:02 CDT CPT-35123 Port a cath flush 11:00:27 DISTRICT SALES REPRESENTATIVE
--- OUTSIDE RECORDS SUMMARY | 2017-12-29 02:31 | XMS REPORT | Clinical Summary ---
Author Author Admin, QIE Organization [facility] Address Unknown Phone Unavailable Allergies, Adverse Reactions, [...] TABLET 1 tablet by mouth daily SPIRONOLACTONE [id number] No Longer Active Jeri Nieto Active PREDNISONE 20 MG ORAL TABLET 2 tablets by mouth today, then 1 tablet by mouth days 2-3 PREDNISONE 98923488628 No Longer Active Jeri Nieto Active NITROSTAT 0.4 MG SUBLINGUAL TABLET SUBLINGUAL 1 tab SL q5min PRN chest pain NITROGLYCERIN 07391057728 Active Meenu Alejo LPN Active THEOPHYLLINE ER 300 MG ORAL TABLET EXTENDED RELEASE 12 HOUR 1 po BID THEOPHYLLINE 49267863196 Active Kortney Mccain Active POTASSIUM CHLORIDE ER 20 MEQ ORAL TABLET EXTENDED RELEASE 1 po q day POTASSIUM CHLORIDE 59855474380 Active Kortney Mccain Active POTASSIUM CHLORIDE 20 MEQ ORAL PACKET 1 tab po q day POTASSIUM CHLORIDE 66129134209 No Longer Active Kortney Mccain Active POTASSIUM CHLORIDE ER 10 MEQ ORAL CAPSULE EXTENDED RELEASE 1 capsule BID 2016 POTASSIUM CHLORIDE 34458673933 No Longer Active Kortney Mccain Active LASIX 20 MG ORAL TABLET 1 tablet by mouth every morning FUROSEMIDE 45832556240 No Longer Active Kortney Mccain Active FLUOXETINE HCL 10 MG ORAL CAPSULE 1 po qd for depression/anxiety FLUOXETINE HCL 83996525458 Active Harinder Hernandez DO Active VOLTAREN 1 % TRANSDERMAL GEL apply q 6-8 hour to left arm as needed for pain DICLOFENAC SODIUM 96586989181 Active Kortney Mccain Active ALBUTEROL SULFATE (2.5 MG/3ML) 0.083% INHALATION NEBULIZATION SOLUTION 1 vial neb q 4hrs for severe asthma. 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 NIFEDIPINE 31843279168 Active Kortney Mccain Active AMLODIPINE BESYLATE 5 MG ORAL TABLET 1 tablet by mouth daily 2016 AMLODIPINE BESYLATE 35466860189 No Longer Active Harinder Hernandez DO Active TOPAMAX 25 MG ORAL TABLET 1 tab po BID TOPIRAMATE 52413615901 Active Kortney Mccain Active FLUTICASONE PROPIONATE 50 MCG/ACT NASAL SUSPENSION 2 sprays per nostril daily PRN Allergies FLUTICASONE PROPIONATE 66053578198 Active Meenu Alejo LPN Active NIFEDIPINE ER 30 MG ORAL TABLET EXTENDED RELEASE 24 HOUR 1 daily NIFEDIPINE 62240709319 No Longer Active Harinder Hernandez DO Active FLOVENT HFA 110 MCG/ACT INHALATION AEROSOL 2 puffs inhaled b.i.d. FLUTICASONE PROPIONATE HFA 04621546619 Active Harinder Hernandez DO Active EPIPEN 2-BRUNA 0.3 MG/0.3ML INJECTION SOLUTION AUTO-INJECTOR 1 INJ NEEDED EPINEPHRINE 35319795572 Active Kortney Mccain Active PREDNISONE 20 MG ORAL TABLET 1 tab twice daily for 3 day, then one daily for three days PREDNISONE 71839763804 No Longer Active Harinder Hernandez DO Active PREDNISONE 20 MG ORAL TABLET 1 tablet twice daily for 2 days, then 1 tablet once daily for 2 days PREDNISONE 36731184232 No Longer Active Harinder Hernandez DO Active ASMANEX 120 METERED DOSES 220 MCG/INH INHALATION AEROSOL POWDER BREATH ACTIVATED 2 puffs orally twice daily MOMETASONE FUROATE 75754039520 Active Jeri Sosa LPN Active TOPIRAMATE 25 MG ORAL TABLET 1 tab po BID TOPIRAMATE 03744112523 No Longer Active Nettie King MAHENDRA Active AMLODIPINE BESYLATE 5 MG ORAL TABLET Take 1 tab po daily AMLODIPINE BESYLATE 80243684691 No Longer Active Nettie Newberry MAHENDRA Active MECLIZINE HCL 25 MG ORAL TABLET 1 tablet three times daily for 3 days, then 1/ 2 tab three times daily for 3 days. MECLIZINE HCL 19144004329 No Longer Active Nettieog Newberry APRN Active AMITRIPTYLINE HCL 25 MG ORAL TABLET 1 q hs prn AMITRIPTYLINE HCL 70479580217 No Longer Active Nettie Newberry MAHENDRA Active DILAUDID 2 MG ORAL TABLET Take 1/2 tab po every 4 hours as needed for pain HYDROMORPHONE HCL 05291247239 No Longer Active Nettieog Newberry APRN Active CLOPIDOGREL BISULFATE 75 MG ORAL TABLET 1 tab by mouth once daily CLOPIDOGREL BISULFATE 96448943799 Active Meenu Alejo LPN Active ATORVASTATIN CALCIUM 10 MG ORAL TABLET 1 at bedtime ATORVASTATIN CALCIUM 23079496316 Active Kortney Mccain Active LOVASTATIN 40 MG ORAL TABLET Take 1 tab po every hs LOVASTATIN 27948580059 No Longer Active Harinder Hernandez DO Active PREDNISONE 20 MG ORAL TABLET 2 tabs daily for 4 days, 1 tab daily for 4 days, 1/2 tab daily for 4 days PREDNISONE 28808336398 No Longer Active Harinder Hernandez DO Active LEVAQUIN 500 MG ORAL TABLET Take 1 tab po daily x 8 days LEVOFLOXACIN 53308921761 No Longer Active Harinder Hernandez DO Active VENTOLIN HFA 108 (90 Base) MCG/ACT INHALATION AEROSOL SOLUTION 2 -4 puffs four times a day PRN ALBUTEROL SULFATE 29533437358 No Longer Active Jeri Sosa LPN Active ACEBUTOLOL HCL 200 MG ORAL CAPSULE 1 cap in the morning and 2 caps in the evening ACEBUTOLOL HCL 20716078471 No Longer Active Harinder Hernandez DO Active CEFDINIR 300 MG ORAL CAPSULE take 1 cap po bid x 10 days CEFDINIR 60291442234 No Longer Active Harinder Hernandez DO Active LOVASTATIN 40 MG ORAL TABLET 1 pill by mouth nightly for cholesterol LOVASTATIN 67694236982 No Longer Active Nettie Newberry APRN Active NITROSTAT 0.4 MG SUBLINGUAL TABLET SUBLINGUAL 1 tab under tongueas needed for chest pain ( may take 3 total, 5 min apart, then call 911) NITROGLYCERIN 54062599140 No Longer Active Nettie Newberry APRN Active POTASSIUM CHLORIDE ER 10 MEQ ORAL CAPSULE EXTENDED RELEASE 1 capsule by mouth daily POTASSIUM CHLORIDE 75620745277 No Longer Active Nettie Newberry APRN Active TESSALON PERLES 100 MG ORAL CAPSULE 1 to 2 tablets by mouth 3 times daily as needed for cough BENZONATATE 33791593106 No Longer Active Nettie Newberry APRN Active PREDNISONE 20 MG ORAL TABLET 2 po qd x 5 days PREDNISONE 72567086862 No Longer Active Jae Morgan MD Active AZITHROMYCIN 250 MG ORAL TABLET 2 po qd x 1 day, then 1 po qd x 4 days 12/30 AZITHROMYCIN 92697473486 No Longer Active Jae Morgan MD Active PREDNISONE 20 MG ORAL TABLET 1 tab twice daily for 3 day, then one daily for three days PREDNISONE 94824647789 No Longer Active Jae Morgan MD Active SINGULAIR 10 MG ORAL TABLET 1 pill by mouth every evening for breathing. 2014 MONTELUKAST SODIUM 12475123688 Active Meenu Alejo LPN Active TYLENOL 325 MG ORAL TABLET 3 by mouth q4h as needed ACETAMINOPHEN 06558031659 Active Harinder Hernandez DO Active POTASSIUM CHLORIDE ER 10 MEQ ORAL TABLET EXTENDED RELEASE take 1 tab po daily POTASSIUM CHLORIDE 11090640495 No Longer Active Harinder Hernandez DO Active PREDNISONE 20 MG ORAL TABLET 1 TID x 2 days, then 1 BID x 3 days, then 1 Daily x 3 days, then stop PREDNISONE 49797577747 No Longer Active John Montemayor APRN Active LEVAQUIN 500 MG ORAL TABLET 1 tablet by mouth daily LEVOFLOXACIN 60109202318 No Longer Active Jillkvng Montemayor APRN Active NEURONTIN 300 MG ORAL CAPSULE 1 cap by mouth three times daily for restless leg GABAPENTIN 81238717962 No Longer Active Harinder Hernandez DO Active BENZONATATE 100 MG ORAL CAPSULE 1 cap po TID PRN BENZONATATE 63653492864 No Longer Active Harinder Hernandez DO Active MONTELUKAST SODIUM 10 MG ORAL TABLET 1 tab po in the evening 2014 MONTELUKAST SODIUM 47761695111 No Longer Active Harinder Hernandez DO Active MUPIROCIN 2 % EXTERNAL OINTMENT apply to affected area BID x 14 days MUPIROCIN 76809730419 No Longer Active Harinder Hernandez DO Active TYLENOL EXTRA STRENGTH 500 MG ORAL TABLET as needed ACETAMINOPHEN 39719944511 No Longer Active Harinder Hernandez DO Active PREDNISONE 10 MG ORAL TABLET 1 tab po daily PREDNISONE 71505717146 No Longer Active Harinder Hernandez DO Active PREDNISONE 20 MG ORAL TABLET 2 tabs daily for 4 days, 1 tab daily for 4 days, 1/2 tab daily for 4 days PREDNISONE 44983752239 No Longer Active Harinder Hernandez DO Active AZITHROMYCIN 250 MG ORAL TABLET 2 po qd x 1 day, then 1 po qd x 4 days 04/06 AZITHROMYCIN 73592828735 No Longer Active Harinder Hernandez DO Active PREDNISONE 20 MG ORAL TABLET 3 tabs today, then 1 tab twice daily for 3 day, then one daily for three days PREDNISONE 53571214674 No Longer Active Harinder Hernandez DO Active NIFEDIAC CC 30 MG ORAL TABLET EXTENDED RELEASE 24 HOUR 1 tablet daily for raynaud's syndrome NIFEDIPINE 95777450785 No Longer Active Tawnya Pardo MA Active AMBIEN 10 MG ORAL TABLET 1/2 tab by mouth at bedtime as needed for sleep 2013 ZOLPIDEM TARTRATE 44945274590 Active Meenu Alejo GUSTAVO Active CLONAZEPAM 1 MG ORAL TABLET 1 tablet at bedtime for insomnia and restless legs CLONAZEPAM 65431922757 Active Harinder Hernandez DO Active CLONAZEPAM 0.5 MG ORAL TABLET 1 tab po daily CLONAZEPAM 83160118631 No Longer Active Harinder Hernandez DO Active PREDNISONE 10 MG ORAL TABLET 1 tablet daily for COPD PREDNISONE 26094972844 Active Kortney Mccain Active PROAIR HFA 108 (90 Base) MCG/ACT INHALATION AEROSOL SOLUTION 2 puffs four times a day as needed ALBUTEROL SULFATE 14817564183 Active Harinder Hernandez DO Active FLOVENT HFA 110 MCG/ACT INHALATION AEROSOL 2 puffs inhaled b.i.d. FLUTICASONE PROPIONATE HFA 39226081028 Active Kortney Mccain Active ACIPHEX 20 MG ORAL TABLET DELAYED RELEASE 1 tab po daily RABEPRAZOLE SODIUM 88627202200 Active Kaylah Newberry Active CLONAZEPAM 0.5 MG ORAL TABLET 1 tab po daily CLONAZEPAM 0.5 MG ORAL TABLET 150457 CLONAZEPAM Inactive PREDNISONE 20 MG ORAL TABLET 3 tabs today, then 1 tab twice daily for 3 day, then one daily for three days PREDNISONE 20 MG ORAL TABLET 503214 PREDNISONE Inactive PREDNISONE 20 MG ORAL TABLET 2 tabs daily for 4 days, 1 tab daily for 4 days, 1/2 tab daily for 4 days PREDNISONE 20 MG ORAL TABLET 882489 PREDNISONE Inactive PREDNISONE 10 MG ORAL TABLET 1 tab po daily PREDNISONE 10 MG ORAL TABLET 710945 PREDNISONE Inactive TYLENOL EXTRA STRENGTH 500 MG ORAL TABLET as needed TYLENOL EXTRA STRENGTH 500 MG ORAL TABLET 842579 ACETAMINOPHEN Inactive MUPIROCIN 2 % EXTERNAL OINTMENT apply to affected area BID x 14 days MUPIROCIN 2 % EXTERNAL OINTMENT 820960 MUPIROCIN Inactive MONTELUKAST SODIUM 10 MG ORAL TABLET 1 tab po in the evening 2014 MONTELUKAST SODIUM 10 MG ORAL TABLET 250321 MONTELUKAST SODIUM Inactive BENZONATATE 100 MG ORAL CAPSULE 1 cap po TID PRN BENZONATATE 100 MG ORAL CAPSULE 274423 BENZONATATE Inactive NEURONTIN 300 MG ORAL CAPSULE 1 cap by mouth three times daily for restless leg NEURONTIN 300 MG ORAL CAPSULE 614952 GABAPENTIN Inactive LEVAQUIN 500 MG ORAL TABLET 1 tablet by mouth daily LEVAQUIN 500 MG ORAL TABLET 921540 LEVOFLOXACIN Inactive PREDNISONE 20 MG ORAL TABLET 1 TID x 2 days, then 1 BID x 3 days, then 1 Daily x 3 days, then stop PREDNISONE 20 MG ORAL TABLET 303159 PREDNISONE Inactive POTASSIUM CHLORIDE ER 10 MEQ ORAL TABLET EXTENDED RELEASE take 1 tab po daily POTASSIUM CHLORIDE ER 10 MEQ ORAL TABLET EXTENDED RELEASE POTASSIUM CHLORIDE Inactive PREDNISONE 20 MG ORAL TABLET 1 tab twice daily for 3 day, then one daily for three days PREDNISONE 20 MG ORAL TABLET 067119 PREDNISONE Inactive TESSALON PERLES 100 MG ORAL CAPSULE 1 to 2 tablets by mouth 3 times daily as needed for cough TESSALON PERLES 100 MG ORAL CAPSULE 291352 BENZONATATE Inactive POTASSIUM CHLORIDE ER 10 MEQ ORAL CAPSULE EXTENDED RELEASE 1 capsule by mouth daily POTASSIUM CHLORIDE ER 10 MEQ ORAL CAPSULE EXTENDED RELEASE POTASSIUM CHLORIDE Inactive NITROSTAT 0.4 MG SUBLINGUAL TABLET SUBLINGUAL 1 tab under tongueas needed for chest pain ( may take 3 total, 5 min apart, then call 911) NITROSTAT 0.4 MG SUBLINGUAL TABLET SUBLINGUAL 198850 NITROGLYCERIN Inactive LOVASTATIN 40 MG ORAL TABLET 1 pill by mouth nightly for cholesterol LOVASTATIN 40 MG ORAL TABLET 472239 LOVASTATIN Inactive CEFDINIR 300 MG ORAL CAPSULE take 1 cap po bid x 10 days CEFDINIR 300 MG ORAL CAPSULE 581867 CEFDINIR Inactive ACEBUTOLOL HCL 200 MG ORAL CAPSULE 1 cap in the morning and 2 caps in the evening ACEBUTOLOL HCL 200 MG ORAL CAPSULE 591329 ACEBUTOLOL HCL Inactive VENTOLIN HFA 108 (90 Base) MCG/ACT INHALATION AEROSOL SOLUTION 2 -4 puffs four times a day PRN VENTOLIN HFA 108 (90 Base) MCG/ ACT INHALATION AEROSOL SOLUTION ALBUTEROL SULFATE Inactive LEVAQUIN 500 MG ORAL TABLET Take 1 tab po daily x 8 days LEVAQUIN 500 MG ORAL TABLET 001488 LEVOFLOXACIN Inactive PREDNISONE 20 MG ORAL TABLET 2 tabs daily for 4 days, 1 tab daily for 4 days, 1/2 tab daily for 4 days PREDNISONE 20 MG ORAL TABLET 853053 PREDNISONE Inactive LOVASTATIN 40 MG ORAL TABLET Take 1 tab po every hs LOVASTATIN 40 MG ORAL TABLET 061242 LOVASTATIN Inactive DILAUDID 2 MG ORAL TABLET Take 1/2 tab po every 4 hours as needed for pain DILAUDID 2 MG ORAL TABLET 681716 HYDROMORPHONE HCL Inactive AMITRIPTYLINE HCL 25 MG ORAL TABLET 1 q hs prn AMITRIPTYLINE HCL 25 MG ORAL TABLET 478865 AMITRIPTYLINE HCL Inactive MECLIZINE HCL 25 MG ORAL TABLET 1 tablet three times daily for 3 days, then 1/ 2 tab three times daily for 3 days. MECLIZINE HCL 25 MG ORAL TABLET 019467 MECLIZINE HCL Inactive AMLODIPINE BESYLATE 5 MG ORAL TABLET Take 1 tab po daily AMLODIPINE BESYLATE 5 MG ORAL TABLET 342901 AMLODIPINE BESYLATE Inactive TOPIRAMATE 25 MG ORAL TABLET 1 tab po BID TOPIRAMATE 25 MG ORAL TABLET 929247 TOPIRAMATE Inactive PREDNISONE 20 MG ORAL TABLET 1 tablet twice daily for 2 days, then 1 tablet once daily for 2 days PREDNISONE 20 MG ORAL TABLET 215631 PREDNISONE Inactive PREDNISONE 20 MG ORAL TABLET 1 tab twice daily for 3 day, then one daily for three days PREDNISONE 20 MG ORAL TABLET 254573 PREDNISONE Inactive NIFEDIPINE ER 30 MG ORAL TABLET EXTENDED RELEASE 24 HOUR 1 daily NIFEDIPINE ER 30 MG ORAL TABLET EXTENDED RELEASE 24 HOUR NIFEDIPINE Inactive AMLODIPINE BESYLATE 5 MG ORAL TABLET 1 tablet by mouth daily 2016 AMLODIPINE BESYLATE 5 MG ORAL TABLET 934144 AMLODIPINE BESYLATE Inactive LASIX 20 MG ORAL TABLET 1 tablet by mouth every morning LASIX 20 MG ORAL TABLET 375096 FUROSEMIDE Inactive POTASSIUM CHLORIDE ER 10 MEQ ORAL CAPSULE EXTENDED RELEASE 1 capsule BID 2016 POTASSIUM CHLORIDE ER 10 MEQ ORAL CAPSULE EXTENDED RELEASE POTASSIUM CHLORIDE Inactive POTASSIUM CHLORIDE 20 MEQ ORAL PACKET 1 tab po q day POTASSIUM CHLORIDE 20 MEQ ORAL PACKET 8876166 POTASSIUM CHLORIDE Inactive PREDNISONE 20 MG ORAL TABLET 2 tablets by mouth today, then 1 tablet by mouth days 2-3 PREDNISONE 20 MG ORAL TABLET 854778 PREDNISONE Inactive SPIRONOLACTONE 25 MG ORAL TABLET 1 tablet by mouth daily SPIRONOLACTONE 25 MG ORAL TABLET 448502 SPIRONOLACTONE Inactive AZITHROMYCIN 250 MG ORAL TABLET 2 po qd x 1 day, then 1 po qd x 4 days 04/06 AZITHROMYCIN 250 MG ORAL TABLET 984921 AZITHROMYCIN Inactive AZITHROMYCIN 250 MG ORAL TABLET 2 po qd x 1 day, then 1 po qd x 4 days 12/30 AZITHROMYCIN 250 MG ORAL TABLET 057504 AZITHROMYCIN Inactive PREDNISONE 20 MG ORAL TABLET 2 po qd x 5 days PREDNISONE 20 MG ORAL TABLET 085231 PREDNISONE Inactive Vital Signs Date Name Value [...] Panel - Chemistry sodium, serum 140 mmol/L 516-132 2403/07/13 potassium, serum 3.2 mmol/L 3.5-5.2 chloride, serum 103 mmol/L 98-107 carbon dioxide, venous blood 26.9 mmol/L 21.0-32.0 blood glucose 93 mg/dL 65-110 calcium, serum 9.2 mg/dL 8.5-10.1 urea nitrogen, blood 13 mg/dL 7-18 creatinine, serum 0.84 mg/dL 0.60-1.30 sodium, serum 140 mmol/L 747-047 0353/08/21 potassium, serum 3.8 mmol/L 3.5-5.2 chloride, serum [...] ... - Chemistry sodium, serum 141 mmol/L 642-896 2935/08/07 carbon dioxide, venous blood 34.0 mmol/L 21.0-32.0 [...] 1.40 mg/dL 0.00-1.00 cholesterol, serum 192 mg/dL 249-530 6160/10/19 triglyceride, serum, fasting 71 mg/dL 30-200 HDL cholesterol, serum 72 mg/dL 32-60 LDL cholesterol, serum 106 mg/dL 0-130 Lab Report: Rapid Strep - Lab Microbial identification kit, rapid strep method Negative Negative Lab Report: THEOPHYLLINE - Toxicology theophylline level, serum 3.1 ug/mL 10.0-20.0 Encounters Code Encounter Date Provider Facility CPT-26990 Level 3 Est. Patient 12:36:15 PHYSICIAN SCRIBE [facility] CPT-60013 Level 3 Est. Patient 15:14:45 PHYSICIAN SCRIBE [facility] CPT-03840 Level 4 Est. Patient 14:45:25 CDT [facility] CPT-33720 Level 4 Est. Patient 09:15:[address] [facility] CPT-15041 Level 3 Est. Patient 11:51:[address] [facility] CPT-06905 Level 3 Est. Patient 11:30:[address] [facility] CPT-50320 Level 4 Est. Patient 10:19:[address] [facility] CPT-23915 Level 3 Est. Patient 09:58:[address] [facility] CPT-41656 Level 3 Est. Patient 12:37:[address] [facility] CPT-59776 Level 3 Est. Patient 18:37:[address] [facility] CPT-35091 Level 4 Est. Patient 11:15:[address] [facility] CPT-25918 Level 3 Est. Patient 16:42:[address] [facility] CPT-46588 Level 3 Est. Patient 15:03:[address] [facility] CPT-99877 Level 3 Est. Patient 15:03:[address] [facility] CPT-25992 Level 3 Est. Patient 12:14:34 CDT Harinder Cr [facility] CPT-07636 Level 3 Est. Patient 13:47:15 CDT Harinder Shaye [facility] CPT-13485 Level 3 Est. Patient 14:08:24 CDT Hairnder W David [facility] CPT-74328 Level 3 Est. Patient 10:07:15 CDT Harinder Hrenandez [facility] CPT-83476 Level 3 Est. Patient 10:06:59 CDT Harinder Hernandez [facility] CPT-66341 Level 3 Est. Patient 15:53:29 CDT Jae Morgan MD [facility] CPT-48233 Level 3 Est. Patient 17:19:04 CDT Harinder Hernandez [facility] CPT-93739 Level 3 Est. Patient 11:13:01 CDT Harinder Hernandez [facility] CPT-76137 Level 3 Est. Patient 09:03:58 CDT [facility] CPT-66982 Level 3 Est. Patient 14:46:45 PHYSICIAN SCRIBE Harinder Hernandez [facility] CPT-53441 Level 3 Est. Patient 09:35:49 PHYSICIAN SCRIBE [facility] CPT-53782 Level 3 Est. Patient 09:29:37 PHYSICIAN SCRIBE [facility] CPT-87701 Level 3 Est. Patient 15:51:07 CDT Harinder Hernandez [facility] CPT-23712 Level 3 Est. Patient 18:13:13 CDT Harinder Hernandez [facility] CPT-28293 Level 3 Est. Patient 10:44:19 CDT Harinder Shaye Hernandez [facility] CPT-89360 Level 4 Est. Patient 10:07:19 PHYSICIAN SCRIBE Harinder Shaye [facility] CPT-87616 Level 3 Est. Patient 15:59:32 PHYSICIAN SCRIBE Harinder Cr [facility] Procedures Code Procedure Name Date Entry Date Standard Description CPT-17164 Abd compl w upright - XRAY USE ONLY 14:48:09 CDT 02/18 CPT-88811 Port a cath flush 13:46:05 CDT CPT-64396 Hip, complete, 2-3 views - XRAY USE ONLY 10:28:40 CDT CPT-97624 BMP - LAB USE ONLY 16:45:09 PHYSICIAN SCRIBE CPT-13881 Port a cath flush 12:00:13 PHYSICIAN SCRIBE CPT-TCMM Transitional Care Mgmt-Moderate 11:20:16 PHYSICIAN SCRIBE CPT-44695 First Vx - Ix admin for Medicare patients 17:35:15 CDT CPT-45383 Fluzone Preservative Free Intramuscular Suspension 17:35 :15 CDT CPT-27542 Microalbumin - LAB USE ONLY 11:52:05 CDT CPT-TCMM Transitional Care Mgmt-Moderate 11:33:57 CDT CPT-67122 No Charge Offi Visit 14:11:29 CDT CPT-20609 Magnesium - LAB USE ONLY 10:45:44 CDT CPT-22983 Lipid - LAB USE ONLY 10:45:44 CDT CPT-18082 CBC - LAB USE ONLY 10:45:44 CDT CPT-95404 Venipuncture Draw Fee 10:45:43 CDT CPT-67573 Venipuncture Draw Fee 18:21:27 CDT CPT-JTINJ Asp/Joint Injection 18:38:04 CDT CPT-74273 Immunization Each Additional Inj 17:38:04 CDT CPT-69786 Immunization Single Admin 17:38:04 CDT CPT-41004 Prevnar 13 17:38:04 CDT CPT-82031 Fluzone Quadrivalent preservative free (>=3yrs.) 17:38: 04 CDT CPT-34397 No Charge Offi Visit 11:14:03 CDT CPT-85974 Chest 2V Frontal and Lat 14:00:18 CDT CPT-OV Office Visit 16:10:28 CDT CPT-JTINJ Asp/Joint Injection 09:03:57 CDT CPT-Cryo Cryotherapy 09:35:49 PHYSICIAN SCRIBE CPT-JTINJ Asp/Joint Injection 09:34:45 PHYSICIAN SCRIBE CPT-J2930 Solu Medrol 125 mg (Methyl Prednisolone Sodium Succinate) 20:37:27 CDT CPT-09246 Abx/Therapy Injection 20:37:27 CDT CPT-99398 Port a cath flush 08:15:51 CDT CPT-29607 Port a cath flush 09:54:16 CDT CPT-36116 Port a cath flush 09:38:02 CDT CPT-37499 Port a cath flush 11:00:27 PHYSICIAN SCRIBE
--- OUTSIDE RECORDS SUMMARY | 2017-12-29 02:33 | XMS REPORT | Clinical Summary ---
Author Author Admin, QIE Organization [facility] [employer] Address Unknown Phone Unavailable Allergies, Adverse Reactions, [...] Harinder Hernandez DO IBUPROFEN Critical Active Harinder Henrandez DO HYDROCODONE-ACETAMINOPHEN Critical Active Harinder Hernandez DO [...] not elsewhere classified Myocardial Infarction: 410.90 Active Hrainder Hernandez DO Acute myocardial infarction, unspecified site, [...] tab SL q5min PRN chest pain NITROGLYCERIN 41070263317 Active Meenu Alejo LPN Active THEOPHYLLINE ER 300 MG ORAL TABLET EXTENDED RELEASE 12 HOUR 1 po BID THEOPHYLLINE 05822470231 Active Kortney Mccain Active POTASSIUM CHLORIDE ER 20 MEQ ORAL TABLET EXTENDED RELEASE 1 po q day POTASSIUM CHLORIDE 42016187399 Active Kortney Mccain Active POTASSIUM CHLORIDE 20 MEQ ORAL PACKET 1 tab po q day POTASSIUM CHLORIDE 23390815853 No Longer Active Kortney Mccain Active POTASSIUM CHLORIDE ER 10 MEQ ORAL CAPSULE EXTENDED RELEASE 1 capsule BID 2016 POTASSIUM CHLORIDE 99421382574 No Longer Active Kortney Mccain Active LASIX 20 MG ORAL TABLET 1 tablet by mouth every morning FUROSEMIDE 04853205003 No Longer Active Kortney Mccain Active SPIRONOLACTONE 25 MG ORAL TABLET 1 tablet by mouth daily SPIRONOLACTONE 79567660430 Active Kortney Mccain Active FLUOXETINE HCL 10 MG ORAL CAPSULE 1 po qd for depression/anxiety FLUOXETINE HCL 47910636574 Active Harinder Hernandez DO Active VOLTAREN 1 % TRANSDERMAL GEL apply q 6-8 hour to left arm as needed for pain DICLOFENAC SODIUM 07600934746 Active Korteny Mccain Active ALBUTEROL SULFATE (2.5 MG/3ML) 0.083% INHALATION NEBULIZATION SOLUTION 1 vial neb q 4hrs for severe asthma. 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 NIFEDIPINE 51072920208 Active Kortney Mccain Active AMLODIPINE BESYLATE 5 MG ORAL TABLET 1 tablet by mouth daily 2016 AMLODIPINE BESYLATE 23628266725 No Longer Active Harinder Hernandez DO Active TOPAMAX 25 MG ORAL TABLET 1 tab po BID TOPIRAMATE 56889145435 Active Kortney Mccain Active FLUTICASONE PROPIONATE 50 MCG/ACT NASAL SUSPENSION 2 sprays per nostril daily PRN Allergies FLUTICASONE PROPIONATE 14318005343 Active Kortney Mccain Active NIFEDIPINE ER 30 MG ORAL TABLET EXTENDED RELEASE 24 HOUR 1 daily NIFEDIPINE 31404969794 No Longer Active Harinder Hernandez DO Active FLOVENT HFA 110 MCG/ACT INHALATION AEROSOL 2 puffs inhaled b.i.d. FLUTICASONE PROPIONATE HFA 60780397553 Active Harinder Hernandez DO Active EPIPEN 2-BRUNA 0.3 MG/0.3ML INJECTION SOLUTION AUTO-INJECTOR 1 INJ NEEDED EPINEPHRINE 97815025941 Active Kortney Mccain Active PREDNISONE 20 MG ORAL TABLET 1 tab twice daily for 3 day, then one daily for three days PREDNISONE 91681238661 No Longer Active Harinder Hernandez DO Active PREDNISONE 20 MG ORAL TABLET 1 tablet twice daily for 2 days, then 1 tablet once daily for 2 days PREDNISONE 49625365273 No Longer Active Harinder Hernandez DO Active ASMANEX 120 METERED DOSES 220 MCG/INH INHALATION AEROSOL POWDER BREATH ACTIVATED 2 puffs orally twice daily MOMETASONE FUROATE 74445716161 Active Jeri Sosa LPN Active TOPIRAMATE 25 MG ORAL TABLET 1 tab po BID TOPIRAMATE 83976233560 No Longer Active Nettie Newberry APRN Active AMLODIPINE BESYLATE 5 MG ORAL TABLET Take 1 tab po daily AMLODIPINE BESYLATE 49081975779 No Longer Active Nettie Newberry APRN Active MECLIZINE HCL 25 MG ORAL TABLET 1 tablet three times daily for 3 days, then 1/ 2 tab three times daily for 3 days. MECLIZINE HCL 17859489414 No Longer Active Nettie Newberry MAHENDRA Active AMITRIPTYLINE HCL 25 MG ORAL TABLET 1 q hs prn AMITRIPTYLINE HCL 66993485733 No Longer Active Nettie Newberry MAHENDRA Active DILAUDID 2 MG ORAL TABLET Take 1/2 tab po every 4 hours as needed for pain HYDROMORPHONE HCL 65526893447 No Longer Active Nettie Newberry APRN Active CLOPIDOGREL BISULFATE 75 MG ORAL TABLET 1 tab by mouth once daily CLOPIDOGREL BISULFATE 71354754274 Active Harinder Hernandez DO Active ATORVASTATIN CALCIUM 10 MG ORAL TABLET 1 at bedtime ATORVASTATIN CALCIUM 72278953210 Active Kortney Mccain Active LOVASTATIN 40 MG ORAL TABLET Take 1 tab po every hs LOVASTATIN 03046175550 No Longer Active Harinder Hernandez DO Active PREDNISONE 20 MG ORAL TABLET 2 tabs daily for 4 days, 1 tab daily for 4 days, 1/2 tab daily for 4 days PREDNISONE 34256145257 No Longer Active Harinder Hernandez DO Active LEVAQUIN 500 MG ORAL TABLET Take 1 tab po daily x 8 days LEVOFLOXACIN 86486147417 No Longer Active Harinder Hernandez DO Active VENTOLIN HFA 108 (90 Base) MCG/ACT INHALATION AEROSOL SOLUTION 2 -4 puffs four times a day PRN ALBUTEROL SULFATE 21824026931 No Longer Active Jeri Sosa LPN Active ACEBUTOLOL HCL 200 MG ORAL CAPSULE 1 cap in the morning and 2 caps in the evening ACEBUTOLOL HCL 08310578850 No Longer Active Harinder Hernandez DO Active CEFDINIR 300 MG ORAL CAPSULE take 1 cap po bid x 10 days CEFDINIR 38678709251 No Longer Active Harinder Hernandez DO Active LOVASTATIN 40 MG ORAL TABLET 1 pill by mouth nightly for cholesterol LOVASTATIN 95761367655 No Longer Active Nettie Newberry APRN Active NITROSTAT 0.4 MG SUBLINGUAL TABLET SUBLINGUAL 1 tab under tongueas needed for chest pain ( may take 3 total, 5 min apart, then call 911) NITROGLYCERIN 65688443551 No Longer Active Nettie Newberry APRN Active POTASSIUM CHLORIDE ER 10 MEQ ORAL CAPSULE EXTENDED RELEASE 1 capsule by mouth daily POTASSIUM CHLORIDE 59236240395 No Longer Active Nettie Newberry APRN Active TESSALON PERLES 100 MG ORAL CAPSULE 1 to 2 tablets by mouth 3 times daily as needed for cough BENZONATATE 61623769811 No Longer Active Nettie Newberry APRN Active PREDNISONE 20 MG ORAL TABLET 2 po qd x 5 days PREDNISONE 08461889940 No Longer Active Jae Morgan MD Active AZITHROMYCIN 250 MG ORAL TABLET 2 po qd x 1 day, then 1 po qd x 4 days 12/30 AZITHROMYCIN 19116607419 No Longer Active Jae Morgan MD Active PREDNISONE 20 MG ORAL TABLET 1 tab twice daily for 3 day, then one daily for three days PREDNISONE 46511452838 No Longer Active Jae Morgan MD Active SINGULAIR 10 MG ORAL TABLET 1 pill by mouth every evening for breathing. 2014 MONTELUKAST SODIUM 06240649166 Active Kortney Mccain Active TYLENOL 325 MG ORAL TABLET 3 by mouth q4h as needed ACETAMINOPHEN 06077091446 Active Harinder Hernandez DO Active POTASSIUM CHLORIDE ER 10 MEQ ORAL TABLET EXTENDED RELEASE take 1 tab po daily POTASSIUM CHLORIDE 29398547975 No Longer Active Harinder Hernandez DO Active PREDNISONE 20 MG ORAL TABLET 1 TID x 2 days, then 1 BID x 3 days, then 1 Daily x 3 days, then stop PREDNISONE 83707918344 No Longer Active John Montemayor APRN Active LEVAQUIN 500 MG ORAL TABLET 1 tablet by mouth daily LEVOFLOXACIN 85157402920 No Longer Active Jillina Frazell STRATEGIC SOURCING SPECIALIST Active NEURONTIN 300 MG ORAL CAPSULE 1 cap by mouth three times daily for restless leg GABAPENTIN 26378189862 No Longer Active Harinder Hernandez DO Active BENZONATATE 100 MG ORAL CAPSULE 1 cap po TID PRN BENZONATATE 14803036857 No Longer Active Harinder Hernandez DO Active MONTELUKAST SODIUM 10 MG ORAL TABLET 1 tab po in the evening 2014 MONTELUKAST SODIUM 86531433016 No Longer Active Harinder Hernandez DO Active MUPIROCIN 2 % EXTERNAL OINTMENT apply to affected area BID x 14 days MUPIROCIN 40223944793 No Longer Active Harinder Hernandez DO Active TYLENOL EXTRA STRENGTH 500 MG ORAL TABLET as needed ACETAMINOPHEN 59629827807 No Longer Active Harinder Hernandez DO Active PREDNISONE 10 MG ORAL TABLET 1 tab po daily PREDNISONE 40466122200 No Longer Active Harinder Hernandez DO Active PREDNISONE 20 MG ORAL TABLET 2 tabs daily for 4 days, 1 tab daily for 4 days, 1/2 tab daily for 4 days PREDNISONE 08121112968 No Longer Active Harinder Hernandez DO Active AZITHROMYCIN 250 MG ORAL TABLET 2 po qd x 1 day, then 1 po qd x 4 days 04/06 AZITHROMYCIN 61323896427 No Longer Active Harinder Hernandez DO Active PREDNISONE 20 MG ORAL TABLET 3 tabs today, then 1 tab twice daily for 3 day, then one daily for three days PREDNISONE 86152756310 No Longer Active Harinder Hernandez DO Active NIFEDIAC CC 30 MG ORAL TABLET EXTENDED RELEASE 24 HOUR 1 tablet daily for raynaud's syndrome NIFEDIPINE 24020289956 No Longer Active Tawnya Pardo MA Active AMBIEN 10 MG ORAL TABLET 1/2 tab by mouth at bedtime as needed for sleep 2013 ZOLPIDEM TARTRATE 71711937908 Active Kortney Mccain Active CLONAZEPAM 1 MG ORAL TABLET 1 tablet at bedtime for insomnia and restless legs CLONAZEPAM 92239156830 Active Harinder Hernandez DO Active CLONAZEPAM 0.5 MG ORAL TABLET 1 tab po daily CLONAZEPAM 65516054747 No Longer Active Harinder Hernandez DO Active PREDNISONE 10 MG ORAL TABLET 1 tablet daily for COPD PREDNISONE 61281061737 Active Kortney Mccain Active PROAIR HFA 108 (90 Base) MCG/ACT INHALATION AEROSOL SOLUTION 2 puffs four times a day as needed ALBUTEROL SULFATE 82031707807 Active Harinder Hernandez DO Active FLOVENT HFA 110 MCG/ACT INHALATION AEROSOL 2 puffs inhaled b.i.d. FLUTICASONE PROPIONATE HFA 95801568917 Active Kortney Mccain Active ACIPHEX 20 MG ORAL TABLET DELAYED RELEASE 1 tab po daily RABEPRAZOLE SODIUM 96389450265 Active Kaylah Newberry Active CLONAZEPAM 0.5 MG ORAL TABLET 1 tab po daily CLONAZEPAM 0.5 MG ORAL TABLET 960742 CLONAZEPAM Inactive PREDNISONE 20 MG ORAL TABLET 3 tabs today, then 1 tab twice daily for 3 day, then one daily for three days PREDNISONE 20 MG ORAL TABLET 046617 PREDNISONE Inactive PREDNISONE 20 MG ORAL TABLET 2 tabs daily for 4 days, 1 tab daily for 4 days, 1/2 tab daily for 4 days PREDNISONE 20 MG ORAL TABLET 859443 PREDNISONE Inactive PREDNISONE 10 MG ORAL TABLET 1 tab po daily PREDNISONE 10 MG ORAL TABLET 378325 PREDNISONE Inactive TYLENOL EXTRA STRENGTH 500 MG ORAL TABLET as needed TYLENOL EXTRA STRENGTH 500 MG ORAL TABLET 802076 ACETAMINOPHEN Inactive MUPIROCIN 2 % EXTERNAL OINTMENT apply to affected area BID x 14 days MUPIROCIN 2 % EXTERNAL OINTMENT 291199 MUPIROCIN Inactive MONTELUKAST SODIUM 10 MG ORAL TABLET 1 tab po in the evening 2014 MONTELUKAST SODIUM 10 MG ORAL TABLET 764421 MONTELUKAST SODIUM Inactive BENZONATATE 100 MG ORAL CAPSULE 1 cap po TID PRN BENZONATATE 100 MG ORAL CAPSULE 028730 BENZONATATE Inactive NEURONTIN 300 MG ORAL CAPSULE 1 cap by mouth three times daily for restless leg NEURONTIN 300 MG ORAL CAPSULE 585930 GABAPENTIN Inactive LEVAQUIN 500 MG ORAL TABLET 1 tablet by mouth daily LEVAQUIN 500 MG ORAL TABLET 456236 LEVOFLOXACIN Inactive PREDNISONE 20 MG ORAL TABLET 1 TID x 2 days, then 1 BID x 3 days, then 1 Daily x 3 days, then stop PREDNISONE 20 MG ORAL TABLET 073312 PREDNISONE Inactive POTASSIUM CHLORIDE ER 10 MEQ ORAL TABLET EXTENDED RELEASE take 1 tab po daily POTASSIUM CHLORIDE ER 10 MEQ ORAL TABLET EXTENDED RELEASE POTASSIUM CHLORIDE Inactive PREDNISONE 20 MG ORAL TABLET 1 tab twice daily for 3 day, then one daily for three days PREDNISONE 20 MG ORAL TABLET 069673 PREDNISONE Inactive TESSALON PERLES 100 MG ORAL CAPSULE 1 to 2 tablets by mouth 3 times daily as needed for cough TESSALON PERLES 100 MG ORAL CAPSULE 500847 BENZONATATE Inactive POTASSIUM CHLORIDE ER 10 MEQ ORAL CAPSULE EXTENDED RELEASE 1 capsule by mouth daily POTASSIUM CHLORIDE ER 10 MEQ ORAL CAPSULE EXTENDED RELEASE POTASSIUM CHLORIDE Inactive NITROSTAT 0.4 MG SUBLINGUAL TABLET SUBLINGUAL 1 tab under tongueas needed for chest pain ( may take 3 total, 5 min apart, then call 911) NITROSTAT 0.4 MG SUBLINGUAL TABLET SUBLINGUAL 625560 NITROGLYCERIN Inactive LOVASTATIN 40 MG ORAL TABLET 1 pill by mouth nightly for cholesterol LOVASTATIN 40 MG ORAL TABLET 523379 LOVASTATIN Inactive CEFDINIR 300 MG ORAL CAPSULE take 1 cap po bid x 10 days CEFDINIR 300 MG ORAL CAPSULE 059379 CEFDINIR Inactive ACEBUTOLOL HCL 200 MG ORAL CAPSULE 1 cap in the morning and 2 caps in the evening ACEBUTOLOL HCL 200 MG ORAL CAPSULE 521208 ACEBUTOLOL HCL Inactive VENTOLIN HFA 108 (90 Base) MCG/ACT INHALATION AEROSOL SOLUTION 2 -4 puffs four times a day PRN VENTOLIN HFA 108 (90 Base) MCG/ ACT INHALATION AEROSOL SOLUTION ALBUTEROL SULFATE Inactive LEVAQUIN 500 MG ORAL TABLET Take 1 tab po daily x 8 days LEVAQUIN 500 MG ORAL TABLET 710622 LEVOFLOXACIN Inactive PREDNISONE 20 MG ORAL TABLET 2 tabs daily for 4 days, 1 tab daily for 4 days, 1/2 tab daily for 4 days PREDNISONE 20 MG ORAL TABLET 125950 PREDNISONE Inactive LOVASTATIN 40 MG ORAL TABLET Take 1 tab po every hs LOVASTATIN 40 MG ORAL TABLET 267773 LOVASTATIN Inactive DILAUDID 2 MG ORAL TABLET Take 1/2 tab po every 4 hours as needed for pain DILAUDID 2 MG ORAL TABLET 704327 HYDROMORPHONE HCL Inactive AMITRIPTYLINE HCL 25 MG ORAL TABLET 1 q hs prn AMITRIPTYLINE HCL 25 MG ORAL TABLET 828445 AMITRIPTYLINE HCL Inactive MECLIZINE HCL 25 MG ORAL TABLET 1 tablet three times daily for 3 days, then 1/ 2 tab three times daily for 3 days. MECLIZINE HCL 25 MG ORAL TABLET 019171 MECLIZINE HCL Inactive AMLODIPINE BESYLATE 5 MG ORAL TABLET Take 1 tab po daily AMLODIPINE BESYLATE 5 MG ORAL TABLET 026967 AMLODIPINE BESYLATE Inactive TOPIRAMATE 25 MG ORAL TABLET 1 tab po BID TOPIRAMATE 25 MG ORAL TABLET 153362 TOPIRAMATE Inactive PREDNISONE 20 MG ORAL TABLET 1 tablet twice daily for 2 days, then 1 tablet once daily for 2 days PREDNISONE 20 MG ORAL TABLET 853716 PREDNISONE Inactive PREDNISONE 20 MG ORAL TABLET 1 tab twice daily for 3 day, then one daily for three days PREDNISONE 20 MG ORAL TABLET 781779 PREDNISONE Inactive NIFEDIPINE ER 30 MG ORAL TABLET EXTENDED RELEASE 24 HOUR 1 daily NIFEDIPINE ER 30 MG ORAL TABLET EXTENDED RELEASE 24 HOUR NIFEDIPINE Inactive AMLODIPINE BESYLATE 5 MG ORAL TABLET 1 tablet by mouth daily 2016 AMLODIPINE BESYLATE 5 MG ORAL TABLET 773067 AMLODIPINE BESYLATE Inactive LASIX 20 MG ORAL TABLET 1 tablet by mouth every morning LASIX 20 MG ORAL TABLET 245042 FUROSEMIDE Inactive POTASSIUM CHLORIDE ER 10 MEQ ORAL CAPSULE EXTENDED RELEASE 1 capsule BID 2016 POTASSIUM CHLORIDE ER 10 MEQ ORAL CAPSULE EXTENDED RELEASE POTASSIUM CHLORIDE Inactive POTASSIUM CHLORIDE 20 MEQ ORAL PACKET 1 tab po q day POTASSIUM CHLORIDE 20 MEQ ORAL PACKET 0994287 POTASSIUM CHLORIDE Inactive AZITHROMYCIN 250 MG ORAL TABLET 2 po qd x 1 day, then 1 po qd x 4 days 04/06 AZITHROMYCIN 250 MG ORAL TABLET 317786 AZITHROMYCIN Inactive AZITHROMYCIN 250 MG ORAL TABLET 2 po qd x 1 day, then 1 po qd x 4 days 12/30 AZITHROMYCIN 250 MG ORAL TABLET 380814 AZITHROMYCIN Inactive PREDNISONE 20 MG ORAL TABLET 2 po qd x 5 days PREDNISONE 20 MG ORAL TABLET 225027 PREDNISONE Inactive Vital Signs Date Name Value [...] Panel - Chemistry sodium, serum 140 mmol/L 785-424 7010/07/13 potassium, serum 3.2 mmol/L 3.5-5.2 chloride, serum 103 mmol/L 98-107 carbon dioxide, venous blood 26.9 mmol/L 21.0-32.0 blood glucose 93 mg/dL 65-110 calcium, serum 9.2 mg/dL 8.5-10.1 urea nitrogen, blood 13 mg/dL 7-18 creatinine, serum 0.84 mg/dL 0.60-1.30 sodium, serum 140 mmol/L 387-109 0369/08/21 potassium, serum 3.8 mmol/L 3.5-5.2 chloride, serum [...] ... - Chemistry sodium, serum 141 mmol/L 469-923 8926/08/07 carbon dioxide, venous blood 34.0 mmol/L 21.0-32.0 [...] 1.40 mg/dL 0.00-1.00 cholesterol, serum 192 mg/dL 076-173 9517/10/19 triglyceride, serum, fasting 71 mg/dL 30-200 HDL cholesterol, serum 72 mg/dL 32-60 LDL cholesterol, serum 106 mg/dL 0-130 Lab Report: THEOPHYLLINE - Toxicology theophylline level, serum 3.1 ug/mL 10.0-20.0 Encounters Code Encounter Date Provider Facility CPT-34361 Level 4 Est. Patient 14:45:25 CDT Harinder Cr [facility] CPT-37745 Level 4 Est. Patient 09:15:13 CDT Harinder Cr [facility] CPT-32864 Level 3 Est. Patient 11:51:58 CDT Harinder Cr [facility] CPT-43187 Level 3 Est. Patient 11:30:05 CDT Harinder Cr [facility] CPT-74291 Level 4 Est. Patient 10:19:23 CDT Harindre Cr [facility] CPT-59904 Level 3 Est. Patient 09:58:58 CDT Harinder Cr [facility] CPT-05335 Level 3 Est. Patient 12:37:21 CDT Harinder Cr [facility] CPT-37193 Level 3 Est. Patient 18:37:17 CDT Harinder Cr [facility] CPT-21159 Level 4 Est. Patient 11:15:54 CDT Nettie Newberry [facility] CPT-87803 Level 3 Est. Patient 16:42:24 CDT Harinder Hernandez [facility] CPT-99746 Level 3 Est. Patient 15:03:36 CDT Harinder Hernandez [facility] CPT-63316 Level 3 Est. Patient 15:03:20 CDT Harinder Shaye David [facility] CPT-98102 Level 3 Est. Patient 12:14:34 CDT Harinder Shaye Hernandez [facility] CPT-51963 Level 3 Est. Patient 13:47:15 CDT Harinder Shaye David [facility] CPT-30610 Level 3 Est. Patient 14:08:24 CDT Harinder Hernandez [facility] CPT-48725 Level 3 Est. Patient 10:07:15 CDT Harinder Cr David [facility] CPT-96318 Level 3 Est. Patient 10:06:59 CDT Harinder Hernandez [facility] CPT-24909 Level 3 Est. Patient 15:53:29 CDT Jae Morgan MD [facility] CPT-40333 Level 3 Est. Patient 17:19:04 CDT Harinder Cr David [facility] CPT-00364 Level 3 Est. Patient 11:13:01 CDT Harinder Hernandez [facility] CPT-95382 Level 3 Est. Patient 09:03:58 CDT Harinder Hernandez [facility] CPT-89536 Level 3 Est. Patient 14:46:45 DIRECTOR OF HOME ECONOMICS Harinder Hernandez [facility] CPT-22237 Level 3 Est. Patient 09:35:49 DIRECTOR OF HOME ECONOMICS Harinder Hernandez [facility] CPT-30541 Level 3 Est. Patient 09:29:37 DIRECTOR OF HOME ECONOMICS Harinder Hernandez [facility] CPT-94939 Level 3 Est. Patient 15:51:07 CDT Harinder Hernandez [facility] CPT-52029 Level 3 Est. Patient 18:13:13 CDT Harinder Hernandez [facility] CPT-23920 Level 3 Est. Patient 10:44:19 CDT Harinder Hernandez [facility] CPT-35376 Level 4 Est. Patient 10:07:19 DIRECTOR OF HOME ECONOMICS Harinder Cr [facility] CPT-65870 Level 3 Est. Patient 15:59:32 DIRECTOR OF HOME ECONOMICS Harinder Cr [facility] Procedures Code Procedure Name Date Entry Date Standard Description CPT-23032 Abd compl w upright - XRAY USE ONLY 14:48:09 CDT 02/18 CPT-64029 Port a cath flush 13:46:05 CDT CPT-62421 Hip, complete, 2-3 views - XRAY USE ONLY 10:28:40 CDT CPT-54324 BMP - LAB USE ONLY 16:45:09 DIRECTOR OF HOME ECONOMICS CPT-48697 Port a cath flush 12:00:13 DIRECTOR OF HOME ECONOMICS CPT-TCMM Transitional Care Mgmt-Moderate 11:20:16 DIRECTOR OF HOME ECONOMICS CPT-66722 First Vx - Ix admin for Medicare patients 17:35:15 CDT CPT-65013 Fluzone Preservative Free Intramuscular Suspension 17:35 :15 CDT CPT-50461 Microalbumin - LAB USE ONLY 11:52:05 CDT CPT-TCMM Transitional Care Mgmt-Moderate 11:33:57 CDT CPT-65013 No Charge Offi Visit 14:11:29 CDT CPT-10095 Magnesium - LAB USE ONLY 10:45:44 CDT CPT-91026 Lipid - LAB USE ONLY 10:45:44 CDT CPT-13698 CBC - LAB USE ONLY 10:45:44 CDT CPT-39047 Venipuncture Draw Fee 10:45:43 CDT CPT-81145 Venipuncture Draw Fee 18:21:27 CDT CPT-JTINJ Asp/Joint Injection 18:38:04 CDT CPT-81526 Immunization Each Additional Inj 17:38:04 CDT CPT-61130 Immunization Single Admin 17:38:04 CDT CPT-75476 Prevnar 13 17:38:04 CDT CPT-25362 Fluzone Quadrivalent preservative free (>=3yrs.) 17:38: 04 CDT CPT-35974 No Charge Offi Visit 11:14:03 CDT CPT-53263 Chest 2V Frontal and Lat 14:00:18 CDT CPT-OV Office Visit 16:10:28 CDT CPT-JTINJ Asp/Joint Injection 09:03:57 CDT CPT-Cryo Cryotherapy 09:35:49 DIRECTOR OF HOME ECONOMICS CPT-JTINJ Asp/Joint Injection 09:34:45 DIRECTOR OF HOME ECONOMICS CPT-J2930 Solu Medrol 125 mg (Methyl Prednisolone Sodium Succinate) 20:37:27 CDT CPT-02325 Abx/Therapy Injection 20:37:27 CDT CPT-80520 Port a cath flush 08:15:51 CDT CPT-57779 Port a cath flush 09:54:16 CDT CPT-45284 Port a cath flush 09:38:02 CDT CPT-19317 Port a cath flush 11:00:27 DIRECTOR OF HOME ECONOMICS
--- OUTSIDE RECORDS SUMMARY | 2017-12-29 02:35 | XMS REPORT | Clinical Summary ---
Author Author Admin, QIE Organization [facility] Address Unknown Phone Unavailable Allergies, [...] Harinder Hernandez DO AVELOX Critical Active Harinder Heranndez DO DOXYCYCLINE Critical Active Harinder Hernandez DO [...] CR-TABS 1 po q day POTASSIUM CHLORIDE 38893297326 Active Kortney Mccain Active POTASSIUM CHLORIDE 20 MEQ ORAL PACK 1 tab po q day POTASSIUM CHLORIDE 66607704064 No Longer Active Kortney Mccain Active POTASSIUM CHLORIDE CR 10 MEQ CPCR 1 capsule BID POTASSIUM CHLORIDE 64775154489 No Longer Active Kortney Mccain Active LASIX 20 MG TAB 1 tablet by mouth every morning FUROSEMIDE 36159219264 No Longer Active Kortney Mccain Active SPIRONOLACTONE 25 MG TAB 1 tablet by mouth daily SPIRONOLACTONE 27632528053 Active Ciera Pimentel Active FLUOXETINE HCL 10 MG ORAL CAPS 1 po qd for depression/anxiety FLUOXETINE HCL 84168183452 Active Harinder Hernandez DO Active VOLTAREN 1 % GEL apply q 6-8 hour to left arm as needed for pain DICLOFENAC SODIUM 99262121915 Active Harinder W David DO Active ALBUTEROL SULFATE 0.083 % NEBU SOLN 1 vial neb q 4hrs for severe asthma. 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 FLUTICASONE PROPIONATE HFA 82019321978 Active Harinder Hernandez DO Active EPIPEN 2-BRUNA 0.3 MG/0.3ML INJ SOAJ 1 INJ NEEDED EPINEPHRINE 42241038579 Active Harinder Hernandez DO Active PREDNISONE 20 MG TAB 1 tab twice daily for 3 day, then one daily for three days PREDNISONE 41783533159 No Longer Active Harinder Hernandez DO Active PREDNISONE 20 MG TAB 1 tablet twice daily for 2 days, then 1 tablet once daily for 2 days PREDNISONE 04055561660 No Longer Active Harinder Hernandez DO Active ASMANEX 120 METERED DOSES 220 MCG/INH INH AEPB 2 puffs orally twice daily MOMETASONE FUROATE 93734170671 Active Jeri Sosa LPN Active TOPIRAMATE 25 MG TABS 1 tab po BID TOPIRAMATE 17650110938 No Longer Active Nettie Newberry APRN Active AMLODIPINE BESYLATE 5 MG ORAL TABS Take 1 tab po daily AMLODIPINE BESYLATE 36307455498 No Longer Active Nettie Newberry APRN Active MECLIZINE HCL 25 MG TAB 1 tablet three times daily for 3 days, then 1/2 tab three times daily for 3 days. MECLIZINE HCL 04505355824 No Longer Active Nettie Newberry APRN Active AMITRIPTYLINE HCL 25 MG ORAL TABS 1 q hs prn AMITRIPTYLINE HCL 96512892441 No Longer Active Nettie Newberry APRN Active DILAUDID 2 MG ORAL TABS Take 1/2 tab po every 4 hours as needed for pain 2014 HYDROMORPHONE HCL 81701533449 No Longer Active Nettie Newberry APRN Active CLOPIDOGREL BISULFATE 75 MG ORAL TABS 1 tab by mouth once daily CLOPIDOGREL BISULFATE 31253727422 Active Harinder Hernandez DO Active ATORVASTATIN CALCIUM 10 MG ORAL TABS 1 at bedtime ATORVASTATIN CALCIUM 00465097946 Active Harinder Hernandez DO Active LOVASTATIN 40 MG ORAL TABS Take 1 tab po every hs LOVASTATIN 81277578639 No Longer Active Harinder Hernandez DO Active PREDNISONE 20 MG TAB 2 tabs daily for 4 days, 1 tab daily for 4 days, 1/2 tab daily for 4 days PREDNISONE 19540267612 No Longer Active Harinder Hernandez DO Active LEVAQUIN 500 MG ORAL TABS Take 1 tab po daily x 8 days LEVOFLOXACIN 02839287445 No Longer Active Harinder Hernandez DO Active VENTOLIN HFA 108 (90 BASE) MCG/ACT AERS 2 -4 puffs four times a day PRN 2013 ALBUTEROL SULFATE 57269130825 No Longer Active Jeri Sosa LPN Active ACEBUTOLOL HCL 200 MG CAPS 1 cap in the morning and 2 caps in the evening ACEBUTOLOL HCL 18771650296 No Longer Active Harinder Hernandez DO Active CEFDINIR 300 MG ORAL CAPS take 1 cap po bid x 10 days CEFDINIR 79207952638 No Longer Active Harinder Hernandez DO Active LOVASTATIN 40 MG TABS 1 pill by mouth nightly for cholesterol LOVASTATIN 78401711967 No Longer Active Nettie Newberry MAHENDRA Active NITROSTAT 0.4 MG SUBL 1 tab under tongueas needed for chest pain ( may take 3 total, 5 min apart, then call 911) NITROGLYCERIN 47591370770 No Longer Active Nettie Newberry MAHENDRA Active POTASSIUM CHLORIDE CR 10 MEQ CPCR 1 capsule by mouth daily 02/14 POTASSIUM CHLORIDE 42404609490 No Longer Active Nettie Newberry MAHENDRA Active TESSALON PERLES 100 MG CAP 1 to 2 tablets by mouth 3 times daily as needed for cough BENZONATATE 58783047935 No Longer Active Nettie Newberry MAHENDRA Active THEOPHYLLINE ER 200 MG ORAL [id number] Take 1 tab every 12 hours THEOPHYLLINE 11886849756 Active Harinder Hernandez DO Active PREDNISONE 20 MG TAB 2 po qd x 5 days PREDNISONE 48677006095 No Longer Active Jae Morgan MD Active AZITHROMYCIN 250 MG TABS 2 po qd x 1 day, then 1 po qd x 4 days AZITHROMYCIN 21852404090 No Longer Active Jae Morgan MD Active PREDNISONE 20 MG TAB 1 tab twice daily for 3 day, then one daily for three days PREDNISONE 72822810377 No Longer Active Jae Morgan MD Active SINGULAIR 10 MG TABS 1 pill by mouth every evening for breathing. MONTELUKAST SODIUM 98417138888 Active Tawnya Pardo MA Active TYLENOL 325 MG TAB 3 by mouth q4h as needed ACETAMINOPHEN 55270983175 Active Harinder Hernandez DO Active POTASSIUM CHLORIDE ER 10 MEQ CR-TABS take 1 tab po daily POTASSIUM CHLORIDE 85335199647 No Longer Active Harinder Hernandez DO Active PREDNISONE 20 MG TAB 1 TID x 2 days, then 1 BID x 3 days, then 1 Daily x 3 days, then stop PREDNISONE 28384828531 No Longer Active Jillina Frazellor BRICEÑON Active LEVAQUIN 500 MG TAB 1 tablet by mouth daily LEVOFLOXACIN 33582400206 No Longer Active Jillina Frazell [employer]UST [employer] REPAIRER Active NEURONTIN 300 MG CAP 1 cap by mouth three times daily for restless leg 06/22 GABAPENTIN 81371137600 No Longer Active Harinder Hernandez DO Active BENZONATATE 100 MG CAPS 1 cap po TID PRN BENZONATATE 50001671346 No Longer Active Harinder Hernandez DO Active MONTELUKAST SODIUM 10 MG TABS 1 tab po in the evening MONTELUKAST SODIUM 86807226590 No Longer Active Harinder Hernandez DO Active MUPIROCIN 2 % OINT apply to affected area BID x 14 days MUPIROCIN 58881473104 No Longer Active Harinder Hernandez DO Active TYLENOL EXTRA STRENGTH 500 MG TABS as needed ACETAMINOPHEN 03095985809 No Longer Active Harinder Hernandez DO Active PREDNISONE 10 MG TABS 1 tab po daily PREDNISONE 37367395358 No Longer Active Harinder Hernandez DO Active PREDNISONE 20 MG TAB 2 tabs daily for 4 days, 1 tab daily for 4 days, 1/2 tab daily for 4 days PREDNISONE 06350982489 No Longer Active Harinder Hernandez DO Active AZITHROMYCIN 250 MG TABS 2 po qd x 1 day, then 1 po qd x 4 days AZITHROMYCIN 75889849833 No Longer Active Harinder Hernandez DO Active PREDNISONE 20 MG TAB 3 tabs today, then 1 tab twice daily for 3 day, then one daily for three days PREDNISONE 44187862242 No Longer Active Harinder Hernandez DO Active NIFEDIAC CC 30 MG [id number] 1 tablet daily for raynaud's syndrome NIFEDIPINE 21323221545 No Longer Active Tawnya Pardo MA Active AMBIEN 10 MG TAB 1/2 tab by mouth at bedtime as needed for sleep ZOLPIDEM TARTRATE 52152545216 Active Harinder Hernandez DO Active CLONAZEPAM 1 MG TABS 1 tablet at bedtime for insomnia and restless legs 09/14 CLONAZEPAM 82664074315 Active Harinder Hernandez DO Active CLONAZEPAM 0.5 MG TABS 1 tab po daily CLONAZEPAM 11147691664 No Longer Active Harinder Hernandez DO Active PREDNISONE 10 MG TAB 1 tablet daily for COPD PREDNISONE 80213284321 Active Harinder Hernandez DO Active PROAIR HFA 108 (90 BASE) MCG/ACT AERS 2 puffs four times a day as needed 2012 ALBUTEROL SULFATE 73046689424 Active Harinder Hernandez DO Active FLOVENT HFA 110 MCG/ACT AERO 2 puffs inhaled b.i.d. FLUTICASONE PROPIONATE HFA 16230959095 Active Kortney Mccain Active ACIPHEX 20 MG TBEC 1 tab po daily RABEPRAZOLE SODIUM 93818134822 Active Kaylah Newberry Active CLONAZEPAM 0.5 MG TABS 1 tab po daily CLONAZEPAM 0.5 MG TABS 295972 CLONAZEPAM Inactive PREDNISONE 20 MG TAB 3 tabs today, then 1 tab twice daily for 3 day, then one daily for three days PREDNISONE 20 MG TAB 700266 PREDNISONE Inactive PREDNISONE 20 MG TAB 2 tabs daily for 4 days, 1 tab daily for 4 days, 1/2 tab daily for 4 days PREDNISONE 20 MG TAB 473471 PREDNISONE Inactive PREDNISONE 10 MG TABS 1 tab po daily PREDNISONE 10 MG TABS 750774 PREDNISONE Inactive TYLENOL EXTRA STRENGTH 500 MG TABS as needed TYLENOL EXTRA STRENGTH 500 MG TABS ACETAMINOPHEN Inactive MUPIROCIN 2 % OINT apply to affected area BID x 14 days MUPIROCIN 2 % OINT 262282 MUPIROCIN Inactive MONTELUKAST SODIUM 10 MG TABS 1 tab po in the evening MONTELUKAST SODIUM 10 MG TABS 20010818 MONTELUKAST SODIUM Inactive BENZONATATE 100 MG CAPS 1 cap po TID PRN BENZONATATE 100 MG CAPS 511088 BENZONATATE Inactive NEURONTIN 300 MG CAP 1 cap by mouth three times daily for restless leg 06/22 NEURONTIN 300 MG CAP 640660 GABAPENTIN Inactive LEVAQUIN 500 MG TAB 1 tablet by mouth daily LEVAQUIN 500 MG TAB 572618 LEVOFLOXACIN Inactive PREDNISONE 20 MG TAB 1 TID x 2 days, then 1 BID x 3 days, then 1 Daily x 3 days, then stop PREDNISONE 20 MG TAB 656347 PREDNISONE Inactive POTASSIUM CHLORIDE ER 10 MEQ CR-TABS take 1 tab po daily POTASSIUM CHLORIDE ER 10 MEQ CR-TABS POTASSIUM CHLORIDE Inactive PREDNISONE 20 MG TAB 1 tab twice daily for 3 day, then one daily for three days PREDNISONE 20 MG TAB 311027 PREDNISONE Inactive TESSALON PERLES 100 MG CAP 1 to 2 tablets by mouth 3 times daily as needed for cough TESSALON PERLES 100 MG CAP 352937 BENZONATATE Inactive POTASSIUM CHLORIDE CR 10 MEQ CPCR 1 capsule by mouth daily 02/14 POTASSIUM CHLORIDE CR 10 MEQ CPCR POTASSIUM CHLORIDE Inactive NITROSTAT 0.4 MG SUBL 1 tab under tongueas needed for chest pain ( may take 3 total, 5 min apart, then call 911) NITROSTAT 0.4 MG SUBL 508487 NITROGLYCERIN Inactive LOVASTATIN 40 MG TABS 1 pill by mouth nightly for cholesterol LOVASTATIN 40 MG TABS 498245 LOVASTATIN Inactive CEFDINIR 300 MG ORAL CAPS take 1 cap po bid x 10 days CEFDINIR 300 MG ORAL CAPS 957344 CEFDINIR Inactive ACEBUTOLOL HCL 200 MG CAPS 1 cap in the morning and 2 caps in the evening ACEBUTOLOL HCL 200 MG CAPS 025200 ACEBUTOLOL HCL Inactive VENTOLIN HFA 108 (90 BASE) MCG/ACT AERS 2 -4 puffs four times a day PRN 2013 VENTOLIN HFA 108 (90 BASE) MCG/ACT AERS ALBUTEROL SULFATE Inactive LEVAQUIN 500 MG ORAL TABS Take 1 tab po daily x 8 days LEVAQUIN 500 MG ORAL TABS 844602 LEVOFLOXACIN Inactive PREDNISONE 20 MG TAB 2 tabs daily for 4 days, 1 tab daily for 4 days, 1/2 tab daily for 4 days PREDNISONE 20 MG TAB 465072 PREDNISONE Inactive LOVASTATIN 40 MG ORAL TABS Take 1 tab po every hs LOVASTATIN 40 MG ORAL TABS 243822 LOVASTATIN Inactive DILAUDID 2 MG ORAL TABS Take 1/2 tab po every 4 hours as needed for pain 2014 DILAUDID 2 MG ORAL TABS 820477 HYDROMORPHONE HCL Inactive AMITRIPTYLINE HCL 25 MG ORAL TABS 1 q hs prn AMITRIPTYLINE HCL 25 MG ORAL TABS 909017 AMITRIPTYLINE HCL Inactive MECLIZINE HCL 25 MG TAB 1 tablet three times daily for 3 days, then 1/2 tab three times daily for 3 days. MECLIZINE HCL 25 MG TAB 044422 MECLIZINE HCL Inactive AMLODIPINE BESYLATE 5 MG ORAL TABS Take 1 tab po daily AMLODIPINE BESYLATE 5 MG ORAL TABS 947145 AMLODIPINE BESYLATE Inactive TOPIRAMATE 25 MG TABS 1 tab po BID TOPIRAMATE 25 MG TABS 152876 TOPIRAMATE Inactive PREDNISONE 20 MG TAB 1 tablet twice daily for 2 days, then 1 tablet once daily for 2 days PREDNISONE 20 MG TAB 994685 PREDNISONE Inactive PREDNISONE 20 MG TAB 1 tab twice daily for 3 day, then one daily for three days PREDNISONE 20 MG TAB 254950 PREDNISONE Inactive NIFEDIPINE ER 30 MG ORAL [id number] 1 daily NIFEDIPINE ER 30 MG ORAL [id number] NIFEDIPINE Inactive AMLODIPINE BESYLATE 5 MG TABS 1 tablet by mouth daily AMLODIPINE BESYLATE 5 MG TABS 786596 AMLODIPINE BESYLATE Inactive LASIX 20 MG TAB 1 tablet by mouth every morning LASIX 20 MG TAB 669643 FUROSEMIDE Inactive POTASSIUM CHLORIDE CR 10 MEQ CPCR 1 capsule BID POTASSIUM CHLORIDE CR 10 MEQ CPCR POTASSIUM CHLORIDE Inactive POTASSIUM CHLORIDE 20 MEQ ORAL PACK 1 tab po q day POTASSIUM CHLORIDE 20 MEQ ORAL PACK 7882945 POTASSIUM CHLORIDE Inactive AZITHROMYCIN 250 MG TABS 2 po qd x 1 day, then 1 po qd x 4 days AZITHROMYCIN 250 MG TABS 7417865 AZITHROMYCIN Inactive AZITHROMYCIN 250 MG TABS 2 po qd x 1 day, then 1 po qd x 4 days AZITHROMYCIN 250 MG TABS 7969044 AZITHROMYCIN Inactive PREDNISONE 20 MG TAB 2 po qd x 5 days PREDNISONE 20 MG TAB 796741 PREDNISONE Inactive Vital Signs Date Name Value [...] Basic Metabolic Panel - Chemistry calcium, serum 8.5 mg/dL 8.5-10.1 urea nitrogen, blood 8 mg/dL 7-18 creatinine, serum 0.82 mg/dL 0.55-1.30 sodium, serum 140 mmol/L 982-589 6229/07/13 potassium, serum 3.2 mmol/L 3.5-5.2 chloride, serum 103 mmol/L 98-107 carbon dioxide, venous blood 26.9 mmol/L 21.0-32.0 blood glucose 93 mg/dL 65-110 calcium, serum 9.2 mg/dL 8.5-10.1 urea nitrogen, blood 13 mg/dL 7-18 creatinine, serum 0.84 mg/dL 0.60-1.30 sodium, serum 140 mmol/L 194-752 0207/08/21 potassium, serum 3.8 mmol/L 3.5-5.2 chloride, serum 105 mmol/L 98-107 carbon dioxide, venous blood 26.9 mmol/L 21.0-32.0 blood glucose 85 mg/dL 65-110 calcium, serum 8.8 mg/dL 8.5-10.1 urea nitrogen, blood 11 mg/dL 7- creatinine, serum 0.95 mg/dL 0.60-1.30 chloride, serum 102 mmol/L 98-107 potassium, serum 3.4 mmol/L 3.5-5.2 sodium, serum 137 mmol/L 680-576 8612/01/03 blood glucose 87 mg/dL 65-110 carbon dioxide, venous blood 29.2 mmol/L 21.0-32.0 Lab Report: CBC, UADIP W/MICRO, AUTO - [...] ... - Chemistry sodium, serum 141 mmol/L 963-419 4563/08/07 carbon dioxide, venous blood 34.0 mmol/L 21.0-32.0 [...] 0-19 Encounters Code Encounter Date Provider Facility CPT-64550 Level 4 Est. Patient 14:45:25 CDT Harinder Cr [facility] CPT-42482 Level 4 Est. Patient 09:15:13 CDT Harinder Cr [facility] CPT-54013 Level 3 Est. Patient 11:51:58 CDT Harinder Cr [facility] CPT-56188 Level 3 Est. Patient 11:30:05 CDT Harinder Cr [facility] CPT-36469 Level 4 Est. Patient 10:19:23 CDT Harinder Cr [facility] CPT-14302 Level 3 Est. Patient 09:58:58 CDT Harinder Cr [facility] CPT-11805 Level 3 Est. Patient 12:37:21 CDT Harinder Cr [facility] CPT-67617 Level 3 Est. Patient 18:37:17 CDT Harinder Cr [facility] CPT-56459 Level 4 Est. Patient 11:15:54 CDT Nettie Rohith [facility] CPT-94757 Level 3 Est. Patient 16:42:24 CDT Harinder Cr [facility] CPT-38253 Level 3 Est. Patient 15:03:36 CDT Harinder Cr [facility] CPT-24313 Level 3 Est. Patient 15:03:20 CDT Harinder Cr [facility] CPT-10012 Level 3 Est. Patient 12:14:34 CDT Harinder Cr [facility] CPT-93684 Level 3 Est. Patient 13:47:15 CDT Harinder Cr [facility] CPT-06460 Level 3 Est. Patient 14:08:24 CDT Harinder Cr [facility] CPT-28876 Level 3 Est. Patient 10:07:15 CDT Harinder Hernandez [facility] CPT-67974 Level 3 Est. Patient 10:06:59 CDT Harinder Hernandez [facility] CPT-11092 Level 3 Est. Patient 15:53:29 CDT Jae Morgan MD [facility] CPT-91406 Level 3 Est. Patient 17:19:04 CDT Harinder Shaye David [facility] CPT-50125 Level 3 Est. Patient 11:13:01 CDT Harinder Cr David [facility] CPT-19247 Level 3 Est. Patient 09:03:58 CDT Harinder Hernandez [facility] CPT-42080 Level 3 Est. Patient 14:46:45 BIG DATA SOFTWARE ENGINEER Harinder Cr David [facility] CPT-87977 Level 3 Est. Patient 09:35:49 BIG DATA SOFTWARE ENGINEER Harinder Cr David [facility] CPT-50948 Level 3 Est. Patient 09:29:37 BIG DATA SOFTWARE ENGINEER Harinder Cr David [facility] CPT-19447 Level 3 Est. Patient 15:51:07 CDT Harinder Cr David [facility] CPT-41870 Level 3 Est. Patient 18:13:13 CDT Harinder Hernandez [facility] CPT-10975 Level 3 Est. Patient 10:44:19 CDT Harinder Hernandez [facility] CPT-45968 Level 4 Est. Patient 10:07:19 BIG DATA SOFTWARE ENGINEER Harinder Cr [facility] CPT-80731 Level 3 Est. Patient 15:59:32 BIG DATA SOFTWARE ENGINEER Harinder Cr [facility] Procedures Code Procedure Name Date Entry Date Standard Description CPT-00927 Abd compl w upright - XRAY USE ONLY 14:48:09 CDT 02/18 CPT-14480 Port a cath flush 13:46:05 CDT CPT-58692 Hip, complete, 2-3 views - XRAY USE ONLY 10:28:40 CDT CPT-21220 BMP - LAB USE ONLY 16:45:09 BIG DATA SOFTWARE ENGINEER CPT-05319 Port a cath flush 12:00:13 BIG DATA SOFTWARE ENGINEER CPT-TCMM Transitional Care Mgmt-Moderate 11:20:16 BIG DATA SOFTWARE ENGINEER CPT-75245 First Vx - Ix admin for Medicare patients 17:35:15 CDT CPT-97393 Fluzone Preservative Free Intramuscular Suspension 17:35 :15 CDT CPT-35287 Microalbumin - LAB USE ONLY 11:52:05 CDT CPT-TCMM Transitional Care Mgmt-Moderate 11:33:57 CDT CPT-03427 No Charge Offi Visit 14:11:29 CDT CPT-78546 Magnesium - LAB USE ONLY 10:45:44 CDT CPT-33403 Lipid - LAB USE ONLY 10:45:44 CDT CPT-23840 CBC - LAB USE ONLY 10:45:44 CDT CPT-19397 Venipuncture Draw Fee 10:45:43 CDT CPT-86484 Venipuncture Draw Fee 18:21:27 CDT CPT-JTINJ Asp/Joint Injection 18:38:04 CDT CPT-59476 Immunization Each Additional Inj 17:38:04 CDT CPT-09618 Immunization Single Admin 17:38:04 CDT CPT-21268 Prevnar 13 17:38:04 CDT CPT-53169 Fluzone Quadrivalent preservative free (>=3yrs.) 17:38: 04 CDT CPT-45170 No Charge Offi Visit 11:14:03 CDT CPT-06675 Chest 2V Frontal and Lat 14:00:18 CDT CPT-OV Office Visit 16:10:28 CDT CPT-JTINJ Asp/Joint Injection 09:03:57 CDT CPT-Cryo Cryotherapy 09:35:49 BIG DATA SOFTWARE ENGINEER CPT-JTINJ Asp/Joint Injection 09:34:45 BIG DATA SOFTWARE ENGINEER CPT-J2930 Solu Medrol 125 mg (Methyl Prednisolone Sodium Succinate) 20:37:27 CDT CPT-96457 Abx/Therapy Injection 20:37:27 CDT CPT-65111 Port a cath flush 08:15:51 CDT CPT-64429 Port a cath flush 09:54:16 CDT CPT-11776 Port a cath flush 09:38:02 CDT CPT-01040 Port a cath flush 11:00:27 BIG DATA SOFTWARE ENGINEER
--- OUTSIDE RECORDS SUMMARY | 2017-12-29 02:37 | XMS REPORT | Clinical Summary ---
Author Author Admin, QIE Organization [facility] Userlike Live Chat Address Unknown Phone Unavailable Allergies, Adverse Reactions, [...] Harinder Hernandez DO DEMEROL Critical Active Harinder Heranndez DO SULFA Critical Active Harinder Hernandez DO [...] elsewhere classified Preventive health care V70.0 Active aHrinder Hernandez DO Routine general medical examination at [...] TABLET 1 tablet by mouth daily SPIRONOLACTONE [id number] No Longer Active Jeri Nieto Active PREDNISONE 20 MG ORAL TABLET 2 tablets by mouth today, then 1 tablet by mouth days 2-3 PREDNISONE 12315928993 No Longer Active Jeri Nieto Active NITROSTAT 0.4 MG SUBLINGUAL TABLET SUBLINGUAL 1 tab SL q5min PRN chest pain NITROGLYCERIN 08488041839 Active Meenu Alejo LPN Active THEOPHYLLINE ER 300 MG ORAL TABLET EXTENDED RELEASE 12 HOUR 1 po BID THEOPHYLLINE 34902035308 Active Kortney Mccain Active POTASSIUM CHLORIDE ER 20 MEQ ORAL TABLET EXTENDED RELEASE 1 po q day POTASSIUM CHLORIDE 46046906096 Active Kortney Mccain Active POTASSIUM CHLORIDE 20 MEQ ORAL PACKET 1 tab po q day POTASSIUM CHLORIDE 22367140977 No Longer Active Kortney Mccain Active POTASSIUM CHLORIDE ER 10 MEQ ORAL CAPSULE EXTENDED RELEASE 1 capsule BID 2016 POTASSIUM CHLORIDE 55683069733 No Longer Active Kortney Mccain Active LASIX 20 MG ORAL TABLET 1 tablet by mouth every morning FUROSEMIDE 24090593659 No Longer Active Kortney Mccain Active FLUOXETINE HCL 10 MG ORAL CAPSULE 1 po qd for depression/anxiety FLUOXETINE HCL 01395915156 Active Meenu Alejo LPN Active VOLTAREN 1 % TRANSDERMAL GEL apply q 6-8 hour to left arm as needed for pain DICLOFENAC SODIUM 62453686160 Active Kortney Mccain Active ALBUTEROL SULFATE (2.5 MG/3ML) 0.083% INHALATION NEBULIZATION SOLUTION 1 vial neb q 4hrs for severe asthma. 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 NIFEDIPINE 42260859845 Active Kortney Mccain Active AMLODIPINE BESYLATE 5 MG ORAL TABLET 1 tablet by mouth daily 2016 AMLODIPINE BESYLATE 16795081854 No Longer Active Harinder Hernandez DO Active TOPAMAX 25 MG ORAL TABLET 1 tab po BID TOPIRAMATE 88558213845 Active Kortney Mccain Active FLUTICASONE PROPIONATE 50 MCG/ACT NASAL SUSPENSION 2 sprays per nostril daily PRN Allergies FLUTICASONE PROPIONATE 40017245293 Active Meenu Alejo LPN Active NIFEDIPINE ER 30 MG ORAL TABLET EXTENDED RELEASE 24 HOUR 1 daily NIFEDIPINE 18983538598 No Longer Active Harinder Hernandez DO Active FLOVENT HFA 110 MCG/ACT INHALATION AEROSOL 2 puffs inhaled b.i.d. FLUTICASONE PROPIONATE HFA 40818197332 Active Harinder Hernandez DO Active EPIPEN 2-BRUNA 0.3 MG/0.3ML INJECTION SOLUTION AUTO-INJECTOR 1 INJ NEEDED EPINEPHRINE 97818588375 Active Meenu Alejo LPN Active PREDNISONE 20 MG ORAL TABLET 1 tab twice daily for 3 day, then one daily for three days PREDNISONE 48460145666 No Longer Active Harinder Hernandez DO Active PREDNISONE 20 MG ORAL TABLET 1 tablet twice daily for 2 days, then 1 tablet once daily for 2 days PREDNISONE 81397426672 No Longer Active Harinder Hernandez DO Active ASMANEX 120 METERED DOSES 220 MCG/INH INHALATION AEROSOL POWDER BREATH ACTIVATED 2 puffs orally twice daily MOMETASONE FUROATE 69933366367 Active Jeri Sosa LPN Active TOPIRAMATE 25 MG ORAL TABLET 1 tab po BID TOPIRAMATE 13997103520 No Longer Active Nettie Newberry APRN Active AMLODIPINE BESYLATE 5 MG ORAL TABLET Take 1 tab po daily AMLODIPINE BESYLATE 03137454546 No Longer Active Nettie Newberry APRN Active MECLIZINE HCL 25 MG ORAL TABLET 1 tablet three times daily for 3 days, then 1/ 2 tab three times daily for 3 days. MECLIZINE HCL 98592303551 No Longer Active Nettie Newberry APRN Active AMITRIPTYLINE HCL 25 MG ORAL TABLET 1 q hs prn AMITRIPTYLINE HCL 68388442753 No Longer Active Nettie Newberry APRN Active DILAUDID 2 MG ORAL TABLET Take 1/2 tab po every 4 hours as needed for pain HYDROMORPHONE HCL 88203476264 No Longer Active Nettie Newberry APRN Active CLOPIDOGREL BISULFATE 75 MG ORAL TABLET 1 tab by mouth once daily CLOPIDOGREL BISULFATE 84566627583 Active Meenu Alejo LPN Active ATORVASTATIN CALCIUM 10 MG ORAL TABLET 1 at bedtime ATORVASTATIN CALCIUM 71911506440 Active Kortney Mccain Active LOVASTATIN 40 MG ORAL TABLET Take 1 tab po every hs LOVASTATIN 16838102737 No Longer Active Harinder Hernandez DO Active PREDNISONE 20 MG ORAL TABLET 2 tabs daily for 4 days, 1 tab daily for 4 days, 1/2 tab daily for 4 days PREDNISONE 32272694119 No Longer Active Harinder Hernandez DO Active LEVAQUIN 500 MG ORAL TABLET Take 1 tab po daily x 8 days LEVOFLOXACIN 93299194589 No Longer Active Harinder Hernandez DO Active VENTOLIN HFA 108 (90 Base) MCG/ACT INHALATION AEROSOL SOLUTION 2 -4 puffs four times a day PRN ALBUTEROL SULFATE 90048618881 No Longer Active Jeri Sosa LPN Active ACEBUTOLOL HCL 200 MG ORAL CAPSULE 1 cap in the morning and 2 caps in the evening ACEBUTOLOL HCL 99301710604 No Longer Active Harinder Hernandez DO Active CEFDINIR 300 MG ORAL CAPSULE take 1 cap po bid x 10 days CEFDINIR 35629342420 No Longer Active Harinder Hernandez DO Active LOVASTATIN 40 MG ORAL TABLET 1 pill by mouth nightly for cholesterol LOVASTATIN 11354098852 No Longer Active Nettie Newberry APRN Active NITROSTAT 0.4 MG SUBLINGUAL TABLET SUBLINGUAL 1 tab under tongueas needed for chest pain ( may take 3 total, 5 min apart, then call 911) NITROGLYCERIN 40800608510 No Longer Active Nettie Newberry APRN Active POTASSIUM CHLORIDE ER 10 MEQ ORAL CAPSULE EXTENDED RELEASE 1 capsule by mouth daily POTASSIUM CHLORIDE 60136046715 No Longer Active Nettie Newberry APRN Active TESSALON PERLES 100 MG ORAL CAPSULE 1 to 2 tablets by mouth 3 times daily as needed for cough BENZONATATE 42231031682 No Longer Active Nettie Newberry APRN Active PREDNISONE 20 MG ORAL TABLET 2 po qd x 5 days PREDNISONE 52729571072 No Longer Active Jae Morgan MD Active AZITHROMYCIN 250 MG ORAL TABLET 2 po qd x 1 day, then 1 po qd x 4 days 12/30 AZITHROMYCIN 18123268126 No Longer Active Jae Morgan MD Active PREDNISONE 20 MG ORAL TABLET 1 tab twice daily for 3 day, then one daily for three days PREDNISONE 72449507426 No Longer Active Jae Morgan MD Active SINGULAIR 10 MG ORAL TABLET 1 pill by mouth every evening for breathing. 2014 MONTELUKAST SODIUM 45622568778 Active Meenu Alejo LPN Active TYLENOL 325 MG ORAL TABLET 3 by mouth q4h as needed ACETAMINOPHEN 65285244498 Active Harinder Hernandez DO Active POTASSIUM CHLORIDE ER 10 MEQ ORAL TABLET EXTENDED RELEASE take 1 tab po daily POTASSIUM CHLORIDE 56438296670 No Longer Active Harinder Hernandez DO Active PREDNISONE 20 MG ORAL TABLET 1 TID x 2 days, then 1 BID x 3 days, then 1 Daily x 3 days, then stop PREDNISONE 03086642334 No Longer Active Jillina Frazellor MCCRAY Active LEVAQUIN 500 MG ORAL TABLET 1 tablet by mouth daily LEVOFLOXACIN 57263870363 No Longer Active Jillina Frazell ENGINEERING ANALYST Active NEURONTIN 300 MG ORAL CAPSULE 1 cap by mouth three times daily for restless leg GABAPENTIN 49948617903 No Longer Active Harinder Hernandez DO Active BENZONATATE 100 MG ORAL CAPSULE 1 cap po TID PRN BENZONATATE 57158964909 No Longer Active Harinder Hernandez DO Active MONTELUKAST SODIUM 10 MG ORAL TABLET 1 tab po in the evening 2014 MONTELUKAST SODIUM 53755808992 No Longer Active Harinder Hernandez DO Active MUPIROCIN 2 % EXTERNAL OINTMENT apply to affected area BID x 14 days MUPIROCIN 68333348798 No Longer Active Harinder Hernandez DO Active TYLENOL EXTRA STRENGTH 500 MG ORAL TABLET as needed ACETAMINOPHEN 08560073445 No Longer Active Harinder Hernandez DO Active PREDNISONE 10 MG ORAL TABLET 1 tab po daily PREDNISONE 41921078000 No Longer Active Harinder Hernandez DO Active PREDNISONE 20 MG ORAL TABLET 2 tabs daily for 4 days, 1 tab daily for 4 days, 1/2 tab daily for 4 days PREDNISONE 50157574404 No Longer Active Harinder Hernandez DO Active AZITHROMYCIN 250 MG ORAL TABLET 2 po qd x 1 day, then 1 po qd x 4 days 04/06 AZITHROMYCIN 82544033204 No Longer Active Harinder Hernandez DO Active PREDNISONE 20 MG ORAL TABLET 3 tabs today, then 1 tab twice daily for 3 day, then one daily for three days PREDNISONE 20834325951 No Longer Active Harinder Hernandez DO Active NIFEDIAC CC 30 MG ORAL TABLET EXTENDED RELEASE 24 HOUR 1 tablet daily for raynaud's syndrome NIFEDIPINE 48386134185 No Longer Active Tawnya Pardo MA Active AMBIEN 10 MG ORAL TABLET 1/2 tab by mouth at bedtime as needed for sleep 2013 ZOLPIDEM TARTRATE 25196738615 Active Meenu Alejo LPN Active CLONAZEPAM 1 MG ORAL TABLET 1 tablet at bedtime for insomnia and restless legs CLONAZEPAM 21061686274 Active Meenu Alejo LPN Active CLONAZEPAM 0.5 MG ORAL TABLET 1 tab po daily CLONAZEPAM 04773169904 No Longer Active Harinder Hernandez DO Active PREDNISONE 10 MG ORAL TABLET 1 tablet daily for COPD PREDNISONE 42391928926 Active Kortney Mccain Active PROAIR HFA 108 (90 Base) MCG/ACT INHALATION AEROSOL SOLUTION 2 puffs four times a day as needed ALBUTEROL SULFATE 67993054126 Active Harinder Hernandez DO Active FLOVENT HFA 110 MCG/ACT INHALATION AEROSOL 2 puffs inhaled b.i.d. FLUTICASONE PROPIONATE HFA 68185322503 Active Kortney Mccain Active ACIPHEX 20 MG ORAL TABLET DELAYED RELEASE 1 tab po daily RABEPRAZOLE SODIUM 23035554055 Active Meenu Alejo LPN Active CLONAZEPAM 0.5 MG ORAL TABLET 1 tab po daily CLONAZEPAM 0.5 MG ORAL TABLET 755684 CLONAZEPAM Inactive PREDNISONE 20 MG ORAL TABLET 3 tabs today, then 1 tab twice daily for 3 day, then one daily for three days PREDNISONE 20 MG ORAL TABLET 312406 PREDNISONE Inactive PREDNISONE 20 MG ORAL TABLET 2 tabs daily for 4 days, 1 tab daily for 4 days, 1/2 tab daily for 4 days PREDNISONE 20 MG ORAL TABLET 971118 PREDNISONE Inactive PREDNISONE 10 MG ORAL TABLET 1 tab po daily PREDNISONE 10 MG ORAL TABLET 807396 PREDNISONE Inactive TYLENOL EXTRA STRENGTH 500 MG ORAL TABLET as needed TYLENOL EXTRA STRENGTH 500 MG ORAL TABLET 944974 ACETAMINOPHEN Inactive MUPIROCIN 2 % EXTERNAL OINTMENT apply to affected area BID x 14 days MUPIROCIN 2 % EXTERNAL OINTMENT 083283 MUPIROCIN Inactive MONTELUKAST SODIUM 10 MG ORAL TABLET 1 tab po in the evening 2014 MONTELUKAST SODIUM 10 MG ORAL TABLET 368739 MONTELUKAST SODIUM Inactive BENZONATATE 100 MG ORAL CAPSULE 1 cap po TID PRN BENZONATATE 100 MG ORAL CAPSULE 488888 BENZONATATE Inactive NEURONTIN 300 MG ORAL CAPSULE 1 cap by mouth three times daily for restless leg NEURONTIN 300 MG ORAL CAPSULE 892122 GABAPENTIN Inactive LEVAQUIN 500 MG ORAL TABLET 1 tablet by mouth daily LEVAQUIN 500 MG ORAL TABLET 211439 LEVOFLOXACIN Inactive PREDNISONE 20 MG ORAL TABLET 1 TID x 2 days, then 1 BID x 3 days, then 1 Daily x 3 days, then stop PREDNISONE 20 MG ORAL TABLET 411952 PREDNISONE Inactive POTASSIUM CHLORIDE ER 10 MEQ ORAL TABLET EXTENDED RELEASE take 1 tab po daily POTASSIUM CHLORIDE ER 10 MEQ ORAL TABLET EXTENDED RELEASE POTASSIUM CHLORIDE Inactive PREDNISONE 20 MG ORAL TABLET 1 tab twice daily for 3 day, then one daily for three days PREDNISONE 20 MG ORAL TABLET 872294 PREDNISONE Inactive TESSALON PERLES 100 MG ORAL CAPSULE 1 to 2 tablets by mouth 3 times daily as needed for cough TESSALON PERLES 100 MG ORAL CAPSULE 323568 BENZONATATE Inactive POTASSIUM CHLORIDE ER 10 MEQ ORAL CAPSULE EXTENDED RELEASE 1 capsule by mouth daily POTASSIUM CHLORIDE ER 10 MEQ ORAL CAPSULE EXTENDED RELEASE POTASSIUM CHLORIDE Inactive NITROSTAT 0.4 MG SUBLINGUAL TABLET SUBLINGUAL 1 tab under tongueas needed for chest pain ( may take 3 total, 5 min apart, then call 911) NITROSTAT 0.4 MG SUBLINGUAL TABLET SUBLINGUAL 608887 NITROGLYCERIN Inactive LOVASTATIN 40 MG ORAL TABLET 1 pill by mouth nightly for cholesterol LOVASTATIN 40 MG ORAL TABLET 267831 LOVASTATIN Inactive CEFDINIR 300 MG ORAL CAPSULE take 1 cap po bid x 10 days CEFDINIR 300 MG ORAL CAPSULE 926373 CEFDINIR Inactive ACEBUTOLOL HCL 200 MG ORAL CAPSULE 1 cap in the morning and 2 caps in the evening ACEBUTOLOL HCL 200 MG ORAL CAPSULE 441775 ACEBUTOLOL HCL Inactive VENTOLIN HFA 108 (90 Base) MCG/ACT INHALATION AEROSOL SOLUTION 2 -4 puffs four times a day PRN VENTOLIN HFA 108 (90 Base) MCG/ ACT INHALATION AEROSOL SOLUTION ALBUTEROL SULFATE Inactive LEVAQUIN 500 MG ORAL TABLET Take 1 tab po daily x 8 days LEVAQUIN 500 MG ORAL TABLET 043394 LEVOFLOXACIN Inactive PREDNISONE 20 MG ORAL TABLET 2 tabs daily for 4 days, 1 tab daily for 4 days, 1/2 tab daily for 4 days PREDNISONE 20 MG ORAL TABLET 706030 PREDNISONE Inactive LOVASTATIN 40 MG ORAL TABLET Take 1 tab po every hs LOVASTATIN 40 MG ORAL TABLET 776506 LOVASTATIN Inactive DILAUDID 2 MG ORAL TABLET Take 1/2 tab po every 4 hours as needed for pain DILAUDID 2 MG ORAL TABLET 096188 HYDROMORPHONE HCL Inactive AMITRIPTYLINE HCL 25 MG ORAL TABLET 1 q hs prn AMITRIPTYLINE HCL 25 MG ORAL TABLET 612332 AMITRIPTYLINE HCL Inactive MECLIZINE HCL 25 MG ORAL TABLET 1 tablet three times daily for 3 days, then 1/ 2 tab three times daily for 3 days. MECLIZINE HCL 25 MG ORAL TABLET 894227 MECLIZINE HCL Inactive AMLODIPINE BESYLATE 5 MG ORAL TABLET Take 1 tab po daily AMLODIPINE BESYLATE 5 MG ORAL TABLET 366075 AMLODIPINE BESYLATE Inactive TOPIRAMATE 25 MG ORAL TABLET 1 tab po BID TOPIRAMATE 25 MG ORAL TABLET 720958 TOPIRAMATE Inactive PREDNISONE 20 MG ORAL TABLET 1 tablet twice daily for 2 days, then 1 tablet once daily for 2 days PREDNISONE 20 MG ORAL TABLET 015083 PREDNISONE Inactive PREDNISONE 20 MG ORAL TABLET 1 tab twice daily for 3 day, then one daily for three days PREDNISONE 20 MG ORAL TABLET 601604 PREDNISONE Inactive NIFEDIPINE ER 30 MG ORAL TABLET EXTENDED RELEASE 24 HOUR 1 daily NIFEDIPINE ER 30 MG ORAL TABLET EXTENDED RELEASE 24 HOUR NIFEDIPINE Inactive AMLODIPINE BESYLATE 5 MG ORAL TABLET 1 tablet by mouth daily 2016 AMLODIPINE BESYLATE 5 MG ORAL TABLET 391904 AMLODIPINE BESYLATE Inactive LASIX 20 MG ORAL TABLET 1 tablet by mouth every morning LASIX 20 MG ORAL TABLET 823837 FUROSEMIDE Inactive POTASSIUM CHLORIDE ER 10 MEQ ORAL CAPSULE EXTENDED RELEASE 1 capsule BID 2016 POTASSIUM CHLORIDE ER 10 MEQ ORAL CAPSULE EXTENDED RELEASE POTASSIUM CHLORIDE Inactive POTASSIUM CHLORIDE 20 MEQ ORAL PACKET 1 tab po q day POTASSIUM CHLORIDE 20 MEQ ORAL PACKET 9229854 POTASSIUM CHLORIDE Inactive PREDNISONE 20 MG ORAL TABLET 2 tablets by mouth today, then 1 tablet by mouth days 2-3 PREDNISONE 20 MG ORAL TABLET 730343 PREDNISONE Inactive SPIRONOLACTONE 25 MG ORAL TABLET 1 tablet by mouth daily SPIRONOLACTONE 25 MG ORAL TABLET 193127 SPIRONOLACTONE Inactive AZITHROMYCIN 250 MG ORAL TABLET 2 po qd x 1 day, then 1 po qd x 4 days 04/06 AZITHROMYCIN 250 MG ORAL TABLET 248965 AZITHROMYCIN Inactive AZITHROMYCIN 250 MG ORAL TABLET 2 po qd x 1 day, then 1 po qd x 4 days 12/30 AZITHROMYCIN 250 MG ORAL TABLET 330772 AZITHROMYCIN Inactive PREDNISONE 20 MG ORAL TABLET 2 po qd x 5 days PREDNISONE 20 MG ORAL TABLET 095756 PREDNISONE Inactive Vital Signs Date Name Value [...] Panel - Chemistry sodium, serum 140 mmol/L 027-447 0138/07/13 potassium, serum 3.2 mmol/L 3.5-5.2 chloride, serum 103 mmol/L 98-107 carbon dioxide, venous blood 26.9 mmol/L 21.0-32.0 blood glucose 93 mg/dL 65-110 calcium, serum 9.2 mg/dL 8.5-10.1 urea nitrogen, blood 13 mg/dL 7-18 creatinine, serum 0.84 mg/dL 0.60-1.30 sodium, serum 140 mmol/L 420-120 7380/08/21 potassium, serum 3.8 mmol/L 3.5-5.2 chloride, serum [...] ... - Chemistry sodium, serum 141 mmol/L 382-832 3867/08/07 carbon dioxide, venous blood 34.0 mmol/L 21.0-32.0 [...] 1.40 mg/dL 0.00-1.00 cholesterol, serum 192 mg/dL 902-356 4668/10/19 triglyceride, serum, fasting 71 mg/dL 30-200 HDL cholesterol, serum 72 mg/dL 32-60 LDL cholesterol, serum 106 mg/dL 0-130 Lab Report: Rapid Strep - Lab Microbial identification kit, rapid strep method Negative Negative Lab Report: THEOPHYLLINE - Toxicology theophylline level, serum 3.1 ug/mL 10.0-20.0 Encounters Code Encounter Date Provider Facility CPT-47648 Level 4 Est. Patient 10:17:51 COMPOUNDING SCALER Harinder [facility] CPT-21665 Level 3 Est. Patient 12:36:15 COMPOUNDING SCALER [facility] CPT-71559 Level 3 Est. Patient 15:14:45 COMPOUNDING SCALER [facility] CPT-95250 Level 4 Est. Patient 14:45:25 CDT [facility] CPT-06325 Level 4 Est. Patient 09:15:13 CDT [facility] CPT-22966 Level 3 Est. Patient 11:51:58 CDT [facility] CPT-45794 Level 3 Est. Patient 11:30:05 CDT [facility] CPT-03086 Level 4 Est. Patient 10:19:23 CDT [facility] CPT-24642 Level 3 Est. Patient 09:58:58 CDT [facility] CPT-70199 Level 3 Est. Patient 12:37:21 CDT [facility] CPT-05318 Level 3 Est. Patient 18:37:17 CDT Harinder Hernandez [facility] CPT-30012 Level 4 Est. Patient 11:15:54 CDT Nettie Newberry APRN [facility] CPT-46318 Level 3 Est. Patient 16:42:24 CDT Harinder Hernandez [facility] CPT-53753 Level 3 Est. Patient 15:03:36 CDT Harinder Hernandez [facility] CPT-97010 Level 3 Est. Patient 15:03:20 CDT Harinder Hernandez [facility] CPT-74221 Level 3 Est. Patient 12:14:34 CDT Harinder Hernandez [facility] CPT-14623 Level 3 Est. Patient 13:47:15 CDT Harinder Hernandez [facility] CPT-60485 Level 3 Est. Patient 14:08:24 CDT Harinder Hernandez [facility] CPT-50387 Level 3 Est. Patient 10:07:15 CDT Harinder Hernandez [facility] CPT-91765 Level 3 Est. Patient 10:06:59 CDT Harinder Hernandez [facility] CPT-52138 Level 3 Est. Patient 15:53:29 CDT Jae Morgan MD [facility] CPT-75181 Level 3 Est. Patient 17:19:04 CDT Harinder Hernandez [facility] CPT-29566 Level 3 Est. Patient 11:13:01 CDT Harinder Shaye Hernandez [facility] CPT-03672 Level 3 Est. Patient 09:03:58 CDT Harinder Hernandez [facility] CPT-22893 Level 3 Est. Patient 14:46:45 COMPOUNDING SCALER Harinder Cr David [facility] CPT-78234 Level 3 Est. Patient 09:35:49 COMPOUNDING SCALER [facility] CPT-73257 Level 3 Est. Patient 09:29:37 COMPOUNDING SCALER Harinder Hernandez [facility] CPT-40295 Level 3 Est. Patient 15:51:07 CDT Harinder Hernandez [facility] CPT-93933 Level 3 Est. Patient 18:13:13 CDT Harinder Hernandez [facility] CPT-84165 Level 3 Est. Patient 10:44:19 CDT Harinder Hernandez [facility] CPT-94225 Level 4 Est. Patient 10:07:19 COMPOUNDING SCALER [facility] CPT-65909 Level 3 Est. Patient 15:59:32 COMPOUNDING SCALER Harinder Hernandez [facility] Procedures Code Procedure Name Date Entry Date Standard Description CPT-G0009 Administration of Pneumococcal Vaccine 10:33:25 COMPOUNDING SCALER CPT-45161 Pneumovax 23 Injection Injectable 25 MCG/0.5ML 10:33:25 COMPOUNDING SCALER CPT-82957 First Vx - Ix admin for Medicare patients 10:33:25 COMPOUNDING SCALER CPT-17743 Fluzone Quadrivalent Intramuscular Suspension 0.5 ML 10: 33:25 COMPOUNDING SCALER CPT-Cryo Cryotherapy 10:17:51 COMPOUNDING SCALER CPT-G0438 Initial Annual Wellness Exam 10:08:59 COMPOUNDING SCALER CPT-41267 Abd compl w upright - XRAY USE ONLY 14:48:09 CDT 02/18 CPT-14388 Port a cath flush 13:46:05 CDT CPT-91004 Hip, complete, 2-3 views - XRAY USE ONLY 10:28:40 CDT CPT-42930 BMP - LAB USE ONLY 16:45:09 COMPOUNDING SCALER CPT-35455 Port a cath flush 12:00:13 COMPOUNDING SCALER CPT-TCMM Transitional Care Mgmt-Moderate 11:20:16 COMPOUNDING SCALER CPT-45537 First Vx - Ix admin for Medicare patients 17:35:15 CDT CPT-14440 Fluzone Preservative Free Intramuscular Suspension 17:35 :15 CDT CPT-58869 Microalbumin - LAB USE ONLY 11:52:05 CDT CPT-TCMM Transitional Care Mgmt-Moderate 11:33:57 CDT CPT-60611 No Charge Offi Visit 14:11:29 CDT CPT-38178 Magnesium - LAB USE ONLY 10:45:44 CDT CPT-45508 Lipid - LAB USE ONLY 10:45:44 CDT CPT-19262 CBC - LAB USE ONLY 10:45:44 CDT CPT-90854 Venipuncture Draw Fee 10:45:43 CDT CPT-19009 Venipuncture Draw Fee 18:21:27 CDT CPT-JTINJ Asp/Joint Injection 18:38:04 CDT CPT-57366 Immunization Each Additional Inj 17:38:04 CDT CPT-44810 Immunization Single Admin 17:38:04 CDT CPT-94997 Prevnar 13 17:38:04 CDT CPT-27918 Fluzone Quadrivalent preservative free (>=3yrs.) 17:38: 04 CDT CPT-59413 No Charge Offi Visit 11:14:03 CDT CPT-67550 Chest 2V Frontal and Lat 14:00:18 CDT CPT-OV Office Visit 16:10:28 CDT CPT-JTINJ Asp/Joint Injection 09:03:57 CDT CPT-Cryo Cryotherapy 09:35:49 COMPOUNDING SCALER CPT-JTINJ Asp/Joint Injection 09:34:45 COMPOUNDING SCALER CPT-J2930 Solu Medrol 125 mg (Methyl Prednisolone Sodium Succinate) 20:37:27 CDT CPT-24146 Abx/Therapy Injection 20:37:27 CDT CPT-69340 Port a cath flush 08:15:51 CDT CPT-82718 Port a cath flush 09:54:16 CDT CPT-28655 Port a cath flush 09:38:02 CDT CPT-04007 Port a cath flush 11:00:27 COMPOUNDING SCALER
--- OUTSIDE RECORDS SUMMARY | 2017-12-29 02:39 | XMS REPORT | Clinical Summary ---
Author Author Admin, QIE Organization [facility] Address Unknown Phone Unavailable Allergies, Adverse Reactions, [...] MG/0.3ML INJ SOAJ 1 INJ NEEDED EPINEPHRINE 49666670100 Active Tawnya Pardo MA Active PREDNISONE 20 MG TAB 1 tab twice daily for 3 day, then one daily for three days PREDNISONE 41040830862 No Longer Active Harinder Hernandez DO Active PREDNISONE 20 MG TAB 1 tablet twice daily for 2 days, then 1 tablet once daily for 2 days PREDNISONE 19732096307 No Longer Active Harinder Hernandez DO Active ASMANEX 120 METERED DOSES 220 MCG/INH INH AEPB 2 puffs orally twice daily MOMETASONE FUROATE 72010022175 Active Jeri Sosa RPT,RMA Active NIFEDIPINE ER 30 MG ORAL [id number] 1 daily NIFEDIPINE 59340921882 Active Tawnya Pardo MA Active TOPIRAMATE 25 MG TABS 1 tab po BID TOPIRAMATE 55633861444 No Longer Active Nettie Newberry APRN Active AMLODIPINE BESYLATE 5 MG ORAL TABS Take 1 tab po daily AMLODIPINE BESYLATE 36489820264 No Longer Active Nettie Newberry APRN Active MECLIZINE HCL 25 MG TAB 1 tablet three times daily for 3 days, then 1/2 tab three times daily for 3 days. MECLIZINE HCL 75199059895 No Longer Active Nettie Newberry APRN Active AMITRIPTYLINE HCL 25 MG ORAL TABS 1 q hs prn AMITRIPTYLINE HCL 48618113368 No Longer Active Nettie Newberry APRN Active DILAUDID 2 MG ORAL TABS Take 1/2 tab po every 4 hours as needed for pain 2014 HYDROMORPHONE HCL 26422468157 No Longer Active Nettie Newberry APRN Active CLOPIDOGREL BISULFATE 75 MG ORAL TABS 1 tab by mouth once daily CLOPIDOGREL BISULFATE 09384039014 Active Tawnya Pardo MA Active ATORVASTATIN CALCIUM 10 MG ORAL TABS 1 at bedtime ATORVASTATIN CALCIUM 30412970194 Active Tawnya Pardo MA Active LOVASTATIN 40 MG ORAL TABS Take 1 tab po every hs LOVASTATIN 83036998844 No Longer Active Harinder Hernandez DO Active PREDNISONE 20 MG TAB 2 tabs daily for 4 days, 1 tab daily for 4 days, 1/2 tab daily for 4 days PREDNISONE 83853947163 No Longer Active Harinder Hernandez DO Active LEVAQUIN 500 MG ORAL TABS Take 1 tab po daily x 8 days LEVOFLOXACIN 26950642809 No Longer Active Harinder Hernandez DO Active VENTOLIN HFA 108 (90 BASE) MCG/ACT AERS 2 -4 puffs four times a day PRN 2013 ALBUTEROL SULFATE 23418316337 No Longer Active Jeri Sosa RPT,RMA Active ACEBUTOLOL HCL 200 MG CAPS 1 cap in the morning and 2 caps in the evening ACEBUTOLOL HCL 82636457176 No Longer Active Harinder Hernandez DO Active CEFDINIR 300 MG ORAL CAPS take 1 cap po bid x 10 days CEFDINIR 93593369789 No Longer Active Harinder Hernandez DO Active LOVASTATIN 40 MG TABS 1 pill by mouth nightly for cholesterol LOVASTATIN 14475883161 No Longer Active Nettie Newberry APRN Active NITROSTAT 0.4 MG SUBL 1 tab under tongueas needed for chest pain ( may take 3 total, 5 min apart, then call 911) NITROGLYCERIN 28769044162 No Longer Active Nettie Newberry APRN Active POTASSIUM CHLORIDE CR 10 MEQ CPCR 1 capsule by mouth daily 02/14 POTASSIUM CHLORIDE 59197843411 No Longer Active Nettie Newberry APRN Active TESSALON PERLES 100 MG CAP 1 to 2 tablets by mouth 3 times daily as needed for cough BENZONATATE 88389247751 No Longer Active Nettie Newberry APRN Active THEOPHYLLINE ER 200 MG ORAL [id number] Take 1 tab every 12 hours THEOPHYLLINE 78911136167 Active Tawnya Pardo MA Active PREDNISONE 20 MG TAB 2 po qd x 5 days PREDNISONE 40794207572 No Longer Active Jae Morgan MD Active AZITHROMYCIN 250 MG TABS 2 po qd x 1 day, then 1 po qd x 4 days AZITHROMYCIN 60058037407 No Longer Active Jae Morgan MD Active PREDNISONE 20 MG TAB 1 tab twice daily for 3 day, then one daily for three days PREDNISONE 48402826053 No Longer Active Jae Morgan MD Active SINGULAIR 10 MG TABS 1 pill by mouth every evening for breathing. MONTELUKAST SODIUM 15061056341 Active Tawnya Pardo MA Active TYLENOL 325 MG TAB 3 by mouth q4h as needed ACETAMINOPHEN 38825248512 Active Harinder Hernandez DO Active POTASSIUM CHLORIDE ER 10 MEQ CR-TABS take 1 tab po daily POTASSIUM CHLORIDE 71116859479 No Longer Active Harinder Hernandez DO Active PREDNISONE 20 MG TAB 1 TID x 2 days, then 1 BID x 3 days, then 1 Daily x 3 days, then stop PREDNISONE 92772361553 No Longer Active Derrickllkvng Montemayor APRN Active LEVAQUIN 500 MG TAB 1 tablet by mouth daily LEVOFLOXACIN 64631659277 No Longer Active Jillkvng Montemayor APRN Active NEURONTIN 300 MG CAP 1 cap by mouth three times daily for restless leg 06/22 GABAPENTIN 86731606011 No Longer Active Harinder Hernandez DO Active BENZONATATE 100 MG CAPS 1 cap po TID PRN BENZONATATE 24523553337 No Longer Active Harinder Hernandez DO Active MONTELUKAST SODIUM 10 MG TABS 1 tab po in the evening MONTELUKAST SODIUM 70955757974 No Longer Active Harinder Hernandez DO Active MUPIROCIN 2 % OINT apply to affected area BID x 14 days MUPIROCIN 09015664921 No Longer Active Harinder Hernandez DO Active TYLENOL EXTRA STRENGTH 500 MG TABS as needed ACETAMINOPHEN 72832786935 No Longer Active Harinder Hernandez DO Active PREDNISONE 10 MG TABS 1 tab po daily PREDNISONE 13069967476 No Longer Active Harinder Hernandez DO Active PREDNISONE 20 MG TAB 2 tabs daily for 4 days, 1 tab daily for 4 days, 1/2 tab daily for 4 days PREDNISONE 92610809826 No Longer Active Harinder Hernandez DO Active AZITHROMYCIN 250 MG TABS 2 po qd x 1 day, then 1 po qd x 4 days AZITHROMYCIN 37840685131 No Longer Active Harinder Hernandez DO Active PREDNISONE 20 MG TAB 3 tabs today, then 1 tab twice daily for 3 day, then one daily for three days PREDNISONE 92938598907 No Longer Active Harinder Hernandez DO Active NIFEDIAC CC 30 MG [id number] 1 tablet daily for raynaud's syndrome NIFEDIPINE 01562305758 No Longer Active Tawnya Pardo MA Active AMBIEN 10 MG TAB 1/2 tab by mouth at bedtime as needed for sleep ZOLPIDEM TARTRATE 81372656787 Active Harinder Hernandez DO Active CLONAZEPAM 1 MG TABS 1 tablet at bedtime for insomnia and restless legs 09/14 CLONAZEPAM 84234186274 Active Kaylah Newberry Active CLONAZEPAM 0.5 MG TABS 1 tab po daily CLONAZEPAM 81511214748 No Longer Active Harinder Hernandez DO Active PREDNISONE 10 MG TAB 1 tablet daily for COPD PREDNISONE 81978624247 Active Tawnya Pardo MA Active PROAIR HFA 108 (90 BASE) MCG/ACT AERS 2 puffs four times a day as needed 2012 ALBUTEROL SULFATE 29571155318 Active Tawnya Pardo MA Active FLOVENT HFA 110 MCG/ACT AERO 2 puffs inhaled b.i.d. FLUTICASONE PROPIONATE HFA 10116794327 Active Tawnya Pardo MA Active ACIPHEX 20 MG TBEC 1 tab po daily RABEPRAZOLE SODIUM 89287861473 Active Tawnya Pardo MA Active CLONAZEPAM 0.5 MG TABS 1 tab po daily CLONAZEPAM 0.5 MG TABS 834731 CLONAZEPAM Inactive PREDNISONE 20 MG TAB 3 tabs today, then 1 tab twice daily for 3 day, then one daily for three days PREDNISONE 20 MG TAB 368897 PREDNISONE Inactive PREDNISONE 20 MG TAB 2 tabs daily for 4 days, 1 tab daily for 4 days, 1/2 tab daily for 4 days PREDNISONE 20 MG TAB 118273 PREDNISONE Inactive PREDNISONE 10 MG TABS 1 tab po daily PREDNISONE 10 MG TABS 057251 PREDNISONE Inactive TYLENOL EXTRA STRENGTH 500 MG TABS as needed TYLENOL EXTRA STRENGTH 500 MG TABS 842872 ACETAMINOPHEN Inactive MUPIROCIN 2 % OINT apply to affected area BID x 14 days MUPIROCIN 2 % OINT 426882 MUPIROCIN Inactive MONTELUKAST SODIUM 10 MG TABS 1 tab po in the evening MONTELUKAST SODIUM 10 MG TABS 056173 MONTELUKAST SODIUM Inactive BENZONATATE 100 MG CAPS 1 cap po TID PRN BENZONATATE 100 MG CAPS 441455 BENZONATATE Inactive NEURONTIN 300 MG CAP 1 cap by mouth three times daily for restless leg 06/22 NEURONTIN 300 MG CAP 859159 GABAPENTIN Inactive LEVAQUIN 500 MG TAB 1 tablet by mouth daily LEVAQUIN 500 MG TAB 366423 LEVOFLOXACIN Inactive PREDNISONE 20 MG TAB 1 TID x 2 days, then 1 BID x 3 days, then 1 Daily x 3 days, then stop PREDNISONE 20 MG TAB 603834 PREDNISONE Inactive POTASSIUM CHLORIDE ER 10 MEQ CR-TABS take 1 tab po daily POTASSIUM CHLORIDE ER 10 MEQ CR-TABS POTASSIUM CHLORIDE Inactive PREDNISONE 20 MG TAB 1 tab twice daily for 3 day, then one daily for three days PREDNISONE 20 MG TAB 486292 PREDNISONE Inactive TESSALON PERLES 100 MG CAP 1 to 2 tablets by mouth 3 times daily as needed for cough TESSALON PERLES 100 MG CAP 681770 BENZONATATE Inactive POTASSIUM CHLORIDE CR 10 MEQ CPCR 1 capsule by mouth daily 02/14 POTASSIUM CHLORIDE CR 10 MEQ CPCR POTASSIUM CHLORIDE Inactive NITROSTAT 0.4 MG SUBL 1 tab under tongueas needed for chest pain ( may take 3 total, 5 min apart, then call 911) NITROSTAT 0.4 MG SUBL 602126 NITROGLYCERIN Inactive LOVASTATIN 40 MG TABS 1 pill by mouth nightly for cholesterol LOVASTATIN 40 MG TABS 837090 LOVASTATIN Inactive CEFDINIR 300 MG ORAL CAPS take 1 cap po bid x 10 days CEFDINIR 300 MG ORAL CAPS 777976 CEFDINIR Inactive ACEBUTOLOL HCL 200 MG CAPS 1 cap in the morning and 2 caps in the evening ACEBUTOLOL HCL 200 MG CAPS 173492 ACEBUTOLOL HCL Inactive VENTOLIN HFA 108 (90 BASE) MCG/ACT AERS 2 -4 puffs four times a day PRN 2013 VENTOLIN HFA 108 (90 BASE) MCG/ACT AERS ALBUTEROL SULFATE Inactive LEVAQUIN 500 MG ORAL TABS Take 1 tab po daily x 8 days LEVAQUIN 500 MG ORAL TABS 756077 LEVOFLOXACIN Inactive PREDNISONE 20 MG TAB 2 tabs daily for 4 days, 1 tab daily for 4 days, 1/2 tab daily for 4 days PREDNISONE 20 MG TAB 743541 PREDNISONE Inactive LOVASTATIN 40 MG ORAL TABS Take 1 tab po every hs LOVASTATIN 40 MG ORAL TABS 743831 LOVASTATIN Inactive DILAUDID 2 MG ORAL TABS Take 1/2 tab po every 4 hours as needed for pain 2014 DILAUDID 2 MG ORAL TABS 572386 HYDROMORPHONE HCL Inactive AMITRIPTYLINE HCL 25 MG ORAL TABS 1 q hs prn AMITRIPTYLINE HCL 25 MG ORAL TABS 583673 AMITRIPTYLINE HCL Inactive MECLIZINE HCL 25 MG TAB 1 tablet three times daily for 3 days, then 1/2 tab three times daily for 3 days. MECLIZINE HCL 25 MG TAB 576417 MECLIZINE HCL Inactive AMLODIPINE BESYLATE 5 MG ORAL TABS Take 1 tab po daily AMLODIPINE BESYLATE 5 MG ORAL TABS 887343 AMLODIPINE BESYLATE Inactive TOPIRAMATE 25 MG TABS 1 tab po BID TOPIRAMATE 25 MG TABS 859812 TOPIRAMATE Inactive PREDNISONE 20 MG TAB 1 tablet twice daily for 2 days, then 1 tablet once daily for 2 days PREDNISONE 20 MG TAB 808498 PREDNISONE Inactive PREDNISONE 20 MG TAB 1 tab twice daily for 3 day, then one daily for three days PREDNISONE 20 MG TAB 634559 PREDNISONE Inactive AZITHROMYCIN 250 MG TABS 2 po qd x 1 day, then 1 po qd x 4 days AZITHROMYCIN 250 MG TABS 6653487 AZITHROMYCIN Inactive AZITHROMYCIN 250 MG TABS 2 po qd x 1 day, then 1 po qd x 4 days AZITHROMYCIN 250 MG TABS 8806894 AZITHROMYCIN Inactive PREDNISONE 20 MG TAB 2 po qd x 5 days PREDNISONE 20 MG TAB 947563 PREDNISONE Inactive Vital Signs Date Name Value [...] Magnesium - Chemistry cholesterol, serum 180 mg/dL 662-393 8090/08/08 triglyceride, serum, fasting 92 mg/dL 30-200 HDL cholesterol, serum 66 mg/dL 32-96 LDL cholesterol, serum 96 mg/dL 0-130 sodium, serum 142 mmol/L 546-239 7610/08/08 carbon dioxide, venous blood 27.4 mmol/L 21.0-32.0 [...] 10.0-20.0 Encounters Code Encounter Date Provider Facility CPT-13284 Level 3 Est. Patient 09:58:58 CDT Harinder Cr [facility] CPT-43754 Level 3 Est. Patient 12:37:21 CDT Harinder Hernandez [facility] CPT-14909 Level 3 Est. Patient 18:37:17 CDT Harinder Cr [facility] CPT-42328 Level 4 Est. Patient 11:15:54 CDT Nettie Newberry [facility] CPT-90370 Level 3 Est. Patient 16:42:24 CDT Harinder Hernandez [facility] CPT-14126 Level 3 Est. Patient 15:03:36 CDT Harinder Hernandez [facility] CPT-70948 Level 3 Est. Patient 15:03:20 CDT Harinder Hernandez [facility] CPT-21667 Level 3 Est. Patient 12:14:34 CDT Harinder Hernandez [facility] CPT-20054 Level 3 Est. Patient 13:47:15 CDT Harinder Hernandez [facility] CPT-04618 Level 3 Est. Patient 14:08:24 CDT Harinder Hernandez [facility] CPT-11406 Level 3 Est. Patient 10:07:15 CDT Harinder Hernandez [facility] CPT-94041 Level 3 Est. Patient 10:06:59 CDT Harinder Hernandez [facility] CPT-28661 Level 3 Est. Patient 15:53:29 CDT Jae Morgan [facility] CPT-28794 Level 3 Est. Patient 17:19:04 CDT Harinder Hernandez [facility] CPT-18263 Level 3 Est. Patient 11:13:01 CDT Harinder Hernandez [facility] CPT-00750 Level 3 Est. Patient 09:03:58 CDT Harinder Hernandez [facility] CPT-42351 Level 3 Est. Patient 14:46:45 [employer] Harinder Hernandez [facility] CPT-60488 Level 3 Est. Patient 09:35:49 [employer] Harinder Shaye Hernandez [facility] CPT-21610 Level 3 Est. Patient 09:29:37 [employer] Harinder Cr David [facility] CPT-65226 Level 3 Est. Patient 15:51:07 CDT Harinder Hernandez [facility] CPT-85682 Level 3 Est. Patient 18:13:13 CDT Harinder Hernandez [facility] CPT-64337 Level 3 Est. Patient 10:44:19 CDT Harinder Hernandez [facility] CPT-33849 Level 4 Est. Patient 10:07:19 [employer] Harinder Cr [facility] CPT-73962 Level 3 Est. Patient 15:59:32 [employer] Harinder Cr [facility] Procedures Code Procedure Name Date Entry Date Standard Description CPT-TCMM Transitional Care Mgmt-Moderate 11:33:57 CDT CPT-66649 No Charge Offi Visit 14:11:29 CDT CPT-27973 Magnesium - LAB USE ONLY 10:45:44 CDT CPT-65651 Lipid - LAB USE ONLY 10:45:44 CDT CPT-23212 CBC - LAB USE ONLY 10:45:44 CDT CPT-20324 Venipuncture Draw Fee 10:45:43 CDT CPT-16415 Venipuncture Draw Fee 18:21:27 CDT CPT-JTINJ Asp/Joint Injection 18:38:04 CDT CPT-81811 Immunization Each Additional Inj 17:38:04 CDT CPT-80463 Immunization Single Admin 17:38:04 CDT CPT-58132 Prevnar 13 17:38:04 CDT CPT-61525 Fluzone Quadrivalent preservative free (>=3yrs.) 17:38: 04 CDT CPT-03478 No Charge Offi Visit 11:14:03 CDT CPT-31293 Chest 2V Frontal and Lat 14:00:18 CDT CPT-OV Office Visit 16:10:28 CDT CPT-JTINJ Asp/Joint Injection 09:03:57 CDT CPT-Cryo Cryotherapy 09:35:49 [employer] CPT-JTINJ Asp/Joint Injection 09:34:45 [employer] CPT-J2930 Solu Medrol 125 mg (Methyl Prednisolone Sodium Succinate) 20:37:27 CDT CPT-36916 Abx/Therapy Injection 20:37:27 CDT CPT-04109 Port a cath flush 08:15:51 CDT CPT-00093 Port a cath flush 09:54:16 CDT CPT-12330 Port a cath flush 09:38:02 CDT CPT-99578 Port a cath flush 11:00:27 [employer]
--- OUTSIDE RECORDS SUMMARY | 2017-12-29 02:40 | XMS REPORT | Clinical Summary ---
Author Author Admin, QIE Organization [facility] Address Unknown Phone Unavailable Allergies, [...] Active Harinder Hernandez DO LATEX Critical Active Hrainder Hernandez DO IBUPROFEN Critical Active Harinder Hernandez [...] Pneumonia , organism unspecified Bacteremia 790.7 Resolved Harnider Cr David DO Unspecified bacteremia Clostridium difficile [...] ] Greater trochanteric bursitis, left 726.5 Resolved Harindre Hernandez DO Enthesopathy of hip region Dysphagia [...] unspecified site Weakness, muscle 728.87 Active Harinder Hernadnez DO Muscle weakness (generalized) CVA with right [...] neb q 4hrs PRN Wheezing ALBUTEROL SULFATE 01803910442 Active Harinder Hernandez DO Active FLOVENT HFA 110 MCG/ACT AERO 2 puffs inhaled b.i.d. FLUTICASONE PROPIONATE HFA 09609077996 Active Harinder Hernandez DO Active POTASSIUM CHLORIDE CR 10 MEQ CPCR 1 capsule by mouth daily POTASSIUM CHLORIDE 26797210951 Active Harinder Hernandez DO Active EPIPEN 2-BRUNA 0.3 MG/0.3ML INJ SOAJ 1 INJ NEEDED EPINEPHRINE 24857504634 Active Tawnya Pardo MA Active PREDNISONE 20 MG TAB 1 tab twice daily for 3 day, then one daily for three days PREDNISONE 13035524819 No Longer Active Harinder Hernandez DO Active PREDNISONE 20 MG TAB 1 tablet twice daily for 2 days, then 1 tablet once daily for 2 days PREDNISONE 11322496621 No Longer Active Harinder Hernandez DO Active ASMANEX 120 METERED DOSES 220 MCG/INH INH AEPB 2 puffs orally twice daily MOMETASONE FUROATE 73727490673 Active Jeri Sosa RPT,RMA Active NIFEDIPINE ER 30 MG ORAL [id number] 1 daily NIFEDIPINE 02888660256 Active Harinder Hernandez DO Active TOPIRAMATE 25 MG TABS 1 tab po BID TOPIRAMATE 71000377421 No Longer Active Nettie Newberry APRN Active AMLODIPINE BESYLATE 5 MG ORAL TABS Take 1 tab po daily AMLODIPINE BESYLATE 76840594043 No Longer Active Nettie Newberry APRN Active MECLIZINE HCL 25 MG TAB 1 tablet three times daily for 3 days, then 1/2 tab three times daily for 3 days. MECLIZINE HCL 70553918113 No Longer Active Nettie Newberry APRN Active AMITRIPTYLINE HCL 25 MG ORAL TABS 1 q hs prn AMITRIPTYLINE HCL 89195107262 No Longer Active Nettie Newberry APRN Active DILAUDID 2 MG ORAL TABS Take 1/2 tab po every 4 hours as needed for pain 2014 HYDROMORPHONE HCL 74990026753 No Longer Active Nettie Newberry APRN Active CLOPIDOGREL BISULFATE 75 MG ORAL TABS 1 tab by mouth once daily CLOPIDOGREL BISULFATE 10972857107 Active Tawnya Pardo MA Active ATORVASTATIN CALCIUM 10 MG ORAL TABS 1 at bedtime ATORVASTATIN CALCIUM 05176216789 Active Tawnya Pardo MA Active LOVASTATIN 40 MG ORAL TABS Take 1 tab po every hs LOVASTATIN 30912132336 No Longer Active Harinder Hernandez DO Active PREDNISONE 20 MG TAB 2 tabs daily for 4 days, 1 tab daily for 4 days, 1/2 tab daily for 4 days PREDNISONE 84823574043 No Longer Active Harinder Hernandez DO Active LEVAQUIN 500 MG ORAL TABS Take 1 tab po daily x 8 days LEVOFLOXACIN 03967546349 No Longer Active Harinder Hernandez DO Active VENTOLIN HFA 108 (90 BASE) MCG/ACT AERS 2 -4 puffs four times a day PRN 2013 ALBUTEROL SULFATE 65314214078 No Longer Active Jeri Sosa RPT,RMA Active ACEBUTOLOL HCL 200 MG CAPS 1 cap in the morning and 2 caps in the evening ACEBUTOLOL HCL 35326889963 No Longer Active Harinder Hernandez DO Active CEFDINIR 300 MG ORAL CAPS take 1 cap po bid x 10 days CEFDINIR 63708665834 No Longer Active Harinder Hernandez DO Active LOVASTATIN 40 MG TABS 1 pill by mouth nightly for cholesterol LOVASTATIN 46972864576 No Longer Active Nettie Newberry APRN Active NITROSTAT 0.4 MG SUBL 1 tab under tongueas needed for chest pain ( may take 3 total, 5 min apart, then call 911) NITROGLYCERIN 66133436866 No Longer Active Nettie Newberry MAHENDRA Active POTASSIUM CHLORIDE CR 10 MEQ CPCR 1 capsule by mouth daily 02/14 POTASSIUM CHLORIDE 55455171985 No Longer Active Nettie Newberry MAHENDRA Active TESSALON PERLES 100 MG CAP 1 to 2 tablets by mouth 3 times daily as needed for cough BENZONATATE 73741055282 No Longer Active Nettie Newberry MAHENDRA Active THEOPHYLLINE ER 200 MG ORAL [id number] Take 1 tab every 12 hours THEOPHYLLINE 13466581083 Active Tawnya Pardo MA Active PREDNISONE 20 MG TAB 2 po qd x 5 days PREDNISONE 94170260093 No Longer Active Jae Morgan MD Active AZITHROMYCIN 250 MG TABS 2 po qd x 1 day, then 1 po qd x 4 days AZITHROMYCIN 97203757856 No Longer Active Jae Morgan MD Active PREDNISONE 20 MG TAB 1 tab twice daily for 3 day, then one daily for three days PREDNISONE 51638573160 No Longer Active Jae Morgan MD Active SINGULAIR 10 MG TABS 1 pill by mouth every evening for breathing. MONTELUKAST SODIUM 39043605264 Active Tawnya Pardo MA Active TYLENOL 325 MG TAB 3 by mouth q4h as needed ACETAMINOPHEN 10500961236 Active Harinder Hernandez DO Active POTASSIUM CHLORIDE ER 10 MEQ CR-TABS take 1 tab po daily POTASSIUM CHLORIDE 11466204571 No Longer Active Harinder Hernandez DO Active PREDNISONE 20 MG TAB 1 TID x 2 days, then 1 BID x 3 days, then 1 Daily x 3 days, then stop PREDNISONE 28818372686 No Longer Active Jillkvng Montemayor APRN Active LEVAQUIN 500 MG TAB 1 tablet by mouth daily LEVOFLOXACIN 26864751501 No Longer Active Jillina Frazell [employer] INSTRUCTOR Active NEURONTIN 300 MG CAP 1 cap by mouth three times daily for restless leg 06/22 GABAPENTIN 71118834590 No Longer Active Harinder Hernandez DO Active BENZONATATE 100 MG CAPS 1 cap po TID PRN BENZONATATE 20598790670 No Longer Active Harinder Hernandez DO Active MONTELUKAST SODIUM 10 MG TABS 1 tab po in the evening MONTELUKAST SODIUM 28947547918 No Longer Active Harinder Hernandez DO Active MUPIROCIN 2 % OINT apply to affected area BID x 14 days MUPIROCIN 80717823351 No Longer Active Harinder Hernandez DO Active TYLENOL EXTRA STRENGTH 500 MG TABS as needed ACETAMINOPHEN 27860819730 No Longer Active Harinder Hernandez DO Active PREDNISONE 10 MG TABS 1 tab po daily PREDNISONE 09975315860 No Longer Active Harinder Hernandez DO Active PREDNISONE 20 MG TAB 2 tabs daily for 4 days, 1 tab daily for 4 days, 1/2 tab daily for 4 days PREDNISONE 57096450822 No Longer Active Harinder Hernandez DO Active AZITHROMYCIN 250 MG TABS 2 po qd x 1 day, then 1 po qd x 4 days AZITHROMYCIN 99504683848 No Longer Active Harinder Hernandez DO Active PREDNISONE 20 MG TAB 3 tabs today, then 1 tab twice daily for 3 day, then one daily for three days PREDNISONE 08384627769 No Longer Active Harinder Hernandez DO Active NIFEDIAC CC 30 MG [id number] 1 tablet daily for raynaud's syndrome NIFEDIPINE 94183475285 No Longer Active Tawnya Pardo MA Active AMBIEN 10 MG TAB 1/2 tab by mouth at bedtime as needed for sleep ZOLPIDEM TARTRATE 20171119333 Active Harinder Hernandez DO Active CLONAZEPAM 1 MG TABS 1 tablet at bedtime for insomnia and restless legs 09/14 CLONAZEPAM 24673646074 Active Harinder Hernandez DO Active CLONAZEPAM 0.5 MG TABS 1 tab po daily CLONAZEPAM 03366872592 No Longer Active Harinder Hernandez DO Active PREDNISONE 10 MG TAB 1 tablet daily for COPD PREDNISONE 46811904461 Active Tawnya Pardo MA Active PROAIR HFA 108 (90 BASE) MCG/ACT AERS 2 puffs four times a day as needed 2012 ALBUTEROL SULFATE 83873941917 Active Tawnya Pardo MA Active FLOVENT HFA 110 MCG/ACT AERO 2 puffs inhaled b.i.d. FLUTICASONE PROPIONATE HFA 46127442027 Active Tawnya Pardo MA Active ACIPHEX 20 MG TBEC 1 tab po daily RABEPRAZOLE SODIUM 69506064435 Active Kaylah Newberry Active CLONAZEPAM 0.5 MG TABS 1 tab po daily CLONAZEPAM 0.5 MG TABS 161353 CLONAZEPAM Inactive PREDNISONE 20 MG TAB 3 tabs today, then 1 tab twice daily for 3 day, then one daily for three days PREDNISONE 20 MG TAB 991046 PREDNISONE Inactive PREDNISONE 20 MG TAB 2 tabs daily for 4 days, 1 tab daily for 4 days, 1/2 tab daily for 4 days PREDNISONE 20 MG TAB 111414 PREDNISONE Inactive PREDNISONE 10 MG TABS 1 tab po daily PREDNISONE 10 MG TABS 006854 PREDNISONE Inactive TYLENOL EXTRA STRENGTH 500 MG TABS as needed TYLENOL EXTRA STRENGTH 500 MG TABS 495943 ACETAMINOPHEN Inactive MUPIROCIN 2 % OINT apply to affected area BID x 14 days MUPIROCIN 2 % OINT 763324 MUPIROCIN Inactive MONTELUKAST SODIUM 10 MG TABS 1 tab po in the evening MONTELUKAST SODIUM 10 MG TABS 20010818 MONTELUKAST SODIUM Inactive BENZONATATE 100 MG CAPS 1 cap po TID PRN BENZONATATE 100 MG CAPS 139675 BENZONATATE Inactive NEURONTIN 300 MG CAP 1 cap by mouth three times daily for restless leg 06/22 NEURONTIN 300 MG CAP 549364 GABAPENTIN Inactive LEVAQUIN 500 MG TAB 1 tablet by mouth daily LEVAQUIN 500 MG TAB 898303 LEVOFLOXACIN Inactive PREDNISONE 20 MG TAB 1 TID x 2 days, then 1 BID x 3 days, then 1 Daily x 3 days, then stop PREDNISONE 20 MG TAB 180592 PREDNISONE Inactive POTASSIUM CHLORIDE ER 10 MEQ CR-TABS take 1 tab po daily POTASSIUM CHLORIDE ER 10 MEQ CR-TABS POTASSIUM CHLORIDE Inactive PREDNISONE 20 MG TAB 1 tab twice daily for 3 day, then one daily for three days PREDNISONE 20 MG TAB 731561 PREDNISONE Inactive TESSALON PERLES 100 MG CAP 1 to 2 tablets by mouth 3 times daily as needed for cough TESSALON PERLES 100 MG CAP 961041 BENZONATATE Inactive POTASSIUM CHLORIDE CR 10 MEQ CPCR 1 capsule by mouth daily 02/14 POTASSIUM CHLORIDE CR 10 MEQ CPCR POTASSIUM CHLORIDE Inactive NITROSTAT 0.4 MG SUBL 1 tab under tongueas needed for chest pain ( may take 3 total, 5 min apart, then call 911) NITROSTAT 0.4 MG SUBL 508481 NITROGLYCERIN Inactive LOVASTATIN 40 MG TABS 1 pill by mouth nightly for cholesterol LOVASTATIN 40 MG TABS 168656 LOVASTATIN Inactive CEFDINIR 300 MG ORAL CAPS take 1 cap po bid x 10 days CEFDINIR 300 MG ORAL CAPS 133189 CEFDINIR Inactive ACEBUTOLOL HCL 200 MG CAPS 1 cap in the morning and 2 caps in the evening ACEBUTOLOL HCL 200 MG CAPS 890683 ACEBUTOLOL HCL Inactive VENTOLIN HFA 108 (90 BASE) MCG/ACT AERS 2 -4 puffs four times a day PRN 2013 VENTOLIN HFA 108 (90 BASE) MCG/ACT AERS ALBUTEROL SULFATE Inactive LEVAQUIN 500 MG ORAL TABS Take 1 tab po daily x 8 days LEVAQUIN 500 MG ORAL TABS 037475 LEVOFLOXACIN Inactive PREDNISONE 20 MG TAB 2 tabs daily for 4 days, 1 tab daily for 4 days, 1/2 tab daily for 4 days PREDNISONE 20 MG TAB 474325 PREDNISONE Inactive LOVASTATIN 40 MG ORAL TABS Take 1 tab po every hs LOVASTATIN 40 MG ORAL TABS 706626 LOVASTATIN Inactive DILAUDID 2 MG ORAL TABS Take 1/2 tab po every 4 hours as needed for pain 2014 DILAUDID 2 MG ORAL TABS 118847 HYDROMORPHONE HCL Inactive AMITRIPTYLINE HCL 25 MG ORAL TABS 1 q hs prn AMITRIPTYLINE HCL 25 MG ORAL TABS 031705 AMITRIPTYLINE HCL Inactive MECLIZINE HCL 25 MG TAB 1 tablet three times daily for 3 days, then 1/2 tab three times daily for 3 days. MECLIZINE HCL 25 MG TAB 272700 MECLIZINE HCL Inactive AMLODIPINE BESYLATE 5 MG ORAL TABS Take 1 tab po daily AMLODIPINE BESYLATE 5 MG ORAL TABS 752302 AMLODIPINE BESYLATE Inactive TOPIRAMATE 25 MG TABS 1 tab po BID TOPIRAMATE 25 MG TABS 356520 TOPIRAMATE Inactive PREDNISONE 20 MG TAB 1 tablet twice daily for 2 days, then 1 tablet once daily for 2 days PREDNISONE 20 MG TAB 195735 PREDNISONE Inactive PREDNISONE 20 MG TAB 1 tab twice daily for 3 day, then one daily for three days PREDNISONE 20 MG TAB 898777 PREDNISONE Inactive AZITHROMYCIN 250 MG TABS 2 po qd x 1 day, then 1 po qd x 4 days AZITHROMYCIN 250 MG TABS 9542015 AZITHROMYCIN Inactive AZITHROMYCIN 250 MG TABS 2 po qd x 1 day, then 1 po qd x 4 days AZITHROMYCIN 250 MG TABS 0294416 AZITHROMYCIN Inactive PREDNISONE 20 MG TAB 2 po qd x 5 days PREDNISONE 20 MG TAB 270200 PREDNISONE Inactive Vital Signs Date Name Value [...] Magnesium - Chemistry cholesterol, serum 180 mg/dL 140-896 5992/08/08 triglyceride, serum, fasting 92 mg/dL 30-200 HDL cholesterol, serum 66 mg/dL 32-96 LDL cholesterol, serum 96 mg/dL 0-130 sodium, serum 142 mmol/L 393-073 5489/08/08 carbon dioxide, venous blood 27.4 mmol/L 21.0-32.0 [...] 10.0-20.0 Encounters Code Encounter Date Provider Facility CPT-12030 Level 3 Est. Patient 09:58:58 CDT Harinder Cr [facility] CPT-63132 Level 3 Est. Patient 12:37:21 CDT Harinder Hernandez [facility] [address] CPT-88514 Level 3 Est. Patient 18:37:17 CDT Harinder Cr [facility] CPT-04519 Level 4 Est. Patient 11:15:54 CDT Nettie Newberry APRN [facility] CPT-97236 Level 3 Est. Patient 16:42:24 CDT Harinder Cr [facility] CPT-22174 Level 3 Est. Patient 15:03:36 CDT Harinder Hernandez [facility] [address] CPT-95006 Level 3 Est. Patient 15:03:20 CDT Harinder Cr [facility] CPT-84916 Level 3 Est. Patient 12:14:34 CDT Harinder Hernandez [facility] CPT-43596 Level 3 Est. Patient 13:47:15 CDT Harinder Cr [facility] CPT-37339 Level 3 Est. Patient 14:08:24 CDT Harinder Hernandez [facility] CPT-00969 Level 3 Est. Patient 10:07:15 CDT Harinder Cr [facility] CPT-06164 Level 3 Est. Patient 10:06:59 CDT Harinder Hernandez [facility] CPT-81779 Level 3 Est. Patient 15:53:[address] [facility] CPT-49382 Level 3 Est. Patient 17:19:04 CDT Harinder Hernandez [facility] CPT-84706 Level 3 Est. Patient 11:13:01 CDT Harinder Hernandez [facility] CPT-43220 Level 3 Est. Patient 09:03:58 CDT Harinder Hernandez [facility] [address] CPT-85370 Level 3 Est. Patient 14:46:45 RUBBER STAMP DIES INSPECTOR Harinder Hernandez [facility] CPT-91870 Level 3 Est. Patient 09:35:49 RUBBER STAMP DIES INSPECTOR Harinder Hernandez [facility] [address] CPT-22007 Level 3 Est. Patient 09:29:37 RUBBER STAMP DIES INSPECTOR Harinder Hernandez [facility] [address] CPT-02182 Level 3 Est. Patient 15:51:07 CDT Harinder Hernandez [facility] CPT-27560 Level 3 Est. Patient 18:13:13 CDT Harinder Hernandez [facility] CPT-32578 Level 3 Est. Patient 10:44:19 CDT Harinder Cr [facility] CPT-34047 Level 4 Est. Patient 10:07:19 RUBBER STAMP DIES INSPECTOR Harinder Cr [facility] CPT-87163 Level 3 Est. Patient 15:59:32 RUBBER STAMP DIES INSPECTOR Harinder Cr [facility] Procedures Code Procedure Name Date Entry Date Standard Description CPT-99342 BMP - LAB USE ONLY 16:45:09 RUBBER [employer]AMP DIES INSPECTOR CPT-61301 Port a cath flush 12:00:13 RUBBER STAMP DIES INSPECTOR CPT-TCMM Transitional Care Mgmt-Moderate 11:20:16 RUBBER STAMP DIES INSPECTOR CPT-61487 First Vx - Ix admin for Medicare patients 17:35:15 CDT CPT-85921 Fluzone Preservative Free Intramuscular Suspension 17:35 :15 CDT CPT-48232 Microalbumin - LAB USE ONLY 11:52:05 CDT CPT-TCMM Transitional Care Mgmt-Moderate 11:33:57 CDT CPT-87791 No Charge Offi Visit 14:11:29 CDT CPT-22002 Magnesium - LAB USE ONLY 10:45:44 CDT CPT-33862 Lipid - LAB USE ONLY 10:45:44 CDT CPT-21569 CBC - LAB USE ONLY 10:45:44 CDT CPT-88358 Venipuncture Draw Fee 10:45:43 CDT CPT-03957 Venipuncture Draw Fee 18:21:27 CDT CPT-JTINJ Asp/Joint Injection 18:38:04 CDT CPT-35518 Immunization Each Additional Inj 17:38:04 CDT CPT-33052 Immunization Single Admin 17:38:04 CDT CPT-17381 Prevnar 13 17:38:04 CDT CPT-13368 Fluzone Quadrivalent preservative free (>=3yrs.) 17:38: 04 CDT CPT-94164 No Charge Offi Visit 11:14:03 CDT CPT-13432 Chest 2V Frontal and Lat 14:00:18 CDT CPT-OV Office Visit 16:10:28 CDT CPT-JTINJ Asp/Joint Injection 09:03:57 CDT CPT-Cryo Cryotherapy 09:35:49 RUBBER STAMP DIES INSPECTOR CPT-JTINJ Asp/Joint Injection 09:34:45 RUBBER STAMP DIES INSPECTOR CPT-J2930 Solu Medrol 125 mg (Methyl Prednisolone Sodium Succinate) 20:37:27 CDT CPT-80847 Abx/Therapy Injection 20:37:27 CDT CPT-76805 Port a cath flush 08:15:51 CDT CPT-05895 Port a cath flush 09:54:16 CDT CPT-98016 Port a cath flush 09:38:02 CDT CPT-19985 Port a cath flush 11:00:27 RUBBER STAMP DIES INSPECTOR
--- OUTSIDE RECORDS SUMMARY | 2017-12-29 02:42 | XMS REPORT | Clinical Summary ---
Author Author Admin, QIE Organization [facility] [employer] Address Unknown Phone Unavailable Allergies, Adverse Reactions, [...] 1 tablet by mouth every morning FUROSEMIDE [id number] Active Kortney Mccain Active POTASSIUM CHLORIDE 20 MEQ ORAL PACK 1 tab po BID POTASSIUM CHLORIDE 63664918850 Active Kortney Mccain Active ALBUTEROL SULFATE 0.083 % NEBU SOLN 1 vial neb q 4hrs for severe asthma. 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 FLUTICASONE PROPIONATE HFA 19581169690 Active Harinder Hernandez DO Active POTASSIUM CHLORIDE CR 10 MEQ CPCR 1 capsule by mouth daily POTASSIUM CHLORIDE 32049179859 Active Harinder Hernandez DO Active EPIPEN 2-BRUNA 0.3 MG/0.3ML INJ SOAJ 1 INJ NEEDED EPINEPHRINE 26966082009 Active Harinder Hernandez DO Active PREDNISONE 20 MG TAB 1 tab twice daily for 3 day, then one daily for three days PREDNISONE 89258546535 No Longer Active Harinder Hernandez DO Active PREDNISONE 20 MG TAB 1 tablet twice daily for 2 days, then 1 tablet once daily for 2 days PREDNISONE 21378399597 No Longer Active Harinder Hernandez DO Active ASMANEX 120 METERED DOSES 220 MCG/INH INH AEPB 2 puffs orally twice daily MOMETASONE FUROATE 90563976326 Active Jeri Sosa RPT,RMA Active TOPIRAMATE 25 MG TABS 1 tab po BID TOPIRAMATE 09291711001 No Longer Active Nettie Newberry APRN Active AMLODIPINE BESYLATE 5 MG ORAL TABS Take 1 tab po daily AMLODIPINE BESYLATE 83549731030 No Longer Active Nettie Newberry APRN Active MECLIZINE HCL 25 MG TAB 1 tablet three times daily for 3 days, then 1/2 tab three times daily for 3 days. MECLIZINE HCL 27820555820 No Longer Active Nettie Newberry APRN Active AMITRIPTYLINE HCL 25 MG ORAL TABS 1 q hs prn AMITRIPTYLINE HCL 60334578124 No Longer Active Nettie Newberry APRN Active DILAUDID 2 MG ORAL TABS Take 1/2 tab po every 4 hours as needed for pain 2014 HYDROMORPHONE HCL 24198287742 No Longer Active Nettie Newberry APRN Active CLOPIDOGREL BISULFATE 75 MG ORAL TABS 1 tab by mouth once daily CLOPIDOGREL BISULFATE 89247516058 Active Harinder Hernandez DO Active ATORVASTATIN CALCIUM 10 MG ORAL TABS 1 at bedtime ATORVASTATIN CALCIUM 38240061453 Active Tawnya Pardo MA Active LOVASTATIN 40 MG ORAL TABS Take 1 tab po every hs LOVASTATIN 30857061612 No Longer Active Harinder Hernandez DO Active PREDNISONE 20 MG TAB 2 tabs daily for 4 days, 1 tab daily for 4 days, 1/2 tab daily for 4 days PREDNISONE 26645688277 No Longer Active Harinder Hernandez DO Active LEVAQUIN 500 MG ORAL TABS Take 1 tab po daily x 8 days LEVOFLOXACIN 04444068012 No Longer Active Harinder Hernandez DO Active VENTOLIN HFA 108 (90 BASE) MCG/ACT AERS 2 -4 puffs four times a day PRN 2013 ALBUTEROL SULFATE 71968506613 No Longer Active Jeri Sosa RPT,RMA Active ACEBUTOLOL HCL 200 MG CAPS 1 cap in the morning and 2 caps in the evening ACEBUTOLOL HCL 57598693971 No Longer Active Harinder Hernandez DO Active CEFDINIR 300 MG ORAL CAPS take 1 cap po bid x 10 days CEFDINIR 68737490054 No Longer Active Harinder Hernandez DO Active LOVASTATIN 40 MG TABS 1 pill by mouth nightly for cholesterol LOVASTATIN 23622099415 No Longer Active Nettie Newberry APRN Active NITROSTAT 0.4 MG SUBL 1 tab under tongueas needed for chest pain ( may take 3 total, 5 min apart, then call 911) NITROGLYCERIN 12803238470 No Longer Active Nettie Newberry APRN Active POTASSIUM CHLORIDE CR 10 MEQ CPCR 1 capsule by mouth daily 02/14 POTASSIUM CHLORIDE 73573034079 No Longer Active Nettie Newberry APRN Active TESSALON PERLES 100 MG CAP 1 to 2 tablets by mouth 3 times daily as needed for cough BENZONATATE 72896525841 No Longer Active Nettie Newberry APRN Active THEOPHYLLINE ER 200 MG ORAL [id number] Take 1 tab every 12 hours THEOPHYLLINE 24257373814 Active Kortney Mccain Active PREDNISONE 20 MG TAB 2 po qd x 5 days PREDNISONE 21333730285 No Longer Active Jae Morgan MD Active AZITHROMYCIN 250 MG TABS 2 po qd x 1 day, then 1 po qd x 4 days AZITHROMYCIN 85765388390 No Longer Active Jae Morgan MD Active PREDNISONE 20 MG TAB 1 tab twice daily for 3 day, then one daily for three days PREDNISONE 20511252530 No Longer Active Jae Morgan MD Active SINGULAIR 10 MG TABS 1 pill by mouth every evening for breathing. 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 SCIENTIST Active LEVAQUIN 500 MG TAB 1 tablet by mouth daily LEVOFLOXACIN 35494738725 No Longer Active Jillina Frazell OPERATIONS RESEARCH SCIENTIST Active NEURONTIN 300 MG CAP 1 cap by mouth three times daily for restless leg 06/22 GABAPENTIN 88990269472 No Longer Active Harinder Hernandez DO Active BENZONATATE 100 MG CAPS 1 cap po TID PRN BENZONATATE 20406519184 No Longer Active Harinder Hernandez DO Active MONTELUKAST SODIUM 10 MG TABS 1 tab po in the evening MONTELUKAST SODIUM 22143390723 No Longer Active Harinder Hernandez DO Active MUPIROCIN 2 % OINT apply to affected area BID x 14 days MUPIROCIN 31740517147 No Longer Active Harinder Hernandez DO Active TYLENOL EXTRA STRENGTH 500 MG TABS as needed ACETAMINOPHEN 01140121665 No Longer Active Harinder W David DO Active PREDNISONE 10 MG TABS 1 tab po daily PREDNISONE 90385039413 No Longer Active Harinder Hernandez DO Active PREDNISONE 20 MG TAB 2 tabs daily for 4 days, 1 tab daily for 4 days, 1/2 tab daily for 4 days PREDNISONE 69698464375 No Longer Active Harinder Hernandez DO Active AZITHROMYCIN 250 MG TABS 2 po qd x 1 day, then 1 po qd x 4 days AZITHROMYCIN 74338400552 No Longer Active Harinder Hernandez DO Active PREDNISONE 20 MG TAB 3 tabs today, then 1 tab twice daily for 3 day, then one daily for three days PREDNISONE 89489054266 No Longer Active Harinder Hernandez DO Active NIFEDIAC CC 30 MG [id number]-RMK 1 tablet daily for raynaud's syndrome NIFEDIPINE 42397914990 No Longer Active Tawnya Pardo MA Active AMBIEN 10 MG TAB 1/2 tab by mouth at bedtime as needed for sleep ZOLPIDEM TARTRATE 58928830693 Active Ciera Pimentel Active CLONAZEPAM 1 MG TABS 1 tablet at bedtime for insomnia and restless legs 09/14 CLONAZEPAM 31206553234 Active Harinder Hernandez DO Active CLONAZEPAM 0.5 MG TABS 1 tab po daily CLONAZEPAM 50653050111 No Longer Active Harinder Hernandez DO Active PREDNISONE 10 MG TAB 1 tablet daily for COPD PREDNISONE 60606655962 Active Ciera Pimentel Active PROAIR HFA 108 (90 BASE) MCG/ACT AERS 2 puffs four times a day as needed 2012 ALBUTEROL SULFATE 26119792883 Active Harinder Hernandez DO Active FLOVENT HFA 110 MCG/ACT AERO 2 puffs inhaled b.i.d. FLUTICASONE PROPIONATE HFA 25493950321 Active Kortney Mccain Active ACIPHEX 20 MG TBEC 1 tab po daily RABEPRAZOLE SODIUM 63537722465 Active Kaylah Newberry Active CLONAZEPAM 0.5 MG TABS 1 tab po daily CLONAZEPAM 0.5 MG TABS 774802 CLONAZEPAM Inactive PREDNISONE 20 MG TAB 3 tabs today, then 1 tab twice daily for 3 day, then one daily for three days PREDNISONE 20 MG TAB 990850 PREDNISONE Inactive PREDNISONE 20 MG TAB 2 tabs daily for 4 days, 1 tab daily for 4 days, 1/2 tab daily for 4 days PREDNISONE 20 MG TAB 304107 PREDNISONE Inactive PREDNISONE 10 MG TABS 1 tab po daily PREDNISONE 10 MG TABS 271929 PREDNISONE Inactive TYLENOL EXTRA STRENGTH 500 MG TABS as needed TYLENOL EXTRA STRENGTH 500 MG TABS 997769 ACETAMINOPHEN Inactive MUPIROCIN 2 % OINT apply to affected area BID x 14 days MUPIROCIN 2 % OINT 470656 MUPIROCIN Inactive MONTELUKAST SODIUM 10 MG TABS 1 tab po in the evening MONTELUKAST SODIUM 10 MG TABS 20010818 MONTELUKAST SODIUM Inactive BENZONATATE 100 MG CAPS 1 cap po TID PRN BENZONATATE 100 MG CAPS 704934 BENZONATATE Inactive NEURONTIN 300 MG CAP 1 cap by mouth three times daily for restless leg 06/22 NEURONTIN 300 MG CAP 200881 GABAPENTIN Inactive LEVAQUIN 500 MG TAB 1 tablet by mouth daily LEVAQUIN 500 MG TAB 201215 LEVOFLOXACIN Inactive PREDNISONE 20 MG TAB 1 TID x 2 days, then 1 BID x 3 days, then 1 Daily x 3 days, then stop PREDNISONE 20 MG TAB 548890 PREDNISONE Inactive POTASSIUM CHLORIDE ER 10 MEQ CR-TABS take 1 tab po daily POTASSIUM CHLORIDE ER 10 MEQ CR-TABS POTASSIUM CHLORIDE Inactive PREDNISONE 20 MG TAB 1 tab twice daily for 3 day, then one daily for three days PREDNISONE 20 MG TAB 720410 PREDNISONE Inactive TESSALON PERLES 100 MG CAP [...] then call 911) NITROSTAT 0.4 MG SUBL 646421 NITROGLYCERIN Inactive LOVASTATIN 40 MG TABS 1 pill by mouth nightly for cholesterol LOVASTATIN 40 MG TABS 286479 LOVASTATIN Inactive CEFDINIR 300 MG ORAL CAPS take 1 cap po bid x 10 days CEFDINIR 300 MG ORAL CAPS 574313 CEFDINIR Inactive ACEBUTOLOL HCL 200 MG CAPS 1 cap in the morning and 2 caps in the evening ACEBUTOLOL HCL 200 MG CAPS 269253 ACEBUTOLOL HCL Inactive VENTOLIN HFA 108 (90 BASE) MCG/ACT AERS 2 -4 puffs four times a day PRN 2013 VENTOLIN HFA 108 (90 BASE) MCG/ACT AERS ALBUTEROL SULFATE Inactive LEVAQUIN 500 MG ORAL TABS Take 1 tab po daily x 8 days LEVAQUIN 500 MG ORAL TABS 983236 LEVOFLOXACIN Inactive PREDNISONE 20 MG TAB 2 tabs daily for 4 days, 1 tab daily for 4 days, 1/2 tab daily for 4 days PREDNISONE 20 MG TAB 858990 PREDNISONE Inactive LOVASTATIN 40 MG ORAL TABS Take 1 tab po every hs LOVASTATIN 40 MG ORAL TABS 346128 LOVASTATIN Inactive DILAUDID 2 MG ORAL TABS Take 1/2 tab po every 4 hours as needed for pain 2014 DILAUDID 2 MG ORAL TABS 935424 HYDROMORPHONE HCL Inactive AMITRIPTYLINE HCL 25 MG ORAL TABS 1 q hs prn AMITRIPTYLINE HCL 25 MG ORAL TABS 011351 AMITRIPTYLINE HCL Inactive MECLIZINE HCL 25 MG TAB 1 tablet three times daily for 3 days, then 1/2 tab three times daily for 3 days. MECLIZINE HCL 25 MG TAB 719340 MECLIZINE HCL Inactive AMLODIPINE BESYLATE 5 MG ORAL TABS Take 1 tab po daily AMLODIPINE BESYLATE 5 MG ORAL TABS 742727 AMLODIPINE BESYLATE Inactive TOPIRAMATE 25 MG TABS 1 tab po BID TOPIRAMATE 25 MG TABS 542916 TOPIRAMATE Inactive PREDNISONE 20 MG TAB 1 tablet twice daily for 2 days, then 1 tablet once daily for 2 days PREDNISONE 20 MG TAB 391047 PREDNISONE Inactive PREDNISONE 20 MG TAB 1 tab twice daily for 3 day, then one daily for three days PREDNISONE 20 MG TAB 597303 PREDNISONE Inactive NIFEDIPINE ER 30 MG ORAL [id number] 1 daily NIFEDIPINE ER 30 MG ORAL [id number] NIFEDIPINE Inactive AMLODIPINE BESYLATE 5 MG TABS 1 tablet by mouth daily AMLODIPINE BESYLATE 5 MG TABS 721597 AMLODIPINE BESYLATE Inactive AZITHROMYCIN 250 MG TABS 2 po qd x 1 day, then 1 po qd x 4 days AZITHROMYCIN 250 MG TABS 3489903 AZITHROMYCIN Inactive AZITHROMYCIN 250 MG TABS 2 po qd x 1 day, then 1 po qd x 4 days AZITHROMYCIN 250 MG TABS 4616761 AZITHROMYCIN Inactive PREDNISONE 20 MG TAB 2 po qd x 5 days PREDNISONE 20 MG TAB 724935 PREDNISONE Inactive Vital Signs Date Name Value [...] Panel - Chemistry sodium, serum 137 mmol/L 542-543 7089/01/03 potassium, serum 3.4 mmol/L 3.5-5.2 chloride, serum [...] Magnesium - Chemistry cholesterol, serum 180 mg/dL 989-368 3992/08/08 triglyceride, serum, fasting 92 mg/dL 30-200 HDL cholesterol, serum 66 mg/dL 32-96 LDL cholesterol, serum 96 mg/dL 0-130 sodium, serum 142 mmol/L 924-434 3636/08/08 carbon dioxide, venous blood 27.4 mmol/L 21.0-32.0 [...] 10.0-20.0 Encounters Code Encounter Date Provider Facility CPT-64682 Level 3 Est. Patient 11:51:[address] [facility] CPT-02704 Level 3 Est. Patient 11:30:05 CDT Harinder Cr [facility] CPT-18305 Level 4 Est. Patient 10:19:23 CDT Harinder Cr [facility] CPT-20766 Level 3 Est. Patient 09:58:58 CDT Harinder Cr [facility] CPT-37466 Level 3 Est. Patient 12:37:21 CDT Harinder Cr [facility] CPT-02140 Level 3 Est. Patient 18:37:17 CDT Harinder Cr [facility] CPT-33621 Level 4 Est. Patient 11:15:54 CDT Nettie Rohith [facility] CPT-45578 Level 3 Est. Patient 16:42:24 CDT Harinder Cr [facility] CPT-17501 Level 3 Est. Patient 15:03:36 CDT Harinder Cr [facility] CPT-48958 Level 3 Est. Patient 15:03:20 CDT Harinder Cr [facility] CPT-94440 Level 3 Est. Patient 12:14:34 CDT Harinder Cr [facility] CPT-81921 Level 3 Est. Patient 13:47:15 CDT Harinder Shyae [facility] CPT-80579 Level 3 Est. Patient 14:08:24 CDT Harinder Cr [facility] CPT-84783 Level 3 Est. Patient 10:07:15 CDT Harinder Cr [facility] CPT-17558 Level 3 Est. Patient 10:06:59 CDT Harinder Cr [facility] CPT-48276 Level 3 Est. Patient 15:53:29 CDT Jae Morgan MD [facility] CPT-51132 Level 3 Est. Patient 17:19:04 CDT Harinder Hernandez [facility] CPT-57944 Level 3 Est. Patient 11:13:01 CDT Harinder Cr [facility] CPT-63110 Level 3 Est. Patient 09:03:58 CDT Harinder Cr [facility] CPT-85489 Level 3 Est. Patient 14:46:45 [employer] Harinder Hernandez [facility] CPT-09010 Level 3 Est. Patient 09:35:49 [employer] Harinder Hernandez [facility] CPT-23482 Level 3 Est. Patient 09:29:37 [employer] Harinder Hernandez [facility] CPT-40085 Level 3 Est. Patient 15:51:07 CDT Harinder Hernandez [facility] CPT-99952 Level 3 Est. Patient 18:13:13 CDT Harinder Cr [facility] CPT-28806 Level 3 Est. Patient 10:44:19 CDT Harinder Cr [facility] CPT-88787 Level 4 Est. Patient 10:07:19 [employer] Harinder Cr [facility] CPT-52675 Level 3 Est. Patient 15:59:32 [employer] Harinder Cr [facility] Procedures Code Procedure Name Date Entry Date Standard Description CPT-21975 Hip, complete, 2-3 views - XRAY USE ONLY 10:28:40 CDT CPT-64792 BMP - LAB USE ONLY 16:45:09 [employer] CPT-29740 Port a cath flush 12:00:13 [employer] CPT-TCMM Transitional Care Mgmt-Moderate 11:20:16 [employer] CPT-97388 First Vx - Ix admin for Medicare patients 17:35:15 CDT CPT-16287 Fluzone Preservative Free Intramuscular Suspension 17:35 :15 CDT CPT-13482 Microalbumin - LAB USE ONLY 11:52:05 CDT CPT-TCMM Transitional Care Mgmt-Moderate 11:33:57 CDT CPT-85235 No Charge Offi Visit 14:11:29 CDT CPT-92293 Magnesium - LAB USE ONLY 10:45:44 CDT CPT-13687 Lipid - LAB USE ONLY 10:45:44 CDT CPT-29415 CBC - LAB USE ONLY 10:45:44 CDT CPT-41795 Venipuncture Draw Fee 10:45:43 CDT CPT-24202 Venipuncture Draw Fee 18:21:27 CDT CPT-JTINJ Asp/Joint Injection 18:38:04 CDT CPT-31223 Immunization Each Additional Inj 17:38:04 CDT CPT-27234 Immunization Single Admin 17:38:04 CDT CPT-57419 Prevnar 13 17:38:04 CDT CPT-17095 Fluzone Quadrivalent preservative free (>=3yrs.) 17:38: 04 CDT CPT-20386 No Charge Offi Visit 11:14:03 CDT CPT-95620 Chest 2V Frontal and Lat 14:00:18 CDT CPT-OV Office Visit 16:10:28 CDT CPT-JTINJ Asp/Joint Injection 09:03:57 CDT CPT-Cryo Cryotherapy 09:35:49 [employer] CPT-JTINJ Asp/Joint Injection 09:34:45 [employer] CPT-J2930 Solu Medrol 125 mg (Methyl Prednisolone Sodium Succinate) 20:37:27 CDT CPT-26787 Abx/Therapy Injection 20:37:27 CDT CPT-76404 Port a cath flush 08:15:51 CDT CPT-60125 Port a cath flush 09:54:16 CDT CPT-26731 Port a cath flush 09:38:02 CDT CPT-96862 Port a cath flush 11:00:27 [employer]
--- OUTSIDE RECORDS SUMMARY | 2017-12-29 02:44 | XMS REPORT | Clinical Summary ---
Author Author Admin, QIE Organization [facility] [address] [employer] Address Unknown Phone Unavailable Allergies, Adverse Reactions, [...] 4hrs PRN Wheezing Dx: J44.1 ALBUTEROL SULFATE 25933693019 Active Kaylah Newberry Active AMLODIPINE BESYLATE 5 MG TABS 1 tablet by mouth daily AMLODIPINE BESYLATE 53249754103 Active Harinder Hernandez DO Active NIFEDIPINE ER 30 MG ORAL [id number] 1 daily NIFEDIPINE 88518902239 No Longer Active Harinder Hernandez DO Active POTASSIUM CHLORIDE 20 MEQ ORAL PACK Take 1 tablet by mouth daily POTASSIUM CHLORIDE 14571806860 Active Ciera Pimentel Active FLOVENT HFA 110 MCG/ACT AERO 2 puffs inhaled b.i.d. FLUTICASONE PROPIONATE HFA 14635345744 Active Harinder Hernandez DO Active POTASSIUM CHLORIDE CR 10 MEQ CPCR 1 capsule by mouth daily POTASSIUM CHLORIDE 08535359525 Active Harinder Hernandez DO Active EPIPEN 2-BRUNA 0.3 MG/0.3ML INJ SOAJ 1 INJ NEEDED EPINEPHRINE 77145977828 Active Harinder Hernandez DO Active PREDNISONE 20 MG TAB 1 tab twice daily for 3 day, then one daily for three days PREDNISONE 44185496946 No Longer Active Harinder Hernandez DO Active PREDNISONE 20 MG TAB 1 tablet twice daily for 2 days, then 1 tablet once daily for 2 days PREDNISONE 09105445279 No Longer Active Harinder Hernandez DO Active ASMANEX 120 METERED DOSES 220 MCG/INH INH AEPB 2 puffs orally twice daily MOMETASONE FUROATE 03388814938 Active Jeri Sosa RPT,RMA Active TOPIRAMATE 25 MG TABS 1 tab po BID TOPIRAMATE 48778923234 No Longer Active Nettie Newberry APRN Active AMLODIPINE BESYLATE 5 MG ORAL TABS Take 1 tab po daily AMLODIPINE BESYLATE 30801359560 No Longer Active Nettie Rohith MAHENDRA Active MECLIZINE HCL 25 MG TAB 1 tablet three times daily for 3 days, then 1/2 tab three times daily for 3 days. MECLIZINE HCL 58436270524 No Longer Active Nettie Newberry APRN Active AMITRIPTYLINE HCL 25 MG ORAL TABS 1 q hs prn AMITRIPTYLINE HCL 48910832067 No Longer Active Nettie Rohith MAHENDRA Active DILAUDID 2 MG ORAL TABS Take 1/2 tab po every 4 hours as needed for pain 2014 HYDROMORPHONE HCL 61263161562 No Longer Active Nettie Newberry APRN Active CLOPIDOGREL BISULFATE 75 MG ORAL TABS 1 tab by mouth once daily CLOPIDOGREL BISULFATE 27497947469 Active Tawnya Pardo MA Active ATORVASTATIN CALCIUM 10 MG ORAL TABS 1 at bedtime ATORVASTATIN CALCIUM 79497948981 Active Tawnya Pardo MA Active LOVASTATIN 40 MG ORAL TABS Take 1 tab po every hs LOVASTATIN 94474854160 No Longer Active Harinder Hernandez DO Active PREDNISONE 20 MG TAB 2 tabs daily for 4 days, 1 tab daily for 4 days, 1/2 tab daily for 4 days PREDNISONE 76445406650 No Longer Active Harinder Hernandez DO Active LEVAQUIN 500 MG ORAL TABS Take 1 tab po daily x 8 days LEVOFLOXACIN 01091633669 No Longer Active Harinder Hernandez DO Active VENTOLIN HFA 108 (90 BASE) MCG/ACT AERS 2 -4 puffs four times a day PRN 2013 ALBUTEROL SULFATE 38097650758 No Longer Active Jeri Sosa RPT,RMA Active ACEBUTOLOL HCL 200 MG CAPS 1 cap in the morning and 2 caps in the evening ACEBUTOLOL HCL 68001925204 No Longer Active Harinder Hernandez DO Active CEFDINIR 300 MG ORAL CAPS take 1 cap po bid x 10 days CEFDINIR 46497241610 No Longer Active Harinder Hernandez DO Active LOVASTATIN 40 MG TABS 1 pill by mouth nightly for cholesterol LOVASTATIN 04372550639 No Longer Active Nettie Newberry APRN Active NITROSTAT 0.4 MG SUBL 1 tab under tongueas needed for chest pain ( may take 3 total, 5 min apart, then call 911) NITROGLYCERIN 45318952419 No Longer Active Nettie Newberry APRN Active POTASSIUM CHLORIDE CR 10 MEQ CPCR 1 capsule by mouth daily 02/14 POTASSIUM CHLORIDE 86928531879 No Longer Active Nettie Newberry APRN Active TESSALON PERLES 100 MG CAP 1 to 2 tablets by mouth 3 times daily as needed for cough BENZONATATE 16573994828 No Longer Active Nettie Newberry APRN Active THEOPHYLLINE ER 200 MG ORAL [id number] Take 1 tab every 12 hours THEOPHYLLINE 87480328726 Active Tawnya Pardo MA Active PREDNISONE 20 MG TAB 2 po qd x 5 days PREDNISONE 99905656133 No Longer Active Jae Morgan MD Active AZITHROMYCIN 250 MG TABS 2 po qd x 1 day, then 1 po qd x 4 days AZITHROMYCIN 56115367418 No Longer Active Jae Morgan MD Active PREDNISONE 20 MG TAB 1 tab twice daily for 3 day, then one daily for three days PREDNISONE 17536774587 No Longer Active Jae Morgan MD Active SINGULAIR 10 MG TABS 1 pill by mouth every evening for breathing. MONTELUKAST SODIUM 43063398326 Active Tawnya Pardo MA Active TYLENOL 325 MG TAB 3 by mouth q4h as needed ACETAMINOPHEN 24179699454 Active Harinder Hernandez DO Active POTASSIUM CHLORIDE ER 10 MEQ CR-TABS take 1 tab po daily POTASSIUM CHLORIDE 92064952072 No Longer Active Harinder Hernandez DO Active PREDNISONE 20 MG TAB 1 TID x 2 days, then 1 BID x 3 days, then 1 Daily x 3 days, then stop PREDNISONE 72331150608 No Longer Active Jillina Frazell ROOF SERVICE TECHNICIAN Active LEVAQUIN 500 MG TAB 1 tablet by mouth daily LEVOFLOXACIN 55040757747 No Longer Active Jillina Frazell ROOF SERVICE TECHNICIAN Active NEURONTIN 300 MG CAP 1 cap by mouth three times daily for restless leg 06/22 GABAPENTIN 22688451150 No Longer Active Harinder Hernandez DO Active BENZONATATE 100 MG CAPS 1 cap po TID PRN BENZONATATE 68030831524 No Longer Active Harinder Hernandez DO Active MONTELUKAST SODIUM 10 MG TABS 1 tab po in the evening MONTELUKAST SODIUM 11154040360 No Longer Active Harinder Hernandez DO Active MUPIROCIN 2 % OINT apply to affected area BID x 14 days MUPIROCIN 69660892592 No Longer Active Harinder Hernandez DO Active TYLENOL EXTRA STRENGTH 500 MG TABS as needed ACETAMINOPHEN 15482165708 No Longer Active Harinder Hernandez DO Active PREDNISONE 10 MG TABS 1 tab po daily PREDNISONE 01275787172 No Longer Active Harinder Hernandez DO Active PREDNISONE 20 MG TAB 2 tabs daily for 4 days, 1 tab daily for 4 days, 1/2 tab daily for 4 days PREDNISONE 21620961099 No Longer Active Harinder Hernandez DO Active AZITHROMYCIN 250 MG TABS 2 po qd x 1 day, then 1 po qd x 4 days AZITHROMYCIN 85638704258 No Longer Active Harinder Hernandez DO Active PREDNISONE 20 MG TAB 3 tabs today, then 1 tab twice daily for 3 day, then one daily for three days PREDNISONE 73934820677 No Longer Active Harinder Hernandez DO Active NIFEDIAC CC 30 MG [id number] 1 tablet daily for raynaud's syndrome NIFEDIPINE 36532986458 No Longer Active Tawnya Pardo MA Active AMBIEN 10 MG TAB 1/2 tab by mouth at bedtime as needed for sleep ZOLPIDEM TARTRATE 67652414844 Active Harinder Hernandez DO Active CLONAZEPAM 1 MG TABS 1 tablet at bedtime for insomnia and restless legs 09/14 CLONAZEPAM 78762939272 Active Harinder Hernandez DO Active CLONAZEPAM 0.5 MG TABS 1 tab po daily CLONAZEPAM 41763421972 No Longer Active Harinder Hernandez DO Active PREDNISONE 10 MG TAB 1 tablet daily for COPD PREDNISONE 19355464001 Active Tawnya Pardo MA Active PROAIR HFA 108 (90 BASE) MCG/ACT AERS 2 puffs four times a day as needed 2012 ALBUTEROL SULFATE 89789467371 Active Tawnya Pardo MA Active FLOVENT HFA 110 MCG/ACT AERO 2 puffs inhaled b.i.d. FLUTICASONE PROPIONATE HFA 79137849736 Active Tawnya Pardo MA Active ACIPHEX 20 MG TBEC 1 tab po daily RABEPRAZOLE SODIUM 29372692975 Active Kaylah Newberry Active CLONAZEPAM 0.5 MG TABS 1 tab po daily CLONAZEPAM 0.5 MG TABS 655181 CLONAZEPAM Inactive PREDNISONE 20 MG TAB 3 tabs today, then 1 tab twice daily for 3 day, then one daily for three days PREDNISONE 20 MG TAB 587826 PREDNISONE Inactive PREDNISONE 20 MG TAB 2 tabs daily for 4 days, 1 tab daily for 4 days, 1/2 tab daily for 4 days PREDNISONE 20 MG TAB 154470 PREDNISONE Inactive PREDNISONE 10 MG TABS 1 tab po daily PREDNISONE 10 MG TABS 553487 PREDNISONE Inactive TYLENOL EXTRA STRENGTH 500 MG TABS as needed TYLENOL EXTRA STRENGTH 500 MG TABS 718304 ACETAMINOPHEN Inactive MUPIROCIN 2 % OINT apply to affected area BID x 14 days MUPIROCIN 2 % OINT 106819 MUPIROCIN Inactive MONTELUKAST SODIUM 10 MG TABS 1 tab po in the evening MONTELUKAST SODIUM 10 MG TABS 20010818 MONTELUKAST SODIUM Inactive BENZONATATE 100 MG CAPS 1 cap po TID PRN BENZONATATE 100 MG CAPS 19730321 BENZONATATE Inactive NEURONTIN 300 MG CAP 1 cap by mouth three times daily for restless leg 06/22 NEURONTIN 300 MG CAP 319702 GABAPENTIN Inactive LEVAQUIN 500 MG TAB 1 tablet by mouth daily LEVAQUIN 500 MG TAB 677270 LEVOFLOXACIN Inactive PREDNISONE 20 MG TAB 1 TID x 2 days, then 1 BID x 3 days, then 1 Daily x 3 days, then stop PREDNISONE 20 MG TAB 245518 PREDNISONE Inactive POTASSIUM CHLORIDE ER 10 MEQ CR-TABS take 1 tab po daily POTASSIUM CHLORIDE ER 10 MEQ CR-TABS POTASSIUM CHLORIDE Inactive PREDNISONE 20 MG TAB 1 tab twice daily for 3 day, then one daily for three days PREDNISONE 20 MG TAB 310642 PREDNISONE Inactive TESSALON PERLES 100 MG CAP 1 to 2 tablets by mouth 3 times daily as needed for cough TESSALON PERLES 100 MG CAP 266137 BENZONATATE Inactive POTASSIUM CHLORIDE CR 10 MEQ CPCR 1 capsule by mouth daily 02/14 POTASSIUM CHLORIDE CR 10 MEQ CPCR POTASSIUM CHLORIDE Inactive NITROSTAT 0.4 MG SUBL 1 tab under tongueas needed for chest pain ( may take 3 total, 5 min apart, then call 911) NITROSTAT 0.4 MG SUBL 136917 NITROGLYCERIN Inactive LOVASTATIN 40 MG TABS 1 pill by mouth nightly for cholesterol LOVASTATIN 40 MG TABS 892719 LOVASTATIN Inactive CEFDINIR 300 MG ORAL CAPS take 1 cap po bid x 10 days CEFDINIR 300 MG ORAL CAPS 20021018 CEFDINIR Inactive ACEBUTOLOL HCL 200 MG CAPS 1 cap in the morning and 2 caps in the evening ACEBUTOLOL HCL 200 MG CAPS 033785 ACEBUTOLOL HCL Inactive VENTOLIN HFA 108 (90 BASE) MCG/ACT AERS 2 -4 puffs four times a day PRN 2013 VENTOLIN HFA 108 (90 BASE) MCG/ACT AERS ALBUTEROL SULFATE Inactive LEVAQUIN 500 MG ORAL TABS Take 1 tab po daily x 8 days LEVAQUIN 500 MG ORAL TABS 666016 LEVOFLOXACIN Inactive PREDNISONE 20 MG TAB 2 tabs daily for 4 days, 1 tab daily for 4 days, 1/2 tab daily for 4 days PREDNISONE 20 MG TAB 299710 PREDNISONE Inactive LOVASTATIN 40 MG ORAL TABS Take 1 tab po every hs LOVASTATIN 40 MG ORAL TABS 330897 LOVASTATIN Inactive DILAUDID 2 MG ORAL TABS Take 1/2 tab po every 4 hours as needed for pain 2014 DILAUDID 2 MG ORAL TABS 992369 HYDROMORPHONE HCL Inactive AMITRIPTYLINE HCL 25 MG ORAL TABS 1 q hs prn AMITRIPTYLINE HCL 25 MG ORAL TABS 667311 AMITRIPTYLINE HCL Inactive MECLIZINE HCL 25 MG TAB 1 tablet three times daily for 3 days, then 1/2 tab three times daily for 3 days. MECLIZINE HCL 25 MG TAB 004207 MECLIZINE HCL Inactive AMLODIPINE BESYLATE 5 MG ORAL TABS Take 1 tab po daily AMLODIPINE BESYLATE 5 MG ORAL TABS 315955 AMLODIPINE BESYLATE Inactive TOPIRAMATE 25 MG TABS 1 tab po BID TOPIRAMATE 25 MG TABS 703606 TOPIRAMATE Inactive PREDNISONE 20 MG TAB 1 tablet twice daily for 2 days, then 1 tablet once daily for 2 days PREDNISONE 20 MG TAB 964767 PREDNISONE Inactive PREDNISONE 20 MG TAB 1 tab twice daily for 3 day, then one daily for three days PREDNISONE 20 MG TAB 110261 PREDNISONE Inactive NIFEDIPINE ER 30 MG ORAL [id number] 1 daily NIFEDIPINE ER 30 MG ORAL [id number] NIFEDIPINE Inactive AZITHROMYCIN 250 MG TABS 2 po qd x 1 day, then 1 po qd x 4 days AZITHROMYCIN 250 MG TABS 3995874 AZITHROMYCIN Inactive AZITHROMYCIN 250 MG TABS 2 po qd x 1 day, then 1 po qd x 4 days AZITHROMYCIN 250 MG TABS 1896830 AZITHROMYCIN Inactive PREDNISONE 20 MG TAB 2 po qd x 5 days PREDNISONE 20 MG TAB 396153 PREDNISONE Inactive Vital Signs Date Name Value [...] Panel - Chemistry sodium, serum 137 mmol/L 124-977 0756/01/03 potassium, serum 3.4 mmol/L 3.5-5.2 chloride, serum [...] Magnesium - Chemistry cholesterol, serum 180 mg/dL 308-496 5865/08/08 triglyceride, serum, fasting 92 mg/dL 30-200 HDL cholesterol, serum 66 mg/dL 32-96 LDL cholesterol, serum 96 mg/dL 0-130 sodium, serum 142 mmol/L 356-954 4311/08/08 carbon dioxide, venous blood 27.4 mmol/L 21.0-32.0 [...] 10.0-20.0 Encounters Code Encounter Date Provider Facility CPT-68166 Level 3 Est. Patient 09:58:58 CDT Harinder Hernandez [facility] CPT-99847 Level 3 Est. Patient 12:37:21 CDT Harinder Hernandez [facility] CPT-43565 Level 3 Est. Patient 18:37:17 CDT Harinder Hernandez [facility] CPT-97320 Level 4 Est. Patient 11:15:54 CDT Nettie Newberry [facility] CPT-23154 Level 3 Est. Patient 16:42:24 CDT Harinder Cr [facility] CPT-61287 Level 3 Est. Patient 15:03:36 CDT Harinder Hernandez [facility] CPT-84215 Level 3 Est. Patient 15:03:20 CDT Harinder Hernandez [facility] CPT-52887 Level 3 Est. Patient 12:14:34 CDT Harinder Hernandez [facility] CPT-78118 Level 3 Est. Patient 13:47:15 CDT Harinder Hernandez [facility] CPT-21956 Level 3 Est. Patient 14:08:24 CDT Harinder Hernandez [facility] CPT-06466 Level 3 Est. Patient 10:07:15 CDT Harinder Hernandez [facility] CPT-96690 Level 3 Est. Patient 10:06:59 CDT Harinder Hernandez [facility] CPT-99677 Level 3 Est. Patient 15:53:29 CDT Jae Morgan MD [facility] CPT-69650 Level 3 Est. Patient 17:19:04 CDT Harinder Hernandez [facility] CPT-74850 Level 3 Est. Patient 11:13:01 CDT Harinder Hernandez [facility] CPT-13087 Level 3 Est. Patient 09:03:58 CDT Harinder Hernandez [facility] CPT-46763 Level 3 Est. Patient 14:46:45 MANAGER BALANCE Harinder Hernandez [facility] CPT-50155 Level 3 Est. Patient 09:35:49 MANAGER BALANCE Harinder Hernandez [facility] CPT-90278 Level 3 Est. Patient 09:29:37 MANAGER BALANCE Harinder Hernandez [facility] CPT-87539 Level 3 Est. Patient 15:51:07 CDT Harinder Hernandez [facility] CPT-93499 Level 3 Est. Patient 18:13:13 CDT Harinder Shaye Hernandez [facility] CPT-02515 Level 3 Est. Patient 10:44:19 CDT Harinder Hernandez [facility] CPT-70256 Level 4 Est. Patient 10:07:19 MANAGER BALANCE Harinder Hernandez [facility] CPT-84283 Level 3 Est. Patient 15:59:32 MANAGER BALANCE Harinder Hernandez [facility] Procedures Code Procedure Name Date Entry Date Standard Description CPT-71877 BMP - LAB USE ONLY 16:45:09 MANAGER BALANCE CPT-26707 Port a cath flush 12:00:13 MANAGER BALANCE CPT-TCMM Transitional Care Mgmt-Moderate 11:20:16 MANAGER BALANCE CPT-60161 First Vx - Ix admin for Medicare patients 17:35:15 CDT CPT-66639 Fluzone Preservative Free Intramuscular Suspension 17:35 :15 CDT CPT-65071 Microalbumin - LAB USE ONLY 11:52:05 CDT CPT-TCMM Transitional Care Mgmt-Moderate 11:33:57 CDT CPT-73768 No Charge Offi Visit 14:11:29 CDT CPT-68859 Magnesium - LAB USE ONLY 10:45:44 CDT CPT-01808 Lipid - LAB USE ONLY 10:45:44 CDT CPT-00239 CBC - LAB USE ONLY 10:45:44 CDT CPT-21528 Venipuncture Draw Fee 10:45:43 CDT CPT-96407 Venipuncture Draw Fee 18:21:27 CDT CPT-JTINJ Asp/Joint Injection 18:38:04 CDT CPT-77261 Immunization Each Additional Inj 17:38:04 CDT CPT-03865 Immunization Single Admin 17:38:04 CDT CPT-15753 Prevnar 13 17:38:04 CDT CPT-64480 Fluzone Quadrivalent preservative free (>=3yrs.) 17:38: 04 CDT CPT-52519 No Charge Offi Visit 11:14:03 CDT CPT-31616 Chest 2V Frontal and Lat 14:00:18 CDT CPT-OV Office Visit 16:10:28 CDT CPT-JTINJ Asp/Joint Injection 09:03:57 CDT CPT-Cryo Cryotherapy 09:35:49 MANAGER BALANCE CPT-JTINJ Asp/Joint Injection 09:34:45 MANAGER BALANCE CPT-J2930 Solu Medrol 125 mg (Methyl Prednisolone Sodium Succinate) 20:37:27 CDT CPT-08667 Abx/Therapy Injection 20:37:27 CDT CPT-36480 Port a cath flush 08:15:51 CDT CPT-35506 Port a cath flush 09:54:16 CDT CPT-71467 Port a cath flush 09:38:02 CDT CPT-62577 Port a cath flush 11:00:27 MANAGER BALANCE
--- OUTSIDE RECORDS SUMMARY | 2017-12-29 02:45 | XMS REPORT | Clinical Summary ---
Author Author Admin, QIE Organization [facility] blabfeed Address Unknown Phone Unavailable Allergies, Adverse Reactions, [...] disease Venous insufficiency 459.81 Active Nettie King MAHEDNRA Venous (peripheral) insufficiency, unspecified Greater trochanteric bursitis, [...] 1 tablet by mouth daily POTASSIUM CHLORIDE 94475026274 Active Ciera Pimentel Active ALBUTEROL SULFATE 0.083 % NEBU SOLN 1 vial neb q 4hrs PRN Wheezing ALBUTEROL SULFATE 75555865425 Active Harinder Hernandez DO Active FLOVENT HFA 110 MCG/ACT AERO 2 puffs inhaled b.i.d. FLUTICASONE PROPIONATE HFA 92183733228 Active Harinder Hernandez DO Active POTASSIUM CHLORIDE CR 10 MEQ CPCR 1 capsule by mouth daily POTASSIUM CHLORIDE 73743618118 Active Harinder Hernandez DO Active EPIPEN 2-BRUNA 0.3 MG/0.3ML INJ SOAJ 1 INJ NEEDED EPINEPHRINE 00251368018 Active Tawnya Pardo MA Active PREDNISONE 20 MG TAB 1 tab twice daily for 3 day, then one daily for three days PREDNISONE 35068114141 No Longer Active Harinder Hernandez DO Active PREDNISONE 20 MG TAB 1 tablet twice daily for 2 days, then 1 tablet once daily for 2 days PREDNISONE 54336558119 No Longer Active Harinder Hernandez DO Active ASMANEX 120 METERED DOSES 220 MCG/INH INH AEPB 2 puffs orally twice daily MOMETASONE FUROATE 93056905235 Active Jeri Sosa RPT,RMA Active NIFEDIPINE ER 30 MG ORAL [id number] 1 daily NIFEDIPINE 04479436160 Active Harinder Hernandez DO Active TOPIRAMATE 25 MG TABS 1 tab po BID TOPIRAMATE 93469533919 No Longer Active Nettie Newberry APRN Active AMLODIPINE BESYLATE 5 MG ORAL TABS Take 1 tab po daily AMLODIPINE BESYLATE 00065275973 No Longer Active Nettie Newberry APRN Active MECLIZINE HCL 25 MG TAB 1 tablet three times daily for 3 days, then 1/2 tab three times daily for 3 days. MECLIZINE HCL 51957870022 No Longer Active Nettieog Newberry APRN Active AMITRIPTYLINE HCL 25 MG ORAL TABS 1 q hs prn AMITRIPTYLINE HCL 19796824148 No Longer Active Nettie Rohith MAHENDRA Active DILAUDID 2 MG ORAL TABS Take 1/2 tab po every 4 hours as needed for pain 2014 HYDROMORPHONE HCL 83465102945 No Longer Active Nettie Newberry APRN Active CLOPIDOGREL BISULFATE 75 MG ORAL TABS 1 tab by mouth once daily CLOPIDOGREL BISULFATE 71091612772 Active Tawnya Pardo MA Active ATORVASTATIN CALCIUM 10 MG ORAL TABS 1 at bedtime ATORVASTATIN CALCIUM 26090959928 Active Tawnya Padro MA Active LOVASTATIN 40 MG ORAL TABS Take 1 tab po every hs LOVASTATIN 98213061608 No Longer Active Harinder Hernandez DO Active PREDNISONE 20 MG TAB 2 tabs daily for 4 days, 1 tab daily for 4 days, 1/2 tab daily for 4 days PREDNISONE 27268730343 No Longer Active Harinder Hernandez DO Active LEVAQUIN 500 MG ORAL TABS Take 1 tab po daily x 8 days LEVOFLOXACIN 74073998380 No Longer Active Harinder Hernandez DO Active VENTOLIN HFA 108 (90 BASE) MCG/ACT AERS 2 -4 puffs four times a day PRN 2013 ALBUTEROL SULFATE 68445650534 No Longer Active Jeri Sosa RPT,RMA Active ACEBUTOLOL HCL 200 MG CAPS 1 cap in the morning and 2 caps in the evening ACEBUTOLOL HCL 11293733033 No Longer Active Harinder Hernandez DO Active CEFDINIR 300 MG ORAL CAPS take 1 cap po bid x 10 days CEFDINIR 62778599569 No Longer Active Harinder Hernandez DO Active LOVASTATIN 40 MG TABS 1 pill by mouth nightly for cholesterol LOVASTATIN 17246296043 No Longer Active Nettie Newberry APRN Active NITROSTAT 0.4 MG SUBL 1 tab under tongueas needed for chest pain ( may take 3 total, 5 min apart, then call 911) NITROGLYCERIN 75988131791 No Longer Active Nettieog Newberry APRN Active POTASSIUM CHLORIDE CR 10 MEQ CPCR 1 capsule by mouth daily 02/14 POTASSIUM CHLORIDE 24822326673 No Longer Active Nettie Newberry APRN Active TESSALON PERLES 100 MG CAP 1 to 2 tablets by mouth 3 times daily as needed for cough BENZONATATE 85111524341 No Longer Active Nettie Newberry APRN Active THEOPHYLLINE ER 200 MG ORAL [id number] Take 1 tab every 12 hours THEOPHYLLINE 91238456179 Active Tawnya Pardo MA Active PREDNISONE 20 MG TAB 2 po qd x 5 days PREDNISONE 40188493290 No Longer Active Jae Morgan MD Active AZITHROMYCIN 250 MG TABS 2 po qd x 1 day, then 1 po qd x 4 days AZITHROMYCIN 00823593889 No Longer Active Jae Morgan MD Active PREDNISONE 20 MG TAB 1 tab twice daily for 3 day, then one daily for three days PREDNISONE 89375516385 No Longer Active Jae Morgan MD Active SINGULAIR 10 MG TABS 1 pill by mouth every evening for breathing. MONTELUKAST SODIUM 75961429053 Active Tawnya Pardo MA Active TYLENOL 325 MG TAB 3 by mouth q4h as needed ACETAMINOPHEN 45039768416 Active Harinder Hernandez DO Active POTASSIUM CHLORIDE ER 10 MEQ CR-TABS take 1 tab po daily POTASSIUM CHLORIDE 40069120906 No Longer Active Harinder Hernandez DO Active PREDNISONE 20 MG TAB 1 TID x 2 days, then 1 BID x 3 days, then 1 Daily x 3 days, then stop PREDNISONE 02496011418 No Longer Active John Montemayor APRN Active LEVAQUIN 500 MG TAB 1 tablet by mouth daily LEVOFLOXACIN 53072599466 No Longer Active John Montemayor APRN Active NEURONTIN 300 MG CAP 1 cap by mouth three times daily for restless leg 06/22 GABAPENTIN 94692203104 No Longer Active Harinder Hernandez DO Active BENZONATATE 100 MG CAPS 1 cap po TID PRN BENZONATATE 10886574863 No Longer Active Harinder Hernandez DO Active MONTELUKAST SODIUM 10 MG TABS 1 tab po in the evening MONTELUKAST SODIUM 70479544931 No Longer Active Harinder Hernandez DO Active MUPIROCIN 2 % OINT apply to affected area BID x 14 days MUPIROCIN 30992563869 No Longer Active Harinder Hernandez DO Active TYLENOL EXTRA STRENGTH 500 MG TABS as needed ACETAMINOPHEN 00661683186 No Longer Active Harinder Hernandez DO Active PREDNISONE 10 MG TABS 1 tab po daily PREDNISONE 26985004052 No Longer Active Harinder Hernandez DO Active PREDNISONE 20 MG TAB 2 tabs daily for 4 days, 1 tab daily for 4 days, 1/2 tab daily for 4 days PREDNISONE 83605543245 No Longer Active Harinder Hernandez DO Active AZITHROMYCIN 250 MG TABS 2 po qd x 1 day, then 1 po qd x 4 days AZITHROMYCIN 15120624006 No Longer Active Harinder Hernandez DO Active PREDNISONE 20 MG TAB 3 tabs today, then 1 tab twice daily for 3 day, then one daily for three days PREDNISONE 97142770598 No Longer Active Harinder Hernandez DO Active NIFEDIAC CC 30 MG [id number] 1 tablet daily for raynaud's syndrome NIFEDIPINE 28822118539 No Longer Active Tawnya Pardo MA Active AMBIEN 10 MG TAB 1/2 tab by mouth at bedtime as needed for sleep ZOLPIDEM TARTRATE 22770604826 Active Harinder Hernandez DO Active CLONAZEPAM 1 MG TABS 1 tablet at bedtime for insomnia and restless legs 09/14 CLONAZEPAM 34851051051 Active Harinder Hernandez DO Active CLONAZEPAM 0.5 MG TABS 1 tab po daily CLONAZEPAM 14903484827 No Longer Active Harinder Hernandez DO Active PREDNISONE 10 MG TAB 1 tablet daily for COPD PREDNISONE 00207031620 Active Tawnya Pardo MA Active PROAIR HFA 108 (90 BASE) MCG/ACT AERS 2 puffs four times a day as needed 2012 ALBUTEROL SULFATE 34197665576 Active Tawnya Pardo MA Active FLOVENT HFA 110 MCG/ACT AERO 2 puffs inhaled b.i.d. FLUTICASONE PROPIONATE HFA 06910179284 Active Tawnya Pardo MA Active ACIPHEX 20 MG TBEC 1 tab po daily RABEPRAZOLE SODIUM 60101278812 Active Kaylah Newberry Active CLONAZEPAM 0.5 MG TABS 1 tab po daily CLONAZEPAM 0.5 MG TABS 874967 CLONAZEPAM Inactive PREDNISONE 20 MG TAB 3 tabs today, then 1 tab twice daily for 3 day, then one daily for three days PREDNISONE 20 MG TAB 488591 PREDNISONE Inactive PREDNISONE 20 MG TAB 2 tabs daily for 4 days, 1 tab daily for 4 days, 1/2 tab daily for 4 days PREDNISONE 20 MG TAB 570765 PREDNISONE Inactive PREDNISONE 10 MG TABS 1 tab po daily PREDNISONE 10 MG TABS 935274 PREDNISONE Inactive TYLENOL EXTRA STRENGTH 500 MG TABS as needed TYLENOL EXTRA STRENGTH 500 MG TABS 168760 ACETAMINOPHEN Inactive MUPIROCIN 2 % OINT apply to affected area BID x 14 days MUPIROCIN 2 % OINT 430435 MUPIROCIN Inactive MONTELUKAST SODIUM 10 MG TABS 1 tab po in the evening MONTELUKAST SODIUM 10 MG TABS 20010818 MONTELUKAST SODIUM Inactive BENZONATATE 100 MG CAPS 1 cap po TID PRN BENZONATATE 100 MG CAPS 320029 BENZONATATE Inactive NEURONTIN 300 MG CAP 1 cap by mouth three times daily for restless leg 06/22 NEURONTIN 300 MG CAP 756061 GABAPENTIN Inactive LEVAQUIN 500 MG TAB 1 tablet by mouth daily LEVAQUIN 500 MG TAB 480790 LEVOFLOXACIN Inactive PREDNISONE 20 MG TAB 1 TID x 2 days, then 1 BID x 3 days, then 1 Daily x 3 days, then stop PREDNISONE 20 MG TAB 309955 PREDNISONE Inactive POTASSIUM CHLORIDE ER 10 MEQ CR-TABS take 1 tab po daily POTASSIUM CHLORIDE ER 10 MEQ CR-TABS POTASSIUM CHLORIDE Inactive PREDNISONE 20 MG TAB 1 tab twice daily for 3 day, then one daily for three days PREDNISONE 20 MG TAB 483464 PREDNISONE Inactive TESSALON PERLES 100 MG CAP 1 to 2 tablets by mouth 3 times daily as needed for cough TESSALON PERLES 100 MG CAP 901425 BENZONATATE Inactive POTASSIUM CHLORIDE CR 10 MEQ CPCR 1 capsule by mouth daily 02/14 POTASSIUM CHLORIDE CR 10 MEQ CPCR POTASSIUM CHLORIDE Inactive NITROSTAT 0.4 MG SUBL 1 tab under tongueas needed for chest pain ( may take 3 total, 5 min apart, then call 911) NITROSTAT 0.4 MG SUBL 775572 NITROGLYCERIN Inactive LOVASTATIN 40 MG TABS 1 pill by mouth nightly for cholesterol LOVASTATIN 40 MG TABS 774418 LOVASTATIN Inactive CEFDINIR 300 MG ORAL CAPS take 1 cap po bid x 10 days CEFDINIR 300 MG ORAL CAPS 933772 CEFDINIR Inactive ACEBUTOLOL HCL 200 MG CAPS 1 cap in the morning and 2 caps in the evening ACEBUTOLOL HCL 200 MG CAPS 729611 ACEBUTOLOL HCL Inactive VENTOLIN HFA 108 (90 BASE) MCG/ACT AERS 2 -4 puffs four times a day PRN 2013 VENTOLIN HFA 108 (90 BASE) MCG/ACT AERS ALBUTEROL SULFATE Inactive LEVAQUIN 500 MG ORAL TABS Take 1 tab po daily x 8 days LEVAQUIN 500 MG ORAL TABS 512062 LEVOFLOXACIN Inactive PREDNISONE 20 MG TAB 2 tabs daily for 4 days, 1 tab daily for 4 days, 1/2 tab daily for 4 days PREDNISONE 20 MG TAB 029995 PREDNISONE Inactive LOVASTATIN 40 MG ORAL TABS Take 1 tab po every hs LOVASTATIN 40 MG ORAL TABS 141068 LOVASTATIN Inactive DILAUDID 2 MG ORAL TABS Take 1/2 tab po every 4 hours as needed for pain 2014 DILAUDID 2 MG ORAL TABS 419229 HYDROMORPHONE HCL Inactive AMITRIPTYLINE HCL 25 MG ORAL TABS 1 q hs prn AMITRIPTYLINE HCL 25 MG ORAL TABS 455428 AMITRIPTYLINE HCL Inactive MECLIZINE HCL 25 MG TAB 1 tablet three times daily for 3 days, then 1/2 tab three times daily for 3 days. MECLIZINE HCL 25 MG TAB 945122 MECLIZINE HCL Inactive AMLODIPINE BESYLATE 5 MG ORAL TABS Take 1 tab po daily AMLODIPINE BESYLATE 5 MG ORAL TABS 832143 AMLODIPINE BESYLATE Inactive TOPIRAMATE 25 MG TABS 1 tab po BID TOPIRAMATE 25 MG TABS 922900 TOPIRAMATE Inactive PREDNISONE 20 MG TAB 1 tablet twice daily for 2 days, then 1 tablet once daily for 2 days PREDNISONE 20 MG TAB 702137 PREDNISONE Inactive PREDNISONE 20 MG TAB 1 tab twice daily for 3 day, then one daily for three days PREDNISONE 20 MG TAB 884536 PREDNISONE Inactive AZITHROMYCIN 250 MG TABS 2 po qd x 1 day, then 1 po qd x 4 days AZITHROMYCIN 250 MG TABS 7035942 AZITHROMYCIN Inactive AZITHROMYCIN 250 MG TABS 2 po qd x 1 day, then 1 po qd x 4 days AZITHROMYCIN 250 MG TABS 3522164 AZITHROMYCIN Inactive PREDNISONE 20 MG TAB 2 po qd x 5 days PREDNISONE 20 MG TAB 476975 PREDNISONE Inactive Vital Signs Date Name Value [...] Panel - Chemistry sodium, serum 137 mmol/L 754-527 7355/01/03 potassium, serum 3.4 mmol/L 3.5-5.2 chloride, serum [...] Magnesium - Chemistry cholesterol, serum 180 mg/dL 027-798 0568/08/08 triglyceride, serum, fasting 92 mg/dL 30-200 HDL cholesterol, serum 66 mg/dL 32-96 LDL cholesterol, serum 96 mg/dL 0-130 sodium, serum 142 mmol/L 294-762 2921/08/08 carbon dioxide, venous blood 27.4 mmol/L 21.0-32.0 [...] 10.0-20.0 Encounters Code Encounter Date Provider Facility CPT-01215 Level 3 Est. Patient 09:58:58 CDT Harinder Cr [facility] CPT-26016 Level 3 Est. Patient 12:37:21 CDT Harinder Cr [facility] CPT-41011 Level 3 Est. Patient 18:37:17 CDT Harinder Cr [facility] CPT-21771 Level 4 Est. Patient 11:15:[address] [facility] CPT-50158 Level 3 Est. Patient 16:42:24 CDT Harinder Cr [facility] CPT-58861 Level 3 Est. Patient 15:03:36 CDT Harinder Cr [facility] CPT-37020 Level 3 Est. Patient 15:03:20 CDT Harinder Cr [facility] CPT-18993 Level 3 Est. Patient 12:14:34 CDT Harinder Cr [facility] CPT-61336 Level 3 Est. Patient 13:47:15 CDT Harinder Hernandez [facility] CPT-83964 Level 3 Est. Patient 14:08:24 CDT Harinder Hernandez [facility] CPT-17018 Level 3 Est. Patient 10:07:15 CDT Harinder Hernandez [facility] CPT-91771 Level 3 Est. Patient 10:06:59 CDT Harinder Hernandez [facility] CPT-60130 Level 3 Est. Patient 15:53:29 CDT Jae Morgan [facility] CPT-38140 Level 3 Est. Patient 17:19:04 CDT Harinder Hernandez [facility] CPT-48121 Level 3 Est. Patient 11:13:01 CDT Harinder Hernandez [facility] CPT-32963 Level 3 Est. Patient 09:03:58 CDT Harinder Hernandez [facility] CPT-99613 Level 3 Est. Patient 14:46:45 BEAUTY ARTIST Harinder Hernandez [facility] CPT-42858 Level 3 Est. Patient 09:35:49 BEAUTY ARTIST Harinder Shaye Hernandez [facility] CPT-31700 Level 3 Est. Patient 09:29:37 BEAUTY ARTIST Harinder Cr David [facility] CPT-45036 Level 3 Est. Patient 15:51:07 CDT Harinder Hernandez [facility] CPT-63653 Level 3 Est. Patient 18:13:13 CDT Harinder Cr David [facility] CPT-87025 Level 3 Est. Patient 10:44:19 CDT Harinder Hernandez [facility] CPT-03678 Level 4 Est. Patient 10:07:19 BEAUTY ARTIST Harinder Hernandez [facility] CPT-56894 Level 3 Est. Patient 15:59:32 BEAUTY ARTIST Harinder Hernandez [facility] Procedures Code Procedure Name Date Entry Date Standard Description CPT-98813 BMP - LAB USE ONLY 16:45:09 BEAUTY ARTIST CPT-99778 Port a cath flush 12:00:13 BEAUTY ARTIST CPT-TCMM Transitional Care Mgmt-Moderate 11:20:16 BEAUTY ARTIST CPT-93466 First Vx - Ix admin for Medicare patients 17:35:15 CDT CPT-83379 Fluzone Preservative Free Intramuscular Suspension 17:35 :15 CDT CPT-78841 Microalbumin - LAB USE ONLY 11:52:05 CDT CPT-TCMM Transitional Care Mgmt-Moderate 11:33:57 CDT CPT-91242 No Charge Offi Visit 14:11:29 CDT CPT-39471 Magnesium - LAB USE ONLY 10:45:44 CDT CPT-32867 Lipid - LAB USE ONLY 10:45:44 CDT CPT-32438 CBC - LAB USE ONLY 10:45:44 CDT CPT-87999 Venipuncture Draw Fee 10:45:43 CDT CPT-75362 Venipuncture Draw Fee 18:21:27 CDT CPT-JTINJ Asp/Joint Injection 18:38:04 CDT CPT-49203 Immunization Each Additional Inj 17:38:04 CDT CPT-58039 Immunization Single Admin 17:38:04 CDT CPT-35231 Prevnar 13 17:38:04 CDT CPT-26757 Fluzone Quadrivalent preservative free (>=3yrs.) 17:38: 04 CDT CPT-87609 No Charge Offi Visit 11:14:03 CDT CPT-89833 Chest 2V Frontal and Lat 14:00:18 CDT CPT-OV Office Visit 16:10:28 CDT CPT-JTINJ Asp/Joint Injection 09:03:57 CDT CPT-Cryo Cryotherapy 09:35:49 BEAUTY ARTIST CPT-JTINJ Asp/Joint Injection 09:34:45 BEAUTY ARTIST CPT-J2930 Solu Medrol 125 mg (Methyl Prednisolone Sodium Succinate) 20:37:27 CDT CPT-04254 Abx/Therapy Injection 20:37:27 CDT CPT-58885 Port a cath flush 08:15:51 CDT CPT-82648 Port a cath flush 09:54:16 CDT CPT-87999 Port a cath flush 09:38:02 CDT CPT-70338 Port a cath flush 11:00:27 BEAUTY ARTIST
--- OUTSIDE RECORDS SUMMARY | 2017-12-29 02:47 | XMS REPORT | Clinical Summary ---
Author Author Admin, QIE Organization [facility] Address Unknown Phone Unavailable Allergies, Adverse [...] Raynaud's syndrome Edema leg 782.3 Active Harinder Cr David DO Edema Tendonitis 726.90 Active Harinder Shaye David DO Enthesopathy of unspecified site Anxiety depression 300.4 Active Harinder Cr David DO Dysthymic disorder Abdominal pain 789.00 Active Harinder Cr David DO Abdominal pain, unspecified site Right leg pain 729.5 Active Harinder Shaye Hernandez DO Pain in limb Encounter for fitting and adjustment of vascular catheter ICD-V58.81 Inactive Harinder Shaye David DO Back pain, lumbar ICD-724.2 Inactive Harinder Shaye David DO Insomnia ICD-780.52 Inactive Harinder W David DO Sacroiliitis, right ICD-720.2 Inactive Harinder W David DO Biceps tendinitis, left ICD-726.12 Inactive Harinder Shaye David DO Breast mass, right ICD-611.72 Inactive Harinder W David DO Benign positional vertigo ICD-386.11 Inactive Harinder W David DO Colon cancer screening ICD-V76.51 Inactive Harinder W David DO Screening for malignant neoplasm, colon ICD-V76.51 Inactive Harinder W David DO Pneumonia ICD-486 Inactive Harinder W David DO Bacteremia ICD-790.7 Inactive Harinder Hernandez 10/02 Clostridium difficile colitis ICD-008.45 Inactive Harinder Shaye David PINO Abdominal pain, right lower quadrant ICD-789.03 Inactive Harinder Hernandez Needs vaccination for influenza ICD-V04.81 Inactive Harinder Shaye David PINO Need for prophylactic vaccination against streptococcus pneumoniae ( Pneumococcus) ICD-V03.82 Inactive Harinder Cr David PINO Greater trochanteric bursitis, left ICD-726.5 Inactive Harinder Hernandez DO Nausea and vomiting ICD-787.01 Inactive Jae Morgan MD Diarrhea ICD-787.91 Inactive Jae Morgan MD Medication List Medication Instructions Start Date Stop Date Generic Name NDC Status Provider Patient Instruction POTASSIUM CHLORIDE ER 20 MEQ ORAL CR-TABS 1 po q day POTASSIUM CHLORIDE 69450008210 Active Kortney Mccain Active POTASSIUM CHLORIDE 20 MEQ ORAL PACK 1 tab po q day POTASSIUM CHLORIDE 10183151582 No Longer Active Kortney Mccain Active POTASSIUM CHLORIDE CR 10 MEQ CPCR 1 capsule BID POTASSIUM CHLORIDE 04294827827 No Longer Active Kortney Mccain Active LASIX 20 MG TAB 1 tablet by mouth every morning FUROSEMIDE 56270524474 No Longer Active Kortney Mccain Active SPIRONOLACTONE 25 MG TAB 1 tablet by mouth daily SPIRONOLACTONE 20331594288 Active Kortney Mccain Active FLUOXETINE HCL 10 MG ORAL CAPS 1 po qd for depression/anxiety FLUOXETINE HCL 88018601747 Active Harinder Hernandez DO Active VOLTAREN 1 % GEL apply q 6-8 hour to left arm as needed for pain DICLOFENAC SODIUM 81607052888 Active Kortney Mccain Active ALBUTEROL SULFATE 0.083 % NEBU SOLN 1 vial neb q 4hrs for severe asthma. imperative to have this agent ALBUTEROL SULFATE 46907173552 Active Ciera Pimentel Active NIFEDIAC CC 30 MG [id number] 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 NIFEDIPINE 34772099151 Active Harinder Hernandez DO Active AMLODIPINE BESYLATE 5 MG TABS 1 tablet by mouth daily AMLODIPINE BESYLATE 56997814393 No Longer Active Harinder Hernandez DO Active TOPAMAX 25 MG ORAL TABS 1 tab po BID TOPIRAMATE 49720972384 Active Kortney Mccain Active FLUTICASONE PROPIONATE 50 MCG/ACT SUSP 2 sprays per nostril daily PRN Allergies FLUTICASONE PROPIONATE 44907209552 Active Kortney Mccain Active NIFEDIPINE ER 30 MG ORAL [id number] 1 daily NIFEDIPINE 38743504768 No Longer Active Harinder Hernandez DO Active FLOVENT HFA 110 MCG/ACT AERO 2 puffs inhaled b.i.d. FLUTICASONE PROPIONATE HFA 09583093262 Active Harinder Hernandez DO Active EPIPEN 2-BRUNA 0.3 MG/0.3ML INJ SOAJ 1 INJ NEEDED EPINEPHRINE 24881854226 Active Harinder Hernandez DO Active PREDNISONE 20 MG TAB 1 tab twice daily for 3 day, then one daily for three days PREDNISONE 69852876409 No Longer Active Harinder Hernandez DO Active PREDNISONE 20 MG TAB 1 tablet twice daily for 2 days, then 1 tablet once daily for 2 days PREDNISONE 41257057348 No Longer Active Harinder Hernandez DO Active ASMANEX 120 METERED DOSES 220 MCG/INH INH AEPB 2 puffs orally twice daily MOMETASONE FUROATE 66788700122 Active Jeri Sosa LPN Active TOPIRAMATE 25 MG TABS 1 tab po BID TOPIRAMATE 58965941404 No Longer Active Nettie Newberry APRN Active AMLODIPINE BESYLATE 5 MG ORAL TABS Take 1 tab po daily AMLODIPINE BESYLATE 19847010883 No Longer Active Nettieog Newberry APRN Active MECLIZINE HCL 25 MG TAB 1 tablet three times daily for 3 days, then 1/2 tab three times daily for 3 days. MECLIZINE HCL 46333674422 No Longer Active Nettie King MAHENDRA Active AMITRIPTYLINE HCL 25 MG ORAL TABS 1 q hs prn AMITRIPTYLINE HCL 70364656527 No Longer Active Nettie Newberry MAHENDRA Active DILAUDID 2 MG ORAL TABS Take 1/2 tab po every 4 hours as needed for pain 2014 HYDROMORPHONE HCL 01226024454 No Longer Active Nettie King MAHENDRA Active CLOPIDOGREL BISULFATE 75 MG ORAL TABS 1 tab by mouth once daily CLOPIDOGREL BISULFATE 85203070810 Active Harinder Heranndez DO Active ATORVASTATIN CALCIUM 10 MG ORAL TABS 1 at bedtime ATORVASTATIN CALCIUM 06572375559 Active Kortney Mccain Active LOVASTATIN 40 MG ORAL TABS Take 1 tab po every hs LOVASTATIN 18163243028 No Longer Active Harinder Hernandez DO Active PREDNISONE 20 MG TAB 2 tabs daily for 4 days, 1 tab daily for 4 days, 1/2 tab daily for 4 days PREDNISONE 83882483688 No Longer Active Harinder Hernandez DO Active LEVAQUIN 500 MG ORAL TABS Take 1 tab po daily x 8 days LEVOFLOXACIN 69700871592 No Longer Active Harinder Hernandez DO Active VENTOLIN HFA 108 (90 BASE) MCG/ACT AERS 2 -4 puffs four times a day PRN 2013 ALBUTEROL SULFATE 29640727099 No Longer Active Jeri Sosa LPN Active ACEBUTOLOL HCL 200 MG CAPS 1 cap in the morning and 2 caps in the evening ACEBUTOLOL HCL 76936822107 No Longer Active Harinder Hernandez DO Active CEFDINIR 300 MG ORAL CAPS take 1 cap po bid x 10 days CEFDINIR 17337289087 No Longer Active Harinder Hernandez DO Active LOVASTATIN 40 MG TABS 1 pill by mouth nightly for cholesterol LOVASTATIN 88718019692 No Longer Active Nettie Newberry MAHENDRA Active NITROSTAT 0.4 MG SUBL 1 tab under tongueas needed for chest pain ( may take 3 total, 5 min apart, then call 911) NITROGLYCERIN 76069780330 No Longer Active Nettie Newberry APRN Active POTASSIUM CHLORIDE CR 10 MEQ CPCR 1 capsule by mouth daily 02/14 POTASSIUM CHLORIDE 83430642518 No Longer Active Nettie King MAHENDRA Active TESSALON PERLES 100 MG CAP 1 to 2 tablets by mouth 3 times daily as needed for cough BENZONATATE 71923394346 No Longer Active Nettie Newberry APRN Active THEOPHYLLINE ER 200 MG ORAL [id number] Take 1 tab every 12 hours THEOPHYLLINE 96452632724 Active Kortney Mccain Active PREDNISONE 20 MG TAB 2 po qd x 5 days PREDNISONE 82757600681 No Longer Active Jae Morgan MD Active AZITHROMYCIN 250 MG TABS 2 po qd x 1 day, then 1 po qd x 4 days AZITHROMYCIN 85654373717 No Longer Active Jae Morgan MD Active PREDNISONE 20 MG TAB 1 tab twice daily for 3 day, then one daily for three days PREDNISONE 90620146691 No Longer Active Jae Morgan MD Active SINGULAIR 10 MG TABS 1 pill by mouth every evening for breathing. MONTELUKAST SODIUM 04183917585 Active Kortney Mcacin Active TYLENOL 325 MG TAB 3 by mouth q4h as needed ACETAMINOPHEN 97004432615 Active Harinder Hernandez DO Active POTASSIUM CHLORIDE ER 10 MEQ CR-TABS take 1 tab po daily POTASSIUM CHLORIDE 02584713192 No Longer Active Harinder Hernandez DO Active PREDNISONE 20 MG TAB 1 TID x 2 days, then 1 BID x 3 days, then 1 Daily x 3 days, then stop PREDNISONE 62339317571 No Longer Active John Montemayor APRN Active LEVAQUIN 500 MG TAB 1 tablet by mouth daily LEVOFLOXACIN 54667344944 No Longer Active Jillina Frazell [employer] Active NEURONTIN 300 MG CAP 1 cap by mouth three times daily for restless leg 06/22 GABAPENTIN 68858240972 No Longer Active Harinder Hernandez DO Active BENZONATATE 100 MG CAPS 1 cap po TID PRN BENZONATATE 42449207567 No Longer Active Harinder Hernandez DO Active MONTELUKAST SODIUM 10 MG TABS 1 tab po in the evening MONTELUKAST SODIUM 67407914590 No Longer Active Harinder Hernandez DO Active MUPIROCIN 2 % OINT apply to affected area BID x 14 days MUPIROCIN 95438408823 No Longer Active Harinder Hernandez DO Active TYLENOL EXTRA STRENGTH 500 MG TABS as needed ACETAMINOPHEN 82879635087 No Longer Active Harinder Hernandez DO Active PREDNISONE 10 MG TABS 1 tab po daily PREDNISONE 44510414891 No Longer Active Harinder Hernandez DO Active PREDNISONE 20 MG TAB 2 tabs daily for 4 days, 1 tab daily for 4 days, 1/2 tab daily for 4 days PREDNISONE 90040139694 No Longer Active Harinder Hernandez DO Active AZITHROMYCIN 250 MG TABS 2 po qd x 1 day, then 1 po qd x 4 days AZITHROMYCIN 50328993816 No Longer Active Harinder Hernandez DO Active PREDNISONE 20 MG TAB 3 tabs today, then 1 tab twice daily for 3 day, then one daily for three days PREDNISONE 53230563195 No Longer Active Harinder Hernandez DO Active NIFEDIAC CC 30 MG [id number] 1 tablet daily for raynaud's syndrome NIFEDIPINE 82776854505 No Longer Active Tawnya Pardo MA Active AMBIEN 10 MG TAB 1/2 tab by mouth at bedtime as needed for sleep ZOLPIDEM TARTRATE 56419517864 Active Kortney Mccain Active CLONAZEPAM 1 MG TABS 1 tablet at bedtime for insomnia and restless legs 09/14 CLONAZEPAM 89625628512 Active Harinder Hernandez DO Active CLONAZEPAM 0.5 MG TABS 1 tab po daily CLONAZEPAM 54741059920 No Longer Active Harinder Hernandez DO Active PREDNISONE 10 MG TAB 1 tablet daily for COPD PREDNISONE 47069556982 Active Harinder Hernandez DO Active PROAIR HFA 108 (90 BASE) MCG/ACT AERS 2 puffs four times a day as needed 2012 ALBUTEROL SULFATE 14769533490 Active Harinder Hernandez DO Active FLOVENT HFA 110 MCG/ACT AERO 2 puffs inhaled b.i.d. FLUTICASONE PROPIONATE HFA 26019022491 Active Kortney Mccain Active ACIPHEX 20 MG TBEC 1 tab po daily RABEPRAZOLE SODIUM 66728794584 Active Kaylah Newberry Active CLONAZEPAM 0.5 MG TABS 1 tab po daily CLONAZEPAM 0.5 MG TABS 974779 CLONAZEPAM Inactive PREDNISONE 20 MG TAB 3 tabs today, then 1 tab twice daily for 3 day, then one daily for three days PREDNISONE 20 MG TAB 409365 PREDNISONE Inactive PREDNISONE 20 MG TAB 2 tabs daily for 4 days, 1 tab daily for 4 days, 1/2 tab daily for 4 days PREDNISONE 20 MG TAB 417297 PREDNISONE Inactive PREDNISONE 10 MG TABS 1 tab po daily PREDNISONE 10 MG TABS 746381 PREDNISONE Inactive TYLENOL EXTRA STRENGTH 500 MG TABS as needed TYLENOL EXTRA STRENGTH 500 MG TABS 184143 ACETAMINOPHEN Inactive MUPIROCIN 2 % OINT apply to affected area BID x 14 days MUPIROCIN 2 % OINT 815196 MUPIROCIN Inactive MONTELUKAST SODIUM 10 MG TABS 1 tab po in the evening MONTELUKAST SODIUM 10 MG TABS 20010818 MONTELUKAST SODIUM Inactive BENZONATATE 100 MG CAPS 1 cap po TID PRN BENZONATATE 100 MG CAPS 240077 BENZONATATE Inactive NEURONTIN 300 MG CAP 1 cap by mouth three times daily for restless leg 06/22 NEURONTIN 300 MG CAP 636748 GABAPENTIN Inactive LEVAQUIN 500 MG TAB 1 tablet by mouth daily LEVAQUIN 500 MG TAB 144909 LEVOFLOXACIN Inactive PREDNISONE 20 MG TAB 1 TID x 2 days, then 1 BID x 3 days, then 1 Daily x 3 days, then stop PREDNISONE 20 MG TAB 601347 PREDNISONE Inactive POTASSIUM CHLORIDE ER 10 MEQ CR-TABS take 1 tab po daily POTASSIUM CHLORIDE ER 10 MEQ CR-TABS POTASSIUM CHLORIDE Inactive PREDNISONE 20 MG TAB 1 tab twice daily for 3 day, then one daily for three days PREDNISONE 20 MG TAB 852954 PREDNISONE Inactive TESSALON PERLES 100 MG CAP 1 to 2 tablets by mouth 3 times daily as needed for cough TESSALON PERLES 100 MG CAP 885639 BENZONATATE Inactive POTASSIUM CHLORIDE CR 10 MEQ CPCR 1 capsule by mouth daily 02/14 POTASSIUM CHLORIDE CR 10 MEQ CPCR POTASSIUM CHLORIDE Inactive NITROSTAT 0.4 MG SUBL 1 tab under tongueas needed for chest pain ( may take 3 total, 5 min apart, then call 911) NITROSTAT 0.4 MG SUBL 961569 NITROGLYCERIN Inactive LOVASTATIN 40 MG TABS 1 pill by mouth nightly for cholesterol LOVASTATIN 40 MG TABS 303457 LOVASTATIN Inactive CEFDINIR 300 MG ORAL CAPS take 1 cap po bid x 10 days CEFDINIR 300 MG ORAL CAPS 568736 CEFDINIR Inactive ACEBUTOLOL HCL 200 MG CAPS 1 cap in the morning and 2 caps in the evening ACEBUTOLOL HCL 200 MG CAPS 317760 ACEBUTOLOL HCL Inactive VENTOLIN HFA 108 (90 BASE) MCG/ACT AERS 2 -4 puffs four times a day PRN 2013 VENTOLIN HFA 108 (90 BASE) MCG/ACT AERS ALBUTEROL SULFATE Inactive LEVAQUIN 500 MG ORAL TABS Take 1 tab po daily x 8 days LEVAQUIN 500 MG ORAL TABS 052822 LEVOFLOXACIN Inactive PREDNISONE 20 MG TAB 2 tabs daily for 4 days, 1 tab daily for 4 days, 1/2 tab daily for 4 days PREDNISONE 20 MG TAB 128901 PREDNISONE Inactive LOVASTATIN 40 MG ORAL TABS Take 1 tab po every hs LOVASTATIN 40 MG ORAL TABS 415935 LOVASTATIN Inactive DILAUDID 2 MG ORAL TABS Take 1/2 tab po every 4 hours as needed for pain 2014 DILAUDID 2 MG ORAL TABS 323810 HYDROMORPHONE HCL Inactive AMITRIPTYLINE HCL 25 MG ORAL TABS 1 q hs prn AMITRIPTYLINE HCL 25 MG ORAL TABS 647160 AMITRIPTYLINE HCL Inactive MECLIZINE HCL 25 MG TAB 1 tablet three times daily for 3 days, then 1/2 tab three times daily for 3 days. MECLIZINE HCL 25 MG TAB 061975 MECLIZINE HCL Inactive AMLODIPINE BESYLATE 5 MG ORAL TABS Take 1 tab po daily AMLODIPINE BESYLATE 5 MG ORAL TABS 514626 AMLODIPINE BESYLATE Inactive TOPIRAMATE 25 MG TABS 1 tab po BID TOPIRAMATE 25 MG TABS 626813 TOPIRAMATE Inactive PREDNISONE 20 MG TAB 1 tablet twice daily for 2 days, then 1 tablet once daily for 2 days PREDNISONE 20 MG TAB 987921 PREDNISONE Inactive PREDNISONE 20 MG TAB 1 tab twice daily for 3 day, then one daily for three days PREDNISONE 20 MG TAB 578983 PREDNISONE Inactive NIFEDIPINE ER 30 MG ORAL [id number] 1 daily NIFEDIPINE ER 30 MG ORAL [id number] NIFEDIPINE Inactive AMLODIPINE BESYLATE 5 MG TABS 1 tablet by mouth daily AMLODIPINE BESYLATE 5 MG TABS 550049 AMLODIPINE BESYLATE Inactive LASIX 20 MG TAB 1 tablet by mouth every morning LASIX 20 MG TAB 474206 FUROSEMIDE Inactive POTASSIUM CHLORIDE CR 10 MEQ CPCR 1 capsule BID POTASSIUM CHLORIDE CR 10 MEQ CPCR POTASSIUM CHLORIDE Inactive POTASSIUM CHLORIDE 20 MEQ ORAL PACK 1 tab po q day POTASSIUM CHLORIDE 20 MEQ ORAL PACK 6447931 POTASSIUM CHLORIDE Inactive AZITHROMYCIN 250 MG TABS 2 po qd x 1 day, then 1 po qd x 4 days AZITHROMYCIN 250 MG TABS 653018 AZITHROMYCIN Inactive AZITHROMYCIN 250 MG TABS 2 po qd x 1 day, then 1 po qd x 4 days AZITHROMYCIN 250 MG TABS 158896 AZITHROMYCIN Inactive PREDNISONE 20 MG TAB 2 po qd x 5 days PREDNISONE 20 MG TAB 268994 PREDNISONE Inactive Vital Signs Date Name Value [...] Panel - Chemistry sodium, serum 140 mmol/L 846-809 3915/07/13 urea nitrogen, blood 13 mg/dL - creatinine, serum 0.84 mg/dL 0.60-1.30 carbon dioxide, venous blood 29.2 mmol/L 21.0-32.0 blood glucose 87 mg/dL 65-110 calcium, serum 8.5 mg/dL 8.5-10.1 urea nitrogen, blood 8 mg/dL - creatinine, serum 0.82 mg/dL 0.55-1.30 chloride, serum 102 mmol/L 98-107 potassium, serum 3.4 mmol/L 3.5-5.2 sodium, serum 137 mmol/L 246-314 8113/07/13 potassium, serum 3.2 mmol/L 3.5-5.2 chloride, serum 103 mmol/L 98-107 carbon dioxide, venous blood 26.9 mmol/L 21.0-32.0 blood glucose 93 mg/dL 65-110 calcium, serum 9.2 mg/dL 8.5-10.1 sodium, serum 140 mmol/L 443-548 8662/08/21 urea nitrogen, blood 11 mg/dL 7-18 creatinine, [...] ... - Chemistry sodium, serum 141 mmol/L 225-592 6097/08/07 creatinine, serum 0.97 mg/dL 0.60-1.30 alanine aminotransferase [...] 0-19 Encounters Code Encounter Date Provider Facility CPT-23084 Level 4 Est. Patient 14:45:25 CDT Harnider Hernandez [facility] CPT-09935 Level 4 Est. Patient 09:15:13 CDT Harinder Cr [facility] CPT-02903 Level 3 Est. Patient 11:51:58 CDT Harinder Cr [facility] CPT-10810 Level 3 Est. Patient 11:30:05 CDT Harinder Cr [facility] CPT-16440 Level 4 Est. Patient 10:19:23 CDT Harinder Cr [facility] CPT-75785 Level 3 Est. Patient 09:58:58 CDT Harinder Cr [facility] CPT-54954 Level 3 Est. Patient 12:37:21 CDT Harinder Cr [facility] CPT-59188 Level 3 Est. Patient 18:37:17 CDT Harinder Cr [facility] CPT-70884 Level 4 Est. Patient 11:15:54 CDT Nettie Rohith [facility] CPT-46495 Level 3 Est. Patient 16:42:24 CDT Harinder Cr [facility] CPT-06921 Level 3 Est. Patient 15:03:36 CDT Harinder Cr [facility] CPT-64578 Level 3 Est. Patient 15:03:20 CDT Harinder Cr [facility] CPT-26122 Level 3 Est. Patient 12:14:34 CDT Harinder Cr [facility] CPT-93167 Level 3 Est. Patient 13:47:15 CDT Harinder Cr [facility] CPT-40729 Level 3 Est. Patient 14:08:24 CDT Harinder Cr [facility] CPT-58875 Level 3 Est. Patient 10:07:15 CDT Harinder Hernandez [facility] CPT-86784 Level 3 Est. Patient 10:06:59 CDT Harinder Hernandez [facility] CPT-43228 Level 3 Est. Patient 15:53:29 CDT Jae Morgan MD [facility] CPT-17654 Level 3 Est. Patient 17:19:04 CDT Harinder Shaye David [facility] CPT-86051 Level 3 Est. Patient 11:13:01 CDT Harinder Hernandez [facility] CPT-25084 Level 3 Est. Patient 09:03:58 CDT Harinder Hernandez [facility] CPT-66780 Level 3 Est. Patient 14:46:45 FIBRE COMPOSITE TECHNICIAN Harinder Shaye David [facility] CPT-18807 Level 3 Est. Patient 09:35:49 FIBRE COMPOSITE TECHNICIAN Harinder Hernandez [facility] CPT-99090 Level 3 Est. Patient 09:29:37 FIBRE COMPOSITE TECHNICIAN Harinder Hernandez [facility] CPT-94012 Level 3 Est. Patient 15:51:07 CDT Harinder Hernandez [facility] CPT-53289 Level 3 Est. Patient 18:13:13 CDT Harinder Hernandez [facility] CPT-59862 Level 3 Est. Patient 10:44:19 CDT Harinder Hernandez [facility] CPT-32089 Level 4 Est. Patient 10:07:19 FIBRE COMPOSITE TECHNICIAN Harinder Cr [facility] CPT-90036 Level 3 Est. Patient 15:59:32 FIBRE COMPOSITE TECHNICIAN Harinder Hernandez [facility] Procedures Code Procedure Name Date Entry Date Standard Description CPT-19727 Abd compl w upright - XRAY USE ONLY 14:48:09 CDT 02/18 CPT-32312 Port a cath flush 13:46:05 CDT CPT-35402 Hip, complete, 2-3 views - XRAY USE ONLY 10:28:40 CDT CPT-85263 BMP - LAB USE ONLY 16:45:09 FIBRE COMPOSITE TECHNICIAN CPT-52286 Port a cath flush 12:00:13 FIBRE COMPOSITE TECHNICIAN CPT-TCMM Transitional Care Mgmt-Moderate 11:20:16 FIBRE COMPOSITE TECHNICIAN CPT-60184 First Vx - Ix admin for Medicare patients 17:35:15 CDT CPT-76143 Fluzone Preservative Free Intramuscular Suspension 17:35 :15 CDT CPT-77965 Microalbumin - LAB USE ONLY 11:52:05 CDT CPT-TCMM Transitional Care Mgmt-Moderate 11:33:57 CDT CPT-04746 No Charge Offi Visit 14:11:29 CDT CPT-75131 Magnesium - LAB USE ONLY 10:45:44 CDT CPT-24208 Lipid - LAB USE ONLY 10:45:44 CDT CPT-54583 CBC - LAB USE ONLY 10:45:44 CDT CPT-30259 Venipuncture Draw Fee 10:45:43 CDT CPT-98093 Venipuncture Draw Fee 18:21:27 CDT CPT-JTINJ Asp/Joint Injection 18:38:04 CDT CPT-26902 Immunization Each Additional Inj 17:38:04 CDT CPT-26333 Immunization Single Admin 17:38:04 CDT CPT-07000 Prevnar 13 17:38:04 CDT CPT-30706 Fluzone Quadrivalent preservative free (>=3yrs.) 17:38: 04 CDT CPT-36444 No Charge Offi Visit 11:14:03 CDT CPT-25735 Chest 2V Frontal and Lat 14:00:18 CDT CPT-OV Office Visit 16:10:28 CDT CPT-JTINJ Asp/Joint Injection 09:03:57 CDT CPT-Cryo Cryotherapy 09:35:49 FIBRE COMPOSITE TECHNICIAN CPT-JTINJ Asp/Joint Injection 09:34:45 FIBRE COMPOSITE TECHNICIAN CPT-J2930 Solu Medrol 125 mg (Methyl Prednisolone Sodium Succinate) 20:37:27 CDT CPT-78552 Abx/Therapy Injection 20:37:27 CDT CPT-24304 Port a cath flush 08:15:51 CDT CPT-18765 Port a cath flush 09:54:16 CDT CPT-48846 Port a cath flush 09:38:02 CDT CPT-35491 Port a cath flush 11:00:27 FIBRE COMPOSITE TECHNICIAN
--- OUTSIDE RECORDS SUMMARY | 2017-12-29 02:49 | XMS REPORT | Clinical Summary ---
Author Author Admin, QIE Organization [facility] Address Unknown Phone Unavailable Allergies, Adverse Reactions, [...] of cerebrovascular disease Venous insufficiency 459.81 Active eNttie Newberry APRN Venous (peripheral) insufficiency, unspecified Greater [...] TABLET 1 tablet by mouth daily SPIRONOLACTONE 10976999437 No Longer Active Jeri Nieto Active PREDNISONE 20 MG ORAL TABLET 2 tablets by mouth today, then 1 tablet by mouth days 2-3 PREDNISONE 67982002648 No Longer Active Jeri Nieto Active NITROSTAT 0.4 MG SUBLINGUAL TABLET SUBLINGUAL 1 tab SL q5min PRN chest pain NITROGLYCERIN 72484251281 Active Meenu Alejo LPN Active THEOPHYLLINE ER 300 MG ORAL TABLET EXTENDED RELEASE 12 HOUR 1 po BID THEOPHYLLINE 21625346536 Active Kortney Mccain Active POTASSIUM CHLORIDE ER 20 MEQ ORAL TABLET EXTENDED RELEASE 1 po q day POTASSIUM CHLORIDE 52388530649 Active Kortney Mccain Active POTASSIUM CHLORIDE 20 MEQ ORAL PACKET 1 tab po q day POTASSIUM CHLORIDE 51576910250 No Longer Active Kortney Mccain Active POTASSIUM CHLORIDE ER 10 MEQ ORAL CAPSULE EXTENDED RELEASE 1 capsule BID 2016 POTASSIUM CHLORIDE 39553238062 No Longer Active Kortney Mccain Active LASIX 20 MG ORAL TABLET 1 tablet by mouth every morning FUROSEMIDE 25350433204 No Longer Active Kortney Mccain Active FLUOXETINE HCL 10 MG ORAL CAPSULE 1 po qd for depression/anxiety FLUOXETINE HCL 55039973509 Active Meenu Alejo LPN Active VOLTAREN 1 % TRANSDERMAL GEL apply q 6-8 hour to left arm as needed for pain DICLOFENAC SODIUM 55646105595 Active Kortney Mccain Active ALBUTEROL SULFATE (2.5 MG/3ML) 0.083% INHALATION NEBULIZATION SOLUTION 1 vial neb q 4hrs for severe asthma. 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 NIFEDIPINE 52824143570 Active Kortney Mccain Active AMLODIPINE BESYLATE 5 MG ORAL TABLET 1 tablet by mouth daily 2016 AMLODIPINE BESYLATE 66526805816 No Longer Active Harinder Hernandez DO Active TOPAMAX 25 MG ORAL TABLET 1 tab po BID TOPIRAMATE 40866667782 Active Kortney Mccain Active FLUTICASONE PROPIONATE 50 MCG/ACT NASAL SUSPENSION 2 sprays per nostril daily PRN Allergies FLUTICASONE PROPIONATE 86988742034 Active Meenu Alejo LPN Active NIFEDIPINE ER 30 MG ORAL TABLET EXTENDED RELEASE 24 HOUR 1 daily NIFEDIPINE 61568199277 No Longer Active Harinder Hernandez DO Active FLOVENT HFA 110 MCG/ACT INHALATION AEROSOL 2 puffs inhaled b.i.d. FLUTICASONE PROPIONATE HFA 60611528285 Active Harinder Hernandez DO Active EPIPEN 2-BRUNA 0.3 MG/0.3ML INJECTION SOLUTION AUTO-INJECTOR 1 INJ NEEDED EPINEPHRINE 51611021255 Active Meenu Alejo LPN Active PREDNISONE 20 MG ORAL TABLET 1 tab twice daily for 3 day, then one daily for three days PREDNISONE 16065279808 No Longer Active Harinder Hernandez DO Active PREDNISONE 20 MG ORAL TABLET 1 tablet twice daily for 2 days, then 1 tablet once daily for 2 days PREDNISONE 44359764153 No Longer Active Harinder Hernandez DO Active ASMANEX 120 METERED DOSES 220 MCG/INH INHALATION AEROSOL POWDER BREATH ACTIVATED 2 puffs orally twice daily MOMETASONE FUROATE 39892434234 Active Jeri Sosa LPN Active TOPIRAMATE 25 MG ORAL TABLET 1 tab po BID TOPIRAMATE 48591348443 No Longer Active Nettie Newberry APRN Active AMLODIPINE BESYLATE 5 MG ORAL TABLET Take 1 tab po daily AMLODIPINE BESYLATE 89566723283 No Longer Active Nettie Newberry APRN Active MECLIZINE HCL 25 MG ORAL TABLET 1 tablet three times daily for 3 days, then 1/ 2 tab three times daily for 3 days. MECLIZINE HCL 94115124840 No Longer Active Nettie Newberry APRN Active AMITRIPTYLINE HCL 25 MG ORAL TABLET 1 q hs prn AMITRIPTYLINE HCL 08218629483 No Longer Active Nettie Newberry APRN Active DILAUDID 2 MG ORAL TABLET Take 1/2 tab po every 4 hours as needed for pain HYDROMORPHONE HCL 33800055352 No Longer Active Nettie Newberry APRN Active CLOPIDOGREL BISULFATE 75 MG ORAL TABLET 1 tab by mouth once daily CLOPIDOGREL BISULFATE 41646961481 Active Meenu Alejo LPN Active ATORVASTATIN CALCIUM 10 MG ORAL TABLET 1 at bedtime ATORVASTATIN CALCIUM 68720727855 Active Kortney Mccain Active LOVASTATIN 40 MG ORAL TABLET Take 1 tab po every hs LOVASTATIN 09084375178 No Longer Active Harinder Hernandez DO Active PREDNISONE 20 MG ORAL TABLET 2 tabs daily for 4 days, 1 tab daily for 4 days, 1/2 tab daily for 4 days PREDNISONE 19016037440 No Longer Active Harinder Hernandez DO Active LEVAQUIN 500 MG ORAL TABLET Take 1 tab po daily x 8 days LEVOFLOXACIN 66729780088 No Longer Active Harinder Hernandez DO Active VENTOLIN HFA 108 (90 Base) MCG/ACT INHALATION AEROSOL SOLUTION 2 -4 puffs four times a day PRN ALBUTEROL SULFATE 08031058083 No Longer Active Jeri Sosa LPN Active ACEBUTOLOL HCL 200 MG ORAL CAPSULE 1 cap in the morning and 2 caps in the evening ACEBUTOLOL HCL 28512515792 No Longer Active Harinder Hernandez DO Active CEFDINIR 300 MG ORAL CAPSULE take 1 cap po bid x 10 days CEFDINIR 33755366187 No Longer Active Harinder Hernandez DO Active LOVASTATIN 40 MG ORAL TABLET 1 pill by mouth nightly for cholesterol LOVASTATIN 27958196244 No Longer Active Nettie Newberry APRN Active NITROSTAT 0.4 MG SUBLINGUAL TABLET SUBLINGUAL 1 tab under tongueas needed for chest pain ( may take 3 total, 5 min apart, then call 911) NITROGLYCERIN 09754851761 No Longer Active Nettie Newberry APRN Active POTASSIUM CHLORIDE ER 10 MEQ ORAL CAPSULE EXTENDED RELEASE 1 capsule by mouth daily POTASSIUM CHLORIDE 44429054803 No Longer Active Nettie Newberry APRN Active TESSALON PERLES 100 MG ORAL CAPSULE 1 to 2 tablets by mouth 3 times daily as needed for cough BENZONATATE 39786368213 No Longer Active Nettie Newberry APRN Active PREDNISONE 20 MG ORAL TABLET 2 po qd x 5 days PREDNISONE 88044723625 No Longer Active Jae Morgan MD Active AZITHROMYCIN 250 MG ORAL TABLET 2 po qd x 1 day, then 1 po qd x 4 days 12/30 AZITHROMYCIN 05921667805 No Longer Active Jae Morgan MD Active PREDNISONE 20 MG ORAL TABLET 1 tab twice daily for 3 day, then one daily for three days PREDNISONE 78422905266 No Longer Active Jae Morgan MD Active SINGULAIR 10 MG ORAL TABLET 1 pill by mouth every evening for breathing. 2014 MONTELUKAST SODIUM 21643225962 Active Meenu Alejo MERCHANDISE APPRAISER Active TYLENOL 325 MG ORAL TABLET 3 by mouth q4h as needed ACETAMINOPHEN 12599131589 Active Harinder Hernandez DO Active POTASSIUM CHLORIDE ER 10 MEQ ORAL TABLET EXTENDED RELEASE take 1 tab po daily POTASSIUM CHLORIDE 30729647376 No Longer Active Harinder Hernandez DO Active PREDNISONE 20 MG ORAL TABLET 1 TID x 2 days, then 1 BID x 3 days, then 1 Daily x 3 days, then stop PREDNISONE 40010345946 No Longer Active Jillina Frazell [employer] Active LEVAQUIN 500 MG ORAL TABLET 1 tablet by mouth daily LEVOFLOXACIN 50999533564 No Longer Active Jillina Frazell [employer] Active NEURONTIN 300 MG ORAL CAPSULE 1 cap by mouth three times daily for restless leg GABAPENTIN 23478952818 No Longer Active Harinder Hernandez DO Active BENZONATATE 100 MG ORAL CAPSULE 1 cap po TID PRN BENZONATATE 68685214141 No Longer Active Harinder Hernandez DO Active MONTELUKAST SODIUM 10 MG ORAL TABLET 1 tab po in the evening 2014 MONTELUKAST SODIUM 36955568420 No Longer Active Harinder Hernandez DO Active MUPIROCIN 2 % EXTERNAL OINTMENT apply to affected area BID x 14 days MUPIROCIN 05885661578 No Longer Active Harinder Hernandez DO Active TYLENOL EXTRA STRENGTH 500 MG ORAL TABLET as needed ACETAMINOPHEN 98621503179 No Longer Active Harinder Hernandez DO Active PREDNISONE 10 MG ORAL TABLET 1 tab po daily PREDNISONE 66026740329 No Longer Active Harinder Hernandez DO Active PREDNISONE 20 MG ORAL TABLET 2 tabs daily for 4 days, 1 tab daily for 4 days, 1/2 tab daily for 4 days PREDNISONE 48764938669 No Longer Active Harinder Hernandez DO Active AZITHROMYCIN 250 MG ORAL TABLET 2 po qd x 1 day, then 1 po qd x 4 days 04/06 AZITHROMYCIN 64357093159 No Longer Active Harinder Hernandez DO Active PREDNISONE 20 MG ORAL TABLET 3 tabs today, then 1 tab twice daily for 3 day, then one daily for three days PREDNISONE 95541081011 No Longer Active Harinder Hernandez DO Active NIFEDIAC CC 30 MG ORAL TABLET EXTENDED RELEASE 24 HOUR 1 tablet daily for raynaud's syndrome NIFEDIPINE 57082644600 No Longer Active Tawnya Pardo MA Active AMBIEN 10 MG ORAL TABLET 1/2 tab by mouth at bedtime as needed for sleep 2013 ZOLPIDEM TARTRATE 43530708982 Active Meenu Alejo LPN Active CLONAZEPAM 1 MG ORAL TABLET 1 tablet at bedtime for insomnia and restless legs CLONAZEPAM 79736282296 Active Meenu Alejo LPN Active CLONAZEPAM 0.5 MG ORAL TABLET 1 tab po daily CLONAZEPAM 31360337604 No Longer Active Harinder Hernandez DO Active PREDNISONE 10 MG ORAL TABLET 1 tablet daily for COPD PREDNISONE 31505470433 Active Kortney Mccain Active PROAIR HFA 108 (90 Base) MCG/ACT INHALATION AEROSOL SOLUTION 2 puffs four times a day as needed ALBUTEROL SULFATE 76939368710 Active Harindre Hernandez DO Active FLOVENT HFA 110 MCG/ACT INHALATION AEROSOL 2 puffs inhaled b.i.d. FLUTICASONE PROPIONATE HFA 22939563917 Active Kortney Mccain Active ACIPHEX 20 MG ORAL TABLET DELAYED RELEASE 1 tab po daily RABEPRAZOLE SODIUM 10265745809 Active Meenu Alejo LPN Active CLONAZEPAM 0.5 MG ORAL TABLET 1 tab po daily CLONAZEPAM 0.5 MG ORAL TABLET 831158 CLONAZEPAM Inactive PREDNISONE 20 MG ORAL TABLET 3 tabs today, then 1 tab twice daily for 3 day, then one daily for three days PREDNISONE 20 MG ORAL TABLET 436922 PREDNISONE Inactive PREDNISONE 20 MG ORAL TABLET 2 tabs daily for 4 days, 1 tab daily for 4 days, 1/2 tab daily for 4 days PREDNISONE 20 MG ORAL TABLET 919939 PREDNISONE Inactive PREDNISONE 10 MG ORAL TABLET 1 tab po daily PREDNISONE 10 MG ORAL TABLET 395462 PREDNISONE Inactive TYLENOL EXTRA STRENGTH 500 MG ORAL TABLET as needed TYLENOL EXTRA STRENGTH 500 MG ORAL TABLET 895507 ACETAMINOPHEN Inactive MUPIROCIN 2 % EXTERNAL OINTMENT apply to affected area BID x 14 days MUPIROCIN 2 % EXTERNAL OINTMENT 582378 MUPIROCIN Inactive MONTELUKAST SODIUM 10 MG ORAL TABLET 1 tab po in the evening 2014 MONTELUKAST SODIUM 10 MG ORAL TABLET 294084 MONTELUKAST SODIUM Inactive BENZONATATE 100 MG ORAL CAPSULE 1 cap po TID PRN BENZONATATE 100 MG ORAL CAPSULE 824113 BENZONATATE Inactive NEURONTIN 300 MG ORAL CAPSULE 1 cap by mouth three times daily for restless leg NEURONTIN 300 MG ORAL CAPSULE 846135 GABAPENTIN Inactive LEVAQUIN 500 MG ORAL TABLET 1 tablet by mouth daily LEVAQUIN 500 MG ORAL TABLET 853135 LEVOFLOXACIN Inactive PREDNISONE 20 MG ORAL TABLET 1 TID x 2 days, then 1 BID x 3 days, then 1 Daily x 3 days, then stop PREDNISONE 20 MG ORAL TABLET 797753 PREDNISONE Inactive POTASSIUM CHLORIDE ER 10 MEQ ORAL TABLET EXTENDED RELEASE take 1 tab po daily POTASSIUM CHLORIDE ER 10 MEQ ORAL TABLET EXTENDED RELEASE POTASSIUM CHLORIDE Inactive PREDNISONE 20 MG ORAL TABLET 1 tab twice daily for 3 day, then one daily for three days PREDNISONE 20 MG ORAL TABLET 335670 PREDNISONE Inactive TESSALON PERLES 100 MG ORAL CAPSULE 1 to 2 tablets by mouth 3 times daily as needed for cough TESSALON PERLES 100 MG ORAL CAPSULE 841628 BENZONATATE Inactive POTASSIUM CHLORIDE ER 10 MEQ ORAL CAPSULE EXTENDED RELEASE 1 capsule by mouth daily POTASSIUM CHLORIDE ER 10 MEQ ORAL CAPSULE EXTENDED RELEASE POTASSIUM CHLORIDE Inactive NITROSTAT 0.4 MG SUBLINGUAL TABLET SUBLINGUAL 1 tab under tongueas needed for chest pain ( may take 3 total, 5 min apart, then call 911) NITROSTAT 0.4 MG SUBLINGUAL TABLET SUBLINGUAL 446976 NITROGLYCERIN Inactive LOVASTATIN 40 MG ORAL TABLET 1 pill by mouth nightly for cholesterol LOVASTATIN 40 MG ORAL TABLET 173893 LOVASTATIN Inactive CEFDINIR 300 MG ORAL CAPSULE take 1 cap po bid x 10 days CEFDINIR 300 MG ORAL CAPSULE 277812 CEFDINIR Inactive ACEBUTOLOL HCL 200 MG ORAL CAPSULE 1 cap in the morning and 2 caps in the evening ACEBUTOLOL HCL 200 MG ORAL CAPSULE 718578 ACEBUTOLOL HCL Inactive VENTOLIN HFA 108 (90 Base) MCG/ACT INHALATION AEROSOL SOLUTION 2 -4 puffs four times a day PRN VENTOLIN HFA 108 (90 Base) MCG/ ACT INHALATION AEROSOL SOLUTION ALBUTEROL SULFATE Inactive LEVAQUIN 500 MG ORAL TABLET Take 1 tab po daily x 8 days LEVAQUIN 500 MG ORAL TABLET 092071 LEVOFLOXACIN Inactive PREDNISONE 20 MG ORAL TABLET 2 tabs daily for 4 days, 1 tab daily for 4 days, 1/2 tab daily for 4 days PREDNISONE 20 MG ORAL TABLET 758391 PREDNISONE Inactive LOVASTATIN 40 MG ORAL TABLET Take 1 tab po every hs LOVASTATIN 40 MG ORAL TABLET 420733 LOVASTATIN Inactive DILAUDID 2 MG ORAL TABLET Take 1/2 tab po every 4 hours as needed for pain DILAUDID 2 MG ORAL TABLET 253125 HYDROMORPHONE HCL Inactive AMITRIPTYLINE HCL 25 MG ORAL TABLET 1 q hs prn AMITRIPTYLINE HCL 25 MG ORAL TABLET 092197 AMITRIPTYLINE HCL Inactive MECLIZINE HCL 25 MG ORAL TABLET 1 tablet three times daily for 3 days, then 1/ 2 tab three times daily for 3 days. MECLIZINE HCL 25 MG ORAL TABLET 788102 MECLIZINE HCL Inactive AMLODIPINE BESYLATE 5 MG ORAL TABLET Take 1 tab po daily AMLODIPINE BESYLATE 5 MG ORAL TABLET 627583 AMLODIPINE BESYLATE Inactive TOPIRAMATE 25 MG ORAL TABLET 1 tab po BID TOPIRAMATE 25 MG ORAL TABLET 497550 TOPIRAMATE Inactive PREDNISONE 20 MG ORAL TABLET 1 tablet twice daily for 2 days, then 1 tablet once daily for 2 days PREDNISONE 20 MG ORAL TABLET 041235 PREDNISONE Inactive PREDNISONE 20 MG ORAL TABLET 1 tab twice daily for 3 day, then one daily for three days PREDNISONE 20 MG ORAL TABLET 245981 PREDNISONE Inactive NIFEDIPINE ER 30 MG ORAL TABLET EXTENDED RELEASE 24 HOUR 1 daily NIFEDIPINE ER 30 MG ORAL TABLET EXTENDED RELEASE 24 HOUR NIFEDIPINE Inactive AMLODIPINE BESYLATE 5 MG ORAL TABLET 1 tablet by mouth daily 2016 AMLODIPINE BESYLATE 5 MG ORAL TABLET 356719 AMLODIPINE BESYLATE Inactive LASIX 20 MG ORAL TABLET 1 tablet by mouth every morning LASIX 20 MG ORAL TABLET 171199 FUROSEMIDE Inactive POTASSIUM CHLORIDE ER 10 MEQ ORAL CAPSULE EXTENDED RELEASE 1 capsule BID 2016 POTASSIUM CHLORIDE ER 10 MEQ ORAL CAPSULE EXTENDED RELEASE POTASSIUM CHLORIDE Inactive POTASSIUM CHLORIDE 20 MEQ ORAL PACKET 1 tab po q day POTASSIUM CHLORIDE 20 MEQ ORAL PACKET 1129291 POTASSIUM CHLORIDE Inactive PREDNISONE 20 MG ORAL TABLET 2 tablets by mouth today, then 1 tablet by mouth days 2-3 PREDNISONE 20 MG ORAL TABLET 837848 PREDNISONE Inactive SPIRONOLACTONE 25 MG ORAL TABLET 1 tablet by mouth daily SPIRONOLACTONE 25 MG ORAL TABLET 505912 SPIRONOLACTONE Inactive AZITHROMYCIN 250 MG ORAL TABLET 2 po qd x 1 day, then 1 po qd x 4 days 04/06 AZITHROMYCIN 250 MG ORAL TABLET 197005 AZITHROMYCIN Inactive AZITHROMYCIN 250 MG ORAL TABLET 2 po qd x 1 day, then 1 po qd x 4 days 12/30 AZITHROMYCIN 250 MG ORAL TABLET 341441 AZITHROMYCIN Inactive PREDNISONE 20 MG ORAL TABLET 2 po qd x 5 days PREDNISONE 20 MG ORAL TABLET 305531 PREDNISONE Inactive Vital Signs Date Name Value [...] Panel - Chemistry sodium, serum 140 mmol/L 504-462 2987/07/13 potassium, serum 3.2 mmol/L 3.5-5.2 chloride, serum 103 mmol/L 98-107 carbon dioxide, venous blood 26.9 mmol/L 21.0-32.0 blood glucose 93 mg/dL 65-110 calcium, serum 9.2 mg/dL 8.5-10.1 urea nitrogen, blood 13 mg/dL 7-18 creatinine, serum 0.84 mg/dL 0.60-1.30 sodium, serum 140 mmol/L 369-358 8251/08/21 potassium, serum 3.8 mmol/L 3.5-5.2 chloride, serum [...] ... - Chemistry sodium, serum 141 mmol/L 278-898 7783/08/07 carbon dioxide, venous blood 34.0 mmol/L 21.0-32.0 [...] 1.40 mg/dL 0.00-1.00 cholesterol, serum 192 mg/dL 048-065 1482/10/19 triglyceride, serum, fasting 71 mg/dL 30-200 HDL cholesterol, serum 72 mg/dL 32-60 LDL cholesterol, serum 106 mg/dL 0-130 Lab Report: Rapid Strep - Lab Microbial identification kit, rapid strep method Negative Negative Lab Report: THEOPHYLLINE - Toxicology theophylline level, serum 3.1 ug/mL 10.0-20.0 Encounters Code Encounter Date Provider Facility CPT-51779 Level 4 Est. Patient 10:17:51 CUT OFF SAW SET UP OPERATOR Harinder Cr [facility] CPT-62829 Level 3 Est. Patient 12:36:15 CUT OFF SAW SET UP OPERATOR Harinder Cr [facility] CPT-25469 Level 3 Est. Patient 15:14:45 CUT OFF SAW SET UP OPERATOR Harinder Cr [facility] CPT-45149 Level 4 Est. Patient 14:45:25 CDT Harinder Cr [facility] CPT-14899 Level 4 Est. Patient 09:15:13 CDT Harinder Cr [facility] CPT-59603 Level 3 Est. Patient 11:51:58 CDT Harinder Cr [facility] CPT-89545 Level 3 Est. Patient 11:30:05 CDT Harinder Cr [facility] CPT-93339 Level 4 Est. Patient 10:19:23 CDT Harinder Cr [facility] CPT-18176 Level 3 Est. Patient 09:58:58 CDT Harinder Cr [facility] CPT-66809 Level 3 Est. Patient 12:37:21 CDT Harinder Hernandez [facility] CPT-45516 Level 3 Est. Patient 18:37:17 CDT Harinder Hernandez [facility] CPT-48936 Level 4 Est. Patient 11:15:54 CDT Nettie Newberry APRN [facility] CPT-38357 Level 3 Est. Patient 16:42:24 CDT Harinder Hernandez [facility] CPT-51638 Level 3 Est. Patient 15:03:36 CDT Harinder Hernandez [facility] CPT-02385 Level 3 Est. Patient 15:03:20 CDT Harinder Hernandez [facility] CPT-27236 Level 3 Est. Patient 12:14:34 CDT Harinder Hernandez [facility] CPT-41216 Level 3 Est. Patient 13:47:15 CDT Harinder Hernandez [facility] CPT-95275 Level 3 Est. Patient 14:08:24 CDT Harinder Hernandez [facility] CPT-92993 Level 3 Est. Patient 10:07:15 CDT Harinder Hernandez [facility] CPT-90182 Level 3 Est. Patient 10:06:59 CDT Harinder Cr [facility] CPT-30924 Level 3 Est. Patient 15:53:29 CDT Jae Morgan MD [facility] CPT-85514 Level 3 Est. Patient 17:19:04 CDT Harinder Hernandez [facility] CPT-18412 Level 3 Est. Patient 11:13:01 CDT Harinder Hernandez [facility] CPT-86100 Level 3 Est. Patient 09:03:58 CDT Harinder Cr [facility] CPT-47670 Level 3 Est. Patient 14:46:45 CUT OFF SAW SET UP OPERATOR Harinder Cr [facility] CPT-77036 Level 3 Est. Patient 09:35:49 CUT OFF SAW SET UP OPERATOR Harinder Hernandez [facility] CPT-60347 Level 3 Est. Patient 09:29:37 CUT OFF SAW SET UP OPERATOR Harinder Hernandez [facility] CPT-69438 Level 3 Est. Patient 15:51:07 CDT Harinder Hernandez [facility] CPT-25707 Level 3 Est. Patient 18:13:13 CDT Harinder Hernandez [facility] CPT-02234 Level 3 Est. Patient 10:44:19 CDT Harinder Hernandez [facility] CPT-93251 Level 4 Est. Patient 10:07:19 CUT OFF SAW SET UP OPERATOR Harinder Hernandez [facility] CPT-10590 Level 3 Est. Patient 15:59:32 CUT OFF SAW SET UP OPERATOR Harinder Hernandez [facility] Procedures Code Procedure Name Date Entry Date Standard Description CPT-29159 Bone Density - XRAY USE ONLY 14:43:42 CDT CPT-G0009 Administration of Pneumococcal Vaccine 10:33:25 CUT OFF SAW SET UP OPERATOR CPT-45279 Pneumovax 23 Injection Injectable 25 MCG/0.5ML 10:33:25 CUT OFF SAW SET UP OPERATOR CPT-69163 First Vx - Ix admin for Medicare patients 10:33:25 CUT OFF SAW SET UP OPERATOR CPT-06237 Fluzone Quadrivalent Intramuscular Suspension 0.5 ML 10: 33:25 CUT OFF SAW SET UP OPERATOR CPT-Cryo Cryotherapy 10:17:51 CUT OFF SAW SET UP OPERATOR CPT-G0438 Initial Annual Wellness Exam 10:08:59 CUT OFF SAW SET UP OPERATOR CPT-57883 Abd compl w upright - XRAY USE ONLY 14:48:09 CDT 02/18 CPT-90071 Port a cath flush 13:46:05 CDT CPT-44127 Hip, complete, 2-3 views - XRAY USE ONLY 10:28:40 CDT CPT-81907 BMP - LAB USE ONLY 16:45:09 CUT OFF SAW SET UP OPERATOR CPT-71632 Port a cath flush 12:00:13 CUT OFF SAW SET UP OPERATOR CPT-TCMM Transitional Care Mgmt-Moderate 11:20:16 CUT OFF SAW SET UP OPERATOR CPT-17699 First Vx - Ix admin for Medicare patients 17:35:15 CDT CPT-88494 Fluzone Preservative Free Intramuscular Suspension 17:35 :15 CDT CPT-70307 Microalbumin - LAB USE ONLY 11:52:05 CDT CPT-TCMM Transitional Care Mgmt-Moderate 11:33:57 CDT CPT-04652 No Charge Offi Visit 14:11:29 CDT CPT-28894 Magnesium - LAB USE ONLY 10:45:44 CDT CPT-75501 Lipid - LAB USE ONLY 10:45:44 CDT CPT-78728 CBC - LAB USE ONLY 10:45:44 CDT CPT-36572 Venipuncture Draw Fee 10:45:43 CDT CPT-72072 Venipuncture Draw Fee 18:21:27 CDT CPT-JTINJ Asp/Joint Injection 18:38:04 CDT CPT-50091 Immunization Each Additional Inj 17:38:04 CDT CPT-57278 Immunization Single Admin 17:38:04 CDT CPT-99421 Prevnar 13 17:38:04 CDT CPT-61878 Fluzone Quadrivalent preservative free (>=3yrs.) 17:38: 04 CDT CPT-32356 No Charge Offi Visit 11:14:03 CDT CPT-36852 Chest 2V Frontal and Lat 14:00:18 CDT CPT-OV Office Visit 16:10:28 CDT CPT-JTINJ Asp/Joint Injection 09:03:57 CDT CPT-Cryo Cryotherapy 09:35:49 CUT OFF SAW SET UP OPERATOR CPT-JTINJ Asp/Joint Injection 09:34:45 CUT OFF SAW SET UP OPERATOR CPT-J2930 Solu Medrol 125 mg (Methyl Prednisolone Sodium Succinate) 20:37:27 CDT CPT-49985 Abx/Therapy Injection 20:37:27 CDT CPT-46555 Port a cath flush 08:15:51 CDT CPT-59630 Port a cath flush 09:54:16 CDT CPT-59497 Port a cath flush 09:38:02 CDT CPT-49421 Port a cath flush 11:00:27 CUT OFF SAW SET UP OPERATOR
--- OUTSIDE RECORDS SUMMARY | 2017-12-29 02:51 | XMS REPORT | Clinical Summary ---
Author Author Admin, QIE Organization [facility] [employer] Address Unknown Phone Unavailable Allergies, Adverse Reactions, [...] per nostril daily PRN Allergies FLUTICASONE PROPIONATE 82287091695 Active Kortney Mccain Active ALBUTEROL SULFATE 0.083 % NEBU SOLN 1 vial neb q 4hrs PRN Wheezing Dx: J44.1 ALBUTEROL SULFATE 47246063441 Active Kortney Mccain Active AMLODIPINE BESYLATE 5 MG TABS 1 tablet by mouth daily AMLODIPINE BESYLATE 84558474121 Active Harinder Hernandez DO Active NIFEDIPINE ER 30 MG ORAL [id number] 1 daily NIFEDIPINE 30361197831 No Longer Active Harinder Hernandez DO Active POTASSIUM CHLORIDE 20 MEQ ORAL PACK Take 1 tablet by mouth daily POTASSIUM CHLORIDE 49383073231 Active Ciera Pimentel Active FLOVENT HFA 110 MCG/ACT AERO 2 puffs inhaled b.i.d. FLUTICASONE PROPIONATE HFA 25134844461 Active Harinder Hernandez DO Active POTASSIUM CHLORIDE CR 10 MEQ CPCR 1 capsule by mouth daily POTASSIUM CHLORIDE 96536301600 Active Harinder Hernandez DO Active EPIPEN 2-BRUNA 0.3 MG/0.3ML INJ SOAJ 1 INJ NEEDED EPINEPHRINE 76086093136 Active Harinder Hernandez DO Active PREDNISONE 20 MG TAB 1 tab twice daily for 3 day, then one daily for three days PREDNISONE 83209749538 No Longer Active Harinder Hernandez DO Active PREDNISONE 20 MG TAB 1 tablet twice daily for 2 days, then 1 tablet once daily for 2 days PREDNISONE 32640941544 No Longer Active Harinder Hernandez DO Active ASMANEX 120 METERED DOSES 220 MCG/INH INH AEPB 2 puffs orally twice daily MOMETASONE FUROATE 80260861767 Active Jeri Sosa RPT,RMA Active TOPIRAMATE 25 MG TABS 1 tab po BID TOPIRAMATE 54930104564 No Longer Active Nettie Newberry APRN Active AMLODIPINE BESYLATE 5 MG ORAL TABS Take 1 tab po daily AMLODIPINE BESYLATE 76614981184 No Longer Active Nettie Newberry APRN Active MECLIZINE HCL 25 MG TAB 1 tablet three times daily for 3 days, then 1/2 tab three times daily for 3 days. MECLIZINE HCL 43316619237 No Longer Active Nettie Newberry APRN Active AMITRIPTYLINE HCL 25 MG ORAL TABS 1 q hs prn AMITRIPTYLINE HCL 30333991338 No Longer Active Nettie Newberry APRN Active DILAUDID 2 MG ORAL TABS Take 1/2 tab po every 4 hours as needed for pain 2014 HYDROMORPHONE HCL 48222152140 No Longer Active Nettie Newberry MAHENDRA Active CLOPIDOGREL BISULFATE 75 MG ORAL TABS 1 tab by mouth once daily CLOPIDOGREL BISULFATE 48047852429 Active Harinder Hernandez DO Active ATORVASTATIN CALCIUM 10 MG ORAL TABS 1 at bedtime ATORVASTATIN CALCIUM 66983817267 Active Tawnya Pardo MA Active LOVASTATIN 40 MG ORAL TABS Take 1 tab po every hs LOVASTATIN 96866080931 No Longer Active Harinder Hernandez DO Active PREDNISONE 20 MG TAB 2 tabs daily for 4 days, 1 tab daily for 4 days, 1/2 tab daily for 4 days PREDNISONE 55948588602 No Longer Active Harinder Hernandez DO Active LEVAQUIN 500 MG ORAL TABS Take 1 tab po daily x 8 days LEVOFLOXACIN 01482761970 No Longer Active Harinder Hernandez DO Active VENTOLIN HFA 108 (90 BASE) MCG/ACT AERS 2 -4 puffs four times a day PRN 2013 ALBUTEROL SULFATE 10978499742 No Longer Active Jeri Sosa RPT,RMA Active ACEBUTOLOL HCL 200 MG CAPS 1 cap in the morning and 2 caps in the evening ACEBUTOLOL HCL 13968156460 No Longer Active Harinder Hernandez DO Active CEFDINIR 300 MG ORAL CAPS take 1 cap po bid x 10 days CEFDINIR 79933726033 No Longer Active Harinder Hernandez DO Active LOVASTATIN 40 MG TABS 1 pill by mouth nightly for cholesterol LOVASTATIN 08853759822 No Longer Active Nettie Newberry APRN Active NITROSTAT 0.4 MG SUBL 1 tab under tongueas needed for chest pain ( may take 3 total, 5 min apart, then call 911) NITROGLYCERIN 74113872852 No Longer Active Nettie Newberry APRN Active POTASSIUM CHLORIDE CR 10 MEQ CPCR 1 capsule by mouth daily 02/14 POTASSIUM CHLORIDE 81900374891 No Longer Active Nettie Newberry APRN Active TESSALON PERLES 100 MG CAP 1 to 2 tablets by mouth 3 times daily as needed for cough BENZONATATE 36662609415 No Longer Active Nettie Newberry APRN Active THEOPHYLLINE ER 200 MG ORAL [id number] Take 1 tab every 12 hours THEOPHYLLINE 44195676054 Active Tawnya Pardo MA Active PREDNISONE 20 MG TAB 2 po qd x 5 days PREDNISONE 64263454124 No Longer Active Jae Morgan MD Active AZITHROMYCIN 250 MG TABS 2 po qd x 1 day, then 1 po qd x 4 days AZITHROMYCIN 57265668884 No Longer Active Jae Morgan MD Active PREDNISONE 20 MG TAB 1 tab twice daily for 3 day, then one daily for three days PREDNISONE 42712511796 No Longer Active Jae Morgan MD Active SINGULAIR 10 MG TABS 1 pill by mouth every evening for breathing. MONTELUKAST SODIUM 76755259412 Active Tawnya Pardo MA Active TYLENOL 325 MG TAB 3 by mouth q4h as needed ACETAMINOPHEN 52156296407 Active Harinder Hernandez DO Active POTASSIUM CHLORIDE ER 10 MEQ CR-TABS take 1 tab po daily POTASSIUM CHLORIDE 58323714172 No Longer Active Harinder Hernandez DO Active PREDNISONE 20 MG TAB 1 TID x 2 days, then 1 BID x 3 days, then 1 Daily x 3 days, then stop PREDNISONE 39780543510 No Longer Active Jillina Frazellor STONE POLISHER MACHINE Active LEVAQUIN 500 MG TAB 1 tablet by mouth daily LEVOFLOXACIN 69762617647 No Longer Active Jillina Frazell STONE POLISHER MACHINE Active NEURONTIN 300 MG CAP 1 cap by mouth three times daily for restless leg 06/22 GABAPENTIN 70221633835 No Longer Active Harinder Hernandez DO Active BENZONATATE 100 MG CAPS 1 cap po TID PRN BENZONATATE 41120281693 No Longer Active Harinder Hernandez DO Active MONTELUKAST SODIUM 10 MG TABS 1 tab po in the evening MONTELUKAST SODIUM 27393573185 No Longer Active Harinder Hernandez DO Active MUPIROCIN 2 % OINT apply to affected area BID x 14 days MUPIROCIN 54231498734 No Longer Active Harinder Hernandez DO Active TYLENOL EXTRA STRENGTH 500 MG TABS as needed ACETAMINOPHEN 40759116469 No Longer Active Harinder Hernandez DO Active PREDNISONE 10 MG TABS 1 tab po daily PREDNISONE 51748029787 No Longer Active Harinder Hernandez DO Active PREDNISONE 20 MG TAB 2 tabs daily for 4 days, 1 tab daily for 4 days, 1/2 tab daily for 4 days PREDNISONE 49998590506 No Longer Active Harinder Hernandez DO Active AZITHROMYCIN 250 MG TABS 2 po qd x 1 day, then 1 po qd x 4 days AZITHROMYCIN 31277861725 No Longer Active Harinder Hernandez DO Active PREDNISONE 20 MG TAB 3 tabs today, then 1 tab twice daily for 3 day, then one daily for three days PREDNISONE 20596101615 No Longer Active Harinder Hernandez DO Active NIFEDIAC CC 30 MG [id number] 1 tablet daily for raynaud's syndrome NIFEDIPINE 75469412262 No Longer Active Tawnya Pardo MA Active AMBIEN 10 MG TAB 1/2 tab by mouth at bedtime as needed for sleep ZOLPIDEM TARTRATE 82383081750 Active Kortney Mccain Active CLONAZEPAM 1 MG TABS 1 tablet at bedtime for insomnia and restless legs 09/14 CLONAZEPAM 03562519087 Active Harinder Hernandez DO Active CLONAZEPAM 0.5 MG TABS 1 tab po daily CLONAZEPAM 78014830430 No Longer Active Harinder Hernandez DO Active PREDNISONE 10 MG TAB 1 tablet daily for COPD PREDNISONE 74093666533 Active Tawnya Pardo MA Active PROAIR HFA 108 (90 BASE) MCG/ACT AERS 2 puffs four times a day as needed 2012 ALBUTEROL SULFATE 69665603931 Active Harinder Hernandez DO Active FLOVENT HFA 110 MCG/ACT AERO 2 puffs inhaled b.i.d. FLUTICASONE PROPIONATE HFA 64352412131 Active Kortney Mccain Active ACIPHEX 20 MG TBEC 1 tab po daily RABEPRAZOLE SODIUM 86290080634 Active Kaylah Newberry Active CLONAZEPAM 0.5 MG TABS 1 tab po daily CLONAZEPAM 0.5 MG TABS 154315 CLONAZEPAM Inactive PREDNISONE 20 MG TAB 3 tabs today, then 1 tab twice daily for 3 day, then one daily for three days PREDNISONE 20 MG TAB 575272 PREDNISONE Inactive PREDNISONE 20 MG TAB 2 tabs daily for 4 days, 1 tab daily for 4 days, 1/2 tab daily for 4 days PREDNISONE 20 MG TAB 333282 PREDNISONE Inactive PREDNISONE 10 MG TABS 1 tab po daily PREDNISONE 10 MG TABS 151234 PREDNISONE Inactive TYLENOL EXTRA STRENGTH 500 MG TABS as needed TYLENOL EXTRA STRENGTH 500 MG TABS 799307 ACETAMINOPHEN Inactive MUPIROCIN 2 % OINT apply to affected area BID x 14 days MUPIROCIN 2 % OINT 596999 MUPIROCIN Inactive MONTELUKAST SODIUM 10 MG TABS 1 tab po in the evening MONTELUKAST SODIUM 10 MG TABS 20010818 MONTELUKAST SODIUM Inactive BENZONATATE 100 MG CAPS 1 cap po TID PRN BENZONATATE 100 MG CAPS 509698 BENZONATATE Inactive NEURONTIN 300 MG CAP 1 cap by mouth three times daily for restless leg 06/22 NEURONTIN 300 MG CAP 881386 GABAPENTIN Inactive LEVAQUIN 500 MG TAB 1 tablet by mouth daily LEVAQUIN 500 MG TAB 152409 LEVOFLOXACIN Inactive PREDNISONE 20 MG TAB 1 TID x 2 days, then 1 BID x 3 days, then 1 Daily x 3 days, then stop PREDNISONE 20 MG TAB 315865 PREDNISONE Inactive POTASSIUM CHLORIDE ER 10 MEQ CR-TABS take 1 tab po daily POTASSIUM CHLORIDE ER 10 MEQ CR-TABS POTASSIUM CHLORIDE Inactive PREDNISONE 20 MG TAB 1 tab twice daily for 3 day, then one daily for three days PREDNISONE 20 MG TAB 705512 PREDNISONE Inactive TESSALON PERLES 100 MG CAP 1 to 2 tablets by mouth 3 times daily as needed for cough TESSALON PERLES 100 MG CAP 357327 BENZONATATE Inactive POTASSIUM CHLORIDE CR 10 MEQ CPCR 1 capsule by mouth daily 02/14 POTASSIUM CHLORIDE CR 10 MEQ CPCR POTASSIUM CHLORIDE Inactive NITROSTAT 0.4 MG SUBL 1 tab under tongueas needed for chest pain ( may take 3 total, 5 min apart, then call 911) NITROSTAT 0.4 MG SUBL 655704 NITROGLYCERIN Inactive LOVASTATIN 40 MG TABS 1 pill by mouth nightly for cholesterol LOVASTATIN 40 MG TABS 253049 LOVASTATIN Inactive CEFDINIR 300 MG ORAL CAPS take 1 cap po bid x 10 days CEFDINIR 300 MG ORAL CAPS 20021018 CEFDINIR Inactive ACEBUTOLOL HCL 200 MG CAPS 1 cap in the morning and 2 caps in the evening ACEBUTOLOL HCL 200 MG CAPS 738707 ACEBUTOLOL HCL Inactive VENTOLIN HFA 108 (90 BASE) MCG/ACT AERS 2 -4 puffs four times a day PRN 2013 VENTOLIN HFA 108 (90 BASE) MCG/ACT AERS ALBUTEROL SULFATE Inactive LEVAQUIN 500 MG ORAL TABS Take 1 tab po daily x 8 days LEVAQUIN 500 MG ORAL TABS 868993 LEVOFLOXACIN Inactive PREDNISONE 20 MG TAB 2 tabs daily for 4 days, 1 tab daily for 4 days, 1/2 tab daily for 4 days PREDNISONE 20 MG TAB 774178 PREDNISONE Inactive LOVASTATIN 40 MG ORAL TABS Take 1 tab po every hs LOVASTATIN 40 MG ORAL TABS 663517 LOVASTATIN Inactive DILAUDID 2 MG ORAL TABS Take 1/2 tab po every 4 hours as needed for pain 2014 DILAUDID 2 MG ORAL TABS 886881 HYDROMORPHONE HCL Inactive AMITRIPTYLINE HCL 25 MG ORAL TABS 1 q hs prn AMITRIPTYLINE HCL 25 MG ORAL TABS 507668 AMITRIPTYLINE HCL Inactive MECLIZINE HCL 25 MG TAB 1 tablet three times daily for 3 days, then 1/2 tab three times daily for 3 days. MECLIZINE HCL 25 MG TAB 542193 MECLIZINE HCL Inactive AMLODIPINE BESYLATE 5 MG ORAL TABS Take 1 tab po daily AMLODIPINE BESYLATE 5 MG ORAL TABS 808584 AMLODIPINE BESYLATE Inactive TOPIRAMATE 25 MG TABS 1 tab po BID TOPIRAMATE 25 MG TABS 844645 TOPIRAMATE Inactive PREDNISONE 20 MG TAB 1 tablet twice daily for 2 days, then 1 tablet once daily for 2 days PREDNISONE 20 MG TAB 382246 PREDNISONE Inactive PREDNISONE 20 MG TAB 1 tab twice daily for 3 day, then one daily for three days PREDNISONE 20 MG TAB 193334 PREDNISONE Inactive NIFEDIPINE ER 30 MG ORAL [id number] 1 daily NIFEDIPINE ER 30 MG ORAL [id number] NIFEDIPINE Inactive AZITHROMYCIN 250 MG TABS 2 po qd x 1 day, then 1 po qd x 4 days AZITHROMYCIN 250 MG TABS 9609381 AZITHROMYCIN Inactive AZITHROMYCIN 250 MG TABS 2 po qd x 1 day, then 1 po qd x 4 days AZITHROMYCIN 250 MG TABS 3191739 AZITHROMYCIN Inactive PREDNISONE 20 MG TAB 2 po qd x 5 days PREDNISONE 20 MG TAB 950042 PREDNISONE Inactive Vital Signs Date Name Value [...] Panel - Chemistry sodium, serum 137 mmol/L 481-395 8703/01/03 potassium, serum 3.4 mmol/L 3.5-5.2 chloride, serum [...] Magnesium - Chemistry cholesterol, serum 180 mg/dL 649-563 3376/08/08 triglyceride, serum, fasting 92 mg/dL 30-200 HDL cholesterol, serum 66 mg/dL 32-96 LDL cholesterol, serum 96 mg/dL 0-130 sodium, serum 142 mmol/L 419-205 3203/08/08 carbon dioxide, venous blood 27.4 mmol/L 21.0-32.0 [...] 10.0-20.0 Encounters Code Encounter Date Provider Facility CPT-59819 Level 3 Est. Patient 09:58:58 CDT Harinder Cr [facility] CPT-88945 Level 3 Est. Patient 12:37:21 CDT Harinder Cr [facility] CPT-72334 Level 3 Est. Patient 18:37:17 CDT Harinder Cr [facility] CPT-97845 Level 4 Est. Patient 11:15:54 CDT Nettie Newberry [facility] CPT-00929 Level 3 Est. Patient 16:42:24 CDT Harinder Cr [facility] CPT-26728 Level 3 Est. Patient 15:03:36 CDT Harinder Cr [facility] CPT-50265 Level 3 Est. Patient 15:03:20 CDT Harinder Cr [facility] CPT-75856 Level 3 Est. Patient 12:14:34 CDT Harinder Cr [facility] CPT-65200 Level 3 Est. Patient 13:47:15 CDT Harinder Hernandez [facility] CPT-82621 Level 3 Est. Patient 14:08:24 CDT Harinder Hernandez [facility] CPT-43509 Level 3 Est. Patient 10:07:15 CDT Harinder Hernandez [facility] CPT-65481 Level 3 Est. Patient 10:06:59 CDT Harinder Hernandez [facility] CPT-36214 Level 3 Est. Patient 15:53:29 CDT Jae Morgan [facility] CPT-97434 Level 3 Est. Patient 17:19:04 CDT Harinder Hernandez [facility] CPT-29985 Level 3 Est. Patient 11:13:01 CDT Harinder Hernandez [facility] CPT-59692 Level 3 Est. Patient 09:03:58 CDT Harinder Hernandez [facility] CPT-68841 Level 3 Est. Patient 14:46:45 WIRE TURNING MACHINE OPERATOR Harinder Hernandez [facility] CPT-41236 Level 3 Est. Patient 09:35:49 WIRE TURNING MACHINE OPERATOR Harinder Hernandez [facility] CPT-31971 Level 3 Est. Patient 09:29:37 WIRE TURNING MACHINE OPERATOR Harinder Hernandez [facility] CPT-06777 Level 3 Est. Patient 15:51:07 CDT Harinder Hernandez [facility] CPT-83190 Level 3 Est. Patient 18:13:13 CDT Harinder Hernandez [facility] CPT-80895 Level 3 Est. Patient 10:44:19 CDT Harinder Hernandez [facility] CPT-58498 Level 4 Est. Patient 10:07:19 WIRE TURNING MACHINE OPERATOR Harinder Hernandez [facility] CPT-22387 Level 3 Est. Patient 15:59:32 WIRE TURNING MACHINE OPERATOR Harinder Hernandez DO [facility] Procedures Code Procedure Name Date Entry Date Standard Description CPT-87967 BMP - LAB USE ONLY 16:45:09 WIRE TURNING MACHINE OPERATOR CPT-66310 Port a cath flush 12:00:13 WIRE TURNING MACHINE OPERATOR CPT-TCMM Transitional Care Mgmt-Moderate 11:20:16 WIRE TURNING MACHINE OPERATOR CPT-34310 First Vx - Ix admin for Medicare patients 17:35:15 CDT CPT-41874 Fluzone Preservative Free Intramuscular Suspension 17:35 :15 CDT CPT-96120 Microalbumin - LAB USE ONLY 11:52:05 CDT CPT-TCMM Transitional Care Mgmt-Moderate 11:33:57 CDT CPT-79334 No Charge Offi Visit 14:11:29 CDT CPT-32664 Magnesium - LAB USE ONLY 10:45:44 CDT CPT-75343 Lipid - LAB USE ONLY 10:45:44 CDT CPT-20888 CBC - LAB USE ONLY 10:45:44 CDT CPT-85393 Venipuncture Draw Fee 10:45:43 CDT CPT-86778 Venipuncture Draw Fee 18:21:27 CDT CPT-JTINJ Asp/Joint Injection 18:38:04 CDT CPT-68066 Immunization Each Additional Inj 17:38:04 CDT CPT-78300 Immunization Single Admin 17:38:04 CDT CPT-73038 Prevnar 13 17:38:04 CDT CPT-29304 Fluzone Quadrivalent preservative free (>=3yrs.) 17:38: 04 CDT CPT-33742 No Charge Offi Visit 11:14:03 CDT CPT-89780 Chest 2V Frontal and Lat 14:00:18 CDT CPT-OV Office Visit 16:10:28 CDT CPT-JTINJ Asp/Joint Injection 09:03:57 CDT CPT-Cryo Cryotherapy 09:35:49 WIRE TURNING MACHINE OPERATOR CPT-JTINJ Asp/Joint Injection 09:34:45 WIRE TURNING MACHINE OPERATOR CPT-J2930 Solu Medrol 125 mg (Methyl Prednisolone Sodium Succinate) 20:37:27 CDT CPT-33835 Abx/Therapy Injection 20:37:27 CDT CPT-25920 Port a cath flush 08:15:51 CDT CPT-55063 Port a cath flush 09:54:16 CDT CPT-52933 Port a cath flush 09:38:02 CDT CPT-71954 Port a cath flush 11:00:27 WIRE TURNING MACHINE OPERATOR
--- OUTSIDE RECORDS SUMMARY | 2017-12-29 02:52 | XMS REPORT | Clinical Summary ---
Author Author Admin, QIE Organization [facility] Address Unknown Phone Unavailable Allergies, Adverse Reactions, [...] tab po daily x 8 days LEVOFLOXACIN [id number] Active Tawnya Pardo MA Active PREDNISONE 20 MG TAB 2 tabs daily for 4 days, 1 tab daily for 4 days, 1/2 tab daily for 4 days PREDNISONE 00031546754 Active Harinder Hernandez DO Active LOVASTATIN 40 MG ORAL TABS Take 1 tab po every hs LOVASTATIN 11190117709 Active Johny Dawkins MD Active AMLODIPINE BESYLATE 5 MG ORAL TABS Take 1 tab po daily AMLODIPINE BESYLATE 38371417159 Active Tawnya Pardo MA Active VENTOLIN HFA 108 (90 BASE) MCG/ACT AERS 2 -4 puffs four times a day PRN 2013 ALBUTEROL SULFATE [id number] No Longer Active Jeri Sosa RPT,RMA Active DILAUDID 2 MG ORAL TABS Take 1/2 tab po every 4 hours as needed for pain 2014 HYDROMORPHONE HCL 42781530681 Active Harinder Hernandez DO Active ACEBUTOLOL HCL 200 MG CAPS 1 cap in the morning and 2 caps in the evening ACEBUTOLOL HCL 88608620849 No Longer Active Harinder Hernandez DO Active CEFDINIR 300 MG ORAL CAPS take 1 cap po bid x 10 days CEFDINIR 19978687538 No Longer Active Harinder Hernandez DO Active AMITRIPTYLINE HCL 25 MG ORAL TABS 1 q hs prn AMITRIPTYLINE HCL 93619451395 Active Tawnya Pardo MA Active LOVASTATIN 40 MG TABS 1 pill by mouth nightly for cholesterol LOVASTATIN 47702974475 No Longer Active Nettie Newberry APRN Active NITROSTAT 0.4 MG SUBL 1 tab under tongueas needed for chest pain ( may take 3 total, 5 min apart, then call 911) NITROGLYCERIN 76858112423 No Longer Active Nettie Newberry APRN Active POTASSIUM CHLORIDE CR 10 MEQ CPCR 1 capsule by mouth daily 02/14 POTASSIUM CHLORIDE 96325582376 No Longer Active Nettie Newberry APRN Active TESSALON PERLES 100 MG CAP 1 to 2 tablets by mouth 3 times daily as needed for cough BENZONATATE 60189806761 No Longer Active Nettie Newberry APRN Active THEOPHYLLINE ER 200 MG ORAL [id number] Take 1 tab every 12 hours THEOPHYLLINE 94837742793 Active Tawnya Pardo MA Active PREDNISONE 20 MG TAB 2 po qd x 5 days PREDNISONE 12475617652 No Longer Active Jae Morgan MD Active AZITHROMYCIN 250 MG TABS 2 po qd x 1 day, then 1 po qd x 4 days AZITHROMYCIN 76675534788 No Longer Active Jae Morgan MD Active PREDNISONE 20 MG TAB 1 tab twice daily for 3 day, then one daily for three days PREDNISONE 33264085032 No Longer Active Jae Morgan MD Active MECLIZINE HCL 25 MG TAB 1 tablet three times daily for 3 days, then 1/2 tab three times daily for 3 days. MECLIZINE HCL 90013829171 Active Harinder Hernandez DO Active SINGULAIR 10 MG TABS 1 pill by mouth every evening for breathing. MONTELUKAST SODIUM 54464198402 Active Tawnya Pardo MA Active TYLENOL 325 MG TAB 3 by mouth q4h as needed ACETAMINOPHEN 15228235440 Active Harinder Hernandez DO Active POTASSIUM CHLORIDE ER 10 MEQ CR-TABS take 1 tab po daily POTASSIUM CHLORIDE 70561616635 No Longer Active Harinder Hernandez DO Active PREDNISONE 20 MG TAB 1 TID x 2 days, then 1 BID x 3 days, then 1 Daily x 3 days, then stop PREDNISONE 12751000021 No Longer Active Jillina Frazell SOLUTION DIRECTOR Active LEVAQUIN 500 MG TAB 1 tablet by mouth daily LEVOFLOXACIN 40574751494 No Longer Active Jillina Frazell SOLUTION DIRECTOR Active NEURONTIN 300 MG CAP 1 cap by mouth three times daily for restless leg 06/22 GABAPENTIN 47634952730 No Longer Active Harinder Hernandez DO Active BENZONATATE 100 MG CAPS 1 cap po TID PRN BENZONATATE 70919001269 No Longer Active Harinder Hernandez DO Active MONTELUKAST SODIUM 10 MG TABS 1 tab po in the evening MONTELUKAST SODIUM 43407755200 No Longer Active Harinder Hernandez DO Active MUPIROCIN 2 % OINT apply to affected area BID x 14 days MUPIROCIN 07939277768 No Longer Active Harinder Hernandez DO Active TYLENOL EXTRA STRENGTH 500 MG TABS as needed ACETAMINOPHEN 30736500691 No Longer Active Harinder Hernandez DO Active PREDNISONE 10 MG TABS 1 tab po daily PREDNISONE 69616248047 No Longer Active Harinder Hernandez DO Active PREDNISONE 20 MG TAB 2 tabs daily for 4 days, 1 tab daily for 4 days, 1/2 tab daily for 4 days PREDNISONE 74191685778 No Longer Active Harinder W David DO Active AZITHROMYCIN 250 MG TABS 2 po qd x 1 day, then 1 po qd x 4 days AZITHROMYCIN 72613379414 No Longer Active Harinder Hernandez DO Active PREDNISONE 20 MG TAB 3 tabs today, then 1 tab twice daily for 3 day, then one daily for three days PREDNISONE 84097179634 No Longer Active Harinder Hernandez DO Active NIFEDIAC CC 30 MG [id number] 1 tablet daily for raynaud's syndrome NIFEDIPINE 31340633068 No Longer Active Tawnya Pardo MA Active AMBIEN 10 MG TAB 1/2 tab by mouth at bedtime as needed for sleep ZOLPIDEM TARTRATE 38036025272 Active Harinder Hernandez DO Active CLONAZEPAM 1 MG TABS 1 tablet at bedtime for insomnia and restless legs 09/14 CLONAZEPAM 92141493736 Active Harinder Hernandez DO Active CLONAZEPAM 0.5 MG TABS 1 tab po daily CLONAZEPAM 95736191338 No Longer Active Harinder Hernandez DO Active PREDNISONE 10 MG TAB 1 tablet daily for COPD PREDNISONE 11461472875 Active Tawnya Pardo MA Active PROAIR HFA 108 (90 BASE) MCG/ACT AERS 2 puffs four times a day as needed 2012 ALBUTEROL SULFATE 45062513142 Active Tawnya Pardo MA Active FLOVENT HFA 110 MCG/ACT AERO 2 puffs inhaled b.i.d. FLUTICASONE PROPIONATE HFA 47559293907 Active Tawnya Pardo MA Active EPIPEN 0.3 MG/0.3ML URIEL DIRECTED EPINEPHRINE Active Demetrius JOHNSON Active ACIPHEX 20 MG TBEC 1 tab po daily RABEPRAZOLE SODIUM 32212508662 Active Tawnya Pardo MA Active TOPIRAMATE 25 MG TABS 1 tab po BID TOPIRAMATE 88854660717 Active Tawnya Pardo MA Active CLONAZEPAM 0.5 MG TABS 1 tab po daily CLONAZEPAM 0.5 MG TABS 563438 CLONAZEPAM Inactive PREDNISONE 20 MG TAB 3 tabs today, then 1 tab twice daily for 3 day, then one daily for three days PREDNISONE 20 MG TAB 461652 PREDNISONE Inactive PREDNISONE 20 MG TAB 2 tabs daily for 4 days, 1 tab daily for 4 days, 1/2 tab daily for 4 days PREDNISONE 20 MG TAB 587452 PREDNISONE Inactive PREDNISONE 10 MG TABS 1 tab po daily PREDNISONE 10 MG TABS 740002 PREDNISONE Inactive TYLENOL EXTRA STRENGTH 500 MG TABS as needed TYLENOL EXTRA STRENGTH 500 MG TABS 740033 ACETAMINOPHEN Inactive MUPIROCIN 2 % OINT apply to affected area BID x 14 days MUPIROCIN 2 % OINT 715673 MUPIROCIN Inactive MONTELUKAST SODIUM 10 MG TABS 1 tab po in the evening MONTELUKAST SODIUM 10 MG TABS 598972 MONTELUKAST SODIUM Inactive BENZONATATE 100 MG CAPS 1 cap po TID PRN BENZONATATE 100 MG CAPS 096766 BENZONATATE Inactive NEURONTIN 300 MG CAP 1 cap by mouth three times daily for restless leg 06/22 NEURONTIN 300 MG CAP 540961 GABAPENTIN Inactive LEVAQUIN 500 MG TAB 1 tablet by mouth daily LEVAQUIN 500 MG TAB 672835 LEVOFLOXACIN Inactive PREDNISONE 20 MG TAB 1 TID x 2 days, then 1 BID x 3 days, then 1 Daily x 3 days, then stop PREDNISONE 20 MG TAB 324144 PREDNISONE Inactive POTASSIUM CHLORIDE ER 10 MEQ CR-TABS take 1 tab po daily POTASSIUM CHLORIDE ER 10 MEQ CR-TABS POTASSIUM CHLORIDE Inactive PREDNISONE 20 MG TAB 1 tab twice daily for 3 day, then one daily for three days PREDNISONE 20 MG TAB 452045 PREDNISONE Inactive TESSALON PERLES 100 MG CAP 1 to 2 tablets by mouth 3 times daily as needed for cough TESSALON PERLES 100 MG CAP 014856 BENZONATATE Inactive POTASSIUM CHLORIDE CR 10 MEQ [...] nightly for cholesterol LOVASTATIN 40 MG TABS 619350 LOVASTATIN Inactive CEFDINIR 300 MG ORAL CAPS take 1 cap po bid x 10 days CEFDINIR 300 MG ORAL CAPS 950139 CEFDINIR Inactive ACEBUTOLOL HCL 200 MG CAPS 1 cap in the morning and 2 caps in the evening ACEBUTOLOL HCL 200 MG CAPS 593174 ACEBUTOLOL HCL Inactive VENTOLIN HFA 108 (90 BASE) MCG/ACT AERS 2 -4 puffs four times a day PRN 2013 VENTOLIN HFA 108 (90 BASE) MCG/ACT AERS ALBUTEROL SULFATE Inactive AZITHROMYCIN 250 MG TABS 2 po qd x 1 day, then 1 po qd x 4 days AZITHROMYCIN 250 MG TABS 5896157 AZITHROMYCIN Inactive AZITHROMYCIN 250 MG TABS 2 po qd x 1 day, then 1 po qd x 4 days AZITHROMYCIN 250 MG TABS 4389856 AZITHROMYCIN Inactive PREDNISONE 20 MG TAB 2 po qd x 5 days PREDNISONE 20 MG TAB 540580 PREDNISONE Inactive Vital Signs Date Name Value [...] Panel - Chemistry sodium, serum 138 mmol/L 544-345 7573/09/24 potassium, serum 3.5 mmol/L 3.5-5.2 chloride, serum [...] [phone] Encounters Code Encounter Date Provider Facility CPT-48143 Level 3 Est. Patient 15:03:36 CDT Harinder Hernandez [facility] CPT-03827 Level 3 Est. Patient 15:03:20 CDT Harinder Hernandez [facility] CPT-84525 Level 3 Est. Patient 12:14:34 CDT Harinder Hernandez [facility] CPT-65161 Level 3 Est. Patient 13:47:15 CDT Harinder Hernandez [facility] CPT-31902 Level 3 Est. Patient 14:08:24 CDT Harinder Hernandez [facility] CPT-92565 Level 3 Est. Patient 10:07:15 CDT Harinder Hernandez [facility] CPT-34939 Level 3 Est. Patient 10:06:59 CDT Harinder Hernandez [facility] CPT-79946 Level 3 Est. Patient 15:53:29 CDT Jae Morgan MD [facility] CPT-00861 Level 3 Est. Patient 17:19:04 CDT Harinder Hernandez [facility] CPT-03963 Level 3 Est. Patient 11:13:01 CDT Harinder Hernandez [facility] CPT-68898 Level 3 Est. Patient 09:03:58 CDT Harinder Hernanedz [facility] CPT-16691 Level 3 Est. Patient 14:46:45 COMPOSITE ENGINEER Harinder Hernandez [facility] CPT-39449 Level 3 Est. Patient 09:35:49 COMPOSITE ENGINEER Harinder Hernandez [facility] CPT-98702 Level 3 Est. Patient 09:29:37 COMPOSITE ENGINEER Harinder Hernandez [facility] CPT-19084 Level 3 Est. Patient 15:51:07 CDT Harinder Hernandez [facility] CPT-70201 Level 3 Est. Patient 18:13:13 CDT Harinder Hernandez [facility] CPT-26652 Level 3 Est. Patient 10:44:19 CDT Harinder Hernandez [facility] CPT-13025 Level 4 Est. Patient 10:07:19 COMPOSITE ENGINEER Harinder Hernandez [facility] CPT-70036 Level 3 Est. Patient 15:59:32 COMPOSITE ENGINEER Harinder Cr [facility] Procedures Code Procedure Name Date Entry Date Standard Description CPT-30608 Immunization Each Additional Inj 17:38:04 CDT CPT-29684 Immunization Single Admin 17:38:04 CDT CPT-69932 Prevnar 13 17:38:04 CDT CPT-65748 Fluzone Quadrivalent preservative free (>=3yrs.) 17:38: 04 CDT CPT-91094 No Charge Offi Visit 11:14:03 CDT CPT-50990 Chest 2V Frontal and Lat 14:00:18 CDT CPT-OV Office Visit 16:10:28 CDT CPT-JTINJ Asp/Joint Injection 09:03:57 CDT CPT-Cryo Cryotherapy 09:35:49 COMPOSITE ENGINEER CPT-JTINJ Asp/Joint Injection 09:34:45 COMPOSITE ENGINEER CPT-J2930 Solu Medrol 125 mg (Methyl Prednisolone Sodium Succinate) 20:37:27 CDT CPT-98844 Abx/Therapy Injection 20:37:27 CDT CPT-18281 Port a cath flush 08:15:51 CDT CPT-55944 Port a cath flush 09:54:16 CDT CPT-42335 Port a cath flush 09:38:02 CDT CPT-66204 Port a cath flush 11:00:27 COMPOSITE ENGINEER
--- OUTSIDE RECORDS SUMMARY | 2017-12-29 02:54 | XMS REPORT | Clinical Summary ---
Author Author Admin, QIE Organization [facility] [employer] Address Unknown Phone Unavailable Allergies, Adverse [...] TABLET 1 tablet by mouth daily SPIRONOLACTONE [id number] No Longer Active Jeri Nieto Active PREDNISONE 20 MG ORAL TABLET 2 tablets by mouth today, then 1 tablet by mouth days 2-3 PREDNISONE 19146298059 No Longer Active Jeri Nieto Active NITROSTAT 0.4 MG SUBLINGUAL TABLET SUBLINGUAL 1 tab SL q5min PRN chest pain NITROGLYCERIN 56230572633 Active Meenu Alejo LPN Active THEOPHYLLINE ER 300 MG ORAL TABLET EXTENDED RELEASE 12 HOUR 1 po BID THEOPHYLLINE 27043413320 Active Kortney Mccain Active POTASSIUM CHLORIDE ER 20 MEQ ORAL TABLET EXTENDED RELEASE 1 po q day POTASSIUM CHLORIDE 19209799215 Active Kortney Mccain Active POTASSIUM CHLORIDE 20 MEQ ORAL PACKET 1 tab po q day POTASSIUM CHLORIDE 13118182701 No Longer Active Kortney Mccain Active POTASSIUM CHLORIDE ER 10 MEQ ORAL CAPSULE EXTENDED RELEASE 1 capsule BID 2016 POTASSIUM CHLORIDE 55020442018 No Longer Active Kortney Mccain Active LASIX 20 MG ORAL TABLET 1 tablet by mouth every morning FUROSEMIDE 20792621101 No Longer Active Kortney Mccain Active FLUOXETINE HCL 10 MG ORAL CAPSULE 1 po qd for depression/anxiety FLUOXETINE HCL 74999518300 Active Meenu Alejo LPN Active VOLTAREN 1 % TRANSDERMAL GEL apply q 6-8 hour to left arm as needed for pain DICLOFENAC SODIUM 83145788053 Active Kortney Mccain Active ALBUTEROL SULFATE (2.5 MG/3ML) 0.083% INHALATION NEBULIZATION SOLUTION 1 vial neb q 4hrs for severe asthma. 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 NIFEDIPINE 48650382431 Active Kortney Mccain Active AMLODIPINE BESYLATE 5 MG ORAL TABLET 1 tablet by mouth daily 2016 AMLODIPINE BESYLATE 16364803799 No Longer Active Harinder Hernandez DO Active TOPAMAX 25 MG ORAL TABLET 1 tab po BID TOPIRAMATE 19824432894 Active Kortney Mccain Active FLUTICASONE PROPIONATE 50 MCG/ACT NASAL SUSPENSION 2 sprays per nostril daily PRN Allergies FLUTICASONE PROPIONATE 33551456728 Active Meenu Alejo LPN Active NIFEDIPINE ER 30 MG ORAL TABLET EXTENDED RELEASE 24 HOUR 1 daily NIFEDIPINE 05914996064 No Longer Active Harinder Hernandez DO Active FLOVENT HFA 110 MCG/ACT INHALATION AEROSOL 2 puffs inhaled b.i.d. FLUTICASONE PROPIONATE HFA 58416757939 Active Harinder Hernandez DO Active EPIPEN 2-BRUNA 0.3 MG/0.3ML INJECTION SOLUTION AUTO-INJECTOR 1 INJ NEEDED EPINEPHRINE 39192227647 Active Meenu Alejo LPN Active PREDNISONE 20 MG ORAL TABLET 1 tab twice daily for 3 day, then one daily for three days PREDNISONE 96179115896 No Longer Active Harinder Hernanedz DO Active PREDNISONE 20 MG ORAL TABLET 1 tablet twice daily for 2 days, then 1 tablet once daily for 2 days PREDNISONE 94973057490 No Longer Active Harinder Hernandez DO Active ASMANEX 120 METERED DOSES 220 MCG/INH INHALATION AEROSOL POWDER BREATH ACTIVATED 2 puffs orally twice daily MOMETASONE FUROATE 54670333917 Active Jeri Sosa LPN Active TOPIRAMATE 25 MG ORAL TABLET 1 tab po BID TOPIRAMATE 47627405708 No Longer Active Nettie Newberry APRN Active AMLODIPINE BESYLATE 5 MG ORAL TABLET Take 1 tab po daily AMLODIPINE BESYLATE 80184571814 No Longer Active Nettie Newberry APRN Active MECLIZINE HCL 25 MG ORAL TABLET 1 tablet three times daily for 3 days, then 1/ 2 tab three times daily for 3 days. MECLIZINE HCL 49613247198 No Longer Active Nettie Newberry APRN Active AMITRIPTYLINE HCL 25 MG ORAL TABLET 1 q hs prn AMITRIPTYLINE HCL 83824817957 No Longer Active Nettie Newberry APRN Active DILAUDID 2 MG ORAL TABLET Take 1/2 tab po every 4 hours as needed for pain HYDROMORPHONE HCL 76320224184 No Longer Active Nettie Newberry APRN Active CLOPIDOGREL BISULFATE 75 MG ORAL TABLET 1 tab by mouth once daily CLOPIDOGREL BISULFATE 50042079770 Active Meenu Alejo LPN Active ATORVASTATIN CALCIUM 10 MG ORAL TABLET 1 at bedtime ATORVASTATIN CALCIUM 81090806737 Active Kortney Mccain Active LOVASTATIN 40 MG ORAL TABLET Take 1 tab po every hs LOVASTATIN 88392040879 No Longer Active Harinder Hernandez DO Active PREDNISONE 20 MG ORAL TABLET 2 tabs daily for 4 days, 1 tab daily for 4 days, 1/2 tab daily for 4 days PREDNISONE 54188059956 No Longer Active Harinder Hernandez DO Active LEVAQUIN 500 MG ORAL TABLET Take 1 tab po daily x 8 days LEVOFLOXACIN 92548269708 No Longer Active Harinder Hernandez DO Active VENTOLIN HFA 108 (90 Base) MCG/ACT INHALATION AEROSOL SOLUTION 2 -4 puffs four times a day PRN ALBUTEROL SULFATE 74121098874 No Longer Active Jeri Sosa LPN Active ACEBUTOLOL HCL 200 MG ORAL CAPSULE 1 cap in the morning and 2 caps in the evening ACEBUTOLOL HCL 08122038273 No Longer Active Harinder Hernandez DO Active CEFDINIR 300 MG ORAL CAPSULE take 1 cap po bid x 10 days CEFDINIR 53575819643 No Longer Active Harinder Hernandez DO Active LOVASTATIN 40 MG ORAL TABLET 1 pill by mouth nightly for cholesterol LOVASTATIN 73192510290 No Longer Active Nettie Newberry APRN Active NITROSTAT 0.4 MG SUBLINGUAL TABLET SUBLINGUAL 1 tab under tongueas needed for chest pain ( may take 3 total, 5 min apart, then call 911) NITROGLYCERIN 50561776808 No Longer Active Nettie Newberry APRN Active POTASSIUM CHLORIDE ER 10 MEQ ORAL CAPSULE EXTENDED RELEASE 1 capsule by mouth daily POTASSIUM CHLORIDE 08021334344 No Longer Active Nettie Newberry APRN Active TESSALON PERLES 100 MG ORAL CAPSULE 1 to 2 tablets by mouth 3 times daily as needed for cough BENZONATATE 96239118531 No Longer Active Nettie Newberry APRN Active PREDNISONE 20 MG ORAL TABLET 2 po qd x 5 days PREDNISONE 02356932481 No Longer Active Jae Morgan MD Active AZITHROMYCIN 250 MG ORAL TABLET 2 po qd x 1 day, then 1 po qd x 4 days 12/30 AZITHROMYCIN 64807079064 No Longer Active Jae Morgan MD Active PREDNISONE 20 MG ORAL TABLET 1 tab twice daily for 3 day, then one daily for three days PREDNISONE 98776687846 No Longer Active Jae Morgan MD Active SINGULAIR 10 MG ORAL TABLET 1 pill by mouth every evening for breathing. 2014 MONTELUKAST SODIUM 23053603310 Active Meenu Alejo LPN Active TYLENOL 325 MG ORAL TABLET 3 by mouth q4h as needed ACETAMINOPHEN 38190721822 Active Harinder Hernandez DO Active POTASSIUM CHLORIDE ER 10 MEQ ORAL TABLET EXTENDED RELEASE take 1 tab po daily POTASSIUM CHLORIDE 31887367936 No Longer Active Harinder Hernandez DO Active PREDNISONE 20 MG ORAL TABLET 1 TID x 2 days, then 1 BID x 3 days, then 1 Daily x 3 days, then stop PREDNISONE 88084695845 No Longer Active Jillina Frazellor MCCRAY Active LEVAQUIN 500 MG ORAL TABLET 1 tablet by mouth daily LEVOFLOXACIN 60554218684 No Longer Active Jillina Frazell RETAIL MERCHANDISER Active NEURONTIN 300 MG ORAL CAPSULE 1 cap by mouth three times daily for restless leg GABAPENTIN 88143032563 No Longer Active Harinder Hernandez DO Active BENZONATATE 100 MG ORAL CAPSULE 1 cap po TID PRN BENZONATATE 59292323082 No Longer Active Harinder Hernandez DO Active MONTELUKAST SODIUM 10 MG ORAL TABLET 1 tab po in the evening 2014 MONTELUKAST SODIUM 97330952137 No Longer Active Harinder Hernandez DO Active MUPIROCIN 2 % EXTERNAL OINTMENT apply to affected area BID x 14 days MUPIROCIN 82008489276 No Longer Active Harinder Hernandez DO Active TYLENOL EXTRA STRENGTH 500 MG ORAL TABLET as needed ACETAMINOPHEN 19643564982 No Longer Active Harinder Hernandez DO Active PREDNISONE 10 MG ORAL TABLET 1 tab po daily PREDNISONE 20289586563 No Longer Active Harinder Hernandez DO Active PREDNISONE 20 MG ORAL TABLET 2 tabs daily for 4 days, 1 tab daily for 4 days, 1/2 tab daily for 4 days PREDNISONE 15515320626 No Longer Active Harinder Hernandez DO Active AZITHROMYCIN 250 MG ORAL TABLET 2 po qd x 1 day, then 1 po qd x 4 days 04/06 AZITHROMYCIN 54330635910 No Longer Active Harinder Hernandez DO Active PREDNISONE 20 MG ORAL TABLET 3 tabs today, then 1 tab twice daily for 3 day, then one daily for three days PREDNISONE 65954537061 No Longer Active Harinder Hernandez DO Active NIFEDIAC CC 30 MG ORAL TABLET EXTENDED RELEASE 24 HOUR 1 tablet daily for raynaud's syndrome NIFEDIPINE 50615862272 No Longer Active Tawnya Pardo MA Active AMBIEN 10 MG ORAL TABLET 1/2 tab by mouth at bedtime as needed for sleep 2013 ZOLPIDEM TARTRATE 23006643154 Active Meenu Alejo LPN Active CLONAZEPAM 1 MG ORAL TABLET 1 tablet at bedtime for insomnia and restless legs CLONAZEPAM 96678421685 Active Meenu Alejo LPN Active CLONAZEPAM 0.5 MG ORAL TABLET 1 tab po daily CLONAZEPAM 28753870015 No Longer Active Harinder Hernandez DO Active PREDNISONE 10 MG ORAL TABLET 1 tablet daily for COPD PREDNISONE 59954290655 Active Kortney Mccain Active PROAIR HFA 108 (90 Base) MCG/ACT INHALATION AEROSOL SOLUTION 2 puffs four times a day as needed ALBUTEROL SULFATE 05363946949 Active Harinder Hernandez DO Active FLOVENT HFA 110 MCG/ACT INHALATION AEROSOL 2 puffs inhaled b.i.d. FLUTICASONE PROPIONATE HFA 59724705796 Active Kortney Mccain Active ACIPHEX 20 MG ORAL TABLET DELAYED RELEASE 1 tab po daily RABEPRAZOLE SODIUM 96353666389 Active Meenu Alejo LPN Active CLONAZEPAM 0.5 MG ORAL TABLET 1 tab po daily CLONAZEPAM 0.5 MG ORAL TABLET 625679 CLONAZEPAM Inactive PREDNISONE 20 MG ORAL TABLET 3 tabs today, then 1 tab twice daily for 3 day, then one daily for three days PREDNISONE 20 MG ORAL TABLET 357230 PREDNISONE Inactive PREDNISONE 20 MG ORAL TABLET 2 tabs daily for 4 days, 1 tab daily for 4 days, 1/2 tab daily for 4 days PREDNISONE 20 MG ORAL TABLET 791014 PREDNISONE Inactive PREDNISONE 10 MG ORAL TABLET 1 tab po daily PREDNISONE 10 MG ORAL TABLET 310737 PREDNISONE Inactive TYLENOL EXTRA STRENGTH 500 MG ORAL TABLET as needed TYLENOL EXTRA STRENGTH 500 MG ORAL TABLET 592092 ACETAMINOPHEN Inactive MUPIROCIN 2 % EXTERNAL OINTMENT apply to affected area BID x 14 days MUPIROCIN 2 % EXTERNAL OINTMENT 776224 MUPIROCIN Inactive MONTELUKAST SODIUM 10 MG ORAL TABLET 1 tab po in the evening 2014 MONTELUKAST SODIUM 10 MG ORAL TABLET 318106 MONTELUKAST SODIUM Inactive BENZONATATE 100 MG ORAL CAPSULE 1 cap po TID PRN BENZONATATE 100 MG ORAL CAPSULE 551403 BENZONATATE Inactive NEURONTIN 300 MG ORAL CAPSULE 1 cap by mouth three times daily for restless leg NEURONTIN 300 MG ORAL CAPSULE 018267 GABAPENTIN Inactive LEVAQUIN 500 MG ORAL TABLET 1 tablet by mouth daily LEVAQUIN 500 MG ORAL TABLET 974679 LEVOFLOXACIN Inactive PREDNISONE 20 MG ORAL TABLET 1 TID x 2 days, then 1 BID x 3 days, then 1 Daily x 3 days, then stop PREDNISONE 20 MG ORAL TABLET 304290 PREDNISONE Inactive POTASSIUM CHLORIDE ER 10 MEQ ORAL TABLET EXTENDED RELEASE take 1 tab po daily POTASSIUM CHLORIDE ER 10 MEQ ORAL TABLET EXTENDED RELEASE POTASSIUM CHLORIDE Inactive PREDNISONE 20 MG ORAL TABLET 1 tab twice daily for 3 day, then one daily for three days PREDNISONE 20 MG ORAL TABLET 669750 PREDNISONE Inactive TESSALON PERLES 100 MG ORAL CAPSULE 1 to 2 tablets by mouth 3 times daily as needed for cough TESSALON PERLES 100 MG ORAL CAPSULE 257508 BENZONATATE Inactive POTASSIUM CHLORIDE ER 10 MEQ ORAL CAPSULE EXTENDED RELEASE 1 capsule by mouth daily POTASSIUM CHLORIDE ER 10 MEQ ORAL CAPSULE EXTENDED RELEASE POTASSIUM CHLORIDE Inactive NITROSTAT 0.4 MG SUBLINGUAL TABLET SUBLINGUAL 1 tab under tongueas needed for chest pain ( may take 3 total, 5 min apart, then call 911) NITROSTAT 0.4 MG SUBLINGUAL TABLET SUBLINGUAL 969486 NITROGLYCERIN Inactive LOVASTATIN 40 MG ORAL TABLET 1 pill by mouth nightly for cholesterol LOVASTATIN 40 MG ORAL TABLET 428841 LOVASTATIN Inactive CEFDINIR 300 MG ORAL CAPSULE take 1 cap po bid x 10 days CEFDINIR 300 MG ORAL CAPSULE 343794 CEFDINIR Inactive ACEBUTOLOL HCL 200 MG ORAL CAPSULE 1 cap in the morning and 2 caps in the evening ACEBUTOLOL HCL 200 MG ORAL CAPSULE 868712 ACEBUTOLOL HCL Inactive VENTOLIN HFA 108 (90 Base) MCG/ACT INHALATION AEROSOL SOLUTION 2 -4 puffs four times a day PRN VENTOLIN HFA 108 (90 Base) MCG/ ACT INHALATION AEROSOL SOLUTION ALBUTEROL SULFATE Inactive LEVAQUIN 500 MG ORAL TABLET Take 1 tab po daily x 8 days LEVAQUIN 500 MG ORAL TABLET 477870 LEVOFLOXACIN Inactive PREDNISONE 20 MG ORAL TABLET 2 tabs daily for 4 days, 1 tab daily for 4 days, 1/2 tab daily for 4 days PREDNISONE 20 MG ORAL TABLET 661785 PREDNISONE Inactive LOVASTATIN 40 MG ORAL TABLET Take 1 tab po every hs LOVASTATIN 40 MG ORAL TABLET 826940 LOVASTATIN Inactive DILAUDID 2 MG ORAL TABLET Take 1/2 tab po every 4 hours as needed for pain DILAUDID 2 MG ORAL TABLET 682796 HYDROMORPHONE HCL Inactive AMITRIPTYLINE HCL 25 MG ORAL TABLET 1 q hs prn AMITRIPTYLINE HCL 25 MG ORAL TABLET 753349 AMITRIPTYLINE HCL Inactive MECLIZINE HCL 25 MG ORAL TABLET 1 tablet three times daily for 3 days, then 1/ 2 tab three times daily for 3 days. MECLIZINE HCL 25 MG ORAL TABLET 250509 MECLIZINE HCL Inactive AMLODIPINE BESYLATE 5 MG ORAL TABLET Take 1 tab po daily AMLODIPINE BESYLATE 5 MG ORAL TABLET 915910 AMLODIPINE BESYLATE Inactive TOPIRAMATE 25 MG ORAL TABLET 1 tab po BID TOPIRAMATE 25 MG ORAL TABLET 240850 TOPIRAMATE Inactive PREDNISONE 20 MG ORAL TABLET 1 tablet twice daily for 2 days, then 1 tablet once daily for 2 days PREDNISONE 20 MG ORAL TABLET 742026 PREDNISONE Inactive PREDNISONE 20 MG ORAL TABLET 1 tab twice daily for 3 day, then one daily for three days PREDNISONE 20 MG ORAL TABLET 272233 PREDNISONE Inactive NIFEDIPINE ER 30 MG ORAL TABLET EXTENDED RELEASE 24 HOUR 1 daily NIFEDIPINE ER 30 MG ORAL TABLET EXTENDED RELEASE 24 HOUR NIFEDIPINE Inactive AMLODIPINE BESYLATE 5 MG ORAL TABLET 1 tablet by mouth daily 2016 AMLODIPINE BESYLATE 5 MG ORAL TABLET 123844 AMLODIPINE BESYLATE Inactive LASIX 20 MG ORAL TABLET 1 tablet by mouth every morning LASIX 20 MG ORAL TABLET 024281 FUROSEMIDE Inactive POTASSIUM CHLORIDE ER 10 MEQ ORAL CAPSULE EXTENDED RELEASE 1 capsule BID 2016 POTASSIUM CHLORIDE ER 10 MEQ ORAL CAPSULE EXTENDED RELEASE POTASSIUM CHLORIDE Inactive POTASSIUM CHLORIDE 20 MEQ ORAL PACKET 1 tab po q day POTASSIUM CHLORIDE 20 MEQ ORAL PACKET 4246413 POTASSIUM CHLORIDE Inactive PREDNISONE 20 MG ORAL TABLET 2 tablets by mouth today, then 1 tablet by mouth days 2-3 PREDNISONE 20 MG ORAL TABLET 029033 PREDNISONE Inactive SPIRONOLACTONE 25 MG ORAL TABLET 1 tablet by mouth daily SPIRONOLACTONE 25 MG ORAL TABLET 585410 SPIRONOLACTONE Inactive AZITHROMYCIN 250 MG ORAL TABLET 2 po qd x 1 day, then 1 po qd x 4 days 04/06 AZITHROMYCIN 250 MG ORAL TABLET 953589 AZITHROMYCIN Inactive AZITHROMYCIN 250 MG ORAL TABLET 2 po qd x 1 day, then 1 po qd x 4 days 12/30 AZITHROMYCIN 250 MG ORAL TABLET 873549 AZITHROMYCIN Inactive PREDNISONE 20 MG ORAL TABLET 2 po qd x 5 days PREDNISONE 20 MG ORAL TABLET 904936 PREDNISONE Inactive Vital Signs Date Name Value [...] 3.2 mmol/L 3.5-5.2 sodium, serum 140 mmol/L 176-132 9805/08/21 sodium, serum 140 mmol/L 056-378 0461/08/21 potassium, serum 3.8 mmol/L 3.5-5.2 chloride, serum [...] ... - Chemistry sodium, serum 141 mmol/L 797-612 6403/08/07 creatinine, serum 0.97 mg/dL 0.60-1.30 alanine aminotransferase [...] 1.40 mg/dL 0.00-1.00 cholesterol, serum 192 mg/dL 129-266 4799/10/19 triglyceride, serum, fasting 71 mg/dL 30-200 HDL cholesterol, serum 72 mg/dL 32-60 LDL cholesterol, serum 106 mg/dL 0-130 Lab Report: Rapid Strep - Lab Microbial identification kit, rapid strep method Negative Negative Lab Report: THEOPHYLLINE - Toxicology theophylline level, serum 3.1 ug/mL 10.0-20.0 Encounters Code Encounter Date Provider Facility CPT-87919 Level 4 Est. Patient 10:17:51 PERSONAL COMPUTER NETWORK ENGINEER Harinder Cr [facility] CPT-46825 Level 3 Est. Patient 12:36:15 PERSONAL COMPUTER NETWORK ENGINEER Harinder Cr [facility] CPT-15880 Level 3 Est. Patient 15:14:45 PERSONAL COMPUTER NETWORK ENGINEER Harinder Cr [facility] CPT-66154 Level 4 Est. Patient 14:45:25 CDT Harinder Cr [facility] CPT-01902 Level 4 Est. Patient 09:15:13 CDT Harinder Cr [facility] CPT-06989 Level 3 Est. Patient 11:51:58 CDT Harinder Cr [facility] CPT-04695 Level 3 Est. Patient 11:30:05 CDT Harinder Cr [facility] CPT-25801 Level 4 Est. Patient 10:19:23 CDT Harinder Cr [facility] CPT-40910 Level 3 Est. Patient 09:58:58 CDT Harinder Cr [facility] CPT-64739 Level 3 Est. Patient 12:37:21 CDT Harindre Cr [facility] CPT-82437 Level 3 Est. Patient 18:37:17 CDT Harinder Hernandez [facility] CPT-13178 Level 4 Est. Patient 11:15:54 CDT Nettie Newberry APRN [facility] CPT-72816 Level 3 Est. Patient 16:42:24 CDT Harinder Henrandez [facility] CPT-76406 Level 3 Est. Patient 15:03:36 CDT Harinder Hernandez [facility] CPT-19664 Level 3 Est. Patient 15:03:20 CDT Harinder Hernandez [facility] CPT-57705 Level 3 Est. Patient 12:14:34 CDT Harinder Hernandez [facility] CPT-59899 Level 3 Est. Patient 13:47:15 CDT Harinder Hernandez [facility] CPT-41687 Level 3 Est. Patient 14:08:24 CDT Harinder Hernandez [facility] CPT-95545 Level 3 Est. Patient 10:07:15 CDT Harinder Hernandez [facility] CPT-88694 Level 3 Est. Patient 10:06:59 CDT Harinder Hernandez [facility] CPT-44988 Level 3 Est. Patient 15:53:29 CDT Jae Morgan MD [facility] CPT-88350 Level 3 Est. Patient 17:19:04 CDT Harinder Hernandez [facility] CPT-01235 Level 3 Est. Patient 11:13:01 CDT Harinder Shaye Hernandez [facility] CPT-42253 Level 3 Est. Patient 09:03:58 CDT Harinder Hernandez [facility] CPT-65847 Level 3 Est. Patient 14:46:45 PERSONAL COMPUTER NETWORK ENGINEER Harinder Cr David [facility] CPT-65739 Level 3 Est. Patient 09:35:49 PERSONAL COMPUTER NETWORK ENGINEER Harinder W [facility] CPT-59960 Level 3 Est. Patient 09:29:37 PERSONAL COMPUTER NETWORK ENGINEER Harinder Hernandez [facility] CPT-35194 Level 3 Est. Patient 15:51:07 CDT Harinder Hernandez [facility] CPT-27915 Level 3 Est. Patient 18:13:13 CDT Harinder Hernandez [facility] CPT-38088 Level 3 Est. Patient 10:44:19 CDT Harinder Hernandez [facility] CPT-43160 Level 4 Est. Patient 10:07:19 PERSONAL COMPUTER NETWORK ENGINEER Harinder Cr [facility] CPT-14869 Level 3 Est. Patient 15:59:32 PERSONAL COMPUTER NETWORK ENGINEER Harinder Hernandez [facility] Procedures Code Procedure Name Date Entry Date Standard Description CPT-G0009 Administration of Pneumococcal Vaccine 10:33:25 PERSONAL COMPUTER NETWORK ENGINEER CPT-08260 Pneumovax 23 Injection Injectable 25 MCG/0.5ML 10:33:25 PERSONAL COMPUTER NETWORK ENGINEER CPT-52882 First Vx - Ix admin for Medicare patients 10:33:25 PERSONAL COMPUTER NETWORK ENGINEER CPT-05079 Fluzone Quadrivalent Intramuscular Suspension 0.5 ML 10: 33:25 PERSONAL COMPUTER NETWORK ENGINEER CPT-Cryo Cryotherapy 10:17:51 PERSONAL COMPUTER NETWORK ENGINEER CPT-G0438 Initial Annual Wellness Exam 10:08:59 PERSONAL COMPUTER NETWORK ENGINEER CPT-89341 Abd compl w upright - XRAY USE ONLY 14:48:09 CDT 02/18 CPT-09667 Port a cath flush 13:46:05 CDT CPT-59744 Hip, complete, 2-3 views - XRAY USE ONLY 10:28:40 CDT CPT-12445 BMP - LAB USE ONLY 16:45:09 PERSONAL COMPUTER NETWORK ENGINEER CPT-29123 Port a cath flush 12:00:13 PERSONAL COMPUTER NETWORK ENGINEER CPT-TCMM Transitional Care Mgmt-Moderate 11:20:16 PERSONAL COMPUTER NETWORK ENGINEER CPT-13162 First Vx - Ix admin for Medicare patients 17:35:15 CDT CPT-80679 Fluzone Preservative Free Intramuscular Suspension 17:35 :15 CDT CPT-47871 Microalbumin - LAB USE ONLY 11:52:05 CDT CPT-TCMM Transitional Care Mgmt-Moderate 11:33:57 CDT CPT-46148 No Charge Offi Visit 14:11:29 CDT CPT-22269 Magnesium - LAB USE ONLY 10:45:44 CDT CPT-21799 Lipid - LAB USE ONLY 10:45:44 CDT CPT-33568 CBC - LAB USE ONLY 10:45:44 CDT CPT-43581 Venipuncture Draw Fee 10:45:43 CDT CPT-87028 Venipuncture Draw Fee 18:21:27 CDT CPT-JTINJ Asp/Joint Injection 18:38:04 CDT CPT-79161 Immunization Each Additional Inj 17:38:04 CDT CPT-96254 Immunization Single Admin 17:38:04 CDT CPT-50016 Prevnar 13 17:38:04 CDT CPT-95966 Fluzone Quadrivalent preservative free (>=3yrs.) 17:38: 04 CDT CPT-36200 No Charge Offi Visit 11:14:03 CDT CPT-74215 Chest 2V Frontal and Lat 14:00:18 CDT CPT-OV Office Visit 16:10:28 CDT CPT-JTINJ Asp/Joint Injection 09:03:57 CDT CPT-Cryo Cryotherapy 09:35:49 PERSONAL COMPUTER NETWORK ENGINEER CPT-JTINJ Asp/Joint Injection 09:34:45 PERSONAL COMPUTER NETWORK ENGINEER CPT-J2930 Solu Medrol 125 mg (Methyl Prednisolone Sodium Succinate) 20:37:27 CDT CPT-33764 Abx/Therapy Injection 20:37:27 CDT CPT-02802 Port a cath flush 08:15:51 CDT CPT-88327 Port a cath flush 09:54:16 CDT CPT-78326 Port a cath flush 09:38:02 CDT CPT-27864 Port a cath flush 11:00:27 PERSONAL COMPUTER NETWORK ENGINEER
--- OUTSIDE RECORDS SUMMARY | 2017-12-29 02:56 | XMS REPORT | Clinical Summary ---
[...] MG/0.3ML INJ SOAJ 1 INJ NEEDED EPINEPHRINE [id number] Active Tawnya Pardo MA Active PREDNISONE 20 MG TAB 1 tab twice daily for 3 day, then one daily for three days PREDNISONE 38784414710 No Longer Active Harinder Hernandez DO Active PREDNISONE 20 MG TAB 1 tablet twice daily for 2 days, then 1 tablet once daily for 2 days PREDNISONE 18337608664 No Longer Active Harinder Hernandez DO Active ASMANEX 120 METERED DOSES 220 MCG/INH INH AEPB 2 puffs orally twice daily MOMETASONE FUROATE 57284688216 Active Jeri Sosa RPT,RMA Active NIFEDIPINE ER 30 MG ORAL [id number] 1 daily NIFEDIPINE 83572462011 Active Tawnya Pardo MA Active TOPIRAMATE 25 MG TABS 1 tab po BID TOPIRAMATE 19581538985 No Longer Active Nettie Newberry APRN Active AMLODIPINE BESYLATE 5 MG ORAL TABS Take 1 tab po daily AMLODIPINE BESYLATE 61684338704 No Longer Active Nettie Newberry APRN Active MECLIZINE HCL 25 MG TAB 1 tablet three times daily for 3 days, then 1/2 tab three times daily for 3 days. MECLIZINE HCL 28394029608 No Longer Active Nettie Newberry APRN Active AMITRIPTYLINE HCL 25 MG ORAL TABS 1 q hs prn AMITRIPTYLINE HCL 37906750022 No Longer Active Nettie Newberry APRN Active DILAUDID 2 MG ORAL TABS Take 1/2 tab po every 4 hours as needed for pain 2014 HYDROMORPHONE HCL 46132923624 No Longer Active Nettie Newberry APRN Active CLOPIDOGREL BISULFATE 75 MG ORAL TABS 1 tab by mouth once daily CLOPIDOGREL BISULFATE 52160677827 Active Tawnya Pardo MA Active ATORVASTATIN CALCIUM 10 MG ORAL TABS 1 at bedtime ATORVASTATIN CALCIUM 29788616599 Active Tawnya Pardo MA Active LOVASTATIN 40 MG ORAL TABS Take 1 tab po every hs LOVASTATIN 94823899535 No Longer Active Harinder Hernandez DO Active PREDNISONE 20 MG TAB 2 tabs daily for 4 days, 1 tab daily for 4 days, 1/2 tab daily for 4 days PREDNISONE 88515231161 No Longer Active Harinder Hernandez DO Active LEVAQUIN 500 MG ORAL TABS Take 1 tab po daily x 8 days LEVOFLOXACIN 09479536413 No Longer Active Harinder Hernandez DO Active VENTOLIN HFA 108 (90 BASE) MCG/ACT AERS 2 -4 puffs four times a day PRN 2013 ALBUTEROL SULFATE 95892585039 No Longer Active Jeri Sosa RPT,RMA Active ACEBUTOLOL HCL 200 MG CAPS 1 cap in the morning and 2 caps in the evening ACEBUTOLOL HCL 65737098308 No Longer Active Harinder Hernandez DO Active CEFDINIR 300 MG ORAL CAPS take 1 cap po bid x 10 days CEFDINIR 46745266359 No Longer Active Harinder Hernandez DO Active LOVASTATIN 40 MG TABS 1 pill by mouth nightly for cholesterol LOVASTATIN 00595681032 No Longer Active Nettie Newberry APRN Active NITROSTAT 0.4 MG SUBL 1 tab under tongueas needed for chest pain ( may take 3 total, 5 min apart, then call 911) NITROGLYCERIN 05674574250 No Longer Active Nettie Newberry APRN Active POTASSIUM CHLORIDE CR 10 MEQ CPCR 1 capsule by mouth daily 02/14 POTASSIUM CHLORIDE 01541440448 No Longer Active Nettie Newberry APRN Active TESSALON PERLES 100 MG CAP 1 to 2 tablets by mouth 3 times daily as needed for cough BENZONATATE 63419195778 No Longer Active Nettie Newberry APRN Active THEOPHYLLINE ER 200 MG ORAL [id number] Take 1 tab every 12 hours THEOPHYLLINE 89401347680 Active Tawnya Pardo MA Active PREDNISONE 20 MG TAB 2 po qd x 5 days PREDNISONE 73874090202 No Longer Active Jae Morgan MD Active AZITHROMYCIN 250 MG TABS 2 po qd x 1 day, then 1 po qd x 4 days AZITHROMYCIN 91988568242 No Longer Active Jae Morgan MD Active PREDNISONE 20 MG TAB 1 tab twice daily for 3 day, then one daily for three days PREDNISONE 49145556505 No Longer Active Jae Morgan MD Active SINGULAIR 10 MG TABS 1 pill by mouth every evening for breathing. MONTELUKAST SODIUM 95528941712 Active Tawnya Pardo MA Active TYLENOL 325 MG TAB 3 by mouth q4h as needed ACETAMINOPHEN 48981393845 Active Harinder Hernandez DO Active POTASSIUM CHLORIDE ER 10 MEQ CR-TABS take 1 tab po daily POTASSIUM CHLORIDE 59486261633 No Longer Active Harinder Hernandez DO Active PREDNISONE 20 MG TAB 1 TID x 2 days, then 1 BID x 3 days, then 1 Daily x 3 days, then stop PREDNISONE 79112649594 No Longer Active John Montemayor APRN Active LEVAQUIN 500 MG TAB 1 tablet by mouth daily LEVOFLOXACIN 75856435484 No Longer Active Jillkvng Montemayor APRN Active NEURONTIN 300 MG CAP 1 cap by mouth three times daily for restless leg 06/22 GABAPENTIN 13636418911 No Longer Active Harinder Hernandez DO Active BENZONATATE 100 MG CAPS 1 cap po TID PRN BENZONATATE 04976683170 No Longer Active Harinder Hernandez DO Active MONTELUKAST SODIUM 10 MG TABS 1 tab po in the evening MONTELUKAST SODIUM 01109168944 No Longer Active Harinder Hernandez DO Active MUPIROCIN 2 % OINT apply to affected area BID x 14 days MUPIROCIN 70522482055 No Longer Active Harinder Hernandez DO Active TYLENOL EXTRA STRENGTH 500 MG TABS as needed ACETAMINOPHEN 29201458895 No Longer Active Harinder Hernandez DO Active PREDNISONE 10 MG TABS 1 tab po daily PREDNISONE 31137775566 No Longer Active Harinder Hernandez DO Active PREDNISONE 20 MG TAB 2 tabs daily for 4 days, 1 tab daily for 4 days, 1/2 tab daily for 4 days PREDNISONE 10152735695 No Longer Active Harinder Hernandez DO Active AZITHROMYCIN 250 MG TABS 2 po qd x 1 day, then 1 po qd x 4 days AZITHROMYCIN 17255745374 No Longer Active Harinder Hernandez DO Active PREDNISONE 20 MG TAB 3 tabs today, then 1 tab twice daily for 3 day, then one daily for three days PREDNISONE 50661900669 No Longer Active Harinder Hernandez DO Active NIFEDIAC CC 30 MG [id number] 1 tablet daily for raynaud's syndrome NIFEDIPINE 24387243492 No Longer Active Tawnya Pardo MA Active AMBIEN 10 MG TAB 1/2 tab by mouth at bedtime as needed for sleep ZOLPIDEM TARTRATE 08211281399 Active Harinder Hernandez DO Active CLONAZEPAM 1 MG TABS 1 tablet at bedtime for insomnia and restless legs 09/14 CLONAZEPAM 97652720121 Active Kaylah Newberry Active CLONAZEPAM 0.5 MG TABS 1 tab po daily CLONAZEPAM 40106747679 No Longer Active Harinder Hernandez DO Active PREDNISONE 10 MG TAB 1 tablet daily for COPD PREDNISONE 51411212192 Active Tawnya Pardo MA Active PROAIR HFA 108 (90 BASE) MCG/ACT AERS 2 puffs four times a day as needed 2012 ALBUTEROL SULFATE 94644304345 Active Tawnya Pardo MA Active FLOVENT HFA 110 MCG/ACT AERO 2 puffs inhaled b.i.d. FLUTICASONE PROPIONATE HFA 23234675495 Active Tawnya Pardo MA Active ACIPHEX 20 MG TBEC 1 tab po daily RABEPRAZOLE SODIUM 38138714371 Active Tawnya Pardo MA Active CLONAZEPAM 0.5 MG TABS 1 tab po daily CLONAZEPAM 0.5 MG TABS 098879 CLONAZEPAM Inactive PREDNISONE 20 MG TAB 3 tabs today, then 1 tab twice daily for 3 day, then one daily for three days PREDNISONE 20 MG TAB 782723 PREDNISONE Inactive PREDNISONE 20 MG TAB 2 tabs daily for 4 days, 1 tab daily for 4 days, 1/2 tab daily for 4 days PREDNISONE 20 MG TAB 798843 PREDNISONE Inactive PREDNISONE 10 MG TABS 1 tab po daily PREDNISONE 10 MG TABS 944226 PREDNISONE Inactive TYLENOL EXTRA STRENGTH 500 MG TABS as needed TYLENOL EXTRA STRENGTH 500 MG TABS 039770 ACETAMINOPHEN Inactive MUPIROCIN 2 % OINT apply to affected area BID x 14 days MUPIROCIN 2 % OINT 197185 MUPIROCIN Inactive MONTELUKAST SODIUM 10 MG TABS 1 tab po in the evening MONTELUKAST SODIUM 10 MG TABS 276295 MONTELUKAST SODIUM Inactive BENZONATATE 100 MG CAPS 1 cap po TID PRN BENZONATATE 100 MG CAPS 495379 BENZONATATE Inactive NEURONTIN 300 MG CAP 1 cap by mouth three times daily for restless leg 06/22 NEURONTIN 300 MG CAP 520601 GABAPENTIN Inactive LEVAQUIN 500 MG TAB 1 tablet by mouth daily LEVAQUIN 500 MG TAB 335248 LEVOFLOXACIN Inactive PREDNISONE 20 MG TAB 1 TID x 2 days, then 1 BID x 3 days, then 1 Daily x 3 days, then stop PREDNISONE 20 MG TAB 055467 PREDNISONE Inactive POTASSIUM CHLORIDE ER 10 MEQ CR-TABS take 1 tab po daily POTASSIUM CHLORIDE ER 10 MEQ CR-TABS POTASSIUM CHLORIDE Inactive PREDNISONE 20 MG TAB 1 tab twice daily for 3 day, then one daily for three days PREDNISONE 20 MG TAB 152609 PREDNISONE Inactive TESSALON PERLES 100 MG CAP 1 to 2 tablets by mouth 3 times daily as needed for cough TESSALON PERLES 100 MG CAP 745343 BENZONATATE Inactive POTASSIUM CHLORIDE CR 10 MEQ CPCR 1 capsule by mouth daily 02/14 POTASSIUM CHLORIDE CR 10 MEQ CPCR POTASSIUM CHLORIDE Inactive NITROSTAT 0.4 MG SUBL 1 tab under tongueas needed for chest pain ( may take 3 total, 5 min apart, then call 911) NITROSTAT 0.4 MG SUBL 470479 NITROGLYCERIN Inactive LOVASTATIN 40 MG TABS 1 pill by mouth nightly for cholesterol LOVASTATIN 40 MG TABS 626214 LOVASTATIN Inactive CEFDINIR 300 MG ORAL CAPS take 1 cap po bid x 10 days CEFDINIR 300 MG ORAL CAPS 139203 CEFDINIR Inactive ACEBUTOLOL HCL 200 MG CAPS 1 cap in the morning and 2 caps in the evening ACEBUTOLOL HCL 200 MG CAPS 864338 ACEBUTOLOL HCL Inactive VENTOLIN HFA 108 (90 BASE) MCG/ACT AERS 2 -4 puffs four times a day PRN 2013 VENTOLIN HFA 108 (90 BASE) MCG/ACT AERS ALBUTEROL SULFATE Inactive LEVAQUIN 500 MG ORAL TABS Take 1 tab po daily x 8 days LEVAQUIN 500 MG ORAL TABS 682444 LEVOFLOXACIN Inactive PREDNISONE 20 MG TAB 2 tabs daily for 4 days, 1 tab daily for 4 days, 1/2 tab daily for 4 days PREDNISONE 20 MG TAB 635986 PREDNISONE Inactive LOVASTATIN 40 MG ORAL TABS Take 1 tab po every hs LOVASTATIN 40 MG ORAL TABS 731717 LOVASTATIN Inactive DILAUDID 2 MG ORAL TABS Take 1/2 tab po every 4 hours as needed for pain 2014 DILAUDID 2 MG ORAL TABS 628228 HYDROMORPHONE HCL Inactive AMITRIPTYLINE HCL 25 MG ORAL TABS 1 q hs prn AMITRIPTYLINE HCL 25 MG ORAL TABS 201733 AMITRIPTYLINE HCL Inactive MECLIZINE HCL 25 MG TAB 1 tablet three times daily for 3 days, then 1/2 tab three times daily for 3 days. MECLIZINE HCL 25 MG TAB 820500 MECLIZINE HCL Inactive AMLODIPINE BESYLATE 5 MG ORAL TABS Take 1 tab po daily AMLODIPINE BESYLATE 5 MG ORAL TABS 659070 AMLODIPINE BESYLATE Inactive TOPIRAMATE 25 MG TABS 1 tab po BID TOPIRAMATE 25 MG TABS 564526 TOPIRAMATE Inactive PREDNISONE 20 MG TAB 1 tablet twice daily for 2 days, then 1 tablet once daily for 2 days PREDNISONE 20 MG TAB 376348 PREDNISONE Inactive PREDNISONE 20 MG TAB 1 tab twice daily for 3 day, then one daily for three days PREDNISONE 20 MG TAB 795127 PREDNISONE Inactive AZITHROMYCIN 250 MG TABS 2 po qd x 1 day, then 1 po qd x 4 days AZITHROMYCIN 250 MG TABS 0052494 AZITHROMYCIN Inactive AZITHROMYCIN 250 MG TABS 2 po qd x 1 day, then 1 po qd x 4 days AZITHROMYCIN 250 MG TABS 6508555 AZITHROMYCIN Inactive PREDNISONE 20 MG TAB 2 po qd x 5 days PREDNISONE 20 MG TAB 835793 PREDNISONE Inactive Vital Signs Date Name Value [...] Magnesium - Chemistry cholesterol, serum 180 mg/dL 942-979 5374/08/08 triglyceride, serum, fasting 92 mg/dL 30-200 HDL cholesterol, serum 66 mg/dL 32-96 LDL cholesterol, serum 96 mg/dL 0-130 sodium, serum 142 mmol/L 375-352 1937/08/08 carbon dioxide, venous blood 27.4 mmol/L 21.0-32.0 [...] 10.0-20.0 Encounters Code Encounter Date Provider Facility CPT-02341 Level 3 Est. Patient 09:58:58 CDT Harinder Cr [facility] CPT-54871 Level 3 Est. Patient 12:37:21 CDT Harinder Cr [facility] CPT-29309 Level 3 Est. Patient 18:37:17 CDT Harinder Cr [facility] CPT-98496 Level 4 Est. Patient 11:15:54 CDT Nettie Newberry [facility] CPT-43112 Level 3 Est. Patient 16:42:24 CDT Harinder Hrenandez [facility] CPT-89747 Level 3 Est. Patient 15:03:36 CDT Harinder Hernandez [facility] CPT-85414 Level 3 Est. Patient 15:03:20 CDT Harinder Hernandez [facility] CPT-73381 Level 3 Est. Patient 12:14:34 CDT Harinder Hernandez [facility] CPT-60295 Level 3 Est. Patient 13:47:15 CDT Harinder Hernandez [facility] CPT-99273 Level 3 Est. Patient 14:08:24 CDT Harinder Hernandez [facility] CPT-63522 Level 3 Est. Patient 10:07:15 CDT Harinder Hernandez [facility] CPT-12573 Level 3 Est. Patient 10:06:59 CDT Harinder Hernandez [facility] CPT-92656 Level 3 Est. Patient 15:53:29 CDT Jae Morgan [facility] CPT-19987 Level 3 Est. Patient 17:19:04 CDT Harinder Hernandez [facility] CPT-64640 Level 3 Est. Patient 11:13:01 CDT Harinder Hernandez [facility] CPT-71651 Level 3 Est. Patient 09:03:58 CDT Harinder Hernandez [facility] CPT-76722 Level 3 Est. Patient 14:46:45 PIPEFITTER Harinder Hernandez [facility] CPT-92558 Level 3 Est. Patient 09:35:49 PIPEFITTER Harinder Shaye Hernandez [facility] CPT-87788 Level 3 Est. Patient 09:29:37 PIPEFITTER Harinder Shaye Hernandez [facility] CPT-71876 Level 3 Est. Patient 15:51:07 CDT Harinder Hernandez [facility] CPT-88249 Level 3 Est. Patient 18:13:13 CDT Harinder Hernandez [facility] CPT-85797 Level 3 Est. Patient 10:44:19 CDT Harinder Hernandez [facility] CPT-90533 Level 4 Est. Patient 10:07:19 PIPEFITTER Harinder Cr [facility] CPT-69913 Level 3 Est. Patient 15:59:32 PIPEFITTER Harinder Cr [facility] Procedures Code Procedure Name Date Entry Date Standard Description CPT-TCMM Transitional Care Mgmt-Moderate 11:33:57 CDT CPT-29393 No Charge Offi Visit 14:11:29 CDT CPT-86981 Magnesium - LAB USE ONLY 10:45:44 CDT CPT-21076 Lipid - LAB USE ONLY 10:45:44 CDT CPT-14018 CBC - LAB USE ONLY 10:45:44 CDT CPT-46313 Venipuncture Draw Fee 10:45:43 CDT CPT-41773 Venipuncture Draw Fee 18:21:27 CDT CPT-JTINJ Asp/Joint Injection 18:38:04 CDT CPT-67193 Immunization Each Additional Inj 17:38:04 CDT CPT-22256 Immunization Single Admin 17:38:04 CDT CPT-52389 Prevnar 13 17:38:04 CDT CPT-89992 Fluzone Quadrivalent preservative free (>=3yrs.) 17:38: 04 CDT CPT-74618 No Charge Offi Visit 11:14:03 CDT CPT-48918 Chest 2V Frontal and Lat 14:00:18 CDT CPT-OV Office Visit 16:10:28 CDT CPT-JTINJ Asp/Joint Injection 09:03:57 CDT CPT-Cryo Cryotherapy 09:35:49 PIPEFITTER CPT-JTINJ Asp/Joint Injection 09:34:45 PIPEFITTER CPT-J2930 Solu Medrol 125 mg (Methyl Prednisolone Sodium Succinate) 20:37:27 CDT CPT-50033 Abx/Therapy Injection 20:37:27 CDT CPT-37659 Port a cath flush 08:15:51 CDT CPT-10210 Port a cath flush 09:54:16 CDT CPT-55898 Port a cath flush 09:38:02 CDT CPT-20516 Port a cath flush 11:00:27 PIPEFITTER
--- OUTSIDE RECORDS SUMMARY | 2017-12-29 02:58 | XMS REPORT ---
Author Author [facility] [employer] Medical Staff Organization [facility] Address [address] [place] [id number] Phone [phone] Care Team Providers Care Cartridge Loader Name Role Phone HARINDER HERNANDEZ DO PP [phone] HARINDER HERNANDEZ DO PP [phone] Summary purpose TRANSITION OF CARE AUTO GENERATION Chief Complaint and Reason for Visit Admit Diagnosis 1 CHEST PAIN RO NAUSEA VOMITING ABD PAIN Admit Diagnosis 2 HEADACHE Problem list No authorized problems tracked for continuity of care are available for this visit. Encounters The following conditions tracked for encounter diagnoses were recorded for this visit: Finding or Diagnosis Status Certainty Chronicity Onset *CHEST PAIN Active Medications Discharge Medications Status Medication Directions Current acebutolol 200 mg capsule 200 milligram (s) oral Twice a day 1 cap in am and 2 cap in pm Current Aciphex 20 mg tablet,delayed release 20 milligram (s) oral Daily Current amitriptyline 25 mg tablet 1 tab(s) oral oral As Needed for headache Current epinephrine HCl 0.01 mg/mL injection syringe 0.3 milligram (s) injection inj As Needed for severe dizziness Current Flovent 110 mcg/actuation aerosol inhaler 2 puff(s) inhalation Twice a day Current Klonopin 0.5 mg tablet 1 tab(s) oral Bedtime daily Current Nifediac CC 30 mg tablet,extended release 1 tab(s) oral Daily Current prednisone 10 mg tablet 1 tab(s) oral Daily Current ProAir HFA 90 mcg/actuation aerosol inhaler 2 puff(s) inhl 4 xDaily As Needed for shortness of air Current Singulair 10 mg tablet 1 tab(s) oral Daily Current Severo-24 200 mg capsule,extended release 1 tab(s) oral Twice a day Current topiramate 25 mg tablet 1 tab(s) oral Twice a day Current Tylenol 325 mg tablet 3 tab(s) oral oral Q4 Hours As Needed for headache Stopped Ventolin HFA 90 mcg/actuation aerosol inhaler 2 puff(s) inhalation 4 xDaily As Needed Allergies, adverse reactions, alerts Allergen Category Ingredient [...] Relevant diagnostic tests and/or laboratory data RESULTS Routine Urinalysis [id number]:00 Result Normal Range Units Color YELLOW Clarity Clear Specific Delta 1.005 1.003-1.035 pH 7.0 4.5-8.0 Glucose NEGATIVE Bilirubin NEGATIVE Ketones NEGATIVE Protein NEGATIVE Urobilinogen 0.2 0-0.2 E.U./dL Nitrites NEGATIVE Blood 2+ Leukocytes NEGATIVE WBCs 0-5 RBCs 0-5 Squamous Epithelial Few Bacteria Rare Amount Drug Screen In House [id number]:50:00 Result Normal Range Units Amphetamine Negative Negative Barbiturates Negative Negative Benzodiazepines Negative Negative Cannabinoids Negative Negative *Triage TOXis a medical drug screen to be used only for assessment and treatment of patients. This drug screen cannot be used for employment or legal purposes. Cocaine Negative Negative Mamp/MDMA Negative Negative Methadone Negative Negative Opiates Negative Negative Phencyclidine Negative Negative Tricyclic Antidepressants Negative Negative Chemistry :25:00 Result Normal Range Units Sodium 140 134-145 mEq/l Potassium L 3.4 3.5-5.1 mEq/l Chloride 103 98-107 mEq/l CO2 25.0 22-28 mEq/l Glucose 81 70-105 mg/dl BUN 10 7-18 mg/dl Creatinine H 1.20 0.6-1.0 mg/dl Calcium 9.2 8.4-10.2 mg/dl TP - Total Protein 7.4 6.0-8.3 g/dl Albumin 3.8 3.5-5 g/dl Bilirubin - Total 0.7 0.1-1.0 mg/dl AST 20 10-42 IU/L ALT 20 12-65 IU/L ALP H 87 25-72 IU/L Lipase 120 73-393 U/L Osmolality L 277.5 280-300 mOsm/L Albumin/Globulin Ratio 1.1 0-8 Anion GAP 12.0 8-16 BUN/Creatinine Ratio L 8.3 10-20 BNP- Brain Natriuretic Peptide 87 0-900 pg/ml Estimated GFR L 46 >=60 mL/min/1.7 Hematology [id number]:25:00 Result Normal Range Units WBC 7.1 4.8-10.8 103/uL RBC 4.2 4.2-5.4 106/uL HGB 13.1 12.0-16.0 g/dl HCT 38.7 36.9-47.0 % MCV 92.6 81-99 FL MCH H 31.3 27-31 pg MCHC 33.9 33-37 g/dl RDW 12.0 11.5-15.5 % PLT 215 130-400 103/uL MPV 10.0 7.3-10.4 FL Neutro % 57.0 40-70 % Lymph % 33.6 20-40 % [place] % 7.6 0-10.0 % Eos % 0.8 0-7.0 % Baso % 0.6 0-2 % Neutro # 4.0 1.5-7.5 103/uL Lymph # 2.4 0.9-4.0 103/uL [place] # 0.5 0-0.8 103/uL Eos # 0.1 0-0.6 103/uL Baso # 0.0 0-0.1 103/uL Body Fluid [id number]:50:00 Result Normal Range Units pH 7.0 4.5-8.0 Cardiac [id number]:05:00 Result Normal Range Units Troponin I < 0.04 0.0-0.4 ng/ml Patient samples may contain heterophilic antibodies that could react in immunoassays to give falsely elevated or depressed results. This Dimension assay has been designed to minimize interference from heterophilic antibodies. Nevertheless, complete elimination of this interference from all patient specimens cannot be guaranteed. A test result that is inconsistent with the clinical picture and patient history should be interpreted with caution. [id number]:55:00 Result Normal Range Units Troponin I < 0.04 0.0-0.4 ng/ml Patient samples may contain heterophilic antibodies that could react in immunoassays to give falsely elevated or depressed results. This Dimension assay has been designed to minimize interference from heterophilic antibodies. Nevertheless, complete elimination of this interference from all patient specimens cannot be guaranteed. A test result that is inconsistent with the clinical picture and patient history should be interpreted with caution. [id number]:25:00 Result Normal Range Units Troponin I < 0.04 0.0-0.4 ng/ml Patient samples may contain heterophilic antibodies that could react in immunoassays to give falsely elevated or depressed results. This Dimension assay has been designed to minimize interference from heterophilic antibodies. Nevertheless, complete elimination of this interference from all patient specimens cannot be guaranteed. A test result that is inconsistent with the clinical picture and patient history should be interpreted with caution. Radiology Results [id number]:00 Chest X-Ray - 2 View PACs Image DATE OF EXAM: 2014 RAD 0300-CHEST XRAY 2 VIEW : RADIOLOGY REPORT DATE OF SERVICE:02/15/15 HISTORY:Patient has shortness of air. CHEST 2 VIEWS 1535 HOURS Port-A-Cath is in place on the left with tip in superior vena cava. There is an electrical structure over the medial left chest. Pulmonary vascularity is normal. The heart size is normal. No effusion is seen. IMPRESSION:No acute process or change from 08/02/14. DO KARRI Ham/guilherme 02/15/2015 15:51:00 / 02/15/2015 19:42:39 cc:Dr. Harinder Hernandez This document has been electronically Signed by: On: DATE OF EXAM: 2014 RAD 0300-CHEST XRAY 2 VIEW : RADIOLOGY REPORT DATE OF SERVICE:02/15/15 HISTORY:Patient has shortness of air. CHEST 2 VIEWS 1535 HOURS Port-A-Cath is in place on the left with tip in superior vena cava. There is an electrical structure over the medial left chest. Pulmonary vascularity is normal. The heart size is normal. No effusion is seen. IMPRESSION:No acute process or change from 08/02/14. Miryam Alvarado DO MW/pb 02/15/2015 15:51:00 / 02/15/2015 19:42:39 cc:Dr. Harinder Hernandez This document has been electronically Signed by: MIRYAM ALVARADO DO On: 20148:01A CHEST PAIN RO NAUSEA VOMITING HEADACHE Result Amended on 2015-02-16 at 08:01:29. Previous status was [place]. CHEST PAIN RO NAUSEA VOMITING HEADACHE [id number]:00 Result Normal Range Units MPV 10.0 7.3-10.4 FL History of procedures No procedures recorded for this patient visit. Functional status Functional Status Finding Observation Time Hearing Prob Loc none :58 Vision Problems yes :58 Vision Correct Dev glasses :58 Ambulation Asst Dev none :58 Range of Motion full :01 Muscle Strength RUE 5 ROM full resist :01 Muscle Strength RLE 5 ROM full resist :01 Muscle Strength LUE 5 ROM full resist [id number]:01 Muscle Strength LLE 5 ROM full resist [id number] Transfers assist x 1 :01 Ambulation in room :01 Balance steady :01 Bathing Assistance none :58 Eating Assistance none :58 Dressing Assistance none :58 Toileting Assistance none :58 Transfer Assistance none :58 Decline Slf Care/Mob no :58 Phys Cond Stable yes :58 Nutrition normal : Diet clear Comment: actual This result is a modification to a previously-entered result. It was modified on 02/16/15 at 22:23 by : Oral Cavity moist and intact : Teeth dentures : Dental Hygiene good : Abdomen Appearance flat : Abdomen soft : Bowel Sounds present : NG Tube no : Feeding Tube none : Wallace no : Cont Bladder Irr no : Ostomy no : Stool normal Comment: per pt report; none noted at this time : Urination normal : Urine Clarity clear : Urine Color yellow : Quality sym/unlabored : Cough non-productive : Secretions no : Breath Sounds RUL clear : Breath Sounds RML clear : Breath Sounds RLL clear : Breath Sounds LASHELL clear : Breath Sounds LLL clear : Airway natural : Chest Tube no : Oxygen no :10 Oxygen Flow Rate ra [id number] C-PAP no :01 BI-PAP no : Temp >100.4 no : Temp <96.8 no : Chills with rigors no : HR > 90bpm no :01 Respirations > 20 no : Systolic <90 no : headache stiff neck no : WBC > [id number] no : WBC < 4000 no : Rapid Resp no : VAD Type rosa-cath : VAD Location L chest : VAD Site Info discontinued : VAD Site Appearance WNL : VAD Site Color clear : VAD Site Patent no : VAD Dressing Type occlusive : Nursing Note Pt left unit per wheelchair accompanied by staff et friend to personal car to go home. Pt's belongings including purse, cell phone, and education materials were sent home as well. Pt left in stable condition et denies further needs/ concerns. :05 Cognitive Status Finding Observation Time Oriented To Date 5 Yes :[address] 5 Yes :58 Name 3 Objects 3 Yes :58 Name Object in Rm 2 Yes :58 Recall 3 Objects 3 Yes :58 Repeats a Phrase 1 Yes :58 Follows Verbal Direc 3 Yes :58 Follows Written Dire 1 Yes :58 Write a Sentance 1 Yes :58 Draw an Object 1 Yes [id number] Mini Mental Total 25 points :58 Less than 20 Phys not applicable :58 Learning Ability comprehends well : Neurological no :00 Psychological yes :00 Physical no :00 Hearing no :00 Thermodynamic Physicist Needed no : Sign Language no : Emotional no : Vision yes :00 Laguage no :00 Financial no : Vital signs Type Value Date Respiration Rate 20breaths per minute : Pulse 60beats per minute :10 Oxygen Saturation 100% :10 BP Systolic 145mmHg :10 BP Diastolic 68mmHg :10 Temperature 97.6F :10 Height 64inches :12 Weight 130.5LB :12 Social history Type Value Smoking Status NEVER SMOKER Treatment Plan No treatment plan text is available for this visit. Hospital discharge instructions Discharge Date/Time 02/16/15 @ 2100 Accompanied By Staff et friend Relationship other (explain) Dismissal Condition good Disposition on DC home Valuables no Valuable Type billfold/purse Comment: purse, cell phone Valuables Returned T patient DC Inst/Educ Give yes Exit Care Educ Given yes Med/Side Effects Rev yes DC Med Rec Rev yes Immun Indicated no PNE Vac none Flu Vac 2013 Tetanus Vac unsure Medical Equipment N/A Diet Explained yes Follow up appt call for appointment Follow Up Appt D/T 5-7 days
--- OUTSIDE RECORDS SUMMARY | 2017-12-29 02:58 | XMS REPORT | Clinical Summary ---
Author Author Admin, QIE Organization [facility] Address Unknown Phone Unavailable Allergies, Adverse Reactions, [...] unspecified site Anxiety depression 300.4 Active Harinder Hernnadez DO Dysthymic disorder Abdominal pain 789.00 Resolved Jeri Sosa Scribe Abdominal pain, unspecified site Right leg pain 729.5 Resolved Jeri Sosa Scribe Pain in limb Viral upper respiratory tract infection 465.9 Resolved Jeri Sosa Scribe Acute upper respiratory infections of unspecified site U R I 465.9 Active Jeri Sosa Scribe Acute upper respiratory infections of unspecified site Gastroenteritis, viral, acute 008.8 Active Jeri Ssoa Scribe Intestinal infection due to other organism, [...] Inactive Kortney Mccain Edema leg ICD-782.3 Inactive Korntey Mccain 08/22 Abdominal pain ICD-789.00 Inactive Kortney Mccain Right leg pain ICD-729.5 Inactive Kortney Mccain Viral upper respiratory tract infection ICD-465.9 Inactive Kortney Mccain Medication List Medication Instructions Start Date Stop Date Generic Name NDC Status Provider Patient Instruction SPIRONOLACTONE 25 MG ORAL TABLET 1 tablet by mouth daily SPIRONOLACTONE 92131879869 No Longer Active Jeri Nieto Active PREDNISONE 20 MG ORAL TABLET 2 tablets by mouth today, then 1 tablet by mouth days 2-3 PREDNISONE 14250871015 No Longer Active Jeri Nieto Active NITROSTAT 0.4 MG SUBLINGUAL TABLET SUBLINGUAL 1 tab SL q5min PRN chest pain NITROGLYCERIN 94861879077 Active Meenu Alejo LPN Active THEOPHYLLINE ER 300 MG ORAL TABLET EXTENDED RELEASE 12 HOUR 1 po BID THEOPHYLLINE 50251331524 Active Kortney Mccain Active POTASSIUM CHLORIDE ER 20 MEQ ORAL TABLET EXTENDED RELEASE 1 po q day POTASSIUM CHLORIDE 55551192753 Active Kortney Mccain Active POTASSIUM CHLORIDE 20 MEQ ORAL PACKET 1 tab po q day POTASSIUM CHLORIDE 36457119678 No Longer Active Kortney Mccain Active POTASSIUM CHLORIDE ER 10 MEQ ORAL CAPSULE EXTENDED RELEASE 1 capsule BID 2016 POTASSIUM CHLORIDE 72108398837 No Longer Active Kortney Mccain Active LASIX 20 MG ORAL TABLET 1 tablet by mouth every morning FUROSEMIDE 44635397399 No Longer Active Kortney Mccain Active FLUOXETINE HCL 10 MG ORAL CAPSULE 1 po qd for depression/anxiety FLUOXETINE HCL 71579606137 Active Harinder Hernandez DO Active VOLTAREN 1 % TRANSDERMAL GEL apply q 6-8 hour to left arm as needed for pain DICLOFENAC SODIUM 91414362447 Active Kortney Mccain Active ALBUTEROL SULFATE (2.5 MG/3ML) 0.083% INHALATION NEBULIZATION SOLUTION 1 vial neb q 4hrs for severe asthma. 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 NIFEDIPINE 73024412112 Active Kortney Mccain Active AMLODIPINE BESYLATE 5 MG ORAL TABLET 1 tablet by mouth daily 2016 AMLODIPINE BESYLATE 10650984439 No Longer Active Harinder Hernandez DO Active TOPAMAX 25 MG ORAL TABLET 1 tab po BID TOPIRAMATE 88258640995 Active Kortney Mccain Active FLUTICASONE PROPIONATE 50 MCG/ACT NASAL SUSPENSION 2 sprays per nostril daily PRN Allergies FLUTICASONE PROPIONATE 84725089955 Active Meenu Alejo LPN Active NIFEDIPINE ER 30 MG ORAL TABLET EXTENDED RELEASE 24 HOUR 1 daily NIFEDIPINE 66560575768 No Longer Active Harinder Hernandez DO Active FLOVENT HFA 110 MCG/ACT INHALATION AEROSOL 2 puffs inhaled b.i.d. FLUTICASONE PROPIONATE HFA 83680214490 Active Harinder Hernandez DO Active EPIPEN 2-BRUNA 0.3 MG/0.3ML INJECTION SOLUTION AUTO-INJECTOR 1 INJ NEEDED EPINEPHRINE 07693093170 Active Kortney Mccain Active PREDNISONE 20 MG ORAL TABLET 1 tab twice daily for 3 day, then one daily for three days PREDNISONE 15151022760 No Longer Active Harinder Hernandez DO Active PREDNISONE 20 MG ORAL TABLET 1 tablet twice daily for 2 days, then 1 tablet once daily for 2 days PREDNISONE 87141243071 No Longer Active Harinder Hernandez DO Active ASMANEX 120 METERED DOSES 220 MCG/INH INHALATION AEROSOL POWDER BREATH ACTIVATED 2 puffs orally twice daily MOMETASONE FUROATE 31017121323 Active Jeri Sosa LPN Active TOPIRAMATE 25 MG ORAL TABLET 1 tab po BID TOPIRAMATE 80297734477 No Longer Active Nettie Newberry MAHENDRA Active AMLODIPINE BESYLATE 5 MG ORAL TABLET Take 1 tab po daily AMLODIPINE BESYLATE 74809284988 No Longer Active Nettie Newberry MAHENDRA Active MECLIZINE HCL 25 MG ORAL TABLET 1 tablet three times daily for 3 days, then 1/ 2 tab three times daily for 3 days. MECLIZINE HCL 60407523934 No Longer Active Nettieog Newberry APRN Active AMITRIPTYLINE HCL 25 MG ORAL TABLET 1 q hs prn AMITRIPTYLINE HCL 64535884198 No Longer Active Nettie Newberry MAHENDRA Active DILAUDID 2 MG ORAL TABLET Take 1/2 tab po every 4 hours as needed for pain HYDROMORPHONE HCL 14517909149 No Longer Active Nettieog Newberry APRN Active CLOPIDOGREL BISULFATE 75 MG ORAL TABLET 1 tab by mouth once daily CLOPIDOGREL BISULFATE 55547487420 Active Meenu Alejo LPN Active ATORVASTATIN CALCIUM 10 MG ORAL TABLET 1 at bedtime ATORVASTATIN CALCIUM 71898726069 Active Kortney Mccain Active LOVASTATIN 40 MG ORAL TABLET Take 1 tab po every hs LOVASTATIN 82833901810 No Longer Active Harinder Hernandez DO Active PREDNISONE 20 MG ORAL TABLET 2 tabs daily for 4 days, 1 tab daily for 4 days, 1/2 tab daily for 4 days PREDNISONE 05021125677 No Longer Active Harinder Hernandez DO Active LEVAQUIN 500 MG ORAL TABLET Take 1 tab po daily x 8 days LEVOFLOXACIN 98839653264 No Longer Active Harinder Hernandez DO Active VENTOLIN HFA 108 (90 Base) MCG/ACT INHALATION AEROSOL SOLUTION 2 -4 puffs four times a day PRN ALBUTEROL SULFATE 40956338174 No Longer Active Jeri Sosa LPN Active ACEBUTOLOL HCL 200 MG ORAL CAPSULE 1 cap in the morning and 2 caps in the evening ACEBUTOLOL HCL 06331158076 No Longer Active Harinder W David DO Active CEFDINIR 300 MG ORAL CAPSULE take 1 cap po bid x 10 days CEFDINIR 88709455423 No Longer Active Harinder Hernandez DO Active LOVASTATIN 40 MG ORAL TABLET 1 pill by mouth nightly for cholesterol LOVASTATIN 19853345538 No Longer Active Nettie Newberry APRN Active NITROSTAT 0.4 MG SUBLINGUAL TABLET SUBLINGUAL 1 tab under tongueas needed for chest pain ( may take 3 total, 5 min apart, then call 911) NITROGLYCERIN 10687381141 No Longer Active Nettie Newberry APRN Active POTASSIUM CHLORIDE ER 10 MEQ ORAL CAPSULE EXTENDED RELEASE 1 capsule by mouth daily POTASSIUM CHLORIDE 79524714384 No Longer Active Nettie Newberry APRN Active TESSALON PERLES 100 MG ORAL CAPSULE 1 to 2 tablets by mouth 3 times daily as needed for cough BENZONATATE 38905481374 No Longer Active Nettie Newberry APRN Active PREDNISONE 20 MG ORAL TABLET 2 po qd x 5 days PREDNISONE 88948906348 No Longer Active Jae Morgan MD Active AZITHROMYCIN 250 MG ORAL TABLET 2 po qd x 1 day, then 1 po qd x 4 days 12/30 AZITHROMYCIN 40732312121 No Longer Active Jae Morgan MD Active PREDNISONE 20 MG ORAL TABLET 1 tab twice daily for 3 day, then one daily for three days PREDNISONE 70161628684 No Longer Active Jae Morgan MD Active SINGULAIR 10 MG ORAL TABLET 1 pill by mouth every evening for breathing. 2014 MONTELUKAST SODIUM 95284411749 Active Meenu Alejo LPN Active TYLENOL 325 MG ORAL TABLET 3 by mouth q4h as needed ACETAMINOPHEN 19212542899 Active Harinder Hernandez DO Active POTASSIUM CHLORIDE ER 10 MEQ ORAL TABLET EXTENDED RELEASE take 1 tab po daily POTASSIUM CHLORIDE 53363702050 No Longer Active Harinder Heranndez DO Active PREDNISONE 20 MG ORAL TABLET 1 TID x 2 days, then 1 BID x 3 days, then 1 Daily x 3 days, then stop PREDNISONE 36839620240 No Longer Active John Montemayor APRN Active LEVAQUIN 500 MG ORAL TABLET 1 tablet by mouth daily LEVOFLOXACIN 18950486201 No Longer Active Jillina Sim MCCRAY Active NEURONTIN 300 MG ORAL CAPSULE 1 cap by mouth three times daily for restless leg GABAPENTIN 75781520113 No Longer Active Harinder Hernandez DO Active BENZONATATE 100 MG ORAL CAPSULE 1 cap po TID PRN BENZONATATE 89795450489 No Longer Active Harinder Hernandez DO Active MONTELUKAST SODIUM 10 MG ORAL TABLET 1 tab po in the evening 2014 MONTELUKAST SODIUM 04759660958 No Longer Active Harinder Hernandez DO Active MUPIROCIN 2 % EXTERNAL OINTMENT apply to affected area BID x 14 days MUPIROCIN 92303139993 No Longer Active Harinder Hernandez DO Active TYLENOL EXTRA STRENGTH 500 MG ORAL TABLET as needed ACETAMINOPHEN 84482583797 No Longer Active Harinder Hernandez DO Active PREDNISONE 10 MG ORAL TABLET 1 tab po daily PREDNISONE 78785881225 No Longer Active Harinder Hernandez DO Active PREDNISONE 20 MG ORAL TABLET 2 tabs daily for 4 days, 1 tab daily for 4 days, 1/2 tab daily for 4 days PREDNISONE 59108590254 No Longer Active Harinder Hernandez DO Active AZITHROMYCIN 250 MG ORAL TABLET 2 po qd x 1 day, then 1 po qd x 4 days 04/06 AZITHROMYCIN 19654694651 No Longer Active Harinder Heranndez DO Active PREDNISONE 20 MG ORAL TABLET 3 tabs today, then 1 tab twice daily for 3 day, then one daily for three days PREDNISONE 07996143710 No Longer Active Harinder Hernandez DO Active NIFEDIAC CC 30 MG ORAL TABLET EXTENDED RELEASE 24 HOUR 1 tablet daily for raynaud's syndrome NIFEDIPINE 79823002233 No Longer Active Tawnya Pardo MA Active AMBIEN 10 MG ORAL TABLET 1/2 tab by mouth at bedtime as needed for sleep 2013 ZOLPIDEM TARTRATE 74142689093 Active Meenu Villarrealnader CHEN Active CLONAZEPAM 1 MG ORAL TABLET 1 tablet at bedtime for insomnia and restless legs CLONAZEPAM 98647742717 Active Harinder Hernandez DO Active CLONAZEPAM 0.5 MG ORAL TABLET 1 tab po daily CLONAZEPAM 43413613148 No Longer Active Harinder Hernandez DO Active PREDNISONE 10 MG ORAL TABLET 1 tablet daily for COPD PREDNISONE 32621141780 Active Kortney Mccain Active PROAIR HFA 108 (90 Base) MCG/ACT INHALATION AEROSOL SOLUTION 2 puffs four times a day as needed ALBUTEROL SULFATE 78345269529 Active Harinder Hernandez DO Active FLOVENT HFA 110 MCG/ACT INHALATION AEROSOL 2 puffs inhaled b.i.d. FLUTICASONE PROPIONATE HFA 68510110863 Active Kortney Mccain Active ACIPHEX 20 MG ORAL TABLET DELAYED RELEASE 1 tab po daily RABEPRAZOLE SODIUM 51882517219 Active Kaylah Newberry Active CLONAZEPAM 0.5 MG ORAL TABLET 1 tab po daily CLONAZEPAM 0.5 MG ORAL TABLET 482958 CLONAZEPAM Inactive PREDNISONE 20 MG ORAL TABLET 3 tabs today, then 1 tab twice daily for 3 day, then one daily for three days PREDNISONE 20 MG ORAL TABLET 996267 PREDNISONE Inactive PREDNISONE 20 MG ORAL TABLET 2 tabs daily for 4 days, 1 tab daily for 4 days, 1/2 tab daily for 4 days PREDNISONE 20 MG ORAL TABLET 248264 PREDNISONE Inactive PREDNISONE 10 MG ORAL TABLET 1 tab po daily PREDNISONE 10 MG ORAL TABLET 310408 PREDNISONE Inactive TYLENOL EXTRA STRENGTH 500 MG ORAL TABLET as needed TYLENOL EXTRA STRENGTH 500 MG ORAL TABLET 683639 ACETAMINOPHEN Inactive MUPIROCIN 2 % EXTERNAL OINTMENT apply to affected area BID x 14 days MUPIROCIN 2 % EXTERNAL OINTMENT 104866 MUPIROCIN Inactive MONTELUKAST SODIUM 10 MG ORAL TABLET 1 tab po in the evening 2014 MONTELUKAST SODIUM 10 MG ORAL TABLET 469662 MONTELUKAST SODIUM Inactive BENZONATATE 100 MG ORAL CAPSULE 1 cap po TID PRN BENZONATATE 100 MG ORAL CAPSULE 352050 BENZONATATE Inactive NEURONTIN 300 MG ORAL CAPSULE 1 cap by mouth three times daily for restless leg NEURONTIN 300 MG ORAL CAPSULE 756381 GABAPENTIN Inactive LEVAQUIN 500 MG ORAL TABLET 1 tablet by mouth daily LEVAQUIN 500 MG ORAL TABLET 934145 LEVOFLOXACIN Inactive PREDNISONE 20 MG ORAL TABLET 1 TID x 2 days, then 1 BID x 3 days, then 1 Daily x 3 days, then stop PREDNISONE 20 MG ORAL TABLET 822547 PREDNISONE Inactive POTASSIUM CHLORIDE ER 10 MEQ ORAL TABLET EXTENDED RELEASE take 1 tab po daily POTASSIUM CHLORIDE ER 10 MEQ ORAL TABLET EXTENDED RELEASE POTASSIUM CHLORIDE Inactive PREDNISONE 20 MG ORAL TABLET 1 tab twice daily for 3 day, then one daily for three days PREDNISONE 20 MG ORAL TABLET 408576 PREDNISONE Inactive TESSALON PERLES 100 MG ORAL CAPSULE 1 to 2 tablets by mouth 3 times daily as needed for cough TESSALON PERLES 100 MG ORAL CAPSULE 014587 BENZONATATE Inactive POTASSIUM CHLORIDE ER 10 MEQ ORAL CAPSULE EXTENDED RELEASE 1 capsule by mouth daily POTASSIUM CHLORIDE ER 10 MEQ ORAL CAPSULE EXTENDED RELEASE POTASSIUM CHLORIDE Inactive NITROSTAT 0.4 MG SUBLINGUAL TABLET SUBLINGUAL 1 tab under tongueas needed for chest pain ( may take 3 total, 5 min apart, then call 911) NITROSTAT 0.4 MG SUBLINGUAL TABLET SUBLINGUAL 961568 NITROGLYCERIN Inactive LOVASTATIN 40 MG ORAL TABLET 1 pill by mouth nightly for cholesterol LOVASTATIN 40 MG ORAL TABLET 357326 LOVASTATIN Inactive CEFDINIR 300 MG ORAL CAPSULE take 1 cap po bid x 10 days CEFDINIR 300 MG ORAL CAPSULE 324618 CEFDINIR Inactive ACEBUTOLOL HCL 200 MG ORAL CAPSULE 1 cap in the morning and 2 caps in the evening ACEBUTOLOL HCL 200 MG ORAL CAPSULE 729540 ACEBUTOLOL HCL Inactive VENTOLIN HFA 108 (90 Base) MCG/ACT INHALATION AEROSOL SOLUTION 2 -4 puffs four times a day PRN VENTOLIN HFA 108 (90 Base) MCG/ ACT INHALATION AEROSOL SOLUTION ALBUTEROL SULFATE Inactive LEVAQUIN 500 MG ORAL TABLET Take 1 tab po daily x 8 days LEVAQUIN 500 MG ORAL TABLET 043823 LEVOFLOXACIN Inactive PREDNISONE 20 MG ORAL TABLET 2 tabs daily for 4 days, 1 tab daily for 4 days, 1/2 tab daily for 4 days PREDNISONE 20 MG ORAL TABLET 328039 PREDNISONE Inactive LOVASTATIN 40 MG ORAL TABLET Take 1 tab po every hs LOVASTATIN 40 MG ORAL TABLET 231986 LOVASTATIN Inactive DILAUDID 2 MG ORAL TABLET Take 1/2 tab po every 4 hours as needed for pain DILAUDID 2 MG ORAL TABLET 518442 HYDROMORPHONE HCL Inactive AMITRIPTYLINE HCL 25 MG ORAL TABLET 1 q hs prn AMITRIPTYLINE HCL 25 MG ORAL TABLET 412346 AMITRIPTYLINE HCL Inactive MECLIZINE HCL 25 MG ORAL TABLET 1 tablet three times daily for 3 days, then 1/ 2 tab three times daily for 3 days. MECLIZINE HCL 25 MG ORAL TABLET 182236 MECLIZINE HCL Inactive AMLODIPINE BESYLATE 5 MG ORAL TABLET Take 1 tab po daily AMLODIPINE BESYLATE 5 MG ORAL TABLET 967849 AMLODIPINE BESYLATE Inactive TOPIRAMATE 25 MG ORAL TABLET 1 tab po BID TOPIRAMATE 25 MG ORAL TABLET 130308 TOPIRAMATE Inactive PREDNISONE 20 MG ORAL TABLET 1 tablet twice daily for 2 days, then 1 tablet once daily for 2 days PREDNISONE 20 MG ORAL TABLET 933725 PREDNISONE Inactive PREDNISONE 20 MG ORAL TABLET 1 tab twice daily for 3 day, then one daily for three days PREDNISONE 20 MG ORAL TABLET 582123 PREDNISONE Inactive NIFEDIPINE ER 30 MG ORAL TABLET EXTENDED RELEASE 24 HOUR 1 daily NIFEDIPINE ER 30 MG ORAL TABLET EXTENDED RELEASE 24 HOUR NIFEDIPINE Inactive AMLODIPINE BESYLATE 5 MG ORAL TABLET 1 tablet by mouth daily 2016 AMLODIPINE BESYLATE 5 MG ORAL TABLET 065285 AMLODIPINE BESYLATE Inactive LASIX 20 MG ORAL TABLET 1 tablet by mouth every morning LASIX 20 MG ORAL TABLET 942275 FUROSEMIDE Inactive POTASSIUM CHLORIDE ER 10 MEQ ORAL CAPSULE EXTENDED RELEASE 1 capsule BID 2016 POTASSIUM CHLORIDE ER 10 MEQ ORAL CAPSULE EXTENDED RELEASE POTASSIUM CHLORIDE Inactive POTASSIUM CHLORIDE 20 MEQ ORAL PACKET 1 tab po q day POTASSIUM CHLORIDE 20 MEQ ORAL PACKET 4331406 POTASSIUM CHLORIDE Inactive PREDNISONE 20 MG ORAL TABLET 2 tablets by mouth today, then 1 tablet by mouth days 2-3 PREDNISONE 20 MG ORAL TABLET 036250 PREDNISONE Inactive SPIRONOLACTONE 25 MG ORAL TABLET 1 tablet by mouth daily SPIRONOLACTONE 25 MG ORAL TABLET 319507 SPIRONOLACTONE Inactive AZITHROMYCIN 250 MG ORAL TABLET 2 po qd x 1 day, then 1 po qd x 4 days 04/06 AZITHROMYCIN 250 MG ORAL TABLET 338136 AZITHROMYCIN Inactive AZITHROMYCIN 250 MG ORAL TABLET 2 po qd x 1 day, then 1 po qd x 4 days 12/30 AZITHROMYCIN 250 MG ORAL TABLET 730180 AZITHROMYCIN Inactive PREDNISONE 20 MG ORAL TABLET 2 po qd x 5 days PREDNISONE 20 MG ORAL TABLET 495836 PREDNISONE Inactive Vital Signs Date Name Value [...] Panel - Chemistry sodium, serum 140 mmol/L 435-680 7798/07/13 potassium, serum 3.2 mmol/L 3.5-5.2 chloride, serum 103 mmol/L 98-107 carbon dioxide, venous blood 26.9 mmol/L 21.0-32.0 blood glucose 93 mg/dL 65-110 calcium, serum 9.2 mg/dL 8.5-10.1 urea nitrogen, blood 13 mg/dL 7-18 creatinine, serum 0.84 mg/dL 0.60-1.30 sodium, serum 140 mmol/L 285-469 2701/08/21 potassium, serum 3.8 mmol/L 3.5-5.2 chloride, serum [...] ... - Chemistry sodium, serum 141 mmol/L 043-417 4642/08/07 carbon dioxide, venous blood 34.0 mmol/L 21.0-32.0 [...] 1.40 mg/dL 0.00-1.00 cholesterol, serum 192 mg/dL 793-786 1613/10/19 triglyceride, serum, fasting 71 mg/dL 30-200 HDL cholesterol, serum 72 mg/dL 32-60 LDL cholesterol, serum 106 mg/dL 0-130 Lab Report: Rapid Strep - Lab Microbial identification kit, rapid strep method Negative Negative Lab Report: THEOPHYLLINE - Toxicology theophylline level, serum 3.1 ug/mL 10.0-20.0 Encounters Code Encounter Date Provider Facility CPT-92672 Level 3 Est. Patient 12:36:15 MORTAR MAN Harinder Cr [facility] CPT-22778 Level 3 Est. Patient 15:14:45 MORTAR MAN Harinder Cr [facility] CPT-56041 Level 4 Est. Patient 14:45:25 CDT Harinder Cr [facility] CPT-92325 Level 4 Est. Patient 09:15:13 CDT Harinder Cr [facility] CPT-56235 Level 3 Est. Patient 11:51:58 CDT Harinder Cr [facility] CPT-14650 Level 3 Est. Patient 11:30:05 CDT Harinder Cr [facility] CPT-96416 Level 4 Est. Patient 10:19:23 CDT Harinder Cr [facility] CPT-55726 Level 3 Est. Patient 09:58:58 CDT Harinder Cr [facility] CPT-76717 Level 3 Est. Patient 12:37:21 CDT Harinder Cr [facility] CPT-77334 Level 3 Est. Patient 18:37:17 CDT Harinder Cr [facility] CPT-14778 Level 4 Est. Patient 11:15:54 CDT Nettie Roihth [facility] CPT-68924 Level 3 Est. Patient 16:42:24 CDT Harinder Cr [facility] CPT-52757 Level 3 Est. Patient 15:03:36 CDT Harinder Cr [facility] CPT-35674 Level 3 Est. Patient 15:03:20 CDT Harinder Cr [facility] CPT-88692 Level 3 Est. Patient 12:14:34 CDT Harinder Cr [facility] CPT-87095 Level 3 Est. Patient 13:47:15 CDT Harinder Cr [facility] CPT-09101 Level 3 Est. Patient 14:08:24 CDT Harinder W David [facility] CPT-21112 Level 3 Est. Patient 10:07:15 CDT Harinder Hernandez [facility] CPT-95869 Level 3 Est. Patient 10:06:59 CDT Harinder Hernandez [facility] CPT-75234 Level 3 Est. Patient 15:53:29 CDT Jae Morgan MD [facility] CPT-10925 Level 3 Est. Patient 17:19:04 CDT Harinder Hernandez [facility] CPT-33887 Level 3 Est. Patient 11:13:01 CDT Harinder Hernandez [facility] CPT-00734 Level 3 Est. Patient 09:03:58 CDT Harinder Hernandez [facility] CPT-62204 Level 3 Est. Patient 14:46:45 MORTAR MAN Harinder Hernandez [facility] CPT-55488 Level 3 Est. Patient 09:35:49 MORTAR MAN Harinder Hernandez [facility] CPT-73388 Level 3 Est. Patient 09:29:37 MORTAR MAN Harinder Hernandez [facility] CPT-01282 Level 3 Est. Patient 15:51:07 CDT Harinder Hernandez [facility] CPT-36101 Level 3 Est. Patient 18:13:13 CDT Harinder Hernandez [facility] CPT-98037 Level 3 Est. Patient 10:44:19 CDT Harinder Shaye David [facility] CPT-31919 Level 4 Est. Patient 10:07:19 MORTAR MAN Harinder Cr [facility] CPT-11017 Level 3 Est. Patient 15:59:32 MORTAR MAN Harinder Cr [facility] Procedures Code Procedure Name Date Entry Date Standard Description CPT-85487 Abd compl w upright - XRAY USE ONLY 14:48:09 CDT 02/18 CPT-60626 Port a cath flush 13:46:05 CDT CPT-88783 Hip, complete, 2-3 views - XRAY USE ONLY 10:28:40 CDT CPT-44435 BMP - LAB USE ONLY 16:45:09 MORTAR MAN CPT-09938 Port a cath flush 12:00:13 MORTAR MAN CPT-TCMM Transitional Care Mgmt-Moderate 11:20:16 MORTAR MAN CPT-98026 First Vx - Ix admin for Medicare patients 17:35:15 CDT CPT-72929 Fluzone Preservative Free Intramuscular Suspension 17:35 :15 CDT CPT-33601 Microalbumin - LAB USE ONLY 11:52:05 CDT CPT-TCMM Transitional Care Mgmt-Moderate 11:33:57 CDT CPT-34653 No Charge Offi Visit 14:11:29 CDT CPT-77742 Magnesium - LAB USE ONLY 10:45:44 CDT CPT-83734 Lipid - LAB USE ONLY 10:45:44 CDT CPT-73652 CBC - LAB USE ONLY 10:45:44 CDT CPT-89648 Venipuncture Draw Fee 10:45:43 CDT CPT-91326 Venipuncture Draw Fee 18:21:27 CDT CPT-JTINJ Asp/Joint Injection 18:38:04 CDT CPT-68011 Immunization Each Additional Inj 17:38:04 CDT CPT-82468 Immunization Single Admin 17:38:04 CDT CPT-00727 Prevnar 13 17:38:04 CDT CPT-89339 Fluzone Quadrivalent preservative free (>=3yrs.) 17:38: 04 CDT CPT-46000 No Charge Offi Visit 11:14:03 CDT CPT-22666 Chest 2V Frontal and Lat 14:00:18 CDT CPT-OV Office Visit 16:10:28 CDT CPT-JTINJ Asp/Joint Injection 09:03:57 CDT CPT-Cryo Cryotherapy 09:35:49 MORTAR MAN CPT-JTINJ Asp/Joint Injection 09:34:45 MORTAR MAN CPT-J2930 Solu Medrol 125 mg (Methyl Prednisolone Sodium Succinate) 20:37:27 CDT CPT-41364 Abx/Therapy Injection 20:37:27 CDT CPT-97262 Port a cath flush 08:15:51 CDT CPT-73605 Port a cath flush 09:54:16 CDT CPT-66048 Port a cath flush 09:38:02 CDT CPT-43391 Port a cath flush 11:00:27 MORTAR MAN
[2017-12-29] MEDS ORDERED: ACETAMINOPHEN 500 MG TAB (TYLENOL) PO PRN (03:00)
[2017-12-29] MEDS ORDERED: RT-ALBUTEROL/IPRATROPIUM 3 ML (DUONEB) VIAL INH PRN (03:00)
--- OUTSIDE RECORDS SUMMARY | 2017-12-29 03:00 | XMS REPORT | Clinical Summary ---
Author Author Admin, QIE Organization [facility] Address Unknown Phone Unavailable Allergies, Adverse [...] Hypokalemia 276.8 Active Harinder Hernandez DO Hypopotassemia Encounter for fitting and adjustment of vascular [...] bursitis, left ICD-726.5 Inactive Harinder Shaye David Breast mass, right ICD-611.72 Inactive Harinder Hernandez DO Medication List Medication Instructions Start Date Stop Date Generic Name NDC Status Provider Patient Instruction ALBUTEROL SULFATE 0.083 % NEBU SOLN 1 vial neb q 4hrs PRN Wheezing Dx: J44.1 ALBUTEROL SULFATE 82205529140 Active Kortney Mccain Active AMLODIPINE BESYLATE 5 MG TABS 1 tablet by mouth daily AMLODIPINE BESYLATE 54244517581 Active Harinder Hernandez DO Active NIFEDIPINE ER 30 MG ORAL [id number] 1 daily NIFEDIPINE 82491520580 No Longer Active Harinder Hernandez DO Active POTASSIUM CHLORIDE 20 MEQ ORAL PACK Take 1 tablet by mouth daily POTASSIUM CHLORIDE 80436239321 Active Ciera Pimentel Active FLOVENT HFA 110 MCG/ACT AERO 2 puffs inhaled b.i.d. FLUTICASONE PROPIONATE HFA 57547036604 Active Harinder Hernandez DO Active POTASSIUM CHLORIDE CR 10 MEQ CPCR 1 capsule by mouth daily POTASSIUM CHLORIDE 46903971799 Active Harinder Hernandez DO Active EPIPEN 2-BRUNA 0.3 MG/0.3ML INJ SOAJ 1 INJ NEEDED EPINEPHRINE 69226641733 Active Harinder Hernandez DO Active PREDNISONE 20 MG TAB 1 tab twice daily for 3 day, then one daily for three days PREDNISONE 35063067309 No Longer Active Harinder Hernandez DO Active PREDNISONE 20 MG TAB 1 tablet twice daily for 2 days, then 1 tablet once daily for 2 days PREDNISONE 64500726240 No Longer Active Harinder Hernandez DO Active ASMANEX 120 METERED DOSES 220 MCG/INH INH AEPB 2 puffs orally twice daily MOMETASONE FUROATE 86682409914 Active Jeri Sosa RPT,RMA Active TOPIRAMATE 25 MG TABS 1 tab po BID TOPIRAMATE 82019130567 No Longer Active Nettie Newberry APRN Active AMLODIPINE BESYLATE 5 MG ORAL TABS Take 1 tab po daily AMLODIPINE BESYLATE 15957071895 No Longer Active Nettie Rohith MAHENDRA Active MECLIZINE HCL 25 MG TAB 1 tablet three times daily for 3 days, then 1/2 tab three times daily for 3 days. MECLIZINE HCL 54163069234 No Longer Active Nettie Newberry APRN Active AMITRIPTYLINE HCL 25 MG ORAL TABS 1 q hs prn AMITRIPTYLINE HCL 06159541231 No Longer Active Nettie Rohith MAHENDRA Active DILAUDID 2 MG ORAL TABS Take 1/2 tab po every 4 hours as needed for pain 2014 HYDROMORPHONE HCL 99699613963 No Longer Active Nettie Newberry APRN Active CLOPIDOGREL BISULFATE 75 MG ORAL TABS 1 tab by mouth once daily CLOPIDOGREL BISULFATE 97419180719 Active Tawnya Pardo MA Active ATORVASTATIN CALCIUM 10 MG ORAL TABS 1 at bedtime ATORVASTATIN CALCIUM 47573464141 Active Tawnya Pardo MA Active LOVASTATIN 40 MG ORAL TABS Take 1 tab po every hs LOVASTATIN 54225258025 No Longer Active Harinder Hernandez DO Active PREDNISONE 20 MG TAB 2 tabs daily for 4 days, 1 tab daily for 4 days, 1/2 tab daily for 4 days PREDNISONE 23541225315 No Longer Active Harinder Hernandez DO Active LEVAQUIN 500 MG ORAL TABS Take 1 tab po daily x 8 days LEVOFLOXACIN 03489998622 No Longer Active Harinder Hernandez DO Active VENTOLIN HFA 108 (90 BASE) MCG/ACT AERS 2 -4 puffs four times a day PRN 2013 ALBUTEROL SULFATE 58706081459 No Longer Active Jeri Sosa RPT,RMA Active ACEBUTOLOL HCL 200 MG CAPS 1 cap in the morning and 2 caps in the evening ACEBUTOLOL HCL 93522631287 No Longer Active Harinder Hernandez DO Active CEFDINIR 300 MG ORAL CAPS take 1 cap po bid x 10 days CEFDINIR 81476497372 No Longer Active Harinder eHrnandez DO Active LOVASTATIN 40 MG TABS 1 pill by mouth nightly for cholesterol LOVASTATIN 92210221371 No Longer Active Nettie Newberry APRN Active NITROSTAT 0.4 MG SUBL 1 tab under tongueas needed for chest pain ( may take 3 total, 5 min apart, then call 911) NITROGLYCERIN 41524665465 No Longer Active Nettie Newberry APRN Active POTASSIUM CHLORIDE CR 10 MEQ CPCR 1 capsule by mouth daily 02/14 POTASSIUM CHLORIDE 94271859922 No Longer Active Nettie Newberry APRN Active TESSALON PERLES 100 MG CAP 1 to 2 tablets by mouth 3 times daily as needed for cough BENZONATATE 21049318612 No Longer Active Nettie Newberry APRN Active THEOPHYLLINE ER 200 MG ORAL [id number] Take 1 tab every 12 hours THEOPHYLLINE 71373233928 Active Tawnya Pardo MA Active PREDNISONE 20 MG TAB 2 po qd x 5 days PREDNISONE 47702193300 No Longer Active Jae Morgan MD Active AZITHROMYCIN 250 MG TABS 2 po qd x 1 day, then 1 po qd x 4 days AZITHROMYCIN 99987417967 No Longer Active Jae Morgan MD Active PREDNISONE 20 MG TAB 1 tab twice daily for 3 day, then one daily for three days PREDNISONE 08892843789 No Longer Active Jae Morgan MD Active SINGULAIR 10 MG TABS 1 pill by mouth every evening for breathing. MONTELUKAST SODIUM 29563908062 Active Tawnya Pardo MA Active TYLENOL 325 MG TAB 3 by mouth q4h as needed ACETAMINOPHEN 66359499887 Active Harinder Hernandez DO Active POTASSIUM CHLORIDE ER 10 MEQ CR-TABS take 1 tab po daily POTASSIUM CHLORIDE 55562147756 No Longer Active Harinder Hernandez DO Active PREDNISONE 20 MG TAB 1 TID x 2 days, then 1 BID x 3 days, then 1 Daily x 3 days, then stop PREDNISONE 20476941579 No Longer Active Jillina Frazell VIBRATION TECHNICIAN Active LEVAQUIN 500 MG TAB 1 tablet by mouth daily LEVOFLOXACIN 43794794964 No Longer Active Jillina Frazell VIBRATION TECHNICIAN Active NEURONTIN 300 MG CAP 1 cap by mouth three times daily for restless leg 06/22 GABAPENTIN 66156508087 No Longer Active Harinder Hernandez DO Active BENZONATATE 100 MG CAPS 1 cap po TID PRN BENZONATATE 45156516057 No Longer Active Harinder Hernandez DO Active MONTELUKAST SODIUM 10 MG TABS 1 tab po in the evening MONTELUKAST SODIUM 84825632457 No Longer Active Harinder Hernandez DO Active MUPIROCIN 2 % OINT apply to affected area BID x 14 days MUPIROCIN 91693114329 No Longer Active Harinder Hernandez DO Active TYLENOL EXTRA STRENGTH 500 MG TABS as needed ACETAMINOPHEN 54060178027 No Longer Active Harinder Hernandez DO Active PREDNISONE 10 MG TABS 1 tab po daily PREDNISONE 80584048071 No Longer Active Harinder Hernandez DO Active PREDNISONE 20 MG TAB 2 tabs daily for 4 days, 1 tab daily for 4 days, 1/2 tab daily for 4 days PREDNISONE 10430333837 No Longer Active Harinder Hernandez DO Active AZITHROMYCIN 250 MG TABS 2 po qd x 1 day, then 1 po qd x 4 days AZITHROMYCIN 43020989862 No Longer Active Harinder eHrnandez DO Active PREDNISONE 20 MG TAB 3 tabs today, then 1 tab twice daily for 3 day, then one daily for three days PREDNISONE 13771692337 No Longer Active Harinder Hernandez DO Active NIFEDIAC CC 30 MG [id number] 1 tablet daily for raynaud's syndrome NIFEDIPINE 81937564481 No Longer Active Tawnya Pardo MA Active AMBIEN 10 MG TAB 1/2 tab by mouth at bedtime as needed for sleep ZOLPIDEM TARTRATE 25802647864 Active Harinder Hernandez DO Active CLONAZEPAM 1 MG TABS 1 tablet at bedtime for insomnia and restless legs 09/14 CLONAZEPAM 85328426234 Active Harinder Hernandez DO Active CLONAZEPAM 0.5 MG TABS 1 tab po daily CLONAZEPAM 97398333543 No Longer Active Harinder Hernandez DO Active PREDNISONE 10 MG TAB 1 tablet daily for COPD PREDNISONE 62799434443 Active Tawnya Pardo MA Active PROAIR HFA 108 (90 BASE) MCG/ACT AERS 2 puffs four times a day as needed 2012 ALBUTEROL SULFATE 17714065624 Active Tawnya Pardo MA Active FLOVENT HFA 110 MCG/ACT AERO 2 puffs inhaled b.i.d. FLUTICASONE PROPIONATE HFA 05177127442 Active Kortney Mccain Active ACIPHEX 20 MG TBEC 1 tab po daily RABEPRAZOLE SODIUM 11691318191 Active Kaylah Newberry Active CLONAZEPAM 0.5 MG TABS 1 tab po daily CLONAZEPAM 0.5 MG TABS 151665 CLONAZEPAM Inactive PREDNISONE 20 MG TAB 3 tabs today, then 1 tab twice daily for 3 day, then one daily for three days PREDNISONE 20 MG TAB 884796 PREDNISONE Inactive PREDNISONE 20 MG TAB 2 tabs daily for 4 days, 1 tab daily for 4 days, 1/2 tab daily for 4 days PREDNISONE 20 MG TAB 218912 PREDNISONE Inactive PREDNISONE 10 MG TABS 1 tab po daily PREDNISONE 10 MG TABS 616631 PREDNISONE Inactive TYLENOL EXTRA STRENGTH 500 MG TABS as needed TYLENOL EXTRA STRENGTH 500 MG TABS 614253 ACETAMINOPHEN Inactive MUPIROCIN 2 % OINT apply to affected area BID x 14 days MUPIROCIN 2 % OINT 247936 MUPIROCIN Inactive MONTELUKAST SODIUM 10 MG TABS 1 tab po in the evening MONTELUKAST SODIUM 10 MG TABS 20010818 MONTELUKAST SODIUM Inactive BENZONATATE 100 MG CAPS 1 cap po TID PRN BENZONATATE 100 MG CAPS 19730321 BENZONATATE Inactive NEURONTIN 300 MG CAP 1 cap by mouth three times daily for restless leg 06/22 NEURONTIN 300 MG CAP 933351 GABAPENTIN Inactive LEVAQUIN 500 MG TAB 1 tablet by mouth daily LEVAQUIN 500 MG TAB 133875 LEVOFLOXACIN Inactive PREDNISONE 20 MG TAB 1 TID x 2 days, then 1 BID x 3 days, then 1 Daily x 3 days, then stop PREDNISONE 20 MG TAB 209532 PREDNISONE Inactive POTASSIUM CHLORIDE ER 10 MEQ CR-TABS take 1 tab po daily POTASSIUM CHLORIDE ER 10 MEQ CR-TABS POTASSIUM CHLORIDE Inactive PREDNISONE 20 MG TAB 1 tab twice daily for 3 day, then one daily for three days PREDNISONE 20 MG TAB 508984 PREDNISONE Inactive TESSALON PERLES 100 MG CAP [...] then call 911) NITROSTAT 0.4 MG SUBL 593896 NITROGLYCERIN Inactive LOVASTATIN 40 MG TABS 1 pill by mouth nightly for cholesterol LOVASTATIN 40 MG TABS 854260 LOVASTATIN Inactive CEFDINIR 300 MG ORAL CAPS take 1 cap po bid x 10 days CEFDINIR 300 MG ORAL CAPS 20021018 CEFDINIR Inactive ACEBUTOLOL HCL 200 MG CAPS 1 cap in the morning and 2 caps in the evening ACEBUTOLOL HCL 200 MG CAPS 964409 ACEBUTOLOL HCL Inactive VENTOLIN HFA 108 (90 BASE) MCG/ACT AERS 2 -4 puffs four times a day PRN 2013 VENTOLIN HFA 108 (90 BASE) MCG/ACT AERS ALBUTEROL SULFATE Inactive LEVAQUIN 500 MG ORAL TABS Take 1 tab po daily x 8 days LEVAQUIN 500 MG ORAL TABS 827213 LEVOFLOXACIN Inactive PREDNISONE 20 MG TAB 2 tabs daily for 4 days, 1 tab daily for 4 days, 1/2 tab daily for 4 days PREDNISONE 20 MG TAB 766444 PREDNISONE Inactive LOVASTATIN 40 MG ORAL TABS Take 1 tab po every hs LOVASTATIN 40 MG ORAL TABS 024033 LOVASTATIN Inactive DILAUDID 2 MG ORAL TABS Take 1/2 tab po every 4 hours as needed for pain 2014 DILAUDID 2 MG ORAL TABS 692371 HYDROMORPHONE HCL Inactive AMITRIPTYLINE HCL 25 MG ORAL TABS 1 q hs prn AMITRIPTYLINE HCL 25 MG ORAL TABS 548920 AMITRIPTYLINE HCL Inactive MECLIZINE HCL 25 MG TAB 1 tablet three times daily for 3 days, then 1/2 tab three times daily for 3 days. MECLIZINE HCL 25 MG TAB 545414 MECLIZINE HCL Inactive AMLODIPINE BESYLATE 5 MG ORAL TABS Take 1 tab po daily AMLODIPINE BESYLATE 5 MG ORAL TABS 056670 AMLODIPINE BESYLATE Inactive TOPIRAMATE 25 MG TABS 1 tab po BID TOPIRAMATE 25 MG TABS 783846 TOPIRAMATE Inactive PREDNISONE 20 MG TAB 1 tablet twice daily for 2 days, then 1 tablet once daily for 2 days PREDNISONE 20 MG TAB 787311 PREDNISONE Inactive PREDNISONE 20 MG TAB 1 tab twice daily for 3 day, then one daily for three days PREDNISONE 20 MG TAB 572194 PREDNISONE Inactive NIFEDIPINE ER 30 MG ORAL [id number] 1 daily NIFEDIPINE ER 30 MG ORAL [id number] NIFEDIPINE Inactive AZITHROMYCIN 250 MG TABS 2 po qd x 1 day, then 1 po qd x 4 days AZITHROMYCIN 250 MG TABS 9506755 AZITHROMYCIN Inactive AZITHROMYCIN 250 MG TABS 2 po qd x 1 day, then 1 po qd x 4 days AZITHROMYCIN 250 MG TABS 7417409 AZITHROMYCIN Inactive PREDNISONE 20 MG TAB 2 po qd x 5 days PREDNISONE 20 MG TAB 267632 PREDNISONE Inactive Vital Signs Date Name Value [...] Panel - Chemistry sodium, serum 137 mmol/L 467-104 1528/01/03 potassium, serum 3.4 mmol/L 3.5-5.2 chloride, serum [...] Magnesium - Chemistry cholesterol, serum 180 mg/dL 594-926 5849/08/08 triglyceride, serum, fasting 92 mg/dL 30-200 HDL cholesterol, serum 66 mg/dL 32-96 LDL cholesterol, serum 96 mg/dL 0-130 sodium, serum 142 mmol/L 003-899 5354/08/08 carbon dioxide, venous blood 27.4 mmol/L 21.0-32.0 [...] 10.0-20.0 Encounters Code Encounter Date Provider Facility CPT-14480 Level 3 Est. Patient 09:58:58 CDT Harinder Cr [facility] CPT-60453 Level 3 Est. Patient 12:37:21 CDT Harinder Cr [facility] CPT-52970 Level 3 Est. Patient 18:37:17 CDT Harinder [facility] CPT-10957 Level 4 Est. Patient 11:15:54 CDT Nettie Newberry [facility] CPT-39839 Level 3 Est. Patient 16:42:24 CDT Harinder Cr [facility] CPT-79082 Level 3 Est. Patient 15:03:36 CDT Harinder Cr [facility] CPT-66612 Level 3 Est. Patient 15:03:20 CDT Harinder Cr [facility] CPT-91090 Level 3 Est. Patient 12:14:34 CDT Harinder Cr [facility] CPT-11430 Level 3 Est. Patient 13:47:15 CDT Harinder Cr [facility] CPT-11032 Level 3 Est. Patient 14:08:24 CDT Harinder Hernandez [facility] CPT-78322 Level 3 Est. Patient 10:07:15 CDT Harinder Hernandez [facility] CPT-46794 Level 3 Est. Patient 10:06:59 CDT Harinder Hernandez [facility] CPT-09248 Level 3 Est. Patient 15:53:29 CDT Jae Morgan MD [facility] CPT-10285 Level 3 Est. Patient 17:19:04 CDT Harinder Hernandez [facility] CPT-62745 Level 3 Est. Patient 11:13:01 CDT Harinder Hernandez [facility] CPT-16685 Level 3 Est. Patient 09:03:58 CDT Harinder Hernandez [facility] CPT-34431 Level 3 Est. Patient 14:46:45 EYELET OPERATOR Harinder Hernandez [facility] CPT-22391 Level 3 Est. Patient 09:35:49 EYELET OPERATOR Harinder Hernandez [facility] CPT-81437 Level 3 Est. Patient 09:29:37 EYELET OPERATOR Harinder Hernandez [facility] CPT-29573 Level 3 Est. Patient 15:51:07 CDT Harinder Hernandez [facility] CPT-15473 Level 3 Est. Patient 18:13:13 CDT Harinder Hernandez [facility] CPT-17108 Level 3 Est. Patient 10:44:19 CDT Harinder Hernandez [facility] CPT-35187 Level 4 Est. Patient 10:07:19 EYELET OPERATOR Harinder Hernandez [facility] CPT-77625 Level 3 Est. Patient 15:59:32 EYELET OPERATOR Harinder Cr [facility] Procedures Code Procedure Name Date Entry Date Standard Description CPT-05853 BMP - LAB USE ONLY 16:45:09 EYELET OPERATOR CPT-51183 Port a cath flush 12:00:13 EYELET OPERATOR CPT-TCMM Transitional Care Mgmt-Moderate 11:20:16 EYELET OPERATOR CPT-82533 First Vx - Ix admin for Medicare patients 17:35:15 CDT CPT-96941 Fluzone Preservative Free Intramuscular Suspension 17:35 :15 CDT CPT-00451 Microalbumin - LAB USE ONLY 11:52:05 CDT CPT-TCMM Transitional Care Mgmt-Moderate 11:33:57 CDT CPT-51562 No Charge Offi Visit 14:11:29 CDT CPT-39454 Magnesium - LAB USE ONLY 10:45:44 CDT CPT-42082 Lipid - LAB USE ONLY 10:45:44 CDT CPT-69217 CBC - LAB USE ONLY 10:45:44 CDT CPT-57779 Venipuncture Draw Fee 10:45:43 CDT CPT-23843 Venipuncture Draw Fee 18:21:27 CDT CPT-JTINJ Asp/Joint Injection 18:38:04 CDT CPT-44553 Immunization Each Additional Inj 17:38:04 CDT CPT-27222 Immunization Single Admin 17:38:04 CDT CPT-64152 Prevnar 13 17:38:04 CDT CPT-67355 Fluzone Quadrivalent preservative free (>=3yrs.) 17:38: 04 CDT CPT-06510 No Charge Offi Visit 11:14:03 CDT CPT-70963 Chest 2V Frontal and Lat 14:00:18 CDT CPT-OV Office Visit 16:10:28 CDT CPT-JTINJ Asp/Joint Injection 09:03:57 CDT CPT-Cryo Cryotherapy 09:35:49 EYELET OPERATOR CPT-JTINJ Asp/Joint Injection 09:34:45 EYELET OPERATOR CPT-J2930 Solu Medrol 125 mg (Methyl Prednisolone Sodium Succinate) 20:37:27 CDT CPT-68591 Abx/Therapy Injection 20:37:27 CDT CPT-57389 Port a cath flush 08:15:51 CDT CPT-59418 Port a cath flush 09:54:16 CDT CPT-18100 Port a cath flush 09:38:02 CDT CPT-86201 Port a cath flush 11:00:27 EYELET OPERATOR
--- OUTSIDE RECORDS SUMMARY | 2017-12-29 03:02 | XMS REPORT | Clinical Summary ---
Author Author Admin, QIE Organization [facility] Address Unknown Phone Unavailable Allergies, Adverse Reactions, [...] Clostridium difficile colitis 008.45 Resolved Harinder Shaye David DO Intestinal infection due to clostridium difficile Abdominal pain, right lower quadrant 789.03 Resolved Harinder Cr David DO Abdominal pain, right lower quadrant Needs vaccination for influenza V04.81 Resolved Harinder Shaye David DO Need for prophylactic vaccination and inoculation against influenza Need for prophylactic vaccination against streptococcus pneumoniae ( Pneumococcus) V03.82 Resolved Harinder Shaye David DO Need for [...] chronic 787.91 Active Harinder Hernandez DO Diarrhea Breast mass, right ICD-611.72 Inactive Harinder Hernandez [...] vaccination for influenza ICD-V04.81 Inactive Harinder W Daivd DO Need for prophylactic vaccination against streptococcus pneumoniae ( Pneumococcus) ICD-V03.82 Inactive Harinder W David DO Greater trochanteric bursitis, left ICD-726.5 Inactive Harinder W David DO Medication List Medication Instructions Start Date Stop Date Generic Name NDC Status Provider Patient Instruction PREDNISONE 20 MG TAB 1 tab twice daily for 3 day, then one daily for three days PREDNISONE 53604885675 No Longer Active Harinder Hernandez DO Active PREDNISONE 20 MG TAB 1 tablet twice daily for 2 days, then 1 tablet once daily for 2 days PREDNISONE 62209048003 No Longer Active Harinder Hernandez DO Active ASMANEX 120 METERED DOSES 220 MCG/INH INH AEPB 2 puffs orally twice daily MOMETASONE FUROATE 82478473487 Active Jeri Sosa RPT,RMA Active NIFEDIPINE ER 30 MG ORAL [id number] 1 daily NIFEDIPINE 76672440745 Active Tawnya Pardo MA Active TOPIRAMATE 25 MG TABS 1 tab po BID TOPIRAMATE 08721441091 No Longer Active Nettie Newberry APRN Active AMLODIPINE BESYLATE 5 MG ORAL TABS Take 1 tab po daily AMLODIPINE BESYLATE 31887090548 No Longer Active Nettie Newberry APRN Active MECLIZINE HCL 25 MG TAB 1 tablet three times daily for 3 days, then 1/2 tab three times daily for 3 days. MECLIZINE HCL 22229873423 No Longer Active Nettie Newberry APRN Active AMITRIPTYLINE HCL 25 MG ORAL TABS 1 q hs prn AMITRIPTYLINE HCL 79091452559 No Longer Active Nettie Newberry APRN Active DILAUDID 2 MG ORAL TABS Take 1/2 tab po every 4 hours as needed for pain 2014 HYDROMORPHONE HCL 90492846169 No Longer Active Nettie Newberry APRN Active CLOPIDOGREL BISULFATE 75 MG ORAL TABS 1 tab by mouth once daily CLOPIDOGREL BISULFATE 75758564315 Active Jeri Sosa RPT,RMA Active ATORVASTATIN CALCIUM 10 MG ORAL TABS 1 at bedtime ATORVASTATIN CALCIUM 69867463982 Active Jeri Sosa RPT,RMA Active LOVASTATIN 40 MG ORAL TABS Take 1 tab po every hs LOVASTATIN 78752440037 No Longer Active Harinder Hernandez DO Active PREDNISONE 20 MG TAB 2 tabs daily for 4 days, 1 tab daily for 4 days, 1/2 tab daily for 4 days PREDNISONE 51534613325 No Longer Active Harinder Hernandez DO Active LEVAQUIN 500 MG ORAL TABS Take 1 tab po daily x 8 days LEVOFLOXACIN 45753843270 No Longer Active Harinder Hernandez DO Active VENTOLIN HFA 108 (90 BASE) MCG/ACT AERS 2 -4 puffs four times a day PRN 2013 ALBUTEROL SULFATE 58362610476 No Longer Active Jeri Sosa RPT,RMA Active ACEBUTOLOL HCL 200 MG CAPS 1 cap in the morning and 2 caps in the evening ACEBUTOLOL HCL 83435892448 No Longer Active Harinder Hernandez DO Active CEFDINIR 300 MG ORAL CAPS take 1 cap po bid x 10 days CEFDINIR 02051031684 No Longer Active Harinder Hernandez DO Active LOVASTATIN 40 MG TABS 1 pill by mouth nightly for cholesterol LOVASTATIN 92767946295 No Longer Active Nettie Newberry APRN Active NITROSTAT 0.4 MG SUBL 1 tab under tongueas needed for chest pain ( may take 3 total, 5 min apart, then call 911) NITROGLYCERIN 52250524050 No Longer Active Nettie Newberry APRN Active POTASSIUM CHLORIDE CR 10 MEQ CPCR 1 capsule by mouth daily 02/14 POTASSIUM CHLORIDE 37621298153 No Longer Active Nettie Newberry APRN Active TESSALON PERLES 100 MG CAP 1 to 2 tablets by mouth 3 times daily as needed for cough BENZONATATE 29168137567 No Longer Active Nettie Newberry APRN Active THEOPHYLLINE ER 200 MG ORAL [id number] Take 1 tab every 12 hours THEOPHYLLINE 58318399643 Active Jeri Sosa RPT,RMA Active PREDNISONE 20 MG TAB 2 po qd x 5 days PREDNISONE 08891576605 No Longer Active Jae Morgan MD Active AZITHROMYCIN 250 MG TABS 2 po qd x 1 day, then 1 po qd x 4 days AZITHROMYCIN 32678142690 No Longer Active Jae Morgan MD Active PREDNISONE 20 MG TAB 1 tab twice daily for 3 day, then one daily for three days PREDNISONE 85776839058 No Longer Active Jae Morgan MD Active SINGULAIR 10 MG TABS 1 pill by mouth every evening for breathing. MONTELUKAST SODIUM 12777171940 Active Tawnya Pardo MA Active TYLENOL 325 MG TAB 3 by mouth q4h as needed ACETAMINOPHEN 40617573663 Active Harinder Hernandez DO Active POTASSIUM CHLORIDE ER 10 MEQ CR-TABS take 1 tab po daily POTASSIUM CHLORIDE 06212055234 No Longer Active Harinder Hernandez DO Active PREDNISONE 20 MG TAB 1 TID x 2 days, then 1 BID x 3 days, then 1 Daily x 3 days, then stop PREDNISONE 30366638716 No Longer Active Jillina Frazell DIETITIAN RESEARCH Active LEVAQUIN 500 MG TAB 1 tablet by mouth daily LEVOFLOXACIN 95868920953 No Longer Active Jillina Frazell DIETITIAN RESEARCH Active NEURONTIN 300 MG CAP 1 cap by mouth three times daily for restless leg 06/22 GABAPENTIN 34082158162 No Longer Active Harinder Hernandez DO Active BENZONATATE 100 MG CAPS 1 cap po TID PRN BENZONATATE 68002553988 No Longer Active Harinder Hernandez DO Active MONTELUKAST SODIUM 10 MG TABS 1 tab po in the evening MONTELUKAST SODIUM 56949040923 No Longer Active Harinder Hernandez DO Active MUPIROCIN 2 % OINT apply to affected area BID x 14 days MUPIROCIN 56757812160 No Longer Active Harinder Hernandez DO Active TYLENOL EXTRA STRENGTH 500 MG TABS as needed ACETAMINOPHEN 55723455077 No Longer Active Harinder W David DO Active PREDNISONE 10 MG TABS 1 tab po daily PREDNISONE 76607106735 No Longer Active Harinder Hernandez DO Active PREDNISONE 20 MG TAB 2 tabs daily for 4 days, 1 tab daily for 4 days, 1/2 tab daily for 4 days PREDNISONE 27670190378 No Longer Active Harinder Hernandez Active AZITHROMYCIN 250 MG TABS 2 po qd x 1 day, then 1 po qd x 4 days AZITHROMYCIN 76686596377 No Longer Active Harinder Hernandez Active PREDNISONE 20 MG TAB 3 tabs today, then 1 tab twice daily for 3 day, then one daily for three days PREDNISONE 60222414961 No Longer Active Harinder Hernandez DO Active NIFEDIAC CC 30 MG [id number] 1 tablet daily for raynaud's syndrome NIFEDIPINE 86017361063 No Longer Active Tawnya Pardo MA Active AMBIEN 10 MG TAB 1/2 tab by mouth at bedtime as needed for sleep ZOLPIDEM TARTRATE 67972060893 Active Harinder Hernandez DO Active CLONAZEPAM 1 MG TABS 1 tablet at bedtime for insomnia and restless legs 09/14 CLONAZEPAM 35529930114 Active Jeri Sosa RPT,RMA Active CLONAZEPAM 0.5 MG TABS 1 tab po daily CLONAZEPAM 41805997906 No Longer Active Harinder Hernandez DO Active PREDNISONE 10 MG TAB 1 tablet daily for COPD PREDNISONE 01505931803 Active Tawnya Pardo MA Active PROAIR HFA 108 (90 BASE) MCG/ACT AERS 2 puffs four times a day as needed 2012 ALBUTEROL SULFATE 35456636651 Active Tawnya Pardo MA Active FLOVENT HFA 110 MCG/ACT AERO 2 puffs inhaled b.i.d. FLUTICASONE PROPIONATE HFA 00207408396 Active Tawnya Pardo MA Active EPIPEN 0.3 MG/0.3ML URIEL DIRECTED EPINEPHRINE Active Jeri Sosa RPT,RMA Active ACIPHEX 20 MG TBEC 1 tab po daily RABEPRAZOLE SODIUM 40358254974 Active Tawnya Pardo MA Active CLONAZEPAM 0.5 MG TABS 1 tab po daily CLONAZEPAM 0.5 MG TABS 643521 CLONAZEPAM Inactive PREDNISONE 20 MG TAB 3 tabs today, then 1 tab twice daily for 3 day, then one daily for three days PREDNISONE 20 MG TAB 600021 PREDNISONE Inactive PREDNISONE 20 MG TAB 2 tabs daily for 4 days, 1 tab daily for 4 days, 1/2 tab daily for 4 days PREDNISONE 20 MG TAB 525346 PREDNISONE Inactive PREDNISONE 10 MG TABS 1 tab po daily PREDNISONE 10 MG TABS 533187 PREDNISONE Inactive TYLENOL EXTRA STRENGTH 500 MG TABS as needed TYLENOL EXTRA STRENGTH 500 MG TABS 678657 ACETAMINOPHEN Inactive MUPIROCIN 2 % OINT apply to affected area BID x 14 days MUPIROCIN 2 % OINT 729451 MUPIROCIN Inactive MONTELUKAST SODIUM 10 MG TABS 1 tab po in the evening MONTELUKAST SODIUM 10 MG TABS 401728 MONTELUKAST SODIUM Inactive BENZONATATE 100 MG CAPS 1 cap po TID PRN BENZONATATE 100 MG CAPS 410750 BENZONATATE Inactive NEURONTIN 300 MG CAP 1 cap by mouth three times daily for restless leg 06/22 NEURONTIN 300 MG CAP 052090 GABAPENTIN Inactive LEVAQUIN 500 MG TAB 1 tablet by mouth daily LEVAQUIN 500 MG TAB 858139 LEVOFLOXACIN Inactive PREDNISONE 20 MG TAB 1 TID x 2 days, then 1 BID x 3 days, then 1 Daily x 3 days, then stop PREDNISONE 20 MG TAB 180287 PREDNISONE Inactive POTASSIUM CHLORIDE ER 10 MEQ CR-TABS take 1 tab po daily POTASSIUM CHLORIDE ER 10 MEQ CR-TABS POTASSIUM CHLORIDE Inactive PREDNISONE 20 MG TAB 1 tab twice daily for 3 day, then one daily for three days PREDNISONE 20 MG TAB 948625 PREDNISONE Inactive TESSALON PERLES 100 MG CAP 1 to 2 tablets by mouth 3 times daily as needed for cough TESSALON PERLES 100 MG CAP 477152 BENZONATATE Inactive POTASSIUM CHLORIDE CR 10 MEQ [...] nightly for cholesterol LOVASTATIN 40 MG TABS 339933 LOVASTATIN Inactive CEFDINIR 300 MG ORAL CAPS take 1 cap po bid x 10 days CEFDINIR 300 MG ORAL CAPS 346369 CEFDINIR Inactive ACEBUTOLOL HCL 200 MG CAPS 1 cap in the morning and 2 caps in the evening ACEBUTOLOL HCL 200 MG CAPS 356317 ACEBUTOLOL HCL Inactive VENTOLIN HFA 108 (90 BASE) MCG/ACT AERS 2 -4 puffs four times a day PRN 2013 VENTOLIN HFA 108 (90 BASE) MCG/ACT AERS ALBUTEROL SULFATE Inactive LEVAQUIN 500 MG ORAL TABS Take 1 tab po daily x 8 days LEVAQUIN 500 MG ORAL TABS 551306 LEVOFLOXACIN Inactive PREDNISONE 20 MG TAB 2 tabs daily for 4 days, 1 tab daily for 4 days, 1/2 tab daily for 4 days PREDNISONE 20 MG TAB 073271 PREDNISONE Inactive LOVASTATIN 40 MG ORAL TABS Take 1 tab po every hs LOVASTATIN 40 MG ORAL TABS 842137 LOVASTATIN Inactive DILAUDID 2 MG ORAL TABS Take 1/2 tab po every 4 hours as needed for pain 2014 DILAUDID 2 MG ORAL TABS 630159 HYDROMORPHONE HCL Inactive AMITRIPTYLINE HCL 25 MG ORAL TABS 1 q hs prn AMITRIPTYLINE HCL 25 MG ORAL TABS 534859 AMITRIPTYLINE HCL Inactive MECLIZINE HCL 25 MG TAB 1 tablet three times daily for 3 days, then 1/2 tab three times daily for 3 days. MECLIZINE HCL 25 MG TAB 107224 MECLIZINE HCL Inactive AMLODIPINE BESYLATE 5 MG ORAL TABS Take 1 tab po daily AMLODIPINE BESYLATE 5 MG ORAL TABS 883693 AMLODIPINE BESYLATE Inactive TOPIRAMATE 25 MG TABS 1 tab po BID TOPIRAMATE 25 MG TABS 234541 TOPIRAMATE Inactive PREDNISONE 20 MG TAB 1 tablet twice daily for 2 days, then 1 tablet once daily for 2 days PREDNISONE 20 MG TAB 117716 PREDNISONE Inactive PREDNISONE 20 MG TAB 1 tab twice daily for 3 day, then one daily for three days PREDNISONE 20 MG TAB 535409 PREDNISONE Inactive AZITHROMYCIN 250 MG TABS 2 po qd x 1 day, then 1 po qd x 4 days AZITHROMYCIN 250 MG TABS 8254545 AZITHROMYCIN Inactive AZITHROMYCIN 250 MG TABS 2 po qd x 1 day, then 1 po qd x 4 days AZITHROMYCIN 250 MG TABS 7287090 AZITHROMYCIN Inactive PREDNISONE 20 MG TAB 2 po qd x 5 days PREDNISONE 20 MG TAB 647977 PREDNISONE Inactive Vital Signs Date Name Value [...] Panel - Chemistry sodium, serum 138 mmol/L 861-667 3601/09/24 potassium, serum 3.5 mmol/L 3.5-5.2 chloride, serum [...] Magnesium - Chemistry cholesterol, serum 180 mg/dL 270-023 1617/08/08 triglyceride, serum, fasting 92 mg/dL 30-200 HDL cholesterol, serum 66 mg/dL 32-96 LDL cholesterol, serum 96 mg/dL 0-130 sodium, serum 142 mmol/L 642-292 9077/08/08 carbon dioxide, venous blood 27.4 mmol/L 21.0-32.0 [...] 10.0-20.0 Encounters Code Encounter Date Provider Facility CPT-20340 Level 3 Est. Patient 09:58:58 CDT Harinder Cr [facility] CPT-20128 Level 3 Est. Patient 12:37:21 CDT Harinder Cr [facility] CPT-31203 Level 3 Est. Patient 18:37:17 CDT Harinder Cr [facility] CPT-04988 Level 4 Est. Patient 11:15:54 CDT Nettie Newberry APRN [facility] CPT-40056 Level 3 Est. Patient 16:42:24 CDT Harinder Cr [facility] CPT-80937 Level 3 Est. Patient 15:03:36 CDT Harinder Cr [facility] CPT-74561 Level 3 Est. Patient 15:03:20 CDT Harinder Cr [facility] CPT-63620 Level 3 Est. Patient 12:14:34 CDT Harinder Hernandez [facility] CPT-06931 Level 3 Est. Patient 13:47:15 CDT Harinder Cr [facility] CPT-47810 Level 3 Est. Patient 14:08:24 CDT Harinder Cr [facility] CPT-60502 Level 3 Est. Patient 10:07:15 CDT Harinder Cr [facility] CPT-51005 Level 3 Est. Patient 10:06:59 CDT Harinder Cr [facility] CPT-71707 Level 3 Est. Patient 15:53:29 CDT Jae Morgan MD [facility] CPT-73208 Level 3 Est. Patient 17:19:04 CDT Harinder Hernandez [facility] CPT-39006 Level 3 Est. Patient 11:13:01 CDT Harinder Hernandez [facility] CPT-40277 Level 3 Est. Patient 09:03:58 CDT Harinder Cr [facility] CPT-01986 Level 3 Est. Patient 14:46:45 VETERINARY PATHOLOGIST Harinder Hernandez [facility] CPT-35331 Level 3 Est. Patient 09:35:49 VETERINARY PATHOLOGIST Harinder Hernandez [facility] CPT-32783 Level 3 Est. Patient 09:29:37 VETERINARY PATHOLOGIST Harinder Hernandez [facility] CPT-63918 Level 3 Est. Patient 15:51:07 CDT Harinder Hernandez [facility] CPT-38993 Level 3 Est. Patient 18:13:13 CDT Harinder Hernandez [facility] CPT-92225 Level 3 Est. Patient 10:44:19 CDT Harinder Cr [facility] CPT-15862 Level 4 Est. Patient 10:07:19 VETERINARY PATHOLOGIST Harinder Hernandez [facility] CPT-71373 Level 3 Est. Patient 15:59:32 VETERINARY PATHOLOGIST Harinder Cr [facility] Procedures Code Procedure Name Date Entry Date Standard Description CPT-TCMM Transitional Care Mgmt-Moderate 11:33:57 CDT CPT-24289 No Charge Offi Visit 14:11:29 CDT CPT-02347 Magnesium - LAB USE ONLY 10:45:44 CDT CPT-97474 Lipid - LAB USE ONLY 10:45:44 CDT CPT-52542 CBC - LAB USE ONLY 10:45:44 CDT CPT-44687 Venipuncture Draw Fee 10:45:43 CDT CPT-76769 Venipuncture Draw Fee 18:21:27 CDT CPT-JTINJ Asp/Joint Injection 18:38:04 CDT CPT-11976 Immunization Each Additional Inj 17:38:04 CDT CPT-37057 Immunization Single Admin 17:38:04 CDT CPT-73231 Prevnar 13 17:38:04 CDT CPT-14147 Fluzone Quadrivalent preservative free (>=3yrs.) 17:38: 04 CDT CPT-85385 No Charge Offi Visit 11:14:03 CDT CPT-18549 Chest 2V Frontal and Lat 14:00:18 CDT CPT-OV Office Visit 16:10:28 CDT CPT-JTINJ Asp/Joint Injection 09:03:57 CDT CPT-Cryo Cryotherapy 09:35:49 VETERINARY PATHOLOGIST CPT-JTINJ Asp/Joint Injection 09:34:45 VETERINARY PATHOLOGIST CPT-J2930 Solu Medrol 125 mg (Methyl Prednisolone Sodium Succinate) 20:37:27 CDT CPT-68418 Abx/Therapy Injection 20:37:27 CDT CPT-52302 Port a cath flush 08:15:51 CDT CPT-57022 Port a cath flush 09:54:16 CDT CPT-00926 Port a cath flush 09:38:02 CDT CPT-38905 Port a cath flush 11:00:27 VETERINARY PATHOLOGIST
--- OUTSIDE RECORDS SUMMARY | 2017-12-29 03:03 | XMS REPORT | Clinical Summary ---
Author Author Admin, QIE Organization [facility] [employer] Address Unknown Phone Unavailable Allergies, Adverse Reactions, [...] right ICD-611.72 Inactive Harinder Shaye David DO Benign positional vertigo ICD-386.11 Inactive [...] then one daily for three days PREDNISONE 13341157081 Active Harinder Hernandez DO Active PREDNISONE 20 MG TAB 1 tablet twice daily for 2 days, then 1 tablet once daily for 2 days PREDNISONE 11302106386 No Longer Active Harinder Hernandez DO Active ASMANEX 120 METERED DOSES 220 MCG/INH INH AEPB 2 puffs orally twice daily MOMETASONE FUROATE 25159358391 Active Jeri Sosa RPT,RMA Active NIFEDIPINE ER 30 MG ORAL [id number] 1 daily NIFEDIPINE 67868536238 Active Tawnya Pardo MA Active TOPIRAMATE 25 MG TABS 1 tab po BID TOPIRAMATE 45464747477 No Longer Active Nettie Newberry APRN Active AMLODIPINE BESYLATE 5 MG ORAL TABS Take 1 tab po daily AMLODIPINE BESYLATE 45115190245 No Longer Active Nettie Newberry APRN Active MECLIZINE HCL 25 MG TAB 1 tablet three times daily for 3 days, then 1/2 tab three times daily for 3 days. MECLIZINE HCL 08065605589 No Longer Active Nettie Newberry APRN Active AMITRIPTYLINE HCL 25 MG ORAL TABS 1 q hs prn AMITRIPTYLINE HCL 06067311957 No Longer Active Nettie Newberry APRN Active DILAUDID 2 MG ORAL TABS Take 1/2 tab po every 4 hours as needed for pain 2014 HYDROMORPHONE HCL 85499234090 No Longer Active Nettie Newberry APRN Active CLOPIDOGREL BISULFATE 75 MG ORAL TABS 1 tab by mouth once daily CLOPIDOGREL BISULFATE 14600536176 Active Jeri Sosa RPT,RMA Active ATORVASTATIN CALCIUM 10 MG ORAL TABS 1 at bedtime ATORVASTATIN CALCIUM 93135842722 Active Jeri Sosa RPT,RMA Active LOVASTATIN 40 MG ORAL TABS Take 1 tab po every hs LOVASTATIN 67018786348 No Longer Active Harinder Hernandez DO Active PREDNISONE 20 MG TAB 2 tabs daily for 4 days, 1 tab daily for 4 days, 1/2 tab daily for 4 days PREDNISONE 13417026585 No Longer Active Harinder Hernandez DO Active LEVAQUIN 500 MG ORAL TABS Take 1 tab po daily x 8 days LEVOFLOXACIN 49642531675 No Longer Active Harinder Hernandez DO Active VENTOLIN HFA 108 (90 BASE) MCG/ACT AERS 2 -4 puffs four times a day PRN 2013 ALBUTEROL SULFATE 85604117422 No Longer Active Jeri Sosa RPT,RMA Active ACEBUTOLOL HCL 200 MG CAPS 1 cap in the morning and 2 caps in the evening ACEBUTOLOL HCL 01168128501 No Longer Active Harinder Hernandez DO Active CEFDINIR 300 MG ORAL CAPS take 1 cap po bid x 10 days CEFDINIR 14357896724 No Longer Active Harinder Hernandez DO Active LOVASTATIN 40 MG TABS 1 pill by mouth nightly for cholesterol LOVASTATIN 06203019694 No Longer Active Nettie Newberry APRN Active NITROSTAT 0.4 MG SUBL 1 tab under tongueas needed for chest pain ( may take 3 total, 5 min apart, then call 911) NITROGLYCERIN 23532506918 No Longer Active Nettie Newberry APRN Active POTASSIUM CHLORIDE CR 10 MEQ CPCR 1 capsule by mouth daily 02/14 POTASSIUM CHLORIDE 79420166075 No Longer Active Nettie Newberry APRN Active TESSALON PERLES 100 MG CAP 1 to 2 tablets by mouth 3 times daily as needed for cough BENZONATATE 40336619265 No Longer Active Nettie Newberry APRN Active THEOPHYLLINE ER 200 MG ORAL [id number] Take 1 tab every 12 hours THEOPHYLLINE 79712703233 Active Jeri Sosa RPT,RMA Active PREDNISONE 20 MG TAB 2 po qd x 5 days PREDNISONE 63433828893 No Longer Active Jae Morgan MD Active AZITHROMYCIN 250 MG TABS 2 po qd x 1 day, then 1 po qd x 4 days AZITHROMYCIN 14971113104 No Longer Active Jae Morgan MD Active PREDNISONE 20 MG TAB 1 tab twice daily for 3 day, then one daily for three days PREDNISONE 66408008187 No Longer Active Jae Morgan MD Active SINGULAIR 10 MG TABS 1 pill by mouth every evening for breathing. MONTELUKAST SODIUM 08964534976 Active Tawnya Pardo MA Active TYLENOL 325 MG TAB 3 by mouth q4h as needed ACETAMINOPHEN 72258560265 Active Harinder Hernandez DO Active POTASSIUM CHLORIDE ER 10 MEQ CR-TABS take 1 tab po daily POTASSIUM CHLORIDE 50769602694 No Longer Active Harinder Hernandez DO Active PREDNISONE 20 MG TAB 1 TID x 2 days, then 1 BID x 3 days, then 1 Daily x 3 days, then stop PREDNISONE 61565196580 No Longer Active Jillina Frazell [employer] Active LEVAQUIN 500 MG TAB 1 tablet by mouth daily LEVOFLOXACIN 60205246982 No Longer Active Jillina Frazell [employer] Active NEURONTIN 300 MG CAP 1 cap by mouth three times daily for restless leg 06/22 GABAPENTIN 01734814443 No Longer Active Harinder Hernandez DO Active BENZONATATE 100 MG CAPS 1 cap po TID PRN BENZONATATE 37821062623 No Longer Active Harinder Hernandez DO Active MONTELUKAST SODIUM 10 MG TABS 1 tab po in the evening MONTELUKAST SODIUM 90279244349 No Longer Active Harinder Hernandez DO Active MUPIROCIN 2 % OINT apply to affected area BID x 14 days MUPIROCIN 69935113204 No Longer Active Harinder Hernandez DO Active TYLENOL EXTRA STRENGTH 500 MG TABS as needed ACETAMINOPHEN 46527561643 No Longer Active Harinder Hernandez DO Active PREDNISONE 10 MG TABS 1 tab po daily PREDNISONE 57885043504 No Longer Active Harinder Hernandez DO Active PREDNISONE 20 MG TAB 2 tabs daily for 4 days, 1 tab daily for 4 days, 1/2 tab daily for 4 days PREDNISONE 12507920636 No Longer Active Harinder Hernandez DO Active AZITHROMYCIN 250 MG TABS 2 po qd x 1 day, then 1 po qd x 4 days AZITHROMYCIN 81201497968 No Longer Active Harinder Hernandez DO Active PREDNISONE 20 MG TAB 3 tabs today, then 1 tab twice daily for 3 day, then one daily for three days PREDNISONE 40132334576 No Longer Active Harinder Hernandez DO Active NIFEDIAC CC 30 MG [id number] 1 tablet daily for raynaud's syndrome NIFEDIPINE 68746189294 No Longer Active Tawnya Pardo MA Active AMBIEN 10 MG TAB 1/2 tab by mouth at bedtime as needed for sleep ZOLPIDEM TARTRATE 16508246325 Active Harinder Hernandez DO Active CLONAZEPAM 1 MG TABS 1 tablet at bedtime for insomnia and restless legs 09/14 CLONAZEPAM 66264906863 Active Jeri Sosa RPT,RMA Active CLONAZEPAM 0.5 MG TABS 1 tab po daily CLONAZEPAM 07228880320 No Longer Active Harinder Hernandez DO Active PREDNISONE 10 MG TAB 1 tablet daily for COPD PREDNISONE 32878846181 Active Tawnya Pardo MA Active PROAIR HFA 108 (90 BASE) MCG/ACT AERS 2 puffs four times a day as needed 2012 ALBUTEROL SULFATE 87986233085 Active Tawnya Pardo MA Active FLOVENT HFA 110 MCG/ACT AERO 2 puffs inhaled b.i.d. FLUTICASONE PROPIONATE HFA 68522735465 Active Tawnya Pardo MA Active EPIPEN 0.3 MG/0.3ML URIEL DIRECTED EPINEPHRINE Active Jeri Sosa RPT,RMA Active ACIPHEX 20 MG TBEC 1 tab po daily RABEPRAZOLE SODIUM 34622798089 Active Tawnya Pardo MA Active CLONAZEPAM 0.5 MG TABS 1 tab po daily CLONAZEPAM 0.5 MG TABS 395156 CLONAZEPAM Inactive PREDNISONE 20 MG TAB 3 tabs today, then 1 tab twice daily for 3 day, then one daily for three days PREDNISONE 20 MG TAB 458220 PREDNISONE Inactive PREDNISONE 20 MG TAB 2 tabs daily for 4 days, 1 tab daily for 4 days, 1/2 tab daily for 4 days PREDNISONE 20 MG TAB 721056 PREDNISONE Inactive PREDNISONE 10 MG TABS 1 tab po daily PREDNISONE 10 MG TABS 264708 PREDNISONE Inactive TYLENOL EXTRA STRENGTH 500 MG TABS as needed TYLENOL EXTRA STRENGTH 500 MG TABS 112774 ACETAMINOPHEN Inactive MUPIROCIN 2 % OINT apply to affected area BID x 14 days MUPIROCIN 2 % OINT 644888 MUPIROCIN Inactive MONTELUKAST SODIUM 10 MG TABS 1 tab po in the evening MONTELUKAST SODIUM 10 MG TABS 20010818 MONTELUKAST SODIUM Inactive BENZONATATE 100 MG CAPS 1 cap po TID PRN BENZONATATE 100 MG CAPS 043948 BENZONATATE Inactive NEURONTIN 300 MG CAP 1 cap by mouth three times daily for restless leg 06/22 NEURONTIN 300 MG CAP 051588 GABAPENTIN Inactive LEVAQUIN 500 MG TAB 1 tablet by mouth daily LEVAQUIN 500 MG TAB 190273 LEVOFLOXACIN Inactive PREDNISONE 20 MG TAB 1 TID x 2 days, then 1 BID x 3 days, then 1 Daily x 3 days, then stop PREDNISONE 20 MG TAB 686717 PREDNISONE Inactive POTASSIUM CHLORIDE ER 10 MEQ CR-TABS take 1 tab po daily POTASSIUM CHLORIDE ER 10 MEQ CR-TABS POTASSIUM CHLORIDE Inactive PREDNISONE 20 MG TAB 1 tab twice daily for 3 day, then one daily for three days PREDNISONE 20 MG TAB 000014 PREDNISONE Inactive TESSALON PERLES 100 MG CAP 1 to 2 tablets by mouth 3 times daily as needed for cough TESSALON PERLES 100 MG CAP 274118 BENZONATATE Inactive POTASSIUM CHLORIDE CR 10 MEQ [...] nightly for cholesterol LOVASTATIN 40 MG TABS 541949 LOVASTATIN Inactive CEFDINIR 300 MG ORAL CAPS take 1 cap po bid x 10 days CEFDINIR 300 MG ORAL CAPS 943429 CEFDINIR Inactive ACEBUTOLOL HCL 200 MG CAPS 1 cap in the morning and 2 caps in the evening ACEBUTOLOL HCL 200 MG CAPS 769850 ACEBUTOLOL HCL Inactive VENTOLIN HFA 108 (90 BASE) MCG/ACT AERS 2 -4 puffs four times a day PRN 2013 VENTOLIN HFA 108 (90 BASE) MCG/ACT AERS ALBUTEROL SULFATE Inactive LEVAQUIN 500 MG ORAL TABS Take 1 tab po daily x 8 days LEVAQUIN 500 MG ORAL TABS 239195 LEVOFLOXACIN Inactive PREDNISONE 20 MG TAB 2 tabs daily for 4 days, 1 tab daily for 4 days, 1/2 tab daily for 4 days PREDNISONE 20 MG TAB 617534 PREDNISONE Inactive LOVASTATIN 40 MG ORAL TABS Take 1 tab po every hs LOVASTATIN 40 MG ORAL TABS 209351 LOVASTATIN Inactive DILAUDID 2 MG ORAL TABS Take 1/2 tab po every 4 hours as needed for pain 2014 DILAUDID 2 MG ORAL TABS 488841 HYDROMORPHONE HCL Inactive AMITRIPTYLINE HCL 25 MG ORAL TABS 1 q hs prn AMITRIPTYLINE HCL 25 MG ORAL TABS 785822 AMITRIPTYLINE HCL Inactive MECLIZINE HCL 25 MG TAB 1 tablet three times daily for 3 days, then 1/2 tab three times daily for 3 days. MECLIZINE HCL 25 MG TAB 482352 MECLIZINE HCL Inactive AMLODIPINE BESYLATE 5 MG ORAL TABS Take 1 tab po daily AMLODIPINE BESYLATE 5 MG ORAL TABS 669408 AMLODIPINE BESYLATE Inactive TOPIRAMATE 25 MG TABS 1 tab po BID TOPIRAMATE 25 MG TABS 187471 TOPIRAMATE Inactive PREDNISONE 20 MG TAB 1 tablet twice daily for 2 days, then 1 tablet once daily for 2 days PREDNISONE 20 MG TAB 687887 PREDNISONE Inactive AZITHROMYCIN 250 MG TABS 2 po qd x 1 day, then 1 po qd x 4 days AZITHROMYCIN 250 MG TABS 0058846 AZITHROMYCIN Inactive AZITHROMYCIN 250 MG TABS 2 po qd x 1 day, then 1 po qd x 4 days AZITHROMYCIN 250 MG TABS 6311953 AZITHROMYCIN Inactive PREDNISONE 20 MG TAB 2 po qd x 5 days PREDNISONE 20 MG TAB 361368 PREDNISONE Inactive Vital Signs Date Name Value [...] Panel - Chemistry sodium, serum 138 mmol/L 377-742 0993/09/24 potassium, serum 3.5 mmol/L 3.5-5.2 chloride, serum [...] Magnesium - Chemistry cholesterol, serum 180 mg/dL 787-940 5040/08/08 triglyceride, serum, fasting 92 mg/dL 30-200 HDL cholesterol, serum 66 mg/dL 32-96 LDL cholesterol, serum 96 mg/dL 0-130 sodium, serum 142 mmol/L 208-805 8159/08/08 carbon dioxide, venous blood 27.4 mmol/L 21.0-32.0 [...] 10.0-20.0 Encounters Code Encounter Date Provider Facility CPT-37967 Level 3 Est. Patient 09:58:58 CDT Harinder Cr [facility] CPT-71515 Level 3 Est. Patient 12:37:21 CDT Harinder Cr [facility] CPT-50357 Level 3 Est. Patient 18:37:17 CDT Harinder Cr [facility] CPT-10541 Level 4 Est. Patient 11:15:54 CDT Nettie Newberry Formerly named [facility] CPT-12836 Level 3 Est. Patient 16:42:24 CDT Harinder Cr [facility] CPT-07136 Level 3 Est. Patient 15:03:36 CDT Harinder Cr [facility] CPT-24426 Level 3 Est. Patient 15:03:20 CDT Harinder Cr [facility] CPT-38499 Level 3 Est. Patient 12:14:34 CDT Harinder Cr [facility] CPT-93420 Level 3 Est. Patient 13:47:15 CDT Harinder Hernandez [facility] CPT-21174 Level 3 Est. Patient 14:08:24 CDT Harinder Hernandez [facility] CPT-93560 Level 3 Est. Patient 10:07:15 CDT Harinder Hernandez [facility] CPT-72096 Level 3 Est. Patient 10:06:59 CDT Harinder Hernandez [facility] CPT-99460 Level 3 Est. Patient 15:53:29 CDT Jae Morgan MD [facility] CPT-42612 Level 3 Est. Patient 17:19:04 CDT Harinder Hernandez [facility] CPT-07899 Level 3 Est. Patient 11:13:01 CDT Harinder Hernandez [facility] CPT-49964 Level 3 Est. Patient 09:03:58 CDT Harinder Hernandez [facility] CPT-87630 Level 3 Est. Patient 14:46:45 [employer] Harinder Hernandez [facility] CPT-46272 Level 3 Est. Patient 09:35:49 [employer] Harinder Hernandez [facility] CPT-38910 Level 3 Est. Patient 09:29:37 [employer] Harinder Hernandez [facility] CPT-52667 Level 3 Est. Patient 15:51:07 CDT Harinder Hernandez [facility] CPT-66940 Level 3 Est. Patient 18:13:13 CDT Harinder Hernandez [facility] CPT-32816 Level 3 Est. Patient 10:44:19 CDT Harinder Shaye Hernandez [facility] CPT-52205 Level 4 Est. Patient 10:07:19 [employer] Harinder Hernandez [facility] CPT-07990 Level 3 Est. Patient 15:59:32 [employer] Harinder Cr [facility] Procedures Code Procedure Name Date Entry Date Standard Description CPT-71525 Magnesium - LAB USE ONLY 10:45:44 CDT CPT-84846 Lipid - LAB USE ONLY 10:45:44 CDT CPT-43444 CBC - LAB USE ONLY 10:45:44 CDT CPT-81120 Venipuncture Draw Fee 10:45:43 CDT CPT-86125 Venipuncture Draw Fee 18:21:27 CDT CPT-JTINJ Asp/Joint Injection 18:38:04 CDT CPT-58173 Immunization Each Additional Inj 17:38:04 CDT CPT-56230 Immunization Single Admin 17:38:04 CDT CPT-21291 Prevnar 13 17:38:04 CDT CPT-24215 Fluzone Quadrivalent preservative free (>=3yrs.) 17:38: 04 CDT CPT-28660 No Charge Offi Visit 11:14:03 CDT CPT-26300 Chest 2V Frontal and Lat 14:00:18 CDT CPT-OV Office Visit 16:10:28 CDT CPT-JTINJ Asp/Joint Injection 09:03:57 CDT CPT-Cryo Cryotherapy 09:35:49 [employer] CPT-JTINJ Asp/Joint Injection 09:34:45 [employer] NET CPT-J2930 Solu Medrol 125 mg (Methyl Prednisolone Sodium Succinate) 20:37:27 CDT CPT-21889 Abx/Therapy Injection 20:37:27 CDT CPT-54653 Port a cath flush 08:15:51 CDT CPT-98854 Port a cath flush 09:54:16 T CPT-59484 Port a cath flush 09:38:02 T CPT-89561 Port a cath flush 11:00:27 [employer] NET
--- OUTSIDE RECORDS SUMMARY | 2017-12-29 03:05 | XMS REPORT | Clinical Summary ---
Author Author Admin, QIE Organization [facility] Address Unknown Phone Unavailable Allergies, Adverse Reactions, [...] classified Preventive health care V70.0 Active Harinder Hernadnez DO Routine general medical examination at a [...] MEQ CPCR 1 capsule BID POTASSIUM CHLORIDE [id number] Active Kortney Mccain Active FLUOXETINE HCL 10 MG ORAL CAPS 1 po qd for depression/anxiety FLUOXETINE HCL 12143701008 Active Harinder Hernandez DO Active VOLTAREN 1 % GEL apply q 6-8 hour to left arm as needed for pain DICLOFENAC SODIUM 65038746712 Active Harinder Hernandez DO Active LASIX 20 MG TAB 1 tablet by mouth every morning FUROSEMIDE 92065281502 Prince Mccain Active POTASSIUM CHLORIDE 20 MEQ ORAL PACK 1 tab po BID POTASSIUM CHLORIDE 15968016871 Prince Mccain Active ALBUTEROL SULFATE 0.083 % NEBU SOLN 1 vial neb q 4hrs for severe asthma. 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 FLUTICASONE PROPIONATE HFA 62665431608 Active Harinder Hernandez DO Active EPIPEN 2-BRUNA 0.3 MG/0.3ML INJ SOAJ 1 INJ NEEDED EPINEPHRINE 02539378941 Active Harinder Hernandez DO Active PREDNISONE 20 MG TAB 1 tab twice daily for 3 day, then one daily for three days PREDNISONE 60042379667 No Longer Active Harinder Hernandez DO Active PREDNISONE 20 MG TAB 1 tablet twice daily for 2 days, then 1 tablet once daily for 2 days PREDNISONE 17272048391 No Longer Active Harinder Hernandez DO Active ASMANEX 120 METERED DOSES 220 MCG/INH INH AEPB 2 puffs orally twice daily MOMETASONE FUROATE 66913812066 Active Jeri Sosa LPN Active TOPIRAMATE 25 MG TABS 1 tab po BID TOPIRAMATE 05309906994 No Longer Active Nettie Newberry APRN Active AMLODIPINE BESYLATE 5 MG ORAL TABS Take 1 tab po daily AMLODIPINE BESYLATE 35984752845 No Longer Active Nettie Newberry APRN Active MECLIZINE HCL 25 MG TAB 1 tablet three times daily for 3 days, then 1/2 tab three times daily for 3 days. MECLIZINE HCL 73045466080 No Longer Active Nettie Newberry APRN Active AMITRIPTYLINE HCL 25 MG ORAL TABS 1 q hs prn AMITRIPTYLINE HCL 47830033535 No Longer Active Nettie Newberry APRN Active DILAUDID 2 MG ORAL TABS Take 1/2 tab po every 4 hours as needed for pain 2014 HYDROMORPHONE HCL 24408743088 No Longer Active Nettie Newberry APRN Active CLOPIDOGREL BISULFATE 75 MG ORAL TABS 1 tab by mouth once daily CLOPIDOGREL BISULFATE 78271108494 Active Harinder Hernandez DO Active ATORVASTATIN CALCIUM 10 MG ORAL TABS 1 at bedtime ATORVASTATIN CALCIUM 12605959927 Active Tawnya Pardo MA Active LOVASTATIN 40 MG ORAL TABS Take 1 tab po every hs LOVASTATIN 16590305831 No Longer Active Harinder Hernandez DO Active PREDNISONE 20 MG TAB 2 tabs daily for 4 days, 1 tab daily for 4 days, 1/2 tab daily for 4 days PREDNISONE 73916404736 No Longer Active Harinder Hernandez DO Active LEVAQUIN 500 MG ORAL TABS Take 1 tab po daily x 8 days LEVOFLOXACIN 01908446253 No Longer Active Harinder Hernandez DO Active VENTOLIN HFA 108 (90 BASE) MCG/ACT AERS 2 -4 puffs four times a day PRN 2013 ALBUTEROL SULFATE 48573951557 No Longer Active Jeri Sosa LPN Active ACEBUTOLOL HCL 200 MG CAPS 1 cap in the morning and 2 caps in the evening ACEBUTOLOL HCL 24934295609 No Longer Active Harinder Hernandez DO Active CEFDINIR 300 MG ORAL CAPS take 1 cap po bid x 10 days CEFDINIR 64905102150 No Longer Active Harinder Hernandez DO Active LOVASTATIN 40 MG TABS 1 pill by mouth nightly for cholesterol LOVASTATIN 97187485881 No Longer Active Nettie Newberry APRN Active NITROSTAT 0.4 MG SUBL 1 tab under tongueas needed for chest pain ( may take 3 total, 5 min apart, then call 911) NITROGLYCERIN 24231407295 No Longer Active Nettie Newberry APRN Active POTASSIUM CHLORIDE CR 10 MEQ CPCR 1 capsule by mouth daily 02/14 POTASSIUM CHLORIDE 02086618278 No Longer Active Nettie Newberry APRN Active TESSALON PERLES 100 MG CAP 1 to 2 tablets by mouth 3 times daily as needed for cough BENZONATATE 97564956490 No Longer Active Nettie Newberry APRN Active THEOPHYLLINE ER 200 MG ORAL [id number] Take 1 tab every 12 hours THEOPHYLLINE 15190232734 Active Kortneyalice Mccain Active PREDNISONE 20 MG TAB 2 po qd x 5 days PREDNISONE 50238016883 No Longer Active Jae Morgan MD Active AZITHROMYCIN 250 MG TABS 2 po qd x 1 day, then 1 po qd x 4 days AZITHROMYCIN 88723461548 No Longer Active Jae Morgan MD Active PREDNISONE 20 MG TAB 1 tab twice daily for 3 day, then one daily for three days PREDNISONE 48610623145 No Longer Active Jae Morgan MD Active SINGULAIR 10 MG TABS 1 pill by mouth every evening for breathing. MONTELUKAST SODIUM 37810298508 Active Tawnya Pardo MA Active TYLENOL 325 MG TAB 3 by mouth q4h as needed ACETAMINOPHEN 94864749740 Active Harinder Hernandez DO Active POTASSIUM CHLORIDE ER 10 MEQ CR-TABS take 1 tab po daily POTASSIUM CHLORIDE 22395150868 No Longer Active Harinder Hernandez DO Active PREDNISONE 20 MG TAB 1 TID x 2 days, then 1 BID x 3 days, then 1 Daily x 3 days, then stop PREDNISONE 19765604771 No Longer Active Jillina Frashai MCCRAY Active LEVAQUIN 500 MG TAB 1 tablet by mouth daily LEVOFLOXACIN 38324451726 No Longer Active Jillina Frazell MAHENDRA Active NEURONTIN 300 MG CAP 1 cap by mouth three times daily for restless leg 06/22 GABAPENTIN 90935505655 No Longer Active Harinder Hernandez DO Active BENZONATATE 100 MG CAPS 1 cap po TID PRN BENZONATATE 60195011732 No Longer Active Harinder Hernandez DO Active MONTELUKAST SODIUM 10 MG TABS 1 tab po in the evening MONTELUKAST SODIUM 62794393227 No Longer Active Harinder Hernandez DO Active MUPIROCIN 2 % OINT apply to affected area BID x 14 days MUPIROCIN 27129252651 No Longer Active Harinder Hernandez DO Active TYLENOL EXTRA STRENGTH 500 MG TABS as needed ACETAMINOPHEN 74143747829 No Longer Active Harinder Hernandez DO Active PREDNISONE 10 MG TABS 1 tab po daily PREDNISONE 65813514224 No Longer Active Harinder Hernandez DO Active PREDNISONE 20 MG TAB 2 tabs daily for 4 days, 1 tab daily for 4 days, 1/2 tab daily for 4 days PREDNISONE 97157004793 No Longer Active Harinder Hernandez DO Active AZITHROMYCIN 250 MG TABS 2 po qd x 1 day, then 1 po qd x 4 days AZITHROMYCIN 41829694403 No Longer Active Harinder Hernandez DO Active PREDNISONE 20 MG TAB 3 tabs today, then 1 tab twice daily for 3 day, then one daily for three days PREDNISONE 75690407368 No Longer Active Harinder Hernandez DO Active NIFEDIAC CC 30 MG [id number] 1 tablet daily for raynaud's syndrome NIFEDIPINE 74372898889 No Longer Active Tawnya Pardo MA Active AMBIEN 10 MG TAB 1/2 tab by mouth at bedtime as needed for sleep ZOLPIDEM TARTRATE 73439625498 Active Ciera Pimentel Active CLONAZEPAM 1 MG TABS 1 tablet at bedtime for insomnia and restless legs 09/14 CLONAZEPAM 84992415360 Active Harinder Hrenandez DO Active CLONAZEPAM 0.5 MG TABS 1 tab po daily CLONAZEPAM 25560007533 No Longer Active Harinder Hernandez DO Active PREDNISONE 10 MG TAB 1 tablet daily for COPD PREDNISONE 64954999375 Active Ciera Pimentel Active PROAIR HFA 108 (90 BASE) MCG/ACT AERS 2 puffs four times a day as needed 2012 ALBUTEROL SULFATE 80349352840 Active Harinder Hernandez DO Active FLOVENT HFA 110 MCG/ACT AERO 2 puffs inhaled b.i.d. FLUTICASONE PROPIONATE HFA 13210404348 Active Kortney Mccain Active ACIPHEX 20 MG TBEC 1 tab po daily RABEPRAZOLE SODIUM 89098142988 Active Kaylah Newberry Active CLONAZEPAM 0.5 MG TABS 1 tab po daily CLONAZEPAM 0.5 MG TABS 982534 CLONAZEPAM Inactive PREDNISONE 20 MG TAB 3 tabs today, then 1 tab twice daily for 3 day, then one daily for three days PREDNISONE 20 MG TAB 465910 PREDNISONE Inactive PREDNISONE 20 MG TAB 2 tabs daily for 4 days, 1 tab daily for 4 days, 1/2 tab daily for 4 days PREDNISONE 20 MG TAB 298647 PREDNISONE Inactive PREDNISONE 10 MG TABS 1 tab po daily PREDNISONE 10 MG TABS 628003 PREDNISONE Inactive TYLENOL EXTRA STRENGTH 500 MG TABS as needed TYLENOL EXTRA STRENGTH 500 MG TABS 427578 ACETAMINOPHEN Inactive MUPIROCIN 2 % OINT apply to affected area BID x 14 days MUPIROCIN 2 % OINT 442598 MUPIROCIN Inactive MONTELUKAST SODIUM 10 MG TABS 1 tab po in the evening MONTELUKAST SODIUM 10 MG TABS 516730 MONTELUKAST SODIUM Inactive BENZONATATE 100 MG CAPS 1 cap po TID PRN BENZONATATE 100 MG CAPS 199990 BENZONATATE Inactive NEURONTIN 300 MG CAP 1 cap by mouth three times daily for restless leg 06/22 NEURONTIN 300 MG CAP 498918 GABAPENTIN Inactive LEVAQUIN 500 MG TAB 1 tablet by mouth daily LEVAQUIN 500 MG TAB 870524 LEVOFLOXACIN Inactive PREDNISONE 20 MG TAB 1 TID x 2 days, then 1 BID x 3 days, then 1 Daily x 3 days, then stop PREDNISONE 20 MG TAB 012094 PREDNISONE Inactive POTASSIUM CHLORIDE ER 10 MEQ CR-TABS take 1 tab po daily POTASSIUM CHLORIDE ER 10 MEQ CR-TABS POTASSIUM CHLORIDE Inactive PREDNISONE 20 MG TAB 1 tab twice daily for 3 day, then one daily for three days PREDNISONE 20 MG TAB 563389 PREDNISONE Inactive TESSALON PERLES 100 MG CAP 1 to 2 tablets by mouth 3 times daily as needed for cough TESSALON PERLES 100 MG CAP 067355 BENZONATATE Inactive POTASSIUM CHLORIDE CR 10 MEQ CPCR 1 capsule by mouth daily 02/14 POTASSIUM CHLORIDE CR 10 MEQ CPCR POTASSIUM CHLORIDE Inactive NITROSTAT 0.4 MG SUBL 1 tab under tongueas needed for chest pain ( may take 3 total, 5 min apart, then call 911) NITROSTAT 0.4 MG SUBL 959213 NITROGLYCERIN Inactive LOVASTATIN 40 MG TABS 1 pill by mouth nightly for cholesterol LOVASTATIN 40 MG TABS 825455 LOVASTATIN Inactive CEFDINIR 300 MG ORAL CAPS take 1 cap po bid x 10 days CEFDINIR 300 MG ORAL CAPS 213335 CEFDINIR Inactive ACEBUTOLOL HCL 200 MG CAPS 1 cap in the morning and 2 caps in the evening ACEBUTOLOL HCL 200 MG CAPS 669954 ACEBUTOLOL HCL Inactive VENTOLIN HFA 108 (90 BASE) MCG/ACT AERS 2 -4 puffs four times a day PRN 2013 VENTOLIN HFA 108 (90 BASE) MCG/ACT AERS ALBUTEROL SULFATE Inactive LEVAQUIN 500 MG ORAL TABS Take 1 tab po daily x 8 days LEVAQUIN 500 MG ORAL TABS 126100 LEVOFLOXACIN Inactive PREDNISONE 20 MG TAB 2 tabs daily for 4 days, 1 tab daily for 4 days, 1/2 tab daily for 4 days PREDNISONE 20 MG TAB 738163 PREDNISONE Inactive LOVASTATIN 40 MG ORAL TABS Take 1 tab po every hs LOVASTATIN 40 MG ORAL TABS LOVASTATIN Inactive DILAUDID 2 MG ORAL TABS Take 1/2 tab po every 4 hours as needed for pain 2014 DILAUDID 2 MG ORAL TABS 746806 HYDROMORPHONE HCL Inactive AMITRIPTYLINE HCL 25 MG ORAL TABS 1 q hs prn AMITRIPTYLINE HCL 25 MG ORAL TABS 159189 AMITRIPTYLINE HCL Inactive MECLIZINE HCL 25 MG TAB 1 tablet three times daily for 3 days, then 1/2 tab three times daily for 3 days. MECLIZINE HCL 25 MG TAB 078528 MECLIZINE HCL Inactive AMLODIPINE BESYLATE 5 MG ORAL TABS Take 1 tab po daily AMLODIPINE BESYLATE 5 MG ORAL TABS 015062 AMLODIPINE BESYLATE Inactive TOPIRAMATE 25 MG TABS 1 tab po BID TOPIRAMATE 25 MG TABS 121132 TOPIRAMATE Inactive PREDNISONE 20 MG TAB 1 tablet twice daily for 2 days, then 1 tablet once daily for 2 days PREDNISONE 20 MG TAB 059009 PREDNISONE Inactive PREDNISONE 20 MG TAB 1 tab twice daily for 3 day, then one daily for three days PREDNISONE 20 MG TAB 646203 PREDNISONE Inactive NIFEDIPINE ER 30 MG ORAL [id number] 1 daily NIFEDIPINE ER 30 MG ORAL [id number] NIFEDIPINE Inactive AMLODIPINE BESYLATE 5 MG TABS 1 tablet by mouth daily AMLODIPINE BESYLATE 5 MG TABS 379830 AMLODIPINE BESYLATE Inactive AZITHROMYCIN 250 MG TABS 2 po qd x 1 day, then 1 po qd x 4 days AZITHROMYCIN 250 MG TABS 5071978 AZITHROMYCIN Inactive AZITHROMYCIN 250 MG TABS 2 po qd x 1 day, then 1 po qd x 4 days AZITHROMYCIN 250 MG TABS 8552594 AZITHROMYCIN Inactive PREDNISONE 20 MG TAB 2 po qd x 5 days PREDNISONE 20 MG TAB 312510 PREDNISONE Inactive Vital Signs Date Name Value [...] Panel - Chemistry sodium, serum 137 mmol/L 955-447 4861/01/03 potassium, serum 3.4 mmol/L 3.5-5.2 chloride, serum 102 mmol/L 98-107 carbon dioxide, venous blood 29.2 mmol/L 21.0-32.0 blood glucose 87 mg/dL 65-110 calcium, serum 8.5 mg/dL 8.5-10.1 urea nitrogen, blood 8 mg/dL 7-18 creatinine, serum 0.82 mg/dL 0.55-1.30 sodium, serum 140 mmol/L 554-401 7444/07/13 potassium, serum 3.2 mmol/L 3.5-5.2 chloride, serum [...] Magnesium - Chemistry cholesterol, serum 180 mg/dL 901-016 4286/08/08 triglyceride, serum, fasting 92 mg/dL 30-200 HDL cholesterol, serum 66 mg/dL 32-96 LDL cholesterol, serum 96 mg/dL 0-130 sodium, serum 142 mmol/L 624-306 9547/08/08 carbon dioxide, venous blood 27.4 mmol/L 21.0-32.0 [...] 10.0-20.0 Encounters Code Encounter Date Provider Facility CPT-25329 Level 4 Est. Patient 09:15:13 CDT Harinder Cr [facility] CPT-19100 Level 3 Est. Patient 11:51:58 CDT [facility] CPT-57171 Level 3 Est. Patient 11:30:05 CDT [facility] CPT-73752 Level 4 Est. Patient 10:19:23 CDT [facility] CPT-94917 Level 3 Est. Patient 09:58:58 CDT [facility] CPT-58433 Level 3 Est. Patient 12:37:21 CDT [facility] CPT-60639 Level 3 Est. Patient 18:37:17 CDT [facility] CPT-12403 Level 4 Est. Patient 11:15:54 CDT Nettie Newberry [facility] CPT-84555 Level 3 Est. Patient 16:42:24 CDT [facility] CPT-47487 Level 3 Est. Patient 15:03:36 CDT [facility] CPT-62205 Level 3 Est. Patient 15:03:20 CDT [facility] CPT-76095 Level 3 Est. Patient 12:14:34 CDT Harinder Hernandez [facility] CPT-73604 Level 3 Est. Patient 13:47:15 CDT Harinder Hernandez [facility] CPT-73310 Level 3 Est. Patient 14:08:24 CDT Harinder Hernandez [facility] CPT-05718 Level 3 Est. Patient 10:07:15 CDT Harinder Hernandez [facility] CPT-08976 Level 3 Est. Patient 10:06:59 CDT Harinder Hernandez [facility] CPT-42185 Level 3 Est. Patient 15:53:29 CDT Jae Morgan [facility] CPT-76233 Level 3 Est. Patient 17:19:04 CDT Harinder Hernandez [facility] CPT-54345 Level 3 Est. Patient 11:13:01 CDT Harinder Hernandez [facility] CPT-83647 Level 3 Est. Patient 09:03:58 CDT Harinder Cr [facility] CPT-41241 Level 3 Est. Patient 14:46:45 HELP DESK SPECIALIST Harinder Hernandez [facility] CPT-37563 Level 3 Est. Patient 09:35:49 HELP DESK SPECIALIST Harinder Hernandez [facility] CPT-41353 Level 3 Est. Patient 09:29:37 HELP DESK SPECIALIST Harinder Hernandez [facility] CPT-66641 Level 3 Est. Patient 15:51:07 CDT Harinder Hernandez [facility] CPT-23838 Level 3 Est. Patient 18:13:13 CDT Harinder Shaye Hernandez [facility] CPT-74157 Level 3 Est. Patient 10:44:19 CDT Harinder Cr David [facility] CPT-83697 Level 4 Est. Patient 10:07:19 HELP DESK SPECIALIST Harinder Shaye David [facility] CPT-57074 Level 3 Est. Patient 15:59:32 HELP DESK SPECIALIST Harinder Cr [facility] Procedures Code Procedure Name Date Entry Date Standard Description CPT-29497 Port a cath flush 13:46:05 CDT CPT-15497 Hip, complete, 2-3 views - XRAY USE ONLY 10:28:40 CDT CPT-09708 BMP - LAB USE ONLY 16:45:09 HELP DESK SPECIALIST CPT-51052 Port a cath flush 12:00:13 HELP DESK SPECIALIST CPT-TCMM Transitional Care Mgmt-Moderate 11:20:16 HELP DESK SPECIALIST CPT-17064 First Vx - Ix admin for Medicare patients 17:35:15 CDT CPT-01738 Fluzone Preservative Free Intramuscular Suspension 17:35 :15 CDT CPT-50571 Microalbumin - LAB USE ONLY 11:52:05 CDT CPT-TCMM Transitional Care Mgmt-Moderate 11:33:57 CDT CPT-15856 No Charge Offi Visit 14:11:29 CDT CPT-54333 Magnesium - LAB USE ONLY 10:45:44 CDT CPT-48449 Lipid - LAB USE ONLY 10:45:44 CDT CPT-71950 CBC - LAB USE ONLY 10:45:44 CDT CPT-81780 Venipuncture Draw Fee 10:45:43 CDT CPT-45170 Venipuncture Draw Fee 18:21:27 CDT CPT-JTINJ Asp/Joint Injection 18:38:04 CDT CPT-94518 Immunization Each Additional Inj 17:38:04 CDT CPT-94933 Immunization Single Admin 17:38:04 CDT CPT-02097 Prevnar 13 17:38:04 CDT CPT-24159 Fluzone Quadrivalent preservative free (>=3yrs.) 17:38: 04 CDT CPT-10762 No Charge Offi Visit 11:14:03 CDT CPT-06249 Chest 2V Frontal and Lat 14:00:18 CDT CPT-OV Office Visit 16:10:28 CDT CPT-JTINJ Asp/Joint Injection 09:03:57 CDT CPT-Cryo Cryotherapy 09:35:49 HELP DESK SPECIALIST CPT-JTINJ Asp/Joint Injection 09:34:45 HELP DESK SPECIALIST CPT-J2930 Solu Medrol 125 mg (Methyl Prednisolone Sodium Succinate) 20:37:27 CDT CPT-62667 Abx/Therapy Injection 20:37:27 CDT CPT-62209 Port a cath flush 08:15:51 CDT CPT-99473 Port a cath flush 09:54:16 CDT CPT-11409 Port a cath flush 09:38:02 CDT CPT-33851 Port a cath flush 11:00:27 HELP DESK SPECIALIST
--- OUTSIDE RECORDS SUMMARY | 2017-12-29 03:07 | XMS REPORT | Clinical Summary ---
Author Author Admin, QIE Organization [facility] [employer] Address Unknown Phone Unavailable Allergies, Adverse Reactions, [...] Active Harinder Hernandez DO VALIUM Critical Active Harindre Hernandez DO DEMEROL Critical Active Harinder Hernandez [...] unspecified site Weakness, muscle 728.87 Active Harinder rC David DO Muscle weakness (generalized) CVA with [...] tab po q day therafter. POTASSIUM CHLORIDE 36861019848 Active Kortney Mccain Active POTASSIUM CHLORIDE CR 10 MEQ CPCR 1 capsule BID POTASSIUM CHLORIDE 24032034734 No Longer Active Kortney Mccain Active LASIX 20 MG TAB 1 tablet by mouth every morning FUROSEMIDE 34663428912 No Longer Active Kortney Mccain Active SPIRONOLACTONE 25 MG TAB 1 tablet by mouth daily SPIRONOLACTONE 70102408615 Active Ciera Pimentel Active FLUOXETINE HCL 10 MG ORAL CAPS 1 po qd for depression/anxiety FLUOXETINE HCL 07157515471 Active Harinder Hernandez DO Active VOLTAREN 1 % GEL apply q 6-8 hour to left arm as needed for pain DICLOFENAC SODIUM 64416780977 Active Harinder Hernandez DO Active ALBUTEROL SULFATE 0.083 % NEBU SOLN 1 vial neb q 4hrs for severe asthma. 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 FLUTICASONE PROPIONATE HFA 57684622054 Active Harinder Hernandez DO Active EPIPEN 2-BRUNA 0.3 MG/0.3ML INJ SOAJ 1 INJ NEEDED EPINEPHRINE 35243668461 Active Harinder Hernandez DO Active PREDNISONE 20 MG TAB 1 tab twice daily for 3 day, then one daily for three days PREDNISONE 32653203272 No Longer Active Harinder Hernandez DO Active PREDNISONE 20 MG TAB 1 tablet twice daily for 2 days, then 1 tablet once daily for 2 days PREDNISONE 51459944768 No Longer Active Harinder Hernandez DO Active ASMANEX 120 METERED DOSES 220 MCG/INH INH AEPB 2 puffs orally twice daily MOMETASONE FUROATE 91341121282 Active Jeri Sosa LPN Active TOPIRAMATE 25 MG TABS 1 tab po BID TOPIRAMATE 53528062023 No Longer Active Nettie Newberry APRN Active AMLODIPINE BESYLATE 5 MG ORAL TABS Take 1 tab po daily AMLODIPINE BESYLATE 51177225574 No Longer Active Nettie Newberry APRN Active MECLIZINE HCL 25 MG TAB 1 tablet three times daily for 3 days, then 1/2 tab three times daily for 3 days. MECLIZINE HCL 63148254477 No Longer Active Nettie Newberry MAHENDRA Active AMITRIPTYLINE HCL 25 MG ORAL TABS 1 q hs prn AMITRIPTYLINE HCL 02627863048 No Longer Active Nettie Newberry MAHENDRA Active DILAUDID 2 MG ORAL TABS Take 1/2 tab po every 4 hours as needed for pain 2014 HYDROMORPHONE HCL 77673871423 No Longer Active Nettieog Newberry APRN Active CLOPIDOGREL BISULFATE 75 MG ORAL TABS 1 tab by mouth once daily CLOPIDOGREL BISULFATE 47294096877 Active Harinder Hernandez DO Active ATORVASTATIN CALCIUM 10 MG ORAL TABS 1 at bedtime ATORVASTATIN CALCIUM 26547624096 Active Tawnya Pardo MA Active LOVASTATIN 40 MG ORAL TABS Take 1 tab po every hs LOVASTATIN 37064133254 No Longer Active Harinder Hernandez DO Active PREDNISONE 20 MG TAB 2 tabs daily for 4 days, 1 tab daily for 4 days, 1/2 tab daily for 4 days PREDNISONE 13585558220 No Longer Active Harinder Hernandez DO Active LEVAQUIN 500 MG ORAL TABS Take 1 tab po daily x 8 days LEVOFLOXACIN 93101837340 No Longer Active Harinder Hernandez DO Active VENTOLIN HFA 108 (90 BASE) MCG/ACT AERS 2 -4 puffs four times a day PRN 2013 ALBUTEROL SULFATE 52538395220 No Longer Active eJri Sosa LPN Active ACEBUTOLOL HCL 200 MG CAPS 1 cap in the morning and 2 caps in the evening ACEBUTOLOL HCL 67787304120 No Longer Active Harinder Hernandez DO Active CEFDINIR 300 MG ORAL CAPS take 1 cap po bid x 10 days CEFDINIR 95165225390 No Longer Active Harinder Hernandez DO Active LOVASTATIN 40 MG TABS 1 pill by mouth nightly for cholesterol LOVASTATIN 17043092328 No Longer Active Nettie Rohith MAHENDRA Active NITROSTAT 0.4 MG SUBL 1 tab under tongueas needed for chest pain ( may take 3 total, 5 min apart, then call 911) NITROGLYCERIN 45632919985 No Longer Active Nettie Newberry MAHENDRA Active POTASSIUM CHLORIDE CR 10 MEQ CPCR 1 capsule by mouth daily 02/14 POTASSIUM CHLORIDE 41740878547 [facility] TESSALON PERLES 100 MG CAP 1 to 2 tablets by mouth 3 times daily as needed for cough BENZONATATE 45736713055 No Longer Active Nettie Newberry MAHENDRA Active THEOPHYLLINE ER 200 MG ORAL [id number] Take 1 tab every 12 hours THEOPHYLLINE 86765070237 Active Harinder Hernandez DO Active PREDNISONE 20 MG TAB 2 po qd x 5 days PREDNISONE 99898017467 No Longer Active Jae Morgan MD Active AZITHROMYCIN 250 MG TABS 2 po qd x 1 day, then 1 po qd x 4 days AZITHROMYCIN 18122591583 No Longer Active Jae Morgan MD Active PREDNISONE 20 MG TAB 1 tab twice daily for 3 day, then one daily for three days PREDNISONE 65743336706 No Longer Active Jae Morgan MD Active SINGULAIR 10 MG TABS 1 pill by mouth every evening for breathing. MONTELUKAST SODIUM 48027512156 Active Tawnya Pardo MA Active TYLENOL 325 MG TAB 3 by mouth q4h as needed ACETAMINOPHEN 48065780907 Active Harinder Hernandez DO Active POTASSIUM CHLORIDE ER 10 MEQ CR-TABS take 1 tab po daily POTASSIUM CHLORIDE 60619037764 No Longer Active Harinder Hernandez DO Active PREDNISONE 20 MG TAB 1 TID x 2 days, then 1 BID x 3 days, then 1 Daily x 3 days, then stop PREDNISONE 55743352086 No Longer Active John Montemayor APRN Active LEVAQUIN 500 MG TAB 1 tablet by mouth daily LEVOFLOXACIN 17378606739 No Longer Active John Montemayor [employer] Active NEURONTIN 300 MG CAP 1 cap by mouth three times daily for restless leg 06/22 GABAPENTIN 34674071686 No Longer Active Harinder Hernandez DO Active BENZONATATE 100 MG CAPS 1 cap po TID PRN BENZONATATE 16838277047 No Longer Active Harinder Hernandez DO Active MONTELUKAST SODIUM 10 MG TABS 1 tab po in the evening MONTELUKAST SODIUM 32891288729 No Longer Active Harinder Hernandez DO Active MUPIROCIN 2 % OINT apply to affected area BID x 14 days MUPIROCIN 52678775832 No Longer Active Harinder Hernandez DO Active TYLENOL EXTRA STRENGTH 500 MG TABS as needed ACETAMINOPHEN 15399069330 No Longer Active Harinder Hernandez DO Active PREDNISONE 10 MG TABS 1 tab po daily PREDNISONE 07042063110 No Longer Active Harinder Hernandez DO Active PREDNISONE 20 MG TAB 2 tabs daily for 4 days, 1 tab daily for 4 days, 1/2 tab daily for 4 days PREDNISONE 12292401923 No Longer Active Harinder Hernandez DO Active AZITHROMYCIN 250 MG TABS 2 po qd x 1 day, then 1 po qd x 4 days AZITHROMYCIN 45343995990 No Longer Active Harinder Hernandez DO Active PREDNISONE 20 MG TAB 3 tabs today, then 1 tab twice daily for 3 day, then one daily for three days PREDNISONE 29564507189 No Longer Active Harinder Hernandez DO Active NIFEDIAC CC 30 MG [id number] 1 tablet daily for raynaud's syndrome NIFEDIPINE 85744167320 No Longer Active Tawnya Pardo MA Active AMBIEN 10 MG TAB 1/2 tab by mouth at bedtime as needed for sleep ZOLPIDEM TARTRATE 55763239260 Active Harinder Hernandez DO Active CLONAZEPAM 1 MG TABS 1 tablet at bedtime for insomnia and restless legs 09/14 CLONAZEPAM 47132256481 Active Harinder Hernandez DO Active CLONAZEPAM 0.5 MG TABS 1 tab po daily CLONAZEPAM 56596149274 No Longer Active Harinder Hernandez DO Active PREDNISONE 10 MG TAB 1 tablet daily for COPD PREDNISONE 77825707619 Active Harinder Hernandez DO Active PROAIR HFA 108 (90 BASE) MCG/ACT AERS 2 puffs four times a day as needed 2012 ALBUTEROL SULFATE 66324619850 Active Harinder Hernandez DO Active FLOVENT HFA 110 MCG/ACT AERO 2 puffs inhaled b.i.d. FLUTICASONE PROPIONATE HFA 61412903549 Active Kortney Mccain Active ACIPHEX 20 MG TBEC 1 tab po daily RABEPRAZOLE SODIUM 08282521119 Active Kaylah Newberry Active CLONAZEPAM 0.5 MG TABS 1 tab po daily CLONAZEPAM 0.5 MG TABS 133317 CLONAZEPAM Inactive PREDNISONE 20 MG TAB 3 tabs today, then 1 tab twice daily for 3 day, then one daily for three days PREDNISONE 20 MG TAB 996681 PREDNISONE Inactive PREDNISONE 20 MG TAB 2 tabs daily for 4 days, 1 tab daily for 4 days, 1/2 tab daily for 4 days PREDNISONE 20 MG TAB 690619 PREDNISONE Inactive PREDNISONE 10 MG TABS 1 tab po daily PREDNISONE 10 MG TABS 134832 PREDNISONE Inactive TYLENOL EXTRA STRENGTH 500 MG TABS as needed TYLENOL EXTRA STRENGTH 500 MG TABS ACETAMINOPHEN Inactive MUPIROCIN 2 % OINT apply to affected area BID x 14 days MUPIROCIN 2 % OINT 908965 MUPIROCIN Inactive MONTELUKAST SODIUM 10 MG TABS 1 tab po in the evening MONTELUKAST SODIUM 10 MG TABS 20010818 MONTELUKAST SODIUM Inactive BENZONATATE 100 MG CAPS 1 cap po TID PRN BENZONATATE 100 MG CAPS 642589 BENZONATATE Inactive NEURONTIN 300 MG CAP 1 cap by mouth three times daily for restless leg 06/22 NEURONTIN 300 MG CAP 240042 GABAPENTIN Inactive LEVAQUIN 500 MG TAB 1 tablet by mouth daily LEVAQUIN 500 MG TAB 682662 LEVOFLOXACIN Inactive PREDNISONE 20 MG TAB 1 TID x 2 days, then 1 BID x 3 days, then 1 Daily x 3 days, then stop PREDNISONE 20 MG TAB 826643 PREDNISONE Inactive POTASSIUM CHLORIDE ER 10 MEQ CR-TABS take 1 tab po daily POTASSIUM CHLORIDE ER 10 MEQ CR-TABS POTASSIUM CHLORIDE Inactive PREDNISONE 20 MG TAB 1 tab twice daily for 3 day, then one daily for three days PREDNISONE 20 MG TAB 991016 PREDNISONE Inactive TESSALON PERLES 100 MG CAP 1 to 2 tablets by mouth 3 times daily as needed for cough TESSALON PERLES 100 MG CAP 553071 BENZONATATE Inactive POTASSIUM CHLORIDE CR 10 MEQ CPCR 1 capsule by mouth daily 02/14 POTASSIUM CHLORIDE CR 10 MEQ CPCR POTASSIUM CHLORIDE Inactive NITROSTAT 0.4 MG SUBL 1 tab under tongueas needed for chest pain ( may take 3 total, 5 min apart, then call 911) NITROSTAT 0.4 MG SUBL 401144 NITROGLYCERIN Inactive LOVASTATIN 40 MG TABS 1 pill by mouth nightly for cholesterol LOVASTATIN 40 MG TABS 461313 LOVASTATIN Inactive CEFDINIR 300 MG ORAL CAPS take 1 cap po bid x 10 days CEFDINIR 300 MG ORAL CAPS 566743 CEFDINIR Inactive ACEBUTOLOL HCL 200 MG CAPS 1 cap in the morning and 2 caps in the evening ACEBUTOLOL HCL 200 MG CAPS 839445 ACEBUTOLOL HCL Inactive VENTOLIN HFA 108 (90 BASE) MCG/ACT AERS 2 -4 puffs four times a day PRN 2013 VENTOLIN HFA 108 (90 BASE) MCG/ACT AERS ALBUTEROL SULFATE Inactive LEVAQUIN 500 MG ORAL TABS Take 1 tab po daily x 8 days LEVAQUIN 500 MG ORAL TABS 109673 LEVOFLOXACIN Inactive PREDNISONE 20 MG TAB 2 tabs daily for 4 days, 1 tab daily for 4 days, 1/2 tab daily for 4 days PREDNISONE 20 MG TAB 949163 PREDNISONE Inactive LOVASTATIN 40 MG ORAL TABS Take 1 tab po every hs LOVASTATIN 40 MG ORAL TABS 411384 LOVASTATIN Inactive DILAUDID 2 MG ORAL TABS Take 1/2 tab po every 4 hours as needed for pain 2014 DILAUDID 2 MG ORAL TABS 211046 HYDROMORPHONE HCL Inactive AMITRIPTYLINE HCL 25 MG ORAL TABS 1 q hs prn AMITRIPTYLINE HCL 25 MG ORAL TABS 763669 AMITRIPTYLINE HCL Inactive MECLIZINE HCL 25 MG TAB 1 tablet three times daily for 3 days, then 1/2 tab three times daily for 3 days. MECLIZINE HCL 25 MG TAB 450730 MECLIZINE HCL Inactive AMLODIPINE BESYLATE 5 MG ORAL TABS Take 1 tab po daily AMLODIPINE BESYLATE 5 MG ORAL TABS 585005 AMLODIPINE BESYLATE Inactive TOPIRAMATE 25 MG TABS 1 tab po BID TOPIRAMATE 25 MG TABS 116409 TOPIRAMATE Inactive PREDNISONE 20 MG TAB 1 tablet twice daily for 2 days, then 1 tablet once daily for 2 days PREDNISONE 20 MG TAB 104329 PREDNISONE Inactive PREDNISONE 20 MG TAB 1 tab twice daily for 3 day, then one daily for three days PREDNISONE 20 MG TAB 686748 PREDNISONE Inactive NIFEDIPINE ER 30 MG ORAL [id number] 1 daily NIFEDIPINE ER 30 MG ORAL [id number] NIFEDIPINE Inactive AMLODIPINE BESYLATE 5 MG TABS 1 tablet by mouth daily AMLODIPINE BESYLATE 5 MG TABS 778942 AMLODIPINE BESYLATE Inactive LASIX 20 MG TAB 1 tablet by mouth every morning LASIX 20 MG TAB 784241 FUROSEMIDE Inactive POTASSIUM CHLORIDE CR 10 MEQ CPCR 1 capsule BID POTASSIUM CHLORIDE CR 10 MEQ CPCR POTASSIUM CHLORIDE Inactive AZITHROMYCIN 250 MG TABS 2 po qd x 1 day, then 1 po qd x 4 days AZITHROMYCIN 250 MG TABS 1877952 AZITHROMYCIN Inactive AZITHROMYCIN 250 MG TABS 2 po qd x 1 day, then 1 po qd x 4 days AZITHROMYCIN 250 MG TABS 6345197 AZITHROMYCIN Inactive PREDNISONE 20 MG TAB 2 po qd x 5 days PREDNISONE 20 MG TAB 029684 PREDNISONE Inactive Vital Signs Date Name Value [...] Panel - Chemistry sodium, serum 137 mmol/L 529-316 5559/01/03 potassium, serum 3.4 mmol/L 3.5-5.2 chloride, serum 102 mmol/L 98-107 carbon dioxide, venous blood 29.2 mmol/L 21.0-32.0 blood glucose 87 mg/dL 65-110 calcium, serum 8.5 mg/dL 8.5-10.1 urea nitrogen, blood 8 mg/dL 7-18 creatinine, serum 0.82 mg/dL 0.55-1.30 sodium, serum 140 mmol/L 458-427 0258/07/13 potassium, serum 3.2 mmol/L 3.5-5.2 chloride, serum 103 mmol/L 98-107 carbon dioxide, venous blood 26.9 mmol/L 21.0-32.0 blood glucose 93 mg/dL 65-110 calcium, serum 9.2 mg/dL 8.5-10.1 urea nitrogen, blood 13 mg/dL 7-18 creatinine, serum 0.84 mg/dL 0.60-1.30 sodium, serum 140 mmol/L 270-806 6214/08/21 potassium, serum 3.8 mmol/L 3.5-5.2 chloride, serum [...] ... - Chemistry sodium, serum 141 mmol/L 212-254 4323/08/07 carbon dioxide, venous blood 34.0 mmol/L 21.0-32.0 [...] 0-19 Encounters Code Encounter Date Provider Facility CPT-71291 Level 4 Est. Patient 14:45:25 CDT Harinder Cr [facility] CPT-09327 Level 4 Est. Patient 09:15:13 CDT Harinder Cr [facility] CPT-75507 Level 3 Est. Patient 11:51:58 CDT Harinder Cr [facility] CPT-69481 Level 3 Est. Patient 11:30:05 CDT Harinder Cr [facility] CPT-69997 Level 4 Est. Patient 10:19:23 CDT Harinder Cr [facility] CPT-13957 Level 3 Est. Patient 09:58:58 CDT Harinder Cr [facility] CPT-50313 Level 3 Est. Patient 12:37:21 CDT Harinder Cr [facility] CPT-31075 Level 3 Est. Patient 18:37:17 CDT Harinder Cr [facility] CPT-88061 Level 4 Est. Patient 11:15:54 CDT Nettie Rohith [facility] CPT-33203 Level 3 Est. Patient 16:42:24 CDT Harinder Cr [facility] CPT-60804 Level 3 Est. Patient 15:03:36 CDT Harinder Cr [facility] CPT-14258 Level 3 Est. Patient 15:03:20 CDT Harinder Cr [facility] CPT-30852 Level 3 Est. Patient 12:14:34 CDT Harinder Cr [facility] CPT-09435 Level 3 Est. Patient 13:47:15 CDT Harinder Cr [facility] CPT-27223 Level 3 Est. Patient 14:08:24 CDT Harinder Hernandez [facility] CPT-59664 Level 3 Est. Patient 10:07:15 CDT Harinder Hernandez [facility] CPT-21745 Level 3 Est. Patient 10:06:59 CDT Harinder Hernandez [facility] CPT-21962 Level 3 Est. Patient 15:53:29 CDT Jae Morgan MD [facility] CPT-26441 Level 3 Est. Patient 17:19:04 CDT Harinder Hernandez [facility] CPT-13192 Level 3 Est. Patient 11:13:01 CDT Harinder Hernandez [facility] CPT-51475 Level 3 Est. Patient 09:03:58 CDT Harinder Hernandez [facility] CPT-45891 Level 3 Est. Patient 14:46:45 EXECUTIVE ASSISTANT Harinder Hernandez [facility] CPT-44916 Level 3 Est. Patient 09:35:49 EXECUTIVE ASSISTANT Harinder Hernandez [facility] CPT-25511 Level 3 Est. Patient 09:29:37 EXECUTIVE ASSISTANT Harinder Hernandez [facility] CPT-92845 Level 3 Est. Patient 15:51:07 CDT Harinder Hernandez [facility] CPT-85376 Level 3 Est. Patient 18:13:13 CDT Harinder Hernandez [facility] CPT-71898 Level 3 Est. Patient 10:44:19 CDT Harinder Cr [facility] CPT-71907 Level 4 Est. Patient 10:07:19 EXECUTIVE ASSISTANT Harinder Hernandez [facility] CPT-75733 Level 3 Est. Patient 15:59:32 EXECUTIVE ASSISTANT Harinder Cr [facility] Procedures Code Procedure Name Date Entry Date Standard Description CPT-32295 Abd compl w upright - XRAY USE ONLY 14:48:09 CDT 02/18 CPT-11782 Port a cath flush 13:46:05 CDT CPT-95140 Hip, complete, 2-3 views - XRAY USE ONLY 10:28:40 CDT CPT-56293 BMP - LAB USE ONLY 16:45:09 EXECUTIVE ASSISTANT CPT-83472 Port a cath flush 12:00:13 EXECUTIVE ASSISTANT CPT-TCMM Transitional Care Mgmt-Moderate 11:20:16 EXECUTIVE ASSISTANT CPT-68736 First Vx - Ix admin for Medicare patients 17:35:15 CDT CPT-91668 Fluzone Preservative Free Intramuscular Suspension 17:35 :15 CDT CPT-48826 Microalbumin - LAB USE ONLY 11:52:05 CDT CPT-TCMM Transitional Care Mgmt-Moderate 11:33:57 CDT CPT-53965 No Charge Offi Visit 14:11:29 CDT CPT-18861 Magnesium - LAB USE ONLY 10:45:44 CDT CPT-46677 Lipid - LAB USE ONLY 10:45:44 CDT CPT-28191 CBC - LAB USE ONLY 10:45:44 CDT CPT-58042 Venipuncture Draw Fee 10:45:43 CDT CPT-26369 Venipuncture Draw Fee 18:21:27 CDT CPT-JTINJ Asp/Joint Injection 18:38:04 CDT CPT-27301 Immunization Each Additional Inj 17:38:04 CDT CPT-91722 Immunization Single Admin 17:38:04 CDT CPT-40504 Prevnar 13 17:38:04 CDT CPT-67918 Fluzone Quadrivalent preservative free (>=3yrs.) 17:38: 04 CDT CPT-26565 No Charge Offi Visit 11:14:03 CDT CPT-72801 Chest 2V Frontal and Lat 14:00:18 CDT CPT-OV Office Visit 16:10:28 CDT CPT-JTINJ Asp/Joint Injection 09:03:57 CDT CPT-Cryo Cryotherapy 09:35:49 EXECUTIVE ASSISTANT CPT-JTINJ Asp/Joint Injection 09:34:45 EXECUTIVE ASSISTANT CPT-J2930 Solu Medrol 125 mg (Methyl Prednisolone Sodium Succinate) 20:37:27 CDT CPT-10365 Abx/Therapy Injection 20:37:27 CDT CPT-33411 Port a cath flush 08:15:51 CDT CPT-47661 Port a cath flush 09:54:16 CDT CPT-07021 Port a cath flush 09:38:02 CDT CPT-10125 Port a cath flush 11:00:27 EXECUTIVE ASSISTANT
--- OUTSIDE RECORDS SUMMARY | 2017-12-29 03:09 | XMS REPORT | Clinical Summary ---
Author Author Admin, QIE Organization [facility] [employer] Address Unknown Phone Unavailable Allergies, Adverse Reactions, Alerts Allergy Name Reaction Description Start Date Severity Status Provider VANCOMYCIN Critical Active Harinder Hernandez DO LEVAQUIN stomach upset, diarrhea, and itching Critical Active Harinder Hernandez DO AITHROMYCIN itch Moderate Active Harinder Hernandez DO NEOSPORIN Critical Active Harinder eHrnandez DO TRAMADOL HCL Critical Active Harinder Hernandez [...] Shaye David PINO Sacroiliitis, right ICD-720.2 Inactive Harinder Shaye David PINO Biceps tendinitis, left ICD-726.12 Inactive Harinder Shaye [...] CR-TABS 1 po q day POTASSIUM CHLORIDE 74140861297 Active Kortney Mccain Active POTASSIUM CHLORIDE 20 MEQ ORAL PACK 1 tab po q day POTASSIUM CHLORIDE 92549170532 No Longer Active Kortney Mccain Active POTASSIUM CHLORIDE CR 10 MEQ CPCR 1 capsule BID POTASSIUM CHLORIDE 63484129631 No Longer Active Kortney Mccain Active LASIX 20 MG TAB 1 tablet by mouth every morning FUROSEMIDE 68481507440 No Longer Active Kortney Mccain Active SPIRONOLACTONE 25 MG TAB 1 tablet by mouth daily SPIRONOLACTONE 05349544402 Active Kortney Mcacin Active FLUOXETINE HCL 10 MG ORAL CAPS 1 po qd for depression/anxiety FLUOXETINE HCL 55710846454 Active Harinder Hernandez DO Active VOLTAREN 1 % GEL apply q 6-8 hour to left arm as needed for pain DICLOFENAC SODIUM 19579456649 Active Kortney Mccain Active ALBUTEROL SULFATE 0.083 % NEBU SOLN 1 vial neb q 4hrs for severe asthma. 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 FLUTICASONE PROPIONATE HFA 59044997510 Active Harinder Hernandez DO Active EPIPEN 2-BRUNA 0.3 MG/0.3ML INJ SOAJ 1 INJ NEEDED EPINEPHRINE 39975337724 Active Harinder Hernandez DO Active PREDNISONE 20 MG TAB 1 tab twice daily for 3 day, then one daily for three days PREDNISONE 92199266703 No Longer Active Harinder Hernandez DO Active PREDNISONE 20 MG TAB 1 tablet twice daily for 2 days, then 1 tablet once daily for 2 days PREDNISONE 92363733157 No Longer Active Harinder Hernandez DO Active ASMANEX 120 METERED DOSES 220 MCG/INH INH AEPB 2 puffs orally twice daily MOMETASONE FUROATE 63342051391 Active Jeri Sosa LPN Active TOPIRAMATE 25 MG TABS 1 tab po BID TOPIRAMATE 96899779075 No Longer Active Nettie Newberry APRN Active AMLODIPINE BESYLATE 5 MG ORAL TABS Take 1 tab po daily AMLODIPINE BESYLATE 55973786956 No Longer Active Nettie Newberry APRN Active MECLIZINE HCL 25 MG TAB 1 tablet three times daily for 3 days, then 1/2 tab three times daily for 3 days. MECLIZINE HCL 18038851933 No Longer Active Nettieog Newberry APRN Active AMITRIPTYLINE HCL 25 MG ORAL TABS 1 q hs prn AMITRIPTYLINE HCL 31336116299 No Longer Active Nettie Newberry MAHENDRA Active DILAUDID 2 MG ORAL TABS Take 1/2 tab po every 4 hours as needed for pain 2014 HYDROMORPHONE HCL 04430003013 No Longer Active Nettieog Newberry APRN Active CLOPIDOGREL BISULFATE 75 MG ORAL TABS 1 tab by mouth once daily CLOPIDOGREL BISULFATE 36807813530 Active Harinder Hernandez DO Active ATORVASTATIN CALCIUM 10 MG ORAL TABS 1 at bedtime ATORVASTATIN CALCIUM 26563093644 Active Kortney Mccain Active LOVASTATIN 40 MG ORAL TABS Take 1 tab po every hs LOVASTATIN 08821882495 No Longer Active Harinder Hernandez DO Active PREDNISONE 20 MG TAB 2 tabs daily for 4 days, 1 tab daily for 4 days, 1/2 tab daily for 4 days PREDNISONE 12638178545 No Longer Active Harinder Hernandez DO Active LEVAQUIN 500 MG ORAL TABS Take 1 tab po daily x 8 days LEVOFLOXACIN 89818021497 No Longer Active Harinder Hernandez DO Active VENTOLIN HFA 108 (90 BASE) MCG/ACT AERS 2 -4 puffs four times a day PRN 2013 ALBUTEROL SULFATE 59984676551 No Longer Active Jeri Sosa LPN Active ACEBUTOLOL HCL 200 MG CAPS 1 cap in the morning and 2 caps in the evening ACEBUTOLOL HCL 33888226993 No Longer Active Harinder Hernanedz DO Active CEFDINIR 300 MG ORAL CAPS take 1 cap po bid x 10 days CEFDINIR 38618293808 No Longer Active Harinder Hernandez DO Active LOVASTATIN 40 MG TABS 1 pill by mouth nightly for cholesterol LOVASTATIN 15619727764 No Longer Active Nettie King MAHENDRA Active NITROSTAT 0.4 MG SUBL 1 tab under tongueas needed for chest pain ( may take 3 total, 5 min apart, then call 911) NITROGLYCERIN 74927743104 No Longer Active Nettie Newberry APRN Active POTASSIUM CHLORIDE CR 10 MEQ CPCR 1 capsule by mouth daily 02/14 POTASSIUM CHLORIDE 60009774581 No Longer Active Nettieog Newberry APRN Active TESSALON PERLES 100 MG CAP 1 to 2 tablets by mouth 3 times daily as needed for cough BENZONATATE 95767908457 No Longer Active Nettie Newberry APRN Active THEOPHYLLINE ER 200 MG ORAL [id number] Take 1 tab every 12 hours THEOPHYLLINE 87204577056 Active Kortney Mccain Active PREDNISONE 20 MG TAB 2 po qd x 5 days PREDNISONE 13886754720 No Longer Active Jae Morgan MD Active AZITHROMYCIN 250 MG TABS 2 po qd x 1 day, then 1 po qd x 4 days AZITHROMYCIN 54554271282 No Longer Active Jae Morgan MD Active PREDNISONE 20 MG TAB 1 tab twice daily for 3 day, then one daily for three days PREDNISONE 20217420110 No Longer Active Jae Morgan MD Active SINGULAIR 10 MG TABS 1 pill by mouth every evening for breathing. MONTELUKAST SODIUM 92847926883 Active Kortney Mccain Active TYLENOL 325 MG TAB 3 by mouth q4h as needed ACETAMINOPHEN 76343194765 Active Harinder Hernandez DO Active POTASSIUM CHLORIDE ER 10 MEQ CR-TABS take 1 tab po daily POTASSIUM CHLORIDE 21625674012 No Longer Active Harinder Hernandez DO Active PREDNISONE 20 MG TAB 1 TID x 2 days, then 1 BID x 3 days, then 1 Daily x 3 days, then stop PREDNISONE 68258481149 No Longer Active John Montemayor APRN Active LEVAQUIN 500 MG TAB 1 tablet by mouth daily LEVOFLOXACIN 82154352286 No Longer Active Jillina Frashai BRICEÑON Active NEURONTIN 300 MG CAP 1 cap by mouth three times daily for restless leg 06/22 GABAPENTIN 81120644222 No Longer Active Harinder Hernandez DO Active BENZONATATE 100 MG CAPS 1 cap po TID PRN BENZONATATE 37294434704 No Longer Active Harinder Hernandez DO Active MONTELUKAST SODIUM 10 MG TABS 1 tab po in the evening MONTELUKAST SODIUM 60945470713 No Longer Active Harinder Hernandez DO Active MUPIROCIN 2 % OINT apply to affected area BID x 14 days MUPIROCIN 54279654731 No Longer Active Harinder Hernandez DO Active TYLENOL EXTRA STRENGTH 500 MG TABS as needed ACETAMINOPHEN 06416618173 No Longer Active Harinder Hernandez DO Active PREDNISONE 10 MG TABS 1 tab po daily PREDNISONE 85528371753 No Longer Active Harinder Hernandez DO Active PREDNISONE 20 MG TAB 2 tabs daily for 4 days, 1 tab daily for 4 days, 1/2 tab daily for 4 days PREDNISONE 68264551768 No Longer Active Harinder Hernandez DO Active AZITHROMYCIN 250 MG TABS 2 po qd x 1 day, then 1 po qd x 4 days AZITHROMYCIN 64396683287 No Longer Active Harinder Hernandez DO Active PREDNISONE 20 MG TAB 3 tabs today, then 1 tab twice daily for 3 day, then one daily for three days PREDNISONE 40065531213 No Longer Active Harinder Hernandez DO Active NIFEDIAC CC 30 MG [id number] 1 tablet daily for raynaud's syndrome NIFEDIPINE 55695765695 No Longer Active Tawnya Pardo MA Active AMBIEN 10 MG TAB 1/2 tab by mouth at bedtime as needed for sleep ZOLPIDEM TARTRATE 78647697916 Active Kortney Mccain Active CLONAZEPAM 1 MG TABS 1 tablet at bedtime for insomnia and restless legs 09/14 CLONAZEPAM 70284683275 Active Harinder Hernandez DO Active CLONAZEPAM 0.5 MG TABS 1 tab po daily CLONAZEPAM 09629758786 No Longer Active Harinder Shaye David DO Active PREDNISONE 10 MG TAB 1 tablet daily for COPD PREDNISONE 22076477521 Active Harinder Hernandez DO Active PROAIR HFA 108 (90 BASE) MCG/ACT AERS 2 puffs four times a day as needed 2012 ALBUTEROL SULFATE 15986041294 Active Harinder Cr David DO Active FLOVENT HFA 110 MCG/ACT AERO 2 puffs inhaled b.i.d. FLUTICASONE PROPIONATE HFA 58438222407 Active Kortney Mccain Active ACIPHEX 20 MG TBEC 1 tab po daily RABEPRAZOLE SODIUM 56597049073 Active Kaylah Newberry Active CLONAZEPAM 0.5 MG TABS 1 tab po daily CLONAZEPAM 0.5 MG TABS 298400 CLONAZEPAM Inactive PREDNISONE 20 MG TAB 3 tabs today, then 1 tab twice daily for 3 day, then one daily for three days PREDNISONE 20 MG TAB 699773 PREDNISONE Inactive PREDNISONE 20 MG TAB 2 tabs daily for 4 days, 1 tab daily for 4 days, 1/2 tab daily for 4 days PREDNISONE 20 MG TAB 145586 PREDNISONE Inactive PREDNISONE 10 MG TABS 1 tab po daily PREDNISONE 10 MG TABS 876780 PREDNISONE Inactive TYLENOL EXTRA STRENGTH 500 MG TABS as needed TYLENOL EXTRA STRENGTH 500 MG TABS 683528 ACETAMINOPHEN Inactive MUPIROCIN 2 % OINT apply to affected area BID x 14 days MUPIROCIN 2 % OINT 074756 MUPIROCIN Inactive MONTELUKAST SODIUM 10 MG TABS 1 tab po in the evening MONTELUKAST SODIUM 10 MG TABS 20010818 MONTELUKAST SODIUM Inactive BENZONATATE 100 MG CAPS 1 cap po TID PRN BENZONATATE 100 MG CAPS 684877 BENZONATATE Inactive NEURONTIN 300 MG CAP 1 cap by mouth three times daily for restless leg 06/22 NEURONTIN 300 MG CAP 475915 GABAPENTIN Inactive LEVAQUIN 500 MG TAB 1 tablet by mouth daily LEVAQUIN 500 MG TAB 488744 LEVOFLOXACIN Inactive PREDNISONE 20 MG TAB 1 TID x 2 days, then 1 BID x 3 days, then 1 Daily x 3 days, then stop PREDNISONE 20 MG TAB 091104 PREDNISONE Inactive POTASSIUM CHLORIDE ER 10 MEQ CR-TABS take 1 tab po daily POTASSIUM CHLORIDE ER 10 MEQ CR-TABS POTASSIUM CHLORIDE Inactive PREDNISONE 20 MG TAB 1 tab twice daily for 3 day, then one daily for three days PREDNISONE 20 MG TAB 959612 PREDNISONE Inactive TESSALON PERLES 100 MG CAP 1 to 2 tablets by mouth 3 times daily as needed for cough TESSALON PERLES 100 MG CAP 752409 BENZONATATE Inactive POTASSIUM CHLORIDE CR 10 MEQ CPCR 1 capsule by mouth daily 02/14 POTASSIUM CHLORIDE CR 10 MEQ CPCR POTASSIUM CHLORIDE Inactive NITROSTAT 0.4 MG SUBL 1 tab under tongueas needed for chest pain ( may take 3 total, 5 min apart, then call 911) NITROSTAT 0.4 MG SUBL 396183 NITROGLYCERIN Inactive LOVASTATIN 40 MG TABS 1 pill by mouth nightly for cholesterol LOVASTATIN 40 MG TABS 230544 LOVASTATIN Inactive CEFDINIR 300 MG ORAL CAPS take 1 cap po bid x 10 days CEFDINIR 300 MG ORAL CAPS 895186 CEFDINIR Inactive ACEBUTOLOL HCL 200 MG CAPS 1 cap in the morning and 2 caps in the evening ACEBUTOLOL HCL 200 MG CAPS 207671 ACEBUTOLOL HCL Inactive VENTOLIN HFA 108 (90 BASE) MCG/ACT AERS 2 -4 puffs four times a day PRN 2013 VENTOLIN HFA 108 (90 BASE) MCG/ACT AERS ALBUTEROL SULFATE Inactive LEVAQUIN 500 MG ORAL TABS Take 1 tab po daily x 8 days LEVAQUIN 500 MG ORAL TABS 246068 LEVOFLOXACIN Inactive PREDNISONE 20 MG TAB 2 tabs daily for 4 days, 1 tab daily for 4 days, 1/2 tab daily for 4 days PREDNISONE 20 MG TAB 600356 PREDNISONE Inactive LOVASTATIN 40 MG ORAL TABS Take 1 tab po every hs LOVASTATIN 40 MG ORAL TABS 562641 LOVASTATIN Inactive DILAUDID 2 MG ORAL TABS Take 1/2 tab po every 4 hours as needed for pain 2014 DILAUDID 2 MG ORAL TABS 229608 HYDROMORPHONE HCL Inactive AMITRIPTYLINE HCL 25 MG ORAL TABS 1 q hs prn AMITRIPTYLINE HCL 25 MG ORAL TABS 881590 AMITRIPTYLINE HCL Inactive MECLIZINE HCL 25 MG TAB 1 tablet three times daily for 3 days, then 1/2 tab three times daily for 3 days. MECLIZINE HCL 25 MG TAB 824834 MECLIZINE HCL Inactive AMLODIPINE BESYLATE 5 MG ORAL TABS Take 1 tab po daily AMLODIPINE BESYLATE 5 MG ORAL TABS 519380 AMLODIPINE BESYLATE Inactive TOPIRAMATE 25 MG TABS 1 tab po BID TOPIRAMATE 25 MG TABS 205246 TOPIRAMATE Inactive PREDNISONE 20 MG TAB 1 tablet twice daily for 2 days, then 1 tablet once daily for 2 days PREDNISONE 20 MG TAB 606755 PREDNISONE Inactive PREDNISONE 20 MG TAB 1 tab twice daily for 3 day, then one daily for three days PREDNISONE 20 MG TAB 033425 PREDNISONE Inactive NIFEDIPINE ER 30 MG ORAL [id number] 1 daily NIFEDIPINE ER 30 MG ORAL [id number] NIFEDIPINE Inactive AMLODIPINE BESYLATE 5 MG TABS 1 tablet by mouth daily AMLODIPINE BESYLATE 5 MG TABS 774587 AMLODIPINE BESYLATE Inactive LASIX 20 MG TAB 1 tablet by mouth every morning LASIX 20 MG TAB 316192 FUROSEMIDE Inactive POTASSIUM CHLORIDE CR 10 MEQ CPCR 1 capsule BID POTASSIUM CHLORIDE CR 10 MEQ CPCR POTASSIUM CHLORIDE Inactive POTASSIUM CHLORIDE 20 MEQ ORAL PACK 1 tab po q day POTASSIUM CHLORIDE 20 MEQ ORAL PACK 5568709 POTASSIUM CHLORIDE Inactive AZITHROMYCIN 250 MG TABS 2 po qd x 1 day, then 1 po qd x 4 days AZITHROMYCIN 250 MG TABS 464091 AZITHROMYCIN Inactive AZITHROMYCIN 250 MG TABS 2 po qd x 1 day, then 1 po qd x 4 days AZITHROMYCIN 250 MG TABS 359437 AZITHROMYCIN Inactive PREDNISONE 20 MG TAB 2 po qd x 5 days PREDNISONE 20 MG TAB 023988 PREDNISONE Inactive Vital Signs Date Name Value [...] Panel - Chemistry sodium, serum 137 mmol/L 812-236 6385/01/03 potassium, serum 3.4 mmol/L 3.5-5.2 chloride, serum 102 mmol/L 98-107 carbon dioxide, venous blood 29.2 mmol/L 21.0-32.0 blood glucose 87 mg/dL 65-110 calcium, serum 8.5 mg/dL 8.5-10.1 urea nitrogen, blood 8 mg/dL 7-18 creatinine, serum 0.82 mg/dL 0.55-1.30 sodium, serum 140 mmol/L 406-337 2629/07/13 potassium, serum 3.2 mmol/L 3.5-5.2 chloride, serum 103 mmol/L 98-107 carbon dioxide, venous blood 26.9 mmol/L 21.0-32.0 blood glucose 93 mg/dL 65-110 calcium, serum 9.2 mg/dL 8.5-10.1 urea nitrogen, blood 13 mg/dL 7-18 creatinine, serum 0.84 mg/dL 0.60-1.30 sodium, serum 140 mmol/L 792-878 8994/08/21 potassium, serum 3.8 mmol/L 3.5-5.2 chloride, serum [...] ... - Chemistry sodium, serum 141 mmol/L 419-417 1593/08/07 carbon dioxide, venous blood 34.0 mmol/L 21.0-32.0 [...] 1.40 mg/dL 0.00-1.00 cholesterol, serum 192 mg/dL 843-688 2549/10/19 triglyceride, serum, fasting 71 mg/dL 30-200 HDL cholesterol, serum 72 mg/dL 32-60 LDL cholesterol, serum 106 mg/dL 0-130 Lab Report: MICROALB/CREAT W/RATIO - Chemistry albumin/creatinine ratio, urine < 30 mg/g mg/g{creat} 0-29 Lab Report: MICROALB/CREAT W/RATIO - Lab microalbumin, urine 10 0-19 Encounters Code Encounter Date Provider Facility CPT-76451 Level 4 Est. Patient 14:45:25 CDT Harinder Cr [facility] CPT-43142 Level 4 Est. Patient 09:15:13 CDT Harinder Hernandez [facility] CPT-45070 Level 3 Est. Patient 11:51:58 CDT Harinder Cr [facility] CPT-71669 Level 3 Est. Patient 11:30:05 CDT Harinder Hernandez [facility] CPT-77198 Level 4 Est. Patient 10:19:23 CDT Harinder Hernandez [facility] CPT-92660 Level 3 Est. Patient 09:58:58 CDT Harinder Hernandez [facility] CPT-21675 Level 3 Est. Patient 12:37:21 CDT Harinder Hernandez [facility] CPT-92217 Level 3 Est. Patient 18:37:17 CDT Harinder Hernandez [facility] CPT-22359 Level 4 Est. Patient 11:15:54 CDT Nettie Newberry APRN [facility] CPT-79970 Level 3 Est. Patient 16:42:24 CDT Harinder Cr [facility] CPT-40175 Level 3 Est. Patient 15:03:36 CDT Harinder Hernandez [facility] CPT-46456 Level 3 Est. Patient 15:03:20 CDT Harinder Cr [facility] CPT-52129 Level 3 Est. Patient 12:14:34 CDT Harinder Hernandez [facility] CPT-50065 Level 3 Est. Patient 13:47:15 CDT Harinder Hernandez [facility] CPT-09569 Level 3 Est. Patient 14:08:24 CDT Harinder Hernandez [facility] CPT-92307 Level 3 Est. Patient 10:07:15 CDT Harinder Hernandez [facility] CPT-84637 Level 3 Est. Patient 10:06:59 CDT Harinder Cr [facility] CPT-61290 Level 3 Est. Patient 15:53:29 CDT Jae Morgan MD [facility] CPT-73735 Level 3 Est. Patient 17:19:04 CDT Harinder Cr [facility] CPT-86964 Level 3 Est. Patient 11:13:01 CDT Harinder Hernandez [facility] CPT-89696 Level 3 Est. Patient 09:03:58 CDT Harinder Hernandez [facility] CPT-54063 Level 3 Est. Patient 14:46:45 RETORT ENGINEER Harinder Hernandez [facility] CPT-28287 Level 3 Est. Patient 09:35:49 RETORT ENGINEER Harinder Hernandez [facility] CPT-95931 Level 3 Est. Patient 09:29:37 RETORT ENGINEER Harinder Hernandez [facility] CPT-85405 Level 3 Est. Patient 15:51:07 CDT Harinder Hernandez [facility] CPT-85654 Level 3 Est. Patient 18:13:13 CDT aHrinder Hernandez [facility] CPT-78623 Level 3 Est. Patient 10:44:19 CDT Harinder Hernandez [facility] CPT-57441 Level 4 Est. Patient 10:07:19 RETORT ENGINEER Harinder Hernandez [facility] CPT-54374 Level 3 Est. Patient 15:59:32 RETORT ENGINEER Harinder Cr [facility] Procedures Code Procedure Name Date Entry Date Standard Description CPT-42982 Abd compl w upright - XRAY USE ONLY 14:48:09 CDT 02/18 CPT-02745 Port a cath flush 13:46:05 CDT CPT-73413 Hip, complete, 2-3 views - XRAY USE ONLY 10:28:40 CDT CPT-34706 BMP - LAB USE ONLY 16:45:09 RETORT ENGINEER CPT-86536 Port a cath flush 12:00:13 RETORT ENGINEER CPT-TCMM Transitional Care Mgmt-Moderate 11:20:16 RETORT ENGINEER CPT-93761 First Vx - Ix admin for Medicare patients 17:35:15 CDT CPT-65176 Fluzone Preservative Free Intramuscular Suspension 17:35 :15 CDT CPT-97841 Microalbumin - LAB USE ONLY 11:52:05 CDT CPT-TCMM Transitional Care Mgmt-Moderate 11:33:57 CDT CPT-01589 No Charge Offi Visit 14:11:29 CDT CPT-81758 Magnesium - LAB USE ONLY 10:45:44 CDT CPT-34215 Lipid - LAB USE ONLY 10:45:44 CDT CPT-63326 CBC - LAB USE ONLY 10:45:44 CDT CPT-83303 Venipuncture Draw Fee 10:45:43 CDT CPT-77150 Venipuncture Draw Fee 18:21:27 CDT CPT-JTINJ Asp/Joint Injection 18:38:04 CDT CPT-00694 Immunization Each Additional Inj 17:38:04 CDT CPT-49778 Immunization Single Admin 17:38:04 CDT CPT-36855 Prevnar 13 17:38:04 CDT CPT-16418 Fluzone Quadrivalent preservative free (>=3yrs.) 17:38: 04 CDT CPT-01166 No Charge Offi Visit 11:14:03 CDT CPT-04628 Chest 2V Frontal and Lat 14:00:18 CDT CPT-OV Office Visit 16:10:28 CDT CPT-JTINJ Asp/Joint Injection 09:03:57 CDT CPT-Cryo Cryotherapy 09:35:49 RETORT ENGINEER CPT-JTINJ Asp/Joint Injection 09:34:45 RETORT ENGINEER CPT-J2930 Solu Medrol 125 mg (Methyl Prednisolone Sodium Succinate) 20:37:27 CDT CPT-68521 Abx/Therapy Injection 20:37:27 CDT CPT-19016 Port a cath flush 08:15:51 CDT CPT-37831 Port a cath flush 09:54:16 CDT CPT-40887 Port a cath flush 09:38:02 CDT CPT-08895 Port a cath flush 11:00:27 RETORT ENGINEER
--- OUTSIDE RECORDS SUMMARY | 2017-12-29 03:11 | XMS REPORT | Clinical Summary ---
Author Author Admin, QIE Organization [facility] [employer] Address Unknown Phone Unavailable Allergies, Adverse Reactions, [...] and adjustment of vascular catheter ICD-V58.81 Inactive Hrainder Hernandez DO Back pain, lumbar ICD-724.2 Inactive Harinder Cr David DO Insomnia ICD-780.52 Inactive Harinder Hernandez DO Sacroiliitis, right ICD-720.2 Inactive Harinder Cr David DO Biceps tendinitis, left ICD-726.12 Inactive Harinder Hernandez DO Breast mass, right ICD-611.72 Inactive Harinder Hernandez DO Benign positional vertigo ICD-386.11 Inactive Harinder Hernandez DO Colon cancer screening ICD-V76.51 Inactive Harinder Cr David DO Screening for malignant neoplasm, colon ICD-V76.51 Inactive Harinder Hernandez DO Pneumonia ICD-486 Inactive Harinder Cr David DO Bacteremia ICD-790.7 Inactive Harinder Cr [...] left ICD-726.5 Inactive Harinder W David DO Nausea and vomiting ICD-787.01 Inactive Jae Morgan MD Diarrhea ICD-787.91 Inactive Jae Morgan MD Medication List Medication Instructions Start Date Stop Date Generic Name NDC Status Provider Patient Instruction AMLODIPINE BESYLATE 5 MG TABS 1 tablet by mouth daily AMLODIPINE BESYLATE 02993229564 Active Harinder Hernandez DO Active NIFEDIPINE ER 30 MG ORAL [id number] 1 daily NIFEDIPINE 86241858497 No Longer Active Harinder Hernandez DO Active POTASSIUM CHLORIDE 20 MEQ ORAL PACK Take 1 tablet by mouth daily POTASSIUM CHLORIDE 08950647143 Active Ciera Pimentel Active ALBUTEROL SULFATE 0.083 % NEBU SOLN 1 vial neb q 4hrs PRN Wheezing ALBUTEROL SULFATE 10054910290 Active Harinder Hernandez DO Active FLOVENT HFA 110 MCG/ACT AERO 2 puffs inhaled b.i.d. FLUTICASONE PROPIONATE HFA 46766920386 Active Harinder Hernandez DO Active POTASSIUM CHLORIDE CR 10 MEQ CPCR 1 capsule by mouth daily POTASSIUM CHLORIDE 77888496104 Active Harinder Hernandez DO Active EPIPEN 2-BRUNA 0.3 MG/0.3ML INJ SOAJ 1 INJ NEEDED EPINEPHRINE 36159327915 Active Harinder eHrnandez DO Active PREDNISONE 20 MG TAB 1 tab twice daily for 3 day, then one daily for three days PREDNISONE 62624919309 No Longer Active Harinder Hernandez DO Active PREDNISONE 20 MG TAB 1 tablet twice daily for 2 days, then 1 tablet once daily for 2 days PREDNISONE 16773263415 No Longer Active Harinder Hernandez DO Active ASMANEX 120 METERED DOSES 220 MCG/INH INH AEPB 2 puffs orally twice daily MOMETASONE FUROATE 25270836591 Active Jeri Sosa RPT,RMA Active TOPIRAMATE 25 MG TABS 1 tab po BID TOPIRAMATE 06447706442 No Longer Active Nettie Newberry APRN Active AMLODIPINE BESYLATE 5 MG ORAL TABS Take 1 tab po daily AMLODIPINE BESYLATE 20838704712 No Longer Active Nettieog Newberry APRN Active MECLIZINE HCL 25 MG TAB 1 tablet three times daily for 3 days, then 1/2 tab three times daily for 3 days. MECLIZINE HCL 66614749404 No Longer Active Nettieog Newberry APRN Active AMITRIPTYLINE HCL 25 MG ORAL TABS 1 q hs prn AMITRIPTYLINE HCL 66926072704 No Longer Active Nettie Newberry APRN Active DILAUDID 2 MG ORAL TABS Take 1/2 tab po every 4 hours as needed for pain 2014 HYDROMORPHONE HCL 93165140574 No Longer Active Nettie Newberry APRN Active CLOPIDOGREL BISULFATE 75 MG ORAL TABS 1 tab by mouth once daily CLOPIDOGREL BISULFATE 78864435364 Active Tawnya Pardo MA Active ATORVASTATIN CALCIUM 10 MG ORAL TABS 1 at bedtime ATORVASTATIN CALCIUM 97243866479 Active Tawnya Pardo MA Active LOVASTATIN 40 MG ORAL TABS Take 1 tab po every hs LOVASTATIN 53607381882 No Longer Active Harinder Hernandez DO Active PREDNISONE 20 MG TAB 2 tabs daily for 4 days, 1 tab daily for 4 days, 1/2 tab daily for 4 days PREDNISONE 87326187181 No Longer Active Harinder Hernandez DO Active LEVAQUIN 500 MG ORAL TABS Take 1 tab po daily x 8 days LEVOFLOXACIN 62026496256 No Longer Active Harinder Hernandez DO Active VENTOLIN HFA 108 (90 BASE) MCG/ACT AERS 2 -4 puffs four times a day PRN 2013 ALBUTEROL SULFATE 66446632531 No Longer Active Jeri Sosa RPT,RMA Active ACEBUTOLOL HCL 200 MG CAPS 1 cap in the morning and 2 caps in the evening ACEBUTOLOL HCL 30903995219 No Longer Active Harinder Hernandez DO Active CEFDINIR 300 MG ORAL CAPS take 1 cap po bid x 10 days CEFDINIR 02701887038 No Longer Active Harinder Hernandez DO Active LOVASTATIN 40 MG TABS 1 pill by mouth nightly for cholesterol LOVASTATIN 23096017110 No Longer Active Nettie Newberry MAHENDRA Active NITROSTAT 0.4 MG SUBL 1 tab under tongueas needed for chest pain ( may take 3 total, 5 min apart, then call 911) NITROGLYCERIN 02423031075 No Longer Active Nettie Newberry APRN Active POTASSIUM CHLORIDE CR 10 MEQ CPCR 1 capsule by mouth daily 02/14 POTASSIUM CHLORIDE 07117388096 No Longer Active Nettie Newberry MAHENDRA Active TESSALON PERLES 100 MG CAP 1 to 2 tablets by mouth 3 times daily as needed for cough BENZONATATE 44862424971 No Longer Active Nettie Newberry APRN Active THEOPHYLLINE ER 200 MG ORAL [id number] Take 1 tab every 12 hours THEOPHYLLINE 80871231719 Active Tawnya Pardo MA Active PREDNISONE 20 MG TAB 2 po qd x 5 days PREDNISONE 52604237395 No Longer Active Jae Morgan MD Active AZITHROMYCIN 250 MG TABS 2 po qd x 1 day, then 1 po qd x 4 days AZITHROMYCIN 68966501612 No Longer Active Jae Morgan MD Active PREDNISONE 20 MG TAB 1 tab twice daily for 3 day, then one daily for three days PREDNISONE 78649071494 No Longer Active Jae Morgan MD Active SINGULAIR 10 MG TABS 1 pill by mouth every evening for breathing. MONTELUKAST SODIUM 46013763679 Active Tawnya Pardo MA Active TYLENOL 325 MG TAB 3 by mouth q4h as needed ACETAMINOPHEN 64678830035 Active Harinder Hernandez DO Active POTASSIUM CHLORIDE ER 10 MEQ CR-TABS take 1 tab po daily POTASSIUM CHLORIDE 18269434758 No Longer Active Harinder Hernandez DO Active PREDNISONE 20 MG TAB 1 TID x 2 days, then 1 BID x 3 days, then 1 Daily x 3 days, then stop PREDNISONE 04448706967 No Longer Active Jillina Frazellor HEALTH UNDERWRITER Active LEVAQUIN 500 MG TAB 1 tablet by mouth daily LEVOFLOXACIN 59271433338 No Longer Active Jillina Frazell HEALTH UNDERWRITER Active NEURONTIN 300 MG CAP 1 cap by mouth three times daily for restless leg 06/22 GABAPENTIN 08035220388 No Longer Active Harinder Hernandez DO Active BENZONATATE 100 MG CAPS 1 cap po TID PRN BENZONATATE 86068856722 No Longer Active Harinder Hernandez DO Active MONTELUKAST SODIUM 10 MG TABS 1 tab po in the evening MONTELUKAST SODIUM 95743005697 No Longer Active Harinder Hernandez DO Active MUPIROCIN 2 % OINT apply to affected area BID x 14 days MUPIROCIN 16898020948 No Longer Active Harinder Hernandez DO Active TYLENOL EXTRA STRENGTH 500 MG TABS as needed ACETAMINOPHEN 32178742449 No Longer Active Harinder Hernandez DO Active PREDNISONE 10 MG TABS 1 tab po daily PREDNISONE 17490767503 No Longer Active Harinder Hernandez DO Active PREDNISONE 20 MG TAB 2 tabs daily for 4 days, 1 tab daily for 4 days, 1/2 tab daily for 4 days PREDNISONE 57418450406 No Longer Active Harinder Hernandez DO Active AZITHROMYCIN 250 MG TABS 2 po qd x 1 day, then 1 po qd x 4 days AZITHROMYCIN 05443495571 No Longer Active Harinder Hernandez DO Active PREDNISONE 20 MG TAB 3 tabs today, then 1 tab twice daily for 3 day, then one daily for three days PREDNISONE 56293524155 No Longer Active Harinder Hernandez DO Active NIFEDIAC CC 30 MG [id number] 1 tablet daily for raynaud's syndrome NIFEDIPINE 11990743007 No Longer Active Tawnya Pardo MA Active AMBIEN 10 MG TAB 1/2 tab by mouth at bedtime as needed for sleep ZOLPIDEM TARTRATE 02754936037 Active Harinder Hernandez DO Active CLONAZEPAM 1 MG TABS 1 tablet at bedtime for insomnia and restless legs 09/14 CLONAZEPAM 98340127072 Active Harinder Hernandez DO Active CLONAZEPAM 0.5 MG TABS 1 tab po daily CLONAZEPAM 83896414081 No Longer Active Harinder Hernandez DO Active PREDNISONE 10 MG TAB 1 tablet daily for COPD PREDNISONE 87202041003 Active Tawnya Pardo MA Active PROAIR HFA 108 (90 BASE) MCG/ACT AERS 2 puffs four times a day as needed 2012 ALBUTEROL SULFATE 74035549571 Active Tawnya Pardo MA Active FLOVENT HFA 110 MCG/ACT AERO 2 puffs inhaled b.i.d. FLUTICASONE PROPIONATE HFA 03983115055 Active Tawnya Pardo MA Active ACIPHEX 20 MG TBEC 1 tab po daily RABEPRAZOLE SODIUM 62425425704 Active Kaylah Newberry Active CLONAZEPAM 0.5 MG TABS 1 tab po daily CLONAZEPAM 0.5 MG TABS 162232 CLONAZEPAM Inactive PREDNISONE 20 MG TAB 3 tabs today, then 1 tab twice daily for 3 day, then one daily for three days PREDNISONE 20 MG TAB 903757 PREDNISONE Inactive PREDNISONE 20 MG TAB 2 tabs daily for 4 days, 1 tab daily for 4 days, 1/2 tab daily for 4 days PREDNISONE 20 MG TAB 585170 PREDNISONE Inactive PREDNISONE 10 MG TABS 1 tab po daily PREDNISONE 10 MG TABS 990564 PREDNISONE Inactive TYLENOL EXTRA STRENGTH 500 MG TABS as needed TYLENOL EXTRA STRENGTH 500 MG TABS 838584 ACETAMINOPHEN Inactive MUPIROCIN 2 % OINT apply to affected area BID x 14 days MUPIROCIN 2 % OINT 901691 MUPIROCIN Inactive MONTELUKAST SODIUM 10 MG TABS 1 tab po in the evening MONTELUKAST SODIUM 10 MG TABS 20010818 MONTELUKAST SODIUM Inactive BENZONATATE 100 MG CAPS 1 cap po TID PRN BENZONATATE 100 MG CAPS 19730321 BENZONATATE Inactive NEURONTIN 300 MG CAP 1 cap by mouth three times daily for restless leg 06/22 NEURONTIN 300 MG CAP 189271 GABAPENTIN Inactive LEVAQUIN 500 MG TAB 1 tablet by mouth daily LEVAQUIN 500 MG TAB 296515 LEVOFLOXACIN Inactive PREDNISONE 20 MG TAB 1 TID x 2 days, then 1 BID x 3 days, then 1 Daily x 3 days, then stop PREDNISONE 20 MG TAB 619998 PREDNISONE Inactive POTASSIUM CHLORIDE ER 10 MEQ CR-TABS take 1 tab po daily POTASSIUM CHLORIDE ER 10 MEQ CR-TABS POTASSIUM CHLORIDE Inactive PREDNISONE 20 MG TAB 1 tab twice daily for 3 day, then one daily for three days PREDNISONE 20 MG TAB 851590 PREDNISONE Inactive TESSALON PERLES 100 MG CAP [...] then call 911) NITROSTAT 0.4 MG SUBL 103482 NITROGLYCERIN Inactive LOVASTATIN 40 MG TABS 1 pill by mouth nightly for cholesterol LOVASTATIN 40 MG TABS 874206 LOVASTATIN Inactive CEFDINIR 300 MG ORAL CAPS take 1 cap po bid x 10 days CEFDINIR 300 MG ORAL CAPS 20021018 CEFDINIR Inactive ACEBUTOLOL HCL 200 MG CAPS 1 cap in the morning and 2 caps in the evening ACEBUTOLOL HCL 200 MG CAPS 742245 ACEBUTOLOL HCL Inactive VENTOLIN HFA 108 (90 BASE) MCG/ACT AERS 2 -4 puffs four times a day PRN 2013 VENTOLIN HFA 108 (90 BASE) MCG/ACT AERS ALBUTEROL SULFATE Inactive LEVAQUIN 500 MG ORAL TABS Take 1 tab po daily x 8 days LEVAQUIN 500 MG ORAL TABS 335578 LEVOFLOXACIN Inactive PREDNISONE 20 MG TAB 2 tabs daily for 4 days, 1 tab daily for 4 days, 1/2 tab daily for 4 days PREDNISONE 20 MG TAB 077612 PREDNISONE Inactive LOVASTATIN 40 MG ORAL TABS Take 1 tab po every hs LOVASTATIN 40 MG ORAL TABS 277242 LOVASTATIN Inactive DILAUDID 2 MG ORAL TABS Take 1/2 tab po every 4 hours as needed for pain 2014 DILAUDID 2 MG ORAL TABS 816283 HYDROMORPHONE HCL Inactive AMITRIPTYLINE HCL 25 MG ORAL TABS 1 q hs prn AMITRIPTYLINE HCL 25 MG ORAL TABS 720906 AMITRIPTYLINE HCL Inactive MECLIZINE HCL 25 MG TAB 1 tablet three times daily for 3 days, then 1/2 tab three times daily for 3 days. MECLIZINE HCL 25 MG TAB 970129 MECLIZINE HCL Inactive AMLODIPINE BESYLATE 5 MG ORAL TABS Take 1 tab po daily AMLODIPINE BESYLATE 5 MG ORAL TABS 026629 AMLODIPINE BESYLATE Inactive TOPIRAMATE 25 MG TABS 1 tab po BID TOPIRAMATE 25 MG TABS 475200 TOPIRAMATE Inactive PREDNISONE 20 MG TAB 1 tablet twice daily for 2 days, then 1 tablet once daily for 2 days PREDNISONE 20 MG TAB 258113 PREDNISONE Inactive PREDNISONE 20 MG TAB 1 tab twice daily for 3 day, then one daily for three days PREDNISONE 20 MG TAB 892739 PREDNISONE Inactive NIFEDIPINE ER 30 MG ORAL [id number] 1 daily NIFEDIPINE ER 30 MG ORAL [id number] NIFEDIPINE Inactive AZITHROMYCIN 250 MG TABS 2 po qd x 1 day, then 1 po qd x 4 days AZITHROMYCIN 250 MG TABS 6096977 AZITHROMYCIN Inactive AZITHROMYCIN 250 MG TABS 2 po qd x 1 day, then 1 po qd x 4 days AZITHROMYCIN 250 MG TABS 8667588 AZITHROMYCIN Inactive PREDNISONE 20 MG TAB 2 po qd x 5 days PREDNISONE 20 MG TAB 257569 PREDNISONE Inactive Vital Signs Date Name Value [...] Panel - Chemistry sodium, serum 137 mmol/L 015-471 1659/01/03 potassium, serum 3.4 mmol/L 3.5-5.2 chloride, serum 102 mmol/L 98-107 carbon dioxide, venous blood 29.2 mmol/L 21.0-32.0 blood glucose 87 mg/dL 65-110 calcium, serum 8.5 mg/dL 8.5-10.1 urea nitrogen, blood 8 mg/dL 7-18 creatinine, serum 0.82 mg/dL 0.55-1.30 Lab Report: CBC - Hematology erythrocyte (RBC) count 4.09 10^6/MM^3 10*6/mm3 4.04-5.48 leukocyte count, blood 5.6 10^3/MM^3 10*3/mm3 4.6-10.2 mean corpuscular volume, RBC 96 fL 80-97 mean corpuscular hemoglobin, RBC 32.8 pg 27.0-31.2 mean corpuscular hemoglobin concentration, RBC 34.3 G/DL % 31.8- 35.4 red blood cell distribution width 13.9 % 11.6-14.8 platelet count 182 10^3/MM^3 10*3/mm3 614-274 1172/08/08 hematocrit, blood 39.2 % 36.0-46.0 hemoglobin, blood 13.4 g/dL 12.0-16.0 Lab Report: Lipid Panel, Comp. Metabolic Panel, Magnesium - Chemistry cholesterol, serum 180 mg/dL 406-554 5403/08/08 triglyceride, serum, fasting 92 mg/dL 30-200 HDL cholesterol, serum 66 mg/dL 32-96 LDL cholesterol, serum 96 mg/dL 0-130 sodium, serum 142 mmol/L 003-913 7968/08/08 carbon dioxide, venous blood 27.4 mmol/L 21.0-32.0 [...] 10.0-20.0 Encounters Code Encounter Date Provider Facility CPT-12673 Level 3 Est. Patient 09:58:58 CDT Harinder Cr [facility] [place] CPT-86172 Level 3 Est. Patient 12:37:21 CDT Harinder Cr [facility] CPT-11672 Level 3 Est. Patient 18:37:17 CDT Harinder Cr [facility] CPT-70981 Level 4 Est. Patient 11:15:54 CDT Nettie Newberry [facility] CPT-58851 Level 3 Est. Patient 16:42:24 CDT Harinder [facility] CPT-24699 Level 3 Est. Patient 15:03:36 CDT Harinder W David [facility] CPT-14480 Level 3 Est. Patient 15:03:20 CDT Harinder Hernandez [facility] CPT-90721 Level 3 Est. Patient 12:14:34 CDT Harinder Hernandez [facility] CPT-84597 Level 3 Est. Patient 13:47:15 CDT Harinder Hernandez [facility] CPT-04863 Level 3 Est. Patient 14:08:24 CDT Harinder Hernandez [facility] CPT-72335 Level 3 Est. Patient 10:07:15 CDT Harinder Hernandez [facility] CPT-44080 Level 3 Est. Patient 10:06:59 CDT Harinder Hernandez [facility] CPT-54465 Level 3 Est. Patient 15:53:29 CDT Jae Morgan MD [facility] CPT-87134 Level 3 Est. Patient 17:19:04 CDT Harinder Hernandez [facility] CPT-51176 Level 3 Est. Patient 11:13:01 CDT Harinder Hernandez [facility] CPT-03492 Level 3 Est. Patient 09:03:58 CDT Harinder Hernandez [facility] CPT-09280 Level 3 Est. Patient 14:46:45 CLAIMS DIRECTOR Harinder Hernandez [facility] CPT-19799 Level 3 Est. Patient 09:35:49 CLAIMS DIRECTOR Harinder Hernandez [facility] CPT-42076 Level 3 Est. Patient 09:29:37 CLAIMS DIRECTOR Harinder Hernandez [facility] CPT-46894 Level 3 Est. Patient 15:51:07 CDT Harinder Hernandez [facility] CPT-19865 Level 3 Est. Patient 18:13:13 CDT Harinder Hernandez [facility] CPT-65833 Level 3 Est. Patient 10:44:19 CDT Harinder Hernandez [facility] CPT-96424 Level 4 Est. Patient 10:07:19 CLAIMS DIRECTOR Harinder Hernandez [facility] CPT-40173 Level 3 Est. Patient 15:59:32 CLAIMS DIRECTOR Harinder Hernandez [facility] Procedures Code Procedure Name Date Entry Date Standard Description CPT-09294 BMP - LAB USE ONLY 16:45:09 CLAIMS DIRECTOR CPT-29908 Port a cath flush 12:00:13 CLAIMS DIRECTOR CPT-TCMM Transitional Care Mgmt-Moderate 11:20:16 CLAIMS DIRECTOR CPT-18177 First Vx - Ix admin for Medicare patients 17:35:15 CDT CPT-85219 Fluzone Preservative Free Intramuscular Suspension 17:35 :15 CDT CPT-31777 Microalbumin - LAB USE ONLY 11:52:05 CDT CPT-TCMM Transitional Care Mgmt-Moderate 11:33:57 CDT CPT-82528 No Charge Offi Visit 14:11:29 CDT CPT-73549 Magnesium - LAB USE ONLY 10:45:44 CDT CPT-83521 Lipid - LAB USE ONLY 10:45:44 CDT CPT-55637 CBC - LAB USE ONLY 10:45:44 CDT CPT-42457 Venipuncture Draw Fee 10:45:43 CDT CPT-43583 Venipuncture Draw Fee 18:21:27 CDT CPT-JTINJ Asp/Joint Injection 18:38:04 CDT CPT-22435 Immunization Each Additional Inj 17:38:04 CDT CPT-58914 Immunization Single Admin 17:38:04 CDT CPT-68390 Prevnar 13 17:38:04 CDT CPT-46902 Fluzone Quadrivalent preservative free (>=3yrs.) 17:38: 04 CDT CPT-05276 No Charge Offi Visit 11:14:03 CDT CPT-76300 Chest 2V Frontal and Lat 14:00:18 CDT CPT-OV Office Visit 16:10:28 CDT CPT-JTINJ Asp/Joint Injection 09:03:57 CDT CPT-Cryo Cryotherapy 09:35:49 CLAIMS DIRECTOR CPT-JTINJ Asp/Joint Injection 09:34:45 CLAIMS DIRECTOR CPT-J2930 Solu Medrol 125 mg (Methyl Prednisolone Sodium Succinate) 20:37:27 CDT CPT-68147 Abx/Therapy Injection 20:37:27 CDT CPT-40420 Port a cath flush 08:15:51 CDT CPT-64902 Port a cath flush 09:54:16 CDT CPT-70033 Port a cath flush 09:38:02 CDT CPT-84377 Port a cath flush 11:00:27 CLAIMS DIRECTOR
--- OUTSIDE RECORDS SUMMARY | 2017-12-29 03:12 | XMS REPORT | Clinical Summary ---
Author Author Admin, QIE Organization [facility] Address Unknown Phone Unavailable Allergies, Adverse [...] Harinder Hernandez DO HYDROCODONE-ACETAMINOPHEN Critical Active Harinder Hernanedz DO [facility] CORTISONE LONG-LASTING Critical Active Harinder [...] then one daily for three days PREDNISONE 55455576355 Active Harinder Hernandez DO Active PREDNISONE 20 MG TAB 1 tablet twice daily for 2 days, then 1 tablet once daily for 2 days PREDNISONE 95644554872 No Longer Active Harinder Hernandez DO Active ASMANEX 120 METERED DOSES 220 MCG/INH INH AEPB 2 puffs orally twice daily MOMETASONE FUROATE 80187164783 Active Jeri Sosa RPT,RMA Active NIFEDIPINE ER 30 MG ORAL [id number] 1 daily NIFEDIPINE 41837711023 Active Tawnya Pardo MA Active TOPIRAMATE 25 MG TABS 1 tab po BID TOPIRAMATE 59103316689 No Longer Active Nettie Newberry APRN Active AMLODIPINE BESYLATE 5 MG ORAL TABS Take 1 tab po daily AMLODIPINE BESYLATE 97330001795 No Longer Active Nettie Newberry APRN Active MECLIZINE HCL 25 MG TAB 1 tablet three times daily for 3 days, then 1/2 tab three times daily for 3 days. MECLIZINE HCL 58762681977 No Longer Active Nettie Newberry APRN Active AMITRIPTYLINE HCL 25 MG ORAL TABS 1 q hs prn AMITRIPTYLINE HCL 98102811200 No Longer Active Nettie Newberry APRN Active DILAUDID 2 MG ORAL TABS Take 1/2 tab po every 4 hours as needed for pain 2014 HYDROMORPHONE HCL 84648822378 No Longer Active Nettie Newberry APRN Active CLOPIDOGREL BISULFATE 75 MG ORAL TABS 1 tab by mouth once daily CLOPIDOGREL BISULFATE 19414032430 Active Jeri Sosa RPT,RMA Active ATORVASTATIN CALCIUM 10 MG ORAL TABS 1 at bedtime ATORVASTATIN CALCIUM 58361289542 Active Jeri Sosa RPT,RMA Active LOVASTATIN 40 MG ORAL TABS Take 1 tab po every hs LOVASTATIN 72214532278 No Longer Active Harinder Hernandez DO Active PREDNISONE 20 MG TAB 2 tabs daily for 4 days, 1 tab daily for 4 days, 1/2 tab daily for 4 days PREDNISONE 88111727182 No Longer Active Harinder Hernandez DO Active LEVAQUIN 500 MG ORAL TABS Take 1 tab po daily x 8 days LEVOFLOXACIN 73148070652 No Longer Active Harinder Hernandez DO Active VENTOLIN HFA 108 (90 BASE) MCG/ACT AERS 2 -4 puffs four times a day PRN 2013 ALBUTEROL SULFATE 67840455017 No Longer Active Jeri Sosa RPT,RMA Active ACEBUTOLOL HCL 200 MG CAPS 1 cap in the morning and 2 caps in the evening ACEBUTOLOL HCL 41739787370 No Longer Active Harinder Hernandez DO Active CEFDINIR 300 MG ORAL CAPS take 1 cap po bid x 10 days CEFDINIR 85789696224 No Longer Active Harinder Hernandez DO Active LOVASTATIN 40 MG TABS 1 pill by mouth nightly for cholesterol LOVASTATIN 84696209151 No Longer Active Nettie Newberry APRN Active NITROSTAT 0.4 MG SUBL 1 tab under tongueas needed for chest pain ( may take 3 total, 5 min apart, then call 911) NITROGLYCERIN 78494232967 No Longer Active Nettie Newberry APRN Active POTASSIUM CHLORIDE CR 10 MEQ CPCR 1 capsule by mouth daily 02/14 POTASSIUM CHLORIDE 26523710207 No Longer Active Nettie Newberry APRN Active TESSALON PERLES 100 MG CAP 1 to 2 tablets by mouth 3 times daily as needed for cough BENZONATATE 26828203106 No Longer Active Nettie Newberry APRN Active THEOPHYLLINE ER 200 MG ORAL CO25F-EHU Take 1 tab every 12 hours THEOPHYLLINE 78810309958 Active Jeri Sosa RPT,RMA Active PREDNISONE 20 MG TAB 2 po qd x 5 days PREDNISONE 10812257513 No Longer Active Jae Morgan MD Active AZITHROMYCIN 250 MG TABS 2 po qd x 1 day, then 1 po qd x 4 days AZITHROMYCIN 34837712640 No Longer Active Jae Morgan MD Active PREDNISONE 20 MG TAB 1 tab twice daily for 3 day, then one daily for three days PREDNISONE 48029183940 No Longer Active Jae Morgan MD Active SINGULAIR 10 MG TABS 1 pill by mouth every evening for breathing. MONTELUKAST SODIUM 02537004802 Active Tawnya Pardo MA Active TYLENOL 325 MG TAB 3 by mouth q4h as needed ACETAMINOPHEN 21227698227 Active Harinder Hernandez DO Active POTASSIUM CHLORIDE ER 10 MEQ CR-TABS take 1 tab po daily POTASSIUM CHLORIDE 58671967753 No Longer Active Harinder Hernandez DO Active PREDNISONE 20 MG TAB 1 TID x 2 days, then 1 BID x 3 days, then 1 Daily x 3 days, then stop PREDNISONE 14570404180 No Longer Active Jillina Frazell WIRE COINER Active LEVAQUIN 500 MG TAB 1 tablet by mouth daily LEVOFLOXACIN 67808558869 No Longer Active Jillina Frazell WIRE COINER Active NEURONTIN 300 MG CAP 1 cap by mouth three times daily for restless leg 06/22 GABAPENTIN 26959263852 No Longer Active Harinder Hernandez DO Active BENZONATATE 100 MG CAPS 1 cap po TID PRN BENZONATATE 79640153503 No Longer Active Harinder Hernandez DO Active MONTELUKAST SODIUM 10 MG TABS 1 tab po in the evening MONTELUKAST SODIUM 85146621355 No Longer Active Harinder Hernandez DO Active MUPIROCIN 2 % OINT apply to affected area BID x 14 days MUPIROCIN 75605246376 No Longer Active Harinder Hernandez DO Active TYLENOL EXTRA STRENGTH 500 MG TABS as needed ACETAMINOPHEN 67977934147 No Longer Active Harinder Hernandez DO Active PREDNISONE 10 MG TABS 1 tab po daily PREDNISONE 89058720235 No Longer Active Harinder Hernandez DO Active PREDNISONE 20 MG TAB 2 tabs daily for 4 days, 1 tab daily for 4 days, 1/2 tab daily for 4 days PREDNISONE 23060882760 No Longer Active Harinder Hernandez DO Active AZITHROMYCIN 250 MG TABS 2 po qd x 1 day, then 1 po qd x 4 days AZITHROMYCIN 52211773247 No Longer Active Harinder Hernandez DO Active PREDNISONE 20 MG TAB 3 tabs today, then 1 tab twice daily for 3 day, then one daily for three days PREDNISONE 36587398236 No Longer Active Harinder Hernandez DO Active NIFEDIAC CC 30 MG [id number] 1 tablet daily for raynaud's syndrome NIFEDIPINE 97414889444 No Longer Active Tawnya Pardo MA Active AMBIEN 10 MG TAB 1/2 tab by mouth at bedtime as needed for sleep ZOLPIDEM TARTRATE 09193131623 Active Harinder Hernandez DO Active CLONAZEPAM 1 MG TABS 1 tablet at bedtime for insomnia and restless legs 09/14 CLONAZEPAM 99361284181 Active Jeri Sosa RPT,RMA Active CLONAZEPAM 0.5 MG TABS 1 tab po daily CLONAZEPAM 89618279450 No Longer Active Harinder Hernandez DO Active PREDNISONE 10 MG TAB 1 tablet daily for COPD PREDNISONE 13144329993 Active Tawnya Pardo MA Active PROAIR HFA 108 (90 BASE) MCG/ACT AERS 2 puffs four times a day as needed 2012 ALBUTEROL SULFATE 57411059489 Active Tawnya Pardo MA Active FLOVENT HFA 110 MCG/ACT AERO 2 puffs inhaled b.i.d. FLUTICASONE PROPIONATE HFA 70427673066 Active Tawnya Pardo MA Active EPIPEN 0.3 MG/0.3ML URIEL DIRECTED EPINEPHRINE Active Jeri Sosa RPT,RMA Active ACIPHEX 20 MG TBEC 1 tab po daily RABEPRAZOLE SODIUM 86346090391 Active Tawnya Pardo MA Active CLONAZEPAM 0.5 MG TABS 1 tab po daily CLONAZEPAM 0.5 MG TABS 818697 CLONAZEPAM Inactive PREDNISONE 20 MG TAB 3 tabs today, then 1 tab twice daily for 3 day, then one daily for three days PREDNISONE 20 MG TAB 968551 PREDNISONE Inactive PREDNISONE 20 MG TAB 2 tabs daily for 4 days, 1 tab daily for 4 days, 1/2 tab daily for 4 days PREDNISONE 20 MG TAB 150281 PREDNISONE Inactive PREDNISONE 10 MG TABS 1 tab po daily PREDNISONE 10 MG TABS 404958 PREDNISONE Inactive TYLENOL EXTRA STRENGTH 500 MG TABS as needed TYLENOL EXTRA STRENGTH 500 MG TABS 563676 ACETAMINOPHEN Inactive MUPIROCIN 2 % OINT apply to affected area BID x 14 days MUPIROCIN 2 % OINT 041824 MUPIROCIN Inactive MONTELUKAST SODIUM 10 MG TABS 1 tab po in the evening MONTELUKAST SODIUM 10 MG TABS 20010818 MONTELUKAST SODIUM Inactive BENZONATATE 100 MG CAPS 1 cap po TID PRN BENZONATATE 100 MG CAPS 906140 BENZONATATE Inactive NEURONTIN 300 MG CAP 1 cap by mouth three times daily for restless leg 06/22 NEURONTIN 300 MG CAP 921778 GABAPENTIN Inactive LEVAQUIN 500 MG TAB 1 tablet by mouth daily LEVAQUIN 500 MG TAB 481826 LEVOFLOXACIN Inactive PREDNISONE 20 MG TAB 1 TID x 2 days, then 1 BID x 3 days, then 1 Daily x 3 days, then stop PREDNISONE 20 MG TAB 270395 PREDNISONE Inactive POTASSIUM CHLORIDE ER 10 MEQ CR-TABS take 1 tab po daily POTASSIUM CHLORIDE ER 10 MEQ CR-TABS POTASSIUM CHLORIDE Inactive PREDNISONE 20 MG TAB 1 tab twice daily for 3 day, then one daily for three days PREDNISONE 20 MG TAB 613842 PREDNISONE Inactive TESSALON PERLES 100 MG CAP 1 to 2 tablets by mouth 3 times daily as needed for cough TESSALON PERLES 100 MG CAP 827515 BENZONATATE Inactive POTASSIUM CHLORIDE CR 10 MEQ [...] nightly for cholesterol LOVASTATIN 40 MG TABS 764923 LOVASTATIN Inactive CEFDINIR 300 MG ORAL CAPS take 1 cap po bid x 10 days CEFDINIR 300 MG ORAL CAPS 133581 CEFDINIR Inactive ACEBUTOLOL HCL 200 MG CAPS 1 cap in the morning and 2 caps in the evening ACEBUTOLOL HCL 200 MG CAPS 339400 ACEBUTOLOL HCL Inactive VENTOLIN HFA 108 (90 BASE) MCG/ACT AERS 2 -4 puffs four times a day PRN 2013 VENTOLIN HFA 108 (90 BASE) MCG/ACT AERS ALBUTEROL SULFATE Inactive LEVAQUIN 500 MG ORAL TABS Take 1 tab po daily x 8 days LEVAQUIN 500 MG ORAL TABS 515730 LEVOFLOXACIN Inactive PREDNISONE 20 MG TAB 2 tabs daily for 4 days, 1 tab daily for 4 days, 1/2 tab daily for 4 days PREDNISONE 20 MG TAB 688124 PREDNISONE Inactive LOVASTATIN 40 MG ORAL TABS Take 1 tab po every hs LOVASTATIN 40 MG ORAL TABS 309400 LOVASTATIN Inactive DILAUDID 2 MG ORAL TABS Take 1/2 tab po every 4 hours as needed for pain 2014 DILAUDID 2 MG ORAL TABS 312400 HYDROMORPHONE HCL Inactive AMITRIPTYLINE HCL 25 MG ORAL TABS 1 q hs prn AMITRIPTYLINE HCL 25 MG ORAL TABS 082960 AMITRIPTYLINE HCL Inactive MECLIZINE HCL 25 MG TAB 1 tablet three times daily for 3 days, then 1/2 tab three times daily for 3 days. MECLIZINE HCL 25 MG TAB 070509 MECLIZINE HCL Inactive AMLODIPINE BESYLATE 5 MG ORAL TABS Take 1 tab po daily AMLODIPINE BESYLATE 5 MG ORAL TABS 150084 AMLODIPINE BESYLATE Inactive TOPIRAMATE 25 MG TABS 1 tab po BID TOPIRAMATE 25 MG TABS 374936 TOPIRAMATE Inactive PREDNISONE 20 MG TAB 1 tablet twice daily for 2 days, then 1 tablet once daily for 2 days PREDNISONE 20 MG TAB 893132 PREDNISONE Inactive AZITHROMYCIN 250 MG TABS 2 po qd x 1 day, then 1 po qd x 4 days AZITHROMYCIN 250 MG TABS 2150414 AZITHROMYCIN Inactive AZITHROMYCIN 250 MG TABS 2 po qd x 1 day, then 1 po qd x 4 days AZITHROMYCIN 250 MG TABS 8660254 AZITHROMYCIN Inactive PREDNISONE 20 MG TAB 2 po qd x 5 days PREDNISONE 20 MG TAB 587720 PREDNISONE Inactive Vital Signs Date Name Value [...] Panel - Chemistry sodium, serum 138 mmol/L 480-021 1505/09/24 potassium, serum 3.5 mmol/L 3.5-5.2 chloride, serum [...] Magnesium - Chemistry cholesterol, serum 180 mg/dL 714-018 1594/08/08 triglyceride, serum, fasting 92 mg/dL 30-200 HDL cholesterol, serum 66 mg/dL 32-96 LDL cholesterol, serum 96 mg/dL 0-130 sodium, serum 142 mmol/L 841-761 4625/08/08 carbon dioxide, venous blood 27.4 mmol/L 21.0-32.0 [...] 10.0-20.0 Encounters Code Encounter Date Provider Facility CPT-55703 Level 3 Est. Patient 09:58:58 CDT Harinder Cr [facility] CPT-74209 Level 3 Est. Patient 12:37:21 CDT Harinder Cr [facility] CPT-80192 Level 3 Est. Patient 18:37:17 CDT Harinder Hernandez [facility] CPT-43174 Level 4 Est. Patient 11:15:54 CDT Nettie Newberry [facility] CPT-36224 Level 3 Est. Patient 16:42:24 CDT Harinder Cr [facility] CPT-04721 Level 3 Est. Patient 15:03:36 CDT Harinder Hernandez [facility] CPT-81694 Level 3 Est. Patient 15:03:20 CDT Harinder Cr [facility] CPT-34503 Level 3 Est. Patient 12:14:34 CDT Harinder Hernandez [facility] CPT-61722 Level 3 Est. Patient 13:47:15 CDT Harinder Hernandez [facility] CPT-85349 Level 3 Est. Patient 14:08:24 CDT Harinder Hernandez [facility] CPT-20925 Level 3 Est. Patient 10:07:15 CDT Harinder Hernandez [facility] CPT-33292 Level 3 Est. Patient 10:06:59 CDT Harinder Hernandez [facility] CPT-95940 Level 3 Est. Patient 15:53:29 CDT Jae Morgan MD [facility] CPT-44531 Level 3 Est. Patient 17:19:04 CDT Harinder Hernandez [facility] CPT-12670 Level 3 Est. Patient 11:13:01 CDT Harinder Hernandez [facility] CPT-72036 Level 3 Est. Patient 09:03:58 CDT Harinder Hernandez [facility] CPT-31837 Level 3 Est. Patient 14:46:45 INSTRUCTIONAL SYSTEMS DESIGN CONSULTANT Harinder Hernandez [facility] CPT-83797 Level 3 Est. Patient 09:35:49 INSTRUCTIONAL SYSTEMS DESIGN CONSULTANT Harinder Hernandez [facility] CPT-84689 Level 3 Est. Patient 09:29:37 INSTRUCTIONAL SYSTEMS DESIGN CONSULTANT Harinder Hernandez [facility] CPT-67948 Level 3 Est. Patient 15:51:07 CDT Harinder Hernandez [facility] CPT-04310 Level 3 Est. Patient 18:13:13 CDT Harinder Hernandez [facility] CPT-65215 Level 3 Est. Patient 10:44:19 CDT Harinder Hernandez [facility] CPT-70740 Level 4 Est. Patient 10:07:19 INSTRUCTIONAL SYSTEMS DESIGN CONSULTANT Harinder Hernandez [facility] CPT-42363 Level 3 Est. Patient 15:59:32 INSTRUCTIONAL SYSTEMS DESIGN CONSULTANT Harinder Cr [facility] Procedures Code Procedure Name Date Entry Date Standard Description CPT-13794 Magnesium - LAB USE ONLY 10:45:44 CDT CPT-76716 Lipid - LAB USE ONLY 10:45:44 CDT CPT-01104 CBC - LAB USE ONLY 10:45:44 CDT CPT-08212 Venipuncture Draw Fee 10:45:43 CDT CPT-21174 Venipuncture Draw Fee 18:21:27 CDT CPT-JTINJ Asp/Joint Injection 18:38:04 CDT CPT-92074 Immunization Each Additional Inj 17:38:04 CDT CPT-40560 Immunization Single Admin 17:38:04 CDT CPT-69110 Prevnar 13 17:38:04 CDT CPT-36221 Fluzone Quadrivalent preservative free (>=3yrs.) 17:38: 04 CDT CPT-09395 No Charge Offi Visit 11:14:03 CDT CPT-69233 Chest 2V Frontal and Lat 14:00:18 CDT CPT-OV Office Visit 16:10:28 CDT CPT-JTINJ Asp/Joint Injection 09:03:57 CDT CPT-Cryo Cryotherapy 09:35:49 INSTRUCTIONAL SYSTEMS DESIGN CONSULTANT CPT-JTINJ Asp/Joint Injection 09:34:45 INSTRUCTIONAL SYSTEMS DESIGN CONSULTANT CPT-J2930 Solu Medrol 125 mg (Methyl Prednisolone Sodium Succinate) 20:37:27 CDT CPT-41680 Abx/Therapy Injection 20:37:27 CDT CPT-87165 Port a cath flush 08:15:51 CDT CPT-12227 Port a cath flush 09:54:16 T CPT-65024 Port a cath flush 09:38:02 T CPT-68564 Port a cath flush 11:00:27 INSTRUCTIONAL SYSTEMS DESIGN CONSULTANT
--- OUTSIDE RECORDS SUMMARY | 2017-12-29 03:13 | XMS REPORT | Clinical Summary ---
Author Author Admin, QIE Organization [facility] Address Unknown Phone Unavailable Allergies, Adverse Reactions, [...] pain, right lower quadrant 789.03 Resolved Harinder rC David DO Abdominal pain, right [...] MG/0.3ML INJ SOAJ 1 INJ NEEDED EPINEPHRINE 96405097997 Active Tawnya Pardo MA Active PREDNISONE 20 MG TAB 1 tab twice daily for 3 day, then one daily for three days PREDNISONE 73419996971 No Longer Active Harinder Hernandez DO Active PREDNISONE 20 MG TAB 1 tablet twice daily for 2 days, then 1 tablet once daily for 2 days PREDNISONE 09510858437 No Longer Active Harinder Hernandez DO Active ASMANEX 120 METERED DOSES 220 MCG/INH INH AEPB 2 puffs orally twice daily MOMETASONE FUROATE 62119052939 Active Jeri Sosa RPT,RMA Active NIFEDIPINE ER 30 MG ORAL [id number] 1 daily NIFEDIPINE 31056305277 Active Kaylah Newberry Active TOPIRAMATE 25 MG TABS 1 tab po BID TOPIRAMATE 29725742513 No Longer Active Nettie Newberry APRN Active AMLODIPINE BESYLATE 5 MG ORAL TABS Take 1 tab po daily AMLODIPINE BESYLATE 56202382105 No Longer Active Nettie Newberry APRN Active MECLIZINE HCL 25 MG TAB 1 tablet three times daily for 3 days, then 1/2 tab three times daily for 3 days. MECLIZINE HCL 08188112511 No Longer Active Nettie Newberry APRN Active AMITRIPTYLINE HCL 25 MG ORAL TABS 1 q hs prn AMITRIPTYLINE HCL 51395658696 No Longer Active Nettie Newberry APRN Active DILAUDID 2 MG ORAL TABS Take 1/2 tab po every 4 hours as needed for pain 2014 HYDROMORPHONE HCL 90684106943 No Longer Active Nettie Newberry APRN Active CLOPIDOGREL BISULFATE 75 MG ORAL TABS 1 tab by mouth once daily CLOPIDOGREL BISULFATE 01239331169 Active Tawnya Pardo MA Active ATORVASTATIN CALCIUM 10 MG ORAL TABS 1 at bedtime ATORVASTATIN CALCIUM 81913801827 Active Tawnya Pardo MA Active LOVASTATIN 40 MG ORAL TABS Take 1 tab po every hs LOVASTATIN 60526604750 No Longer Active Harinder Hernandez DO Active PREDNISONE 20 MG TAB 2 tabs daily for 4 days, 1 tab daily for 4 days, 1/2 tab daily for 4 days PREDNISONE 60644379575 No Longer Active Harinder Hernandez DO Active LEVAQUIN 500 MG ORAL TABS Take 1 tab po daily x 8 days LEVOFLOXACIN 57651955106 No Longer Active Harinder Hernandez DO Active VENTOLIN HFA 108 (90 BASE) MCG/ACT AERS 2 -4 puffs four times a day PRN 2013 ALBUTEROL SULFATE 58447409393 No Longer Active Jeri Sosa RPT,RMA Active ACEBUTOLOL HCL 200 MG CAPS 1 cap in the morning and 2 caps in the evening ACEBUTOLOL HCL 97236416181 No Longer Active Harinder Hernandez DO Active CEFDINIR 300 MG ORAL CAPS take 1 cap po bid x 10 days CEFDINIR 03511099015 No Longer Active Harinder Hernandez DO Active LOVASTATIN 40 MG TABS 1 pill by mouth nightly for cholesterol LOVASTATIN 77171213696 No Longer Active Nettie Newberry APRN Active NITROSTAT 0.4 MG SUBL 1 tab under tongueas needed for chest pain ( may take 3 total, 5 min apart, then call 911) NITROGLYCERIN 32896682622 No Longer Active Nettie Newberry APRN Active POTASSIUM CHLORIDE CR 10 MEQ CPCR 1 capsule by mouth daily 02/14 POTASSIUM CHLORIDE 87324891129 No Longer Active Nettie Newberry APRN Active TESSALON PERLES 100 MG CAP 1 to 2 tablets by mouth 3 times daily as needed for cough BENZONATATE 04467561155 No Longer Active Nettie Newberry APRN Active THEOPHYLLINE ER 200 MG ORAL [id number] Take 1 tab every 12 hours THEOPHYLLINE 60896855458 Active Tawnya Pardo MA Active PREDNISONE 20 MG TAB 2 po qd x 5 days PREDNISONE 11617339237 No Longer Active Jae Morgan MD Active AZITHROMYCIN 250 MG TABS 2 po qd x 1 day, then 1 po qd x 4 days AZITHROMYCIN 91558595591 No Longer Active Jae Morgan MD Active PREDNISONE 20 MG TAB 1 tab twice daily for 3 day, then one daily for three days PREDNISONE 85676213874 No Longer Active Jae Morgan MD Active SINGULAIR 10 MG TABS 1 pill by mouth every evening for breathing. MONTELUKAST SODIUM 86079328711 Active Tawnya Pardo MA Active TYLENOL 325 MG TAB 3 by mouth q4h as needed ACETAMINOPHEN 42390889472 Active Harinder Hernandez DO Active POTASSIUM CHLORIDE ER 10 MEQ CR-TABS take 1 tab po daily POTASSIUM CHLORIDE 33004614857 No Longer Active Harinder Hernandez DO Active PREDNISONE 20 MG TAB 1 TID x 2 days, then 1 BID x 3 days, then 1 Daily x 3 days, then stop PREDNISONE 93487379626 No Longer Active John Montemayor APRN Active LEVAQUIN 500 MG TAB 1 tablet by mouth daily LEVOFLOXACIN 40960288638 No Longer Active Jillkvng Montemayor APRN Active NEURONTIN 300 MG CAP 1 cap by mouth three times daily for restless leg 06/22 GABAPENTIN 94178201831 No Longer Active Harinder Hernandez DO Active BENZONATATE 100 MG CAPS 1 cap po TID PRN BENZONATATE 37910012513 No Longer Active Harinder Hernandez DO Active MONTELUKAST SODIUM 10 MG TABS 1 tab po in the evening MONTELUKAST SODIUM 71615891376 No Longer Active Harinder Hernandez DO Active MUPIROCIN 2 % OINT apply to affected area BID x 14 days MUPIROCIN 08073936242 No Longer Active Harinder Hernandez DO Active TYLENOL EXTRA STRENGTH 500 MG TABS as needed ACETAMINOPHEN 71094103109 No Longer Active Harinder Hernandez DO Active PREDNISONE 10 MG TABS 1 tab po daily PREDNISONE 79362393639 No Longer Active Harinder Hernandez DO Active PREDNISONE 20 MG TAB 2 tabs daily for 4 days, 1 tab daily for 4 days, 1/2 tab daily for 4 days PREDNISONE 92657449267 No Longer Active Harinder Hernandez DO Active AZITHROMYCIN 250 MG TABS 2 po qd x 1 day, then 1 po qd x 4 days AZITHROMYCIN 59427438190 No Longer Active Harinder Hernandez DO Active PREDNISONE 20 MG TAB 3 tabs today, then 1 tab twice daily for 3 day, then one daily for three days PREDNISONE 95010975439 No Longer Active Harinder Hernandez DO Active NIFEDIAC CC 30 MG [id number] 1 tablet daily for raynaud's syndrome NIFEDIPINE 99634412829 No Longer Active Tawnya Pardo MA Active AMBIEN 10 MG TAB 1/2 tab by mouth at bedtime as needed for sleep ZOLPIDEM TARTRATE 91177781049 Active Harinder Hernandez DO Active CLONAZEPAM 1 MG TABS 1 tablet at bedtime for insomnia and restless legs 09/14 CLONAZEPAM 68154761999 Active Kaylah Newberry Active CLONAZEPAM 0.5 MG TABS 1 tab po daily CLONAZEPAM 36199560944 No Longer Active Harinder Hernandez DO Active PREDNISONE 10 MG TAB 1 tablet daily for COPD PREDNISONE 54245516141 Active Tawnya Pardo MA Active PROAIR HFA 108 (90 BASE) MCG/ACT AERS 2 puffs four times a day as needed 2012 ALBUTEROL SULFATE 01380754086 Active Tawnya Pardo MA Active FLOVENT HFA 110 MCG/ACT AERO 2 puffs inhaled b.i.d. FLUTICASONE PROPIONATE HFA 55668947433 Active Tawnya Pardo MA Active ACIPHEX 20 MG TBEC 1 tab po daily RABEPRAZOLE SODIUM 46317225583 Active Kaylah Newberry Active CLONAZEPAM 0.5 MG TABS 1 tab po daily CLONAZEPAM 0.5 MG TABS 138196 CLONAZEPAM Inactive PREDNISONE 20 MG TAB 3 tabs today, then 1 tab twice daily for 3 day, then one daily for three days PREDNISONE 20 MG TAB 169689 PREDNISONE Inactive PREDNISONE 20 MG TAB 2 tabs daily for 4 days, 1 tab daily for 4 days, 1/2 tab daily for 4 days PREDNISONE 20 MG TAB 774164 PREDNISONE Inactive PREDNISONE 10 MG TABS 1 tab po daily PREDNISONE 10 MG TABS 969987 PREDNISONE Inactive TYLENOL EXTRA STRENGTH 500 MG TABS as needed TYLENOL EXTRA STRENGTH 500 MG TABS 611986 ACETAMINOPHEN Inactive MUPIROCIN 2 % OINT apply to affected area BID x 14 days MUPIROCIN 2 % OINT 549164 MUPIROCIN Inactive MONTELUKAST SODIUM 10 MG TABS 1 tab po in the evening MONTELUKAST SODIUM 10 MG TABS 395960 MONTELUKAST SODIUM Inactive BENZONATATE 100 MG CAPS 1 cap po TID PRN BENZONATATE 100 MG CAPS 199218 BENZONATATE Inactive NEURONTIN 300 MG CAP 1 cap by mouth three times daily for restless leg 06/22 NEURONTIN 300 MG CAP 299165 GABAPENTIN Inactive LEVAQUIN 500 MG TAB 1 tablet by mouth daily LEVAQUIN 500 MG TAB 396425 LEVOFLOXACIN Inactive PREDNISONE 20 MG TAB 1 TID x 2 days, then 1 BID x 3 days, then 1 Daily x 3 days, then stop PREDNISONE 20 MG TAB 492056 PREDNISONE Inactive POTASSIUM CHLORIDE ER 10 MEQ CR-TABS take 1 tab po daily POTASSIUM CHLORIDE ER 10 MEQ CR-TABS POTASSIUM CHLORIDE Inactive PREDNISONE 20 MG TAB 1 tab twice daily for 3 day, then one daily for three days PREDNISONE 20 MG TAB 615148 PREDNISONE Inactive TESSALON PERLES 100 MG CAP 1 to 2 tablets by mouth 3 times daily as needed for cough TESSALON PERLES 100 MG CAP 558956 BENZONATATE Inactive POTASSIUM CHLORIDE CR 10 MEQ CPCR 1 capsule by mouth daily 02/14 POTASSIUM CHLORIDE CR 10 MEQ CPCR POTASSIUM CHLORIDE Inactive NITROSTAT 0.4 MG SUBL 1 tab under tongueas needed for chest pain ( may take 3 total, 5 min apart, then call 911) NITROSTAT 0.4 MG SUBL 807933 NITROGLYCERIN Inactive LOVASTATIN 40 MG TABS 1 pill by mouth nightly for cholesterol LOVASTATIN 40 MG TABS 091061 LOVASTATIN Inactive CEFDINIR 300 MG ORAL CAPS take 1 cap po bid x 10 days CEFDINIR 300 MG ORAL CAPS 189263 CEFDINIR Inactive ACEBUTOLOL HCL 200 MG CAPS 1 cap in the morning and 2 caps in the evening ACEBUTOLOL HCL 200 MG CAPS 733050 ACEBUTOLOL HCL Inactive VENTOLIN HFA 108 (90 BASE) MCG/ACT AERS 2 -4 puffs four times a day PRN 2013 VENTOLIN HFA 108 (90 BASE) MCG/ACT AERS ALBUTEROL SULFATE Inactive LEVAQUIN 500 MG ORAL TABS Take 1 tab po daily x 8 days LEVAQUIN 500 MG ORAL TABS 697776 LEVOFLOXACIN Inactive PREDNISONE 20 MG TAB 2 tabs daily for 4 days, 1 tab daily for 4 days, 1/2 tab daily for 4 days PREDNISONE 20 MG TAB 452329 PREDNISONE Inactive LOVASTATIN 40 MG ORAL TABS Take 1 tab po every hs LOVASTATIN 40 MG ORAL TABS 745769 LOVASTATIN Inactive DILAUDID 2 MG ORAL TABS Take 1/2 tab po every 4 hours as needed for pain 2014 DILAUDID 2 MG ORAL TABS 668932 HYDROMORPHONE HCL Inactive AMITRIPTYLINE HCL 25 MG ORAL TABS 1 q hs prn AMITRIPTYLINE HCL 25 MG ORAL TABS 325760 AMITRIPTYLINE HCL Inactive MECLIZINE HCL 25 MG TAB 1 tablet three times daily for 3 days, then 1/2 tab three times daily for 3 days. MECLIZINE HCL 25 MG TAB 313848 MECLIZINE HCL Inactive AMLODIPINE BESYLATE 5 MG ORAL TABS Take 1 tab po daily AMLODIPINE BESYLATE 5 MG ORAL TABS 305603 AMLODIPINE BESYLATE Inactive TOPIRAMATE 25 MG TABS 1 tab po BID TOPIRAMATE 25 MG TABS 419361 TOPIRAMATE Inactive PREDNISONE 20 MG TAB 1 tablet twice daily for 2 days, then 1 tablet once daily for 2 days PREDNISONE 20 MG TAB 289817 PREDNISONE Inactive PREDNISONE 20 MG TAB 1 tab twice daily for 3 day, then one daily for three days PREDNISONE 20 MG TAB 326420 PREDNISONE Inactive AZITHROMYCIN 250 MG TABS 2 po qd x 1 day, then 1 po qd x 4 days AZITHROMYCIN 250 MG TABS 8225707 AZITHROMYCIN Inactive AZITHROMYCIN 250 MG TABS 2 po qd x 1 day, then 1 po qd x 4 days AZITHROMYCIN 250 MG TABS 0065638 AZITHROMYCIN Inactive PREDNISONE 20 MG TAB 2 po qd x 5 days PREDNISONE 20 MG TAB 502616 PREDNISONE Inactive Vital Signs Date Name Value [...] Magnesium - Chemistry cholesterol, serum 180 mg/dL 547-577 0491/08/08 triglyceride, serum, fasting 92 mg/dL 30-200 HDL cholesterol, serum 66 mg/dL 32-96 LDL cholesterol, serum 96 mg/dL 0-130 sodium, serum 142 mmol/L 046-372 1309/08/08 carbon dioxide, venous blood 27.4 mmol/L 21.0-32.0 [...] 10.0-20.0 Encounters Code Encounter Date Provider Facility CPT-15751 Level 3 Est. Patient 09:58:58 CDT Harinder Cr [facility] CPT-86142 Level 3 Est. Patient 12:37:21 CDT Harinder Cr [facility] CPT-99903 Level 3 Est. Patient 18:37:17 CDT Harinder Cr [facility] CPT-82952 Level 4 Est. Patient 11:15:54 CDT Nettie Newberry APRN [facility] CPT-04049 Level 3 Est. Patient 16:42:24 CDT Harinder Cr [facility] CPT-86756 Level 3 Est. Patient 15:03:36 CDT Harinder Cr [facility] CPT-98002 Level 3 Est. Patient 15:03:20 CDT Harinder Hernandez [facility] CPT-33317 Level 3 Est. Patient 12:14:34 CDT Harinder Hernandez [facility] CPT-72790 Level 3 Est. Patient 13:47:15 CDT Harinder Hernandez [facility] CPT-86948 Level 3 Est. Patient 14:08:24 CDT Harinder Hernnadez [facility] CPT-74560 Level 3 Est. Patient 10:07:15 CDT Harinder Hernandez [facility] CPT-06742 Level 3 Est. Patient 10:06:59 CDT Harinder Hernandez [facility] CPT-24368 Level 3 Est. Patient 15:53:29 CDT Jae Morgan MD [facility] CPT-65283 Level 3 Est. Patient 17:19:04 CDT Harinder Hernandez [facility] CPT-09634 Level 3 Est. Patient 11:13:01 CDT Harinder Hernandez [facility] CPT-96644 Level 3 Est. Patient 09:03:58 CDT Harinder Hernandez [facility] CPT-80565 Level 3 Est. Patient 14:46:45 MELTER HELPER Harinder Hernandez [facility] CPT-58140 Level 3 Est. Patient 09:35:49 MELTER HELPER Harinder Hernandez [facility] CPT-66944 Level 3 Est. Patient 09:29:37 MELTER HELPER Harinder Hernandez [facility] CPT-87127 Level 3 Est. Patient 15:51:07 CDT Harinder Hernandez [facility] CPT-95838 Level 3 Est. Patient 18:13:13 CDT Harinder Cr [facility] CPT-90372 Level 3 Est. Patient 10:44:19 CDT Harinder Hernandez [facility] CPT-75026 Level 4 Est. Patient 10:07:19 MELTER HELPER Harinder Hernandez [facility] CPT-57468 Level 3 Est. Patient 15:59:32 MELTER HELPER Harinder Cr [facility] Procedures Code Procedure Name Date Entry Date Standard Description CPT-21428 Microalbumin - LAB USE ONLY 11:52:05 CDT CPT-TCMM Transitional Care Mgmt-Moderate 11:33:57 CDT CPT-79754 No Charge Offi Visit 14:11:29 CDT CPT-33820 Magnesium - LAB USE ONLY 10:45:44 CDT CPT-45265 Lipid - LAB USE ONLY 10:45:44 CDT CPT-34171 CBC - LAB USE ONLY 10:45:44 CDT CPT-34335 Venipuncture Draw Fee 10:45:43 CDT CPT-74426 Venipuncture Draw Fee 18:21:27 CDT CPT-JTINJ Asp/Joint Injection 18:38:04 CDT CPT-06496 Immunization Each Additional Inj 17:38:04 CDT CPT-53559 Immunization Single Admin 17:38:04 CDT CPT-29922 Prevnar 13 17:38:04 CDT CPT-21312 Fluzone Quadrivalent preservative free (>=3yrs.) 17:38: 04 CDT CPT-93689 No Charge Offi Visit 11:14:03 CDT CPT-34143 Chest 2V Frontal and Lat 14:00:18 CDT CPT-OV Office Visit 16:10:28 CDT CPT-JTINJ Asp/Joint Injection 09:03:57 CDT CPT-Cryo Cryotherapy 09:35:49 MELTER HELPER CPT-JTINJ Asp/Joint Injection 09:34:45 MELTER HELPER CPT-J2930 Solu Medrol 125 mg (Methyl Prednisolone Sodium Succinate) 20:37:27 CDT CPT-69938 Abx/Therapy Injection 20:37:27 CDT CPT-48053 Port a cath flush 08:15:51 CDT CPT-26230 Port a cath flush 09:54:16 CDT CPT-76846 Port a cath flush 09:38:02 CDT CPT-01638 Port a cath flush 11:00:27 MELTER HELPER
--- OUTSIDE RECORDS SUMMARY | 2017-12-29 03:15 | XMS REPORT | Clinical Summary ---
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 NIFEDIPINE 81025664894 Active Harinder Hernandez DO Active AMLODIPINE BESYLATE 5 MG TABS 1 tablet by mouth daily AMLODIPINE BESYLATE 89984602337 No Longer Active Harinder Hernandez DO Active TOPAMAX 25 MG ORAL TABS 1 tab po BID TOPIRAMATE 17783228123 Active Kortney Mccain Active FLUTICASONE PROPIONATE 50 MCG/ACT SUSP 2 sprays per nostril daily PRN Allergies FLUTICASONE PROPIONATE 45787619485 Active Kortney Mccain Active NIFEDIPINE ER 30 MG ORAL [id number] 1 daily NIFEDIPINE 65737909850 No Longer Active Harinder Hernandez DO Active POTASSIUM CHLORIDE 20 MEQ ORAL PACK Take 1 tablet by mouth daily POTASSIUM CHLORIDE 51955235821 Active Ciera Pimentel Active FLOVENT HFA 110 MCG/ACT AERO 2 puffs inhaled b.i.d. FLUTICASONE PROPIONATE HFA 85430808210 Active Harinder Hernandez DO Active POTASSIUM CHLORIDE CR 10 MEQ CPCR 1 capsule by mouth daily POTASSIUM CHLORIDE 27676879694 Active Harinder Hernandez DO Active EPIPEN 2-BRUNA 0.3 MG/0.3ML INJ SOAJ 1 INJ NEEDED EPINEPHRINE 45962588072 Active Harinder Hernandez DO Active PREDNISONE 20 MG TAB 1 tab twice daily for 3 day, then one daily for three days PREDNISONE 60094776490 No Longer Active Harinder Hernandez DO Active PREDNISONE 20 MG TAB 1 tablet twice daily for 2 days, then 1 tablet once daily for 2 days PREDNISONE 15189207898 No Longer Active Harinder Hernandez DO Active ASMANEX 120 METERED DOSES 220 MCG/INH INH AEPB 2 puffs orally twice daily MOMETASONE FUROATE 18046082063 Active Jeri Sosa RPT,RMA Active TOPIRAMATE 25 MG TABS 1 tab po BID TOPIRAMATE 94739214222 No Longer Active Nettie Newberry APRN Active AMLODIPINE BESYLATE 5 MG ORAL TABS Take 1 tab po daily AMLODIPINE BESYLATE 82784452847 No Longer Active Nettie Newberry APRN Active MECLIZINE HCL 25 MG TAB 1 tablet three times daily for 3 days, then 1/2 tab three times daily for 3 days. MECLIZINE HCL 82068523550 No Longer Active Nettie Newberry APRN Active AMITRIPTYLINE HCL 25 MG ORAL TABS 1 q hs prn AMITRIPTYLINE HCL 26728028606 No Longer Active Nettie Newberry APRN Active DILAUDID 2 MG ORAL TABS Take 1/2 tab po every 4 hours as needed for pain 2014 HYDROMORPHONE HCL 28848229159 No Longer Active Nettie Newberry APRN Active CLOPIDOGREL BISULFATE 75 MG ORAL TABS 1 tab by mouth once daily CLOPIDOGREL BISULFATE 45527595293 Active Harinder Hernandez DO Active ATORVASTATIN CALCIUM 10 MG ORAL TABS 1 at bedtime ATORVASTATIN CALCIUM 19974216707 Active Tawnya Pardo MA Active LOVASTATIN 40 MG ORAL TABS Take 1 tab po every hs LOVASTATIN 56477544172 No Longer Active Harinder Hernandez DO Active PREDNISONE 20 MG TAB 2 tabs daily for 4 days, 1 tab daily for 4 days, 1/2 tab daily for 4 days PREDNISONE 65014825003 No Longer Active Harinder Hernandez DO Active LEVAQUIN 500 MG ORAL TABS Take 1 tab po daily x 8 days LEVOFLOXACIN 76437515942 No Longer Active Harinder Hernandez DO Active VENTOLIN HFA 108 (90 BASE) MCG/ACT AERS 2 -4 puffs four times a day PRN 2013 ALBUTEROL SULFATE 57544684038 No Longer Active Jeri Sosa RPT,RMA Active ACEBUTOLOL HCL 200 MG CAPS 1 cap in the morning and 2 caps in the evening ACEBUTOLOL HCL 86670703931 No Longer Active Harinder Hernandez DO Active CEFDINIR 300 MG ORAL CAPS take 1 cap po bid x 10 days CEFDINIR 11099229970 No Longer Active Harinder Hernandez DO Active LOVASTATIN 40 MG TABS 1 pill by mouth nightly for cholesterol LOVASTATIN 88360676444 No Longer Active Nettie Newberry APRN Active NITROSTAT 0.4 MG SUBL 1 tab under tongueas needed for chest pain ( may take 3 total, 5 min apart, then call 911) NITROGLYCERIN 10651325673 No Longer Active Nettie Newberry APRN Active POTASSIUM CHLORIDE CR 10 MEQ CPCR 1 capsule by mouth daily 02/14 POTASSIUM CHLORIDE 22836645899 No Longer Active Nettie Newberry APRN Active TESSALON PERLES 100 MG CAP 1 to 2 tablets by mouth 3 times daily as needed for cough BENZONATATE 99445746134 No Longer Active Nettie Newberry APRN Active THEOPHYLLINE ER 200 MG ORAL [id number] Take 1 tab every 12 hours THEOPHYLLINE 78013155725 Active Tawnya Pardo MA Active PREDNISONE 20 MG TAB 2 po qd x 5 days PREDNISONE 88150801929 No Longer Active Jae Morgan MD Active AZITHROMYCIN 250 MG TABS 2 po qd x 1 day, then 1 po qd x 4 days AZITHROMYCIN 95940658111 No Longer Active Jae Morgan MD Active PREDNISONE 20 MG TAB 1 tab twice daily for 3 day, then one daily for three days PREDNISONE 38532476196 No Longer Active Jae Morgan MD Active SINGULAIR 10 MG TABS 1 pill by mouth every evening for breathing. MONTELUKAST SODIUM 55936799887 Active Tawnya Pardo MA Active TYLENOL 325 MG TAB 3 by mouth q4h as needed ACETAMINOPHEN 35437721764 Active Harinder Hernandez DO Active POTASSIUM CHLORIDE ER 10 MEQ CR-TABS take 1 tab po daily POTASSIUM CHLORIDE 75725947602 No Longer Active Harinder Hernandez DO Active PREDNISONE 20 MG TAB 1 TID x 2 days, then 1 BID x 3 days, then 1 Daily x 3 days, then stop PREDNISONE 95424970793 No Longer Active Jillina Frazell STUDENT COUNSELOR Active LEVAQUIN 500 MG TAB 1 tablet by mouth daily LEVOFLOXACIN 68238194737 No Longer Active Jillina Frazell STUDENT COUNSELOR Active NEURONTIN 300 MG CAP 1 cap by mouth three times daily for restless leg 06/22 GABAPENTIN 44524939742 No Longer Active Harinder Hernandez DO Active BENZONATATE 100 MG CAPS 1 cap po TID PRN BENZONATATE 73612217369 No Longer Active Harinder Hernandez DO Active MONTELUKAST SODIUM 10 MG TABS 1 tab po in the evening MONTELUKAST SODIUM 29441725440 No Longer Active Harinder Hernandez DO Active MUPIROCIN 2 % OINT apply to affected area BID x 14 days MUPIROCIN 21121276954 No Longer Active Harinder Hernandez DO Active TYLENOL EXTRA STRENGTH 500 MG TABS as needed ACETAMINOPHEN 80507278231 No Longer Active Harinder Hernandez DO Active PREDNISONE 10 MG TABS 1 tab po daily PREDNISONE 63698357374 No Longer Active Harinder Hernandez DO Active PREDNISONE 20 MG TAB 2 tabs daily for 4 days, 1 tab daily for 4 days, 1/2 tab daily for 4 days PREDNISONE 70260014363 No Longer Active Harinder Hernandez DO Active AZITHROMYCIN 250 MG TABS 2 po qd x 1 day, then 1 po qd x 4 days AZITHROMYCIN 68787755318 No Longer Active Harinder Hernandez DO Active PREDNISONE 20 MG TAB 3 tabs today, then 1 tab twice daily for 3 day, then one daily for three days PREDNISONE 34229282369 No Longer Active Harinder Hernandez DO Active NIFEDIAC CC 30 MG [id number] 1 tablet daily for raynaud's syndrome NIFEDIPINE 77456813994 No Longer Active Tawnya Pardo MA Active AMBIEN 10 MG TAB 1/2 tab by mouth at bedtime as needed for sleep ZOLPIDEM TARTRATE 18915611461 Active Kortney Mccain Active CLONAZEPAM 1 MG TABS 1 tablet at bedtime for insomnia and restless legs 09/14 CLONAZEPAM 69264493554 Active Harinder Hernandez DO Active CLONAZEPAM 0.5 MG TABS 1 tab po daily CLONAZEPAM 37409585181 No Longer Active Harinder Hernandez DO Active PREDNISONE 10 MG TAB 1 tablet daily for COPD PREDNISONE 81309025762 Active Ciera Pimentel Active PROAIR HFA 108 (90 BASE) MCG/ACT AERS 2 puffs four times a day as needed 2012 ALBUTEROL SULFATE 17272525250 Active Harinder Hernandez DO Active FLOVENT HFA 110 MCG/ACT AERO 2 puffs inhaled b.i.d. FLUTICASONE PROPIONATE HFA 84487544023 Active Kortney Mccain Active ACIPHEX 20 MG TBEC 1 tab po daily RABEPRAZOLE SODIUM 18743788824 Active Kaylah Newberry Active CLONAZEPAM 0.5 MG TABS 1 tab po daily CLONAZEPAM 0.5 MG TABS 718998 CLONAZEPAM Inactive PREDNISONE 20 MG TAB 3 tabs today, then 1 tab twice daily for 3 day, then one daily for three days PREDNISONE 20 MG TAB 936527 PREDNISONE Inactive PREDNISONE 20 MG TAB 2 tabs daily for 4 days, 1 tab daily for 4 days, 1/2 tab daily for 4 days PREDNISONE 20 MG TAB 268824 PREDNISONE Inactive PREDNISONE 10 MG TABS 1 tab po daily PREDNISONE 10 MG TABS 693826 PREDNISONE Inactive TYLENOL EXTRA STRENGTH 500 MG TABS as needed TYLENOL EXTRA STRENGTH 500 MG TABS 351611 ACETAMINOPHEN Inactive MUPIROCIN 2 % OINT apply to affected area BID x 14 days MUPIROCIN 2 % OINT 881283 MUPIROCIN Inactive MONTELUKAST SODIUM 10 MG TABS 1 tab po in the evening MONTELUKAST SODIUM 10 MG TABS 20010818 MONTELUKAST SODIUM Inactive BENZONATATE 100 MG CAPS 1 cap po TID PRN BENZONATATE 100 MG CAPS 545672 BENZONATATE Inactive NEURONTIN 300 MG CAP 1 cap by mouth three times daily for restless leg 06/22 NEURONTIN 300 MG CAP 807166 GABAPENTIN Inactive LEVAQUIN 500 MG TAB 1 tablet by mouth daily LEVAQUIN 500 MG TAB 093771 LEVOFLOXACIN Inactive PREDNISONE 20 MG TAB 1 TID x 2 days, then 1 BID x 3 days, then 1 Daily x 3 days, then stop PREDNISONE 20 MG TAB 400613 PREDNISONE Inactive POTASSIUM CHLORIDE ER 10 MEQ CR-TABS take 1 tab po daily POTASSIUM CHLORIDE ER 10 MEQ CR-TABS POTASSIUM CHLORIDE Inactive PREDNISONE 20 MG TAB 1 tab twice daily for 3 day, then one daily for three days PREDNISONE 20 MG TAB 049383 PREDNISONE Inactive TESSALON PERLES 100 MG CAP 1 to 2 tablets by mouth 3 times daily as needed for cough TESSALON PERLES 100 MG CAP 253787 BENZONATATE Inactive POTASSIUM CHLORIDE CR 10 MEQ CPCR 1 capsule by mouth daily 02/14 POTASSIUM CHLORIDE CR 10 MEQ CPCR POTASSIUM CHLORIDE Inactive NITROSTAT 0.4 MG SUBL 1 tab under tongueas needed for chest pain ( may take 3 total, 5 min apart, then call 911) NITROSTAT 0.4 MG SUBL 084155 NITROGLYCERIN Inactive LOVASTATIN 40 MG TABS 1 pill by mouth nightly for cholesterol LOVASTATIN 40 MG TABS 432220 LOVASTATIN Inactive CEFDINIR 300 MG ORAL CAPS take 1 cap po bid x 10 days CEFDINIR 300 MG ORAL CAPS 667479 CEFDINIR Inactive ACEBUTOLOL HCL 200 MG CAPS 1 cap in the morning and 2 caps in the evening ACEBUTOLOL HCL 200 MG CAPS 464839 ACEBUTOLOL HCL Inactive VENTOLIN HFA 108 (90 BASE) MCG/ACT AERS 2 -4 puffs four times a day PRN 2013 VENTOLIN HFA 108 (90 BASE) MCG/ACT AERS ALBUTEROL SULFATE Inactive LEVAQUIN 500 MG ORAL TABS Take 1 tab po daily x 8 days LEVAQUIN 500 MG ORAL TABS 833753 LEVOFLOXACIN Inactive PREDNISONE 20 MG TAB 2 tabs daily for 4 days, 1 tab daily for 4 days, 1/2 tab daily for 4 days PREDNISONE 20 MG TAB 608239 PREDNISONE Inactive LOVASTATIN 40 MG ORAL TABS Take 1 tab po every hs LOVASTATIN 40 MG ORAL TABS 252728 LOVASTATIN Inactive DILAUDID 2 MG ORAL TABS Take 1/2 tab po every 4 hours as needed for pain 2014 DILAUDID 2 MG ORAL TABS 159435 HYDROMORPHONE HCL Inactive AMITRIPTYLINE HCL 25 MG ORAL TABS 1 q hs prn AMITRIPTYLINE HCL 25 MG ORAL TABS 314833 AMITRIPTYLINE HCL Inactive MECLIZINE HCL 25 MG TAB 1 tablet three times daily for 3 days, then 1/2 tab three times daily for 3 days. MECLIZINE HCL 25 MG TAB 826840 MECLIZINE HCL Inactive AMLODIPINE BESYLATE 5 MG ORAL TABS Take 1 tab po daily AMLODIPINE BESYLATE 5 MG ORAL TABS 023951 AMLODIPINE BESYLATE Inactive TOPIRAMATE 25 MG TABS 1 tab po BID TOPIRAMATE 25 MG TABS 984968 TOPIRAMATE Inactive PREDNISONE 20 MG TAB 1 tablet twice daily for 2 days, then 1 tablet once daily for 2 days PREDNISONE 20 MG TAB 818314 PREDNISONE Inactive PREDNISONE 20 MG TAB 1 tab twice daily for 3 day, then one daily for three days PREDNISONE 20 MG TAB 405411 PREDNISONE Inactive NIFEDIPINE ER 30 MG ORAL [id number] 1 daily NIFEDIPINE ER 30 MG ORAL [id number] NIFEDIPINE Inactive AMLODIPINE BESYLATE 5 MG TABS 1 tablet by mouth daily AMLODIPINE BESYLATE 5 MG TABS 624337 AMLODIPINE BESYLATE Inactive AZITHROMYCIN 250 MG TABS 2 po qd x 1 day, then 1 po qd x 4 days AZITHROMYCIN 250 MG TABS 3913708 AZITHROMYCIN Inactive AZITHROMYCIN 250 MG TABS 2 po qd x 1 day, then 1 po qd x 4 days AZITHROMYCIN 250 MG TABS 4588498 AZITHROMYCIN Inactive PREDNISONE 20 MG TAB 2 po qd x 5 days PREDNISONE 20 MG TAB 225976 PREDNISONE Inactive Vital Signs Date Name Value [...] Panel - Chemistry sodium, serum 137 mmol/L 962-251 1360/01/03 potassium, serum 3.4 mmol/L 3.5-5.2 chloride, serum [...] Magnesium - Chemistry cholesterol, serum 180 mg/dL 014-276 6638/08/08 triglyceride, serum, fasting 92 mg/dL 30-200 HDL cholesterol, serum 66 mg/dL 32-96 LDL cholesterol, serum 96 mg/dL 0-130 sodium, serum 142 mmol/L 661-285 4570/08/08 carbon dioxide, venous blood 27.4 mmol/L 21.0-32.0 [...] 10.0-20.0 Encounters Code Encounter Date Provider Facility CPT-41053 Level 4 Est. Patient 10:19:23 CDT Harinder Cr [facility] CPT-20904 Level 3 Est. Patient 09:58:58 CDT Harinder Cr [facility] CPT-67325 Level 3 Est. Patient 12:37:21 CDT Harinder Cr [facility] CPT-54514 Level 3 Est. Patient 18:37:17 CDT [facility] CPT-38315 Level 4 Est. Patient 11:15:54 CDT Nettie Roh[facility] CPT-63686 Level 3 Est. Patient 16:42:24 CDT Harinder Cr [facility] CPT-12996 Level 3 Est. Patient 15:03:36 CDT Hairnder Cr [facility] CPT-69934 Level 3 Est. Patient 15:03:20 CDT Harinder Cr [facility] CPT-38988 Level 3 Est. Patient 12:14:34 CDT Harinder Cr [facility] CPT-91007 Level 3 Est. Patient 13:47:15 CDT Harinder Cr [facility] CPT-11681 Level 3 Est. Patient 14:08:24 CDT Harinder Cr [facility] CPT-50899 Level 3 Est. Patient 10:07:15 CDT Harinder Cr [facility] CPT-85327 Level 3 Est. Patient 10:06:59 CDT Harinder Hernandez [facility] CPT-14008 Level 3 Est. Patient 15:53:29 CDT Jae Morgan MD [facility] CPT-52351 Level 3 Est. Patient 17:19:04 CDT Harinder Hernandez [facility] CPT-98564 Level 3 Est. Patient 11:13:01 CDT Harinder Hernandez [facility] CPT-70584 Level 3 Est. Patient 09:03:58 CDT Harinder Cr [facility] CPT-35109 Level 3 Est. Patient 14:46:45 CRANK HAND Harinder Hernandez [facility] CPT-78235 Level 3 Est. Patient 09:35:49 CRANK HAND Harinder Hernandez [facility] CPT-19431 Level 3 Est. Patient 09:29:37 CRANK HAND Harinder Hernandez [facility] CPT-12013 Level 3 Est. Patient 15:51:07 CDT Harinder Hernandez [facility] CPT-63218 Level 3 Est. Patient 18:13:13 CDT Harinder Hernandez [facility] CPT-95340 Level 3 Est. Patient 10:44:19 CDT Harinder Hernandez [facility] CPT-39342 Level 4 Est. Patient 10:07:19 CRANK HAND Harinder Cr [facility] CPT-41253 Level 3 Est. Patient 15:59:32 CRANK HAND Harinder Cr [facility] Procedures Code Procedure Name Date Entry Date Standard Description CPT-24504 Hip, complete, 2-3 views - XRAY USE ONLY 10:28:40 CDT CPT-57410 BMP - LAB USE ONLY 16:45:09 CRANK HAND CPT-05285 Port a cath flush 12:00:13 CRANK HAND CPT-TCMM Transitional Care Mgmt-Moderate 11:20:16 CRANK HAND CPT-00602 First Vx - Ix admin for Medicare patients 17:35:15 CDT CPT-21002 Fluzone Preservative Free Intramuscular Suspension 17:35 :15 CDT CPT-63745 Microalbumin - LAB USE ONLY 11:52:05 CDT CPT-TCMM Transitional Care Mgmt-Moderate 11:33:57 CDT CPT-15578 No Charge Offi Visit 14:11:29 CDT CPT-75840 Magnesium - LAB USE ONLY 10:45:44 CDT CPT-72019 Lipid - LAB USE ONLY 10:45:44 CDT CPT-86047 CBC - LAB USE ONLY 10:45:44 CDT CPT-57391 Venipuncture Draw Fee 10:45:43 CDT CPT-38103 Venipuncture Draw Fee 18:21:27 CDT CPT-JTINJ Asp/Joint Injection 18:38:04 CDT CPT-66982 Immunization Each Additional Inj 17:38:04 CDT CPT-72301 Immunization Single Admin 17:38:04 CDT CPT-37557 Prevnar 13 17:38:04 CDT CPT-67161 Fluzone Quadrivalent preservative free (>=3yrs.) 17:38: 04 CDT CPT-08404 No Charge Offi Visit 11:14:03 CDT CPT-14126 Chest 2V Frontal and Lat 14:00:18 CDT CPT-OV Office Visit 16:10:28 CDT CPT-JTINJ Asp/Joint Injection 09:03:57 CDT CPT-Cryo Cryotherapy 09:35:49 CRANK HAND CPT-JTINJ Asp/Joint Injection 09:34:45 CRANK HAND CPT-J2930 Solu Medrol 125 mg (Methyl Prednisolone Sodium Succinate) 20:37:27 CDT CPT-13596 Abx/Therapy Injection 20:37:27 CDT CPT-24275 Port a cath flush 08:15:51 CDT CPT-34559 Port a cath flush 09:54:16 CDT CPT-24503 Port a cath flush 09:38:02 CDT CPT-63398 Port a cath flush 11:00:27 CRANK HAND
--- OUTSIDE RECORDS SUMMARY | 2017-12-29 03:17 | XMS REPORT | Clinical Summary ---
Author Author Admin, QIE Organization [facility] [employer] Address Unknown Phone Unavailable Allergies, Adverse Reactions, [...] site Right leg pain 729.5 Active Harinder Sahye Hernandez DO Pain in limb Viral upper [...] 1 tablet by mouth days 2-3 PREDNISONE 10605795225 Active Meenu Alejo LPN Active NITROSTAT 0.4 MG SUBLINGUAL TABLET SUBLINGUAL 1 tab SL q5min PRN chest pain NITROGLYCERIN 36215742240 Active Meenu Alejo LPN Active THEOPHYLLINE ER 300 MG ORAL TABLET EXTENDED RELEASE 12 HOUR 1 po BID THEOPHYLLINE 05830136507 Active Kortney Mccain Active POTASSIUM CHLORIDE ER 20 MEQ ORAL TABLET EXTENDED RELEASE 1 po q day POTASSIUM CHLORIDE 68643015447 Active Kortney Mccain Active POTASSIUM CHLORIDE 20 MEQ ORAL PACKET 1 tab po q day POTASSIUM CHLORIDE 89303344928 No Longer Active Kortney Mccain Active POTASSIUM CHLORIDE ER 10 MEQ ORAL CAPSULE EXTENDED RELEASE 1 capsule BID 2016 POTASSIUM CHLORIDE 40372881846 No Longer Active Kortney Mccain Active LASIX 20 MG ORAL TABLET 1 tablet by mouth every morning FUROSEMIDE 04554641238 No Longer Active Kortney Mccain Active SPIRONOLACTONE 25 MG ORAL TABLET 1 tablet by mouth daily SPIRONOLACTONE 91536148764 Active Kortney Mccain Active FLUOXETINE HCL 10 MG ORAL CAPSULE 1 po qd for depression/anxiety FLUOXETINE HCL 05807307861 Active Harinder Hernandez DO Active VOLTAREN 1 % TRANSDERMAL GEL apply q 6-8 hour to left arm as needed for pain DICLOFENAC SODIUM 89284402646 Active Kortney Mccain Active ALBUTEROL SULFATE (2.5 MG/3ML) 0.083% INHALATION NEBULIZATION SOLUTION 1 vial neb q 4hrs for severe asthma. 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 NIFEDIPINE 20585474221 Active Kortney Mccain Active AMLODIPINE BESYLATE 5 MG ORAL TABLET 1 tablet by mouth daily 2016 AMLODIPINE BESYLATE 09857281000 No Longer Active Harinder Hernandez DO Active TOPAMAX 25 MG ORAL TABLET 1 tab po BID TOPIRAMATE 68344630115 Active Kortney Mccain Active FLUTICASONE PROPIONATE 50 MCG/ACT NASAL SUSPENSION 2 sprays per nostril daily PRN Allergies FLUTICASONE PROPIONATE 80250795775 Active Meenu Alejo LPN Active NIFEDIPINE ER 30 MG ORAL TABLET EXTENDED RELEASE 24 HOUR 1 daily NIFEDIPINE 55893207182 No Longer Active Harinder Hernandez DO Active FLOVENT HFA 110 MCG/ACT INHALATION AEROSOL 2 puffs inhaled b.i.d. FLUTICASONE PROPIONATE HFA 51681196894 Active Harinder Hernandez DO Active EPIPEN 2-BRUNA 0.3 MG/0.3ML INJECTION SOLUTION AUTO-INJECTOR 1 INJ NEEDED EPINEPHRINE 72748064768 Active Kortney Mccain Active PREDNISONE 20 MG ORAL TABLET 1 tab twice daily for 3 day, then one daily for three days PREDNISONE 35273004714 No Longer Active Harinder Hernandez DO Active PREDNISONE 20 MG ORAL TABLET 1 tablet twice daily for 2 days, then 1 tablet once daily for 2 days PREDNISONE 27972215933 No Longer Active Harinder Hernandez DO Active ASMANEX 120 METERED DOSES 220 MCG/INH INHALATION AEROSOL POWDER BREATH ACTIVATED 2 puffs orally twice daily MOMETASONE FUROATE 78232511766 Active Jeri Sosa LPN Active TOPIRAMATE 25 MG ORAL TABLET 1 tab po BID TOPIRAMATE 60523512886 No Longer Active Nettie Newberry APRN Active AMLODIPINE BESYLATE 5 MG ORAL TABLET Take 1 tab po daily AMLODIPINE BESYLATE 06976227774 No Longer Active Nettie Newberry APRN Active MECLIZINE HCL 25 MG ORAL TABLET 1 tablet three times daily for 3 days, then 1/ 2 tab three times daily for 3 days. MECLIZINE HCL 80311078179 No Longer Active Nettie Newberry APRN Active AMITRIPTYLINE HCL 25 MG ORAL TABLET 1 q hs prn AMITRIPTYLINE HCL 03019195203 No Longer Active Nettie Newberry APRN Active DILAUDID 2 MG ORAL TABLET Take 1/2 tab po every 4 hours as needed for pain HYDROMORPHONE HCL 71198864728 No Longer Active Nettie Newberry APRN Active CLOPIDOGREL BISULFATE 75 MG ORAL TABLET 1 tab by mouth once daily CLOPIDOGREL BISULFATE 36611081405 Active Meenu Alejo LPN Active ATORVASTATIN CALCIUM 10 MG ORAL TABLET 1 at bedtime ATORVASTATIN CALCIUM 22400713386 Active Kortney Mccain Active LOVASTATIN 40 MG ORAL TABLET Take 1 tab po every hs LOVASTATIN 22070886634 No Longer Active Harinder Hernandez DO Active PREDNISONE 20 MG ORAL TABLET 2 tabs daily for 4 days, 1 tab daily for 4 days, 1/2 tab daily for 4 days PREDNISONE 25922737541 No Longer Active Harinder Hernandez DO Active LEVAQUIN 500 MG ORAL TABLET Take 1 tab po daily x 8 days LEVOFLOXACIN 90538406922 No Longer Active Harinder Hernandez DO Active VENTOLIN HFA 108 (90 Base) MCG/ACT INHALATION AEROSOL SOLUTION 2 -4 puffs four times a day PRN ALBUTEROL SULFATE 41576491746 No Longer Active Jeri Sosa LPN Active ACEBUTOLOL HCL 200 MG ORAL CAPSULE 1 cap in the morning and 2 caps in the evening ACEBUTOLOL HCL 73324344371 No Longer Active Harindre Hernandez DO Active CEFDINIR 300 MG ORAL CAPSULE take 1 cap po bid x 10 days CEFDINIR 86938997944 No Longer Active Harinder Hernandez DO Active LOVASTATIN 40 MG ORAL TABLET 1 pill by mouth nightly for cholesterol LOVASTATIN 57658774586 No Longer Active Nettie Newberry APRN Active NITROSTAT 0.4 MG SUBLINGUAL TABLET SUBLINGUAL 1 tab under tongueas needed for chest pain ( may take 3 total, 5 min apart, then call 911) NITROGLYCERIN 50153917676 No Longer Active Nettie Newberry APRN Active POTASSIUM CHLORIDE ER 10 MEQ ORAL CAPSULE EXTENDED RELEASE 1 capsule by mouth daily POTASSIUM CHLORIDE 18212967018 No Longer Active Nettie Newberry APRN Active TESSALON PERLES 100 MG ORAL CAPSULE 1 to 2 tablets by mouth 3 times daily as needed for cough BENZONATATE 12147726794 No Longer Active Nettie Newberry APRN Active PREDNISONE 20 MG ORAL TABLET 2 po qd x 5 days PREDNISONE 48395435008 No Longer Active Jae Morgan MD Active AZITHROMYCIN 250 MG ORAL TABLET 2 po qd x 1 day, then 1 po qd x 4 days 12/30 AZITHROMYCIN 92947895791 No Longer Active Jae Morgan MD Active PREDNISONE 20 MG ORAL TABLET 1 tab twice daily for 3 day, then one daily for three days PREDNISONE 14216790358 No Longer Active Jae Morgan MD Active SINGULAIR 10 MG ORAL TABLET 1 pill by mouth every evening for breathing. 2014 MONTELUKAST SODIUM 42314915260 Active Meenu Villarrealnader JOELN Active TYLENOL 325 MG ORAL TABLET 3 by mouth q4h as needed ACETAMINOPHEN 87111370749 Active Harinder Hernandez DO Active POTASSIUM CHLORIDE ER 10 MEQ ORAL TABLET EXTENDED RELEASE take 1 tab po daily POTASSIUM CHLORIDE 35495298401 No Longer Active Harinder Hernandez DO Active PREDNISONE 20 MG ORAL TABLET 1 TID x 2 days, then 1 BID x 3 days, then 1 Daily x 3 days, then stop PREDNISONE 92491066081 No Longer Active Jillina Frazell EXTERNAL RELATIONS DIRECTOR Active LEVAQUIN 500 MG ORAL TABLET 1 tablet by mouth daily LEVOFLOXACIN 03371161574 No Longer Active Jillina Frazell EXTERNAL RELATIONS DIRECTOR Active NEURONTIN 300 MG ORAL CAPSULE 1 cap by mouth three times daily for restless leg GABAPENTIN 89124482852 No Longer Active Harinder Hernandez DO Active BENZONATATE 100 MG ORAL CAPSULE 1 cap po TID PRN BENZONATATE 24618251482 No Longer Active Harinder Hernandez DO Active MONTELUKAST SODIUM 10 MG ORAL TABLET 1 tab po in the evening 2014 MONTELUKAST SODIUM 32723752204 No Longer Active Harinder Hernandez DO Active MUPIROCIN 2 % EXTERNAL OINTMENT apply to affected area BID x 14 days MUPIROCIN 30668594873 No Longer Active Harinder Hernandez DO Active TYLENOL EXTRA STRENGTH 500 MG ORAL TABLET as needed ACETAMINOPHEN 26927430292 No Longer Active Harinder Hernandez DO Active PREDNISONE 10 MG ORAL TABLET 1 tab po daily PREDNISONE 92344483524 No Longer Active Harinder Hernandez DO Active PREDNISONE 20 MG ORAL TABLET 2 tabs daily for 4 days, 1 tab daily for 4 days, 1/2 tab daily for 4 days PREDNISONE 94472652446 No Longer Active Harinder Hernandez DO Active AZITHROMYCIN 250 MG ORAL TABLET 2 po qd x 1 day, then 1 po qd x 4 days 04/06 AZITHROMYCIN 55043717462 No Longer Active Harinder Hernandez DO Active PREDNISONE 20 MG ORAL TABLET 3 tabs today, then 1 tab twice daily for 3 day, then one daily for three days PREDNISONE 71417140140 No Longer Active Harinder Hernandez DO Active NIFEDIAC CC 30 MG ORAL TABLET EXTENDED RELEASE 24 HOUR 1 tablet daily for raynaud's syndrome NIFEDIPINE 42602810746 No Longer Active Tawnya Pardo MA Active AMBIEN 10 MG ORAL TABLET 1/2 tab by mouth at bedtime as needed for sleep 2013 ZOLPIDEM TARTRATE 84296472538 Active Meenu Alejo LPN Active CLONAZEPAM 1 MG ORAL TABLET 1 tablet at bedtime for insomnia and restless legs CLONAZEPAM 66322225402 Active Harinder Hernandez DO Active CLONAZEPAM 0.5 MG ORAL TABLET 1 tab po daily CLONAZEPAM 83925030511 No Longer Active Harinder Hernandez DO Active PREDNISONE 10 MG ORAL TABLET 1 tablet daily for COPD PREDNISONE 00599180217 Active Kortney Mccain Active PROAIR HFA 108 (90 Base) MCG/ACT INHALATION AEROSOL SOLUTION 2 puffs four times a day as needed ALBUTEROL SULFATE 81992485194 Active Harinder Hernandez DO Active FLOVENT HFA 110 MCG/ACT INHALATION AEROSOL 2 puffs inhaled b.i.d. FLUTICASONE PROPIONATE HFA 87550627332 Active Kortney Mccain Active ACIPHEX 20 MG ORAL TABLET DELAYED RELEASE 1 tab po daily RABEPRAZOLE SODIUM 74401484000 Active Kaylah Newberry Active CLONAZEPAM 0.5 MG ORAL TABLET 1 tab po daily CLONAZEPAM 0.5 MG ORAL TABLET 399570 CLONAZEPAM Inactive PREDNISONE 20 MG ORAL TABLET 3 tabs today, then 1 tab twice daily for 3 day, then one daily for three days PREDNISONE 20 MG ORAL TABLET 416010 PREDNISONE Inactive PREDNISONE 20 MG ORAL TABLET 2 tabs daily for 4 days, 1 tab daily for 4 days, 1/2 tab daily for 4 days PREDNISONE 20 MG ORAL TABLET 520873 PREDNISONE Inactive PREDNISONE 10 MG ORAL TABLET 1 tab po daily PREDNISONE 10 MG ORAL TABLET 626268 PREDNISONE Inactive TYLENOL EXTRA STRENGTH 500 MG ORAL TABLET as needed TYLENOL EXTRA STRENGTH 500 MG ORAL TABLET 180223 ACETAMINOPHEN Inactive MUPIROCIN 2 % EXTERNAL OINTMENT apply to affected area BID x 14 days MUPIROCIN 2 % EXTERNAL OINTMENT 438141 MUPIROCIN Inactive MONTELUKAST SODIUM 10 MG ORAL TABLET 1 tab po in the evening 2014 MONTELUKAST SODIUM 10 MG ORAL TABLET 814959 MONTELUKAST SODIUM Inactive BENZONATATE 100 MG ORAL CAPSULE 1 cap po TID PRN BENZONATATE 100 MG ORAL CAPSULE 353100 BENZONATATE Inactive NEURONTIN 300 MG ORAL CAPSULE 1 cap by mouth three times daily for restless leg NEURONTIN 300 MG ORAL CAPSULE 695404 GABAPENTIN Inactive LEVAQUIN 500 MG ORAL TABLET 1 tablet by mouth daily LEVAQUIN 500 MG ORAL TABLET 115586 LEVOFLOXACIN Inactive PREDNISONE 20 MG ORAL TABLET 1 TID x 2 days, then 1 BID x 3 days, then 1 Daily x 3 days, then stop PREDNISONE 20 MG ORAL TABLET 358811 PREDNISONE Inactive POTASSIUM CHLORIDE ER 10 MEQ ORAL TABLET EXTENDED RELEASE take 1 tab po daily POTASSIUM CHLORIDE ER 10 MEQ ORAL TABLET EXTENDED RELEASE POTASSIUM CHLORIDE Inactive PREDNISONE 20 MG ORAL TABLET 1 tab twice daily for 3 day, then one daily for three days PREDNISONE 20 MG ORAL TABLET 329995 PREDNISONE Inactive TESSALON PERLES 100 MG ORAL CAPSULE 1 to 2 tablets by mouth 3 times daily as needed for cough TESSALON PERLES 100 MG ORAL CAPSULE 146631 BENZONATATE Inactive POTASSIUM CHLORIDE ER 10 MEQ ORAL CAPSULE EXTENDED RELEASE 1 capsule by mouth daily POTASSIUM CHLORIDE ER 10 MEQ ORAL CAPSULE EXTENDED RELEASE POTASSIUM CHLORIDE Inactive NITROSTAT 0.4 MG SUBLINGUAL TABLET SUBLINGUAL 1 tab under tongueas needed for chest pain ( may take 3 total, 5 min apart, then call 911) NITROSTAT 0.4 MG SUBLINGUAL TABLET SUBLINGUAL 787922 NITROGLYCERIN Inactive LOVASTATIN 40 MG ORAL TABLET 1 pill by mouth nightly for cholesterol LOVASTATIN 40 MG ORAL TABLET 185132 LOVASTATIN Inactive CEFDINIR 300 MG ORAL CAPSULE take 1 cap po bid x 10 days CEFDINIR 300 MG ORAL CAPSULE 056131 CEFDINIR Inactive ACEBUTOLOL HCL 200 MG ORAL CAPSULE 1 cap in the morning and 2 caps in the evening ACEBUTOLOL HCL 200 MG ORAL CAPSULE 199907 ACEBUTOLOL HCL Inactive VENTOLIN HFA 108 (90 Base) MCG/ACT INHALATION AEROSOL SOLUTION 2 -4 puffs four times a day PRN VENTOLIN HFA 108 (90 Base) MCG/ ACT INHALATION AEROSOL SOLUTION ALBUTEROL SULFATE Inactive LEVAQUIN 500 MG ORAL TABLET Take 1 tab po daily x 8 days LEVAQUIN 500 MG ORAL TABLET 721487 LEVOFLOXACIN Inactive PREDNISONE 20 MG ORAL TABLET 2 tabs daily for 4 days, 1 tab daily for 4 days, 1/2 tab daily for 4 days PREDNISONE 20 MG ORAL TABLET 266706 PREDNISONE Inactive LOVASTATIN 40 MG ORAL TABLET Take 1 tab po every hs LOVASTATIN 40 MG ORAL TABLET 655611 LOVASTATIN Inactive DILAUDID 2 MG ORAL TABLET Take 1/2 tab po every 4 hours as needed for pain DILAUDID 2 MG ORAL TABLET 539973 HYDROMORPHONE HCL Inactive AMITRIPTYLINE HCL 25 MG ORAL TABLET 1 q hs prn AMITRIPTYLINE HCL 25 MG ORAL TABLET 107461 AMITRIPTYLINE HCL Inactive MECLIZINE HCL 25 MG ORAL TABLET 1 tablet three times daily for 3 days, then 1/ 2 tab three times daily for 3 days. MECLIZINE HCL 25 MG ORAL TABLET 687612 MECLIZINE HCL Inactive AMLODIPINE BESYLATE 5 MG ORAL TABLET Take 1 tab po daily AMLODIPINE BESYLATE 5 MG ORAL TABLET 933302 AMLODIPINE BESYLATE Inactive TOPIRAMATE 25 MG ORAL TABLET 1 tab po BID TOPIRAMATE 25 MG ORAL TABLET 177017 TOPIRAMATE Inactive PREDNISONE 20 MG ORAL TABLET 1 tablet twice daily for 2 days, then 1 tablet once daily for 2 days PREDNISONE 20 MG ORAL TABLET 746913 PREDNISONE Inactive PREDNISONE 20 MG ORAL TABLET 1 tab twice daily for 3 day, then one daily for three days PREDNISONE 20 MG ORAL TABLET 378663 PREDNISONE Inactive NIFEDIPINE ER 30 MG ORAL TABLET EXTENDED RELEASE 24 HOUR 1 daily NIFEDIPINE ER 30 MG ORAL TABLET EXTENDED RELEASE 24 HOUR NIFEDIPINE Inactive AMLODIPINE BESYLATE 5 MG ORAL TABLET 1 tablet by mouth daily 2016 AMLODIPINE BESYLATE 5 MG ORAL TABLET 892175 AMLODIPINE BESYLATE Inactive LASIX 20 MG ORAL TABLET 1 tablet by mouth every morning LASIX 20 MG ORAL TABLET 399443 FUROSEMIDE Inactive POTASSIUM CHLORIDE ER 10 MEQ ORAL CAPSULE EXTENDED RELEASE 1 capsule BID 2016 POTASSIUM CHLORIDE ER 10 MEQ ORAL CAPSULE EXTENDED RELEASE POTASSIUM CHLORIDE Inactive POTASSIUM CHLORIDE 20 MEQ ORAL PACKET 1 tab po q day POTASSIUM CHLORIDE 20 MEQ ORAL PACKET 7817743 POTASSIUM CHLORIDE Inactive AZITHROMYCIN 250 MG ORAL TABLET 2 po qd x 1 day, then 1 po qd x 4 days 04/06 AZITHROMYCIN 250 MG ORAL TABLET 776170 AZITHROMYCIN Inactive AZITHROMYCIN 250 MG ORAL TABLET 2 po qd x 1 day, then 1 po qd x 4 days 12/30 AZITHROMYCIN 250 MG ORAL TABLET 769206 AZITHROMYCIN Inactive PREDNISONE 20 MG ORAL TABLET 2 po qd x 5 days PREDNISONE 20 MG ORAL TABLET 523413 PREDNISONE Inactive Vital Signs Date Name Value [...] Panel - Chemistry sodium, serum 140 mmol/L 163-372 5815/07/13 potassium, serum 3.2 mmol/L 3.5-5.2 chloride, serum 103 mmol/L 98-107 carbon dioxide, venous blood 26.9 mmol/L 21.0-32.0 blood glucose 93 mg/dL 65-110 calcium, serum 9.2 mg/dL 8.5-10.1 urea nitrogen, blood 13 mg/dL 7-18 creatinine, serum 0.84 mg/dL 0.60-1.30 sodium, serum 140 mmol/L 693-010 3004/08/21 potassium, serum 3.8 mmol/L 3.5-5.2 chloride, serum [...] ... - Chemistry sodium, serum 141 mmol/L 690-276 9585/08/07 carbon dioxide, venous blood 34.0 mmol/L 21.0-32.0 [...] 1.40 mg/dL 0.00-1.00 cholesterol, serum 192 mg/dL 443-523 8896/10/19 triglyceride, serum, fasting 71 mg/dL 30-200 HDL cholesterol, serum 72 mg/dL 32-60 LDL cholesterol, serum 106 mg/dL 0-130 Lab Report: THEOPHYLLINE - Toxicology theophylline level, serum 3.1 ug/mL 10.0-20.0 Encounters Code Encounter Date Provider Facility CPT-42841 Level 3 Est. Patient 15:14:45 RELIEF OPERATOR Harinder Cr [facility] CPT-61942 Level 4 Est. Patient 14:45:25 CDT [facility] CPT-91180 Level 4 Est. Patient 09:15:13 CDT [facility] CPT-93731 Level 3 Est. Patient 11:51:58 CDT Harinder Hernandez [facility] CPT-52918 Level 3 Est. Patient 11:30:05 CDT Harinder Hernandez [facility] CPT-52345 Level 4 Est. Patient 10:19:23 CDT Harinder Hernandez [facility] CPT-96944 Level 3 Est. Patient 09:58:58 CDT Harinder Hernandez [facility] CPT-88740 Level 3 Est. Patient 12:37:21 CDT Harinder Cr [facility] CPT-43389 Level 3 Est. Patient 18:37:17 CDT Harinder Hernandez [facility] CPT-18500 Level 4 Est. Patient 11:15:54 CDT Nettie Newberry APRN [facility] CPT-54344 Level 3 Est. Patient 16:42:24 CDT Harinder Cr [facility] CPT-87208 Level 3 Est. Patient 15:03:36 CDT Harinder rC [facility] CPT-76847 Level 3 Est. Patient 15:03:20 CDT Harinder Hernandez [facility] CPT-10789 Level 3 Est. Patient 12:14:34 CDT Harinder Hernandez [facility] CPT-14634 Level 3 Est. Patient 13:47:15 CDT Harinder Hernandez [facility] CPT-19841 Level 3 Est. Patient 14:08:24 CDT Harinder Hernandez [facility] CPT-32656 Level 3 Est. Patient 10:07:15 CDT Harinder Cr [facility] CPT-18873 Level 3 Est. Patient 10:06:59 CDT Harinder Cr [facility] CPT-77000 Level 3 Est. Patient 15:53:29 CDT Jae Morgan MD [facility] CPT-51110 Level 3 Est. Patient 17:19:04 CDT Harinder Hernandez [facility] CPT-94036 Level 3 Est. Patient 11:13:01 CDT Harinder Hernandez [facility] CPT-31251 Level 3 Est. Patient 09:03:58 CDT Harinder Hernandez [facility] CPT-96592 Level 3 Est. Patient 14:46:45 RELIEF OPERATOR Harinder Hernandez [facility] CPT-04825 Level 3 Est. Patient 09:35:49 RELIEF OPERATOR Harinder Hernandez [facility] CPT-36019 Level 3 Est. Patient 09:29:37 RELIEF OPERATOR Harinder Hernandez [facility] CPT-56067 Level 3 Est. Patient 15:51:07 CDT Harinder Hernandez [facility] CPT-77359 Level 3 Est. Patient 18:13:13 CDT Harinder Hernandez [facility] CPT-79376 Level 3 Est. Patient 10:44:19 CDT Harinder Cr [facility] CPT-55696 Level 4 Est. Patient 10:07:19 RELIEF OPERATOR Harinder Hernandez [facility] CPT-50438 Level 3 Est. Patient 15:59:32 RELIEF OPERATOR Harinder [facility] Procedures Code Procedure Name Date Entry Date Standard Description CPT-86171 Abd compl w upright - XRAY USE ONLY 14:48:09 CDT 02/18 CPT-90767 Port a cath flush 13:46:05 CDT CPT-72352 Hip, complete, 2-3 views - XRAY USE ONLY 10:28:40 CDT CPT-45288 BMP - LAB USE ONLY 16:45:09 RELIEF OPERATOR CPT-85758 Port a cath flush 12:00:13 RELIEF OPERATOR CPT-TCMM Transitional Care Mgmt-Moderate 11:20:16 RELIEF OPERATOR CPT-46983 First Vx - Ix admin for Medicare patients 17:35:15 CDT CPT-03003 Fluzone Preservative Free Intramuscular Suspension 17:35 :15 CDT CPT-98982 Microalbumin - LAB USE ONLY 11:52:05 CDT CPT-TCMM Transitional Care Mgmt-Moderate 11:33:57 CDT CPT-48816 No Charge Offi Visit 14:11:29 CDT CPT-18742 Magnesium - LAB USE ONLY 10:45:44 CDT CPT-73222 Lipid - LAB USE ONLY 10:45:44 CDT CPT-23583 CBC - LAB USE ONLY 10:45:44 CDT CPT-47147 Venipuncture Draw Fee 10:45:43 CDT CPT-83594 Venipuncture Draw Fee 18:21:27 CDT CPT-JTINJ Asp/Joint Injection 18:38:04 CDT CPT-92485 Immunization Each Additional Inj 17:38:04 CDT CPT-14992 Immunization Single Admin 17:38:04 CDT CPT-60048 Prevnar 13 17:38:04 CDT CPT-23909 Fluzone Quadrivalent preservative free (>=3yrs.) 17:38: 04 CDT CPT-33126 No Charge Offi Visit 11:14:03 CDT CPT-60604 Chest 2V Frontal and Lat 14:00:18 CDT CPT-OV Office Visit 16:10:28 CDT CPT-JTINJ Asp/Joint Injection 09:03:57 CDT CPT-Cryo Cryotherapy 09:35:49 RELIEF OPERATOR CPT-JTINJ Asp/Joint Injection 09:34:45 RELIEF OPERATOR CPT-J2930 Solu Medrol 125 mg (Methyl Prednisolone Sodium Succinate) 20:37:27 CDT CPT-28679 Abx/Therapy Injection 20:37:27 CDT CPT-37501 Port a cath flush 08:15:51 CDT CPT-12471 Port a cath flush 09:54:16 CDT CPT-19230 Port a cath flush 09:38:02 CDT CPT-27027 Port a cath flush 11:00:27 RELIEF OPERATOR
--- OUTSIDE RECORDS SUMMARY | 2017-12-29 03:19 | XMS REPORT | Clinical Summary ---
Author Author Admin, QIE Organization [facility] [employer] Address Unknown Phone Unavailable Allergies, Adverse Reactions, [...] Insomnia , unspecified Raynaud's syndrome 443.0 Active Hairnder Hernandez DO Raynaud's syndrome Sacroiliitis, right 720.2 [...] pneumoniae ( Pneumococcus) V03.82 Resolved Harinder W Dvaid DO Need for prophylactic vaccination against Streptococcus [...] Hernandez Needs vaccination for influenza ICD-V04.81 Inactive Haridner Hernandez DO Need for prophylactic vaccination against streptococcus pneumoniae ( Pneumococcus) ICD-V03.82 Inactive Harinder Hernandez Greater trochanteric bursitis, left ICD-726.5 Inactive Harinder Hernandez DO Medication List Medication Instructions Start Date Stop Date Generic Name NDC Status Provider Patient Instruction ALBUTEROL SULFATE 0.083 % NEBU SOLN 1 vial neb q 4hrs for severe asthma. imperative to have this agent ALBUTEROL SULFATE 66087576814 Active Harinder Hernandez DO Active NIFEDIAC CC 30 MG [id number] 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 NIFEDIPINE 24380242466 Active Harinder Hernandez DO Active AMLODIPINE BESYLATE 5 MG TABS 1 tablet by mouth daily AMLODIPINE BESYLATE 60632672268 No Longer Active Harinder Hernandez DO Active TOPAMAX 25 MG ORAL TABS 1 tab po BID TOPIRAMATE 27053904163 Active Kortney Mccain Active FLUTICASONE PROPIONATE 50 MCG/ACT SUSP 2 sprays per nostril daily PRN Allergies FLUTICASONE PROPIONATE 94905213713 Active Kortney Mccain Active NIFEDIPINE ER 30 MG ORAL [id number] 1 daily NIFEDIPINE 16422567249 No Longer Active Harinder Hernandez DO Active POTASSIUM CHLORIDE 20 MEQ ORAL PACK Take 1 tablet by mouth daily POTASSIUM CHLORIDE 82155370585 Active Ciera Pimentel Active FLOVENT HFA 110 MCG/ACT AERO 2 puffs inhaled b.i.d. FLUTICASONE PROPIONATE HFA 03063559004 Active Harinder Hernandez DO Active POTASSIUM CHLORIDE CR 10 MEQ CPCR 1 capsule by mouth daily POTASSIUM CHLORIDE 18851900363 Active Harinder Hernandez DO Active EPIPEN 2-BRUNA 0.3 MG/0.3ML INJ SOAJ 1 INJ NEEDED EPINEPHRINE 88072676370 Active Harinder Hernandez DO Active PREDNISONE 20 MG TAB 1 tab twice daily for 3 day, then one daily for three days PREDNISONE 67802473060 No Longer Active Harinder Hernandez DO Active PREDNISONE 20 MG TAB 1 tablet twice daily for 2 days, then 1 tablet once daily for 2 days PREDNISONE 62706537278 No Longer Active Harinder Hernandez DO Active ASMANEX 120 METERED DOSES 220 MCG/INH INH AEPB 2 puffs orally twice daily MOMETASONE FUROATE 50408538597 Active Jeri Sosa RPT,RMA Active TOPIRAMATE 25 MG TABS 1 tab po BID TOPIRAMATE 49130495997 No Longer Active Nettie Newberry APRN Active AMLODIPINE BESYLATE 5 MG ORAL TABS Take 1 tab po daily AMLODIPINE BESYLATE 94289588178 No Longer Active Nettie Newberry APRN Active MECLIZINE HCL 25 MG TAB 1 tablet three times daily for 3 days, then 1/2 tab three times daily for 3 days. MECLIZINE HCL 31568096143 No Longer Active Nettie Newberry APRN Active AMITRIPTYLINE HCL 25 MG ORAL TABS 1 q hs prn AMITRIPTYLINE HCL 96937037807 No Longer Active Nettie Newberry APRN Active DILAUDID 2 MG ORAL TABS Take 1/2 tab po every 4 hours as needed for pain 2014 HYDROMORPHONE HCL 34573980767 No Longer Active Nettie Newberry APRN Active CLOPIDOGREL BISULFATE 75 MG ORAL TABS 1 tab by mouth once daily CLOPIDOGREL BISULFATE 94892460335 Active Harinder Hernandez DO Active ATORVASTATIN CALCIUM 10 MG ORAL TABS 1 at bedtime ATORVASTATIN CALCIUM 46593364653 Active Tawnya Pardo MA Active LOVASTATIN 40 MG ORAL TABS Take 1 tab po every hs LOVASTATIN 00547751768 No Longer Active Harinder Hernandez DO Active PREDNISONE 20 MG TAB 2 tabs daily for 4 days, 1 tab daily for 4 days, 1/2 tab daily for 4 days PREDNISONE 84999931663 No Longer Active Harinder Hernandez DO Active LEVAQUIN 500 MG ORAL TABS Take 1 tab po daily x 8 days LEVOFLOXACIN 93036872383 No Longer Active Harinder Hernandez DO Active VENTOLIN HFA 108 (90 BASE) MCG/ACT AERS 2 -4 puffs four times a day PRN 2013 ALBUTEROL SULFATE 12358622104 No Longer Active Jeri Sosa RPT,RMA Active ACEBUTOLOL HCL 200 MG CAPS 1 cap in the morning and 2 caps in the evening ACEBUTOLOL HCL 25234819856 No Longer Active Harinder Hernandez DO Active CEFDINIR 300 MG ORAL CAPS take 1 cap po bid x 10 days CEFDINIR 82096849832 No Longer Active Harinder Hernandez DO Active LOVASTATIN 40 MG TABS 1 pill by mouth nightly for cholesterol LOVASTATIN 32042869031 No Longer Active Nettie Newberry APRN Active NITROSTAT 0.4 MG SUBL 1 tab under tongueas needed for chest pain ( may take 3 total, 5 min apart, then call 911) NITROGLYCERIN 88087850409 No Longer Active Nettie Newberry APRN Active POTASSIUM CHLORIDE CR 10 MEQ CPCR 1 capsule by mouth daily 02/14 POTASSIUM CHLORIDE 81297878451 No Longer Active Nettie Newberry APRN Active TESSALON PERLES 100 MG CAP 1 to 2 tablets by mouth 3 times daily as needed for cough BENZONATATE 44386247525 No Longer Active Nettie Newberry APRN Active THEOPHYLLINE ER 200 MG ORAL [id number] Take 1 tab every 12 hours THEOPHYLLINE 93607805352 Active Tawnya Pardo MA Active PREDNISONE 20 MG TAB 2 po qd x 5 days PREDNISONE 02431271534 No Longer Active Jae Morgan MD Active AZITHROMYCIN 250 MG TABS 2 po qd x 1 day, then 1 po qd x 4 days AZITHROMYCIN 04002602486 No Longer Active Jae Morgan MD Active PREDNISONE 20 MG TAB 1 tab twice daily for 3 day, then one daily for three days PREDNISONE 58034989825 No Longer Active Jae Morgan MD Active SINGULAIR 10 MG TABS 1 pill by mouth every evening for breathing. MONTELUKAST SODIUM 81510039298 Active Tawnya Pardo MA Active TYLENOL 325 MG TAB 3 by mouth q4h as needed ACETAMINOPHEN 72752472120 Active Harinder Hernandez DO Active POTASSIUM CHLORIDE ER 10 MEQ CR-TABS take 1 tab po daily POTASSIUM CHLORIDE 04651205943 No Longer Active Harinder Hernandez DO Active PREDNISONE 20 MG TAB 1 TID x 2 days, then 1 BID x 3 days, then 1 Daily x 3 days, then stop PREDNISONE 06694325792 No Longer Active Jillina Frazell NEGATIVE STRIPPER Active LEVAQUIN 500 MG TAB 1 tablet by mouth daily LEVOFLOXACIN 54214872169 No Longer Active Jillina Frazell NEGATIVE STRIPPER Active NEURONTIN 300 MG CAP 1 cap by mouth three times daily for restless leg 06/22 GABAPENTIN 57337579259 No Longer Active Harinder Hernandez DO Active BENZONATATE 100 MG CAPS 1 cap po TID PRN BENZONATATE 78900722257 No Longer Active Harinder Hernandez DO Active MONTELUKAST SODIUM 10 MG TABS 1 tab po in the evening MONTELUKAST SODIUM 03446718628 No Longer Active Harinder Hernandez DO Active MUPIROCIN 2 % OINT apply to affected area BID x 14 days MUPIROCIN 98204796725 No Longer Active Harinder Hernandez DO Active TYLENOL EXTRA STRENGTH 500 MG TABS as needed ACETAMINOPHEN 26707252898 No Longer Active Harinder Hernandez DO Active PREDNISONE 10 MG TABS 1 tab po daily PREDNISONE 40476187130 No Longer Active Harinder Hernandez DO Active PREDNISONE 20 MG TAB 2 tabs daily for 4 days, 1 tab daily for 4 days, 1/2 tab daily for 4 days PREDNISONE 87157967556 No Longer Active Harinder Hernandez DO Active AZITHROMYCIN 250 MG TABS 2 po qd x 1 day, then 1 po qd x 4 days AZITHROMYCIN 16357931623 No Longer Active Harinder Hernandez DO Active PREDNISONE 20 MG TAB 3 tabs today, then 1 tab twice daily for 3 day, then one daily for three days PREDNISONE 66609911880 No Longer Active Harinder Hernandez DO Active NIFEDIAC CC 30 MG [id number] 1 tablet daily for raynaud's syndrome NIFEDIPINE 76902310629 No Longer Active Tawnya Pardo MA Active AMBIEN 10 MG TAB 1/2 tab by mouth at bedtime as needed for sleep ZOLPIDEM TARTRATE 33563801145 Active Kortney Mccain Active CLONAZEPAM 1 MG TABS 1 tablet at bedtime for insomnia and restless legs 09/14 CLONAZEPAM 36019389587 Active Harinder Hernandez DO Active CLONAZEPAM 0.5 MG TABS 1 tab po daily CLONAZEPAM 72728901097 No Longer Active Harinder Hernandez DO Active PREDNISONE 10 MG TAB 1 tablet daily for COPD PREDNISONE 14059318544 Active Ciera Pimentel Active PROAIR HFA 108 (90 BASE) MCG/ACT AERS 2 puffs four times a day as needed 2012 ALBUTEROL SULFATE 93376490980 Active Harinder Hernandez DO Active FLOVENT HFA 110 MCG/ACT AERO 2 puffs inhaled b.i.d. FLUTICASONE PROPIONATE HFA 68513412683 Active Kortney Mccain Active ACIPHEX 20 MG TBEC 1 tab po daily RABEPRAZOLE SODIUM 29674877329 Active Kaylah Newberry Active CLONAZEPAM 0.5 MG TABS 1 tab po daily CLONAZEPAM 0.5 MG TABS 140333 CLONAZEPAM Inactive PREDNISONE 20 MG TAB 3 tabs today, then 1 tab twice daily for 3 day, then one daily for three days PREDNISONE 20 MG TAB 935507 PREDNISONE Inactive PREDNISONE 20 MG TAB 2 tabs daily for 4 days, 1 tab daily for 4 days, 1/2 tab daily for 4 days PREDNISONE 20 MG TAB 148987 PREDNISONE Inactive PREDNISONE 10 MG TABS 1 tab po daily PREDNISONE 10 MG TABS 915835 PREDNISONE Inactive TYLENOL EXTRA STRENGTH 500 MG TABS as needed TYLENOL EXTRA STRENGTH 500 MG TABS 762055 ACETAMINOPHEN Inactive MUPIROCIN 2 % OINT apply to affected area BID x 14 days MUPIROCIN 2 % OINT 773739 MUPIROCIN Inactive MONTELUKAST SODIUM 10 MG TABS 1 tab po in the evening MONTELUKAST SODIUM 10 MG TABS 20010818 MONTELUKAST SODIUM Inactive BENZONATATE 100 MG CAPS 1 cap po TID PRN BENZONATATE 100 MG CAPS 006651 BENZONATATE Inactive NEURONTIN 300 MG CAP 1 cap by mouth three times daily for restless leg 06/22 NEURONTIN 300 MG CAP 814845 GABAPENTIN Inactive LEVAQUIN 500 MG TAB 1 tablet by mouth daily LEVAQUIN 500 MG TAB 362465 LEVOFLOXACIN Inactive PREDNISONE 20 MG TAB 1 TID x 2 days, then 1 BID x 3 days, then 1 Daily x 3 days, then stop PREDNISONE 20 MG TAB 735109 PREDNISONE Inactive POTASSIUM CHLORIDE ER 10 MEQ CR-TABS take 1 tab po daily POTASSIUM CHLORIDE ER 10 MEQ CR-TABS POTASSIUM CHLORIDE Inactive PREDNISONE 20 MG TAB 1 tab twice daily for 3 day, then one daily for three days PREDNISONE 20 MG TAB 696669 PREDNISONE Inactive TESSALON PERLES 100 MG CAP 1 to 2 tablets by mouth 3 times daily as needed for cough TESSALON PERLES 100 MG CAP 468663 BENZONATATE Inactive POTASSIUM CHLORIDE CR 10 MEQ CPCR 1 capsule by mouth daily 02/14 POTASSIUM CHLORIDE CR 10 MEQ CPCR POTASSIUM CHLORIDE Inactive NITROSTAT 0.4 MG SUBL 1 tab under tongueas needed for chest pain ( may take 3 total, 5 min apart, then call 911) NITROSTAT 0.4 MG SUBL 666624 NITROGLYCERIN Inactive LOVASTATIN 40 MG TABS 1 pill by mouth nightly for cholesterol LOVASTATIN 40 MG TABS 299082 LOVASTATIN Inactive CEFDINIR 300 MG ORAL CAPS take 1 cap po bid x 10 days CEFDINIR 300 MG ORAL CAPS 977645 CEFDINIR Inactive ACEBUTOLOL HCL 200 MG CAPS 1 cap in the morning and 2 caps in the evening ACEBUTOLOL HCL 200 MG CAPS 981648 ACEBUTOLOL HCL Inactive VENTOLIN HFA 108 (90 BASE) MCG/ACT AERS 2 -4 puffs four times a day PRN 2013 VENTOLIN HFA 108 (90 BASE) MCG/ACT AERS ALBUTEROL SULFATE Inactive LEVAQUIN 500 MG ORAL TABS Take 1 tab po daily x 8 days LEVAQUIN 500 MG ORAL TABS 084994 LEVOFLOXACIN Inactive PREDNISONE 20 MG TAB 2 tabs daily for 4 days, 1 tab daily for 4 days, 1/2 tab daily for 4 days PREDNISONE 20 MG TAB 429790 PREDNISONE Inactive LOVASTATIN 40 MG ORAL TABS Take 1 tab po every hs LOVASTATIN 40 MG ORAL TABS 559578 LOVASTATIN Inactive DILAUDID 2 MG ORAL TABS Take 1/2 tab po every 4 hours as needed for pain 2014 DILAUDID 2 MG ORAL TABS 198235 HYDROMORPHONE HCL Inactive AMITRIPTYLINE HCL 25 MG ORAL TABS 1 q hs prn AMITRIPTYLINE HCL 25 MG ORAL TABS 991151 AMITRIPTYLINE HCL Inactive MECLIZINE HCL 25 MG TAB 1 tablet three times daily for 3 days, then 1/2 tab three times daily for 3 days. MECLIZINE HCL 25 MG TAB 065121 MECLIZINE HCL Inactive AMLODIPINE BESYLATE 5 MG ORAL TABS Take 1 tab po daily AMLODIPINE BESYLATE 5 MG ORAL TABS 430274 AMLODIPINE BESYLATE Inactive TOPIRAMATE 25 MG TABS 1 tab po BID TOPIRAMATE 25 MG TABS 954166 TOPIRAMATE Inactive PREDNISONE 20 MG TAB 1 tablet twice daily for 2 days, then 1 tablet once daily for 2 days PREDNISONE 20 MG TAB 873425 PREDNISONE Inactive PREDNISONE 20 MG TAB 1 tab twice daily for 3 day, then one daily for three days PREDNISONE 20 MG TAB 728573 PREDNISONE Inactive NIFEDIPINE ER 30 MG ORAL [id number] 1 daily NIFEDIPINE ER 30 MG ORAL [id number] NIFEDIPINE Inactive AMLODIPINE BESYLATE 5 MG TABS 1 tablet by mouth daily AMLODIPINE BESYLATE 5 MG TABS 172462 AMLODIPINE BESYLATE Inactive AZITHROMYCIN 250 MG TABS 2 po qd x 1 day, then 1 po qd x 4 days AZITHROMYCIN 250 MG TABS 1323632 AZITHROMYCIN Inactive AZITHROMYCIN 250 MG TABS 2 po qd x 1 day, then 1 po qd x 4 days AZITHROMYCIN 250 MG TABS 9718429 AZITHROMYCIN Inactive PREDNISONE 20 MG TAB 2 po qd x 5 days PREDNISONE 20 MG TAB 373128 PREDNISONE Inactive Vital Signs Date Name Value [...] Panel - Chemistry sodium, serum 137 mmol/L 700-088 3942/01/03 potassium, serum 3.4 mmol/L 3.5-5.2 chloride, serum [...] Magnesium - Chemistry cholesterol, serum 180 mg/dL 042-591 5033/08/08 triglyceride, serum, fasting 92 mg/dL 30-200 HDL cholesterol, serum 66 mg/dL 32-96 LDL cholesterol, serum 96 mg/dL 0-130 sodium, serum 142 mmol/L 493-585 2196/08/08 carbon dioxide, venous blood 27.4 mmol/L 21.0-32.0 [...] 10.0-20.0 Encounters Code Encounter Date Provider Facility CPT-40771 Level 4 Est. Patient 10:19:23 CDT Harinder Cr [facility] CPT-96654 Level 3 Est. Patient 09:58:58 CDT Harinder Cr [facility] CPT-16120 Level 3 Est. Patient 12:37:21 CDT Harinder [facility] CPT-02713 Level 3 Est. Patient 18:37:17 CDT Harinder [facility] CPT-57033 Level 4 Est. Patient 11:15:54 CDT Nettie Newberry [facility] CPT-56520 Level 3 Est. Patient 16:42:24 CDT Harinder [facility] CPT-79326 Level 3 Est. Patient 15:03:36 CDT [facility]inder [facility] CPT-00552 Level 3 Est. Patient 15:03:20 CDT [facility]inder [facility] CPT-73618 Level 3 Est. Patient 12:14:34 CDT Harinder Hernandez [facility] CPT-10584 Level 3 Est. Patient 13:47:15 CDT Harinder Hernandez [facility] CPT-35151 Level 3 Est. Patient 14:08:24 CDT Harinder Hernandez [facility] CPT-81652 Level 3 Est. Patient 10:07:15 CDT Harinder Hernandez [facility] CPT-89462 Level 3 Est. Patient 10:06:59 CDT Harinder Hernandez [facility] CPT-34781 Level 3 Est. Patient 15:53:29 CDT Jae Morgan [facility] CPT-13233 Level 3 Est. Patient 17:19:04 CDT Harinder Hernandez [facility] CPT-15409 Level 3 Est. Patient 11:13:01 CDT Harinder Hernandez [facility] CPT-45987 Level 3 Est. Patient 09:03:58 CDT Harinder [facility] CPT-28928 Level 3 Est. Patient 14:46:45 DEPUTY ATTORNEY GENERAL Harinder Hernandez [facility] CPT-47548 Level 3 Est. Patient 09:35:49 DEPUTY ATTORNEY GENERAL Harinder Hernandez [facility] CPT-31584 Level 3 Est. Patient 09:29:37 DEPUTY ATTORNEY GENERAL Harinder Hernandez [facility] CPT-79534 Level 3 Est. Patient 15:51:07 CDT Harinder Hernandez [facility] CPT-75127 Level 3 Est. Patient 18:13:13 CDT Harinder Shaye Hernandez [facility] CPT-90885 Level 3 Est. Patient 10:44:19 CDT Harinder Cr [facility] CPT-59008 Level 4 Est. Patient 10:07:19 DEPUTY ATTORNEY GENERAL Harinder Cr [facility] CPT-13023 Level 3 Est. Patient 15:59:32 DEPUTY ATTORNEY GENERAL Harinder Cr [facility] Procedures Code Procedure Name Date Entry Date Standard Description CPT-00124 Hip, complete, 2-3 views - XRAY USE ONLY 10:28:40 CDT CPT-61505 BMP - LAB USE ONLY 16:45:09 DEPUTY ATTORNEY GENERAL CPT-57502 Port a cath flush 12:00:13 DEPUTY ATTORNEY GENERAL CPT-TCMM Transitional Care Mgmt-Moderate 11:20:16 DEPUTY ATTORNEY GENERAL CPT-62756 First Vx - Ix admin for Medicare patients 17:35:15 CDT CPT-66660 Fluzone Preservative Free Intramuscular Suspension 17:35 :15 CDT CPT-00629 Microalbumin - LAB USE ONLY 11:52:05 CDT CPT-TCMM Transitional Care Mgmt-Moderate 11:33:57 CDT CPT-46612 No Charge Offi Visit 14:11:29 CDT CPT-97321 Magnesium - LAB USE ONLY 10:45:44 CDT CPT-18013 Lipid - LAB USE ONLY 10:45:44 CDT CPT-06459 CBC - LAB USE ONLY 10:45:44 CDT CPT-09928 Venipuncture Draw Fee 10:45:43 CDT CPT-48820 Venipuncture Draw Fee 18:21:27 CDT CPT-JTINJ Asp/Joint Injection 18:38:04 CDT CPT-65463 Immunization Each Additional Inj 17:38:04 CDT CPT-66728 Immunization Single Admin 17:38:04 CDT CPT-31939 Prevnar 13 17:38:04 CDT CPT-20311 Fluzone Quadrivalent preservative free (>=3yrs.) 17:38: 04 CDT CPT-12628 No Charge Offi Visit 11:14:03 CDT CPT-91017 Chest 2V Frontal and Lat 14:00:18 CDT CPT-OV Office Visit 16:10:28 CDT CPT-JTINJ Asp/Joint Injection 09:03:57 CDT CPT-Cryo Cryotherapy 09:35:49 DEPUTY ATTORNEY GENERAL CPT-JTINJ Asp/Joint Injection 09:34:45 DEPUTY ATTORNEY GENERAL CPT-J2930 Solu Medrol 125 mg (Methyl Prednisolone Sodium Succinate) 20:37:27 CDT CPT-09941 Abx/Therapy Injection 20:37:27 CDT CPT-73190 Port a cath flush 08:15:51 CDT CPT-09496 Port a cath flush 09:54:16 CDT CPT-70010 Port a cath flush 09:38:02 CDT CPT-88751 Port a cath flush 11:00:27 DEPUTY ATTORNEY GENERAL
--- OUTSIDE RECORDS SUMMARY | 2017-12-29 03:21 | XMS REPORT | Clinical Summary ---
Author Author Admin, QIE Organization [facility] Address Unknown Phone Unavailable Allergies, Adverse [...] TABLET 1 tablet by mouth daily SPIRONOLACTONE [id number] No Longer Active Jeri Nieto Active PREDNISONE 20 MG ORAL TABLET 2 tablets by mouth today, then 1 tablet by mouth days 2-3 PREDNISONE 94644243406 No Longer Active Jeri Nieto Active NITROSTAT 0.4 MG SUBLINGUAL TABLET SUBLINGUAL 1 tab SL q5min PRN chest pain NITROGLYCERIN 08205609499 Active Meenu Alejo LPN Active THEOPHYLLINE ER 300 MG ORAL TABLET EXTENDED RELEASE 12 HOUR 1 po BID THEOPHYLLINE 27916084062 Active Kortney Mccain Active POTASSIUM CHLORIDE ER 20 MEQ ORAL TABLET EXTENDED RELEASE 1 po q day POTASSIUM CHLORIDE 01189032044 Active Kortney Mccain Active POTASSIUM CHLORIDE 20 MEQ ORAL PACKET 1 tab po q day POTASSIUM CHLORIDE 70798887003 No Longer Active Kortney Mccain Active POTASSIUM CHLORIDE ER 10 MEQ ORAL CAPSULE EXTENDED RELEASE 1 capsule BID 2016 POTASSIUM CHLORIDE 34323618799 No Longer Active Kortney Mccain Active LASIX 20 MG ORAL TABLET 1 tablet by mouth every morning FUROSEMIDE 98623205954 No Longer Active Kortney Mccain Active FLUOXETINE HCL 10 MG ORAL CAPSULE 1 po qd for depression/anxiety FLUOXETINE HCL 73650039377 Active Meenu Alejo LPN Active VOLTAREN 1 % TRANSDERMAL GEL apply q 6-8 hour to left arm as needed for pain DICLOFENAC SODIUM 64096156709 Active Kortney Mccain Active ALBUTEROL SULFATE (2.5 MG/3ML) 0.083% INHALATION NEBULIZATION SOLUTION 1 vial neb q 4hrs for severe asthma. 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 NIFEDIPINE 83106712870 Active Kortney Mccain Active AMLODIPINE BESYLATE 5 MG ORAL TABLET 1 tablet by mouth daily 2016 AMLODIPINE BESYLATE 75380558590 No Longer Active Harinder Hernandez DO Active TOPAMAX 25 MG ORAL TABLET 1 tab po BID TOPIRAMATE 99063350037 Active Kortney Mccain Active FLUTICASONE PROPIONATE 50 MCG/ACT NASAL SUSPENSION 2 sprays per nostril daily PRN Allergies FLUTICASONE PROPIONATE 70671244363 Active Meenu Alejo LPN Active NIFEDIPINE ER 30 MG ORAL TABLET EXTENDED RELEASE 24 HOUR 1 daily NIFEDIPINE 12480410252 No Longer Active Harinder Hernandez DO Active FLOVENT HFA 110 MCG/ACT INHALATION AEROSOL 2 puffs inhaled b.i.d. FLUTICASONE PROPIONATE HFA 88118987042 Active Harinder Hernandez DO Active EPIPEN 2-BRUNA 0.3 MG/0.3ML INJECTION SOLUTION AUTO-INJECTOR 1 INJ NEEDED EPINEPHRINE 89932906772 Active Meenu Alejo LPN Active PREDNISONE 20 MG ORAL TABLET 1 tab twice daily for 3 day, then one daily for three days PREDNISONE 43553325337 No Longer Active Harinder Hernandez DO Active PREDNISONE 20 MG ORAL TABLET 1 tablet twice daily for 2 days, then 1 tablet once daily for 2 days PREDNISONE 12563016213 No Longer Active Harinder Hernandez DO Active ASMANEX 120 METERED DOSES 220 MCG/INH INHALATION AEROSOL POWDER BREATH ACTIVATED 2 puffs orally twice daily MOMETASONE FUROATE 38404165504 Active Jeri Sosa LPN Active TOPIRAMATE 25 MG ORAL TABLET 1 tab po BID TOPIRAMATE 34338378752 No Longer Active Nettie Newberry APRN Active AMLODIPINE BESYLATE 5 MG ORAL TABLET Take 1 tab po daily AMLODIPINE BESYLATE 87637798987 No Longer Active Nettie Newberry APRN Active MECLIZINE HCL 25 MG ORAL TABLET 1 tablet three times daily for 3 days, then 1/ 2 tab three times daily for 3 days. MECLIZINE HCL 45561761569 No Longer Active Nettie Newberry APRN Active AMITRIPTYLINE HCL 25 MG ORAL TABLET 1 q hs prn AMITRIPTYLINE HCL 20089697567 No Longer Active Nettie Newberry APRN Active DILAUDID 2 MG ORAL TABLET Take 1/2 tab po every 4 hours as needed for pain HYDROMORPHONE HCL 44270536243 No Longer Active Nettie Newberry APRN Active CLOPIDOGREL BISULFATE 75 MG ORAL TABLET 1 tab by mouth once daily CLOPIDOGREL BISULFATE 92693886411 Active Meenu Aleoj LPN Active ATORVASTATIN CALCIUM 10 MG ORAL TABLET 1 at bedtime ATORVASTATIN CALCIUM 27182272397 Active Kortney Mccain Active LOVASTATIN 40 MG ORAL TABLET Take 1 tab po every hs LOVASTATIN 69717253261 No Longer Active Harinder Hernandez DO Active PREDNISONE 20 MG ORAL TABLET 2 tabs daily for 4 days, 1 tab daily for 4 days, 1/2 tab daily for 4 days PREDNISONE 73886225211 No Longer Active Harinder Hernandez DO Active LEVAQUIN 500 MG ORAL TABLET Take 1 tab po daily x 8 days LEVOFLOXACIN 69024777834 No Longer Active Harinder Hernandez DO Active VENTOLIN HFA 108 (90 Base) MCG/ACT INHALATION AEROSOL SOLUTION 2 -4 puffs four times a day PRN ALBUTEROL SULFATE 51628811905 No Longer Active Jeri Sosa LPN Active ACEBUTOLOL HCL 200 MG ORAL CAPSULE 1 cap in the morning and 2 caps in the evening ACEBUTOLOL HCL 35835403424 No Longer Active Harinder Hernandez DO Active CEFDINIR 300 MG ORAL CAPSULE take 1 cap po bid x 10 days CEFDINIR 75667246727 No Longer Active Harinder Hernandez DO Active LOVASTATIN 40 MG ORAL TABLET 1 pill by mouth nightly for cholesterol LOVASTATIN 08273785393 No Longer Active Nettie Newberry APRN Active NITROSTAT 0.4 MG SUBLINGUAL TABLET SUBLINGUAL 1 tab under tongueas needed for chest pain ( may take 3 total, 5 min apart, then call 911) NITROGLYCERIN 97382379408 No Longer Active Nettie Newberry APRN Active POTASSIUM CHLORIDE ER 10 MEQ ORAL CAPSULE EXTENDED RELEASE 1 capsule by mouth daily POTASSIUM CHLORIDE 48224459078 No Longer Active Nettie Newberry APRN Active TESSALON PERLES 100 MG ORAL CAPSULE 1 to 2 tablets by mouth 3 times daily as needed for cough BENZONATATE 34711334876 No Longer Active Nettie Newberry APRN Active PREDNISONE 20 MG ORAL TABLET 2 po qd x 5 days PREDNISONE 72808781041 No Longer Active Jae Morgan MD Active AZITHROMYCIN 250 MG ORAL TABLET 2 po qd x 1 day, then 1 po qd x 4 days 12/30 AZITHROMYCIN 39410043880 No Longer Active Jae Morgan MD Active PREDNISONE 20 MG ORAL TABLET 1 tab twice daily for 3 day, then one daily for three days PREDNISONE 62869917079 No Longer Active Jae Morgan MD Active SINGULAIR 10 MG ORAL TABLET 1 pill by mouth every evening for breathing. 2014 MONTELUKAST SODIUM 28988351187 Active Meenu Alejo LPN Active TYLENOL 325 MG ORAL TABLET 3 by mouth q4h as needed ACETAMINOPHEN 33786033308 Active Harinder Hernandez DO Active POTASSIUM CHLORIDE ER 10 MEQ ORAL TABLET EXTENDED RELEASE take 1 tab po daily POTASSIUM CHLORIDE 53937551537 No Longer Active Harinder Hernandez DO Active PREDNISONE 20 MG ORAL TABLET 1 TID x 2 days, then 1 BID x 3 days, then 1 Daily x 3 days, then stop PREDNISONE 35238291946 No Longer Active Jillina Frazellor MCCRAY Active LEVAQUIN 500 MG ORAL TABLET 1 tablet by mouth daily LEVOFLOXACIN 77943234460 No Longer Active 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 NEURONTIN 300 MG ORAL CAPSULE 1 cap by mouth three times daily for restless leg GABAPENTIN 06655084892 No Longer Active Harinder Hernandez DO Active BENZONATATE 100 MG ORAL CAPSULE 1 cap po TID PRN BENZONATATE 00585895385 No Longer Active Harinder Hernandez DO Active MONTELUKAST SODIUM 10 MG ORAL TABLET 1 tab po in the evening 2014 MONTELUKAST SODIUM 61296454916 No Longer Active Harinder Hernandez DO Active MUPIROCIN 2 % EXTERNAL OINTMENT apply to affected area BID x 14 days MUPIROCIN 09175045709 No Longer Active Harinder Hernandez DO Active TYLENOL EXTRA STRENGTH 500 MG ORAL TABLET as needed ACETAMINOPHEN 23607063403 No Longer Active Harinder Hernandez DO Active PREDNISONE 10 MG ORAL TABLET 1 tab po daily PREDNISONE 43247528887 No Longer Active Harinder Hernandez DO Active PREDNISONE 20 MG ORAL TABLET 2 tabs daily for 4 days, 1 tab daily for 4 days, 1/2 tab daily for 4 days PREDNISONE 69262072157 No Longer Active Harinder Hernandez DO Active AZITHROMYCIN 250 MG ORAL TABLET 2 po qd x 1 day, then 1 po qd x 4 days 04/06 AZITHROMYCIN 37856208553 No Longer Active Harinder Hernandez DO Active PREDNISONE 20 MG ORAL TABLET 3 tabs today, then 1 tab twice daily for 3 day, then one daily for three days PREDNISONE 61316835449 No Longer Active Harinder Hernandez DO Active NIFEDIAC CC 30 MG ORAL TABLET EXTENDED RELEASE 24 HOUR 1 tablet daily for raynaud's syndrome NIFEDIPINE 50205422816 No Longer Active Tawnya Pardo MA Active AMBIEN 10 MG ORAL TABLET 1/2 tab by mouth at bedtime as needed for sleep 2013 ZOLPIDEM TARTRATE 67185317931 Active Meenu Alejo LPN Active CLONAZEPAM 1 MG ORAL TABLET 1 tablet at bedtime for insomnia and restless legs CLONAZEPAM 13056742111 Active Meenu Alejo LPN Active CLONAZEPAM 0.5 MG ORAL TABLET 1 tab po daily CLONAZEPAM 40467842567 No Longer Active Harinder Hernandez DO Active PREDNISONE 10 MG ORAL TABLET 1 tablet daily for COPD PREDNISONE 61365593032 Active Kortney Mccain Active PROAIR HFA 108 (90 Base) MCG/ACT INHALATION AEROSOL SOLUTION 2 puffs four times a day as needed ALBUTEROL SULFATE 33530330606 Active Harinder Hernandez DO Active FLOVENT HFA 110 MCG/ACT INHALATION AEROSOL 2 puffs inhaled b.i.d. FLUTICASONE PROPIONATE HFA 13857437634 Active Kortney Mccain Active ACIPHEX 20 MG ORAL TABLET DELAYED RELEASE 1 tab po daily RABEPRAZOLE SODIUM 40791228046 Active Meenu Alejo LPN Active CLONAZEPAM 0.5 MG ORAL TABLET 1 tab po daily CLONAZEPAM 0.5 MG ORAL TABLET 746262 CLONAZEPAM Inactive PREDNISONE 20 MG ORAL TABLET 3 tabs today, then 1 tab twice daily for 3 day, then one daily for three days PREDNISONE 20 MG ORAL TABLET 233596 PREDNISONE Inactive PREDNISONE 20 MG ORAL TABLET 2 tabs daily for 4 days, 1 tab daily for 4 days, 1/2 tab daily for 4 days PREDNISONE 20 MG ORAL TABLET 425400 PREDNISONE Inactive PREDNISONE 10 MG ORAL TABLET 1 tab po daily PREDNISONE 10 MG ORAL TABLET 703102 PREDNISONE Inactive TYLENOL EXTRA STRENGTH 500 MG ORAL TABLET as needed TYLENOL EXTRA STRENGTH 500 MG ORAL TABLET 825023 ACETAMINOPHEN Inactive MUPIROCIN 2 % EXTERNAL OINTMENT apply to affected area BID x 14 days MUPIROCIN 2 % EXTERNAL OINTMENT 011901 MUPIROCIN Inactive MONTELUKAST SODIUM 10 MG ORAL TABLET 1 tab po in the evening 2014 MONTELUKAST SODIUM 10 MG ORAL TABLET 854289 MONTELUKAST SODIUM Inactive BENZONATATE 100 MG ORAL CAPSULE 1 cap po TID PRN BENZONATATE 100 MG ORAL CAPSULE 835664 BENZONATATE Inactive NEURONTIN 300 MG ORAL CAPSULE 1 cap by mouth three times daily for restless leg NEURONTIN 300 MG ORAL CAPSULE 652175 GABAPENTIN Inactive LEVAQUIN 500 MG ORAL TABLET 1 tablet by mouth daily LEVAQUIN 500 MG ORAL TABLET 049632 LEVOFLOXACIN Inactive PREDNISONE 20 MG ORAL TABLET 1 TID x 2 days, then 1 BID x 3 days, then 1 Daily x 3 days, then stop PREDNISONE 20 MG ORAL TABLET 315259 PREDNISONE Inactive POTASSIUM CHLORIDE ER 10 MEQ ORAL TABLET EXTENDED RELEASE take 1 tab po daily POTASSIUM CHLORIDE ER 10 MEQ ORAL TABLET EXTENDED RELEASE POTASSIUM CHLORIDE Inactive PREDNISONE 20 MG ORAL TABLET 1 tab twice daily for 3 day, then one daily for three days PREDNISONE 20 MG ORAL TABLET 895561 PREDNISONE Inactive TESSALON PERLES 100 MG ORAL CAPSULE 1 to 2 tablets by mouth 3 times daily as needed for cough TESSALON PERLES 100 MG ORAL CAPSULE 221182 BENZONATATE Inactive POTASSIUM CHLORIDE ER 10 MEQ ORAL CAPSULE EXTENDED RELEASE 1 capsule by mouth daily POTASSIUM CHLORIDE ER 10 MEQ ORAL CAPSULE EXTENDED RELEASE POTASSIUM CHLORIDE Inactive NITROSTAT 0.4 MG SUBLINGUAL TABLET SUBLINGUAL 1 tab under tongueas needed for chest pain ( may take 3 total, 5 min apart, then call 911) NITROSTAT 0.4 MG SUBLINGUAL TABLET SUBLINGUAL 496067 NITROGLYCERIN Inactive LOVASTATIN 40 MG ORAL TABLET 1 pill by mouth nightly for cholesterol LOVASTATIN 40 MG ORAL TABLET 677443 LOVASTATIN Inactive CEFDINIR 300 MG ORAL CAPSULE take 1 cap po bid x 10 days CEFDINIR 300 MG ORAL CAPSULE 664607 CEFDINIR Inactive ACEBUTOLOL HCL 200 MG ORAL CAPSULE 1 cap in the morning and 2 caps in the evening ACEBUTOLOL HCL 200 MG ORAL CAPSULE 054706 ACEBUTOLOL HCL Inactive VENTOLIN HFA 108 (90 Base) MCG/ACT INHALATION AEROSOL SOLUTION 2 -4 puffs four times a day PRN VENTOLIN HFA 108 (90 Base) MCG/ ACT INHALATION AEROSOL SOLUTION ALBUTEROL SULFATE Inactive LEVAQUIN 500 MG ORAL TABLET Take 1 tab po daily x 8 days LEVAQUIN 500 MG ORAL TABLET 513697 LEVOFLOXACIN Inactive PREDNISONE 20 MG ORAL TABLET 2 tabs daily for 4 days, 1 tab daily for 4 days, 1/2 tab daily for 4 days PREDNISONE 20 MG ORAL TABLET 679138 PREDNISONE Inactive LOVASTATIN 40 MG ORAL TABLET Take 1 tab po every hs LOVASTATIN 40 MG ORAL TABLET 709400 LOVASTATIN Inactive DILAUDID 2 MG ORAL TABLET Take 1/2 tab po every 4 hours as needed for pain DILAUDID 2 MG ORAL TABLET 549699 HYDROMORPHONE HCL Inactive AMITRIPTYLINE HCL 25 MG ORAL TABLET 1 q hs prn AMITRIPTYLINE HCL 25 MG ORAL TABLET 361168 AMITRIPTYLINE HCL Inactive MECLIZINE HCL 25 MG ORAL TABLET 1 tablet three times daily for 3 days, then 1/ 2 tab three times daily for 3 days. MECLIZINE HCL 25 MG ORAL TABLET 302940 MECLIZINE HCL Inactive AMLODIPINE BESYLATE 5 MG ORAL TABLET Take 1 tab po daily AMLODIPINE BESYLATE 5 MG ORAL TABLET 556900 AMLODIPINE BESYLATE Inactive TOPIRAMATE 25 MG ORAL TABLET 1 tab po BID TOPIRAMATE 25 MG ORAL TABLET 226458 TOPIRAMATE Inactive PREDNISONE 20 MG ORAL TABLET 1 tablet twice daily for 2 days, then 1 tablet once daily for 2 days PREDNISONE 20 MG ORAL TABLET 641529 PREDNISONE Inactive PREDNISONE 20 MG ORAL TABLET 1 tab twice daily for 3 day, then one daily for three days PREDNISONE 20 MG ORAL TABLET 328655 PREDNISONE Inactive NIFEDIPINE ER 30 MG ORAL TABLET EXTENDED RELEASE 24 HOUR 1 daily NIFEDIPINE ER 30 MG ORAL TABLET EXTENDED RELEASE 24 HOUR NIFEDIPINE Inactive AMLODIPINE BESYLATE 5 MG ORAL TABLET 1 tablet by mouth daily 2016 AMLODIPINE BESYLATE 5 MG ORAL TABLET 618884 AMLODIPINE BESYLATE Inactive LASIX 20 MG ORAL TABLET 1 tablet by mouth every morning LASIX 20 MG ORAL TABLET 834786 FUROSEMIDE Inactive POTASSIUM CHLORIDE ER 10 MEQ ORAL CAPSULE EXTENDED RELEASE 1 capsule BID 2016 POTASSIUM CHLORIDE ER 10 MEQ ORAL CAPSULE EXTENDED RELEASE POTASSIUM CHLORIDE Inactive POTASSIUM CHLORIDE 20 MEQ ORAL PACKET 1 tab po q day POTASSIUM CHLORIDE 20 MEQ ORAL PACKET 3983861 POTASSIUM CHLORIDE Inactive PREDNISONE 20 MG ORAL TABLET 2 tablets by mouth today, then 1 tablet by mouth days 2-3 PREDNISONE 20 MG ORAL TABLET 153128 PREDNISONE Inactive SPIRONOLACTONE 25 MG ORAL TABLET 1 tablet by mouth daily SPIRONOLACTONE 25 MG ORAL TABLET 603421 SPIRONOLACTONE Inactive AZITHROMYCIN 250 MG ORAL TABLET 2 po qd x 1 day, then 1 po qd x 4 days 04/06 AZITHROMYCIN 250 MG ORAL TABLET 240811 AZITHROMYCIN Inactive AZITHROMYCIN 250 MG ORAL TABLET 2 po qd x 1 day, then 1 po qd x 4 days 12/30 AZITHROMYCIN 250 MG ORAL TABLET 757034 AZITHROMYCIN Inactive PREDNISONE 20 MG ORAL TABLET 2 po qd x 5 days PREDNISONE 20 MG ORAL TABLET 880411 PREDNISONE Inactive Vital Signs Date Name Value [...] Panel - Chemistry sodium, serum 140 mmol/L 359-562 5218/07/13 potassium, serum 3.2 mmol/L 3.5-5.2 chloride, serum 103 mmol/L 98-107 carbon dioxide, venous blood 26.9 mmol/L 21.0-32.0 blood glucose 93 mg/dL 65-110 calcium, serum 9.2 mg/dL 8.5-10.1 urea nitrogen, blood 13 mg/dL 7-18 creatinine, serum 0.84 mg/dL 0.60-1.30 sodium, serum 140 mmol/L 239-058 0379/08/21 potassium, serum 3.8 mmol/L 3.5-5.2 chloride, serum [...] ... - Chemistry sodium, serum 141 mmol/L 450-169 5291/08/07 carbon dioxide, venous blood 34.0 mmol/L 21.0-32.0 [...] 1.40 mg/dL 0.00-1.00 cholesterol, serum 192 mg/dL 800-561 9118/10/19 triglyceride, serum, fasting 71 mg/dL 30-200 HDL cholesterol, serum 72 mg/dL 32-60 LDL cholesterol, serum 106 mg/dL 0-130 Lab Report: Rapid Strep - Lab Microbial identification kit, rapid strep method Negative Negative Lab Report: THEOPHYLLINE - Toxicology theophylline level, serum 3.1 ug/mL 10.0-20.0 Encounters Code Encounter Date Provider Facility CPT-20164 Level 4 Est. Patient 10:17:51 CABLE TOOL DRILLER Harinder Cr [facility] CPT-51772 Level 3 Est. Patient 12:36:15 CABLE TOOL DRILLER Harinder Cr [facility] CPT-92955 Level 3 Est. Patient 15:14:45 CABLE TOOL DRILLER Harinder Cr [facility] CPT-77231 Level 4 Est. Patient 14:45:25 CDT Harinder Cr [facility] CPT-78960 Level 4 Est. Patient 09:15:13 CDT Harinder Cr [facility] CPT-30884 Level 3 Est. Patient 11:51:58 CDT Harinder Cr [facility] CPT-83777 Level 3 Est. Patient 11:30:05 CDT Harinder Cr [facility] CPT-41354 Level 4 Est. Patient 10:19:23 CDT Harinder Cr [facility] CPT-87608 Level 3 Est. Patient 09:58:58 CDT Harinder Cr [facility] CPT-62401 Level 3 Est. Patient 12:37:21 CDT Harinder Cr [facility] CPT-56418 Level 3 Est. Patient 18:37:17 CDT Harinder Hernandez [facility] CPT-96436 Level 4 Est. Patient 11:15:54 CDT Nettie Newberry APRN [facility] CPT-63615 Level 3 Est. Patient 16:42:24 CDT Harinder Hernandez [facility] CPT-29811 Level 3 Est. Patient 15:03:36 CDT Harinder Hernandez [facility] CPT-63409 Level 3 Est. Patient 15:03:20 CDT Harinder Hernandez [facility] CPT-96753 Level 3 Est. Patient 12:14:34 CDT Harinder Hernandez [facility] CPT-56125 Level 3 Est. Patient 13:47:15 CDT Harinder Hernandez [facility] CPT-55897 Level 3 Est. Patient 14:08:24 CDT Harinder Hernandez [facility] CPT-55057 Level 3 Est. Patient 10:07:15 CDT Harinder Hernandez [facility] CPT-98647 Level 3 Est. Patient 10:06:59 CDT Harinder Hernandez [facility] CPT-25889 Level 3 Est. Patient 15:53:29 CDT Jae Morgan MD [facility] CPT-30665 Level 3 Est. Patient 17:19:04 CDT Harinder Hernandez [facility] CPT-90844 Level 3 Est. Patient 11:13:01 CDT Harinder Shaye Hernandez [facility] CPT-00859 Level 3 Est. Patient 09:03:58 CDT Harinder Hernandez [facility] CPT-86115 Level 3 Est. Patient 14:46:45 CABLE TOOL DRILLER Harinder Cr David [facility] CPT-60534 Level 3 Est. Patient 09:35:49 CABLE TOOL DRILLER Harinder W [facility] CPT-08051 Level 3 Est. Patient 09:29:37 CABLE TOOL DRILLER Harinder Hernandez [facility] CPT-15649 Level 3 Est. Patient 15:51:07 CDT Harinder Hernandez [facility] CPT-90829 Level 3 Est. Patient 18:13:13 CDT Harinder Hernandez [facility] CPT-27951 Level 3 Est. Patient 10:44:19 CDT Harinder Hernandez [facility] CPT-93318 Level 4 Est. Patient 10:07:19 CABLE TOOL DRILLER Harinder Cr [facility] CPT-78444 Level 3 Est. Patient 15:59:32 CABLE TOOL DRILLER Harinder Hernandez [facility] Procedures Code Procedure Name Date Entry Date Standard Description CPT-G0009 Administration of Pneumococcal Vaccine 10:33:25 CABLE TOOL DRILLER CPT-93974 Pneumovax 23 Injection Injectable 25 MCG/0.5ML 10:33:25 CABLE TOOL DRILLER CPT-29973 First Vx - Ix admin for Medicare patients 10:33:25 CABLE TOOL DRILLER CPT-58386 Fluzone Quadrivalent Intramuscular Suspension 0.5 ML 10: 33:25 CABLE TOOL DRILLER CPT-Cryo Cryotherapy 10:17:51 CABLE TOOL DRILLER CPT-G0438 Initial Annual Wellness Exam 10:08:59 CABLE TOOL DRILLER CPT-59701 Abd compl w upright - XRAY USE ONLY 14:48:09 CDT 02/18 CPT-61336 Port a cath flush 13:46:05 CDT CPT-04164 Hip, complete, 2-3 views - XRAY USE ONLY 10:28:40 CDT CPT-36949 BMP - LAB USE ONLY 16:45:09 CABLE TOOL DRILLER CPT-37299 Port a cath flush 12:00:13 CABLE TOOL DRILLER CPT-TCMM Transitional Care Mgmt-Moderate 11:20:16 CABLE TOOL DRILLER CPT-13272 First Vx - Ix admin for Medicare patients 17:35:15 CDT CPT-68567 Fluzone Preservative Free Intramuscular Suspension 17:35 :15 CDT CPT-62175 Microalbumin - LAB USE ONLY 11:52:05 CDT CPT-TCMM Transitional Care Mgmt-Moderate 11:33:57 CDT CPT-04949 No Charge Offi Visit 14:11:29 CDT CPT-14736 Magnesium - LAB USE ONLY 10:45:44 CDT CPT-99174 Lipid - LAB USE ONLY 10:45:44 CDT CPT-36642 CBC - LAB USE ONLY 10:45:44 CDT CPT-15653 Venipuncture Draw Fee 10:45:43 CDT CPT-65564 Venipuncture Draw Fee 18:21:27 CDT CPT-JTINJ Asp/Joint Injection 18:38:04 CDT CPT-39825 Immunization Each Additional Inj 17:38:04 CDT CPT-37776 Immunization Single Admin 17:38:04 CDT CPT-91344 Prevnar 13 17:38:04 CDT CPT-86068 Fluzone Quadrivalent preservative free (>=3yrs.) 17:38: 04 CDT CPT-81169 No Charge Offi Visit 11:14:03 CDT CPT-28650 Chest 2V Frontal and Lat 14:00:18 CDT CPT-OV Office Visit 16:10:28 CDT CPT-JTINJ Asp/Joint Injection 09:03:57 CDT CPT-Cryo Cryotherapy 09:35:49 CABLE TOOL DRILLER CPT-JTINJ Asp/Joint Injection 09:34:45 CABLE TOOL DRILLER CPT-J2930 Solu Medrol 125 mg (Methyl Prednisolone Sodium Succinate) 20:37:27 CDT CPT-85898 Abx/Therapy Injection 20:37:27 CDT CPT-59626 Port a cath flush 08:15:51 CDT CPT-59420 Port a cath flush 09:54:16 CDT CPT-36890 Port a cath flush 09:38:02 CDT CPT-90755 Port a cath flush 11:00:27 CABLE TOOL DRILLER
--- OUTSIDE RECORDS SUMMARY | 2017-12-29 03:22 | XMS REPORT | Clinical Summary ---
Author Author Admin, QIE Organization [facility] [employer] Address Unknown Phone Unavailable Allergies, Adverse Reactions, [...] Needs vaccination for influenza ICD-V04.81 Inactive Harinder Hernandze DO Need for prophylactic vaccination against streptococcus pneumoniae ( Pneumococcus) ICD-V03.82 Inactive Harinder Hernandez DO Greater trochanteric bursitis, left ICD-726.5 Inactive Harinder Hernandez DO Medication List Medication Instructions Start Date Stop Date Generic Name NDC Status Provider Patient Instruction POTASSIUM CHLORIDE 20 MEQ ORAL PACK 1 tab po BID for 7 days then 1 tab po q day therafter. POTASSIUM CHLORIDE 76046765964 Active Kortney Mccain Active POTASSIUM CHLORIDE CR 10 MEQ CPCR 1 capsule BID POTASSIUM CHLORIDE 99807841262 No Longer Active Kortney Mccain Active LASIX 20 MG TAB 1 tablet by mouth every morning FUROSEMIDE 67524177808 No Longer Active Kortney Mccain Active SPIRONOLACTONE 25 MG TAB 1 tablet by mouth daily SPIRONOLACTONE 64496843117 Active Ciera Pimentel Active FLUOXETINE HCL 10 MG ORAL CAPS 1 po qd for depression/anxiety FLUOXETINE HCL 06613460467 Active Harinder Hernandez DO Active VOLTAREN 1 % GEL apply q 6-8 hour to left arm as needed for pain DICLOFENAC SODIUM 88679053431 Active Harinder Hernandez DO Active ALBUTEROL SULFATE 0.083 % NEBU SOLN 1 vial neb q 4hrs for severe asthma. 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 FLUTICASONE PROPIONATE HFA 39799213061 Active Harinder Hernandez DO Active EPIPEN 2-BRUNA 0.3 MG/0.3ML INJ SOAJ 1 INJ NEEDED EPINEPHRINE 02643296140 Active Harinder Hernandez DO Active PREDNISONE 20 MG TAB 1 tab twice daily for 3 day, then one daily for three days PREDNISONE 07421292945 No Longer Active Harinder Hernandez DO Active PREDNISONE 20 MG TAB 1 tablet twice daily for 2 days, then 1 tablet once daily for 2 days PREDNISONE 20593195660 No Longer Active Harinder Hernandez DO Active ASMANEX 120 METERED DOSES 220 MCG/INH INH AEPB 2 puffs orally twice daily MOMETASONE FUROATE 17965970408 Active Jeri Sosa LPN Active TOPIRAMATE 25 MG TABS 1 tab po BID TOPIRAMATE 49633628844 No Longer Active Nettie Newberry APRN Active AMLODIPINE BESYLATE 5 MG ORAL TABS Take 1 tab po daily AMLODIPINE BESYLATE 79871137805 No Longer Active Nettie Newberry APRN Active MECLIZINE HCL 25 MG TAB 1 tablet three times daily for 3 days, then 1/2 tab three times daily for 3 days. MECLIZINE HCL 66292695038 No Longer Active Nettie Newberry MAHENDRA Active AMITRIPTYLINE HCL 25 MG ORAL TABS 1 q hs prn AMITRIPTYLINE HCL 26915279147 No Longer Active Nettie Newberry MAHENDRA Active DILAUDID 2 MG ORAL TABS Take 1/2 tab po every 4 hours as needed for pain 2014 HYDROMORPHONE HCL 32091564258 No Longer Active Nettieog Newberry APRN Active CLOPIDOGREL BISULFATE 75 MG ORAL TABS 1 tab by mouth once daily CLOPIDOGREL BISULFATE 40278742816 Active Harinder Hernandez DO Active ATORVASTATIN CALCIUM 10 MG ORAL TABS 1 at bedtime ATORVASTATIN CALCIUM 40946351989 Active Tawnya Pardo MA Active LOVASTATIN 40 MG ORAL TABS Take 1 tab po every hs LOVASTATIN 91688493475 No Longer Active Harinder Hernandez DO Active PREDNISONE 20 MG TAB 2 tabs daily for 4 days, 1 tab daily for 4 days, 1/2 tab daily for 4 days PREDNISONE 60660476025 No Longer Active Harinder Hernandez DO Active LEVAQUIN 500 MG ORAL TABS Take 1 tab po daily x 8 days LEVOFLOXACIN 76724773611 No Longer Active Harinder Hernandez DO Active VENTOLIN HFA 108 (90 BASE) MCG/ACT AERS 2 -4 puffs four times a day PRN 2013 ALBUTEROL SULFATE 51491900279 No Longer Active Jeri Sosa LPN Active ACEBUTOLOL HCL 200 MG CAPS 1 cap in the morning and 2 caps in the evening ACEBUTOLOL HCL 86441565594 No Longer Active Harinder Hernandez DO Active CEFDINIR 300 MG ORAL CAPS take 1 cap po bid x 10 days CEFDINIR 14932282307 No Longer Active Harinder Hernandez DO Active LOVASTATIN 40 MG TABS 1 pill by mouth nightly for cholesterol LOVASTATIN 47571143493 No Longer Active Nettie Rohith MAHENDRA Active NITROSTAT 0.4 MG SUBL 1 tab under tongueas needed for chest pain ( may take 3 total, 5 min apart, then call 911) NITROGLYCERIN 71491087004 No Longer Active Nettie Newberry MAHENDRA Active POTASSIUM CHLORIDE CR 10 MEQ CPCR 1 capsule by mouth daily 02/14 POTASSIUM CHLORIDE 83820321085 No Longer [facility] Active TESSALON PERLES 100 MG CAP 1 to 2 tablets by mouth 3 times daily as needed for cough BENZONATATE 89219629959 No Longer Active Nettie Newberry MAHENDRA Active THEOPHYLLINE ER 200 MG ORAL [id number] Take 1 tab every 12 hours THEOPHYLLINE 13674927607 Active Harinder Hernandez DO Active PREDNISONE 20 MG TAB 2 po qd x 5 days PREDNISONE 30492731023 No Longer Active Jae Morgan MD Active AZITHROMYCIN 250 MG TABS 2 po qd x 1 day, then 1 po qd x 4 days AZITHROMYCIN 36110081692 No Longer Active Jae Morgan MD Active PREDNISONE 20 MG TAB 1 tab twice daily for 3 day, then one daily for three days PREDNISONE 29530800804 No Longer Active Jae Morgan MD Active SINGULAIR 10 MG TABS 1 pill by mouth every evening for breathing. MONTELUKAST SODIUM 45194616811 Active Tawnya Pardo MA Active TYLENOL 325 MG TAB 3 by mouth q4h as needed ACETAMINOPHEN 69976968450 Active Harinder Hernandez DO Active POTASSIUM CHLORIDE ER 10 MEQ CR-TABS take 1 tab po daily POTASSIUM CHLORIDE 23560881744 No Longer Active Harinder Hernandez DO Active PREDNISONE 20 MG TAB 1 TID x 2 days, then 1 BID x 3 days, then 1 Daily x 3 days, then stop PREDNISONE 10600999768 No Longer Active John Montemayor APRN Active LEVAQUIN 500 MG TAB 1 tablet by mouth daily LEVOFLOXACIN 92687490561 No Longer Active John Montemayor [employer] Active NEURONTIN 300 MG CAP 1 cap by mouth three times daily for restless leg 06/22 GABAPENTIN 20663132006 No Longer Active Harinder Hernandez DO Active BENZONATATE 100 MG CAPS 1 cap po TID PRN BENZONATATE 57315250710 No Longer Active Harinder Hernandez DO Active MONTELUKAST SODIUM 10 MG TABS 1 tab po in the evening MONTELUKAST SODIUM 36071219745 No Longer Active Harinder Hernandez DO Active MUPIROCIN 2 % OINT apply to affected area BID x 14 days MUPIROCIN 49021981318 No Longer Active Harinder Hernandez DO Active TYLENOL EXTRA STRENGTH 500 MG TABS as needed ACETAMINOPHEN 48224369119 No Longer Active Harinder Hernandez DO Active PREDNISONE 10 MG TABS 1 tab po daily PREDNISONE 03433996208 No Longer Active Harinder Hernandez DO Active PREDNISONE 20 MG TAB 2 tabs daily for 4 days, 1 tab daily for 4 days, 1/2 tab daily for 4 days PREDNISONE 31187835785 No Longer Active Harinder Hernandez DO Active AZITHROMYCIN 250 MG TABS 2 po qd x 1 day, then 1 po qd x 4 days AZITHROMYCIN 04368956328 No Longer Active Harinder Hernandez DO Active PREDNISONE 20 MG TAB 3 tabs today, then 1 tab twice daily for 3 day, then one daily for three days PREDNISONE 03684332346 No Longer Active Harinder Hernandez DO Active NIFEDIAC CC 30 MG [id number] 1 tablet daily for raynaud's syndrome NIFEDIPINE 99445439881 No Longer Active Tawnya Pardo MA Active AMBIEN 10 MG TAB 1/2 tab by mouth at bedtime as needed for sleep ZOLPIDEM TARTRATE 52595222720 Active Harinder Hernandez DO Active CLONAZEPAM 1 MG TABS 1 tablet at bedtime for insomnia and restless legs 09/14 CLONAZEPAM 55847915192 Active Harinder Hernandez DO Active CLONAZEPAM 0.5 MG TABS 1 tab po daily CLONAZEPAM 90773087257 No Longer Active Harinder Hernandez DO Active PREDNISONE 10 MG TAB 1 tablet daily for COPD PREDNISONE 80002679313 Active Harinder Hernandez DO Active PROAIR HFA 108 (90 BASE) MCG/ACT AERS 2 puffs four times a day as needed 2012 ALBUTEROL SULFATE 88095762604 Active Harinder Hernandez DO Active FLOVENT HFA 110 MCG/ACT AERO 2 puffs inhaled b.i.d. FLUTICASONE PROPIONATE HFA 24445093456 Active Kortney Mccain Active ACIPHEX 20 MG TBEC 1 tab po daily RABEPRAZOLE SODIUM 43710510695 Active Kaylah Newberry Active CLONAZEPAM 0.5 MG TABS 1 tab po daily CLONAZEPAM 0.5 MG TABS 587577 CLONAZEPAM Inactive PREDNISONE 20 MG TAB 3 tabs today, then 1 tab twice daily for 3 day, then one daily for three days PREDNISONE 20 MG TAB 343038 PREDNISONE Inactive PREDNISONE 20 MG TAB 2 tabs daily for 4 days, 1 tab daily for 4 days, 1/2 tab daily for 4 days PREDNISONE 20 MG TAB 695145 PREDNISONE Inactive PREDNISONE 10 MG TABS 1 tab po daily PREDNISONE 10 MG TABS 247311 PREDNISONE Inactive TYLENOL EXTRA STRENGTH 500 MG TABS as needed TYLENOL EXTRA STRENGTH 500 MG TABS ACETAMINOPHEN Inactive MUPIROCIN 2 % OINT apply to affected area BID x 14 days MUPIROCIN 2 % OINT 593499 MUPIROCIN Inactive MONTELUKAST SODIUM 10 MG TABS 1 tab po in the evening MONTELUKAST SODIUM 10 MG TABS 20010818 MONTELUKAST SODIUM Inactive BENZONATATE 100 MG CAPS 1 cap po TID PRN BENZONATATE 100 MG CAPS 722000 BENZONATATE Inactive NEURONTIN 300 MG CAP 1 cap by mouth three times daily for restless leg 06/22 NEURONTIN 300 MG CAP 845225 GABAPENTIN Inactive LEVAQUIN 500 MG TAB 1 tablet by mouth daily LEVAQUIN 500 MG TAB 549873 LEVOFLOXACIN Inactive PREDNISONE 20 MG TAB 1 TID x 2 days, then 1 BID x 3 days, then 1 Daily x 3 days, then stop PREDNISONE 20 MG TAB 299352 PREDNISONE Inactive POTASSIUM CHLORIDE ER 10 MEQ CR-TABS take 1 tab po daily POTASSIUM CHLORIDE ER 10 MEQ CR-TABS POTASSIUM CHLORIDE Inactive PREDNISONE 20 MG TAB 1 tab twice daily for 3 day, then one daily for three days PREDNISONE 20 MG TAB 243622 PREDNISONE Inactive TESSALON PERLES 100 MG CAP 1 to 2 tablets by mouth 3 times daily as needed for cough TESSALON PERLES 100 MG CAP 207446 BENZONATATE Inactive POTASSIUM CHLORIDE CR 10 MEQ CPCR 1 capsule by mouth daily 02/14 POTASSIUM CHLORIDE CR 10 MEQ CPCR POTASSIUM CHLORIDE Inactive NITROSTAT 0.4 MG SUBL 1 tab under tongueas needed for chest pain ( may take 3 total, 5 min apart, then call 911) NITROSTAT 0.4 MG SUBL 319122 NITROGLYCERIN Inactive LOVASTATIN 40 MG TABS 1 pill by mouth nightly for cholesterol LOVASTATIN 40 MG TABS 270731 LOVASTATIN Inactive CEFDINIR 300 MG ORAL CAPS take 1 cap po bid x 10 days CEFDINIR 300 MG ORAL CAPS 085509 CEFDINIR Inactive ACEBUTOLOL HCL 200 MG CAPS 1 cap in the morning and 2 caps in the evening ACEBUTOLOL HCL 200 MG CAPS 002876 ACEBUTOLOL HCL Inactive VENTOLIN HFA 108 (90 BASE) MCG/ACT AERS 2 -4 puffs four times a day PRN 2013 VENTOLIN HFA 108 (90 BASE) MCG/ACT AERS ALBUTEROL SULFATE Inactive LEVAQUIN 500 MG ORAL TABS Take 1 tab po daily x 8 days LEVAQUIN 500 MG ORAL TABS 143289 LEVOFLOXACIN Inactive PREDNISONE 20 MG TAB 2 tabs daily for 4 days, 1 tab daily for 4 days, 1/2 tab daily for 4 days PREDNISONE 20 MG TAB 582017 PREDNISONE Inactive LOVASTATIN 40 MG ORAL TABS Take 1 tab po every hs LOVASTATIN 40 MG ORAL TABS 040399 LOVASTATIN Inactive DILAUDID 2 MG ORAL TABS Take 1/2 tab po every 4 hours as needed for pain 2014 DILAUDID 2 MG ORAL TABS 402801 HYDROMORPHONE HCL Inactive AMITRIPTYLINE HCL 25 MG ORAL TABS 1 q hs prn AMITRIPTYLINE HCL 25 MG ORAL TABS 977910 AMITRIPTYLINE HCL Inactive MECLIZINE HCL 25 MG TAB 1 tablet three times daily for 3 days, then 1/2 tab three times daily for 3 days. MECLIZINE HCL 25 MG TAB 134983 MECLIZINE HCL Inactive AMLODIPINE BESYLATE 5 MG ORAL TABS Take 1 tab po daily AMLODIPINE BESYLATE 5 MG ORAL TABS 536439 AMLODIPINE BESYLATE Inactive TOPIRAMATE 25 MG TABS 1 tab po BID TOPIRAMATE 25 MG TABS 010667 TOPIRAMATE Inactive PREDNISONE 20 MG TAB 1 tablet twice daily for 2 days, then 1 tablet once daily for 2 days PREDNISONE 20 MG TAB 318445 PREDNISONE Inactive PREDNISONE 20 MG TAB 1 tab twice daily for 3 day, then one daily for three days PREDNISONE 20 MG TAB 177219 PREDNISONE Inactive NIFEDIPINE ER 30 MG ORAL [id number] 1 daily NIFEDIPINE ER 30 MG ORAL [id number] NIFEDIPINE Inactive AMLODIPINE BESYLATE 5 MG TABS 1 tablet by mouth daily AMLODIPINE BESYLATE 5 MG TABS 430696 AMLODIPINE BESYLATE Inactive LASIX 20 MG TAB 1 tablet by mouth every morning LASIX 20 MG TAB 146886 FUROSEMIDE Inactive POTASSIUM CHLORIDE CR 10 MEQ CPCR 1 capsule BID POTASSIUM CHLORIDE CR 10 MEQ CPCR POTASSIUM CHLORIDE Inactive AZITHROMYCIN 250 MG TABS 2 po qd x 1 day, then 1 po qd x 4 days AZITHROMYCIN 250 MG TABS 5895450 AZITHROMYCIN Inactive AZITHROMYCIN 250 MG TABS 2 po qd x 1 day, then 1 po qd x 4 days AZITHROMYCIN 250 MG TABS 2817867 AZITHROMYCIN Inactive PREDNISONE 20 MG TAB 2 po qd x 5 days PREDNISONE 20 MG TAB 321095 PREDNISONE Inactive Vital Signs Date Name Value [...] Panel - Chemistry sodium, serum 137 mmol/L 923-117 0663/01/03 potassium, serum 3.4 mmol/L 3.5-5.2 chloride, serum 102 mmol/L 98-107 carbon dioxide, venous blood 29.2 mmol/L 21.0-32.0 blood glucose 87 mg/dL 65-110 calcium, serum 8.5 mg/dL 8.5-10.1 urea nitrogen, blood 8 mg/dL 7-18 creatinine, serum 0.82 mg/dL 0.55-1.30 sodium, serum 140 mmol/L 781-317 4564/07/13 potassium, serum 3.2 mmol/L 3.5-5.2 chloride, serum 103 mmol/L 98-107 carbon dioxide, venous blood 26.9 mmol/L 21.0-32.0 blood glucose 93 mg/dL 65-110 calcium, serum 9.2 mg/dL 8.5-10.1 urea nitrogen, blood 13 mg/dL 7-18 creatinine, serum 0.84 mg/dL 0.60-1.30 sodium, serum 140 mmol/L 301-869 0046/08/21 potassium, serum 3.8 mmol/L 3.5-5.2 chloride, serum [...] ... - Chemistry sodium, serum 141 mmol/L 210-137 3847/08/07 carbon dioxide, venous blood 34.0 mmol/L 21.0-32.0 [...] 0-19 Encounters Code Encounter Date Provider Facility CPT-54240 Level 4 Est. Patient 14:45:25 CDT Harinder Cr [facility] CPT-58988 Level 4 Est. Patient 09:15:13 CDT Harinder Cr [facility] CPT-66203 Level 3 Est. Patient 11:51:58 CDT Harinder Cr [facility] CPT-80018 Level 3 Est. Patient 11:30:05 CDT Harinder Cr [facility] CPT-51074 Level 4 Est. Patient 10:19:23 CDT Harinder Cr [facility] CPT-70507 Level 3 Est. Patient 09:58:58 CDT Harinder Cr [facility] CPT-45549 Level 3 Est. Patient 12:37:21 CDT Harinder Cr [facility] CPT-51606 Level 3 Est. Patient 18:37:17 CDT Harinder Cr [facility] CPT-14010 Level 4 Est. Patient 11:15:54 CDT Nettie Rohith [facility] CPT-06193 Level 3 Est. Patient 16:42:24 CDT Harinder Cr [facility] CPT-47212 Level 3 Est. Patient 15:03:36 CDT Harinder Cr [facility] CPT-02849 Level 3 Est. Patient 15:03:20 CDT Harinder Cr [facility] CPT-09675 Level 3 Est. Patient 12:14:34 CDT Harinder Cr [facility] CPT-06891 Level 3 Est. Patient 13:47:15 CDT Harinder Cr [facility] CPT-45399 Level 3 Est. Patient 14:08:24 CDT Harinder Hernandez [facility] CPT-95129 Level 3 Est. Patient 10:07:15 CDT Harinder Hernandez [facility] CPT-16261 Level 3 Est. Patient 10:06:59 CDT Harinder Hernandez [facility] CPT-58316 Level 3 Est. Patient 15:53:29 CDT Jae Morgan MD [facility] CPT-28135 Level 3 Est. Patient 17:19:04 CDT Harinder Hernandez [facility] CPT-87638 Level 3 Est. Patient 11:13:01 CDT Harinder Hernandez [facility] CPT-61171 Level 3 Est. Patient 09:03:58 CDT Harinder Hernandez [facility] CPT-36168 Level 3 Est. Patient 14:46:45 [employer] Harinder Hernandez [facility] CPT-40025 Level 3 Est. Patient 09:35:49 [employer] Harinder Hernandez [facility] CPT-02440 Level 3 Est. Patient 09:29:37 [employer] Harinder Hernandez [facility] CPT-44663 Level 3 Est. Patient 15:51:07 CDT Harinder Hernandez [facility] CPT-20180 Level 3 Est. Patient 18:13:13 CDT Harinder Hernandez [facility] CPT-13322 Level 3 Est. Patient 10:44:19 CDT Harinder Cr [facility] CPT-87973 Level 4 Est. Patient 10:07:19 [employer] Harinder Hernandez [facility] CPT-89200 Level 3 Est. Patient 15:59:32 [employer] Harinder Cr [facility] Procedures Code Procedure Name Date Entry Date Standard Description CPT-58215 Abd compl w upright - XRAY USE ONLY 14:48:09 CDT 02/18 CPT-49562 Port a cath flush 13:46:05 CDT CPT-49687 Hip, complete, 2-3 views - XRAY USE ONLY 10:28:40 CDT CPT-96276 BMP - LAB USE ONLY 16:45:09 [employer] CPT-62933 Port a cath flush 12:00:13 [employer] CPT-TCMM Transitional Care Mgmt-Moderate 11:20:16 [employer] CPT-35186 First Vx - Ix admin for Medicare patients 17:35:15 CDT CPT-34528 Fluzone Preservative Free Intramuscular Suspension 17:35 :15 CDT CPT-33720 Microalbumin - LAB USE ONLY 11:52:05 CDT CPT-TCMM Transitional Care Mgmt-Moderate 11:33:57 CDT CPT-73280 No Charge Offi Visit 14:11:29 CDT CPT-46554 Magnesium - LAB USE ONLY 10:45:44 CDT CPT-59405 Lipid - LAB USE ONLY 10:45:44 CDT CPT-04062 CBC - LAB USE ONLY 10:45:44 CDT CPT-94032 Venipuncture Draw Fee 10:45:43 CDT CPT-40977 Venipuncture Draw Fee 18:21:27 CDT CPT-JTINJ Asp/Joint Injection 18:38:04 CDT CPT-43212 Immunization Each Additional Inj 17:38:04 CDT CPT-50202 Immunization Single Admin 17:38:04 CDT CPT-71671 Prevnar 13 17:38:04 CDT CPT-06829 Fluzone Quadrivalent preservative free (>=3yrs.) 17:38: 04 CDT CPT-33345 No Charge Offi Visit 11:14:03 CDT CPT-58094 Chest 2V Frontal and Lat 14:00:18 CDT CPT-OV Office Visit 16:10:28 CDT CPT-JTINJ Asp/Joint Injection 09:03:57 CDT CPT-Cryo Cryotherapy 09:35:49 [employer] CPT-JTINJ Asp/Joint Injection 09:34:45 [employer]ER CPT-J2930 Solu Medrol 125 mg (Methyl Prednisolone Sodium Succinate) 20:37:27 CDT CPT-00822 Abx/Therapy Injection 20:37:27 CDT CPT-96064 Port a cath flush 08:15:51 CDT CPT-05674 Port a cath flush 09:54:16 CDT CPT-99953 Port a cath flush 09:38:02 CDT CPT-35886 Port a cath flush 11:00:27 [employer]ER
--- OUTSIDE RECORDS SUMMARY | 2017-12-29 03:23 | XMS REPORT ---
Author Author [facility] Medical Staff Organization [facility] Address [address], [place] [address] Phone [phone] Care Team Providers Care Youth Care Worker Name Role Phone HARINDER HERNANDEZ DO PP [phone] HARINDER HERNANDEZ DO PP [phone] Summary purpose TRANSITION OF CARE AUTO GENERATION [...] Relevant diagnostic tests and/or laboratory data RESULTS [id number]:21:00 Discharge Summary DISCHARGE SUMMARY ADMISSION DIAGNOSIS:Right lower quadrant abdominal pain. DISCHARGE DIAGNOSIS:Community-acquired pneumonia. HOSPITALCONSULTATIONS:None. PROCEDURES:None. PERTINENT HISTORY OF PRESENT ILLNESS INFORMATION:This is a 59-year-old female who was seen by Dr. Hernandez in the clinic. She had had a cough, fever, chest pain, and belly pain that had started a few days prior. She had been running some fevers up to 102. She is having loose bowels and had a recent history of Clostridium difficile. She is having some pain with urination and urgency and had fairly recently been on vancomycin due to antibiotic associated Clostridium difficile colitis. This female was admitted to the hospital. She had labs done as well as some intravenous fluids. Her initial lab work showed an elevated sedimentation rate of 65, a normal white count with 71% neutrophils, as well as normal chemistries. She was put on meropenem. She had intravenous fluids. She was continuing to have some pain so she had an abdominal sonogram initially done, which showed a mild prominent right renal pelvis. A CAT scan was then subsequently done which showed negative CAT Scan of the abdomen and pelvis. Chest x-ray did show a left lower lobe pneumonia and with the antibiotics this did gradually start resolving. The patient started making improvements. Her breathing improved. Her vital signs and lab work improved. On the day of discharge, the patient's lab work was good. Her vital signs were normal. Physical exam was normal. She had been switched to [place] to make it to where she could continue the outpatient infusion therapy. She is allergic to most oral antibiotics so infusion was required. At the time of discharge, the patient was stable and ready for discharge to home. DISCHARGE MEDICATIONS:Invanz 1 gram daily for 7 days, which will be done at [facility] IV. Bactroban 2% cream twice a day. Acebutolol 200 mg, 1 in the morning and 2 at night. Effexor 20 mg daily. Flovent 110 mcg 2 puffs twice a day. Klonopin 0.5 mg at night. Nifediac 30 mg daily. Prednisone 10 mg daily. Singular 10 mg daily. Theophylline 200 mg twice a day. Topiramate 25 mg twice a day. Amitriptyline 25 mg as needed for migraines. EpiPen as needed for allergic reaction. ProAir HFA 90 mcg 2 puffs 4 times daily as needed for chronic obstructive pulmonary disease as well as a Ventolin inhaler 2 puffs 4 times daily as needed. Tylenol 325 mg 3 tablets every 4 hours as needed for pain. DISCHARGE INSTRUCTIONS: 1. The patient was advised to rest. 2. She should push fluids. 3. The patient will be set up to do outpatient infusion therapy. She will have an intravenous access for 7 days. We will do that at [facility] for her [place] daily. 4. The patient will follow up with Dr. Hernandez in about 2 weeks. MD WALT Mcdonnell/cdj1 14:21:48/04/24/2015 19:25:44 Clinic Code: cc: <[facility] [address] [address] <END HEADER> [id number]:03:00 Progress Note PROGRESS NOTE 04/23/2015 14:03:25 S: [...] for Invanz IV to be done at [facility] for the next 7 days. She will also follow up with Dr. Hernandez in the next 1 to 2 weeks. MD WALT Mcdonnell/jt 04/23/2015 14:03:25/04/23/2015 18:04:53 Clinic Code: cc: <[facility] [address] [address]<END HEADER> [id number]:26:00 Progress Note PROGRESS NOTE 04/22/2015 13:26:16 S: [...] plan on outpatient infusion perhaps at a [facility] (as that is where she resides). DO ABIOLA Tariq/jt1 13:26:16/04/22/2015 13:42:05 Clinic Code: cc: <[facility] [address] [place] [address]<END HEADER> [id number]:27:00 Progress Note PROGRESS NOTE 04/21/2015 08:27:56 S: [...] nasal symptoms. 3. Probiotics. 4. See orders. DO ABIOLA Tariq/nh04/21/2015 08:27:56/04/21/2015 10:37:51 Clinic Code: cc: <[facility] [address] [place] [address]<END HEADER> [id number]:11:00 Progress Note PROGRESS NOTE 04/20/2015 08:11:36 S: [...] morning. 3. See orders. Harinder Hernandez DO [facility]/mi04/20/2015 08:11:36/04/20/2015 08:57:49 Clinic Code: 15281 cc: <[facility] [address] [place] [address]<END HEADER> Routine Urinalysis [id number]:15:00 Result Normal Range Units Color YELLOW Clarity Cloudy Specific [place] 1.015 1.003-1.035 pH 6.0 4.5-8.0 Glucose NEGATIVE Bilirubin NEGATIVE Ketones NEGATIVE Protein NEGATIVE Urobilinogen 0.2 0-0.2 E.U./dL Nitrites NEGATIVE Blood 3+ Leukocytes 1+ WBCs 10-20 RBCs 10-20 Squamous Epithelial 1+ Bacteria 2+ Blood Cultures [id number]:30:00 Blood Culture Plate Date and Time 04/19/2015 13:36 SourceBLOOD CULTURE REPORT NoGrowth at 1 day. Unless otherwise notified. Final report in 5 Days. Release Date/Time: 04/20/2015 08:05 CULTURE REPORT No growth in 5 days. Release Date/Time: 04/25/2015 09:30 [id number]:00 Blood Culture Plate Date and Time 04/19/2015 13:36 SourceBLOOD CULTURE REPORT NoGrowth at 1 day. Unless otherwise notified. Final report in 5 Days. Release Date/Time: 04/20/2015 08:06 CULTURE REPORT No growth in 5 days. Release Date/Time: 04/25/2015 09:30 Routine Cultures [id number]:28:00 Urine Culture Plate Date and Time 04/19/2015 13:28 SourceURINE CULTURE REPORT <10,000 colonies/ml Mixed Gram Pos Margy Culture Pending Release Date/Time: 04/20/2015 08:06 CULTURE REPORT 20,000 colonies/ml Mixed Gram Pos Margy Release Date/Time: 04/21/2015 09:52 Chemistry [id number]:35:00 Result Normal Range Units Sodium 138 134-145 [...] 5.6 10-20 Estimated GFR 64 >=60 mL/min/1.7 [id number]:25:00 Result Normal Range Units Sodium 137 134-145 [...] mL/min/1.7 Lactic Acid 1.1 0.4-2.0 mmol/L Hematology [id number]:25:00 Result Normal Range Units WBC 10.5 4.8-10.8 103/uL RBC L 3.7 4.2-5.4 106/uL HGB L 11.3 12.0-16.0 g/dl HCT L 34.2 36.9-47.0 % MCV 93.7 81-99 FL MCH 31.0 27-31 pg MCHC 33.0 33-37 g/dl RDW 14.3 11.5-15.5 % PLT 202 130-400 103/uL MPV 9.8 7.3-10.4 FL Neutro % H 71.8 40-70 % Lymph % 20.6 20-40 % [place] % 6.8 0-10.0 % Eos % 0.3 0-7.0 % Baso % 0.3 0-2 % Neutro # 7.5 1.5-7.5 103/uL Lymph # 2.2 0.9-4.0 103/uL [place] # 0.7 0-0.8 103/uL Eos # 0.0 0-0.6 103/uL Baso # 0.0 0-0.1 103/uL Body Fluid [id number]:15:00 Result Normal Range Units pH 6.0 4.5-8.0 Hematology - Other (Misc) [id number]:25:00 Result Normal Range Units Sed Rate H 65 0-30 Radiology Results [id number]:12:00 Chest X-Ray - 2 View PACs Image [...] clearing of left basilar pneumonia. MD BERENICE Muniz/mi04/22/2015 08:50:00 / 04/22/2015 09:50:28 cc:Dr. Harinder Hernandez [...] clearing of left basilar pneumonia. MD BERENICE Muniz/mi04/22/2015 08:50:00 / 04/22/2015 09:50:28 cc:Dr. Harinder Hernandez This document has been electronically Signed by: ADITYA NUÑEZ MD On: 20141:12P PYLONETHRIISFEVER Result Amended on 2015-04-22 at 13:12:39. Previous status was [place]. PYLONETHRIISFEVER [id number]:31:00 CT ABD/PEL W CONTRAST PACs Image DATE OF EXAM: 2014 [id number] ABD/PELV W CONTRAST : RADIOLOGY REPORT DATE [...] No evidence of renal obstruction. MD BERENICE Muniz/mi04/21/2015 08:10: / 04/21/2015 08:59:51 cc:Dr. Harinder Hernandez This document has been electronically Signed by: On: DATE OF EXAM: 2014 [id number] ABD/PELV W CONTRAST : RADIOLOGY REPORT DATE [...] No evidence of renal obstruction. MD BERENICE Muniz/mi04/21/2015 08:10: / 04/21/2015 08:59:51 cc:Dr. Harinder Hernandez This document has been electronically Signed by: ADITYA NUÑEZ MD On: 2014 11:31A PYLONETHRIISFEVER Result Amended on 2015-04-21 at 11:31:33. Previous status was [place]. PYLONETHRIISFEVER [id number]:32:00 ABD SONO COMPLETE PACs Image DATE OF EXAM: 2014 [id number] COMPLETE SONO : RADIOLOGY REPORT DATE OF SERVICE: 04/20/15 HISTORY: Right flank pain and right upper quadrant pain COMPLETE ABDOMINAL [id number] HOURS The liver, spleen, gallbladder, and bile [...] followup study or retrograde examination. MD BERENICE Muniz/mi04/20/2015 10:46:00 / 04/20/2015 10:53:03 cc:Dr. Harinder Hernandez This document has been electronically Signed by: On: DATE OF EXAM: 2014 [id number] COMPLETE SONO : RADIOLOGY REPORT DATE OF SERVICE: 04/20/15 HISTORY: Right flank pain and right upper quadrant pain COMPLETE ABDOMINAL [id number] HOURS The liver, spleen, gallbladder, and bile [...] on 2015-04-20 at 11:32:41. Previous status was [place]. PYLONETHRIISFEVER [id number]:28:00 Chest X-Ray - 2 View PACs Image DATE OF EXAM: 2014 RAD 0300-CHEST XRAY 2 VIEW : RADIOLOGY REPORT DATE OF SERVICE: 04/19/15 HISTORY: Febrile illness. CHEST 2 VIEWS 1310 HOURS Comparison is made with 04/19/2015. There is minimal patchy infiltrate in the left lung base. The lungs are otherwise clear. Heart size and pulmonary vessels are normal. Implanted monitor and storage bin tender is noted in the chest wall. IMPRESSION: Left lower lobe infiltrate consistent with pneumonia. MD BERENICE Muniz/mi04/19/2015 13:34:00 / 04/19/2015 13:38:01 cc:Dr. Harinder Hernandez [...] size and pulmonary vessels are normal. Implanted monitor and storage bin tender is noted in the chest wall. IMPRESSION: Left lower lobe infiltrate consistent with pneumonia. MD BERENICE Muniz/mi04/19/2015 13:34:00 / 04/19/2015 13:38:01 cc:Dr. Harinder Hernandez This document has been electronically Signed by: ADITYA NUÑEZ MD On: 20142:28P PYLONETHRIISFEVER Result Amended on 2015-04-19 at 14:28:35. Previous status was [place]. PYLONETHRIISFEVER [id number]:25:00 Result Normal Range Units MPV 9.8 7.3-10.4 FL History of procedures No procedures recorded for this patient visit. Functional status Functional Status Finding Observation Time Hearing Prob Loc none :30 Vision Problems yes :30 Vision Correct Dev glasses :30 Ambulation Asst Dev none [id number]:30 Range of Motion full :53 Muscle Strength RUE 5 ROM full resist :53 Muscle Strength RLE 5 ROM full resist :53 Muscle Strength LUE 5 ROM full resist :53 Muscle Strength LLE 5 ROM full resist :53 Transfers assist x 1 :53 Ambulation in room :53 Balance steady :53 Bathing Assistance none :30 Dressing Assistance none : Toileting Assistance none : Transfer Assistance none : Decline Slf Care/Mob no :30 Phys Cond Stable yes :30 Nutrition normal :53 Diet regular :53 Oral Cavity moist and intact :53 Teeth [...] 90bpm no :53 Respirations > 20 no : Systolic <90 no : headache stiff neck no : WBC > 98611 no : WBC < 4000 no :53 Rapid Resp no :53 IV Site Location LFA :53 IV Type peripheral :53 IV Site Information existing : IV Site Start Attmpt 1 times :10 IV Site Alessio 20 :53 IV Site Appearance WNL : IV Site Color clear : IV Site Patent yes :53 Dressing Changed no (explain) Comment: clear dry intact : Dressing Type occlusive :53 Nursing Note Discharged to home, verbalized instructions. SL D/C'd and orders for Invanz faxed to [facility], Dose given prior to discharge. Family here [...] Yes :30 Repeats a Phrase 1 Yes :30 Follows Verbal Direc 3 Yes :30 Follows Written Dire 1 Yes :30 Write a Sentance 1 Yes :30 Draw an Object 1 Yes :30 Mini Mental Total 25 points :30 Less than 20 Phys not applicable :30 Learning Ability comprehends well :54 Neurological no :54 Psychological no :54 Physical no :54 Hearing no :54 Cut Out Stitcher Needed no :54 Sign Language no :54 [...] Type billfold/purse PNE Vac none Flu Vac 2013 Tetanus Vac 2011 Follow up appt already scheduled
--- OUTSIDE RECORDS SUMMARY | 2017-12-29 03:24 | XMS REPORT | Clinical Summary ---
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 Screening for malignant neoplasms of colon Pneumonia 486 Active Harinder Hernandez DO Pneumonia, organism unspecified Bacteremia 790.7 Active Harinder Hernandez DO Unspecified bacteremia Clostridium difficile colitis 008.45 Active Harinder Hernandez DO Intestinal infection due to clostridium difficile Abdominal pain, right lower quadrant 789.03 Active Harinder Hernandez DO Abdominal pain, right lower quadrant Needs vaccination for influenza V04.81 Active 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 Need for prophylactic vaccination and inoculation against influenza Need for prophylactic vaccination against streptococcus pneumoniae ( Pneumococcus) V03.82 Active 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 Need for prophylactic vaccination against Streptococcus pneumoniae [...] Take 1 tab po every hs LOVASTATIN 17701731298 Active Johny Dawkins MD Active AMLODIPINE BESYLATE 5 MG ORAL TABS Take 1 tab po daily AMLODIPINE BESYLATE 33753545290 Active Tawnya Pardo MA Active VENTOLIN HFA 108 (90 BASE) MCG/ACT AERS 2 -4 puffs four times a day PRN 2013 ALBUTEROL SULFATE 69142170027 No Longer Active Jeri Sosa RPT,RMA Active DILAUDID 2 MG ORAL TABS Take 1/2 tab po every 4 hours as needed for pain 2014 HYDROMORPHONE HCL 34823220061 Active Harinder Hernandez DO Active ACEBUTOLOL HCL 200 MG CAPS 1 cap in the morning and 2 caps in the evening ACEBUTOLOL HCL 89547864138 No Longer Active Harinder Hernandez DO Active CEFDINIR 300 MG ORAL CAPS take 1 cap po bid x 10 days CEFDINIR 11382110760 No Longer Active Harinder Hernandez DO Active AMITRIPTYLINE HCL 25 MG ORAL TABS 1 q hs prn AMITRIPTYLINE HCL 81382401819 Active Tawnya Pardo MA Active LOVASTATIN 40 MG TABS 1 pill by mouth nightly for cholesterol LOVASTATIN 43568281117 No Longer Active Nettie Newberry APRN Active NITROSTAT 0.4 MG SUBL 1 tab under tongueas needed for chest pain ( may take 3 total, 5 min apart, then call 911) NITROGLYCERIN 56177051280 No Longer Active Nettie Newberry APRN Active POTASSIUM CHLORIDE CR 10 MEQ CPCR 1 capsule by mouth daily 02/14 POTASSIUM CHLORIDE 37649093784 No Longer Active Nettie Newberry APRN Active TESSALON PERLES 100 MG CAP 1 to 2 tablets by mouth 3 times daily as needed for cough BENZONATATE 57420487556 No Longer Active Nettie Newberry APRN Active THEOPHYLLINE ER 200 MG ORAL [id number] Take 1 tab every 12 hours THEOPHYLLINE 21265190505 Active Tawnya Pardo MA Active PREDNISONE 20 MG TAB 2 po qd x 5 days PREDNISONE 96783480273 No Longer Active Jae Morgan MD Active AZITHROMYCIN 250 MG TABS 2 po qd x 1 day, then 1 po qd x 4 days AZITHROMYCIN 27115816703 No Longer Active Jae Morgan MD Active PREDNISONE 20 MG TAB 1 tab twice daily for 3 day, then one daily for three days PREDNISONE 23705333036 No Longer Active Jae Morgan MD Active MECLIZINE HCL 25 MG TAB 1 tablet three times daily for 3 days, then 1/2 tab three times daily for 3 days. MECLIZINE HCL 59862073879 Active Harinder Hernandez DO Active SINGULAIR 10 MG TABS 1 pill by mouth every evening for breathing. MONTELUKAST SODIUM 95951776872 Active Tawnya Pardo MA Active TYLENOL 325 MG TAB 3 by mouth q4h as needed ACETAMINOPHEN 37315813927 Active Harinder Hernandez DO Active POTASSIUM CHLORIDE ER 10 MEQ CR-TABS take 1 tab po daily POTASSIUM CHLORIDE 31967317571 No Longer Active Harinder Hernandez DO Active PREDNISONE 20 MG TAB 1 TID x 2 days, then 1 BID x 3 days, then 1 Daily x 3 days, then stop PREDNISONE 96847008397 No Longer Active Jillina Fradankl AIRPORT RAMP ATTENDANT Active LEVAQUIN 500 MG TAB 1 tablet by mouth daily LEVOFLOXACIN 38477804646 No Longer Active Jillina Frazell AIRPORT RAMP ATTENDANT Active NEURONTIN 300 MG CAP 1 cap by mouth three times daily for restless leg 06/22 GABAPENTIN 14269070901 No Longer Active Harinder Hernandez DO Active BENZONATATE 100 MG CAPS 1 cap po TID PRN BENZONATATE 20989901186 No Longer Active Harinder Hernandez DO Active MONTELUKAST SODIUM 10 MG TABS 1 tab po in the evening MONTELUKAST SODIUM 67199140646 No Longer Active Harinder Hernandez DO Active MUPIROCIN 2 % OINT apply to affected area BID x 14 days MUPIROCIN 97508118803 No Longer Active Harinder Hernandez DO Active TYLENOL EXTRA STRENGTH 500 MG TABS as needed ACETAMINOPHEN 60818090818 No Longer Active Harinder Hernandez DO Active PREDNISONE 10 MG TABS 1 tab po daily PREDNISONE 24349881009 No Longer Active Harinder Hernandez DO Active PREDNISONE 20 MG TAB 2 tabs daily for 4 days, 1 tab daily for 4 days, 1/2 tab daily for 4 days PREDNISONE 51839727930 No Longer Active Harinder Hernandez DO Active AZITHROMYCIN 250 MG TABS 2 po qd x 1 day, then 1 po qd x 4 days AZITHROMYCIN 44034116053 No Longer Active Harinder Hernandez DO Active PREDNISONE 20 MG TAB 3 tabs today, then 1 tab twice daily for 3 day, then one daily for three days PREDNISONE 74093708058 No Longer Active Harinder Hernandez DO Active NIFEDIAC CC 30 MG [id number] 1 tablet daily for raynaud's syndrome NIFEDIPINE 19263141086 No Longer Active Tawnya Pardo MA Active AMBIEN 10 MG TAB 1/2 tab by mouth at bedtime as needed for sleep ZOLPIDEM TARTRATE 88756984638 Active Harinder Hernandez DO Active CLONAZEPAM 1 MG TABS 1 tablet at bedtime for insomnia and restless legs 09/14 CLONAZEPAM 72560573272 Active Harinder Hernandez DO Active CLONAZEPAM 0.5 MG TABS 1 tab po daily CLONAZEPAM 47183209863 No Longer Active Harinder Hernandez DO Active PREDNISONE 10 MG TAB 1 tablet daily for COPD PREDNISONE 40401144176 Active Tawnya Pardo MA Active PROAIR HFA 108 (90 BASE) MCG/ACT AERS 2 puffs four times a day as needed 2012 ALBUTEROL SULFATE 52030006422 Active Tawnya Pardo MA Active FLOVENT HFA 110 MCG/ACT AERO 2 puffs inhaled b.i.d. FLUTICASONE PROPIONATE HFA 43953564372 Active Tawnya Pardo MA Active EPIPEN 0.3 MG/0.3ML URIEL DIRECTED EPINEPHRINE Active Demetrius JOHNSON Active ACIPHEX 20 MG TBEC 1 tab po daily RABEPRAZOLE SODIUM 77083244950 Active Tawnya Pardo MA Active TOPIRAMATE 25 MG TABS 1 tab po BID TOPIRAMATE 46507133912 Active Tawnya Pardo MA Active CLONAZEPAM 0.5 MG TABS 1 tab po daily CLONAZEPAM 0.5 MG TABS 712156 CLONAZEPAM Inactive PREDNISONE 20 MG TAB 3 tabs today, then 1 tab twice daily for 3 day, then one daily for three days PREDNISONE 20 MG TAB 300265 PREDNISONE Inactive PREDNISONE 20 MG TAB 2 tabs daily for 4 days, 1 tab daily for 4 days, 1/2 tab daily for 4 days PREDNISONE 20 MG TAB 917769 PREDNISONE Inactive PREDNISONE 10 MG TABS 1 tab po daily PREDNISONE 10 MG TABS 446526 PREDNISONE Inactive TYLENOL EXTRA STRENGTH 500 MG TABS as needed TYLENOL EXTRA STRENGTH 500 MG TABS 107538 ACETAMINOPHEN Inactive MUPIROCIN 2 % OINT apply to affected area BID x 14 days MUPIROCIN 2 % OINT 814197 MUPIROCIN Inactive MONTELUKAST SODIUM 10 MG TABS 1 tab po in the evening MONTELUKAST SODIUM 10 MG TABS 20010818 MONTELUKAST SODIUM Inactive BENZONATATE 100 MG CAPS 1 cap po TID PRN BENZONATATE 100 MG CAPS 762386 BENZONATATE Inactive NEURONTIN 300 MG CAP 1 cap by mouth three times daily for restless leg 06/22 NEURONTIN 300 MG CAP 953216 GABAPENTIN Inactive LEVAQUIN 500 MG TAB 1 tablet by mouth daily LEVAQUIN 500 MG TAB 838206 LEVOFLOXACIN Inactive PREDNISONE 20 MG TAB 1 TID x 2 days, then 1 BID x 3 days, then 1 Daily x 3 days, then stop PREDNISONE 20 MG TAB 266700 PREDNISONE Inactive POTASSIUM CHLORIDE ER 10 MEQ CR-TABS take 1 tab po daily POTASSIUM CHLORIDE ER 10 MEQ CR-TABS POTASSIUM CHLORIDE Inactive PREDNISONE 20 MG TAB 1 tab twice daily for 3 day, then one daily for three days PREDNISONE 20 MG TAB 666917 PREDNISONE Inactive TESSALON PERLES 100 MG CAP 1 to 2 tablets by mouth 3 times daily as needed for cough TESSALON PERLES 100 MG CAP 235641 BENZONATATE Inactive POTASSIUM CHLORIDE CR 10 MEQ [...] nightly for cholesterol LOVASTATIN 40 MG TABS 023296 LOVASTATIN Inactive CEFDINIR 300 MG ORAL CAPS take 1 cap po bid x 10 days CEFDINIR 300 MG ORAL CAPS 708746 CEFDINIR Inactive ACEBUTOLOL HCL 200 MG CAPS 1 cap in the morning and 2 caps in the evening ACEBUTOLOL HCL 200 MG CAPS 619839 ACEBUTOLOL HCL Inactive VENTOLIN HFA 108 (90 BASE) MCG/ACT AERS 2 -4 puffs four times a day PRN 2013 VENTOLIN HFA 108 (90 BASE) MCG/ACT AERS ALBUTEROL SULFATE Inactive AZITHROMYCIN 250 MG TABS 2 po qd x 1 day, then 1 po qd x 4 days AZITHROMYCIN 250 MG TABS 9583484 AZITHROMYCIN Inactive AZITHROMYCIN 250 MG TABS 2 po qd x 1 day, then 1 po qd x 4 days AZITHROMYCIN 250 MG TABS 6187517 AZITHROMYCIN Inactive PREDNISONE 20 MG TAB 2 po qd x 5 days PREDNISONE 20 MG TAB 267894 PREDNISONE Inactive Vital Signs Date Name Value [...] Panel - Chemistry sodium, serum 138 mmol/L 697-890 6769/09/24 potassium, serum 3.5 mmol/L 3.5-5.2 chloride, serum [...] 142-424 Encounters Code Encounter Date Provider Facility CPT-32311 Level 3 Est. Patient 12:14:34 CDT Harinder Cr [facility] CPT-33568 Level 3 Est. Patient 13:47:15 CDT Harinder Cr [facility] CPT-74555 Level 3 Est. Patient 14:08:24 CDT Harinder Cr [facility] CPT-68323 Level 3 Est. Patient 10:07:15 CDT Harinder Hernandez [facility] CPT-63776 Level 3 Est. Patient 10:06:59 CDT Harinder Cr [facility] CPT-42256 Level 3 Est. Patient 15:53:29 CDT Jae Morgan MD [facility] CPT-14201 Level 3 Est. Patient 17:19:04 CDT Harinder Cr David [facility] CPT-95547 Level 3 Est. Patient 11:13:01 CDT Harinder Hernandez [facility] CPT-62890 Level 3 Est. Patient 09:03:58 CDT Harinder Hernandez [facility] CPT-96509 Level 3 Est. 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 Patient 09:35:49 NAPPING MACHINE OPERATOR Harinder Hernandez [facility] CPT-19395 Level 3 Est. Patient 09:29:37 NAPPING MACHINE OPERATOR Harinder Cr David [facility] CPT-05291 Level 3 Est. Patient 15:51:07 CDT Harinder Hernandez [facility] CPT-32672 Level 3 Est. Patient 18:13:13 CDT Harinder Cr [facility] CPT-96742 Level 3 Est. Patient 10:44:19 CDT Harinder Hernandez [facility] CPT-15207 Level 4 Est. Patient 10:07:19 NAPPING MACHINE OPERATOR Harinder Cr [facility] CPT-71399 Level 3 Est. Patient 15:59:32 NAPPING MACHINE OPERATOR Harinder Cr [facility] Procedures Code Procedure Name Date Entry Date Standard Description CPT-71572 Immunization Each Additional Inj 17:38:04 CDT CPT-64714 Immunization Single Admin 17:38:04 CDT CPT-36599 Prevnar 13 17:38:04 CDT CPT-43669 Fluzone Quadrivalent preservative free (>=3yrs.) 17:38: 04 CDT CPT-39669 No Charge Offi Visit 11:14:03 CDT CPT-14905 Chest 2V Frontal and Lat 14:00:18 CDT CPT-OV Office Visit 16:10:28 CDT CPT-JTINJ Asp/Joint Injection 09:03:57 CDT CPT-Cryo Cryotherapy 09:35:49 NAPPING MACHINE OPERATOR CPT-JTINJ Asp/Joint Injection 09:34:45 NAPPING MACHINE OPERATOR CPT-J2930 Solu Medrol 125 mg (Methyl Prednisolone Sodium Succinate) 20:37:27 CDT CPT-05330 Abx/Therapy Injection 20:37:27 CDT CPT-27869 Port a cath flush 08:15:51 CDT CPT-31818 Port a cath flush 09:54:16 CDT CPT-76836 Port a cath flush 09:38:02 CDT CPT-04855 Port a cath flush 11:00:27 NAPPING MACHINE OPERATOR
--- OUTSIDE RECORDS SUMMARY | 2017-12-29 03:26 | XMS REPORT | Clinical Summary ---
Author Author Admin, QIE Organization [facility] [employer] Address Unknown Phone Unavailable Allergies, Adverse Reactions, [...] then one daily for three days PREDNISONE [id number] No Longer Active Harinder Hernandez DO Active PREDNISONE 20 MG TAB 1 tablet twice daily for 2 days, then 1 tablet once daily for 2 days PREDNISONE 74662702910 No Longer Active Harinder Hernandez DO Active ASMANEX 120 METERED DOSES 220 MCG/INH INH AEPB 2 puffs orally twice daily MOMETASONE FUROATE 03432320269 Active Jeri Sosa RPT,RMA Active NIFEDIPINE ER 30 MG ORAL [id number] 1 daily NIFEDIPINE 00722290446 Active Tawnya Pardo MA Active TOPIRAMATE 25 MG TABS 1 tab po BID TOPIRAMATE 36627955904 No Longer Active Nettie Newberry APRN Active AMLODIPINE BESYLATE 5 MG ORAL TABS Take 1 tab po daily AMLODIPINE BESYLATE 26400411348 No Longer Active Nettie Newberry APRN Active MECLIZINE HCL 25 MG TAB 1 tablet three times daily for 3 days, then 1/2 tab three times daily for 3 days. MECLIZINE HCL 99850635238 No Longer Active Nettie Newberry APRN Active AMITRIPTYLINE HCL 25 MG ORAL TABS 1 q hs prn AMITRIPTYLINE HCL 33973266327 No Longer Active Nettie Newberry APRN Active DILAUDID 2 MG ORAL TABS Take 1/2 tab po every 4 hours as needed for pain 2014 HYDROMORPHONE HCL 27714153718 No Longer Active Nettie Newberry APRN Active CLOPIDOGREL BISULFATE 75 MG ORAL TABS 1 tab by mouth once daily CLOPIDOGREL BISULFATE 19508134900 Active Tawnya Pardo MA Active ATORVASTATIN CALCIUM 10 MG ORAL TABS 1 at bedtime ATORVASTATIN CALCIUM 06448665762 Active Tawnya Pardo MA Active LOVASTATIN 40 MG ORAL TABS Take 1 tab po every hs LOVASTATIN 98349575820 No Longer Active Harinder Hernandez DO Active PREDNISONE 20 MG TAB 2 tabs daily for 4 days, 1 tab daily for 4 days, 1/2 tab daily for 4 days PREDNISONE 99689347900 No Longer Active Harinder Hernandez DO Active LEVAQUIN 500 MG ORAL TABS Take 1 tab po daily x 8 days LEVOFLOXACIN 58012636632 No Longer Active Harinder Hernandez DO Active VENTOLIN HFA 108 (90 BASE) MCG/ACT AERS 2 -4 puffs four times a day PRN 2013 ALBUTEROL SULFATE 70780266306 No Longer Active Jeri Sosa RPT,RMA Active ACEBUTOLOL HCL 200 MG CAPS 1 cap in the morning and 2 caps in the evening ACEBUTOLOL HCL 21608312894 No Longer Active Harinder Hernandez DO Active CEFDINIR 300 MG ORAL CAPS take 1 cap po bid x 10 days CEFDINIR 64094102694 No Longer Active Harinder Hernandez DO Active LOVASTATIN 40 MG TABS 1 pill by mouth nightly for cholesterol LOVASTATIN 80768895056 No Longer Active Nettie Newberry APRN Active NITROSTAT 0.4 MG SUBL 1 tab under tongueas needed for chest pain ( may take 3 total, 5 min apart, then call 911) NITROGLYCERIN 59679540064 No Longer Active Nettie Newberry APRN Active POTASSIUM CHLORIDE CR 10 MEQ CPCR 1 capsule by mouth daily 02/14 POTASSIUM CHLORIDE 06173894825 No Longer Active Nettie Newberry APRN Active TESSALON PERLES 100 MG CAP 1 to 2 tablets by mouth 3 times daily as needed for cough BENZONATATE 18305682148 No Longer Active Nettie Newberry APRN Active THEOPHYLLINE ER 200 MG ORAL [id number] Take 1 tab every 12 hours THEOPHYLLINE 97094875314 Active Tawnya Pardo MA Active PREDNISONE 20 MG TAB 2 po qd x 5 days PREDNISONE 99942027576 No Longer Active Jae Morgan MD Active AZITHROMYCIN 250 MG TABS 2 po qd x 1 day, then 1 po qd x 4 days AZITHROMYCIN 58256947225 No Longer Active Jae Morgan MD Active PREDNISONE 20 MG TAB 1 tab twice daily for 3 day, then one daily for three days PREDNISONE 76681014828 No Longer Active Jae Morgan MD Active SINGULAIR 10 MG TABS 1 pill by mouth every evening for breathing. MONTELUKAST SODIUM 74846146427 Active Tawnya Pardo MA Active TYLENOL 325 MG TAB 3 by mouth q4h as needed ACETAMINOPHEN 78368101895 Active Harinder Hernandez DO Active POTASSIUM CHLORIDE ER 10 MEQ CR-TABS take 1 tab po daily POTASSIUM CHLORIDE 68477523916 No Longer Active Harinder Hernandez DO Active PREDNISONE 20 MG TAB 1 TID x 2 days, then 1 BID x 3 days, then 1 Daily x 3 days, then stop PREDNISONE 16782703817 No Longer Active Jillina Frazell [employer] Active LEVAQUIN 500 MG TAB 1 tablet by mouth daily LEVOFLOXACIN 74916709710 No Longer Active Jillina Frazell [employer] Active NEURONTIN 300 MG CAP 1 cap by mouth three times daily for restless leg 06/22 GABAPENTIN 22159790098 No Longer Active Harinder Hernandez DO Active BENZONATATE 100 MG CAPS 1 cap po TID PRN BENZONATATE 64817994152 No Longer Active Harinder Hernandez DO Active MONTELUKAST SODIUM 10 MG TABS 1 tab po in the evening MONTELUKAST SODIUM 36797622374 No Longer Active Harinder Hernandez DO Active MUPIROCIN 2 % OINT apply to affected area BID x 14 days MUPIROCIN 51025101394 No Longer Active Harinder Hernandez DO Active TYLENOL EXTRA STRENGTH 500 MG TABS as needed ACETAMINOPHEN 31973761564 No Longer Active Harinder Hernandez DO Active PREDNISONE 10 MG TABS 1 tab po daily PREDNISONE 81458193231 No Longer Active Harinder Hernandez DO Active PREDNISONE 20 MG TAB 2 tabs daily for 4 days, 1 tab daily for 4 days, 1/2 tab daily for 4 days PREDNISONE 95576057060 No Longer Active Harinder Hernandez DO Active AZITHROMYCIN 250 MG TABS 2 po qd x 1 day, then 1 po qd x 4 days AZITHROMYCIN 69899331159 No Longer Active Harinder Hernandez DO Active PREDNISONE 20 MG TAB 3 tabs today, then 1 tab twice daily for 3 day, then one daily for three days PREDNISONE 27670315315 No Longer Active Harinder Hernandez DO Active NIFEDIAC CC 30 MG [id number] 1 tablet daily for raynaud's syndrome NIFEDIPINE 54423223303 No Longer Active Tawnya Pardo MA Active AMBIEN 10 MG TAB 1/2 tab by mouth at bedtime as needed for sleep ZOLPIDEM TARTRATE 45233326937 Active Harinder Hernandez DO Active CLONAZEPAM 1 MG TABS 1 tablet at bedtime for insomnia and restless legs 09/14 CLONAZEPAM 02602602754 Active Tawnya Pardo MA Active CLONAZEPAM 0.5 MG TABS 1 tab po daily CLONAZEPAM 52899653444 No Longer Active Harinder Hernandez DO Active PREDNISONE 10 MG TAB 1 tablet daily for COPD PREDNISONE 17892902802 Active Tawnya Pardo MA Active PROAIR HFA 108 (90 BASE) MCG/ACT AERS 2 puffs four times a day as needed 2012 ALBUTEROL SULFATE 72810964916 Active Tawnya Pardo MA Active FLOVENT HFA 110 MCG/ACT AERO 2 puffs inhaled b.i.d. FLUTICASONE PROPIONATE HFA 43216811937 Active Tawnya Pardo MA Active EPIPEN 0.3 MG/0.3ML URIEL DIRECTED EPINEPHRINE Active Jeri Sosa RPT,RMA Active ACIPHEX 20 MG TBEC 1 tab po daily RABEPRAZOLE SODIUM 06727773955 Active Tawnya Pardo MA Active CLONAZEPAM 0.5 MG TABS 1 tab po daily CLONAZEPAM 0.5 MG TABS 981995 CLONAZEPAM Inactive PREDNISONE 20 MG TAB 3 tabs today, then 1 tab twice daily for 3 day, then one daily for three days PREDNISONE 20 MG TAB 633982 PREDNISONE Inactive PREDNISONE 20 MG TAB 2 tabs daily for 4 days, 1 tab daily for 4 days, 1/2 tab daily for 4 days PREDNISONE 20 MG TAB 766641 PREDNISONE Inactive PREDNISONE 10 MG TABS 1 tab po daily PREDNISONE 10 MG TABS 597174 PREDNISONE Inactive TYLENOL EXTRA STRENGTH 500 MG TABS as needed TYLENOL EXTRA STRENGTH 500 MG TABS 292776 ACETAMINOPHEN Inactive MUPIROCIN 2 % OINT apply to affected area BID x 14 days MUPIROCIN 2 % OINT 409309 MUPIROCIN Inactive MONTELUKAST SODIUM 10 MG TABS 1 tab po in the evening MONTELUKAST SODIUM 10 MG TABS 403785 MONTELUKAST SODIUM Inactive BENZONATATE 100 MG CAPS 1 cap po TID PRN BENZONATATE 100 MG CAPS 968491 BENZONATATE Inactive NEURONTIN 300 MG CAP 1 cap by mouth three times daily for restless leg 06/22 NEURONTIN 300 MG CAP 062484 GABAPENTIN Inactive LEVAQUIN 500 MG TAB 1 tablet by mouth daily LEVAQUIN 500 MG TAB 204047 LEVOFLOXACIN Inactive PREDNISONE 20 MG TAB 1 TID x 2 days, then 1 BID x 3 days, then 1 Daily x 3 days, then stop PREDNISONE 20 MG TAB 309307 PREDNISONE Inactive POTASSIUM CHLORIDE ER 10 MEQ CR-TABS take 1 tab po daily POTASSIUM CHLORIDE ER 10 MEQ CR-TABS POTASSIUM CHLORIDE Inactive PREDNISONE 20 MG TAB 1 tab twice daily for 3 day, then one daily for three days PREDNISONE 20 MG TAB 067377 PREDNISONE Inactive TESSALON PERLES 100 MG CAP 1 to 2 tablets by mouth 3 times daily as needed for cough TESSALON PERLES 100 MG CAP 826674 BENZONATATE Inactive POTASSIUM CHLORIDE CR 10 MEQ [...] nightly for cholesterol LOVASTATIN 40 MG TABS 071531 LOVASTATIN Inactive CEFDINIR 300 MG ORAL CAPS take 1 cap po bid x 10 days CEFDINIR 300 MG ORAL CAPS 011738 CEFDINIR Inactive ACEBUTOLOL HCL 200 MG CAPS 1 cap in the morning and 2 caps in the evening ACEBUTOLOL HCL 200 MG CAPS 615347 ACEBUTOLOL HCL Inactive VENTOLIN HFA 108 (90 BASE) MCG/ACT AERS 2 -4 puffs four times a day PRN 2013 VENTOLIN HFA 108 (90 BASE) MCG/ACT AERS ALBUTEROL SULFATE Inactive LEVAQUIN 500 MG ORAL TABS Take 1 tab po daily x 8 days LEVAQUIN 500 MG ORAL TABS 033854 LEVOFLOXACIN Inactive PREDNISONE 20 MG TAB 2 tabs daily for 4 days, 1 tab daily for 4 days, 1/2 tab daily for 4 days PREDNISONE 20 MG TAB 603698 PREDNISONE Inactive LOVASTATIN 40 MG ORAL TABS Take 1 tab po every hs LOVASTATIN 40 MG ORAL TABS 314893 LOVASTATIN Inactive DILAUDID 2 MG ORAL TABS Take 1/2 tab po every 4 hours as needed for pain 2014 DILAUDID 2 MG ORAL TABS 212765 HYDROMORPHONE HCL Inactive AMITRIPTYLINE HCL 25 MG ORAL TABS 1 q hs prn AMITRIPTYLINE HCL 25 MG ORAL TABS 609764 AMITRIPTYLINE HCL Inactive MECLIZINE HCL 25 MG TAB 1 tablet three times daily for 3 days, then 1/2 tab three times daily for 3 days. MECLIZINE HCL 25 MG TAB 606500 MECLIZINE HCL Inactive AMLODIPINE BESYLATE 5 MG ORAL TABS Take 1 tab po daily AMLODIPINE BESYLATE 5 MG ORAL TABS 200316 AMLODIPINE BESYLATE Inactive TOPIRAMATE 25 MG TABS 1 tab po BID TOPIRAMATE 25 MG TABS 612462 TOPIRAMATE Inactive PREDNISONE 20 MG TAB 1 tablet twice daily for 2 days, then 1 tablet once daily for 2 days PREDNISONE 20 MG TAB 904373 PREDNISONE Inactive PREDNISONE 20 MG TAB 1 tab twice daily for 3 day, then one daily for three days PREDNISONE 20 MG TAB 165123 PREDNISONE Inactive AZITHROMYCIN 250 MG TABS 2 po qd x 1 day, then 1 po qd x 4 days AZITHROMYCIN 250 MG TABS 7158899 AZITHROMYCIN Inactive AZITHROMYCIN 250 MG TABS 2 po qd x 1 day, then 1 po qd x 4 days AZITHROMYCIN 250 MG TABS 6279464 AZITHROMYCIN Inactive PREDNISONE 20 MG TAB 2 po qd x 5 days PREDNISONE 20 MG TAB 233014 PREDNISONE Inactive Vital Signs Date Name Value [...] Panel - Chemistry sodium, serum 138 mmol/L 351-806 6969/09/24 potassium, serum 3.5 mmol/L 3.5-5.2 chloride, serum [...] Magnesium - Chemistry cholesterol, serum 180 mg/dL 609-011 9968/08/08 triglyceride, serum, fasting 92 mg/dL 30-200 HDL cholesterol, serum 66 mg/dL 32-96 LDL cholesterol, serum 96 mg/dL 0-130 sodium, serum 142 mmol/L 872-117 2013/08/08 carbon dioxide, venous blood 27.4 mmol/L 21.0-32.0 [...] 10.0-20.0 Encounters Code Encounter Date Provider Facility CPT-52447 Level 3 Est. Patient 09:58:[address] [facility] CPT-09370 Level 3 Est. Patient 12:37:[address] [facility] CPT-54373 Level 3 Est. Patient 18:37:[address] [facility] CPT-61713 Level 4 Est. Patient 11:15:54 CDT Nettie Newberry [facility] CPT-00146 Level 3 Est. Patient 16:42:[address] [facility] CPT-60868 Level 3 Est. Patient 15:03:[address] [facility] CPT-64704 Level 3 Est. Patient 15:03:[address] [facility] CPT-42954 Level 3 Est. Patient 12:14:34 CDT Harinder Cr [facility] CPT-99614 Level 3 Est. Patient 13:47:15 CDT [facility] CPT-61313 Level 3 Est. Patient 14:08:24 CDT Harinder [facility] CPT-12461 Level 3 Est. Patient 10:07:15 CDT Harinder [facility] CPT-67677 Level 3 Est. Patient 10:06:59 CDT [facility] CPT-12480 Level 3 Est. Patient 15:53:29 CDT Jae Morgan MD [facility] CPT-09493 Level 3 Est. Patient 17:19:04 CDT Harinder Hernandez [facility] CPT-71494 Level 3 Est. Patient 11:13:01 CDT Harinder Hernandez [facility] CPT-16497 Level 3 Est. Patient 09:03:58 CDT Harinder Hernandez [facility] CPT-39888 Level 3 Est. Patient 14:46:45 [employer] Harinder Hernandez [facility] CPT-05689 Level 3 Est. Patient 09:35:49 [employer] Harinder Hernandez [facility] CPT-38460 Level 3 Est. Patient 09:29:37 [employer] Harinder [facility] CPT-47853 Level 3 Est. Patient 15:51:07 CDT Harinder Hernandez [facility] CPT-49203 Level 3 Est. Patient 18:13:13 CDT Harinder Cr [facility] CPT-41607 Level 3 Est. Patient 10:44:19 CDT Harinder Cr [facility] CPT-46847 Level 4 Est. Patient 10:07:19 [employer] Harinder [facility] CPT-48697 Level 3 Est. Patient 15:59:32 [employer] Harinder [facility] Procedures Code Procedure Name Date Entry Date Standard Description CPT-TCMM Transitional Care Mgmt-Moderate 11:33:57 CDT CPT-93150 No Charge Offi Visit 14:11:29 CDT CPT-88213 Magnesium - LAB USE ONLY 10:45:44 CDT CPT-72423 Lipid - LAB USE ONLY 10:45:44 CDT CPT-35711 CBC - LAB USE ONLY 10:45:44 CDT CPT-45148 Venipuncture Draw Fee 10:45:43 CDT CPT-85969 Venipuncture Draw Fee 18:21:27 CDT CPT-JTINJ Asp/Joint Injection 18:38:04 CDT CPT-79366 Immunization Each Additional Inj 17:38:04 CDT CPT-21394 Immunization Single Admin 17:38:04 CDT CPT-71043 Prevnar 13 17:38:04 CDT CPT-39114 Fluzone Quadrivalent preservative free (>=3yrs.) 17:38: 04 CDT CPT-71746 No Charge Offi Visit 11:14:03 CDT CPT-42709 Chest 2V Frontal and Lat 14:00:18 CDT CPT-OV Office Visit 16:10:28 CDT CPT-JTINJ Asp/Joint Injection 09:03:57 CDT CPT-Cryo Cryotherapy 09:35:49 [employer] CPT-JTINJ Asp/Joint Injection 09:34:45 [employer] CPT-J2930 Solu Medrol 125 mg (Methyl Prednisolone Sodium Succinate) 20:37:27 CDT CPT-32672 Abx/Therapy Injection 20:37:27 CDT CPT-08190 Port a cath flush 08:15:51 CDT CPT-81885 Port a cath flush 09:54:16 CDT CPT-07065 Port a cath flush 09:38:02 CDT CPT-17628 Port a cath flush 11:00:27 SUPPORT TEAM [employer]OC
--- OUTSIDE RECORDS SUMMARY | 2017-12-29 03:27 | XMS REPORT | Clinical Summary ---
Author Author Admin, QIE Organization [facility] Address Unknown Phone Unavailable Allergies, Adverse [...] Viral upper respiratory tract infection 465.9 Active Hrainder Shaye Hernandez DO Acute upper respiratory infections [...] 1 tablet by mouth days 2-3 PREDNISONE 41188806761 Active Meenu Alejo LPN Active NITROSTAT 0.4 MG SUBLINGUAL TABLET SUBLINGUAL 1 tab SL q5min PRN chest pain NITROGLYCERIN 94020597669 Active Meenu Alejo LPN Active THEOPHYLLINE ER 300 MG ORAL TABLET EXTENDED RELEASE 12 HOUR 1 po BID THEOPHYLLINE 03692548610 Active Kortney Mccain Active POTASSIUM CHLORIDE ER 20 MEQ ORAL TABLET EXTENDED RELEASE 1 po q day POTASSIUM CHLORIDE 28538006055 Active Kortney Mccain Active POTASSIUM CHLORIDE 20 MEQ ORAL PACKET 1 tab po q day POTASSIUM CHLORIDE 98678365316 No Longer Active Kortney Mccain Active POTASSIUM CHLORIDE ER 10 MEQ ORAL CAPSULE EXTENDED RELEASE 1 capsule BID 2016 POTASSIUM CHLORIDE 14223704104 No Longer Active Kortney Mccain Active LASIX 20 MG ORAL TABLET 1 tablet by mouth every morning FUROSEMIDE 71358031206 No Longer Active Kortney Mccain Active SPIRONOLACTONE 25 MG ORAL TABLET 1 tablet by mouth daily SPIRONOLACTONE 94034114205 Active Kortney Mccain Active FLUOXETINE HCL 10 MG ORAL CAPSULE 1 po qd for depression/anxiety FLUOXETINE HCL 89269364653 Active Harinder Hernandez DO Active VOLTAREN 1 % TRANSDERMAL GEL apply q 6-8 hour to left arm as needed for pain DICLOFENAC SODIUM 21140377471 Active Kortney Mccain Active ALBUTEROL SULFATE (2.5 MG/3ML) 0.083% INHALATION NEBULIZATION SOLUTION 1 vial neb q 4hrs for severe asthma. 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 NIFEDIPINE 21091039108 Active Kortney Mccain Active AMLODIPINE BESYLATE 5 MG ORAL TABLET 1 tablet by mouth daily 2016 AMLODIPINE BESYLATE 29961194873 No Longer Active Harinder Hernandez DO Active TOPAMAX 25 MG ORAL TABLET 1 tab po BID TOPIRAMATE 82319796982 Active Kortney Mccain Active FLUTICASONE PROPIONATE 50 MCG/ACT NASAL SUSPENSION 2 sprays per nostril daily PRN Allergies FLUTICASONE PROPIONATE 74684598402 Active Meenu Alejo LPN Active NIFEDIPINE ER 30 MG ORAL TABLET EXTENDED RELEASE 24 HOUR 1 daily NIFEDIPINE 10940170235 No Longer Active Harinder Hernandez DO Active FLOVENT HFA 110 MCG/ACT INHALATION AEROSOL 2 puffs inhaled b.i.d. FLUTICASONE PROPIONATE HFA 84595304894 Active Harinder Hernandez DO Active EPIPEN 2-BRUNA 0.3 MG/0.3ML INJECTION SOLUTION AUTO-INJECTOR 1 INJ NEEDED EPINEPHRINE 91618325076 Active Kortney Mccain Active PREDNISONE 20 MG ORAL TABLET 1 tab twice daily for 3 day, then one daily for three days PREDNISONE 70421099686 No Longer Active Harinder Hernandez DO Active PREDNISONE 20 MG ORAL TABLET 1 tablet twice daily for 2 days, then 1 tablet once daily for 2 days PREDNISONE 29132058504 No Longer Active Harinder Hernandez DO Active ASMANEX 120 METERED DOSES 220 MCG/INH INHALATION AEROSOL POWDER BREATH ACTIVATED 2 puffs orally twice daily MOMETASONE FUROATE 35330335971 Active Jeri Sosa LPN Active TOPIRAMATE 25 MG ORAL TABLET 1 tab po BID TOPIRAMATE 08095293165 No Longer Active Nettie Newberry APRN Active AMLODIPINE BESYLATE 5 MG ORAL TABLET Take 1 tab po daily AMLODIPINE BESYLATE 47982077147 No Longer Active Nettie Newberry APRN Active MECLIZINE HCL 25 MG ORAL TABLET 1 tablet three times daily for 3 days, then 1/ 2 tab three times daily for 3 days. MECLIZINE HCL 45363043978 No Longer Active Nettie Newberry APRN Active AMITRIPTYLINE HCL 25 MG ORAL TABLET 1 q hs prn AMITRIPTYLINE HCL 05137480776 No Longer Active Nettie Newberry APRN Active DILAUDID 2 MG ORAL TABLET Take 1/2 tab po every 4 hours as needed for pain HYDROMORPHONE HCL 73157498823 No Longer Active Nettie Newberry APRN Active CLOPIDOGREL BISULFATE 75 MG ORAL TABLET 1 tab by mouth once daily CLOPIDOGREL BISULFATE 19864002098 Active Meenu Alejo LPN Active ATORVASTATIN CALCIUM 10 MG ORAL TABLET 1 at bedtime ATORVASTATIN CALCIUM 01623754049 Active Kortney Mccain Active LOVASTATIN 40 MG ORAL TABLET Take 1 tab po every hs LOVASTATIN 39781883929 No Longer Active Harinder Hernandez DO Active PREDNISONE 20 MG ORAL TABLET 2 tabs daily for 4 days, 1 tab daily for 4 days, 1/2 tab daily for 4 days PREDNISONE 88578760932 No Longer Active Harinder Hernandez DO Active LEVAQUIN 500 MG ORAL TABLET Take 1 tab po daily x 8 days LEVOFLOXACIN 15449735843 No Longer Active Harinder Hernandez DO Active VENTOLIN HFA 108 (90 Base) MCG/ACT INHALATION AEROSOL SOLUTION 2 -4 puffs four times a day PRN ALBUTEROL SULFATE 91660658146 No Longer Active Jeri Sosa LPN Active ACEBUTOLOL HCL 200 MG ORAL CAPSULE 1 cap in the morning and 2 caps in the evening ACEBUTOLOL HCL 03644169185 No Longer Active Harinder Hernandez DO Active CEFDINIR 300 MG ORAL CAPSULE take 1 cap po bid x 10 days CEFDINIR 43252519429 No Longer Active Harinder Hernandez DO Active LOVASTATIN 40 MG ORAL TABLET 1 pill by mouth nightly for cholesterol LOVASTATIN 65674066410 No Longer Active Nettie Newberry APRN Active NITROSTAT 0.4 MG SUBLINGUAL TABLET SUBLINGUAL 1 tab under tongueas needed for chest pain ( may take 3 total, 5 min apart, then call 911) NITROGLYCERIN 82206704079 No Longer Active Nettie Newberry APRN Active POTASSIUM CHLORIDE ER 10 MEQ ORAL CAPSULE EXTENDED RELEASE 1 capsule by mouth daily POTASSIUM CHLORIDE 24004780171 No Longer Active Nettie Newberry APRN Active TESSALON PERLES 100 MG ORAL CAPSULE 1 to 2 tablets by mouth 3 times daily as needed for cough BENZONATATE 08866409966 No Longer Active Nettie Newberry APRN Active PREDNISONE 20 MG ORAL TABLET 2 po qd x 5 days PREDNISONE 29428998372 No Longer Active Jae Morgan MD Active AZITHROMYCIN 250 MG ORAL TABLET 2 po qd x 1 day, then 1 po qd x 4 days 12/30 AZITHROMYCIN 88646688650 No Longer Active Jae Morgan MD Active PREDNISONE 20 MG ORAL TABLET 1 tab twice daily for 3 day, then one daily for three days PREDNISONE 34616756105 No Longer Active Jae Morgan MD Active SINGULAIR 10 MG ORAL TABLET 1 pill by mouth every evening for breathing. 2014 MONTELUKAST SODIUM 84078382125 Active Meenu Villarrealnader JOELN Active TYLENOL 325 MG ORAL TABLET 3 by mouth q4h as needed ACETAMINOPHEN 29063133958 Active Harinder Hernandez DO Active POTASSIUM CHLORIDE ER 10 MEQ ORAL TABLET EXTENDED RELEASE take 1 tab po daily POTASSIUM CHLORIDE 43784950503 No Longer Active Harinder Hernandez DO Active PREDNISONE 20 MG ORAL TABLET 1 TID x 2 days, then 1 BID x 3 days, then 1 Daily x 3 days, then stop PREDNISONE 60821457185 No Longer Active Jillina Frazell [employer]PLICATION DEVELOPER Active LEVAQUIN 500 MG ORAL TABLET 1 tablet by mouth daily LEVOFLOXACIN 04255246279 No Longer Active Jillina Frazell [employer]LE [employer]CIAL APPLICATION DEVELOPER Active NEURONTIN 300 MG ORAL CAPSULE 1 cap by mouth three times daily for restless leg GABAPENTIN 62067114437 No Longer Active Harinder Hernandez DO Active BENZONATATE 100 MG ORAL CAPSULE 1 cap po TID PRN BENZONATATE 60702428648 No Longer Active Harinder Hernandez DO Active MONTELUKAST SODIUM 10 MG ORAL TABLET 1 tab po in the evening 2014 MONTELUKAST SODIUM 17304231817 No Longer Active Harinder Hernandez DO Active MUPIROCIN 2 % EXTERNAL OINTMENT apply to affected area BID x 14 days MUPIROCIN 72812716555 No Longer Active Harinedr Hernandez DO Active TYLENOL EXTRA STRENGTH 500 MG ORAL TABLET as needed ACETAMINOPHEN 00834316336 No Longer Active Harinder Hernandez DO Active PREDNISONE 10 MG ORAL TABLET 1 tab po daily PREDNISONE 19835323300 No Longer Active Harinder Hernandez DO Active PREDNISONE 20 MG ORAL TABLET 2 tabs daily for 4 days, 1 tab daily for 4 days, 1/2 tab daily for 4 days PREDNISONE 41216905863 No Longer Active Harinder Hernandez DO Active AZITHROMYCIN 250 MG ORAL TABLET 2 po qd x 1 day, then 1 po qd x 4 days 04/06 AZITHROMYCIN 89404208849 No Longer Active Harinder Hernandez DO Active PREDNISONE 20 MG ORAL TABLET 3 tabs today, then 1 tab twice daily for 3 day, then one daily for three days PREDNISONE 39360255720 No Longer Active Harinder Hernandez DO Active NIFEDIAC CC 30 MG ORAL TABLET EXTENDED RELEASE 24 HOUR 1 tablet daily for raynaud's syndrome NIFEDIPINE 42350532055 No Longer Active Tawnya Pardo MA Active AMBIEN 10 MG ORAL TABLET 1/2 tab by mouth at bedtime as needed for sleep 2013 ZOLPIDEM TARTRATE 89258207025 Active Meenu Alejo LPN Active CLONAZEPAM 1 MG ORAL TABLET 1 tablet at bedtime for insomnia and restless legs CLONAZEPAM 82991119228 Active Harinder Hernandez DO Active CLONAZEPAM 0.5 MG ORAL TABLET 1 tab po daily CLONAZEPAM 57380524338 No Longer Active Harinder Hernandez DO Active PREDNISONE 10 MG ORAL TABLET 1 tablet daily for COPD PREDNISONE 76924902530 Active Kortney Mccain Active PROAIR HFA 108 (90 Base) MCG/ACT INHALATION AEROSOL SOLUTION 2 puffs four times a day as needed ALBUTEROL SULFATE 03048512996 Active Harinder Hernandez DO Active FLOVENT HFA 110 MCG/ACT INHALATION AEROSOL 2 puffs inhaled b.i.d. FLUTICASONE PROPIONATE HFA 94647500488 Active Kortney Mccain Active ACIPHEX 20 MG ORAL TABLET DELAYED RELEASE 1 tab po daily RABEPRAZOLE SODIUM 77737671859 Active Kaylah Newberry Active CLONAZEPAM 0.5 MG ORAL TABLET 1 tab po daily CLONAZEPAM 0.5 MG ORAL TABLET 225628 CLONAZEPAM Inactive PREDNISONE 20 MG ORAL TABLET 3 tabs today, then 1 tab twice daily for 3 day, then one daily for three days PREDNISONE 20 MG ORAL TABLET 119729 PREDNISONE Inactive PREDNISONE 20 MG ORAL TABLET 2 tabs daily for 4 days, 1 tab daily for 4 days, 1/2 tab daily for 4 days PREDNISONE 20 MG ORAL TABLET 907072 PREDNISONE Inactive PREDNISONE 10 MG ORAL TABLET 1 tab po daily PREDNISONE 10 MG ORAL TABLET 533682 PREDNISONE Inactive TYLENOL EXTRA STRENGTH 500 MG ORAL TABLET as needed TYLENOL EXTRA STRENGTH 500 MG ORAL TABLET 615282 ACETAMINOPHEN Inactive MUPIROCIN 2 % EXTERNAL OINTMENT apply to affected area BID x 14 days MUPIROCIN 2 % EXTERNAL OINTMENT 823580 MUPIROCIN Inactive MONTELUKAST SODIUM 10 MG ORAL TABLET 1 tab po in the evening 2014 MONTELUKAST SODIUM 10 MG ORAL TABLET 075703 MONTELUKAST SODIUM Inactive BENZONATATE 100 MG ORAL CAPSULE 1 cap po TID PRN BENZONATATE 100 MG ORAL CAPSULE 884234 BENZONATATE Inactive NEURONTIN 300 MG ORAL CAPSULE 1 cap by mouth three times daily for restless leg NEURONTIN 300 MG ORAL CAPSULE 142326 GABAPENTIN Inactive LEVAQUIN 500 MG ORAL TABLET 1 tablet by mouth daily LEVAQUIN 500 MG ORAL TABLET 324803 LEVOFLOXACIN Inactive PREDNISONE 20 MG ORAL TABLET 1 TID x 2 days, then 1 BID x 3 days, then 1 Daily x 3 days, then stop PREDNISONE 20 MG ORAL TABLET 348664 PREDNISONE Inactive POTASSIUM CHLORIDE ER 10 MEQ ORAL TABLET EXTENDED RELEASE take 1 tab po daily POTASSIUM CHLORIDE ER 10 MEQ ORAL TABLET EXTENDED RELEASE POTASSIUM CHLORIDE Inactive PREDNISONE 20 MG ORAL TABLET 1 tab twice daily for 3 day, then one daily for three days PREDNISONE 20 MG ORAL TABLET 148686 PREDNISONE Inactive TESSALON PERLES 100 MG ORAL CAPSULE 1 to 2 tablets by mouth 3 times daily as needed for cough TESSALON PERLES 100 MG ORAL CAPSULE 374576 BENZONATATE Inactive POTASSIUM CHLORIDE ER 10 MEQ ORAL CAPSULE EXTENDED RELEASE 1 capsule by mouth daily POTASSIUM CHLORIDE ER 10 MEQ ORAL CAPSULE EXTENDED RELEASE POTASSIUM CHLORIDE Inactive NITROSTAT 0.4 MG SUBLINGUAL TABLET SUBLINGUAL 1 tab under tongueas needed for chest pain ( may take 3 total, 5 min apart, then call 911) NITROSTAT 0.4 MG SUBLINGUAL TABLET SUBLINGUAL 580968 NITROGLYCERIN Inactive LOVASTATIN 40 MG ORAL TABLET 1 pill by mouth nightly for cholesterol LOVASTATIN 40 MG ORAL TABLET 690258 LOVASTATIN Inactive CEFDINIR 300 MG ORAL CAPSULE take 1 cap po bid x 10 days CEFDINIR 300 MG ORAL CAPSULE 552986 CEFDINIR Inactive ACEBUTOLOL HCL 200 MG ORAL CAPSULE 1 cap in the morning and 2 caps in the evening ACEBUTOLOL HCL 200 MG ORAL CAPSULE 754149 ACEBUTOLOL HCL Inactive VENTOLIN HFA 108 (90 Base) MCG/ACT INHALATION AEROSOL SOLUTION 2 -4 puffs four times a day PRN VENTOLIN HFA 108 (90 Base) MCG/ ACT INHALATION AEROSOL SOLUTION ALBUTEROL SULFATE Inactive LEVAQUIN 500 MG ORAL TABLET Take 1 tab po daily x 8 days LEVAQUIN 500 MG ORAL TABLET 810979 LEVOFLOXACIN Inactive PREDNISONE 20 MG ORAL TABLET 2 tabs daily for 4 days, 1 tab daily for 4 days, 1/2 tab daily for 4 days PREDNISONE 20 MG ORAL TABLET 538027 PREDNISONE Inactive LOVASTATIN 40 MG ORAL TABLET Take 1 tab po every hs LOVASTATIN 40 MG ORAL TABLET 027808 LOVASTATIN Inactive DILAUDID 2 MG ORAL TABLET Take 1/2 tab po every 4 hours as needed for pain DILAUDID 2 MG ORAL TABLET 047253 HYDROMORPHONE HCL Inactive AMITRIPTYLINE HCL 25 MG ORAL TABLET 1 q hs prn AMITRIPTYLINE HCL 25 MG ORAL TABLET 978413 AMITRIPTYLINE HCL Inactive MECLIZINE HCL 25 MG ORAL TABLET 1 tablet three times daily for 3 days, then 1/ 2 tab three times daily for 3 days. MECLIZINE HCL 25 MG ORAL TABLET 744337 MECLIZINE HCL Inactive AMLODIPINE BESYLATE 5 MG ORAL TABLET Take 1 tab po daily AMLODIPINE BESYLATE 5 MG ORAL TABLET 719195 AMLODIPINE BESYLATE Inactive TOPIRAMATE 25 MG ORAL TABLET 1 tab po BID TOPIRAMATE 25 MG ORAL TABLET 067087 TOPIRAMATE Inactive PREDNISONE 20 MG ORAL TABLET 1 tablet twice daily for 2 days, then 1 tablet once daily for 2 days PREDNISONE 20 MG ORAL TABLET 221548 PREDNISONE Inactive PREDNISONE 20 MG ORAL TABLET 1 tab twice daily for 3 day, then one daily for three days PREDNISONE 20 MG ORAL TABLET 904360 PREDNISONE Inactive NIFEDIPINE ER 30 MG ORAL TABLET EXTENDED RELEASE 24 HOUR 1 daily NIFEDIPINE ER 30 MG ORAL TABLET EXTENDED RELEASE 24 HOUR NIFEDIPINE Inactive AMLODIPINE BESYLATE 5 MG ORAL TABLET 1 tablet by mouth daily 2016 AMLODIPINE BESYLATE 5 MG ORAL TABLET 192994 AMLODIPINE BESYLATE Inactive LASIX 20 MG ORAL TABLET 1 tablet by mouth every morning LASIX 20 MG ORAL TABLET 480726 FUROSEMIDE Inactive POTASSIUM CHLORIDE ER 10 MEQ ORAL CAPSULE EXTENDED RELEASE 1 capsule BID 2016 POTASSIUM CHLORIDE ER 10 MEQ ORAL CAPSULE EXTENDED RELEASE POTASSIUM CHLORIDE Inactive POTASSIUM CHLORIDE 20 MEQ ORAL PACKET 1 tab po q day POTASSIUM CHLORIDE 20 MEQ ORAL PACKET 0574738 POTASSIUM CHLORIDE Inactive AZITHROMYCIN 250 MG ORAL TABLET 2 po qd x 1 day, then 1 po qd x 4 days 04/06 AZITHROMYCIN 250 MG ORAL TABLET 319076 AZITHROMYCIN Inactive AZITHROMYCIN 250 MG ORAL TABLET 2 po qd x 1 day, then 1 po qd x 4 days 12/30 AZITHROMYCIN 250 MG ORAL TABLET 895143 AZITHROMYCIN Inactive PREDNISONE 20 MG ORAL TABLET 2 po qd x 5 days PREDNISONE 20 MG ORAL TABLET 801977 PREDNISONE Inactive Vital Signs Date Name Value [...] Panel - Chemistry sodium, serum 140 mmol/L 516-742 6615/07/13 potassium, serum 3.2 mmol/L 3.5-5.2 chloride, serum 103 mmol/L 98-107 carbon dioxide, venous blood 26.9 mmol/L 21.0-32.0 blood glucose 93 mg/dL 65-110 calcium, serum 9.2 mg/dL 8.5-10.1 urea nitrogen, blood 13 mg/dL 7-18 creatinine, serum 0.84 mg/dL 0.60-1.30 sodium, serum 140 mmol/L 450-248 3240/08/21 potassium, serum 3.8 mmol/L 3.5-5.2 chloride, serum [...] ... - Chemistry sodium, serum 141 mmol/L 673-793 5593/08/07 carbon dioxide, venous blood 34.0 mmol/L 21.0-32.0 [...] 1.40 mg/dL 0.00-1.00 cholesterol, serum 192 mg/dL 586-264 5339/10/19 triglyceride, serum, fasting 71 mg/dL 30-200 HDL cholesterol, serum 72 mg/dL 32-60 LDL cholesterol, serum 106 mg/dL 0-130 Lab Report: THEOPHYLLINE - Toxicology theophylline level, serum 3.1 ug/mL 10.0-20.0 Encounters Code Encounter Date Provider Facility CPT-90534 Level 3 Est. Patient 15:14:45 [employer] Harinder Cr [facility] CPT-01726 Level 4 Est. Patient 14:45:25 CDT [facility] CPT-74146 Level 4 Est. Patient 09:15:13 CDT [facility] CPT-79883 Level 3 Est. Patient 11:51:58 CDT Harinder Hernandez [facility] CPT-55513 Level 3 Est. Patient 11:30:05 CDT Harinder Hernandez [facility] CPT-20126 Level 4 Est. Patient 10:19:23 CDT Harinder Hernandez [facility] CPT-94639 Level 3 Est. Patient 09:58:58 CDT Harinder Hernandez [facility] CPT-82091 Level 3 Est. Patient 12:37:21 CDT Harinder Cr [facility] CPT-53159 Level 3 Est. Patient 18:37:17 CDT Harinder Hernandez [facility] CPT-89806 Level 4 Est. Patient 11:15:54 CDT Nettie Newberry APRN [facility] CPT-90187 Level 3 Est. Patient 16:42:24 CDT Harinder Cr [facility] CPT-23376 Level 3 Est. Patient 15:03:36 CDT Harinder Cr [facility] CPT-85919 Level 3 Est. Patient 15:03:20 CDT Harinder Hernandez [facility] CPT-65503 Level 3 Est. Patient 12:14:34 CDT Harinder Hernandez [facility] CPT-27982 Level 3 Est. Patient 13:47:15 CDT Harinder Hernandez [facility] CPT-27367 Level 3 Est. Patient 14:08:24 CDT Harinder Hernandez [facility] CPT-52230 Level 3 Est. Patient 10:07:15 CDT Harinder Cr [facility] CPT-41593 Level 3 Est. Patient 10:06:59 CDT Harinder Cr [facility] CPT-06614 Level 3 Est. Patient 15:53:29 CDT Jae Morgan MD [facility] CPT-44673 Level 3 Est. Patient 17:19:04 CDT Harinder Hernandez [facility] CPT-88330 Level 3 Est. Patient 11:13:01 CDT Harinder Hernandez [facility] CPT-23568 Level 3 Est. Patient 09:03:58 CDT Harinder Hernandez [facility] CPT-63732 Level 3 Est. Patient 14:46:45 [employer] Harinder Hernandez [facility] CPT-92933 Level 3 Est. Patient 09:35:49 [employer] Harinder Hernandez [facility] CPT-10784 Level 3 Est. Patient 09:29:37 [employer] Harinder Hernandez [facility] CPT-41418 Level 3 Est. Patient 15:51:07 CDT Harinder Hernandez [facility] CPT-76576 Level 3 Est. Patient 18:13:13 CDT Harinder Hernandez [facility] CPT-56920 Level 3 Est. Patient 10:44:19 CDT Harinder Cr [facility] CPT-68776 Level 4 Est. Patient 10:07:19 [employer] Harinder Hernandez [facility] CPT-74027 Level 3 Est. Patient 15:59:32 [employer] Harinder Cr [facility] Procedures Code Procedure Name Date Entry Date Standard Description CPT-98404 Abd compl w upright - XRAY USE ONLY 14:48:09 CDT 02/18 CPT-92232 Port a cath flush 13:46:05 CDT CPT-01068 Hip, complete, 2-3 views - XRAY USE ONLY 10:28:40 CDT CPT-08145 BMP - LAB USE ONLY 16:45:09 [employer] CPT-19772 Port a cath flush 12:00:13 [employer] CPT-TCMM Transitional Care Mgmt-Moderate 11:20:16 [employer] CPT-94505 First Vx - Ix admin for Medicare patients 17:35:15 CDT CPT-64570 Fluzone Preservative Free Intramuscular Suspension 17:35 :15 CDT CPT-28057 Microalbumin - LAB USE ONLY 11:52:05 CDT CPT-TCMM Transitional Care Mgmt-Moderate 11:33:57 CDT CPT-79058 No Charge Offi Visit 14:11:29 CDT CPT-90476 Magnesium - LAB USE ONLY 10:45:44 CDT CPT-35750 Lipid - LAB USE ONLY 10:45:44 CDT CPT-24904 CBC - LAB USE ONLY 10:45:44 CDT CPT-51533 Venipuncture Draw Fee 10:45:43 CDT CPT-28183 Venipuncture Draw Fee 18:21:27 CDT CPT-JTINJ Asp/Joint Injection 18:38:04 CDT CPT-42262 Immunization Each Additional Inj 17:38:04 CDT CPT-73875 Immunization Single Admin 17:38:04 CDT CPT-69152 Prevnar 13 17:38:04 CDT CPT-18534 Fluzone Quadrivalent preservative free (>=3yrs.) 17:38: 04 CDT CPT-26847 No Charge Offi Visit 11:14:03 CDT CPT-66819 Chest 2V Frontal and Lat 14:00:18 CDT CPT-OV Office Visit 16:10:28 CDT CPT-JTINJ Asp/Joint Injection 09:03:57 CDT CPT-Cryo Cryotherapy 09:35:49 [employer] CPT-JTINJ Asp/Joint Injection 09:34:45 [employer] CPT-J2930 Solu Medrol 125 mg (Methyl Prednisolone Sodium Succinate) 20:37:27 CDT CPT-92458 Abx/Therapy Injection 20:37:27 CDT CPT-58203 Port a cath flush 08:15:51 CDT CPT-28784 Port a cath flush 09:54:16 CDT CPT-35951 Port a cath flush 09:38:02 CDT CPT-60790 Port a cath flush 11:00:27 [employer]
--- OUTSIDE RECORDS SUMMARY | 2017-12-29 03:28 | XMS REPORT | Clinical Summary ---
Author Author Admin, QIE Organization [facility] [facility]) Address Unknown Phone Unavailable Allergies, Adverse Reactions, [...] MG/0.3ML INJ SOAJ 1 INJ NEEDED EPINEPHRINE 91506023021 Active Tawnya Pardo MA Active PREDNISONE 20 MG TAB 1 tab twice daily for 3 day, then one daily for three days PREDNISONE 00208851420 No Longer Active Harinder Hernandez DO Active PREDNISONE 20 MG TAB 1 tablet twice daily for 2 days, then 1 tablet once daily for 2 days PREDNISONE 04730452057 No Longer Active Harinder Hernandez DO Active ASMANEX 120 METERED DOSES 220 MCG/INH INH AEPB 2 puffs orally twice daily MOMETASONE FUROATE 52279474508 Active Jeri Sosa RPT,RMA Active NIFEDIPINE ER 30 MG ORAL [id number] 1 daily NIFEDIPINE 52454694960 Active Tawnya Pardo MA Active TOPIRAMATE 25 MG TABS 1 tab po BID TOPIRAMATE 03341759716 No Longer Active Nettie eNwberry APRN Active AMLODIPINE BESYLATE 5 MG ORAL TABS Take 1 tab po daily AMLODIPINE BESYLATE 26159789801 No Longer Active Nettie Newberry APRN Active MECLIZINE HCL 25 MG TAB 1 tablet three times daily for 3 days, then 1/2 tab three times daily for 3 days. MECLIZINE HCL 77322003120 No Longer Active Nettie Newberry APRN Active AMITRIPTYLINE HCL 25 MG ORAL TABS 1 q hs prn AMITRIPTYLINE HCL 64274365986 No Longer Active Nettie Newberry APRN Active DILAUDID 2 MG ORAL TABS Take 1/2 tab po every 4 hours as needed for pain 2014 HYDROMORPHONE HCL 43112397178 No Longer Active Nettie Newberry APRN Active CLOPIDOGREL BISULFATE 75 MG ORAL TABS 1 tab by mouth once daily CLOPIDOGREL BISULFATE 84250460139 Active Tawnya Pardo MA Active ATORVASTATIN CALCIUM 10 MG ORAL TABS 1 at bedtime ATORVASTATIN CALCIUM 95199170066 Active Tawnya Pardo MA Active LOVASTATIN 40 MG ORAL TABS Take 1 tab po every hs LOVASTATIN 08129486544 No Longer Active Harinder Hernandez DO Active PREDNISONE 20 MG TAB 2 tabs daily for 4 days, 1 tab daily for 4 days, 1/2 tab daily for 4 days PREDNISONE 36990841089 No Longer Active Harinder Hernandez DO Active LEVAQUIN 500 MG ORAL TABS Take 1 tab po daily x 8 days LEVOFLOXACIN 16134758333 No Longer Active Harinder Hernandez DO Active VENTOLIN HFA 108 (90 BASE) MCG/ACT AERS 2 -4 puffs four times a day PRN 2013 ALBUTEROL SULFATE 53856388593 No Longer Active Jeri Sosa RPT,RMA Active ACEBUTOLOL HCL 200 MG CAPS 1 cap in the morning and 2 caps in the evening ACEBUTOLOL HCL 43450111624 No Longer Active Harinder Hernandez DO Active CEFDINIR 300 MG ORAL CAPS take 1 cap po bid x 10 days CEFDINIR 44618016614 No Longer Active Harinder Hernandez DO Active LOVASTATIN 40 MG TABS 1 pill by mouth nightly for cholesterol LOVASTATIN 13010205872 No Longer Active Nettie Newberry APRN Active NITROSTAT 0.4 MG SUBL 1 tab under tongueas needed for chest pain ( may take 3 total, 5 min apart, then call 911) NITROGLYCERIN 75529222542 No Longer Active Nettie Newberry APRN Active POTASSIUM CHLORIDE CR 10 MEQ CPCR 1 capsule by mouth daily 02/14 POTASSIUM CHLORIDE 53592278759 No Longer Active Nettie Newberry APRN Active TESSALON PERLES 100 MG CAP 1 to 2 tablets by mouth 3 times daily as needed for cough BENZONATATE 91385128977 No Longer Active Nettie Newberry APRN Active THEOPHYLLINE ER 200 MG ORAL [id number] Take 1 tab every 12 hours THEOPHYLLINE 01032655429 Active Tawnya Pardo MA Active PREDNISONE 20 MG TAB 2 po qd x 5 days PREDNISONE 35295455859 No Longer Active Jae Morgan MD Active AZITHROMYCIN 250 MG TABS 2 po qd x 1 day, then 1 po qd x 4 days AZITHROMYCIN 75600821241 No Longer Active Jae Morgan MD Active PREDNISONE 20 MG TAB 1 tab twice daily for 3 day, then one daily for three days PREDNISONE 88329286111 No Longer Active Jae Morgan MD Active SINGULAIR 10 MG TABS 1 pill by mouth every evening for breathing. MONTELUKAST SODIUM 35163689552 Active Tawnya Pardo MA Active TYLENOL 325 MG TAB 3 by mouth q4h as needed ACETAMINOPHEN 71842818474 Active Harinder Hernandez DO Active POTASSIUM CHLORIDE ER 10 MEQ CR-TABS take 1 tab po daily POTASSIUM CHLORIDE 21115830226 No Longer Active Harinder Hernandez DO Active PREDNISONE 20 MG TAB 1 TID x 2 days, then 1 BID x 3 days, then 1 Daily x 3 days, then stop PREDNISONE 56789347621 No Longer Active Derrickllkvng Montemayor APRN Active LEVAQUIN 500 MG TAB 1 tablet by mouth daily LEVOFLOXACIN 50944107929 No Longer Active Jillkvng Montemayor APRN Active NEURONTIN 300 MG CAP 1 cap by mouth three times daily for restless leg 06/22 GABAPENTIN 40832395282 No Longer Active Harinder Hernandez DO Active BENZONATATE 100 MG CAPS 1 cap po TID PRN BENZONATATE 34179224336 No Longer Active Harinder Hernandez DO Active MONTELUKAST SODIUM 10 MG TABS 1 tab po in the evening MONTELUKAST SODIUM 00205968523 No Longer Active Harinder Hernandez DO Active MUPIROCIN 2 % OINT apply to affected area BID x 14 days MUPIROCIN 70218084866 No Longer Active Harinder Hernandez DO Active TYLENOL EXTRA STRENGTH 500 MG TABS as needed ACETAMINOPHEN 66358818692 No Longer Active Harinder Hernandez DO Active PREDNISONE 10 MG TABS 1 tab po daily PREDNISONE 98199684835 No Longer Active Harinder Hernandez DO Active PREDNISONE 20 MG TAB 2 tabs daily for 4 days, 1 tab daily for 4 days, 1/2 tab daily for 4 days PREDNISONE 07586443345 No Longer Active Harinder Hernandez DO Active AZITHROMYCIN 250 MG TABS 2 po qd x 1 day, then 1 po qd x 4 days AZITHROMYCIN 96266490140 No Longer Active Harinder Hernandez DO Active PREDNISONE 20 MG TAB 3 tabs today, then 1 tab twice daily for 3 day, then one daily for three days PREDNISONE 44798366378 No Longer Active Harinder Hernandez DO Active NIFEDIAC CC 30 MG [id number] 1 tablet daily for raynaud's syndrome NIFEDIPINE 61924654256 No Longer Active Tawnya Pardo MA Active AMBIEN 10 MG TAB 1/2 tab by mouth at bedtime as needed for sleep ZOLPIDEM TARTRATE 23788159289 Active Harinder Hernandez DO Active CLONAZEPAM 1 MG TABS 1 tablet at bedtime for insomnia and restless legs 09/14 CLONAZEPAM 96394383013 Active Kaylah Newberry Active CLONAZEPAM 0.5 MG TABS 1 tab po daily CLONAZEPAM 09664356888 No Longer Active Harinder Hernandez DO Active PREDNISONE 10 MG TAB 1 tablet daily for COPD PREDNISONE 39281634701 Active Tawnya Pardo MA Active PROAIR HFA 108 (90 BASE) MCG/ACT AERS 2 puffs four times a day as needed 2012 ALBUTEROL SULFATE 44589333534 Active Tawnya Pardo MA Active FLOVENT HFA 110 MCG/ACT AERO 2 puffs inhaled b.i.d. FLUTICASONE PROPIONATE HFA 52685298048 Active Tawnya Pardo MA Active ACIPHEX 20 MG TBEC 1 tab po daily RABEPRAZOLE SODIUM 00469841726 Active Tawnya Pardo MA Active CLONAZEPAM 0.5 MG TABS 1 tab po daily CLONAZEPAM 0.5 MG TABS 841228 CLONAZEPAM Inactive PREDNISONE 20 MG TAB 3 tabs today, then 1 tab twice daily for 3 day, then one daily for three days PREDNISONE 20 MG TAB 263699 PREDNISONE Inactive PREDNISONE 20 MG TAB 2 tabs daily for 4 days, 1 tab daily for 4 days, 1/2 tab daily for 4 days PREDNISONE 20 MG TAB 891760 PREDNISONE Inactive PREDNISONE 10 MG TABS 1 tab po daily PREDNISONE 10 MG TABS 859048 PREDNISONE Inactive TYLENOL EXTRA STRENGTH 500 MG TABS as needed TYLENOL EXTRA STRENGTH 500 MG TABS 277706 ACETAMINOPHEN Inactive MUPIROCIN 2 % OINT apply to affected area BID x 14 days MUPIROCIN 2 % OINT 843042 MUPIROCIN Inactive MONTELUKAST SODIUM 10 MG TABS 1 tab po in the evening MONTELUKAST SODIUM 10 MG TABS 393561 MONTELUKAST SODIUM Inactive BENZONATATE 100 MG CAPS 1 cap po TID PRN BENZONATATE 100 MG CAPS 438242 BENZONATATE Inactive NEURONTIN 300 MG CAP 1 cap by mouth three times daily for restless leg 06/22 NEURONTIN 300 MG CAP 667549 GABAPENTIN Inactive LEVAQUIN 500 MG TAB 1 tablet by mouth daily LEVAQUIN 500 MG TAB 358414 LEVOFLOXACIN Inactive PREDNISONE 20 MG TAB 1 TID x 2 days, then 1 BID x 3 days, then 1 Daily x 3 days, then stop PREDNISONE 20 MG TAB 619691 PREDNISONE Inactive POTASSIUM CHLORIDE ER 10 MEQ CR-TABS take 1 tab po daily POTASSIUM CHLORIDE ER 10 MEQ CR-TABS POTASSIUM CHLORIDE Inactive PREDNISONE 20 MG TAB 1 tab twice daily for 3 day, then one daily for three days PREDNISONE 20 MG TAB 293437 PREDNISONE Inactive TESSALON PERLES 100 MG CAP 1 to 2 tablets by mouth 3 times daily as needed for cough TESSALON PERLES 100 MG CAP 756417 BENZONATATE Inactive POTASSIUM CHLORIDE CR 10 MEQ CPCR 1 capsule by mouth daily 02/14 POTASSIUM CHLORIDE CR 10 MEQ CPCR POTASSIUM CHLORIDE Inactive NITROSTAT 0.4 MG SUBL 1 tab under tongueas needed for chest pain ( may take 3 total, 5 min apart, then call 911) NITROSTAT 0.4 MG SUBL 756469 NITROGLYCERIN Inactive LOVASTATIN 40 MG TABS 1 pill by mouth nightly for cholesterol LOVASTATIN 40 MG TABS 506151 LOVASTATIN Inactive CEFDINIR 300 MG ORAL CAPS take 1 cap po bid x 10 days CEFDINIR 300 MG ORAL CAPS 292267 CEFDINIR Inactive ACEBUTOLOL HCL 200 MG CAPS 1 cap in the morning and 2 caps in the evening ACEBUTOLOL HCL 200 MG CAPS 974729 ACEBUTOLOL HCL Inactive VENTOLIN HFA 108 (90 BASE) MCG/ACT AERS 2 -4 puffs four times a day PRN 2013 VENTOLIN HFA 108 (90 BASE) MCG/ACT AERS ALBUTEROL SULFATE Inactive LEVAQUIN 500 MG ORAL TABS Take 1 tab po daily x 8 days LEVAQUIN 500 MG ORAL TABS 826738 LEVOFLOXACIN Inactive PREDNISONE 20 MG TAB 2 tabs daily for 4 days, 1 tab daily for 4 days, 1/2 tab daily for 4 days PREDNISONE 20 MG TAB 580745 PREDNISONE Inactive LOVASTATIN 40 MG ORAL TABS Take 1 tab po every hs LOVASTATIN 40 MG ORAL TABS 494216 LOVASTATIN Inactive DILAUDID 2 MG ORAL TABS Take 1/2 tab po every 4 hours as needed for pain 2014 DILAUDID 2 MG ORAL TABS 184323 HYDROMORPHONE HCL Inactive AMITRIPTYLINE HCL 25 MG ORAL TABS 1 q hs prn AMITRIPTYLINE HCL 25 MG ORAL TABS 675302 AMITRIPTYLINE HCL Inactive MECLIZINE HCL 25 MG TAB 1 tablet three times daily for 3 days, then 1/2 tab three times daily for 3 days. MECLIZINE HCL 25 MG TAB 569212 MECLIZINE HCL Inactive AMLODIPINE BESYLATE 5 MG ORAL TABS Take 1 tab po daily AMLODIPINE BESYLATE 5 MG ORAL TABS 759439 AMLODIPINE BESYLATE Inactive TOPIRAMATE 25 MG TABS 1 tab po BID TOPIRAMATE 25 MG TABS 356727 TOPIRAMATE Inactive PREDNISONE 20 MG TAB 1 tablet twice daily for 2 days, then 1 tablet once daily for 2 days PREDNISONE 20 MG TAB 857724 PREDNISONE Inactive PREDNISONE 20 MG TAB 1 tab twice daily for 3 day, then one daily for three days PREDNISONE 20 MG TAB 042820 PREDNISONE Inactive AZITHROMYCIN 250 MG TABS 2 po qd x 1 day, then 1 po qd x 4 days AZITHROMYCIN 250 MG TABS 1361095 AZITHROMYCIN Inactive AZITHROMYCIN 250 MG TABS 2 po qd x 1 day, then 1 po qd x 4 days AZITHROMYCIN 250 MG TABS 8360682 AZITHROMYCIN Inactive PREDNISONE 20 MG TAB 2 po qd x 5 days PREDNISONE 20 MG TAB 886943 PREDNISONE Inactive Vital Signs Date Name Value [...] Magnesium - Chemistry cholesterol, serum 180 mg/dL 041-586 6626/08/08 triglyceride, serum, fasting 92 mg/dL 30-200 HDL cholesterol, serum 66 mg/dL 32-96 LDL cholesterol, serum 96 mg/dL 0-130 sodium, serum 142 mmol/L 751-251 7176/08/08 carbon dioxide, venous blood 27.4 mmol/L 21.0-32.0 [...] 10.0-20.0 Encounters Code Encounter Date Provider Facility CPT-57195 Level 3 Est. Patient 09:58:58 CDT Harinder Cr [facility] CPT-42824 Level 3 Est. Patient 12:37:21 CDT Harinder Hernandez [facility] CPT-31647 Level 3 Est. Patient 18:37:17 CDT Harinder Cr [facility] CPT-47436 Level 4 Est. Patient 11:15:54 CDT Nettie Newberry [facility] CPT-42086 Level 3 Est. Patient 16:42:24 CDT Harinder Hernandez [facility] CPT-45490 Level 3 Est. Patient 15:03:36 CDT Harinder Hernandez [facility] CPT-04343 Level 3 Est. Patient 15:03:20 CDT Harinder Hernandez [facility] CPT-58334 Level 3 Est. Patient 12:14:34 CDT Harinder Hernandez [facility] CPT-84453 Level 3 Est. Patient 13:47:15 CDT Harinder Hernandez [facility] CPT-80754 Level 3 Est. Patient 14:08:24 CDT Harinder Hernandez [facility] CPT-95808 Level 3 Est. Patient 10:07:15 CDT Harinder Hernandez [facility] CPT-72220 Level 3 Est. Patient 10:06:59 CDT Harinder Hernandez [facility] CPT-98746 Level 3 Est. Patient 15:53:29 CDT Jae Morgan [facility] CPT-74332 Level 3 Est. Patient 17:19:04 CDT Harinder Hernandez [facility] CPT-14728 Level 3 Est. Patient 11:13:01 CDT Harinder Hernandez [facility] CPT-92347 Level 3 Est. Patient 09:03:58 CDT Harinder Hernandez [facility] CPT-68100 Level 3 Est. Patient 14:46:45 [employer] Harinder Hernandez [facility] CPT-17524 Level 3 Est. Patient 09:35:49 [employer] Harinder Shaye Hernandez [facility] CPT-83222 Level 3 Est. Patient 09:29:37 [employer] Harinder Cr David [facility] CPT-47719 Level 3 Est. Patient 15:51:07 CDT Harinder Hernandez [facility] CPT-40423 Level 3 Est. Patient 18:13:13 CDT Harinder Hernandez [facility] CPT-90056 Level 3 Est. Patient 10:44:19 CDT Harinder Hernandez [facility] CPT-11046 Level 4 Est. Patient 10:07:19 [employer] Harinder Cr [facility] CPT-87004 Level 3 Est. Patient 15:59:32 [employer] Harinder Cr [facility] Procedures Code Procedure Name Date Entry Date Standard Description CPT-TCMM Transitional Care Mgmt-Moderate 11:33:57 CDT CPT-07674 No Charge Offi Visit 14:11:29 CDT CPT-79579 Magnesium - LAB USE ONLY 10:45:44 CDT CPT-17904 Lipid - LAB USE ONLY 10:45:44 CDT CPT-88887 CBC - LAB USE ONLY 10:45:44 CDT CPT-32471 Venipuncture Draw Fee 10:45:43 CDT CPT-33042 Venipuncture Draw Fee 18:21:27 CDT CPT-JTINJ Asp/Joint Injection 18:38:04 CDT CPT-52606 Immunization Each Additional Inj 17:38:04 CDT CPT-04422 Immunization Single Admin 17:38:04 CDT CPT-45980 Prevnar 13 17:38:04 CDT CPT-34486 Fluzone Quadrivalent preservative free (>=3yrs.) 17:38: 04 CDT CPT-00930 No Charge Offi Visit 11:14:03 CDT CPT-09477 Chest 2V Frontal and Lat 14:00:18 CDT CPT-OV Office Visit 16:10:28 CDT CPT-JTINJ Asp/Joint Injection 09:03:57 CDT CPT-Cryo Cryotherapy 09:35:49 [employer] CPT-JTINJ Asp/Joint Injection 09:34:45 4[employer] GR[employer] CPT-J2930 Solu Medrol 125 mg (Methyl Prednisolone Sodium Succinate) 20:37:27 CDT CPT-90473 Abx/Therapy Injection 20:37:27 CDT CPT-59297 Port a cath flush 08:15:51 CDT CPT-31622 Port a cath flush 09:54:16 CDT CPT-82995 Port a cath flush 09:38:02 CDT CPT-71773 Port a cath flush 11:00:27 4[employer] GRADE [employer]
--- OUTSIDE RECORDS SUMMARY | 2017-12-29 03:30 | XMS REPORT | Clinical Summary ---
Author Author Admin, QIE Organization [facility] [employer] Address Unknown Phone Unavailable Allergies, Adverse [...] + D3 TABLET CALCIUM CARBONATE-VITAMIN D TABS [id number] Active Meenu Alejo LPN Active SPIRONOLACTONE 25 MG ORAL TABLET 1 tablet by mouth daily SPIRONOLACTONE 32513652528 No Longer Active Jeri Nieto Active PREDNISONE 20 MG ORAL TABLET 2 tablets by mouth today, then 1 tablet by mouth days 2-3 PREDNISONE 03233630245 No Longer Active Jeri Nieto Active NITROSTAT 0.4 MG SUBLINGUAL TABLET SUBLINGUAL 1 tab SL q5min PRN chest pain NITROGLYCERIN 03824342706 Active Meenu Alejo LPN Active THEOPHYLLINE ER 300 MG ORAL TABLET EXTENDED RELEASE 12 HOUR 1 po BID THEOPHYLLINE 74639361799 Active Harinder Hernandez DO Active POTASSIUM CHLORIDE ER 20 MEQ ORAL TABLET EXTENDED RELEASE 1 po q day POTASSIUM CHLORIDE 63631365792 Active Kortney Mccain Active POTASSIUM CHLORIDE 20 MEQ ORAL PACKET 1 tab po q day POTASSIUM CHLORIDE 39432324419 No Longer Active Kortney Mccain Active POTASSIUM CHLORIDE ER 10 MEQ ORAL CAPSULE EXTENDED RELEASE 1 capsule BID 2016 POTASSIUM CHLORIDE 12983977040 No Longer Active Kortney Mccain Active LASIX 20 MG ORAL TABLET 1 tablet by mouth every morning FUROSEMIDE 99834138876 No Longer Active Kortney Mccain Active FLUOXETINE HCL 10 MG ORAL CAPSULE 1 po qd for depression/anxiety FLUOXETINE HCL 15763771237 Active Meenu Alejo LPN Active VOLTAREN 1 % TRANSDERMAL GEL apply q 6-8 hour to left arm as needed for pain DICLOFENAC SODIUM 46005977529 Active Kortney Mccain Active ALBUTEROL SULFATE (2.5 MG/3ML) 0.083% INHALATION NEBULIZATION SOLUTION 1 vial neb q 4hrs for severe asthma. 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 NIFEDIPINE 88489763633 Active Kortney Mccain Active AMLODIPINE BESYLATE 5 MG ORAL TABLET 1 tablet by mouth daily 2016 AMLODIPINE BESYLATE 49489755087 No Longer Active Harinder Hernandez DO Active TOPAMAX 25 MG ORAL TABLET 1 tab po BID TOPIRAMATE 76650314297 Active Kortney Mccain Active FLUTICASONE PROPIONATE 50 MCG/ACT NASAL SUSPENSION 2 sprays per nostril daily PRN Allergies FLUTICASONE PROPIONATE 44670606698 Active Meenu Alejo LPN Active NIFEDIPINE ER 30 MG ORAL TABLET EXTENDED RELEASE 24 HOUR 1 daily NIFEDIPINE 16655888066 No Longer Active Harinder Hernandez DO Active FLOVENT HFA 110 MCG/ACT INHALATION AEROSOL 2 puffs inhaled b.i.d. FLUTICASONE PROPIONATE HFA 46196780570 Active Harinder Hernandez DO Active EPIPEN 2-BRUNA 0.3 MG/0.3ML INJECTION SOLUTION AUTO-INJECTOR 1 INJ NEEDED EPINEPHRINE 62974820423 Active Meenu Alejo LPN Active PREDNISONE 20 MG ORAL TABLET 1 tab twice daily for 3 day, then one daily for three days PREDNISONE 02980006316 No Longer Active Harinder Hernandez DO Active PREDNISONE 20 MG ORAL TABLET 1 tablet twice daily for 2 days, then 1 tablet once daily for 2 days PREDNISONE 52559811179 No Longer Active Harinder Hernandez DO Active ASMANEX 120 METERED DOSES 220 MCG/INH INHALATION AEROSOL POWDER BREATH ACTIVATED 2 puffs orally twice daily MOMETASONE FUROATE 42585292395 Active Jeri Sosa LPN Active TOPIRAMATE 25 MG ORAL TABLET 1 tab po BID TOPIRAMATE 33887713565 No Longer Active Nettie Newberry APRN Active AMLODIPINE BESYLATE 5 MG ORAL TABLET Take 1 tab po daily AMLODIPINE BESYLATE 63578497923 No Longer Active Nettie Newberry APRN Active MECLIZINE HCL 25 MG ORAL TABLET 1 tablet three times daily for 3 days, then 1/ 2 tab three times daily for 3 days. MECLIZINE HCL 55684687290 No Longer Active Nettie Newberry APRN Active AMITRIPTYLINE HCL 25 MG ORAL TABLET 1 q hs prn AMITRIPTYLINE HCL 37383111938 No Longer Active Nettie Newberry APRN Active DILAUDID 2 MG ORAL TABLET Take 1/2 tab po every 4 hours as needed for pain HYDROMORPHONE HCL 65940988047 No Longer Active Netite Newberry APRN Active CLOPIDOGREL BISULFATE 75 MG ORAL TABLET 1 tab by mouth once daily CLOPIDOGREL BISULFATE 13330892612 Active Meenu Alejo LPN Active ATORVASTATIN CALCIUM 10 MG ORAL TABLET 1 at bedtime ATORVASTATIN CALCIUM 82560737116 Active Kortney Mccain Active LOVASTATIN 40 MG ORAL TABLET Take 1 tab po every hs LOVASTATIN 83504376104 No Longer Active Harinder Hernandez DO Active PREDNISONE 20 MG ORAL TABLET 2 tabs daily for 4 days, 1 tab daily for 4 days, 1/2 tab daily for 4 days PREDNISONE 39543443717 No Longer Active Harinder Hernandez DO Active LEVAQUIN 500 MG ORAL TABLET Take 1 tab po daily x 8 days LEVOFLOXACIN 33661523482 No Longer Active Harinder Hernandez DO Active VENTOLIN HFA 108 (90 Base) MCG/ACT INHALATION AEROSOL SOLUTION 2 -4 puffs four times a day PRN ALBUTEROL SULFATE 17365751839 No Longer Active Jeri Sosa LPN Active ACEBUTOLOL HCL 200 MG ORAL CAPSULE 1 cap in the morning and 2 caps in the evening ACEBUTOLOL HCL 96109949183 No Longer Active Harinder Hernandez DO Active CEFDINIR 300 MG ORAL CAPSULE take 1 cap po bid x 10 days CEFDINIR 99432918489 No Longer Active Harinder Hernandez DO Active LOVASTATIN 40 MG ORAL TABLET 1 pill by mouth nightly for cholesterol LOVASTATIN 68191995874 No Longer Active Nettie Newberry APRN Active NITROSTAT 0.4 MG SUBLINGUAL TABLET SUBLINGUAL 1 tab under tongueas needed for chest pain ( may take 3 total, 5 min apart, then call 911) NITROGLYCERIN 45493564924 No Longer Active Nettie Newberry APRN Active POTASSIUM CHLORIDE ER 10 MEQ ORAL CAPSULE EXTENDED RELEASE 1 capsule by mouth daily POTASSIUM CHLORIDE 57973317433 No Longer Active Nettie Newberry APRN Active TESSALON PERLES 100 MG ORAL CAPSULE 1 to 2 tablets by mouth 3 times daily as needed for cough BENZONATATE 37808361801 No Longer Active Nettie Newberry APRN Active PREDNISONE 20 MG ORAL TABLET 2 po qd x 5 days PREDNISONE 04910384988 No Longer Active Jae Morgan MD Active AZITHROMYCIN 250 MG ORAL TABLET 2 po qd x 1 day, then 1 po qd x 4 days 12/30 AZITHROMYCIN 38365665782 No Longer Active Jae Morgan MD Active PREDNISONE 20 MG ORAL TABLET 1 tab twice daily for 3 day, then one daily for three days PREDNISONE 35825195214 No Longer Active Jae Morgan MD Active SINGULAIR 10 MG ORAL TABLET 1 pill by mouth every evening for breathing. 2014 MONTELUKAST SODIUM 48426356759 Active Meenu lAejo LPN Active TYLENOL 325 MG ORAL TABLET 3 by mouth q4h as needed ACETAMINOPHEN 02215373236 Active Harinder Hernandez DO Active POTASSIUM CHLORIDE ER 10 MEQ ORAL TABLET EXTENDED RELEASE take 1 tab po daily POTASSIUM CHLORIDE 00554391431 No Longer Active Harinder Hernandez DO Active PREDNISONE 20 MG ORAL TABLET 1 TID x 2 days, then 1 BID x 3 days, then 1 Daily x 3 days, then stop PREDNISONE 46961929686 No Longer Active Jillina Fradankl WAFER FAB OPERATOR Active LEVAQUIN 500 MG ORAL TABLET 1 tablet by mouth daily LEVOFLOXACIN 26865433553 No Longer Active Jillina Frazell WAFER FAB OPERATOR Active NEURONTIN 300 MG ORAL CAPSULE 1 cap by mouth three times daily for restless leg GABAPENTIN 31122164357 No Longer Active Harinder Hernandez DO Active BENZONATATE 100 MG ORAL CAPSULE 1 cap po TID PRN BENZONATATE 83906087554 No Longer Active Harinder Hernandez DO Active MONTELUKAST SODIUM 10 MG ORAL TABLET 1 tab po in the evening 2014 MONTELUKAST SODIUM 40720487763 No Longer Active Harinder Hernandez DO Active MUPIROCIN 2 % EXTERNAL OINTMENT apply to affected area BID x 14 days MUPIROCIN 78664522362 No Longer Active Harinder Hernandez DO Active TYLENOL EXTRA STRENGTH 500 MG ORAL TABLET as needed ACETAMINOPHEN 92472897925 No Longer Active Harinder Hernandez DO Active PREDNISONE 10 MG ORAL TABLET 1 tab po daily PREDNISONE 84470691420 No Longer Active Harinder Hernandez DO Active PREDNISONE 20 MG ORAL TABLET 2 tabs daily for 4 days, 1 tab daily for 4 days, 1/2 tab daily for 4 days PREDNISONE 99099385916 No Longer Active Harinder Hernandez DO Active AZITHROMYCIN 250 MG ORAL TABLET 2 po qd x 1 day, then 1 po qd x 4 days 04/06 AZITHROMYCIN 62778807136 No Longer Active Harinder Hernandez DO Active PREDNISONE 20 MG ORAL TABLET 3 tabs today, then 1 tab twice daily for 3 day, then one daily for three days PREDNISONE 35377284212 No Longer Active Harinder Hernandez DO Active NIFEDIAC CC 30 MG ORAL TABLET EXTENDED RELEASE 24 HOUR 1 tablet daily for raynaud's syndrome NIFEDIPINE 53623387664 No Longer Active Tawnya Pardo MA Active AMBIEN 10 MG ORAL TABLET 1/2 tab by mouth at bedtime as needed for sleep 2013 ZOLPIDEM TARTRATE 04662569772 Active Meenu Alejo LPN Active CLONAZEPAM 1 MG ORAL TABLET 1 tablet at bedtime for insomnia and restless legs CLONAZEPAM 41673599950 Active Harinder Hernandez DO Active CLONAZEPAM 0.5 MG ORAL TABLET 1 tab po daily CLONAZEPAM 86700187656 No Longer Active Harinder Hernandez DO Active PREDNISONE 10 MG ORAL TABLET 1 tablet daily for COPD PREDNISONE 29515717016 Active Kortney Mccain Active PROAIR HFA 108 (90 Base) MCG/ACT INHALATION AEROSOL SOLUTION 2 puffs four times a day as needed ALBUTEROL SULFATE 20983881446 Active Harinder Hernandez DO Active FLOVENT HFA 110 MCG/ACT INHALATION AEROSOL 2 puffs inhaled b.i.d. FLUTICASONE PROPIONATE HFA 07134735570 Active Kortney Mccain Active ACIPHEX 20 MG ORAL TABLET DELAYED RELEASE 1 tab po daily RABEPRAZOLE SODIUM 88893147690 Active Meenu Alejo LPN Active CLONAZEPAM 0.5 MG ORAL TABLET 1 tab po daily CLONAZEPAM 0.5 MG ORAL TABLET 366075 CLONAZEPAM Inactive PREDNISONE 20 MG ORAL TABLET 3 tabs today, then 1 tab twice daily for 3 day, then one daily for three days PREDNISONE 20 MG ORAL TABLET 242727 PREDNISONE Inactive PREDNISONE 20 MG ORAL TABLET 2 tabs daily for 4 days, 1 tab daily for 4 days, 1/2 tab daily for 4 days PREDNISONE 20 MG ORAL TABLET 651755 PREDNISONE Inactive PREDNISONE 10 MG ORAL TABLET 1 tab po daily PREDNISONE 10 MG ORAL TABLET 893235 PREDNISONE Inactive TYLENOL EXTRA STRENGTH 500 MG ORAL TABLET as needed TYLENOL EXTRA STRENGTH 500 MG ORAL TABLET 945499 ACETAMINOPHEN Inactive MUPIROCIN 2 % EXTERNAL OINTMENT apply to affected area BID x 14 days MUPIROCIN 2 % EXTERNAL OINTMENT 079159 MUPIROCIN Inactive MONTELUKAST SODIUM 10 MG ORAL TABLET 1 tab po in the evening 2014 MONTELUKAST SODIUM 10 MG ORAL TABLET 476950 MONTELUKAST SODIUM Inactive BENZONATATE 100 MG ORAL CAPSULE 1 cap po TID PRN BENZONATATE 100 MG ORAL CAPSULE 864951 BENZONATATE Inactive NEURONTIN 300 MG ORAL CAPSULE 1 cap by mouth three times daily for restless leg NEURONTIN 300 MG ORAL CAPSULE 505154 GABAPENTIN Inactive LEVAQUIN 500 MG ORAL TABLET 1 tablet by mouth daily LEVAQUIN 500 MG ORAL TABLET 877358 LEVOFLOXACIN Inactive PREDNISONE 20 MG ORAL TABLET 1 TID x 2 days, then 1 BID x 3 days, then 1 Daily x 3 days, then stop PREDNISONE 20 MG ORAL TABLET 646008 PREDNISONE Inactive POTASSIUM CHLORIDE ER 10 MEQ ORAL TABLET EXTENDED RELEASE take 1 tab po daily POTASSIUM CHLORIDE ER 10 MEQ ORAL TABLET EXTENDED RELEASE POTASSIUM CHLORIDE Inactive PREDNISONE 20 MG ORAL TABLET 1 tab twice daily for 3 day, then one daily for three days PREDNISONE 20 MG ORAL TABLET 100818 PREDNISONE Inactive TESSALON PERLES 100 MG ORAL CAPSULE 1 to 2 tablets by mouth 3 times daily as needed for cough TESSALON PERLES 100 MG ORAL CAPSULE 422633 BENZONATATE Inactive POTASSIUM CHLORIDE ER 10 MEQ ORAL CAPSULE EXTENDED RELEASE 1 capsule by mouth daily POTASSIUM CHLORIDE ER 10 MEQ ORAL CAPSULE EXTENDED RELEASE POTASSIUM CHLORIDE Inactive NITROSTAT 0.4 MG SUBLINGUAL TABLET SUBLINGUAL 1 tab under tongueas needed for chest pain ( may take 3 total, 5 min apart, then call 911) NITROSTAT 0.4 MG SUBLINGUAL TABLET SUBLINGUAL 925964 NITROGLYCERIN Inactive LOVASTATIN 40 MG ORAL TABLET 1 pill by mouth nightly for cholesterol LOVASTATIN 40 MG ORAL TABLET 481480 LOVASTATIN Inactive CEFDINIR 300 MG ORAL CAPSULE take 1 cap po bid x 10 days CEFDINIR 300 MG ORAL CAPSULE 951338 CEFDINIR Inactive ACEBUTOLOL HCL 200 MG ORAL CAPSULE 1 cap in the morning and 2 caps in the evening ACEBUTOLOL HCL 200 MG ORAL CAPSULE 997948 ACEBUTOLOL HCL Inactive VENTOLIN HFA 108 (90 Base) MCG/ACT INHALATION AEROSOL SOLUTION 2 -4 puffs four times a day PRN VENTOLIN HFA 108 (90 Base) MCG/ ACT INHALATION AEROSOL SOLUTION ALBUTEROL SULFATE Inactive LEVAQUIN 500 MG ORAL TABLET Take 1 tab po daily x 8 days LEVAQUIN 500 MG ORAL TABLET 220144 LEVOFLOXACIN Inactive PREDNISONE 20 MG ORAL TABLET 2 tabs daily for 4 days, 1 tab daily for 4 days, 1/2 tab daily for 4 days PREDNISONE 20 MG ORAL TABLET 052003 PREDNISONE Inactive LOVASTATIN 40 MG ORAL TABLET Take 1 tab po every hs LOVASTATIN 40 MG ORAL TABLET 115900 LOVASTATIN Inactive DILAUDID 2 MG ORAL TABLET Take 1/2 tab po every 4 hours as needed for pain DILAUDID 2 MG ORAL TABLET 302632 HYDROMORPHONE HCL Inactive AMITRIPTYLINE HCL 25 MG ORAL TABLET 1 q hs prn AMITRIPTYLINE HCL 25 MG ORAL TABLET 983692 AMITRIPTYLINE HCL Inactive MECLIZINE HCL 25 MG ORAL TABLET 1 tablet three times daily for 3 days, then 1/ 2 tab three times daily for 3 days. MECLIZINE HCL 25 MG ORAL TABLET 796512 MECLIZINE HCL Inactive AMLODIPINE BESYLATE 5 MG ORAL TABLET Take 1 tab po daily AMLODIPINE BESYLATE 5 MG ORAL TABLET 661517 AMLODIPINE BESYLATE Inactive TOPIRAMATE 25 MG ORAL TABLET 1 tab po BID TOPIRAMATE 25 MG ORAL TABLET 801922 TOPIRAMATE Inactive PREDNISONE 20 MG ORAL TABLET 1 tablet twice daily for 2 days, then 1 tablet once daily for 2 days PREDNISONE 20 MG ORAL TABLET 889511 PREDNISONE Inactive PREDNISONE 20 MG ORAL TABLET 1 tab twice daily for 3 day, then one daily for three days PREDNISONE 20 MG ORAL TABLET 643489 PREDNISONE Inactive NIFEDIPINE ER 30 MG ORAL TABLET EXTENDED RELEASE 24 HOUR 1 daily NIFEDIPINE ER 30 MG ORAL TABLET EXTENDED RELEASE 24 HOUR NIFEDIPINE Inactive AMLODIPINE BESYLATE 5 MG ORAL TABLET 1 tablet by mouth daily 2016 AMLODIPINE BESYLATE 5 MG ORAL TABLET 805981 AMLODIPINE BESYLATE Inactive LASIX 20 MG ORAL TABLET 1 tablet by mouth every morning LASIX 20 MG ORAL TABLET 821402 FUROSEMIDE Inactive POTASSIUM CHLORIDE ER 10 MEQ ORAL CAPSULE EXTENDED RELEASE 1 capsule BID 2016 POTASSIUM CHLORIDE ER 10 MEQ ORAL CAPSULE EXTENDED RELEASE POTASSIUM CHLORIDE Inactive POTASSIUM CHLORIDE 20 MEQ ORAL PACKET 1 tab po q day POTASSIUM CHLORIDE 20 MEQ ORAL PACKET 6877846 POTASSIUM CHLORIDE Inactive PREDNISONE 20 MG ORAL TABLET 2 tablets by mouth today, then 1 tablet by mouth days 2-3 PREDNISONE 20 MG ORAL TABLET 060708 PREDNISONE Inactive SPIRONOLACTONE 25 MG ORAL TABLET 1 tablet by mouth daily SPIRONOLACTONE 25 MG ORAL TABLET 856220 SPIRONOLACTONE Inactive AZITHROMYCIN 250 MG ORAL TABLET 2 po qd x 1 day, then 1 po qd x 4 days 04/06 AZITHROMYCIN 250 MG ORAL TABLET 410480 AZITHROMYCIN Inactive AZITHROMYCIN 250 MG ORAL TABLET 2 po qd x 1 day, then 1 po qd x 4 days 12/30 AZITHROMYCIN 250 MG ORAL TABLET 427407 AZITHROMYCIN Inactive PREDNISONE 20 MG ORAL TABLET 2 po qd x 5 days PREDNISONE 20 MG ORAL TABLET 803725 PREDNISONE Inactive Vital Signs Date Name Value [...] Panel - Chemistry sodium, serum 140 mmol/L 121-419 3429/07/13 potassium, serum 3.2 mmol/L 3.5-5.2 chloride, serum 103 mmol/L 98-107 carbon dioxide, venous blood 26.9 mmol/L 21.0-32.0 blood glucose 93 mg/dL 65-110 calcium, serum 9.2 mg/dL 8.5-10.1 urea nitrogen, blood 13 mg/dL 7-18 creatinine, serum 0.84 mg/dL 0.60-1.30 sodium, serum 140 mmol/L 551-138 2804/08/21 potassium, serum 3.8 mmol/L 3.5-5.2 chloride, serum [...] ... - Chemistry sodium, serum 141 mmol/L 245-893 1894/08/07 carbon dioxide, venous blood 34.0 mmol/L 21.0-32.0 [...] 1.40 mg/dL 0.00-1.00 cholesterol, serum 192 mg/dL 910-284 4682/10/19 triglyceride, serum, fasting 71 mg/dL 30-200 HDL cholesterol, serum 72 mg/dL 32-60 LDL cholesterol, serum 106 mg/dL 0-130 Lab Report: Rapid Strep - Lab Microbial identification kit, rapid strep method Negative Negative Lab Report: THEOPHYLLINE - Toxicology theophylline level, serum 3.1 ug/mL 10.0-20.0 Encounters Code Encounter Date Provider Facility CPT-57425 Level 4 Est. Patient 10:17:51 BROADCAST SYSTEMS ENGINEER Harinder Hernandez [facility] CPT-59341 Level 3 Est. Patient 12:36:15 [employer]OADCAST SYSTEMS ENGINEER Harinder Hernandez [facility] CPT-90939 Level 3 Est. Patient 15:14:45 [employer]OADCAST SYSTEMS ENGINEER Harinder Hernandez [facility] CPT-33848 Level 4 Est. Patient 14:45:25 CDT Harinder Cr [facility] CPT-77502 Level 4 Est. Patient 09:15:13 CDT Harinder Hernandez [facility] CPT-83022 Level 3 Est. Patient 11:51:58 CDT Harinder Hernandez [facility] CPT-68423 Level 3 Est. Patient 11:30:05 CDT Harinder Hernandez [facility] CPT-78118 Level 4 Est. Patient 10:19:23 CDT Harinder Hernandez [facility] CPT-85831 Level 3 Est. Patient 09:58:58 CDT Harinder Cr [facility] CPT-07041 Level 3 Est. Patient 12:37:21 CDT Harinder Cr [facility] CPT-77547 Level 3 Est. Patient 18:37:17 CDT Harinder Cr [facility] CPT-55337 Level 4 Est. Patient 11:15:54 CDT Nettie Newberry APRN [facility] CPT-73820 Level 3 Est. Patient 16:42:24 CDT Harinder Hernandez [facility] CPT-22026 Level 3 Est. Patient 15:03:36 CDT Harinder Hernandez [facility] CPT-10425 Level 3 Est. Patient 15:03:20 CDT Harinder Hernandez [facility] CPT-82686 Level 3 Est. Patient 12:14:34 CDT Harinder Hernandez [facility] CPT-84556 Level 3 Est. Patient 13:47:15 CDT Harinder Hernandez [facility] CPT-86599 Level 3 Est. Patient 14:08:24 CDT Harinder Hernandez [facility] CPT-47100 Level 3 Est. Patient 10:07:15 CDT Harinder Hernandez [facility] CPT-54748 Level 3 Est. Patient 10:06:59 CDT Harinder Hernandez [facility] CPT-89142 Level 3 Est. Patient 15:53:29 CDT Jae Morgan MD [facility] CPT-93009 Level 3 Est. Patient 17:19:04 CDT Harinder Hernandez [facility] CPT-86261 Level 3 Est. Patient 11:13:01 CDT Harinder Hernandez [facility] CPT-71778 Level 3 Est. Patient 09:03:58 CDT Harinder Shaye Hernandez [facility] CPT-38920 Level 3 Est. Patient 14:46:45 BROADCAST SYSTEMS ENGINEER Harinder Cr David [facility] CPT-66109 Level 3 Est. Patient 09:35:49 BROADCAST SYSTEMS ENGINEER Harinder Hernandez [facility] CPT-47365 Level 3 Est. Patient 09:29:37 BROADCAST SYSTEMS ENGINEER Harinder Hernandez [facility] CPT-62902 Level 3 Est. Patient 15:51:07 CDT Harinder Hernandez [facility] CPT-57091 Level 3 Est. Patient 18:13:13 CDT Harinder Hernandez [facility] CPT-75595 Level 3 Est. Patient 10:44:19 CDT Harinder Hernandez [facility] CPT-54451 Level 4 Est. Patient 10:07:19 BROADCAST SYSTEMS ENGINEER Harinder Hernandez [facility] CPT-69894 Level 3 Est. Patient 15:59:32 BROADCAST SYSTEMS ENGINEER Harinder Hernandez [facility] Procedures Code Procedure Name Date Entry Date Standard Description CPT-38936 Bone Density - XRAY USE ONLY 14:43:42 CDT CPT-G0009 Administration of Pneumococcal Vaccine 10:33:25 BROADCAST SYSTEMS ENGINEER CPT-79432 Pneumovax 23 Injection Injectable 25 MCG/0.5ML 10:33:25 [employer]OADCAST SYSTEMS ENGINEER CPT-82019 First Vx - Ix admin for Medicare patients 10:33:25 BROADCAST SYSTEMS ENGINEER CPT-73138 Fluzone Quadrivalent Intramuscular Suspension 0.5 ML 10: 33:25 BROADCAST SYSTEMS ENGINEER CPT-Cryo Cryotherapy 10:17:51 BROADCAST SYSTEMS ENGINEER CPT-G0438 Initial Annual Wellness Exam 10:08:59 BROADCAST SYSTEMS ENGINEER CPT-64238 Abd compl w upright - XRAY USE ONLY 14:48:09 CDT 02/18 CPT-11200 Port a cath flush 13:46:05 CDT CPT-34960 Hip, complete, 2-3 views - XRAY USE ONLY 10:28:40 CDT CPT-27495 BMP - LAB USE ONLY 16:45:09 BROADCAST SYSTEMS ENGINEER CPT-49507 Port a cath flush 12:00:13 BROADCAST SYSTEMS ENGINEER CPT-TCMM Transitional Care Mgmt-Moderate 11:20:16 BROADCAST SYSTEMS ENGINEER CPT-76574 First Vx - Ix admin for Medicare patients 17:35:15 CDT CPT-04194 Fluzone Preservative Free Intramuscular Suspension 17:35 :15 CDT CPT-78761 Microalbumin - LAB USE ONLY 11:52:05 CDT CPT-TCMM Transitional Care Mgmt-Moderate 11:33:57 CDT CPT-74777 No Charge Offi Visit 14:11:29 CDT CPT-20384 Magnesium - LAB USE ONLY 10:45:44 CDT CPT-44061 Lipid - LAB USE ONLY 10:45:44 CDT CPT-60370 CBC - LAB USE ONLY 10:45:44 CDT CPT-70043 Venipuncture Draw Fee 10:45:43 CDT CPT-15130 Venipuncture Draw Fee 18:21:27 CDT CPT-JTINJ Asp/Joint Injection 18:38:04 CDT CPT-18977 Immunization Each Additional Inj 17:38:04 CDT CPT-49616 Immunization Single Admin 17:38:04 CDT CPT-95789 Prevnar 13 17:38:04 CDT CPT-84183 Fluzone Quadrivalent preservative free (>=3yrs.) 17:38: 04 CDT CPT-09692 No Charge Offi Visit 11:14:03 CDT CPT-12213 Chest 2V Frontal and Lat 14:00:18 CDT CPT-OV Office Visit 16:10:28 CDT CPT-JTINJ Asp/Joint Injection 09:03:57 CDT CPT-Cryo Cryotherapy 09:35:49 BROADCAST SYSTEMS ENGINEER CPT-JTINJ Asp/Joint Injection 09:34:45 BROADCAST SYSTEMS ENGINEER CPT-J2930 Solu Medrol 125 mg (Methyl Prednisolone Sodium Succinate) 20:37:27 CDT CPT-88781 Abx/Therapy Injection 20:37:27 CDT CPT-35741 Port a cath flush 08:15:51 CDT CPT-09592 Port a cath flush 09:54:16 CDT CPT-76970 Port a cath flush 09:38:02 CDT CPT-49008 Port a cath flush 11:00:27 BROADCAST SYSTEMS ENGINEER
--- OUTSIDE RECORDS SUMMARY | 2017-12-29 03:32 | XMS REPORT | Clinical Summary ---
Author Author Admin, QIE Organization 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 NIFEDIPINE 78267485349 Active Harinder Hernandez DO Active AMLODIPINE BESYLATE 5 MG TABS 1 tablet by mouth daily AMLODIPINE BESYLATE 57704757297 No Longer Active Harinder Hernandez DO Active TOPAMAX 25 MG ORAL TABS 1 tab po BID TOPIRAMATE 20669553113 Active Kortney Mccain Active FLUTICASONE PROPIONATE 50 MCG/ACT SUSP 2 sprays per nostril daily PRN Allergies FLUTICASONE PROPIONATE 67460160920 Active Kortney Mccain Active NIFEDIPINE ER 30 MG ORAL [id number] 1 daily NIFEDIPINE 06175231603 No Longer Active Harinder Hernandez DO Active POTASSIUM CHLORIDE 20 MEQ ORAL PACK Take 1 tablet by mouth daily POTASSIUM CHLORIDE 19869602822 Active Ciera Pimentel Active FLOVENT HFA 110 MCG/ACT AERO 2 puffs inhaled b.i.d. FLUTICASONE PROPIONATE HFA 54420524793 Active Harinder Hernandez DO Active POTASSIUM CHLORIDE CR 10 MEQ CPCR 1 capsule by mouth daily POTASSIUM CHLORIDE 18429025586 Active Harinder Hernandez DO Active EPIPEN 2-BRUNA 0.3 MG/0.3ML INJ SOAJ 1 INJ NEEDED EPINEPHRINE 39891774077 Active Harinder Hernandez DO Active PREDNISONE 20 MG TAB 1 tab twice daily for 3 day, then one daily for three days PREDNISONE 12467229330 No Longer Active Harinder Hernandez DO Active PREDNISONE 20 MG TAB 1 tablet twice daily for 2 days, then 1 tablet once daily for 2 days PREDNISONE 52016006608 No Longer Active Harinder Hernandez DO Active ASMANEX 120 METERED DOSES 220 MCG/INH INH AEPB 2 puffs orally twice daily MOMETASONE FUROATE 45039903355 Active Jeri Sosa RPT,RMA Active TOPIRAMATE 25 MG TABS 1 tab po BID TOPIRAMATE 23557030598 No Longer Active Nettie Newberry APRN Active AMLODIPINE BESYLATE 5 MG ORAL TABS Take 1 tab po daily AMLODIPINE BESYLATE 41364500357 No Longer Active Nettie Newberry APRN Active MECLIZINE HCL 25 MG TAB 1 tablet three times daily for 3 days, then 1/2 tab three times daily for 3 days. MECLIZINE HCL 07731455005 No Longer Active Nettie Newberry APRN Active AMITRIPTYLINE HCL 25 MG ORAL TABS 1 q hs prn AMITRIPTYLINE HCL 01278071405 No Longer Active Nettie Newberry APRN Active DILAUDID 2 MG ORAL TABS Take 1/2 tab po every 4 hours as needed for pain 2014 HYDROMORPHONE HCL 60638778502 No Longer Active Nettie Newberry APRN Active CLOPIDOGREL BISULFATE 75 MG ORAL TABS 1 tab by mouth once daily CLOPIDOGREL BISULFATE 36883014838 Active Harinder Hernandez DO Active ATORVASTATIN CALCIUM 10 MG ORAL TABS 1 at bedtime ATORVASTATIN CALCIUM 95402526890 Active Tawnya Pardo MA Active LOVASTATIN 40 MG ORAL TABS Take 1 tab po every hs LOVASTATIN 11743888518 No Longer Active Harinder Hernandez DO Active PREDNISONE 20 MG TAB 2 tabs daily for 4 days, 1 tab daily for 4 days, 1/2 tab daily for 4 days PREDNISONE 93424149573 No Longer Active Harinder Hernandez DO Active LEVAQUIN 500 MG ORAL TABS Take 1 tab po daily x 8 days LEVOFLOXACIN 09315580312 No Longer Active Harinder Hernandez DO Active VENTOLIN HFA 108 (90 BASE) MCG/ACT AERS 2 -4 puffs four times a day PRN 2013 ALBUTEROL SULFATE 97176389399 No Longer Active Jeri Sosa RPT,RMA Active ACEBUTOLOL HCL 200 MG CAPS 1 cap in the morning and 2 caps in the evening ACEBUTOLOL HCL 02968064541 No Longer Active Harinder Hernandez DO Active CEFDINIR 300 MG ORAL CAPS take 1 cap po bid x 10 days CEFDINIR 11739668184 No Longer Active Harinder Hernandez DO Active LOVASTATIN 40 MG TABS 1 pill by mouth nightly for cholesterol LOVASTATIN 83404461948 No Longer Active Nettie Newberry APRN Active NITROSTAT 0.4 MG SUBL 1 tab under tongueas needed for chest pain ( may take 3 total, 5 min apart, then call 911) NITROGLYCERIN 77787306842 No Longer Active Nettie Newberry APRN Active POTASSIUM CHLORIDE CR 10 MEQ CPCR 1 capsule by mouth daily 02/14 POTASSIUM CHLORIDE 46190680272 No Longer Active Nettie Newberry APRN Active TESSALON PERLES 100 MG CAP 1 to 2 tablets by mouth 3 times daily as needed for cough BENZONATATE 40878202430 No Longer Active Nettie Newberry APRN Active THEOPHYLLINE ER 200 MG ORAL [id number] Take 1 tab every 12 hours THEOPHYLLINE 95145478923 Active Tawnya Pardo MA Active PREDNISONE 20 MG TAB 2 po qd x 5 days PREDNISONE 56901347172 No Longer Active Jae Morgan MD Active AZITHROMYCIN 250 MG TABS 2 po qd x 1 day, then 1 po qd x 4 days AZITHROMYCIN 87320510226 No Longer Active Jae Morgan MD Active PREDNISONE 20 MG TAB 1 tab twice daily for 3 day, then one daily for three days PREDNISONE 84437165259 No Longer Active Jae Morgan MD Active SINGULAIR 10 MG TABS 1 pill by mouth every evening for breathing. MONTELUKAST SODIUM 33065200640 Active Tawnya Pardo MA Active TYLENOL 325 MG TAB 3 by mouth q4h as needed ACETAMINOPHEN 97856420117 Active Harinder Hernandez DO Active POTASSIUM CHLORIDE ER 10 MEQ CR-TABS take 1 tab po daily POTASSIUM CHLORIDE 43011370051 No Longer Active Harinder Hernandez DO Active PREDNISONE 20 MG TAB 1 TID x 2 days, then 1 BID x 3 days, then 1 Daily x 3 days, then stop PREDNISONE 50188389018 No Longer Active Jillina Frazell HORTICULTURAL AGENT Active LEVAQUIN 500 MG TAB 1 tablet by mouth daily LEVOFLOXACIN 47867528831 No Longer Active Jillina Frazell HORTICULTURAL AGENT Active NEURONTIN 300 MG CAP 1 cap by mouth three times daily for restless leg 06/22 GABAPENTIN 50065564947 No Longer Active Harinder Hernandez DO Active BENZONATATE 100 MG CAPS 1 cap po TID PRN BENZONATATE 70776703512 No Longer Active Harinder Hernandez DO Active MONTELUKAST SODIUM 10 MG TABS 1 tab po in the evening MONTELUKAST SODIUM 38524022025 No Longer Active Harinder Hernandez DO Active MUPIROCIN 2 % OINT apply to affected area BID x 14 days MUPIROCIN 47794343743 No Longer Active Harinder Hernandez DO Active TYLENOL EXTRA STRENGTH 500 MG TABS as needed ACETAMINOPHEN 37785568982 No Longer Active Harinder Hernandez DO Active PREDNISONE 10 MG TABS 1 tab po daily PREDNISONE 71121369014 No Longer Active Harinder Hernandez DO Active PREDNISONE 20 MG TAB 2 tabs daily for 4 days, 1 tab daily for 4 days, 1/2 tab daily for 4 days PREDNISONE 50785586590 No Longer Active Harinder Hernandez DO Active AZITHROMYCIN 250 MG TABS 2 po qd x 1 day, then 1 po qd x 4 days AZITHROMYCIN 64915727019 No Longer Active Harinder Hernandez DO Active PREDNISONE 20 MG TAB 3 tabs today, then 1 tab twice daily for 3 day, then one daily for three days PREDNISONE 43807512631 No Longer Active Harinder Hernandez DO Active NIFEDIAC CC 30 MG [id number] 1 tablet daily for raynaud's syndrome NIFEDIPINE 18425457342 No Longer Active Tawnya Pardo MA Active AMBIEN 10 MG TAB 1/2 tab by mouth at bedtime as needed for sleep ZOLPIDEM TARTRATE 34840907059 Active Kortney Mccain Active CLONAZEPAM 1 MG TABS 1 tablet at bedtime for insomnia and restless legs 09/14 CLONAZEPAM 52715060626 Active Harinder Hernandez DO Active CLONAZEPAM 0.5 MG TABS 1 tab po daily CLONAZEPAM 43022882713 No Longer Active Harinder Hernandez DO Active PREDNISONE 10 MG TAB 1 tablet daily for COPD PREDNISONE 34447160459 Active Ciera Pimentel Active PROAIR HFA 108 (90 BASE) MCG/ACT AERS 2 puffs four times a day as needed 2012 ALBUTEROL SULFATE 32690982432 Active Harinder Hernandez DO Active FLOVENT HFA 110 MCG/ACT AERO 2 puffs inhaled b.i.d. FLUTICASONE PROPIONATE HFA 20953707533 Active Kortney Mccain Active ACIPHEX 20 MG TBEC 1 tab po daily RABEPRAZOLE SODIUM 73718262143 Active Kaylah Newberry Active CLONAZEPAM 0.5 MG TABS 1 tab po daily CLONAZEPAM 0.5 MG TABS 805073 CLONAZEPAM Inactive PREDNISONE 20 MG TAB 3 tabs today, then 1 tab twice daily for 3 day, then one daily for three days PREDNISONE 20 MG TAB 338070 PREDNISONE Inactive PREDNISONE 20 MG TAB 2 tabs daily for 4 days, 1 tab daily for 4 days, 1/2 tab daily for 4 days PREDNISONE 20 MG TAB 610723 PREDNISONE Inactive PREDNISONE 10 MG TABS 1 tab po daily PREDNISONE 10 MG TABS 194794 PREDNISONE Inactive TYLENOL EXTRA STRENGTH 500 MG TABS as needed TYLENOL EXTRA STRENGTH 500 MG TABS 049080 ACETAMINOPHEN Inactive MUPIROCIN 2 % OINT apply to affected area BID x 14 days MUPIROCIN 2 % OINT 457184 MUPIROCIN Inactive MONTELUKAST SODIUM 10 MG TABS 1 tab po in the evening MONTELUKAST SODIUM 10 MG TABS 20010818 MONTELUKAST SODIUM Inactive BENZONATATE 100 MG CAPS 1 cap po TID PRN BENZONATATE 100 MG CAPS 787969 BENZONATATE Inactive NEURONTIN 300 MG CAP 1 cap by mouth three times daily for restless leg 06/22 NEURONTIN 300 MG CAP 323988 GABAPENTIN Inactive LEVAQUIN 500 MG TAB 1 tablet by mouth daily LEVAQUIN 500 MG TAB 796677 LEVOFLOXACIN Inactive PREDNISONE 20 MG TAB 1 TID x 2 days, then 1 BID x 3 days, then 1 Daily x 3 days, then stop PREDNISONE 20 MG TAB 555179 PREDNISONE Inactive POTASSIUM CHLORIDE ER 10 MEQ CR-TABS take 1 tab po daily POTASSIUM CHLORIDE ER 10 MEQ CR-TABS POTASSIUM CHLORIDE Inactive PREDNISONE 20 MG TAB 1 tab twice daily for 3 day, then one daily for three days PREDNISONE 20 MG TAB 349754 PREDNISONE Inactive TESSALON PERLES 100 MG CAP 1 to 2 tablets by mouth 3 times daily as needed for cough TESSALON PERLES 100 MG CAP 161952 BENZONATATE Inactive POTASSIUM CHLORIDE CR 10 MEQ CPCR 1 capsule by mouth daily 02/14 POTASSIUM CHLORIDE CR 10 MEQ CPCR POTASSIUM CHLORIDE Inactive NITROSTAT 0.4 MG SUBL 1 tab under tongueas needed for chest pain ( may take 3 total, 5 min apart, then call 911) NITROSTAT 0.4 MG SUBL 826007 NITROGLYCERIN Inactive LOVASTATIN 40 MG TABS 1 pill by mouth nightly for cholesterol LOVASTATIN 40 MG TABS 191764 LOVASTATIN Inactive CEFDINIR 300 MG ORAL CAPS take 1 cap po bid x 10 days CEFDINIR 300 MG ORAL CAPS 496541 CEFDINIR Inactive ACEBUTOLOL HCL 200 MG CAPS 1 cap in the morning and 2 caps in the evening ACEBUTOLOL HCL 200 MG CAPS 194202 ACEBUTOLOL HCL Inactive VENTOLIN HFA 108 (90 BASE) MCG/ACT AERS 2 -4 puffs four times a day PRN 2013 VENTOLIN HFA 108 (90 BASE) MCG/ACT AERS ALBUTEROL SULFATE Inactive LEVAQUIN 500 MG ORAL TABS Take 1 tab po daily x 8 days LEVAQUIN 500 MG ORAL TABS 516634 LEVOFLOXACIN Inactive PREDNISONE 20 MG TAB 2 tabs daily for 4 days, 1 tab daily for 4 days, 1/2 tab daily for 4 days PREDNISONE 20 MG TAB 632503 PREDNISONE Inactive LOVASTATIN 40 MG ORAL TABS Take 1 tab po every hs LOVASTATIN 40 MG ORAL TABS 493124 LOVASTATIN Inactive DILAUDID 2 MG ORAL TABS Take 1/2 tab po every 4 hours as needed for pain 2014 DILAUDID 2 MG ORAL TABS 714717 HYDROMORPHONE HCL Inactive AMITRIPTYLINE HCL 25 MG ORAL TABS 1 q hs prn AMITRIPTYLINE HCL 25 MG ORAL TABS 419506 AMITRIPTYLINE HCL Inactive MECLIZINE HCL 25 MG TAB 1 tablet three times daily for 3 days, then 1/2 tab three times daily for 3 days. MECLIZINE HCL 25 MG TAB 334767 MECLIZINE HCL Inactive AMLODIPINE BESYLATE 5 MG ORAL TABS Take 1 tab po daily AMLODIPINE BESYLATE 5 MG ORAL TABS 120075 AMLODIPINE BESYLATE Inactive TOPIRAMATE 25 MG TABS 1 tab po BID TOPIRAMATE 25 MG TABS 081203 TOPIRAMATE Inactive PREDNISONE 20 MG TAB 1 tablet twice daily for 2 days, then 1 tablet once daily for 2 days PREDNISONE 20 MG TAB 553906 PREDNISONE Inactive PREDNISONE 20 MG TAB 1 tab twice daily for 3 day, then one daily for three days PREDNISONE 20 MG TAB 310954 PREDNISONE Inactive NIFEDIPINE ER 30 MG ORAL [id number] 1 daily NIFEDIPINE ER 30 MG ORAL [id number] NIFEDIPINE Inactive AMLODIPINE BESYLATE 5 MG TABS 1 tablet by mouth daily AMLODIPINE BESYLATE 5 MG TABS 092432 AMLODIPINE BESYLATE Inactive AZITHROMYCIN 250 MG TABS 2 po qd x 1 day, then 1 po qd x 4 days AZITHROMYCIN 250 MG TABS 9072356 AZITHROMYCIN Inactive AZITHROMYCIN 250 MG TABS 2 po qd x 1 day, then 1 po qd x 4 days AZITHROMYCIN 250 MG TABS 8997448 AZITHROMYCIN Inactive PREDNISONE 20 MG TAB 2 po qd x 5 days PREDNISONE 20 MG TAB 847788 PREDNISONE Inactive Vital Signs Date Name Value [...] Panel - Chemistry sodium, serum 137 mmol/L 648-435 3303/01/03 potassium, serum 3.4 mmol/L 3.5-5.2 chloride, serum [...] Magnesium - Chemistry cholesterol, serum 180 mg/dL 209-679 4935/08/08 triglyceride, serum, fasting 92 mg/dL 30-200 HDL cholesterol, serum 66 mg/dL 32-96 LDL cholesterol, serum 96 mg/dL 0-130 sodium, serum 142 mmol/L 098-635 7422/08/08 carbon dioxide, venous blood 27.4 mmol/L 21.0-32.0 [...] 10.0-20.0 Encounters Code Encounter Date Provider Facility CPT-57711 Level 4 Est. Patient 10:19:23 CDT Harinder Cr [facility] CPT-16654 Level 3 Est. Patient 09:58:58 CDT Harinder Cr [facility] CPT-72305 Level 3 Est. Patient 12:37:21 CDT Harinder Cr [facility] CPT-62512 Level 3 Est. Patient 18:37:17 CDT Harinder Cr [facility] CPT-64574 Level 4 Est. Patient 11:15:54 CDT Nettie Newberry [facility] CPT-58024 Level 3 Est. Patient 16:42:24 CDT Harinder Cr [facility] CPT-88008 Level 3 Est. Patient 15:03:36 CDT Harinder Cr [facility] CPT-32689 Level 3 Est. Patient 15:03:20 CDT Harinder Cr [facility] CPT-77280 Level 3 Est. Patient 12:14:34 CDT Harinder Hernandez [facility] CPT-94732 Level 3 Est. Patient 13:47:15 CDT Harinder Hernandez [facility] CPT-51724 Level 3 Est. Patient 14:08:24 CDT Harinder Hernandez [facility] CPT-60586 Level 3 Est. Patient 10:07:15 CDT Harinder Hernandez [facility] CPT-83744 Level 3 Est. Patient 10:06:59 CDT Harinder Hernandez [facility] CPT-88678 Level 3 Est. Patient 15:53:29 CDT Jae Morgan [facility] CPT-20802 Level 3 Est. Patient 17:19:04 CDT Harinder Hernandez [facility] CPT-73905 Level 3 Est. Patient 11:13:01 CDT Harinder Hernandez [facility] CPT-83919 Level 3 Est. Patient 09:03:58 CDT Harinder Cr [facility] CPT-22890 Level 3 Est. Patient 14:46:45 SILICA [employer] Harinder Hernandez [facility] CPT-21576 Level 3 Est. Patient 09:35:49 S[employer]ICA [employer] HELPER Harinder Hernandez [facility] CPT-63717 Level 3 Est. Patient 09:29:37 SILICA [employer] PR[employer] HELPER Harinder Hernandez [facility] CPT-37891 Level 3 Est. Patient 15:51:07 CDT Harinder Hernandez [facility] CPT-53299 Level 3 Est. Patient 18:13:13 CDT Harinder Shaye Hernandez [facility] CPT-58328 Level 3 Est. Patient 10:44:19 CDT Harinder Cr [facility] CPT-43595 Level 4 Est. Patient 10:07:19 SILICA [employer] HELPER Harinder Cr [facility] CPT-33307 Level 3 Est. Patient 15:59:32 SILICA [employer] PR[employer] HELPER Harinder Cr [facility] Procedures Code Procedure Name Date Entry Date Standard Description CPT-62411 Hip, complete, 2-3 views - XRAY USE ONLY 10:28:40 CDT CPT-75838 BMP - LAB USE ONLY 16:45:09 SILICA [employer] HEL[employer] CPT-74427 Port a cath flush 12:00:13 SILICA [employer]Y PRESS HELPER CPT-TCMM Transitional Care Mgmt-Moderate 11:20:16 SILICA DRY PRESS HELPER CPT-91575 First Vx - Ix admin for Medicare patients 17:35:15 CDT CPT-48785 Fluzone Preservative Free Intramuscular Suspension 17:35 :15 CDT CPT-15072 Microalbumin - LAB USE ONLY 11:52:05 CDT CPT-TCMM Transitional Care Mgmt-Moderate 11:33:57 CDT CPT-75099 No Charge Offi Visit 14:11:29 CDT CPT-17284 Magnesium - LAB USE ONLY 10:45:44 CDT CPT-89584 Lipid - LAB USE ONLY 10:45:44 CDT CPT-10735 CBC - LAB USE ONLY 10:45:44 CDT CPT-37650 Venipuncture Draw Fee 10:45:43 CDT CPT-68945 Venipuncture Draw Fee 18:21:27 CDT CPT-JTINJ Asp/Joint Injection 18:38:04 CDT CPT-23291 Immunization Each Additional Inj 17:38:04 CDT CPT-27390 Immunization Single Admin 17:38:04 CDT CPT-56334 Prevnar 13 17:38:04 CDT CPT-63650 Fluzone Quadrivalent preservative free (>=3yrs.) 17:38: 04 CDT CPT-00036 No Charge Offi Visit 11:14:03 CDT CPT-44554 Chest 2V Frontal and Lat 14:00:18 CDT CPT-OV Office Visit 16:10:28 CDT CPT-JTINJ Asp/Joint Injection 09:03:57 CDT CPT-Cryo Cryotherapy 09:35:49 SILICA [employer]Y PRESS HELPER CPT-JTINJ Asp/Joint Injection 09:34:45 SILICA [employer]Y PRESS HELPER CPT-J2930 Solu Medrol 125 mg (Methyl Prednisolone Sodium Succinate) 20:37:27 CDT CPT-06172 Abx/Therapy Injection 20:37:27 CDT CPT-09352 Port a cath flush 08:15:51 CDT CPT-50072 Port a cath flush 09:54:16 CDT CPT-82205 Port a cath flush 09:38:02 CDT CPT-71913 Port a cath flush 11:00:27 SILICA DRY PRESS HELPER
--- OUTSIDE RECORDS SUMMARY | 2017-12-29 03:34 | XMS REPORT | Clinical Summary ---
Author Author Admin, QIE Organization [facility] Address Unknown Phone Unavailable Allergies, Adverse Reactions, [...] neb q 4hrs PRN Wheezing ALBUTEROL SULFATE [id number] Active Harinder Hernandez DO Active FLOVENT HFA 110 MCG/ACT AERO 2 puffs inhaled b.i.d. FLUTICASONE PROPIONATE HFA 06638573190 Active Harinder Hernandez DO Active POTASSIUM CHLORIDE CR 10 MEQ CPCR 1 capsule by mouth daily POTASSIUM CHLORIDE 93660906560 Active Harinder Hernandez DO Active EPIPEN 2-BRUNA 0.3 MG/0.3ML INJ SOAJ 1 INJ NEEDED EPINEPHRINE 60847070590 Active Tawnya Pardo MA Active PREDNISONE 20 MG TAB 1 tab twice daily for 3 day, then one daily for three days PREDNISONE 93901250539 No Longer Active Harinder Hernandez DO Active PREDNISONE 20 MG TAB 1 tablet twice daily for 2 days, then 1 tablet once daily for 2 days PREDNISONE 24234697519 No Longer Active Harinder Hernandez DO Active ASMANEX 120 METERED DOSES 220 MCG/INH INH AEPB 2 puffs orally twice daily MOMETASONE FUROATE 84973335341 Active Jeri Sosa RPT,RMA Active NIFEDIPINE ER 30 MG ORAL [id number] 1 daily NIFEDIPINE 19752009190 Active Harinder Hernandez DO Active TOPIRAMATE 25 MG TABS 1 tab po BID TOPIRAMATE 21541619964 No Longer Active Nettie Newberry APRN Active AMLODIPINE BESYLATE 5 MG ORAL TABS Take 1 tab po daily AMLODIPINE BESYLATE 37291737641 No Longer Active Nettie Newberry APRN Active MECLIZINE HCL 25 MG TAB 1 tablet three times daily for 3 days, then 1/2 tab three times daily for 3 days. MECLIZINE HCL 81211620066 No Longer Active Nettie Newberry APRN Active AMITRIPTYLINE HCL 25 MG ORAL TABS 1 q hs prn AMITRIPTYLINE HCL 91926736540 No Longer Active Nettie Newberry APRN Active DILAUDID 2 MG ORAL TABS Take 1/2 tab po every 4 hours as needed for pain 2014 HYDROMORPHONE HCL 43139700946 No Longer Active Nettie Newberry APRN Active CLOPIDOGREL BISULFATE 75 MG ORAL TABS 1 tab by mouth once daily CLOPIDOGREL BISULFATE 50770543008 Active Tawnya Pardo MA Active ATORVASTATIN CALCIUM 10 MG ORAL TABS 1 at bedtime ATORVASTATIN CALCIUM 49620534284 Active Tawnya Pardo MA Active LOVASTATIN 40 MG ORAL TABS Take 1 tab po every hs LOVASTATIN 77313807040 No Longer Active Harinder Hernandez DO Active PREDNISONE 20 MG TAB 2 tabs daily for 4 days, 1 tab daily for 4 days, 1/2 tab daily for 4 days PREDNISONE 43782377922 No Longer Active Harinder Hernandez DO Active LEVAQUIN 500 MG ORAL TABS Take 1 tab po daily x 8 days LEVOFLOXACIN 19844802315 No Longer Active Harinder Hernandez DO Active VENTOLIN HFA 108 (90 BASE) MCG/ACT AERS 2 -4 puffs four times a day PRN 2013 ALBUTEROL SULFATE 48849883117 No Longer Active Jeri Sosa RPT,RMA Active ACEBUTOLOL HCL 200 MG CAPS 1 cap in the morning and 2 caps in the evening ACEBUTOLOL HCL 91890922158 No Longer Active Harinder Hernandez DO Active CEFDINIR 300 MG ORAL CAPS take 1 cap po bid x 10 days CEFDINIR 18352119344 No Longer Active Harinder Hernandez DO Active LOVASTATIN 40 MG TABS 1 pill by mouth nightly for cholesterol LOVASTATIN 32692562657 No Longer Active Nettie Newberry APRN Active NITROSTAT 0.4 MG SUBL 1 tab under tongueas needed for chest pain ( may take 3 total, 5 min apart, then call 911) NITROGLYCERIN 51897715217 No Longer Active Nettie Newberry MAHENDRA Active POTASSIUM CHLORIDE CR 10 MEQ CPCR 1 capsule by mouth daily 02/14 POTASSIUM CHLORIDE 22865378134 No Longer Active Nettie Newberry MAHENDRA Active TESSALON PERLES 100 MG CAP 1 to 2 tablets by mouth 3 times daily as needed for cough BENZONATATE 35678149475 No Longer Active Nettie Newberry MAHENDRA Active THEOPHYLLINE ER 200 MG ORAL [id number] Take 1 tab every 12 hours THEOPHYLLINE 48961128229 Active Tawnya Pardo MA Active PREDNISONE 20 MG TAB 2 po qd x 5 days PREDNISONE 61736003540 No Longer Active Jae Morgan MD Active AZITHROMYCIN 250 MG TABS 2 po qd x 1 day, then 1 po qd x 4 days AZITHROMYCIN 99629407702 No Longer Active Jae Morgan MD Active PREDNISONE 20 MG TAB 1 tab twice daily for 3 day, then one daily for three days PREDNISONE 39099973201 No Longer Active Jae Morgan MD Active SINGULAIR 10 MG TABS 1 pill by mouth every evening for breathing. MONTELUKAST SODIUM 64426047017 Active Tawnya Pardo MA Active TYLENOL 325 MG TAB 3 by mouth q4h as needed ACETAMINOPHEN 12209406172 Active Harinder Hernandez DO Active POTASSIUM CHLORIDE ER 10 MEQ CR-TABS take 1 tab po daily POTASSIUM CHLORIDE 76567174933 No Longer Active Harinder Hernandez DO Active PREDNISONE 20 MG TAB 1 TID x 2 days, then 1 BID x 3 days, then 1 Daily x 3 days, then stop PREDNISONE 87214337855 No Longer Active Jialec Montemayor APRN Active LEVAQUIN 500 MG TAB 1 tablet by mouth daily LEVOFLOXACIN 54003309942 No Longer Active Jillina Frazell [employer] Active NEURONTIN 300 MG CAP 1 cap by mouth three times daily for restless leg 06/22 GABAPENTIN 23939538281 No Longer Active Harinder Hernandez DO Active BENZONATATE 100 MG CAPS 1 cap po TID PRN BENZONATATE 72016502757 No Longer Active Harinder Hernandez DO Active MONTELUKAST SODIUM 10 MG TABS 1 tab po in the evening MONTELUKAST SODIUM 33571528617 No Longer Active Harinder Hernandez DO Active MUPIROCIN 2 % OINT apply to affected area BID x 14 days MUPIROCIN 25053053100 No Longer Active Harinder Hernandez DO Active TYLENOL EXTRA STRENGTH 500 MG TABS as needed ACETAMINOPHEN 14465817632 No Longer Active Harinder Hernandez DO Active PREDNISONE 10 MG TABS 1 tab po daily PREDNISONE 92151809679 No Longer Active Harinder Hernandez DO Active PREDNISONE 20 MG TAB 2 tabs daily for 4 days, 1 tab daily for 4 days, 1/2 tab daily for 4 days PREDNISONE 90549297178 No Longer Active Harinder Hernandez DO Active AZITHROMYCIN 250 MG TABS 2 po qd x 1 day, then 1 po qd x 4 days AZITHROMYCIN 17609104199 No Longer Active Harinder Hernandez DO Active PREDNISONE 20 MG TAB 3 tabs today, then 1 tab twice daily for 3 day, then one daily for three days PREDNISONE 05867216859 No Longer Active Harinder Hernandez DO Active NIFEDIAC CC 30 MG [id number] 1 tablet daily for raynaud's syndrome NIFEDIPINE 29899689773 No Longer Active Tawnya Pardo MA Active AMBIEN 10 MG TAB 1/2 tab by mouth at bedtime as needed for sleep ZOLPIDEM TARTRATE 50407309328 Active Harinder Hernandez DO Active CLONAZEPAM 1 MG TABS 1 tablet at bedtime for insomnia and restless legs 09/14 CLONAZEPAM 99727487086 Active Harinder Hernandez DO Active CLONAZEPAM 0.5 MG TABS 1 tab po daily CLONAZEPAM 75515194601 No Longer Active Harinder Hernandez DO Active PREDNISONE 10 MG TAB 1 tablet daily for COPD PREDNISONE 82750848714 Active Tawnya Pardo MA Active PROAIR HFA 108 (90 BASE) MCG/ACT AERS 2 puffs four times a day as needed 2012 ALBUTEROL SULFATE 77433128869 Active Tawnya Pardo MA Active FLOVENT HFA 110 MCG/ACT AERO 2 puffs inhaled b.i.d. FLUTICASONE PROPIONATE HFA 53470804641 Active Tawnya Pardo MA Active ACIPHEX 20 MG TBEC 1 tab po daily RABEPRAZOLE SODIUM 94510748023 Active Kaylah Newberry Active CLONAZEPAM 0.5 MG TABS 1 tab po daily CLONAZEPAM 0.5 MG TABS 854076 CLONAZEPAM Inactive PREDNISONE 20 MG TAB 3 tabs today, then 1 tab twice daily for 3 day, then one daily for three days PREDNISONE 20 MG TAB 046876 PREDNISONE Inactive PREDNISONE 20 MG TAB 2 tabs daily for 4 days, 1 tab daily for 4 days, 1/2 tab daily for 4 days PREDNISONE 20 MG TAB 707335 PREDNISONE Inactive PREDNISONE 10 MG TABS 1 tab po daily PREDNISONE 10 MG TABS 794316 PREDNISONE Inactive TYLENOL EXTRA STRENGTH 500 MG TABS as needed TYLENOL EXTRA STRENGTH 500 MG TABS 821137 ACETAMINOPHEN Inactive MUPIROCIN 2 % OINT apply to affected area BID x 14 days MUPIROCIN 2 % OINT 310437 MUPIROCIN Inactive MONTELUKAST SODIUM 10 MG TABS 1 tab po in the evening MONTELUKAST SODIUM 10 MG TABS 20010818 MONTELUKAST SODIUM Inactive BENZONATATE 100 MG CAPS 1 cap po TID PRN BENZONATATE 100 MG CAPS 19730321 BENZONATATE Inactive NEURONTIN 300 MG CAP 1 cap by mouth three times daily for restless leg 06/22 NEURONTIN 300 MG CAP 831431 GABAPENTIN Inactive LEVAQUIN 500 MG TAB 1 tablet by mouth daily LEVAQUIN 500 MG TAB 087735 LEVOFLOXACIN Inactive PREDNISONE 20 MG TAB 1 TID x 2 days, then 1 BID x 3 days, then 1 Daily x 3 days, then stop PREDNISONE 20 MG TAB 191546 PREDNISONE Inactive POTASSIUM CHLORIDE ER 10 MEQ CR-TABS take 1 tab po daily POTASSIUM CHLORIDE ER 10 MEQ CR-TABS POTASSIUM CHLORIDE Inactive PREDNISONE 20 MG TAB 1 tab twice daily for 3 day, then one daily for three days PREDNISONE 20 MG TAB 518959 PREDNISONE Inactive TESSALON PERLES 100 MG CAP 1 to 2 tablets by mouth 3 times daily as needed for cough TESSALON PERLES 100 MG CAP 940615 BENZONATATE Inactive POTASSIUM CHLORIDE CR 10 MEQ CPCR 1 capsule by mouth daily 02/14 POTASSIUM CHLORIDE CR 10 MEQ CPCR POTASSIUM CHLORIDE Inactive NITROSTAT 0.4 MG SUBL 1 tab under tongueas needed for chest pain ( may take 3 total, 5 min apart, then call 911) NITROSTAT 0.4 MG SUBL 074746 NITROGLYCERIN Inactive LOVASTATIN 40 MG TABS 1 pill by mouth nightly for cholesterol LOVASTATIN 40 MG TABS 000578 LOVASTATIN Inactive CEFDINIR 300 MG ORAL CAPS take 1 cap po bid x 10 days CEFDINIR 300 MG ORAL CAPS 134071 CEFDINIR Inactive ACEBUTOLOL HCL 200 MG CAPS 1 cap in the morning and 2 caps in the evening ACEBUTOLOL HCL 200 MG CAPS 398484 ACEBUTOLOL HCL Inactive VENTOLIN HFA 108 (90 BASE) MCG/ACT AERS 2 -4 puffs four times a day PRN 2013 VENTOLIN HFA 108 (90 BASE) MCG/ACT AERS ALBUTEROL SULFATE Inactive LEVAQUIN 500 MG ORAL TABS Take 1 tab po daily x 8 days LEVAQUIN 500 MG ORAL TABS 422474 LEVOFLOXACIN Inactive PREDNISONE 20 MG TAB 2 tabs daily for 4 days, 1 tab daily for 4 days, 1/2 tab daily for 4 days PREDNISONE 20 MG TAB 858681 PREDNISONE Inactive LOVASTATIN 40 MG ORAL TABS Take 1 tab po every hs LOVASTATIN 40 MG ORAL TABS 654584 LOVASTATIN Inactive DILAUDID 2 MG ORAL TABS Take 1/2 tab po every 4 hours as needed for pain 2014 DILAUDID 2 MG ORAL TABS 850542 HYDROMORPHONE HCL Inactive AMITRIPTYLINE HCL 25 MG ORAL TABS 1 q hs prn AMITRIPTYLINE HCL 25 MG ORAL TABS 171597 AMITRIPTYLINE HCL Inactive MECLIZINE HCL 25 MG TAB 1 tablet three times daily for 3 days, then 1/2 tab three times daily for 3 days. MECLIZINE HCL 25 MG TAB 911544 MECLIZINE HCL Inactive AMLODIPINE BESYLATE 5 MG ORAL TABS Take 1 tab po daily AMLODIPINE BESYLATE 5 MG ORAL TABS 728348 AMLODIPINE BESYLATE Inactive TOPIRAMATE 25 MG TABS 1 tab po BID TOPIRAMATE 25 MG TABS 943079 TOPIRAMATE Inactive PREDNISONE 20 MG TAB 1 tablet twice daily for 2 days, then 1 tablet once daily for 2 days PREDNISONE 20 MG TAB 756715 PREDNISONE Inactive PREDNISONE 20 MG TAB 1 tab twice daily for 3 day, then one daily for three days PREDNISONE 20 MG TAB 574002 PREDNISONE Inactive AZITHROMYCIN 250 MG TABS 2 po qd x 1 day, then 1 po qd x 4 days AZITHROMYCIN 250 MG TABS 4253373 AZITHROMYCIN Inactive AZITHROMYCIN 250 MG TABS 2 po qd x 1 day, then 1 po qd x 4 days AZITHROMYCIN 250 MG TABS 4891468 AZITHROMYCIN Inactive PREDNISONE 20 MG TAB 2 po qd x 5 days PREDNISONE 20 MG TAB 020211 PREDNISONE Inactive Vital Signs Date Name Value [...] Magnesium - Chemistry cholesterol, serum 180 mg/dL 760-113 1399/08/08 triglyceride, serum, fasting 92 mg/dL 30-200 HDL cholesterol, serum 66 mg/dL 32-96 LDL cholesterol, serum 96 mg/dL 0-130 sodium, serum 142 mmol/L 863-096 2816/08/08 carbon dioxide, venous blood 27.4 mmol/L 21.0-32.0 [...] 10.0-20.0 Encounters Code Encounter Date Provider Facility CPT-23940 Level 3 Est. Patient 09:58:58 CDT Harinder Cr [facility] CPT-28420 Level 3 Est. Patient 12:37:21 CDT Harinder Hernandez [facility] CPT-22549 Level 3 Est. Patient 18:37:17 CDT Harinder Cr [facility] CPT-33878 Level 4 Est. Patient 11:15:54 CDT Nettie Newberry APRN [facility] CPT-75100 Level 3 Est. Patient 16:42:24 CDT Harinder Cr [facility] CPT-91830 Level 3 Est. Patient 15:03:36 CDT Harinder Hernandez [facility] CPT-83755 Level 3 Est. Patient 15:03:20 CDT Harinder Cr [facility] CPT-60208 Level 3 Est. Patient 12:14:34 CDT Harinder Hernandez [facility] CPT-57631 Level 3 Est. Patient 13:47:15 CDT Harinder Hernandez [facility] CPT-15456 Level 3 Est. Patient 14:08:24 CDT Harinder Hernandez [facility] CPT-39307 Level 3 Est. Patient 10:07:15 CDT Harinder Cr [facility] CPT-83508 Level 3 Est. Patient 10:06:59 CDT Harinder Hernandez [facility] CPT-83362 Level 3 Est. Patient 15:53:29 CDT Jae Morgan MD [facility] CPT-73183 Level 3 Est. Patient 17:19:04 CDT Harinder Hernandez [facility] CPT-02238 Level 3 Est. Patient 11:13:01 CDT Harinder Hernandez [facility] CPT-19621 Level 3 Est. Patient 09:03:58 CDT Harinder Hernandez [facility] CPT-52620 Level 3 Est. Patient 14:46:45 OPTICAL DESIGNER Harinder Hernandez [facility] CPT-39639 Level 3 Est. Patient 09:35:49 OPTICAL DESIGNER Harinder Hernandez [facility] CPT-07790 Level 3 Est. Patient 09:29:37 OPTICAL DESIGNER Harinder Hernandez [facility] CPT-85120 Level 3 Est. Patient 15:51:07 CDT Harinder Hernandez [facility] CPT-91612 Level 3 Est. Patient 18:13:13 CDT Harinder Cr [facility] CPT-28942 Level 3 Est. Patient 10:44:19 CDT Harinder Cr [facility] CPT-51312 Level 4 Est. Patient 10:07:19 OPTICAL DESIGNER Harinder Cr [facility] CPT-04348 Level 3 Est. Patient 15:59:32 OPTICAL DESIGNER Harinder Cr [facility] Procedures Code Procedure Name Date Entry Date Standard Description CPT-06698 Port a cath flush 12:00:13 OPTICAL DESIGNER CPT-TCMM Transitional Care Mgmt-Moderate 11:20:16 OPTICAL DESIGNER CPT-66550 First Vx - Ix admin for Medicare patients 17:35:15 CDT CPT-43605 Fluzone Preservative Free Intramuscular Suspension 17:35 :15 CDT CPT-24889 Microalbumin - LAB USE ONLY 11:52:05 CDT CPT-TCMM Transitional Care Mgmt-Moderate 11:33:57 CDT CPT-59172 No Charge Offi Visit 14:11:29 CDT CPT-85899 Magnesium - LAB USE ONLY 10:45:44 CDT CPT-43936 Lipid - LAB USE ONLY 10:45:44 CDT CPT-10131 CBC - LAB USE ONLY 10:45:44 CDT CPT-02742 Venipuncture Draw Fee 10:45:43 CDT CPT-04001 Venipuncture Draw Fee 18:21:27 CDT CPT-JTINJ Asp/Joint Injection 18:38:04 CDT CPT-76460 Immunization Each Additional Inj 17:38:04 CDT CPT-30448 Immunization Single Admin 17:38:04 CDT CPT-83478 Prevnar 13 17:38:04 CDT CPT-42667 Fluzone Quadrivalent preservative free (>=3yrs.) 17:38: 04 CDT CPT-21494 No Charge Offi Visit 11:14:03 CDT CPT-01693 Chest 2V Frontal and Lat 14:00:18 CDT CPT-OV Office Visit 16:10:28 CDT CPT-JTINJ Asp/Joint Injection 09:03:57 CDT CPT-Cryo Cryotherapy 09:35:49 OPTICAL DESIGNER CPT-JTINJ Asp/Joint Injection 09:34:45 OPTICAL DESIGNER CPT-J2930 Solu Medrol 125 mg (Methyl Prednisolone Sodium Succinate) 20:37:27 CDT CPT-38715 Abx/Therapy Injection 20:37:27 CDT CPT-62663 Port a cath flush 08:15:51 T CPT-56673 Port a cath flush 09:54:16 T CPT-76565 Port a cath flush 09:38:02 T CPT-12941 Port a cath flush 11:00:27 [facility]
--- OUTSIDE RECORDS SUMMARY | 2017-12-29 03:36 | XMS REPORT | Clinical Summary ---
Author Author Admin, QIE Organization [facility] Address Unknown Phone Unavailable Allergies, Adverse Reactions, [...] tab po q day therafter. POTASSIUM CHLORIDE [id number] Active Kortney Mccain Active POTASSIUM CHLORIDE CR 10 MEQ CPCR 1 capsule BID POTASSIUM CHLORIDE 74659949580 No Longer Active Kortney Mccain Active LASIX 20 MG TAB 1 tablet by mouth every morning FUROSEMIDE 89834102755 No Longer Active Kortney Mccain Active SPIRONOLACTONE 25 MG TAB 1 tablet by mouth daily SPIRONOLACTONE 31677570771 Active Ciera Pimentel Active FLUOXETINE HCL 10 MG ORAL CAPS 1 po qd for depression/anxiety FLUOXETINE HCL 59570220511 Active Harinder Hernandez DO Active VOLTAREN 1 % GEL apply q 6-8 hour to left arm as needed for pain DICLOFENAC SODIUM 82630052632 Active Harinder Hernandez DO Active ALBUTEROL SULFATE 0.083 % NEBU SOLN 1 vial neb q 4hrs for severe asthma. 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 FLUTICASONE PROPIONATE HFA 69348278992 Active Harinder Hernandez DO Active EPIPEN 2-BRUNA 0.3 MG/0.3ML INJ SOAJ 1 INJ NEEDED EPINEPHRINE 02189817039 Active Harinder Hernandez DO Active PREDNISONE 20 MG TAB 1 tab twice daily for 3 day, then one daily for three days PREDNISONE 41708665353 No Longer Active Harinder Hernandez DO Active PREDNISONE 20 MG TAB 1 tablet twice daily for 2 days, then 1 tablet once daily for 2 days PREDNISONE 70600300080 No Longer Active Harinder Hernandez DO Active ASMANEX 120 METERED DOSES 220 MCG/INH INH AEPB 2 puffs orally twice daily MOMETASONE FUROATE 90680513883 Active Jeri Sosa LPN Active TOPIRAMATE 25 MG TABS 1 tab po BID TOPIRAMATE 45171811166 No Longer Active Nettie Newberry APRN Active AMLODIPINE BESYLATE 5 MG ORAL TABS Take 1 tab po daily AMLODIPINE BESYLATE 23736911660 No Longer Active Nettie Newberry APRN Active MECLIZINE HCL 25 MG TAB 1 tablet three times daily for 3 days, then 1/2 tab three times daily for 3 days. MECLIZINE HCL 52499192307 No Longer Active Nettie Newberry MAHENDRA Active AMITRIPTYLINE HCL 25 MG ORAL TABS 1 q hs prn AMITRIPTYLINE HCL 02629981668 No Longer Active Nettieog Newberry APRN Active DILAUDID 2 MG ORAL TABS Take 1/2 tab po every 4 hours as needed for pain 2014 HYDROMORPHONE HCL 23254508111 No Longer Active Nettie Newberry APRN Active CLOPIDOGREL BISULFATE 75 MG ORAL TABS 1 tab by mouth once daily CLOPIDOGREL BISULFATE 62772675327 Active Harinder Hernandez DO Active ATORVASTATIN CALCIUM 10 MG ORAL TABS 1 at bedtime ATORVASTATIN CALCIUM 83652745773 Active Tawnya Pardo MA Active LOVASTATIN 40 MG ORAL TABS Take 1 tab po every hs LOVASTATIN 56384993746 No Longer Active Harinder Hernandez DO Active PREDNISONE 20 MG TAB 2 tabs daily for 4 days, 1 tab daily for 4 days, 1/2 tab daily for 4 days PREDNISONE 52508197361 No Longer Active Harinder Hernandez DO Active LEVAQUIN 500 MG ORAL TABS Take 1 tab po daily x 8 days LEVOFLOXACIN 37876033797 No Longer Active Harinder Hernandez DO Active VENTOLIN HFA 108 (90 BASE) MCG/ACT AERS 2 -4 puffs four times a day PRN 2013 ALBUTEROL SULFATE 77682705150 No Longer Active Jeri Sosa LPN Active ACEBUTOLOL HCL 200 MG CAPS 1 cap in the morning and 2 caps in the evening ACEBUTOLOL HCL 37662001881 No Longer Active Harinder Hernandez DO Active CEFDINIR 300 MG ORAL CAPS take 1 cap po bid x 10 days CEFDINIR 50885882909 No Longer Active Harinder Hernandez DO Active LOVASTATIN 40 MG TABS 1 pill by mouth nightly for cholesterol LOVASTATIN 89016935754 No Longer Active Nettie Newberry MAHENDRA Active NITROSTAT 0.4 MG SUBL 1 tab under tongueas needed for chest pain ( may take 3 total, 5 min apart, then call 911) NITROGLYCERIN 48656488104 No Longer Active Nettie Newberry MAHENDRA Active POTASSIUM CHLORIDE CR 10 MEQ CPCR 1 capsule by mouth daily 02/14 POTASSIUM CHLORIDE 83140698483 [facility] TESSALON PERLES 100 MG CAP 1 to 2 tablets by mouth 3 times daily as needed for cough BENZONATATE 49315647160 No Longer Active Nettie Newberry MAHENDRA Active THEOPHYLLINE ER 200 MG ORAL [id number] Take 1 tab every 12 hours THEOPHYLLINE 59236814918 Active Harinder Hernandez DO Active PREDNISONE 20 MG TAB 2 po qd x 5 days PREDNISONE 26682233418 No Longer Active Jae Morgan MD Active AZITHROMYCIN 250 MG TABS 2 po qd x 1 day, then 1 po qd x 4 days AZITHROMYCIN 77855588488 No Longer Active Jae Morgan MD Active PREDNISONE 20 MG TAB 1 tab twice daily for 3 day, then one daily for three days PREDNISONE 36325538977 No Longer Active Jae Morgan MD Active SINGULAIR 10 MG TABS 1 pill by mouth every evening for breathing. MONTELUKAST SODIUM 54133516824 Active Tawnya Pardo MA Active TYLENOL 325 MG TAB 3 by mouth q4h as needed ACETAMINOPHEN 59622008793 Active Harinder Hernandez DO Active POTASSIUM CHLORIDE ER 10 MEQ CR-TABS take 1 tab po daily POTASSIUM CHLORIDE 70322778425 No Longer Active Harinder Hernandez DO Active PREDNISONE 20 MG TAB 1 TID x 2 days, then 1 BID x 3 days, then 1 Daily x 3 days, then stop PREDNISONE 60393568723 No Longer Active John Montemayor APRN Active LEVAQUIN 500 MG TAB 1 tablet by mouth daily LEVOFLOXACIN 90825198420 No Longer Active John Montemayor [employer] ENGINEER Active NEURONTIN 300 MG CAP 1 cap by mouth three times daily for restless leg 06/22 GABAPENTIN 93581088808 No Longer Active Harinder Hernandez DO Active BENZONATATE 100 MG CAPS 1 cap po TID PRN BENZONATATE 35473425822 No Longer Active Harinder Hernandez DO Active MONTELUKAST SODIUM 10 MG TABS 1 tab po in the evening MONTELUKAST SODIUM 73462222539 No Longer Active Harinder Hernandez DO Active MUPIROCIN 2 % OINT apply to affected area BID x 14 days MUPIROCIN 60372656811 No Longer Active Harinder Hernandez DO Active TYLENOL EXTRA STRENGTH 500 MG TABS as needed ACETAMINOPHEN 23864668256 No Longer Active Harinder Hernandez DO Active PREDNISONE 10 MG TABS 1 tab po daily PREDNISONE 15638480354 No Longer Active Harinder Hernandez DO Active PREDNISONE 20 MG TAB 2 tabs daily for 4 days, 1 tab daily for 4 days, 1/2 tab daily for 4 days PREDNISONE 79214413772 No Longer Active Harinder Hernandez DO Active AZITHROMYCIN 250 MG TABS 2 po qd x 1 day, then 1 po qd x 4 days AZITHROMYCIN 46609141926 No Longer Active Harinder Hernandez DO Active PREDNISONE 20 MG TAB 3 tabs today, then 1 tab twice daily for 3 day, then one daily for three days PREDNISONE 29861191050 No Longer Active Harinder Hernandez DO Active NIFEDIAC CC 30 MG [id number] 1 tablet daily for raynaud's syndrome NIFEDIPINE 97780051487 No Longer Active Tawnya Pardo MA Active AMBIEN 10 MG TAB 1/2 tab by mouth at bedtime as needed for sleep ZOLPIDEM TARTRATE 56684155033 Active Harinder Hernandez DO Active CLONAZEPAM 1 MG TABS 1 tablet at bedtime for insomnia and restless legs 09/14 CLONAZEPAM 12567944478 Active Harinder Hernandez DO Active CLONAZEPAM 0.5 MG TABS 1 tab po daily CLONAZEPAM 53197667368 No Longer Active Harinder Hernandez DO Active PREDNISONE 10 MG TAB 1 tablet daily for COPD PREDNISONE 77317270702 Active Harinder Hernandez DO Active PROAIR HFA 108 (90 BASE) MCG/ACT AERS 2 puffs four times a day as needed 2012 ALBUTEROL SULFATE 18522528682 Active Harinder Hernandez DO Active FLOVENT HFA 110 MCG/ACT AERO 2 puffs inhaled b.i.d. FLUTICASONE PROPIONATE HFA 82245465808 Active Kortney Mccain Active ACIPHEX 20 MG TBEC 1 tab po daily RABEPRAZOLE SODIUM 84563279444 Active Kaylah Newberry Active CLONAZEPAM 0.5 MG TABS 1 tab po daily CLONAZEPAM 0.5 MG TABS 793159 CLONAZEPAM Inactive PREDNISONE 20 MG TAB 3 tabs today, then 1 tab twice daily for 3 day, then one daily for three days PREDNISONE 20 MG TAB 326813 PREDNISONE Inactive PREDNISONE 20 MG TAB 2 tabs daily for 4 days, 1 tab daily for 4 days, 1/2 tab daily for 4 days PREDNISONE 20 MG TAB 441477 PREDNISONE Inactive PREDNISONE 10 MG TABS 1 tab po daily PREDNISONE 10 MG TABS 359147 PREDNISONE Inactive TYLENOL EXTRA STRENGTH 500 MG TABS as needed TYLENOL EXTRA STRENGTH 500 MG TABS 418500 ACETAMINOPHEN Inactive MUPIROCIN 2 % OINT apply to affected area BID x 14 days MUPIROCIN 2 % OINT 644719 MUPIROCIN Inactive MONTELUKAST SODIUM 10 MG TABS 1 tab po in the evening MONTELUKAST SODIUM 10 MG TABS 20010818 MONTELUKAST SODIUM Inactive BENZONATATE 100 MG CAPS 1 cap po TID PRN BENZONATATE 100 MG CAPS 750483 BENZONATATE Inactive NEURONTIN 300 MG CAP 1 cap by mouth three times daily for restless leg 06/22 NEURONTIN 300 MG CAP 729588 GABAPENTIN Inactive LEVAQUIN 500 MG TAB 1 tablet by mouth daily LEVAQUIN 500 MG TAB 159907 LEVOFLOXACIN Inactive PREDNISONE 20 MG TAB 1 TID x 2 days, then 1 BID x 3 days, then 1 Daily x 3 days, then stop PREDNISONE 20 MG TAB 817379 PREDNISONE Inactive POTASSIUM CHLORIDE ER 10 MEQ CR-TABS take 1 tab po daily POTASSIUM CHLORIDE ER 10 MEQ CR-TABS POTASSIUM CHLORIDE Inactive PREDNISONE 20 MG TAB 1 tab twice daily for 3 day, then one daily for three days PREDNISONE 20 MG TAB 128398 PREDNISONE Inactive TESSALON PERLES 100 MG CAP 1 to 2 tablets by mouth 3 times daily as needed for cough TESSALON PERLES 100 MG CAP 502861 BENZONATATE Inactive POTASSIUM CHLORIDE CR 10 MEQ CPCR 1 capsule by mouth daily 02/14 POTASSIUM CHLORIDE CR 10 MEQ CPCR POTASSIUM CHLORIDE Inactive NITROSTAT 0.4 MG SUBL 1 tab under tongueas needed for chest pain ( may take 3 total, 5 min apart, then call 911) NITROSTAT 0.4 MG SUBL 866060 NITROGLYCERIN Inactive LOVASTATIN 40 MG TABS 1 pill by mouth nightly for cholesterol LOVASTATIN 40 MG TABS 800372 LOVASTATIN Inactive CEFDINIR 300 MG ORAL CAPS take 1 cap po bid x 10 days CEFDINIR 300 MG ORAL CAPS 305588 CEFDINIR Inactive ACEBUTOLOL HCL 200 MG CAPS 1 cap in the morning and 2 caps in the evening ACEBUTOLOL HCL 200 MG CAPS 942644 ACEBUTOLOL HCL Inactive VENTOLIN HFA 108 (90 BASE) MCG/ACT AERS 2 -4 puffs four times a day PRN 2013 VENTOLIN HFA 108 (90 BASE) MCG/ACT AERS ALBUTEROL SULFATE Inactive LEVAQUIN 500 MG ORAL TABS Take 1 tab po daily x 8 days LEVAQUIN 500 MG ORAL TABS 932489 LEVOFLOXACIN Inactive PREDNISONE 20 MG TAB 2 tabs daily for 4 days, 1 tab daily for 4 days, 1/2 tab daily for 4 days PREDNISONE 20 MG TAB 053960 PREDNISONE Inactive LOVASTATIN 40 MG ORAL TABS Take 1 tab po every hs LOVASTATIN 40 MG ORAL TABS 739287 LOVASTATIN Inactive DILAUDID 2 MG ORAL TABS Take 1/2 tab po every 4 hours as needed for pain 2014 DILAUDID 2 MG ORAL TABS 596438 HYDROMORPHONE HCL Inactive AMITRIPTYLINE HCL 25 MG ORAL TABS 1 q hs prn AMITRIPTYLINE HCL 25 MG ORAL TABS 008822 AMITRIPTYLINE HCL Inactive MECLIZINE HCL 25 MG TAB 1 tablet three times daily for 3 days, then 1/2 tab three times daily for 3 days. MECLIZINE HCL 25 MG TAB 158971 MECLIZINE HCL Inactive AMLODIPINE BESYLATE 5 MG ORAL TABS Take 1 tab po daily AMLODIPINE BESYLATE 5 MG ORAL TABS 802784 AMLODIPINE BESYLATE Inactive TOPIRAMATE 25 MG TABS 1 tab po BID TOPIRAMATE 25 MG TABS 064033 TOPIRAMATE Inactive PREDNISONE 20 MG TAB 1 tablet twice daily for 2 days, then 1 tablet once daily for 2 days PREDNISONE 20 MG TAB 792383 PREDNISONE Inactive PREDNISONE 20 MG TAB 1 tab twice daily for 3 day, then one daily for three days PREDNISONE 20 MG TAB 513720 PREDNISONE Inactive NIFEDIPINE ER 30 MG ORAL [id number] 1 daily NIFEDIPINE ER 30 MG ORAL [id number] NIFEDIPINE Inactive AMLODIPINE BESYLATE 5 MG TABS 1 tablet by mouth daily AMLODIPINE BESYLATE 5 MG TABS 951377 AMLODIPINE BESYLATE Inactive LASIX 20 MG TAB 1 tablet by mouth every morning LASIX 20 MG TAB 043238 FUROSEMIDE Inactive POTASSIUM CHLORIDE CR 10 MEQ CPCR 1 capsule BID POTASSIUM CHLORIDE CR 10 MEQ CPCR POTASSIUM CHLORIDE Inactive AZITHROMYCIN 250 MG TABS 2 po qd x 1 day, then 1 po qd x 4 days AZITHROMYCIN 250 MG TABS 8107420 AZITHROMYCIN Inactive AZITHROMYCIN 250 MG TABS 2 po qd x 1 day, then 1 po qd x 4 days AZITHROMYCIN 250 MG TABS 8876643 AZITHROMYCIN Inactive PREDNISONE 20 MG TAB 2 po qd x 5 days PREDNISONE 20 MG TAB 380876 PREDNISONE Inactive Vital Signs Date Name Value [...] Panel - Chemistry sodium, serum 137 mmol/L 148-523 0874/01/03 potassium, serum 3.4 mmol/L 3.5-5.2 chloride, serum 102 mmol/L 98-107 carbon dioxide, venous blood 29.2 mmol/L 21.0-32.0 blood glucose 87 mg/dL 65-110 calcium, serum 8.5 mg/dL 8.5-10.1 urea nitrogen, blood 8 mg/dL 7-18 creatinine, serum 0.82 mg/dL 0.55-1.30 sodium, serum 140 mmol/L 681-268 5080/07/13 potassium, serum 3.2 mmol/L 3.5-5.2 chloride, serum 103 mmol/L 98-107 carbon dioxide, venous blood 26.9 mmol/L 21.0-32.0 blood glucose 93 mg/dL 65-110 calcium, serum 9.2 mg/dL 8.5-10.1 urea nitrogen, blood 13 mg/dL 7-18 creatinine, serum 0.84 mg/dL 0.60-1.30 sodium, serum 140 mmol/L 349-366 7148/08/21 potassium, serum 3.8 mmol/L 3.5-5.2 chloride, serum [...] ... - Chemistry sodium, serum 141 mmol/L 738-743 0007/08/07 carbon dioxide, venous blood 34.0 mmol/L 21.0-32.0 [...] 0-19 Encounters Code Encounter Date Provider Facility CPT-50748 Level 4 Est. Patient 14:45:25 CDT Harinder Cr [facility] CPT-01039 Level 4 Est. Patient 09:15:13 CDT Harinder Cr [facility] CPT-88612 Level 3 Est. Patient 11:51:58 CDT Harinder Cr [facility] CPT-45245 Level 3 Est. Patient 11:30:05 CDT Harinder Cr [facility] CPT-11430 Level 4 Est. Patient 10:19:23 CDT Harinder Cr [facility] CPT-86480 Level 3 Est. Patient 09:58:58 CDT Harinder Cr [facility] CPT-95834 Level 3 Est. Patient 12:37:21 CDT Harinder Cr [facility] CPT-39836 Level 3 Est. Patient 18:37:17 CDT Harinder Cr [facility] CPT-22783 Level 4 Est. Patient 11:15:54 CDT Nettie Rohith [facility] CPT-35650 Level 3 Est. Patient 16:42:24 CDT Harinder Cr [facility] CPT-89132 Level 3 Est. Patient 15:03:36 CDT Harinder Cr [facility] CPT-30001 Level 3 Est. Patient 15:03:20 CDT Harinder Cr [facility] CPT-18425 Level 3 Est. Patient 12:14:34 CDT Harinder Cr [facility] CPT-42484 Level 3 Est. Patient 13:47:15 CDT Harinder Cr [facility] CPT-63114 Level 3 Est. Patient 14:08:24 CDT Harinder Hernandez [facility] CPT-30322 Level 3 Est. Patient 10:07:15 CDT Harinder Hernandez [facility] CPT-67215 Level 3 Est. Patient 10:06:59 CDT Harinder Hernandez [facility] CPT-77673 Level 3 Est. Patient 15:53:29 CDT Jae Morgan MD [facility] CPT-03662 Level 3 Est. Patient 17:19:04 CDT Harinder Hernandez [facility] CPT-38648 Level 3 Est. Patient 11:13:01 CDT Harinder Hernandez [facility] CPT-96811 Level 3 Est. Patient 09:03:58 CDT Harinder Hernandez [facility] CPT-90895 Level 3 Est. Patient 14:46:45 [employer] Harinder Hernandez [facility] CPT-19029 Level 3 Est. Patient 09:35:49 [employer] Harinder Hernandez [facility] CPT-58047 Level 3 Est. Patient 09:29:37 [employer] Harinder Hernandez [facility] CPT-51091 Level 3 Est. Patient 15:51:07 CDT Harinder Hernandez [facility] CPT-84712 Level 3 Est. Patient 18:13:13 CDT Harinder Hernandez [facility] CPT-39501 Level 3 Est. Patient 10:44:19 CDT Harinder Cr [facility] CPT-64106 Level 4 Est. Patient 10:07:19 [employer] Harinder Hernandez [facility] CPT-63228 Level 3 Est. Patient 15:59:32 [employer] Harinder Cr [facility] Procedures Code Procedure Name Date Entry Date Standard Description CPT-08778 Abd compl w upright - XRAY USE ONLY 14:48:09 CDT 02/18 CPT-70158 Port a cath flush 13:46:05 CDT CPT-47471 Hip, complete, 2-3 views - XRAY USE ONLY 10:28:40 CDT CPT-55994 BMP - LAB USE ONLY 16:45:09 [employer] CPT-80547 Port a cath flush 12:00:13 [employer] CPT-TCMM Transitional Care Mgmt-Moderate 11:20:16 [employer] CPT-25212 First Vx - Ix admin for Medicare patients 17:35:15 CDT CPT-33661 Fluzone Preservative Free Intramuscular Suspension 17:35 :15 CDT CPT-38361 Microalbumin - LAB USE ONLY 11:52:05 CDT CPT-TCMM Transitional Care Mgmt-Moderate 11:33:57 CDT CPT-17315 No Charge Offi Visit 14:11:29 CDT CPT-60894 Magnesium - LAB USE ONLY 10:45:44 CDT CPT-66088 Lipid - LAB USE ONLY 10:45:44 CDT CPT-93849 CBC - LAB USE ONLY 10:45:44 CDT CPT-40721 Venipuncture Draw Fee 10:45:43 CDT CPT-17310 Venipuncture Draw Fee 18:21:27 CDT CPT-JTINJ Asp/Joint Injection 18:38:04 CDT CPT-15198 Immunization Each Additional Inj 17:38:04 CDT CPT-02683 Immunization Single Admin 17:38:04 CDT CPT-85295 Prevnar 13 17:38:04 CDT CPT-79270 Fluzone Quadrivalent preservative free (>=3yrs.) 17:38: 04 CDT CPT-82373 No Charge Offi Visit 11:14:03 CDT CPT-24572 Chest 2V Frontal and Lat 14:00:18 CDT CPT-OV Office Visit 16:10:28 CDT CPT-JTINJ Asp/Joint Injection 09:03:57 CDT CPT-Cryo Cryotherapy 09:35:49 [employer] CPT-JTINJ Asp/Joint Injection 09:34:45 [employer] CPT-J2930 Solu Medrol 125 mg (Methyl Prednisolone Sodium Succinate) 20:37:27 CDT CPT-13209 Abx/Therapy Injection 20:37:27 CDT CPT-66149 Port a cath flush 08:15:51 CDT CPT-31970 Port a cath flush 09:54:16 CDT CPT-54485 Port a cath flush 09:38:02 CDT CPT-66203 Port a cath flush 11:00:27 [employer]ER
--- OUTSIDE RECORDS SUMMARY | 2017-12-29 03:37 | XMS REPORT | Clinical Summary ---
[...] and adjustment of vascular catheter V58.81 Resolved Hrainder Hernandez DO Encounter for fitting and adjustment [...] Patient Instruction NIFEDIPINE ER 30 MG ORAL [id number] 1 daily NIFEDIPINE 42929026706 Active Nettie Newberry APRN Active TOPIRAMATE 25 MG TABS 1 tab po BID TOPIRAMATE 82984893925 No Longer Active Nettie Newberry APRN Active AMLODIPINE BESYLATE 5 MG ORAL TABS Take 1 tab po daily AMLODIPINE BESYLATE 30950155895 No Longer Active Nettie Newberry APRN Active MECLIZINE HCL 25 MG TAB 1 tablet three times daily for 3 days, then 1/2 tab three times daily for 3 days. MECLIZINE HCL 42679380156 No Longer Active Nettie Newberry APRN Active AMITRIPTYLINE HCL 25 MG ORAL TABS 1 q hs prn AMITRIPTYLINE HCL 22965917190 No Longer Active Nettie Newberry MAHENDRA Active DILAUDID 2 MG ORAL TABS Take 1/2 tab po every 4 hours as needed for pain 2014 HYDROMORPHONE HCL 65114660563 No Longer Active Nettie Rohith MAHENDRA Active CLOPIDOGREL BISULFATE 75 MG ORAL TABS 1 tab by mouth once daily CLOPIDOGREL BISULFATE 39486084973 Active Harinder Hernandez DO Active ATORVASTATIN CALCIUM 10 MG ORAL TABS 1 at bedtime ATORVASTATIN CALCIUM 18365713704 Active Harinder Hernandez DO Active LOVASTATIN 40 MG ORAL TABS Take 1 tab po every hs LOVASTATIN 78167658114 No Longer Active Harinder Hernandez DO Active PREDNISONE 20 MG TAB 2 tabs daily for 4 days, 1 tab daily for 4 days, 1/2 tab daily for 4 days PREDNISONE 18306875234 No Longer Active Harinder Hernandez DO Active LEVAQUIN 500 MG ORAL TABS Take 1 tab po daily x 8 days LEVOFLOXACIN 12476445323 No Longer Active Harinder Hernandez DO Active VENTOLIN HFA 108 (90 BASE) MCG/ACT AERS 2 -4 puffs four times a day PRN 2013 ALBUTEROL SULFATE 58695213290 No Longer Active Jeri Sosa RPT,RMA Active ACEBUTOLOL HCL 200 MG CAPS 1 cap in the morning and 2 caps in the evening ACEBUTOLOL HCL 41314993469 No Longer Active Harinder Hernandez DO Active CEFDINIR 300 MG ORAL CAPS take 1 cap po bid x 10 days CEFDINIR 93346613905 No Longer Active Harinder Hernandez DO Active LOVASTATIN 40 MG TABS 1 pill by mouth nightly for cholesterol LOVASTATIN 12214575791 No Longer Active Nettie Newberry APRN Active NITROSTAT 0.4 MG SUBL 1 tab under tongueas needed for chest pain ( may take 3 total, 5 min apart, then call 911) NITROGLYCERIN 03408791005 No Longer Active Nettie Newberry APRN Active POTASSIUM CHLORIDE CR 10 MEQ CPCR 1 capsule by mouth daily 02/14 POTASSIUM CHLORIDE 47561908925 No Longer Active Nettie King MAHEDNRA Active TESSALON PERLES 100 MG CAP 1 to 2 tablets by mouth 3 times daily as needed for cough BENZONATATE 77290632953 No Longer Active Nettie Newberry APRN Active THEOPHYLLINE ER 200 MG ORAL [id number] Take 1 tab every 12 hours THEOPHYLLINE 61204579956 Active Tawnya Pardo MA Active PREDNISONE 20 MG TAB 2 po qd x 5 days PREDNISONE 33655265326 No Longer Active Jae Morgan MD Active AZITHROMYCIN 250 MG TABS 2 po qd x 1 day, then 1 po qd x 4 days AZITHROMYCIN 57150131742 No Longer Active Jae Morgan MD Active PREDNISONE 20 MG TAB 1 tab twice daily for 3 day, then one daily for three days PREDNISONE 15833951414 No Longer Active Jae Morgan MD Active SINGULAIR 10 MG TABS 1 pill by mouth every evening for breathing. MONTELUKAST SODIUM 00194902104 Active Tawnya Pardo MA Active TYLENOL 325 MG TAB 3 by mouth q4h as needed ACETAMINOPHEN 91309264016 Active Harinder Hernandez DO Active POTASSIUM CHLORIDE ER 10 MEQ CR-TABS take 1 tab po daily POTASSIUM CHLORIDE 75699732999 No Longer Active Harinder Hernandez DO Active PREDNISONE 20 MG TAB 1 TID x 2 days, then 1 BID x 3 days, then 1 Daily x 3 days, then stop PREDNISONE 33586076627 No Longer Active Jillina Frashai MCCRAY Active LEVAQUIN 500 MG TAB 1 tablet by mouth daily LEVOFLOXACIN 40446962515 No Longer Active Jillina Frazell MAHENDRA Active NEURONTIN 300 MG CAP 1 cap by mouth three times daily for restless leg 06/22 GABAPENTIN 49374361621 No Longer Active Harinder Hernandez DO Active BENZONATATE 100 MG CAPS 1 cap po TID PRN BENZONATATE 35210897583 No Longer Active Harinder Hernandez DO Active MONTELUKAST SODIUM 10 MG TABS 1 tab po in the evening MONTELUKAST SODIUM 62314974173 No Longer Active Harinder Hernandez DO Active MUPIROCIN 2 % OINT apply to affected area BID x 14 days MUPIROCIN 64840315640 No Longer Active Harinder Hernandez DO Active TYLENOL EXTRA STRENGTH 500 MG TABS as needed ACETAMINOPHEN 39650039543 No Longer Active Harinder Hernandez DO Active PREDNISONE 10 MG TABS 1 tab po daily PREDNISONE 37989055558 No Longer Active Harinder Hernandez DO Active PREDNISONE 20 MG TAB 2 tabs daily for 4 days, 1 tab daily for 4 days, 1/2 tab daily for 4 days PREDNISONE 56933767757 No Longer Active Harinder Hernandez DO Active AZITHROMYCIN 250 MG TABS 2 po qd x 1 day, then 1 po qd x 4 days AZITHROMYCIN 52241276354 No Longer Active Harinder Hernandez DO Active PREDNISONE 20 MG TAB 3 tabs today, then 1 tab twice daily for 3 day, then one daily for three days PREDNISONE 66390403424 No Longer Active Harinder Hernandez DO Active NIFEDIAC CC 30 MG [id number] 1 tablet daily for raynaud's syndrome NIFEDIPINE 27082236570 No Longer Active Tawnya Pardo MA Active AMBIEN 10 MG TAB 1/2 tab by mouth at bedtime as needed for sleep ZOLPIDEM TARTRATE 05326511155 Active Harinder Hernandez DO Active CLONAZEPAM 1 MG TABS 1 tablet at bedtime for insomnia and restless legs 09/14 CLONAZEPAM 42491202782 Active Harinder Hernandez DO Active CLONAZEPAM 0.5 MG TABS 1 tab po daily CLONAZEPAM 93482789283 No Longer Active Harinder Hernandez DO Active PREDNISONE 10 MG TAB 1 tablet daily for COPD PREDNISONE 96741936912 Active Tawnya Pardo MA Active PROAIR HFA 108 (90 BASE) MCG/ACT AERS 2 puffs four times a day as needed 2012 ALBUTEROL SULFATE 94982385505 Active Tawnya Pardo MA Active FLOVENT HFA 110 MCG/ACT AERO 2 puffs inhaled b.i.d. FLUTICASONE PROPIONATE HFA 46120032733 Active Tawnya Pardo MA Active EPIPEN 0.3 MG/0.3ML URIEL DIRECTED EPINEPHRINE Active Demetrius JOHNSON Active ACIPHEX 20 MG TBEC 1 tab po daily RABEPRAZOLE SODIUM 58991616712 Active Tawnya Pardo MA Active CLONAZEPAM 0.5 MG TABS 1 tab po daily CLONAZEPAM 0.5 MG TABS 559822 CLONAZEPAM Inactive PREDNISONE 20 MG TAB 3 tabs today, then 1 tab twice daily for 3 day, then one daily for three days PREDNISONE 20 MG TAB 878926 PREDNISONE Inactive PREDNISONE 20 MG TAB 2 tabs daily for 4 days, 1 tab daily for 4 days, 1/2 tab daily for 4 days PREDNISONE 20 MG TAB 300168 PREDNISONE Inactive PREDNISONE 10 MG TABS 1 tab po daily PREDNISONE 10 MG TABS 042839 PREDNISONE Inactive TYLENOL EXTRA STRENGTH 500 MG TABS as needed TYLENOL EXTRA STRENGTH 500 MG TABS 055033 ACETAMINOPHEN Inactive MUPIROCIN 2 % OINT apply to affected area BID x 14 days MUPIROCIN 2 % OINT 075734 MUPIROCIN Inactive MONTELUKAST SODIUM 10 MG TABS 1 tab po in the evening MONTELUKAST SODIUM 10 MG TABS 20010818 MONTELUKAST SODIUM Inactive BENZONATATE 100 MG CAPS 1 cap po TID PRN BENZONATATE 100 MG CAPS 19730321 BENZONATATE Inactive NEURONTIN 300 MG CAP 1 cap by mouth three times daily for restless leg 06/22 NEURONTIN 300 MG CAP 448610 GABAPENTIN Inactive LEVAQUIN 500 MG TAB 1 tablet by mouth daily LEVAQUIN 500 MG TAB 648211 LEVOFLOXACIN Inactive PREDNISONE 20 MG TAB 1 TID x 2 days, then 1 BID x 3 days, then 1 Daily x 3 days, then stop PREDNISONE 20 MG TAB 180746 PREDNISONE Inactive POTASSIUM CHLORIDE ER 10 MEQ CR-TABS take 1 tab po daily POTASSIUM CHLORIDE ER 10 MEQ CR-TABS POTASSIUM CHLORIDE Inactive PREDNISONE 20 MG TAB 1 tab twice daily for 3 day, then one daily for three days PREDNISONE 20 MG TAB 246627 PREDNISONE Inactive TESSALON PERLES 100 MG CAP 1 to 2 tablets by mouth 3 times daily as needed for cough TESSALON PERLES 100 MG CAP 716114 BENZONATATE Inactive POTASSIUM CHLORIDE CR 10 MEQ [...] nightly for cholesterol LOVASTATIN 40 MG TABS 377370 LOVASTATIN Inactive CEFDINIR 300 MG ORAL CAPS take 1 cap po bid x 10 days CEFDINIR 300 MG ORAL CAPS 516184 CEFDINIR Inactive ACEBUTOLOL HCL 200 MG CAPS 1 cap in the morning and 2 caps in the evening ACEBUTOLOL HCL 200 MG CAPS 822111 ACEBUTOLOL HCL Inactive VENTOLIN HFA 108 (90 BASE) MCG/ACT AERS 2 -4 puffs four times a day PRN 2013 VENTOLIN HFA 108 (90 BASE) MCG/ACT AERS ALBUTEROL SULFATE Inactive LEVAQUIN 500 MG ORAL TABS Take 1 tab po daily x 8 days LEVAQUIN 500 MG ORAL TABS 551434 LEVOFLOXACIN Inactive PREDNISONE 20 MG TAB 2 tabs daily for 4 days, 1 tab daily for 4 days, 1/2 tab daily for 4 days PREDNISONE 20 MG TAB 970765 PREDNISONE Inactive LOVASTATIN 40 MG ORAL TABS Take 1 tab po every hs LOVASTATIN 40 MG ORAL TABS 016132 LOVASTATIN Inactive DILAUDID 2 MG ORAL TABS Take 1/2 tab po every 4 hours as needed for pain 2014 DILAUDID 2 MG ORAL TABS 526269 HYDROMORPHONE HCL Inactive AMITRIPTYLINE HCL 25 MG ORAL TABS 1 q hs prn AMITRIPTYLINE HCL 25 MG ORAL TABS 187345 AMITRIPTYLINE HCL Inactive MECLIZINE HCL 25 MG TAB 1 tablet three times daily for 3 days, then 1/2 tab three times daily for 3 days. MECLIZINE HCL 25 MG TAB 157995 MECLIZINE HCL Inactive AMLODIPINE BESYLATE 5 MG ORAL TABS Take 1 tab po daily AMLODIPINE BESYLATE 5 MG ORAL TABS 167048 AMLODIPINE BESYLATE Inactive TOPIRAMATE 25 MG TABS 1 tab po BID TOPIRAMATE 25 MG TABS 479230 TOPIRAMATE Inactive AZITHROMYCIN 250 MG TABS 2 po qd x 1 day, then 1 po qd x 4 days AZITHROMYCIN 250 MG TABS 5625999 AZITHROMYCIN Inactive AZITHROMYCIN 250 MG TABS 2 po qd x 1 day, then 1 po qd x 4 days AZITHROMYCIN 250 MG TABS 5337348 AZITHROMYCIN Inactive PREDNISONE 20 MG TAB 2 po qd x 5 days PREDNISONE 20 MG TAB 907766 PREDNISONE Inactive Vital Signs Date Name Value [...] pressure, diastolic - 8462-4 75 mm[Hg] BP aadn blood pressure, systolic - 8480-6 126 mm[Hg] [...] Panel - Chemistry sodium, serum 138 mmol/L 549-604 5466/09/24 potassium, serum 3.5 mmol/L 3.5-5.2 chloride, serum [...] 142-424 Encounters Code Encounter Date Provider Facility CPT-14731 Level 4 Est. Patient 11:15:54 CDT Nettie Newberry APRN [facility] CPT-65097 Level 3 Est. Patient 16:42:24 CDT Harinder Cr [facility] CPT-34822 Level 3 Est. Patient 15:03:36 CDT Harinder Hernandez [facility] CPT-26258 Level 3 Est. Patient 15:03:20 CDT Harinder Cr [facility] CPT-54681 Level 3 Est. Patient 12:14:34 CDT Harinder Hernandez [facility] CPT-47018 Level 3 Est. Patient 13:47:15 CDT Harinder Cr [facility] CPT-04040 Level 3 Est. Patient 14:08:24 CDT Harinder Hernandez [facility] CPT-18500 Level 3 Est. Patient 10:07:15 CDT Harinder Hernandez [facility] CPT-01655 Level 3 Est. Patient 10:06:59 CDT Harinder Hernandez [facility] CPT-57553 Level 3 Est. Patient 15:53:29 CDT Jae Morgan MD [facility] CPT-17421 Level 3 Est. Patient 17:19:04 CDT Harinder Hernandez [facility] CPT-02298 Level 3 Est. Patient 11:13:01 CDT Harinder Hernandez [facility] CPT-15792 Level 3 Est. Patient 09:03:58 CDT Harinder Hernandez [facility] CPT-82618 Level 3 Est. Patient 14:46:45 MAP MAKER Harinder Hernandez [facility] CPT-85050 Level 3 Est. Patient 09:35:49 MAP MAKER Harinder Hernandez [facility] CPT-11310 Level 3 Est. Patient 09:29:37 MAP MAKER Harinder Hernandez [facility] CPT-02836 Level 3 Est. Patient 15:51:07 CDT Harinder Hernandez [facility] CPT-77293 Level 3 Est. Patient 18:13:13 CDT Harinder Cr [facility] CPT-76091 Level 3 Est. Patient 10:44:19 CDT Harinder Hernandez [facility] CPT-94747 Level 4 Est. Patient 10:07:19 MAP MAKER Harinder Cr [facility] CPT-41302 Level 3 Est. Patient 15:59:32 MAP MAKER Harinder Cr [facility] Procedures Code Procedure Name Date Entry Date Standard Description CPT-28051 Immunization Each Additional Inj 17:38:04 CDT CPT-68608 Immunization Single Admin 17:38:04 CDT CPT-28348 Prevnar 13 17:38:04 CDT CPT-74933 Fluzone Quadrivalent preservative free (>=3yrs.) 17:38: 04 CDT CPT-55820 No Charge Offi Visit 11:14:03 CDT CPT-24863 Chest 2V Frontal and Lat 14:00:18 CDT CPT-OV Office Visit 16:10:28 CDT CPT-JTINJ Asp/Joint Injection 09:03:57 CDT CPT-Cryo Cryotherapy 09:35:49 MAP MAKER CPT-JTINJ Asp/Joint Injection 09:34:45 MAP MAKER CPT-J2930 Solu Medrol 125 mg (Methyl Prednisolone Sodium Succinate) 20:37:27 CDT CPT-41675 Abx/Therapy Injection 20:37:27 CDT CPT-36923 Port a cath flush 08:15:51 CDT CPT-62039 Port a cath flush 09:54:16 CDT CPT-80741 Port a cath flush 09:38:02 CDT CPT-66765 Port a cath flush 11:00:27 MAP MAKER
--- OUTSIDE RECORDS SUMMARY | 2017-12-29 03:38 | XMS REPORT | Clinical Summary ---
Author Author Admin, KAIN Organization [facility] Address Unknown Phone Unavailable Allergies, Adverse [...] positional vertigo Colon cancer screening V76.51 Active [facility] DEPENDENCY DIRECTOR Screening for malignant neoplasms of colon Screening for malignant neoplasm, colon V76.51 Active [facility] DEPENDENCY DIRECTOR Screening for malignant neoplasms of colon Pneumonia 486 Active Harinder Hernandez DO Pneumonia, organism unspecified Bacteremia 790.7 Active Harinder Hernandez DO Unspecified bacteremia Clostridium difficile colitis 008.45 Active Harinder Hernandez DO Intestinal infection due to clostridium difficile Abdominal pain, right lower quadrant 789.03 Active Harinder Hernandez DO Abdominal pain, right lower quadrant Needs vaccination for influenza V04.81 Active 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 Melonie HUMAN RESOURCES TECHNICIAN Need for prophylactic vaccination and inoculation against influenza Need for prophylactic vaccination against streptococcus pneumoniae ( Pneumococcus) V03.82 Active 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 Melonie HUMAN RESOURCES TECHNICIAN Need for prophylactic vaccination against Streptococcus [...] Take 1 tab po every hs LOVASTATIN 78294495957 Active Johny Dawkins MD Active AMLODIPINE BESYLATE 5 MG ORAL TABS Take 1 tab po daily AMLODIPINE BESYLATE 55413373638 Active Tawnya Pardo MA Active VENTOLIN HFA 108 (90 BASE) MCG/ACT AERS 2 -4 puffs four times a day PRN 2013 ALBUTEROL SULFATE 88320500043 No Longer Active Jeri Sosa RPT,RMA Active DILAUDID 2 MG ORAL TABS Take 1/2 tab po every 4 hours as needed for pain 2014 HYDROMORPHONE HCL 18401129961 Active Harinder Hernandez DO Active ACEBUTOLOL HCL 200 MG CAPS 1 cap in the morning and 2 caps in the evening ACEBUTOLOL HCL 14989375963 No Longer Active Harinder Hernandez DO Active CEFDINIR 300 MG ORAL CAPS take 1 cap po bid x 10 days CEFDINIR 06816536542 No Longer Active Harinder Hernandez DO Active AMITRIPTYLINE HCL 25 MG ORAL TABS 1 q hs prn AMITRIPTYLINE HCL 05554039579 Active Tawnya Pardo MA Active LOVASTATIN 40 MG TABS 1 pill by mouth nightly for cholesterol LOVASTATIN 54028910715 No Longer Active Nettie Newberry APRN Active NITROSTAT 0.4 MG SUBL 1 tab under tongueas needed for chest pain ( may take 3 total, 5 min apart, then call 911) NITROGLYCERIN 13996493988 No Longer Active Nettie Newberry APRN Active POTASSIUM CHLORIDE CR 10 MEQ CPCR 1 capsule by mouth daily 02/14 POTASSIUM CHLORIDE 83334213924 No Longer Active Nettie Newberry APRN Active TESSALON PERLES 100 MG CAP 1 to 2 tablets by mouth 3 times daily as needed for cough BENZONATATE 69914367665 No Longer Active Nettie Newberry APRN Active THEOPHYLLINE ER 200 MG ORAL [id number] Take 1 tab every 12 hours THEOPHYLLINE 59141776267 Active Tawnya Pardo MA Active PREDNISONE 20 MG TAB 2 po qd x 5 days PREDNISONE 98706200665 No Longer Active Jae Morgan MD Active AZITHROMYCIN 250 MG TABS 2 po qd x 1 day, then 1 po qd x 4 days AZITHROMYCIN 82549310293 No Longer Active Jae Morgan MD Active PREDNISONE 20 MG TAB 1 tab twice daily for 3 day, then one daily for three days PREDNISONE 04641592632 No Longer Active Jae Morgan MD Active MECLIZINE HCL 25 MG TAB 1 tablet three times daily for 3 days, then 1/2 tab three times daily for 3 days. MECLIZINE HCL 20747641409 Active Harinder Hernandez DO Active SINGULAIR 10 MG TABS 1 pill by mouth every evening for breathing. MONTELUKAST SODIUM 88453011659 Active Tawnya Pardo MA Active TYLENOL 325 MG TAB 3 by mouth q4h as needed ACETAMINOPHEN 91939719452 Active Harinder Hernandez DO Active POTASSIUM CHLORIDE ER 10 MEQ CR-TABS take 1 tab po daily POTASSIUM CHLORIDE 18529498653 No Longer Active Harinder Hernandez DO Active PREDNISONE 20 MG TAB 1 TID x 2 days, then 1 BID x 3 days, then 1 Daily x 3 days, then stop PREDNISONE 09356954313 No Longer Active Jillina Frazell DEPENDENCY DIRECTOR Active LEVAQUIN 500 MG TAB 1 tablet by mouth daily LEVOFLOXACIN 51494770557 No Longer Active Jillina Frazell DEPENDENCY DIRECTOR Active NEURONTIN 300 MG CAP 1 cap by mouth three times daily for restless leg 06/22 GABAPENTIN 37396861011 No Longer Active Harinder Hernandez DO Active BENZONATATE 100 MG CAPS 1 cap po TID PRN BENZONATATE 64399557997 No Longer Active Harinder Hernandez DO Active MONTELUKAST SODIUM 10 MG TABS 1 tab po in the evening MONTELUKAST SODIUM 12351610315 No Longer Active Harinder Hernandez DO Active MUPIROCIN 2 % OINT apply to affected area BID x 14 days MUPIROCIN 00563375050 No Longer Active Harinder Hernandez DO Active TYLENOL EXTRA STRENGTH 500 MG TABS as needed ACETAMINOPHEN 95631433792 No Longer Active Harinder Hernandez DO Active PREDNISONE 10 MG TABS 1 tab po daily PREDNISONE 24243429892 No Longer Active Harinder Hernandez DO Active PREDNISONE 20 MG TAB 2 tabs daily for 4 days, 1 tab daily for 4 days, 1/2 tab daily for 4 days PREDNISONE 18650971037 No Longer Active Harinder Hernandez DO Active AZITHROMYCIN 250 MG TABS 2 po qd x 1 day, then 1 po qd x 4 days AZITHROMYCIN 50853629320 No Longer Active Harinder W David DO Active PREDNISONE 20 MG TAB 3 tabs today, then 1 tab twice daily for 3 day, then one daily for three days PREDNISONE 38919575601 No Longer Active Harinder Hernandez DO Active NIFEDIAC CC 30 MG [id number] 1 tablet daily for raynaud's syndrome NIFEDIPINE 84439343156 No Longer Active Tawnya Pardo MA Active AMBIEN 10 MG TAB 1/2 tab by mouth at bedtime as needed for sleep ZOLPIDEM TARTRATE 45956750992 Active Harinder Hernandez DO Active CLONAZEPAM 1 MG TABS 1 tablet at bedtime for insomnia and restless legs 09/14 CLONAZEPAM 05097616020 Active Harinder Hernandez DO Active CLONAZEPAM 0.5 MG TABS 1 tab po daily CLONAZEPAM 23198538132 No Longer Active Harinder Hernandez DO Active PREDNISONE 10 MG TAB 1 tablet daily for COPD PREDNISONE 52225425602 Active Tawnya Pardo MA Active PROAIR HFA 108 (90 BASE) MCG/ACT AERS 2 puffs four times a day as needed 2012 ALBUTEROL SULFATE 70675609134 Active Tawnya Pardo MA Active FLOVENT HFA 110 MCG/ACT AERO 2 puffs inhaled b.i.d. FLUTICASONE PROPIONATE HFA 42236442260 Active Tawnya Pardo MA Active EPIPEN 0.3 MG/0.3ML URIEL DIRECTED EPINEPHRINE Active Demetrius JOHNSON Active ACIPHEX 20 MG TBEC 1 tab po daily RABEPRAZOLE SODIUM 44345818665 Active Tawnya Pardo MA Active TOPIRAMATE 25 MG TABS 1 tab po BID TOPIRAMATE 72602091696 Active Tawnya Pardo MA Active CLONAZEPAM 0.5 MG TABS 1 tab po daily CLONAZEPAM 0.5 MG TABS 450515 CLONAZEPAM Inactive PREDNISONE 20 MG TAB 3 tabs today, then 1 tab twice daily for 3 day, then one daily for three days PREDNISONE 20 MG TAB 228798 PREDNISONE Inactive PREDNISONE 20 MG TAB 2 tabs daily for 4 days, 1 tab daily for 4 days, 1/2 tab daily for 4 days PREDNISONE 20 MG TAB 040988 PREDNISONE Inactive PREDNISONE 10 MG TABS 1 tab po daily PREDNISONE 10 MG TABS 054344 PREDNISONE Inactive TYLENOL EXTRA STRENGTH 500 MG TABS as needed TYLENOL EXTRA STRENGTH 500 MG TABS 859473 ACETAMINOPHEN Inactive MUPIROCIN 2 % OINT apply to affected area BID x 14 days MUPIROCIN 2 % OINT 454959 MUPIROCIN Inactive MONTELUKAST SODIUM 10 MG TABS 1 tab po in the evening MONTELUKAST SODIUM 10 MG TABS 20010818 MONTELUKAST SODIUM Inactive BENZONATATE 100 MG CAPS 1 cap po TID PRN BENZONATATE 100 MG CAPS 271517 BENZONATATE Inactive NEURONTIN 300 MG CAP 1 cap by mouth three times daily for restless leg 06/22 NEURONTIN 300 MG CAP 359669 GABAPENTIN Inactive LEVAQUIN 500 MG TAB 1 tablet by mouth daily LEVAQUIN 500 MG TAB 932751 LEVOFLOXACIN Inactive PREDNISONE 20 MG TAB 1 TID x 2 days, then 1 BID x 3 days, then 1 Daily x 3 days, then stop PREDNISONE 20 MG TAB 566965 PREDNISONE Inactive POTASSIUM CHLORIDE ER 10 MEQ CR-TABS take 1 tab po daily POTASSIUM CHLORIDE ER 10 MEQ CR-TABS POTASSIUM CHLORIDE Inactive PREDNISONE 20 MG TAB 1 tab twice daily for 3 day, then one daily for three days PREDNISONE 20 MG TAB 382908 PREDNISONE Inactive TESSALON PERLES 100 MG CAP 1 to 2 tablets by mouth 3 times daily as needed for cough TESSALON PERLES 100 MG CAP 040902 BENZONATATE Inactive POTASSIUM CHLORIDE CR 10 MEQ [...] nightly for cholesterol LOVASTATIN 40 MG TABS 915300 LOVASTATIN Inactive CEFDINIR 300 MG ORAL CAPS take 1 cap po bid x 10 days CEFDINIR 300 MG ORAL CAPS 737014 CEFDINIR Inactive ACEBUTOLOL HCL 200 MG CAPS 1 cap in the morning and 2 caps in the evening ACEBUTOLOL HCL 200 MG CAPS 044645 ACEBUTOLOL HCL Inactive VENTOLIN HFA 108 (90 BASE) MCG/ACT AERS 2 -4 puffs four times a day PRN 2013 VENTOLIN HFA 108 (90 BASE) MCG/ACT AERS ALBUTEROL SULFATE Inactive AZITHROMYCIN 250 MG TABS 2 po qd x 1 day, then 1 po qd x 4 days AZITHROMYCIN 250 MG TABS 9079347 AZITHROMYCIN Inactive AZITHROMYCIN 250 MG TABS 2 po qd x 1 day, then 1 po qd x 4 days AZITHROMYCIN 250 MG TABS 3138408 AZITHROMYCIN Inactive PREDNISONE 20 MG TAB 2 po qd x 5 days PREDNISONE 20 MG TAB 194085 PREDNISONE Inactive Vital Signs Date Name Value [...] Panel - Chemistry sodium, serum 138 mmol/L 954-630 6389/09/24 potassium, serum 3.5 mmol/L 3.5-5.2 chloride, serum [...] 142-424 Encounters Code Encounter Date Provider Facility CPT-28532 Level 3 Est. Patient 12:14:34 CDT Harinder Hernandez [facility] CPT-63270 Level 3 Est. Patient 13:47:15 CDT Harinder Hernandez [facility] CPT-84931 Level 3 Est. Patient 14:08:24 CDT Harinder Cr [facility] CPT-66141 Level 3 Est. Patient 10:07:15 CDT Harinder Hernandez [facility] CPT-45038 Level 3 Est. Patient 10:06:59 CDT Harinder Cr [facility] CPT-68534 Level 3 Est. Patient 15:53:29 CDT Jae Morgan MD [facility] CPT-52981 Level 3 Est. Patient 17:19:04 CDT Harinder Cr David [facility] CPT-03851 Level 3 Est. Patient 11:13:01 CDT Harinder Hernandez [facility] CPT-81943 Level 3 Est. Patient 09:03:58 CDT Harinder Hernandez [facility] CPT-47867 Level 3 Est. Patient 14:46:45 PANTOGRAPHER Harinder Hernandez [facility] CPT-32478 Level 3 Est. Patient 09:35:49 PANTOGRAPHER Harinder Cr David [facility] CPT-57576 Level 3 Est. Patient 09:29:37 PANTOGRAPHER Harinder Cr David [facility] CPT-36433 Level 3 Est. Patient 15:51:07 CDT Harinder Hernandez [facility] CPT-88260 Level 3 Est. Patient 18:13:13 CDT Harinder rC [facility] CPT-64696 Level 3 Est. Patient 10:44:19 CDT Harinder Hernandez [facility] CPT-46208 Level 4 Est. Patient 10:07:19 PANTOGRAPHER Harinder Cr [facility] CPT-51300 Level 3 Est. Patient 15:59:32 PANTOGRAPHER Harinder Cr [facility] Procedures Code Procedure Name Date Entry Date Standard Description CPT-75279 Immunization Each Additional Inj 17:38:04 CDT CPT-21030 Immunization Single Admin 17:38:04 CDT CPT-58506 Prevnar 13 17:38:04 CDT CPT-48768 Fluzone Quadrivalent preservative free (>=3yrs.) 17:38: 04 CDT CPT-97406 No Charge Offi Visit 11:14:03 CDT CPT-38587 Chest 2V Frontal and Lat 14:00:18 CDT CPT-OV Office Visit 16:10:28 CDT CPT-JTINJ Asp/Joint Injection 09:03:57 CDT CPT-Cryo Cryotherapy 09:35:49 PANTOGRAPHER CPT-JTINJ Asp/Joint Injection 09:34:45 PANTOGRAPHER CPT-J2930 Solu Medrol 125 mg (Methyl Prednisolone Sodium Succinate) 20:37:27 CDT CPT-21166 Abx/Therapy Injection 20:37:27 CDT CPT-70495 Port a cath flush 08:15:51 CDT CPT-81946 Port a cath flush 09:54:16 CDT CPT-30822 Port a cath flush 09:38:02 CDT CPT-01930 Port a cath flush 11:00:27 PANTOGRAPHER
--- OUTSIDE RECORDS SUMMARY | 2017-12-29 03:40 | XMS REPORT | Clinical Summary ---
Author Author Admin, QIE Organization [facility] [place] Address Unknown Phone Unavailable Allergies, Adverse Reactions, [...] Inactive Harinder Hernandez DO Pneumonia ICD-486 Inactive Harinedr Hernandez DO Bacteremia ICD-790.7 Inactive Harinder Cr David DO 10/02 Clostridium difficile colitis ICD-008.45 Inactive Harinder Heranndez DO Abdominal pain, right lower quadrant ICD-789.03 Inactive Harinder Hernandez DO Needs vaccination for influenza ICD-V04.81 Inactive Harinder Hernandez DO Need for prophylactic vaccination against streptococcus pneumoniae ( Pneumococcus) ICD-V03.82 Inactive Harinder Shaye Hernandez Greater trochanteric bursitis, left ICD-726.5 Inactive Harinder Hernandez DO Breast mass, right ICD-611.72 Inactive Harinder Shaye David PINO Medication List Medication Instructions Start Date Stop Date Generic Name NDC Status Provider Patient Instruction POTASSIUM CHLORIDE CR 10 MEQ CPCR 1 capsule BID POTASSIUM CHLORIDE 43720996302 Active Kortney Mccain Active FLUOXETINE HCL 10 MG ORAL CAPS 1 po qd for depression/anxiety FLUOXETINE HCL 16979217328 Active Harinder Hernandez DO Active VOLTAREN 1 % GEL apply q 6-8 hour to left arm as needed for pain DICLOFENAC SODIUM 84424099492 Active Harinder Hernandez DO Active LASIX 20 MG TAB 1 tablet by mouth every morning FUROSEMIDE 31490747692 Prince Mccain Active POTASSIUM CHLORIDE 20 MEQ ORAL PACK 1 tab po BID POTASSIUM CHLORIDE 91384436630 Prince Mccain Active ALBUTEROL SULFATE 0.083 % NEBU SOLN 1 vial neb q 4hrs for severe asthma. 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 FLUTICASONE PROPIONATE HFA 06831804663 Active Harinder Hernandez DO Active EPIPEN 2-BRUNA 0.3 MG/0.3ML INJ SOAJ 1 INJ NEEDED EPINEPHRINE 20024678414 Active Harinder Hernandez DO Active PREDNISONE 20 MG TAB 1 tab twice daily for 3 day, then one daily for three days PREDNISONE 55041255168 No Longer Active Harinder Hernandez DO Active PREDNISONE 20 MG TAB 1 tablet twice daily for 2 days, then 1 tablet once daily for 2 days PREDNISONE 10395165116 No Longer Active Harinder Hernandez DO Active ASMANEX 120 METERED DOSES 220 MCG/INH INH AEPB 2 puffs orally twice daily MOMETASONE FUROATE 59558433719 Active Jeri Sosa RPT,RMA Active TOPIRAMATE 25 MG TABS 1 tab po BID TOPIRAMATE 44992804250 No Longer Active Nettie Newberry APRN Active AMLODIPINE BESYLATE 5 MG ORAL TABS Take 1 tab po daily AMLODIPINE BESYLATE 76890443781 No Longer Active Nettie Newberry APRN Active MECLIZINE HCL 25 MG TAB 1 tablet three times daily for 3 days, then 1/2 tab three times daily for 3 days. MECLIZINE HCL 79035423319 No Longer Active Nettie Newberry APRN Active AMITRIPTYLINE HCL 25 MG ORAL TABS 1 q hs prn AMITRIPTYLINE HCL 32398288538 No Longer Active Nettie Newberry APRN Active DILAUDID 2 MG ORAL TABS Take 1/2 tab po every 4 hours as needed for pain 2014 HYDROMORPHONE HCL 71792162170 No Longer Active Nettie Newberry APRN Active CLOPIDOGREL BISULFATE 75 MG ORAL TABS 1 tab by mouth once daily CLOPIDOGREL BISULFATE 57359171940 Active Harinder Hernandez DO Active ATORVASTATIN CALCIUM 10 MG ORAL TABS 1 at bedtime ATORVASTATIN CALCIUM 98875957797 Active Tawnya Pardo MA Active LOVASTATIN 40 MG ORAL TABS Take 1 tab po every hs LOVASTATIN 28677898401 No Longer Active Harinder Hernandez DO Active PREDNISONE 20 MG TAB 2 tabs daily for 4 days, 1 tab daily for 4 days, 1/2 tab daily for 4 days PREDNISONE 91973539345 No Longer Active Harinder Hernandez DO Active LEVAQUIN 500 MG ORAL TABS Take 1 tab po daily x 8 days LEVOFLOXACIN 97942140734 No Longer Active Harinder Hernandez DO Active VENTOLIN HFA 108 (90 BASE) MCG/ACT AERS 2 -4 puffs four times a day PRN 2013 ALBUTEROL SULFATE 60822353938 No Longer Active Jeri Sosa RPT,RMA Active ACEBUTOLOL HCL 200 MG CAPS 1 cap in the morning and 2 caps in the evening ACEBUTOLOL HCL 38308763937 No Longer Active Harinder Hernandez DO Active CEFDINIR 300 MG ORAL CAPS take 1 cap po bid x 10 days CEFDINIR 11867439456 No Longer Active Harinder Hernandez DO Active LOVASTATIN 40 MG TABS 1 pill by mouth nightly for cholesterol LOVASTATIN 22619081150 No Longer Active Nettie Newberry APRN Active NITROSTAT 0.4 MG SUBL 1 tab under tongueas needed for chest pain ( may take 3 total, 5 min apart, then call 911) NITROGLYCERIN 23195579908 No Longer Active Nettie Newberry APRN Active POTASSIUM CHLORIDE CR 10 MEQ CPCR 1 capsule by mouth daily 02/14 POTASSIUM CHLORIDE 09848162280 No Longer Active Nettie Newberry APRN Active TESSALON PERLES 100 MG CAP 1 to 2 tablets by mouth 3 times daily as needed for cough BENZONATATE 40989568341 No Longer Active Nettie Newberry MAHENDRA Active THEOPHYLLINE ER 200 MG ORAL [id number] Take 1 tab every 12 hours THEOPHYLLINE 03215670928 Active Kortneyalice Mccain Active PREDNISONE 20 MG TAB 2 po qd x 5 days PREDNISONE 31900529843 No Longer Active Jae Morgan MD Active AZITHROMYCIN 250 MG TABS 2 po qd x 1 day, then 1 po qd x 4 days AZITHROMYCIN 23581754438 No Longer Active Jae Morgan MD Active PREDNISONE 20 MG TAB 1 tab twice daily for 3 day, then one daily for three days PREDNISONE 50011099035 No Longer Active Jae Morgan MD Active SINGULAIR 10 MG TABS 1 pill by mouth every evening for breathing. MONTELUKAST SODIUM 33759054577 Active Tawnya Pardo MA Active TYLENOL 325 MG TAB 3 by mouth q4h as needed ACETAMINOPHEN 42097976944 Active Harinder Hernandez DO Active POTASSIUM CHLORIDE ER 10 MEQ CR-TABS take 1 tab po daily POTASSIUM CHLORIDE 79906879099 No Longer Active Harinder Hernandez DO Active PREDNISONE 20 MG TAB 1 TID x 2 days, then 1 BID x 3 days, then 1 Daily x 3 days, then stop PREDNISONE 47271702374 No Longer Active Jillkvng Frashai MCCRAY Active LEVAQUIN 500 MG TAB 1 tablet by mouth daily LEVOFLOXACIN 03551847902 No Longer Active Jillina Frazell MAHENDRA Active NEURONTIN 300 MG CAP 1 cap by mouth three times daily for restless leg 06/22 GABAPENTIN 33963005244 No Longer Active Harinder Hernandez DO Active BENZONATATE 100 MG CAPS 1 cap po TID PRN BENZONATATE 63479224743 No Longer Active Harinder Hernandez DO Active MONTELUKAST SODIUM 10 MG TABS 1 tab po in the evening MONTELUKAST SODIUM 70461111471 No Longer Active Harinder Hernandez DO Active MUPIROCIN 2 % OINT apply to affected area BID x 14 days MUPIROCIN 79254849401 No Longer Active Harinder Hernandez DO Active TYLENOL EXTRA STRENGTH 500 MG TABS as needed ACETAMINOPHEN 36619948077 No Longer Active Harinder Hernandez DO Active PREDNISONE 10 MG TABS 1 tab po daily PREDNISONE 01942990635 No Longer Active Harinder Hernandez DO Active PREDNISONE 20 MG TAB 2 tabs daily for 4 days, 1 tab daily for 4 days, 1/2 tab daily for 4 days PREDNISONE 35889389080 No Longer Active Hrainder Hernandez DO Active AZITHROMYCIN 250 MG TABS 2 po qd x 1 day, then 1 po qd x 4 days AZITHROMYCIN 27578973873 No Longer Active Harinder Hernandez DO Active PREDNISONE 20 MG TAB 3 tabs today, then 1 tab twice daily for 3 day, then one daily for three days PREDNISONE 97787141201 No Longer Active Harinder Hernandez DO Active NIFEDIAC CC 30 MG [id number] 1 tablet daily for raynaud's syndrome NIFEDIPINE 50840287237 No Longer Active Tawnya Pardo MA Active AMBIEN 10 MG TAB 1/2 tab by mouth at bedtime as needed for sleep ZOLPIDEM TARTRATE 85105481724 Active Ciera Pimentel Active CLONAZEPAM 1 MG TABS 1 tablet at bedtime for insomnia and restless legs 09/14 CLONAZEPAM 80064672459 Active Harinder Hernandez DO Active CLONAZEPAM 0.5 MG TABS 1 tab po daily CLONAZEPAM 96963946861 No Longer Active Harinder Hernandez DO Active PREDNISONE 10 MG TAB 1 tablet daily for COPD PREDNISONE 20675574193 Active Ciera Pimentel Active PROAIR HFA 108 (90 BASE) MCG/ACT AERS 2 puffs four times a day as needed 2012 ALBUTEROL SULFATE 71416331074 Active Harinder Hernandez DO Active FLOVENT HFA 110 MCG/ACT AERO 2 puffs inhaled b.i.d. FLUTICASONE PROPIONATE HFA 93596472142 Active Kortney Mccain Active ACIPHEX 20 MG TBEC 1 tab po daily RABEPRAZOLE SODIUM 23072356285 Active Kaylah Newberry Active CLONAZEPAM 0.5 MG TABS 1 tab po daily CLONAZEPAM 0.5 MG TABS 715161 CLONAZEPAM Inactive PREDNISONE 20 MG TAB 3 tabs today, then 1 tab twice daily for 3 day, then one daily for three days PREDNISONE 20 MG TAB 977196 PREDNISONE Inactive PREDNISONE 20 MG TAB 2 tabs daily for 4 days, 1 tab daily for 4 days, 1/2 tab daily for 4 days PREDNISONE 20 MG TAB 112049 PREDNISONE Inactive PREDNISONE 10 MG TABS 1 tab po daily PREDNISONE 10 MG TABS 184906 PREDNISONE Inactive TYLENOL EXTRA STRENGTH 500 MG TABS as needed TYLENOL EXTRA STRENGTH 500 MG TABS 410433 ACETAMINOPHEN Inactive MUPIROCIN 2 % OINT apply to affected area BID x 14 days MUPIROCIN 2 % OINT 311071 MUPIROCIN Inactive MONTELUKAST SODIUM 10 MG TABS 1 tab po in the evening MONTELUKAST SODIUM 10 MG TABS 383851 MONTELUKAST SODIUM Inactive BENZONATATE 100 MG CAPS 1 cap po TID PRN BENZONATATE 100 MG CAPS 342199 BENZONATATE Inactive NEURONTIN 300 MG CAP 1 cap by mouth three times daily for restless leg 06/22 NEURONTIN 300 MG CAP 973331 GABAPENTIN Inactive LEVAQUIN 500 MG TAB 1 tablet by mouth daily LEVAQUIN 500 MG TAB 338788 LEVOFLOXACIN Inactive PREDNISONE 20 MG TAB 1 TID x 2 days, then 1 BID x 3 days, then 1 Daily x 3 days, then stop PREDNISONE 20 MG TAB 670131 PREDNISONE Inactive POTASSIUM CHLORIDE ER 10 MEQ CR-TABS take 1 tab po daily POTASSIUM CHLORIDE ER 10 MEQ CR-TABS POTASSIUM CHLORIDE Inactive PREDNISONE 20 MG TAB 1 tab twice daily for 3 day, then one daily for three days PREDNISONE 20 MG TAB 274168 PREDNISONE Inactive TESSALON PERLES 100 MG CAP 1 to 2 tablets by mouth 3 times daily as needed for cough TESSALON PERLES 100 MG CAP 089921 BENZONATATE Inactive POTASSIUM CHLORIDE CR 10 MEQ CPCR 1 capsule by mouth daily 02/14 POTASSIUM CHLORIDE CR 10 MEQ CPCR POTASSIUM CHLORIDE Inactive NITROSTAT 0.4 MG SUBL 1 tab under tongueas needed for chest pain ( may take 3 total, 5 min apart, then call 911) NITROSTAT 0.4 MG SUBL 026513 NITROGLYCERIN Inactive LOVASTATIN 40 MG TABS 1 pill by mouth nightly for cholesterol LOVASTATIN 40 MG TABS LOVASTATIN Inactive CEFDINIR 300 MG ORAL CAPS take 1 cap po bid x 10 days CEFDINIR 300 MG ORAL CAPS 343141 CEFDINIR Inactive ACEBUTOLOL HCL 200 MG CAPS 1 cap in the morning and 2 caps in the evening ACEBUTOLOL HCL 200 MG CAPS 397676 ACEBUTOLOL HCL Inactive VENTOLIN HFA 108 (90 BASE) MCG/ACT AERS 2 -4 puffs four times a day PRN 2013 VENTOLIN HFA 108 (90 BASE) MCG/ACT AERS ALBUTEROL SULFATE Inactive LEVAQUIN 500 MG ORAL TABS Take 1 tab po daily x 8 days LEVAQUIN 500 MG ORAL TABS 499230 LEVOFLOXACIN Inactive PREDNISONE 20 MG TAB 2 tabs daily for 4 days, 1 tab daily for 4 days, 1/2 tab daily for 4 days PREDNISONE 20 MG TAB 815890 PREDNISONE Inactive LOVASTATIN 40 MG ORAL TABS Take 1 tab po every hs LOVASTATIN 40 MG ORAL TABS LOVASTATIN Inactive DILAUDID 2 MG ORAL TABS Take 1/2 tab po every 4 hours as needed for pain 2014 DILAUDID 2 MG ORAL TABS 123445 HYDROMORPHONE HCL Inactive AMITRIPTYLINE HCL 25 MG ORAL TABS 1 q hs prn AMITRIPTYLINE HCL 25 MG ORAL TABS 686519 AMITRIPTYLINE HCL Inactive MECLIZINE HCL 25 MG TAB 1 tablet three times daily for 3 days, then 1/2 tab three times daily for 3 days. MECLIZINE HCL 25 MG TAB 727596 MECLIZINE HCL Inactive AMLODIPINE BESYLATE 5 MG ORAL TABS Take 1 tab po daily AMLODIPINE BESYLATE 5 MG ORAL TABS 625282 AMLODIPINE BESYLATE Inactive TOPIRAMATE 25 MG TABS 1 tab po BID TOPIRAMATE 25 MG TABS 088326 TOPIRAMATE Inactive PREDNISONE 20 MG TAB 1 tablet twice daily for 2 days, then 1 tablet once daily for 2 days PREDNISONE 20 MG TAB 602714 PREDNISONE Inactive PREDNISONE 20 MG TAB 1 tab twice daily for 3 day, then one daily for three days PREDNISONE 20 MG TAB 352763 PREDNISONE Inactive NIFEDIPINE ER 30 MG ORAL [id number] 1 daily NIFEDIPINE ER 30 MG ORAL [id number] NIFEDIPINE Inactive AMLODIPINE BESYLATE 5 MG TABS 1 tablet by mouth daily AMLODIPINE BESYLATE 5 MG TABS 281120 AMLODIPINE BESYLATE Inactive AZITHROMYCIN 250 MG TABS 2 po qd x 1 day, then 1 po qd x 4 days AZITHROMYCIN 250 MG TABS 1820828 AZITHROMYCIN Inactive AZITHROMYCIN 250 MG TABS 2 po qd x 1 day, then 1 po qd x 4 days AZITHROMYCIN 250 MG TABS 1257467 AZITHROMYCIN Inactive PREDNISONE 20 MG TAB 2 po qd x 5 days PREDNISONE 20 MG TAB 765473 PREDNISONE Inactive Vital Signs Date Name Value [...] Measured blood pressure, diastolic 69 mm[Hg] BP aadn blood pressure, systolic 135 mm[Hg] BP sys pulse rate E&M 70 /min Heart rate temperature E&M 96.8 [degF] Body temperature weight E&M 129 [lb_av] Weight Measured blood pressure, diastolic 70 mm[Hg] BP adan blood pressure, systolic 113 mm[Hg] BP sys pulse rate E&M 74 /min Heart rate temperature E&M 97.1 [degF] Body temperature weight E&M 131 [lb_av] Weight Measured blood pressure, diastolic 76 mm[Hg] BP adan blood pressure, systolic 117 mm[Hg] BP sys pulse rate E&M 76 /min Heart rate temperature E&M 97.2 [degF] Body temperature weight E&M 128 [lb_av] Weight Measured Diagnostic Results Date Name Value Unit Range Description Lab Report: Basic Metabolic Panel - Chemistry sodium, serum 137 mmol/L 996-794 4343/01/03 potassium, serum 3.4 mmol/L 3.5-5.2 chloride, serum 102 mmol/L 98-107 carbon dioxide, venous blood 29.2 mmol/L 21.0-32.0 blood glucose 87 mg/dL 65-110 calcium, serum 8.5 mg/dL 8.5-10.1 urea nitrogen, blood 8 mg/dL 7-18 creatinine, serum 0.82 mg/dL 0.55-1.30 sodium, serum 140 mmol/L 856-239 6112/07/13 potassium, serum 3.2 mmol/L 3.5-5.2 chloride, serum [...] 0.40 mg/dL 0.00-1.00 sodium, serum 142 mmol/L 140-474 6786/08/08 LDL cholesterol, serum 96 mg/dL 0-130 HDL [...] 10.0-20.0 Encounters Code Encounter Date Provider Facility CPT-77765 Level 4 Est. Patient 09:15:13 CDT Harinder Cr [facility] CPT-93603 Level 3 Est. Patient 11:51:58 CDT Harinder Hernandez [facility] CPT-98994 Level 3 Est. Patient 11:30:05 CDT Harinder Hernandez [facility] CPT-40160 Level 4 Est. Patient 10:19:23 CDT Harinder Hernandez [facility] CPT-00773 Level 3 Est. Patient 09:58:58 CDT Harinder Cr [facility] CPT-54560 Level 3 Est. Patient 12:37:21 CDT Harinder Hernandez [facility] CPT-97178 Level 3 Est. Patient 18:37:17 CDT Harinder Hernandez [facility] CPT-14091 Level 4 Est. Patient 11:15:54 CDT Nettie Newberry [facility] [facility] CPT-97350 Level 3 Est. Patient 16:42:24 CDT Harinder Hernandez [facility] CPT-97557 Level 3 Est. Patient 15:03:36 CDT Harinder Hernandez [facility] CPT-16009 Level 3 Est. Patient 15:03:20 CDT Harinder Hernandez [facility] CPT-47222 Level 3 Est. Patient 12:14:34 CDT Harinder Hernandez [facility] CPT-57119 Level 3 Est. Patient 13:47:15 CDT Harinder Hernandez [facility] CPT-31207 Level 3 Est. Patient 14:08:24 CDT Harinder Hernandez [facility] CPT-53701 Level 3 Est. Patient 10:07:15 CDT Harinder Hernandez [facility] CPT-00740 Level 3 Est. Patient 10:06:59 CDT Harinder Hernandez [facility] CPT-53842 Level 3 Est. Patient 15:53:29 CDT Jae Morgan MD [facility] CPT-79489 Level 3 Est. Patient 17:19:04 CDT Harinder Hernandez [facility] CPT-70955 Level 3 Est. Patient 11:13:01 CDT Harinder Hernandez [facility] CPT-91287 Level 3 Est. Patient 09:03:58 CDT Harinder Hernandez [facility] CPT-39645 Level 3 Est. Patient 14:46:45 BATTER DEPOSITOR Harinder Hernandez [facility] CPT-42071 Level 3 Est. Patient 09:35:49 BATTER DEPOSITOR Harinder Hernandez [facility] CPT-02868 Level 3 Est. Patient 09:29:37 BATTER DEPOSITOR Harinder Hernandez [facility] CPT-37282 Level 3 Est. Patient 15:51:07 CDT Harinder Hernandez [facility] CPT-47288 Level 3 Est. Patient 18:13:13 CDT Harinder Hernandez [facility] CPT-01841 Level 3 Est. Patient 10:44:19 CDT Harinder Hernandez [facility] CPT-75460 Level 4 Est. Patient 10:07:19 BATTER DEPOSITOR Harinder Hernandez [facility] CPT-22469 Level 3 Est. Patient 15:59:32 BATTER DEPOSITOR Harinder Cr [facility] Procedures Code Procedure Name Date Entry Date Standard Description CPT-30456 Port a cath flush 13:46:05 CDT CPT-23635 Hip, complete, 2-3 views - XRAY USE ONLY 10:28:40 CDT CPT-04501 BMP - LAB USE ONLY 16:45:09 BATTER DEPOSITOR CPT-64458 Port a cath flush 12:00:13 BATTER DEPOSITOR CPT-TCMM Transitional Care Mgmt-Moderate 11:20:16 BATTER DEPOSITOR CPT-29062 First Vx - Ix admin for Medicare patients 17:35:15 CDT CPT-30977 Fluzone Preservative Free Intramuscular Suspension 17:35 :15 CDT CPT-21043 Microalbumin - LAB USE ONLY 11:52:05 CDT CPT-TCMM Transitional Care Mgmt-Moderate 11:33:57 CDT CPT-59239 No Charge Offi Visit 14:11:29 CDT CPT-78948 Magnesium - LAB USE ONLY 10:45:44 CDT CPT-00710 Lipid - LAB USE ONLY 10:45:44 CDT CPT-51463 CBC - LAB USE ONLY 10:45:44 CDT CPT-53153 Venipuncture Draw Fee 10:45:43 CDT CPT-08304 Venipuncture Draw Fee 18:21:27 CDT CPT-JTINJ Asp/Joint Injection 18:38:04 CDT CPT-87939 Immunization Each Additional Inj 17:38:04 CDT CPT-58163 Immunization Single Admin 17:38:04 CDT CPT-35523 Prevnar 13 17:38:04 CDT CPT-87847 Fluzone Quadrivalent preservative free (>=3yrs.) 17:38: 04 CDT CPT-63727 No Charge Offi Visit 11:14:03 CDT CPT-63777 Chest 2V Frontal and Lat 14:00:18 CDT CPT-OV Office Visit 16:10:28 CDT CPT-JTINJ Asp/Joint Injection 09:03:57 CDT CPT-Cryo Cryotherapy 09:35:49 BATTER DEPOSITOR CPT-JTINJ Asp/Joint Injection 09:34:45 BATTER DEPOSITOR CPT-J2930 Solu Medrol 125 mg (Methyl Prednisolone Sodium Succinate) 20:37:27 CDT CPT-09574 Abx/Therapy Injection 20:37:27 CDT CPT-46368 Port a cath flush 08:15:51 CDT CPT-80739 Port a cath flush 09:54:16 CDT CPT-41360 Port a cath flush 09:38:02 CDT CPT-62371 Port a cath flush 11:00:27 BATTER DEPOSITOR
--- OUTSIDE RECORDS SUMMARY | 2017-12-29 03:42 | XMS REPORT | Clinical Summary ---
Author Author Admin, QIE Organization [facility] Address Unknown Phone Unavailable Allergies, Adverse Reactions, [...] (RLS) Breast mass, right 611.72 Resolved Harinder Hernadnez DO Lump or mass in breast Health [...] DO Back pain, lumbar ICD-724.2 Inactive Harinder Hernanedz DO Insomnia ICD-780.52 Inactive Harinder Hernandez DO [...] TAB 1 tablet by mouth daily SPIRONOLACTONE 34336531722 Prince Pimentel Active POTASSIUM CHLORIDE CR 10 MEQ CPCR 1 capsule BID POTASSIUM CHLORIDE 58827572381 Prince Mccain Active FLUOXETINE HCL 10 MG ORAL CAPS 1 po qd for depression/anxiety FLUOXETINE HCL 06690373696 Active Harinder Hernandez DO Active VOLTAREN 1 % GEL apply q 6-8 hour to left arm as needed for pain DICLOFENAC SODIUM 37708104257 Prince Hernandez DO Active LASIX 20 MG TAB 1 tablet by mouth every morning FUROSEMIDE 38502551860 Prince Mccain Active POTASSIUM CHLORIDE 20 MEQ ORAL PACK 1 tab po BID POTASSIUM CHLORIDE 10987072538 Prince Mccain Active ALBUTEROL SULFATE 0.083 % NEBU SOLN 1 vial neb q 4hrs for severe asthma. 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 FLUTICASONE PROPIONATE HFA 71129236924 Active Harinder Hernandez DO Active EPIPEN 2-BRUNA 0.3 MG/0.3ML INJ SOAJ 1 INJ NEEDED EPINEPHRINE 27526455784 Active Harinder Hernandez DO Active PREDNISONE 20 MG TAB 1 tab twice daily for 3 day, then one daily for three days PREDNISONE 05578955194 No Longer Active Harinder Hernandez DO Active PREDNISONE 20 MG TAB 1 tablet twice daily for 2 days, then 1 tablet once daily for 2 days PREDNISONE 97557095076 No Longer Active Harinder Hernandez DO Active ASMANEX 120 METERED DOSES 220 MCG/INH INH AEPB 2 puffs orally twice daily MOMETASONE FUROATE 30902550567 Active Jeri Sosa LPN Active TOPIRAMATE 25 MG TABS 1 tab po BID TOPIRAMATE 05066538661 No Longer Active Nettie Newberry APRN Active AMLODIPINE BESYLATE 5 MG ORAL TABS Take 1 tab po daily AMLODIPINE BESYLATE 62128320745 No Longer Active Nettie Newberry APRN Active MECLIZINE HCL 25 MG TAB 1 tablet three times daily for 3 days, then 1/2 tab three times daily for 3 days. MECLIZINE HCL 55575335010 No Longer Active Nettie Newberry APRN Active AMITRIPTYLINE HCL 25 MG ORAL TABS 1 q hs prn AMITRIPTYLINE HCL 76912449711 No Longer Active Nettie Newberry APRN Active DILAUDID 2 MG ORAL TABS Take 1/2 tab po every 4 hours as needed for pain 2014 HYDROMORPHONE HCL 58100783226 No Longer Active Nettie Newberry APRN Active CLOPIDOGREL BISULFATE 75 MG ORAL TABS 1 tab by mouth once daily CLOPIDOGREL BISULFATE 79068263299 Active Harinder Hernandez DO Active ATORVASTATIN CALCIUM 10 MG ORAL TABS 1 at bedtime ATORVASTATIN CALCIUM 24820394958 Active Tawnya Pardo MA Active LOVASTATIN 40 MG ORAL TABS Take 1 tab po every hs LOVASTATIN 56308476966 No Longer Active Harinder Hernandez DO Active PREDNISONE 20 MG TAB 2 tabs daily for 4 days, 1 tab daily for 4 days, 1/2 tab daily for 4 days PREDNISONE 00235000686 No Longer Active Harinder Hernandez DO Active LEVAQUIN 500 MG ORAL TABS Take 1 tab po daily x 8 days LEVOFLOXACIN 86911589430 No Longer Active Harinder Hernandez DO Active VENTOLIN HFA 108 (90 BASE) MCG/ACT AERS 2 -4 puffs four times a day PRN 2013 ALBUTEROL SULFATE 09961290560 No Longer Active Jeri Sosa LPN Active ACEBUTOLOL HCL 200 MG CAPS 1 cap in the morning and 2 caps in the evening ACEBUTOLOL HCL 70159529629 No Longer Active Harinder Hernandez DO Active CEFDINIR 300 MG ORAL CAPS take 1 cap po bid x 10 days CEFDINIR 53916948882 No Longer Active Harinder Hernandez DO Active LOVASTATIN 40 MG TABS 1 pill by mouth nightly for cholesterol LOVASTATIN 88562484671 No Longer Active Nettie Newberry APRN Active NITROSTAT 0.4 MG SUBL 1 tab under tongueas needed for chest pain ( may take 3 total, 5 min apart, then call 911) NITROGLYCERIN 62752418680 No Longer Active Nettie Newberry MAHENDRA Active POTASSIUM CHLORIDE CR 10 MEQ CPCR 1 capsule by mouth daily 02/14 POTASSIUM CHLORIDE 89857993007 No Longer Active Nettie Newberry MAHENDRA Active TESSALON PERLES 100 MG CAP 1 to 2 tablets by mouth 3 times daily as needed for cough BENZONATATE 03640778736 No Longer Active Nettie Newberry MAHENDRA Active THEOPHYLLINE ER 200 MG ORAL SU31B-AIL Take 1 tab every 12 hours THEOPHYLLINE 36696933974 Active Kortney Mccain Active PREDNISONE 20 MG TAB 2 po qd x 5 days PREDNISONE 65291614084 No Longer Active Jae Moragn MD Active AZITHROMYCIN 250 MG TABS 2 po qd x 1 day, then 1 po qd x 4 days AZITHROMYCIN 75740457103 No Longer Active Jae Morgan MD Active PREDNISONE 20 MG TAB 1 tab twice daily for 3 day, then one daily for three days PREDNISONE 26931815789 No Longer Active Jae Morgan MD Active SINGULAIR 10 MG TABS 1 pill by mouth every evening for breathing. MONTELUKAST SODIUM 53373840148 Active Tawnya Pardo MA Active TYLENOL 325 MG TAB 3 by mouth q4h as needed ACETAMINOPHEN 98156974221 Active Harinder Hernandez DO Active POTASSIUM CHLORIDE ER 10 MEQ CR-TABS take 1 tab po daily POTASSIUM CHLORIDE 27770972193 No Longer Active Harinder Hernandez DO Active PREDNISONE 20 MG TAB 1 TID x 2 days, then 1 BID x 3 days, then 1 Daily x 3 days, then stop PREDNISONE 05779607480 No Longer Active John Montemayor APRN Active LEVAQUIN 500 MG TAB 1 tablet by mouth daily LEVOFLOXACIN 50881585731 No Longer Active Jillina Frazell LOG CUT OFF SAWYER Active NEURONTIN 300 MG CAP 1 cap by mouth three times daily for restless leg 06/22 GABAPENTIN 38189688427 No Longer Active Harinder Hernandez DO Active BENZONATATE 100 MG CAPS 1 cap po TID PRN BENZONATATE 37283248199 No Longer Active Harinder Hernandez DO Active MONTELUKAST SODIUM 10 MG TABS 1 tab po in the evening MONTELUKAST SODIUM 08072260984 No Longer Active Harinder Hernandez DO Active MUPIROCIN 2 % OINT apply to affected area BID x 14 days MUPIROCIN 81802367735 No Longer Active Harinder Hernandez DO Active TYLENOL EXTRA STRENGTH 500 MG TABS as needed ACETAMINOPHEN 60523556223 No Longer Active Harinder Hernandez DO Active PREDNISONE 10 MG TABS 1 tab po daily PREDNISONE 10761149374 No Longer Active Harinder Hernandez DO Active PREDNISONE 20 MG TAB 2 tabs daily for 4 days, 1 tab daily for 4 days, 1/2 tab daily for 4 days PREDNISONE 28784438713 No Longer Active Harinder Hernandez DO Active AZITHROMYCIN 250 MG TABS 2 po qd x 1 day, then 1 po qd x 4 days AZITHROMYCIN 19918714190 No Longer Active Harinder Hernandez DO Active PREDNISONE 20 MG TAB 3 tabs today, then 1 tab twice daily for 3 day, then one daily for three days PREDNISONE 81801246793 No Longer Active Harinder Hernandez DO Active NIFEDIAC CC 30 MG [id number] 1 tablet daily for raynaud's syndrome NIFEDIPINE 16616106381 No Longer Active Tawnya Pardo MA Active AMBIEN 10 MG TAB 1/2 tab by mouth at bedtime as needed for sleep ZOLPIDEM TARTRATE 82330076039 Active Ciera Pimentel Active CLONAZEPAM 1 MG TABS 1 tablet at bedtime for insomnia and restless legs 09/14 CLONAZEPAM 76957140286 Active Harinder Hernandez DO Active CLONAZEPAM 0.5 MG TABS 1 tab po daily CLONAZEPAM 40881629835 No Longer Active Harinder Hernandez DO Active PREDNISONE 10 MG TAB 1 tablet daily for COPD PREDNISONE 34543102326 Active Ciera Pimentel Active PROAIR HFA 108 (90 BASE) MCG/ACT AERS 2 puffs four times a day as needed 2012 ALBUTEROL SULFATE 56150842100 Active Harinder Hernandez DO Active FLOVENT HFA 110 MCG/ACT AERO 2 puffs inhaled b.i.d. FLUTICASONE PROPIONATE HFA 63436465733 Active Kortneyalice Mccain Active ACIPHEX 20 MG TBEC 1 tab po daily RABEPRAZOLE SODIUM 60664434738 Active Kaylah Newberry Active CLONAZEPAM 0.5 MG TABS 1 tab po daily CLONAZEPAM 0.5 MG TABS 930034 CLONAZEPAM Inactive PREDNISONE 20 MG TAB 3 tabs today, then 1 tab twice daily for 3 day, then one daily for three days PREDNISONE 20 MG TAB 132859 PREDNISONE Inactive PREDNISONE 20 MG TAB 2 tabs daily for 4 days, 1 tab daily for 4 days, 1/2 tab daily for 4 days PREDNISONE 20 MG TAB 564046 PREDNISONE Inactive PREDNISONE 10 MG TABS 1 tab po daily PREDNISONE 10 MG TABS 511659 PREDNISONE Inactive TYLENOL EXTRA STRENGTH 500 MG TABS as needed TYLENOL EXTRA STRENGTH 500 MG TABS 366286 ACETAMINOPHEN Inactive MUPIROCIN 2 % OINT apply to affected area BID x 14 days MUPIROCIN 2 % OINT 817882 MUPIROCIN Inactive MONTELUKAST SODIUM 10 MG TABS 1 tab po in the evening MONTELUKAST SODIUM 10 MG TABS 20010818 MONTELUKAST SODIUM Inactive BENZONATATE 100 MG CAPS 1 cap po TID PRN BENZONATATE 100 MG CAPS 095044 BENZONATATE Inactive NEURONTIN 300 MG CAP 1 cap by mouth three times daily for restless leg 06/22 NEURONTIN 300 MG CAP 396573 GABAPENTIN Inactive LEVAQUIN 500 MG TAB 1 tablet by mouth daily LEVAQUIN 500 MG TAB 309916 LEVOFLOXACIN Inactive PREDNISONE 20 MG TAB 1 TID x 2 days, then 1 BID x 3 days, then 1 Daily x 3 days, then stop PREDNISONE 20 MG TAB 203743 PREDNISONE Inactive POTASSIUM CHLORIDE ER 10 MEQ CR-TABS take 1 tab po daily POTASSIUM CHLORIDE ER 10 MEQ CR-TABS POTASSIUM CHLORIDE Inactive PREDNISONE 20 MG TAB 1 tab twice daily for 3 day, then one daily for three days PREDNISONE 20 MG TAB 139068 PREDNISONE Inactive TESSALON PERLES 100 MG CAP 1 to 2 tablets by mouth 3 times daily as needed for cough TESSALON PERLES 100 MG CAP 270058 BENZONATATE Inactive POTASSIUM CHLORIDE CR 10 MEQ CPCR 1 capsule by mouth daily 02/14 POTASSIUM CHLORIDE CR 10 MEQ CPCR POTASSIUM CHLORIDE Inactive NITROSTAT 0.4 MG SUBL 1 tab under tongueas needed for chest pain ( may take 3 total, 5 min apart, then call 911) NITROSTAT 0.4 MG SUBL 108149 NITROGLYCERIN Inactive LOVASTATIN 40 MG TABS 1 pill by mouth nightly for cholesterol LOVASTATIN 40 MG TABS 180454 LOVASTATIN Inactive CEFDINIR 300 MG ORAL CAPS take 1 cap po bid x 10 days CEFDINIR 300 MG ORAL CAPS 627642 CEFDINIR Inactive ACEBUTOLOL HCL 200 MG CAPS 1 cap in the morning and 2 caps in the evening ACEBUTOLOL HCL 200 MG CAPS 382129 ACEBUTOLOL HCL Inactive VENTOLIN HFA 108 (90 [...] for 4 days PREDNISONE 20 MG TAB 754996 PREDNISONE Inactive LOVASTATIN 40 MG ORAL TABS Take 1 tab po every hs LOVASTATIN 40 MG ORAL TABS 526395 LOVASTATIN Inactive DILAUDID 2 MG ORAL TABS Take 1/2 tab po every 4 hours as needed for pain 2014 DILAUDID 2 MG ORAL TABS 033303 HYDROMORPHONE HCL Inactive AMITRIPTYLINE HCL 25 MG ORAL TABS 1 q hs prn AMITRIPTYLINE HCL 25 MG ORAL TABS 123977 AMITRIPTYLINE HCL Inactive MECLIZINE HCL 25 MG TAB 1 tablet three times daily for 3 days, then 1/2 tab three times daily for 3 days. MECLIZINE HCL 25 MG TAB 899352 MECLIZINE HCL Inactive AMLODIPINE BESYLATE 5 MG ORAL TABS Take 1 tab po daily AMLODIPINE BESYLATE 5 MG ORAL TABS 217038 AMLODIPINE BESYLATE Inactive TOPIRAMATE 25 MG TABS 1 tab po BID TOPIRAMATE 25 MG TABS 889414 TOPIRAMATE Inactive PREDNISONE 20 MG TAB 1 tablet twice daily for 2 days, then 1 tablet once daily for 2 days PREDNISONE 20 MG TAB 764641 PREDNISONE Inactive PREDNISONE 20 MG TAB 1 tab twice daily for 3 day, then one daily for three days PREDNISONE 20 MG TAB 459079 PREDNISONE Inactive NIFEDIPINE ER 30 MG ORAL [id number] 1 daily NIFEDIPINE ER 30 MG ORAL [id number] NIFEDIPINE Inactive AMLODIPINE BESYLATE 5 MG TABS 1 tablet by mouth daily AMLODIPINE BESYLATE 5 MG TABS 246436 AMLODIPINE BESYLATE Inactive AZITHROMYCIN 250 MG TABS 2 po qd x 1 day, then 1 po qd x 4 days AZITHROMYCIN 250 MG TABS 9402719 AZITHROMYCIN Inactive AZITHROMYCIN 250 MG TABS 2 po qd x 1 day, then 1 po qd x 4 days AZITHROMYCIN 250 MG TABS 8138378 AZITHROMYCIN Inactive PREDNISONE 20 MG TAB 2 po qd x 5 days PREDNISONE 20 MG TAB 255730 PREDNISONE Inactive Vital Signs Date Name Value [...] Panel - Chemistry sodium, serum 137 mmol/L 992-805 0844/01/03 potassium, serum 3.4 mmol/L 3.5-5.2 chloride, serum 102 mmol/L 98-107 carbon dioxide, venous blood 29.2 mmol/L 21.0-32.0 blood glucose 87 mg/dL 65-110 calcium, serum 8.5 mg/dL 8.5-10.1 urea nitrogen, blood 8 mg/dL 7-18 creatinine, serum 0.82 mg/dL 0.55-1.30 sodium, serum 140 mmol/L 169-649 5599/07/13 potassium, serum 3.2 mmol/L 3.5-5.2 chloride, serum [...] ... - Chemistry sodium, serum 141 mmol/L 592-621 8510/08/07 carbon dioxide, venous blood 34.0 mmol/L 21.0-32.0 [...] Magnesium - Chemistry cholesterol, serum 180 mg/dL 008-593 7286/08/08 triglyceride, serum, fasting 92 mg/dL 30-200 HDL cholesterol, serum 66 mg/dL 32-96 LDL cholesterol, serum 96 mg/dL 0-130 sodium, serum 142 mmol/L 069-404 2169/08/08 carbon dioxide, venous blood 27.4 mmol/L 21.0-32.0 [...] 10.0-20.0 Encounters Code Encounter Date Provider Facility CPT-48237 Level 4 Est. Patient 14:45:25 CDT Harinder Hernandez [facility] CPT-56405 Level 4 Est. Patient 09:15:13 CDT Harinder Cr [facility] CPT-41541 Level 3 Est. Patient 11:51:58 CDT Harinder Cr [facility] CPT-93123 Level 3 Est. Patient 11:30:05 CDT Harinder Cr [facility] CPT-49980 Level 4 Est. Patient 10:19:23 CDT Harinder Cr [facility] CPT-35761 Level 3 Est. Patient 09:58:58 CDT Harinder Cr [facility] CPT-06507 Level 3 Est. Patient 12:37:21 CDT Harinder Cr [facility] CPT-94331 Level 3 Est. Patient 18:37:17 CDT Harinder Cr [facility] CPT-12367 Level 4 Est. Patient 11:15:54 CDT Nettie Rohith [facility] CPT-46616 Level 3 Est. Patient 16:42:24 CDT Harinder Cr [facility] CPT-75169 Level 3 Est. Patient 15:03:36 CDT Harinder Cr [facility] CPT-18442 Level 3 Est. Patient 15:03:20 CDT Harinder Cr [facility] CPT-71550 Level 3 Est. Patient 12:14:34 CDT Harinder Shaye [facility] CPT-55335 Level 3 Est. Patient 13:47:15 CDT Harinder Cr [facility] CPT-27297 Level 3 Est. Patient 14:08:24 CDT Harinder Cr [facility] CPT-95539 Level 3 Est. Patient 10:07:15 CDT Harinder Hernandez [facility] CPT-91304 Level 3 Est. Patient 10:06:59 CDT Harinder Hernandez [facility] CPT-86627 Level 3 Est. Patient 15:53:29 CDT Jae Morgan MD [facility] CPT-79768 Level 3 Est. Patient 17:19:04 CDT Harinder Hernandez [facility] CPT-32656 Level 3 Est. Patient 11:13:01 CDT Harinder Hernandez [facility] CPT-16286 Level 3 Est. Patient 09:03:58 CDT Harinder Hernandez [facility] CPT-24090 Level 3 Est. Patient 14:46:45 DERMATOPATHOLOGIST Harinder Hernandez [facility] CPT-30219 Level 3 Est. Patient 09:35:49 DERMATOPATHOLOGIST Harinder Hernandez [facility] CPT-79386 Level 3 Est. Patient 09:29:37 DERMATOPATHOLOGIST Harinder Hernandez [facility] CPT-77917 Level 3 Est. Patient 15:51:07 CDT Harinder Hernandez [facility] CPT-06928 Level 3 Est. Patient 18:13:13 CDT Harinder Hernandez [facility] CPT-58806 Level 3 Est. Patient 10:44:19 CDT Harinder Shaye Hernandez [facility] CPT-13201 Level 4 Est. Patient 10:07:19 DERMATOPATHOLOGIST Harinder Shaye Hernandez [facility] CPT-06616 Level 3 Est. Patient 15:59:32 DERMATOPATHOLOGIST Harinder Cr [facility] Procedures Code Procedure Name Date Entry Date Standard Description CPT-99067 Abd compl w upright - XRAY USE ONLY 14:48:09 CDT 02/18 CPT-99387 Port a cath flush 13:46:05 CDT CPT-69914 Hip, complete, 2-3 views - XRAY USE ONLY 10:28:40 CDT CPT-73103 BMP - LAB USE ONLY 16:45:09 DERMATOPATHOLOGIST CPT-50819 Port a cath flush 12:00:13 DERMATOPATHOLOGIST CPT-TCMM Transitional Care Mgmt-Moderate 11:20:16 DERMATOPATHOLOGIST CPT-04121 First Vx - Ix admin for Medicare patients 17:35:15 CDT CPT-21803 Fluzone Preservative Free Intramuscular Suspension 17:35 :15 CDT CPT-79421 Microalbumin - LAB USE ONLY 11:52:05 CDT CPT-TCMM Transitional Care Mgmt-Moderate 11:33:57 CDT CPT-90841 No Charge Offi Visit 14:11:29 CDT CPT-73870 Magnesium - LAB USE ONLY 10:45:44 CDT CPT-39319 Lipid - LAB USE ONLY 10:45:44 CDT CPT-95879 CBC - LAB USE ONLY 10:45:44 CDT CPT-23510 Venipuncture Draw Fee 10:45:43 CDT CPT-35917 Venipuncture Draw Fee 18:21:27 CDT CPT-JTINJ Asp/Joint Injection 18:38:04 CDT CPT-65715 Immunization Each Additional Inj 17:38:04 CDT CPT-22343 Immunization Single Admin 17:38:04 CDT CPT-41976 Prevnar 13 17:38:04 CDT CPT-48003 Fluzone Quadrivalent preservative free (>=3yrs.) 17:38: 04 CDT CPT-51518 No Charge Offi Visit 11:14:03 CDT CPT-96233 Chest 2V Frontal and Lat 14:00:18 CDT CPT-OV Office Visit 16:10:28 CDT CPT-JTINJ Asp/Joint Injection 09:03:57 CDT CPT-Cryo Cryotherapy 09:35:49 DERMATOPATHOLOGIST CPT-JTINJ Asp/Joint Injection 09:34:45 DERMATOPATHOLOGIST CPT-J2930 Solu Medrol 125 mg (Methyl Prednisolone Sodium Succinate) 20:37:27 CDT CPT-52107 Abx/Therapy Injection 20:37:27 CDT CPT-26585 Port a cath flush 08:15:51 CDT CPT-53471 Port a cath flush 09:54:16 CDT CPT-27682 Port a cath flush 09:38:02 CDT CPT-28989 Port a cath flush 11:00:27 DERMATOPATHOLOGIST
--- OUTSIDE RECORDS SUMMARY | 2017-12-29 03:44 | XMS REPORT | Clinical Summary ---
Author Author Admin, QIE Organization [facility] Or[facility] Address Unknown Phone Unavailable Allergies, Adverse Reactions, [...] TABLET 1 tablet by mouth daily SPIRONOLACTONE [id number] No Longer Active Jeri Nieto Active PREDNISONE 20 MG ORAL TABLET 2 tablets by mouth today, then 1 tablet by mouth days 2-3 PREDNISONE 28997442280 No Longer Active Jeri Nieto Active NITROSTAT 0.4 MG SUBLINGUAL TABLET SUBLINGUAL 1 tab SL q5min PRN chest pain NITROGLYCERIN 27225860322 Active Meenu Alejo LPN Active THEOPHYLLINE ER 300 MG ORAL TABLET EXTENDED RELEASE 12 HOUR 1 po BID THEOPHYLLINE 80353460020 Active Kortney Mccain Active POTASSIUM CHLORIDE ER 20 MEQ ORAL TABLET EXTENDED RELEASE 1 po q day POTASSIUM CHLORIDE 51023479064 Active Kortney Mccain Active POTASSIUM CHLORIDE 20 MEQ ORAL PACKET 1 tab po q day POTASSIUM CHLORIDE 00662337551 No Longer Active Kortney Mccain Active POTASSIUM CHLORIDE ER 10 MEQ ORAL CAPSULE EXTENDED RELEASE 1 capsule BID 2016 POTASSIUM CHLORIDE 41567949406 No Longer Active Kortney Mccain Active LASIX 20 MG ORAL TABLET 1 tablet by mouth every morning FUROSEMIDE 36806684618 No Longer Active Kortney Mccain Active FLUOXETINE HCL 10 MG ORAL CAPSULE 1 po qd for depression/anxiety FLUOXETINE HCL 20407470940 Active Meenu Alejo LPN Active VOLTAREN 1 % TRANSDERMAL GEL apply q 6-8 hour to left arm as needed for pain DICLOFENAC SODIUM 76065572984 Active Kortney Mccain Active ALBUTEROL SULFATE (2.5 MG/3ML) 0.083% INHALATION NEBULIZATION SOLUTION 1 vial neb q 4hrs for severe asthma. 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 NIFEDIPINE 97702335700 Active Kortney Mccain Active AMLODIPINE BESYLATE 5 MG ORAL TABLET 1 tablet by mouth daily 2016 AMLODIPINE BESYLATE 56245295128 No Longer Active Harinder Hernandez DO Active TOPAMAX 25 MG ORAL TABLET 1 tab po BID TOPIRAMATE 03940748051 Active Kortney Mccain Active FLUTICASONE PROPIONATE 50 MCG/ACT NASAL SUSPENSION 2 sprays per nostril daily PRN Allergies FLUTICASONE PROPIONATE 38449928886 Active Meenu Alejo LPN Active NIFEDIPINE ER 30 MG ORAL TABLET EXTENDED RELEASE 24 HOUR 1 daily NIFEDIPINE 99539093002 No Longer Active Harinder Hernandez DO Active FLOVENT HFA 110 MCG/ACT INHALATION AEROSOL 2 puffs inhaled b.i.d. FLUTICASONE PROPIONATE HFA 50720249039 Active Harinder Hernandez DO Active EPIPEN 2-BRUNA 0.3 MG/0.3ML INJECTION SOLUTION AUTO-INJECTOR 1 INJ NEEDED EPINEPHRINE 59190552967 Active Meenu Alejo LPN Active PREDNISONE 20 MG ORAL TABLET 1 tab twice daily for 3 day, then one daily for three days PREDNISONE 10114161624 No Longer Active Harinder Hernandez DO Active PREDNISONE 20 MG ORAL TABLET 1 tablet twice daily for 2 days, then 1 tablet once daily for 2 days PREDNISONE 10440183051 No Longer Active Harinder Hernandez DO Active ASMANEX 120 METERED DOSES 220 MCG/INH INHALATION AEROSOL POWDER BREATH ACTIVATED 2 puffs orally twice daily MOMETASONE FUROATE 85439261275 Active Jeri Sosa LPN Active TOPIRAMATE 25 MG ORAL TABLET 1 tab po BID TOPIRAMATE 01797527036 No Longer Active Nettie Newberry APRN Active AMLODIPINE BESYLATE 5 MG ORAL TABLET Take 1 tab po daily AMLODIPINE BESYLATE 40432387993 No Longer Active Nettie Newberry APRN Active MECLIZINE HCL 25 MG ORAL TABLET 1 tablet three times daily for 3 days, then 1/ 2 tab three times daily for 3 days. MECLIZINE HCL 46441911093 No Longer Active Nettie Newberry APRN Active AMITRIPTYLINE HCL 25 MG ORAL TABLET 1 q hs prn AMITRIPTYLINE HCL 26226164929 No Longer Active Nettie Newberry APRN Active DILAUDID 2 MG ORAL TABLET Take 1/2 tab po every 4 hours as needed for pain HYDROMORPHONE HCL 66029064927 No Longer Active Nettie Newberry APRN Active CLOPIDOGREL BISULFATE 75 MG ORAL TABLET 1 tab by mouth once daily CLOPIDOGREL BISULFATE 11791766852 Active Meenu Alejo LPN Active ATORVASTATIN CALCIUM 10 MG ORAL TABLET 1 at bedtime ATORVASTATIN CALCIUM 86354422220 Active Kortney Mccain Active LOVASTATIN 40 MG ORAL TABLET Take 1 tab po every hs LOVASTATIN 25463630334 No Longer Active Harinder Hernandez DO Active PREDNISONE 20 MG ORAL TABLET 2 tabs daily for 4 days, 1 tab daily for 4 days, 1/2 tab daily for 4 days PREDNISONE 29928342613 No Longer Active Harinder Hernandez DO Active LEVAQUIN 500 MG ORAL TABLET Take 1 tab po daily x 8 days LEVOFLOXACIN 90823000990 No Longer Active Harinder Hernandez DO Active VENTOLIN HFA 108 (90 Base) MCG/ACT INHALATION AEROSOL SOLUTION 2 -4 puffs four times a day PRN ALBUTEROL SULFATE 96701393717 No Longer Active Jeri Sosa LPN Active ACEBUTOLOL HCL 200 MG ORAL CAPSULE 1 cap in the morning and 2 caps in the evening ACEBUTOLOL HCL 32452465086 No Longer Active Harinder Hernandez DO Active CEFDINIR 300 MG ORAL CAPSULE take 1 cap po bid x 10 days CEFDINIR 23293625347 No Longer Active Harinder Hernandez DO Active LOVASTATIN 40 MG ORAL TABLET 1 pill by mouth nightly for cholesterol LOVASTATIN 04881768010 No Longer Active Nettie Newberry APRN Active NITROSTAT 0.4 MG SUBLINGUAL TABLET SUBLINGUAL 1 tab under tongueas needed for chest pain ( may take 3 total, 5 min apart, then call 911) NITROGLYCERIN 77149421155 No Longer Active Nettie Newberry APRN Active POTASSIUM CHLORIDE ER 10 MEQ ORAL CAPSULE EXTENDED RELEASE 1 capsule by mouth daily POTASSIUM CHLORIDE 87020819162 No Longer Active Nettie Newberry APRN Active TESSALON PERLES 100 MG ORAL CAPSULE 1 to 2 tablets by mouth 3 times daily as needed for cough BENZONATATE 44703081146 No Longer Active Nettie Newberry APRN Active PREDNISONE 20 MG ORAL TABLET 2 po qd x 5 days PREDNISONE 24475241696 No Longer Active Jae Morgan MD Active AZITHROMYCIN 250 MG ORAL TABLET 2 po qd x 1 day, then 1 po qd x 4 days 12/30 AZITHROMYCIN 31426368850 No Longer Active Jae Morgan MD Active PREDNISONE 20 MG ORAL TABLET 1 tab twice daily for 3 day, then one daily for three days PREDNISONE 45099377692 No Longer Active Jae Morgan MD Active SINGULAIR 10 MG ORAL TABLET 1 pill by mouth every evening for breathing. 2014 MONTELUKAST SODIUM 98713150024 Active Meenu Alejo LPN Active TYLENOL 325 MG ORAL TABLET 3 by mouth q4h as needed ACETAMINOPHEN 14316853569 Active Harinder Hernandez DO Active POTASSIUM CHLORIDE ER 10 MEQ ORAL TABLET EXTENDED RELEASE take 1 tab po daily POTASSIUM CHLORIDE 35954960152 No Longer Active Harinder Hernandez DO Active PREDNISONE 20 MG ORAL TABLET 1 TID x 2 days, then 1 BID x 3 days, then 1 Daily x 3 days, then stop PREDNISONE 44050491107 No Longer Active Jillina Frazellor MCCRAY Active LEVAQUIN 500 MG ORAL TABLET 1 tablet by mouth daily LEVOFLOXACIN 40147134007 No Longer Active Jillina Frazell CERAMIC PAINTER Active NEURONTIN 300 MG ORAL CAPSULE 1 cap by mouth three times daily for restless leg GABAPENTIN 55241072191 No Longer Active Harinder Hernandez DO Active BENZONATATE 100 MG ORAL CAPSULE 1 cap po TID PRN BENZONATATE 41290645962 No Longer Active Harinder Hernandez DO Active MONTELUKAST SODIUM 10 MG ORAL TABLET 1 tab po in the evening 2014 MONTELUKAST SODIUM 60004284562 No Longer Active Harinder Hernandez DO Active MUPIROCIN 2 % EXTERNAL OINTMENT apply to affected area BID x 14 days MUPIROCIN 69910824804 No Longer Active Harinder Hernandez DO Active TYLENOL EXTRA STRENGTH 500 MG ORAL TABLET as needed ACETAMINOPHEN 21932113665 No Longer Active Harinder Hernandez DO Active PREDNISONE 10 MG ORAL TABLET 1 tab po daily PREDNISONE 53287923300 No Longer Active Harinder Hernandez DO Active PREDNISONE 20 MG ORAL TABLET 2 tabs daily for 4 days, 1 tab daily for 4 days, 1/2 tab daily for 4 days PREDNISONE 70503289690 No Longer Active Harinder Hernandez DO Active AZITHROMYCIN 250 MG ORAL TABLET 2 po qd x 1 day, then 1 po qd x 4 days 04/06 AZITHROMYCIN 04715320957 No Longer Active Harinder Hernandez DO Active PREDNISONE 20 MG ORAL TABLET 3 tabs today, then 1 tab twice daily for 3 day, then one daily for three days PREDNISONE 06410316617 No Longer Active Harinder Hernandez DO Active NIFEDIAC CC 30 MG ORAL TABLET EXTENDED RELEASE 24 HOUR 1 tablet daily for raynaud's syndrome NIFEDIPINE 46702122365 No Longer Active Tawnya Pardo MA Active AMBIEN 10 MG ORAL TABLET 1/2 tab by mouth at bedtime as needed for sleep 2013 ZOLPIDEM TARTRATE 67365600869 Active Meenu Alejo LPN Active CLONAZEPAM 1 MG ORAL TABLET 1 tablet at bedtime for insomnia and restless legs CLONAZEPAM 73457783670 Active Meenu Alejo LPN Active CLONAZEPAM 0.5 MG ORAL TABLET 1 tab po daily CLONAZEPAM 99204651182 No Longer Active Harinder Hernandez DO Active PREDNISONE 10 MG ORAL TABLET 1 tablet daily for COPD PREDNISONE 19603211769 Active Kortney Mccain Active PROAIR HFA 108 (90 Base) MCG/ACT INHALATION AEROSOL SOLUTION 2 puffs four times a day as needed ALBUTEROL SULFATE 11016898419 Active Harinder Hernandez DO Active FLOVENT HFA 110 MCG/ACT INHALATION AEROSOL 2 puffs inhaled b.i.d. FLUTICASONE PROPIONATE HFA 25495877268 Active Kortney Mccain Active ACIPHEX 20 MG ORAL TABLET DELAYED RELEASE 1 tab po daily RABEPRAZOLE SODIUM 79657036324 Active Meenu Alejo LPN Active CLONAZEPAM 0.5 MG ORAL TABLET 1 tab po daily CLONAZEPAM 0.5 MG ORAL TABLET 085453 CLONAZEPAM Inactive PREDNISONE 20 MG ORAL TABLET 3 tabs today, then 1 tab twice daily for 3 day, then one daily for three days PREDNISONE 20 MG ORAL TABLET 381446 PREDNISONE Inactive PREDNISONE 20 MG ORAL TABLET 2 tabs daily for 4 days, 1 tab daily for 4 days, 1/2 tab daily for 4 days PREDNISONE 20 MG ORAL TABLET 831362 PREDNISONE Inactive PREDNISONE 10 MG ORAL TABLET 1 tab po daily PREDNISONE 10 MG ORAL TABLET 553535 PREDNISONE Inactive TYLENOL EXTRA STRENGTH 500 MG ORAL TABLET as needed TYLENOL EXTRA STRENGTH 500 MG ORAL TABLET 452578 ACETAMINOPHEN Inactive MUPIROCIN 2 % EXTERNAL OINTMENT apply to affected area BID x 14 days MUPIROCIN 2 % EXTERNAL OINTMENT 384120 MUPIROCIN Inactive MONTELUKAST SODIUM 10 MG ORAL TABLET 1 tab po in the evening 2014 MONTELUKAST SODIUM 10 MG ORAL TABLET 301261 MONTELUKAST SODIUM Inactive BENZONATATE 100 MG ORAL CAPSULE 1 cap po TID PRN BENZONATATE 100 MG ORAL CAPSULE 934741 BENZONATATE Inactive NEURONTIN 300 MG ORAL CAPSULE 1 cap by mouth three times daily for restless leg NEURONTIN 300 MG ORAL CAPSULE 133665 GABAPENTIN Inactive LEVAQUIN 500 MG ORAL TABLET 1 tablet by mouth daily LEVAQUIN 500 MG ORAL TABLET 766506 LEVOFLOXACIN Inactive PREDNISONE 20 MG ORAL TABLET 1 TID x 2 days, then 1 BID x 3 days, then 1 Daily x 3 days, then stop PREDNISONE 20 MG ORAL TABLET 041169 PREDNISONE Inactive POTASSIUM CHLORIDE ER 10 MEQ ORAL TABLET EXTENDED RELEASE take 1 tab po daily POTASSIUM CHLORIDE ER 10 MEQ ORAL TABLET EXTENDED RELEASE POTASSIUM CHLORIDE Inactive PREDNISONE 20 MG ORAL TABLET 1 tab twice daily for 3 day, then one daily for three days PREDNISONE 20 MG ORAL TABLET 670668 PREDNISONE Inactive TESSALON PERLES 100 MG ORAL CAPSULE 1 to 2 tablets by mouth 3 times daily as needed for cough TESSALON PERLES 100 MG ORAL CAPSULE 937321 BENZONATATE Inactive POTASSIUM CHLORIDE ER 10 MEQ ORAL CAPSULE EXTENDED RELEASE 1 capsule by mouth daily POTASSIUM CHLORIDE ER 10 MEQ ORAL CAPSULE EXTENDED RELEASE POTASSIUM CHLORIDE Inactive NITROSTAT 0.4 MG SUBLINGUAL TABLET SUBLINGUAL 1 tab under tongueas needed for chest pain ( may take 3 total, 5 min apart, then call 911) NITROSTAT 0.4 MG SUBLINGUAL TABLET SUBLINGUAL 252366 NITROGLYCERIN Inactive LOVASTATIN 40 MG ORAL TABLET 1 pill by mouth nightly for cholesterol LOVASTATIN 40 MG ORAL TABLET 845877 LOVASTATIN Inactive CEFDINIR 300 MG ORAL CAPSULE take 1 cap po bid x 10 days CEFDINIR 300 MG ORAL CAPSULE 651112 CEFDINIR Inactive ACEBUTOLOL HCL 200 MG ORAL CAPSULE 1 cap in the morning and 2 caps in the evening ACEBUTOLOL HCL 200 MG ORAL CAPSULE 034222 ACEBUTOLOL HCL Inactive VENTOLIN HFA 108 (90 Base) MCG/ACT INHALATION AEROSOL SOLUTION 2 -4 puffs four times a day PRN VENTOLIN HFA 108 (90 Base) MCG/ ACT INHALATION AEROSOL SOLUTION ALBUTEROL SULFATE Inactive LEVAQUIN 500 MG ORAL TABLET Take 1 tab po daily x 8 days LEVAQUIN 500 MG ORAL TABLET 478727 LEVOFLOXACIN Inactive PREDNISONE 20 MG ORAL TABLET 2 tabs daily for 4 days, 1 tab daily for 4 days, 1/2 tab daily for 4 days PREDNISONE 20 MG ORAL TABLET 169711 PREDNISONE Inactive LOVASTATIN 40 MG ORAL TABLET Take 1 tab po every hs LOVASTATIN 40 MG ORAL TABLET 628584 LOVASTATIN Inactive DILAUDID 2 MG ORAL TABLET Take 1/2 tab po every 4 hours as needed for pain DILAUDID 2 MG ORAL TABLET 012745 HYDROMORPHONE HCL Inactive AMITRIPTYLINE HCL 25 MG ORAL TABLET 1 q hs prn AMITRIPTYLINE HCL 25 MG ORAL TABLET 569574 AMITRIPTYLINE HCL Inactive MECLIZINE HCL 25 MG ORAL TABLET 1 tablet three times daily for 3 days, then 1/ 2 tab three times daily for 3 days. MECLIZINE HCL 25 MG ORAL TABLET 291740 MECLIZINE HCL Inactive AMLODIPINE BESYLATE 5 MG ORAL TABLET Take 1 tab po daily AMLODIPINE BESYLATE 5 MG ORAL TABLET 113848 AMLODIPINE BESYLATE Inactive TOPIRAMATE 25 MG ORAL TABLET 1 tab po BID TOPIRAMATE 25 MG ORAL TABLET 750819 TOPIRAMATE Inactive PREDNISONE 20 MG ORAL TABLET 1 tablet twice daily for 2 days, then 1 tablet once daily for 2 days PREDNISONE 20 MG ORAL TABLET 711878 PREDNISONE Inactive PREDNISONE 20 MG ORAL TABLET 1 tab twice daily for 3 day, then one daily for three days PREDNISONE 20 MG ORAL TABLET 611283 PREDNISONE Inactive NIFEDIPINE ER 30 MG ORAL TABLET EXTENDED RELEASE 24 HOUR 1 daily NIFEDIPINE ER 30 MG ORAL TABLET EXTENDED RELEASE 24 HOUR NIFEDIPINE Inactive AMLODIPINE BESYLATE 5 MG ORAL TABLET 1 tablet by mouth daily 2016 AMLODIPINE BESYLATE 5 MG ORAL TABLET 823535 AMLODIPINE BESYLATE Inactive LASIX 20 MG ORAL TABLET 1 tablet by mouth every morning LASIX 20 MG ORAL TABLET 804082 FUROSEMIDE Inactive POTASSIUM CHLORIDE ER 10 MEQ ORAL CAPSULE EXTENDED RELEASE 1 capsule BID 2016 POTASSIUM CHLORIDE ER 10 MEQ ORAL CAPSULE EXTENDED RELEASE POTASSIUM CHLORIDE Inactive POTASSIUM CHLORIDE 20 MEQ ORAL PACKET 1 tab po q day POTASSIUM CHLORIDE 20 MEQ ORAL PACKET 3211075 POTASSIUM CHLORIDE Inactive PREDNISONE 20 MG ORAL TABLET 2 tablets by mouth today, then 1 tablet by mouth days 2-3 PREDNISONE 20 MG ORAL TABLET 512318 PREDNISONE Inactive SPIRONOLACTONE 25 MG ORAL TABLET 1 tablet by mouth daily SPIRONOLACTONE 25 MG ORAL TABLET 760027 SPIRONOLACTONE Inactive AZITHROMYCIN 250 MG ORAL TABLET 2 po qd x 1 day, then 1 po qd x 4 days 04/06 AZITHROMYCIN 250 MG ORAL TABLET 326882 AZITHROMYCIN Inactive AZITHROMYCIN 250 MG ORAL TABLET 2 po qd x 1 day, then 1 po qd x 4 days 12/30 AZITHROMYCIN 250 MG ORAL TABLET 579976 AZITHROMYCIN Inactive PREDNISONE 20 MG ORAL TABLET 2 po qd x 5 days PREDNISONE 20 MG ORAL TABLET 886947 PREDNISONE Inactive Vital Signs Date Name Value [...] Panel - Chemistry sodium, serum 140 mmol/L 121-765 2792/07/13 potassium, serum 3.2 mmol/L 3.5-5.2 chloride, serum 103 mmol/L 98-107 carbon dioxide, venous blood 26.9 mmol/L 21.0-32.0 blood glucose 93 mg/dL 65-110 calcium, serum 9.2 mg/dL 8.5-10.1 urea nitrogen, blood 13 mg/dL 7-18 creatinine, serum 0.84 mg/dL 0.60-1.30 sodium, serum 140 mmol/L 324-572 1993/08/21 potassium, serum 3.8 mmol/L 3.5-5.2 chloride, serum [...] ... - Chemistry sodium, serum 141 mmol/L 779-285 4528/08/07 carbon dioxide, venous blood 34.0 mmol/L 21.0-32.0 [...] 1.40 mg/dL 0.00-1.00 cholesterol, serum 192 mg/dL 265-238 1910/10/19 triglyceride, serum, fasting 71 mg/dL 30-200 HDL cholesterol, serum 72 mg/dL 32-60 LDL cholesterol, serum 106 mg/dL 0-130 Lab Report: Rapid Strep - Lab Microbial identification kit, rapid strep method Negative Negative Lab Report: THEOPHYLLINE - Toxicology theophylline level, serum 3.1 ug/mL 10.0-20.0 Encounters Code Encounter Date Provider Facility CPT-12273 Level 4 Est. Patient 10:17:51 VETERINARY PRACTITIONER Harinder Cr [facility] CPT-91939 Level 3 Est. Patient 12:36:15 VETERINARY PRACTITIONER Harinder Cr [facility] CPT-53672 Level 3 Est. Patient 15:14:45 VETERINARY PRACTITIONER Harinder Cr [facility] CPT-74752 Level 4 Est. Patient 14:45:25 CDT Harinder Cr [facility] CPT-38613 Level 4 Est. Patient 09:15:13 CDT Harinder Cr [facility] CPT-50274 Level 3 Est. Patient 11:51:58 CDT Harinder Cr [facility] CPT-45718 Level 3 Est. Patient 11:30:05 CDT Harinder Cr [facility] CPT-19663 Level 4 Est. Patient 10:19:23 CDT Harinder Cr [facility] CPT-55285 Level 3 Est. Patient 09:58:58 CDT Harinder Cr [facility] CPT-91821 Level 3 Est. Patient 12:37:21 CDT Harinder Cr [facility] CPT-82069 Level 3 Est. Patient 18:37:17 CDT Harinder Hernandez [facility] CPT-49250 Level 4 Est. Patient 11:15:54 CDT Nettie Newberry APRN [facility] CPT-91051 Level 3 Est. Patient 16:42:24 CDT Harinder Hernandez [facility] CPT-40279 Level 3 Est. Patient 15:03:36 CDT Harinder Hernandez [facility] CPT-25916 Level 3 Est. Patient 15:03:20 CDT Harinder Hernandez [facility] CPT-64633 Level 3 Est. Patient 12:14:34 CDT Harinder Hernandez [facility] CPT-00329 Level 3 Est. Patient 13:47:15 CDT Harinder Hernandez [facility] CPT-41875 Level 3 Est. Patient 14:08:24 CDT Harinder Hernandez [facility] CPT-66012 Level 3 Est. Patient 10:07:15 CDT Harinder Hernandez [facility] CPT-14759 Level 3 Est. Patient 10:06:59 CDT Harinder Hernandez [facility] CPT-12507 Level 3 Est. Patient 15:53:29 CDT Jae Morgan MD [facility] CPT-69226 Level 3 Est. Patient 17:19:04 CDT Harinder Hernandez [facility] CPT-85309 Level 3 Est. Patient 11:13:01 CDT Harinder Shaye Hernandez [facility] CPT-84324 Level 3 Est. Patient 09:03:58 CDT Harinder Hernandez [facility] CPT-54547 Level 3 Est. Patient 14:46:45 VETERINARY PRACTITIONER Harinder Cr David [facility] CPT-82332 Level 3 Est. Patient 09:35:49 VETERINARY PRACTITIONER Harinder W [facility] CPT-03264 Level 3 Est. Patient 09:29:37 VETERINARY PRACTITIONER Harinder Hernandez [facility] CPT-19185 Level 3 Est. Patient 15:51:07 CDT Harinder Hernandez [facility] CPT-21512 Level 3 Est. Patient 18:13:13 CDT Harinder Hernandez [facility] CPT-03952 Level 3 Est. Patient 10:44:19 CDT Harinder Hernandez [facility] CPT-42813 Level 4 Est. Patient 10:07:19 VETERINARY PRACTITIONER Harinder Cr [facility] CPT-14894 Level 3 Est. Patient 15:59:32 VETERINARY PRACTITIONER Harinder Hernandez [facility] Procedures Code Procedure Name Date Entry Date Standard Description CPT-G0009 Administration of Pneumococcal Vaccine 10:33:25 VETERINARY PRACTITIONER CPT-08662 Pneumovax 23 Injection Injectable 25 MCG/0.5ML 10:33:25 VETERINARY PRACTITIONER CPT-78680 First Vx - Ix admin for Medicare patients 10:33:25 VETERINARY PRACTITIONER CPT-93070 Fluzone Quadrivalent Intramuscular Suspension 0.5 ML 10: 33:25 VETERINARY PRACTITIONER CPT-Cryo Cryotherapy 10:17:51 VETERINARY PRACTITIONER CPT-G0438 Initial Annual Wellness Exam 10:08:59 VETERINARY PRACTITIONER CPT-07034 Abd compl w upright - XRAY USE ONLY 14:48:09 CDT 02/18 CPT-57610 Port a cath flush 13:46:05 CDT CPT-81532 Hip, complete, 2-3 views - XRAY USE ONLY 10:28:40 CDT CPT-18167 BMP - LAB USE ONLY 16:45:09 VETERINARY PRACTITIONER CPT-70967 Port a cath flush 12:00:13 VETERINARY PRACTITIONER CPT-TCMM Transitional Care Mgmt-Moderate 11:20:16 VETERINARY PRACTITIONER CPT-82134 First Vx - Ix admin for Medicare patients 17:35:15 CDT CPT-92679 Fluzone Preservative Free Intramuscular Suspension 17:35 :15 CDT CPT-21050 Microalbumin - LAB USE ONLY 11:52:05 CDT CPT-TCMM Transitional Care Mgmt-Moderate 11:33:57 CDT CPT-19414 No Charge Offi Visit 14:11:29 CDT CPT-42534 Magnesium - LAB USE ONLY 10:45:44 CDT CPT-26781 Lipid - LAB USE ONLY 10:45:44 CDT CPT-26821 CBC - LAB USE ONLY 10:45:44 CDT CPT-35063 Venipuncture Draw Fee 10:45:43 CDT CPT-38566 Venipuncture Draw Fee 18:21:27 CDT CPT-JTINJ Asp/Joint Injection 18:38:04 CDT CPT-45457 Immunization Each Additional Inj 17:38:04 CDT CPT-78820 Immunization Single Admin 17:38:04 CDT CPT-63691 Prevnar 13 17:38:04 CDT CPT-82252 Fluzone Quadrivalent preservative free (>=3yrs.) 17:38: 04 CDT CPT-29235 No Charge Offi Visit 11:14:03 CDT CPT-53751 Chest 2V Frontal and Lat 14:00:18 CDT CPT-OV Office Visit 16:10:28 CDT CPT-JTINJ Asp/Joint Injection 09:03:57 CDT CPT-Cryo Cryotherapy 09:35:49 VETERINARY PRACTITIONER CPT-JTINJ Asp/Joint Injection 09:34:45 VETERINARY PRACTITIONER CPT-J2930 Solu Medrol 125 mg (Methyl Prednisolone Sodium Succinate) 20:37:27 CDT CPT-04142 Abx/Therapy Injection 20:37:27 CDT CPT-08135 Port a cath flush 08:15:51 CDT CPT-83039 Port a cath flush 09:54:16 CDT CPT-65312 Port a cath flush 09:38:02 CDT CPT-32860 Port a cath flush 11:00:27 VETERINARY PRACTITIONER
--- OUTSIDE RECORDS SUMMARY | 2017-12-29 03:46 | XMS REPORT | Clinical Summary ---
Author Author Admin, QIE Organization [facility] Address Unknown Phone Unavailable Allergies, Adverse Reactions, [...] tab SL q5min PRN chest pain NITROGLYCERIN [id number] Active Meenu Alejo LPN Active THEOPHYLLINE ER 300 MG ORAL TABLET EXTENDED RELEASE 12 HOUR 1 po BID THEOPHYLLINE 51007910818 Active Kortney Mccain Active POTASSIUM CHLORIDE ER 20 MEQ ORAL TABLET EXTENDED RELEASE 1 po q day POTASSIUM CHLORIDE 36471832319 Active Kortney Mccain Active POTASSIUM CHLORIDE 20 MEQ ORAL PACKET 1 tab po q day POTASSIUM CHLORIDE 71993955846 No Longer Active Kortney Mccain Active POTASSIUM CHLORIDE ER 10 MEQ ORAL CAPSULE EXTENDED RELEASE 1 capsule BID 2016 POTASSIUM CHLORIDE 84317904928 No Longer Active Kortney Mccain Active LASIX 20 MG ORAL TABLET 1 tablet by mouth every morning FUROSEMIDE 01918771258 No Longer Active Kortney Mccain Active SPIRONOLACTONE 25 MG ORAL TABLET 1 tablet by mouth daily SPIRONOLACTONE 89058189327 Active Kortney Mccain Active FLUOXETINE HCL 10 MG ORAL CAPSULE 1 po qd for depression/anxiety FLUOXETINE HCL 78361915739 Active Harinder Hernandez DO Active VOLTAREN 1 % TRANSDERMAL GEL apply q 6-8 hour to left arm as needed for pain DICLOFENAC SODIUM 47971074406 Active Kortney Mccain Active ALBUTEROL SULFATE (2.5 MG/3ML) 0.083% INHALATION NEBULIZATION SOLUTION 1 vial neb q 4hrs for severe asthma. 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 NIFEDIPINE 15061761741 Active Kortney Mccain Active AMLODIPINE BESYLATE 5 MG ORAL TABLET 1 tablet by mouth daily 2016 AMLODIPINE BESYLATE 98858903890 No Longer Active Harinder Hernandez DO Active TOPAMAX 25 MG ORAL TABLET 1 tab po BID TOPIRAMATE 34529826056 Active Kortney Mccain Active FLUTICASONE PROPIONATE 50 MCG/ACT NASAL SUSPENSION 2 sprays per nostril daily PRN Allergies FLUTICASONE PROPIONATE 26646864495 Active Meenu Alejo LPN Active NIFEDIPINE ER 30 MG ORAL TABLET EXTENDED RELEASE 24 HOUR 1 daily NIFEDIPINE 18847987745 No Longer Active Harinder Hernandez DO Active FLOVENT HFA 110 MCG/ACT INHALATION AEROSOL 2 puffs inhaled b.i.d. FLUTICASONE PROPIONATE HFA 60534756612 Active Harinder Hernandez DO Active EPIPEN 2-BRUNA 0.3 MG/0.3ML INJECTION SOLUTION AUTO-INJECTOR 1 INJ NEEDED EPINEPHRINE 88201882383 Active Kortney Mccain Active PREDNISONE 20 MG ORAL TABLET 1 tab twice daily for 3 day, then one daily for three days PREDNISONE 46291626286 No Longer Active Harinder Hernandez DO Active PREDNISONE 20 MG ORAL TABLET 1 tablet twice daily for 2 days, then 1 tablet once daily for 2 days PREDNISONE 00816418547 No Longer Active Harinder Hernandez DO Active ASMANEX 120 METERED DOSES 220 MCG/INH INHALATION AEROSOL POWDER BREATH ACTIVATED 2 puffs orally twice daily MOMETASONE FUROATE 06840176440 Active Jeri Sosa LPN Active TOPIRAMATE 25 MG ORAL TABLET 1 tab po BID TOPIRAMATE 07961424085 No Longer Active Nettie Newberry APRN Active AMLODIPINE BESYLATE 5 MG ORAL TABLET Take 1 tab po daily AMLODIPINE BESYLATE 72664037184 No Longer Active Nettie Newberry APRN Active MECLIZINE HCL 25 MG ORAL TABLET 1 tablet three times daily for 3 days, then 1/ 2 tab three times daily for 3 days. MECLIZINE HCL 00295931208 No Longer Active Nettie Newberry APRN Active AMITRIPTYLINE HCL 25 MG ORAL TABLET 1 q hs prn AMITRIPTYLINE HCL 58720975200 No Longer Active Nettie Newberry APRN Active DILAUDID 2 MG ORAL TABLET Take 1/2 tab po every 4 hours as needed for pain HYDROMORPHONE HCL 82711767188 No Longer Active Nettie Newberry APRN Active CLOPIDOGREL BISULFATE 75 MG ORAL TABLET 1 tab by mouth once daily CLOPIDOGREL BISULFATE 75009994307 Active Meenu Alejo LPN Active ATORVASTATIN CALCIUM 10 MG ORAL TABLET 1 at bedtime ATORVASTATIN CALCIUM 03889408834 Active Kortney Mccain Active LOVASTATIN 40 MG ORAL TABLET Take 1 tab po every hs LOVASTATIN 36592332843 No Longer Active Harinder Hernandez DO Active PREDNISONE 20 MG ORAL TABLET 2 tabs daily for 4 days, 1 tab daily for 4 days, 1/2 tab daily for 4 days PREDNISONE 07435562976 No Longer Active Harinder Hernandez DO Active LEVAQUIN 500 MG ORAL TABLET Take 1 tab po daily x 8 days LEVOFLOXACIN 31609350906 No Longer Active Harinder Hernandez DO Active VENTOLIN HFA 108 (90 Base) MCG/ACT INHALATION AEROSOL SOLUTION 2 -4 puffs four times a day PRN ALBUTEROL SULFATE 73909742282 No Longer Active Jeri Sosa LPN Active ACEBUTOLOL HCL 200 MG ORAL CAPSULE 1 cap in the morning and 2 caps in the evening ACEBUTOLOL HCL 94734590662 No Longer Active Harinder Hernandez DO Active CEFDINIR 300 MG ORAL CAPSULE take 1 cap po bid x 10 days CEFDINIR 39620208326 No Longer Active Harinder Hernandez DO Active LOVASTATIN 40 MG ORAL TABLET 1 pill by mouth nightly for cholesterol LOVASTATIN 02946201059 No Longer Active Nettie Newberry APRN Active NITROSTAT 0.4 MG SUBLINGUAL TABLET SUBLINGUAL 1 tab under tongueas needed for chest pain ( may take 3 total, 5 min apart, then call 911) NITROGLYCERIN 89024717038 No Longer Active Nettie Newberry APRN Active POTASSIUM CHLORIDE ER 10 MEQ ORAL CAPSULE EXTENDED RELEASE 1 capsule by mouth daily POTASSIUM CHLORIDE 80096181588 No Longer Active Nettie Newberry APRN Active TESSALON PERLES 100 MG ORAL CAPSULE 1 to 2 tablets by mouth 3 times daily as needed for cough BENZONATATE 08169281601 No Longer Active Nettie Newberry APRN Active PREDNISONE 20 MG ORAL TABLET 2 po qd x 5 days PREDNISONE 73871028379 No Longer Active Jae Morgan MD Active AZITHROMYCIN 250 MG ORAL TABLET 2 po qd x 1 day, then 1 po qd x 4 days 12/30 AZITHROMYCIN 12775540088 No Longer Active Jae Morgan MD Active PREDNISONE 20 MG ORAL TABLET 1 tab twice daily for 3 day, then one daily for three days PREDNISONE 94156375348 No Longer Active Jae Morgan MD Active SINGULAIR 10 MG ORAL TABLET 1 pill by mouth every evening for breathing. 2014 MONTELUKAST SODIUM 61256025283 Active Meenu Alejo LPN Active TYLENOL 325 MG ORAL TABLET 3 by mouth q4h as needed ACETAMINOPHEN 11798482960 Active Harinder Hernandez DO Active POTASSIUM CHLORIDE ER 10 MEQ ORAL TABLET EXTENDED RELEASE take 1 tab po daily POTASSIUM CHLORIDE 05210765191 No Longer Active Harinder Hernandez DO Active PREDNISONE 20 MG ORAL TABLET 1 TID x 2 days, then 1 BID x 3 days, then 1 Daily x 3 days, then stop PREDNISONE 37507817004 No Longer Active Jillina Frazell SALVAGER Active LEVAQUIN 500 MG ORAL TABLET 1 tablet by mouth daily LEVOFLOXACIN 34796519257 No Longer Active Jillina Frazell SALVAGER Active NEURONTIN 300 MG ORAL CAPSULE 1 cap by mouth three times daily for restless leg GABAPENTIN 11498126000 No Longer Active Harinder Hernandez DO Active BENZONATATE 100 MG ORAL CAPSULE 1 cap po TID PRN BENZONATATE 67702464699 No Longer Active Harinder Hernandez DO Active MONTELUKAST SODIUM 10 MG ORAL TABLET 1 tab po in the evening 2014 MONTELUKAST SODIUM 69260497052 No Longer Active Harinder Hernandez DO Active MUPIROCIN 2 % EXTERNAL OINTMENT apply to affected area BID x 14 days MUPIROCIN 12546154144 No Longer Active Harinder Hernandez DO Active TYLENOL EXTRA STRENGTH 500 MG ORAL TABLET as needed ACETAMINOPHEN 86800478795 No Longer Active Harinder Hernandez DO Active PREDNISONE 10 MG ORAL TABLET 1 tab po daily PREDNISONE 37376514545 No Longer Active Harinder Hernandez DO Active PREDNISONE 20 MG ORAL TABLET 2 tabs daily for 4 days, 1 tab daily for 4 days, 1/2 tab daily for 4 days PREDNISONE 47060123178 No Longer Active Harinder Hernandez DO Active AZITHROMYCIN 250 MG ORAL TABLET 2 po qd x 1 day, then 1 po qd x 4 days 04/06 AZITHROMYCIN 23569472374 No Longer Active Harinder Hernandez DO Active PREDNISONE 20 MG ORAL TABLET 3 tabs today, then 1 tab twice daily for 3 day, then one daily for three days PREDNISONE 99965040838 No Longer Active Harinder Hernandez DO Active NIFEDIAC CC 30 MG ORAL TABLET EXTENDED RELEASE 24 HOUR 1 tablet daily for raynaud's syndrome NIFEDIPINE 11035187104 No Longer Active Tawnya Pardo MA Active AMBIEN 10 MG ORAL TABLET 1/2 tab by mouth at bedtime as needed for sleep 2013 ZOLPIDEM TARTRATE 65501239072 Active Meenu Alejo LPN Active CLONAZEPAM 1 MG ORAL TABLET 1 tablet at bedtime for insomnia and restless legs CLONAZEPAM 18735617459 Active Harinder Hernandez DO Active CLONAZEPAM 0.5 MG ORAL TABLET 1 tab po daily CLONAZEPAM 53143394692 No Longer Active Harinder Hernandez DO Active PREDNISONE 10 MG ORAL TABLET 1 tablet daily for COPD PREDNISONE 38122170873 Active Kortney Mccain Active PROAIR HFA 108 (90 Base) MCG/ACT INHALATION AEROSOL SOLUTION 2 puffs four times a day as needed ALBUTEROL SULFATE 61345728020 Active Harinder Hernandez DO Active FLOVENT HFA 110 MCG/ACT INHALATION AEROSOL 2 puffs inhaled b.i.d. FLUTICASONE PROPIONATE HFA 17096237663 Active Kortney Mccain Active ACIPHEX 20 MG ORAL TABLET DELAYED RELEASE 1 tab po daily RABEPRAZOLE SODIUM 76032445695 Active Kaylah Newberry Active CLONAZEPAM 0.5 MG ORAL TABLET 1 tab po daily CLONAZEPAM 0.5 MG ORAL TABLET 560391 CLONAZEPAM Inactive PREDNISONE 20 MG ORAL TABLET 3 tabs today, then 1 tab twice daily for 3 day, then one daily for three days PREDNISONE 20 MG ORAL TABLET 169637 PREDNISONE Inactive PREDNISONE 20 MG ORAL TABLET 2 tabs daily for 4 days, 1 tab daily for 4 days, 1/2 tab daily for 4 days PREDNISONE 20 MG ORAL TABLET 189567 PREDNISONE Inactive PREDNISONE 10 MG ORAL TABLET 1 tab po daily PREDNISONE 10 MG ORAL TABLET 726634 PREDNISONE Inactive TYLENOL EXTRA STRENGTH 500 MG ORAL TABLET as needed TYLENOL EXTRA STRENGTH 500 MG ORAL TABLET 399898 ACETAMINOPHEN Inactive MUPIROCIN 2 % EXTERNAL OINTMENT apply to affected area BID x 14 days MUPIROCIN 2 % EXTERNAL OINTMENT 134840 MUPIROCIN Inactive MONTELUKAST SODIUM 10 MG ORAL TABLET 1 tab po in the evening 2014 MONTELUKAST SODIUM 10 MG ORAL TABLET 004237 MONTELUKAST SODIUM Inactive BENZONATATE 100 MG ORAL CAPSULE 1 cap po TID PRN BENZONATATE 100 MG ORAL CAPSULE 574656 BENZONATATE Inactive NEURONTIN 300 MG ORAL CAPSULE 1 cap by mouth three times daily for restless leg NEURONTIN 300 MG ORAL CAPSULE 101856 GABAPENTIN Inactive LEVAQUIN 500 MG ORAL TABLET 1 tablet by mouth daily LEVAQUIN 500 MG ORAL TABLET 287644 LEVOFLOXACIN Inactive PREDNISONE 20 MG ORAL TABLET 1 TID x 2 days, then 1 BID x 3 days, then 1 Daily x 3 days, then stop PREDNISONE 20 MG ORAL TABLET 559047 PREDNISONE Inactive POTASSIUM CHLORIDE ER 10 MEQ ORAL TABLET EXTENDED RELEASE take 1 tab po daily POTASSIUM CHLORIDE ER 10 MEQ ORAL TABLET EXTENDED RELEASE POTASSIUM CHLORIDE Inactive PREDNISONE 20 MG ORAL TABLET 1 tab twice daily for 3 day, then one daily for three days PREDNISONE 20 MG ORAL TABLET 248316 PREDNISONE Inactive TESSALON PERLES 100 MG ORAL CAPSULE 1 to 2 tablets by mouth 3 times daily as needed for cough TESSALON PERLES 100 MG ORAL CAPSULE 752902 BENZONATATE Inactive POTASSIUM CHLORIDE ER 10 MEQ ORAL CAPSULE EXTENDED RELEASE 1 capsule by mouth daily POTASSIUM CHLORIDE ER 10 MEQ ORAL CAPSULE EXTENDED RELEASE POTASSIUM CHLORIDE Inactive NITROSTAT 0.4 MG SUBLINGUAL TABLET SUBLINGUAL 1 tab under tongueas needed for chest pain ( may take 3 total, 5 min apart, then call 911) NITROSTAT 0.4 MG SUBLINGUAL TABLET SUBLINGUAL 565135 NITROGLYCERIN Inactive LOVASTATIN 40 MG ORAL TABLET 1 pill by mouth nightly for cholesterol LOVASTATIN 40 MG ORAL TABLET 363969 LOVASTATIN Inactive CEFDINIR 300 MG ORAL CAPSULE take 1 cap po bid x 10 days CEFDINIR 300 MG ORAL CAPSULE 325755 CEFDINIR Inactive ACEBUTOLOL HCL 200 MG ORAL CAPSULE 1 cap in the morning and 2 caps in the evening ACEBUTOLOL HCL 200 MG ORAL CAPSULE 908878 ACEBUTOLOL HCL Inactive VENTOLIN HFA 108 (90 Base) MCG/ACT INHALATION AEROSOL SOLUTION 2 -4 puffs four times a day PRN VENTOLIN HFA 108 (90 Base) MCG/ ACT INHALATION AEROSOL SOLUTION ALBUTEROL SULFATE Inactive LEVAQUIN 500 MG ORAL TABLET Take 1 tab po daily x 8 days LEVAQUIN 500 MG ORAL TABLET 277450 LEVOFLOXACIN Inactive PREDNISONE 20 MG ORAL TABLET 2 tabs daily for 4 days, 1 tab daily for 4 days, 1/2 tab daily for 4 days PREDNISONE 20 MG ORAL TABLET 548807 PREDNISONE Inactive LOVASTATIN 40 MG ORAL TABLET Take 1 tab po every hs LOVASTATIN 40 MG ORAL TABLET 265582 LOVASTATIN Inactive DILAUDID 2 MG ORAL TABLET Take 1/2 tab po every 4 hours as needed for pain DILAUDID 2 MG ORAL TABLET 844995 HYDROMORPHONE HCL Inactive AMITRIPTYLINE HCL 25 MG ORAL TABLET 1 q hs prn AMITRIPTYLINE HCL 25 MG ORAL TABLET 076699 AMITRIPTYLINE HCL Inactive MECLIZINE HCL 25 MG ORAL TABLET 1 tablet three times daily for 3 days, then 1/ 2 tab three times daily for 3 days. MECLIZINE HCL 25 MG ORAL TABLET 325944 MECLIZINE HCL Inactive AMLODIPINE BESYLATE 5 MG ORAL TABLET Take 1 tab po daily AMLODIPINE BESYLATE 5 MG ORAL TABLET 576886 AMLODIPINE BESYLATE Inactive TOPIRAMATE 25 MG ORAL TABLET 1 tab po BID TOPIRAMATE 25 MG ORAL TABLET 554118 TOPIRAMATE Inactive PREDNISONE 20 MG ORAL TABLET 1 tablet twice daily for 2 days, then 1 tablet once daily for 2 days PREDNISONE 20 MG ORAL TABLET 005748 PREDNISONE Inactive PREDNISONE 20 MG ORAL TABLET 1 tab twice daily for 3 day, then one daily for three days PREDNISONE 20 MG ORAL TABLET 435797 PREDNISONE Inactive NIFEDIPINE ER 30 MG ORAL TABLET EXTENDED RELEASE 24 HOUR 1 daily NIFEDIPINE ER 30 MG ORAL TABLET EXTENDED RELEASE 24 HOUR NIFEDIPINE Inactive AMLODIPINE BESYLATE 5 MG ORAL TABLET 1 tablet by mouth daily 2016 AMLODIPINE BESYLATE 5 MG ORAL TABLET 592480 AMLODIPINE BESYLATE Inactive LASIX 20 MG ORAL TABLET 1 tablet by mouth every morning LASIX 20 MG ORAL TABLET 664146 FUROSEMIDE Inactive POTASSIUM CHLORIDE ER 10 MEQ ORAL CAPSULE EXTENDED RELEASE 1 capsule BID 2016 POTASSIUM CHLORIDE ER 10 MEQ ORAL CAPSULE EXTENDED RELEASE POTASSIUM CHLORIDE Inactive POTASSIUM CHLORIDE 20 MEQ ORAL PACKET 1 tab po q day POTASSIUM CHLORIDE 20 MEQ ORAL PACKET 6627433 POTASSIUM CHLORIDE Inactive AZITHROMYCIN 250 MG ORAL TABLET 2 po qd x 1 day, then 1 po qd x 4 days 04/06 AZITHROMYCIN 250 MG ORAL TABLET 759775 AZITHROMYCIN Inactive AZITHROMYCIN 250 MG ORAL TABLET 2 po qd x 1 day, then 1 po qd x 4 days 12/30 AZITHROMYCIN 250 MG ORAL TABLET 057270 AZITHROMYCIN Inactive PREDNISONE 20 MG ORAL TABLET 2 po qd x 5 days PREDNISONE 20 MG ORAL TABLET 545322 PREDNISONE Inactive Vital Signs Date Name Value [...] Panel - Chemistry sodium, serum 140 mmol/L 382-762 6237/07/13 potassium, serum 3.2 mmol/L 3.5-5.2 chloride, serum 103 mmol/L 98-107 carbon dioxide, venous blood 26.9 mmol/L 21.0-32.0 blood glucose 93 mg/dL 65-110 calcium, serum 9.2 mg/dL 8.5-10.1 urea nitrogen, blood 13 mg/dL 7-18 creatinine, serum 0.84 mg/dL 0.60-1.30 sodium, serum 140 mmol/L 315-002 9171/08/21 potassium, serum 3.8 mmol/L 3.5-5.2 chloride, serum [...] ... - Chemistry sodium, serum 141 mmol/L 683-103 2006/08/07 carbon dioxide, venous blood 34.0 mmol/L 21.0-32.0 [...] 1.40 mg/dL 0.00-1.00 cholesterol, serum 192 mg/dL 407-675 6386/10/19 triglyceride, serum, fasting 71 mg/dL 30-200 HDL cholesterol, serum 72 mg/dL 32-60 LDL cholesterol, serum 106 mg/dL 0-130 Lab Report: THEOPHYLLINE - Toxicology theophylline level, serum 3.1 ug/mL 10.0-20.0 Encounters Code Encounter Date Provider Facility CPT-54712 Level 3 Est. Patient 15:14:45 MEDICAL SECRETARY TEACHER Harinder Hernandez [facility] CPT-29918 Level 4 Est. Patient 14:45:25 CDT Harinder Hernandez [facility] CPT-17687 Level 4 Est. Patient 09:15:13 CDT Harinder Hernandez [facility] CPT-30052 Level 3 Est. Patient 11:51:58 CDT Harinder Cr [facility] CPT-30829 Level 3 Est. Patient 11:30:05 CDT Harinder Hernandez [facility] CPT-31704 Level 4 Est. Patient 10:19:23 CDT Harinder Hernandez [facility] CPT-54558 Level 3 Est. Patient 09:58:58 CDT Harinder Hernandez [facility] CPT-09421 Level 3 Est. Patient 12:37:21 CDT Harinder Hernandez [facility] CPT-29525 Level 3 Est. Patient 18:37:17 CDT Harinder Cr [facility] CPT-36301 Level 4 Est. Patient 11:15:54 CDT Nettie Newberry APRN [facility] CPT-66656 Level 3 Est. Patient 16:42:24 CDT Harinder Cr [facility] CPT-58682 Level 3 Est. Patient 15:03:36 CDT Harinder Hernandez [facility] CPT-47759 Level 3 Est. Patient 15:03:20 CDT Harinder Hernandez [facility] CPT-47831 Level 3 Est. Patient 12:14:34 CDT Harinder Hernandez [facility] CPT-19456 Level 3 Est. Patient 13:47:15 CDT Harinder Cr [facility] CPT-34576 Level 3 Est. Patient 14:08:24 CDT Harinder Hernandez [facility] CPT-52154 Level 3 Est. Patient 10:07:15 CDT Harinder rC [facility] CPT-45612 Level 3 Est. Patient 10:06:59 CDT Harinder Hernandez [facility] CPT-49904 Level 3 Est. Patient 15:53:29 CDT Jae Morgan MD [facility] CPT-98052 Level 3 Est. Patient 17:19:04 CDT Harinder Cr [facility] CPT-74792 Level 3 Est. Patient 11:13:01 CDT Harinder Hernandez [facility] CPT-40053 Level 3 Est. Patient 09:03:58 CDT Harinder Hernandez [facility] CPT-31167 Level 3 Est. Patient 14:46:45 MEDICAL SECRETARY TEACHER Harinder Hernandez [facility] CPT-74887 Level 3 Est. Patient 09:35:49 MEDICAL SECRETARY TEACHER Harinder Hernandez [facility] CPT-74697 Level 3 Est. Patient 09:29:37 MEDICAL SECRETARY TEACHER Harinder Hernandez [facility] CPT-37529 Level 3 Est. Patient 15:51:07 CDT Harinder Henrandez [facility] CPT-08132 Level 3 Est. Patient 18:13:13 CDT Harinder Cr [facility] CPT-85813 Level 3 Est. Patient 10:44:19 CDT Harinder Hernandez [facility] CPT-67027 Level 4 Est. Patient 10:07:19 MEDICAL SECRETARY TEACHER Harinder Cr [facility] CPT-46081 Level 3 Est. Patient 15:59:32 MEDICAL SECRETARY TEACHER Harinder Cr [facility] Procedures Code Procedure Name Date Entry Date Standard Description CPT-17468 Abd compl w upright - XRAY USE ONLY 14:48:09 CDT 02/18 CPT-19217 Port a cath flush 13:46:05 CDT CPT-59768 Hip, complete, 2-3 views - XRAY USE ONLY 10:28:40 CDT CPT-54919 BMP - LAB USE ONLY 16:45:09 MEDICAL SECRETARY TEACHER CPT-77979 Port a cath flush 12:00:13 MEDICAL SECRETARY TEACHER CPT-TCMM Transitional Care Mgmt-Moderate 11:20:16 MEDICAL SECRETARY TEACHER CPT-85712 First Vx - Ix admin for Medicare patients 17:35:15 CDT CPT-20681 Fluzone Preservative Free Intramuscular Suspension 17:35 :15 CDT CPT-55485 Microalbumin - LAB USE ONLY 11:52:05 CDT CPT-TCMM Transitional Care Mgmt-Moderate 11:33:57 CDT CPT-11335 No Charge Offi Visit 14:11:29 CDT CPT-15932 Magnesium - LAB USE ONLY 10:45:44 CDT CPT-03018 Lipid - LAB USE ONLY 10:45:44 CDT CPT-82064 CBC - LAB USE ONLY 10:45:44 CDT CPT-31339 Venipuncture Draw Fee 10:45:43 CDT CPT-97895 Venipuncture Draw Fee 18:21:27 CDT CPT-JTINJ Asp/Joint Injection 18:38:04 CDT CPT-42926 Immunization Each Additional Inj 17:38:04 CDT CPT-69426 Immunization Single Admin 17:38:04 CDT CPT-31712 Prevnar 13 17:38:04 CDT CPT-96167 Fluzone Quadrivalent preservative free (>=3yrs.) 17:38: 04 CDT CPT-54210 No Charge Offi Visit 11:14:03 CDT CPT-56506 Chest 2V Frontal and Lat 14:00:18 CDT CPT-OV Office Visit 16:10:28 CDT CPT-JTINJ Asp/Joint Injection 09:03:57 CDT CPT-Cryo Cryotherapy 09:35:49 MEDICAL SECRETARY TEACHER CPT-JTINJ Asp/Joint Injection 09:34:45 MEDICAL SECRETARY TEACHER CPT-J2930 Solu Medrol 125 mg (Methyl Prednisolone Sodium Succinate) 20:37:27 CDT CPT-39741 Abx/Therapy Injection 20:37:27 CDT CPT-56373 Port a cath flush 08:15:51 CDT CPT-45860 Port a cath flush 09:54:16 CDT CPT-59017 Port a cath flush 09:38:02 CDT CPT-71370 Port a cath flush 11:00:27 MEDICAL SECRETARY TEACHER
--- OUTSIDE RECORDS SUMMARY | 2017-12-29 03:48 | XMS REPORT | Clinical Summary ---
Author Author Admin, QIE Organization [facility] [employer] Address Unknown Phone Unavailable Allergies, Adverse [...] vascular catheter Back pain, lumbar 724.2 Resolved Harindre Hernandez DO Lumbago Insomnia 780.52 Resolved Harinder [...] Bicipital tenosynovitis Nausea and vomiting 787.01 Resolved Jea Morgan MD Nausea with vomiting Diarrhea 787.91 [...] of hip region Diarrhea, acute 787.91 Active Harnider Hernandez DO Diarrhea URI 465.9 Active Harinder [...] then one daily for three days PREDNISONE 88903861479 No Longer Active Harinder W David DO Active PREDNISONE 20 MG TAB 1 tablet twice daily for 2 days, then 1 tablet once daily for 2 days PREDNISONE 25178174988 No Longer Active Harinder Hernandez DO Active ASMANEX 120 METERED DOSES 220 MCG/INH INH AEPB 2 puffs orally twice daily MOMETASONE FUROATE 02166145864 Active Jeri Sosa RPT,RMA Active NIFEDIPINE ER 30 MG ORAL [id number] 1 daily NIFEDIPINE 73975830901 Active Tawnya Pardo MA Active TOPIRAMATE 25 MG TABS 1 tab po BID TOPIRAMATE 02713722609 No Longer Active Nettie Newberry APRN Active AMLODIPINE BESYLATE 5 MG ORAL TABS Take 1 tab po daily AMLODIPINE BESYLATE 56898730859 No Longer Active Nettie Newberry APRN Active MECLIZINE HCL 25 MG TAB 1 tablet three times daily for 3 days, then 1/2 tab three times daily for 3 days. MECLIZINE HCL 68593291823 No Longer Active Nettie Newberry APRN Active AMITRIPTYLINE HCL 25 MG ORAL TABS 1 q hs prn AMITRIPTYLINE HCL 24343083271 No Longer Active Nettie Newberry APRN Active DILAUDID 2 MG ORAL TABS Take 1/2 tab po every 4 hours as needed for pain 2014 HYDROMORPHONE HCL 02818700932 No Longer Active Nettie Newberyr APRN Active CLOPIDOGREL BISULFATE 75 MG ORAL TABS 1 tab by mouth once daily CLOPIDOGREL BISULFATE 75762886830 Active Jeri Sosa RPT,RMA Active ATORVASTATIN CALCIUM 10 MG ORAL TABS 1 at bedtime ATORVASTATIN CALCIUM 51218681849 Active Jeri Sosa RPT,RMA Active LOVASTATIN 40 MG ORAL TABS Take 1 tab po every hs LOVASTATIN 21723792825 No Longer Active Harinder Hernandez DO Active PREDNISONE 20 MG TAB 2 tabs daily for 4 days, 1 tab daily for 4 days, 1/2 tab daily for 4 days PREDNISONE 99408504920 No Longer Active Harinder Hernandez DO Active LEVAQUIN 500 MG ORAL TABS Take 1 tab po daily x 8 days LEVOFLOXACIN 69677034774 No Longer Active Harinder Hernandez DO Active VENTOLIN HFA 108 (90 BASE) MCG/ACT AERS 2 -4 puffs four times a day PRN 2013 ALBUTEROL SULFATE 93023607343 No Longer Active Jeri Sosa RPT,RMA Active ACEBUTOLOL HCL 200 MG CAPS 1 cap in the morning and 2 caps in the evening ACEBUTOLOL HCL 07192191391 No Longer Active Harinder Hernandez DO Active CEFDINIR 300 MG ORAL CAPS take 1 cap po bid x 10 days CEFDINIR 45048380792 No Longer Active Harinder Hernandez DO Active LOVASTATIN 40 MG TABS 1 pill by mouth nightly for cholesterol LOVASTATIN 92047156074 No Longer Active Nettie Newberry APRN Active NITROSTAT 0.4 MG SUBL 1 tab under tongueas needed for chest pain ( may take 3 total, 5 min apart, then call 911) NITROGLYCERIN 20852688921 No Longer Active Nettie Newberry APRN Active POTASSIUM CHLORIDE CR 10 MEQ CPCR 1 capsule by mouth daily 02/14 POTASSIUM CHLORIDE 43546856347 No Longer Active Nettie Newberry APRN Active TESSALON PERLES 100 MG CAP 1 to 2 tablets by mouth 3 times daily as needed for cough BENZONATATE 00085161802 No Longer Active Nettie Newberry APRN Active THEOPHYLLINE ER 200 MG ORAL [id number] Take 1 tab every 12 hours THEOPHYLLINE 61290383396 Active Jeri Sosa RPT,RMA Active PREDNISONE 20 MG TAB 2 po qd x 5 days PREDNISONE 10703765387 No Longer Active Jae Morgan MD Active AZITHROMYCIN 250 MG TABS 2 po qd x 1 day, then 1 po qd x 4 days AZITHROMYCIN 78460967599 No Longer Active Jae Morgan MD Active PREDNISONE 20 MG TAB 1 tab twice daily for 3 day, then one daily for three days PREDNISONE 45073026187 No Longer Active Jae Morgan MD Active SINGULAIR 10 MG TABS 1 pill by mouth every evening for breathing. MONTELUKAST SODIUM 73348022371 Active Tawnya Pardo MA Active TYLENOL 325 MG TAB 3 by mouth q4h as needed ACETAMINOPHEN 30493628282 Active Harinder Hernandez DO Active POTASSIUM CHLORIDE ER 10 MEQ CR-TABS take 1 tab po daily POTASSIUM CHLORIDE 91489077114 No Longer Active Harinder Hernandez DO Active PREDNISONE 20 MG TAB 1 TID x 2 days, then 1 BID x 3 days, then 1 Daily x 3 days, then stop PREDNISONE 67396564628 No Longer Active Jillina Frazell [employer] Active LEVAQUIN 500 MG TAB 1 tablet by mouth daily LEVOFLOXACIN 91322637106 No Longer Active Jillina Frazell [employer] Active NEURONTIN 300 MG CAP 1 cap by mouth three times daily for restless leg 06/22 GABAPENTIN 30070113714 No Longer Active Harinder Hernandez DO Active BENZONATATE 100 MG CAPS 1 cap po TID PRN BENZONATATE 44031133212 No Longer Active Harinder Hernandez DO Active MONTELUKAST SODIUM 10 MG TABS 1 tab po in the evening MONTELUKAST SODIUM 21515901998 No Longer Active Harinder Hernandez DO Active MUPIROCIN 2 % OINT apply to affected area BID x 14 days MUPIROCIN 03897430438 No Longer Active Harinder Hernandez DO Active TYLENOL EXTRA STRENGTH 500 MG TABS as needed ACETAMINOPHEN 67603786199 No Longer Active Harinder Hernandez DO Active PREDNISONE 10 MG TABS 1 tab po daily PREDNISONE 46237958583 No Longer Active Harinder Hernandez DO Active PREDNISONE 20 MG TAB 2 tabs daily for 4 days, 1 tab daily for 4 days, 1/2 tab daily for 4 days PREDNISONE 09690884641 No Longer Active Harinder Hernandez DO Active AZITHROMYCIN 250 MG TABS 2 po qd x 1 day, then 1 po qd x 4 days AZITHROMYCIN 19241281835 No Longer Active Harinder Hernandez DO Active PREDNISONE 20 MG TAB 3 tabs today, then 1 tab twice daily for 3 day, then one daily for three days PREDNISONE 07198029809 No Longer Active Harinder Hernandez DO Active NIFEDIAC CC 30 MG [id number] 1 tablet daily for raynaud's syndrome NIFEDIPINE 67342545558 No Longer Active Tawnya Pardo MA Active AMBIEN 10 MG TAB 1/2 tab by mouth at bedtime as needed for sleep ZOLPIDEM TARTRATE 83828794295 Active Harinder Hernandez DO Active CLONAZEPAM 1 MG TABS 1 tablet at bedtime for insomnia and restless legs 09/14 CLONAZEPAM 83101770374 Active Jeri Sosa RPT,RMA Active CLONAZEPAM 0.5 MG TABS 1 tab po daily CLONAZEPAM 02097706743 No Longer Active Harinder Hernandez DO Active PREDNISONE 10 MG TAB 1 tablet daily for COPD PREDNISONE 72511824438 Active Tawnya Pardo MA Active PROAIR HFA 108 (90 BASE) MCG/ACT AERS 2 puffs four times a day as needed 2012 ALBUTEROL SULFATE 01847742451 Active Tawnya Pardo MA Active FLOVENT HFA 110 MCG/ACT AERO 2 puffs inhaled b.i.d. FLUTICASONE PROPIONATE HFA 36492922068 Active Tawnya Pardo MA Active EPIPEN 0.3 MG/0.3ML URIEL DIRECTED EPINEPHRINE Active Jeri Sosa RPT,RMA Active ACIPHEX 20 MG TBEC 1 tab po daily RABEPRAZOLE SODIUM 57057824683 Active Tawnya Pardo MA Active CLONAZEPAM 0.5 MG TABS 1 tab po daily CLONAZEPAM 0.5 MG TABS 447547 CLONAZEPAM Inactive PREDNISONE 20 MG TAB 3 tabs today, then 1 tab twice daily for 3 day, then one daily for three days PREDNISONE 20 MG TAB 298319 PREDNISONE Inactive PREDNISONE 20 MG TAB 2 tabs daily for 4 days, 1 tab daily for 4 days, 1/2 tab daily for 4 days PREDNISONE 20 MG TAB 470115 PREDNISONE Inactive PREDNISONE 10 MG TABS 1 tab po daily PREDNISONE 10 MG TABS 625548 PREDNISONE Inactive TYLENOL EXTRA STRENGTH 500 MG TABS as needed TYLENOL EXTRA STRENGTH 500 MG TABS 005419 ACETAMINOPHEN Inactive MUPIROCIN 2 % OINT apply to affected area BID x 14 days MUPIROCIN 2 % OINT 943726 MUPIROCIN Inactive MONTELUKAST SODIUM 10 MG TABS 1 tab po in the evening MONTELUKAST SODIUM 10 MG TABS 886290 MONTELUKAST SODIUM Inactive BENZONATATE 100 MG CAPS 1 cap po TID PRN BENZONATATE 100 MG CAPS 916021 BENZONATATE Inactive NEURONTIN 300 MG CAP 1 cap by mouth three times daily for restless leg 06/22 NEURONTIN 300 MG CAP 403277 GABAPENTIN Inactive LEVAQUIN 500 MG TAB 1 tablet by mouth daily LEVAQUIN 500 MG TAB 706778 LEVOFLOXACIN Inactive PREDNISONE 20 MG TAB 1 TID x 2 days, then 1 BID x 3 days, then 1 Daily x 3 days, then stop PREDNISONE 20 MG TAB 135155 PREDNISONE Inactive POTASSIUM CHLORIDE ER 10 MEQ CR-TABS take 1 tab po daily POTASSIUM CHLORIDE ER 10 MEQ CR-TABS POTASSIUM CHLORIDE Inactive PREDNISONE 20 MG TAB 1 tab twice daily for 3 day, then one daily for three days PREDNISONE 20 MG TAB 257782 PREDNISONE Inactive TESSALON PERLES 100 MG CAP 1 to 2 tablets by mouth 3 times daily as needed for cough TESSALON PERLES 100 MG CAP 589568 BENZONATATE Inactive POTASSIUM CHLORIDE CR 10 MEQ [...] nightly for cholesterol LOVASTATIN 40 MG TABS 856346 LOVASTATIN Inactive CEFDINIR 300 MG ORAL CAPS take 1 cap po bid x 10 days CEFDINIR 300 MG ORAL CAPS 339412 CEFDINIR Inactive ACEBUTOLOL HCL 200 MG CAPS 1 cap in the morning and 2 caps in the evening ACEBUTOLOL HCL 200 MG CAPS 288957 ACEBUTOLOL HCL Inactive VENTOLIN HFA 108 (90 BASE) MCG/ACT AERS 2 -4 puffs four times a day PRN 2013 VENTOLIN HFA 108 (90 BASE) MCG/ACT AERS ALBUTEROL SULFATE Inactive LEVAQUIN 500 MG ORAL TABS Take 1 tab po daily x 8 days LEVAQUIN 500 MG ORAL TABS 037756 LEVOFLOXACIN Inactive PREDNISONE 20 MG TAB 2 tabs daily for 4 days, 1 tab daily for 4 days, 1/2 tab daily for 4 days PREDNISONE 20 MG TAB 270861 PREDNISONE Inactive LOVASTATIN 40 MG ORAL TABS Take 1 tab po every hs LOVASTATIN 40 MG ORAL TABS 681601 LOVASTATIN Inactive DILAUDID 2 MG ORAL TABS Take 1/2 tab po every 4 hours as needed for pain 2014 DILAUDID 2 MG ORAL TABS 631660 HYDROMORPHONE HCL Inactive AMITRIPTYLINE HCL 25 MG ORAL TABS 1 q hs prn AMITRIPTYLINE HCL 25 MG ORAL TABS 346155 AMITRIPTYLINE HCL Inactive MECLIZINE HCL 25 MG TAB 1 tablet three times daily for 3 days, then 1/2 tab three times daily for 3 days. MECLIZINE HCL 25 MG TAB 819201 MECLIZINE HCL Inactive AMLODIPINE BESYLATE 5 MG ORAL TABS Take 1 tab po daily AMLODIPINE BESYLATE 5 MG ORAL TABS 854906 AMLODIPINE BESYLATE Inactive TOPIRAMATE 25 MG TABS 1 tab po BID TOPIRAMATE 25 MG TABS 124709 TOPIRAMATE Inactive PREDNISONE 20 MG TAB 1 tablet twice daily for 2 days, then 1 tablet once daily for 2 days PREDNISONE 20 MG TAB 886201 PREDNISONE Inactive PREDNISONE 20 MG TAB 1 tab twice daily for 3 day, then one daily for three days PREDNISONE 20 MG TAB 588751 PREDNISONE Inactive AZITHROMYCIN 250 MG TABS 2 po qd x 1 day, then 1 po qd x 4 days AZITHROMYCIN 250 MG TABS 6812905 AZITHROMYCIN Inactive AZITHROMYCIN 250 MG TABS 2 po qd x 1 day, then 1 po qd x 4 days AZITHROMYCIN 250 MG TABS 2829824 AZITHROMYCIN Inactive PREDNISONE 20 MG TAB 2 po qd x 5 days PREDNISONE 20 MG TAB 451843 PREDNISONE Inactive Vital Signs Date Name Value [...] Panel - Chemistry sodium, serum 138 mmol/L 362-501 2457/09/24 potassium, serum 3.5 mmol/L 3.5-5.2 chloride, serum [...] Magnesium - Chemistry cholesterol, serum 180 mg/dL 746-687 8544/08/08 triglyceride, serum, fasting 92 mg/dL 30-200 HDL cholesterol, serum 66 mg/dL 32-96 LDL cholesterol, serum 96 mg/dL 0-130 sodium, serum 142 mmol/L 057-238 0902/08/08 carbon dioxide, venous blood 27.4 mmol/L 21.0-32.0 [...] 10.0-20.0 Encounters Code Encounter Date Provider Facility CPT-33979 Level 3 Est. Patient 09:58:58 CDT Harinder Hernandez [facility] CPT-59196 Level 3 Est. Patient 12:37:21 CDT Harinder Hernandez [facility] CPT-38496 Level 3 Est. Patient 18:37:17 CDT Harinder Hernandez [facility] CPT-92372 Level 4 Est. Patient 11:15:54 CDT Nettie Newberry APRN [facility] CPT-75515 Level 3 Est. Patient 16:42:24 CDT Harinder Hernandez [facility] CPT-73833 Level 3 Est. Patient 15:03:36 CDT Harinder Hernandez [facility] CPT-22882 Level 3 Est. Patient 15:03:20 CDT Harinder Hernandez [facility] CPT-40606 Level 3 Est. Patient 12:14:34 CDT Harinder Shaye [facility] CPT-86486 Level 3 Est. Patient 13:47:15 CDT Harinder Hernandez [facility] CPT-58701 Level 3 Est. Patient 14:08:24 CDT Harinder Hernandez [facility] CPT-12043 Level 3 Est. Patient 10:07:15 CDT Harinder Hernandez [facility] CPT-58875 Level 3 Est. Patient 10:06:59 CDT Harinder Hernandez [facility] CPT-54704 Level 3 Est. Patient 15:53:29 CDT Jae Morgan MD [facility] CPT-89827 Level 3 Est. Patient 17:19:04 CDT Harinder Shaye [facility] CPT-96743 Level 3 Est. Patient 11:13:01 CDT Harinder Cr [facility] CPT-25111 Level 3 Est. Patient 09:03:58 CDT Harinder Hernandez [facility] CPT-46987 Level 3 Est. Patient 14:46:45 ANIMAL STUNNER Harinder Hernandez [facility] CPT-63037 Level 3 Est. Patient 09:35:49 ANIMAL STUNNER Harinder Hernandez [facility] CPT-50733 Level 3 Est. Patient 09:29:37 ANIMAL STUNNER Harinder Hernandez [facility] CPT-34355 Level 3 Est. Patient 15:51:07 CDT Harinder Hernandez [facility] CPT-17310 Level 3 Est. Patient 18:13:13 CDT Harinder Hernandez [facility] CPT-17045 Level 3 Est. Patient 10:44:19 CDT Harinder Hernandez [facility] CPT-21912 Level 4 Est. Patient 10:07:19 ANIMAL STUNNER Harinder Cr [facility] CPT-64114 Level 3 Est. Patient 15:59:32 ANIMAL STUNNER Harinder Cr [facility] Procedures Code Procedure Name Date Entry Date Standard Description CPT-32858 No Charge Offi Visit 14:11:29 CDT CPT-84375 Magnesium - LAB USE ONLY 10:45:44 CDT CPT-23250 Lipid - LAB USE ONLY 10:45:44 CDT CPT-31300 CBC - LAB USE ONLY 10:45:44 CDT CPT-47239 Venipuncture Draw Fee 10:45:43 CDT CPT-26506 Venipuncture Draw Fee 18:21:27 CDT CPT-JTINJ Asp/Joint Injection 18:38:04 CDT CPT-50331 Immunization Each Additional Inj 17:38:04 CDT CPT-01538 Immunization Single Admin 17:38:04 CDT CPT-19101 Prevnar 13 17:38:04 CDT CPT-23659 Fluzone Quadrivalent preservative free (>=3yrs.) 17:38: 04 CDT CPT-93456 No Charge Offi Visit 11:14:03 CDT CPT-23321 Chest 2V Frontal and Lat 14:00:18 CDT CPT-OV Office Visit 16:10:28 CDT CPT-JTINJ Asp/Joint Injection 09:03:57 CDT CPT-Cryo Cryotherapy 09:35:49 ANIMAL STUNNER CPT-JTINJ Asp/Joint Injection 09:34:45 ANIMAL STUNNER CPT-J2930 Solu Medrol 125 mg (Methyl Prednisolone Sodium Succinate) 20:37:27 CDT CPT-45816 Abx/Therapy Injection 20:37:27 CDT CPT-80565 Port a cath flush 08:15:51 CDT CPT-13175 Port a cath flush 09:54:16 CDT CPT-19059 Port a cath flush 09:38:02 CDT CPT-27299 Port a cath flush 11:00:27 ANIMAL STUNNER
--- OUTSIDE RECORDS SUMMARY | 2017-12-29 03:49 | XMS REPORT | Clinical Summary ---
Author Author Admin, QIE Organization [facility] Amina Address Unknown Phone Unavailable Allergies, Adverse Reactions, [...] Patient Instruction NIFEDIPINE ER 30 MG ORAL [id number] 1 daily NIFEDIPINE [id number] Active Nettie Newberry APRN Active TOPIRAMATE 25 MG TABS 1 tab po BID TOPIRAMATE 06261672738 No Longer Active Nettie Newberry APRN Active AMLODIPINE BESYLATE 5 MG ORAL TABS Take 1 tab po daily AMLODIPINE BESYLATE 51998076444 No Longer Active Nettie Newberry APRN Active MECLIZINE HCL 25 MG TAB 1 tablet three times daily for 3 days, then 1/2 tab three times daily for 3 days. MECLIZINE HCL 11871153010 No Longer Active Nettie Newberry APRN Active AMITRIPTYLINE HCL 25 MG ORAL TABS 1 q hs prn AMITRIPTYLINE HCL 37273622211 No Longer Active Nettie Newberry MAHENDRA Active DILAUDID 2 MG ORAL TABS Take 1/2 tab po every 4 hours as needed for pain 2014 HYDROMORPHONE HCL 83795863159 No Longer Active Nettie Newberry MAHENDRA Active CLOPIDOGREL BISULFATE 75 MG ORAL TABS 1 tab by mouth once daily CLOPIDOGREL BISULFATE 13342600997 Active Harinder Hernandez DO Active ATORVASTATIN CALCIUM 10 MG ORAL TABS 1 at bedtime ATORVASTATIN CALCIUM 80387097581 Active Harinder Hernandez DO Active LOVASTATIN 40 MG ORAL TABS Take 1 tab po every hs LOVASTATIN 33153263096 No Longer Active Harinder Hernandez DO Active PREDNISONE 20 MG TAB 2 tabs daily for 4 days, 1 tab daily for 4 days, 1/2 tab daily for 4 days PREDNISONE 94427062133 No Longer Active Harinder Hernandez DO Active LEVAQUIN 500 MG ORAL TABS Take 1 tab po daily x 8 days LEVOFLOXACIN 22601464676 No Longer Active Harinder Hernandez DO Active VENTOLIN HFA 108 (90 BASE) MCG/ACT AERS 2 -4 puffs four times a day PRN 2013 ALBUTEROL SULFATE 12689673046 No Longer Active Jeri Sosa RPT,RMA Active ACEBUTOLOL HCL 200 MG CAPS 1 cap in the morning and 2 caps in the evening ACEBUTOLOL HCL 20607611133 No Longer Active Harinder Hernandez DO Active CEFDINIR 300 MG ORAL CAPS take 1 cap po bid x 10 days CEFDINIR 94598794521 No Longer Active Harinder Hernandez DO Active LOVASTATIN 40 MG TABS 1 pill by mouth nightly for cholesterol LOVASTATIN 16125983440 No Longer Active Nettie Newberry APRN Active NITROSTAT 0.4 MG SUBL 1 tab under tongueas needed for chest pain ( may take 3 total, 5 min apart, then call 911) NITROGLYCERIN 95281726242 No Longer Active Nettieog Newberry APRN Active POTASSIUM CHLORIDE CR 10 MEQ CPCR 1 capsule by mouth daily 02/14 POTASSIUM CHLORIDE 47769452042 No Longer Active Nettie King MAHENDRA Active TESSALON PERLES 100 MG CAP 1 to 2 tablets by mouth 3 times daily as needed for cough BENZONATATE 64025323715 No Longer Active Nettieog Newberry APRN Active THEOPHYLLINE ER 200 MG ORAL [id number] Take 1 tab every 12 hours THEOPHYLLINE 57668082283 Active Tawnya Pardo MA Active PREDNISONE 20 MG TAB 2 po qd x 5 days PREDNISONE 57865196533 No Longer Active Jae Morgan MD Active AZITHROMYCIN 250 MG TABS 2 po qd x 1 day, then 1 po qd x 4 days AZITHROMYCIN 33001389549 No Longer Active Jae Morgan MD Active PREDNISONE 20 MG TAB 1 tab twice daily for 3 day, then one daily for three days PREDNISONE 83741678725 No Longer Active Jae Morgan MD Active SINGULAIR 10 MG TABS 1 pill by mouth every evening for breathing. MONTELUKAST SODIUM 50223418230 Active Tawnya Pardo MA Active TYLENOL 325 MG TAB 3 by mouth q4h as needed ACETAMINOPHEN 45458590098 Active Harinder Hernandez DO Active POTASSIUM CHLORIDE ER 10 MEQ CR-TABS take 1 tab po daily POTASSIUM CHLORIDE 95833238221 No Longer Active Harinder Hernandez DO Active PREDNISONE 20 MG TAB 1 TID x 2 days, then 1 BID x 3 days, then 1 Daily x 3 days, then stop PREDNISONE 46635110067 No Longer Active Jillina Frazellor MCCRAY Active LEVAQUIN 500 MG TAB 1 tablet by mouth daily LEVOFLOXACIN 93800313792 No Longer Active Jillina Frazell MAHENDRA Active NEURONTIN 300 MG CAP 1 cap by mouth three times daily for restless leg 06/22 GABAPENTIN 52057597719 No Longer Active Harinder Hernandez DO Active BENZONATATE 100 MG CAPS 1 cap po TID PRN BENZONATATE 82007276566 No Longer Active Harinder Hernandez DO Active MONTELUKAST SODIUM 10 MG TABS 1 tab po in the evening MONTELUKAST SODIUM 36190394053 No Longer Active Harinder Hernandez DO Active MUPIROCIN 2 % OINT apply to affected area BID x 14 days MUPIROCIN 28208733730 No Longer Active Harinder Hernandez DO Active TYLENOL EXTRA STRENGTH 500 MG TABS as needed ACETAMINOPHEN 67012167408 No Longer Active Harinder Hernandez DO Active PREDNISONE 10 MG TABS 1 tab po daily PREDNISONE 55340845865 No Longer Active Harinder Hernandez DO Active PREDNISONE 20 MG TAB 2 tabs daily for 4 days, 1 tab daily for 4 days, 1/2 tab daily for 4 days PREDNISONE 43399855965 No Longer Active Harinder Hernandez DO Active AZITHROMYCIN 250 MG TABS 2 po qd x 1 day, then 1 po qd x 4 days AZITHROMYCIN 19023349172 No Longer Active Harinder Hernandez DO Active PREDNISONE 20 MG TAB 3 tabs today, then 1 tab twice daily for 3 day, then one daily for three days PREDNISONE 15709666495 No Longer Active Harinder Hernandez DO Active NIFEDIAC CC 30 MG [id number] 1 tablet daily for raynaud's syndrome NIFEDIPINE 48340901913 No Longer Active Tawnya Pardo MA Active AMBIEN 10 MG TAB 1/2 tab by mouth at bedtime as needed for sleep ZOLPIDEM TARTRATE 89413268234 Active Harinder Hernandez DO Active CLONAZEPAM 1 MG TABS 1 tablet at bedtime for insomnia and restless legs 09/14 CLONAZEPAM 10523875320 Active Harinder Hernandez DO Active CLONAZEPAM 0.5 MG TABS 1 tab po daily CLONAZEPAM 98279741563 No Longer Active Harinder Hernandez DO Active PREDNISONE 10 MG TAB 1 tablet daily for COPD PREDNISONE 13660196083 Active Tawnya Pardo MA Active PROAIR HFA 108 (90 BASE) MCG/ACT AERS 2 puffs four times a day as needed 2012 ALBUTEROL SULFATE 37081032994 Active Tawnya Pardo MA Active FLOVENT HFA 110 MCG/ACT AERO 2 puffs inhaled b.i.d. FLUTICASONE PROPIONATE HFA 57672636963 Active Tawnya Pardo MA Active EPIPEN 0.3 MG/0.3ML URIEL DIRECTED EPINEPHRINE Active Demetrius JOHNSON Active ACIPHEX 20 MG TBEC 1 tab po daily RABEPRAZOLE SODIUM 49214639643 Active Tawnya Pardo MA Active CLONAZEPAM 0.5 MG TABS 1 tab po daily CLONAZEPAM 0.5 MG TABS 779992 CLONAZEPAM Inactive PREDNISONE 20 MG TAB 3 tabs today, then 1 tab twice daily for 3 day, then one daily for three days PREDNISONE 20 MG TAB 099036 PREDNISONE Inactive PREDNISONE 20 MG TAB 2 tabs daily for 4 days, 1 tab daily for 4 days, 1/2 tab daily for 4 days PREDNISONE 20 MG TAB 200832 PREDNISONE Inactive PREDNISONE 10 MG TABS 1 tab po daily PREDNISONE 10 MG TABS 604565 PREDNISONE Inactive TYLENOL EXTRA STRENGTH 500 MG TABS as needed TYLENOL EXTRA STRENGTH 500 MG TABS 821397 ACETAMINOPHEN Inactive MUPIROCIN 2 % OINT apply to affected area BID x 14 days MUPIROCIN 2 % OINT 307606 MUPIROCIN Inactive MONTELUKAST SODIUM 10 MG TABS 1 tab po in the evening MONTELUKAST SODIUM 10 MG TABS 20010818 MONTELUKAST SODIUM Inactive BENZONATATE 100 MG CAPS 1 cap po TID PRN BENZONATATE 100 MG CAPS 19730321 BENZONATATE Inactive NEURONTIN 300 MG CAP 1 cap by mouth three times daily for restless leg 06/22 NEURONTIN 300 MG CAP 053876 GABAPENTIN Inactive LEVAQUIN 500 MG TAB 1 tablet by mouth daily LEVAQUIN 500 MG TAB 258023 LEVOFLOXACIN Inactive PREDNISONE 20 MG TAB 1 TID x 2 days, then 1 BID x 3 days, then 1 Daily x 3 days, then stop PREDNISONE 20 MG TAB 240363 PREDNISONE Inactive POTASSIUM CHLORIDE ER 10 MEQ CR-TABS take 1 tab po daily POTASSIUM CHLORIDE ER 10 MEQ CR-TABS POTASSIUM CHLORIDE Inactive PREDNISONE 20 MG TAB 1 tab twice daily for 3 day, then one daily for three days PREDNISONE 20 MG TAB 648631 PREDNISONE Inactive TESSALON PERLES 100 MG CAP 1 to 2 tablets by mouth 3 times daily as needed for cough TESSALON PERLES 100 MG CAP 205984 BENZONATATE Inactive POTASSIUM CHLORIDE CR 10 MEQ [...] nightly for cholesterol LOVASTATIN 40 MG TABS 951400 LOVASTATIN Inactive CEFDINIR 300 MG ORAL CAPS take 1 cap po bid x 10 days CEFDINIR 300 MG ORAL CAPS 468300 CEFDINIR Inactive ACEBUTOLOL HCL 200 MG CAPS 1 cap in the morning and 2 caps in the evening ACEBUTOLOL HCL 200 MG CAPS 278177 ACEBUTOLOL HCL Inactive VENTOLIN HFA 108 (90 BASE) MCG/ACT AERS 2 -4 puffs four times a day PRN 2013 VENTOLIN HFA 108 (90 BASE) MCG/ACT AERS ALBUTEROL SULFATE Inactive LEVAQUIN 500 MG ORAL TABS Take 1 tab po daily x 8 days LEVAQUIN 500 MG ORAL TABS 938425 LEVOFLOXACIN Inactive PREDNISONE 20 MG TAB 2 tabs daily for 4 days, 1 tab daily for 4 days, 1/2 tab daily for 4 days PREDNISONE 20 MG TAB 808413 PREDNISONE Inactive LOVASTATIN 40 MG ORAL TABS Take 1 tab po every hs LOVASTATIN 40 MG ORAL TABS 009781 LOVASTATIN Inactive DILAUDID 2 MG ORAL TABS Take 1/2 tab po every 4 hours as needed for pain 2014 DILAUDID 2 MG ORAL TABS 057103 HYDROMORPHONE HCL Inactive AMITRIPTYLINE HCL 25 MG ORAL TABS 1 q hs prn AMITRIPTYLINE HCL 25 MG ORAL TABS 234864 AMITRIPTYLINE HCL Inactive MECLIZINE HCL 25 MG TAB 1 tablet three times daily for 3 days, then 1/2 tab three times daily for 3 days. MECLIZINE HCL 25 MG TAB 736960 MECLIZINE HCL Inactive AMLODIPINE BESYLATE 5 MG ORAL TABS Take 1 tab po daily AMLODIPINE BESYLATE 5 MG ORAL TABS 706027 AMLODIPINE BESYLATE Inactive TOPIRAMATE 25 MG TABS 1 tab po BID TOPIRAMATE 25 MG TABS 144708 TOPIRAMATE Inactive AZITHROMYCIN 250 MG TABS 2 po qd x 1 day, then 1 po qd x 4 days AZITHROMYCIN 250 MG TABS 8083964 AZITHROMYCIN Inactive AZITHROMYCIN 250 MG TABS 2 po qd x 1 day, then 1 po qd x 4 days AZITHROMYCIN 250 MG TABS 8795831 AZITHROMYCIN Inactive PREDNISONE 20 MG TAB 2 po qd x 5 days PREDNISONE 20 MG TAB 823251 PREDNISONE Inactive Vital Signs Date Name Value [...] Panel - Chemistry sodium, serum 138 mmol/L 967-056 4581/09/24 potassium, serum 3.5 mmol/L 3.5-5.2 chloride, serum [...] [phone] Encounters Code Encounter Date Provider Facility CPT-59467 Level 4 Est. Patient 11:15:54 CDT Nettie Newberry APRN [facility] CPT-07887 Level 3 Est. Patient 16:42:24 CDT Harinder Cr [facility] CPT-02222 Level 3 Est. Patient 15:03:36 CDT Harinder Hernandez [facility] CPT-71545 Level 3 Est. Patient 15:03:20 CDT Harinder Cr [facility] CPT-20559 Level 3 Est. Patient 12:14:34 CDT Harinder Hernandez [facility] CPT-82386 Level 3 Est. Patient 13:47:15 CDT Harinder Cr [facility] CPT-59778 Level 3 Est. Patient 14:08:24 CDT Harinder Hernandez [facility] CPT-48358 Level 3 Est. Patient 10:07:15 CDT Harinder Cr [facility] CPT-00616 Level 3 Est. Patient 10:06:59 CDT Harinder Hernandez [facility] CPT-36637 Level 3 Est. Patient 15:53:29 CDT Jae Morgan MD [facility] CPT-13602 Level 3 Est. Patient 17:19:04 CDT Harinder Hernandez [facility] CPT-41230 Level 3 Est. Patient 11:13:01 CDT Harinder Hernandez [facility] CPT-08467 Level 3 Est. Patient 09:03:58 CDT Harinder Hernandez [facility] CPT-97313 Level 3 Est. Patient 14:46:45 SPARE PARTS CLERK Harinder Hernandez [facility] CPT-19291 Level 3 Est. Patient 09:35:49 SPARE PARTS CLERK Harinder Hernandez [facility] CPT-98866 Level 3 Est. Patient 09:29:37 SPARE PARTS CLERK Harinder Hernandez [facility] CPT-37537 Level 3 Est. Patient 15:51:07 CDT Harinder Hernandez [facility] CPT-71837 Level 3 Est. Patient 18:13:13 CDT Harinder Hernandez [facility] CPT-90035 Level 3 Est. Patient 10:44:19 CDT Harinder Hernandez [facility] CPT-29235 Level 4 Est. Patient 10:07:19 SPARE PARTS CLERK Harinder Hernandez [facility] CPT-26355 Level 3 Est. Patient 15:59:32 SPARE PARTS CLERK Harinder Cr [facility] Procedures Code Procedure Name Date Entry Date Standard Description CPT-64669 Immunization Each Additional Inj 17:38:04 CDT CPT-76715 Immunization Single Admin 17:38:04 CDT CPT-15200 Prevnar 13 17:38:04 CDT CPT-77447 Fluzone Quadrivalent preservative free (>=3yrs.) 17:38: 04 CDT CPT-99827 No Charge Offi Visit 11:14:03 CDT CPT-76192 Chest 2V Frontal and Lat 14:00:18 CDT CPT-OV Office Visit 16:10:28 CDT CPT-JTINJ Asp/Joint Injection 09:03:57 CDT CPT-Cryo Cryotherapy 09:35:49 SPARE PARTS CLERK CPT-JTINJ Asp/Joint Injection 09:34:45 SPARE PARTS CLERK CPT-J2930 Solu Medrol 125 mg (Methyl Prednisolone Sodium Succinate) 20:37:27 CDT CPT-80561 Abx/Therapy Injection 20:37:27 CDT CPT-29365 Port a cath flush 08:15:51 CDT CPT-14534 Port a cath flush 09:54:16 CDT CPT-68980 Port a cath flush 09:38:02 CDT CPT-97166 Port a cath flush 11:00:27 SPARE PARTS CLERK
--- OUTSIDE RECORDS SUMMARY | 2017-12-29 03:51 | XMS REPORT | Clinical Summary ---
Author Author Admin, QIE Organization [facility] ePrep Address Unknown Phone Unavailable Allergies, Adverse Reactions, [...] Sosa Scribe Edema Tendonitis 726.90 Active Harinder Hrenandez DO Enthesopathy of unspecified site Anxiety depression [...] Active Jeri Nieto Other malaise and fatigue Encounter for fitting and adjustment of vascular [...] Pneumococcus) ICD-V03.82 Inactive Harinder W David DO Breast mass, right ICD-611.72 Inactive Harinder W David DO Greater trochanteric [...] TABLET 1 tablet by mouth daily SPIRONOLACTONE 74508810739 No Longer Active Jeri Nieto Active PREDNISONE 20 MG ORAL TABLET 2 tablets by mouth today, then 1 tablet by mouth days 2-3 PREDNISONE 86892071680 No Longer Active Jeri Nieto Active NITROSTAT 0.4 MG SUBLINGUAL TABLET SUBLINGUAL 1 tab SL q5min PRN chest pain NITROGLYCERIN 63212911819 Active Meenu Alejo LPN Active THEOPHYLLINE ER 300 MG ORAL TABLET EXTENDED RELEASE 12 HOUR 1 po BID THEOPHYLLINE 99352088699 Active Kortney Mccain Active POTASSIUM CHLORIDE ER 20 MEQ ORAL TABLET EXTENDED RELEASE 1 po q day POTASSIUM CHLORIDE 92066263920 Active Kortney Mccain Active POTASSIUM CHLORIDE 20 MEQ ORAL PACKET 1 tab po q day POTASSIUM CHLORIDE 28631410420 No Longer Active Kortney Mccain Active POTASSIUM CHLORIDE ER 10 MEQ ORAL CAPSULE EXTENDED RELEASE 1 capsule BID 2016 POTASSIUM CHLORIDE 74970832995 No Longer Active Kortney Mccain Active LASIX 20 MG ORAL TABLET 1 tablet by mouth every morning FUROSEMIDE 82047489547 No Longer Active Kortney Mccain Active FLUOXETINE HCL 10 MG ORAL CAPSULE 1 po qd for depression/anxiety FLUOXETINE HCL 60001197648 Active Meenu Alejo LPN Active VOLTAREN 1 % TRANSDERMAL GEL apply q 6-8 hour to left arm as needed for pain DICLOFENAC SODIUM 86090710544 Active Kortney Mccain Active ALBUTEROL SULFATE (2.5 MG/3ML) 0.083% INHALATION NEBULIZATION SOLUTION 1 vial neb q 4hrs for severe asthma. 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 NIFEDIPINE 55476314736 Active Kortney Mccain Active AMLODIPINE BESYLATE 5 MG ORAL TABLET 1 tablet by mouth daily 2016 AMLODIPINE BESYLATE 88739449055 No Longer Active Harinder Hernandez DO Active TOPAMAX 25 MG ORAL TABLET 1 tab po BID TOPIRAMATE 14391733737 Active Kortney Mccain Active FLUTICASONE PROPIONATE 50 MCG/ACT NASAL SUSPENSION 2 sprays per nostril daily PRN Allergies FLUTICASONE PROPIONATE 33959702881 Active Meenu Alejo LPN Active NIFEDIPINE ER 30 MG ORAL TABLET EXTENDED RELEASE 24 HOUR 1 daily NIFEDIPINE 35068049914 No Longer Active Harinder Hernandez DO Active FLOVENT HFA 110 MCG/ACT INHALATION AEROSOL 2 puffs inhaled b.i.d. FLUTICASONE PROPIONATE HFA 75282813380 Active Harinder Hernandez DO Active EPIPEN 2-BRUNA 0.3 MG/0.3ML INJECTION SOLUTION AUTO-INJECTOR 1 INJ NEEDED EPINEPHRINE 29811334780 Active Meenu Alejo LPN Active PREDNISONE 20 MG ORAL TABLET 1 tab twice daily for 3 day, then one daily for three days PREDNISONE 77865628926 No Longer Active Harinder Hernandez DO Active PREDNISONE 20 MG ORAL TABLET 1 tablet twice daily for 2 days, then 1 tablet once daily for 2 days PREDNISONE 26310798790 No Longer Active Harinder Hernandez DO Active ASMANEX 120 METERED DOSES 220 MCG/INH INHALATION AEROSOL POWDER BREATH ACTIVATED 2 puffs orally twice daily MOMETASONE FUROATE 17729673786 Active Jeri Sosa LPN Active TOPIRAMATE 25 MG ORAL TABLET 1 tab po BID TOPIRAMATE 53785117756 No Longer Active Nettie Newberry MAHENDRA Active AMLODIPINE BESYLATE 5 MG ORAL TABLET Take 1 tab po daily AMLODIPINE BESYLATE 45511431298 No Longer Active Nettie Newberry MAHENDRA Active MECLIZINE HCL 25 MG ORAL TABLET 1 tablet three times daily for 3 days, then 1/ 2 tab three times daily for 3 days. MECLIZINE HCL 93537388209 No Longer Active Nettie King MAHENDRA Active AMITRIPTYLINE HCL 25 MG ORAL TABLET 1 q hs prn AMITRIPTYLINE HCL 12196529860 No Longer Active Nettie Newberry MAHENDRA Active DILAUDID 2 MG ORAL TABLET Take 1/2 tab po every 4 hours as needed for pain HYDROMORPHONE HCL 00619539822 No Longer Active Nettieog Newberry APRN Active CLOPIDOGREL BISULFATE 75 MG ORAL TABLET 1 tab by mouth once daily CLOPIDOGREL BISULFATE 47000119414 Active Meenu Alejo LPN Active ATORVASTATIN CALCIUM 10 MG ORAL TABLET 1 at bedtime ATORVASTATIN CALCIUM 57766498772 Active Kortney Mccain Active LOVASTATIN 40 MG ORAL TABLET Take 1 tab po every hs LOVASTATIN 84413401597 No Longer Active Harinder Hernandez DO Active PREDNISONE 20 MG ORAL TABLET 2 tabs daily for 4 days, 1 tab daily for 4 days, 1/2 tab daily for 4 days PREDNISONE 70977154322 No Longer Active Harinder Hernandez DO Active LEVAQUIN 500 MG ORAL TABLET Take 1 tab po daily x 8 days LEVOFLOXACIN 59416669088 No Longer Active Harinder Hernandez DO Active VENTOLIN HFA 108 (90 Base) MCG/ACT INHALATION AEROSOL SOLUTION 2 -4 puffs four times a day PRN ALBUTEROL SULFATE 19763777842 No Longer Active Jeri Sosa LPN Active ACEBUTOLOL HCL 200 MG ORAL CAPSULE 1 cap in the morning and 2 caps in the evening ACEBUTOLOL HCL 83905064028 No Longer Active Harinder Hernandez DO Active CEFDINIR 300 MG ORAL CAPSULE take 1 cap po bid x 10 days CEFDINIR 71203026498 No Longer Active Harinder Hernandez DO Active LOVASTATIN 40 MG ORAL TABLET 1 pill by mouth nightly for cholesterol LOVASTATIN 77558545527 No Longer Active Nettie Newberry APRN Active NITROSTAT 0.4 MG SUBLINGUAL TABLET SUBLINGUAL 1 tab under tongueas needed for chest pain ( may take 3 total, 5 min apart, then call 911) NITROGLYCERIN 73101339996 No Longer Active Nettie Newberry APRN Active POTASSIUM CHLORIDE ER 10 MEQ ORAL CAPSULE EXTENDED RELEASE 1 capsule by mouth daily POTASSIUM CHLORIDE 57759234224 No Longer Active Nettie Newberry APRN Active TESSALON PERLES 100 MG ORAL CAPSULE 1 to 2 tablets by mouth 3 times daily as needed for cough BENZONATATE 01189612800 No Longer Active Nettie Newberry APRN Active PREDNISONE 20 MG ORAL TABLET 2 po qd x 5 days PREDNISONE 72285465527 No Longer Active Jae Morgan MD Active AZITHROMYCIN 250 MG ORAL TABLET 2 po qd x 1 day, then 1 po qd x 4 days 12/30 AZITHROMYCIN 62501096841 No Longer Active Jae Morgan MD Active PREDNISONE 20 MG ORAL TABLET 1 tab twice daily for 3 day, then one daily for three days PREDNISONE 98605293186 No Longer Active Jae Morgan MD Active SINGULAIR 10 MG ORAL TABLET 1 pill by mouth every evening for breathing. 2014 MONTELUKAST SODIUM 99497211410 Active Meenu Alejo LPN Active TYLENOL 325 MG ORAL TABLET 3 by mouth q4h as needed ACETAMINOPHEN 69464342469 Active Harinder Hernandez DO Active POTASSIUM CHLORIDE ER 10 MEQ ORAL TABLET EXTENDED RELEASE take 1 tab po daily POTASSIUM CHLORIDE 62843714270 No Longer Active Harinder Hernandez DO Active PREDNISONE 20 MG ORAL TABLET 1 TID x 2 days, then 1 BID x 3 days, then 1 Daily x 3 days, then stop PREDNISONE 81656221492 No Longer Active Jialec Montemayor APRN Active LEVAQUIN 500 MG ORAL TABLET 1 tablet by mouth daily LEVOFLOXACIN 79039847530 No Longer Active Jillina Frazell WELDING ROBOT OPERATOR Active NEURONTIN 300 MG ORAL CAPSULE 1 cap by mouth three times daily for restless leg GABAPENTIN 22137390554 No Longer Active Harinder Hernandez DO Active BENZONATATE 100 MG ORAL CAPSULE 1 cap po TID PRN BENZONATATE 76058220431 No Longer Active Harinder Hernandez DO Active MONTELUKAST SODIUM 10 MG ORAL TABLET 1 tab po in the evening 2014 MONTELUKAST SODIUM 53084526583 No Longer Active Harinder Hernandez DO Active MUPIROCIN 2 % EXTERNAL OINTMENT apply to affected area BID x 14 days MUPIROCIN 41342365540 No Longer Active Harinder Hernandez DO Active TYLENOL EXTRA STRENGTH 500 MG ORAL TABLET as needed ACETAMINOPHEN 71473609079 No Longer Active Harinder Hernandez DO Active PREDNISONE 10 MG ORAL TABLET 1 tab po daily PREDNISONE 75177094303 No Longer Active Harinder Hernandez DO Active PREDNISONE 20 MG ORAL TABLET 2 tabs daily for 4 days, 1 tab daily for 4 days, 1/2 tab daily for 4 days PREDNISONE 60185334167 No Longer Active Harinder Hernandez DO Active AZITHROMYCIN 250 MG ORAL TABLET 2 po qd x 1 day, then 1 po qd x 4 days 04/06 AZITHROMYCIN 18368989611 No Longer Active Harinder Hernandez DO Active PREDNISONE 20 MG ORAL TABLET 3 tabs today, then 1 tab twice daily for 3 day, then one daily for three days PREDNISONE 75451227050 No Longer Active Harinder Hernandez DO Active NIFEDIAC CC 30 MG ORAL TABLET EXTENDED RELEASE 24 HOUR 1 tablet daily for raynaud's syndrome NIFEDIPINE 42005138603 No Longer Active Tawnya Pardo MA Active AMBIEN 10 MG ORAL TABLET 1/2 tab by mouth at bedtime as needed for sleep 2013 ZOLPIDEM TARTRATE 01616820412 Active Meenu Alejo LPN Active CLONAZEPAM 1 MG ORAL TABLET 1 tablet at bedtime for insomnia and restless legs CLONAZEPAM 61529938787 Active Meenu Alejo LPN Active CLONAZEPAM 0.5 MG ORAL TABLET 1 tab po daily CLONAZEPAM 38672750142 No Longer Active Harinder Hernandez DO Active PREDNISONE 10 MG ORAL TABLET 1 tablet daily for COPD PREDNISONE 40268830566 Active Kortney Mccain Active PROAIR HFA 108 (90 Base) MCG/ACT INHALATION AEROSOL SOLUTION 2 puffs four times a day as needed ALBUTEROL SULFATE 59156888734 Active Harinder Hernandez DO Active FLOVENT HFA 110 MCG/ACT INHALATION AEROSOL 2 puffs inhaled b.i.d. FLUTICASONE PROPIONATE HFA 03497442051 Active Kortney Mccain Active ACIPHEX 20 MG ORAL TABLET DELAYED RELEASE 1 tab po daily RABEPRAZOLE SODIUM 74681409770 Active Meenu Alejo LPN Active CLONAZEPAM 0.5 MG ORAL TABLET 1 tab po daily CLONAZEPAM 0.5 MG ORAL TABLET 860645 CLONAZEPAM Inactive PREDNISONE 20 MG ORAL TABLET 3 tabs today, then 1 tab twice daily for 3 day, then one daily for three days PREDNISONE 20 MG ORAL TABLET 507257 PREDNISONE Inactive PREDNISONE 20 MG ORAL TABLET 2 tabs daily for 4 days, 1 tab daily for 4 days, 1/2 tab daily for 4 days PREDNISONE 20 MG ORAL TABLET 194565 PREDNISONE Inactive PREDNISONE 10 MG ORAL TABLET 1 tab po daily PREDNISONE 10 MG ORAL TABLET 906586 PREDNISONE Inactive TYLENOL EXTRA STRENGTH 500 MG ORAL TABLET as needed TYLENOL EXTRA STRENGTH 500 MG ORAL TABLET 495633 ACETAMINOPHEN Inactive MUPIROCIN 2 % EXTERNAL OINTMENT apply to affected area BID x 14 days MUPIROCIN 2 % EXTERNAL OINTMENT 524419 MUPIROCIN Inactive MONTELUKAST SODIUM 10 MG ORAL TABLET 1 tab po in the evening 2014 MONTELUKAST SODIUM 10 MG ORAL TABLET 404668 MONTELUKAST SODIUM Inactive BENZONATATE 100 MG ORAL CAPSULE 1 cap po TID PRN BENZONATATE 100 MG ORAL CAPSULE 761706 BENZONATATE Inactive NEURONTIN 300 MG ORAL CAPSULE 1 cap by mouth three times daily for restless leg NEURONTIN 300 MG ORAL CAPSULE 340301 GABAPENTIN Inactive LEVAQUIN 500 MG ORAL TABLET 1 tablet by mouth daily LEVAQUIN 500 MG ORAL TABLET 342784 LEVOFLOXACIN Inactive PREDNISONE 20 MG ORAL TABLET 1 TID x 2 days, then 1 BID x 3 days, then 1 Daily x 3 days, then stop PREDNISONE 20 MG ORAL TABLET 534366 PREDNISONE Inactive POTASSIUM CHLORIDE ER 10 MEQ ORAL TABLET EXTENDED RELEASE take 1 tab po daily POTASSIUM CHLORIDE ER 10 MEQ ORAL TABLET EXTENDED RELEASE POTASSIUM CHLORIDE Inactive PREDNISONE 20 MG ORAL TABLET 1 tab twice daily for 3 day, then one daily for three days PREDNISONE 20 MG ORAL TABLET 197076 PREDNISONE Inactive TESSALON PERLES 100 MG ORAL CAPSULE 1 to 2 tablets by mouth 3 times daily as needed for cough TESSALON PERLES 100 MG ORAL CAPSULE 328544 BENZONATATE Inactive POTASSIUM CHLORIDE ER 10 MEQ ORAL CAPSULE EXTENDED RELEASE 1 capsule by mouth daily POTASSIUM CHLORIDE ER 10 MEQ ORAL CAPSULE EXTENDED RELEASE POTASSIUM CHLORIDE Inactive NITROSTAT 0.4 MG SUBLINGUAL TABLET SUBLINGUAL 1 tab under tongueas needed for chest pain ( may take 3 total, 5 min apart, then call 911) NITROSTAT 0.4 MG SUBLINGUAL TABLET SUBLINGUAL 800192 NITROGLYCERIN Inactive LOVASTATIN 40 MG ORAL TABLET 1 pill by mouth nightly for cholesterol LOVASTATIN 40 MG ORAL TABLET 157560 LOVASTATIN Inactive CEFDINIR 300 MG ORAL CAPSULE take 1 cap po bid x 10 days CEFDINIR 300 MG ORAL CAPSULE 336241 CEFDINIR Inactive ACEBUTOLOL HCL 200 MG ORAL CAPSULE 1 cap in the morning and 2 caps in the evening ACEBUTOLOL HCL 200 MG ORAL CAPSULE 340527 ACEBUTOLOL HCL Inactive VENTOLIN HFA 108 (90 Base) MCG/ACT INHALATION AEROSOL SOLUTION 2 -4 puffs four times a day PRN VENTOLIN HFA 108 (90 Base) MCG/ ACT INHALATION AEROSOL SOLUTION ALBUTEROL SULFATE Inactive LEVAQUIN 500 MG ORAL TABLET Take 1 tab po daily x 8 days LEVAQUIN 500 MG ORAL TABLET 798641 LEVOFLOXACIN Inactive PREDNISONE 20 MG ORAL TABLET 2 tabs daily for 4 days, 1 tab daily for 4 days, 1/2 tab daily for 4 days PREDNISONE 20 MG ORAL TABLET 017440 PREDNISONE Inactive LOVASTATIN 40 MG ORAL TABLET Take 1 tab po every hs LOVASTATIN 40 MG ORAL TABLET 296846 LOVASTATIN Inactive DILAUDID 2 MG ORAL TABLET Take 1/2 tab po every 4 hours as needed for pain DILAUDID 2 MG ORAL TABLET 207329 HYDROMORPHONE HCL Inactive AMITRIPTYLINE HCL 25 MG ORAL TABLET 1 q hs prn AMITRIPTYLINE HCL 25 MG ORAL TABLET 867778 AMITRIPTYLINE HCL Inactive MECLIZINE HCL 25 MG ORAL TABLET 1 tablet three times daily for 3 days, then 1/ 2 tab three times daily for 3 days. MECLIZINE HCL 25 MG ORAL TABLET 434278 MECLIZINE HCL Inactive AMLODIPINE BESYLATE 5 MG ORAL TABLET Take 1 tab po daily AMLODIPINE BESYLATE 5 MG ORAL TABLET 929242 AMLODIPINE BESYLATE Inactive TOPIRAMATE 25 MG ORAL TABLET 1 tab po BID TOPIRAMATE 25 MG ORAL TABLET 103239 TOPIRAMATE Inactive PREDNISONE 20 MG ORAL TABLET 1 tablet twice daily for 2 days, then 1 tablet once daily for 2 days PREDNISONE 20 MG ORAL TABLET 456152 PREDNISONE Inactive PREDNISONE 20 MG ORAL TABLET 1 tab twice daily for 3 day, then one daily for three days PREDNISONE 20 MG ORAL TABLET 808214 PREDNISONE Inactive NIFEDIPINE ER 30 MG ORAL TABLET EXTENDED RELEASE 24 HOUR 1 daily NIFEDIPINE ER 30 MG ORAL TABLET EXTENDED RELEASE 24 HOUR NIFEDIPINE Inactive AMLODIPINE BESYLATE 5 MG ORAL TABLET 1 tablet by mouth daily 2016 AMLODIPINE BESYLATE 5 MG ORAL TABLET 843421 AMLODIPINE BESYLATE Inactive LASIX 20 MG ORAL TABLET 1 tablet by mouth every morning LASIX 20 MG ORAL TABLET 467279 FUROSEMIDE Inactive POTASSIUM CHLORIDE ER 10 MEQ ORAL CAPSULE EXTENDED RELEASE 1 capsule BID 2016 POTASSIUM CHLORIDE ER 10 MEQ ORAL CAPSULE EXTENDED RELEASE POTASSIUM CHLORIDE Inactive POTASSIUM CHLORIDE 20 MEQ ORAL PACKET 1 tab po q day POTASSIUM CHLORIDE 20 MEQ ORAL PACKET 2556924 POTASSIUM CHLORIDE Inactive PREDNISONE 20 MG ORAL TABLET 2 tablets by mouth today, then 1 tablet by mouth days 2-3 PREDNISONE 20 MG ORAL TABLET 847037 PREDNISONE Inactive SPIRONOLACTONE 25 MG ORAL TABLET 1 tablet by mouth daily SPIRONOLACTONE 25 MG ORAL TABLET 567999 SPIRONOLACTONE Inactive AZITHROMYCIN 250 MG ORAL TABLET 2 po qd x 1 day, then 1 po qd x 4 days 04/06 AZITHROMYCIN 250 MG ORAL TABLET 375568 AZITHROMYCIN Inactive AZITHROMYCIN 250 MG ORAL TABLET 2 po qd x 1 day, then 1 po qd x 4 days 12/30 AZITHROMYCIN 250 MG ORAL TABLET 140183 AZITHROMYCIN Inactive PREDNISONE 20 MG ORAL TABLET 2 po qd x 5 days PREDNISONE 20 MG ORAL TABLET 813567 PREDNISONE Inactive Vital Signs Date Name Value [...] Panel - Chemistry sodium, serum 140 mmol/L 640-199 4891/07/13 potassium, serum 3.2 mmol/L 3.5-5.2 chloride, serum 103 mmol/L 98-107 carbon dioxide, venous blood 26.9 mmol/L 21.0-32.0 blood glucose 93 mg/dL 65-110 calcium, serum 9.2 mg/dL 8.5-10.1 urea nitrogen, blood 13 mg/dL 7- creatinine, serum 0.84 mg/dL 0.60-1.30 sodium, serum 140 mmol/L 964-148 8817/08/21 potassium, serum 3.8 mmol/L 3.5-5.2 chloride, serum [...] ... - Chemistry sodium, serum 141 mmol/L 162-458 5583/08/07 carbon dioxide, venous blood 34.0 mmol/L 21.0-32.0 [...] 1.40 mg/dL 0.00-1.00 cholesterol, serum 192 mg/dL 838-563 6388/10/19 triglyceride, serum, fasting 71 mg/dL 30-200 HDL cholesterol, serum 72 mg/dL 32-60 LDL cholesterol, serum 106 mg/dL 0-130 Lab Report: Rapid Strep - Lab Microbial identification kit, rapid strep method Negative Negative Lab Report: THEOPHYLLINE - Toxicology theophylline level, serum 3.1 ug/mL 10.0-20.0 Encounters Code Encounter Date Provider Facility CPT-74243 Level 3 Est. Patient 12:36:15 BEHAVIORAL HEALTH CARE MANAGER Harinder Cr [facility] CPT-30233 Level 3 Est. Patient 15:14:45 BEHAVIORAL HEALTH CARE MANAGER Harinder Cr [facility] CPT-41445 Level 4 Est. Patient 14:45:25 CDT Harinder Cr [facility] CPT-71454 Level 4 Est. Patient 09:15:13 CDT Harinder Cr [facility] CPT-82807 Level 3 Est. Patient 11:51:58 CDT Harinder Cr [facility] CPT-87456 Level 3 Est. Patient 11:30:05 CDT Harinder Cr [facility] CPT-88342 Level 4 Est. Patient 10:19:23 CDT Harinder Cr [facility] CPT-21374 Level 3 Est. Patient 09:58:58 CDT Harinder Cr [facility] CPT-44708 Level 3 Est. Patient 12:37:21 CDT Harinder Cr [facility] CPT-10049 Level 3 Est. Patient 18:37:17 CDT Harinder Cr [facility] CPT-57945 Level 4 Est. Patient 11:15:54 CDT Nettie Rohith [facility] CPT-37763 Level 3 Est. Patient 16:42:24 CDT Harinder Cr [facility] CPT-10018 Level 3 Est. Patient 15:03:36 CDT Harinder Cr [facility] CPT-14963 Level 3 Est. Patient 15:03:20 CDT Harinder Shaye [facility] CPT-81860 Level 3 Est. Patient 12:14:34 CDT Harinder Shaye [facility] CPT-83987 Level 3 Est. Patient 13:47:15 CDT Harinder Cr [facility] CPT-01904 Level 3 Est. Patient 14:08:24 CDT Harinder Hernandez [facility] CPT-91841 Level 3 Est. Patient 10:07:15 CDT Harinder Hernandez [facility] CPT-85366 Level 3 Est. Patient 10:06:59 CDT Harinder Hernandez [facility] CPT-53668 Level 3 Est. Patient 15:53:29 CDT Jae Morgan MD [facility] CPT-93319 Level 3 Est. Patient 17:19:04 CDT Harinder Hernandez [facility] CPT-63129 Level 3 Est. Patient 11:13:01 CDT Harinder Hernandez [facility] CPT-45670 Level 3 Est. Patient 09:03:58 CDT Harinder Hernandez [facility] CPT-60307 Level 3 Est. Patient 14:46:45 BEHAVIORAL HEALTH CARE MANAGER Harinder Hernandez [facility] CPT-54162 Level 3 Est. Patient 09:35:49 BEHAVIORAL HEALTH CARE MANAGER Harinder Hernandez [facility] CPT-87041 Level 3 Est. Patient 09:29:37 BEHAVIORAL HEALTH CARE MANAGER Harinder Hernandez [facility] CPT-50026 Level 3 Est. Patient 15:51:07 CDT Harinder Hernandez [facility] CPT-55250 Level 3 Est. Patient 18:13:13 CDT Harinder Hernandez [facility] CPT-07488 Level 3 Est. Patient 10:44:19 CDT Harinder Cr [facility] CPT-95214 Level 4 Est. Patient 10:07:19 BEHAVIORAL HEALTH CARE MANAGER Harinder Shaye [facility] CPT-83941 Level 3 Est. Patient 15:59:32 BEHAVIORAL HEALTH CARE MANAGER Harinder Cr [facility] Procedures Code Procedure Name Date Entry Date Standard Description CPT-44574 Abd compl w upright - XRAY USE ONLY 14:48:09 CDT 02/18 CPT-77989 Port a cath flush 13:46:05 CDT CPT-16602 Hip, complete, 2-3 views - XRAY USE ONLY 10:28:40 CDT CPT-13770 BMP - LAB USE ONLY 16:45:09 BEHAVIORAL HEALTH CARE MANAGER CPT-71582 Port a cath flush 12:00:13 BEHAVIORAL HEALTH CARE MANAGER CPT-TCMM Transitional Care Mgmt-Moderate 11:20:16 BEHAVIORAL HEALTH CARE MANAGER CPT-12337 First Vx - Ix admin for Medicare patients 17:35:15 CDT CPT-11221 Fluzone Preservative Free Intramuscular Suspension 17:35 :15 CDT CPT-57387 Microalbumin - LAB USE ONLY 11:52:05 CDT CPT-TCMM Transitional Care Mgmt-Moderate 11:33:57 CDT CPT-82761 No Charge Offi Visit 14:11:29 CDT CPT-57001 Magnesium - LAB USE ONLY 10:45:44 CDT CPT-59186 Lipid - LAB USE ONLY 10:45:44 CDT CPT-05711 CBC - LAB USE ONLY 10:45:44 CDT CPT-89302 Venipuncture Draw Fee 10:45:43 CDT CPT-31432 Venipuncture Draw Fee 18:21:27 CDT CPT-JTINJ Asp/Joint Injection 18:38:04 CDT CPT-35126 Immunization Each Additional Inj 17:38:04 CDT CPT-13756 Immunization Single Admin 17:38:04 CDT CPT-16205 Prevnar 13 17:38:04 CDT CPT-65924 Fluzone Quadrivalent preservative free (>=3yrs.) 17:38: 04 CDT CPT-62940 No Charge Offi Visit 11:14:03 CDT CPT-53362 Chest 2V Frontal and Lat 14:00:18 CDT CPT-OV Office Visit 16:10:28 CDT CPT-JTINJ Asp/Joint Injection 09:03:57 CDT CPT-Cryo Cryotherapy 09:35:49 BEHAVIORAL HEALTH CARE MANAGER CPT-JTINJ Asp/Joint Injection 09:34:45 BEHAVIORAL HEALTH CARE MANAGER CPT-J2930 Solu Medrol 125 mg (Methyl Prednisolone Sodium Succinate) 20:37:27 CDT CPT-67188 Abx/Therapy Injection 20:37:27 CDT CPT-83323 Port a cath flush 08:15:51 CDT CPT-99322 Port a cath flush 09:54:16 CDT CPT-87163 Port a cath flush 09:38:02 CDT CPT-76571 Port a cath flush 11:00:27 BEHAVIORAL HEALTH CARE MANAGER
--- OUTSIDE RECORDS SUMMARY | 2017-12-29 03:53 | XMS REPORT | Clinical Summary ---
Author Author Admin, QIE Organization [facility] [employer] Address Unknown Phone Unavailable Allergies, Adverse Reactions, [...] not elsewhere classified Myocardial Infarction: 410.90 Active aHrinder Hernandez DO Acute myocardial infarction, unspecified site, [...] disorder Abdominal pain 789.00 Active Harinder Shaye David DO Abdominal pain, unspecified site Right leg pain 729.5 Active Harinder Hernandez DO Pain in limb Encounter for [...] TAB 1 tablet by mouth daily SPIRONOLACTONE 62441144920 Prince Pimentel Active POTASSIUM CHLORIDE CR 10 MEQ CPCR 1 capsule BID POTASSIUM CHLORIDE 81982168917 Prince Mccain Active FLUOXETINE HCL 10 MG ORAL CAPS 1 po qd for depression/anxiety FLUOXETINE HCL 58080220522 Active Harinder Hernandez DO Active VOLTAREN 1 % GEL apply q 6-8 hour to left arm as needed for pain DICLOFENAC SODIUM 89049935701 Active Harinder Hernandez DO Active LASIX 20 MG TAB 1 tablet by mouth every morning FUROSEMIDE 47581431522 Prince Mccain Active POTASSIUM CHLORIDE 20 MEQ ORAL PACK 1 tab po BID POTASSIUM CHLORIDE 15900942449 Prince Mccain Active ALBUTEROL SULFATE 0.083 % NEBU SOLN 1 vial neb q 4hrs for severe asthma. 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 FLUTICASONE PROPIONATE HFA 22105934264 Active Harinder Hernandez DO Active EPIPEN 2-BRUNA 0.3 MG/0.3ML INJ SOAJ 1 INJ NEEDED EPINEPHRINE 33244281098 Active Harinder Hernandez DO Active PREDNISONE 20 MG TAB 1 tab twice daily for 3 day, then one daily for three days PREDNISONE 33652367567 No Longer Active Harinder Hernandez DO Active PREDNISONE 20 MG TAB 1 tablet twice daily for 2 days, then 1 tablet once daily for 2 days PREDNISONE 59517894708 No Longer Active Harinder Hernandez DO Active ASMANEX 120 METERED DOSES 220 MCG/INH INH AEPB 2 puffs orally twice daily MOMETASONE FUROATE 99962186449 Active Jeri Sosa LPN Active TOPIRAMATE 25 MG TABS 1 tab po BID TOPIRAMATE 63393000049 No Longer Active Nettie Newberry APRN Active AMLODIPINE BESYLATE 5 MG ORAL TABS Take 1 tab po daily AMLODIPINE BESYLATE 55980669031 No Longer Active Nettie Newberry APRN Active MECLIZINE HCL 25 MG TAB 1 tablet three times daily for 3 days, then 1/2 tab three times daily for 3 days. MECLIZINE HCL 34078137007 No Longer Active Nettie Newberry APRN Active AMITRIPTYLINE HCL 25 MG ORAL TABS 1 q hs prn AMITRIPTYLINE HCL 40028275889 No Longer Active Nettie Newberry APRN Active DILAUDID 2 MG ORAL TABS Take 1/2 tab po every 4 hours as needed for pain 2014 HYDROMORPHONE HCL 91238298775 No Longer Active Nettie Newberry APRN Active CLOPIDOGREL BISULFATE 75 MG ORAL TABS 1 tab by mouth once daily CLOPIDOGREL BISULFATE 75083531421 Active Harinder Hernandez DO Active ATORVASTATIN CALCIUM 10 MG ORAL TABS 1 at bedtime ATORVASTATIN CALCIUM 38919947771 Active Tawnya Pardo MA Active LOVASTATIN 40 MG ORAL TABS Take 1 tab po every hs LOVASTATIN 15087867323 No Longer Active Harinder Hernandez DO Active PREDNISONE 20 MG TAB 2 tabs daily for 4 days, 1 tab daily for 4 days, 1/2 tab daily for 4 days PREDNISONE 87218175781 No Longer Active Harinder Hernandez DO Active LEVAQUIN 500 MG ORAL TABS Take 1 tab po daily x 8 days LEVOFLOXACIN 57674351611 No Longer Active Harinder Hernandez DO Active VENTOLIN HFA 108 (90 BASE) MCG/ACT AERS 2 -4 puffs four times a day PRN 2013 ALBUTEROL SULFATE 20654775532 No Longer Active Jeri Sosa LPN Active ACEBUTOLOL HCL 200 MG CAPS 1 cap in the morning and 2 caps in the evening ACEBUTOLOL HCL 96076315284 No Longer Active Harinder Hernandez DO Active CEFDINIR 300 MG ORAL CAPS take 1 cap po bid x 10 days CEFDINIR 89870446588 No Longer Active Harinder Hernandez DO Active LOVASTATIN 40 MG TABS 1 pill by mouth nightly for cholesterol LOVASTATIN 41192904854 No Longer Active Nettie Newberry APRN Active NITROSTAT 0.4 MG SUBL 1 tab under tongueas needed for chest pain ( may take 3 total, 5 min apart, then call 911) NITROGLYCERIN 06746552365 No Longer Active Nettie Newberry MAHENDRA Active POTASSIUM CHLORIDE CR 10 MEQ CPCR 1 capsule by mouth daily 02/14 POTASSIUM CHLORIDE 96801369323 No Longer Active Nettie Newberry MAHENDRA Active TESSALON PERLES 100 MG CAP 1 to 2 tablets by mouth 3 times daily as needed for cough BENZONATATE 27690757427 No Longer Active Nettie Newberry MAHENDRA Active THEOPHYLLINE ER 200 MG ORAL [id number] Take 1 tab every 12 hours THEOPHYLLINE 29716896094 Active Kortney Mccain Active PREDNISONE 20 MG TAB 2 po qd x 5 days PREDNISONE 82273764414 No Longer Active Jae Morgan MD Active AZITHROMYCIN 250 MG TABS 2 po qd x 1 day, then 1 po qd x 4 days AZITHROMYCIN 89767756632 No Longer Active Jae Morgan MD Active PREDNISONE 20 MG TAB 1 tab twice daily for 3 day, then one daily for three days PREDNISONE 10649500544 No Longer Active Jae Morgan MD Active SINGULAIR 10 MG TABS 1 pill by mouth every evening for breathing. MONTELUKAST SODIUM 85622328857 Active Tawnya Pardo MA Active TYLENOL 325 MG TAB 3 by mouth q4h as needed ACETAMINOPHEN 25421768899 Active Harinder Hernandez DO Active POTASSIUM CHLORIDE ER 10 MEQ CR-TABS take 1 tab po daily POTASSIUM CHLORIDE 33544738401 No Longer Active Harinder Hernandez DO Active PREDNISONE 20 MG TAB 1 TID x 2 days, then 1 BID x 3 days, then 1 Daily x 3 days, then stop PREDNISONE 83426115662 No Longer Active John Montemayor APRN Active LEVAQUIN 500 MG TAB 1 tablet by mouth daily LEVOFLOXACIN 59212230728 No Longer Active Jillina Frazell CORRESPONDENCE RENEW CLERK Active NEURONTIN 300 MG CAP 1 cap by mouth three times daily for restless leg 06/22 GABAPENTIN 14629389185 No Longer Active Harinder Hernandez DO Active BENZONATATE 100 MG CAPS 1 cap po TID PRN BENZONATATE 51401405441 No Longer Active Harinder Hernandez DO Active MONTELUKAST SODIUM 10 MG TABS 1 tab po in the evening MONTELUKAST SODIUM 29858603416 No Longer Active Harinder Hernandez DO Active MUPIROCIN 2 % OINT apply to affected area BID x 14 days MUPIROCIN 60393069939 No Longer Active Harinder Hernandez DO Active TYLENOL EXTRA STRENGTH 500 MG TABS as needed ACETAMINOPHEN 04375628588 No Longer Active Harinder Hernandez DO Active PREDNISONE 10 MG TABS 1 tab po daily PREDNISONE 56268854904 No Longer Active Harinder Hernandez DO Active PREDNISONE 20 MG TAB 2 tabs daily for 4 days, 1 tab daily for 4 days, 1/2 tab daily for 4 days PREDNISONE 66531893440 No Longer Active Harinder Hernandez DO Active AZITHROMYCIN 250 MG TABS 2 po qd x 1 day, then 1 po qd x 4 days AZITHROMYCIN 00340977199 No Longer Active Harinder Hernandez DO Active PREDNISONE 20 MG TAB 3 tabs today, then 1 tab twice daily for 3 day, then one daily for three days PREDNISONE 88627830935 No Longer Active Harinder Hernandez DO Active NIFEDIAC CC 30 MG [id number] 1 tablet daily for raynaud's syndrome NIFEDIPINE 84038952591 No Longer Active Tawnya Pardo MA Active AMBIEN 10 MG TAB 1/2 tab by mouth at bedtime as needed for sleep ZOLPIDEM TARTRATE 19578843231 Active Ciera Pimentel Active CLONAZEPAM 1 MG TABS 1 tablet at bedtime for insomnia and restless legs 09/14 CLONAZEPAM 36705950990 Active Harinder Hernandez DO Active CLONAZEPAM 0.5 MG TABS 1 tab po daily CLONAZEPAM 43336643617 No Longer Active Harinder Hernandez DO Active PREDNISONE 10 MG TAB 1 tablet daily for COPD PREDNISONE 44528826287 Active Ciera Pimentel Active PROAIR HFA 108 (90 BASE) MCG/ACT AERS 2 puffs four times a day as needed 2012 ALBUTEROL SULFATE 19995663581 Active Harinder Hernandez DO Active FLOVENT HFA 110 MCG/ACT AERO 2 puffs inhaled b.i.d. FLUTICASONE PROPIONATE HFA 47672282543 Active Kortneyalice Mccain Active ACIPHEX 20 MG TBEC 1 tab po daily RABEPRAZOLE SODIUM 50334635670 Active Kaylah Newberry Active CLONAZEPAM 0.5 MG TABS 1 tab po daily CLONAZEPAM 0.5 MG TABS 037401 CLONAZEPAM Inactive PREDNISONE 20 MG TAB 3 tabs today, then 1 tab twice daily for 3 day, then one daily for three days PREDNISONE 20 MG TAB 755600 PREDNISONE Inactive PREDNISONE 20 MG TAB 2 tabs daily for 4 days, 1 tab daily for 4 days, 1/2 tab daily for 4 days PREDNISONE 20 MG TAB 399829 PREDNISONE Inactive PREDNISONE 10 MG TABS 1 tab po daily PREDNISONE 10 MG TABS 033006 PREDNISONE Inactive TYLENOL EXTRA STRENGTH 500 MG TABS as needed TYLENOL EXTRA STRENGTH 500 MG TABS 937237 ACETAMINOPHEN Inactive MUPIROCIN 2 % OINT apply to affected area BID x 14 days MUPIROCIN 2 % OINT 819425 MUPIROCIN Inactive MONTELUKAST SODIUM 10 MG TABS 1 tab po in the evening MONTELUKAST SODIUM 10 MG TABS 20010818 MONTELUKAST SODIUM Inactive BENZONATATE 100 MG CAPS 1 cap po TID PRN BENZONATATE 100 MG CAPS 658912 BENZONATATE Inactive NEURONTIN 300 MG CAP 1 cap by mouth three times daily for restless leg 06/22 NEURONTIN 300 MG CAP 741710 GABAPENTIN Inactive LEVAQUIN 500 MG TAB 1 tablet by mouth daily LEVAQUIN 500 MG TAB 793450 LEVOFLOXACIN Inactive PREDNISONE 20 MG TAB 1 TID x 2 days, then 1 BID x 3 days, then 1 Daily x 3 days, then stop PREDNISONE 20 MG TAB 444506 PREDNISONE Inactive POTASSIUM CHLORIDE ER 10 MEQ CR-TABS take 1 tab po daily POTASSIUM CHLORIDE ER 10 MEQ CR-TABS POTASSIUM CHLORIDE Inactive PREDNISONE 20 MG TAB 1 tab twice daily for 3 day, then one daily for three days PREDNISONE 20 MG TAB 251066 PREDNISONE Inactive TESSALON PERLES 100 MG CAP 1 to 2 tablets by mouth 3 times daily as needed for cough TESSALON PERLES 100 MG CAP 760126 BENZONATATE Inactive POTASSIUM CHLORIDE CR 10 MEQ CPCR 1 capsule by mouth daily 02/14 POTASSIUM CHLORIDE CR 10 MEQ CPCR POTASSIUM CHLORIDE Inactive NITROSTAT 0.4 MG SUBL 1 tab under tongueas needed for chest pain ( may take 3 total, 5 min apart, then call 911) NITROSTAT 0.4 MG SUBL 892709 NITROGLYCERIN Inactive LOVASTATIN 40 MG TABS 1 pill by mouth nightly for cholesterol LOVASTATIN 40 MG TABS 779365 LOVASTATIN Inactive CEFDINIR 300 MG ORAL CAPS take 1 cap po bid x 10 days CEFDINIR 300 MG ORAL CAPS 768199 CEFDINIR Inactive ACEBUTOLOL HCL 200 MG CAPS 1 cap in the morning and 2 caps in the evening ACEBUTOLOL HCL 200 MG CAPS 830854 ACEBUTOLOL HCL Inactive VENTOLIN HFA 108 (90 [...] for 4 days PREDNISONE 20 MG TAB 078806 PREDNISONE Inactive LOVASTATIN 40 MG ORAL TABS Take 1 tab po every hs LOVASTATIN 40 MG ORAL TABS 981361 LOVASTATIN Inactive DILAUDID 2 MG ORAL TABS Take 1/2 tab po every 4 hours as needed for pain 2014 DILAUDID 2 MG ORAL TABS 315197 HYDROMORPHONE HCL Inactive AMITRIPTYLINE HCL 25 MG ORAL TABS 1 q hs prn AMITRIPTYLINE HCL 25 MG ORAL TABS 129899 AMITRIPTYLINE HCL Inactive MECLIZINE HCL 25 MG TAB 1 tablet three times daily for 3 days, then 1/2 tab three times daily for 3 days. MECLIZINE HCL 25 MG TAB 485033 MECLIZINE HCL Inactive AMLODIPINE BESYLATE 5 MG ORAL TABS Take 1 tab po daily AMLODIPINE BESYLATE 5 MG ORAL TABS 247408 AMLODIPINE BESYLATE Inactive TOPIRAMATE 25 MG TABS 1 tab po BID TOPIRAMATE 25 MG TABS 413642 TOPIRAMATE Inactive PREDNISONE 20 MG TAB 1 tablet twice daily for 2 days, then 1 tablet once daily for 2 days PREDNISONE 20 MG TAB 660037 PREDNISONE Inactive PREDNISONE 20 MG TAB 1 tab twice daily for 3 day, then one daily for three days PREDNISONE 20 MG TAB 816146 PREDNISONE Inactive NIFEDIPINE ER 30 MG ORAL [id number] 1 daily NIFEDIPINE ER 30 MG ORAL [id number] NIFEDIPINE Inactive AMLODIPINE BESYLATE 5 MG TABS 1 tablet by mouth daily AMLODIPINE BESYLATE 5 MG TABS 255804 AMLODIPINE BESYLATE Inactive AZITHROMYCIN 250 MG TABS 2 po qd x 1 day, then 1 po qd x 4 days AZITHROMYCIN 250 MG TABS 9412406 AZITHROMYCIN Inactive AZITHROMYCIN 250 MG TABS 2 po qd x 1 day, then 1 po qd x 4 days AZITHROMYCIN 250 MG TABS 4020719 AZITHROMYCIN Inactive PREDNISONE 20 MG TAB 2 po qd x 5 days PREDNISONE 20 MG TAB 448292 PREDNISONE Inactive Vital Signs Date Name Value [...] Panel - Chemistry sodium, serum 137 mmol/L 486-021 0400/01/03 urea nitrogen, blood 8 mg/dL 7-18 creatinine, serum 0.82 mg/dL 0.55-1.30 potassium, serum 3.4 mmol/L 3.5-5.2 chloride, serum 102 mmol/L 98-107 carbon dioxide, venous blood 29.2 mmol/L 21.0-32.0 blood glucose 87 mg/dL 65-110 calcium, serum 8.5 mg/dL 8.5-10.1 sodium, serum 140 mmol/L 977-198 8331/07/13 urea nitrogen, blood 13 mg/dL 7-18 creatinine, serum 0.84 mg/dL 0.60-1.30 potassium, serum 3.2 mmol/L 3.5-5.2 chloride, serum 103 mmol/L 98-107 carbon dioxide, venous blood 26.9 mmol/L 21.0-32.0 blood glucose 93 mg/dL 65-110 calcium, serum 9.2 mg/dL 8.5-10.1 Lab Report: CBC - Hematology mean corpuscular hemoglobin, RBC 32.8 pg 27.0-31.2 mean corpuscular hemoglobin concentration, RBC 34.3 G/DL % 31.8- 35.4 red blood cell distribution width 13.9 % 11.6-14.8 platelet count 182 10^3/MM^3 10*3/mm3 966-425 8539/08/08 leukocyte count, blood 5.6 10^3/MM^3 10*3/mm3 4.6-10.2 erythrocyte (RBC) count 4.09 10^6/MM^3 10*6/mm3 4.04-5.48 hemoglobin, blood 13.4 g/dL 12.0-16.0 hematocrit, blood 39.2 % 36.0-46.0 mean corpuscular volume, RBC 96 fL 80-97 Lab Report: CBC, UADIP W/MICRO, AUTO - [...] 1.020 1.000-1.030 pH, urine, semiquantitative 5.5 5.0-8.5 glucose, urine, semiquantitative Negative Negative ketones, urine, by test strip Negative Negative bilirubin, urine Negative Negative urobilinogen, urine, semiquantitative (dipstick) 0.2 E.U./dL Normal leukocyte esterase, urine, by dipstick Negative Negative nitrite, urine, semiquantitative Negative Negative Lab Report: Comp. Metabolic Panel, Thyroid Stimulating Hormone (L), Magn ... - Chemistry sodium, serum 141 mmol/L 560-419 1392/08/07 carbon dioxide, venous blood 34.0 mmol/L 21.0-32.0 [...] 0.40 mg/dL 0.00-1.00 sodium, serum 142 mmol/L 577-347 5918/08/08 LDL cholesterol, serum 96 mg/dL 0-130 HDL [...] 10.0-20.0 Encounters Code Encounter Date Provider Facility CPT-22756 Level 4 Est. Patient 14:45:25 CDT Harinder [facility] CPT-81689 Level 4 Est. Patient 09:15:13 CDT Harinder [facility] CPT-00590 Level 3 Est. Patient 11:51:58 CDT Harinder Hernandez [facility] CPT-91699 Level 3 Est. Patient 11:30:05 CDT Harinder Hernandez [facility] CPT-10816 Level 4 Est. Patient 10:19:23 CDT Harinder Hernandez [facility] CPT-69396 Level 3 Est. Patient 09:58:58 CDT Harinder Hernandez [facility] CPT-30061 Level 3 Est. Patient 12:37:21 CDT Harinder Cr [facility] CPT-46756 Level 3 Est. Patient 18:37:17 CDT Harinder Hernandez [facility] CPT-35331 Level 4 Est. Patient 11:15:54 CDT Nettie Newberry APRN [facility] CPT-63726 Level 3 Est. Patient 16:42:24 CDT Harinder Hernandez [facility] CPT-07545 Level 3 Est. Patient 15:03:36 CDT Harinder Hernandez [facility] CPT-67771 Level 3 Est. Patient 15:03:20 CDT Harinder Hernandez [facility] CPT-70886 Level 3 Est. Patient 12:14:34 CDT Harinder Hernandez [facility] CPT-54537 Level 3 Est. Patient 13:47:15 CDT Harinder Hernandez [facility] CPT-34316 Level 3 Est. Patient 14:08:24 CDT Harinder Hernandez [facility] CPT-37898 Level 3 Est. Patient 10:07:15 CDT Harinder Cr [facility] CPT-52327 Level 3 Est. Patient 10:06:59 CDT Harinder Cr [facility] CPT-63888 Level 3 Est. Patient 15:53:29 CDT Jae Morgan MD [facility] CPT-23016 Level 3 Est. Patient 17:19:04 CDT Harinder Hernandez [facility] CPT-93249 Level 3 Est. Patient 11:13:01 CDT Harinder Hernandez [facility] CPT-50179 Level 3 Est. Patient 09:03:58 CDT Harinder Hernandez [facility] CPT-24227 Level 3 Est. Patient 14:46:45 [employer]ERAL PLANNING COUNSELOR Harinder Cr David [facility] CPT-54083 Level 3 Est. Patient 09:35:49 FUNERAL PLANNING COUNSELOR Harinder Hernandez [facility] CPT-29893 Level 3 Est. Patient 09:29:37 FUNERAL PLANNING COUNSELOR Harinder Cr David [facility] CPT-56772 Level 3 Est. Patient 15:51:07 CDT Harinder Hernandez [facility] CPT-16451 Level 3 Est. Patient 18:13:13 CDT Harinder Hernandez [facility] CPT-29264 Level 3 Est. Patient 10:44:19 CDT Harinder Hernandez [facility] CPT-81316 Level 4 Est. Patient 10:07:19 FUNERAL PLANNING COUNSELOR Harinder Hernandez [facility] CPT-56450 Level 3 Est. Patient 15:59:32 FUNERAL PLANNING COUNSELOR Harinder Cr [facility] Procedures Code Procedure Name Date Entry Date Standard Description CPT-43093 Abd compl w upright - XRAY USE ONLY 14:48:09 CDT 02/18 CPT-51967 Port a cath flush 13:46:05 CDT CPT-30610 Hip, complete, 2-3 views - XRAY USE ONLY 10:28:40 CDT CPT-65709 BMP - LAB USE ONLY 16:45:09 [employer]ERAL PLANNING COUNSELOR CPT-39850 Port a cath flush 12:00:13 FUNERAL PLANNING COUNSELOR CPT-TCMM Transitional Care Mgmt-Moderate 11:20:16 FUNERAL PLANNING COUNSELOR CPT-35489 First Vx - Ix admin for Medicare patients 17:35:15 CDT CPT-32291 Fluzone Preservative Free Intramuscular Suspension 17:35 :15 CDT CPT-16828 Microalbumin - LAB USE ONLY 11:52:05 CDT CPT-TCMM Transitional Care Mgmt-Moderate 11:33:57 CDT CPT-84936 No Charge Offi Visit 14:11:29 CDT CPT-29176 Magnesium - LAB USE ONLY 10:45:44 CDT CPT-30312 Lipid - LAB USE ONLY 10:45:44 CDT CPT-97613 CBC - LAB USE ONLY 10:45:44 CDT CPT-90319 Venipuncture Draw Fee 10:45:43 CDT CPT-98498 Venipuncture Draw Fee 18:21:27 CDT CPT-JTINJ Asp/Joint Injection 18:38:04 CDT CPT-64633 Immunization Each Additional Inj 17:38:04 CDT CPT-16898 Immunization Single Admin 17:38:04 CDT CPT-19893 Prevnar 13 17:38:04 CDT CPT-48803 Fluzone Quadrivalent preservative free (>=3yrs.) 17:38: 04 CDT CPT-32375 No Charge Offi Visit 11:14:03 CDT CPT-16644 Chest 2V Frontal and Lat 14:00:18 CDT CPT-OV Office Visit 16:10:28 CDT CPT-JTINJ Asp/Joint Injection 09:03:57 CDT CPT-Cryo Cryotherapy 09:35:49 [employer]ERAL PLANNING COUNSELOR CPT-JTINJ Asp/Joint Injection 09:34:45 [employer]ERAL PLANNING COUNSELOR CPT-J2930 Solu Medrol 125 mg (Methyl Prednisolone Sodium Succinate) 20:37:27 CDT CPT-73570 Abx/Therapy Injection 20:37:27 CDT CPT-70703 Port a cath flush 08:15:51 CDT CPT-43132 Port a cath flush 09:54:16 CDT CPT-16290 Port a cath flush 09:38:02 CDT CPT-86891 Port a cath flush 11:00:27 FUNERAL PLANNING COUNSELOR
--- OUTSIDE RECORDS SUMMARY | 2017-12-29 03:54 | XMS REPORT | Clinical Summary ---
Author Author Admin, QIE Organization [facility] Address Unknown Phone Unavailable Allergies, Adverse [...] Harinder Hernandez DO IBUPROFEN Critical Active Harinder eHrnandez DO HYDROCODONE-ACETAMINOPHEN Critical Active Harinder Hernandez DO [...] pneumoniae ( Pneumococcus) V03.82 Resolved Harinder Cr Daivd DO Need for prophylactic vaccination against Streptococcus [...] DO 10/02 Clostridium difficile colitis ICD-008.45 Inactive Hrainder Hernandez DO Abdominal pain, right lower quadrant [...] CR-TABS 1 po q day POTASSIUM CHLORIDE 40529398125 Active Kortney Mccain Active POTASSIUM CHLORIDE 20 MEQ ORAL PACK 1 tab po q day POTASSIUM CHLORIDE 36434807439 No Longer Active Kortney Mccain Active POTASSIUM CHLORIDE CR 10 MEQ CPCR 1 capsule BID POTASSIUM CHLORIDE 41616039334 No Longer Active Kortney Mccain Active LASIX 20 MG TAB 1 tablet by mouth every morning FUROSEMIDE 81368727886 No Longer Active Kortney Mccain Active SPIRONOLACTONE 25 MG TAB 1 tablet by mouth daily SPIRONOLACTONE 21391993971 Active Kortney Mccain Active FLUOXETINE HCL 10 MG ORAL CAPS 1 po qd for depression/anxiety FLUOXETINE HCL 45775531094 Active Harinder Hernandez DO Active VOLTAREN 1 % GEL apply q 6-8 hour to left arm as needed for pain DICLOFENAC SODIUM 47407464117 Active Kortney Mccain Active ALBUTEROL SULFATE 0.083 % NEBU SOLN 1 vial neb q 4hrs for severe asthma. 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 FLUTICASONE PROPIONATE HFA 07720948810 Active Harinder Hernandez DO Active EPIPEN 2-BRUNA 0.3 MG/0.3ML INJ SOAJ 1 INJ NEEDED EPINEPHRINE 29836637166 Active Harinder Hernandez DO Active PREDNISONE 20 MG TAB 1 tab twice daily for 3 day, then one daily for three days PREDNISONE 91084072018 No Longer Active Harinder Hernandez DO Active PREDNISONE 20 MG TAB 1 tablet twice daily for 2 days, then 1 tablet once daily for 2 days PREDNISONE 33606430970 No Longer Active Harinder Hernandez DO Active ASMANEX 120 METERED DOSES 220 MCG/INH INH AEPB 2 puffs orally twice daily MOMETASONE FUROATE 09478208781 Active Jeri Sosa LPN Active TOPIRAMATE 25 MG TABS 1 tab po BID TOPIRAMATE 23670216103 No Longer Active Nettie Newberry APRN Active AMLODIPINE BESYLATE 5 MG ORAL TABS Take 1 tab po daily AMLODIPINE BESYLATE 74124350733 No Longer Active Nettieog Newberry APRN Active MECLIZINE HCL 25 MG TAB 1 tablet three times daily for 3 days, then 1/2 tab three times daily for 3 days. MECLIZINE HCL 17384255653 No Longer Active Nettie King MAHENDRA Active AMITRIPTYLINE HCL 25 MG ORAL TABS 1 q hs prn AMITRIPTYLINE HCL 38283079229 No Longer Active Nettie Newberry MAHENDRA Active DILAUDID 2 MG ORAL TABS Take 1/2 tab po every 4 hours as needed for pain 2014 HYDROMORPHONE HCL 79136131114 No Longer Active Nettie King MAHENDRA Active CLOPIDOGREL BISULFATE 75 MG ORAL TABS 1 tab by mouth once daily CLOPIDOGREL BISULFATE 49932412912 Active Harinder Hernandez DO Active ATORVASTATIN CALCIUM 10 MG ORAL TABS 1 at bedtime ATORVASTATIN CALCIUM 57597921624 Active Kortney Mccain Active LOVASTATIN 40 MG ORAL TABS Take 1 tab po every hs LOVASTATIN 27788562042 No Longer Active Harinder Hernandez DO Active PREDNISONE 20 MG TAB 2 tabs daily for 4 days, 1 tab daily for 4 days, 1/2 tab daily for 4 days PREDNISONE 13831256350 No Longer Active Harinder Hernandez DO Active LEVAQUIN 500 MG ORAL TABS Take 1 tab po daily x 8 days LEVOFLOXACIN 39588892900 No Longer Active Harinder Hernandez DO Active VENTOLIN HFA 108 (90 BASE) MCG/ACT AERS 2 -4 puffs four times a day PRN 2013 ALBUTEROL SULFATE 21091807609 No Longer Active Jeri Sosa LPN Active ACEBUTOLOL HCL 200 MG CAPS 1 cap in the morning and 2 caps in the evening ACEBUTOLOL HCL 93776656873 No Longer Active Harinder Hernandez DO Active CEFDINIR 300 MG ORAL CAPS take 1 cap po bid x 10 days CEFDINIR 98174975710 No Longer Active Harinder Hernandez DO Active LOVASTATIN 40 MG TABS 1 pill by mouth nightly for cholesterol LOVASTATIN 44425099702 No Longer Active Nettie Newberry MAHENDRA Active NITROSTAT 0.4 MG SUBL 1 tab under tongueas needed for chest pain ( may take 3 total, 5 min apart, then call 911) NITROGLYCERIN 89922364077 No Longer Active Nettie Newberry APRN Active POTASSIUM CHLORIDE CR 10 MEQ CPCR 1 capsule by mouth daily 02/14 POTASSIUM CHLORIDE 43471942813 No Longer Active Nettie King MAHENDRA Active TESSALON PERLES 100 MG CAP 1 to 2 tablets by mouth 3 times daily as needed for cough BENZONATATE 68361634553 No Longer Active Nettie Newberry APRN Active THEOPHYLLINE ER 200 MG ORAL [id number] Take 1 tab every 12 hours THEOPHYLLINE 61917277804 Active Kortney Mccain Active PREDNISONE 20 MG TAB 2 po qd x 5 days PREDNISONE 63988030467 No Longer Active Jae Morgan MD Active AZITHROMYCIN 250 MG TABS 2 po qd x 1 day, then 1 po qd x 4 days AZITHROMYCIN 26292156561 No Longer Active Jae Morgan MD Active PREDNISONE 20 MG TAB 1 tab twice daily for 3 day, then one daily for three days PREDNISONE 23679465006 No Longer Active Jae Morgan MD Active SINGULAIR 10 MG TABS 1 pill by mouth every evening for breathing. MONTELUKAST SODIUM 77562505966 Active Kortney Mccain Active TYLENOL 325 MG TAB 3 by mouth q4h as needed ACETAMINOPHEN 89961988777 Active Harinder Hernandez DO Active POTASSIUM CHLORIDE ER 10 MEQ CR-TABS take 1 tab po daily POTASSIUM CHLORIDE 53511804268 No Longer Active Harinder Hernandez DO Active PREDNISONE 20 MG TAB 1 TID x 2 days, then 1 BID x 3 days, then 1 Daily x 3 days, then stop PREDNISONE 33461735327 No Longer Active John Montemayor APRN Active LEVAQUIN 500 MG TAB 1 tablet by mouth daily LEVOFLOXACIN 13321406998 No Longer Active Jillina Frazell TAX EXPERT Active NEURONTIN 300 MG CAP 1 cap by mouth three times daily for restless leg 06/22 GABAPENTIN 18867753556 No Longer Active Harinder Hernandez DO Active BENZONATATE 100 MG CAPS 1 cap po TID PRN BENZONATATE 00483032853 No Longer Active Harinder Hernandez DO Active MONTELUKAST SODIUM 10 MG TABS 1 tab po in the evening MONTELUKAST SODIUM 80071805438 No Longer Active Harinder Hernandez DO Active MUPIROCIN 2 % OINT apply to affected area BID x 14 days MUPIROCIN 86024147127 No Longer Active Harinder Hernandez DO Active TYLENOL EXTRA STRENGTH 500 MG TABS as needed ACETAMINOPHEN 46511846266 No Longer Active Harinder Hernandez DO Active PREDNISONE 10 MG TABS 1 tab po daily PREDNISONE 58411135471 No Longer Active Harinder Hernandez DO Active PREDNISONE 20 MG TAB 2 tabs daily for 4 days, 1 tab daily for 4 days, 1/2 tab daily for 4 days PREDNISONE 79820872561 No Longer Active Harinder Hernandez DO Active AZITHROMYCIN 250 MG TABS 2 po qd x 1 day, then 1 po qd x 4 days AZITHROMYCIN 62898666577 No Longer Active Harinder Hernandez DO Active PREDNISONE 20 MG TAB 3 tabs today, then 1 tab twice daily for 3 day, then one daily for three days PREDNISONE 91922445730 No Longer Active Harinder Hernandez DO Active NIFEDIAC CC 30 MG [id number] 1 tablet daily for raynaud's syndrome NIFEDIPINE 71502040065 No Longer Active Tawnya Pardo MA Active AMBIEN 10 MG TAB 1/2 tab by mouth at bedtime as needed for sleep ZOLPIDEM TARTRATE 53136947862 Active Kortney Mccain Active CLONAZEPAM 1 MG TABS 1 tablet at bedtime for insomnia and restless legs 09/14 CLONAZEPAM 37691142473 Active Harinder Hernandez DO Active CLONAZEPAM 0.5 MG TABS 1 tab po daily CLONAZEPAM 55494517855 No Longer Active Harinder Hernandez DO Active PREDNISONE 10 MG TAB 1 tablet daily for COPD PREDNISONE 21699411019 Active Harinder Hernandez DO Active PROAIR HFA 108 (90 BASE) MCG/ACT AERS 2 puffs four times a day as needed 2012 ALBUTEROL SULFATE 83393053739 Active Harinder Hernandez DO Active FLOVENT HFA 110 MCG/ACT AERO 2 puffs inhaled b.i.d. FLUTICASONE PROPIONATE HFA 64778108645 Active Kortney Mccain Active ACIPHEX 20 MG TBEC 1 tab po daily RABEPRAZOLE SODIUM 93360482231 Active Kaylah Newberry Active CLONAZEPAM 0.5 MG TABS 1 tab po daily CLONAZEPAM 0.5 MG TABS 927748 CLONAZEPAM Inactive PREDNISONE 20 MG TAB 3 tabs today, then 1 tab twice daily for 3 day, then one daily for three days PREDNISONE 20 MG TAB 037143 PREDNISONE Inactive PREDNISONE 20 MG TAB 2 tabs daily for 4 days, 1 tab daily for 4 days, 1/2 tab daily for 4 days PREDNISONE 20 MG TAB 428451 PREDNISONE Inactive PREDNISONE 10 MG TABS 1 tab po daily PREDNISONE 10 MG TABS 650239 PREDNISONE Inactive TYLENOL EXTRA STRENGTH 500 MG TABS as needed TYLENOL EXTRA STRENGTH 500 MG TABS 489797 ACETAMINOPHEN Inactive MUPIROCIN 2 % OINT apply to affected area BID x 14 days MUPIROCIN 2 % OINT 470567 MUPIROCIN Inactive MONTELUKAST SODIUM 10 MG TABS 1 tab po in the evening MONTELUKAST SODIUM 10 MG TABS 20010818 MONTELUKAST SODIUM Inactive BENZONATATE 100 MG CAPS 1 cap po TID PRN BENZONATATE 100 MG CAPS 665628 BENZONATATE Inactive NEURONTIN 300 MG CAP 1 cap by mouth three times daily for restless leg 06/22 NEURONTIN 300 MG CAP 292440 GABAPENTIN Inactive LEVAQUIN 500 MG TAB 1 tablet by mouth daily LEVAQUIN 500 MG TAB 506129 LEVOFLOXACIN Inactive PREDNISONE 20 MG TAB 1 TID x 2 days, then 1 BID x 3 days, then 1 Daily x 3 days, then stop PREDNISONE 20 MG TAB 862088 PREDNISONE Inactive POTASSIUM CHLORIDE ER 10 MEQ CR-TABS take 1 tab po daily POTASSIUM CHLORIDE ER 10 MEQ CR-TABS POTASSIUM CHLORIDE Inactive PREDNISONE 20 MG TAB 1 tab twice daily for 3 day, then one daily for three days PREDNISONE 20 MG TAB 143077 PREDNISONE Inactive TESSALON PERLES 100 MG CAP 1 to 2 tablets by mouth 3 times daily as needed for cough TESSALON PERLES 100 MG CAP 994139 BENZONATATE Inactive POTASSIUM CHLORIDE CR 10 MEQ CPCR 1 capsule by mouth daily 02/14 POTASSIUM CHLORIDE CR 10 MEQ CPCR POTASSIUM CHLORIDE Inactive NITROSTAT 0.4 MG SUBL 1 tab under tongueas needed for chest pain ( may take 3 total, 5 min apart, then call 911) NITROSTAT 0.4 MG SUBL 547406 NITROGLYCERIN Inactive LOVASTATIN 40 MG TABS 1 pill by mouth nightly for cholesterol LOVASTATIN 40 MG TABS 937295 LOVASTATIN Inactive CEFDINIR 300 MG ORAL CAPS take 1 cap po bid x 10 days CEFDINIR 300 MG ORAL CAPS 199126 CEFDINIR Inactive ACEBUTOLOL HCL 200 MG CAPS 1 cap in the morning and 2 caps in the evening ACEBUTOLOL HCL 200 MG CAPS 476052 ACEBUTOLOL HCL Inactive VENTOLIN HFA 108 (90 BASE) MCG/ACT AERS 2 -4 puffs four times a day PRN 2013 VENTOLIN HFA 108 (90 BASE) MCG/ACT AERS ALBUTEROL SULFATE Inactive LEVAQUIN 500 MG ORAL TABS Take 1 tab po daily x 8 days LEVAQUIN 500 MG ORAL TABS 350204 LEVOFLOXACIN Inactive PREDNISONE 20 MG TAB 2 tabs daily for 4 days, 1 tab daily for 4 days, 1/2 tab daily for 4 days PREDNISONE 20 MG TAB 793858 PREDNISONE Inactive LOVASTATIN 40 MG ORAL TABS Take 1 tab po every hs LOVASTATIN 40 MG ORAL TABS 792981 LOVASTATIN Inactive DILAUDID 2 MG ORAL TABS Take 1/2 tab po every 4 hours as needed for pain 2014 DILAUDID 2 MG ORAL TABS 688865 HYDROMORPHONE HCL Inactive AMITRIPTYLINE HCL 25 MG ORAL TABS 1 q hs prn AMITRIPTYLINE HCL 25 MG ORAL TABS 547460 AMITRIPTYLINE HCL Inactive MECLIZINE HCL 25 MG TAB 1 tablet three times daily for 3 days, then 1/2 tab three times daily for 3 days. MECLIZINE HCL 25 MG TAB 229608 MECLIZINE HCL Inactive AMLODIPINE BESYLATE 5 MG ORAL TABS Take 1 tab po daily AMLODIPINE BESYLATE 5 MG ORAL TABS 297297 AMLODIPINE BESYLATE Inactive TOPIRAMATE 25 MG TABS 1 tab po BID TOPIRAMATE 25 MG TABS 358777 TOPIRAMATE Inactive PREDNISONE 20 MG TAB 1 tablet twice daily for 2 days, then 1 tablet once daily for 2 days PREDNISONE 20 MG TAB 392837 PREDNISONE Inactive PREDNISONE 20 MG TAB 1 tab twice daily for 3 day, then one daily for three days PREDNISONE 20 MG TAB 772912 PREDNISONE Inactive NIFEDIPINE ER 30 MG ORAL [id number] 1 daily NIFEDIPINE ER 30 MG ORAL [id number] NIFEDIPINE Inactive AMLODIPINE BESYLATE 5 MG TABS 1 tablet by mouth daily AMLODIPINE BESYLATE 5 MG TABS 837025 AMLODIPINE BESYLATE Inactive LASIX 20 MG TAB 1 tablet by mouth every morning LASIX 20 MG TAB 986282 FUROSEMIDE Inactive POTASSIUM CHLORIDE CR 10 MEQ CPCR 1 capsule BID POTASSIUM CHLORIDE CR 10 MEQ CPCR POTASSIUM CHLORIDE Inactive POTASSIUM CHLORIDE 20 MEQ ORAL PACK 1 tab po q day POTASSIUM CHLORIDE 20 MEQ ORAL PACK 9686482 POTASSIUM CHLORIDE Inactive AZITHROMYCIN 250 MG TABS 2 po qd x 1 day, then 1 po qd x 4 days AZITHROMYCIN 250 MG TABS 943256 AZITHROMYCIN Inactive AZITHROMYCIN 250 MG TABS 2 po qd x 1 day, then 1 po qd x 4 days AZITHROMYCIN 250 MG TABS 885677 AZITHROMYCIN Inactive PREDNISONE 20 MG TAB 2 po qd x 5 days PREDNISONE 20 MG TAB 157991 PREDNISONE Inactive Vital Signs Date Name Value [...] Panel - Chemistry sodium, serum 137 mmol/L 555-385 2151/01/03 potassium, serum 3.4 mmol/L 3.5-5.2 chloride, serum 102 mmol/L 98-107 carbon dioxide, venous blood 29.2 mmol/L 21.0-32.0 blood glucose 87 mg/dL 65-110 calcium, serum 8.5 mg/dL 8.5-10.1 urea nitrogen, blood 8 mg/dL 7-18 creatinine, serum 0.82 mg/dL 0.55-1.30 sodium, serum 140 mmol/L 445-375 5231/07/13 potassium, serum 3.2 mmol/L 3.5-5.2 chloride, serum 103 mmol/L 98-107 carbon dioxide, venous blood 26.9 mmol/L 21.0-32.0 blood glucose 93 mg/dL 65-110 calcium, serum 9.2 mg/dL 8.5-10.1 urea nitrogen, blood 13 mg/dL 7-18 creatinine, serum 0.84 mg/dL 0.60-1.30 sodium, serum 140 mmol/L 558-512 8014/08/21 potassium, serum 3.8 mmol/L 3.5-5.2 chloride, serum [...] ... - Chemistry sodium, serum 141 mmol/L 648-526 8404/08/07 carbon dioxide, venous blood 34.0 mmol/L 21.0-32.0 [...] 0-19 Encounters Code Encounter Date Provider Facility CPT-24423 Level 4 Est. Patient 14:45:25 CDT Harinder Hernandez [facility] CPT-93694 Level 4 Est. Patient 09:15:13 CDT Harinder Cr [facility] CPT-09837 Level 3 Est. Patient 11:51:58 CDT Harinder Cr [facility] CPT-64094 Level 3 Est. Patient 11:30:05 CDT Harinder Cr [facility] CPT-19674 Level 4 Est. Patient 10:19:23 CDT Harinder Cr [facility] CPT-75998 Level 3 Est. Patient 09:58:58 CDT Harinder Cr [facility] CPT-86956 Level 3 Est. Patient 12:37:21 CDT Harinder Cr [facility] CPT-30788 Level 3 Est. Patient 18:37:17 CDT Harinder Cr [facility] CPT-80106 Level 4 Est. Patient 11:15:54 CDT Nettie Rohith [facility] CPT-20903 Level 3 Est. Patient 16:42:24 CDT Harinder Cr [facility] CPT-65999 Level 3 Est. Patient 15:03:36 CDT Harinder Cr [facility] CPT-55557 Level 3 Est. Patient 15:03:20 CDT Harinder Cr [facility] CPT-82766 Level 3 Est. Patient 12:14:34 CDT Harinder Cr [facility] CPT-26527 Level 3 Est. Patient 13:47:15 CDT Harinder Cr [facility] CPT-39576 Level 3 Est. Patient 14:08:24 CDT Harinder Cr [facility] CPT-51828 Level 3 Est. Patient 10:07:15 CDT Harinder Hernandez [facility] CPT-11619 Level 3 Est. Patient 10:06:59 CDT Harinder Hernandez [facility] CPT-19089 Level 3 Est. Patient 15:53:29 CDT Jae Morgan MD [facility] CPT-58259 Level 3 Est. Patient 17:19:04 CDT Harinder Shaye David [facility] CPT-87461 Level 3 Est. Patient 11:13:01 CDT Harinder Hernandez [facility] CPT-93258 Level 3 Est. Patient 09:03:58 CDT Harinder Hernandez [facility] CPT-46404 Level 3 Est. 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 Patient 09:35:49 SHEETER MACHINE OPERATOR Harinder Hernandez [facility] CPT-99376 Level 3 Est. Patient 09:29:37 SHEETER MACHINE OPERATOR Harinder Hernandez [facility] CPT-27883 Level 3 Est. Patient 15:51:07 CDT Harinder Hernandez [facility] CPT-47414 Level 3 Est. Patient 18:13:13 CDT Harinder Hernandez [facility] CPT-19304 Level 3 Est. Patient 10:44:19 CDT Harinder Hernandez [facility] CPT-95629 Level 4 Est. Patient 10:07:19 SHEETER MACHINE OPERATOR Harinder Cr [facility] CPT-73233 Level 3 Est. 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 Harinder Hernandez [facility] Procedures Code Procedure Name Date Entry Date Standard Description CPT-72723 Abd compl w upright - XRAY USE ONLY 14:48:09 CDT 02/18 CPT-02247 Port a cath flush 13:46:05 CDT CPT-50494 Hip, complete, 2-3 views - XRAY USE ONLY 10:28:40 CDT CPT-34452 BMP - LAB USE ONLY 16:45:09 SHEETER MACHINE OPERATOR CPT-70379 Port a cath flush 12:00:13 SHEETER MACHINE OPERATOR CPT-TCMM Transitional Care Mgmt-Moderate 11:20:16 SHEETER MACHINE OPERATOR CPT-02941 First Vx - Ix admin for Medicare patients 17:35:15 CDT CPT-23153 Fluzone Preservative Free Intramuscular Suspension 17:35 :15 CDT CPT-24791 Microalbumin - LAB USE ONLY 11:52:05 CDT CPT-TCMM Transitional Care Mgmt-Moderate 11:33:57 CDT CPT-37754 No Charge Offi Visit 14:11:29 CDT CPT-89607 Magnesium - LAB USE ONLY 10:45:44 CDT CPT-30677 Lipid - LAB USE ONLY 10:45:44 CDT CPT-72975 CBC - LAB USE ONLY 10:45:44 CDT CPT-67303 Venipuncture Draw Fee 10:45:43 CDT CPT-52053 Venipuncture Draw Fee 18:21:27 CDT CPT-JTINJ Asp/Joint Injection 18:38:04 CDT CPT-53875 Immunization Each Additional Inj 17:38:04 CDT CPT-46912 Immunization Single Admin 17:38:04 CDT CPT-56425 Prevnar 13 17:38:04 CDT CPT-57053 Fluzone Quadrivalent preservative free (>=3yrs.) 17:38: 04 CDT CPT-54946 No Charge Offi Visit 11:14:03 CDT CPT-68803 Chest 2V Frontal and Lat 14:00:18 CDT CPT-OV Office Visit 16:10:28 CDT CPT-JTINJ Asp/Joint Injection 09:03:57 CDT CPT-Cryo Cryotherapy 09:35:49 SHEETER MACHINE OPERATOR CPT-JTINJ Asp/Joint Injection 09:34:45 SHEETER MACHINE OPERATOR CPT-J2930 Solu Medrol 125 mg (Methyl Prednisolone Sodium Succinate) 20:37:27 CDT CPT-02177 Abx/Therapy Injection 20:37:27 CDT CPT-11860 Port a cath flush 08:15:51 CDT CPT-33655 Port a cath flush 09:54:16 CDT CPT-76033 Port a cath flush 09:38:02 CDT CPT-40678 Port a cath flush 11:00:27 SHEETER MACHINE OPERATOR
--- OUTSIDE RECORDS SUMMARY | 2017-12-29 03:56 | XMS REPORT | Clinical Summary ---
Author Author Admin, QIE Organization [facility] [employer] Address Unknown Phone Unavailable Allergies, Adverse Reactions, [...] Harinder Hernandez DO DOXYCYCLINE Critical Active Harinder Hernadnez DO CODEINE Critical Active Harinder Hernandez DO [...] + D3 TABLET CALCIUM CARBONATE-VITAMIN D TABS 76925785335 Active Meenu Alejo LPN Active SPIRONOLACTONE 25 MG ORAL TABLET 1 tablet by mouth daily SPIRONOLACTONE 37231591487 No Longer Active Jeri Nieto Active PREDNISONE 20 MG ORAL TABLET 2 tablets by mouth today, then 1 tablet by mouth days 2-3 PREDNISONE 06781572652 No Longer Active Jeri Nieto Active NITROSTAT 0.4 MG SUBLINGUAL TABLET SUBLINGUAL 1 tab SL q5min PRN chest pain NITROGLYCERIN 22664863184 Active Meenu Alejo LPN Active THEOPHYLLINE ER 300 MG ORAL TABLET EXTENDED RELEASE 12 HOUR 1 po BID THEOPHYLLINE 33251114873 Active Kortney Mccain Active POTASSIUM CHLORIDE ER 20 MEQ ORAL TABLET EXTENDED RELEASE 1 po q day POTASSIUM CHLORIDE 97065799501 Active Kortney Mccain Active POTASSIUM CHLORIDE 20 MEQ ORAL PACKET 1 tab po q day POTASSIUM CHLORIDE 06277313550 No Longer Active Kortney Mccain Active POTASSIUM CHLORIDE ER 10 MEQ ORAL CAPSULE EXTENDED RELEASE 1 capsule BID 2016 POTASSIUM CHLORIDE 01755252190 No Longer Active Kortney Mccain Active LASIX 20 MG ORAL TABLET 1 tablet by mouth every morning FUROSEMIDE 90314981946 No Longer Active Kortney Mccain Active FLUOXETINE HCL 10 MG ORAL CAPSULE 1 po qd for depression/anxiety FLUOXETINE HCL 65767197986 Active Meenu Alejo LPN Active VOLTAREN 1 % TRANSDERMAL GEL apply q 6-8 hour to left arm as needed for pain DICLOFENAC SODIUM 21169238572 Active Kortney Mccain Active ALBUTEROL SULFATE (2.5 MG/3ML) 0.083% INHALATION NEBULIZATION SOLUTION 1 vial neb q 4hrs for severe asthma. 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 NIFEDIPINE 79144083502 Active Kortney Mccain Active AMLODIPINE BESYLATE 5 MG ORAL TABLET 1 tablet by mouth daily 2016 AMLODIPINE BESYLATE 99100859474 No Longer Active Harinder Hernandez DO Active TOPAMAX 25 MG ORAL TABLET 1 tab po BID TOPIRAMATE 39515187881 Active Kortney Mccain Active FLUTICASONE PROPIONATE 50 MCG/ACT NASAL SUSPENSION 2 sprays per nostril daily PRN Allergies FLUTICASONE PROPIONATE 24875481788 Active Meenu Alejo LPN Active NIFEDIPINE ER 30 MG ORAL TABLET EXTENDED RELEASE 24 HOUR 1 daily NIFEDIPINE 07630970028 No Longer Active Harinder Hernandez DO Active FLOVENT HFA 110 MCG/ACT INHALATION AEROSOL 2 puffs inhaled b.i.d. FLUTICASONE PROPIONATE HFA 43664645187 Active Harinder Hernandez DO Active EPIPEN 2-BRUNA 0.3 MG/0.3ML INJECTION SOLUTION AUTO-INJECTOR 1 INJ NEEDED EPINEPHRINE 57470131722 Active Meenu Alejo LPN Active PREDNISONE 20 MG ORAL TABLET 1 tab twice daily for 3 day, then one daily for three days PREDNISONE 49413175904 No Longer Active Harinder Hernandez DO Active PREDNISONE 20 MG ORAL TABLET 1 tablet twice daily for 2 days, then 1 tablet once daily for 2 days PREDNISONE 12141896882 No Longer Active Harinder Hernandez DO Active ASMANEX 120 METERED DOSES 220 MCG/INH INHALATION AEROSOL POWDER BREATH ACTIVATED 2 puffs orally twice daily MOMETASONE FUROATE 19571329709 Active Jeri Sosa LPN Active TOPIRAMATE 25 MG ORAL TABLET 1 tab po BID TOPIRAMATE 61991510813 No Longer Active Nettie Newberry APRN Active AMLODIPINE BESYLATE 5 MG ORAL TABLET Take 1 tab po daily AMLODIPINE BESYLATE 13535035710 No Longer Active Nettie Newberry APRN Active MECLIZINE HCL 25 MG ORAL TABLET 1 tablet three times daily for 3 days, then 1/ 2 tab three times daily for 3 days. MECLIZINE HCL 09389170346 No Longer Active Nettie Newberry APRN Active AMITRIPTYLINE HCL 25 MG ORAL TABLET 1 q hs prn AMITRIPTYLINE HCL 18925104310 No Longer Active Nettie Newberry APRN Active DILAUDID 2 MG ORAL TABLET Take 1/2 tab po every 4 hours as needed for pain HYDROMORPHONE HCL 16401981331 No Longer Active Nettie Newberry APRN Active CLOPIDOGREL BISULFATE 75 MG ORAL TABLET 1 tab by mouth once daily CLOPIDOGREL BISULFATE 30400753600 Active Meenu Alejo LPN Active ATORVASTATIN CALCIUM 10 MG ORAL TABLET 1 at bedtime ATORVASTATIN CALCIUM 32032459708 Active Kortney Mccain Active LOVASTATIN 40 MG ORAL TABLET Take 1 tab po every hs LOVASTATIN 91942805244 No Longer Active Harinder Hernandez DO Active PREDNISONE 20 MG ORAL TABLET 2 tabs daily for 4 days, 1 tab daily for 4 days, 1/2 tab daily for 4 days PREDNISONE 48429317774 No Longer Active Harinder Hernandez DO Active LEVAQUIN 500 MG ORAL TABLET Take 1 tab po daily x 8 days LEVOFLOXACIN 47166227765 No Longer Active Harinder Hernandez DO Active VENTOLIN HFA 108 (90 Base) MCG/ACT INHALATION AEROSOL SOLUTION 2 -4 puffs four times a day PRN ALBUTEROL SULFATE 57234312150 No Longer Active Jeri Sosa LPN Active ACEBUTOLOL HCL 200 MG ORAL CAPSULE 1 cap in the morning and 2 caps in the evening ACEBUTOLOL HCL 37509922058 No Longer Active Harinder Hernandez DO Active CEFDINIR 300 MG ORAL CAPSULE take 1 cap po bid x 10 days CEFDINIR 29885656157 No Longer Active Harinder Hernandez DO Active LOVASTATIN 40 MG ORAL TABLET 1 pill by mouth nightly for cholesterol LOVASTATIN 40776914174 No Longer Active Nettie Newberry APRN Active NITROSTAT 0.4 MG SUBLINGUAL TABLET SUBLINGUAL 1 tab under tongueas needed for chest pain ( may take 3 total, 5 min apart, then call 911) NITROGLYCERIN 50261617269 No Longer Active Nettie Newberry APRN Active POTASSIUM CHLORIDE ER 10 MEQ ORAL CAPSULE EXTENDED RELEASE 1 capsule by mouth daily POTASSIUM CHLORIDE 39926581326 No Longer Active Nettie Newberry APRN Active TESSALON PERLES 100 MG ORAL CAPSULE 1 to 2 tablets by mouth 3 times daily as needed for cough BENZONATATE 75880392177 No Longer Active Nettie Newberry APRN Active PREDNISONE 20 MG ORAL TABLET 2 po qd x 5 days PREDNISONE 81646288037 No Longer Active Jae Morgan MD Active AZITHROMYCIN 250 MG ORAL TABLET 2 po qd x 1 day, then 1 po qd x 4 days 12/30 AZITHROMYCIN 20961339642 No Longer Active Jae Morgan MD Active PREDNISONE 20 MG ORAL TABLET 1 tab twice daily for 3 day, then one daily for three days PREDNISONE 70852494806 No Longer Active Jae Morgan MD Active SINGULAIR 10 MG ORAL TABLET 1 pill by mouth every evening for breathing. 2014 MONTELUKAST SODIUM 22228680331 Active Meenu Alejo LPN Active TYLENOL 325 MG ORAL TABLET 3 by mouth q4h as needed ACETAMINOPHEN 01820973326 Active Harinder Hernandez DO Active POTASSIUM CHLORIDE ER 10 MEQ ORAL TABLET EXTENDED RELEASE take 1 tab po daily POTASSIUM CHLORIDE 97348810198 No Longer Active Harinder Hernandez DO Active PREDNISONE 20 MG ORAL TABLET 1 TID x 2 days, then 1 BID x 3 days, then 1 Daily x 3 days, then stop PREDNISONE 81237548856 No Longer Active Jillina Fradankl PUBLICATIONS INSPECTOR Active LEVAQUIN 500 MG ORAL TABLET 1 tablet by mouth daily LEVOFLOXACIN 28170449618 No Longer Active Jillina Frazell PUBLICATIONS INSPECTOR Active NEURONTIN 300 MG ORAL CAPSULE 1 cap by mouth three times daily for restless leg GABAPENTIN 60438866035 No Longer Active Harinder Hernandez DO Active BENZONATATE 100 MG ORAL CAPSULE 1 cap po TID PRN BENZONATATE 00159752336 No Longer Active Harinder Hernandez DO Active MONTELUKAST SODIUM 10 MG ORAL TABLET 1 tab po in the evening 2014 MONTELUKAST SODIUM 46570395426 No Longer Active Harinder Hernandez DO Active MUPIROCIN 2 % EXTERNAL OINTMENT apply to affected area BID x 14 days MUPIROCIN 37439850970 No Longer Active Harinder Hernandez DO Active TYLENOL EXTRA STRENGTH 500 MG ORAL TABLET as needed ACETAMINOPHEN 27453586251 No Longer Active Harinder Hernandez DO Active PREDNISONE 10 MG ORAL TABLET 1 tab po daily PREDNISONE 64852010633 No Longer Active Harinder Hernandez DO Active PREDNISONE 20 MG ORAL TABLET 2 tabs daily for 4 days, 1 tab daily for 4 days, 1/2 tab daily for 4 days PREDNISONE 39401466936 No Longer Active Harinder Hernandez DO Active AZITHROMYCIN 250 MG ORAL TABLET 2 po qd x 1 day, then 1 po qd x 4 days 04/06 AZITHROMYCIN 24099098232 No Longer Active Harinder Hernandez DO Active PREDNISONE 20 MG ORAL TABLET 3 tabs today, then 1 tab twice daily for 3 day, then one daily for three days PREDNISONE 80301455696 No Longer Active Harinder Hernandez DO Active NIFEDIAC CC 30 MG ORAL TABLET EXTENDED RELEASE 24 HOUR 1 tablet daily for raynaud's syndrome NIFEDIPINE 33371915222 No Longer Active Tawnya Pardo MA Active AMBIEN 10 MG ORAL TABLET 1/2 tab by mouth at bedtime as needed for sleep 2013 ZOLPIDEM TARTRATE 43303764424 Active Meenu Alejo LPN Active CLONAZEPAM 1 MG ORAL TABLET 1 tablet at bedtime for insomnia and restless legs CLONAZEPAM 88567838410 Active Meenu Alejo LPN Active CLONAZEPAM 0.5 MG ORAL TABLET 1 tab po daily CLONAZEPAM 46735709653 No Longer Active Harinder Hernandez DO Active PREDNISONE 10 MG ORAL TABLET 1 tablet daily for COPD PREDNISONE 16790344184 Active Kortney Mccain Active PROAIR HFA 108 (90 Base) MCG/ACT INHALATION AEROSOL SOLUTION 2 puffs four times a day as needed ALBUTEROL SULFATE 00548547979 Active Harinder Hernandez DO Active FLOVENT HFA 110 MCG/ACT INHALATION AEROSOL 2 puffs inhaled b.i.d. FLUTICASONE PROPIONATE HFA 71973556060 Active Kortney Mccain Active ACIPHEX 20 MG ORAL TABLET DELAYED RELEASE 1 tab po daily RABEPRAZOLE SODIUM 63071287214 Active Meenu Alejo LPN Active CLONAZEPAM 0.5 MG ORAL TABLET 1 tab po daily CLONAZEPAM 0.5 MG ORAL TABLET 454826 CLONAZEPAM Inactive PREDNISONE 20 MG ORAL TABLET 3 tabs today, then 1 tab twice daily for 3 day, then one daily for three days PREDNISONE 20 MG ORAL TABLET 372206 PREDNISONE Inactive PREDNISONE 20 MG ORAL TABLET 2 tabs daily for 4 days, 1 tab daily for 4 days, 1/2 tab daily for 4 days PREDNISONE 20 MG ORAL TABLET 780522 PREDNISONE Inactive PREDNISONE 10 MG ORAL TABLET 1 tab po daily PREDNISONE 10 MG ORAL TABLET 147009 PREDNISONE Inactive TYLENOL EXTRA STRENGTH 500 MG ORAL TABLET as needed TYLENOL EXTRA STRENGTH 500 MG ORAL TABLET 627962 ACETAMINOPHEN Inactive MUPIROCIN 2 % EXTERNAL OINTMENT apply to affected area BID x 14 days MUPIROCIN 2 % EXTERNAL OINTMENT 599636 MUPIROCIN Inactive MONTELUKAST SODIUM 10 MG ORAL TABLET 1 tab po in the evening 2014 MONTELUKAST SODIUM 10 MG ORAL TABLET 737284 MONTELUKAST SODIUM Inactive BENZONATATE 100 MG ORAL CAPSULE 1 cap po TID PRN BENZONATATE 100 MG ORAL CAPSULE 036590 BENZONATATE Inactive NEURONTIN 300 MG ORAL CAPSULE 1 cap by mouth three times daily for restless leg NEURONTIN 300 MG ORAL CAPSULE 927231 GABAPENTIN Inactive LEVAQUIN 500 MG ORAL TABLET 1 tablet by mouth daily LEVAQUIN 500 MG ORAL TABLET 235178 LEVOFLOXACIN Inactive PREDNISONE 20 MG ORAL TABLET 1 TID x 2 days, then 1 BID x 3 days, then 1 Daily x 3 days, then stop PREDNISONE 20 MG ORAL TABLET 159305 PREDNISONE Inactive POTASSIUM CHLORIDE ER 10 MEQ ORAL TABLET EXTENDED RELEASE take 1 tab po daily POTASSIUM CHLORIDE ER 10 MEQ ORAL TABLET EXTENDED RELEASE POTASSIUM CHLORIDE Inactive PREDNISONE 20 MG ORAL TABLET 1 tab twice daily for 3 day, then one daily for three days PREDNISONE 20 MG ORAL TABLET 105404 PREDNISONE Inactive TESSALON PERLES 100 MG ORAL CAPSULE 1 to 2 tablets by mouth 3 times daily as needed for cough TESSALON PERLES 100 MG ORAL CAPSULE 811245 BENZONATATE Inactive POTASSIUM CHLORIDE ER 10 MEQ ORAL CAPSULE EXTENDED RELEASE 1 capsule by mouth daily POTASSIUM CHLORIDE ER 10 MEQ ORAL CAPSULE EXTENDED RELEASE POTASSIUM CHLORIDE Inactive NITROSTAT 0.4 MG SUBLINGUAL TABLET SUBLINGUAL 1 tab under tongueas needed for chest pain ( may take 3 total, 5 min apart, then call 911) NITROSTAT 0.4 MG SUBLINGUAL TABLET SUBLINGUAL 548206 NITROGLYCERIN Inactive LOVASTATIN 40 MG ORAL TABLET 1 pill by mouth nightly for cholesterol LOVASTATIN 40 MG ORAL TABLET 191899 LOVASTATIN Inactive CEFDINIR 300 MG ORAL CAPSULE take 1 cap po bid x 10 days CEFDINIR 300 MG ORAL CAPSULE 950812 CEFDINIR Inactive ACEBUTOLOL HCL 200 MG ORAL CAPSULE 1 cap in the morning and 2 caps in the evening ACEBUTOLOL HCL 200 MG ORAL CAPSULE 289999 ACEBUTOLOL HCL Inactive VENTOLIN HFA 108 (90 Base) MCG/ACT INHALATION AEROSOL SOLUTION 2 -4 puffs four times a day PRN VENTOLIN HFA 108 (90 Base) MCG/ ACT INHALATION AEROSOL SOLUTION ALBUTEROL SULFATE Inactive LEVAQUIN 500 MG ORAL TABLET Take 1 tab po daily x 8 days LEVAQUIN 500 MG ORAL TABLET 994810 LEVOFLOXACIN Inactive PREDNISONE 20 MG ORAL TABLET 2 tabs daily for 4 days, 1 tab daily for 4 days, 1/2 tab daily for 4 days PREDNISONE 20 MG ORAL TABLET 325717 PREDNISONE Inactive LOVASTATIN 40 MG ORAL TABLET Take 1 tab po every hs LOVASTATIN 40 MG ORAL TABLET 734628 LOVASTATIN Inactive DILAUDID 2 MG ORAL TABLET Take 1/2 tab po every 4 hours as needed for pain DILAUDID 2 MG ORAL TABLET 831005 HYDROMORPHONE HCL Inactive AMITRIPTYLINE HCL 25 MG ORAL TABLET 1 q hs prn AMITRIPTYLINE HCL 25 MG ORAL TABLET 943259 AMITRIPTYLINE HCL Inactive MECLIZINE HCL 25 MG ORAL TABLET 1 tablet three times daily for 3 days, then 1/ 2 tab three times daily for 3 days. MECLIZINE HCL 25 MG ORAL TABLET 790635 MECLIZINE HCL Inactive AMLODIPINE BESYLATE 5 MG ORAL TABLET Take 1 tab po daily AMLODIPINE BESYLATE 5 MG ORAL TABLET 595965 AMLODIPINE BESYLATE Inactive TOPIRAMATE 25 MG ORAL TABLET 1 tab po BID TOPIRAMATE 25 MG ORAL TABLET 373662 TOPIRAMATE Inactive PREDNISONE 20 MG ORAL TABLET 1 tablet twice daily for 2 days, then 1 tablet once daily for 2 days PREDNISONE 20 MG ORAL TABLET 136558 PREDNISONE Inactive PREDNISONE 20 MG ORAL TABLET 1 tab twice daily for 3 day, then one daily for three days PREDNISONE 20 MG ORAL TABLET 637816 PREDNISONE Inactive NIFEDIPINE ER 30 MG ORAL TABLET EXTENDED RELEASE 24 HOUR 1 daily NIFEDIPINE ER 30 MG ORAL TABLET EXTENDED RELEASE 24 HOUR NIFEDIPINE Inactive AMLODIPINE BESYLATE 5 MG ORAL TABLET 1 tablet by mouth daily 2016 AMLODIPINE BESYLATE 5 MG ORAL TABLET 038693 AMLODIPINE BESYLATE Inactive LASIX 20 MG ORAL TABLET 1 tablet by mouth every morning LASIX 20 MG ORAL TABLET 252878 FUROSEMIDE Inactive POTASSIUM CHLORIDE ER 10 MEQ ORAL CAPSULE EXTENDED RELEASE 1 capsule BID 2016 POTASSIUM CHLORIDE ER 10 MEQ ORAL CAPSULE EXTENDED RELEASE POTASSIUM CHLORIDE Inactive POTASSIUM CHLORIDE 20 MEQ ORAL PACKET 1 tab po q day POTASSIUM CHLORIDE 20 MEQ ORAL PACKET 3080270 POTASSIUM CHLORIDE Inactive PREDNISONE 20 MG ORAL TABLET 2 tablets by mouth today, then 1 tablet by mouth days 2-3 PREDNISONE 20 MG ORAL TABLET 245992 PREDNISONE Inactive SPIRONOLACTONE 25 MG ORAL TABLET 1 tablet by mouth daily SPIRONOLACTONE 25 MG ORAL TABLET 988106 SPIRONOLACTONE Inactive AZITHROMYCIN 250 MG ORAL TABLET 2 po qd x 1 day, then 1 po qd x 4 days 04/06 AZITHROMYCIN 250 MG ORAL TABLET 183864 AZITHROMYCIN Inactive AZITHROMYCIN 250 MG ORAL TABLET 2 po qd x 1 day, then 1 po qd x 4 days 12/30 AZITHROMYCIN 250 MG ORAL TABLET 689980 AZITHROMYCIN Inactive PREDNISONE 20 MG ORAL TABLET 2 po qd x 5 days PREDNISONE 20 MG ORAL TABLET 616135 PREDNISONE Inactive Vital Signs Date Name Value [...] Panel - Chemistry sodium, serum 140 mmol/L 023-235 6115/07/13 potassium, serum 3.2 mmol/L 3.5-5.2 chloride, serum 103 mmol/L 98-107 carbon dioxide, venous blood 26.9 mmol/L 21.0-32.0 blood glucose 93 mg/dL 65-110 calcium, serum 9.2 mg/dL 8.5-10.1 urea nitrogen, blood 13 mg/dL 7-18 creatinine, serum 0.84 mg/dL 0.60-1.30 sodium, serum 140 mmol/L 569-836 7338/08/21 potassium, serum 3.8 mmol/L 3.5-5.2 chloride, serum [...] ... - Chemistry sodium, serum 141 mmol/L 189-991 6407/08/07 carbon dioxide, venous blood 34.0 mmol/L 21.0-32.0 [...] 1.40 mg/dL 0.00-1.00 cholesterol, serum 192 mg/dL 095-752 1940/10/19 triglyceride, serum, fasting 71 mg/dL 30-200 HDL cholesterol, serum 72 mg/dL 32-60 LDL cholesterol, serum 106 mg/dL 0-130 Lab Report: Rapid Strep - Lab Microbial identification kit, rapid strep method Negative Negative Lab Report: THEOPHYLLINE - Toxicology theophylline level, serum 3.1 ug/mL 10.0-20.0 Encounters Code Encounter Date Provider Facility CPT-79646 Level 4 Est. Patient 10:17:51 PASSENGER RELATIONS REPRESENTATIVE Harinder Cr [facility] CPT-07603 Level 3 Est. Patient 12:36:15 PASSENGER RELATIONS REPRESENTATIVE Harinder Cr [facility] CPT-00793 Level 3 Est. Patient 15:14:45 PASSENGER RELATIONS REPRESENTATIVE Harinder Cr [facility] CPT-52367 Level 4 Est. Patient 14:45:25 CDT Harinder Cr [facility] CPT-51236 Level 4 Est. Patient 09:15:13 CDT Harinder Shaye [facility] CPT-97897 Level 3 Est. Patient 11:51:58 CDT Harinder Shaye [facility] CPT-63541 Level 3 Est. Patient 11:30:05 CDT Harinder Cr [facility] CPT-15320 Level 4 Est. Patient 10:19:23 CDT Harinder Cr [facility] CPT-68804 Level 3 Est. Patient 09:58:58 CDT Harinder Hernandez [facility] CPT-52799 Level 3 Est. Patient 12:37:21 CDT Harinder Cr [facility] CPT-38519 Level 3 Est. Patient 18:37:17 CDT Harinder Hernandez [facility] CPT-60875 Level 4 Est. Patient 11:15:54 CDT Nettie King [facility] CPT-83386 Level 3 Est. Patient 16:42:24 CDT Harinder Cr [facility] CPT-26149 Level 3 Est. Patient 15:03:36 CDT Harinder Cr [facility] CPT-73679 Level 3 Est. Patient 15:03:20 CDT Harinder Cr [facility] CPT-57966 Level 3 Est. Patient 12:14:34 CDT Harinder Hernandez [facility] CPT-43832 Level 3 Est. Patient 13:47:15 CDT Harinder Cr [facility] CPT-68415 Level 3 Est. Patient 14:08:24 CDT Harinder Hernandez [facility] CPT-85574 Level 3 Est. Patient 10:07:15 CDT Harinder Cr David [facility] CPT-23502 Level 3 Est. Patient 10:06:59 CDT Harinder Cr [facility] CPT-94956 Level 3 Est. Patient 15:53:29 CDT Jae Morgan [facility] CPT-42848 Level 3 Est. Patient 17:19:04 CDT Harinder rC [facility] CPT-06884 Level 3 Est. Patient 11:13:01 CDT Harinder Cr [facility] CPT-27842 Level 3 Est. Patient 09:03:58 CDT Harinder W [facility] CPT-56638 Level 3 Est. Patient 14:46:45 PASSENGER RELATIONS REPRESENTATIVE Harinder Hernandez [facility] CPT-82776 Level 3 Est. Patient 09:35:49 PASSENGER RELATIONS REPRESENTATIVE Harinder Hernandez [facility] CPT-72563 Level 3 Est. Patient 09:29:37 PASSENGER RELATIONS REPRESENTATIVE Harinder Hernandez [facility] CPT-37584 Level 3 Est. Patient 15:51:07 CDT Harinder Hernandez [facility] CPT-19950 Level 3 Est. Patient 18:13:13 CDT Harinder Hernandez [facility] CPT-87145 Level 3 Est. Patient 10:44:19 CDT Harinder Hernandez [facility] CPT-14431 Level 4 Est. Patient 10:07:19 PASSENGER RELATIONS REPRESENTATIVE Harinder Hernandez [facility] CPT-00907 Level 3 Est. Patient 15:59:32 PASSENGER RELATIONS REPRESENTATIVE Harinder Hernandez [facility] Procedures Code Procedure Name Date Entry Date Standard Description CPT-22715 Bone Density - XRAY USE ONLY 14:43:42 CDT CPT-G0009 Administration of Pneumococcal Vaccine 10:33:25 PASSENGER RELATIONS REPRESENTATIVE CPT-29449 Pneumovax 23 Injection Injectable 25 MCG/0.5ML 10:33:25 PASSENGER RELATIONS REPRESENTATIVE CPT-27169 First Vx - Ix admin for Medicare patients 10:33:25 PASSENGER RELATIONS REPRESENTATIVE CPT-56922 Fluzone Quadrivalent Intramuscular Suspension 0.5 ML 10: 33:25 PASSENGER RELATIONS REPRESENTATIVE CPT-Cryo Cryotherapy 10:17:51 PASSENGER RELATIONS REPRESENTATIVE CPT-G0438 Initial Annual Wellness Exam 10:08:59 PASSENGER RELATIONS REPRESENTATIVE CPT-28482 Abd compl w upright - XRAY USE ONLY 14:48:09 CDT 02/18 CPT-96881 Port a cath flush 13:46:05 CDT CPT-72557 Hip, complete, 2-3 views - XRAY USE ONLY 10:28:40 CDT CPT-36760 BMP - LAB USE ONLY 16:45:09 PASSENGER RELATIONS REPRESENTATIVE CPT-83233 Port a cath flush 12:00:13 PASSENGER RELATIONS REPRESENTATIVE CPT-TCMM Transitional Care Mgmt-Moderate 11:20:16 PASSENGER RELATIONS REPRESENTATIVE CPT-24344 First Vx - Ix admin for Medicare patients 17:35:15 CDT CPT-17448 Fluzone Preservative Free Intramuscular Suspension 17:35 :15 CDT CPT-53381 Microalbumin - LAB USE ONLY 11:52:05 CDT CPT-TCMM Transitional Care Mgmt-Moderate 11:33:57 CDT CPT-70856 No Charge Offi Visit 14:11:29 CDT CPT-66045 Magnesium - LAB USE ONLY 10:45:44 CDT CPT-45852 Lipid - LAB USE ONLY 10:45:44 CDT CPT-59079 CBC - LAB USE ONLY 10:45:44 CDT CPT-69818 Venipuncture Draw Fee 10:45:43 CDT CPT-61599 Venipuncture Draw Fee 18:21:27 CDT CPT-JTINJ Asp/Joint Injection 18:38:04 CDT CPT-52543 Immunization Each Additional Inj 17:38:04 CDT CPT-10449 Immunization Single Admin 17:38:04 CDT CPT-35208 Prevnar 13 17:38:04 CDT CPT-34916 Fluzone Quadrivalent preservative free (>=3yrs.) 17:38: 04 CDT CPT-60172 No Charge Offi Visit 11:14:03 CDT CPT-29930 Chest 2V Frontal and Lat 14:00:18 CDT CPT-OV Office Visit 16:10:28 CDT CPT-JTINJ Asp/Joint Injection 09:03:57 CDT CPT-Cryo Cryotherapy 09:35:49 PASSENGER RELATIONS REPRESENTATIVE CPT-JTINJ Asp/Joint Injection 09:34:45 PASSENGER RELATIONS REPRESENTATIVE CPT-J2930 Solu Medrol 125 mg (Methyl Prednisolone Sodium Succinate) 20:37:27 CDT CPT-90099 Abx/Therapy Injection 20:37:27 CDT CPT-49003 Port a cath flush 08:15:51 CDT CPT-43991 Port a cath flush 09:54:16 CDT CPT-68673 Port a cath flush 09:38:02 CDT CPT-32024 Port a cath flush 11:00:27 PASSENGER RELATIONS REPRESENTATIVE
--- OUTSIDE RECORDS SUMMARY | 2017-12-29 03:58 | XMS REPORT | Clinical Summary ---
Author Author Admin, QIE Organization [facility] Address Unknown Phone Unavailable Allergies, Adverse Reactions, Alerts Allergy Name Reaction Description Start Date Severity Status Provider VANCOMYCIN Critical Active Harinder Hernandez DO LEVAQUIN stomach upset, diarrhea, and itching Critical Active Harinder Hernandze DO AITHROMYCIN itch Moderate Active Harinder Hernandez [...] TABLET 1 tablet by mouth daily SPIRONOLACTONE [id number] No Longer Active Jeri Nieto Active PREDNISONE 20 MG ORAL TABLET 2 tablets by mouth today, then 1 tablet by mouth days 2-3 PREDNISONE 22509253596 No Longer Active Jeri Nieto Active NITROSTAT 0.4 MG SUBLINGUAL TABLET SUBLINGUAL 1 tab SL q5min PRN chest pain NITROGLYCERIN 96394493873 Active Meenu Alejo LPN Active THEOPHYLLINE ER 300 MG ORAL TABLET EXTENDED RELEASE 12 HOUR 1 po BID THEOPHYLLINE 60337018970 Active Kortney Mccain Active POTASSIUM CHLORIDE ER 20 MEQ ORAL TABLET EXTENDED RELEASE 1 po q day POTASSIUM CHLORIDE 98023661084 Active Kortney Mccain Active POTASSIUM CHLORIDE 20 MEQ ORAL PACKET 1 tab po q day POTASSIUM CHLORIDE 22412340211 No Longer Active Kortney Mccain Active POTASSIUM CHLORIDE ER 10 MEQ ORAL CAPSULE EXTENDED RELEASE 1 capsule BID 2016 POTASSIUM CHLORIDE 69317676488 No Longer Active Kortney Mccain Active LASIX 20 MG ORAL TABLET 1 tablet by mouth every morning FUROSEMIDE 72740509137 No Longer Active Kortney Mccain Active FLUOXETINE HCL 10 MG ORAL CAPSULE 1 po qd for depression/anxiety FLUOXETINE HCL 61919428128 Active Meenu Alejo LPN Active VOLTAREN 1 % TRANSDERMAL GEL apply q 6-8 hour to left arm as needed for pain DICLOFENAC SODIUM 14606150527 Active Kortney Mccain Active ALBUTEROL SULFATE (2.5 MG/3ML) 0.083% INHALATION NEBULIZATION SOLUTION 1 vial neb q 4hrs for severe asthma. 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 NIFEDIPINE 49672861199 Active Kortney Mccain Active AMLODIPINE BESYLATE 5 MG ORAL TABLET 1 tablet by mouth daily 2016 AMLODIPINE BESYLATE 66533289753 No Longer Active Harinder Hernandez DO Active TOPAMAX 25 MG ORAL TABLET 1 tab po BID TOPIRAMATE 12536958744 Active Kortney Mccain Active FLUTICASONE PROPIONATE 50 MCG/ACT NASAL SUSPENSION 2 sprays per nostril daily PRN Allergies FLUTICASONE PROPIONATE 41262061345 Active Meenu Alejo LPN Active NIFEDIPINE ER 30 MG ORAL TABLET EXTENDED RELEASE 24 HOUR 1 daily NIFEDIPINE 65990032565 No Longer Active Harinder Hernandez DO Active FLOVENT HFA 110 MCG/ACT INHALATION AEROSOL 2 puffs inhaled b.i.d. FLUTICASONE PROPIONATE HFA 38834674844 Active Harinder Hernandez DO Active EPIPEN 2-BRUNA 0.3 MG/0.3ML INJECTION SOLUTION AUTO-INJECTOR 1 INJ NEEDED EPINEPHRINE 30070526620 Active Meenu Alejo LPN Active PREDNISONE 20 MG ORAL TABLET 1 tab twice daily for 3 day, then one daily for three days PREDNISONE 10693531701 No Longer Active Harinder Hernandez DO Active PREDNISONE 20 MG ORAL TABLET 1 tablet twice daily for 2 days, then 1 tablet once daily for 2 days PREDNISONE 85423738068 No Longer Active Harinder Hernandez DO Active ASMANEX 120 METERED DOSES 220 MCG/INH INHALATION AEROSOL POWDER BREATH ACTIVATED 2 puffs orally twice daily MOMETASONE FUROATE 84492610896 Active Jeri Sosa LPN Active TOPIRAMATE 25 MG ORAL TABLET 1 tab po BID TOPIRAMATE 16350436492 No Longer Active Nettie Newberry APRN Active AMLODIPINE BESYLATE 5 MG ORAL TABLET Take 1 tab po daily AMLODIPINE BESYLATE 25375960912 No Longer Active Nettie Newberry APRN Active MECLIZINE HCL 25 MG ORAL TABLET 1 tablet three times daily for 3 days, then 1/ 2 tab three times daily for 3 days. MECLIZINE HCL 83838490192 No Longer Active Nettie Newberry APRN Active AMITRIPTYLINE HCL 25 MG ORAL TABLET 1 q hs prn AMITRIPTYLINE HCL 56589610312 No Longer Active Nettie Newberry APRN Active DILAUDID 2 MG ORAL TABLET Take 1/2 tab po every 4 hours as needed for pain HYDROMORPHONE HCL 68044441273 No Longer Active Nettie Newberry APRN Active CLOPIDOGREL BISULFATE 75 MG ORAL TABLET 1 tab by mouth once daily CLOPIDOGREL BISULFATE 16670545265 Active Meenu Alejo LPN Active ATORVASTATIN CALCIUM 10 MG ORAL TABLET 1 at bedtime ATORVASTATIN CALCIUM 36192426726 Active Kortney Mccain Active LOVASTATIN 40 MG ORAL TABLET Take 1 tab po every hs LOVASTATIN 15293687877 No Longer Active Harinder Hernandez DO Active PREDNISONE 20 MG ORAL TABLET 2 tabs daily for 4 days, 1 tab daily for 4 days, 1/2 tab daily for 4 days PREDNISONE 24413048330 No Longer Active Harinder Hernandez DO Active LEVAQUIN 500 MG ORAL TABLET Take 1 tab po daily x 8 days LEVOFLOXACIN 97230496039 No Longer Active Harinder Hernandez DO Active VENTOLIN HFA 108 (90 Base) MCG/ACT INHALATION AEROSOL SOLUTION 2 -4 puffs four times a day PRN ALBUTEROL SULFATE 10898648110 No Longer Active Jeri Sosa LPN Active ACEBUTOLOL HCL 200 MG ORAL CAPSULE 1 cap in the morning and 2 caps in the evening ACEBUTOLOL HCL 41051953563 No Longer Active Harinder Hernandez DO Active CEFDINIR 300 MG ORAL CAPSULE take 1 cap po bid x 10 days CEFDINIR 32306101875 No Longer Active Harinder Hernandez DO Active LOVASTATIN 40 MG ORAL TABLET 1 pill by mouth nightly for cholesterol LOVASTATIN 12457075648 No Longer Active Nettie Newberry APRN Active NITROSTAT 0.4 MG SUBLINGUAL TABLET SUBLINGUAL 1 tab under tongueas needed for chest pain ( may take 3 total, 5 min apart, then call 911) NITROGLYCERIN 09947233758 No Longer Active Nettie Newberry APRN Active POTASSIUM CHLORIDE ER 10 MEQ ORAL CAPSULE EXTENDED RELEASE 1 capsule by mouth daily POTASSIUM CHLORIDE 36440346042 No Longer Active Nettie Newberry APRN Active TESSALON PERLES 100 MG ORAL CAPSULE 1 to 2 tablets by mouth 3 times daily as needed for cough BENZONATATE 32954610213 No Longer Active Nettie Newberry APRN Active PREDNISONE 20 MG ORAL TABLET 2 po qd x 5 days PREDNISONE 66678724815 No Longer Active Jae Morgan MD Active AZITHROMYCIN 250 MG ORAL TABLET 2 po qd x 1 day, then 1 po qd x 4 days 12/30 AZITHROMYCIN 36311050261 No Longer Active Jae Morgan MD Active PREDNISONE 20 MG ORAL TABLET 1 tab twice daily for 3 day, then one daily for three days PREDNISONE 70049082161 No Longer Active Jae Morgan MD Active SINGULAIR 10 MG ORAL TABLET 1 pill by mouth every evening for breathing. 2014 MONTELUKAST SODIUM 11288524657 Active Meenu Alejo LPN Active TYLENOL 325 MG ORAL TABLET 3 by mouth q4h as needed ACETAMINOPHEN 99435759816 Active Harinder Hernandez DO Active POTASSIUM CHLORIDE ER 10 MEQ ORAL TABLET EXTENDED RELEASE take 1 tab po daily POTASSIUM CHLORIDE 16308309904 No Longer Active Harinder Hernandez DO Active PREDNISONE 20 MG ORAL TABLET 1 TID x 2 days, then 1 BID x 3 days, then 1 Daily x 3 days, then stop PREDNISONE 96762682254 No Longer Active Jillina Frazellor MCCRAY Active LEVAQUIN 500 MG ORAL TABLET 1 tablet by mouth daily LEVOFLOXACIN 68751318942 No Longer Active Jillina Frazell [employer]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 NEURONTIN 300 MG ORAL CAPSULE 1 cap by mouth three times daily for restless leg GABAPENTIN 40254817914 No Longer Active Harinder Heranndez DO Active BENZONATATE 100 MG ORAL CAPSULE 1 cap po TID PRN BENZONATATE 24984671381 No Longer Active Harinder Hernandez DO Active MONTELUKAST SODIUM 10 MG ORAL TABLET 1 tab po in the evening 2014 MONTELUKAST SODIUM 83969900589 No Longer Active Harinder Hernandez DO Active MUPIROCIN 2 % EXTERNAL OINTMENT apply to affected area BID x 14 days MUPIROCIN 49954060790 No Longer Active Harinder Hernandez DO Active TYLENOL EXTRA STRENGTH 500 MG ORAL TABLET as needed ACETAMINOPHEN 81241411981 No Longer Active Harinder Hernandez DO Active PREDNISONE 10 MG ORAL TABLET 1 tab po daily PREDNISONE 19265236547 No Longer Active Harinder Hernandez DO Active PREDNISONE 20 MG ORAL TABLET 2 tabs daily for 4 days, 1 tab daily for 4 days, 1/2 tab daily for 4 days PREDNISONE 03652097744 No Longer Active Harinder Hernandez DO Active AZITHROMYCIN 250 MG ORAL TABLET 2 po qd x 1 day, then 1 po qd x 4 days 04/06 AZITHROMYCIN 94560000157 No Longer Active Harinder Hernandez DO Active PREDNISONE 20 MG ORAL TABLET 3 tabs today, then 1 tab twice daily for 3 day, then one daily for three days PREDNISONE 61303600240 No Longer Active Harinder Hernandez DO Active NIFEDIAC CC 30 MG ORAL TABLET EXTENDED RELEASE 24 HOUR 1 tablet daily for raynaud's syndrome NIFEDIPINE 99086844024 No Longer Active Tawnya Pardo MA Active AMBIEN 10 MG ORAL TABLET 1/2 tab by mouth at bedtime as needed for sleep 2013 ZOLPIDEM TARTRATE 85015976721 Active Meenu Alejo LPN Active CLONAZEPAM 1 MG ORAL TABLET 1 tablet at bedtime for insomnia and restless legs CLONAZEPAM 11437815727 Active Meenu Alejo LPN Active CLONAZEPAM 0.5 MG ORAL TABLET 1 tab po daily CLONAZEPAM 80420571216 No Longer Active Harinder Hernandez DO Active PREDNISONE 10 MG ORAL TABLET 1 tablet daily for COPD PREDNISONE 76900902142 Active Kortney Mccain Active PROAIR HFA 108 (90 Base) MCG/ACT INHALATION AEROSOL SOLUTION 2 puffs four times a day as needed ALBUTEROL SULFATE 57512546628 Active Harinder Hernandez DO Active FLOVENT HFA 110 MCG/ACT INHALATION AEROSOL 2 puffs inhaled b.i.d. FLUTICASONE PROPIONATE HFA 72677758498 Active Kortney Mccain Active ACIPHEX 20 MG ORAL TABLET DELAYED RELEASE 1 tab po daily RABEPRAZOLE SODIUM 20625596447 Active Meenu Alejo LPN Active CLONAZEPAM 0.5 MG ORAL TABLET 1 tab po daily CLONAZEPAM 0.5 MG ORAL TABLET 963221 CLONAZEPAM Inactive PREDNISONE 20 MG ORAL TABLET 3 tabs today, then 1 tab twice daily for 3 day, then one daily for three days PREDNISONE 20 MG ORAL TABLET 912398 PREDNISONE Inactive PREDNISONE 20 MG ORAL TABLET 2 tabs daily for 4 days, 1 tab daily for 4 days, 1/2 tab daily for 4 days PREDNISONE 20 MG ORAL TABLET 103938 PREDNISONE Inactive PREDNISONE 10 MG ORAL TABLET 1 tab po daily PREDNISONE 10 MG ORAL TABLET 047138 PREDNISONE Inactive TYLENOL EXTRA STRENGTH 500 MG ORAL TABLET as needed TYLENOL EXTRA STRENGTH 500 MG ORAL TABLET 700175 ACETAMINOPHEN Inactive MUPIROCIN 2 % EXTERNAL OINTMENT apply to affected area BID x 14 days MUPIROCIN 2 % EXTERNAL OINTMENT 007570 MUPIROCIN Inactive MONTELUKAST SODIUM 10 MG ORAL TABLET 1 tab po in the evening 2014 MONTELUKAST SODIUM 10 MG ORAL TABLET 612027 MONTELUKAST SODIUM Inactive BENZONATATE 100 MG ORAL CAPSULE 1 cap po TID PRN BENZONATATE 100 MG ORAL CAPSULE 586701 BENZONATATE Inactive NEURONTIN 300 MG ORAL CAPSULE 1 cap by mouth three times daily for restless leg NEURONTIN 300 MG ORAL CAPSULE 186026 GABAPENTIN Inactive LEVAQUIN 500 MG ORAL TABLET 1 tablet by mouth daily LEVAQUIN 500 MG ORAL TABLET 072853 LEVOFLOXACIN Inactive PREDNISONE 20 MG ORAL TABLET 1 TID x 2 days, then 1 BID x 3 days, then 1 Daily x 3 days, then stop PREDNISONE 20 MG ORAL TABLET 912370 PREDNISONE Inactive POTASSIUM CHLORIDE ER 10 MEQ ORAL TABLET EXTENDED RELEASE take 1 tab po daily POTASSIUM CHLORIDE ER 10 MEQ ORAL TABLET EXTENDED RELEASE POTASSIUM CHLORIDE Inactive PREDNISONE 20 MG ORAL TABLET 1 tab twice daily for 3 day, then one daily for three days PREDNISONE 20 MG ORAL TABLET 621059 PREDNISONE Inactive TESSALON PERLES 100 MG ORAL CAPSULE 1 to 2 tablets by mouth 3 times daily as needed for cough TESSALON PERLES 100 MG ORAL CAPSULE 035930 BENZONATATE Inactive POTASSIUM CHLORIDE ER 10 MEQ ORAL CAPSULE EXTENDED RELEASE 1 capsule by mouth daily POTASSIUM CHLORIDE ER 10 MEQ ORAL CAPSULE EXTENDED RELEASE POTASSIUM CHLORIDE Inactive NITROSTAT 0.4 MG SUBLINGUAL TABLET SUBLINGUAL 1 tab under tongueas needed for chest pain ( may take 3 total, 5 min apart, then call 911) NITROSTAT 0.4 MG SUBLINGUAL TABLET SUBLINGUAL 789342 NITROGLYCERIN Inactive LOVASTATIN 40 MG ORAL TABLET 1 pill by mouth nightly for cholesterol LOVASTATIN 40 MG ORAL TABLET 182325 LOVASTATIN Inactive CEFDINIR 300 MG ORAL CAPSULE take 1 cap po bid x 10 days CEFDINIR 300 MG ORAL CAPSULE 007366 CEFDINIR Inactive ACEBUTOLOL HCL 200 MG ORAL CAPSULE 1 cap in the morning and 2 caps in the evening ACEBUTOLOL HCL 200 MG ORAL CAPSULE 392456 ACEBUTOLOL HCL Inactive VENTOLIN HFA 108 (90 Base) MCG/ACT INHALATION AEROSOL SOLUTION 2 -4 puffs four times a day PRN VENTOLIN HFA 108 (90 Base) MCG/ ACT INHALATION AEROSOL SOLUTION ALBUTEROL SULFATE Inactive LEVAQUIN 500 MG ORAL TABLET Take 1 tab po daily x 8 days LEVAQUIN 500 MG ORAL TABLET 678724 LEVOFLOXACIN Inactive PREDNISONE 20 MG ORAL TABLET 2 tabs daily for 4 days, 1 tab daily for 4 days, 1/2 tab daily for 4 days PREDNISONE 20 MG ORAL TABLET 156507 PREDNISONE Inactive LOVASTATIN 40 MG ORAL TABLET Take 1 tab po every hs LOVASTATIN 40 MG ORAL TABLET 915537 LOVASTATIN Inactive DILAUDID 2 MG ORAL TABLET Take 1/2 tab po every 4 hours as needed for pain DILAUDID 2 MG ORAL TABLET 095049 HYDROMORPHONE HCL Inactive AMITRIPTYLINE HCL 25 MG ORAL TABLET 1 q hs prn AMITRIPTYLINE HCL 25 MG ORAL TABLET 805003 AMITRIPTYLINE HCL Inactive MECLIZINE HCL 25 MG ORAL TABLET 1 tablet three times daily for 3 days, then 1/ 2 tab three times daily for 3 days. MECLIZINE HCL 25 MG ORAL TABLET 815404 MECLIZINE HCL Inactive AMLODIPINE BESYLATE 5 MG ORAL TABLET Take 1 tab po daily AMLODIPINE BESYLATE 5 MG ORAL TABLET 242518 AMLODIPINE BESYLATE Inactive TOPIRAMATE 25 MG ORAL TABLET 1 tab po BID TOPIRAMATE 25 MG ORAL TABLET 920923 TOPIRAMATE Inactive PREDNISONE 20 MG ORAL TABLET 1 tablet twice daily for 2 days, then 1 tablet once daily for 2 days PREDNISONE 20 MG ORAL TABLET 677524 PREDNISONE Inactive PREDNISONE 20 MG ORAL TABLET 1 tab twice daily for 3 day, then one daily for three days PREDNISONE 20 MG ORAL TABLET 642649 PREDNISONE Inactive NIFEDIPINE ER 30 MG ORAL TABLET EXTENDED RELEASE 24 HOUR 1 daily NIFEDIPINE ER 30 MG ORAL TABLET EXTENDED RELEASE 24 HOUR NIFEDIPINE Inactive AMLODIPINE BESYLATE 5 MG ORAL TABLET 1 tablet by mouth daily 2016 AMLODIPINE BESYLATE 5 MG ORAL TABLET 569128 AMLODIPINE BESYLATE Inactive LASIX 20 MG ORAL TABLET 1 tablet by mouth every morning LASIX 20 MG ORAL TABLET 751381 FUROSEMIDE Inactive POTASSIUM CHLORIDE ER 10 MEQ ORAL CAPSULE EXTENDED RELEASE 1 capsule BID 2016 POTASSIUM CHLORIDE ER 10 MEQ ORAL CAPSULE EXTENDED RELEASE POTASSIUM CHLORIDE Inactive POTASSIUM CHLORIDE 20 MEQ ORAL PACKET 1 tab po q day POTASSIUM CHLORIDE 20 MEQ ORAL PACKET 8950582 POTASSIUM CHLORIDE Inactive PREDNISONE 20 MG ORAL TABLET 2 tablets by mouth today, then 1 tablet by mouth days 2-3 PREDNISONE 20 MG ORAL TABLET 872934 PREDNISONE Inactive SPIRONOLACTONE 25 MG ORAL TABLET 1 tablet by mouth daily SPIRONOLACTONE 25 MG ORAL TABLET 526675 SPIRONOLACTONE Inactive AZITHROMYCIN 250 MG ORAL TABLET 2 po qd x 1 day, then 1 po qd x 4 days 04/06 AZITHROMYCIN 250 MG ORAL TABLET 227888 AZITHROMYCIN Inactive AZITHROMYCIN 250 MG ORAL TABLET 2 po qd x 1 day, then 1 po qd x 4 days 12/30 AZITHROMYCIN 250 MG ORAL TABLET 246985 AZITHROMYCIN Inactive PREDNISONE 20 MG ORAL TABLET 2 po qd x 5 days PREDNISONE 20 MG ORAL TABLET 579594 PREDNISONE Inactive Vital Signs Date Name Value [...] Panel - Chemistry sodium, serum 140 mmol/L 171-847 3344/07/13 potassium, serum 3.2 mmol/L 3.5-5.2 chloride, serum 103 mmol/L 98-107 carbon dioxide, venous blood 26.9 mmol/L 21.0-32.0 blood glucose 93 mg/dL 65-110 calcium, serum 9.2 mg/dL 8.5-10.1 urea nitrogen, blood 13 mg/dL 7-18 creatinine, serum 0.84 mg/dL 0.60-1.30 sodium, serum 140 mmol/L 325-915 7181/08/21 potassium, serum 3.8 mmol/L 3.5-5.2 chloride, serum [...] ... - Chemistry sodium, serum 141 mmol/L 008-205 0221/08/07 carbon dioxide, venous blood 34.0 mmol/L 21.0-32.0 [...] 1.40 mg/dL 0.00-1.00 cholesterol, serum 192 mg/dL 288-657 9265/10/19 triglyceride, serum, fasting 71 mg/dL 30-200 HDL cholesterol, serum 72 mg/dL 32-60 LDL cholesterol, serum 106 mg/dL 0-130 Lab Report: Rapid Strep - Lab Microbial identification kit, rapid strep method Negative Negative Lab Report: THEOPHYLLINE - Toxicology theophylline level, serum 3.1 ug/mL 10.0-20.0 Encounters Code Encounter Date Provider Facility CPT-10672 Level 4 Est. Patient 10:17:51 IDENTIFICATION CLERK Harinder Cr [facility] CPT-44208 Level 3 Est. Patient 12:36:15 IDENTIFICATION CLERK [facility] CPT-58599 Level 3 Est. Patient 15:14:45 IDENTIFICATION CLERK [facility] CPT-03612 Level 4 Est. Patient 14:45:25 CDT [facility] CPT-22966 Level 4 Est. Patient 09:15:13 CDT [facility] CPT-76629 Level 3 Est. Patient 11:51:58 CDT [facility] CPT-21169 Level 3 Est. Patient 11:30:05 CDT [facility] CPT-97402 Level 4 Est. Patient 10:19:23 CDT [facility] CPT-12955 Level 3 Est. Patient 09:58:58 CDT [facility] CPT-02386 Level 3 Est. Patient 12:37:21 CDT [facility] CPT-35427 Level 3 Est. Patient 18:37:17 CDT Harinder Hernandez [facility] CPT-51119 Level 4 Est. Patient 11:15:54 CDT Nettie Newberry APRN [facility] CPT-68080 Level 3 Est. Patient 16:42:24 CDT Harinder Hernandez [facility] CPT-86532 Level 3 Est. Patient 15:03:36 CDT Harinder Hernandez [facility] CPT-67041 Level 3 Est. Patient 15:03:20 CDT Harinder Hernandez [facility] CPT-65715 Level 3 Est. Patient 12:14:34 CDT Harinder Hernandez [facility] CPT-24631 Level 3 Est. Patient 13:47:15 CDT Harinder Hernandez [facility] CPT-21182 Level 3 Est. Patient 14:08:24 CDT Harinder Hernandez [facility] CPT-58480 Level 3 Est. Patient 10:07:15 CDT Harinder Hernandez [facility] CPT-01238 Level 3 Est. Patient 10:06:59 CDT Harinder Hernandez [facility] CPT-41813 Level 3 Est. Patient 15:53:29 CDT Jae Morgan MD [facility] CPT-29116 Level 3 Est. Patient 17:19:04 CDT Harinder Hernandez [facility] CPT-13856 Level 3 Est. Patient 11:13:01 CDT Harinder Shaye Hernandez [facility] CPT-99576 Level 3 Est. Patient 09:03:58 CDT Harinder Hernandez [facility] CPT-77445 Level 3 Est. Patient 14:46:45 IDENTIFICATION CLERK Harinder Cr David [facility] CPT-09917 Level 3 Est. Patient 09:35:49 IDENTIFICATION CLERK Harinder W [facility] CPT-65825 Level 3 Est. Patient 09:29:37 IDENTIFICATION CLERK Harinder Hernandez [facility] CPT-01105 Level 3 Est. Patient 15:51:07 CDT Harinder Hernandez [facility] CPT-57535 Level 3 Est. Patient 18:13:13 CDT Harinder Hernandez [facility] CPT-93296 Level 3 Est. Patient 10:44:19 CDT Harinder Hernandez [facility] CPT-89754 Level 4 Est. Patient 10:07:19 IDENTIFICATION CLERK [facility] Cr [facility] CPT-24760 Level 3 Est. Patient 15:59:32 IDENTIFICATION CLERK Harinder Hernandez [facility] Procedures Code Procedure Name Date Entry Date Standard Description CPT-G0009 Administration of Pneumococcal Vaccine 10:33:25 IDENTIFICATION CLERK CPT-20604 Pneumovax 23 Injection Injectable 25 MCG/0.5ML 10:33:25 IDENTIFICATION CLERK CPT-88467 First Vx - Ix admin for Medicare patients 10:33:25 IDENTIFICATION CLERK CPT-73160 Fluzone Quadrivalent Intramuscular Suspension 0.5 ML 10: 33:25 IDENTIFICATION CLERK CPT-Cryo Cryotherapy 10:17:51 IDENTIFICATION CLERK CPT-G0438 Initial Annual Wellness Exam 10:08:59 IDENTIFICATION CLERK CPT-34442 Abd compl w upright - XRAY USE ONLY 14:48:09 CDT 02/18 CPT-81564 Port a cath flush 13:46:05 CDT CPT-01408 Hip, complete, 2-3 views - XRAY USE ONLY 10:28:40 CDT CPT-10137 BMP - LAB USE ONLY 16:45:09 IDENTIFICATION CLERK CPT-57874 Port a cath flush 12:00:13 IDENTIFICATION CLERK CPT-TCMM Transitional Care Mgmt-Moderate 11:20:16 IDENTIFICATION CLERK CPT-25899 First Vx - Ix admin for Medicare patients 17:35:15 CDT CPT-69338 Fluzone Preservative Free Intramuscular Suspension 17:35 :15 CDT CPT-30141 Microalbumin - LAB USE ONLY 11:52:05 CDT CPT-TCMM Transitional Care Mgmt-Moderate 11:33:57 CDT CPT-59116 No Charge Offi Visit 14:11:29 CDT CPT-08486 Magnesium - LAB USE ONLY 10:45:44 CDT CPT-79889 Lipid - LAB USE ONLY 10:45:44 CDT CPT-15109 CBC - LAB USE ONLY 10:45:44 CDT CPT-17069 Venipuncture Draw Fee 10:45:43 CDT CPT-99345 Venipuncture Draw Fee 18:21:27 CDT CPT-JTINJ Asp/Joint Injection 18:38:04 CDT CPT-85564 Immunization Each Additional Inj 17:38:04 CDT CPT-37847 Immunization Single Admin 17:38:04 CDT CPT-27290 Prevnar 13 17:38:04 CDT CPT-81601 Fluzone Quadrivalent preservative free (>=3yrs.) 17:38: 04 CDT CPT-85608 No Charge Offi Visit 11:14:03 CDT CPT-90879 Chest 2V Frontal and Lat 14:00:18 CDT CPT-OV Office Visit 16:10:28 CDT CPT-JTINJ Asp/Joint Injection 09:03:57 CDT CPT-Cryo Cryotherapy 09:35:49 IDENTIFICATION CLERK CPT-JTINJ Asp/Joint Injection 09:34:45 IDENTIFICATION CLERK CPT-J2930 Solu Medrol 125 mg (Methyl Prednisolone Sodium Succinate) 20:37:27 CDT CPT-27981 Abx/Therapy Injection 20:37:27 CDT CPT-76278 Port a cath flush 08:15:51 CDT CPT-58182 Port a cath flush 09:54:16 CDT CPT-78938 Port a cath flush 09:38:02 CDT CPT-33999 Port a cath flush 11:00:27 IDENTIFICATION CLERK
--- OUTSIDE RECORDS SUMMARY | 2017-12-29 04:00 | XMS REPORT | Clinical Summary ---
Author Author Admin, QIE Organization [facility] [employer] Address Unknown Phone Unavailable Allergies, Adverse Reactions, [...] Harinder Hernandez DO LYRICA Critical Active Harinder Hernanedz DO Conditions or Problems Problem Name Problem [...] CR-TABS 1 po q day POTASSIUM CHLORIDE 84512410063 Active Kortney Mccain Active POTASSIUM CHLORIDE 20 MEQ ORAL PACK 1 tab po q day POTASSIUM CHLORIDE 74699534782 No Longer Active Kortney Mccain Active POTASSIUM CHLORIDE CR 10 MEQ CPCR 1 capsule BID POTASSIUM CHLORIDE 11135170342 No Longer Active Kortney Mccain Active LASIX 20 MG TAB 1 tablet by mouth every morning FUROSEMIDE 55772958398 No Longer Active Kortney Mccain Active SPIRONOLACTONE 25 MG TAB 1 tablet by mouth daily SPIRONOLACTONE 70404224373 Active Kortney Mccain Active FLUOXETINE HCL 10 MG ORAL CAPS 1 po qd for depression/anxiety FLUOXETINE HCL 27694641969 Active Harinder Hernandez DO Active VOLTAREN 1 % GEL apply q 6-8 hour to left arm as needed for pain DICLOFENAC SODIUM 77147283937 Active Kortney Mccain Active ALBUTEROL SULFATE 0.083 % NEBU SOLN 1 vial neb q 4hrs for severe asthma. 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 FLUTICASONE PROPIONATE HFA 62437514185 Active Harinder Hernandez DO Active EPIPEN 2-BRUNA 0.3 MG/0.3ML INJ SOAJ 1 INJ NEEDED EPINEPHRINE 06618791218 Active Harinder Hernandez DO Active PREDNISONE 20 MG TAB 1 tab twice daily for 3 day, then one daily for three days PREDNISONE 55120418661 No Longer Active Harinder Hernandez DO Active PREDNISONE 20 MG TAB 1 tablet twice daily for 2 days, then 1 tablet once daily for 2 days PREDNISONE 73280038658 No Longer Active Harinder Hernandez DO Active ASMANEX 120 METERED DOSES 220 MCG/INH INH AEPB 2 puffs orally twice daily MOMETASONE FUROATE 35754881781 Active Jeri Sosa LPN Active TOPIRAMATE 25 MG TABS 1 tab po BID TOPIRAMATE 24313868145 No Longer Active Nettie Newberry APRN Active AMLODIPINE BESYLATE 5 MG ORAL TABS Take 1 tab po daily AMLODIPINE BESYLATE 39362443956 No Longer Active Nettie Newberry APRN Active MECLIZINE HCL 25 MG TAB 1 tablet three times daily for 3 days, then 1/2 tab three times daily for 3 days. MECLIZINE HCL 12476700685 No Longer Active Nettieog Newberry APRN Active AMITRIPTYLINE HCL 25 MG ORAL TABS 1 q hs prn AMITRIPTYLINE HCL 21923107859 No Longer Active Nettie Newberry MAHENDRA Active DILAUDID 2 MG ORAL TABS Take 1/2 tab po every 4 hours as needed for pain 2014 HYDROMORPHONE HCL 59269243688 No Longer Active Nettieog Newberry APRN Active CLOPIDOGREL BISULFATE 75 MG ORAL TABS 1 tab by mouth once daily CLOPIDOGREL BISULFATE 61676955812 Active Harinder Hernandez DO Active ATORVASTATIN CALCIUM 10 MG ORAL TABS 1 at bedtime ATORVASTATIN CALCIUM 81422266102 Active Kortney Mccain Active LOVASTATIN 40 MG ORAL TABS Take 1 tab po every hs LOVASTATIN 62509403478 No Longer Active Harinder Hernandez DO Active PREDNISONE 20 MG TAB 2 tabs daily for 4 days, 1 tab daily for 4 days, 1/2 tab daily for 4 days PREDNISONE 75946508378 No Longer Active Harinder Hernandez DO Active LEVAQUIN 500 MG ORAL TABS Take 1 tab po daily x 8 days LEVOFLOXACIN 63039913936 No Longer Active Harinder Hernandez DO Active VENTOLIN HFA 108 (90 BASE) MCG/ACT AERS 2 -4 puffs four times a day PRN 2013 ALBUTEROL SULFATE 05312796560 No Longer Active Jeri Sosa LPN Active ACEBUTOLOL HCL 200 MG CAPS 1 cap in the morning and 2 caps in the evening ACEBUTOLOL HCL 80426442170 No Longer Active Harinder Hernandez DO Active CEFDINIR 300 MG ORAL CAPS take 1 cap po bid x 10 days CEFDINIR 08585402046 No Longer Active Harinder Hernandez DO Active LOVASTATIN 40 MG TABS 1 pill by mouth nightly for cholesterol LOVASTATIN 19326127055 No Longer Active Nettie King MAHENDRA Active NITROSTAT 0.4 MG SUBL 1 tab under tongueas needed for chest pain ( may take 3 total, 5 min apart, then call 911) NITROGLYCERIN 80498660001 No Longer Active Nettie Newberry APRN Active POTASSIUM CHLORIDE CR 10 MEQ CPCR 1 capsule by mouth daily 02/14 POTASSIUM CHLORIDE 76424891655 No Longer Active Nettieog Newberry APRN Active TESSALON PERLES 100 MG CAP 1 to 2 tablets by mouth 3 times daily as needed for cough BENZONATATE 01282293456 No Longer Active Nettie Newberry APRN Active THEOPHYLLINE ER 200 MG ORAL [id number] Take 1 tab every 12 hours THEOPHYLLINE 42720531401 Active Kortney Mccain Active PREDNISONE 20 MG TAB 2 po qd x 5 days PREDNISONE 01294925667 No Longer Active Jae Morgan MD Active AZITHROMYCIN 250 MG TABS 2 po qd x 1 day, then 1 po qd x 4 days AZITHROMYCIN 95802242402 No Longer Active Jae Morgan MD Active PREDNISONE 20 MG TAB 1 tab twice daily for 3 day, then one daily for three days PREDNISONE 55281815138 No Longer Active Jae Morgan MD Active SINGULAIR 10 MG TABS 1 pill by mouth every evening for breathing. MONTELUKAST SODIUM 13983513742 Active Kortney Mccain Active TYLENOL 325 MG TAB 3 by mouth q4h as needed ACETAMINOPHEN 18411370745 Active Harinder Hernandez DO Active POTASSIUM CHLORIDE ER 10 MEQ CR-TABS take 1 tab po daily POTASSIUM CHLORIDE 60352621260 No Longer Active Harinder Hernandez DO Active PREDNISONE 20 MG TAB 1 TID x 2 days, then 1 BID x 3 days, then 1 Daily x 3 days, then stop PREDNISONE 55082642361 No Longer Active John Montemayor APRN Active LEVAQUIN 500 MG TAB 1 tablet by mouth daily LEVOFLOXACIN 12275602044 No Longer Active Jillina Frashai BRICEÑON Active NEURONTIN 300 MG CAP 1 cap by mouth three times daily for restless leg 06/22 GABAPENTIN 47915453742 No Longer Active Harinder Hernandez DO Active BENZONATATE 100 MG CAPS 1 cap po TID PRN BENZONATATE 94312964193 No Longer Active Harinder Hernandez DO Active MONTELUKAST SODIUM 10 MG TABS 1 tab po in the evening MONTELUKAST SODIUM 82136770102 No Longer Active Harinder Hernandez DO Active MUPIROCIN 2 % OINT apply to affected area BID x 14 days MUPIROCIN 13719146058 No Longer Active Harinder Hernandez DO Active TYLENOL EXTRA STRENGTH 500 MG TABS as needed ACETAMINOPHEN 12124705100 No Longer Active Harinder Hernandez DO Active PREDNISONE 10 MG TABS 1 tab po daily PREDNISONE 68511603068 No Longer Active Harinder Hernandez DO Active PREDNISONE 20 MG TAB 2 tabs daily for 4 days, 1 tab daily for 4 days, 1/2 tab daily for 4 days PREDNISONE 87606162998 No Longer Active Harinder Hernandez DO Active AZITHROMYCIN 250 MG TABS 2 po qd x 1 day, then 1 po qd x 4 days AZITHROMYCIN 19101295841 No Longer Active Harinder Hernandez DO Active PREDNISONE 20 MG TAB 3 tabs today, then 1 tab twice daily for 3 day, then one daily for three days PREDNISONE 40925766573 No Longer Active Harinder Hernandez DO Active NIFEDIAC CC 30 MG [id number] 1 tablet daily for raynaud's syndrome NIFEDIPINE 47614972070 No Longer Active Tawnya Pardo MA Active AMBIEN 10 MG TAB 1/2 tab by mouth at bedtime as needed for sleep ZOLPIDEM TARTRATE 56897860676 Active Kortney Mccain Active CLONAZEPAM 1 MG TABS 1 tablet at bedtime for insomnia and restless legs 09/14 CLONAZEPAM 64161616255 Active Harinder Hernandez DO Active CLONAZEPAM 0.5 MG TABS 1 tab po daily CLONAZEPAM 79993982842 No Longer Active Harinder Shaye David DO Active PREDNISONE 10 MG TAB 1 tablet daily for COPD PREDNISONE 35116530519 Active Harinder Hernandez DO Active PROAIR HFA 108 (90 BASE) MCG/ACT AERS 2 puffs four times a day as needed 2012 ALBUTEROL SULFATE 44799910402 Active Harinder Cr David DO Active FLOVENT HFA 110 MCG/ACT AERO 2 puffs inhaled b.i.d. FLUTICASONE PROPIONATE HFA 67709081875 Active Kortney Mccain Active ACIPHEX 20 MG TBEC 1 tab po daily RABEPRAZOLE SODIUM 38088901797 Active Kaylah Newberry Active CLONAZEPAM 0.5 MG TABS 1 tab po daily CLONAZEPAM 0.5 MG TABS 239492 CLONAZEPAM Inactive PREDNISONE 20 MG TAB 3 tabs today, then 1 tab twice daily for 3 day, then one daily for three days PREDNISONE 20 MG TAB 163738 PREDNISONE Inactive PREDNISONE 20 MG TAB 2 tabs daily for 4 days, 1 tab daily for 4 days, 1/2 tab daily for 4 days PREDNISONE 20 MG TAB 808243 PREDNISONE Inactive PREDNISONE 10 MG TABS 1 tab po daily PREDNISONE 10 MG TABS 352072 PREDNISONE Inactive TYLENOL EXTRA STRENGTH 500 MG TABS as needed TYLENOL EXTRA STRENGTH 500 MG TABS 717923 ACETAMINOPHEN Inactive MUPIROCIN 2 % OINT apply to affected area BID x 14 days MUPIROCIN 2 % OINT 098898 MUPIROCIN Inactive MONTELUKAST SODIUM 10 MG TABS 1 tab po in the evening MONTELUKAST SODIUM 10 MG TABS 20010818 MONTELUKAST SODIUM Inactive BENZONATATE 100 MG CAPS 1 cap po TID PRN BENZONATATE 100 MG CAPS 984984 BENZONATATE Inactive NEURONTIN 300 MG CAP 1 cap by mouth three times daily for restless leg 06/22 NEURONTIN 300 MG CAP 914297 GABAPENTIN Inactive LEVAQUIN 500 MG TAB 1 tablet by mouth daily LEVAQUIN 500 MG TAB 660674 LEVOFLOXACIN Inactive PREDNISONE 20 MG TAB 1 TID x 2 days, then 1 BID x 3 days, then 1 Daily x 3 days, then stop PREDNISONE 20 MG TAB 643345 PREDNISONE Inactive POTASSIUM CHLORIDE ER 10 MEQ CR-TABS take 1 tab po daily POTASSIUM CHLORIDE ER 10 MEQ CR-TABS POTASSIUM CHLORIDE Inactive PREDNISONE 20 MG TAB 1 tab twice daily for 3 day, then one daily for three days PREDNISONE 20 MG TAB 697273 PREDNISONE Inactive TESSALON PERLES 100 MG CAP 1 to 2 tablets by mouth 3 times daily as needed for cough TESSALON PERLES 100 MG CAP 401532 BENZONATATE Inactive POTASSIUM CHLORIDE CR 10 MEQ CPCR 1 capsule by mouth daily 02/14 POTASSIUM CHLORIDE CR 10 MEQ CPCR POTASSIUM CHLORIDE Inactive NITROSTAT 0.4 MG SUBL 1 tab under tongueas needed for chest pain ( may take 3 total, 5 min apart, then call 911) NITROSTAT 0.4 MG SUBL 140609 NITROGLYCERIN Inactive LOVASTATIN 40 MG TABS 1 pill by mouth nightly for cholesterol LOVASTATIN 40 MG TABS 618865 LOVASTATIN Inactive CEFDINIR 300 MG ORAL CAPS take 1 cap po bid x 10 days CEFDINIR 300 MG ORAL CAPS 363082 CEFDINIR Inactive ACEBUTOLOL HCL 200 MG CAPS 1 cap in the morning and 2 caps in the evening ACEBUTOLOL HCL 200 MG CAPS 365972 ACEBUTOLOL HCL Inactive VENTOLIN HFA 108 (90 BASE) MCG/ACT AERS 2 -4 puffs four times a day PRN 2013 VENTOLIN HFA 108 (90 BASE) MCG/ACT AERS ALBUTEROL SULFATE Inactive LEVAQUIN 500 MG ORAL TABS Take 1 tab po daily x 8 days LEVAQUIN 500 MG ORAL TABS 467720 LEVOFLOXACIN Inactive PREDNISONE 20 MG TAB 2 tabs daily for 4 days, 1 tab daily for 4 days, 1/2 tab daily for 4 days PREDNISONE 20 MG TAB 224416 PREDNISONE Inactive LOVASTATIN 40 MG ORAL TABS Take 1 tab po every hs LOVASTATIN 40 MG ORAL TABS 347088 LOVASTATIN Inactive DILAUDID 2 MG ORAL TABS Take 1/2 tab po every 4 hours as needed for pain 2014 DILAUDID 2 MG ORAL TABS 828651 HYDROMORPHONE HCL Inactive AMITRIPTYLINE HCL 25 MG ORAL TABS 1 q hs prn AMITRIPTYLINE HCL 25 MG ORAL TABS 180552 AMITRIPTYLINE HCL Inactive MECLIZINE HCL 25 MG TAB 1 tablet three times daily for 3 days, then 1/2 tab three times daily for 3 days. MECLIZINE HCL 25 MG TAB 376991 MECLIZINE HCL Inactive AMLODIPINE BESYLATE 5 MG ORAL TABS Take 1 tab po daily AMLODIPINE BESYLATE 5 MG ORAL TABS 226355 AMLODIPINE BESYLATE Inactive TOPIRAMATE 25 MG TABS 1 tab po BID TOPIRAMATE 25 MG TABS 920419 TOPIRAMATE Inactive PREDNISONE 20 MG TAB 1 tablet twice daily for 2 days, then 1 tablet once daily for 2 days PREDNISONE 20 MG TAB 873482 PREDNISONE Inactive PREDNISONE 20 MG TAB 1 tab twice daily for 3 day, then one daily for three days PREDNISONE 20 MG TAB 937012 PREDNISONE Inactive NIFEDIPINE ER 30 MG ORAL [id number] 1 daily NIFEDIPINE ER 30 MG ORAL [id number] NIFEDIPINE Inactive AMLODIPINE BESYLATE 5 MG TABS 1 tablet by mouth daily AMLODIPINE BESYLATE 5 MG TABS 718791 AMLODIPINE BESYLATE Inactive LASIX 20 MG TAB 1 tablet by mouth every morning LASIX 20 MG TAB 622713 FUROSEMIDE Inactive POTASSIUM CHLORIDE CR 10 MEQ CPCR 1 capsule BID POTASSIUM CHLORIDE CR 10 MEQ CPCR POTASSIUM CHLORIDE Inactive POTASSIUM CHLORIDE 20 MEQ ORAL PACK 1 tab po q day POTASSIUM CHLORIDE 20 MEQ ORAL PACK 6978749 POTASSIUM CHLORIDE Inactive AZITHROMYCIN 250 MG TABS 2 po qd x 1 day, then 1 po qd x 4 days AZITHROMYCIN 250 MG TABS 223165 AZITHROMYCIN Inactive AZITHROMYCIN 250 MG TABS 2 po qd x 1 day, then 1 po qd x 4 days AZITHROMYCIN 250 MG TABS 778034 AZITHROMYCIN Inactive PREDNISONE 20 MG TAB 2 po qd x 5 days PREDNISONE 20 MG TAB 407602 PREDNISONE Inactive Vital Signs Date Name Value [...] Panel - Chemistry sodium, serum 137 mmol/L 276-537 7463/01/03 potassium, serum 3.4 mmol/L 3.5-5.2 chloride, serum 102 mmol/L 98-107 carbon dioxide, venous blood 29.2 mmol/L 21.0-32.0 blood glucose 87 mg/dL 65-110 calcium, serum 8.5 mg/dL 8.5-10.1 urea nitrogen, blood 8 mg/dL 7-18 creatinine, serum 0.82 mg/dL 0.55-1.30 sodium, serum 140 mmol/L 296-900 8237/07/13 potassium, serum 3.2 mmol/L 3.5-5.2 chloride, serum 103 mmol/L 98-107 carbon dioxide, venous blood 26.9 mmol/L 21.0-32.0 blood glucose 93 mg/dL 65-110 calcium, serum 9.2 mg/dL 8.5-10.1 urea nitrogen, blood 13 mg/dL 7-18 creatinine, serum 0.84 mg/dL 0.60-1.30 sodium, serum 140 mmol/L 374-934 9449/08/21 potassium, serum 3.8 mmol/L 3.5-5.2 chloride, serum [...] ... - Chemistry sodium, serum 141 mmol/L 079-859 9774/08/07 carbon dioxide, venous blood 34.0 mmol/L 21.0-32.0 [...] 1.40 mg/dL 0.00-1.00 cholesterol, serum 192 mg/dL 438-261 8250/10/19 triglyceride, serum, fasting 71 mg/dL 30-200 HDL cholesterol, serum 72 mg/dL 32-60 LDL cholesterol, serum 106 mg/dL 0-130 Lab Report: MICROALB/CREAT W/RATIO - Chemistry albumin/creatinine ratio, urine < 30 mg/g mg/g{creat} 0-29 Lab Report: MICROALB/CREAT W/RATIO - Lab microalbumin, urine 10 0-19 Lab Report: THEOPHYLLINE - Toxicology theophylline level, serum 3.1 ug/mL 10.0-20.0 Encounters Code Encounter Date Provider Facility CPT-05732 Level 4 Est. Patient 14:45:25 CDT Harinder Hernandez [facility] CPT-03826 Level 4 Est. Patient 09:15:13 CDT Harinder Hernandez [facility] CPT-65097 Level 3 Est. Patient 11:51:58 CDT Harinder Hernandez [facility] CPT-83403 Level 3 Est. Patient 11:30:05 CDT Harinder Hernandez [facility] CPT-90029 Level 4 Est. Patient 10:19:23 CDT Harinder Hernandez [facility] CPT-47079 Level 3 Est. Patient 09:58:58 CDT Harinder Hernandez [facility] CPT-15520 Level 3 Est. Patient 12:37:21 CDT Harinder Hernandez [facility] CPT-33595 Level 3 Est. Patient 18:37:17 CDT Harinder Cr [facility] CPT-98705 Level 4 Est. Patient 11:15:54 CDT Nettie King MAHENDRA [facility] CPT-53155 Level 3 Est. Patient 16:42:24 CDT Harinder Cr [facility] CPT-53267 Level 3 Est. Patient 15:03:36 CDT Harinder Hernandez [facility] CPT-94900 Level 3 Est. Patient 15:03:20 CDT Harinder Cr [facility] CPT-52949 Level 3 Est. Patient 12:14:34 CDT Harinder Hernandez [facility] CPT-01404 Level 3 Est. Patient 13:47:15 CDT Harinder Hernandez [facility] CPT-54579 Level 3 Est. Patient 14:08:24 CDT Harinder Hernandez [facility] CPT-75276 Level 3 Est. Patient 10:07:15 CDT Harinder Cr [facility] CPT-47441 Level 3 Est. Patient 10:06:59 CDT Harinder Hernandez [facility] CPT-11068 Level 3 Est. Patient 15:53:29 CDT Jae Morgan [facility] CPT-65885 Level 3 Est. Patient 17:19:04 CDT Harinder Hernandez [facility] CPT-53997 Level 3 Est. Patient 11:13:01 CDT Harinder Hernandez [facility] CPT-20837 Level 3 Est. Patient 09:03:58 CDT Harinder Hernandez [facility] CPT-49158 Level 3 Est. 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 Patient 15:51:07 CDT Harinder Hernandez [facility] CPT-76994 Level 3 Est. Patient 18:13:13 CDT Harinder Cr [facility] CPT-91701 Level 3 Est. Patient 10:44:19 CDT Harinder Cr [facility] CPT-19524 Level 4 Est. 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 CPT-43327 First Vx - Ix admin for Medicare patients 17:35:15 CDT CPT-71399 Fluzone Preservative Free Intramuscular Suspension 17:35 :15 CDT CPT-84484 Microalbumin - LAB USE ONLY 11:52:05 CDT CPT-TCMM Transitional Care Mgmt-Moderate 11:33:57 CDT CPT-92161 No Charge Offi Visit 14:11:29 CDT CPT-04934 Magnesium - LAB USE ONLY 10:45:44 CDT CPT-53504 Lipid - LAB USE ONLY 10:45:44 CDT CPT-99951 CBC - LAB USE ONLY 10:45:44 CDT CPT-75222 Venipuncture Draw Fee 10:45:43 CDT CPT-94699 Venipuncture Draw Fee 18:21:27 CDT CPT-JTINJ Asp/Joint Injection 18:38:04 CDT CPT-27591 Immunization Each Additional Inj 17:38:04 CDT CPT-08453 Immunization Single Admin 17:38:04 CDT CPT-42049 Prevnar 13 17:38:04 CDT CPT-95734 Fluzone Quadrivalent preservative free (>=3yrs.) 17:38: 04 CDT CPT-73798 No Charge Offi Visit 11:14:03 CDT CPT-87442 Chest 2V Frontal and Lat 14:00:18 CDT CPT-OV Office Visit 16:10:28 CDT CPT-JTINJ Asp/Joint Injection 09:03:57 CDT CPT-Cryo Cryotherapy 09:35:49 WELDING 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 CPT-JTINJ Asp/Joint Injection 09:34:45 WELDING 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
--- OUTSIDE RECORDS SUMMARY | 2017-12-29 04:02 | XMS REPORT | Clinical Summary ---
Author Author Admin, QIE Organization [facility] [employer] Address Unknown Phone Unavailable Allergies, Adverse Reactions, [...] right ICD-611.72 Inactive Harinder Shaye Hernandez DO Encounter for fitting and adjustment of vascular catheter ICD-V58.81 Inactive Harinder Shaye Hernandez DO Back pain, lumbar ICD-724.2 Inactive [...] Patient Instruction NIFEDIPINE ER 30 MG ORAL [id number] 1 daily NIFEDIPINE [id number] Active Nettie Newberry APRN Active TOPIRAMATE 25 MG TABS 1 tab po BID TOPIRAMATE 18747149805 No Longer Active Nettie Newberry APRN Active AMLODIPINE BESYLATE 5 MG ORAL TABS Take 1 tab po daily AMLODIPINE BESYLATE 37237580915 No Longer Active Nettie Newberry APRN Active MECLIZINE HCL 25 MG TAB 1 tablet three times daily for 3 days, then 1/2 tab three times daily for 3 days. MECLIZINE HCL 56662137165 No Longer Active Nettie Newberry APRN Active AMITRIPTYLINE HCL 25 MG ORAL TABS 1 q hs prn AMITRIPTYLINE HCL 43698512157 No Longer Active Nettie Rohith MAHENDRA Active DILAUDID 2 MG ORAL TABS Take 1/2 tab po every 4 hours as needed for pain 2014 HYDROMORPHONE HCL 26519207125 No Longer Active Nettieog Newberry APRN Active CLOPIDOGREL BISULFATE 75 MG ORAL TABS 1 tab by mouth once daily CLOPIDOGREL BISULFATE 24087347624 Active Harinder Hernandez DO Active ATORVASTATIN CALCIUM 10 MG ORAL TABS 1 at bedtime ATORVASTATIN CALCIUM 76315174582 Active Harinder Hernandez DO Active LOVASTATIN 40 MG ORAL TABS Take 1 tab po every hs LOVASTATIN 81832488646 No Longer Active Harinder Hernandez DO Active PREDNISONE 20 MG TAB 2 tabs daily for 4 days, 1 tab daily for 4 days, 1/2 tab daily for 4 days PREDNISONE 62510941666 No Longer Active Harinder Hernandez DO Active LEVAQUIN 500 MG ORAL TABS Take 1 tab po daily x 8 days LEVOFLOXACIN 90868114620 No Longer Active Harinder Hernandez DO Active VENTOLIN HFA 108 (90 BASE) MCG/ACT AERS 2 -4 puffs four times a day PRN 2013 ALBUTEROL SULFATE 90880223023 No Longer Active Jeri Sosa RPT,RMA Active ACEBUTOLOL HCL 200 MG CAPS 1 cap in the morning and 2 caps in the evening ACEBUTOLOL HCL 25682359041 No Longer Active Harinder Hernandez DO Active CEFDINIR 300 MG ORAL CAPS take 1 cap po bid x 10 days CEFDINIR 41562234115 No Longer Active Harinder Hernandez DO Active LOVASTATIN 40 MG TABS 1 pill by mouth nightly for cholesterol LOVASTATIN 37075014884 No Longer Active Nettie Newberry APRN Active NITROSTAT 0.4 MG SUBL 1 tab under tongueas needed for chest pain ( may take 3 total, 5 min apart, then call 911) NITROGLYCERIN 76908042216 No Longer Active Nettieog Newberry APRN Active POTASSIUM CHLORIDE CR 10 MEQ CPCR 1 capsule by mouth daily 02/14 POTASSIUM CHLORIDE 64913939193 No Longer Active Nettie King MAHENDRA Active TESSALON PERLES 100 MG CAP 1 to 2 tablets by mouth 3 times daily as needed for cough BENZONATATE 13229686106 No Longer Active Nettieog Newberyr APRN Active THEOPHYLLINE ER 200 MG ORAL [id number] Take 1 tab every 12 hours THEOPHYLLINE 38225966067 Active Tawnya Pardo MA Active PREDNISONE 20 MG TAB 2 po qd x 5 days PREDNISONE 73653378338 No Longer Active Jae Morgan MD Active AZITHROMYCIN 250 MG TABS 2 po qd x 1 day, then 1 po qd x 4 days AZITHROMYCIN 27049518000 No Longer Active Jae Morgan MD Active PREDNISONE 20 MG TAB 1 tab twice daily for 3 day, then one daily for three days PREDNISONE 21416335461 No Longer Active Jae Morgan MD Active SINGULAIR 10 MG TABS 1 pill by mouth every evening for breathing. MONTELUKAST SODIUM 46227865021 Active Tawnya Pardo MA Active TYLENOL 325 MG TAB 3 by mouth q4h as needed ACETAMINOPHEN 83034506355 Active Harinder Hernandez DO Active POTASSIUM CHLORIDE ER 10 MEQ CR-TABS take 1 tab po daily POTASSIUM CHLORIDE 38817626754 No Longer Active Harinder Hernandez DO Active PREDNISONE 20 MG TAB 1 TID x 2 days, then 1 BID x 3 days, then 1 Daily x 3 days, then stop PREDNISONE 63017538077 No Longer Active Jillkvng Frashai MCCRAY Active LEVAQUIN 500 MG TAB 1 tablet by mouth daily LEVOFLOXACIN 68957024579 No Longer Active Jillina Frazell MAHENDRA Active NEURONTIN 300 MG CAP 1 cap by mouth three times daily for restless leg 06/22 GABAPENTIN 84080831803 No Longer Active Harinder Hernandez DO Active BENZONATATE 100 MG CAPS 1 cap po TID PRN BENZONATATE 12522083401 No Longer Active Harinder Hernandez DO Active MONTELUKAST SODIUM 10 MG TABS 1 tab po in the evening MONTELUKAST SODIUM 94699740005 No Longer Active Harinder Hernandez DO Active MUPIROCIN 2 % OINT apply to affected area BID x 14 days MUPIROCIN 59771169572 No Longer Active Harinder Hernandez DO Active TYLENOL EXTRA STRENGTH 500 MG TABS as needed ACETAMINOPHEN 75884152738 No Longer Active Harinder Hernandez DO Active PREDNISONE 10 MG TABS 1 tab po daily PREDNISONE 62588723022 No Longer Active Harinder Hernandez DO Active PREDNISONE 20 MG TAB 2 tabs daily for 4 days, 1 tab daily for 4 days, 1/2 tab daily for 4 days PREDNISONE 23338358644 No Longer Active Harinder Hernandez DO Active AZITHROMYCIN 250 MG TABS 2 po qd x 1 day, then 1 po qd x 4 days AZITHROMYCIN 44301367984 No Longer Active Harinder Hernandez DO Active PREDNISONE 20 MG TAB 3 tabs today, then 1 tab twice daily for 3 day, then one daily for three days PREDNISONE 98380066854 No Longer Active Harinder Hernandez DO Active NIFEDIAC CC 30 MG [id number] 1 tablet daily for raynaud's syndrome NIFEDIPINE 91602917635 No Longer Active Tawnya Pardo MA Active AMBIEN 10 MG TAB 1/2 tab by mouth at bedtime as needed for sleep ZOLPIDEM TARTRATE 11849093999 Active Harinder Hernandez DO Active CLONAZEPAM 1 MG TABS 1 tablet at bedtime for insomnia and restless legs 09/14 CLONAZEPAM 97110276870 Active Harinder Hernandez DO Active CLONAZEPAM 0.5 MG TABS 1 tab po daily CLONAZEPAM 56713969119 No Longer Active Harinder Hernandez DO Active PREDNISONE 10 MG TAB 1 tablet daily for COPD PREDNISONE 46460894081 Active Tawnya Pardo MA Active PROAIR HFA 108 (90 BASE) MCG/ACT AERS 2 puffs four times a day as needed 2012 ALBUTEROL SULFATE 10204320230 Active Tawnya Pardo MA Active FLOVENT HFA 110 MCG/ACT AERO 2 puffs inhaled b.i.d. FLUTICASONE PROPIONATE HFA 44729056079 Active Tawnya Pardo MA Active EPIPEN 0.3 MG/0.3ML URIEL DIRECTED EPINEPHRINE Active Demetrius JOHNSON Active ACIPHEX 20 MG TBEC 1 tab po daily RABEPRAZOLE SODIUM 47228652984 Active Tawnya Pardo MA Active CLONAZEPAM 0.5 MG TABS 1 tab po daily CLONAZEPAM 0.5 MG TABS 545510 CLONAZEPAM Inactive PREDNISONE 20 MG TAB 3 tabs today, then 1 tab twice daily for 3 day, then one daily for three days PREDNISONE 20 MG TAB 491627 PREDNISONE Inactive PREDNISONE 20 MG TAB 2 tabs daily for 4 days, 1 tab daily for 4 days, 1/2 tab daily for 4 days PREDNISONE 20 MG TAB 547223 PREDNISONE Inactive PREDNISONE 10 MG TABS 1 tab po daily PREDNISONE 10 MG TABS 214103 PREDNISONE Inactive TYLENOL EXTRA STRENGTH 500 MG TABS as needed TYLENOL EXTRA STRENGTH 500 MG TABS 199709 ACETAMINOPHEN Inactive MUPIROCIN 2 % OINT apply to affected area BID x 14 days MUPIROCIN 2 % OINT 782324 MUPIROCIN Inactive MONTELUKAST SODIUM 10 MG TABS 1 tab po in the evening MONTELUKAST SODIUM 10 MG TABS 20010818 MONTELUKAST SODIUM Inactive BENZONATATE 100 MG CAPS 1 cap po TID PRN BENZONATATE 100 MG CAPS 19730321 BENZONATATE Inactive NEURONTIN 300 MG CAP 1 cap by mouth three times daily for restless leg 06/22 NEURONTIN 300 MG CAP 180684 GABAPENTIN Inactive LEVAQUIN 500 MG TAB 1 tablet by mouth daily LEVAQUIN 500 MG TAB 934351 LEVOFLOXACIN Inactive PREDNISONE 20 MG TAB 1 TID x 2 days, then 1 BID x 3 days, then 1 Daily x 3 days, then stop PREDNISONE 20 MG TAB 176422 PREDNISONE Inactive POTASSIUM CHLORIDE ER 10 MEQ CR-TABS take 1 tab po daily POTASSIUM CHLORIDE ER 10 MEQ CR-TABS POTASSIUM CHLORIDE Inactive PREDNISONE 20 MG TAB 1 tab twice daily for 3 day, then one daily for three days PREDNISONE 20 MG TAB 010364 PREDNISONE Inactive TESSALON PERLES 100 MG CAP 1 to 2 tablets by mouth 3 times daily as needed for cough TESSALON PERLES 100 MG CAP 963641 BENZONATATE Inactive POTASSIUM CHLORIDE CR 10 MEQ [...] nightly for cholesterol LOVASTATIN 40 MG TABS 151397 LOVASTATIN Inactive CEFDINIR 300 MG ORAL CAPS take 1 cap po bid x 10 days CEFDINIR 300 MG ORAL CAPS 019047 CEFDINIR Inactive ACEBUTOLOL HCL 200 MG CAPS 1 cap in the morning and 2 caps in the evening ACEBUTOLOL HCL 200 MG CAPS 294676 ACEBUTOLOL HCL Inactive VENTOLIN HFA 108 (90 BASE) MCG/ACT AERS 2 -4 puffs four times a day PRN 2013 VENTOLIN HFA 108 (90 BASE) MCG/ACT AERS ALBUTEROL SULFATE Inactive LEVAQUIN 500 MG ORAL TABS Take 1 tab po daily x 8 days LEVAQUIN 500 MG ORAL TABS 079700 LEVOFLOXACIN Inactive PREDNISONE 20 MG TAB 2 tabs daily for 4 days, 1 tab daily for 4 days, 1/2 tab daily for 4 days PREDNISONE 20 MG TAB 865030 PREDNISONE Inactive LOVASTATIN 40 MG ORAL TABS Take 1 tab po every hs LOVASTATIN 40 MG ORAL TABS 763298 LOVASTATIN Inactive DILAUDID 2 MG ORAL TABS Take 1/2 tab po every 4 hours as needed for pain 2014 DILAUDID 2 MG ORAL TABS 397495 HYDROMORPHONE HCL Inactive AMITRIPTYLINE HCL 25 MG ORAL TABS 1 q hs prn AMITRIPTYLINE HCL 25 MG ORAL TABS 228183 AMITRIPTYLINE HCL Inactive MECLIZINE HCL 25 MG TAB 1 tablet three times daily for 3 days, then 1/2 tab three times daily for 3 days. MECLIZINE HCL 25 MG TAB 627528 MECLIZINE HCL Inactive AMLODIPINE BESYLATE 5 MG ORAL TABS Take 1 tab po daily AMLODIPINE BESYLATE 5 MG ORAL TABS 368877 AMLODIPINE BESYLATE Inactive TOPIRAMATE 25 MG TABS 1 tab po BID TOPIRAMATE 25 MG TABS 753850 TOPIRAMATE Inactive AZITHROMYCIN 250 MG TABS 2 po qd x 1 day, then 1 po qd x 4 days AZITHROMYCIN 250 MG TABS 3219724 AZITHROMYCIN Inactive AZITHROMYCIN 250 MG TABS 2 po qd x 1 day, then 1 po qd x 4 days AZITHROMYCIN 250 MG TABS 1642143 AZITHROMYCIN Inactive PREDNISONE 20 MG TAB 2 po qd x 5 days PREDNISONE 20 MG TAB 080255 PREDNISONE Inactive Vital Signs Date Name Value [...] Panel - Chemistry sodium, serum 138 mmol/L 468-800 9774/09/24 potassium, serum 3.5 mmol/L 3.5-5.2 chloride, serum [...] [phone] Encounters Code Encounter Date Provider Facility CPT-30164 Level 4 Est. Patient 11:15:54 CDT Nettie Newberry APRN [facility] CPT-77573 Level 3 Est. Patient 16:42:24 CDT Harinder Cr [facility] CPT-47141 Level 3 Est. Patient 15:03:36 CDT Harinder Cr [facility] CPT-33434 Level 3 Est. Patient 15:03:20 CDT Harinder Cr [facility] CPT-59666 Level 3 Est. Patient 12:14:34 CDT Harinder Hernandez [facility] CPT-81252 Level 3 Est. Patient 13:47:15 CDT Harinder Cr [facility] CPT-96578 Level 3 Est. Patient 14:08:24 CDT Harinder Cr [facility] CPT-69379 Level 3 Est. Patient 10:07:15 CDT Harinder Cr [facility] CPT-21651 Level 3 Est. Patient 10:06:59 CDT Harinder Cr [facility] CPT-50493 Level 3 Est. Patient 15:53:29 CDT Jae Morgan MD [facility] CPT-46527 Level 3 Est. Patient 17:19:04 CDT Harinder Hernandez [facility] CPT-21916 Level 3 Est. Patient 11:13:01 CDT Harinder Cr [facility] CPT-75946 Level 3 Est. Patient 09:03:58 CDT Harinder Cr [facility] CPT-31600 Level 3 Est. Patient 14:46:45 GEOGRAPHY PROFESSOR Harinder Cr [facility] CPT-51939 Level 3 Est. Patient 09:35:49 GEOGRAPHY PROFESSOR Harinder Hernandez [facility] CPT-40932 Level 3 Est. Patient 09:29:37 GEOGRAPHY PROFESSOR Harinder Hernandez [facility] CPT-66915 Level 3 Est. Patient 15:51:07 CDT Harinder Hernandez [facility] CPT-97876 Level 3 Est. Patient 18:13:13 CDT Harinder Hernandez [facility] CPT-59173 Level 3 Est. Patient 10:44:19 CDT Harinder Hernandez [facility] CPT-87585 Level 4 Est. Patient 10:07:19 GEOGRAPHY PROFESSOR Harinder Hernandez [facility] CPT-84743 Level 3 Est. Patient 15:59:32 GEOGRAPHY PROFESSOR Harinder Cr [facility] Procedures Code Procedure Name Date Entry Date Standard Description CPT-34751 Immunization Each Additional Inj 17:38:04 CDT CPT-28186 Immunization Single Admin 17:38:04 CDT CPT-94258 Prevnar 13 17:38:04 CDT CPT-84412 Fluzone Quadrivalent preservative free (>=3yrs.) 17:38: 04 CDT CPT-50675 No Charge Offi Visit 11:14:03 CDT CPT-49059 Chest 2V Frontal and Lat 14:00:18 CDT CPT-OV Office Visit 16:10:28 CDT CPT-JTINJ Asp/Joint Injection 09:03:57 CDT CPT-Cryo Cryotherapy 09:35:49 GEOGRAPHY PROFESSOR CPT-JTINJ Asp/Joint Injection 09:34:45 GEOGRAPHY PROFESSOR CPT-J2930 Solu Medrol 125 mg (Methyl Prednisolone Sodium Succinate) 20:37:27 CDT CPT-86990 Abx/Therapy Injection 20:37:27 CDT CPT-08101 Port a cath flush 08:15:51 CDT CPT-33365 Port a cath flush 09:54:16 CDT CPT-75483 Port a cath flush 09:38:02 CDT CPT-24415 Port a cath flush 11:00:27 GEOGRAPHY PROFESSOR
--- OUTSIDE RECORDS SUMMARY | 2017-12-29 04:04 | XMS REPORT | Clinical Summary ---
Author Author Admin, QIE Organization [facility] Address Unknown Phone Unavailable Allergies, [...] Harinder Hernandez DO Sacroiliitis, right ICD-720.2 Inactive Harindre Hernandez DO Biceps tendinitis, left ICD-726.12 Inactive [...] RELEASE 12 HOUR 1 po BID THEOPHYLLINE 16665359190 Active Kortney Mccain Active POTASSIUM CHLORIDE ER 20 MEQ ORAL TABLET EXTENDED RELEASE 1 po q day POTASSIUM CHLORIDE 67063311271 Active Kortney Mccain Active POTASSIUM CHLORIDE 20 MEQ ORAL PACKET 1 tab po q day POTASSIUM CHLORIDE 27795614993 No Longer Active Kortney Mccain Active POTASSIUM CHLORIDE ER 10 MEQ ORAL CAPSULE EXTENDED RELEASE 1 capsule BID 2016 POTASSIUM CHLORIDE 17534369660 No Longer Active Kortney Mccain Active LASIX 20 MG ORAL TABLET 1 tablet by mouth every morning FUROSEMIDE 39084892702 No Longer Active Kortney Mccain Active SPIRONOLACTONE 25 MG ORAL TABLET 1 tablet by mouth daily SPIRONOLACTONE 65887156680 Active Kortney Mccain Active FLUOXETINE HCL 10 MG ORAL CAPSULE 1 po qd for depression/anxiety FLUOXETINE HCL 37166862761 Active Harinder Hernandez DO Active VOLTAREN 1 % TRANSDERMAL GEL apply q 6-8 hour to left arm as needed for pain DICLOFENAC SODIUM 58031351262 Active Kortney Mccain Active ALBUTEROL SULFATE (2.5 MG/3ML) 0.083% INHALATION NEBULIZATION SOLUTION 1 vial neb q 4hrs for severe asthma. 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 NIFEDIPINE 02407758221 Active Kortney Mccain Active AMLODIPINE BESYLATE 5 MG ORAL TABLET 1 tablet by mouth daily 2016 AMLODIPINE BESYLATE 03762012823 No Longer Active Harinder Hernandez DO Active TOPAMAX 25 MG ORAL TABLET 1 tab po BID TOPIRAMATE 51257908677 Active Kortney Mccain Active FLUTICASONE PROPIONATE 50 MCG/ACT NASAL SUSPENSION 2 sprays per nostril daily PRN Allergies FLUTICASONE PROPIONATE 48488384788 Active Kortney Mccain Active NIFEDIPINE ER 30 MG ORAL TABLET EXTENDED RELEASE 24 HOUR 1 daily NIFEDIPINE 80073149734 No Longer Active Harinder Hernandez DO Active FLOVENT HFA 110 MCG/ACT INHALATION AEROSOL 2 puffs inhaled b.i.d. FLUTICASONE PROPIONATE HFA 95604086797 Active Harinder Hernandez DO Active EPIPEN 2-BRUNA 0.3 MG/0.3ML INJECTION SOLUTION AUTO-INJECTOR 1 INJ NEEDED EPINEPHRINE 79735904359 Active Kortney Mccain Active PREDNISONE 20 MG ORAL TABLET 1 tab twice daily for 3 day, then one daily for three days PREDNISONE 78831106446 No Longer Active Harinder Hernandez DO Active PREDNISONE 20 MG ORAL TABLET 1 tablet twice daily for 2 days, then 1 tablet once daily for 2 days PREDNISONE 56142503617 No Longer Active Harinder Hernandez DO Active ASMANEX 120 METERED DOSES 220 MCG/INH INHALATION AEROSOL POWDER BREATH ACTIVATED 2 puffs orally twice daily MOMETASONE FUROATE 77252876072 Active Jeri Sosa LPN Active TOPIRAMATE 25 MG ORAL TABLET 1 tab po BID TOPIRAMATE 22174490121 No Longer Active Nettie Newberry MAHENDRA Active AMLODIPINE BESYLATE 5 MG ORAL TABLET Take 1 tab po daily AMLODIPINE BESYLATE 79694010671 No Longer Active Nettie Newberry MAHENDRA Active MECLIZINE HCL 25 MG ORAL TABLET 1 tablet three times daily for 3 days, then 1/ 2 tab three times daily for 3 days. MECLIZINE HCL 70500238788 No Longer Active Nettie Newberry MAHENDRA Active AMITRIPTYLINE HCL 25 MG ORAL TABLET 1 q hs prn AMITRIPTYLINE HCL 28537527285 No Longer Active Nettie Newberry MAHENDRA Active DILAUDID 2 MG ORAL TABLET Take 1/2 tab po every 4 hours as needed for pain HYDROMORPHONE HCL 88149902545 No Longer Active Nettie Rohith MAHENDRA Active CLOPIDOGREL BISULFATE 75 MG ORAL TABLET 1 tab by mouth once daily CLOPIDOGREL BISULFATE 64464299281 Active Harinder Hernandez DO Active ATORVASTATIN CALCIUM 10 MG ORAL TABLET 1 at bedtime ATORVASTATIN CALCIUM 77780238736 Active Kortney Mccain Active LOVASTATIN 40 MG ORAL TABLET Take 1 tab po every hs LOVASTATIN 78383426174 No Longer Active Harinder Hernandez DO Active PREDNISONE 20 MG ORAL TABLET 2 tabs daily for 4 days, 1 tab daily for 4 days, 1/2 tab daily for 4 days PREDNISONE 83202529328 No Longer Active Harinder Hernandez DO Active LEVAQUIN 500 MG ORAL TABLET Take 1 tab po daily x 8 days LEVOFLOXACIN 13557145141 No Longer Active Harinder Hernandez DO Active VENTOLIN HFA 108 (90 Base) MCG/ACT INHALATION AEROSOL SOLUTION 2 -4 puffs four times a day PRN ALBUTEROL SULFATE 88198134222 No Longer Active Jeri Sosa LPN Active ACEBUTOLOL HCL 200 MG ORAL CAPSULE 1 cap in the morning and 2 caps in the evening ACEBUTOLOL HCL 33097478738 No Longer Active Harinder Hernandez DO Active CEFDINIR 300 MG ORAL CAPSULE take 1 cap po bid x 10 days CEFDINIR 99532968139 No Longer Active Harinder Hernandez DO Active LOVASTATIN 40 MG ORAL TABLET 1 pill by mouth nightly for cholesterol LOVASTATIN 04638163704 No Longer Active Nettie Newberry APRN Active NITROSTAT 0.4 MG SUBLINGUAL TABLET SUBLINGUAL 1 tab under tongueas needed for chest pain ( may take 3 total, 5 min apart, then call 911) NITROGLYCERIN 42123743877 No Longer Active Nettie Newberry APRN Active POTASSIUM CHLORIDE ER 10 MEQ ORAL CAPSULE EXTENDED RELEASE 1 capsule by mouth daily POTASSIUM CHLORIDE 38419162303 No Longer Active Nettie Newberry APRN Active TESSALON PERLES 100 MG ORAL CAPSULE 1 to 2 tablets by mouth 3 times daily as needed for cough BENZONATATE 16380224033 No Longer Active Nettie Newberry APRN Active PREDNISONE 20 MG ORAL TABLET 2 po qd x 5 days PREDNISONE 49789886973 No Longer Active Jae Morgan MD Active AZITHROMYCIN 250 MG ORAL TABLET 2 po qd x 1 day, then 1 po qd x 4 days 12/30 AZITHROMYCIN 27091191400 No Longer Active Jae Morgan MD Active PREDNISONE 20 MG ORAL TABLET 1 tab twice daily for 3 day, then one daily for three days PREDNISONE 58714435479 No Longer Active Jae Morgan MD Active SINGULAIR 10 MG ORAL TABLET 1 pill by mouth every evening for breathing. 2014 MONTELUKAST SODIUM 00606942618 Active Kortney Mccain Active TYLENOL 325 MG ORAL TABLET 3 by mouth q4h as needed ACETAMINOPHEN 67878162537 Active Harinder Hernandez DO Active POTASSIUM CHLORIDE ER 10 MEQ ORAL TABLET EXTENDED RELEASE take 1 tab po daily POTASSIUM CHLORIDE 69937094560 No Longer Active Harinder Hernandez DO Active PREDNISONE 20 MG ORAL TABLET 1 TID x 2 days, then 1 BID x 3 days, then 1 Daily x 3 days, then stop PREDNISONE 30441887443 No Longer Active Jialec Montemayor APRN Active LEVAQUIN 500 MG ORAL TABLET 1 tablet by mouth daily LEVOFLOXACIN 78805051011 No Longer Active Jillina Frazell [employer]IER Active NEURONTIN 300 MG ORAL CAPSULE 1 cap by mouth three times daily for restless leg GABAPENTIN 41717717897 No Longer Active Harinder Hernandez DO Active BENZONATATE 100 MG ORAL CAPSULE 1 cap po TID PRN BENZONATATE 67394400588 No Longer Active Harinder Hernandez DO Active MONTELUKAST SODIUM 10 MG ORAL TABLET 1 tab po in the evening 2014 MONTELUKAST SODIUM 76593445377 No Longer Active Harinder Hernandez DO Active MUPIROCIN 2 % EXTERNAL OINTMENT apply to affected area BID x 14 days MUPIROCIN 99715621296 No Longer Active Harinder Hernandez DO Active TYLENOL EXTRA STRENGTH 500 MG ORAL TABLET as needed ACETAMINOPHEN 37463109138 No Longer Active Harinder Hernandez DO Active PREDNISONE 10 MG ORAL TABLET 1 tab po daily PREDNISONE 00170049843 No Longer Active Harinder Hernandez DO Active PREDNISONE 20 MG ORAL TABLET 2 tabs daily for 4 days, 1 tab daily for 4 days, 1/2 tab daily for 4 days PREDNISONE 36123319138 No Longer Active Harinder Hernandez DO Active AZITHROMYCIN 250 MG ORAL TABLET 2 po qd x 1 day, then 1 po qd x 4 days 04/06 AZITHROMYCIN 21199462469 No Longer Active Harinder Hernandez DO Active PREDNISONE 20 MG ORAL TABLET 3 tabs today, then 1 tab twice daily for 3 day, then one daily for three days PREDNISONE 64425316011 No Longer Active Harinder Hernandez DO Active NIFEDIAC CC 30 MG ORAL TABLET EXTENDED RELEASE 24 HOUR 1 tablet daily for raynaud's syndrome NIFEDIPINE 12938390061 No Longer Active Tawnya Pardo MA Active AMBIEN 10 MG ORAL TABLET 1/2 tab by mouth at bedtime as needed for sleep 2013 ZOLPIDEM TARTRATE 95720567310 Active Kortney Mccain Active CLONAZEPAM 1 MG ORAL TABLET 1 tablet at bedtime for insomnia and restless legs CLONAZEPAM 18957688469 Active Harinder Hernandez DO Active CLONAZEPAM 0.5 MG ORAL TABLET 1 tab po daily CLONAZEPAM 43228339266 No Longer Active Harinder Hernandez DO Active PREDNISONE 10 MG ORAL TABLET 1 tablet daily for COPD PREDNISONE 86798585602 Active Kortney Mccain Active PROAIR HFA 108 (90 Base) MCG/ACT INHALATION AEROSOL SOLUTION 2 puffs four times a day as needed ALBUTEROL SULFATE 40993198983 Active Harinder Hernandez DO Active FLOVENT HFA 110 MCG/ACT INHALATION AEROSOL 2 puffs inhaled b.i.d. FLUTICASONE PROPIONATE HFA 34181729814 Active Kortney Mccain Active ACIPHEX 20 MG ORAL TABLET DELAYED RELEASE 1 tab po daily RABEPRAZOLE SODIUM 90641824169 Active Kaylah Newberry Active CLONAZEPAM 0.5 MG ORAL TABLET 1 tab po daily CLONAZEPAM 0.5 MG ORAL TABLET 399637 CLONAZEPAM Inactive PREDNISONE 20 MG ORAL TABLET 3 tabs today, then 1 tab twice daily for 3 day, then one daily for three days PREDNISONE 20 MG ORAL TABLET 536505 PREDNISONE Inactive PREDNISONE 20 MG ORAL TABLET 2 tabs daily for 4 days, 1 tab daily for 4 days, 1/2 tab daily for 4 days PREDNISONE 20 MG ORAL TABLET 951012 PREDNISONE Inactive PREDNISONE 10 MG ORAL TABLET 1 tab po daily PREDNISONE 10 MG ORAL TABLET 609420 PREDNISONE Inactive TYLENOL EXTRA STRENGTH 500 MG ORAL TABLET as needed TYLENOL EXTRA STRENGTH 500 MG ORAL TABLET 043472 ACETAMINOPHEN Inactive MUPIROCIN 2 % EXTERNAL OINTMENT apply to affected area BID x 14 days MUPIROCIN 2 % EXTERNAL OINTMENT 352650 MUPIROCIN Inactive MONTELUKAST SODIUM 10 MG ORAL TABLET 1 tab po in the evening 2014 MONTELUKAST SODIUM 10 MG ORAL TABLET 20010818 MONTELUKAST SODIUM Inactive BENZONATATE 100 MG ORAL CAPSULE 1 cap po TID PRN BENZONATATE 100 MG ORAL CAPSULE 508917 BENZONATATE Inactive NEURONTIN 300 MG ORAL CAPSULE 1 cap by mouth three times daily for restless leg NEURONTIN 300 MG ORAL CAPSULE 070444 GABAPENTIN Inactive LEVAQUIN 500 MG ORAL TABLET 1 tablet by mouth daily LEVAQUIN 500 MG ORAL TABLET 482603 LEVOFLOXACIN Inactive PREDNISONE 20 MG ORAL TABLET 1 TID x 2 days, then 1 BID x 3 days, then 1 Daily x 3 days, then stop PREDNISONE 20 MG ORAL TABLET 986678 PREDNISONE Inactive POTASSIUM CHLORIDE ER 10 MEQ ORAL TABLET EXTENDED RELEASE take 1 tab po daily POTASSIUM CHLORIDE ER 10 MEQ ORAL TABLET EXTENDED RELEASE POTASSIUM CHLORIDE Inactive PREDNISONE 20 MG ORAL TABLET 1 tab twice daily for 3 day, then one daily for three days PREDNISONE 20 MG ORAL TABLET 577674 PREDNISONE Inactive TESSALON PERLES 100 MG ORAL CAPSULE 1 to 2 tablets by mouth 3 times daily as needed for cough TESSALON PERLES 100 MG ORAL CAPSULE 565467 BENZONATATE Inactive POTASSIUM CHLORIDE ER 10 MEQ ORAL CAPSULE EXTENDED RELEASE 1 capsule by mouth daily POTASSIUM CHLORIDE ER 10 MEQ ORAL CAPSULE EXTENDED RELEASE POTASSIUM CHLORIDE Inactive NITROSTAT 0.4 MG SUBLINGUAL TABLET SUBLINGUAL 1 tab under tongueas needed for chest pain ( may take 3 total, 5 min apart, then call 911) NITROSTAT 0.4 MG SUBLINGUAL TABLET SUBLINGUAL 226603 NITROGLYCERIN Inactive LOVASTATIN 40 MG ORAL TABLET 1 pill by mouth nightly for cholesterol LOVASTATIN 40 MG ORAL TABLET 139342 LOVASTATIN Inactive CEFDINIR 300 MG ORAL CAPSULE take 1 cap po bid x 10 days CEFDINIR 300 MG ORAL CAPSULE 635092 CEFDINIR Inactive ACEBUTOLOL HCL 200 MG ORAL CAPSULE 1 cap in the morning and 2 caps in the evening ACEBUTOLOL HCL 200 MG ORAL CAPSULE 984666 ACEBUTOLOL HCL Inactive VENTOLIN HFA 108 (90 Base) MCG/ACT INHALATION AEROSOL SOLUTION 2 -4 puffs four times a day PRN VENTOLIN HFA 108 (90 Base) MCG/ ACT INHALATION AEROSOL SOLUTION ALBUTEROL SULFATE Inactive LEVAQUIN 500 MG ORAL TABLET Take 1 tab po daily x 8 days LEVAQUIN 500 MG ORAL TABLET 811042 LEVOFLOXACIN Inactive PREDNISONE 20 MG ORAL TABLET 2 tabs daily for 4 days, 1 tab daily for 4 days, 1/2 tab daily for 4 days PREDNISONE 20 MG ORAL TABLET 774768 PREDNISONE Inactive LOVASTATIN 40 MG ORAL TABLET Take 1 tab po every hs LOVASTATIN 40 MG ORAL TABLET 856034 LOVASTATIN Inactive DILAUDID 2 MG ORAL TABLET Take 1/2 tab po every 4 hours as needed for pain DILAUDID 2 MG ORAL TABLET 630240 HYDROMORPHONE HCL Inactive AMITRIPTYLINE HCL 25 MG ORAL TABLET 1 q hs prn AMITRIPTYLINE HCL 25 MG ORAL TABLET 974156 AMITRIPTYLINE HCL Inactive MECLIZINE HCL 25 MG ORAL TABLET 1 tablet three times daily for 3 days, then 1/ 2 tab three times daily for 3 days. MECLIZINE HCL 25 MG ORAL TABLET 004019 MECLIZINE HCL Inactive AMLODIPINE BESYLATE 5 MG ORAL TABLET Take 1 tab po daily AMLODIPINE BESYLATE 5 MG ORAL TABLET 959182 AMLODIPINE BESYLATE Inactive TOPIRAMATE 25 MG ORAL TABLET 1 tab po BID TOPIRAMATE 25 MG ORAL TABLET 755989 TOPIRAMATE Inactive PREDNISONE 20 MG ORAL TABLET 1 tablet twice daily for 2 days, then 1 tablet once daily for 2 days PREDNISONE 20 MG ORAL TABLET 452459 PREDNISONE Inactive PREDNISONE 20 MG ORAL TABLET 1 tab twice daily for 3 day, then one daily for three days PREDNISONE 20 MG ORAL TABLET 796621 PREDNISONE Inactive NIFEDIPINE ER 30 MG ORAL TABLET EXTENDED RELEASE 24 HOUR 1 daily NIFEDIPINE ER 30 MG ORAL TABLET EXTENDED RELEASE 24 HOUR NIFEDIPINE Inactive AMLODIPINE BESYLATE 5 MG ORAL TABLET 1 tablet by mouth daily 2016 AMLODIPINE BESYLATE 5 MG ORAL TABLET 137606 AMLODIPINE BESYLATE Inactive LASIX 20 MG ORAL TABLET 1 tablet by mouth every morning LASIX 20 MG ORAL TABLET 883796 FUROSEMIDE Inactive POTASSIUM CHLORIDE ER 10 MEQ ORAL CAPSULE EXTENDED RELEASE 1 capsule BID 2016 POTASSIUM CHLORIDE ER 10 MEQ ORAL CAPSULE EXTENDED RELEASE POTASSIUM CHLORIDE Inactive POTASSIUM CHLORIDE 20 MEQ ORAL PACKET 1 tab po q day POTASSIUM CHLORIDE 20 MEQ ORAL PACKET 9706358 POTASSIUM CHLORIDE Inactive AZITHROMYCIN 250 MG ORAL TABLET 2 po qd x 1 day, then 1 po qd x 4 days 04/06 AZITHROMYCIN 250 MG ORAL TABLET 459896 AZITHROMYCIN Inactive AZITHROMYCIN 250 MG ORAL TABLET 2 po qd x 1 day, then 1 po qd x 4 days 12/30 AZITHROMYCIN 250 MG ORAL TABLET 790937 AZITHROMYCIN Inactive PREDNISONE 20 MG ORAL TABLET 2 po qd x 5 days PREDNISONE 20 MG ORAL TABLET 165331 PREDNISONE Inactive Vital Signs Date Name Value [...] Panel - Chemistry sodium, serum 137 mmol/L 108-507 8860/01/03 potassium, serum 3.4 mmol/L 3.5-5.2 chloride, serum 102 mmol/L 98-107 carbon dioxide, venous blood 29.2 mmol/L 21.0-32.0 blood glucose 87 mg/dL 65-110 calcium, serum 8.5 mg/dL 8.5-10.1 urea nitrogen, blood 8 mg/dL 7-18 creatinine, serum 0.82 mg/dL 0.55-1.30 sodium, serum 140 mmol/L 225-827 4343/07/13 potassium, serum 3.2 mmol/L 3.5-5.2 chloride, serum 103 mmol/L 98-107 carbon dioxide, venous blood 26.9 mmol/L 21.0-32.0 blood glucose 93 mg/dL 65-110 calcium, serum 9.2 mg/dL 8.5-10.1 urea nitrogen, blood 13 mg/dL 7-18 creatinine, serum 0.84 mg/dL 0.60-1.30 sodium, serum 140 mmol/L 648-690 1473/08/21 potassium, serum 3.8 mmol/L 3.5-5.2 chloride, serum [...] ... - Chemistry sodium, serum 141 mmol/L 122-236 6492/08/07 carbon dioxide, venous blood 34.0 mmol/L 21.0-32.0 [...] 1.40 mg/dL 0.00-1.00 cholesterol, serum 192 mg/dL 685-230 7806/10/19 triglyceride, serum, fasting 71 mg/dL 30-200 HDL cholesterol, serum 72 mg/dL 32-60 LDL cholesterol, serum 106 mg/dL 0-130 Lab Report: THEOPHYLLINE - Toxicology theophylline level, serum 3.1 ug/mL 10.0-20.0 Encounters Code Encounter Date Provider Facility CPT-85352 Level 4 Est. Patient 14:45:[address] [facility] CPT-07672 Level 4 Est. Patient 09:15:13 CDT Harinder [facility] CPT-97920 Level 3 Est. Patient 11:51:58 CDT Harinder [facility] CPT-66361 Level 3 Est. Patient 11:30:05 CDT Harinder Hernandez [facility] CPT-08561 Level 4 Est. Patient 10:19:23 CDT Harinder Hernandez [facility] CPT-11891 Level 3 Est. Patient 09:58:[address] [facility] CPT-97740 Level 3 Est. Patient 12:37:21 CDT Harinder Hernandez [facility] CPT-91440 Level 3 Est. Patient 18:37:[address] [facility] CPT-79803 Level 4 Est. Patient 11:15:54 CDT Nettie King MAHENDRA [facility] CPT-96147 Level 3 Est. Patient 16:42:[address] [facility] CPT-75379 Level 3 Est. Patient 15:03:36 CDT Harinder Hernandez [facility] CPT-09938 Level 3 Est. Patient 15:03:[address] [facility] CPT-37853 Level 3 Est. Patient 12:14:34 CDT Harinder Hernandez [facility] CPT-95862 Level 3 Est. Patient 13:47:15 CDT Harinder Cr [facility] CPT-58186 Level 3 Est. Patient 14:08:24 CDT Harinder Hernandez [facility] CPT-49694 Level 3 Est. Patient 10:07:15 CDT Harinder Cr [facility] CPT-58419 Level 3 Est. Patient 10:06:59 CDT Harinder Hernandez [facility] CPT-37671 Level 3 Est. Patient 15:53:29 CDT Jae Morgan [facility] CPT-12227 Level 3 Est. Patient 17:19:04 CDT Harinder W David [facility] CPT-33089 Level 3 Est. Patient 11:13:01 CDT Harinder Hernandez [facility] CPT-49238 Level 3 Est. Patient 09:03:58 CDT Harinder Hernandez [facility] CPT-62249 Level 3 Est. Patient 14:46:45 [employer] Harinder Hernandez [facility] CPT-65808 Level 3 Est. Patient 09:35:49 [employer] Harinder Hernandez [facility] CPT-12291 Level 3 Est. Patient 09:29:37 [employer] Harinder Hernandez [facility] CPT-85806 Level 3 Est. Patient 15:51:07 CDT Harinder Hernandez [facility] CPT-71658 Level 3 Est. Patient 18:13:13 CDT Harinder Hernandez [facility] CPT-26981 Level 3 Est. Patient 10:44:19 CDT Harinder Hernandez [facility] CPT-81285 Level 4 Est. Patient 10:07:19 [employer] Harinder Hernandez [facility] CPT-14666 Level 3 Est. Patient 15:59:32 [employer] Harinder Hernandez [facility] Procedures Code Procedure Name Date Entry Date Standard Description CPT-75704 Abd compl w upright - XRAY USE ONLY 14:48:09 CDT 02/18 CPT-15417 Port a cath flush 13:46:05 CDT CPT-59947 Hip, complete, 2-3 views - XRAY USE ONLY 10:28:40 CDT CPT-98182 BMP - LAB USE ONLY 16:45:09 [employer] CPT-07064 Port a cath flush 12:00:13 [employer] CPT-TCMM Transitional Care Mgmt-Moderate 11:20:16 [employer] CPT-90984 First Vx - Ix admin for Medicare patients 17:35:15 CDT CPT-18328 Fluzone Preservative Free Intramuscular Suspension 17:35 :15 CDT CPT-58367 Microalbumin - LAB USE ONLY 11:52:05 CDT CPT-TCMM Transitional Care Mgmt-Moderate 11:33:57 CDT CPT-82283 No Charge Offi Visit 14:11:29 CDT CPT-88367 Magnesium - LAB USE ONLY 10:45:44 CDT CPT-07217 Lipid - LAB USE ONLY 10:45:44 CDT CPT-04011 CBC - LAB USE ONLY 10:45:44 CDT CPT-06032 Venipuncture Draw Fee 10:45:43 CDT CPT-79192 Venipuncture Draw Fee 18:21:27 CDT CPT-JTINJ Asp/Joint Injection 18:38:04 CDT CPT-03313 Immunization Each Additional Inj 17:38:04 CDT CPT-11535 Immunization Single Admin 17:38:04 CDT CPT-21428 Prevnar 13 17:38:04 CDT CPT-35605 Fluzone Quadrivalent preservative free (>=3yrs.) 17:38: 04 CDT CPT-61911 No Charge Offi Visit 11:14:03 CDT CPT-21374 Chest 2V Frontal and Lat 14:00:18 CDT CPT-OV Office Visit 16:10:28 CDT CPT-JTINJ Asp/Joint Injection 09:03:57 CDT CPT-Cryo Cryotherapy 09:35:49 [employer] CPT-JTINJ Asp/Joint Injection 09:34:45 [employer] CPT-J2930 Solu Medrol 125 mg (Methyl Prednisolone Sodium Succinate) 20:37:27 CDT CPT-98913 Abx/Therapy Injection 20:37:27 CDT CPT-26297 Port a cath flush 08:15:51 CDT CPT-73870 Port a cath flush 09:54:16 CDT CPT-78202 Port a cath flush 09:38:02 CDT CPT-25547 Port a cath flush 11:00:27 [employer]
--- OUTSIDE RECORDS SUMMARY | 2017-12-29 04:06 | XMS REPORT | Clinical Summary ---
Author Author Admin, QIE Organization [facility] Fluency Address Unknown Phone Unavailable Allergies, Adverse Reactions, [...] tab SL q5min PRN chest pain NITROGLYCERIN [id number] Active Meenu Alejo LPN Active THEOPHYLLINE ER 300 MG ORAL TABLET EXTENDED RELEASE 12 HOUR 1 po BID THEOPHYLLINE 86286608166 Active Kortney Mccain Active POTASSIUM CHLORIDE ER 20 MEQ ORAL TABLET EXTENDED RELEASE 1 po q day POTASSIUM CHLORIDE 66769795765 Active Kortney Mccain Active POTASSIUM CHLORIDE 20 MEQ ORAL PACKET 1 tab po q day POTASSIUM CHLORIDE 15816587306 No Longer Active Kortney Mccain Active POTASSIUM CHLORIDE ER 10 MEQ ORAL CAPSULE EXTENDED RELEASE 1 capsule BID 2016 POTASSIUM CHLORIDE 08569815287 No Longer Active Kortney Mccain Active LASIX 20 MG ORAL TABLET 1 tablet by mouth every morning FUROSEMIDE 37223623260 No Longer Active Kortney Mccain Active SPIRONOLACTONE 25 MG ORAL TABLET 1 tablet by mouth daily SPIRONOLACTONE 31698759872 Active Kortney Mccain Active FLUOXETINE HCL 10 MG ORAL CAPSULE 1 po qd for depression/anxiety FLUOXETINE HCL 55481647812 Active Harinder Hernandez DO Active VOLTAREN 1 % TRANSDERMAL GEL apply q 6-8 hour to left arm as needed for pain DICLOFENAC SODIUM 08141597004 Active Kortney Mccain Active ALBUTEROL SULFATE (2.5 MG/3ML) 0.083% INHALATION NEBULIZATION SOLUTION 1 vial neb q 4hrs for severe asthma. 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 NIFEDIPINE 14441354390 Active Kortney Mccain Active AMLODIPINE BESYLATE 5 MG ORAL TABLET 1 tablet by mouth daily 2016 AMLODIPINE BESYLATE 07539772135 No Longer Active Harinder Hernandez DO Active TOPAMAX 25 MG ORAL TABLET 1 tab po BID TOPIRAMATE 54656468561 Active Kortney Mccain Active FLUTICASONE PROPIONATE 50 MCG/ACT NASAL SUSPENSION 2 sprays per nostril daily PRN Allergies FLUTICASONE PROPIONATE 85183964576 Active Kortney Mccain Active NIFEDIPINE ER 30 MG ORAL TABLET EXTENDED RELEASE 24 HOUR 1 daily NIFEDIPINE 28102611147 No Longer Active Harinder Hernandez DO Active FLOVENT HFA 110 MCG/ACT INHALATION AEROSOL 2 puffs inhaled b.i.d. FLUTICASONE PROPIONATE HFA 43208417347 Active Harinder Hernandez DO Active EPIPEN 2-BRUNA 0.3 MG/0.3ML INJECTION SOLUTION AUTO-INJECTOR 1 INJ NEEDED EPINEPHRINE 56773521335 Active Kortney Mccain Active PREDNISONE 20 MG ORAL TABLET 1 tab twice daily for 3 day, then one daily for three days PREDNISONE 67287708701 No Longer Active Harinder Hernandez DO Active PREDNISONE 20 MG ORAL TABLET 1 tablet twice daily for 2 days, then 1 tablet once daily for 2 days PREDNISONE 39106787914 No Longer Active Harinder Hernandez DO Active ASMANEX 120 METERED DOSES 220 MCG/INH INHALATION AEROSOL POWDER BREATH ACTIVATED 2 puffs orally twice daily MOMETASONE FUROATE 27480338252 Active Jeri Sosa LPN Active TOPIRAMATE 25 MG ORAL TABLET 1 tab po BID TOPIRAMATE 05888924743 No Longer Active Nettie Newberry APRN Active AMLODIPINE BESYLATE 5 MG ORAL TABLET Take 1 tab po daily AMLODIPINE BESYLATE 18003442426 No Longer Active Nettie Newberry APRN Active MECLIZINE HCL 25 MG ORAL TABLET 1 tablet three times daily for 3 days, then 1/ 2 tab three times daily for 3 days. MECLIZINE HCL 35066537261 No Longer Active Nettie Newberry MAHENDRA Active AMITRIPTYLINE HCL 25 MG ORAL TABLET 1 q hs prn AMITRIPTYLINE HCL 79639770418 No Longer Active Nettie Newberry MAHENDRA Active DILAUDID 2 MG ORAL TABLET Take 1/2 tab po every 4 hours as needed for pain HYDROMORPHONE HCL 73214544507 No Longer Active Nettie Newberry APRN Active CLOPIDOGREL BISULFATE 75 MG ORAL TABLET 1 tab by mouth once daily CLOPIDOGREL BISULFATE 78982251383 Active Harinder Hernandez DO Active ATORVASTATIN CALCIUM 10 MG ORAL TABLET 1 at bedtime ATORVASTATIN CALCIUM 11733111519 Active Kortney Mccain Active LOVASTATIN 40 MG ORAL TABLET Take 1 tab po every hs LOVASTATIN 62051637975 No Longer Active Harinder Hernandez DO Active PREDNISONE 20 MG ORAL TABLET 2 tabs daily for 4 days, 1 tab daily for 4 days, 1/2 tab daily for 4 days PREDNISONE 09709005044 No Longer Active Harinder Hernandez DO Active LEVAQUIN 500 MG ORAL TABLET Take 1 tab po daily x 8 days LEVOFLOXACIN 28166977276 No Longer Active Harinder Hernandez DO Active VENTOLIN HFA 108 (90 Base) MCG/ACT INHALATION AEROSOL SOLUTION 2 -4 puffs four times a day PRN ALBUTEROL SULFATE 72903218101 No Longer Active Jeri Sosa LPN Active ACEBUTOLOL HCL 200 MG ORAL CAPSULE 1 cap in the morning and 2 caps in the evening ACEBUTOLOL HCL 06723130575 No Longer Active Harinder Hernandez DO Active CEFDINIR 300 MG ORAL CAPSULE take 1 cap po bid x 10 days CEFDINIR 95008237790 No Longer Active Harinder Hernandez DO Active LOVASTATIN 40 MG ORAL TABLET 1 pill by mouth nightly for cholesterol LOVASTATIN 12052765566 No Longer Active Nettie Newberry APRN Active NITROSTAT 0.4 MG SUBLINGUAL TABLET SUBLINGUAL 1 tab under tongueas needed for chest pain ( may take 3 total, 5 min apart, then call 911) NITROGLYCERIN 09942129617 No Longer Active Nettie Newberry APRN Active POTASSIUM CHLORIDE ER 10 MEQ ORAL CAPSULE EXTENDED RELEASE 1 capsule by mouth daily POTASSIUM CHLORIDE 43088461384 No Longer Active Nettie Newberry APRN Active TESSALON PERLES 100 MG ORAL CAPSULE 1 to 2 tablets by mouth 3 times daily as needed for cough BENZONATATE 16471171203 No Longer Active Nettie Newberry APRN Active PREDNISONE 20 MG ORAL TABLET 2 po qd x 5 days PREDNISONE 70875445411 No Longer Active Jae Morgan MD Active AZITHROMYCIN 250 MG ORAL TABLET 2 po qd x 1 day, then 1 po qd x 4 days 12/30 AZITHROMYCIN 84271061381 No Longer Active Jae Morgan MD Active PREDNISONE 20 MG ORAL TABLET 1 tab twice daily for 3 day, then one daily for three days PREDNISONE 61609732015 No Longer Active Jae Morgan MD Active SINGULAIR 10 MG ORAL TABLET 1 pill by mouth every evening for breathing. 2014 MONTELUKAST SODIUM 84264441376 Active Kortney Mccain Active TYLENOL 325 MG ORAL TABLET 3 by mouth q4h as needed ACETAMINOPHEN 55281370419 Active Harinder Hernandez DO Active POTASSIUM CHLORIDE ER 10 MEQ ORAL TABLET EXTENDED RELEASE take 1 tab po daily POTASSIUM CHLORIDE 66408586846 No Longer Active Harinder Hernandez DO Active PREDNISONE 20 MG ORAL TABLET 1 TID x 2 days, then 1 BID x 3 days, then 1 Daily x 3 days, then stop PREDNISONE 02772862417 No Longer Active John Montemayor APRN Active LEVAQUIN 500 MG ORAL TABLET 1 tablet by mouth daily LEVOFLOXACIN 40334726391 No Longer Active Jillina Frazell VASCULAR TECHNOLOGIST SONOGRAPHER Active NEURONTIN 300 MG ORAL CAPSULE 1 cap by mouth three times daily for restless leg GABAPENTIN 50631856320 No Longer Active Harinder Hernandez DO Active BENZONATATE 100 MG ORAL CAPSULE 1 cap po TID PRN BENZONATATE 48993115929 No Longer Active Harinder Hernandez DO Active MONTELUKAST SODIUM 10 MG ORAL TABLET 1 tab po in the evening 2014 MONTELUKAST SODIUM 79442256323 No Longer Active Harinder Hernandez DO Active MUPIROCIN 2 % EXTERNAL OINTMENT apply to affected area BID x 14 days MUPIROCIN 71129355143 No Longer Active Harinder Hernandez DO Active TYLENOL EXTRA STRENGTH 500 MG ORAL TABLET as needed ACETAMINOPHEN 75904293304 No Longer Active Harinder Hernandez DO Active PREDNISONE 10 MG ORAL TABLET 1 tab po daily PREDNISONE 33696111573 No Longer Active Harinder Hernandez DO Active PREDNISONE 20 MG ORAL TABLET 2 tabs daily for 4 days, 1 tab daily for 4 days, 1/2 tab daily for 4 days PREDNISONE 97834893397 No Longer Active Harinder Hernandez DO Active AZITHROMYCIN 250 MG ORAL TABLET 2 po qd x 1 day, then 1 po qd x 4 days 04/06 AZITHROMYCIN 01484951609 No Longer Active Harinder Hernandez DO Active PREDNISONE 20 MG ORAL TABLET 3 tabs today, then 1 tab twice daily for 3 day, then one daily for three days PREDNISONE 40237480998 No Longer Active Harinder Hernandez DO Active NIFEDIAC CC 30 MG ORAL TABLET EXTENDED RELEASE 24 HOUR 1 tablet daily for raynaud's syndrome NIFEDIPINE 70664117358 No Longer Active Tawnya Pardo MA Active AMBIEN 10 MG ORAL TABLET 1/2 tab by mouth at bedtime as needed for sleep 2013 ZOLPIDEM TARTRATE 64401450957 Active Kortney Mccain Active CLONAZEPAM 1 MG ORAL TABLET 1 tablet at bedtime for insomnia and restless legs CLONAZEPAM 61958375721 Active Harinder Hernandez DO Active CLONAZEPAM 0.5 MG ORAL TABLET 1 tab po daily CLONAZEPAM 39261705932 No Longer Active Harinder Hernandez DO Active PREDNISONE 10 MG ORAL TABLET 1 tablet daily for COPD PREDNISONE 54708009118 Active Kortney Mccain Active PROAIR HFA 108 (90 Base) MCG/ACT INHALATION AEROSOL SOLUTION 2 puffs four times a day as needed ALBUTEROL SULFATE 15051574616 Active Harinder Hernandez DO Active FLOVENT HFA 110 MCG/ACT INHALATION AEROSOL 2 puffs inhaled b.i.d. FLUTICASONE PROPIONATE HFA 20558889506 Active Kortney Mccain Active ACIPHEX 20 MG ORAL TABLET DELAYED RELEASE 1 tab po daily RABEPRAZOLE SODIUM 37125124252 Active Kaylah Newberry Active CLONAZEPAM 0.5 MG ORAL TABLET 1 tab po daily CLONAZEPAM 0.5 MG ORAL TABLET 353765 CLONAZEPAM Inactive PREDNISONE 20 MG ORAL TABLET 3 tabs today, then 1 tab twice daily for 3 day, then one daily for three days PREDNISONE 20 MG ORAL TABLET 366172 PREDNISONE Inactive PREDNISONE 20 MG ORAL TABLET 2 tabs daily for 4 days, 1 tab daily for 4 days, 1/2 tab daily for 4 days PREDNISONE 20 MG ORAL TABLET 505959 PREDNISONE Inactive PREDNISONE 10 MG ORAL TABLET 1 tab po daily PREDNISONE 10 MG ORAL TABLET 246269 PREDNISONE Inactive TYLENOL EXTRA STRENGTH 500 MG ORAL TABLET as needed TYLENOL EXTRA STRENGTH 500 MG ORAL TABLET 897776 ACETAMINOPHEN Inactive MUPIROCIN 2 % EXTERNAL OINTMENT apply to affected area BID x 14 days MUPIROCIN 2 % EXTERNAL OINTMENT 769683 MUPIROCIN Inactive MONTELUKAST SODIUM 10 MG ORAL TABLET 1 tab po in the evening 2014 MONTELUKAST SODIUM 10 MG ORAL TABLET 432559 MONTELUKAST SODIUM Inactive BENZONATATE 100 MG ORAL CAPSULE 1 cap po TID PRN BENZONATATE 100 MG ORAL CAPSULE 203535 BENZONATATE Inactive NEURONTIN 300 MG ORAL CAPSULE 1 cap by mouth three times daily for restless leg NEURONTIN 300 MG ORAL CAPSULE 371351 GABAPENTIN Inactive LEVAQUIN 500 MG ORAL TABLET 1 tablet by mouth daily LEVAQUIN 500 MG ORAL TABLET 532684 LEVOFLOXACIN Inactive PREDNISONE 20 MG ORAL TABLET 1 TID x 2 days, then 1 BID x 3 days, then 1 Daily x 3 days, then stop PREDNISONE 20 MG ORAL TABLET 601554 PREDNISONE Inactive POTASSIUM CHLORIDE ER 10 MEQ ORAL TABLET EXTENDED RELEASE take 1 tab po daily POTASSIUM CHLORIDE ER 10 MEQ ORAL TABLET EXTENDED RELEASE POTASSIUM CHLORIDE Inactive PREDNISONE 20 MG ORAL TABLET 1 tab twice daily for 3 day, then one daily for three days PREDNISONE 20 MG ORAL TABLET 641332 PREDNISONE Inactive TESSALON PERLES 100 MG ORAL CAPSULE 1 to 2 tablets by mouth 3 times daily as needed for cough TESSALON PERLES 100 MG ORAL CAPSULE 784457 BENZONATATE Inactive POTASSIUM CHLORIDE ER 10 MEQ ORAL CAPSULE EXTENDED RELEASE 1 capsule by mouth daily POTASSIUM CHLORIDE ER 10 MEQ ORAL CAPSULE EXTENDED RELEASE POTASSIUM CHLORIDE Inactive NITROSTAT 0.4 MG SUBLINGUAL TABLET SUBLINGUAL 1 tab under tongueas needed for chest pain ( may take 3 total, 5 min apart, then call 911) NITROSTAT 0.4 MG SUBLINGUAL TABLET SUBLINGUAL 124901 NITROGLYCERIN Inactive LOVASTATIN 40 MG ORAL TABLET 1 pill by mouth nightly for cholesterol LOVASTATIN 40 MG ORAL TABLET 895936 LOVASTATIN Inactive CEFDINIR 300 MG ORAL CAPSULE take 1 cap po bid x 10 days CEFDINIR 300 MG ORAL CAPSULE 727356 CEFDINIR Inactive ACEBUTOLOL HCL 200 MG ORAL CAPSULE 1 cap in the morning and 2 caps in the evening ACEBUTOLOL HCL 200 MG ORAL CAPSULE 846482 ACEBUTOLOL HCL Inactive VENTOLIN HFA 108 (90 Base) MCG/ACT INHALATION AEROSOL SOLUTION 2 -4 puffs four times a day PRN VENTOLIN HFA 108 (90 Base) MCG/ ACT INHALATION AEROSOL SOLUTION ALBUTEROL SULFATE Inactive LEVAQUIN 500 MG ORAL TABLET Take 1 tab po daily x 8 days LEVAQUIN 500 MG ORAL TABLET 167992 LEVOFLOXACIN Inactive PREDNISONE 20 MG ORAL TABLET 2 tabs daily for 4 days, 1 tab daily for 4 days, 1/2 tab daily for 4 days PREDNISONE 20 MG ORAL TABLET 504810 PREDNISONE Inactive LOVASTATIN 40 MG ORAL TABLET Take 1 tab po every hs LOVASTATIN 40 MG ORAL TABLET 638708 LOVASTATIN Inactive DILAUDID 2 MG ORAL TABLET Take 1/2 tab po every 4 hours as needed for pain DILAUDID 2 MG ORAL TABLET 946439 HYDROMORPHONE HCL Inactive AMITRIPTYLINE HCL 25 MG ORAL TABLET 1 q hs prn AMITRIPTYLINE HCL 25 MG ORAL TABLET 364015 AMITRIPTYLINE HCL Inactive MECLIZINE HCL 25 MG ORAL TABLET 1 tablet three times daily for 3 days, then 1/ 2 tab three times daily for 3 days. MECLIZINE HCL 25 MG ORAL TABLET 272180 MECLIZINE HCL Inactive AMLODIPINE BESYLATE 5 MG ORAL TABLET Take 1 tab po daily AMLODIPINE BESYLATE 5 MG ORAL TABLET 204556 AMLODIPINE BESYLATE Inactive TOPIRAMATE 25 MG ORAL TABLET 1 tab po BID TOPIRAMATE 25 MG ORAL TABLET 377713 TOPIRAMATE Inactive PREDNISONE 20 MG ORAL TABLET 1 tablet twice daily for 2 days, then 1 tablet once daily for 2 days PREDNISONE 20 MG ORAL TABLET 836366 PREDNISONE Inactive PREDNISONE 20 MG ORAL TABLET 1 tab twice daily for 3 day, then one daily for three days PREDNISONE 20 MG ORAL TABLET 771123 PREDNISONE Inactive NIFEDIPINE ER 30 MG ORAL TABLET EXTENDED RELEASE 24 HOUR 1 daily NIFEDIPINE ER 30 MG ORAL TABLET EXTENDED RELEASE 24 HOUR NIFEDIPINE Inactive AMLODIPINE BESYLATE 5 MG ORAL TABLET 1 tablet by mouth daily 2016 AMLODIPINE BESYLATE 5 MG ORAL TABLET 285368 AMLODIPINE BESYLATE Inactive LASIX 20 MG ORAL TABLET 1 tablet by mouth every morning LASIX 20 MG ORAL TABLET 342924 FUROSEMIDE Inactive POTASSIUM CHLORIDE ER 10 MEQ ORAL CAPSULE EXTENDED RELEASE 1 capsule BID 2016 POTASSIUM CHLORIDE ER 10 MEQ ORAL CAPSULE EXTENDED RELEASE POTASSIUM CHLORIDE Inactive POTASSIUM CHLORIDE 20 MEQ ORAL PACKET 1 tab po q day POTASSIUM CHLORIDE 20 MEQ ORAL PACKET 1777466 POTASSIUM CHLORIDE Inactive AZITHROMYCIN 250 MG ORAL TABLET 2 po qd x 1 day, then 1 po qd x 4 days 04/06 AZITHROMYCIN 250 MG ORAL TABLET 331388 AZITHROMYCIN Inactive AZITHROMYCIN 250 MG ORAL TABLET 2 po qd x 1 day, then 1 po qd x 4 days 12/30 AZITHROMYCIN 250 MG ORAL TABLET 215003 AZITHROMYCIN Inactive PREDNISONE 20 MG ORAL TABLET 2 po qd x 5 days PREDNISONE 20 MG ORAL TABLET 890692 PREDNISONE Inactive Vital Signs Date Name Value [...] Lab Report: Basic Metabolic Panel - Chemistry chloride, serum 102 mmol/L 98-107 potassium, serum 3.4 mmol/L 3.5-5.2 sodium, serum 137 mmol/L 682-374 9520/01/03 carbon dioxide, venous blood 29.2 mmol/L 21.0-32.0 blood glucose 87 mg/dL 65-110 creatinine, serum 0.82 mg/dL 0.55-1.30 urea nitrogen, blood 8 mg/dL 7-18 calcium, serum 8.5 mg/dL 8.5-10.1 sodium, serum 140 mmol/L 364-224 1526/07/13 potassium, serum 3.2 mmol/L 3.5-5.2 chloride, serum 103 mmol/L 98-107 carbon dioxide, venous blood 26.9 mmol/L 21.0-32.0 blood glucose 93 mg/dL 65-110 calcium, serum 9.2 mg/dL 8.5-10.1 urea nitrogen, blood 13 mg/dL 7-18 creatinine, serum 0.84 mg/dL 0.60-1.30 sodium, serum 140 mmol/L 265-234 6927/08/21 urea nitrogen, blood 11 mg/dL 7-18 creatinine, [...] ... - Chemistry sodium, serum 141 mmol/L 187-044 7856/08/07 TSH 0.80 m[iU]/mL 0.36-3.74 carbon dioxide, venous blood 34.0 mmol/L 21.0-32.0 potassium, serum 2.7 mmol/L 3.5-5.2 chloride, serum 99 mmol/L 98-107 blood glucose 88 mg/dL 65-110 urea nitrogen, blood 11 mg/dL 7-18 creatinine, serum 0.97 mg/dL 0.60-1.30 alanine aminotransferase (SGPT), serum 24 U/L 12-78 aspartate aminotransferase (SGOT), serum 24 U/L 15-37 calcium, serum 9.2 mg/dL 8.5-10.1 bilirubin, serum, total 0.90 mg/dL 0.00-1.00 Lab Report: HEPATIC PANEL, Lipid Panel - Chemistry cholesterol, serum 192 mg/dL 367-812 9334/10/19 aspartate aminotransferase (SGOT), serum 19 U/L 15-37 alanine aminotransferase (SGPT), serum 23 U/L 12-78 bilirubin, serum, total 1.40 mg/dL 0.00-1.00 triglyceride, serum, fasting 71 mg/dL 30-200 HDL cholesterol, serum 72 mg/dL 32-60 LDL cholesterol, serum 106 mg/dL 0-130 Lab Report: THEOPHYLLINE - Toxicology theophylline level, serum 3.1 ug/mL 10.0-20.0 Encounters Code Encounter Date Provider Facility CPT-03764 Level 4 Est. Patient 14:45:25 CDT Harinder Hernandez DO [facility] CPT-39977 Level 4 Est. Patient 09:15:13 CDT Harinder Hernandez [facility] CPT-32106 Level 3 Est. Patient 11:51:58 CDT Harinder Hernandez [facility] CPT-55715 Level 3 Est. Patient 11:30:05 CDT Harinder Hernandez [facility] CPT-15998 Level 4 Est. Patient 10:19:23 CDT Harinder Hernandez [facility] CPT-73969 Level 3 Est. Patient 09:58:58 CDT Harinder Cr [facility] CPT-26369 Level 3 Est. Patient 12:37:21 CDT Harinder Cr [facility] CPT-85291 Level 3 Est. Patient 18:37:17 CDT Harinder Cr [facility] CPT-53745 Level 4 Est. Patient 11:15:54 CDT Nettie Newberry [facility] CPT-15563 Level 3 Est. Patient 16:42:24 CDT Harinder Cr [facility] CPT-50037 Level 3 Est. Patient 15:03:36 CDT Harinder Cr [facility] CPT-41035 Level 3 Est. Patient 15:03:20 CDT Harinder Cr [facility] CPT-74977 Level 3 Est. Patient 12:14:34 CDT Harinder Hernandez [facility] CPT-38879 Level 3 Est. Patient 13:47:15 CDT Harinder Cr [facility] CPT-91932 Level 3 Est. Patient 14:08:24 CDT Harinder Cr [facility] CPT-63459 Level 3 Est. Patient 10:07:15 CDT Harinder Cr [facility] CPT-83333 Level 3 Est. Patient 10:06:59 CDT Harinder Cr [facility] CPT-41966 Level 3 Est. Patient 15:53:29 CDT Jae Morgan MD [facility] CPT-31645 Level 3 Est. Patient 17:19:04 CDT Harinder Hernandez [facility] CPT-01381 Level 3 Est. Patient 11:13:01 CDT Harinder Hernandez [facility] CPT-64642 Level 3 Est. Patient 09:03:58 CDT Harinder Hernandez [facility] CPT-66241 Level 3 Est. Patient 14:46:45 MANAGER PROCESS IMPROVEMENT Harinder Hernandez [facility] CPT-80119 Level 3 Est. Patient 09:35:49 MANAGER PROCESS IMPROVEMENT Harinder Shaye David [facility] CPT-43976 Level 3 Est. Patient 09:29:37 MANAGER PROCESS IMPROVEMENT Harinder Hernandez [facility] CPT-76213 Level 3 Est. Patient 15:51:07 CDT Harinder Hernandez [facility] CPT-73460 Level 3 Est. Patient 18:13:13 CDT Harinder Cr [facility] CPT-30845 Level 3 Est. Patient 10:44:19 CDT Harinder Hernandez [facility] CPT-35814 Level 4 Est. Patient 10:07:19 MANAGER PROCESS IMPROVEMENT Harinder Cr [facility] CPT-73831 Level 3 Est. Patient 15:59:32 MANAGER PROCESS IMPROVEMENT Harinder Cr [facility] Procedures Code Procedure Name Date Entry Date Standard Description CPT-75831 Abd compl w upright - XRAY USE ONLY 14:48:09 CDT 02/18 CPT-67633 Port a cath flush 13:46:05 CDT CPT-26764 Hip, complete, 2-3 views - XRAY USE ONLY 10:28:40 CDT CPT-47837 BMP - LAB USE ONLY 16:45:09 MANAGER PROCESS IMPROVEMENT CPT-47929 Port a cath flush 12:00:13 MANAGER PROCESS IMPROVEMENT CPT-TCMM Transitional Care Mgmt-Moderate 11:20:16 MANAGER PROCESS IMPROVEMENT CPT-45388 First Vx - Ix admin for Medicare patients 17:35:15 CDT CPT-33305 Fluzone Preservative Free Intramuscular Suspension 17:35 :15 CDT CPT-57245 Microalbumin - LAB USE ONLY 11:52:05 CDT CPT-TCMM Transitional Care Mgmt-Moderate 11:33:57 CDT CPT-06991 No Charge Offi Visit 14:11:29 CDT CPT-44970 Magnesium - LAB USE ONLY 10:45:44 CDT CPT-37271 Lipid - LAB USE ONLY 10:45:44 CDT CPT-82826 CBC - LAB USE ONLY 10:45:44 CDT CPT-59542 Venipuncture Draw Fee 10:45:43 CDT CPT-11867 Venipuncture Draw Fee 18:21:27 CDT CPT-JTINJ Asp/Joint Injection 18:38:04 CDT CPT-21026 Immunization Each Additional Inj 17:38:04 CDT CPT-00304 Immunization Single Admin 17:38:04 CDT CPT-12520 Prevnar 13 17:38:04 CDT CPT-49785 Fluzone Quadrivalent preservative free (>=3yrs.) 17:38: 04 CDT CPT-45183 No Charge Offi Visit 11:14:03 CDT CPT-81719 Chest 2V Frontal and Lat 14:00:18 CDT CPT-OV Office Visit 16:10:28 CDT CPT-JTINJ Asp/Joint Injection 09:03:57 CDT CPT-Cryo Cryotherapy 09:35:49 MANAGER PROCESS IMPROVEMENT CPT-JTINJ Asp/Joint Injection 09:34:45 MANAGER PROCESS IMPROVEMENT CPT-J2930 Solu Medrol 125 mg (Methyl Prednisolone Sodium Succinate) 20:37:27 CDT CPT-51121 Abx/Therapy Injection 20:37:27 CDT CPT-27111 Port a cath flush 08:15:51 CDT CPT-25122 Port a cath flush 09:54:16 CDT CPT-77266 Port a cath flush 09:38:02 CDT CPT-87391 Port a cath flush 11:00:27 MANAGER PROCESS IMPROVEMENT
--- OUTSIDE RECORDS SUMMARY | 2017-12-29 04:07 | XMS REPORT | Clinical Summary ---
Author Author Admin, QIE Organization [facility] [employer] Address Unknown Phone Unavailable Allergies, Adverse Reactions, [...] Harinder Hernandez DO ASA Critical Active Harinder Hernanedz DO PHENERGAN Critical Active Harinder Hernandez DO VALIUM Critical Active Harinder Hernandez DO DEMEROL Critical Active Harinder Hernandze DO SULFA Critical Active Harinder Hernandez DO [...] per nostril daily PRN Allergies FLUTICASONE PROPIONATE 89682406245 Active Kortney Mccain Active ALBUTEROL SULFATE 0.083 % NEBU SOLN 1 vial neb q 4hrs PRN Wheezing Dx: J44.1 ALBUTEROL SULFATE 85396439668 Active Kortney Mccain Active AMLODIPINE BESYLATE 5 MG TABS 1 tablet by mouth daily AMLODIPINE BESYLATE 72089193125 Active Harinder Hernandez DO Active NIFEDIPINE ER 30 MG ORAL [id number] 1 daily NIFEDIPINE 47896808511 No Longer Active Harinder Hernandez DO Active POTASSIUM CHLORIDE 20 MEQ ORAL PACK Take 1 tablet by mouth daily POTASSIUM CHLORIDE 88269692640 Active Ciear Pimentel Active FLOVENT HFA 110 MCG/ACT AERO 2 puffs inhaled b.i.d. FLUTICASONE PROPIONATE HFA 81297976204 Active Harinder Hernandez DO Active POTASSIUM CHLORIDE CR 10 MEQ CPCR 1 capsule by mouth daily POTASSIUM CHLORIDE 85225446759 Active Harinder Hernandez DO Active EPIPEN 2-BRUNA 0.3 MG/0.3ML INJ SOAJ 1 INJ NEEDED EPINEPHRINE 65522939319 Active Harinder Hernandez DO Active PREDNISONE 20 MG TAB 1 tab twice daily for 3 day, then one daily for three days PREDNISONE 27666334093 No Longer Active Harinder Hernandez DO Active PREDNISONE 20 MG TAB 1 tablet twice daily for 2 days, then 1 tablet once daily for 2 days PREDNISONE 33433505414 No Longer Active Harinder Hernandez DO Active ASMANEX 120 METERED DOSES 220 MCG/INH INH AEPB 2 puffs orally twice daily MOMETASONE FUROATE 17866618289 Active Jeri Sosa RPT,RMA Active TOPIRAMATE 25 MG TABS 1 tab po BID TOPIRAMATE 61707219389 No Longer Active Nettie Newberry APRN Active AMLODIPINE BESYLATE 5 MG ORAL TABS Take 1 tab po daily AMLODIPINE BESYLATE 58010943191 No Longer Active Nettie Newberry APRN Active MECLIZINE HCL 25 MG TAB 1 tablet three times daily for 3 days, then 1/2 tab three times daily for 3 days. MECLIZINE HCL 04474976884 No Longer Active Nettie Newberry APRN Active AMITRIPTYLINE HCL 25 MG ORAL TABS 1 q hs prn AMITRIPTYLINE HCL 19518780863 No Longer Active Nettie Newberry APRN Active DILAUDID 2 MG ORAL TABS Take 1/2 tab po every 4 hours as needed for pain 2014 HYDROMORPHONE HCL 12999392577 No Longer Active Nettie Newberry MAHENDRA Active CLOPIDOGREL BISULFATE 75 MG ORAL TABS 1 tab by mouth once daily CLOPIDOGREL BISULFATE 25357189242 Active Harinder Hernandez DO Active ATORVASTATIN CALCIUM 10 MG ORAL TABS 1 at bedtime ATORVASTATIN CALCIUM 52004503539 Active Tawnya Pardo MA Active LOVASTATIN 40 MG ORAL TABS Take 1 tab po every hs LOVASTATIN 52416670195 No Longer Active Harinder Hernandez DO Active PREDNISONE 20 MG TAB 2 tabs daily for 4 days, 1 tab daily for 4 days, 1/2 tab daily for 4 days PREDNISONE 64101952161 No Longer Active Harinder Hernandez DO Active LEVAQUIN 500 MG ORAL TABS Take 1 tab po daily x 8 days LEVOFLOXACIN 30066239431 No Longer Active Harinder Hernandez DO Active VENTOLIN HFA 108 (90 BASE) MCG/ACT AERS 2 -4 puffs four times a day PRN 2013 ALBUTEROL SULFATE 89064608139 No Longer Active Jeri Sosa RPT,RMA Active ACEBUTOLOL HCL 200 MG CAPS 1 cap in the morning and 2 caps in the evening ACEBUTOLOL HCL 82561161350 No Longer Active Harinder Hernandez DO Active CEFDINIR 300 MG ORAL CAPS take 1 cap po bid x 10 days CEFDINIR 14077650591 No Longer Active Harinder Hernandez DO Active LOVASTATIN 40 MG TABS 1 pill by mouth nightly for cholesterol LOVASTATIN 61408543292 No Longer Active Nettie Newberry APRN Active NITROSTAT 0.4 MG SUBL 1 tab under tongueas needed for chest pain ( may take 3 total, 5 min apart, then call 911) NITROGLYCERIN 06862619933 No Longer Active Nettie Newberry APRN Active POTASSIUM CHLORIDE CR 10 MEQ CPCR 1 capsule by mouth daily 02/14 POTASSIUM CHLORIDE 53367639675 No Longer Active Nettie Newberry APRN Active TESSALON PERLES 100 MG CAP 1 to 2 tablets by mouth 3 times daily as needed for cough BENZONATATE 88296235563 No Longer Active Nettie Newberry APRN Active THEOPHYLLINE ER 200 MG ORAL [id number] Take 1 tab every 12 hours THEOPHYLLINE 27384093521 Active Tawnya Pardo MA Active PREDNISONE 20 MG TAB 2 po qd x 5 days PREDNISONE 45197274865 No Longer Active Jae Morgan MD Active AZITHROMYCIN 250 MG TABS 2 po qd x 1 day, then 1 po qd x 4 days AZITHROMYCIN 50457737591 No Longer Active Jae Morgan MD Active PREDNISONE 20 MG TAB 1 tab twice daily for 3 day, then one daily for three days PREDNISONE 31876453300 No Longer Active Jae Morgan MD Active SINGULAIR 10 MG TABS 1 pill by mouth every evening for breathing. MONTELUKAST SODIUM 22069779716 Active Tawnya Pardo MA Active TYLENOL 325 MG TAB 3 by mouth q4h as needed ACETAMINOPHEN 20953575843 Active Harinder Hernandez DO Active POTASSIUM CHLORIDE ER 10 MEQ CR-TABS take 1 tab po daily POTASSIUM CHLORIDE 74851953280 No Longer Active Harinder Hernandez DO Active PREDNISONE 20 MG TAB 1 TID x 2 days, then 1 BID x 3 days, then 1 Daily x 3 days, then stop PREDNISONE 78892590422 No Longer Active Jillina Frazellor VICTIM ADVOCATE Active LEVAQUIN 500 MG TAB 1 tablet by mouth daily LEVOFLOXACIN 87110438905 No Longer Active Jillina Frazell VICTIM ADVOCATE Active NEURONTIN 300 MG CAP 1 cap by mouth three times daily for restless leg 06/22 GABAPENTIN 73784736804 No Longer Active Harinder Hernandez DO Active BENZONATATE 100 MG CAPS 1 cap po TID PRN BENZONATATE 26923517011 No Longer Active Harinder Hernandez DO Active MONTELUKAST SODIUM 10 MG TABS 1 tab po in the evening MONTELUKAST SODIUM 05375278434 No Longer Active Harinder Hernandez DO Active MUPIROCIN 2 % OINT apply to affected area BID x 14 days MUPIROCIN 94151943769 No Longer Active Harinder Hernandez DO Active TYLENOL EXTRA STRENGTH 500 MG TABS as needed ACETAMINOPHEN 42490371526 No Longer Active Harinder Hernandez DO Active PREDNISONE 10 MG TABS 1 tab po daily PREDNISONE 24188370153 No Longer Active Harinder Hernandez DO Active PREDNISONE 20 MG TAB 2 tabs daily for 4 days, 1 tab daily for 4 days, 1/2 tab daily for 4 days PREDNISONE 64499409418 No Longer Active Harinder Hernandez DO Active AZITHROMYCIN 250 MG TABS 2 po qd x 1 day, then 1 po qd x 4 days AZITHROMYCIN 07700926677 No Longer Active Harinder Hernandez DO Active PREDNISONE 20 MG TAB 3 tabs today, then 1 tab twice daily for 3 day, then one daily for three days PREDNISONE 72925546058 No Longer Active Harinder Hernandez DO Active NIFEDIAC CC 30 MG [id number] 1 tablet daily for raynaud's syndrome NIFEDIPINE 20638359449 No Longer Active Tawnya Pardo MA Active AMBIEN 10 MG TAB 1/2 tab by mouth at bedtime as needed for sleep ZOLPIDEM TARTRATE 66280591123 Active Kortney Mccain Active CLONAZEPAM 1 MG TABS 1 tablet at bedtime for insomnia and restless legs 09/14 CLONAZEPAM 49080605241 Active Harinder Hernandez DO Active CLONAZEPAM 0.5 MG TABS 1 tab po daily CLONAZEPAM 24210069394 No Longer Active Harinder Hernandez DO Active PREDNISONE 10 MG TAB 1 tablet daily for COPD PREDNISONE 08381502579 Active Ciera Pimentel Active PROAIR HFA 108 (90 BASE) MCG/ACT AERS 2 puffs four times a day as needed 2012 ALBUTEROL SULFATE 38804010781 Active Harinder Hernandez DO Active FLOVENT HFA 110 MCG/ACT AERO 2 puffs inhaled b.i.d. FLUTICASONE PROPIONATE HFA 06203264600 Active Kortney Mccain Active ACIPHEX 20 MG TBEC 1 tab po daily RABEPRAZOLE SODIUM 00726048645 Active Kaylah Newberry Active CLONAZEPAM 0.5 MG TABS 1 tab po daily CLONAZEPAM 0.5 MG TABS 366039 CLONAZEPAM Inactive PREDNISONE 20 MG TAB 3 tabs today, then 1 tab twice daily for 3 day, then one daily for three days PREDNISONE 20 MG TAB 962059 PREDNISONE Inactive PREDNISONE 20 MG TAB 2 tabs daily for 4 days, 1 tab daily for 4 days, 1/2 tab daily for 4 days PREDNISONE 20 MG TAB 505651 PREDNISONE Inactive PREDNISONE 10 MG TABS 1 tab po daily PREDNISONE 10 MG TABS 500071 PREDNISONE Inactive TYLENOL EXTRA STRENGTH 500 MG TABS as needed TYLENOL EXTRA STRENGTH 500 MG TABS 421551 ACETAMINOPHEN Inactive MUPIROCIN 2 % OINT apply to affected area BID x 14 days MUPIROCIN 2 % OINT 518684 MUPIROCIN Inactive MONTELUKAST SODIUM 10 MG TABS 1 tab po in the evening MONTELUKAST SODIUM 10 MG TABS 20010818 MONTELUKAST SODIUM Inactive BENZONATATE 100 MG CAPS 1 cap po TID PRN BENZONATATE 100 MG CAPS 725846 BENZONATATE Inactive NEURONTIN 300 MG CAP 1 cap by mouth three times daily for restless leg 06/22 NEURONTIN 300 MG CAP 532974 GABAPENTIN Inactive LEVAQUIN 500 MG TAB 1 tablet by mouth daily LEVAQUIN 500 MG TAB 908054 LEVOFLOXACIN Inactive PREDNISONE 20 MG TAB 1 TID x 2 days, then 1 BID x 3 days, then 1 Daily x 3 days, then stop PREDNISONE 20 MG TAB 426597 PREDNISONE Inactive POTASSIUM CHLORIDE ER 10 MEQ CR-TABS take 1 tab po daily POTASSIUM CHLORIDE ER 10 MEQ CR-TABS POTASSIUM CHLORIDE Inactive PREDNISONE 20 MG TAB 1 tab twice daily for 3 day, then one daily for three days PREDNISONE 20 MG TAB 676279 PREDNISONE Inactive TESSALON PERLES 100 MG CAP 1 to 2 tablets by mouth 3 times daily as needed for cough TESSALON PERLES 100 MG CAP 131065 BENZONATATE Inactive POTASSIUM CHLORIDE CR 10 MEQ CPCR 1 capsule by mouth daily 02/14 POTASSIUM CHLORIDE CR 10 MEQ CPCR POTASSIUM CHLORIDE Inactive NITROSTAT 0.4 MG SUBL 1 tab under tongueas needed for chest pain ( may take 3 total, 5 min apart, then call 911) NITROSTAT 0.4 MG SUBL 472618 NITROGLYCERIN Inactive LOVASTATIN 40 MG TABS 1 pill by mouth nightly for cholesterol LOVASTATIN 40 MG TABS 648891 LOVASTATIN Inactive CEFDINIR 300 MG ORAL CAPS take 1 cap po bid x 10 days CEFDINIR 300 MG ORAL CAPS 349994 CEFDINIR Inactive ACEBUTOLOL HCL 200 MG CAPS 1 cap in the morning and 2 caps in the evening ACEBUTOLOL HCL 200 MG CAPS 449565 ACEBUTOLOL HCL Inactive VENTOLIN HFA 108 (90 BASE) MCG/ACT AERS 2 -4 puffs four times a day PRN 2013 VENTOLIN HFA 108 (90 BASE) MCG/ACT AERS ALBUTEROL SULFATE Inactive LEVAQUIN 500 MG ORAL TABS Take 1 tab po daily x 8 days LEVAQUIN 500 MG ORAL TABS 744024 LEVOFLOXACIN Inactive PREDNISONE 20 MG TAB 2 tabs daily for 4 days, 1 tab daily for 4 days, 1/2 tab daily for 4 days PREDNISONE 20 MG TAB 938809 PREDNISONE Inactive LOVASTATIN 40 MG ORAL TABS Take 1 tab po every hs LOVASTATIN 40 MG ORAL TABS 470506 LOVASTATIN Inactive DILAUDID 2 MG ORAL TABS Take 1/2 tab po every 4 hours as needed for pain 2014 DILAUDID 2 MG ORAL TABS 020538 HYDROMORPHONE HCL Inactive AMITRIPTYLINE HCL 25 MG ORAL TABS 1 q hs prn AMITRIPTYLINE HCL 25 MG ORAL TABS 513014 AMITRIPTYLINE HCL Inactive MECLIZINE HCL 25 MG TAB 1 tablet three times daily for 3 days, then 1/2 tab three times daily for 3 days. MECLIZINE HCL 25 MG TAB 982590 MECLIZINE HCL Inactive AMLODIPINE BESYLATE 5 MG ORAL TABS Take 1 tab po daily AMLODIPINE BESYLATE 5 MG ORAL TABS 596436 AMLODIPINE BESYLATE Inactive TOPIRAMATE 25 MG TABS 1 tab po BID TOPIRAMATE 25 MG TABS 970727 TOPIRAMATE Inactive PREDNISONE 20 MG TAB 1 tablet twice daily for 2 days, then 1 tablet once daily for 2 days PREDNISONE 20 MG TAB 900992 PREDNISONE Inactive PREDNISONE 20 MG TAB 1 tab twice daily for 3 day, then one daily for three days PREDNISONE 20 MG TAB 825181 PREDNISONE Inactive NIFEDIPINE ER 30 MG ORAL [id number] 1 daily NIFEDIPINE ER 30 MG ORAL [id number] NIFEDIPINE Inactive AZITHROMYCIN 250 MG TABS 2 po qd x 1 day, then 1 po qd x 4 days AZITHROMYCIN 250 MG TABS 3799201 AZITHROMYCIN Inactive AZITHROMYCIN 250 MG TABS 2 po qd x 1 day, then 1 po qd x 4 days AZITHROMYCIN 250 MG TABS 6598123 AZITHROMYCIN Inactive PREDNISONE 20 MG TAB 2 po qd x 5 days PREDNISONE 20 MG TAB 397823 PREDNISONE Inactive Vital Signs Date Name Value [...] Panel - Chemistry sodium, serum 137 mmol/L 443-496 6901/01/03 potassium, serum 3.4 mmol/L 3.5-5.2 chloride, serum [...] 0.40 mg/dL 0.00-1.00 sodium, serum 142 mmol/L 776-466 2482/08/08 LDL cholesterol, serum 96 mg/dL 0-130 HDL [...] 10.0-20.0 Encounters Code Encounter Date Provider Facility CPT-86270 Level 3 Est. Patient 09:58:58 CDT Harinder Cr [facility] CPT-09981 Level 3 Est. Patient 12:37:21 CDT Harinder Cr [facility] CPT-25647 Level 3 Est. Patient 18:37:17 CDT Harinder Cr [facility] CPT-26811 Level 4 Est. Patient 11:15:54 CDT Nettie [facility] CPT-45517 Level 3 Est. Patient 16:42:24 CDT Harinder Cr [facility] CPT-16113 Level 3 Est. Patient 15:03:36 CDT Harinder Cr [facility] CPT-84038 Level 3 Est. Patient 15:03:20 CDT Harinder Cr [facility] CPT-62354 Level 3 Est. Patient 12:14:34 CDT Harinder Cr [facility] CPT-68424 Level 3 Est. Patient 13:47:15 CDT Harinder Cr [facility] CPT-49499 Level 3 Est. Patient 14:08:24 CDT Harinder Cr [facility] CPT-16605 Level 3 Est. Patient 10:07:15 CDT Harinder Cr [facility] CPT-73142 Level 3 Est. Patient 10:06:59 CDT Harinder Hernandez [facility] CPT-32009 Level 3 Est. Patient 15:53:29 CDT Jae Morgan MD [facility] CPT-60390 Level 3 Est. Patient 17:19:04 CDT Harinder Cr [facility] CPT-00734 Level 3 Est. Patient 11:13:01 CDT Harinder Hernandez [facility] CPT-64541 Level 3 Est. Patient 09:03:58 CDT Harinder Cr [facility] CPT-49870 Level 3 Est. Patient 14:46:45 TRAFFIC REPRESENTATIVE Harinder Hernandez [facility] CPT-62141 Level 3 Est. Patient 09:35:49 TRAFFIC REPRESENTATIVE Harinder Cr [facility] CPT-35135 Level 3 Est. Patient 09:29:37 TRAFFIC REPRESENTATIVE Harinder Hernandez [facility] CPT-68147 Level 3 Est. Patient 15:51:07 CDT Harinder Cr [facility] CPT-27077 Level 3 Est. Patient 18:13:13 CDT Harinder Cr [facility] CPT-71426 Level 3 Est. Patient 10:44:19 CDT Harinder Cr [facility] CPT-53285 Level 4 Est. Patient 10:07:19 TRAFFIC REPRESENTATIVE Harinder Cr [facility] CPT-83310 Level 3 Est. Patient 15:59:32 TRAFFIC REPRESENTATIVE Harinder Cr [facility] Procedures Code Procedure Name Date Entry Date Standard Description CPT-21135 BMP - LAB USE ONLY 16:45:09 TRAFFIC REPRESENTATIVE CPT-79363 Port a cath flush 12:00:13 TRAFFIC REPRESENTATIVE CPT-TCMM Transitional Care Mgmt-Moderate 11:20:16 TRAFFIC REPRESENTATIVE CPT-57014 First Vx - Ix admin for Medicare patients 17:35:15 CDT CPT-66785 Fluzone Preservative Free Intramuscular Suspension 17:35 :15 CDT CPT-70384 Microalbumin - LAB USE ONLY 11:52:05 CDT CPT-TCMM Transitional Care Mgmt-Moderate 11:33:57 CDT CPT-36185 No Charge Offi Visit 14:11:29 CDT CPT-38615 Magnesium - LAB USE ONLY 10:45:44 CDT CPT-41712 Lipid - LAB USE ONLY 10:45:44 CDT CPT-03584 CBC - LAB USE ONLY 10:45:44 CDT CPT-48686 Venipuncture Draw Fee 10:45:43 CDT CPT-03075 Venipuncture Draw Fee 18:21:27 CDT CPT-JTINJ Asp/Joint Injection 18:38:04 CDT CPT-86571 Immunization Each Additional Inj 17:38:04 CDT CPT-71247 Immunization Single Admin 17:38:04 CDT CPT-54598 Prevnar 13 17:38:04 CDT CPT-82600 Fluzone Quadrivalent preservative free (>=3yrs.) 17:38: 04 CDT CPT-82766 No Charge Offi Visit 11:14:03 CDT CPT-53273 Chest 2V Frontal and Lat 14:00:18 CDT CPT-OV Office Visit 16:10:28 CDT CPT-JTINJ Asp/Joint Injection 09:03:57 CDT CPT-Cryo Cryotherapy 09:35:49 TRAFFIC REPRESENTATIVE CPT-JTINJ Asp/Joint Injection 09:34:45 TRAFFIC REPRESENTATIVE CPT-J2930 Solu Medrol 125 mg (Methyl Prednisolone Sodium Succinate) 20:37:27 CDT CPT-90282 Abx/Therapy Injection 20:37:27 CDT CPT-57450 Port a cath flush 08:15:51 CDT CPT-46357 Port a cath flush 09:54:16 CDT CPT-43684 Port a cath flush 09:38:02 CDT CPT-52531 Port a cath flush 11:00:27 TRAFFIC REPRESENTATIVE
--- OUTSIDE RECORDS SUMMARY | 2017-12-29 04:09 | XMS REPORT | Clinical Summary ---
Author Author Admin, QIE Organization [facility] Address Unknown Phone Unavailable Allergies, Adverse Reactions, [...] DO Back pain, lumbar ICD-724.2 Inactive Harinder rC David DO Insomnia ICD-780.52 Inactive Harinder Cr [...] MG/0.3ML INJ SOAJ 1 INJ NEEDED EPINEPHRINE [id number] Active Tawnya Pardo MA Active PREDNISONE 20 MG TAB 1 tab twice daily for 3 day, then one daily for three days PREDNISONE 83920439077 No Longer Active Harinder Hernandez DO Active PREDNISONE 20 MG TAB 1 tablet twice daily for 2 days, then 1 tablet once daily for 2 days PREDNISONE 95628802628 No Longer Active Harinder Hernandez DO Active ASMANEX 120 METERED DOSES 220 MCG/INH INH AEPB 2 puffs orally twice daily MOMETASONE FUROATE 51831592260 Active Jeri Sosa RPT,RMA Active NIFEDIPINE ER 30 MG ORAL [id number] 1 daily NIFEDIPINE 06420144379 Active Kaylah Newberry Active TOPIRAMATE 25 MG TABS 1 tab po BID TOPIRAMATE 62199455891 No Longer Active Nettie Newberry APRN Active AMLODIPINE BESYLATE 5 MG ORAL TABS Take 1 tab po daily AMLODIPINE BESYLATE 77992366954 No Longer Active Nettie Newberry APRN Active MECLIZINE HCL 25 MG TAB 1 tablet three times daily for 3 days, then 1/2 tab three times daily for 3 days. MECLIZINE HCL 68908194375 No Longer Active Nettie Newberry APRN Active AMITRIPTYLINE HCL 25 MG ORAL TABS 1 q hs prn AMITRIPTYLINE HCL 62398630644 No Longer Active Nettie Newberry APRN Active DILAUDID 2 MG ORAL TABS Take 1/2 tab po every 4 hours as needed for pain 2014 HYDROMORPHONE HCL 94787357128 No Longer Active Nettie Newberry APRN Active CLOPIDOGREL BISULFATE 75 MG ORAL TABS 1 tab by mouth once daily CLOPIDOGREL BISULFATE 45540825407 Active Tawnya Pardo MA Active ATORVASTATIN CALCIUM 10 MG ORAL TABS 1 at bedtime ATORVASTATIN CALCIUM 13758087207 Active Tawnya Pardo MA Active LOVASTATIN 40 MG ORAL TABS Take 1 tab po every hs LOVASTATIN 47819258572 No Longer Active Harinder Hernandez DO Active PREDNISONE 20 MG TAB 2 tabs daily for 4 days, 1 tab daily for 4 days, 1/2 tab daily for 4 days PREDNISONE 15738899505 No Longer Active Harinder Hernandez DO Active LEVAQUIN 500 MG ORAL TABS Take 1 tab po daily x 8 days LEVOFLOXACIN 50453439172 No Longer Active Harinder Hernandez DO Active VENTOLIN HFA 108 (90 BASE) MCG/ACT AERS 2 -4 puffs four times a day PRN 2013 ALBUTEROL SULFATE 20064581399 No Longer Active Jeri Sosa RPT,RMA Active ACEBUTOLOL HCL 200 MG CAPS 1 cap in the morning and 2 caps in the evening ACEBUTOLOL HCL 11373622009 No Longer Active Harinder Hernandez DO Active CEFDINIR 300 MG ORAL CAPS take 1 cap po bid x 10 days CEFDINIR 54640330461 No Longer Active Harinder Hernandez DO Active LOVASTATIN 40 MG TABS 1 pill by mouth nightly for cholesterol LOVASTATIN 75191994567 No Longer Active Nettie Newberry APRN Active NITROSTAT 0.4 MG SUBL 1 tab under tongueas needed for chest pain ( may take 3 total, 5 min apart, then call 911) NITROGLYCERIN 90932182558 No Longer Active Nettie Newberry APRN Active POTASSIUM CHLORIDE CR 10 MEQ CPCR 1 capsule by mouth daily 02/14 POTASSIUM CHLORIDE 63955092481 No Longer Active Nettie Newberry APRN Active TESSALON PERLES 100 MG CAP 1 to 2 tablets by mouth 3 times daily as needed for cough BENZONATATE 38698083846 No Longer Active Nettie Newberry APRN Active THEOPHYLLINE ER 200 MG ORAL [id number] Take 1 tab every 12 hours THEOPHYLLINE 26266231084 Active Tawnya Pardo MA Active PREDNISONE 20 MG TAB 2 po qd x 5 days PREDNISONE 11095075855 No Longer Active Jae Morgan MD Active AZITHROMYCIN 250 MG TABS 2 po qd x 1 day, then 1 po qd x 4 days AZITHROMYCIN 82556421452 No Longer Active Jae Morgan MD Active PREDNISONE 20 MG TAB 1 tab twice daily for 3 day, then one daily for three days PREDNISONE 20823696365 No Longer Active Jae Morgan MD Active SINGULAIR 10 MG TABS 1 pill by mouth every evening for breathing. MONTELUKAST SODIUM 99484424316 Active Tanwya Pardo MA Active TYLENOL 325 MG TAB 3 by mouth q4h as needed ACETAMINOPHEN 32413161543 Active Harinder Hernandez DO Active POTASSIUM CHLORIDE ER 10 MEQ CR-TABS take 1 tab po daily POTASSIUM CHLORIDE 07114249258 No Longer Active Harinder Hernandez DO Active PREDNISONE 20 MG TAB 1 TID x 2 days, then 1 BID x 3 days, then 1 Daily x 3 days, then stop PREDNISONE 54769682022 No Longer Active John Montemayor APRN Active LEVAQUIN 500 MG TAB 1 tablet by mouth daily LEVOFLOXACIN 15516692887 No Longer Active Jillkvng Montemayor APRN Active NEURONTIN 300 MG CAP 1 cap by mouth three times daily for restless leg 06/22 GABAPENTIN 20338812791 No Longer Active Harinder Hernandez DO Active BENZONATATE 100 MG CAPS 1 cap po TID PRN BENZONATATE 33198434443 No Longer Active Harinder Hernandez DO Active MONTELUKAST SODIUM 10 MG TABS 1 tab po in the evening MONTELUKAST SODIUM 81523718452 No Longer Active Harinder Hernandez DO Active MUPIROCIN 2 % OINT apply to affected area BID x 14 days MUPIROCIN 04481739311 No Longer Active Harinder Hernandez DO Active TYLENOL EXTRA STRENGTH 500 MG TABS as needed ACETAMINOPHEN 64182796368 No Longer Active Harinder Hernandez DO Active PREDNISONE 10 MG TABS 1 tab po daily PREDNISONE 55060986164 No Longer Active Harinder Hernandez DO Active PREDNISONE 20 MG TAB 2 tabs daily for 4 days, 1 tab daily for 4 days, 1/2 tab daily for 4 days PREDNISONE 51888868435 No Longer Active Harinder Hernandez DO Active AZITHROMYCIN 250 MG TABS 2 po qd x 1 day, then 1 po qd x 4 days AZITHROMYCIN 02291880777 No Longer Active Harinder Hernandez DO Active PREDNISONE 20 MG TAB 3 tabs today, then 1 tab twice daily for 3 day, then one daily for three days PREDNISONE 44704151420 No Longer Active Harinder Hernandez DO Active NIFEDIAC CC 30 MG [id number] 1 tablet daily for raynaud's syndrome NIFEDIPINE 81377601638 No Longer Active Tawnya Pardo MA Active AMBIEN 10 MG TAB 1/2 tab by mouth at bedtime as needed for sleep ZOLPIDEM TARTRATE 93604376127 Active Harinder Hernandez DO Active CLONAZEPAM 1 MG TABS 1 tablet at bedtime for insomnia and restless legs 09/14 CLONAZEPAM 23980926465 Active Kaylah Newberry Active CLONAZEPAM 0.5 MG TABS 1 tab po daily CLONAZEPAM 82357467998 No Longer Active Harinder Hernandez DO Active PREDNISONE 10 MG TAB 1 tablet daily for COPD PREDNISONE 74307937817 Active Tawnya Pardo MA Active PROAIR HFA 108 (90 BASE) MCG/ACT AERS 2 puffs four times a day as needed 2012 ALBUTEROL SULFATE 02285970162 Active Tawnya Pardo MA Active FLOVENT HFA 110 MCG/ACT AERO 2 puffs inhaled b.i.d. FLUTICASONE PROPIONATE HFA 95833420835 Active Tawnya Pardo MA Active ACIPHEX 20 MG TBEC 1 tab po daily RABEPRAZOLE SODIUM 38639308954 Active Kaylah Newberry Active CLONAZEPAM 0.5 MG TABS 1 tab po daily CLONAZEPAM 0.5 MG TABS 394753 CLONAZEPAM Inactive PREDNISONE 20 MG TAB 3 tabs today, then 1 tab twice daily for 3 day, then one daily for three days PREDNISONE 20 MG TAB 685467 PREDNISONE Inactive PREDNISONE 20 MG TAB 2 tabs daily for 4 days, 1 tab daily for 4 days, 1/2 tab daily for 4 days PREDNISONE 20 MG TAB 322926 PREDNISONE Inactive PREDNISONE 10 MG TABS 1 tab po daily PREDNISONE 10 MG TABS 685278 PREDNISONE Inactive TYLENOL EXTRA STRENGTH 500 MG TABS as needed TYLENOL EXTRA STRENGTH 500 MG TABS 763903 ACETAMINOPHEN Inactive MUPIROCIN 2 % OINT apply to affected area BID x 14 days MUPIROCIN 2 % OINT 980381 MUPIROCIN Inactive MONTELUKAST SODIUM 10 MG TABS 1 tab po in the evening MONTELUKAST SODIUM 10 MG TABS 044174 MONTELUKAST SODIUM Inactive BENZONATATE 100 MG CAPS 1 cap po TID PRN BENZONATATE 100 MG CAPS 276152 BENZONATATE Inactive NEURONTIN 300 MG CAP 1 cap by mouth three times daily for restless leg 06/22 NEURONTIN 300 MG CAP 516678 GABAPENTIN Inactive LEVAQUIN 500 MG TAB 1 tablet by mouth daily LEVAQUIN 500 MG TAB 634034 LEVOFLOXACIN Inactive PREDNISONE 20 MG TAB 1 TID x 2 days, then 1 BID x 3 days, then 1 Daily x 3 days, then stop PREDNISONE 20 MG TAB 975478 PREDNISONE Inactive POTASSIUM CHLORIDE ER 10 MEQ CR-TABS take 1 tab po daily POTASSIUM CHLORIDE ER 10 MEQ CR-TABS POTASSIUM CHLORIDE Inactive PREDNISONE 20 MG TAB 1 tab twice daily for 3 day, then one daily for three days PREDNISONE 20 MG TAB 508133 PREDNISONE Inactive TESSALON PERLES 100 MG CAP 1 to 2 tablets by mouth 3 times daily as needed for cough TESSALON PERLES 100 MG CAP 962668 BENZONATATE Inactive POTASSIUM CHLORIDE CR 10 MEQ CPCR 1 capsule by mouth daily 02/14 POTASSIUM CHLORIDE CR 10 MEQ CPCR POTASSIUM CHLORIDE Inactive NITROSTAT 0.4 MG SUBL 1 tab under tongueas needed for chest pain ( may take 3 total, 5 min apart, then call 911) NITROSTAT 0.4 MG SUBL 813313 NITROGLYCERIN Inactive LOVASTATIN 40 MG TABS 1 pill by mouth nightly for cholesterol LOVASTATIN 40 MG TABS 450460 LOVASTATIN Inactive CEFDINIR 300 MG ORAL CAPS take 1 cap po bid x 10 days CEFDINIR 300 MG ORAL CAPS 222126 CEFDINIR Inactive ACEBUTOLOL HCL 200 MG CAPS 1 cap in the morning and 2 caps in the evening ACEBUTOLOL HCL 200 MG CAPS 523217 ACEBUTOLOL HCL Inactive VENTOLIN HFA 108 (90 BASE) MCG/ACT AERS 2 -4 puffs four times a day PRN 2013 VENTOLIN HFA 108 (90 BASE) MCG/ACT AERS ALBUTEROL SULFATE Inactive LEVAQUIN 500 MG ORAL TABS Take 1 tab po daily x 8 days LEVAQUIN 500 MG ORAL TABS 733831 LEVOFLOXACIN Inactive PREDNISONE 20 MG TAB 2 tabs daily for 4 days, 1 tab daily for 4 days, 1/2 tab daily for 4 days PREDNISONE 20 MG TAB 015867 PREDNISONE Inactive LOVASTATIN 40 MG ORAL TABS Take 1 tab po every hs LOVASTATIN 40 MG ORAL TABS 263603 LOVASTATIN Inactive DILAUDID 2 MG ORAL TABS Take 1/2 tab po every 4 hours as needed for pain 2014 DILAUDID 2 MG ORAL TABS 268245 HYDROMORPHONE HCL Inactive AMITRIPTYLINE HCL 25 MG ORAL TABS 1 q hs prn AMITRIPTYLINE HCL 25 MG ORAL TABS 291275 AMITRIPTYLINE HCL Inactive MECLIZINE HCL 25 MG TAB 1 tablet three times daily for 3 days, then 1/2 tab three times daily for 3 days. MECLIZINE HCL 25 MG TAB 788261 MECLIZINE HCL Inactive AMLODIPINE BESYLATE 5 MG ORAL TABS Take 1 tab po daily AMLODIPINE BESYLATE 5 MG ORAL TABS 031048 AMLODIPINE BESYLATE Inactive TOPIRAMATE 25 MG TABS 1 tab po BID TOPIRAMATE 25 MG TABS 744453 TOPIRAMATE Inactive PREDNISONE 20 MG TAB 1 tablet twice daily for 2 days, then 1 tablet once daily for 2 days PREDNISONE 20 MG TAB 162787 PREDNISONE Inactive PREDNISONE 20 MG TAB 1 tab twice daily for 3 day, then one daily for three days PREDNISONE 20 MG TAB 023832 PREDNISONE Inactive AZITHROMYCIN 250 MG TABS 2 po qd x 1 day, then 1 po qd x 4 days AZITHROMYCIN 250 MG TABS 8889458 AZITHROMYCIN Inactive AZITHROMYCIN 250 MG TABS 2 po qd x 1 day, then 1 po qd x 4 days AZITHROMYCIN 250 MG TABS 6088663 AZITHROMYCIN Inactive PREDNISONE 20 MG TAB 2 po qd x 5 days PREDNISONE 20 MG TAB 700460 PREDNISONE Inactive Vital Signs Date Name Value [...] Magnesium - Chemistry cholesterol, serum 180 mg/dL 846-734 7744/08/08 triglyceride, serum, fasting 92 mg/dL 30-200 HDL cholesterol, serum 66 mg/dL 32-96 LDL cholesterol, serum 96 mg/dL 0-130 sodium, serum 142 mmol/L 807-303 6343/08/08 carbon dioxide, venous blood 27.4 mmol/L 21.0-32.0 [...] 10.0-20.0 Encounters Code Encounter Date Provider Facility CPT-28730 Level 3 Est. Patient 09:58:58 CDT Harinder Cr [facility] CPT-11036 Level 3 Est. Patient 12:37:21 CDT Harinder Cr [facility] CPT-57321 Level 3 Est. Patient 18:37:17 CDT Harinder Cr [facility] CPT-94347 Level 4 Est. Patient 11:15:54 CDT Nettie Newberry [employer] [facility] CPT-78503 Level 3 Est. Patient 16:42:24 CDT Harinder Cr [facility] CPT-46255 Level 3 Est. Patient 15:03:36 CDT Harinder W [facility] CPT-34631 Level 3 Est. Patient 15:03:20 CDT Harinder Hernandez [facility] CPT-24962 Level 3 Est. Patient 12:14:34 CDT Harinder Hernandez [facility] CPT-57937 Level 3 Est. Patient 13:47:15 CDT Harinder Hernandez [facility] CPT-00505 Level 3 Est. Patient 14:08:24 CDT Harinder Hernandez [facility] CPT-13243 Level 3 Est. Patient 10:07:15 CDT Harinder Hernandez [facility] CPT-19642 Level 3 Est. Patient 10:06:59 CDT Harinder Hernandez [facility] CPT-36947 Level 3 Est. Patient 15:53:29 CDT Jae Morgan MD [facility] CPT-69042 Level 3 Est. Patient 17:19:04 CDT Harinder Hernandez [facility] CPT-28739 Level 3 Est. Patient 11:13:01 CDT Harinder Hernandez [facility] CPT-00396 Level 3 Est. Patient 09:03:58 CDT Harinder Hernandez [facility] CPT-85962 Level 3 Est. Patient 14:46:45 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 Harinder Hernandez [facility] CPT-51418 Level 3 Est. Patient 09:35:49 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 Harinder Hernandez [facility] CPT-88697 Level 3 Est. Patient 09:29:37 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 Harinder Hernandez [facility] CPT-90854 Level 3 Est. Patient 15:51:07 CDT Harinder Hernandez [facility] CPT-27782 Level 3 Est. Patient 18:13:13 CDT Harinder Cr [facility] CPT-93040 Level 3 Est. Patient 10:44:19 CDT Harinder Hernandez [facility] CPT-80913 Level 4 Est. 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 Patient 15:59:32 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 Harinder Hernandez [facility] Procedures Code Procedure Name Date Entry Date Standard Description CPT-68315 First Vx - Ix admin for Medicare patients 17:35:15 CDT CPT-62143 Fluzone Preservative Free Intramuscular Suspension 17:35 :15 CDT CPT-81774 Microalbumin - LAB USE ONLY 11:52:05 CDT CPT-TCMM Transitional Care Mgmt-Moderate 11:33:57 CDT CPT-35836 No Charge Offi Visit 14:11:29 CDT CPT-30480 Magnesium - LAB USE ONLY 10:45:44 CDT CPT-73963 Lipid - LAB USE ONLY 10:45:44 CDT CPT-31127 CBC - LAB USE ONLY 10:45:44 CDT CPT-07616 Venipuncture Draw Fee 10:45:43 CDT CPT-26322 Venipuncture Draw Fee 18:21:27 CDT CPT-JTINJ Asp/Joint Injection 18:38:04 CDT CPT-87660 Immunization Each Additional Inj 17:38:04 CDT CPT-11721 Immunization Single Admin 17:38:04 CDT CPT-78321 Prevnar 13 17:38:04 CDT CPT-70932 Fluzone Quadrivalent preservative free (>=3yrs.) 17:38: 04 CDT CPT-07222 No Charge Offi Visit 11:14:03 CDT CPT-08293 Chest 2V Frontal and Lat 14:00:18 CDT CPT-OV Office Visit 16:10:28 CDT CPT-JTINJ Asp/Joint Injection 09:03:57 CDT CPT-Cryo Cryotherapy 09:35:49 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
--- OUTSIDE RECORDS SUMMARY | 2017-12-29 04:11 | XMS REPORT | Clinical Summary ---
Author Author Admin, QIE Organization [facility] [employer] Address Unknown Phone Unavailable Allergies, Adverse Reactions, [...] CR-TABS 1 po q day POTASSIUM CHLORIDE [id number] Active Kortney Mccain Active POTASSIUM CHLORIDE 20 MEQ ORAL PACK 1 tab po q day POTASSIUM CHLORIDE 72478928321 No Longer Active Kortney Mccain Active POTASSIUM CHLORIDE CR 10 MEQ CPCR 1 capsule BID POTASSIUM CHLORIDE 53124138843 No Longer Active Kortney Mccain Active LASIX 20 MG TAB 1 tablet by mouth every morning FUROSEMIDE 98875014039 No Longer Active Kortney Mccain Active SPIRONOLACTONE 25 MG TAB 1 tablet by mouth daily SPIRONOLACTONE 66086304760 Active Kortney Mccain Active FLUOXETINE HCL 10 MG ORAL CAPS 1 po qd for depression/anxiety FLUOXETINE HCL 52566177966 Active Harinder Hernandez DO Active VOLTAREN 1 % GEL apply q 6-8 hour to left arm as needed for pain DICLOFENAC SODIUM 44553779464 Active Kortney Mccain Active ALBUTEROL SULFATE 0.083 % NEBU SOLN 1 vial neb q 4hrs for severe asthma. 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 FLUTICASONE PROPIONATE HFA 88612613551 Active Harinder Hernandez DO Active EPIPEN 2-BRUNA 0.3 MG/0.3ML INJ SOAJ 1 INJ NEEDED EPINEPHRINE 38733586296 Active Harinder Hernandez DO Active PREDNISONE 20 MG TAB 1 tab twice daily for 3 day, then one daily for three days PREDNISONE 62628975451 No Longer Active Harinder Hernandez DO Active PREDNISONE 20 MG TAB 1 tablet twice daily for 2 days, then 1 tablet once daily for 2 days PREDNISONE 42319277116 No Longer Active Harinder Hernandez DO Active ASMANEX 120 METERED DOSES 220 MCG/INH INH AEPB 2 puffs orally twice daily MOMETASONE FUROATE 71383157968 Active Jeri Sosa LPN Active TOPIRAMATE 25 MG TABS 1 tab po BID TOPIRAMATE 73257165693 No Longer Active Nettie Newberry APRN Active AMLODIPINE BESYLATE 5 MG ORAL TABS Take 1 tab po daily AMLODIPINE BESYLATE 96882337254 No Longer Active Nettie Newberry APRN Active MECLIZINE HCL 25 MG TAB 1 tablet three times daily for 3 days, then 1/2 tab three times daily for 3 days. MECLIZINE HCL 36879487208 No Longer Active Nettieog Newberry APRN Active AMITRIPTYLINE HCL 25 MG ORAL TABS 1 q hs prn AMITRIPTYLINE HCL 12659476136 No Longer Active Nettie Newberry MAHENDRA Active DILAUDID 2 MG ORAL TABS Take 1/2 tab po every 4 hours as needed for pain 2014 HYDROMORPHONE HCL 95524952835 No Longer Active Nettieog Newberry APRN Active CLOPIDOGREL BISULFATE 75 MG ORAL TABS 1 tab by mouth once daily CLOPIDOGREL BISULFATE 43644730583 Active Harinder Hernandez DO Active ATORVASTATIN CALCIUM 10 MG ORAL TABS 1 at bedtime ATORVASTATIN CALCIUM 34445641834 Active Kortney Mccain Active LOVASTATIN 40 MG ORAL TABS Take 1 tab po every hs LOVASTATIN 62911957377 No Longer Active Harinder Hernandez DO Active PREDNISONE 20 MG TAB 2 tabs daily for 4 days, 1 tab daily for 4 days, 1/2 tab daily for 4 days PREDNISONE 97012249468 No Longer Active Harinder Hernandez DO Active LEVAQUIN 500 MG ORAL TABS Take 1 tab po daily x 8 days LEVOFLOXACIN 66360782141 No Longer Active Harinder Hernandez DO Active VENTOLIN HFA 108 (90 BASE) MCG/ACT AERS 2 -4 puffs four times a day PRN 2013 ALBUTEROL SULFATE 66725864505 No Longer Active Jeri Sosa LPN Active ACEBUTOLOL HCL 200 MG CAPS 1 cap in the morning and 2 caps in the evening ACEBUTOLOL HCL 91706810181 No Longer Active Harinder Hernandez DO Active CEFDINIR 300 MG ORAL CAPS take 1 cap po bid x 10 days CEFDINIR 45586167613 No Longer Active Harinder Hernandez DO Active LOVASTATIN 40 MG TABS 1 pill by mouth nightly for cholesterol LOVASTATIN 86706271630 No Longer Active Nettie King MAHENDRA Active NITROSTAT 0.4 MG SUBL 1 tab under tongueas needed for chest pain ( may take 3 total, 5 min apart, then call 911) NITROGLYCERIN 02921571843 No Longer Active Nettie Newberry APRN Active POTASSIUM CHLORIDE CR 10 MEQ CPCR 1 capsule by mouth daily 02/14 POTASSIUM CHLORIDE 31914528720 No Longer Active Nettieog Newberry APRN Active TESSALON PERLES 100 MG CAP 1 to 2 tablets by mouth 3 times daily as needed for cough BENZONATATE 32044426348 No Longer Active Nettie Newberry APRN Active THEOPHYLLINE ER 200 MG ORAL [id number] Take 1 tab every 12 hours THEOPHYLLINE 64403129209 Active Kortney Mccain Active PREDNISONE 20 MG TAB 2 po qd x 5 days PREDNISONE 82771001084 No Longer Active Jae Morgan MD Active AZITHROMYCIN 250 MG TABS 2 po qd x 1 day, then 1 po qd x 4 days AZITHROMYCIN 23839683607 No Longer Active Jae Morgan MD Active PREDNISONE 20 MG TAB 1 tab twice daily for 3 day, then one daily for three days PREDNISONE 75382856295 No Longer Active Jae Morgan MD Active SINGULAIR 10 MG TABS 1 pill by mouth every evening for breathing. MONTELUKAST SODIUM 58632655806 Active Kortney Mccain Active TYLENOL 325 MG TAB 3 by mouth q4h as needed ACETAMINOPHEN 14793070475 Active Harinder Hernandez DO Active POTASSIUM CHLORIDE ER 10 MEQ CR-TABS take 1 tab po daily POTASSIUM CHLORIDE 22933521893 No Longer Active Harinder Hernandez DO Active PREDNISONE 20 MG TAB 1 TID x 2 days, then 1 BID x 3 days, then 1 Daily x 3 days, then stop PREDNISONE 90816169301 No Longer Active John Montemayor APRN Active LEVAQUIN 500 MG TAB 1 tablet by mouth daily LEVOFLOXACIN 43008623375 No Longer Active Jillina Frashai BRICEÑON Active NEURONTIN 300 MG CAP 1 cap by mouth three times daily for restless leg 06/22 GABAPENTIN 34179547509 No Longer Active Harinder Hernandez DO Active BENZONATATE 100 MG CAPS 1 cap po TID PRN BENZONATATE 44492271783 No Longer Active Harinder Hernandez DO Active MONTELUKAST SODIUM 10 MG TABS 1 tab po in the evening MONTELUKAST SODIUM 47856973662 No Longer Active Harinder Hernandez DO Active MUPIROCIN 2 % OINT apply to affected area BID x 14 days MUPIROCIN 83890680365 No Longer Active Harinder Hernandez DO Active TYLENOL EXTRA STRENGTH 500 MG TABS as needed ACETAMINOPHEN 61819623784 No Longer Active Harinder Hernandez DO Active PREDNISONE 10 MG TABS 1 tab po daily PREDNISONE 47294613273 No Longer Active Harinder Hernandez DO Active PREDNISONE 20 MG TAB 2 tabs daily for 4 days, 1 tab daily for 4 days, 1/2 tab daily for 4 days PREDNISONE 01846356411 No Longer Active Harinder Hernandez DO Active AZITHROMYCIN 250 MG TABS 2 po qd x 1 day, then 1 po qd x 4 days AZITHROMYCIN 77324288539 No Longer Active Harinder Hernandez DO Active PREDNISONE 20 MG TAB 3 tabs today, then 1 tab twice daily for 3 day, then one daily for three days PREDNISONE 74508733581 No Longer Active Harinder Hernandez DO Active NIFEDIAC CC 30 MG [id number] 1 tablet daily for raynaud's syndrome NIFEDIPINE 69221632439 No Longer Active Tawnya Pardo MA Active AMBIEN 10 MG TAB 1/2 tab by mouth at bedtime as needed for sleep ZOLPIDEM TARTRATE 62196397303 Active Kortney Mccain Active CLONAZEPAM 1 MG TABS 1 tablet at bedtime for insomnia and restless legs 09/14 CLONAZEPAM 41116020963 Active Harinder Hernandez DO Active CLONAZEPAM 0.5 MG TABS 1 tab po daily CLONAZEPAM 65557402717 No Longer Active Harinder Shaye David DO Active PREDNISONE 10 MG TAB 1 tablet daily for COPD PREDNISONE 13265278154 Active Harinder Hernandez DO Active PROAIR HFA 108 (90 BASE) MCG/ACT AERS 2 puffs four times a day as needed 2012 ALBUTEROL SULFATE 07745149678 Active Harinder Cr David DO Active FLOVENT HFA 110 MCG/ACT AERO 2 puffs inhaled b.i.d. FLUTICASONE PROPIONATE HFA 35757165130 Active Kortney Mccain Active ACIPHEX 20 MG TBEC 1 tab po daily RABEPRAZOLE SODIUM 48769309346 Active Kaylah Newberry Active CLONAZEPAM 0.5 MG TABS 1 tab po daily CLONAZEPAM 0.5 MG TABS 268455 CLONAZEPAM Inactive PREDNISONE 20 MG TAB 3 tabs today, then 1 tab twice daily for 3 day, then one daily for three days PREDNISONE 20 MG TAB 443899 PREDNISONE Inactive PREDNISONE 20 MG TAB 2 tabs daily for 4 days, 1 tab daily for 4 days, 1/2 tab daily for 4 days PREDNISONE 20 MG TAB 263843 PREDNISONE Inactive PREDNISONE 10 MG TABS 1 tab po daily PREDNISONE 10 MG TABS 915710 PREDNISONE Inactive TYLENOL EXTRA STRENGTH 500 MG TABS as needed TYLENOL EXTRA STRENGTH 500 MG TABS 973720 ACETAMINOPHEN Inactive MUPIROCIN 2 % OINT apply to affected area BID x 14 days MUPIROCIN 2 % OINT 544671 MUPIROCIN Inactive MONTELUKAST SODIUM 10 MG TABS 1 tab po in the evening MONTELUKAST SODIUM 10 MG TABS 20010818 MONTELUKAST SODIUM Inactive BENZONATATE 100 MG CAPS 1 cap po TID PRN BENZONATATE 100 MG CAPS 311388 BENZONATATE Inactive NEURONTIN 300 MG CAP 1 cap by mouth three times daily for restless leg 06/22 NEURONTIN 300 MG CAP 586274 GABAPENTIN Inactive LEVAQUIN 500 MG TAB 1 tablet by mouth daily LEVAQUIN 500 MG TAB 048274 LEVOFLOXACIN Inactive PREDNISONE 20 MG TAB 1 TID x 2 days, then 1 BID x 3 days, then 1 Daily x 3 days, then stop PREDNISONE 20 MG TAB 428955 PREDNISONE Inactive POTASSIUM CHLORIDE ER 10 MEQ CR-TABS take 1 tab po daily POTASSIUM CHLORIDE ER 10 MEQ CR-TABS POTASSIUM CHLORIDE Inactive PREDNISONE 20 MG TAB 1 tab twice daily for 3 day, then one daily for three days PREDNISONE 20 MG TAB 326158 PREDNISONE Inactive TESSALON PERLES 100 MG CAP 1 to 2 tablets by mouth 3 times daily as needed for cough TESSALON PERLES 100 MG CAP 420149 BENZONATATE Inactive POTASSIUM CHLORIDE CR 10 MEQ CPCR 1 capsule by mouth daily 02/14 POTASSIUM CHLORIDE CR 10 MEQ CPCR POTASSIUM CHLORIDE Inactive NITROSTAT 0.4 MG SUBL 1 tab under tongueas needed for chest pain ( may take 3 total, 5 min apart, then call 911) NITROSTAT 0.4 MG SUBL 135738 NITROGLYCERIN Inactive LOVASTATIN 40 MG TABS 1 pill by mouth nightly for cholesterol LOVASTATIN 40 MG TABS 156489 LOVASTATIN Inactive CEFDINIR 300 MG ORAL CAPS take 1 cap po bid x 10 days CEFDINIR 300 MG ORAL CAPS 596570 CEFDINIR Inactive ACEBUTOLOL HCL 200 MG CAPS 1 cap in the morning and 2 caps in the evening ACEBUTOLOL HCL 200 MG CAPS 538348 ACEBUTOLOL HCL Inactive VENTOLIN HFA 108 (90 BASE) MCG/ACT AERS 2 -4 puffs four times a day PRN 2013 VENTOLIN HFA 108 (90 BASE) MCG/ACT AERS ALBUTEROL SULFATE Inactive LEVAQUIN 500 MG ORAL TABS Take 1 tab po daily x 8 days LEVAQUIN 500 MG ORAL TABS 151678 LEVOFLOXACIN Inactive PREDNISONE 20 MG TAB 2 tabs daily for 4 days, 1 tab daily for 4 days, 1/2 tab daily for 4 days PREDNISONE 20 MG TAB 896612 PREDNISONE Inactive LOVASTATIN 40 MG ORAL TABS Take 1 tab po every hs LOVASTATIN 40 MG ORAL TABS 588737 LOVASTATIN Inactive DILAUDID 2 MG ORAL TABS Take 1/2 tab po every 4 hours as needed for pain 2014 DILAUDID 2 MG ORAL TABS 339171 HYDROMORPHONE HCL Inactive AMITRIPTYLINE HCL 25 MG ORAL TABS 1 q hs prn AMITRIPTYLINE HCL 25 MG ORAL TABS 492692 AMITRIPTYLINE HCL Inactive MECLIZINE HCL 25 MG TAB 1 tablet three times daily for 3 days, then 1/2 tab three times daily for 3 days. MECLIZINE HCL 25 MG TAB 294249 MECLIZINE HCL Inactive AMLODIPINE BESYLATE 5 MG ORAL TABS Take 1 tab po daily AMLODIPINE BESYLATE 5 MG ORAL TABS 667114 AMLODIPINE BESYLATE Inactive TOPIRAMATE 25 MG TABS 1 tab po BID TOPIRAMATE 25 MG TABS 347460 TOPIRAMATE Inactive PREDNISONE 20 MG TAB 1 tablet twice daily for 2 days, then 1 tablet once daily for 2 days PREDNISONE 20 MG TAB 688187 PREDNISONE Inactive PREDNISONE 20 MG TAB 1 tab twice daily for 3 day, then one daily for three days PREDNISONE 20 MG TAB 090466 PREDNISONE Inactive NIFEDIPINE ER 30 MG ORAL [id number] 1 daily NIFEDIPINE ER 30 MG ORAL [id number] NIFEDIPINE Inactive AMLODIPINE BESYLATE 5 MG TABS 1 tablet by mouth daily AMLODIPINE BESYLATE 5 MG TABS 661574 AMLODIPINE BESYLATE Inactive LASIX 20 MG TAB 1 tablet by mouth every morning LASIX 20 MG TAB 657192 FUROSEMIDE Inactive POTASSIUM CHLORIDE CR 10 MEQ CPCR 1 capsule BID POTASSIUM CHLORIDE CR 10 MEQ CPCR POTASSIUM CHLORIDE Inactive POTASSIUM CHLORIDE 20 MEQ ORAL PACK 1 tab po q day POTASSIUM CHLORIDE 20 MEQ ORAL PACK 9871909 POTASSIUM CHLORIDE Inactive AZITHROMYCIN 250 MG TABS 2 po qd x 1 day, then 1 po qd x 4 days AZITHROMYCIN 250 MG TABS 737208 AZITHROMYCIN Inactive AZITHROMYCIN 250 MG TABS 2 po qd x 1 day, then 1 po qd x 4 days AZITHROMYCIN 250 MG TABS 290152 AZITHROMYCIN Inactive PREDNISONE 20 MG TAB 2 po qd x 5 days PREDNISONE 20 MG TAB 063996 PREDNISONE Inactive Vital Signs Date Name Value [...] Panel - Chemistry sodium, serum 137 mmol/L 867-384 0359/01/03 potassium, serum 3.4 mmol/L 3.5-5.2 chloride, serum 102 mmol/L 98-107 carbon dioxide, venous blood 29.2 mmol/L 21.0-32.0 blood glucose 87 mg/dL 65-110 calcium, serum 8.5 mg/dL 8.5-10.1 urea nitrogen, blood 8 mg/dL 7-18 creatinine, serum 0.82 mg/dL 0.55-1.30 sodium, serum 140 mmol/L 114-898 8079/07/13 potassium, serum 3.2 mmol/L 3.5-5.2 chloride, serum 103 mmol/L 98-107 carbon dioxide, venous blood 26.9 mmol/L 21.0-32.0 blood glucose 93 mg/dL 65-110 calcium, serum 9.2 mg/dL 8.5-10.1 urea nitrogen, blood 13 mg/dL 7-18 creatinine, serum 0.84 mg/dL 0.60-1.30 sodium, serum 140 mmol/L 592-051 8107/08/21 potassium, serum 3.8 mmol/L 3.5-5.2 chloride, serum [...] ... - Chemistry sodium, serum 141 mmol/L 552-518 0553/08/07 carbon dioxide, venous blood 34.0 mmol/L 21.0-32.0 [...] 1.40 mg/dL 0.00-1.00 cholesterol, serum 192 mg/dL 732-355 4699/10/19 triglyceride, serum, fasting 71 mg/dL 30-200 HDL cholesterol, serum 72 mg/dL 32-60 LDL cholesterol, serum 106 mg/dL 0-130 Lab Report: MICROALB/CREAT W/RATIO - Chemistry albumin/creatinine ratio, urine < 30 mg/g mg/g{creat} 0-29 Lab Report: MICROALB/CREAT W/RATIO - Lab microalbumin, urine 10 0-19 Encounters Code Encounter Date Provider Facility CPT-88630 Level 4 Est. Patient 14:45:25 CDT Harinder Cr [facility] CPT-68564 Level 4 Est. Patient 09:15:13 CDT Harinder Hernandez [facility] CPT-87885 Level 3 Est. Patient 11:51:58 CDT Harinder Cr [facility] CPT-95847 Level 3 Est. Patient 11:30:05 CDT Harinder Hernandez [facility] CPT-76061 Level 4 Est. Patient 10:19:23 CDT Harinder Hernandez [facility] CPT-67906 Level 3 Est. Patient 09:58:58 CDT Harinder Hernandez [facility] CPT-11983 Level 3 Est. Patient 12:37:21 CDT Harinder Hernandez [facility] CPT-18316 Level 3 Est. Patient 18:37:17 CDT Harinder Hernandez [facility] CPT-80385 Level 4 Est. Patient 11:15:54 CDT Nettie Newberry APRN [facility] CPT-06106 Level 3 Est. Patient 16:42:24 CDT Harinder Cr [facility] CPT-34904 Level 3 Est. Patient 15:03:36 CDT Harinder Hernandez [facility] CPT-22863 Level 3 Est. Patient 15:03:20 CDT Harinder Cr [facility] CPT-27668 Level 3 Est. Patient 12:14:34 CDT Harinder Hernandez [facility] CPT-49919 Level 3 Est. Patient 13:47:15 CDT Harinder Hernandez [facility] CPT-76518 Level 3 Est. Patient 14:08:24 CDT Harinder Hernandez [facility] CPT-61043 Level 3 Est. Patient 10:07:15 CDT Harinder Hernandez [facility] CPT-84659 Level 3 Est. Patient 10:06:59 CDT Harinder Cr [facility] CPT-59259 Level 3 Est. Patient 15:53:29 CDT Jae Morgan MD [facility] CPT-50263 Level 3 Est. Patient 17:19:04 CDT Harinder Cr [facility] CPT-91080 Level 3 Est. Patient 11:13:01 CDT Harinder Hernandez [facility] CPT-26657 Level 3 Est. Patient 09:03:58 CDT Harinder Hernandez [facility] CPT-03834 Level 3 Est. Patient 14:46:45 UTILITY CLERK Harinder Hernandez [facility] CPT-28418 Level 3 Est. Patient 09:35:49 UTILITY CLERK Harinder Hernandez [facility] CPT-59972 Level 3 Est. Patient 09:29:37 UTILITY CLERK Harinder Hernandez [facility] CPT-44693 Level 3 Est. Patient 15:51:07 CDT Harinder Hernandez [facility] CPT-23437 Level 3 Est. Patient 18:13:13 CDT Harinder Hernandez [facility] CPT-54945 Level 3 Est. Patient 10:44:19 CDT Harinder Hernandez [facility] CPT-12701 Level 4 Est. Patient 10:07:19 UTILITY CLERK Harinder Hernandez [facility] CPT-27116 Level 3 Est. Patient 15:59:32 UTILITY CLERK Harinder Cr [facility] Procedures Code Procedure Name Date Entry Date Standard Description CPT-63752 Abd compl w upright - XRAY USE ONLY 14:48:09 CDT 02/18 CPT-11375 Port a cath flush 13:46:05 CDT CPT-54820 Hip, complete, 2-3 views - XRAY USE ONLY 10:28:40 CDT CPT-92591 BMP - LAB USE ONLY 16:45:09 UTILITY CLERK CPT-86390 Port a cath flush 12:00:13 UTILITY CLERK CPT-TCMM Transitional Care Mgmt-Moderate 11:20:16 UTILITY CLERK CPT-02075 First Vx - Ix admin for Medicare patients 17:35:15 CDT CPT-25042 Fluzone Preservative Free Intramuscular Suspension 17:35 :15 CDT CPT-86943 Microalbumin - LAB USE ONLY 11:52:05 CDT CPT-TCMM Transitional Care Mgmt-Moderate 11:33:57 CDT CPT-12806 No Charge Offi Visit 14:11:29 CDT CPT-63848 Magnesium - LAB USE ONLY 10:45:44 CDT CPT-34373 Lipid - LAB USE ONLY 10:45:44 CDT CPT-22856 CBC - LAB USE ONLY 10:45:44 CDT CPT-28074 Venipuncture Draw Fee 10:45:43 CDT CPT-36814 Venipuncture Draw Fee 18:21:27 CDT CPT-JTINJ Asp/Joint Injection 18:38:04 CDT CPT-17412 Immunization Each Additional Inj 17:38:04 CDT CPT-41933 Immunization Single Admin 17:38:04 CDT CPT-26051 Prevnar 13 17:38:04 CDT CPT-64779 Fluzone Quadrivalent preservative free (>=3yrs.) 17:38: 04 CDT CPT-15948 No Charge Offi Visit 11:14:03 CDT CPT-85011 Chest 2V Frontal and Lat 14:00:18 CDT CPT-OV Office Visit 16:10:28 CDT CPT-JTINJ Asp/Joint Injection 09:03:57 CDT CPT-Cryo Cryotherapy 09:35:49 UTILITY CLERK CPT-JTINJ Asp/Joint Injection 09:34:45 UTILITY CLERK CPT-J2930 Solu Medrol 125 mg (Methyl Prednisolone Sodium Succinate) 20:37:27 CDT CPT-67195 Abx/Therapy Injection 20:37:27 CDT CPT-89656 Port a cath flush 08:15:51 CDT CPT-25925 Port a cath flush 09:54:16 CDT CPT-70557 Port a cath flush 09:38:02 CDT CPT-70017 Port a cath flush 11:00:27 UTILITY CLERK
--- OUTSIDE RECORDS SUMMARY | 2017-12-29 04:12 | XMS REPORT | Clinical Summary ---
Author Author Admin, QIE Organization [facility] [address] Address Unknown Phone Unavailable Allergies, Adverse Reactions, [...] 4hrs PRN Wheezing Dx: J44.1 ALBUTEROL SULFATE 66335103976 Active Kaylah Newberry Active AMLODIPINE BESYLATE 5 MG TABS 1 tablet by mouth daily AMLODIPINE BESYLATE 72605878453 Active Harinder Hernandez DO Active NIFEDIPINE ER 30 MG ORAL [id number] 1 daily NIFEDIPINE 63039864466 No Longer Active Harinder Hernandez DO Active POTASSIUM CHLORIDE 20 MEQ ORAL PACK Take 1 tablet by mouth daily POTASSIUM CHLORIDE 17300512762 Active Ciera Pimentel Active FLOVENT HFA 110 MCG/ACT AERO 2 puffs inhaled b.i.d. FLUTICASONE PROPIONATE HFA 77647018108 Active Harinder Hernandez DO Active POTASSIUM CHLORIDE CR 10 MEQ CPCR 1 capsule by mouth daily POTASSIUM CHLORIDE 92607984002 Active Harinder Hernandez DO Active EPIPEN 2-BRUNA 0.3 MG/0.3ML INJ SOAJ 1 INJ NEEDED EPINEPHRINE 71947418583 Active Harinder Hernandez DO Active PREDNISONE 20 MG TAB 1 tab twice daily for 3 day, then one daily for three days PREDNISONE 63486214279 No Longer Active Harinder Hernandez DO Active PREDNISONE 20 MG TAB 1 tablet twice daily for 2 days, then 1 tablet once daily for 2 days PREDNISONE 23743258593 No Longer Active Harinder Hernandez DO Active ASMANEX 120 METERED DOSES 220 MCG/INH INH AEPB 2 puffs orally twice daily MOMETASONE FUROATE 25611449543 Active Jeri Sosa RPT,RMA Active TOPIRAMATE 25 MG TABS 1 tab po BID TOPIRAMATE 02768343519 No Longer Active Nettie Newberry APRN Active AMLODIPINE BESYLATE 5 MG ORAL TABS Take 1 tab po daily AMLODIPINE BESYLATE 42505650183 No Longer Active Nettie Rohith MAHENDRA Active MECLIZINE HCL 25 MG TAB 1 tablet three times daily for 3 days, then 1/2 tab three times daily for 3 days. MECLIZINE HCL 25447663286 No Longer Active Nettie Newberry APRN Active AMITRIPTYLINE HCL 25 MG ORAL TABS 1 q hs prn AMITRIPTYLINE HCL 87169307840 No Longer Active Nettie Rohith MAHENDRA Active DILAUDID 2 MG ORAL TABS Take 1/2 tab po every 4 hours as needed for pain 2014 HYDROMORPHONE HCL 44839168535 No Longer Active Nettie Newberry APRN Active CLOPIDOGREL BISULFATE 75 MG ORAL TABS 1 tab by mouth once daily CLOPIDOGREL BISULFATE 83117687300 Active Tawnya Pardo MA Active ATORVASTATIN CALCIUM 10 MG ORAL TABS 1 at bedtime ATORVASTATIN CALCIUM 29090222834 Active Tawnya Pardo MA Active LOVASTATIN 40 MG ORAL TABS Take 1 tab po every hs LOVASTATIN 14169869588 No Longer Active Harinder Hernandez DO Active PREDNISONE 20 MG TAB 2 tabs daily for 4 days, 1 tab daily for 4 days, 1/2 tab daily for 4 days PREDNISONE 15498534263 No Longer Active Harinder Hernandez DO Active LEVAQUIN 500 MG ORAL TABS Take 1 tab po daily x 8 days LEVOFLOXACIN 36428182469 No Longer Active Harinder Hernandez DO Active VENTOLIN HFA 108 (90 BASE) MCG/ACT AERS 2 -4 puffs four times a day PRN 2013 ALBUTEROL SULFATE 23165190293 No Longer Active Jeri Sosa RPT,RMA Active ACEBUTOLOL HCL 200 MG CAPS 1 cap in the morning and 2 caps in the evening ACEBUTOLOL HCL 50108937987 No Longer Active Harinder Hernandez DO Active CEFDINIR 300 MG ORAL CAPS take 1 cap po bid x 10 days CEFDINIR 45313265360 No Longer Active Harinder Hernandez DO Active LOVASTATIN 40 MG TABS 1 pill by mouth nightly for cholesterol LOVASTATIN 07454738339 No Longer Active Nettie Newberry APRN Active NITROSTAT 0.4 MG SUBL 1 tab under tongueas needed for chest pain ( may take 3 total, 5 min apart, then call 911) NITROGLYCERIN 65503272325 No Longer Active Nettie Newberry APRN Active POTASSIUM CHLORIDE CR 10 MEQ CPCR 1 capsule by mouth daily 02/14 POTASSIUM CHLORIDE 57472141547 No Longer Active Nettie Newberry APRN Active TESSALON PERLES 100 MG CAP 1 to 2 tablets by mouth 3 times daily as needed for cough BENZONATATE 02378452222 No Longer Active Nettie Newberry APRN Active THEOPHYLLINE ER 200 MG ORAL [id number] Take 1 tab every 12 hours THEOPHYLLINE 59200943214 Active Tawnya Pardo MA Active PREDNISONE 20 MG TAB 2 po qd x 5 days PREDNISONE 72173827408 No Longer Active Jae Morgan MD Active AZITHROMYCIN 250 MG TABS 2 po qd x 1 day, then 1 po qd x 4 days AZITHROMYCIN 45147483179 No Longer Active Jae Morgan MD Active PREDNISONE 20 MG TAB 1 tab twice daily for 3 day, then one daily for three days PREDNISONE 03555446547 No Longer Active Jae Morgan MD Active SINGULAIR 10 MG TABS 1 pill by mouth every evening for breathing. MONTELUKAST SODIUM 52115403923 Active Tawnya Pardo MA Active TYLENOL 325 MG TAB 3 by mouth q4h as needed ACETAMINOPHEN 87842111997 Active Harinder Hernandez DO Active POTASSIUM CHLORIDE ER 10 MEQ CR-TABS take 1 tab po daily POTASSIUM CHLORIDE 91619709483 No Longer Active Harinder Hernandez DO Active PREDNISONE 20 MG TAB 1 TID x 2 days, then 1 BID x 3 days, then 1 Daily x 3 days, then stop PREDNISONE 30441646616 No Longer Active Jillina Frazell TINT LAYER Active LEVAQUIN 500 MG TAB 1 tablet by mouth daily LEVOFLOXACIN 00612443592 No Longer Active Jillina Frazell TINT LAYER Active NEURONTIN 300 MG CAP 1 cap by mouth three times daily for restless leg 06/22 GABAPENTIN 59187141267 No Longer Active Harinder Hernandez DO Active BENZONATATE 100 MG CAPS 1 cap po TID PRN BENZONATATE 67363751900 No Longer Active Harinder Hernandez DO Active MONTELUKAST SODIUM 10 MG TABS 1 tab po in the evening MONTELUKAST SODIUM 40062461285 No Longer Active Harinder Hernandez DO Active MUPIROCIN 2 % OINT apply to affected area BID x 14 days MUPIROCIN 94693562214 No Longer Active Harinder Hernandez DO Active TYLENOL EXTRA STRENGTH 500 MG TABS as needed ACETAMINOPHEN 34337375853 No Longer Active Harinder Hernandez DO Active PREDNISONE 10 MG TABS 1 tab po daily PREDNISONE 22494140526 No Longer Active Harinder Hernandez DO Active PREDNISONE 20 MG TAB 2 tabs daily for 4 days, 1 tab daily for 4 days, 1/2 tab daily for 4 days PREDNISONE 41989871126 No Longer Active Harinder Hernandez DO Active AZITHROMYCIN 250 MG TABS 2 po qd x 1 day, then 1 po qd x 4 days AZITHROMYCIN 53950343373 No Longer Active Harinder Hernandez DO Active PREDNISONE 20 MG TAB 3 tabs today, then 1 tab twice daily for 3 day, then one daily for three days PREDNISONE 19543169379 No Longer Active Harinder Hernandez DO Active NIFEDIAC CC 30 MG [id number] 1 tablet daily for raynaud's syndrome NIFEDIPINE 27267535125 No Longer Active Tawnya Pardo MA Active AMBIEN 10 MG TAB 1/2 tab by mouth at bedtime as needed for sleep ZOLPIDEM TARTRATE 45845581231 Active Harinder Hernandez DO Active CLONAZEPAM 1 MG TABS 1 tablet at bedtime for insomnia and restless legs 09/14 CLONAZEPAM 09614017733 Active Harinder Hernandez DO Active CLONAZEPAM 0.5 MG TABS 1 tab po daily CLONAZEPAM 38575561000 No Longer Active Harinder Hernandez DO Active PREDNISONE 10 MG TAB 1 tablet daily for COPD PREDNISONE 31963601201 Active Tawnya Pardo MA Active PROAIR HFA 108 (90 BASE) MCG/ACT AERS 2 puffs four times a day as needed 2012 ALBUTEROL SULFATE 16508296220 Active Tawnya Pardo MA Active FLOVENT HFA 110 MCG/ACT AERO 2 puffs inhaled b.i.d. FLUTICASONE PROPIONATE HFA 95611483666 Active Tawnya Pardo MA Active ACIPHEX 20 MG TBEC 1 tab po daily RABEPRAZOLE SODIUM 14142491999 Active Kaylah Newberry Active CLONAZEPAM 0.5 MG TABS 1 tab po daily CLONAZEPAM 0.5 MG TABS 707722 CLONAZEPAM Inactive PREDNISONE 20 MG TAB 3 tabs today, then 1 tab twice daily for 3 day, then one daily for three days PREDNISONE 20 MG TAB 135547 PREDNISONE Inactive PREDNISONE 20 MG TAB 2 tabs daily for 4 days, 1 tab daily for 4 days, 1/2 tab daily for 4 days PREDNISONE 20 MG TAB 423642 PREDNISONE Inactive PREDNISONE 10 MG TABS 1 tab po daily PREDNISONE 10 MG TABS 830291 PREDNISONE Inactive TYLENOL EXTRA STRENGTH 500 MG TABS as needed TYLENOL EXTRA STRENGTH 500 MG TABS 460357 ACETAMINOPHEN Inactive MUPIROCIN 2 % OINT apply to affected area BID x 14 days MUPIROCIN 2 % OINT 502275 MUPIROCIN Inactive MONTELUKAST SODIUM 10 MG TABS 1 tab po in the evening MONTELUKAST SODIUM 10 MG TABS 20010818 MONTELUKAST SODIUM Inactive BENZONATATE 100 MG CAPS 1 cap po TID PRN BENZONATATE 100 MG CAPS 19730321 BENZONATATE Inactive NEURONTIN 300 MG CAP 1 cap by mouth three times daily for restless leg 06/22 NEURONTIN 300 MG CAP 759721 GABAPENTIN Inactive LEVAQUIN 500 MG TAB 1 tablet by mouth daily LEVAQUIN 500 MG TAB 537252 LEVOFLOXACIN Inactive PREDNISONE 20 MG TAB 1 TID x 2 days, then 1 BID x 3 days, then 1 Daily x 3 days, then stop PREDNISONE 20 MG TAB 710764 PREDNISONE Inactive POTASSIUM CHLORIDE ER 10 MEQ CR-TABS take 1 tab po daily POTASSIUM CHLORIDE ER 10 MEQ CR-TABS POTASSIUM CHLORIDE Inactive PREDNISONE 20 MG TAB 1 tab twice daily for 3 day, then one daily for three days PREDNISONE 20 MG TAB 272859 PREDNISONE Inactive TESSALON PERLES 100 MG CAP 1 to 2 tablets by mouth 3 times daily as needed for cough TESSALON PERLES 100 MG CAP 351921 BENZONATATE Inactive POTASSIUM CHLORIDE CR 10 MEQ CPCR 1 capsule by mouth daily 02/14 POTASSIUM CHLORIDE CR 10 MEQ CPCR POTASSIUM CHLORIDE Inactive NITROSTAT 0.4 MG SUBL 1 tab under tongueas needed for chest pain ( may take 3 total, 5 min apart, then call 911) NITROSTAT 0.4 MG SUBL 167428 NITROGLYCERIN Inactive LOVASTATIN 40 MG TABS 1 pill by mouth nightly for cholesterol LOVASTATIN 40 MG TABS 193606 LOVASTATIN Inactive CEFDINIR 300 MG ORAL CAPS take 1 cap po bid x 10 days CEFDINIR 300 MG ORAL CAPS 20021018 CEFDINIR Inactive ACEBUTOLOL HCL 200 MG CAPS 1 cap in the morning and 2 caps in the evening ACEBUTOLOL HCL 200 MG CAPS 104377 ACEBUTOLOL HCL Inactive VENTOLIN HFA 108 (90 BASE) MCG/ACT AERS 2 -4 puffs four times a day PRN 2013 VENTOLIN HFA 108 (90 BASE) MCG/ACT AERS ALBUTEROL SULFATE Inactive LEVAQUIN 500 MG ORAL TABS Take 1 tab po daily x 8 days LEVAQUIN 500 MG ORAL TABS 191412 LEVOFLOXACIN Inactive PREDNISONE 20 MG TAB 2 tabs daily for 4 days, 1 tab daily for 4 days, 1/2 tab daily for 4 days PREDNISONE 20 MG TAB 691285 PREDNISONE Inactive LOVASTATIN 40 MG ORAL TABS Take 1 tab po every hs LOVASTATIN 40 MG ORAL TABS 017571 LOVASTATIN Inactive DILAUDID 2 MG ORAL TABS Take 1/2 tab po every 4 hours as needed for pain 2014 DILAUDID 2 MG ORAL TABS 632689 HYDROMORPHONE HCL Inactive AMITRIPTYLINE HCL 25 MG ORAL TABS 1 q hs prn AMITRIPTYLINE HCL 25 MG ORAL TABS 777287 AMITRIPTYLINE HCL Inactive MECLIZINE HCL 25 MG TAB 1 tablet three times daily for 3 days, then 1/2 tab three times daily for 3 days. MECLIZINE HCL 25 MG TAB 428366 MECLIZINE HCL Inactive AMLODIPINE BESYLATE 5 MG ORAL TABS Take 1 tab po daily AMLODIPINE BESYLATE 5 MG ORAL TABS 604654 AMLODIPINE BESYLATE Inactive TOPIRAMATE 25 MG TABS 1 tab po BID TOPIRAMATE 25 MG TABS 545816 TOPIRAMATE Inactive PREDNISONE 20 MG TAB 1 tablet twice daily for 2 days, then 1 tablet once daily for 2 days PREDNISONE 20 MG TAB 233209 PREDNISONE Inactive PREDNISONE 20 MG TAB 1 tab twice daily for 3 day, then one daily for three days PREDNISONE 20 MG TAB 495248 PREDNISONE Inactive NIFEDIPINE ER 30 MG ORAL [id number] 1 daily NIFEDIPINE ER 30 MG ORAL [id number] NIFEDIPINE Inactive AZITHROMYCIN 250 MG TABS 2 po qd x 1 day, then 1 po qd x 4 days AZITHROMYCIN 250 MG TABS 4056159 AZITHROMYCIN Inactive AZITHROMYCIN 250 MG TABS 2 po qd x 1 day, then 1 po qd x 4 days AZITHROMYCIN 250 MG TABS 5123778 AZITHROMYCIN Inactive PREDNISONE 20 MG TAB 2 po qd x 5 days PREDNISONE 20 MG TAB 164649 PREDNISONE Inactive Vital Signs Date Name Value [...] Panel - Chemistry sodium, serum 137 mmol/L 787-002 0734/01/03 potassium, serum 3.4 mmol/L 3.5-5.2 chloride, serum [...] Magnesium - Chemistry cholesterol, serum 180 mg/dL 247-179 8700/08/08 triglyceride, serum, fasting 92 mg/dL 30-200 HDL cholesterol, serum 66 mg/dL 32-96 LDL cholesterol, serum 96 mg/dL 0-130 sodium, serum 142 mmol/L 186-957 3944/08/08 carbon dioxide, venous blood 27.4 mmol/L 21.0-32.0 [...] 10.0-20.0 Encounters Code Encounter Date Provider Facility CPT-90193 Level 3 Est. Patient 09:58:58 CDT Harinder Hernandez [facility] CPT-68707 Level 3 Est. Patient 12:37:21 CDT Harinder Hernandez [facility] CPT-16293 Level 3 Est. Patient 18:37:17 CDT Harinder Hernandez [facility] CPT-61253 Level 4 Est. Patient 11:15:54 CDT Nettie Newberry [facility] CPT-40362 Level 3 Est. Patient 16:42:24 CDT Harinder Cr [facility] CPT-21037 Level 3 Est. Patient 15:03:36 CDT Harinder Hernandez [facility] CPT-73107 Level 3 Est. Patient 15:03:20 CDT Harinder Hernandez [facility] CPT-56042 Level 3 Est. Patient 12:14:34 CDT Harinder Hernandez [facility] CPT-82671 Level 3 Est. Patient 13:47:15 CDT Harinder Hernandez [facility] CPT-40051 Level 3 Est. Patient 14:08:24 CDT Harinder Hernandez [facility] CPT-89639 Level 3 Est. Patient 10:07:15 CDT Harinder Hernandez [facility] CPT-47783 Level 3 Est. Patient 10:06:59 CDT Harinder Hernandez [facility] CPT-37008 Level 3 Est. Patient 15:53:29 CDT Jae Morgan MD [facility] CPT-42012 Level 3 Est. Patient 17:19:04 CDT Harinder Hernandez [facility] CPT-58879 Level 3 Est. Patient 11:13:01 CDT Harinder Hernandez [facility] CPT-93172 Level 3 Est. Patient 09:03:58 CDT Harinder Hernandez [facility] CPT-60752 Level 3 Est. Patient 14:46:45 REGISTERED ASSOCIATE Harinder Hernandez [facility] CPT-31437 Level 3 Est. Patient 09:35:49 REGISTERED ASSOCIATE Harinder Hernandez [facility] CPT-49092 Level 3 Est. Patient 09:29:37 REGISTERED ASSOCIATE Harinder Hernandez [facility] CPT-77521 Level 3 Est. Patient 15:51:07 CDT Harinder Hernandez [facility] CPT-21802 Level 3 Est. Patient 18:13:13 CDT Harinder Shaye Hernandez [facility] CPT-52048 Level 3 Est. Patient 10:44:19 CDT Harinder Hernandez [facility] CPT-25291 Level 4 Est. Patient 10:07:19 REGISTERED ASSOCIATE Harinder Hernandez [facility] CPT-97775 Level 3 Est. Patient 15:59:32 REGISTERED ASSOCIATE Harinder Hernandez [facility] Procedures Code Procedure Name Date Entry Date Standard Description CPT-07875 BMP - LAB USE ONLY 16:45:09 REGISTERED ASSOCIATE CPT-80613 Port a cath flush 12:00:13 REGISTERED ASSOCIATE CPT-TCMM Transitional Care Mgmt-Moderate 11:20:16 REGISTERED ASSOCIATE CPT-08917 First Vx - Ix admin for Medicare patients 17:35:15 CDT CPT-36458 Fluzone Preservative Free Intramuscular Suspension 17:35 :15 CDT CPT-30940 Microalbumin - LAB USE ONLY 11:52:05 CDT CPT-TCMM Transitional Care Mgmt-Moderate 11:33:57 CDT CPT-96802 No Charge Offi Visit 14:11:29 CDT CPT-68189 Magnesium - LAB USE ONLY 10:45:44 CDT CPT-37196 Lipid - LAB USE ONLY 10:45:44 CDT CPT-69420 CBC - LAB USE ONLY 10:45:44 CDT CPT-56460 Venipuncture Draw Fee 10:45:43 CDT CPT-93490 Venipuncture Draw Fee 18:21:27 CDT CPT-JTINJ Asp/Joint Injection 18:38:04 CDT CPT-04367 Immunization Each Additional Inj 17:38:04 CDT CPT-53867 Immunization Single Admin 17:38:04 CDT CPT-43711 Prevnar 13 17:38:04 CDT CPT-04698 Fluzone Quadrivalent preservative free (>=3yrs.) 17:38: 04 CDT CPT-87066 No Charge Offi Visit 11:14:03 CDT CPT-50030 Chest 2V Frontal and Lat 14:00:18 CDT CPT-OV Office Visit 16:10:28 CDT CPT-JTINJ Asp/Joint Injection 09:03:57 CDT CPT-Cryo Cryotherapy 09:35:49 REGISTERED ASSOCIATE CPT-JTINJ Asp/Joint Injection 09:34:45 REGISTERED ASSOCIATE CPT-J2930 Solu Medrol 125 mg (Methyl Prednisolone Sodium Succinate) 20:37:27 CDT CPT-54452 Abx/Therapy Injection 20:37:27 CDT CPT-72248 Port a cath flush 08:15:51 CDT CPT-72924 Port a cath flush 09:54:16 CDT CPT-70182 Port a cath flush 09:38:02 CDT CPT-03417 Port a cath flush 11:00:27 REGISTERED ASSOCIATE
--- OUTSIDE RECORDS SUMMARY | 2017-12-29 04:14 | XMS REPORT | Clinical Summary ---
Author Author Admin, QIE Organization [facility] Address Unknown Phone Unavailable Allergies, [...] neoplasms of colon Pneumonia 486 Resolved Harinder Shaye Hernandez DO Pneumonia , organism unspecified Bacteremia 790.7 Resolved Harinder Shaye David DO Unspecified bacteremia Clostridium difficile colitis 008.45 Resolved Harinder Shaye David DO Intestinal infection due to clostridium difficile Abdominal pain, right lower quadrant 789.03 Resolved Harinder Shaye David DO Abdominal pain, right [...] Hernandez DO Diarrhea URI 465.9 Active Harinder rC [...] then one daily for three days PREDNISONE 53528498592 No Longer Active Harinder Hernandez DO Active PREDNISONE 20 MG TAB 1 tablet twice daily for 2 days, then 1 tablet once daily for 2 days PREDNISONE 32475327405 No Longer Active Harinder Hernandez DO Active ASMANEX 120 METERED DOSES 220 MCG/INH INH AEPB 2 puffs orally twice daily MOMETASONE FUROATE 87556877587 Active Jeri Sosa RPT,RMA Active NIFEDIPINE ER 30 MG ORAL [id number] 1 daily NIFEDIPINE 25167726816 Active Tawnya Pardo MA Active TOPIRAMATE 25 MG TABS 1 tab po BID TOPIRAMATE 27146152475 No Longer Active Nettie Newberry APRN Active AMLODIPINE BESYLATE 5 MG ORAL TABS Take 1 tab po daily AMLODIPINE BESYLATE 77054952028 No Longer Active Nettie Newberry APRN Active MECLIZINE HCL 25 MG TAB 1 tablet three times daily for 3 days, then 1/2 tab three times daily for 3 days. MECLIZINE HCL 40091948789 No Longer Active Nettie Newberry APRN Active AMITRIPTYLINE HCL 25 MG ORAL TABS 1 q hs prn AMITRIPTYLINE HCL 93001478839 No Longer Active Nettie Newberry APRN Active DILAUDID 2 MG ORAL TABS Take 1/2 tab po every 4 hours as needed for pain 2014 HYDROMORPHONE HCL 10119063148 No Longer Active Nettie Newberry APRN Active CLOPIDOGREL BISULFATE 75 MG ORAL TABS 1 tab by mouth once daily CLOPIDOGREL BISULFATE 71913808990 Active Jeri Sosa RPT,RMA Active ATORVASTATIN CALCIUM 10 MG ORAL TABS 1 at bedtime ATORVASTATIN CALCIUM 83761115411 Active Jeri Sosa RPT,RMA Active LOVASTATIN 40 MG ORAL TABS Take 1 tab po every hs LOVASTATIN 17265940370 No Longer Active Harinder Hernandez DO Active PREDNISONE 20 MG TAB 2 tabs daily for 4 days, 1 tab daily for 4 days, 1/2 tab daily for 4 days PREDNISONE 72523456578 No Longer Active Harinder Hernandez DO Active LEVAQUIN 500 MG ORAL TABS Take 1 tab po daily x 8 days LEVOFLOXACIN 97965273230 No Longer Active Harinder Hernandez DO Active VENTOLIN HFA 108 (90 BASE) MCG/ACT AERS 2 -4 puffs four times a day PRN 2013 ALBUTEROL SULFATE 00569856992 No Longer Active Jeri Sosa RPT,RMA Active ACEBUTOLOL HCL 200 MG CAPS 1 cap in the morning and 2 caps in the evening ACEBUTOLOL HCL 59932109929 No Longer Active Harinder Hernandez DO Active CEFDINIR 300 MG ORAL CAPS take 1 cap po bid x 10 days CEFDINIR 88840121258 No Longer Active Harinder Hernandez DO Active LOVASTATIN 40 MG TABS 1 pill by mouth nightly for cholesterol LOVASTATIN 11749933041 No Longer Active Nettie Newberry APRN Active NITROSTAT 0.4 MG SUBL 1 tab under tongueas needed for chest pain ( may take 3 total, 5 min apart, then call 911) NITROGLYCERIN 95916584944 No Longer Active Nettie Newberry APRN Active POTASSIUM CHLORIDE CR 10 MEQ CPCR 1 capsule by mouth daily 02/14 POTASSIUM CHLORIDE 91819800030 No Longer Active Nettie Newberry APRN Active TESSALON PERLES 100 MG CAP 1 to 2 tablets by mouth 3 times daily as needed for cough BENZONATATE 43565757866 No Longer Active Nettie Newberry APRN Active THEOPHYLLINE ER 200 MG ORAL [id number] Take 1 tab every 12 hours THEOPHYLLINE 39386873919 Active Jeri Sosa RPT,RMA Active PREDNISONE 20 MG TAB 2 po qd x 5 days PREDNISONE 52874711462 No Longer Active Jae Morgan MD Active AZITHROMYCIN 250 MG TABS 2 po qd x 1 day, then 1 po qd x 4 days AZITHROMYCIN 92513814562 No Longer Active Jae Morgan MD Active PREDNISONE 20 MG TAB 1 tab twice daily for 3 day, then one daily for three days PREDNISONE 57767737357 No Longer Active Jae Morgan MD Active SINGULAIR 10 MG TABS 1 pill by mouth every evening for breathing. MONTELUKAST SODIUM 09816369933 Active Tawnya Pardo MA Active TYLENOL 325 MG TAB 3 by mouth q4h as needed ACETAMINOPHEN 66938207467 Active Harinder Hernandez DO Active POTASSIUM CHLORIDE ER 10 MEQ CR-TABS take 1 tab po daily POTASSIUM CHLORIDE 33499443061 No Longer Active Harinder Hernandez DO Active PREDNISONE 20 MG TAB 1 TID x 2 days, then 1 BID x 3 days, then 1 Daily x 3 days, then stop PREDNISONE 35202081349 No Longer Active Jillina Frazell 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 LEVAQUIN 500 MG TAB 1 tablet by mouth daily LEVOFLOXACIN 90667424438 No Longer Active Jillina Frazell H[employer]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 NEURONTIN 300 MG CAP 1 cap by mouth three times daily for restless leg 06/22 GABAPENTIN 82504760044 No Longer Active Harinder Hernandez DO Active BENZONATATE 100 MG CAPS 1 cap po TID PRN BENZONATATE 93942456869 No Longer Active Harinder Hernandez DO Active MONTELUKAST SODIUM 10 MG TABS 1 tab po in the evening MONTELUKAST SODIUM 22545310181 No Longer Active Harinder Hernandez DO Active MUPIROCIN 2 % OINT apply to affected area BID x 14 days MUPIROCIN 96015456929 No Longer Active Harinder Hernandez DO Active TYLENOL EXTRA STRENGTH 500 MG TABS as needed ACETAMINOPHEN 46863076926 No Longer Active Harinder W David DO Active PREDNISONE 10 MG TABS 1 tab po daily PREDNISONE 82496001127 No Longer Active Harinder Hernandez DO Active PREDNISONE 20 MG TAB 2 tabs daily for 4 days, 1 tab daily for 4 days, 1/2 tab daily for 4 days PREDNISONE 99496379082 No Longer Active Harinder Hernandez DO Active AZITHROMYCIN 250 MG TABS 2 po qd x 1 day, then 1 po qd x 4 days AZITHROMYCIN 58645994812 No Longer Active Harinder Hernandez DO Active PREDNISONE 20 MG TAB 3 tabs today, then 1 tab twice daily for 3 day, then one daily for three days PREDNISONE 73645374187 No Longer Active Harinder Hernandez DO Active NIFEDIAC CC 30 MG [id number] 1 tablet daily for raynaud's syndrome NIFEDIPINE 65585955019 No Longer Active Tawnya Pardo MA Active AMBIEN 10 MG TAB 1/2 tab by mouth at bedtime as needed for sleep ZOLPIDEM TARTRATE 33064314108 Active Harinder Hernandez DO Active CLONAZEPAM 1 MG TABS 1 tablet at bedtime for insomnia and restless legs 09/14 CLONAZEPAM 14189496821 Active Jeri Sosa RPT,RMA Active CLONAZEPAM 0.5 MG TABS 1 tab po daily CLONAZEPAM 07649401682 No Longer Active Harinder Hernandez DO Active PREDNISONE 10 MG TAB 1 tablet daily for COPD PREDNISONE 24364200479 Active Tawnya Pardo MA Active PROAIR HFA 108 (90 BASE) MCG/ACT AERS 2 puffs four times a day as needed 2012 ALBUTEROL SULFATE 91350506426 Active Tawnya Pardo MA Active FLOVENT HFA 110 MCG/ACT AERO 2 puffs inhaled b.i.d. FLUTICASONE PROPIONATE HFA 08770716965 Active Tawnya Pardo MA Active EPIPEN 0.3 MG/0.3ML URIEL DIRECTED EPINEPHRINE Active Jeri Sosa RPT,RMA Active ACIPHEX 20 MG TBEC 1 tab po daily RABEPRAZOLE SODIUM 64406239162 Active Tawnya Pardo MA Active CLONAZEPAM 0.5 MG TABS 1 tab po daily CLONAZEPAM 0.5 MG TABS 962131 CLONAZEPAM Inactive PREDNISONE 20 MG TAB 3 tabs today, then 1 tab twice daily for 3 day, then one daily for three days PREDNISONE 20 MG TAB 381195 PREDNISONE Inactive PREDNISONE 20 MG TAB 2 tabs daily for 4 days, 1 tab daily for 4 days, 1/2 tab daily for 4 days PREDNISONE 20 MG TAB 184973 PREDNISONE Inactive PREDNISONE 10 MG TABS 1 tab po daily PREDNISONE 10 MG TABS 661419 PREDNISONE Inactive TYLENOL EXTRA STRENGTH 500 MG TABS as needed TYLENOL EXTRA STRENGTH 500 MG TABS 219758 ACETAMINOPHEN Inactive MUPIROCIN 2 % OINT apply to affected area BID x 14 days MUPIROCIN 2 % OINT 785667 MUPIROCIN Inactive MONTELUKAST SODIUM 10 MG TABS 1 tab po in the evening MONTELUKAST SODIUM 10 MG TABS 219179 MONTELUKAST SODIUM Inactive BENZONATATE 100 MG CAPS 1 cap po TID PRN BENZONATATE 100 MG CAPS 852887 BENZONATATE Inactive NEURONTIN 300 MG CAP 1 cap by mouth three times daily for restless leg 06/22 NEURONTIN 300 MG CAP 165739 GABAPENTIN Inactive LEVAQUIN 500 MG TAB 1 tablet by mouth daily LEVAQUIN 500 MG TAB 129761 LEVOFLOXACIN Inactive PREDNISONE 20 MG TAB 1 TID x 2 days, then 1 BID x 3 days, then 1 Daily x 3 days, then stop PREDNISONE 20 MG TAB 762964 PREDNISONE Inactive POTASSIUM CHLORIDE ER 10 MEQ CR-TABS take 1 tab po daily POTASSIUM CHLORIDE ER 10 MEQ CR-TABS POTASSIUM CHLORIDE Inactive PREDNISONE 20 MG TAB 1 tab twice daily for 3 day, then one daily for three days PREDNISONE 20 MG TAB 126767 PREDNISONE Inactive TESSALON PERLES 100 MG CAP 1 to 2 tablets by mouth 3 times daily as needed for cough TESSALON PERLES 100 MG CAP 187141 BENZONATATE Inactive POTASSIUM CHLORIDE CR 10 MEQ [...] nightly for cholesterol LOVASTATIN 40 MG TABS 616238 LOVASTATIN Inactive CEFDINIR 300 MG ORAL CAPS take 1 cap po bid x 10 days CEFDINIR 300 MG ORAL CAPS 350291 CEFDINIR Inactive ACEBUTOLOL HCL 200 MG CAPS 1 cap in the morning and 2 caps in the evening ACEBUTOLOL HCL 200 MG CAPS 372249 ACEBUTOLOL HCL Inactive VENTOLIN HFA 108 (90 BASE) MCG/ACT AERS 2 -4 puffs four times a day PRN 2013 VENTOLIN HFA 108 (90 BASE) MCG/ACT AERS ALBUTEROL SULFATE Inactive LEVAQUIN 500 MG ORAL TABS Take 1 tab po daily x 8 days LEVAQUIN 500 MG ORAL TABS 709667 LEVOFLOXACIN Inactive PREDNISONE 20 MG TAB 2 tabs daily for 4 days, 1 tab daily for 4 days, 1/2 tab daily for 4 days PREDNISONE 20 MG TAB 238251 PREDNISONE Inactive LOVASTATIN 40 MG ORAL TABS Take 1 tab po every hs LOVASTATIN 40 MG ORAL TABS 014501 LOVASTATIN Inactive DILAUDID 2 MG ORAL TABS Take 1/2 tab po every 4 hours as needed for pain 2014 DILAUDID 2 MG ORAL TABS 644951 HYDROMORPHONE HCL Inactive AMITRIPTYLINE HCL 25 MG ORAL TABS 1 q hs prn AMITRIPTYLINE HCL 25 MG ORAL TABS 116157 AMITRIPTYLINE HCL Inactive MECLIZINE HCL 25 MG TAB 1 tablet three times daily for 3 days, then 1/2 tab three times daily for 3 days. MECLIZINE HCL 25 MG TAB 841686 MECLIZINE HCL Inactive AMLODIPINE BESYLATE 5 MG ORAL TABS Take 1 tab po daily AMLODIPINE BESYLATE 5 MG ORAL TABS 664914 AMLODIPINE BESYLATE Inactive TOPIRAMATE 25 MG TABS 1 tab po BID TOPIRAMATE 25 MG TABS 539206 TOPIRAMATE Inactive PREDNISONE 20 MG TAB 1 tablet twice daily for 2 days, then 1 tablet once daily for 2 days PREDNISONE 20 MG TAB 852219 PREDNISONE Inactive PREDNISONE 20 MG TAB 1 tab twice daily for 3 day, then one daily for three days PREDNISONE 20 MG TAB 713430 PREDNISONE Inactive AZITHROMYCIN 250 MG TABS 2 po qd x 1 day, then 1 po qd x 4 days AZITHROMYCIN 250 MG TABS 6296980 AZITHROMYCIN Inactive AZITHROMYCIN 250 MG TABS 2 po qd x 1 day, then 1 po qd x 4 days AZITHROMYCIN 250 MG TABS 2963791 AZITHROMYCIN Inactive PREDNISONE 20 MG TAB 2 po qd x 5 days PREDNISONE 20 MG TAB 536098 PREDNISONE Inactive Vital Signs Date Name Value [...] pressure, diastolic - 8462-4 70 mm[Hg] BP daan blood pressure, systolic - 8480-6 116 mm[Hg] [...] Panel - Chemistry sodium, serum 138 mmol/L 877-212 8098/09/24 potassium, serum 3.5 mmol/L 3.5-5.2 chloride, serum [...] Magnesium - Chemistry cholesterol, serum 180 mg/dL 245-478 8457/08/08 triglyceride, serum, fasting 92 mg/dL 30-200 HDL cholesterol, serum 66 mg/dL 32-96 LDL cholesterol, serum 96 mg/dL 0-130 sodium, serum 142 mmol/L 929-367 7632/08/08 carbon dioxide, venous blood 27.4 mmol/L 21.0-32.0 [...] 10.0-20.0 Encounters Code Encounter Date Provider Facility CPT-70608 Level 3 Est. Patient 09:58:58 CDT Harinder Cr [facility] [place] CPT-33432 Level 3 Est. Patient 12:37:21 CDT Harinder Cr [facility] [place] CPT-63369 Level 3 Est. Patient 18:37:17 CDT Harinder Cr [facility] [place] CPT-36532 Level 4 Est. Patient 11:15:54 CDT Nettie Newberry APRN [facility] CPT-68993 Level 3 Est. Patient 16:42:24 CDT Harinder Cr [facility] [place] CPT-41116 Level 3 Est. Patient 15:03:36 CDT Harinder Cr [facility] [place] CPT-02985 Level 3 Est. Patient 15:03:20 CDT Harinder Cr [facility] [place] CPT-36666 Level 3 Est. Patient 12:14:34 CDT Harinder Hernandez [facility] CPT-91512 Level 3 Est. Patient 13:47:15 CDT Harinder Cr [facility] CPT-27321 Level 3 Est. Patient 14:08:24 CDT Harinder Hernandez [facility] CPT-40867 Level 3 Est. Patient 10:07:15 CDT Harinder Cr [facility] CPT-84756 Level 3 Est. Patient 10:06:59 CDT Harinder Hernandez [facility] CPT-22182 Level 3 Est. Patient 15:53:29 CDT Jae Morgan MD [facility] CPT-55489 Level 3 Est. Patient 17:19:04 CDT Harinder Hernandez [facility] CPT-96419 Level 3 Est. Patient 11:13:01 CDT Harinder Hernandez [facility] CPT-69599 Level 3 Est. Patient 09:03:58 CDT Harinder Cr [facility] [place] CPT-20186 Level 3 Est. Patient 14:46:45 CREW CHIEF Harinder Hernandez [facility] CPT-26770 Level 3 Est. Patient 09:35:49 CREW CHIEF Harinder Cr [facility] [place] CPT-36736 Level 3 Est. Patient 09:29:37 CREW CHIEF Harinder Hernandez [facility] CPT-81612 Level 3 Est. Patient 15:51:07 CDT Harinder Cr [facility] CPT-91033 Level 3 Est. Patient 18:13:13 CDT Harinder Cr [facility] CPT-64881 Level 3 Est. Patient 10:44:19 CDT Harinder Cr [facility] CPT-35085 Level 4 Est. Patient 10:07:19 CREW CHIEF Harinder Cr [facility] [place] CPT-51226 Level 3 Est. Patient 15:59:32 CREW CHIEF Harinder Cr [facility] Procedures Code Procedure Name Date Entry Date Standard Description CPT-TCMM Transitional Care Mgmt-Moderate 11:33:57 CDT CPT-98480 No Charge Offi Visit 14:11:29 CDT CPT-12571 Magnesium - LAB USE ONLY 10:45:44 CDT CPT-81823 Lipid - LAB USE ONLY 10:45:44 CDT CPT-44526 CBC - LAB USE ONLY 10:45:44 CDT CPT-11230 Venipuncture Draw Fee 10:45:43 CDT CPT-00525 Venipuncture Draw Fee 18:21:27 CDT CPT-JTINJ Asp/Joint Injection 18:38:04 CDT CPT-53869 Immunization Each Additional Inj 17:38:04 CDT CPT-49355 Immunization Single Admin 17:38:04 CDT CPT-11495 Prevnar 13 17:38:04 CDT CPT-14911 Fluzone Quadrivalent preservative free (>=3yrs.) 17:38: 04 CDT CPT-90776 No Charge Offi Visit 11:14:03 CDT CPT-03240 Chest 2V Frontal and Lat 14:00:18 CDT CPT-OV Office Visit 16:10:28 CDT CPT-JTINJ Asp/Joint Injection 09:03:57 CDT CPT-Cryo Cryotherapy 09:35:49 CREW CHIEF CPT-JTINJ Asp/Joint Injection 09:34:45 CREW CHIEF CPT-J2930 Solu Medrol 125 mg (Methyl Prednisolone Sodium Succinate) 20:37:27 CDT CPT-05031 Abx/Therapy Injection 20:37:27 CDT CPT-07380 Port a cath flush 08:15:51 CDT CPT-88751 Port a cath flush 09:54:16 CDT CPT-63388 Port a cath flush 09:38:02 CDT CPT-39975 Port a cath flush 11:00:27 CREW CHIEF
--- OUTSIDE RECORDS SUMMARY | 2017-12-29 04:15 | XMS REPORT | Clinical Summary ---
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 NIFEDIPINE 40581208898 Active Harinder Hernandez DO Active AMLODIPINE BESYLATE 5 MG TABS 1 tablet by mouth daily AMLODIPINE BESYLATE 29368597856 No Longer Active Harinder Hernandez DO Active TOPAMAX 25 MG ORAL TABS 1 tab po BID TOPIRAMATE 20642648202 Active Kortney Mccain Active FLUTICASONE PROPIONATE 50 MCG/ACT SUSP 2 sprays per nostril daily PRN Allergies FLUTICASONE PROPIONATE 95573916803 Active Kortney Mccain Active NIFEDIPINE ER 30 MG ORAL [id number] 1 daily NIFEDIPINE 09593256906 No Longer Active Harinder Hernandez DO Active POTASSIUM CHLORIDE 20 MEQ ORAL PACK Take 1 tablet by mouth daily POTASSIUM CHLORIDE 23318155098 Prince Pimentel Active FLOVENT HFA 110 MCG/ACT AERO 2 puffs inhaled b.i.d. FLUTICASONE PROPIONATE HFA 96654908857 Active Harinder Hernandez DO Active POTASSIUM CHLORIDE CR 10 MEQ CPCR 1 capsule by mouth daily POTASSIUM CHLORIDE 91205708991 Active Harinder W David DO Active EPIPEN 2-BRUNA 0.3 MG/0.3ML INJ SOAJ 1 INJ NEEDED EPINEPHRINE 24063353208 Active Harinder Hernandez DO Active PREDNISONE 20 MG TAB 1 tab twice daily for 3 day, then one daily for three days PREDNISONE 94927889474 No Longer Active Harinder Hernandez DO Active PREDNISONE 20 MG TAB 1 tablet twice daily for 2 days, then 1 tablet once daily for 2 days PREDNISONE 59529874423 No Longer Active Harinder Hernandez DO Active ASMANEX 120 METERED DOSES 220 MCG/INH INH AEPB 2 puffs orally twice daily MOMETASONE FUROATE 70279317226 Active Jeri Sosa RPT,RMA Active TOPIRAMATE 25 MG TABS 1 tab po BID TOPIRAMATE 30509519491 No Longer Active Nettie Newberry APRN Active AMLODIPINE BESYLATE 5 MG ORAL TABS Take 1 tab po daily AMLODIPINE BESYLATE 76046619422 No Longer Active Nettie Newberry APRN Active MECLIZINE HCL 25 MG TAB 1 tablet three times daily for 3 days, then 1/2 tab three times daily for 3 days. MECLIZINE HCL 02345571857 No Longer Active Nettie Newberry APRN Active AMITRIPTYLINE HCL 25 MG ORAL TABS 1 q hs prn AMITRIPTYLINE HCL 49989723216 No Longer Active Nettie Newberry APRN Active DILAUDID 2 MG ORAL TABS Take 1/2 tab po every 4 hours as needed for pain 2014 HYDROMORPHONE HCL 66220336937 No Longer Active Nettie Newberry APRN Active CLOPIDOGREL BISULFATE 75 MG ORAL TABS 1 tab by mouth once daily CLOPIDOGREL BISULFATE 55967917670 Active Harinder Hernandez DO Active ATORVASTATIN CALCIUM 10 MG ORAL TABS 1 at bedtime ATORVASTATIN CALCIUM 60137934196 Active Tawnya Pardo MA Active LOVASTATIN 40 MG ORAL TABS Take 1 tab po every hs LOVASTATIN 49114298729 No Longer Active Harinder Hernandez DO Active PREDNISONE 20 MG TAB 2 tabs daily for 4 days, 1 tab daily for 4 days, 1/2 tab daily for 4 days PREDNISONE 68418267441 No Longer Active Harinder Hernandez DO Active LEVAQUIN 500 MG ORAL TABS Take 1 tab po daily x 8 days LEVOFLOXACIN 58026105242 No Longer Active Harinder Hernandez DO Active VENTOLIN HFA 108 (90 BASE) MCG/ACT AERS 2 -4 puffs four times a day PRN 2013 ALBUTEROL SULFATE 47423039773 No Longer Active Jeri Sosa RPT,RMA Active ACEBUTOLOL HCL 200 MG CAPS 1 cap in the morning and 2 caps in the evening ACEBUTOLOL HCL 26206821274 No Longer Active Harinder Hernandez DO Active CEFDINIR 300 MG ORAL CAPS take 1 cap po bid x 10 days CEFDINIR 01931565455 No Longer Active Harinder Hernandez DO Active LOVASTATIN 40 MG TABS 1 pill by mouth nightly for cholesterol LOVASTATIN 18033927052 No Longer Active Nettie Newberry APRN Active NITROSTAT 0.4 MG SUBL 1 tab under tongueas needed for chest pain ( may take 3 total, 5 min apart, then call 911) NITROGLYCERIN 13801852585 No Longer Active Nettie Newberry APRN Active POTASSIUM CHLORIDE CR 10 MEQ CPCR 1 capsule by mouth daily 02/14 POTASSIUM CHLORIDE 31511530754 No Longer Active Nettie Newberry APRN Active TESSALON PERLES 100 MG CAP 1 to 2 tablets by mouth 3 times daily as needed for cough BENZONATATE 57468749130 No Longer Active Nettie Newberry APRN Active THEOPHYLLINE ER 200 MG ORAL [id number] Take 1 tab every 12 hours THEOPHYLLINE 65485084618 Active Tawnya Pardo MA Active PREDNISONE 20 MG TAB 2 po qd x 5 days PREDNISONE 06734355135 No Longer Active Jae Morgan MD Active AZITHROMYCIN 250 MG TABS 2 po qd x 1 day, then 1 po qd x 4 days AZITHROMYCIN 45286709707 No Longer Active Jae Morgan MD Active PREDNISONE 20 MG TAB 1 tab twice daily for 3 day, then one daily for three days PREDNISONE 12538770232 No Longer Active Jae Morgan MD Active SINGULAIR 10 MG TABS 1 pill by mouth every evening for breathing. MONTELUKAST SODIUM 36083820043 Active Tawnya Pardo MA Active TYLENOL 325 MG TAB 3 by mouth q4h as needed ACETAMINOPHEN 31077433248 Active Harinder Hernandez DO Active POTASSIUM CHLORIDE ER 10 MEQ CR-TABS take 1 tab po daily POTASSIUM CHLORIDE 91701838307 No Longer Active Harinder Hernandez DO Active PREDNISONE 20 MG TAB 1 TID x 2 days, then 1 BID x 3 days, then 1 Daily x 3 days, then stop PREDNISONE 53840089154 No Longer Active Jillina Frazell MAIL OPENER Active LEVAQUIN 500 MG TAB 1 tablet by mouth daily LEVOFLOXACIN 80208870754 No Longer Active Jillina Frazell MAIL OPENER Active NEURONTIN 300 MG CAP 1 cap by mouth three times daily for restless leg 06/22 GABAPENTIN 16700170769 No Longer Active Harinder Hernandez DO Active BENZONATATE 100 MG CAPS 1 cap po TID PRN BENZONATATE 40276994211 No Longer Active Harinder Hernandez DO Active MONTELUKAST SODIUM 10 MG TABS 1 tab po in the evening MONTELUKAST SODIUM 91499729561 No Longer Active Harinder Hernandez DO Active MUPIROCIN 2 % OINT apply to affected area BID x 14 days MUPIROCIN 07650754207 No Longer Active Harinder Hernandez DO Active TYLENOL EXTRA STRENGTH 500 MG TABS as needed ACETAMINOPHEN 41190424307 No Longer Active Harinder Hernandez DO Active PREDNISONE 10 MG TABS 1 tab po daily PREDNISONE 14535121433 No Longer Active Harinder Hernandez DO Active PREDNISONE 20 MG TAB 2 tabs daily for 4 days, 1 tab daily for 4 days, 1/2 tab daily for 4 days PREDNISONE 30804397289 No Longer Active Harinder Hernandez DO Active AZITHROMYCIN 250 MG TABS 2 po qd x 1 day, then 1 po qd x 4 days AZITHROMYCIN 91371152870 No Longer Active Harinder Hernandez DO Active PREDNISONE 20 MG TAB 3 tabs today, then 1 tab twice daily for 3 day, then one daily for three days PREDNISONE 37674105105 No Longer Active Harinder Hernandez DO Active NIFEDIAC CC 30 MG [id number] 1 tablet daily for raynaud's syndrome NIFEDIPINE 14737888007 No Longer Active Tawnya Pardo MA Active AMBIEN 10 MG TAB 1/2 tab by mouth at bedtime as needed for sleep ZOLPIDEM TARTRATE 11640087706 Active Ciera Pimentel Active CLONAZEPAM 1 MG TABS 1 tablet at bedtime for insomnia and restless legs 09/14 CLONAZEPAM 32734467352 Active Harinder Hernandez DO Active CLONAZEPAM 0.5 MG TABS 1 tab po daily CLONAZEPAM 05770224941 No Longer Active Harinder Hernandez DO Active PREDNISONE 10 MG TAB 1 tablet daily for COPD PREDNISONE 41004595821 Active Ciera Pimentel Active PROAIR HFA 108 (90 BASE) MCG/ACT AERS 2 puffs four times a day as needed 2012 ALBUTEROL SULFATE 89784995048 Active Harinder Hernandez DO Active FLOVENT HFA 110 MCG/ACT AERO 2 puffs inhaled b.i.d. FLUTICASONE PROPIONATE HFA 70047896635 Active Kortney Mccain Active ACIPHEX 20 MG TBEC 1 tab po daily RABEPRAZOLE SODIUM 86318596466 Active Kaylah Newberry Active CLONAZEPAM 0.5 MG TABS 1 tab po daily CLONAZEPAM 0.5 MG TABS 300891 CLONAZEPAM Inactive PREDNISONE 20 MG TAB 3 tabs today, then 1 tab twice daily for 3 day, then one daily for three days PREDNISONE 20 MG TAB 625702 PREDNISONE Inactive PREDNISONE 20 MG TAB 2 tabs daily for 4 days, 1 tab daily for 4 days, 1/2 tab daily for 4 days PREDNISONE 20 MG TAB 784277 PREDNISONE Inactive PREDNISONE 10 MG TABS 1 tab po daily PREDNISONE 10 MG TABS 459091 PREDNISONE Inactive TYLENOL EXTRA STRENGTH 500 MG TABS as needed TYLENOL EXTRA STRENGTH 500 MG TABS 684556 ACETAMINOPHEN Inactive MUPIROCIN 2 % OINT apply to affected area BID x 14 days MUPIROCIN 2 % OINT 605056 MUPIROCIN Inactive MONTELUKAST SODIUM 10 MG TABS 1 tab po in the evening MONTELUKAST SODIUM 10 MG TABS 057916 MONTELUKAST SODIUM Inactive BENZONATATE 100 MG CAPS 1 cap po TID PRN BENZONATATE 100 MG CAPS 382125 BENZONATATE Inactive NEURONTIN 300 MG CAP 1 cap by mouth three times daily for restless leg 06/22 NEURONTIN 300 MG CAP 758206 GABAPENTIN Inactive LEVAQUIN 500 MG TAB 1 tablet by mouth daily LEVAQUIN 500 MG TAB 781608 LEVOFLOXACIN Inactive PREDNISONE 20 MG TAB 1 TID x 2 days, then 1 BID x 3 days, then 1 Daily x 3 days, then stop PREDNISONE 20 MG TAB 609576 PREDNISONE Inactive POTASSIUM CHLORIDE ER 10 MEQ CR-TABS take 1 tab po daily POTASSIUM CHLORIDE ER 10 MEQ CR-TABS POTASSIUM CHLORIDE Inactive PREDNISONE 20 MG TAB 1 tab twice daily for 3 day, then one daily for three days PREDNISONE 20 MG TAB 242398 PREDNISONE Inactive TESSALON PERLES 100 MG CAP 1 to 2 tablets by mouth 3 times daily as needed for cough TESSALON PERLES 100 MG CAP 769244 BENZONATATE Inactive POTASSIUM CHLORIDE CR 10 MEQ CPCR 1 capsule by mouth daily 02/14 POTASSIUM CHLORIDE CR 10 MEQ CPCR POTASSIUM CHLORIDE Inactive NITROSTAT 0.4 MG SUBL 1 tab under tongueas needed for chest pain ( may take 3 total, 5 min apart, then call 911) NITROSTAT 0.4 MG SUBL 245436 NITROGLYCERIN Inactive LOVASTATIN 40 MG TABS 1 pill by mouth nightly for cholesterol LOVASTATIN 40 MG TABS 948834 LOVASTATIN Inactive CEFDINIR 300 MG ORAL CAPS take 1 cap po bid x 10 days CEFDINIR 300 MG ORAL CAPS 035371 CEFDINIR Inactive ACEBUTOLOL HCL 200 MG CAPS 1 cap in the morning and 2 caps in the evening ACEBUTOLOL HCL 200 MG CAPS 316716 ACEBUTOLOL HCL Inactive VENTOLIN HFA 108 (90 BASE) MCG/ACT AERS 2 -4 puffs four times a day PRN 2013 VENTOLIN HFA 108 (90 BASE) MCG/ACT AERS ALBUTEROL SULFATE Inactive LEVAQUIN 500 MG ORAL TABS Take 1 tab po daily x 8 days LEVAQUIN 500 MG ORAL TABS 120004 LEVOFLOXACIN Inactive PREDNISONE 20 MG TAB 2 tabs daily for 4 days, 1 tab daily for 4 days, 1/2 tab daily for 4 days PREDNISONE 20 MG TAB 072132 PREDNISONE Inactive LOVASTATIN 40 MG ORAL TABS Take 1 tab po every hs LOVASTATIN 40 MG ORAL TABS 652629 LOVASTATIN Inactive DILAUDID 2 MG ORAL TABS Take 1/2 tab po every 4 hours as needed for pain 2014 DILAUDID 2 MG ORAL TABS 152722 HYDROMORPHONE HCL Inactive AMITRIPTYLINE HCL 25 MG ORAL TABS 1 q hs prn AMITRIPTYLINE HCL 25 MG ORAL TABS 214521 AMITRIPTYLINE HCL Inactive MECLIZINE HCL 25 MG TAB 1 tablet three times daily for 3 days, then 1/2 tab three times daily for 3 days. MECLIZINE HCL 25 MG TAB 977537 MECLIZINE HCL Inactive AMLODIPINE BESYLATE 5 MG ORAL TABS Take 1 tab po daily AMLODIPINE BESYLATE 5 MG ORAL TABS 587513 AMLODIPINE BESYLATE Inactive TOPIRAMATE 25 MG TABS 1 tab po BID TOPIRAMATE 25 MG TABS 578459 TOPIRAMATE Inactive PREDNISONE 20 MG TAB 1 tablet twice daily for 2 days, then 1 tablet once daily for 2 days PREDNISONE 20 MG TAB 052060 PREDNISONE Inactive PREDNISONE 20 MG TAB 1 tab twice daily for 3 day, then one daily for three days PREDNISONE 20 MG TAB 330065 PREDNISONE Inactive NIFEDIPINE ER 30 MG ORAL [id number] 1 daily NIFEDIPINE ER 30 MG ORAL [id number] NIFEDIPINE Inactive AMLODIPINE BESYLATE 5 MG TABS 1 tablet by mouth daily AMLODIPINE BESYLATE 5 MG TABS 783711 AMLODIPINE BESYLATE Inactive AZITHROMYCIN 250 MG TABS 2 po qd x 1 day, then 1 po qd x 4 days AZITHROMYCIN 250 MG TABS 7067014 AZITHROMYCIN Inactive AZITHROMYCIN 250 MG TABS 2 po qd x 1 day, then 1 po qd x 4 days AZITHROMYCIN 250 MG TABS 0886341 AZITHROMYCIN Inactive PREDNISONE 20 MG TAB 2 po qd x 5 days PREDNISONE 20 MG TAB 794642 PREDNISONE Inactive Vital Signs Date Name Value [...] Panel - Chemistry sodium, serum 137 mmol/L 487-309 4762/01/03 potassium, serum 3.4 mmol/L 3.5-5.2 chloride, serum [...] 0.40 mg/dL 0.00-1.00 sodium, serum 142 mmol/L 243-237 3304/08/08 LDL cholesterol, serum 96 mg/dL 0-130 HDL [...] 10.0-20.0 Encounters Code Encounter Date Provider Facility CPT-35033 Level 3 Est. Patient 11:30:05 CDT Harinder Hernandez [facility] CPT-39207 Level 4 Est. Patient 10:19:23 CDT Harinder Hernandez [facility] CPT-96434 Level 3 Est. Patient 09:58:58 CDT Harinder Cr [facility] CPT-56913 Level 3 Est. Patient 12:37:21 CDT Harinder Cr [facility] CPT-92282 Level 3 Est. Patient 18:37:17 CDT Harinder Cr [facility] CPT-58018 Level 4 Est. Patient 11:15:54 CDT Nettie Newberry APRN [facility] CPT-89333 Level 3 Est. Patient 16:42:24 CDT Harinder Cr [facility] CPT-62462 Level 3 Est. Patient 15:03:36 CDT Harinder Hernandez [facility] CPT-28600 Level 3 Est. Patient 15:03:20 CDT Harinder Hernandez [facility] CPT-74361 Level 3 Est. Patient 12:14:34 CDT Harinder Hernandez [facility] CPT-56829 Level 3 Est. Patient 13:47:15 CDT Harinder Cr David [facility] CPT-68684 Level 3 Est. Patient 14:08:24 CDT Harinder Hernandez [facility] CPT-53164 Level 3 Est. Patient 10:07:15 CDT Harinder Hernandez [facility] CPT-19085 Level 3 Est. Patient 10:06:59 CDT Harinder Cr David [facility] CPT-02191 Level 3 Est. Patient 15:53:29 CDT Jae Morgan MD [facility] CPT-31732 Level 3 Est. Patient 17:19:04 CDT Harinder Hernandez [facility] CPT-75617 Level 3 Est. Patient 11:13:01 CDT Harinder Hernandez [facility] CPT-56578 Level 3 Est. Patient 09:03:58 CDT Harinder Hernandez [facility] CPT-08767 Level 3 Est. Patient 14:46:45 MEDICAL PATHOLOGY TEACHER Harinder Cr [facility] CPT-23757 Level 3 Est. Patient 09:35:49 MEDICAL PATHOLOGY TEACHER Harinder Cr [facility] CPT-43743 Level 3 Est. Patient 09:29:37 MEDICAL PATHOLOGY TEACHER Harinder Hernandez [facility] CPT-00390 Level 3 Est. Patient 15:51:07 CDT Harinder Hernandez [facility] CPT-32624 Level 3 Est. Patient 18:13:13 CDT Harinder Cr [facility] CPT-64416 Level 3 Est. Patient 10:44:19 CDT Harinder Cr [facility] CPT-83563 Level 4 Est. Patient 10:07:19 MEDICAL PATHOLOGY TEACHER Harinder Cr [facility] CPT-27249 Level 3 Est. Patient 15:59:32 MEDICAL PATHOLOGY TEACHER Harinder Cr [facility] Procedures Code Procedure Name Date Entry Date Standard Description CPT-31913 Hip, complete, 2-3 views - XRAY USE ONLY 10:28:40 CDT CPT-79235 BMP - LAB USE ONLY 16:45:09 MEDICAL PATHOLOGY TEACHER CPT-42320 Port a cath flush 12:00:13 MEDICAL PATHOLOGY TEACHER CPT-TCMM Transitional Care Mgmt-Moderate 11:20:16 MEDICAL PATHOLOGY TEACHER CPT-70730 First Vx - Ix admin for Medicare patients 17:35:15 CDT CPT-52762 Fluzone Preservative Free Intramuscular Suspension 17:35 :15 CDT CPT-58404 Microalbumin - LAB USE ONLY 11:52:05 CDT CPT-TCMM Transitional Care Mgmt-Moderate 11:33:57 CDT CPT-16659 No Charge Offi Visit 14:11:29 CDT CPT-21190 Magnesium - LAB USE ONLY 10:45:44 CDT CPT-26983 Lipid - LAB USE ONLY 10:45:44 CDT CPT-92287 CBC - LAB USE ONLY 10:45:44 CDT CPT-47563 Venipuncture Draw Fee 10:45:43 CDT CPT-96478 Venipuncture Draw Fee 18:21:27 CDT CPT-JTINJ Asp/Joint Injection 18:38:04 CDT CPT-21467 Immunization Each Additional Inj 17:38:04 CDT CPT-92363 Immunization Single Admin 17:38:04 CDT CPT-16350 Prevnar 13 17:38:04 CDT CPT-93862 Fluzone Quadrivalent preservative free (>=3yrs.) 17:38: 04 CDT CPT-13680 No Charge Offi Visit 11:14:03 CDT CPT-68264 Chest 2V Frontal and Lat 14:00:18 CDT CPT-OV Office Visit 16:10:28 CDT CPT-JTINJ Asp/Joint Injection 09:03:57 CDT CPT-Cryo Cryotherapy 09:35:49 MEDICAL PATHOLOGY TEACHER CPT-JTINJ Asp/Joint Injection 09:34:45 MEDICAL PATHOLOGY TEACHER CPT-J2930 Solu Medrol 125 mg (Methyl Prednisolone Sodium Succinate) 20:37:27 CDT CPT-15236 Abx/Therapy Injection 20:37:27 CDT CPT-55415 Port a cath flush 08:15:51 CDT CPT-04404 Port a cath flush 09:54:16 CDT CPT-10177 Port a cath flush 09:38:02 CDT [facility]-30660 Port a cath flush 11:00:27 MEDICAL PATHOLOGY TEACHER
--- OUTSIDE RECORDS SUMMARY | 2017-12-29 04:17 | XMS REPORT | Clinical Summary ---
Author Author Admin, QIE Organization [facility] Address Unknown Phone Unavailable Allergies, Adverse Reactions, [...] for malignant neoplasm, colon V76.51 Resolved Harinder Henrandez DO Screening for malignant neoplasms of colon [...] MG/0.3ML INJ SOAJ 1 INJ NEEDED EPINEPHRINE 13126987155 Active Tawnya Pardo MA Active PREDNISONE 20 MG TAB 1 tab twice daily for 3 day, then one daily for three days PREDNISONE 37768756474 No Longer Active Harinder Hernandez DO Active PREDNISONE 20 MG TAB 1 tablet twice daily for 2 days, then 1 tablet once daily for 2 days PREDNISONE 05245569694 No Longer Active Harinder Hernandez DO Active ASMANEX 120 METERED DOSES 220 MCG/INH INH AEPB 2 puffs orally twice daily MOMETASONE FUROATE 37017241830 Active Jeri Sosa RPT,RMA Active NIFEDIPINE ER 30 MG ORAL [id number] 1 daily NIFEDIPINE 22176627350 Active Tawnya Pardo MA Active TOPIRAMATE 25 MG TABS 1 tab po BID TOPIRAMATE 90127281523 No Longer Active Nettie Newberry APRN Active AMLODIPINE BESYLATE 5 MG ORAL TABS Take 1 tab po daily AMLODIPINE BESYLATE 80784627598 No Longer Active Nettie Newberry APRN Active MECLIZINE HCL 25 MG TAB 1 tablet three times daily for 3 days, then 1/2 tab three times daily for 3 days. MECLIZINE HCL 95190463680 No Longer Active Nettie Newberry APRN Active AMITRIPTYLINE HCL 25 MG ORAL TABS 1 q hs prn AMITRIPTYLINE HCL 85967373477 No Longer Active Nettie Newberry APRN Active DILAUDID 2 MG ORAL TABS Take 1/2 tab po every 4 hours as needed for pain 2014 HYDROMORPHONE HCL 01756938773 No Longer Active Nettie Newberry APRN Active CLOPIDOGREL BISULFATE 75 MG ORAL TABS 1 tab by mouth once daily CLOPIDOGREL BISULFATE 14724095596 Active Tawnya Pardo MA Active ATORVASTATIN CALCIUM 10 MG ORAL TABS 1 at bedtime ATORVASTATIN CALCIUM 09068557417 Active Tawnya Pardo MA Active LOVASTATIN 40 MG ORAL TABS Take 1 tab po every hs LOVASTATIN 24111096209 No Longer Active Harinder Hernandez DO Active PREDNISONE 20 MG TAB 2 tabs daily for 4 days, 1 tab daily for 4 days, 1/2 tab daily for 4 days PREDNISONE 52147963687 No Longer Active Harinder Hernandez DO Active LEVAQUIN 500 MG ORAL TABS Take 1 tab po daily x 8 days LEVOFLOXACIN 22254863824 No Longer Active Harinder Hernandez DO Active VENTOLIN HFA 108 (90 BASE) MCG/ACT AERS 2 -4 puffs four times a day PRN 2013 ALBUTEROL SULFATE 30235630459 No Longer Active Jeri Sosa RPT,RMA Active ACEBUTOLOL HCL 200 MG CAPS 1 cap in the morning and 2 caps in the evening ACEBUTOLOL HCL 33152262729 No Longer Active Harinder Hernandez DO Active CEFDINIR 300 MG ORAL CAPS take 1 cap po bid x 10 days CEFDINIR 56877253059 No Longer Active Harinder Hernandez DO Active LOVASTATIN 40 MG TABS 1 pill by mouth nightly for cholesterol LOVASTATIN 69095655014 No Longer Active Nettie Newberry APRN Active NITROSTAT 0.4 MG SUBL 1 tab under tongueas needed for chest pain ( may take 3 total, 5 min apart, then call 911) NITROGLYCERIN 16121994677 No Longer Active Nettie Newberry APRN Active POTASSIUM CHLORIDE CR 10 MEQ CPCR 1 capsule by mouth daily 02/14 POTASSIUM CHLORIDE 51752204237 No Longer Active Nettie Newberry APRN Active TESSALON PERLES 100 MG CAP 1 to 2 tablets by mouth 3 times daily as needed for cough BENZONATATE 77380791838 No Longer Active Nettie Newberry APRN Active THEOPHYLLINE ER 200 MG ORAL [id number] Take 1 tab every 12 hours THEOPHYLLINE 85373007006 Active Tawnya Pardo MA Active PREDNISONE 20 MG TAB 2 po qd x 5 days PREDNISONE 15471749010 No Longer Active Jae Morgan MD Active AZITHROMYCIN 250 MG TABS 2 po qd x 1 day, then 1 po qd x 4 days AZITHROMYCIN 65915579978 No Longer Active Jae Morgan MD Active PREDNISONE 20 MG TAB 1 tab twice daily for 3 day, then one daily for three days PREDNISONE 42711921593 No Longer Active Jae Morgan MD Active SINGULAIR 10 MG TABS 1 pill by mouth every evening for breathing. MONTELUKAST SODIUM 66036728810 Active Tawnya Pardo MA Active TYLENOL 325 MG TAB 3 by mouth q4h as needed ACETAMINOPHEN 27082811825 Active Harinder Hernandez DO Active POTASSIUM CHLORIDE ER 10 MEQ CR-TABS take 1 tab po daily POTASSIUM CHLORIDE 67399258448 No Longer Active Harinder Hernandez DO Active PREDNISONE 20 MG TAB 1 TID x 2 days, then 1 BID x 3 days, then 1 Daily x 3 days, then stop PREDNISONE 43287798578 No Longer Active Derrickllkvng Montemayor APRN Active LEVAQUIN 500 MG TAB 1 tablet by mouth daily LEVOFLOXACIN 01668719165 No Longer Active Jillkvng Montemayor APRN Active NEURONTIN 300 MG CAP 1 cap by mouth three times daily for restless leg 06/22 GABAPENTIN 06418804050 No Longer Active Harinder Hernandez DO Active BENZONATATE 100 MG CAPS 1 cap po TID PRN BENZONATATE 69666177785 No Longer Active Harinder Hernandez DO Active MONTELUKAST SODIUM 10 MG TABS 1 tab po in the evening MONTELUKAST SODIUM 85097667653 No Longer Active Harinder Hernandez DO Active MUPIROCIN 2 % OINT apply to affected area BID x 14 days MUPIROCIN 17854725616 No Longer Active Harinder Hernandez DO Active TYLENOL EXTRA STRENGTH 500 MG TABS as needed ACETAMINOPHEN 61273177181 No Longer Active Harinder Hernandez DO Active PREDNISONE 10 MG TABS 1 tab po daily PREDNISONE 54712290428 No Longer Active Harinder Hernandez DO Active PREDNISONE 20 MG TAB 2 tabs daily for 4 days, 1 tab daily for 4 days, 1/2 tab daily for 4 days PREDNISONE 45551911179 No Longer Active Harinder Hernandez DO Active AZITHROMYCIN 250 MG TABS 2 po qd x 1 day, then 1 po qd x 4 days AZITHROMYCIN 10929628001 No Longer Active Harinder Hernandez DO Active PREDNISONE 20 MG TAB 3 tabs today, then 1 tab twice daily for 3 day, then one daily for three days PREDNISONE 55254330370 No Longer Active Harinder Hernandez DO Active NIFEDIAC CC 30 MG [id number] 1 tablet daily for raynaud's syndrome NIFEDIPINE 48403540731 No Longer Active Tawnya Pardo MA Active AMBIEN 10 MG TAB 1/2 tab by mouth at bedtime as needed for sleep ZOLPIDEM TARTRATE 51831251116 Active Harinder Hernandez DO Active CLONAZEPAM 1 MG TABS 1 tablet at bedtime for insomnia and restless legs 09/14 CLONAZEPAM 36008017639 Active Kaylah Newberry Active CLONAZEPAM 0.5 MG TABS 1 tab po daily CLONAZEPAM 49155582323 No Longer Active Harinder Hernandez DO Active PREDNISONE 10 MG TAB 1 tablet daily for COPD PREDNISONE 19469026262 Active Tawnya Pardo MA Active PROAIR HFA 108 (90 BASE) MCG/ACT AERS 2 puffs four times a day as needed 2012 ALBUTEROL SULFATE 40929643654 Active Tawnya Pardo MA Active FLOVENT HFA 110 MCG/ACT AERO 2 puffs inhaled b.i.d. FLUTICASONE PROPIONATE HFA 02447239708 Active Tawnya Pardo MA Active ACIPHEX 20 MG TBEC 1 tab po daily RABEPRAZOLE SODIUM 02056607271 Active Tawnya Pardo MA Active CLONAZEPAM 0.5 MG TABS 1 tab po daily CLONAZEPAM 0.5 MG TABS 471045 CLONAZEPAM Inactive PREDNISONE 20 MG TAB 3 tabs today, then 1 tab twice daily for 3 day, then one daily for three days PREDNISONE 20 MG TAB 978437 PREDNISONE Inactive PREDNISONE 20 MG TAB 2 tabs daily for 4 days, 1 tab daily for 4 days, 1/2 tab daily for 4 days PREDNISONE 20 MG TAB 796682 PREDNISONE Inactive PREDNISONE 10 MG TABS 1 tab po daily PREDNISONE 10 MG TABS 201930 PREDNISONE Inactive TYLENOL EXTRA STRENGTH 500 MG TABS as needed TYLENOL EXTRA STRENGTH 500 MG TABS 566103 ACETAMINOPHEN Inactive MUPIROCIN 2 % OINT apply to affected area BID x 14 days MUPIROCIN 2 % OINT 305953 MUPIROCIN Inactive MONTELUKAST SODIUM 10 MG TABS 1 tab po in the evening MONTELUKAST SODIUM 10 MG TABS 815055 MONTELUKAST SODIUM Inactive BENZONATATE 100 MG CAPS 1 cap po TID PRN BENZONATATE 100 MG CAPS 343211 BENZONATATE Inactive NEURONTIN 300 MG CAP 1 cap by mouth three times daily for restless leg 06/22 NEURONTIN 300 MG CAP 065707 GABAPENTIN Inactive LEVAQUIN 500 MG TAB 1 tablet by mouth daily LEVAQUIN 500 MG TAB 634793 LEVOFLOXACIN Inactive PREDNISONE 20 MG TAB 1 TID x 2 days, then 1 BID x 3 days, then 1 Daily x 3 days, then stop PREDNISONE 20 MG TAB 042237 PREDNISONE Inactive POTASSIUM CHLORIDE ER 10 MEQ CR-TABS take 1 tab po daily POTASSIUM CHLORIDE ER 10 MEQ CR-TABS POTASSIUM CHLORIDE Inactive PREDNISONE 20 MG TAB 1 tab twice daily for 3 day, then one daily for three days PREDNISONE 20 MG TAB 065400 PREDNISONE Inactive TESSALON PERLES 100 MG CAP 1 to 2 tablets by mouth 3 times daily as needed for cough TESSALON PERLES 100 MG CAP 544416 BENZONATATE Inactive POTASSIUM CHLORIDE CR 10 MEQ CPCR 1 capsule by mouth daily 02/14 POTASSIUM CHLORIDE CR 10 MEQ CPCR POTASSIUM CHLORIDE Inactive NITROSTAT 0.4 MG SUBL 1 tab under tongueas needed for chest pain ( may take 3 total, 5 min apart, then call 911) NITROSTAT 0.4 MG SUBL 315524 NITROGLYCERIN Inactive LOVASTATIN 40 MG TABS 1 pill by mouth nightly for cholesterol LOVASTATIN 40 MG TABS 464761 LOVASTATIN Inactive CEFDINIR 300 MG ORAL CAPS take 1 cap po bid x 10 days CEFDINIR 300 MG ORAL CAPS 827037 CEFDINIR Inactive ACEBUTOLOL HCL 200 MG CAPS 1 cap in the morning and 2 caps in the evening ACEBUTOLOL HCL 200 MG CAPS 867225 ACEBUTOLOL HCL Inactive VENTOLIN HFA 108 (90 BASE) MCG/ACT AERS 2 -4 puffs four times a day PRN 2013 VENTOLIN HFA 108 (90 BASE) MCG/ACT AERS ALBUTEROL SULFATE Inactive LEVAQUIN 500 MG ORAL TABS Take 1 tab po daily x 8 days LEVAQUIN 500 MG ORAL TABS 552548 LEVOFLOXACIN Inactive PREDNISONE 20 MG TAB 2 tabs daily for 4 days, 1 tab daily for 4 days, 1/2 tab daily for 4 days PREDNISONE 20 MG TAB 858681 PREDNISONE Inactive LOVASTATIN 40 MG ORAL TABS Take 1 tab po every hs LOVASTATIN 40 MG ORAL TABS 357718 LOVASTATIN Inactive DILAUDID 2 MG ORAL TABS Take 1/2 tab po every 4 hours as needed for pain 2014 DILAUDID 2 MG ORAL TABS 722067 HYDROMORPHONE HCL Inactive AMITRIPTYLINE HCL 25 MG ORAL TABS 1 q hs prn AMITRIPTYLINE HCL 25 MG ORAL TABS 069875 AMITRIPTYLINE HCL Inactive MECLIZINE HCL 25 MG TAB 1 tablet three times daily for 3 days, then 1/2 tab three times daily for 3 days. MECLIZINE HCL 25 MG TAB 927235 MECLIZINE HCL Inactive AMLODIPINE BESYLATE 5 MG ORAL TABS Take 1 tab po daily AMLODIPINE BESYLATE 5 MG ORAL TABS 069546 AMLODIPINE BESYLATE Inactive TOPIRAMATE 25 MG TABS 1 tab po BID TOPIRAMATE 25 MG TABS 621210 TOPIRAMATE Inactive PREDNISONE 20 MG TAB 1 tablet twice daily for 2 days, then 1 tablet once daily for 2 days PREDNISONE 20 MG TAB 671263 PREDNISONE Inactive PREDNISONE 20 MG TAB 1 tab twice daily for 3 day, then one daily for three days PREDNISONE 20 MG TAB 714713 PREDNISONE Inactive AZITHROMYCIN 250 MG TABS 2 po qd x 1 day, then 1 po qd x 4 days AZITHROMYCIN 250 MG TABS 1840965 AZITHROMYCIN Inactive AZITHROMYCIN 250 MG TABS 2 po qd x 1 day, then 1 po qd x 4 days AZITHROMYCIN 250 MG TABS 4028971 AZITHROMYCIN Inactive PREDNISONE 20 MG TAB 2 po qd x 5 days PREDNISONE 20 MG TAB 386309 PREDNISONE Inactive Vital Signs Date Name Value [...] Magnesium - Chemistry sodium, serum 142 mmol/L 908-187 6539/08/08 LDL cholesterol, serum 96 mg/dL 0-130 HDL cholesterol, serum 66 mg/dL 32-96 triglyceride, serum, fasting 92 mg/dL 30-200 cholesterol, serum 180 mg/dL 296-364 0261/08/08 carbon dioxide, venous blood 27.4 mmol/L 21.0-32.0 [...] 10.0-20.0 Encounters Code Encounter Date Provider Facility CPT-38260 Level 3 Est. Patient 09:58:58 CDT Harinder Cr [facility] CPT-98955 Level 3 Est. Patient 12:37:21 CDT Harinder Hernandez [facility] CPT-55310 Level 3 Est. Patient 18:37:17 CDT Harinder Cr [facility] CPT-12114 Level 4 Est. Patient 11:15:54 CDT Nettie Newberry [facility] CPT-48945 Level 3 Est. Patient 16:42:24 CDT Harinder Hernandez [facility] CPT-93602 Level 3 Est. Patient 15:03:36 CDT Harinder Hernandez [facility] CPT-91019 Level 3 Est. Patient 15:03:20 CDT Harinder Hernandez [facility] CPT-16174 Level 3 Est. Patient 12:14:34 CDT Harinder Hernandez [facility] CPT-95263 Level 3 Est. Patient 13:47:15 CDT Harinder Hernandez [facility] CPT-82274 Level 3 Est. Patient 14:08:24 CDT Harinder Hernandez [facility] CPT-54378 Level 3 Est. Patient 10:07:15 CDT Harinder Hernandez [facility] CPT-89914 Level 3 Est. Patient 10:06:59 CDT Harinder Hernandez [facility] CPT-52642 Level 3 Est. Patient 15:53:29 CDT Jae Morgan [facility] CPT-65366 Level 3 Est. Patient 17:19:04 CDT Harinder Hernandez [facility] CPT-48713 Level 3 Est. Patient 11:13:01 CDT Harinder Hernandez [facility] CPT-72121 Level 3 Est. Patient 09:03:58 CDT Harinder Hernandez [facility] CPT-46580 Level 3 Est. Patient 14:46:45 BOATWRIGHT Harinder Hernandez [facility] CPT-05636 Level 3 Est. Patient 09:35:49 BOATWRIGHT Harinder Shaye Hernandez [facility] CPT-39059 Level 3 Est. Patient 09:29:37 BOATWRIGHT Harinder Cr David [facility] CPT-06293 Level 3 Est. Patient 15:51:07 CDT Harinder Hernandez [facility] CPT-70567 Level 3 Est. Patient 18:13:13 CDT Harinder Hernandez [facility] CPT-13570 Level 3 Est. Patient 10:44:19 CDT Harinder Hernandez [facility] CPT-72374 Level 4 Est. Patient 10:07:19 BOATWRIGHT Harinder Cr [facility] CPT-38019 Level 3 Est. Patient 15:59:32 BOATWRIGHT Harinder Cr [facility] Procedures Code Procedure Name Date Entry Date Standard Description CPT-TCMM Transitional Care Mgmt-Moderate 11:33:57 CDT CPT-32327 No Charge Offi Visit 14:11:29 CDT CPT-81724 Magnesium - LAB USE ONLY 10:45:44 CDT CPT-12730 Lipid - LAB USE ONLY 10:45:44 CDT CPT-00708 CBC - LAB USE ONLY 10:45:44 CDT CPT-23533 Venipuncture Draw Fee 10:45:43 CDT CPT-39273 Venipuncture Draw Fee 18:21:27 CDT CPT-JTINJ Asp/Joint Injection 18:38:04 CDT CPT-32915 Immunization Each Additional Inj 17:38:04 CDT CPT-11691 Immunization Single Admin 17:38:04 CDT CPT-49858 Prevnar 13 17:38:04 CDT CPT-33693 Fluzone Quadrivalent preservative free (>=3yrs.) 17:38: 04 CDT CPT-04782 No Charge Offi Visit 11:14:03 CDT CPT-67916 Chest 2V Frontal and Lat 14:00:18 CDT CPT-OV Office Visit 16:10:28 CDT CPT-JTINJ Asp/Joint Injection 09:03:57 CDT CPT-Cryo Cryotherapy 09:35:49 BOATWRIGHT CPT-JTINJ Asp/Joint Injection 09:34:45 BOATWRIGHT CPT-J2930 Solu Medrol 125 mg (Methyl Prednisolone Sodium Succinate) 20:37:27 CDT CPT-85382 Abx/Therapy Injection 20:37:27 CDT CPT-02935 Port a cath flush 08:15:51 CDT CPT-32451 Port a cath flush 09:54:16 CDT CPT-71656 Port a cath flush 09:38:02 CDT CPT-96279 Port a cath flush 11:00:27 BOATWRIGHT
--- OUTSIDE RECORDS SUMMARY | 2017-12-29 04:18 | XMS REPORT | Clinical Summary ---
Author Author Admin, QIE Organization [facility] Address Unknown Phone Unavailable Allergies, Adverse Reactions, [...] then one daily for three days PREDNISONE [id number] No Longer Active Harinder Hernandez DO Active PREDNISONE 20 MG TAB 1 tablet twice daily for 2 days, then 1 tablet once daily for 2 days PREDNISONE 74350383566 No Longer Active Harinder Hernandez DO Active ASMANEX 120 METERED DOSES 220 MCG/INH INH AEPB 2 puffs orally twice daily MOMETASONE FUROATE 96457430250 Active Jeri Sosa RPT,RMA Active NIFEDIPINE ER 30 MG ORAL [id number] 1 daily NIFEDIPINE 48666024403 Active Tawnya Pardo MA Active TOPIRAMATE 25 MG TABS 1 tab po BID TOPIRAMATE 89540062329 No Longer Active Nettie Newberry APRN Active AMLODIPINE BESYLATE 5 MG ORAL TABS Take 1 tab po daily AMLODIPINE BESYLATE 67665100172 No Longer Active Nettie Newberry APRN Active MECLIZINE HCL 25 MG TAB 1 tablet three times daily for 3 days, then 1/2 tab three times daily for 3 days. MECLIZINE HCL 00441493047 No Longer Active Nettie Newberry APRN Active AMITRIPTYLINE HCL 25 MG ORAL TABS 1 q hs prn AMITRIPTYLINE HCL 19355719987 No Longer Active Nettie Newberry APRN Active DILAUDID 2 MG ORAL TABS Take 1/2 tab po every 4 hours as needed for pain 2014 HYDROMORPHONE HCL 76335575766 No Longer Active Nettie Newberry APRN Active CLOPIDOGREL BISULFATE 75 MG ORAL TABS 1 tab by mouth once daily CLOPIDOGREL BISULFATE 36924979708 Active Jeri Sosa RPT,RMA Active ATORVASTATIN CALCIUM 10 MG ORAL TABS 1 at bedtime ATORVASTATIN CALCIUM 28261155592 Active Jeri Sosa RPT,RMA Active LOVASTATIN 40 MG ORAL TABS Take 1 tab po every hs LOVASTATIN 83557711087 No Longer Active Harinder Hernandez DO Active PREDNISONE 20 MG TAB 2 tabs daily for 4 days, 1 tab daily for 4 days, 1/2 tab daily for 4 days PREDNISONE 32229011035 No Longer Active Harinder Hernandez DO Active LEVAQUIN 500 MG ORAL TABS Take 1 tab po daily x 8 days LEVOFLOXACIN 37229170797 No Longer Active Harinder Hernandez DO Active VENTOLIN HFA 108 (90 BASE) MCG/ACT AERS 2 -4 puffs four times a day PRN 2013 ALBUTEROL SULFATE 06948093450 No Longer Active Jeri Sosa RPT,RMA Active ACEBUTOLOL HCL 200 MG CAPS 1 cap in the morning and 2 caps in the evening ACEBUTOLOL HCL 86894591775 No Longer Active Harinder Hernandez DO Active CEFDINIR 300 MG ORAL CAPS take 1 cap po bid x 10 days CEFDINIR 36354825510 No Longer Active Harinder Hernandez DO Active LOVASTATIN 40 MG TABS 1 pill by mouth nightly for cholesterol LOVASTATIN 33538124252 No Longer Active Nettie Newberry APRN Active NITROSTAT 0.4 MG SUBL 1 tab under tongueas needed for chest pain ( may take 3 total, 5 min apart, then call 911) NITROGLYCERIN 26302932021 No Longer Active Nettie Newberry APRN Active POTASSIUM CHLORIDE CR 10 MEQ CPCR 1 capsule by mouth daily 02/14 POTASSIUM CHLORIDE 45089523814 No Longer Active Nettie Newberry APRN Active TESSALON PERLES 100 MG CAP 1 to 2 tablets by mouth 3 times daily as needed for cough BENZONATATE 37969838214 No Longer Active Nettie Newberry APRN Active THEOPHYLLINE ER 200 MG ORAL [id number] Take 1 tab every 12 hours THEOPHYLLINE 69815564681 Active Jeri Sosa RPT,RMA Active PREDNISONE 20 MG TAB 2 po qd x 5 days PREDNISONE 31298071467 No Longer Active Jae Morgan MD Active AZITHROMYCIN 250 MG TABS 2 po qd x 1 day, then 1 po qd x 4 days AZITHROMYCIN 96031059939 No Longer Active Jae Morgan MD Active PREDNISONE 20 MG TAB 1 tab twice daily for 3 day, then one daily for three days PREDNISONE 43407629176 No Longer Active Jae Morgan MD Active SINGULAIR 10 MG TABS 1 pill by mouth every evening for breathing. MONTELUKAST SODIUM 86355997394 Active Tawnya Pardo MA Active TYLENOL 325 MG TAB 3 by mouth q4h as needed ACETAMINOPHEN 04715305045 Active Harinder Hernandez DO Active POTASSIUM CHLORIDE ER 10 MEQ CR-TABS take 1 tab po daily POTASSIUM CHLORIDE 74566131577 No Longer Active Harinder Hernandez DO Active PREDNISONE 20 MG TAB 1 TID x 2 days, then 1 BID x 3 days, then 1 Daily x 3 days, then stop PREDNISONE 80036084221 No Longer Active Jillina Frazell FUR REPAIRER Active LEVAQUIN 500 MG TAB 1 tablet by mouth daily LEVOFLOXACIN 01184625580 No Longer Active Jillina Frazell FUR REPAIRER Active NEURONTIN 300 MG CAP 1 cap by mouth three times daily for restless leg 06/22 GABAPENTIN 87456121238 No Longer Active Harinder Hernandez DO Active BENZONATATE 100 MG CAPS 1 cap po TID PRN BENZONATATE 57461384794 No Longer Active Harinder Hernandez DO Active MONTELUKAST SODIUM 10 MG TABS 1 tab po in the evening MONTELUKAST SODIUM 14265522650 No Longer Active Harinder Hernandez DO Active MUPIROCIN 2 % OINT apply to affected area BID x 14 days MUPIROCIN 08683992183 No Longer Active Harinder Hernandez DO Active TYLENOL EXTRA STRENGTH 500 MG TABS as needed ACETAMINOPHEN 68232271793 No Longer Active Harinder W David DO Active PREDNISONE 10 MG TABS 1 tab po daily PREDNISONE 30611529396 No Longer Active Harinder Hernandez DO Active PREDNISONE 20 MG TAB 2 tabs daily for 4 days, 1 tab daily for 4 days, 1/2 tab daily for 4 days PREDNISONE 30793525287 No Longer Active Harinder Hernandez Active AZITHROMYCIN 250 MG TABS 2 po qd x 1 day, then 1 po qd x 4 days AZITHROMYCIN 56121601531 No Longer Active Harinder Hernandez Active PREDNISONE 20 MG TAB 3 tabs today, then 1 tab twice daily for 3 day, then one daily for three days PREDNISONE 73189241566 No Longer Active Harinder Hernandez DO Active NIFEDIAC CC 30 MG [id number] 1 tablet daily for raynaud's syndrome NIFEDIPINE 98249780132 No Longer Active Tawnya Pardo MA Active AMBIEN 10 MG TAB 1/2 tab by mouth at bedtime as needed for sleep ZOLPIDEM TARTRATE 53429356662 Active Harinder Hernandez DO Active CLONAZEPAM 1 MG TABS 1 tablet at bedtime for insomnia and restless legs 09/14 CLONAZEPAM 88106114645 Active Jeri Sosa RPT,RMA Active CLONAZEPAM 0.5 MG TABS 1 tab po daily CLONAZEPAM 61077653668 No Longer Active Harinder Hernandez DO Active PREDNISONE 10 MG TAB 1 tablet daily for COPD PREDNISONE 75326400631 Active Tawnya Pardo MA Active PROAIR HFA 108 (90 BASE) MCG/ACT AERS 2 puffs four times a day as needed 2012 ALBUTEROL SULFATE 98258743325 Active Tawnya Pardo MA Active FLOVENT HFA 110 MCG/ACT AERO 2 puffs inhaled b.i.d. FLUTICASONE PROPIONATE HFA 94832928663 Active Tawnya Pardo MA Active EPIPEN 0.3 MG/0.3ML URIEL DIRECTED EPINEPHRINE Active Jeri Sosa RPT,RMA Active ACIPHEX 20 MG TBEC 1 tab po daily RABEPRAZOLE SODIUM 50810452357 Active Tawnya Pardo MA Active CLONAZEPAM 0.5 MG TABS 1 tab po daily CLONAZEPAM 0.5 MG TABS 885384 CLONAZEPAM Inactive PREDNISONE 20 MG TAB 3 tabs today, then 1 tab twice daily for 3 day, then one daily for three days PREDNISONE 20 MG TAB 958604 PREDNISONE Inactive PREDNISONE 20 MG TAB 2 tabs daily for 4 days, 1 tab daily for 4 days, 1/2 tab daily for 4 days PREDNISONE 20 MG TAB 142983 PREDNISONE Inactive PREDNISONE 10 MG TABS 1 tab po daily PREDNISONE 10 MG TABS 089502 PREDNISONE Inactive TYLENOL EXTRA STRENGTH 500 MG TABS as needed TYLENOL EXTRA STRENGTH 500 MG TABS 579898 ACETAMINOPHEN Inactive MUPIROCIN 2 % OINT apply to affected area BID x 14 days MUPIROCIN 2 % OINT 506551 MUPIROCIN Inactive MONTELUKAST SODIUM 10 MG TABS 1 tab po in the evening MONTELUKAST SODIUM 10 MG TABS 941377 MONTELUKAST SODIUM Inactive BENZONATATE 100 MG CAPS 1 cap po TID PRN BENZONATATE 100 MG CAPS 778982 BENZONATATE Inactive NEURONTIN 300 MG CAP 1 cap by mouth three times daily for restless leg 06/22 NEURONTIN 300 MG CAP 775707 GABAPENTIN Inactive LEVAQUIN 500 MG TAB 1 tablet by mouth daily LEVAQUIN 500 MG TAB 714513 LEVOFLOXACIN Inactive PREDNISONE 20 MG TAB 1 TID x 2 days, then 1 BID x 3 days, then 1 Daily x 3 days, then stop PREDNISONE 20 MG TAB 427458 PREDNISONE Inactive POTASSIUM CHLORIDE ER 10 MEQ CR-TABS take 1 tab po daily POTASSIUM CHLORIDE ER 10 MEQ CR-TABS POTASSIUM CHLORIDE Inactive PREDNISONE 20 MG TAB 1 tab twice daily for 3 day, then one daily for three days PREDNISONE 20 MG TAB 559319 PREDNISONE Inactive TESSALON PERLES 100 MG CAP 1 to 2 tablets by mouth 3 times daily as needed for cough TESSALON PERLES 100 MG CAP 054308 BENZONATATE Inactive POTASSIUM CHLORIDE CR 10 MEQ [...] nightly for cholesterol LOVASTATIN 40 MG TABS 660103 LOVASTATIN Inactive CEFDINIR 300 MG ORAL CAPS take 1 cap po bid x 10 days CEFDINIR 300 MG ORAL CAPS 302261 CEFDINIR Inactive ACEBUTOLOL HCL 200 MG CAPS 1 cap in the morning and 2 caps in the evening ACEBUTOLOL HCL 200 MG CAPS 179393 ACEBUTOLOL HCL Inactive VENTOLIN HFA 108 (90 BASE) MCG/ACT AERS 2 -4 puffs four times a day PRN 2013 VENTOLIN HFA 108 (90 BASE) MCG/ACT AERS ALBUTEROL SULFATE Inactive LEVAQUIN 500 MG ORAL TABS Take 1 tab po daily x 8 days LEVAQUIN 500 MG ORAL TABS 604142 LEVOFLOXACIN Inactive PREDNISONE 20 MG TAB 2 tabs daily for 4 days, 1 tab daily for 4 days, 1/2 tab daily for 4 days PREDNISONE 20 MG TAB 354421 PREDNISONE Inactive LOVASTATIN 40 MG ORAL TABS Take 1 tab po every hs LOVASTATIN 40 MG ORAL TABS 186659 LOVASTATIN Inactive DILAUDID 2 MG ORAL TABS Take 1/2 tab po every 4 hours as needed for pain 2014 DILAUDID 2 MG ORAL TABS 425658 HYDROMORPHONE HCL Inactive AMITRIPTYLINE HCL 25 MG ORAL TABS 1 q hs prn AMITRIPTYLINE HCL 25 MG ORAL TABS 518677 AMITRIPTYLINE HCL Inactive MECLIZINE HCL 25 MG TAB 1 tablet three times daily for 3 days, then 1/2 tab three times daily for 3 days. MECLIZINE HCL 25 MG TAB 014256 MECLIZINE HCL Inactive AMLODIPINE BESYLATE 5 MG ORAL TABS Take 1 tab po daily AMLODIPINE BESYLATE 5 MG ORAL TABS 865453 AMLODIPINE BESYLATE Inactive TOPIRAMATE 25 MG TABS 1 tab po BID TOPIRAMATE 25 MG TABS 717710 TOPIRAMATE Inactive PREDNISONE 20 MG TAB 1 tablet twice daily for 2 days, then 1 tablet once daily for 2 days PREDNISONE 20 MG TAB 161199 PREDNISONE Inactive PREDNISONE 20 MG TAB 1 tab twice daily for 3 day, then one daily for three days PREDNISONE 20 MG TAB 756335 PREDNISONE Inactive AZITHROMYCIN 250 MG TABS 2 po qd x 1 day, then 1 po qd x 4 days AZITHROMYCIN 250 MG TABS 6161215 AZITHROMYCIN Inactive AZITHROMYCIN 250 MG TABS 2 po qd x 1 day, then 1 po qd x 4 days AZITHROMYCIN 250 MG TABS 8247651 AZITHROMYCIN Inactive PREDNISONE 20 MG TAB 2 po qd x 5 days PREDNISONE 20 MG TAB 024305 PREDNISONE Inactive Vital Signs Date Name Value [...] Panel - Chemistry sodium, serum 138 mmol/L 391-582 2446/09/24 potassium, serum 3.5 mmol/L 3.5-5.2 chloride, serum [...] Magnesium - Chemistry cholesterol, serum 180 mg/dL 727-809 4902/08/08 triglyceride, serum, fasting 92 mg/dL 30-200 HDL cholesterol, serum 66 mg/dL 32-96 LDL cholesterol, serum 96 mg/dL 0-130 sodium, serum 142 mmol/L 080-162 0917/08/08 carbon dioxide, venous blood 27.4 mmol/L 21.0-32.0 [...] 10.0-20.0 Encounters Code Encounter Date Provider Facility CPT-68024 Level 3 Est. Patient 09:58:58 CDT Harinder Cr [facility] CPT-93643 Level 3 Est. Patient 12:37:21 CDT Harinder Cr [facility] CPT-90449 Level 3 Est. Patient 18:37:17 CDT Harinder Cr [facility] CPT-64650 Level 4 Est. Patient 11:15:54 CDT Nettie Newberry APRN [facility] CPT-46222 Level 3 Est. Patient 16:42:24 CDT Harinder Cr [facility] CPT-45732 Level 3 Est. Patient 15:03:36 CDT Harinder Cr [facility] CPT-90288 Level 3 Est. Patient 15:03:20 CDT Harinder Cr [facility] CPT-72330 Level 3 Est. Patient 12:14:34 CDT Harinder Hernandez [facility] CPT-56607 Level 3 Est. Patient 13:47:15 CDT Harinder Cr [facility] CPT-84428 Level 3 Est. Patient 14:08:24 CDT Harinder Cr [facility] CPT-80793 Level 3 Est. Patient 10:07:15 CDT Harinder Cr [facility] CPT-78855 Level 3 Est. Patient 10:06:59 CDT Harinder Cr [facility] CPT-36679 Level 3 Est. Patient 15:53:29 CDT Jae Morgan MD [facility] CPT-09263 Level 3 Est. Patient 17:19:04 CDT Harinder Hernandez [facility] CPT-06573 Level 3 Est. Patient 11:13:01 CDT Harinder Hernandez [facility] CPT-03978 Level 3 Est. Patient 09:03:58 CDT Harinder Cr [facility] CPT-87907 Level 3 Est. Patient 14:46:45 OIL WELL SERVICE OPERATOR Harinder Hernandez [facility] CPT-06950 Level 3 Est. Patient 09:35:49 OIL WELL SERVICE OPERATOR Harinder Hernandez [facility] CPT-11309 Level 3 Est. Patient 09:29:37 OIL WELL SERVICE OPERATOR Harinder Hernandez [facility] CPT-86184 Level 3 Est. Patient 15:51:07 CDT Harinder Hernandez [facility] CPT-64433 Level 3 Est. Patient 18:13:13 CDT Harinder Hernandez [facility] CPT-76812 Level 3 Est. Patient 10:44:19 CDT Harinder Cr [facility] CPT-45556 Level 4 Est. Patient 10:07:19 OIL WELL SERVICE OPERATOR Harinder Hernandez [facility] CPT-14444 Level 3 Est. Patient 15:59:32 OIL WELL SERVICE OPERATOR Harinder Cr [facility] Procedures Code Procedure Name Date Entry Date Standard Description CPT-TCMM Transitional Care Mgmt-Moderate 11:33:57 CDT CPT-55710 No Charge Offi Visit 14:11:29 CDT CPT-78323 Magnesium - LAB USE ONLY 10:45:44 CDT CPT-58612 Lipid - LAB USE ONLY 10:45:44 CDT CPT-16969 CBC - LAB USE ONLY 10:45:44 CDT CPT-96763 Venipuncture Draw Fee 10:45:43 CDT CPT-50040 Venipuncture Draw Fee 18:21:27 CDT CPT-JTINJ Asp/Joint Injection 18:38:04 CDT CPT-16904 Immunization Each Additional Inj 17:38:04 CDT CPT-30279 Immunization Single Admin 17:38:04 CDT CPT-05450 Prevnar 13 17:38:04 CDT CPT-08894 Fluzone Quadrivalent preservative free (>=3yrs.) 17:38: 04 CDT CPT-92487 No Charge Offi Visit 11:14:03 CDT CPT-06826 Chest 2V Frontal and Lat 14:00:18 CDT CPT-OV Office Visit 16:10:28 CDT CPT-JTINJ Asp/Joint Injection 09:03:57 CDT CPT-Cryo Cryotherapy 09:35:49 OIL WELL SERVICE OPERATOR CPT-JTINJ Asp/Joint Injection 09:34:45 OIL WELL SERVICE OPERATOR CPT-J2930 Solu Medrol 125 mg (Methyl Prednisolone Sodium Succinate) 20:37:27 CDT CPT-20683 Abx/Therapy Injection 20:37:27 CDT CPT-30096 Port a cath flush 08:15:51 CDT CPT-79392 Port a cath flush 09:54:16 CDT CPT-83089 Port a cath flush 09:38:02 CDT CPT-84601 Port a cath flush 11:00:27 OIL WELL SERVICE OPERATOR
--- OUTSIDE RECORDS SUMMARY | 2017-12-29 04:20 | XMS REPORT | Clinical Summary ---
Author Author Admin, QIE Organization [facility] Address Unknown Phone Unavailable Allergies, Adverse Reactions, [...] 4hrs PRN Wheezing Dx: J44.1 ALBUTEROL SULFATE 16208310998 Active Kaylah Newberry Active AMLODIPINE BESYLATE 5 MG TABS 1 tablet by mouth daily AMLODIPINE BESYLATE 96299407717 Active Harinder Hernandez DO Active NIFEDIPINE ER 30 MG ORAL [id number] 1 daily NIFEDIPINE 73197758676 No Longer Active Harinder Hernandez DO Active POTASSIUM CHLORIDE 20 MEQ ORAL PACK Take 1 tablet by mouth daily POTASSIUM CHLORIDE 25003215175 Active Ciera Pimentel Active FLOVENT HFA 110 MCG/ACT AERO 2 puffs inhaled b.i.d. FLUTICASONE PROPIONATE HFA 76766599359 Active Harinder Hernandez DO Active POTASSIUM CHLORIDE CR 10 MEQ CPCR 1 capsule by mouth daily POTASSIUM CHLORIDE 28013514627 Active Harinder Hernandez DO Active EPIPEN 2-BRUNA 0.3 MG/0.3ML INJ SOAJ 1 INJ NEEDED EPINEPHRINE 12350023038 Active Harinder Hernandez DO Active PREDNISONE 20 MG TAB 1 tab twice daily for 3 day, then one daily for three days PREDNISONE 27772272278 No Longer Active Harinder Hernandez DO Active PREDNISONE 20 MG TAB 1 tablet twice daily for 2 days, then 1 tablet once daily for 2 days PREDNISONE 65202043184 No Longer Active Harinder Hernandez DO Active ASMANEX 120 METERED DOSES 220 MCG/INH INH AEPB 2 puffs orally twice daily MOMETASONE FUROATE 00669844500 Active Jeri Sosa RPT,RMA Active TOPIRAMATE 25 MG TABS 1 tab po BID TOPIRAMATE 85792390575 No Longer Active Nettie Newberry APRN Active AMLODIPINE BESYLATE 5 MG ORAL TABS Take 1 tab po daily AMLODIPINE BESYLATE 17524930748 No Longer Active Nettie Rohith MAHENDRA Active MECLIZINE HCL 25 MG TAB 1 tablet three times daily for 3 days, then 1/2 tab three times daily for 3 days. MECLIZINE HCL 23127245728 No Longer Active Nettie Newberry APRN Active AMITRIPTYLINE HCL 25 MG ORAL TABS 1 q hs prn AMITRIPTYLINE HCL 91483169279 No Longer Active Nettie Rohith MAHENDRA Active DILAUDID 2 MG ORAL TABS Take 1/2 tab po every 4 hours as needed for pain 2014 HYDROMORPHONE HCL 40958657822 No Longer Active Nettie Newberry APRN Active CLOPIDOGREL BISULFATE 75 MG ORAL TABS 1 tab by mouth once daily CLOPIDOGREL BISULFATE 79115451589 Active Tawnya Pardo MA Active ATORVASTATIN CALCIUM 10 MG ORAL TABS 1 at bedtime ATORVASTATIN CALCIUM 47106304287 Active Tawnya Pardo MA Active LOVASTATIN 40 MG ORAL TABS Take 1 tab po every hs LOVASTATIN 66444014900 No Longer Active Harinder Hernandez DO Active PREDNISONE 20 MG TAB 2 tabs daily for 4 days, 1 tab daily for 4 days, 1/2 tab daily for 4 days PREDNISONE 94778506159 No Longer Active Harinder Hernandez DO Active LEVAQUIN 500 MG ORAL TABS Take 1 tab po daily x 8 days LEVOFLOXACIN 60946449734 No Longer Active Harinder Hernandez DO Active VENTOLIN HFA 108 (90 BASE) MCG/ACT AERS 2 -4 puffs four times a day PRN 2013 ALBUTEROL SULFATE 94996264760 No Longer Active Jeri Sosa RPT,RMA Active ACEBUTOLOL HCL 200 MG CAPS 1 cap in the morning and 2 caps in the evening ACEBUTOLOL HCL 99339410087 No Longer Active Harinder Hernandez DO Active CEFDINIR 300 MG ORAL CAPS take 1 cap po bid x 10 days CEFDINIR 42895772556 No Longer Active Harinder Hernandez DO Active LOVASTATIN 40 MG TABS 1 pill by mouth nightly for cholesterol LOVASTATIN 68028405558 No Longer Active Nettie Newberry APRN Active NITROSTAT 0.4 MG SUBL 1 tab under tongueas needed for chest pain ( may take 3 total, 5 min apart, then call 911) NITROGLYCERIN 86088798364 No Longer Active Nettie Newberry APRN Active POTASSIUM CHLORIDE CR 10 MEQ CPCR 1 capsule by mouth daily 02/14 POTASSIUM CHLORIDE 33772754386 No Longer Active Nettie Newberry APRN Active TESSALON PERLES 100 MG CAP 1 to 2 tablets by mouth 3 times daily as needed for cough BENZONATATE 96914375049 No Longer Active Nettie Newberry APRN Active THEOPHYLLINE ER 200 MG ORAL [id number] Take 1 tab every 12 hours THEOPHYLLINE 12798817308 Active Tawnya Pardo MA Active PREDNISONE 20 MG TAB 2 po qd x 5 days PREDNISONE 53740794177 No Longer Active Jae Morgan MD Active AZITHROMYCIN 250 MG TABS 2 po qd x 1 day, then 1 po qd x 4 days AZITHROMYCIN 41300483947 No Longer Active Jae Morgan MD Active PREDNISONE 20 MG TAB 1 tab twice daily for 3 day, then one daily for three days PREDNISONE 95234425406 No Longer Active Jae Morgan MD Active SINGULAIR 10 MG TABS 1 pill by mouth every evening for breathing. MONTELUKAST SODIUM 29406337143 Active Tawnya Pardo MA Active TYLENOL 325 MG TAB 3 by mouth q4h as needed ACETAMINOPHEN 59880529036 Active Harinder Hernandez DO Active POTASSIUM CHLORIDE ER 10 MEQ CR-TABS take 1 tab po daily POTASSIUM CHLORIDE 81916062205 No Longer Active Harinder Hernandez DO Active PREDNISONE 20 MG TAB 1 TID x 2 days, then 1 BID x 3 days, then 1 Daily x 3 days, then stop PREDNISONE 85938493082 No Longer Active Jillina Frazell FLASK FITTER Active LEVAQUIN 500 MG TAB 1 tablet by mouth daily LEVOFLOXACIN 68095561524 No Longer Active Jillina Frazell FLASK FITTER Active NEURONTIN 300 MG CAP 1 cap by mouth three times daily for restless leg 06/22 GABAPENTIN 69293865491 No Longer Active Harinder Hernandez DO Active BENZONATATE 100 MG CAPS 1 cap po TID PRN BENZONATATE 08853360022 No Longer Active Harinder Hernandez DO Active MONTELUKAST SODIUM 10 MG TABS 1 tab po in the evening MONTELUKAST SODIUM 54562843760 No Longer Active Harinder Hernandez DO Active MUPIROCIN 2 % OINT apply to affected area BID x 14 days MUPIROCIN 08736933794 No Longer Active Harinder Hernandez DO Active TYLENOL EXTRA STRENGTH 500 MG TABS as needed ACETAMINOPHEN 14855619545 No Longer Active Harinder Hernandez DO Active PREDNISONE 10 MG TABS 1 tab po daily PREDNISONE 95526913359 No Longer Active Harinder Hernandez DO Active PREDNISONE 20 MG TAB 2 tabs daily for 4 days, 1 tab daily for 4 days, 1/2 tab daily for 4 days PREDNISONE 20698069516 No Longer Active Harinder Hernandez DO Active AZITHROMYCIN 250 MG TABS 2 po qd x 1 day, then 1 po qd x 4 days AZITHROMYCIN 34892595989 No Longer Active Harinder Hernandez DO Active PREDNISONE 20 MG TAB 3 tabs today, then 1 tab twice daily for 3 day, then one daily for three days PREDNISONE 14339880184 No Longer Active Harinder Hernandez DO Active NIFEDIAC CC 30 MG [id number] 1 tablet daily for raynaud's syndrome NIFEDIPINE 65655858045 No Longer Active Tawnya Pardo MA Active AMBIEN 10 MG TAB 1/2 tab by mouth at bedtime as needed for sleep ZOLPIDEM TARTRATE 26904243883 Active Harinder Hernandez DO Active CLONAZEPAM 1 MG TABS 1 tablet at bedtime for insomnia and restless legs 09/14 CLONAZEPAM 94374623803 Active Harinder Hernandez DO Active CLONAZEPAM 0.5 MG TABS 1 tab po daily CLONAZEPAM 82530667592 No Longer Active Harinder Hernandez DO Active PREDNISONE 10 MG TAB 1 tablet daily for COPD PREDNISONE 84384936012 Active Tawnya Pardo MA Active PROAIR HFA 108 (90 BASE) MCG/ACT AERS 2 puffs four times a day as needed 2012 ALBUTEROL SULFATE 94552886484 Active Tawnya Pardo MA Active FLOVENT HFA 110 MCG/ACT AERO 2 puffs inhaled b.i.d. FLUTICASONE PROPIONATE HFA 11402665763 Active Tawnya Pardo MA Active ACIPHEX 20 MG TBEC 1 tab po daily RABEPRAZOLE SODIUM 57755574228 Active Kaylah Newberry Active CLONAZEPAM 0.5 MG TABS 1 tab po daily CLONAZEPAM 0.5 MG TABS 057114 CLONAZEPAM Inactive PREDNISONE 20 MG TAB 3 tabs today, then 1 tab twice daily for 3 day, then one daily for three days PREDNISONE 20 MG TAB 795677 PREDNISONE Inactive PREDNISONE 20 MG TAB 2 tabs daily for 4 days, 1 tab daily for 4 days, 1/2 tab daily for 4 days PREDNISONE 20 MG TAB 203698 PREDNISONE Inactive PREDNISONE 10 MG TABS 1 tab po daily PREDNISONE 10 MG TABS 883106 PREDNISONE Inactive TYLENOL EXTRA STRENGTH 500 MG TABS as needed TYLENOL EXTRA STRENGTH 500 MG TABS 943022 ACETAMINOPHEN Inactive MUPIROCIN 2 % OINT apply to affected area BID x 14 days MUPIROCIN 2 % OINT 858702 MUPIROCIN Inactive MONTELUKAST SODIUM 10 MG TABS 1 tab po in the evening MONTELUKAST SODIUM 10 MG TABS 20010818 MONTELUKAST SODIUM Inactive BENZONATATE 100 MG CAPS 1 cap po TID PRN BENZONATATE 100 MG CAPS 19730321 BENZONATATE Inactive NEURONTIN 300 MG CAP 1 cap by mouth three times daily for restless leg 06/22 NEURONTIN 300 MG CAP 964208 GABAPENTIN Inactive LEVAQUIN 500 MG TAB 1 tablet by mouth daily LEVAQUIN 500 MG TAB 539827 LEVOFLOXACIN Inactive PREDNISONE 20 MG TAB 1 TID x 2 days, then 1 BID x 3 days, then 1 Daily x 3 days, then stop PREDNISONE 20 MG TAB 914587 PREDNISONE Inactive POTASSIUM CHLORIDE ER 10 MEQ CR-TABS take 1 tab po daily POTASSIUM CHLORIDE ER 10 MEQ CR-TABS POTASSIUM CHLORIDE Inactive PREDNISONE 20 MG TAB 1 tab twice daily for 3 day, then one daily for three days PREDNISONE 20 MG TAB 894511 PREDNISONE Inactive TESSALON PERLES 100 MG CAP 1 to 2 tablets by mouth 3 times daily as needed for cough TESSALON PERLES 100 MG CAP 460122 BENZONATATE Inactive POTASSIUM CHLORIDE CR 10 MEQ CPCR 1 capsule by mouth daily 02/14 POTASSIUM CHLORIDE CR 10 MEQ CPCR POTASSIUM CHLORIDE Inactive NITROSTAT 0.4 MG SUBL 1 tab under tongueas needed for chest pain ( may take 3 total, 5 min apart, then call 911) NITROSTAT 0.4 MG SUBL 644047 NITROGLYCERIN Inactive LOVASTATIN 40 MG TABS 1 pill by mouth nightly for cholesterol LOVASTATIN 40 MG TABS 585471 LOVASTATIN Inactive CEFDINIR 300 MG ORAL CAPS take 1 cap po bid x 10 days CEFDINIR 300 MG ORAL CAPS 20021018 CEFDINIR Inactive ACEBUTOLOL HCL 200 MG CAPS 1 cap in the morning and 2 caps in the evening ACEBUTOLOL HCL 200 MG CAPS 842014 ACEBUTOLOL HCL Inactive VENTOLIN HFA 108 (90 BASE) MCG/ACT AERS 2 -4 puffs four times a day PRN 2013 VENTOLIN HFA 108 (90 BASE) MCG/ACT AERS ALBUTEROL SULFATE Inactive LEVAQUIN 500 MG ORAL TABS Take 1 tab po daily x 8 days LEVAQUIN 500 MG ORAL TABS 920046 LEVOFLOXACIN Inactive PREDNISONE 20 MG TAB 2 tabs daily for 4 days, 1 tab daily for 4 days, 1/2 tab daily for 4 days PREDNISONE 20 MG TAB 930590 PREDNISONE Inactive LOVASTATIN 40 MG ORAL TABS Take 1 tab po every hs LOVASTATIN 40 MG ORAL TABS 897216 LOVASTATIN Inactive DILAUDID 2 MG ORAL TABS Take 1/2 tab po every 4 hours as needed for pain 2014 DILAUDID 2 MG ORAL TABS 661683 HYDROMORPHONE HCL Inactive AMITRIPTYLINE HCL 25 MG ORAL TABS 1 q hs prn AMITRIPTYLINE HCL 25 MG ORAL TABS 075912 AMITRIPTYLINE HCL Inactive MECLIZINE HCL 25 MG TAB 1 tablet three times daily for 3 days, then 1/2 tab three times daily for 3 days. MECLIZINE HCL 25 MG TAB 724696 MECLIZINE HCL Inactive AMLODIPINE BESYLATE 5 MG ORAL TABS Take 1 tab po daily AMLODIPINE BESYLATE 5 MG ORAL TABS 194332 AMLODIPINE BESYLATE Inactive TOPIRAMATE 25 MG TABS 1 tab po BID TOPIRAMATE 25 MG TABS 324781 TOPIRAMATE Inactive PREDNISONE 20 MG TAB 1 tablet twice daily for 2 days, then 1 tablet once daily for 2 days PREDNISONE 20 MG TAB 159777 PREDNISONE Inactive PREDNISONE 20 MG TAB 1 tab twice daily for 3 day, then one daily for three days PREDNISONE 20 MG TAB 438785 PREDNISONE Inactive NIFEDIPINE ER 30 MG ORAL [id number] 1 daily NIFEDIPINE ER 30 MG ORAL [id number] NIFEDIPINE Inactive AZITHROMYCIN 250 MG TABS 2 po qd x 1 day, then 1 po qd x 4 days AZITHROMYCIN 250 MG TABS 2389831 AZITHROMYCIN Inactive AZITHROMYCIN 250 MG TABS 2 po qd x 1 day, then 1 po qd x 4 days AZITHROMYCIN 250 MG TABS 2300513 AZITHROMYCIN Inactive PREDNISONE 20 MG TAB 2 po qd x 5 days PREDNISONE 20 MG TAB 159191 PREDNISONE Inactive Vital Signs Date Name Value [...] Panel - Chemistry sodium, serum 137 mmol/L 595-276 5059/01/03 potassium, serum 3.4 mmol/L 3.5-5.2 chloride, serum [...] Magnesium - Chemistry cholesterol, serum 180 mg/dL 731-172 2094/08/08 triglyceride, serum, fasting 92 mg/dL 30-200 HDL cholesterol, serum 66 mg/dL 32-96 LDL cholesterol, serum 96 mg/dL 0-130 sodium, serum 142 mmol/L 850-053 4675/08/08 carbon dioxide, venous blood 27.4 mmol/L 21.0-32.0 [...] 10.0-20.0 Encounters Code Encounter Date Provider Facility CPT-95940 Level 3 Est. Patient 09:58:58 CDT Harinder Hernandez [facility] CPT-36979 Level 3 Est. Patient 12:37:21 CDT Harinder Hernandez [facility] CPT-77686 Level 3 Est. Patient 18:37:17 CDT Harinder Hernandez [facility] CPT-25101 Level 4 Est. Patient 11:15:54 CDT Nettie Newberry [facility] CPT-12030 Level 3 Est. Patient 16:42:24 CDT Harinder Cr [facility] CPT-28031 Level 3 Est. Patient 15:03:36 CDT Harinder Hernandez [facility] CPT-07906 Level 3 Est. Patient 15:03:20 CDT Harinder Hernandez [facility] CPT-07965 Level 3 Est. Patient 12:14:34 CDT Harinder Hernandez [facility] CPT-55291 Level 3 Est. Patient 13:47:15 CDT Harinder Hernandez [facility] CPT-72063 Level 3 Est. Patient 14:08:24 CDT Harinder Hernandez [facility] CPT-83358 Level 3 Est. Patient 10:07:15 CDT Harinder Hernandez [facility] CPT-64546 Level 3 Est. Patient 10:06:59 CDT Harinder Hernandez [facility] CPT-02160 Level 3 Est. Patient 15:53:29 CDT Jae Morgan MD [facility] CPT-68314 Level 3 Est. Patient 17:19:04 CDT Harinder Hernandez [facility] CPT-81992 Level 3 Est. Patient 11:13:01 CDT Harinder Hernandez [facility] CPT-11528 Level 3 Est. Patient 09:03:58 CDT Harinder Hernandez [facility] CPT-93103 Level 3 Est. Patient 14:46:45 PRIVATE ADVISOR Harinder Hernandez [facility] CPT-22587 Level 3 Est. Patient 09:35:49 PRIVATE ADVISOR Harinder Hernandez [facility] CPT-36646 Level 3 Est. Patient 09:29:37 PRIVATE ADVISOR Harinder Hernandez [facility] CPT-52580 Level 3 Est. Patient 15:51:07 CDT Harinder Hernandez [facility] CPT-87255 Level 3 Est. Patient 18:13:13 CDT Harinder Shaye Hernandez [facility] CPT-86942 Level 3 Est. Patient 10:44:19 CDT Harinder Hernandez [facility] CPT-10651 Level 4 Est. Patient 10:07:19 PRIVATE ADVISOR Harinder Hernandez [facility] CPT-04674 Level 3 Est. Patient 15:59:32 PRIVATE ADVISOR Harinder Hernandez [facility] Procedures Code Procedure Name Date Entry Date Standard Description CPT-39952 BMP - LAB USE ONLY 16:45:09 PRIVATE ADVISOR CPT-11738 Port a cath flush 12:00:13 PRIVATE ADVISOR CPT-TCMM Transitional Care Mgmt-Moderate 11:20:16 PRIVATE ADVISOR CPT-25671 First Vx - Ix admin for Medicare patients 17:35:15 CDT CPT-50633 Fluzone Preservative Free Intramuscular Suspension 17:35 :15 CDT CPT-88489 Microalbumin - LAB USE ONLY 11:52:05 CDT CPT-TCMM Transitional Care Mgmt-Moderate 11:33:57 CDT CPT-59684 No Charge Offi Visit 14:11:29 CDT CPT-93635 Magnesium - LAB USE ONLY 10:45:44 CDT CPT-24805 Lipid - LAB USE ONLY 10:45:44 CDT CPT-30841 CBC - LAB USE ONLY 10:45:44 CDT CPT-64393 Venipuncture Draw Fee 10:45:43 CDT CPT-64778 Venipuncture Draw Fee 18:21:27 CDT CPT-JTINJ Asp/Joint Injection 18:38:04 CDT CPT-70819 Immunization Each Additional Inj 17:38:04 CDT CPT-53033 Immunization Single Admin 17:38:04 CDT CPT-88143 Prevnar 13 17:38:04 CDT CPT-82384 Fluzone Quadrivalent preservative free (>=3yrs.) 17:38: 04 CDT CPT-22953 No Charge Offi Visit 11:14:03 CDT CPT-84640 Chest 2V Frontal and Lat 14:00:18 CDT CPT-OV Office Visit 16:10:28 CDT CPT-JTINJ Asp/Joint Injection 09:03:57 CDT CPT-Cryo Cryotherapy 09:35:49 PRIVATE ADVISOR CPT-JTINJ Asp/Joint Injection 09:34:45 PRIVATE ADVISOR CPT-J2930 Solu Medrol 125 mg (Methyl Prednisolone Sodium Succinate) 20:37:27 CDT CPT-75875 Abx/Therapy Injection 20:37:27 CDT CPT-56856 Port a cath flush 08:15:51 CDT CPT-35791 Port a cath flush 09:54:16 CDT CPT-57581 Port a cath flush 09:38:02 CDT CPT-54240 Port a cath flush 11:00:27 PRIVATE ADVISOR
--- OUTSIDE RECORDS SUMMARY | 2017-12-29 04:22 | XMS REPORT | Clinical Summary ---
[...] Harinder Shaye Hernandez DO Pain in limb Breast mass, right ICD-611.72 Inactive Harinder Hernandez Encounter for fitting and adjustment of vascular catheter ICD-V58.81 Inactive Harinder Hernandez Back pain, lumbar ICD-724.2 Inactive Harinder Hernandez Insomnia ICD-780.52 Inactive Harinder Hernandez DO Sacroiliitis, right ICD-720.2 Inactive Harinder Hernandez Biceps tendinitis, left ICD-726.12 Inactive Harinder Hernandez DO Diarrhea ICD-787.91 Inactive Jae Morgan MD Benign positional vertigo ICD-386.11 [address] David PINO Colon cancer screening ICD-V76.51 Inactive Harinder Hernandez Screening for malignant neoplasm, colon ICD-V76.51 Inactive Harinder Shaye David PINO Pneumonia ICD-486 Inactive Harinder Hernandez DO Bacteremia [...] tab po q day therafter. POTASSIUM CHLORIDE 10033996247 Active Kortney Mccain Active POTASSIUM CHLORIDE CR 10 MEQ CPCR 1 capsule BID POTASSIUM CHLORIDE 96769215993 No Longer Active Kortney Mccain Active LASIX 20 MG TAB 1 tablet by mouth every morning FUROSEMIDE 44925408956 No Longer Active Kortney Mccain Active SPIRONOLACTONE 25 MG TAB 1 tablet by mouth daily SPIRONOLACTONE 38269424201 Active Ciera Pimentel Active FLUOXETINE HCL 10 MG ORAL CAPS 1 po qd for depression/anxiety FLUOXETINE HCL 42832276541 Active Harinder Hernandez DO Active VOLTAREN 1 % GEL apply q 6-8 hour to left arm as needed for pain DICLOFENAC SODIUM 97885739283 Active Harinder Hernandez DO Active ALBUTEROL SULFATE 0.083 % NEBU SOLN 1 vial neb q 4hrs for severe asthma. 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 FLUTICASONE PROPIONATE HFA 22412071487 Active Harinder Hernandez DO Active EPIPEN 2-BRUNA 0.3 MG/0.3ML INJ SOAJ 1 INJ NEEDED EPINEPHRINE 91165319291 Active Harinder Hernandez DO Active PREDNISONE 20 MG TAB 1 tab twice daily for 3 day, then one daily for three days PREDNISONE 02160242294 No Longer Active Harinder Hernandez DO Active PREDNISONE 20 MG TAB 1 tablet twice daily for 2 days, then 1 tablet once daily for 2 days PREDNISONE 47573459870 No Longer Active Harinder Hernandez DO Active ASMANEX 120 METERED DOSES 220 MCG/INH INH AEPB 2 puffs orally twice daily MOMETASONE FUROATE 42989471521 Active Jeri Sosa LPN Active TOPIRAMATE 25 MG TABS 1 tab po BID TOPIRAMATE 87088333743 No Longer Active Nettie Newberry APRN Active AMLODIPINE BESYLATE 5 MG ORAL TABS Take 1 tab po daily AMLODIPINE BESYLATE 24310110184 No Longer Active eNttie Newberry APRN Active MECLIZINE HCL 25 MG TAB 1 tablet three times daily for 3 days, then 1/2 tab three times daily for 3 days. MECLIZINE HCL 96635542065 No Longer Active Nettie Newberry MAHENDRA Active AMITRIPTYLINE HCL 25 MG ORAL TABS 1 q hs prn AMITRIPTYLINE HCL 54240907687 No Longer Active Nettieog Newberry APRN Active DILAUDID 2 MG ORAL TABS Take 1/2 tab po every 4 hours as needed for pain 2014 HYDROMORPHONE HCL 99231267375 No Longer Active Nettie Newberry APRN Active CLOPIDOGREL BISULFATE 75 MG ORAL TABS 1 tab by mouth once daily CLOPIDOGREL BISULFATE 18116670592 Active Harinder Hernandez DO Active ATORVASTATIN CALCIUM 10 MG ORAL TABS 1 at bedtime ATORVASTATIN CALCIUM 69344477984 Active Tawnya Pardo MA Active LOVASTATIN 40 MG ORAL TABS Take 1 tab po every hs LOVASTATIN 78073631070 No Longer Active Harinder Hernandez DO Active PREDNISONE 20 MG TAB 2 tabs daily for 4 days, 1 tab daily for 4 days, 1/2 tab daily for 4 days PREDNISONE 94566018551 No Longer Active Harinder Hernandez DO Active LEVAQUIN 500 MG ORAL TABS Take 1 tab po daily x 8 days LEVOFLOXACIN 93354513059 No Longer Active Harinder Hernandez DO Active VENTOLIN HFA 108 (90 BASE) MCG/ACT AERS 2 -4 puffs four times a day PRN 2013 ALBUTEROL SULFATE 53105954874 No Longer Active Jeri Sosa LPN Active ACEBUTOLOL HCL 200 MG CAPS 1 cap in the morning and 2 caps in the evening ACEBUTOLOL HCL 10642285881 No Longer Active Harinder Hernandez DO Active CEFDINIR 300 MG ORAL CAPS take 1 cap po bid x 10 days CEFDINIR 75606478043 No Longer Active Harinder Hernandez DO Active LOVASTATIN 40 MG TABS 1 pill by mouth nightly for cholesterol LOVASTATIN 23926809780 No Longer Active Nettie Newberry MAHENDRA Active NITROSTAT 0.4 MG SUBL 1 tab under tongueas needed for chest pain ( may take 3 total, 5 min apart, then call 911) NITROGLYCERIN 21776386754 No Longer Active Nettie Newberry MAHENDRA Active POTASSIUM CHLORIDE CR 10 MEQ CPCR 1 capsule by mouth daily 02/14 POTASSIUM CHLORIDE 06938409945 [facility] TESSALON PERLES 100 MG CAP 1 to 2 tablets by mouth 3 times daily as needed for cough BENZONATATE 48468182843 No Longer Active Nettie Newberry MAHENDRA Active THEOPHYLLINE ER 200 MG ORAL [id number] Take 1 tab every 12 hours THEOPHYLLINE 50601668389 Active Harinder Hernandez DO Active PREDNISONE 20 MG TAB 2 po qd x 5 days PREDNISONE 29737376968 No Longer Active Jae Morgan MD Active AZITHROMYCIN 250 MG TABS 2 po qd x 1 day, then 1 po qd x 4 days AZITHROMYCIN 81842362065 No Longer Active Jae Morgan MD Active PREDNISONE 20 MG TAB 1 tab twice daily for 3 day, then one daily for three days PREDNISONE 58512823833 No Longer Active Jae Morgan MD Active SINGULAIR 10 MG TABS 1 pill by mouth every evening for breathing. MONTELUKAST SODIUM 25387344634 Active Tawnya Pardo MA Active TYLENOL 325 MG TAB 3 by mouth q4h as needed ACETAMINOPHEN 98066016535 Active Harinder Hernandez DO Active POTASSIUM CHLORIDE ER 10 MEQ CR-TABS take 1 tab po daily POTASSIUM CHLORIDE 12434563074 No Longer Active Harinder Hernandez DO Active PREDNISONE 20 MG TAB 1 TID x 2 days, then 1 BID x 3 days, then 1 Daily x 3 days, then stop PREDNISONE 07489446754 No Longer Active John Montemayor APRN Active LEVAQUIN 500 MG TAB 1 tablet by mouth daily LEVOFLOXACIN 55565106052 No Longer Active John Montemayor CRAB BUTCHER Active NEURONTIN 300 MG CAP 1 cap by mouth three times daily for restless leg 06/22 GABAPENTIN 79940056579 No Longer Active Harinder Hernandez DO Active BENZONATATE 100 MG CAPS 1 cap po TID PRN BENZONATATE 18656383118 No Longer Active Harinder Hernandez DO Active MONTELUKAST SODIUM 10 MG TABS 1 tab po in the evening MONTELUKAST SODIUM 43830777512 No Longer Active Harinder Hernandez DO Active MUPIROCIN 2 % OINT apply to affected area BID x 14 days MUPIROCIN 32005715168 No Longer Active Harinder Hernandez DO Active TYLENOL EXTRA STRENGTH 500 MG TABS as needed ACETAMINOPHEN 38529983469 No Longer Active Harinder Hernandez DO Active PREDNISONE 10 MG TABS 1 tab po daily PREDNISONE 60634207925 No Longer Active Harinder Hernandez DO Active PREDNISONE 20 MG TAB 2 tabs daily for 4 days, 1 tab daily for 4 days, 1/2 tab daily for 4 days PREDNISONE 41459040633 No Longer Active Harinder Hernandez DO Active AZITHROMYCIN 250 MG TABS 2 po qd x 1 day, then 1 po qd x 4 days AZITHROMYCIN 31284784786 No Longer Active Harinder Hernandez DO Active PREDNISONE 20 MG TAB 3 tabs today, then 1 tab twice daily for 3 day, then one daily for three days PREDNISONE 87264214708 No Longer Active Harinder Hernandez DO Active NIFEDIAC CC 30 MG [id number] 1 tablet daily for raynaud's syndrome NIFEDIPINE 53915212570 No Longer Active Tawnya Pardo MA Active AMBIEN 10 MG TAB 1/2 tab by mouth at bedtime as needed for sleep ZOLPIDEM TARTRATE 92094281163 Active Harinder Hernandez DO Active CLONAZEPAM 1 MG TABS 1 tablet at bedtime for insomnia and restless legs 09/14 CLONAZEPAM 93310681808 Active Harinder Hernandez DO Active CLONAZEPAM 0.5 MG TABS 1 tab po daily CLONAZEPAM 91224693717 No Longer Active Harinder Hernandez DO Active PREDNISONE 10 MG TAB 1 tablet daily for COPD PREDNISONE 24164978038 Active Harinder Hernandez DO Active PROAIR HFA 108 (90 BASE) MCG/ACT AERS 2 puffs four times a day as needed 2012 ALBUTEROL SULFATE 69419264747 Active Harinder Hernandez DO Active FLOVENT HFA 110 MCG/ACT AERO 2 puffs inhaled b.i.d. FLUTICASONE PROPIONATE HFA 43006450722 Active Kortney Mccain Active ACIPHEX 20 MG TBEC 1 tab po daily RABEPRAZOLE SODIUM 36780037249 Active Kaylah Newberry Active CLONAZEPAM 0.5 MG TABS 1 tab po daily CLONAZEPAM 0.5 MG TABS 208668 CLONAZEPAM Inactive PREDNISONE 20 MG TAB 3 tabs today, then 1 tab twice daily for 3 day, then one daily for three days PREDNISONE 20 MG TAB 662465 PREDNISONE Inactive PREDNISONE 20 MG TAB 2 tabs daily for 4 days, 1 tab daily for 4 days, 1/2 tab daily for 4 days PREDNISONE 20 MG TAB 861969 PREDNISONE Inactive PREDNISONE 10 MG TABS 1 tab po daily PREDNISONE 10 MG TABS 742359 PREDNISONE Inactive TYLENOL EXTRA STRENGTH 500 MG TABS as needed TYLENOL EXTRA STRENGTH 500 MG TABS 571934 ACETAMINOPHEN Inactive MUPIROCIN 2 % OINT apply to affected area BID x 14 days MUPIROCIN 2 % OINT 737005 MUPIROCIN Inactive MONTELUKAST SODIUM 10 MG TABS 1 tab po in the evening MONTELUKAST SODIUM 10 MG TABS 20010818 MONTELUKAST SODIUM Inactive BENZONATATE 100 MG CAPS 1 cap po TID PRN BENZONATATE 100 MG CAPS 259973 BENZONATATE Inactive NEURONTIN 300 MG CAP 1 cap by mouth three times daily for restless leg 06/22 NEURONTIN 300 MG CAP 592770 GABAPENTIN Inactive LEVAQUIN 500 MG TAB 1 tablet by mouth daily LEVAQUIN 500 MG TAB 875845 LEVOFLOXACIN Inactive PREDNISONE 20 MG TAB 1 TID x 2 days, then 1 BID x 3 days, then 1 Daily x 3 days, then stop PREDNISONE 20 MG TAB 782589 PREDNISONE Inactive POTASSIUM CHLORIDE ER 10 MEQ CR-TABS take 1 tab po daily POTASSIUM CHLORIDE ER 10 MEQ CR-TABS POTASSIUM CHLORIDE Inactive PREDNISONE 20 MG TAB 1 tab twice daily for 3 day, then one daily for three days PREDNISONE 20 MG TAB 633840 PREDNISONE Inactive TESSALON PERLES 100 MG CAP 1 to 2 tablets by mouth 3 times daily as needed for cough TESSALON PERLES 100 MG CAP 103183 BENZONATATE Inactive POTASSIUM CHLORIDE CR 10 MEQ CPCR 1 capsule by mouth daily 02/14 POTASSIUM CHLORIDE CR 10 MEQ CPCR POTASSIUM CHLORIDE Inactive NITROSTAT 0.4 MG SUBL 1 tab under tongueas needed for chest pain ( may take 3 total, 5 min apart, then call 911) NITROSTAT 0.4 MG SUBL 740706 NITROGLYCERIN Inactive LOVASTATIN 40 MG TABS 1 pill by mouth nightly for cholesterol LOVASTATIN 40 MG TABS 738923 LOVASTATIN Inactive CEFDINIR 300 MG ORAL CAPS take 1 cap po bid x 10 days CEFDINIR 300 MG ORAL CAPS 770055 CEFDINIR Inactive ACEBUTOLOL HCL 200 MG CAPS 1 cap in the morning and 2 caps in the evening ACEBUTOLOL HCL 200 MG CAPS 122490 ACEBUTOLOL HCL Inactive VENTOLIN HFA 108 (90 BASE) MCG/ACT AERS 2 -4 puffs four times a day PRN 2013 VENTOLIN HFA 108 (90 BASE) MCG/ACT AERS ALBUTEROL SULFATE Inactive LEVAQUIN 500 MG ORAL TABS Take 1 tab po daily x 8 days LEVAQUIN 500 MG ORAL TABS 812634 LEVOFLOXACIN Inactive PREDNISONE 20 MG TAB 2 tabs daily for 4 days, 1 tab daily for 4 days, 1/2 tab daily for 4 days PREDNISONE 20 MG TAB 650323 PREDNISONE Inactive LOVASTATIN 40 MG ORAL TABS Take 1 tab po every hs LOVASTATIN 40 MG ORAL TABS 394989 LOVASTATIN Inactive DILAUDID 2 MG ORAL TABS Take 1/2 tab po every 4 hours as needed for pain 2014 DILAUDID 2 MG ORAL TABS 447892 HYDROMORPHONE HCL Inactive AMITRIPTYLINE HCL 25 MG ORAL TABS 1 q hs prn AMITRIPTYLINE HCL 25 MG ORAL TABS 523260 AMITRIPTYLINE HCL Inactive MECLIZINE HCL 25 MG TAB 1 tablet three times daily for 3 days, then 1/2 tab three times daily for 3 days. MECLIZINE HCL 25 MG TAB 201283 MECLIZINE HCL Inactive AMLODIPINE BESYLATE 5 MG ORAL TABS Take 1 tab po daily AMLODIPINE BESYLATE 5 MG ORAL TABS 254731 AMLODIPINE BESYLATE Inactive TOPIRAMATE 25 MG TABS 1 tab po BID TOPIRAMATE 25 MG TABS 219244 TOPIRAMATE Inactive PREDNISONE 20 MG TAB 1 tablet twice daily for 2 days, then 1 tablet once daily for 2 days PREDNISONE 20 MG TAB 251632 PREDNISONE Inactive PREDNISONE 20 MG TAB 1 tab twice daily for 3 day, then one daily for three days PREDNISONE 20 MG TAB 365242 PREDNISONE Inactive NIFEDIPINE ER 30 MG ORAL [id number] 1 daily NIFEDIPINE ER 30 MG ORAL [id number] NIFEDIPINE Inactive AMLODIPINE BESYLATE 5 MG TABS 1 tablet by mouth daily AMLODIPINE BESYLATE 5 MG TABS 768265 AMLODIPINE BESYLATE Inactive LASIX 20 MG TAB 1 tablet by mouth every morning LASIX 20 MG TAB 150397 FUROSEMIDE Inactive POTASSIUM CHLORIDE CR 10 MEQ CPCR 1 capsule BID POTASSIUM CHLORIDE CR 10 MEQ CPCR POTASSIUM CHLORIDE Inactive AZITHROMYCIN 250 MG TABS 2 po qd x 1 day, then 1 po qd x 4 days AZITHROMYCIN 250 MG TABS 6912803 AZITHROMYCIN Inactive AZITHROMYCIN 250 MG TABS 2 po qd x 1 day, then 1 po qd x 4 days AZITHROMYCIN 250 MG TABS 4277485 AZITHROMYCIN Inactive PREDNISONE 20 MG TAB 2 po qd x 5 days PREDNISONE 20 MG TAB 919597 PREDNISONE Inactive Vital Signs Date Name Value [...] Panel - Chemistry sodium, serum 137 mmol/L 951-567 1475/01/03 potassium, serum 3.4 mmol/L 3.5-5.2 chloride, serum 102 mmol/L 98-107 carbon dioxide, venous blood 29.2 mmol/L 21.0-32.0 blood glucose 87 mg/dL 65-110 calcium, serum 8.5 mg/dL 8.5-10.1 urea nitrogen, blood 8 mg/dL 7-18 creatinine, serum 0.82 mg/dL 0.55-1.30 sodium, serum 140 mmol/L 004-195 7631/07/13 potassium, serum 3.2 mmol/L 3.5-5.2 chloride, serum [...] ... - Chemistry sodium, serum 141 mmol/L 432-879 9544/08/07 carbon dioxide, venous blood 34.0 mmol/L 21.0-32.0 [...] 0-19 Encounters Code Encounter Date Provider Facility CPT-97181 Level 4 Est. Patient 14:45:25 CDT Harinder Cr [facility] CPT-25723 Level 4 Est. Patient 09:15:13 CDT Harinder Cr [facility] CPT-65686 Level 3 Est. Patient 11:51:58 CDT Harinder Cr [facility] CPT-51419 Level 3 Est. Patient 11:30:05 CDT Harinder Cr [facility] CPT-20519 Level 4 Est. Patient 10:19:23 CDT Harinder Cr [facility] CPT-65438 Level 3 Est. Patient 09:58:58 CDT Harinder Cr [facility] CPT-11630 Level 3 Est. Patient 12:37:21 CDT Harinder Cr [facility] CPT-19483 Level 3 Est. Patient 18:37:17 CDT Harinder Cr [facility] CPT-04778 Level 4 Est. Patient 11:15:54 CDT Nettie Rohith [facility] CPT-78661 Level 3 Est. Patient 16:42:24 CDT Harinder Cr [facility] CPT-61746 Level 3 Est. Patient 15:03:36 CDT Harinder Cr [facility] CPT-35318 Level 3 Est. Patient 15:03:20 CDT Harinder Cr [facility] CPT-15011 Level 3 Est. Patient 12:14:34 CDT Harinder Cr [facility] CPT-87029 Level 3 Est. Patient 13:47:15 CDT Harinder Cr [facility] CPT-68748 Level 3 Est. Patient 14:08:24 CDT Harinder Shaye [facility] CPT-03502 Level 3 Est. Patient 10:07:15 CDT Harinder Cr [facility] CPT-28758 Level 3 Est. Patient 10:06:59 CDT Harinder Hernandez [facility] CPT-92110 Level 3 Est. Patient 15:53:29 CDT Jae Morgan MD [facility] CPT-39585 Level 3 Est. Patient 17:19:04 CDT Harinder Shaye David [facility] CPT-07733 Level 3 Est. Patient 11:13:01 CDT Harinder Hernandez [facility] CPT-99070 Level 3 Est. Patient 09:03:58 CDT Harinder Hernandez [facility] CPT-55359 Level 3 Est. Patient 14:46:45 BEHAVIORAL HEALTH ASSISTANT Harinder Hernandez [facility] CPT-91313 Level 3 Est. Patient 09:35:49 BEHAVIORAL HEALTH ASSISTANT Harinder Cr David [facility] CPT-35996 Level 3 Est. Patient 09:29:37 BEHAVIORAL HEALTH ASSISTANT Harinder Hernandez [facility] CPT-46019 Level 3 Est. Patient 15:51:07 CDT Harinder Cr [facility] CPT-65945 Level 3 Est. Patient 18:13:13 CDT Harinder Hernandez [facility] CPT-85444 Level 3 Est. Patient 10:44:19 CDT Harinder Cr [facility] CPT-86317 Level 4 Est. Patient 10:07:19 BEHAVIORAL HEALTH ASSISTANT Harinder Hernandez [facility] CPT-30792 Level 3 Est. Patient 15:59:32 BEHAVIORAL HEALTH ASSISTANT Harinder Cr [facility] Procedures Code Procedure Name Date Entry Date Standard Description CPT-36916 Abd compl w upright - XRAY USE ONLY 14:48:09 CDT 02/18 CPT-15682 Port a cath flush 13:46:05 CDT CPT-40171 Hip, complete, 2-3 views - XRAY USE ONLY 10:28:40 CDT CPT-52286 BMP - LAB USE ONLY 16:45:09 BEHAVIORAL HEALTH ASSISTANT CPT-85895 Port a cath flush 12:00:13 BEHAVIORAL HEALTH ASSISTANT CPT-TCMM Transitional Care Mgmt-Moderate 11:20:16 BEHAVIORAL HEALTH ASSISTANT CPT-20791 First Vx - Ix admin for Medicare patients 17:35:15 CDT CPT-07164 Fluzone Preservative Free Intramuscular Suspension 17:35 :15 CDT CPT-90160 Microalbumin - LAB USE ONLY 11:52:05 CDT CPT-TCMM Transitional Care Mgmt-Moderate 11:33:57 CDT CPT-77322 No Charge Offi Visit 14:11:29 CDT CPT-22710 Magnesium - LAB USE ONLY 10:45:44 CDT CPT-75030 Lipid - LAB USE ONLY 10:45:44 CDT CPT-14635 CBC - LAB USE ONLY 10:45:44 CDT CPT-71934 Venipuncture Draw Fee 10:45:43 CDT CPT-17366 Venipuncture Draw Fee 18:21:27 CDT CPT-JTINJ Asp/Joint Injection 18:38:04 CDT CPT-25697 Immunization Each Additional Inj 17:38:04 CDT CPT-41786 Immunization Single Admin 17:38:04 CDT CPT-13406 Prevnar 13 17:38:04 CDT CPT-42217 Fluzone Quadrivalent preservative free (>=3yrs.) 17:38: 04 CDT CPT-85106 No Charge Offi Visit 11:14:03 CDT CPT-73871 Chest 2V Frontal and Lat 14:00:18 CDT CPT-OV Office Visit 16:10:28 CDT CPT-JTINJ Asp/Joint Injection 09:03:57 CDT CPT-Cryo Cryotherapy 09:35:49 BEHAVIORAL HEALTH ASSISTANT CPT-JTINJ Asp/Joint Injection 09:34:45 BEHAVIORAL HEALTH ASSISTANT CPT-J2930 Solu Medrol 125 mg (Methyl Prednisolone Sodium Succinate) 20:37:27 CDT CPT-94002 Abx/Therapy Injection 20:37:27 CDT CPT-08053 Port a cath flush 08:15:51 CDT CPT-16453 Port a cath flush 09:54:16 CDT CPT-47595 Port a cath flush 09:38:02 CDT CPT-09421 Port a cath flush 11:00:27 BEHAVIORAL HEALTH ASSISTANT
--- OUTSIDE RECORDS SUMMARY | 2017-12-29 04:24 | XMS REPORT | Clinical Summary ---
Author Author Admin, QIE Organization [facility] Address Unknown Phone Unavailable Allergies, [...] for malignant neoplasm, colon V76.51 Resolved Harinder Hernandze DO Screening for malignant neoplasms of colon [...] DO Dysthymic disorder Abdominal pain 789.00 Resolved Jrei Lariosibe Abdominal pain, unspecified site Right leg [...] TABLET 1 tablet by mouth daily SPIRONOLACTONE 53083624514 No Longer Active Jeri Nieto Active PREDNISONE 20 MG ORAL TABLET 2 tablets by mouth today, then 1 tablet by mouth days 2-3 PREDNISONE 42020250434 No Longer Active Jeri Nieto Active NITROSTAT 0.4 MG SUBLINGUAL TABLET SUBLINGUAL 1 tab SL q5min PRN chest pain NITROGLYCERIN 32223096590 Active Meenu Alejo LPN Active THEOPHYLLINE ER 300 MG ORAL TABLET EXTENDED RELEASE 12 HOUR 1 po BID THEOPHYLLINE 79767036371 Active Kortney Mccain Active POTASSIUM CHLORIDE ER 20 MEQ ORAL TABLET EXTENDED RELEASE 1 po q day POTASSIUM CHLORIDE 70870188873 Active Kortney Mccain Active POTASSIUM CHLORIDE 20 MEQ ORAL PACKET 1 tab po q day POTASSIUM CHLORIDE 32737271461 No Longer Active Kortney Mccain Active POTASSIUM CHLORIDE ER 10 MEQ ORAL CAPSULE EXTENDED RELEASE 1 capsule BID 2016 POTASSIUM CHLORIDE 77903677404 No Longer Active Kortney Mccain Active LASIX 20 MG ORAL TABLET 1 tablet by mouth every morning FUROSEMIDE 41818273204 No Longer Active Kortney Mccain Active FLUOXETINE HCL 10 MG ORAL CAPSULE 1 po qd for depression/anxiety FLUOXETINE HCL 05727112919 Active Meenu Alejo LPN Active VOLTAREN 1 % TRANSDERMAL GEL apply q 6-8 hour to left arm as needed for pain DICLOFENAC SODIUM 71636974610 Active Kortney Mccain Active ALBUTEROL SULFATE (2.5 MG/3ML) 0.083% INHALATION NEBULIZATION SOLUTION 1 vial neb q 4hrs for severe asthma. 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 NIFEDIPINE 63505270159 Active Kortney Mccain Active AMLODIPINE BESYLATE 5 MG ORAL TABLET 1 tablet by mouth daily 2016 AMLODIPINE BESYLATE 03566759673 No Longer Active Harinder Hernandez DO Active TOPAMAX 25 MG ORAL TABLET 1 tab po BID TOPIRAMATE 15573935371 Active Kortney Mccain Active FLUTICASONE PROPIONATE 50 MCG/ACT NASAL SUSPENSION 2 sprays per nostril daily PRN Allergies FLUTICASONE PROPIONATE 49957207763 Active Meenu Alejo LPN Active NIFEDIPINE ER 30 MG ORAL TABLET EXTENDED RELEASE 24 HOUR 1 daily NIFEDIPINE 15752824048 No Longer Active Harinder Hernandez DO Active FLOVENT HFA 110 MCG/ACT INHALATION AEROSOL 2 puffs inhaled b.i.d. FLUTICASONE PROPIONATE HFA 96475875519 Active Harinder Hernandez DO Active EPIPEN 2-BRUNA 0.3 MG/0.3ML INJECTION SOLUTION AUTO-INJECTOR 1 INJ NEEDED EPINEPHRINE 45803286760 Active Meenu Alejo LPN Active PREDNISONE 20 MG ORAL TABLET 1 tab twice daily for 3 day, then one daily for three days PREDNISONE 22169507775 No Longer Active Harinder Hernandez DO Active PREDNISONE 20 MG ORAL TABLET 1 tablet twice daily for 2 days, then 1 tablet once daily for 2 days PREDNISONE 41131412783 No Longer Active Harinder Hernandez DO Active ASMANEX 120 METERED DOSES 220 MCG/INH INHALATION AEROSOL POWDER BREATH ACTIVATED 2 puffs orally twice daily MOMETASONE FUROATE 43129804351 Active Jeri Sosa LPN Active TOPIRAMATE 25 MG ORAL TABLET 1 tab po BID TOPIRAMATE 25658991403 No Longer Active Nettie Newberry APRN Active AMLODIPINE BESYLATE 5 MG ORAL TABLET Take 1 tab po daily AMLODIPINE BESYLATE 06373229240 No Longer Active Nettie Newberry APRN Active MECLIZINE HCL 25 MG ORAL TABLET 1 tablet three times daily for 3 days, then 1/ 2 tab three times daily for 3 days. MECLIZINE HCL 58622271496 No Longer Active Nettie Newberry APRN Active AMITRIPTYLINE HCL 25 MG ORAL TABLET 1 q hs prn AMITRIPTYLINE HCL 18791879741 No Longer Active Nettie Newberry APRN Active DILAUDID 2 MG ORAL TABLET Take 1/2 tab po every 4 hours as needed for pain HYDROMORPHONE HCL 15245000368 No Longer Active Nettie Newberry APRN Active CLOPIDOGREL BISULFATE 75 MG ORAL TABLET 1 tab by mouth once daily CLOPIDOGREL BISULFATE 10243311786 Active Meenu Alejo LPN Active ATORVASTATIN CALCIUM 10 MG ORAL TABLET 1 at bedtime ATORVASTATIN CALCIUM 20117617532 Active Kortney Mccain Active LOVASTATIN 40 MG ORAL TABLET Take 1 tab po every hs LOVASTATIN 77904973399 No Longer Active Harinder Hernandez DO Active PREDNISONE 20 MG ORAL TABLET 2 tabs daily for 4 days, 1 tab daily for 4 days, 1/2 tab daily for 4 days PREDNISONE 11465637775 No Longer Active Harinder Hernandez DO Active LEVAQUIN 500 MG ORAL TABLET Take 1 tab po daily x 8 days LEVOFLOXACIN 98562200490 No Longer Active Harinder Hernandez DO Active VENTOLIN HFA 108 (90 Base) MCG/ACT INHALATION AEROSOL SOLUTION 2 -4 puffs four times a day PRN ALBUTEROL SULFATE 37924875399 No Longer Active Jeri Sosa LPN Active ACEBUTOLOL HCL 200 MG ORAL CAPSULE 1 cap in the morning and 2 caps in the evening ACEBUTOLOL HCL 31770816265 No Longer Active Harinder Hernandez DO Active CEFDINIR 300 MG ORAL CAPSULE take 1 cap po bid x 10 days CEFDINIR 81301021338 No Longer Active Harinder Hernandez DO Active LOVASTATIN 40 MG ORAL TABLET 1 pill by mouth nightly for cholesterol LOVASTATIN 17575041734 No Longer Active Nettie Newberry APRN Active NITROSTAT 0.4 MG SUBLINGUAL TABLET SUBLINGUAL 1 tab under tongueas needed for chest pain ( may take 3 total, 5 min apart, then call 911) NITROGLYCERIN 69376659820 No Longer Active Nettie Newberry APRN Active POTASSIUM CHLORIDE ER 10 MEQ ORAL CAPSULE EXTENDED RELEASE 1 capsule by mouth daily POTASSIUM CHLORIDE 01393535258 No Longer Active Nettie Newberry APRN Active TESSALON PERLES 100 MG ORAL CAPSULE 1 to 2 tablets by mouth 3 times daily as needed for cough BENZONATATE 58536803265 No Longer Active Nettie Newberry APRN Active PREDNISONE 20 MG ORAL TABLET 2 po qd x 5 days PREDNISONE 88052141725 No Longer Active Jae Morgan MD Active AZITHROMYCIN 250 MG ORAL TABLET 2 po qd x 1 day, then 1 po qd x 4 days 12/30 AZITHROMYCIN 55606548836 No Longer Active Jae Morgan MD Active PREDNISONE 20 MG ORAL TABLET 1 tab twice daily for 3 day, then one daily for three days PREDNISONE 56663252367 No Longer Active Jae Morgan MD Active SINGULAIR 10 MG ORAL TABLET 1 pill by mouth every evening for breathing. 2014 MONTELUKAST SODIUM 73331472721 Active Meenu Alejo GENERAL OPERATIONS AGENT Active TYLENOL 325 MG ORAL TABLET 3 by mouth q4h as needed ACETAMINOPHEN 59220386381 Active Harinder Hernandez DO Active POTASSIUM CHLORIDE ER 10 MEQ ORAL TABLET EXTENDED RELEASE take 1 tab po daily POTASSIUM CHLORIDE 42421265162 No Longer Active Harinder Hernandez DO Active PREDNISONE 20 MG ORAL TABLET 1 TID x 2 days, then 1 BID x 3 days, then 1 Daily x 3 days, then stop PREDNISONE 52124281760 No Longer Active Jillina Fradankl IMPROVEMENT AUDITOR Active LEVAQUIN 500 MG ORAL TABLET 1 tablet by mouth daily LEVOFLOXACIN 21008758032 No Longer Active Jillina Frazell IMPROVEMENT AUDITOR Active NEURONTIN 300 MG ORAL CAPSULE 1 cap by mouth three times daily for restless leg GABAPENTIN 03304124371 No Longer Active Harinder Hernandez DO Active BENZONATATE 100 MG ORAL CAPSULE 1 cap po TID PRN BENZONATATE 59201814182 No Longer Active Harinder Hernandez DO Active MONTELUKAST SODIUM 10 MG ORAL TABLET 1 tab po in the evening 2014 MONTELUKAST SODIUM 95698295273 No Longer Active Harinder Hernandez DO Active MUPIROCIN 2 % EXTERNAL OINTMENT apply to affected area BID x 14 days MUPIROCIN 88394995957 No Longer Active Harinder Hernandez DO Active TYLENOL EXTRA STRENGTH 500 MG ORAL TABLET as needed ACETAMINOPHEN 09225148979 No Longer Active Harinder Hernandez DO Active PREDNISONE 10 MG ORAL TABLET 1 tab po daily PREDNISONE 70718572100 No Longer Active Harinder Hernandez DO Active PREDNISONE 20 MG ORAL TABLET 2 tabs daily for 4 days, 1 tab daily for 4 days, 1/2 tab daily for 4 days PREDNISONE 42288004300 No Longer Active Harinder Hernandez DO Active AZITHROMYCIN 250 MG ORAL TABLET 2 po qd x 1 day, then 1 po qd x 4 days 04/06 AZITHROMYCIN 66911656902 No Longer Active Harinder Hernandez DO Active PREDNISONE 20 MG ORAL TABLET 3 tabs today, then 1 tab twice daily for 3 day, then one daily for three days PREDNISONE 50730859855 No Longer Active Harinder Hernandez DO Active NIFEDIAC CC 30 MG ORAL TABLET EXTENDED RELEASE 24 HOUR 1 tablet daily for raynaud's syndrome NIFEDIPINE 17050379524 No Longer Active Tawnya Pardo MA Active AMBIEN 10 MG ORAL TABLET 1/2 tab by mouth at bedtime as needed for sleep 2013 ZOLPIDEM TARTRATE 40300068352 Active Meenu Alejo LPN Active CLONAZEPAM 1 MG ORAL TABLET 1 tablet at bedtime for insomnia and restless legs CLONAZEPAM 04327002870 Active Meenu Alejo LPN Active CLONAZEPAM 0.5 MG ORAL TABLET 1 tab po daily CLONAZEPAM 77082025785 No Longer Active Harinder Hernandez DO Active PREDNISONE 10 MG ORAL TABLET 1 tablet daily for COPD PREDNISONE 59708408848 Active Kortney Mccain Active PROAIR HFA 108 (90 Base) MCG/ACT INHALATION AEROSOL SOLUTION 2 puffs four times a day as needed ALBUTEROL SULFATE 54464258089 Active Harinder Hernandez DO Active FLOVENT HFA 110 MCG/ACT INHALATION AEROSOL 2 puffs inhaled b.i.d. FLUTICASONE PROPIONATE HFA 28844565881 Active Kortney Mccain Active ACIPHEX 20 MG ORAL TABLET DELAYED RELEASE 1 tab po daily RABEPRAZOLE SODIUM 67139683970 Active Meenu Alejo LPN Active CLONAZEPAM 0.5 MG ORAL TABLET 1 tab po daily CLONAZEPAM 0.5 MG ORAL TABLET 613755 CLONAZEPAM Inactive PREDNISONE 20 MG ORAL TABLET 3 tabs today, then 1 tab twice daily for 3 day, then one daily for three days PREDNISONE 20 MG ORAL TABLET 481772 PREDNISONE Inactive PREDNISONE 20 MG ORAL TABLET 2 tabs daily for 4 days, 1 tab daily for 4 days, 1/2 tab daily for 4 days PREDNISONE 20 MG ORAL TABLET 015663 PREDNISONE Inactive PREDNISONE 10 MG ORAL TABLET 1 tab po daily PREDNISONE 10 MG ORAL TABLET 585262 PREDNISONE Inactive TYLENOL EXTRA STRENGTH 500 MG ORAL TABLET as needed TYLENOL EXTRA STRENGTH 500 MG ORAL TABLET 190497 ACETAMINOPHEN Inactive MUPIROCIN 2 % EXTERNAL OINTMENT apply to affected area BID x 14 days MUPIROCIN 2 % EXTERNAL OINTMENT 777214 MUPIROCIN Inactive MONTELUKAST SODIUM 10 MG ORAL TABLET 1 tab po in the evening 2014 MONTELUKAST SODIUM 10 MG ORAL TABLET 494960 MONTELUKAST SODIUM Inactive BENZONATATE 100 MG ORAL CAPSULE 1 cap po TID PRN BENZONATATE 100 MG ORAL CAPSULE 689328 BENZONATATE Inactive NEURONTIN 300 MG ORAL CAPSULE 1 cap by mouth three times daily for restless leg NEURONTIN 300 MG ORAL CAPSULE 018437 GABAPENTIN Inactive LEVAQUIN 500 MG ORAL TABLET 1 tablet by mouth daily LEVAQUIN 500 MG ORAL TABLET 618409 LEVOFLOXACIN Inactive PREDNISONE 20 MG ORAL TABLET 1 TID x 2 days, then 1 BID x 3 days, then 1 Daily x 3 days, then stop PREDNISONE 20 MG ORAL TABLET 720412 PREDNISONE Inactive POTASSIUM CHLORIDE ER 10 MEQ ORAL TABLET EXTENDED RELEASE take 1 tab po daily POTASSIUM CHLORIDE ER 10 MEQ ORAL TABLET EXTENDED RELEASE POTASSIUM CHLORIDE Inactive PREDNISONE 20 MG ORAL TABLET 1 tab twice daily for 3 day, then one daily for three days PREDNISONE 20 MG ORAL TABLET 792493 PREDNISONE Inactive TESSALON PERLES 100 MG ORAL CAPSULE 1 to 2 tablets by mouth 3 times daily as needed for cough TESSALON PERLES 100 MG ORAL CAPSULE 957037 BENZONATATE Inactive POTASSIUM CHLORIDE ER 10 MEQ ORAL CAPSULE EXTENDED RELEASE 1 capsule by mouth daily POTASSIUM CHLORIDE ER 10 MEQ ORAL CAPSULE EXTENDED RELEASE POTASSIUM CHLORIDE Inactive NITROSTAT 0.4 MG SUBLINGUAL TABLET SUBLINGUAL 1 tab under tongueas needed for chest pain ( may take 3 total, 5 min apart, then call 911) NITROSTAT 0.4 MG SUBLINGUAL TABLET SUBLINGUAL 494087 NITROGLYCERIN Inactive LOVASTATIN 40 MG ORAL TABLET 1 pill by mouth nightly for cholesterol LOVASTATIN 40 MG ORAL TABLET 499851 LOVASTATIN Inactive CEFDINIR 300 MG ORAL CAPSULE take 1 cap po bid x 10 days CEFDINIR 300 MG ORAL CAPSULE 665583 CEFDINIR Inactive ACEBUTOLOL HCL 200 MG ORAL CAPSULE 1 cap in the morning and 2 caps in the evening ACEBUTOLOL HCL 200 MG ORAL CAPSULE 068950 ACEBUTOLOL HCL Inactive VENTOLIN HFA 108 (90 Base) MCG/ACT INHALATION AEROSOL SOLUTION 2 -4 puffs four times a day PRN VENTOLIN HFA 108 (90 Base) MCG/ ACT INHALATION AEROSOL SOLUTION ALBUTEROL SULFATE Inactive LEVAQUIN 500 MG ORAL TABLET Take 1 tab po daily x 8 days LEVAQUIN 500 MG ORAL TABLET 165708 LEVOFLOXACIN Inactive PREDNISONE 20 MG ORAL TABLET 2 tabs daily for 4 days, 1 tab daily for 4 days, 1/2 tab daily for 4 days PREDNISONE 20 MG ORAL TABLET 299699 PREDNISONE Inactive LOVASTATIN 40 MG ORAL TABLET Take 1 tab po every hs LOVASTATIN 40 MG ORAL TABLET 713039 LOVASTATIN Inactive DILAUDID 2 MG ORAL TABLET Take 1/2 tab po every 4 hours as needed for pain DILAUDID 2 MG ORAL TABLET 028892 HYDROMORPHONE HCL Inactive AMITRIPTYLINE HCL 25 MG ORAL TABLET 1 q hs prn AMITRIPTYLINE HCL 25 MG ORAL TABLET 387719 AMITRIPTYLINE HCL Inactive MECLIZINE HCL 25 MG ORAL TABLET 1 tablet three times daily for 3 days, then 1/ 2 tab three times daily for 3 days. MECLIZINE HCL 25 MG ORAL TABLET 388716 MECLIZINE HCL Inactive AMLODIPINE BESYLATE 5 MG ORAL TABLET Take 1 tab po daily AMLODIPINE BESYLATE 5 MG ORAL TABLET 829704 AMLODIPINE BESYLATE Inactive TOPIRAMATE 25 MG ORAL TABLET 1 tab po BID TOPIRAMATE 25 MG ORAL TABLET 927335 TOPIRAMATE Inactive PREDNISONE 20 MG ORAL TABLET 1 tablet twice daily for 2 days, then 1 tablet once daily for 2 days PREDNISONE 20 MG ORAL TABLET 417800 PREDNISONE Inactive PREDNISONE 20 MG ORAL TABLET 1 tab twice daily for 3 day, then one daily for three days PREDNISONE 20 MG ORAL TABLET 169708 PREDNISONE Inactive NIFEDIPINE ER 30 MG ORAL TABLET EXTENDED RELEASE 24 HOUR 1 daily NIFEDIPINE ER 30 MG ORAL TABLET EXTENDED RELEASE 24 HOUR NIFEDIPINE Inactive AMLODIPINE BESYLATE 5 MG ORAL TABLET 1 tablet by mouth daily 2016 AMLODIPINE BESYLATE 5 MG ORAL TABLET 838912 AMLODIPINE BESYLATE Inactive LASIX 20 MG ORAL TABLET 1 tablet by mouth every morning LASIX 20 MG ORAL TABLET 805358 FUROSEMIDE Inactive POTASSIUM CHLORIDE ER 10 MEQ ORAL CAPSULE EXTENDED RELEASE 1 capsule BID 2016 POTASSIUM CHLORIDE ER 10 MEQ ORAL CAPSULE EXTENDED RELEASE POTASSIUM CHLORIDE Inactive POTASSIUM CHLORIDE 20 MEQ ORAL PACKET 1 tab po q day POTASSIUM CHLORIDE 20 MEQ ORAL PACKET 6477796 POTASSIUM CHLORIDE Inactive PREDNISONE 20 MG ORAL TABLET 2 tablets by mouth today, then 1 tablet by mouth days 2-3 PREDNISONE 20 MG ORAL TABLET 787258 PREDNISONE Inactive SPIRONOLACTONE 25 MG ORAL TABLET 1 tablet by mouth daily SPIRONOLACTONE 25 MG ORAL TABLET 591967 SPIRONOLACTONE Inactive AZITHROMYCIN 250 MG ORAL TABLET 2 po qd x 1 day, then 1 po qd x 4 days 04/06 AZITHROMYCIN 250 MG ORAL TABLET 806481 AZITHROMYCIN Inactive AZITHROMYCIN 250 MG ORAL TABLET 2 po qd x 1 day, then 1 po qd x 4 days 12/30 AZITHROMYCIN 250 MG ORAL TABLET 758623 AZITHROMYCIN Inactive PREDNISONE 20 MG ORAL TABLET 2 po qd x 5 days PREDNISONE 20 MG ORAL TABLET 577459 PREDNISONE Inactive Vital Signs Date Name Value [...] Panel - Chemistry sodium, serum 140 mmol/L 461-525 0219/07/13 potassium, serum 3.2 mmol/L 3.5-5.2 chloride, serum 103 mmol/L 98-107 carbon dioxide, venous blood 26.9 mmol/L 21.0-32.0 blood glucose 93 mg/dL 65-110 calcium, serum 9.2 mg/dL 8.5-10.1 urea nitrogen, blood 13 mg/dL 7-18 creatinine, serum 0.84 mg/dL 0.60-1.30 sodium, serum 140 mmol/L 643-695 8942/08/21 potassium, serum 3.8 mmol/L 3.5-5.2 chloride, serum [...] ... - Chemistry sodium, serum 141 mmol/L 318-515 8092/08/07 carbon dioxide, venous blood 34.0 mmol/L 21.0-32.0 [...] 1.40 mg/dL 0.00-1.00 cholesterol, serum 192 mg/dL 700-695 7497/10/19 triglyceride, serum, fasting 71 mg/dL 30-200 HDL cholesterol, serum 72 mg/dL 32-60 LDL cholesterol, serum 106 mg/dL 0-130 Lab Report: Rapid Strep - Lab Microbial identification kit, rapid strep method Negative Negative Lab Report: THEOPHYLLINE - Toxicology theophylline level, serum 3.1 ug/mL 10.0-20.0 Encounters Code Encounter Date Provider Facility CPT-10447 Level 4 Est. Patient 10:17:51 VESSEL OPERATOR Harinder Cr [facility] CPT-65191 Level 3 Est. Patient 12:36:15 VESSEL OPERATOR Harinder Hernandez [facility] CPT-09120 Level 3 Est. Patient 15:14:45 VESSEL OPERATOR Harinder Cr [facility] CPT-43690 Level 4 Est. Patient 14:45:25 CDT Harinder Cr [facility] CPT-14016 Level 4 Est. Patient 09:15:13 CDT Harinder Cr [facility] CPT-11614 Level 3 Est. Patient 11:51:58 CDT Haridner Cr [facility] CPT-52766 Level 3 Est. Patient 11:30:05 CDT Harinder Cr [facility] CPT-70840 Level 4 Est. Patient 10:19:23 CDT Harinder Cr [facility] CPT-98535 Level 3 Est. Patient 09:58:58 CDT Harinder Cr [facility] CPT-92297 Level 3 Est. Patient 12:37:21 CDT Harinder Hernandez [facility] CPT-75915 Level 3 Est. Patient 18:37:17 CDT Harinder Hernandez [facility] CPT-75822 Level 4 Est. Patient 11:15:54 CDT Nettie Newberry APRN [facility] CPT-42686 Level 3 Est. Patient 16:42:24 CDT Harinder Hernandez [facility] CPT-29273 Level 3 Est. Patient 15:03:36 CDT Harinder Hernandez [facility] CPT-76293 Level 3 Est. Patient 15:03:20 CDT Harinder Hernandez [facility] CPT-00719 Level 3 Est. Patient 12:14:34 CDT Harinder Hernandez [facility] CPT-93870 Level 3 Est. Patient 13:47:15 CDT Harinder Hernandez [facility] CPT-08934 Level 3 Est. Patient 14:08:24 CDT Harinder Hernandez [facility] CPT-44872 Level 3 Est. Patient 10:07:15 CDT Harinder Hernandez [facility] CPT-26017 Level 3 Est. Patient 10:06:59 CDT Harinder Cr [facility] CPT-96702 Level 3 Est. Patient 15:53:29 CDT Jae Morgan MD [facility] CPT-96056 Level 3 Est. Patient 17:19:04 CDT Harinder Hernandez [facility] CPT-57305 Level 3 Est. Patient 11:13:01 CDT Harinder Hernandez [facility] CPT-93040 Level 3 Est. Patient 09:03:58 CDT Harinder Hernandez [facility] CPT-71559 Level 3 Est. Patient 14:46:45 VESSEL OPERATOR Harinder Hernandez [facility] CPT-87269 Level 3 Est. Patient 09:35:49 VESSEL OPERATOR Harinder Hernandez [facility] CPT-78778 Level 3 Est. Patient 09:29:37 VESSEL OPERATOR Harinder Hernandez [facility] CPT-05167 Level 3 Est. Patient 15:51:07 CDT Harinder Hernandez [facility] CPT-11807 Level 3 Est. Patient 18:13:13 CDT Harinder Hernandez [facility] CPT-94512 Level 3 Est. Patient 10:44:19 CDT Harinder Hernandez [facility] CPT-08039 Level 4 Est. Patient 10:07:19 VESSEL OPERATOR Harinder Hernandez [facility] CPT-34332 Level 3 Est. Patient 15:59:32 VESSEL OPERATOR Harinder Hernandez [facility] Procedures Code Procedure Name Date Entry Date Standard Description CPT-93736 Bone Density - XRAY USE ONLY 14:43:42 CDT CPT-G0009 Administration of Pneumococcal Vaccine 10:33:25 VESSEL OPERATOR CPT-29221 Pneumovax 23 Injection Injectable 25 MCG/0.5ML 10:33:25 VESSEL OPERATOR CPT-17868 First Vx - Ix admin for Medicare patients 10:33:25 VESSEL OPERATOR CPT-82019 Fluzone Quadrivalent Intramuscular Suspension 0.5 ML 10: 33:25 VESSEL OPERATOR CPT-Cryo Cryotherapy 10:17:51 VESSEL OPERATOR CPT-G0438 Initial Annual Wellness Exam 10:08:59 VESSEL OPERATOR CPT-26467 Abd compl w upright - XRAY USE ONLY 14:48:09 CDT 02/18 CPT-64272 Port a cath flush 13:46:05 CDT CPT-52782 Hip, complete, 2-3 views - XRAY USE ONLY 10:28:40 CDT CPT-92100 BMP - LAB USE ONLY 16:45:09 VESSEL OPERATOR CPT-74563 Port a cath flush 12:00:13 VESSEL OPERATOR CPT-TCMM Transitional Care Mgmt-Moderate 11:20:16 VESSEL OPERATOR CPT-25890 First Vx - Ix admin for Medicare patients 17:35:15 CDT CPT-43855 Fluzone Preservative Free Intramuscular Suspension 17:35 :15 CDT CPT-16247 Microalbumin - LAB USE ONLY 11:52:05 CDT CPT-TCMM Transitional Care Mgmt-Moderate 11:33:57 CDT CPT-71709 No Charge Offi Visit 14:11:29 CDT CPT-77829 Magnesium - LAB USE ONLY 10:45:44 CDT CPT-20040 Lipid - LAB USE ONLY 10:45:44 CDT CPT-31747 CBC - LAB USE ONLY 10:45:44 CDT CPT-76882 Venipuncture Draw Fee 10:45:43 CDT CPT-66595 Venipuncture Draw Fee 18:21:27 CDT CPT-JTINJ Asp/Joint Injection 18:38:04 CDT CPT-51248 Immunization Each Additional Inj 17:38:04 CDT CPT-96249 Immunization Single Admin 17:38:04 CDT CPT-97867 Prevnar 13 17:38:04 CDT CPT-68797 Fluzone Quadrivalent preservative free (>=3yrs.) 17:38: 04 CDT CPT-98834 No Charge Offi Visit 11:14:03 CDT CPT-62986 Chest 2V Frontal and Lat 14:00:18 CDT CPT-OV Office Visit 16:10:28 CDT CPT-JTINJ Asp/Joint Injection 09:03:57 CDT CPT-Cryo Cryotherapy 09:35:49 VESSEL OPERATOR CPT-JTINJ Asp/Joint Injection 09:34:45 VESSEL OPERATOR CPT-J2930 Solu Medrol 125 mg (Methyl Prednisolone Sodium Succinate) 20:37:27 CDT CPT-62168 Abx/Therapy Injection 20:37:27 CDT CPT-62587 Port a cath flush 08:15:51 CDT CPT-30109 Port a cath flush 09:54:16 CDT CPT-67155 Port a cath flush 09:38:02 CDT CPT-42959 Port a cath flush 11:00:27 VESSEL OPERATOR
--- OUTSIDE RECORDS SUMMARY | 2017-12-29 04:26 | XMS REPORT | Clinical Summary ---
Author Author Admin, QIE Organization [facility] Address Unknown Phone Unavailable Allergies, Adverse Reactions, [...] organism unspecified Bacteremia 790.7 Resolved Harinder Shaye Daivd DO Unspecified bacteremia Clostridium difficile colitis [...] then one daily for three days PREDNISONE 04831140193 No Longer Active Harinder W David DO Active PREDNISONE 20 MG TAB 1 tablet twice daily for 2 days, then 1 tablet once daily for 2 days PREDNISONE 29055559778 No Longer Active Harinder Hernandez DO Active ASMANEX 120 METERED DOSES 220 MCG/INH INH AEPB 2 puffs orally twice daily MOMETASONE FUROATE 86263199677 Active Jeri Sosa RPT,RMA Active NIFEDIPINE ER 30 MG ORAL [id number] 1 daily NIFEDIPINE 38233917943 Active Tawnya Pardo MA Active TOPIRAMATE 25 MG TABS 1 tab po BID TOPIRAMATE 51308803009 No Longer Active Nettie Newberry APRN Active AMLODIPINE BESYLATE 5 MG ORAL TABS Take 1 tab po daily AMLODIPINE BESYLATE 98920347233 No Longer Active Nettie Newberry APRN Active MECLIZINE HCL 25 MG TAB 1 tablet three times daily for 3 days, then 1/2 tab three times daily for 3 days. MECLIZINE HCL 11846428868 No Longer Active Nettie Newberry APRN Active AMITRIPTYLINE HCL 25 MG ORAL TABS 1 q hs prn AMITRIPTYLINE HCL 21453586495 No Longer Active Nettie Newberry APRN Active DILAUDID 2 MG ORAL TABS Take 1/2 tab po every 4 hours as needed for pain 2014 HYDROMORPHONE HCL 83758757623 No Longer Active Nettie Newberry APRN Active CLOPIDOGREL BISULFATE 75 MG ORAL TABS 1 tab by mouth once daily CLOPIDOGREL BISULFATE 99706897681 Active Jeri Sosa RPT,RMA Active ATORVASTATIN CALCIUM 10 MG ORAL TABS 1 at bedtime ATORVASTATIN CALCIUM 57788503414 Active Jeri Sosa RPT,RMA Active LOVASTATIN 40 MG ORAL TABS Take 1 tab po every hs LOVASTATIN 41764501228 No Longer Active Harinder Hernandez DO Active PREDNISONE 20 MG TAB 2 tabs daily for 4 days, 1 tab daily for 4 days, 1/2 tab daily for 4 days PREDNISONE 19137556848 No Longer Active Harinder Hernandez DO Active LEVAQUIN 500 MG ORAL TABS Take 1 tab po daily x 8 days LEVOFLOXACIN 33815870924 No Longer Active Harinder Hernandez DO Active VENTOLIN HFA 108 (90 BASE) MCG/ACT AERS 2 -4 puffs four times a day PRN 2013 ALBUTEROL SULFATE 25390410458 No Longer Active Jeri Sosa RPT,RMA Active ACEBUTOLOL HCL 200 MG CAPS 1 cap in the morning and 2 caps in the evening ACEBUTOLOL HCL 13972860099 No Longer Active Harinder Hernandez DO Active CEFDINIR 300 MG ORAL CAPS take 1 cap po bid x 10 days CEFDINIR 81632001643 No Longer Active Harinder Hernandez DO Active LOVASTATIN 40 MG TABS 1 pill by mouth nightly for cholesterol LOVASTATIN 64292826318 No Longer Active Nettie Newberry APRN Active NITROSTAT 0.4 MG SUBL 1 tab under tongueas needed for chest pain ( may take 3 total, 5 min apart, then call 911) NITROGLYCERIN 77179920566 No Longer Active Nettie Newberry APRN Active POTASSIUM CHLORIDE CR 10 MEQ CPCR 1 capsule by mouth daily 02/14 POTASSIUM CHLORIDE 85347618022 No Longer Active Nettie Newberry APRN Active TESSALON PERLES 100 MG CAP 1 to 2 tablets by mouth 3 times daily as needed for cough BENZONATATE 34619740438 No Longer Active Nettie Newberry APRN Active THEOPHYLLINE ER 200 MG ORAL [id number] Take 1 tab every 12 hours THEOPHYLLINE 80946955984 Active Jeri Sosa RPT,RMA Active PREDNISONE 20 MG TAB 2 po qd x 5 days PREDNISONE 07191755494 No Longer Active Jae Morgan MD Active AZITHROMYCIN 250 MG TABS 2 po qd x 1 day, then 1 po qd x 4 days AZITHROMYCIN 35713788562 No Longer Active Jae Morgan MD Active PREDNISONE 20 MG TAB 1 tab twice daily for 3 day, then one daily for three days PREDNISONE 51958868532 No Longer Active Jae Morgan MD Active SINGULAIR 10 MG TABS 1 pill by mouth every evening for breathing. MONTELUKAST SODIUM 96559111624 Active Tawnya Pardo MA Active TYLENOL 325 MG TAB 3 by mouth q4h as needed ACETAMINOPHEN 14688235942 Active Harinder Hernandez DO Active POTASSIUM CHLORIDE ER 10 MEQ CR-TABS take 1 tab po daily POTASSIUM CHLORIDE 50934782559 No Longer Active Harinder Hernandez DO Active PREDNISONE 20 MG TAB 1 TID x 2 days, then 1 BID x 3 days, then 1 Daily x 3 days, then stop PREDNISONE 80288723522 No Longer Active Jillina Frazell PREPARATION OPERATOR Active LEVAQUIN 500 MG TAB 1 tablet by mouth daily LEVOFLOXACIN 12370766225 No Longer Active Jillina Frazell PREPARATION OPERATOR Active NEURONTIN 300 MG CAP 1 cap by mouth three times daily for restless leg 06/22 GABAPENTIN 58117177976 No Longer Active Harinder Hernandez DO Active BENZONATATE 100 MG CAPS 1 cap po TID PRN BENZONATATE 01662008112 No Longer Active Harinder Hernandez DO Active MONTELUKAST SODIUM 10 MG TABS 1 tab po in the evening MONTELUKAST SODIUM 97087628870 No Longer Active Harinder Hernandez DO Active MUPIROCIN 2 % OINT apply to affected area BID x 14 days MUPIROCIN 89721667028 No Longer Active Harinder Hernandez DO Active TYLENOL EXTRA STRENGTH 500 MG TABS as needed ACETAMINOPHEN 53976532904 No Longer Active Harinder Hernandez DO Active PREDNISONE 10 MG TABS 1 tab po daily PREDNISONE 55664227525 No Longer Active Harinder Hernandez DO Active PREDNISONE 20 MG TAB 2 tabs daily for 4 days, 1 tab daily for 4 days, 1/2 tab daily for 4 days PREDNISONE 22958757901 No Longer Active Harinder Hernandez DO Active AZITHROMYCIN 250 MG TABS 2 po qd x 1 day, then 1 po qd x 4 days AZITHROMYCIN 96478467991 No Longer Active Harinder Hernandez DO Active PREDNISONE 20 MG TAB 3 tabs today, then 1 tab twice daily for 3 day, then one daily for three days PREDNISONE 18896408846 No Longer Active Harinder Hernandez DO Active NIFEDIAC CC 30 MG [id number] 1 tablet daily for raynaud's syndrome NIFEDIPINE 08242687712 No Longer Active Tawnya Pardo MA Active AMBIEN 10 MG TAB 1/2 tab by mouth at bedtime as needed for sleep ZOLPIDEM TARTRATE 45564984041 Active Harinder Hernandez DO Active CLONAZEPAM 1 MG TABS 1 tablet at bedtime for insomnia and restless legs 09/14 CLONAZEPAM 83734450620 Active Jeri Sosa RPT,RMA Active CLONAZEPAM 0.5 MG TABS 1 tab po daily CLONAZEPAM 99860869692 No Longer Active Harinder Hernandez DO Active PREDNISONE 10 MG TAB 1 tablet daily for COPD PREDNISONE 91488376980 Active Tawnya Pardo MA Active PROAIR HFA 108 (90 BASE) MCG/ACT AERS 2 puffs four times a day as needed 2012 ALBUTEROL SULFATE 08522608053 Active Tawnya Pardo MA Active FLOVENT HFA 110 MCG/ACT AERO 2 puffs inhaled b.i.d. FLUTICASONE PROPIONATE HFA 61180078153 Active Tawnya Pardo MA Active EPIPEN 0.3 MG/0.3ML URIEL DIRECTED EPINEPHRINE Active Jeri Sosa RPT,RMA Active ACIPHEX 20 MG TBEC 1 tab po daily RABEPRAZOLE SODIUM 82963823622 Active Tawnya Pardo MA Active CLONAZEPAM 0.5 MG TABS 1 tab po daily CLONAZEPAM 0.5 MG TABS 220858 CLONAZEPAM Inactive PREDNISONE 20 MG TAB 3 tabs today, then 1 tab twice daily for 3 day, then one daily for three days PREDNISONE 20 MG TAB 058578 PREDNISONE Inactive PREDNISONE 20 MG TAB 2 tabs daily for 4 days, 1 tab daily for 4 days, 1/2 tab daily for 4 days PREDNISONE 20 MG TAB 435414 PREDNISONE Inactive PREDNISONE 10 MG TABS 1 tab po daily PREDNISONE 10 MG TABS 731826 PREDNISONE Inactive TYLENOL EXTRA STRENGTH 500 MG TABS as needed TYLENOL EXTRA STRENGTH 500 MG TABS 627598 ACETAMINOPHEN Inactive MUPIROCIN 2 % OINT apply to affected area BID x 14 days MUPIROCIN 2 % OINT 021890 MUPIROCIN Inactive MONTELUKAST SODIUM 10 MG TABS 1 tab po in the evening MONTELUKAST SODIUM 10 MG TABS 782597 MONTELUKAST SODIUM Inactive BENZONATATE 100 MG CAPS 1 cap po TID PRN BENZONATATE 100 MG CAPS 072032 BENZONATATE Inactive NEURONTIN 300 MG CAP 1 cap by mouth three times daily for restless leg 06/22 NEURONTIN 300 MG CAP 433442 GABAPENTIN Inactive LEVAQUIN 500 MG TAB 1 tablet by mouth daily LEVAQUIN 500 MG TAB 249525 LEVOFLOXACIN Inactive PREDNISONE 20 MG TAB 1 TID x 2 days, then 1 BID x 3 days, then 1 Daily x 3 days, then stop PREDNISONE 20 MG TAB 473606 PREDNISONE Inactive POTASSIUM CHLORIDE ER 10 MEQ CR-TABS take 1 tab po daily POTASSIUM CHLORIDE ER 10 MEQ CR-TABS POTASSIUM CHLORIDE Inactive PREDNISONE 20 MG TAB 1 tab twice daily for 3 day, then one daily for three days PREDNISONE 20 MG TAB 686331 PREDNISONE Inactive TESSALON PERLES 100 MG CAP 1 to 2 tablets by mouth 3 times daily as needed for cough TESSALON PERLES 100 MG CAP 865224 BENZONATATE Inactive POTASSIUM CHLORIDE CR 10 MEQ [...] nightly for cholesterol LOVASTATIN 40 MG TABS 616837 LOVASTATIN Inactive CEFDINIR 300 MG ORAL CAPS take 1 cap po bid x 10 days CEFDINIR 300 MG ORAL CAPS 005016 CEFDINIR Inactive ACEBUTOLOL HCL 200 MG CAPS 1 cap in the morning and 2 caps in the evening ACEBUTOLOL HCL 200 MG CAPS 100585 ACEBUTOLOL HCL Inactive VENTOLIN HFA 108 (90 BASE) MCG/ACT AERS 2 -4 puffs four times a day PRN 2013 VENTOLIN HFA 108 (90 BASE) MCG/ACT AERS ALBUTEROL SULFATE Inactive LEVAQUIN 500 MG ORAL TABS Take 1 tab po daily x 8 days LEVAQUIN 500 MG ORAL TABS 103340 LEVOFLOXACIN Inactive PREDNISONE 20 MG TAB 2 tabs daily for 4 days, 1 tab daily for 4 days, 1/2 tab daily for 4 days PREDNISONE 20 MG TAB 255434 PREDNISONE Inactive LOVASTATIN 40 MG ORAL TABS Take 1 tab po every hs LOVASTATIN 40 MG ORAL TABS 836321 LOVASTATIN Inactive DILAUDID 2 MG ORAL TABS Take 1/2 tab po every 4 hours as needed for pain 2014 DILAUDID 2 MG ORAL TABS 165005 HYDROMORPHONE HCL Inactive AMITRIPTYLINE HCL 25 MG ORAL TABS 1 q hs prn AMITRIPTYLINE HCL 25 MG ORAL TABS 532316 AMITRIPTYLINE HCL Inactive MECLIZINE HCL 25 MG TAB 1 tablet three times daily for 3 days, then 1/2 tab three times daily for 3 days. MECLIZINE HCL 25 MG TAB 969807 MECLIZINE HCL Inactive AMLODIPINE BESYLATE 5 MG ORAL TABS Take 1 tab po daily AMLODIPINE BESYLATE 5 MG ORAL TABS 174281 AMLODIPINE BESYLATE Inactive TOPIRAMATE 25 MG TABS 1 tab po BID TOPIRAMATE 25 MG TABS 864575 TOPIRAMATE Inactive PREDNISONE 20 MG TAB 1 tablet twice daily for 2 days, then 1 tablet once daily for 2 days PREDNISONE 20 MG TAB 389462 PREDNISONE Inactive PREDNISONE 20 MG TAB 1 tab twice daily for 3 day, then one daily for three days PREDNISONE 20 MG TAB 365996 PREDNISONE Inactive AZITHROMYCIN 250 MG TABS 2 po qd x 1 day, then 1 po qd x 4 days AZITHROMYCIN 250 MG TABS 0537430 AZITHROMYCIN Inactive AZITHROMYCIN 250 MG TABS 2 po qd x 1 day, then 1 po qd x 4 days AZITHROMYCIN 250 MG TABS 3310699 AZITHROMYCIN Inactive PREDNISONE 20 MG TAB 2 po qd x 5 days PREDNISONE 20 MG TAB 141288 PREDNISONE Inactive Vital Signs Date Name Value [...] Panel - Chemistry sodium, serum 138 mmol/L 348-284 6541/09/24 potassium, serum 3.5 mmol/L 3.5-5.2 chloride, serum [...] Magnesium - Chemistry cholesterol, serum 180 mg/dL 245-214 8845/08/08 triglyceride, serum, fasting 92 mg/dL 30-200 HDL cholesterol, serum 66 mg/dL 32-96 LDL cholesterol, serum 96 mg/dL 0-130 sodium, serum 142 mmol/L 936-256 3976/08/08 carbon dioxide, venous blood 27.4 mmol/L 21.0-32.0 [...] 10.0-20.0 Encounters Code Encounter Date Provider Facility CPT-53969 Level 3 Est. Patient 09:58:58 CDT Harinder Hernandez [facility] CPT-42721 Level 3 Est. Patient 12:37:21 CDT Harinder Hernandez [facility] CPT-79891 Level 3 Est. Patient 18:37:17 CDT Harinder Hernandez [facility] CPT-61128 Level 4 Est. Patient 11:15:54 CDT Nettie Newberry APRN [facility] CPT-91943 Level 3 Est. Patient 16:42:24 CDT Harinder Hernandez [facility] CPT-14273 Level 3 Est. Patient 15:03:36 CDT Harinder Hernandez [facility] CPT-67084 Level 3 Est. Patient 15:03:20 CDT Harinder Hernandez [facility] CPT-40504 Level 3 Est. Patient 12:14:34 CDT Harinder Shaye David [facility] CPT-74926 Level 3 Est. Patient 13:47:15 CDT Harinder Hernandez [facility] CPT-58245 Level 3 Est. Patient 14:08:24 CDT Harinder Hernandez [facility] CPT-81177 Level 3 Est. Patient 10:07:15 CDT Harinder Hernandez [facility] CPT-30957 Level 3 Est. Patient 10:06:59 CDT Harinder Hernandez [facility] CPT-01910 Level 3 Est. Patient 15:53:29 CDT Jae Morgan MD [facility] CPT-11858 Level 3 Est. Patient 17:19:04 CDT Harinder Shaye David [facility] CPT-71405 Level 3 Est. Patient 11:13:01 CDT Harinder Cr David [facility] CPT-49682 Level 3 Est. Patient 09:03:58 CDT Harinder Hernandez [facility] CPT-36049 Level 3 Est. Patient 14:46:45 COOK HELPER Harinder Hernandez [facility] CPT-98217 Level 3 Est. Patient 09:35:49 COOK HELPER Harinder Hernandez [facility] CPT-24297 Level 3 Est. Patient 09:29:37 COOK HELPER Harinder Hernandez [facility] CPT-84552 Level 3 Est. Patient 15:51:07 CDT Harinder Hernandez [facility] CPT-89531 Level 3 Est. Patient 18:13:13 CDT Harinder Hernandez [facility] CPT-27678 Level 3 Est. Patient 10:44:19 CDT Harinder Hernandez [facility] CPT-29264 Level 4 Est. Patient 10:07:19 COOK HELPER Harinder Cr [facility] CPT-57712 Level 3 Est. Patient 15:59:32 COOK HELPER Harinder Cr [facility] Procedures Code Procedure Name Date Entry Date Standard Description CPT-60938 No Charge Offi Visit 14:11:29 CDT CPT-31062 Magnesium - LAB USE ONLY 10:45:44 CDT CPT-59130 Lipid - LAB USE ONLY 10:45:44 CDT CPT-03841 CBC - LAB USE ONLY 10:45:44 CDT CPT-13279 Venipuncture Draw Fee 10:45:43 CDT CPT-68871 Venipuncture Draw Fee 18:21:27 CDT CPT-JTINJ Asp/Joint Injection 18:38:04 CDT CPT-02527 Immunization Each Additional Inj 17:38:04 CDT CPT-08117 Immunization Single Admin 17:38:04 CDT CPT-64754 Prevnar 13 17:38:04 CDT CPT-38771 Fluzone Quadrivalent preservative free (>=3yrs.) 17:38: 04 CDT CPT-97200 No Charge Offi Visit 11:14:03 CDT CPT-14934 Chest 2V Frontal and Lat 14:00:18 CDT CPT-OV Office Visit 16:10:28 CDT CPT-JTINJ Asp/Joint Injection 09:03:57 CDT CPT-Cryo Cryotherapy 09:35:49 COOK HELPER CPT-JTINJ Asp/Joint Injection 09:34:45 COOK HELPER CPT-J2930 Solu Medrol 125 mg (Methyl Prednisolone Sodium Succinate) 20:37:27 CDT CPT-44800 Abx/Therapy Injection 20:37:27 CDT CPT-69110 Port a cath flush 08:15:51 CDT CPT-79712 Port a cath flush 09:54:16 CDT CPT-13676 Port a cath flush 09:38:02 CDT CPT-29565 Port a cath flush 11:00:27 COOK HELPER
--- OUTSIDE RECORDS SUMMARY | 2017-12-29 04:27 | XMS REPORT | Clinical Summary ---
Author Author Admin, QIE Organization [facility] Address Unknown Phone Unavailable Allergies, Adverse Reactions, [...] 1 po qd for depression/anxiety FLUOXETINE HCL 10458207185 Active Harinder Hernandez DO Active VOLTAREN 1 % GEL apply q 6-8 hour to left arm as needed for pain DICLOFENAC SODIUM 77664838502 Active Harinder Hernandez DO Active LASIX 20 MG TAB 1 tablet by mouth every morning FUROSEMIDE 12499971747 Active Kortney Mccain Active POTASSIUM CHLORIDE 20 MEQ ORAL PACK 1 tab po BID POTASSIUM CHLORIDE 98726451252 Active Kortney Mccain Active ALBUTEROL SULFATE 0.083 % NEBU SOLN 1 vial neb q 4hrs for severe asthma. 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 FLUTICASONE PROPIONATE HFA 26112991114 Active Harinder Hernandez DO Active POTASSIUM CHLORIDE CR 10 MEQ CPCR 1 capsule by mouth daily POTASSIUM CHLORIDE 28375683883 Active Harinder Hernandez DO Active EPIPEN 2-BRUNA 0.3 MG/0.3ML INJ SOAJ 1 INJ NEEDED EPINEPHRINE 97455392603 Active Harinder Hernandez DO Active PREDNISONE 20 MG TAB 1 tab twice daily for 3 day, then one daily for three days PREDNISONE 81849505099 No Longer Active Harinder Hernandez DO Active PREDNISONE 20 MG TAB 1 tablet twice daily for 2 days, then 1 tablet once daily for 2 days PREDNISONE 20228214949 No Longer Active Harinder Hernandez DO Active ASMANEX 120 METERED DOSES 220 MCG/INH INH AEPB 2 puffs orally twice daily MOMETASONE FUROATE 04258835774 Active Jeri Sosa RPT,RMA Active TOPIRAMATE 25 MG TABS 1 tab po BID TOPIRAMATE 11382235691 No Longer Active Nettie Newberry APRN Active AMLODIPINE BESYLATE 5 MG ORAL TABS Take 1 tab po daily AMLODIPINE BESYLATE 64008353432 No Longer Active Nettie Newberry APRN Active MECLIZINE HCL 25 MG TAB 1 tablet three times daily for 3 days, then 1/2 tab three times daily for 3 days. MECLIZINE HCL 20898175573 No Longer Active Nettie Newberry APRN Active AMITRIPTYLINE HCL 25 MG ORAL TABS 1 q hs prn AMITRIPTYLINE HCL 68073538074 No Longer Active Nettie Newberry APRN Active DILAUDID 2 MG ORAL TABS Take 1/2 tab po every 4 hours as needed for pain 2014 HYDROMORPHONE HCL 93717037640 No Longer Active Nettie Newberry APRN Active CLOPIDOGREL BISULFATE 75 MG ORAL TABS 1 tab by mouth once daily CLOPIDOGREL BISULFATE 60856737933 Active Harinder Hernandez DO Active ATORVASTATIN CALCIUM 10 MG ORAL TABS 1 at bedtime ATORVASTATIN CALCIUM 27162814015 Active Tawnya Pardo MA Active LOVASTATIN 40 MG ORAL TABS Take 1 tab po every hs LOVASTATIN 90688225123 No Longer Active Harinder Hernandez DO Active PREDNISONE 20 MG TAB 2 tabs daily for 4 days, 1 tab daily for 4 days, 1/2 tab daily for 4 days PREDNISONE 58189494118 No Longer Active Harinder Hernandez DO Active LEVAQUIN 500 MG ORAL TABS Take 1 tab po daily x 8 days LEVOFLOXACIN 83226503316 No Longer Active Harinder Hernandez DO Active VENTOLIN HFA 108 (90 BASE) MCG/ACT AERS 2 -4 puffs four times a day PRN 2013 ALBUTEROL SULFATE 92044716366 No Longer Active Jeri Sosa RPT,RMA Active ACEBUTOLOL HCL 200 MG CAPS 1 cap in the morning and 2 caps in the evening ACEBUTOLOL HCL 63127974382 No Longer Active Harinder Hernandez DO Active CEFDINIR 300 MG ORAL CAPS take 1 cap po bid x 10 days CEFDINIR 58493934352 No Longer Active Harinder Hernandez DO Active LOVASTATIN 40 MG TABS 1 pill by mouth nightly for cholesterol LOVASTATIN 25012675167 No Longer Active Nettie Newberry APRN Active NITROSTAT 0.4 MG SUBL 1 tab under tongueas needed for chest pain ( may take 3 total, 5 min apart, then call 911) NITROGLYCERIN 87089532992 No Longer Active Nettie Newberry APRN Active POTASSIUM CHLORIDE CR 10 MEQ CPCR 1 capsule by mouth daily 02/14 POTASSIUM CHLORIDE 79794957182 No Longer Active Nettie Newberry APRN Active TESSALON PERLES 100 MG CAP 1 to 2 tablets by mouth 3 times daily as needed for cough BENZONATATE 71386800146 No Longer Active Nettie Newberry MAHENDRA Active THEOPHYLLINE ER 200 MG ORAL [id number] Take 1 tab every 12 hours THEOPHYLLINE 21423105206 Active Kortney Mccain Active PREDNISONE 20 MG TAB 2 po qd x 5 days PREDNISONE 18333078459 No Longer Active Jae Morgan MD Active AZITHROMYCIN 250 MG TABS 2 po qd x 1 day, then 1 po qd x 4 days AZITHROMYCIN 74748015038 No Longer Active Jae Morgan MD Active PREDNISONE 20 MG TAB 1 tab twice daily for 3 day, then one daily for three days PREDNISONE 26919890662 No Longer Active Jae Morgan MD Active SINGULAIR 10 MG TABS 1 pill by mouth every evening for breathing. MONTELUKAST SODIUM 40017288846 Active Tawnya Pardo MA Active TYLENOL 325 MG TAB 3 by mouth q4h as needed ACETAMINOPHEN 23861953434 Active Harinder Hernandez DO Active POTASSIUM CHLORIDE ER 10 MEQ CR-TABS take 1 tab po daily POTASSIUM CHLORIDE 67379476352 No Longer Active Harinder Hernandez DO Active PREDNISONE 20 MG TAB 1 TID x 2 days, then 1 BID x 3 days, then 1 Daily x 3 days, then stop PREDNISONE 84594300768 No Longer Active Jillkvng Frazelolr MCCRAY Active LEVAQUIN 500 MG TAB 1 tablet by mouth daily LEVOFLOXACIN 47658220036 No Longer Active Jillina Frazell MAHENDRA Active NEURONTIN 300 MG CAP 1 cap by mouth three times daily for restless leg 06/22 GABAPENTIN 25057430101 No Longer Active Harinder Hernandez DO Active BENZONATATE 100 MG CAPS 1 cap po TID PRN BENZONATATE 68657556419 No Longer Active Harinder Hernandez DO Active MONTELUKAST SODIUM 10 MG TABS 1 tab po in the evening MONTELUKAST SODIUM 88080777465 No Longer Active Harinder Hernandez DO Active MUPIROCIN 2 % OINT apply to affected area BID x 14 days MUPIROCIN 32681258304 No Longer Active Harinder Hernandez DO Active TYLENOL EXTRA STRENGTH 500 MG TABS as needed ACETAMINOPHEN 31115981669 No Longer Active Harinder Hernandez DO Active PREDNISONE 10 MG TABS 1 tab po daily PREDNISONE 17180940722 No Longer Active Harinder Hernandez DO Active PREDNISONE 20 MG TAB 2 tabs daily for 4 days, 1 tab daily for 4 days, 1/2 tab daily for 4 days PREDNISONE 47435972922 No Longer Active Harinder Hernandez DO Active AZITHROMYCIN 250 MG TABS 2 po qd x 1 day, then 1 po qd x 4 days AZITHROMYCIN 05082436812 No Longer Active Harinder Hernandez DO Active PREDNISONE 20 MG TAB 3 tabs today, then 1 tab twice daily for 3 day, then one daily for three days PREDNISONE 53798933290 No Longer Active Harinder Hernandez DO Active NIFEDIAC CC 30 MG [id number] 1 tablet daily for raynaud's syndrome NIFEDIPINE 90788301177 No Longer Active Tawnya Pardo MA Active AMBIEN 10 MG TAB 1/2 tab by mouth at bedtime as needed for sleep ZOLPIDEM TARTRATE 69593431887 Active Ciera Pimentel Active CLONAZEPAM 1 MG TABS 1 tablet at bedtime for insomnia and restless legs 09/14 CLONAZEPAM 23667595527 Active Harinder Hernandez DO Active CLONAZEPAM 0.5 MG TABS 1 tab po daily CLONAZEPAM 60624972998 No Longer Active Harinder Hernandez DO Active PREDNISONE 10 MG TAB 1 tablet daily for COPD PREDNISONE 85913522768 Active Ciera Pimentel Active PROAIR HFA 108 (90 BASE) MCG/ACT AERS 2 puffs four times a day as needed 2012 ALBUTEROL SULFATE 59368403011 Active Harinder Hernandez DO Active FLOVENT HFA 110 MCG/ACT AERO 2 puffs inhaled b.i.d. FLUTICASONE PROPIONATE HFA 55854732143 Active Kortney Mccain Active ACIPHEX 20 MG TBEC 1 tab po daily RABEPRAZOLE SODIUM 50637413146 Active Kaylah Rohith Active CLONAZEPAM 0.5 MG TABS 1 tab po daily CLONAZEPAM 0.5 MG TABS 507466 CLONAZEPAM Inactive PREDNISONE 20 MG TAB 3 tabs today, then 1 tab twice daily for 3 day, then one daily for three days PREDNISONE 20 MG TAB 123132 PREDNISONE Inactive PREDNISONE 20 MG TAB 2 tabs daily for 4 days, 1 tab daily for 4 days, 1/2 tab daily for 4 days PREDNISONE 20 MG TAB 095688 PREDNISONE Inactive PREDNISONE 10 MG TABS 1 tab po daily PREDNISONE 10 MG TABS 222102 PREDNISONE Inactive TYLENOL EXTRA STRENGTH 500 MG TABS as needed TYLENOL EXTRA STRENGTH 500 MG TABS 178253 ACETAMINOPHEN Inactive MUPIROCIN 2 % OINT apply to affected area BID x 14 days MUPIROCIN 2 % OINT 927065 MUPIROCIN Inactive MONTELUKAST SODIUM 10 MG TABS 1 tab po in the evening MONTELUKAST SODIUM 10 MG TABS 859237 MONTELUKAST SODIUM Inactive BENZONATATE 100 MG CAPS 1 cap po TID PRN BENZONATATE 100 MG CAPS 231514 BENZONATATE Inactive NEURONTIN 300 MG CAP 1 cap by mouth three times daily for restless leg 06/22 NEURONTIN 300 MG CAP 754525 GABAPENTIN Inactive LEVAQUIN 500 MG TAB 1 tablet by mouth daily LEVAQUIN 500 MG TAB 718697 LEVOFLOXACIN Inactive PREDNISONE 20 MG TAB 1 TID x 2 days, then 1 BID x 3 days, then 1 Daily x 3 days, then stop PREDNISONE 20 MG TAB 098081 PREDNISONE Inactive POTASSIUM CHLORIDE ER 10 MEQ CR-TABS take 1 tab po daily POTASSIUM CHLORIDE ER 10 MEQ CR-TABS POTASSIUM CHLORIDE Inactive PREDNISONE 20 MG TAB 1 tab twice daily for 3 day, then one daily for three days PREDNISONE 20 MG TAB 780819 PREDNISONE Inactive TESSALON PERLES 100 MG CAP 1 to 2 tablets by mouth 3 times daily as needed for cough TESSALON PERLES 100 MG CAP 454170 BENZONATATE Inactive POTASSIUM CHLORIDE CR 10 MEQ CPCR 1 capsule by mouth daily 02/14 POTASSIUM CHLORIDE CR 10 MEQ CPCR POTASSIUM CHLORIDE Inactive NITROSTAT 0.4 MG SUBL 1 tab under tongueas needed for chest pain ( may take 3 total, 5 min apart, then call 911) NITROSTAT 0.4 MG SUBL 180362 NITROGLYCERIN Inactive LOVASTATIN 40 MG TABS 1 pill by mouth nightly for cholesterol LOVASTATIN 40 MG TABS LOVASTATIN Inactive CEFDINIR 300 MG ORAL CAPS take 1 cap po bid x 10 days CEFDINIR 300 MG ORAL CAPS 20021018 CEFDINIR Inactive ACEBUTOLOL HCL 200 MG CAPS 1 cap in the morning and 2 caps in the evening ACEBUTOLOL HCL 200 MG CAPS 084248 ACEBUTOLOL HCL Inactive VENTOLIN HFA 108 (90 BASE) MCG/ACT AERS 2 -4 puffs four times a day PRN 2013 VENTOLIN HFA 108 (90 BASE) MCG/ACT AERS ALBUTEROL SULFATE Inactive LEVAQUIN 500 MG ORAL TABS Take 1 tab po daily x 8 days LEVAQUIN 500 MG ORAL TABS 400940 LEVOFLOXACIN Inactive PREDNISONE 20 MG TAB 2 tabs daily for 4 days, 1 tab daily for 4 days, 1/2 tab daily for 4 days PREDNISONE 20 MG TAB 049623 PREDNISONE Inactive LOVASTATIN 40 MG ORAL TABS Take 1 tab po every hs LOVASTATIN 40 MG ORAL TABS 843861 LOVASTATIN Inactive DILAUDID 2 MG ORAL TABS Take 1/2 tab po every 4 hours as needed for pain 2014 DILAUDID 2 MG ORAL TABS 903909 HYDROMORPHONE HCL Inactive AMITRIPTYLINE HCL 25 MG ORAL TABS 1 q hs prn AMITRIPTYLINE HCL 25 MG ORAL TABS 264607 AMITRIPTYLINE HCL Inactive MECLIZINE HCL 25 MG TAB 1 tablet three times daily for 3 days, then 1/2 tab three times daily for 3 days. MECLIZINE HCL 25 MG TAB 821632 MECLIZINE HCL Inactive AMLODIPINE BESYLATE 5 MG ORAL TABS Take 1 tab po daily AMLODIPINE BESYLATE 5 MG ORAL TABS 110269 AMLODIPINE BESYLATE Inactive TOPIRAMATE 25 MG TABS 1 tab po BID TOPIRAMATE 25 MG TABS 623020 TOPIRAMATE Inactive PREDNISONE 20 MG TAB 1 tablet twice daily for 2 days, then 1 tablet once daily for 2 days PREDNISONE 20 MG TAB 271755 PREDNISONE Inactive PREDNISONE 20 MG TAB 1 tab twice daily for 3 day, then one daily for three days PREDNISONE 20 MG TAB 372243 PREDNISONE Inactive NIFEDIPINE ER 30 MG ORAL [id number] 1 daily NIFEDIPINE ER 30 MG ORAL [id number] NIFEDIPINE Inactive AMLODIPINE BESYLATE 5 MG TABS 1 tablet by mouth daily AMLODIPINE BESYLATE 5 MG TABS 448129 AMLODIPINE BESYLATE Inactive AZITHROMYCIN 250 MG TABS 2 po qd x 1 day, then 1 po qd x 4 days AZITHROMYCIN 250 MG TABS 9907653 AZITHROMYCIN Inactive AZITHROMYCIN 250 MG TABS 2 po qd x 1 day, then 1 po qd x 4 days AZITHROMYCIN 250 MG TABS 4661810 AZITHROMYCIN Inactive PREDNISONE 20 MG TAB 2 po qd x 5 days PREDNISONE 20 MG TAB 752240 PREDNISONE Inactive Vital Signs Date Name Value [...] Panel - Chemistry sodium, serum 137 mmol/L 805-099 5275/01/03 potassium, serum 3.4 mmol/L 3.5-5.2 chloride, serum [...] Magnesium - Chemistry cholesterol, serum 180 mg/dL 452-641 8058/08/08 triglyceride, serum, fasting 92 mg/dL 30-200 HDL cholesterol, serum 66 mg/dL 32-96 LDL cholesterol, serum 96 mg/dL 0-130 sodium, serum 142 mmol/L 426-300 8499/08/08 carbon dioxide, venous blood 27.4 mmol/L 21.0-32.0 [...] 10.0-20.0 Encounters Code Encounter Date Provider Facility CPT-84787 Level 4 Est. Patient 09:15:13 CDT Harinder Cr [facility] CPT-42074 Level 3 Est. Patient 11:51:58 CDT Harinder Cr [facility] CPT-82912 Level 3 Est. Patient 11:30:05 CDT [facility] CPT-29714 Level 4 Est. Patient 10:19:23 CDT [facility] CPT-07458 Level 3 Est. Patient 09:58:58 CDT [facility] CPT-31155 Level 3 Est. Patient 12:37:21 CDT [facility] CPT-62930 Level 3 Est. Patient 18:37:17 CDT [facility] CPT-18866 Level 4 Est. Patient 11:15:54 CDT Nettie Newberry APRN [facility] CPT-61763 Level 3 Est. Patient 16:42:24 CDT Harinder Hernandez [facility] CPT-24073 Level 3 Est. Patient 15:03:36 CDT Harinder Hernandez [facility] CPT-41674 Level 3 Est. Patient 15:03:20 CDT Harinder Hernandez [facility] CPT-90901 Level 3 Est. Patient 12:14:34 CDT Harinder Hernandez [facility] CPT-49808 Level 3 Est. Patient 13:47:15 CDT Harinder Hernandez [facility] CPT-16974 Level 3 Est. Patient 14:08:24 CDT Harinder Hernandez [facility] CPT-91740 Level 3 Est. Patient 10:07:15 CDT Harinder Hernandez [facility] CPT-02897 Level 3 Est. Patient 10:06:59 CDT Harinder Hernandez [facility] CPT-87379 Level 3 Est. Patient 15:53:29 CDT Jae Morgan MD [facility] CPT-39789 Level 3 Est. Patient 17:19:04 CDT Harinder Hernandez [facility] CPT-91168 Level 3 Est. Patient 11:13:01 CDT Harinder Cr David [facility] CPT-90800 Level 3 Est. Patient 09:03:58 CDT Harinder Hernandez [facility] CPT-45166 Level 3 Est. Patient 14:46:45 [employer] Harinder Hernandez [facility] CPT-57648 Level 3 Est. Patient 09:35:49 [employer]CH[employer] Harinder Hernandez [facility] CPT-17310 Level 3 Est. Patient 09:29:37 [employer]CHITECT Harinder Hernandez [facility] CPT-50914 Level 3 Est. Patient 15:51:07 CDT Harinder Hernandez [facility] CPT-24832 Level 3 Est. Patient 18:13:13 CDT Harinder Hernandez [facility] CPT-63879 Level 3 Est. Patient 10:44:19 CDT Harinder Hernandez [facility] CPT-22665 Level 4 Est. Patient 10:07:19 [employer] Harinder Hernandez [facility] CPT-89239 Level 3 Est. Patient 15:59:32 [employer]IOR [employer] ARCHITECT Harinder Cr [facility] Procedures Code Procedure Name Date Entry Date Standard Description CPT-03629 Port a cath flush 13:46:05 CDT CPT-72631 Hip, complete, 2-3 views - XRAY USE ONLY 10:28:40 CDT CPT-59799 BMP - LAB USE ONLY 16:45:09 [employer] CPT-63483 Port a cath flush 12:00:13 [employer]CH[employer]ECT CPT-TCMM Transitional Care Mgmt-Moderate 11:20:16 [employer] CPT-70857 First Vx - Ix admin for Medicare patients 17:35:15 CDT CPT-46281 Fluzone Preservative Free Intramuscular Suspension 17:35 :15 CDT CPT-90943 Microalbumin - LAB USE ONLY 11:52:05 CDT CPT-TCMM Transitional Care Mgmt-Moderate 11:33:57 CDT CPT-34794 No Charge Offi Visit 14:11:29 CDT CPT-32240 Magnesium - LAB USE ONLY 10:45:44 CDT CPT-76671 Lipid - LAB USE ONLY 10:45:44 CDT CPT-72728 CBC - LAB USE ONLY 10:45:44 CDT CPT-75450 Venipuncture Draw Fee 10:45:43 CDT CPT-13392 Venipuncture Draw Fee 18:21:27 CDT CPT-JTINJ Asp/Joint Injection 18:38:04 CDT CPT-75896 Immunization Each Additional Inj 17:38:04 CDT CPT-81355 Immunization Single Admin 17:38:04 CDT CPT-14642 Prevnar 13 17:38:04 CDT CPT-04361 Fluzone Quadrivalent preservative free (>=3yrs.) 17:38: 04 CDT CPT-29818 No Charge Offi Visit 11:14:03 CDT CPT-80016 Chest 2V Frontal and Lat 14:00:18 CDT CPT-OV Office Visit 16:10:28 CDT CPT-JTINJ Asp/Joint Injection 09:03:57 CDT CPT-Cryo Cryotherapy 09:35:49 [employer] CPT-JTINJ Asp/Joint Injection 09:34:45 [employer]IOR [employer]CH[employer] CPT-J2930 Solu Medrol 125 mg (Methyl Prednisolone Sodium Succinate) 20:37:27 CDT CPT-05658 Abx/Therapy Injection 20:37:27 CDT CPT-50413 Port a cath flush 08:15:51 CDT CPT-50348 Port a cath flush 09:54:16 CDT CPT-82912 Port a cath flush 09:38:02 CDT [facility]-66635 Port a cath flush 11:00:27 S[employer]IOR DATA [employer] ARCHITECT
--- OUTSIDE RECORDS SUMMARY | 2017-12-29 04:29 | XMS REPORT | Clinical Summary ---
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 NIFEDIPINE 01507819721 Active Harinder Hernandez DO Active AMLODIPINE BESYLATE 5 MG TABS 1 tablet by mouth daily AMLODIPINE BESYLATE 14077809834 No Longer Active Harinder Hernandez DO Active TOPAMAX 25 MG ORAL TABS 1 tab po BID TOPIRAMATE 67868657973 Active Kortney Mccain Active FLUTICASONE PROPIONATE 50 MCG/ACT SUSP 2 sprays per nostril daily PRN Allergies FLUTICASONE PROPIONATE 10028096402 Active Kortney Mccain Active NIFEDIPINE ER 30 MG ORAL [id number] 1 daily NIFEDIPINE 79861193574 No Longer Active Harinder Hernandez DO Active POTASSIUM CHLORIDE 20 MEQ ORAL PACK Take 1 tablet by mouth daily POTASSIUM CHLORIDE 05870337672 Active Ciera Pimentel Active FLOVENT HFA 110 MCG/ACT AERO 2 puffs inhaled b.i.d. FLUTICASONE PROPIONATE HFA 15195458181 Active Harinder Hernandez DO Active POTASSIUM CHLORIDE CR 10 MEQ CPCR 1 capsule by mouth daily POTASSIUM CHLORIDE 03048425945 Active Harinder Hernandez DO Active EPIPEN 2-BRUNA 0.3 MG/0.3ML INJ SOAJ 1 INJ NEEDED EPINEPHRINE 94504749025 Active Harinder Hernandez DO Active PREDNISONE 20 MG TAB 1 tab twice daily for 3 day, then one daily for three days PREDNISONE 07436674717 No Longer Active Harinder Hernandez DO Active PREDNISONE 20 MG TAB 1 tablet twice daily for 2 days, then 1 tablet once daily for 2 days PREDNISONE 49030424238 No Longer Active Harinder Hernandez DO Active ASMANEX 120 METERED DOSES 220 MCG/INH INH AEPB 2 puffs orally twice daily MOMETASONE FUROATE 43071292806 Active Jeri Sosa RPT,RMA Active TOPIRAMATE 25 MG TABS 1 tab po BID TOPIRAMATE 47286819992 No Longer Active Nettie Newberry APRN Active AMLODIPINE BESYLATE 5 MG ORAL TABS Take 1 tab po daily AMLODIPINE BESYLATE 13620518019 No Longer Active Nettie Newberry APRN Active MECLIZINE HCL 25 MG TAB 1 tablet three times daily for 3 days, then 1/2 tab three times daily for 3 days. MECLIZINE HCL 26218503554 No Longer Active Nettie Newberry APRN Active AMITRIPTYLINE HCL 25 MG ORAL TABS 1 q hs prn AMITRIPTYLINE HCL 07346745394 No Longer Active Nettie Newberry APRN Active DILAUDID 2 MG ORAL TABS Take 1/2 tab po every 4 hours as needed for pain 2014 HYDROMORPHONE HCL 23938570300 No Longer Active Nettie Newberry APRN Active CLOPIDOGREL BISULFATE 75 MG ORAL TABS 1 tab by mouth once daily CLOPIDOGREL BISULFATE 62298170930 Active Harinder Hernandez DO Active ATORVASTATIN CALCIUM 10 MG ORAL TABS 1 at bedtime ATORVASTATIN CALCIUM 18438417306 Active Tawnya Pardo MA Active LOVASTATIN 40 MG ORAL TABS Take 1 tab po every hs LOVASTATIN 51000179763 No Longer Active Harinder Hernandez DO Active PREDNISONE 20 MG TAB 2 tabs daily for 4 days, 1 tab daily for 4 days, 1/2 tab daily for 4 days PREDNISONE 36130725195 No Longer Active Harinder Hernandez DO Active LEVAQUIN 500 MG ORAL TABS Take 1 tab po daily x 8 days LEVOFLOXACIN 30061372590 No Longer Active Harinder Hernandez DO Active VENTOLIN HFA 108 (90 BASE) MCG/ACT AERS 2 -4 puffs four times a day PRN 2013 ALBUTEROL SULFATE 61988449460 No Longer Active Jeri Sosa RPT,RMA Active ACEBUTOLOL HCL 200 MG CAPS 1 cap in the morning and 2 caps in the evening ACEBUTOLOL HCL 54393351038 No Longer Active Harinder Hernandez DO Active CEFDINIR 300 MG ORAL CAPS take 1 cap po bid x 10 days CEFDINIR 85115644616 No Longer Active Harinder Hernandez DO Active LOVASTATIN 40 MG TABS 1 pill by mouth nightly for cholesterol LOVASTATIN 85672819783 No Longer Active Nettie Newberry APRN Active NITROSTAT 0.4 MG SUBL 1 tab under tongueas needed for chest pain ( may take 3 total, 5 min apart, then call 911) NITROGLYCERIN 08404494660 No Longer Active Nettie Newberry APRN Active POTASSIUM CHLORIDE CR 10 MEQ CPCR 1 capsule by mouth daily 02/14 POTASSIUM CHLORIDE 31308851469 No Longer Active Nettie Newberry APRN Active TESSALON PERLES 100 MG CAP 1 to 2 tablets by mouth 3 times daily as needed for cough BENZONATATE 94234306033 No Longer Active Nettie Newberry APRN Active THEOPHYLLINE ER 200 MG ORAL [id number] Take 1 tab every 12 hours THEOPHYLLINE 99256844749 Active Tawnya Pardo MA Active PREDNISONE 20 MG TAB 2 po qd x 5 days PREDNISONE 57793277769 No Longer Active Jae Morgan MD Active AZITHROMYCIN 250 MG TABS 2 po qd x 1 day, then 1 po qd x 4 days AZITHROMYCIN 45080939453 No Longer Active Jae Morgan MD Active PREDNISONE 20 MG TAB 1 tab twice daily for 3 day, then one daily for three days PREDNISONE 35401839804 No Longer Active Jae Morgan MD Active SINGULAIR 10 MG TABS 1 pill by mouth every evening for breathing. MONTELUKAST SODIUM 15370009643 Active Tawnya Pardo MA Active TYLENOL 325 MG TAB 3 by mouth q4h as needed ACETAMINOPHEN 25398977776 Active Harinder Hernandez DO Active POTASSIUM CHLORIDE ER 10 MEQ CR-TABS take 1 tab po daily POTASSIUM CHLORIDE 93621803735 No Longer Active Harinder Hernandez DO Active PREDNISONE 20 MG TAB 1 TID x 2 days, then 1 BID x 3 days, then 1 Daily x 3 days, then stop PREDNISONE 77550373762 No Longer Active Jillina Frazell [employer] Active LEVAQUIN 500 MG TAB 1 tablet by mouth daily LEVOFLOXACIN 66905760521 No Longer Active Jillina Frazell [employer] Active NEURONTIN 300 MG CAP 1 cap by mouth three times daily for restless leg 06/22 GABAPENTIN 73997516786 No Longer Active Harinder Hernandez DO Active BENZONATATE 100 MG CAPS 1 cap po TID PRN BENZONATATE 87445337750 No Longer Active Harinder Hernandez DO Active MONTELUKAST SODIUM 10 MG TABS 1 tab po in the evening MONTELUKAST SODIUM 77861525940 No Longer Active Harinder Hernandez DO Active MUPIROCIN 2 % OINT apply to affected area BID x 14 days MUPIROCIN 74149246488 No Longer Active Harinder Hernandez DO Active TYLENOL EXTRA STRENGTH 500 MG TABS as needed ACETAMINOPHEN 39363386891 No Longer Active Harinder Hernandez DO Active PREDNISONE 10 MG TABS 1 tab po daily PREDNISONE 06269645189 No Longer Active Harinder Hernandez DO Active PREDNISONE 20 MG TAB 2 tabs daily for 4 days, 1 tab daily for 4 days, 1/2 tab daily for 4 days PREDNISONE 50565161326 No Longer Active Harinder Hernandez DO Active AZITHROMYCIN 250 MG TABS 2 po qd x 1 day, then 1 po qd x 4 days AZITHROMYCIN 55760693001 No Longer Active Harinder Hernandez DO Active PREDNISONE 20 MG TAB 3 tabs today, then 1 tab twice daily for 3 day, then one daily for three days PREDNISONE 14911431734 No Longer Active Harinder Hernandez DO Active NIFEDIAC CC 30 MG [id number] 1 tablet daily for raynaud's syndrome NIFEDIPINE 64567845987 No Longer Active Tawnya Pardo MA Active AMBIEN 10 MG TAB 1/2 tab by mouth at bedtime as needed for sleep ZOLPIDEM TARTRATE 13732192220 Active Kortney Mccain Active CLONAZEPAM 1 MG TABS 1 tablet at bedtime for insomnia and restless legs 09/14 CLONAZEPAM 72637379694 Active Harinder Hernandez DO Active CLONAZEPAM 0.5 MG TABS 1 tab po daily CLONAZEPAM 10552861879 No Longer Active Haridner Hernandez DO Active PREDNISONE 10 MG TAB 1 tablet daily for COPD PREDNISONE 48471274803 Active Ciera Pimentel Active PROAIR HFA 108 (90 BASE) MCG/ACT AERS 2 puffs four times a day as needed 2012 ALBUTEROL SULFATE 24804721313 Active Harinder Hernandez DO Active FLOVENT HFA 110 MCG/ACT AERO 2 puffs inhaled b.i.d. FLUTICASONE PROPIONATE HFA 48064949231 Active Kortney Mccain Active ACIPHEX 20 MG TBEC 1 tab po daily RABEPRAZOLE SODIUM 54019224416 Active Kaylah Newberry Active CLONAZEPAM 0.5 MG TABS 1 tab po daily CLONAZEPAM 0.5 MG TABS 282535 CLONAZEPAM Inactive PREDNISONE 20 MG TAB 3 tabs today, then 1 tab twice daily for 3 day, then one daily for three days PREDNISONE 20 MG TAB 186897 PREDNISONE Inactive PREDNISONE 20 MG TAB 2 tabs daily for 4 days, 1 tab daily for 4 days, 1/2 tab daily for 4 days PREDNISONE 20 MG TAB 719902 PREDNISONE Inactive PREDNISONE 10 MG TABS 1 tab po daily PREDNISONE 10 MG TABS 446331 PREDNISONE Inactive TYLENOL EXTRA STRENGTH 500 MG TABS as needed TYLENOL EXTRA STRENGTH 500 MG TABS 754018 ACETAMINOPHEN Inactive MUPIROCIN 2 % OINT apply to affected area BID x 14 days MUPIROCIN 2 % OINT 176279 MUPIROCIN Inactive MONTELUKAST SODIUM 10 MG TABS 1 tab po in the evening MONTELUKAST SODIUM 10 MG TABS 20010818 MONTELUKAST SODIUM Inactive BENZONATATE 100 MG CAPS 1 cap po TID PRN BENZONATATE 100 MG CAPS 743365 BENZONATATE Inactive NEURONTIN 300 MG CAP 1 cap by mouth three times daily for restless leg 06/22 NEURONTIN 300 MG CAP 637642 GABAPENTIN Inactive LEVAQUIN 500 MG TAB 1 tablet by mouth daily LEVAQUIN 500 MG TAB 126513 LEVOFLOXACIN Inactive PREDNISONE 20 MG TAB 1 TID x 2 days, then 1 BID x 3 days, then 1 Daily x 3 days, then stop PREDNISONE 20 MG TAB 838771 PREDNISONE Inactive POTASSIUM CHLORIDE ER 10 MEQ CR-TABS take 1 tab po daily POTASSIUM CHLORIDE ER 10 MEQ CR-TABS POTASSIUM CHLORIDE Inactive PREDNISONE 20 MG TAB 1 tab twice daily for 3 day, then one daily for three days PREDNISONE 20 MG TAB 461279 PREDNISONE Inactive TESSALON PERLES 100 MG CAP 1 to 2 tablets by mouth 3 times daily as needed for cough TESSALON PERLES 100 MG CAP 357730 BENZONATATE Inactive POTASSIUM CHLORIDE CR 10 MEQ CPCR 1 capsule by mouth daily 02/14 POTASSIUM CHLORIDE CR 10 MEQ CPCR POTASSIUM CHLORIDE Inactive NITROSTAT 0.4 MG SUBL 1 tab under tongueas needed for chest pain ( may take 3 total, 5 min apart, then call 911) NITROSTAT 0.4 MG SUBL 390071 NITROGLYCERIN Inactive LOVASTATIN 40 MG TABS 1 pill by mouth nightly for cholesterol LOVASTATIN 40 MG TABS 077081 LOVASTATIN Inactive CEFDINIR 300 MG ORAL CAPS take 1 cap po bid x 10 days CEFDINIR 300 MG ORAL CAPS 933952 CEFDINIR Inactive ACEBUTOLOL HCL 200 MG CAPS 1 cap in the morning and 2 caps in the evening ACEBUTOLOL HCL 200 MG CAPS 238728 ACEBUTOLOL HCL Inactive VENTOLIN HFA 108 (90 BASE) MCG/ACT AERS 2 -4 puffs four times a day PRN 2013 VENTOLIN HFA 108 (90 BASE) MCG/ACT AERS ALBUTEROL SULFATE Inactive LEVAQUIN 500 MG ORAL TABS Take 1 tab po daily x 8 days LEVAQUIN 500 MG ORAL TABS 473702 LEVOFLOXACIN Inactive PREDNISONE 20 MG TAB 2 tabs daily for 4 days, 1 tab daily for 4 days, 1/2 tab daily for 4 days PREDNISONE 20 MG TAB 122084 PREDNISONE Inactive LOVASTATIN 40 MG ORAL TABS Take 1 tab po every hs LOVASTATIN 40 MG ORAL TABS 135144 LOVASTATIN Inactive DILAUDID 2 MG ORAL TABS Take 1/2 tab po every 4 hours as needed for pain 2014 DILAUDID 2 MG ORAL TABS 593907 HYDROMORPHONE HCL Inactive AMITRIPTYLINE HCL 25 MG ORAL TABS 1 q hs prn AMITRIPTYLINE HCL 25 MG ORAL TABS 677319 AMITRIPTYLINE HCL Inactive MECLIZINE HCL 25 MG TAB 1 tablet three times daily for 3 days, then 1/2 tab three times daily for 3 days. MECLIZINE HCL 25 MG TAB 980658 MECLIZINE HCL Inactive AMLODIPINE BESYLATE 5 MG ORAL TABS Take 1 tab po daily AMLODIPINE BESYLATE 5 MG ORAL TABS 249035 AMLODIPINE BESYLATE Inactive TOPIRAMATE 25 MG TABS 1 tab po BID TOPIRAMATE 25 MG TABS 357913 TOPIRAMATE Inactive PREDNISONE 20 MG TAB 1 tablet twice daily for 2 days, then 1 tablet once daily for 2 days PREDNISONE 20 MG TAB 963671 PREDNISONE Inactive PREDNISONE 20 MG TAB 1 tab twice daily for 3 day, then one daily for three days PREDNISONE 20 MG TAB 472154 PREDNISONE Inactive NIFEDIPINE ER 30 MG ORAL [id number] 1 daily NIFEDIPINE ER 30 MG ORAL [id number] NIFEDIPINE Inactive AMLODIPINE BESYLATE 5 MG TABS 1 tablet by mouth daily AMLODIPINE BESYLATE 5 MG TABS 813236 AMLODIPINE BESYLATE Inactive AZITHROMYCIN 250 MG TABS 2 po qd x 1 day, then 1 po qd x 4 days AZITHROMYCIN 250 MG TABS 1605961 AZITHROMYCIN Inactive AZITHROMYCIN 250 MG TABS 2 po qd x 1 day, then 1 po qd x 4 days AZITHROMYCIN 250 MG TABS 6779999 AZITHROMYCIN Inactive PREDNISONE 20 MG TAB 2 po qd x 5 days PREDNISONE 20 MG TAB 480424 PREDNISONE Inactive Vital Signs Date Name Value [...] Panel - Chemistry sodium, serum 137 mmol/L 399-733 5290/01/03 potassium, serum 3.4 mmol/L 3.5-5.2 chloride, serum [...] Magnesium - Chemistry cholesterol, serum 180 mg/dL 625-165 5950/08/08 triglyceride, serum, fasting 92 mg/dL 30-200 HDL cholesterol, serum 66 mg/dL 32-96 LDL cholesterol, serum 96 mg/dL 0-130 sodium, serum 142 mmol/L 645-510 4934/08/08 carbon dioxide, venous blood 27.4 mmol/L 21.0-32.0 [...] 10.0-20.0 Encounters Code Encounter Date Provider Facility CPT-62921 Level 4 Est. Patient 10:19:23 CDT Harinder Cr [facility] CPT-39526 Level 3 Est. Patient 09:58:58 CDT Harinder Cr [facility] CPT-30473 Level 3 Est. Patient 12:37:21 CDT Harinder Cr [facility] CPT-34341 Level 3 Est. Patient 18:37:17 CDT Harinder Cr [facility] CPT-04480 Level 4 Est. Patient 11:15:54 CDT Nettie Newberry [facility] CPT-62582 Level 3 Est. Patient 16:42:24 CDT Harinder Cr [facility] CPT-68650 Level 3 Est. Patient 15:03:36 CDT Harinder Cr [facility] CPT-68188 Level 3 Est. Patient 15:03:20 CDT Harinder Cr [facility] CPT-26048 Level 3 Est. Patient 12:14:[address] [facility] CPT-48618 Level 3 Est. Patient 13:47:[address] [facility] CPT-25779 Level 3 Est. Patient 14:08:[address] [facility] CPT-35980 Level 3 Est. Patient 10:07:[address] [facility] CPT-35166 Level 3 Est. Patient 10:06:[address] [facility] CPT-12094 Level 3 Est. Patient 15:53:29 CDT Jae Morgan [facility] CPT-63829 Level 3 Est. Patient 17:19:[address] [facility] CPT-29034 Level 3 Est. Patient 11:13:[address] [facility] CPT-47589 Level 3 Est. Patient 09:03:58 CDT Harinder Hernandez [facility] CPT-31535 Level 3 Est. Patient 14:46:45 [employer] [address] [facility] CPT-23135 Level 3 Est. Patient 09:35:49 REED [employer] Harinder Hernandez [facility] CPT-93048 Level 3 Est. Patient 09:29:37 REED [employer]KER Harinder Hernandez [facility] CPT-70088 Level 3 Est. Patient 15:51:[address] [facility] CPT-23530 Level 3 Est. Patient 18:13:13 CDT Harinder Shaye Hernandez [facility] CPT-96010 Level 3 Est. Patient 10:44:19 CDT [address] [facility] CPT-80116 Level 4 Est. Patient 10:07:19 [employer]ED [employer] Harinder Hernandez [facility] CPT-18103 Level 3 Est. Patient 15:59:32 REED MAKER Harinder Cr [facility] Procedures Code Procedure Name Date Entry Date Standard Description CPT-60030 Hip, complete, 2-3 views - XRAY USE ONLY 10:28:40 CDT CPT-03956 BMP - LAB USE ONLY 16:45:09 [employer] CPT-45321 Port a cath flush 12:00:13 REED MAKER CPT-TCMM Transitional Care Mgmt-Moderate 11:20:16 REED MAKER CPT-39662 First Vx - Ix admin for Medicare patients 17:35:15 CDT CPT-76404 Fluzone Preservative Free Intramuscular Suspension 17:35 :15 CDT CPT-65438 Microalbumin - LAB USE ONLY 11:52:05 CDT CPT-TCMM Transitional Care Mgmt-Moderate 11:33:57 CDT CPT-13603 No Charge Offi Visit 14:11:29 CDT CPT-97754 Magnesium - LAB USE ONLY 10:45:44 CDT CPT-50197 Lipid - LAB USE ONLY 10:45:44 CDT CPT-62827 CBC - LAB USE ONLY 10:45:44 CDT CPT-76937 Venipuncture Draw Fee 10:45:43 CDT CPT-62714 Venipuncture Draw Fee 18:21:27 CDT CPT-JTINJ Asp/Joint Injection 18:38:04 CDT CPT-80887 Immunization Each Additional Inj 17:38:04 CDT CPT-28081 Immunization Single Admin 17:38:04 CDT CPT-88600 Prevnar 13 17:38:04 CDT CPT-77123 Fluzone Quadrivalent preservative free (>=3yrs.) 17:38: 04 CDT CPT-67071 No Charge Offi Visit 11:14:03 CDT CPT-74037 Chest 2V Frontal and Lat 14:00:18 CDT CPT-OV Office Visit 16:10:28 CDT CPT-JTINJ Asp/Joint Injection 09:03:57 CDT CPT-Cryo Cryotherapy 09:35:49 REED MAKER CPT-JTINJ Asp/Joint Injection 09:34:45 REED MAKER CPT-J2930 Solu Medrol 125 mg (Methyl Prednisolone Sodium Succinate) 20:37:27 CDT CPT-58441 Abx/Therapy Injection 20:37:27 CDT CPT-20038 Port a cath flush 08:15:51 CDT CPT-50969 Port a cath flush 09:54:16 CDT CPT-37737 Port a cath flush 09:38:02 CDT CPT-94743 Port a cath flush 11:00:27 REED [employer]KER
--- OUTSIDE RECORDS SUMMARY | 2017-12-29 04:31 | XMS REPORT | Clinical Summary ---
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 NIFEDIPINE 37081204164 Active Harinder Hernandez DO Active AMLODIPINE BESYLATE 5 MG TABS 1 tablet by mouth daily AMLODIPINE BESYLATE 19984389876 No Longer Active Harinder Hernandez DO Active TOPAMAX 25 MG ORAL TABS 1 tab po BID TOPIRAMATE 19328883211 Active Kortney Mccain Active FLUTICASONE PROPIONATE 50 MCG/ACT SUSP 2 sprays per nostril daily PRN Allergies FLUTICASONE PROPIONATE 41689325231 Active Kortney Mccain Active NIFEDIPINE ER 30 MG ORAL [id number] 1 daily NIFEDIPINE 67131208768 No Longer Active Harinder Hernandez DO Active POTASSIUM CHLORIDE 20 MEQ ORAL PACK Take 1 tablet by mouth daily POTASSIUM CHLORIDE 74381871448 Active Ciera Pimentel Active FLOVENT HFA 110 MCG/ACT AERO 2 puffs inhaled b.i.d. FLUTICASONE PROPIONATE HFA 82706797457 Active Harinder Hernandez DO Active POTASSIUM CHLORIDE CR 10 MEQ CPCR 1 capsule by mouth daily POTASSIUM CHLORIDE 71931590683 Active Harinder Hernandez DO Active EPIPEN 2-BRUNA 0.3 MG/0.3ML INJ SOAJ 1 INJ NEEDED EPINEPHRINE 32353473202 Active Harinder Hernandez DO Active PREDNISONE 20 MG TAB 1 tab twice daily for 3 day, then one daily for three days PREDNISONE 78684838975 No Longer Active Harinder Hernandez DO Active PREDNISONE 20 MG TAB 1 tablet twice daily for 2 days, then 1 tablet once daily for 2 days PREDNISONE 69153898922 No Longer Active Harinder Hernandez DO Active ASMANEX 120 METERED DOSES 220 MCG/INH INH AEPB 2 puffs orally twice daily MOMETASONE FUROATE 84944596161 Active Jeri Sosa RPT,RMA Active TOPIRAMATE 25 MG TABS 1 tab po BID TOPIRAMATE 90288677839 No Longer Active Nettie Newberry APRN Active AMLODIPINE BESYLATE 5 MG ORAL TABS Take 1 tab po daily AMLODIPINE BESYLATE 34879003205 No Longer Active Nettie Newberry APRN Active MECLIZINE HCL 25 MG TAB 1 tablet three times daily for 3 days, then 1/2 tab three times daily for 3 days. MECLIZINE HCL 51276911121 No Longer Active Nettie Newberry APRN Active AMITRIPTYLINE HCL 25 MG ORAL TABS 1 q hs prn AMITRIPTYLINE HCL 50117968564 No Longer Active Nettie Newberry APRN Active DILAUDID 2 MG ORAL TABS Take 1/2 tab po every 4 hours as needed for pain 2014 HYDROMORPHONE HCL 96615979755 No Longer Active Nettie Newberry APRN Active CLOPIDOGREL BISULFATE 75 MG ORAL TABS 1 tab by mouth once daily CLOPIDOGREL BISULFATE 84257614009 Active Harinder Hernandez DO Active ATORVASTATIN CALCIUM 10 MG ORAL TABS 1 at bedtime ATORVASTATIN CALCIUM 67507764322 Active Tawnya Pardo MA Active LOVASTATIN 40 MG ORAL TABS Take 1 tab po every hs LOVASTATIN 29992328573 No Longer Active Harinder Hernandez DO Active PREDNISONE 20 MG TAB 2 tabs daily for 4 days, 1 tab daily for 4 days, 1/2 tab daily for 4 days PREDNISONE 33874018511 No Longer Active Harinder Hernandez DO Active LEVAQUIN 500 MG ORAL TABS Take 1 tab po daily x 8 days LEVOFLOXACIN 72976979942 No Longer Active Harinder Hernandez DO Active VENTOLIN HFA 108 (90 BASE) MCG/ACT AERS 2 -4 puffs four times a day PRN 2013 ALBUTEROL SULFATE 68464552514 No Longer Active Jeri Sosa RPT,RMA Active ACEBUTOLOL HCL 200 MG CAPS 1 cap in the morning and 2 caps in the evening ACEBUTOLOL HCL 96731074292 No Longer Active Harinder Hernandez DO Active CEFDINIR 300 MG ORAL CAPS take 1 cap po bid x 10 days CEFDINIR 12709858790 No Longer Active Harinder Hernandez DO Active LOVASTATIN 40 MG TABS 1 pill by mouth nightly for cholesterol LOVASTATIN 70926591080 No Longer Active Nettie Newberry APRN Active NITROSTAT 0.4 MG SUBL 1 tab under tongueas needed for chest pain ( may take 3 total, 5 min apart, then call 911) NITROGLYCERIN 05456206607 No Longer Active Nettie Newberry APRN Active POTASSIUM CHLORIDE CR 10 MEQ CPCR 1 capsule by mouth daily 02/14 POTASSIUM CHLORIDE 49709712182 No Longer Active Nettie Newberry APRN Active TESSALON PERLES 100 MG CAP 1 to 2 tablets by mouth 3 times daily as needed for cough BENZONATATE 42780471834 No Longer Active Nettie Newberry APRN Active THEOPHYLLINE ER 200 MG ORAL [id number] Take 1 tab every 12 hours THEOPHYLLINE 51988910666 Active Tawnya Pardo MA Active PREDNISONE 20 MG TAB 2 po qd x 5 days PREDNISONE 65472246712 No Longer Active Jae Morgan MD Active AZITHROMYCIN 250 MG TABS 2 po qd x 1 day, then 1 po qd x 4 days AZITHROMYCIN 57119623794 No Longer Active Jae Morgan MD Active PREDNISONE 20 MG TAB 1 tab twice daily for 3 day, then one daily for three days PREDNISONE 35471735022 No Longer Active Jae Morgan MD Active SINGULAIR 10 MG TABS 1 pill by mouth every evening for breathing. MONTELUKAST SODIUM 72869295209 Active Tawnya Pardo MA Active TYLENOL 325 MG TAB 3 by mouth q4h as needed ACETAMINOPHEN 90882951537 Active Harinder Hernandez DO Active POTASSIUM CHLORIDE ER 10 MEQ CR-TABS take 1 tab po daily POTASSIUM CHLORIDE 69347693406 No Longer Active Harinder Hernandez DO Active PREDNISONE 20 MG TAB 1 TID x 2 days, then 1 BID x 3 days, then 1 Daily x 3 days, then stop PREDNISONE 84015267423 No Longer Active Jillina Frazell VEGETABLE HANDLER Active LEVAQUIN 500 MG TAB 1 tablet by mouth daily LEVOFLOXACIN 52528644422 No Longer Active Jillina Frazell VEGETABLE HANDLER Active NEURONTIN 300 MG CAP 1 cap by mouth three times daily for restless leg 06/22 GABAPENTIN 97520256749 No Longer Active Harinder Hernandez DO Active BENZONATATE 100 MG CAPS 1 cap po TID PRN BENZONATATE 30333393014 No Longer Active Harinder Hernandez DO Active MONTELUKAST SODIUM 10 MG TABS 1 tab po in the evening MONTELUKAST SODIUM 62527588727 No Longer Active Harinder Hernandez DO Active MUPIROCIN 2 % OINT apply to affected area BID x 14 days MUPIROCIN 26718650724 No Longer Active Harinder Hernandez DO Active TYLENOL EXTRA STRENGTH 500 MG TABS as needed ACETAMINOPHEN 73348026465 No Longer Active Harinder Hernandez DO Active PREDNISONE 10 MG TABS 1 tab po daily PREDNISONE 04407972995 No Longer Active Harinder Hernandez DO Active PREDNISONE 20 MG TAB 2 tabs daily for 4 days, 1 tab daily for 4 days, 1/2 tab daily for 4 days PREDNISONE 73798629418 No Longer Active Harinder Hernandez DO Active AZITHROMYCIN 250 MG TABS 2 po qd x 1 day, then 1 po qd x 4 days AZITHROMYCIN 65286515622 No Longer Active Harinder Hernandez DO Active PREDNISONE 20 MG TAB 3 tabs today, then 1 tab twice daily for 3 day, then one daily for three days PREDNISONE 44452288164 No Longer Active Harinder Hernandez DO Active NIFEDIAC CC 30 MG [id number] 1 tablet daily for raynaud's syndrome NIFEDIPINE 78719375222 No Longer Active Tawnya Pardo MA Active AMBIEN 10 MG TAB 1/2 tab by mouth at bedtime as needed for sleep ZOLPIDEM TARTRATE 74326493673 Active Kortney Mccain Active CLONAZEPAM 1 MG TABS 1 tablet at bedtime for insomnia and restless legs 09/14 CLONAZEPAM 89112704829 Active Harinder Hernandez DO Active CLONAZEPAM 0.5 MG TABS 1 tab po daily CLONAZEPAM 49225594398 No Longer Active Harinder Hernandez DO Active PREDNISONE 10 MG TAB 1 tablet daily for COPD PREDNISONE 10321458831 Active Ciera Pimentel Active PROAIR HFA 108 (90 BASE) MCG/ACT AERS 2 puffs four times a day as needed 2012 ALBUTEROL SULFATE 00710070051 Active Harinder Hernandez DO Active FLOVENT HFA 110 MCG/ACT AERO 2 puffs inhaled b.i.d. FLUTICASONE PROPIONATE HFA 10329899544 Active Kortney Mccain Active ACIPHEX 20 MG TBEC 1 tab po daily RABEPRAZOLE SODIUM 73061561154 Active Kaylah Newberry Active CLONAZEPAM 0.5 MG TABS 1 tab po daily CLONAZEPAM 0.5 MG TABS 190651 CLONAZEPAM Inactive PREDNISONE 20 MG TAB 3 tabs today, then 1 tab twice daily for 3 day, then one daily for three days PREDNISONE 20 MG TAB 748067 PREDNISONE Inactive PREDNISONE 20 MG TAB 2 tabs daily for 4 days, 1 tab daily for 4 days, 1/2 tab daily for 4 days PREDNISONE 20 MG TAB 390438 PREDNISONE Inactive PREDNISONE 10 MG TABS 1 tab po daily PREDNISONE 10 MG TABS 187280 PREDNISONE Inactive TYLENOL EXTRA STRENGTH 500 MG TABS as needed TYLENOL EXTRA STRENGTH 500 MG TABS 856720 ACETAMINOPHEN Inactive MUPIROCIN 2 % OINT apply to affected area BID x 14 days MUPIROCIN 2 % OINT 837949 MUPIROCIN Inactive MONTELUKAST SODIUM 10 MG TABS 1 tab po in the evening MONTELUKAST SODIUM 10 MG TABS 20010818 MONTELUKAST SODIUM Inactive BENZONATATE 100 MG CAPS 1 cap po TID PRN BENZONATATE 100 MG CAPS 641533 BENZONATATE Inactive NEURONTIN 300 MG CAP 1 cap by mouth three times daily for restless leg 06/22 NEURONTIN 300 MG CAP 054326 GABAPENTIN Inactive LEVAQUIN 500 MG TAB 1 tablet by mouth daily LEVAQUIN 500 MG TAB 628524 LEVOFLOXACIN Inactive PREDNISONE 20 MG TAB 1 TID x 2 days, then 1 BID x 3 days, then 1 Daily x 3 days, then stop PREDNISONE 20 MG TAB 514569 PREDNISONE Inactive POTASSIUM CHLORIDE ER 10 MEQ CR-TABS take 1 tab po daily POTASSIUM CHLORIDE ER 10 MEQ CR-TABS POTASSIUM CHLORIDE Inactive PREDNISONE 20 MG TAB 1 tab twice daily for 3 day, then one daily for three days PREDNISONE 20 MG TAB 289368 PREDNISONE Inactive TESSALON PERLES 100 MG CAP 1 to 2 tablets by mouth 3 times daily as needed for cough TESSALON PERLES 100 MG CAP 521561 BENZONATATE Inactive POTASSIUM CHLORIDE CR 10 MEQ CPCR 1 capsule by mouth daily 02/14 POTASSIUM CHLORIDE CR 10 MEQ CPCR POTASSIUM CHLORIDE Inactive NITROSTAT 0.4 MG SUBL 1 tab under tongueas needed for chest pain ( may take 3 total, 5 min apart, then call 911) NITROSTAT 0.4 MG SUBL 264539 NITROGLYCERIN Inactive LOVASTATIN 40 MG TABS 1 pill by mouth nightly for cholesterol LOVASTATIN 40 MG TABS 016435 LOVASTATIN Inactive CEFDINIR 300 MG ORAL CAPS take 1 cap po bid x 10 days CEFDINIR 300 MG ORAL CAPS 837954 CEFDINIR Inactive ACEBUTOLOL HCL 200 MG CAPS 1 cap in the morning and 2 caps in the evening ACEBUTOLOL HCL 200 MG CAPS 995065 ACEBUTOLOL HCL Inactive VENTOLIN HFA 108 (90 BASE) MCG/ACT AERS 2 -4 puffs four times a day PRN 2013 VENTOLIN HFA 108 (90 BASE) MCG/ACT AERS ALBUTEROL SULFATE Inactive LEVAQUIN 500 MG ORAL TABS Take 1 tab po daily x 8 days LEVAQUIN 500 MG ORAL TABS 118113 LEVOFLOXACIN Inactive PREDNISONE 20 MG TAB 2 tabs daily for 4 days, 1 tab daily for 4 days, 1/2 tab daily for 4 days PREDNISONE 20 MG TAB 793843 PREDNISONE Inactive LOVASTATIN 40 MG ORAL TABS Take 1 tab po every hs LOVASTATIN 40 MG ORAL TABS 408791 LOVASTATIN Inactive DILAUDID 2 MG ORAL TABS Take 1/2 tab po every 4 hours as needed for pain 2014 DILAUDID 2 MG ORAL TABS 462060 HYDROMORPHONE HCL Inactive AMITRIPTYLINE HCL 25 MG ORAL TABS 1 q hs prn AMITRIPTYLINE HCL 25 MG ORAL TABS 833050 AMITRIPTYLINE HCL Inactive MECLIZINE HCL 25 MG TAB 1 tablet three times daily for 3 days, then 1/2 tab three times daily for 3 days. MECLIZINE HCL 25 MG TAB 808261 MECLIZINE HCL Inactive AMLODIPINE BESYLATE 5 MG ORAL TABS Take 1 tab po daily AMLODIPINE BESYLATE 5 MG ORAL TABS 570224 AMLODIPINE BESYLATE Inactive TOPIRAMATE 25 MG TABS 1 tab po BID TOPIRAMATE 25 MG TABS 542210 TOPIRAMATE Inactive PREDNISONE 20 MG TAB 1 tablet twice daily for 2 days, then 1 tablet once daily for 2 days PREDNISONE 20 MG TAB 876288 PREDNISONE Inactive PREDNISONE 20 MG TAB 1 tab twice daily for 3 day, then one daily for three days PREDNISONE 20 MG TAB 857159 PREDNISONE Inactive NIFEDIPINE ER 30 MG ORAL [id number] 1 daily NIFEDIPINE ER 30 MG ORAL [id number] NIFEDIPINE Inactive AMLODIPINE BESYLATE 5 MG TABS 1 tablet by mouth daily AMLODIPINE BESYLATE 5 MG TABS 117872 AMLODIPINE BESYLATE Inactive AZITHROMYCIN 250 MG TABS 2 po qd x 1 day, then 1 po qd x 4 days AZITHROMYCIN 250 MG TABS 7197920 AZITHROMYCIN Inactive AZITHROMYCIN 250 MG TABS 2 po qd x 1 day, then 1 po qd x 4 days AZITHROMYCIN 250 MG TABS 4353928 AZITHROMYCIN Inactive PREDNISONE 20 MG TAB 2 po qd x 5 days PREDNISONE 20 MG TAB 744453 PREDNISONE Inactive Vital Signs Date Name Value [...] mg/dL 7-18 creatinine, serum 0.82 mg/dL 0.55-1.30 blood glucose 87 mg/dL 65-110 carbon dioxide, venous blood 29.2 mmol/L 21.0-32.0 chloride, serum 102 mmol/L 98-107 potassium, serum 3.4 mmol/L 3.5-5.2 sodium, serum 137 mmol/L 136-145 Lab Report: CBC - Hematology leukocyte count, [...] Magnesium - Chemistry cholesterol, serum 180 mg/dL 347-983 8827/08/08 triglyceride, serum, fasting 92 mg/dL 30-200 HDL cholesterol, serum 66 mg/dL 32-96 LDL cholesterol, serum 96 mg/dL 0-130 sodium, serum 142 mmol/L 983-535 1630/08/08 carbon dioxide, venous blood 27.4 mmol/L 21.0-32.0 [...] 10.0-20.0 Encounters Code Encounter Date Provider Facility CPT-63468 Level 4 Est. Patient 10:19:23 CDT Harinder Cr [facility] CPT-93585 Level 3 Est. Patient 09:58:58 CDT Harinder Cr [facility] CPT-65834 Level 3 Est. Patient 12:37:21 CDT Harinder Cr [facility] CPT-96705 Level 3 Est. Patient 18:37:17 CDT Harinder Cr [facility] CPT-80168 Level 4 Est. Patient 11:15:[address] [facility] [place] CPT-38979 Level 3 Est. Patient 16:42:24 CDT Harinder Cr [facility] CPT-55948 Level 3 Est. Patient 15:03:36 CDT Harinder Cr [facility] CPT-20591 Level 3 Est. Patient 15:03:20 CDT Harinder Cr [facility] CPT-75243 Level 3 Est. Patient 12:14:34 CDT Harinder Hernandez [facility] CPT-78625 Level 3 Est. Patient 13:47:15 CDT Harinder Hernandez [facility] CPT-81976 Level 3 Est. Patient 14:08:24 CDT Harinder Hernandez [facility] CPT-31383 Level 3 Est. Patient 10:07:15 CDT Harinder Hernandez [facility] CPT-83248 Level 3 Est. Patient 10:06:59 CDT Harinder Hernandez [facility] CPT-23069 Level 3 Est. Patient 15:53:29 CDT Jae Morgan [facility] CPT-54893 Level 3 Est. Patient 17:19:04 CDT Harinder Hernandez [facility] CPT-99960 Level 3 Est. Patient 11:13:01 CDT Harinder Hernandez [facility] CPT-02698 Level 3 Est. Patient 09:03:58 CDT Harinder Hernandez [facility] CPT-78822 Level 3 Est. Patient 14:46:45 TEXTILE TECHNOLOGIST Harinder Hernandez [facility] CPT-75443 Level 3 Est. Patient 09:35:49 TEXTILE TECHNOLOGIST Harinder Hernandez [facility] CPT-51487 Level 3 Est. Patient 09:29:37 TEXTILE TECHNOLOGIST Harinder Hernandez [facility] CPT-22358 Level 3 Est. Patient 15:51:07 CDT Harinder Hernandez [facility] CPT-16494 Level 3 Est. Patient 18:13:13 CDT Harinder Shaye Hernandez [facility] CPT-34277 Level 3 Est. Patient 10:44:19 CDT Harinder Cr David [facility] CPT-24555 Level 4 Est. Patient 10:07:19 TEXTILE TECHNOLOGIST Harinder Hernandez [facility] CPT-92539 Level 3 Est. Patient 15:59:32 TEXTILE TECHNOLOGIST Harinder Cr [facility] Procedures Code Procedure Name Date Entry Date Standard Description CPT-86098 Hip, complete, 2-3 views - XRAY USE ONLY 10:28:40 CDT CPT-68909 BMP - LAB USE ONLY 16:45:09 TEXTILE TECHNOLOGIST CPT-44913 Port a cath flush 12:00:13 TEXTILE TECHNOLOGIST CPT-TCMM Transitional Care Mgmt-Moderate 11:20:16 TEXTILE TECHNOLOGIST CPT-95455 First Vx - Ix admin for Medicare patients 17:35:15 CDT CPT-95108 Fluzone Preservative Free Intramuscular Suspension 17:35 :15 CDT CPT-15773 Microalbumin - LAB USE ONLY 11:52:05 CDT CPT-TCMM Transitional Care Mgmt-Moderate 11:33:57 CDT CPT-58179 No Charge Offi Visit 14:11:29 CDT CPT-29983 Magnesium - LAB USE ONLY 10:45:44 CDT CPT-90961 Lipid - LAB USE ONLY 10:45:44 CDT CPT-06478 CBC - LAB USE ONLY 10:45:44 CDT CPT-90234 Venipuncture Draw Fee 10:45:43 CDT CPT-22229 Venipuncture Draw Fee 18:21:27 CDT CPT-JTINJ Asp/Joint Injection 18:38:04 CDT CPT-63357 Immunization Each Additional Inj 17:38:04 CDT CPT-37926 Immunization Single Admin 17:38:04 CDT CPT-65892 Prevnar 13 17:38:04 CDT CPT-90274 Fluzone Quadrivalent preservative free (>=3yrs.) 17:38: 04 CDT CPT-42297 No Charge Offi Visit 11:14:03 CDT CPT-93191 Chest 2V Frontal and Lat 14:00:18 CDT CPT-OV Office Visit 16:10:28 CDT CPT-JTINJ Asp/Joint Injection 09:03:57 CDT CPT-Cryo Cryotherapy 09:35:49 TEXTILE TECHNOLOGIST CPT-JTINJ Asp/Joint Injection 09:34:45 TEXTILE TECHNOLOGIST CPT-J2930 Solu Medrol 125 mg (Methyl Prednisolone Sodium Succinate) 20:37:27 CDT CPT-58681 Abx/Therapy Injection 20:37:27 CDT CPT-50149 Port a cath flush 08:15:51 CDT CPT-12489 Port a cath flush 09:54:16 CDT CPT-34691 Port a cath flush 09:38:02 CDT CPT-37662 Port a cath flush 11:00:27 TEXTILE TECHNOLOGIST
--- OUTSIDE RECORDS SUMMARY | 2017-12-29 04:32 | XMS REPORT | Clinical Summary ---
Author Author Admin, QIE Organization [facility] Address Unknown Phone Unavailable Allergies, Adverse [...] neoplasms of colon Pneumonia 486 Resolved Harinder Cr David DO Pneumonia , organism unspecified Bacteremia [...] Hernandez DO Bacteremia ICD-790.7 Inactive Harinder Shaye Hernandez DO 10/02 Clostridium difficile colitis ICD-008.45 [...] then one daily for three days PREDNISONE [id number] No Longer Active Harinder W David DO Active PREDNISONE 20 MG TAB 1 tablet twice daily for 2 days, then 1 tablet once daily for 2 days PREDNISONE 66648890912 No Longer Active Harinder Hernandez DO Active ASMANEX 120 METERED DOSES 220 MCG/INH INH AEPB 2 puffs orally twice daily MOMETASONE FUROATE 82400374692 Active Jeri Sosa RPT,RMA Active NIFEDIPINE ER 30 MG ORAL [id number] 1 daily NIFEDIPINE 54595631294 Active Tawnya Pardo MA Active TOPIRAMATE 25 MG TABS 1 tab po BID TOPIRAMATE 78360108846 No Longer Active Nettie Newberry APRN Active AMLODIPINE BESYLATE 5 MG ORAL TABS Take 1 tab po daily AMLODIPINE BESYLATE 63470240564 No Longer Active Nettie Newberry APRN Active MECLIZINE HCL 25 MG TAB 1 tablet three times daily for 3 days, then 1/2 tab three times daily for 3 days. MECLIZINE HCL 07533076025 No Longer Active Nettie Newberry APRN Active AMITRIPTYLINE HCL 25 MG ORAL TABS 1 q hs prn AMITRIPTYLINE HCL 33511728774 No Longer Active Nettie Newberry APRN Active DILAUDID 2 MG ORAL TABS Take 1/2 tab po every 4 hours as needed for pain 2014 HYDROMORPHONE HCL 04643994887 No Longer Active Nettie Newberry APRN Active CLOPIDOGREL BISULFATE 75 MG ORAL TABS 1 tab by mouth once daily CLOPIDOGREL BISULFATE 26522202046 Active Jeri Sosa RPT,RMA Active ATORVASTATIN CALCIUM 10 MG ORAL TABS 1 at bedtime ATORVASTATIN CALCIUM 80388477057 Active Jeri Sosa RPT,RMA Active LOVASTATIN 40 MG ORAL TABS Take 1 tab po every hs LOVASTATIN 61883431836 No Longer Active Harinder Hernandez DO Active PREDNISONE 20 MG TAB 2 tabs daily for 4 days, 1 tab daily for 4 days, 1/2 tab daily for 4 days PREDNISONE 96160381049 No Longer Active Harinder Hernandez DO Active LEVAQUIN 500 MG ORAL TABS Take 1 tab po daily x 8 days LEVOFLOXACIN 56471053612 No Longer Active Harinder Hernandez DO Active VENTOLIN HFA 108 (90 BASE) MCG/ACT AERS 2 -4 puffs four times a day PRN 2013 ALBUTEROL SULFATE 06157110111 No Longer Active Jeri Sosa RPT,RMA Active ACEBUTOLOL HCL 200 MG CAPS 1 cap in the morning and 2 caps in the evening ACEBUTOLOL HCL 72125243749 No Longer Active Harinder Hernandez DO Active CEFDINIR 300 MG ORAL CAPS take 1 cap po bid x 10 days CEFDINIR 96252201714 No Longer Active Harinder Hernandez DO Active LOVASTATIN 40 MG TABS 1 pill by mouth nightly for cholesterol LOVASTATIN 77910590976 No Longer Active Nettie Newberry APRN Active NITROSTAT 0.4 MG SUBL 1 tab under tongueas needed for chest pain ( may take 3 total, 5 min apart, then call 911) NITROGLYCERIN 97235643030 No Longer Active Nettie Newberry APRN Active POTASSIUM CHLORIDE CR 10 MEQ CPCR 1 capsule by mouth daily 02/14 POTASSIUM CHLORIDE 79007841108 No Longer Active Nettie Newberry APRN Active TESSALON PERLES 100 MG CAP 1 to 2 tablets by mouth 3 times daily as needed for cough BENZONATATE 13033797414 No Longer Active Nettie Newberry APRN Active THEOPHYLLINE ER 200 MG ORAL [id number] Take 1 tab every 12 hours THEOPHYLLINE 72700395419 Active Jeri Sosa RPT,RMA Active PREDNISONE 20 MG TAB 2 po qd x 5 days PREDNISONE 58289839268 No Longer Active Jae Morgan MD Active AZITHROMYCIN 250 MG TABS 2 po qd x 1 day, then 1 po qd x 4 days AZITHROMYCIN 26680266104 No Longer Active Jae Morgan MD Active PREDNISONE 20 MG TAB 1 tab twice daily for 3 day, then one daily for three days PREDNISONE 18541265256 No Longer Active Jae Morgan MD Active SINGULAIR 10 MG TABS 1 pill by mouth every evening for breathing. MONTELUKAST SODIUM 34422475434 Active Tawnya Pardo MA Active TYLENOL 325 MG TAB 3 by mouth q4h as needed ACETAMINOPHEN 69219867831 Active Harinder Hernandez DO Active POTASSIUM CHLORIDE ER 10 MEQ CR-TABS take 1 tab po daily POTASSIUM CHLORIDE 04296960355 No Longer Active Harinder Hernandez DO Active PREDNISONE 20 MG TAB 1 TID x 2 days, then 1 BID x 3 days, then 1 Daily x 3 days, then stop PREDNISONE 56447991621 No Longer Active Jillina Frazell [employer] Active LEVAQUIN 500 MG TAB 1 tablet by mouth daily LEVOFLOXACIN 00411830345 No Longer Active Jillina Frazell [employer] Active NEURONTIN 300 MG CAP 1 cap by mouth three times daily for restless leg 06/22 GABAPENTIN 90501565924 No Longer Active Harinder Hernandez DO Active BENZONATATE 100 MG CAPS 1 cap po TID PRN BENZONATATE 52294225119 No Longer Active Harinder Hernandez DO Active MONTELUKAST SODIUM 10 MG TABS 1 tab po in the evening MONTELUKAST SODIUM 73086770223 No Longer Active Harinder Hernandez DO Active MUPIROCIN 2 % OINT apply to affected area BID x 14 days MUPIROCIN 81637566595 No Longer Active Harinder Hernandez DO Active TYLENOL EXTRA STRENGTH 500 MG TABS as needed ACETAMINOPHEN 49050340294 No Longer Active Harinder Hernandez DO Active PREDNISONE 10 MG TABS 1 tab po daily PREDNISONE 43629879277 No Longer Active Harinder Hernandez DO Active PREDNISONE 20 MG TAB 2 tabs daily for 4 days, 1 tab daily for 4 days, 1/2 tab daily for 4 days PREDNISONE 83282926115 No Longer Active Harinder Hernandez DO Active AZITHROMYCIN 250 MG TABS 2 po qd x 1 day, then 1 po qd x 4 days AZITHROMYCIN 04576470774 No Longer Active Harinder Hernandez DO Active PREDNISONE 20 MG TAB 3 tabs today, then 1 tab twice daily for 3 day, then one daily for three days PREDNISONE 87225212542 No Longer Active Harinder Hernandez DO Active NIFEDIAC CC 30 MG [id number] 1 tablet daily for raynaud's syndrome NIFEDIPINE 67130315964 No Longer Active Tawnya Pardo MA Active AMBIEN 10 MG TAB 1/2 tab by mouth at bedtime as needed for sleep ZOLPIDEM TARTRATE 58045204527 Active Harinder Hernandez DO Active CLONAZEPAM 1 MG TABS 1 tablet at bedtime for insomnia and restless legs 09/14 CLONAZEPAM 93981879325 Active Jeri Sosa RPT,RMA Active CLONAZEPAM 0.5 MG TABS 1 tab po daily CLONAZEPAM 72624874535 No Longer Active Harinder Hernandez DO Active PREDNISONE 10 MG TAB 1 tablet daily for COPD PREDNISONE 92582300249 Active Tawnya Pardo MA Active PROAIR HFA 108 (90 BASE) MCG/ACT AERS 2 puffs four times a day as needed 2012 ALBUTEROL SULFATE 96155613276 Active Tawnya Pardo MA Active FLOVENT HFA 110 MCG/ACT AERO 2 puffs inhaled b.i.d. FLUTICASONE PROPIONATE HFA 12011464043 Active Tawnya Pardo MA Active EPIPEN 0.3 MG/0.3ML URIEL DIRECTED EPINEPHRINE Active Jeri Sosa RPT,RMA Active ACIPHEX 20 MG TBEC 1 tab po daily RABEPRAZOLE SODIUM 42377140209 Active Tawnya Pardo MA Active CLONAZEPAM 0.5 MG TABS 1 tab po daily CLONAZEPAM 0.5 MG TABS 341324 CLONAZEPAM Inactive PREDNISONE 20 MG TAB 3 tabs today, then 1 tab twice daily for 3 day, then one daily for three days PREDNISONE 20 MG TAB 750493 PREDNISONE Inactive PREDNISONE 20 MG TAB 2 tabs daily for 4 days, 1 tab daily for 4 days, 1/2 tab daily for 4 days PREDNISONE 20 MG TAB 414910 PREDNISONE Inactive PREDNISONE 10 MG TABS 1 tab po daily PREDNISONE 10 MG TABS 554899 PREDNISONE Inactive TYLENOL EXTRA STRENGTH 500 MG TABS as needed TYLENOL EXTRA STRENGTH 500 MG TABS 400003 ACETAMINOPHEN Inactive MUPIROCIN 2 % OINT apply to affected area BID x 14 days MUPIROCIN 2 % OINT 769791 MUPIROCIN Inactive MONTELUKAST SODIUM 10 MG TABS 1 tab po in the evening MONTELUKAST SODIUM 10 MG TABS 146512 MONTELUKAST SODIUM Inactive BENZONATATE 100 MG CAPS 1 cap po TID PRN BENZONATATE 100 MG CAPS 842558 BENZONATATE Inactive NEURONTIN 300 MG CAP 1 cap by mouth three times daily for restless leg 06/22 NEURONTIN 300 MG CAP 940597 GABAPENTIN Inactive LEVAQUIN 500 MG TAB 1 tablet by mouth daily LEVAQUIN 500 MG TAB 256484 LEVOFLOXACIN Inactive PREDNISONE 20 MG TAB 1 TID x 2 days, then 1 BID x 3 days, then 1 Daily x 3 days, then stop PREDNISONE 20 MG TAB 649367 PREDNISONE Inactive POTASSIUM CHLORIDE ER 10 MEQ CR-TABS take 1 tab po daily POTASSIUM CHLORIDE ER 10 MEQ CR-TABS POTASSIUM CHLORIDE Inactive PREDNISONE 20 MG TAB 1 tab twice daily for 3 day, then one daily for three days PREDNISONE 20 MG TAB 898205 PREDNISONE Inactive TESSALON PERLES 100 MG CAP 1 to 2 tablets by mouth 3 times daily as needed for cough TESSALON PERLES 100 MG CAP 033691 BENZONATATE Inactive POTASSIUM CHLORIDE CR 10 MEQ [...] nightly for cholesterol LOVASTATIN 40 MG TABS 279645 LOVASTATIN Inactive CEFDINIR 300 MG ORAL CAPS take 1 cap po bid x 10 days CEFDINIR 300 MG ORAL CAPS 365020 CEFDINIR Inactive ACEBUTOLOL HCL 200 MG CAPS 1 cap in the morning and 2 caps in the evening ACEBUTOLOL HCL 200 MG CAPS 808394 ACEBUTOLOL HCL Inactive VENTOLIN HFA 108 (90 BASE) MCG/ACT AERS 2 -4 puffs four times a day PRN 2013 VENTOLIN HFA 108 (90 BASE) MCG/ACT AERS ALBUTEROL SULFATE Inactive LEVAQUIN 500 MG ORAL TABS Take 1 tab po daily x 8 days LEVAQUIN 500 MG ORAL TABS 577835 LEVOFLOXACIN Inactive PREDNISONE 20 MG TAB 2 tabs daily for 4 days, 1 tab daily for 4 days, 1/2 tab daily for 4 days PREDNISONE 20 MG TAB 390214 PREDNISONE Inactive LOVASTATIN 40 MG ORAL TABS Take 1 tab po every hs LOVASTATIN 40 MG ORAL TABS 919911 LOVASTATIN Inactive DILAUDID 2 MG ORAL TABS Take 1/2 tab po every 4 hours as needed for pain 2014 DILAUDID 2 MG ORAL TABS 276711 HYDROMORPHONE HCL Inactive AMITRIPTYLINE HCL 25 MG ORAL TABS 1 q hs prn AMITRIPTYLINE HCL 25 MG ORAL TABS 006838 AMITRIPTYLINE HCL Inactive MECLIZINE HCL 25 MG TAB 1 tablet three times daily for 3 days, then 1/2 tab three times daily for 3 days. MECLIZINE HCL 25 MG TAB 679810 MECLIZINE HCL Inactive AMLODIPINE BESYLATE 5 MG ORAL TABS Take 1 tab po daily AMLODIPINE BESYLATE 5 MG ORAL TABS 238272 AMLODIPINE BESYLATE Inactive TOPIRAMATE 25 MG TABS 1 tab po BID TOPIRAMATE 25 MG TABS 463431 TOPIRAMATE Inactive PREDNISONE 20 MG TAB 1 tablet twice daily for 2 days, then 1 tablet once daily for 2 days PREDNISONE 20 MG TAB 051304 PREDNISONE Inactive PREDNISONE 20 MG TAB 1 tab twice daily for 3 day, then one daily for three days PREDNISONE 20 MG TAB 686099 PREDNISONE Inactive AZITHROMYCIN 250 MG TABS 2 po qd x 1 day, then 1 po qd x 4 days AZITHROMYCIN 250 MG TABS 4910754 AZITHROMYCIN Inactive AZITHROMYCIN 250 MG TABS 2 po qd x 1 day, then 1 po qd x 4 days AZITHROMYCIN 250 MG TABS 4097267 AZITHROMYCIN Inactive PREDNISONE 20 MG TAB 2 po qd x 5 days PREDNISONE 20 MG TAB 402334 PREDNISONE Inactive Vital Signs Date Name Value [...] Panel - Chemistry sodium, serum 138 mmol/L 585-778 4870/09/24 potassium, serum 3.5 mmol/L 3.5-5.2 chloride, serum [...] Magnesium - Chemistry cholesterol, serum 180 mg/dL 175-554 9092/08/08 triglyceride, serum, fasting 92 mg/dL 30-200 HDL cholesterol, serum 66 mg/dL 32-96 LDL cholesterol, serum 96 mg/dL 0-130 sodium, serum 142 mmol/L 495-704 3462/08/08 carbon dioxide, venous blood 27.4 mmol/L 21.0-32.0 [...] 10.0-20.0 Encounters Code Encounter Date Provider Facility CPT-26863 Level 3 Est. Patient 09:58:58 CDT Harinder Hernandez [facility] [address] CPT-08525 Level 3 Est. Patient 12:37:21 CDT Harinder Cr [facility] CPT-74517 Level 3 Est. Patient 18:37:17 CDT Harinder Hernandez [facility] [address] CPT-30207 Level 4 Est. Patient 11:15:54 CDT Nettie Newberry APRN [facility] CPT-12743 Level 3 Est. Patient 16:42:24 CDT Harinder Hernandez [facility] [address] CPT-61693 Level 3 Est. Patient 15:03:36 CDT Harinder Hernandez [facility] [address] CPT-51897 Level 3 Est. Patient 15:03:20 CDT Harinder Hernandez [facility] [address] CPT-46093 Level 3 Est. Patient 12:14:34 CDT Harinder Hernandez [facility] CPT-60138 Level 3 Est. Patient 13:47:15 CDT Harinder Hernandez [facility] CPT-62288 Level 3 Est. Patient 14:08:24 CDT Harinder Hernandez [facility] CPT-39298 Level 3 Est. Patient 10:07:15 CDT Harinder Hernandez [facility] CPT-19653 Level 3 Est. Patient 10:06:59 CDT Harinder Hernandez [facility] CPT-77604 Level 3 Est. Patient 15:53:29 CDT Jae Morgan MD [facility] CPT-31565 Level 3 Est. Patient 17:19:04 CDT Harinder Hernandez [facility] CPT-43366 Level 3 Est. Patient 11:13:01 CDT Harinder Shaye Hernandez [facility] CPT-62113 Level 3 Est. Patient 09:03:58 CDT Harinder Hernandez [facility] [address] CPT-22569 Level 3 Est. Patient 14:46:45 [employer] Harinder Hernandez [facility] CPT-32925 Level 3 Est. Patient 09:35:49 [employer] Harinder Hernandez [facility] [address] CPT-34606 Level 3 Est. Patient 09:29:37 [employer] Harinder Hernandez [facility] [address] CPT-64328 Level 3 Est. Patient 15:51:07 CDT Harinder Hernandez [facility] CPT-08961 Level 3 Est. Patient 18:13:13 CDT Harinder Hernandez [facility] CPT-88654 Level 3 Est. Patient 10:44:19 CDT Harinder Hernandez [facility] CPT-10180 Level 4 Est. Patient 10:07:19 [employer] Harinder Cr [facility] CPT-32772 Level 3 Est. Patient 15:59:32 [employer] Harinder Cr [facility] Procedures Code Procedure Name Date Entry Date Standard Description CPT-81798 No Charge Offi Visit 14:11:29 CDT CPT-29919 Magnesium - LAB USE ONLY 10:45:44 CDT CPT-67905 Lipid - LAB USE ONLY 10:45:44 CDT CPT-72881 CBC - LAB USE ONLY 10:45:44 CDT CPT-77714 Venipuncture Draw Fee 10:45:43 CDT CPT-61338 Venipuncture Draw Fee 18:21:27 CDT CPT-JTINJ Asp/Joint Injection 18:38:04 CDT CPT-86653 Immunization Each Additional Inj 17:38:04 CDT CPT-04737 Immunization Single Admin 17:38:04 CDT CPT-53973 Prevnar 13 17:38:04 CDT CPT-12878 Fluzone Quadrivalent preservative free (>=3yrs.) 17:38: 04 CDT CPT-78492 No Charge Offi Visit 11:14:03 CDT CPT-40073 Chest 2V Frontal and Lat 14:00:18 CDT CPT-OV Office Visit 16:10:28 CDT CPT-JTINJ Asp/Joint Injection 09:03:57 CDT CPT-Cryo Cryotherapy 09:35:49 [employer] CPT-JTINJ Asp/Joint Injection 09:34:45 [employer] CPT-J2930 Solu Medrol 125 mg (Methyl Prednisolone Sodium Succinate) 20:37:27 CDT CPT-86632 Abx/Therapy Injection 20:37:27 CDT CPT-53773 Port a cath flush 08:15:51 CDT CPT-43571 Port a cath flush 09:54:16 CDT CPT-62964 Port a cath flush 09:38:02 CDT CPT-22636 Port a cath flush 11:00:27 [employer]
--- OUTSIDE RECORDS SUMMARY | 2017-12-29 04:34 | XMS REPORT | Clinical Summary ---
Author Author Admin, QIE Organization [facility] [employer] Address Unknown Phone Unavailable Allergies, Adverse Reactions, [...] tab po q day therafter. POTASSIUM CHLORIDE 64586462345 Active Kortney Mccain Active POTASSIUM CHLORIDE CR 10 MEQ CPCR 1 capsule BID POTASSIUM CHLORIDE 45252435372 No Longer Active Kortney Mccain Active LASIX 20 MG TAB 1 tablet by mouth every morning FUROSEMIDE 31852458319 No Longer Active Kortney Mccain Active SPIRONOLACTONE 25 MG TAB 1 tablet by mouth daily SPIRONOLACTONE 52981348123 Active Ciera Pimentel Active FLUOXETINE HCL 10 MG ORAL CAPS 1 po qd for depression/anxiety FLUOXETINE HCL 05011337792 Active Harinder Hernandez DO Active VOLTAREN 1 % GEL apply q 6-8 hour to left arm as needed for pain DICLOFENAC SODIUM 29561968604 Active Harinder Hernandez DO Active ALBUTEROL SULFATE 0.083 % NEBU SOLN 1 vial neb q 4hrs for severe asthma. 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 FLUTICASONE PROPIONATE HFA 66994305447 Active Harinder Hernandez DO Active EPIPEN 2-BRUNA 0.3 MG/0.3ML INJ SOAJ 1 INJ NEEDED EPINEPHRINE 08394343236 Active Harinder Hernandez DO Active PREDNISONE 20 MG TAB 1 tab twice daily for 3 day, then one daily for three days PREDNISONE 34652928414 No Longer Active Harinder Hernandez DO Active PREDNISONE 20 MG TAB 1 tablet twice daily for 2 days, then 1 tablet once daily for 2 days PREDNISONE 30006807799 No Longer Active Harinder Hernandez DO Active ASMANEX 120 METERED DOSES 220 MCG/INH INH AEPB 2 puffs orally twice daily MOMETASONE FUROATE 95907402001 Active Jeri Sosa LPN Active TOPIRAMATE 25 MG TABS 1 tab po BID TOPIRAMATE 66045441291 No Longer Active Nettie Newberry APRN Active AMLODIPINE BESYLATE 5 MG ORAL TABS Take 1 tab po daily AMLODIPINE BESYLATE 70549853987 No Longer Active Nettie Newberry APRN Active MECLIZINE HCL 25 MG TAB 1 tablet three times daily for 3 days, then 1/2 tab three times daily for 3 days. MECLIZINE HCL 77819678286 No Longer Active Nettie Newberry MAHENDRA Active AMITRIPTYLINE HCL 25 MG ORAL TABS 1 q hs prn AMITRIPTYLINE HCL 40480648126 No Longer Active Nettie Newberry MAHENDRA Active DILAUDID 2 MG ORAL TABS Take 1/2 tab po every 4 hours as needed for pain 2014 HYDROMORPHONE HCL 14056562783 No Longer Active Nettieog Newberry APRN Active CLOPIDOGREL BISULFATE 75 MG ORAL TABS 1 tab by mouth once daily CLOPIDOGREL BISULFATE 97832427437 Active Harinder Hernandez DO Active ATORVASTATIN CALCIUM 10 MG ORAL TABS 1 at bedtime ATORVASTATIN CALCIUM 40361947241 Active Tawnya Pardo MA Active LOVASTATIN 40 MG ORAL TABS Take 1 tab po every hs LOVASTATIN 34735609601 No Longer Active Harinder Hernandez DO Active PREDNISONE 20 MG TAB 2 tabs daily for 4 days, 1 tab daily for 4 days, 1/2 tab daily for 4 days PREDNISONE 93544366987 No Longer Active Harinder Hernandez DO Active LEVAQUIN 500 MG ORAL TABS Take 1 tab po daily x 8 days LEVOFLOXACIN 08245622662 No Longer Active Harinder Hernandez DO Active VENTOLIN HFA 108 (90 BASE) MCG/ACT AERS 2 -4 puffs four times a day PRN 2013 ALBUTEROL SULFATE 39391797039 No Longer Active Jeri Sosa LPN Active ACEBUTOLOL HCL 200 MG CAPS 1 cap in the morning and 2 caps in the evening ACEBUTOLOL HCL 85208869082 No Longer Active Harinder Hernandez DO Active CEFDINIR 300 MG ORAL CAPS take 1 cap po bid x 10 days CEFDINIR 65169296850 No Longer Active Harinder Hernandez DO Active LOVASTATIN 40 MG TABS 1 pill by mouth nightly for cholesterol LOVASTATIN 33059434992 No Longer Active Nettie Rohith MAHENDRA Active NITROSTAT 0.4 MG SUBL 1 tab under tongueas needed for chest pain ( may take 3 total, 5 min apart, then call 911) NITROGLYCERIN 86785672971 No Longer Active Nettie Newberry MAHENDRA Active POTASSIUM CHLORIDE CR 10 MEQ CPCR 1 capsule by mouth daily 02/14 POTASSIUM CHLORIDE 59482445836 No [facility] TESSALON PERLES 100 MG CAP 1 to 2 tablets by mouth 3 times daily as needed for cough BENZONATATE 74702042264 No Longer Active Nettie Newberry MAHENDRA Active THEOPHYLLINE ER 200 MG ORAL [id number] Take 1 tab every 12 hours THEOPHYLLINE 53987252890 Active Harinder Hernandez DO Active PREDNISONE 20 MG TAB 2 po qd x 5 days PREDNISONE 52263179077 No Longer Active Jae Mogran MD Active AZITHROMYCIN 250 MG TABS 2 po qd x 1 day, then 1 po qd x 4 days AZITHROMYCIN 58125524663 No Longer Active Jae Morgan MD Active PREDNISONE 20 MG TAB 1 tab twice daily for 3 day, then one daily for three days PREDNISONE 54829899125 No Longer Active Jae Morgan MD Active SINGULAIR 10 MG TABS 1 pill by mouth every evening for breathing. MONTELUKAST SODIUM 59312010027 Active Tawnya Pardo MA Active TYLENOL 325 MG TAB 3 by mouth q4h as needed ACETAMINOPHEN 51370015950 Active Harinder Hernandez DO Active POTASSIUM CHLORIDE ER 10 MEQ CR-TABS take 1 tab po daily POTASSIUM CHLORIDE 23682507413 No Longer Active Harinder Hernandez DO Active PREDNISONE 20 MG TAB 1 TID x 2 days, then 1 BID x 3 days, then 1 Daily x 3 days, then stop PREDNISONE 86563403010 No Longer Active John Montemayor APRN Active LEVAQUIN 500 MG TAB 1 tablet by mouth daily LEVOFLOXACIN 13337201712 No Longer Active John Montemayor ASPHALT TAMPER Active NEURONTIN 300 MG CAP 1 cap by mouth three times daily for restless leg 06/22 GABAPENTIN 33124181558 No Longer Active Harinder Hernandez DO Active BENZONATATE 100 MG CAPS 1 cap po TID PRN BENZONATATE 66427141817 No Longer Active Harinder Hernandez DO Active MONTELUKAST SODIUM 10 MG TABS 1 tab po in the evening MONTELUKAST SODIUM 48697579066 No Longer Active Harinder Hernandez DO Active MUPIROCIN 2 % OINT apply to affected area BID x 14 days MUPIROCIN 38665683866 No Longer Active Harinder Hernandez DO Active TYLENOL EXTRA STRENGTH 500 MG TABS as needed ACETAMINOPHEN 81335985023 No Longer Active Harinder Hernandez DO Active PREDNISONE 10 MG TABS 1 tab po daily PREDNISONE 44937271973 No Longer Active Harinder Hernandez DO Active PREDNISONE 20 MG TAB 2 tabs daily for 4 days, 1 tab daily for 4 days, 1/2 tab daily for 4 days PREDNISONE 49367486997 No Longer Active Harinder Hernandez DO Active AZITHROMYCIN 250 MG TABS 2 po qd x 1 day, then 1 po qd x 4 days AZITHROMYCIN 24077149224 No Longer Active Harinder Hernandez DO Active PREDNISONE 20 MG TAB 3 tabs today, then 1 tab twice daily for 3 day, then one daily for three days PREDNISONE 10729923891 No Longer Active Harinder Hernandez DO Active NIFEDIAC CC 30 MG [id number] 1 tablet daily for raynaud's syndrome NIFEDIPINE 43682185055 No Longer Active Tawnya Pardo MA Active AMBIEN 10 MG TAB 1/2 tab by mouth at bedtime as needed for sleep ZOLPIDEM TARTRATE 80770905024 Active Harinder Hernandez DO Active CLONAZEPAM 1 MG TABS 1 tablet at bedtime for insomnia and restless legs 09/14 CLONAZEPAM 83243581341 Active Harinder Hernandez DO Active CLONAZEPAM 0.5 MG TABS 1 tab po daily CLONAZEPAM 72546889128 No Longer Active Harinder Hernandez DO Active PREDNISONE 10 MG TAB 1 tablet daily for COPD PREDNISONE 36833048342 Active Harinder Hernandez DO Active PROAIR HFA 108 (90 BASE) MCG/ACT AERS 2 puffs four times a day as needed 2012 ALBUTEROL SULFATE 76243080398 Active Harinder Hernandez DO Active FLOVENT HFA 110 MCG/ACT AERO 2 puffs inhaled b.i.d. FLUTICASONE PROPIONATE HFA 37202865813 Active Kortney Mccain Active ACIPHEX 20 MG TBEC 1 tab po daily RABEPRAZOLE SODIUM 33609367852 Active Kaylah Newberry Active CLONAZEPAM 0.5 MG TABS 1 tab po daily CLONAZEPAM 0.5 MG TABS 444612 CLONAZEPAM Inactive PREDNISONE 20 MG TAB 3 tabs today, then 1 tab twice daily for 3 day, then one daily for three days PREDNISONE 20 MG TAB 484855 PREDNISONE Inactive PREDNISONE 20 MG TAB 2 tabs daily for 4 days, 1 tab daily for 4 days, 1/2 tab daily for 4 days PREDNISONE 20 MG TAB 502537 PREDNISONE Inactive PREDNISONE 10 MG TABS 1 tab po daily PREDNISONE 10 MG TABS 509945 PREDNISONE Inactive TYLENOL EXTRA STRENGTH 500 MG TABS as needed TYLENOL EXTRA STRENGTH 500 MG TABS ACETAMINOPHEN Inactive MUPIROCIN 2 % OINT apply to affected area BID x 14 days MUPIROCIN 2 % OINT 420304 MUPIROCIN Inactive MONTELUKAST SODIUM 10 MG TABS 1 tab po in the evening MONTELUKAST SODIUM 10 MG TABS 20010818 MONTELUKAST SODIUM Inactive BENZONATATE 100 MG CAPS 1 cap po TID PRN BENZONATATE 100 MG CAPS 991930 BENZONATATE Inactive NEURONTIN 300 MG CAP 1 cap by mouth three times daily for restless leg 06/22 NEURONTIN 300 MG CAP 199775 GABAPENTIN Inactive LEVAQUIN 500 MG TAB 1 tablet by mouth daily LEVAQUIN 500 MG TAB 482553 LEVOFLOXACIN Inactive PREDNISONE 20 MG TAB 1 TID x 2 days, then 1 BID x 3 days, then 1 Daily x 3 days, then stop PREDNISONE 20 MG TAB 446485 PREDNISONE Inactive POTASSIUM CHLORIDE ER 10 MEQ CR-TABS take 1 tab po daily POTASSIUM CHLORIDE ER 10 MEQ CR-TABS POTASSIUM CHLORIDE Inactive PREDNISONE 20 MG TAB 1 tab twice daily for 3 day, then one daily for three days PREDNISONE 20 MG TAB 898068 PREDNISONE Inactive TESSALON PERLES 100 MG CAP 1 to 2 tablets by mouth 3 times daily as needed for cough TESSALON PERLES 100 MG CAP 941327 BENZONATATE Inactive POTASSIUM CHLORIDE CR 10 MEQ CPCR 1 capsule by mouth daily 02/14 POTASSIUM CHLORIDE CR 10 MEQ CPCR POTASSIUM CHLORIDE Inactive NITROSTAT 0.4 MG SUBL 1 tab under tongueas needed for chest pain ( may take 3 total, 5 min apart, then call 911) NITROSTAT 0.4 MG SUBL 572163 NITROGLYCERIN Inactive LOVASTATIN 40 MG TABS 1 pill by mouth nightly for cholesterol LOVASTATIN 40 MG TABS 914247 LOVASTATIN Inactive CEFDINIR 300 MG ORAL CAPS take 1 cap po bid x 10 days CEFDINIR 300 MG ORAL CAPS 240424 CEFDINIR Inactive ACEBUTOLOL HCL 200 MG CAPS 1 cap in the morning and 2 caps in the evening ACEBUTOLOL HCL 200 MG CAPS 993642 ACEBUTOLOL HCL Inactive VENTOLIN HFA 108 (90 BASE) MCG/ACT AERS 2 -4 puffs four times a day PRN 2013 VENTOLIN HFA 108 (90 BASE) MCG/ACT AERS ALBUTEROL SULFATE Inactive LEVAQUIN 500 MG ORAL TABS Take 1 tab po daily x 8 days LEVAQUIN 500 MG ORAL TABS 597273 LEVOFLOXACIN Inactive PREDNISONE 20 MG TAB 2 tabs daily for 4 days, 1 tab daily for 4 days, 1/2 tab daily for 4 days PREDNISONE 20 MG TAB 438422 PREDNISONE Inactive LOVASTATIN 40 MG ORAL TABS Take 1 tab po every hs LOVASTATIN 40 MG ORAL TABS 153090 LOVASTATIN Inactive DILAUDID 2 MG ORAL TABS Take 1/2 tab po every 4 hours as needed for pain 2014 DILAUDID 2 MG ORAL TABS 581220 HYDROMORPHONE HCL Inactive AMITRIPTYLINE HCL 25 MG ORAL TABS 1 q hs prn AMITRIPTYLINE HCL 25 MG ORAL TABS 162499 AMITRIPTYLINE HCL Inactive MECLIZINE HCL 25 MG TAB 1 tablet three times daily for 3 days, then 1/2 tab three times daily for 3 days. MECLIZINE HCL 25 MG TAB 615537 MECLIZINE HCL Inactive AMLODIPINE BESYLATE 5 MG ORAL TABS Take 1 tab po daily AMLODIPINE BESYLATE 5 MG ORAL TABS 011810 AMLODIPINE BESYLATE Inactive TOPIRAMATE 25 MG TABS 1 tab po BID TOPIRAMATE 25 MG TABS 980427 TOPIRAMATE Inactive PREDNISONE 20 MG TAB 1 tablet twice daily for 2 days, then 1 tablet once daily for 2 days PREDNISONE 20 MG TAB 716572 PREDNISONE Inactive PREDNISONE 20 MG TAB 1 tab twice daily for 3 day, then one daily for three days PREDNISONE 20 MG TAB 491140 PREDNISONE Inactive NIFEDIPINE ER 30 MG ORAL [id number] 1 daily NIFEDIPINE ER 30 MG ORAL [id number] NIFEDIPINE Inactive AMLODIPINE BESYLATE 5 MG TABS 1 tablet by mouth daily AMLODIPINE BESYLATE 5 MG TABS 840905 AMLODIPINE BESYLATE Inactive LASIX 20 MG TAB 1 tablet by mouth every morning LASIX 20 MG TAB 438846 FUROSEMIDE Inactive POTASSIUM CHLORIDE CR 10 MEQ CPCR 1 capsule BID POTASSIUM CHLORIDE CR 10 MEQ CPCR POTASSIUM CHLORIDE Inactive AZITHROMYCIN 250 MG TABS 2 po qd x 1 day, then 1 po qd x 4 days AZITHROMYCIN 250 MG TABS 3759253 AZITHROMYCIN Inactive AZITHROMYCIN 250 MG TABS 2 po qd x 1 day, then 1 po qd x 4 days AZITHROMYCIN 250 MG TABS 7922483 AZITHROMYCIN Inactive PREDNISONE 20 MG TAB 2 po qd x 5 days PREDNISONE 20 MG TAB 115234 PREDNISONE Inactive Vital Signs Date Name Value [...] Panel - Chemistry sodium, serum 137 mmol/L 968-234 4624/01/03 potassium, serum 3.4 mmol/L 3.5-5.2 chloride, serum 102 mmol/L 98-107 carbon dioxide, venous blood 29.2 mmol/L 21.0-32.0 blood glucose 87 mg/dL 65-110 calcium, serum 8.5 mg/dL 8.5-10.1 urea nitrogen, blood 8 mg/dL 7-18 creatinine, serum 0.82 mg/dL 0.55-1.30 sodium, serum 140 mmol/L 269-854 3442/07/13 potassium, serum 3.2 mmol/L 3.5-5.2 chloride, serum 103 mmol/L 98-107 carbon dioxide, venous blood 26.9 mmol/L 21.0-32.0 blood glucose 93 mg/dL 65-110 calcium, serum 9.2 mg/dL 8.5-10.1 urea nitrogen, blood 13 mg/dL 7-18 creatinine, serum 0.84 mg/dL 0.60-1.30 sodium, serum 140 mmol/L 185-618 7423/08/21 potassium, serum 3.8 mmol/L 3.5-5.2 chloride, serum [...] ... - Chemistry sodium, serum 141 mmol/L 170-795 9655/08/07 carbon dioxide, venous blood 34.0 mmol/L 21.0-32.0 [...] 0-19 Encounters Code Encounter Date Provider Facility CPT-60404 Level 4 Est. Patient 14:45:25 CDT Harinder Hernandez [facility] CPT-60333 Level 4 Est. Patient 09:15:13 CDT Harinder Hernandez [facility] CPT-17808 Level 3 Est. Patient 11:51:58 CDT Harinder Hernandez [facility] CPT-30066 Level 3 Est. Patient 11:30:05 CDT Harinder Hernandez [facility] CPT-38089 Level 4 Est. Patient 10:19:23 CDT Harinder Hernandez [facility] CPT-17322 Level 3 Est. Patient 09:58:58 CDT Harinder Cr [facility] CPT-56584 Level 3 Est. Patient 12:37:21 CDT Harinder Hernandez [facility] CPT-05522 Level 3 Est. Patient 18:37:17 CDT Harinder Cr [facility] CPT-56750 Level 4 Est. Patient 11:15:54 CDT Nettie Newberry [facility] CPT-23501 Level 3 Est. Patient 16:42:24 CDT Harinder Cr [facility] CPT-28390 Level 3 Est. Patient 15:03:36 CDT Harinder Hernandez [facility] CPT-43395 Level 3 Est. Patient 15:03:20 CDT Harinder Cr [facility] CPT-31733 Level 3 Est. Patient 12:14:34 CDT Harinder Hernandez [facility] CPT-18378 Level 3 Est. Patient 13:47:15 CDT Harinder Cr [facility] CPT-49852 Level 3 Est. Patient 14:08:24 CDT Harinder Hernandez [facility] CPT-47301 Level 3 Est. Patient 10:07:15 CDT Harinder Cr [facility] CPT-98021 Level 3 Est. Patient 10:06:59 [facility] Level 3 Est. Patient 15:53:29 CDT Jae Morgan MD [facility] CPT-50377 Level 3 Est. Patient 17:19:04 CDT Harinder Hernandez [facility] CPT-52009 Level 3 Est. Patient 11:13:01 CDT Harinder Hernandez [facility] CPT-80961 Level 3 Est. Patient 09:03:58 CDT Harinder Hernandez [facility] CPT-14906 Level 3 Est. Patient 14:46:45 ESCALATOR INSTALLER Harinder Hernandez [facility] CPT-04597 Level 3 Est. Patient 09:35:49 ESCALATOR INSTALLER Harinder Hernandez [facility] CPT-54683 Level 3 Est. Patient 09:29:37 ESCALATOR INSTALLER Harinder Hernandez [facility] CPT-45786 Level 3 Est. Patient 15:51:07 CDT Harinder Hernandez [facility] CPT-49218 Level 3 Est. Patient 18:13:13 CDT Harinder Cr [facility] CPT-45808 Level 3 Est. Patient 10:44:19 CDT Harinder Hernandez [facility] CPT-86795 Level 4 Est. Patient 10:07:19 ESCALATOR INSTALLER Harinder Cr [facility] CPT-16997 Level 3 Est. Patient 15:59:32 ESCALATOR INSTALLER Harinder Hernandez [facility] Procedures Code Procedure Name Date Entry Date Standard Description CPT-05318 Abd compl w upright - XRAY USE ONLY 14:48:09 CDT 02/18 CPT-65369 Port a cath flush 13:46:05 CDT CPT-24933 Hip, complete, 2-3 views - XRAY USE ONLY 10:28:40 CDT CPT-48036 BMP - LAB USE ONLY 16:45:09 ESCALATOR INSTALLER CPT-57806 Port a cath flush 12:00:13 ESCALATOR INSTALLER CPT-TCMM Transitional Care Mgmt-Moderate 11:20:16 ESCALATOR INSTALLER CPT-10073 First Vx - Ix admin for Medicare patients 17:35:15 CDT CPT-96789 Fluzone Preservative Free Intramuscular Suspension 17:35 :15 CDT CPT-54851 Microalbumin - LAB USE ONLY 11:52:05 CDT CPT-TCMM Transitional Care Mgmt-Moderate 11:33:57 CDT CPT-28842 No Charge Offi Visit 14:11:29 CDT CPT-50138 Magnesium - LAB USE ONLY 10:45:44 CDT CPT-65879 Lipid - LAB USE ONLY 10:45:44 CDT CPT-07582 CBC - LAB USE ONLY 10:45:44 CDT CPT-26684 Venipuncture Draw Fee 10:45:43 CDT CPT-81468 Venipuncture Draw Fee 18:21:27 CDT CPT-JTINJ Asp/Joint Injection 18:38:04 CDT CPT-42505 Immunization Each Additional Inj 17:38:04 CDT CPT-58415 Immunization Single Admin 17:38:04 CDT CPT-86848 Prevnar 13 17:38:04 CDT CPT-57326 Fluzone Quadrivalent preservative free (>=3yrs.) 17:38: 04 CDT CPT-24172 No Charge Offi Visit 11:14:03 CDT CPT-80617 Chest 2V Frontal and Lat 14:00:18 CDT CPT-OV Office Visit 16:10:28 CDT CPT-JTINJ Asp/Joint Injection 09:03:57 CDT CPT-Cryo Cryotherapy 09:35:49 ESCALATOR INSTALLER CPT-JTINJ Asp/Joint Injection 09:34:45 ESCALATOR INSTALLER CPT-J2930 Solu Medrol 125 mg (Methyl Prednisolone Sodium Succinate) 20:37:27 CDT CPT-60760 Abx/Therapy Injection 20:37:27 CDT CPT-52446 Port a cath flush 08:15:51 CDT CPT-91757 Port a cath flush 09:54:16 CDT CPT-37653 Port a cath flush 09:38:02 CDT CPT-28376 Port a cath flush 11:00:27 ESCALATOR INSTALLER
--- OUTSIDE RECORDS SUMMARY | 2017-12-29 04:36 | XMS REPORT | Clinical Summary ---
Author Author Admin, QIE Organization [facility] Address Unknown Phone Unavailable Allergies, Adverse Reactions, [...] TAB 1 tablet by mouth daily SPIRONOLACTONE [id number] Prince Pimentel Active POTASSIUM CHLORIDE CR 10 MEQ CPCR 1 capsule BID POTASSIUM CHLORIDE 12904398834 Prince Mccain Active FLUOXETINE HCL 10 MG ORAL CAPS 1 po qd for depression/anxiety FLUOXETINE HCL 31956658322 Active Harinder Hernandez DO Active VOLTAREN 1 % GEL apply q 6-8 hour to left arm as needed for pain DICLOFENAC SODIUM 80002792632 Prince Hernandez DO Active LASIX 20 MG TAB 1 tablet by mouth every morning FUROSEMIDE 84015956117 Prince Mccain Active POTASSIUM CHLORIDE 20 MEQ ORAL PACK 1 tab po BID POTASSIUM CHLORIDE 68059189744 Prince Mccain Active ALBUTEROL SULFATE 0.083 % NEBU SOLN 1 vial neb q 4hrs for severe asthma. 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 FLUTICASONE PROPIONATE HFA 93416000412 Active Harinder Hernandez DO Active EPIPEN 2-BRUNA 0.3 MG/0.3ML INJ SOAJ 1 INJ NEEDED EPINEPHRINE 85836803075 Active Harinder Hernandez DO Active PREDNISONE 20 MG TAB 1 tab twice daily for 3 day, then one daily for three days PREDNISONE 19736719038 No Longer Active Harinder Hernandez DO Active PREDNISONE 20 MG TAB 1 tablet twice daily for 2 days, then 1 tablet once daily for 2 days PREDNISONE 02943460027 No Longer Active Harinder Hernandez DO Active ASMANEX 120 METERED DOSES 220 MCG/INH INH AEPB 2 puffs orally twice daily MOMETASONE FUROATE 98209133591 Active Jeri Sosa LPN Active TOPIRAMATE 25 MG TABS 1 tab po BID TOPIRAMATE 06133111148 No Longer Active Nettie Newberry APRN Active AMLODIPINE BESYLATE 5 MG ORAL TABS Take 1 tab po daily AMLODIPINE BESYLATE 03013144806 No Longer Active Nettie Newberry APRN Active MECLIZINE HCL 25 MG TAB 1 tablet three times daily for 3 days, then 1/2 tab three times daily for 3 days. MECLIZINE HCL 00775853844 No Longer Active Nettie Newberry APRN Active AMITRIPTYLINE HCL 25 MG ORAL TABS 1 q hs prn AMITRIPTYLINE HCL 57375967354 No Longer Active Nettie Newberry APRN Active DILAUDID 2 MG ORAL TABS Take 1/2 tab po every 4 hours as needed for pain 2014 HYDROMORPHONE HCL 55795063454 No Longer Active Nettie Newberry APRN Active CLOPIDOGREL BISULFATE 75 MG ORAL TABS 1 tab by mouth once daily CLOPIDOGREL BISULFATE 29996340413 Active Harinder Hernandez DO Active ATORVASTATIN CALCIUM 10 MG ORAL TABS 1 at bedtime ATORVASTATIN CALCIUM 97434371935 Active Tawnya Pardo MA Active LOVASTATIN 40 MG ORAL TABS Take 1 tab po every hs LOVASTATIN 16967609026 No Longer Active Harinder Hernandez DO Active PREDNISONE 20 MG TAB 2 tabs daily for 4 days, 1 tab daily for 4 days, 1/2 tab daily for 4 days PREDNISONE 19636917283 No Longer Active Harinder Hernandez DO Active LEVAQUIN 500 MG ORAL TABS Take 1 tab po daily x 8 days LEVOFLOXACIN 42645825703 No Longer Active Harinder Hernandez DO Active VENTOLIN HFA 108 (90 BASE) MCG/ACT AERS 2 -4 puffs four times a day PRN 2013 ALBUTEROL SULFATE 24566342497 No Longer Active Jeri Sosa LPN Active ACEBUTOLOL HCL 200 MG CAPS 1 cap in the morning and 2 caps in the evening ACEBUTOLOL HCL 86245043402 No Longer Active Harinder Hernandez DO Active CEFDINIR 300 MG ORAL CAPS take 1 cap po bid x 10 days CEFDINIR 59770127505 No Longer Active Harinder Hernandez DO Active LOVASTATIN 40 MG TABS 1 pill by mouth nightly for cholesterol LOVASTATIN 52185118916 No Longer Active Nettie Newberry APRN Active NITROSTAT 0.4 MG SUBL 1 tab under tongueas needed for chest pain ( may take 3 total, 5 min apart, then call 911) NITROGLYCERIN 26938331246 No Longer Active Nettie Newberry MAHENDRA Active POTASSIUM CHLORIDE CR 10 MEQ CPCR 1 capsule by mouth daily 02/14 POTASSIUM CHLORIDE 42613947317 No Longer Active Nettie Newberry MAHENDRA Active TESSALON PERLES 100 MG CAP 1 to 2 tablets by mouth 3 times daily as needed for cough BENZONATATE 37260480095 No Longer Active Nettie Newberry MAHENDRA Active THEOPHYLLINE ER 200 MG ORAL [id number] Take 1 tab every 12 hours THEOPHYLLINE 07402215092 Active Kortney Mccain Active PREDNISONE 20 MG TAB 2 po qd x 5 days PREDNISONE 64484227410 No Longer Active Jae Morgan MD Active AZITHROMYCIN 250 MG TABS 2 po qd x 1 day, then 1 po qd x 4 days AZITHROMYCIN 51259483430 No Longer Active Jae Morgan MD Active PREDNISONE 20 MG TAB 1 tab twice daily for 3 day, then one daily for three days PREDNISONE 16474806635 No Longer Active Jae Morgan MD Active SINGULAIR 10 MG TABS 1 pill by mouth every evening for breathing. MONTELUKAST SODIUM 68085099443 Active Tawnya Pardo MA Active TYLENOL 325 MG TAB 3 by mouth q4h as needed ACETAMINOPHEN 76129749541 Active Harinder Hernandez DO Active POTASSIUM CHLORIDE ER 10 MEQ CR-TABS take 1 tab po daily POTASSIUM CHLORIDE 80592828011 No Longer Active Harinder Hernandez DO Active PREDNISONE 20 MG TAB 1 TID x 2 days, then 1 BID x 3 days, then 1 Daily x 3 days, then stop PREDNISONE 99300305202 No Longer Active John Montemayor APRN Active LEVAQUIN 500 MG TAB 1 tablet by mouth daily LEVOFLOXACIN 32908708017 No Longer Active Jillina Frazell COGENERATION TECHNICIAN Active NEURONTIN 300 MG CAP 1 cap by mouth three times daily for restless leg 06/22 GABAPENTIN 82233658801 No Longer Active Harinder Hernandez DO Active BENZONATATE 100 MG CAPS 1 cap po TID PRN BENZONATATE 43038091152 No Longer Active Harinder Hernandez DO Active MONTELUKAST SODIUM 10 MG TABS 1 tab po in the evening MONTELUKAST SODIUM 80703178088 No Longer Active Harinder Hernandez DO Active MUPIROCIN 2 % OINT apply to affected area BID x 14 days MUPIROCIN 57944131752 No Longer Active Harinder Hernandez DO Active TYLENOL EXTRA STRENGTH 500 MG TABS as needed ACETAMINOPHEN 24523044535 No Longer Active Harinder Hernandez DO Active PREDNISONE 10 MG TABS 1 tab po daily PREDNISONE 71128922711 No Longer Active Harinder Hernandez DO Active PREDNISONE 20 MG TAB 2 tabs daily for 4 days, 1 tab daily for 4 days, 1/2 tab daily for 4 days PREDNISONE 61536063526 No Longer Active Harinder Hernandez DO Active AZITHROMYCIN 250 MG TABS 2 po qd x 1 day, then 1 po qd x 4 days AZITHROMYCIN 14948059569 No Longer Active Harinder Hernandez DO Active PREDNISONE 20 MG TAB 3 tabs today, then 1 tab twice daily for 3 day, then one daily for three days PREDNISONE 41567442505 No Longer Active Harinder Hernandez DO Active NIFEDIAC CC 30 MG [id number] 1 tablet daily for raynaud's syndrome NIFEDIPINE 12620610466 No Longer Active Tawnya Pardo MA Active AMBIEN 10 MG TAB 1/2 tab by mouth at bedtime as needed for sleep ZOLPIDEM TARTRATE 97203390882 Active Ciera Pimentel Active CLONAZEPAM 1 MG TABS 1 tablet at bedtime for insomnia and restless legs 09/14 CLONAZEPAM 07431657743 Active Harinder Hernandez DO Active CLONAZEPAM 0.5 MG TABS 1 tab po daily CLONAZEPAM 46551046832 No Longer Active Harinder Hernandez DO Active PREDNISONE 10 MG TAB 1 tablet daily for COPD PREDNISONE 85696945774 Active Ciera Pimentel Active PROAIR HFA 108 (90 BASE) MCG/ACT AERS 2 puffs four times a day as needed 2012 ALBUTEROL SULFATE 86265775325 Active Harinder Hernandez DO Active FLOVENT HFA 110 MCG/ACT AERO 2 puffs inhaled b.i.d. FLUTICASONE PROPIONATE HFA 71929265751 Active Kortneyalice Mccain Active ACIPHEX 20 MG TBEC 1 tab po daily RABEPRAZOLE SODIUM 31670924017 Active Kaylah Newberry Active CLONAZEPAM 0.5 MG TABS 1 tab po daily CLONAZEPAM 0.5 MG TABS 372046 CLONAZEPAM Inactive PREDNISONE 20 MG TAB 3 tabs today, then 1 tab twice daily for 3 day, then one daily for three days PREDNISONE 20 MG TAB 598929 PREDNISONE Inactive PREDNISONE 20 MG TAB 2 tabs daily for 4 days, 1 tab daily for 4 days, 1/2 tab daily for 4 days PREDNISONE 20 MG TAB 024342 PREDNISONE Inactive PREDNISONE 10 MG TABS 1 tab po daily PREDNISONE 10 MG TABS 448965 PREDNISONE Inactive TYLENOL EXTRA STRENGTH 500 MG TABS as needed TYLENOL EXTRA STRENGTH 500 MG TABS 579940 ACETAMINOPHEN Inactive MUPIROCIN 2 % OINT apply to affected area BID x 14 days MUPIROCIN 2 % OINT 165296 MUPIROCIN Inactive MONTELUKAST SODIUM 10 MG TABS 1 tab po in the evening MONTELUKAST SODIUM 10 MG TABS 20010818 MONTELUKAST SODIUM Inactive BENZONATATE 100 MG CAPS 1 cap po TID PRN BENZONATATE 100 MG CAPS 610131 BENZONATATE Inactive NEURONTIN 300 MG CAP 1 cap by mouth three times daily for restless leg 06/22 NEURONTIN 300 MG CAP 407752 GABAPENTIN Inactive LEVAQUIN 500 MG TAB 1 tablet by mouth daily LEVAQUIN 500 MG TAB 072250 LEVOFLOXACIN Inactive PREDNISONE 20 MG TAB 1 TID x 2 days, then 1 BID x 3 days, then 1 Daily x 3 days, then stop PREDNISONE 20 MG TAB 397546 PREDNISONE Inactive POTASSIUM CHLORIDE ER 10 MEQ CR-TABS take 1 tab po daily POTASSIUM CHLORIDE ER 10 MEQ CR-TABS POTASSIUM CHLORIDE Inactive PREDNISONE 20 MG TAB 1 tab twice daily for 3 day, then one daily for three days PREDNISONE 20 MG TAB 469479 PREDNISONE Inactive TESSALON PERLES 100 MG CAP 1 to 2 tablets by mouth 3 times daily as needed for cough TESSALON PERLES 100 MG CAP 591904 BENZONATATE Inactive POTASSIUM CHLORIDE CR 10 MEQ CPCR 1 capsule by mouth daily 02/14 POTASSIUM CHLORIDE CR 10 MEQ CPCR POTASSIUM CHLORIDE Inactive NITROSTAT 0.4 MG SUBL 1 tab under tongueas needed for chest pain ( may take 3 total, 5 min apart, then call 911) NITROSTAT 0.4 MG SUBL 557615 NITROGLYCERIN Inactive LOVASTATIN 40 MG TABS 1 pill by mouth nightly for cholesterol LOVASTATIN 40 MG TABS 475528 LOVASTATIN Inactive CEFDINIR 300 MG ORAL CAPS take 1 cap po bid x 10 days CEFDINIR 300 MG ORAL CAPS 940657 CEFDINIR Inactive ACEBUTOLOL HCL 200 MG CAPS 1 cap in the morning and 2 caps in the evening ACEBUTOLOL HCL 200 MG CAPS 119413 ACEBUTOLOL HCL Inactive VENTOLIN HFA 108 (90 [...] for 4 days PREDNISONE 20 MG TAB 070675 PREDNISONE Inactive LOVASTATIN 40 MG ORAL TABS Take 1 tab po every hs LOVASTATIN 40 MG ORAL TABS 921624 LOVASTATIN Inactive DILAUDID 2 MG ORAL TABS Take 1/2 tab po every 4 hours as needed for pain 2014 DILAUDID 2 MG ORAL TABS 803285 HYDROMORPHONE HCL Inactive AMITRIPTYLINE HCL 25 MG ORAL TABS 1 q hs prn AMITRIPTYLINE HCL 25 MG ORAL TABS 867923 AMITRIPTYLINE HCL Inactive MECLIZINE HCL 25 MG TAB 1 tablet three times daily for 3 days, then 1/2 tab three times daily for 3 days. MECLIZINE HCL 25 MG TAB 116907 MECLIZINE HCL Inactive AMLODIPINE BESYLATE 5 MG ORAL TABS Take 1 tab po daily AMLODIPINE BESYLATE 5 MG ORAL TABS 688501 AMLODIPINE BESYLATE Inactive TOPIRAMATE 25 MG TABS 1 tab po BID TOPIRAMATE 25 MG TABS 321537 TOPIRAMATE Inactive PREDNISONE 20 MG TAB 1 tablet twice daily for 2 days, then 1 tablet once daily for 2 days PREDNISONE 20 MG TAB 145644 PREDNISONE Inactive PREDNISONE 20 MG TAB 1 tab twice daily for 3 day, then one daily for three days PREDNISONE 20 MG TAB 205381 PREDNISONE Inactive NIFEDIPINE ER 30 MG ORAL [id number] 1 daily NIFEDIPINE ER 30 MG ORAL [id number] NIFEDIPINE Inactive AMLODIPINE BESYLATE 5 MG TABS 1 tablet by mouth daily AMLODIPINE BESYLATE 5 MG TABS 686765 AMLODIPINE BESYLATE Inactive AZITHROMYCIN 250 MG TABS 2 po qd x 1 day, then 1 po qd x 4 days AZITHROMYCIN 250 MG TABS 0989707 AZITHROMYCIN Inactive AZITHROMYCIN 250 MG TABS 2 po qd x 1 day, then 1 po qd x 4 days AZITHROMYCIN 250 MG TABS 7714829 AZITHROMYCIN Inactive PREDNISONE 20 MG TAB 2 po qd x 5 days PREDNISONE 20 MG TAB 435721 PREDNISONE Inactive Vital Signs Date Name Value [...] Panel - Chemistry sodium, serum 137 mmol/L 684-902 3529/01/03 potassium, serum 3.4 mmol/L 3.5-5.2 chloride, serum 102 mmol/L 98-107 carbon dioxide, venous blood 29.2 mmol/L 21.0-32.0 blood glucose 87 mg/dL 65-110 calcium, serum 8.5 mg/dL 8.5-10.1 urea nitrogen, blood 8 mg/dL 7-18 creatinine, serum 0.82 mg/dL 0.55-1.30 sodium, serum 140 mmol/L 682-988 2543/07/13 potassium, serum 3.2 mmol/L 3.5-5.2 chloride, serum [...] ... - Chemistry sodium, serum 141 mmol/L 172-338 8245/08/07 carbon dioxide, venous blood 34.0 mmol/L 21.0-32.0 [...] Magnesium - Chemistry cholesterol, serum 180 mg/dL 763-180 9330/08/08 triglyceride, serum, fasting 92 mg/dL 30-200 HDL cholesterol, serum 66 mg/dL 32-96 LDL cholesterol, serum 96 mg/dL 0-130 sodium, serum 142 mmol/L 943-264 1138/08/08 carbon dioxide, venous blood 27.4 mmol/L 21.0-32.0 [...] 10.0-20.0 Encounters Code Encounter Date Provider Facility CPT-34050 Level 4 Est. Patient 14:45:25 CDT Harinder Hernandez [facility] CPT-01952 Level 4 Est. Patient 09:15:13 CDT Harinder Cr [facility] CPT-56733 Level 3 Est. Patient 11:51:58 CDT Harinder Cr [facility] CPT-04400 Level 3 Est. Patient 11:30:05 CDT Harinder Cr [facility] CPT-98568 Level 4 Est. Patient 10:19:23 CDT Harinder Cr [facility] CPT-18371 Level 3 Est. Patient 09:58:58 CDT Harinder Cr [facility] CPT-96321 Level 3 Est. Patient 12:37:21 CDT Harinder Cr [facility] CPT-92306 Level 3 Est. Patient 18:37:17 CDT Harinder Cr [facility] CPT-46526 Level 4 Est. Patient 11:15:54 CDT Nettie Rohith [facility] CPT-34472 Level 3 Est. Patient 16:42:24 CDT Harinder Cr [facility] CPT-81615 Level 3 Est. Patient 15:03:36 CDT Harinder Cr [facility] CPT-80105 Level 3 Est. Patient 15:03:20 CDT Harinder Cr [facility] CPT-00261 Level 3 Est. Patient 12:14:34 CDT Harinder Shaye [facility] CPT-41763 Level 3 Est. Patient 13:47:15 CDT Harinder Cr [facility] CPT-03017 Level 3 Est. Patient 14:08:24 CDT Harinder Cr [facility] CPT-12734 Level 3 Est. Patient 10:07:15 CDT Harinder Hernandez [facility] CPT-33953 Level 3 Est. Patient 10:06:59 CDT Harinder Hernandez [facility] CPT-37757 Level 3 Est. Patient 15:53:29 CDT Jae Morgan MD [facility] CPT-68696 Level 3 Est. Patient 17:19:04 CDT Harinder Hernandez [facility] CPT-55293 Level 3 Est. Patient 11:13:01 CDT Harinder Hernandez [facility] CPT-90649 Level 3 Est. Patient 09:03:58 CDT Harinder Hernandez [facility] CPT-00883 Level 3 Est. Patient 14:46:45 [employer] REPAIRER Harinder Hernandez [facility] CPT-62136 Level 3 Est. Patient 09:35:49 [employer]OMAT[employer] WINDOW REPAIRER Harinder Hernandez [facility] CPT-98037 Level 3 Est. Patient 09:29:37 [employer] AND [employer]OMATIC WINDOW REPAIRER Harinder Hernandez [facility] CPT-52550 Level 3 Est. Patient 15:51:07 CDT Harinder Hernandez [facility] CPT-17207 Level 3 Est. Patient 18:13:13 CDT Harinder Hernandez [facility] CPT-79790 Level 3 Est. Patient 10:44:19 CDT Harinder Shaye Hernandez [facility] CPT-21068 Level 4 Est. Patient 10:07:19 [employer] AND [employer]OMATIC WINDOW REPAIRER Harinder Shaye Hernandez [facility] CPT-96041 Level 3 Est. Patient 15:59:32 [employer]AT[employer] WINDOW REPAIRER Harinder Cr [facility] Procedures Code Procedure Name Date Entry Date Standard Description CPT-42205 Abd compl w upright - XRAY USE ONLY 14:48:09 CDT 02/18 CPT-37212 Port a cath flush 13:46:05 CDT CPT-32717 Hip, complete, 2-3 views - XRAY USE ONLY 10:28:40 CDT CPT-57520 BMP - LAB USE ONLY 16:45:09 [employer] REPAIRER CPT-03721 Port a cath flush 12:00:13 [employer] WINDOW REPAIRER CPT-TCMM Transitional Care Mgmt-Moderate 11:20:16 [employer] WINDOW REPAIRER CPT-52494 First Vx - Ix admin for Medicare patients 17:35:15 CDT CPT-63802 Fluzone Preservative Free Intramuscular Suspension 17:35 :15 CDT CPT-35205 Microalbumin - LAB USE ONLY 11:52:05 CDT CPT-TCMM Transitional Care Mgmt-Moderate 11:33:57 CDT CPT-76713 No Charge Offi Visit 14:11:29 CDT CPT-49275 Magnesium - LAB USE ONLY 10:45:44 CDT CPT-66201 Lipid - LAB USE ONLY 10:45:44 CDT CPT-19601 CBC - LAB USE ONLY 10:45:44 CDT CPT-37205 Venipuncture Draw Fee 10:45:43 CDT CPT-26282 Venipuncture Draw Fee 18:21:27 CDT CPT-JTINJ Asp/Joint Injection 18:38:04 CDT CPT-00985 Immunization Each Additional Inj 17:38:04 CDT CPT-38163 Immunization Single Admin 17:38:04 CDT CPT-66982 Prevnar 13 17:38:04 CDT CPT-95555 Fluzone Quadrivalent preservative free (>=3yrs.) 17:38: 04 CDT CPT-07514 No Charge Offi Visit 11:14:03 CDT CPT-45554 Chest 2V Frontal and Lat 14:00:18 CDT CPT-OV Office Visit 16:10:28 CDT CPT-JTINJ Asp/Joint Injection 09:03:57 CDT CPT-Cryo Cryotherapy 09:35:49 [employer] WINDOW REPAIRER CPT-JTINJ Asp/Joint Injection 09:34:45 [employer] W[employer]OW REPAIRER CPT-J2930 Solu Medrol 125 mg (Methyl Prednisolone Sodium Succinate) 20:37:27 CDT CPT-07200 Abx/Therapy Injection 20:37:27 CDT CPT-32737 Port a cath flush 08:15:51 CDT CPT-56112 Port a cath flush 09:54:16 CDT CPT-05522 Port a cath flush 09:38:02 CDT CPT-34661 Port a cath flush 11:00:27 [employer] AND [employer]OMATIC WINDOW REPAIRER
--- OUTSIDE RECORDS SUMMARY | 2017-12-29 04:37 | XMS REPORT | Clinical Summary ---
Author Author Admin, QIE Organization [facility] Hua Kang Address Unknown Phone Unavailable Allergies, Adverse Reactions, [...] Active Harinder Hernandez DO BENADRYL Critical Active Hrainder Hernandez DO BACLOFEN Critical Active Harinder Hernandez [...] per nostril daily PRN Allergies FLUTICASONE PROPIONATE 00974871607 Active Kortney Mccain Active ALBUTEROL SULFATE 0.083 % NEBU SOLN 1 vial neb q 4hrs PRN Wheezing Dx: J44.1 ALBUTEROL SULFATE 23082167632 Active Kortney Mccain Active AMLODIPINE BESYLATE 5 MG TABS 1 tablet by mouth daily AMLODIPINE BESYLATE 58481039449 Active Harinder Hernandez DO Active NIFEDIPINE ER 30 MG ORAL [id number] 1 daily NIFEDIPINE 81494639600 No Longer Active Harinder Hernandez DO Active POTASSIUM CHLORIDE 20 MEQ ORAL PACK Take 1 tablet by mouth daily POTASSIUM CHLORIDE 07863604433 Active Ciera Pimentel Active FLOVENT HFA 110 MCG/ACT AERO 2 puffs inhaled b.i.d. FLUTICASONE PROPIONATE HFA 86607284338 Active Harinder Hernandez DO Active POTASSIUM CHLORIDE CR 10 MEQ CPCR 1 capsule by mouth daily POTASSIUM CHLORIDE 00945171113 Active Harinder Hernandez DO Active EPIPEN 2-BRUNA 0.3 MG/0.3ML INJ SOAJ 1 INJ NEEDED EPINEPHRINE 38198307750 Active Harinder Hernandez DO Active PREDNISONE 20 MG TAB 1 tab twice daily for 3 day, then one daily for three days PREDNISONE 28072324930 No Longer Active Harinder Hernandez DO Active PREDNISONE 20 MG TAB 1 tablet twice daily for 2 days, then 1 tablet once daily for 2 days PREDNISONE 60502536477 No Longer Active Harinder Hernandez DO Active ASMANEX 120 METERED DOSES 220 MCG/INH INH AEPB 2 puffs orally twice daily MOMETASONE FUROATE 28605598935 Active Jeri Sosa RPT,RMA Active TOPIRAMATE 25 MG TABS 1 tab po BID TOPIRAMATE 61397365956 No Longer Active Nettie Newberry APRN Active AMLODIPINE BESYLATE 5 MG ORAL TABS Take 1 tab po daily AMLODIPINE BESYLATE 95581810185 No Longer Active Nettie Newberry APRN Active MECLIZINE HCL 25 MG TAB 1 tablet three times daily for 3 days, then 1/2 tab three times daily for 3 days. MECLIZINE HCL 39627200857 No Longer Active Nettie Newberry APRN Active AMITRIPTYLINE HCL 25 MG ORAL TABS 1 q hs prn AMITRIPTYLINE HCL 06807710869 No Longer Active Nettie Newberry APRN Active DILAUDID 2 MG ORAL TABS Take 1/2 tab po every 4 hours as needed for pain 2014 HYDROMORPHONE HCL 81603898676 No Longer Active Nettie Newberry MAHENDRA Active CLOPIDOGREL BISULFATE 75 MG ORAL TABS 1 tab by mouth once daily CLOPIDOGREL BISULFATE 50741644731 Active Harinder Hernandez DO Active ATORVASTATIN CALCIUM 10 MG ORAL TABS 1 at bedtime ATORVASTATIN CALCIUM 28755924504 Active Tawnya Pardo MA Active LOVASTATIN 40 MG ORAL TABS Take 1 tab po every hs LOVASTATIN 28789198901 No Longer Active Harinder Hernandez DO Active PREDNISONE 20 MG TAB 2 tabs daily for 4 days, 1 tab daily for 4 days, 1/2 tab daily for 4 days PREDNISONE 73579370442 No Longer Active Harinder Hernandez DO Active LEVAQUIN 500 MG ORAL TABS Take 1 tab po daily x 8 days LEVOFLOXACIN 07421181038 No Longer Active Harinder Hernandez DO Active VENTOLIN HFA 108 (90 BASE) MCG/ACT AERS 2 -4 puffs four times a day PRN 2013 ALBUTEROL SULFATE 82013848075 No Longer Active eJri Sosa RPT,RMA Active ACEBUTOLOL HCL 200 MG CAPS 1 cap in the morning and 2 caps in the evening ACEBUTOLOL HCL 57969406538 No Longer Active Harinder Hernandez DO Active CEFDINIR 300 MG ORAL CAPS take 1 cap po bid x 10 days CEFDINIR 84061953820 No Longer Active Harinder Hernandez DO Active LOVASTATIN 40 MG TABS 1 pill by mouth nightly for cholesterol LOVASTATIN 60073292826 No Longer Active Nettie Newberry APRN Active NITROSTAT 0.4 MG SUBL 1 tab under tongueas needed for chest pain ( may take 3 total, 5 min apart, then call 911) NITROGLYCERIN 88780494015 No Longer Active Nettie Newberry APRN Active POTASSIUM CHLORIDE CR 10 MEQ CPCR 1 capsule by mouth daily 02/14 POTASSIUM CHLORIDE 97033511322 No Longer Active Nettie Newberry APRN Active TESSALON PERLES 100 MG CAP 1 to 2 tablets by mouth 3 times daily as needed for cough BENZONATATE 63566051809 No Longer Active Nettie Newberry APRN Active THEOPHYLLINE ER 200 MG ORAL [id number] Take 1 tab every 12 hours THEOPHYLLINE 77150780911 Active Tawnya Pardo MA Active PREDNISONE 20 MG TAB 2 po qd x 5 days PREDNISONE 11546915461 No Longer Active Jae Morgan MD Active AZITHROMYCIN 250 MG TABS 2 po qd x 1 day, then 1 po qd x 4 days AZITHROMYCIN 68437336280 No Longer Active Jae Morgan MD Active PREDNISONE 20 MG TAB 1 tab twice daily for 3 day, then one daily for three days PREDNISONE 91900623240 No Longer Active Jae Morgan MD Active SINGULAIR 10 MG TABS 1 pill by mouth every evening for breathing. MONTELUKAST SODIUM 60668238955 Active Tawnya Pardo MA Active TYLENOL 325 MG TAB 3 by mouth q4h as needed ACETAMINOPHEN 36032333205 Active Harinder Hernandez DO Active POTASSIUM CHLORIDE ER 10 MEQ CR-TABS take 1 tab po daily POTASSIUM CHLORIDE 47657894139 No Longer Active Harinder Hernandez DO Active PREDNISONE 20 MG TAB 1 TID x 2 days, then 1 BID x 3 days, then 1 Daily x 3 days, then stop PREDNISONE 73692587875 No Longer Active Jillina Frazellor ENHANCED ENVIRONMENTAL OPERATOR Active LEVAQUIN 500 MG TAB 1 tablet by mouth daily LEVOFLOXACIN 47078185235 No Longer Active Jillina Frazell ENHANCED ENVIRONMENTAL OPERATOR Active NEURONTIN 300 MG CAP 1 cap by mouth three times daily for restless leg 06/22 GABAPENTIN 41997828188 No Longer Active Harinder Hernandez DO Active BENZONATATE 100 MG CAPS 1 cap po TID PRN BENZONATATE 70745212030 No Longer Active Harinder Hernandez DO Active MONTELUKAST SODIUM 10 MG TABS 1 tab po in the evening MONTELUKAST SODIUM 96423293277 No Longer Active Harinder Hernandez DO Active MUPIROCIN 2 % OINT apply to affected area BID x 14 days MUPIROCIN 91987654929 No Longer Active Harinder Hernandez DO Active TYLENOL EXTRA STRENGTH 500 MG TABS as needed ACETAMINOPHEN 89773602463 No Longer Active Harinder Hernandez DO Active PREDNISONE 10 MG TABS 1 tab po daily PREDNISONE 99315672721 No Longer Active Harinder Hernandez DO Active PREDNISONE 20 MG TAB 2 tabs daily for 4 days, 1 tab daily for 4 days, 1/2 tab daily for 4 days PREDNISONE 08056295375 No Longer Active Harinder Hernandez DO Active AZITHROMYCIN 250 MG TABS 2 po qd x 1 day, then 1 po qd x 4 days AZITHROMYCIN 74294861938 No Longer Active Harinder Hernandez DO Active PREDNISONE 20 MG TAB 3 tabs today, then 1 tab twice daily for 3 day, then one daily for three days PREDNISONE 07378462495 No Longer Active Harinder Hernandez DO Active NIFEDIAC CC 30 MG [id number] 1 tablet daily for raynaud's syndrome NIFEDIPINE 33266770659 No Longer Active Tawnya Pardo MA Active AMBIEN 10 MG TAB 1/2 tab by mouth at bedtime as needed for sleep ZOLPIDEM TARTRATE 60588451321 Active Kortney Mccain Active CLONAZEPAM 1 MG TABS 1 tablet at bedtime for insomnia and restless legs 09/14 CLONAZEPAM 58439688434 Active Harinder Hernandez DO Active CLONAZEPAM 0.5 MG TABS 1 tab po daily CLONAZEPAM 19018191331 No Longer Active Harinder Hernandez DO Active PREDNISONE 10 MG TAB 1 tablet daily for COPD PREDNISONE 00799368867 Active Tawnya Pardo MA Active PROAIR HFA 108 (90 BASE) MCG/ACT AERS 2 puffs four times a day as needed 2012 ALBUTEROL SULFATE 12366164226 Active Harinder Hernandez DO Active FLOVENT HFA 110 MCG/ACT AERO 2 puffs inhaled b.i.d. FLUTICASONE PROPIONATE HFA 35668265872 Active Kortney Mccain Active ACIPHEX 20 MG TBEC 1 tab po daily RABEPRAZOLE SODIUM 55955107211 Active Kaylah Newberry Active CLONAZEPAM 0.5 MG TABS 1 tab po daily CLONAZEPAM 0.5 MG TABS 811803 CLONAZEPAM Inactive PREDNISONE 20 MG TAB 3 tabs today, then 1 tab twice daily for 3 day, then one daily for three days PREDNISONE 20 MG TAB 976631 PREDNISONE Inactive PREDNISONE 20 MG TAB 2 tabs daily for 4 days, 1 tab daily for 4 days, 1/2 tab daily for 4 days PREDNISONE 20 MG TAB 348738 PREDNISONE Inactive PREDNISONE 10 MG TABS 1 tab po daily PREDNISONE 10 MG TABS 839411 PREDNISONE Inactive TYLENOL EXTRA STRENGTH 500 MG TABS as needed TYLENOL EXTRA STRENGTH 500 MG TABS 832118 ACETAMINOPHEN Inactive MUPIROCIN 2 % OINT apply to affected area BID x 14 days MUPIROCIN 2 % OINT 688801 MUPIROCIN Inactive MONTELUKAST SODIUM 10 MG TABS 1 tab po in the evening MONTELUKAST SODIUM 10 MG TABS 20010818 MONTELUKAST SODIUM Inactive BENZONATATE 100 MG CAPS 1 cap po TID PRN BENZONATATE 100 MG CAPS 256366 BENZONATATE Inactive NEURONTIN 300 MG CAP 1 cap by mouth three times daily for restless leg 06/22 NEURONTIN 300 MG CAP 589433 GABAPENTIN Inactive LEVAQUIN 500 MG TAB 1 tablet by mouth daily LEVAQUIN 500 MG TAB 268761 LEVOFLOXACIN Inactive PREDNISONE 20 MG TAB 1 TID x 2 days, then 1 BID x 3 days, then 1 Daily x 3 days, then stop PREDNISONE 20 MG TAB 056275 PREDNISONE Inactive POTASSIUM CHLORIDE ER 10 MEQ CR-TABS take 1 tab po daily POTASSIUM CHLORIDE ER 10 MEQ CR-TABS POTASSIUM CHLORIDE Inactive PREDNISONE 20 MG TAB 1 tab twice daily for 3 day, then one daily for three days PREDNISONE 20 MG TAB 394471 PREDNISONE Inactive TESSALON PERLES 100 MG CAP 1 to 2 tablets by mouth 3 times daily as needed for cough TESSALON PERLES 100 MG CAP 230665 BENZONATATE Inactive POTASSIUM CHLORIDE CR 10 MEQ CPCR 1 capsule by mouth daily 02/14 POTASSIUM CHLORIDE CR 10 MEQ CPCR POTASSIUM CHLORIDE Inactive NITROSTAT 0.4 MG SUBL 1 tab under tongueas needed for chest pain ( may take 3 total, 5 min apart, then call 911) NITROSTAT 0.4 MG SUBL 704560 NITROGLYCERIN Inactive LOVASTATIN 40 MG TABS 1 pill by mouth nightly for cholesterol LOVASTATIN 40 MG TABS 143938 LOVASTATIN Inactive CEFDINIR 300 MG ORAL CAPS take 1 cap po bid x 10 days CEFDINIR 300 MG ORAL CAPS 20021018 CEFDINIR Inactive ACEBUTOLOL HCL 200 MG CAPS 1 cap in the morning and 2 caps in the evening ACEBUTOLOL HCL 200 MG CAPS 785574 ACEBUTOLOL HCL Inactive VENTOLIN HFA 108 (90 BASE) MCG/ACT AERS 2 -4 puffs four times a day PRN 2013 VENTOLIN HFA 108 (90 BASE) MCG/ACT AERS ALBUTEROL SULFATE Inactive LEVAQUIN 500 MG ORAL TABS Take 1 tab po daily x 8 days LEVAQUIN 500 MG ORAL TABS 038584 LEVOFLOXACIN Inactive PREDNISONE 20 MG TAB 2 tabs daily for 4 days, 1 tab daily for 4 days, 1/2 tab daily for 4 days PREDNISONE 20 MG TAB 718816 PREDNISONE Inactive LOVASTATIN 40 MG ORAL TABS Take 1 tab po every hs LOVASTATIN 40 MG ORAL TABS 419044 LOVASTATIN Inactive DILAUDID 2 MG ORAL TABS Take 1/2 tab po every 4 hours as needed for pain 2014 DILAUDID 2 MG ORAL TABS 527093 HYDROMORPHONE HCL Inactive AMITRIPTYLINE HCL 25 MG ORAL TABS 1 q hs prn AMITRIPTYLINE HCL 25 MG ORAL TABS 109875 AMITRIPTYLINE HCL Inactive MECLIZINE HCL 25 MG TAB 1 tablet three times daily for 3 days, then 1/2 tab three times daily for 3 days. MECLIZINE HCL 25 MG TAB 622753 MECLIZINE HCL Inactive AMLODIPINE BESYLATE 5 MG ORAL TABS Take 1 tab po daily AMLODIPINE BESYLATE 5 MG ORAL TABS 676205 AMLODIPINE BESYLATE Inactive TOPIRAMATE 25 MG TABS 1 tab po BID TOPIRAMATE 25 MG TABS 047944 TOPIRAMATE Inactive PREDNISONE 20 MG TAB 1 tablet twice daily for 2 days, then 1 tablet once daily for 2 days PREDNISONE 20 MG TAB 190369 PREDNISONE Inactive PREDNISONE 20 MG TAB 1 tab twice daily for 3 day, then one daily for three days PREDNISONE 20 MG TAB 068671 PREDNISONE Inactive NIFEDIPINE ER 30 MG ORAL [id number] 1 daily NIFEDIPINE ER 30 MG ORAL [id number] NIFEDIPINE Inactive AZITHROMYCIN 250 MG TABS 2 po qd x 1 day, then 1 po qd x 4 days AZITHROMYCIN 250 MG TABS 9106672 AZITHROMYCIN Inactive AZITHROMYCIN 250 MG TABS 2 po qd x 1 day, then 1 po qd x 4 days AZITHROMYCIN 250 MG TABS 3935549 AZITHROMYCIN Inactive PREDNISONE 20 MG TAB 2 po qd x 5 days PREDNISONE 20 MG TAB 846331 PREDNISONE Inactive Vital Signs Date Name Value [...] Panel - Chemistry sodium, serum 137 mmol/L 863-560 8335/01/03 potassium, serum 3.4 mmol/L 3.5-5.2 chloride, serum [...] Magnesium - Chemistry cholesterol, serum 180 mg/dL 772-894 2575/08/08 triglyceride, serum, fasting 92 mg/dL 30-200 HDL cholesterol, serum 66 mg/dL 32-96 LDL cholesterol, serum 96 mg/dL 0-130 sodium, serum 142 mmol/L 603-067 4633/08/08 carbon dioxide, venous blood 27.4 mmol/L 21.0-32.0 [...] 10.0-20.0 Encounters Code Encounter Date Provider Facility CPT-62090 Level 3 Est. Patient 09:58:58 CDT Harinder Shaye [facility] CPT-51210 Level 3 Est. Patient 12:37:21 CDT Harinder Shaye [facility] CPT-21046 Level 3 Est. Patient 18:37:17 CDT Harinder Cr [facility] CPT-11073 Level 4 Est. Patient 11:15:54 CDT Nettie Rohith [facility] CPT-65792 Level 3 Est. Patient 16:42:24 CDT Harinder Cr [facility] CPT-66840 Level 3 Est. Patient 15:03:36 CDT Harinder Shaye [facility] CPT-39341 Level 3 Est. Patient 15:03:20 CDT Harinder Shaye [facility] CPT-89269 Level 3 Est. Patient 12:14:34 CDT Harinder Shaye [facility] CPT-31675 Level 3 Est. Patient 13:47:15 CDT Harinder Cr [facility] CPT-63308 Level 3 Est. Patient 14:08:24 CDT Harinder Cr [facility] CPT-90700 Level 3 Est. Patient 10:07:15 CDT Harinder Cr [facility] CPT-85294 Level 3 Est. Patient 10:06:59 CDT Harinder Hernandez [facility] CPT-70050 Level 3 Est. Patient 15:53:29 CDT Jae Morgan MD [facility] CPT-28399 Level 3 Est. Patient 17:19:04 CDT Harinder Cr [facility] CPT-05498 Level 3 Est. Patient 11:13:01 CDT Harinder Hernandez [facility] CPT-86979 Level 3 Est. Patient 09:03:58 CDT Harinder Cr [facility] CPT-21066 Level 3 Est. Patient 14:46:45 [employer] Harinder Hernandez [facility] CPT-14919 Level 3 Est. Patient 09:35:49 [employer] Harinder Hernandez [facility] CPT-59940 Level 3 Est. Patient 09:29:37 [employer] Harinder Hernandez [facility] CPT-29239 Level 3 Est. Patient 15:51:07 CDT Harinder Cr [facility] CPT-44152 Level 3 Est. Patient 18:13:13 CDT Harinder Hernandez [facility] CPT-07656 Level 3 Est. Patient 10:44:19 CDT Harinder Cr [facility] CPT-17639 Level 4 Est. Patient 10:07:19 [employer] Harinder Cr [facility] CPT-72011 Level 3 Est. Patient 15:59:32 [employer] Harinder Shaye [facility] Procedures Code Procedure Name Date Entry Date Standard Description CPT-59204 BMP - LAB USE ONLY 16:45:09 [employer] CPT-67559 Port a cath flush 12:00:13 [employer] CPT-TCMM Transitional Care Mgmt-Moderate 11:20:16 [employer] CPT-57352 First Vx - Ix admin for Medicare patients 17:35:15 CDT CPT-43480 Fluzone Preservative Free Intramuscular Suspension 17:35 :15 CDT CPT-00830 Microalbumin - LAB USE ONLY 11:52:05 CDT CPT-TCMM Transitional Care Mgmt-Moderate 11:33:57 CDT CPT-36183 No Charge Offi Visit 14:11:29 CDT CPT-38067 Magnesium - LAB USE ONLY 10:45:44 CDT CPT-91548 Lipid - LAB USE ONLY 10:45:44 CDT CPT-19512 CBC - LAB USE ONLY 10:45:44 CDT CPT-61386 Venipuncture Draw Fee 10:45:43 CDT CPT-59686 Venipuncture Draw Fee 18:21:27 CDT CPT-JTINJ Asp/Joint Injection 18:38:04 CDT CPT-30046 Immunization Each Additional Inj 17:38:04 CDT CPT-27148 Immunization Single Admin 17:38:04 CDT CPT-68954 Prevnar 13 17:38:04 CDT CPT-34242 Fluzone Quadrivalent preservative free (>=3yrs.) 17:38: 04 CDT CPT-17984 No Charge Offi Visit 11:14:03 CDT CPT-43372 Chest 2V Frontal and Lat 14:00:18 CDT CPT-OV Office Visit 16:10:28 CDT CPT-JTINJ Asp/Joint Injection 09:03:57 CDT CPT-Cryo Cryotherapy 09:35:49 [employer] CPT-JTINJ Asp/Joint Injection 09:34:45 [employer] CPT-J2930 Solu Medrol 125 mg (Methyl Prednisolone Sodium Succinate) 20:37:27 CDT CPT-10535 Abx/Therapy Injection 20:37:27 CDT CPT-40592 Port a cath flush 08:15:51 CDT CPT-29993 Port a cath flush 09:54:16 CDT CPT-12228 Port a cath flush 09:38:02 CDT CPT-11372 Port a cath flush 11:00:27 [employer]
--- OUTSIDE RECORDS SUMMARY | 2017-12-29 04:39 | XMS REPORT | Clinical Summary ---
Author Author Admin, QIE Organization [facility] Address Unknown Phone Unavailable Allergies, Adverse Reactions, [...] W David DO Raynaud's syndrome ICD-443.0 Inactive Krotney Mccain Sacroiliitis, right ICD-720.2 Inactive Harinder W [...] + D3 TABLET CALCIUM CARBONATE-VITAMIN D TABS 24161237725 Active Meenu Alejo LPN Active SPIRONOLACTONE 25 MG ORAL TABLET 1 tablet by mouth daily SPIRONOLACTONE 60519822835 No Longer Active Jeri Nieto Active PREDNISONE 20 MG ORAL TABLET 2 tablets by mouth today, then 1 tablet by mouth days 2-3 PREDNISONE 46854670207 No Longer Active Jeri Nieto Active NITROSTAT 0.4 MG SUBLINGUAL TABLET SUBLINGUAL 1 tab SL q5min PRN chest pain NITROGLYCERIN 97640612966 Active Meenu Alejo LPN Active THEOPHYLLINE ER 300 MG ORAL TABLET EXTENDED RELEASE 12 HOUR 1 po BID THEOPHYLLINE 71784954701 Active Kortney Mccain Active POTASSIUM CHLORIDE ER 20 MEQ ORAL TABLET EXTENDED RELEASE 1 po q day POTASSIUM CHLORIDE 66505413757 Active Kortney Mccain Active POTASSIUM CHLORIDE 20 MEQ ORAL PACKET 1 tab po q day POTASSIUM CHLORIDE 73161491784 No Longer Active Kortney Mccain Active POTASSIUM CHLORIDE ER 10 MEQ ORAL CAPSULE EXTENDED RELEASE 1 capsule BID 2016 POTASSIUM CHLORIDE 56176318453 No Longer Active Kortney Mccain Active LASIX 20 MG ORAL TABLET 1 tablet by mouth every morning FUROSEMIDE 02248481089 No Longer Active Kortney Mccain Active FLUOXETINE HCL 10 MG ORAL CAPSULE 1 po qd for depression/anxiety FLUOXETINE HCL 48694853901 Active Meenu Alejo LPN Active VOLTAREN 1 % TRANSDERMAL GEL apply q 6-8 hour to left arm as needed for pain DICLOFENAC SODIUM 53543556430 Active Kortney Mccain Active ALBUTEROL SULFATE (2.5 MG/3ML) 0.083% INHALATION NEBULIZATION SOLUTION 1 vial neb q 4hrs for severe asthma. imperative to have this agent ALBUTEROL SULFATE 79470422878 Active Ciera Pimentel Active NIFEDIAC CC 30 MG ORAL TABLET EXTENDED RELEASE 24 HOUR 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 NIFEDIPINE 88882339556 Active Kortney Mccain Active AMLODIPINE BESYLATE 5 MG ORAL TABLET 1 tablet by mouth daily 2016 AMLODIPINE BESYLATE 63129014650 No Longer Active Harinder Hernandez DO Active TOPAMAX 25 MG ORAL TABLET 1 tab po BID TOPIRAMATE 28452114029 Active Kortney Mccain Active FLUTICASONE PROPIONATE 50 MCG/ACT NASAL SUSPENSION 2 sprays per nostril daily PRN Allergies FLUTICASONE PROPIONATE 49349812545 Active Meenu Alejo LPN Active NIFEDIPINE ER 30 MG ORAL TABLET EXTENDED RELEASE 24 HOUR 1 daily NIFEDIPINE 23132659667 No Longer Active Harinder Hernandez DO Active FLOVENT HFA 110 MCG/ACT INHALATION AEROSOL 2 puffs inhaled b.i.d. FLUTICASONE PROPIONATE HFA 18106346718 Active Harinder Hernandez DO Active EPIPEN 2-BRUNA 0.3 MG/0.3ML INJECTION SOLUTION AUTO-INJECTOR 1 INJ NEEDED EPINEPHRINE 21604073789 Active Meenu Alejo LPN Active PREDNISONE 20 MG ORAL TABLET 1 tab twice daily for 3 day, then one daily for three days PREDNISONE 47636530838 No Longer Active Harinder Hernandez DO Active PREDNISONE 20 MG ORAL TABLET 1 tablet twice daily for 2 days, then 1 tablet once daily for 2 days PREDNISONE 22941336293 No Longer Active Harinder Hernandez DO Active ASMANEX 120 METERED DOSES 220 MCG/INH INHALATION AEROSOL POWDER BREATH ACTIVATED 2 puffs orally twice daily MOMETASONE FUROATE 08872880165 Active Jeri Sosa LPN Active TOPIRAMATE 25 MG ORAL TABLET 1 tab po BID TOPIRAMATE 69069917296 No Longer Active Nettie Newberry APRN Active AMLODIPINE BESYLATE 5 MG ORAL TABLET Take 1 tab po daily AMLODIPINE BESYLATE 14443267821 No Longer Active Nettie Newberry APRN Active MECLIZINE HCL 25 MG ORAL TABLET 1 tablet three times daily for 3 days, then 1/ 2 tab three times daily for 3 days. MECLIZINE HCL 68123321501 No Longer Active Nettie Newberry APRN Active AMITRIPTYLINE HCL 25 MG ORAL TABLET 1 q hs prn AMITRIPTYLINE HCL 02086358071 No Longer Active Nettie Newberry APRN Active DILAUDID 2 MG ORAL TABLET Take 1/2 tab po every 4 hours as needed for pain HYDROMORPHONE HCL 30360856535 No Longer Active Nettie Newberry APRN Active CLOPIDOGREL BISULFATE 75 MG ORAL TABLET 1 tab by mouth once daily CLOPIDOGREL BISULFATE 63513191745 Active Meenu Alejo LPN Active ATORVASTATIN CALCIUM 10 MG ORAL TABLET 1 at bedtime ATORVASTATIN CALCIUM 49954519564 Active Kortney Mccain Active LOVASTATIN 40 MG ORAL TABLET Take 1 tab po every hs LOVASTATIN 79141939895 No Longer Active Harinder Hernandez DO Active PREDNISONE 20 MG ORAL TABLET 2 tabs daily for 4 days, 1 tab daily for 4 days, 1/2 tab daily for 4 days PREDNISONE 82533739312 No Longer Active Harinder Hernandez DO Active LEVAQUIN 500 MG ORAL TABLET Take 1 tab po daily x 8 days LEVOFLOXACIN 72326499009 No Longer Active Harinder Hernandez DO Active VENTOLIN HFA 108 (90 Base) MCG/ACT INHALATION AEROSOL SOLUTION 2 -4 puffs four times a day PRN ALBUTEROL SULFATE 43643983034 No Longer Active Jeri Sosa LPN Active ACEBUTOLOL HCL 200 MG ORAL CAPSULE 1 cap in the morning and 2 caps in the evening ACEBUTOLOL HCL 29877242490 No Longer Active Harinder Hernandez DO Active CEFDINIR 300 MG ORAL CAPSULE take 1 cap po bid x 10 days CEFDINIR 21771941116 No Longer Active Harinder Hernandez DO Active LOVASTATIN 40 MG ORAL TABLET 1 pill by mouth nightly for cholesterol LOVASTATIN 72783891251 No Longer Active Nettie Newberry APRN Active NITROSTAT 0.4 MG SUBLINGUAL TABLET SUBLINGUAL 1 tab under tongueas needed for chest pain ( may take 3 total, 5 min apart, then call 911) NITROGLYCERIN 14183855673 No Longer Active Nettie Newberry APRN Active POTASSIUM CHLORIDE ER 10 MEQ ORAL CAPSULE EXTENDED RELEASE 1 capsule by mouth daily POTASSIUM CHLORIDE 20168723832 No Longer Active Nettie Newberry APRN Active TESSALON PERLES 100 MG ORAL CAPSULE 1 to 2 tablets by mouth 3 times daily as needed for cough BENZONATATE 76111615686 No Longer Active Nettie Newberry APRN Active PREDNISONE 20 MG ORAL TABLET 2 po qd x 5 days PREDNISONE 55230687497 No Longer Active Jae Morgan MD Active AZITHROMYCIN 250 MG ORAL TABLET 2 po qd x 1 day, then 1 po qd x 4 days 12/30 AZITHROMYCIN 48684133329 No Longer Active Jae Morgan MD Active PREDNISONE 20 MG ORAL TABLET 1 tab twice daily for 3 day, then one daily for three days PREDNISONE 81820803971 No Longer Active Jae Morgan MD Active SINGULAIR 10 MG ORAL TABLET 1 pill by mouth every evening for breathing. 2014 MONTELUKAST SODIUM 98627195207 Active Meenu Alejo LPN Active TYLENOL 325 MG ORAL TABLET 3 by mouth q4h as needed ACETAMINOPHEN 44062727257 Active Harinder Hernandez DO Active POTASSIUM CHLORIDE ER 10 MEQ ORAL TABLET EXTENDED RELEASE take 1 tab po daily POTASSIUM CHLORIDE 05064503857 No Longer Active Harinder Hernandez DO Active PREDNISONE 20 MG ORAL TABLET 1 TID x 2 days, then 1 BID x 3 days, then 1 Daily x 3 days, then stop PREDNISONE 27908295518 No Longer Active Jillina Fradankl COMIC ARTIST Active LEVAQUIN 500 MG ORAL TABLET 1 tablet by mouth daily LEVOFLOXACIN 67580692252 No Longer Active Jillina Frazell COMIC ARTIST Active NEURONTIN 300 MG ORAL CAPSULE 1 cap by mouth three times daily for restless leg GABAPENTIN 05707216890 No Longer Active Harinder Hernandez DO Active BENZONATATE 100 MG ORAL CAPSULE 1 cap po TID PRN BENZONATATE 13773001306 No Longer Active Harinder Hernandez DO Active MONTELUKAST SODIUM 10 MG ORAL TABLET 1 tab po in the evening 2014 MONTELUKAST SODIUM 42644775565 No Longer Active Harinder Hernandez DO Active MUPIROCIN 2 % EXTERNAL OINTMENT apply to affected area BID x 14 days MUPIROCIN 83567069253 No Longer Active Harinder Hernandez DO Active TYLENOL EXTRA STRENGTH 500 MG ORAL TABLET as needed ACETAMINOPHEN 38689097437 No Longer Active Harinder Hernandez DO Active PREDNISONE 10 MG ORAL TABLET 1 tab po daily PREDNISONE 47125982482 No Longer Active Harinder Hernandez DO Active PREDNISONE 20 MG ORAL TABLET 2 tabs daily for 4 days, 1 tab daily for 4 days, 1/2 tab daily for 4 days PREDNISONE 17560352995 No Longer Active Harinder Hernandez DO Active AZITHROMYCIN 250 MG ORAL TABLET 2 po qd x 1 day, then 1 po qd x 4 days 04/06 AZITHROMYCIN 04612239234 No Longer Active Harinder Hernandez DO Active PREDNISONE 20 MG ORAL TABLET 3 tabs today, then 1 tab twice daily for 3 day, then one daily for three days PREDNISONE 50742935355 No Longer Active Harinder Hernandez DO Active NIFEDIAC CC 30 MG ORAL TABLET EXTENDED RELEASE 24 HOUR 1 tablet daily for raynaud's syndrome NIFEDIPINE 96289052517 No Longer Active Tawnya Pardo MA Active AMBIEN 10 MG ORAL TABLET 1/2 tab by mouth at bedtime as needed for sleep 2013 ZOLPIDEM TARTRATE 22127989010 Active Meenu Alejo LPN Active CLONAZEPAM 1 MG ORAL TABLET 1 tablet at bedtime for insomnia and restless legs CLONAZEPAM 35663043134 Active Harinder Hernandez DO Active CLONAZEPAM 0.5 MG ORAL TABLET 1 tab po daily CLONAZEPAM 05729530716 No Longer Active Harinder Hernandez DO Active PREDNISONE 10 MG ORAL TABLET 1 tablet daily for COPD PREDNISONE 22811500574 Active Kortney Mccain Active PROAIR HFA 108 (90 Base) MCG/ACT INHALATION AEROSOL SOLUTION 2 puffs four times a day as needed ALBUTEROL SULFATE 14127819624 Active Harinder Hernandez DO Active FLOVENT HFA 110 MCG/ACT INHALATION AEROSOL 2 puffs inhaled b.i.d. FLUTICASONE PROPIONATE HFA 84571638733 Active Kortney Mccain Active ACIPHEX 20 MG ORAL TABLET DELAYED RELEASE 1 tab po daily RABEPRAZOLE SODIUM 53425146143 Active Meenu Alejo LPN Active CLONAZEPAM 0.5 MG ORAL TABLET 1 tab po daily CLONAZEPAM 0.5 MG ORAL TABLET 349456 CLONAZEPAM Inactive PREDNISONE 20 MG ORAL TABLET 3 tabs today, then 1 tab twice daily for 3 day, then one daily for three days PREDNISONE 20 MG ORAL TABLET 857548 PREDNISONE Inactive PREDNISONE 20 MG ORAL TABLET 2 tabs daily for 4 days, 1 tab daily for 4 days, 1/2 tab daily for 4 days PREDNISONE 20 MG ORAL TABLET 089190 PREDNISONE Inactive PREDNISONE 10 MG ORAL TABLET 1 tab po daily PREDNISONE 10 MG ORAL TABLET 365401 PREDNISONE Inactive TYLENOL EXTRA STRENGTH 500 MG ORAL TABLET as needed TYLENOL EXTRA STRENGTH 500 MG ORAL TABLET 338309 ACETAMINOPHEN Inactive MUPIROCIN 2 % EXTERNAL OINTMENT apply to affected area BID x 14 days MUPIROCIN 2 % EXTERNAL OINTMENT 738296 MUPIROCIN Inactive MONTELUKAST SODIUM 10 MG ORAL TABLET 1 tab po in the evening 2014 MONTELUKAST SODIUM 10 MG ORAL TABLET 525006 MONTELUKAST SODIUM Inactive BENZONATATE 100 MG ORAL CAPSULE 1 cap po TID PRN BENZONATATE 100 MG ORAL CAPSULE 478329 BENZONATATE Inactive NEURONTIN 300 MG ORAL CAPSULE 1 cap by mouth three times daily for restless leg NEURONTIN 300 MG ORAL CAPSULE 012916 GABAPENTIN Inactive LEVAQUIN 500 MG ORAL TABLET 1 tablet by mouth daily LEVAQUIN 500 MG ORAL TABLET 640449 LEVOFLOXACIN Inactive PREDNISONE 20 MG ORAL TABLET 1 TID x 2 days, then 1 BID x 3 days, then 1 Daily x 3 days, then stop PREDNISONE 20 MG ORAL TABLET 474208 PREDNISONE Inactive POTASSIUM CHLORIDE ER 10 MEQ ORAL TABLET EXTENDED RELEASE take 1 tab po daily POTASSIUM CHLORIDE ER 10 MEQ ORAL TABLET EXTENDED RELEASE POTASSIUM CHLORIDE Inactive PREDNISONE 20 MG ORAL TABLET 1 tab twice daily for 3 day, then one daily for three days PREDNISONE 20 MG ORAL TABLET 328528 PREDNISONE Inactive TESSALON PERLES 100 MG ORAL CAPSULE 1 to 2 tablets by mouth 3 times daily as needed for cough TESSALON PERLES 100 MG ORAL CAPSULE 803070 BENZONATATE Inactive POTASSIUM CHLORIDE ER 10 MEQ ORAL CAPSULE EXTENDED RELEASE 1 capsule by mouth daily POTASSIUM CHLORIDE ER 10 MEQ ORAL CAPSULE EXTENDED RELEASE POTASSIUM CHLORIDE Inactive NITROSTAT 0.4 MG SUBLINGUAL TABLET SUBLINGUAL 1 tab under tongueas needed for chest pain ( may take 3 total, 5 min apart, then call 911) NITROSTAT 0.4 MG SUBLINGUAL TABLET SUBLINGUAL 255560 NITROGLYCERIN Inactive LOVASTATIN 40 MG ORAL TABLET 1 pill by mouth nightly for cholesterol LOVASTATIN 40 MG ORAL TABLET 921758 LOVASTATIN Inactive CEFDINIR 300 MG ORAL CAPSULE take 1 cap po bid x 10 days CEFDINIR 300 MG ORAL CAPSULE 016645 CEFDINIR Inactive ACEBUTOLOL HCL 200 MG ORAL CAPSULE 1 cap in the morning and 2 caps in the evening ACEBUTOLOL HCL 200 MG ORAL CAPSULE 984275 ACEBUTOLOL HCL Inactive VENTOLIN HFA 108 (90 Base) MCG/ACT INHALATION AEROSOL SOLUTION 2 -4 puffs four times a day PRN VENTOLIN HFA 108 (90 Base) MCG/ ACT INHALATION AEROSOL SOLUTION ALBUTEROL SULFATE Inactive LEVAQUIN 500 MG ORAL TABLET Take 1 tab po daily x 8 days LEVAQUIN 500 MG ORAL TABLET 151350 LEVOFLOXACIN Inactive PREDNISONE 20 MG ORAL TABLET 2 tabs daily for 4 days, 1 tab daily for 4 days, 1/2 tab daily for 4 days PREDNISONE 20 MG ORAL TABLET 487587 PREDNISONE Inactive LOVASTATIN 40 MG ORAL TABLET Take 1 tab po every hs LOVASTATIN 40 MG ORAL TABLET 042870 LOVASTATIN Inactive DILAUDID 2 MG ORAL TABLET Take 1/2 tab po every 4 hours as needed for pain DILAUDID 2 MG ORAL TABLET 500702 HYDROMORPHONE HCL Inactive AMITRIPTYLINE HCL 25 MG ORAL TABLET 1 q hs prn AMITRIPTYLINE HCL 25 MG ORAL TABLET 171717 AMITRIPTYLINE HCL Inactive MECLIZINE HCL 25 MG ORAL TABLET 1 tablet three times daily for 3 days, then 1/ 2 tab three times daily for 3 days. MECLIZINE HCL 25 MG ORAL TABLET 183553 MECLIZINE HCL Inactive AMLODIPINE BESYLATE 5 MG ORAL TABLET Take 1 tab po daily AMLODIPINE BESYLATE 5 MG ORAL TABLET 020478 AMLODIPINE BESYLATE Inactive TOPIRAMATE 25 MG ORAL TABLET 1 tab po BID TOPIRAMATE 25 MG ORAL TABLET 738593 TOPIRAMATE Inactive PREDNISONE 20 MG ORAL TABLET 1 tablet twice daily for 2 days, then 1 tablet once daily for 2 days PREDNISONE 20 MG ORAL TABLET 734424 PREDNISONE Inactive PREDNISONE 20 MG ORAL TABLET 1 tab twice daily for 3 day, then one daily for three days PREDNISONE 20 MG ORAL TABLET 977352 PREDNISONE Inactive NIFEDIPINE ER 30 MG ORAL TABLET EXTENDED RELEASE 24 HOUR 1 daily NIFEDIPINE ER 30 MG ORAL TABLET EXTENDED RELEASE 24 HOUR NIFEDIPINE Inactive AMLODIPINE BESYLATE 5 MG ORAL TABLET 1 tablet by mouth daily 2016 AMLODIPINE BESYLATE 5 MG ORAL TABLET 592182 AMLODIPINE BESYLATE Inactive LASIX 20 MG ORAL TABLET 1 tablet by mouth every morning LASIX 20 MG ORAL TABLET 208873 FUROSEMIDE Inactive POTASSIUM CHLORIDE ER 10 MEQ ORAL CAPSULE EXTENDED RELEASE 1 capsule BID 2016 POTASSIUM CHLORIDE ER 10 MEQ ORAL CAPSULE EXTENDED RELEASE POTASSIUM CHLORIDE Inactive POTASSIUM CHLORIDE 20 MEQ ORAL PACKET 1 tab po q day POTASSIUM CHLORIDE 20 MEQ ORAL PACKET 2982476 POTASSIUM CHLORIDE Inactive PREDNISONE 20 MG ORAL TABLET 2 tablets by mouth today, then 1 tablet by mouth days 2-3 PREDNISONE 20 MG ORAL TABLET 558553 PREDNISONE Inactive SPIRONOLACTONE 25 MG ORAL TABLET 1 tablet by mouth daily SPIRONOLACTONE 25 MG ORAL TABLET 305085 SPIRONOLACTONE Inactive AZITHROMYCIN 250 MG ORAL TABLET 2 po qd x 1 day, then 1 po qd x 4 days 04/06 AZITHROMYCIN 250 MG ORAL TABLET 419868 AZITHROMYCIN Inactive AZITHROMYCIN 250 MG ORAL TABLET 2 po qd x 1 day, then 1 po qd x 4 days 12/30 AZITHROMYCIN 250 MG ORAL TABLET 699501 AZITHROMYCIN Inactive PREDNISONE 20 MG ORAL TABLET 2 po qd x 5 days PREDNISONE 20 MG ORAL TABLET 434507 PREDNISONE Inactive Vital Signs Date Name Value [...] Panel - Chemistry sodium, serum 140 mmol/L 029-777 6207/07/13 potassium, serum 3.2 mmol/L 3.5-5.2 chloride, serum 103 mmol/L 98-107 carbon dioxide, venous blood 26.9 mmol/L 21.0-32.0 blood glucose 93 mg/dL 65-110 calcium, serum 9.2 mg/dL 8.5-10.1 urea nitrogen, blood 13 mg/dL 7-18 creatinine, serum 0.84 mg/dL 0.60-1.30 sodium, serum 140 mmol/L 855-984 6035/08/21 potassium, serum 3.8 mmol/L 3.5-5.2 chloride, serum [...] ... - Chemistry sodium, serum 141 mmol/L 237-741 3398/08/07 carbon dioxide, venous blood 34.0 mmol/L 21.0-32.0 [...] 1.40 mg/dL 0.00-1.00 cholesterol, serum 192 mg/dL 768-812 5010/10/19 triglyceride, serum, fasting 71 mg/dL 30-200 HDL cholesterol, serum 72 mg/dL 32-60 LDL cholesterol, serum 106 mg/dL 0-130 Lab Report: Rapid Strep - Lab Microbial identification kit, rapid strep method Negative Negative Lab Report: THEOPHYLLINE - Toxicology theophylline level, serum 3.1 ug/mL 10.0-20.0 Encounters Code Encounter Date Provider Facility CPT-28321 Level 4 Est. Patient 10:17:51 EDI ARCHITECT Harinder Cr [facility] CPT-65532 Level 3 Est. Patient 12:36:15 EDI ARCHITECT Harinder Cr [facility] CPT-74011 Level 3 Est. Patient 15:14:45 EDI ARCHITECT Harinder Cr [facility] CPT-89807 Level 4 Est. Patient 14:45:25 CDT Harinder Cr [facility] CPT-05510 Level 4 Est. Patient 09:15:13 CDT Harinder Cr [facility] CPT-93810 Level 3 Est. Patient 11:51:58 CDT Harinder Cr [facility] CPT-82241 Level 3 Est. Patient 11:30:05 CDT Harinder Cr [facility] CPT-37203 Level 4 Est. Patient 10:19:23 CDT Harinder Cr [facility] CPT-50245 Level 3 Est. Patient 09:58:58 CDT Harinder Hernandez [facility] CPT-51072 Level 3 Est. Patient 12:37:21 CDT Harinder Shaye Hernandez [facility] CPT-47653 Level 3 Est. Patient 18:37:17 CDT Harinder Hernandez [facility] CPT-28813 Level 4 Est. Patient 11:15:54 CDT Nettieog Newberry APRN [facility] CPT-15939 Level 3 Est. Patient 16:42:24 CDT Harinder Cr David [facility] CPT-78793 Level 3 Est. Patient 15:03:36 CDT Harinder Cr David [facility] CPT-33242 Level 3 Est. Patient 15:03:20 CDT Harinder Hernandez [facility] CPT-51864 Level 3 Est. Patient 12:14:34 CDT Harinder Hernandez [facility] CPT-59200 Level 3 Est. Patient 13:47:15 CDT Harinder Shaye David [facility] CPT-77682 Level 3 Est. Patient 14:08:24 CDT Harinder Hernandez [facility] CPT-20175 Level 3 Est. Patient 10:07:15 CDT Harinder Cr David [facility] CPT-01397 Level 3 Est. Patient 10:06:59 CDT Harinder Hernandez [facility] CPT-49888 Level 3 Est. Patient 15:53:29 CDT Jae Morgan MD [facility] CPT-17311 Level 3 Est. Patient 17:19:04 CDT Harinder Cr [facility] CPT-53317 Level 3 Est. Patient 11:13:01 CDT Harinder Cr [facility] CPT-14607 Level 3 Est. Patient 09:03:58 CDT Harinder Cr [facility] CPT-25377 Level 3 Est. Patient 14:46:45 EDI ARCHITECT Harinder Hernandez [facility] CPT-79818 Level 3 Est. Patient 09:35:49 EDI ARCHITECT Harinder Hernandez [facility] CPT-96975 Level 3 Est. Patient 09:29:37 EDI ARCHITECT Harinder Hernandez [facility] CPT-07000 Level 3 Est. Patient 15:51:07 CDT Harinder Hernandez [facility] CPT-19400 Level 3 Est. Patient 18:13:13 CDT Harinder Hernandez [facility] CPT-23348 Level 3 Est. Patient 10:44:19 CDT Harinder Hernandez [facility] CPT-28188 Level 4 Est. Patient 10:07:19 EDI ARCHITECT Harinder Hernandez [facility] CPT-09445 Level 3 Est. Patient 15:59:32 EDI ARCHITECT Harinder Hernandez [facility] Procedures Code Procedure Name Date Entry Date Standard Description CPT-43400 Bone Density - XRAY USE ONLY 14:43:42 CDT CPT-G0009 Administration of Pneumococcal Vaccine 10:33:25 EDI ARCHITECT CPT-40166 Pneumovax 23 Injection Injectable 25 MCG/0.5ML 10:33:25 EDI ARCHITECT CPT-14728 First Vx - Ix admin for Medicare patients 10:33:25 EDI ARCHITECT CPT-14866 Fluzone Quadrivalent Intramuscular Suspension 0.5 ML 10: 33:25 EDI ARCHITECT CPT-Cryo Cryotherapy 10:17:51 EDI ARCHITECT CPT-G0438 Initial Annual Wellness Exam 10:08:59 EDI ARCHITECT CPT-31743 Abd compl w upright - XRAY USE ONLY 14:48:09 CDT 02/18 CPT-96625 Port a cath flush 13:46:05 CDT CPT-57359 Hip, complete, 2-3 views - XRAY USE ONLY 10:28:40 CDT CPT-11573 BMP - LAB USE ONLY 16:45:09 EDI ARCHITECT CPT-84749 Port a cath flush 12:00:13 EDI ARCHITECT CPT-TCMM Transitional Care Mgmt-Moderate 11:20:16 EDI ARCHITECT CPT-48202 First Vx - Ix admin for Medicare patients 17:35:15 CDT CPT-09176 Fluzone Preservative Free Intramuscular Suspension 17:35 :15 CDT CPT-95252 Microalbumin - LAB USE ONLY 11:52:05 CDT CPT-TCMM Transitional Care Mgmt-Moderate 11:33:57 CDT CPT-69373 No Charge Offi Visit 14:11:29 CDT CPT-68379 Magnesium - LAB USE ONLY 10:45:44 CDT CPT-76690 Lipid - LAB USE ONLY 10:45:44 CDT CPT-00826 CBC - LAB USE ONLY 10:45:44 CDT CPT-24637 Venipuncture Draw Fee 10:45:43 CDT CPT-62384 Venipuncture Draw Fee 18:21:27 CDT CPT-JTINJ Asp/Joint Injection 18:38:04 CDT CPT-48614 Immunization Each Additional Inj 17:38:04 CDT CPT-81026 Immunization Single Admin 17:38:04 CDT CPT-05872 Prevnar 13 17:38:04 CDT CPT-12323 Fluzone Quadrivalent preservative free (>=3yrs.) 17:38: 04 CDT CPT-75005 No Charge Offi Visit 11:14:03 CDT CPT-01363 Chest 2V Frontal and Lat 14:00:18 CDT CPT-OV Office Visit 16:10:28 CDT CPT-JTINJ Asp/Joint Injection 09:03:57 CDT CPT-Cryo Cryotherapy 09:35:49 EDI ARCHITECT CPT-JTINJ Asp/Joint Injection 09:34:45 EDI ARCHITECT CPT-J2930 Solu Medrol 125 mg (Methyl Prednisolone Sodium Succinate) 20:37:27 CDT CPT-37763 Abx/Therapy Injection 20:37:27 CDT CPT-08111 Port a cath flush 08:15:51 CDT CPT-65433 Port a cath flush 09:54:16 CDT CPT-21476 Port a cath flush 09:38:02 CDT CPT-05862 Port a cath flush 11:00:27 EDI ARCHITECT
--- OUTSIDE RECORDS SUMMARY | 2017-12-29 04:41 | XMS REPORT | Clinical Summary ---
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 NIFEDIPINE 93314536170 Active Harinder Hernandez DO Active AMLODIPINE BESYLATE 5 MG TABS 1 tablet by mouth daily AMLODIPINE BESYLATE 14453769032 No Longer Active Harinder Hernandez DO Active TOPAMAX 25 MG ORAL TABS 1 tab po BID TOPIRAMATE 46060933134 Active Kortney Mccain Active FLUTICASONE PROPIONATE 50 MCG/ACT SUSP 2 sprays per nostril daily PRN Allergies FLUTICASONE PROPIONATE 91500623610 Active Kortney Mccain Active NIFEDIPINE ER 30 MG ORAL [id number] 1 daily NIFEDIPINE 70600409267 No Longer Active Harinder Hernandez DO Active POTASSIUM CHLORIDE 20 MEQ ORAL PACK Take 1 tablet by mouth daily POTASSIUM CHLORIDE 17934180709 Active Ciera Pimentel Active FLOVENT HFA 110 MCG/ACT AERO 2 puffs inhaled b.i.d. FLUTICASONE PROPIONATE HFA 54233082655 Active Harinder Hernandez DO Active POTASSIUM CHLORIDE CR 10 MEQ CPCR 1 capsule by mouth daily POTASSIUM CHLORIDE 33587182476 Active Harinder Hernandez DO Active EPIPEN 2-BRUNA 0.3 MG/0.3ML INJ SOAJ 1 INJ NEEDED EPINEPHRINE 47255090004 Active Harinder Hernandez DO Active PREDNISONE 20 MG TAB 1 tab twice daily for 3 day, then one daily for three days PREDNISONE 34549851121 No Longer Active Harinder Hernandez DO Active PREDNISONE 20 MG TAB 1 tablet twice daily for 2 days, then 1 tablet once daily for 2 days PREDNISONE 21420694296 No Longer Active Harinder Hernandez DO Active ASMANEX 120 METERED DOSES 220 MCG/INH INH AEPB 2 puffs orally twice daily MOMETASONE FUROATE 99511516304 Active Jeri Sosa RPT,RMA Active TOPIRAMATE 25 MG TABS 1 tab po BID TOPIRAMATE 40409838605 No Longer Active Nettie Newberry APRN Active AMLODIPINE BESYLATE 5 MG ORAL TABS Take 1 tab po daily AMLODIPINE BESYLATE 77804657711 No Longer Active Nettie Newberry APRN Active MECLIZINE HCL 25 MG TAB 1 tablet three times daily for 3 days, then 1/2 tab three times daily for 3 days. MECLIZINE HCL 16676136862 No Longer Active Nettie Newberry APRN Active AMITRIPTYLINE HCL 25 MG ORAL TABS 1 q hs prn AMITRIPTYLINE HCL 38228733159 No Longer Active Nettie Newberry APRN Active DILAUDID 2 MG ORAL TABS Take 1/2 tab po every 4 hours as needed for pain 2014 HYDROMORPHONE HCL 04424414951 No Longer Active Nettie Newberry APRN Active CLOPIDOGREL BISULFATE 75 MG ORAL TABS 1 tab by mouth once daily CLOPIDOGREL BISULFATE 09641541072 Active Harinder Hernandez DO Active ATORVASTATIN CALCIUM 10 MG ORAL TABS 1 at bedtime ATORVASTATIN CALCIUM 74105176649 Active Tawnya Pardo MA Active LOVASTATIN 40 MG ORAL TABS Take 1 tab po every hs LOVASTATIN 61068419657 No Longer Active Harnider Hernandez DO Active PREDNISONE 20 MG TAB 2 tabs daily for 4 days, 1 tab daily for 4 days, 1/2 tab daily for 4 days PREDNISONE 05084982845 No Longer Active Harinder Hernandez DO Active LEVAQUIN 500 MG ORAL TABS Take 1 tab po daily x 8 days LEVOFLOXACIN 57434054146 No Longer Active Harinder Hernandez DO Active VENTOLIN HFA 108 (90 BASE) MCG/ACT AERS 2 -4 puffs four times a day PRN 2013 ALBUTEROL SULFATE 53219233277 No Longer Active Jeri Sosa RPT,RMA Active ACEBUTOLOL HCL 200 MG CAPS 1 cap in the morning and 2 caps in the evening ACEBUTOLOL HCL 81408484166 No Longer Active Harinder Hernandez DO Active CEFDINIR 300 MG ORAL CAPS take 1 cap po bid x 10 days CEFDINIR 46866563623 No Longer Active Harinder Hernandez DO Active LOVASTATIN 40 MG TABS 1 pill by mouth nightly for cholesterol LOVASTATIN 22205080505 No Longer Active Nettie Newberry APRN Active NITROSTAT 0.4 MG SUBL 1 tab under tongueas needed for chest pain ( may take 3 total, 5 min apart, then call 911) NITROGLYCERIN 12798368236 No Longer Active Nettie Newberry APRN Active POTASSIUM CHLORIDE CR 10 MEQ CPCR 1 capsule by mouth daily 02/14 POTASSIUM CHLORIDE 94410430072 No Longer Active Nettie Newberry APRN Active TESSALON PERLES 100 MG CAP 1 to 2 tablets by mouth 3 times daily as needed for cough BENZONATATE 32099693739 No Longer Active Nettie Newberry APRN Active THEOPHYLLINE ER 200 MG ORAL [id number] Take 1 tab every 12 hours THEOPHYLLINE 14799530801 Active Tawnya Pardo MA Active PREDNISONE 20 MG TAB 2 po qd x 5 days PREDNISONE 08568110285 No Longer Active Jae Morgan MD Active AZITHROMYCIN 250 MG TABS 2 po qd x 1 day, then 1 po qd x 4 days AZITHROMYCIN 88306339201 No Longer Active Jae Morgan MD Active PREDNISONE 20 MG TAB 1 tab twice daily for 3 day, then one daily for three days PREDNISONE 00139166852 No Longer Active Jae Morgan MD Active SINGULAIR 10 MG TABS 1 pill by mouth every evening for breathing. MONTELUKAST SODIUM 20683877920 Active Tawnya Pardo MA Active TYLENOL 325 MG TAB 3 by mouth q4h as needed ACETAMINOPHEN 71162687845 Active Harinder Hernandez DO Active POTASSIUM CHLORIDE ER 10 MEQ CR-TABS take 1 tab po daily POTASSIUM CHLORIDE 65492926451 No Longer Active Harinder Hernandez DO Active PREDNISONE 20 MG TAB 1 TID x 2 days, then 1 BID x 3 days, then 1 Daily x 3 days, then stop PREDNISONE 10998853304 No Longer Active Jillina Frazell [employer] ADVISOR Active LEVAQUIN 500 MG TAB 1 tablet by mouth daily LEVOFLOXACIN 27080927661 No Longer Active Jillina Frazell COMM[employer] HE[employer] ADVISOR Active NEURONTIN 300 MG CAP 1 cap by mouth three times daily for restless leg 06/22 GABAPENTIN 65892008356 No Longer Active Harinder Hernandez DO Active BENZONATATE 100 MG CAPS 1 cap po TID PRN BENZONATATE 62918320899 No Longer Active Harinder Hernandez DO Active MONTELUKAST SODIUM 10 MG TABS 1 tab po in the evening MONTELUKAST SODIUM 27483245081 No Longer Active Harinder Hernandez DO Active MUPIROCIN 2 % OINT apply to affected area BID x 14 days MUPIROCIN 87128420097 No Longer Active Harinder Hernandez DO Active TYLENOL EXTRA STRENGTH 500 MG TABS as needed ACETAMINOPHEN 06257724695 No Longer Active Harinder Hernandez DO Active PREDNISONE 10 MG TABS 1 tab po daily PREDNISONE 83956099158 No Longer Active Harinder Hernandez DO Active PREDNISONE 20 MG TAB 2 tabs daily for 4 days, 1 tab daily for 4 days, 1/2 tab daily for 4 days PREDNISONE 35016749656 No Longer Active Harinder Hernandez DO Active AZITHROMYCIN 250 MG TABS 2 po qd x 1 day, then 1 po qd x 4 days AZITHROMYCIN 28591747929 No Longer Active Harinder Hernandez DO Active PREDNISONE 20 MG TAB 3 tabs today, then 1 tab twice daily for 3 day, then one daily for three days PREDNISONE 90634392012 No Longer Active Harinder Hernandez DO Active NIFEDIAC CC 30 MG [id number] 1 tablet daily for raynaud's syndrome NIFEDIPINE 05073194799 No Longer Active Tawnya Pardo MA Active AMBIEN 10 MG TAB 1/2 tab by mouth at bedtime as needed for sleep ZOLPIDEM TARTRATE 10203505209 Active Kortney Mccain Active CLONAZEPAM 1 MG TABS 1 tablet at bedtime for insomnia and restless legs 09/14 CLONAZEPAM 73012537573 Active Harinder Hernandez DO Active CLONAZEPAM 0.5 MG TABS 1 tab po daily CLONAZEPAM 70820989170 No Longer Active Harinder Hernandez DO Active PREDNISONE 10 MG TAB 1 tablet daily for COPD PREDNISONE 81767874371 Active Ciera Pimentel Active PROAIR HFA 108 (90 BASE) MCG/ACT AERS 2 puffs four times a day as needed 2012 ALBUTEROL SULFATE 69463348977 Active Harinder Hernandez DO Active FLOVENT HFA 110 MCG/ACT AERO 2 puffs inhaled b.i.d. FLUTICASONE PROPIONATE HFA 29990180263 Active Kortney Mccain Active ACIPHEX 20 MG TBEC 1 tab po daily RABEPRAZOLE SODIUM 44314044043 Active Kaylah Newberry Active CLONAZEPAM 0.5 MG TABS 1 tab po daily CLONAZEPAM 0.5 MG TABS 170002 CLONAZEPAM Inactive PREDNISONE 20 MG TAB 3 tabs today, then 1 tab twice daily for 3 day, then one daily for three days PREDNISONE 20 MG TAB 855479 PREDNISONE Inactive PREDNISONE 20 MG TAB 2 tabs daily for 4 days, 1 tab daily for 4 days, 1/2 tab daily for 4 days PREDNISONE 20 MG TAB 523571 PREDNISONE Inactive PREDNISONE 10 MG TABS 1 tab po daily PREDNISONE 10 MG TABS 277043 PREDNISONE Inactive TYLENOL EXTRA STRENGTH 500 MG TABS as needed TYLENOL EXTRA STRENGTH 500 MG TABS 777875 ACETAMINOPHEN Inactive MUPIROCIN 2 % OINT apply to affected area BID x 14 days MUPIROCIN 2 % OINT 757718 MUPIROCIN Inactive MONTELUKAST SODIUM 10 MG TABS 1 tab po in the evening MONTELUKAST SODIUM 10 MG TABS 20010818 MONTELUKAST SODIUM Inactive BENZONATATE 100 MG CAPS 1 cap po TID PRN BENZONATATE 100 MG CAPS 736642 BENZONATATE Inactive NEURONTIN 300 MG CAP 1 cap by mouth three times daily for restless leg 06/22 NEURONTIN 300 MG CAP 107778 GABAPENTIN Inactive LEVAQUIN 500 MG TAB 1 tablet by mouth daily LEVAQUIN 500 MG TAB 774341 LEVOFLOXACIN Inactive PREDNISONE 20 MG TAB 1 TID x 2 days, then 1 BID x 3 days, then 1 Daily x 3 days, then stop PREDNISONE 20 MG TAB 383688 PREDNISONE Inactive POTASSIUM CHLORIDE ER 10 MEQ CR-TABS take 1 tab po daily POTASSIUM CHLORIDE ER 10 MEQ CR-TABS POTASSIUM CHLORIDE Inactive PREDNISONE 20 MG TAB 1 tab twice daily for 3 day, then one daily for three days PREDNISONE 20 MG TAB 711144 PREDNISONE Inactive TESSALON PERLES 100 MG CAP 1 to 2 tablets by mouth 3 times daily as needed for cough TESSALON PERLES 100 MG CAP 224360 BENZONATATE Inactive POTASSIUM CHLORIDE CR 10 MEQ CPCR 1 capsule by mouth daily 02/14 POTASSIUM CHLORIDE CR 10 MEQ CPCR POTASSIUM CHLORIDE Inactive NITROSTAT 0.4 MG SUBL 1 tab under tongueas needed for chest pain ( may take 3 total, 5 min apart, then call 911) NITROSTAT 0.4 MG SUBL 245957 NITROGLYCERIN Inactive LOVASTATIN 40 MG TABS 1 pill by mouth nightly for cholesterol LOVASTATIN 40 MG TABS 134782 LOVASTATIN Inactive CEFDINIR 300 MG ORAL CAPS take 1 cap po bid x 10 days CEFDINIR 300 MG ORAL CAPS 359719 CEFDINIR Inactive ACEBUTOLOL HCL 200 MG CAPS 1 cap in the morning and 2 caps in the evening ACEBUTOLOL HCL 200 MG CAPS 546732 ACEBUTOLOL HCL Inactive VENTOLIN HFA 108 (90 BASE) MCG/ACT AERS 2 -4 puffs four times a day PRN 2013 VENTOLIN HFA 108 (90 BASE) MCG/ACT AERS ALBUTEROL SULFATE Inactive LEVAQUIN 500 MG ORAL TABS Take 1 tab po daily x 8 days LEVAQUIN 500 MG ORAL TABS 868749 LEVOFLOXACIN Inactive PREDNISONE 20 MG TAB 2 tabs daily for 4 days, 1 tab daily for 4 days, 1/2 tab daily for 4 days PREDNISONE 20 MG TAB 175111 PREDNISONE Inactive LOVASTATIN 40 MG ORAL TABS Take 1 tab po every hs LOVASTATIN 40 MG ORAL TABS 677717 LOVASTATIN Inactive DILAUDID 2 MG ORAL TABS Take 1/2 tab po every 4 hours as needed for pain 2014 DILAUDID 2 MG ORAL TABS 645343 HYDROMORPHONE HCL Inactive AMITRIPTYLINE HCL 25 MG ORAL TABS 1 q hs prn AMITRIPTYLINE HCL 25 MG ORAL TABS 183031 AMITRIPTYLINE HCL Inactive MECLIZINE HCL 25 MG TAB 1 tablet three times daily for 3 days, then 1/2 tab three times daily for 3 days. MECLIZINE HCL 25 MG TAB 835245 MECLIZINE HCL Inactive AMLODIPINE BESYLATE 5 MG ORAL TABS Take 1 tab po daily AMLODIPINE BESYLATE 5 MG ORAL TABS 333333 AMLODIPINE BESYLATE Inactive TOPIRAMATE 25 MG TABS 1 tab po BID TOPIRAMATE 25 MG TABS 725733 TOPIRAMATE Inactive PREDNISONE 20 MG TAB 1 tablet twice daily for 2 days, then 1 tablet once daily for 2 days PREDNISONE 20 MG TAB 934654 PREDNISONE Inactive PREDNISONE 20 MG TAB 1 tab twice daily for 3 day, then one daily for three days PREDNISONE 20 MG TAB 009078 PREDNISONE Inactive NIFEDIPINE ER 30 MG ORAL [id number] 1 daily NIFEDIPINE ER 30 MG ORAL [id number] NIFEDIPINE Inactive AMLODIPINE BESYLATE 5 MG TABS 1 tablet by mouth daily AMLODIPINE BESYLATE 5 MG TABS 511040 AMLODIPINE BESYLATE Inactive AZITHROMYCIN 250 MG TABS 2 po qd x 1 day, then 1 po qd x 4 days AZITHROMYCIN 250 MG TABS 8797391 AZITHROMYCIN Inactive AZITHROMYCIN 250 MG TABS 2 po qd x 1 day, then 1 po qd x 4 days AZITHROMYCIN 250 MG TABS 1679545 AZITHROMYCIN Inactive PREDNISONE 20 MG TAB 2 po qd x 5 days PREDNISONE 20 MG TAB 545178 PREDNISONE Inactive Vital Signs Date Name Value [...] Panel - Chemistry sodium, serum 137 mmol/L 374-926 1812/01/03 potassium, serum 3.4 mmol/L 3.5-5.2 chloride, serum 102 mmol/L 98-107 carbon dioxide, venous blood 29.2 mmol/L 21.0-32.0 blood glucose 87 mg/dL 65-110 calcium, serum 8.5 mg/dL 8.5-10.1 urea nitrogen, blood 8 mg/dL 7-18 creatinine, serum 0.82 mg/dL 0.55-1.30 Lab Report: CBC - Hematology erythrocyte (RBC) count 4.09 10^6/MM^3 10*6/mm3 4.04-5.48 leukocyte count, blood 5.6 10^3/MM^3 10*3/mm3 4.6-10.2 mean corpuscular hemoglobin, RBC 32.8 pg 27.0-31.2 mean corpuscular hemoglobin concentration, RBC 34.3 G/DL % 31.8- 35.4 red blood cell distribution width 13.9 % 11.6-14.8 platelet count 182 10^3/MM^3 10*3/mm3 130-068 1221/08/08 hematocrit, blood 39.2 % 36.0-46.0 mean corpuscular volume, RBC 96 fL 80-97 hemoglobin, blood 13.4 g/dL 12.0-16.0 Lab Report: [...] 0.40 mg/dL 0.00-1.00 sodium, serum 142 mmol/L 496-943 0135/08/08 LDL cholesterol, serum 96 mg/dL 0-130 HDL [...] 10.0-20.0 Encounters Code Encounter Date Provider Facility CPT-39260 Level 4 Est. Patient 10:19:23 CDT Harinder Cr [facility] CPT-66215 Level 3 Est. Patient 09:58:58 CDT Harinder Cr [facility] CPT-01504 Level 3 Est. Patient 12:37:21 CDT Harinder Cr [facility] CPT-12165 Level 3 Est. Patient 18:37:17 CDT Harinder Cr [facility] CPT-51320 Level 4 Est. Patient 11:15:54 CDT Nettie Newberry [facility] CPT-02786 Level 3 Est. Patient 16:42:24 CDT Harinder Cr [facility] CPT-09983 Level 3 Est. Patient 15:03:36 CDT Harinder Cr [facility] CPT-82438 Level 3 Est. Patient 15:03:20 CDT Harinder Cr [facility] CPT-66545 Level 3 Est. Patient 12:14:[address] [facility] CPT-72383 Level 3 Est. Patient 13:47:[address] [facility] CPT-61465 Level 3 Est. Patient 14:08:[address] [facility] CPT-00756 Level 3 Est. Patient 10:07:[address] [facility] CPT-28611 Level 3 Est. Patient 10:06:[address] [facility] CPT-69594 Level 3 Est. Patient 15:53:29 CDT Jae Morgan [facility] CPT-92909 Level 3 Est. Patient 17:19:[address] [facility] CPT-83358 Level 3 Est. Patient 11:13:[address] [facility] CPT-25299 Level 3 Est. Patient 09:03:58 CDT Harinder Cr [facility] CPT-15531 Level 3 Est. Patient 14:46:45 DIRECTOR APPOINTMENT Harinder Hernandez [facility] CPT-15610 Level 3 Est. Patient 09:35:49 DIRECTOR APPOINTMENT Harinder Hernandez [facility] CPT-06036 Level 3 Est. Patient 09:29:37 DIRECTOR APPOINTMENT Harinder Hernandez [facility] CPT-68214 Level 3 Est. Patient 15:51:[address] [facility] CPT-81672 Level 3 Est. Patient 18:13:13 CDT Harinder Shaye Hernandez [facility] CPT-92336 Level 3 Est. Patient 10:44:19 CDT Harinder Cr [facility] CPT-31398 Level 4 Est. Patient 10:07:19 DIRECTOR APPOINTMENT Harinder Cr [facility] CPT-70549 Level 3 Est. Patient 15:59:32 DIRECTOR APPOINTMENT Harinder Cr [facility] Procedures Code Procedure Name Date Entry Date Standard Description CPT-21197 Hip, complete, 2-3 views - XRAY USE ONLY 10:28:40 CDT CPT-31124 BMP - LAB USE ONLY 16:45:09 DIRECTOR APPOINTMENT CPT-86414 Port a cath flush 12:00:13 DIRECTOR APPOINTMENT CPT-TCMM Transitional Care Mgmt-Moderate 11:20:16 DIRECTOR APPOINTMENT CPT-28401 First Vx - Ix admin for Medicare patients 17:35:15 CDT CPT-25194 Fluzone Preservative Free Intramuscular Suspension 17:35 :15 CDT CPT-89174 Microalbumin - LAB USE ONLY 11:52:05 CDT CPT-TCMM Transitional Care Mgmt-Moderate 11:33:57 CDT CPT-04111 No Charge Offi Visit 14:11:29 CDT CPT-84574 Magnesium - LAB USE ONLY 10:45:44 CDT CPT-35814 Lipid - LAB USE ONLY 10:45:44 CDT CPT-89703 CBC - LAB USE ONLY 10:45:44 CDT CPT-92819 Venipuncture Draw Fee 10:45:43 CDT CPT-12561 Venipuncture Draw Fee 18:21:27 CDT CPT-JTINJ Asp/Joint Injection 18:38:04 CDT CPT-75501 Immunization Each Additional Inj 17:38:04 CDT CPT-94986 Immunization Single Admin 17:38:04 CDT CPT-79533 Prevnar 13 17:38:04 CDT CPT-12527 Fluzone Quadrivalent preservative free (>=3yrs.) 17:38: 04 CDT CPT-66195 No Charge Offi Visit 11:14:03 CDT CPT-71180 Chest 2V Frontal and Lat 14:00:18 CDT CPT-OV Office Visit 16:10:28 CDT CPT-JTINJ Asp/Joint Injection 09:03:57 CDT CPT-Cryo Cryotherapy 09:35:49 DIRECTOR APPOINTMENT CPT-JTINJ Asp/Joint Injection 09:34:45 DIRECTOR APPOINTMENT CPT-J2930 Solu Medrol 125 mg (Methyl Prednisolone Sodium Succinate) 20:37:27 CDT CPT-81161 Abx/Therapy Injection 20:37:27 CDT CPT-97714 Port a cath flush 08:15:51 CDT CPT-79637 Port a cath flush 09:54:16 CDT CPT-84793 Port a cath flush 09:38:02 CDT CPT-89717 Port a cath flush 11:00:27 DIRECTOR APPOINTMENT
--- OUTSIDE RECORDS SUMMARY | 2017-12-29 04:43 | XMS REPORT | Clinical Summary ---
Author Author Admin, QIE Organization [facility] [email or web address] Address Unknown Phone Unavailable Allergies, Adverse Reactions, [...] CR-TABS 1 po q day POTASSIUM CHLORIDE 07654609433 Active Kortney Mccain Active POTASSIUM CHLORIDE 20 MEQ ORAL PACK 1 tab po q day POTASSIUM CHLORIDE 63308567846 No Longer Active Kortney Mccain Active POTASSIUM CHLORIDE CR 10 MEQ CPCR 1 capsule BID POTASSIUM CHLORIDE 35178801230 No Longer Active Kortney Mccain Active LASIX 20 MG TAB 1 tablet by mouth every morning FUROSEMIDE 67471013738 No Longer Active Kortney Mccain Active SPIRONOLACTONE 25 MG TAB 1 tablet by mouth daily SPIRONOLACTONE 53820015071 Active Ciera Pimentel Active FLUOXETINE HCL 10 MG ORAL CAPS 1 po qd for depression/anxiety FLUOXETINE HCL 24599764099 Active Harinder Hernandez DO Active VOLTAREN 1 % GEL apply q 6-8 hour to left arm as needed for pain DICLOFENAC SODIUM 59357142465 Active Harinder W David DO Active ALBUTEROL SULFATE 0.083 % NEBU SOLN 1 vial neb q 4hrs for severe asthma. 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 FLUTICASONE PROPIONATE HFA 67130968961 Active Harinder Hernandez DO Active EPIPEN 2-BRUNA 0.3 MG/0.3ML INJ SOAJ 1 INJ NEEDED EPINEPHRINE 03446947040 Active Harinder Hernandez DO Active PREDNISONE 20 MG TAB 1 tab twice daily for 3 day, then one daily for three days PREDNISONE 41326155649 No Longer Active Harinder Hernandez DO Active PREDNISONE 20 MG TAB 1 tablet twice daily for 2 days, then 1 tablet once daily for 2 days PREDNISONE 84809044272 No Longer Active Harinder Hernandze DO Active ASMANEX 120 METERED DOSES 220 MCG/INH INH AEPB 2 puffs orally twice daily MOMETASONE FUROATE 69907122984 Active Jeri Sosa LPN Active TOPIRAMATE 25 MG TABS 1 tab po BID TOPIRAMATE 77297049372 No Longer Active Nettie Newberry APRN Active AMLODIPINE BESYLATE 5 MG ORAL TABS Take 1 tab po daily AMLODIPINE BESYLATE 89525253581 No Longer Active Nettie Newberry APRN Active MECLIZINE HCL 25 MG TAB 1 tablet three times daily for 3 days, then 1/2 tab three times daily for 3 days. MECLIZINE HCL 58752730417 No Longer Active Nettieog Newberry APRN Active AMITRIPTYLINE HCL 25 MG ORAL TABS 1 q hs prn AMITRIPTYLINE HCL 26151239207 No Longer Active Nettie Newberry APRN Active DILAUDID 2 MG ORAL TABS Take 1/2 tab po every 4 hours as needed for pain 2014 HYDROMORPHONE HCL 05231852565 No Longer Active Nettieog Newberry APRN Active CLOPIDOGREL BISULFATE 75 MG ORAL TABS 1 tab by mouth once daily CLOPIDOGREL BISULFATE 00963568378 Active Harinder Hernandez DO Active ATORVASTATIN CALCIUM 10 MG ORAL TABS 1 at bedtime ATORVASTATIN CALCIUM 05174616159 Active Harinder Hernandez DO Active LOVASTATIN 40 MG ORAL TABS Take 1 tab po every hs LOVASTATIN 08827282599 No Longer Active Harinder Hernandez DO Active PREDNISONE 20 MG TAB 2 tabs daily for 4 days, 1 tab daily for 4 days, 1/2 tab daily for 4 days PREDNISONE 53410329215 No Longer Active Harinder Hernandez DO Active LEVAQUIN 500 MG ORAL TABS Take 1 tab po daily x 8 days LEVOFLOXACIN 05779313079 No Longer Active Harinder Hernandez DO Active VENTOLIN HFA 108 (90 BASE) MCG/ACT AERS 2 -4 puffs four times a day PRN 2013 ALBUTEROL SULFATE 77840511322 No Longer Active Jeri Sosa LPN Active ACEBUTOLOL HCL 200 MG CAPS 1 cap in the morning and 2 caps in the evening ACEBUTOLOL HCL 65250605888 No Longer Active Harinder Hernandez DO Active CEFDINIR 300 MG ORAL CAPS take 1 cap po bid x 10 days CEFDINIR 46048402177 No Longer Active Harinder Hernandez DO Active LOVASTATIN 40 MG TABS 1 pill by mouth nightly for cholesterol LOVASTATIN 13160689248 No Longer Active Nettie Newberry APRN Active NITROSTAT 0.4 MG SUBL 1 tab under tongueas needed for chest pain ( may take 3 total, 5 min apart, then call 911) NITROGLYCERIN 09852657422 No Longer Active Nettie Newberry MAHENDRA Active POTASSIUM CHLORIDE CR 10 MEQ CPCR 1 capsule by mouth daily 02/14 POTASSIUM CHLORIDE 62228710048 No Longer Active Nettie Newberry MAHENDRA Active TESSALON PERLES 100 MG CAP 1 to 2 tablets by mouth 3 times daily as needed for cough BENZONATATE 30193839387 No Longer Active Nettie Newberry MAHENDRA Active THEOPHYLLINE ER 200 MG ORAL [id number] Take 1 tab every 12 hours THEOPHYLLINE 04149220998 Active Harinder Hernandez DO Active PREDNISONE 20 MG TAB 2 po qd x 5 days PREDNISONE 39669048968 No Longer Active Jae Morgan MD Active AZITHROMYCIN 250 MG TABS 2 po qd x 1 day, then 1 po qd x 4 days AZITHROMYCIN 75349216655 No Longer Active Jae Morgan MD Active PREDNISONE 20 MG TAB 1 tab twice daily for 3 day, then one daily for three days PREDNISONE 97717632469 No Longer Active Jae Moragn MD Active SINGULAIR 10 MG TABS 1 pill by mouth every evening for breathing. MONTELUKAST SODIUM 78533578773 Active Tawnya Pardo MA Active TYLENOL 325 MG TAB 3 by mouth q4h as needed ACETAMINOPHEN 67119586086 Active Harinder Hernandez DO Active POTASSIUM CHLORIDE ER 10 MEQ CR-TABS take 1 tab po daily POTASSIUM CHLORIDE 31653308586 No Longer Active Harinder Hernandez DO Active PREDNISONE 20 MG TAB 1 TID x 2 days, then 1 BID x 3 days, then 1 Daily x 3 days, then stop PREDNISONE 12511123317 No Longer Active Jialec Frashai BRICEÑON Active LEVAQUIN 500 MG TAB 1 tablet by mouth daily LEVOFLOXACIN 76145903941 No Longer Active Jillina Frazell SHEET LAYER Active NEURONTIN 300 MG CAP 1 cap by mouth three times daily for restless leg 06/22 GABAPENTIN 51895539804 No Longer Active Harinder Hernandez DO Active BENZONATATE 100 MG CAPS 1 cap po TID PRN BENZONATATE 73665036113 No Longer Active Harinder Hernandez DO Active MONTELUKAST SODIUM 10 MG TABS 1 tab po in the evening MONTELUKAST SODIUM 31435607476 No Longer Active Harinder Hernandez DO Active MUPIROCIN 2 % OINT apply to affected area BID x 14 days MUPIROCIN 58798894492 No Longer Active Harinder Hernandez DO Active TYLENOL EXTRA STRENGTH 500 MG TABS as needed ACETAMINOPHEN 44916433935 No Longer Active Harinder Hernandez DO Active PREDNISONE 10 MG TABS 1 tab po daily PREDNISONE 07206023802 No Longer Active Harinder Hernandez DO Active PREDNISONE 20 MG TAB 2 tabs daily for 4 days, 1 tab daily for 4 days, 1/2 tab daily for 4 days PREDNISONE 80739940858 No Longer Active Harinder Hernandez DO Active AZITHROMYCIN 250 MG TABS 2 po qd x 1 day, then 1 po qd x 4 days AZITHROMYCIN 39144927953 No Longer Active Harinder Hernandez DO Active PREDNISONE 20 MG TAB 3 tabs today, then 1 tab twice daily for 3 day, then one daily for three days PREDNISONE 20330594919 No Longer Active Harinder Hernandez DO Active NIFEDIAC CC 30 MG [id number] 1 tablet daily for raynaud's syndrome NIFEDIPINE 24009737619 No Longer Active Tawnya Pardo MA Active AMBIEN 10 MG TAB 1/2 tab by mouth at bedtime as needed for sleep ZOLPIDEM TARTRATE 94627176623 Active Harinder Hernandez DO Active CLONAZEPAM 1 MG TABS 1 tablet at bedtime for insomnia and restless legs 09/14 CLONAZEPAM 45566369188 Active Harinder Hernandez DO Active CLONAZEPAM 0.5 MG TABS 1 tab po daily CLONAZEPAM 20873654893 No Longer Active Harinder Hernandez DO Active PREDNISONE 10 MG TAB 1 tablet daily for COPD PREDNISONE 72967073693 Active Harinder Hernandez DO Active PROAIR HFA 108 (90 BASE) MCG/ACT AERS 2 puffs four times a day as needed 2012 ALBUTEROL SULFATE 93952087584 Active Harinder Hernandez DO Active FLOVENT HFA 110 MCG/ACT AERO 2 puffs inhaled b.i.d. FLUTICASONE PROPIONATE HFA 94091237095 Active Kortney Mccain Active ACIPHEX 20 MG TBEC 1 tab po daily RABEPRAZOLE SODIUM 09022107225 Active Kaylah Newberry Active CLONAZEPAM 0.5 MG TABS 1 tab po daily CLONAZEPAM 0.5 MG TABS 326167 CLONAZEPAM Inactive PREDNISONE 20 MG TAB 3 tabs today, then 1 tab twice daily for 3 day, then one daily for three days PREDNISONE 20 MG TAB 877680 PREDNISONE Inactive PREDNISONE 20 MG TAB 2 tabs daily for 4 days, 1 tab daily for 4 days, 1/2 tab daily for 4 days PREDNISONE 20 MG TAB 788430 PREDNISONE Inactive PREDNISONE 10 MG TABS 1 tab po daily PREDNISONE 10 MG TABS 978285 PREDNISONE Inactive TYLENOL EXTRA STRENGTH 500 MG TABS as needed TYLENOL EXTRA STRENGTH 500 MG TABS 623901 ACETAMINOPHEN Inactive MUPIROCIN 2 % OINT apply to affected area BID x 14 days MUPIROCIN 2 % OINT 539108 MUPIROCIN Inactive MONTELUKAST SODIUM 10 MG TABS 1 tab po in the evening MONTELUKAST SODIUM 10 MG TABS 20010818 MONTELUKAST SODIUM Inactive BENZONATATE 100 MG CAPS 1 cap po TID PRN BENZONATATE 100 MG CAPS 229079 BENZONATATE Inactive NEURONTIN 300 MG CAP 1 cap by mouth three times daily for restless leg 06/22 NEURONTIN 300 MG CAP 887588 GABAPENTIN Inactive LEVAQUIN 500 MG TAB 1 tablet by mouth daily LEVAQUIN 500 MG TAB 995337 LEVOFLOXACIN Inactive PREDNISONE 20 MG TAB 1 TID x 2 days, then 1 BID x 3 days, then 1 Daily x 3 days, then stop PREDNISONE 20 MG TAB 080047 PREDNISONE Inactive POTASSIUM CHLORIDE ER 10 MEQ CR-TABS take 1 tab po daily POTASSIUM CHLORIDE ER 10 MEQ CR-TABS POTASSIUM CHLORIDE Inactive PREDNISONE 20 MG TAB 1 tab twice daily for 3 day, then one daily for three days PREDNISONE 20 MG TAB 438759 PREDNISONE Inactive TESSALON PERLES 100 MG CAP 1 to 2 tablets by mouth 3 times daily as needed for cough TESSALON PERLES 100 MG CAP 614145 BENZONATATE Inactive POTASSIUM CHLORIDE CR 10 MEQ CPCR 1 capsule by mouth daily 02/14 POTASSIUM CHLORIDE CR 10 MEQ CPCR POTASSIUM CHLORIDE Inactive NITROSTAT 0.4 MG SUBL 1 tab under tongueas needed for chest pain ( may take 3 total, 5 min apart, then call 911) NITROSTAT 0.4 MG SUBL 455941 NITROGLYCERIN Inactive LOVASTATIN 40 MG TABS 1 pill by mouth nightly for cholesterol LOVASTATIN 40 MG TABS 823953 LOVASTATIN Inactive CEFDINIR 300 MG ORAL CAPS take 1 cap po bid x 10 days CEFDINIR 300 MG ORAL CAPS 129412 CEFDINIR Inactive ACEBUTOLOL HCL 200 MG CAPS 1 cap in the morning and 2 caps in the evening ACEBUTOLOL HCL 200 MG CAPS 766753 ACEBUTOLOL HCL Inactive VENTOLIN HFA 108 (90 BASE) MCG/ACT AERS 2 -4 puffs four times a day PRN 2013 VENTOLIN HFA 108 (90 BASE) MCG/ACT AERS ALBUTEROL SULFATE Inactive LEVAQUIN 500 MG ORAL TABS Take 1 tab po daily x 8 days LEVAQUIN 500 MG ORAL TABS 737735 LEVOFLOXACIN Inactive PREDNISONE 20 MG TAB 2 tabs daily for 4 days, 1 tab daily for 4 days, 1/2 tab daily for 4 days PREDNISONE 20 MG TAB 690814 PREDNISONE Inactive LOVASTATIN 40 MG ORAL TABS Take 1 tab po every hs LOVASTATIN 40 MG ORAL TABS 677636 LOVASTATIN Inactive DILAUDID 2 MG ORAL TABS Take 1/2 tab po every 4 hours as needed for pain 2014 DILAUDID 2 MG ORAL TABS 670094 HYDROMORPHONE HCL Inactive AMITRIPTYLINE HCL 25 MG ORAL TABS 1 q hs prn AMITRIPTYLINE HCL 25 MG ORAL TABS 349467 AMITRIPTYLINE HCL Inactive MECLIZINE HCL 25 MG TAB 1 tablet three times daily for 3 days, then 1/2 tab three times daily for 3 days. MECLIZINE HCL 25 MG TAB 109155 MECLIZINE HCL Inactive AMLODIPINE BESYLATE 5 MG ORAL TABS Take 1 tab po daily AMLODIPINE BESYLATE 5 MG ORAL TABS 036508 AMLODIPINE BESYLATE Inactive TOPIRAMATE 25 MG TABS 1 tab po BID TOPIRAMATE 25 MG TABS 604628 TOPIRAMATE Inactive PREDNISONE 20 MG TAB 1 tablet twice daily for 2 days, then 1 tablet once daily for 2 days PREDNISONE 20 MG TAB 008521 PREDNISONE Inactive PREDNISONE 20 MG TAB 1 tab twice daily for 3 day, then one daily for three days PREDNISONE 20 MG TAB 456928 PREDNISONE Inactive NIFEDIPINE ER 30 MG ORAL [id number] 1 daily NIFEDIPINE ER 30 MG ORAL [id number] NIFEDIPINE Inactive AMLODIPINE BESYLATE 5 MG TABS 1 tablet by mouth daily AMLODIPINE BESYLATE 5 MG TABS 908578 AMLODIPINE BESYLATE Inactive LASIX 20 MG TAB 1 tablet by mouth every morning LASIX 20 MG TAB 450847 FUROSEMIDE Inactive POTASSIUM CHLORIDE CR 10 MEQ CPCR 1 capsule BID POTASSIUM CHLORIDE CR 10 MEQ CPCR POTASSIUM CHLORIDE Inactive POTASSIUM CHLORIDE 20 MEQ ORAL PACK 1 tab po q day POTASSIUM CHLORIDE 20 MEQ ORAL PACK 9503856 POTASSIUM CHLORIDE Inactive AZITHROMYCIN 250 MG TABS 2 po qd x 1 day, then 1 po qd x 4 days AZITHROMYCIN 250 MG TABS 5363222 AZITHROMYCIN Inactive AZITHROMYCIN 250 MG TABS 2 po qd x 1 day, then 1 po qd x 4 days AZITHROMYCIN 250 MG TABS 5174361 AZITHROMYCIN Inactive PREDNISONE 20 MG TAB 2 po qd x 5 days PREDNISONE 20 MG TAB 937594 PREDNISONE Inactive Vital Signs Date Name Value [...] Panel - Chemistry sodium, serum 137 mmol/L 486-291 9015/01/03 potassium, serum 3.4 mmol/L 3.5-5.2 chloride, serum 102 mmol/L 98-107 carbon dioxide, venous blood 29.2 mmol/L 21.0-32.0 blood glucose 87 mg/dL 65-110 calcium, serum 8.5 mg/dL 8.5-10.1 urea nitrogen, blood 8 mg/dL 7-18 creatinine, serum 0.82 mg/dL 0.55-1.30 sodium, serum 140 mmol/L 996-159 0959/07/13 potassium, serum 3.2 mmol/L 3.5-5.2 chloride, serum 103 mmol/L 98-107 carbon dioxide, venous blood 26.9 mmol/L 21.0-32.0 blood glucose 93 mg/dL 65-110 calcium, serum 9.2 mg/dL 8.5-10.1 urea nitrogen, blood 13 mg/dL 7-18 creatinine, serum 0.84 mg/dL 0.60-1.30 sodium, serum 140 mmol/L 697-399 9224/08/21 potassium, serum 3.8 mmol/L 3.5-5.2 chloride, serum [...] ... - Chemistry sodium, serum 141 mmol/L 112-592 8327/08/07 carbon dioxide, venous blood 34.0 mmol/L 21.0-32.0 [...] 0-19 Encounters Code Encounter Date Provider Facility CPT-15822 Level 4 Est. Patient 14:45:25 CDT Harinder Hernandez [facility] CPT-83755 Level 4 Est. Patient 09:15:13 CDT Harinder Cr [facility] CPT-80385 Level 3 Est. Patient 11:51:58 CDT Harinder Cr [facility] CPT-20996 Level 3 Est. Patient 11:30:05 CDT Harinder Cr [facility] CPT-41175 Level 4 Est. Patient 10:19:23 CDT Harinder Cr [facility] CPT-11698 Level 3 Est. Patient 09:58:58 CDT Harinder Cr [facility] CPT-90068 Level 3 Est. Patient 12:37:21 CDT Harinder Cr [facility] CPT-35698 Level 3 Est. Patient 18:37:17 CDT Harinder Cr [facility] CPT-70066 Level 4 Est. Patient 11:15:54 CDT Nettie Rohith [facility] CPT-63468 Level 3 Est. Patient 16:42:24 CDT Harinder Cr [facility] CPT-27242 Level 3 Est. Patient 15:03:36 CDT Harinder Cr [facility] CPT-78844 Level 3 Est. Patient 15:03:20 CDT Harinder Cr [facility] CPT-12704 Level 3 Est. Patient 12:14:34 CDT Harinder Cr [facility] CPT-24712 Level 3 Est. Patient 13:47:15 CDT Harinder Cr [facility] CPT-93342 Level 3 Est. Patient 14:08:24 CDT Harinder Cr [facility] CPT-35099 Level 3 Est. Patient 10:07:15 CDT Harinder Hernandez [facility] CPT-16279 Level 3 Est. Patient 10:06:59 CDT Harinder Hernandez [facility] CPT-13930 Level 3 Est. Patient 15:53:29 CDT Jae Morgan MD [facility] CPT-16271 Level 3 Est. Patient 17:19:04 CDT Harinder Hernandez [facility] CPT-69218 Level 3 Est. Patient 11:13:01 CDT Harinder Shaye Hernandez [facility] CPT-60473 Level 3 Est. Patient 09:03:58 CDT Harinder Hernandez [facility] CPT-02173 Level 3 Est. Patient 14:46:45 [employer] Harinder Shaye David [facility] CPT-16275 Level 3 Est. Patient 09:35:49 [employer] COMMUNITY MANAGER Harinder Hernandez [facility] CPT-64154 Level 3 Est. Patient 09:29:37 [employer] COMMUNITY MANAGER Harinder Hernandez [facility] CPT-87604 Level 3 Est. Patient 15:51:07 CDT Harinder Hernandez [facility] CPT-75388 Level 3 Est. Patient 18:13:13 CDT Harinder Cr David [facility] CPT-99430 Level 3 Est. Patient 10:44:19 CDT Harinder Hernandez [facility] CPT-71874 Level 4 Est. Patient 10:07:19 [employer] COMMUNITY MANAGER Harinder Cr [facility] CPT-42518 Level 3 Est. Patient 15:59:32 [employer] COMMUNITY MANAGER Harinder Cr [facility] Procedures Code Procedure Name Date Entry Date Standard Description CPT-76593 Abd compl w upright - XRAY USE ONLY 14:48:09 CDT 02/18 CPT-60188 Port a cath flush 13:46:05 CDT CPT-67019 Hip, complete, 2-3 views - XRAY USE ONLY 10:28:40 CDT CPT-91335 BMP - LAB USE ONLY 16:45:09 [employer] MANAGER CPT-73824 Port a cath flush 12:00:13 SOC[employer] COMMUNITY MANAGER CPT-TCMM Transitional Care Mgmt-Moderate 11:20:16 [employer] COMMUNITY MANAGER CPT-68087 First Vx - Ix admin for Medicare patients 17:35:15 CDT CPT-41806 Fluzone Preservative Free Intramuscular Suspension 17:35 :15 CDT CPT-17891 Microalbumin - LAB USE ONLY 11:52:05 CDT CPT-TCMM Transitional Care Mgmt-Moderate 11:33:57 CDT CPT-50508 No Charge Offi Visit 14:11:29 CDT CPT-53008 Magnesium - LAB USE ONLY 10:45:44 CDT CPT-66768 Lipid - LAB USE ONLY 10:45:44 CDT CPT-09693 CBC - LAB USE ONLY 10:45:44 CDT CPT-70003 Venipuncture Draw Fee 10:45:43 CDT CPT-61018 Venipuncture Draw Fee 18:21:27 CDT CPT-JTINJ Asp/Joint Injection 18:38:04 CDT CPT-52396 Immunization Each Additional Inj 17:38:04 CDT CPT-24029 Immunization Single Admin 17:38:04 CDT CPT-96075 Prevnar 13 17:38:04 CDT CPT-96107 Fluzone Quadrivalent preservative free (>=3yrs.) 17:38: 04 CDT CPT-65341 No Charge Offi Visit 11:14:03 CDT CPT-75810 Chest 2V Frontal and Lat 14:00:18 CDT CPT-OV Office Visit 16:10:28 CDT CPT-JTINJ Asp/Joint Injection 09:03:57 CDT CPT-Cryo Cryotherapy 09:35:49 [employer] COMM[employer]ITY MANAGER CPT-JTINJ Asp/Joint Injection 09:34:45 [employer] COMMUNITY MANAGER CPT-J2930 Solu Medrol 125 mg (Methyl Prednisolone Sodium Succinate) 20:37:27 CDT CPT-76513 Abx/Therapy Injection 20:37:27 CDT CPT-10572 Port a cath flush 08:15:51 CDT CPT-72134 Port a cath flush 09:54:16 CDT CPT-01991 Port a cath flush 09:38:02 CDT CPT-98790 Port a cath flush 11:00:27 SOC[employer] COMMUNITY MANAGER
--- OUTSIDE RECORDS SUMMARY | 2017-12-29 04:45 | XMS REPORT | Clinical Summary ---
Author Author Admin, QIE Organization [facility] [employer] Address Unknown Phone Unavailable Allergies, Adverse Reactions, [...] + D3 TABLET CALCIUM CARBONATE-VITAMIN D TABS 54146629128 Active Meenu Alejo LPN Active SPIRONOLACTONE 25 MG ORAL TABLET 1 tablet by mouth daily SPIRONOLACTONE 42602905726 No Longer Active Jeri Nieto Active PREDNISONE 20 MG ORAL TABLET 2 tablets by mouth today, then 1 tablet by mouth days 2-3 PREDNISONE 82910815767 No Longer Active Jeri Nieto Active NITROSTAT 0.4 MG SUBLINGUAL TABLET SUBLINGUAL 1 tab SL q5min PRN chest pain NITROGLYCERIN 50575687303 Active Meenu Alejo LPN Active THEOPHYLLINE ER 300 MG ORAL TABLET EXTENDED RELEASE 12 HOUR 1 po BID THEOPHYLLINE 35820639987 Active Meeun Alejo LPN Active POTASSIUM CHLORIDE ER 20 MEQ ORAL TABLET EXTENDED RELEASE 1 po q day POTASSIUM CHLORIDE 41252190708 Active Kortney Mccain Active POTASSIUM CHLORIDE 20 MEQ ORAL PACKET 1 tab po q day POTASSIUM CHLORIDE 20759431320 No Longer Active Kortney Mccain Active POTASSIUM CHLORIDE ER 10 MEQ ORAL CAPSULE EXTENDED RELEASE 1 capsule BID 2016 POTASSIUM CHLORIDE 31370861916 No Longer Active Kortney Mccain Active LASIX 20 MG ORAL TABLET 1 tablet by mouth every morning FUROSEMIDE 03342906050 No Longer Active Kortney Mccain Active FLUOXETINE HCL 10 MG ORAL CAPSULE 1 po qd for depression/anxiety FLUOXETINE HCL 81589525349 Active Meenu Alejo LPN Active VOLTAREN 1 % TRANSDERMAL GEL apply q 6-8 hour to left arm as needed for pain DICLOFENAC SODIUM 86051637215 Active Kortney Mccain Active ALBUTEROL SULFATE (2.5 MG/3ML) 0.083% INHALATION NEBULIZATION SOLUTION 1 vial neb q 4hrs for severe asthma. 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 NIFEDIPINE 17166432113 Active Kortney Mccain Active AMLODIPINE BESYLATE 5 MG ORAL TABLET 1 tablet by mouth daily 2016 AMLODIPINE BESYLATE 99735850736 No Longer Active Harinder Hernandez DO Active TOPAMAX 25 MG ORAL TABLET 1 tab po BID TOPIRAMATE 02251322835 Active Kortney Mccain Active FLUTICASONE PROPIONATE 50 MCG/ACT NASAL SUSPENSION 2 sprays per nostril daily PRN Allergies FLUTICASONE PROPIONATE 60360783802 Active Meenu Alejo LPN Active NIFEDIPINE ER 30 MG ORAL TABLET EXTENDED RELEASE 24 HOUR 1 daily NIFEDIPINE 09349716821 No Longer Active Harinder Hernandez DO Active FLOVENT HFA 110 MCG/ACT INHALATION AEROSOL 2 puffs inhaled b.i.d. FLUTICASONE PROPIONATE HFA 05095665093 Active Harinder Hernandez DO Active EPIPEN 2-BRUNA 0.3 MG/0.3ML INJECTION SOLUTION AUTO-INJECTOR 1 INJ NEEDED EPINEPHRINE 54186383850 Active Meenu Alejo LPN Active PREDNISONE 20 MG ORAL TABLET 1 tab twice daily for 3 day, then one daily for three days PREDNISONE 98853466343 No Longer Active Harinder Hernandez DO Active PREDNISONE 20 MG ORAL TABLET 1 tablet twice daily for 2 days, then 1 tablet once daily for 2 days PREDNISONE 50133080146 No Longer Active Harinder Hernandez DO Active ASMANEX 120 METERED DOSES 220 MCG/INH INHALATION AEROSOL POWDER BREATH ACTIVATED 2 puffs orally twice daily MOMETASONE FUROATE 05088024236 Active Jeri Sosa LPN Active TOPIRAMATE 25 MG ORAL TABLET 1 tab po BID TOPIRAMATE 48430765417 No Longer Active Nettie Newberry APRN Active AMLODIPINE BESYLATE 5 MG ORAL TABLET Take 1 tab po daily AMLODIPINE BESYLATE 79381341784 No Longer Active Nettie Newberry APRN Active MECLIZINE HCL 25 MG ORAL TABLET 1 tablet three times daily for 3 days, then 1/ 2 tab three times daily for 3 days. MECLIZINE HCL 77490606770 No Longer Active Nettie Newberry APRN Active AMITRIPTYLINE HCL 25 MG ORAL TABLET 1 q hs prn AMITRIPTYLINE HCL 44811989507 No Longer Active Nettie Newberry APRN Active DILAUDID 2 MG ORAL TABLET Take 1/2 tab po every 4 hours as needed for pain HYDROMORPHONE HCL 47283904347 No Longer Active Nettie Newberry APRN Active CLOPIDOGREL BISULFATE 75 MG ORAL TABLET 1 tab by mouth once daily CLOPIDOGREL BISULFATE 29790008299 Active Meenu Alejo LPN Active ATORVASTATIN CALCIUM 10 MG ORAL TABLET 1 at bedtime ATORVASTATIN CALCIUM 17807158994 Active Kortney Mccain Active LOVASTATIN 40 MG ORAL TABLET Take 1 tab po every hs LOVASTATIN 47643171083 No Longer Active Harinder Hernandez DO Active PREDNISONE 20 MG ORAL TABLET 2 tabs daily for 4 days, 1 tab daily for 4 days, 1/2 tab daily for 4 days PREDNISONE 64619704819 No Longer Active Harinder Hernandez DO Active LEVAQUIN 500 MG ORAL TABLET Take 1 tab po daily x 8 days LEVOFLOXACIN 35748726273 No Longer Active Harinder Hernandez DO Active VENTOLIN HFA 108 (90 Base) MCG/ACT INHALATION AEROSOL SOLUTION 2 -4 puffs four times a day PRN ALBUTEROL SULFATE 06162066263 No Longer Active Jeri Sosa LPN Active ACEBUTOLOL HCL 200 MG ORAL CAPSULE 1 cap in the morning and 2 caps in the evening ACEBUTOLOL HCL 92961653543 No Longer Active Harinder Hernandez DO Active CEFDINIR 300 MG ORAL CAPSULE take 1 cap po bid x 10 days CEFDINIR 37802490595 No Longer Active Harinder Hernandez DO Active LOVASTATIN 40 MG ORAL TABLET 1 pill by mouth nightly for cholesterol LOVASTATIN 71894250307 No Longer Active Nettie Newberry APRN Active NITROSTAT 0.4 MG SUBLINGUAL TABLET SUBLINGUAL 1 tab under tongueas needed for chest pain ( may take 3 total, 5 min apart, then call 911) NITROGLYCERIN 04553573539 No Longer Active Nettie Newberry APRN Active POTASSIUM CHLORIDE ER 10 MEQ ORAL CAPSULE EXTENDED RELEASE 1 capsule by mouth daily POTASSIUM CHLORIDE 74843479089 No Longer Active Nettie Newberry APRN Active TESSALON PERLES 100 MG ORAL CAPSULE 1 to 2 tablets by mouth 3 times daily as needed for cough BENZONATATE 20259448099 No Longer Active Nettie Newberry APRN Active PREDNISONE 20 MG ORAL TABLET 2 po qd x 5 days PREDNISONE 03662377816 No Longer Active Jae Morgan MD Active AZITHROMYCIN 250 MG ORAL TABLET 2 po qd x 1 day, then 1 po qd x 4 days 12/30 AZITHROMYCIN 37701004931 No Longer Active Jae Morgan MD Active PREDNISONE 20 MG ORAL TABLET 1 tab twice daily for 3 day, then one daily for three days PREDNISONE 12459790152 No Longer Active Jae Morgan MD Active SINGULAIR 10 MG ORAL TABLET 1 pill by mouth every evening for breathing. 2014 MONTELUKAST SODIUM 35321674835 Active Meenu Alejo LPN Active TYLENOL 325 MG ORAL TABLET 3 by mouth q4h as needed ACETAMINOPHEN 01313977165 Active Harinder Hernandez DO Active POTASSIUM CHLORIDE ER 10 MEQ ORAL TABLET EXTENDED RELEASE take 1 tab po daily POTASSIUM CHLORIDE 79333869792 No Longer Active Harinder Hernandez DO Active PREDNISONE 20 MG ORAL TABLET 1 TID x 2 days, then 1 BID x 3 days, then 1 Daily x 3 days, then stop PREDNISONE 13275423706 No Longer Active Jillina Frazell [employer] Active LEVAQUIN 500 MG ORAL TABLET 1 tablet by mouth daily LEVOFLOXACIN 99219321794 No Longer Active Jillina Frazell [employer] Active NEURONTIN 300 MG ORAL CAPSULE 1 cap by mouth three times daily for restless leg GABAPENTIN 80879661128 No Longer Active Harinder Hernandez DO Active BENZONATATE 100 MG ORAL CAPSULE 1 cap po TID PRN BENZONATATE 09089079206 No Longer Active Harinder Hernandez DO Active MONTELUKAST SODIUM 10 MG ORAL TABLET 1 tab po in the evening 2014 MONTELUKAST SODIUM 01699259298 No Longer Active Harinder Hernandez DO Active MUPIROCIN 2 % EXTERNAL OINTMENT apply to affected area BID x 14 days MUPIROCIN 79824557642 No Longer Active Harinder Hernandez DO Active TYLENOL EXTRA STRENGTH 500 MG ORAL TABLET as needed ACETAMINOPHEN 73920797490 No Longer Active Harinder Hernandez DO Active PREDNISONE 10 MG ORAL TABLET 1 tab po daily PREDNISONE 59995635564 No Longer Active Harinder Hernandez DO Active PREDNISONE 20 MG ORAL TABLET 2 tabs daily for 4 days, 1 tab daily for 4 days, 1/2 tab daily for 4 days PREDNISONE 91889452290 No Longer Active Harinder Hernandez DO Active AZITHROMYCIN 250 MG ORAL TABLET 2 po qd x 1 day, then 1 po qd x 4 days 04/06 AZITHROMYCIN 15831326252 No Longer Active Harinder Hernandze DO Active PREDNISONE 20 MG ORAL TABLET 3 tabs today, then 1 tab twice daily for 3 day, then one daily for three days PREDNISONE 76190567933 No Longer Active Harinder Hernandez DO Active NIFEDIAC CC 30 MG ORAL TABLET EXTENDED RELEASE 24 HOUR 1 tablet daily for raynaud's syndrome NIFEDIPINE 16842547243 No Longer Active Tawnya Pardo MA Active AMBIEN 10 MG ORAL TABLET 1/2 tab by mouth at bedtime as needed for sleep 2013 ZOLPIDEM TARTRATE 22121191030 Active Meenu Alejo LPN Active CLONAZEPAM 1 MG ORAL TABLET 1 tablet at bedtime for insomnia and restless legs CLONAZEPAM 44242060846 Active Meenu Alejo LPN Active CLONAZEPAM 0.5 MG ORAL TABLET 1 tab po daily CLONAZEPAM 30206499432 No Longer Active Harinder Hernandez DO Active PREDNISONE 10 MG ORAL TABLET 1 tablet daily for COPD PREDNISONE 05665116867 Active Kortney Mccain Active PROAIR HFA 108 (90 Base) MCG/ACT INHALATION AEROSOL SOLUTION 2 puffs four times a day as needed ALBUTEROL SULFATE 98905032950 Active Harinder Hernandez DO Active FLOVENT HFA 110 MCG/ACT INHALATION AEROSOL 2 puffs inhaled b.i.d. FLUTICASONE PROPIONATE HFA 41903316098 Active Kortney Mccain Active ACIPHEX 20 MG ORAL TABLET DELAYED RELEASE 1 tab po daily RABEPRAZOLE SODIUM 68780817401 Active Meenu Alejo LPN Active CLONAZEPAM 0.5 MG ORAL TABLET 1 tab po daily CLONAZEPAM 0.5 MG ORAL TABLET 439457 CLONAZEPAM Inactive PREDNISONE 20 MG ORAL TABLET 3 tabs today, then 1 tab twice daily for 3 day, then one daily for three days PREDNISONE 20 MG ORAL TABLET 695458 PREDNISONE Inactive PREDNISONE 20 MG ORAL TABLET 2 tabs daily for 4 days, 1 tab daily for 4 days, 1/2 tab daily for 4 days PREDNISONE 20 MG ORAL TABLET 662665 PREDNISONE Inactive PREDNISONE 10 MG ORAL TABLET 1 tab po daily PREDNISONE 10 MG ORAL TABLET 807310 PREDNISONE Inactive TYLENOL EXTRA STRENGTH 500 MG ORAL TABLET as needed TYLENOL EXTRA STRENGTH 500 MG ORAL TABLET 912557 ACETAMINOPHEN Inactive MUPIROCIN 2 % EXTERNAL OINTMENT apply to affected area BID x 14 days MUPIROCIN 2 % EXTERNAL OINTMENT 453378 MUPIROCIN Inactive MONTELUKAST SODIUM 10 MG ORAL TABLET 1 tab po in the evening 2014 MONTELUKAST SODIUM 10 MG ORAL TABLET 755904 MONTELUKAST SODIUM Inactive BENZONATATE 100 MG ORAL CAPSULE 1 cap po TID PRN BENZONATATE 100 MG ORAL CAPSULE 605266 BENZONATATE Inactive NEURONTIN 300 MG ORAL CAPSULE 1 cap by mouth three times daily for restless leg NEURONTIN 300 MG ORAL CAPSULE 759343 GABAPENTIN Inactive LEVAQUIN 500 MG ORAL TABLET 1 tablet by mouth daily LEVAQUIN 500 MG ORAL TABLET 371782 LEVOFLOXACIN Inactive PREDNISONE 20 MG ORAL TABLET 1 TID x 2 days, then 1 BID x 3 days, then 1 Daily x 3 days, then stop PREDNISONE 20 MG ORAL TABLET 017874 PREDNISONE Inactive POTASSIUM CHLORIDE ER 10 MEQ ORAL TABLET EXTENDED RELEASE take 1 tab po daily POTASSIUM CHLORIDE ER 10 MEQ ORAL TABLET EXTENDED RELEASE POTASSIUM CHLORIDE Inactive PREDNISONE 20 MG ORAL TABLET 1 tab twice daily for 3 day, then one daily for three days PREDNISONE 20 MG ORAL TABLET 246112 PREDNISONE Inactive TESSALON PERLES 100 MG ORAL CAPSULE 1 to 2 tablets by mouth 3 times daily as needed for cough TESSALON PERLES 100 MG ORAL CAPSULE 392555 BENZONATATE Inactive POTASSIUM CHLORIDE ER 10 MEQ ORAL CAPSULE EXTENDED RELEASE 1 capsule by mouth daily POTASSIUM CHLORIDE ER 10 MEQ ORAL CAPSULE EXTENDED RELEASE POTASSIUM CHLORIDE Inactive NITROSTAT 0.4 MG SUBLINGUAL TABLET SUBLINGUAL 1 tab under tongueas needed for chest pain ( may take 3 total, 5 min apart, then call 911) NITROSTAT 0.4 MG SUBLINGUAL TABLET SUBLINGUAL 191197 NITROGLYCERIN Inactive LOVASTATIN 40 MG ORAL TABLET 1 pill by mouth nightly for cholesterol LOVASTATIN 40 MG ORAL TABLET 821665 LOVASTATIN Inactive CEFDINIR 300 MG ORAL CAPSULE take 1 cap po bid x 10 days CEFDINIR 300 MG ORAL CAPSULE 690435 CEFDINIR Inactive ACEBUTOLOL HCL 200 MG ORAL CAPSULE 1 cap in the morning and 2 caps in the evening ACEBUTOLOL HCL 200 MG ORAL CAPSULE 124105 ACEBUTOLOL HCL Inactive VENTOLIN HFA 108 (90 Base) MCG/ACT INHALATION AEROSOL SOLUTION 2 -4 puffs four times a day PRN VENTOLIN HFA 108 (90 Base) MCG/ ACT INHALATION AEROSOL SOLUTION ALBUTEROL SULFATE Inactive LEVAQUIN 500 MG ORAL TABLET Take 1 tab po daily x 8 days LEVAQUIN 500 MG ORAL TABLET 132883 LEVOFLOXACIN Inactive PREDNISONE 20 MG ORAL TABLET 2 tabs daily for 4 days, 1 tab daily for 4 days, 1/2 tab daily for 4 days PREDNISONE 20 MG ORAL TABLET 533272 PREDNISONE Inactive LOVASTATIN 40 MG ORAL TABLET Take 1 tab po every hs LOVASTATIN 40 MG ORAL TABLET 498480 LOVASTATIN Inactive DILAUDID 2 MG ORAL TABLET Take 1/2 tab po every 4 hours as needed for pain DILAUDID 2 MG ORAL TABLET 138481 HYDROMORPHONE HCL Inactive AMITRIPTYLINE HCL 25 MG ORAL TABLET 1 q hs prn AMITRIPTYLINE HCL 25 MG ORAL TABLET 393820 AMITRIPTYLINE HCL Inactive MECLIZINE HCL 25 MG ORAL TABLET 1 tablet three times daily for 3 days, then 1/ 2 tab three times daily for 3 days. MECLIZINE HCL 25 MG ORAL TABLET 491249 MECLIZINE HCL Inactive AMLODIPINE BESYLATE 5 MG ORAL TABLET Take 1 tab po daily AMLODIPINE BESYLATE 5 MG ORAL TABLET 206462 AMLODIPINE BESYLATE Inactive TOPIRAMATE 25 MG ORAL TABLET 1 tab po BID TOPIRAMATE 25 MG ORAL TABLET 053386 TOPIRAMATE Inactive PREDNISONE 20 MG ORAL TABLET 1 tablet twice daily for 2 days, then 1 tablet once daily for 2 days PREDNISONE 20 MG ORAL TABLET 587068 PREDNISONE Inactive PREDNISONE 20 MG ORAL TABLET 1 tab twice daily for 3 day, then one daily for three days PREDNISONE 20 MG ORAL TABLET 879003 PREDNISONE Inactive NIFEDIPINE ER 30 MG ORAL TABLET EXTENDED RELEASE 24 HOUR 1 daily NIFEDIPINE ER 30 MG ORAL TABLET EXTENDED RELEASE 24 HOUR NIFEDIPINE Inactive AMLODIPINE BESYLATE 5 MG ORAL TABLET 1 tablet by mouth daily 2016 AMLODIPINE BESYLATE 5 MG ORAL TABLET 781060 AMLODIPINE BESYLATE Inactive LASIX 20 MG ORAL TABLET 1 tablet by mouth every morning LASIX 20 MG ORAL TABLET 600668 FUROSEMIDE Inactive POTASSIUM CHLORIDE ER 10 MEQ ORAL CAPSULE EXTENDED RELEASE 1 capsule BID 2016 POTASSIUM CHLORIDE ER 10 MEQ ORAL CAPSULE EXTENDED RELEASE POTASSIUM CHLORIDE Inactive POTASSIUM CHLORIDE 20 MEQ ORAL PACKET 1 tab po q day POTASSIUM CHLORIDE 20 MEQ ORAL PACKET 2980066 POTASSIUM CHLORIDE Inactive PREDNISONE 20 MG ORAL TABLET 2 tablets by mouth today, then 1 tablet by mouth days 2-3 PREDNISONE 20 MG ORAL TABLET 248338 PREDNISONE Inactive SPIRONOLACTONE 25 MG ORAL TABLET 1 tablet by mouth daily SPIRONOLACTONE 25 MG ORAL TABLET 445763 SPIRONOLACTONE Inactive AZITHROMYCIN 250 MG ORAL TABLET 2 po qd x 1 day, then 1 po qd x 4 days 04/06 AZITHROMYCIN 250 MG ORAL TABLET 124215 AZITHROMYCIN Inactive AZITHROMYCIN 250 MG ORAL TABLET 2 po qd x 1 day, then 1 po qd x 4 days 12/30 AZITHROMYCIN 250 MG ORAL TABLET 148994 AZITHROMYCIN Inactive PREDNISONE 20 MG ORAL TABLET 2 po qd x 5 days PREDNISONE 20 MG ORAL TABLET 491847 PREDNISONE Inactive Vital Signs Date Name Value [...] Panel - Chemistry sodium, serum 140 mmol/L 852-921 2139/07/13 potassium, serum 3.2 mmol/L 3.5-5.2 chloride, serum 103 mmol/L 98-107 carbon dioxide, venous blood 26.9 mmol/L 21.0-32.0 blood glucose 93 mg/dL 65-110 calcium, serum 9.2 mg/dL 8.5-10.1 urea nitrogen, blood 13 mg/dL 7-18 creatinine, serum 0.84 mg/dL 0.60-1.30 sodium, serum 140 mmol/L 845-365 0231/08/21 potassium, serum 3.8 mmol/L 3.5-5.2 chloride, serum [...] ... - Chemistry sodium, serum 141 mmol/L 466-975 3696/08/07 carbon dioxide, venous blood 34.0 mmol/L 21.0-32.0 [...] 1.40 mg/dL 0.00-1.00 cholesterol, serum 192 mg/dL 418-235 4755/10/19 triglyceride, serum, fasting 71 mg/dL 30-200 HDL cholesterol, serum 72 mg/dL 32-60 LDL cholesterol, serum 106 mg/dL 0-130 Lab Report: Rapid Strep - Lab Microbial identification kit, rapid strep method Negative Negative Lab Report: THEOPHYLLINE - Toxicology theophylline level, serum 3.1 ug/mL 10.0-20.0 Encounters Code Encounter Date Provider Facility CPT-88208 Level 4 Est. Patient 10:17:51 DIE TRIPPER Harinder Cr [facility] CPT-86082 Level 3 Est. Patient 12:36:15 DIE TRIPPER Harinder Hernandez [facility] CPT-28807 Level 3 Est. Patient 15:14:45 DIE TRIPPER Harinder Cr [facility] CPT-42063 Level 4 Est. Patient 14:45:25 CDT Harinder Cr [facility] CPT-88918 Level 4 Est. Patient 09:15:13 CDT Harinder Cr [facility] CPT-68645 Level 3 Est. Patient 11:51:58 CDT Harinder Cr [facility] CPT-71208 Level 3 Est. Patient 11:30:05 CDT Harinder Cr [facility] CPT-92774 Level 4 Est. Patient 10:19:23 CDT Harinder Cr [facility] CPT-79531 Level 3 Est. Patient 09:58:58 CDT Harinder Cr [facility] CPT-59953 Level 3 Est. Patient 12:37:21 CDT Harinder Cr [facility] CPT-73522 Level 3 Est. Patient 18:37:17 CDT Harinder Cr [facility] CPT-63816 Level 4 Est. Patient 11:15:54 CDT Nettie Newberry [facility] CPT-94687 Level 3 Est. Patient 16:42:24 CDT Harinder Cr [facility] CPT-85270 Level 3 Est. Patient 15:03:36 CDT Harinder Cr [facility] CPT-50251 Level 3 Est. Patient 15:03:20 CDT Harinder W David [facility] CPT-77663 Level 3 Est. Patient 12:14:34 CDT Harinder Hernandez [facility] CPT-31003 Level 3 Est. Patient 13:47:15 CDT Harinder Hernandez [facility] CPT-67811 Level 3 Est. Patient 14:08:24 CDT Harinder Hernandez [facility] CPT-57870 Level 3 Est. Patient 10:07:15 CDT Harinder Hernandez [facility] CPT-91411 Level 3 Est. Patient 10:06:59 CDT Harinder Hernandez [facility] CPT-74254 Level 3 Est. Patient 15:53:29 CDT Jae Morgan [facility] CPT-35012 Level 3 Est. Patient 17:19:04 CDT Harinder Hernandez [facility] CPT-93771 Level 3 Est. Patient 11:13:01 CDT Harinder Hernandez [facility] CPT-62193 Level 3 Est. Patient 09:03:58 CDT Harinder Hernandez [facility] CPT-79728 Level 3 Est. Patient 14:46:45 DIE TRIPPER Harinder Hernandez [facility] CPT-59375 Level 3 Est. Patient 09:35:49 DIE TRIPPER Harinder Hernandez [facility] CPT-57258 Level 3 Est. Patient 09:29:37 DIE TRIPPER Harinder Hernandez [facility] CPT-18318 Level 3 Est. Patient 15:51:07 CDT Harinder Hernandez [facility] CPT-17687 Level 3 Est. Patient 18:13:13 CDT Harinder Hernandez [facility] CPT-12251 Level 3 Est. Patient 10:44:19 CDT Harinder Hernandez [facility] CPT-08262 Level 4 Est. Patient 10:07:19 DIE TRIPPER Harinder Hernandez [facility] CPT-86151 Level 3 Est. Patient 15:59:32 DIE TRIPPER Harinder Hernandez [facility] -[facility] Procedures Code Procedure Name Date Entry Date Standard Description CPT-00541 Bone Density - XRAY USE ONLY 14:43:42 CDT CPT-G0009 Administration of Pneumococcal Vaccine 10:33:25 DIE TRIPPER CPT-38878 Pneumovax 23 Injection Injectable 25 MCG/0.5ML 10:33:25 DIE TRIPPER CPT-62817 First Vx - Ix admin for Medicare patients 10:33:25 DIE TRIPPER CPT-72531 Fluzone Quadrivalent Intramuscular Suspension 0.5 ML 10: 33:25 DIE TRIPPER CPT-Cryo Cryotherapy 10:17:51 DIE TRIPPER CPT-G0438 Initial Annual Wellness Exam 10:08:59 DIE TRIPPER CPT-51876 Abd compl w upright - XRAY USE ONLY 14:48:09 CDT 02/18 CPT-41453 Port a cath flush 13:46:05 CDT CPT-98200 Hip, complete, 2-3 views - XRAY USE ONLY 10:28:40 CDT CPT-32324 BMP - LAB USE ONLY 16:45:09 DIE TRIPPER CPT-30348 Port a cath flush 12:00:13 DIE TRIPPER CPT-TCMM Transitional Care Mgmt-Moderate 11:20:16 DIE TRIPPER CPT-20649 First Vx - Ix admin for Medicare patients 17:35:15 CDT CPT-84597 Fluzone Preservative Free Intramuscular Suspension 17:35 :15 CDT CPT-04470 Microalbumin - LAB USE ONLY 11:52:05 CDT CPT-TCMM Transitional Care Mgmt-Moderate 11:33:57 CDT CPT-41710 No Charge Offi Visit 14:11:29 CDT CPT-21105 Magnesium - LAB USE ONLY 10:45:44 CDT CPT-31217 Lipid - LAB USE ONLY 10:45:44 CDT CPT-77720 CBC - LAB USE ONLY 10:45:44 CDT CPT-59441 Venipuncture Draw Fee 10:45:43 CDT CPT-26608 Venipuncture Draw Fee 18:21:27 CDT CPT-JTINJ Asp/Joint Injection 18:38:04 CDT CPT-95777 Immunization Each Additional Inj 17:38:04 CDT CPT-36996 Immunization Single Admin 17:38:04 CDT CPT-03602 Prevnar 13 17:38:04 CDT CPT-13979 Fluzone Quadrivalent preservative free (>=3yrs.) 17:38: 04 CDT CPT-00850 No Charge Offi Visit 11:14:03 CDT CPT-58878 Chest 2V Frontal and Lat 14:00:18 CDT CPT-OV Office Visit 16:10:28 CDT CPT-JTINJ Asp/Joint Injection 09:03:57 CDT CPT-Cryo Cryotherapy 09:35:49 DIE TRIPPER CPT-JTINJ Asp/Joint Injection 09:34:45 DIE TRIPPER CPT-J2930 Solu Medrol 125 mg (Methyl Prednisolone Sodium Succinate) 20:37:27 CDT CPT-18168 Abx/Therapy Injection 20:37:27 CDT CPT-11353 Port a cath flush 08:15:51 CDT CPT-78517 Port a cath flush 09:54:16 CDT CPT-36899 Port a cath flush 09:38:02 CDT CPT-76661 Port a cath flush 11:00:27 DIE TRIPPER
--- OUTSIDE RECORDS SUMMARY | 2017-12-29 04:46 | XMS REPORT | Clinical Summary ---
Author Author Admin, QIE Organization [facility] Address Unknown Phone Unavailable Allergies, Adverse Reactions, [...] MEQ CPCR 1 capsule BID POTASSIUM CHLORIDE [id number] Active Kortney Mccain Active FLUOXETINE HCL 10 MG ORAL CAPS 1 po qd for depression/anxiety FLUOXETINE HCL 92398768895 Active Harinder Hernandez DO Active VOLTAREN 1 % GEL apply q 6-8 hour to left arm as needed for pain DICLOFENAC SODIUM 92488178748 Active Harinder Hernandez DO Active LASIX 20 MG TAB 1 tablet by mouth every morning FUROSEMIDE 25921783465 Prince Mccain Active POTASSIUM CHLORIDE 20 MEQ ORAL PACK 1 tab po BID POTASSIUM CHLORIDE 61479170926 Prince Mccain Active ALBUTEROL SULFATE 0.083 % NEBU SOLN 1 vial neb q 4hrs for severe asthma. 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 FLUTICASONE PROPIONATE HFA 43398429686 Active Harinder Hernandez DO Active EPIPEN 2-BRUNA 0.3 MG/0.3ML INJ SOAJ 1 INJ NEEDED EPINEPHRINE 08032866055 Active Harinder Hernandez DO Active PREDNISONE 20 MG TAB 1 tab twice daily for 3 day, then one daily for three days PREDNISONE 84396546450 No Longer Active Harinder Hernandez DO Active PREDNISONE 20 MG TAB 1 tablet twice daily for 2 days, then 1 tablet once daily for 2 days PREDNISONE 10114195664 No Longer Active Harinder Hernandez DO Active ASMANEX 120 METERED DOSES 220 MCG/INH INH AEPB 2 puffs orally twice daily MOMETASONE FUROATE 10552621921 Active Jeri Sosa RPT,RMA Active TOPIRAMATE 25 MG TABS 1 tab po BID TOPIRAMATE 55380557412 No Longer Active Nettie Newberry APRN Active AMLODIPINE BESYLATE 5 MG ORAL TABS Take 1 tab po daily AMLODIPINE BESYLATE 11692299648 No Longer Active Nettie Newberry APRN Active MECLIZINE HCL 25 MG TAB 1 tablet three times daily for 3 days, then 1/2 tab three times daily for 3 days. MECLIZINE HCL 95062496933 No Longer Active Nettie Newberry APRN Active AMITRIPTYLINE HCL 25 MG ORAL TABS 1 q hs prn AMITRIPTYLINE HCL 71861253176 No Longer Active Nettie Newberry APRN Active DILAUDID 2 MG ORAL TABS Take 1/2 tab po every 4 hours as needed for pain 2014 HYDROMORPHONE HCL 07940854977 No Longer Active Nettie Newberry APRN Active CLOPIDOGREL BISULFATE 75 MG ORAL TABS 1 tab by mouth once daily CLOPIDOGREL BISULFATE 48085934031 Active Harinder Hernandez DO Active ATORVASTATIN CALCIUM 10 MG ORAL TABS 1 at bedtime ATORVASTATIN CALCIUM 08168642082 Active Tawnya Pardo MA Active LOVASTATIN 40 MG ORAL TABS Take 1 tab po every hs LOVASTATIN 43351727515 No Longer Active Harinder Hernandez DO Active PREDNISONE 20 MG TAB 2 tabs daily for 4 days, 1 tab daily for 4 days, 1/2 tab daily for 4 days PREDNISONE 29754613254 No Longer Active Harinder Hernandez DO Active LEVAQUIN 500 MG ORAL TABS Take 1 tab po daily x 8 days LEVOFLOXACIN 22151267731 No Longer Active Harinder Hernandez DO Active VENTOLIN HFA 108 (90 BASE) MCG/ACT AERS 2 -4 puffs four times a day PRN 2013 ALBUTEROL SULFATE 35404501044 No Longer Active Jeri Sosa RPT,RMA Active ACEBUTOLOL HCL 200 MG CAPS 1 cap in the morning and 2 caps in the evening ACEBUTOLOL HCL 27304684746 No Longer Active Harinder Hernandez DO Active CEFDINIR 300 MG ORAL CAPS take 1 cap po bid x 10 days CEFDINIR 88125620939 No Longer Active Harinder Hernandez DO Active LOVASTATIN 40 MG TABS 1 pill by mouth nightly for cholesterol LOVASTATIN 16528382253 No Longer Active Nettie Newberry APRN Active NITROSTAT 0.4 MG SUBL 1 tab under tongueas needed for chest pain ( may take 3 total, 5 min apart, then call 911) NITROGLYCERIN 64520435034 No Longer Active Nettie Newberry APRN Active POTASSIUM CHLORIDE CR 10 MEQ CPCR 1 capsule by mouth daily 02/14 POTASSIUM CHLORIDE 24678658339 No Longer Active Nettie Newberry APRN Active TESSALON PERLES 100 MG CAP 1 to 2 tablets by mouth 3 times daily as needed for cough BENZONATATE 99995922639 No Longer Active Nettie Newberry MAHENDRA Active THEOPHYLLINE ER 200 MG ORAL [id number] Take 1 tab every 12 hours THEOPHYLLINE 88409929635 Active Kortneyalice Mccain Active PREDNISONE 20 MG TAB 2 po qd x 5 days PREDNISONE 70794836719 No Longer Active Jae Moragn MD Active AZITHROMYCIN 250 MG TABS 2 po qd x 1 day, then 1 po qd x 4 days AZITHROMYCIN 77444005080 No Longer Active Jae Morgan MD Active PREDNISONE 20 MG TAB 1 tab twice daily for 3 day, then one daily for three days PREDNISONE 98940468529 No Longer Active Jae Morgan MD Active SINGULAIR 10 MG TABS 1 pill by mouth every evening for breathing. MONTELUKAST SODIUM 68440547688 Active Tawnya Pardo MA Active TYLENOL 325 MG TAB 3 by mouth q4h as needed ACETAMINOPHEN 74422982938 Active Harinder Hernandez DO Active POTASSIUM CHLORIDE ER 10 MEQ CR-TABS take 1 tab po daily POTASSIUM CHLORIDE 67263029292 No Longer Active Harinder Hernandez DO Active PREDNISONE 20 MG TAB 1 TID x 2 days, then 1 BID x 3 days, then 1 Daily x 3 days, then stop PREDNISONE 53713216755 No Longer Active Jillkvng Frashai MCCRAY Active LEVAQUIN 500 MG TAB 1 tablet by mouth daily LEVOFLOXACIN 38056421521 No Longer Active Jillina Frazell MAHENDRA Active NEURONTIN 300 MG CAP 1 cap by mouth three times daily for restless leg 06/22 GABAPENTIN 43735365261 No Longer Active Harinder Hernandez DO Active BENZONATATE 100 MG CAPS 1 cap po TID PRN BENZONATATE 78409399220 No Longer Active Harinder Hernandez DO Active MONTELUKAST SODIUM 10 MG TABS 1 tab po in the evening MONTELUKAST SODIUM 68024032420 No Longer Active Harinder Hernandez DO Active MUPIROCIN 2 % OINT apply to affected area BID x 14 days MUPIROCIN 59210975223 No Longer Active Harinder Hernandez DO Active TYLENOL EXTRA STRENGTH 500 MG TABS as needed ACETAMINOPHEN 47581695651 No Longer Active Harinder Hernandez DO Active PREDNISONE 10 MG TABS 1 tab po daily PREDNISONE 41039528838 No Longer Active Harinder Hernandez DO Active PREDNISONE 20 MG TAB 2 tabs daily for 4 days, 1 tab daily for 4 days, 1/2 tab daily for 4 days PREDNISONE 62076481272 No Longer Active Harinder Hernandez DO Active AZITHROMYCIN 250 MG TABS 2 po qd x 1 day, then 1 po qd x 4 days AZITHROMYCIN 84892622053 No Longer Active Harinder Hernandez DO Active PREDNISONE 20 MG TAB 3 tabs today, then 1 tab twice daily for 3 day, then one daily for three days PREDNISONE 58060748033 No Longer Active Harinder Hernandez DO Active NIFEDIAC CC 30 MG [id number] 1 tablet daily for raynaud's syndrome NIFEDIPINE 54328135876 No Longer Active Tawnya Pardo MA Active AMBIEN 10 MG TAB 1/2 tab by mouth at bedtime as needed for sleep ZOLPIDEM TARTRATE 34301916916 Active Ciera Pimentel Active CLONAZEPAM 1 MG TABS 1 tablet at bedtime for insomnia and restless legs 09/14 CLONAZEPAM 19992412234 Active Harinder Hernandez DO Active CLONAZEPAM 0.5 MG TABS 1 tab po daily CLONAZEPAM 77582638552 No Longer Active Harinder Hernandez DO Active PREDNISONE 10 MG TAB 1 tablet daily for COPD PREDNISONE 78799039110 Active Ciera Pimentel Active PROAIR HFA 108 (90 BASE) MCG/ACT AERS 2 puffs four times a day as needed 2012 ALBUTEROL SULFATE 36449233109 Active Harinder Hernandez DO Active FLOVENT HFA 110 MCG/ACT AERO 2 puffs inhaled b.i.d. FLUTICASONE PROPIONATE HFA 01427859721 Active Kortney Mccain Active ACIPHEX 20 MG TBEC 1 tab po daily RABEPRAZOLE SODIUM 07999684641 Active Kaylah Newberry Active CLONAZEPAM 0.5 MG TABS 1 tab po daily CLONAZEPAM 0.5 MG TABS 142600 CLONAZEPAM Inactive PREDNISONE 20 MG TAB 3 tabs today, then 1 tab twice daily for 3 day, then one daily for three days PREDNISONE 20 MG TAB 938134 PREDNISONE Inactive PREDNISONE 20 MG TAB 2 tabs daily for 4 days, 1 tab daily for 4 days, 1/2 tab daily for 4 days PREDNISONE 20 MG TAB 791061 PREDNISONE Inactive PREDNISONE 10 MG TABS 1 tab po daily PREDNISONE 10 MG TABS 012546 PREDNISONE Inactive TYLENOL EXTRA STRENGTH 500 MG TABS as needed TYLENOL EXTRA STRENGTH 500 MG TABS 826531 ACETAMINOPHEN Inactive MUPIROCIN 2 % OINT apply to affected area BID x 14 days MUPIROCIN 2 % OINT 265515 MUPIROCIN Inactive MONTELUKAST SODIUM 10 MG TABS 1 tab po in the evening MONTELUKAST SODIUM 10 MG TABS 025550 MONTELUKAST SODIUM Inactive BENZONATATE 100 MG CAPS 1 cap po TID PRN BENZONATATE 100 MG CAPS 281216 BENZONATATE Inactive NEURONTIN 300 MG CAP 1 cap by mouth three times daily for restless leg 06/22 NEURONTIN 300 MG CAP 234622 GABAPENTIN Inactive LEVAQUIN 500 MG TAB 1 tablet by mouth daily LEVAQUIN 500 MG TAB 900101 LEVOFLOXACIN Inactive PREDNISONE 20 MG TAB 1 TID x 2 days, then 1 BID x 3 days, then 1 Daily x 3 days, then stop PREDNISONE 20 MG TAB 234158 PREDNISONE Inactive POTASSIUM CHLORIDE ER 10 MEQ CR-TABS take 1 tab po daily POTASSIUM CHLORIDE ER 10 MEQ CR-TABS POTASSIUM CHLORIDE Inactive PREDNISONE 20 MG TAB 1 tab twice daily for 3 day, then one daily for three days PREDNISONE 20 MG TAB 960413 PREDNISONE Inactive TESSALON PERLES 100 MG CAP 1 to 2 tablets by mouth 3 times daily as needed for cough TESSALON PERLES 100 MG CAP 245972 BENZONATATE Inactive POTASSIUM CHLORIDE CR 10 MEQ CPCR 1 capsule by mouth daily 02/14 POTASSIUM CHLORIDE CR 10 MEQ CPCR POTASSIUM CHLORIDE Inactive NITROSTAT 0.4 MG SUBL 1 tab under tongueas needed for chest pain ( may take 3 total, 5 min apart, then call 911) NITROSTAT 0.4 MG SUBL 772961 NITROGLYCERIN Inactive LOVASTATIN 40 MG TABS 1 pill by mouth nightly for cholesterol LOVASTATIN 40 MG TABS LOVASTATIN Inactive CEFDINIR 300 MG ORAL CAPS take 1 cap po bid x 10 days CEFDINIR 300 MG ORAL CAPS 008919 CEFDINIR Inactive ACEBUTOLOL HCL 200 MG CAPS 1 cap in the morning and 2 caps in the evening ACEBUTOLOL HCL 200 MG CAPS 179335 ACEBUTOLOL HCL Inactive VENTOLIN HFA 108 (90 BASE) MCG/ACT AERS 2 -4 puffs four times a day PRN 2013 VENTOLIN HFA 108 (90 BASE) MCG/ACT AERS ALBUTEROL SULFATE Inactive LEVAQUIN 500 MG ORAL TABS Take 1 tab po daily x 8 days LEVAQUIN 500 MG ORAL TABS 201119 LEVOFLOXACIN Inactive PREDNISONE 20 MG TAB 2 tabs daily for 4 days, 1 tab daily for 4 days, 1/2 tab daily for 4 days PREDNISONE 20 MG TAB 985263 PREDNISONE Inactive LOVASTATIN 40 MG ORAL TABS Take 1 tab po every hs LOVASTATIN 40 MG ORAL TABS LOVASTATIN Inactive DILAUDID 2 MG ORAL TABS Take 1/2 tab po every 4 hours as needed for pain 2014 DILAUDID 2 MG ORAL TABS 162157 HYDROMORPHONE HCL Inactive AMITRIPTYLINE HCL 25 MG ORAL TABS 1 q hs prn AMITRIPTYLINE HCL 25 MG ORAL TABS 820287 AMITRIPTYLINE HCL Inactive MECLIZINE HCL 25 MG TAB 1 tablet three times daily for 3 days, then 1/2 tab three times daily for 3 days. MECLIZINE HCL 25 MG TAB 453308 MECLIZINE HCL Inactive AMLODIPINE BESYLATE 5 MG ORAL TABS Take 1 tab po daily AMLODIPINE BESYLATE 5 MG ORAL TABS 669713 AMLODIPINE BESYLATE Inactive TOPIRAMATE 25 MG TABS 1 tab po BID TOPIRAMATE 25 MG TABS 509720 TOPIRAMATE Inactive PREDNISONE 20 MG TAB 1 tablet twice daily for 2 days, then 1 tablet once daily for 2 days PREDNISONE 20 MG TAB 903248 PREDNISONE Inactive PREDNISONE 20 MG TAB 1 tab twice daily for 3 day, then one daily for three days PREDNISONE 20 MG TAB 375364 PREDNISONE Inactive NIFEDIPINE ER 30 MG ORAL [id number] 1 daily NIFEDIPINE ER 30 MG ORAL [id number] NIFEDIPINE Inactive AMLODIPINE BESYLATE 5 MG TABS 1 tablet by mouth daily AMLODIPINE BESYLATE 5 MG TABS 834521 AMLODIPINE BESYLATE Inactive AZITHROMYCIN 250 MG TABS 2 po qd x 1 day, then 1 po qd x 4 days AZITHROMYCIN 250 MG TABS 5003024 AZITHROMYCIN Inactive AZITHROMYCIN 250 MG TABS 2 po qd x 1 day, then 1 po qd x 4 days AZITHROMYCIN 250 MG TABS 3078721 AZITHROMYCIN Inactive PREDNISONE 20 MG TAB 2 po qd x 5 days PREDNISONE 20 MG TAB 475477 PREDNISONE Inactive Vital Signs Date Name Value [...] Panel - Chemistry sodium, serum 137 mmol/L 071-956 0107/01/03 potassium, serum 3.4 mmol/L 3.5-5.2 chloride, serum 102 mmol/L 98-107 carbon dioxide, venous blood 29.2 mmol/L 21.0-32.0 blood glucose 87 mg/dL 65-110 calcium, serum 8.5 mg/dL 8.5-10.1 urea nitrogen, blood 8 mg/dL 7-18 creatinine, serum 0.82 mg/dL 0.55-1.30 sodium, serum 140 mmol/L 980-078 7293/07/13 potassium, serum 3.2 mmol/L 3.5-5.2 chloride, serum [...] 0.40 mg/dL 0.00-1.00 sodium, serum 142 mmol/L 481-322 7610/08/08 LDL cholesterol, serum 96 mg/dL 0-130 HDL cholesterol, serum 66 mg/dL 32-96 triglyceride, serum, fasting 92 mg/dL 30-200 cholesterol, serum 180 mg/dL 808-460 3343/08/08 urea nitrogen, blood 9 mg/dL 7-18 blood [...] 10.0-20.0 Encounters Code Encounter Date Provider Facility CPT-22401 Level 4 Est. Patient 09:15:13 CDT Harinder Hernandez [facility] CPT-93613 Level 3 Est. Patient 11:51:58 CDT Harinder Hernandez [facility] CPT-20037 Level 3 Est. Patient 11:30:05 CDT Harinder Hernandez [facility] CPT-77033 Level 4 Est. Patient 10:19:23 CDT Harinder Hernandez [facility] CPT-89380 Level 3 Est. Patient 09:58:58 CDT Harinder Cr [facility] CPT-90487 Level 3 Est. Patient 12:37:21 CDT Harinder Hernandez [facility] CPT-89464 Level 3 Est. Patient 18:37:17 CDT Harinder Hernandez [facility] CPT-60748 Level 4 Est. Patient 11:15:54 CDT Nettie Newberry [facility] CPT-79504 Level 3 Est. Patient 16:42:24 CDT Harinder Hernandez [facility] CPT-55768 Level 3 Est. Patient 15:03:36 CDT Harinder Hernandez [facility] CPT-14916 Level 3 Est. Patient 15:03:20 CDT Harinder Hernandez [facility] CPT-81328 Level 3 Est. Patient 12:14:34 CDT Harinder Hernandez [facility] CPT-19883 Level 3 Est. Patient 13:47:15 CDT Harinder Hernandez [facility] CPT-74157 Level 3 Est. Patient 14:08:24 CDT Harinder Hernandez [facility] CPT-50781 Level 3 Est. Patient 10:07:15 CDT Harinder Hernandez [facility] CPT-30696 Level 3 Est. Patient 10:06:59 CDT Harinder Hernandez [facility] CPT-32448 Level 3 Est. Patient 15:53:29 CDT Jae Morgan MD [facility] CPT-01479 Level 3 Est. Patient 17:19:04 CDT Harinder Hernandez [facility] CPT-75762 Level 3 Est. Patient 11:13:01 CDT Harinder Hernandez [facility] CPT-95275 Level 3 Est. Patient 09:03:58 CDT Harinder Hernandez [facility] CPT-70392 Level 3 Est. Patient 14:46:45 BILLING MANAGER Harinder Hernandez [facility] CPT-31608 Level 3 Est. Patient 09:35:49 BILLING MANAGER Harinder Hernandez [facility] CPT-20056 Level 3 Est. Patient 09:29:37 BILLING MANAGER Harinder Hernandez [facility] CPT-03361 Level 3 Est. Patient 15:51:07 CDT Harinder Hernandez [facility] CPT-79691 Level 3 Est. Patient 18:13:13 CDT Harinder Hernandez [facility] CPT-74892 Level 3 Est. Patient 10:44:19 CDT Harinder Hernandez [facility] CPT-55523 Level 4 Est. Patient 10:07:19 BILLING MANAGER Harinder Hernandez [facility] CPT-73043 Level 3 Est. Patient 15:59:32 BILLING MANAGER Harinder Cr [facility] Procedures Code Procedure Name Date Entry Date Standard Description CPT-47496 Port a cath flush 13:46:05 CDT CPT-97467 Hip, complete, 2-3 views - XRAY USE ONLY 10:28:40 CDT CPT-45983 BMP - LAB USE ONLY 16:45:09 BILLING MANAGER CPT-74192 Port a cath flush 12:00:13 BILLING MANAGER CPT-TCMM Transitional Care Mgmt-Moderate 11:20:16 BILLING MANAGER CPT-34273 First Vx - Ix admin for Medicare patients 17:35:15 CDT CPT-70208 Fluzone Preservative Free Intramuscular Suspension 17:35 :15 CDT CPT-50269 Microalbumin - LAB USE ONLY 11:52:05 CDT CPT-TCMM Transitional Care Mgmt-Moderate 11:33:57 CDT CPT-40383 No Charge Offi Visit 14:11:29 CDT CPT-71335 Magnesium - LAB USE ONLY 10:45:44 CDT CPT-21478 Lipid - LAB USE ONLY 10:45:44 CDT CPT-89048 CBC - LAB USE ONLY 10:45:44 CDT CPT-43958 Venipuncture Draw Fee 10:45:43 CDT CPT-27431 Venipuncture Draw Fee 18:21:27 CDT CPT-JTINJ Asp/Joint Injection 18:38:04 CDT CPT-63413 Immunization Each Additional Inj 17:38:04 CDT CPT-33432 Immunization Single Admin 17:38:04 CDT CPT-64005 Prevnar 13 17:38:04 CDT CPT-94991 Fluzone Quadrivalent preservative free (>=3yrs.) 17:38: 04 CDT CPT-71424 No Charge Offi Visit 11:14:03 CDT CPT-22215 Chest 2V Frontal and Lat 14:00:18 CDT CPT-OV Office Visit 16:10:28 CDT CPT-JTINJ Asp/Joint Injection 09:03:57 CDT CPT-Cryo Cryotherapy 09:35:49 BILLING MANAGER CPT-JTINJ Asp/Joint Injection 09:34:45 BILLING MANAGER CPT-J2930 Solu Medrol 125 mg (Methyl Prednisolone Sodium Succinate) 20:37:27 CDT CPT-21036 Abx/Therapy Injection 20:37:27 CDT CPT-27522 Port a cath flush 08:15:51 CDT CPT-81534 Port a cath flush 09:54:16 CDT CPT-01109 Port a cath flush 09:38:02 CDT CPT-53366 Port a cath flush 11:00:27 BILLING MANAGER
--- OUTSIDE RECORDS SUMMARY | 2017-12-29 04:48 | XMS REPORT | Clinical Summary ---
Author Author Admin, QIE Organization [facility] Address Unknown Phone Unavailable Allergies, Adverse [...] then one daily for three days PREDNISONE [id number] No Longer Active Harinder Hernandez DO Active PREDNISONE 20 MG TAB 1 tablet twice daily for 2 days, then 1 tablet once daily for 2 days PREDNISONE 33428759862 No Longer Active Harinder Hernandez DO Active ASMANEX 120 METERED DOSES 220 MCG/INH INH AEPB 2 puffs orally twice daily MOMETASONE FUROATE 60975128535 Active Jeri Sosa RPT,RMA Active NIFEDIPINE ER 30 MG ORAL [id number]-SUH 1 daily NIFEDIPINE 22792919544 Active Tawnya Pardo MA Active TOPIRAMATE 25 MG TABS 1 tab po BID TOPIRAMATE 53410089327 No Longer Active Nettie Newberry APRN Active AMLODIPINE BESYLATE 5 MG ORAL TABS Take 1 tab po daily AMLODIPINE BESYLATE 87258435774 No Longer Active Nettie Newberry APRN Active MECLIZINE HCL 25 MG TAB 1 tablet three times daily for 3 days, then 1/2 tab three times daily for 3 days. MECLIZINE HCL 78707778705 No Longer Active Nettie Newberry APRN Active AMITRIPTYLINE HCL 25 MG ORAL TABS 1 q hs prn AMITRIPTYLINE HCL 38110901009 No Longer Active Nettie Newberry APRN Active DILAUDID 2 MG ORAL TABS Take 1/2 tab po every 4 hours as needed for pain 2014 HYDROMORPHONE HCL 44375875076 No Longer Active Nettie Newberry APRN Active CLOPIDOGREL BISULFATE 75 MG ORAL TABS 1 tab by mouth once daily CLOPIDOGREL BISULFATE 62181113296 Active Jeri Sosa RPT,RMA Active ATORVASTATIN CALCIUM 10 MG ORAL TABS 1 at bedtime ATORVASTATIN CALCIUM 36272317940 Active Jeri Sosa RPT,RMA Active LOVASTATIN 40 MG ORAL TABS Take 1 tab po every hs LOVASTATIN 48415857830 No Longer Active Harinder Hernandez DO Active PREDNISONE 20 MG TAB 2 tabs daily for 4 days, 1 tab daily for 4 days, 1/2 tab daily for 4 days PREDNISONE 06707168107 No Longer Active Harinder Hernandez DO Active LEVAQUIN 500 MG ORAL TABS Take 1 tab po daily x 8 days LEVOFLOXACIN 90989955904 No Longer Active Harinder Hernandez DO Active VENTOLIN HFA 108 (90 BASE) MCG/ACT AERS 2 -4 puffs four times a day PRN 2013 ALBUTEROL SULFATE 36988063221 No Longer Active Jeri Sosa RPT,RMA Active ACEBUTOLOL HCL 200 MG CAPS 1 cap in the morning and 2 caps in the evening ACEBUTOLOL HCL 34141898373 No Longer Active Harinder Hernandez DO Active CEFDINIR 300 MG ORAL CAPS take 1 cap po bid x 10 days CEFDINIR 65254138255 No Longer Active Harinder Hernandez DO Active LOVASTATIN 40 MG TABS 1 pill by mouth nightly for cholesterol LOVASTATIN 73903514355 No Longer Active Nettie Newberry APRN Active NITROSTAT 0.4 MG SUBL 1 tab under tongueas needed for chest pain ( may take 3 total, 5 min apart, then call 911) NITROGLYCERIN 03827010578 No Longer Active Nettie Newberry APRN Active POTASSIUM CHLORIDE CR 10 MEQ CPCR 1 capsule by mouth daily 02/14 POTASSIUM CHLORIDE 84152816435 No Longer Active Nettie Newberry APRN Active TESSALON PERLES 100 MG CAP 1 to 2 tablets by mouth 3 times daily as needed for cough BENZONATATE 76096889345 No Longer Active Nettie Newberry APRN Active THEOPHYLLINE ER 200 MG ORAL [id number] Take 1 tab every 12 hours THEOPHYLLINE 86305435258 Active Jeri Sosa RPT,RMA Active PREDNISONE 20 MG TAB 2 po qd x 5 days PREDNISONE 98228353360 No Longer Active Jae Morgan MD Active AZITHROMYCIN 250 MG TABS 2 po qd x 1 day, then 1 po qd x 4 days AZITHROMYCIN 59456624654 No Longer Active Jae Morgan MD Active PREDNISONE 20 MG TAB 1 tab twice daily for 3 day, then one daily for three days PREDNISONE 29085765014 No Longer Active Jae Morgan MD Active SINGULAIR 10 MG TABS 1 pill by mouth every evening for breathing. MONTELUKAST SODIUM 25010830225 Active Tawnya Pardo MA Active TYLENOL 325 MG TAB 3 by mouth q4h as needed ACETAMINOPHEN 05166852369 Active Harinder Hernandez DO Active POTASSIUM CHLORIDE ER 10 MEQ CR-TABS take 1 tab po daily POTASSIUM CHLORIDE 63691586744 No Longer Active Harinder Hernandez DO Active PREDNISONE 20 MG TAB 1 TID x 2 days, then 1 BID x 3 days, then 1 Daily x 3 days, then stop PREDNISONE 06485002570 No Longer Active Jillina Frazell ANIMAL CRUELTY INVESTIGATOR Active LEVAQUIN 500 MG TAB 1 tablet by mouth daily LEVOFLOXACIN 47560418214 No Longer Active Jillina Frazell ANIMAL CRUELTY INVESTIGATOR Active NEURONTIN 300 MG CAP 1 cap by mouth three times daily for restless leg 06/22 GABAPENTIN 33848939199 No Longer Active Harinder Hernandez DO Active BENZONATATE 100 MG CAPS 1 cap po TID PRN BENZONATATE 14131499540 No Longer Active Harinder Hernandez DO Active MONTELUKAST SODIUM 10 MG TABS 1 tab po in the evening MONTELUKAST SODIUM 07279954644 No Longer Active Harinder Hernandez DO Active MUPIROCIN 2 % OINT apply to affected area BID x 14 days MUPIROCIN 10933268092 No Longer Active Harinder Hernandez DO Active TYLENOL EXTRA STRENGTH 500 MG TABS as needed ACETAMINOPHEN 15551430016 No Longer Active Harinder Hernandez DO Active PREDNISONE 10 MG TABS 1 tab po daily PREDNISONE 09904906103 No Longer Active Harinder Hernandez DO Active PREDNISONE 20 MG TAB 2 tabs daily for 4 days, 1 tab daily for 4 days, 1/2 tab daily for 4 days PREDNISONE 83116760167 No Longer Active Harinder Hernandez DO Active AZITHROMYCIN 250 MG TABS 2 po qd x 1 day, then 1 po qd x 4 days AZITHROMYCIN 51685279142 No Longer Active Harinder Hernandez DO Active PREDNISONE 20 MG TAB 3 tabs today, then 1 tab twice daily for 3 day, then one daily for three days PREDNISONE 84890974800 No Longer Active Harinder Hernandez DO Active NIFEDIAC CC 30 MG [id number] 1 tablet daily for raynaud's syndrome NIFEDIPINE 49603548910 No Longer Active Tawnya Pardo MA Active AMBIEN 10 MG TAB 1/2 tab by mouth at bedtime as needed for sleep ZOLPIDEM TARTRATE 66513134118 Active Harinder Hernandez DO Active CLONAZEPAM 1 MG TABS 1 tablet at bedtime for insomnia and restless legs 09/14 CLONAZEPAM 29528471194 Active Jeri Sosa RPT,RMA Active CLONAZEPAM 0.5 MG TABS 1 tab po daily CLONAZEPAM 68761023677 No Longer Active Harinder Hernandez DO Active PREDNISONE 10 MG TAB 1 tablet daily for COPD PREDNISONE 30851406874 Active Tawnya Parod MA Active PROAIR HFA 108 (90 BASE) MCG/ACT AERS 2 puffs four times a day as needed 2012 ALBUTEROL SULFATE 28310544863 Active Tawnya Pardo MA Active FLOVENT HFA 110 MCG/ACT AERO 2 puffs inhaled b.i.d. FLUTICASONE PROPIONATE HFA 06734124914 Active Tawnya Pardo MA Active EPIPEN 0.3 MG/0.3ML URIEL DIRECTED EPINEPHRINE Active Jeri Sosa RPT,RMA Active ACIPHEX 20 MG TBEC 1 tab po daily RABEPRAZOLE SODIUM 37429538554 Active Tawnya Pardo MA Active CLONAZEPAM 0.5 MG TABS 1 tab po daily CLONAZEPAM 0.5 MG TABS 150451 CLONAZEPAM Inactive PREDNISONE 20 MG TAB 3 tabs today, then 1 tab twice daily for 3 day, then one daily for three days PREDNISONE 20 MG TAB 518792 PREDNISONE Inactive PREDNISONE 20 MG TAB 2 tabs daily for 4 days, 1 tab daily for 4 days, 1/2 tab daily for 4 days PREDNISONE 20 MG TAB 651272 PREDNISONE Inactive PREDNISONE 10 MG TABS 1 tab po daily PREDNISONE 10 MG TABS 902108 PREDNISONE Inactive TYLENOL EXTRA STRENGTH 500 MG TABS as needed TYLENOL EXTRA STRENGTH 500 MG TABS 316778 ACETAMINOPHEN Inactive MUPIROCIN 2 % OINT apply to affected area BID x 14 days MUPIROCIN 2 % OINT 827317 MUPIROCIN Inactive MONTELUKAST SODIUM 10 MG TABS 1 tab po in the evening MONTELUKAST SODIUM 10 MG TABS 153942 MONTELUKAST SODIUM Inactive BENZONATATE 100 MG CAPS 1 cap po TID PRN BENZONATATE 100 MG CAPS 476686 BENZONATATE Inactive NEURONTIN 300 MG CAP 1 cap by mouth three times daily for restless leg 06/22 NEURONTIN 300 MG CAP 753407 GABAPENTIN Inactive LEVAQUIN 500 MG TAB 1 tablet by mouth daily LEVAQUIN 500 MG TAB 105739 LEVOFLOXACIN Inactive PREDNISONE 20 MG TAB 1 TID x 2 days, then 1 BID x 3 days, then 1 Daily x 3 days, then stop PREDNISONE 20 MG TAB 245126 PREDNISONE Inactive POTASSIUM CHLORIDE ER 10 MEQ CR-TABS take 1 tab po daily POTASSIUM CHLORIDE ER 10 MEQ CR-TABS POTASSIUM CHLORIDE Inactive PREDNISONE 20 MG TAB 1 tab twice daily for 3 day, then one daily for three days PREDNISONE 20 MG TAB 456773 PREDNISONE Inactive TESSALON PERLES 100 MG CAP 1 to 2 tablets by mouth 3 times daily as needed for cough TESSALON PERLES 100 MG CAP 919776 BENZONATATE Inactive POTASSIUM CHLORIDE CR 10 MEQ [...] nightly for cholesterol LOVASTATIN 40 MG TABS 438321 LOVASTATIN Inactive CEFDINIR 300 MG ORAL CAPS take 1 cap po bid x 10 days CEFDINIR 300 MG ORAL CAPS 382629 CEFDINIR Inactive ACEBUTOLOL HCL 200 MG CAPS 1 cap in the morning and 2 caps in the evening ACEBUTOLOL HCL 200 MG CAPS 006666 ACEBUTOLOL HCL Inactive VENTOLIN HFA 108 (90 BASE) MCG/ACT AERS 2 -4 puffs four times a day PRN 2013 VENTOLIN HFA 108 (90 BASE) MCG/ACT AERS ALBUTEROL SULFATE Inactive LEVAQUIN 500 MG ORAL TABS Take 1 tab po daily x 8 days LEVAQUIN 500 MG ORAL TABS 024341 LEVOFLOXACIN Inactive PREDNISONE 20 MG TAB 2 tabs daily for 4 days, 1 tab daily for 4 days, 1/2 tab daily for 4 days PREDNISONE 20 MG TAB 262447 PREDNISONE Inactive LOVASTATIN 40 MG ORAL TABS Take 1 tab po every hs LOVASTATIN 40 MG ORAL TABS 660190 LOVASTATIN Inactive DILAUDID 2 MG ORAL TABS Take 1/2 tab po every 4 hours as needed for pain 2014 DILAUDID 2 MG ORAL TABS 767558 HYDROMORPHONE HCL Inactive AMITRIPTYLINE HCL 25 MG ORAL TABS 1 q hs prn AMITRIPTYLINE HCL 25 MG ORAL TABS 439961 AMITRIPTYLINE HCL Inactive MECLIZINE HCL 25 MG TAB 1 tablet three times daily for 3 days, then 1/2 tab three times daily for 3 days. MECLIZINE HCL 25 MG TAB 402971 MECLIZINE HCL Inactive AMLODIPINE BESYLATE 5 MG ORAL TABS Take 1 tab po daily AMLODIPINE BESYLATE 5 MG ORAL TABS 931358 AMLODIPINE BESYLATE Inactive TOPIRAMATE 25 MG TABS 1 tab po BID TOPIRAMATE 25 MG TABS 722706 TOPIRAMATE Inactive PREDNISONE 20 MG TAB 1 tablet twice daily for 2 days, then 1 tablet once daily for 2 days PREDNISONE 20 MG TAB 909979 PREDNISONE Inactive PREDNISONE 20 MG TAB 1 tab twice daily for 3 day, then one daily for three days PREDNISONE 20 MG TAB 013359 PREDNISONE Inactive AZITHROMYCIN 250 MG TABS 2 po qd x 1 day, then 1 po qd x 4 days AZITHROMYCIN 250 MG TABS 2830879 AZITHROMYCIN Inactive AZITHROMYCIN 250 MG TABS 2 po qd x 1 day, then 1 po qd x 4 days AZITHROMYCIN 250 MG TABS 8818216 AZITHROMYCIN Inactive PREDNISONE 20 MG TAB 2 po qd x 5 days PREDNISONE 20 MG TAB 580110 PREDNISONE Inactive Vital Signs Date Name Value [...] Panel - Chemistry sodium, serum 138 mmol/L 075-741 6841/09/24 potassium, serum 3.5 mmol/L 3.5-5.2 chloride, serum [...] Magnesium - Chemistry cholesterol, serum 180 mg/dL 197-397 0851/08/08 triglyceride, serum, fasting 92 mg/dL 30-200 HDL cholesterol, serum 66 mg/dL 32-96 LDL cholesterol, serum 96 mg/dL 0-130 sodium, serum 142 mmol/L 152-319 0299/08/08 carbon dioxide, venous blood 27.4 mmol/L 21.0-32.0 [...] 10.0-20.0 Encounters Code Encounter Date Provider Facility CPT-02990 Level 3 Est. Patient 09:58:58 CDT Harinder Cr [facility] CPT-76216 Level 3 Est. Patient 12:37:21 CDT Harinder Shaye [facility] CPT-63536 Level 3 Est. Patient 18:37:17 CDT Harinder Shaye [facility] CPT-95409 Level 4 Est. Patient 11:15:54 CDT Nettie Newberry [facility] CPT-84491 Level 3 Est. Patient 16:42:24 CDT Harinder Cr [facility] CPT-09453 Level 3 Est. Patient 15:03:36 CDT Harinder Cr [facility] CPT-37030 Level 3 Est. Patient 15:03:20 CDT Harinder Cr [facility] CPT-43838 Level 3 Est. Patient 12:14:34 CDT Harinder Shaye [facility] CPT-18757 Level 3 Est. Patient 13:47:15 CDT Harinder Shaye [facility] CPT-83449 Level 3 Est. Patient 14:08:24 CDT Harinder Shaye [facility] CPT-93850 Level 3 Est. Patient 10:07:15 CDT Harinder Shaye [facility] CPT-33232 Level 3 Est. Patient 10:06:59 CDT Harinder Cr [facility] CPT-25419 Level 3 Est. Patient 15:53:29 CDT Jae Morgan MD [facility] CPT-61933 Level 3 Est. Patient 17:19:04 CDT Harinder Hernandez [facility] CPT-50328 Level 3 Est. Patient 11:13:01 CDT Harinder Hernandez [facility] CPT-70633 Level 3 Est. Patient 09:03:58 CDT Harinder Hernandez [facility] CPT-68143 Level 3 Est. Patient 14:46:45 CORNER FORMER Harinder Hernandez [facility] CPT-22385 Level 3 Est. Patient 09:35:49 CORNER FORMER Harinder Shaye David [facility] CPT-81485 Level 3 Est. Patient 09:29:37 CORNER FORMER Harinder Hernandez [facility] CPT-49707 Level 3 Est. Patient 15:51:07 CDT Harinder Hernandez [facility] CPT-03848 Level 3 Est. Patient 18:13:13 CDT Harinder Cr [facility] CPT-66998 Level 3 Est. Patient 10:44:19 CDT Harinder Hernandez [facility] CPT-64283 Level 4 Est. Patient 10:07:19 CORNER FORMER Harinder Cr [facility] CPT-40952 Level 3 Est. Patient 15:59:32 CORNER FORMER aHrinder Cr [facility] Procedures Code Procedure Name Date Entry Date Standard Description CPT-TCMM Transitional Care Mgmt-Moderate 11:33:57 CDT CPT-35611 No Charge Offi Visit 14:11:29 CDT CPT-80909 Magnesium - LAB USE ONLY 10:45:44 CDT CPT-72794 Lipid - LAB USE ONLY 10:45:44 CDT CPT-12797 CBC - LAB USE ONLY 10:45:44 CDT CPT-09629 Venipuncture Draw Fee 10:45:43 CDT CPT-71654 Venipuncture Draw Fee 18:21:27 CDT CPT-JTINJ Asp/Joint Injection 18:38:04 CDT CPT-66834 Immunization Each Additional Inj 17:38:04 CDT CPT-29853 Immunization Single Admin 17:38:04 CDT CPT-13167 Prevnar 13 17:38:04 CDT CPT-03639 Fluzone Quadrivalent preservative free (>=3yrs.) 17:38: 04 CDT CPT-64397 No Charge Offi Visit 11:14:03 CDT CPT-63244 Chest 2V Frontal and Lat 14:00:18 CDT CPT-OV Office Visit 16:10:28 CDT CPT-JTINJ Asp/Joint Injection 09:03:57 CDT CPT-Cryo Cryotherapy 09:35:49 CORNER FORMER CPT-JTINJ Asp/Joint Injection 09:34:45 CORNER FORMER CPT-J2930 Solu Medrol 125 mg (Methyl Prednisolone Sodium Succinate) 20:37:27 CDT CPT-81575 Abx/Therapy Injection 20:37:27 CDT CPT-62369 Port a cath flush 08:15:51 CDT CPT-95591 Port a cath flush 09:54:16 CDT CPT-82934 Port a cath flush 09:38:02 CDT CPT-37595 Port a cath flush 11:00:27 CORNER FORMER
--- OUTSIDE RECORDS SUMMARY | 2017-12-29 04:50 | XMS REPORT | Clinical Summary ---
Author Author Admin, QIE Organization [facility] [employer] Address Unknown Phone Unavailable Allergies, Adverse Reactions, [...] 1 capsule twice daily 10 days CEFDINIR 57504455404 Active Harinder Hernandez DO Active SUPER CALCIUM 600 + D3 TABLET CALCIUM CARBONATE-VITAMIN D TABS 42600832409 Active Meenu Alejo LPN Active SPIRONOLACTONE 25 MG ORAL TABLET 1 tablet by mouth daily SPIRONOLACTONE 39667477013 No Longer Active Jeri Nieto Active PREDNISONE 20 MG ORAL TABLET 2 tablets by mouth today, then 1 tablet by mouth days 2-3 PREDNISONE 63028661676 No Longer Active Jeri Nieto Active NITROSTAT 0.4 MG SUBLINGUAL TABLET SUBLINGUAL 1 tab SL q5min PRN chest pain NITROGLYCERIN 49250040963 Active Meenu Alejo LPN Active THEOPHYLLINE ER 300 MG ORAL TABLET EXTENDED RELEASE 12 HOUR 1 po BID THEOPHYLLINE 04650517287 Active Meenu Alejo LPN Active POTASSIUM CHLORIDE ER 20 MEQ ORAL TABLET EXTENDED RELEASE 1 po q day POTASSIUM CHLORIDE 04297274734 Active Kortney Mccain Active POTASSIUM CHLORIDE 20 MEQ ORAL PACKET 1 tab po q day POTASSIUM CHLORIDE 33544679263 No Longer Active Kortney Mccain Active POTASSIUM CHLORIDE ER 10 MEQ ORAL CAPSULE EXTENDED RELEASE 1 capsule BID 2016 POTASSIUM CHLORIDE 52455665006 No Longer Active Kortney Mccain Active LASIX 20 MG ORAL TABLET 1 tablet by mouth every morning FUROSEMIDE 27893300608 No Longer Active Kortney Mccain Active FLUOXETINE HCL 10 MG ORAL CAPSULE 1 po qd for depression/anxiety FLUOXETINE HCL 50346862258 Active Meenu Alejo LPN Active VOLTAREN 1 % TRANSDERMAL GEL apply q 6-8 hour to left arm as needed for pain DICLOFENAC SODIUM 78924604620 Active Kortney Mccain Active ALBUTEROL SULFATE (2.5 MG/3ML) 0.083% INHALATION NEBULIZATION SOLUTION 1 vial neb q 4hrs for severe asthma. 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 NIFEDIPINE 92089052969 Active Kortney Mccain Active AMLODIPINE BESYLATE 5 MG ORAL TABLET 1 tablet by mouth daily 2016 AMLODIPINE BESYLATE 43318854648 No Longer Active Harinder Hernandez DO Active TOPAMAX 25 MG ORAL TABLET 1 tab po BID TOPIRAMATE 04288563338 Active Kortney Mccain Active FLUTICASONE PROPIONATE 50 MCG/ACT NASAL SUSPENSION 2 sprays per nostril daily PRN Allergies FLUTICASONE PROPIONATE 38180974027 Active Meenu Alejo LPN Active NIFEDIPINE ER 30 MG ORAL TABLET EXTENDED RELEASE 24 HOUR 1 daily NIFEDIPINE 53066119783 No Longer Active Harinder Hernandez DO Active FLOVENT HFA 110 MCG/ACT INHALATION AEROSOL 2 puffs inhaled b.i.d. FLUTICASONE PROPIONATE HFA 06415452661 Active Harinder Hernandez DO Active EPIPEN 2-BRUNA 0.3 MG/0.3ML INJECTION SOLUTION AUTO-INJECTOR 1 INJ NEEDED EPINEPHRINE 57022092710 Active Meenu Alejo LPN Active PREDNISONE 20 MG ORAL TABLET 1 tab twice daily for 3 day, then one daily for three days PREDNISONE 88060983105 No Longer Active Harinder Hernandez DO Active PREDNISONE 20 MG ORAL TABLET 1 tablet twice daily for 2 days, then 1 tablet once daily for 2 days PREDNISONE 75357516357 No Longer Active Harinder Hernandez DO Active ASMANEX 120 METERED DOSES 220 MCG/INH INHALATION AEROSOL POWDER BREATH ACTIVATED 2 puffs orally twice daily MOMETASONE FUROATE 86900428774 Active Jeri Sosa LPN Active TOPIRAMATE 25 MG ORAL TABLET 1 tab po BID TOPIRAMATE 35922729617 No Longer Active Nettie Newberry APRN Active AMLODIPINE BESYLATE 5 MG ORAL TABLET Take 1 tab po daily AMLODIPINE BESYLATE 76914593838 No Longer Active Nettie Newberry APRN Active MECLIZINE HCL 25 MG ORAL TABLET 1 tablet three times daily for 3 days, then 1/ 2 tab three times daily for 3 days. MECLIZINE HCL 47639495725 No Longer Active Nettie Newberry APRN Active AMITRIPTYLINE HCL 25 MG ORAL TABLET 1 q hs prn AMITRIPTYLINE HCL 97454010235 No Longer Active Nettie Newberry APRN Active DILAUDID 2 MG ORAL TABLET Take 1/2 tab po every 4 hours as needed for pain HYDROMORPHONE HCL 86544947780 No Longer Active Nettie Newberry APRN Active CLOPIDOGREL BISULFATE 75 MG ORAL TABLET 1 tab by mouth once daily CLOPIDOGREL BISULFATE 52731681910 Active Meenu Alejo LPN Active ATORVASTATIN CALCIUM 10 MG ORAL TABLET 1 at bedtime ATORVASTATIN CALCIUM 54069611768 Active Kortney Mccain Active LOVASTATIN 40 MG ORAL TABLET Take 1 tab po every hs LOVASTATIN 36716841287 No Longer Active Harinder Hernandez DO Active PREDNISONE 20 MG ORAL TABLET 2 tabs daily for 4 days, 1 tab daily for 4 days, 1/2 tab daily for 4 days PREDNISONE 40250345806 No Longer Active Harinder Hernandez DO Active LEVAQUIN 500 MG ORAL TABLET Take 1 tab po daily x 8 days LEVOFLOXACIN 20646709041 No Longer Active Harinder Hernandez DO Active VENTOLIN HFA 108 (90 Base) MCG/ACT INHALATION AEROSOL SOLUTION 2 -4 puffs four times a day PRN ALBUTEROL SULFATE 80130307852 No Longer Active Jeri Sosa LPN Active ACEBUTOLOL HCL 200 MG ORAL CAPSULE 1 cap in the morning and 2 caps in the evening ACEBUTOLOL HCL 13587754307 No Longer Active Harinder Hernandez DO Active CEFDINIR 300 MG ORAL CAPSULE take 1 cap po bid x 10 days CEFDINIR 02468594534 No Longer Active Harinder Hernandez DO Active LOVASTATIN 40 MG ORAL TABLET 1 pill by mouth nightly for cholesterol LOVASTATIN 84607351825 No Longer Active Nettie Newberry APRN Active NITROSTAT 0.4 MG SUBLINGUAL TABLET SUBLINGUAL 1 tab under tongueas needed for chest pain ( may take 3 total, 5 min apart, then call 911) NITROGLYCERIN 40266621077 No Longer Active Nettie Newberry APRN Active POTASSIUM CHLORIDE ER 10 MEQ ORAL CAPSULE EXTENDED RELEASE 1 capsule by mouth daily POTASSIUM CHLORIDE 83554972521 No Longer Active Nettie Newberry APRN Active TESSALON PERLES 100 MG ORAL CAPSULE 1 to 2 tablets by mouth 3 times daily as needed for cough BENZONATATE 96019367934 No Longer Active Nettie Newberry APRN Active PREDNISONE 20 MG ORAL TABLET 2 po qd x 5 days PREDNISONE 48819908189 No Longer Active Jae Morgan MD Active AZITHROMYCIN 250 MG ORAL TABLET 2 po qd x 1 day, then 1 po qd x 4 days 12/30 AZITHROMYCIN 11778889589 No Longer Active Jae Morgan MD Active PREDNISONE 20 MG ORAL TABLET 1 tab twice daily for 3 day, then one daily for three days PREDNISONE 29963543822 No Longer Active Jae Morgan MD Active SINGULAIR 10 MG ORAL TABLET 1 pill by mouth every evening for breathing. 2014 MONTELUKAST SODIUM 50339019805 Active Meenu Alejo LPN Active TYLENOL 325 MG ORAL TABLET 3 by mouth q4h as needed ACETAMINOPHEN 64845979572 Active Harinder Hernandez DO Active POTASSIUM CHLORIDE ER 10 MEQ ORAL TABLET EXTENDED RELEASE take 1 tab po daily POTASSIUM CHLORIDE 51742185835 No Longer Active Harinder Hernandez DO Active PREDNISONE 20 MG ORAL TABLET 1 TID x 2 days, then 1 BID x 3 days, then 1 Daily x 3 days, then stop PREDNISONE 80991536222 No Longer Active Jillina Frazell MAHENDRA Active LEVAQUIN 500 MG ORAL TABLET 1 tablet by mouth daily LEVOFLOXACIN 50021430522 No Longer Active Jillina Fradankl MAHENDRA Active NEURONTIN 300 MG ORAL CAPSULE 1 cap by mouth three times daily for restless leg GABAPENTIN 38308967636 No Longer Active Harinder Hernandez DO Active BENZONATATE 100 MG ORAL CAPSULE 1 cap po TID PRN BENZONATATE 01721697190 No Longer Active Harinder Hernandez DO Active MONTELUKAST SODIUM 10 MG ORAL TABLET 1 tab po in the evening 2014 MONTELUKAST SODIUM 58018562946 No Longer Active Harinder Hernandez DO Active MUPIROCIN 2 % EXTERNAL OINTMENT apply to affected area BID x 14 days MUPIROCIN 78446431117 No Longer Active Harinder Hernandez DO Active TYLENOL EXTRA STRENGTH 500 MG ORAL TABLET as needed ACETAMINOPHEN 92438808991 No Longer Active Harinder Hernandez DO Active PREDNISONE 10 MG ORAL TABLET 1 tab po daily PREDNISONE 72657321709 No Longer Active Harinder Hernandez DO Active PREDNISONE 20 MG ORAL TABLET 2 tabs daily for 4 days, 1 tab daily for 4 days, 1/2 tab daily for 4 days PREDNISONE 78367459445 No Longer Active Harinder Hernandez DO Active AZITHROMYCIN 250 MG ORAL TABLET 2 po qd x 1 day, then 1 po qd x 4 days 04/06 AZITHROMYCIN 59255288792 No Longer Active Harinder Hernandez DO Active PREDNISONE 20 MG ORAL TABLET 3 tabs today, then 1 tab twice daily for 3 day, then one daily for three days PREDNISONE 93725508543 No Longer Active Harinder Hernandez DO Active NIFEDIAC CC 30 MG ORAL TABLET EXTENDED RELEASE 24 HOUR 1 tablet daily for raynaud's syndrome NIFEDIPINE 53972195557 No Longer Active Tawnya Pardo MA Active AMBIEN 10 MG ORAL TABLET 1/2 tab by mouth at bedtime as needed for sleep 2013 ZOLPIDEM TARTRATE 43302677997 Active Meenu Alejo LPN Active CLONAZEPAM 1 MG ORAL TABLET 1 tablet at bedtime for insomnia and restless legs CLONAZEPAM 05903650933 Active Meenu Alejo LPN Active CLONAZEPAM 0.5 MG ORAL TABLET 1 tab po daily CLONAZEPAM 98663547041 No Longer Active Harinder Hernandez DO Active PREDNISONE 10 MG ORAL TABLET 1 tablet daily for COPD PREDNISONE 93178305964 Active Kortney Mccain Active PROAIR HFA 108 (90 Base) MCG/ACT INHALATION AEROSOL SOLUTION 2 puffs four times a day as needed ALBUTEROL SULFATE 28265563155 Active Harinder Hernandez DO Active FLOVENT HFA 110 MCG/ACT INHALATION AEROSOL 2 puffs inhaled b.i.d. FLUTICASONE PROPIONATE HFA 08918654162 Active Kortney Mccain Active ACIPHEX 20 MG ORAL TABLET DELAYED RELEASE 1 tab po daily RABEPRAZOLE SODIUM 96306247033 Active Meenu Melo CHEN Active CLONAZEPAM 0.5 MG ORAL TABLET 1 tab po daily CLONAZEPAM 0.5 MG ORAL TABLET 658355 CLONAZEPAM Inactive PREDNISONE 20 MG ORAL TABLET 3 tabs today, then 1 tab twice daily for 3 day, then one daily for three days PREDNISONE 20 MG ORAL TABLET 435678 PREDNISONE Inactive PREDNISONE 20 MG ORAL TABLET 2 tabs daily for 4 days, 1 tab daily for 4 days, 1/2 tab daily for 4 days PREDNISONE 20 MG ORAL TABLET 960180 PREDNISONE Inactive PREDNISONE 10 MG ORAL TABLET 1 tab po daily PREDNISONE 10 MG ORAL TABLET 692449 PREDNISONE Inactive TYLENOL EXTRA STRENGTH 500 MG ORAL TABLET as needed TYLENOL EXTRA STRENGTH 500 MG ORAL TABLET 334442 ACETAMINOPHEN Inactive MUPIROCIN 2 % EXTERNAL OINTMENT apply to affected area BID x 14 days MUPIROCIN 2 % EXTERNAL OINTMENT 902784 MUPIROCIN Inactive MONTELUKAST SODIUM 10 MG ORAL TABLET 1 tab po in the evening 2014 MONTELUKAST SODIUM 10 MG ORAL TABLET 346463 MONTELUKAST SODIUM Inactive BENZONATATE 100 MG ORAL CAPSULE 1 cap po TID PRN BENZONATATE 100 MG ORAL CAPSULE 187051 BENZONATATE Inactive NEURONTIN 300 MG ORAL CAPSULE 1 cap by mouth three times daily for restless leg NEURONTIN 300 MG ORAL CAPSULE 800777 GABAPENTIN Inactive LEVAQUIN 500 MG ORAL TABLET 1 tablet by mouth daily LEVAQUIN 500 MG ORAL TABLET 409254 LEVOFLOXACIN Inactive PREDNISONE 20 MG ORAL TABLET 1 TID x 2 days, then 1 BID x 3 days, then 1 Daily x 3 days, then stop PREDNISONE 20 MG ORAL TABLET 551837 PREDNISONE Inactive POTASSIUM CHLORIDE ER 10 MEQ ORAL TABLET EXTENDED RELEASE take 1 tab po daily POTASSIUM CHLORIDE ER 10 MEQ ORAL TABLET EXTENDED RELEASE POTASSIUM CHLORIDE Inactive PREDNISONE 20 MG ORAL TABLET 1 tab twice daily for 3 day, then one daily for three days PREDNISONE 20 MG ORAL TABLET 465511 PREDNISONE Inactive TESSALON PERLES 100 MG ORAL CAPSULE 1 to 2 tablets by mouth 3 times daily as needed for cough TESSALON PERLES 100 MG ORAL CAPSULE 900706 BENZONATATE Inactive POTASSIUM CHLORIDE ER 10 MEQ ORAL CAPSULE EXTENDED RELEASE 1 capsule by mouth daily POTASSIUM CHLORIDE ER 10 MEQ ORAL CAPSULE EXTENDED RELEASE POTASSIUM CHLORIDE Inactive NITROSTAT 0.4 MG SUBLINGUAL TABLET SUBLINGUAL 1 tab under tongueas needed for chest pain ( may take 3 total, 5 min apart, then call 911) NITROSTAT 0.4 MG SUBLINGUAL TABLET SUBLINGUAL 944143 NITROGLYCERIN Inactive LOVASTATIN 40 MG ORAL TABLET 1 pill by mouth nightly for cholesterol LOVASTATIN 40 MG ORAL TABLET 017378 LOVASTATIN Inactive CEFDINIR 300 MG ORAL CAPSULE take 1 cap po bid x 10 days CEFDINIR 300 MG ORAL CAPSULE 922835 CEFDINIR Inactive ACEBUTOLOL HCL 200 MG ORAL CAPSULE 1 cap in the morning and 2 caps in the evening ACEBUTOLOL HCL 200 MG ORAL CAPSULE 717962 ACEBUTOLOL HCL Inactive VENTOLIN HFA 108 (90 Base) MCG/ACT INHALATION AEROSOL SOLUTION 2 -4 puffs four times a day PRN VENTOLIN HFA 108 (90 Base) MCG/ ACT INHALATION AEROSOL SOLUTION ALBUTEROL SULFATE Inactive LEVAQUIN 500 MG ORAL TABLET Take 1 tab po daily x 8 days LEVAQUIN 500 MG ORAL TABLET 318815 LEVOFLOXACIN Inactive PREDNISONE 20 MG ORAL TABLET 2 tabs daily for 4 days, 1 tab daily for 4 days, 1/2 tab daily for 4 days PREDNISONE 20 MG ORAL TABLET 119939 PREDNISONE Inactive LOVASTATIN 40 MG ORAL TABLET Take 1 tab po every hs LOVASTATIN 40 MG ORAL TABLET 640885 LOVASTATIN Inactive DILAUDID 2 MG ORAL TABLET Take 1/2 tab po every 4 hours as needed for pain DILAUDID 2 MG ORAL TABLET 412033 HYDROMORPHONE HCL Inactive AMITRIPTYLINE HCL 25 MG ORAL TABLET 1 q hs prn AMITRIPTYLINE HCL 25 MG ORAL TABLET 538037 AMITRIPTYLINE HCL Inactive MECLIZINE HCL 25 MG ORAL TABLET 1 tablet three times daily for 3 days, then 1/ 2 tab three times daily for 3 days. MECLIZINE HCL 25 MG ORAL TABLET 868055 MECLIZINE HCL Inactive AMLODIPINE BESYLATE 5 MG ORAL TABLET Take 1 tab po daily AMLODIPINE BESYLATE 5 MG ORAL TABLET 220030 AMLODIPINE BESYLATE Inactive TOPIRAMATE 25 MG ORAL TABLET 1 tab po BID TOPIRAMATE 25 MG ORAL TABLET 009209 TOPIRAMATE Inactive PREDNISONE 20 MG ORAL TABLET 1 tablet twice daily for 2 days, then 1 tablet once daily for 2 days PREDNISONE 20 MG ORAL TABLET 608135 PREDNISONE Inactive PREDNISONE 20 MG ORAL TABLET 1 tab twice daily for 3 day, then one daily for three days PREDNISONE 20 MG ORAL TABLET 230569 PREDNISONE Inactive NIFEDIPINE ER 30 MG ORAL TABLET EXTENDED RELEASE 24 HOUR 1 daily NIFEDIPINE ER 30 MG ORAL TABLET EXTENDED RELEASE 24 HOUR NIFEDIPINE Inactive AMLODIPINE BESYLATE 5 MG ORAL TABLET 1 tablet by mouth daily 2016 AMLODIPINE BESYLATE 5 MG ORAL TABLET 143514 AMLODIPINE BESYLATE Inactive LASIX 20 MG ORAL TABLET 1 tablet by mouth every morning LASIX 20 MG ORAL TABLET 867707 FUROSEMIDE Inactive POTASSIUM CHLORIDE ER 10 MEQ ORAL CAPSULE EXTENDED RELEASE 1 capsule BID 2016 POTASSIUM CHLORIDE ER 10 MEQ ORAL CAPSULE EXTENDED RELEASE POTASSIUM CHLORIDE Inactive POTASSIUM CHLORIDE 20 MEQ ORAL PACKET 1 tab po q day POTASSIUM CHLORIDE 20 MEQ ORAL PACKET 9386452 POTASSIUM CHLORIDE Inactive PREDNISONE 20 MG ORAL TABLET 2 tablets by mouth today, then 1 tablet by mouth days 2-3 PREDNISONE 20 MG ORAL TABLET 093872 PREDNISONE Inactive SPIRONOLACTONE 25 MG ORAL TABLET 1 tablet by mouth daily SPIRONOLACTONE 25 MG ORAL TABLET 627065 SPIRONOLACTONE Inactive AZITHROMYCIN 250 MG ORAL TABLET 2 po qd x 1 day, then 1 po qd x 4 days 04/06 AZITHROMYCIN 250 MG ORAL TABLET 628850 AZITHROMYCIN Inactive AZITHROMYCIN 250 MG ORAL TABLET 2 po qd x 1 day, then 1 po qd x 4 days 12/30 AZITHROMYCIN 250 MG ORAL TABLET 503888 AZITHROMYCIN Inactive PREDNISONE 20 MG ORAL TABLET 2 po qd x 5 days PREDNISONE 20 MG ORAL TABLET 519258 PREDNISONE Inactive Vital Signs Date Name Value [...] Panel - Chemistry sodium, serum 140 mmol/L 552-350 3647/07/13 potassium, serum 3.2 mmol/L 3.5-5.2 chloride, serum 103 mmol/L 98-107 carbon dioxide, venous blood 26.9 mmol/L 21.0-32.0 blood glucose 93 mg/dL 65-110 calcium, serum 9.2 mg/dL 8.5-10.1 urea nitrogen, blood 13 mg/dL 7-18 creatinine, serum 0.84 mg/dL 0.60-1.30 sodium, serum 140 mmol/L 220-535 7079/08/21 potassium, serum 3.8 mmol/L 3.5-5.2 chloride, serum [...] ... - Chemistry sodium, serum 141 mmol/L 733-500 5818/08/07 carbon dioxide, venous blood 34.0 mmol/L 21.0-32.0 [...] 1.40 mg/dL 0.00-1.00 cholesterol, serum 192 mg/dL 308-627 8874/10/19 triglyceride, serum, fasting 71 mg/dL 30-200 HDL cholesterol, serum 72 mg/dL 32-60 LDL cholesterol, serum 106 mg/dL 0-130 Lab Report: Rapid Strep - Lab Microbial identification kit, rapid strep method Negative Negative Lab Report: THEOPHYLLINE - Toxicology theophylline level, serum 3.1 ug/mL 10.0-20.0 Encounters Code Encounter Date Provider Facility CPT-31350 Level 3 Est. Patient 14:31:43 CDT Harinder Cr [facility] CPT-27671 Level 4 Est. Patient 10:17:51 SYNCHRONIZER Harinder Cr [facility] CPT-60944 Level 3 Est. Patient 12:36:15 SYNCHRONIZER Harinder Cr [facility] CPT-75330 Level 3 Est. Patient 15:14:45 SYNCHRONIZER Harinder Cr [facility] CPT-11012 Level 4 Est. Patient 14:45:25 CDT Harinder Cr [facility] CPT-49246 Level 4 Est. Patient 09:15:13 CDT Harinder Cr [facility] CPT-61560 Level 3 Est. Patient 11:51:58 CDT Harinder Cr [facility] CPT-56333 Level 3 Est. Patient 11:30:05 CDT Harinder Cr [facility] CPT-13995 Level 4 Est. Patient 10:19:23 CDT Harinder Hernandez [facility] CPT-82802 Level 3 Est. Patient 09:58:58 CDT Harinder Shaye David [facility] CPT-42782 Level 3 Est. Patient 12:37:21 CDT Harinder Shaye David [facility] CPT-00913 Level 3 Est. Patient 18:37:17 CDT Harinder Cr David [facility] CPT-36296 Level 4 Est. Patient 11:15:54 CDT Nettie Newberry MAHENDRA [facility] CPT-63019 Level 3 Est. Patient 16:42:24 CDT Harinder Cr David [facility] CPT-20376 Level 3 Est. Patient 15:03:36 CDT Harinder Cr David [facility] CPT-93854 Level 3 Est. Patient 15:03:20 CDT Harinder Cr David [facility] CPT-20199 Level 3 Est. Patient 12:14:34 CDT Harinder Shaye David [facility] CPT-49553 Level 3 Est. Patient 13:47:15 CDT Harinder Cr David [facility] CPT-07125 Level 3 Est. Patient 14:08:24 CDT Harinder Cr David [facility] CPT-26015 Level 3 Est. Patient 10:07:15 CDT Harinder Cr David [facility] CPT-92309 Level 3 Est. Patient 10:06:59 CDT Harinder Cr David [facility] CPT-33612 Level 3 Est. Patient 15:53:29 CDT aJe Morgan MD [facility] CPT-05820 Level 3 Est. Patient 17:19:04 CDT Harinder Hernandez [facility] CPT-68250 Level 3 Est. Patient 11:13:01 CDT Harinder Hernandez [facility] CPT-61621 Level 3 Est. Patient 09:03:58 CDT Harinder Hernandez [facility] CPT-77147 Level 3 Est. Patient 14:46:45 SYNCHRONIZER Harinder Hernandez [facility] CPT-75421 Level 3 Est. Patient 09:35:49 SYNCHRONIZER Harinder Hernandez [facility] CPT-18937 Level 3 Est. Patient 09:29:37 SYNCHRONIZER Harinder Hernandez [facility] CPT-28588 Level 3 Est. Patient 15:51:07 CDT Harinder Hernandez [facility] CPT-71681 Level 3 Est. Patient 18:13:13 CDT Harinder Hernandez [facility] CPT-36089 Level 3 Est. Patient 10:44:19 CDT Harinder Cr [facility] CPT-00512 Level 4 Est. Patient 10:07:19 SYNCHRONIZER Harinder Cr [facility] CPT-25361 Level 3 Est. Patient 15:59:32 SYNCHRONIZER Harinder Cr [facility] Procedures Code Procedure Name Date Entry Date Standard Description CPT-19336 Bone Density - XRAY USE ONLY 14:43:42 CDT CPT-G0009 Administration of Pneumococcal Vaccine 10:33:25 SYNCHRONIZER CPT-26674 Pneumovax 23 Injection Injectable 25 MCG/0.5ML 10:33:25 SYNCHRONIZER CPT-21036 First Vx - Ix admin for Medicare patients 10:33:25 SYNCHRONIZER CPT-48549 Fluzone Quadrivalent Intramuscular Suspension 0.5 ML 10: 33:25 SYNCHRONIZER CPT-Cryo Cryotherapy 10:17:51 SYNCHRONIZER CPT-G0438 Initial Annual Wellness Exam 10:08:59 SYNCHRONIZER CPT-87684 Abd compl w upright - XRAY USE ONLY 14:48:09 CDT 02/18 CPT-59578 Port a cath flush 13:46:05 CDT CPT-60532 Hip, complete, 2-3 views - XRAY USE ONLY 10:28:40 CDT CPT-91347 BMP - LAB USE ONLY 16:45:09 SYNCHRONIZER CPT-20599 Port a cath flush 12:00:13 SYNCHRONIZER CPT-TCMM Transitional Care Mgmt-Moderate 11:20:16 SYNCHRONIZER CPT-10899 First Vx - Ix admin for Medicare patients 17:35:15 CDT CPT-68660 Fluzone Preservative Free Intramuscular Suspension 17:35 :15 CDT CPT-85322 Microalbumin - LAB USE ONLY 11:52:05 CDT CPT-TCMM Transitional Care Mgmt-Moderate 11:33:57 CDT CPT-08016 No Charge Offi Visit 14:11:29 CDT CPT-28129 Magnesium - LAB USE ONLY 10:45:44 CDT CPT-42650 Lipid - LAB USE ONLY 10:45:44 CDT CPT-38719 CBC - LAB USE ONLY 10:45:44 CDT CPT-92880 Venipuncture Draw Fee 10:45:43 CDT CPT-99231 Venipuncture Draw Fee 18:21:27 CDT CPT-JTINJ Asp/Joint Injection 18:38:04 CDT CPT-72226 Immunization Each Additional Inj 17:38:04 CDT CPT-10548 Immunization Single Admin 17:38:04 CDT CPT-40484 Prevnar 13 17:38:04 CDT CPT-59091 Fluzone Quadrivalent preservative free (>=3yrs.) 17:38: 04 CDT CPT-75129 No Charge Offi Visit 11:14:03 CDT CPT-42224 Chest 2V Frontal and Lat 14:00:18 CDT CPT-OV Office Visit 16:10:28 CDT CPT-JTINJ Asp/Joint Injection 09:03:57 CDT CPT-Cryo Cryotherapy 09:35:49 SYNCHRONIZER CPT-JTINJ Asp/Joint Injection 09:34:45 SYNCHRONIZER CPT-J2930 Solu Medrol 125 mg (Methyl Prednisolone Sodium Succinate) 20:37:27 CDT CPT-91235 Abx/Therapy Injection 20:37:27 CDT CPT-66421 Port a cath flush 08:15:51 CDT CPT-05006 Port a cath flush 09:54:16 CDT CPT-85681 Port a cath flush 09:38:02 CDT CPT-91597 Port a cath flush 11:00:27 SYNCHRONIZER
--- OUTSIDE RECORDS SUMMARY | 2017-12-29 04:52 | XMS REPORT | Clinical Summary ---
Author Author Admin, QIE Organization [facility] Address Unknown Phone Unavailable Allergies, Adverse Reactions, [...] MEQ CPCR 1 capsule BID POTASSIUM CHLORIDE 46456691158 Active Kortney Mccain Active FLUOXETINE HCL 10 MG ORAL CAPS 1 po qd for depression/anxiety FLUOXETINE HCL 19914777360 Active Harinder Hernandez DO Active VOLTAREN 1 % GEL apply q 6-8 hour to left arm as needed for pain DICLOFENAC SODIUM 98863309936 Active Harinder Hernandez DO Active LASIX 20 MG TAB 1 tablet by mouth every morning FUROSEMIDE 56221148583 Prince Mccain Active POTASSIUM CHLORIDE 20 MEQ ORAL PACK 1 tab po BID POTASSIUM CHLORIDE 19556529204 Prince Mccain Active ALBUTEROL SULFATE 0.083 % NEBU SOLN 1 vial neb q 4hrs for severe asthma. 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 FLUTICASONE PROPIONATE HFA 95944652347 Active Harinder Hernandez DO Active EPIPEN 2-BRUNA 0.3 MG/0.3ML INJ SOAJ 1 INJ NEEDED EPINEPHRINE 04897539316 Active Harinder Hernandez DO Active PREDNISONE 20 MG TAB 1 tab twice daily for 3 day, then one daily for three days PREDNISONE 56065788159 No Longer Active Harinder Hernandez DO Active PREDNISONE 20 MG TAB 1 tablet twice daily for 2 days, then 1 tablet once daily for 2 days PREDNISONE 89258969598 No Longer Active Harinder Hernandez DO Active ASMANEX 120 METERED DOSES 220 MCG/INH INH AEPB 2 puffs orally twice daily MOMETASONE FUROATE 18167637280 Active Jeri Sosa LPN Active TOPIRAMATE 25 MG TABS 1 tab po BID TOPIRAMATE 66114312708 No Longer Active Nettie Newberry APRN Active AMLODIPINE BESYLATE 5 MG ORAL TABS Take 1 tab po daily AMLODIPINE BESYLATE 62305676641 No Longer Active Nettie Newberry APRN Active MECLIZINE HCL 25 MG TAB 1 tablet three times daily for 3 days, then 1/2 tab three times daily for 3 days. MECLIZINE HCL 05631494296 No Longer Active Nettie Newberry APRN Active AMITRIPTYLINE HCL 25 MG ORAL TABS 1 q hs prn AMITRIPTYLINE HCL 94613520713 No Longer Active Nettie Newberry APRN Active DILAUDID 2 MG ORAL TABS Take 1/2 tab po every 4 hours as needed for pain 2014 HYDROMORPHONE HCL 23734912951 No Longer Active Nettie Newberry APRN Active CLOPIDOGREL BISULFATE 75 MG ORAL TABS 1 tab by mouth once daily CLOPIDOGREL BISULFATE 16568286643 Active Harinder Hernandez DO Active ATORVASTATIN CALCIUM 10 MG ORAL TABS 1 at bedtime ATORVASTATIN CALCIUM 29450476674 Active Tawnya Pardo MA Active LOVASTATIN 40 MG ORAL TABS Take 1 tab po every hs LOVASTATIN 18986617137 No Longer Active Harinder Hernandez DO Active PREDNISONE 20 MG TAB 2 tabs daily for 4 days, 1 tab daily for 4 days, 1/2 tab daily for 4 days PREDNISONE 51069684322 No Longer Active Harinder Hernandez DO Active LEVAQUIN 500 MG ORAL TABS Take 1 tab po daily x 8 days LEVOFLOXACIN 11475863311 No Longer Active Harinder Hernandez DO Active VENTOLIN HFA 108 (90 BASE) MCG/ACT AERS 2 -4 puffs four times a day PRN 2013 ALBUTEROL SULFATE 54235450269 No Longer Active Jeri Sosa LPN Active ACEBUTOLOL HCL 200 MG CAPS 1 cap in the morning and 2 caps in the evening ACEBUTOLOL HCL 02270518580 No Longer Active Harinder Hernandez DO Active CEFDINIR 300 MG ORAL CAPS take 1 cap po bid x 10 days CEFDINIR 86596220554 No Longer Active Harinder Hernandez DO Active LOVASTATIN 40 MG TABS 1 pill by mouth nightly for cholesterol LOVASTATIN 78710064403 No Longer Active Nettie Newberry APRN Active NITROSTAT 0.4 MG SUBL 1 tab under tongueas needed for chest pain ( may take 3 total, 5 min apart, then call 911) NITROGLYCERIN 49263628916 No Longer Active Nettie Newberry APRN Active POTASSIUM CHLORIDE CR 10 MEQ CPCR 1 capsule by mouth daily 02/14 POTASSIUM CHLORIDE 99033865897 No Longer Active Nettie Newberry APRN Active TESSALON PERLES 100 MG CAP 1 to 2 tablets by mouth 3 times daily as needed for cough BENZONATATE 30095878775 No Longer Active Nettie Newberry APRN Active THEOPHYLLINE ER 200 MG ORAL [id number] Take 1 tab every 12 hours THEOPHYLLINE 97483052669 Active Kortneyalice Mccain Active PREDNISONE 20 MG TAB 2 po qd x 5 days PREDNISONE 84883561376 No Longer Active Jae Morgan MD Active AZITHROMYCIN 250 MG TABS 2 po qd x 1 day, then 1 po qd x 4 days AZITHROMYCIN 56893603407 No Longer Active Jae Morgan MD Active PREDNISONE 20 MG TAB 1 tab twice daily for 3 day, then one daily for three days PREDNISONE 68812718818 No Longer Active Jae Morgan MD Active SINGULAIR 10 MG TABS 1 pill by mouth every evening for breathing. MONTELUKAST SODIUM 41497922297 Active Tawnya Pardo MA Active TYLENOL 325 MG TAB 3 by mouth q4h as needed ACETAMINOPHEN 31394960671 Active Harinder Hernandez DO Active POTASSIUM CHLORIDE ER 10 MEQ CR-TABS take 1 tab po daily POTASSIUM CHLORIDE 93402089555 No Longer Active Harinder Hernandez DO Active PREDNISONE 20 MG TAB 1 TID x 2 days, then 1 BID x 3 days, then 1 Daily x 3 days, then stop PREDNISONE 86293760829 No Longer Active Jillina Frashai MCCRAY Active LEVAQUIN 500 MG TAB 1 tablet by mouth daily LEVOFLOXACIN 54140504052 No Longer Active Jillina Frazell MAHENDRA Active NEURONTIN 300 MG CAP 1 cap by mouth three times daily for restless leg 06/22 GABAPENTIN 50751952400 No Longer Active Harinder Hernandez DO Active BENZONATATE 100 MG CAPS 1 cap po TID PRN BENZONATATE 95184895043 No Longer Active Harinder Hernandez DO Active MONTELUKAST SODIUM 10 MG TABS 1 tab po in the evening MONTELUKAST SODIUM 59347400636 No Longer Active Harinder Hernandez DO Active MUPIROCIN 2 % OINT apply to affected area BID x 14 days MUPIROCIN 75167917648 No Longer Active Harinder Hernandez DO Active TYLENOL EXTRA STRENGTH 500 MG TABS as needed ACETAMINOPHEN 41342097634 No Longer Active Harinder Hernandez DO Active PREDNISONE 10 MG TABS 1 tab po daily PREDNISONE 91511631401 No Longer Active Harinder Hernandez DO Active PREDNISONE 20 MG TAB 2 tabs daily for 4 days, 1 tab daily for 4 days, 1/2 tab daily for 4 days PREDNISONE 19277042019 No Longer Active Harinder Hernandez DO Active AZITHROMYCIN 250 MG TABS 2 po qd x 1 day, then 1 po qd x 4 days AZITHROMYCIN 78560438000 No Longer Active Harinder Hernandez DO Active PREDNISONE 20 MG TAB 3 tabs today, then 1 tab twice daily for 3 day, then one daily for three days PREDNISONE 20745385772 No Longer Active Harinder Hernandez DO Active NIFEDIAC CC 30 MG [id number] 1 tablet daily for raynaud's syndrome NIFEDIPINE 90122466216 No Longer Active Tawnya Pardo MA Active AMBIEN 10 MG TAB 1/2 tab by mouth at bedtime as needed for sleep ZOLPIDEM TARTRATE 10178449569 Active Ciera Pimentel Active CLONAZEPAM 1 MG TABS 1 tablet at bedtime for insomnia and restless legs 09/14 CLONAZEPAM 00206998602 Active Harinder Hernandez DO Active CLONAZEPAM 0.5 MG TABS 1 tab po daily CLONAZEPAM 21589448222 No Longer Active Harinder Hernandez DO Active PREDNISONE 10 MG TAB 1 tablet daily for COPD PREDNISONE 99220722105 Active Ciera Pimentel Active PROAIR HFA 108 (90 BASE) MCG/ACT AERS 2 puffs four times a day as needed 2012 ALBUTEROL SULFATE 46704334890 Active Harinder Hernandez DO Active FLOVENT HFA 110 MCG/ACT AERO 2 puffs inhaled b.i.d. FLUTICASONE PROPIONATE HFA 82157097900 Active Kortney Mccain Active ACIPHEX 20 MG TBEC 1 tab po daily RABEPRAZOLE SODIUM 64571697902 Active Kaylah Newberry Active CLONAZEPAM 0.5 MG TABS 1 tab po daily CLONAZEPAM 0.5 MG TABS 162778 CLONAZEPAM Inactive PREDNISONE 20 MG TAB 3 tabs today, then 1 tab twice daily for 3 day, then one daily for three days PREDNISONE 20 MG TAB 574559 PREDNISONE Inactive PREDNISONE 20 MG TAB 2 tabs daily for 4 days, 1 tab daily for 4 days, 1/2 tab daily for 4 days PREDNISONE 20 MG TAB 417438 PREDNISONE Inactive PREDNISONE 10 MG TABS 1 tab po daily PREDNISONE 10 MG TABS 782904 PREDNISONE Inactive TYLENOL EXTRA STRENGTH 500 MG TABS as needed TYLENOL EXTRA STRENGTH 500 MG TABS 159642 ACETAMINOPHEN Inactive MUPIROCIN 2 % OINT apply to affected area BID x 14 days MUPIROCIN 2 % OINT 121248 MUPIROCIN Inactive MONTELUKAST SODIUM 10 MG TABS 1 tab po in the evening MONTELUKAST SODIUM 10 MG TABS 433706 MONTELUKAST SODIUM Inactive BENZONATATE 100 MG CAPS 1 cap po TID PRN BENZONATATE 100 MG CAPS 849691 BENZONATATE Inactive NEURONTIN 300 MG CAP 1 cap by mouth three times daily for restless leg 06/22 NEURONTIN 300 MG CAP 120577 GABAPENTIN Inactive LEVAQUIN 500 MG TAB 1 tablet by mouth daily LEVAQUIN 500 MG TAB 124175 LEVOFLOXACIN Inactive PREDNISONE 20 MG TAB 1 TID x 2 days, then 1 BID x 3 days, then 1 Daily x 3 days, then stop PREDNISONE 20 MG TAB 018869 PREDNISONE Inactive POTASSIUM CHLORIDE ER 10 MEQ CR-TABS take 1 tab po daily POTASSIUM CHLORIDE ER 10 MEQ CR-TABS POTASSIUM CHLORIDE Inactive PREDNISONE 20 MG TAB 1 tab twice daily for 3 day, then one daily for three days PREDNISONE 20 MG TAB 587879 PREDNISONE Inactive TESSALON PERLES 100 MG CAP 1 to 2 tablets by mouth 3 times daily as needed for cough TESSALON PERLES 100 MG CAP 432629 BENZONATATE Inactive POTASSIUM CHLORIDE CR 10 MEQ CPCR 1 capsule by mouth daily 02/14 POTASSIUM CHLORIDE CR 10 MEQ CPCR POTASSIUM CHLORIDE Inactive NITROSTAT 0.4 MG SUBL 1 tab under tongueas needed for chest pain ( may take 3 total, 5 min apart, then call 911) NITROSTAT 0.4 MG SUBL 612516 NITROGLYCERIN Inactive LOVASTATIN 40 MG TABS 1 pill by mouth nightly for cholesterol LOVASTATIN 40 MG TABS 175753 LOVASTATIN Inactive CEFDINIR 300 MG ORAL CAPS take 1 cap po bid x 10 days CEFDINIR 300 MG ORAL CAPS 872501 CEFDINIR Inactive ACEBUTOLOL HCL 200 MG CAPS 1 cap in the morning and 2 caps in the evening ACEBUTOLOL HCL 200 MG CAPS 872474 ACEBUTOLOL HCL Inactive VENTOLIN HFA 108 (90 BASE) MCG/ACT AERS 2 -4 puffs four times a day PRN 2013 VENTOLIN HFA 108 (90 BASE) MCG/ACT AERS ALBUTEROL SULFATE Inactive LEVAQUIN 500 MG ORAL TABS Take 1 tab po daily x 8 days LEVAQUIN 500 MG ORAL TABS 391810 LEVOFLOXACIN Inactive PREDNISONE 20 MG TAB 2 tabs daily for 4 days, 1 tab daily for 4 days, 1/2 tab daily for 4 days PREDNISONE 20 MG TAB 357547 PREDNISONE Inactive LOVASTATIN 40 MG ORAL TABS Take 1 tab po every hs LOVASTATIN 40 MG ORAL TABS LOVASTATIN Inactive DILAUDID 2 MG ORAL TABS Take 1/2 tab po every 4 hours as needed for pain 2014 DILAUDID 2 MG ORAL TABS 395303 HYDROMORPHONE HCL Inactive AMITRIPTYLINE HCL 25 MG ORAL TABS 1 q hs prn AMITRIPTYLINE HCL 25 MG ORAL TABS 204037 AMITRIPTYLINE HCL Inactive MECLIZINE HCL 25 MG TAB 1 tablet three times daily for 3 days, then 1/2 tab three times daily for 3 days. MECLIZINE HCL 25 MG TAB 003239 MECLIZINE HCL Inactive AMLODIPINE BESYLATE 5 MG ORAL TABS Take 1 tab po daily AMLODIPINE BESYLATE 5 MG ORAL TABS 448397 AMLODIPINE BESYLATE Inactive TOPIRAMATE 25 MG TABS 1 tab po BID TOPIRAMATE 25 MG TABS 472628 TOPIRAMATE Inactive PREDNISONE 20 MG TAB 1 tablet twice daily for 2 days, then 1 tablet once daily for 2 days PREDNISONE 20 MG TAB 618844 PREDNISONE Inactive PREDNISONE 20 MG TAB 1 tab twice daily for 3 day, then one daily for three days PREDNISONE 20 MG TAB 216959 PREDNISONE Inactive NIFEDIPINE ER 30 MG ORAL [id number] 1 daily NIFEDIPINE ER 30 MG ORAL [id number] NIFEDIPINE Inactive AMLODIPINE BESYLATE 5 MG TABS 1 tablet by mouth daily AMLODIPINE BESYLATE 5 MG TABS 075895 AMLODIPINE BESYLATE Inactive AZITHROMYCIN 250 MG TABS 2 po qd x 1 day, then 1 po qd x 4 days AZITHROMYCIN 250 MG TABS 5598723 AZITHROMYCIN Inactive AZITHROMYCIN 250 MG TABS 2 po qd x 1 day, then 1 po qd x 4 days AZITHROMYCIN 250 MG TABS 8614393 AZITHROMYCIN Inactive PREDNISONE 20 MG TAB 2 po qd x 5 days PREDNISONE 20 MG TAB 691539 PREDNISONE Inactive Vital Signs Date Name Value [...] Panel - Chemistry sodium, serum 137 mmol/L 583-851 2868/01/03 potassium, serum 3.4 mmol/L 3.5-5.2 chloride, serum 102 mmol/L 98-107 carbon dioxide, venous blood 29.2 mmol/L 21.0-32.0 blood glucose 87 mg/dL 65-110 calcium, serum 8.5 mg/dL 8.5-10.1 urea nitrogen, blood 8 mg/dL 7-18 creatinine, serum 0.82 mg/dL 0.55-1.30 sodium, serum 140 mmol/L 683-676 9960/07/13 potassium, serum 3.2 mmol/L 3.5-5.2 chloride, serum [...] Magnesium - Chemistry cholesterol, serum 180 mg/dL 442-158 0259/08/08 triglyceride, serum, fasting 92 mg/dL 30-200 HDL cholesterol, serum 66 mg/dL 32-96 LDL cholesterol, serum 96 mg/dL 0-130 sodium, serum 142 mmol/L 748-913 5093/08/08 carbon dioxide, venous blood 27.4 mmol/L 21.0-32.0 [...] 10.0-20.0 Encounters Code Encounter Date Provider Facility CPT-59092 Level 4 Est. Patient 09:15:13 CDT Harinder Cr [facility] CPT-45948 Level 3 Est. Patient 11:51:58 CDT Harinder Cr [facility] CPT-57071 Level 3 Est. Patient 11:30:05 CDT Harinder Cr [facility] CPT-64559 Level 4 Est. Patient 10:19:23 CDT Harinder Cr [facility] CPT-70720 Level 3 Est. Patient 09:58:58 CDT Harinder Cr [facility] CPT-41261 Level 3 Est. Patient 12:37:21 CDT Harinder Cr [facility] CPT-86137 Level 3 Est. Patient 18:37:17 CDT Harinder Cr [facility] CPT-00140 Level 4 Est. Patient 11:15:54 CDT Nettie Newberry [facility] CPT-51131 Level 3 Est. Patient 16:42:24 CDT Harinder Cr [facility] CPT-49789 Level 3 Est. Patient 15:03:36 CDT Harinder Cr [facility] CPT-37213 Level 3 Est. Patient 15:03:20 CDT Harinder Cr [facility] CPT-26496 Level 3 Est. Patient 12:14:34 CDT Harinder Hernandez [facility] CPT-84639 Level 3 Est. Patient 13:47:15 CDT Harinder Hernandez [facility] CPT-43036 Level 3 Est. Patient 14:08:24 CDT Harinder Hernandez [facility] CPT-60114 Level 3 Est. Patient 10:07:15 CDT Harinder Hernandez [facility] CPT-84368 Level 3 Est. Patient 10:06:59 CDT Harinder Hernandez [facility] CPT-33599 Level 3 Est. Patient 15:53:29 CDT Jae Morgan [facility] CPT-31550 Level 3 Est. Patient 17:19:04 CDT Harinder Hernandez [facility] CPT-08721 Level 3 Est. Patient 11:13:01 CDT Harinder Hernandez [facility] CPT-54947 Level 3 Est. Patient 09:03:58 CDT Harinder Cr [facility] CPT-03645 Level 3 Est. Patient 14:46:45 PULLMAN CLERK Harinder Hernandez [facility] CPT-86224 Level 3 Est. Patient 09:35:49 PULLMAN CLERK Harinder Hernandez [facility] CPT-41300 Level 3 Est. Patient 09:29:37 PULLMAN CLERK Harinder Hernandez [facility] CPT-66556 Level 3 Est. Patient 15:51:07 CDT Harinder Hernandez [facility] CPT-34071 Level 3 Est. Patient 18:13:13 CDT Harinder Shaye Hernandez [facility] CPT-21166 Level 3 Est. Patient 10:44:19 CDT Harinder Cr [facility] CPT-84742 Level 4 Est. Patient 10:07:19 PULLMAN CLERK Harinder Shaye David [facility] CPT-59030 Level 3 Est. Patient 15:59:32 PULLMAN CLERK Harinder Cr [facility] Procedures Code Procedure Name Date Entry Date Standard Description CPT-65175 Port a cath flush 13:46:05 CDT CPT-28832 Hip, complete, 2-3 views - XRAY USE ONLY 10:28:40 CDT CPT-58986 BMP - LAB USE ONLY 16:45:09 PULLMAN CLERK CPT-36912 Port a cath flush 12:00:13 PULLMAN CLERK CPT-TCMM Transitional Care Mgmt-Moderate 11:20:16 PULLMAN CLERK CPT-43120 First Vx - Ix admin for Medicare patients 17:35:15 CDT CPT-92427 Fluzone Preservative Free Intramuscular Suspension 17:35 :15 CDT CPT-08897 Microalbumin - LAB USE ONLY 11:52:05 CDT CPT-TCMM Transitional Care Mgmt-Moderate 11:33:57 CDT CPT-46838 No Charge Offi Visit 14:11:29 CDT CPT-27111 Magnesium - LAB USE ONLY 10:45:44 CDT CPT-51878 Lipid - LAB USE ONLY 10:45:44 CDT CPT-52037 CBC - LAB USE ONLY 10:45:44 CDT CPT-39756 Venipuncture Draw Fee 10:45:43 CDT CPT-15425 Venipuncture Draw Fee 18:21:27 CDT CPT-JTINJ Asp/Joint Injection 18:38:04 CDT CPT-98972 Immunization Each Additional Inj 17:38:04 CDT CPT-35371 Immunization Single Admin 17:38:04 CDT CPT-65640 Prevnar 13 17:38:04 CDT CPT-45888 Fluzone Quadrivalent preservative free (>=3yrs.) 17:38: 04 CDT CPT-50870 No Charge Offi Visit 11:14:03 CDT CPT-52626 Chest 2V Frontal and Lat 14:00:18 CDT CPT-OV Office Visit 16:10:28 CDT CPT-JTINJ Asp/Joint Injection 09:03:57 CDT CPT-Cryo Cryotherapy 09:35:49 PULLMAN CLERK CPT-JTINJ Asp/Joint Injection 09:34:45 PULLMAN CLERK CPT-J2930 Solu Medrol 125 mg (Methyl Prednisolone Sodium Succinate) 20:37:27 CDT CPT-74451 Abx/Therapy Injection 20:37:27 CDT CPT-93217 Port a cath flush 08:15:51 CDT CPT-28846 Port a cath flush 09:54:16 CDT CPT-27125 Port a cath flush 09:38:02 CDT CPT-36622 Port a cath flush 11:00:27 PULLMAN CLERK
--- OUTSIDE RECORDS SUMMARY | 2017-12-29 04:53 | XMS REPORT | Clinical Summary ---
[...] against streptococcus pneumoniae ( Pneumococcus) V03.82 Resolved aHrinder Cr David DO Need for prophylactic vaccination [...] 1 tablet by mouth daily POTASSIUM CHLORIDE 17209311192 Active Ciera Pimentel Active ALBUTEROL SULFATE 0.083 % NEBU SOLN 1 vial neb q 4hrs PRN Wheezing ALBUTEROL SULFATE 07552488083 Active Harinder Hernandez DO Active FLOVENT HFA 110 MCG/ACT AERO 2 puffs inhaled b.i.d. FLUTICASONE PROPIONATE HFA 18588010239 Active Harinder Hernandez DO Active POTASSIUM CHLORIDE CR 10 MEQ CPCR 1 capsule by mouth daily POTASSIUM CHLORIDE 43769257922 Active Harinder Hernandez DO Active EPIPEN 2-BRUNA 0.3 MG/0.3ML INJ SOAJ 1 INJ NEEDED EPINEPHRINE 83107246294 Active Tawnya Pardo MA Active PREDNISONE 20 MG TAB 1 tab twice daily for 3 day, then one daily for three days PREDNISONE 14030865377 No Longer Active Harinder Hernandez DO Active PREDNISONE 20 MG TAB 1 tablet twice daily for 2 days, then 1 tablet once daily for 2 days PREDNISONE 47213230883 No Longer Active Harinder Hernandez DO Active ASMANEX 120 METERED DOSES 220 MCG/INH INH AEPB 2 puffs orally twice daily MOMETASONE FUROATE 05868112399 Active Jeri Sosa RPT,RMA Active NIFEDIPINE ER 30 MG ORAL [id number] 1 daily NIFEDIPINE 53697113081 Active Harinder Hernandez DO Active TOPIRAMATE 25 MG TABS 1 tab po BID TOPIRAMATE 91592323997 No Longer Active Nettie Newberry APRN Active AMLODIPINE BESYLATE 5 MG ORAL TABS Take 1 tab po daily AMLODIPINE BESYLATE 17051803861 No Longer Active Nettie Newberry APRN Active MECLIZINE HCL 25 MG TAB 1 tablet three times daily for 3 days, then 1/2 tab three times daily for 3 days. MECLIZINE HCL 98842266691 No Longer Active Nettieog Newberry APRN Active AMITRIPTYLINE HCL 25 MG ORAL TABS 1 q hs prn AMITRIPTYLINE HCL 39818787854 No Longer Active Nettieog Newberry APRN Active DILAUDID 2 MG ORAL TABS Take 1/2 tab po every 4 hours as needed for pain 2014 HYDROMORPHONE HCL 39657340639 No Longer Active Nettie Newberry APRN Active CLOPIDOGREL BISULFATE 75 MG ORAL TABS 1 tab by mouth once daily CLOPIDOGREL BISULFATE 31722885721 Active Tawnya Pardo MA Active ATORVASTATIN CALCIUM 10 MG ORAL TABS 1 at bedtime ATORVASTATIN CALCIUM 27972058057 Active Tawnya Pardo MA Active LOVASTATIN 40 MG ORAL TABS Take 1 tab po every hs LOVASTATIN 66395940552 No Longer Active Harinder Hernandez DO Active PREDNISONE 20 MG TAB 2 tabs daily for 4 days, 1 tab daily for 4 days, 1/2 tab daily for 4 days PREDNISONE 44512897716 No Longer Active Harinder Hernandez DO Active LEVAQUIN 500 MG ORAL TABS Take 1 tab po daily x 8 days LEVOFLOXACIN 44574465216 No Longer Active Harinder Hernandez DO Active VENTOLIN HFA 108 (90 BASE) MCG/ACT AERS 2 -4 puffs four times a day PRN 2013 ALBUTEROL SULFATE 30550959351 No Longer Active Jeri Sosa RPT,RMA Active ACEBUTOLOL HCL 200 MG CAPS 1 cap in the morning and 2 caps in the evening ACEBUTOLOL HCL 78471531632 No Longer Active Harinder Hernandez DO Active CEFDINIR 300 MG ORAL CAPS take 1 cap po bid x 10 days CEFDINIR 55571910141 No Longer Active Harinder Hernandez DO Active LOVASTATIN 40 MG TABS 1 pill by mouth nightly for cholesterol LOVASTATIN 58151481564 No Longer Active Nettie Newberry APRN Active NITROSTAT 0.4 MG SUBL 1 tab under tongueas needed for chest pain ( may take 3 total, 5 min apart, then call 911) NITROGLYCERIN 76212532390 No Longer Active Nettie Newberry APRN Active POTASSIUM CHLORIDE CR 10 MEQ CPCR 1 capsule by mouth daily 02/14 POTASSIUM CHLORIDE 32380932501 No Longer Active Nettie Newberry APRN Active TESSALON PERLES 100 MG CAP 1 to 2 tablets by mouth 3 times daily as needed for cough BENZONATATE 09688836234 No Longer Active Nettie Newberry APRN Active THEOPHYLLINE ER 200 MG ORAL [id number] Take 1 tab every 12 hours THEOPHYLLINE 51444746971 Active Tawnya Pardo MA Active PREDNISONE 20 MG TAB 2 po qd x 5 days PREDNISONE 09950956773 No Longer Active Jae Morgan MD Active AZITHROMYCIN 250 MG TABS 2 po qd x 1 day, then 1 po qd x 4 days AZITHROMYCIN 61025871167 No Longer Active Jae Morgan MD Active PREDNISONE 20 MG TAB 1 tab twice daily for 3 day, then one daily for three days PREDNISONE 40430678058 No Longer Active Jae Morgan MD Active SINGULAIR 10 MG TABS 1 pill by mouth every evening for breathing. MONTELUKAST SODIUM 22947557990 Active Tawnya Pardo MA Active TYLENOL 325 MG TAB 3 by mouth q4h as needed ACETAMINOPHEN 70229312325 Active Harinder Hernandez DO Active POTASSIUM CHLORIDE ER 10 MEQ CR-TABS take 1 tab po daily POTASSIUM CHLORIDE 80123853254 No Longer Active Harinder Hernandez DO Active PREDNISONE 20 MG TAB 1 TID x 2 days, then 1 BID x 3 days, then 1 Daily x 3 days, then stop PREDNISONE 08945948754 No Longer Active John Montemayor APRN Active LEVAQUIN 500 MG TAB 1 tablet by mouth daily LEVOFLOXACIN 66375016724 No Longer Active John Montemayor APRN Active NEURONTIN 300 MG CAP 1 cap by mouth three times daily for restless leg 06/22 GABAPENTIN 18460516108 No Longer Active Harinder Hernandez DO Active BENZONATATE 100 MG CAPS 1 cap po TID PRN BENZONATATE 57438692879 No Longer Active Harinder Hernandez DO Active MONTELUKAST SODIUM 10 MG TABS 1 tab po in the evening MONTELUKAST SODIUM 61126350731 No Longer Active Harinder Hernandez DO Active MUPIROCIN 2 % OINT apply to affected area BID x 14 days MUPIROCIN 13345533387 No Longer Active Harinder Hernandez DO Active TYLENOL EXTRA STRENGTH 500 MG TABS as needed ACETAMINOPHEN 15807938230 No Longer Active Harinder Hernandez DO Active PREDNISONE 10 MG TABS 1 tab po daily PREDNISONE 53074101189 No Longer Active Harinder Hernandez DO Active PREDNISONE 20 MG TAB 2 tabs daily for 4 days, 1 tab daily for 4 days, 1/2 tab daily for 4 days PREDNISONE 14718090148 No Longer Active Harinder Hernandez DO Active AZITHROMYCIN 250 MG TABS 2 po qd x 1 day, then 1 po qd x 4 days AZITHROMYCIN 71354193408 No Longer Active Harinder Hernandez DO Active PREDNISONE 20 MG TAB 3 tabs today, then 1 tab twice daily for 3 day, then one daily for three days PREDNISONE 55879186781 No Longer Active Harinder Hernandez DO Active NIFEDIAC CC 30 MG [id number] 1 tablet daily for raynaud's syndrome NIFEDIPINE 04279439855 No Longer Active Tawnya Pardo MA Active AMBIEN 10 MG TAB 1/2 tab by mouth at bedtime as needed for sleep ZOLPIDEM TARTRATE 22706480406 Active Harinder Hernandez DO Active CLONAZEPAM 1 MG TABS 1 tablet at bedtime for insomnia and restless legs 09/14 CLONAZEPAM 22839137203 Active Harinder Hernandez DO Active CLONAZEPAM 0.5 MG TABS 1 tab po daily CLONAZEPAM 34954022595 No Longer Active Harinder Hernandez DO Active PREDNISONE 10 MG TAB 1 tablet daily for COPD PREDNISONE 65621014727 Active Tawnya Pardo MA Active PROAIR HFA 108 (90 BASE) MCG/ACT AERS 2 puffs four times a day as needed 2012 ALBUTEROL SULFATE 97670435295 Active Tawnya Pardo MA Active FLOVENT HFA 110 MCG/ACT AERO 2 puffs inhaled b.i.d. FLUTICASONE PROPIONATE HFA 02194919163 Active Tawnya Pardo MA Active ACIPHEX 20 MG TBEC 1 tab po daily RABEPRAZOLE SODIUM 64856037462 Active Kaylah Newberry Active CLONAZEPAM 0.5 MG TABS 1 tab po daily CLONAZEPAM 0.5 MG TABS 612838 CLONAZEPAM Inactive PREDNISONE 20 MG TAB 3 tabs today, then 1 tab twice daily for 3 day, then one daily for three days PREDNISONE 20 MG TAB 815512 PREDNISONE Inactive PREDNISONE 20 MG TAB 2 tabs daily for 4 days, 1 tab daily for 4 days, 1/2 tab daily for 4 days PREDNISONE 20 MG TAB 675600 PREDNISONE Inactive PREDNISONE 10 MG TABS 1 tab po daily PREDNISONE 10 MG TABS 164748 PREDNISONE Inactive TYLENOL EXTRA STRENGTH 500 MG TABS as needed TYLENOL EXTRA STRENGTH 500 MG TABS 083424 ACETAMINOPHEN Inactive MUPIROCIN 2 % OINT apply to affected area BID x 14 days MUPIROCIN 2 % OINT 163331 MUPIROCIN Inactive MONTELUKAST SODIUM 10 MG TABS 1 tab po in the evening MONTELUKAST SODIUM 10 MG TABS 20010818 MONTELUKAST SODIUM Inactive BENZONATATE 100 MG CAPS 1 cap po TID PRN BENZONATATE 100 MG CAPS 245192 BENZONATATE Inactive NEURONTIN 300 MG CAP 1 cap by mouth three times daily for restless leg 06/22 NEURONTIN 300 MG CAP 063973 GABAPENTIN Inactive LEVAQUIN 500 MG TAB 1 tablet by mouth daily LEVAQUIN 500 MG TAB 690555 LEVOFLOXACIN Inactive PREDNISONE 20 MG TAB 1 TID x 2 days, then 1 BID x 3 days, then 1 Daily x 3 days, then stop PREDNISONE 20 MG TAB 744291 PREDNISONE Inactive POTASSIUM CHLORIDE ER 10 MEQ CR-TABS take 1 tab po daily POTASSIUM CHLORIDE ER 10 MEQ CR-TABS POTASSIUM CHLORIDE Inactive PREDNISONE 20 MG TAB 1 tab twice daily for 3 day, then one daily for three days PREDNISONE 20 MG TAB 125595 PREDNISONE Inactive TESSALON PERLES 100 MG CAP 1 to 2 tablets by mouth 3 times daily as needed for cough TESSALON PERLES 100 MG CAP 662383 BENZONATATE Inactive POTASSIUM CHLORIDE CR 10 MEQ CPCR 1 capsule by mouth daily 02/14 POTASSIUM CHLORIDE CR 10 MEQ CPCR POTASSIUM CHLORIDE Inactive NITROSTAT 0.4 MG SUBL 1 tab under tongueas needed for chest pain ( may take 3 total, 5 min apart, then call 911) NITROSTAT 0.4 MG SUBL 398681 NITROGLYCERIN Inactive LOVASTATIN 40 MG TABS 1 pill by mouth nightly for cholesterol LOVASTATIN 40 MG TABS 293259 LOVASTATIN Inactive CEFDINIR 300 MG ORAL CAPS take 1 cap po bid x 10 days CEFDINIR 300 MG ORAL CAPS 532407 CEFDINIR Inactive ACEBUTOLOL HCL 200 MG CAPS 1 cap in the morning and 2 caps in the evening ACEBUTOLOL HCL 200 MG CAPS 184389 ACEBUTOLOL HCL Inactive VENTOLIN HFA 108 (90 BASE) MCG/ACT AERS 2 -4 puffs four times a day PRN 2013 VENTOLIN HFA 108 (90 BASE) MCG/ACT AERS ALBUTEROL SULFATE Inactive LEVAQUIN 500 MG ORAL TABS Take 1 tab po daily x 8 days LEVAQUIN 500 MG ORAL TABS 080271 LEVOFLOXACIN Inactive PREDNISONE 20 MG TAB 2 tabs daily for 4 days, 1 tab daily for 4 days, 1/2 tab daily for 4 days PREDNISONE 20 MG TAB 455567 PREDNISONE Inactive LOVASTATIN 40 MG ORAL TABS Take 1 tab po every hs LOVASTATIN 40 MG ORAL TABS 025016 LOVASTATIN Inactive DILAUDID 2 MG ORAL TABS Take 1/2 tab po every 4 hours as needed for pain 2014 DILAUDID 2 MG ORAL TABS 620811 HYDROMORPHONE HCL Inactive AMITRIPTYLINE HCL 25 MG ORAL TABS 1 q hs prn AMITRIPTYLINE HCL 25 MG ORAL TABS 527148 AMITRIPTYLINE HCL Inactive MECLIZINE HCL 25 MG TAB 1 tablet three times daily for 3 days, then 1/2 tab three times daily for 3 days. MECLIZINE HCL 25 MG TAB 700213 MECLIZINE HCL Inactive AMLODIPINE BESYLATE 5 MG ORAL TABS Take 1 tab po daily AMLODIPINE BESYLATE 5 MG ORAL TABS 003424 AMLODIPINE BESYLATE Inactive TOPIRAMATE 25 MG TABS 1 tab po BID TOPIRAMATE 25 MG TABS 352132 TOPIRAMATE Inactive PREDNISONE 20 MG TAB 1 tablet twice daily for 2 days, then 1 tablet once daily for 2 days PREDNISONE 20 MG TAB 866449 PREDNISONE Inactive PREDNISONE 20 MG TAB 1 tab twice daily for 3 day, then one daily for three days PREDNISONE 20 MG TAB 758463 PREDNISONE Inactive AZITHROMYCIN 250 MG TABS 2 po qd x 1 day, then 1 po qd x 4 days AZITHROMYCIN 250 MG TABS 1633009 AZITHROMYCIN Inactive AZITHROMYCIN 250 MG TABS 2 po qd x 1 day, then 1 po qd x 4 days AZITHROMYCIN 250 MG TABS 6185328 AZITHROMYCIN Inactive PREDNISONE 20 MG TAB 2 po qd x 5 days PREDNISONE 20 MG TAB 821130 PREDNISONE Inactive Vital Signs Date Name Value [...] Panel - Chemistry sodium, serum 137 mmol/L 910-754 7880/01/03 potassium, serum 3.4 mmol/L 3.5-5.2 chloride, serum [...] Magnesium - Chemistry cholesterol, serum 180 mg/dL 372-432 4468/08/08 triglyceride, serum, fasting 92 mg/dL 30-200 HDL cholesterol, serum 66 mg/dL 32-96 LDL cholesterol, serum 96 mg/dL 0-130 sodium, serum 142 mmol/L 567-511 1445/08/08 carbon dioxide, venous blood 27.4 mmol/L 21.0-32.0 [...] 10.0-20.0 Encounters Code Encounter Date Provider Facility CPT-62123 Level 3 Est. Patient 09:58:58 CDT Harinder Cr [facility] CPT-05049 Level 3 Est. Patient 12:37:21 CDT Harinder Cr [facility] CPT-48904 Level 3 Est. Patient 18:37:17 CDT Harinder Cr [facility] CPT-64048 Level 4 Est. Patient 11:15:54 CDT Nettie Newebrry [employer] [facility] CPT-75381 Level 3 Est. Patient 16:42:24 CDT Harinder Cr [facility] CPT-76391 Level 3 Est. Patient 15:03:36 CDT Harinder Cr [facility] CPT-79501 Level 3 Est. Patient 15:03:20 CDT Harinder Cr [facility] CPT-40986 Level 3 Est. Patient 12:14:34 CDT Harinder Cr [facility] CPT-16402 Level 3 Est. Patient 13:47:15 CDT Harinder Hernandez [facility] CPT-71125 Level 3 Est. Patient 14:08:24 CDT Harinder Hernandez [facility] CPT-70021 Level 3 Est. Patient 10:07:15 CDT Harinder Hernandez [facility] CPT-24266 Level 3 Est. Patient 10:06:59 CDT Harinder Hernandez [facility] CPT-01458 Level 3 Est. Patient 15:53:29 CDT Jae Morgan [facility] CPT-65316 Level 3 Est. Patient 17:19:04 CDT Harinder Hernandez [facility] CPT-77739 Level 3 Est. Patient 11:13:01 CDT Harinder Hernandez [facility] CPT-50888 Level 3 Est. Patient 09:03:58 CDT Harinder Hernandez [facility] CPT-23127 Level 3 Est. Patient 14:46:45 HUMAN RESOURCES SAFETY MANAGER Harinder Hernandez [facility] CPT-39734 Level 3 Est. Patient 09:35:49 HUMAN RESOURCES SAFETY MANAGER Harinder Hernandez [facility] CPT-02790 Level 3 Est. Patient 09:29:37 HUMAN RESOURCES SAFETY MANAGER Harinder Hernandez [facility] CPT-80814 Level 3 Est. Patient 15:51:07 CDT Harinder Hernandez [facility] CPT-64940 Level 3 Est. Patient 18:13:13 CDT Harinder Hernandez [facility] CPT-24136 Level 3 Est. Patient 10:44:19 CDT Harinder Hernandez [facility] CPT-15536 Level 4 Est. Patient 10:07:19 HUMAN RESOURCES SAFETY MANAGER Harinder Shaye David [facility] CPT-01998 Level 3 Est. Patient 15:59:32 HUMAN RESOURCES SAFETY MANAGER Harinder W David [facility] Procedures Code Procedure Name Date Entry Date Standard Description CPT-93737 BMP - LAB USE ONLY 16:45:09 HUMAN RESOURCES SAFETY MANAGER CPT-03955 Port a cath flush 12:00:13 HUMAN RESOURCES SAFETY MANAGER CPT-TCMM Transitional Care Mgmt-Moderate 11:20:16 HUMAN RESOURCES SAFETY MANAGER CPT-95812 First Vx - Ix admin for Medicare patients 17:35:15 CDT CPT-01144 Fluzone Preservative Free Intramuscular Suspension 17:35 :15 CDT CPT-34117 Microalbumin - LAB USE ONLY 11:52:05 CDT CPT-TCMM Transitional Care Mgmt-Moderate 11:33:57 CDT CPT-35707 No Charge Offi Visit 14:11:29 CDT CPT-44249 Magnesium - LAB USE ONLY 10:45:44 CDT CPT-32858 Lipid - LAB USE ONLY 10:45:44 CDT CPT-33942 CBC - LAB USE ONLY 10:45:44 CDT CPT-94247 Venipuncture Draw Fee 10:45:43 CDT CPT-84199 Venipuncture Draw Fee 18:21:27 CDT CPT-JTINJ Asp/Joint Injection 18:38:04 CDT CPT-52518 Immunization Each Additional Inj 17:38:04 CDT CPT-06376 Immunization Single Admin 17:38:04 CDT CPT-00588 Prevnar 13 17:38:04 CDT CPT-30055 Fluzone Quadrivalent preservative free (>=3yrs.) 17:38: 04 CDT CPT-05413 No Charge Offi Visit 11:14:03 CDT CPT-90746 Chest 2V Frontal and Lat 14:00:18 CDT CPT-OV Office Visit 16:10:28 CDT CPT-JTINJ Asp/Joint Injection 09:03:57 CDT CPT-Cryo Cryotherapy 09:35:49 HUMAN RESOURCES SAFETY MANAGER CPT-JTINJ Asp/Joint Injection 09:34:45 HUMAN RESOURCES SAFETY MANAGER CPT-J2930 Solu Medrol 125 mg (Methyl Prednisolone Sodium Succinate) 20:37:27 CDT CPT-01987 Abx/Therapy Injection 20:37:27 CDT CPT-62268 Port a cath flush 08:15:51 CDT CPT-33869 Port a cath flush 09:54:16 CDT CPT-34158 Port a cath flush 09:38:02 CDT CPT-70026 Port a cath flush 11:00:27 HUMAN RESOURCES SAFETY MANAGER
--- OUTSIDE RECORDS SUMMARY | 2017-12-29 04:55 | XMS REPORT | Clinical Summary ---
Author Author Admin, KAIN Organization [facility] Address Unknown Phone Unavailable Allergies, [...] positional vertigo Colon cancer screening V76.51 Active [facility] BUSINESS DEVELOPMENT CONSULTANT Screening for malignant neoplasms of colon Screening for malignant neoplasm, colon V76.51 Active [facility] BUSINESS DEVELOPMENT CONSULTANT Screening for malignant neoplasms of colon Pneumonia 486 Active Harinder Hernandez DO Pneumonia, organism unspecified Bacteremia 790.7 Active Harinder Hernandez DO Unspecified bacteremia Clostridium difficile colitis 008.45 Active Harinder Hernandez DO Intestinal infection due to clostridium difficile Abdominal pain, right lower quadrant 789.03 Active Harinder Hernandez DO Abdominal pain, right lower quadrant Needs vaccination for influenza V04.81 Active 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 Melonie GARDE MANAGER Need for prophylactic vaccination and inoculation against influenza Need for prophylactic vaccination against streptococcus pneumoniae ( Pneumococcus) V03.82 Active 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 Melonie GARDE MANAGER Need for prophylactic vaccination against Streptococcus [...] Take 1 tab po every hs LOVASTATIN 73644878907 Active Johny Dawkins MD Active AMLODIPINE BESYLATE 5 MG ORAL TABS Take 1 tab po daily AMLODIPINE BESYLATE 37956472696 Active Tawnya Pardo MA Active VENTOLIN HFA 108 (90 BASE) MCG/ACT AERS 2 -4 puffs four times a day PRN 2013 ALBUTEROL SULFATE 44373535885 No Longer Active Jeri Sosa RPT,RMA Active DILAUDID 2 MG ORAL TABS Take 1/2 tab po every 4 hours as needed for pain 2014 HYDROMORPHONE HCL 28274711184 Active Harinder Hernandez DO Active ACEBUTOLOL HCL 200 MG CAPS 1 cap in the morning and 2 caps in the evening ACEBUTOLOL HCL 26980085768 No Longer Active Harinder Hernandez DO Active CEFDINIR 300 MG ORAL CAPS take 1 cap po bid x 10 days CEFDINIR 33132786763 No Longer Active Harinder Hernandez DO Active AMITRIPTYLINE HCL 25 MG ORAL TABS 1 q hs prn AMITRIPTYLINE HCL 78415620266 Active Tawnya Pardo MA Active LOVASTATIN 40 MG TABS 1 pill by mouth nightly for cholesterol LOVASTATIN 51066331006 No Longer Active Nettie Newberry APRN Active NITROSTAT 0.4 MG SUBL 1 tab under tongueas needed for chest pain ( may take 3 total, 5 min apart, then call 911) NITROGLYCERIN 05297271885 No Longer Active Nettie Newberry APRN Active POTASSIUM CHLORIDE CR 10 MEQ CPCR 1 capsule by mouth daily 02/14 POTASSIUM CHLORIDE 26961200169 No Longer Active Nettie Newberry APRN Active TESSALON PERLES 100 MG CAP 1 to 2 tablets by mouth 3 times daily as needed for cough BENZONATATE 46793509637 No Longer Active Nettie Newberry APRN Active THEOPHYLLINE ER 200 MG ORAL [id number] Take 1 tab every 12 hours THEOPHYLLINE 80914214823 Active Tawnya Pardo MA Active PREDNISONE 20 MG TAB 2 po qd x 5 days PREDNISONE 75019541634 No Longer Active Jae Morgan MD Active AZITHROMYCIN 250 MG TABS 2 po qd x 1 day, then 1 po qd x 4 days AZITHROMYCIN 24603815496 No Longer Active Jae Morgan MD Active PREDNISONE 20 MG TAB 1 tab twice daily for 3 day, then one daily for three days PREDNISONE 64511498118 No Longer Active Jae Morgan MD Active MECLIZINE HCL 25 MG TAB 1 tablet three times daily for 3 days, then 1/2 tab three times daily for 3 days. MECLIZINE HCL 08906607543 Active Harinder Hernandez DO Active SINGULAIR 10 MG TABS 1 pill by mouth every evening for breathing. MONTELUKAST SODIUM 07977909077 Active Tawnya Pardo MA Active TYLENOL 325 MG TAB 3 by mouth q4h as needed ACETAMINOPHEN 43020705082 Active Harinder Hernandez DO Active POTASSIUM CHLORIDE ER 10 MEQ CR-TABS take 1 tab po daily POTASSIUM CHLORIDE 04364820847 No Longer Active Harinder Hernandez DO Active PREDNISONE 20 MG TAB 1 TID x 2 days, then 1 BID x 3 days, then 1 Daily x 3 days, then stop PREDNISONE 53632810660 No Longer Active Jillina Frazell BUSINESS DEVELOPMENT CONSULTANT Active LEVAQUIN 500 MG TAB 1 tablet by mouth daily LEVOFLOXACIN 45829731767 No Longer Active Jillina Frazell BUSINESS DEVELOPMENT CONSULTANT Active NEURONTIN 300 MG CAP 1 cap by mouth three times daily for restless leg 06/22 GABAPENTIN 68786489849 No Longer Active Harinder Hernandez DO Active BENZONATATE 100 MG CAPS 1 cap po TID PRN BENZONATATE 66852379775 No Longer Active Harinder Hernandez DO Active MONTELUKAST SODIUM 10 MG TABS 1 tab po in the evening MONTELUKAST SODIUM 90544543700 No Longer Active Harinder Hernandez DO Active MUPIROCIN 2 % OINT apply to affected area BID x 14 days MUPIROCIN 24896522215 No Longer Active Harinder Hernandez DO Active TYLENOL EXTRA STRENGTH 500 MG TABS as needed ACETAMINOPHEN 19972098298 No Longer Active Harinder Hernandez DO Active PREDNISONE 10 MG TABS 1 tab po daily PREDNISONE 18619766889 No Longer Active Harinder Hernandez DO Active PREDNISONE 20 MG TAB 2 tabs daily for 4 days, 1 tab daily for 4 days, 1/2 tab daily for 4 days PREDNISONE 62666347063 No Longer Active Harinder Hernandez DO Active AZITHROMYCIN 250 MG TABS 2 po qd x 1 day, then 1 po qd x 4 days AZITHROMYCIN 56265023730 No Longer Active Harinder W David DO Active PREDNISONE 20 MG TAB 3 tabs today, then 1 tab twice daily for 3 day, then one daily for three days PREDNISONE 32908455571 No Longer Active Harinder Hernandez DO Active NIFEDIAC CC 30 MG [id number] 1 tablet daily for raynaud's syndrome NIFEDIPINE 48140096807 No Longer Active Tawnya Pardo MA Active AMBIEN 10 MG TAB 1/2 tab by mouth at bedtime as needed for sleep ZOLPIDEM TARTRATE 86647893290 Active Harinder Hernandez DO Active CLONAZEPAM 1 MG TABS 1 tablet at bedtime for insomnia and restless legs 09/14 CLONAZEPAM 77922250455 Active Harinder Hernandez DO Active CLONAZEPAM 0.5 MG TABS 1 tab po daily CLONAZEPAM 13943392824 No Longer Active Harinder Hernandez DO Active PREDNISONE 10 MG TAB 1 tablet daily for COPD PREDNISONE 63752697264 Active Tawnya Pardo MA Active PROAIR HFA 108 (90 BASE) MCG/ACT AERS 2 puffs four times a day as needed 2012 ALBUTEROL SULFATE 27032063685 Active Tawnya Pardo MA Active FLOVENT HFA 110 MCG/ACT AERO 2 puffs inhaled b.i.d. FLUTICASONE PROPIONATE HFA 80777485636 Active Tawnya Pardo MA Active EPIPEN 0.3 MG/0.3ML URIEL DIRECTED EPINEPHRINE Active Demetrius JONHSON Active ACIPHEX 20 MG TBEC 1 tab po daily RABEPRAZOLE SODIUM 54302564767 Active Tawnya Pardo MA Active TOPIRAMATE 25 MG TABS 1 tab po BID TOPIRAMATE 45932652112 Active Tawnya Pardo MA Active CLONAZEPAM 0.5 MG TABS 1 tab po daily CLONAZEPAM 0.5 MG TABS 935298 CLONAZEPAM Inactive PREDNISONE 20 MG TAB 3 tabs today, then 1 tab twice daily for 3 day, then one daily for three days PREDNISONE 20 MG TAB 478202 PREDNISONE Inactive PREDNISONE 20 MG TAB 2 tabs daily for 4 days, 1 tab daily for 4 days, 1/2 tab daily for 4 days PREDNISONE 20 MG TAB 737351 PREDNISONE Inactive PREDNISONE 10 MG TABS 1 tab po daily PREDNISONE 10 MG TABS 076189 PREDNISONE Inactive TYLENOL EXTRA STRENGTH 500 MG TABS as needed TYLENOL EXTRA STRENGTH 500 MG TABS 913002 ACETAMINOPHEN Inactive MUPIROCIN 2 % OINT apply to affected area BID x 14 days MUPIROCIN 2 % OINT 828793 MUPIROCIN Inactive MONTELUKAST SODIUM 10 MG TABS 1 tab po in the evening MONTELUKAST SODIUM 10 MG TABS 20010818 MONTELUKAST SODIUM Inactive BENZONATATE 100 MG CAPS 1 cap po TID PRN BENZONATATE 100 MG CAPS 546089 BENZONATATE Inactive NEURONTIN 300 MG CAP 1 cap by mouth three times daily for restless leg 06/22 NEURONTIN 300 MG CAP 189757 GABAPENTIN Inactive LEVAQUIN 500 MG TAB 1 tablet by mouth daily LEVAQUIN 500 MG TAB 343372 LEVOFLOXACIN Inactive PREDNISONE 20 MG TAB 1 TID x 2 days, then 1 BID x 3 days, then 1 Daily x 3 days, then stop PREDNISONE 20 MG TAB 886469 PREDNISONE Inactive POTASSIUM CHLORIDE ER 10 MEQ CR-TABS take 1 tab po daily POTASSIUM CHLORIDE ER 10 MEQ CR-TABS POTASSIUM CHLORIDE Inactive PREDNISONE 20 MG TAB 1 tab twice daily for 3 day, then one daily for three days PREDNISONE 20 MG TAB 390089 PREDNISONE Inactive TESSALON PERLES 100 MG CAP 1 to 2 tablets by mouth 3 times daily as needed for cough TESSALON PERLES 100 MG CAP 841508 BENZONATATE Inactive POTASSIUM CHLORIDE CR 10 MEQ [...] nightly for cholesterol LOVASTATIN 40 MG TABS 046704 LOVASTATIN Inactive CEFDINIR 300 MG ORAL CAPS take 1 cap po bid x 10 days CEFDINIR 300 MG ORAL CAPS 191870 CEFDINIR Inactive ACEBUTOLOL HCL 200 MG CAPS 1 cap in the morning and 2 caps in the evening ACEBUTOLOL HCL 200 MG CAPS 659689 ACEBUTOLOL HCL Inactive VENTOLIN HFA 108 (90 BASE) MCG/ACT AERS 2 -4 puffs four times a day PRN 2013 VENTOLIN HFA 108 (90 BASE) MCG/ACT AERS ALBUTEROL SULFATE Inactive AZITHROMYCIN 250 MG TABS 2 po qd x 1 day, then 1 po qd x 4 days AZITHROMYCIN 250 MG TABS 5517460 AZITHROMYCIN Inactive AZITHROMYCIN 250 MG TABS 2 po qd x 1 day, then 1 po qd x 4 days AZITHROMYCIN 250 MG TABS 3557425 AZITHROMYCIN Inactive PREDNISONE 20 MG TAB 2 po qd x 5 days PREDNISONE 20 MG TAB 931635 PREDNISONE Inactive Vital Signs Date Name Value [...] Panel - Chemistry sodium, serum 138 mmol/L 406-397 4756/09/24 potassium, serum 3.5 mmol/L 3.5-5.2 chloride, serum [...] [phone] Encounters Code Encounter Date Provider Facility CPT-04989 Level 3 Est. Patient 12:14:34 CDT Harinder Hernandez [facility] CPT-30798 Level 3 Est. Patient 13:47:15 CDT Harinder Hernandez [facility] CPT-57665 Level 3 Est. Patient 14:08:24 CDT Harinder Cr [facility] CPT-62080 Level 3 Est. Patient 10:07:15 CDT Harinder Hernandez [facility] CPT-53651 Level 3 Est. Patient 10:06:59 CDT Harinder Cr [facility] CPT-63537 Level 3 Est. Patient 15:53:29 CDT Jae Morgan MD [facility] CPT-67795 Level 3 Est. Patient 17:19:04 CDT Harinder Cr David [facility] CPT-87364 Level 3 Est. Patient 11:13:01 CDT Harinder Hernandez [facility] CPT-35737 Level 3 Est. Patient 09:03:58 CDT Harinder Hernandez [facility] CPT-02015 Level 3 Est. Patient 14:46:45 LOG RAFTER Harinder Hernandez [facility] CPT-87911 Level 3 Est. Patient 09:35:49 LOG RAFTER Harinder Cr David [facility] CPT-91702 Level 3 Est. Patient 09:29:37 LOG RAFTER Harinder Cr [facility] CPT-34109 Level 3 Est. Patient 15:51:07 CDT Harinder Hernandez [facility] CPT-80701 Level 3 Est. Patient 18:13:13 CDT Harinder Cr [facility] CPT-59088 Level 3 Est. Patient 10:44:19 CDT Harinder Hernandez [facility] CPT-80624 Level 4 Est. Patient 10:07:19 LOG RAFTER Harinder Cr [facility] CPT-52663 Level 3 Est. Patient 15:59:32 LOG RAFTER Harinder Cr [facility] Procedures Code Procedure Name Date Entry Date Standard Description CPT-93150 Immunization Each Additional Inj 17:38:04 CDT CPT-62955 Immunization Single Admin 17:38:04 CDT CPT-97919 Prevnar 13 17:38:04 CDT CPT-34860 Fluzone Quadrivalent preservative free (>=3yrs.) 17:38: 04 CDT CPT-65447 No Charge Offi Visit 11:14:03 CDT CPT-59591 Chest 2V Frontal and Lat 14:00:18 CDT CPT-OV Office Visit 16:10:28 CDT CPT-JTINJ Asp/Joint Injection 09:03:57 CDT CPT-Cryo Cryotherapy 09:35:49 LOG RAFTER CPT-JTINJ Asp/Joint Injection 09:34:45 LOG RAFTER CPT-J2930 Solu Medrol 125 mg (Methyl Prednisolone Sodium Succinate) 20:37:27 CDT CPT-64922 Abx/Therapy Injection 20:37:27 CDT CPT-17921 Port a cath flush 08:15:51 CDT CPT-59692 Port a cath flush 09:54:16 CDT CPT-08509 Port a cath flush 09:38:02 CDT CPT-05593 Port a cath flush 11:00:27 LOG RAFTER
--- OUTSIDE RECORDS SUMMARY | 2017-12-29 04:56 | XMS REPORT | Clinical Summary ---
Author Author Admin, QIE Organization [facility] Address Unknown Phone Unavailable Allergies, Adverse Reactions, [...] Screening for malignant neoplasm, colon V76.51 Resolved Harindre Hernandez DO Screening for malignant neoplasms of [...] RELEASE 12 HOUR 1 po BID THEOPHYLLINE [id number] Active Kortney Mccain Active POTASSIUM CHLORIDE ER 20 MEQ ORAL TABLET EXTENDED RELEASE 1 po q day POTASSIUM CHLORIDE 43666234433 Active Kortney Mccain Active POTASSIUM CHLORIDE 20 MEQ ORAL PACKET 1 tab po q day POTASSIUM CHLORIDE 18563594747 No Longer Active Kortney Mccain Active POTASSIUM CHLORIDE ER 10 MEQ ORAL CAPSULE EXTENDED RELEASE 1 capsule BID 2016 POTASSIUM CHLORIDE 85759448672 No Longer Active Kortney Mccain Active LASIX 20 MG ORAL TABLET 1 tablet by mouth every morning FUROSEMIDE 43769961161 No Longer Active Kortney Mccain Active SPIRONOLACTONE 25 MG ORAL TABLET 1 tablet by mouth daily SPIRONOLACTONE 60668203992 Active Kortney Mccain Active FLUOXETINE HCL 10 MG ORAL CAPSULE 1 po qd for depression/anxiety FLUOXETINE HCL 23698666108 Active Harinder Hernandez DO Active VOLTAREN 1 % TRANSDERMAL GEL apply q 6-8 hour to left arm as needed for pain DICLOFENAC SODIUM 98935441509 Active Kortney Mccain Active ALBUTEROL SULFATE (2.5 MG/3ML) 0.083% INHALATION NEBULIZATION SOLUTION 1 vial neb q 4hrs for severe asthma. 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 NIFEDIPINE 35956530690 Active Kortney Mccain Active AMLODIPINE BESYLATE 5 MG ORAL TABLET 1 tablet by mouth daily 2016 AMLODIPINE BESYLATE 66270047567 No Longer Active Harinder Hernandez DO Active TOPAMAX 25 MG ORAL TABLET 1 tab po BID TOPIRAMATE 21129084036 Active Kortney Mccain Active FLUTICASONE PROPIONATE 50 MCG/ACT NASAL SUSPENSION 2 sprays per nostril daily PRN Allergies FLUTICASONE PROPIONATE 73407028459 Active Kortney Mccain Active NIFEDIPINE ER 30 MG ORAL TABLET EXTENDED RELEASE 24 HOUR 1 daily NIFEDIPINE 98917692138 No Longer Active Harinder Hernandez DO Active FLOVENT HFA 110 MCG/ACT INHALATION AEROSOL 2 puffs inhaled b.i.d. FLUTICASONE PROPIONATE HFA 80794102529 Active Harinder Hernandez DO Active EPIPEN 2-BRUNA 0.3 MG/0.3ML INJECTION SOLUTION AUTO-INJECTOR 1 INJ NEEDED EPINEPHRINE 81988279207 Active Kortney Mccain Active PREDNISONE 20 MG ORAL TABLET 1 tab twice daily for 3 day, then one daily for three days PREDNISONE 68784474274 No Longer Active Harinder Hernandez DO Active PREDNISONE 20 MG ORAL TABLET 1 tablet twice daily for 2 days, then 1 tablet once daily for 2 days PREDNISONE 73280107327 No Longer Active Harinder Hernandez DO Active ASMANEX 120 METERED DOSES 220 MCG/INH INHALATION AEROSOL POWDER BREATH ACTIVATED 2 puffs orally twice daily MOMETASONE FUROATE 30422813072 Active Jeri Sosa LPN Active TOPIRAMATE 25 MG ORAL TABLET 1 tab po BID TOPIRAMATE 78136896244 No Longer Active Nettie Newberry MAHENDRA Active AMLODIPINE BESYLATE 5 MG ORAL TABLET Take 1 tab po daily AMLODIPINE BESYLATE 61989904152 No Longer Active Nettie Newberry MAHENDRA Active MECLIZINE HCL 25 MG ORAL TABLET 1 tablet three times daily for 3 days, then 1/ 2 tab three times daily for 3 days. MECLIZINE HCL 81679991788 No Longer Active Nettie Newberry MAHENDRA Active AMITRIPTYLINE HCL 25 MG ORAL TABLET 1 q hs prn AMITRIPTYLINE HCL 70090178576 No Longer Active Nettie Newberry MAHENDRA Active DILAUDID 2 MG ORAL TABLET Take 1/2 tab po every 4 hours as needed for pain HYDROMORPHONE HCL 78000334699 No Longer Active Nettie Rohith MAHENDRA Active CLOPIDOGREL BISULFATE 75 MG ORAL TABLET 1 tab by mouth once daily CLOPIDOGREL BISULFATE 65961349170 Active Harinder Hernandez DO Active ATORVASTATIN CALCIUM 10 MG ORAL TABLET 1 at bedtime ATORVASTATIN CALCIUM 05681334464 Active Kortney Mccain Active LOVASTATIN 40 MG ORAL TABLET Take 1 tab po every hs LOVASTATIN 34442845436 No Longer Active Harinder Hernandez DO Active PREDNISONE 20 MG ORAL TABLET 2 tabs daily for 4 days, 1 tab daily for 4 days, 1/2 tab daily for 4 days PREDNISONE 10302657260 No Longer Active Harinder Hernandez DO Active LEVAQUIN 500 MG ORAL TABLET Take 1 tab po daily x 8 days LEVOFLOXACIN 02505651348 No Longer Active Harinder Hernandez DO Active VENTOLIN HFA 108 (90 Base) MCG/ACT INHALATION AEROSOL SOLUTION 2 -4 puffs four times a day PRN ALBUTEROL SULFATE 62567683378 No Longer Active Jeri Sosa LPN Active ACEBUTOLOL HCL 200 MG ORAL CAPSULE 1 cap in the morning and 2 caps in the evening ACEBUTOLOL HCL 43376432136 No Longer Active Harinder Hernandez DO Active CEFDINIR 300 MG ORAL CAPSULE take 1 cap po bid x 10 days CEFDINIR 80724328023 No Longer Active Harinder Hernandez DO Active LOVASTATIN 40 MG ORAL TABLET 1 pill by mouth nightly for cholesterol LOVASTATIN 18024937041 No Longer Active Nettie Newberry APRN Active NITROSTAT 0.4 MG SUBLINGUAL TABLET SUBLINGUAL 1 tab under tongueas needed for chest pain ( may take 3 total, 5 min apart, then call 911) NITROGLYCERIN 81222599711 No Longer Active Nettie Newberry APRN Active POTASSIUM CHLORIDE ER 10 MEQ ORAL CAPSULE EXTENDED RELEASE 1 capsule by mouth daily POTASSIUM CHLORIDE 67811080749 No Longer Active Nettie Newberry APRN Active TESSALON PERLES 100 MG ORAL CAPSULE 1 to 2 tablets by mouth 3 times daily as needed for cough BENZONATATE 95241196900 No Longer Active Nettie Newberry APRN Active PREDNISONE 20 MG ORAL TABLET 2 po qd x 5 days PREDNISONE 13435162846 No Longer Active Jae Morgan MD Active AZITHROMYCIN 250 MG ORAL TABLET 2 po qd x 1 day, then 1 po qd x 4 days 12/30 AZITHROMYCIN 51262629584 No Longer Active Jae Morgan MD Active PREDNISONE 20 MG ORAL TABLET 1 tab twice daily for 3 day, then one daily for three days PREDNISONE 23294549730 No Longer Active Jae Morgan MD Active SINGULAIR 10 MG ORAL TABLET 1 pill by mouth every evening for breathing. 2014 MONTELUKAST SODIUM 01433326528 Active Kortney Mccain Active TYLENOL 325 MG ORAL TABLET 3 by mouth q4h as needed ACETAMINOPHEN 67859712628 Active Harinder Hernandez DO Active POTASSIUM CHLORIDE ER 10 MEQ ORAL TABLET EXTENDED RELEASE take 1 tab po daily POTASSIUM CHLORIDE 74610442610 No Longer Active Harinder Hernandez DO Active PREDNISONE 20 MG ORAL TABLET 1 TID x 2 days, then 1 BID x 3 days, then 1 Daily x 3 days, then stop PREDNISONE 05202660729 No Longer Active Jillkvng Frashai BRICEÑON Active LEVAQUIN 500 MG ORAL TABLET 1 tablet by mouth daily LEVOFLOXACIN 61271237438 No Longer Active Jillina Frazell MEAT SELECTOR Active NEURONTIN 300 MG ORAL CAPSULE 1 cap by mouth three times daily for restless leg GABAPENTIN 42028509650 No Longer Active Harinder Hernandez DO Active BENZONATATE 100 MG ORAL CAPSULE 1 cap po TID PRN BENZONATATE 24623394924 No Longer Active Harinder Hernandez DO Active MONTELUKAST SODIUM 10 MG ORAL TABLET 1 tab po in the evening 2014 MONTELUKAST SODIUM 70456284713 No Longer Active Harinder Hernandez DO Active MUPIROCIN 2 % EXTERNAL OINTMENT apply to affected area BID x 14 days MUPIROCIN 92766736029 No Longer Active Harinder Hernandez DO Active TYLENOL EXTRA STRENGTH 500 MG ORAL TABLET as needed ACETAMINOPHEN 30886847577 No Longer Active Harinder Hernandez DO Active PREDNISONE 10 MG ORAL TABLET 1 tab po daily PREDNISONE 28909133595 No Longer Active Harinder Hernandez DO Active PREDNISONE 20 MG ORAL TABLET 2 tabs daily for 4 days, 1 tab daily for 4 days, 1/2 tab daily for 4 days PREDNISONE 59588127181 No Longer Active Harinder Hernandez DO Active AZITHROMYCIN 250 MG ORAL TABLET 2 po qd x 1 day, then 1 po qd x 4 days 04/06 AZITHROMYCIN 12967515803 No Longer Active Harinder Hernandez DO Active PREDNISONE 20 MG ORAL TABLET 3 tabs today, then 1 tab twice daily for 3 day, then one daily for three days PREDNISONE 78090935428 No Longer Active Harinder Hernandez DO Active NIFEDIAC CC 30 MG ORAL TABLET EXTENDED RELEASE 24 HOUR 1 tablet daily for raynaud's syndrome NIFEDIPINE 39350810606 No Longer Active Tawnya Pardo MA Active AMBIEN 10 MG ORAL TABLET 1/2 tab by mouth at bedtime as needed for sleep 2013 ZOLPIDEM TARTRATE 93076994628 Active Kortney Mccain Active CLONAZEPAM 1 MG ORAL TABLET 1 tablet at bedtime for insomnia and restless legs CLONAZEPAM 19588212927 Active Harinder Hernandez DO Active CLONAZEPAM 0.5 MG ORAL TABLET 1 tab po daily CLONAZEPAM 14962405411 No Longer Active Harinder Hernandez DO Active PREDNISONE 10 MG ORAL TABLET 1 tablet daily for COPD PREDNISONE 52804611011 Active Kortney Mccain Active PROAIR HFA 108 (90 Base) MCG/ACT INHALATION AEROSOL SOLUTION 2 puffs four times a day as needed ALBUTEROL SULFATE 59992129533 Active Harinder Hernandez DO Active FLOVENT HFA 110 MCG/ACT INHALATION AEROSOL 2 puffs inhaled b.i.d. FLUTICASONE PROPIONATE HFA 00790303136 Active Kortney Mccain Active ACIPHEX 20 MG ORAL TABLET DELAYED RELEASE 1 tab po daily RABEPRAZOLE SODIUM 72304823619 Active Kaylah Newberry Active CLONAZEPAM 0.5 MG ORAL TABLET 1 tab po daily CLONAZEPAM 0.5 MG ORAL TABLET 788409 CLONAZEPAM Inactive PREDNISONE 20 MG ORAL TABLET 3 tabs today, then 1 tab twice daily for 3 day, then one daily for three days PREDNISONE 20 MG ORAL TABLET 823279 PREDNISONE Inactive PREDNISONE 20 MG ORAL TABLET 2 tabs daily for 4 days, 1 tab daily for 4 days, 1/2 tab daily for 4 days PREDNISONE 20 MG ORAL TABLET 010938 PREDNISONE Inactive PREDNISONE 10 MG ORAL TABLET 1 tab po daily PREDNISONE 10 MG ORAL TABLET 473058 PREDNISONE Inactive TYLENOL EXTRA STRENGTH 500 MG ORAL TABLET as needed TYLENOL EXTRA STRENGTH 500 MG ORAL TABLET 670951 ACETAMINOPHEN Inactive MUPIROCIN 2 % EXTERNAL OINTMENT apply to affected area BID x 14 days MUPIROCIN 2 % EXTERNAL OINTMENT 714494 MUPIROCIN Inactive MONTELUKAST SODIUM 10 MG ORAL TABLET 1 tab po in the evening 2014 MONTELUKAST SODIUM 10 MG ORAL TABLET 20010818 MONTELUKAST SODIUM Inactive BENZONATATE 100 MG ORAL CAPSULE 1 cap po TID PRN BENZONATATE 100 MG ORAL CAPSULE 669383 BENZONATATE Inactive NEURONTIN 300 MG ORAL CAPSULE 1 cap by mouth three times daily for restless leg NEURONTIN 300 MG ORAL CAPSULE 890813 GABAPENTIN Inactive LEVAQUIN 500 MG ORAL TABLET 1 tablet by mouth daily LEVAQUIN 500 MG ORAL TABLET 014074 LEVOFLOXACIN Inactive PREDNISONE 20 MG ORAL TABLET 1 TID x 2 days, then 1 BID x 3 days, then 1 Daily x 3 days, then stop PREDNISONE 20 MG ORAL TABLET 316993 PREDNISONE Inactive POTASSIUM CHLORIDE ER 10 MEQ ORAL TABLET EXTENDED RELEASE take 1 tab po daily POTASSIUM CHLORIDE ER 10 MEQ ORAL TABLET EXTENDED RELEASE POTASSIUM CHLORIDE Inactive PREDNISONE 20 MG ORAL TABLET 1 tab twice daily for 3 day, then one daily for three days PREDNISONE 20 MG ORAL TABLET 982800 PREDNISONE Inactive TESSALON PERLES 100 MG ORAL CAPSULE 1 to 2 tablets by mouth 3 times daily as needed for cough TESSALON PERLES 100 MG ORAL CAPSULE 729092 BENZONATATE Inactive POTASSIUM CHLORIDE ER 10 MEQ ORAL CAPSULE EXTENDED RELEASE 1 capsule by mouth daily POTASSIUM CHLORIDE ER 10 MEQ ORAL CAPSULE EXTENDED RELEASE POTASSIUM CHLORIDE Inactive NITROSTAT 0.4 MG SUBLINGUAL TABLET SUBLINGUAL 1 tab under tongueas needed for chest pain ( may take 3 total, 5 min apart, then call 911) NITROSTAT 0.4 MG SUBLINGUAL TABLET SUBLINGUAL 607855 NITROGLYCERIN Inactive LOVASTATIN 40 MG ORAL TABLET 1 pill by mouth nightly for cholesterol LOVASTATIN 40 MG ORAL TABLET 986051 LOVASTATIN Inactive CEFDINIR 300 MG ORAL CAPSULE take 1 cap po bid x 10 days CEFDINIR 300 MG ORAL CAPSULE 505021 CEFDINIR Inactive ACEBUTOLOL HCL 200 MG ORAL CAPSULE 1 cap in the morning and 2 caps in the evening ACEBUTOLOL HCL 200 MG ORAL CAPSULE 871592 ACEBUTOLOL HCL Inactive VENTOLIN HFA 108 (90 Base) MCG/ACT INHALATION AEROSOL SOLUTION 2 -4 puffs four times a day PRN VENTOLIN HFA 108 (90 Base) MCG/ ACT INHALATION AEROSOL SOLUTION ALBUTEROL SULFATE Inactive LEVAQUIN 500 MG ORAL TABLET Take 1 tab po daily x 8 days LEVAQUIN 500 MG ORAL TABLET 154468 LEVOFLOXACIN Inactive PREDNISONE 20 MG ORAL TABLET 2 tabs daily for 4 days, 1 tab daily for 4 days, 1/2 tab daily for 4 days PREDNISONE 20 MG ORAL TABLET 861008 PREDNISONE Inactive LOVASTATIN 40 MG ORAL TABLET Take 1 tab po every hs LOVASTATIN 40 MG ORAL TABLET 030808 LOVASTATIN Inactive DILAUDID 2 MG ORAL TABLET Take 1/2 tab po every 4 hours as needed for pain DILAUDID 2 MG ORAL TABLET 326834 HYDROMORPHONE HCL Inactive AMITRIPTYLINE HCL 25 MG ORAL TABLET 1 q hs prn AMITRIPTYLINE HCL 25 MG ORAL TABLET 928271 AMITRIPTYLINE HCL Inactive MECLIZINE HCL 25 MG ORAL TABLET 1 tablet three times daily for 3 days, then 1/ 2 tab three times daily for 3 days. MECLIZINE HCL 25 MG ORAL TABLET 349504 MECLIZINE HCL Inactive AMLODIPINE BESYLATE 5 MG ORAL TABLET Take 1 tab po daily AMLODIPINE BESYLATE 5 MG ORAL TABLET 051794 AMLODIPINE BESYLATE Inactive TOPIRAMATE 25 MG ORAL TABLET 1 tab po BID TOPIRAMATE 25 MG ORAL TABLET 979442 TOPIRAMATE Inactive PREDNISONE 20 MG ORAL TABLET 1 tablet twice daily for 2 days, then 1 tablet once daily for 2 days PREDNISONE 20 MG ORAL TABLET 196905 PREDNISONE Inactive PREDNISONE 20 MG ORAL TABLET 1 tab twice daily for 3 day, then one daily for three days PREDNISONE 20 MG ORAL TABLET 248435 PREDNISONE Inactive NIFEDIPINE ER 30 MG ORAL TABLET EXTENDED RELEASE 24 HOUR 1 daily NIFEDIPINE ER 30 MG ORAL TABLET EXTENDED RELEASE 24 HOUR NIFEDIPINE Inactive AMLODIPINE BESYLATE 5 MG ORAL TABLET 1 tablet by mouth daily 2016 AMLODIPINE BESYLATE 5 MG ORAL TABLET 447166 AMLODIPINE BESYLATE Inactive LASIX 20 MG ORAL TABLET 1 tablet by mouth every morning LASIX 20 MG ORAL TABLET 156208 FUROSEMIDE Inactive POTASSIUM CHLORIDE ER 10 MEQ ORAL CAPSULE EXTENDED RELEASE 1 capsule BID 2016 POTASSIUM CHLORIDE ER 10 MEQ ORAL CAPSULE EXTENDED RELEASE POTASSIUM CHLORIDE Inactive POTASSIUM CHLORIDE 20 MEQ ORAL PACKET 1 tab po q day POTASSIUM CHLORIDE 20 MEQ ORAL PACKET 7867128 POTASSIUM CHLORIDE Inactive AZITHROMYCIN 250 MG ORAL TABLET 2 po qd x 1 day, then 1 po qd x 4 days 04/06 AZITHROMYCIN 250 MG ORAL TABLET 714829 AZITHROMYCIN Inactive AZITHROMYCIN 250 MG ORAL TABLET 2 po qd x 1 day, then 1 po qd x 4 days 12/30 AZITHROMYCIN 250 MG ORAL TABLET 024442 AZITHROMYCIN Inactive PREDNISONE 20 MG ORAL TABLET 2 po qd x 5 days PREDNISONE 20 MG ORAL TABLET 073586 PREDNISONE Inactive Vital Signs Date Name Value [...] Panel - Chemistry sodium, serum 137 mmol/L 768-435 2470/01/03 potassium, serum 3.4 mmol/L 3.5-5.2 chloride, serum 102 mmol/L 98-107 carbon dioxide, venous blood 29.2 mmol/L 21.0-32.0 blood glucose 87 mg/dL 65-110 calcium, serum 8.5 mg/dL 8.5-10.1 urea nitrogen, blood 8 mg/dL 7-18 creatinine, serum 0.82 mg/dL 0.55-1.30 sodium, serum 140 mmol/L 668-784 0425/07/13 potassium, serum 3.2 mmol/L 3.5-5.2 chloride, serum 103 mmol/L 98-107 carbon dioxide, venous blood 26.9 mmol/L 21.0-32.0 blood glucose 93 mg/dL 65-110 calcium, serum 9.2 mg/dL 8.5-10.1 urea nitrogen, blood 13 mg/dL 7-18 creatinine, serum 0.84 mg/dL 0.60-1.30 sodium, serum 140 mmol/L 664-190 7346/08/21 potassium, serum 3.8 mmol/L 3.5-5.2 chloride, serum [...] ... - Chemistry sodium, serum 141 mmol/L 193-880 7562/08/07 carbon dioxide, venous blood 34.0 mmol/L 21.0-32.0 [...] 1.40 mg/dL 0.00-1.00 cholesterol, serum 192 mg/dL 100-933 6090/10/19 triglyceride, serum, fasting 71 mg/dL 30-200 HDL cholesterol, serum 72 mg/dL 32-60 LDL cholesterol, serum 106 mg/dL 0-130 Lab Report: THEOPHYLLINE - Toxicology theophylline level, serum 3.1 ug/mL 10.0-20.0 Encounters Code Encounter Date Provider Facility CPT-97551 Level 4 Est. Patient 14:45:25 CDT Harinder Cr [facility] CPT-96169 Level 4 Est. Patient 09:15:13 CDT Harinder Cr [facility] CPT-76740 Level 3 Est. Patient 11:51:58 CDT Harinder W David [facility] CPT-96584 Level 3 Est. Patient 11:30:05 CDT Harinder Hernandez [facility] CPT-55792 Level 4 Est. Patient 10:19:23 CDT Harinder Hernandez [facility] CPT-18914 Level 3 Est. Patient 09:58:58 CDT Harinder Cr [facility] CPT-40239 Level 3 Est. Patient 12:37:21 CDT Harinder Hernandez [facility] CPT-77823 Level 3 Est. Patient 18:37:17 CDT Harinder Cr [facility] CPT-27277 Level 4 Est. Patient 11:15:54 CDT Nettie King MAHENDRA [facility] CPT-75406 Level 3 Est. Patient 16:42:24 CDT Harinder Cr [facility] CPT-23607 Level 3 Est. Patient 15:03:36 CDT Harinder Hernandez [facility] CPT-86224 Level 3 Est. Patient 15:03:20 CDT Harinder Cr [facility] CPT-23200 Level 3 Est. Patient 12:14:34 CDT Harinder Hernandez [facility] CPT-98700 Level 3 Est. Patient 13:47:15 CDT Harinder Cr [facility] CPT-99096 Level 3 Est. Patient 14:08:24 CDT Harinder Hernandez [facility] CPT-39394 Level 3 Est. Patient 10:07:15 CDT Harinder Cr [facility] CPT-44181 Level 3 Est. Patient 10:06:59 CDT Harinder Cr [facility] CPT-96147 Level 3 Est. Patient 15:53:29 CDT Jae Morgan [facility] CPT-93358 Level 3 Est. Patient 17:19:04 CDT Harinder W David [facility] CPT-99131 Level 3 Est. Patient 11:13:01 CDT Harinder Hernandez [facility] CPT-36969 Level 3 Est. Patient 09:03:58 CDT Harinder Hernandez [facility] CPT-88389 Level 3 Est. Patient 14:46:45 PSYCHOSOCIAL REHABILITATION COUNSELOR Harinder Hernandez [facility] CPT-82786 Level 3 Est. Patient 09:35:49 PSYCHOSOCIAL REHABILITATION COUNSELOR Harinder Hernandez [facility] CPT-45108 Level 3 Est. Patient 09:29:37 PSYCHOSOCIAL REHABILITATION COUNSELOR Harinder Hernandez [facility] CPT-17641 Level 3 Est. Patient 15:51:07 CDT Harinder Hernandez [facility] CPT-84816 Level 3 Est. Patient 18:13:13 CDT Harinder Hernandez [facility] CPT-71065 Level 3 Est. Patient 10:44:19 CDT Harinder Hernandez [facility] CPT-55517 Level 4 Est. Patient 10:07:19 PSYCHOSOCIAL REHABILITATION COUNSELOR Harinder Hernandez [facility] CPT-42472 Level 3 Est. Patient 15:59:32 PSYCHOSOCIAL REHABILITATION COUNSELOR Harinder Cr [facility] Procedures Code Procedure Name Date Entry Date Standard Description CPT-16907 Abd compl w upright - XRAY USE ONLY 14:48:09 CDT 02/18 CPT-37801 Port a cath flush 13:46:05 CDT CPT-71976 Hip, complete, 2-3 views - XRAY USE ONLY 10:28:40 CDT CPT-81802 BMP - LAB USE ONLY 16:45:09 PSYCHOSOCIAL REHABILITATION COUNSELOR CPT-33690 Port a cath flush 12:00:13 PSYCHOSOCIAL REHABILITATION COUNSELOR CPT-TCMM Transitional Care Mgmt-Moderate 11:20:16 PSYCHOSOCIAL REHABILITATION COUNSELOR CPT-37182 First Vx - Ix admin for Medicare patients 17:35:15 CDT CPT-28024 Fluzone Preservative Free Intramuscular Suspension 17:35 :15 CDT CPT-82833 Microalbumin - LAB USE ONLY 11:52:05 CDT CPT-TCMM Transitional Care Mgmt-Moderate 11:33:57 CDT CPT-70515 No Charge Offi Visit 14:11:29 CDT CPT-91191 Magnesium - LAB USE ONLY 10:45:44 CDT CPT-30780 Lipid - LAB USE ONLY 10:45:44 CDT CPT-71343 CBC - LAB USE ONLY 10:45:44 CDT CPT-90473 Venipuncture Draw Fee 10:45:43 CDT CPT-22689 Venipuncture Draw Fee 18:21:27 CDT CPT-JTINJ Asp/Joint Injection 18:38:04 CDT CPT-43429 Immunization Each Additional Inj 17:38:04 CDT CPT-92284 Immunization Single Admin 17:38:04 CDT CPT-89320 Prevnar 13 17:38:04 CDT CPT-02436 Fluzone Quadrivalent preservative free (>=3yrs.) 17:38: 04 CDT CPT-28388 No Charge Offi Visit 11:14:03 CDT CPT-13966 Chest 2V Frontal and Lat 14:00:18 CDT CPT-OV Office Visit 16:10:28 CDT CPT-JTINJ Asp/Joint Injection 09:03:57 CDT CPT-Cryo Cryotherapy 09:35:49 PSYCHOSOCIAL REHABILITATION COUNSELOR CPT-JTINJ Asp/Joint Injection 09:34:45 PSYCHOSOCIAL REHABILITATION COUNSELOR CPT-J2930 Solu Medrol 125 mg (Methyl Prednisolone Sodium Succinate) 20:37:27 CDT CPT-33735 Abx/Therapy Injection 20:37:27 CDT CPT-44133 Port a cath flush 08:15:51 CDT CPT-88936 Port a cath flush 09:54:16 CDT CPT-70602 Port a cath flush 09:38:02 CDT CPT-73500 Port a cath flush 11:00:27 PSYCHOSOCIAL REHABILITATION COUNSELOR
--- OUTSIDE RECORDS SUMMARY | 2017-12-29 04:58 | XMS REPORT | Clinical Summary ---
Author Author Admin, QIE Organization [facility] Address Unknown Phone Unavailable Allergies, [...] per nostril daily PRN Allergies FLUTICASONE PROPIONATE [id number] Active Kortney Mccain Active ALBUTEROL SULFATE 0.083 % NEBU SOLN 1 vial neb q 4hrs PRN Wheezing Dx: J44.1 ALBUTEROL SULFATE 18407151710 Active Kortney Mccain Active AMLODIPINE BESYLATE 5 MG TABS 1 tablet by mouth daily AMLODIPINE BESYLATE 56695117438 Active Harinder Hernandez DO Active NIFEDIPINE ER 30 MG ORAL [id number] 1 daily NIFEDIPINE 22115069445 No Longer Active Harinder Hernandez DO Active POTASSIUM CHLORIDE 20 MEQ ORAL PACK Take 1 tablet by mouth daily POTASSIUM CHLORIDE 96877783648 Active Ciera Pimentel Active FLOVENT HFA 110 MCG/ACT AERO 2 puffs inhaled b.i.d. FLUTICASONE PROPIONATE HFA 14024012277 Active Harinder Hernandez DO Active POTASSIUM CHLORIDE CR 10 MEQ CPCR 1 capsule by mouth daily POTASSIUM CHLORIDE 13357069378 Active Harinder Hernandez DO Active EPIPEN 2-BRUNA 0.3 MG/0.3ML INJ SOAJ 1 INJ NEEDED EPINEPHRINE 73304103961 Active Harinder Hernandez DO Active PREDNISONE 20 MG TAB 1 tab twice daily for 3 day, then one daily for three days PREDNISONE 29325123735 No Longer Active Harinder Hernandez DO Active PREDNISONE 20 MG TAB 1 tablet twice daily for 2 days, then 1 tablet once daily for 2 days PREDNISONE 10947184506 No Longer Active Harinder Hernandez DO Active ASMANEX 120 METERED DOSES 220 MCG/INH INH AEPB 2 puffs orally twice daily MOMETASONE FUROATE 92950524910 Active Jeri Sosa RPT,RMA Active TOPIRAMATE 25 MG TABS 1 tab po BID TOPIRAMATE 59213002933 No Longer Active Nettie Newberry APRN Active AMLODIPINE BESYLATE 5 MG ORAL TABS Take 1 tab po daily AMLODIPINE BESYLATE 33234045185 No Longer Active Nettie Newberry APRN Active MECLIZINE HCL 25 MG TAB 1 tablet three times daily for 3 days, then 1/2 tab three times daily for 3 days. MECLIZINE HCL 43648635926 No Longer Active Nettie Newberry APRN Active AMITRIPTYLINE HCL 25 MG ORAL TABS 1 q hs prn AMITRIPTYLINE HCL 38875682339 No Longer Active Nettie Newberry APRN Active DILAUDID 2 MG ORAL TABS Take 1/2 tab po every 4 hours as needed for pain 2014 HYDROMORPHONE HCL 08550384915 No Longer Active Nettie Newberry MAHENDRA Active CLOPIDOGREL BISULFATE 75 MG ORAL TABS 1 tab by mouth once daily CLOPIDOGREL BISULFATE 92454553803 Active Harinder Hernandez DO Active ATORVASTATIN CALCIUM 10 MG ORAL TABS 1 at bedtime ATORVASTATIN CALCIUM 04210799966 Active Tawnya Pardo MA Active LOVASTATIN 40 MG ORAL TABS Take 1 tab po every hs LOVASTATIN 81155591400 No Longer Active Harinder Hernandez DO Active PREDNISONE 20 MG TAB 2 tabs daily for 4 days, 1 tab daily for 4 days, 1/2 tab daily for 4 days PREDNISONE 81533866322 No Longer Active Harinder Hernandez DO Active LEVAQUIN 500 MG ORAL TABS Take 1 tab po daily x 8 days LEVOFLOXACIN 57681844050 No Longer Active Harinder Hernandez DO Active VENTOLIN HFA 108 (90 BASE) MCG/ACT AERS 2 -4 puffs four times a day PRN 2013 ALBUTEROL SULFATE 18282973473 No Longer Active Jrei Sosa RPT,RMA Active ACEBUTOLOL HCL 200 MG CAPS 1 cap in the morning and 2 caps in the evening ACEBUTOLOL HCL 54840625429 No Longer Active Harinder Hernandez DO Active CEFDINIR 300 MG ORAL CAPS take 1 cap po bid x 10 days CEFDINIR 12771770928 No Longer Active Harinder Hernandez DO Active LOVASTATIN 40 MG TABS 1 pill by mouth nightly for cholesterol LOVASTATIN 24462690414 No Longer Active Nettie Newberry APRN Active NITROSTAT 0.4 MG SUBL 1 tab under tongueas needed for chest pain ( may take 3 total, 5 min apart, then call 911) NITROGLYCERIN 57152776565 No Longer Active Nettie Newberry APRN Active POTASSIUM CHLORIDE CR 10 MEQ CPCR 1 capsule by mouth daily 02/14 POTASSIUM CHLORIDE 81564429339 No Longer Active Nettie Newberry APRN Active TESSALON PERLES 100 MG CAP 1 to 2 tablets by mouth 3 times daily as needed for cough BENZONATATE 31629180237 No Longer Active Nettie Newberry APRN Active THEOPHYLLINE ER 200 MG ORAL DU10O-SUY Take 1 tab every 12 hours THEOPHYLLINE 48765965595 Active Tawnya Pardo MA Active PREDNISONE 20 MG TAB 2 po qd x 5 days PREDNISONE 04964874749 No Longer Active Jae Morgan MD Active AZITHROMYCIN 250 MG TABS 2 po qd x 1 day, then 1 po qd x 4 days AZITHROMYCIN 28440521592 No Longer Active Jae Morgan MD Active PREDNISONE 20 MG TAB 1 tab twice daily for 3 day, then one daily for three days PREDNISONE 60267140369 No Longer Active Jae Morgan MD Active SINGULAIR 10 MG TABS 1 pill by mouth every evening for breathing. MONTELUKAST SODIUM 17257690253 Active Tawnya Pardo MA Active TYLENOL 325 MG TAB 3 by mouth q4h as needed ACETAMINOPHEN 43858191577 Active Harinder Hernandez DO Active POTASSIUM CHLORIDE ER 10 MEQ CR-TABS take 1 tab po daily POTASSIUM CHLORIDE 87854324817 No Longer Active Harinder Hernandez DO Active PREDNISONE 20 MG TAB 1 TID x 2 days, then 1 BID x 3 days, then 1 Daily x 3 days, then stop PREDNISONE 69549091984 No Longer Active Jillina Frazellor BRICEÑON Active LEVAQUIN 500 MG TAB 1 tablet by mouth daily LEVOFLOXACIN 45295409950 No Longer Active Jillina Frazell [employer] Active NEURONTIN 300 MG CAP 1 cap by mouth three times daily for restless leg 06/22 GABAPENTIN 83440294177 No Longer Active Harinder Hernandez DO Active BENZONATATE 100 MG CAPS 1 cap po TID PRN BENZONATATE 42173056933 No Longer Active Harinder Hernandez DO Active MONTELUKAST SODIUM 10 MG TABS 1 tab po in the evening MONTELUKAST SODIUM 95012726446 No Longer Active Harinder Hernandez DO Active MUPIROCIN 2 % OINT apply to affected area BID x 14 days MUPIROCIN 41843136488 No Longer Active Harinder Hernandez DO Active TYLENOL EXTRA STRENGTH 500 MG TABS as needed ACETAMINOPHEN 62550856059 No Longer Active Harinder Hernandez DO Active PREDNISONE 10 MG TABS 1 tab po daily PREDNISONE 20170589088 No Longer Active Harinder Hernandez DO Active PREDNISONE 20 MG TAB 2 tabs daily for 4 days, 1 tab daily for 4 days, 1/2 tab daily for 4 days PREDNISONE 12266857122 No Longer Active Harinder Hernandez DO Active AZITHROMYCIN 250 MG TABS 2 po qd x 1 day, then 1 po qd x 4 days AZITHROMYCIN 43337225427 No Longer Active Harinder Hernandez DO Active PREDNISONE 20 MG TAB 3 tabs today, then 1 tab twice daily for 3 day, then one daily for three days PREDNISONE 27703785185 No Longer Active Harinder Hernandez DO Active NIFEDIAC CC 30 MG IQ60O-BTH 1 tablet daily for raynaud's syndrome NIFEDIPINE 89398512973 No Longer Active Tawnya Pardo MA Active AMBIEN 10 MG TAB 1/2 tab by mouth at bedtime as needed for sleep ZOLPIDEM TARTRATE 94423831382 Active Kortney Mccain Active CLONAZEPAM 1 MG TABS 1 tablet at bedtime for insomnia and restless legs 09/14 CLONAZEPAM 40232904411 Active Harinder Hernandez DO Active CLONAZEPAM 0.5 MG TABS 1 tab po daily CLONAZEPAM 93282249485 No Longer Active Harinder Hernandez DO Active PREDNISONE 10 MG TAB 1 tablet daily for COPD PREDNISONE 95272305402 Active Ciera Pimentel Active PROAIR HFA 108 (90 BASE) MCG/ACT AERS 2 puffs four times a day as needed 2012 ALBUTEROL SULFATE 55721112978 Active Harinder Hernandez DO Active FLOVENT HFA 110 MCG/ACT AERO 2 puffs inhaled b.i.d. FLUTICASONE PROPIONATE HFA 66426167852 Active Kortney Mccain Active ACIPHEX 20 MG TBEC 1 tab po daily RABEPRAZOLE SODIUM 40969242034 Active Kaylah Newberry Active CLONAZEPAM 0.5 MG TABS 1 tab po daily CLONAZEPAM 0.5 MG TABS 297352 CLONAZEPAM Inactive PREDNISONE 20 MG TAB 3 tabs today, then 1 tab twice daily for 3 day, then one daily for three days PREDNISONE 20 MG TAB 400176 PREDNISONE Inactive PREDNISONE 20 MG TAB 2 tabs daily for 4 days, 1 tab daily for 4 days, 1/2 tab daily for 4 days PREDNISONE 20 MG TAB 479352 PREDNISONE Inactive PREDNISONE 10 MG TABS 1 tab po daily PREDNISONE 10 MG TABS 810697 PREDNISONE Inactive TYLENOL EXTRA STRENGTH 500 MG TABS as needed TYLENOL EXTRA STRENGTH 500 MG TABS 757524 ACETAMINOPHEN Inactive MUPIROCIN 2 % OINT apply to affected area BID x 14 days MUPIROCIN 2 % OINT 702983 MUPIROCIN Inactive MONTELUKAST SODIUM 10 MG TABS 1 tab po in the evening MONTELUKAST SODIUM 10 MG TABS 20010818 MONTELUKAST SODIUM Inactive BENZONATATE 100 MG CAPS 1 cap po TID PRN BENZONATATE 100 MG CAPS 273640 BENZONATATE Inactive NEURONTIN 300 MG CAP 1 cap by mouth three times daily for restless leg 06/22 NEURONTIN 300 MG CAP 145186 GABAPENTIN Inactive LEVAQUIN 500 MG TAB 1 tablet by mouth daily LEVAQUIN 500 MG TAB 508518 LEVOFLOXACIN Inactive PREDNISONE 20 MG TAB 1 TID x 2 days, then 1 BID x 3 days, then 1 Daily x 3 days, then stop PREDNISONE 20 MG TAB 193345 PREDNISONE Inactive POTASSIUM CHLORIDE ER 10 MEQ CR-TABS take 1 tab po daily POTASSIUM CHLORIDE ER 10 MEQ CR-TABS POTASSIUM CHLORIDE Inactive PREDNISONE 20 MG TAB 1 tab twice daily for 3 day, then one daily for three days PREDNISONE 20 MG TAB 236052 PREDNISONE Inactive TESSALON PERLES 100 MG CAP 1 to 2 tablets by mouth 3 times daily as needed for cough TESSALON PERLES 100 MG CAP 795985 BENZONATATE Inactive POTASSIUM CHLORIDE CR 10 MEQ CPCR 1 capsule by mouth daily 02/14 POTASSIUM CHLORIDE CR 10 MEQ CPCR POTASSIUM CHLORIDE Inactive NITROSTAT 0.4 MG SUBL 1 tab under tongueas needed for chest pain ( may take 3 total, 5 min apart, then call 911) NITROSTAT 0.4 MG SUBL 688777 NITROGLYCERIN Inactive LOVASTATIN 40 MG TABS 1 pill by mouth nightly for cholesterol LOVASTATIN 40 MG TABS 298441 LOVASTATIN Inactive CEFDINIR 300 MG ORAL CAPS take 1 cap po bid x 10 days CEFDINIR 300 MG ORAL CAPS 269396 CEFDINIR Inactive ACEBUTOLOL HCL 200 MG CAPS 1 cap in the morning and 2 caps in the evening ACEBUTOLOL HCL 200 MG CAPS 653911 ACEBUTOLOL HCL Inactive VENTOLIN HFA 108 (90 BASE) MCG/ACT AERS 2 -4 puffs four times a day PRN 2013 VENTOLIN HFA 108 (90 BASE) MCG/ACT AERS ALBUTEROL SULFATE Inactive LEVAQUIN 500 MG ORAL TABS Take 1 tab po daily x 8 days LEVAQUIN 500 MG ORAL TABS 357552 LEVOFLOXACIN Inactive PREDNISONE 20 MG TAB 2 tabs daily for 4 days, 1 tab daily for 4 days, 1/2 tab daily for 4 days PREDNISONE 20 MG TAB 285016 PREDNISONE Inactive LOVASTATIN 40 MG ORAL TABS Take 1 tab po every hs LOVASTATIN 40 MG ORAL TABS 801319 LOVASTATIN Inactive DILAUDID 2 MG ORAL TABS Take 1/2 tab po every 4 hours as needed for pain 2014 DILAUDID 2 MG ORAL TABS 432579 HYDROMORPHONE HCL Inactive AMITRIPTYLINE HCL 25 MG ORAL TABS 1 q hs prn AMITRIPTYLINE HCL 25 MG ORAL TABS 491145 AMITRIPTYLINE HCL Inactive MECLIZINE HCL 25 MG TAB 1 tablet three times daily for 3 days, then 1/2 tab three times daily for 3 days. MECLIZINE HCL 25 MG TAB 605318 MECLIZINE HCL Inactive AMLODIPINE BESYLATE 5 MG ORAL TABS Take 1 tab po daily AMLODIPINE BESYLATE 5 MG ORAL TABS 834575 AMLODIPINE BESYLATE Inactive TOPIRAMATE 25 MG TABS 1 tab po BID TOPIRAMATE 25 MG TABS 789827 TOPIRAMATE Inactive PREDNISONE 20 MG TAB 1 tablet twice daily for 2 days, then 1 tablet once daily for 2 days PREDNISONE 20 MG TAB 513632 PREDNISONE Inactive PREDNISONE 20 MG TAB 1 tab twice daily for 3 day, then one daily for three days PREDNISONE 20 MG TAB 365366 PREDNISONE Inactive NIFEDIPINE ER 30 MG ORAL [id number] 1 daily NIFEDIPINE ER 30 MG ORAL [id number] NIFEDIPINE Inactive AZITHROMYCIN 250 MG TABS 2 po qd x 1 day, then 1 po qd x 4 days AZITHROMYCIN 250 MG TABS 1407035 AZITHROMYCIN Inactive AZITHROMYCIN 250 MG TABS 2 po qd x 1 day, then 1 po qd x 4 days AZITHROMYCIN 250 MG TABS 4551626 AZITHROMYCIN Inactive PREDNISONE 20 MG TAB 2 po qd x 5 days PREDNISONE 20 MG TAB 857206 PREDNISONE Inactive Vital Signs Date Name Value [...] Panel - Chemistry sodium, serum 137 mmol/L 085-668 1428/01/03 potassium, serum 3.4 mmol/L 3.5-5.2 chloride, serum [...] Magnesium - Chemistry cholesterol, serum 180 mg/dL 018-352 4906/08/08 triglyceride, serum, fasting 92 mg/dL 30-200 HDL cholesterol, serum 66 mg/dL 32-96 LDL cholesterol, serum 96 mg/dL 0-130 sodium, serum 142 mmol/L 821-395 8471/08/08 carbon dioxide, venous blood 27.4 mmol/L 21.0-32.0 [...] 10.0-20.0 Encounters Code Encounter Date Provider Facility CPT-57724 Level 3 Est. Patient 09:58:58 CDT Harinder Cr [facility] CPT-12182 Level 3 Est. Patient 12:37:21 CDT Harinder Cr [facility] CPT-90865 Level 3 Est. Patient 18:37:17 CDT Harinder Cr [facility] CPT-24826 Level 4 Est. Patient 11:15:54 CDT Nettie Rohith [facility] CPT-63790 Level 3 Est. Patient 16:42:24 CDT Harinder Shaye [facility] CPT-43722 Level 3 Est. Patient 15:03:36 CDT Harinder Shaye [facility] CPT-64859 Level 3 Est. Patient 15:03:20 CDT Harinder Shaye [facility] CPT-61045 Level 3 Est. Patient 12:14:34 CDT Harinder Shaye [facility] CPT-01400 Level 3 Est. Patient 13:47:15 CDT Harinder Cr [facility] CPT-09178 Level 3 Est. Patient 14:08:24 CDT Harinder Cr [facility] CPT-61769 Level 3 Est. Patient 10:07:15 CDT Harinder Cr [facility] CPT-77599 Level 3 Est. Patient 10:06:59 CDT Harinder Hernandez [facility] CPT-38773 Level 3 Est. Patient 15:53:29 CDT Jae Morgan MD [facility] CPT-00932 Level 3 Est. Patient 17:19:04 CDT Harinder Hernandez [facility] CPT-66320 Level 3 Est. Patient 11:13:01 CDT Harinder Hernandez [facility] CPT-35357 Level 3 Est. Patient 09:03:58 CDT Harinder Cr [facility] CPT-72637 Level 3 Est. Patient 14:46:45 [employer] Harinder Hernandez [facility] CPT-43237 Level 3 Est. Patient 09:35:49 [employer] Harinder Hernandez [facility] CPT-83604 Level 3 Est. Patient 09:29:37 [employer] Harinder Hernandez [facility] CPT-46870 Level 3 Est. Patient 15:51:07 CDT Harinder Cr [facility] CPT-04581 Level 3 Est. Patient 18:13:13 CDT Harinder Cr [facility] CPT-31607 Level 3 Est. Patient 10:44:19 CDT Harinder Cr [facility] CPT-28749 Level 4 Est. Patient 10:07:19 [employer] Harinder Cr [facility] CPT-63596 Level 3 Est. Patient 15:59:32 [employer] Harinder Cr [facility] Procedures Code Procedure Name Date Entry Date Standard Description CPT-92424 BMP - LAB USE ONLY 16:45:09 [employer] CPT-17064 Port a cath flush 12:00:13 [employer] CPT-TCMM Transitional Care Mgmt-Moderate 11:20:16 [employer] CPT-78050 First Vx - Ix admin for Medicare patients 17:35:15 CDT CPT-56094 Fluzone Preservative Free Intramuscular Suspension 17:35 :15 CDT CPT-01792 Microalbumin - LAB USE ONLY 11:52:05 CDT CPT-TCMM Transitional Care Mgmt-Moderate 11:33:57 CDT CPT-69137 No Charge Offi Visit 14:11:29 CDT CPT-81158 Magnesium - LAB USE ONLY 10:45:44 CDT CPT-17315 Lipid - LAB USE ONLY 10:45:44 CDT CPT-55697 CBC - LAB USE ONLY 10:45:44 CDT CPT-52897 Venipuncture Draw Fee 10:45:43 CDT CPT-86731 Venipuncture Draw Fee 18:21:27 CDT CPT-JTINJ Asp/Joint Injection 18:38:04 CDT CPT-49993 Immunization Each Additional Inj 17:38:04 CDT CPT-18469 Immunization Single Admin 17:38:04 CDT CPT-34185 Prevnar 13 17:38:04 CDT CPT-73489 Fluzone Quadrivalent preservative free (>=3yrs.) 17:38: 04 CDT CPT-86510 No Charge Offi Visit 11:14:03 CDT CPT-33897 Chest 2V Frontal and Lat 14:00:18 CDT CPT-OV Office Visit 16:10:28 CDT CPT-JTINJ Asp/Joint Injection 09:03:57 CDT CPT-Cryo Cryotherapy 09:35:49 [employer] CPT-JTINJ Asp/Joint Injection 09:34:45 [employer] CPT-J2930 Solu Medrol 125 mg (Methyl Prednisolone Sodium Succinate) 20:37:27 CDT CPT-38889 Abx/Therapy Injection 20:37:27 CDT CPT-40080 Port a cath flush 08:15:51 CDT CPT-19401 Port a cath flush 09:54:16 CDT CPT-34709 Port a cath flush 09:38:02 CDT CPT-12835 Port a cath flush 11:00:27 [employer]
--- OUTSIDE RECORDS SUMMARY | 2017-12-29 04:59 | XMS REPORT | Clinical Summary ---
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 NIFEDIPINE 52264102493 Active Harinder Hernandez DO Active AMLODIPINE BESYLATE 5 MG TABS 1 tablet by mouth daily AMLODIPINE BESYLATE 91445844479 No Longer Active Harinder Hernandez DO Active TOPAMAX 25 MG ORAL TABS 1 tab po BID TOPIRAMATE 35298346087 Active Kortney Mccain Active FLUTICASONE PROPIONATE 50 MCG/ACT SUSP 2 sprays per nostril daily PRN Allergies FLUTICASONE PROPIONATE 45519336642 Active Kortney Mccain Active NIFEDIPINE ER 30 MG ORAL [id number] 1 daily NIFEDIPINE 32119482307 No Longer Active Harinder Hernandez DO Active POTASSIUM CHLORIDE 20 MEQ ORAL PACK Take 1 tablet by mouth daily POTASSIUM CHLORIDE 31021767353 Prince Pimentel Active FLOVENT HFA 110 MCG/ACT AERO 2 puffs inhaled b.i.d. FLUTICASONE PROPIONATE HFA 28368183302 Active Harinder Hernandez DO Active POTASSIUM CHLORIDE CR 10 MEQ CPCR 1 capsule by mouth daily POTASSIUM CHLORIDE 46311198256 Active Harinder W David DO Active EPIPEN 2-BRUNA 0.3 MG/0.3ML INJ SOAJ 1 INJ NEEDED EPINEPHRINE 79084333635 Active Harinder Hernandez DO Active PREDNISONE 20 MG TAB 1 tab twice daily for 3 day, then one daily for three days PREDNISONE 55568400988 No Longer Active Harinder Hernandez DO Active PREDNISONE 20 MG TAB 1 tablet twice daily for 2 days, then 1 tablet once daily for 2 days PREDNISONE 79959829621 No Longer Active Harinder Hernandez DO Active ASMANEX 120 METERED DOSES 220 MCG/INH INH AEPB 2 puffs orally twice daily MOMETASONE FUROATE 87819367083 Active Jeri Sosa RPT,RMA Active TOPIRAMATE 25 MG TABS 1 tab po BID TOPIRAMATE 97621987050 No Longer Active Nettie Newberry APRN Active AMLODIPINE BESYLATE 5 MG ORAL TABS Take 1 tab po daily AMLODIPINE BESYLATE 68140974349 No Longer Active Nettie Newberry APRN Active MECLIZINE HCL 25 MG TAB 1 tablet three times daily for 3 days, then 1/2 tab three times daily for 3 days. MECLIZINE HCL 00948852397 No Longer Active Nettie Newberry APRN Active AMITRIPTYLINE HCL 25 MG ORAL TABS 1 q hs prn AMITRIPTYLINE HCL 02697188837 No Longer Active Nettie Newberry APRN Active DILAUDID 2 MG ORAL TABS Take 1/2 tab po every 4 hours as needed for pain 2014 HYDROMORPHONE HCL 70078828679 No Longer Active Nettie Newberry APRN Active CLOPIDOGREL BISULFATE 75 MG ORAL TABS 1 tab by mouth once daily CLOPIDOGREL BISULFATE 85057611677 Active Harinder Hernandez DO Active ATORVASTATIN CALCIUM 10 MG ORAL TABS 1 at bedtime ATORVASTATIN CALCIUM 52644722174 Active Tawnya Pardo MA Active LOVASTATIN 40 MG ORAL TABS Take 1 tab po every hs LOVASTATIN 20101018702 No Longer Active Harinder W David DO Active PREDNISONE 20 MG TAB 2 tabs daily for 4 days, 1 tab daily for 4 days, 1/2 tab daily for 4 days PREDNISONE 16601739160 No Longer Active Harinder Hernandez DO Active LEVAQUIN 500 MG ORAL TABS Take 1 tab po daily x 8 days LEVOFLOXACIN 68466060674 No Longer Active Harinder Hernandez DO Active VENTOLIN HFA 108 (90 BASE) MCG/ACT AERS 2 -4 puffs four times a day PRN 2013 ALBUTEROL SULFATE 28520903339 No Longer Active Jeri Sosa RPT,RMA Active ACEBUTOLOL HCL 200 MG CAPS 1 cap in the morning and 2 caps in the evening ACEBUTOLOL HCL 29470480527 No Longer Active Harinder Hernandez DO Active CEFDINIR 300 MG ORAL CAPS take 1 cap po bid x 10 days CEFDINIR 67779786844 No Longer Active Harinder Hernandez DO Active LOVASTATIN 40 MG TABS 1 pill by mouth nightly for cholesterol LOVASTATIN 63788395178 No Longer Active Nettie Newberry APRN Active NITROSTAT 0.4 MG SUBL 1 tab under tongueas needed for chest pain ( may take 3 total, 5 min apart, then call 911) NITROGLYCERIN 67348414871 No Longer Active Nettie Newberry APRN Active POTASSIUM CHLORIDE CR 10 MEQ CPCR 1 capsule by mouth daily 02/14 POTASSIUM CHLORIDE 17227015630 No Longer Active Nettie Newberry APRN Active TESSALON PERLES 100 MG CAP 1 to 2 tablets by mouth 3 times daily as needed for cough BENZONATATE 95099423431 No Longer Active Nettie Newberry APRN Active THEOPHYLLINE ER 200 MG ORAL [id number] Take 1 tab every 12 hours THEOPHYLLINE 04670922834 Active Kortney Mccain Active PREDNISONE 20 MG TAB 2 po qd x 5 days PREDNISONE 14333606358 No Longer Active Jae Morgan MD Active AZITHROMYCIN 250 MG TABS 2 po qd x 1 day, then 1 po qd x 4 days AZITHROMYCIN 44059596497 No Longer Active Jae Morgan MD Active PREDNISONE 20 MG TAB 1 tab twice daily for 3 day, then one daily for three days PREDNISONE 12093240803 No Longer Active Jae Morgan MD Active SINGULAIR 10 MG TABS 1 pill by mouth every evening for breathing. MONTELUKAST SODIUM 50409884438 Active Tawnya Pardo MA Active TYLENOL 325 MG TAB 3 by mouth q4h as needed ACETAMINOPHEN 12200900675 Active Harinder Hernandez DO Active POTASSIUM CHLORIDE ER 10 MEQ CR-TABS take 1 tab po daily POTASSIUM CHLORIDE 85650735391 No Longer Active Harinder Hernandez DO Active PREDNISONE 20 MG TAB 1 TID x 2 days, then 1 BID x 3 days, then 1 Daily x 3 days, then stop PREDNISONE 20787240859 No Longer Active Jillina Frazell DRUG SAFETY COORDINATOR Active LEVAQUIN 500 MG TAB 1 tablet by mouth daily LEVOFLOXACIN 41096966285 No Longer Active Jillina Frazell DRUG SAFETY COORDINATOR Active NEURONTIN 300 MG CAP 1 cap by mouth three times daily for restless leg 06/22 GABAPENTIN 32325033531 No Longer Active Harinder Hernandez DO Active BENZONATATE 100 MG CAPS 1 cap po TID PRN BENZONATATE 80296417208 No Longer Active Harinder Hernandez DO Active MONTELUKAST SODIUM 10 MG TABS 1 tab po in the evening MONTELUKAST SODIUM 84250230153 No Longer Active Harinder Hernandez DO Active MUPIROCIN 2 % OINT apply to affected area BID x 14 days MUPIROCIN 00278960043 No Longer Active Harinder Hernandez DO Active TYLENOL EXTRA STRENGTH 500 MG TABS as needed ACETAMINOPHEN 79953137281 No Longer Active Harinder Hernandez DO Active PREDNISONE 10 MG TABS 1 tab po daily PREDNISONE 64216772679 No Longer Active Harinder Hernandez DO Active PREDNISONE 20 MG TAB 2 tabs daily for 4 days, 1 tab daily for 4 days, 1/2 tab daily for 4 days PREDNISONE 81726939337 No Longer Active Harinder Hernandez DO Active AZITHROMYCIN 250 MG TABS 2 po qd x 1 day, then 1 po qd x 4 days AZITHROMYCIN 60653021233 No Longer Active Harinder Hernandez DO Active PREDNISONE 20 MG TAB 3 tabs today, then 1 tab twice daily for 3 day, then one daily for three days PREDNISONE 15686093559 No Longer Active Harinder Hernandez DO Active NIFEDIAC CC 30 MG [id number] 1 tablet daily for raynaud's syndrome NIFEDIPINE 51200496186 No Longer Active Tawnya Pardo MA Active AMBIEN 10 MG TAB 1/2 tab by mouth at bedtime as needed for sleep ZOLPIDEM TARTRATE 75847845695 Active Ciera Pimentel Active CLONAZEPAM 1 MG TABS 1 tablet at bedtime for insomnia and restless legs 09/14 CLONAZEPAM 15342629069 Active Harinder Hernandez DO Active CLONAZEPAM 0.5 MG TABS 1 tab po daily CLONAZEPAM 54147211048 No Longer Active Harinder Hernandez DO Active PREDNISONE 10 MG TAB 1 tablet daily for COPD PREDNISONE 76379240345 Active Ciera Pimentel Active PROAIR HFA 108 (90 BASE) MCG/ACT AERS 2 puffs four times a day as needed 2012 ALBUTEROL SULFATE 64385997243 Active Harinder Hernandez DO Active FLOVENT HFA 110 MCG/ACT AERO 2 puffs inhaled b.i.d. FLUTICASONE PROPIONATE HFA 00203557890 Active Kortney Mccain Active ACIPHEX 20 MG TBEC 1 tab po daily RABEPRAZOLE SODIUM 47949369156 Active Kaylah Newberry Active CLONAZEPAM 0.5 MG TABS 1 tab po daily CLONAZEPAM 0.5 MG TABS 027480 CLONAZEPAM Inactive PREDNISONE 20 MG TAB 3 tabs today, then 1 tab twice daily for 3 day, then one daily for three days PREDNISONE 20 MG TAB 148332 PREDNISONE Inactive PREDNISONE 20 MG TAB 2 tabs daily for 4 days, 1 tab daily for 4 days, 1/2 tab daily for 4 days PREDNISONE 20 MG TAB 486419 PREDNISONE Inactive PREDNISONE 10 MG TABS 1 tab po daily PREDNISONE 10 MG TABS 501182 PREDNISONE Inactive TYLENOL EXTRA STRENGTH 500 MG TABS as needed TYLENOL EXTRA STRENGTH 500 MG TABS 377585 ACETAMINOPHEN Inactive MUPIROCIN 2 % OINT apply to affected area BID x 14 days MUPIROCIN 2 % OINT 436730 MUPIROCIN Inactive MONTELUKAST SODIUM 10 MG TABS 1 tab po in the evening MONTELUKAST SODIUM 10 MG TABS 20010818 MONTELUKAST SODIUM Inactive BENZONATATE 100 MG CAPS 1 cap po TID PRN BENZONATATE 100 MG CAPS 216715 BENZONATATE Inactive NEURONTIN 300 MG CAP 1 cap by mouth three times daily for restless leg 06/22 NEURONTIN 300 MG CAP 316135 GABAPENTIN Inactive LEVAQUIN 500 MG TAB 1 tablet by mouth daily LEVAQUIN 500 MG TAB 048203 LEVOFLOXACIN Inactive PREDNISONE 20 MG TAB 1 TID x 2 days, then 1 BID x 3 days, then 1 Daily x 3 days, then stop PREDNISONE 20 MG TAB 432363 PREDNISONE Inactive POTASSIUM CHLORIDE ER 10 MEQ CR-TABS take 1 tab po daily POTASSIUM CHLORIDE ER 10 MEQ CR-TABS POTASSIUM CHLORIDE Inactive PREDNISONE 20 MG TAB 1 tab twice daily for 3 day, then one daily for three days PREDNISONE 20 MG TAB 915605 PREDNISONE Inactive TESSALON PERLES 100 MG CAP 1 to 2 tablets by mouth 3 times daily as needed for cough TESSALON PERLES 100 MG CAP 775811 BENZONATATE Inactive POTASSIUM CHLORIDE CR 10 MEQ CPCR 1 capsule by mouth daily 02/14 POTASSIUM CHLORIDE CR 10 MEQ CPCR POTASSIUM CHLORIDE Inactive NITROSTAT 0.4 MG SUBL 1 tab under tongueas needed for chest pain ( may take 3 total, 5 min apart, then call 911) NITROSTAT 0.4 MG SUBL 027664 NITROGLYCERIN Inactive LOVASTATIN 40 MG TABS 1 pill by mouth nightly for cholesterol LOVASTATIN 40 MG TABS 807793 LOVASTATIN Inactive CEFDINIR 300 MG ORAL CAPS take 1 cap po bid x 10 days CEFDINIR 300 MG ORAL CAPS 408791 CEFDINIR Inactive ACEBUTOLOL HCL 200 MG CAPS 1 cap in the morning and 2 caps in the evening ACEBUTOLOL HCL 200 MG CAPS 453533 ACEBUTOLOL HCL Inactive VENTOLIN HFA 108 (90 BASE) MCG/ACT AERS 2 -4 puffs four times a day PRN 2013 VENTOLIN HFA 108 (90 BASE) MCG/ACT AERS ALBUTEROL SULFATE Inactive LEVAQUIN 500 MG ORAL TABS Take 1 tab po daily x 8 days LEVAQUIN 500 MG ORAL TABS 764183 LEVOFLOXACIN Inactive PREDNISONE 20 MG TAB 2 tabs daily for 4 days, 1 tab daily for 4 days, 1/2 tab daily for 4 days PREDNISONE 20 MG TAB 217686 PREDNISONE Inactive LOVASTATIN 40 MG ORAL TABS Take 1 tab po every hs LOVASTATIN 40 MG ORAL TABS 691747 LOVASTATIN Inactive DILAUDID 2 MG ORAL TABS Take 1/2 tab po every 4 hours as needed for pain 2014 DILAUDID 2 MG ORAL TABS 584159 HYDROMORPHONE HCL Inactive AMITRIPTYLINE HCL 25 MG ORAL TABS 1 q hs prn AMITRIPTYLINE HCL 25 MG ORAL TABS 691783 AMITRIPTYLINE HCL Inactive MECLIZINE HCL 25 MG TAB 1 tablet three times daily for 3 days, then 1/2 tab three times daily for 3 days. MECLIZINE HCL 25 MG TAB 893264 MECLIZINE HCL Inactive AMLODIPINE BESYLATE 5 MG ORAL TABS Take 1 tab po daily AMLODIPINE BESYLATE 5 MG ORAL TABS 380872 AMLODIPINE BESYLATE Inactive TOPIRAMATE 25 MG TABS 1 tab po BID TOPIRAMATE 25 MG TABS 360157 TOPIRAMATE Inactive PREDNISONE 20 MG TAB 1 tablet twice daily for 2 days, then 1 tablet once daily for 2 days PREDNISONE 20 MG TAB 138177 PREDNISONE Inactive PREDNISONE 20 MG TAB 1 tab twice daily for 3 day, then one daily for three days PREDNISONE 20 MG TAB 498581 PREDNISONE Inactive NIFEDIPINE ER 30 MG ORAL [id number] 1 daily NIFEDIPINE ER 30 MG ORAL [id number] NIFEDIPINE Inactive AMLODIPINE BESYLATE 5 MG TABS 1 tablet by mouth daily AMLODIPINE BESYLATE 5 MG TABS 409644 AMLODIPINE BESYLATE Inactive AZITHROMYCIN 250 MG TABS 2 po qd x 1 day, then 1 po qd x 4 days AZITHROMYCIN 250 MG TABS 5946162 AZITHROMYCIN Inactive AZITHROMYCIN 250 MG TABS 2 po qd x 1 day, then 1 po qd x 4 days AZITHROMYCIN 250 MG TABS 5169248 AZITHROMYCIN Inactive PREDNISONE 20 MG TAB 2 po qd x 5 days PREDNISONE 20 MG TAB 790565 PREDNISONE Inactive Vital Signs Date Name Value [...] Panel - Chemistry sodium, serum 137 mmol/L 566-806 6917/01/03 potassium, serum 3.4 mmol/L 3.5-5.2 chloride, serum [...] Magnesium - Chemistry cholesterol, serum 180 mg/dL 546-410 4584/08/08 triglyceride, serum, fasting 92 mg/dL 30-200 HDL cholesterol, serum 66 mg/dL 32-96 LDL cholesterol, serum 96 mg/dL 0-130 sodium, serum 142 mmol/L 204-226 9892/08/08 carbon dioxide, venous blood 27.4 mmol/L 21.0-32.0 [...] 10.0-20.0 Encounters Code Encounter Date Provider Facility CPT-44927 Level 3 Est. Patient 11:51:58 CDT Harinder Hernandez [facility] CPT-53684 Level 3 Est. Patient 11:30:05 CDT Harinder Hernandez [facility] CPT-21587 Level 4 Est. Patient 10:19:23 CDT Harinder Hernandez [facility] CPT-85691 Level 3 Est. Patient 09:58:58 CDT Harinder Cr [facility] CPT-86536 Level 3 Est. Patient 12:37:21 CDT Harinder Cr [facility] CPT-90982 Level 3 Est. Patient 18:37:17 CDT Harinder Cr [facility] CPT-63416 Level 4 Est. Patient 11:15:54 CDT Nettie Newberry [facility] CPT-20816 Level 3 Est. Patient 16:42:24 CDT Harinder Cr [facility] CPT-06072 Level 3 Est. Patient 15:03:36 CDT Harinder Cr [facility] CPT-94888 Level 3 Est. Patient 15:03:20 CDT Harinder Cr [facility] CPT-41215 Level 3 Est. Patient 12:14:34 CDT Harinder Cr [facility] CPT-97605 Level 3 Est. Patient 13:47:15 CDT Harinder rC [facility] CPT-29928 Level 3 Est. Patient 14:08:24 CDT Harinder Cr [facility] CPT-02082 Level 3 Est. Patient 10:07:15 CDT Harinder Cr [facility] CPT-79588 Level 3 Est. Patient 10:06:59 CDT Harinder Cr [facility] CPT-60336 Level 3 Est. Patient 15:53:29 CDT Jae Morgan MD [facility] CPT-09391 Level 3 Est. Patient 17:19:04 CDT Harinder Cr David [facility] CPT-47336 Level 3 Est. Patient 11:13:01 CDT Harinder Hernandez [facility] CPT-35249 Level 3 Est. Patient 09:03:58 CDT Harinder Cr [facility] CPT-27746 Level 3 Est. Patient 14:46:45 POWER SAW MECHANIC Harinder Hernandez [facility] CPT-70429 Level 3 Est. Patient 09:35:49 P[employer]W MECH[employer]IC Harinder Shaye David [facility] CPT-05433 Level 3 Est. Patient 09:29:37 POWER [employer]W MECH[employer]IC Harinder Cr [facility] CPT-43419 Level 3 Est. Patient 15:51:07 CDT Harinder Hernandez [facility] CPT-83643 Level 3 Est. Patient 18:13:13 CDT Harinder Cr [facility] CPT-30822 Level 3 Est. Patient 10:44:19 CDT Harinder Cr [facility] CPT-06696 Level 4 Est. Patient 10:07:19 POWER SAW MECHANIC Harinder Cr [facility] CPT-21087 Level 3 Est. Patient 15:59:32 POWER SAW MECHANIC Harinder Cr [facility] Procedures Code Procedure Name Date Entry Date Standard Description CPT-27771 Hip, complete, 2-3 views - XRAY USE ONLY 10:28:40 CDT CPT-02032 BMP - LAB USE ONLY 16:45:09 P[employer]W [employer]CH[employer]IC CPT-00884 Port a cath flush 12:00:13 POWER SAW MECHANIC CPT-TCMM Transitional Care Mgmt-Moderate 11:20:16 POWER SAW MECHANIC CPT-18220 First Vx - Ix admin for Medicare patients 17:35:15 CDT CPT-44676 Fluzone Preservative Free Intramuscular Suspension 17:35 :15 CDT CPT-86303 Microalbumin - LAB USE ONLY 11:52:05 CDT CPT-TCMM Transitional Care Mgmt-Moderate 11:33:57 CDT CPT-91426 No Charge Offi Visit 14:11:29 CDT CPT-58914 Magnesium - LAB USE ONLY 10:45:44 CDT CPT-10887 Lipid - LAB USE ONLY 10:45:44 CDT CPT-46570 CBC - LAB USE ONLY 10:45:44 CDT CPT-97439 Venipuncture Draw Fee 10:45:43 CDT CPT-85773 Venipuncture Draw Fee 18:21:27 CDT CPT-JTINJ Asp/Joint Injection 18:38:04 CDT CPT-15794 Immunization Each Additional Inj 17:38:04 CDT CPT-97708 Immunization Single Admin 17:38:04 CDT CPT-27972 Prevnar 13 17:38:04 CDT CPT-83118 Fluzone Quadrivalent preservative free (>=3yrs.) 17:38: 04 CDT CPT-99657 No Charge Offi Visit 11:14:03 CDT CPT-56349 Chest 2V Frontal and Lat 14:00:18 CDT CPT-OV Office Visit 16:10:28 CDT CPT-JTINJ Asp/Joint Injection 09:03:57 CDT CPT-Cryo Cryotherapy 09:35:49 POWER SAW MECHANIC CPT-JTINJ Asp/Joint Injection 09:34:45 POWER SAW MECHANIC CPT-J2930 Solu Medrol 125 mg (Methyl Prednisolone Sodium Succinate) 20:37:27 CDT CPT-15375 Abx/Therapy Injection 20:37:27 CDT CPT-14416 Port a cath flush 08:15:51 CDT CPT-73406 Port a cath flush 09:54:16 CDT CPT-39694 Port a cath flush 09:38:02 CDT CPT-83648 Port a cath flush 11:00:27 POWER [employer]W MECHANIC
--- OUTSIDE RECORDS SUMMARY | 2017-12-29 05:01 | XMS REPORT | Clinical Summary ---
Author Author Admin, QIE Organization [facility] Address Unknown Phone Unavailable Allergies, Adverse Reactions, [...] then one daily for three days PREDNISONE [id number] No Longer Active Harinder Hernandez DO Active PREDNISONE 20 MG TAB 1 tablet twice daily for 2 days, then 1 tablet once daily for 2 days PREDNISONE 38091607260 No Longer Active Harinder Hernandez DO Active ASMANEX 120 METERED DOSES 220 MCG/INH INH AEPB 2 puffs orally twice daily MOMETASONE FUROATE 54391745558 Active Jeri Sosa RPT,RMA Active NIFEDIPINE ER 30 MG ORAL [id number] 1 daily NIFEDIPINE 13335972252 Active Tawnya Pardo MA Active TOPIRAMATE 25 MG TABS 1 tab po BID TOPIRAMATE 49732442999 No Longer Active Nettie Newberry APRN Active AMLODIPINE BESYLATE 5 MG ORAL TABS Take 1 tab po daily AMLODIPINE BESYLATE 94124343222 No Longer Active Nettie Newberry APRN Active MECLIZINE HCL 25 MG TAB 1 tablet three times daily for 3 days, then 1/2 tab three times daily for 3 days. MECLIZINE HCL 24241560189 No Longer Active Nettie Newberry APRN Active AMITRIPTYLINE HCL 25 MG ORAL TABS 1 q hs prn AMITRIPTYLINE HCL 57354298679 No Longer Active Nettie Newberry APRN Active DILAUDID 2 MG ORAL TABS Take 1/2 tab po every 4 hours as needed for pain 2014 HYDROMORPHONE HCL 45511200540 No Longer Active Nettie Newberry APRN Active CLOPIDOGREL BISULFATE 75 MG ORAL TABS 1 tab by mouth once daily CLOPIDOGREL BISULFATE 82234637523 Active Tawnya Pardo MA Active ATORVASTATIN CALCIUM 10 MG ORAL TABS 1 at bedtime ATORVASTATIN CALCIUM 84561375848 Active Tawnya Pardo MA Active LOVASTATIN 40 MG ORAL TABS Take 1 tab po every hs LOVASTATIN 07412278002 No Longer Active Harinder Hernandez DO Active PREDNISONE 20 MG TAB 2 tabs daily for 4 days, 1 tab daily for 4 days, 1/2 tab daily for 4 days PREDNISONE 47278047681 No Longer Active Harinder Hernandez DO Active LEVAQUIN 500 MG ORAL TABS Take 1 tab po daily x 8 days LEVOFLOXACIN 27594089204 No Longer Active Harinder Hernandez DO Active VENTOLIN HFA 108 (90 BASE) MCG/ACT AERS 2 -4 puffs four times a day PRN 2013 ALBUTEROL SULFATE [id number] No Longer Active Jeri Sosa RPT,RMA Active ACEBUTOLOL HCL 200 MG CAPS 1 cap in the morning and 2 caps in the evening ACEBUTOLOL HCL 46845584239 No Longer Active Harinder Hernandez DO Active CEFDINIR 300 MG ORAL CAPS take 1 cap po bid x 10 days CEFDINIR 81050569609 No Longer Active Harinder Hernandez DO Active LOVASTATIN 40 MG TABS 1 pill by mouth nightly for cholesterol LOVASTATIN 05170473970 No Longer Active Nettie Newberry APRN Active NITROSTAT 0.4 MG SUBL 1 tab under tongueas needed for chest pain ( may take 3 total, 5 min apart, then call 911) NITROGLYCERIN 10059134083 No Longer Active Nettie Newberry APRN Active POTASSIUM CHLORIDE CR 10 MEQ CPCR 1 capsule by mouth daily 02/14 POTASSIUM CHLORIDE 39585694749 No Longer Active Nettie Newberry APRN Active TESSALON PERLES 100 MG CAP 1 to 2 tablets by mouth 3 times daily as needed for cough BENZONATATE 48409720602 No Longer Active Nettie Newberry APRN Active THEOPHYLLINE ER 200 MG ORAL EN74S-LEI Take 1 tab every 12 hours THEOPHYLLINE 61832873104 Active Tawnya Pardo MA Active PREDNISONE 20 MG TAB 2 po qd x 5 days PREDNISONE 41144381104 No Longer Active Jae Morgan MD Active AZITHROMYCIN 250 MG TABS 2 po qd x 1 day, then 1 po qd x 4 days AZITHROMYCIN 39645836032 No Longer Active Jae Morgan MD Active PREDNISONE 20 MG TAB 1 tab twice daily for 3 day, then one daily for three days PREDNISONE 71901290802 No Longer Active Jae Morgan MD Active SINGULAIR 10 MG TABS 1 pill by mouth every evening for breathing. 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 LEVAQUIN 500 MG TAB 1 tablet by mouth daily LEVOFLOXACIN 37110878997 No Longer Active Jillina Frazell MA[employer]GER [employer] Active NEURONTIN 300 MG CAP 1 cap by mouth three times daily for restless leg 06/22 GABAPENTIN 06383030773 No Longer Active Harinder Hernandez DO Active BENZONATATE 100 MG CAPS 1 cap po TID PRN BENZONATATE 44609805735 No Longer Active Harinder Hernandez DO Active MONTELUKAST SODIUM 10 MG TABS 1 tab po in the evening MONTELUKAST SODIUM 45007376091 No Longer Active Harinder Hernandez DO Active MUPIROCIN 2 % OINT apply to affected area BID x 14 days MUPIROCIN 01874932714 No Longer Active Harinder Hernandez DO Active TYLENOL EXTRA STRENGTH 500 MG TABS as needed ACETAMINOPHEN 99460289652 No Longer Active Harinder Hernandez DO Active PREDNISONE 10 MG TABS 1 tab po daily PREDNISONE 31097771464 No Longer Active Harinder Hernandez DO Active PREDNISONE 20 MG TAB 2 tabs daily for 4 days, 1 tab daily for 4 days, 1/2 tab daily for 4 days PREDNISONE 63394070788 No Longer Active Harinder Hernandez DO Active AZITHROMYCIN 250 MG TABS 2 po qd x 1 day, then 1 po qd x 4 days AZITHROMYCIN 64827178214 No Longer Active Harinder Hernandez DO Active PREDNISONE 20 MG TAB 3 tabs today, then 1 tab twice daily for 3 day, then one daily for three days PREDNISONE 60649849659 No Longer Active Harinder Hernandez DO Active NIFEDIAC CC 30 MG SR62O-AVE 1 tablet daily for raynaud's syndrome NIFEDIPINE 68386380384 No Longer Active Tawnya Pardo MA Active AMBIEN 10 MG TAB 1/2 tab by mouth at bedtime as needed for sleep ZOLPIDEM TARTRATE 85852238793 Active Harinder Hernandez DO Active CLONAZEPAM 1 MG TABS 1 tablet at bedtime for insomnia and restless legs 09/14 CLONAZEPAM 55812671877 Active Tawnya Pardo MA Active CLONAZEPAM 0.5 MG TABS 1 tab po daily CLONAZEPAM 31059048318 No Longer Active Harinder Hernandez DO Active PREDNISONE 10 MG TAB 1 tablet daily for COPD PREDNISONE 10685084116 Active Tawnya Pardo MA Active PROAIR HFA 108 (90 BASE) MCG/ACT AERS 2 puffs four times a day as needed 2012 ALBUTEROL SULFATE 48670693579 Active Tawnya Pardo MA Active FLOVENT HFA 110 MCG/ACT AERO 2 puffs inhaled b.i.d. FLUTICASONE PROPIONATE HFA 19830342359 Active Tawnya Pardo MA Active EPIPEN 0.3 MG/0.3ML URIEL DIRECTED EPINEPHRINE Active Jeri Sosa RPT,RMA Active ACIPHEX 20 MG TBEC 1 tab po daily RABEPRAZOLE SODIUM 90900021485 Active Tawnya Pardo MA Active CLONAZEPAM 0.5 MG TABS 1 tab po daily CLONAZEPAM 0.5 MG TABS 663484 CLONAZEPAM Inactive PREDNISONE 20 MG TAB 3 tabs today, then 1 tab twice daily for 3 day, then one daily for three days PREDNISONE 20 MG TAB 458187 PREDNISONE Inactive PREDNISONE 20 MG TAB 2 tabs daily for 4 days, 1 tab daily for 4 days, 1/2 tab daily for 4 days PREDNISONE 20 MG TAB 210053 PREDNISONE Inactive PREDNISONE 10 MG TABS 1 tab po daily PREDNISONE 10 MG TABS 173098 PREDNISONE Inactive TYLENOL EXTRA STRENGTH 500 MG TABS as needed TYLENOL EXTRA STRENGTH 500 MG TABS 290144 ACETAMINOPHEN Inactive MUPIROCIN 2 % OINT apply to affected area BID x 14 days MUPIROCIN 2 % OINT 440742 MUPIROCIN Inactive MONTELUKAST SODIUM 10 MG TABS 1 tab po in the evening MONTELUKAST SODIUM 10 MG TABS 571911 MONTELUKAST SODIUM Inactive BENZONATATE 100 MG CAPS 1 cap po TID PRN BENZONATATE 100 MG CAPS 801383 BENZONATATE Inactive NEURONTIN 300 MG CAP 1 cap by mouth three times daily for restless leg 06/22 NEURONTIN 300 MG CAP 856054 GABAPENTIN Inactive LEVAQUIN 500 MG TAB 1 tablet by mouth daily LEVAQUIN 500 MG TAB 165058 LEVOFLOXACIN Inactive PREDNISONE 20 MG TAB 1 TID x 2 days, then 1 BID x 3 days, then 1 Daily x 3 days, then stop PREDNISONE 20 MG TAB 908062 PREDNISONE Inactive POTASSIUM CHLORIDE ER 10 MEQ CR-TABS take 1 tab po daily POTASSIUM CHLORIDE ER 10 MEQ CR-TABS POTASSIUM CHLORIDE Inactive PREDNISONE 20 MG TAB 1 tab twice daily for 3 day, then one daily for three days PREDNISONE 20 MG TAB 929555 PREDNISONE Inactive TESSALON PERLES 100 MG CAP 1 to 2 tablets by mouth 3 times daily as needed for cough TESSALON PERLES 100 MG CAP 828159 BENZONATATE Inactive POTASSIUM CHLORIDE CR 10 MEQ [...] nightly for cholesterol LOVASTATIN 40 MG TABS 770000 LOVASTATIN Inactive CEFDINIR 300 MG ORAL CAPS take 1 cap po bid x 10 days CEFDINIR 300 MG ORAL CAPS 131479 CEFDINIR Inactive ACEBUTOLOL HCL 200 MG CAPS 1 cap in the morning and 2 caps in the evening ACEBUTOLOL HCL 200 MG CAPS 935436 ACEBUTOLOL HCL Inactive VENTOLIN HFA 108 (90 BASE) MCG/ACT AERS 2 -4 puffs four times a day PRN 2013 VENTOLIN HFA 108 (90 BASE) MCG/ACT AERS ALBUTEROL SULFATE Inactive LEVAQUIN 500 MG ORAL TABS Take 1 tab po daily x 8 days LEVAQUIN 500 MG ORAL TABS 515031 LEVOFLOXACIN Inactive PREDNISONE 20 MG TAB 2 tabs daily for 4 days, 1 tab daily for 4 days, 1/2 tab daily for 4 days PREDNISONE 20 MG TAB 057209 PREDNISONE Inactive LOVASTATIN 40 MG ORAL TABS Take 1 tab po every hs LOVASTATIN 40 MG ORAL TABS 021801 LOVASTATIN Inactive DILAUDID 2 MG ORAL TABS Take 1/2 tab po every 4 hours as needed for pain 2014 DILAUDID 2 MG ORAL TABS 689414 HYDROMORPHONE HCL Inactive AMITRIPTYLINE HCL 25 MG ORAL TABS 1 q hs prn AMITRIPTYLINE HCL 25 MG ORAL TABS 755289 AMITRIPTYLINE HCL Inactive MECLIZINE HCL 25 MG TAB 1 tablet three times daily for 3 days, then 1/2 tab three times daily for 3 days. MECLIZINE HCL 25 MG TAB 268438 MECLIZINE HCL Inactive AMLODIPINE BESYLATE 5 MG ORAL TABS Take 1 tab po daily AMLODIPINE BESYLATE 5 MG ORAL TABS 658277 AMLODIPINE BESYLATE Inactive TOPIRAMATE 25 MG TABS 1 tab po BID TOPIRAMATE 25 MG TABS 439841 TOPIRAMATE Inactive PREDNISONE 20 MG TAB 1 tablet twice daily for 2 days, then 1 tablet once daily for 2 days PREDNISONE 20 MG TAB 490057 PREDNISONE Inactive PREDNISONE 20 MG TAB 1 tab twice daily for 3 day, then one daily for three days PREDNISONE 20 MG TAB 721507 PREDNISONE Inactive AZITHROMYCIN 250 MG TABS 2 po qd x 1 day, then 1 po qd x 4 days AZITHROMYCIN 250 MG TABS 0716920 AZITHROMYCIN Inactive AZITHROMYCIN 250 MG TABS 2 po qd x 1 day, then 1 po qd x 4 days AZITHROMYCIN 250 MG TABS 9898530 AZITHROMYCIN Inactive PREDNISONE 20 MG TAB 2 po qd x 5 days PREDNISONE 20 MG TAB 090321 PREDNISONE Inactive Vital Signs Date Name Value [...] pressure, diastolic - 8462-4 70 mm[Hg] BP adna blood pressure, systolic - 8480-6 117 mm[Hg] BP sys pulse rate E&M - 8867-4 66 /min Heart rate temperature E&M 97.3 [degF] Body temperature weight E&M - 3141-9 120 [lb_av] Weight Measured Diagnostic Results Date Name Value Unit Range Description Lab Report: Basic Metabolic Panel - Chemistry sodium, serum 138 mmol/L 830-758 7632/09/24 potassium, serum 3.5 mmol/L 3.5-5.2 chloride, serum [...] Magnesium - Chemistry cholesterol, serum 180 mg/dL 453-424 6031/08/08 triglyceride, serum, fasting 92 mg/dL 30-200 HDL cholesterol, serum 66 mg/dL 32-96 LDL cholesterol, serum 96 mg/dL 0-130 sodium, serum 142 mmol/L 122-269 2849/08/08 carbon dioxide, venous blood 27.4 mmol/L 21.0-32.0 [...] 10.0-20.0 Encounters Code Encounter Date Provider Facility CPT-21659 Level 3 Est. Patient 09:58:58 CDT Harinder Cr [facility] CPT-65657 Level 3 Est. Patient 12:37:21 CDT Harinder Cr [facility] CPT-80481 Level 3 Est. Patient 18:37:17 CDT Harinder Cr [facility] CPT-32936 Level 4 Est. Patient 11:15:54 CDT Nettie Newberry [facility] CPT-25278 Level 3 Est. Patient 16:42:24 CDT Harinder Cr [facility] CPT-46168 Level 3 Est. Patient 15:03:36 CDT Harinder Cr [facility] CPT-06805 Level 3 Est. Patient 15:03:20 CDT Harinder Cr [facility] CPT-37863 Level 3 Est. Patient 12:14:34 CDT Harinder Cr [facility] CPT-08222 Level 3 Est. Patient 13:47:15 CDT Harinder Cr [facility] CPT-71679 Level 3 Est. Patient 14:08:24 CDT Harinder Shaye [facility] CPT-69188 Level 3 Est. Patient 10:07:15 CDT Harinder Shaye [facility] CPT-74689 Level 3 Est. Patient 10:06:59 CDT Harinder Cr [facility] CPT-88674 Level 3 Est. Patient 15:53:29 CDT Jae Morgan MD [facility] CPT-62954 Level 3 Est. Patient 17:19:04 CDT Harinder Hernandez [facility] CPT-04002 Level 3 Est. Patient 11:13:01 CDT Harinder Hernandez [facility] CPT-42059 Level 3 Est. Patient 09:03:[address] [facility] CPT-49953 Level 3 Est. Patient 14:46:45 PROTEIN SCIENTIST Harinder Hernandez [facility] CPT-04361 Level 3 Est. Patient 09:35:49 PROTEIN SCIENTIST Harinder Hernandez [facility] CPT-03753 Level 3 Est. Patient 09:29:37 PROTEIN SCIENTIST Harinder Cr [facility] CPT-95355 Level 3 Est. Patient 15:51:07 CDT Harinder Hernandez [facility] CPT-87558 Level 3 Est. Patient 18:13:13 CDT Harinder Cr [facility] CPT-79713 Level 3 Est. Patient 10:44:19 CDT Harinder Cr [facility] CPT-19130 Level 4 Est. Patient 10:07:19 PROTEIN SCIENTIST Harinder Cr [facility] CPT-53505 Level 3 Est. Patient 15:59:32 PROTEIN SCIENTIST Harinder Cr [facility] Procedures Code Procedure Name Date Entry Date Standard Description CPT-TCMM Transitional Care Mgmt-Moderate 11:33:57 CDT CPT-47964 No Charge Offi Visit 14:11:29 CDT CPT-36990 Magnesium - LAB USE ONLY 10:45:44 CDT CPT-74252 Lipid - LAB USE ONLY 10:45:44 CDT CPT-36792 CBC - LAB USE ONLY 10:45:44 CDT CPT-84472 Venipuncture Draw Fee 10:45:43 CDT CPT-28414 Venipuncture Draw Fee 18:21:27 CDT CPT-JTINJ Asp/Joint Injection 18:38:04 CDT CPT-49825 Immunization Each Additional Inj 17:38:04 CDT CPT-22153 Immunization Single Admin 17:38:04 CDT CPT-52553 Prevnar 13 17:38:04 CDT CPT-44392 Fluzone Quadrivalent preservative free (>=3yrs.) 17:38: 04 CDT CPT-10809 No Charge Offi Visit 11:14:03 CDT CPT-39085 Chest 2V Frontal and Lat 14:00:18 CDT CPT-OV Office Visit 16:10:28 CDT CPT-JTINJ Asp/Joint Injection 09:03:57 CDT CPT-Cryo Cryotherapy 09:35:49 PROTEIN SCIENTIST CPT-JTINJ Asp/Joint Injection 09:34:45 PROTEIN SCIENTIST CPT-J2930 Solu Medrol 125 mg (Methyl Prednisolone Sodium Succinate) 20:37:27 CDT CPT-46175 Abx/Therapy Injection 20:37:27 CDT CPT-57121 Port a cath flush 08:15:51 CDT CPT-87556 Port a cath flush 09:54:16 CDT CPT-02097 Port a cath flush 09:38:02 CDT CPT-08749 Port a cath flush 11:00:27 PROTEIN SCIENTIST
--- OUTSIDE RECORDS SUMMARY | 2017-12-29 05:03 | XMS REPORT | Clinical Summary ---
Author Author Admin, QIE Organization [facility] Address Unknown Phone Unavailable Allergies, Adverse Reactions, [...] neb q 4hrs PRN Wheezing ALBUTEROL SULFATE [id number] Active Harinder Hernandez DO Active FLOVENT HFA 110 MCG/ACT AERO 2 puffs inhaled b.i.d. FLUTICASONE PROPIONATE HFA 96915673262 Active Harinder Hernandez DO Active POTASSIUM CHLORIDE CR 10 MEQ CPCR 1 capsule by mouth daily POTASSIUM CHLORIDE 68963894467 Active Harinder Hernandez DO Active EPIPEN 2-BRUNA 0.3 MG/0.3ML INJ SOAJ 1 INJ NEEDED EPINEPHRINE 37112184861 Active Tawnya Pardo MA Active PREDNISONE 20 MG TAB 1 tab twice daily for 3 day, then one daily for three days PREDNISONE 25853914059 No Longer Active Harinder Hernandez DO Active PREDNISONE 20 MG TAB 1 tablet twice daily for 2 days, then 1 tablet once daily for 2 days PREDNISONE 23978600163 No Longer Active Harinder Hernandez DO Active ASMANEX 120 METERED DOSES 220 MCG/INH INH AEPB 2 puffs orally twice daily MOMETASONE FUROATE 97528453771 Active Jeri Sosa RPT,RMA Active NIFEDIPINE ER 30 MG ORAL [id number] 1 daily NIFEDIPINE 48801406643 Active Harinder Hernandez DO Active TOPIRAMATE 25 MG TABS 1 tab po BID TOPIRAMATE 21580504436 No Longer Active Nettie Newberry APRN Active AMLODIPINE BESYLATE 5 MG ORAL TABS Take 1 tab po daily AMLODIPINE BESYLATE 46159097521 No Longer Active Nettie Newberry APRN Active MECLIZINE HCL 25 MG TAB 1 tablet three times daily for 3 days, then 1/2 tab three times daily for 3 days. MECLIZINE HCL 81571785429 No Longer Active Nettie Newberry APRN Active AMITRIPTYLINE HCL 25 MG ORAL TABS 1 q hs prn AMITRIPTYLINE HCL 90094130365 No Longer Active Nettie Newberry APRN Active DILAUDID 2 MG ORAL TABS Take 1/2 tab po every 4 hours as needed for pain 2014 HYDROMORPHONE HCL 80353688907 No Longer Active Nettie Newberry APRN Active CLOPIDOGREL BISULFATE 75 MG ORAL TABS 1 tab by mouth once daily CLOPIDOGREL BISULFATE 42822783820 Active Tawnya Pardo MA Active ATORVASTATIN CALCIUM 10 MG ORAL TABS 1 at bedtime ATORVASTATIN CALCIUM 10694459263 Active Tawnya Pardo MA Active LOVASTATIN 40 MG ORAL TABS Take 1 tab po every hs LOVASTATIN 73394561862 No Longer Active Harinder Hernandez DO Active PREDNISONE 20 MG TAB 2 tabs daily for 4 days, 1 tab daily for 4 days, 1/2 tab daily for 4 days PREDNISONE 72057967423 No Longer Active Harinder Hernandez DO Active LEVAQUIN 500 MG ORAL TABS Take 1 tab po daily x 8 days LEVOFLOXACIN 10274551116 No Longer Active Harinder Hernandez DO Active VENTOLIN HFA 108 (90 BASE) MCG/ACT AERS 2 -4 puffs four times a day PRN 2013 ALBUTEROL SULFATE 01947109680 No Longer Active Jeri Sosa RPT,RMA Active ACEBUTOLOL HCL 200 MG CAPS 1 cap in the morning and 2 caps in the evening ACEBUTOLOL HCL 05447490370 No Longer Active Harinder Hernandez DO Active CEFDINIR 300 MG ORAL CAPS take 1 cap po bid x 10 days CEFDINIR 06281993726 No Longer Active Harinder Hernandez DO Active LOVASTATIN 40 MG TABS 1 pill by mouth nightly for cholesterol LOVASTATIN 39886301631 No Longer Active Nettie Newberry APRN Active NITROSTAT 0.4 MG SUBL 1 tab under tongueas needed for chest pain ( may take 3 total, 5 min apart, then call 911) NITROGLYCERIN 42279785731 No Longer Active Nettie Newberry MAHENDRA Active POTASSIUM CHLORIDE CR 10 MEQ CPCR 1 capsule by mouth daily 02/14 POTASSIUM CHLORIDE 20780042340 No Longer Active Nettie Newberry MAHENDRA Active TESSALON PERLES 100 MG CAP 1 to 2 tablets by mouth 3 times daily as needed for cough BENZONATATE 54074028146 No Longer Active Nettie Newberry MAHENDRA Active THEOPHYLLINE ER 200 MG ORAL [id number] Take 1 tab every 12 hours THEOPHYLLINE 50524232319 Active Tawnya Pardo MA Active PREDNISONE 20 MG TAB 2 po qd x 5 days PREDNISONE 10018076451 No Longer Active Jae Morgan MD Active AZITHROMYCIN 250 MG TABS 2 po qd x 1 day, then 1 po qd x 4 days AZITHROMYCIN 17179402152 No Longer Active Jae Morgan MD Active PREDNISONE 20 MG TAB 1 tab twice daily for 3 day, then one daily for three days PREDNISONE 06113215192 No Longer Active Jae Morgan MD Active SINGULAIR 10 MG TABS 1 pill by mouth every evening for breathing. 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 NEURONTIN 300 MG CAP 1 cap by mouth three times daily for restless leg 06/22 GABAPENTIN 30814771529 No Longer Active Harinder Hernandez DO Active BENZONATATE 100 MG CAPS 1 cap po TID PRN BENZONATATE 45740165082 No Longer Active Harinder Hernandez DO Active MONTELUKAST SODIUM 10 MG TABS 1 tab po in the evening MONTELUKAST SODIUM 46927305980 No Longer Active Harinder Hernandez DO Active MUPIROCIN 2 % OINT apply to affected area BID x 14 days MUPIROCIN 25473452705 No Longer Active Harinder Hernandez DO Active TYLENOL EXTRA STRENGTH 500 MG TABS as needed ACETAMINOPHEN 54496742879 No Longer Active Harinder Hernandez DO Active PREDNISONE 10 MG TABS 1 tab po daily PREDNISONE 67229361834 No Longer Active Harinder Hernandez DO Active PREDNISONE 20 MG TAB 2 tabs daily for 4 days, 1 tab daily for 4 days, 1/2 tab daily for 4 days PREDNISONE 67712442839 No Longer Active Harinder Hernandez DO Active AZITHROMYCIN 250 MG TABS 2 po qd x 1 day, then 1 po qd x 4 days AZITHROMYCIN 61251632913 No Longer Active Harinder Hernandez DO Active PREDNISONE 20 MG TAB 3 tabs today, then 1 tab twice daily for 3 day, then one daily for three days PREDNISONE 36977890171 No Longer Active Harinder Hernandez DO Active NIFEDIAC CC 30 MG [id number] 1 tablet daily for raynaud's syndrome NIFEDIPINE 49731173185 No Longer Active Tawnya Pardo MA Active AMBIEN 10 MG TAB 1/2 tab by mouth at bedtime as needed for sleep ZOLPIDEM TARTRATE 40911119821 Active Harinder Hernandez DO Active CLONAZEPAM 1 MG TABS 1 tablet at bedtime for insomnia and restless legs 09/14 CLONAZEPAM 23422848526 Active Harinder Hernandez DO Active CLONAZEPAM 0.5 MG TABS 1 tab po daily CLONAZEPAM 51854025425 No Longer Active Harinder Hernandez DO Active PREDNISONE 10 MG TAB 1 tablet daily for COPD PREDNISONE 25486514234 Active Tawnya Pardo MA Active PROAIR HFA 108 (90 BASE) MCG/ACT AERS 2 puffs four times a day as needed 2012 ALBUTEROL SULFATE 54254566674 Active Tawnya Pardo MA Active FLOVENT HFA 110 MCG/ACT AERO 2 puffs inhaled b.i.d. FLUTICASONE PROPIONATE HFA 44649427263 Active Tawnya Pardo MA Active ACIPHEX 20 MG TBEC 1 tab po daily RABEPRAZOLE SODIUM 19053119974 Active Kaylah Newberry Active CLONAZEPAM 0.5 MG TABS 1 tab po daily CLONAZEPAM 0.5 MG TABS 706735 CLONAZEPAM Inactive PREDNISONE 20 MG TAB 3 tabs today, then 1 tab twice daily for 3 day, then one daily for three days PREDNISONE 20 MG TAB 959305 PREDNISONE Inactive PREDNISONE 20 MG TAB 2 tabs daily for 4 days, 1 tab daily for 4 days, 1/2 tab daily for 4 days PREDNISONE 20 MG TAB 936423 PREDNISONE Inactive PREDNISONE 10 MG TABS 1 tab po daily PREDNISONE 10 MG TABS 096778 PREDNISONE Inactive TYLENOL EXTRA STRENGTH 500 MG TABS as needed TYLENOL EXTRA STRENGTH 500 MG TABS 513119 ACETAMINOPHEN Inactive MUPIROCIN 2 % OINT apply to affected area BID x 14 days MUPIROCIN 2 % OINT 208717 MUPIROCIN Inactive MONTELUKAST SODIUM 10 MG TABS 1 tab po in the evening MONTELUKAST SODIUM 10 MG TABS 20010818 MONTELUKAST SODIUM Inactive BENZONATATE 100 MG CAPS 1 cap po TID PRN BENZONATATE 100 MG CAPS 341927 BENZONATATE Inactive NEURONTIN 300 MG CAP 1 cap by mouth three times daily for restless leg 06/22 NEURONTIN 300 MG CAP 434261 GABAPENTIN Inactive LEVAQUIN 500 MG TAB 1 tablet by mouth daily LEVAQUIN 500 MG TAB 887282 LEVOFLOXACIN Inactive PREDNISONE 20 MG TAB 1 TID x 2 days, then 1 BID x 3 days, then 1 Daily x 3 days, then stop PREDNISONE 20 MG TAB 640193 PREDNISONE Inactive POTASSIUM CHLORIDE ER 10 MEQ CR-TABS take 1 tab po daily POTASSIUM CHLORIDE ER 10 MEQ CR-TABS POTASSIUM CHLORIDE Inactive PREDNISONE 20 MG TAB 1 tab twice daily for 3 day, then one daily for three days PREDNISONE 20 MG TAB 893279 PREDNISONE Inactive TESSALON PERLES 100 MG CAP 1 to 2 tablets by mouth 3 times daily as needed for cough TESSALON PERLES 100 MG CAP 025226 BENZONATATE Inactive POTASSIUM CHLORIDE CR 10 MEQ CPCR 1 capsule by mouth daily 02/14 POTASSIUM CHLORIDE CR 10 MEQ CPCR POTASSIUM CHLORIDE Inactive NITROSTAT 0.4 MG SUBL 1 tab under tongueas needed for chest pain ( may take 3 total, 5 min apart, then call 911) NITROSTAT 0.4 MG SUBL 189443 NITROGLYCERIN Inactive LOVASTATIN 40 MG TABS 1 pill by mouth nightly for cholesterol LOVASTATIN 40 MG TABS 309990 LOVASTATIN Inactive CEFDINIR 300 MG ORAL CAPS take 1 cap po bid x 10 days CEFDINIR 300 MG ORAL CAPS 777224 CEFDINIR Inactive ACEBUTOLOL HCL 200 MG CAPS 1 cap in the morning and 2 caps in the evening ACEBUTOLOL HCL 200 MG CAPS 975309 ACEBUTOLOL HCL Inactive VENTOLIN HFA 108 (90 BASE) MCG/ACT AERS 2 -4 puffs four times a day PRN 2013 VENTOLIN HFA 108 (90 BASE) MCG/ACT AERS ALBUTEROL SULFATE Inactive LEVAQUIN 500 MG ORAL TABS Take 1 tab po daily x 8 days LEVAQUIN 500 MG ORAL TABS 283224 LEVOFLOXACIN Inactive PREDNISONE 20 MG TAB 2 tabs daily for 4 days, 1 tab daily for 4 days, 1/2 tab daily for 4 days PREDNISONE 20 MG TAB 150913 PREDNISONE Inactive LOVASTATIN 40 MG ORAL TABS Take 1 tab po every hs LOVASTATIN 40 MG ORAL TABS 900339 LOVASTATIN Inactive DILAUDID 2 MG ORAL TABS Take 1/2 tab po every 4 hours as needed for pain 2014 DILAUDID 2 MG ORAL TABS 917550 HYDROMORPHONE HCL Inactive AMITRIPTYLINE HCL 25 MG ORAL TABS 1 q hs prn AMITRIPTYLINE HCL 25 MG ORAL TABS 013032 AMITRIPTYLINE HCL Inactive MECLIZINE HCL 25 MG TAB 1 tablet three times daily for 3 days, then 1/2 tab three times daily for 3 days. MECLIZINE HCL 25 MG TAB 235590 MECLIZINE HCL Inactive AMLODIPINE BESYLATE 5 MG ORAL TABS Take 1 tab po daily AMLODIPINE BESYLATE 5 MG ORAL TABS 386599 AMLODIPINE BESYLATE Inactive TOPIRAMATE 25 MG TABS 1 tab po BID TOPIRAMATE 25 MG TABS 340244 TOPIRAMATE Inactive PREDNISONE 20 MG TAB 1 tablet twice daily for 2 days, then 1 tablet once daily for 2 days PREDNISONE 20 MG TAB 843039 PREDNISONE Inactive PREDNISONE 20 MG TAB 1 tab twice daily for 3 day, then one daily for three days PREDNISONE 20 MG TAB 570898 PREDNISONE Inactive AZITHROMYCIN 250 MG TABS 2 po qd x 1 day, then 1 po qd x 4 days AZITHROMYCIN 250 MG TABS 8572317 AZITHROMYCIN Inactive AZITHROMYCIN 250 MG TABS 2 po qd x 1 day, then 1 po qd x 4 days AZITHROMYCIN 250 MG TABS 3483342 AZITHROMYCIN Inactive PREDNISONE 20 MG TAB 2 po qd x 5 days PREDNISONE 20 MG TAB 119509 PREDNISONE Inactive Vital Signs Date Name Value [...] Magnesium - Chemistry cholesterol, serum 180 mg/dL 610-562 2340/08/08 triglyceride, serum, fasting 92 mg/dL 30-200 HDL cholesterol, serum 66 mg/dL 32-96 LDL cholesterol, serum 96 mg/dL 0-130 sodium, serum 142 mmol/L 215-789 6400/08/08 carbon dioxide, venous blood 27.4 mmol/L 21.0-32.0 [...] 10.0-20.0 Encounters Code Encounter Date Provider Facility CPT-03708 Level 3 Est. Patient 09:58:58 CDT Harinder Cr [facility] CPT-15687 Level 3 Est. Patient 12:37:21 CDT Harinder Hernandez [facility] CPT-03814 Level 3 Est. Patient 18:37:17 CDT Harinder Cr [facility] CPT-00284 Level 4 Est. Patient 11:15:54 CDT Nettie Newberry APRN [facility] CPT-76735 Level 3 Est. Patient 16:42:24 CDT Harinder Cr [facility] CPT-62511 Level 3 Est. Patient 15:03:36 CDT Harinder Hernandez [facility] CPT-51653 Level 3 Est. Patient 15:03:20 CDT Harinder Cr [facility] CPT-38624 Level 3 Est. Patient 12:14:34 CDT Harinder Hernandez [facility] CPT-21528 Level 3 Est. Patient 13:47:15 CDT Harinder Cr [facility] CPT-95146 Level 3 Est. Patient 14:08:24 CDT Harinder Hernandez [facility] CPT-89886 Level 3 Est. Patient 10:07:15 CDT Harinder Cr [facility] CPT-12816 Level 3 Est. Patient 10:06:59 CDT Harinder Hernandez [facility] CPT-34325 Level 3 Est. Patient 15:53:[address] [facility] CPT-23470 Level 3 Est. Patient 17:19:04 CDT Harinder Hernandez [facility] CPT-14960 Level 3 Est. Patient 11:13:01 CDT Harinder Hernandez [facility] CPT-01485 Level 3 Est. Patient 09:03:58 CDT Harinder Hernandez [facility] CPT-93961 Level 3 Est. Patient 14:46:45 TRAFFIC ENUMERATOR Harinder Hernandez [facility] CPT-81741 Level 3 Est. Patient 09:35:49 TRAFFIC ENUMERATOR Harinder Hernandez [facility] CPT-67132 Level 3 Est. Patient 09:29:37 TRAFFIC ENUMERATOR Harinder Hernandez [facility] CPT-27993 Level 3 Est. Patient 15:51:07 CDT Harinder Hernandez [facility] CPT-21240 Level 3 Est. Patient 18:13:13 CDT Harinder Cr [facility] CPT-25107 Level 3 Est. Patient 10:44:19 CDT Harinder Cr [facility] CPT-98036 Level 4 Est. Patient 10:07:19 TRAFFIC ENUMERATOR Harinder Cr [facility] CPT-32477 Level 3 Est. Patient 15:59:32 TRAFFIC ENUMERATOR Harinder Cr [facility] Procedures Code Procedure Name Date Entry Date Standard Description CPT-29928 Port a cath flush 12:00:13 TRAFFIC ENUMERATOR CPT-TCMM Transitional Care Mgmt-Moderate 11:20:16 TRAFFIC ENUMERATOR CPT-10792 First Vx - Ix admin for Medicare patients 17:35:15 CDT CPT-91443 Fluzone Preservative Free Intramuscular Suspension 17:35 :15 CDT CPT-26764 Microalbumin - LAB USE ONLY 11:52:05 CDT CPT-TCMM Transitional Care Mgmt-Moderate 11:33:57 CDT CPT-30332 No Charge Offi Visit 14:11:29 CDT CPT-24888 Magnesium - LAB USE ONLY 10:45:44 CDT CPT-94866 Lipid - LAB USE ONLY 10:45:44 CDT CPT-57214 CBC - LAB USE ONLY 10:45:44 CDT CPT-38692 Venipuncture Draw Fee 10:45:43 CDT CPT-53544 Venipuncture Draw Fee 18:21:27 CDT CPT-JTINJ Asp/Joint Injection 18:38:04 CDT CPT-26338 Immunization Each Additional Inj 17:38:04 CDT CPT-21814 Immunization Single Admin 17:38:04 CDT CPT-85487 Prevnar 13 17:38:04 CDT CPT-07231 Fluzone Quadrivalent preservative free (>=3yrs.) 17:38: 04 CDT CPT-19619 No Charge Offi Visit 11:14:03 CDT CPT-13042 Chest 2V Frontal and Lat 14:00:18 CDT CPT-OV Office Visit 16:10:28 CDT CPT-JTINJ Asp/Joint Injection 09:03:57 CDT CPT-Cryo Cryotherapy 09:35:49 TRAFFIC ENUMERATOR CPT-JTINJ Asp/Joint Injection 09:34:45 TRAFFIC ENUMERATOR CPT-J2930 Solu Medrol 125 mg (Methyl Prednisolone Sodium Succinate) 20:37:27 CDT CPT-56371 Abx/Therapy Injection 20:37:27 CDT CPT-79394 Port a cath flush 08:15:51 CDT CPT-56531 Port a cath flush 09:54:16 T CPT-65788 Port a cath flush 09:38:02 CDT CPT-30812 Port a cath flush 11:00:27 [facility]
--- OUTSIDE RECORDS SUMMARY | 2017-12-29 05:04 | XMS REPORT | Clinical Summary ---
Author Author Admin, QIE Organization [facility] [employer] Address Unknown Phone Unavailable Allergies, Adverse Reactions, [...] neoplasms of colon Pneumonia 486 Resolved Harinder Hrenandez DO Pneumonia , organism unspecified Bacteremia 790.7 [...] unspecified site Breast mass, right ICD-611.72 Inactive Haridner Hernandez DO Encounter for fitting and adjustment [...] then one daily for three days PREDNISONE 46903212517 Active Harinder Hernandez DO Active PREDNISONE 20 MG TAB 1 tablet twice daily for 2 days, then 1 tablet once daily for 2 days PREDNISONE 86592317845 No Longer Active Harinder Hernandez DO Active ASMANEX 120 METERED DOSES 220 MCG/INH INH AEPB 2 puffs orally twice daily MOMETASONE FUROATE 59685973473 Active Jeri Sosa RPT,RMA Active NIFEDIPINE ER 30 MG ORAL [id number] 1 daily NIFEDIPINE 71828431617 Active Tawnya Pardo MA Active TOPIRAMATE 25 MG TABS 1 tab po BID TOPIRAMATE 03752332670 No Longer Active Nettie Newberry APRN Active AMLODIPINE BESYLATE 5 MG ORAL TABS Take 1 tab po daily AMLODIPINE BESYLATE 98082299761 No Longer Active Nettie Newberry APRN Active MECLIZINE HCL 25 MG TAB 1 tablet three times daily for 3 days, then 1/2 tab three times daily for 3 days. MECLIZINE HCL 81932449069 No Longer Active Nettie Newberry APRN Active AMITRIPTYLINE HCL 25 MG ORAL TABS 1 q hs prn AMITRIPTYLINE HCL 18589361395 No Longer Active Nettie Newberry APRN Active DILAUDID 2 MG ORAL TABS Take 1/2 tab po every 4 hours as needed for pain 2014 HYDROMORPHONE HCL 58157573945 No Longer Active Nettie Newberry APRN Active CLOPIDOGREL BISULFATE 75 MG ORAL TABS 1 tab by mouth once daily CLOPIDOGREL BISULFATE 07433611060 Active Jeri Sosa RPT,RMA Active ATORVASTATIN CALCIUM 10 MG ORAL TABS 1 at bedtime ATORVASTATIN CALCIUM 49482258154 Active Jeri Sosa RPT,RMA Active LOVASTATIN 40 MG ORAL TABS Take 1 tab po every hs LOVASTATIN 64960375065 No Longer Active Harinder Hernandez DO Active PREDNISONE 20 MG TAB 2 tabs daily for 4 days, 1 tab daily for 4 days, 1/2 tab daily for 4 days PREDNISONE 69642597662 No Longer Active Harinder Hernandez DO Active LEVAQUIN 500 MG ORAL TABS Take 1 tab po daily x 8 days LEVOFLOXACIN 85518418988 No Longer Active Harinder Hernandez DO Active VENTOLIN HFA 108 (90 BASE) MCG/ACT AERS 2 -4 puffs four times a day PRN 2013 ALBUTEROL SULFATE 57933598597 No Longer Active Jeri Sosa RPT,RMA Active ACEBUTOLOL HCL 200 MG CAPS 1 cap in the morning and 2 caps in the evening ACEBUTOLOL HCL 73731276963 No Longer Active Harinder Hernandez DO Active CEFDINIR 300 MG ORAL CAPS take 1 cap po bid x 10 days CEFDINIR 85586641151 No Longer Active Harinder Hernandez DO Active LOVASTATIN 40 MG TABS 1 pill by mouth nightly for cholesterol LOVASTATIN 78420306153 No Longer Active Nettie Newberry APRN Active NITROSTAT 0.4 MG SUBL 1 tab under tongueas needed for chest pain ( may take 3 total, 5 min apart, then call 911) NITROGLYCERIN 49939223156 No Longer Active Nettie Newberry APRN Active POTASSIUM CHLORIDE CR 10 MEQ CPCR 1 capsule by mouth daily 02/14 POTASSIUM CHLORIDE 55306921976 No Longer Active Nettie Newberry APRN Active TESSALON PERLES 100 MG CAP 1 to 2 tablets by mouth 3 times daily as needed for cough BENZONATATE 96255455507 No Longer Active Nettie Newberry APRN Active THEOPHYLLINE ER 200 MG ORAL [id number] Take 1 tab every 12 hours THEOPHYLLINE 06944479229 Active Jeri Sosa RPT,RMA Active PREDNISONE 20 MG TAB 2 po qd x 5 days PREDNISONE 05497399844 No Longer Active Jae Morgan MD Active AZITHROMYCIN 250 MG TABS 2 po qd x 1 day, then 1 po qd x 4 days AZITHROMYCIN 57972986164 No Longer Active Jae Morgan MD Active PREDNISONE 20 MG TAB 1 tab twice daily for 3 day, then one daily for three days PREDNISONE 73722912813 No Longer Active Jae Morgan MD Active SINGULAIR 10 MG TABS 1 pill by mouth every evening for breathing. 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 NEURONTIN 300 MG CAP 1 cap by mouth three times daily for restless leg 06/22 GABAPENTIN 06908849808 No Longer Active Harinder Hernandez DO Active BENZONATATE 100 MG CAPS 1 cap po TID PRN BENZONATATE 22459568057 No Longer Active Harinder Hernandez DO Active MONTELUKAST SODIUM 10 MG TABS 1 tab po in the evening MONTELUKAST SODIUM 01723980986 No Longer Active Harinder Hernandez DO Active MUPIROCIN 2 % OINT apply to affected area BID x 14 days MUPIROCIN 50070070915 No Longer Active Harinder Hernandez DO Active TYLENOL EXTRA STRENGTH 500 MG TABS as needed ACETAMINOPHEN 57564124667 No Longer Active Harinder Hernandez DO Active PREDNISONE 10 MG TABS 1 tab po daily PREDNISONE 81818470464 No Longer Active Harinder Hernandez DO Active PREDNISONE 20 MG TAB 2 tabs daily for 4 days, 1 tab daily for 4 days, 1/2 tab daily for 4 days PREDNISONE 56844148208 No Longer Active Harinder Hernandez DO Active AZITHROMYCIN 250 MG TABS 2 po qd x 1 day, then 1 po qd x 4 days AZITHROMYCIN 27647404968 No Longer Active Harinder Hernandez DO Active PREDNISONE 20 MG TAB 3 tabs today, then 1 tab twice daily for 3 day, then one daily for three days PREDNISONE 05312965649 No Longer Active Harinder Hernandez DO Active NIFEDIAC CC 30 MG [id number] 1 tablet daily for raynaud's syndrome NIFEDIPINE 26233701729 No Longer Active Tawnya Pardo MA Active AMBIEN 10 MG TAB 1/2 tab by mouth at bedtime as needed for sleep ZOLPIDEM TARTRATE 32503416933 Active Harinder Hernandez DO Active CLONAZEPAM 1 MG TABS 1 tablet at bedtime for insomnia and restless legs 09/14 CLONAZEPAM 87058063626 Active Jeri Sosa RPT,RMA Active CLONAZEPAM 0.5 MG TABS 1 tab po daily CLONAZEPAM 44460532299 No Longer Active Harinder Hernandez DO Active PREDNISONE 10 MG TAB 1 tablet daily for COPD PREDNISONE 23986275637 Active Tawnya Pardo MA Active PROAIR HFA 108 (90 BASE) MCG/ACT AERS 2 puffs four times a day as needed 2012 ALBUTEROL SULFATE 76679611415 Active Tawnya Pardo MA Active FLOVENT HFA 110 MCG/ACT AERO 2 puffs inhaled b.i.d. FLUTICASONE PROPIONATE HFA 88149347287 Active Tawnya Pardo MA Active EPIPEN 0.3 MG/0.3ML URIEL DIRECTED EPINEPHRINE Active Jeri Sosa RPT,RMA Active ACIPHEX 20 MG TBEC 1 tab po daily RABEPRAZOLE SODIUM 60543772439 Active Tawnya Pardo MA Active CLONAZEPAM 0.5 MG TABS 1 tab po daily CLONAZEPAM 0.5 MG TABS 615401 CLONAZEPAM Inactive PREDNISONE 20 MG TAB 3 tabs today, then 1 tab twice daily for 3 day, then one daily for three days PREDNISONE 20 MG TAB 089738 PREDNISONE Inactive PREDNISONE 20 MG TAB 2 tabs daily for 4 days, 1 tab daily for 4 days, 1/2 tab daily for 4 days PREDNISONE 20 MG TAB 624078 PREDNISONE Inactive PREDNISONE 10 MG TABS 1 tab po daily PREDNISONE 10 MG TABS 651089 PREDNISONE Inactive TYLENOL EXTRA STRENGTH 500 MG TABS as needed TYLENOL EXTRA STRENGTH 500 MG TABS 407575 ACETAMINOPHEN Inactive MUPIROCIN 2 % OINT apply to affected area BID x 14 days MUPIROCIN 2 % OINT 913211 MUPIROCIN Inactive MONTELUKAST SODIUM 10 MG TABS 1 tab po in the evening MONTELUKAST SODIUM 10 MG TABS 20010818 MONTELUKAST SODIUM Inactive BENZONATATE 100 MG CAPS 1 cap po TID PRN BENZONATATE 100 MG CAPS 205977 BENZONATATE Inactive NEURONTIN 300 MG CAP 1 cap by mouth three times daily for restless leg 06/22 NEURONTIN 300 MG CAP 990156 GABAPENTIN Inactive LEVAQUIN 500 MG TAB 1 tablet by mouth daily LEVAQUIN 500 MG TAB 539081 LEVOFLOXACIN Inactive PREDNISONE 20 MG TAB 1 TID x 2 days, then 1 BID x 3 days, then 1 Daily x 3 days, then stop PREDNISONE 20 MG TAB 220295 PREDNISONE Inactive POTASSIUM CHLORIDE ER 10 MEQ CR-TABS take 1 tab po daily POTASSIUM CHLORIDE ER 10 MEQ CR-TABS POTASSIUM CHLORIDE Inactive PREDNISONE 20 MG TAB 1 tab twice daily for 3 day, then one daily for three days PREDNISONE 20 MG TAB 285050 PREDNISONE Inactive TESSALON PERLES 100 MG CAP 1 to 2 tablets by mouth 3 times daily as needed for cough TESSALON PERLES 100 MG CAP 856532 BENZONATATE Inactive POTASSIUM CHLORIDE CR 10 MEQ [...] nightly for cholesterol LOVASTATIN 40 MG TABS 716239 LOVASTATIN Inactive CEFDINIR 300 MG ORAL CAPS take 1 cap po bid x 10 days CEFDINIR 300 MG ORAL CAPS 671512 CEFDINIR Inactive ACEBUTOLOL HCL 200 MG CAPS 1 cap in the morning and 2 caps in the evening ACEBUTOLOL HCL 200 MG CAPS 078903 ACEBUTOLOL HCL Inactive VENTOLIN HFA 108 (90 BASE) MCG/ACT AERS 2 -4 puffs four times a day PRN 2013 VENTOLIN HFA 108 (90 BASE) MCG/ACT AERS ALBUTEROL SULFATE Inactive LEVAQUIN 500 MG ORAL TABS Take 1 tab po daily x 8 days LEVAQUIN 500 MG ORAL TABS 359670 LEVOFLOXACIN Inactive PREDNISONE 20 MG TAB 2 tabs daily for 4 days, 1 tab daily for 4 days, 1/2 tab daily for 4 days PREDNISONE 20 MG TAB 977318 PREDNISONE Inactive LOVASTATIN 40 MG ORAL TABS Take 1 tab po every hs LOVASTATIN 40 MG ORAL TABS 658126 LOVASTATIN Inactive DILAUDID 2 MG ORAL TABS Take 1/2 tab po every 4 hours as needed for pain 2014 DILAUDID 2 MG ORAL TABS 785519 HYDROMORPHONE HCL Inactive AMITRIPTYLINE HCL 25 MG ORAL TABS 1 q hs prn AMITRIPTYLINE HCL 25 MG ORAL TABS 931430 AMITRIPTYLINE HCL Inactive MECLIZINE HCL 25 MG TAB 1 tablet three times daily for 3 days, then 1/2 tab three times daily for 3 days. MECLIZINE HCL 25 MG TAB 151586 MECLIZINE HCL Inactive AMLODIPINE BESYLATE 5 MG ORAL TABS Take 1 tab po daily AMLODIPINE BESYLATE 5 MG ORAL TABS 434488 AMLODIPINE BESYLATE Inactive TOPIRAMATE 25 MG TABS 1 tab po BID TOPIRAMATE 25 MG TABS 976974 TOPIRAMATE Inactive PREDNISONE 20 MG TAB 1 tablet twice daily for 2 days, then 1 tablet once daily for 2 days PREDNISONE 20 MG TAB 328874 PREDNISONE Inactive AZITHROMYCIN 250 MG TABS 2 po qd x 1 day, then 1 po qd x 4 days AZITHROMYCIN 250 MG TABS 9588019 AZITHROMYCIN Inactive AZITHROMYCIN 250 MG TABS 2 po qd x 1 day, then 1 po qd x 4 days AZITHROMYCIN 250 MG TABS 4539241 AZITHROMYCIN Inactive PREDNISONE 20 MG TAB 2 po qd x 5 days PREDNISONE 20 MG TAB 039369 PREDNISONE Inactive Vital Signs Date Name Value [...] Panel - Chemistry sodium, serum 138 mmol/L 630-763 4508/09/24 potassium, serum 3.5 mmol/L 3.5-5.2 chloride, serum [...] 142-424 Encounters Code Encounter Date Provider Facility CPT-81294 Level 3 Est. Patient 09:58:58 CDT Harinder Cr [facility] [place] CPT-38926 Level 3 Est. Patient 12:37:21 CDT Harinder Cr [facility] [place] CPT-87303 Level 3 Est. Patient 18:37:17 CDT Harinder Cr [facility] [place] CPT-85763 Level 4 Est. Patient 11:15:54 CDT Nettie Rohith [facility] CPT-96279 Level 3 Est. Patient 16:42:24 CDT Harinder Cr [facility] [place] CPT-25864 Level 3 Est. Patient 15:03:36 CDT Harinder Cr [facility] [place] CPT-28135 Level 3 Est. Patient 15:03:20 CDT Harinder Cr [facility] [place] CPT-10443 Level 3 Est. Patient 12:14:34 CDT Harinder Cr [facility] CPT-91931 Level 3 Est. Patient 13:47:15 CDT Harinder Cr [facility] CPT-40940 Level 3 Est. Patient 14:08:24 CDT [facility] CPT-78985 Level 3 Est. Patient 10:07:15 CDT Harinder Hernandez [facility] CPT-04779 Level 3 Est. Patient 10:06:59 CDT Harinder Hernandez [facility] CPT-20783 Level 3 Est. Patient 15:53:29 CDT Jae Morgan MD [facility] CPT-43823 Level 3 Est. Patient 17:19:04 CDT Harinder Hernandez [facility] CPT-47038 Level 3 Est. Patient 11:13:01 CDT Harinder Hernandez [facility] CPT-34415 Level 3 Est. Patient 09:03:58 CDT Harinder Hernandez [facility] CPT-13441 Level 3 Est. Patient 14:46:45 NET MENDER Harinder Hernandez [facility] CPT-87791 Level 3 Est. Patient 09:35:49 NET MENDER Harinder Hernandez [facility] CPT-94672 Level 3 Est. Patient 09:29:37 NET MENDER Harinder Hernandez [facility] CPT-27240 Level 3 Est. Patient 15:51:07 CDT Harinder Hernandez [facility] CPT-73272 Level 3 Est. Patient 18:13:13 CDT Harinder Hernandez [facility] CPT-43425 Level 3 Est. Patient 10:44:19 CDT Harinder Hernandez [facility] CPT-24933 Level 4 Est. Patient 10:07:19 NET MENDER Harinder Hernandez [facility] CPT-57209 Level 3 Est. Patient 15:59:32 NET MENDER Harinder Cr [facility] Procedures Code Procedure Name Date Entry Date Standard Description CPT-58754 Venipuncture Draw Fee 18:21:27 CDT CPT-JTINJ Asp/Joint Injection 18:38:04 CDT CPT-32598 Immunization Each Additional Inj 17:38:04 CDT CPT-23738 Immunization Single Admin 17:38:04 CDT CPT-54870 Prevnar 13 17:38:04 CDT CPT-59604 Fluzone Quadrivalent preservative free (>=3yrs.) 17:38: 04 CDT CPT-01245 No Charge Offi Visit 11:14:03 CDT CPT-12150 Chest 2V Frontal and Lat 14:00:18 CDT CPT-OV Office Visit 16:10:28 CDT CPT-JTINJ Asp/Joint Injection 09:03:57 CDT CPT-Cryo Cryotherapy 09:35:49 NET MENDER CPT-JTINJ Asp/Joint Injection 09:34:45 NET MENDER CPT-J2930 Solu Medrol 125 mg (Methyl Prednisolone Sodium Succinate) 20:37:27 CDT CPT-98703 Abx/Therapy Injection 20:37:27 CDT CPT-12113 Port a cath flush 08:15:51 CDT CPT-67884 Port a cath flush 09:54:16 CDT CPT-20423 Port a cath flush 09:38:02 CDT CPT-76762 Port a cath flush 11:00:27 NET MENDER
--- OUTSIDE RECORDS SUMMARY | 2017-12-29 05:06 | XMS REPORT | Clinical Summary ---
Author Author Admin, QIE Organization [facility] Address Unknown Phone Unavailable Allergies, Adverse Reactions, [...] adjustment of vascular catheter V58.81 Resolved Harinder Henrandez DO Encounter for fitting and adjustment of [...] RELEASE 12 HOUR 1 po BID THEOPHYLLINE 86289658347 Active Kortney Mccain Active POTASSIUM CHLORIDE ER 20 MEQ ORAL CR-TABS 1 po q day POTASSIUM CHLORIDE 64599542950 Active Kortney Mccain Active POTASSIUM CHLORIDE 20 MEQ ORAL PACK 1 tab po q day POTASSIUM CHLORIDE 22864536480 No Longer Active Kortney Mccain Active POTASSIUM CHLORIDE CR 10 MEQ CPCR 1 capsule BID POTASSIUM CHLORIDE 31901745125 No Longer Active Kortney Mccain Active LASIX 20 MG TAB 1 tablet by mouth every morning FUROSEMIDE 49198179320 No Longer Active Kortney Mccain Active SPIRONOLACTONE 25 MG TAB 1 tablet by mouth daily SPIRONOLACTONE 98919063154 Active Kortney Mccain Active FLUOXETINE HCL 10 MG ORAL CAPS 1 po qd for depression/anxiety FLUOXETINE HCL 65996113474 Active Harinder Hernandez DO Active VOLTAREN 1 % GEL apply q 6-8 hour to left arm as needed for pain DICLOFENAC SODIUM 81083055608 Active Kortney Mccain Active ALBUTEROL SULFATE 0.083 % NEBU SOLN 1 vial neb q 4hrs for severe asthma. 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 FLUTICASONE PROPIONATE HFA 34173463096 Active Harinder Hernandez DO Active EPIPEN 2-BRUNA 0.3 MG/0.3ML INJ SOAJ 1 INJ NEEDED EPINEPHRINE 11604695293 Active Harinder Hernandez DO Active PREDNISONE 20 MG TAB 1 tab twice daily for 3 day, then one daily for three days PREDNISONE 70569411853 No Longer Active Harinder Hernandez DO Active PREDNISONE 20 MG TAB 1 tablet twice daily for 2 days, then 1 tablet once daily for 2 days PREDNISONE 85847322412 No Longer Active Harinder Hernandez DO Active ASMANEX 120 METERED DOSES 220 MCG/INH INH AEPB 2 puffs orally twice daily MOMETASONE FUROATE 41204169022 Active Jeri Sosa LPN Active TOPIRAMATE 25 MG TABS 1 tab po BID TOPIRAMATE 31534404926 No Longer Active Nettie Newberry MAHENDRA Active AMLODIPINE BESYLATE 5 MG ORAL TABS Take 1 tab po daily AMLODIPINE BESYLATE 94126276657 No Longer Active Nettie Newberry MAHENDRA Active MECLIZINE HCL 25 MG TAB 1 tablet three times daily for 3 days, then 1/2 tab three times daily for 3 days. MECLIZINE HCL 45811457200 No Longer Active Nettie Newberry MAHENDRA Active AMITRIPTYLINE HCL 25 MG ORAL TABS 1 q hs prn AMITRIPTYLINE HCL 32416149905 No Longer Active Nettie Newberry MAHENDRA Active DILAUDID 2 MG ORAL TABS Take 1/2 tab po every 4 hours as needed for pain 2014 HYDROMORPHONE HCL 26544080233 No Longer Active Nettie Newberry MAHENDRA Active CLOPIDOGREL BISULFATE 75 MG ORAL TABS 1 tab by mouth once daily CLOPIDOGREL BISULFATE 91742541436 Active Harinder Hernandez DO Active ATORVASTATIN CALCIUM 10 MG ORAL TABS 1 at bedtime ATORVASTATIN CALCIUM 51662816572 Active Kortney Mccain Active LOVASTATIN 40 MG ORAL TABS Take 1 tab po every hs LOVASTATIN 62598049369 No Longer Active Harinder Hernandez DO Active PREDNISONE 20 MG TAB 2 tabs daily for 4 days, 1 tab daily for 4 days, 1/2 tab daily for 4 days PREDNISONE 53284383121 No Longer Active Harinder Hernandez DO Active LEVAQUIN 500 MG ORAL TABS Take 1 tab po daily x 8 days LEVOFLOXACIN 96524483456 No Longer Active Harinder Hernandez DO Active VENTOLIN HFA 108 (90 BASE) MCG/ACT AERS 2 -4 puffs four times a day PRN 2013 ALBUTEROL SULFATE 72862466854 No Longer Active Jeri Sosa LPN Active ACEBUTOLOL HCL 200 MG CAPS 1 cap in the morning and 2 caps in the evening ACEBUTOLOL HCL 82962604533 No Longer Active Harinder Hernandez DO Active CEFDINIR 300 MG ORAL CAPS take 1 cap po bid x 10 days CEFDINIR 26168527624 No Longer Active Harinder Hernandez DO Active LOVASTATIN 40 MG TABS 1 pill by mouth nightly for cholesterol LOVASTATIN 61603811031 No Longer Active Nettie Newberry APRN Active NITROSTAT 0.4 MG SUBL 1 tab under tongueas needed for chest pain ( may take 3 total, 5 min apart, then call 911) NITROGLYCERIN 45488943745 No Longer Active Nettie Newberry APRN Active POTASSIUM CHLORIDE CR 10 MEQ CPCR 1 capsule by mouth daily 02/14 POTASSIUM CHLORIDE 98433321481 No Longer Active Nettie Newberry APRN Active TESSALON PERLES 100 MG CAP 1 to 2 tablets by mouth 3 times daily as needed for cough BENZONATATE 27372002342 No Longer Active Nettie Newberry APRN Active PREDNISONE 20 MG TAB 2 po qd x 5 days PREDNISONE 47833629242 No Longer Active Jae Morgan MD Active AZITHROMYCIN 250 MG TABS 2 po qd x 1 day, then 1 po qd x 4 days AZITHROMYCIN 34766045692 No Longer Active Jae Morgan MD Active PREDNISONE 20 MG TAB 1 tab twice daily for 3 day, then one daily for three days PREDNISONE 76241390327 No Longer Active Jae Morgan MD Active SINGULAIR 10 MG TABS 1 pill by mouth every evening for breathing. MONTELUKAST SODIUM 49683226499 Active Kortney Mccain Active TYLENOL 325 MG TAB 3 by mouth q4h as needed ACETAMINOPHEN 13794822802 Active Harinder Hernandez DO Active POTASSIUM CHLORIDE ER 10 MEQ CR-TABS take 1 tab po daily POTASSIUM CHLORIDE 59202363500 No Longer Active Harinder Hernandez DO Active PREDNISONE 20 MG TAB 1 TID x 2 days, then 1 BID x 3 days, then 1 Daily x 3 days, then stop PREDNISONE 33355029337 No Longer Active John Montemayor APRN Active LEVAQUIN 500 MG TAB 1 tablet by mouth daily LEVOFLOXACIN 71566592503 No Longer Active Jillkvng Cuelloshai MCCRAY Active NEURONTIN 300 MG CAP 1 cap by mouth three times daily for restless leg 06/22 GABAPENTIN 87953809228 No Longer Active Harinder Hernandez DO Active BENZONATATE 100 MG CAPS 1 cap po TID PRN BENZONATATE 25045082839 No Longer Active Harinder Hernandez DO Active MONTELUKAST SODIUM 10 MG TABS 1 tab po in the evening MONTELUKAST SODIUM 62685860773 No Longer Active Harinder Hernandez DO Active MUPIROCIN 2 % OINT apply to affected area BID x 14 days MUPIROCIN 85578306000 No Longer Active Harinder Hernandez DO Active TYLENOL EXTRA STRENGTH 500 MG TABS as needed ACETAMINOPHEN 43646619576 No Longer Active Harinder Hernandez DO Active PREDNISONE 10 MG TABS 1 tab po daily PREDNISONE 04018481816 No Longer Active Harinder Hernandez DO Active PREDNISONE 20 MG TAB 2 tabs daily for 4 days, 1 tab daily for 4 days, 1/2 tab daily for 4 days PREDNISONE 08658004089 No Longer Active Harinder Hernandez DO Active AZITHROMYCIN 250 MG TABS 2 po qd x 1 day, then 1 po qd x 4 days AZITHROMYCIN 25800969831 No Longer Active Harinder Hernandez DO Active PREDNISONE 20 MG TAB 3 tabs today, then 1 tab twice daily for 3 day, then one daily for three days PREDNISONE 94971888396 No Longer Active Harinder Hernandez DO Active NIFEDIAC CC 30 MG [id number] 1 tablet daily for raynaud's syndrome NIFEDIPINE 26351657996 No Longer Active Tawnya Pardo MA Active AMBIEN 10 MG TAB 1/2 tab by mouth at bedtime as needed for sleep ZOLPIDEM TARTRATE 82609895423 Active Kortney Mccain Active CLONAZEPAM 1 MG TABS 1 tablet at bedtime for insomnia and restless legs 09/14 CLONAZEPAM 49604166132 Active Harinder Hernandez DO Active CLONAZEPAM 0.5 MG TABS 1 tab po daily CLONAZEPAM 77478494672 No Longer Active Harinder Cr David Active PREDNISONE 10 MG TAB 1 tablet daily for COPD PREDNISONE 93146160943 Active Kortney Mccain Active PROAIR HFA 108 (90 BASE) MCG/ACT AERS 2 puffs four times a day as needed 2012 ALBUTEROL SULFATE 47623722064 Active Harinder Hernandez DO Active FLOVENT HFA 110 MCG/ACT AERO 2 puffs inhaled b.i.d. FLUTICASONE PROPIONATE HFA 15452646055 Active Kortney Mccain Active ACIPHEX 20 MG TBEC 1 tab po daily RABEPRAZOLE SODIUM 16194342799 Active Kaylah Newberry Active CLONAZEPAM 0.5 MG TABS 1 tab po daily CLONAZEPAM 0.5 MG TABS 393136 CLONAZEPAM Inactive PREDNISONE 20 MG TAB 3 tabs today, then 1 tab twice daily for 3 day, then one daily for three days PREDNISONE 20 MG TAB 753844 PREDNISONE Inactive PREDNISONE 20 MG TAB 2 tabs daily for 4 days, 1 tab daily for 4 days, 1/2 tab daily for 4 days PREDNISONE 20 MG TAB 163634 PREDNISONE Inactive PREDNISONE 10 MG TABS 1 tab po daily PREDNISONE 10 MG TABS 059412 PREDNISONE Inactive TYLENOL EXTRA STRENGTH 500 MG TABS as needed TYLENOL EXTRA STRENGTH 500 MG TABS 530870 ACETAMINOPHEN Inactive MUPIROCIN 2 % OINT apply to affected area BID x 14 days MUPIROCIN 2 % OINT 327415 MUPIROCIN Inactive MONTELUKAST SODIUM 10 MG TABS 1 tab po in the evening MONTELUKAST SODIUM 10 MG TABS 20010818 MONTELUKAST SODIUM Inactive BENZONATATE 100 MG CAPS 1 cap po TID PRN BENZONATATE 100 MG CAPS 749911 BENZONATATE Inactive NEURONTIN 300 MG CAP 1 cap by mouth three times daily for restless leg 06/22 NEURONTIN 300 MG CAP 609184 GABAPENTIN Inactive LEVAQUIN 500 MG TAB 1 tablet by mouth daily LEVAQUIN 500 MG TAB 320746 LEVOFLOXACIN Inactive PREDNISONE 20 MG TAB 1 TID x 2 days, then 1 BID x 3 days, then 1 Daily x 3 days, then stop PREDNISONE 20 MG TAB 471966 PREDNISONE Inactive POTASSIUM CHLORIDE ER 10 MEQ CR-TABS take 1 tab po daily POTASSIUM CHLORIDE ER 10 MEQ CR-TABS POTASSIUM CHLORIDE Inactive PREDNISONE 20 MG TAB 1 tab twice daily for 3 day, then one daily for three days PREDNISONE 20 MG TAB 636479 PREDNISONE Inactive TESSALON PERLES 100 MG CAP 1 to 2 tablets by mouth 3 times daily as needed for cough TESSALON PERLES 100 MG CAP 330680 BENZONATATE Inactive POTASSIUM CHLORIDE CR 10 MEQ CPCR 1 capsule by mouth daily 02/14 POTASSIUM CHLORIDE CR 10 MEQ CPCR POTASSIUM CHLORIDE Inactive NITROSTAT 0.4 MG SUBL 1 tab under tongueas needed for chest pain ( may take 3 total, 5 min apart, then call 911) NITROSTAT 0.4 MG SUBL 030219 NITROGLYCERIN Inactive LOVASTATIN 40 MG TABS 1 pill by mouth nightly for cholesterol LOVASTATIN 40 MG TABS 795010 LOVASTATIN Inactive CEFDINIR 300 MG ORAL CAPS take 1 cap po bid x 10 days CEFDINIR 300 MG ORAL CAPS 040514 CEFDINIR Inactive ACEBUTOLOL HCL 200 MG CAPS 1 cap in the morning and 2 caps in the evening ACEBUTOLOL HCL 200 MG CAPS 802548 ACEBUTOLOL HCL Inactive VENTOLIN HFA 108 (90 BASE) MCG/ACT AERS 2 -4 puffs four times a day PRN 2013 VENTOLIN HFA 108 (90 BASE) MCG/ACT AERS ALBUTEROL SULFATE Inactive LEVAQUIN 500 MG ORAL TABS Take 1 tab po daily x 8 days LEVAQUIN 500 MG ORAL TABS 936514 LEVOFLOXACIN Inactive PREDNISONE 20 MG TAB 2 tabs daily for 4 days, 1 tab daily for 4 days, 1/2 tab daily for 4 days PREDNISONE 20 MG TAB 802972 PREDNISONE Inactive LOVASTATIN 40 MG ORAL TABS Take 1 tab po every hs LOVASTATIN 40 MG ORAL TABS 886135 LOVASTATIN Inactive DILAUDID 2 MG ORAL TABS Take 1/2 tab po every 4 hours as needed for pain 2014 DILAUDID 2 MG ORAL TABS 418779 HYDROMORPHONE HCL Inactive AMITRIPTYLINE HCL 25 MG ORAL TABS 1 q hs prn AMITRIPTYLINE HCL 25 MG ORAL TABS 093361 AMITRIPTYLINE HCL Inactive MECLIZINE HCL 25 MG TAB 1 tablet three times daily for 3 days, then 1/2 tab three times daily for 3 days. MECLIZINE HCL 25 MG TAB 755049 MECLIZINE HCL Inactive AMLODIPINE BESYLATE 5 MG ORAL TABS Take 1 tab po daily AMLODIPINE BESYLATE 5 MG ORAL TABS 426210 AMLODIPINE BESYLATE Inactive TOPIRAMATE 25 MG TABS 1 tab po BID TOPIRAMATE 25 MG TABS 424281 TOPIRAMATE Inactive PREDNISONE 20 MG TAB 1 tablet twice daily for 2 days, then 1 tablet once daily for 2 days PREDNISONE 20 MG TAB 150898 PREDNISONE Inactive PREDNISONE 20 MG TAB 1 tab twice daily for 3 day, then one daily for three days PREDNISONE 20 MG TAB 652205 PREDNISONE Inactive NIFEDIPINE ER 30 MG ORAL [id number] 1 daily NIFEDIPINE ER 30 MG ORAL [id number] NIFEDIPINE Inactive AMLODIPINE BESYLATE 5 MG TABS 1 tablet by mouth daily AMLODIPINE BESYLATE 5 MG TABS 517252 AMLODIPINE BESYLATE Inactive LASIX 20 MG TAB 1 tablet by mouth every morning LASIX 20 MG TAB 188132 FUROSEMIDE Inactive POTASSIUM CHLORIDE CR 10 MEQ CPCR 1 capsule BID POTASSIUM CHLORIDE CR 10 MEQ CPCR POTASSIUM CHLORIDE Inactive POTASSIUM CHLORIDE 20 MEQ ORAL PACK 1 tab po q day POTASSIUM CHLORIDE 20 MEQ ORAL PACK 4444997 POTASSIUM CHLORIDE Inactive AZITHROMYCIN 250 MG TABS 2 po qd x 1 day, then 1 po qd x 4 days AZITHROMYCIN 250 MG TABS 290735 AZITHROMYCIN Inactive AZITHROMYCIN 250 MG TABS 2 po qd x 1 day, then 1 po qd x 4 days AZITHROMYCIN 250 MG TABS 074062 AZITHROMYCIN Inactive PREDNISONE 20 MG TAB 2 po qd x 5 days PREDNISONE 20 MG TAB 441448 PREDNISONE Inactive Vital Signs Date Name Value [...] Panel - Chemistry sodium, serum 137 mmol/L 660-068 9764/01/03 potassium, serum 3.4 mmol/L 3.5-5.2 chloride, serum 102 mmol/L 98-107 carbon dioxide, venous blood 29.2 mmol/L 21.0-32.0 blood glucose 87 mg/dL 65-110 calcium, serum 8.5 mg/dL 8.5-10.1 urea nitrogen, blood 8 mg/dL 7-18 creatinine, serum 0.82 mg/dL 0.55-1.30 sodium, serum 140 mmol/L 469-832 6751/07/13 potassium, serum 3.2 mmol/L 3.5-5.2 chloride, serum 103 mmol/L 98-107 carbon dioxide, venous blood 26.9 mmol/L 21.0-32.0 blood glucose 93 mg/dL 65-110 calcium, serum 9.2 mg/dL 8.5-10.1 urea nitrogen, blood 13 mg/dL 7-18 creatinine, serum 0.84 mg/dL 0.60-1.30 sodium, serum 140 mmol/L 429-144 3730/08/21 potassium, serum 3.8 mmol/L 3.5-5.2 chloride, serum [...] ... - Chemistry sodium, serum 141 mmol/L 556-300 0965/08/07 carbon dioxide, venous blood 34.0 mmol/L 21.0-32.0 [...] 1.40 mg/dL 0.00-1.00 cholesterol, serum 192 mg/dL 887-026 2050/10/19 triglyceride, serum, fasting 71 mg/dL 30-200 HDL cholesterol, serum 72 mg/dL 32-60 LDL cholesterol, serum 106 mg/dL 0-130 Lab Report: THEOPHYLLINE - Toxicology theophylline level, serum 3.1 ug/mL 10.0-20.0 Encounters Code Encounter Date Provider Facility CPT-88544 Level 4 Est. Patient 14:45:25 CDT Harinder Cr [facility] CPT-07669 Level 4 Est. Patient 09:15:13 CDT Harinder Hernandez [facility] CPT-47442 Level 3 Est. Patient 11:51:58 CDT Harinder Cr [facility] CPT-31794 Level 3 Est. Patient 11:30:05 CDT Harinder Cr [facility] CPT-86593 Level 4 Est. Patient 10:19:23 CDT Harinder Cr [facility] CPT-10888 Level 3 Est. Patient 09:58:58 CDT Harinder Hernandez [facility] CPT-59094 Level 3 Est. Patient 12:37:21 CDT Harinder Hernandez [facility] CPT-25402 Level 3 Est. Patient 18:37:17 CDT Harinder Cr [facility] CPT-41550 Level 4 Est. Patient 11:15:54 CDT Nettieog Newberry APRN [facility] CPT-54993 Level 3 Est. Patient 16:42:24 CDT Harinder Cr [facility] CPT-39742 Level 3 Est. Patient 15:03:36 CDT Harinder Shaye David [facility] CPT-33061 Level 3 Est. Patient 15:03:20 CDT Harinder Cr [facility] CPT-26246 Level 3 Est. Patient 12:14:34 CDT Harinder Shaye Hernandez [facility] CPT-87242 Level 3 Est. Patient 13:47:15 CDT Harinder Shaye [facility] CPT-36775 Level 3 Est. Patient 14:08:24 CDT Harinder Shaye David [facility] CPT-25211 Level 3 Est. Patient 10:07:15 CDT Harinder Shaye David [facility] CPT-44325 Level 3 Est. Patient 10:06:59 CDT Harinder Shaye David [facility] CPT-33547 Level 3 Est. Patient 15:53:29 CDT Jae Morgan MD [facility] CPT-64483 Level 3 Est. Patient 17:19:04 CDT Harinder Cr David [facility] CPT-31249 Level 3 Est. Patient 11:13:01 CDT Harinder Cr [facility] CPT-72429 Level 3 Est. Patient 09:03:58 CDT Harinder Hernandez [facility] CPT-07138 Level 3 Est. Patient 14:46:45 CONFIGURATION TECHNICIAN Harinder Hernandez [facility] CPT-17878 Level 3 Est. Patient 09:35:49 CONFIGURATION TECHNICIAN Harinder Hernandez [facility] CPT-55024 Level 3 Est. Patient 09:29:37 CONFIGURATION TECHNICIAN Harinder Hernandez [facility] CPT-97624 Level 3 Est. Patient 15:51:07 CDT Harinder Hernandez [facility] CPT-90827 Level 3 Est. Patient 18:13:13 CDT Harinder Hernandez [facility] CPT-73402 Level 3 Est. Patient 10:44:19 CDT Harinder Hernandez [facility] CPT-39796 Level 4 Est. Patient 10:07:19 CONFIGURATION TECHNICIAN Harinedr Hernandez [facility] CPT-57603 Level 3 Est. Patient 15:59:32 CONFIGURATION TECHNICIAN Harinder Cr [facility] Procedures Code Procedure Name Date Entry Date Standard Description CPT-33402 Abd compl w upright - XRAY USE ONLY 14:48:09 CDT 02/18 CPT-00620 Port a cath flush 13:46:05 CDT CPT-82367 Hip, complete, 2-3 views - XRAY USE ONLY 10:28:40 CDT CPT-35481 BMP - LAB USE ONLY 16:45:09 CONFIGURATION TECHNICIAN CPT-56418 Port a cath flush 12:00:13 CONFIGURATION TECHNICIAN CPT-TCMM Transitional Care Mgmt-Moderate 11:20:16 CONFIGURATION TECHNICIAN CPT-74773 First Vx - Ix admin for Medicare patients 17:35:15 CDT CPT-15708 Fluzone Preservative Free Intramuscular Suspension 17:35 :15 CDT CPT-92215 Microalbumin - LAB USE ONLY 11:52:05 CDT CPT-TCMM Transitional Care Mgmt-Moderate 11:33:57 CDT CPT-69743 No Charge Offi Visit 14:11:29 CDT CPT-58189 Magnesium - LAB USE ONLY 10:45:44 CDT CPT-66205 Lipid - LAB USE ONLY 10:45:44 CDT CPT-09876 CBC - LAB USE ONLY 10:45:44 CDT CPT-35787 Venipuncture Draw Fee 10:45:43 CDT CPT-54573 Venipuncture Draw Fee 18:21:27 CDT CPT-JTINJ Asp/Joint Injection 18:38:04 CDT CPT-52718 Immunization Each Additional Inj 17:38:04 CDT CPT-95486 Immunization Single Admin 17:38:04 CDT CPT-29714 Prevnar 13 17:38:04 CDT CPT-65639 Fluzone Quadrivalent preservative free (>=3yrs.) 17:38: 04 CDT CPT-70726 No Charge Offi Visit 11:14:03 CDT CPT-41106 Chest 2V Frontal and Lat 14:00:18 CDT CPT-OV Office Visit 16:10:28 CDT CPT-JTINJ Asp/Joint Injection 09:03:57 CDT CPT-Cryo Cryotherapy 09:35:49 CONFIGURATION TECHNICIAN CPT-JTINJ Asp/Joint Injection 09:34:45 CONFIGURATION TECHNICIAN CPT-J2930 Solu Medrol 125 mg (Methyl Prednisolone Sodium Succinate) 20:37:27 CDT CPT-04413 Abx/Therapy Injection 20:37:27 CDT CPT-01764 Port a cath flush 08:15:51 CDT CPT-49127 Port a cath flush 09:54:16 CDT CPT-16366 Port a cath flush 09:38:02 CDT CPT-88492 Port a cath flush 11:00:27 CONFIGURATION TECHNICIAN
--- OUTSIDE RECORDS SUMMARY | 2017-12-29 05:07 | XMS REPORT | Clinical Summary ---
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 NIFEDIPINE 91204265906 Active Harinder Hernandez DO Active AMLODIPINE BESYLATE 5 MG TABS 1 tablet by mouth daily AMLODIPINE BESYLATE 79899198248 No Longer Active Harinder Hernandez DO Active TOPAMAX 25 MG ORAL TABS 1 tab po BID TOPIRAMATE 94148342544 Active Kortney Mccain Active FLUTICASONE PROPIONATE 50 MCG/ACT SUSP 2 sprays per nostril daily PRN Allergies FLUTICASONE PROPIONATE 33295343421 Active Kortney Mccain Active NIFEDIPINE ER 30 MG ORAL [id number] 1 daily NIFEDIPINE 14216923644 No Longer Active Harinder Hernandez DO Active POTASSIUM CHLORIDE 20 MEQ ORAL PACK Take 1 tablet by mouth daily POTASSIUM CHLORIDE 05109863409 Prince Pimentel Active FLOVENT HFA 110 MCG/ACT AERO 2 puffs inhaled b.i.d. FLUTICASONE PROPIONATE HFA 47233558781 Active Harinder Hernandez DO Active POTASSIUM CHLORIDE CR 10 MEQ CPCR 1 capsule by mouth daily POTASSIUM CHLORIDE 39244910755 Active Harinder Hernandez DO Active EPIPEN 2-BRUNA 0.3 MG/0.3ML INJ SOAJ 1 INJ NEEDED EPINEPHRINE 29312665020 Active Harinder Hernandez DO Active PREDNISONE 20 MG TAB 1 tab twice daily for 3 day, then one daily for three days PREDNISONE 13347866742 No Longer Active Harinder Hernandez DO Active PREDNISONE 20 MG TAB 1 tablet twice daily for 2 days, then 1 tablet once daily for 2 days PREDNISONE 90174324179 No Longer Active Harinder Hernandez DO Active ASMANEX 120 METERED DOSES 220 MCG/INH INH AEPB 2 puffs orally twice daily MOMETASONE FUROATE 21409453972 Active Jeri Sosa RPT,RMA Active TOPIRAMATE 25 MG TABS 1 tab po BID TOPIRAMATE 48049645926 No Longer Active Nettie Newberry APRN Active AMLODIPINE BESYLATE 5 MG ORAL TABS Take 1 tab po daily AMLODIPINE BESYLATE 44510876574 No Longer Active Nettie Newberry APRN Active MECLIZINE HCL 25 MG TAB 1 tablet three times daily for 3 days, then 1/2 tab three times daily for 3 days. MECLIZINE HCL 62117476977 No Longer Active Nettie Newberry APRN Active AMITRIPTYLINE HCL 25 MG ORAL TABS 1 q hs prn AMITRIPTYLINE HCL 15773143129 No Longer Active Nettie Newberry APRN Active DILAUDID 2 MG ORAL TABS Take 1/2 tab po every 4 hours as needed for pain 2014 HYDROMORPHONE HCL 08382708225 No Longer Active Nettie Newberry APRN Active CLOPIDOGREL BISULFATE 75 MG ORAL TABS 1 tab by mouth once daily CLOPIDOGREL BISULFATE 42143613392 Active Harinder Hernandez DO Active ATORVASTATIN CALCIUM 10 MG ORAL TABS 1 at bedtime ATORVASTATIN CALCIUM 10663500064 Active Tawnya Pardo MA Active LOVASTATIN 40 MG ORAL TABS Take 1 tab po every hs LOVASTATIN 66192470138 No Longer Active Harinder W David DO Active PREDNISONE 20 MG TAB 2 tabs daily for 4 days, 1 tab daily for 4 days, 1/2 tab daily for 4 days PREDNISONE 20460212587 No Longer Active Harinder Hernandez DO Active LEVAQUIN 500 MG ORAL TABS Take 1 tab po daily x 8 days LEVOFLOXACIN 76389012676 No Longer Active Harinder Hernandez DO Active VENTOLIN HFA 108 (90 BASE) MCG/ACT AERS 2 -4 puffs four times a day PRN 2013 ALBUTEROL SULFATE 82256937771 No Longer Active Jeri Sosa RPT,RMA Active ACEBUTOLOL HCL 200 MG CAPS 1 cap in the morning and 2 caps in the evening ACEBUTOLOL HCL 78626723038 No Longer Active Harinder Hernandez DO Active CEFDINIR 300 MG ORAL CAPS take 1 cap po bid x 10 days CEFDINIR 46394463520 No Longer Active Harinder Hernandez DO Active LOVASTATIN 40 MG TABS 1 pill by mouth nightly for cholesterol LOVASTATIN 58327947876 No Longer Active Nettie Newberry APRN Active NITROSTAT 0.4 MG SUBL 1 tab under tongueas needed for chest pain ( may take 3 total, 5 min apart, then call 911) NITROGLYCERIN 51409082680 No Longer Active Nettie Newberry APRN Active POTASSIUM CHLORIDE CR 10 MEQ CPCR 1 capsule by mouth daily 02/14 POTASSIUM CHLORIDE 49166928554 No Longer Active Nettie Newberry APRN Active TESSALON PERLES 100 MG CAP 1 to 2 tablets by mouth 3 times daily as needed for cough BENZONATATE 48540875907 No Longer Active Nettie Newberry APRN Active THEOPHYLLINE ER 200 MG ORAL [id number] Take 1 tab every 12 hours THEOPHYLLINE 23125086468 Active Tawnya Pardo MA Active PREDNISONE 20 MG TAB 2 po qd x 5 days PREDNISONE 59426115099 No Longer Active Jae Morgan MD Active AZITHROMYCIN 250 MG TABS 2 po qd x 1 day, then 1 po qd x 4 days AZITHROMYCIN 73601376620 No Longer Active Jae Morgan MD Active PREDNISONE 20 MG TAB 1 tab twice daily for 3 day, then one daily for three days PREDNISONE 34326878394 No Longer Active Jae Morgan MD Active SINGULAIR 10 MG TABS 1 pill by mouth every evening for breathing. MONTELUKAST SODIUM 52322808063 Active Tawnya Pardo MA Active TYLENOL 325 MG TAB 3 by mouth q4h as needed ACETAMINOPHEN 99916062709 Active Harinder Hernandez DO Active POTASSIUM CHLORIDE ER 10 MEQ CR-TABS take 1 tab po daily POTASSIUM CHLORIDE 66971676222 No Longer Active Harinder Hernandez DO Active PREDNISONE 20 MG TAB 1 TID x 2 days, then 1 BID x 3 days, then 1 Daily x 3 days, then stop PREDNISONE 27108300846 No Longer Active Jillina Frazell [employer] Active LEVAQUIN 500 MG TAB 1 tablet by mouth daily LEVOFLOXACIN 48211350453 No Longer Active Jillina Frazell [employer] Active NEURONTIN 300 MG CAP 1 cap by mouth three times daily for restless leg 06/22 GABAPENTIN 37354562589 No Longer Active Harinder Hernandez DO Active BENZONATATE 100 MG CAPS 1 cap po TID PRN BENZONATATE 04375673530 No Longer Active Harinder Hernandez DO Active MONTELUKAST SODIUM 10 MG TABS 1 tab po in the evening MONTELUKAST SODIUM 04892699283 No Longer Active Harinder Hernandez DO Active MUPIROCIN 2 % OINT apply to affected area BID x 14 days MUPIROCIN 56563975908 No Longer Active Harinder Hernandez DO Active TYLENOL EXTRA STRENGTH 500 MG TABS as needed ACETAMINOPHEN 61983981310 No Longer Active Harinder Hernandez DO Active PREDNISONE 10 MG TABS 1 tab po daily PREDNISONE 80590497109 No Longer Active Harinder Hernandez DO Active PREDNISONE 20 MG TAB 2 tabs daily for 4 days, 1 tab daily for 4 days, 1/2 tab daily for 4 days PREDNISONE 68945709634 No Longer Active Harinder Hernandez DO Active AZITHROMYCIN 250 MG TABS 2 po qd x 1 day, then 1 po qd x 4 days AZITHROMYCIN 20586430962 No Longer Active Harinder Hernandez DO Active PREDNISONE 20 MG TAB 3 tabs today, then 1 tab twice daily for 3 day, then one daily for three days PREDNISONE 98949892465 No Longer Active Harinder Hernandez DO Active NIFEDIAC CC 30 MG [id number] 1 tablet daily for raynaud's syndrome NIFEDIPINE 88610404288 No Longer Active Tawnya Pardo MA Active AMBIEN 10 MG TAB 1/2 tab by mouth at bedtime as needed for sleep ZOLPIDEM TARTRATE 52637499880 Active Ciera Pimentel Active CLONAZEPAM 1 MG TABS 1 tablet at bedtime for insomnia and restless legs 09/14 CLONAZEPAM 21900540335 Active Harinder Hernandez DO Active CLONAZEPAM 0.5 MG TABS 1 tab po daily CLONAZEPAM 55400013027 No Longer Active Harinder Hernandez DO Active PREDNISONE 10 MG TAB 1 tablet daily for COPD PREDNISONE 38388046932 Active Ciera Pimentel Active PROAIR HFA 108 (90 BASE) MCG/ACT AERS 2 puffs four times a day as needed 2012 ALBUTEROL SULFATE 94888568890 Active Harinder Hernandez DO Active FLOVENT HFA 110 MCG/ACT AERO 2 puffs inhaled b.i.d. FLUTICASONE PROPIONATE HFA 82775306769 Active Kortney Mccain Active ACIPHEX 20 MG TBEC 1 tab po daily RABEPRAZOLE SODIUM 87177223068 Active Kaylah Newberry Active CLONAZEPAM 0.5 MG TABS 1 tab po daily CLONAZEPAM 0.5 MG TABS 461217 CLONAZEPAM Inactive PREDNISONE 20 MG TAB 3 tabs today, then 1 tab twice daily for 3 day, then one daily for three days PREDNISONE 20 MG TAB 493449 PREDNISONE Inactive PREDNISONE 20 MG TAB 2 tabs daily for 4 days, 1 tab daily for 4 days, 1/2 tab daily for 4 days PREDNISONE 20 MG TAB 478776 PREDNISONE Inactive PREDNISONE 10 MG TABS 1 tab po daily PREDNISONE 10 MG TABS 214281 PREDNISONE Inactive TYLENOL EXTRA STRENGTH 500 MG TABS as needed TYLENOL EXTRA STRENGTH 500 MG TABS 218325 ACETAMINOPHEN Inactive MUPIROCIN 2 % OINT apply to affected area BID x 14 days MUPIROCIN 2 % OINT 462837 MUPIROCIN Inactive MONTELUKAST SODIUM 10 MG TABS 1 tab po in the evening MONTELUKAST SODIUM 10 MG TABS 804912 MONTELUKAST SODIUM Inactive BENZONATATE 100 MG CAPS 1 cap po TID PRN BENZONATATE 100 MG CAPS 481078 BENZONATATE Inactive NEURONTIN 300 MG CAP 1 cap by mouth three times daily for restless leg 06/22 NEURONTIN 300 MG CAP 799511 GABAPENTIN Inactive LEVAQUIN 500 MG TAB 1 tablet by mouth daily LEVAQUIN 500 MG TAB 873814 LEVOFLOXACIN Inactive PREDNISONE 20 MG TAB 1 TID x 2 days, then 1 BID x 3 days, then 1 Daily x 3 days, then stop PREDNISONE 20 MG TAB 338925 PREDNISONE Inactive POTASSIUM CHLORIDE ER 10 MEQ CR-TABS take 1 tab po daily POTASSIUM CHLORIDE ER 10 MEQ CR-TABS POTASSIUM CHLORIDE Inactive PREDNISONE 20 MG TAB 1 tab twice daily for 3 day, then one daily for three days PREDNISONE 20 MG TAB 379442 PREDNISONE Inactive TESSALON PERLES 100 MG CAP 1 to 2 tablets by mouth 3 times daily as needed for cough TESSALON PERLES 100 MG CAP 276051 BENZONATATE Inactive POTASSIUM CHLORIDE CR 10 MEQ CPCR 1 capsule by mouth daily 02/14 POTASSIUM CHLORIDE CR 10 MEQ CPCR POTASSIUM CHLORIDE Inactive NITROSTAT 0.4 MG SUBL 1 tab under tongueas needed for chest pain ( may take 3 total, 5 min apart, then call 911) NITROSTAT 0.4 MG SUBL 144340 NITROGLYCERIN Inactive LOVASTATIN 40 MG TABS 1 pill by mouth nightly for cholesterol LOVASTATIN 40 MG TABS 554036 LOVASTATIN Inactive CEFDINIR 300 MG ORAL CAPS take 1 cap po bid x 10 days CEFDINIR 300 MG ORAL CAPS 793618 CEFDINIR Inactive ACEBUTOLOL HCL 200 MG CAPS 1 cap in the morning and 2 caps in the evening ACEBUTOLOL HCL 200 MG CAPS 750912 ACEBUTOLOL HCL Inactive VENTOLIN HFA 108 (90 BASE) MCG/ACT AERS 2 -4 puffs four times a day PRN 2013 VENTOLIN HFA 108 (90 BASE) MCG/ACT AERS ALBUTEROL SULFATE Inactive LEVAQUIN 500 MG ORAL TABS Take 1 tab po daily x 8 days LEVAQUIN 500 MG ORAL TABS 123568 LEVOFLOXACIN Inactive PREDNISONE 20 MG TAB 2 tabs daily for 4 days, 1 tab daily for 4 days, 1/2 tab daily for 4 days PREDNISONE 20 MG TAB 666921 PREDNISONE Inactive LOVASTATIN 40 MG ORAL TABS Take 1 tab po every hs LOVASTATIN 40 MG ORAL TABS 054359 LOVASTATIN Inactive DILAUDID 2 MG ORAL TABS Take 1/2 tab po every 4 hours as needed for pain 2014 DILAUDID 2 MG ORAL TABS 374962 HYDROMORPHONE HCL Inactive AMITRIPTYLINE HCL 25 MG ORAL TABS 1 q hs prn AMITRIPTYLINE HCL 25 MG ORAL TABS 268259 AMITRIPTYLINE HCL Inactive MECLIZINE HCL 25 MG TAB 1 tablet three times daily for 3 days, then 1/2 tab three times daily for 3 days. MECLIZINE HCL 25 MG TAB 453381 MECLIZINE HCL Inactive AMLODIPINE BESYLATE 5 MG ORAL TABS Take 1 tab po daily AMLODIPINE BESYLATE 5 MG ORAL TABS 046170 AMLODIPINE BESYLATE Inactive TOPIRAMATE 25 MG TABS 1 tab po BID TOPIRAMATE 25 MG TABS 534969 TOPIRAMATE Inactive PREDNISONE 20 MG TAB 1 tablet twice daily for 2 days, then 1 tablet once daily for 2 days PREDNISONE 20 MG TAB 897544 PREDNISONE Inactive PREDNISONE 20 MG TAB 1 tab twice daily for 3 day, then one daily for three days PREDNISONE 20 MG TAB 005850 PREDNISONE Inactive NIFEDIPINE ER 30 MG ORAL [id number] 1 daily NIFEDIPINE ER 30 MG ORAL [id number] NIFEDIPINE Inactive AMLODIPINE BESYLATE 5 MG TABS 1 tablet by mouth daily AMLODIPINE BESYLATE 5 MG TABS 941940 AMLODIPINE BESYLATE Inactive AZITHROMYCIN 250 MG TABS 2 po qd x 1 day, then 1 po qd x 4 days AZITHROMYCIN 250 MG TABS 2575234 AZITHROMYCIN Inactive AZITHROMYCIN 250 MG TABS 2 po qd x 1 day, then 1 po qd x 4 days AZITHROMYCIN 250 MG TABS 7871641 AZITHROMYCIN Inactive PREDNISONE 20 MG TAB 2 po qd x 5 days PREDNISONE 20 MG TAB 611582 PREDNISONE Inactive Vital Signs Date Name Value [...] Panel - Chemistry sodium, serum 137 mmol/L 784-805 3581/01/03 potassium, serum 3.4 mmol/L 3.5-5.2 chloride, serum [...] Magnesium - Chemistry cholesterol, serum 180 mg/dL 503-368 5892/08/08 triglyceride, serum, fasting 92 mg/dL 30-200 HDL cholesterol, serum 66 mg/dL 32-96 LDL cholesterol, serum 96 mg/dL 0-130 sodium, serum 142 mmol/L 258-862 5943/08/08 carbon dioxide, venous blood 27.4 mmol/L 21.0-32.0 [...] 10.0-20.0 Encounters Code Encounter Date Provider Facility CPT-51952 Level 3 Est. Patient 11:30:05 CDT Harinder Cr [facility] CPT-42810 Level 4 Est. Patient 10:19:23 CDT Harinder Hernandez [facility] CPT-81953 Level 3 Est. Patient 09:58:58 CDT Harinder Cr [facility] CPT-78856 Level 3 Est. Patient 12:37:21 CDT Harinder Cr David [facility] CPT-78155 Level 3 Est. Patient 18:37:17 CDT Harinder Hernandez [facility] CPT-98449 Level 4 Est. Patient 11:15:54 CDT Nettie Newberry APRN [facility] CPT-90529 Level 3 Est. Patient 16:42:24 CDT Harinder Shaye David [facility] CPT-09748 Level 3 Est. Patient 15:03:36 CDT Harinder Hernandez [facility] CPT-25086 Level 3 Est. Patient 15:03:20 CDT Harinder Cr David [facility] CPT-95526 Level 3 Est. Patient 12:14:34 CDT Harinder Hernandez [facility] CPT-29946 Level 3 Est. Patient 13:47:15 CDT Harinder Cr David [facility] CPT-00477 Level 3 Est. Patient 14:08:24 CDT Harinder Hernandez [facility] CPT-85914 Level 3 Est. Patient 10:07:15 CDT Harinder Hernandez [facility] CPT-41482 Level 3 Est. Patient 10:06:59 CDT Harinder Cr David [facility] CPT-25326 Level 3 Est. Patient 15:53:29 CDT Jae Morgan MD [facility] CPT-98111 Level 3 Est. Patient 17:19:04 CDT Harinder Hernandez [facility] CPT-46698 Level 3 Est. Patient 11:13:01 CDT Harinder Hernandez [facility] CPT-09729 Level 3 Est. Patient 09:03:58 CDT Harinder Hernandez [facility] CPT-14511 Level 3 Est. Patient 14:46:45 DATA ANALYST Harinder Cr [facility] CPT-02244 Level 3 Est. Patient 09:35:49 DATA ANALYST Harinder Cr [facility] CPT-99780 Level 3 Est. Patient 09:29:37 DATA ANALYST Harinder Hernandez [facility] CPT-82421 Level 3 Est. Patient 15:51:07 CDT Harinder Hernandez [facility] CPT-77361 Level 3 Est. Patient 18:13:13 CDT Harinder Hernandez [facility] CPT-88684 Level 3 Est. Patient 10:44:19 CDT Harinder Cr [facility] CPT-45117 Level 4 Est. Patient 10:07:19 DATA ANALYST Harinder Cr [facility] CPT-15291 Level 3 Est. Patient 15:59:32 DATA ANALYST Harinder Cr [facility] Procedures Code Procedure Name Date Entry Date Standard Description CPT-50445 Hip, complete, 2-3 views - XRAY USE ONLY 10:28:40 CDT CPT-28258 BMP - LAB USE ONLY 16:45:09 DATA ANALYST CPT-81767 Port a cath flush 12:00:13 DATA ANALYST CPT-TCMM Transitional Care Mgmt-Moderate 11:20:16 DATA ANALYST CPT-83149 First Vx - Ix admin for Medicare patients 17:35:15 CDT CPT-36468 Fluzone Preservative Free Intramuscular Suspension 17:35 :15 CDT CPT-30831 Microalbumin - LAB USE ONLY 11:52:05 CDT CPT-TCMM Transitional Care Mgmt-Moderate 11:33:57 CDT CPT-72488 No Charge Offi Visit 14:11:29 CDT CPT-64355 Magnesium - LAB USE ONLY 10:45:44 CDT CPT-36296 Lipid - LAB USE ONLY 10:45:44 CDT CPT-36217 CBC - LAB USE ONLY 10:45:44 CDT CPT-77269 Venipuncture Draw Fee 10:45:43 CDT CPT-53829 Venipuncture Draw Fee 18:21:27 CDT CPT-JTINJ Asp/Joint Injection 18:38:04 CDT CPT-51237 Immunization Each Additional Inj 17:38:04 CDT CPT-69601 Immunization Single Admin 17:38:04 CDT CPT-81456 Prevnar 13 17:38:04 CDT CPT-04152 Fluzone Quadrivalent preservative free (>=3yrs.) 17:38: 04 CDT CPT-28270 No Charge Offi Visit 11:14:03 CDT CPT-11921 Chest 2V Frontal and Lat 14:00:18 CDT CPT-OV Office Visit 16:10:28 CDT CPT-JTINJ Asp/Joint Injection 09:03:57 CDT CPT-Cryo Cryotherapy 09:35:49 DATA ANALYST CPT-JTINJ Asp/Joint Injection 09:34:45 DATA ANALYST CPT-J2930 Solu Medrol 125 mg (Methyl Prednisolone Sodium Succinate) 20:37:27 CDT CPT-69543 Abx/Therapy Injection 20:37:27 CDT CPT-06604 Port a cath flush 08:15:51 CDT CPT-50513 Port a cath flush 09:54:16 CDT [facility]-58033 Port a cath flush 09:38:02 CDT [facility]-03063 Port a cath flush 11:00:27 DATA ANALYST
--- OUTSIDE RECORDS SUMMARY | 2017-12-29 05:09 | XMS REPORT | Clinical Summary ---
Author Author Admin, QIE Organization [facility] [place] Address Unknown Phone Unavailable Allergies, Adverse Reactions, [...] MG/0.3ML INJ SOAJ 1 INJ NEEDED EPINEPHRINE 42110030651 Active Tawnya Pardo MA Active PREDNISONE 20 MG TAB 1 tab twice daily for 3 day, then one daily for three days PREDNISONE 04455074110 No Longer Active Harinder Hernandez DO Active PREDNISONE 20 MG TAB 1 tablet twice daily for 2 days, then 1 tablet once daily for 2 days PREDNISONE 84549362027 No Longer Active Harinder Hernandez DO Active ASMANEX 120 METERED DOSES 220 MCG/INH INH AEPB 2 puffs orally twice daily MOMETASONE FUROATE 31081133177 Active Jeri Sosa RPT,RMA Active NIFEDIPINE ER 30 MG ORAL [id number] 1 daily NIFEDIPINE 00561943032 Active Tawnya Pardo MA Active TOPIRAMATE 25 MG TABS 1 tab po BID TOPIRAMATE 15964186851 No Longer Active Nettie Newberry APRN Active AMLODIPINE BESYLATE 5 MG ORAL TABS Take 1 tab po daily AMLODIPINE BESYLATE 59423309984 No Longer Active Nettie Newberry APRN Active MECLIZINE HCL 25 MG TAB 1 tablet three times daily for 3 days, then 1/2 tab three times daily for 3 days. MECLIZINE HCL 35302873765 No Longer Active Nettie Newberry APRN Active AMITRIPTYLINE HCL 25 MG ORAL TABS 1 q hs prn AMITRIPTYLINE HCL 99361083605 No Longer Active Nettie Newberry APRN Active DILAUDID 2 MG ORAL TABS Take 1/2 tab po every 4 hours as needed for pain 2014 HYDROMORPHONE HCL 25220084485 No Longer Active Nettie Newberry APRN Active CLOPIDOGREL BISULFATE 75 MG ORAL TABS 1 tab by mouth once daily CLOPIDOGREL BISULFATE 24117622354 Active Tawnya Pardo MA Active ATORVASTATIN CALCIUM 10 MG ORAL TABS 1 at bedtime ATORVASTATIN CALCIUM 31451782684 Active Tawnya Pardo MA Active LOVASTATIN 40 MG ORAL TABS Take 1 tab po every hs LOVASTATIN 56805820342 No Longer Active Harinder Hernandez DO Active PREDNISONE 20 MG TAB 2 tabs daily for 4 days, 1 tab daily for 4 days, 1/2 tab daily for 4 days PREDNISONE 25020273052 No Longer Active Harinder Hernandez DO Active LEVAQUIN 500 MG ORAL TABS Take 1 tab po daily x 8 days LEVOFLOXACIN 35225545905 No Longer Active Harinder Hernandez DO Active VENTOLIN HFA 108 (90 BASE) MCG/ACT AERS 2 -4 puffs four times a day PRN 2013 ALBUTEROL SULFATE 28371980404 No Longer Active Jeri Sosa RPT,RMA Active ACEBUTOLOL HCL 200 MG CAPS 1 cap in the morning and 2 caps in the evening ACEBUTOLOL HCL 36770316939 No Longer Active Harinder Hernandez DO Active CEFDINIR 300 MG ORAL CAPS take 1 cap po bid x 10 days CEFDINIR 92661835054 No Longer Active Harinder Hernandez DO Active LOVASTATIN 40 MG TABS 1 pill by mouth nightly for cholesterol LOVASTATIN 87106222211 No Longer Active Nettie Newberry APRN Active NITROSTAT 0.4 MG SUBL 1 tab under tongueas needed for chest pain ( may take 3 total, 5 min apart, then call 911) NITROGLYCERIN 67073941182 No Longer Active Nettie Newberry APRN Active POTASSIUM CHLORIDE CR 10 MEQ CPCR 1 capsule by mouth daily 02/14 POTASSIUM CHLORIDE 00459813834 No Longer Active Nettie Newberry APRN Active TESSALON PERLES 100 MG CAP 1 to 2 tablets by mouth 3 times daily as needed for cough BENZONATATE 62212149507 No Longer Active Nettie Newberry APRN Active THEOPHYLLINE ER 200 MG ORAL [id number] Take 1 tab every 12 hours THEOPHYLLINE 82215620704 Active Tawnya Pardo MA Active PREDNISONE 20 MG TAB 2 po qd x 5 days PREDNISONE 57541636330 No Longer Active Jae Morgan MD Active AZITHROMYCIN 250 MG TABS 2 po qd x 1 day, then 1 po qd x 4 days AZITHROMYCIN 24355842435 No Longer Active Jae Morgan MD Active PREDNISONE 20 MG TAB 1 tab twice daily for 3 day, then one daily for three days PREDNISONE 50362237429 No Longer Active Jae Morgan MD Active SINGULAIR 10 MG TABS 1 pill by mouth every evening for breathing. MONTELUKAST SODIUM 97720953284 Active Tawnya Pardo MA Active TYLENOL 325 MG TAB 3 by mouth q4h as needed ACETAMINOPHEN 85986831459 Active Harinder Hernandez DO Active POTASSIUM CHLORIDE ER 10 MEQ CR-TABS take 1 tab po daily POTASSIUM CHLORIDE 50837046172 No Longer Active Harinder Hernandez DO Active PREDNISONE 20 MG TAB 1 TID x 2 days, then 1 BID x 3 days, then 1 Daily x 3 days, then stop PREDNISONE 25083914716 No Longer Active Derrickllkvng Montemayor APRN Active LEVAQUIN 500 MG TAB 1 tablet by mouth daily LEVOFLOXACIN 04288412566 No Longer Active Jillkvng Montemayor APRN Active NEURONTIN 300 MG CAP 1 cap by mouth three times daily for restless leg 06/22 GABAPENTIN 45924868277 No Longer Active Harinder Hernandez DO Active BENZONATATE 100 MG CAPS 1 cap po TID PRN BENZONATATE 56360732659 No Longer Active Harinder Hernandez DO Active MONTELUKAST SODIUM 10 MG TABS 1 tab po in the evening MONTELUKAST SODIUM 02594147200 No Longer Active Harinder Hernandez DO Active MUPIROCIN 2 % OINT apply to affected area BID x 14 days MUPIROCIN 45186201473 No Longer Active Harinder Hernandze DO Active TYLENOL EXTRA STRENGTH 500 MG TABS as needed ACETAMINOPHEN 95322615375 No Longer Active Harinder Hernandez DO Active PREDNISONE 10 MG TABS 1 tab po daily PREDNISONE 06248631729 No Longer Active Harinder Hernandez DO Active PREDNISONE 20 MG TAB 2 tabs daily for 4 days, 1 tab daily for 4 days, 1/2 tab daily for 4 days PREDNISONE 52428712670 No Longer Active Harinder Hernandez DO Active AZITHROMYCIN 250 MG TABS 2 po qd x 1 day, then 1 po qd x 4 days AZITHROMYCIN 05794223360 No Longer Active Harinder Hernandez DO Active PREDNISONE 20 MG TAB 3 tabs today, then 1 tab twice daily for 3 day, then one daily for three days PREDNISONE 84245506753 No Longer Active Harinder Hernandez DO Active NIFEDIAC CC 30 MG [id number] 1 tablet daily for raynaud's syndrome NIFEDIPINE 00013891766 No Longer Active Tawnya Pardo MA Active AMBIEN 10 MG TAB 1/2 tab by mouth at bedtime as needed for sleep ZOLPIDEM TARTRATE 32170411513 Active Harinder Hernandez DO Active CLONAZEPAM 1 MG TABS 1 tablet at bedtime for insomnia and restless legs 09/14 CLONAZEPAM 76740171034 Active Kaylah Newberry Active CLONAZEPAM 0.5 MG TABS 1 tab po daily CLONAZEPAM 31321455806 No Longer Active Harinder Hernandez DO Active PREDNISONE 10 MG TAB 1 tablet daily for COPD PREDNISONE 12677017320 Active Tawnya Pardo MA Active PROAIR HFA 108 (90 BASE) MCG/ACT AERS 2 puffs four times a day as needed 2012 ALBUTEROL SULFATE 44648947067 Active Tawnya Pardo MA Active FLOVENT HFA 110 MCG/ACT AERO 2 puffs inhaled b.i.d. FLUTICASONE PROPIONATE HFA 22859996955 Active Tawnya Pardo MA Active ACIPHEX 20 MG TBEC 1 tab po daily RABEPRAZOLE SODIUM 46206060794 Active Tawnya Pardo MA Active CLONAZEPAM 0.5 MG TABS 1 tab po daily CLONAZEPAM 0.5 MG TABS 881238 CLONAZEPAM Inactive PREDNISONE 20 MG TAB 3 tabs today, then 1 tab twice daily for 3 day, then one daily for three days PREDNISONE 20 MG TAB 453571 PREDNISONE Inactive PREDNISONE 20 MG TAB 2 tabs daily for 4 days, 1 tab daily for 4 days, 1/2 tab daily for 4 days PREDNISONE 20 MG TAB 892145 PREDNISONE Inactive PREDNISONE 10 MG TABS 1 tab po daily PREDNISONE 10 MG TABS 217749 PREDNISONE Inactive TYLENOL EXTRA STRENGTH 500 MG TABS as needed TYLENOL EXTRA STRENGTH 500 MG TABS 184252 ACETAMINOPHEN Inactive MUPIROCIN 2 % OINT apply to affected area BID x 14 days MUPIROCIN 2 % OINT 991181 MUPIROCIN Inactive MONTELUKAST SODIUM 10 MG TABS 1 tab po in the evening MONTELUKAST SODIUM 10 MG TABS 228831 MONTELUKAST SODIUM Inactive BENZONATATE 100 MG CAPS 1 cap po TID PRN BENZONATATE 100 MG CAPS 469200 BENZONATATE Inactive NEURONTIN 300 MG CAP 1 cap by mouth three times daily for restless leg 06/22 NEURONTIN 300 MG CAP 877465 GABAPENTIN Inactive LEVAQUIN 500 MG TAB 1 tablet by mouth daily LEVAQUIN 500 MG TAB 526563 LEVOFLOXACIN Inactive PREDNISONE 20 MG TAB 1 TID x 2 days, then 1 BID x 3 days, then 1 Daily x 3 days, then stop PREDNISONE 20 MG TAB 746172 PREDNISONE Inactive POTASSIUM CHLORIDE ER 10 MEQ CR-TABS take 1 tab po daily POTASSIUM CHLORIDE ER 10 MEQ CR-TABS POTASSIUM CHLORIDE Inactive PREDNISONE 20 MG TAB 1 tab twice daily for 3 day, then one daily for three days PREDNISONE 20 MG TAB 282448 PREDNISONE Inactive TESSALON PERLES 100 MG CAP 1 to 2 tablets by mouth 3 times daily as needed for cough TESSALON PERLES 100 MG CAP 644690 BENZONATATE Inactive POTASSIUM CHLORIDE CR 10 MEQ CPCR 1 capsule by mouth daily 02/14 POTASSIUM CHLORIDE CR 10 MEQ CPCR POTASSIUM CHLORIDE Inactive NITROSTAT 0.4 MG SUBL 1 tab under tongueas needed for chest pain ( may take 3 total, 5 min apart, then call 911) NITROSTAT 0.4 MG SUBL 640269 NITROGLYCERIN Inactive LOVASTATIN 40 MG TABS 1 pill by mouth nightly for cholesterol LOVASTATIN 40 MG TABS 769326 LOVASTATIN Inactive CEFDINIR 300 MG ORAL CAPS take 1 cap po bid x 10 days CEFDINIR 300 MG ORAL CAPS 048741 CEFDINIR Inactive ACEBUTOLOL HCL 200 MG CAPS 1 cap in the morning and 2 caps in the evening ACEBUTOLOL HCL 200 MG CAPS 264518 ACEBUTOLOL HCL Inactive VENTOLIN HFA 108 (90 BASE) MCG/ACT AERS 2 -4 puffs four times a day PRN 2013 VENTOLIN HFA 108 (90 BASE) MCG/ACT AERS ALBUTEROL SULFATE Inactive LEVAQUIN 500 MG ORAL TABS Take 1 tab po daily x 8 days LEVAQUIN 500 MG ORAL TABS 145535 LEVOFLOXACIN Inactive PREDNISONE 20 MG TAB 2 tabs daily for 4 days, 1 tab daily for 4 days, 1/2 tab daily for 4 days PREDNISONE 20 MG TAB 633294 PREDNISONE Inactive LOVASTATIN 40 MG ORAL TABS Take 1 tab po every hs LOVASTATIN 40 MG ORAL TABS 802768 LOVASTATIN Inactive DILAUDID 2 MG ORAL TABS Take 1/2 tab po every 4 hours as needed for pain 2014 DILAUDID 2 MG ORAL TABS 877238 HYDROMORPHONE HCL Inactive AMITRIPTYLINE HCL 25 MG ORAL TABS 1 q hs prn AMITRIPTYLINE HCL 25 MG ORAL TABS 812246 AMITRIPTYLINE HCL Inactive MECLIZINE HCL 25 MG TAB 1 tablet three times daily for 3 days, then 1/2 tab three times daily for 3 days. MECLIZINE HCL 25 MG TAB 852179 MECLIZINE HCL Inactive AMLODIPINE BESYLATE 5 MG ORAL TABS Take 1 tab po daily AMLODIPINE BESYLATE 5 MG ORAL TABS 698159 AMLODIPINE BESYLATE Inactive TOPIRAMATE 25 MG TABS 1 tab po BID TOPIRAMATE 25 MG TABS 156278 TOPIRAMATE Inactive PREDNISONE 20 MG TAB 1 tablet twice daily for 2 days, then 1 tablet once daily for 2 days PREDNISONE 20 MG TAB 263906 PREDNISONE Inactive PREDNISONE 20 MG TAB 1 tab twice daily for 3 day, then one daily for three days PREDNISONE 20 MG TAB 042857 PREDNISONE Inactive AZITHROMYCIN 250 MG TABS 2 po qd x 1 day, then 1 po qd x 4 days AZITHROMYCIN 250 MG TABS 3182279 AZITHROMYCIN Inactive AZITHROMYCIN 250 MG TABS 2 po qd x 1 day, then 1 po qd x 4 days AZITHROMYCIN 250 MG TABS 7951584 AZITHROMYCIN Inactive PREDNISONE 20 MG TAB 2 po qd x 5 days PREDNISONE 20 MG TAB 611244 PREDNISONE Inactive Vital Signs Date Name Value [...] Magnesium - Chemistry cholesterol, serum 180 mg/dL 307-840 5281/08/08 triglyceride, serum, fasting 92 mg/dL 30-200 HDL cholesterol, serum 66 mg/dL 32-96 LDL cholesterol, serum 96 mg/dL 0-130 sodium, serum 142 mmol/L 642-737 7297/08/08 carbon dioxide, venous blood 27.4 mmol/L 21.0-32.0 [...] 10.0-20.0 Encounters Code Encounter Date Provider Facility CPT-55621 Level 3 Est. Patient 09:58:58 CDT Harinder Cr [facility] CPT-09803 Level 3 Est. Patient 12:37:21 CDT Harinder Hernandez [facility] CPT-99609 Level 3 Est. Patient 18:37:17 CDT Harinder Cr [facility] CPT-00221 Level 4 Est. Patient 11:15:54 CDT Nettie Newberry [facility] CPT-91856 Level 3 Est. Patient 16:42:24 CDT Harinder Hernandez [facility] CPT-40197 Level 3 Est. Patient 15:03:36 CDT Harinder Hernandez [facility] CPT-07756 Level 3 Est. Patient 15:03:20 CDT Harinder Hernandez [facility] CPT-96262 Level 3 Est. Patient 12:14:34 CDT Harinder Hernandez [facility] CPT-69844 Level 3 Est. Patient 13:47:15 CDT Harinder Hernandez [facility] CPT-08607 Level 3 Est. Patient 14:08:24 CDT Harinder Hernandez [facility] CPT-10049 Level 3 Est. Patient 10:07:15 CDT Harinder Hernandez [facility] CPT-22570 Level 3 Est. Patient 10:06:59 CDT Harinder Hernandez [facility] CPT-13177 Level 3 Est. Patient 15:53:29 CDT Jae Morgan [facility] CPT-70552 Level 3 Est. Patient 17:19:04 CDT Harinder Hernandez [facility] CPT-63646 Level 3 Est. Patient 11:13:01 CDT Harinder Hernandez [facility] CPT-84836 Level 3 Est. Patient 09:03:58 CDT Harinder Hernandez [facility] CPT-32609 Level 3 Est. Patient 14:46:45 EXTERNAL RELATIONS DIRECTOR Harinder Hernandez [facility] CPT-07459 Level 3 Est. Patient 09:35:49 EXTERNAL RELATIONS DIRECTOR Harinder Shaye Hernandez [facility] CPT-67308 Level 3 Est. Patient 09:29:37 EXTERNAL RELATIONS DIRECTOR Harinder Cr David [facility] CPT-16081 Level 3 Est. Patient 15:51:07 CDT Harinder Hernandez [facility] CPT-22391 Level 3 Est. Patient 18:13:13 CDT Harinder Hernandez [facility] CPT-22385 Level 3 Est. Patient 10:44:19 CDT Harinder Hernandez [facility] CPT-44126 Level 4 Est. Patient 10:07:19 EXTERNAL RELATIONS DIRECTOR Harinder Cr [facility] CPT-19909 Level 3 Est. Patient 15:59:32 EXTERNAL RELATIONS DIRECTOR Harinder Cr [facility] Procedures Code Procedure Name Date Entry Date Standard Description CPT-TCMM Transitional Care Mgmt-Moderate 11:33:57 CDT CPT-44492 No Charge Offi Visit 14:11:29 CDT CPT-96559 Magnesium - LAB USE ONLY 10:45:44 CDT CPT-48321 Lipid - LAB USE ONLY 10:45:44 CDT CPT-46829 CBC - LAB USE ONLY 10:45:44 CDT CPT-24779 Venipuncture Draw Fee 10:45:43 CDT CPT-10959 Venipuncture Draw Fee 18:21:27 CDT CPT-JTINJ Asp/Joint Injection 18:38:04 CDT CPT-92474 Immunization Each Additional Inj 17:38:04 CDT CPT-08437 Immunization Single Admin 17:38:04 CDT CPT-73466 Prevnar 13 17:38:04 CDT CPT-64815 Fluzone Quadrivalent preservative free (>=3yrs.) 17:38: 04 CDT CPT-37479 No Charge Offi Visit 11:14:03 CDT CPT-81383 Chest 2V Frontal and Lat 14:00:18 CDT CPT-OV Office Visit 16:10:28 CDT CPT-JTINJ Asp/Joint Injection 09:03:57 CDT CPT-Cryo Cryotherapy 09:35:49 EXTERNAL RELATIONS DIRECTOR CPT-JTINJ Asp/Joint Injection 09:34:45 EXTERNAL RELATIONS DIRECTOR CPT-J2930 Solu Medrol 125 mg (Methyl Prednisolone Sodium Succinate) 20:37:27 CDT CPT-49801 Abx/Therapy Injection 20:37:27 CDT CPT-91178 Port a cath flush 08:15:51 CDT CPT-91858 Port a cath flush 09:54:16 CDT CPT-45105 Port a cath flush 09:38:02 CDT CPT-09588 Port a cath flush 11:00:27 EXTERNAL RELATIONS DIRECTOR
--- OUTSIDE RECORDS SUMMARY | 2017-12-29 05:11 | XMS REPORT | Clinical Summary ---
Author Author Admin, QIE Organization [facility] [employer] Address Unknown Phone Unavailable Allergies, Adverse Reactions, [...] Jeri Sosa Scribdanae Edema Tendonitis 726.90 Active Harnider Hernandez DO Enthesopathy of unspecified site Anxiety [...] 1 capsule twice daily 10 days CEFDINIR 31882492144 Active Harinder Hernandez DO Active SUPER CALCIUM 600 + D3 TABLET CALCIUM CARBONATE-VITAMIN D TABS 06072867185 Active Meenu Alejo LPN Active SPIRONOLACTONE 25 MG ORAL TABLET 1 tablet by mouth daily SPIRONOLACTONE 67950114923 No Longer Active Jeri Nieto Active PREDNISONE 20 MG ORAL TABLET 2 tablets by mouth today, then 1 tablet by mouth days 2-3 PREDNISONE 11307587028 No Longer Active eJri Nieto Active NITROSTAT 0.4 MG SUBLINGUAL TABLET SUBLINGUAL 1 tab SL q5min PRN chest pain NITROGLYCERIN 03829238672 Active Meenu Alejo LPN Active THEOPHYLLINE ER 300 MG ORAL TABLET EXTENDED RELEASE 12 HOUR 1 po BID THEOPHYLLINE 83554995496 Active Meenu Alejo LPN Active POTASSIUM CHLORIDE ER 20 MEQ ORAL TABLET EXTENDED RELEASE 1 po q day POTASSIUM CHLORIDE 05689730789 Active Kortney Mccain Active POTASSIUM CHLORIDE 20 MEQ ORAL PACKET 1 tab po q day POTASSIUM CHLORIDE 13517135633 No Longer Active Kortney Mccain Active POTASSIUM CHLORIDE ER 10 MEQ ORAL CAPSULE EXTENDED RELEASE 1 capsule BID 2016 POTASSIUM CHLORIDE 98172688363 No Longer Active Kortney Mccain Active LASIX 20 MG ORAL TABLET 1 tablet by mouth every morning FUROSEMIDE 35008042970 No Longer Active Kortney Mccain Active FLUOXETINE HCL 10 MG ORAL CAPSULE 1 po qd for depression/anxiety FLUOXETINE HCL 28412672870 Active Meenu Alejo LPN Active VOLTAREN 1 % TRANSDERMAL GEL apply q 6-8 hour to left arm as needed for pain DICLOFENAC SODIUM 52585894258 Active Kortney Mccain Active ALBUTEROL SULFATE (2.5 MG/3ML) 0.083% INHALATION NEBULIZATION SOLUTION 1 vial neb q 4hrs for severe asthma. 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 NIFEDIPINE 56194756119 Active Kortney Mccain Active AMLODIPINE BESYLATE 5 MG ORAL TABLET 1 tablet by mouth daily 2016 AMLODIPINE BESYLATE 11396119945 No Longer Active Harinder Hernandez DO Active TOPAMAX 25 MG ORAL TABLET 1 tab po BID TOPIRAMATE 60973807467 Active Kortney Mccain Active FLUTICASONE PROPIONATE 50 MCG/ACT NASAL SUSPENSION 2 sprays per nostril daily PRN Allergies FLUTICASONE PROPIONATE 07457528914 Active Meenu Alejo LPN Active NIFEDIPINE ER 30 MG ORAL TABLET EXTENDED RELEASE 24 HOUR 1 daily NIFEDIPINE 28242150932 No Longer Active Harinder Hernandez DO Active FLOVENT HFA 110 MCG/ACT INHALATION AEROSOL 2 puffs inhaled b.i.d. FLUTICASONE PROPIONATE HFA 02585618845 Active Harinder Hernandez DO Active EPIPEN 2-BRUNA 0.3 MG/0.3ML INJECTION SOLUTION AUTO-INJECTOR 1 INJ NEEDED EPINEPHRINE 02384371877 Active Meenu Alejo LPN Active PREDNISONE 20 MG ORAL TABLET 1 tab twice daily for 3 day, then one daily for three days PREDNISONE 66519139192 No Longer Active Harinder Hernandez DO Active PREDNISONE 20 MG ORAL TABLET 1 tablet twice daily for 2 days, then 1 tablet once daily for 2 days PREDNISONE 10786415976 No Longer Active Harinder Hernandez DO Active ASMANEX 120 METERED DOSES 220 MCG/INH INHALATION AEROSOL POWDER BREATH ACTIVATED 2 puffs orally twice daily MOMETASONE FUROATE 05721977411 Active Jeri Sosa LPN Active TOPIRAMATE 25 MG ORAL TABLET 1 tab po BID TOPIRAMATE 98329869256 No Longer Active Nettie Newberry APRN Active AMLODIPINE BESYLATE 5 MG ORAL TABLET Take 1 tab po daily AMLODIPINE BESYLATE 92635482151 No Longer Active Nettie Newberry APRN Active MECLIZINE HCL 25 MG ORAL TABLET 1 tablet three times daily for 3 days, then 1/ 2 tab three times daily for 3 days. MECLIZINE HCL 65471210179 No Longer Active Nettie Newberry APRN Active AMITRIPTYLINE HCL 25 MG ORAL TABLET 1 q hs prn AMITRIPTYLINE HCL 55902408428 No Longer Active Nettie Newberry APRN Active DILAUDID 2 MG ORAL TABLET Take 1/2 tab po every 4 hours as needed for pain HYDROMORPHONE HCL 28232902537 No Longer Active Nettie Newberry APRN Active CLOPIDOGREL BISULFATE 75 MG ORAL TABLET 1 tab by mouth once daily CLOPIDOGREL BISULFATE 31033417031 Active Meenu Alejo LPN Active ATORVASTATIN CALCIUM 10 MG ORAL TABLET 1 at bedtime ATORVASTATIN CALCIUM 55405053642 Active Kortney Mccain Active LOVASTATIN 40 MG ORAL TABLET Take 1 tab po every hs LOVASTATIN 00368863203 No Longer Active Harinder Hernandez DO Active PREDNISONE 20 MG ORAL TABLET 2 tabs daily for 4 days, 1 tab daily for 4 days, 1/2 tab daily for 4 days PREDNISONE 99195830945 No Longer Active Harinder Hernandez DO Active LEVAQUIN 500 MG ORAL TABLET Take 1 tab po daily x 8 days LEVOFLOXACIN 76706158288 No Longer Active Harinder Hernandez DO Active VENTOLIN HFA 108 (90 Base) MCG/ACT INHALATION AEROSOL SOLUTION 2 -4 puffs four times a day PRN ALBUTEROL SULFATE 83596358666 No Longer Active Jeri Sosa LPN Active ACEBUTOLOL HCL 200 MG ORAL CAPSULE 1 cap in the morning and 2 caps in the evening ACEBUTOLOL HCL 37601665975 No Longer Active Harinder Hernandez DO Active CEFDINIR 300 MG ORAL CAPSULE take 1 cap po bid x 10 days CEFDINIR 05354401267 No Longer Active Harinder Hernandez DO Active LOVASTATIN 40 MG ORAL TABLET 1 pill by mouth nightly for cholesterol LOVASTATIN 96989878909 No Longer Active Nettie Newberry APRN Active NITROSTAT 0.4 MG SUBLINGUAL TABLET SUBLINGUAL 1 tab under tongueas needed for chest pain ( may take 3 total, 5 min apart, then call 911) NITROGLYCERIN 33484661114 No Longer Active Nettie Newberry APRN Active POTASSIUM CHLORIDE ER 10 MEQ ORAL CAPSULE EXTENDED RELEASE 1 capsule by mouth daily POTASSIUM CHLORIDE 40760423705 No Longer Active Nettie Newberry APRN Active TESSALON PERLES 100 MG ORAL CAPSULE 1 to 2 tablets by mouth 3 times daily as needed for cough BENZONATATE 52528200276 No Longer Active Nettie Newberry APRN Active PREDNISONE 20 MG ORAL TABLET 2 po qd x 5 days PREDNISONE 26764131211 No Longer Active Jae Morgan MD Active AZITHROMYCIN 250 MG ORAL TABLET 2 po qd x 1 day, then 1 po qd x 4 days 12/30 AZITHROMYCIN 97766838850 No Longer Active Jae Morgan MD Active PREDNISONE 20 MG ORAL TABLET 1 tab twice daily for 3 day, then one daily for three days PREDNISONE 67961641371 No Longer Active Jae Morgan MD Active SINGULAIR 10 MG ORAL TABLET 1 pill by mouth every evening for breathing. 2014 MONTELUKAST SODIUM 43917722421 Active Meenu Alejo LPN Active TYLENOL 325 MG ORAL TABLET 3 by mouth q4h as needed ACETAMINOPHEN 11842989589 Active Harinder Hernandez DO Active POTASSIUM CHLORIDE ER 10 MEQ ORAL TABLET EXTENDED RELEASE take 1 tab po daily POTASSIUM CHLORIDE 35744514100 No Longer Active Harinder Hernandez DO Active PREDNISONE 20 MG ORAL TABLET 1 TID x 2 days, then 1 BID x 3 days, then 1 Daily x 3 days, then stop PREDNISONE 74801577706 No Longer Active Jillina Frazell MAHENDRA Active LEVAQUIN 500 MG ORAL TABLET 1 tablet by mouth daily LEVOFLOXACIN 43454105760 No Longer Active Jillina Fradankl MAHENDRA Active NEURONTIN 300 MG ORAL CAPSULE 1 cap by mouth three times daily for restless leg GABAPENTIN 51372644784 No Longer Active Harinder Hernandez DO Active BENZONATATE 100 MG ORAL CAPSULE 1 cap po TID PRN BENZONATATE 36709102302 No Longer Active Harinder Hernandez DO Active MONTELUKAST SODIUM 10 MG ORAL TABLET 1 tab po in the evening 2014 MONTELUKAST SODIUM 23636662808 No Longer Active Harinder Hernandez DO Active MUPIROCIN 2 % EXTERNAL OINTMENT apply to affected area BID x 14 days MUPIROCIN 75210848438 No Longer Active Harinder Hernandez DO Active TYLENOL EXTRA STRENGTH 500 MG ORAL TABLET as needed ACETAMINOPHEN 91896957614 No Longer Active Harinder Hernandez DO Active PREDNISONE 10 MG ORAL TABLET 1 tab po daily PREDNISONE 49623377827 No Longer Active Harinder Hernandez DO Active PREDNISONE 20 MG ORAL TABLET 2 tabs daily for 4 days, 1 tab daily for 4 days, 1/2 tab daily for 4 days PREDNISONE 49900723681 No Longer Active Harinder Hernandez DO Active AZITHROMYCIN 250 MG ORAL TABLET 2 po qd x 1 day, then 1 po qd x 4 days 04/06 AZITHROMYCIN 61007223508 No Longer Active Harinder Hernandez DO Active PREDNISONE 20 MG ORAL TABLET 3 tabs today, then 1 tab twice daily for 3 day, then one daily for three days PREDNISONE 33015934061 No Longer Active Harinder Hernandez DO Active NIFEDIAC CC 30 MG ORAL TABLET EXTENDED RELEASE 24 HOUR 1 tablet daily for raynaud's syndrome NIFEDIPINE 86403054017 No Longer Active Tawnya Pardo MA Active AMBIEN 10 MG ORAL TABLET 1/2 tab by mouth at bedtime as needed for sleep 2013 ZOLPIDEM TARTRATE 90978721512 Active Meenu Alejo LPN Active CLONAZEPAM 1 MG ORAL TABLET 1 tablet at bedtime for insomnia and restless legs CLONAZEPAM 87184214522 Active Meenu Alejo LPN Active CLONAZEPAM 0.5 MG ORAL TABLET 1 tab po daily CLONAZEPAM 57304674733 No Longer Active Harinder Hernandez DO Active PREDNISONE 10 MG ORAL TABLET 1 tablet daily for COPD PREDNISONE 07776445529 Active Kortney Mccain Active PROAIR HFA 108 (90 Base) MCG/ACT INHALATION AEROSOL SOLUTION 2 puffs four times a day as needed ALBUTEROL SULFATE 73114602417 Active Harinder Hernandez DO Active FLOVENT HFA 110 MCG/ACT INHALATION AEROSOL 2 puffs inhaled b.i.d. FLUTICASONE PROPIONATE HFA 56685323700 Active Kortney Mccain Active ACIPHEX 20 MG ORAL TABLET DELAYED RELEASE 1 tab po daily RABEPRAZOLE SODIUM 27093274319 Active Meenu Melo CHEN Active CLONAZEPAM 0.5 MG ORAL TABLET 1 tab po daily CLONAZEPAM 0.5 MG ORAL TABLET 610139 CLONAZEPAM Inactive PREDNISONE 20 MG ORAL TABLET 3 tabs today, then 1 tab twice daily for 3 day, then one daily for three days PREDNISONE 20 MG ORAL TABLET 083198 PREDNISONE Inactive PREDNISONE 20 MG ORAL TABLET 2 tabs daily for 4 days, 1 tab daily for 4 days, 1/2 tab daily for 4 days PREDNISONE 20 MG ORAL TABLET 648922 PREDNISONE Inactive PREDNISONE 10 MG ORAL TABLET 1 tab po daily PREDNISONE 10 MG ORAL TABLET 520164 PREDNISONE Inactive TYLENOL EXTRA STRENGTH 500 MG ORAL TABLET as needed TYLENOL EXTRA STRENGTH 500 MG ORAL TABLET 626533 ACETAMINOPHEN Inactive MUPIROCIN 2 % EXTERNAL OINTMENT apply to affected area BID x 14 days MUPIROCIN 2 % EXTERNAL OINTMENT 407208 MUPIROCIN Inactive MONTELUKAST SODIUM 10 MG ORAL TABLET 1 tab po in the evening 2014 MONTELUKAST SODIUM 10 MG ORAL TABLET 510342 MONTELUKAST SODIUM Inactive BENZONATATE 100 MG ORAL CAPSULE 1 cap po TID PRN BENZONATATE 100 MG ORAL CAPSULE 776080 BENZONATATE Inactive NEURONTIN 300 MG ORAL CAPSULE 1 cap by mouth three times daily for restless leg NEURONTIN 300 MG ORAL CAPSULE 591695 GABAPENTIN Inactive LEVAQUIN 500 MG ORAL TABLET 1 tablet by mouth daily LEVAQUIN 500 MG ORAL TABLET 723950 LEVOFLOXACIN Inactive PREDNISONE 20 MG ORAL TABLET 1 TID x 2 days, then 1 BID x 3 days, then 1 Daily x 3 days, then stop PREDNISONE 20 MG ORAL TABLET 606961 PREDNISONE Inactive POTASSIUM CHLORIDE ER 10 MEQ ORAL TABLET EXTENDED RELEASE take 1 tab po daily POTASSIUM CHLORIDE ER 10 MEQ ORAL TABLET EXTENDED RELEASE POTASSIUM CHLORIDE Inactive PREDNISONE 20 MG ORAL TABLET 1 tab twice daily for 3 day, then one daily for three days PREDNISONE 20 MG ORAL TABLET 518803 PREDNISONE Inactive TESSALON PERLES 100 MG ORAL CAPSULE 1 to 2 tablets by mouth 3 times daily as needed for cough TESSALON PERLES 100 MG ORAL CAPSULE 054601 BENZONATATE Inactive POTASSIUM CHLORIDE ER 10 MEQ ORAL CAPSULE EXTENDED RELEASE 1 capsule by mouth daily POTASSIUM CHLORIDE ER 10 MEQ ORAL CAPSULE EXTENDED RELEASE POTASSIUM CHLORIDE Inactive NITROSTAT 0.4 MG SUBLINGUAL TABLET SUBLINGUAL 1 tab under tongueas needed for chest pain ( may take 3 total, 5 min apart, then call 911) NITROSTAT 0.4 MG SUBLINGUAL TABLET SUBLINGUAL 577968 NITROGLYCERIN Inactive LOVASTATIN 40 MG ORAL TABLET 1 pill by mouth nightly for cholesterol LOVASTATIN 40 MG ORAL TABLET 813330 LOVASTATIN Inactive CEFDINIR 300 MG ORAL CAPSULE take 1 cap po bid x 10 days CEFDINIR 300 MG ORAL CAPSULE 285338 CEFDINIR Inactive ACEBUTOLOL HCL 200 MG ORAL CAPSULE 1 cap in the morning and 2 caps in the evening ACEBUTOLOL HCL 200 MG ORAL CAPSULE 024303 ACEBUTOLOL HCL Inactive VENTOLIN HFA 108 (90 Base) MCG/ACT INHALATION AEROSOL SOLUTION 2 -4 puffs four times a day PRN VENTOLIN HFA 108 (90 Base) MCG/ ACT INHALATION AEROSOL SOLUTION ALBUTEROL SULFATE Inactive LEVAQUIN 500 MG ORAL TABLET Take 1 tab po daily x 8 days LEVAQUIN 500 MG ORAL TABLET 074401 LEVOFLOXACIN Inactive PREDNISONE 20 MG ORAL TABLET 2 tabs daily for 4 days, 1 tab daily for 4 days, 1/2 tab daily for 4 days PREDNISONE 20 MG ORAL TABLET 794629 PREDNISONE Inactive LOVASTATIN 40 MG ORAL TABLET Take 1 tab po every hs LOVASTATIN 40 MG ORAL TABLET 193660 LOVASTATIN Inactive DILAUDID 2 MG ORAL TABLET Take 1/2 tab po every 4 hours as needed for pain DILAUDID 2 MG ORAL TABLET 259013 HYDROMORPHONE HCL Inactive AMITRIPTYLINE HCL 25 MG ORAL TABLET 1 q hs prn AMITRIPTYLINE HCL 25 MG ORAL TABLET 402158 AMITRIPTYLINE HCL Inactive MECLIZINE HCL 25 MG ORAL TABLET 1 tablet three times daily for 3 days, then 1/ 2 tab three times daily for 3 days. MECLIZINE HCL 25 MG ORAL TABLET 713542 MECLIZINE HCL Inactive AMLODIPINE BESYLATE 5 MG ORAL TABLET Take 1 tab po daily AMLODIPINE BESYLATE 5 MG ORAL TABLET 792764 AMLODIPINE BESYLATE Inactive TOPIRAMATE 25 MG ORAL TABLET 1 tab po BID TOPIRAMATE 25 MG ORAL TABLET 515298 TOPIRAMATE Inactive PREDNISONE 20 MG ORAL TABLET 1 tablet twice daily for 2 days, then 1 tablet once daily for 2 days PREDNISONE 20 MG ORAL TABLET 967879 PREDNISONE Inactive PREDNISONE 20 MG ORAL TABLET 1 tab twice daily for 3 day, then one daily for three days PREDNISONE 20 MG ORAL TABLET 092019 PREDNISONE Inactive NIFEDIPINE ER 30 MG ORAL TABLET EXTENDED RELEASE 24 HOUR 1 daily NIFEDIPINE ER 30 MG ORAL TABLET EXTENDED RELEASE 24 HOUR NIFEDIPINE Inactive AMLODIPINE BESYLATE 5 MG ORAL TABLET 1 tablet by mouth daily 2016 AMLODIPINE BESYLATE 5 MG ORAL TABLET 276628 AMLODIPINE BESYLATE Inactive LASIX 20 MG ORAL TABLET 1 tablet by mouth every morning LASIX 20 MG ORAL TABLET 713422 FUROSEMIDE Inactive POTASSIUM CHLORIDE ER 10 MEQ ORAL CAPSULE EXTENDED RELEASE 1 capsule BID 2016 POTASSIUM CHLORIDE ER 10 MEQ ORAL CAPSULE EXTENDED RELEASE POTASSIUM CHLORIDE Inactive POTASSIUM CHLORIDE 20 MEQ ORAL PACKET 1 tab po q day POTASSIUM CHLORIDE 20 MEQ ORAL PACKET 8656042 POTASSIUM CHLORIDE Inactive PREDNISONE 20 MG ORAL TABLET 2 tablets by mouth today, then 1 tablet by mouth days 2-3 PREDNISONE 20 MG ORAL TABLET 588536 PREDNISONE Inactive SPIRONOLACTONE 25 MG ORAL TABLET 1 tablet by mouth daily SPIRONOLACTONE 25 MG ORAL TABLET 909513 SPIRONOLACTONE Inactive AZITHROMYCIN 250 MG ORAL TABLET 2 po qd x 1 day, then 1 po qd x 4 days 04/06 AZITHROMYCIN 250 MG ORAL TABLET 085716 AZITHROMYCIN Inactive AZITHROMYCIN 250 MG ORAL TABLET 2 po qd x 1 day, then 1 po qd x 4 days 12/30 AZITHROMYCIN 250 MG ORAL TABLET 678940 AZITHROMYCIN Inactive PREDNISONE 20 MG ORAL TABLET 2 po qd x 5 days PREDNISONE 20 MG ORAL TABLET 530497 PREDNISONE Inactive Vital Signs Date Name Value [...] 3.2 mmol/L 3.5-5.2 sodium, serum 140 mmol/L 940-641 2063/08/21 sodium, serum 140 mmol/L 580-420 8642/08/21 urea nitrogen, blood 11 mg/dL 7-18 creatinine, serum 0.95 mg/dL 0.60-1.30 potassium, serum 3.8 mmol/L 3.5-5.2 chloride, serum 105 mmol/L 98-107 carbon dioxide, venous blood 26.9 mmol/L 21.0-32.0 blood glucose 85 mg/dL 65-110 calcium, serum 8.8 mg/dL 8.5-10.1 sodium, serum 142 mmol/L 163-726 4073/06/14 potassium, serum 3.3 mmol/L 3.5-5.2 chloride, serum [...] ... - Chemistry sodium, serum 141 mmol/L 735-212 7824/08/07 creatinine, serum 0.97 mg/dL 0.60-1.30 alanine aminotransferase [...] 1.40 mg/dL 0.00-1.00 cholesterol, serum 192 mg/dL 994-755 2840/10/19 triglyceride, serum, fasting 71 mg/dL 30-200 HDL cholesterol, serum 72 mg/dL 32-60 Lab Report: Rapid Strep - Lab Microbial identification kit, rapid strep method Negative Negative Lab Report: THEOPHYLLINE - Toxicology theophylline level, serum 3.1 ug/mL 10.0-20.0 Encounters Code Encounter Date Provider Facility CPT-21982 Level 3 Est. Patient 14:31:43 CDT Harinder Hernandez [facility] CPT-70910 Level 4 Est. Patient 10:17:51 LABORATORY AIDE Harinder Hernandez [facility] CPT-37799 Level 3 Est. Patient 12:36:15 LABORATORY AIDE Harinder Hernandez [facility] CPT-12066 Level 3 Est. Patient 15:14:45 LABORATORY AIDE Harinder Hernandez [facility] CPT-06228 Level 4 Est. Patient 14:45:25 CDT Harinder Cr [facility] CPT-83586 Level 4 Est. Patient 09:15:13 CDT Harinder Hernandez [facility] CPT-10837 Level 3 Est. Patient 11:51:58 CDT Harinder Hernandez [facility] CPT-87421 Level 3 Est. Patient 11:30:05 CDT Harinder Cr [facility] CPT-82802 Level 4 Est. Patient 10:19:23 CDT Harinder Cr [facility] CPT-03460 Level 3 Est. Patient 09:58:58 CDT Harinder Cr [facility] CPT-28828 Level 3 Est. Patient 12:37:21 CDT Harinder Cr [facility] CPT-03230 Level 3 Est. Patient 18:37:17 CDT Harinder Cr [facility] CPT-37852 Level 4 Est. Patient 11:15:54 CDT Nettie Newberry [facility] [place][note 2] CPT-45282 Level 3 Est. Patient 16:42:24 CDT Harinder Cr [facility] CPT-95228 Level 3 Est. Patient 15:03:36 CDT Harinder Cr [facility] CPT-95031 Level 3 Est. Patient 15:03:20 CDT Harinder Cr [facility] CPT-52280 Level 3 Est. Patient 12:14:34 CDT Harinder Cr [facility] CPT-83473 Level 3 Est. Patient 13:47:15 CDT Harinder Cr [facility] CPT-02812 Level 3 Est. Patient 14:08:24 CDT Harinder Cr [facility] CPT-68086 Level 3 Est. Patient 10:07:15 CDT Harinder Hernandez [facility] CPT-81791 Level 3 Est. Patient 10:06:59 CDT Harinder Hernandez [facility] CPT-20193 Level 3 Est. Patient 15:53:29 CDT Jae Morgan MD [facility] CPT-04997 Level 3 Est. Patient 17:19:04 CDT Harinder Hernandez [facility] CPT-65824 Level 3 Est. Patient 11:13:01 CDT Harinder Hernandez [facility] CPT-22071 Level 3 Est. Patient 09:03:58 CDT Harinder Hernandez [facility] CPT-86215 Level 3 Est. Patient 14:46:45 LABORATORY AIDE Harinder Hernandez [facility] CPT-01575 Level 3 Est. Patient 09:35:49 LABORATORY AIDE Harinder Hernandez [facility] CPT-18315 Level 3 Est. Patient 09:29:37 LABORATORY AIDE Harinder Hernandez [facility] CPT-92577 Level 3 Est. Patient 15:51:07 CDT Harinder Hernandez [facility] CPT-30197 Level 3 Est. Patient 18:13:13 CDT Harinder Hernandez [facility] CPT-42063 Level 3 Est. Patient 10:44:19 CDT Harinder Hernandez [facility] CPT-41560 Level 4 Est. Patient 10:07:19 LABORATORY AIDE Haridner Hernandez [facility] CPT-34308 Level 3 Est. Patient 15:59:32 LABORATORY AIDE Harinder Shaye David [facility] Procedures Code Procedure Name Date Entry Date Standard Description CPT-72440 Bone Density - XRAY USE ONLY 14:43:42 CDT CPT-G0009 Administration of Pneumococcal Vaccine 10:33:25 LABORATORY AIDE CPT-53818 Pneumovax 23 Injection Injectable 25 MCG/0.5ML 10:33:25 LABORATORY AIDE CPT-93986 First Vx - Ix admin for Medicare patients 10:33:25 LABORATORY AIDE CPT-90297 Fluzone Quadrivalent Intramuscular Suspension 0.5 ML 10: 33:25 LABORATORY AIDE CPT-Cryo Cryotherapy 10:17:51 LABORATORY AIDE CPT-G0438 Initial Annual Wellness Exam 10:08:59 LABORATORY AIDE CPT-33688 Abd compl w upright - XRAY USE ONLY 14:48:09 CDT 02/18 CPT-83701 Port a cath flush 13:46:05 CDT CPT-70245 Hip, complete, 2-3 views - XRAY USE ONLY 10:28:40 CDT CPT-93703 BMP - LAB USE ONLY 16:45:09 LABORATORY AIDE CPT-57286 Port a cath flush 12:00:13 LABORATORY AIDE CPT-TCMM Transitional Care Mgmt-Moderate 11:20:16 LABORATORY AIDE CPT-77782 First Vx - Ix admin for Medicare patients 17:35:15 CDT CPT-71968 Fluzone Preservative Free Intramuscular Suspension 17:35 :15 CDT CPT-70847 Microalbumin - LAB USE ONLY 11:52:05 CDT CPT-TCMM Transitional Care Mgmt-Moderate 11:33:57 CDT CPT-13908 No Charge Offi Visit 14:11:29 CDT CPT-35566 Magnesium - LAB USE ONLY 10:45:44 CDT CPT-96709 Lipid - LAB USE ONLY 10:45:44 CDT CPT-07206 CBC - LAB USE ONLY 10:45:44 CDT CPT-41333 Venipuncture Draw Fee 10:45:43 CDT CPT-01143 Venipuncture Draw Fee 18:21:27 CDT CPT-JTINJ Asp/Joint Injection 18:38:04 CDT CPT-35917 Immunization Each Additional Inj 17:38:04 CDT CPT-30953 Immunization Single Admin 17:38:04 CDT CPT-86393 Prevnar 13 17:38:04 CDT CPT-18983 Fluzone Quadrivalent preservative free (>=3yrs.) 17:38: 04 CDT CPT-22452 No Charge Offi Visit 11:14:03 CDT CPT-89754 Chest 2V Frontal and Lat 14:00:18 CDT CPT-OV Office Visit 16:10:28 CDT CPT-JTINJ Asp/Joint Injection 09:03:57 CDT CPT-Cryo Cryotherapy 09:35:49 LABORATORY AIDE CPT-JTINJ Asp/Joint Injection 09:34:45 LABORATORY AIDE CPT-J2930 Solu Medrol 125 mg (Methyl Prednisolone Sodium Succinate) 20:37:27 CDT CPT-09999 Abx/Therapy Injection 20:37:27 CDT CPT-19111 Port a cath flush 08:15:51 CDT CPT-16329 Port a cath flush 09:54:16 CDT CPT-01164 Port a cath flush 09:38:02 CDT CPT-76734 Port a cath flush 11:00:27 LABORATORY AIDE
--- OUTSIDE RECORDS SUMMARY | 2017-12-29 05:13 | XMS REPORT | Clinical Summary ---
Author Author Admin, QIE Organization [facility] Address Unknown Phone Unavailable Allergies, [...] then one daily for three days PREDNISONE [id number] No Longer Active Hrainder Hernandez DO Active PREDNISONE 20 MG TAB 1 tablet twice daily for 2 days, then 1 tablet once daily for 2 days PREDNISONE 41557554045 No Longer Active Harinder Hernandez DO Active ASMANEX 120 METERED DOSES 220 MCG/INH INH AEPB 2 puffs orally twice daily MOMETASONE FUROATE 12282892468 Active Jeri Sosa RPT,RMA Active NIFEDIPINE ER 30 MG ORAL [id number] 1 daily NIFEDIPINE 54959773368 Active Tawnya Pardo MA Active TOPIRAMATE 25 MG TABS 1 tab po BID TOPIRAMATE 11187303296 No Longer Active Nettie Newberry APRN Active AMLODIPINE BESYLATE 5 MG ORAL TABS Take 1 tab po daily AMLODIPINE BESYLATE 08196014820 No Longer Active Nettie Newberry APRN Active MECLIZINE HCL 25 MG TAB 1 tablet three times daily for 3 days, then 1/2 tab three times daily for 3 days. MECLIZINE HCL 02693988407 No Longer Active Nettie Newberry APRN Active AMITRIPTYLINE HCL 25 MG ORAL TABS 1 q hs prn AMITRIPTYLINE HCL 29086828942 No Longer Active Nettie Newberry APRN Active DILAUDID 2 MG ORAL TABS Take 1/2 tab po every 4 hours as needed for pain 2014 HYDROMORPHONE HCL 26969840974 No Longer Active Nettie Newberry APRN Active CLOPIDOGREL BISULFATE 75 MG ORAL TABS 1 tab by mouth once daily CLOPIDOGREL BISULFATE 84380115155 Active Tawnya Pardo MA Active ATORVASTATIN CALCIUM 10 MG ORAL TABS 1 at bedtime ATORVASTATIN CALCIUM 04649772439 Active Tawnya Pardo MA Active LOVASTATIN 40 MG ORAL TABS Take 1 tab po every hs LOVASTATIN 10155199238 No Longer Active Harinder Hernandez DO Active PREDNISONE 20 MG TAB 2 tabs daily for 4 days, 1 tab daily for 4 days, 1/2 tab daily for 4 days PREDNISONE 82899352763 No Longer Active Harinder Hernandez DO Active LEVAQUIN 500 MG ORAL TABS Take 1 tab po daily x 8 days LEVOFLOXACIN 58366060847 No Longer Active Harinder Hernandez DO Active VENTOLIN HFA 108 (90 BASE) MCG/ACT AERS 2 -4 puffs four times a day PRN 2013 ALBUTEROL SULFATE 13886699668 No Longer Active Jeri Sosa RPT,RMA Active ACEBUTOLOL HCL 200 MG CAPS 1 cap in the morning and 2 caps in the evening ACEBUTOLOL HCL 91493100479 No Longer Active Harinder Hernandez DO Active CEFDINIR 300 MG ORAL CAPS take 1 cap po bid x 10 days CEFDINIR 15437960098 No Longer Active Harinder Hernandez DO Active LOVASTATIN 40 MG TABS 1 pill by mouth nightly for cholesterol LOVASTATIN 64639807135 No Longer Active Nettie Newberry APRN Active NITROSTAT 0.4 MG SUBL 1 tab under tongueas needed for chest pain ( may take 3 total, 5 min apart, then call 911) NITROGLYCERIN 69131327481 No Longer Active Nettie Newberry APRN Active POTASSIUM CHLORIDE CR 10 MEQ CPCR 1 capsule by mouth daily 02/14 POTASSIUM CHLORIDE 37390611024 No Longer Active Nettie Newberry APRN Active TESSALON PERLES 100 MG CAP 1 to 2 tablets by mouth 3 times daily as needed for cough BENZONATATE 46347029175 No Longer Active Nettie Newberry APRN Active THEOPHYLLINE ER 200 MG ORAL [id number] Take 1 tab every 12 hours THEOPHYLLINE 12330553743 Active Tawnya Pardo MA Active PREDNISONE 20 MG TAB 2 po qd x 5 days PREDNISONE 87018432558 No Longer Active Jae Morgan MD Active AZITHROMYCIN 250 MG TABS 2 po qd x 1 day, then 1 po qd x 4 days AZITHROMYCIN 50786113816 No Longer Active Jae Morgan MD Active PREDNISONE 20 MG TAB 1 tab twice daily for 3 day, then one daily for three days PREDNISONE 84957239510 No Longer Active Jae Morgan MD Active SINGULAIR 10 MG TABS 1 pill by mouth every evening for breathing. MONTELUKAST SODIUM 07567542724 Active Tawnya Pardo MA Active TYLENOL 325 MG TAB 3 by mouth q4h as needed ACETAMINOPHEN 02237537426 Active Harinder Hernandez DO Active POTASSIUM CHLORIDE ER 10 MEQ CR-TABS take 1 tab po daily POTASSIUM CHLORIDE 16447901487 No Longer Active Harinder Hernandez DO Active PREDNISONE 20 MG TAB 1 TID x 2 days, then 1 BID x 3 days, then 1 Daily x 3 days, then stop PREDNISONE 75475453851 No Longer Active Jillina Frazell PROOF LOAD MECHANIC Active LEVAQUIN 500 MG TAB 1 tablet by mouth daily LEVOFLOXACIN 02176528028 No Longer Active Jillina Frazell PROOF LOAD MECHANIC Active NEURONTIN 300 MG CAP 1 cap by mouth three times daily for restless leg 06/22 GABAPENTIN 40000938447 No Longer Active Harinder Hernandez DO Active BENZONATATE 100 MG CAPS 1 cap po TID PRN BENZONATATE 69776116685 No Longer Active Harinder Hernandez DO Active MONTELUKAST SODIUM 10 MG TABS 1 tab po in the evening MONTELUKAST SODIUM 74079538406 No Longer Active Harinder Hernandez DO Active MUPIROCIN 2 % OINT apply to affected area BID x 14 days MUPIROCIN 51319334032 No Longer Active Harinder Hernandez DO Active TYLENOL EXTRA STRENGTH 500 MG TABS as needed ACETAMINOPHEN 59279525744 No Longer Active Harinder Hernandez DO Active PREDNISONE 10 MG TABS 1 tab po daily PREDNISONE 50277289108 No Longer Active Harinder Hernandez DO Active PREDNISONE 20 MG TAB 2 tabs daily for 4 days, 1 tab daily for 4 days, 1/2 tab daily for 4 days PREDNISONE 23136864080 No Longer Active Harinder Hernandez DO Active AZITHROMYCIN 250 MG TABS 2 po qd x 1 day, then 1 po qd x 4 days AZITHROMYCIN 20774826961 No Longer Active Harinder Hernandez DO Active PREDNISONE 20 MG TAB 3 tabs today, then 1 tab twice daily for 3 day, then one daily for three days PREDNISONE 82264105623 No Longer Active Harinder Hernandez DO Active NIFEDIAC CC 30 MG [id number] 1 tablet daily for raynaud's syndrome NIFEDIPINE 93550394676 No Longer Active Tawnya Pardo MA Active AMBIEN 10 MG TAB 1/2 tab by mouth at bedtime as needed for sleep ZOLPIDEM TARTRATE 99424293132 Active Harinder Hernandez DO Active CLONAZEPAM 1 MG TABS 1 tablet at bedtime for insomnia and restless legs 09/14 CLONAZEPAM 91316117210 Active Kaylah Newberry Active CLONAZEPAM 0.5 MG TABS 1 tab po daily CLONAZEPAM 46039377941 No Longer Active Harinder Hernandez DO Active PREDNISONE 10 MG TAB 1 tablet daily for COPD PREDNISONE 57898670109 Active Tawnya Pardo MA Active PROAIR HFA 108 (90 BASE) MCG/ACT AERS 2 puffs four times a day as needed 2012 ALBUTEROL SULFATE 39248000212 Active Tawnya Pardo MA Active FLOVENT HFA 110 MCG/ACT AERO 2 puffs inhaled b.i.d. FLUTICASONE PROPIONATE HFA 71621281630 Active Tawnya Pardo MA Active EPIPEN 0.3 MG/0.3ML URIEL DIRECTED EPINEPHRINE Active Jeri Sosa RPT,RMA Active ACIPHEX 20 MG TBEC 1 tab po daily RABEPRAZOLE SODIUM 45788030983 Active Tawnya Pardo MA Active CLONAZEPAM 0.5 MG TABS 1 tab po daily CLONAZEPAM 0.5 MG TABS 838467 CLONAZEPAM Inactive PREDNISONE 20 MG TAB 3 tabs today, then 1 tab twice daily for 3 day, then one daily for three days PREDNISONE 20 MG TAB 920406 PREDNISONE Inactive PREDNISONE 20 MG TAB 2 tabs daily for 4 days, 1 tab daily for 4 days, 1/2 tab daily for 4 days PREDNISONE 20 MG TAB 955636 PREDNISONE Inactive PREDNISONE 10 MG TABS 1 tab po daily PREDNISONE 10 MG TABS 628714 PREDNISONE Inactive TYLENOL EXTRA STRENGTH 500 MG TABS as needed TYLENOL EXTRA STRENGTH 500 MG TABS 156709 ACETAMINOPHEN Inactive MUPIROCIN 2 % OINT apply to affected area BID x 14 days MUPIROCIN 2 % OINT 768179 MUPIROCIN Inactive MONTELUKAST SODIUM 10 MG TABS 1 tab po in the evening MONTELUKAST SODIUM 10 MG TABS 677148 MONTELUKAST SODIUM Inactive BENZONATATE 100 MG CAPS 1 cap po TID PRN BENZONATATE 100 MG CAPS 397899 BENZONATATE Inactive NEURONTIN 300 MG CAP 1 cap by mouth three times daily for restless leg 06/22 NEURONTIN 300 MG CAP 669670 GABAPENTIN Inactive LEVAQUIN 500 MG TAB 1 tablet by mouth daily LEVAQUIN 500 MG TAB 297641 LEVOFLOXACIN Inactive PREDNISONE 20 MG TAB 1 TID x 2 days, then 1 BID x 3 days, then 1 Daily x 3 days, then stop PREDNISONE 20 MG TAB 068174 PREDNISONE Inactive POTASSIUM CHLORIDE ER 10 MEQ CR-TABS take 1 tab po daily POTASSIUM CHLORIDE ER 10 MEQ CR-TABS POTASSIUM CHLORIDE Inactive PREDNISONE 20 MG TAB 1 tab twice daily for 3 day, then one daily for three days PREDNISONE 20 MG TAB 423852 PREDNISONE Inactive TESSALON PERLES 100 MG CAP 1 to 2 tablets by mouth 3 times daily as needed for cough TESSALON PERLES 100 MG CAP 976822 BENZONATATE Inactive POTASSIUM CHLORIDE CR 10 MEQ [...] nightly for cholesterol LOVASTATIN 40 MG TABS 078780 LOVASTATIN Inactive CEFDINIR 300 MG ORAL CAPS take 1 cap po bid x 10 days CEFDINIR 300 MG ORAL CAPS 936461 CEFDINIR Inactive ACEBUTOLOL HCL 200 MG CAPS 1 cap in the morning and 2 caps in the evening ACEBUTOLOL HCL 200 MG CAPS 330789 ACEBUTOLOL HCL Inactive VENTOLIN HFA 108 (90 BASE) MCG/ACT AERS 2 -4 puffs four times a day PRN 2013 VENTOLIN HFA 108 (90 BASE) MCG/ACT AERS ALBUTEROL SULFATE Inactive LEVAQUIN 500 MG ORAL TABS Take 1 tab po daily x 8 days LEVAQUIN 500 MG ORAL TABS 479977 LEVOFLOXACIN Inactive PREDNISONE 20 MG TAB 2 tabs daily for 4 days, 1 tab daily for 4 days, 1/2 tab daily for 4 days PREDNISONE 20 MG TAB 632308 PREDNISONE Inactive LOVASTATIN 40 MG ORAL TABS Take 1 tab po every hs LOVASTATIN 40 MG ORAL TABS 102593 LOVASTATIN Inactive DILAUDID 2 MG ORAL TABS Take 1/2 tab po every 4 hours as needed for pain 2014 DILAUDID 2 MG ORAL TABS 420367 HYDROMORPHONE HCL Inactive AMITRIPTYLINE HCL 25 MG ORAL TABS 1 q hs prn AMITRIPTYLINE HCL 25 MG ORAL TABS 140341 AMITRIPTYLINE HCL Inactive MECLIZINE HCL 25 MG TAB 1 tablet three times daily for 3 days, then 1/2 tab three times daily for 3 days. MECLIZINE HCL 25 MG TAB 718081 MECLIZINE HCL Inactive AMLODIPINE BESYLATE 5 MG ORAL TABS Take 1 tab po daily AMLODIPINE BESYLATE 5 MG ORAL TABS 394325 AMLODIPINE BESYLATE Inactive TOPIRAMATE 25 MG TABS 1 tab po BID TOPIRAMATE 25 MG TABS 819650 TOPIRAMATE Inactive PREDNISONE 20 MG TAB 1 tablet twice daily for 2 days, then 1 tablet once daily for 2 days PREDNISONE 20 MG TAB 783152 PREDNISONE Inactive PREDNISONE 20 MG TAB 1 tab twice daily for 3 day, then one daily for three days PREDNISONE 20 MG TAB 345336 PREDNISONE Inactive AZITHROMYCIN 250 MG TABS 2 po qd x 1 day, then 1 po qd x 4 days AZITHROMYCIN 250 MG TABS 8887718 AZITHROMYCIN Inactive AZITHROMYCIN 250 MG TABS 2 po qd x 1 day, then 1 po qd x 4 days AZITHROMYCIN 250 MG TABS 6218699 AZITHROMYCIN Inactive PREDNISONE 20 MG TAB 2 po qd x 5 days PREDNISONE 20 MG TAB 743333 PREDNISONE Inactive Vital Signs Date Name Value [...] Panel - Chemistry sodium, serum 138 mmol/L 313-520 1756/09/24 potassium, serum 3.5 mmol/L 3.5-5.2 chloride, serum [...] Magnesium - Chemistry cholesterol, serum 180 mg/dL 552-712 6093/08/08 triglyceride, serum, fasting 92 mg/dL 30-200 HDL cholesterol, serum 66 mg/dL 32-96 LDL cholesterol, serum 96 mg/dL 0-130 sodium, serum 142 mmol/L 340-473 8943/08/08 carbon dioxide, venous blood 27.4 mmol/L 21.0-32.0 [...] 10.0-20.0 Encounters Code Encounter Date Provider Facility CPT-46100 Level 3 Est. Patient 09:58:58 CDT Harinder Shaye [facility] CPT-94619 Level 3 Est. Patient 12:37:21 CDT Harinder Shaye [facility] CPT-97055 Level 3 Est. Patient 18:37:17 CDT Harinder Cr [facility] CPT-13771 Level 4 Est. Patient 11:15:54 CDT Nettie Newberry [facility] CPT-88682 Level 3 Est. Patient 16:42:24 CDT Harinder Cr [facility] CPT-67124 Level 3 Est. Patient 15:03:36 CDT Harinder Shaye [facility] CPT-63086 Level 3 Est. Patient 15:03:20 CDT Harinder Shaye [facility] CPT-60059 Level 3 Est. Patient 12:14:34 CDT Harinder Cr [facility] CPT-44865 Level 3 Est. Patient 13:47:15 CDT Harinder Cr [facility] CPT-61163 Level 3 Est. Patient 14:08:24 CDT Harinder Shaye [facility] CPT-35024 Level 3 Est. Patient 10:07:15 CDT Harinder Cr [facility] CPT-51674 Level 3 Est. Patient 10:06:59 CDT Harinder Cr [facility] CPT-65940 Level 3 Est. Patient 15:53:29 CDT Jae Morgan MD [facility] CPT-85927 Level 3 Est. Patient 17:19:04 CDT Harinder Shaye [facility] CPT-23408 Level 3 Est. Patient 11:13:01 CDT Harinder Hernandez [facility] CPT-58602 Level 3 Est. Patient 09:03:58 CDT Harinder Hernandez [facility] CPT-97176 Level 3 Est. Patient 14:46:45 STRIP MACHINE OPERATOR Harinder Shaye [facility] CPT-36972 Level 3 Est. Patient 09:35:49 STRIP MACHINE OPERATOR Harinder Shaye [facility] CPT-39245 Level 3 Est. Patient 09:29:37 STRIP MACHINE OPERATOR Harinder Shaye [facility] CPT-42760 Level 3 Est. Patient 15:51:07 CDT Harinder Hernandez [facility] CPT-88251 Level 3 Est. Patient 18:13:13 CDT Harinder Hernandez [facility] CPT-16885 Level 3 Est. Patient 10:44:19 CDT Harinder Hernandez [facility] CPT-92956 Level 4 Est. Patient 10:07:19 STRIP MACHINE OPERATOR Harinder Hernandez [facility] CPT-94511 Level 3 Est. Patient 15:59:32 STRIP MACHINE OPERATOR Harinder Cr [facility] Procedures Code Procedure Name Date Entry Date Standard Description CPT-TCMM Transitional Care Mgmt-Moderate 11:33:57 CDT CPT-56766 No Charge Offi Visit 14:11:29 CDT CPT-92440 Magnesium - LAB USE ONLY 10:45:44 CDT CPT-94852 Lipid - LAB USE ONLY 10:45:44 CDT CPT-78822 CBC - LAB USE ONLY 10:45:44 CDT CPT-68972 Venipuncture Draw Fee 10:45:43 CDT CPT-11192 Venipuncture Draw Fee 18:21:27 CDT CPT-JTINJ Asp/Joint Injection 18:38:04 CDT CPT-44686 Immunization Each Additional Inj 17:38:04 CDT CPT-85652 Immunization Single Admin 17:38:04 CDT CPT-49894 Prevnar 13 17:38:04 CDT CPT-41206 Fluzone Quadrivalent preservative free (>=3yrs.) 17:38: 04 CDT CPT-44171 No Charge Offi Visit 11:14:03 CDT CPT-57604 Chest 2V Frontal and Lat 14:00:18 CDT CPT-OV Office Visit 16:10:28 CDT CPT-JTINJ Asp/Joint Injection 09:03:57 CDT CPT-Cryo Cryotherapy 09:35:49 STRIP MACHINE OPERATOR CPT-JTINJ Asp/Joint Injection 09:34:45 STRIP MACHINE OPERATOR CPT-J2930 Solu Medrol 125 mg (Methyl Prednisolone Sodium Succinate) 20:37:27 CDT CPT-02853 Abx/Therapy Injection 20:37:27 CDT CPT-79637 Port a cath flush 08:15:51 CDT CPT-86162 Port a cath flush 09:54:16 CDT CPT-35747 Port a cath flush 09:38:02 CDT CPT-11034 Port a cath flush 11:00:27 STRIP MACHINE OPERATOR
--- OUTSIDE RECORDS SUMMARY | 2017-12-29 05:14 | XMS REPORT | Clinical Summary ---
Author Author Admin, QIE Organization [facility] Address Unknown Phone Unavailable Allergies, Adverse Reactions, [...] right lower quadrant 789.03 Resolved Harinder Shaye eHrnandez DO Abdominal pain, right lower quadrant Needs [...] 2 puffs orally twice daily MOMETASONE FUROATE 96590873794 Active Jeri Sosa RPT,RMA Active NIFEDIPINE ER 30 MG ORAL [id number] 1 daily NIFEDIPINE 71061444786 Active Tawnya Pardo MA Active TOPIRAMATE 25 MG TABS 1 tab po BID TOPIRAMATE 34951505001 No Longer Active Nettie Newberry APRN Active AMLODIPINE BESYLATE 5 MG ORAL TABS Take 1 tab po daily AMLODIPINE BESYLATE 47321010754 No Longer Active Nettie Newberry APRN Active MECLIZINE HCL 25 MG TAB 1 tablet three times daily for 3 days, then 1/2 tab three times daily for 3 days. MECLIZINE HCL 52945481989 No Longer Active Nettie Newberry APRN Active AMITRIPTYLINE HCL 25 MG ORAL TABS 1 q hs prn AMITRIPTYLINE HCL 06461497629 No Longer Active Nettie Newberry APRN Active DILAUDID 2 MG ORAL TABS Take 1/2 tab po every 4 hours as needed for pain 2014 HYDROMORPHONE HCL 25689136643 No Longer Active Nettie Newberry APRN Active CLOPIDOGREL BISULFATE 75 MG ORAL TABS 1 tab by mouth once daily CLOPIDOGREL BISULFATE 08685457847 Active Tawnya Pardo MA Active ATORVASTATIN CALCIUM 10 MG ORAL TABS 1 at bedtime ATORVASTATIN CALCIUM 90726386888 Active Tawnya Pardo MA Active LOVASTATIN 40 MG ORAL TABS Take 1 tab po every hs LOVASTATIN 39945932908 No Longer Active Harinder Hernandez DO Active PREDNISONE 20 MG TAB 2 tabs daily for 4 days, 1 tab daily for 4 days, 1/2 tab daily for 4 days PREDNISONE 09189337327 No Longer Active Harinder Hernandez DO Active LEVAQUIN 500 MG ORAL TABS Take 1 tab po daily x 8 days LEVOFLOXACIN 29199549676 No Longer Active Harinder Hernandez DO Active VENTOLIN HFA 108 (90 BASE) MCG/ACT AERS 2 -4 puffs four times a day PRN 2013 ALBUTEROL SULFATE 10715507720 No Longer Active Jeri Sosa RPT,RMA Active ACEBUTOLOL HCL 200 MG CAPS 1 cap in the morning and 2 caps in the evening ACEBUTOLOL HCL 22815450704 No Longer Active Harinder Hernandez DO Active CEFDINIR 300 MG ORAL CAPS take 1 cap po bid x 10 days CEFDINIR 36825164105 No Longer Active Harinder Hernandez DO Active LOVASTATIN 40 MG TABS 1 pill by mouth nightly for cholesterol LOVASTATIN 89729938819 No Longer Active Nettie Newberry MAHENDRA Active NITROSTAT 0.4 MG SUBL 1 tab under tongueas needed for chest pain ( may take 3 total, 5 min apart, then call 911) NITROGLYCERIN 27470210526 No Longer Active Nettieog Newberry APRN Active POTASSIUM CHLORIDE CR 10 MEQ CPCR 1 capsule by mouth daily 02/14 POTASSIUM CHLORIDE 29571549378 No Longer Active Nettie Newberry MAHENDRA Active TESSALON PERLES 100 MG CAP 1 to 2 tablets by mouth 3 times daily as needed for cough BENZONATATE 92315087988 No Longer Active Nettieog Newberry APRN Active THEOPHYLLINE ER 200 MG ORAL [id number] Take 1 tab every 12 hours THEOPHYLLINE 15291754247 Active Tawnya Pardo MA Active PREDNISONE 20 MG TAB 2 po qd x 5 days PREDNISONE 42249401081 No Longer Active Jae Morgan MD Active AZITHROMYCIN 250 MG TABS 2 po qd x 1 day, then 1 po qd x 4 days AZITHROMYCIN 68098076323 No Longer Active Jae Morgan MD Active PREDNISONE 20 MG TAB 1 tab twice daily for 3 day, then one daily for three days PREDNISONE 67832313801 No Longer Active Jae Morgan MD Active SINGULAIR 10 MG TABS 1 pill by mouth every evening for breathing. MONTELUKAST SODIUM 49458305546 Active Tawnya Pardo MA Active TYLENOL 325 MG TAB 3 by mouth q4h as needed ACETAMINOPHEN 01791750802 Active Harinder Hernandez DO Active POTASSIUM CHLORIDE ER 10 MEQ CR-TABS take 1 tab po daily POTASSIUM CHLORIDE 37195517236 No Longer Active Harinder Hernandez DO Active PREDNISONE 20 MG TAB 1 TID x 2 days, then 1 BID x 3 days, then 1 Daily x 3 days, then stop PREDNISONE 84730667746 No Longer Active Jillina Frazell [employer]LOADER Active LEVAQUIN 500 MG TAB 1 tablet by mouth daily LEVOFLOXACIN 00993063391 No Longer Active Jillina Frazell [employer]LOADER Active NEURONTIN 300 MG CAP 1 cap by mouth three times daily for restless leg 06/22 GABAPENTIN 69926901337 No Longer Active Harinder Hernandez DO Active BENZONATATE 100 MG CAPS 1 cap po TID PRN BENZONATATE 62067245093 No Longer Active Harinder Hernandez DO Active MONTELUKAST SODIUM 10 MG TABS 1 tab po in the evening MONTELUKAST SODIUM 00077169943 No Longer Active Harinder Hernandez DO Active MUPIROCIN 2 % OINT apply to affected area BID x 14 days MUPIROCIN 19332652218 No Longer Active Harinder Hernandez DO Active TYLENOL EXTRA STRENGTH 500 MG TABS as needed ACETAMINOPHEN 69320387845 No Longer Active Harinder Hernandez DO Active PREDNISONE 10 MG TABS 1 tab po daily PREDNISONE 15225821131 No Longer Active Harinder Hernandez DO Active PREDNISONE 20 MG TAB 2 tabs daily for 4 days, 1 tab daily for 4 days, 1/2 tab daily for 4 days PREDNISONE 60215089986 No Longer Active Harinder Hernandez DO Active AZITHROMYCIN 250 MG TABS 2 po qd x 1 day, then 1 po qd x 4 days AZITHROMYCIN 39878077165 No Longer Active Harinder Hernandez DO Active PREDNISONE 20 MG TAB 3 tabs today, then 1 tab twice daily for 3 day, then one daily for three days PREDNISONE 22655411634 No Longer Active Harinder Hernandez DO Active NIFEDIAC CC 30 MG [id number] 1 tablet daily for raynaud's syndrome NIFEDIPINE 64356904865 No Longer Active Tawnya Pardo MA Active AMBIEN 10 MG TAB 1/2 tab by mouth at bedtime as needed for sleep ZOLPIDEM TARTRATE 72502447856 Active Harinder Hernandez DO Active CLONAZEPAM 1 MG TABS 1 tablet at bedtime for insomnia and restless legs 09/14 CLONAZEPAM 60540644563 Active Harinder Hernandez DO Active CLONAZEPAM 0.5 MG TABS 1 tab po daily CLONAZEPAM 68720401049 No Longer Active Harinder Hernandez DO Active PREDNISONE 10 MG TAB 1 tablet daily for COPD PREDNISONE 30793242698 Active Tawnya Pardo MA Active PROAIR HFA 108 (90 BASE) MCG/ACT AERS 2 puffs four times a day as needed 2012 ALBUTEROL SULFATE 50063885903 Active Tawnya Pardo MA Active FLOVENT HFA 110 MCG/ACT AERO 2 puffs inhaled b.i.d. FLUTICASONE PROPIONATE HFA 63163365515 Active Tawnya Pardo MA Active EPIPEN 0.3 MG/0.3ML URIEL DIRECTED EPINEPHRINE Active Jeri Sosa RPT,RMA Active ACIPHEX 20 MG TBEC 1 tab po daily RABEPRAZOLE SODIUM 92767128723 Active Tawnya Pardo MA Active CLONAZEPAM 0.5 MG TABS 1 tab po daily CLONAZEPAM 0.5 MG TABS 163228 CLONAZEPAM Inactive PREDNISONE 20 MG TAB 3 tabs today, then 1 tab twice daily for 3 day, then one daily for three days PREDNISONE 20 MG TAB 931121 PREDNISONE Inactive PREDNISONE 20 MG TAB 2 tabs daily for 4 days, 1 tab daily for 4 days, 1/2 tab daily for 4 days PREDNISONE 20 MG TAB 227995 PREDNISONE Inactive PREDNISONE 10 MG TABS 1 tab po daily PREDNISONE 10 MG TABS 513775 PREDNISONE Inactive TYLENOL EXTRA STRENGTH 500 MG TABS as needed TYLENOL EXTRA STRENGTH 500 MG TABS 386924 ACETAMINOPHEN Inactive MUPIROCIN 2 % OINT apply to affected area BID x 14 days MUPIROCIN 2 % OINT 691884 MUPIROCIN Inactive MONTELUKAST SODIUM 10 MG TABS 1 tab po in the evening MONTELUKAST SODIUM 10 MG TABS 20010818 MONTELUKAST SODIUM Inactive BENZONATATE 100 MG CAPS 1 cap po TID PRN BENZONATATE 100 MG CAPS 120196 BENZONATATE Inactive NEURONTIN 300 MG CAP 1 cap by mouth three times daily for restless leg 06/22 NEURONTIN 300 MG CAP 577884 GABAPENTIN Inactive LEVAQUIN 500 MG TAB 1 tablet by mouth daily LEVAQUIN 500 MG TAB 428668 LEVOFLOXACIN Inactive PREDNISONE 20 MG TAB 1 TID x 2 days, then 1 BID x 3 days, then 1 Daily x 3 days, then stop PREDNISONE 20 MG TAB 817261 PREDNISONE Inactive POTASSIUM CHLORIDE ER 10 MEQ CR-TABS take 1 tab po daily POTASSIUM CHLORIDE ER 10 MEQ CR-TABS POTASSIUM CHLORIDE Inactive PREDNISONE 20 MG TAB 1 tab twice daily for 3 day, then one daily for three days PREDNISONE 20 MG TAB 411522 PREDNISONE Inactive TESSALON PERLES 100 MG CAP 1 to 2 tablets by mouth 3 times daily as needed for cough TESSALON PERLES 100 MG CAP 872041 BENZONATATE Inactive POTASSIUM CHLORIDE CR 10 MEQ [...] nightly for cholesterol LOVASTATIN 40 MG TABS 449783 LOVASTATIN Inactive CEFDINIR 300 MG ORAL CAPS take 1 cap po bid x 10 days CEFDINIR 300 MG ORAL CAPS 194361 CEFDINIR Inactive ACEBUTOLOL HCL 200 MG CAPS 1 cap in the morning and 2 caps in the evening ACEBUTOLOL HCL 200 MG CAPS 740123 ACEBUTOLOL HCL Inactive VENTOLIN HFA 108 (90 BASE) MCG/ACT AERS 2 -4 puffs four times a day PRN 2013 VENTOLIN HFA 108 (90 BASE) MCG/ACT AERS ALBUTEROL SULFATE Inactive LEVAQUIN 500 MG ORAL TABS Take 1 tab po daily x 8 days LEVAQUIN 500 MG ORAL TABS 323433 LEVOFLOXACIN Inactive PREDNISONE 20 MG TAB 2 tabs daily for 4 days, 1 tab daily for 4 days, 1/2 tab daily for 4 days PREDNISONE 20 MG TAB 312282 PREDNISONE Inactive LOVASTATIN 40 MG ORAL TABS Take 1 tab po every hs LOVASTATIN 40 MG ORAL TABS 021009 LOVASTATIN Inactive DILAUDID 2 MG ORAL TABS Take 1/2 tab po every 4 hours as needed for pain 2014 DILAUDID 2 MG ORAL TABS 906432 HYDROMORPHONE HCL Inactive AMITRIPTYLINE HCL 25 MG ORAL TABS 1 q hs prn AMITRIPTYLINE HCL 25 MG ORAL TABS 023832 AMITRIPTYLINE HCL Inactive MECLIZINE HCL 25 MG TAB 1 tablet three times daily for 3 days, then 1/2 tab three times daily for 3 days. MECLIZINE HCL 25 MG TAB 801434 MECLIZINE HCL Inactive AMLODIPINE BESYLATE 5 MG ORAL TABS Take 1 tab po daily AMLODIPINE BESYLATE 5 MG ORAL TABS 562030 AMLODIPINE BESYLATE Inactive TOPIRAMATE 25 MG TABS 1 tab po BID TOPIRAMATE 25 MG TABS 871831 TOPIRAMATE Inactive AZITHROMYCIN 250 MG TABS 2 po qd x 1 day, then 1 po qd x 4 days AZITHROMYCIN 250 MG TABS 6911919 AZITHROMYCIN Inactive AZITHROMYCIN 250 MG TABS 2 po qd x 1 day, then 1 po qd x 4 days AZITHROMYCIN 250 MG TABS 1295656 AZITHROMYCIN Inactive PREDNISONE 20 MG TAB 2 po qd x 5 days PREDNISONE 20 MG TAB 084040 PREDNISONE Inactive Vital Signs Date Name Value [...] Panel - Chemistry sodium, serum 138 mmol/L 973-016 0986/09/24 potassium, serum 3.5 mmol/L 3.5-5.2 chloride, serum [...] 142-424 Encounters Code Encounter Date Provider Facility CPT-81227 Level 3 Est. Patient 18:37:17 CDT Harinder rC [facility] CPT-32772 Level 4 Est. Patient 11:15:54 CDT Nettie Newberry APRN [facility] CPT-30971 Level 3 Est. Patient 16:42:24 CDT Harinder Cr [facility] CPT-44291 Level 3 Est. Patient 15:03:36 CDT Harinder Hernandez [facility] CPT-92921 Level 3 Est. Patient 15:03:20 CDT Harinder Cr [facility] CPT-72012 Level 3 Est. Patient 12:14:34 CDT Harinder Hernandez [facility] CPT-84325 Level 3 Est. Patient 13:47:15 CDT Harinder Hernandez [facility] CPT-25893 Level 3 Est. Patient 14:08:24 CDT Harinder Hernandez [facility] CPT-93152 Level 3 Est. Patient 10:07:15 CDT Harinder Cr [facility] CPT-08767 Level 3 Est. Patient 10:06:59 CDT Harinder Hernandez [facility] CPT-45934 Level 3 Est. Patient 15:53:29 CDT Jae Morgan MD [facility] CPT-78446 Level 3 Est. Patient 17:19:04 CDT Harinder W [facility] CPT-07022 Level 3 Est. Patient 11:13:01 CDT Harinder Hernandez [facility] CPT-80551 Level 3 Est. Patient 09:03:58 CDT Harinder Hernandez [facility] CPT-25453 Level 3 Est. Patient 14:46:45 [employer] Harinder Hernandez [facility] CPT-88156 Level 3 Est. Patient 09:35:49 [employer] Harinder Hernandez [facility] CPT-50985 Level 3 Est. Patient 09:29:37 [employer] Harinder Hernandez [facility] CPT-21966 Level 3 Est. Patient 15:51:07 CDT Harinder Hernandez [facility] CPT-94582 Level 3 Est. Patient 18:13:13 CDT Harinder Cr [facility] CPT-95379 Level 3 Est. Patient 10:44:19 CDT Harinder Cr [facility] CPT-16544 Level 4 Est. Patient 10:07:19 [employer] Harinder Cr [facility] CPT-64926 Level 3 Est. Patient 15:59:32 [employer] Harinder Cr [facility] Procedures Code Procedure Name Date Entry Date Standard Description CPT-JTINJ Asp/Joint Injection 18:38:04 CDT CPT-68406 Immunization Each Additional Inj 17:38:04 CDT CPT-28004 Immunization Single Admin 17:38:04 CDT CPT-71961 Prevnar 13 17:38:04 CDT CPT-27106 Fluzone Quadrivalent preservative free (>=3yrs.) 17:38: 04 CDT CPT-98136 No Charge Offi Visit 11:14:03 CDT CPT-28081 Chest 2V Frontal and Lat 14:00:18 CDT CPT-OV Office Visit 16:10:28 CDT CPT-JTINJ Asp/Joint Injection 09:03:57 CDT CPT-Cryo Cryotherapy 09:35:49 [employer] CPT-JTINJ Asp/Joint Injection 09:34:45 [employer] CPT-J2930 Solu Medrol 125 mg (Methyl Prednisolone Sodium Succinate) 20:37:27 CDT CPT-96537 Abx/Therapy Injection 20:37:27 CDT CPT-52325 Port a cath flush 08:15:51 CDT CPT-98960 Port a cath flush 09:54:16 CDT CPT-36868 Port a cath flush 09:38:02 CDT CPT-51435 Port a cath flush 11:00:27 [employer]
--- OUTSIDE RECORDS SUMMARY | 2017-12-29 05:16 | XMS REPORT | Clinical Summary ---
Author Author Admin, QIE Organization [facility] [employer] Address Unknown Phone Unavailable Allergies, Adverse Reactions, [...] TAB 1 tablet by mouth daily SPIRONOLACTONE [id number] Prince Pimentel Active POTASSIUM CHLORIDE CR 10 MEQ CPCR 1 capsule BID POTASSIUM CHLORIDE 25907582423 Prince Mccain Active FLUOXETINE HCL 10 MG ORAL CAPS 1 po qd for depression/anxiety FLUOXETINE HCL 81176191742 Active Harinder Hernandez DO Active VOLTAREN 1 % GEL apply q 6-8 hour to left arm as needed for pain DICLOFENAC SODIUM 60533331457 Prince Hernandez DO Active LASIX 20 MG TAB 1 tablet by mouth every morning FUROSEMIDE 31587887495 Prince Mccain Active POTASSIUM CHLORIDE 20 MEQ ORAL PACK 1 tab po BID POTASSIUM CHLORIDE 66421069410 Prince Mccain Active ALBUTEROL SULFATE 0.083 % NEBU SOLN 1 vial neb q 4hrs for severe asthma. 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 FLUTICASONE PROPIONATE HFA 58481211370 Active Harinder Hernandez DO Active EPIPEN 2-BRUNA 0.3 MG/0.3ML INJ SOAJ 1 INJ NEEDED EPINEPHRINE 69588406249 Active Harinder Hernandez DO Active PREDNISONE 20 MG TAB 1 tab twice daily for 3 day, then one daily for three days PREDNISONE 52905926039 No Longer Active Harinder Hernandez DO Active PREDNISONE 20 MG TAB 1 tablet twice daily for 2 days, then 1 tablet once daily for 2 days PREDNISONE 50179886667 No Longer Active Harinder Hernandez DO Active ASMANEX 120 METERED DOSES 220 MCG/INH INH AEPB 2 puffs orally twice daily MOMETASONE FUROATE 61977740004 Active Jeri Sosa LPN Active TOPIRAMATE 25 MG TABS 1 tab po BID TOPIRAMATE 21387514281 No Longer Active Nettie Newberry APRN Active AMLODIPINE BESYLATE 5 MG ORAL TABS Take 1 tab po daily AMLODIPINE BESYLATE 55776269549 No Longer Active Nettie Newberry APRN Active MECLIZINE HCL 25 MG TAB 1 tablet three times daily for 3 days, then 1/2 tab three times daily for 3 days. MECLIZINE HCL 66072319261 No Longer Active Nettie Newberry APRN Active AMITRIPTYLINE HCL 25 MG ORAL TABS 1 q hs prn AMITRIPTYLINE HCL 57614899327 No Longer Active Nettie Newberry APRN Active DILAUDID 2 MG ORAL TABS Take 1/2 tab po every 4 hours as needed for pain 2014 HYDROMORPHONE HCL 63264045393 No Longer Active Nettie Newberry APRN Active CLOPIDOGREL BISULFATE 75 MG ORAL TABS 1 tab by mouth once daily CLOPIDOGREL BISULFATE 06453811436 Active Harinder Hernandez DO Active ATORVASTATIN CALCIUM 10 MG ORAL TABS 1 at bedtime ATORVASTATIN CALCIUM 08890375908 Active Tawnya Pardo MA Active LOVASTATIN 40 MG ORAL TABS Take 1 tab po every hs LOVASTATIN 16790090911 No Longer Active Harinder Hernandez DO Active PREDNISONE 20 MG TAB 2 tabs daily for 4 days, 1 tab daily for 4 days, 1/2 tab daily for 4 days PREDNISONE 97485695960 No Longer Active Harinder Hernandez DO Active LEVAQUIN 500 MG ORAL TABS Take 1 tab po daily x 8 days LEVOFLOXACIN 16839357487 No Longer Active Harinder Hernandez DO Active VENTOLIN HFA 108 (90 BASE) MCG/ACT AERS 2 -4 puffs four times a day PRN 2013 ALBUTEROL SULFATE 02441025666 No Longer Active Jeri Sosa LPN Active ACEBUTOLOL HCL 200 MG CAPS 1 cap in the morning and 2 caps in the evening ACEBUTOLOL HCL 30302760816 No Longer Active Harinder Hernandez DO Active CEFDINIR 300 MG ORAL CAPS take 1 cap po bid x 10 days CEFDINIR 38705189722 No Longer Active Harinder Hernandez DO Active LOVASTATIN 40 MG TABS 1 pill by mouth nightly for cholesterol LOVASTATIN 05338853183 No Longer Active Nettie Newberry APRN Active NITROSTAT 0.4 MG SUBL 1 tab under tongueas needed for chest pain ( may take 3 total, 5 min apart, then call 911) NITROGLYCERIN 14843329757 No Longer Active Nettie Newberry MAHENDRA Active POTASSIUM CHLORIDE CR 10 MEQ CPCR 1 capsule by mouth daily 02/14 POTASSIUM CHLORIDE 57056045925 No Longer Active Nettie Newberry MAHENDRA Active TESSALON PERLES 100 MG CAP 1 to 2 tablets by mouth 3 times daily as needed for cough BENZONATATE 70199915460 No Longer Active Nettie Newberry MAHENDRA Active THEOPHYLLINE ER 200 MG ORAL [id number] Take 1 tab every 12 hours THEOPHYLLINE 86677322088 Active Kortney Mccain Active PREDNISONE 20 MG TAB 2 po qd x 5 days PREDNISONE 31537890172 No Longer Active Jae Morgan MD Active AZITHROMYCIN 250 MG TABS 2 po qd x 1 day, then 1 po qd x 4 days AZITHROMYCIN 83619258426 No Longer Active Jae Morgan MD Active PREDNISONE 20 MG TAB 1 tab twice daily for 3 day, then one daily for three days PREDNISONE 93058413755 No Longer Active Jae Morgan MD Active SINGULAIR 10 MG TABS 1 pill by mouth every evening for breathing. MONTELUKAST SODIUM 01859356802 Active Tawnya Pardo MA Active TYLENOL 325 MG TAB 3 by mouth q4h as needed ACETAMINOPHEN 39406388451 Active Harinder Hernandez DO Active POTASSIUM CHLORIDE ER 10 MEQ CR-TABS take 1 tab po daily POTASSIUM CHLORIDE 60324287445 No Longer Active Harinder Hernandez DO Active PREDNISONE 20 MG TAB 1 TID x 2 days, then 1 BID x 3 days, then 1 Daily x 3 days, then stop PREDNISONE 74892245127 No Longer Active John Montemayor APRN Active LEVAQUIN 500 MG TAB 1 tablet by mouth daily LEVOFLOXACIN 94808660776 No Longer Active Jillina Frazell BRICK SORTER Active NEURONTIN 300 MG CAP 1 cap by mouth three times daily for restless leg 06/22 GABAPENTIN 86071636137 No Longer Active Harinder Hernandez DO Active BENZONATATE 100 MG CAPS 1 cap po TID PRN BENZONATATE 37821796167 No Longer Active Harinder Hernandez DO Active MONTELUKAST SODIUM 10 MG TABS 1 tab po in the evening MONTELUKAST SODIUM 76471856248 No Longer Active Harinder Hernandez DO Active MUPIROCIN 2 % OINT apply to affected area BID x 14 days MUPIROCIN 41866948868 No Longer Active Harinder Hernandez DO Active TYLENOL EXTRA STRENGTH 500 MG TABS as needed ACETAMINOPHEN 48143264078 No Longer Active Harinder Hernandez DO Active PREDNISONE 10 MG TABS 1 tab po daily PREDNISONE 18259081153 No Longer Active Harinder Hernandez DO Active PREDNISONE 20 MG TAB 2 tabs daily for 4 days, 1 tab daily for 4 days, 1/2 tab daily for 4 days PREDNISONE 07367360260 No Longer Active Harinder Hernandez DO Active AZITHROMYCIN 250 MG TABS 2 po qd x 1 day, then 1 po qd x 4 days AZITHROMYCIN 66732583349 No Longer Active Harinder Hernandez DO Active PREDNISONE 20 MG TAB 3 tabs today, then 1 tab twice daily for 3 day, then one daily for three days PREDNISONE 92750178497 No Longer Active Harinder Hernandez DO Active NIFEDIAC CC 30 MG [id number] 1 tablet daily for raynaud's syndrome NIFEDIPINE 76534822677 No Longer Active Tawnya Pardo MA Active AMBIEN 10 MG TAB 1/2 tab by mouth at bedtime as needed for sleep ZOLPIDEM TARTRATE 22939406233 Active Ciera Pimentel Active CLONAZEPAM 1 MG TABS 1 tablet at bedtime for insomnia and restless legs 09/14 CLONAZEPAM 60030798917 Active Harinder Hernandez DO Active CLONAZEPAM 0.5 MG TABS 1 tab po daily CLONAZEPAM 77057330569 No Longer Active Harinder Hernandez DO Active PREDNISONE 10 MG TAB 1 tablet daily for COPD PREDNISONE 91081418611 Active Ciera Pimentel Active PROAIR HFA 108 (90 BASE) MCG/ACT AERS 2 puffs four times a day as needed 2012 ALBUTEROL SULFATE 88917061878 Active Harinder Hernandez DO Active FLOVENT HFA 110 MCG/ACT AERO 2 puffs inhaled b.i.d. FLUTICASONE PROPIONATE HFA 49883995418 Active Kortneyalice Mccain Active ACIPHEX 20 MG TBEC 1 tab po daily RABEPRAZOLE SODIUM 02154522222 Active Kaylah Newberry Active CLONAZEPAM 0.5 MG TABS 1 tab po daily CLONAZEPAM 0.5 MG TABS 442921 CLONAZEPAM Inactive PREDNISONE 20 MG TAB 3 tabs today, then 1 tab twice daily for 3 day, then one daily for three days PREDNISONE 20 MG TAB 646541 PREDNISONE Inactive PREDNISONE 20 MG TAB 2 tabs daily for 4 days, 1 tab daily for 4 days, 1/2 tab daily for 4 days PREDNISONE 20 MG TAB 188163 PREDNISONE Inactive PREDNISONE 10 MG TABS 1 tab po daily PREDNISONE 10 MG TABS 512614 PREDNISONE Inactive TYLENOL EXTRA STRENGTH 500 MG TABS as needed TYLENOL EXTRA STRENGTH 500 MG TABS 950800 ACETAMINOPHEN Inactive MUPIROCIN 2 % OINT apply to affected area BID x 14 days MUPIROCIN 2 % OINT 196664 MUPIROCIN Inactive MONTELUKAST SODIUM 10 MG TABS 1 tab po in the evening MONTELUKAST SODIUM 10 MG TABS 20010818 MONTELUKAST SODIUM Inactive BENZONATATE 100 MG CAPS 1 cap po TID PRN BENZONATATE 100 MG CAPS 013248 BENZONATATE Inactive NEURONTIN 300 MG CAP 1 cap by mouth three times daily for restless leg 06/22 NEURONTIN 300 MG CAP 057268 GABAPENTIN Inactive LEVAQUIN 500 MG TAB 1 tablet by mouth daily LEVAQUIN 500 MG TAB 097836 LEVOFLOXACIN Inactive PREDNISONE 20 MG TAB 1 TID x 2 days, then 1 BID x 3 days, then 1 Daily x 3 days, then stop PREDNISONE 20 MG TAB 333949 PREDNISONE Inactive POTASSIUM CHLORIDE ER 10 MEQ CR-TABS take 1 tab po daily POTASSIUM CHLORIDE ER 10 MEQ CR-TABS POTASSIUM CHLORIDE Inactive PREDNISONE 20 MG TAB 1 tab twice daily for 3 day, then one daily for three days PREDNISONE 20 MG TAB 390176 PREDNISONE Inactive TESSALON PERLES 100 MG CAP 1 to 2 tablets by mouth 3 times daily as needed for cough TESSALON PERLES 100 MG CAP 184013 BENZONATATE Inactive POTASSIUM CHLORIDE CR 10 MEQ CPCR 1 capsule by mouth daily 02/14 POTASSIUM CHLORIDE CR 10 MEQ CPCR POTASSIUM CHLORIDE Inactive NITROSTAT 0.4 MG SUBL 1 tab under tongueas needed for chest pain ( may take 3 total, 5 min apart, then call 911) NITROSTAT 0.4 MG SUBL 089273 NITROGLYCERIN Inactive LOVASTATIN 40 MG TABS 1 pill by mouth nightly for cholesterol LOVASTATIN 40 MG TABS 437980 LOVASTATIN Inactive CEFDINIR 300 MG ORAL CAPS take 1 cap po bid x 10 days CEFDINIR 300 MG ORAL CAPS 802063 CEFDINIR Inactive ACEBUTOLOL HCL 200 MG CAPS 1 cap in the morning and 2 caps in the evening ACEBUTOLOL HCL 200 MG CAPS 513225 ACEBUTOLOL HCL Inactive VENTOLIN HFA 108 (90 [...] for 4 days PREDNISONE 20 MG TAB 313728 PREDNISONE Inactive LOVASTATIN 40 MG ORAL TABS Take 1 tab po every hs LOVASTATIN 40 MG ORAL TABS 410536 LOVASTATIN Inactive DILAUDID 2 MG ORAL TABS Take 1/2 tab po every 4 hours as needed for pain 2014 DILAUDID 2 MG ORAL TABS 309143 HYDROMORPHONE HCL Inactive AMITRIPTYLINE HCL 25 MG ORAL TABS 1 q hs prn AMITRIPTYLINE HCL 25 MG ORAL TABS 531114 AMITRIPTYLINE HCL Inactive MECLIZINE HCL 25 MG TAB 1 tablet three times daily for 3 days, then 1/2 tab three times daily for 3 days. MECLIZINE HCL 25 MG TAB 282616 MECLIZINE HCL Inactive AMLODIPINE BESYLATE 5 MG ORAL TABS Take 1 tab po daily AMLODIPINE BESYLATE 5 MG ORAL TABS 886506 AMLODIPINE BESYLATE Inactive TOPIRAMATE 25 MG TABS 1 tab po BID TOPIRAMATE 25 MG TABS 523373 TOPIRAMATE Inactive PREDNISONE 20 MG TAB 1 tablet twice daily for 2 days, then 1 tablet once daily for 2 days PREDNISONE 20 MG TAB 799595 PREDNISONE Inactive PREDNISONE 20 MG TAB 1 tab twice daily for 3 day, then one daily for three days PREDNISONE 20 MG TAB 950055 PREDNISONE Inactive NIFEDIPINE ER 30 MG ORAL [id number] 1 daily NIFEDIPINE ER 30 MG ORAL [id number] NIFEDIPINE Inactive AMLODIPINE BESYLATE 5 MG TABS 1 tablet by mouth daily AMLODIPINE BESYLATE 5 MG TABS 800729 AMLODIPINE BESYLATE Inactive AZITHROMYCIN 250 MG TABS 2 po qd x 1 day, then 1 po qd x 4 days AZITHROMYCIN 250 MG TABS 9817416 AZITHROMYCIN Inactive AZITHROMYCIN 250 MG TABS 2 po qd x 1 day, then 1 po qd x 4 days AZITHROMYCIN 250 MG TABS 8112649 AZITHROMYCIN Inactive PREDNISONE 20 MG TAB 2 po qd x 5 days PREDNISONE 20 MG TAB 957205 PREDNISONE Inactive Vital Signs Date Name Value [...] Panel - Chemistry sodium, serum 137 mmol/L 342-104 4738/01/03 potassium, serum 3.4 mmol/L 3.5-5.2 chloride, serum 102 mmol/L 98-107 carbon dioxide, venous blood 29.2 mmol/L 21.0-32.0 blood glucose 87 mg/dL 65-110 calcium, serum 8.5 mg/dL 8.5-10.1 urea nitrogen, blood 8 mg/dL 7-18 creatinine, serum 0.82 mg/dL 0.55-1.30 sodium, serum 140 mmol/L 931-640 6507/07/13 potassium, serum 3.2 mmol/L 3.5-5.2 chloride, serum [...] ... - Chemistry sodium, serum 141 mmol/L 145-918 5365/08/07 carbon dioxide, venous blood 34.0 mmol/L 21.0-32.0 [...] Magnesium - Chemistry cholesterol, serum 180 mg/dL 262-001 5728/08/08 triglyceride, serum, fasting 92 mg/dL 30-200 HDL cholesterol, serum 66 mg/dL 32-96 LDL cholesterol, serum 96 mg/dL 0-130 sodium, serum 142 mmol/L 397-790 0810/08/08 carbon dioxide, venous blood 27.4 mmol/L 21.0-32.0 [...] 10.0-20.0 Encounters Code Encounter Date Provider Facility CPT-02775 Level 4 Est. Patient 14:45:25 CDT Harinder Hernandez [facility] CPT-66239 Level 4 Est. Patient 09:15:13 CDT Harinder Cr [facility] CPT-98382 Level 3 Est. Patient 11:51:58 CDT Harinder Cr [facility] CPT-37199 Level 3 Est. Patient 11:30:05 CDT Harinder Cr [facility] CPT-84060 Level 4 Est. Patient 10:19:23 CDT Harinder Cr [facility] CPT-95810 Level 3 Est. Patient 09:58:58 CDT Harinder Cr [facility] CPT-33552 Level 3 Est. Patient 12:37:21 CDT Harinder Cr [facility] CPT-79353 Level 3 Est. Patient 18:37:17 CDT Harinder Cr [facility] CPT-71250 Level 4 Est. Patient 11:15:54 CDT Nettie Rohith [facility] CPT-00553 Level 3 Est. Patient 16:42:24 CDT Harinder Cr [facility] CPT-00655 Level 3 Est. Patient 15:03:36 CDT Harinder Cr [facility] CPT-12928 Level 3 Est. Patient 15:03:20 CDT Harinder Cr [facility] CPT-65491 Level 3 Est. Patient 12:14:34 CDT Harinder Shaye [facility] CPT-34557 Level 3 Est. Patient 13:47:15 CDT Harinder Cr [facility] CPT-35344 Level 3 Est. Patient 14:08:24 CDT Harinder Cr [facility] CPT-38113 Level 3 Est. Patient 10:07:15 CDT Harinder Hernandez [facility] CPT-36718 Level 3 Est. Patient 10:06:59 CDT Harinder Hernandez [facility] CPT-29182 Level 3 Est. Patient 15:53:29 CDT Jae Morgan MD [facility] CPT-03837 Level 3 Est. Patient 17:19:04 CDT Harinder Hernandez [facility] CPT-13284 Level 3 Est. Patient 11:13:01 CDT Harinder Hernandez [facility] CPT-93126 Level 3 Est. Patient 09:03:58 CDT Harnider Hernandez [facility] CPT-06454 Level 3 Est. Patient 14:46:45 [employer] Harinder Hernandez [facility] CPT-87876 Level 3 Est. Patient 09:35:49 [employer] Harinder Hernandez [facility] CPT-92947 Level 3 Est. Patient 09:29:37 [employer] Harinder Hernandez [facility] CPT-28547 Level 3 Est. Patient 15:51:07 CDT Harinder Hernandez [facility] CPT-42191 Level 3 Est. Patient 18:13:13 CDT Harinder Hernandez [facility] CPT-33896 Level 3 Est. Patient 10:44:19 CDT Harinder Shaye Hernandez [facility] CPT-30489 Level 4 Est. Patient 10:07:19 [employer] Harinder Shaye Hernandez [facility] CPT-83266 Level 3 Est. Patient 15:59:32 [employer] Harinder Cr [facility] Procedures Code Procedure Name Date Entry Date Standard Description CPT-90669 Abd compl w upright - XRAY USE ONLY 14:48:09 CDT 02/18 CPT-17536 Port a cath flush 13:46:05 CDT CPT-43863 Hip, complete, 2-3 views - XRAY USE ONLY 10:28:40 CDT CPT-01629 BMP - LAB USE ONLY 16:45:09 [employer] CPT-35306 Port a cath flush 12:00:13 [employer] CPT-TCMM Transitional Care Mgmt-Moderate 11:20:16 [employer] CPT-88992 First Vx - Ix admin for Medicare patients 17:35:15 CDT CPT-87332 Fluzone Preservative Free Intramuscular Suspension 17:35 :15 CDT CPT-27261 Microalbumin - LAB USE ONLY 11:52:05 CDT CPT-TCMM Transitional Care Mgmt-Moderate 11:33:57 CDT CPT-99198 No Charge Offi Visit 14:11:29 CDT CPT-73983 Magnesium - LAB USE ONLY 10:45:44 CDT CPT-96035 Lipid - LAB USE ONLY 10:45:44 CDT CPT-86250 CBC - LAB USE ONLY 10:45:44 CDT CPT-68130 Venipuncture Draw Fee 10:45:43 CDT CPT-45901 Venipuncture Draw Fee 18:21:27 CDT CPT-JTINJ Asp/Joint Injection 18:38:04 CDT CPT-59479 Immunization Each Additional Inj 17:38:04 CDT CPT-61839 Immunization Single Admin 17:38:04 CDT CPT-52009 Prevnar 13 17:38:04 CDT CPT-81366 Fluzone Quadrivalent preservative free (>=3yrs.) 17:38: 04 CDT CPT-47672 No Charge Offi Visit 11:14:03 CDT CPT-45353 Chest 2V Frontal and Lat 14:00:18 CDT CPT-OV Office Visit 16:10:28 CDT CPT-JTINJ Asp/Joint Injection 09:03:57 CDT CPT-Cryo Cryotherapy 09:35:49 [employer] CPT-JTINJ Asp/Joint Injection 09:34:45 A[employer]IC [employer] CPT-J2930 Solu Medrol 125 mg (Methyl Prednisolone Sodium Succinate) 20:37:27 CDT CPT-91755 Abx/Therapy Injection 20:37:27 CDT CPT-31526 Port a cath flush 08:15:51 CDT CPT-82214 Port a cath flush 09:54:16 CDT CPT-31085 Port a cath flush 09:38:02 CDT CPT-39369 Port a cath flush 11:00:27 A[employer]ATIC LAB[employer]ER
--- OUTSIDE RECORDS SUMMARY | 2017-12-29 05:17 | XMS REPORT | Clinical Summary ---
Author Author Admin, QIE Organization [facility] Address Unknown Phone Unavailable Allergies, Adverse [...] Harinder Hernandez DO BACLOFEN Critical Active Harinder Hernanedz DO ASA Critical Active Harinder Hernandez DO [...] neoplasms of colon Pneumonia 486 Resolved Harinder Hernanedz DO Pneumonia , organism unspecified Bacteremia 790.7 [...] 4hrs PRN Wheezing Dx: J44.1 ALBUTEROL SULFATE 65649619544 Active Kortney Mccain Active AMLODIPINE BESYLATE 5 MG TABS 1 tablet by mouth daily AMLODIPINE BESYLATE 04180795133 Active Harinder Hernandez DO Active NIFEDIPINE ER 30 MG ORAL [id number] 1 daily NIFEDIPINE 45564159865 No Longer Active Harinder Hernandez DO Active POTASSIUM CHLORIDE 20 MEQ ORAL PACK Take 1 tablet by mouth daily POTASSIUM CHLORIDE 99330678379 Active Ciera Pimentel Active FLOVENT HFA 110 MCG/ACT AERO 2 puffs inhaled b.i.d. FLUTICASONE PROPIONATE HFA 72078367710 Active Harinder Hernandez DO Active POTASSIUM CHLORIDE CR 10 MEQ CPCR 1 capsule by mouth daily POTASSIUM CHLORIDE 64386492981 Active Harinder Hernandez DO Active EPIPEN 2-BRUNA 0.3 MG/0.3ML INJ SOAJ 1 INJ NEEDED EPINEPHRINE 80240898997 Active Harinder Hernandez DO Active PREDNISONE 20 MG TAB 1 tab twice daily for 3 day, then one daily for three days PREDNISONE 50170505176 No Longer Active Harinder Hernandez DO Active PREDNISONE 20 MG TAB 1 tablet twice daily for 2 days, then 1 tablet once daily for 2 days PREDNISONE 83020095186 No Longer Active Harinder Hernandez DO Active ASMANEX 120 METERED DOSES 220 MCG/INH INH AEPB 2 puffs orally twice daily MOMETASONE FUROATE 14534660504 Active Jeri Sosa RPT,RMA Active TOPIRAMATE 25 MG TABS 1 tab po BID TOPIRAMATE 42947674001 No Longer Active Nettie Newberry APRN Active AMLODIPINE BESYLATE 5 MG ORAL TABS Take 1 tab po daily AMLODIPINE BESYLATE 02382793338 No Longer Active Nettie Newberry MAHENDRA Active MECLIZINE HCL 25 MG TAB 1 tablet three times daily for 3 days, then 1/2 tab three times daily for 3 days. MECLIZINE HCL 24837422884 No Longer Active Nettie Newberry MAHENDRA Active AMITRIPTYLINE HCL 25 MG ORAL TABS 1 q hs prn AMITRIPTYLINE HCL 06198665087 No Longer Active Nettie Newberry MAHENDRA Active DILAUDID 2 MG ORAL TABS Take 1/2 tab po every 4 hours as needed for pain 2014 HYDROMORPHONE HCL 07789362067 No Longer Active Nettie Newberry MAHENDRA Active CLOPIDOGREL BISULFATE 75 MG ORAL TABS 1 tab by mouth once daily CLOPIDOGREL BISULFATE 61460249466 Active Harinder Hernandez DO Active ATORVASTATIN CALCIUM 10 MG ORAL TABS 1 at bedtime ATORVASTATIN CALCIUM 40757872891 Active Tawnya Pardo MA Active LOVASTATIN 40 MG ORAL TABS Take 1 tab po every hs LOVASTATIN 56172223685 No Longer Active Harinder Hernandez DO Active PREDNISONE 20 MG TAB 2 tabs daily for 4 days, 1 tab daily for 4 days, 1/2 tab daily for 4 days PREDNISONE 17666331738 No Longer Active Harinder Hernandez DO Active LEVAQUIN 500 MG ORAL TABS Take 1 tab po daily x 8 days LEVOFLOXACIN 40853450954 No Longer Active Harinder Hernandez DO Active VENTOLIN HFA 108 (90 BASE) MCG/ACT AERS 2 -4 puffs four times a day PRN 2013 ALBUTEROL SULFATE 03284067045 No Longer Active Jeri Sosa RPT,RMA Active ACEBUTOLOL HCL 200 MG CAPS 1 cap in the morning and 2 caps in the evening ACEBUTOLOL HCL 86205780372 No Longer Active Harinder Hernandez DO Active CEFDINIR 300 MG ORAL CAPS take 1 cap po bid x 10 days CEFDINIR 45447586916 No Longer Active Harinder Hernandez DO Active LOVASTATIN 40 MG TABS 1 pill by mouth nightly for cholesterol LOVASTATIN 50183053131 No Longer Active Nettieog Newberry APRN Active NITROSTAT 0.4 MG SUBL 1 tab under tongueas needed for chest pain ( may take 3 total, 5 min apart, then call 911) NITROGLYCERIN 61817698739 No Longer Active Nettie Newberry APRN Active POTASSIUM CHLORIDE CR 10 MEQ CPCR 1 capsule by mouth daily 02/14 POTASSIUM CHLORIDE 25500346157 No Longer Active Nettie Newberry APRN Active TESSALON PERLES 100 MG CAP 1 to 2 tablets by mouth 3 times daily as needed for cough BENZONATATE 84959292839 No Longer Active Nettie Newberry APRN Active THEOPHYLLINE ER 200 MG ORAL [id number] Take 1 tab every 12 hours THEOPHYLLINE 75353260600 Active Tawnya Pardo MA Active PREDNISONE 20 MG TAB 2 po qd x 5 days PREDNISONE 52870142382 No Longer Active Jae Morgan MD Active AZITHROMYCIN 250 MG TABS 2 po qd x 1 day, then 1 po qd x 4 days AZITHROMYCIN 05554949737 No Longer Active Jae Morgan MD Active PREDNISONE 20 MG TAB 1 tab twice daily for 3 day, then one daily for three days PREDNISONE 94257660904 No Longer Active Jae Morgan MD Active SINGULAIR 10 MG TABS 1 pill by mouth every evening for breathing. MONTELUKAST SODIUM 97053348050 Active Tawnya Pardo MA Active TYLENOL 325 MG TAB 3 by mouth q4h as needed ACETAMINOPHEN 12354350446 Active Harinder Hernandez DO Active POTASSIUM CHLORIDE ER 10 MEQ CR-TABS take 1 tab po daily POTASSIUM CHLORIDE 56920848241 No Longer Active Harinder Hernandez DO Active PREDNISONE 20 MG TAB 1 TID x 2 days, then 1 BID x 3 days, then 1 Daily x 3 days, then stop PREDNISONE 26656683849 No Longer Active Jillina Frazell [employer] Active LEVAQUIN 500 MG TAB 1 tablet by mouth daily LEVOFLOXACIN 10814806151 No Longer Active Jillina Frazell [employer] Active NEURONTIN 300 MG CAP 1 cap by mouth three times daily for restless leg 06/22 GABAPENTIN 06839220792 No Longer Active Harinder Hernandez DO Active BENZONATATE 100 MG CAPS 1 cap po TID PRN BENZONATATE 59857692820 No Longer Active Harinder Hernandez DO Active MONTELUKAST SODIUM 10 MG TABS 1 tab po in the evening MONTELUKAST SODIUM 78458371396 No Longer Active Harinder Hernandez DO Active MUPIROCIN 2 % OINT apply to affected area BID x 14 days MUPIROCIN 90950279079 No Longer Active Harinder Hernandez DO Active TYLENOL EXTRA STRENGTH 500 MG TABS as needed ACETAMINOPHEN 16731700273 No Longer Active Harinder Hernandez DO Active PREDNISONE 10 MG TABS 1 tab po daily PREDNISONE 33253129707 No Longer Active Harinder Hernandez DO Active PREDNISONE 20 MG TAB 2 tabs daily for 4 days, 1 tab daily for 4 days, 1/2 tab daily for 4 days PREDNISONE 86544191104 No Longer Active Harinder Hernandez DO Active AZITHROMYCIN 250 MG TABS 2 po qd x 1 day, then 1 po qd x 4 days AZITHROMYCIN 52042064298 No Longer Active Harinder Hernandez DO Active PREDNISONE 20 MG TAB 3 tabs today, then 1 tab twice daily for 3 day, then one daily for three days PREDNISONE 03160986268 No Longer Active Harinder Hernandez DO Active NIFEDIAC CC 30 MG [id number] 1 tablet daily for raynaud's syndrome NIFEDIPINE 52075521366 No Longer Active Tawnya Pardo MA Active AMBIEN 10 MG TAB 1/2 tab by mouth at bedtime as needed for sleep ZOLPIDEM TARTRATE 92328350722 Active Kortney Mccain Active CLONAZEPAM 1 MG TABS 1 tablet at bedtime for insomnia and restless legs 09/14 CLONAZEPAM 32646232284 Active Harinder Hernandez DO Active CLONAZEPAM 0.5 MG TABS 1 tab po daily CLONAZEPAM 52114916293 No Longer Active Harinder Hernandez DO Active PREDNISONE 10 MG TAB 1 tablet daily for COPD PREDNISONE 33266659197 Active Tawnya Pardo MA Active PROAIR HFA 108 (90 BASE) MCG/ACT AERS 2 puffs four times a day as needed 2012 ALBUTEROL SULFATE 97084413107 Active Harinder Hernandez DO Active FLOVENT HFA 110 MCG/ACT AERO 2 puffs inhaled b.i.d. FLUTICASONE PROPIONATE HFA 01065347513 Active Kortney Mccain Active ACIPHEX 20 MG TBEC 1 tab po daily RABEPRAZOLE SODIUM 83167380230 Active Kaylah Newberry Active CLONAZEPAM 0.5 MG TABS 1 tab po daily CLONAZEPAM 0.5 MG TABS 234905 CLONAZEPAM Inactive PREDNISONE 20 MG TAB 3 tabs today, then 1 tab twice daily for 3 day, then one daily for three days PREDNISONE 20 MG TAB 237658 PREDNISONE Inactive PREDNISONE 20 MG TAB 2 tabs daily for 4 days, 1 tab daily for 4 days, 1/2 tab daily for 4 days PREDNISONE 20 MG TAB 663119 PREDNISONE Inactive PREDNISONE 10 MG TABS 1 tab po daily PREDNISONE 10 MG TABS 776389 PREDNISONE Inactive TYLENOL EXTRA STRENGTH 500 MG TABS as needed TYLENOL EXTRA STRENGTH 500 MG TABS 713403 ACETAMINOPHEN Inactive MUPIROCIN 2 % OINT apply to affected area BID x 14 days MUPIROCIN 2 % OINT 099199 MUPIROCIN Inactive MONTELUKAST SODIUM 10 MG TABS 1 tab po in the evening MONTELUKAST SODIUM 10 MG TABS 20010818 MONTELUKAST SODIUM Inactive BENZONATATE 100 MG CAPS 1 cap po TID PRN BENZONATATE 100 MG CAPS 19730321 BENZONATATE Inactive NEURONTIN 300 MG CAP 1 cap by mouth three times daily for restless leg 06/22 NEURONTIN 300 MG CAP 042215 GABAPENTIN Inactive LEVAQUIN 500 MG TAB 1 tablet by mouth daily LEVAQUIN 500 MG TAB 521199 LEVOFLOXACIN Inactive PREDNISONE 20 MG TAB 1 TID x 2 days, then 1 BID x 3 days, then 1 Daily x 3 days, then stop PREDNISONE 20 MG TAB 318629 PREDNISONE Inactive POTASSIUM CHLORIDE ER 10 MEQ CR-TABS take 1 tab po daily POTASSIUM CHLORIDE ER 10 MEQ CR-TABS POTASSIUM CHLORIDE Inactive PREDNISONE 20 MG TAB 1 tab twice daily for 3 day, then one daily for three days PREDNISONE 20 MG TAB 252968 PREDNISONE Inactive TESSALON PERLES 100 MG CAP [...] then call 911) NITROSTAT 0.4 MG SUBL 354346 NITROGLYCERIN Inactive LOVASTATIN 40 MG TABS 1 pill by mouth nightly for cholesterol LOVASTATIN 40 MG TABS 200358 LOVASTATIN Inactive CEFDINIR 300 MG ORAL CAPS take 1 cap po bid x 10 days CEFDINIR 300 MG ORAL CAPS 20021018 CEFDINIR Inactive ACEBUTOLOL HCL 200 MG CAPS 1 cap in the morning and 2 caps in the evening ACEBUTOLOL HCL 200 MG CAPS 904721 ACEBUTOLOL HCL Inactive VENTOLIN HFA 108 (90 BASE) MCG/ACT AERS 2 -4 puffs four times a day PRN 2013 VENTOLIN HFA 108 (90 BASE) MCG/ACT AERS ALBUTEROL SULFATE Inactive LEVAQUIN 500 MG ORAL TABS Take 1 tab po daily x 8 days LEVAQUIN 500 MG ORAL TABS 827314 LEVOFLOXACIN Inactive PREDNISONE 20 MG TAB 2 tabs daily for 4 days, 1 tab daily for 4 days, 1/2 tab daily for 4 days PREDNISONE 20 MG TAB 173637 PREDNISONE Inactive LOVASTATIN 40 MG ORAL TABS Take 1 tab po every hs LOVASTATIN 40 MG ORAL TABS 919428 LOVASTATIN Inactive DILAUDID 2 MG ORAL TABS Take 1/2 tab po every 4 hours as needed for pain 2014 DILAUDID 2 MG ORAL TABS 236968 HYDROMORPHONE HCL Inactive AMITRIPTYLINE HCL 25 MG ORAL TABS 1 q hs prn AMITRIPTYLINE HCL 25 MG ORAL TABS 085672 AMITRIPTYLINE HCL Inactive MECLIZINE HCL 25 MG TAB 1 tablet three times daily for 3 days, then 1/2 tab three times daily for 3 days. MECLIZINE HCL 25 MG TAB 155644 MECLIZINE HCL Inactive AMLODIPINE BESYLATE 5 MG ORAL TABS Take 1 tab po daily AMLODIPINE BESYLATE 5 MG ORAL TABS 210595 AMLODIPINE BESYLATE Inactive TOPIRAMATE 25 MG TABS 1 tab po BID TOPIRAMATE 25 MG TABS 734071 TOPIRAMATE Inactive PREDNISONE 20 MG TAB 1 tablet twice daily for 2 days, then 1 tablet once daily for 2 days PREDNISONE 20 MG TAB 080161 PREDNISONE Inactive PREDNISONE 20 MG TAB 1 tab twice daily for 3 day, then one daily for three days PREDNISONE 20 MG TAB 832379 PREDNISONE Inactive NIFEDIPINE ER 30 MG ORAL [id number] 1 daily NIFEDIPINE ER 30 MG ORAL [id number] NIFEDIPINE Inactive AZITHROMYCIN 250 MG TABS 2 po qd x 1 day, then 1 po qd x 4 days AZITHROMYCIN 250 MG TABS 7966904 AZITHROMYCIN Inactive AZITHROMYCIN 250 MG TABS 2 po qd x 1 day, then 1 po qd x 4 days AZITHROMYCIN 250 MG TABS 2134628 AZITHROMYCIN Inactive PREDNISONE 20 MG TAB 2 po qd x 5 days PREDNISONE 20 MG TAB 563656 PREDNISONE Inactive Vital Signs Date Name Value [...] Panel - Chemistry sodium, serum 137 mmol/L 194-232 5926/01/03 potassium, serum 3.4 mmol/L 3.5-5.2 chloride, serum [...] Magnesium - Chemistry cholesterol, serum 180 mg/dL 811-642 2500/08/08 triglyceride, serum, fasting 92 mg/dL 30-200 HDL cholesterol, serum 66 mg/dL 32-96 LDL cholesterol, serum 96 mg/dL 0-130 sodium, serum 142 mmol/L 815-028 8886/08/08 carbon dioxide, venous blood 27.4 mmol/L 21.0-32.0 [...] 10.0-20.0 Encounters Code Encounter Date Provider Facility CPT-71682 Level 3 Est. Patient 09:58:58 CDT Harinder Cr [facility] CPT-20389 Level 3 Est. Patient 12:37:21 CDT Harinder Shaye [facility] CPT-23784 Level 3 Est. Patient 18:37:17 CDT Harinder Shaye [facility] CPT-01030 Level 4 Est. Patient 11:15:54 CDT Nettie Rohith [facility] CPT-76796 Level 3 Est. Patient 16:42:24 CDT Harinder Shaye [facility] CPT-99455 Level 3 Est. Patient 15:03:36 CDT Harinder Shaye [facility] CPT-25669 Level 3 Est. Patient 15:03:20 CDT Harinder Cr [facility] CPT-74190 Level 3 Est. Patient 12:14:34 CDT Harinder Cr [facility] CPT-44085 Level 3 Est. Patient 13:47:15 CDT Harinder Cr [facility] CPT-59889 Level 3 Est. Patient 14:08:24 CDT Harinder Hernandez [facility] CPT-48432 Level 3 Est. Patient 10:07:15 CDT Harinder Hernandez [facility] CPT-46434 Level 3 Est. Patient 10:06:59 CDT Harinder Hernandez [facility] CPT-29662 Level 3 Est. Patient 15:53:29 CDT Jae Morgan MD [facility] CPT-71054 Level 3 Est. Patient 17:19:04 CDT Harinder Hernandez [facility] CPT-51416 Level 3 Est. Patient 11:13:01 CDT Harinder Hernandez [facility] CPT-92101 Level 3 Est. Patient 09:03:58 CDT Harinder Hernandez [facility] CPT-19932 Level 3 Est. Patient 14:46:45 [employer] Harinder Hernandez [facility] CPT-22277 Level 3 Est. Patient 09:35:49 [employer] Harinder Hernandez [facility] CPT-15422 Level 3 Est. Patient 09:29:37 [employer] Harinder Hernandez [facility] CPT-26497 Level 3 Est. Patient 15:51:07 CDT Harinder Hernandez [facility] CPT-44279 Level 3 Est. Patient 18:13:13 CDT Harinder Hernandez [facility] CPT-73216 Level 3 Est. Patient 10:44:19 CDT Harinder Hernandez [facility] CPT-00170 Level 4 Est. Patient 10:07:19 [employer] Harinder Hernandez [facility] CPT-04743 Level 3 Est. Patient 15:59:32 [employer] Harinder Cr [facility] Procedures Code Procedure Name Date Entry Date Standard Description CPT-66920 BMP - LAB USE ONLY 16:45:09 [employer] CPT-39941 Port a cath flush 12:00:13 [employer] CPT-TCMM Transitional Care Mgmt-Moderate 11:20:16 [employer] CPT-20948 First Vx - Ix admin for Medicare patients 17:35:15 CDT CPT-36186 Fluzone Preservative Free Intramuscular Suspension 17:35 :15 CDT CPT-25353 Microalbumin - LAB USE ONLY 11:52:05 CDT CPT-TCMM Transitional Care Mgmt-Moderate 11:33:57 CDT CPT-49312 No Charge Offi Visit 14:11:29 CDT CPT-53031 Magnesium - LAB USE ONLY 10:45:44 CDT CPT-99633 Lipid - LAB USE ONLY 10:45:44 CDT CPT-28596 CBC - LAB USE ONLY 10:45:44 CDT CPT-77054 Venipuncture Draw Fee 10:45:43 CDT CPT-85752 Venipuncture Draw Fee 18:21:27 CDT CPT-JTINJ Asp/Joint Injection 18:38:04 CDT CPT-51709 Immunization Each Additional Inj 17:38:04 CDT CPT-37290 Immunization Single Admin 17:38:04 CDT CPT-25472 Prevnar 13 17:38:04 CDT CPT-42644 Fluzone Quadrivalent preservative free (>=3yrs.) 17:38: 04 CDT CPT-87266 No Charge Offi Visit 11:14:03 CDT CPT-38054 Chest 2V Frontal and Lat 14:00:18 CDT CPT-OV Office Visit 16:10:28 CDT CPT-JTINJ Asp/Joint Injection 09:03:57 CDT CPT-Cryo Cryotherapy 09:35:49 [employer] CPT-JTINJ Asp/Joint Injection 09:34:45 [employer] CPT-J2930 Solu Medrol 125 mg (Methyl Prednisolone Sodium Succinate) 20:37:27 CDT CPT-25112 Abx/Therapy Injection 20:37:27 CDT CPT-05166 Port a cath flush 08:15:51 CDT CPT-13697 Port a cath flush 09:54:16 CDT CPT-07700 Port a cath flush 09:38:02 CDT CPT-54643 Port a cath flush 11:00:27 [employer]
--- OUTSIDE RECORDS SUMMARY | 2017-12-29 05:19 | XMS REPORT | Clinical Summary ---
Author Author Admin, QIE Organization [facility] [employer] Address Unknown Phone Unavailable Allergies, Adverse Reactions, [...] Comment Standard Description Annotate Asthma 493.90 Active Hairnder Hernandez DO Asthma, unspecified C O P [...] catheter Back pain, lumbar 724.2 Resolved Harinder Hrenandez DO Lumbago Insomnia 780.52 Resolved Harinder Hernandez [...] malignant neoplasms of colon Pneumonia 486 Resolved Harnider Hernandez DO Pneumonia , organism unspecified Bacteremia [...] against streptococcus pneumoniae ( Pneumococcus) V03.82 Resolved Harnider W David DO Need for prophylactic vaccination [...] imperative to have this agent ALBUTEROL SULFATE 52573915366 Active Harinder Hernandez DO Active NIFEDIAC CC 30 MG [id number] 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 NIFEDIPINE 75058577218 Active Harinder Hernandez DO Active AMLODIPINE BESYLATE 5 MG TABS 1 tablet by mouth daily AMLODIPINE BESYLATE 80967346099 No Longer Active Harinder Hernandez DO Active TOPAMAX 25 MG ORAL TABS 1 tab po BID TOPIRAMATE 50649182669 Active Kortney Mccain Active FLUTICASONE PROPIONATE 50 MCG/ACT SUSP 2 sprays per nostril daily PRN Allergies FLUTICASONE PROPIONATE 29871634160 Active Kortney Mccain Active NIFEDIPINE ER 30 MG ORAL [id number] 1 daily NIFEDIPINE 21322839135 No Longer Active Harinder Hernandez DO Active POTASSIUM CHLORIDE 20 MEQ ORAL PACK Take 1 tablet by mouth daily POTASSIUM CHLORIDE 05411361075 Active Ciera Pimentel Active FLOVENT HFA 110 MCG/ACT AERO 2 puffs inhaled b.i.d. FLUTICASONE PROPIONATE HFA 63893855576 Active Harinder Hernandez DO Active POTASSIUM CHLORIDE CR 10 MEQ CPCR 1 capsule by mouth daily POTASSIUM CHLORIDE 63948406439 Active Harinder Hernandez DO Active EPIPEN 2-BRUNA 0.3 MG/0.3ML INJ SOAJ 1 INJ NEEDED EPINEPHRINE 43237380940 Active Harinder Hernandez DO Active PREDNISONE 20 MG TAB 1 tab twice daily for 3 day, then one daily for three days PREDNISONE 37795051617 No Longer Active Harinder Hernandez DO Active PREDNISONE 20 MG TAB 1 tablet twice daily for 2 days, then 1 tablet once daily for 2 days PREDNISONE 32074481232 No Longer Active Harinder Hernandez DO Active ASMANEX 120 METERED DOSES 220 MCG/INH INH AEPB 2 puffs orally twice daily MOMETASONE FUROATE 30078750950 Active Jeri Sosa RPT,RMA Active TOPIRAMATE 25 MG TABS 1 tab po BID TOPIRAMATE 61364193959 No Longer Active Nettie Newberry APRN Active AMLODIPINE BESYLATE 5 MG ORAL TABS Take 1 tab po daily AMLODIPINE BESYLATE 48017830000 No Longer Active Nettie Newberry APRN Active MECLIZINE HCL 25 MG TAB 1 tablet three times daily for 3 days, then 1/2 tab three times daily for 3 days. MECLIZINE HCL 24876761127 No Longer Active Nettie Newberry APRN Active AMITRIPTYLINE HCL 25 MG ORAL TABS 1 q hs prn AMITRIPTYLINE HCL 52194332634 No Longer Active Nettie Newberry APRN Active DILAUDID 2 MG ORAL TABS Take 1/2 tab po every 4 hours as needed for pain 2014 HYDROMORPHONE HCL 66377494588 No Longer Active Nettie Newberry APRN Active CLOPIDOGREL BISULFATE 75 MG ORAL TABS 1 tab by mouth once daily CLOPIDOGREL BISULFATE 23601631890 Active Harinder Hernandez DO Active ATORVASTATIN CALCIUM 10 MG ORAL TABS 1 at bedtime ATORVASTATIN CALCIUM 73308421901 Active Tawnya Pardo MA Active LOVASTATIN 40 MG ORAL TABS Take 1 tab po every hs LOVASTATIN 08327744574 No Longer Active Harinder Hernandez DO Active PREDNISONE 20 MG TAB 2 tabs daily for 4 days, 1 tab daily for 4 days, 1/2 tab daily for 4 days PREDNISONE 85041798129 No Longer Active Harinder Hernandez DO Active LEVAQUIN 500 MG ORAL TABS Take 1 tab po daily x 8 days LEVOFLOXACIN 41775930674 No Longer Active Harinder Hernandez DO Active VENTOLIN HFA 108 (90 BASE) MCG/ACT AERS 2 -4 puffs four times a day PRN 2013 ALBUTEROL SULFATE 99810456419 No Longer Active Jeri Sosa RPT,RMA Active ACEBUTOLOL HCL 200 MG CAPS 1 cap in the morning and 2 caps in the evening ACEBUTOLOL HCL 44538310678 No Longer Active Harinder Hernandez DO Active CEFDINIR 300 MG ORAL CAPS take 1 cap po bid x 10 days CEFDINIR 18845964323 No Longer Active Harinder Hernandez DO Active LOVASTATIN 40 MG TABS 1 pill by mouth nightly for cholesterol LOVASTATIN 27859019431 No Longer Active Nettie Newberry APRN Active NITROSTAT 0.4 MG SUBL 1 tab under tongueas needed for chest pain ( may take 3 total, 5 min apart, then call 911) NITROGLYCERIN 52573749408 No Longer Active Nettie Newberry APRN Active POTASSIUM CHLORIDE CR 10 MEQ CPCR 1 capsule by mouth daily 02/14 POTASSIUM CHLORIDE 21346516347 No Longer Active Nettie Newberry APRN Active TESSALON PERLES 100 MG CAP 1 to 2 tablets by mouth 3 times daily as needed for cough BENZONATATE 70902904382 No Longer Active Nettie Newberry APRN Active THEOPHYLLINE ER 200 MG ORAL [id number] Take 1 tab every 12 hours THEOPHYLLINE 92633292377 Active Tawnya Pardo MA Active PREDNISONE 20 MG TAB 2 po qd x 5 days PREDNISONE 59986854165 No Longer Active Jae Morgan MD Active AZITHROMYCIN 250 MG TABS 2 po qd x 1 day, then 1 po qd x 4 days AZITHROMYCIN 05670850421 No Longer Active Jae Morgan MD Active PREDNISONE 20 MG TAB 1 tab twice daily for 3 day, then one daily for three days PREDNISONE 97003950035 No Longer Active Jae Mogran MD Active SINGULAIR 10 MG TABS 1 pill by mouth every evening for breathing. MONTELUKAST SODIUM 34505938779 Active Tawnya Pardo MA Active TYLENOL 325 MG TAB 3 by mouth q4h as needed ACETAMINOPHEN 39433953725 Active Harinder Hernandez DO Active POTASSIUM CHLORIDE ER 10 MEQ CR-TABS take 1 tab po daily POTASSIUM CHLORIDE 83257415014 No Longer Active Harinder Hernandez DO Active PREDNISONE 20 MG TAB 1 TID x 2 days, then 1 BID x 3 days, then 1 Daily x 3 days, then stop PREDNISONE 20024751646 No Longer Active Jillina Frazell [employer] Active LEVAQUIN 500 MG TAB 1 tablet by mouth daily LEVOFLOXACIN 64363291639 No Longer Active Jillina Frazell [employer] Active NEURONTIN 300 MG CAP 1 cap by mouth three times daily for restless leg 06/22 GABAPENTIN 57627655317 No Longer Active Harinder Hernandez DO Active BENZONATATE 100 MG CAPS 1 cap po TID PRN BENZONATATE 15111225522 No Longer Active Harinder Hernadnez DO Active MONTELUKAST SODIUM 10 MG TABS 1 tab po in the evening MONTELUKAST SODIUM 23447155586 No Longer Active Harinder Hernandez DO Active MUPIROCIN 2 % OINT apply to affected area BID x 14 days MUPIROCIN 03314521707 No Longer Active Harinder Hernandez DO Active TYLENOL EXTRA STRENGTH 500 MG TABS as needed ACETAMINOPHEN 28634225065 No Longer Active Harinder Hernandez DO Active PREDNISONE 10 MG TABS 1 tab po daily PREDNISONE 09399051360 No Longer Active Harinder Hernandez DO Active PREDNISONE 20 MG TAB 2 tabs daily for 4 days, 1 tab daily for 4 days, 1/2 tab daily for 4 days PREDNISONE 29660228747 No Longer Active Harinder Hernandez DO Active AZITHROMYCIN 250 MG TABS 2 po qd x 1 day, then 1 po qd x 4 days AZITHROMYCIN 82513453619 No Longer Active Harinder Hernandez DO Active PREDNISONE 20 MG TAB 3 tabs today, then 1 tab twice daily for 3 day, then one daily for three days PREDNISONE 46895181635 No Longer Active Harinder Hernandez DO Active NIFEDIAC CC 30 MG [id number] 1 tablet daily for raynaud's syndrome NIFEDIPINE 79995292005 No Longer Active Tawnya Pardo MA Active AMBIEN 10 MG TAB 1/2 tab by mouth at bedtime as needed for sleep ZOLPIDEM TARTRATE 33698627478 Active Kortney Mccain Active CLONAZEPAM 1 MG TABS 1 tablet at bedtime for insomnia and restless legs 09/14 CLONAZEPAM 40283798772 Active Harinder Hernandez DO Active CLONAZEPAM 0.5 MG TABS 1 tab po daily CLONAZEPAM 04895861365 No Longer Active Harinder Hernandez DO Active PREDNISONE 10 MG TAB 1 tablet daily for COPD PREDNISONE 58492681483 Active Ciera Pimentel Active PROAIR HFA 108 (90 BASE) MCG/ACT AERS 2 puffs four times a day as needed 2012 ALBUTEROL SULFATE 63018469796 Active Harinder Hernandez DO Active FLOVENT HFA 110 MCG/ACT AERO 2 puffs inhaled b.i.d. FLUTICASONE PROPIONATE HFA 83276740767 Active Kortney Mccain Active ACIPHEX 20 MG TBEC 1 tab po daily RABEPRAZOLE SODIUM 57688570465 Active Kaylah Newberry Active CLONAZEPAM 0.5 MG TABS 1 tab po daily CLONAZEPAM 0.5 MG TABS 048533 CLONAZEPAM Inactive PREDNISONE 20 MG TAB 3 tabs today, then 1 tab twice daily for 3 day, then one daily for three days PREDNISONE 20 MG TAB 682144 PREDNISONE Inactive PREDNISONE 20 MG TAB 2 tabs daily for 4 days, 1 tab daily for 4 days, 1/2 tab daily for 4 days PREDNISONE 20 MG TAB 184436 PREDNISONE Inactive PREDNISONE 10 MG TABS 1 tab po daily PREDNISONE 10 MG TABS 754066 PREDNISONE Inactive TYLENOL EXTRA STRENGTH 500 MG TABS as needed TYLENOL EXTRA STRENGTH 500 MG TABS 494608 ACETAMINOPHEN Inactive MUPIROCIN 2 % OINT apply to affected area BID x 14 days MUPIROCIN 2 % OINT 574274 MUPIROCIN Inactive MONTELUKAST SODIUM 10 MG TABS 1 tab po in the evening MONTELUKAST SODIUM 10 MG TABS 20010818 MONTELUKAST SODIUM Inactive BENZONATATE 100 MG CAPS 1 cap po TID PRN BENZONATATE 100 MG CAPS 722330 BENZONATATE Inactive NEURONTIN 300 MG CAP 1 cap by mouth three times daily for restless leg 06/22 NEURONTIN 300 MG CAP 325354 GABAPENTIN Inactive LEVAQUIN 500 MG TAB 1 tablet by mouth daily LEVAQUIN 500 MG TAB 122144 LEVOFLOXACIN Inactive PREDNISONE 20 MG TAB 1 TID x 2 days, then 1 BID x 3 days, then 1 Daily x 3 days, then stop PREDNISONE 20 MG TAB 547297 PREDNISONE Inactive POTASSIUM CHLORIDE ER 10 MEQ CR-TABS take 1 tab po daily POTASSIUM CHLORIDE ER 10 MEQ CR-TABS POTASSIUM CHLORIDE Inactive PREDNISONE 20 MG TAB 1 tab twice daily for 3 day, then one daily for three days PREDNISONE 20 MG TAB 625818 PREDNISONE Inactive TESSALON PERLES 100 MG CAP 1 to 2 tablets by mouth 3 times daily as needed for cough TESSALON PERLES 100 MG CAP 099155 BENZONATATE Inactive POTASSIUM CHLORIDE CR 10 MEQ CPCR 1 capsule by mouth daily 02/14 POTASSIUM CHLORIDE CR 10 MEQ CPCR POTASSIUM CHLORIDE Inactive NITROSTAT 0.4 MG SUBL 1 tab under tongueas needed for chest pain ( may take 3 total, 5 min apart, then call 911) NITROSTAT 0.4 MG SUBL 913473 NITROGLYCERIN Inactive LOVASTATIN 40 MG TABS 1 pill by mouth nightly for cholesterol LOVASTATIN 40 MG TABS 230319 LOVASTATIN Inactive CEFDINIR 300 MG ORAL CAPS take 1 cap po bid x 10 days CEFDINIR 300 MG ORAL CAPS 253027 CEFDINIR Inactive ACEBUTOLOL HCL 200 MG CAPS 1 cap in the morning and 2 caps in the evening ACEBUTOLOL HCL 200 MG CAPS 866044 ACEBUTOLOL HCL Inactive VENTOLIN HFA 108 (90 BASE) MCG/ACT AERS 2 -4 puffs four times a day PRN 2013 VENTOLIN HFA 108 (90 BASE) MCG/ACT AERS ALBUTEROL SULFATE Inactive LEVAQUIN 500 MG ORAL TABS Take 1 tab po daily x 8 days LEVAQUIN 500 MG ORAL TABS 517616 LEVOFLOXACIN Inactive PREDNISONE 20 MG TAB 2 tabs daily for 4 days, 1 tab daily for 4 days, 1/2 tab daily for 4 days PREDNISONE 20 MG TAB 013740 PREDNISONE Inactive LOVASTATIN 40 MG ORAL TABS Take 1 tab po every hs LOVASTATIN 40 MG ORAL TABS 544131 LOVASTATIN Inactive DILAUDID 2 MG ORAL TABS Take 1/2 tab po every 4 hours as needed for pain 2014 DILAUDID 2 MG ORAL TABS 560760 HYDROMORPHONE HCL Inactive AMITRIPTYLINE HCL 25 MG ORAL TABS 1 q hs prn AMITRIPTYLINE HCL 25 MG ORAL TABS 569549 AMITRIPTYLINE HCL Inactive MECLIZINE HCL 25 MG TAB 1 tablet three times daily for 3 days, then 1/2 tab three times daily for 3 days. MECLIZINE HCL 25 MG TAB 875628 MECLIZINE HCL Inactive AMLODIPINE BESYLATE 5 MG ORAL TABS Take 1 tab po daily AMLODIPINE BESYLATE 5 MG ORAL TABS 320052 AMLODIPINE BESYLATE Inactive TOPIRAMATE 25 MG TABS 1 tab po BID TOPIRAMATE 25 MG TABS 287228 TOPIRAMATE Inactive PREDNISONE 20 MG TAB 1 tablet twice daily for 2 days, then 1 tablet once daily for 2 days PREDNISONE 20 MG TAB 016815 PREDNISONE Inactive PREDNISONE 20 MG TAB 1 tab twice daily for 3 day, then one daily for three days PREDNISONE 20 MG TAB 851229 PREDNISONE Inactive NIFEDIPINE ER 30 MG ORAL [id number] 1 daily NIFEDIPINE ER 30 MG ORAL [id number] NIFEDIPINE Inactive AMLODIPINE BESYLATE 5 MG TABS 1 tablet by mouth daily AMLODIPINE BESYLATE 5 MG TABS 079927 AMLODIPINE BESYLATE Inactive AZITHROMYCIN 250 MG TABS 2 po qd x 1 day, then 1 po qd x 4 days AZITHROMYCIN 250 MG TABS 7155746 AZITHROMYCIN Inactive AZITHROMYCIN 250 MG TABS 2 po qd x 1 day, then 1 po qd x 4 days AZITHROMYCIN 250 MG TABS 2835107 AZITHROMYCIN Inactive PREDNISONE 20 MG TAB 2 po qd x 5 days PREDNISONE 20 MG TAB 638651 PREDNISONE Inactive Vital Signs Date Name Value [...] Panel - Chemistry sodium, serum 137 mmol/L 862-317 3254/01/03 potassium, serum 3.4 mmol/L 3.5-5.2 chloride, serum [...] Magnesium - Chemistry cholesterol, serum 180 mg/dL 907-251 6879/08/08 triglyceride, serum, fasting 92 mg/dL 30-200 HDL cholesterol, serum 66 mg/dL 32-96 LDL cholesterol, serum 96 mg/dL 0-130 sodium, serum 142 mmol/L 819-038 7004/08/08 carbon dioxide, venous blood 27.4 mmol/L 21.0-32.0 [...] 10.0-20.0 Encounters Code Encounter Date Provider Facility CPT-45242 Level 4 Est. Patient 10:19:23 CDT Harinder Cr [facility] CPT-00221 Level 3 Est. Patient 09:58:58 CDT Harinder Cr [facility] CPT-06361 Level 3 Est. Patient 12:37:21 CDT Harinder Cr [facility] CPT-14949 Level 3 Est. Patient 18:37:17 CDT Harinder Cr [facility] CPT-86365 Level 4 Est. Patient 11:15:54 CDT Nettie Newberry [facility] CPT-96102 Level 3 Est. Patient 16:42:24 CDT Harinder Cr [facility] CPT-55759 Level 3 Est. Patient 15:03:36 CDT Harinder Cr [facility] CPT-86145 Level 3 Est. Patient 15:03:20 CDT Harinder Cr [facility] CPT-32362 Level 3 Est. Patient 12:14:34 CDT Harinder Hernandez [facility] CPT-95148 Level 3 Est. Patient 13:47:15 CDT Harinder Hernandez [facility] CPT-86069 Level 3 Est. Patient 14:08:24 CDT Harinder Hernandez [facility] CPT-47136 Level 3 Est. Patient 10:07:15 CDT Harinder Hernandez [facility] CPT-07268 Level 3 Est. Patient 10:06:59 CDT Harinder Hernandez [facility] CPT-26195 Level 3 Est. Patient 15:53:29 CDT Jae Morgan [facility] CPT-03151 Level 3 Est. Patient 17:19:04 CDT Harinder Hernandez [facility] CPT-28968 Level 3 Est. Patient 11:13:01 CDT Harinder Hernandez [facility] CPT-58874 Level 3 Est. Patient 09:03:58 CDT Harinder Cr [facility] CPT-51174 Level 3 Est. Patient 14:46:45 [employer]OMER SALES ADVISOR Harinder Hernandez [facility] CPT-65045 Level 3 Est. Patient 09:35:49 CUSTOMER SALES ADVISOR Harinder Hernandez [facility] CPT-74657 Level 3 Est. Patient 09:29:37 CUSTOMER SALES ADVISOR Harinder Hernandez [facility] CPT-21190 Level 3 Est. Patient 15:51:07 CDT Harinder Hernandez [facility] CPT-85016 Level 3 Est. Patient 18:13:13 CDT Harinder Shaye Hernandez [facility] CPT-90354 Level 3 Est. Patient 10:44:19 CDT Harinder Cr [facility] CPT-59492 Level 4 Est. Patient 10:07:19 CUSTOMER SALES ADVISOR Harinder Cr [facility] CPT-75272 Level 3 Est. Patient 15:59:32 CUSTOMER SALES ADVISOR Harinder Cr [facility] Procedures Code Procedure Name Date Entry Date Standard Description CPT-03006 Hip, complete, 2-3 views - XRAY USE ONLY 10:28:40 CDT CPT-14505 BMP - LAB USE ONLY 16:45:09 C[employer]OMER SALES ADVISOR CPT-23969 Port a cath flush 12:00:13 CUSTOMER SALES ADVISOR CPT-TCMM Transitional Care Mgmt-Moderate 11:20:16 CUSTOMER SALES ADVISOR CPT-15324 First Vx - Ix admin for Medicare patients 17:35:15 CDT CPT-32808 Fluzone Preservative Free Intramuscular Suspension 17:35 :15 CDT CPT-84318 Microalbumin - LAB USE ONLY 11:52:05 CDT CPT-TCMM Transitional Care Mgmt-Moderate 11:33:57 CDT CPT-16064 No Charge Offi Visit 14:11:29 CDT CPT-01141 Magnesium - LAB USE ONLY 10:45:44 CDT CPT-37418 Lipid - LAB USE ONLY 10:45:44 CDT CPT-52557 CBC - LAB USE ONLY 10:45:44 CDT CPT-35720 Venipuncture Draw Fee 10:45:43 CDT CPT-11934 Venipuncture Draw Fee 18:21:27 CDT CPT-JTINJ Asp/Joint Injection 18:38:04 CDT CPT-01554 Immunization Each Additional Inj 17:38:04 CDT CPT-88522 Immunization Single Admin 17:38:04 CDT CPT-20704 Prevnar 13 17:38:04 CDT CPT-80614 Fluzone Quadrivalent preservative free (>=3yrs.) 17:38: 04 CDT CPT-82529 No Charge Offi Visit 11:14:03 CDT CPT-91214 Chest 2V Frontal and Lat 14:00:18 CDT CPT-OV Office Visit 16:10:28 CDT CPT-JTINJ Asp/Joint Injection 09:03:57 CDT CPT-Cryo Cryotherapy 09:35:49 C[employer]OMER SALES ADVISOR CPT-JTINJ Asp/Joint Injection 09:34:45 C[employer]OMER SALES ADVISOR CPT-J2930 Solu Medrol 125 mg (Methyl Prednisolone Sodium Succinate) 20:37:27 CDT CPT-36103 Abx/Therapy Injection 20:37:27 CDT CPT-20255 Port a cath flush 08:15:51 CDT CPT-28433 Port a cath flush 09:54:16 CDT CPT-02668 Port a cath flush 09:38:02 CDT CPT-76191 Port a cath flush 11:00:27 CUSTOMER SALES ADVISOR
--- OUTSIDE RECORDS SUMMARY | 2017-12-29 05:20 | XMS REPORT | Clinical Summary ---
Author Author Admin, QIE Organization [facility] Address Unknown Phone Unavailable Allergies, Adverse Reactions, [...] 4hrs PRN Wheezing Dx: J44.1 ALBUTEROL SULFATE 41015137194 Active Kortney Mccain Active AMLODIPINE BESYLATE 5 MG TABS 1 tablet by mouth daily AMLODIPINE BESYLATE 99931258854 Active Harinder Hernandez DO Active NIFEDIPINE ER 30 MG ORAL [id number] 1 daily NIFEDIPINE 58819940974 No Longer Active Harinder Hernandez DO Active POTASSIUM CHLORIDE 20 MEQ ORAL PACK Take 1 tablet by mouth daily POTASSIUM CHLORIDE 35659246380 Active Ciera Pimentel Active FLOVENT HFA 110 MCG/ACT AERO 2 puffs inhaled b.i.d. FLUTICASONE PROPIONATE HFA 14821384687 Active Harinder Hernandez DO Active POTASSIUM CHLORIDE CR 10 MEQ CPCR 1 capsule by mouth daily POTASSIUM CHLORIDE 05737150868 Active Harinder Hernandez DO Active EPIPEN 2-BRUNA 0.3 MG/0.3ML INJ SOAJ 1 INJ NEEDED EPINEPHRINE 64378342794 Active Harinder Hernandez DO Active PREDNISONE 20 MG TAB 1 tab twice daily for 3 day, then one daily for three days PREDNISONE 17137697205 No Longer Active Harinder Hernandez DO Active PREDNISONE 20 MG TAB 1 tablet twice daily for 2 days, then 1 tablet once daily for 2 days PREDNISONE 67732173470 No Longer Active Harinder Hernandez DO Active ASMANEX 120 METERED DOSES 220 MCG/INH INH AEPB 2 puffs orally twice daily MOMETASONE FUROATE 02982648539 Active Jeri Sosa RPT,RMA Active TOPIRAMATE 25 MG TABS 1 tab po BID TOPIRAMATE 98760601818 No Longer Active Nettie Newberry APRN Active AMLODIPINE BESYLATE 5 MG ORAL TABS Take 1 tab po daily AMLODIPINE BESYLATE 27910277121 No Longer Active Nettie Newberry APRN Active MECLIZINE HCL 25 MG TAB 1 tablet three times daily for 3 days, then 1/2 tab three times daily for 3 days. MECLIZINE HCL 13685262822 No Longer Active Nettie Newberry SOCIAL WORKER AIDE Active AMITRIPTYLINE HCL 25 MG ORAL TABS 1 q hs prn AMITRIPTYLINE HCL 97346895929 No Longer Active Nettie Newberry MAHENDRA Active DILAUDID 2 MG ORAL TABS Take 1/2 tab po every 4 hours as needed for pain 2014 HYDROMORPHONE HCL 72274426115 No Longer Active Nettie Newberry MAHENDRA Active CLOPIDOGREL BISULFATE 75 MG ORAL TABS 1 tab by mouth once daily CLOPIDOGREL BISULFATE 02672433117 Active Harinder Hernandez DO Active ATORVASTATIN CALCIUM 10 MG ORAL TABS 1 at bedtime ATORVASTATIN CALCIUM 72101136523 Active Tawnya Pardo MA Active LOVASTATIN 40 MG ORAL TABS Take 1 tab po every hs LOVASTATIN 12993183881 No Longer Active Harinder Hernandez DO Active PREDNISONE 20 MG TAB 2 tabs daily for 4 days, 1 tab daily for 4 days, 1/2 tab daily for 4 days PREDNISONE 44952771474 No Longer Active Harinder Hernandez DO Active LEVAQUIN 500 MG ORAL TABS Take 1 tab po daily x 8 days LEVOFLOXACIN 21348319064 No Longer Active Harinder Hernandez DO Active VENTOLIN HFA 108 (90 BASE) MCG/ACT AERS 2 -4 puffs four times a day PRN 2013 ALBUTEROL SULFATE 09635500206 No Longer Active Jeri Sosa RPT,RMA Active ACEBUTOLOL HCL 200 MG CAPS 1 cap in the morning and 2 caps in the evening ACEBUTOLOL HCL 80823765606 No Longer Active Harinder Hernandez DO Active CEFDINIR 300 MG ORAL CAPS take 1 cap po bid x 10 days CEFDINIR 04431778820 No Longer Active Harinder Hernandez DO Active LOVASTATIN 40 MG TABS 1 pill by mouth nightly for cholesterol LOVASTATIN 61275743724 No Longer Active Nettie Newberry APRN Active NITROSTAT 0.4 MG SUBL 1 tab under tongueas needed for chest pain ( may take 3 total, 5 min apart, then call 911) NITROGLYCERIN 40962391505 No Longer Active Nettie Newberry APRN Active POTASSIUM CHLORIDE CR 10 MEQ CPCR 1 capsule by mouth daily 02/14 POTASSIUM CHLORIDE 79650368225 No Longer Active Nettie Newberry APRN Active TESSALON PERLES 100 MG CAP 1 to 2 tablets by mouth 3 times daily as needed for cough BENZONATATE 30339453246 No Longer Active Nettie Newberry APRN Active THEOPHYLLINE ER 200 MG ORAL [id number] Take 1 tab every 12 hours THEOPHYLLINE 53342807594 Active Tawnya Pardo MA Active PREDNISONE 20 MG TAB 2 po qd x 5 days PREDNISONE 33994128292 No Longer Active Jae Morgan MD Active AZITHROMYCIN 250 MG TABS 2 po qd x 1 day, then 1 po qd x 4 days AZITHROMYCIN 34821353341 No Longer Active Jae Morgan MD Active PREDNISONE 20 MG TAB 1 tab twice daily for 3 day, then one daily for three days PREDNISONE 69351441752 No Longer Active Jae Morgan MD Active SINGULAIR 10 MG TABS 1 pill by mouth every evening for breathing. MONTELUKAST SODIUM 52860058713 Active Tawnya Pardo MA Active TYLENOL 325 MG TAB 3 by mouth q4h as needed ACETAMINOPHEN 13673890084 Active Harinder Hernandez DO Active POTASSIUM CHLORIDE ER 10 MEQ CR-TABS take 1 tab po daily POTASSIUM CHLORIDE 49072683158 No Longer Active Harinder Hernandez DO Active PREDNISONE 20 MG TAB 1 TID x 2 days, then 1 BID x 3 days, then 1 Daily x 3 days, then stop PREDNISONE 63239020951 No Longer Active Jillina Frazellor BRICEÑON Active LEVAQUIN 500 MG TAB 1 tablet by mouth daily LEVOFLOXACIN 30742631149 No Longer Active Jillina Frazell SOCIAL WORKER AIDE Active NEURONTIN 300 MG CAP 1 cap by mouth three times daily for restless leg 06/22 GABAPENTIN 11903955336 No Longer Active Harinder Hernandez DO Active BENZONATATE 100 MG CAPS 1 cap po TID PRN BENZONATATE 37733761285 No Longer Active Harinder Hernandez DO Active MONTELUKAST SODIUM 10 MG TABS 1 tab po in the evening MONTELUKAST SODIUM 85838896565 No Longer Active Harinder Hernandez DO Active MUPIROCIN 2 % OINT apply to affected area BID x 14 days MUPIROCIN 36475464387 No Longer Active Harinder Hernandez DO Active TYLENOL EXTRA STRENGTH 500 MG TABS as needed ACETAMINOPHEN 99031898609 No Longer Active Harinder Hernandez DO Active PREDNISONE 10 MG TABS 1 tab po daily PREDNISONE 71625700991 No Longer Active Harinder Hernandez DO Active PREDNISONE 20 MG TAB 2 tabs daily for 4 days, 1 tab daily for 4 days, 1/2 tab daily for 4 days PREDNISONE 87070063223 No Longer Active Harinder Hernandez DO Active AZITHROMYCIN 250 MG TABS 2 po qd x 1 day, then 1 po qd x 4 days AZITHROMYCIN 62550220383 No Longer Active Harinder Hernandez DO Active PREDNISONE 20 MG TAB 3 tabs today, then 1 tab twice daily for 3 day, then one daily for three days PREDNISONE 97480300542 No Longer Active Harinder Hernandez DO Active NIFEDIAC CC 30 MG [id number] 1 tablet daily for raynaud's syndrome NIFEDIPINE 43377130130 No Longer Active Tawnya Pardo MA Active AMBIEN 10 MG TAB 1/2 tab by mouth at bedtime as needed for sleep ZOLPIDEM TARTRATE 03453492854 Active Kortney Mccain Active CLONAZEPAM 1 MG TABS 1 tablet at bedtime for insomnia and restless legs 09/14 CLONAZEPAM 98745195634 Active Harinder Hernandez DO Active CLONAZEPAM 0.5 MG TABS 1 tab po daily CLONAZEPAM 21442676621 No Longer Active Harinder Hernandez DO Active PREDNISONE 10 MG TAB 1 tablet daily for COPD PREDNISONE 32709748152 Active Tawnya Pardo MA Active PROAIR HFA 108 (90 BASE) MCG/ACT AERS 2 puffs four times a day as needed 2012 ALBUTEROL SULFATE 52190057694 Active Harinder Hernandez DO Active FLOVENT HFA 110 MCG/ACT AERO 2 puffs inhaled b.i.d. FLUTICASONE PROPIONATE HFA 72343186074 Active Kortney Mccain Active ACIPHEX 20 MG TBEC 1 tab po daily RABEPRAZOLE SODIUM 10627030624 Active Kaylah Newberry Active CLONAZEPAM 0.5 MG TABS 1 tab po daily CLONAZEPAM 0.5 MG TABS 534779 CLONAZEPAM Inactive PREDNISONE 20 MG TAB 3 tabs today, then 1 tab twice daily for 3 day, then one daily for three days PREDNISONE 20 MG TAB 649031 PREDNISONE Inactive PREDNISONE 20 MG TAB 2 tabs daily for 4 days, 1 tab daily for 4 days, 1/2 tab daily for 4 days PREDNISONE 20 MG TAB 207202 PREDNISONE Inactive PREDNISONE 10 MG TABS 1 tab po daily PREDNISONE 10 MG TABS 546523 PREDNISONE Inactive TYLENOL EXTRA STRENGTH 500 MG TABS as needed TYLENOL EXTRA STRENGTH 500 MG TABS 721684 ACETAMINOPHEN Inactive MUPIROCIN 2 % OINT apply to affected area BID x 14 days MUPIROCIN 2 % OINT 903366 MUPIROCIN Inactive MONTELUKAST SODIUM 10 MG TABS 1 tab po in the evening MONTELUKAST SODIUM 10 MG TABS 20010818 MONTELUKAST SODIUM Inactive BENZONATATE 100 MG CAPS 1 cap po TID PRN BENZONATATE 100 MG CAPS 19730321 BENZONATATE Inactive NEURONTIN 300 MG CAP 1 cap by mouth three times daily for restless leg 06/22 NEURONTIN 300 MG CAP 901034 GABAPENTIN Inactive LEVAQUIN 500 MG TAB 1 tablet by mouth daily LEVAQUIN 500 MG TAB 827475 LEVOFLOXACIN Inactive PREDNISONE 20 MG TAB 1 TID x 2 days, then 1 BID x 3 days, then 1 Daily x 3 days, then stop PREDNISONE 20 MG TAB 872984 PREDNISONE Inactive POTASSIUM CHLORIDE ER 10 MEQ CR-TABS take 1 tab po daily POTASSIUM CHLORIDE ER 10 MEQ CR-TABS POTASSIUM CHLORIDE Inactive PREDNISONE 20 MG TAB 1 tab twice daily for 3 day, then one daily for three days PREDNISONE 20 MG TAB 170225 PREDNISONE Inactive TESSALON PERLES 100 MG CAP [...] then call 911) NITROSTAT 0.4 MG SUBL 792956 NITROGLYCERIN Inactive LOVASTATIN 40 MG TABS 1 pill by mouth nightly for cholesterol LOVASTATIN 40 MG TABS 200232 LOVASTATIN Inactive CEFDINIR 300 MG ORAL CAPS take 1 cap po bid x 10 days CEFDINIR 300 MG ORAL CAPS 20021018 CEFDINIR Inactive ACEBUTOLOL HCL 200 MG CAPS 1 cap in the morning and 2 caps in the evening ACEBUTOLOL HCL 200 MG CAPS 676721 ACEBUTOLOL HCL Inactive VENTOLIN HFA 108 (90 BASE) MCG/ACT AERS 2 -4 puffs four times a day PRN 2013 VENTOLIN HFA 108 (90 BASE) MCG/ACT AERS ALBUTEROL SULFATE Inactive LEVAQUIN 500 MG ORAL TABS Take 1 tab po daily x 8 days LEVAQUIN 500 MG ORAL TABS 958951 LEVOFLOXACIN Inactive PREDNISONE 20 MG TAB 2 tabs daily for 4 days, 1 tab daily for 4 days, 1/2 tab daily for 4 days PREDNISONE 20 MG TAB 110493 PREDNISONE Inactive LOVASTATIN 40 MG ORAL TABS Take 1 tab po every hs LOVASTATIN 40 MG ORAL TABS 475431 LOVASTATIN Inactive DILAUDID 2 MG ORAL TABS Take 1/2 tab po every 4 hours as needed for pain 2014 DILAUDID 2 MG ORAL TABS 818787 HYDROMORPHONE HCL Inactive AMITRIPTYLINE HCL 25 MG ORAL TABS 1 q hs prn AMITRIPTYLINE HCL 25 MG ORAL TABS 574679 AMITRIPTYLINE HCL Inactive MECLIZINE HCL 25 MG TAB 1 tablet three times daily for 3 days, then 1/2 tab three times daily for 3 days. MECLIZINE HCL 25 MG TAB 315832 MECLIZINE HCL Inactive AMLODIPINE BESYLATE 5 MG ORAL TABS Take 1 tab po daily AMLODIPINE BESYLATE 5 MG ORAL TABS 895546 AMLODIPINE BESYLATE Inactive TOPIRAMATE 25 MG TABS 1 tab po BID TOPIRAMATE 25 MG TABS 636772 TOPIRAMATE Inactive PREDNISONE 20 MG TAB 1 tablet twice daily for 2 days, then 1 tablet once daily for 2 days PREDNISONE 20 MG TAB 705890 PREDNISONE Inactive PREDNISONE 20 MG TAB 1 tab twice daily for 3 day, then one daily for three days PREDNISONE 20 MG TAB 196521 PREDNISONE Inactive NIFEDIPINE ER 30 MG ORAL [id number] 1 daily NIFEDIPINE ER 30 MG ORAL [id number] NIFEDIPINE Inactive AZITHROMYCIN 250 MG TABS 2 po qd x 1 day, then 1 po qd x 4 days AZITHROMYCIN 250 MG TABS 0214042 AZITHROMYCIN Inactive AZITHROMYCIN 250 MG TABS 2 po qd x 1 day, then 1 po qd x 4 days AZITHROMYCIN 250 MG TABS 2703897 AZITHROMYCIN Inactive PREDNISONE 20 MG TAB 2 po qd x 5 days PREDNISONE 20 MG TAB 309897 PREDNISONE Inactive Vital Signs Date Name Value [...] Panel - Chemistry sodium, serum 137 mmol/L 701-091 1264/01/03 potassium, serum 3.4 mmol/L 3.5-5.2 chloride, serum [...] Magnesium - Chemistry cholesterol, serum 180 mg/dL 241-733 1110/08/08 triglyceride, serum, fasting 92 mg/dL 30-200 HDL cholesterol, serum 66 mg/dL 32-96 LDL cholesterol, serum 96 mg/dL 0-130 sodium, serum 142 mmol/L 050-333 2622/08/08 carbon dioxide, venous blood 27.4 mmol/L 21.0-32.0 [...] 10.0-20.0 Encounters Code Encounter Date Provider Facility CPT-56392 Level 3 Est. Patient 09:58:58 CDT Harinder Shaye [facility] CPT-73874 Level 3 Est. Patient 12:37:21 CDT Harinder Shaye [facility] CPT-67542 Level 3 Est. Patient 18:37:17 CDT Harinder Shaye [facility] CPT-08367 Level 4 Est. Patient 11:15:54 CDT Nettie [facility] CPT-98726 Level 3 Est. Patient 16:42:24 CDT Harinder Shaye [facility] CPT-35808 Level 3 Est. Patient 15:03:36 CDT Harinder Shaye [facility] CPT-02050 Level 3 Est. Patient 15:03:20 CDT Harinder Cr [facility] CPT-79362 Level 3 Est. Patient 12:14:34 CDT Harinder Cr [facility] CPT-61277 Level 3 Est. Patient 13:47:15 CDT Harinder Cr [facility] CPT-49900 Level 3 Est. Patient 14:08:24 CDT Harinder Hernandez [facility] CPT-60379 Level 3 Est. Patient 10:07:15 CDT Harinder Hernandez [facility] CPT-98633 Level 3 Est. Patient 10:06:59 CDT Harinder Hernandez [facility] CPT-06839 Level 3 Est. Patient 15:53:29 CDT Jae Morgan MD [facility] CPT-87908 Level 3 Est. Patient 17:19:04 CDT Harinder Hernandez [facility] CPT-12274 Level 3 Est. Patient 11:13:01 CDT Harinder Hernandez [facility] CPT-08902 Level 3 Est. Patient 09:03:58 CDT Harinder Hernandez [facility] CPT-03778 Level 3 Est. Patient 14:46:45 RAYON CONER Harinder Hernandez [facility] CPT-53907 Level 3 Est. Patient 09:35:49 RAYON CONER Harinder Hernandez [facility] CPT-40561 Level 3 Est. Patient 09:29:37 RAYON CONER Harinder Hernandez [facility] CPT-98868 Level 3 Est. Patient 15:51:07 CDT Harinder Hernandez [facility] CPT-11943 Level 3 Est. Patient 18:13:13 CDT Harinder Hernandez [facility] CPT-32903 Level 3 Est. Patient 10:44:19 CDT Harinder Hernandez [facility] CPT-10050 Level 4 Est. Patient 10:07:19 RAYON CONER Harinder Hernandez [facility] CPT-29185 Level 3 Est. Patient 15:59:32 RAYON CONER Harinder Cr [facility] Procedures Code Procedure Name Date Entry Date Standard Description CPT-49178 BMP - LAB USE ONLY 16:45:09 RAYON CONER CPT-90717 Port a cath flush 12:00:13 RAYON CONER CPT-TCMM Transitional Care Mgmt-Moderate 11:20:16 RAYON CONER CPT-21421 First Vx - Ix admin for Medicare patients 17:35:15 CDT CPT-53224 Fluzone Preservative Free Intramuscular Suspension 17:35 :15 CDT CPT-87919 Microalbumin - LAB USE ONLY 11:52:05 CDT CPT-TCMM Transitional Care Mgmt-Moderate 11:33:57 CDT CPT-16628 No Charge Offi Visit 14:11:29 CDT CPT-49199 Magnesium - LAB USE ONLY 10:45:44 CDT CPT-43735 Lipid - LAB USE ONLY 10:45:44 CDT CPT-42277 CBC - LAB USE ONLY 10:45:44 CDT CPT-04126 Venipuncture Draw Fee 10:45:43 CDT CPT-77624 Venipuncture Draw Fee 18:21:27 CDT CPT-JTINJ Asp/Joint Injection 18:38:04 CDT CPT-84272 Immunization Each Additional Inj 17:38:04 CDT CPT-54424 Immunization Single Admin 17:38:04 CDT CPT-53135 Prevnar 13 17:38:04 CDT CPT-63876 Fluzone Quadrivalent preservative free (>=3yrs.) 17:38: 04 CDT CPT-48686 No Charge Offi Visit 11:14:03 CDT CPT-76244 Chest 2V Frontal and Lat 14:00:18 CDT CPT-OV Office Visit 16:10:28 CDT CPT-JTINJ Asp/Joint Injection 09:03:57 CDT CPT-Cryo Cryotherapy 09:35:49 RAYON CONER CPT-JTINJ Asp/Joint Injection 09:34:45 RAYON CONER CPT-J2930 Solu Medrol 125 mg (Methyl Prednisolone Sodium Succinate) 20:37:27 CDT CPT-39187 Abx/Therapy Injection 20:37:27 CDT CPT-29514 Port a cath flush 08:15:51 CDT CPT-53659 Port a cath flush 09:54:16 CDT CPT-78119 Port a cath flush 09:38:02 CDT CPT-35301 Port a cath flush 11:00:27 RAYON CONER
--- OUTSIDE RECORDS SUMMARY | 2017-12-29 05:22 | XMS REPORT | Clinical Summary ---
Author Author Admin, QIE Organization [facility] Address Unknown Phone Unavailable Allergies, Adverse Reactions, [...] 1 tab po q day POTASSIUM CHLORIDE 93755099834 Active Harinder Hernandez DO Active POTASSIUM CHLORIDE CR 10 MEQ CPCR 1 capsule BID POTASSIUM CHLORIDE 08193315428 No Longer Active Kortney Mccain Active LASIX 20 MG TAB 1 tablet by mouth every morning FUROSEMIDE 70463084625 No Longer Active Kortney Mccain Active SPIRONOLACTONE 25 MG TAB 1 tablet by mouth daily SPIRONOLACTONE 02854208042 Active Ciera Pimentel Active FLUOXETINE HCL 10 MG ORAL CAPS 1 po qd for depression/anxiety FLUOXETINE HCL 72168732260 Prince Hernandez DO Active VOLTAREN 1 % GEL apply q 6-8 hour to left arm as needed for pain DICLOFENAC SODIUM 47884530711 Prince Hernandez DO Active ALBUTEROL SULFATE 0.083 % NEBU SOLN 1 vial neb q 4hrs for severe asthma. 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 FLUTICASONE PROPIONATE HFA 41552037248 Active Harinder Hernandez DO Active EPIPEN 2-BRUNA 0.3 MG/0.3ML INJ SOAJ 1 INJ NEEDED EPINEPHRINE 79421537870 Active Harinder Hernandez DO Active PREDNISONE 20 MG TAB 1 tab twice daily for 3 day, then one daily for three days PREDNISONE 04357127403 No Longer Active Harinder Hernandez DO Active PREDNISONE 20 MG TAB 1 tablet twice daily for 2 days, then 1 tablet once daily for 2 days PREDNISONE 94966716429 No Longer Active Harinder Hernandez DO Active ASMANEX 120 METERED DOSES 220 MCG/INH INH AEPB 2 puffs orally twice daily MOMETASONE FUROATE 12415389551 Active Jeri Sosa LPN Active TOPIRAMATE 25 MG TABS 1 tab po BID TOPIRAMATE 17842171107 No Longer Active Nettie Newberry APRN Active AMLODIPINE BESYLATE 5 MG ORAL TABS Take 1 tab po daily AMLODIPINE BESYLATE 49303641791 No Longer Active Nettie Newberry APRN Active MECLIZINE HCL 25 MG TAB 1 tablet three times daily for 3 days, then 1/2 tab three times daily for 3 days. MECLIZINE HCL 48365596809 No Longer Active Nettie Newberry APRN Active AMITRIPTYLINE HCL 25 MG ORAL TABS 1 q hs prn AMITRIPTYLINE HCL 04570429059 No Longer Active Nettie Newberry APRN Active DILAUDID 2 MG ORAL TABS Take 1/2 tab po every 4 hours as needed for pain 2014 HYDROMORPHONE HCL 91801619245 No Longer Active Nettie Newberry APRN Active CLOPIDOGREL BISULFATE 75 MG ORAL TABS 1 tab by mouth once daily CLOPIDOGREL BISULFATE 88212588442 Active Harinder Hernandez DO Active ATORVASTATIN CALCIUM 10 MG ORAL TABS 1 at bedtime ATORVASTATIN CALCIUM 78057402017 Active Harinder Hernandez DO Active LOVASTATIN 40 MG ORAL TABS Take 1 tab po every hs LOVASTATIN 82673894493 No Longer Active Harinder Hernandez DO Active PREDNISONE 20 MG TAB 2 tabs daily for 4 days, 1 tab daily for 4 days, 1/2 tab daily for 4 days PREDNISONE 57181496449 No Longer Active Harinder Hernandez DO Active LEVAQUIN 500 MG ORAL TABS Take 1 tab po daily x 8 days LEVOFLOXACIN 74067847554 No Longer Active Harinder Hernandez DO Active VENTOLIN HFA 108 (90 BASE) MCG/ACT AERS 2 -4 puffs four times a day PRN 2013 ALBUTEROL SULFATE 95006325656 No Longer Active Jeri Sosa LPN Active ACEBUTOLOL HCL 200 MG CAPS 1 cap in the morning and 2 caps in the evening ACEBUTOLOL HCL 95006652229 No Longer Active Harinder Hernandez DO Active CEFDINIR 300 MG ORAL CAPS take 1 cap po bid x 10 days CEFDINIR 65565431476 No Longer Active Harinder Hernandez DO Active LOVASTATIN 40 MG TABS 1 pill by mouth nightly for cholesterol LOVASTATIN 35394256452 No Longer Active Nettie Newberry MAHENDRA Active NITROSTAT 0.4 MG SUBL 1 tab under tongueas needed for chest pain ( may take 3 total, 5 min apart, then call 911) NITROGLYCERIN 03544070166 No Longer Active Nettie Newberry MAHENDRA Active POTASSIUM CHLORIDE CR 10 MEQ CPCR 1 capsule by mouth daily 02/14 POTASSIUM CHLORIDE 29811023026 No Longer Active Nettie Rohith MAHENDRA Active TESSALON PERLES 100 MG CAP 1 to 2 tablets by mouth 3 times daily as needed for cough BENZONATATE 94525267635 No Longer Active Nettie Newberry MAHENDRA Active THEOPHYLLINE ER 200 MG ORAL [id number] Take 1 tab every 12 hours THEOPHYLLINE 02429686921 Active Harinder Hernandez DO Active PREDNISONE 20 MG TAB 2 po qd x 5 days PREDNISONE 79262337111 No Longer Active Jae Morgan MD Active AZITHROMYCIN 250 MG TABS 2 po qd x 1 day, then 1 po qd x 4 days AZITHROMYCIN 53080358240 No Longer Active Jae Morgan MD Active PREDNISONE 20 MG TAB 1 tab twice daily for 3 day, then one daily for three days PREDNISONE 71995872828 No Longer Active Jae Morgan MD Active SINGULAIR 10 MG TABS 1 pill by mouth every evening for breathing. MONTELUKAST SODIUM 27307846899 Active Tawnya Pardo MA Active TYLENOL 325 MG TAB 3 by mouth q4h as needed ACETAMINOPHEN 26304401721 Active Harinder Hernandez DO Active POTASSIUM CHLORIDE ER 10 MEQ CR-TABS take 1 tab po daily POTASSIUM CHLORIDE 38709888277 No Longer Active Harinder Hernandez DO Active PREDNISONE 20 MG TAB 1 TID x 2 days, then 1 BID x 3 days, then 1 Daily x 3 days, then stop PREDNISONE 62562017572 No Longer Active John Montemayor APRN Active LEVAQUIN 500 MG TAB 1 tablet by mouth daily LEVOFLOXACIN 95827848794 No Longer Active John Cuelloshai [employer] WORK[employer] Active NEURONTIN 300 MG CAP 1 cap by mouth three times daily for restless leg 06/22 GABAPENTIN 06790705609 No Longer Active Harinder Hernandez DO Active BENZONATATE 100 MG CAPS 1 cap po TID PRN BENZONATATE 39720916044 No Longer Active Harinder Hernandez DO Active MONTELUKAST SODIUM 10 MG TABS 1 tab po in the evening MONTELUKAST SODIUM 42973287579 No Longer Active Harinder Hernandez DO Active MUPIROCIN 2 % OINT apply to affected area BID x 14 days MUPIROCIN 33099275207 No Longer Active Harinder Hernandez DO Active TYLENOL EXTRA STRENGTH 500 MG TABS as needed ACETAMINOPHEN 75040641355 No Longer Active Harinder Hernandez DO Active PREDNISONE 10 MG TABS 1 tab po daily PREDNISONE 74559233485 No Longer Active Harinder Hernandez DO Active PREDNISONE 20 MG TAB 2 tabs daily for 4 days, 1 tab daily for 4 days, 1/2 tab daily for 4 days PREDNISONE 84253050654 No Longer Active Harinder Hernandez DO Active AZITHROMYCIN 250 MG TABS 2 po qd x 1 day, then 1 po qd x 4 days AZITHROMYCIN 36729923113 No Longer Active Harinder Hernandez DO Active PREDNISONE 20 MG TAB 3 tabs today, then 1 tab twice daily for 3 day, then one daily for three days PREDNISONE 81445232263 No Longer Active Harinder Hernandez DO Active NIFEDIAC CC 30 MG [id number] 1 tablet daily for raynaud's syndrome NIFEDIPINE 66858778076 No Longer Active Tawnya Pardo MA Active AMBIEN 10 MG TAB 1/2 tab by mouth at bedtime as needed for sleep ZOLPIDEM TARTRATE 62131626580 Active Harinder Hernandez DO Active CLONAZEPAM 1 MG TABS 1 tablet at bedtime for insomnia and restless legs 09/14 CLONAZEPAM 89239379662 Active Harinder W David DO Active CLONAZEPAM 0.5 MG TABS 1 tab po daily CLONAZEPAM 01147913851 No Longer Active Harinder Hernandez DO Active PREDNISONE 10 MG TAB 1 tablet daily for COPD PREDNISONE 65989923357 Active Harinder Hernandez DO Active PROAIR HFA 108 (90 BASE) MCG/ACT AERS 2 puffs four times a day as needed 2012 ALBUTEROL SULFATE 39463810971 Active Harinder Hernandez DO Active FLOVENT HFA 110 MCG/ACT AERO 2 puffs inhaled b.i.d. FLUTICASONE PROPIONATE HFA 63092244294 Active Kortney Mccain Active ACIPHEX 20 MG TBEC 1 tab po daily RABEPRAZOLE SODIUM 38919669307 Active Kaylah Newberry Active CLONAZEPAM 0.5 MG TABS 1 tab po daily CLONAZEPAM 0.5 MG TABS 273611 CLONAZEPAM Inactive PREDNISONE 20 MG TAB 3 tabs today, then 1 tab twice daily for 3 day, then one daily for three days PREDNISONE 20 MG TAB 098898 PREDNISONE Inactive PREDNISONE 20 MG TAB 2 tabs daily for 4 days, 1 tab daily for 4 days, 1/2 tab daily for 4 days PREDNISONE 20 MG TAB 289174 PREDNISONE Inactive PREDNISONE 10 MG TABS 1 tab po daily PREDNISONE 10 MG TABS 139265 PREDNISONE Inactive TYLENOL EXTRA STRENGTH 500 MG TABS as needed TYLENOL EXTRA STRENGTH 500 MG TABS 135403 ACETAMINOPHEN Inactive MUPIROCIN 2 % OINT apply to affected area BID x 14 days MUPIROCIN 2 % OINT 372627 MUPIROCIN Inactive MONTELUKAST SODIUM 10 MG TABS 1 tab po in the evening MONTELUKAST SODIUM 10 MG TABS 20010818 MONTELUKAST SODIUM Inactive BENZONATATE 100 MG CAPS 1 cap po TID PRN BENZONATATE 100 MG CAPS 646363 BENZONATATE Inactive NEURONTIN 300 MG CAP 1 cap by mouth three times daily for restless leg 06/22 NEURONTIN 300 MG CAP 708771 GABAPENTIN Inactive LEVAQUIN 500 MG TAB 1 tablet by mouth daily LEVAQUIN 500 MG TAB 122041 LEVOFLOXACIN Inactive PREDNISONE 20 MG TAB 1 TID x 2 days, then 1 BID x 3 days, then 1 Daily x 3 days, then stop PREDNISONE 20 MG TAB 247097 PREDNISONE Inactive POTASSIUM CHLORIDE ER 10 MEQ CR-TABS take 1 tab po daily POTASSIUM CHLORIDE ER 10 MEQ CR-TABS POTASSIUM CHLORIDE Inactive PREDNISONE 20 MG TAB 1 tab twice daily for 3 day, then one daily for three days PREDNISONE 20 MG TAB 255810 PREDNISONE Inactive TESSALON PERLES 100 MG CAP 1 to 2 tablets by mouth 3 times daily as needed for cough TESSALON PERLES 100 MG CAP 763812 BENZONATATE Inactive POTASSIUM CHLORIDE CR 10 MEQ CPCR 1 capsule by mouth daily 02/14 POTASSIUM CHLORIDE CR 10 MEQ CPCR POTASSIUM CHLORIDE Inactive NITROSTAT 0.4 MG SUBL 1 tab under tongueas needed for chest pain ( may take 3 total, 5 min apart, then call 911) NITROSTAT 0.4 MG SUBL 912671 NITROGLYCERIN Inactive LOVASTATIN 40 MG TABS 1 pill by mouth nightly for cholesterol LOVASTATIN 40 MG TABS 716652 LOVASTATIN Inactive CEFDINIR 300 MG ORAL CAPS take 1 cap po bid x 10 days CEFDINIR 300 MG ORAL CAPS 701644 CEFDINIR Inactive ACEBUTOLOL HCL 200 MG CAPS 1 cap in the morning and 2 caps in the evening ACEBUTOLOL HCL 200 MG CAPS 900466 ACEBUTOLOL HCL Inactive VENTOLIN HFA 108 (90 BASE) MCG/ACT AERS 2 -4 puffs four times a day PRN 2013 VENTOLIN HFA 108 (90 BASE) MCG/ACT AERS ALBUTEROL SULFATE Inactive LEVAQUIN 500 MG ORAL TABS Take 1 tab po daily x 8 days LEVAQUIN 500 MG ORAL TABS 159412 LEVOFLOXACIN Inactive PREDNISONE 20 MG TAB 2 tabs daily for 4 days, 1 tab daily for 4 days, 1/2 tab daily for 4 days PREDNISONE 20 MG TAB 433135 PREDNISONE Inactive LOVASTATIN 40 MG ORAL TABS Take 1 tab po every hs LOVASTATIN 40 MG ORAL TABS 105715 LOVASTATIN Inactive DILAUDID 2 MG ORAL TABS Take 1/2 tab po every 4 hours as needed for pain 2014 DILAUDID 2 MG ORAL TABS 989832 HYDROMORPHONE HCL Inactive AMITRIPTYLINE HCL 25 MG ORAL TABS 1 q hs prn AMITRIPTYLINE HCL 25 MG ORAL TABS 596548 AMITRIPTYLINE HCL Inactive MECLIZINE HCL 25 MG TAB 1 tablet three times daily for 3 days, then 1/2 tab three times daily for 3 days. MECLIZINE HCL 25 MG TAB 853602 MECLIZINE HCL Inactive AMLODIPINE BESYLATE 5 MG ORAL TABS Take 1 tab po daily AMLODIPINE BESYLATE 5 MG ORAL TABS 309548 AMLODIPINE BESYLATE Inactive TOPIRAMATE 25 MG TABS 1 tab po BID TOPIRAMATE 25 MG TABS 359218 TOPIRAMATE Inactive PREDNISONE 20 MG TAB 1 tablet twice daily for 2 days, then 1 tablet once daily for 2 days PREDNISONE 20 MG TAB 588219 PREDNISONE Inactive PREDNISONE 20 MG TAB 1 tab twice daily for 3 day, then one daily for three days PREDNISONE 20 MG TAB 873024 PREDNISONE Inactive NIFEDIPINE ER 30 MG ORAL [id number] 1 daily NIFEDIPINE ER 30 MG ORAL [id number] NIFEDIPINE Inactive AMLODIPINE BESYLATE 5 MG TABS 1 tablet by mouth daily AMLODIPINE BESYLATE 5 MG TABS 794766 AMLODIPINE BESYLATE Inactive LASIX 20 MG TAB 1 tablet by mouth every morning LASIX 20 MG TAB 846983 FUROSEMIDE Inactive POTASSIUM CHLORIDE CR 10 MEQ CPCR 1 capsule BID POTASSIUM CHLORIDE CR 10 MEQ CPCR POTASSIUM CHLORIDE Inactive AZITHROMYCIN 250 MG TABS 2 po qd x 1 day, then 1 po qd x 4 days AZITHROMYCIN 250 MG TABS 1085117 AZITHROMYCIN Inactive AZITHROMYCIN 250 MG TABS 2 po qd x 1 day, then 1 po qd x 4 days AZITHROMYCIN 250 MG TABS 0453170 AZITHROMYCIN Inactive PREDNISONE 20 MG TAB 2 po qd x 5 days PREDNISONE 20 MG TAB 148192 PREDNISONE Inactive Vital Signs Date Name Value [...] Panel - Chemistry sodium, serum 137 mmol/L 861-454 2027/01/03 potassium, serum 3.4 mmol/L 3.5-5.2 chloride, serum 102 mmol/L 98-107 carbon dioxide, venous blood 29.2 mmol/L 21.0-32.0 blood glucose 87 mg/dL 65-110 calcium, serum 8.5 mg/dL 8.5-10.1 urea nitrogen, blood 8 mg/dL 7-18 creatinine, serum 0.82 mg/dL 0.55-1.30 sodium, serum 140 mmol/L 166-076 1476/07/13 potassium, serum 3.2 mmol/L 3.5-5.2 chloride, serum 103 mmol/L 98-107 carbon dioxide, venous blood 26.9 mmol/L 21.0-32.0 blood glucose 93 mg/dL 65-110 calcium, serum 9.2 mg/dL 8.5-10.1 urea nitrogen, blood 13 mg/dL 7-18 creatinine, serum 0.84 mg/dL 0.60-1.30 sodium, serum 140 mmol/L 885-221 1171/08/21 potassium, serum 3.8 mmol/L 3.5-5.2 chloride, serum [...] ... - Chemistry sodium, serum 141 mmol/L 968-709 4916/08/07 carbon dioxide, venous blood 34.0 mmol/L 21.0-32.0 [...] 0-19 Encounters Code Encounter Date Provider Facility CPT-28125 Level 4 Est. Patient 14:45:25 CDT Harinder Hernandez DO [facility] CPT-32201 Level 4 Est. Patient 09:15:13 CDT Harinder Hernandez [facility] CPT-43731 Level 3 Est. Patient 11:51:58 CDT Harinder Hernandez [facility] CPT-29309 Level 3 Est. Patient 11:30:05 CDT Harinder Hernandez [facility] CPT-01835 Level 4 Est. Patient 10:19:23 CDT Harinder Hernandez [facility] CPT-52443 Level 3 Est. Patient 09:58:58 CDT Harinder Cr [facility] CPT-14967 Level 3 Est. Patient 12:37:21 CDT Harinder Cr [facility] CPT-81501 Level 3 Est. Patient 18:37:17 CDT Harinder Cr [facility] CPT-67126 Level 4 Est. Patient 11:15:54 CDT Nettie Newberry [facility] CPT-70464 Level 3 Est. Patient 16:42:24 CDT Harinder Cr [facility] CPT-71545 Level 3 Est. Patient 15:03:36 CDT Harinder Cr [facility] CPT-88556 Level 3 Est. Patient 15:03:20 CDT Harinder Hernandez [facility] CPT-10927 Level 3 Est. Patient 12:14:34 CDT Harinder Hernandez [facility] CPT-64429 Level 3 Est. Patient 13:47:15 CDT Harinder Cr [facility] CPT-79128 Level 3 Est. Patient 14:08:24 CDT Harinder Cr [facility] CPT-49785 Level 3 Est. Patient 10:07:15 CDT Harinder Cr [facility] CPT-46091 Level 3 Est. Patient 10:06:59 CDT Harinder Cr [facility] CPT-91602 Level 3 Est. Patient 15:53:29 CDT Jae Morgan MD [facility] CPT-19059 Level 3 Est. Patient 17:19:04 CDT Harinder Shaye David [facility] CPT-81781 Level 3 Est. Patient 11:13:01 CDT Harinder Hernandez [facility] CPT-63128 Level 3 Est. Patient 09:03:58 CDT Harinder Hernandez [facility] CPT-78685 Level 3 Est. Patient 14:46:45 LACE SEWER Harinder Hernandez [facility] CPT-71317 Level 3 Est. Patient 09:35:49 LACE SEWER Harinder Shaye David [facility] CPT-39812 Level 3 Est. Patient 09:29:37 LACE SEWER Harinder Shaye David [facility] CPT-55943 Level 3 Est. Patient 15:51:07 CDT Harinder Hernandez [facility] CPT-93993 Level 3 Est. Patient 18:13:13 CDT Harinder Cr [facility] CPT-10556 Level 3 Est. Patient 10:44:19 CDT Harinder Hernandez [facility] CPT-99290 Level 4 Est. Patient 10:07:19 LACE SEWER Harinder Cr [facility] CPT-16288 Level 3 Est. Patient 15:59:32 LACE SEWER Harinder Shaye [facility] Procedures Code Procedure Name Date Entry Date Standard Description CPT-75368 Abd compl w upright - XRAY USE ONLY 14:48:09 CDT 02/18 CPT-13797 Port a cath flush 13:46:05 CDT CPT-80259 Hip, complete, 2-3 views - XRAY USE ONLY 10:28:40 CDT CPT-68168 BMP - LAB USE ONLY 16:45:09 LACE SEWER CPT-87470 Port a cath flush 12:00:13 LACE SEWER CPT-TCMM Transitional Care Mgmt-Moderate 11:20:16 LACE SEWER CPT-13765 First Vx - Ix admin for Medicare patients 17:35:15 CDT CPT-78518 Fluzone Preservative Free Intramuscular Suspension 17:35 :15 CDT CPT-37740 Microalbumin - LAB USE ONLY 11:52:05 CDT CPT-TCMM Transitional Care Mgmt-Moderate 11:33:57 CDT CPT-85585 No Charge Offi Visit 14:11:29 CDT CPT-57003 Magnesium - LAB USE ONLY 10:45:44 CDT CPT-86566 Lipid - LAB USE ONLY 10:45:44 CDT CPT-63602 CBC - LAB USE ONLY 10:45:44 CDT CPT-87728 Venipuncture Draw Fee 10:45:43 CDT CPT-42053 Venipuncture Draw Fee 18:21:27 CDT CPT-JTINJ Asp/Joint Injection 18:38:04 CDT CPT-30453 Immunization Each Additional Inj 17:38:04 CDT CPT-17472 Immunization Single Admin 17:38:04 CDT CPT-81383 Prevnar 13 17:38:04 CDT CPT-76689 Fluzone Quadrivalent preservative free (>=3yrs.) 17:38: 04 CDT CPT-73381 No Charge Offi Visit 11:14:03 CDT CPT-91390 Chest 2V Frontal and Lat 14:00:18 CDT CPT-OV Office Visit 16:10:28 CDT CPT-JTINJ Asp/Joint Injection 09:03:57 CDT CPT-Cryo Cryotherapy 09:35:49 LACE SEWER CPT-JTINJ Asp/Joint Injection 09:34:45 LACE SEWER CPT-J2930 Solu Medrol 125 mg (Methyl Prednisolone Sodium Succinate) 20:37:27 CDT CPT-94139 Abx/Therapy Injection 20:37:27 CDT CPT-66307 Port a cath flush 08:15:51 CDT CPT-25649 Port a cath flush 09:54:16 CDT CPT-59975 Port a cath flush 09:38:02 CDT CPT-10181 Port a cath flush 11:00:27 LACE SEWER
--- OUTSIDE RECORDS SUMMARY | 2017-12-29 05:23 | XMS REPORT | Clinical Summary ---
Author Author Admin, KAIN Organization [facility] Address [...] Diarrhea Benign positional vertigo 386.11 Active Harinder Hernnadez DO Benign paroxysmal positional vertigo Colon cancer screening V76.51 Active [facility] [employer] Screening for malignant neoplasms of colon Screening for malignant neoplasm, colon V76.51 Active [facility] [employer] Screening for malignant neoplasms of colon Pneumonia 486 Active Harinder Hernandez DO Pneumonia, organism unspecified Bacteremia 790.7 Active Harinder Hernandez DO Unspecified bacteremia Clostridium difficile colitis 008.45 Active Harinder Hernandez DO Intestinal infection due to clostridium difficile Abdominal pain, right lower quadrant 789.03 Active Harinder Hernandez DO Abdominal pain, right lower quadrant Needs vaccination for influenza V04.81 Active 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 Melon[facility] [employer] Need for prophylactic vaccination and inoculation against influenza Need for prophylactic vaccination against streptococcus pneumoniae ( Pneumococcus) V03.82 Active Roxanne Quiñonesum [employer] Need for prophylactic vaccination against Streptococcus pneumoniae [pneumococcus ] Nausea and vomiting ICD-787.01 Inactive Jae Morgan MD Diarrhea ICD-787.91 Inactive Jae Morgan MD Medication List Medication Instructions Start Date Stop Date Generic Name NDC Status Provider Patient Instruction VENTOLIN HFA 108 (90 BASE) MCG/ACT AERS 2 -4 puffs four times a day PRN 2013 ALBUTEROL SULFATE [id number] No Longer Active Jeri Sosa RPT,RMA Active DILAUDID 2 MG ORAL TABS Take 1/2 tab po every 4 hours as needed for pain 2014 HYDROMORPHONE HCL 49791547933 Active Tawnya Pardo MA Active ACEBUTOLOL HCL 200 MG CAPS 1 cap in the morning and 2 caps in the evening ACEBUTOLOL HCL 07386322816 No Longer Active Harinder Hernandez DO Active CEFDINIR 300 MG ORAL CAPS take 1 cap po bid x 10 days CEFDINIR 56961493987 No Longer Active Harinder Hernandez DO Active AMITRIPTYLINE HCL 25 MG ORAL TABS 1 q hs prn AMITRIPTYLINE HCL 66180666223 Active Tawnya Pardo MA Active LOVASTATIN 40 MG TABS 1 pill by mouth nightly for cholesterol LOVASTATIN 30003695264 No Longer Active Nettie Newberry APRN Active NITROSTAT 0.4 MG SUBL 1 tab under tongueas needed for chest pain ( may take 3 total, 5 min apart, then call 911) NITROGLYCERIN 91973365924 No Longer Active Nettie Newberry APRN Active POTASSIUM CHLORIDE CR 10 MEQ CPCR 1 capsule by mouth daily 02/14 POTASSIUM CHLORIDE 94535823523 No Longer Active Nettie Rohith MAHENDRA Active TESSALON PERLES 100 MG CAP 1 to 2 tablets by mouth 3 times daily as needed for cough BENZONATATE 16692249250 No Longer Active Nettie Newberry MAHENDRA Active THEOPHYLLINE ER 200 MG ORAL [id number]-HHU Take 1 tab every 12 hours THEOPHYLLINE 07203925552 Active Harinder Hernandez DO Active PREDNISONE 20 MG TAB 2 po qd x 5 days PREDNISONE 21766997528 No Longer Active Jae Morgan MD Active AZITHROMYCIN 250 MG TABS 2 po qd x 1 day, then 1 po qd x 4 days AZITHROMYCIN 02562558822 No Longer Active Jae Morgan MD Active PREDNISONE 20 MG TAB 1 tab twice daily for 3 day, then one daily for three days PREDNISONE 52912414036 No Longer Active Jae Morgna MD Active MECLIZINE HCL 25 MG TAB 1 tablet three times daily for 3 days, then 1/2 tab three times daily for 3 days. MECLIZINE HCL 60402802371 Active Harinder Hernandez DO Active SINGULAIR 10 MG TABS 1 pill by mouth every evening for breathing. MONTELUKAST SODIUM 73956307887 Active Tawnya Pardo MA Active TYLENOL 325 MG TAB 3 by mouth q4h as needed ACETAMINOPHEN 70535616886 Active Harinder Hernandez DO Active POTASSIUM CHLORIDE ER 10 MEQ CR-TABS take 1 tab po daily POTASSIUM CHLORIDE 53688664817 No Longer Active Harinder Hernandez DO Active PREDNISONE 20 MG TAB 1 TID x 2 days, then 1 BID x 3 days, then 1 Daily x 3 days, then stop PREDNISONE 24324395271 No Longer Active John Montemayor APRN Active LEVAQUIN 500 MG TAB 1 tablet by mouth daily LEVOFLOXACIN 60986321638 No Longer Active Jillina Frashai [employer] Active NEURONTIN 300 MG CAP 1 cap by mouth three times daily for restless leg 06/22 GABAPENTIN 97349734516 No Longer Active Harinder Hernandez DO Active BENZONATATE 100 MG CAPS 1 cap po TID PRN BENZONATATE 65647374277 No Longer Active Harinder Hernandez DO Active MONTELUKAST SODIUM 10 MG TABS 1 tab po in the evening MONTELUKAST SODIUM 26791539838 No Longer Active Harinder Hernandez DO Active MUPIROCIN 2 % OINT apply to affected area BID x 14 days MUPIROCIN 89808195044 No Longer Active Harinder Hernandez DO Active TYLENOL EXTRA STRENGTH 500 MG TABS as needed ACETAMINOPHEN 65346386116 No Longer Active Harinder Hernandez DO Active PREDNISONE 10 MG TABS 1 tab po daily PREDNISONE 86974403680 No Longer Active Harinder Hernandez DO Active PREDNISONE 20 MG TAB 2 tabs daily for 4 days, 1 tab daily for 4 days, 1/2 tab daily for 4 days PREDNISONE 85578762121 No Longer Active Harinder Hernandez DO Active AZITHROMYCIN 250 MG TABS 2 po qd x 1 day, then 1 po qd x 4 days AZITHROMYCIN 24376913166 No Longer Active Harinder Hernandez DO Active PREDNISONE 20 MG TAB 3 tabs today, then 1 tab twice daily for 3 day, then one daily for three days PREDNISONE 85457205649 No Longer Active Harinder Hernandez DO Active NIFEDIAC CC 30 MG [id number] 1 tablet daily for raynaud's syndrome NIFEDIPINE 69749747915 Active Harinder Hernandez DO Active AMBIEN 10 MG TAB 1/2 tab by mouth at bedtime as needed for sleep ZOLPIDEM TARTRATE 19773299824 Active Harinder Hernandez DO Active CLONAZEPAM 1 MG TABS 1 tablet at bedtime for insomnia and restless legs 09/14 CLONAZEPAM 46758354929 Active Harinder Hernandez DO Active CLONAZEPAM 0.5 MG TABS 1 tab po daily CLONAZEPAM 78766003989 No Longer Active Harinder Hernandez Active PREDNISONE 10 MG TAB 1 tablet daily for COPD PREDNISONE 83161835480 Active Tawnya Pardo MA Active PROAIR HFA 108 (90 BASE) MCG/ACT AERS 2 puffs four times a day as needed 2012 ALBUTEROL SULFATE 84988666113 Active Tawnya Pardo MA Active FLOVENT HFA 110 MCG/ACT AERO 2 puffs inhaled b.i.d. FLUTICASONE PROPIONATE HFA 37315516365 Active Tawnya Pardo MA Active EPIPEN 0.3 MG/0.3ML URIEL DIRECTED EPINEPHRINE Active Demetrius JOHNSON Active ACIPHEX 20 MG TBEC 1 tab po daily RABEPRAZOLE SODIUM 69537503392 Active Tawnya Pardo MA Active TOPIRAMATE 25 MG TABS 1 tab po BID TOPIRAMATE 88057164668 Active Tawnya Pardo MA Active CLONAZEPAM 0.5 MG TABS 1 tab po daily CLONAZEPAM 0.5 MG TABS 036039 CLONAZEPAM Inactive PREDNISONE 20 MG TAB 3 tabs today, then 1 tab twice daily for 3 day, then one daily for three days PREDNISONE 20 MG TAB 322969 PREDNISONE Inactive PREDNISONE 20 MG TAB 2 tabs daily for 4 days, 1 tab daily for 4 days, 1/2 tab daily for 4 days PREDNISONE 20 MG TAB 384989 PREDNISONE Inactive PREDNISONE 10 MG TABS 1 tab po daily PREDNISONE 10 MG TABS 643043 PREDNISONE Inactive TYLENOL EXTRA STRENGTH 500 MG TABS as needed TYLENOL EXTRA STRENGTH 500 MG TABS 054113 ACETAMINOPHEN Inactive MUPIROCIN 2 % OINT apply to affected area BID x 14 days MUPIROCIN 2 % OINT 900981 MUPIROCIN Inactive MONTELUKAST SODIUM 10 MG TABS 1 tab po in the evening MONTELUKAST SODIUM 10 MG TABS 20010818 MONTELUKAST SODIUM Inactive BENZONATATE 100 MG CAPS 1 cap po TID PRN BENZONATATE 100 MG CAPS 724795 BENZONATATE Inactive NEURONTIN 300 MG CAP 1 cap by mouth three times daily for restless leg 06/22 NEURONTIN 300 MG CAP 577353 GABAPENTIN Inactive LEVAQUIN 500 MG TAB 1 tablet by mouth daily LEVAQUIN 500 MG TAB 494057 LEVOFLOXACIN Inactive PREDNISONE 20 MG TAB 1 TID x 2 days, then 1 BID x 3 days, then 1 Daily x 3 days, then stop PREDNISONE 20 MG TAB 074185 PREDNISONE Inactive POTASSIUM CHLORIDE ER 10 MEQ CR-TABS take 1 tab po daily POTASSIUM CHLORIDE ER 10 MEQ CR-TABS POTASSIUM CHLORIDE Inactive PREDNISONE 20 MG TAB 1 tab twice daily for 3 day, then one daily for three days PREDNISONE 20 MG TAB 955223 PREDNISONE Inactive TESSALON PERLES 100 MG CAP 1 to 2 tablets by mouth 3 times daily as needed for cough TESSALON PERLES 100 MG CAP 314788 BENZONATATE Inactive POTASSIUM CHLORIDE CR 10 MEQ [...] nightly for cholesterol LOVASTATIN 40 MG TABS 574448 LOVASTATIN Inactive CEFDINIR 300 MG ORAL CAPS take 1 cap po bid x 10 days CEFDINIR 300 MG ORAL CAPS 564637 CEFDINIR Inactive ACEBUTOLOL HCL 200 MG CAPS 1 cap in the morning and 2 caps in the evening ACEBUTOLOL HCL 200 MG CAPS 896714 ACEBUTOLOL HCL Inactive VENTOLIN HFA 108 (90 BASE) MCG/ACT AERS 2 -4 puffs four times a day PRN 2013 VENTOLIN HFA 108 (90 BASE) MCG/ACT AERS ALBUTEROL SULFATE Inactive AZITHROMYCIN 250 MG TABS 2 po qd x 1 day, then 1 po qd x 4 days AZITHROMYCIN 250 MG TABS 2780809 AZITHROMYCIN Inactive AZITHROMYCIN 250 MG TABS 2 po qd x 1 day, then 1 po qd x 4 days AZITHROMYCIN 250 MG TABS 8523736 AZITHROMYCIN Inactive PREDNISONE 20 MG TAB 2 po qd x 5 days PREDNISONE 20 MG TAB 346947 PREDNISONE Inactive Vital Signs Date Name Value [...] Panel - Chemistry sodium, serum 138 mmol/L 016-008 7409/09/24 potassium, serum 3.5 mmol/L 3.5-5.2 chloride, serum [...] AUTO - Chemistry sodium, serum 141 mmol/L 798-250 9599/03/02 potassium, serum 3.4 mmol/L 3.5-5.2 chloride, serum [...] Negative Encounters Code Encounter Date Provider Facility CPT-92402 Level 3 Est. Patient 12:14:34 CDT Harinder Hernandez [facility] CPT-46055 Level 3 Est. Patient 13:47:15 CDT Harinder Hernandez [facility] CPT-53547 Level 3 Est. Patient 14:08:24 CDT Harinder Hernandez [facility] CPT-19400 Level 3 Est. Patient 10:07:15 CDT Harinder Cr [facility] CPT-97695 Level 3 Est. Patient 10:06:59 CDT Harinder Hernandez [facility] CPT-18055 Level 3 Est. Patient 15:53:29 CDT Jae Morgan MD [facility] CPT-03524 Level 3 Est. Patient 17:19:04 CDT Harinder Hernandez [facility] CPT-90362 Level 3 Est. Patient 11:13:01 CDT Harinder Hernandez [facility] CPT-54174 Level 3 Est. Patient 09:03:58 CDT Harinder Hernandez [facility]-39395 Level 3 Est. Patient 14:46:45 [employer] Harinder Cr [facility]-40984 Level 3 Est. Patient 09:35:49 [employer] Harinder W [facility] CPT-55379 Level 3 Est. Patient 09:29:37 [employer] Harinder Hernandez [facility] CPT-11743 Level 3 Est. Patient 15:51:07 CDT Harinder Hernandez [facility] CPT-65140 Level 3 Est. Patient 18:13:13 CDT Harinder Hernandez [facility] CPT-58000 Level 3 Est. Patient 10:44:19 CDT Harinder Hernandez [facility] CPT-28219 Level 4 Est. Patient 10:07:19 [place] Harinder Hernandez [facility] CPT-07714 Level 3 Est. Patient 15:59:32 [employer] Harinder Cr [facility] Procedures Code Procedure Name Date Entry Date Standard Description CPT-07757 Immunization Each Additional Inj 17:38:04 CDT CPT-85082 Immunization Single Admin 17:38:04 CDT CPT-57517 Prevnar 13 17:38:04 CDT CPT-90054 Fluzone Quadrivalent preservative free (>=3yrs.) 17:38: 04 CDT CPT-97783 No Charge Offi Visit 11:14:03 CDT CPT-30770 Chest 2V Frontal and Lat 14:00:18 CDT CPT-OV Office Visit 16:10:28 CDT CPT-JTINJ Asp/Joint Injection 09:03:57 CDT CPT-Cryo Cryotherapy 09:35:49 WH[employer]ER CPT-JTINJ Asp/Joint Injection 09:34:45 WH[employer] S[employer]ER CPT-J2930 Solu Medrol 125 mg (Methyl Prednisolone Sodium Succinate) 20:37:27 CDT CPT-02059 Abx/Therapy Injection 20:37:27 CDT CPT-09571 Port a cath flush 08:15:51 CDT CPT-96788 Port a cath flush 09:54:16 CDT CPT-07991 Port a cath flush 09:38:02 CDT CPT-84116 Port a cath flush 11:00:27 WH[employer] S[employer]ER
--- OUTSIDE RECORDS SUMMARY | 2017-12-29 05:25 | XMS REPORT | Clinical Summary ---
Author Author Admin, QIE Organization [facility] [employer] Address Unknown Phone Unavailable Allergies, Adverse [...] DO PENICILLIN V POTASSIUM Critical Active Harinder Hernadnez DO MORPHINE Critical Active Harinder Hernandez DO [...] MG/0.3ML INJ SOAJ 1 INJ NEEDED EPINEPHRINE 92006938283 Active Tawnya Pardo MA Active PREDNISONE 20 MG TAB 1 tab twice daily for 3 day, then one daily for three days PREDNISONE 24129921061 No Longer Active Harinder Hernandez DO Active PREDNISONE 20 MG TAB 1 tablet twice daily for 2 days, then 1 tablet once daily for 2 days PREDNISONE 84857649674 No Longer Active Harinder Hernandez DO Active ASMANEX 120 METERED DOSES 220 MCG/INH INH AEPB 2 puffs orally twice daily MOMETASONE FUROATE 66711476316 Active Jeri Sosa RPT,RMA Active NIFEDIPINE ER 30 MG ORAL [id number] 1 daily NIFEDIPINE 37878384035 Active Kaylah Newberry Active TOPIRAMATE 25 MG TABS 1 tab po BID TOPIRAMATE 40699404502 No Longer Active Nettie Newberry APRN Active AMLODIPINE BESYLATE 5 MG ORAL TABS Take 1 tab po daily AMLODIPINE BESYLATE 28238853504 No Longer Active Nettie Newberry APRN Active MECLIZINE HCL 25 MG TAB 1 tablet three times daily for 3 days, then 1/2 tab three times daily for 3 days. MECLIZINE HCL 96235246889 No Longer Active Nettie Newberry APRN Active AMITRIPTYLINE HCL 25 MG ORAL TABS 1 q hs prn AMITRIPTYLINE HCL 45111195517 No Longer Active Nettie Newberry APRN Active DILAUDID 2 MG ORAL TABS Take 1/2 tab po every 4 hours as needed for pain 2014 HYDROMORPHONE HCL 20670343352 No Longer Active Nettie Newberry APRN Active CLOPIDOGREL BISULFATE 75 MG ORAL TABS 1 tab by mouth once daily CLOPIDOGREL BISULFATE 87000653087 Active Tawnya Pardo MA Active ATORVASTATIN CALCIUM 10 MG ORAL TABS 1 at bedtime ATORVASTATIN CALCIUM 72052218706 Active Tawnya Pardo MA Active LOVASTATIN 40 MG ORAL TABS Take 1 tab po every hs LOVASTATIN 17148922508 No Longer Active Harinder Hernandez DO Active PREDNISONE 20 MG TAB 2 tabs daily for 4 days, 1 tab daily for 4 days, 1/2 tab daily for 4 days PREDNISONE 67154349611 No Longer Active Harinder Hernandez DO Active LEVAQUIN 500 MG ORAL TABS Take 1 tab po daily x 8 days LEVOFLOXACIN 76234769317 No Longer Active Harinder Hernandez DO Active VENTOLIN HFA 108 (90 BASE) MCG/ACT AERS 2 -4 puffs four times a day PRN 2013 ALBUTEROL SULFATE 87346543137 No Longer Active Jeri Sosa RPT,RMA Active ACEBUTOLOL HCL 200 MG CAPS 1 cap in the morning and 2 caps in the evening ACEBUTOLOL HCL 17298602458 No Longer Active Harinder Hernandez DO Active CEFDINIR 300 MG ORAL CAPS take 1 cap po bid x 10 days CEFDINIR 60352827061 No Longer Active Harinder Hernandez DO Active LOVASTATIN 40 MG TABS 1 pill by mouth nightly for cholesterol LOVASTATIN 84639921377 No Longer Active Nettie Newberry APRN Active NITROSTAT 0.4 MG SUBL 1 tab under tongueas needed for chest pain ( may take 3 total, 5 min apart, then call 911) NITROGLYCERIN 63342715653 No Longer Active Nettie Newberry APRN Active POTASSIUM CHLORIDE CR 10 MEQ CPCR 1 capsule by mouth daily 02/14 POTASSIUM CHLORIDE 90170841823 No Longer Active Nettie Newberry APRN Active TESSALON PERLES 100 MG CAP 1 to 2 tablets by mouth 3 times daily as needed for cough BENZONATATE 67101337122 No Longer Active Nettie Newberry APRN Active THEOPHYLLINE ER 200 MG ORAL [id number] Take 1 tab every 12 hours THEOPHYLLINE 31192102004 Active Tawnya Pardo MA Active PREDNISONE 20 MG TAB 2 po qd x 5 days PREDNISONE 21813250291 No Longer Active Jae Morgan MD Active AZITHROMYCIN 250 MG TABS 2 po qd x 1 day, then 1 po qd x 4 days AZITHROMYCIN 46461226492 No Longer Active Jae Morgan MD Active PREDNISONE 20 MG TAB 1 tab twice daily for 3 day, then one daily for three days PREDNISONE 59942662207 No Longer Active Jae Morgan MD Active SINGULAIR 10 MG TABS 1 pill by mouth every evening for breathing. MONTELUKAST SODIUM 93402935495 Active Tawnya Pardo MA Active TYLENOL 325 MG TAB 3 by mouth q4h as needed ACETAMINOPHEN 55717971840 Active Harinder Hernandez DO Active POTASSIUM CHLORIDE ER 10 MEQ CR-TABS take 1 tab po daily POTASSIUM CHLORIDE 52775712794 No Longer Active Harinder Hernandez DO Active PREDNISONE 20 MG TAB 1 TID x 2 days, then 1 BID x 3 days, then 1 Daily x 3 days, then stop PREDNISONE 63015470066 No Longer Active John Montemayor APRN Active LEVAQUIN 500 MG TAB 1 tablet by mouth daily LEVOFLOXACIN 67771973428 No Longer Active Jillkvng Montemayor APRN Active NEURONTIN 300 MG CAP 1 cap by mouth three times daily for restless leg 06/22 GABAPENTIN 40919414220 No Longer Active Harinder Hernandez DO Active BENZONATATE 100 MG CAPS 1 cap po TID PRN BENZONATATE 98243556120 No Longer Active Harinder Hernandez DO Active MONTELUKAST SODIUM 10 MG TABS 1 tab po in the evening MONTELUKAST SODIUM 09649394079 No Longer Active Harinder Hernandez DO Active MUPIROCIN 2 % OINT apply to affected area BID x 14 days MUPIROCIN 18242885437 No Longer Active Harinder Hernandez DO Active TYLENOL EXTRA STRENGTH 500 MG TABS as needed ACETAMINOPHEN 93805378976 No Longer Active Harinder Hernandez DO Active PREDNISONE 10 MG TABS 1 tab po daily PREDNISONE 57531909186 No Longer Active Harinder Hernandez DO Active PREDNISONE 20 MG TAB 2 tabs daily for 4 days, 1 tab daily for 4 days, 1/2 tab daily for 4 days PREDNISONE 84470844461 No Longer Active Harinder Hernandez DO Active AZITHROMYCIN 250 MG TABS 2 po qd x 1 day, then 1 po qd x 4 days AZITHROMYCIN 01982524148 No Longer Active Harinder Hernandez DO Active PREDNISONE 20 MG TAB 3 tabs today, then 1 tab twice daily for 3 day, then one daily for three days PREDNISONE 63487338764 No Longer Active Harinder Hernandez DO Active NIFEDIAC CC 30 MG [id number] 1 tablet daily for raynaud's syndrome NIFEDIPINE 99467066098 No Longer Active Tawnya Pardo MA Active AMBIEN 10 MG TAB 1/2 tab by mouth at bedtime as needed for sleep ZOLPIDEM TARTRATE 61270210559 Active Harinder Hernandez DO Active CLONAZEPAM 1 MG TABS 1 tablet at bedtime for insomnia and restless legs 09/14 CLONAZEPAM 38798988144 Active Harinder Hernandez DO Active CLONAZEPAM 0.5 MG TABS 1 tab po daily CLONAZEPAM 86539114127 No Longer Active Harinder Hernandez DO Active PREDNISONE 10 MG TAB 1 tablet daily for COPD PREDNISONE 32918354185 Active Tawnya Pardo MA Active PROAIR HFA 108 (90 BASE) MCG/ACT AERS 2 puffs four times a day as needed 2012 ALBUTEROL SULFATE 09735494031 Active Tawnya Pardo MA Active FLOVENT HFA 110 MCG/ACT AERO 2 puffs inhaled b.i.d. FLUTICASONE PROPIONATE HFA 19018714614 Active Tawnya Pardo MA Active ACIPHEX 20 MG TBEC 1 tab po daily RABEPRAZOLE SODIUM 77007775359 Active Kaylah Newberry Active CLONAZEPAM 0.5 MG TABS 1 tab po daily CLONAZEPAM 0.5 MG TABS 838512 CLONAZEPAM Inactive PREDNISONE 20 MG TAB 3 tabs today, then 1 tab twice daily for 3 day, then one daily for three days PREDNISONE 20 MG TAB 575498 PREDNISONE Inactive PREDNISONE 20 MG TAB 2 tabs daily for 4 days, 1 tab daily for 4 days, 1/2 tab daily for 4 days PREDNISONE 20 MG TAB 673743 PREDNISONE Inactive PREDNISONE 10 MG TABS 1 tab po daily PREDNISONE 10 MG TABS 930123 PREDNISONE Inactive TYLENOL EXTRA STRENGTH 500 MG TABS as needed TYLENOL EXTRA STRENGTH 500 MG TABS 176089 ACETAMINOPHEN Inactive MUPIROCIN 2 % OINT apply to affected area BID x 14 days MUPIROCIN 2 % OINT 685608 MUPIROCIN Inactive MONTELUKAST SODIUM 10 MG TABS 1 tab po in the evening MONTELUKAST SODIUM 10 MG TABS 998831 MONTELUKAST SODIUM Inactive BENZONATATE 100 MG CAPS 1 cap po TID PRN BENZONATATE 100 MG CAPS 709260 BENZONATATE Inactive NEURONTIN 300 MG CAP 1 cap by mouth three times daily for restless leg 06/22 NEURONTIN 300 MG CAP 166806 GABAPENTIN Inactive LEVAQUIN 500 MG TAB 1 tablet by mouth daily LEVAQUIN 500 MG TAB 017003 LEVOFLOXACIN Inactive PREDNISONE 20 MG TAB 1 TID x 2 days, then 1 BID x 3 days, then 1 Daily x 3 days, then stop PREDNISONE 20 MG TAB 305073 PREDNISONE Inactive POTASSIUM CHLORIDE ER 10 MEQ CR-TABS take 1 tab po daily POTASSIUM CHLORIDE ER 10 MEQ CR-TABS POTASSIUM CHLORIDE Inactive PREDNISONE 20 MG TAB 1 tab twice daily for 3 day, then one daily for three days PREDNISONE 20 MG TAB 569337 PREDNISONE Inactive TESSALON PERLES 100 MG CAP 1 to 2 tablets by mouth 3 times daily as needed for cough TESSALON PERLES 100 MG CAP 257267 BENZONATATE Inactive POTASSIUM CHLORIDE CR 10 MEQ CPCR 1 capsule by mouth daily 02/14 POTASSIUM CHLORIDE CR 10 MEQ CPCR POTASSIUM CHLORIDE Inactive NITROSTAT 0.4 MG SUBL 1 tab under tongueas needed for chest pain ( may take 3 total, 5 min apart, then call 911) NITROSTAT 0.4 MG SUBL 457982 NITROGLYCERIN Inactive LOVASTATIN 40 MG TABS 1 pill by mouth nightly for cholesterol LOVASTATIN 40 MG TABS 243429 LOVASTATIN Inactive CEFDINIR 300 MG ORAL CAPS take 1 cap po bid x 10 days CEFDINIR 300 MG ORAL CAPS 526458 CEFDINIR Inactive ACEBUTOLOL HCL 200 MG CAPS 1 cap in the morning and 2 caps in the evening ACEBUTOLOL HCL 200 MG CAPS 200371 ACEBUTOLOL HCL Inactive VENTOLIN HFA 108 (90 BASE) MCG/ACT AERS 2 -4 puffs four times a day PRN 2013 VENTOLIN HFA 108 (90 BASE) MCG/ACT AERS ALBUTEROL SULFATE Inactive LEVAQUIN 500 MG ORAL TABS Take 1 tab po daily x 8 days LEVAQUIN 500 MG ORAL TABS 323924 LEVOFLOXACIN Inactive PREDNISONE 20 MG TAB 2 tabs daily for 4 days, 1 tab daily for 4 days, 1/2 tab daily for 4 days PREDNISONE 20 MG TAB 860076 PREDNISONE Inactive LOVASTATIN 40 MG ORAL TABS Take 1 tab po every hs LOVASTATIN 40 MG ORAL TABS 166431 LOVASTATIN Inactive DILAUDID 2 MG ORAL TABS Take 1/2 tab po every 4 hours as needed for pain 2014 DILAUDID 2 MG ORAL TABS 899692 HYDROMORPHONE HCL Inactive AMITRIPTYLINE HCL 25 MG ORAL TABS 1 q hs prn AMITRIPTYLINE HCL 25 MG ORAL TABS 656915 AMITRIPTYLINE HCL Inactive MECLIZINE HCL 25 MG TAB 1 tablet three times daily for 3 days, then 1/2 tab three times daily for 3 days. MECLIZINE HCL 25 MG TAB 031595 MECLIZINE HCL Inactive AMLODIPINE BESYLATE 5 MG ORAL TABS Take 1 tab po daily AMLODIPINE BESYLATE 5 MG ORAL TABS 655354 AMLODIPINE BESYLATE Inactive TOPIRAMATE 25 MG TABS 1 tab po BID TOPIRAMATE 25 MG TABS 129118 TOPIRAMATE Inactive PREDNISONE 20 MG TAB 1 tablet twice daily for 2 days, then 1 tablet once daily for 2 days PREDNISONE 20 MG TAB 865628 PREDNISONE Inactive PREDNISONE 20 MG TAB 1 tab twice daily for 3 day, then one daily for three days PREDNISONE 20 MG TAB 310380 PREDNISONE Inactive AZITHROMYCIN 250 MG TABS 2 po qd x 1 day, then 1 po qd x 4 days AZITHROMYCIN 250 MG TABS 4239930 AZITHROMYCIN Inactive AZITHROMYCIN 250 MG TABS 2 po qd x 1 day, then 1 po qd x 4 days AZITHROMYCIN 250 MG TABS 7213307 AZITHROMYCIN Inactive PREDNISONE 20 MG TAB 2 po qd x 5 days PREDNISONE 20 MG TAB 856602 PREDNISONE Inactive Vital Signs Date Name Value [...] Magnesium - Chemistry cholesterol, serum 180 mg/dL 178-863 3578/08/08 triglyceride, serum, fasting 92 mg/dL 30-200 HDL cholesterol, serum 66 mg/dL 32-96 LDL cholesterol, serum 96 mg/dL 0-130 sodium, serum 142 mmol/L 919-180 3018/08/08 carbon dioxide, venous blood 27.4 mmol/L 21.0-32.0 [...] 10.0-20.0 Encounters Code Encounter Date Provider Facility CPT-78366 Level 3 Est. Patient 09:58:58 CDT Harinder Cr [facility] CPT-13539 Level 3 Est. Patient 12:37:21 CDT Harinder Cr [facility] CPT-27979 Level 3 Est. Patient 18:37:17 CDT Harinder Cr [facility] CPT-84647 Level 4 Est. Patient 11:15:54 CDT Nettie Newberry [facility] CPT-48502 Level 3 Est. Patient 16:42:24 CDT Harinder Cr [facility] CPT-64534 Level 3 Est. Patient 15:03:36 CDT Harinder W [facility] CPT-02082 Level 3 Est. Patient 15:03:20 CDT Harinder Hernandez [facility] CPT-45734 Level 3 Est. Patient 12:14:34 CDT Harinder Hernandez [facility] CPT-63722 Level 3 Est. Patient 13:47:15 CDT Harinder Hernandez [facility] CPT-07126 Level 3 Est. Patient 14:08:24 CDT Harinder Hernandez [facility] CPT-31505 Level 3 Est. Patient 10:07:15 CDT Harinder Hernandez [facility] CPT-79548 Level 3 Est. Patient 10:06:59 CDT Harinder Hernandez [facility] CPT-10765 Level 3 Est. Patient 15:53:29 CDT Jae Morgan MD [facility] CPT-81891 Level 3 Est. Patient 17:19:04 CDT Harinder Hernandez [facility] CPT-57924 Level 3 Est. Patient 11:13:01 CDT Harinder Hernandez [facility] CPT-02365 Level 3 Est. Patient 09:03:58 CDT Harinder Hernandez [facility] CPT-63321 Level 3 Est. Patient 14:46:45 [employer] MARKET[employer]IST Harinder Hernandez [facility] CPT-00943 Level 3 Est. Patient 09:35:49 SEARCH MARKETING SPECIALIST Harinder Hernandez [facility] CPT-49380 Level 3 Est. Patient 09:29:37 SEARCH MARKETING SPECIALIST Harinder Hernandez [facility] CPT-12122 Level 3 Est. Patient 15:51:07 CDT Harinder Hernandez [facility] CPT-95901 Level 3 Est. Patient 18:13:13 CDT Harinder Cr [facility] CPT-80760 Level 3 Est. Patient 10:44:19 CDT Harinder Hernandez [facility] CPT-47768 Level 4 Est. Patient 10:07:19 SEARCH MARKETING SPECIALIST Harinder Hernandez [facility] CPT-50417 Level 3 Est. Patient 15:59:32 SEARCH MARKETING SPECIALIST Harinder Hernandez [facility] Procedures Code Procedure Name Date Entry Date Standard Description CPT-40896 First Vx - Ix admin for Medicare patients 17:35:15 CDT CPT-52168 Fluzone Preservative Free Intramuscular Suspension 17:35 :15 CDT CPT-69768 Microalbumin - LAB USE ONLY 11:52:05 CDT CPT-TCMM Transitional Care Mgmt-Moderate 11:33:57 CDT CPT-69368 No Charge Offi Visit 14:11:29 CDT CPT-43395 Magnesium - LAB USE ONLY 10:45:44 CDT CPT-16713 Lipid - LAB USE ONLY 10:45:44 CDT CPT-80154 CBC - LAB USE ONLY 10:45:44 CDT CPT-40086 Venipuncture Draw Fee 10:45:43 CDT CPT-18396 Venipuncture Draw Fee 18:21:27 CDT CPT-JTINJ Asp/Joint Injection 18:38:04 CDT CPT-61089 Immunization Each Additional Inj 17:38:04 CDT CPT-53184 Immunization Single Admin 17:38:04 CDT CPT-40392 Prevnar 13 17:38:04 CDT CPT-37163 Fluzone Quadrivalent preservative free (>=3yrs.) 17:38: 04 CDT CPT-20179 No Charge Offi Visit 11:14:03 CDT CPT-40962 Chest 2V Frontal and Lat 14:00:18 CDT CPT-OV Office Visit 16:10:28 CDT CPT-JTINJ Asp/Joint Injection 09:03:57 CDT CPT-Cryo Cryotherapy 09:35:49 SEARCH MARKETING SPECIALIST CPT-JTINJ Asp/Joint Injection 09:34:45 SEARCH MARKETING SPECIALIST CPT-J2930 Solu Medrol 125 mg (Methyl Prednisolone Sodium Succinate) 20:37:27 CDT CPT-45501 Abx/Therapy Injection 20:37:27 CDT CPT-64988 Port a cath flush 08:15:51 CDT CPT-57580 Port a cath flush 09:54:16 CDT CPT-57697 Port a cath flush 09:38:02 CDT CPT-20348 Port a cath flush 11:00:27 SEARCH MARKETING SPECIALIST
--- OUTSIDE RECORDS SUMMARY | 2017-12-29 05:26 | XMS REPORT | Clinical Summary ---
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 NIFEDIPINE 18570066946 Active Harinder Hernandez DO Active AMLODIPINE BESYLATE 5 MG TABS 1 tablet by mouth daily AMLODIPINE BESYLATE 91928225214 No Longer Active Harinder Hernandez DO Active TOPAMAX 25 MG ORAL TABS 1 tab po BID TOPIRAMATE 37571742847 Active Kortney Mccain Active FLUTICASONE PROPIONATE 50 MCG/ACT SUSP 2 sprays per nostril daily PRN Allergies FLUTICASONE PROPIONATE 70030332082 Active Kortney Mccain Active NIFEDIPINE ER 30 MG ORAL [id number] 1 daily NIFEDIPINE 59954842491 No Longer Active Harinder Hernandez DO Active POTASSIUM CHLORIDE 20 MEQ ORAL PACK Take 1 tablet by mouth daily POTASSIUM CHLORIDE 63180673371 Prince Pimentel Active FLOVENT HFA 110 MCG/ACT AERO 2 puffs inhaled b.i.d. FLUTICASONE PROPIONATE HFA 59137912513 Active Harinder Hernandez DO Active POTASSIUM CHLORIDE CR 10 MEQ CPCR 1 capsule by mouth daily POTASSIUM CHLORIDE 24606764544 Active Harinder W David DO Active EPIPEN 2-BRUNA 0.3 MG/0.3ML INJ SOAJ 1 INJ NEEDED EPINEPHRINE 40485762138 Active Harinder Hernandez DO Active PREDNISONE 20 MG TAB 1 tab twice daily for 3 day, then one daily for three days PREDNISONE 95460623392 No Longer Active Harinder Hernandez DO Active PREDNISONE 20 MG TAB 1 tablet twice daily for 2 days, then 1 tablet once daily for 2 days PREDNISONE 80137118182 No Longer Active Harinder Hernandez DO Active ASMANEX 120 METERED DOSES 220 MCG/INH INH AEPB 2 puffs orally twice daily MOMETASONE FUROATE 98164284616 Active Jeri Sosa RPT,RMA Active TOPIRAMATE 25 MG TABS 1 tab po BID TOPIRAMATE 75728395968 No Longer Active Nettie Newberry APRN Active AMLODIPINE BESYLATE 5 MG ORAL TABS Take 1 tab po daily AMLODIPINE BESYLATE 74867744129 No Longer Active Nettie Newberry APRN Active MECLIZINE HCL 25 MG TAB 1 tablet three times daily for 3 days, then 1/2 tab three times daily for 3 days. MECLIZINE HCL 85075819339 No Longer Active Nettie Newberry APRN Active AMITRIPTYLINE HCL 25 MG ORAL TABS 1 q hs prn AMITRIPTYLINE HCL 69070418519 No Longer Active Nettie Newberry APRN Active DILAUDID 2 MG ORAL TABS Take 1/2 tab po every 4 hours as needed for pain 2014 HYDROMORPHONE HCL 21061037396 No Longer Active Nettie Newberry APRN Active CLOPIDOGREL BISULFATE 75 MG ORAL TABS 1 tab by mouth once daily CLOPIDOGREL BISULFATE 81211090141 Active Harinder Hernandez DO Active ATORVASTATIN CALCIUM 10 MG ORAL TABS 1 at bedtime ATORVASTATIN CALCIUM 32851258585 Active Tawnya Pardo MA Active LOVASTATIN 40 MG ORAL TABS Take 1 tab po every hs LOVASTATIN 86676718156 No Longer Active Harinder W David DO Active PREDNISONE 20 MG TAB 2 tabs daily for 4 days, 1 tab daily for 4 days, 1/2 tab daily for 4 days PREDNISONE 86280472236 No Longer Active Harinder Hernandez DO Active LEVAQUIN 500 MG ORAL TABS Take 1 tab po daily x 8 days LEVOFLOXACIN 81452093349 No Longer Active Harinder Hernandez DO Active VENTOLIN HFA 108 (90 BASE) MCG/ACT AERS 2 -4 puffs four times a day PRN 2013 ALBUTEROL SULFATE 47872242886 No Longer Active Jeri Sosa RPT,RMA Active ACEBUTOLOL HCL 200 MG CAPS 1 cap in the morning and 2 caps in the evening ACEBUTOLOL HCL 86891171610 No Longer Active Harinder Hernandez DO Active CEFDINIR 300 MG ORAL CAPS take 1 cap po bid x 10 days CEFDINIR 79119817950 No Longer Active Harinder Hernandez DO Active LOVASTATIN 40 MG TABS 1 pill by mouth nightly for cholesterol LOVASTATIN 35226214644 No Longer Active Nettie Newberry APRN Active NITROSTAT 0.4 MG SUBL 1 tab under tongueas needed for chest pain ( may take 3 total, 5 min apart, then call 911) NITROGLYCERIN 63425634543 No Longer Active Nettie Newberry APRN Active POTASSIUM CHLORIDE CR 10 MEQ CPCR 1 capsule by mouth daily 02/14 POTASSIUM CHLORIDE 18185231766 No Longer Active Nettie Newberry APRN Active TESSALON PERLES 100 MG CAP 1 to 2 tablets by mouth 3 times daily as needed for cough BENZONATATE 29440042653 No Longer Active Nettie Newberry APRN Active THEOPHYLLINE ER 200 MG ORAL [id number] Take 1 tab every 12 hours THEOPHYLLINE 60241665065 Active Kortney Mccain Active PREDNISONE 20 MG TAB 2 po qd x 5 days PREDNISONE 92091836311 No Longer Active Jae Morgan MD Active AZITHROMYCIN 250 MG TABS 2 po qd x 1 day, then 1 po qd x 4 days AZITHROMYCIN 71770040123 No Longer Active Jae Morgan MD Active PREDNISONE 20 MG TAB 1 tab twice daily for 3 day, then one daily for three days PREDNISONE 69265715831 No Longer Active Jae Morgan MD Active SINGULAIR 10 MG TABS 1 pill by mouth every evening for breathing. MONTELUKAST SODIUM 80401075987 Active Tawnya Pardo MA Active TYLENOL 325 MG TAB 3 by mouth q4h as needed ACETAMINOPHEN 87996445410 Active Harinder Hernandez DO Active POTASSIUM CHLORIDE ER 10 MEQ CR-TABS take 1 tab po daily POTASSIUM CHLORIDE 77764800177 No Longer Active Harinder Hernandez DO Active PREDNISONE 20 MG TAB 1 TID x 2 days, then 1 BID x 3 days, then 1 Daily x 3 days, then stop PREDNISONE 63088094740 No Longer Active Jillina Frazell [employer] Active LEVAQUIN 500 MG TAB 1 tablet by mouth daily LEVOFLOXACIN 48234372324 No Longer Active Jillina Frazell [employer] Active NEURONTIN 300 MG CAP 1 cap by mouth three times daily for restless leg 06/22 GABAPENTIN 19848351372 No Longer Active Harinder Hernandez DO Active BENZONATATE 100 MG CAPS 1 cap po TID PRN BENZONATATE 44683193956 No Longer Active Harinder Hernandez DO Active MONTELUKAST SODIUM 10 MG TABS 1 tab po in the evening MONTELUKAST SODIUM 31812095628 No Longer Active Harinder Hernandez DO Active MUPIROCIN 2 % OINT apply to affected area BID x 14 days MUPIROCIN 00446809234 No Longer Active Harinder Hernandez DO Active TYLENOL EXTRA STRENGTH 500 MG TABS as needed ACETAMINOPHEN 99403721782 No Longer Active Harinder Hernandez DO Active PREDNISONE 10 MG TABS 1 tab po daily PREDNISONE 51756290957 No Longer Active Harinder Hernandez DO Active PREDNISONE 20 MG TAB 2 tabs daily for 4 days, 1 tab daily for 4 days, 1/2 tab daily for 4 days PREDNISONE 80203553362 No Longer Active Harinder Hernandez DO Active AZITHROMYCIN 250 MG TABS 2 po qd x 1 day, then 1 po qd x 4 days AZITHROMYCIN 62418981134 No Longer Active Harinder Hernandez DO Active PREDNISONE 20 MG TAB 3 tabs today, then 1 tab twice daily for 3 day, then one daily for three days PREDNISONE 43819117712 No Longer Active Harinder Hernandez DO Active NIFEDIAC CC 30 MG [id number] 1 tablet daily for raynaud's syndrome NIFEDIPINE 75040078473 No Longer Active Tawnya Pardo MA Active AMBIEN 10 MG TAB 1/2 tab by mouth at bedtime as needed for sleep ZOLPIDEM TARTRATE 66006203177 Active Ciera Pimentel Active CLONAZEPAM 1 MG TABS 1 tablet at bedtime for insomnia and restless legs 09/14 CLONAZEPAM 82552843308 Active Harinder Hernandez DO Active CLONAZEPAM 0.5 MG TABS 1 tab po daily CLONAZEPAM 99605479487 No Longer Active Harinder Hernandez DO Active PREDNISONE 10 MG TAB 1 tablet daily for COPD PREDNISONE 99452695935 Active Ciera Pimentel Active PROAIR HFA 108 (90 BASE) MCG/ACT AERS 2 puffs four times a day as needed 2012 ALBUTEROL SULFATE 56438347782 Active Harinder Hernandez DO Active FLOVENT HFA 110 MCG/ACT AERO 2 puffs inhaled b.i.d. FLUTICASONE PROPIONATE HFA 27870963629 Active Kortney Mccain Active ACIPHEX 20 MG TBEC 1 tab po daily RABEPRAZOLE SODIUM 17608911842 Active Kaylah Newberry Active CLONAZEPAM 0.5 MG TABS 1 tab po daily CLONAZEPAM 0.5 MG TABS 572664 CLONAZEPAM Inactive PREDNISONE 20 MG TAB 3 tabs today, then 1 tab twice daily for 3 day, then one daily for three days PREDNISONE 20 MG TAB 635788 PREDNISONE Inactive PREDNISONE 20 MG TAB 2 tabs daily for 4 days, 1 tab daily for 4 days, 1/2 tab daily for 4 days PREDNISONE 20 MG TAB 077487 PREDNISONE Inactive PREDNISONE 10 MG TABS 1 tab po daily PREDNISONE 10 MG TABS 940301 PREDNISONE Inactive TYLENOL EXTRA STRENGTH 500 MG TABS as needed TYLENOL EXTRA STRENGTH 500 MG TABS 033498 ACETAMINOPHEN Inactive MUPIROCIN 2 % OINT apply to affected area BID x 14 days MUPIROCIN 2 % OINT 249952 MUPIROCIN Inactive MONTELUKAST SODIUM 10 MG TABS 1 tab po in the evening MONTELUKAST SODIUM 10 MG TABS 20010818 MONTELUKAST SODIUM Inactive BENZONATATE 100 MG CAPS 1 cap po TID PRN BENZONATATE 100 MG CAPS 982696 BENZONATATE Inactive NEURONTIN 300 MG CAP 1 cap by mouth three times daily for restless leg 06/22 NEURONTIN 300 MG CAP 193307 GABAPENTIN Inactive LEVAQUIN 500 MG TAB 1 tablet by mouth daily LEVAQUIN 500 MG TAB 916569 LEVOFLOXACIN Inactive PREDNISONE 20 MG TAB 1 TID x 2 days, then 1 BID x 3 days, then 1 Daily x 3 days, then stop PREDNISONE 20 MG TAB 256099 PREDNISONE Inactive POTASSIUM CHLORIDE ER 10 MEQ CR-TABS take 1 tab po daily POTASSIUM CHLORIDE ER 10 MEQ CR-TABS POTASSIUM CHLORIDE Inactive PREDNISONE 20 MG TAB 1 tab twice daily for 3 day, then one daily for three days PREDNISONE 20 MG TAB 158968 PREDNISONE Inactive TESSALON PERLES 100 MG CAP 1 to 2 tablets by mouth 3 times daily as needed for cough TESSALON PERLES 100 MG CAP 484368 BENZONATATE Inactive POTASSIUM CHLORIDE CR 10 MEQ CPCR 1 capsule by mouth daily 02/14 POTASSIUM CHLORIDE CR 10 MEQ CPCR POTASSIUM CHLORIDE Inactive NITROSTAT 0.4 MG SUBL 1 tab under tongueas needed for chest pain ( may take 3 total, 5 min apart, then call 911) NITROSTAT 0.4 MG SUBL 862780 NITROGLYCERIN Inactive LOVASTATIN 40 MG TABS 1 pill by mouth nightly for cholesterol LOVASTATIN 40 MG TABS 736862 LOVASTATIN Inactive CEFDINIR 300 MG ORAL CAPS take 1 cap po bid x 10 days CEFDINIR 300 MG ORAL CAPS 137634 CEFDINIR Inactive ACEBUTOLOL HCL 200 MG CAPS 1 cap in the morning and 2 caps in the evening ACEBUTOLOL HCL 200 MG CAPS 002132 ACEBUTOLOL HCL Inactive VENTOLIN HFA 108 (90 BASE) MCG/ACT AERS 2 -4 puffs four times a day PRN 2013 VENTOLIN HFA 108 (90 BASE) MCG/ACT AERS ALBUTEROL SULFATE Inactive LEVAQUIN 500 MG ORAL TABS Take 1 tab po daily x 8 days LEVAQUIN 500 MG ORAL TABS 589261 LEVOFLOXACIN Inactive PREDNISONE 20 MG TAB 2 tabs daily for 4 days, 1 tab daily for 4 days, 1/2 tab daily for 4 days PREDNISONE 20 MG TAB 605629 PREDNISONE Inactive LOVASTATIN 40 MG ORAL TABS Take 1 tab po every hs LOVASTATIN 40 MG ORAL TABS 588760 LOVASTATIN Inactive DILAUDID 2 MG ORAL TABS Take 1/2 tab po every 4 hours as needed for pain 2014 DILAUDID 2 MG ORAL TABS 433808 HYDROMORPHONE HCL Inactive AMITRIPTYLINE HCL 25 MG ORAL TABS 1 q hs prn AMITRIPTYLINE HCL 25 MG ORAL TABS 085628 AMITRIPTYLINE HCL Inactive MECLIZINE HCL 25 MG TAB 1 tablet three times daily for 3 days, then 1/2 tab three times daily for 3 days. MECLIZINE HCL 25 MG TAB 959022 MECLIZINE HCL Inactive AMLODIPINE BESYLATE 5 MG ORAL TABS Take 1 tab po daily AMLODIPINE BESYLATE 5 MG ORAL TABS 837511 AMLODIPINE BESYLATE Inactive TOPIRAMATE 25 MG TABS 1 tab po BID TOPIRAMATE 25 MG TABS 955103 TOPIRAMATE Inactive PREDNISONE 20 MG TAB 1 tablet twice daily for 2 days, then 1 tablet once daily for 2 days PREDNISONE 20 MG TAB 300981 PREDNISONE Inactive PREDNISONE 20 MG TAB 1 tab twice daily for 3 day, then one daily for three days PREDNISONE 20 MG TAB 215717 PREDNISONE Inactive NIFEDIPINE ER 30 MG ORAL [id number] 1 daily NIFEDIPINE ER 30 MG ORAL [id number] NIFEDIPINE Inactive AMLODIPINE BESYLATE 5 MG TABS 1 tablet by mouth daily AMLODIPINE BESYLATE 5 MG TABS 889195 AMLODIPINE BESYLATE Inactive AZITHROMYCIN 250 MG TABS 2 po qd x 1 day, then 1 po qd x 4 days AZITHROMYCIN 250 MG TABS 8199525 AZITHROMYCIN Inactive AZITHROMYCIN 250 MG TABS 2 po qd x 1 day, then 1 po qd x 4 days AZITHROMYCIN 250 MG TABS 8074601 AZITHROMYCIN Inactive PREDNISONE 20 MG TAB 2 po qd x 5 days PREDNISONE 20 MG TAB 851061 PREDNISONE Inactive Vital Signs Date Name Value [...] Lab Report: Basic Metabolic Panel - Chemistry blood glucose 87 mg/dL 65-110 calcium, serum 8.5 mg/dL 8.5-10.1 urea nitrogen, blood 8 mg/dL 7-18 creatinine, serum 0.82 mg/dL 0.55-1.30 sodium, serum 137 mmol/L 007-897 5048/01/03 potassium, serum 3.4 mmol/L 3.5-5.2 chloride, serum 102 mmol/L 98-107 carbon dioxide, venous blood 29.2 mmol/L 21.0-32.0 Lab Report: CBC - Hematology mean corpuscular hemoglobin, RBC 32.8 pg 27.0-31.2 mean corpuscular hemoglobin concentration, RBC 34.3 G/DL % 31.8- 35.4 red blood cell distribution width 13.9 % 11.6-14.8 platelet count 182 10^3/MM^3 10*3/mm3 357-079 3865/08/08 leukocyte count, blood 5.6 10^3/MM^3 10*3/mm3 4.6-10.2 [...] 0.40 mg/dL 0.00-1.00 sodium, serum 142 mmol/L 816-717 1447/08/08 LDL cholesterol, serum 96 mg/dL 0-130 HDL [...] 10.0-20.0 Encounters Code Encounter Date Provider Facility CPT-03602 Level 3 Est. Patient 11:51:58 CDT Harinder Hernandez [facility] CPT-49797 Level 3 Est. Patient 11:30:05 CDT Harinder Hernandez [facility] CPT-30840 Level 4 Est. Patient 10:19:23 CDT Harinder Hernadnez [facility] CPT-03378 Level 3 Est. Patient 09:58:58 CDT Harinder Cr [facility] CPT-38437 Level 3 Est. Patient 12:37:21 CDT Harinder Cr [facility] CPT-46683 Level 3 Est. Patient 18:37:17 CDT Harinder Cr [facility] CPT-86660 Level 4 Est. Patient 11:15:54 CDT Nettie Newberry [facility] CPT-43864 Level 3 Est. Patient 16:42:24 CDT Harinder Cr [facility] CPT-51371 Level 3 Est. Patient 15:03:36 CDT Harinder Cr [facility] CPT-52579 Level 3 Est. Patient 15:03:20 CDT Harinder Cr [facility] CPT-06226 Level 3 Est. Patient 12:14:34 CDT Harinder Cr [facility] CPT-96177 Level 3 Est. Patient 13:47:15 CDT Harinder Cr [facility] CPT-72122 Level 3 Est. Patient 14:08:24 CDT Harinder Cr [facility] CPT-15709 Level 3 Est. Patient 10:07:15 CDT Harinder Cr [facility] CPT-77474 Level 3 Est. Patient 10:06:59 CDT Harinder Cr [facility] CPT-85314 Level 3 Est. Patient 15:53:29 CDT Jae Morgan MD [facility] CPT-28249 Level 3 Est. Patient 17:19:04 CDT Harinder Cr [facility] CPT-83500 Level 3 Est. Patient 11:13:01 CDT Harinder Hernandez [facility] CPT-79007 Level 3 Est. Patient 09:03:58 CDT Harinder Cr [facility] CPT-90723 Level 3 Est. Patient 14:46:45 TALENT SCOUT Harinder Hernandez [facility] CPT-88259 Level 3 Est. Patient 09:35:49 TALENT SCOUT Harinder Shaye David [facility] CPT-83615 Level 3 Est. Patient 09:29:37 TALENT SCOUT Harinder Cr [facility] CPT-48390 Level 3 Est. Patient 15:51:07 CDT Harinder Hernandez [facility] CPT-09598 Level 3 Est. Patient 18:13:13 CDT Harinder Cr [facility] CPT-41878 Level 3 Est. Patient 10:44:19 CDT Harinder Cr [facility] CPT-28349 Level 4 Est. Patient 10:07:19 TALENT SCOUT Harinder Cr [facility] CPT-93295 Level 3 Est. Patient 15:59:32 TALENT SCOUT Harinder Cr [facility] Procedures Code Procedure Name Date Entry Date Standard Description CPT-39447 Hip, complete, 2-3 views - XRAY USE ONLY 10:28:40 CDT CPT-48710 BMP - LAB USE ONLY 16:45:09 TALENT SCOUT CPT-70532 Port a cath flush 12:00:13 TALENT SCOUT CPT-TCMM Transitional Care Mgmt-Moderate 11:20:16 TALENT SCOUT CPT-65729 First Vx - Ix admin for Medicare patients 17:35:15 CDT CPT-76330 Fluzone Preservative Free Intramuscular Suspension 17:35 :15 CDT CPT-26693 Microalbumin - LAB USE ONLY 11:52:05 CDT CPT-TCMM Transitional Care Mgmt-Moderate 11:33:57 CDT CPT-79823 No Charge Offi Visit 14:11:29 CDT CPT-14298 Magnesium - LAB USE ONLY 10:45:44 CDT CPT-00057 Lipid - LAB USE ONLY 10:45:44 CDT CPT-77008 CBC - LAB USE ONLY 10:45:44 CDT CPT-65923 Venipuncture Draw Fee 10:45:43 CDT CPT-65628 Venipuncture Draw Fee 18:21:27 CDT CPT-JTINJ Asp/Joint Injection 18:38:04 CDT CPT-99110 Immunization Each Additional Inj 17:38:04 CDT CPT-87144 Immunization Single Admin 17:38:04 CDT CPT-68431 Prevnar 13 17:38:04 CDT CPT-52801 Fluzone Quadrivalent preservative free (>=3yrs.) 17:38: 04 CDT CPT-10497 No Charge Offi Visit 11:14:03 CDT CPT-00185 Chest 2V Frontal and Lat 14:00:18 CDT CPT-OV Office Visit 16:10:28 CDT CPT-JTINJ Asp/Joint Injection 09:03:57 CDT CPT-Cryo Cryotherapy 09:35:49 TALENT SCOUT CPT-JTINJ Asp/Joint Injection 09:34:45 TALENT SCOUT CPT-J2930 Solu Medrol 125 mg (Methyl Prednisolone Sodium Succinate) 20:37:27 CDT CPT-78552 Abx/Therapy Injection 20:37:27 CDT CPT-52777 Port a cath flush 08:15:51 CDT CPT-29172 Port a cath flush 09:54:16 CDT CPT-08045 Port a cath flush 09:38:02 CDT CPT-45093 Port a cath flush 11:00:27 TALENT SCOUT
--- OUTSIDE RECORDS SUMMARY | 2017-12-29 05:28 | XMS REPORT | Clinical Summary ---
Author Author Admin, QIE Organization [facility] Address Unknown Phone Unavailable Allergies, Adverse [...] MEQ CPCR 1 capsule BID POTASSIUM CHLORIDE 48665071566 Active Kortney Mccain Active FLUOXETINE HCL 10 MG ORAL CAPS 1 po qd for depression/anxiety FLUOXETINE HCL 98784631301 Active Harinder Hernandez DO Active VOLTAREN 1 % GEL apply q 6-8 hour to left arm as needed for pain DICLOFENAC SODIUM 84420206687 Active Harinder Hernandez DO Active LASIX 20 MG TAB 1 tablet by mouth every morning FUROSEMIDE 79944583469 Prince Mccain Active POTASSIUM CHLORIDE 20 MEQ ORAL PACK 1 tab po BID POTASSIUM CHLORIDE 46019739070 Prince Mccain Active ALBUTEROL SULFATE 0.083 % NEBU SOLN 1 vial neb q 4hrs for severe asthma. 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 FLUTICASONE PROPIONATE HFA 43748235344 Active Harinder Hernandez DO Active EPIPEN 2-BRUNA 0.3 MG/0.3ML INJ SOAJ 1 INJ NEEDED EPINEPHRINE 50031755548 Active Harinder Hernandez DO Active PREDNISONE 20 MG TAB 1 tab twice daily for 3 day, then one daily for three days PREDNISONE 67680122105 No Longer Active Harinder Hernandez DO Active PREDNISONE 20 MG TAB 1 tablet twice daily for 2 days, then 1 tablet once daily for 2 days PREDNISONE 46612871892 No Longer Active Harinder Hernandez DO Active ASMANEX 120 METERED DOSES 220 MCG/INH INH AEPB 2 puffs orally twice daily MOMETASONE FUROATE 68751229431 Active Jeri Sosa RPT,RMA Active TOPIRAMATE 25 MG TABS 1 tab po BID TOPIRAMATE 13912467898 No Longer Active Nettie Newberry APRN Active AMLODIPINE BESYLATE 5 MG ORAL TABS Take 1 tab po daily AMLODIPINE BESYLATE 77527390343 No Longer Active Nettie Newberry APRN Active MECLIZINE HCL 25 MG TAB 1 tablet three times daily for 3 days, then 1/2 tab three times daily for 3 days. MECLIZINE HCL 88477994064 No Longer Active Nettie Newberry APRN Active AMITRIPTYLINE HCL 25 MG ORAL TABS 1 q hs prn AMITRIPTYLINE HCL 78488781628 No Longer Active Nettie Newberry APRN Active DILAUDID 2 MG ORAL TABS Take 1/2 tab po every 4 hours as needed for pain 2014 HYDROMORPHONE HCL 54850347289 No Longer Active Nettie Newberry APRN Active CLOPIDOGREL BISULFATE 75 MG ORAL TABS 1 tab by mouth once daily CLOPIDOGREL BISULFATE 16207585094 Active Harinder Hernandez DO Active ATORVASTATIN CALCIUM 10 MG ORAL TABS 1 at bedtime ATORVASTATIN CALCIUM 83651248595 Active Tawnya Pardo MA Active LOVASTATIN 40 MG ORAL TABS Take 1 tab po every hs LOVASTATIN 40783198648 No Longer Active Harinder Hernandez DO Active PREDNISONE 20 MG TAB 2 tabs daily for 4 days, 1 tab daily for 4 days, 1/2 tab daily for 4 days PREDNISONE 59788007525 No Longer Active Harinder Hernnadez DO Active LEVAQUIN 500 MG ORAL TABS Take 1 tab po daily x 8 days LEVOFLOXACIN 20952099435 No Longer Active Harinder Hernandez DO Active VENTOLIN HFA 108 (90 BASE) MCG/ACT AERS 2 -4 puffs four times a day PRN 2013 ALBUTEROL SULFATE 31458600701 No Longer Active Jeri Sosa RPT,RMA Active ACEBUTOLOL HCL 200 MG CAPS 1 cap in the morning and 2 caps in the evening ACEBUTOLOL HCL 40156936150 No Longer Active Harinder Hernandez DO Active CEFDINIR 300 MG ORAL CAPS take 1 cap po bid x 10 days CEFDINIR 73534368903 No Longer Active Harinder Hernandez DO Active LOVASTATIN 40 MG TABS 1 pill by mouth nightly for cholesterol LOVASTATIN 06302851686 No Longer Active Nettie Newberry APRN Active NITROSTAT 0.4 MG SUBL 1 tab under tongueas needed for chest pain ( may take 3 total, 5 min apart, then call 911) NITROGLYCERIN 68423468724 No Longer Active Nettie Newberry APRN Active POTASSIUM CHLORIDE CR 10 MEQ CPCR 1 capsule by mouth daily 02/14 POTASSIUM CHLORIDE 18796053572 No Longer Active Nettie Newberry APRN Active TESSALON PERLES 100 MG CAP 1 to 2 tablets by mouth 3 times daily as needed for cough BENZONATATE 29008506319 No Longer Active Nettie King MAHENDRA Active THEOPHYLLINE ER 200 MG ORAL [id number] Take 1 tab every 12 hours THEOPHYLLINE 07851469081 Active Kortneyalice Mccain Active PREDNISONE 20 MG TAB 2 po qd x 5 days PREDNISONE 29488256605 No Longer Active Jae Morgan MD Active AZITHROMYCIN 250 MG TABS 2 po qd x 1 day, then 1 po qd x 4 days AZITHROMYCIN 63950053547 No Longer Active Jae Morgan MD Active PREDNISONE 20 MG TAB 1 tab twice daily for 3 day, then one daily for three days PREDNISONE 84219854614 No Longer Active Jae Morgan MD Active SINGULAIR 10 MG TABS 1 pill by mouth every evening for breathing. MONTELUKAST SODIUM 28930666148 Active Tawnya Pardo MA Active TYLENOL 325 MG TAB 3 by mouth q4h as needed ACETAMINOPHEN 36025965990 Active Harinder Hernandez DO Active POTASSIUM CHLORIDE ER 10 MEQ CR-TABS take 1 tab po daily POTASSIUM CHLORIDE 72397347281 No Longer Active Harinder Hernandez DO Active PREDNISONE 20 MG TAB 1 TID x 2 days, then 1 BID x 3 days, then 1 Daily x 3 days, then stop PREDNISONE 92609588060 No Longer Active Jillkvng Frashai MCCRAY Active LEVAQUIN 500 MG TAB 1 tablet by mouth daily LEVOFLOXACIN 45006603432 No Longer Active Jillina Frazell MAHENDRA Active NEURONTIN 300 MG CAP 1 cap by mouth three times daily for restless leg 06/22 GABAPENTIN 28258188611 No Longer Active Harinder Hernandez DO Active BENZONATATE 100 MG CAPS 1 cap po TID PRN BENZONATATE 42912485562 No Longer Active Harinder Hernandez DO Active MONTELUKAST SODIUM 10 MG TABS 1 tab po in the evening MONTELUKAST SODIUM 15698318166 No Longer Active Harinder Hernandez DO Active MUPIROCIN 2 % OINT apply to affected area BID x 14 days MUPIROCIN 64856841903 No Longer Active Harinder Hernandez DO Active TYLENOL EXTRA STRENGTH 500 MG TABS as needed ACETAMINOPHEN 41447207219 No Longer Active Harinder Hernandez DO Active PREDNISONE 10 MG TABS 1 tab po daily PREDNISONE 86990600862 No Longer Active Harinder Hernandez DO Active PREDNISONE 20 MG TAB 2 tabs daily for 4 days, 1 tab daily for 4 days, 1/2 tab daily for 4 days PREDNISONE 87409149445 No Longer Active Harinder Hernandez DO Active AZITHROMYCIN 250 MG TABS 2 po qd x 1 day, then 1 po qd x 4 days AZITHROMYCIN 23011494706 No Longer Active Harinder Hernandez DO Active PREDNISONE 20 MG TAB 3 tabs today, then 1 tab twice daily for 3 day, then one daily for three days PREDNISONE 47292022113 No Longer Active aHrinder Hernandez DO Active NIFEDIAC CC 30 MG [id number] 1 tablet daily for raynaud's syndrome NIFEDIPINE 11182424668 No Longer Active Tawnya Pardo MA Active AMBIEN 10 MG TAB 1/2 tab by mouth at bedtime as needed for sleep ZOLPIDEM TARTRATE 82115478334 Active Ciera Pimentel Active CLONAZEPAM 1 MG TABS 1 tablet at bedtime for insomnia and restless legs 09/14 CLONAZEPAM 06886391191 Active Harinder Hernandez DO Active CLONAZEPAM 0.5 MG TABS 1 tab po daily CLONAZEPAM 79796497546 No Longer Active Harinder Hernandez DO Active PREDNISONE 10 MG TAB 1 tablet daily for COPD PREDNISONE 84908446608 Active Ciera Pimentel Active PROAIR HFA 108 (90 BASE) MCG/ACT AERS 2 puffs four times a day as needed 2012 ALBUTEROL SULFATE 53522693760 Active Harinder Hernandez DO Active FLOVENT HFA 110 MCG/ACT AERO 2 puffs inhaled b.i.d. FLUTICASONE PROPIONATE HFA 16063554296 Active Kortney Mccain Active ACIPHEX 20 MG TBEC 1 tab po daily RABEPRAZOLE SODIUM 76730574430 Active Kaylah Newberry Active CLONAZEPAM 0.5 MG TABS 1 tab po daily CLONAZEPAM 0.5 MG TABS 981495 CLONAZEPAM Inactive PREDNISONE 20 MG TAB 3 tabs today, then 1 tab twice daily for 3 day, then one daily for three days PREDNISONE 20 MG TAB 623579 PREDNISONE Inactive PREDNISONE 20 MG TAB 2 tabs daily for 4 days, 1 tab daily for 4 days, 1/2 tab daily for 4 days PREDNISONE 20 MG TAB 565522 PREDNISONE Inactive PREDNISONE 10 MG TABS 1 tab po daily PREDNISONE 10 MG TABS 720020 PREDNISONE Inactive TYLENOL EXTRA STRENGTH 500 MG TABS as needed TYLENOL EXTRA STRENGTH 500 MG TABS 420915 ACETAMINOPHEN Inactive MUPIROCIN 2 % OINT apply to affected area BID x 14 days MUPIROCIN 2 % OINT 022360 MUPIROCIN Inactive MONTELUKAST SODIUM 10 MG TABS 1 tab po in the evening MONTELUKAST SODIUM 10 MG TABS 20010818 MONTELUKAST SODIUM Inactive BENZONATATE 100 MG CAPS 1 cap po TID PRN BENZONATATE 100 MG CAPS 497155 BENZONATATE Inactive NEURONTIN 300 MG CAP 1 cap by mouth three times daily for restless leg 06/22 NEURONTIN 300 MG CAP 232716 GABAPENTIN Inactive LEVAQUIN 500 MG TAB 1 tablet by mouth daily LEVAQUIN 500 MG TAB 033345 LEVOFLOXACIN Inactive PREDNISONE 20 MG TAB 1 TID x 2 days, then 1 BID x 3 days, then 1 Daily x 3 days, then stop PREDNISONE 20 MG TAB 894615 PREDNISONE Inactive POTASSIUM CHLORIDE ER 10 MEQ CR-TABS take 1 tab po daily POTASSIUM CHLORIDE ER 10 MEQ CR-TABS POTASSIUM CHLORIDE Inactive PREDNISONE 20 MG TAB 1 tab twice daily for 3 day, then one daily for three days PREDNISONE 20 MG TAB 381658 PREDNISONE Inactive TESSALON PERLES 100 MG CAP 1 to 2 tablets by mouth 3 times daily as needed for cough TESSALON PERLES 100 MG CAP 965444 BENZONATATE Inactive POTASSIUM CHLORIDE CR 10 MEQ CPCR 1 capsule by mouth daily 02/14 POTASSIUM CHLORIDE CR 10 MEQ CPCR POTASSIUM CHLORIDE Inactive NITROSTAT 0.4 MG SUBL 1 tab under tongueas needed for chest pain ( may take 3 total, 5 min apart, then call 911) NITROSTAT 0.4 MG SUBL 487844 NITROGLYCERIN Inactive LOVASTATIN 40 MG TABS 1 pill by mouth nightly for cholesterol LOVASTATIN 40 MG TABS LOVASTATIN Inactive CEFDINIR 300 MG ORAL CAPS take 1 cap po bid x 10 days CEFDINIR 300 MG ORAL CAPS 325874 CEFDINIR Inactive ACEBUTOLOL HCL 200 MG CAPS 1 cap in the morning and 2 caps in the evening ACEBUTOLOL HCL 200 MG CAPS 308318 ACEBUTOLOL HCL Inactive VENTOLIN HFA 108 (90 BASE) MCG/ACT AERS 2 -4 puffs four times a day PRN 2013 VENTOLIN HFA 108 (90 BASE) MCG/ACT AERS ALBUTEROL SULFATE Inactive LEVAQUIN 500 MG ORAL TABS Take 1 tab po daily x 8 days LEVAQUIN 500 MG ORAL TABS 045599 LEVOFLOXACIN Inactive PREDNISONE 20 MG TAB 2 tabs daily for 4 days, 1 tab daily for 4 days, 1/2 tab daily for 4 days PREDNISONE 20 MG TAB 178527 PREDNISONE Inactive LOVASTATIN 40 MG ORAL TABS Take 1 tab po every hs LOVASTATIN 40 MG ORAL TABS 575336 LOVASTATIN Inactive DILAUDID 2 MG ORAL TABS Take 1/2 tab po every 4 hours as needed for pain 2014 DILAUDID 2 MG ORAL TABS 994663 HYDROMORPHONE HCL Inactive AMITRIPTYLINE HCL 25 MG ORAL TABS 1 q hs prn AMITRIPTYLINE HCL 25 MG ORAL TABS 939390 AMITRIPTYLINE HCL Inactive MECLIZINE HCL 25 MG TAB 1 tablet three times daily for 3 days, then 1/2 tab three times daily for 3 days. MECLIZINE HCL 25 MG TAB 763145 MECLIZINE HCL Inactive AMLODIPINE BESYLATE 5 MG ORAL TABS Take 1 tab po daily AMLODIPINE BESYLATE 5 MG ORAL TABS 650219 AMLODIPINE BESYLATE Inactive TOPIRAMATE 25 MG TABS 1 tab po BID TOPIRAMATE 25 MG TABS 830060 TOPIRAMATE Inactive PREDNISONE 20 MG TAB 1 tablet twice daily for 2 days, then 1 tablet once daily for 2 days PREDNISONE 20 MG TAB 171930 PREDNISONE Inactive PREDNISONE 20 MG TAB 1 tab twice daily for 3 day, then one daily for three days PREDNISONE 20 MG TAB 570935 PREDNISONE Inactive NIFEDIPINE ER 30 MG ORAL [id number] 1 daily NIFEDIPINE ER 30 MG ORAL [id number] NIFEDIPINE Inactive AMLODIPINE BESYLATE 5 MG TABS 1 tablet by mouth daily AMLODIPINE BESYLATE 5 MG TABS 957901 AMLODIPINE BESYLATE Inactive AZITHROMYCIN 250 MG TABS 2 po qd x 1 day, then 1 po qd x 4 days AZITHROMYCIN 250 MG TABS 2272321 AZITHROMYCIN Inactive AZITHROMYCIN 250 MG TABS 2 po qd x 1 day, then 1 po qd x 4 days AZITHROMYCIN 250 MG TABS 0201572 AZITHROMYCIN Inactive PREDNISONE 20 MG TAB 2 po qd x 5 days PREDNISONE 20 MG TAB 642773 PREDNISONE Inactive Vital Signs Date Name Value [...] Panel - Chemistry sodium, serum 137 mmol/L 016-850 3734/01/03 potassium, serum 3.4 mmol/L 3.5-5.2 chloride, serum 102 mmol/L 98-107 carbon dioxide, venous blood 29.2 mmol/L 21.0-32.0 blood glucose 87 mg/dL 65-110 calcium, serum 8.5 mg/dL 8.5-10.1 urea nitrogen, blood 8 mg/dL 7-18 creatinine, serum 0.82 mg/dL 0.55-1.30 sodium, serum 140 mmol/L 854-391 8473/07/13 potassium, serum 3.2 mmol/L 3.5-5.2 chloride, serum [...] Magnesium - Chemistry cholesterol, serum 180 mg/dL 106-550 5868/08/08 triglyceride, serum, fasting 92 mg/dL 30-200 HDL cholesterol, serum 66 mg/dL 32-96 LDL cholesterol, serum 96 mg/dL 0-130 sodium, serum 142 mmol/L 071-543 2591/08/08 carbon dioxide, venous blood 27.4 mmol/L 21.0-32.0 [...] 10.0-20.0 Encounters Code Encounter Date Provider Facility CPT-65026 Level 4 Est. Patient 09:15:13 CDT Harinder Cr [facility] CPT-08480 Level 3 Est. Patient 11:51:58 CDT Harinder Cr [facility] CPT-86803 Level 3 Est. Patient 11:30:05 CDT Harinder Cr [facility] CPT-31006 Level 4 Est. Patient 10:19:23 CDT Harinder Cr [facility] CPT-50990 Level 3 Est. Patient 09:58:58 CDT Harinder Cr [facility] CPT-52407 Level 3 Est. Patient 12:37:21 CDT Harinder Cr [facility] CPT-76680 Level 3 Est. Patient 18:37:17 CDT Harinder Cr [facility] CPT-33276 Level 4 Est. Patient 11:15:54 CDT Nettie Newberry [facility] CPT-74877 Level 3 Est. Patient 16:42:24 CDT Harinder Hernandez [facility] CPT-79129 Level 3 Est. Patient 15:03:36 CDT Harinder Hernandez [facility] CPT-90815 Level 3 Est. Patient 15:03:20 CDT Harinder Hernandez [facility] CPT-19172 Level 3 Est. Patient 12:14:34 CDT Harinder Hernandez [facility] CPT-29800 Level 3 Est. Patient 13:47:15 CDT Harinder Hernandez [facility] CPT-01621 Level 3 Est. Patient 14:08:24 CDT Harinder Hernandez [facility] CPT-83455 Level 3 Est. Patient 10:07:15 CDT Harinder Hernandez [facility] CPT-63713 Level 3 Est. Patient 10:06:59 CDT Harinder Hernandez [facility] CPT-92991 Level 3 Est. Patient 15:53:29 CDT Jae Morgan MD [facility] CPT-77925 Level 3 Est. Patient 17:19:04 CDT Harinder Hernandez [facility] CPT-94367 Level 3 Est. Patient 11:13:01 CDT Harinder Hernandez [facility] CPT-18578 Level 3 Est. Patient 09:03:58 CDT Harinder Hernandez [facility] CPT-03692 Level 3 Est. Patient 14:46:45 [employer] Harinder Hernandez [facility] CPT-18882 Level 3 Est. Patient 09:35:49 [employer]ER Harinder Hernandez [facility] CPT-85043 Level 3 Est. Patient 09:29:37 [employer]ICER Harinder Hernandez [facility] CPT-62711 Level 3 Est. Patient 15:51:07 CDT Harinder Hernandez [facility] CPT-00687 Level 3 Est. Patient 18:13:13 CDT Harinder Hernandez [facility] CPT-62756 Level 3 Est. Patient 10:44:19 CDT Harinder Hernandez [facility] CPT-41565 Level 4 Est. Patient 10:07:19 [employer]IEF [employer]CIAL [employer]ICER Harinder Hernandez [facility] CPT-99222 Level 3 Est. Patient 15:59:32 [employer]IEF FIN[employer]CIAL OFFICER Harinder Cr [facility] Procedures Code Procedure Name Date Entry Date Standard Description CPT-09633 Port a cath flush 13:46:05 CDT CPT-97492 Hip, complete, 2-3 views - XRAY USE ONLY 10:28:40 CDT CPT-94916 BMP - LAB USE ONLY 16:45:09 [employer] CPT-64483 Port a cath flush 12:00:13 [employer]IEF [employer]CIAL OFFICER CPT-TCMM Transitional Care Mgmt-Moderate 11:20:16 [employer]IEF [employer]CIAL OFFICER CPT-03845 First Vx - Ix admin for Medicare patients 17:35:15 CDT CPT-51215 Fluzone Preservative Free Intramuscular Suspension 17:35 :15 CDT CPT-95672 Microalbumin - LAB USE ONLY 11:52:05 CDT CPT-TCMM Transitional Care Mgmt-Moderate 11:33:57 CDT CPT-01283 No Charge Offi Visit 14:11:29 CDT CPT-59525 Magnesium - LAB USE ONLY 10:45:44 CDT CPT-57135 Lipid - LAB USE ONLY 10:45:44 CDT CPT-39428 CBC - LAB USE ONLY 10:45:44 CDT CPT-48418 Venipuncture Draw Fee 10:45:43 CDT CPT-44584 Venipuncture Draw Fee 18:21:27 CDT CPT-JTINJ Asp/Joint Injection 18:38:04 CDT CPT-14507 Immunization Each Additional Inj 17:38:04 CDT CPT-12006 Immunization Single Admin 17:38:04 CDT CPT-68906 Prevnar 13 17:38:04 CDT CPT-31431 Fluzone Quadrivalent preservative free (>=3yrs.) 17:38: 04 CDT CPT-77823 No Charge Offi Visit 11:14:03 CDT CPT-27106 Chest 2V Frontal and Lat 14:00:18 CDT CPT-OV Office Visit 16:10:28 CDT CPT-JTINJ Asp/Joint Injection 09:03:57 CDT CPT-Cryo Cryotherapy 09:35:49 [employer]IEF FIN[employer]CIAL OFFICER CPT-JTINJ Asp/Joint Injection 09:34:45 CHIEF FIN[employer]CIAL OFFICER CPT-J2930 Solu Medrol 125 mg (Methyl Prednisolone Sodium Succinate) 20:37:27 CDT CPT-47346 Abx/Therapy Injection 20:37:27 CDT CPT-86997 Port a cath flush 08:15:51 CDT CPT-51666 Port a cath flush 09:54:16 CDT CPT-35238 Port a cath flush 09:38:02 CDT CPT-56642 Port a cath flush 11:00:27 CHIEF FINANCIAL OFFICER
--- OUTSIDE RECORDS SUMMARY | 2017-12-29 05:29 | XMS REPORT | Clinical Summary ---
Author Author Admin, QIE Organization [facility] Address Unknown Phone Unavailable [...] then one daily for three days PREDNISONE [id number] No Longer Active Harinder Hernandez DO Active PREDNISONE 20 MG TAB 1 tablet twice daily for 2 days, then 1 tablet once daily for 2 days PREDNISONE 00950654401 No Longer Active Harinder Hernandez DO Active ASMANEX 120 METERED DOSES 220 MCG/INH INH AEPB 2 puffs orally twice daily MOMETASONE FUROATE 58151824113 Active Jeri Sosa RPT,RMA Active NIFEDIPINE ER 30 MG ORAL [id number] 1 daily NIFEDIPINE 89396202719 Active Tawnya Pardo MA Active TOPIRAMATE 25 MG TABS 1 tab po BID TOPIRAMATE 49984894350 No Longer Active Nettie Newberry APRN Active AMLODIPINE BESYLATE 5 MG ORAL TABS Take 1 tab po daily AMLODIPINE BESYLATE 32483576040 No Longer Active Nettie Newberry APRN Active MECLIZINE HCL 25 MG TAB 1 tablet three times daily for 3 days, then 1/2 tab three times daily for 3 days. MECLIZINE HCL 80829534847 No Longer Active Nettie Newberry APRN Active AMITRIPTYLINE HCL 25 MG ORAL TABS 1 q hs prn AMITRIPTYLINE HCL 53876842515 No Longer Active Nettie Newberry APRN Active DILAUDID 2 MG ORAL TABS Take 1/2 tab po every 4 hours as needed for pain 2014 HYDROMORPHONE HCL 83428705361 No Longer Active Nettie Newberry APRN Active CLOPIDOGREL BISULFATE 75 MG ORAL TABS 1 tab by mouth once daily CLOPIDOGREL BISULFATE 02746464370 Active Tawnya Pardo MA Active ATORVASTATIN CALCIUM 10 MG ORAL TABS 1 at bedtime ATORVASTATIN CALCIUM 32326912626 Active Tawnya Pardo MA Active LOVASTATIN 40 MG ORAL TABS Take 1 tab po every hs LOVASTATIN 17546706251 No Longer Active Harinder Hernandez DO Active PREDNISONE 20 MG TAB 2 tabs daily for 4 days, 1 tab daily for 4 days, 1/2 tab daily for 4 days PREDNISONE 81201322242 No Longer Active Harinder Hernandez DO Active LEVAQUIN 500 MG ORAL TABS Take 1 tab po daily x 8 days LEVOFLOXACIN 11604343624 No Longer Active Harinder Hernandez DO Active VENTOLIN HFA 108 (90 BASE) MCG/ACT AERS 2 -4 puffs four times a day PRN 2013 ALBUTEROL SULFATE 83956335558 No Longer Active Jeri Sosa RPT,RMA Active ACEBUTOLOL HCL 200 MG CAPS 1 cap in the morning and 2 caps in the evening ACEBUTOLOL HCL 98219098359 No Longer Active Harinder Hernandez DO Active CEFDINIR 300 MG ORAL CAPS take 1 cap po bid x 10 days CEFDINIR 31624376719 No Longer Active Harinder Hernandez DO Active LOVASTATIN 40 MG TABS 1 pill by mouth nightly for cholesterol LOVASTATIN 98599488120 No Longer Active Nettie Newberry APRN Active NITROSTAT 0.4 MG SUBL 1 tab under tongueas needed for chest pain ( may take 3 total, 5 min apart, then call 911) NITROGLYCERIN 92729334442 No Longer Active Nettie Newberry APRN Active POTASSIUM CHLORIDE CR 10 MEQ CPCR 1 capsule by mouth daily 02/14 POTASSIUM CHLORIDE 07973448839 No Longer Active Nettie Newberry APRN Active TESSALON PERLES 100 MG CAP 1 to 2 tablets by mouth 3 times daily as needed for cough BENZONATATE 55277872440 No Longer Active Nettie Newberry APRN Active THEOPHYLLINE ER 200 MG ORAL [id number] Take 1 tab every 12 hours THEOPHYLLINE 74150480808 Active Tawnya Pardo MA Active PREDNISONE 20 MG TAB 2 po qd x 5 days PREDNISONE 15551754016 No Longer Active Jae Morgan MD Active AZITHROMYCIN 250 MG TABS 2 po qd x 1 day, then 1 po qd x 4 days AZITHROMYCIN 55443846188 No Longer Active Jae Morgan MD Active PREDNISONE 20 MG TAB 1 tab twice daily for 3 day, then one daily for three days PREDNISONE 59496150410 No Longer Active Jae Morgan MD Active SINGULAIR 10 MG TABS 1 pill by mouth every evening for breathing. MONTELUKAST SODIUM 36019079670 Active Tawnya Pardo MA Active TYLENOL 325 MG TAB 3 by mouth q4h as needed ACETAMINOPHEN 81260385895 Active Harinder Hernandez DO Active POTASSIUM CHLORIDE ER 10 MEQ CR-TABS take 1 tab po daily POTASSIUM CHLORIDE 49365465211 No Longer Active Harinder Hernandez DO Active PREDNISONE 20 MG TAB 1 TID x 2 days, then 1 BID x 3 days, then 1 Daily x 3 days, then stop PREDNISONE 19494717426 No Longer Active Jillina Frazell [employer] Active LEVAQUIN 500 MG TAB 1 tablet by mouth daily LEVOFLOXACIN 60150429971 No Longer Active Jillina Frazell [employer]IST Active NEURONTIN 300 MG CAP 1 cap by mouth three times daily for restless leg 06/22 GABAPENTIN 26681535617 No Longer Active Harinder Hernandez DO Active BENZONATATE 100 MG CAPS 1 cap po TID PRN BENZONATATE 96310002884 No Longer Active Harinder Hernandez DO Active MONTELUKAST SODIUM 10 MG TABS 1 tab po in the evening MONTELUKAST SODIUM 10541897711 No Longer Active Harinder Hernandez DO Active MUPIROCIN 2 % OINT apply to affected area BID x 14 days MUPIROCIN 87948460233 No Longer Active Harinder Hernandez DO Active TYLENOL EXTRA STRENGTH 500 MG TABS as needed ACETAMINOPHEN 62380983363 No Longer Active Harinder Hernandez DO Active PREDNISONE 10 MG TABS 1 tab po daily PREDNISONE 24379215568 No Longer Active Harinder Hernandez DO Active PREDNISONE 20 MG TAB 2 tabs daily for 4 days, 1 tab daily for 4 days, 1/2 tab daily for 4 days PREDNISONE 04120296436 No Longer Active Harinder Hernandez DO Active AZITHROMYCIN 250 MG TABS 2 po qd x 1 day, then 1 po qd x 4 days AZITHROMYCIN 50704864735 No Longer Active Harinder Hernandez DO Active PREDNISONE 20 MG TAB 3 tabs today, then 1 tab twice daily for 3 day, then one daily for three days PREDNISONE 63959303125 No Longer Active Harinder Hernandez DO Active NIFEDIAC CC 30 MG [id number] 1 tablet daily for raynaud's syndrome NIFEDIPINE 46388751144 No Longer Active Tawnya Pardo MA Active AMBIEN 10 MG TAB 1/2 tab by mouth at bedtime as needed for sleep ZOLPIDEM TARTRATE 18502154997 Active Harinder Hernandez DO Active CLONAZEPAM 1 MG TABS 1 tablet at bedtime for insomnia and restless legs 09/14 CLONAZEPAM 53283883518 Active Tawnya Pardo MA Active CLONAZEPAM 0.5 MG TABS 1 tab po daily CLONAZEPAM 91442927450 No Longer Active Harinder Hernandez DO Active PREDNISONE 10 MG TAB 1 tablet daily for COPD PREDNISONE 08809861307 Active Tawnya Pardo MA Active PROAIR HFA 108 (90 BASE) MCG/ACT AERS 2 puffs four times a day as needed 2012 ALBUTEROL SULFATE 19710841556 Active Tawnya Pardo MA Active FLOVENT HFA 110 MCG/ACT AERO 2 puffs inhaled b.i.d. FLUTICASONE PROPIONATE HFA 24070318651 Active Tawnya Pardo MA Active EPIPEN 0.3 MG/0.3ML URIEL DIRECTED EPINEPHRINE Active Jeri Sosa RPT,RMA Active ACIPHEX 20 MG TBEC 1 tab po daily RABEPRAZOLE SODIUM 72524949431 Active Tawnya Pardo MA Active CLONAZEPAM 0.5 MG TABS 1 tab po daily CLONAZEPAM 0.5 MG TABS 766349 CLONAZEPAM Inactive PREDNISONE 20 MG TAB 3 tabs today, then 1 tab twice daily for 3 day, then one daily for three days PREDNISONE 20 MG TAB 302264 PREDNISONE Inactive PREDNISONE 20 MG TAB 2 tabs daily for 4 days, 1 tab daily for 4 days, 1/2 tab daily for 4 days PREDNISONE 20 MG TAB 379222 PREDNISONE Inactive PREDNISONE 10 MG TABS 1 tab po daily PREDNISONE 10 MG TABS 094222 PREDNISONE Inactive TYLENOL EXTRA STRENGTH 500 MG TABS as needed TYLENOL EXTRA STRENGTH 500 MG TABS 846545 ACETAMINOPHEN Inactive MUPIROCIN 2 % OINT apply to affected area BID x 14 days MUPIROCIN 2 % OINT 108375 MUPIROCIN Inactive MONTELUKAST SODIUM 10 MG TABS 1 tab po in the evening MONTELUKAST SODIUM 10 MG TABS 336754 MONTELUKAST SODIUM Inactive BENZONATATE 100 MG CAPS 1 cap po TID PRN BENZONATATE 100 MG CAPS 103925 BENZONATATE Inactive NEURONTIN 300 MG CAP 1 cap by mouth three times daily for restless leg 06/22 NEURONTIN 300 MG CAP 863117 GABAPENTIN Inactive LEVAQUIN 500 MG TAB 1 tablet by mouth daily LEVAQUIN 500 MG TAB 447334 LEVOFLOXACIN Inactive PREDNISONE 20 MG TAB 1 TID x 2 days, then 1 BID x 3 days, then 1 Daily x 3 days, then stop PREDNISONE 20 MG TAB 965568 PREDNISONE Inactive POTASSIUM CHLORIDE ER 10 MEQ CR-TABS take 1 tab po daily POTASSIUM CHLORIDE ER 10 MEQ CR-TABS POTASSIUM CHLORIDE Inactive PREDNISONE 20 MG TAB 1 tab twice daily for 3 day, then one daily for three days PREDNISONE 20 MG TAB 290400 PREDNISONE Inactive TESSALON PERLES 100 MG CAP 1 to 2 tablets by mouth 3 times daily as needed for cough TESSALON PERLES 100 MG CAP 383902 BENZONATATE Inactive POTASSIUM CHLORIDE CR 10 MEQ [...] nightly for cholesterol LOVASTATIN 40 MG TABS 457693 LOVASTATIN Inactive CEFDINIR 300 MG ORAL CAPS take 1 cap po bid x 10 days CEFDINIR 300 MG ORAL CAPS 107879 CEFDINIR Inactive ACEBUTOLOL HCL 200 MG CAPS 1 cap in the morning and 2 caps in the evening ACEBUTOLOL HCL 200 MG CAPS 736365 ACEBUTOLOL HCL Inactive VENTOLIN HFA 108 (90 BASE) MCG/ACT AERS 2 -4 puffs four times a day PRN 2013 VENTOLIN HFA 108 (90 BASE) MCG/ACT AERS ALBUTEROL SULFATE Inactive LEVAQUIN 500 MG ORAL TABS Take 1 tab po daily x 8 days LEVAQUIN 500 MG ORAL TABS 528087 LEVOFLOXACIN Inactive PREDNISONE 20 MG TAB 2 tabs daily for 4 days, 1 tab daily for 4 days, 1/2 tab daily for 4 days PREDNISONE 20 MG TAB 583350 PREDNISONE Inactive LOVASTATIN 40 MG ORAL TABS Take 1 tab po every hs LOVASTATIN 40 MG ORAL TABS 337730 LOVASTATIN Inactive DILAUDID 2 MG ORAL TABS Take 1/2 tab po every 4 hours as needed for pain 2014 DILAUDID 2 MG ORAL TABS 126316 HYDROMORPHONE HCL Inactive AMITRIPTYLINE HCL 25 MG ORAL TABS 1 q hs prn AMITRIPTYLINE HCL 25 MG ORAL TABS 082992 AMITRIPTYLINE HCL Inactive MECLIZINE HCL 25 MG TAB 1 tablet three times daily for 3 days, then 1/2 tab three times daily for 3 days. MECLIZINE HCL 25 MG TAB 826978 MECLIZINE HCL Inactive AMLODIPINE BESYLATE 5 MG ORAL TABS Take 1 tab po daily AMLODIPINE BESYLATE 5 MG ORAL TABS 888093 AMLODIPINE BESYLATE Inactive TOPIRAMATE 25 MG TABS 1 tab po BID TOPIRAMATE 25 MG TABS 682041 TOPIRAMATE Inactive PREDNISONE 20 MG TAB 1 tablet twice daily for 2 days, then 1 tablet once daily for 2 days PREDNISONE 20 MG TAB 994967 PREDNISONE Inactive PREDNISONE 20 MG TAB 1 tab twice daily for 3 day, then one daily for three days PREDNISONE 20 MG TAB 436912 PREDNISONE Inactive AZITHROMYCIN 250 MG TABS 2 po qd x 1 day, then 1 po qd x 4 days AZITHROMYCIN 250 MG TABS 6223860 AZITHROMYCIN Inactive AZITHROMYCIN 250 MG TABS 2 po qd x 1 day, then 1 po qd x 4 days AZITHROMYCIN 250 MG TABS 7300730 AZITHROMYCIN Inactive PREDNISONE 20 MG TAB 2 po qd x 5 days PREDNISONE 20 MG TAB 884648 PREDNISONE Inactive Vital Signs Date Name Value [...] Panel - Chemistry sodium, serum 138 mmol/L 929-806 4723/09/24 potassium, serum 3.5 mmol/L 3.5-5.2 chloride, serum [...] Magnesium - Chemistry cholesterol, serum 180 mg/dL 184-138 3766/08/08 triglyceride, serum, fasting 92 mg/dL 30-200 HDL cholesterol, serum 66 mg/dL 32-96 LDL cholesterol, serum 96 mg/dL 0-130 sodium, serum 142 mmol/L 238-844 4193/08/08 carbon dioxide, venous blood 27.4 mmol/L 21.0-32.0 [...] 10.0-20.0 Encounters Code Encounter Date Provider Facility CPT-67314 Level 3 Est. Patient 09:58:58 CDT Harinder Cr [facility] CPT-71742 Level 3 Est. Patient 12:37:21 CDT Harinder Shaye [facility] CPT-36155 Level 3 Est. Patient 18:37:17 CDT Harinder Shaye [facility] CPT-21108 Level 4 Est. Patient 11:15:54 CDT Nettie Newberry [facility] CPT-58870 Level 3 Est. Patient 16:42:24 CDT Harinder Cr [facility] CPT-09283 Level 3 Est. Patient 15:03:36 CDT Harinder Cr [facility] CPT-53996 Level 3 Est. Patient 15:03:20 CDT Harinder Cr [facility] CPT-61255 Level 3 Est. Patient 12:14:34 CDT Harinder Shaye [facility] CPT-77509 Level 3 Est. Patient 13:47:15 CDT Harinder Shaye [facility] CPT-97472 Level 3 Est. Patient 14:08:24 CDT Harinder Cr [facility] CPT-95274 Level 3 Est. Patient 10:07:15 CDT Harinder Shaye [facility] CPT-10595 Level 3 Est. Patient 10:06:59 CDT Harinder Cr [facility] CPT-59559 Level 3 Est. Patient 15:53:29 CDT Jae Morgan MD [facility] CPT-64874 Level 3 Est. Patient 17:19:04 CDT Harinder Hernandez [facility] CPT-06584 Level 3 Est. Patient 11:13:01 CDT Harinder Hernandez [facility] CPT-23091 Level 3 Est. Patient 09:03:58 CDT Harinder Hernandez [facility] CPT-97508 Level 3 Est. Patient 14:46:45 [employer]PERVISOR [employer] Harinder Hernandez [facility] CPT-58560 Level 3 Est. Patient 09:35:49 SUPERVISOR [employer] Harinder Hernandez [facility] CPT-73610 Level 3 Est. Patient 09:29:37 SUPERVISOR [employer] Harinder Hernandez [facility] CPT-89704 Level 3 Est. Patient 15:51:07 CDT Harinder Hernandez [facility] CPT-67461 Level 3 Est. Patient 18:13:13 CDT Harinder Cr [facility] CPT-65565 Level 3 Est. Patient 10:44:19 CDT Harinder Hernandez [facility] CPT-40458 Level 4 Est. Patient 10:07:19 SUPERVISOR [employer] Harinder Cr [facility] CPT-82800 Level 3 Est. Patient 15:59:32 SUPERVISOR [employer] Harinder Shaye [facility] Procedures Code Procedure Name Date Entry Date Standard Description CPT-TCMM Transitional Care Mgmt-Moderate 11:33:57 CDT CPT-92739 No Charge Offi Visit 14:11:29 CDT CPT-93777 Magnesium - LAB USE ONLY 10:45:44 CDT CPT-70807 Lipid - LAB USE ONLY 10:45:44 CDT CPT-09312 CBC - LAB USE ONLY 10:45:44 CDT CPT-25973 Venipuncture Draw Fee 10:45:43 CDT CPT-02201 Venipuncture Draw Fee 18:21:27 CDT CPT-JTINJ Asp/Joint Injection 18:38:04 CDT CPT-59512 Immunization Each Additional Inj 17:38:04 CDT CPT-21967 Immunization Single Admin 17:38:04 CDT CPT-56600 Prevnar 13 17:38:04 CDT CPT-82204 Fluzone Quadrivalent preservative free (>=3yrs.) 17:38: 04 CDT CPT-10727 No Charge Offi Visit 11:14:03 CDT CPT-40180 Chest 2V Frontal and Lat 14:00:18 CDT CPT-OV Office Visit 16:10:28 CDT CPT-JTINJ Asp/Joint Injection 09:03:57 CDT CPT-Cryo Cryotherapy 09:35:49 SUPERVISOR [employer] CPT-JTINJ Asp/Joint Injection 09:34:45 SUPERVISOR [employer]END[employer] CPT-J2930 Solu Medrol 125 mg (Methyl Prednisolone Sodium Succinate) 20:37:27 CDT CPT-59776 Abx/Therapy Injection 20:37:27 CDT CPT-29458 Port a cath flush 08:15:51 CDT CPT-18783 Port a cath flush 09:54:16 CDT CPT-20287 Port a cath flush 09:38:02 CDT CPT-28769 Port a cath flush 11:00:27 SUPERVISOR [employer]
--- OUTSIDE RECORDS SUMMARY | 2017-12-29 05:31 | XMS REPORT | Clinical Summary ---
Author Author Admin, QIE Organization [facility] Address Unknown Phone Unavailable Allergies, [...] not elsewhere classified Myocardial Infarction: 410.90 Active Harindre Hernandez DO Acute myocardial infarction, unspecified site, [...] Back pain, lumbar ICD-724.2 Inactive Harinder Shaye Daivd DO Insomnia ICD-780.[address] David [...] then one daily for three days PREDNISONE [id number] No Longer Active Harinder Hernandez DO Active PREDNISONE 20 MG TAB 1 tablet twice daily for 2 days, then 1 tablet once daily for 2 days PREDNISONE 05825741613 No Longer Active Harinder Hernandez DO Active ASMANEX 120 METERED DOSES 220 MCG/INH INH AEPB 2 puffs orally twice daily MOMETASONE FUROATE 31312776195 Active Jeri Sosa RPT,RMA Active NIFEDIPINE ER 30 MG ORAL [id number] 1 daily NIFEDIPINE 12034153629 Active Tawnya Pardo MA Active TOPIRAMATE 25 MG TABS 1 tab po BID TOPIRAMATE 39379175330 No Longer Active Nettie Newberry APRN Active AMLODIPINE BESYLATE 5 MG ORAL TABS Take 1 tab po daily AMLODIPINE BESYLATE 97069363196 No Longer Active Nettie Newberry APRN Active MECLIZINE HCL 25 MG TAB 1 tablet three times daily for 3 days, then 1/2 tab three times daily for 3 days. MECLIZINE HCL 99814691183 No Longer Active Nettie Newberry APRN Active AMITRIPTYLINE HCL 25 MG ORAL TABS 1 q hs prn AMITRIPTYLINE HCL 38607663675 No Longer Active Nettie Newberry APRN Active DILAUDID 2 MG ORAL TABS Take 1/2 tab po every 4 hours as needed for pain 2014 HYDROMORPHONE HCL 35567390496 No Longer Active Nettie Newberry APRN Active CLOPIDOGREL BISULFATE 75 MG ORAL TABS 1 tab by mouth once daily CLOPIDOGREL BISULFATE 98753210936 Active Jeri Sosa RPT,RMA Active ATORVASTATIN CALCIUM 10 MG ORAL TABS 1 at bedtime ATORVASTATIN CALCIUM 25973238273 Active Jeri Sosa RPT,RMA Active LOVASTATIN 40 MG ORAL TABS Take 1 tab po every hs LOVASTATIN 07466077464 No Longer Active Harinder Hernandez DO Active PREDNISONE 20 MG TAB 2 tabs daily for 4 days, 1 tab daily for 4 days, 1/2 tab daily for 4 days PREDNISONE 53415746429 No Longer Active Harinder Hernandez DO Active LEVAQUIN 500 MG ORAL TABS Take 1 tab po daily x 8 days LEVOFLOXACIN 30374407829 No Longer Active Harinder Hernandez DO Active VENTOLIN HFA 108 (90 BASE) MCG/ACT AERS 2 -4 puffs four times a day PRN 2013 ALBUTEROL SULFATE 32233217308 No Longer Active Jeri Sosa RPT,RMA Active ACEBUTOLOL HCL 200 MG CAPS 1 cap in the morning and 2 caps in the evening ACEBUTOLOL HCL 58803998112 No Longer Active Harinder Hernandez DO Active CEFDINIR 300 MG ORAL CAPS take 1 cap po bid x 10 days CEFDINIR 85067584627 No Longer Active Harinder Hernandez DO Active LOVASTATIN 40 MG TABS 1 pill by mouth nightly for cholesterol LOVASTATIN 14907810057 No Longer Active Nettie Newberry APRN Active NITROSTAT 0.4 MG SUBL 1 tab under tongueas needed for chest pain ( may take 3 total, 5 min apart, then call 911) NITROGLYCERIN 59751896158 No Longer Active Nettie Newberry APRN Active POTASSIUM CHLORIDE CR 10 MEQ CPCR 1 capsule by mouth daily 02/14 POTASSIUM CHLORIDE 79811892239 No Longer Active Nettie Newberry APRN Active TESSALON PERLES 100 MG CAP 1 to 2 tablets by mouth 3 times daily as needed for cough BENZONATATE 11209225936 No Longer Active Nettie Newberry APRN Active THEOPHYLLINE ER 200 MG ORAL [id number] Take 1 tab every 12 hours THEOPHYLLINE 81138239915 Active Jeri Sosa RPT,RMA Active PREDNISONE 20 MG TAB 2 po qd x 5 days PREDNISONE 97545135465 No Longer Active Jae Morgan MD Active AZITHROMYCIN 250 MG TABS 2 po qd x 1 day, then 1 po qd x 4 days AZITHROMYCIN 50238434261 No Longer Active Jae Morgan MD Active PREDNISONE 20 MG TAB 1 tab twice daily for 3 day, then one daily for three days PREDNISONE 71896772323 No Longer Active Jae Morgan MD Active SINGULAIR 10 MG TABS 1 pill by mouth every evening for breathing. MONTELUKAST SODIUM 35588098045 Active Tawnya Pardo MA Active TYLENOL 325 MG TAB 3 by mouth q4h as needed ACETAMINOPHEN 97122519652 Active Harinder Hernandez DO Active POTASSIUM CHLORIDE ER 10 MEQ CR-TABS take 1 tab po daily POTASSIUM CHLORIDE 50524129408 No Longer Active Harinder Hernandez DO Active PREDNISONE 20 MG TAB 1 TID x 2 days, then 1 BID x 3 days, then 1 Daily x 3 days, then stop PREDNISONE 58125421347 No Longer Active Jillina Frazell [employer] W[employer]ER TENDER Active LEVAQUIN 500 MG TAB 1 tablet by mouth daily LEVOFLOXACIN 44779990112 No Longer Active Jillina Frazell [employer] WINDER TENDER Active NEURONTIN 300 MG CAP 1 cap by mouth three times daily for restless leg 06/22 GABAPENTIN 07512616624 No Longer Active Harinder Hernandez DO Active BENZONATATE 100 MG CAPS 1 cap po TID PRN BENZONATATE 83569650104 No Longer Active Harinder Hernandez DO Active MONTELUKAST SODIUM 10 MG TABS 1 tab po in the evening MONTELUKAST SODIUM 83452545680 No Longer Active Harinder Hernandez DO Active MUPIROCIN 2 % OINT apply to affected area BID x 14 days MUPIROCIN 46669959443 No Longer Active Harinder Hernandez DO Active TYLENOL EXTRA STRENGTH 500 MG TABS as needed ACETAMINOPHEN 96983189572 No Longer Active Harinder Hernandez DO Active PREDNISONE 10 MG TABS 1 tab po daily PREDNISONE 76156064061 No Longer Active Harinder Hernandez DO Active PREDNISONE 20 MG TAB 2 tabs daily for 4 days, 1 tab daily for 4 days, 1/2 tab daily for 4 days PREDNISONE 26082773820 No Longer Active Harinder Hernandez DO Active AZITHROMYCIN 250 MG TABS 2 po qd x 1 day, then 1 po qd x 4 days AZITHROMYCIN 15276940287 No Longer Active Harinder Hernandez DO Active PREDNISONE 20 MG TAB 3 tabs today, then 1 tab twice daily for 3 day, then one daily for three days PREDNISONE 84765722992 No Longer Active Harinder Hernandez DO Active NIFEDIAC CC 30 MG [id number] 1 tablet daily for raynaud's syndrome NIFEDIPINE 79709259000 No Longer Active Tawnya Pardo MA Active AMBIEN 10 MG TAB 1/2 tab by mouth at bedtime as needed for sleep ZOLPIDEM TARTRATE 56904094583 Active Harinder Hernandez DO Active CLONAZEPAM 1 MG TABS 1 tablet at bedtime for insomnia and restless legs 09/14 CLONAZEPAM 82964003282 Active Jeri Sosa RPT,RMA Active CLONAZEPAM 0.5 MG TABS 1 tab po daily CLONAZEPAM 17281642716 No Longer Active Harinder Hernandez DO Active PREDNISONE 10 MG TAB 1 tablet daily for COPD PREDNISONE 60467720198 Active Tawnya Pardo MA Active PROAIR HFA 108 (90 BASE) MCG/ACT AERS 2 puffs four times a day as needed 2012 ALBUTEROL SULFATE 86808559852 Active Tawnya Pardo MA Active FLOVENT HFA 110 MCG/ACT AERO 2 puffs inhaled b.i.d. FLUTICASONE PROPIONATE HFA 83569350977 Active Tawnya Pardo MA Active EPIPEN 0.3 MG/0.3ML URIEL DIRECTED EPINEPHRINE Active Jeri Sosa RPT,RMA Active ACIPHEX 20 MG TBEC 1 tab po daily RABEPRAZOLE SODIUM 44004832776 Active Tawnya Pardo MA Active CLONAZEPAM 0.5 MG TABS 1 tab po daily CLONAZEPAM 0.5 MG TABS 344774 CLONAZEPAM Inactive PREDNISONE 20 MG TAB 3 tabs today, then 1 tab twice daily for 3 day, then one daily for three days PREDNISONE 20 MG TAB 934637 PREDNISONE Inactive PREDNISONE 20 MG TAB 2 tabs daily for 4 days, 1 tab daily for 4 days, 1/2 tab daily for 4 days PREDNISONE 20 MG TAB 210634 PREDNISONE Inactive PREDNISONE 10 MG TABS 1 tab po daily PREDNISONE 10 MG TABS 433614 PREDNISONE Inactive TYLENOL EXTRA STRENGTH 500 MG TABS as needed TYLENOL EXTRA STRENGTH 500 MG TABS 089959 ACETAMINOPHEN Inactive MUPIROCIN 2 % OINT apply to affected area BID x 14 days MUPIROCIN 2 % OINT 640141 MUPIROCIN Inactive MONTELUKAST SODIUM 10 MG TABS 1 tab po in the evening MONTELUKAST SODIUM 10 MG TABS 635522 MONTELUKAST SODIUM Inactive BENZONATATE 100 MG CAPS 1 cap po TID PRN BENZONATATE 100 MG CAPS 511885 BENZONATATE Inactive NEURONTIN 300 MG CAP 1 cap by mouth three times daily for restless leg 06/22 NEURONTIN 300 MG CAP 778642 GABAPENTIN Inactive LEVAQUIN 500 MG TAB 1 tablet by mouth daily LEVAQUIN 500 MG TAB 136818 LEVOFLOXACIN Inactive PREDNISONE 20 MG TAB 1 TID x 2 days, then 1 BID x 3 days, then 1 Daily x 3 days, then stop PREDNISONE 20 MG TAB 967027 PREDNISONE Inactive POTASSIUM CHLORIDE ER 10 MEQ CR-TABS take 1 tab po daily POTASSIUM CHLORIDE ER 10 MEQ CR-TABS POTASSIUM CHLORIDE Inactive PREDNISONE 20 MG TAB 1 tab twice daily for 3 day, then one daily for three days PREDNISONE 20 MG TAB 192591 PREDNISONE Inactive TESSALON PERLES 100 MG CAP 1 to 2 tablets by mouth 3 times daily as needed for cough TESSALON PERLES 100 MG CAP 293559 BENZONATATE Inactive POTASSIUM CHLORIDE CR 10 MEQ [...] nightly for cholesterol LOVASTATIN 40 MG TABS 362268 LOVASTATIN Inactive CEFDINIR 300 MG ORAL CAPS take 1 cap po bid x 10 days CEFDINIR 300 MG ORAL CAPS 120027 CEFDINIR Inactive ACEBUTOLOL HCL 200 MG CAPS 1 cap in the morning and 2 caps in the evening ACEBUTOLOL HCL 200 MG CAPS 066886 ACEBUTOLOL HCL Inactive VENTOLIN HFA 108 (90 BASE) MCG/ACT AERS 2 -4 puffs four times a day PRN 2013 VENTOLIN HFA 108 (90 BASE) MCG/ACT AERS ALBUTEROL SULFATE Inactive LEVAQUIN 500 MG ORAL TABS Take 1 tab po daily x 8 days LEVAQUIN 500 MG ORAL TABS 134823 LEVOFLOXACIN Inactive PREDNISONE 20 MG TAB 2 tabs daily for 4 days, 1 tab daily for 4 days, 1/2 tab daily for 4 days PREDNISONE 20 MG TAB 863000 PREDNISONE Inactive LOVASTATIN 40 MG ORAL TABS Take 1 tab po every hs LOVASTATIN 40 MG ORAL TABS 329637 LOVASTATIN Inactive DILAUDID 2 MG ORAL TABS Take 1/2 tab po every 4 hours as needed for pain 2014 DILAUDID 2 MG ORAL TABS 654772 HYDROMORPHONE HCL Inactive AMITRIPTYLINE HCL 25 MG ORAL TABS 1 q hs prn AMITRIPTYLINE HCL 25 MG ORAL TABS 362982 AMITRIPTYLINE HCL Inactive MECLIZINE HCL 25 MG TAB 1 tablet three times daily for 3 days, then 1/2 tab three times daily for 3 days. MECLIZINE HCL 25 MG TAB 054835 MECLIZINE HCL Inactive AMLODIPINE BESYLATE 5 MG ORAL TABS Take 1 tab po daily AMLODIPINE BESYLATE 5 MG ORAL TABS 397062 AMLODIPINE BESYLATE Inactive TOPIRAMATE 25 MG TABS 1 tab po BID TOPIRAMATE 25 MG TABS 638923 TOPIRAMATE Inactive PREDNISONE 20 MG TAB 1 tablet twice daily for 2 days, then 1 tablet once daily for 2 days PREDNISONE 20 MG TAB 340245 PREDNISONE Inactive PREDNISONE 20 MG TAB 1 tab twice daily for 3 day, then one daily for three days PREDNISONE 20 MG TAB 677433 PREDNISONE Inactive AZITHROMYCIN 250 MG TABS 2 po qd x 1 day, then 1 po qd x 4 days AZITHROMYCIN 250 MG TABS 3407179 AZITHROMYCIN Inactive AZITHROMYCIN 250 MG TABS 2 po qd x 1 day, then 1 po qd x 4 days AZITHROMYCIN 250 MG TABS 9627990 AZITHROMYCIN Inactive PREDNISONE 20 MG TAB 2 po qd x 5 days PREDNISONE 20 MG TAB 231277 PREDNISONE Inactive Vital Signs Date Name Value [...] Panel - Chemistry sodium, serum 138 mmol/L 948-516 4305/09/24 potassium, serum 3.5 mmol/L 3.5-5.2 chloride, serum [...] Magnesium - Chemistry cholesterol, serum 180 mg/dL 531-741 3999/08/08 triglyceride, serum, fasting 92 mg/dL 30-200 HDL cholesterol, serum 66 mg/dL 32-96 LDL cholesterol, serum 96 mg/dL 0-130 sodium, serum 142 mmol/L 033-303 1716/08/08 carbon dioxide, venous blood 27.4 mmol/L 21.0-32.0 [...] 10.0-20.0 Encounters Code Encounter Date Provider Facility CPT-63983 Level 3 Est. Patient 09:58:58 CDT Harinder Shaye [facility] CPT-29059 Level 3 Est. Patient 12:37:21 CDT Harinder Cr [facility] CPT-45962 Level 3 Est. Patient 18:37:17 CDT Harinder Cr [facility] CPT-51834 Level 4 Est. Patient 11:15:54 CDT Nettie Newberry [facility] CPT-62502 Level 3 Est. Patient 16:42:24 CDT Harinder Cr [facility] CPT-75315 Level 3 Est. Patient 15:03:36 CDT Harinder Cr [facility] CPT-36042 Level 3 Est. Patient 15:03:20 CDT Harinder Cr [facility] CPT-91664 Level 3 Est. Patient 12:14:34 CDT Harinder Shaye [facility] CPT-40080 Level 3 Est. Patient 13:47:15 CDT Harinder Cr [facility] CPT-63739 Level 3 Est. Patient 14:08:24 CDT Harinder Cr [facility] CPT-50245 Level 3 Est. Patient 10:07:15 CDT Harinder Cr [facility] CPT-04893 Level 3 Est. Patient 10:06:59 CDT Harinder Cr [facility] CPT-32342 Level 3 Est. Patient 15:53:29 CDT Jae Morgan MD [facility] CPT-63564 Level 3 Est. Patient 17:19:04 CDT Harinder Shaye [facility] CPT-76785 Level 3 Est. Patient 11:13:01 CDT [facility] CPT-61416 Level 3 Est. Patient 09:03:58 CDT Harinder [facility] CPT-81080 Level 3 Est. Patient 14:46:45 ENGLISH TUTOR Harinder Shaye [facility] CPT-73843 Level 3 Est. Patient 09:35:49 ENGLISH TUTOR Harinder Shaye [facility] CPT-69917 Level 3 Est. Patient 09:29:37 ENGLISH TUTOR Harinder Shaye [facility] CPT-11224 Level 3 Est. Patient 15:51:07 CDT [facility] CPT-93037 Level 3 Est. Patient 18:13:13 CDT Harinder Cr [facility] CPT-40622 Level 3 Est. Patient 10:44:19 CDT [facility] CPT-93427 Level 4 Est. Patient 10:07:19 ENGLISH TUTOR Harinder Cr [facility] CPT-50336 Level 3 Est. Patient 15:59:32 ENGLISH TUTOR Harinder Cr [facility] Procedures Code Procedure Name Date Entry Date Standard Description CPT-TCMM Transitional Care Mgmt-Moderate 11:33:57 CDT CPT-30083 No Charge Offi Visit 14:11:29 CDT CPT-21639 Magnesium - LAB USE ONLY 10:45:44 CDT CPT-20285 Lipid - LAB USE ONLY 10:45:44 CDT CPT-27315 CBC - LAB USE ONLY 10:45:44 CDT CPT-51710 Venipuncture Draw Fee 10:45:43 CDT CPT-34356 Venipuncture Draw Fee 18:21:27 CDT CPT-JTINJ Asp/Joint Injection 18:38:04 CDT CPT-33609 Immunization Each Additional Inj 17:38:04 CDT CPT-61401 Immunization Single Admin 17:38:04 CDT CPT-01928 Prevnar 13 17:38:04 CDT CPT-46087 Fluzone Quadrivalent preservative free (>=3yrs.) 17:38: 04 CDT CPT-28018 No Charge Offi Visit 11:14:03 CDT CPT-36281 Chest 2V Frontal and Lat 14:00:18 CDT CPT-OV Office Visit 16:10:28 CDT CPT-JTINJ Asp/Joint Injection 09:03:57 CDT CPT-Cryo Cryotherapy 09:35:49 ENGLISH TUTOR CPT-JTINJ Asp/Joint Injection 09:34:45 ENGLISH TUTOR CPT-J2930 Solu Medrol 125 mg (Methyl Prednisolone Sodium Succinate) 20:37:27 CDT CPT-49396 Abx/Therapy Injection 20:37:27 CDT CPT-46079 Port a cath flush 08:15:51 CDT CPT-13999 Port a cath flush 09:54:16 CDT CPT-13594 Port a cath flush 09:38:02 CDT CPT-16583 Port a cath flush 11:00:27 ENGLISH TUTOR
--- OUTSIDE RECORDS SUMMARY | 2017-12-29 05:34 | XMS REPORT | Clinical Summary ---
Author Author Admin, QIE Organization [facility] T[place] Address Unknown Phone Unavailable Allergies, Adverse Reactions, [...] neb q 4hrs PRN Wheezing ALBUTEROL SULFATE [id number] Active Harinder Hernandez DO Active FLOVENT HFA 110 MCG/ACT AERO 2 puffs inhaled b.i.d. FLUTICASONE PROPIONATE HFA 37196345198 Active Harinder Hernandez DO Active POTASSIUM CHLORIDE CR 10 MEQ CPCR 1 capsule by mouth daily POTASSIUM CHLORIDE 20796868572 Active Harinder Hernandez DO Active EPIPEN 2-BRUNA 0.3 MG/0.3ML INJ SOAJ 1 INJ NEEDED EPINEPHRINE 17520904764 Active Tawnya Pardo MA Active PREDNISONE 20 MG TAB 1 tab twice daily for 3 day, then one daily for three days PREDNISONE 08546632657 No Longer Active Harinder Hernandez DO Active PREDNISONE 20 MG TAB 1 tablet twice daily for 2 days, then 1 tablet once daily for 2 days PREDNISONE 78540900456 No Longer Active Harinder Hernandez DO Active ASMANEX 120 METERED DOSES 220 MCG/INH INH AEPB 2 puffs orally twice daily MOMETASONE FUROATE 63634863920 Active Jeri Sosa RPT,RMA Active NIFEDIPINE ER 30 MG ORAL [id number] 1 daily NIFEDIPINE 15854783078 Active Harinder Hernandez DO Active TOPIRAMATE 25 MG TABS 1 tab po BID TOPIRAMATE 49020355465 No Longer Active Nettie Newberry APRN Active AMLODIPINE BESYLATE 5 MG ORAL TABS Take 1 tab po daily AMLODIPINE BESYLATE 92793077133 No Longer Active Nettie Newberry APRN Active MECLIZINE HCL 25 MG TAB 1 tablet three times daily for 3 days, then 1/2 tab three times daily for 3 days. MECLIZINE HCL 08344600284 No Longer Active Nettie Newberry APRN Active AMITRIPTYLINE HCL 25 MG ORAL TABS 1 q hs prn AMITRIPTYLINE HCL 17062028332 No Longer Active Nettie Newberry APRN Active DILAUDID 2 MG ORAL TABS Take 1/2 tab po every 4 hours as needed for pain 2014 HYDROMORPHONE HCL 71303018581 No Longer Active Nettie Newberry APRN Active CLOPIDOGREL BISULFATE 75 MG ORAL TABS 1 tab by mouth once daily CLOPIDOGREL BISULFATE 35416235885 Active Tawnya Pardo MA Active ATORVASTATIN CALCIUM 10 MG ORAL TABS 1 at bedtime ATORVASTATIN CALCIUM 59668606569 Active Tawnya Pardo MA Active LOVASTATIN 40 MG ORAL TABS Take 1 tab po every hs LOVASTATIN 91165466038 No Longer Active Harinder Hernandez DO Active PREDNISONE 20 MG TAB 2 tabs daily for 4 days, 1 tab daily for 4 days, 1/2 tab daily for 4 days PREDNISONE 69810123790 No Longer Active Harinder Hernandez DO Active LEVAQUIN 500 MG ORAL TABS Take 1 tab po daily x 8 days LEVOFLOXACIN 99571033222 No Longer Active Harinder Hernandez DO Active VENTOLIN HFA 108 (90 BASE) MCG/ACT AERS 2 -4 puffs four times a day PRN 2013 ALBUTEROL SULFATE 61248610692 No Longer Active Jeri Sosa RPT,RMA Active ACEBUTOLOL HCL 200 MG CAPS 1 cap in the morning and 2 caps in the evening ACEBUTOLOL HCL 17844604221 No Longer Active Harinder Hernandez DO Active CEFDINIR 300 MG ORAL CAPS take 1 cap po bid x 10 days CEFDINIR 97451841343 No Longer Active Harinder Hernandez DO Active LOVASTATIN 40 MG TABS 1 pill by mouth nightly for cholesterol LOVASTATIN 61505879674 No Longer Active Nettie Newberry APRN Active NITROSTAT 0.4 MG SUBL 1 tab under tongueas needed for chest pain ( may take 3 total, 5 min apart, then call 911) NITROGLYCERIN 94615490431 No Longer Active Nettie Newberry MAHENDRA Active POTASSIUM CHLORIDE CR 10 MEQ CPCR 1 capsule by mouth daily 02/14 POTASSIUM CHLORIDE 62655076766 No Longer Active Nettie Newberry MAHENDRA Active TESSALON PERLES 100 MG CAP 1 to 2 tablets by mouth 3 times daily as needed for cough BENZONATATE 84153051567 No Longer Active Nettie Newberry MAHENDRA Active THEOPHYLLINE ER 200 MG ORAL [id number] Take 1 tab every 12 hours THEOPHYLLINE 75974074036 Active Tawnya Pardo MA Active PREDNISONE 20 MG TAB 2 po qd x 5 days PREDNISONE 94559280014 No Longer Active Jae Morgan MD Active AZITHROMYCIN 250 MG TABS 2 po qd x 1 day, then 1 po qd x 4 days AZITHROMYCIN 03695195514 No Longer Active Jae Morgan MD Active PREDNISONE 20 MG TAB 1 tab twice daily for 3 day, then one daily for three days PREDNISONE 87365825247 No Longer Active Jae Morgan MD Active SINGULAIR 10 MG TABS 1 pill by mouth every evening for breathing. MONTELUKAST SODIUM 94612771034 Active Tawnya Pardo MA Active TYLENOL 325 MG TAB 3 by mouth q4h as needed ACETAMINOPHEN 66737215443 Active Harinder Hernandez DO Active POTASSIUM CHLORIDE ER 10 MEQ CR-TABS take 1 tab po daily POTASSIUM CHLORIDE 10868866657 No Longer Active Harinder Hernandez DO Active PREDNISONE 20 MG TAB 1 TID x 2 days, then 1 BID x 3 days, then 1 Daily x 3 days, then stop PREDNISONE 12297843632 No Longer Active Jialec Montemayor APRN Active LEVAQUIN 500 MG TAB 1 tablet by mouth daily LEVOFLOXACIN 42318431435 No Longer Active Jillina Frazell [employer] Active NEURONTIN 300 MG CAP 1 cap by mouth three times daily for restless leg 06/22 GABAPENTIN 96007981349 No Longer Active Harinder Hernandez DO Active BENZONATATE 100 MG CAPS 1 cap po TID PRN BENZONATATE 47761702404 No Longer Active Harinder Hernandez DO Active MONTELUKAST SODIUM 10 MG TABS 1 tab po in the evening MONTELUKAST SODIUM 18387607626 No Longer Active Harinder Hernandez DO Active MUPIROCIN 2 % OINT apply to affected area BID x 14 days MUPIROCIN 57699684802 No Longer Active Harinder Hernandez DO Active TYLENOL EXTRA STRENGTH 500 MG TABS as needed ACETAMINOPHEN 96204923754 No Longer Active Harinder Hernandez DO Active PREDNISONE 10 MG TABS 1 tab po daily PREDNISONE 56491269686 No Longer Active Harinder Hernandez DO Active PREDNISONE 20 MG TAB 2 tabs daily for 4 days, 1 tab daily for 4 days, 1/2 tab daily for 4 days PREDNISONE 06069460925 No Longer Active Harinder Hernandez DO Active AZITHROMYCIN 250 MG TABS 2 po qd x 1 day, then 1 po qd x 4 days AZITHROMYCIN 87073825650 No Longer Active Harinder Hernandez DO Active PREDNISONE 20 MG TAB 3 tabs today, then 1 tab twice daily for 3 day, then one daily for three days PREDNISONE 42318998325 No Longer Active Harinder Hernandez DO Active NIFEDIAC CC 30 MG [id number] 1 tablet daily for raynaud's syndrome NIFEDIPINE 13960686885 No Longer Active Tawnya Pardo MA Active AMBIEN 10 MG TAB 1/2 tab by mouth at bedtime as needed for sleep ZOLPIDEM TARTRATE 66054197276 Active Harinder Hernandez DO Active CLONAZEPAM 1 MG TABS 1 tablet at bedtime for insomnia and restless legs 09/14 CLONAZEPAM 37172424499 Active Harinder Hernandez DO Active CLONAZEPAM 0.5 MG TABS 1 tab po daily CLONAZEPAM 57833653214 No Longer Active Harinder Hernandez DO Active PREDNISONE 10 MG TAB 1 tablet daily for COPD PREDNISONE 59209851964 Active Tawnya Pardo MA Active PROAIR HFA 108 (90 BASE) MCG/ACT AERS 2 puffs four times a day as needed 2012 ALBUTEROL SULFATE 56509116094 Active Tawnya Pardo MA Active FLOVENT HFA 110 MCG/ACT AERO 2 puffs inhaled b.i.d. FLUTICASONE PROPIONATE HFA 01547462617 Active Tawnya Pardo MA Active ACIPHEX 20 MG TBEC 1 tab po daily RABEPRAZOLE SODIUM 96891579661 Active Kaylah Newberry Active CLONAZEPAM 0.5 MG TABS 1 tab po daily CLONAZEPAM 0.5 MG TABS 333705 CLONAZEPAM Inactive PREDNISONE 20 MG TAB 3 tabs today, then 1 tab twice daily for 3 day, then one daily for three days PREDNISONE 20 MG TAB 391734 PREDNISONE Inactive PREDNISONE 20 MG TAB 2 tabs daily for 4 days, 1 tab daily for 4 days, 1/2 tab daily for 4 days PREDNISONE 20 MG TAB 485417 PREDNISONE Inactive PREDNISONE 10 MG TABS 1 tab po daily PREDNISONE 10 MG TABS 773638 PREDNISONE Inactive TYLENOL EXTRA STRENGTH 500 MG TABS as needed TYLENOL EXTRA STRENGTH 500 MG TABS 713491 ACETAMINOPHEN Inactive MUPIROCIN 2 % OINT apply to affected area BID x 14 days MUPIROCIN 2 % OINT 359399 MUPIROCIN Inactive MONTELUKAST SODIUM 10 MG TABS 1 tab po in the evening MONTELUKAST SODIUM 10 MG TABS 20010818 MONTELUKAST SODIUM Inactive BENZONATATE 100 MG CAPS 1 cap po TID PRN BENZONATATE 100 MG CAPS 19730321 BENZONATATE Inactive NEURONTIN 300 MG CAP 1 cap by mouth three times daily for restless leg 06/22 NEURONTIN 300 MG CAP 103738 GABAPENTIN Inactive LEVAQUIN 500 MG TAB 1 tablet by mouth daily LEVAQUIN 500 MG TAB 425227 LEVOFLOXACIN Inactive PREDNISONE 20 MG TAB 1 TID x 2 days, then 1 BID x 3 days, then 1 Daily x 3 days, then stop PREDNISONE 20 MG TAB 259560 PREDNISONE Inactive POTASSIUM CHLORIDE ER 10 MEQ CR-TABS take 1 tab po daily POTASSIUM CHLORIDE ER 10 MEQ CR-TABS POTASSIUM CHLORIDE Inactive PREDNISONE 20 MG TAB 1 tab twice daily for 3 day, then one daily for three days PREDNISONE 20 MG TAB 300114 PREDNISONE Inactive TESSALON PERLES 100 MG CAP 1 to 2 tablets by mouth 3 times daily as needed for cough TESSALON PERLES 100 MG CAP 365793 BENZONATATE Inactive POTASSIUM CHLORIDE CR 10 MEQ CPCR 1 capsule by mouth daily 02/14 POTASSIUM CHLORIDE CR 10 MEQ CPCR POTASSIUM CHLORIDE Inactive NITROSTAT 0.4 MG SUBL 1 tab under tongueas needed for chest pain ( may take 3 total, 5 min apart, then call 911) NITROSTAT 0.4 MG SUBL 315794 NITROGLYCERIN Inactive LOVASTATIN 40 MG TABS 1 pill by mouth nightly for cholesterol LOVASTATIN 40 MG TABS 723914 LOVASTATIN Inactive CEFDINIR 300 MG ORAL CAPS take 1 cap po bid x 10 days CEFDINIR 300 MG ORAL CAPS 922914 CEFDINIR Inactive ACEBUTOLOL HCL 200 MG CAPS 1 cap in the morning and 2 caps in the evening ACEBUTOLOL HCL 200 MG CAPS 205497 ACEBUTOLOL HCL Inactive VENTOLIN HFA 108 (90 BASE) MCG/ACT AERS 2 -4 puffs four times a day PRN 2013 VENTOLIN HFA 108 (90 BASE) MCG/ACT AERS ALBUTEROL SULFATE Inactive LEVAQUIN 500 MG ORAL TABS Take 1 tab po daily x 8 days LEVAQUIN 500 MG ORAL TABS 328955 LEVOFLOXACIN Inactive PREDNISONE 20 MG TAB 2 tabs daily for 4 days, 1 tab daily for 4 days, 1/2 tab daily for 4 days PREDNISONE 20 MG TAB 075659 PREDNISONE Inactive LOVASTATIN 40 MG ORAL TABS Take 1 tab po every hs LOVASTATIN 40 MG ORAL TABS 577801 LOVASTATIN Inactive DILAUDID 2 MG ORAL TABS Take 1/2 tab po every 4 hours as needed for pain 2014 DILAUDID 2 MG ORAL TABS 269481 HYDROMORPHONE HCL Inactive AMITRIPTYLINE HCL 25 MG ORAL TABS 1 q hs prn AMITRIPTYLINE HCL 25 MG ORAL TABS 663246 AMITRIPTYLINE HCL Inactive MECLIZINE HCL 25 MG TAB 1 tablet three times daily for 3 days, then 1/2 tab three times daily for 3 days. MECLIZINE HCL 25 MG TAB 366223 MECLIZINE HCL Inactive AMLODIPINE BESYLATE 5 MG ORAL TABS Take 1 tab po daily AMLODIPINE BESYLATE 5 MG ORAL TABS 641418 AMLODIPINE BESYLATE Inactive TOPIRAMATE 25 MG TABS 1 tab po BID TOPIRAMATE 25 MG TABS 897468 TOPIRAMATE Inactive PREDNISONE 20 MG TAB 1 tablet twice daily for 2 days, then 1 tablet once daily for 2 days PREDNISONE 20 MG TAB 284211 PREDNISONE Inactive PREDNISONE 20 MG TAB 1 tab twice daily for 3 day, then one daily for three days PREDNISONE 20 MG TAB 667622 PREDNISONE Inactive AZITHROMYCIN 250 MG TABS 2 po qd x 1 day, then 1 po qd x 4 days AZITHROMYCIN 250 MG TABS 4027896 AZITHROMYCIN Inactive AZITHROMYCIN 250 MG TABS 2 po qd x 1 day, then 1 po qd x 4 days AZITHROMYCIN 250 MG TABS 6514170 AZITHROMYCIN Inactive PREDNISONE 20 MG TAB 2 po qd x 5 days PREDNISONE 20 MG TAB 728129 PREDNISONE Inactive Vital Signs Date Name Value [...] Panel - Chemistry sodium, serum 137 mmol/L 185-669 8324/01/03 potassium, serum 3.4 mmol/L 3.5-5.2 chloride, serum [...] Magnesium - Chemistry cholesterol, serum 180 mg/dL 684-724 4810/08/08 triglyceride, serum, fasting 92 mg/dL 30-200 HDL cholesterol, serum 66 mg/dL 32-96 LDL cholesterol, serum 96 mg/dL 0-130 sodium, serum 142 mmol/L 325-146 8081/08/08 carbon dioxide, venous blood 27.4 mmol/L 21.0-32.0 [...] 10.0-20.0 Encounters Code Encounter Date Provider Facility CPT-76270 Level 3 Est. Patient 09:58:58 CDT Harinder Cr [facility] CPT-06541 Level 3 Est. Patient 12:37:21 CDT Harinder Cr [facility] CPT-83179 Level 3 Est. Patient 18:37:17 CDT Harinder [facility] CPT-76052 Level 4 Est. Patient 11:15:54 CDT Nettie Newberry [facility] CPT-65861 Level 3 Est. Patient 16:42:24 CDT Harinder Cr [facility] CPT-37312 Level 3 Est. Patient 15:03:36 CDT Harinder Cr [facility] CPT-32497 Level 3 Est. Patient 15:03:20 CDT Harinder Cr [facility] CPT-10273 Level 3 Est. Patient 12:14:34 CDT Harinder Cr [facility] CPT-98823 Level 3 Est. Patient 13:47:15 CDT Harinder Cr [facility] CPT-97344 Level 3 Est. Patient 14:08:24 CDT Harinder Hernandez [facility] CPT-40146 Level 3 Est. Patient 10:07:15 CDT Harinder Hernandez [facility] CPT-60823 Level 3 Est. Patient 10:06:59 CDT Haridner Hernandez [facility] CPT-93318 Level 3 Est. Patient 15:53:29 CDT Jae Morgan MD [facility] CPT-48704 Level 3 Est. Patient 17:19:04 CDT Harinder Hernandez [facility] CPT-80193 Level 3 Est. Patient 11:13:01 CDT Harinder Hernandez [facility] CPT-24753 Level 3 Est. Patient 09:03:58 CDT Harinder Hernandez [facility] CPT-33082 Level 3 Est. Patient 14:46:45 SET UP [employer] Harinder Hernandez [facility] CPT-14355 Level 3 Est. Patient 09:35:49 SET UP [employer] Harinder Hernandez [facility] CPT-73081 Level 3 Est. Patient 09:29:37 SET UP [employer] Harinder Hernandez [facility] CPT-66458 Level 3 Est. Patient 15:51:07 CDT Harinder Hernandez [facility] CPT-76001 Level 3 Est. Patient 18:13:13 CDT Harinder Hernandez [facility] CPT-81545 Level 3 Est. Patient 10:44:19 CDT Harinder Hernandez [facility] CPT-92281 Level 4 Est. Patient 10:07:19 SET UP [employer] Harinder Hernandez [facility] CPT-09240 Level 3 Est. Patient 15:59:32 SET UP [employer] Harinder Cr [facility] Procedures Code Procedure Name Date Entry Date Standard Description CPT-23428 BMP - LAB USE ONLY 16:45:09 SET UP [employer] CPT-85328 Port a cath flush 12:00:13 SET UP [employer] CPT-TCMM Transitional Care Mgmt-Moderate 11:20:16 SET UP [employer] CPT-53732 First Vx - Ix admin for Medicare patients 17:35:15 CDT CPT-44692 Fluzone Preservative Free Intramuscular Suspension 17:35 :15 CDT CPT-84214 Microalbumin - LAB USE ONLY 11:52:05 CDT CPT-TCMM Transitional Care Mgmt-Moderate 11:33:57 CDT CPT-73783 No Charge Offi Visit 14:11:29 CDT CPT-62101 Magnesium - LAB USE ONLY 10:45:44 CDT CPT-75476 Lipid - LAB USE ONLY 10:45:44 CDT CPT-92703 CBC - LAB USE ONLY 10:45:44 CDT CPT-02870 Venipuncture Draw Fee 10:45:43 CDT CPT-35836 Venipuncture Draw Fee 18:21:27 CDT CPT-JTINJ Asp/Joint Injection 18:38:04 CDT CPT-44799 Immunization Each Additional Inj 17:38:04 CDT CPT-72597 Immunization Single Admin 17:38:04 CDT CPT-43462 Prevnar 13 17:38:04 CDT CPT-46087 Fluzone Quadrivalent preservative free (>=3yrs.) 17:38: 04 CDT CPT-35193 No Charge Offi Visit 11:14:03 CDT CPT-94127 Chest 2V Frontal and Lat 14:00:18 CDT CPT-OV Office Visit 16:10:28 CDT CPT-JTINJ Asp/Joint Injection 09:03:57 CDT CPT-Cryo Cryotherapy 09:35:49 SET UP [employer] CPT-JTINJ Asp/Joint Injection 09:34:45 SET UP [employer] CPT-J2930 Solu Medrol 125 mg (Methyl Prednisolone Sodium Succinate) 20:37:27 CDT CPT-82937 Abx/Therapy Injection 20:37:27 CDT CPT-59913 Port a cath flush 08:15:51 CDT CPT-34364 Port a cath flush 09:54:16 CDT CPT-00309 Port a cath flush 09:38:02 CDT CPT-37013 Port a cath flush 11:00:27 SET UP [employer]
--- OUTSIDE RECORDS SUMMARY | 2017-12-29 05:36 | XMS REPORT | Clinical Summary ---
[...] Hernandez DO Nausea and vomiting ICD-787.01 Inactive aJe Morgan MD Diarrhea ICD-787.91 Inactive Jae Morgan [...] 4hrs PRN Wheezing Dx: J44.1 ALBUTEROL SULFATE 55913191177 Active Kortney Mccani Active AMLODIPINE BESYLATE 5 MG TABS 1 tablet by mouth daily AMLODIPINE BESYLATE 94143060458 Active Harinder Hernandez DO Active NIFEDIPINE ER 30 MG ORAL [id number] 1 daily NIFEDIPINE 81290052951 No Longer Active Harinder Hernandez DO Active POTASSIUM CHLORIDE 20 MEQ ORAL PACK Take 1 tablet by mouth daily POTASSIUM CHLORIDE 25004006979 Active Ciera Pimentel Active FLOVENT HFA 110 MCG/ACT AERO 2 puffs inhaled b.i.d. FLUTICASONE PROPIONATE HFA 72586976422 Active Harinder Hernandez DO Active POTASSIUM CHLORIDE CR 10 MEQ CPCR 1 capsule by mouth daily POTASSIUM CHLORIDE 19305798784 Active Harinder Hernandez DO Active EPIPEN 2-BRUNA 0.3 MG/0.3ML INJ SOAJ 1 INJ NEEDED EPINEPHRINE 76962185598 Active Harinder Hernandez DO Active PREDNISONE 20 MG TAB 1 tab twice daily for 3 day, then one daily for three days PREDNISONE 08652098394 No Longer Active Harinder Hernandez DO Active PREDNISONE 20 MG TAB 1 tablet twice daily for 2 days, then 1 tablet once daily for 2 days PREDNISONE 47485989468 No Longer Active Harinder Hernandez DO Active ASMANEX 120 METERED DOSES 220 MCG/INH INH AEPB 2 puffs orally twice daily MOMETASONE FUROATE 86975933302 Active Jeri Sosa RPT,RMA Active TOPIRAMATE 25 MG TABS 1 tab po BID TOPIRAMATE 14073914832 No Longer Active Nettie Newberry APRN Active AMLODIPINE BESYLATE 5 MG ORAL TABS Take 1 tab po daily AMLODIPINE BESYLATE 76131628421 No Longer Active Nettie Rohith MAHENDRA Active MECLIZINE HCL 25 MG TAB 1 tablet three times daily for 3 days, then 1/2 tab three times daily for 3 days. MECLIZINE HCL 58396843278 No Longer Active Nettie Newberry APRN Active AMITRIPTYLINE HCL 25 MG ORAL TABS 1 q hs prn AMITRIPTYLINE HCL 07423235478 No Longer Active Nettie Rohith MAHENDRA Active DILAUDID 2 MG ORAL TABS Take 1/2 tab po every 4 hours as needed for pain 2014 HYDROMORPHONE HCL 26811175006 No Longer Active Nettie Newberry APRN Active CLOPIDOGREL BISULFATE 75 MG ORAL TABS 1 tab by mouth once daily CLOPIDOGREL BISULFATE 69989996736 Active Tawnya Pardo MA Active ATORVASTATIN CALCIUM 10 MG ORAL TABS 1 at bedtime ATORVASTATIN CALCIUM 71612044279 Active Tawnya Pardo MA Active LOVASTATIN 40 MG ORAL TABS Take 1 tab po every hs LOVASTATIN 50568507783 No Longer Active Harinder Hernandez DO Active PREDNISONE 20 MG TAB 2 tabs daily for 4 days, 1 tab daily for 4 days, 1/2 tab daily for 4 days PREDNISONE 51372896438 No Longer Active Harinder Hernandez DO Active LEVAQUIN 500 MG ORAL TABS Take 1 tab po daily x 8 days LEVOFLOXACIN 84149134009 No Longer Active Harinder Hernandez DO Active VENTOLIN HFA 108 (90 BASE) MCG/ACT AERS 2 -4 puffs four times a day PRN 2013 ALBUTEROL SULFATE 40884325590 No Longer Active Jeri Sosa RPT,RMA Active ACEBUTOLOL HCL 200 MG CAPS 1 cap in the morning and 2 caps in the evening ACEBUTOLOL HCL 91562852492 No Longer Active Harinder Hernandez DO Active CEFDINIR 300 MG ORAL CAPS take 1 cap po bid x 10 days CEFDINIR 04673790955 No Longer Active Harinder Hernandez DO Active LOVASTATIN 40 MG TABS 1 pill by mouth nightly for cholesterol LOVASTATIN 14799279787 No Longer Active Nettie Newberry APRN Active NITROSTAT 0.4 MG SUBL 1 tab under tongueas needed for chest pain ( may take 3 total, 5 min apart, then call 911) NITROGLYCERIN 12460289324 No Longer Active Nettie Newberry APRN Active POTASSIUM CHLORIDE CR 10 MEQ CPCR 1 capsule by mouth daily 02/14 POTASSIUM CHLORIDE 56785975591 No Longer Active Nettie Newberry APRN Active TESSALON PERLES 100 MG CAP 1 to 2 tablets by mouth 3 times daily as needed for cough BENZONATATE 29516869733 No Longer Active Nettie Newberry APRN Active THEOPHYLLINE ER 200 MG ORAL [id number] Take 1 tab every 12 hours THEOPHYLLINE 55945327039 Active Tawnya Pardo MA Active PREDNISONE 20 MG TAB 2 po qd x 5 days PREDNISONE 85164686498 No Longer Active Jae Morgan MD Active AZITHROMYCIN 250 MG TABS 2 po qd x 1 day, then 1 po qd x 4 days AZITHROMYCIN 09802802794 No Longer Active Jae Morgan MD Active PREDNISONE 20 MG TAB 1 tab twice daily for 3 day, then one daily for three days PREDNISONE 93338485236 No Longer Active Jae Morgan MD Active SINGULAIR 10 MG TABS 1 pill by mouth every evening for breathing. MONTELUKAST SODIUM 74612415424 Active Tawnya Pardo MA Active TYLENOL 325 MG TAB 3 by mouth q4h as needed ACETAMINOPHEN 91114583101 Active Harinder Hernandez DO Active POTASSIUM CHLORIDE ER 10 MEQ CR-TABS take 1 tab po daily POTASSIUM CHLORIDE 57044759029 No Longer Active Harinder Hernandez DO Active PREDNISONE 20 MG TAB 1 TID x 2 days, then 1 BID x 3 days, then 1 Daily x 3 days, then stop PREDNISONE 76682815157 No Longer Active Jillina Frazell [employer] Active LEVAQUIN 500 MG TAB 1 tablet by mouth daily LEVOFLOXACIN 78886269576 No Longer Active Jillina Frazell [employer] Active NEURONTIN 300 MG CAP 1 cap by mouth three times daily for restless leg 06/22 GABAPENTIN 49892606077 No Longer Active Harinder Hernandez DO Active BENZONATATE 100 MG CAPS 1 cap po TID PRN BENZONATATE 87237453846 No Longer Active Harinder Hernandez DO Active MONTELUKAST SODIUM 10 MG TABS 1 tab po in the evening MONTELUKAST SODIUM 21677719294 No Longer Active Harinder Hernandez DO Active MUPIROCIN 2 % OINT apply to affected area BID x 14 days MUPIROCIN 18614933642 No Longer Active Harinder Hernandez DO Active TYLENOL EXTRA STRENGTH 500 MG TABS as needed ACETAMINOPHEN 71302853920 No Longer Active Harinder Hernandez DO Active PREDNISONE 10 MG TABS 1 tab po daily PREDNISONE 23841036216 No Longer Active Harinder Hernandez DO Active PREDNISONE 20 MG TAB 2 tabs daily for 4 days, 1 tab daily for 4 days, 1/2 tab daily for 4 days PREDNISONE 71358874138 No Longer Active Harinder Hernandez DO Active AZITHROMYCIN 250 MG TABS 2 po qd x 1 day, then 1 po qd x 4 days AZITHROMYCIN 39001874057 No Longer Active Harinder Hernandez DO Active PREDNISONE 20 MG TAB 3 tabs today, then 1 tab twice daily for 3 day, then one daily for three days PREDNISONE 56379063435 No Longer Active Harinder Hernandez DO Active NIFEDIAC CC 30 MG [id number] 1 tablet daily for raynaud's syndrome NIFEDIPINE 73874157632 No Longer Active Tawnya Pardo MA Active AMBIEN 10 MG TAB 1/2 tab by mouth at bedtime as needed for sleep ZOLPIDEM TARTRATE 53835294642 Active Harinder Hernandez DO Active CLONAZEPAM 1 MG TABS 1 tablet at bedtime for insomnia and restless legs 09/14 CLONAZEPAM 28090485723 Active Harinder Hernandez DO Active CLONAZEPAM 0.5 MG TABS 1 tab po daily CLONAZEPAM 58271876093 No Longer Active Harinder Hernandez DO Active PREDNISONE 10 MG TAB 1 tablet daily for COPD PREDNISONE 16864418894 Active Tawnya Pardo MA Active PROAIR HFA 108 (90 BASE) MCG/ACT AERS 2 puffs four times a day as needed 2012 ALBUTEROL SULFATE 66694503974 Active Tawnya Pardo MA Active FLOVENT HFA 110 MCG/ACT AERO 2 puffs inhaled b.i.d. FLUTICASONE PROPIONATE HFA 48729086753 Active Kortney Mccain Active ACIPHEX 20 MG TBEC 1 tab po daily RABEPRAZOLE SODIUM 74214611094 Active Kaylah Newberry Active CLONAZEPAM 0.5 MG TABS 1 tab po daily CLONAZEPAM 0.5 MG TABS 447625 CLONAZEPAM Inactive PREDNISONE 20 MG TAB 3 tabs today, then 1 tab twice daily for 3 day, then one daily for three days PREDNISONE 20 MG TAB 381844 PREDNISONE Inactive PREDNISONE 20 MG TAB 2 tabs daily for 4 days, 1 tab daily for 4 days, 1/2 tab daily for 4 days PREDNISONE 20 MG TAB 605296 PREDNISONE Inactive PREDNISONE 10 MG TABS 1 tab po daily PREDNISONE 10 MG TABS 017368 PREDNISONE Inactive TYLENOL EXTRA STRENGTH 500 MG TABS as needed TYLENOL EXTRA STRENGTH 500 MG TABS 936439 ACETAMINOPHEN Inactive MUPIROCIN 2 % OINT apply to affected area BID x 14 days MUPIROCIN 2 % OINT 319105 MUPIROCIN Inactive MONTELUKAST SODIUM 10 MG TABS 1 tab po in the evening MONTELUKAST SODIUM 10 MG TABS 20010818 MONTELUKAST SODIUM Inactive BENZONATATE 100 MG CAPS 1 cap po TID PRN BENZONATATE 100 MG CAPS 19730321 BENZONATATE Inactive NEURONTIN 300 MG CAP 1 cap by mouth three times daily for restless leg 06/22 NEURONTIN 300 MG CAP 391793 GABAPENTIN Inactive LEVAQUIN 500 MG TAB 1 tablet by mouth daily LEVAQUIN 500 MG TAB 311292 LEVOFLOXACIN Inactive PREDNISONE 20 MG TAB 1 TID x 2 days, then 1 BID x 3 days, then 1 Daily x 3 days, then stop PREDNISONE 20 MG TAB 505213 PREDNISONE Inactive POTASSIUM CHLORIDE ER 10 MEQ CR-TABS take 1 tab po daily POTASSIUM CHLORIDE ER 10 MEQ CR-TABS POTASSIUM CHLORIDE Inactive PREDNISONE 20 MG TAB 1 tab twice daily for 3 day, then one daily for three days PREDNISONE 20 MG TAB 132470 PREDNISONE Inactive TESSALON PERLES 100 MG CAP [...] then call 911) NITROSTAT 0.4 MG SUBL 825123 NITROGLYCERIN Inactive LOVASTATIN 40 MG TABS 1 pill by mouth nightly for cholesterol LOVASTATIN 40 MG TABS 216506 LOVASTATIN Inactive CEFDINIR 300 MG ORAL CAPS take 1 cap po bid x 10 days CEFDINIR 300 MG ORAL CAPS 20021018 CEFDINIR Inactive ACEBUTOLOL HCL 200 MG CAPS 1 cap in the morning and 2 caps in the evening ACEBUTOLOL HCL 200 MG CAPS 178516 ACEBUTOLOL HCL Inactive VENTOLIN HFA 108 (90 BASE) MCG/ACT AERS 2 -4 puffs four times a day PRN 2013 VENTOLIN HFA 108 (90 BASE) MCG/ACT AERS ALBUTEROL SULFATE Inactive LEVAQUIN 500 MG ORAL TABS Take 1 tab po daily x 8 days LEVAQUIN 500 MG ORAL TABS 464823 LEVOFLOXACIN Inactive PREDNISONE 20 MG TAB 2 tabs daily for 4 days, 1 tab daily for 4 days, 1/2 tab daily for 4 days PREDNISONE 20 MG TAB 365901 PREDNISONE Inactive LOVASTATIN 40 MG ORAL TABS Take 1 tab po every hs LOVASTATIN 40 MG ORAL TABS 309576 LOVASTATIN Inactive DILAUDID 2 MG ORAL TABS Take 1/2 tab po every 4 hours as needed for pain 2014 DILAUDID 2 MG ORAL TABS 143719 HYDROMORPHONE HCL Inactive AMITRIPTYLINE HCL 25 MG ORAL TABS 1 q hs prn AMITRIPTYLINE HCL 25 MG ORAL TABS 307647 AMITRIPTYLINE HCL Inactive MECLIZINE HCL 25 MG TAB 1 tablet three times daily for 3 days, then 1/2 tab three times daily for 3 days. MECLIZINE HCL 25 MG TAB 490813 MECLIZINE HCL Inactive AMLODIPINE BESYLATE 5 MG ORAL TABS Take 1 tab po daily AMLODIPINE BESYLATE 5 MG ORAL TABS 246531 AMLODIPINE BESYLATE Inactive TOPIRAMATE 25 MG TABS 1 tab po BID TOPIRAMATE 25 MG TABS 320505 TOPIRAMATE Inactive PREDNISONE 20 MG TAB 1 tablet twice daily for 2 days, then 1 tablet once daily for 2 days PREDNISONE 20 MG TAB 252124 PREDNISONE Inactive PREDNISONE 20 MG TAB 1 tab twice daily for 3 day, then one daily for three days PREDNISONE 20 MG TAB 367244 PREDNISONE Inactive NIFEDIPINE ER 30 MG ORAL [id number] 1 daily NIFEDIPINE ER 30 MG ORAL [id number] NIFEDIPINE Inactive AZITHROMYCIN 250 MG TABS 2 po qd x 1 day, then 1 po qd x 4 days AZITHROMYCIN 250 MG TABS 1202300 AZITHROMYCIN Inactive AZITHROMYCIN 250 MG TABS 2 po qd x 1 day, then 1 po qd x 4 days AZITHROMYCIN 250 MG TABS 3065440 AZITHROMYCIN Inactive PREDNISONE 20 MG TAB 2 po qd x 5 days PREDNISONE 20 MG TAB 265841 PREDNISONE Inactive Vital Signs Date Name Value [...] Panel - Chemistry sodium, serum 137 mmol/L 880-511 6386/01/03 potassium, serum 3.4 mmol/L 3.5-5.2 chloride, serum [...] Magnesium - Chemistry cholesterol, serum 180 mg/dL 011-371 5814/08/08 triglyceride, serum, fasting 92 mg/dL 30-200 HDL cholesterol, serum 66 mg/dL 32-96 LDL cholesterol, serum 96 mg/dL 0-130 sodium, serum 142 mmol/L 419-957 9443/08/08 carbon dioxide, venous blood 27.4 mmol/L 21.0-32.0 [...] 10.0-20.0 Encounters Code Encounter Date Provider Facility CPT-76277 Level 3 Est. Patient 09:58:58 CDT Harinder Cr [facility] CPT-47231 Level 3 Est. Patient 12:37:21 CDT Harindre Cr [facility] CPT-20449 Level 3 Est. Patient 18:37:17 CDT Harinder [facility] CPT-57734 Level 4 Est. Patient 11:15:54 CDT Nettie Newberry [facility] CPT-38718 Level 3 Est. Patient 16:42:24 CDT Harinder rC [facility] CPT-24176 Level 3 Est. Patient 15:03:36 CDT Harinder Cr [facility] CPT-91664 Level 3 Est. Patient 15:03:20 CDT Harinder Cr [facility] CPT-40220 Level 3 Est. Patient 12:14:34 CDT Harinder Cr [facility] CPT-92664 Level 3 Est. Patient 13:47:15 CDT Harinder Cr [facility] CPT-59296 Level 3 Est. Patient 14:08:24 CDT Harinder Hernandez [facility] CPT-71669 Level 3 Est. Patient 10:07:15 CDT Harinder Hernandez [facility] CPT-75127 Level 3 Est. Patient 10:06:59 CDT Harinder Hernandez [facility] CPT-54971 Level 3 Est. Patient 15:53:29 CDT Jae Morgan MD [facility] CPT-14039 Level 3 Est. Patient 17:19:04 CDT Harinder Hernandez [facility] CPT-99924 Level 3 Est. Patient 11:13:01 CDT Harinder Hernandez [facility] CPT-86620 Level 3 Est. Patient 09:03:58 CDT Harinder Hernandez [facility] CPT-81277 Level 3 Est. Patient 14:46:45 PHARMACY MESSENGER Harinder Hernandez [facility] CPT-31223 Level 3 Est. Patient 09:35:49 PHARMACY MESSENGER Harinder Hernandez [facility] CPT-14440 Level 3 Est. Patient 09:29:37 PHARMACY MESSENGER Harinder Hernandez [facility] CPT-16796 Level 3 Est. Patient 15:51:07 CDT Harinder Hernandez [facility] CPT-67512 Level 3 Est. Patient 18:13:13 CDT Harinder Hernandez [facility] CPT-10955 Level 3 Est. Patient 10:44:19 CDT Harinder Hernandez [facility] CPT-50881 Level 4 Est. Patient 10:07:19 PHARMACY MESSENGER Harinder Hernandez [facility] CPT-43867 Level 3 Est. Patient 15:59:32 PHARMACY MESSENGER Harinder Cr [facility] Procedures Code Procedure Name Date Entry Date Standard Description CPT-02255 BMP - LAB USE ONLY 16:45:09 PHARMACY MESSENGER CPT-84986 Port a cath flush 12:00:13 PHARMACY MESSENGER CPT-TCMM Transitional Care Mgmt-Moderate 11:20:16 PHARMACY MESSENGER CPT-33198 First Vx - Ix admin for Medicare patients 17:35:15 CDT CPT-36697 Fluzone Preservative Free Intramuscular Suspension 17:35 :15 CDT CPT-57106 Microalbumin - LAB USE ONLY 11:52:05 CDT CPT-TCMM Transitional Care Mgmt-Moderate 11:33:57 CDT CPT-06262 No Charge Offi Visit 14:11:29 CDT CPT-86777 Magnesium - LAB USE ONLY 10:45:44 CDT CPT-38048 Lipid - LAB USE ONLY 10:45:44 CDT CPT-64156 CBC - LAB USE ONLY 10:45:44 CDT CPT-07257 Venipuncture Draw Fee 10:45:43 CDT CPT-21166 Venipuncture Draw Fee 18:21:27 CDT CPT-JTINJ Asp/Joint Injection 18:38:04 CDT CPT-73011 Immunization Each Additional Inj 17:38:04 CDT CPT-59473 Immunization Single Admin 17:38:04 CDT CPT-09901 Prevnar 13 17:38:04 CDT CPT-50241 Fluzone Quadrivalent preservative free (>=3yrs.) 17:38: 04 CDT CPT-67383 No Charge Offi Visit 11:14:03 CDT CPT-07355 Chest 2V Frontal and Lat 14:00:18 CDT CPT-OV Office Visit 16:10:28 CDT CPT-JTINJ Asp/Joint Injection 09:03:57 CDT CPT-Cryo Cryotherapy 09:35:49 PHARMACY MESSENGER CPT-JTINJ Asp/Joint Injection 09:34:45 PHARMACY MESSENGER CPT-J2930 Solu Medrol 125 mg (Methyl Prednisolone Sodium Succinate) 20:37:27 CDT CPT-04426 Abx/Therapy Injection 20:37:27 CDT CPT-08258 Port a cath flush 08:15:51 CDT CPT-38016 Port a cath flush 09:54:16 CDT CPT-04317 Port a cath flush 09:38:02 CDT CPT-51055 Port a cath flush 11:00:27 PHARMACY MESSENGER
--- OUTSIDE RECORDS SUMMARY | 2017-12-29 05:38 | XMS REPORT | Clinical Summary ---
Author Author Admin, QIE Organization [facility] Mobile Shareholder Address Unknown Phone Unavailable Allergies, Adverse Reactions, [...] tab SL q5min PRN chest pain NITROGLYCERIN [id number] Active Meenu Alejo LPN Active THEOPHYLLINE ER 300 MG ORAL TABLET EXTENDED RELEASE 12 HOUR 1 po BID THEOPHYLLINE 32539021318 Active Kortney Mccain Active POTASSIUM CHLORIDE ER 20 MEQ ORAL TABLET EXTENDED RELEASE 1 po q day POTASSIUM CHLORIDE 54927380955 Active Kortney Mccain Active POTASSIUM CHLORIDE 20 MEQ ORAL PACKET 1 tab po q day POTASSIUM CHLORIDE 27328489182 No Longer Active Kortney Mccain Active POTASSIUM CHLORIDE ER 10 MEQ ORAL CAPSULE EXTENDED RELEASE 1 capsule BID 2016 POTASSIUM CHLORIDE 38934612973 No Longer Active oKrtney Mccain Active LASIX 20 MG ORAL TABLET 1 tablet by mouth every morning FUROSEMIDE 69639037616 No Longer Active Kortney Mccain Active SPIRONOLACTONE 25 MG ORAL TABLET 1 tablet by mouth daily SPIRONOLACTONE 99619535005 Active Kortney Mccain Active FLUOXETINE HCL 10 MG ORAL CAPSULE 1 po qd for depression/anxiety FLUOXETINE HCL 03893544406 Active Harinder Hernandez DO Active VOLTAREN 1 % TRANSDERMAL GEL apply q 6-8 hour to left arm as needed for pain DICLOFENAC SODIUM 47722385206 Active Kortney Mccain Active ALBUTEROL SULFATE (2.5 MG/3ML) 0.083% INHALATION NEBULIZATION SOLUTION 1 vial neb q 4hrs for severe asthma. 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 NIFEDIPINE 76627027369 Active Kortney Mccain Active AMLODIPINE BESYLATE 5 MG ORAL TABLET 1 tablet by mouth daily 2016 AMLODIPINE BESYLATE 72824611119 No Longer Active Harinder Hernandez DO Active TOPAMAX 25 MG ORAL TABLET 1 tab po BID TOPIRAMATE 13910333990 Active Kortney Mccain Active FLUTICASONE PROPIONATE 50 MCG/ACT NASAL SUSPENSION 2 sprays per nostril daily PRN Allergies FLUTICASONE PROPIONATE 29151683780 Active Krotney Mccain Active NIFEDIPINE ER 30 MG ORAL TABLET EXTENDED RELEASE 24 HOUR 1 daily NIFEDIPINE 26182622328 No Longer Active Harinder Hernandez DO Active FLOVENT HFA 110 MCG/ACT INHALATION AEROSOL 2 puffs inhaled b.i.d. FLUTICASONE PROPIONATE HFA 55672848610 Active Harinder Hernandez DO Active EPIPEN 2-BRUNA 0.3 MG/0.3ML INJECTION SOLUTION AUTO-INJECTOR 1 INJ NEEDED EPINEPHRINE 67641016697 Active Kortney Mccain Active PREDNISONE 20 MG ORAL TABLET 1 tab twice daily for 3 day, then one daily for three days PREDNISONE 66645066062 No Longer Active Harinder Hernandez DO Active PREDNISONE 20 MG ORAL TABLET 1 tablet twice daily for 2 days, then 1 tablet once daily for 2 days PREDNISONE 28559712084 No Longer Active Harinder Hernandez DO Active ASMANEX 120 METERED DOSES 220 MCG/INH INHALATION AEROSOL POWDER BREATH ACTIVATED 2 puffs orally twice daily MOMETASONE FUROATE 11656712613 Active Jeri Sosa LPN Active TOPIRAMATE 25 MG ORAL TABLET 1 tab po BID TOPIRAMATE 29097026019 No Longer Active Nettie Newberry APRN Active AMLODIPINE BESYLATE 5 MG ORAL TABLET Take 1 tab po daily AMLODIPINE BESYLATE 73580715194 No Longer Active Nettie Newberry APRN Active MECLIZINE HCL 25 MG ORAL TABLET 1 tablet three times daily for 3 days, then 1/ 2 tab three times daily for 3 days. MECLIZINE HCL 18086665931 No Longer Active Nettie Newberry APRN Active AMITRIPTYLINE HCL 25 MG ORAL TABLET 1 q hs prn AMITRIPTYLINE HCL 86120832961 No Longer Active Nettie Newberry APRN Active DILAUDID 2 MG ORAL TABLET Take 1/2 tab po every 4 hours as needed for pain HYDROMORPHONE HCL 31391820768 No Longer Active Nettie Newberry APRN Active CLOPIDOGREL BISULFATE 75 MG ORAL TABLET 1 tab by mouth once daily CLOPIDOGREL BISULFATE 90253605998 Active Meenu Aljeo LPN Active ATORVASTATIN CALCIUM 10 MG ORAL TABLET 1 at bedtime ATORVASTATIN CALCIUM 85371317684 Active Kortney Mccain Active LOVASTATIN 40 MG ORAL TABLET Take 1 tab po every hs LOVASTATIN 94327883314 No Longer Active Harinder Hernandez DO Active PREDNISONE 20 MG ORAL TABLET 2 tabs daily for 4 days, 1 tab daily for 4 days, 1/2 tab daily for 4 days PREDNISONE 95437450220 No Longer Active Harinder Hernandez DO Active LEVAQUIN 500 MG ORAL TABLET Take 1 tab po daily x 8 days LEVOFLOXACIN 91756407395 No Longer Active Harinder Hernandez DO Active VENTOLIN HFA 108 (90 Base) MCG/ACT INHALATION AEROSOL SOLUTION 2 -4 puffs four times a day PRN ALBUTEROL SULFATE 24743699627 No Longer Active Jeri Sosa LPN Active ACEBUTOLOL HCL 200 MG ORAL CAPSULE 1 cap in the morning and 2 caps in the evening ACEBUTOLOL HCL 49833901467 No Longer Active Harinder Hernandez DO Active CEFDINIR 300 MG ORAL CAPSULE take 1 cap po bid x 10 days CEFDINIR 02936126147 No Longer Active Harinder Hernandez DO Active LOVASTATIN 40 MG ORAL TABLET 1 pill by mouth nightly for cholesterol LOVASTATIN 96956218732 No Longer Active Nettie Newberry APRN Active NITROSTAT 0.4 MG SUBLINGUAL TABLET SUBLINGUAL 1 tab under tongueas needed for chest pain ( may take 3 total, 5 min apart, then call 911) NITROGLYCERIN 93603683001 No Longer Active Nettie Newberry APRN Active POTASSIUM CHLORIDE ER 10 MEQ ORAL CAPSULE EXTENDED RELEASE 1 capsule by mouth daily POTASSIUM CHLORIDE 53040649997 No Longer Active Nettie Newberry APRN Active TESSALON PERLES 100 MG ORAL CAPSULE 1 to 2 tablets by mouth 3 times daily as needed for cough BENZONATATE 65211148944 No Longer Active Nettie Newberry APRN Active PREDNISONE 20 MG ORAL TABLET 2 po qd x 5 days PREDNISONE 38122463056 No Longer Active Jae Morgan MD Active AZITHROMYCIN 250 MG ORAL TABLET 2 po qd x 1 day, then 1 po qd x 4 days 12/30 AZITHROMYCIN 80195187185 No Longer Active Jae Morgan MD Active PREDNISONE 20 MG ORAL TABLET 1 tab twice daily for 3 day, then one daily for three days PREDNISONE 31809275232 No Longer Active Jae Morgan MD Active SINGULAIR 10 MG ORAL TABLET 1 pill by mouth every evening for breathing. 2014 MONTELUKAST SODIUM 99718483252 Active Meenu Alejo LPN Active TYLENOL 325 MG ORAL TABLET 3 by mouth q4h as needed ACETAMINOPHEN 35822729345 Active Harinder Hernandez DO Active POTASSIUM CHLORIDE ER 10 MEQ ORAL TABLET EXTENDED RELEASE take 1 tab po daily POTASSIUM CHLORIDE 12022004192 No Longer Active Harinder Hernandez DO Active PREDNISONE 20 MG ORAL TABLET 1 TID x 2 days, then 1 BID x 3 days, then 1 Daily x 3 days, then stop PREDNISONE 53229196442 No Longer Active John Montemayor APRN Active LEVAQUIN 500 MG ORAL TABLET 1 tablet by mouth daily LEVOFLOXACIN 44171897977 No Longer Active John Montemayor APRN Active NEURONTIN 300 MG ORAL CAPSULE 1 cap by mouth three times daily for restless leg GABAPENTIN 62730902621 No Longer Active Harinder Hernandez DO Active BENZONATATE 100 MG ORAL CAPSULE 1 cap po TID PRN BENZONATATE 16308839539 No Longer Active Harinder Hernandez DO Active MONTELUKAST SODIUM 10 MG ORAL TABLET 1 tab po in the evening 2014 MONTELUKAST SODIUM 01685906059 No Longer Active Harinder Hernandez DO Active MUPIROCIN 2 % EXTERNAL OINTMENT apply to affected area BID x 14 days MUPIROCIN 67677277531 No Longer Active Harinder Hernandez DO Active TYLENOL EXTRA STRENGTH 500 MG ORAL TABLET as needed ACETAMINOPHEN 14440920897 No Longer Active Harinder Hrenandez DO Active PREDNISONE 10 MG ORAL TABLET 1 tab po daily PREDNISONE 54305108157 No Longer Active Harinder Hernandez DO Active PREDNISONE 20 MG ORAL TABLET 2 tabs daily for 4 days, 1 tab daily for 4 days, 1/2 tab daily for 4 days PREDNISONE 66596443283 No Longer Active Harinder Hernandez DO Active AZITHROMYCIN 250 MG ORAL TABLET 2 po qd x 1 day, then 1 po qd x 4 days 04/06 AZITHROMYCIN 22548766280 No Longer Active Harinder Hernandez DO Active PREDNISONE 20 MG ORAL TABLET 3 tabs today, then 1 tab twice daily for 3 day, then one daily for three days PREDNISONE 69996313091 No Longer Active Harinder Hernandez DO Active NIFEDIAC CC 30 MG ORAL TABLET EXTENDED RELEASE 24 HOUR 1 tablet daily for raynaud's syndrome NIFEDIPINE 15581481801 No Longer Active Tawnya Pardo MA Active AMBIEN 10 MG ORAL TABLET 1/2 tab by mouth at bedtime as needed for sleep 2013 ZOLPIDEM TARTRATE 19008784719 Active Meenu Alejo LPN Active CLONAZEPAM 1 MG ORAL TABLET 1 tablet at bedtime for insomnia and restless legs CLONAZEPAM 54501096515 Active Harinder Hernandez DO Active CLONAZEPAM 0.5 MG ORAL TABLET 1 tab po daily CLONAZEPAM 10478244330 No Longer Active Harinder Hernandez DO Active PREDNISONE 10 MG ORAL TABLET 1 tablet daily for COPD PREDNISONE 14803559606 Active Kortney Mccain Active PROAIR HFA 108 (90 Base) MCG/ACT INHALATION AEROSOL SOLUTION 2 puffs four times a day as needed ALBUTEROL SULFATE 22830955251 Active Harinder Hernandez DO Active FLOVENT HFA 110 MCG/ACT INHALATION AEROSOL 2 puffs inhaled b.i.d. FLUTICASONE PROPIONATE HFA 85160872939 Active Kortney Mccain Active ACIPHEX 20 MG ORAL TABLET DELAYED RELEASE 1 tab po daily RABEPRAZOLE SODIUM 01908511266 Active Kaylah Newberry Active CLONAZEPAM 0.5 MG ORAL TABLET 1 tab po daily CLONAZEPAM 0.5 MG ORAL TABLET 926034 CLONAZEPAM Inactive PREDNISONE 20 MG ORAL TABLET 3 tabs today, then 1 tab twice daily for 3 day, then one daily for three days PREDNISONE 20 MG ORAL TABLET 615516 PREDNISONE Inactive PREDNISONE 20 MG ORAL TABLET 2 tabs daily for 4 days, 1 tab daily for 4 days, 1/2 tab daily for 4 days PREDNISONE 20 MG ORAL TABLET 337068 PREDNISONE Inactive PREDNISONE 10 MG ORAL TABLET 1 tab po daily PREDNISONE 10 MG ORAL TABLET 178312 PREDNISONE Inactive TYLENOL EXTRA STRENGTH 500 MG ORAL TABLET as needed TYLENOL EXTRA STRENGTH 500 MG ORAL TABLET 352763 ACETAMINOPHEN Inactive MUPIROCIN 2 % EXTERNAL OINTMENT apply to affected area BID x 14 days MUPIROCIN 2 % EXTERNAL OINTMENT 060719 MUPIROCIN Inactive MONTELUKAST SODIUM 10 MG ORAL TABLET 1 tab po in the evening 2014 MONTELUKAST SODIUM 10 MG ORAL TABLET 126918 MONTELUKAST SODIUM Inactive BENZONATATE 100 MG ORAL CAPSULE 1 cap po TID PRN BENZONATATE 100 MG ORAL CAPSULE 313462 BENZONATATE Inactive NEURONTIN 300 MG ORAL CAPSULE 1 cap by mouth three times daily for restless leg NEURONTIN 300 MG ORAL CAPSULE 415740 GABAPENTIN Inactive LEVAQUIN 500 MG ORAL TABLET 1 tablet by mouth daily LEVAQUIN 500 MG ORAL TABLET 942699 LEVOFLOXACIN Inactive PREDNISONE 20 MG ORAL TABLET 1 TID x 2 days, then 1 BID x 3 days, then 1 Daily x 3 days, then stop PREDNISONE 20 MG ORAL TABLET 848689 PREDNISONE Inactive POTASSIUM CHLORIDE ER 10 MEQ ORAL TABLET EXTENDED RELEASE take 1 tab po daily POTASSIUM CHLORIDE ER 10 MEQ ORAL TABLET EXTENDED RELEASE POTASSIUM CHLORIDE Inactive PREDNISONE 20 MG ORAL TABLET 1 tab twice daily for 3 day, then one daily for three days PREDNISONE 20 MG ORAL TABLET 721034 PREDNISONE Inactive TESSALON PERLES 100 MG ORAL CAPSULE 1 to 2 tablets by mouth 3 times daily as needed for cough TESSALON PERLES 100 MG ORAL CAPSULE 622998 BENZONATATE Inactive POTASSIUM CHLORIDE ER 10 MEQ ORAL CAPSULE EXTENDED RELEASE 1 capsule by mouth daily POTASSIUM CHLORIDE ER 10 MEQ ORAL CAPSULE EXTENDED RELEASE POTASSIUM CHLORIDE Inactive NITROSTAT 0.4 MG SUBLINGUAL TABLET SUBLINGUAL 1 tab under tongueas needed for chest pain ( may take 3 total, 5 min apart, then call 911) NITROSTAT 0.4 MG SUBLINGUAL TABLET SUBLINGUAL 489130 NITROGLYCERIN Inactive LOVASTATIN 40 MG ORAL TABLET 1 pill by mouth nightly for cholesterol LOVASTATIN 40 MG ORAL TABLET 927103 LOVASTATIN Inactive CEFDINIR 300 MG ORAL CAPSULE take 1 cap po bid x 10 days CEFDINIR 300 MG ORAL CAPSULE 058245 CEFDINIR Inactive ACEBUTOLOL HCL 200 MG ORAL CAPSULE 1 cap in the morning and 2 caps in the evening ACEBUTOLOL HCL 200 MG ORAL CAPSULE 007292 ACEBUTOLOL HCL Inactive VENTOLIN HFA 108 (90 Base) MCG/ACT INHALATION AEROSOL SOLUTION 2 -4 puffs four times a day PRN VENTOLIN HFA 108 (90 Base) MCG/ ACT INHALATION AEROSOL SOLUTION ALBUTEROL SULFATE Inactive LEVAQUIN 500 MG ORAL TABLET Take 1 tab po daily x 8 days LEVAQUIN 500 MG ORAL TABLET 655031 LEVOFLOXACIN Inactive PREDNISONE 20 MG ORAL TABLET 2 tabs daily for 4 days, 1 tab daily for 4 days, 1/2 tab daily for 4 days PREDNISONE 20 MG ORAL TABLET 214553 PREDNISONE Inactive LOVASTATIN 40 MG ORAL TABLET Take 1 tab po every hs LOVASTATIN 40 MG ORAL TABLET 653669 LOVASTATIN Inactive DILAUDID 2 MG ORAL TABLET Take 1/2 tab po every 4 hours as needed for pain DILAUDID 2 MG ORAL TABLET 119868 HYDROMORPHONE HCL Inactive AMITRIPTYLINE HCL 25 MG ORAL TABLET 1 q hs prn AMITRIPTYLINE HCL 25 MG ORAL TABLET 513198 AMITRIPTYLINE HCL Inactive MECLIZINE HCL 25 MG ORAL TABLET 1 tablet three times daily for 3 days, then 1/ 2 tab three times daily for 3 days. MECLIZINE HCL 25 MG ORAL TABLET 100446 MECLIZINE HCL Inactive AMLODIPINE BESYLATE 5 MG ORAL TABLET Take 1 tab po daily AMLODIPINE BESYLATE 5 MG ORAL TABLET 239856 AMLODIPINE BESYLATE Inactive TOPIRAMATE 25 MG ORAL TABLET 1 tab po BID TOPIRAMATE 25 MG ORAL TABLET 352141 TOPIRAMATE Inactive PREDNISONE 20 MG ORAL TABLET 1 tablet twice daily for 2 days, then 1 tablet once daily for 2 days PREDNISONE 20 MG ORAL TABLET 930096 PREDNISONE Inactive PREDNISONE 20 MG ORAL TABLET 1 tab twice daily for 3 day, then one daily for three days PREDNISONE 20 MG ORAL TABLET 076245 PREDNISONE Inactive NIFEDIPINE ER 30 MG ORAL TABLET EXTENDED RELEASE 24 HOUR 1 daily NIFEDIPINE ER 30 MG ORAL TABLET EXTENDED RELEASE 24 HOUR NIFEDIPINE Inactive AMLODIPINE BESYLATE 5 MG ORAL TABLET 1 tablet by mouth daily 2016 AMLODIPINE BESYLATE 5 MG ORAL TABLET 838078 AMLODIPINE BESYLATE Inactive LASIX 20 MG ORAL TABLET 1 tablet by mouth every morning LASIX 20 MG ORAL TABLET 310489 FUROSEMIDE Inactive POTASSIUM CHLORIDE ER 10 MEQ ORAL CAPSULE EXTENDED RELEASE 1 capsule BID 2016 POTASSIUM CHLORIDE ER 10 MEQ ORAL CAPSULE EXTENDED RELEASE POTASSIUM CHLORIDE Inactive POTASSIUM CHLORIDE 20 MEQ ORAL PACKET 1 tab po q day POTASSIUM CHLORIDE 20 MEQ ORAL PACKET 5909977 POTASSIUM CHLORIDE Inactive AZITHROMYCIN 250 MG ORAL TABLET 2 po qd x 1 day, then 1 po qd x 4 days 04/06 AZITHROMYCIN 250 MG ORAL TABLET 578347 AZITHROMYCIN Inactive AZITHROMYCIN 250 MG ORAL TABLET 2 po qd x 1 day, then 1 po qd x 4 days 12/30 AZITHROMYCIN 250 MG ORAL TABLET 241201 AZITHROMYCIN Inactive PREDNISONE 20 MG ORAL TABLET 2 po qd x 5 days PREDNISONE 20 MG ORAL TABLET 520047 PREDNISONE Inactive Vital Signs Date Name Value [...] Panel - Chemistry sodium, serum 140 mmol/L 838-100 3837/07/13 potassium, serum 3.2 mmol/L 3.5-5.2 chloride, serum 103 mmol/L 98-107 carbon dioxide, venous blood 26.9 mmol/L 21.0-32.0 blood glucose 93 mg/dL 65-110 calcium, serum 9.2 mg/dL 8.5-10.1 urea nitrogen, blood 13 mg/dL 7-18 creatinine, serum 0.84 mg/dL 0.60-1.30 sodium, serum 140 mmol/L 408-228 8944/08/21 potassium, serum 3.8 mmol/L 3.5-5.2 chloride, serum [...] ... - Chemistry sodium, serum 141 mmol/L 787-728 0257/08/07 carbon dioxide, venous blood 34.0 mmol/L 21.0-32.0 [...] 1.40 mg/dL 0.00-1.00 cholesterol, serum 192 mg/dL 399-602 2540/10/19 triglyceride, serum, fasting 71 mg/dL 30-200 HDL cholesterol, serum 72 mg/dL 32-60 LDL cholesterol, serum 106 mg/dL 0-130 Lab Report: THEOPHYLLINE - Toxicology theophylline level, serum 3.1 ug/mL 10.0-20.0 Encounters Code Encounter Date Provider Facility CPT-62765 Level 4 Est. Patient 14:45:25 CDT Harinder Cr [facility] CPT-78885 Level 4 Est. Patient 09:15:13 CDT Harinder Cr [facility] CPT-42612 Level 3 Est. Patient 11:51:58 CDT Harinder Cr [facility] CPT-13886 Level 3 Est. Patient 11:30:05 CDT Harinder Cr [facility] CPT-79176 Level 4 Est. Patient 10:19:23 CDT Harinder Cr [facility] CPT-40774 Level 3 Est. Patient 09:58:58 CDT Harinder Cr [facility] CPT-39358 Level 3 Est. Patient 12:37:21 CDT Harinder Cr [facility] CPT-29234 Level 3 Est. Patient 18:37:17 CDT Harinder Cr [facility] CPT-87360 Level 4 Est. Patient 11:15:54 CDT Nettie Newberry APRN [facility] CPT-89785 Level 3 Est. Patient 16:42:24 CDT Harinder Hernandez [facility] CPT-96439 Level 3 Est. Patient 15:03:36 CDT Harinder Hernandez [facility] CPT-90132 Level 3 Est. Patient 15:03:20 CDT Harinder Hernandez [facility] CPT-31426 Level 3 Est. Patient 12:14:34 CDT Harinder Hernandez [facility] CPT-80467 Level 3 Est. Patient 13:47:15 CDT Harinder Hernandez [facility] CPT-79829 Level 3 Est. Patient 14:08:24 CDT Harinder Hernandez [facility] CPT-12723 Level 3 Est. Patient 10:07:15 CDT Harinder Hernandez [facility] CPT-52319 Level 3 Est. Patient 10:06:59 CDT Harinder Hernandez [facility] CPT-03164 Level 3 Est. Patient 15:53:29 CDT Jae Morgan MD [facility] CPT-05028 Level 3 Est. Patient 17:19:04 CDT Harinder Hernandez [facility] CPT-89472 Level 3 Est. Patient 11:13:01 CDT Harinder Hernandez [facility] CPT-03460 Level 3 Est. Patient 09:03:58 CDT Harinder Hernandez [facility] CPT-22582 Level 3 Est. Patient 14:46:45 ORANGE PEEL OPERATOR Harinder Cr David [facility] CPT-39440 Level 3 Est. Patient 09:35:49 ORANGE PEEL OPERATOR Harinder Hernandez [facility] CPT-45519 Level 3 Est. Patient 09:29:37 ORANGE PEEL OPERATOR Harinder Hernandez [facility] CPT-60223 Level 3 Est. Patient 15:51:07 CDT Harinder Hernandez [facility] CPT-75092 Level 3 Est. Patient 18:13:13 CDT Harinder Hernandez [facility] CPT-10312 Level 3 Est. Patient 10:44:19 CDT Harinder Hernandez [facility] CPT-44689 Level 4 Est. Patient 10:07:19 ORANGE PEEL OPERATOR Harinder Hernandez [facility] CPT-94271 Level 3 Est. Patient 15:59:32 ORANGE PEEL OPERATOR Harinder Cr [facility] Procedures Code Procedure Name Date Entry Date Standard Description CPT-07735 Abd compl w upright - XRAY USE ONLY 14:48:09 CDT 02/18 CPT-38876 Port a cath flush 13:46:05 CDT CPT-20857 Hip, complete, 2-3 views - XRAY USE ONLY 10:28:40 CDT CPT-65332 BMP - LAB USE ONLY 16:45:09 ORANGE PEEL OPERATOR CPT-44297 Port a cath flush 12:00:13 ORANGE PEEL OPERATOR CPT-TCMM Transitional Care Mgmt-Moderate 11:20:16 ORANGE PEEL OPERATOR CPT-70261 First Vx - Ix admin for Medicare patients 17:35:15 CDT CPT-40253 Fluzone Preservative Free Intramuscular Suspension 17:35 :15 CDT CPT-00339 Microalbumin - LAB USE ONLY 11:52:05 CDT CPT-TCMM Transitional Care Mgmt-Moderate 11:33:57 CDT CPT-55397 No Charge Offi Visit 14:11:29 CDT CPT-51407 Magnesium - LAB USE ONLY 10:45:44 CDT CPT-30914 Lipid - LAB USE ONLY 10:45:44 CDT CPT-58146 CBC - LAB USE ONLY 10:45:44 CDT CPT-66241 Venipuncture Draw Fee 10:45:43 CDT CPT-01001 Venipuncture Draw Fee 18:21:27 CDT CPT-JTINJ Asp/Joint Injection 18:38:04 CDT CPT-11156 Immunization Each Additional Inj 17:38:04 CDT CPT-04809 Immunization Single Admin 17:38:04 CDT CPT-28939 Prevnar 13 17:38:04 CDT CPT-27403 Fluzone Quadrivalent preservative free (>=3yrs.) 17:38: 04 CDT CPT-70902 No Charge Offi Visit 11:14:03 CDT CPT-97969 Chest 2V Frontal and Lat 14:00:18 CDT CPT-OV Office Visit 16:10:28 CDT CPT-JTINJ Asp/Joint Injection 09:03:57 CDT CPT-Cryo Cryotherapy 09:35:49 ORANGE PEEL OPERATOR CPT-JTINJ Asp/Joint Injection 09:34:45 ORANGE PEEL OPERATOR CPT-J2930 Solu Medrol 125 mg (Methyl Prednisolone Sodium Succinate) 20:37:27 CDT CPT-32874 Abx/Therapy Injection 20:37:27 CDT CPT-65288 Port a cath flush 08:15:51 CDT CPT-42052 Port a cath flush 09:54:16 CDT CPT-85275 Port a cath flush 09:38:02 CDT CPT-08960 Port a cath flush 11:00:27 ORANGE PEEL OPERATOR
--- OUTSIDE RECORDS SUMMARY | 2017-12-29 05:41 | XMS REPORT | Clinical Summary ---
[...] MG/0.3ML INJ SOAJ 1 INJ NEEDED EPINEPHRINE [id number] Active Tawnya Pardo MA Active PREDNISONE 20 MG TAB 1 tab twice daily for 3 day, then one daily for three days PREDNISONE 45413831901 No Longer Active Harinder Hernandez DO Active PREDNISONE 20 MG TAB 1 tablet twice daily for 2 days, then 1 tablet once daily for 2 days PREDNISONE 00113248995 No Longer Active Harinder Hernandez DO Active ASMANEX 120 METERED DOSES 220 MCG/INH INH AEPB 2 puffs orally twice daily MOMETASONE FUROATE 34044616178 Active Jeri Sosa RPT,RMA Active NIFEDIPINE ER 30 MG ORAL [id number] 1 daily NIFEDIPINE 00195540017 Active Tawnya Pardo MA Active TOPIRAMATE 25 MG TABS 1 tab po BID TOPIRAMATE 74359190870 No Longer Active Nettie Newberry APRN Active AMLODIPINE BESYLATE 5 MG ORAL TABS Take 1 tab po daily AMLODIPINE BESYLATE 53197869351 No Longer Active Nettie Newberry APRN Active MECLIZINE HCL 25 MG TAB 1 tablet three times daily for 3 days, then 1/2 tab three times daily for 3 days. MECLIZINE HCL 66884809983 No Longer Active Nettie Newberry APRN Active AMITRIPTYLINE HCL 25 MG ORAL TABS 1 q hs prn AMITRIPTYLINE HCL 23608607598 No Longer Active Nettie Newberry APRN Active DILAUDID 2 MG ORAL TABS Take 1/2 tab po every 4 hours as needed for pain 2014 HYDROMORPHONE HCL 06438762104 No Longer Active Nettie Newberry APRN Active CLOPIDOGREL BISULFATE 75 MG ORAL TABS 1 tab by mouth once daily CLOPIDOGREL BISULFATE 21418931298 Active Tawnya Pardo MA Active ATORVASTATIN CALCIUM 10 MG ORAL TABS 1 at bedtime ATORVASTATIN CALCIUM 94261754829 Active Tawnya Pardo MA Active LOVASTATIN 40 MG ORAL TABS Take 1 tab po every hs LOVASTATIN 11398151796 No Longer Active Harinder Hernandez DO Active PREDNISONE 20 MG TAB 2 tabs daily for 4 days, 1 tab daily for 4 days, 1/2 tab daily for 4 days PREDNISONE 20274366293 No Longer Active Harinder Hernandez DO Active LEVAQUIN 500 MG ORAL TABS Take 1 tab po daily x 8 days LEVOFLOXACIN 71996085425 No Longer Active Harinder Hernandez DO Active VENTOLIN HFA 108 (90 BASE) MCG/ACT AERS 2 -4 puffs four times a day PRN 2013 ALBUTEROL SULFATE 96177810681 No Longer Active Jeri Sosa RPT,RMA Active ACEBUTOLOL HCL 200 MG CAPS 1 cap in the morning and 2 caps in the evening ACEBUTOLOL HCL 89861187034 No Longer Active Harinder Hernandez DO Active CEFDINIR 300 MG ORAL CAPS take 1 cap po bid x 10 days CEFDINIR 02420076999 No Longer Active Harinder Hernandez DO Active LOVASTATIN 40 MG TABS 1 pill by mouth nightly for cholesterol LOVASTATIN 39835234030 No Longer Active Nettie Newberry APRN Active NITROSTAT 0.4 MG SUBL 1 tab under tongueas needed for chest pain ( may take 3 total, 5 min apart, then call 911) NITROGLYCERIN 04948576247 No Longer Active Nettie Newberry APRN Active POTASSIUM CHLORIDE CR 10 MEQ CPCR 1 capsule by mouth daily 02/14 POTASSIUM CHLORIDE 89722073348 No Longer Active Nettie Newberry APRN Active TESSALON PERLES 100 MG CAP 1 to 2 tablets by mouth 3 times daily as needed for cough BENZONATATE 07071374817 No Longer Active Nettie Newberry APRN Active THEOPHYLLINE ER 200 MG ORAL [id number] Take 1 tab every 12 hours THEOPHYLLINE 10092220314 Active Tawnya Pardo MA Active PREDNISONE 20 MG TAB 2 po qd x 5 days PREDNISONE 63174152711 No Longer Active Jae Morgan MD Active AZITHROMYCIN 250 MG TABS 2 po qd x 1 day, then 1 po qd x 4 days AZITHROMYCIN 31345286551 No Longer Active Jae Morgan MD Active PREDNISONE 20 MG TAB 1 tab twice daily for 3 day, then one daily for three days PREDNISONE 78785016412 No Longer Active Jae Morgan MD Active SINGULAIR 10 MG TABS 1 pill by mouth every evening for breathing. MONTELUKAST SODIUM 22478447098 Active Tawnya Pardo MA Active TYLENOL 325 MG TAB 3 by mouth q4h as needed ACETAMINOPHEN 41024672460 Active Harinder Hernandez DO Active POTASSIUM CHLORIDE ER 10 MEQ CR-TABS take 1 tab po daily POTASSIUM CHLORIDE 23360579306 No Longer Active Harinder Hernandez DO Active PREDNISONE 20 MG TAB 1 TID x 2 days, then 1 BID x 3 days, then 1 Daily x 3 days, then stop PREDNISONE 10211112480 No Longer Active John Montemayor APRN Active LEVAQUIN 500 MG TAB 1 tablet by mouth daily LEVOFLOXACIN 39274309200 No Longer Active Jillkvng Montemayor APRN Active NEURONTIN 300 MG CAP 1 cap by mouth three times daily for restless leg 06/22 GABAPENTIN 86400742413 No Longer Active Harinder Hernandez DO Active BENZONATATE 100 MG CAPS 1 cap po TID PRN BENZONATATE 24775140894 No Longer Active Harinder Hernandez DO Active MONTELUKAST SODIUM 10 MG TABS 1 tab po in the evening MONTELUKAST SODIUM 17219855034 No Longer Active Harinder Hernandez DO Active MUPIROCIN 2 % OINT apply to affected area BID x 14 days MUPIROCIN 06204337572 No Longer Active Harinder Hernandez DO Active TYLENOL EXTRA STRENGTH 500 MG TABS as needed ACETAMINOPHEN 79022941586 No Longer Active Harinder Hernandez DO Active PREDNISONE 10 MG TABS 1 tab po daily PREDNISONE 42922679032 No Longer Active Harinder Hernandez DO Active PREDNISONE 20 MG TAB 2 tabs daily for 4 days, 1 tab daily for 4 days, 1/2 tab daily for 4 days PREDNISONE 94096265473 No Longer Active Harinder Hernandez DO Active AZITHROMYCIN 250 MG TABS 2 po qd x 1 day, then 1 po qd x 4 days AZITHROMYCIN 51163339358 No Longer Active Harinder Hernandez DO Active PREDNISONE 20 MG TAB 3 tabs today, then 1 tab twice daily for 3 day, then one daily for three days PREDNISONE 42053382620 No Longer Active Harinder Hernandez DO Active NIFEDIAC CC 30 MG [id number] 1 tablet daily for raynaud's syndrome NIFEDIPINE 07440065197 No Longer Active Tawnya Pardo MA Active AMBIEN 10 MG TAB 1/2 tab by mouth at bedtime as needed for sleep ZOLPIDEM TARTRATE 81271226158 Active Harinder Hernandez DO Active CLONAZEPAM 1 MG TABS 1 tablet at bedtime for insomnia and restless legs 09/14 CLONAZEPAM 99912859498 Active Kaylah Newberry Active CLONAZEPAM 0.5 MG TABS 1 tab po daily CLONAZEPAM 12107233774 No Longer Active Harinder Hernandez DO Active PREDNISONE 10 MG TAB 1 tablet daily for COPD PREDNISONE 60624712956 Active Tawnya Pardo MA Active PROAIR HFA 108 (90 BASE) MCG/ACT AERS 2 puffs four times a day as needed 2012 ALBUTEROL SULFATE 87387880140 Active Tawnya Pardo MA Active FLOVENT HFA 110 MCG/ACT AERO 2 puffs inhaled b.i.d. FLUTICASONE PROPIONATE HFA 38045968890 Active Tawnya Pardo MA Active ACIPHEX 20 MG TBEC 1 tab po daily RABEPRAZOLE SODIUM 57919956365 Active Tawnya Pardo MA Active CLONAZEPAM 0.5 MG TABS 1 tab po daily CLONAZEPAM 0.5 MG TABS 633065 CLONAZEPAM Inactive PREDNISONE 20 MG TAB 3 tabs today, then 1 tab twice daily for 3 day, then one daily for three days PREDNISONE 20 MG TAB 758350 PREDNISONE Inactive PREDNISONE 20 MG TAB 2 tabs daily for 4 days, 1 tab daily for 4 days, 1/2 tab daily for 4 days PREDNISONE 20 MG TAB 540647 PREDNISONE Inactive PREDNISONE 10 MG TABS 1 tab po daily PREDNISONE 10 MG TABS 199988 PREDNISONE Inactive TYLENOL EXTRA STRENGTH 500 MG TABS as needed TYLENOL EXTRA STRENGTH 500 MG TABS 594745 ACETAMINOPHEN Inactive MUPIROCIN 2 % OINT apply to affected area BID x 14 days MUPIROCIN 2 % OINT 522017 MUPIROCIN Inactive MONTELUKAST SODIUM 10 MG TABS 1 tab po in the evening MONTELUKAST SODIUM 10 MG TABS 482497 MONTELUKAST SODIUM Inactive BENZONATATE 100 MG CAPS 1 cap po TID PRN BENZONATATE 100 MG CAPS 942583 BENZONATATE Inactive NEURONTIN 300 MG CAP 1 cap by mouth three times daily for restless leg 06/22 NEURONTIN 300 MG CAP 223679 GABAPENTIN Inactive LEVAQUIN 500 MG TAB 1 tablet by mouth daily LEVAQUIN 500 MG TAB 984559 LEVOFLOXACIN Inactive PREDNISONE 20 MG TAB 1 TID x 2 days, then 1 BID x 3 days, then 1 Daily x 3 days, then stop PREDNISONE 20 MG TAB 507721 PREDNISONE Inactive POTASSIUM CHLORIDE ER 10 MEQ CR-TABS take 1 tab po daily POTASSIUM CHLORIDE ER 10 MEQ CR-TABS POTASSIUM CHLORIDE Inactive PREDNISONE 20 MG TAB 1 tab twice daily for 3 day, then one daily for three days PREDNISONE 20 MG TAB 381393 PREDNISONE Inactive TESSALON PERLES 100 MG CAP 1 to 2 tablets by mouth 3 times daily as needed for cough TESSALON PERLES 100 MG CAP 186766 BENZONATATE Inactive POTASSIUM CHLORIDE CR 10 MEQ [...] nightly for cholesterol LOVASTATIN 40 MG TABS 855331 LOVASTATIN Inactive CEFDINIR 300 MG ORAL CAPS take 1 cap po bid x 10 days CEFDINIR 300 MG ORAL CAPS 949186 CEFDINIR Inactive ACEBUTOLOL HCL 200 MG CAPS 1 cap in the morning and 2 caps in the evening ACEBUTOLOL HCL 200 MG CAPS 456144 ACEBUTOLOL HCL Inactive VENTOLIN HFA 108 (90 BASE) MCG/ACT AERS 2 -4 puffs four times a day PRN 2013 VENTOLIN HFA 108 (90 BASE) MCG/ACT AERS ALBUTEROL SULFATE Inactive LEVAQUIN 500 MG ORAL TABS Take 1 tab po daily x 8 days LEVAQUIN 500 MG ORAL TABS 035790 LEVOFLOXACIN Inactive PREDNISONE 20 MG TAB 2 tabs daily for 4 days, 1 tab daily for 4 days, 1/2 tab daily for 4 days PREDNISONE 20 MG TAB 488413 PREDNISONE Inactive LOVASTATIN 40 MG ORAL TABS Take 1 tab po every hs LOVASTATIN 40 MG ORAL TABS 801200 LOVASTATIN Inactive DILAUDID 2 MG ORAL TABS Take 1/2 tab po every 4 hours as needed for pain 2014 DILAUDID 2 MG ORAL TABS 567991 HYDROMORPHONE HCL Inactive AMITRIPTYLINE HCL 25 MG ORAL TABS 1 q hs prn AMITRIPTYLINE HCL 25 MG ORAL TABS 891583 AMITRIPTYLINE HCL Inactive MECLIZINE HCL 25 MG TAB 1 tablet three times daily for 3 days, then 1/2 tab three times daily for 3 days. MECLIZINE HCL 25 MG TAB 799904 MECLIZINE HCL Inactive AMLODIPINE BESYLATE 5 MG ORAL TABS Take 1 tab po daily AMLODIPINE BESYLATE 5 MG ORAL TABS 144672 AMLODIPINE BESYLATE Inactive TOPIRAMATE 25 MG TABS 1 tab po BID TOPIRAMATE 25 MG TABS 490131 TOPIRAMATE Inactive PREDNISONE 20 MG TAB 1 tablet twice daily for 2 days, then 1 tablet once daily for 2 days PREDNISONE 20 MG TAB 536652 PREDNISONE Inactive PREDNISONE 20 MG TAB 1 tab twice daily for 3 day, then one daily for three days PREDNISONE 20 MG TAB 564225 PREDNISONE Inactive AZITHROMYCIN 250 MG TABS 2 po qd x 1 day, then 1 po qd x 4 days AZITHROMYCIN 250 MG TABS 4296931 AZITHROMYCIN Inactive AZITHROMYCIN 250 MG TABS 2 po qd x 1 day, then 1 po qd x 4 days AZITHROMYCIN 250 MG TABS 0599038 AZITHROMYCIN Inactive PREDNISONE 20 MG TAB 2 po qd x 5 days PREDNISONE 20 MG TAB 023351 PREDNISONE Inactive Vital Signs Date Name Value [...] Panel - Chemistry sodium, serum 138 mmol/L 943-197 8652/09/24 potassium, serum 3.5 mmol/L 3.5-5.2 chloride, serum [...] Magnesium - Chemistry cholesterol, serum 180 mg/dL 576-158 0383/08/08 triglyceride, serum, fasting 92 mg/dL 30-200 HDL cholesterol, serum 66 mg/dL 32-96 LDL cholesterol, serum 96 mg/dL 0-130 sodium, serum 142 mmol/L 815-065 1402/08/08 carbon dioxide, venous blood 27.4 mmol/L 21.0-32.0 [...] 10.0-20.0 Encounters Code Encounter Date Provider Facility CPT-40148 Level 3 Est. Patient 09:58:58 CDT Harinder Cr [facility] CPT-03870 Level 3 Est. Patient 12:37:21 CDT Harinder Cr [facility] CPT-41943 Level 3 Est. Patient 18:37:17 CDT Harinder Cr [facility] CPT-32337 Level 4 Est. Patient 11:15:54 CDT Nettie Newberry [facility] CPT-71245 Level 3 Est. Patient 16:42:24 CDT Harinder Cr [facility] CPT-02138 Level 3 Est. Patient 15:03:36 CDT Harinder Cr [facility] CPT-55659 Level 3 Est. Patient 15:03:20 CDT Harinder Cr [facility] CPT-62550 Level 3 Est. Patient 12:14:34 CDT Harinder Cr [facility] CPT-87786 Level 3 Est. Patient 13:47:15 CDT Harinder Shaye [facility] CPT-66995 Level 3 Est. Patient 14:08:24 CDT Harinder Shaye [facility] CPT-57103 Level 3 Est. Patient 10:07:15 CDT Harinder Cr [facility] CPT-63689 Level 3 Est. Patient 10:06:59 CDT Harinder Cr [facility] CPT-28700 Level 3 Est. Patient 15:53:29 CDT Jae Morgan MD [facility] CPT-81060 Level 3 Est. Patient 17:19:04 CDT Harinder Hernandez [facility] CPT-06261 Level 3 Est. Patient 11:13:01 CDT Harinder Cr [facility] CPT-65179 Level 3 Est. Patient 09:03:58 CDT Harinder Hernandez [facility] CPT-06793 Level 3 Est. 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 Patient 09:35:49 BROACHING MACHINE SET UP OPERATOR Harinder Hernandez [facility] CPT-19893 Level 3 Est. Patient 09:29:37 BROACHING MACHINE SET UP OPERATOR Harinder Cr [facility] CPT-26798 Level 3 Est. Patient 15:51:07 CDT Harinder Hernandez [facility] CPT-27553 Level 3 Est. Patient 18:13:13 CDT Harinder Cr [facility] CPT-08232 Level 3 Est. Patient 10:44:19 CDT Harinder Cr [facility] CPT-31110 Level 4 Est. 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 MACHINE SET UP OPERATOR Harinder Cr [facility] Procedures Code Procedure Name Date Entry Date Standard Description CPT-TCMM Transitional Care Mgmt-Moderate 11:33:57 CDT CPT-35047 No Charge Offi Visit 14:11:29 CDT CPT-81356 Magnesium - LAB USE ONLY 10:45:44 CDT CPT-69757 Lipid - LAB USE ONLY 10:45:44 CDT CPT-16266 CBC - LAB USE ONLY 10:45:44 CDT CPT-92599 Venipuncture Draw Fee 10:45:43 CDT CPT-66005 Venipuncture Draw Fee 18:21:27 CDT CPT-JTINJ Asp/Joint Injection 18:38:04 CDT CPT-29270 Immunization Each Additional Inj 17:38:04 CDT CPT-77151 Immunization Single Admin 17:38:04 CDT CPT-45279 Prevnar 13 17:38:04 CDT CPT-25198 Fluzone Quadrivalent preservative free (>=3yrs.) 17:38: 04 CDT CPT-19781 No Charge Offi Visit 11:14:03 CDT CPT-79434 Chest 2V Frontal and Lat 14:00:18 CDT CPT-OV Office Visit 16:10:28 CDT CPT-JTINJ Asp/Joint Injection 09:03:57 CDT CPT-Cryo Cryotherapy 09:35:49 BROACHING MACHINE SET UP OPERATOR CPT-JTINJ Asp/Joint Injection 09:34:45 BROACHING MACHINE SET UP OPERATOR CPT-J2930 Solu Medrol 125 mg (Methyl Prednisolone Sodium Succinate) 20:37:27 CDT CPT-84974 Abx/Therapy Injection 20:37:27 CDT CPT-31400 Port a cath flush 08:15:51 CDT CPT-52256 Port a cath flush 09:54:16 CDT CPT-49883 Port a cath flush 09:38:02 CDT CPT-61748 Port a cath flush 11:00:27 BROACHING MACHINE SET UP OPERATOR
--- OUTSIDE RECORDS SUMMARY | 2017-12-29 05:43 | XMS REPORT | Clinical Summary ---
Author Author Admin, QIE Organization [facility] Address Unknown Phone Unavailable Allergies, Adverse [...] TAB 1 tablet by mouth daily SPIRONOLACTONE [id number] Prince Pimentel Active POTASSIUM CHLORIDE CR 10 MEQ CPCR 1 capsule BID POTASSIUM CHLORIDE 81568605033 Prince Mccain Active FLUOXETINE HCL 10 MG ORAL CAPS 1 po qd for depression/anxiety FLUOXETINE HCL 21623431458 Active Harinder Hernandez DO Active VOLTAREN 1 % GEL apply q 6-8 hour to left arm as needed for pain DICLOFENAC SODIUM 44882500624 Prince Hernandez DO Active LASIX 20 MG TAB 1 tablet by mouth every morning FUROSEMIDE 22787172771 Prince Mccain Active POTASSIUM CHLORIDE 20 MEQ ORAL PACK 1 tab po BID POTASSIUM CHLORIDE 36186586118 Prince Mccain Active ALBUTEROL SULFATE 0.083 % NEBU SOLN 1 vial neb q 4hrs for severe asthma. 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 FLUTICASONE PROPIONATE HFA 72827784101 Active Harinder Hernandez DO Active EPIPEN 2-BRUNA 0.3 MG/0.3ML INJ SOAJ 1 INJ NEEDED EPINEPHRINE 25092900442 Active Harinder Hernandez DO Active PREDNISONE 20 MG TAB 1 tab twice daily for 3 day, then one daily for three days PREDNISONE 88475205131 No Longer Active Harinder Hernandez DO Active PREDNISONE 20 MG TAB 1 tablet twice daily for 2 days, then 1 tablet once daily for 2 days PREDNISONE 84100363451 No Longer Active Harinder Hernandez DO Active ASMANEX 120 METERED DOSES 220 MCG/INH INH AEPB 2 puffs orally twice daily MOMETASONE FUROATE 01417797098 Active Jeri Sosa LPN Active TOPIRAMATE 25 MG TABS 1 tab po BID TOPIRAMATE 94692313360 No Longer Active Nettie Newberry APRN Active AMLODIPINE BESYLATE 5 MG ORAL TABS Take 1 tab po daily AMLODIPINE BESYLATE 89172243769 No Longer Active Nettie Newberry APRN Active MECLIZINE HCL 25 MG TAB 1 tablet three times daily for 3 days, then 1/2 tab three times daily for 3 days. MECLIZINE HCL 47901501966 No Longer Active Nettie Newberry APRN Active AMITRIPTYLINE HCL 25 MG ORAL TABS 1 q hs prn AMITRIPTYLINE HCL 01166639009 No Longer Active Nettie Newberry APRN Active DILAUDID 2 MG ORAL TABS Take 1/2 tab po every 4 hours as needed for pain 2014 HYDROMORPHONE HCL 19178431025 No Longer Active Nettie Newberry APRN Active CLOPIDOGREL BISULFATE 75 MG ORAL TABS 1 tab by mouth once daily CLOPIDOGREL BISULFATE 49286783815 Active Harinder Hernandez DO Active ATORVASTATIN CALCIUM 10 MG ORAL TABS 1 at bedtime ATORVASTATIN CALCIUM 21553890206 Active Tawnya Pardo MA Active LOVASTATIN 40 MG ORAL TABS Take 1 tab po every hs LOVASTATIN 27396992215 No Longer Active Harinder Hernandez DO Active PREDNISONE 20 MG TAB 2 tabs daily for 4 days, 1 tab daily for 4 days, 1/2 tab daily for 4 days PREDNISONE 92795054769 No Longer Active Harinder Hernandez DO Active LEVAQUIN 500 MG ORAL TABS Take 1 tab po daily x 8 days LEVOFLOXACIN 98140224542 No Longer Active Harinder Hernandez DO Active VENTOLIN HFA 108 (90 BASE) MCG/ACT AERS 2 -4 puffs four times a day PRN 2013 ALBUTEROL SULFATE 01127271023 No Longer Active Jeri Sosa LPN Active ACEBUTOLOL HCL 200 MG CAPS 1 cap in the morning and 2 caps in the evening ACEBUTOLOL HCL 63396610272 No Longer Active Harinder Hernandez DO Active CEFDINIR 300 MG ORAL CAPS take 1 cap po bid x 10 days CEFDINIR 36015087372 No Longer Active Harinder Hernandez DO Active LOVASTATIN 40 MG TABS 1 pill by mouth nightly for cholesterol LOVASTATIN 77050785944 No Longer Active Nettie Newberry APRN Active NITROSTAT 0.4 MG SUBL 1 tab under tongueas needed for chest pain ( may take 3 total, 5 min apart, then call 911) NITROGLYCERIN 56274028199 No Longer Active Nettie Newberry MAHENDRA Active POTASSIUM CHLORIDE CR 10 MEQ CPCR 1 capsule by mouth daily 02/14 POTASSIUM CHLORIDE 91986451166 No Longer Active Nettie Newberry MAHENDRA Active TESSALON PERLES 100 MG CAP 1 to 2 tablets by mouth 3 times daily as needed for cough BENZONATATE 30381571077 No Longer Active Nettie Newberry MAHENDRA Active THEOPHYLLINE ER 200 MG ORAL [id number] Take 1 tab every 12 hours THEOPHYLLINE 39499193644 Active Harinder Hernandez DO Active PREDNISONE 20 MG TAB 2 po qd x 5 days PREDNISONE 91269245715 No Longer Active Jae Morgan MD Active AZITHROMYCIN 250 MG TABS 2 po qd x 1 day, then 1 po qd x 4 days AZITHROMYCIN 14716709829 No Longer Active Jae Morgan MD Active PREDNISONE 20 MG TAB 1 tab twice daily for 3 day, then one daily for three days PREDNISONE 39554535026 No Longer Active Jae Morgan MD Active SINGULAIR 10 MG TABS 1 pill by mouth every evening for breathing. MONTELUKAST SODIUM 88327288935 Active Tawnya Pardo MA Active TYLENOL 325 MG TAB 3 by mouth q4h as needed ACETAMINOPHEN 22994147232 Active Harinder Hernandez DO Active POTASSIUM CHLORIDE ER 10 MEQ CR-TABS take 1 tab po daily POTASSIUM CHLORIDE 56843657507 No Longer Active Harinder Hernandez DO Active PREDNISONE 20 MG TAB 1 TID x 2 days, then 1 BID x 3 days, then 1 Daily x 3 days, then stop PREDNISONE 63187822456 No Longer Active Jillkvng Frashai MCCRAY Active LEVAQUIN 500 MG TAB 1 tablet by mouth daily LEVOFLOXACIN 57424151768 No Longer Active Jillina Frazell [employer] Active NEURONTIN 300 MG CAP 1 cap by mouth three times daily for restless leg 06/22 GABAPENTIN 62850280564 No Longer Active Harinder Hernandez DO Active BENZONATATE 100 MG CAPS 1 cap po TID PRN BENZONATATE 85714219477 No Longer Active Harinder Hernandez DO Active MONTELUKAST SODIUM 10 MG TABS 1 tab po in the evening MONTELUKAST SODIUM 62852235256 No Longer Active Harinder Hernandez DO Active MUPIROCIN 2 % OINT apply to affected area BID x 14 days MUPIROCIN 76333279187 No Longer Active Harinder Hernandez DO Active TYLENOL EXTRA STRENGTH 500 MG TABS as needed ACETAMINOPHEN 22266081003 No Longer Active Harinder Hernandez DO Active PREDNISONE 10 MG TABS 1 tab po daily PREDNISONE 28090735225 No Longer Active Harinder Hernandez DO Active PREDNISONE 20 MG TAB 2 tabs daily for 4 days, 1 tab daily for 4 days, 1/2 tab daily for 4 days PREDNISONE 29498616748 No Longer Active Harinder Hernandez DO Active AZITHROMYCIN 250 MG TABS 2 po qd x 1 day, then 1 po qd x 4 days AZITHROMYCIN 06601241621 No Longer Active Harinder Hernandez DO Active PREDNISONE 20 MG TAB 3 tabs today, then 1 tab twice daily for 3 day, then one daily for three days PREDNISONE 30634009103 No Longer Active Harinder Hernandez DO Active NIFEDIAC CC 30 MG [id number] 1 tablet daily for raynaud's syndrome NIFEDIPINE 11867859822 No Longer Active Tawnya Pardo MA Active AMBIEN 10 MG TAB 1/2 tab by mouth at bedtime as needed for sleep ZOLPIDEM TARTRATE 52114148767 Active Harinder Hernandez DO Active CLONAZEPAM 1 MG TABS 1 tablet at bedtime for insomnia and restless legs 09/14 CLONAZEPAM 35889904506 Active Harinder Hernandez DO Active CLONAZEPAM 0.5 MG TABS 1 tab po daily CLONAZEPAM 57806041233 No Longer Active Harinder Hernandez DO Active PREDNISONE 10 MG TAB 1 tablet daily for COPD PREDNISONE 22583771971 Active Harinder Hernandez DO Active PROAIR HFA 108 (90 BASE) MCG/ACT AERS 2 puffs four times a day as needed 2012 ALBUTEROL SULFATE 70708108722 Active Harinder Hernandez DO Active FLOVENT HFA 110 MCG/ACT AERO 2 puffs inhaled b.i.d. FLUTICASONE PROPIONATE HFA 96516285285 Active Kortney Mccain Active ACIPHEX 20 MG TBEC 1 tab po daily RABEPRAZOLE SODIUM 09816470126 Active Kaylah Newberry Active CLONAZEPAM 0.5 MG TABS 1 tab po daily CLONAZEPAM 0.5 MG TABS 702286 CLONAZEPAM Inactive PREDNISONE 20 MG TAB 3 tabs today, then 1 tab twice daily for 3 day, then one daily for three days PREDNISONE 20 MG TAB 221954 PREDNISONE Inactive PREDNISONE 20 MG TAB 2 tabs daily for 4 days, 1 tab daily for 4 days, 1/2 tab daily for 4 days PREDNISONE 20 MG TAB 212110 PREDNISONE Inactive PREDNISONE 10 MG TABS 1 tab po daily PREDNISONE 10 MG TABS 509557 PREDNISONE Inactive TYLENOL EXTRA STRENGTH 500 MG TABS as needed TYLENOL EXTRA STRENGTH 500 MG TABS 523515 ACETAMINOPHEN Inactive MUPIROCIN 2 % OINT apply to affected area BID x 14 days MUPIROCIN 2 % OINT 871302 MUPIROCIN Inactive MONTELUKAST SODIUM 10 MG TABS 1 tab po in the evening MONTELUKAST SODIUM 10 MG TABS 20010818 MONTELUKAST SODIUM Inactive BENZONATATE 100 MG CAPS 1 cap po TID PRN BENZONATATE 100 MG CAPS 915626 BENZONATATE Inactive NEURONTIN 300 MG CAP 1 cap by mouth three times daily for restless leg 2013/ 12/09 NEURONTIN 300 MG CAP 754327 GABAPENTIN Inactive LEVAQUIN 500 MG TAB 1 tablet by mouth daily LEVAQUIN 500 MG TAB 19980216 LEVOFLOXACIN Inactive PREDNISONE 20 MG TAB 1 TID x 2 days, then 1 BID x 3 days, then 1 Daily x 3 days, then stop PREDNISONE 20 MG TAB 845080 PREDNISONE Inactive POTASSIUM CHLORIDE ER 10 MEQ CR-TABS take 1 tab po daily POTASSIUM CHLORIDE ER 10 MEQ CR-TABS POTASSIUM CHLORIDE Inactive PREDNISONE 20 MG TAB 1 tab twice daily for 3 day, then one daily for three days PREDNISONE 20 MG TAB 997135 PREDNISONE Inactive TESSALON PERLES 100 MG CAP 1 to 2 tablets by mouth 3 times daily as needed for cough TESSALON PERLES 100 MG CAP 965370 BENZONATATE Inactive POTASSIUM CHLORIDE CR 10 MEQ CPCR 1 capsule by mouth daily 02/14 POTASSIUM CHLORIDE CR 10 MEQ CPCR POTASSIUM CHLORIDE Inactive NITROSTAT 0.4 MG SUBL 1 tab under tongueas needed for chest pain ( may take 3 total, 5 min apart, then call 911) NITROSTAT 0.4 MG SUBL 578851 NITROGLYCERIN Inactive LOVASTATIN 40 MG TABS 1 pill by mouth nightly for cholesterol LOVASTATIN 40 MG TABS 813249 LOVASTATIN Inactive CEFDINIR 300 MG ORAL CAPS take 1 cap po bid x 10 days CEFDINIR 300 MG ORAL CAPS 720192 CEFDINIR Inactive ACEBUTOLOL HCL 200 MG CAPS 1 cap in the morning and 2 caps in the evening ACEBUTOLOL HCL 200 MG CAPS 102154 ACEBUTOLOL HCL Inactive VENTOLIN HFA 108 (90 [...] for 4 days PREDNISONE 20 MG TAB 310579 PREDNISONE Inactive LOVASTATIN 40 MG ORAL TABS Take 1 tab po every hs LOVASTATIN 40 MG ORAL TABS 899083 LOVASTATIN Inactive DILAUDID 2 MG ORAL TABS Take 1/2 tab po every 4 hours as needed for pain 2014 DILAUDID 2 MG ORAL TABS 194403 HYDROMORPHONE HCL Inactive AMITRIPTYLINE HCL 25 MG ORAL TABS 1 q hs prn AMITRIPTYLINE HCL 25 MG ORAL TABS 065468 AMITRIPTYLINE HCL Inactive MECLIZINE HCL 25 MG TAB 1 tablet three times daily for 3 days, then 1/2 tab three times daily for 3 days. MECLIZINE HCL 25 MG TAB 104476 MECLIZINE HCL Inactive AMLODIPINE BESYLATE 5 MG ORAL TABS Take 1 tab po daily AMLODIPINE BESYLATE 5 MG ORAL TABS 171893 AMLODIPINE BESYLATE Inactive TOPIRAMATE 25 MG TABS 1 tab po BID TOPIRAMATE 25 MG TABS 990344 TOPIRAMATE Inactive PREDNISONE 20 MG TAB 1 tablet twice daily for 2 days, then 1 tablet once daily for 2 days PREDNISONE 20 MG TAB 068736 PREDNISONE Inactive PREDNISONE 20 MG TAB 1 tab twice daily for 3 day, then one daily for three days PREDNISONE 20 MG TAB 710132 PREDNISONE Inactive NIFEDIPINE ER 30 MG ORAL [id number] 1 daily NIFEDIPINE ER 30 MG ORAL [id number] NIFEDIPINE Inactive AMLODIPINE BESYLATE 5 MG TABS 1 tablet by mouth daily AMLODIPINE BESYLATE 5 MG TABS 041832 AMLODIPINE BESYLATE Inactive AZITHROMYCIN 250 MG TABS 2 po qd x 1 day, then 1 po qd x 4 days AZITHROMYCIN 250 MG TABS 8683015 AZITHROMYCIN Inactive AZITHROMYCIN 250 MG TABS 2 po qd x 1 day, then 1 po qd x 4 days AZITHROMYCIN 250 MG TABS 8814918 AZITHROMYCIN Inactive PREDNISONE 20 MG TAB 2 po qd x 5 days PREDNISONE 20 MG TAB 936071 PREDNISONE Inactive Vital Signs Date Name Value [...] Panel - Chemistry sodium, serum 137 mmol/L 820-954 3097/01/03 potassium, serum 3.4 mmol/L 3.5-5.2 chloride, serum 102 mmol/L 98-107 carbon dioxide, venous blood 29.2 mmol/L 21.0-32.0 blood glucose 87 mg/dL 65-110 calcium, serum 8.5 mg/dL 8.5-10.1 urea nitrogen, blood 8 mg/dL 7-18 creatinine, serum 0.82 mg/dL 0.55-1.30 sodium, serum 140 mmol/L 762-144 8546/07/13 potassium, serum 3.2 mmol/L 3.5-5.2 chloride, serum [...] ... - Chemistry sodium, serum 141 mmol/L 298-458 9246/08/07 carbon dioxide, venous blood 34.0 mmol/L 21.0-32.0 [...] 0-19 Encounters Code Encounter Date Provider Facility CPT-98697 Level 4 Est. Patient 14:45:25 CDT Harinder Hernandez [facility] CPT-21936 Level 4 Est. Patient 09:15:13 CDT Harinder Cr [facility] CPT-11188 Level 3 Est. Patient 11:51:58 CDT Harinder Hernandez [facility] CPT-70430 Level 3 Est. Patient 11:30:05 CDT Harinder Cr [facility] CPT-44179 Level 4 Est. Patient 10:19:23 CDT Harinder Cr [facility] CPT-59589 Level 3 Est. Patient 09:58:58 CDT Harinder Cr [facility] CPT-27650 Level 3 Est. Patient 12:37:21 CDT Harinder Cr [facility] CPT-22016 Level 3 Est. Patient 18:37:17 CDT Harinder Cr [facility] CPT-31524 Level 4 Est. Patient 11:15:54 CDT Nettie Newberry [facility] CPT-21754 Level 3 Est. Patient 16:42:24 CDT Harinder Cr [facility] CPT-10231 Level 3 Est. Patient 15:03:36 CDT Harinder Cr [facility] CPT-13522 Level 3 Est. Patient 15:03:20 CDT Harinder Cr [facility] CPT-18996 Level 3 Est. Patient 12:14:34 CDT Harinder Cr [facility] CPT-82327 Level 3 Est. Patient 13:47:15 CDT Harinder Cr [facility] CPT-75557 Level 3 Est. Patient 14:08:24 CDT Harinder Cr [facility] CPT-65141 Level 3 Est. Patient 10:07:15 CDT Harinder Cr [facility] CPT-58610 Level 3 Est. Patient 10:06:59 CDT Harinder Hernandez [facility] CPT-17916 Level 3 Est. Patient 15:53:29 CDT Jae Morgan MD [facility] CPT-18234 Level 3 Est. Patient 17:19:04 CDT Harinder Hernandez [facility] CPT-04239 Level 3 Est. Patient 11:13:01 CDT Harinder Hernandez [facility] CPT-68372 Level 3 Est. Patient 09:03:58 CDT Harinder Cr [facility] CPT-45845 Level 3 Est. Patient 14:46:45 STRAIN TECHNICIAN Harinder Hernandez [facility] CPT-53986 Level 3 Est. Patient 09:35:49 STRAIN TECHNICIAN Harinder Hernandez [facility] CPT-21997 Level 3 Est. Patient 09:29:37 STRAIN TECHNICIAN Harinder Hernandez [facility] CPT-05455 Level 3 Est. Patient 15:51:07 CDT Harinder Hernandez [facility] CPT-21317 Level 3 Est. Patient 18:13:13 CDT Harinder Hernandez [facility] CPT-29382 Level 3 Est. Patient 10:44:19 CDT Harinder Cr [facility] CPT-06198 Level 4 Est. Patient 10:07:19 STRAIN TECHNICIAN Harinder Hernandez [facility] CPT-37600 Level 3 Est. Patient 15:59:32 STRAIN TECHNICIAN Harinder Cr [facility] Procedures Code Procedure Name Date Entry Date Standard Description CPT-31645 Abd compl w upright - XRAY USE ONLY 14:48:09 CDT 02/18 CPT-04596 Port a cath flush 13:46:05 CDT CPT-12104 Hip, complete, 2-3 views - XRAY USE ONLY 10:28:40 CDT CPT-29232 BMP - LAB USE ONLY 16:45:09 STRAIN TECHNICIAN CPT-00037 Port a cath flush 12:00:13 STRAIN TECHNICIAN CPT-TCMM Transitional Care Mgmt-Moderate 11:20:16 STRAIN TECHNICIAN CPT-04539 First Vx - Ix admin for Medicare patients 17:35:15 CDT CPT-92794 Fluzone Preservative Free Intramuscular Suspension 17:35 :15 CDT CPT-59820 Microalbumin - LAB USE ONLY 11:52:05 CDT CPT-TCMM Transitional Care Mgmt-Moderate 11:33:57 CDT CPT-13881 No Charge Offi Visit 14:11:29 CDT CPT-87263 Magnesium - LAB USE ONLY 10:45:44 CDT CPT-65057 Lipid - LAB USE ONLY 10:45:44 CDT CPT-10464 CBC - LAB USE ONLY 10:45:44 CDT CPT-33797 Venipuncture Draw Fee 10:45:43 CDT CPT-03084 Venipuncture Draw Fee 18:21:27 CDT CPT-JTINJ Asp/Joint Injection 18:38:04 CDT CPT-32136 Immunization Each Additional Inj 17:38:04 CDT CPT-48494 Immunization Single Admin 17:38:04 CDT CPT-14051 Prevnar 13 17:38:04 CDT CPT-24082 Fluzone Quadrivalent preservative free (>=3yrs.) 17:38: 04 CDT CPT-55519 No Charge Offi Visit 11:14:03 CDT CPT-35279 Chest 2V Frontal and Lat 14:00:18 CDT CPT-OV Office Visit 16:10:28 CDT CPT-JTINJ Asp/Joint Injection 09:03:57 CDT CPT-Cryo Cryotherapy 09:35:49 STRAIN TECHNICIAN CPT-JTINJ Asp/Joint Injection 09:34:45 STRAIN TECHNICIAN CPT-J2930 Solu Medrol 125 mg (Methyl Prednisolone Sodium Succinate) 20:37:27 CDT CPT-30541 Abx/Therapy Injection 20:37:27 CDT CPT-08974 Port a cath flush 08:15:51 CDT CPT-21659 Port a cath flush 09:54:16 CDT CPT-31757 Port a cath flush 09:38:02 CDT CPT-61454 Port a cath flush 11:00:27 STRAIN TECHNICIAN
--- OUTSIDE RECORDS SUMMARY | 2017-12-29 05:45 | XMS REPORT | Clinical Summary ---
Author Author Admin, QIE Organization [facility] Address Unknown Phone Unavailable Allergies, Adverse Reactions, [...] Cr David DO Sacroiliitis, right ICD-720.2 Inactive [place] Cr David DO Biceps tendinitis, left ICD-726.12 [...] MG/0.3ML INJ SOAJ 1 INJ NEEDED EPINEPHRINE 18747686031 Active Tawnya Pardo MA Active PREDNISONE 20 MG TAB 1 tab twice daily for 3 day, then one daily for three days PREDNISONE 98720463632 No Longer Active Harinder Hernandez DO Active PREDNISONE 20 MG TAB 1 tablet twice daily for 2 days, then 1 tablet once daily for 2 days PREDNISONE 75239131107 No Longer Active Harinder Hernandez DO Active ASMANEX 120 METERED DOSES 220 MCG/INH INH AEPB 2 puffs orally twice daily MOMETASONE FUROATE 58527242927 Active Jeri Sosa RPT,RMA Active NIFEDIPINE ER 30 MG ORAL [id number] 1 daily NIFEDIPINE 37385982621 Active Kaylah Newberry Active TOPIRAMATE 25 MG TABS 1 tab po BID TOPIRAMATE 23840623041 No Longer Active Nettie Newberry APRN Active AMLODIPINE BESYLATE 5 MG ORAL TABS Take 1 tab po daily AMLODIPINE BESYLATE 28653925571 No Longer Active Nettie Newberry APRN Active MECLIZINE HCL 25 MG TAB 1 tablet three times daily for 3 days, then 1/2 tab three times daily for 3 days. MECLIZINE HCL 52034064889 No Longer Active Nettie Newberry APRN Active AMITRIPTYLINE HCL 25 MG ORAL TABS 1 q hs prn AMITRIPTYLINE HCL 46058573135 No Longer Active Nettie Newberry APRN Active DILAUDID 2 MG ORAL TABS Take 1/2 tab po every 4 hours as needed for pain 2014 HYDROMORPHONE HCL 87001917621 No Longer Active Nettie Newberry APRN Active CLOPIDOGREL BISULFATE 75 MG ORAL TABS 1 tab by mouth once daily CLOPIDOGREL BISULFATE 93775882200 Active Tawnya Pardo MA Active ATORVASTATIN CALCIUM 10 MG ORAL TABS 1 at bedtime ATORVASTATIN CALCIUM 21363075520 Active Tawnya Pardo MA Active LOVASTATIN 40 MG ORAL TABS Take 1 tab po every hs LOVASTATIN 02671788492 No Longer Active Harinder Hernandez DO Active PREDNISONE 20 MG TAB 2 tabs daily for 4 days, 1 tab daily for 4 days, 1/2 tab daily for 4 days PREDNISONE 45813436384 No Longer Active Harinder Hernandez DO Active LEVAQUIN 500 MG ORAL TABS Take 1 tab po daily x 8 days LEVOFLOXACIN 50014918747 No Longer Active Harinder Hernandez DO Active VENTOLIN HFA 108 (90 BASE) MCG/ACT AERS 2 -4 puffs four times a day PRN 2013 ALBUTEROL SULFATE 43407794534 No Longer Active Jeri Sosa RPT,RMA Active ACEBUTOLOL HCL 200 MG CAPS 1 cap in the morning and 2 caps in the evening ACEBUTOLOL HCL 02605702786 No Longer Active Harinder Hernandez DO Active CEFDINIR 300 MG ORAL CAPS take 1 cap po bid x 10 days CEFDINIR 57996184271 No Longer Active Harinder Hernandez DO Active LOVASTATIN 40 MG TABS 1 pill by mouth nightly for cholesterol LOVASTATIN 50434113943 No Longer Active Nettie Newberry APRN Active NITROSTAT 0.4 MG SUBL 1 tab under tongueas needed for chest pain ( may take 3 total, 5 min apart, then call 911) NITROGLYCERIN 90907419483 No Longer Active Nettie Newberry APRN Active POTASSIUM CHLORIDE CR 10 MEQ CPCR 1 capsule by mouth daily 02/14 POTASSIUM CHLORIDE 68270977369 No Longer Active Nettie Newberry APRN Active TESSALON PERLES 100 MG CAP 1 to 2 tablets by mouth 3 times daily as needed for cough BENZONATATE 32330146028 No Longer Active Nettie Newberry APRN Active THEOPHYLLINE ER 200 MG ORAL [id number] Take 1 tab every 12 hours THEOPHYLLINE 59695173512 Active Tawnya Pardo MA Active PREDNISONE 20 MG TAB 2 po qd x 5 days PREDNISONE 85693206044 No Longer Active Jae Morgan MD Active AZITHROMYCIN 250 MG TABS 2 po qd x 1 day, then 1 po qd x 4 days AZITHROMYCIN 69083391183 No Longer Active Jae Morgan MD Active PREDNISONE 20 MG TAB 1 tab twice daily for 3 day, then one daily for three days PREDNISONE 05941250902 No Longer Active Jae Morgan MD Active SINGULAIR 10 MG TABS 1 pill by mouth every evening for breathing. MONTELUKAST SODIUM 22054201358 Active Tawnya Pardo MA Active TYLENOL 325 MG TAB 3 by mouth q4h as needed ACETAMINOPHEN 15396549823 Active Harinder Hernandez DO Active POTASSIUM CHLORIDE ER 10 MEQ CR-TABS take 1 tab po daily POTASSIUM CHLORIDE 58596645457 No Longer Active Harinder Hernandez DO Active PREDNISONE 20 MG TAB 1 TID x 2 days, then 1 BID x 3 days, then 1 Daily x 3 days, then stop PREDNISONE 42949913031 No Longer Active John Montemayor APRN Active LEVAQUIN 500 MG TAB 1 tablet by mouth daily LEVOFLOXACIN 52120449111 No Longer Active Jillkvng Montemayor APRN Active NEURONTIN 300 MG CAP 1 cap by mouth three times daily for restless leg 06/22 GABAPENTIN 31935954098 No Longer Active Harinder Hernandez DO Active BENZONATATE 100 MG CAPS 1 cap po TID PRN BENZONATATE 19183615309 No Longer Active Harinder Hernandez DO Active MONTELUKAST SODIUM 10 MG TABS 1 tab po in the evening MONTELUKAST SODIUM 15861974865 No Longer Active Harinder Hernandez DO Active MUPIROCIN 2 % OINT apply to affected area BID x 14 days MUPIROCIN 30954400622 No Longer Active Harinder Hernandez DO Active TYLENOL EXTRA STRENGTH 500 MG TABS as needed ACETAMINOPHEN 27922885324 No Longer Active Harinder Hernandez DO Active PREDNISONE 10 MG TABS 1 tab po daily PREDNISONE 65834337914 No Longer Active Harinder Hernandez DO Active PREDNISONE 20 MG TAB 2 tabs daily for 4 days, 1 tab daily for 4 days, 1/2 tab daily for 4 days PREDNISONE 40608656290 No Longer Active Harinder Hernandez DO Active AZITHROMYCIN 250 MG TABS 2 po qd x 1 day, then 1 po qd x 4 days AZITHROMYCIN 08075067928 No Longer Active Harinder Hernandez DO Active PREDNISONE 20 MG TAB 3 tabs today, then 1 tab twice daily for 3 day, then one daily for three days PREDNISONE 64175080093 No Longer Active Harinder Hernandez DO Active NIFEDIAC CC 30 MG [id number] 1 tablet daily for raynaud's syndrome NIFEDIPINE 59212650437 No Longer Active Tawnya Pardo MA Active AMBIEN 10 MG TAB 1/2 tab by mouth at bedtime as needed for sleep ZOLPIDEM TARTRATE 76870918759 Active Harinder Hernandez DO Active CLONAZEPAM 1 MG TABS 1 tablet at bedtime for insomnia and restless legs 09/14 CLONAZEPAM 97525186207 Active Kaylah Newberry Active CLONAZEPAM 0.5 MG TABS 1 tab po daily CLONAZEPAM 18260318058 No Longer Active Harinder Hernandez DO Active PREDNISONE 10 MG TAB 1 tablet daily for COPD PREDNISONE 17288425335 Active Tawnya Pardo MA Active PROAIR HFA 108 (90 BASE) MCG/ACT AERS 2 puffs four times a day as needed 2012 ALBUTEROL SULFATE 44800659334 Active Tawnya Pardo MA Active FLOVENT HFA 110 MCG/ACT AERO 2 puffs inhaled b.i.d. FLUTICASONE PROPIONATE HFA 98514312364 Active Tawnya Pardo MA Active ACIPHEX 20 MG TBEC 1 tab po daily RABEPRAZOLE SODIUM 89496712367 Active Kaylah Newberry Active CLONAZEPAM 0.5 MG TABS 1 tab po daily CLONAZEPAM 0.5 MG TABS 733291 CLONAZEPAM Inactive PREDNISONE 20 MG TAB 3 tabs today, then 1 tab twice daily for 3 day, then one daily for three days PREDNISONE 20 MG TAB 312919 PREDNISONE Inactive PREDNISONE 20 MG TAB 2 tabs daily for 4 days, 1 tab daily for 4 days, 1/2 tab daily for 4 days PREDNISONE 20 MG TAB 681765 PREDNISONE Inactive PREDNISONE 10 MG TABS 1 tab po daily PREDNISONE 10 MG TABS 539528 PREDNISONE Inactive TYLENOL EXTRA STRENGTH 500 MG TABS as needed TYLENOL EXTRA STRENGTH 500 MG TABS 397784 ACETAMINOPHEN Inactive MUPIROCIN 2 % OINT apply to affected area BID x 14 days MUPIROCIN 2 % OINT 747443 MUPIROCIN Inactive MONTELUKAST SODIUM 10 MG TABS 1 tab po in the evening MONTELUKAST SODIUM 10 MG TABS 376044 MONTELUKAST SODIUM Inactive BENZONATATE 100 MG CAPS 1 cap po TID PRN BENZONATATE 100 MG CAPS 394389 BENZONATATE Inactive NEURONTIN 300 MG CAP 1 cap by mouth three times daily for restless leg 06/22 NEURONTIN 300 MG CAP 017159 GABAPENTIN Inactive LEVAQUIN 500 MG TAB 1 tablet by mouth daily LEVAQUIN 500 MG TAB 429402 LEVOFLOXACIN Inactive PREDNISONE 20 MG TAB 1 TID x 2 days, then 1 BID x 3 days, then 1 Daily x 3 days, then stop PREDNISONE 20 MG TAB 449009 PREDNISONE Inactive POTASSIUM CHLORIDE ER 10 MEQ CR-TABS take 1 tab po daily POTASSIUM CHLORIDE ER 10 MEQ CR-TABS POTASSIUM CHLORIDE Inactive PREDNISONE 20 MG TAB 1 tab twice daily for 3 day, then one daily for three days PREDNISONE 20 MG TAB 647698 PREDNISONE Inactive TESSALON PERLES 100 MG CAP 1 to 2 tablets by mouth 3 times daily as needed for cough TESSALON PERLES 100 MG CAP 302306 BENZONATATE Inactive POTASSIUM CHLORIDE CR 10 MEQ CPCR 1 capsule by mouth daily 02/14 POTASSIUM CHLORIDE CR 10 MEQ CPCR POTASSIUM CHLORIDE Inactive NITROSTAT 0.4 MG SUBL 1 tab under tongueas needed for chest pain ( may take 3 total, 5 min apart, then call 911) NITROSTAT 0.4 MG SUBL 333516 NITROGLYCERIN Inactive LOVASTATIN 40 MG TABS 1 pill by mouth nightly for cholesterol LOVASTATIN 40 MG TABS 286245 LOVASTATIN Inactive CEFDINIR 300 MG ORAL CAPS take 1 cap po bid x 10 days CEFDINIR 300 MG ORAL CAPS 905498 CEFDINIR Inactive ACEBUTOLOL HCL 200 MG CAPS 1 cap in the morning and 2 caps in the evening ACEBUTOLOL HCL 200 MG CAPS 822339 ACEBUTOLOL HCL Inactive VENTOLIN HFA 108 (90 BASE) MCG/ACT AERS 2 -4 puffs four times a day PRN 2013 VENTOLIN HFA 108 (90 BASE) MCG/ACT AERS ALBUTEROL SULFATE Inactive LEVAQUIN 500 MG ORAL TABS Take 1 tab po daily x 8 days LEVAQUIN 500 MG ORAL TABS 826474 LEVOFLOXACIN Inactive PREDNISONE 20 MG TAB 2 tabs daily for 4 days, 1 tab daily for 4 days, 1/2 tab daily for 4 days PREDNISONE 20 MG TAB 168640 PREDNISONE Inactive LOVASTATIN 40 MG ORAL TABS Take 1 tab po every hs LOVASTATIN 40 MG ORAL TABS 996581 LOVASTATIN Inactive DILAUDID 2 MG ORAL TABS Take 1/2 tab po every 4 hours as needed for pain 2014 DILAUDID 2 MG ORAL TABS 920272 HYDROMORPHONE HCL Inactive AMITRIPTYLINE HCL 25 MG ORAL TABS 1 q hs prn AMITRIPTYLINE HCL 25 MG ORAL TABS 947505 AMITRIPTYLINE HCL Inactive MECLIZINE HCL 25 MG TAB 1 tablet three times daily for 3 days, then 1/2 tab three times daily for 3 days. MECLIZINE HCL 25 MG TAB 989919 MECLIZINE HCL Inactive AMLODIPINE BESYLATE 5 MG ORAL TABS Take 1 tab po daily AMLODIPINE BESYLATE 5 MG ORAL TABS 393839 AMLODIPINE BESYLATE Inactive TOPIRAMATE 25 MG TABS 1 tab po BID TOPIRAMATE 25 MG TABS 247919 TOPIRAMATE Inactive PREDNISONE 20 MG TAB 1 tablet twice daily for 2 days, then 1 tablet once daily for 2 days PREDNISONE 20 MG TAB 024258 PREDNISONE Inactive PREDNISONE 20 MG TAB 1 tab twice daily for 3 day, then one daily for three days PREDNISONE 20 MG TAB 409302 PREDNISONE Inactive AZITHROMYCIN 250 MG TABS 2 po qd x 1 day, then 1 po qd x 4 days AZITHROMYCIN 250 MG TABS 0836453 AZITHROMYCIN Inactive AZITHROMYCIN 250 MG TABS 2 po qd x 1 day, then 1 po qd x 4 days AZITHROMYCIN 250 MG TABS 0678575 AZITHROMYCIN Inactive PREDNISONE 20 MG TAB 2 po qd x 5 days PREDNISONE 20 MG TAB 462168 PREDNISONE Inactive Vital Signs Date Name Value [...] BP daan blood pressure, systolic - 8480-6 113 mm[Hg] [...] Magnesium - Chemistry cholesterol, serum 180 mg/dL 496-892 1234/08/08 triglyceride, serum, fasting 92 mg/dL 30-200 HDL cholesterol, serum 66 mg/dL 32-96 LDL cholesterol, serum 96 mg/dL 0-130 sodium, serum 142 mmol/L 285-998 8343/08/08 carbon dioxide, venous blood 27.4 mmol/L 21.0-32.0 [...] 10.0-20.0 Encounters Code Encounter Date Provider Facility CPT-20723 Level 3 Est. Patient 09:58:58 CDT Harinder Cr [facility] CPT-65532 Level 3 Est. Patient 12:37:21 CDT Harinder Cr [facility] CPT-20559 Level 3 Est. Patient 18:37:17 CDT Harinder Cr [facility] CPT-17018 Level 4 Est. Patient 11:15:54 CDT Nettie Newberry [employer] [facility] CPT-67407 Level 3 Est. Patient 16:42:24 CDT Harinder Cr [facility] CPT-11192 Level 3 Est. Patient 15:03:36 CDT Harinder W [facility] CPT-24941 Level 3 Est. Patient 15:03:20 CDT Harinder Hernandez [facility] CPT-46374 Level 3 Est. Patient 12:14:34 CDT Harinder Hernandez [facility] CPT-51751 Level 3 Est. Patient 13:47:15 CDT Harinder Hernandez [facility] CPT-26658 Level 3 Est. Patient 14:08:24 CDT Harinder Hernandez [facility] CPT-51697 Level 3 Est. Patient 10:07:15 CDT Harinder Hernandez [facility] CPT-51716 Level 3 Est. Patient 10:06:59 CDT Harinder Hernandez [facility] CPT-82894 Level 3 Est. Patient 15:53:29 CDT Jae Morgan MD [facility] CPT-81956 Level 3 Est. Patient 17:19:04 CDT Harinder Hernandez [facility] CPT-62808 Level 3 Est. Patient 11:13:01 CDT Harinder Hernandez [facility] CPT-85899 Level 3 Est. Patient 09:03:58 CDT Harinder Hernandez [facility] CPT-76441 Level 3 Est. Patient 14:46:45 OFFICE DIRECTOR Harinder Hernandez [facility] CPT-43737 Level 3 Est. Patient 09:35:49 OFFICE DIRECTOR Harinder Hernandez [facility] CPT-73394 Level 3 Est. Patient 09:29:37 OFFICE DIRECTOR Harinder Hernandez [facility] CPT-11231 Level 3 Est. Patient 15:51:07 CDT Harinder Hernandez [facility] CPT-57063 Level 3 Est. Patient 18:13:13 CDT Harinder Cr [facility] CPT-50895 Level 3 Est. Patient 10:44:19 CDT Harinder Hernandez [facility] CPT-78070 Level 4 Est. Patient 10:07:19 OFFICE DIRECTOR Harinder Hernandez [facility] CPT-18799 Level 3 Est. Patient 15:59:32 OFFICE DIRECTOR Harinder Hernandez [facility] Procedures Code Procedure Name Date Entry Date Standard Description CPT-02531 First Vx - Ix admin for Medicare patients 17:35:15 CDT CPT-13067 Fluzone Preservative Free Intramuscular Suspension 17:35 :15 CDT CPT-98174 Microalbumin - LAB USE ONLY 11:52:05 CDT CPT-TCMM Transitional Care Mgmt-Moderate 11:33:57 CDT CPT-70023 No Charge Offi Visit 14:11:29 CDT CPT-50165 Magnesium - LAB USE ONLY 10:45:44 CDT CPT-34284 Lipid - LAB USE ONLY 10:45:44 CDT CPT-26544 CBC - LAB USE ONLY 10:45:44 CDT CPT-71785 Venipuncture Draw Fee 10:45:43 CDT CPT-68330 Venipuncture Draw Fee 18:21:27 CDT CPT-JTINJ Asp/Joint Injection 18:38:04 CDT CPT-96363 Immunization Each Additional Inj 17:38:04 CDT CPT-77147 Immunization Single Admin 17:38:04 CDT CPT-21926 Prevnar 13 17:38:04 CDT CPT-23448 Fluzone Quadrivalent preservative free (>=3yrs.) 17:38: 04 CDT CPT-93339 No Charge Offi Visit 11:14:03 CDT CPT-72909 Chest 2V Frontal and Lat 14:00:18 CDT CPT-OV Office Visit 16:10:28 CDT CPT-JTINJ Asp/Joint Injection 09:03:57 CDT CPT-Cryo Cryotherapy 09:35:49 OFFICE DIRECTOR CPT-JTINJ Asp/Joint Injection 09:34:45 OFFICE DIRECTOR CPT-J2930 Solu Medrol 125 mg (Methyl Prednisolone Sodium Succinate) 20:37:27 CDT CPT-82369 Abx/Therapy Injection 20:37:27 CDT CPT-73832 Port a cath flush 08:15:51 CDT CPT-43338 Port a cath flush 09:54:16 CDT CPT-38882 Port a cath flush 09:38:02 CDT CPT-60053 Port a cath flush 11:00:27 OFFICE DIRECTOR
--- OUTSIDE RECORDS SUMMARY | 2017-12-29 05:46 | XMS REPORT | Clinical Summary ---
Author Author Admin, QIE Organization [facility] [employer] Address Unknown Phone Unavailable Allergies, Adverse [...] Active Harinder Hernandez DO BENADRYL Critical Active Haridner Hernandez DO BACLOFEN Critical Active Harinder Hernandez DO ASA Critical Active Harinder Hernandez DO PHENERGAN Critical Active Harinder Hernandez DO VALIUM Critical Active Harinder Hernandez DO DEMEROL Critical Active Harinder Hernandez DO SULFA Critical Active Harinder Hernandze DO PCN Critical Active Harinder Hernandez DO [...] Hernandez DO Edema Tendonitis 726.90 Active Harinder Hernanedz DO Enthesopathy of unspecified site Anxiety depression [...] pain, right lower quadrant ICD-789.03 Inactive Harinder Hernnadez DO Needs vaccination for influenza ICD-V04.81 Inactive Harinder Hernandez DO Need for prophylactic vaccination against streptococcus pneumoniae ( Pneumococcus) ICD-V03.82 Inactive Harinder Hernandez DO Greater trochanteric bursitis, left ICD-726.5 Inactive Harinder Hernanedz DO Medication List Medication Instructions Start Date Stop Date Generic Name NDC Status Provider Patient Instruction POTASSIUM CHLORIDE 20 MEQ ORAL PACK 1 tab po BID for 7 days then 1 tab po q day therafter. POTASSIUM CHLORIDE 94490633563 Active Kortney Mccain Active POTASSIUM CHLORIDE CR 10 MEQ CPCR 1 capsule BID POTASSIUM CHLORIDE 98647091710 No Longer Active Kortney Mccain Active LASIX 20 MG TAB 1 tablet by mouth every morning FUROSEMIDE 75272539614 No Longer Active Kortney Mccain Active SPIRONOLACTONE 25 MG TAB 1 tablet by mouth daily SPIRONOLACTONE 78232235341 Active Ciera Pimentel Active FLUOXETINE HCL 10 MG ORAL CAPS 1 po qd for depression/anxiety FLUOXETINE HCL 37168904064 Active Harinder Hernandez DO Active VOLTAREN 1 % GEL apply q 6-8 hour to left arm as needed for pain DICLOFENAC SODIUM 74537185987 Active Harinder Hernandez DO Active ALBUTEROL SULFATE 0.083 % NEBU SOLN 1 vial neb q 4hrs for severe asthma. 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 FLUTICASONE PROPIONATE HFA 19468743412 Active Harinder Hernandez DO Active EPIPEN 2-BRUNA 0.3 MG/0.3ML INJ SOAJ 1 INJ NEEDED EPINEPHRINE 81865761233 Active Harinder Hernandez DO Active PREDNISONE 20 MG TAB 1 tab twice daily for 3 day, then one daily for three days PREDNISONE 30265088363 No Longer Active Harinder Hernandez DO Active PREDNISONE 20 MG TAB 1 tablet twice daily for 2 days, then 1 tablet once daily for 2 days PREDNISONE 17276908896 No Longer Active Harinder Hernandez DO Active ASMANEX 120 METERED DOSES 220 MCG/INH INH AEPB 2 puffs orally twice daily MOMETASONE FUROATE 67609312833 Active Jeri Sosa LPN Active TOPIRAMATE 25 MG TABS 1 tab po BID TOPIRAMATE 55648025659 No Longer Active Nettie Newberry APRN Active AMLODIPINE BESYLATE 5 MG ORAL TABS Take 1 tab po daily AMLODIPINE BESYLATE 22437351142 No Longer Active Nettie Newebrry APRN Active MECLIZINE HCL 25 MG TAB 1 tablet three times daily for 3 days, then 1/2 tab three times daily for 3 days. MECLIZINE HCL 49501727774 No Longer Active Nettie Newberry MAHENDRA Active AMITRIPTYLINE HCL 25 MG ORAL TABS 1 q hs prn AMITRIPTYLINE HCL 25295815035 No Longer Active Nettie Newberry MAHENDRA Active DILAUDID 2 MG ORAL TABS Take 1/2 tab po every 4 hours as needed for pain 2014 HYDROMORPHONE HCL 85234124292 No Longer Active Nettieog Newberry APRN Active CLOPIDOGREL BISULFATE 75 MG ORAL TABS 1 tab by mouth once daily CLOPIDOGREL BISULFATE 28142637273 Active Harinder Hernandez DO Active ATORVASTATIN CALCIUM 10 MG ORAL TABS 1 at bedtime ATORVASTATIN CALCIUM 22180205633 Active Tawnya Pardo MA Active LOVASTATIN 40 MG ORAL TABS Take 1 tab po every hs LOVASTATIN 04279843145 No Longer Active Harinder Hernandez DO Active PREDNISONE 20 MG TAB 2 tabs daily for 4 days, 1 tab daily for 4 days, 1/2 tab daily for 4 days PREDNISONE 82755986548 No Longer Active Harinder Hernandez DO Active LEVAQUIN 500 MG ORAL TABS Take 1 tab po daily x 8 days LEVOFLOXACIN 58125091716 No Longer Active Harinder Hernandez DO Active VENTOLIN HFA 108 (90 BASE) MCG/ACT AERS 2 -4 puffs four times a day PRN 2013 ALBUTEROL SULFATE 99578337897 No Longer Active Jeri Sosa LPN Active ACEBUTOLOL HCL 200 MG CAPS 1 cap in the morning and 2 caps in the evening ACEBUTOLOL HCL 19146185357 No Longer Active Harinder Hernandez DO Active CEFDINIR 300 MG ORAL CAPS take 1 cap po bid x 10 days CEFDINIR 96514523367 No Longer Active Harinder Hernandez DO Active LOVASTATIN 40 MG TABS 1 pill by mouth nightly for cholesterol LOVASTATIN 26132536932 No Longer Active Nettie Rohith MAHENDRA Active NITROSTAT 0.4 MG SUBL 1 tab under tongueas needed for chest pain ( may take 3 total, 5 min apart, then call 911) NITROGLYCERIN 92354227075 No Longer Active Nettie Newberry MAHENDRA Active POTASSIUM CHLORIDE CR 10 MEQ CPCR 1 capsule by mouth daily 02/14 POTASSIUM CHLORIDE 89317063621 [facility] TESSALON PERLES 100 MG CAP 1 to 2 tablets by mouth 3 times daily as needed for cough BENZONATATE 94494570403 No Longer Active Nettie Newberry MAHENDRA Active THEOPHYLLINE ER 200 MG ORAL [id number] Take 1 tab every 12 hours THEOPHYLLINE 85244397110 Active Harinder Hernandez DO Active PREDNISONE 20 MG TAB 2 po qd x 5 days PREDNISONE 91780908472 No Longer Active Jae Morgan MD Active AZITHROMYCIN 250 MG TABS 2 po qd x 1 day, then 1 po qd x 4 days AZITHROMYCIN 77959015299 No Longer Active Jae Morgan MD Active PREDNISONE 20 MG TAB 1 tab twice daily for 3 day, then one daily for three days PREDNISONE 32509157429 No Longer Active Jae Morgan MD Active SINGULAIR 10 MG TABS 1 pill by mouth every evening for breathing. MONTELUKAST SODIUM 18705215856 Active Tawnya Pardo MA Active TYLENOL 325 MG TAB 3 by mouth q4h as needed ACETAMINOPHEN 10031312258 Active Harinder Hernandez DO Active POTASSIUM CHLORIDE ER 10 MEQ CR-TABS take 1 tab po daily POTASSIUM CHLORIDE 82799813714 No Longer Active Harinder Hernandez DO Active PREDNISONE 20 MG TAB 1 TID x 2 days, then 1 BID x 3 days, then 1 Daily x 3 days, then stop PREDNISONE 21752039864 No Longer Active John Montemayor APRN Active LEVAQUIN 500 MG TAB 1 tablet by mouth daily LEVOFLOXACIN 88736840598 No Longer Active John Montemayor PHYSICIAN CODING SPECIALIST Active NEURONTIN 300 MG CAP 1 cap by mouth three times daily for restless leg 06/22 GABAPENTIN 77456638250 No Longer Active Harinder Hernandez DO Active BENZONATATE 100 MG CAPS 1 cap po TID PRN BENZONATATE 45385355925 No Longer Active Harinder Hernandez DO Active MONTELUKAST SODIUM 10 MG TABS 1 tab po in the evening MONTELUKAST SODIUM 76991275927 No Longer Active Harinder Hernandez DO Active MUPIROCIN 2 % OINT apply to affected area BID x 14 days MUPIROCIN 10734201190 No Longer Active Harinder Hernandez DO Active TYLENOL EXTRA STRENGTH 500 MG TABS as needed ACETAMINOPHEN 95455410317 No Longer Active Harinder Hernandez DO Active PREDNISONE 10 MG TABS 1 tab po daily PREDNISONE 33383970388 No Longer Active Harinder Hernandez DO Active PREDNISONE 20 MG TAB 2 tabs daily for 4 days, 1 tab daily for 4 days, 1/2 tab daily for 4 days PREDNISONE 53982621788 No Longer Active Harinder Hernandez DO Active AZITHROMYCIN 250 MG TABS 2 po qd x 1 day, then 1 po qd x 4 days AZITHROMYCIN 82740952774 No Longer Active Harinder Hernandez DO Active PREDNISONE 20 MG TAB 3 tabs today, then 1 tab twice daily for 3 day, then one daily for three days PREDNISONE 74354610694 No Longer Active Harinder Hernandez DO Active NIFEDIAC CC 30 MG [id number] 1 tablet daily for raynaud's syndrome NIFEDIPINE 09394274896 No Longer Active Tawnya Pardo MA Active AMBIEN 10 MG TAB 1/2 tab by mouth at bedtime as needed for sleep ZOLPIDEM TARTRATE 05337868218 Active Harinder Hernandez DO Active CLONAZEPAM 1 MG TABS 1 tablet at bedtime for insomnia and restless legs 09/14 CLONAZEPAM 39794392092 Active Harinder Hernandez DO Active CLONAZEPAM 0.5 MG TABS 1 tab po daily CLONAZEPAM 04845451011 No Longer Active Harinder Hernandez DO Active PREDNISONE 10 MG TAB 1 tablet daily for COPD PREDNISONE 86781639369 Active Harinder Hernandez DO Active PROAIR HFA 108 (90 BASE) MCG/ACT AERS 2 puffs four times a day as needed 2012 ALBUTEROL SULFATE 13888967075 Active Harinder Hernandez DO Active FLOVENT HFA 110 MCG/ACT AERO 2 puffs inhaled b.i.d. FLUTICASONE PROPIONATE HFA 19870189463 Active Kortney Mccain Active ACIPHEX 20 MG TBEC 1 tab po daily RABEPRAZOLE SODIUM 78696940545 Active Kaylah Newberry Active CLONAZEPAM 0.5 MG TABS 1 tab po daily CLONAZEPAM 0.5 MG TABS 138552 CLONAZEPAM Inactive PREDNISONE 20 MG TAB 3 tabs today, then 1 tab twice daily for 3 day, then one daily for three days PREDNISONE 20 MG TAB 126544 PREDNISONE Inactive PREDNISONE 20 MG TAB 2 tabs daily for 4 days, 1 tab daily for 4 days, 1/2 tab daily for 4 days PREDNISONE 20 MG TAB 943363 PREDNISONE Inactive PREDNISONE 10 MG TABS 1 tab po daily PREDNISONE 10 MG TABS 686614 PREDNISONE Inactive TYLENOL EXTRA STRENGTH 500 MG TABS as needed TYLENOL EXTRA STRENGTH 500 MG TABS ACETAMINOPHEN Inactive MUPIROCIN 2 % OINT apply to affected area BID x 14 days MUPIROCIN 2 % OINT 999706 MUPIROCIN Inactive MONTELUKAST SODIUM 10 MG TABS 1 tab po in the evening MONTELUKAST SODIUM 10 MG TABS 20010818 MONTELUKAST SODIUM Inactive BENZONATATE 100 MG CAPS 1 cap po TID PRN BENZONATATE 100 MG CAPS 709891 BENZONATATE Inactive NEURONTIN 300 MG CAP 1 cap by mouth three times daily for restless leg 06/22 NEURONTIN 300 MG CAP 244611 GABAPENTIN Inactive LEVAQUIN 500 MG TAB 1 tablet by mouth daily LEVAQUIN 500 MG TAB 249197 LEVOFLOXACIN Inactive PREDNISONE 20 MG TAB 1 TID x 2 days, then 1 BID x 3 days, then 1 Daily x 3 days, then stop PREDNISONE 20 MG TAB 156686 PREDNISONE Inactive POTASSIUM CHLORIDE ER 10 MEQ CR-TABS take 1 tab po daily POTASSIUM CHLORIDE ER 10 MEQ CR-TABS POTASSIUM CHLORIDE Inactive PREDNISONE 20 MG TAB 1 tab twice daily for 3 day, then one daily for three days PREDNISONE 20 MG TAB 906897 PREDNISONE Inactive TESSALON PERLES 100 MG CAP 1 to 2 tablets by mouth 3 times daily as needed for cough TESSALON PERLES 100 MG CAP 969959 BENZONATATE Inactive POTASSIUM CHLORIDE CR 10 MEQ CPCR 1 capsule by mouth daily 02/14 POTASSIUM CHLORIDE CR 10 MEQ CPCR POTASSIUM CHLORIDE Inactive NITROSTAT 0.4 MG SUBL 1 tab under tongueas needed for chest pain ( may take 3 total, 5 min apart, then call 911) NITROSTAT 0.4 MG SUBL 307463 NITROGLYCERIN Inactive LOVASTATIN 40 MG TABS 1 pill by mouth nightly for cholesterol LOVASTATIN 40 MG TABS 893850 LOVASTATIN Inactive CEFDINIR 300 MG ORAL CAPS take 1 cap po bid x 10 days CEFDINIR 300 MG ORAL CAPS 922422 CEFDINIR Inactive ACEBUTOLOL HCL 200 MG CAPS 1 cap in the morning and 2 caps in the evening ACEBUTOLOL HCL 200 MG CAPS 446378 ACEBUTOLOL HCL Inactive VENTOLIN HFA 108 (90 BASE) MCG/ACT AERS 2 -4 puffs four times a day PRN 2013 VENTOLIN HFA 108 (90 BASE) MCG/ACT AERS ALBUTEROL SULFATE Inactive LEVAQUIN 500 MG ORAL TABS Take 1 tab po daily x 8 days LEVAQUIN 500 MG ORAL TABS 443019 LEVOFLOXACIN Inactive PREDNISONE 20 MG TAB 2 tabs daily for 4 days, 1 tab daily for 4 days, 1/2 tab daily for 4 days PREDNISONE 20 MG TAB 804202 PREDNISONE Inactive LOVASTATIN 40 MG ORAL TABS Take 1 tab po every hs LOVASTATIN 40 MG ORAL TABS 373448 LOVASTATIN Inactive DILAUDID 2 MG ORAL TABS Take 1/2 tab po every 4 hours as needed for pain 2014 DILAUDID 2 MG ORAL TABS 086904 HYDROMORPHONE HCL Inactive AMITRIPTYLINE HCL 25 MG ORAL TABS 1 q hs prn AMITRIPTYLINE HCL 25 MG ORAL TABS 479198 AMITRIPTYLINE HCL Inactive MECLIZINE HCL 25 MG TAB 1 tablet three times daily for 3 days, then 1/2 tab three times daily for 3 days. MECLIZINE HCL 25 MG TAB 849333 MECLIZINE HCL Inactive AMLODIPINE BESYLATE 5 MG ORAL TABS Take 1 tab po daily AMLODIPINE BESYLATE 5 MG ORAL TABS 476985 AMLODIPINE BESYLATE Inactive TOPIRAMATE 25 MG TABS 1 tab po BID TOPIRAMATE 25 MG TABS 071752 TOPIRAMATE Inactive PREDNISONE 20 MG TAB 1 tablet twice daily for 2 days, then 1 tablet once daily for 2 days PREDNISONE 20 MG TAB 811959 PREDNISONE Inactive PREDNISONE 20 MG TAB 1 tab twice daily for 3 day, then one daily for three days PREDNISONE 20 MG TAB 870199 PREDNISONE Inactive NIFEDIPINE ER 30 MG ORAL [id number] 1 daily NIFEDIPINE ER 30 MG ORAL [id number] NIFEDIPINE Inactive AMLODIPINE BESYLATE 5 MG TABS 1 tablet by mouth daily AMLODIPINE BESYLATE 5 MG TABS 542061 AMLODIPINE BESYLATE Inactive LASIX 20 MG TAB 1 tablet by mouth every morning LASIX 20 MG TAB 425358 FUROSEMIDE Inactive POTASSIUM CHLORIDE CR 10 MEQ CPCR 1 capsule BID POTASSIUM CHLORIDE CR 10 MEQ CPCR POTASSIUM CHLORIDE Inactive AZITHROMYCIN 250 MG TABS 2 po qd x 1 day, then 1 po qd x 4 days AZITHROMYCIN 250 MG TABS 1820409 AZITHROMYCIN Inactive AZITHROMYCIN 250 MG TABS 2 po qd x 1 day, then 1 po qd x 4 days AZITHROMYCIN 250 MG TABS 9373854 AZITHROMYCIN Inactive PREDNISONE 20 MG TAB 2 po qd x 5 days PREDNISONE 20 MG TAB 293416 PREDNISONE Inactive Vital Signs Date Name Value [...] Panel - Chemistry sodium, serum 137 mmol/L 509-025 1237/01/03 potassium, serum 3.4 mmol/L 3.5-5.2 chloride, serum 102 mmol/L 98-107 carbon dioxide, venous blood 29.2 mmol/L 21.0-32.0 blood glucose 87 mg/dL 65-110 calcium, serum 8.5 mg/dL 8.5-10.1 urea nitrogen, blood 8 mg/dL 7-18 creatinine, serum 0.82 mg/dL 0.55-1.30 sodium, serum 140 mmol/L 175-684 6948/07/13 potassium, serum 3.2 mmol/L 3.5-5.2 chloride, serum 103 mmol/L 98-107 carbon dioxide, venous blood 26.9 mmol/L 21.0-32.0 blood glucose 93 mg/dL 65-110 calcium, serum 9.2 mg/dL 8.5-10.1 urea nitrogen, blood 13 mg/dL 7-18 creatinine, serum 0.84 mg/dL 0.60-1.30 sodium, serum 140 mmol/L 375-246 0863/08/21 potassium, serum 3.8 mmol/L 3.5-5.2 chloride, serum [...] ... - Chemistry sodium, serum 141 mmol/L 565-291 5846/08/07 carbon dioxide, venous blood 34.0 mmol/L 21.0-32.0 [...] 0-19 Encounters Code Encounter Date Provider Facility CPT-81334 Level 4 Est. Patient 14:45:25 CDT Harinder Cr [facility] CPT-84678 Level 4 Est. Patient 09:15:13 CDT Harinder Cr [facility] CPT-44627 Level 3 Est. Patient 11:51:58 CDT Harinder Cr [facility] CPT-41025 Level 3 Est. Patient 11:30:05 CDT Harinder Cr [facility] CPT-02400 Level 4 Est. Patient 10:19:23 CDT Harinder Cr [facility] CPT-18888 Level 3 Est. Patient 09:58:58 CDT Harinder Cr [facility] CPT-06369 Level 3 Est. Patient 12:37:21 CDT Harinder Cr [facility] CPT-26983 Level 3 Est. Patient 18:37:17 CDT Harinder Cr [facility] CPT-99141 Level 4 Est. Patient 11:15:54 CDT Nettie Rohith [facility] CPT-03560 Level 3 Est. Patient 16:42:24 CDT Harinder Cr [facility] CPT-85703 Level 3 Est. Patient 15:03:36 CDT Harinder Cr [facility] CPT-59586 Level 3 Est. Patient 15:03:20 CDT Harinder Cr [facility] CPT-34944 Level 3 Est. Patient 12:14:34 CDT Harinder Cr [facility] CPT-28419 Level 3 Est. Patient 13:47:15 CDT Harinder Cr [facility] CPT-11968 Level 3 Est. Patient 14:08:24 CDT Harinder Hernandez [facility] CPT-36034 Level 3 Est. Patient 10:07:15 CDT Harinder Hernandez [facility] CPT-77104 Level 3 Est. Patient 10:06:59 CDT Harinder Hernandez [facility] CPT-70370 Level 3 Est. Patient 15:53:29 CDT Jae Morgan MD [facility] CPT-32945 Level 3 Est. Patient 17:19:04 CDT Harinder Hernandez [facility] CPT-17735 Level 3 Est. Patient 11:13:01 CDT Harinder Hernandez [facility] CPT-75192 Level 3 Est. Patient 09:03:58 CDT Harinder Hernandez [facility] CPT-92608 Level 3 Est. Patient 14:46:45 INFANTRYMAN Harinder Hernandez [facility] CPT-10764 Level 3 Est. Patient 09:35:49 INFANTRYMAN Harinder Hernandez [facility] CPT-25201 Level 3 Est. Patient 09:29:37 INFANTRYMAN Harinder Hernandez [facility] CPT-59312 Level 3 Est. Patient 15:51:07 CDT Harinder Hernandez [facility] CPT-05340 Level 3 Est. Patient 18:13:13 CDT Harinder Hernandez [facility] CPT-32574 Level 3 Est. Patient 10:44:19 CDT Harinder Cr [facility] CPT-41596 Level 4 Est. Patient 10:07:19 INFANTRYMAN Harinder Hernandez [facility] CPT-01401 Level 3 Est. Patient 15:59:32 INFANTRYMAN Harinder Cr [facility] Procedures Code Procedure Name Date Entry Date Standard Description CPT-32511 Abd compl w upright - XRAY USE ONLY 14:48:09 CDT 02/18 CPT-19270 Port a cath flush 13:46:05 CDT CPT-71941 Hip, complete, 2-3 views - XRAY USE ONLY 10:28:40 CDT CPT-48019 BMP - LAB USE ONLY 16:45:09 INFANTRYMAN CPT-13518 Port a cath flush 12:00:13 INFANTRYMAN CPT-TCMM Transitional Care Mgmt-Moderate 11:20:16 INFANTRYMAN CPT-85395 First Vx - Ix admin for Medicare patients 17:35:15 CDT CPT-68646 Fluzone Preservative Free Intramuscular Suspension 17:35 :15 CDT CPT-05821 Microalbumin - LAB USE ONLY 11:52:05 CDT CPT-TCMM Transitional Care Mgmt-Moderate 11:33:57 CDT CPT-19974 No Charge Offi Visit 14:11:29 CDT CPT-05589 Magnesium - LAB USE ONLY 10:45:44 CDT CPT-18857 Lipid - LAB USE ONLY 10:45:44 CDT CPT-36106 CBC - LAB USE ONLY 10:45:44 CDT CPT-71892 Venipuncture Draw Fee 10:45:43 CDT CPT-73985 Venipuncture Draw Fee 18:21:27 CDT CPT-JTINJ Asp/Joint Injection 18:38:04 CDT CPT-58832 Immunization Each Additional Inj 17:38:04 CDT CPT-25964 Immunization Single Admin 17:38:04 CDT CPT-05869 Prevnar 13 17:38:04 CDT CPT-02558 Fluzone Quadrivalent preservative free (>=3yrs.) 17:38: 04 CDT CPT-75470 No Charge Offi Visit 11:14:03 CDT CPT-41119 Chest 2V Frontal and Lat 14:00:18 CDT CPT-OV Office Visit 16:10:28 CDT CPT-JTINJ Asp/Joint Injection 09:03:57 CDT CPT-Cryo Cryotherapy 09:35:49 INFANTRYMAN CPT-JTINJ Asp/Joint Injection 09:34:45 INFANTRYMAN CPT-J2930 Solu Medrol 125 mg (Methyl Prednisolone Sodium Succinate) 20:37:27 CDT CPT-82518 Abx/Therapy Injection 20:37:27 CDT CPT-05595 Port a cath flush 08:15:51 CDT CPT-48236 Port a cath flush 09:54:16 CDT CPT-23501 Port a cath flush 09:38:02 CDT CPT-56203 Port a cath flush 11:00:27 INFANTRYMAN
--- OUTSIDE RECORDS SUMMARY | 2017-12-29 05:47 | XMS REPORT ---
Author [facility] Medical Staff Organization [facility] Address [address], [place] [address] Phone [phone] Care Team Providers Care Coding Spec Name Role Phone HARINDER HERNANDEZ DO PP [phone] HARINDER HERNANDEZ DO PP [phone] Summary purpose TRANSITION OF CARE AUTO GENERATION [...] tests and/or laboratory data RESULTS Routine Urinalysis [id number]:50:00 Result Normal Range Units Color YELLOW Clarity Clear Specific [place] 1.005 1.003-1.035 pH 7.0 4.5-8.0 Glucose NEGATIVE Bilirubin NEGATIVE Ketones NEGATIVE Protein NEGATIVE Urobilinogen 0.2 0-0.2 E.U./dL Nitrites NEGATIVE Blood 2+ Leukocytes NEGATIVE WBCs 0-5 RBCs 0-5 Squamous Epithelial Few Bacteria Rare Amount Blood Cultures [id number]:11:00 Blood Culture Plate Date and Time 02/15/2015 16:14 SourceBLOOD CULTURE REPORT NoGrowth at 1 day. Unless otherwise notified. Final report in 5 Days. Release Date/Time: 02/17/2015 09:06 CULTURE REPORT No growth in 5 days. Release Date/Time: 02/21/2015 07:30 [id number] Blood Culture Plate Date and Time 02/15/2015 15:44 SourceBLOOD CULTURE REPORT NoGrowth at 1 day. Unless otherwise notified. Final report in 5 Days. Release Date/Time: 02/17/2015 09:06 CULTURE REPORT No growth in 5 days. Release Date/Time: 02/21/2015 07:30 Drug Screen In House [id number]:50:00 Result Normal Range Units Amphetamine Negative Negative Barbiturates Negative Negative Benzodiazepines Negative Negative Cannabinoids Negative Negative *Triage TOXis a medical drug screen to be used only for assessment and treatment of patients. This drug screen cannot be used for employment or legal purposes. Cocaine Negative Negative Mamp/MDMA Negative Negative Methadone Negative Negative Opiates Negative Negative Phencyclidine Negative Negative Tricyclic Antidepressants Negative Negative Chemistry [id number]:25:00 Result Normal Range Units Sodium 140 134-145 [...] Estimated GFR L 46 >=60 mL/min/1.7 Hematology [id number]:25:00 Result Normal Range Units WBC 7.1 4.8-10.8 103/uL RBC 4.2 4.2-5.4 106/uL HGB 13.1 12.0-16.0 g/dl HCT 38.7 36.9-47.0 % MCV 92.6 81-99 FL MCH H 31.3 27-31 pg MCHC 33.9 33-37 g/dl RDW 12.0 11.5-15.5 % PLT 215 130-400 103/uL MPV 10.0 7.3-10.4 FL Neutro % 57.0 40-70 % Lymph % 33.6 20-40 % [place] % 7.6 0-10.0 % Eos % 0.8 0-7.0 % Baso % 0.6 0-2 % Neutro # 4.0 1.5-7.5 103/uL Lymph # 2.4 0.9-4.0 103/uL [place] # 0.5 0-0.8 103/uL Eos # 0.1 0-0.6 103/uL Baso # 0.0 0-0.1 103/uL Body Fluid :50:00 Result Normal Range Units pH 7.0 4.5-8.0 Cardiac :05:00 Result Normal Range Units Troponin I < [...] patient history should be interpreted with caution. [id number]:55:00 Result Normal Range Units Troponin I < [...] patient history should be interpreted with caution. :25:00 Result Normal Range Units Troponin I < [...] should be interpreted with caution. Radiology Results [id number] Chest X-Ray - 2 View PACs Image [...] process or change from 08/02/14. DO KARRI Ham/pb 02/15/2015 15:51: / 02/15/2015 19:42:39 cc:Dr. Harinder Hernandez This [...] process or change from 08/02/14. DO KARRI Ham/pb 02/15/2015 15:51:00 / 02/15/2015 19:42:39 cc:Dr. Harinder Hernandez This document has been electronically Signed by: MIRYAM ALVARADO DO On: 20148:01A CHEST PAIN RO NAUSEA VOMITING HEADACHE Result Amended on 2015-02-16 at 08:01:29. Previous status was MD. CHEST PAIN RO NAUSEA VOMITING HEADACHE [id number]:25:00 Result Normal Range Units MPV 10.0 7.3-10.4 FL History of procedures No procedures recorded for this patient visit. Functional status Functional Status Finding Observation Time Hearing Prob Loc none [id number]:58 Vision Problems yes [id number] Vision Correct Dev glasses [id number] Ambulation Asst Dev none [id number] Range of Motion full :01 Muscle Strength RUE 5 ROM full resist :01 Muscle Strength RLE 5 ROM full resist : Muscle Strength LUE 5 ROM full resist : Muscle Strength LLE 5 ROM full resist : Transfers assist x 1 : Ambulation in room : Balance steady : Bathing Assistance none :58 Eating Assistance none [...] RML clear : Breath Sounds RLL clear :01 Breath Sounds LASHELL clear : Breath Sounds LLL clear : Airway natural : Chest Tube no : Oxygen no :10 Oxygen Flow Rate ra :07 C-PAP no : BI-PAP no : Temp >100.4 no : Temp <96.8 no : Chills with rigors no : HR > 90bpm no : Respirations > 20 no : Systolic <90 no : headache stiff neck no : WBC > 72231 no : WBC < 4000 no : Rapid Resp no : VAD Type rosa-cath :05 VAD Location L chest : VAD Site Info discontinued : VAD Site Appearance WNL :05 VAD Site Color clear : VAD Site Patent no : VAD Dressing Type occlusive :05 Nursing Note PT. HAS COLONOSCOPY ON 02-18-15 AND WILL BE HERE FOR THAT PER PT. :49 Cognitive Status Finding Observation Time Oriented To [...] Yes :58 Draw an Object 1 Yes [id number] Mini Mental Total 25 points :58 Less than 20 Phys not applicable :58 Learning Ability comprehends well :00 Neurological no :00 Psychological yes : Physical no : Hearing no : Roll Forming Machine Set Up Operator Needed no : Sign Language no : Emotional no : Vision yes : Laguage no : Financial no : Vital signs Type Value Date Respiration Rate 20breaths per minute : Pulse 60beats per minute : Oxygen Saturation 100% :10 BP Systolic 145mmHg :10 BP Diastolic 68mmHg :10 Temperature 97.6F :10 Height 64inches :12 Weight 130.5LB :12 Social history Type Value Smoking Status NEVER SMOKER Treatment Plan No treatment plan text is available for this visit. Hospital discharge instructions Discharge Date/Time 02/16/15 @ 2103 Accompanied By Staff et friend Relationship other [...] N/A Diet Explained yes Follow up appt already scheduled Follow Up Appt D/T 5-7 days
--- OUTSIDE RECORDS SUMMARY | 2017-12-29 05:48 | XMS REPORT | Clinical Summary ---
Author Author Admin, QIE Organization [facility] Address Unknown Phone Unavailable Allergies, Adverse Reactions, [...] MD Benign positional vertigo ICD-386.11 Inactive Harinder Hernandze DO Colon cancer screening ICD-V76.51 Inactive Harinder [...] MG/0.3ML INJ SOAJ 1 INJ NEEDED EPINEPHRINE 76851311934 Active Tawnya Pardo MA Active PREDNISONE 20 MG TAB 1 tab twice daily for 3 day, then one daily for three days PREDNISONE 79727358696 No Longer Active Harinder Hernandez DO Active PREDNISONE 20 MG TAB 1 tablet twice daily for 2 days, then 1 tablet once daily for 2 days PREDNISONE 01693795320 No Longer Active Harinder Hernandez DO Active ASMANEX 120 METERED DOSES 220 MCG/INH INH AEPB 2 puffs orally twice daily MOMETASONE FUROATE 66390944646 Active Jeri Sosa RPT,RMA Active NIFEDIPINE ER 30 MG ORAL [id number] 1 daily NIFEDIPINE 87008440953 Active Tawnya Pardo MA Active TOPIRAMATE 25 MG TABS 1 tab po BID TOPIRAMATE 03324158066 No Longer Active Nettie Newberry APRN Active AMLODIPINE BESYLATE 5 MG ORAL TABS Take 1 tab po daily AMLODIPINE BESYLATE 33735112148 No Longer Active Nettie Newberry APRN Active MECLIZINE HCL 25 MG TAB 1 tablet three times daily for 3 days, then 1/2 tab three times daily for 3 days. MECLIZINE HCL 37696742256 No Longer Active Nettie Newberry APRN Active AMITRIPTYLINE HCL 25 MG ORAL TABS 1 q hs prn AMITRIPTYLINE HCL 46879062174 No Longer Active Nettie Newberry APRN Active DILAUDID 2 MG ORAL TABS Take 1/2 tab po every 4 hours as needed for pain 2014 HYDROMORPHONE HCL 36884846797 No Longer Active Nettie Newberry APRN Active CLOPIDOGREL BISULFATE 75 MG ORAL TABS 1 tab by mouth once daily CLOPIDOGREL BISULFATE 52197058488 Active Tawnya Pardo MA Active ATORVASTATIN CALCIUM 10 MG ORAL TABS 1 at bedtime ATORVASTATIN CALCIUM 73363169424 Active Tawnya Pardo MA Active LOVASTATIN 40 MG ORAL TABS Take 1 tab po every hs LOVASTATIN 96295122830 No Longer Active Harinder Hernandez DO Active PREDNISONE 20 MG TAB 2 tabs daily for 4 days, 1 tab daily for 4 days, 1/2 tab daily for 4 days PREDNISONE 37384623916 No Longer Active Harinder Hernandez DO Active LEVAQUIN 500 MG ORAL TABS Take 1 tab po daily x 8 days LEVOFLOXACIN 47358853516 No Longer Active Harinder Hernandez DO Active VENTOLIN HFA 108 (90 BASE) MCG/ACT AERS 2 -4 puffs four times a day PRN 2013 ALBUTEROL SULFATE 79827213047 No Longer Active Jeri Sosa RPT,RMA Active ACEBUTOLOL HCL 200 MG CAPS 1 cap in the morning and 2 caps in the evening ACEBUTOLOL HCL 46494733846 No Longer Active Harinder Hernandez DO Active CEFDINIR 300 MG ORAL CAPS take 1 cap po bid x 10 days CEFDINIR 11312405170 No Longer Active Harinder Hernandez DO Active LOVASTATIN 40 MG TABS 1 pill by mouth nightly for cholesterol LOVASTATIN 29447252764 No Longer Active Nettie Newberry APRN Active NITROSTAT 0.4 MG SUBL 1 tab under tongueas needed for chest pain ( may take 3 total, 5 min apart, then call 911) NITROGLYCERIN 46696231377 No Longer Active Nettie Newberry APRN Active POTASSIUM CHLORIDE CR 10 MEQ CPCR 1 capsule by mouth daily 02/14 POTASSIUM CHLORIDE 56345849203 No Longer Active Nettie Newberry APRN Active TESSALON PERLES 100 MG CAP 1 to 2 tablets by mouth 3 times daily as needed for cough BENZONATATE 49774672723 No Longer Active Nettie Newberry APRN Active THEOPHYLLINE ER 200 MG ORAL [id number] Take 1 tab every 12 hours THEOPHYLLINE 41845949177 Active Tawnya Pardo MA Active PREDNISONE 20 MG TAB 2 po qd x 5 days PREDNISONE 62242707740 No Longer Active Jae Morgan MD Active AZITHROMYCIN 250 MG TABS 2 po qd x 1 day, then 1 po qd x 4 days AZITHROMYCIN 54545758893 No Longer Active Jae Morgan MD Active PREDNISONE 20 MG TAB 1 tab twice daily for 3 day, then one daily for three days PREDNISONE 67635265992 No Longer Active Jae Morgan MD Active SINGULAIR 10 MG TABS 1 pill by mouth every evening for breathing. MONTELUKAST SODIUM 96885171608 Active Tawnya Pardo MA Active TYLENOL 325 MG TAB 3 by mouth q4h as needed ACETAMINOPHEN 76886975131 Active Harinder Hernandez DO Active POTASSIUM CHLORIDE ER 10 MEQ CR-TABS take 1 tab po daily POTASSIUM CHLORIDE 36504955444 No Longer Active Harinder Hernandez DO Active PREDNISONE 20 MG TAB 1 TID x 2 days, then 1 BID x 3 days, then 1 Daily x 3 days, then stop PREDNISONE 96817829746 No Longer Active Derrickllkvng Montemayor APRN Active LEVAQUIN 500 MG TAB 1 tablet by mouth daily LEVOFLOXACIN 06820703265 No Longer Active Jillkvng Montemayor APRN Active NEURONTIN 300 MG CAP 1 cap by mouth three times daily for restless leg 06/22 GABAPENTIN 52832640373 No Longer Active Harinder Hernandez DO Active BENZONATATE 100 MG CAPS 1 cap po TID PRN BENZONATATE 35085080574 No Longer Active Harinder Hernandez DO Active MONTELUKAST SODIUM 10 MG TABS 1 tab po in the evening MONTELUKAST SODIUM 79356753348 No Longer Active Harinder Hernandez DO Active MUPIROCIN 2 % OINT apply to affected area BID x 14 days MUPIROCIN 00239916655 No Longer Active Harinder Hernandez DO Active TYLENOL EXTRA STRENGTH 500 MG TABS as needed ACETAMINOPHEN 78371976726 No Longer Active Harinder Hernandez DO Active PREDNISONE 10 MG TABS 1 tab po daily PREDNISONE 06700587926 No Longer Active Harinder Hernandez DO Active PREDNISONE 20 MG TAB 2 tabs daily for 4 days, 1 tab daily for 4 days, 1/2 tab daily for 4 days PREDNISONE 90730479710 No Longer Active Harinder Hernandez DO Active AZITHROMYCIN 250 MG TABS 2 po qd x 1 day, then 1 po qd x 4 days AZITHROMYCIN 57018794630 No Longer Active Harinder Hernandez DO Active PREDNISONE 20 MG TAB 3 tabs today, then 1 tab twice daily for 3 day, then one daily for three days PREDNISONE 77448673834 No Longer Active Harinder Hernandez DO Active NIFEDIAC CC 30 MG [id number]-HEB 1 tablet daily for raynaud's syndrome NIFEDIPINE 44146462786 No Longer Active Tawnya Pardo MA Active AMBIEN 10 MG TAB 1/2 tab by mouth at bedtime as needed for sleep ZOLPIDEM TARTRATE 07003693319 Active Harinder Hernandez DO Active CLONAZEPAM 1 MG TABS 1 tablet at bedtime for insomnia and restless legs 09/14 CLONAZEPAM 08823235918 Active Kaylah Newberry Active CLONAZEPAM 0.5 MG TABS 1 tab po daily CLONAZEPAM 22622368389 No Longer Active Harinder Hernandez DO Active PREDNISONE 10 MG TAB 1 tablet daily for COPD PREDNISONE 93104004895 Active Tawnya Pardo MA Active PROAIR HFA 108 (90 BASE) MCG/ACT AERS 2 puffs four times a day as needed 2012 ALBUTEROL SULFATE 41729541519 Active Tawnya Pardo MA Active FLOVENT HFA 110 MCG/ACT AERO 2 puffs inhaled b.i.d. FLUTICASONE PROPIONATE HFA 90629225008 Active Tawnya Pardo MA Active ACIPHEX 20 MG TBEC 1 tab po daily RABEPRAZOLE SODIUM 75060674287 Active Tawnya Pardo MA Active CLONAZEPAM 0.5 MG TABS 1 tab po daily CLONAZEPAM 0.5 MG TABS 406090 CLONAZEPAM Inactive PREDNISONE 20 MG TAB 3 tabs today, then 1 tab twice daily for 3 day, then one daily for three days PREDNISONE 20 MG TAB 702328 PREDNISONE Inactive PREDNISONE 20 MG TAB 2 tabs daily for 4 days, 1 tab daily for 4 days, 1/2 tab daily for 4 days PREDNISONE 20 MG TAB 040153 PREDNISONE Inactive PREDNISONE 10 MG TABS 1 tab po daily PREDNISONE 10 MG TABS 382418 PREDNISONE Inactive TYLENOL EXTRA STRENGTH 500 MG TABS as needed TYLENOL EXTRA STRENGTH 500 MG TABS 165667 ACETAMINOPHEN Inactive MUPIROCIN 2 % OINT apply to affected area BID x 14 days MUPIROCIN 2 % OINT 545578 MUPIROCIN Inactive MONTELUKAST SODIUM 10 MG TABS 1 tab po in the evening MONTELUKAST SODIUM 10 MG TABS 739947 MONTELUKAST SODIUM Inactive BENZONATATE 100 MG CAPS 1 cap po TID PRN BENZONATATE 100 MG CAPS 863009 BENZONATATE Inactive NEURONTIN 300 MG CAP 1 cap by mouth three times daily for restless leg 06/22 NEURONTIN 300 MG CAP 740036 GABAPENTIN Inactive LEVAQUIN 500 MG TAB 1 tablet by mouth daily LEVAQUIN 500 MG TAB 894235 LEVOFLOXACIN Inactive PREDNISONE 20 MG TAB 1 TID x 2 days, then 1 BID x 3 days, then 1 Daily x 3 days, then stop PREDNISONE 20 MG TAB 820569 PREDNISONE Inactive POTASSIUM CHLORIDE ER 10 MEQ CR-TABS take 1 tab po daily POTASSIUM CHLORIDE ER 10 MEQ CR-TABS POTASSIUM CHLORIDE Inactive PREDNISONE 20 MG TAB 1 tab twice daily for 3 day, then one daily for three days PREDNISONE 20 MG TAB 819865 PREDNISONE Inactive TESSALON PERLES 100 MG CAP 1 to 2 tablets by mouth 3 times daily as needed for cough TESSALON PERLES 100 MG CAP 189102 BENZONATATE Inactive POTASSIUM CHLORIDE CR 10 MEQ [...] nightly for cholesterol LOVASTATIN 40 MG TABS 203246 LOVASTATIN Inactive CEFDINIR 300 MG ORAL CAPS take 1 cap po bid x 10 days CEFDINIR 300 MG ORAL CAPS 246279 CEFDINIR Inactive ACEBUTOLOL HCL 200 MG CAPS 1 cap in the morning and 2 caps in the evening ACEBUTOLOL HCL 200 MG CAPS 897493 ACEBUTOLOL HCL Inactive VENTOLIN HFA 108 (90 BASE) MCG/ACT AERS 2 -4 puffs four times a day PRN 2013 VENTOLIN HFA 108 (90 BASE) MCG/ACT AERS ALBUTEROL SULFATE Inactive LEVAQUIN 500 MG ORAL TABS Take 1 tab po daily x 8 days LEVAQUIN 500 MG ORAL TABS 075026 LEVOFLOXACIN Inactive PREDNISONE 20 MG TAB 2 tabs daily for 4 days, 1 tab daily for 4 days, 1/2 tab daily for 4 days PREDNISONE 20 MG TAB 702074 PREDNISONE Inactive LOVASTATIN 40 MG ORAL TABS Take 1 tab po every hs LOVASTATIN 40 MG ORAL TABS 961571 LOVASTATIN Inactive DILAUDID 2 MG ORAL TABS Take 1/2 tab po every 4 hours as needed for pain 2014 DILAUDID 2 MG ORAL TABS 463368 HYDROMORPHONE HCL Inactive AMITRIPTYLINE HCL 25 MG ORAL TABS 1 q hs prn AMITRIPTYLINE HCL 25 MG ORAL TABS 762089 AMITRIPTYLINE HCL Inactive MECLIZINE HCL 25 MG TAB 1 tablet three times daily for 3 days, then 1/2 tab three times daily for 3 days. MECLIZINE HCL 25 MG TAB 150592 MECLIZINE HCL Inactive AMLODIPINE BESYLATE 5 MG ORAL TABS Take 1 tab po daily AMLODIPINE BESYLATE 5 MG ORAL TABS 822265 AMLODIPINE BESYLATE Inactive TOPIRAMATE 25 MG TABS 1 tab po BID TOPIRAMATE 25 MG TABS 868275 TOPIRAMATE Inactive PREDNISONE 20 MG TAB 1 tablet twice daily for 2 days, then 1 tablet once daily for 2 days PREDNISONE 20 MG TAB 633280 PREDNISONE Inactive PREDNISONE 20 MG TAB 1 tab twice daily for 3 day, then one daily for three days PREDNISONE 20 MG TAB 920806 PREDNISONE Inactive AZITHROMYCIN 250 MG TABS 2 po qd x 1 day, then 1 po qd x 4 days AZITHROMYCIN 250 MG TABS 4099978 AZITHROMYCIN Inactive AZITHROMYCIN 250 MG TABS 2 po qd x 1 day, then 1 po qd x 4 days AZITHROMYCIN 250 MG TABS 2151475 AZITHROMYCIN Inactive PREDNISONE 20 MG TAB 2 po qd x 5 days PREDNISONE 20 MG TAB 137013 PREDNISONE Inactive Vital Signs Date Name Value [...] Panel - Chemistry sodium, serum 138 mmol/L 834-642 2973/09/24 potassium, serum 3.5 mmol/L 3.5-5.2 chloride, serum [...] Magnesium - Chemistry cholesterol, serum 180 mg/dL 701-712 8433/08/08 triglyceride, serum, fasting 92 mg/dL 30-200 HDL cholesterol, serum 66 mg/dL 32-96 LDL cholesterol, serum 96 mg/dL 0-130 sodium, serum 142 mmol/L 519-229 4606/08/08 carbon dioxide, venous blood 27.4 mmol/L 21.0-32.0 [...] 10.0-20.0 Encounters Code Encounter Date Provider Facility CPT-26004 Level 3 Est. Patient 09:58:58 CDT Harinder Cr [facility] CPT-32741 Level 3 Est. Patient 12:37:21 CDT Harinder Cr [facility] CPT-81187 Level 3 Est. Patient 18:37:17 CDT Harinder Cr [facility] CPT-18675 Level 4 Est. Patient 11:15:54 CDT Nettie Newberry [facility] CPT-60388 Level 3 Est. Patient 16:42:24 CDT Harinder Cr [facility] CPT-44186 Level 3 Est. Patient 15:03:36 CDT Harinder Cr [facility] CPT-63347 Level 3 Est. Patient 15:03:20 CDT Harinder Cr [facility] CPT-60400 Level 3 Est. Patient 12:14:34 CDT Harinder [facility] CPT-91846 Level 3 Est. Patient 13:47:15 CDT Harinder [facility] CPT-42879 Level 3 Est. Patient 14:08:24 CDT Harinder Cr [facility] CPT-26094 Level 3 Est. Patient 10:07:15 CDT Harinder Cr [facility] CPT-81702 Level 3 Est. Patient 10:06:59 CDT Harinder Cr [facility] CPT-07668 Level 3 Est. Patient 15:53:29 CDT Jae Morgan MD [facility] CPT-83939 Level 3 Est. Patient 17:19:04 CDT Harinder Hernandez [facility] CPT-55993 Level 3 Est. Patient 11:13:01 CDT Harinder Cr [facility] CPT-42069 Level 3 Est. Patient 09:03:58 CDT Harinder Hernandez [facility] CPT-03607 Level 3 Est. Patient 14:46:45 [employer] Harinder Cr [facility] CPT-03897 Level 3 Est. Patient 09:35:49 [employer]PER[employer] Harinder Hernandez [facility] CPT-33884 Level 3 Est. Patient 09:29:37 [employer] SUPER[employer] Harinder Cr [facility] CPT-78763 Level 3 Est. Patient 15:51:07 CDT Harinder Cr [facility] CPT-46577 Level 3 Est. Patient 18:13:13 CDT Harinder Cr [facility] CPT-73936 Level 3 Est. Patient 10:44:19 CDT Harinder Cr [facility] CPT-71257 Level 4 Est. 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 Patient 15:59:32 [employer]PER[employer] Harinder Cr [facility] Procedures Code Procedure Name Date Entry Date Standard Description CPT-TCMM Transitional Care Mgmt-Moderate 11:33:57 CDT CPT-54412 No Charge Offi Visit 14:11:29 CDT CPT-31111 Magnesium - LAB USE ONLY 10:45:44 CDT CPT-01616 Lipid - LAB USE ONLY 10:45:44 CDT CPT-20194 CBC - LAB USE ONLY 10:45:44 CDT CPT-25127 Venipuncture Draw Fee 10:45:43 CDT CPT-10838 Venipuncture Draw Fee 18:21:27 CDT CPT-JTINJ Asp/Joint Injection 18:38:04 CDT CPT-22032 Immunization Each Additional Inj 17:38:04 CDT CPT-93388 Immunization Single Admin 17:38:04 CDT CPT-14721 Prevnar 13 17:38:04 CDT CPT-45426 Fluzone Quadrivalent preservative free (>=3yrs.) 17:38: 04 CDT CPT-60482 No Charge Offi Visit 11:14:03 CDT CPT-71858 Chest 2V Frontal and Lat 14:00:18 CDT CPT-OV Office Visit 16:10:28 CDT CPT-JTINJ Asp/Joint Injection 09:03:57 CDT CPT-Cryo Cryotherapy 09:35:49 [employer]PER[employer] CPT-JTINJ Asp/Joint Injection 09:34:45 [employer] CPT-J2930 Solu Medrol 125 mg (Methyl Prednisolone Sodium Succinate) 20:37:27 CDT CPT-40985 Abx/Therapy Injection 20:37:27 CDT CPT-04696 Port a cath flush 08:15:51 CDT CPT-22516 Port a cath flush 09:54:16 CDT CPT-27165 Port a cath flush 09:38:02 CDT CPT-35779 Port a cath flush 11:00:27 [employer]
--- OUTSIDE RECORDS SUMMARY | 2017-12-29 05:52 | XMS REPORT | Clinical Summary ---
[...] TABLET 1 tablet by mouth daily SPIRONOLACTONE [id number] No Longer Active Jeri Nieto Active PREDNISONE 20 MG ORAL TABLET 2 tablets by mouth today, then 1 tablet by mouth days 2-3 PREDNISONE 90059193767 No Longer Active Jeri Nieto Active NITROSTAT 0.4 MG SUBLINGUAL TABLET SUBLINGUAL 1 tab SL q5min PRN chest pain NITROGLYCERIN 96649378005 Active Meenu Alejo LPN Active THEOPHYLLINE ER 300 MG ORAL TABLET EXTENDED RELEASE 12 HOUR 1 po BID THEOPHYLLINE 62490780984 Active Kortney Mccain Active POTASSIUM CHLORIDE ER 20 MEQ ORAL TABLET EXTENDED RELEASE 1 po q day POTASSIUM CHLORIDE 63810443674 Active Kortney Mccain Active POTASSIUM CHLORIDE 20 MEQ ORAL PACKET 1 tab po q day POTASSIUM CHLORIDE 88868605763 No Longer Active Kortney Mccain Active POTASSIUM CHLORIDE ER 10 MEQ ORAL CAPSULE EXTENDED RELEASE 1 capsule BID 2016 POTASSIUM CHLORIDE 04616195717 No Longer Active Kortney Mccain Active LASIX 20 MG ORAL TABLET 1 tablet by mouth every morning FUROSEMIDE 81806682509 No Longer Active Kortney Mccain Active FLUOXETINE HCL 10 MG ORAL CAPSULE 1 po qd for depression/anxiety FLUOXETINE HCL 58225054065 Active Harinder Hernandez DO Active VOLTAREN 1 % TRANSDERMAL GEL apply q 6-8 hour to left arm as needed for pain DICLOFENAC SODIUM 80943294851 Active Kortney Mccain Active ALBUTEROL SULFATE (2.5 MG/3ML) 0.083% INHALATION NEBULIZATION SOLUTION 1 vial neb q 4hrs for severe asthma. 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 NIFEDIPINE 01338679563 Active Kortney Mccain Active AMLODIPINE BESYLATE 5 MG ORAL TABLET 1 tablet by mouth daily 2016 AMLODIPINE BESYLATE 57252472262 No Longer Active Harinder Hernandez DO Active TOPAMAX 25 MG ORAL TABLET 1 tab po BID TOPIRAMATE 15666511186 Active Kortney Mccain Active FLUTICASONE PROPIONATE 50 MCG/ACT NASAL SUSPENSION 2 sprays per nostril daily PRN Allergies FLUTICASONE PROPIONATE 81656215698 Active Meenu Alejo LPN Active NIFEDIPINE ER 30 MG ORAL TABLET EXTENDED RELEASE 24 HOUR 1 daily NIFEDIPINE 49468657167 No Longer Active Harinder Hernandez DO Active FLOVENT HFA 110 MCG/ACT INHALATION AEROSOL 2 puffs inhaled b.i.d. FLUTICASONE PROPIONATE HFA 01561485240 Active Harinder Hernandez DO Active EPIPEN 2-BRUNA 0.3 MG/0.3ML INJECTION SOLUTION AUTO-INJECTOR 1 INJ NEEDED EPINEPHRINE 07931467030 Active Kortney Mccain Active PREDNISONE 20 MG ORAL TABLET 1 tab twice daily for 3 day, then one daily for three days PREDNISONE 70332462594 No Longer Active Harinder Hernandez DO Active PREDNISONE 20 MG ORAL TABLET 1 tablet twice daily for 2 days, then 1 tablet once daily for 2 days PREDNISONE 23294800927 No Longer Active Harinder Hernandez DO Active ASMANEX 120 METERED DOSES 220 MCG/INH INHALATION AEROSOL POWDER BREATH ACTIVATED 2 puffs orally twice daily MOMETASONE FUROATE 93945169789 Active Jeri Sosa LPN Active TOPIRAMATE 25 MG ORAL TABLET 1 tab po BID TOPIRAMATE 39925547090 No Longer Active Nettie King MAHENDRA Active AMLODIPINE BESYLATE 5 MG ORAL TABLET Take 1 tab po daily AMLODIPINE BESYLATE 20874508612 No Longer Active Nettie Newberry MAHENDRA Active MECLIZINE HCL 25 MG ORAL TABLET 1 tablet three times daily for 3 days, then 1/ 2 tab three times daily for 3 days. MECLIZINE HCL 63071486557 No Longer Active Nettieog Newberry APRN Active AMITRIPTYLINE HCL 25 MG ORAL TABLET 1 q hs prn AMITRIPTYLINE HCL 07339821575 No Longer Active Nettie Newberry MAHENDRA Active DILAUDID 2 MG ORAL TABLET Take 1/2 tab po every 4 hours as needed for pain HYDROMORPHONE HCL 44308783085 No Longer Active Nettieog Newberry APRN Active CLOPIDOGREL BISULFATE 75 MG ORAL TABLET 1 tab by mouth once daily CLOPIDOGREL BISULFATE 82490331755 Active Meenu Alejo LPN Active ATORVASTATIN CALCIUM 10 MG ORAL TABLET 1 at bedtime ATORVASTATIN CALCIUM 65198114567 Active Kortney Mccain Active LOVASTATIN 40 MG ORAL TABLET Take 1 tab po every hs LOVASTATIN 60355724725 No Longer Active Harinder Hernandez DO Active PREDNISONE 20 MG ORAL TABLET 2 tabs daily for 4 days, 1 tab daily for 4 days, 1/2 tab daily for 4 days PREDNISONE 58142725259 No Longer Active Harinder Hernandez DO Active LEVAQUIN 500 MG ORAL TABLET Take 1 tab po daily x 8 days LEVOFLOXACIN 63479030617 No Longer Active Harinder Hernandez DO Active VENTOLIN HFA 108 (90 Base) MCG/ACT INHALATION AEROSOL SOLUTION 2 -4 puffs four times a day PRN ALBUTEROL SULFATE 07479386459 No Longer Active Jeri Sosa LPN Active ACEBUTOLOL HCL 200 MG ORAL CAPSULE 1 cap in the morning and 2 caps in the evening ACEBUTOLOL HCL 19929016232 No Longer Active Harinder Hernandez DO Active CEFDINIR 300 MG ORAL CAPSULE take 1 cap po bid x 10 days CEFDINIR 52986301132 No Longer Active Harinder Hernandez DO Active LOVASTATIN 40 MG ORAL TABLET 1 pill by mouth nightly for cholesterol LOVASTATIN 27321009249 No Longer Active Nettie Newberry APRN Active NITROSTAT 0.4 MG SUBLINGUAL TABLET SUBLINGUAL 1 tab under tongueas needed for chest pain ( may take 3 total, 5 min apart, then call 911) NITROGLYCERIN 48453815344 No Longer Active Nettie Newberry APRN Active POTASSIUM CHLORIDE ER 10 MEQ ORAL CAPSULE EXTENDED RELEASE 1 capsule by mouth daily POTASSIUM CHLORIDE 76678698838 No Longer Active Nettie Newberry APRN Active TESSALON PERLES 100 MG ORAL CAPSULE 1 to 2 tablets by mouth 3 times daily as needed for cough BENZONATATE 00226771224 No Longer Active Nettie Newberry APRN Active PREDNISONE 20 MG ORAL TABLET 2 po qd x 5 days PREDNISONE 04232020029 No Longer Active Jae Morgan MD Active AZITHROMYCIN 250 MG ORAL TABLET 2 po qd x 1 day, then 1 po qd x 4 days 12/30 AZITHROMYCIN 48147050488 No Longer Active Jae Morgan MD Active PREDNISONE 20 MG ORAL TABLET 1 tab twice daily for 3 day, then one daily for three days PREDNISONE 32987599390 No Longer Active Jae Morgan MD Active SINGULAIR 10 MG ORAL TABLET 1 pill by mouth every evening for breathing. 2014 MONTELUKAST SODIUM 12172928448 Active Meenu Alejo LPN Active TYLENOL 325 MG ORAL TABLET 3 by mouth q4h as needed ACETAMINOPHEN 49933606380 Active Harinder Hernandez DO Active POTASSIUM CHLORIDE ER 10 MEQ ORAL TABLET EXTENDED RELEASE take 1 tab po daily POTASSIUM CHLORIDE 23714000274 No Longer Active Harinder Hernandez DO Active PREDNISONE 20 MG ORAL TABLET 1 TID x 2 days, then 1 BID x 3 days, then 1 Daily x 3 days, then stop PREDNISONE 90095235426 No Longer Active John Montemayor APRN Active LEVAQUIN 500 MG ORAL TABLET 1 tablet by mouth daily LEVOFLOXACIN 86647481640 No Longer Active Jillkvng Montemayor APRN Active NEURONTIN 300 MG ORAL CAPSULE 1 cap by mouth three times daily for restless leg GABAPENTIN 86511506698 No Longer Active Harinder Hernandez DO Active BENZONATATE 100 MG ORAL CAPSULE 1 cap po TID PRN BENZONATATE 24933193538 No Longer Active Harinder Hernandez DO Active MONTELUKAST SODIUM 10 MG ORAL TABLET 1 tab po in the evening 2014 MONTELUKAST SODIUM 43257331251 No Longer Active Harinder Hernandez DO Active MUPIROCIN 2 % EXTERNAL OINTMENT apply to affected area BID x 14 days MUPIROCIN 53929073058 No Longer Active Harinder Hernandez DO Active TYLENOL EXTRA STRENGTH 500 MG ORAL TABLET as needed ACETAMINOPHEN 71551687998 No Longer Active Harinder Hernandez DO Active PREDNISONE 10 MG ORAL TABLET 1 tab po daily PREDNISONE 18533101704 No Longer Active Harinder Hernandez DO Active PREDNISONE 20 MG ORAL TABLET 2 tabs daily for 4 days, 1 tab daily for 4 days, 1/2 tab daily for 4 days PREDNISONE 36449842293 No Longer Active Harinder Hernandez DO Active AZITHROMYCIN 250 MG ORAL TABLET 2 po qd x 1 day, then 1 po qd x 4 days 04/06 AZITHROMYCIN 28064261471 No Longer Active Harinder Hernandez DO Active PREDNISONE 20 MG ORAL TABLET 3 tabs today, then 1 tab twice daily for 3 day, then one daily for three days PREDNISONE 18514051485 No Longer Active Harinder Hernandez DO Active NIFEDIAC CC 30 MG ORAL TABLET EXTENDED RELEASE 24 HOUR 1 tablet daily for raynaud's syndrome NIFEDIPINE 59877852461 No Longer Active Tawnya Pardo MA Active AMBIEN 10 MG ORAL TABLET 1/2 tab by mouth at bedtime as needed for sleep 2013 ZOLPIDEM TARTRATE 39103531250 Active Meenu Alejo GUSTAVO Active CLONAZEPAM 1 MG ORAL TABLET 1 tablet at bedtime for insomnia and restless legs CLONAZEPAM 67144734713 Active Harinder Hernandez DO Active CLONAZEPAM 0.5 MG ORAL TABLET 1 tab po daily CLONAZEPAM 51973304363 No Longer Active Harinder Hernandez DO Active PREDNISONE 10 MG ORAL TABLET 1 tablet daily for COPD PREDNISONE 08459228649 Active Kortney Mccain Active PROAIR HFA 108 (90 Base) MCG/ACT INHALATION AEROSOL SOLUTION 2 puffs four times a day as needed ALBUTEROL SULFATE 82538101677 Active Harinder Hernandez DO Active FLOVENT HFA 110 MCG/ACT INHALATION AEROSOL 2 puffs inhaled b.i.d. FLUTICASONE PROPIONATE HFA 23446214580 Active Kortney Mccain Active ACIPHEX 20 MG ORAL TABLET DELAYED RELEASE 1 tab po daily RABEPRAZOLE SODIUM 17988329657 Active Kaylah Newberry Active CLONAZEPAM 0.5 MG ORAL TABLET 1 tab po daily CLONAZEPAM 0.5 MG ORAL TABLET 362291 CLONAZEPAM Inactive PREDNISONE 20 MG ORAL TABLET 3 tabs today, then 1 tab twice daily for 3 day, then one daily for three days PREDNISONE 20 MG ORAL TABLET 773551 PREDNISONE Inactive PREDNISONE 20 MG ORAL TABLET 2 tabs daily for 4 days, 1 tab daily for 4 days, 1/2 tab daily for 4 days PREDNISONE 20 MG ORAL TABLET 511455 PREDNISONE Inactive PREDNISONE 10 MG ORAL TABLET 1 tab po daily PREDNISONE 10 MG ORAL TABLET 869579 PREDNISONE Inactive TYLENOL EXTRA STRENGTH 500 MG ORAL TABLET as needed TYLENOL EXTRA STRENGTH 500 MG ORAL TABLET 996249 ACETAMINOPHEN Inactive MUPIROCIN 2 % EXTERNAL OINTMENT apply to affected area BID x 14 days MUPIROCIN 2 % EXTERNAL OINTMENT 075088 MUPIROCIN Inactive MONTELUKAST SODIUM 10 MG ORAL TABLET 1 tab po in the evening 2014 MONTELUKAST SODIUM 10 MG ORAL TABLET 988195 MONTELUKAST SODIUM Inactive BENZONATATE 100 MG ORAL CAPSULE 1 cap po TID PRN BENZONATATE 100 MG ORAL CAPSULE 453536 BENZONATATE Inactive NEURONTIN 300 MG ORAL CAPSULE 1 cap by mouth three times daily for restless leg NEURONTIN 300 MG ORAL CAPSULE 283613 GABAPENTIN Inactive LEVAQUIN 500 MG ORAL TABLET 1 tablet by mouth daily LEVAQUIN 500 MG ORAL TABLET 929772 LEVOFLOXACIN Inactive PREDNISONE 20 MG ORAL TABLET 1 TID x 2 days, then 1 BID x 3 days, then 1 Daily x 3 days, then stop PREDNISONE 20 MG ORAL TABLET 883910 PREDNISONE Inactive POTASSIUM CHLORIDE ER 10 MEQ ORAL TABLET EXTENDED RELEASE take 1 tab po daily POTASSIUM CHLORIDE ER 10 MEQ ORAL TABLET EXTENDED RELEASE POTASSIUM CHLORIDE Inactive PREDNISONE 20 MG ORAL TABLET 1 tab twice daily for 3 day, then one daily for three days PREDNISONE 20 MG ORAL TABLET 709673 PREDNISONE Inactive TESSALON PERLES 100 MG ORAL CAPSULE 1 to 2 tablets by mouth 3 times daily as needed for cough TESSALON PERLES 100 MG ORAL CAPSULE 413325 BENZONATATE Inactive POTASSIUM CHLORIDE ER 10 MEQ ORAL CAPSULE EXTENDED RELEASE 1 capsule by mouth daily POTASSIUM CHLORIDE ER 10 MEQ ORAL CAPSULE EXTENDED RELEASE POTASSIUM CHLORIDE Inactive NITROSTAT 0.4 MG SUBLINGUAL TABLET SUBLINGUAL 1 tab under tongueas needed for chest pain ( may take 3 total, 5 min apart, then call 911) NITROSTAT 0.4 MG SUBLINGUAL TABLET SUBLINGUAL 428803 NITROGLYCERIN Inactive LOVASTATIN 40 MG ORAL TABLET 1 pill by mouth nightly for cholesterol LOVASTATIN 40 MG ORAL TABLET 456506 LOVASTATIN Inactive CEFDINIR 300 MG ORAL CAPSULE take 1 cap po bid x 10 days CEFDINIR 300 MG ORAL CAPSULE 290391 CEFDINIR Inactive ACEBUTOLOL HCL 200 MG ORAL CAPSULE 1 cap in the morning and 2 caps in the evening ACEBUTOLOL HCL 200 MG ORAL CAPSULE 460254 ACEBUTOLOL HCL Inactive VENTOLIN HFA 108 (90 Base) MCG/ACT INHALATION AEROSOL SOLUTION 2 -4 puffs four times a day PRN VENTOLIN HFA 108 (90 Base) MCG/ ACT INHALATION AEROSOL SOLUTION ALBUTEROL SULFATE Inactive LEVAQUIN 500 MG ORAL TABLET Take 1 tab po daily x 8 days LEVAQUIN 500 MG ORAL TABLET 209127 LEVOFLOXACIN Inactive PREDNISONE 20 MG ORAL TABLET 2 tabs daily for 4 days, 1 tab daily for 4 days, 1/2 tab daily for 4 days PREDNISONE 20 MG ORAL TABLET 528557 PREDNISONE Inactive LOVASTATIN 40 MG ORAL TABLET Take 1 tab po every hs LOVASTATIN 40 MG ORAL TABLET 204997 LOVASTATIN Inactive DILAUDID 2 MG ORAL TABLET Take 1/2 tab po every 4 hours as needed for pain DILAUDID 2 MG ORAL TABLET 625411 HYDROMORPHONE HCL Inactive AMITRIPTYLINE HCL 25 MG ORAL TABLET 1 q hs prn AMITRIPTYLINE HCL 25 MG ORAL TABLET 916919 AMITRIPTYLINE HCL Inactive MECLIZINE HCL 25 MG ORAL TABLET 1 tablet three times daily for 3 days, then 1/ 2 tab three times daily for 3 days. MECLIZINE HCL 25 MG ORAL TABLET 382230 MECLIZINE HCL Inactive AMLODIPINE BESYLATE 5 MG ORAL TABLET Take 1 tab po daily AMLODIPINE BESYLATE 5 MG ORAL TABLET 192032 AMLODIPINE BESYLATE Inactive TOPIRAMATE 25 MG ORAL TABLET 1 tab po BID TOPIRAMATE 25 MG ORAL TABLET 634487 TOPIRAMATE Inactive PREDNISONE 20 MG ORAL TABLET 1 tablet twice daily for 2 days, then 1 tablet once daily for 2 days PREDNISONE 20 MG ORAL TABLET 276487 PREDNISONE Inactive PREDNISONE 20 MG ORAL TABLET 1 tab twice daily for 3 day, then one daily for three days PREDNISONE 20 MG ORAL TABLET 563774 PREDNISONE Inactive NIFEDIPINE ER 30 MG ORAL TABLET EXTENDED RELEASE 24 HOUR 1 daily NIFEDIPINE ER 30 MG ORAL TABLET EXTENDED RELEASE 24 HOUR NIFEDIPINE Inactive AMLODIPINE BESYLATE 5 MG ORAL TABLET 1 tablet by mouth daily 2016 AMLODIPINE BESYLATE 5 MG ORAL TABLET 999860 AMLODIPINE BESYLATE Inactive LASIX 20 MG ORAL TABLET 1 tablet by mouth every morning LASIX 20 MG ORAL TABLET 453068 FUROSEMIDE Inactive POTASSIUM CHLORIDE ER 10 MEQ ORAL CAPSULE EXTENDED RELEASE 1 capsule BID 2016 POTASSIUM CHLORIDE ER 10 MEQ ORAL CAPSULE EXTENDED RELEASE POTASSIUM CHLORIDE Inactive POTASSIUM CHLORIDE 20 MEQ ORAL PACKET 1 tab po q day POTASSIUM CHLORIDE 20 MEQ ORAL PACKET 2430960 POTASSIUM CHLORIDE Inactive PREDNISONE 20 MG ORAL TABLET 2 tablets by mouth today, then 1 tablet by mouth days 2-3 PREDNISONE 20 MG ORAL TABLET 890187 PREDNISONE Inactive SPIRONOLACTONE 25 MG ORAL TABLET 1 tablet by mouth daily SPIRONOLACTONE 25 MG ORAL TABLET 773134 SPIRONOLACTONE Inactive AZITHROMYCIN 250 MG ORAL TABLET 2 po qd x 1 day, then 1 po qd x 4 days 04/06 AZITHROMYCIN 250 MG ORAL TABLET 752303 AZITHROMYCIN Inactive AZITHROMYCIN 250 MG ORAL TABLET 2 po qd x 1 day, then 1 po qd x 4 days 12/30 AZITHROMYCIN 250 MG ORAL TABLET 103296 AZITHROMYCIN Inactive PREDNISONE 20 MG ORAL TABLET 2 po qd x 5 days PREDNISONE 20 MG ORAL TABLET 870411 PREDNISONE Inactive Vital Signs Date Name Value [...] Panel - Chemistry sodium, serum 140 mmol/L 727-498 8334/07/13 potassium, serum 3.2 mmol/L 3.5-5.2 chloride, serum 103 mmol/L 98-107 carbon dioxide, venous blood 26.9 mmol/L 21.0-32.0 blood glucose 93 mg/dL 65-110 calcium, serum 9.2 mg/dL 8.5-10.1 urea nitrogen, blood 13 mg/dL 7-18 creatinine, serum 0.84 mg/dL 0.60-1.30 sodium, serum 140 mmol/L 284-441 8638/08/21 potassium, serum 3.8 mmol/L 3.5-5.2 chloride, serum [...] ... - Chemistry sodium, serum 141 mmol/L 488-357 9560/08/07 carbon dioxide, venous blood 34.0 mmol/L 21.0-32.0 [...] 1.40 mg/dL 0.00-1.00 cholesterol, serum 192 mg/dL 398-356 7056/10/19 triglyceride, serum, fasting 71 mg/dL 30-200 HDL cholesterol, serum 72 mg/dL 32-60 LDL cholesterol, serum 106 mg/dL 0-130 Lab Report: THEOPHYLLINE - Toxicology theophylline level, serum 3.1 ug/mL 10.0-20.0 Encounters Code Encounter Date Provider Facility CPT-53535 Level 3 Est. Patient 12:36:15 ENGINEERING PSYCHOLOGIST Harinder Hernandez DO [facility] CPT-70325 Level 3 Est. Patient 15:14:45 ENGINEERING PSYCHOLOGIST Harinder Hernandez [facility] CPT-58096 Level 4 Est. Patient 14:45:25 CDT Harinder Hernandez [facility] CPT-82075 Level 4 Est. Patient 09:15:13 CDT Harinder Cr [facility] CPT-45446 Level 3 Est. Patient 11:51:58 CDT Harinder Hernandez [facility] CPT-96852 Level 3 Est. Patient 11:30:05 CDT Harinder Cr [facility] CPT-83256 Level 4 Est. Patient 10:19:23 CDT Harinder Cr [facility] CPT-81211 Level 3 Est. Patient 09:58:58 CDT Harinder Cr [facility] CPT-02951 Level 3 Est. Patient 12:37:21 CDT Harinder Cr [facility] CPT-68375 Level 3 Est. Patient 18:37:17 CDT Harinder Cr [facility] CPT-23982 Level 4 Est. Patient 11:15:54 CDT Nettie Newberry [facility] CPT-11704 Level 3 Est. Patient 16:42:24 CDT Harinder Cr [facility] CPT-13418 Level 3 Est. Patient 15:03:36 CDT Harinder Cr [facility] CPT-64917 Level 3 Est. Patient 15:03:20 CDT Harinder Cr [facility] CPT-21401 Level 3 Est. Patient 12:14:34 CDT Harinder Cr [facility] CPT-23886 Level 3 Est. Patient 13:47:15 CDT Harinder Cr [facility] CPT-30334 Level 3 Est. Patient 14:08:24 CDT Harinder Cr [facility] CPT-46576 Level 3 Est. Patient 10:07:15 CDT Harinder Hernandez [facility] CPT-51015 Level 3 Est. Patient 10:06:59 CDT Harinder Hernandez [facility] CPT-80869 Level 3 Est. Patient 15:53:29 CDT Jae Morgan MD [facility] CPT-34208 Level 3 Est. Patient 17:19:04 CDT Harinder Hernandez [facility] CPT-41697 Level 3 Est. Patient 11:13:01 CDT Harinder Hernandez [facility] CPT-64225 Level 3 Est. Patient 09:03:58 CDT Harinder Hernandez [facility] CPT-43329 Level 3 Est. Patient 14:46:45 ENGINEERING PSYCHOLOGIST Harinder Shaye David [facility] CPT-26091 Level 3 Est. Patient 09:35:49 ENGINEERING PSYCHOLOGIST Harinder Shaye David [facility] CPT-71263 Level 3 Est. Patient 09:29:37 ENGINEERING PSYCHOLOGIST Harinder Hernandez [facility] CPT-96209 Level 3 Est. Patient 15:51:07 CDT Harinder Hernandez [facility] CPT-51841 Level 3 Est. Patient 18:13:13 CDT Harinder Shaye [facility] CPT-68232 Level 3 Est. Patient 10:44:19 CDT Harinder Cr David [facility] CPT-11962 Level 4 Est. Patient 10:07:19 ENGINEERING PSYCHOLOGIST Harinder Cr [facility] CPT-81254 Level 3 Est. Patient 15:59:32 ENGINEERING PSYCHOLOGIST Harinder Cr [facility] Procedures Code Procedure Name Date Entry Date Standard Description CPT-98972 Abd compl w upright - XRAY USE ONLY 14:48:09 CDT 02/18 CPT-14108 Port a cath flush 13:46:05 CDT CPT-26540 Hip, complete, 2-3 views - XRAY USE ONLY 10:28:40 CDT CPT-10779 BMP - LAB USE ONLY 16:45:09 ENGINEERING PSYCHOLOGIST CPT-00896 Port a cath flush 12:00:13 ENGINEERING PSYCHOLOGIST CPT-TCMM Transitional Care Mgmt-Moderate 11:20:16 ENGINEERING PSYCHOLOGIST CPT-67577 First Vx - Ix admin for Medicare patients 17:35:15 CDT CPT-23855 Fluzone Preservative Free Intramuscular Suspension 17:35 :15 CDT CPT-83354 Microalbumin - LAB USE ONLY 11:52:05 CDT CPT-TCMM Transitional Care Mgmt-Moderate 11:33:57 CDT CPT-52544 No Charge Offi Visit 14:11:29 CDT CPT-65646 Magnesium - LAB USE ONLY 10:45:44 CDT CPT-23827 Lipid - LAB USE ONLY 10:45:44 CDT CPT-38552 CBC - LAB USE ONLY 10:45:44 CDT CPT-14747 Venipuncture Draw Fee 10:45:43 CDT CPT-75282 Venipuncture Draw Fee 18:21:27 CDT CPT-JTINJ Asp/Joint Injection 18:38:04 CDT CPT-02212 Immunization Each Additional Inj 17:38:04 CDT CPT-32354 Immunization Single Admin 17:38:04 CDT CPT-93387 Prevnar 13 17:38:04 CDT CPT-90971 Fluzone Quadrivalent preservative free (>=3yrs.) 17:38: 04 CDT CPT-04422 No Charge Offi Visit 11:14:03 CDT CPT-99923 Chest 2V Frontal and Lat 14:00:18 CDT CPT-OV Office Visit 16:10:28 CDT CPT-JTINJ Asp/Joint Injection 09:03:57 CDT CPT-Cryo Cryotherapy 09:35:49 ENGINEERING PSYCHOLOGIST CPT-JTINJ Asp/Joint Injection 09:34:45 ENGINEERING PSYCHOLOGIST CPT-J2930 Solu Medrol 125 mg (Methyl Prednisolone Sodium Succinate) 20:37:27 CDT CPT-02721 Abx/Therapy Injection 20:37:27 CDT CPT-95519 Port a cath flush 08:15:51 CDT CPT-84996 Port a cath flush 09:54:16 CDT CPT-60065 Port a cath flush 09:38:02 CDT CPT-73555 Port a cath flush 11:00:27 ENGINEERING PSYCHOLOGIST
--- OUTSIDE RECORDS SUMMARY | 2017-12-29 05:53 | XMS REPORT | Clinical Summary ---
Author Author Admin, QIE Organization [facility] Address Unknown Phone Unavailable Allergies, Adverse Reactions, [...] 1 po qd for depression/anxiety FLUOXETINE HCL 13136752435 Active Harinder Hernandez DO Active VOLTAREN 1 % GEL apply q 6-8 hour to left arm as needed for pain DICLOFENAC SODIUM 71853027458 Active Harinder Hernandez DO Active LASIX 20 MG TAB 1 tablet by mouth every morning FUROSEMIDE 39315716756 Active Kortney Mccain Active POTASSIUM CHLORIDE 20 MEQ ORAL PACK 1 tab po BID POTASSIUM CHLORIDE 73788103704 Active Kortney Mccain Active ALBUTEROL SULFATE 0.083 % NEBU SOLN 1 vial neb q 4hrs for severe asthma. 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 FLUTICASONE PROPIONATE HFA 13525454542 Active Harinder Hernandez DO Active POTASSIUM CHLORIDE CR 10 MEQ CPCR 1 capsule by mouth daily POTASSIUM CHLORIDE 29080536913 Active Harinder Hernandez DO Active EPIPEN 2-BRUNA 0.3 MG/0.3ML INJ SOAJ 1 INJ NEEDED EPINEPHRINE 93378332653 Active Harinder Hernandez DO Active PREDNISONE 20 MG TAB 1 tab twice daily for 3 day, then one daily for three days PREDNISONE 31399345018 No Longer Active Harinder Hernandez DO Active PREDNISONE 20 MG TAB 1 tablet twice daily for 2 days, then 1 tablet once daily for 2 days PREDNISONE 70648604259 No Longer Active Harinder Hernandez DO Active ASMANEX 120 METERED DOSES 220 MCG/INH INH AEPB 2 puffs orally twice daily MOMETASONE FUROATE 93956920526 Active Jeri Sosa RPT,RMA Active TOPIRAMATE 25 MG TABS 1 tab po BID TOPIRAMATE 67746768251 No Longer Active Nettie Newberry APRN Active AMLODIPINE BESYLATE 5 MG ORAL TABS Take 1 tab po daily AMLODIPINE BESYLATE 23428080556 No Longer Active Nettie Newberry APRN Active MECLIZINE HCL 25 MG TAB 1 tablet three times daily for 3 days, then 1/2 tab three times daily for 3 days. MECLIZINE HCL 40307420690 No Longer Active Nettie Newberry APRN Active AMITRIPTYLINE HCL 25 MG ORAL TABS 1 q hs prn AMITRIPTYLINE HCL 88237399038 No Longer Active Nettie Newberry APRN Active DILAUDID 2 MG ORAL TABS Take 1/2 tab po every 4 hours as needed for pain 2014 HYDROMORPHONE HCL 66428233961 No Longer Active Nettie Newberry APRN Active CLOPIDOGREL BISULFATE 75 MG ORAL TABS 1 tab by mouth once daily CLOPIDOGREL BISULFATE 71389710097 Active Harinder Hernandez DO Active ATORVASTATIN CALCIUM 10 MG ORAL TABS 1 at bedtime ATORVASTATIN CALCIUM 11594709600 Active Tawnya Pardo MA Active LOVASTATIN 40 MG ORAL TABS Take 1 tab po every hs LOVASTATIN 97137400157 No Longer Active Harinder Hernandez DO Active PREDNISONE 20 MG TAB 2 tabs daily for 4 days, 1 tab daily for 4 days, 1/2 tab daily for 4 days PREDNISONE 30105224234 No Longer Active Harinder Hernandez DO Active LEVAQUIN 500 MG ORAL TABS Take 1 tab po daily x 8 days LEVOFLOXACIN 81433155001 No Longer Active Harinder Hernandez DO Active VENTOLIN HFA 108 (90 BASE) MCG/ACT AERS 2 -4 puffs four times a day PRN 2013 ALBUTEROL SULFATE 13352922701 No Longer Active Jeri Sosa RPT,RMA Active ACEBUTOLOL HCL 200 MG CAPS 1 cap in the morning and 2 caps in the evening ACEBUTOLOL HCL 09991023417 No Longer Active Harinder Hernandez DO Active CEFDINIR 300 MG ORAL CAPS take 1 cap po bid x 10 days CEFDINIR 76484387677 No Longer Active Harinder Heranndez DO Active LOVASTATIN 40 MG TABS 1 pill by mouth nightly for cholesterol LOVASTATIN 52045515863 No Longer Active Nettie Newberry APRN Active NITROSTAT 0.4 MG SUBL 1 tab under tongueas needed for chest pain ( may take 3 total, 5 min apart, then call 911) NITROGLYCERIN 62567366872 No Longer Active Nettie Newberry APRN Active POTASSIUM CHLORIDE CR 10 MEQ CPCR 1 capsule by mouth daily 02/14 POTASSIUM CHLORIDE 26019182261 No Longer Active Nettie Newberry APRN Active TESSALON PERLES 100 MG CAP 1 to 2 tablets by mouth 3 times daily as needed for cough BENZONATATE 24952668166 No Longer Active Nettie Newberry MAHENDRA Active THEOPHYLLINE ER 200 MG ORAL [id number] Take 1 tab every 12 hours THEOPHYLLINE 01255234400 Active Kortney Mccain Active PREDNISONE 20 MG TAB 2 po qd x 5 days PREDNISONE 37021790045 No Longer Active Jae Morgan MD Active AZITHROMYCIN 250 MG TABS 2 po qd x 1 day, then 1 po qd x 4 days AZITHROMYCIN 30850881186 No Longer Active Jae Morgan MD Active PREDNISONE 20 MG TAB 1 tab twice daily for 3 day, then one daily for three days PREDNISONE 90162154308 No Longer Active Jae Morgan MD Active SINGULAIR 10 MG TABS 1 pill by mouth every evening for breathing. MONTELUKAST SODIUM 26878961198 Active Tawnya Pardo MA Active TYLENOL 325 MG TAB 3 by mouth q4h as needed ACETAMINOPHEN 73045601823 Active Harinder Hernandez DO Active POTASSIUM CHLORIDE ER 10 MEQ CR-TABS take 1 tab po daily POTASSIUM CHLORIDE 38278751700 No Longer Active Harinder Hernandez DO Active PREDNISONE 20 MG TAB 1 TID x 2 days, then 1 BID x 3 days, then 1 Daily x 3 days, then stop PREDNISONE 09156516319 No Longer Active Jillkvng Frashai MCCRAY Active LEVAQUIN 500 MG TAB 1 tablet by mouth daily LEVOFLOXACIN 37732363144 No Longer Active Jillina Frazell MAHENDRA Active NEURONTIN 300 MG CAP 1 cap by mouth three times daily for restless leg 06/22 GABAPENTIN 54597628022 No Longer Active Harinder Hernandez DO Active BENZONATATE 100 MG CAPS 1 cap po TID PRN BENZONATATE 81165144991 No Longer Active Harinder Hernandez DO Active MONTELUKAST SODIUM 10 MG TABS 1 tab po in the evening MONTELUKAST SODIUM 23702060268 No Longer Active Harinder eHrnandez DO Active MUPIROCIN 2 % OINT apply to affected area BID x 14 days MUPIROCIN 06491030487 No Longer Active Harinder Hernandez DO Active TYLENOL EXTRA STRENGTH 500 MG TABS as needed ACETAMINOPHEN 00519842520 No Longer Active Harinder Hernandez DO Active PREDNISONE 10 MG TABS 1 tab po daily PREDNISONE 06584643506 No Longer Active Harinder Hernandez DO Active PREDNISONE 20 MG TAB 2 tabs daily for 4 days, 1 tab daily for 4 days, 1/2 tab daily for 4 days PREDNISONE 26445224402 No Longer Active Harinder Hernandez DO Active AZITHROMYCIN 250 MG TABS 2 po qd x 1 day, then 1 po qd x 4 days AZITHROMYCIN 90241646800 No Longer Active Harinder Hernandez DO Active PREDNISONE 20 MG TAB 3 tabs today, then 1 tab twice daily for 3 day, then one daily for three days PREDNISONE 06471211793 No Longer Active Harinder Hernandez DO Active NIFEDIAC CC 30 MG [id number] 1 tablet daily for raynaud's syndrome NIFEDIPINE 42083071019 No Longer Active Tawnya Pardo MA Active AMBIEN 10 MG TAB 1/2 tab by mouth at bedtime as needed for sleep ZOLPIDEM TARTRATE 98016861536 Active Ciera Pimentel Active CLONAZEPAM 1 MG TABS 1 tablet at bedtime for insomnia and restless legs 09/14 CLONAZEPAM 79085790962 Active Harinder Hernandez DO Active CLONAZEPAM 0.5 MG TABS 1 tab po daily CLONAZEPAM 14292033130 No Longer Active Harinder Hernandez DO Active PREDNISONE 10 MG TAB 1 tablet daily for COPD PREDNISONE 52540855616 Active Ciera Pimentel Active PROAIR HFA 108 (90 BASE) MCG/ACT AERS 2 puffs four times a day as needed 2012 ALBUTEROL SULFATE 50682398096 Active Harinder Hernandez DO Active FLOVENT HFA 110 MCG/ACT AERO 2 puffs inhaled b.i.d. FLUTICASONE PROPIONATE HFA 70749669192 Active Kortney Mccain Active ACIPHEX 20 MG TBEC 1 tab po daily RABEPRAZOLE SODIUM 07381397854 Active Kaylah Rohith Active CLONAZEPAM 0.5 MG TABS 1 tab po daily CLONAZEPAM 0.5 MG TABS 514924 CLONAZEPAM Inactive PREDNISONE 20 MG TAB 3 tabs today, then 1 tab twice daily for 3 day, then one daily for three days PREDNISONE 20 MG TAB 857892 PREDNISONE Inactive PREDNISONE 20 MG TAB 2 tabs daily for 4 days, 1 tab daily for 4 days, 1/2 tab daily for 4 days PREDNISONE 20 MG TAB 107889 PREDNISONE Inactive PREDNISONE 10 MG TABS 1 tab po daily PREDNISONE 10 MG TABS 011657 PREDNISONE Inactive TYLENOL EXTRA STRENGTH 500 MG TABS as needed TYLENOL EXTRA STRENGTH 500 MG TABS 003466 ACETAMINOPHEN Inactive MUPIROCIN 2 % OINT apply to affected area BID x 14 days MUPIROCIN 2 % OINT 416798 MUPIROCIN Inactive MONTELUKAST SODIUM 10 MG TABS 1 tab po in the evening MONTELUKAST SODIUM 10 MG TABS 681192 MONTELUKAST SODIUM Inactive BENZONATATE 100 MG CAPS 1 cap po TID PRN BENZONATATE 100 MG CAPS 860705 BENZONATATE Inactive NEURONTIN 300 MG CAP 1 cap by mouth three times daily for restless leg 06/22 NEURONTIN 300 MG CAP 809670 GABAPENTIN Inactive LEVAQUIN 500 MG TAB 1 tablet by mouth daily LEVAQUIN 500 MG TAB 011673 LEVOFLOXACIN Inactive PREDNISONE 20 MG TAB 1 TID x 2 days, then 1 BID x 3 days, then 1 Daily x 3 days, then stop PREDNISONE 20 MG TAB 977117 PREDNISONE Inactive POTASSIUM CHLORIDE ER 10 MEQ CR-TABS take 1 tab po daily POTASSIUM CHLORIDE ER 10 MEQ CR-TABS POTASSIUM CHLORIDE Inactive PREDNISONE 20 MG TAB 1 tab twice daily for 3 day, then one daily for three days PREDNISONE 20 MG TAB 303421 PREDNISONE Inactive TESSALON PERLES 100 MG CAP 1 to 2 tablets by mouth 3 times daily as needed for cough TESSALON PERLES 100 MG CAP 920347 BENZONATATE Inactive POTASSIUM CHLORIDE CR 10 MEQ CPCR 1 capsule by mouth daily 02/14 POTASSIUM CHLORIDE CR 10 MEQ CPCR POTASSIUM CHLORIDE Inactive NITROSTAT 0.4 MG SUBL 1 tab under tongueas needed for chest pain ( may take 3 total, 5 min apart, then call 911) NITROSTAT 0.4 MG SUBL 670618 NITROGLYCERIN Inactive LOVASTATIN 40 MG TABS 1 pill by mouth nightly for cholesterol LOVASTATIN 40 MG TABS LOVASTATIN Inactive CEFDINIR 300 MG ORAL CAPS take 1 cap po bid x 10 days CEFDINIR 300 MG ORAL CAPS 438166 CEFDINIR Inactive ACEBUTOLOL HCL 200 MG CAPS 1 cap in the morning and 2 caps in the evening ACEBUTOLOL HCL 200 MG CAPS 368859 ACEBUTOLOL HCL Inactive VENTOLIN HFA 108 (90 BASE) MCG/ACT AERS 2 -4 puffs four times a day PRN 2013 VENTOLIN HFA 108 (90 BASE) MCG/ACT AERS ALBUTEROL SULFATE Inactive LEVAQUIN 500 MG ORAL TABS Take 1 tab po daily x 8 days LEVAQUIN 500 MG ORAL TABS 059435 LEVOFLOXACIN Inactive PREDNISONE 20 MG TAB 2 tabs daily for 4 days, 1 tab daily for 4 days, 1/2 tab daily for 4 days PREDNISONE 20 MG TAB 852677 PREDNISONE Inactive LOVASTATIN 40 MG ORAL TABS Take 1 tab po every hs LOVASTATIN 40 MG ORAL TABS LOVASTATIN Inactive DILAUDID 2 MG ORAL TABS Take 1/2 tab po every 4 hours as needed for pain 2014 DILAUDID 2 MG ORAL TABS 636287 HYDROMORPHONE HCL Inactive AMITRIPTYLINE HCL 25 MG ORAL TABS 1 q hs prn AMITRIPTYLINE HCL 25 MG ORAL TABS 161180 AMITRIPTYLINE HCL Inactive MECLIZINE HCL 25 MG TAB 1 tablet three times daily for 3 days, then 1/2 tab three times daily for 3 days. MECLIZINE HCL 25 MG TAB 323154 MECLIZINE HCL Inactive AMLODIPINE BESYLATE 5 MG ORAL TABS Take 1 tab po daily AMLODIPINE BESYLATE 5 MG ORAL TABS 558330 AMLODIPINE BESYLATE Inactive TOPIRAMATE 25 MG TABS 1 tab po BID TOPIRAMATE 25 MG TABS 409341 TOPIRAMATE Inactive PREDNISONE 20 MG TAB 1 tablet twice daily for 2 days, then 1 tablet once daily for 2 days PREDNISONE 20 MG TAB 858040 PREDNISONE Inactive PREDNISONE 20 MG TAB 1 tab twice daily for 3 day, then one daily for three days PREDNISONE 20 MG TAB 127822 PREDNISONE Inactive NIFEDIPINE ER 30 MG ORAL [id number] 1 daily NIFEDIPINE ER 30 MG ORAL [id number] NIFEDIPINE Inactive AMLODIPINE BESYLATE 5 MG TABS 1 tablet by mouth daily AMLODIPINE BESYLATE 5 MG TABS 281607 AMLODIPINE BESYLATE Inactive AZITHROMYCIN 250 MG TABS 2 po qd x 1 day, then 1 po qd x 4 days AZITHROMYCIN 250 MG TABS 6174345 AZITHROMYCIN Inactive AZITHROMYCIN 250 MG TABS 2 po qd x 1 day, then 1 po qd x 4 days AZITHROMYCIN 250 MG TABS 3380172 AZITHROMYCIN Inactive PREDNISONE 20 MG TAB 2 po qd x 5 days PREDNISONE 20 MG TAB 460482 PREDNISONE Inactive Vital Signs Date Name Value [...] Panel - Chemistry sodium, serum 137 mmol/L 995-348 7088/01/03 potassium, serum 3.4 mmol/L 3.5-5.2 chloride, serum 102 mmol/L 98-107 carbon dioxide, venous blood 29.2 mmol/L 21.0-32.0 blood glucose 87 mg/dL 65-110 calcium, serum 8.5 mg/dL 8.5-10.1 urea nitrogen, blood 8 mg/dL 7-18 creatinine, serum 0.82 mg/dL 0.55-1.30 sodium, serum 140 mmol/L 485-799 3839/07/13 potassium, serum 3.2 mmol/L 3.5-5.2 chloride, serum [...] Magnesium - Chemistry cholesterol, serum 180 mg/dL 598-313 9888/08/08 triglyceride, serum, fasting 92 mg/dL 30-200 HDL cholesterol, serum 66 mg/dL 32-96 LDL cholesterol, serum 96 mg/dL 0-130 sodium, serum 142 mmol/L 311-293 8338/08/08 carbon dioxide, venous blood 27.4 mmol/L 21.0-32.0 [...] 10.0-20.0 Encounters Code Encounter Date Provider Facility CPT-45143 Level 4 Est. Patient 09:15:13 CDT Harinder Cr [facility] [place] CPT-94390 Level 3 Est. Patient 11:51:58 CDT Harinder Cr [facility] CPT-46600 Level 3 Est. Patient 11:30:05 CDT Harinder Hernandez [facility] CPT-50937 Level 4 Est. Patient 10:19:23 CDT Harinder Hernandez [facility] CPT-46066 Level 3 Est. Patient 09:58:58 CDT Harinder Hernandez [facility] CPT-29535 Level 3 Est. Patient 12:37:21 CDT Harinder Hernandez [facility] CPT-27970 Level 3 Est. Patient 18:37:17 CDT Harinder Hernandez [facility] CPT-40003 Level 4 Est. Patient 11:15:54 CDT Nettie Newberry APRN [facility] CPT-80810 Level 3 Est. Patient 16:42:24 CDT Harinder Hernandez [facility] CPT-06539 Level 3 Est. Patient 15:03:36 CDT Harinder Hernandez [facility] CPT-19253 Level 3 Est. Patient 15:03:20 CDT Harinder Hernandez [facility] CPT-42972 Level 3 Est. Patient 12:14:34 CDT Harinder Hernandez [facility] CPT-16296 Level 3 Est. Patient 13:47:15 CDT Harinder Hernandez [facility] CPT-85946 Level 3 Est. Patient 14:08:24 CDT Harinder Cr [facility] CPT-75516 Level 3 Est. Patient 10:07:15 CDT Harinder Hernandez [facility] CPT-73337 Level 3 Est. Patient 10:06:59 CDT Harinder Cr [facility] CPT-53104 Level 3 Est. Patient 15:53:29 CDT Jae Morgan MD [facility] CPT-82259 Level 3 Est. Patient 17:19:04 CDT Harinder Hernandez [facility] CPT-72055 Level 3 Est. Patient 11:13:01 CDT Harinder Hernandez [facility] CPT-42451 Level 3 Est. Patient 09:03:58 CDT Harinder Hernandez [facility] CPT-37684 Level 3 Est. Patient 14:46:45 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 Harinder Hernandez [facility] CPT-65412 Level 3 Est. Patient 09:35:49 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 Harinder Hernandez [facility] CPT-74060 Level 3 Est. Patient 09:29:37 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 Harinder Hernandez [facility] CPT-89614 Level 3 Est. Patient 15:51:07 CDT Harinder Hernandez [facility] CPT-52090 Level 3 Est. Patient 18:13:13 CDT Harinder Hernandez [facility] CPT-00748 Level 3 Est. Patient 10:44:19 CDT Harinder Hernandez [facility] CPT-75886 Level 4 Est. Patient 10:07:19 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 Harinder Hernandez [facility] CPT-49414 Level 3 Est. Patient 15:59:32 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 Harinder Hernandez [facility] Procedures Code Procedure Name Date Entry Date Standard Description CPT-58025 Port a cath flush 13:46:05 CDT CPT-09352 Hip, complete, 2-3 views - XRAY USE ONLY 10:28:40 CDT CPT-65185 BMP - LAB USE ONLY 16:45:09 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 CPT-22041 Port a cath flush 12:00:13 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 CPT-TCMM Transitional Care Mgmt-Moderate 11:20:16 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 CPT-11324 First Vx - Ix admin for Medicare patients 17:35:15 CDT CPT-43310 Fluzone Preservative Free Intramuscular Suspension 17:35 :15 CDT CPT-08111 Microalbumin - LAB USE ONLY 11:52:05 CDT CPT-TCMM Transitional Care Mgmt-Moderate 11:33:57 CDT CPT-93095 No Charge Offi Visit 14:11:29 CDT CPT-47945 Magnesium - LAB USE ONLY 10:45:44 CDT CPT-32534 Lipid - LAB USE ONLY 10:45:44 CDT CPT-59406 CBC - LAB USE ONLY 10:45:44 CDT CPT-56688 Venipuncture Draw Fee 10:45:43 CDT CPT-37816 Venipuncture Draw Fee 18:21:27 CDT CPT-JTINJ Asp/Joint Injection 18:38:04 CDT CPT-06698 Immunization Each Additional Inj 17:38:04 CDT CPT-68082 Immunization Single Admin 17:38:04 CDT CPT-32827 Prevnar 13 17:38:04 CDT CPT-37503 Fluzone Quadrivalent preservative free (>=3yrs.) 17:38: 04 CDT CPT-14894 No Charge Offi Visit 11:14:03 CDT CPT-00498 Chest 2V Frontal and Lat 14:00:18 CDT CPT-OV Office Visit 16:10:28 CDT CPT-JTINJ Asp/Joint Injection 09:03:57 CDT CPT-Cryo Cryotherapy 09:35:49 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 CPT-JTINJ Asp/Joint Injection 09:34:45 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 CPT-J2930 Solu Medrol 125 mg (Methyl Prednisolone Sodium Succinate) 20:37:27 CDT CPT-50873 Abx/Therapy Injection 20:37:27 CDT CPT-96975 Port a cath flush 08:15:51 CDT CPT-08064 Port a cath flush 09:54:16 CDT CPT-13639 Port a cath flush 09:38:02 CDT CPT-82128 Port a cath flush 11:00:27 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
--- OUTSIDE RECORDS SUMMARY | 2017-12-29 05:55 | XMS REPORT | Clinical Summary ---
[...] TABLET 1 tablet by mouth daily SPIRONOLACTONE [id number] No Longer Active Jeri Nieto Active PREDNISONE 20 MG ORAL TABLET 2 tablets by mouth today, then 1 tablet by mouth days 2-3 PREDNISONE 26092171936 No Longer Active Jeri Nieto Active NITROSTAT 0.4 MG SUBLINGUAL TABLET SUBLINGUAL 1 tab SL q5min PRN chest pain NITROGLYCERIN 21132033948 Active Meenu Alejo LPN Active THEOPHYLLINE ER 300 MG ORAL TABLET EXTENDED RELEASE 12 HOUR 1 po BID THEOPHYLLINE 65466061007 Active Kortney Mccain Active POTASSIUM CHLORIDE ER 20 MEQ ORAL TABLET EXTENDED RELEASE 1 po q day POTASSIUM CHLORIDE 46014350839 Active Kortney Mccain Active POTASSIUM CHLORIDE 20 MEQ ORAL PACKET 1 tab po q day POTASSIUM CHLORIDE 81015477289 No Longer Active Kortney Mccain Active POTASSIUM CHLORIDE ER 10 MEQ ORAL CAPSULE EXTENDED RELEASE 1 capsule BID 2016 POTASSIUM CHLORIDE 27917706709 No Longer Active Kortney Mccain Active LASIX 20 MG ORAL TABLET 1 tablet by mouth every morning FUROSEMIDE 42563471628 No Longer Active Kortney Mccain Active FLUOXETINE HCL 10 MG ORAL CAPSULE 1 po qd for depression/anxiety FLUOXETINE HCL 71167437466 Active Meenu Alejo LPN Active VOLTAREN 1 % TRANSDERMAL GEL apply q 6-8 hour to left arm as needed for pain DICLOFENAC SODIUM 41343090986 Active Kortney Mccain Active ALBUTEROL SULFATE (2.5 MG/3ML) 0.083% INHALATION NEBULIZATION SOLUTION 1 vial neb q 4hrs for severe asthma. 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 NIFEDIPINE 69968434168 Active Kortney Mccain Active AMLODIPINE BESYLATE 5 MG ORAL TABLET 1 tablet by mouth daily 2016 AMLODIPINE BESYLATE 14599819730 No Longer Active Harinder Hernandez DO Active TOPAMAX 25 MG ORAL TABLET 1 tab po BID TOPIRAMATE 37126631134 Active Kortney Mccain Active FLUTICASONE PROPIONATE 50 MCG/ACT NASAL SUSPENSION 2 sprays per nostril daily PRN Allergies FLUTICASONE PROPIONATE 03860421903 Active Meenu Alejo LPN Active NIFEDIPINE ER 30 MG ORAL TABLET EXTENDED RELEASE 24 HOUR 1 daily NIFEDIPINE 65444467765 No Longer Active Harinder Hernandez DO Active FLOVENT HFA 110 MCG/ACT INHALATION AEROSOL 2 puffs inhaled b.i.d. FLUTICASONE PROPIONATE HFA 13080356089 Active Harinder Hernandez DO Active EPIPEN 2-BRUNA 0.3 MG/0.3ML INJECTION SOLUTION AUTO-INJECTOR 1 INJ NEEDED EPINEPHRINE 72590763414 Active Meenu Alejo LPN Active PREDNISONE 20 MG ORAL TABLET 1 tab twice daily for 3 day, then one daily for three days PREDNISONE 98191134644 No Longer Active Harinder Hernandez DO Active PREDNISONE 20 MG ORAL TABLET 1 tablet twice daily for 2 days, then 1 tablet once daily for 2 days PREDNISONE 41278117244 No Longer Active Harinder Hernandez DO Active ASMANEX 120 METERED DOSES 220 MCG/INH INHALATION AEROSOL POWDER BREATH ACTIVATED 2 puffs orally twice daily MOMETASONE FUROATE 82424617328 Active Jeri Sosa LPN Active TOPIRAMATE 25 MG ORAL TABLET 1 tab po BID TOPIRAMATE 52965191089 No Longer Active Nettie Newberry MAHENDRA Active AMLODIPINE BESYLATE 5 MG ORAL TABLET Take 1 tab po daily AMLODIPINE BESYLATE 62441174338 No Longer Active Nettie Newberry MAHENDRA Active MECLIZINE HCL 25 MG ORAL TABLET 1 tablet three times daily for 3 days, then 1/ 2 tab three times daily for 3 days. MECLIZINE HCL 56831112720 No Longer Active Nettieog Newberry APRN Active AMITRIPTYLINE HCL 25 MG ORAL TABLET 1 q hs prn AMITRIPTYLINE HCL 93767279924 No Longer Active Nettie Newberry MAHENDRA Active DILAUDID 2 MG ORAL TABLET Take 1/2 tab po every 4 hours as needed for pain HYDROMORPHONE HCL 24350164473 No Longer Active Nettieog Newberry APRN Active CLOPIDOGREL BISULFATE 75 MG ORAL TABLET 1 tab by mouth once daily CLOPIDOGREL BISULFATE 71990805929 Active Meenu Alejo LPN Active ATORVASTATIN CALCIUM 10 MG ORAL TABLET 1 at bedtime ATORVASTATIN CALCIUM 22132254674 Active Kortney Mccain Active LOVASTATIN 40 MG ORAL TABLET Take 1 tab po every hs LOVASTATIN 19514185290 No Longer Active Harinder Hernandez DO Active PREDNISONE 20 MG ORAL TABLET 2 tabs daily for 4 days, 1 tab daily for 4 days, 1/2 tab daily for 4 days PREDNISONE 32551932566 No Longer Active Harinder Hernandez DO Active LEVAQUIN 500 MG ORAL TABLET Take 1 tab po daily x 8 days LEVOFLOXACIN 91684401657 No Longer Active Harinder Hernandez DO Active VENTOLIN HFA 108 (90 Base) MCG/ACT INHALATION AEROSOL SOLUTION 2 -4 puffs four times a day PRN ALBUTEROL SULFATE 17338929257 No Longer Active Jeri Sosa LPN Active ACEBUTOLOL HCL 200 MG ORAL CAPSULE 1 cap in the morning and 2 caps in the evening ACEBUTOLOL HCL 44381264006 No Longer Active Harinder Hernandez DO Active CEFDINIR 300 MG ORAL CAPSULE take 1 cap po bid x 10 days CEFDINIR 21551598137 No Longer Active Harinder Hernandez DO Active LOVASTATIN 40 MG ORAL TABLET 1 pill by mouth nightly for cholesterol LOVASTATIN 83867844545 No Longer Active Nettie Newberry APRN Active NITROSTAT 0.4 MG SUBLINGUAL TABLET SUBLINGUAL 1 tab under tongueas needed for chest pain ( may take 3 total, 5 min apart, then call 911) NITROGLYCERIN 31010591848 No Longer Active Nettie Newberry APRN Active POTASSIUM CHLORIDE ER 10 MEQ ORAL CAPSULE EXTENDED RELEASE 1 capsule by mouth daily POTASSIUM CHLORIDE 65601249458 No Longer Active Nettie Newberry APRN Active TESSALON PERLES 100 MG ORAL CAPSULE 1 to 2 tablets by mouth 3 times daily as needed for cough BENZONATATE 76959524804 No Longer Active Nettie Newberry APRN Active PREDNISONE 20 MG ORAL TABLET 2 po qd x 5 days PREDNISONE 28670997435 No Longer Active Jae Morgan MD Active AZITHROMYCIN 250 MG ORAL TABLET 2 po qd x 1 day, then 1 po qd x 4 days 12/30 AZITHROMYCIN 22172673777 No Longer Active Jae Morgan MD Active PREDNISONE 20 MG ORAL TABLET 1 tab twice daily for 3 day, then one daily for three days PREDNISONE 82569125137 No Longer Active Jae Morgan MD Active SINGULAIR 10 MG ORAL TABLET 1 pill by mouth every evening for breathing. 2014 MONTELUKAST SODIUM 95842711116 Active Meenu Alejo LPN Active TYLENOL 325 MG ORAL TABLET 3 by mouth q4h as needed ACETAMINOPHEN 36284578308 Active Harinder Hernandez DO Active POTASSIUM CHLORIDE ER 10 MEQ ORAL TABLET EXTENDED RELEASE take 1 tab po daily POTASSIUM CHLORIDE 76125270257 No Longer Active Harinder Hernandez DO Active PREDNISONE 20 MG ORAL TABLET 1 TID x 2 days, then 1 BID x 3 days, then 1 Daily x 3 days, then stop PREDNISONE 78189241620 No Longer Active Jialec Montemayor APRN Active LEVAQUIN 500 MG ORAL TABLET 1 tablet by mouth daily LEVOFLOXACIN 69811979447 No Longer Active Jillina Fradankl MUSIC EXECUTIVE Active NEURONTIN 300 MG ORAL CAPSULE 1 cap by mouth three times daily for restless leg GABAPENTIN 53508674734 No Longer Active Harinder Hernandez DO Active BENZONATATE 100 MG ORAL CAPSULE 1 cap po TID PRN BENZONATATE 38782680825 No Longer Active Harinder Hernandez DO Active MONTELUKAST SODIUM 10 MG ORAL TABLET 1 tab po in the evening 2014 MONTELUKAST SODIUM 69446131672 No Longer Active Harinder Hernandez DO Active MUPIROCIN 2 % EXTERNAL OINTMENT apply to affected area BID x 14 days MUPIROCIN 34420084319 No Longer Active Harinder Hernandez DO Active TYLENOL EXTRA STRENGTH 500 MG ORAL TABLET as needed ACETAMINOPHEN 07286701096 No Longer Active Harinder Hernandez DO Active PREDNISONE 10 MG ORAL TABLET 1 tab po daily PREDNISONE 12613795272 No Longer Active Harinder Hernandez DO Active PREDNISONE 20 MG ORAL TABLET 2 tabs daily for 4 days, 1 tab daily for 4 days, 1/2 tab daily for 4 days PREDNISONE 97109233888 No Longer Active Harinder Hernandez DO Active AZITHROMYCIN 250 MG ORAL TABLET 2 po qd x 1 day, then 1 po qd x 4 days 04/06 AZITHROMYCIN 26288216019 No Longer Active Harinder Hernandez DO Active PREDNISONE 20 MG ORAL TABLET 3 tabs today, then 1 tab twice daily for 3 day, then one daily for three days PREDNISONE 78659696553 No Longer Active Harinder Hernandez DO Active NIFEDIAC CC 30 MG ORAL TABLET EXTENDED RELEASE 24 HOUR 1 tablet daily for raynaud's syndrome NIFEDIPINE 78798517472 No Longer Active Tawnya Pardo MA Active AMBIEN 10 MG ORAL TABLET 1/2 tab by mouth at bedtime as needed for sleep 2013 ZOLPIDEM TARTRATE 19677843722 Active Meenu Alejo LPN Active CLONAZEPAM 1 MG ORAL TABLET 1 tablet at bedtime for insomnia and restless legs CLONAZEPAM 21537212452 Active Meenu Alejo LPN Active CLONAZEPAM 0.5 MG ORAL TABLET 1 tab po daily CLONAZEPAM 19401205671 No Longer Active Harinder Hernandez DO Active PREDNISONE 10 MG ORAL TABLET 1 tablet daily for COPD PREDNISONE 87112367048 Active Kortney Mccain Active PROAIR HFA 108 (90 Base) MCG/ACT INHALATION AEROSOL SOLUTION 2 puffs four times a day as needed ALBUTEROL SULFATE 35862294046 Active Harinder Hernandez DO Active FLOVENT HFA 110 MCG/ACT INHALATION AEROSOL 2 puffs inhaled b.i.d. FLUTICASONE PROPIONATE HFA 25052846527 Active Kortney Mccain Active ACIPHEX 20 MG ORAL TABLET DELAYED RELEASE 1 tab po daily RABEPRAZOLE SODIUM 80546769738 Active Meenu Alejo LPN Active CLONAZEPAM 0.5 MG ORAL TABLET 1 tab po daily CLONAZEPAM 0.5 MG ORAL TABLET 384583 CLONAZEPAM Inactive PREDNISONE 20 MG ORAL TABLET 3 tabs today, then 1 tab twice daily for 3 day, then one daily for three days PREDNISONE 20 MG ORAL TABLET 656681 PREDNISONE Inactive PREDNISONE 20 MG ORAL TABLET 2 tabs daily for 4 days, 1 tab daily for 4 days, 1/2 tab daily for 4 days PREDNISONE 20 MG ORAL TABLET 246783 PREDNISONE Inactive PREDNISONE 10 MG ORAL TABLET 1 tab po daily PREDNISONE 10 MG ORAL TABLET 430147 PREDNISONE Inactive TYLENOL EXTRA STRENGTH 500 MG ORAL TABLET as needed TYLENOL EXTRA STRENGTH 500 MG ORAL TABLET 086699 ACETAMINOPHEN Inactive MUPIROCIN 2 % EXTERNAL OINTMENT apply to affected area BID x 14 days MUPIROCIN 2 % EXTERNAL OINTMENT 328418 MUPIROCIN Inactive MONTELUKAST SODIUM 10 MG ORAL TABLET 1 tab po in the evening 2014 MONTELUKAST SODIUM 10 MG ORAL TABLET 936810 MONTELUKAST SODIUM Inactive BENZONATATE 100 MG ORAL CAPSULE 1 cap po TID PRN BENZONATATE 100 MG ORAL CAPSULE 992907 BENZONATATE Inactive NEURONTIN 300 MG ORAL CAPSULE 1 cap by mouth three times daily for restless leg NEURONTIN 300 MG ORAL CAPSULE 305032 GABAPENTIN Inactive LEVAQUIN 500 MG ORAL TABLET 1 tablet by mouth daily LEVAQUIN 500 MG ORAL TABLET 492252 LEVOFLOXACIN Inactive PREDNISONE 20 MG ORAL TABLET 1 TID x 2 days, then 1 BID x 3 days, then 1 Daily x 3 days, then stop PREDNISONE 20 MG ORAL TABLET 187812 PREDNISONE Inactive POTASSIUM CHLORIDE ER 10 MEQ ORAL TABLET EXTENDED RELEASE take 1 tab po daily POTASSIUM CHLORIDE ER 10 MEQ ORAL TABLET EXTENDED RELEASE POTASSIUM CHLORIDE Inactive PREDNISONE 20 MG ORAL TABLET 1 tab twice daily for 3 day, then one daily for three days PREDNISONE 20 MG ORAL TABLET 036290 PREDNISONE Inactive TESSALON PERLES 100 MG ORAL CAPSULE 1 to 2 tablets by mouth 3 times daily as needed for cough TESSALON PERLES 100 MG ORAL CAPSULE 100406 BENZONATATE Inactive POTASSIUM CHLORIDE ER 10 MEQ ORAL CAPSULE EXTENDED RELEASE 1 capsule by mouth daily POTASSIUM CHLORIDE ER 10 MEQ ORAL CAPSULE EXTENDED RELEASE POTASSIUM CHLORIDE Inactive NITROSTAT 0.4 MG SUBLINGUAL TABLET SUBLINGUAL 1 tab under tongueas needed for chest pain ( may take 3 total, 5 min apart, then call 911) NITROSTAT 0.4 MG SUBLINGUAL TABLET SUBLINGUAL 854483 NITROGLYCERIN Inactive LOVASTATIN 40 MG ORAL TABLET 1 pill by mouth nightly for cholesterol LOVASTATIN 40 MG ORAL TABLET 891173 LOVASTATIN Inactive CEFDINIR 300 MG ORAL CAPSULE take 1 cap po bid x 10 days CEFDINIR 300 MG ORAL CAPSULE 626251 CEFDINIR Inactive ACEBUTOLOL HCL 200 MG ORAL CAPSULE 1 cap in the morning and 2 caps in the evening ACEBUTOLOL HCL 200 MG ORAL CAPSULE 944034 ACEBUTOLOL HCL Inactive VENTOLIN HFA 108 (90 Base) MCG/ACT INHALATION AEROSOL SOLUTION 2 -4 puffs four times a day PRN VENTOLIN HFA 108 (90 Base) MCG/ ACT INHALATION AEROSOL SOLUTION ALBUTEROL SULFATE Inactive LEVAQUIN 500 MG ORAL TABLET Take 1 tab po daily x 8 days LEVAQUIN 500 MG ORAL TABLET 614332 LEVOFLOXACIN Inactive PREDNISONE 20 MG ORAL TABLET 2 tabs daily for 4 days, 1 tab daily for 4 days, 1/2 tab daily for 4 days PREDNISONE 20 MG ORAL TABLET 567426 PREDNISONE Inactive LOVASTATIN 40 MG ORAL TABLET Take 1 tab po every hs LOVASTATIN 40 MG ORAL TABLET 043437 LOVASTATIN Inactive DILAUDID 2 MG ORAL TABLET Take 1/2 tab po every 4 hours as needed for pain DILAUDID 2 MG ORAL TABLET 144676 HYDROMORPHONE HCL Inactive AMITRIPTYLINE HCL 25 MG ORAL TABLET 1 q hs prn AMITRIPTYLINE HCL 25 MG ORAL TABLET 932616 AMITRIPTYLINE HCL Inactive MECLIZINE HCL 25 MG ORAL TABLET 1 tablet three times daily for 3 days, then 1/ 2 tab three times daily for 3 days. MECLIZINE HCL 25 MG ORAL TABLET 239175 MECLIZINE HCL Inactive AMLODIPINE BESYLATE 5 MG ORAL TABLET Take 1 tab po daily AMLODIPINE BESYLATE 5 MG ORAL TABLET 899378 AMLODIPINE BESYLATE Inactive TOPIRAMATE 25 MG ORAL TABLET 1 tab po BID TOPIRAMATE 25 MG ORAL TABLET 554698 TOPIRAMATE Inactive PREDNISONE 20 MG ORAL TABLET 1 tablet twice daily for 2 days, then 1 tablet once daily for 2 days PREDNISONE 20 MG ORAL TABLET 693274 PREDNISONE Inactive PREDNISONE 20 MG ORAL TABLET 1 tab twice daily for 3 day, then one daily for three days PREDNISONE 20 MG ORAL TABLET 751815 PREDNISONE Inactive NIFEDIPINE ER 30 MG ORAL TABLET EXTENDED RELEASE 24 HOUR 1 daily NIFEDIPINE ER 30 MG ORAL TABLET EXTENDED RELEASE 24 HOUR NIFEDIPINE Inactive AMLODIPINE BESYLATE 5 MG ORAL TABLET 1 tablet by mouth daily 2016 AMLODIPINE BESYLATE 5 MG ORAL TABLET 853085 AMLODIPINE BESYLATE Inactive LASIX 20 MG ORAL TABLET 1 tablet by mouth every morning LASIX 20 MG ORAL TABLET 496837 FUROSEMIDE Inactive POTASSIUM CHLORIDE ER 10 MEQ ORAL CAPSULE EXTENDED RELEASE 1 capsule BID 2016 POTASSIUM CHLORIDE ER 10 MEQ ORAL CAPSULE EXTENDED RELEASE POTASSIUM CHLORIDE Inactive POTASSIUM CHLORIDE 20 MEQ ORAL PACKET 1 tab po q day POTASSIUM CHLORIDE 20 MEQ ORAL PACKET 3877374 POTASSIUM CHLORIDE Inactive PREDNISONE 20 MG ORAL TABLET 2 tablets by mouth today, then 1 tablet by mouth days 2-3 PREDNISONE 20 MG ORAL TABLET 315033 PREDNISONE Inactive SPIRONOLACTONE 25 MG ORAL TABLET 1 tablet by mouth daily SPIRONOLACTONE 25 MG ORAL TABLET 818572 SPIRONOLACTONE Inactive AZITHROMYCIN 250 MG ORAL TABLET 2 po qd x 1 day, then 1 po qd x 4 days 04/06 AZITHROMYCIN 250 MG ORAL TABLET 850946 AZITHROMYCIN Inactive AZITHROMYCIN 250 MG ORAL TABLET 2 po qd x 1 day, then 1 po qd x 4 days 12/30 AZITHROMYCIN 250 MG ORAL TABLET 633278 AZITHROMYCIN Inactive PREDNISONE 20 MG ORAL TABLET 2 po qd x 5 days PREDNISONE 20 MG ORAL TABLET 135049 PREDNISONE Inactive Vital Signs Date Name Value [...] Panel - Chemistry sodium, serum 140 mmol/L 942-694 6298/07/13 potassium, serum 3.2 mmol/L 3.5-5.2 chloride, serum 103 mmol/L 98-107 carbon dioxide, venous blood 26.9 mmol/L 21.0-32.0 blood glucose 93 mg/dL 65-110 calcium, serum 9.2 mg/dL 8.5-10.1 urea nitrogen, blood 13 mg/dL 7-18 creatinine, serum 0.84 mg/dL 0.60-1.30 sodium, serum 140 mmol/L 348-415 1201/08/21 potassium, serum 3.8 mmol/L 3.5-5.2 chloride, serum [...] ... - Chemistry sodium, serum 141 mmol/L 631-546 6354/08/07 carbon dioxide, venous blood 34.0 mmol/L 21.0-32.0 [...] 1.40 mg/dL 0.00-1.00 cholesterol, serum 192 mg/dL 929-390 7259/10/19 triglyceride, serum, fasting 71 mg/dL 30-200 HDL cholesterol, serum 72 mg/dL 32-60 LDL cholesterol, serum 106 mg/dL 0-130 Lab Report: Rapid Strep - Lab Microbial identification kit, rapid strep method Negative Negative Lab Report: THEOPHYLLINE - Toxicology theophylline level, serum 3.1 ug/mL 10.0-20.0 Encounters Code Encounter Date Provider Facility CPT-58724 Level 3 Est. Patient 12:36:15 [employer] Harinder Cr [facility] CPT-64690 Level 3 Est. Patient 15:14:45 [employer] Harinder Cr [facility] CPT-93818 Level 4 Est. Patient 14:45:25 CDT Harinder Cr [facility] CPT-10619 Level 4 Est. Patient 09:15:13 CDT Harinder Cr [facility] CPT-46069 Level 3 Est. Patient 11:51:58 CDT Harinder Cr [facility] CPT-59749 Level 3 Est. Patient 11:30:05 CDT Harinder Cr [facility] CPT-90497 Level 4 Est. Patient 10:19:23 CDT Harinder Cr [facility] CPT-96188 Level 3 Est. Patient 09:58:58 CDT Harinder Cr [facility] CPT-00669 Level 3 Est. Patient 12:37:21 CDT Harinder Cr [facility] CPT-13775 Level 3 Est. Patient 18:37:17 CDT Harinder Cr [facility] CPT-03819 Level 4 Est. Patient 11:15:54 CDT Nettie Rohith [facility] CPT-41426 Level 3 Est. Patient 16:42:24 CDT Harinder Cr [facility] CPT-75839 Level 3 Est. Patient 15:03:36 CDT Harinder Cr [facility] CPT-84475 Level 3 Est. Patient 15:03:20 CDT Harinder Shaye [facility] CPT-14882 Level 3 Est. Patient 12:14:34 CDT Harinder Shaye [facility] CPT-43407 Level 3 Est. Patient 13:47:15 CDT Harinder Cr [facility] CPT-20260 Level 3 Est. Patient 14:08:24 CDT Harinder Hernandez [facility] CPT-47044 Level 3 Est. Patient 10:07:15 CDT Harinder Hernandez [facility] CPT-94538 Level 3 Est. Patient 10:06:59 CDT Harinder Hernandez [facility] CPT-02611 Level 3 Est. Patient 15:53:29 CDT Jae Morgan MD [facility] CPT-86160 Level 3 Est. Patient 17:19:04 CDT Harinder Hernandez [facility] CPT-47242 Level 3 Est. Patient 11:13:01 CDT Harinder Hernandez [facility] CPT-50837 Level 3 Est. Patient 09:03:58 CDT Harinder Hernandez [facility] CPT-83891 Level 3 Est. Patient 14:46:45 [employer] Harinder Hernandez [facility] CPT-65576 Level 3 Est. Patient 09:35:49 [employer] Harinder Hernandez [facility] CPT-43381 Level 3 Est. Patient 09:29:37 [employer] Harinder Hernandez [facility] CPT-38593 Level 3 Est. Patient 15:51:07 CDT Harinder Hernandez [facility] CPT-79000 Level 3 Est. Patient 18:13:13 CDT Harinder Hernandez [facility] CPT-79505 Level 3 Est. Patient 10:44:19 CDT Harinder Shaye [facility] CPT-91400 Level 4 Est. Patient 10:07:19 [employer] Harinder Cr [facility] CPT-77653 Level 3 Est. Patient 15:59:32 [employer] Harinder Cr [facility] Procedures Code Procedure Name Date Entry Date Standard Description CPT-75944 Abd compl w upright - XRAY USE ONLY 14:48:09 CDT 02/18 CPT-71914 Port a cath flush 13:46:05 CDT CPT-29568 Hip, complete, 2-3 views - XRAY USE ONLY 10:28:40 CDT CPT-44958 BMP - LAB USE ONLY 16:45:09 [employer] CPT-43308 Port a cath flush 12:00:13 [employer] CPT-TCMM Transitional Care Mgmt-Moderate 11:20:16 [employer] CPT-76217 First Vx - Ix admin for Medicare patients 17:35:15 CDT CPT-82970 Fluzone Preservative Free Intramuscular Suspension 17:35 :15 CDT CPT-94627 Microalbumin - LAB USE ONLY 11:52:05 CDT CPT-TCMM Transitional Care Mgmt-Moderate 11:33:57 CDT CPT-17994 No Charge Offi Visit 14:11:29 CDT CPT-39392 Magnesium - LAB USE ONLY 10:45:44 CDT CPT-69506 Lipid - LAB USE ONLY 10:45:44 CDT CPT-71145 CBC - LAB USE ONLY 10:45:44 CDT CPT-34518 Venipuncture Draw Fee 10:45:43 CDT CPT-94122 Venipuncture Draw Fee 18:21:27 CDT CPT-JTINJ Asp/Joint Injection 18:38:04 CDT CPT-91592 Immunization Each Additional Inj 17:38:04 CDT CPT-20120 Immunization Single Admin 17:38:04 CDT CPT-42030 Prevnar 13 17:38:04 CDT CPT-96452 Fluzone Quadrivalent preservative free (>=3yrs.) 17:38: 04 CDT CPT-84108 No Charge Offi Visit 11:14:03 CDT CPT-89230 Chest 2V Frontal and Lat 14:00:18 CDT CPT-OV Office Visit 16:10:28 CDT CPT-JTINJ Asp/Joint Injection 09:03:57 CDT CPT-Cryo Cryotherapy 09:35:49 [employer] CPT-JTINJ Asp/Joint Injection 09:34:45 [employer] CPT-J2930 Solu Medrol 125 mg (Methyl Prednisolone Sodium Succinate) 20:37:27 CDT CPT-84626 Abx/Therapy Injection 20:37:27 CDT CPT-08131 Port a cath flush 08:15:51 CDT CPT-82560 Port a cath flush 09:54:16 CDT CPT-95477 Port a cath flush 09:38:02 CDT CPT-57936 Port a cath flush 11:00:27 [employer]
--- OUTSIDE RECORDS SUMMARY | 2017-12-29 05:56 | XMS REPORT | Clinical Summary ---
Author Author Admin, QIE Organization [facility] Address Unknown Phone Unavailable Allergies, Adverse [...] ORAL TABS 1 tab po BID TOPIRAMATE 80405618780 Active Kortney Mccain Active FLUTICASONE PROPIONATE 50 MCG/ACT SUSP 2 sprays per nostril daily PRN Allergies FLUTICASONE PROPIONATE 85626327052 Active Kortney Mccain Active ALBUTEROL SULFATE 0.083 % NEBU SOLN 1 vial neb q 4hrs PRN Wheezing Dx: J44.1 ALBUTEROL SULFATE 78799386308 Active Kortney Mccain Active AMLODIPINE BESYLATE 5 MG TABS 1 tablet by mouth daily AMLODIPINE BESYLATE 15092856828 Active Harinder Hernandez DO Active NIFEDIPINE ER 30 MG ORAL [id number] 1 daily NIFEDIPINE 22171859163 No Longer Active Harinder Hernandez DO Active POTASSIUM CHLORIDE 20 MEQ ORAL PACK Take 1 tablet by mouth daily POTASSIUM CHLORIDE 69386504431 Active Ciera Pimentel Active FLOVENT HFA 110 MCG/ACT AERO 2 puffs inhaled b.i.d. FLUTICASONE PROPIONATE HFA 41496641964 Active Harinder Hernandez DO Active POTASSIUM CHLORIDE CR 10 MEQ CPCR 1 capsule by mouth daily POTASSIUM CHLORIDE 31964582815 Active Harinder Hernandez DO Active EPIPEN 2-BRUNA 0.3 MG/0.3ML INJ SOAJ 1 INJ NEEDED EPINEPHRINE 61184526678 Active Harinder Hernandez DO Active PREDNISONE 20 MG TAB 1 tab twice daily for 3 day, then one daily for three days PREDNISONE 74805405706 No Longer Active Harinder Hernandez DO Active PREDNISONE 20 MG TAB 1 tablet twice daily for 2 days, then 1 tablet once daily for 2 days PREDNISONE 73627004830 No Longer Active Harinder Hernandez DO Active ASMANEX 120 METERED DOSES 220 MCG/INH INH AEPB 2 puffs orally twice daily MOMETASONE FUROATE 13819936743 Active Jeri Sosa RPT,RMA Active TOPIRAMATE 25 MG TABS 1 tab po BID TOPIRAMATE 40195946025 No Longer Active Nettie Newberry [employer] Active AMLODIPINE BESYLATE 5 MG ORAL TABS Take 1 tab po daily AMLODIPINE BESYLATE 53055047616 No Longer Active Nettie Rohith [employer]ING [employer]ER Active MECLIZINE HCL 25 MG TAB 1 tablet three times daily for 3 days, then 1/2 tab three times daily for 3 days. MECLIZINE HCL 89762520075 No Longer Active Nettie Newberry MAHENDRA Active AMITRIPTYLINE HCL 25 MG ORAL TABS 1 q hs prn AMITRIPTYLINE HCL 16853646871 No Longer Active Nettieog Newberry APRN Active DILAUDID 2 MG ORAL TABS Take 1/2 tab po every 4 hours as needed for pain 2014 HYDROMORPHONE HCL 77952969805 No Longer Active Nettie Newberry APRN Active CLOPIDOGREL BISULFATE 75 MG ORAL TABS 1 tab by mouth once daily CLOPIDOGREL BISULFATE 26151568904 Active Harinder Hernandez DO Active ATORVASTATIN CALCIUM 10 MG ORAL TABS 1 at bedtime ATORVASTATIN CALCIUM 35018800785 Active Tawnya Pardo MA Active LOVASTATIN 40 MG ORAL TABS Take 1 tab po every hs LOVASTATIN 50665220192 No Longer Active Harinder Hernandez DO Active PREDNISONE 20 MG TAB 2 tabs daily for 4 days, 1 tab daily for 4 days, 1/2 tab daily for 4 days PREDNISONE 41430487351 No Longer Active Harinder Hernandez DO Active LEVAQUIN 500 MG ORAL TABS Take 1 tab po daily x 8 days LEVOFLOXACIN 80640714752 No Longer Active Harinder Hernandez DO Active VENTOLIN HFA 108 (90 BASE) MCG/ACT AERS 2 -4 puffs four times a day PRN 2013 ALBUTEROL SULFATE 01780517731 No Longer Active Jeri Sosa RPT,RMA Active ACEBUTOLOL HCL 200 MG CAPS 1 cap in the morning and 2 caps in the evening ACEBUTOLOL HCL 98519505831 No Longer Active Harinder Hernandez DO Active CEFDINIR 300 MG ORAL CAPS take 1 cap po bid x 10 days CEFDINIR 08812056978 No Longer Active Harinder Hernandez DO Active LOVASTATIN 40 MG TABS 1 pill by mouth nightly for cholesterol LOVASTATIN 98230074020 No Longer Active Nettie Newberry APRN Active NITROSTAT 0.4 MG SUBL 1 tab under tongueas needed for chest pain ( may take 3 total, 5 min apart, then call 911) NITROGLYCERIN 01899694468 No Longer Active Nettie Newberry APRN Active POTASSIUM CHLORIDE CR 10 MEQ CPCR 1 capsule by mouth daily 02/14 POTASSIUM CHLORIDE 31869541259 No Longer Active Nettie Newberry APRN Active TESSALON PERLES 100 MG CAP 1 to 2 tablets by mouth 3 times daily as needed for cough BENZONATATE 15379305720 No Longer Active Nettie Newberry APRN Active THEOPHYLLINE ER 200 MG ORAL [id number] Take 1 tab every 12 hours THEOPHYLLINE 53927969078 Active Tawnya Pardo MA Active PREDNISONE 20 MG TAB 2 po qd x 5 days PREDNISONE 26742010769 No Longer Active Jae Morgan MD Active AZITHROMYCIN 250 MG TABS 2 po qd x 1 day, then 1 po qd x 4 days AZITHROMYCIN 25691646918 No Longer Active Jae Morgan MD Active PREDNISONE 20 MG TAB 1 tab twice daily for 3 day, then one daily for three days PREDNISONE 53863114976 No Longer Active Jae Morgan MD Active SINGULAIR 10 MG TABS 1 pill by mouth every evening for breathing. 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 NEURONTIN 300 MG CAP 1 cap by mouth three times daily for restless leg 06/22 GABAPENTIN 35414524178 No Longer Active Harinder Hernandez DO Active BENZONATATE 100 MG CAPS 1 cap po TID PRN BENZONATATE 85780470439 No Longer Active Harinder Hernandez DO Active MONTELUKAST SODIUM 10 MG TABS 1 tab po in the evening MONTELUKAST SODIUM 25412041913 No Longer Active Harinder Hernandez DO Active MUPIROCIN 2 % OINT apply to affected area BID x 14 days MUPIROCIN 45290006040 No Longer Active Harinder Hernandez DO Active TYLENOL EXTRA STRENGTH 500 MG TABS as needed ACETAMINOPHEN 35682516126 No Longer Active Harinder Hernandez DO Active PREDNISONE 10 MG TABS 1 tab po daily PREDNISONE 22949354050 No Longer Active Harinder Hernandez DO Active PREDNISONE 20 MG TAB 2 tabs daily for 4 days, 1 tab daily for 4 days, 1/2 tab daily for 4 days PREDNISONE 42155467725 No Longer Active Harinder Hernandez DO Active AZITHROMYCIN 250 MG TABS 2 po qd x 1 day, then 1 po qd x 4 days AZITHROMYCIN 71191221763 No Longer Active Harinder Hernandez DO Active PREDNISONE 20 MG TAB 3 tabs today, then 1 tab twice daily for 3 day, then one daily for three days PREDNISONE 55418762310 No Longer Active Harinder Hernandez DO Active NIFEDIAC CC 30 MG [id number] 1 tablet daily for raynaud's syndrome NIFEDIPINE 46295438281 No Longer Active Tawnya Pardo MA Active AMBIEN 10 MG TAB 1/2 tab by mouth at bedtime as needed for sleep ZOLPIDEM TARTRATE 53841206730 Active Kortney Mccain Active CLONAZEPAM 1 MG TABS 1 tablet at bedtime for insomnia and restless legs 09/14 CLONAZEPAM 58685497537 Active Harinder Hernandez DO Active CLONAZEPAM 0.5 MG TABS 1 tab po daily CLONAZEPAM 91352508743 No Longer Active Harinder Hernandez DO Active PREDNISONE 10 MG TAB 1 tablet daily for COPD PREDNISONE 29354766032 Active Ciera Pimentel Active PROAIR HFA 108 (90 BASE) MCG/ACT AERS 2 puffs four times a day as needed 2012 ALBUTEROL SULFATE 57737367752 Active Harinder Hernandez DO Active FLOVENT HFA 110 MCG/ACT AERO 2 puffs inhaled b.i.d. FLUTICASONE PROPIONATE HFA 34300163299 Active Kortney Mccain Active ACIPHEX 20 MG TBEC 1 tab po daily RABEPRAZOLE SODIUM 70904809945 Active Kaylah Newberry Active CLONAZEPAM 0.5 MG TABS 1 tab po daily CLONAZEPAM 0.5 MG TABS 954487 CLONAZEPAM Inactive PREDNISONE 20 MG TAB 3 tabs today, then 1 tab twice daily for 3 day, then one daily for three days PREDNISONE 20 MG TAB 226343 PREDNISONE Inactive PREDNISONE 20 MG TAB 2 tabs daily for 4 days, 1 tab daily for 4 days, 1/2 tab daily for 4 days PREDNISONE 20 MG TAB 916993 PREDNISONE Inactive PREDNISONE 10 MG TABS 1 tab po daily PREDNISONE 10 MG TABS 074071 PREDNISONE Inactive TYLENOL EXTRA STRENGTH 500 MG TABS as needed TYLENOL EXTRA STRENGTH 500 MG TABS ACETAMINOPHEN Inactive MUPIROCIN 2 % OINT apply to affected area BID x 14 days MUPIROCIN 2 % OINT 066558 MUPIROCIN Inactive MONTELUKAST SODIUM 10 MG TABS 1 tab po in the evening MONTELUKAST SODIUM 10 MG TABS 20010818 MONTELUKAST SODIUM Inactive BENZONATATE 100 MG CAPS 1 cap po TID PRN BENZONATATE 100 MG CAPS 19730321 BENZONATATE Inactive NEURONTIN 300 MG CAP 1 cap by mouth three times daily for restless leg 06/22 NEURONTIN 300 MG CAP 251819 GABAPENTIN Inactive LEVAQUIN 500 MG TAB 1 tablet by mouth daily LEVAQUIN 500 MG TAB 488938 LEVOFLOXACIN Inactive PREDNISONE 20 MG TAB 1 TID x 2 days, then 1 BID x 3 days, then 1 Daily x 3 days, then stop PREDNISONE 20 MG TAB 540970 PREDNISONE Inactive POTASSIUM CHLORIDE ER 10 MEQ CR-TABS take 1 tab po daily POTASSIUM CHLORIDE ER 10 MEQ CR-TABS POTASSIUM CHLORIDE Inactive PREDNISONE 20 MG TAB 1 tab twice daily for 3 day, then one daily for three days PREDNISONE 20 MG TAB 218466 PREDNISONE Inactive TESSALON PERLES 100 MG CAP 1 to 2 tablets by mouth 3 times daily as needed for cough TESSALON PERLES 100 MG CAP 886055 BENZONATATE Inactive POTASSIUM CHLORIDE CR 10 MEQ CPCR 1 capsule by mouth daily 02/14 POTASSIUM CHLORIDE CR 10 MEQ CPCR POTASSIUM CHLORIDE Inactive NITROSTAT 0.4 MG SUBL 1 tab under tongueas needed for chest pain ( may take 3 total, 5 min apart, then call 911) NITROSTAT 0.4 MG SUBL 428350 NITROGLYCERIN Inactive LOVASTATIN 40 MG TABS 1 pill by mouth nightly for cholesterol LOVASTATIN 40 MG TABS 023221 LOVASTATIN Inactive CEFDINIR 300 MG ORAL CAPS take 1 cap po bid x 10 days CEFDINIR 300 MG ORAL CAPS 313986 CEFDINIR Inactive ACEBUTOLOL HCL 200 MG CAPS 1 cap in the morning and 2 caps in the evening ACEBUTOLOL HCL 200 MG CAPS 110533 ACEBUTOLOL HCL Inactive VENTOLIN HFA 108 (90 BASE) MCG/ACT AERS 2 -4 puffs four times a day PRN 2013 VENTOLIN HFA 108 (90 BASE) MCG/ACT AERS ALBUTEROL SULFATE Inactive LEVAQUIN 500 MG ORAL TABS Take 1 tab po daily x 8 days LEVAQUIN 500 MG ORAL TABS 251887 LEVOFLOXACIN Inactive PREDNISONE 20 MG TAB 2 tabs daily for 4 days, 1 tab daily for 4 days, 1/2 tab daily for 4 days PREDNISONE 20 MG TAB 487000 PREDNISONE Inactive LOVASTATIN 40 MG ORAL TABS Take 1 tab po every hs LOVASTATIN 40 MG ORAL TABS 604072 LOVASTATIN Inactive DILAUDID 2 MG ORAL TABS Take 1/2 tab po every 4 hours as needed for pain 2014 DILAUDID 2 MG ORAL TABS 120572 HYDROMORPHONE HCL Inactive AMITRIPTYLINE HCL 25 MG ORAL TABS 1 q hs prn AMITRIPTYLINE HCL 25 MG ORAL TABS 769697 AMITRIPTYLINE HCL Inactive MECLIZINE HCL 25 MG TAB 1 tablet three times daily for 3 days, then 1/2 tab three times daily for 3 days. MECLIZINE HCL 25 MG TAB 665205 MECLIZINE HCL Inactive AMLODIPINE BESYLATE 5 MG ORAL TABS Take 1 tab po daily AMLODIPINE BESYLATE 5 MG ORAL TABS 965367 AMLODIPINE BESYLATE Inactive TOPIRAMATE 25 MG TABS 1 tab po BID TOPIRAMATE 25 MG TABS 957462 TOPIRAMATE Inactive PREDNISONE 20 MG TAB 1 tablet twice daily for 2 days, then 1 tablet once daily for 2 days PREDNISONE 20 MG TAB 990436 PREDNISONE Inactive PREDNISONE 20 MG TAB 1 tab twice daily for 3 day, then one daily for three days PREDNISONE 20 MG TAB 707176 PREDNISONE Inactive NIFEDIPINE ER 30 MG ORAL [id number] 1 daily NIFEDIPINE ER 30 MG ORAL [id number] NIFEDIPINE Inactive AZITHROMYCIN 250 MG TABS 2 po qd x 1 day, then 1 po qd x 4 days AZITHROMYCIN 250 MG TABS 3682696 AZITHROMYCIN Inactive AZITHROMYCIN 250 MG TABS 2 po qd x 1 day, then 1 po qd x 4 days AZITHROMYCIN 250 MG TABS 2933450 AZITHROMYCIN Inactive PREDNISONE 20 MG TAB 2 po qd x 5 days PREDNISONE 20 MG TAB 863105 PREDNISONE Inactive Vital Signs Date Name Value [...] Panel - Chemistry sodium, serum 137 mmol/L 523-678 2751/01/03 potassium, serum 3.4 mmol/L 3.5-5.2 chloride, serum [...] Magnesium - Chemistry cholesterol, serum 180 mg/dL 488-652 5332/08/08 triglyceride, serum, fasting 92 mg/dL 30-200 HDL cholesterol, serum 66 mg/dL 32-96 LDL cholesterol, serum 96 mg/dL 0-130 sodium, serum 142 mmol/L 409-884 2396/08/08 carbon dioxide, venous blood 27.4 mmol/L 21.0-32.0 [...] 10.0-20.0 Encounters Code Encounter Date Provider Facility CPT-38226 Level 3 Est. Patient 09:58:58 CDT Harinder Shaye [facility] CPT-70264 Level 3 Est. Patient 12:37:21 CDT Harinder Cr [facility] CPT-79971 Level 3 Est. Patient 18:37:17 CDT Harinder Cr [facility] CPT-12709 Level 4 Est. Patient 11:15:54 CDT Nettie Rohith [facility] CPT-08533 Level 3 Est. Patient 16:42:24 CDT Harinder Cr [facility] CPT-35219 Level 3 Est. Patient 15:03:36 CDT Harinder Shaye [facility] CPT-83119 Level 3 Est. Patient 15:03:20 CDT Harinder Shaye [facility] CPT-93236 Level 3 Est. Patient 12:14:34 CDT Harinder Cr [facility] CPT-60951 Level 3 Est. Patient 13:47:15 CDT Harinder Cr [facility] CPT-07556 Level 3 Est. Patient 14:08:24 CDT Harinder Cr [facility] CPT-39275 Level 3 Est. Patient 10:07:15 CDT Harinder Hernandez [facility] CPT-21431 Level 3 Est. Patient 10:06:59 CDT Harinder Hernandez [facility] CPT-59370 Level 3 Est. Patient 15:53:29 CDT Jae Morgan [facility] CPT-79870 Level 3 Est. Patient 17:19:04 CDT Harinder Hernandez [facility] CPT-96997 Level 3 Est. Patient 11:13:01 CDT Harinder Hernandez [facility] CPT-38306 Level 3 Est. Patient 09:03:58 CDT Harinder Hernandez [facility] CPT-67108 Level 3 Est. Patient 14:46:45 COMMUNITY SERVICE COORDINATOR Harinder Hernandez [facility] CPT-68590 Level 3 Est. Patient 09:35:49 COMMUNITY SERVICE COORDINATOR Harinder Hernandez [facility] CPT-87861 Level 3 Est. Patient 09:29:37 COMMUNITY SERVICE COORDINATOR Harinder Hernandez [facility] CPT-88780 Level 3 Est. Patient 15:51:07 CDT Harinder Hernandez [facility] CPT-00451 Level 3 Est. Patient 18:13:13 CDT Harinder Hernandez [facility] CPT-90987 Level 3 Est. Patient 10:44:19 CDT Harinder Hernandez [facility] CPT-21582 Level 4 Est. Patient 10:07:19 COMMUNITY SERVICE COORDINATOR Harinder Cr [facility] CPT-68413 Level 3 Est. Patient 15:59:32 COMMUNITY SERVICE COORDINATOR Harinder Hernandez [facility] Procedures Code Procedure Name Date Entry Date Standard Description CPT-88985 BMP - LAB USE ONLY 16:45:09 COMMUNITY SERVICE COORDINATOR CPT-37765 Port a cath flush 12:00:13 COMMUNITY SERVICE COORDINATOR CPT-TCMM Transitional Care Mgmt-Moderate 11:20:16 COMMUNITY SERVICE COORDINATOR CPT-93306 First Vx - Ix admin for Medicare patients 17:35:15 CDT CPT-05936 Fluzone Preservative Free Intramuscular Suspension 17:35 :15 CDT CPT-41782 Microalbumin - LAB USE ONLY 11:52:05 CDT CPT-TCMM Transitional Care Mgmt-Moderate 11:33:57 CDT CPT-88453 No Charge Offi Visit 14:11:29 CDT CPT-61663 Magnesium - LAB USE ONLY 10:45:44 CDT CPT-45176 Lipid - LAB USE ONLY 10:45:44 CDT CPT-64948 CBC - LAB USE ONLY 10:45:44 CDT CPT-44540 Venipuncture Draw Fee 10:45:43 CDT CPT-30225 Venipuncture Draw Fee 18:21:27 CDT CPT-JTINJ Asp/Joint Injection 18:38:04 CDT CPT-92125 Immunization Each Additional Inj 17:38:04 CDT CPT-46348 Immunization Single Admin 17:38:04 CDT CPT-24471 Prevnar 13 17:38:04 CDT CPT-00508 Fluzone Quadrivalent preservative free (>=3yrs.) 17:38: 04 CDT CPT-30001 No Charge Offi Visit 11:14:03 CDT CPT-44826 Chest 2V Frontal and Lat 14:00:18 CDT CPT-OV Office Visit 16:10:28 CDT CPT-JTINJ Asp/Joint Injection 09:03:57 CDT CPT-Cryo Cryotherapy 09:35:49 COMMUNITY SERVICE COORDINATOR CPT-JTINJ Asp/Joint Injection 09:34:45 COMMUNITY SERVICE COORDINATOR CPT-J2930 Solu Medrol 125 mg (Methyl Prednisolone Sodium Succinate) 20:37:27 CDT CPT-46417 Abx/Therapy Injection 20:37:27 CDT CPT-98034 Port a cath flush 08:15:51 CDT CPT-43695 Port a cath flush 09:54:16 CDT CPT-14734 Port a cath flush 09:38:02 CDT CPT-68283 Port a cath flush 11:00:27 COMMUNITY SERVICE COORDINATOR
--- OUTSIDE RECORDS SUMMARY | 2017-12-29 05:57 | XMS REPORT | Clinical Summary ---
Author Author Admin, QIE Organization [facility] [employer] Address Unknown Phone Unavailable Allergies, Adverse Reactions, [...] David DO Biceps tendinitis, left ICD-726.12 Inactive Harnider Hernandez DO Nausea and vomiting ICD-787.01 Inactive [...] MG/0.3ML INJ SOAJ 1 INJ NEEDED EPINEPHRINE 52150571114 Active Tawnya Pardo MA Active PREDNISONE 20 MG TAB 1 tab twice daily for 3 day, then one daily for three days PREDNISONE 31948135642 No Longer Active Harinder Hernandez DO Active PREDNISONE 20 MG TAB 1 tablet twice daily for 2 days, then 1 tablet once daily for 2 days PREDNISONE 60951445377 No Longer Active Harinder Hernandez DO Active ASMANEX 120 METERED DOSES 220 MCG/INH INH AEPB 2 puffs orally twice daily MOMETASONE FUROATE 88629660950 Active Jeri Sosa RPT,RMA Active NIFEDIPINE ER 30 MG ORAL [id number] 1 daily NIFEDIPINE 81501525385 Active Kaylah Newberry Active TOPIRAMATE 25 MG TABS 1 tab po BID TOPIRAMATE 14656827507 No Longer Active Nettie Newberry APRN Active AMLODIPINE BESYLATE 5 MG ORAL TABS Take 1 tab po daily AMLODIPINE BESYLATE 12331825618 No Longer Active Nettie Newberry APRN Active MECLIZINE HCL 25 MG TAB 1 tablet three times daily for 3 days, then 1/2 tab three times daily for 3 days. MECLIZINE HCL 12597460343 No Longer Active Nettie Newberry APRN Active AMITRIPTYLINE HCL 25 MG ORAL TABS 1 q hs prn AMITRIPTYLINE HCL 17102898729 No Longer Active Nettie Newberry APRN Active DILAUDID 2 MG ORAL TABS Take 1/2 tab po every 4 hours as needed for pain 2014 HYDROMORPHONE HCL 33398945460 No Longer Active Nettie Newberry APRN Active CLOPIDOGREL BISULFATE 75 MG ORAL TABS 1 tab by mouth once daily CLOPIDOGREL BISULFATE 13728293823 Active Tawnya Pardo MA Active ATORVASTATIN CALCIUM 10 MG ORAL TABS 1 at bedtime ATORVASTATIN CALCIUM 47199658490 Active Tawnya Pardo MA Active LOVASTATIN 40 MG ORAL TABS Take 1 tab po every hs LOVASTATIN 22114760858 No Longer Active Harinder Hernandez DO Active PREDNISONE 20 MG TAB 2 tabs daily for 4 days, 1 tab daily for 4 days, 1/2 tab daily for 4 days PREDNISONE 35828811360 No Longer Active Harinder Hernandez DO Active LEVAQUIN 500 MG ORAL TABS Take 1 tab po daily x 8 days LEVOFLOXACIN 28439850226 No Longer Active Harinder Hernandez DO Active VENTOLIN HFA 108 (90 BASE) MCG/ACT AERS 2 -4 puffs four times a day PRN 2013 ALBUTEROL SULFATE 55176787198 No Longer Active Jeri Sosa RPT,RMA Active ACEBUTOLOL HCL 200 MG CAPS 1 cap in the morning and 2 caps in the evening ACEBUTOLOL HCL 83308330430 No Longer Active Harinder Hernandez DO Active CEFDINIR 300 MG ORAL CAPS take 1 cap po bid x 10 days CEFDINIR 98499156477 No Longer Active Harinder Hernandez DO Active LOVASTATIN 40 MG TABS 1 pill by mouth nightly for cholesterol LOVASTATIN 20836670105 No Longer Active Nettie Newberry APRN Active NITROSTAT 0.4 MG SUBL 1 tab under tongueas needed for chest pain ( may take 3 total, 5 min apart, then call 911) NITROGLYCERIN 67883282303 No Longer Active Nettie Newberry APRN Active POTASSIUM CHLORIDE CR 10 MEQ CPCR 1 capsule by mouth daily 02/14 POTASSIUM CHLORIDE 21541887760 No Longer Active Nettie Newberry APRN Active TESSALON PERLES 100 MG CAP 1 to 2 tablets by mouth 3 times daily as needed for cough BENZONATATE 39384062071 No Longer Active Nettie Newberry APRN Active THEOPHYLLINE ER 200 MG ORAL [id number] Take 1 tab every 12 hours THEOPHYLLINE 19160021121 Active Tawnya Pardo MA Active PREDNISONE 20 MG TAB 2 po qd x 5 days PREDNISONE 13868428438 No Longer Active Jae Morgan MD Active AZITHROMYCIN 250 MG TABS 2 po qd x 1 day, then 1 po qd x 4 days AZITHROMYCIN 13977711838 No Longer Active Jae Morgan MD Active PREDNISONE 20 MG TAB 1 tab twice daily for 3 day, then one daily for three days PREDNISONE 07739868249 No Longer Active Jae Morgan MD Active SINGULAIR 10 MG TABS 1 pill by mouth every evening for breathing. MONTELUKAST SODIUM 17554278567 Active Tawnya Pardo MA Active TYLENOL 325 MG TAB 3 by mouth q4h as needed ACETAMINOPHEN 44218617107 Active Harinder Hernandez DO Active POTASSIUM CHLORIDE ER 10 MEQ CR-TABS take 1 tab po daily POTASSIUM CHLORIDE 49233924712 No Longer Active Harinder Hrenandez DO Active PREDNISONE 20 MG TAB 1 TID x 2 days, then 1 BID x 3 days, then 1 Daily x 3 days, then stop PREDNISONE 32032006524 No Longer Active John Montemayor APRN Active LEVAQUIN 500 MG TAB 1 tablet by mouth daily LEVOFLOXACIN 16179432288 No Longer Active Jillkvng Montemayor APRN Active NEURONTIN 300 MG CAP 1 cap by mouth three times daily for restless leg 06/22 GABAPENTIN 36537278818 No Longer Active Harinder Hernandez DO Active BENZONATATE 100 MG CAPS 1 cap po TID PRN BENZONATATE 59878559626 No Longer Active Harinder Hernandez DO Active MONTELUKAST SODIUM 10 MG TABS 1 tab po in the evening MONTELUKAST SODIUM 15291333482 No Longer Active Harinder Hernandez DO Active MUPIROCIN 2 % OINT apply to affected area BID x 14 days MUPIROCIN 27311205432 No Longer Active Harinder Hernandez DO Active TYLENOL EXTRA STRENGTH 500 MG TABS as needed ACETAMINOPHEN 78194819981 No Longer Active Harinder Hernandez DO Active PREDNISONE 10 MG TABS 1 tab po daily PREDNISONE 39086430482 No Longer Active Harinder Hernandez DO Active PREDNISONE 20 MG TAB 2 tabs daily for 4 days, 1 tab daily for 4 days, 1/2 tab daily for 4 days PREDNISONE 14809092255 No Longer Active Harinder Hernandez DO Active AZITHROMYCIN 250 MG TABS 2 po qd x 1 day, then 1 po qd x 4 days AZITHROMYCIN 83432293212 No Longer Active Harinder Hernandez DO Active PREDNISONE 20 MG TAB 3 tabs today, then 1 tab twice daily for 3 day, then one daily for three days PREDNISONE 61775835292 No Longer Active Harinder Hernandez DO Active NIFEDIAC CC 30 MG [id number] 1 tablet daily for raynaud's syndrome NIFEDIPINE 89350738349 No Longer Active Tawnya Pardo MA Active AMBIEN 10 MG TAB 1/2 tab by mouth at bedtime as needed for sleep ZOLPIDEM TARTRATE 41586230940 Active Harinder Hernandez DO Active CLONAZEPAM 1 MG TABS 1 tablet at bedtime for insomnia and restless legs 09/14 CLONAZEPAM 43641858887 Active Kaylah Newberry Active CLONAZEPAM 0.5 MG TABS 1 tab po daily CLONAZEPAM 81450060721 No Longer Active Harinder Hernandez DO Active PREDNISONE 10 MG TAB 1 tablet daily for COPD PREDNISONE 72805055080 Active Tawnya Pardo MA Active PROAIR HFA 108 (90 BASE) MCG/ACT AERS 2 puffs four times a day as needed 2012 ALBUTEROL SULFATE 26674659063 Active Tawnya Pardo MA Active FLOVENT HFA 110 MCG/ACT AERO 2 puffs inhaled b.i.d. FLUTICASONE PROPIONATE HFA 48552457497 Active Tawnya Pardo MA Active ACIPHEX 20 MG TBEC 1 tab po daily RABEPRAZOLE SODIUM 12862685659 Active Kaylah Newberry Active CLONAZEPAM 0.5 MG TABS 1 tab po daily CLONAZEPAM 0.5 MG TABS 977922 CLONAZEPAM Inactive PREDNISONE 20 MG TAB 3 tabs today, then 1 tab twice daily for 3 day, then one daily for three days PREDNISONE 20 MG TAB 311686 PREDNISONE Inactive PREDNISONE 20 MG TAB 2 tabs daily for 4 days, 1 tab daily for 4 days, 1/2 tab daily for 4 days PREDNISONE 20 MG TAB 634833 PREDNISONE Inactive PREDNISONE 10 MG TABS 1 tab po daily PREDNISONE 10 MG TABS 514224 PREDNISONE Inactive TYLENOL EXTRA STRENGTH 500 MG TABS as needed TYLENOL EXTRA STRENGTH 500 MG TABS 677863 ACETAMINOPHEN Inactive MUPIROCIN 2 % OINT apply to affected area BID x 14 days MUPIROCIN 2 % OINT 277657 MUPIROCIN Inactive MONTELUKAST SODIUM 10 MG TABS 1 tab po in the evening MONTELUKAST SODIUM 10 MG TABS 054697 MONTELUKAST SODIUM Inactive BENZONATATE 100 MG CAPS 1 cap po TID PRN BENZONATATE 100 MG CAPS 679774 BENZONATATE Inactive NEURONTIN 300 MG CAP 1 cap by mouth three times daily for restless leg 06/22 NEURONTIN 300 MG CAP 255310 GABAPENTIN Inactive LEVAQUIN 500 MG TAB 1 tablet by mouth daily LEVAQUIN 500 MG TAB 109170 LEVOFLOXACIN Inactive PREDNISONE 20 MG TAB 1 TID x 2 days, then 1 BID x 3 days, then 1 Daily x 3 days, then stop PREDNISONE 20 MG TAB 567003 PREDNISONE Inactive POTASSIUM CHLORIDE ER 10 MEQ CR-TABS take 1 tab po daily POTASSIUM CHLORIDE ER 10 MEQ CR-TABS POTASSIUM CHLORIDE Inactive PREDNISONE 20 MG TAB 1 tab twice daily for 3 day, then one daily for three days PREDNISONE 20 MG TAB 967948 PREDNISONE Inactive TESSALON PERLES 100 MG CAP 1 to 2 tablets by mouth 3 times daily as needed for cough TESSALON PERLES 100 MG CAP 989876 BENZONATATE Inactive POTASSIUM CHLORIDE CR 10 MEQ CPCR 1 capsule by mouth daily 02/14 POTASSIUM CHLORIDE CR 10 MEQ CPCR POTASSIUM CHLORIDE Inactive NITROSTAT 0.4 MG SUBL 1 tab under tongueas needed for chest pain ( may take 3 total, 5 min apart, then call 911) NITROSTAT 0.4 MG SUBL 275788 NITROGLYCERIN Inactive LOVASTATIN 40 MG TABS 1 pill by mouth nightly for cholesterol LOVASTATIN 40 MG TABS 424846 LOVASTATIN Inactive CEFDINIR 300 MG ORAL CAPS take 1 cap po bid x 10 days CEFDINIR 300 MG ORAL CAPS 635889 CEFDINIR Inactive ACEBUTOLOL HCL 200 MG CAPS 1 cap in the morning and 2 caps in the evening ACEBUTOLOL HCL 200 MG CAPS 878744 ACEBUTOLOL HCL Inactive VENTOLIN HFA 108 (90 BASE) MCG/ACT AERS 2 -4 puffs four times a day PRN 2013 VENTOLIN HFA 108 (90 BASE) MCG/ACT AERS ALBUTEROL SULFATE Inactive LEVAQUIN 500 MG ORAL TABS Take 1 tab po daily x 8 days LEVAQUIN 500 MG ORAL TABS 017610 LEVOFLOXACIN Inactive PREDNISONE 20 MG TAB 2 tabs daily for 4 days, 1 tab daily for 4 days, 1/2 tab daily for 4 days PREDNISONE 20 MG TAB 886078 PREDNISONE Inactive LOVASTATIN 40 MG ORAL TABS Take 1 tab po every hs LOVASTATIN 40 MG ORAL TABS 650872 LOVASTATIN Inactive DILAUDID 2 MG ORAL TABS Take 1/2 tab po every 4 hours as needed for pain 2014 DILAUDID 2 MG ORAL TABS 114421 HYDROMORPHONE HCL Inactive AMITRIPTYLINE HCL 25 MG ORAL TABS 1 q hs prn AMITRIPTYLINE HCL 25 MG ORAL TABS 082902 AMITRIPTYLINE HCL Inactive MECLIZINE HCL 25 MG TAB 1 tablet three times daily for 3 days, then 1/2 tab three times daily for 3 days. MECLIZINE HCL 25 MG TAB 495970 MECLIZINE HCL Inactive AMLODIPINE BESYLATE 5 MG ORAL TABS Take 1 tab po daily AMLODIPINE BESYLATE 5 MG ORAL TABS 286374 AMLODIPINE BESYLATE Inactive TOPIRAMATE 25 MG TABS 1 tab po BID TOPIRAMATE 25 MG TABS 360792 TOPIRAMATE Inactive PREDNISONE 20 MG TAB 1 tablet twice daily for 2 days, then 1 tablet once daily for 2 days PREDNISONE 20 MG TAB 906091 PREDNISONE Inactive PREDNISONE 20 MG TAB 1 tab twice daily for 3 day, then one daily for three days PREDNISONE 20 MG TAB 735096 PREDNISONE Inactive AZITHROMYCIN 250 MG TABS 2 po qd x 1 day, then 1 po qd x 4 days AZITHROMYCIN 250 MG TABS 7413507 AZITHROMYCIN Inactive AZITHROMYCIN 250 MG TABS 2 po qd x 1 day, then 1 po qd x 4 days AZITHROMYCIN 250 MG TABS 3388173 AZITHROMYCIN Inactive PREDNISONE 20 MG TAB 2 po qd x 5 days PREDNISONE 20 MG TAB 404727 PREDNISONE Inactive Vital Signs Date Name Value [...] Magnesium - Chemistry cholesterol, serum 180 mg/dL 136-344 1529/08/08 triglyceride, serum, fasting 92 mg/dL 30-200 HDL cholesterol, serum 66 mg/dL 32-96 LDL cholesterol, serum 96 mg/dL 0-130 sodium, serum 142 mmol/L 173-447 4499/08/08 carbon dioxide, venous blood 27.4 mmol/L 21.0-32.0 [...] 10.0-20.0 Encounters Code Encounter Date Provider Facility CPT-34409 Level 3 Est. Patient 09:58:58 CDT [facility] CPT-09376 Level 3 Est. Patient 12:37:21 CDT [facility] CPT-54990 Level 3 Est. Patient 18:37:17 CDT [facility] CPT-94859 Level 4 Est. Patient 11:15:54 CDT Nettie Newberry [employer] [facility] CPT-51056 Level 3 Est. Patient 16:42:24 CDT [facility] CPT-69691 Level 3 Est. Patient 15:03:36 CDT [facility] CPT-37038 Level 3 Est. Patient 15:03:20 CDT Harinder Hernandez [facility] CPT-03676 Level 3 Est. Patient 12:14:34 CDT Harinder Hernandez [facility] CPT-54090 Level 3 Est. Patient 13:47:15 CDT Harinder Hernandez [facility] CPT-06442 Level 3 Est. Patient 14:08:24 CDT Harinder Hernandez [facility] CPT-69962 Level 3 Est. Patient 10:07:15 CDT Harinder Hernandez [facility] CPT-61686 Level 3 Est. Patient 10:06:59 CDT Harinder Hernandez [facility] CPT-20349 Level 3 Est. Patient 15:53:29 CDT Jae Morgan MD [facility] CPT-55851 Level 3 Est. Patient 17:19:04 CDT Harinder Hernandez [facility] CPT-91911 Level 3 Est. Patient 11:13:01 CDT Harinder Hernandez [facility] CPT-00198 Level 3 Est. Patient 09:03:58 CDT Harinder Hernandez [facility] CPT-37383 Level 3 Est. Patient 14:46:45 ORNAMENT STAPLER Harinder Hernandez [facility] CPT-00050 Level 3 Est. Patient 09:35:49 ORNAMENT STAPLER Harinder Hernandez [facility] CPT-70041 Level 3 Est. Patient 09:29:37 ORNAMENT STAPLER Harinder Hernandez [facility] CPT-44772 Level 3 Est. Patient 15:51:07 CDT Harinder Hernandez [facility] CPT-40012 Level 3 Est. Patient 18:13:13 CDT Harinder Cr [facility] CPT-10920 Level 3 Est. Patient 10:44:19 CDT Harinder Hernandez [facility] CPT-31855 Level 4 Est. Patient 10:07:19 ORNAMENT STAPLER Harinder Hernandez [facility] CPT-96375 Level 3 Est. Patient 15:59:32 ORNAMENT STAPLER Harinder Hernandez [facility] Procedures Code Procedure Name Date Entry Date Standard Description CPT-95899 First Vx - Ix admin for Medicare patients 17:35:15 CDT CPT-38484 Fluzone Preservative Free Intramuscular Suspension 17:35 :15 CDT CPT-46333 Microalbumin - LAB USE ONLY 11:52:05 CDT CPT-TCMM Transitional Care Mgmt-Moderate 11:33:57 CDT CPT-76525 No Charge Offi Visit 14:11:29 CDT CPT-64090 Magnesium - LAB USE ONLY 10:45:44 CDT CPT-37491 Lipid - LAB USE ONLY 10:45:44 CDT CPT-91236 CBC - LAB USE ONLY 10:45:44 CDT CPT-09873 Venipuncture Draw Fee 10:45:43 CDT CPT-29840 Venipuncture Draw Fee 18:21:27 CDT CPT-JTINJ Asp/Joint Injection 18:38:04 CDT CPT-53701 Immunization Each Additional Inj 17:38:04 CDT CPT-21393 Immunization Single Admin 17:38:04 CDT CPT-65745 Prevnar 13 17:38:04 CDT CPT-19674 Fluzone Quadrivalent preservative free (>=3yrs.) 17:38: 04 CDT CPT-06928 No Charge Offi Visit 11:14:03 CDT CPT-22883 Chest 2V Frontal and Lat 14:00:18 CDT CPT-OV Office Visit 16:10:28 CDT CPT-JTINJ Asp/Joint Injection 09:03:57 CDT CPT-Cryo Cryotherapy 09:35:49 ORNAMENT STAPLER CPT-JTINJ Asp/Joint Injection 09:34:45 ORNAMENT STAPLER CPT-J2930 Solu Medrol 125 mg (Methyl Prednisolone Sodium Succinate) 20:37:27 CDT CPT-83863 Abx/Therapy Injection 20:37:27 CDT CPT-01974 Port a cath flush 08:15:51 CDT CPT-45633 Port a cath flush 09:54:16 CDT CPT-09483 Port a cath flush 09:38:02 CDT CPT-34725 Port a cath flush 11:00:27 ORNAMENT STAPLER
--- OUTSIDE RECORDS SUMMARY | 2017-12-29 05:58 | XMS REPORT | Clinical Summary ---
Author Author Admin, QIE Organization [facility] Address Unknown Phone Unavailable Allergies, Adverse [...] not elsewhere classified Myocardial Infarction: 410.90 Active Haridner Hernandez DO Acute myocardial infarction, unspecified site, [...] Patient Instruction NIFEDIPINE ER 30 MG ORAL [id number] 1 daily NIFEDIPINE 60387704224 Active Tawnya Pardo MA Active TOPIRAMATE 25 MG TABS 1 tab po BID TOPIRAMATE 69728840944 No Longer Active Nettie Newberry APRN Active AMLODIPINE BESYLATE 5 MG ORAL TABS Take 1 tab po daily AMLODIPINE BESYLATE 13479002453 No Longer Active Nettie Newberry APRN Active MECLIZINE HCL 25 MG TAB 1 tablet three times daily for 3 days, then 1/2 tab three times daily for 3 days. MECLIZINE HCL 59399423461 No Longer Active Nettie Newberry APRN Active AMITRIPTYLINE HCL 25 MG ORAL TABS 1 q hs prn AMITRIPTYLINE HCL 51056111134 No Longer Active Nettieog Newberry APRN Active DILAUDID 2 MG ORAL TABS Take 1/2 tab po every 4 hours as needed for pain 2014 HYDROMORPHONE HCL 29236646108 No Longer Active Nettie Newberry APRN Active CLOPIDOGREL BISULFATE 75 MG ORAL TABS 1 tab by mouth once daily CLOPIDOGREL BISULFATE 20118122631 Active Tawnya Pardo MA Active ATORVASTATIN CALCIUM 10 MG ORAL TABS 1 at bedtime ATORVASTATIN CALCIUM 27974057746 Active Tawnya Pardo MA Active LOVASTATIN 40 MG ORAL TABS Take 1 tab po every hs LOVASTATIN 38750078052 No Longer Active Harinder Hernandez DO Active PREDNISONE 20 MG TAB 2 tabs daily for 4 days, 1 tab daily for 4 days, 1/2 tab daily for 4 days PREDNISONE 77708396256 No Longer Active Harinder Hernandez DO Active LEVAQUIN 500 MG ORAL TABS Take 1 tab po daily x 8 days LEVOFLOXACIN 04927642867 No Longer Active Harinder Hernandez DO Active VENTOLIN HFA 108 (90 BASE) MCG/ACT AERS 2 -4 puffs four times a day PRN 2013 ALBUTEROL SULFATE 13916429167 No Longer Active Jeri Sosa RPT,RMA Active ACEBUTOLOL HCL 200 MG CAPS 1 cap in the morning and 2 caps in the evening ACEBUTOLOL HCL 92634528155 No Longer Active Harinder Hernandez DO Active CEFDINIR 300 MG ORAL CAPS take 1 cap po bid x 10 days CEFDINIR 44864048940 No Longer Active Harinder Hernandez DO Active LOVASTATIN 40 MG TABS 1 pill by mouth nightly for cholesterol LOVASTATIN 85078721022 No Longer Active Nettie Newberry APRN Active NITROSTAT 0.4 MG SUBL 1 tab under tongueas needed for chest pain ( may take 3 total, 5 min apart, then call 911) NITROGLYCERIN 66888143669 No Longer Active Nettie Newberry APRN Active POTASSIUM CHLORIDE CR 10 MEQ CPCR 1 capsule by mouth daily 02/14 POTASSIUM CHLORIDE 08056836712 No Longer Active Nettieog Newberry APRN Active TESSALON PERLES 100 MG CAP 1 to 2 tablets by mouth 3 times daily as needed for cough BENZONATATE 14344326500 No Longer Active Nettie Newberry APRN Active THEOPHYLLINE ER 200 MG ORAL [id number] Take 1 tab every 12 hours THEOPHYLLINE 88212128010 Active Tawnya Pardo MA Active PREDNISONE 20 MG TAB 2 po qd x 5 days PREDNISONE 51112783643 No Longer Active Jae Morgan MD Active AZITHROMYCIN 250 MG TABS 2 po qd x 1 day, then 1 po qd x 4 days AZITHROMYCIN 61410616022 No Longer Active Jae Morgan MD Active PREDNISONE 20 MG TAB 1 tab twice daily for 3 day, then one daily for three days PREDNISONE 85684321192 No Longer Active Jae Morgan MD Active SINGULAIR 10 MG TABS 1 pill by mouth every evening for breathing. MONTELUKAST SODIUM 10241501408 Active Tawnya Pardo MA Active TYLENOL 325 MG TAB 3 by mouth q4h as needed ACETAMINOPHEN 74504906522 Active Harinder Hernandez DO Active POTASSIUM CHLORIDE ER 10 MEQ CR-TABS take 1 tab po daily POTASSIUM CHLORIDE 38513310249 No Longer Active Harinder Hernandez DO Active PREDNISONE 20 MG TAB 1 TID x 2 days, then 1 BID x 3 days, then 1 Daily x 3 days, then stop PREDNISONE 36356343029 No Longer Active Jillkvng Montemayor APRN Active LEVAQUIN 500 MG TAB 1 tablet by mouth daily LEVOFLOXACIN 73843952814 No Longer Active Jillina Sim MCCRAY Active NEURONTIN 300 MG CAP 1 cap by mouth three times daily for restless leg 06/22 GABAPENTIN 14735062853 No Longer Active Harinder Hernandez DO Active BENZONATATE 100 MG CAPS 1 cap po TID PRN BENZONATATE 14580918826 No Longer Active Harinder Hernandez DO Active MONTELUKAST SODIUM 10 MG TABS 1 tab po in the evening MONTELUKAST SODIUM 95695195198 No Longer Active Harinder Hernandez DO Active MUPIROCIN 2 % OINT apply to affected area BID x 14 days MUPIROCIN 61075667883 No Longer Active Harinder Hernandez DO Active TYLENOL EXTRA STRENGTH 500 MG TABS as needed ACETAMINOPHEN 38474426264 No Longer Active Harinder Hernandez DO Active PREDNISONE 10 MG TABS 1 tab po daily PREDNISONE 86112424500 No Longer Active Harinder Hernandez DO Active PREDNISONE 20 MG TAB 2 tabs daily for 4 days, 1 tab daily for 4 days, 1/2 tab daily for 4 days PREDNISONE 37325989821 No Longer Active Harinder Hernandez DO Active AZITHROMYCIN 250 MG TABS 2 po qd x 1 day, then 1 po qd x 4 days AZITHROMYCIN 43314616984 No Longer Active Harinder Hernandez DO Active PREDNISONE 20 MG TAB 3 tabs today, then 1 tab twice daily for 3 day, then one daily for three days PREDNISONE 46678728975 No Longer Active Harinder Hernandez DO Active NIFEDIAC CC 30 MG [id number] 1 tablet daily for raynaud's syndrome NIFEDIPINE 47794172691 No Longer Active Tawnya Pardo MA Active AMBIEN 10 MG TAB 1/2 tab by mouth at bedtime as needed for sleep ZOLPIDEM TARTRATE 77008688442 Active Harinder Hernandez DO Active CLONAZEPAM 1 MG TABS 1 tablet at bedtime for insomnia and restless legs 09/14 CLONAZEPAM 05341961127 Active Harinder Hernandez DO Active CLONAZEPAM 0.5 MG TABS 1 tab po daily CLONAZEPAM 22985483616 No Longer Active Harinder Hernandez DO Active PREDNISONE 10 MG TAB 1 tablet daily for COPD PREDNISONE 80061272313 Active Tawnya Pardo MA Active PROAIR HFA 108 (90 BASE) MCG/ACT AERS 2 puffs four times a day as needed 2012 ALBUTEROL SULFATE 11044255196 Active Tawnya Pardo MA Active FLOVENT HFA 110 MCG/ACT AERO 2 puffs inhaled b.i.d. FLUTICASONE PROPIONATE HFA 58598267569 Active Tawnya Pardo MA Active EPIPEN 0.3 MG/0.3ML URIEL DIRECTED EPINEPHRINE Active Demetrius JOHNSON Active ACIPHEX 20 MG TBEC 1 tab po daily RABEPRAZOLE SODIUM 89583274287 Active Tawnya Pardo MA Active CLONAZEPAM 0.5 MG TABS 1 tab po daily CLONAZEPAM 0.5 MG TABS 861218 CLONAZEPAM Inactive PREDNISONE 20 MG TAB 3 tabs today, then 1 tab twice daily for 3 day, then one daily for three days PREDNISONE 20 MG TAB 005715 PREDNISONE Inactive PREDNISONE 20 MG TAB 2 tabs daily for 4 days, 1 tab daily for 4 days, 1/2 tab daily for 4 days PREDNISONE 20 MG TAB 115861 PREDNISONE Inactive PREDNISONE 10 MG TABS 1 tab po daily PREDNISONE 10 MG TABS 083056 PREDNISONE Inactive TYLENOL EXTRA STRENGTH 500 MG TABS as needed TYLENOL EXTRA STRENGTH 500 MG TABS ACETAMINOPHEN Inactive MUPIROCIN 2 % OINT apply to affected area BID x 14 days MUPIROCIN 2 % OINT 386267 MUPIROCIN Inactive MONTELUKAST SODIUM 10 MG TABS 1 tab po in the evening MONTELUKAST SODIUM 10 MG TABS 20010818 MONTELUKAST SODIUM Inactive BENZONATATE 100 MG CAPS 1 cap po TID PRN BENZONATATE 100 MG CAPS 170650 BENZONATATE Inactive NEURONTIN 300 MG CAP 1 cap by mouth three times daily for restless leg 06/22 NEURONTIN 300 MG CAP 709811 GABAPENTIN Inactive LEVAQUIN 500 MG TAB 1 tablet by mouth daily LEVAQUIN 500 MG TAB 692779 LEVOFLOXACIN Inactive PREDNISONE 20 MG TAB 1 TID x 2 days, then 1 BID x 3 days, then 1 Daily x 3 days, then stop PREDNISONE 20 MG TAB 962031 PREDNISONE Inactive POTASSIUM CHLORIDE ER 10 MEQ CR-TABS take 1 tab po daily POTASSIUM CHLORIDE ER 10 MEQ CR-TABS POTASSIUM CHLORIDE Inactive PREDNISONE 20 MG TAB 1 tab twice daily for 3 day, then one daily for three days PREDNISONE 20 MG TAB 590419 PREDNISONE Inactive TESSALON PERLES 100 MG CAP 1 to 2 tablets by mouth 3 times daily as needed for cough TESSALON PERLES 100 MG CAP 523918 BENZONATATE Inactive POTASSIUM CHLORIDE CR 10 MEQ [...] nightly for cholesterol LOVASTATIN 40 MG TABS 795265 LOVASTATIN Inactive CEFDINIR 300 MG ORAL CAPS take 1 cap po bid x 10 days CEFDINIR 300 MG ORAL CAPS 833929 CEFDINIR Inactive ACEBUTOLOL HCL 200 MG CAPS 1 cap in the morning and 2 caps in the evening ACEBUTOLOL HCL 200 MG CAPS 805946 ACEBUTOLOL HCL Inactive VENTOLIN HFA 108 (90 BASE) MCG/ACT AERS 2 -4 puffs four times a day PRN 2013 VENTOLIN HFA 108 (90 BASE) MCG/ACT AERS ALBUTEROL SULFATE Inactive LEVAQUIN 500 MG ORAL TABS Take 1 tab po daily x 8 days LEVAQUIN 500 MG ORAL TABS 179098 LEVOFLOXACIN Inactive PREDNISONE 20 MG TAB 2 tabs daily for 4 days, 1 tab daily for 4 days, 1/2 tab daily for 4 days PREDNISONE 20 MG TAB 332236 PREDNISONE Inactive LOVASTATIN 40 MG ORAL TABS Take 1 tab po every hs LOVASTATIN 40 MG ORAL TABS 857660 LOVASTATIN Inactive DILAUDID 2 MG ORAL TABS Take 1/2 tab po every 4 hours as needed for pain 2014 DILAUDID 2 MG ORAL TABS 700668 HYDROMORPHONE HCL Inactive AMITRIPTYLINE HCL 25 MG ORAL TABS 1 q hs prn AMITRIPTYLINE HCL 25 MG ORAL TABS 134516 AMITRIPTYLINE HCL Inactive MECLIZINE HCL 25 MG TAB 1 tablet three times daily for 3 days, then 1/2 tab three times daily for 3 days. MECLIZINE HCL 25 MG TAB 153377 MECLIZINE HCL Inactive AMLODIPINE BESYLATE 5 MG ORAL TABS Take 1 tab po daily AMLODIPINE BESYLATE 5 MG ORAL TABS 054451 AMLODIPINE BESYLATE Inactive TOPIRAMATE 25 MG TABS 1 tab po BID TOPIRAMATE 25 MG TABS 379675 TOPIRAMATE Inactive AZITHROMYCIN 250 MG TABS 2 po qd x 1 day, then 1 po qd x 4 days AZITHROMYCIN 250 MG TABS 1825763 AZITHROMYCIN Inactive AZITHROMYCIN 250 MG TABS 2 po qd x 1 day, then 1 po qd x 4 days AZITHROMYCIN 250 MG TABS 7524747 AZITHROMYCIN Inactive PREDNISONE 20 MG TAB 2 po qd x 5 days PREDNISONE 20 MG TAB 592863 PREDNISONE Inactive Vital Signs Date Name Value [...] Panel - Chemistry sodium, serum 138 mmol/L 259-636 5324/09/24 potassium, serum 3.5 mmol/L 3.5-5.2 chloride, serum [...] 142-424 Encounters Code Encounter Date Provider Facility CPT-24758 Level 4 Est. 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 Patient 16:42:24 CDT Harinder Cr [facility] CPT-54859 Level 3 Est. Patient 15:03:36 CDT Harinder Hernandez [facility] CPT-10003 Level 3 Est. Patient 15:03:20 CDT Harinder Cr [facility] CPT-20285 Level 3 Est. Patient 12:14:34 CDT Harinder Hernandez [facility] CPT-56404 Level 3 Est. Patient 13:47:15 CDT Harinder Cr [facility] CPT-65839 Level 3 Est. Patient 14:08:24 CDT Harinder Hernandez [facility] CPT-94338 Level 3 Est. Patient 10:07:15 CDT Harinder Cr [facility] CPT-50264 Level 3 Est. Patient 10:06:59 CDT Harinder Hernandez [facility] CPT-90605 Level 3 Est. Patient 15:53:29 CDT Jae Morgan [facility] CPT-74647 Level 3 Est. Patient 17:19:04 CDT Harinder Hernandez [facility] CPT-32813 Level 3 Est. Patient 11:13:01 CDT Harinder Hernandez [facility] CPT-04196 Level 3 Est. Patient 09:03:58 CDT Harinder Hernandez [facility] CPT-73237 Level 3 Est. Patient 14:46:45 LICENSED LOAN OFFICER Harinder Hernandez [facility] CPT-82627 Level 3 Est. Patient 09:35:49 LICENSED LOAN OFFICER Harinder Hernandez [facility] CPT-51763 Level 3 Est. Patient 09:29:37 LICENSED LOAN OFFICER Harinder Hernandez [facility] CPT-45309 Level 3 Est. Patient 15:51:07 CDT Harinder Hernandez [facility] CPT-66435 Level 3 Est. Patient 18:13:13 CDT Harinder Hernandez [facility] CPT-39329 Level 3 Est. Patient 10:44:19 CDT Harinder Hernandez [facility] CPT-49011 Level 4 Est. Patient 10:07:19 LICENSED LOAN OFFICER Harinder Hernandez [facility] CPT-27871 Level 3 Est. Patient 15:59:32 LICENSED LOAN OFFICER Harinder Hernandez [facility] Procedures Code Procedure Name Date Entry Date Standard Description CPT-78086 Immunization Each Additional Inj 17:38:04 CDT CPT-50736 Immunization Single Admin 17:38:04 CDT CPT-58226 Prevnar 13 17:38:04 CDT CPT-03985 Fluzone Quadrivalent preservative free (>=3yrs.) 17:38: 04 CDT CPT-07270 No Charge Offi Visit 11:14:03 CDT CPT-55010 Chest 2V Frontal and Lat 14:00:18 CDT CPT-OV Office Visit 16:10:28 CDT CPT-JTINJ Asp/Joint Injection 09:03:57 CDT CPT-Cryo Cryotherapy 09:35:49 LICENSED LOAN OFFICER CPT-JTINJ Asp/Joint Injection 09:34:45 LICENSED LOAN OFFICER CPT-J2930 Solu Medrol 125 mg (Methyl Prednisolone Sodium Succinate) 20:37:27 CDT CPT-55085 Abx/Therapy Injection 20:37:27 CDT CPT-84176 Port a cath flush 08:15:51 CDT CPT-48657 Port a cath flush 09:54:16 CDT CPT-20482 Port a cath flush 09:38:02 CDT CPT-70603 Port a cath flush 11:00:27 LICENSED LOAN OFFICER
--- OUTSIDE RECORDS SUMMARY | 2017-12-29 05:58 | XMS REPORT | Clinical Summary ---
Author Author Admin, KAIN Organization [facility] Address Unknown Phone Unavailable Allergies, Adverse Reactions, Alerts Allergy Name Reaction Description Start Date Severity Status Provider AITHROMYCIN itch Moderate Active Harinder Hernandez DO NEOSPORIN Critical Active Harinder Hernandez DO TRAMADOL HCL Critical Active Harinder W David DO REQUIP Critical Active Harinder W David DO PENICILLIN V POTASSIUM Critical Active Harinder W Dvaid DO MORPHINE Critical Active Harinder W David [...] screening V76.51 Active [facility] ASSOCIATE ENTERTAINMENT EDITOR Screening for malignant neoplasms of colon Screening for malignant neoplasm, colon V76.51 Active [facility] ASSOCIATE ENTERTAINMENT EDITOR Screening for malignant neoplasms of colon Nausea and vomiting ICD-787.01 Inactive Jae Morgan MD Diarrhea ICD-787.91 Inactive Jae Morgan MD Medication List Medication Instructions Start Date Stop Date Generic Name NDC Status Provider Patient Instruction AMITRIPTYLINE HCL 25 MG ORAL TABS 1 q hs prn AMITRIPTYLINE HCL 71047172449 Active Nettie Newberry APRN Active LOVASTATIN 40 MG TABS 1 pill by mouth nightly for cholesterol LOVASTATIN 65050599762 No Longer Active Nettie Newberry APRN Active NITROSTAT 0.4 MG SUBL 1 tab under tongueas needed for chest pain ( may take 3 total, 5 min apart, then call 911) NITROGLYCERIN 89083530525 No Longer Active Nettie Newberry APRN Active POTASSIUM CHLORIDE CR 10 MEQ CPCR 1 capsule by mouth daily 02/14 POTASSIUM CHLORIDE 80216289941 No Longer Active Nettie Newberry APRN Active TESSALON PERLES 100 MG CAP 1 to 2 tablets by mouth 3 times daily as needed for cough BENZONATATE 55930151933 No Longer Active Nettie Newberry APRN Active THEOPHYLLINE ER 200 MG ORAL [id number] Take 1 tab every 12 hours THEOPHYLLINE 01909619151 Active Trixie Martin LPN Active PREDNISONE 20 MG TAB 2 po qd x 5 days PREDNISONE 30291130272 No Longer Active Jae Morgan MD Active AZITHROMYCIN 250 MG TABS 2 po qd x 1 day, then 1 po qd x 4 days AZITHROMYCIN 16228832698 No Longer Active Jae Morgan MD Active PREDNISONE 20 MG TAB 1 tab twice daily for 3 day, then one daily for three days PREDNISONE 00370418654 No Longer Active Jae Morgan MD Active MECLIZINE HCL 25 MG TAB 1 tablet three times daily for 3 days, then 1/2 tab three times daily for 3 days. MECLIZINE HCL 31232776214 Active Harinder Hernandez DO Active SINGULAIR 10 MG TABS 1 pill by mouth every evening for breathing. MONTELUKAST SODIUM 82798255426 Active Harinder Hernandez DO Active TYLENOL 325 MG TAB 3 by mouth q4h as needed ACETAMINOPHEN 23121850099 Active Harinder Hernandez DO Active POTASSIUM CHLORIDE ER 10 MEQ CR-TABS take 1 tab po daily POTASSIUM CHLORIDE 98997486894 No Longer Active Harinder Hernandez DO Active PREDNISONE 20 MG TAB 1 TID x 2 days, then 1 BID x 3 days, then 1 Daily x 3 days, then stop PREDNISONE 80711233217 No Longer Active Jillina Frazell ASSOCIATE ENTERTAINMENT EDITOR Active LEVAQUIN 500 MG TAB 1 tablet by mouth daily LEVOFLOXACIN 41068055889 No Longer Active Jillina Frazell ASSOCIATE ENTERTAINMENT EDITOR Active NEURONTIN 300 MG CAP 1 cap by mouth three times daily for restless leg 06/22 GABAPENTIN 23753183313 No Longer Active Harinder Hernandez DO Active BENZONATATE 100 MG CAPS 1 cap po TID PRN BENZONATATE 93579573449 No Longer Active Harinder Hernandez DO Active MONTELUKAST SODIUM 10 MG TABS 1 tab po in the evening MONTELUKAST SODIUM 25690654713 No Longer Active Harinder Hernandez DO Active MUPIROCIN 2 % OINT apply to affected area BID x 14 days MUPIROCIN 60648813007 No Longer Active Harinder Hernandez DO Active TYLENOL EXTRA STRENGTH 500 MG TABS as needed ACETAMINOPHEN 54031314701 No Longer Active Harinder Hernandez DO Active PREDNISONE 10 MG TABS 1 tab po daily PREDNISONE 34424379149 No Longer Active Harinder Hernandez DO Active PREDNISONE 20 MG TAB 2 tabs daily for 4 days, 1 tab daily for 4 days, 1/2 tab daily for 4 days PREDNISONE 79982434664 No Longer Active Harinder Hernandez DO Active AZITHROMYCIN 250 MG TABS 2 po qd x 1 day, then 1 po qd x 4 days AZITHROMYCIN 64612222299 No Longer Active Harinder Hernandez DO Active PREDNISONE 20 MG TAB 3 tabs today, then 1 tab twice daily for 3 day, then one daily for three days PREDNISONE 07083664720 No Longer Active Harinder Hernandez DO Active NIFEDIAC CC 30 MG [id number] 1 tablet daily for raynaud's syndrome NIFEDIPINE 83371860055 Active Lobito Smith MD Active AMBIEN 10 MG TAB 1/2 tab by mouth at bedtime as needed for sleep ZOLPIDEM TARTRATE 41801397639 Active Johny Dawkins MD Active VENTOLIN HFA 108 (90 BASE) MCG/ACT AERS 2 -4 puffs four times a day PRN 2013 ALBUTEROL SULFATE 45590151382 Active Lobito Smith MD Active CLONAZEPAM 1 MG TABS 1 tablet at bedtime for insomnia and restless legs 09/14 CLONAZEPAM 80105035068 Active Harinder Hernandez DO Active CLONAZEPAM 0.5 MG TABS 1 tab po daily CLONAZEPAM 37646429182 No Longer Active Harinder Hernandez DO Active PREDNISONE 10 MG TAB 1 tablet daily for COPD PREDNISONE 32318275780 Active Harinder Hernandez DO Active PROAIR HFA 108 (90 BASE) MCG/ACT AERS 2 puffs four times a day as needed 2012 ALBUTEROL SULFATE 25457054256 Active Harinder Hernandez DO Active FLOVENT HFA 110 MCG/ACT AERO 2 puffs inhaled b.i.d. FLUTICASONE PROPIONATE HFA 61530960827 Active Harinder Hernandez DO Active EPIPEN 0.3 MG/0.3ML URIEL DIRECTED EPINEPHRINE Active Demetrius JOHNSON Active ACIPHEX 20 MG TBEC 1 tab po daily RABEPRAZOLE SODIUM 91588382284 Active Harinder Hernandez DO Active TOPIRAMATE 25 MG TABS 1 tab po BID TOPIRAMATE 05748237264 Active Lobito Smith MD Active ACEBUTOLOL HCL 200 MG CAPS 1 cap in the morning and 2 caps in the evening ACEBUTOLOL HCL 63558451791 Active Harinder Hernandez DO Active CLONAZEPAM 0.5 MG TABS 1 tab po daily CLONAZEPAM 0.5 MG TABS 145127 CLONAZEPAM Inactive PREDNISONE 20 MG TAB 3 tabs today, then 1 tab twice daily for 3 day, then one daily for three days PREDNISONE 20 MG TAB 073438 PREDNISONE Inactive PREDNISONE 20 MG TAB 2 tabs daily for 4 days, 1 tab daily for 4 days, 1/2 tab daily for 4 days PREDNISONE 20 MG TAB 543786 PREDNISONE Inactive PREDNISONE 10 MG TABS 1 tab po daily PREDNISONE 10 MG TABS 902733 PREDNISONE Inactive TYLENOL EXTRA STRENGTH 500 MG TABS as needed TYLENOL EXTRA STRENGTH 500 MG TABS 540494 ACETAMINOPHEN Inactive MUPIROCIN 2 % OINT apply to affected area BID x 14 days MUPIROCIN 2 % OINT 570282 MUPIROCIN Inactive MONTELUKAST SODIUM 10 MG TABS 1 tab po in the evening MONTELUKAST SODIUM 10 MG TABS 945114 MONTELUKAST SODIUM Inactive BENZONATATE 100 MG CAPS 1 cap po TID PRN BENZONATATE 100 MG CAPS 027341 BENZONATATE Inactive NEURONTIN 300 MG CAP 1 cap by mouth three times daily for restless leg 06/22 NEURONTIN 300 MG CAP 588232 GABAPENTIN Inactive LEVAQUIN 500 MG TAB 1 tablet by mouth daily LEVAQUIN 500 MG TAB 331481 LEVOFLOXACIN Inactive PREDNISONE 20 MG TAB 1 TID x 2 days, then 1 BID x 3 days, then 1 Daily x 3 days, then stop PREDNISONE 20 MG TAB 075493 PREDNISONE Inactive POTASSIUM CHLORIDE ER 10 MEQ CR-TABS take 1 tab po daily POTASSIUM CHLORIDE ER 10 MEQ CR-TABS POTASSIUM CHLORIDE Inactive PREDNISONE 20 MG TAB 1 tab twice daily for 3 day, then one daily for three days PREDNISONE 20 MG TAB 370264 PREDNISONE Inactive TESSALON PERLES 100 MG CAP 1 to 2 tablets by mouth 3 times daily as needed for cough TESSALON PERLES 100 MG CAP 504609 BENZONATATE Inactive POTASSIUM CHLORIDE CR 10 MEQ [...] nightly for cholesterol LOVASTATIN 40 MG TABS 061233 LOVASTATIN Inactive AZITHROMYCIN 250 MG TABS 2 po qd x 1 day, then 1 po qd x 4 days AZITHROMYCIN 250 MG TABS 9718308 AZITHROMYCIN Inactive AZITHROMYCIN 250 MG TABS 2 po qd x 1 day, then 1 po qd x 4 days AZITHROMYCIN 250 MG TABS 8492708 AZITHROMYCIN Inactive PREDNISONE 20 MG TAB 2 po qd x 5 days PREDNISONE 20 MG TAB 688523 PREDNISONE Inactive Vital Signs Date Name Value [...] AUTO - Chemistry sodium, serum 141 mmol/L 372-543 8084/03/02 potassium, serum 3.4 mmol/L 3.5-5.2 chloride, serum [...] ... - Chemistry sodium, serum 139 mmol/L 713-807 1918/11/24 potassium, serum 4.0 mmol/L 3.5-5.2 chloride, serum [...] 1.93 m[iU]/mL 0.36-3.74 cholesterol, serum 248 mg/dL 735-872 4846/11/24 triglyceride, serum, fasting 104 mg/dL 30-200 HDL [...] 10.0-20.0 Encounters Code Encounter Date Provider Facility CPT-11576 Level 3 Est. Patient 10:07:15 CDT Harinder Hernandez [facility] CPT-18329 Level 3 Est. Patient 10:06:59 CDT Harinder Hernandez [facility] CPT-03552 Level 3 Est. Patient 15:53:29 CDT Jae Morgan MD [facility] CPT-24350 Level 3 Est. Patient 17:19:04 CDT Harinder Hernandez [facility] CPT-94666 Level 3 Est. Patient 11:13:01 CDT Harinder Hernandez [facility] CPT-37831 Level 3 Est. Patient 09:03:58 CDT Harinder Hernandez [facility] CPT-63819 Level 3 Est. Patient 14:46:45 CRAB BUTCHER Harinder Hernandez [facility] CPT-91841 Level 3 Est. Patient 09:35:49 CRAB BUTCHER Harinder Hernandez [facility] CPT-03594 Level 3 Est. Patient 09:29:37 CRAB BUTCHER Harinder Hernandez [facility] CPT-53245 Level 3 Est. Patient 15:51:07 CDT Harinder Hernandez [facility] CPT-55910 Level 3 Est. Patient 18:13:13 CDT Harinder Hernandez [facility] CPT-46964 Level 3 Est. Patient 10:44:19 CDT Harinder Hernandez [facility] CPT-89360 Level 4 Est. Patient 10:07:19 CRAB BUTCHER [address]inder Cr [facility] CPT-68726 Level 3 Est. Patient 15:59:32 CRAB BUTCHER Harinder Cr [facility] Procedures Code Procedure Name Date Entry Date Standard Description CPT-OV Office Visit 16:10:28 CDT CPT-JTINJ Asp/Joint Injection 09:03:57 CDT CPT-Cryo Cryotherapy 09:35:49 CRAB BUTCHER CPT-JTINJ Asp/Joint Injection 09:34:45 CRAB BUTCHER CPT-J2930 Solu Medrol 125 mg (Methyl Prednisolone Sodium Succinate) 20:37:27 CDT CPT-62813 Abx/Therapy Injection 20:37:27 CDT CPT-53359 Port a cath flush 08:15:51 CDT CPT-95972 Port a cath flush 09:54:16 CDT CPT-62647 Port a cath flush 09:38:02 CDT CPT-15277 Port a cath flush 11:00:27 CRAB BUTCHER
--- OUTSIDE RECORDS SUMMARY | 2017-12-29 06:00 | XMS REPORT | Clinical Summary ---
[...] right lower quadrant ICD-789.03 Inactive Harinder W Davdi DO Needs vaccination for influenza ICD-V04.81 Inactive [...] TABLET 1 tablet by mouth daily SPIRONOLACTONE 34285077556 No Longer Active Jeri Nieto Active PREDNISONE 20 MG ORAL TABLET 2 tablets by mouth today, then 1 tablet by mouth days 2-3 PREDNISONE 41388100710 No Longer Active Jeri Nieto Active NITROSTAT 0.4 MG SUBLINGUAL TABLET SUBLINGUAL 1 tab SL q5min PRN chest pain NITROGLYCERIN 16118207389 Active Meenu Alejo LPN Active THEOPHYLLINE ER 300 MG ORAL TABLET EXTENDED RELEASE 12 HOUR 1 po BID THEOPHYLLINE 33551215716 Active Kortney Mccain Active POTASSIUM CHLORIDE ER 20 MEQ ORAL TABLET EXTENDED RELEASE 1 po q day POTASSIUM CHLORIDE 22526482223 Active Kortney Mccain Active POTASSIUM CHLORIDE 20 MEQ ORAL PACKET 1 tab po q day POTASSIUM CHLORIDE 66419825019 No Longer Active Kortney Mccain Active POTASSIUM CHLORIDE ER 10 MEQ ORAL CAPSULE EXTENDED RELEASE 1 capsule BID 2016 POTASSIUM CHLORIDE 34304057455 No Longer Active Kortney Mccain Active LASIX 20 MG ORAL TABLET 1 tablet by mouth every morning FUROSEMIDE 51283404585 No Longer Active Kortney Mccain Active FLUOXETINE HCL 10 MG ORAL CAPSULE 1 po qd for depression/anxiety FLUOXETINE HCL 80319117865 Active Meenu Alejo LPN Active VOLTAREN 1 % TRANSDERMAL GEL apply q 6-8 hour to left arm as needed for pain DICLOFENAC SODIUM 48186511116 Active Kortney Mccain Active ALBUTEROL SULFATE (2.5 MG/3ML) 0.083% INHALATION NEBULIZATION SOLUTION 1 vial neb q 4hrs for severe asthma. 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 NIFEDIPINE 07633036224 Active Kortney Mccain Active AMLODIPINE BESYLATE 5 MG ORAL TABLET 1 tablet by mouth daily 2016 AMLODIPINE BESYLATE 16745071866 No Longer Active Harinder Hernandez DO Active TOPAMAX 25 MG ORAL TABLET 1 tab po BID TOPIRAMATE 32711723801 Active Kortney Mccain Active FLUTICASONE PROPIONATE 50 MCG/ACT NASAL SUSPENSION 2 sprays per nostril daily PRN Allergies FLUTICASONE PROPIONATE 09970663536 Active Meenu Alejo LPN Active NIFEDIPINE ER 30 MG ORAL TABLET EXTENDED RELEASE 24 HOUR 1 daily NIFEDIPINE 05599980818 No Longer Active Harinder Hernandez DO Active FLOVENT HFA 110 MCG/ACT INHALATION AEROSOL 2 puffs inhaled b.i.d. FLUTICASONE PROPIONATE HFA 36724264441 Active Harinder Hernandez DO Active EPIPEN 2-BRUNA 0.3 MG/0.3ML INJECTION SOLUTION AUTO-INJECTOR 1 INJ NEEDED EPINEPHRINE 12592792389 Active Meenu Alejo LPN Active PREDNISONE 20 MG ORAL TABLET 1 tab twice daily for 3 day, then one daily for three days PREDNISONE 20655804711 No Longer Active Harinder Hernandez DO Active PREDNISONE 20 MG ORAL TABLET 1 tablet twice daily for 2 days, then 1 tablet once daily for 2 days PREDNISONE 58882693506 No Longer Active Harinder Hernandez DO Active ASMANEX 120 METERED DOSES 220 MCG/INH INHALATION AEROSOL POWDER BREATH ACTIVATED 2 puffs orally twice daily MOMETASONE FUROATE 53345529738 Active Jeri Sosa LPN Active TOPIRAMATE 25 MG ORAL TABLET 1 tab po BID TOPIRAMATE 06193208369 No Longer Active Nettie Newberry MAHENDRA Active AMLODIPINE BESYLATE 5 MG ORAL TABLET Take 1 tab po daily AMLODIPINE BESYLATE 06668906030 No Longer Active Nettie Newberry MAHENDRA Active MECLIZINE HCL 25 MG ORAL TABLET 1 tablet three times daily for 3 days, then 1/ 2 tab three times daily for 3 days. MECLIZINE HCL 37240718664 No Longer Active Nettieog Newberry APRN Active AMITRIPTYLINE HCL 25 MG ORAL TABLET 1 q hs prn AMITRIPTYLINE HCL 63283211727 No Longer Active Nettie Newberry MAHENDRA Active DILAUDID 2 MG ORAL TABLET Take 1/2 tab po every 4 hours as needed for pain HYDROMORPHONE HCL 61483793303 No Longer Active Nettieog Newberry APRN Active CLOPIDOGREL BISULFATE 75 MG ORAL TABLET 1 tab by mouth once daily CLOPIDOGREL BISULFATE 60032037234 Active Meenu Alejo LPN Active ATORVASTATIN CALCIUM 10 MG ORAL TABLET 1 at bedtime ATORVASTATIN CALCIUM 05644894061 Active Kortney Mccain Active LOVASTATIN 40 MG ORAL TABLET Take 1 tab po every hs LOVASTATIN 44045561778 No Longer Active Harinder Hernandez DO Active PREDNISONE 20 MG ORAL TABLET 2 tabs daily for 4 days, 1 tab daily for 4 days, 1/2 tab daily for 4 days PREDNISONE 50154454366 No Longer Active Harinder Hernandez DO Active LEVAQUIN 500 MG ORAL TABLET Take 1 tab po daily x 8 days LEVOFLOXACIN 65526622177 No Longer Active Harinder Hernandez DO Active VENTOLIN HFA 108 (90 Base) MCG/ACT INHALATION AEROSOL SOLUTION 2 -4 puffs four times a day PRN ALBUTEROL SULFATE 38180526461 No Longer Active Jeri Sosa LPN Active ACEBUTOLOL HCL 200 MG ORAL CAPSULE 1 cap in the morning and 2 caps in the evening ACEBUTOLOL HCL 51751687713 No Longer Active Harinder Hernandez DO Active CEFDINIR 300 MG ORAL CAPSULE take 1 cap po bid x 10 days CEFDINIR 64320269893 No Longer Active Harinder Hernandez DO Active LOVASTATIN 40 MG ORAL TABLET 1 pill by mouth nightly for cholesterol LOVASTATIN 62466940829 No Longer Active Nettie Newberry APRN Active NITROSTAT 0.4 MG SUBLINGUAL TABLET SUBLINGUAL 1 tab under tongueas needed for chest pain ( may take 3 total, 5 min apart, then call 911) NITROGLYCERIN 74051903462 No Longer Active Nettie Newberry APRN Active POTASSIUM CHLORIDE ER 10 MEQ ORAL CAPSULE EXTENDED RELEASE 1 capsule by mouth daily POTASSIUM CHLORIDE 23265057882 No Longer Active Nettie Newberry APRN Active TESSALON PERLES 100 MG ORAL CAPSULE 1 to 2 tablets by mouth 3 times daily as needed for cough BENZONATATE 38165577555 No Longer Active Nettie Newberry APRN Active PREDNISONE 20 MG ORAL TABLET 2 po qd x 5 days PREDNISONE 98893713398 No Longer Active Jae Morgan MD Active AZITHROMYCIN 250 MG ORAL TABLET 2 po qd x 1 day, then 1 po qd x 4 days 12/30 AZITHROMYCIN 40335634972 No Longer Active Jae Morgan MD Active PREDNISONE 20 MG ORAL TABLET 1 tab twice daily for 3 day, then one daily for three days PREDNISONE 97651352957 No Longer Active Jae Morgan MD Active SINGULAIR 10 MG ORAL TABLET 1 pill by mouth every evening for breathing. 2014 MONTELUKAST SODIUM 78711775467 Active Meenu Alejo LPN Active TYLENOL 325 MG ORAL TABLET 3 by mouth q4h as needed ACETAMINOPHEN 82968478012 Active Harinder Hernandez DO Active POTASSIUM CHLORIDE ER 10 MEQ ORAL TABLET EXTENDED RELEASE take 1 tab po daily POTASSIUM CHLORIDE 62546568962 No Longer Active Harinder Hernandez DO Active PREDNISONE 20 MG ORAL TABLET 1 TID x 2 days, then 1 BID x 3 days, then 1 Daily x 3 days, then stop PREDNISONE 23151667902 No Longer Active Jialec Montemayor APRN Active LEVAQUIN 500 MG ORAL TABLET 1 tablet by mouth daily LEVOFLOXACIN 00511180326 No Longer Active Jillina Fradankl CLAIMS SPECIALIST Active NEURONTIN 300 MG ORAL CAPSULE 1 cap by mouth three times daily for restless leg GABAPENTIN 53364250055 No Longer Active Harinder Hernandez DO Active BENZONATATE 100 MG ORAL CAPSULE 1 cap po TID PRN BENZONATATE 69476562776 No Longer Active Harinder Hernandez DO Active MONTELUKAST SODIUM 10 MG ORAL TABLET 1 tab po in the evening 2014 MONTELUKAST SODIUM 41725877396 No Longer Active Harinder Hernandez DO Active MUPIROCIN 2 % EXTERNAL OINTMENT apply to affected area BID x 14 days MUPIROCIN 12008796162 No Longer Active Harinder Hernandez DO Active TYLENOL EXTRA STRENGTH 500 MG ORAL TABLET as needed ACETAMINOPHEN 50234941406 No Longer Active Harinder Hernandez DO Active PREDNISONE 10 MG ORAL TABLET 1 tab po daily PREDNISONE 70757427878 No Longer Active Harinder Hernandez DO Active PREDNISONE 20 MG ORAL TABLET 2 tabs daily for 4 days, 1 tab daily for 4 days, 1/2 tab daily for 4 days PREDNISONE 51937182986 No Longer Active Harinder Hernandez DO Active AZITHROMYCIN 250 MG ORAL TABLET 2 po qd x 1 day, then 1 po qd x 4 days 04/06 AZITHROMYCIN 65020349717 No Longer Active Harinder Hernandez DO Active PREDNISONE 20 MG ORAL TABLET 3 tabs today, then 1 tab twice daily for 3 day, then one daily for three days PREDNISONE 28290036542 No Longer Active Harinder Hernandez DO Active NIFEDIAC CC 30 MG ORAL TABLET EXTENDED RELEASE 24 HOUR 1 tablet daily for raynaud's syndrome NIFEDIPINE 61563837804 No Longer Active Tawnya Pardo MA Active AMBIEN 10 MG ORAL TABLET 1/2 tab by mouth at bedtime as needed for sleep 2013 ZOLPIDEM TARTRATE 01764465502 Active Meenu Alejo LPN Active CLONAZEPAM 1 MG ORAL TABLET 1 tablet at bedtime for insomnia and restless legs CLONAZEPAM 96344261650 Active Meenu Alejo LPN Active CLONAZEPAM 0.5 MG ORAL TABLET 1 tab po daily CLONAZEPAM 20125457360 No Longer Active Harinder Hernandez DO Active PREDNISONE 10 MG ORAL TABLET 1 tablet daily for COPD PREDNISONE 52889223515 Active Kortney Mccain Active PROAIR HFA 108 (90 Base) MCG/ACT INHALATION AEROSOL SOLUTION 2 puffs four times a day as needed ALBUTEROL SULFATE 25811575990 Active Harinder Hernandez DO Active FLOVENT HFA 110 MCG/ACT INHALATION AEROSOL 2 puffs inhaled b.i.d. FLUTICASONE PROPIONATE HFA 28393226759 Active Kortney Mccain Active ACIPHEX 20 MG ORAL TABLET DELAYED RELEASE 1 tab po daily RABEPRAZOLE SODIUM 63122022621 Active Meenu Alejo LPN Active CLONAZEPAM 0.5 MG ORAL TABLET 1 tab po daily CLONAZEPAM 0.5 MG ORAL TABLET 966923 CLONAZEPAM Inactive PREDNISONE 20 MG ORAL TABLET 3 tabs today, then 1 tab twice daily for 3 day, then one daily for three days PREDNISONE 20 MG ORAL TABLET 301120 PREDNISONE Inactive PREDNISONE 20 MG ORAL TABLET 2 tabs daily for 4 days, 1 tab daily for 4 days, 1/2 tab daily for 4 days PREDNISONE 20 MG ORAL TABLET 548759 PREDNISONE Inactive PREDNISONE 10 MG ORAL TABLET 1 tab po daily PREDNISONE 10 MG ORAL TABLET 917834 PREDNISONE Inactive TYLENOL EXTRA STRENGTH 500 MG ORAL TABLET as needed TYLENOL EXTRA STRENGTH 500 MG ORAL TABLET 086753 ACETAMINOPHEN Inactive MUPIROCIN 2 % EXTERNAL OINTMENT apply to affected area BID x 14 days MUPIROCIN 2 % EXTERNAL OINTMENT 262348 MUPIROCIN Inactive MONTELUKAST SODIUM 10 MG ORAL TABLET 1 tab po in the evening 2014 MONTELUKAST SODIUM 10 MG ORAL TABLET 588066 MONTELUKAST SODIUM Inactive BENZONATATE 100 MG ORAL CAPSULE 1 cap po TID PRN BENZONATATE 100 MG ORAL CAPSULE 762060 BENZONATATE Inactive NEURONTIN 300 MG ORAL CAPSULE 1 cap by mouth three times daily for restless leg NEURONTIN 300 MG ORAL CAPSULE 783353 GABAPENTIN Inactive LEVAQUIN 500 MG ORAL TABLET 1 tablet by mouth daily LEVAQUIN 500 MG ORAL TABLET 601809 LEVOFLOXACIN Inactive PREDNISONE 20 MG ORAL TABLET 1 TID x 2 days, then 1 BID x 3 days, then 1 Daily x 3 days, then stop PREDNISONE 20 MG ORAL TABLET 659200 PREDNISONE Inactive POTASSIUM CHLORIDE ER 10 MEQ ORAL TABLET EXTENDED RELEASE take 1 tab po daily POTASSIUM CHLORIDE ER 10 MEQ ORAL TABLET EXTENDED RELEASE POTASSIUM CHLORIDE Inactive PREDNISONE 20 MG ORAL TABLET 1 tab twice daily for 3 day, then one daily for three days PREDNISONE 20 MG ORAL TABLET 584388 PREDNISONE Inactive TESSALON PERLES 100 MG ORAL CAPSULE 1 to 2 tablets by mouth 3 times daily as needed for cough TESSALON PERLES 100 MG ORAL CAPSULE 279142 BENZONATATE Inactive POTASSIUM CHLORIDE ER 10 MEQ ORAL CAPSULE EXTENDED RELEASE 1 capsule by mouth daily POTASSIUM CHLORIDE ER 10 MEQ ORAL CAPSULE EXTENDED RELEASE POTASSIUM CHLORIDE Inactive NITROSTAT 0.4 MG SUBLINGUAL TABLET SUBLINGUAL 1 tab under tongueas needed for chest pain ( may take 3 total, 5 min apart, then call 911) NITROSTAT 0.4 MG SUBLINGUAL TABLET SUBLINGUAL 705025 NITROGLYCERIN Inactive LOVASTATIN 40 MG ORAL TABLET 1 pill by mouth nightly for cholesterol LOVASTATIN 40 MG ORAL TABLET 775419 LOVASTATIN Inactive CEFDINIR 300 MG ORAL CAPSULE take 1 cap po bid x 10 days CEFDINIR 300 MG ORAL CAPSULE 367674 CEFDINIR Inactive ACEBUTOLOL HCL 200 MG ORAL CAPSULE 1 cap in the morning and 2 caps in the evening ACEBUTOLOL HCL 200 MG ORAL CAPSULE 446405 ACEBUTOLOL HCL Inactive VENTOLIN HFA 108 (90 Base) MCG/ACT INHALATION AEROSOL SOLUTION 2 -4 puffs four times a day PRN VENTOLIN HFA 108 (90 Base) MCG/ ACT INHALATION AEROSOL SOLUTION ALBUTEROL SULFATE Inactive LEVAQUIN 500 MG ORAL TABLET Take 1 tab po daily x 8 days LEVAQUIN 500 MG ORAL TABLET 406831 LEVOFLOXACIN Inactive PREDNISONE 20 MG ORAL TABLET 2 tabs daily for 4 days, 1 tab daily for 4 days, 1/2 tab daily for 4 days PREDNISONE 20 MG ORAL TABLET 112950 PREDNISONE Inactive LOVASTATIN 40 MG ORAL TABLET Take 1 tab po every hs LOVASTATIN 40 MG ORAL TABLET 130458 LOVASTATIN Inactive DILAUDID 2 MG ORAL TABLET Take 1/2 tab po every 4 hours as needed for pain DILAUDID 2 MG ORAL TABLET 430124 HYDROMORPHONE HCL Inactive AMITRIPTYLINE HCL 25 MG ORAL TABLET 1 q hs prn AMITRIPTYLINE HCL 25 MG ORAL TABLET 529879 AMITRIPTYLINE HCL Inactive MECLIZINE HCL 25 MG ORAL TABLET 1 tablet three times daily for 3 days, then 1/ 2 tab three times daily for 3 days. MECLIZINE HCL 25 MG ORAL TABLET 478623 MECLIZINE HCL Inactive AMLODIPINE BESYLATE 5 MG ORAL TABLET Take 1 tab po daily AMLODIPINE BESYLATE 5 MG ORAL TABLET 501707 AMLODIPINE BESYLATE Inactive TOPIRAMATE 25 MG ORAL TABLET 1 tab po BID TOPIRAMATE 25 MG ORAL TABLET 885799 TOPIRAMATE Inactive PREDNISONE 20 MG ORAL TABLET 1 tablet twice daily for 2 days, then 1 tablet once daily for 2 days PREDNISONE 20 MG ORAL TABLET 031343 PREDNISONE Inactive PREDNISONE 20 MG ORAL TABLET 1 tab twice daily for 3 day, then one daily for three days PREDNISONE 20 MG ORAL TABLET 784277 PREDNISONE Inactive NIFEDIPINE ER 30 MG ORAL TABLET EXTENDED RELEASE 24 HOUR 1 daily NIFEDIPINE ER 30 MG ORAL TABLET EXTENDED RELEASE 24 HOUR NIFEDIPINE Inactive AMLODIPINE BESYLATE 5 MG ORAL TABLET 1 tablet by mouth daily 2016 AMLODIPINE BESYLATE 5 MG ORAL TABLET 267110 AMLODIPINE BESYLATE Inactive LASIX 20 MG ORAL TABLET 1 tablet by mouth every morning LASIX 20 MG ORAL TABLET 255183 FUROSEMIDE Inactive POTASSIUM CHLORIDE ER 10 MEQ ORAL CAPSULE EXTENDED RELEASE 1 capsule BID 2016 POTASSIUM CHLORIDE ER 10 MEQ ORAL CAPSULE EXTENDED RELEASE POTASSIUM CHLORIDE Inactive POTASSIUM CHLORIDE 20 MEQ ORAL PACKET 1 tab po q day POTASSIUM CHLORIDE 20 MEQ ORAL PACKET 6737025 POTASSIUM CHLORIDE Inactive PREDNISONE 20 MG ORAL TABLET 2 tablets by mouth today, then 1 tablet by mouth days 2-3 PREDNISONE 20 MG ORAL TABLET 024191 PREDNISONE Inactive SPIRONOLACTONE 25 MG ORAL TABLET 1 tablet by mouth daily SPIRONOLACTONE 25 MG ORAL TABLET 061009 SPIRONOLACTONE Inactive AZITHROMYCIN 250 MG ORAL TABLET 2 po qd x 1 day, then 1 po qd x 4 days 04/06 AZITHROMYCIN 250 MG ORAL TABLET 064290 AZITHROMYCIN Inactive AZITHROMYCIN 250 MG ORAL TABLET 2 po qd x 1 day, then 1 po qd x 4 days 12/30 AZITHROMYCIN 250 MG ORAL TABLET 313432 AZITHROMYCIN Inactive PREDNISONE 20 MG ORAL TABLET 2 po qd x 5 days PREDNISONE 20 MG ORAL TABLET 286898 PREDNISONE Inactive Vital Signs Date Name Value [...] Panel - Chemistry sodium, serum 140 mmol/L 152-108 7027/07/13 potassium, serum 3.2 mmol/L 3.5-5.2 chloride, serum 103 mmol/L 98-107 carbon dioxide, venous blood 26.9 mmol/L 21.0-32.0 blood glucose 93 mg/dL 65-110 calcium, serum 9.2 mg/dL 8.5-10.1 urea nitrogen, blood 13 mg/dL 7-18 creatinine, serum 0.84 mg/dL 0.60-1.30 sodium, serum 140 mmol/L 610-127 1773/08/21 potassium, serum 3.8 mmol/L 3.5-5.2 chloride, serum [...] ... - Chemistry sodium, serum 141 mmol/L 460-332 4656/08/07 carbon dioxide, venous blood 34.0 mmol/L 21.0-32.0 [...] 1.40 mg/dL 0.00-1.00 cholesterol, serum 192 mg/dL 094-986 9940/10/19 triglyceride, serum, fasting 71 mg/dL 30-200 HDL cholesterol, serum 72 mg/dL 32-60 LDL cholesterol, serum 106 mg/dL 0-130 Lab Report: Rapid Strep - Lab Microbial identification kit, rapid strep method Negative Negative Lab Report: THEOPHYLLINE - Toxicology theophylline level, serum 3.1 ug/mL 10.0-20.0 Encounters Code Encounter Date Provider Facility CPT-35100 Level 3 Est. Patient 12:36:15 WEB MARKETING INTERN Harinder Cr [facility] CPT-73302 Level 3 Est. Patient 15:14:45 WEB MARKETING INTERN Harinder Cr [facility] CPT-20295 Level 4 Est. Patient 14:45:25 CDT Harinder Cr [facility] CPT-90250 Level 4 Est. Patient 09:15:13 CDT Harinder Cr [facility] CPT-83398 Level 3 Est. Patient 11:51:58 CDT Harinder Cr [facility] CPT-78308 Level 3 Est. Patient 11:30:05 CDT Harinder Cr [facility] CPT-82293 Level 4 Est. Patient 10:19:23 CDT Harinder Cr [facility] CPT-32230 Level 3 Est. Patient 09:58:58 CDT Harinder Cr [facility] CPT-70293 Level 3 Est. Patient 12:37:21 CDT Harinder Cr [facility] CPT-18436 Level 3 Est. Patient 18:37:17 CDT Harinder Cr [facility] CPT-10549 Level 4 Est. Patient 11:15:54 CDT Nettie Rohith [facility] CPT-99364 Level 3 Est. Patient 16:42:24 CDT Harinder Cr [facility] CPT-58903 Level 3 Est. Patient 15:03:36 CDT Harinder Cr [facility] CPT-20362 Level 3 Est. Patient 15:03:20 CDT Harinder Shaye [facility] CPT-29204 Level 3 Est. Patient 12:14:34 CDT Harinder Shaye [facility] CPT-89381 Level 3 Est. Patient 13:47:15 CDT Harinder Cr [facility] CPT-44040 Level 3 Est. Patient 14:08:24 CDT Harinder Hernandez [facility] CPT-94060 Level 3 Est. Patient 10:07:15 CDT Harinder Hernandez [facility] CPT-89852 Level 3 Est. Patient 10:06:59 CDT Harinder Hernandez [facility] CPT-43669 Level 3 Est. Patient 15:53:29 CDT Jae Morgan MD [facility] CPT-71564 Level 3 Est. Patient 17:19:04 CDT Harinder Hernandez [facility] CPT-12561 Level 3 Est. Patient 11:13:01 CDT Harinder Hernandez [facility] CPT-64411 Level 3 Est. Patient 09:03:58 CDT Harinedr Hernandez [facility] CPT-18298 Level 3 Est. Patient 14:46:45 WEB MARKETING INTERN Harinder Hernandez [facility] CPT-72376 Level 3 Est. Patient 09:35:49 WEB MARKETING INTERN Harinder Hernandez [facility] CPT-17522 Level 3 Est. Patient 09:29:37 WEB MARKETING INTERN Harinder Hernandez [facility] CPT-32478 Level 3 Est. Patient 15:51:07 CDT Harinder Hernandez [facility] CPT-07157 Level 3 Est. Patient 18:13:13 CDT Harinder Hernandez [facility] CPT-08744 Level 3 Est. Patient 10:44:19 CDT Harinder Shaye [facility] CPT-03090 Level 4 Est. Patient 10:07:19 WEB MARKETING INTERN Harinder Cr [facility] CPT-54776 Level 3 Est. Patient 15:59:32 WEB MARKETING INTERN Harinder Cr [facility] Procedures Code Procedure Name Date Entry Date Standard Description CPT-93452 Abd compl w upright - XRAY USE ONLY 14:48:09 CDT 02/18 CPT-56626 Port a cath flush 13:46:05 CDT CPT-72984 Hip, complete, 2-3 views - XRAY USE ONLY 10:28:40 CDT CPT-15782 BMP - LAB USE ONLY 16:45:09 WE[employer] MARKETING INTERN CPT-54339 Port a cath flush 12:00:13 WE[employer] MARKETING INTERN CPT-TCMM Transitional Care Mgmt-Moderate 11:20:16 WEB MARKETING INTERN CPT-95991 First Vx - Ix admin for Medicare patients 17:35:15 CDT CPT-25287 Fluzone Preservative Free Intramuscular Suspension 17:35 :15 CDT CPT-10215 Microalbumin - LAB USE ONLY 11:52:05 CDT CPT-TCMM Transitional Care Mgmt-Moderate 11:33:57 CDT CPT-21436 No Charge Offi Visit 14:11:29 CDT CPT-23158 Magnesium - LAB USE ONLY 10:45:44 CDT CPT-02413 Lipid - LAB USE ONLY 10:45:44 CDT CPT-77245 CBC - LAB USE ONLY 10:45:44 CDT CPT-51799 Venipuncture Draw Fee 10:45:43 CDT CPT-39541 Venipuncture Draw Fee 18:21:27 CDT CPT-JTINJ Asp/Joint Injection 18:38:04 CDT CPT-20717 Immunization Each Additional Inj 17:38:04 CDT CPT-24398 Immunization Single Admin 17:38:04 CDT CPT-75775 Prevnar 13 17:38:04 CDT CPT-44400 Fluzone Quadrivalent preservative free (>=3yrs.) 17:38: 04 CDT CPT-57321 No Charge Offi Visit 11:14:03 CDT CPT-80099 Chest 2V Frontal and Lat 14:00:18 CDT CPT-OV Office Visit 16:10:28 CDT CPT-JTINJ Asp/Joint Injection 09:03:57 CDT CPT-Cryo Cryotherapy 09:35:49 WE[employer] MARKETING INTERN CPT-JTINJ Asp/Joint Injection 09:34:45 WEB MARKETING INTERN CPT-J2930 Solu Medrol 125 mg (Methyl Prednisolone Sodium Succinate) 20:37:27 CDT CPT-13952 Abx/Therapy Injection 20:37:27 CDT CPT-68696 Port a cath flush 08:15:51 CDT CPT-28472 Port a cath flush 09:54:16 CDT CPT-34811 Port a cath flush 09:38:02 CDT CPT-52089 Port a cath flush 11:00:27 WEB MARKETING INTERN
--- OUTSIDE RECORDS SUMMARY | 2017-12-29 06:01 | XMS REPORT | Clinical Summary ---
Author Author Admin, QIE Organization [facility] [employer] Address Unknown Phone Unavailable Allergies, Adverse Reactions, [...] Harinder Hernandez DO MORPHINE Critical Active Harinder Hernandze DO LATEX Critical Active Harinder Hernandez DO IBUPROFEN Critical Active Harinder Hernandez DO HYDROCODONE-ACETAMINOPHEN Critical Active Harinder Hernandez DO [facility] CORTISONE LONG-LASTING Critical Active Harinder Hernandez DO AVELOX Critical Active Harinder Hernandez DO DOXYCYCLINE Critical Active Harinder Hernandez DO CODEINE Critical Active Harinder Hernandez DO BENADRYL Critical Active Harinder Hernandez DO BACLOFEN Critical Active Harinder Heranndez DO ASA Critical Active Harinder Hernandez DO [...] TABLET 1 tablet by mouth daily SPIRONOLACTONE 04332899359 No Longer Active Jeri Nieto Active PREDNISONE 20 MG ORAL TABLET 2 tablets by mouth today, then 1 tablet by mouth days 2-3 PREDNISONE 11862415410 No Longer Active Jeri Nieto Active NITROSTAT 0.4 MG SUBLINGUAL TABLET SUBLINGUAL 1 tab SL q5min PRN chest pain NITROGLYCERIN 07939531433 Active Meenu Alejo LPN Active THEOPHYLLINE ER 300 MG ORAL TABLET EXTENDED RELEASE 12 HOUR 1 po BID THEOPHYLLINE 41552208622 Active Kortney Mccain Active POTASSIUM CHLORIDE ER 20 MEQ ORAL TABLET EXTENDED RELEASE 1 po q day POTASSIUM CHLORIDE 46446541816 Active Kortney Mccain Active POTASSIUM CHLORIDE 20 MEQ ORAL PACKET 1 tab po q day POTASSIUM CHLORIDE 00668218308 No Longer Active Kortney Mccain Active POTASSIUM CHLORIDE ER 10 MEQ ORAL CAPSULE EXTENDED RELEASE 1 capsule BID 2016 POTASSIUM CHLORIDE 21457593637 No Longer Active Kortney Mccain Active LASIX 20 MG ORAL TABLET 1 tablet by mouth every morning FUROSEMIDE 24881891139 No Longer Active Kortney Mccain Active FLUOXETINE HCL 10 MG ORAL CAPSULE 1 po qd for depression/anxiety FLUOXETINE HCL 98689179619 Active Harinder Hernandez DO Active VOLTAREN 1 % TRANSDERMAL GEL apply q 6-8 hour to left arm as needed for pain DICLOFENAC SODIUM 16929063600 Active Kortney Mccain Active ALBUTEROL SULFATE (2.5 MG/3ML) 0.083% INHALATION NEBULIZATION SOLUTION 1 vial neb q 4hrs for severe asthma. 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 NIFEDIPINE 13988296995 Active Kortney Mccain Active AMLODIPINE BESYLATE 5 MG ORAL TABLET 1 tablet by mouth daily 2016 AMLODIPINE BESYLATE 65227032110 No Longer Active Harinder Hernandez DO Active TOPAMAX 25 MG ORAL TABLET 1 tab po BID TOPIRAMATE 73563449102 Active Kortney Mccain Active FLUTICASONE PROPIONATE 50 MCG/ACT NASAL SUSPENSION 2 sprays per nostril daily PRN Allergies FLUTICASONE PROPIONATE 89217981685 Active Meenu Alejo LPN Active NIFEDIPINE ER 30 MG ORAL TABLET EXTENDED RELEASE 24 HOUR 1 daily NIFEDIPINE 37028239728 No Longer Active Harinder Hernandez DO Active FLOVENT HFA 110 MCG/ACT INHALATION AEROSOL 2 puffs inhaled b.i.d. FLUTICASONE PROPIONATE HFA 99067405732 Active Harinder Hernandez DO Active EPIPEN 2-BRUNA 0.3 MG/0.3ML INJECTION SOLUTION AUTO-INJECTOR 1 INJ NEEDED EPINEPHRINE 24535057827 Active Kortney Mccain Active PREDNISONE 20 MG ORAL TABLET 1 tab twice daily for 3 day, then one daily for three days PREDNISONE 40631423050 No Longer Active Harinder Hernandez DO Active PREDNISONE 20 MG ORAL TABLET 1 tablet twice daily for 2 days, then 1 tablet once daily for 2 days PREDNISONE 27536039937 No Longer Active Harinder Hernandez DO Active ASMANEX 120 METERED DOSES 220 MCG/INH INHALATION AEROSOL POWDER BREATH ACTIVATED 2 puffs orally twice daily MOMETASONE FUROATE 18559201521 Active Jeri Sosa LPN Active TOPIRAMATE 25 MG ORAL TABLET 1 tab po BID TOPIRAMATE 17490181673 No Longer Active Nettie Newberry MAHENDRA Active AMLODIPINE BESYLATE 5 MG ORAL TABLET Take 1 tab po daily AMLODIPINE BESYLATE 66844181360 No Longer Active Nettie Newberry MAHENDRA Active MECLIZINE HCL 25 MG ORAL TABLET 1 tablet three times daily for 3 days, then 1/ 2 tab three times daily for 3 days. MECLIZINE HCL 98324375771 No Longer Active Nettieog Newberry APRN Active AMITRIPTYLINE HCL 25 MG ORAL TABLET 1 q hs prn AMITRIPTYLINE HCL 15803349978 No Longer Active Nettie Newberry MAHENDRA Active DILAUDID 2 MG ORAL TABLET Take 1/2 tab po every 4 hours as needed for pain HYDROMORPHONE HCL 36015298732 No Longer Active Nettieog Newberry APRN Active CLOPIDOGREL BISULFATE 75 MG ORAL TABLET 1 tab by mouth once daily CLOPIDOGREL BISULFATE 80488717985 Active Meenu Alejo LPN Active ATORVASTATIN CALCIUM 10 MG ORAL TABLET 1 at bedtime ATORVASTATIN CALCIUM 22297641108 Active Kortney Mccain Active LOVASTATIN 40 MG ORAL TABLET Take 1 tab po every hs LOVASTATIN 85613293547 No Longer Active Harinder Hernandez DO Active PREDNISONE 20 MG ORAL TABLET 2 tabs daily for 4 days, 1 tab daily for 4 days, 1/2 tab daily for 4 days PREDNISONE 74404014488 No Longer Active Harinder Hernandez DO Active LEVAQUIN 500 MG ORAL TABLET Take 1 tab po daily x 8 days LEVOFLOXACIN 19876678788 No Longer Active Harinder Hernandez DO Active VENTOLIN HFA 108 (90 Base) MCG/ACT INHALATION AEROSOL SOLUTION 2 -4 puffs four times a day PRN ALBUTEROL SULFATE 82152025284 No Longer Active Jeri Sosa LPN Active ACEBUTOLOL HCL 200 MG ORAL CAPSULE 1 cap in the morning and 2 caps in the evening ACEBUTOLOL HCL 71305881707 No Longer Active Harinder W David DO Active CEFDINIR 300 MG ORAL CAPSULE take 1 cap po bid x 10 days CEFDINIR 01709583823 No Longer Active Harinder Hernandez DO Active LOVASTATIN 40 MG ORAL TABLET 1 pill by mouth nightly for cholesterol LOVASTATIN 24474260226 No Longer Active Nettie Newberry APRN Active NITROSTAT 0.4 MG SUBLINGUAL TABLET SUBLINGUAL 1 tab under tongueas needed for chest pain ( may take 3 total, 5 min apart, then call 911) NITROGLYCERIN 06763099676 No Longer Active Nettie Newberry APRN Active POTASSIUM CHLORIDE ER 10 MEQ ORAL CAPSULE EXTENDED RELEASE 1 capsule by mouth daily POTASSIUM CHLORIDE 71989489099 No Longer Active Nettie Newberry APRN Active TESSALON PERLES 100 MG ORAL CAPSULE 1 to 2 tablets by mouth 3 times daily as needed for cough BENZONATATE 66410581723 No Longer Active Nettie Newberry APRN Active PREDNISONE 20 MG ORAL TABLET 2 po qd x 5 days PREDNISONE 56146216185 No Longer Active Jae Morgan MD Active AZITHROMYCIN 250 MG ORAL TABLET 2 po qd x 1 day, then 1 po qd x 4 days 12/30 AZITHROMYCIN 75822944388 No Longer Active Jae Morgan MD Active PREDNISONE 20 MG ORAL TABLET 1 tab twice daily for 3 day, then one daily for three days PREDNISONE 51648009673 No Longer Active Jae Morgan MD Active SINGULAIR 10 MG ORAL TABLET 1 pill by mouth every evening for breathing. 2014 MONTELUKAST SODIUM 51301289131 Active Meenu Alejo LPN Active TYLENOL 325 MG ORAL TABLET 3 by mouth q4h as needed ACETAMINOPHEN 06307948811 Active Harinder Hernandez DO Active POTASSIUM CHLORIDE ER 10 MEQ ORAL TABLET EXTENDED RELEASE take 1 tab po daily POTASSIUM CHLORIDE 94128153784 No Longer Active Harinder Hernandez DO Active PREDNISONE 20 MG ORAL TABLET 1 TID x 2 days, then 1 BID x 3 days, then 1 Daily x 3 days, then stop PREDNISONE 64257374873 No Longer Active John Montemayor APRN Active LEVAQUIN 500 MG ORAL TABLET 1 tablet by mouth daily LEVOFLOXACIN 76577615177 No Longer Active Jillina Sim MCCRAY Active NEURONTIN 300 MG ORAL CAPSULE 1 cap by mouth three times daily for restless leg GABAPENTIN 91586889102 No Longer Active Harinder Hernandez DO Active BENZONATATE 100 MG ORAL CAPSULE 1 cap po TID PRN BENZONATATE 66396221406 No Longer Active Harinder Hernandez DO Active MONTELUKAST SODIUM 10 MG ORAL TABLET 1 tab po in the evening 2014 MONTELUKAST SODIUM 67920647158 No Longer Active Harinder Hernandez DO Active MUPIROCIN 2 % EXTERNAL OINTMENT apply to affected area BID x 14 days MUPIROCIN 14496367820 No Longer Active Harinder Hernandez DO Active TYLENOL EXTRA STRENGTH 500 MG ORAL TABLET as needed ACETAMINOPHEN 54966145019 No Longer Active Harinder Hernandez DO Active PREDNISONE 10 MG ORAL TABLET 1 tab po daily PREDNISONE 65117994513 No Longer Active Harinder Hernandez DO Active PREDNISONE 20 MG ORAL TABLET 2 tabs daily for 4 days, 1 tab daily for 4 days, 1/2 tab daily for 4 days PREDNISONE 96406833865 No Longer Active Harinder Hernandez DO Active AZITHROMYCIN 250 MG ORAL TABLET 2 po qd x 1 day, then 1 po qd x 4 days 04/06 AZITHROMYCIN 55524563175 No Longer Active Harinder Hernandez DO Active PREDNISONE 20 MG ORAL TABLET 3 tabs today, then 1 tab twice daily for 3 day, then one daily for three days PREDNISONE 84902657404 No Longer Active Harinder Hernandez DO Active NIFEDIAC CC 30 MG ORAL TABLET EXTENDED RELEASE 24 HOUR 1 tablet daily for raynaud's syndrome NIFEDIPINE 78027045570 No Longer Active Tawnya Pardo MA Active AMBIEN 10 MG ORAL TABLET 1/2 tab by mouth at bedtime as needed for sleep 2013 ZOLPIDEM TARTRATE 13316276556 Active Meenu Villarrealnader CHEN Active CLONAZEPAM 1 MG ORAL TABLET 1 tablet at bedtime for insomnia and restless legs CLONAZEPAM 18389862573 Active Harinder Hernandez DO Active CLONAZEPAM 0.5 MG ORAL TABLET 1 tab po daily CLONAZEPAM 54393350082 No Longer Active Harinder Hernandez DO Active PREDNISONE 10 MG ORAL TABLET 1 tablet daily for COPD PREDNISONE 62616283918 Active Kortney Mccain Active PROAIR HFA 108 (90 Base) MCG/ACT INHALATION AEROSOL SOLUTION 2 puffs four times a day as needed ALBUTEROL SULFATE 56588847849 Active Harinder Hernandez DO Active FLOVENT HFA 110 MCG/ACT INHALATION AEROSOL 2 puffs inhaled b.i.d. FLUTICASONE PROPIONATE HFA 91890044936 Active Kortney Mccain Active ACIPHEX 20 MG ORAL TABLET DELAYED RELEASE 1 tab po daily RABEPRAZOLE SODIUM 10800374106 Active Kaylah Newberry Active CLONAZEPAM 0.5 MG ORAL TABLET 1 tab po daily CLONAZEPAM 0.5 MG ORAL TABLET 703530 CLONAZEPAM Inactive PREDNISONE 20 MG ORAL TABLET 3 tabs today, then 1 tab twice daily for 3 day, then one daily for three days PREDNISONE 20 MG ORAL TABLET 237909 PREDNISONE Inactive PREDNISONE 20 MG ORAL TABLET 2 tabs daily for 4 days, 1 tab daily for 4 days, 1/2 tab daily for 4 days PREDNISONE 20 MG ORAL TABLET 665614 PREDNISONE Inactive PREDNISONE 10 MG ORAL TABLET 1 tab po daily PREDNISONE 10 MG ORAL TABLET 300503 PREDNISONE Inactive TYLENOL EXTRA STRENGTH 500 MG ORAL TABLET as needed TYLENOL EXTRA STRENGTH 500 MG ORAL TABLET 446152 ACETAMINOPHEN Inactive MUPIROCIN 2 % EXTERNAL OINTMENT apply to affected area BID x 14 days MUPIROCIN 2 % EXTERNAL OINTMENT 408938 MUPIROCIN Inactive MONTELUKAST SODIUM 10 MG ORAL TABLET 1 tab po in the evening 2014 MONTELUKAST SODIUM 10 MG ORAL TABLET 630694 MONTELUKAST SODIUM Inactive BENZONATATE 100 MG ORAL CAPSULE 1 cap po TID PRN BENZONATATE 100 MG ORAL CAPSULE 629836 BENZONATATE Inactive NEURONTIN 300 MG ORAL CAPSULE 1 cap by mouth three times daily for restless leg NEURONTIN 300 MG ORAL CAPSULE 932617 GABAPENTIN Inactive LEVAQUIN 500 MG ORAL TABLET 1 tablet by mouth daily LEVAQUIN 500 MG ORAL TABLET 606633 LEVOFLOXACIN Inactive PREDNISONE 20 MG ORAL TABLET 1 TID x 2 days, then 1 BID x 3 days, then 1 Daily x 3 days, then stop PREDNISONE 20 MG ORAL TABLET 814472 PREDNISONE Inactive POTASSIUM CHLORIDE ER 10 MEQ ORAL TABLET EXTENDED RELEASE take 1 tab po daily POTASSIUM CHLORIDE ER 10 MEQ ORAL TABLET EXTENDED RELEASE POTASSIUM CHLORIDE Inactive PREDNISONE 20 MG ORAL TABLET 1 tab twice daily for 3 day, then one daily for three days PREDNISONE 20 MG ORAL TABLET 716565 PREDNISONE Inactive TESSALON PERLES 100 MG ORAL CAPSULE 1 to 2 tablets by mouth 3 times daily as needed for cough TESSALON PERLES 100 MG ORAL CAPSULE 593869 BENZONATATE Inactive POTASSIUM CHLORIDE ER 10 MEQ ORAL CAPSULE EXTENDED RELEASE 1 capsule by mouth daily POTASSIUM CHLORIDE ER 10 MEQ ORAL CAPSULE EXTENDED RELEASE POTASSIUM CHLORIDE Inactive NITROSTAT 0.4 MG SUBLINGUAL TABLET SUBLINGUAL 1 tab under tongueas needed for chest pain ( may take 3 total, 5 min apart, then call 911) NITROSTAT 0.4 MG SUBLINGUAL TABLET SUBLINGUAL 563823 NITROGLYCERIN Inactive LOVASTATIN 40 MG ORAL TABLET 1 pill by mouth nightly for cholesterol LOVASTATIN 40 MG ORAL TABLET 642898 LOVASTATIN Inactive CEFDINIR 300 MG ORAL CAPSULE take 1 cap po bid x 10 days CEFDINIR 300 MG ORAL CAPSULE 575611 CEFDINIR Inactive ACEBUTOLOL HCL 200 MG ORAL CAPSULE 1 cap in the morning and 2 caps in the evening ACEBUTOLOL HCL 200 MG ORAL CAPSULE 521472 ACEBUTOLOL HCL Inactive VENTOLIN HFA 108 (90 Base) MCG/ACT INHALATION AEROSOL SOLUTION 2 -4 puffs four times a day PRN VENTOLIN HFA 108 (90 Base) MCG/ ACT INHALATION AEROSOL SOLUTION ALBUTEROL SULFATE Inactive LEVAQUIN 500 MG ORAL TABLET Take 1 tab po daily x 8 days LEVAQUIN 500 MG ORAL TABLET 570691 LEVOFLOXACIN Inactive PREDNISONE 20 MG ORAL TABLET 2 tabs daily for 4 days, 1 tab daily for 4 days, 1/2 tab daily for 4 days PREDNISONE 20 MG ORAL TABLET 049846 PREDNISONE Inactive LOVASTATIN 40 MG ORAL TABLET Take 1 tab po every hs LOVASTATIN 40 MG ORAL TABLET 031150 LOVASTATIN Inactive DILAUDID 2 MG ORAL TABLET Take 1/2 tab po every 4 hours as needed for pain DILAUDID 2 MG ORAL TABLET 142659 HYDROMORPHONE HCL Inactive AMITRIPTYLINE HCL 25 MG ORAL TABLET 1 q hs prn AMITRIPTYLINE HCL 25 MG ORAL TABLET 259922 AMITRIPTYLINE HCL Inactive MECLIZINE HCL 25 MG ORAL TABLET 1 tablet three times daily for 3 days, then 1/ 2 tab three times daily for 3 days. MECLIZINE HCL 25 MG ORAL TABLET 579231 MECLIZINE HCL Inactive AMLODIPINE BESYLATE 5 MG ORAL TABLET Take 1 tab po daily AMLODIPINE BESYLATE 5 MG ORAL TABLET 418926 AMLODIPINE BESYLATE Inactive TOPIRAMATE 25 MG ORAL TABLET 1 tab po BID TOPIRAMATE 25 MG ORAL TABLET 957440 TOPIRAMATE Inactive PREDNISONE 20 MG ORAL TABLET 1 tablet twice daily for 2 days, then 1 tablet once daily for 2 days PREDNISONE 20 MG ORAL TABLET 215126 PREDNISONE Inactive PREDNISONE 20 MG ORAL TABLET 1 tab twice daily for 3 day, then one daily for three days PREDNISONE 20 MG ORAL TABLET 919309 PREDNISONE Inactive NIFEDIPINE ER 30 MG ORAL TABLET EXTENDED RELEASE 24 HOUR 1 daily NIFEDIPINE ER 30 MG ORAL TABLET EXTENDED RELEASE 24 HOUR NIFEDIPINE Inactive AMLODIPINE BESYLATE 5 MG ORAL TABLET 1 tablet by mouth daily 2016 AMLODIPINE BESYLATE 5 MG ORAL TABLET 910690 AMLODIPINE BESYLATE Inactive LASIX 20 MG ORAL TABLET 1 tablet by mouth every morning LASIX 20 MG ORAL TABLET 233411 FUROSEMIDE Inactive POTASSIUM CHLORIDE ER 10 MEQ ORAL CAPSULE EXTENDED RELEASE 1 capsule BID 2016 POTASSIUM CHLORIDE ER 10 MEQ ORAL CAPSULE EXTENDED RELEASE POTASSIUM CHLORIDE Inactive POTASSIUM CHLORIDE 20 MEQ ORAL PACKET 1 tab po q day POTASSIUM CHLORIDE 20 MEQ ORAL PACKET 4483850 POTASSIUM CHLORIDE Inactive PREDNISONE 20 MG ORAL TABLET 2 tablets by mouth today, then 1 tablet by mouth days 2-3 PREDNISONE 20 MG ORAL TABLET 499547 PREDNISONE Inactive SPIRONOLACTONE 25 MG ORAL TABLET 1 tablet by mouth daily SPIRONOLACTONE 25 MG ORAL TABLET 840088 SPIRONOLACTONE Inactive AZITHROMYCIN 250 MG ORAL TABLET 2 po qd x 1 day, then 1 po qd x 4 days 04/06 AZITHROMYCIN 250 MG ORAL TABLET 949785 AZITHROMYCIN Inactive AZITHROMYCIN 250 MG ORAL TABLET 2 po qd x 1 day, then 1 po qd x 4 days 12/30 AZITHROMYCIN 250 MG ORAL TABLET 651193 AZITHROMYCIN Inactive PREDNISONE 20 MG ORAL TABLET 2 po qd x 5 days PREDNISONE 20 MG ORAL TABLET 401886 PREDNISONE Inactive Vital Signs Date Name Value [...] Panel - Chemistry sodium, serum 140 mmol/L 552-239 7575/07/13 potassium, serum 3.2 mmol/L 3.5-5.2 chloride, serum 103 mmol/L 98-107 carbon dioxide, venous blood 26.9 mmol/L 21.0-32.0 blood glucose 93 mg/dL 65-110 calcium, serum 9.2 mg/dL 8.5-10.1 urea nitrogen, blood 13 mg/dL 7-18 creatinine, serum 0.84 mg/dL 0.60-1.30 sodium, serum 140 mmol/L 990-410 3986/08/21 potassium, serum 3.8 mmol/L 3.5-5.2 chloride, serum [...] ... - Chemistry sodium, serum 141 mmol/L 961-489 9222/08/07 carbon dioxide, venous blood 34.0 mmol/L 21.0-32.0 [...] 1.40 mg/dL 0.00-1.00 cholesterol, serum 192 mg/dL 565-077 3146/10/19 triglyceride, serum, fasting 71 mg/dL 30-200 HDL cholesterol, serum 72 mg/dL 32-60 LDL cholesterol, serum 106 mg/dL 0-130 Lab Report: Rapid Strep - Lab Microbial identification kit, rapid strep method Negative Negative Lab Report: THEOPHYLLINE - Toxicology theophylline level, serum 3.1 ug/mL 10.0-20.0 Encounters Code Encounter Date Provider Facility CPT-68352 Level 3 Est. Patient 12:36:15 [employer] [facility] [place] CPT-70728 Level 3 Est. Patient 15:14:45 [employer] [facility] [place] CPT-50384 Level 4 Est. Patient 14:45:25 CDT [facility] [place] CPT-08467 Level 4 Est. Patient 09:15:13 CDT [facility] [place] CPT-29024 Level 3 Est. Patient 11:51:58 CDT [facility] [place] CPT-86269 Level 3 Est. Patient 11:30:05 CDT [facility] [place] CPT-34919 Level 4 Est. Patient 10:19:23 CDT [facility] [place] CPT-92397 Level 3 Est. Patient 09:58:58 CDT [facility] [place] CPT-54917 Level 3 Est. Patient 12:37:21 CDT [facility] [place] CPT-90407 Level 3 Est. Patient 18:37:17 CDT [facility] [place] CPT-54924 Level 4 Est. Patient 11:15:54 CDT Nettie Rohith [facility] CPT-45634 Level 3 Est. Patient 16:42:24 CDT [facility] [place] CPT-41559 Level 3 Est. Patient 15:03:36 CDT [facility] [place] CPT-98023 Level 3 Est. Patient 15:03:20 CDT [facility] [place] CPT-43156 Level 3 Est. Patient 12:14:34 CDT Harinder Cr [facility] CPT-81949 Level 3 Est. Patient 13:47:15 CDT Harinder Cr [facility] CPT-07149 Level 3 Est. Patient 14:08:24 CDT Harinder W David [facility] CPT-90197 Level 3 Est. Patient 10:07:15 CDT Harinder Hernandez [facility] CPT-76547 Level 3 Est. Patient 10:06:59 CDT Harinder Hernandez [facility] CPT-18385 Level 3 Est. Patient 15:53:29 CDT Jae Morgan MD [facility] CPT-67425 Level 3 Est. Patient 17:19:04 CDT Harinder Hernandez [facility] CPT-99346 Level 3 Est. Patient 11:13:01 CDT Harinder Hernandez [facility] CPT-20758 Level 3 Est. Patient 09:03:58 CDT Harinder Hernandez [facility] CPT-56918 Level 3 Est. Patient 14:46:45 [employer] Harinder Hernandez [facility] CPT-77585 Level 3 Est. Patient 09:35:49 [employer] Harnider Hernandez [facility] CPT-85282 Level 3 Est. Patient 09:29:37 [employer] Harinder Hernandez [facility] CPT-15497 Level 3 Est. Patient 15:51:07 CDT Harinder Hernandez [facility] CPT-69338 Level 3 Est. Patient 18:13:13 CDT Harinder Hernandez [facility] CPT-34163 Level 3 Est. Patient 10:44:19 CDT Harinder Shaye David [facility] CPT-64836 Level 4 Est. Patient 10:07:19 [employer] [facility] [place] CPT-77036 Level 3 Est. Patient 15:59:32 [employer] Harinder Cr [facility] Procedures Code Procedure Name Date Entry Date Standard Description CPT-54531 Abd compl w upright - XRAY USE ONLY 14:48:09 CDT 02/18 CPT-16683 Port a cath flush 13:46:05 CDT CPT-86236 Hip, complete, 2-3 views - XRAY USE ONLY 10:28:40 CDT CPT-64553 BMP - LAB USE ONLY 16:45:09 [employer] CPT-26809 Port a cath flush 12:00:13 [employer] CPT-TCMM Transitional Care Mgmt-Moderate 11:20:16 [employer] CPT-40514 First Vx - Ix admin for Medicare patients 17:35:15 CDT CPT-02490 Fluzone Preservative Free Intramuscular Suspension 17:35 :15 CDT CPT-02595 Microalbumin - LAB USE ONLY 11:52:05 CDT CPT-TCMM Transitional Care Mgmt-Moderate 11:33:57 CDT CPT-72791 No Charge Offi Visit 14:11:29 CDT CPT-31580 Magnesium - LAB USE ONLY 10:45:44 CDT CPT-93285 Lipid - LAB USE ONLY 10:45:44 CDT CPT-40158 CBC - LAB USE ONLY 10:45:44 CDT CPT-70567 Venipuncture Draw Fee 10:45:43 CDT CPT-18881 Venipuncture Draw Fee 18:21:27 CDT CPT-JTINJ Asp/Joint Injection 18:38:04 CDT CPT-60666 Immunization Each Additional Inj 17:38:04 CDT CPT-25894 Immunization Single Admin 17:38:04 CDT CPT-32683 Prevnar 13 17:38:04 CDT CPT-14476 Fluzone Quadrivalent preservative free (>=3yrs.) 17:38: 04 CDT CPT-35338 No Charge Offi Visit 11:14:03 CDT CPT-72180 Chest 2V Frontal and Lat 14:00:18 CDT CPT-OV Office Visit 16:10:28 CDT CPT-JTINJ Asp/Joint Injection 09:03:57 CDT CPT-Cryo Cryotherapy 09:35:49 [employer] CPT-JTINJ Asp/Joint Injection 09:34:45 [employer] CPT-J2930 Solu Medrol 125 mg (Methyl Prednisolone Sodium Succinate) 20:37:27 CDT CPT-44431 Abx/Therapy Injection 20:37:27 CDT CPT-13515 Port a cath flush 08:15:51 CDT CPT-98412 Port a cath flush 09:54:16 CDT CPT-76194 Port a cath flush 09:38:02 CDT CPT-83245 Port a cath flush 11:00:27 [employer]
--- OUTSIDE RECORDS SUMMARY | 2017-12-29 06:02 | XMS REPORT | Clinical Summary ---
Author Author Admin, KAIN Organization [facility] Address Unknown Phone Unavailable Allergies, [...] positional vertigo Colon cancer screening V76.51 Active [facility] COMMUNITY CASE MANAGER Screening for malignant neoplasms of colon Screening for malignant neoplasm, colon V76.51 Active [facility] COMMUNITY CASE MANAGER Screening for malignant neoplasms of colon Nausea and vomiting ICD-787.01 Inactive Jae Morgan MD Diarrhea ICD-787.91 Inactive Jae Morgan MD Medication List Medication Instructions Start Date Stop Date Generic Name NDC Status Provider Patient Instruction CEFDINIR 300 MG ORAL CAPS take 1 cap po bid x 10 days CEFDINIR 83140662032 Active Tawnya Pardo MA Active AMITRIPTYLINE HCL 25 MG ORAL TABS 1 q hs prn AMITRIPTYLINE HCL 80353156137 Active Nettie Newberry APRN Active LOVASTATIN 40 MG TABS 1 pill by mouth nightly for cholesterol LOVASTATIN 83377111843 No Longer Active Nettie Newberry APRN Active NITROSTAT 0.4 MG SUBL 1 tab under tongueas needed for chest pain ( may take 3 total, 5 min apart, then call 911) NITROGLYCERIN 13636195203 No Longer Active Nettie Newberry APRN Active POTASSIUM CHLORIDE CR 10 MEQ CPCR 1 capsule by mouth daily 02/14 POTASSIUM CHLORIDE 57345839799 No Longer Active Nettie Rohith MAHENDRA Active TESSALON PERLES 100 MG CAP 1 to 2 tablets by mouth 3 times daily as needed for cough BENZONATATE 23594161906 No Longer Active Nettie Newberry APRN Active THEOPHYLLINE ER 200 MG ORAL [id number] Take 1 tab every 12 hours THEOPHYLLINE 18915266639 Active Trixie Martin LPN Active PREDNISONE 20 MG TAB 2 po qd x 5 days PREDNISONE 12473831298 No Longer Active Jae Morgan MD Active AZITHROMYCIN 250 MG TABS 2 po qd x 1 day, then 1 po qd x 4 days AZITHROMYCIN 25597711215 No Longer Active Jae Morgan MD Active PREDNISONE 20 MG TAB 1 tab twice daily for 3 day, then one daily for three days PREDNISONE 68419770620 No Longer Active Jae Morgan MD Active MECLIZINE HCL 25 MG TAB 1 tablet three times daily for 3 days, then 1/2 tab three times daily for 3 days. MECLIZINE HCL 62043722425 Active Harinder Hernandez DO Active SINGULAIR 10 MG TABS 1 pill by mouth every evening for breathing. MONTELUKAST SODIUM 36286320543 Active Harinder Hernandez DO Active TYLENOL 325 MG TAB 3 by mouth q4h as needed ACETAMINOPHEN 89792996107 Active Harinder Hernandez DO Active POTASSIUM CHLORIDE ER 10 MEQ CR-TABS take 1 tab po daily POTASSIUM CHLORIDE 32477555941 No Longer Active Harinder Hernandez DO Active PREDNISONE 20 MG TAB 1 TID x 2 days, then 1 BID x 3 days, then 1 Daily x 3 days, then stop PREDNISONE 30031069308 No Longer Active Jillina Frazell COMMUNITY CASE MANAGER Active LEVAQUIN 500 MG TAB 1 tablet by mouth daily LEVOFLOXACIN 38972474518 No Longer Active Jillina Frazell COMMUNITY CASE MANAGER Active NEURONTIN 300 MG CAP 1 cap by mouth three times daily for restless leg 06/22 GABAPENTIN 25237785170 No Longer Active Harinder eHrnandez DO Active BENZONATATE 100 MG CAPS 1 cap po TID PRN BENZONATATE 83471598003 No Longer Active Harinder Hernandez DO Active MONTELUKAST SODIUM 10 MG TABS 1 tab po in the evening MONTELUKAST SODIUM 52583049721 No Longer Active Harinder Hernandez DO Active MUPIROCIN 2 % OINT apply to affected area BID x 14 days MUPIROCIN 86345264055 No Longer Active Harinder Hernandez DO Active TYLENOL EXTRA STRENGTH 500 MG TABS as needed ACETAMINOPHEN 83889877905 No Longer Active Harinder Hernandez DO Active PREDNISONE 10 MG TABS 1 tab po daily PREDNISONE 54633731388 No Longer Active Harinder Hernandez DO Active PREDNISONE 20 MG TAB 2 tabs daily for 4 days, 1 tab daily for 4 days, 1/2 tab daily for 4 days PREDNISONE 86115189379 No Longer Active Harinder Hernandez DO Active AZITHROMYCIN 250 MG TABS 2 po qd x 1 day, then 1 po qd x 4 days AZITHROMYCIN 55228839840 No Longer Active Harinder Hernandez DO Active PREDNISONE 20 MG TAB 3 tabs today, then 1 tab twice daily for 3 day, then one daily for three days PREDNISONE 96455090599 No Longer Active Harinder Hernandez DO Active NIFEDIAC CC 30 MG [id number] 1 tablet daily for raynaud's syndrome NIFEDIPINE 20171484506 Active Lobito Smith MD Active AMBIEN 10 MG TAB 1/2 tab by mouth at bedtime as needed for sleep ZOLPIDEM TARTRATE 35874182900 Active Johny Dawkins MD Active VENTOLIN HFA 108 (90 BASE) MCG/ACT AERS 2 -4 puffs four times a day PRN 2013 ALBUTEROL SULFATE 29250445416 Active Lboito Smith MD Active CLONAZEPAM 1 MG TABS 1 tablet at bedtime for insomnia and restless legs 09/14 CLONAZEPAM 98440770536 Active Harinder Hernandez DO Active CLONAZEPAM 0.5 MG TABS 1 tab po daily CLONAZEPAM 96819840782 No Longer Active Harinder Hernandez DO Active PREDNISONE 10 MG TAB 1 tablet daily for COPD PREDNISONE 96204769775 Active Harinder Hernandez DO Active PROAIR HFA 108 (90 BASE) MCG/ACT AERS 2 puffs four times a day as needed 2012 ALBUTEROL SULFATE 07502023235 Active Harinder Hernandez DO Active FLOVENT HFA 110 MCG/ACT AERO 2 puffs inhaled b.i.d. FLUTICASONE PROPIONATE HFA 26482536744 Active Harinder Hernandez DO Active EPIPEN 0.3 MG/0.3ML URIEL DIRECTED EPINEPHRINE Active Demetrius JOHNSON Active ACIPHEX 20 MG TBEC 1 tab po daily RABEPRAZOLE SODIUM 80532497858 Active Harinder Hernandez DO Active TOPIRAMATE 25 MG TABS 1 tab po BID TOPIRAMATE 65947601395 Active Lobito Smith MD Active ACEBUTOLOL HCL 200 MG CAPS 1 cap in the morning and 2 caps in the evening ACEBUTOLOL HCL 15919804988 Active Harinder Hernandez Active CLONAZEPAM 0.5 MG TABS 1 tab po daily CLONAZEPAM 0.5 MG TABS 003402 CLONAZEPAM Inactive PREDNISONE 20 MG TAB 3 tabs today, then 1 tab twice daily for 3 day, then one daily for three days PREDNISONE 20 MG TAB 801222 PREDNISONE Inactive PREDNISONE 20 MG TAB 2 tabs daily for 4 days, 1 tab daily for 4 days, 1/2 tab daily for 4 days PREDNISONE 20 MG TAB 765958 PREDNISONE Inactive PREDNISONE 10 MG TABS 1 tab po daily PREDNISONE 10 MG TABS 011899 PREDNISONE Inactive TYLENOL EXTRA STRENGTH 500 MG TABS as needed TYLENOL EXTRA STRENGTH 500 MG TABS 213849 ACETAMINOPHEN Inactive MUPIROCIN 2 % OINT apply to affected area BID x 14 days MUPIROCIN 2 % OINT 811353 MUPIROCIN Inactive MONTELUKAST SODIUM 10 MG TABS 1 tab po in the evening MONTELUKAST SODIUM 10 MG TABS 050418 MONTELUKAST SODIUM Inactive BENZONATATE 100 MG CAPS 1 cap po TID PRN BENZONATATE 100 MG CAPS 126484 BENZONATATE Inactive NEURONTIN 300 MG CAP 1 cap by mouth three times daily for restless leg 06/22 NEURONTIN 300 MG CAP 713380 GABAPENTIN Inactive LEVAQUIN 500 MG TAB 1 tablet by mouth daily LEVAQUIN 500 MG TAB 457539 LEVOFLOXACIN Inactive PREDNISONE 20 MG TAB 1 TID x 2 days, then 1 BID x 3 days, then 1 Daily x 3 days, then stop PREDNISONE 20 MG TAB 604528 PREDNISONE Inactive POTASSIUM CHLORIDE ER 10 MEQ CR-TABS take 1 tab po daily POTASSIUM CHLORIDE ER 10 MEQ CR-TABS POTASSIUM CHLORIDE Inactive PREDNISONE 20 MG TAB 1 tab twice daily for 3 day, then one daily for three days PREDNISONE 20 MG TAB 638007 PREDNISONE Inactive TESSALON PERLES 100 MG CAP 1 to 2 tablets by mouth 3 times daily as needed for cough TESSALON PERLES 100 MG CAP 304374 BENZONATATE Inactive POTASSIUM CHLORIDE CR 10 MEQ [...] nightly for cholesterol LOVASTATIN 40 MG TABS 438994 LOVASTATIN Inactive AZITHROMYCIN 250 MG TABS 2 po qd x 1 day, then 1 po qd x 4 days AZITHROMYCIN 250 MG TABS 0495622 AZITHROMYCIN Inactive AZITHROMYCIN 250 MG TABS 2 po qd x 1 day, then 1 po qd x 4 days AZITHROMYCIN 250 MG TABS 7152467 AZITHROMYCIN Inactive PREDNISONE 20 MG TAB 2 po qd x 5 days PREDNISONE 20 MG TAB 313021 PREDNISONE Inactive Vital Signs Date Name Value [...] AUTO - Chemistry sodium, serum 141 mmol/L 652-936 0289/03/02 potassium, serum 3.4 mmol/L 3.5-5.2 chloride, serum [...] ... - Chemistry sodium, serum 139 mmol/L 608-034 8654/11/24 potassium, serum 4.0 mmol/L 3.5-5.2 chloride, serum [...] 1.93 m[iU]/mL 0.36-3.74 cholesterol, serum 248 mg/dL 104-005 4148/11/24 triglyceride, serum, fasting 104 mg/dL 30-200 HDL [...] 10.0-20.0 Encounters Code Encounter Date Provider Facility CPT-08481 Level 3 Est. Patient 10:07:15 CDT Harinder Hernandez [facility] CPT-50506 Level 3 Est. Patient 10:06:59 CDT Harinder Cr [facility] CPT-81617 Level 3 Est. Patient 15:53:29 CDT Jae Morgan MD [facility] CPT-05942 Level 3 Est. Patient 17:19:04 CDT Harinder Hernandez [facility] CPT-80444 Level 3 Est. Patient 11:13:01 CDT Harinder Hernandez [facility] CPT-02570 Level 3 Est. Patient 09:03:58 CDT Harinder Hernandez [facility] CPT-91908 Level 3 Est. Patient 14:46:45 METALLURGICAL INSPECTOR Harinder Hernandez [facility] CPT-95299 Level 3 Est. Patient 09:35:49 METALLURGICAL INSPECTOR Harinder Hernandez [facility] CPT-98031 Level 3 Est. Patient 09:29:37 METALLURGICAL INSPECTOR Harinder Hernandez [facility] CPT-81467 Level 3 Est. Patient 15:51:07 CDT Harinder Hernandez [facility] CPT-49048 Level 3 Est. Patient 18:13:13 CDT Harinder Hernandez [facility] CPT-21869 Level 3 Est. Patient 10:44:19 CDT Harinder Hernandez [facility] CPT-83921 Level 4 Est. Patient 10:07:19 METALLURGICAL INSPECTOR Harinder Hernandez [facility] CPT-29592 Level 3 Est. Patient 15:59:32 METALLURGICAL INSPECTOR Harinder Cr [facility] Procedures Code Procedure Name Date Entry Date Standard Description CPT-OV Office Visit 16:10:28 CDT CPT-JTINJ Asp/Joint Injection 09:03:57 CDT CPT-Cryo Cryotherapy 09:35:49 METALLURGICAL INSPECTOR CPT-JTINJ Asp/Joint Injection 09:34:45 METALLURGICAL INSPECTOR CPT-J2930 Solu Medrol 125 mg (Methyl Prednisolone Sodium Succinate) 20:37:27 CDT CPT-62866 Abx/Therapy Injection 20:37:27 CDT CPT-94383 Port a cath flush 08:15:51 CDT CPT-83756 Port a cath flush 09:54:16 CDT CPT-67992 Port a cath flush 09:38:02 CDT CPT-02020 Port a cath flush 11:00:27 METALLURGICAL INSPECTOR
--- OUTSIDE RECORDS SUMMARY | 2017-12-29 06:03 | XMS REPORT | Clinical Summary ---
Author Author Admin, QIE Organization [facility] Address Unknown Phone Unavailable Allergies, Adverse [...] Greater trochanteric bursitis, left 726.5 Active Harinder Hernnadez DO Enthesopathy of hip region Diarrhea, acute [...] neb q 4hrs PRN Wheezing ALBUTEROL SULFATE 66420040033 Active Harinder Hernandez DO Active FLOVENT HFA 110 MCG/ACT AERO 2 puffs inhaled b.i.d. FLUTICASONE PROPIONATE HFA 34384293493 Active Harinder Hernandez DO Active POTASSIUM CHLORIDE CR 10 MEQ CPCR 1 capsule by mouth daily POTASSIUM CHLORIDE 71999131246 Active Harinder Hernandez DO Active EPIPEN 2-BRUNA 0.3 MG/0.3ML INJ SOAJ 1 INJ NEEDED EPINEPHRINE 91084850489 Active Tawnya Pardo MA Active PREDNISONE 20 MG TAB 1 tab twice daily for 3 day, then one daily for three days PREDNISONE 02504031625 No Longer Active Harinder Hernandez DO Active PREDNISONE 20 MG TAB 1 tablet twice daily for 2 days, then 1 tablet once daily for 2 days PREDNISONE 26220326496 No Longer Active Harinder Hernandez DO Active ASMANEX 120 METERED DOSES 220 MCG/INH INH AEPB 2 puffs orally twice daily MOMETASONE FUROATE 66794609929 Active Jeri Sosa RPT,RMA Active NIFEDIPINE ER 30 MG ORAL [id number] 1 daily NIFEDIPINE 35588347610 Active Harinder Hernandez DO Active TOPIRAMATE 25 MG TABS 1 tab po BID TOPIRAMATE 25798376635 No Longer Active Nettie Newberry APRN Active AMLODIPINE BESYLATE 5 MG ORAL TABS Take 1 tab po daily AMLODIPINE BESYLATE 24452651657 No Longer Active Nettie Newberry APRN Active MECLIZINE HCL 25 MG TAB 1 tablet three times daily for 3 days, then 1/2 tab three times daily for 3 days. MECLIZINE HCL 72649308357 No Longer Active Nettie Newberry APRN Active AMITRIPTYLINE HCL 25 MG ORAL TABS 1 q hs prn AMITRIPTYLINE HCL 20129071115 No Longer Active Nettie Newberry APRN Active DILAUDID 2 MG ORAL TABS Take 1/2 tab po every 4 hours as needed for pain 2014 HYDROMORPHONE HCL 37041425686 No Longer Active Nettie Newberry APRN Active CLOPIDOGREL BISULFATE 75 MG ORAL TABS 1 tab by mouth once daily CLOPIDOGREL BISULFATE 95391454284 Active Tawnya Pardo MA Active ATORVASTATIN CALCIUM 10 MG ORAL TABS 1 at bedtime ATORVASTATIN CALCIUM 83108317423 Active Tawnya aPrdo MA Active LOVASTATIN 40 MG ORAL TABS Take 1 tab po every hs LOVASTATIN 97442831176 No Longer Active Harinder Hernandez DO Active PREDNISONE 20 MG TAB 2 tabs daily for 4 days, 1 tab daily for 4 days, 1/2 tab daily for 4 days PREDNISONE 74205188116 No Longer Active Harinder Hernandez DO Active LEVAQUIN 500 MG ORAL TABS Take 1 tab po daily x 8 days LEVOFLOXACIN 43194860605 No Longer Active Harinder Hernandez DO Active VENTOLIN HFA 108 (90 BASE) MCG/ACT AERS 2 -4 puffs four times a day PRN 2013 ALBUTEROL SULFATE 27971360218 No Longer Active Jeri Sosa RPT,RMA Active ACEBUTOLOL HCL 200 MG CAPS 1 cap in the morning and 2 caps in the evening ACEBUTOLOL HCL 88130379866 No Longer Active Harinder Hernandez DO Active CEFDINIR 300 MG ORAL CAPS take 1 cap po bid x 10 days CEFDINIR 77224153489 No Longer Active Harinder Hernandez DO Active LOVASTATIN 40 MG TABS 1 pill by mouth nightly for cholesterol LOVASTATIN 02519696620 No Longer Active Nettie Newberry APRN Active NITROSTAT 0.4 MG SUBL 1 tab under tongueas needed for chest pain ( may take 3 total, 5 min apart, then call 911) NITROGLYCERIN 83106612158 No Longer Active Nettie Newberry MAHENDRA Active POTASSIUM CHLORIDE CR 10 MEQ CPCR 1 capsule by mouth daily 02/14 POTASSIUM CHLORIDE 80528162223 No Longer Active Nettie Newberry MAHENDRA Active TESSALON PERLES 100 MG CAP 1 to 2 tablets by mouth 3 times daily as needed for cough BENZONATATE 56932885374 No Longer Active Nettie Newberry MAHENDRA Active THEOPHYLLINE ER 200 MG ORAL [id number] Take 1 tab every 12 hours THEOPHYLLINE 53196601509 Active Tawnya Pardo MA Active PREDNISONE 20 MG TAB 2 po qd x 5 days PREDNISONE 92660584916 No Longer Active Jae Morgan MD Active AZITHROMYCIN 250 MG TABS 2 po qd x 1 day, then 1 po qd x 4 days AZITHROMYCIN 89133371547 No Longer Active Jae Morgan MD Active PREDNISONE 20 MG TAB 1 tab twice daily for 3 day, then one daily for three days PREDNISONE 46271876572 No Longer Active Jae Morgan MD Active SINGULAIR 10 MG TABS 1 pill by mouth every evening for breathing. MONTELUKAST SODIUM 15654801515 Active Tawnya Pardo MA Active TYLENOL 325 MG TAB 3 by mouth q4h as needed ACETAMINOPHEN 80231606982 Active Harinder Hernandez DO Active POTASSIUM CHLORIDE ER 10 MEQ CR-TABS take 1 tab po daily POTASSIUM CHLORIDE 38939947489 No Longer Active Harinder Hernandez DO Active PREDNISONE 20 MG TAB 1 TID x 2 days, then 1 BID x 3 days, then 1 Daily x 3 days, then stop PREDNISONE 63595596341 No Longer Active Jillkvng Montemayor APRN Active LEVAQUIN 500 MG TAB 1 tablet by mouth daily LEVOFLOXACIN 60002539893 No Longer Active Jillina Frazell [employer]ATOR Active NEURONTIN 300 MG CAP 1 cap by mouth three times daily for restless leg 06/22 GABAPENTIN 24163648952 No Longer Active Harinder Hernandez DO Active BENZONATATE 100 MG CAPS 1 cap po TID PRN BENZONATATE 83950241326 No Longer Active Harinder Hernandez DO Active MONTELUKAST SODIUM 10 MG TABS 1 tab po in the evening MONTELUKAST SODIUM 77492725144 No Longer Active Harinder Hernandez DO Active MUPIROCIN 2 % OINT apply to affected area BID x 14 days MUPIROCIN 04645064008 No Longer Active Harinder Hernandez DO Active TYLENOL EXTRA STRENGTH 500 MG TABS as needed ACETAMINOPHEN 92391822310 No Longer Active Harinder Hernandez DO Active PREDNISONE 10 MG TABS 1 tab po daily PREDNISONE 48172097757 No Longer Active Harinder Hernandez DO Active PREDNISONE 20 MG TAB 2 tabs daily for 4 days, 1 tab daily for 4 days, 1/2 tab daily for 4 days PREDNISONE 22027669911 No Longer Active Harinder Hernandez DO Active AZITHROMYCIN 250 MG TABS 2 po qd x 1 day, then 1 po qd x 4 days AZITHROMYCIN 65773958622 No Longer Active Harinder Hernandez DO Active PREDNISONE 20 MG TAB 3 tabs today, then 1 tab twice daily for 3 day, then one daily for three days PREDNISONE 00570168203 No Longer Active Harinder Hernandez DO Active NIFEDIAC CC 30 MG [id number] 1 tablet daily for raynaud's syndrome NIFEDIPINE 66995040567 No Longer Active Tawnya Pardo MA Active AMBIEN 10 MG TAB 1/2 tab by mouth at bedtime as needed for sleep ZOLPIDEM TARTRATE 23180277380 Active Harinder Hernandez DO Active CLONAZEPAM 1 MG TABS 1 tablet at bedtime for insomnia and restless legs 09/14 CLONAZEPAM 53881871961 Active Harinder Hernandez DO Active CLONAZEPAM 0.5 MG TABS 1 tab po daily CLONAZEPAM 75288517454 No Longer Active Harinder Hernandez DO Active PREDNISONE 10 MG TAB 1 tablet daily for COPD PREDNISONE 90321061371 Active Tawnya Pardo MA Active PROAIR HFA 108 (90 BASE) MCG/ACT AERS 2 puffs four times a day as needed 2012 ALBUTEROL SULFATE 10741914426 Active Tawnya Pardo MA Active FLOVENT HFA 110 MCG/ACT AERO 2 puffs inhaled b.i.d. FLUTICASONE PROPIONATE HFA 21449484717 Active Tawnya Pardo MA Active ACIPHEX 20 MG TBEC 1 tab po daily RABEPRAZOLE SODIUM 38540635944 Active Kaylah Newberry Active CLONAZEPAM 0.5 MG TABS 1 tab po daily CLONAZEPAM 0.5 MG TABS 212116 CLONAZEPAM Inactive PREDNISONE 20 MG TAB 3 tabs today, then 1 tab twice daily for 3 day, then one daily for three days PREDNISONE 20 MG TAB 971612 PREDNISONE Inactive PREDNISONE 20 MG TAB 2 tabs daily for 4 days, 1 tab daily for 4 days, 1/2 tab daily for 4 days PREDNISONE 20 MG TAB 457014 PREDNISONE Inactive PREDNISONE 10 MG TABS 1 tab po daily PREDNISONE 10 MG TABS 798623 PREDNISONE Inactive TYLENOL EXTRA STRENGTH 500 MG TABS as needed TYLENOL EXTRA STRENGTH 500 MG TABS 545865 ACETAMINOPHEN Inactive MUPIROCIN 2 % OINT apply to affected area BID x 14 days MUPIROCIN 2 % OINT 101770 MUPIROCIN Inactive MONTELUKAST SODIUM 10 MG TABS 1 tab po in the evening MONTELUKAST SODIUM 10 MG TABS 20010818 MONTELUKAST SODIUM Inactive BENZONATATE 100 MG CAPS 1 cap po TID PRN BENZONATATE 100 MG CAPS 032091 BENZONATATE Inactive NEURONTIN 300 MG CAP 1 cap by mouth three times daily for restless leg 06/22 NEURONTIN 300 MG CAP 363478 GABAPENTIN Inactive LEVAQUIN 500 MG TAB 1 tablet by mouth daily LEVAQUIN 500 MG TAB 911500 LEVOFLOXACIN Inactive PREDNISONE 20 MG TAB 1 TID x 2 days, then 1 BID x 3 days, then 1 Daily x 3 days, then stop PREDNISONE 20 MG TAB 851611 PREDNISONE Inactive POTASSIUM CHLORIDE ER 10 MEQ CR-TABS take 1 tab po daily POTASSIUM CHLORIDE ER 10 MEQ CR-TABS POTASSIUM CHLORIDE Inactive PREDNISONE 20 MG TAB 1 tab twice daily for 3 day, then one daily for three days PREDNISONE 20 MG TAB 097997 PREDNISONE Inactive TESSALON PERLES 100 MG CAP 1 to 2 tablets by mouth 3 times daily as needed for cough TESSALON PERLES 100 MG CAP 600965 BENZONATATE Inactive POTASSIUM CHLORIDE CR 10 MEQ CPCR 1 capsule by mouth daily 02/14 POTASSIUM CHLORIDE CR 10 MEQ CPCR POTASSIUM CHLORIDE Inactive NITROSTAT 0.4 MG SUBL 1 tab under tongueas needed for chest pain ( may take 3 total, 5 min apart, then call 911) NITROSTAT 0.4 MG SUBL 481911 NITROGLYCERIN Inactive LOVASTATIN 40 MG TABS 1 pill by mouth nightly for cholesterol LOVASTATIN 40 MG TABS 838272 LOVASTATIN Inactive CEFDINIR 300 MG ORAL CAPS take 1 cap po bid x 10 days CEFDINIR 300 MG ORAL CAPS 693459 CEFDINIR Inactive ACEBUTOLOL HCL 200 MG CAPS 1 cap in the morning and 2 caps in the evening ACEBUTOLOL HCL 200 MG CAPS 753822 ACEBUTOLOL HCL Inactive VENTOLIN HFA 108 (90 BASE) MCG/ACT AERS 2 -4 puffs four times a day PRN 2013 VENTOLIN HFA 108 (90 BASE) MCG/ACT AERS ALBUTEROL SULFATE Inactive LEVAQUIN 500 MG ORAL TABS Take 1 tab po daily x 8 days LEVAQUIN 500 MG ORAL TABS 258640 LEVOFLOXACIN Inactive PREDNISONE 20 MG TAB 2 tabs daily for 4 days, 1 tab daily for 4 days, 1/2 tab daily for 4 days PREDNISONE 20 MG TAB 524332 PREDNISONE Inactive LOVASTATIN 40 MG ORAL TABS Take 1 tab po every hs LOVASTATIN 40 MG ORAL TABS 752342 LOVASTATIN Inactive DILAUDID 2 MG ORAL TABS Take 1/2 tab po every 4 hours as needed for pain 2014 DILAUDID 2 MG ORAL TABS 277177 HYDROMORPHONE HCL Inactive AMITRIPTYLINE HCL 25 MG ORAL TABS 1 q hs prn AMITRIPTYLINE HCL 25 MG ORAL TABS 359093 AMITRIPTYLINE HCL Inactive MECLIZINE HCL 25 MG TAB 1 tablet three times daily for 3 days, then 1/2 tab three times daily for 3 days. MECLIZINE HCL 25 MG TAB 334228 MECLIZINE HCL Inactive AMLODIPINE BESYLATE 5 MG ORAL TABS Take 1 tab po daily AMLODIPINE BESYLATE 5 MG ORAL TABS 397156 AMLODIPINE BESYLATE Inactive TOPIRAMATE 25 MG TABS 1 tab po BID TOPIRAMATE 25 MG TABS 730475 TOPIRAMATE Inactive PREDNISONE 20 MG TAB 1 tablet twice daily for 2 days, then 1 tablet once daily for 2 days PREDNISONE 20 MG TAB 842245 PREDNISONE Inactive PREDNISONE 20 MG TAB 1 tab twice daily for 3 day, then one daily for three days PREDNISONE 20 MG TAB 402127 PREDNISONE Inactive AZITHROMYCIN 250 MG TABS 2 po qd x 1 day, then 1 po qd x 4 days AZITHROMYCIN 250 MG TABS 9142959 AZITHROMYCIN Inactive AZITHROMYCIN 250 MG TABS 2 po qd x 1 day, then 1 po qd x 4 days AZITHROMYCIN 250 MG TABS 7459427 AZITHROMYCIN Inactive PREDNISONE 20 MG TAB 2 po qd x 5 days PREDNISONE 20 MG TAB 967421 PREDNISONE Inactive Vital Signs Date Name Value [...] Panel - Chemistry sodium, serum 137 mmol/L 581-056 9734/01/03 potassium, serum 3.4 mmol/L 3.5-5.2 chloride, serum [...] Magnesium - Chemistry cholesterol, serum 180 mg/dL 056-488 6875/08/08 triglyceride, serum, fasting 92 mg/dL 30-200 HDL cholesterol, serum 66 mg/dL 32-96 LDL cholesterol, serum 96 mg/dL 0-130 sodium, serum 142 mmol/L 725-905 1545/08/08 carbon dioxide, venous blood 27.4 mmol/L 21.0-32.0 [...] 10.0-20.0 Encounters Code Encounter Date Provider Facility CPT-91438 Level 3 Est. Patient 09:58:58 CDT Harinder Cr [facility] CPT-53225 Level 3 Est. Patient 12:37:21 CDT Harinder Cr [facility] CPT-57052 Level 3 Est. Patient 18:37:17 CDT Harinder Shaye [facility] CPT-41024 Level 4 Est. Patient 11:15:54 CDT Nettie Newberry [facility] CPT-83396 Level 3 Est. Patient 16:42:24 CDT Harinder Cr [facility] CPT-12657 Level 3 Est. Patient 15:03:36 CDT Harinder Cr [facility] CPT-43428 Level 3 Est. Patient 15:03:20 CDT Harinder Cr [facility] CPT-80544 Level 3 Est. Patient 12:14:34 CDT Harinder Cr [facility] CPT-64084 Level 3 Est. Patient 13:47:15 CDT Harinder Cr [facility] CPT-49464 Level 3 Est. Patient 14:08:24 CDT Harinder Hernandez [facility] CPT-62288 Level 3 Est. Patient 10:07:15 CDT Harinder Hernandez [facility] CPT-54845 Level 3 Est. Patient 10:06:59 CDT Harinder Hernandez [facility] CPT-89346 Level 3 Est. Patient 15:53:29 CDT Jae Morgan MD [facility] CPT-39125 Level 3 Est. Patient 17:19:04 CDT Harinder Hernandez [facility] CPT-62834 Level 3 Est. Patient 11:13:01 CDT Harinder Hernandez [facility] CPT-61503 Level 3 Est. Patient 09:03:58 CDT Harinder Hernandez [facility] CPT-40682 Level 3 Est. Patient 14:46:45 [employer] Harinder Hernandez [facility] CPT-32308 Level 3 Est. Patient 09:35:49 [employer] Harinder Hernandez [facility] CPT-16442 Level 3 Est. Patient 09:29:37 [employer] Harinder Hernandez [facility] CPT-60399 Level 3 Est. Patient 15:51:07 CDT Harinder Hernandez [facility] CPT-95035 Level 3 Est. Patient 18:13:13 CDT Harinder Hernandez [facility] CPT-61530 Level 3 Est. Patient 10:44:19 CDT Harinder Hernandez [facility] CPT-50816 Level 4 Est. Patient 10:07:19 [employer] Harinder Hernandez [facility] CPT-45297 Level 3 Est. Patient 15:59:32 [employer] Harinder Cr [facility] Procedures Code Procedure Name Date Entry Date Standard Description CPT-70321 BMP - LAB USE ONLY 16:45:09 [employer] CPT-88792 Port a cath flush 12:00:13 [employer] CPT-TCMM Transitional Care Mgmt-Moderate 11:20:16 [employer] CPT-09288 First Vx - Ix admin for Medicare patients 17:35:15 CDT CPT-38832 Fluzone Preservative Free Intramuscular Suspension 17:35 :15 CDT CPT-27960 Microalbumin - LAB USE ONLY 11:52:05 CDT CPT-TCMM Transitional Care Mgmt-Moderate 11:33:57 CDT CPT-96925 No Charge Offi Visit 14:11:29 CDT CPT-29345 Magnesium - LAB USE ONLY 10:45:44 CDT CPT-80301 Lipid - LAB USE ONLY 10:45:44 CDT CPT-31781 CBC - LAB USE ONLY 10:45:44 CDT CPT-69314 Venipuncture Draw Fee 10:45:43 CDT CPT-51792 Venipuncture Draw Fee 18:21:27 CDT CPT-JTINJ Asp/Joint Injection 18:38:04 CDT CPT-40052 Immunization Each Additional Inj 17:38:04 CDT CPT-67233 Immunization Single Admin 17:38:04 CDT CPT-62863 Prevnar 13 17:38:04 CDT CPT-00467 Fluzone Quadrivalent preservative free (>=3yrs.) 17:38: 04 CDT CPT-35993 No Charge Offi Visit 11:14:03 CDT CPT-51787 Chest 2V Frontal and Lat 14:00:18 CDT CPT-OV Office Visit 16:10:28 CDT CPT-JTINJ Asp/Joint Injection 09:03:57 CDT CPT-Cryo Cryotherapy 09:35:49 [employer] CPT-JTINJ Asp/Joint Injection 09:34:45 [employer] CPT-J2930 Solu Medrol 125 mg (Methyl Prednisolone Sodium Succinate) 20:37:27 CDT CPT-91213 Abx/Therapy Injection 20:37:27 CDT CPT-77038 Port a cath flush 08:15:51 CDT CPT-45603 Port a cath flush 09:54:16 CDT CPT-17793 Port a cath flush 09:38:02 CDT CPT-13101 Port a cath flush 11:00:27 [employer]
--- OUTSIDE RECORDS SUMMARY | 2017-12-29 06:05 | XMS REPORT | Clinical Summary ---
[...] LPN Gastroenteritis, viral, acute ICD-008.8 Inactive Meenu Aeljo LPN Medication List Medication Instructions Start Date Stop Date Generic Name NDC Status Provider Patient Instruction SUPER CALCIUM 600 + D3 TABLET CALCIUM CARBONATE-VITAMIN D TABS 63603790810 Active Meenu Alejo LPN Active SPIRONOLACTONE 25 MG ORAL TABLET 1 tablet by mouth daily SPIRONOLACTONE 93321534432 No Longer Active Jeri Nieto Active PREDNISONE 20 MG ORAL TABLET 2 tablets by mouth today, then 1 tablet by mouth days 2-3 PREDNISONE 90585194234 No Longer Active Jeri Nieto Active NITROSTAT 0.4 MG SUBLINGUAL TABLET SUBLINGUAL 1 tab SL q5min PRN chest pain NITROGLYCERIN 20253617390 Active Meenu Alejo LPN Active THEOPHYLLINE ER 300 MG ORAL TABLET EXTENDED RELEASE 12 HOUR 1 po BID THEOPHYLLINE 47027397187 Active Kortney Mccain Active POTASSIUM CHLORIDE ER 20 MEQ ORAL TABLET EXTENDED RELEASE 1 po q day POTASSIUM CHLORIDE 57460359769 Active Kortney Mccain Active POTASSIUM CHLORIDE 20 MEQ ORAL PACKET 1 tab po q day POTASSIUM CHLORIDE 92213709846 No Longer Active Kortney Mccain Active POTASSIUM CHLORIDE ER 10 MEQ ORAL CAPSULE EXTENDED RELEASE 1 capsule BID 2016 POTASSIUM CHLORIDE 60182413433 No Longer Active Kortney Mccain Active LASIX 20 MG ORAL TABLET 1 tablet by mouth every morning FUROSEMIDE 75538964612 No Longer Active Kortney Mccain Active FLUOXETINE HCL 10 MG ORAL CAPSULE 1 po qd for depression/anxiety FLUOXETINE HCL 17709433343 Active Meenu Alejo LPN Active VOLTAREN 1 % TRANSDERMAL GEL apply q 6-8 hour to left arm as needed for pain DICLOFENAC SODIUM 39411857818 Active Kortney Mccain Active ALBUTEROL SULFATE (2.5 MG/3ML) 0.083% INHALATION NEBULIZATION SOLUTION 1 vial neb q 4hrs for severe asthma. 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 NIFEDIPINE 74353322169 Active Kortney Mccain Active AMLODIPINE BESYLATE 5 MG ORAL TABLET 1 tablet by mouth daily 2016 AMLODIPINE BESYLATE 72741128962 No Longer Active Harinder Hernandez DO Active TOPAMAX 25 MG ORAL TABLET 1 tab po BID TOPIRAMATE 32556689467 Active Kortney Mccain Active FLUTICASONE PROPIONATE 50 MCG/ACT NASAL SUSPENSION 2 sprays per nostril daily PRN Allergies FLUTICASONE PROPIONATE 72362965820 Active Meenu Alejo LPN Active NIFEDIPINE ER 30 MG ORAL TABLET EXTENDED RELEASE 24 HOUR 1 daily NIFEDIPINE 00217160930 No Longer Active Harinder Hernandez DO Active FLOVENT HFA 110 MCG/ACT INHALATION AEROSOL 2 puffs inhaled b.i.d. FLUTICASONE PROPIONATE HFA 45169251695 Active Harinder Hernandez DO Active EPIPEN 2-BRUNA 0.3 MG/0.3ML INJECTION SOLUTION AUTO-INJECTOR 1 INJ NEEDED EPINEPHRINE 88981595749 Active Meenu Alejo LPN Active PREDNISONE 20 MG ORAL TABLET 1 tab twice daily for 3 day, then one daily for three days PREDNISONE 61760468554 No Longer Active Harinder Hernandez DO Active PREDNISONE 20 MG ORAL TABLET 1 tablet twice daily for 2 days, then 1 tablet once daily for 2 days PREDNISONE 34789695650 No Longer Active Harinder Hernandez DO Active ASMANEX 120 METERED DOSES 220 MCG/INH INHALATION AEROSOL POWDER BREATH ACTIVATED 2 puffs orally twice daily MOMETASONE FUROATE 68771546160 Active Jeri Sosa LPN Active TOPIRAMATE 25 MG ORAL TABLET 1 tab po BID TOPIRAMATE 84166461971 No Longer Active Nettie Newberry APRN Active AMLODIPINE BESYLATE 5 MG ORAL TABLET Take 1 tab po daily AMLODIPINE BESYLATE 08946147345 No Longer Active Nettie Newberry APRN Active MECLIZINE HCL 25 MG ORAL TABLET 1 tablet three times daily for 3 days, then 1/ 2 tab three times daily for 3 days. MECLIZINE HCL 39635046680 No Longer Active Nettie Newberry APRN Active AMITRIPTYLINE HCL 25 MG ORAL TABLET 1 q hs prn AMITRIPTYLINE HCL 84483070534 No Longer Active Nettie Newberry APRN Active DILAUDID 2 MG ORAL TABLET Take 1/2 tab po every 4 hours as needed for pain HYDROMORPHONE HCL 47849509936 No Longer Active Nettie Newberry APRN Active CLOPIDOGREL BISULFATE 75 MG ORAL TABLET 1 tab by mouth once daily CLOPIDOGREL BISULFATE 69623203115 Active Meenu Alejo LPN Active ATORVASTATIN CALCIUM 10 MG ORAL TABLET 1 at bedtime ATORVASTATIN CALCIUM 48979799459 Active Kortney Mccain Active LOVASTATIN 40 MG ORAL TABLET Take 1 tab po every hs LOVASTATIN 95536741273 No Longer Active Harinder Hernandez DO Active PREDNISONE 20 MG ORAL TABLET 2 tabs daily for 4 days, 1 tab daily for 4 days, 1/2 tab daily for 4 days PREDNISONE 96827138707 No Longer Active Harinder Hernandez DO Active LEVAQUIN 500 MG ORAL TABLET Take 1 tab po daily x 8 days LEVOFLOXACIN 16853718769 No Longer Active Harinder Hernandez DO Active VENTOLIN HFA 108 (90 Base) MCG/ACT INHALATION AEROSOL SOLUTION 2 -4 puffs four times a day PRN ALBUTEROL SULFATE 93901091035 No Longer Active Jeri Sosa LPN Active ACEBUTOLOL HCL 200 MG ORAL CAPSULE 1 cap in the morning and 2 caps in the evening ACEBUTOLOL HCL 51656913180 No Longer Active Harinder Hernandez DO Active CEFDINIR 300 MG ORAL CAPSULE take 1 cap po bid x 10 days CEFDINIR 22530694812 No Longer Active Harinder Hernandez DO Active LOVASTATIN 40 MG ORAL TABLET 1 pill by mouth nightly for cholesterol LOVASTATIN 02777991675 No Longer Active Nettie Newberry APRN Active NITROSTAT 0.4 MG SUBLINGUAL TABLET SUBLINGUAL 1 tab under tongueas needed for chest pain ( may take 3 total, 5 min apart, then call 911) NITROGLYCERIN 25558657993 No Longer Active Nettie Newberry APRN Active POTASSIUM CHLORIDE ER 10 MEQ ORAL CAPSULE EXTENDED RELEASE 1 capsule by mouth daily POTASSIUM CHLORIDE 79763808227 No Longer Active Nettie Newberry APRN Active TESSALON PERLES 100 MG ORAL CAPSULE 1 to 2 tablets by mouth 3 times daily as needed for cough BENZONATATE 49126308643 No Longer Active Nettie Newberry APRN Active PREDNISONE 20 MG ORAL TABLET 2 po qd x 5 days PREDNISONE 62192331557 No Longer Active Jae Morgan MD Active AZITHROMYCIN 250 MG ORAL TABLET 2 po qd x 1 day, then 1 po qd x 4 days 12/30 AZITHROMYCIN 37079560231 No Longer Active Jae Morgan MD Active PREDNISONE 20 MG ORAL TABLET 1 tab twice daily for 3 day, then one daily for three days PREDNISONE 22674229575 No Longer Active Jae Morgan MD Active SINGULAIR 10 MG ORAL TABLET 1 pill by mouth every evening for breathing. 2014 MONTELUKAST SODIUM 01761761713 Active Meenu Alejo LPN Active TYLENOL 325 MG ORAL TABLET 3 by mouth q4h as needed ACETAMINOPHEN 31105709964 Active Harinder Hernandez DO Active POTASSIUM CHLORIDE ER 10 MEQ ORAL TABLET EXTENDED RELEASE take 1 tab po daily POTASSIUM CHLORIDE 90502747146 No Longer Active Harinder Hernandez DO Active PREDNISONE 20 MG ORAL TABLET 1 TID x 2 days, then 1 BID x 3 days, then 1 Daily x 3 days, then stop PREDNISONE 15127761818 No Longer Active Jillina Fradankl MAHENDRA Active LEVAQUIN 500 MG ORAL TABLET 1 tablet by mouth daily LEVOFLOXACIN 43527791525 No Longer Active Jillina Frazell [employer] Active NEURONTIN 300 MG ORAL CAPSULE 1 cap by mouth three times daily for restless leg GABAPENTIN 79660035661 No Longer Active Harinder Hernandez DO Active BENZONATATE 100 MG ORAL CAPSULE 1 cap po TID PRN BENZONATATE 96236320869 No Longer Active Harinder Hernandez DO Active MONTELUKAST SODIUM 10 MG ORAL TABLET 1 tab po in the evening 2014 MONTELUKAST SODIUM 78203957274 No Longer Active Harinder Hernandez DO Active MUPIROCIN 2 % EXTERNAL OINTMENT apply to affected area BID x 14 days MUPIROCIN 78289745362 No Longer Active Harinder Hernandez DO Active TYLENOL EXTRA STRENGTH 500 MG ORAL TABLET as needed ACETAMINOPHEN 96670055901 No Longer Active Harinder Hernandez DO Active PREDNISONE 10 MG ORAL TABLET 1 tab po daily PREDNISONE 71222221500 No Longer Active Harinder Hernandez DO Active PREDNISONE 20 MG ORAL TABLET 2 tabs daily for 4 days, 1 tab daily for 4 days, 1/2 tab daily for 4 days PREDNISONE 46988551734 No Longer Active Harinder Hernandez DO Active AZITHROMYCIN 250 MG ORAL TABLET 2 po qd x 1 day, then 1 po qd x 4 days 04/06 AZITHROMYCIN 93159399297 No Longer Active Harinder Hernandez DO Active PREDNISONE 20 MG ORAL TABLET 3 tabs today, then 1 tab twice daily for 3 day, then one daily for three days PREDNISONE 08044259876 No Longer Active Harinder Hernandez DO Active NIFEDIAC CC 30 MG ORAL TABLET EXTENDED RELEASE 24 HOUR 1 tablet daily for raynaud's syndrome NIFEDIPINE 98463621721 No Longer Active Tawnya Pardo MA Active AMBIEN 10 MG ORAL TABLET 1/2 tab by mouth at bedtime as needed for sleep 2013 ZOLPIDEM TARTRATE 32365901158 Active Meenu Alejo LPN Active CLONAZEPAM 1 MG ORAL TABLET 1 tablet at bedtime for insomnia and restless legs CLONAZEPAM 89952257879 Active Harinder Hernandez DO Active CLONAZEPAM 0.5 MG ORAL TABLET 1 tab po daily CLONAZEPAM 33654318452 No Longer Active Harinder Hernandez DO Active PREDNISONE 10 MG ORAL TABLET 1 tablet daily for COPD PREDNISONE 20741243974 Active Kortney Mccain Active PROAIR HFA 108 (90 Base) MCG/ACT INHALATION AEROSOL SOLUTION 2 puffs four times a day as needed ALBUTEROL SULFATE 81476392456 Active Harinder Hernandez DO Active FLOVENT HFA 110 MCG/ACT INHALATION AEROSOL 2 puffs inhaled b.i.d. FLUTICASONE PROPIONATE HFA 36482151829 Active Kortney Mccain Active ACIPHEX 20 MG ORAL TABLET DELAYED RELEASE 1 tab po daily RABEPRAZOLE SODIUM 88135755402 Active Meenu Alejo LPN Active CLONAZEPAM 0.5 MG ORAL TABLET 1 tab po daily CLONAZEPAM 0.5 MG ORAL TABLET 070650 CLONAZEPAM Inactive PREDNISONE 20 MG ORAL TABLET 3 tabs today, then 1 tab twice daily for 3 day, then one daily for three days PREDNISONE 20 MG ORAL TABLET 978218 PREDNISONE Inactive PREDNISONE 20 MG ORAL TABLET 2 tabs daily for 4 days, 1 tab daily for 4 days, 1/2 tab daily for 4 days PREDNISONE 20 MG ORAL TABLET 125337 PREDNISONE Inactive PREDNISONE 10 MG ORAL TABLET 1 tab po daily PREDNISONE 10 MG ORAL TABLET 372225 PREDNISONE Inactive TYLENOL EXTRA STRENGTH 500 MG ORAL TABLET as needed TYLENOL EXTRA STRENGTH 500 MG ORAL TABLET 388577 ACETAMINOPHEN Inactive MUPIROCIN 2 % EXTERNAL OINTMENT apply to affected area BID x 14 days MUPIROCIN 2 % EXTERNAL OINTMENT 094167 MUPIROCIN Inactive MONTELUKAST SODIUM 10 MG ORAL TABLET 1 tab po in the evening 2014 MONTELUKAST SODIUM 10 MG ORAL TABLET 227781 MONTELUKAST SODIUM Inactive BENZONATATE 100 MG ORAL CAPSULE 1 cap po TID PRN BENZONATATE 100 MG ORAL CAPSULE 730381 BENZONATATE Inactive NEURONTIN 300 MG ORAL CAPSULE 1 cap by mouth three times daily for restless leg NEURONTIN 300 MG ORAL CAPSULE 335703 GABAPENTIN Inactive LEVAQUIN 500 MG ORAL TABLET 1 tablet by mouth daily LEVAQUIN 500 MG ORAL TABLET 151831 LEVOFLOXACIN Inactive PREDNISONE 20 MG ORAL TABLET 1 TID x 2 days, then 1 BID x 3 days, then 1 Daily x 3 days, then stop PREDNISONE 20 MG ORAL TABLET 627566 PREDNISONE Inactive POTASSIUM CHLORIDE ER 10 MEQ ORAL TABLET EXTENDED RELEASE take 1 tab po daily POTASSIUM CHLORIDE ER 10 MEQ ORAL TABLET EXTENDED RELEASE POTASSIUM CHLORIDE Inactive PREDNISONE 20 MG ORAL TABLET 1 tab twice daily for 3 day, then one daily for three days PREDNISONE 20 MG ORAL TABLET 673982 PREDNISONE Inactive TESSALON PERLES 100 MG ORAL CAPSULE 1 to 2 tablets by mouth 3 times daily as needed for cough TESSALON PERLES 100 MG ORAL CAPSULE 291366 BENZONATATE Inactive POTASSIUM CHLORIDE ER 10 MEQ ORAL CAPSULE EXTENDED RELEASE 1 capsule by mouth daily POTASSIUM CHLORIDE ER 10 MEQ ORAL CAPSULE EXTENDED RELEASE POTASSIUM CHLORIDE Inactive NITROSTAT 0.4 MG SUBLINGUAL TABLET SUBLINGUAL 1 tab under tongueas needed for chest pain ( november take 3 total, 5 min apart, then call 911) NITROSTAT 0.4 MG SUBLINGUAL TABLET SUBLINGUAL 071704 NITROGLYCERIN Inactive LOVASTATIN 40 MG ORAL TABLET 1 pill by mouth nightly for cholesterol LOVASTATIN 40 MG ORAL TABLET 673568 LOVASTATIN Inactive CEFDINIR 300 MG ORAL CAPSULE take 1 cap po bid x 10 days CEFDINIR 300 MG ORAL CAPSULE 634501 CEFDINIR Inactive ACEBUTOLOL HCL 200 MG ORAL CAPSULE 1 cap in the morning and 2 caps in the evening ACEBUTOLOL HCL 200 MG ORAL CAPSULE 304199 ACEBUTOLOL HCL Inactive VENTOLIN HFA 108 (90 Base) MCG/ACT INHALATION AEROSOL SOLUTION 2 -4 puffs four times a day PRN VENTOLIN HFA 108 (90 Base) MCG/ ACT INHALATION AEROSOL SOLUTION ALBUTEROL SULFATE Inactive LEVAQUIN 500 MG ORAL TABLET Take 1 tab po daily x 8 days LEVAQUIN 500 MG ORAL TABLET 198342 LEVOFLOXACIN Inactive PREDNISONE 20 MG ORAL TABLET 2 tabs daily for 4 days, 1 tab daily for 4 days, 1/2 tab daily for 4 days PREDNISONE 20 MG ORAL TABLET 458675 PREDNISONE Inactive LOVASTATIN 40 MG ORAL TABLET Take 1 tab po every hs LOVASTATIN 40 MG ORAL TABLET 963664 LOVASTATIN Inactive DILAUDID 2 MG ORAL TABLET Take 1/2 tab po every 4 hours as needed for pain DILAUDID 2 MG ORAL TABLET 884508 HYDROMORPHONE HCL Inactive AMITRIPTYLINE HCL 25 MG ORAL TABLET 1 q hs prn AMITRIPTYLINE HCL 25 MG ORAL TABLET 886374 AMITRIPTYLINE HCL Inactive MECLIZINE HCL 25 MG ORAL TABLET 1 tablet three times daily for 3 days, then 1/ 2 tab three times daily for 3 days. MECLIZINE HCL 25 MG ORAL TABLET 900087 MECLIZINE HCL Inactive AMLODIPINE BESYLATE 5 MG ORAL TABLET Take 1 tab po daily AMLODIPINE BESYLATE 5 MG ORAL TABLET 702879 AMLODIPINE BESYLATE Inactive TOPIRAMATE 25 MG ORAL TABLET 1 tab po BID TOPIRAMATE 25 MG ORAL TABLET 544853 TOPIRAMATE Inactive PREDNISONE 20 MG ORAL TABLET 1 tablet twice daily for 2 days, then 1 tablet once daily for 2 days PREDNISONE 20 MG ORAL TABLET 123101 PREDNISONE Inactive PREDNISONE 20 MG ORAL TABLET 1 tab twice daily for 3 day, then one daily for three days PREDNISONE 20 MG ORAL TABLET 551623 PREDNISONE Inactive NIFEDIPINE ER 30 MG ORAL TABLET EXTENDED RELEASE 24 HOUR 1 daily NIFEDIPINE ER 30 MG ORAL TABLET EXTENDED RELEASE 24 HOUR NIFEDIPINE Inactive AMLODIPINE BESYLATE 5 MG ORAL TABLET 1 tablet by mouth daily 2016 AMLODIPINE BESYLATE 5 MG ORAL TABLET 270302 AMLODIPINE BESYLATE Inactive LASIX 20 MG ORAL TABLET 1 tablet by mouth every morning LASIX 20 MG ORAL TABLET 233680 FUROSEMIDE Inactive POTASSIUM CHLORIDE ER 10 MEQ ORAL CAPSULE EXTENDED RELEASE 1 capsule BID 2016 POTASSIUM CHLORIDE ER 10 MEQ ORAL CAPSULE EXTENDED RELEASE POTASSIUM CHLORIDE Inactive POTASSIUM CHLORIDE 20 MEQ ORAL PACKET 1 tab po q day POTASSIUM CHLORIDE 20 MEQ ORAL PACKET 8718687 POTASSIUM CHLORIDE Inactive PREDNISONE 20 MG ORAL TABLET 2 tablets by mouth today, then 1 tablet by mouth days 2-3 PREDNISONE 20 MG ORAL TABLET 037272 PREDNISONE Inactive SPIRONOLACTONE 25 MG ORAL TABLET 1 tablet by mouth daily SPIRONOLACTONE 25 MG ORAL TABLET 700356 SPIRONOLACTONE Inactive AZITHROMYCIN 250 MG ORAL TABLET 2 po qd x 1 day, then 1 po qd x 4 days 04/06 AZITHROMYCIN 250 MG ORAL TABLET 992687 AZITHROMYCIN Inactive AZITHROMYCIN 250 MG ORAL TABLET 2 po qd x 1 day, then 1 po qd x 4 days 12/30 AZITHROMYCIN 250 MG ORAL TABLET 330637 AZITHROMYCIN Inactive PREDNISONE 20 MG ORAL TABLET 2 po qd x 5 days PREDNISONE 20 MG ORAL TABLET 198782 PREDNISONE Inactive Vital Signs Date Name Value [...] Panel - Chemistry sodium, serum 140 mmol/L 687-770 2311/07/13 potassium, serum 3.2 mmol/L 3.5-5.2 chloride, serum 103 mmol/L 98-107 carbon dioxide, venous blood 26.9 mmol/L 21.0-32.0 blood glucose 93 mg/dL 65-110 calcium, serum 9.2 mg/dL 8.5-10.1 urea nitrogen, blood 13 mg/dL 7-18 creatinine, serum 0.84 mg/dL 0.60-1.30 sodium, serum 140 mmol/L 241-655 5587/08/21 potassium, serum 3.8 mmol/L 3.5-5.2 chloride, serum [...] ... - Chemistry sodium, serum 141 mmol/L 935-518 1892/08/07 carbon dioxide, venous blood 34.0 mmol/L 21.0-32.0 [...] 1.40 mg/dL 0.00-1.00 cholesterol, serum 192 mg/dL 637-469 2088/10/19 triglyceride, serum, fasting 71 mg/dL 30-200 HDL cholesterol, serum 72 mg/dL 32-60 LDL cholesterol, serum 106 mg/dL 0-130 Lab Report: Rapid Strep - Lab Microbial identification kit, rapid strep method Negative Negative Lab Report: THEOPHYLLINE - Toxicology theophylline level, serum 3.1 ug/mL 10.0-20.0 Encounters Code Encounter Date Provider Facility CPT-11614 Level 4 Est. Patient 10:17:51 SALES PROMOTION OFFICER Harinder Cr [facility] CPT-95496 Level 3 Est. Patient 12:36:15 SALES PROMOTION OFFICER Harinder Cr [facility] CPT-70615 Level 3 Est. Patient 15:14:45 SALES PROMOTION OFFICER Harinder Hernandez [facility] CPT-97542 Level 4 Est. Patient 14:45:25 CDT Harinder Cr [facility] CPT-77560 Level 4 Est. Patient 09:15:13 CDT Harinder Cr [facility] CPT-82349 Level 3 Est. Patient 11:51:58 CDT Harinder Cr [facility] CPT-91502 Level 3 Est. Patient 11:30:05 CDT Harinder Cr [facility] CPT-52759 Level 4 Est. Patient 10:19:23 CDT Harinder Cr [facility] CPT-79658 Level 3 Est. Patient 09:58:[address] [facility] CPT-36485 Level 3 Est. Patient 12:37:[address] [facility] CPT-63026 Level 3 Est. Patient 18:37:17 CDT [address] [facility] CPT-42206 Level 4 Est. Patient 11:15:54 CDT Nettieog Newberry APRN [facility] CPT-24830 Level 3 Est. Patient 16:42:24 CDT [address] [facility] CPT-48588 Level 3 Est. Patient 15:03:[address] [facility] CPT-43908 Level 3 Est. Patient 15:03:[address] [facility] CPT-54224 Level 3 Est. Patient 12:14:34 CDT Harinder Hernandez [facility] CPT-98569 Level 3 Est. Patient 13:47:15 CDT Harinder Cr David [facility] CPT-28183 Level 3 Est. Patient 14:08:24 CDT Harinder Hernandez [facility] CPT-00171 Level 3 Est. Patient 10:07:15 CDT Harinder Cr David [facility] CPT-79109 Level 3 Est. Patient 10:06:59 CDT Harinder Hernandez [facility] CPT-21852 Level 3 Est. Patient 15:53:29 CDT Jae Morgan MD [facility] CPT-75291 Level 3 Est. Patient 17:19:04 CDT Harinder Cr [facility] CPT-34324 Level 3 Est. Patient 11:13:01 CDT Harinder Cr [facility] CPT-07842 Level 3 Est. Patient 09:03:58 CDT Harinder Cr [facility] CPT-57950 Level 3 Est. Patient 14:46:45 SALES PROMOTION OFFICER Harinder Hernandez [facility] CPT-09921 Level 3 Est. Patient 09:35:49 SALES PROMOTION OFFICER Harinder Hernandez [facility] CPT-15263 Level 3 Est. Patient 09:29:37 SALES PROMOTION OFFICER Harinder Hernandez [facility] CPT-54564 Level 3 Est. Patient 15:51:07 CDT Harinder Hernandez [facility] CPT-56463 Level 3 Est. Patient 18:13:13 CDT Harinder Hernandez [facility] CPT-33553 Level 3 Est. Patient 10:44:19 CDT Harinder Hernandez [facility] CPT-35829 Level 4 Est. Patient 10:07:19 SALES PROMOTION OFFICER Harinder Hernandez [facility] CPT-45549 Level 3 Est. Patient 15:59:32 SALES PROMOTION OFFICER Harinder Hernandez [facility] Procedures Code Procedure Name Date Entry Date Standard Description CPT-07433 Bone Density - XRAY USE ONLY 14:43:42 CDT CPT-G0009 Administration of Pneumococcal Vaccine 10:33:25 SALES PROMOTION OFFICER CPT-67686 Pneumovax 23 Injection Injectable 25 MCG/0.5ML 10:33:25 SALES PROMOTION OFFICER CPT-96601 First Vx - Ix admin for Medicare patients 10:33:25 SALES PROMOTION OFFICER CPT-70155 Fluzone Quadrivalent Intramuscular Suspension 0.5 ML 10: 33:25 SALES PROMOTION OFFICER CPT-Cryo Cryotherapy 10:17:51 SALES PROMOTION OFFICER CPT-G0438 Initial Annual Wellness Exam 10:08:59 SALES PROMOTION OFFICER CPT-89594 Abd compl w upright - XRAY USE ONLY 14:48:09 CDT 02/18 CPT-49113 Port a cath flush 13:46:05 CDT CPT-24411 Hip, complete, 2-3 views - XRAY USE ONLY 10:28:40 CDT CPT-47507 BMP - LAB USE ONLY 16:45:09 SALES PROMOTION OFFICER CPT-54289 Port a cath flush 12:00:13 SALES PROMOTION OFFICER CPT-TCMM Transitional Care Mgmt-Moderate 11:20:16 SALES PROMOTION OFFICER CPT-14722 First Vx - Ix admin for Medicare patients 17:35:15 CDT CPT-30146 Fluzone Preservative Free Intramuscular Suspension 17:35 :15 CDT CPT-26121 Microalbumin - LAB USE ONLY 11:52:05 CDT CPT-TCMM Transitional Care Mgmt-Moderate 11:33:57 CDT CPT-83650 No Charge Offi Visit 14:11:29 CDT CPT-93190 Magnesium - LAB USE ONLY 10:45:44 CDT CPT-10017 Lipid - LAB USE ONLY 10:45:44 CDT CPT-97623 CBC - LAB USE ONLY 10:45:44 CDT CPT-13574 Venipuncture Draw Fee 10:45:43 CDT CPT-11728 Venipuncture Draw Fee 18:21:27 CDT CPT-JTINJ Asp/Joint Injection 18:38:04 CDT CPT-97598 Immunization Each Additional Inj 17:38:04 CDT CPT-96721 Immunization Single Admin 17:38:04 CDT CPT-84049 Prevnar 13 17:38:04 CDT CPT-48852 Fluzone Quadrivalent preservative free (>=3yrs.) 17:38: 04 CDT CPT-67421 No Charge Offi Visit 11:14:03 CDT CPT-80955 Chest 2V Frontal and Lat 14:00:18 CDT CPT-OV Office Visit 16:10:28 CDT CPT-JTINJ Asp/Joint Injection 09:03:57 CDT CPT-Cryo Cryotherapy 09:35:49 SALES PROMOTION OFFICER CPT-JTINJ Asp/Joint Injection 09:34:45 SALES PROMOTION OFFICER CPT-J2930 Solu Medrol 125 mg (Methyl Prednisolone Sodium Succinate) 20:37:27 CDT CPT-08334 Abx/Therapy Injection 20:37:27 CDT CPT-48062 Port a cath flush 08:15:51 CDT CPT-85100 Port a cath flush 09:54:16 CDT CPT-65947 Port a cath flush 09:38:02 CDT CPT-60422 Port a cath flush 11:00:27 SALES PROMOTION OFFICER
--- OUTSIDE RECORDS SUMMARY | 2017-12-29 06:06 | XMS REPORT | Clinical Summary ---
[...] 4hrs PRN Wheezing Dx: J44.1 ALBUTEROL SULFATE 83111895149 Active Kortney Mccain Active AMLODIPINE BESYLATE 5 MG TABS 1 tablet by mouth daily AMLODIPINE BESYLATE 69013696762 Active Harinder Hernandez DO Active NIFEDIPINE ER 30 MG ORAL [id number] 1 daily NIFEDIPINE 36582775252 No Longer Active Harinder Hernandez DO Active POTASSIUM CHLORIDE 20 MEQ ORAL PACK Take 1 tablet by mouth daily POTASSIUM CHLORIDE 05951150730 Active Ciera Pimentel Active FLOVENT HFA 110 MCG/ACT AERO 2 puffs inhaled b.i.d. FLUTICASONE PROPIONATE HFA 55907714567 Active Harinder Hernandez DO Active POTASSIUM CHLORIDE CR 10 MEQ CPCR 1 capsule by mouth daily POTASSIUM CHLORIDE 63319026045 Active Harinder Hernandez DO Active EPIPEN 2-BRUNA 0.3 MG/0.3ML INJ SOAJ 1 INJ NEEDED EPINEPHRINE 25577275083 Active Harinder Hernandez DO Active PREDNISONE 20 MG TAB 1 tab twice daily for 3 day, then one daily for three days PREDNISONE 16480664124 No Longer Active Harinder Hernandez DO Active PREDNISONE 20 MG TAB 1 tablet twice daily for 2 days, then 1 tablet once daily for 2 days PREDNISONE 65409455101 No Longer Active Harinder Hernandez DO Active ASMANEX 120 METERED DOSES 220 MCG/INH INH AEPB 2 puffs orally twice daily MOMETASONE FUROATE 33419497886 Active Jeri Sosa RPT,RMA Active TOPIRAMATE 25 MG TABS 1 tab po BID TOPIRAMATE 91544461261 No Longer Active Nettie Newberry APRN Active AMLODIPINE BESYLATE 5 MG ORAL TABS Take 1 tab po daily AMLODIPINE BESYLATE 85230925310 No Longer Active Nettie Rohith MAHENDRA Active MECLIZINE HCL 25 MG TAB 1 tablet three times daily for 3 days, then 1/2 tab three times daily for 3 days. MECLIZINE HCL 81838479589 No Longer Active Nettie Newberry APRN Active AMITRIPTYLINE HCL 25 MG ORAL TABS 1 q hs prn AMITRIPTYLINE HCL 97479541294 No Longer Active Nettie Rohith MAHENDRA Active DILAUDID 2 MG ORAL TABS Take 1/2 tab po every 4 hours as needed for pain 2014 HYDROMORPHONE HCL 38588790414 No Longer Active Nettie Newberry APRN Active CLOPIDOGREL BISULFATE 75 MG ORAL TABS 1 tab by mouth once daily CLOPIDOGREL BISULFATE 21725332017 Active Tawnya Pardo MA Active ATORVASTATIN CALCIUM 10 MG ORAL TABS 1 at bedtime ATORVASTATIN CALCIUM 05908135719 Active Tawnya Pardo MA Active LOVASTATIN 40 MG ORAL TABS Take 1 tab po every hs LOVASTATIN 67375327789 No Longer Active Harinder Hernandez DO Active PREDNISONE 20 MG TAB 2 tabs daily for 4 days, 1 tab daily for 4 days, 1/2 tab daily for 4 days PREDNISONE 84070922230 No Longer Active Harinder Hernandez DO Active LEVAQUIN 500 MG ORAL TABS Take 1 tab po daily x 8 days LEVOFLOXACIN 47456454982 No Longer Active Harinder Henrandez DO Active VENTOLIN HFA 108 (90 BASE) MCG/ACT AERS 2 -4 puffs four times a day PRN 2013 ALBUTEROL SULFATE 35915683258 No Longer Active Jeri Sosa RPT,RMA Active ACEBUTOLOL HCL 200 MG CAPS 1 cap in the morning and 2 caps in the evening ACEBUTOLOL HCL 50845944962 No Longer Active Harinder Hernandez DO Active CEFDINIR 300 MG ORAL CAPS take 1 cap po bid x 10 days CEFDINIR 33449766320 No Longer Active Harinder Hernandez DO Active LOVASTATIN 40 MG TABS 1 pill by mouth nightly for cholesterol LOVASTATIN 46520979943 No Longer Active Nettie Newberry APRN Active NITROSTAT 0.4 MG SUBL 1 tab under tongueas needed for chest pain ( may take 3 total, 5 min apart, then call 911) NITROGLYCERIN 96967092059 No Longer Active Nettie Newberry APRN Active POTASSIUM CHLORIDE CR 10 MEQ CPCR 1 capsule by mouth daily 02/14 POTASSIUM CHLORIDE 11216457395 No Longer Active Nettie Newberry APRN Active TESSALON PERLES 100 MG CAP 1 to 2 tablets by mouth 3 times daily as needed for cough BENZONATATE 86378212338 No Longer Active Nettie Newberry APRN Active THEOPHYLLINE ER 200 MG ORAL [id number] Take 1 tab every 12 hours THEOPHYLLINE 98001107917 Active Tawnya Pardo MA Active PREDNISONE 20 MG TAB 2 po qd x 5 days PREDNISONE 18923246349 No Longer Active Jae Morgan MD Active AZITHROMYCIN 250 MG TABS 2 po qd x 1 day, then 1 po qd x 4 days AZITHROMYCIN 73708386228 No Longer Active Jae Morgan MD Active PREDNISONE 20 MG TAB 1 tab twice daily for 3 day, then one daily for three days PREDNISONE 40155649091 No Longer Active Jae Morgan MD Active SINGULAIR 10 MG TABS 1 pill by mouth every evening for breathing. MONTELUKAST SODIUM 96928351245 Active Tawnya Pardo MA Active TYLENOL 325 MG TAB 3 by mouth q4h as needed ACETAMINOPHEN 75071267262 Active Harinder Hernandez DO Active POTASSIUM CHLORIDE ER 10 MEQ CR-TABS take 1 tab po daily POTASSIUM CHLORIDE 69954983715 No Longer Active Harinder Hernandez DO Active PREDNISONE 20 MG TAB 1 TID x 2 days, then 1 BID x 3 days, then 1 Daily x 3 days, then stop PREDNISONE 87332863933 No Longer Active Jillina Frazell [employer] Active LEVAQUIN 500 MG TAB 1 tablet by mouth daily LEVOFLOXACIN 84563680034 No Longer Active Jillina Frazell W[employer] HEL[employer] Active NEURONTIN 300 MG CAP 1 cap by mouth three times daily for restless leg 06/22 GABAPENTIN 38345991351 No Longer Active Harinder Hernandez DO Active BENZONATATE 100 MG CAPS 1 cap po TID PRN BENZONATATE 96561520492 No Longer Active Harinder Hernandez DO Active MONTELUKAST SODIUM 10 MG TABS 1 tab po in the evening MONTELUKAST SODIUM 33485624035 No Longer Active Harinder Hernandez DO Active MUPIROCIN 2 % OINT apply to affected area BID x 14 days MUPIROCIN 02949042445 No Longer Active Harinder Hernandez DO Active TYLENOL EXTRA STRENGTH 500 MG TABS as needed ACETAMINOPHEN 50167750853 No Longer Active Harinder Hernandez DO Active PREDNISONE 10 MG TABS 1 tab po daily PREDNISONE 42296274773 No Longer Active Harinder Hernandez DO Active PREDNISONE 20 MG TAB 2 tabs daily for 4 days, 1 tab daily for 4 days, 1/2 tab daily for 4 days PREDNISONE 91112059047 No Longer Active Harinder Hernandez DO Active AZITHROMYCIN 250 MG TABS 2 po qd x 1 day, then 1 po qd x 4 days AZITHROMYCIN 35674664101 No Longer Active Harinder Hernandez DO Active PREDNISONE 20 MG TAB 3 tabs today, then 1 tab twice daily for 3 day, then one daily for three days PREDNISONE 67721385427 No Longer Active Harinder Hernandez DO Active NIFEDIAC CC 30 MG [id number] 1 tablet daily for raynaud's syndrome NIFEDIPINE 89669758750 No Longer Active Tawnya Pardo MA Active AMBIEN 10 MG TAB 1/2 tab by mouth at bedtime as needed for sleep ZOLPIDEM TARTRATE 73686482414 Active Harinder Hernandez DO Active CLONAZEPAM 1 MG TABS 1 tablet at bedtime for insomnia and restless legs 09/14 CLONAZEPAM 31851112854 Active Harinder Hernandez DO Active CLONAZEPAM 0.5 MG TABS 1 tab po daily CLONAZEPAM 79531031263 No Longer Active Harinder Hernandez DO Active PREDNISONE 10 MG TAB 1 tablet daily for COPD PREDNISONE 25769768235 Active Tawnya Pardo MA Active PROAIR HFA 108 (90 BASE) MCG/ACT AERS 2 puffs four times a day as needed 2012 ALBUTEROL SULFATE 38451964721 Active Tawnya Pardo MA Active FLOVENT HFA 110 MCG/ACT AERO 2 puffs inhaled b.i.d. FLUTICASONE PROPIONATE HFA 56662861097 Active Kortney Mccain Active ACIPHEX 20 MG TBEC 1 tab po daily RABEPRAZOLE SODIUM 12209977364 Active Kaylah Newberry Active CLONAZEPAM 0.5 MG TABS 1 tab po daily CLONAZEPAM 0.5 MG TABS 453745 CLONAZEPAM Inactive PREDNISONE 20 MG TAB 3 tabs today, then 1 tab twice daily for 3 day, then one daily for three days PREDNISONE 20 MG TAB 361222 PREDNISONE Inactive PREDNISONE 20 MG TAB 2 tabs daily for 4 days, 1 tab daily for 4 days, 1/2 tab daily for 4 days PREDNISONE 20 MG TAB 367968 PREDNISONE Inactive PREDNISONE 10 MG TABS 1 tab po daily PREDNISONE 10 MG TABS 416075 PREDNISONE Inactive TYLENOL EXTRA STRENGTH 500 MG TABS as needed TYLENOL EXTRA STRENGTH 500 MG TABS 439046 ACETAMINOPHEN Inactive MUPIROCIN 2 % OINT apply to affected area BID x 14 days MUPIROCIN 2 % OINT 492192 MUPIROCIN Inactive MONTELUKAST SODIUM 10 MG TABS 1 tab po in the evening MONTELUKAST SODIUM 10 MG TABS 20010818 MONTELUKAST SODIUM Inactive BENZONATATE 100 MG CAPS 1 cap po TID PRN BENZONATATE 100 MG CAPS 19730321 BENZONATATE Inactive NEURONTIN 300 MG CAP 1 cap by mouth three times daily for restless leg 06/22 NEURONTIN 300 MG CAP 965151 GABAPENTIN Inactive LEVAQUIN 500 MG TAB 1 tablet by mouth daily LEVAQUIN 500 MG TAB 549342 LEVOFLOXACIN Inactive PREDNISONE 20 MG TAB 1 TID x 2 days, then 1 BID x 3 days, then 1 Daily x 3 days, then stop PREDNISONE 20 MG TAB 912202 PREDNISONE Inactive POTASSIUM CHLORIDE ER 10 MEQ CR-TABS take 1 tab po daily POTASSIUM CHLORIDE ER 10 MEQ CR-TABS POTASSIUM CHLORIDE Inactive PREDNISONE 20 MG TAB 1 tab twice daily for 3 day, then one daily for three days PREDNISONE 20 MG TAB 737851 PREDNISONE Inactive TESSALON PERLES 100 MG CAP [...] then call 911) NITROSTAT 0.4 MG SUBL 945325 NITROGLYCERIN Inactive LOVASTATIN 40 MG TABS 1 pill by mouth nightly for cholesterol LOVASTATIN 40 MG TABS 794612 LOVASTATIN Inactive CEFDINIR 300 MG ORAL CAPS take 1 cap po bid x 10 days CEFDINIR 300 MG ORAL CAPS 20021018 CEFDINIR Inactive ACEBUTOLOL HCL 200 MG CAPS 1 cap in the morning and 2 caps in the evening ACEBUTOLOL HCL 200 MG CAPS 041815 ACEBUTOLOL HCL Inactive VENTOLIN HFA 108 (90 BASE) MCG/ACT AERS 2 -4 puffs four times a day PRN 2013 VENTOLIN HFA 108 (90 BASE) MCG/ACT AERS ALBUTEROL SULFATE Inactive LEVAQUIN 500 MG ORAL TABS Take 1 tab po daily x 8 days LEVAQUIN 500 MG ORAL TABS 887451 LEVOFLOXACIN Inactive PREDNISONE 20 MG TAB 2 tabs daily for 4 days, 1 tab daily for 4 days, 1/2 tab daily for 4 days PREDNISONE 20 MG TAB 729683 PREDNISONE Inactive LOVASTATIN 40 MG ORAL TABS Take 1 tab po every hs LOVASTATIN 40 MG ORAL TABS 018093 LOVASTATIN Inactive DILAUDID 2 MG ORAL TABS Take 1/2 tab po every 4 hours as needed for pain 2014 DILAUDID 2 MG ORAL TABS 843068 HYDROMORPHONE HCL Inactive AMITRIPTYLINE HCL 25 MG ORAL TABS 1 q hs prn AMITRIPTYLINE HCL 25 MG ORAL TABS 750436 AMITRIPTYLINE HCL Inactive MECLIZINE HCL 25 MG TAB 1 tablet three times daily for 3 days, then 1/2 tab three times daily for 3 days. MECLIZINE HCL 25 MG TAB 265141 MECLIZINE HCL Inactive AMLODIPINE BESYLATE 5 MG ORAL TABS Take 1 tab po daily AMLODIPINE BESYLATE 5 MG ORAL TABS 726665 AMLODIPINE BESYLATE Inactive TOPIRAMATE 25 MG TABS 1 tab po BID TOPIRAMATE 25 MG TABS 133970 TOPIRAMATE Inactive PREDNISONE 20 MG TAB 1 tablet twice daily for 2 days, then 1 tablet once daily for 2 days PREDNISONE 20 MG TAB 041779 PREDNISONE Inactive PREDNISONE 20 MG TAB 1 tab twice daily for 3 day, then one daily for three days PREDNISONE 20 MG TAB 274666 PREDNISONE Inactive NIFEDIPINE ER 30 MG ORAL [id number] 1 daily NIFEDIPINE ER 30 MG ORAL [id number] NIFEDIPINE Inactive AZITHROMYCIN 250 MG TABS 2 po qd x 1 day, then 1 po qd x 4 days AZITHROMYCIN 250 MG TABS 3736732 AZITHROMYCIN Inactive AZITHROMYCIN 250 MG TABS 2 po qd x 1 day, then 1 po qd x 4 days AZITHROMYCIN 250 MG TABS 2969314 AZITHROMYCIN Inactive PREDNISONE 20 MG TAB 2 po qd x 5 days PREDNISONE 20 MG TAB 443155 PREDNISONE Inactive Vital Signs Date Name Value [...] Panel - Chemistry sodium, serum 137 mmol/L 672-118 6485/01/03 potassium, serum 3.4 mmol/L 3.5-5.2 chloride, serum [...] Magnesium - Chemistry cholesterol, serum 180 mg/dL 348-467 6095/08/08 triglyceride, serum, fasting 92 mg/dL 30-200 HDL cholesterol, serum 66 mg/dL 32-96 LDL cholesterol, serum 96 mg/dL 0-130 sodium, serum 142 mmol/L 471-266 1030/08/08 carbon dioxide, venous blood 27.4 mmol/L 21.0-32.0 [...] 10.0-20.0 Encounters Code Encounter Date Provider Facility CPT-89001 Level 3 Est. Patient 09:58:58 CDT Harinder Cr [facility] CPT-13971 Level 3 Est. Patient 12:37:21 CDT Harinder Cr [facility] CPT-94966 Level 3 Est. Patient 18:37:17 CDT Harinder [facility] CPT-49111 Level 4 Est. Patient 11:15:54 CDT Nettie Newberry [facility] CPT-94967 Level 3 Est. Patient 16:42:24 CDT Harinder Cr [facility] CPT-73090 Level 3 Est. Patient 15:03:36 CDT Harinder Cr [facility] CPT-55644 Level 3 Est. Patient 15:03:20 CDT Harinder Cr [facility] CPT-18633 Level 3 Est. Patient 12:14:34 CDT Harinder Cr [facility] CPT-14834 Level 3 Est. Patient 13:47:15 CDT Harinder Cr [facility] CPT-28178 Level 3 Est. Patient 14:08:24 CDT Harinder Hernandez [facility] CPT-47536 Level 3 Est. Patient 10:07:15 CDT Harinder Hernandez [facility] CPT-27348 Level 3 Est. Patient 10:06:59 CDT Harinder Hernandez [facility] CPT-49292 Level 3 Est. Patient 15:53:29 CDT Jae Morgan MD [facility] CPT-41192 Level 3 Est. Patient 17:19:04 CDT Harinder Hernandez [facility] CPT-61921 Level 3 Est. Patient 11:13:01 CDT Harinder Hernandez [facility] CPT-59605 Level 3 Est. Patient 09:03:58 CDT Harinder Hernandez [facility] CPT-28897 Level 3 Est. Patient 14:46:45 [employer] Harinder Hernandez [facility] CPT-58771 Level 3 Est. Patient 09:35:49 [employer] Harinder Hernandez [facility] CPT-99496 Level 3 Est. Patient 09:29:37 [employer] Harinder Hernandez [facility] CPT-16498 Level 3 Est. Patient 15:51:07 CDT Harinder Hernandez [facility] CPT-21536 Level 3 Est. Patient 18:13:13 CDT Harinder Hernandez [facility] CPT-21748 Level 3 Est. Patient 10:44:19 CDT Harinder Hernandez [facility] CPT-55259 Level 4 Est. Patient 10:07:19 [employer] Harinder Hernandez [facility] CPT-00408 Level 3 Est. Patient 15:59:32 [employer] Harinder Cr [facility] Procedures Code Procedure Name Date Entry Date Standard Description CPT-24167 BMP - LAB USE ONLY 16:45:09 [employer] CPT-70830 Port a cath flush 12:00:13 [employer] CPT-TCMM Transitional Care Mgmt-Moderate 11:20:16 [employer] CPT-40102 First Vx - Ix admin for Medicare patients 17:35:15 CDT CPT-70130 Fluzone Preservative Free Intramuscular Suspension 17:35 :15 CDT CPT-79858 Microalbumin - LAB USE ONLY 11:52:05 CDT CPT-TCMM Transitional Care Mgmt-Moderate 11:33:57 CDT CPT-90517 No Charge Offi Visit 14:11:29 CDT CPT-18415 Magnesium - LAB USE ONLY 10:45:44 CDT CPT-68669 Lipid - LAB USE ONLY 10:45:44 CDT CPT-00406 CBC - LAB USE ONLY 10:45:44 CDT CPT-92431 Venipuncture Draw Fee 10:45:43 CDT CPT-39659 Venipuncture Draw Fee 18:21:27 CDT CPT-JTINJ Asp/Joint Injection 18:38:04 CDT CPT-67513 Immunization Each Additional Inj 17:38:04 CDT CPT-99644 Immunization Single Admin 17:38:04 CDT CPT-62384 Prevnar 13 17:38:04 CDT CPT-49327 Fluzone Quadrivalent preservative free (>=3yrs.) 17:38: 04 CDT CPT-43872 No Charge Offi Visit 11:14:03 CDT CPT-35730 Chest 2V Frontal and Lat 14:00:18 CDT CPT-OV Office Visit 16:10:28 CDT CPT-JTINJ Asp/Joint Injection 09:03:57 CDT CPT-Cryo Cryotherapy 09:35:49 [employer] CPT-JTINJ Asp/Joint Injection 09:34:45 [employer] CPT-J2930 Solu Medrol 125 mg (Methyl Prednisolone Sodium Succinate) 20:37:27 CDT CPT-17725 Abx/Therapy Injection 20:37:27 CDT CPT-02745 Port a cath flush 08:15:51 CDT CPT-90405 Port a cath flush 09:54:16 CDT CPT-87201 Port a cath flush 09:38:02 CDT CPT-42987 Port a cath flush 11:00:27 [employer]
--- OUTSIDE RECORDS SUMMARY | 2017-12-29 06:08 | XMS REPORT | Clinical Summary ---
Author Author Admin, QIE Organization [facility] Address Unknown Phone Unavailable Allergies, [...] tab SL q5min PRN chest pain NITROGLYCERIN [id number] Active Meenu Alejo LPN Active THEOPHYLLINE ER 300 MG ORAL TABLET EXTENDED RELEASE 12 HOUR 1 po BID THEOPHYLLINE 67101806196 Active Kortney Mccain Active POTASSIUM CHLORIDE ER 20 MEQ ORAL TABLET EXTENDED RELEASE 1 po q day POTASSIUM CHLORIDE 11274331271 Active Kortney Mccain Active POTASSIUM CHLORIDE 20 MEQ ORAL PACKET 1 tab po q day POTASSIUM CHLORIDE 86076018983 No Longer Active Kortney Mccain Active POTASSIUM CHLORIDE ER 10 MEQ ORAL CAPSULE EXTENDED RELEASE 1 capsule BID 2016 POTASSIUM CHLORIDE 92813378705 No Longer Active Kortney Mccain Active LASIX 20 MG ORAL TABLET 1 tablet by mouth every morning FUROSEMIDE 37345634582 No Longer Active Kortney Mccain Active SPIRONOLACTONE 25 MG ORAL TABLET 1 tablet by mouth daily SPIRONOLACTONE 88751702061 Active Kortney Mccain Active FLUOXETINE HCL 10 MG ORAL CAPSULE 1 po qd for depression/anxiety FLUOXETINE HCL 19628455778 Active Harnider Hernandez DO Active VOLTAREN 1 % TRANSDERMAL GEL apply q 6-8 hour to left arm as needed for pain DICLOFENAC SODIUM 20878807450 Active Kortney Mccain Active ALBUTEROL SULFATE (2.5 MG/3ML) 0.083% INHALATION NEBULIZATION SOLUTION 1 vial neb q 4hrs for severe asthma. 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 NIFEDIPINE 76277914997 Active Kortney Mccain Active AMLODIPINE BESYLATE 5 MG ORAL TABLET 1 tablet by mouth daily 2016 AMLODIPINE BESYLATE 98164382510 No Longer Active Harinder Hernandez DO Active TOPAMAX 25 MG ORAL TABLET 1 tab po BID TOPIRAMATE 77413912144 Active Kortney Mccain Active FLUTICASONE PROPIONATE 50 MCG/ACT NASAL SUSPENSION 2 sprays per nostril daily PRN Allergies FLUTICASONE PROPIONATE 53234700157 Active Meenu Alejo LPN Active NIFEDIPINE ER 30 MG ORAL TABLET EXTENDED RELEASE 24 HOUR 1 daily NIFEDIPINE 00666141989 No Longer Active Harinder Hernandez DO Active FLOVENT HFA 110 MCG/ACT INHALATION AEROSOL 2 puffs inhaled b.i.d. FLUTICASONE PROPIONATE HFA 06997822384 Active Harinder Hernandez DO Active EPIPEN 2-BRUNA 0.3 MG/0.3ML INJECTION SOLUTION AUTO-INJECTOR 1 INJ NEEDED EPINEPHRINE 85336108399 Active Kortney Mccain Active PREDNISONE 20 MG ORAL TABLET 1 tab twice daily for 3 day, then one daily for three days PREDNISONE 82608580088 No Longer Active Harinder Hernandez DO Active PREDNISONE 20 MG ORAL TABLET 1 tablet twice daily for 2 days, then 1 tablet once daily for 2 days PREDNISONE 55543192712 No Longer Active Harinder Hernandez DO Active ASMANEX 120 METERED DOSES 220 MCG/INH INHALATION AEROSOL POWDER BREATH ACTIVATED 2 puffs orally twice daily MOMETASONE FUROATE 16609020620 Active Jeri Sosa LPN Active TOPIRAMATE 25 MG ORAL TABLET 1 tab po BID TOPIRAMATE 46209136449 No Longer Active Nettie Newberry APRN Active AMLODIPINE BESYLATE 5 MG ORAL TABLET Take 1 tab po daily AMLODIPINE BESYLATE 48218339474 No Longer Active Nettie Newberry APRN Active MECLIZINE HCL 25 MG ORAL TABLET 1 tablet three times daily for 3 days, then 1/ 2 tab three times daily for 3 days. MECLIZINE HCL 69747252156 No Longer Active Nettieog Newberry APRN Active AMITRIPTYLINE HCL 25 MG ORAL TABLET 1 q hs prn AMITRIPTYLINE HCL 43358181751 No Longer Active Nettieog Newberry APRN Active DILAUDID 2 MG ORAL TABLET Take 1/2 tab po every 4 hours as needed for pain HYDROMORPHONE HCL 08270755918 No Longer Active Nettie Newberry APRN Active CLOPIDOGREL BISULFATE 75 MG ORAL TABLET 1 tab by mouth once daily CLOPIDOGREL BISULFATE 29965576790 Active Meenu Alejo LPN Active ATORVASTATIN CALCIUM 10 MG ORAL TABLET 1 at bedtime ATORVASTATIN CALCIUM 83799783438 Active Kortney Mccain Active LOVASTATIN 40 MG ORAL TABLET Take 1 tab po every hs LOVASTATIN 82774429375 No Longer Active Harinder Hernandez DO Active PREDNISONE 20 MG ORAL TABLET 2 tabs daily for 4 days, 1 tab daily for 4 days, 1/2 tab daily for 4 days PREDNISONE 77376372658 No Longer Active Harinder Hernandez DO Active LEVAQUIN 500 MG ORAL TABLET Take 1 tab po daily x 8 days LEVOFLOXACIN 16759221922 No Longer Active Harinder Hernandez DO Active VENTOLIN HFA 108 (90 Base) MCG/ACT INHALATION AEROSOL SOLUTION 2 -4 puffs four times a day PRN ALBUTEROL SULFATE 37159005419 No Longer Active Jeri Sosa LPN Active ACEBUTOLOL HCL 200 MG ORAL CAPSULE 1 cap in the morning and 2 caps in the evening ACEBUTOLOL HCL 03289255218 No Longer Active Harinder Hernandez DO Active CEFDINIR 300 MG ORAL CAPSULE take 1 cap po bid x 10 days CEFDINIR 04759053097 No Longer Active Harinder Hernandez DO Active LOVASTATIN 40 MG ORAL TABLET 1 pill by mouth nightly for cholesterol LOVASTATIN 63515365845 No Longer Active Nettie Newberry APRN Active NITROSTAT 0.4 MG SUBLINGUAL TABLET SUBLINGUAL 1 tab under tongueas needed for chest pain ( may take 3 total, 5 min apart, then call 911) NITROGLYCERIN 55280402954 No Longer Active Nettie Newberry APRN Active POTASSIUM CHLORIDE ER 10 MEQ ORAL CAPSULE EXTENDED RELEASE 1 capsule by mouth daily POTASSIUM CHLORIDE 27005726839 No Longer Active Nettie Newberry APRN Active TESSALON PERLES 100 MG ORAL CAPSULE 1 to 2 tablets by mouth 3 times daily as needed for cough BENZONATATE 89485116897 No Longer Active Nettie Newberry APRN Active PREDNISONE 20 MG ORAL TABLET 2 po qd x 5 days PREDNISONE 48825628286 No Longer Active Jae Morgan MD Active AZITHROMYCIN 250 MG ORAL TABLET 2 po qd x 1 day, then 1 po qd x 4 days 12/30 AZITHROMYCIN 90375600485 No Longer Active Jae Morgan MD Active PREDNISONE 20 MG ORAL TABLET 1 tab twice daily for 3 day, then one daily for three days PREDNISONE 16509627593 No Longer Active Jae Morgan MD Active SINGULAIR 10 MG ORAL TABLET 1 pill by mouth every evening for breathing. 2014 MONTELUKAST SODIUM 03462796475 Active Meenu Alejo LPN Active TYLENOL 325 MG ORAL TABLET 3 by mouth q4h as needed ACETAMINOPHEN 23265900753 Active Harinder Hernandez DO Active POTASSIUM CHLORIDE ER 10 MEQ ORAL TABLET EXTENDED RELEASE take 1 tab po daily POTASSIUM CHLORIDE 39917280579 No Longer Active Harinder Hernandez DO Active PREDNISONE 20 MG ORAL TABLET 1 TID x 2 days, then 1 BID x 3 days, then 1 Daily x 3 days, then stop PREDNISONE 06406440146 No Longer Active John Montemayor APRN Active LEVAQUIN 500 MG ORAL TABLET 1 tablet by mouth daily LEVOFLOXACIN 26227853821 No Longer Active Derrickllkvng Montemayor APRN Active NEURONTIN 300 MG ORAL CAPSULE 1 cap by mouth three times daily for restless leg GABAPENTIN 88570055817 No Longer Active Harinder Hernandez DO Active BENZONATATE 100 MG ORAL CAPSULE 1 cap po TID PRN BENZONATATE 36464450024 No Longer Active Harinder Hernandez DO Active MONTELUKAST SODIUM 10 MG ORAL TABLET 1 tab po in the evening 2014 MONTELUKAST SODIUM 26423060876 No Longer Active Harinder Hernandez DO Active MUPIROCIN 2 % EXTERNAL OINTMENT apply to affected area BID x 14 days MUPIROCIN 62789549504 No Longer Active Harinder Hernandez DO Active TYLENOL EXTRA STRENGTH 500 MG ORAL TABLET as needed ACETAMINOPHEN 67450095742 No Longer Active Harinder Hernandez DO Active PREDNISONE 10 MG ORAL TABLET 1 tab po daily PREDNISONE 95193443612 No Longer Active Harinder Hernandez DO Active PREDNISONE 20 MG ORAL TABLET 2 tabs daily for 4 days, 1 tab daily for 4 days, 1/2 tab daily for 4 days PREDNISONE 71619165941 No Longer Active Harinder Hernandez DO Active AZITHROMYCIN 250 MG ORAL TABLET 2 po qd x 1 day, then 1 po qd x 4 days 04/06 AZITHROMYCIN 10874441354 No Longer Active Harinder Hernandez DO Active PREDNISONE 20 MG ORAL TABLET 3 tabs today, then 1 tab twice daily for 3 day, then one daily for three days PREDNISONE 71729761852 No Longer Active Harinder Hernandez DO Active NIFEDIAC CC 30 MG ORAL TABLET EXTENDED RELEASE 24 HOUR 1 tablet daily for raynaud's syndrome NIFEDIPINE 57912010600 No Longer Active Tawnya Pardo MA Active AMBIEN 10 MG ORAL TABLET 1/2 tab by mouth at bedtime as needed for sleep 2013 ZOLPIDEM TARTRATE 43056794266 Active Meenu Melo CHEN Active CLONAZEPAM 1 MG ORAL TABLET 1 tablet at bedtime for insomnia and restless legs CLONAZEPAM 82214497893 Active Harinder Hernandez DO Active CLONAZEPAM 0.5 MG ORAL TABLET 1 tab po daily CLONAZEPAM 31648194761 No Longer Active Harinder Hernandez DO Active PREDNISONE 10 MG ORAL TABLET 1 tablet daily for COPD PREDNISONE 39311537443 Active Kortney Mccain Active PROAIR HFA 108 (90 Base) MCG/ACT INHALATION AEROSOL SOLUTION 2 puffs four times a day as needed ALBUTEROL SULFATE 99957980415 Active Harinder Hernandez DO Active FLOVENT HFA 110 MCG/ACT INHALATION AEROSOL 2 puffs inhaled b.i.d. FLUTICASONE PROPIONATE HFA 73936936275 Active Kortney Mccain Active ACIPHEX 20 MG ORAL TABLET DELAYED RELEASE 1 tab po daily RABEPRAZOLE SODIUM 02279241418 Active Kaylah Newberry Active CLONAZEPAM 0.5 MG ORAL TABLET 1 tab po daily CLONAZEPAM 0.5 MG ORAL TABLET 090034 CLONAZEPAM Inactive PREDNISONE 20 MG ORAL TABLET 3 tabs today, then 1 tab twice daily for 3 day, then one daily for three days PREDNISONE 20 MG ORAL TABLET 444673 PREDNISONE Inactive PREDNISONE 20 MG ORAL TABLET 2 tabs daily for 4 days, 1 tab daily for 4 days, 1/2 tab daily for 4 days PREDNISONE 20 MG ORAL TABLET 702142 PREDNISONE Inactive PREDNISONE 10 MG ORAL TABLET 1 tab po daily PREDNISONE 10 MG ORAL TABLET 097283 PREDNISONE Inactive TYLENOL EXTRA STRENGTH 500 MG ORAL TABLET as needed TYLENOL EXTRA STRENGTH 500 MG ORAL TABLET 091498 ACETAMINOPHEN Inactive MUPIROCIN 2 % EXTERNAL OINTMENT apply to affected area BID x 14 days MUPIROCIN 2 % EXTERNAL OINTMENT 700457 MUPIROCIN Inactive MONTELUKAST SODIUM 10 MG ORAL TABLET 1 tab po in the evening 2014 MONTELUKAST SODIUM 10 MG ORAL TABLET 963690 MONTELUKAST SODIUM Inactive BENZONATATE 100 MG ORAL CAPSULE 1 cap po TID PRN BENZONATATE 100 MG ORAL CAPSULE 279261 BENZONATATE Inactive NEURONTIN 300 MG ORAL CAPSULE 1 cap by mouth three times daily for restless leg NEURONTIN 300 MG ORAL CAPSULE 325475 GABAPENTIN Inactive LEVAQUIN 500 MG ORAL TABLET 1 tablet by mouth daily LEVAQUIN 500 MG ORAL TABLET 083694 LEVOFLOXACIN Inactive PREDNISONE 20 MG ORAL TABLET 1 TID x 2 days, then 1 BID x 3 days, then 1 Daily x 3 days, then stop PREDNISONE 20 MG ORAL TABLET 151262 PREDNISONE Inactive POTASSIUM CHLORIDE ER 10 MEQ ORAL TABLET EXTENDED RELEASE take 1 tab po daily POTASSIUM CHLORIDE ER 10 MEQ ORAL TABLET EXTENDED RELEASE POTASSIUM CHLORIDE Inactive PREDNISONE 20 MG ORAL TABLET 1 tab twice daily for 3 day, then one daily for three days PREDNISONE 20 MG ORAL TABLET 397538 PREDNISONE Inactive TESSALON PERLES 100 MG ORAL CAPSULE 1 to 2 tablets by mouth 3 times daily as needed for cough TESSALON PERLES 100 MG ORAL CAPSULE 518780 BENZONATATE Inactive POTASSIUM CHLORIDE ER 10 MEQ ORAL CAPSULE EXTENDED RELEASE 1 capsule by mouth daily POTASSIUM CHLORIDE ER 10 MEQ ORAL CAPSULE EXTENDED RELEASE POTASSIUM CHLORIDE Inactive NITROSTAT 0.4 MG SUBLINGUAL TABLET SUBLINGUAL 1 tab under tongueas needed for chest pain ( may take 3 total, 5 min apart, then call 911) NITROSTAT 0.4 MG SUBLINGUAL TABLET SUBLINGUAL 095339 NITROGLYCERIN Inactive LOVASTATIN 40 MG ORAL TABLET 1 pill by mouth nightly for cholesterol LOVASTATIN 40 MG ORAL TABLET 007179 LOVASTATIN Inactive CEFDINIR 300 MG ORAL CAPSULE take 1 cap po bid x 10 days CEFDINIR 300 MG ORAL CAPSULE 533989 CEFDINIR Inactive ACEBUTOLOL HCL 200 MG ORAL CAPSULE 1 cap in the morning and 2 caps in the evening ACEBUTOLOL HCL 200 MG ORAL CAPSULE 358881 ACEBUTOLOL HCL Inactive VENTOLIN HFA 108 (90 Base) MCG/ACT INHALATION AEROSOL SOLUTION 2 -4 puffs four times a day PRN VENTOLIN HFA 108 (90 Base) MCG/ ACT INHALATION AEROSOL SOLUTION ALBUTEROL SULFATE Inactive LEVAQUIN 500 MG ORAL TABLET Take 1 tab po daily x 8 days LEVAQUIN 500 MG ORAL TABLET 702213 LEVOFLOXACIN Inactive PREDNISONE 20 MG ORAL TABLET 2 tabs daily for 4 days, 1 tab daily for 4 days, 1/2 tab daily for 4 days PREDNISONE 20 MG ORAL TABLET 549480 PREDNISONE Inactive LOVASTATIN 40 MG ORAL TABLET Take 1 tab po every hs LOVASTATIN 40 MG ORAL TABLET 835116 LOVASTATIN Inactive DILAUDID 2 MG ORAL TABLET Take 1/2 tab po every 4 hours as needed for pain DILAUDID 2 MG ORAL TABLET 019392 HYDROMORPHONE HCL Inactive AMITRIPTYLINE HCL 25 MG ORAL TABLET 1 q hs prn AMITRIPTYLINE HCL 25 MG ORAL TABLET 654757 AMITRIPTYLINE HCL Inactive MECLIZINE HCL 25 MG ORAL TABLET 1 tablet three times daily for 3 days, then 1/ 2 tab three times daily for 3 days. MECLIZINE HCL 25 MG ORAL TABLET 659217 MECLIZINE HCL Inactive AMLODIPINE BESYLATE 5 MG ORAL TABLET Take 1 tab po daily AMLODIPINE BESYLATE 5 MG ORAL TABLET 651877 AMLODIPINE BESYLATE Inactive TOPIRAMATE 25 MG ORAL TABLET 1 tab po BID TOPIRAMATE 25 MG ORAL TABLET 480917 TOPIRAMATE Inactive PREDNISONE 20 MG ORAL TABLET 1 tablet twice daily for 2 days, then 1 tablet once daily for 2 days PREDNISONE 20 MG ORAL TABLET 320802 PREDNISONE Inactive PREDNISONE 20 MG ORAL TABLET 1 tab twice daily for 3 day, then one daily for three days PREDNISONE 20 MG ORAL TABLET 948262 PREDNISONE Inactive NIFEDIPINE ER 30 MG ORAL TABLET EXTENDED RELEASE 24 HOUR 1 daily NIFEDIPINE ER 30 MG ORAL TABLET EXTENDED RELEASE 24 HOUR NIFEDIPINE Inactive AMLODIPINE BESYLATE 5 MG ORAL TABLET 1 tablet by mouth daily 2016 AMLODIPINE BESYLATE 5 MG ORAL TABLET 000519 AMLODIPINE BESYLATE Inactive LASIX 20 MG ORAL TABLET 1 tablet by mouth every morning LASIX 20 MG ORAL TABLET 209858 FUROSEMIDE Inactive POTASSIUM CHLORIDE ER 10 MEQ ORAL CAPSULE EXTENDED RELEASE 1 capsule BID 2016 POTASSIUM CHLORIDE ER 10 MEQ ORAL CAPSULE EXTENDED RELEASE POTASSIUM CHLORIDE Inactive POTASSIUM CHLORIDE 20 MEQ ORAL PACKET 1 tab po q day POTASSIUM CHLORIDE 20 MEQ ORAL PACKET 9155589 POTASSIUM CHLORIDE Inactive AZITHROMYCIN 250 MG ORAL TABLET 2 po qd x 1 day, then 1 po qd x 4 days 04/06 AZITHROMYCIN 250 MG ORAL TABLET 026100 AZITHROMYCIN Inactive AZITHROMYCIN 250 MG ORAL TABLET 2 po qd x 1 day, then 1 po qd x 4 days 12/30 AZITHROMYCIN 250 MG ORAL TABLET 115170 AZITHROMYCIN Inactive PREDNISONE 20 MG ORAL TABLET 2 po qd x 5 days PREDNISONE 20 MG ORAL TABLET 437540 PREDNISONE Inactive Vital Signs Date Name Value [...] Panel - Chemistry sodium, serum 140 mmol/L 071-404 1479/07/13 potassium, serum 3.2 mmol/L 3.5-5.2 chloride, serum 103 mmol/L 98-107 carbon dioxide, venous blood 26.9 mmol/L 21.0-32.0 blood glucose 93 mg/dL 65-110 calcium, serum 9.2 mg/dL 8.5-10.1 urea nitrogen, blood 13 mg/dL 7-18 creatinine, serum 0.84 mg/dL 0.60-1.30 sodium, serum 140 mmol/L 911-158 8790/08/21 potassium, serum 3.8 mmol/L 3.5-5.2 chloride, serum [...] ... - Chemistry sodium, serum 141 mmol/L 422-343 4581/08/07 carbon dioxide, venous blood 34.0 mmol/L 21.0-32.0 [...] 1.40 mg/dL 0.00-1.00 cholesterol, serum 192 mg/dL 276-574 2801/10/19 triglyceride, serum, fasting 71 mg/dL 30-200 HDL cholesterol, serum 72 mg/dL 32-60 LDL cholesterol, serum 106 mg/dL 0-130 Lab Report: THEOPHYLLINE - Toxicology theophylline level, serum 3.1 ug/mL 10.0-20.0 Encounters Code Encounter Date Provider Facility CPT-14672 Level 4 Est. Patient 14:45:25 CDT Harinder Cr [facility] CPT-80329 Level 4 Est. Patient 09:15:13 CDT Harinder Cr [facility] CPT-29784 Level 3 Est. Patient 11:51:58 CDT Harinder Hernandez [facility] CPT-29771 Level 3 Est. Patient 11:30:05 CDT Harinder Cr [facility] CPT-91314 Level 4 Est. Patient 10:19:23 CDT Harinder Cr [facility] CPT-57347 Level 3 Est. Patient 09:58:58 CDT Harinder Cr [facility] CPT-01234 Level 3 Est. Patient 12:37:21 CDT Harinder Cr [facility] CPT-28260 Level 3 Est. Patient 18:37:17 CDT Harinder Cr [facility] CPT-24008 Level 4 Est. Patient 11:15:54 CDT Nettie Newberry APRN [facility] CPT-34240 Level 3 Est. Patient 16:42:24 CDT Harinder Hernandez [facility] CPT-61242 Level 3 Est. Patient 15:03:36 CDT Harinder Hernandez [facility] CPT-86002 Level 3 Est. Patient 15:03:20 CDT Harinder Hernandez [facility] CPT-59527 Level 3 Est. Patient 12:14:34 CDT Harinder Hernandez [facility] CPT-55370 Level 3 Est. Patient 13:47:15 CDT Harinder Hernandez [facility] CPT-68389 Level 3 Est. Patient 14:08:24 CDT Harinder Hernandez [facility] CPT-67204 Level 3 Est. Patient 10:07:15 CDT Harinder Hernandez [facility] CPT-01514 Level 3 Est. Patient 10:06:59 CDT Harinder Hernandez [facility] CPT-03958 Level 3 Est. Patient 15:53:29 CDT Jae Morgan MD [facility] CPT-78267 Level 3 Est. Patient 17:19:04 CDT Harinder Hernandez [facility] CPT-67248 Level 3 Est. Patient 11:13:01 CDT Harinder Hernandez [facility] CPT-63828 Level 3 Est. Patient 09:03:58 CDT Harinder Shaye Hernandez [facility] CPT-11351 Level 3 Est. Patient 14:46:45 UKE OPERATOR Harinder Cr David [facility] CPT-77817 Level 3 Est. Patient 09:35:49 UKE OPERATOR Harinder Hernandez [facility] CPT-40658 Level 3 Est. Patient 09:29:37 UKE OPERATOR Harinder Hernandez [facility] CPT-36309 Level 3 Est. Patient 15:51:07 CDT Harinder Hernandez [facility] CPT-79550 Level 3 Est. Patient 18:13:13 CDT Harinder Hernandez [facility] CPT-57907 Level 3 Est. Patient 10:44:19 CDT Harinder Hernandez [facility] CPT-11159 Level 4 Est. Patient 10:07:19 UKE OPERATOR Harinder Hernandez [facility] CPT-78553 Level 3 Est. Patient 15:59:32 UKE OPERATOR Harinder Cr [facility] Procedures Code Procedure Name Date Entry Date Standard Description CPT-57606 Abd compl w upright - XRAY USE ONLY 14:48:09 CDT 02/18 CPT-35185 Port a cath flush 13:46:05 CDT CPT-30138 Hip, complete, 2-3 views - XRAY USE ONLY 10:28:40 CDT CPT-28393 BMP - LAB USE ONLY 16:45:09 UKE OPERATOR CPT-85901 Port a cath flush 12:00:13 UKE OPERATOR CPT-TCMM Transitional Care Mgmt-Moderate 11:20:16 UKE OPERATOR CPT-60879 First Vx - Ix admin for Medicare patients 17:35:15 CDT CPT-48888 Fluzone Preservative Free Intramuscular Suspension 17:35 :15 CDT CPT-88938 Microalbumin - LAB USE ONLY 11:52:05 CDT CPT-TCMM Transitional Care Mgmt-Moderate 11:33:57 CDT CPT-60330 No Charge Offi Visit 14:11:29 CDT CPT-38729 Magnesium - LAB USE ONLY 10:45:44 CDT CPT-60397 Lipid - LAB USE ONLY 10:45:44 CDT CPT-52244 CBC - LAB USE ONLY 10:45:44 CDT CPT-55889 Venipuncture Draw Fee 10:45:43 CDT CPT-08873 Venipuncture Draw Fee 18:21:27 CDT CPT-JTINJ Asp/Joint Injection 18:38:04 CDT CPT-04054 Immunization Each Additional Inj 17:38:04 CDT CPT-12399 Immunization Single Admin 17:38:04 CDT CPT-66619 Prevnar 13 17:38:04 CDT CPT-23308 Fluzone Quadrivalent preservative free (>=3yrs.) 17:38: 04 CDT CPT-24531 No Charge Offi Visit 11:14:03 CDT CPT-95129 Chest 2V Frontal and Lat 14:00:18 CDT CPT-OV Office Visit 16:10:28 CDT CPT-JTINJ Asp/Joint Injection 09:03:57 CDT CPT-Cryo Cryotherapy 09:35:49 UKE OPERATOR CPT-JTINJ Asp/Joint Injection 09:34:45 UKE OPERATOR CPT-J2930 Solu Medrol 125 mg (Methyl Prednisolone Sodium Succinate) 20:37:27 CDT CPT-14189 Abx/Therapy Injection 20:37:27 CDT CPT-32458 Port a cath flush 08:15:51 CDT CPT-72461 Port a cath flush 09:54:16 CDT CPT-19172 Port a cath flush 09:38:02 CDT [facility]-53082 Port a cath flush 11:00:27 UKE OPERATOR
--- OUTSIDE RECORDS SUMMARY | 2017-12-29 06:09 | XMS REPORT | Clinical Summary ---
Author Author Admin, QIE Organization [facility] Address Unknown Phone Unavailable Allergies, Adverse Reactions, [...] MEQ CPCR 1 capsule BID POTASSIUM CHLORIDE 16738484805 Active Kortney Mccain Active FLUOXETINE HCL 10 MG ORAL CAPS 1 po qd for depression/anxiety FLUOXETINE HCL 28405774310 Active Harinder Hernandez DO Active VOLTAREN 1 % GEL apply q 6-8 hour to left arm as needed for pain DICLOFENAC SODIUM 46417393838 Active Harinder Hernandez DO Active LASIX 20 MG TAB 1 tablet by mouth every morning FUROSEMIDE 24252486854 Active Kortney Mccain Active POTASSIUM CHLORIDE 20 MEQ ORAL PACK 1 tab po BID POTASSIUM CHLORIDE 53841532921 Active Kortney Mccain Active ALBUTEROL SULFATE 0.083 % NEBU SOLN 1 vial neb q 4hrs for severe asthma. 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 FLUTICASONE PROPIONATE HFA 65673543459 Active Harinder Hernandez DO Active EPIPEN 2-BRUNA 0.3 MG/0.3ML INJ SOAJ 1 INJ NEEDED EPINEPHRINE 29522423037 Active Harinder Hernandez DO Active PREDNISONE 20 MG TAB 1 tab twice daily for 3 day, then one daily for three days PREDNISONE 00469683862 No Longer Active Harinder Hernandez DO Active PREDNISONE 20 MG TAB 1 tablet twice daily for 2 days, then 1 tablet once daily for 2 days PREDNISONE 46519513544 No Longer Active Harinder Hernandez DO Active ASMANEX 120 METERED DOSES 220 MCG/INH INH AEPB 2 puffs orally twice daily MOMETASONE FUROATE 29161457081 Active Jeri Sosa LPN Active TOPIRAMATE 25 MG TABS 1 tab po BID TOPIRAMATE 79762509412 No Longer Active Nettie Newberry APRN Active AMLODIPINE BESYLATE 5 MG ORAL TABS Take 1 tab po daily AMLODIPINE BESYLATE 08467327805 No Longer Active Nettie Newberry APRN Active MECLIZINE HCL 25 MG TAB 1 tablet three times daily for 3 days, then 1/2 tab three times daily for 3 days. MECLIZINE HCL 50416902256 No Longer Active Nettie Newberry APRN Active AMITRIPTYLINE HCL 25 MG ORAL TABS 1 q hs prn AMITRIPTYLINE HCL 13464451827 No Longer Active Nettie Newberry APRN Active DILAUDID 2 MG ORAL TABS Take 1/2 tab po every 4 hours as needed for pain 2014 HYDROMORPHONE HCL 18285843010 No Longer Active Nettie Newberry APRN Active CLOPIDOGREL BISULFATE 75 MG ORAL TABS 1 tab by mouth once daily CLOPIDOGREL BISULFATE 08381319715 Active aHrinder Hernandez DO Active ATORVASTATIN CALCIUM 10 MG ORAL TABS 1 at bedtime ATORVASTATIN CALCIUM 10283942244 Active Tawnya Pardo MA Active LOVASTATIN 40 MG ORAL TABS Take 1 tab po every hs LOVASTATIN 80463344989 No Longer Active Harinder Hernandez DO Active PREDNISONE 20 MG TAB 2 tabs daily for 4 days, 1 tab daily for 4 days, 1/2 tab daily for 4 days PREDNISONE 68468558110 No Longer Active Harinder Hernandez DO Active LEVAQUIN 500 MG ORAL TABS Take 1 tab po daily x 8 days LEVOFLOXACIN 54451192657 No Longer Active Harinder Hernandez DO Active VENTOLIN HFA 108 (90 BASE) MCG/ACT AERS 2 -4 puffs four times a day PRN 2013 ALBUTEROL SULFATE 82629384805 No Longer Active Jeir Sosa LPN Active ACEBUTOLOL HCL 200 MG CAPS 1 cap in the morning and 2 caps in the evening ACEBUTOLOL HCL 15026149469 No Longer Active Harinder Hernandez DO Active CEFDINIR 300 MG ORAL CAPS take 1 cap po bid x 10 days CEFDINIR 36090181477 No Longer Active Harinder Hernandez DO Active LOVASTATIN 40 MG TABS 1 pill by mouth nightly for cholesterol LOVASTATIN 53147577516 No Longer Active Nettie Newberry APRN Active NITROSTAT 0.4 MG SUBL 1 tab under tongueas needed for chest pain ( may take 3 total, 5 min apart, then call 911) NITROGLYCERIN 89606737254 No Longer Active Nettie Newberry MAHENDRA Active POTASSIUM CHLORIDE CR 10 MEQ CPCR 1 capsule by mouth daily 02/14 POTASSIUM CHLORIDE 10560027991 No Longer Active Nettie Newberry MAHENDRA Active TESSALON PERLES 100 MG CAP 1 to 2 tablets by mouth 3 times daily as needed for cough BENZONATATE 87204038369 No Longer Active Nettie Newberry MAHENDRA Active THEOPHYLLINE ER 200 MG ORAL [id number] Take 1 tab every 12 hours THEOPHYLLINE 02525034002 Active Kortney Mccain Active PREDNISONE 20 MG TAB 2 po qd x 5 days PREDNISONE 82407808021 No Longer Active Jae Morgan MD Active AZITHROMYCIN 250 MG TABS 2 po qd x 1 day, then 1 po qd x 4 days AZITHROMYCIN 12884772215 No Longer Active Jae Morgan MD Active PREDNISONE 20 MG TAB 1 tab twice daily for 3 day, then one daily for three days PREDNISONE 39387514617 No Longer Active Jae Morgan MD Active SINGULAIR 10 MG TABS 1 pill by mouth every evening for breathing. MONTELUKAST SODIUM 99643344203 Active Tawnya Pardo MA Active TYLENOL 325 MG TAB 3 by mouth q4h as needed ACETAMINOPHEN 18406148467 Active Harinder Hernandez DO Active POTASSIUM CHLORIDE ER 10 MEQ CR-TABS take 1 tab po daily POTASSIUM CHLORIDE 78473205115 No Longer Active Harinder Hernandez DO Active PREDNISONE 20 MG TAB 1 TID x 2 days, then 1 BID x 3 days, then 1 Daily x 3 days, then stop PREDNISONE 31892377585 No Longer Active Jillkvng Frashai MCCRAY Active LEVAQUIN 500 MG TAB 1 tablet by mouth daily LEVOFLOXACIN 26170527053 No Longer Active Jillina Frazell MAHENDRA Active NEURONTIN 300 MG CAP 1 cap by mouth three times daily for restless leg 06/22 GABAPENTIN 81970482066 No Longer Active Harinder Hernandez DO Active BENZONATATE 100 MG CAPS 1 cap po TID PRN BENZONATATE 01646782327 No Longer Active Harinder Hernandez DO Active MONTELUKAST SODIUM 10 MG TABS 1 tab po in the evening MONTELUKAST SODIUM 61863326012 No Longer Active Harinder Hernandez DO Active MUPIROCIN 2 % OINT apply to affected area BID x 14 days MUPIROCIN 81574717320 No Longer Active Harinder Hernandez DO Active TYLENOL EXTRA STRENGTH 500 MG TABS as needed ACETAMINOPHEN 74210870285 No Longer Active Harinder Hernandez DO Active PREDNISONE 10 MG TABS 1 tab po daily PREDNISONE 38719798207 No Longer Active Harinder Hernandez DO Active PREDNISONE 20 MG TAB 2 tabs daily for 4 days, 1 tab daily for 4 days, 1/2 tab daily for 4 days PREDNISONE 35493973594 No Longer Active Harinder Hernandez DO Active AZITHROMYCIN 250 MG TABS 2 po qd x 1 day, then 1 po qd x 4 days AZITHROMYCIN 78396241423 No Longer Active Harinder Hernandez DO Active PREDNISONE 20 MG TAB 3 tabs today, then 1 tab twice daily for 3 day, then one daily for three days PREDNISONE 42227537778 No Longer Active Harinder Hernandez DO Active NIFEDIAC CC 30 MG [id number] 1 tablet daily for raynaud's syndrome NIFEDIPINE 80294592155 No Longer Active Tawnya Pardo MA Active AMBIEN 10 MG TAB 1/2 tab by mouth at bedtime as needed for sleep ZOLPIDEM TARTRATE 74676964473 Active Ciera Pimentel Active CLONAZEPAM 1 MG TABS 1 tablet at bedtime for insomnia and restless legs 09/14 CLONAZEPAM 79251321290 Active Harinder Hernandez DO Active CLONAZEPAM 0.5 MG TABS 1 tab po daily CLONAZEPAM 76025065090 No Longer Active Harinder Hernandez DO Active PREDNISONE 10 MG TAB 1 tablet daily for COPD PREDNISONE 70127195773 Active Ciera Pimentel Active PROAIR HFA 108 (90 BASE) MCG/ACT AERS 2 puffs four times a day as needed 2012 ALBUTEROL SULFATE 46147432390 Active Harinder Hernandez DO Active FLOVENT HFA 110 MCG/ACT AERO 2 puffs inhaled b.i.d. FLUTICASONE PROPIONATE HFA 11207450338 Active Kortney Mccain Active ACIPHEX 20 MG TBEC 1 tab po daily RABEPRAZOLE SODIUM 82918375576 Active Kaylah Newberry Active CLONAZEPAM 0.5 MG TABS 1 tab po daily CLONAZEPAM 0.5 MG TABS 553000 CLONAZEPAM Inactive PREDNISONE 20 MG TAB 3 tabs today, then 1 tab twice daily for 3 day, then one daily for three days PREDNISONE 20 MG TAB 537028 PREDNISONE Inactive PREDNISONE 20 MG TAB 2 tabs daily for 4 days, 1 tab daily for 4 days, 1/2 tab daily for 4 days PREDNISONE 20 MG TAB 875913 PREDNISONE Inactive PREDNISONE 10 MG TABS 1 tab po daily PREDNISONE 10 MG TABS 719203 PREDNISONE Inactive TYLENOL EXTRA STRENGTH 500 MG TABS as needed TYLENOL EXTRA STRENGTH 500 MG TABS 300118 ACETAMINOPHEN Inactive MUPIROCIN 2 % OINT apply to affected area BID x 14 days MUPIROCIN 2 % OINT 607708 MUPIROCIN Inactive MONTELUKAST SODIUM 10 MG TABS 1 tab po in the evening MONTELUKAST SODIUM 10 MG TABS 20010818 MONTELUKAST SODIUM Inactive BENZONATATE 100 MG CAPS 1 cap po TID PRN BENZONATATE 100 MG CAPS 273226 BENZONATATE Inactive NEURONTIN 300 MG CAP 1 cap by mouth three times daily for restless leg 06/22 NEURONTIN 300 MG CAP 633934 GABAPENTIN Inactive LEVAQUIN 500 MG TAB 1 tablet by mouth daily LEVAQUIN 500 MG TAB 19980216 LEVOFLOXACIN Inactive PREDNISONE 20 MG TAB 1 TID x 2 days, then 1 BID x 3 days, then 1 Daily x 3 days, then stop PREDNISONE 20 MG TAB 689825 PREDNISONE Inactive POTASSIUM CHLORIDE ER 10 MEQ CR-TABS take 1 tab po daily POTASSIUM CHLORIDE ER 10 MEQ CR-TABS POTASSIUM CHLORIDE Inactive PREDNISONE 20 MG TAB 1 tab twice daily for 3 day, then one daily for three days PREDNISONE 20 MG TAB 555234 PREDNISONE Inactive TESSALON PERLES 100 MG CAP 1 to 2 tablets by mouth 3 times daily as needed for cough TESSALON PERLES 100 MG CAP 691895 BENZONATATE Inactive POTASSIUM CHLORIDE CR 10 MEQ CPCR 1 capsule by mouth daily 02/14 POTASSIUM CHLORIDE CR 10 MEQ CPCR POTASSIUM CHLORIDE Inactive NITROSTAT 0.4 MG SUBL 1 tab under tongueas needed for chest pain ( may take 3 total, 5 min apart, then call 911) NITROSTAT 0.4 MG SUBL 927585 NITROGLYCERIN Inactive LOVASTATIN 40 MG TABS 1 pill by mouth nightly for cholesterol LOVASTATIN 40 MG TABS 905773 LOVASTATIN Inactive CEFDINIR 300 MG ORAL CAPS take 1 cap po bid x 10 days CEFDINIR 300 MG ORAL CAPS 190016 CEFDINIR Inactive ACEBUTOLOL HCL 200 MG CAPS 1 cap in the morning and 2 caps in the evening ACEBUTOLOL HCL 200 MG CAPS 926108 ACEBUTOLOL HCL Inactive VENTOLIN HFA 108 (90 [...] for 4 days PREDNISONE 20 MG TAB 084404 PREDNISONE Inactive LOVASTATIN 40 MG ORAL TABS Take 1 tab po every hs LOVASTATIN 40 MG ORAL TABS 197772 LOVASTATIN Inactive DILAUDID 2 MG ORAL TABS Take 1/2 tab po every 4 hours as needed for pain 2014 DILAUDID 2 MG ORAL TABS 715028 HYDROMORPHONE HCL Inactive AMITRIPTYLINE HCL 25 MG ORAL TABS 1 q hs prn AMITRIPTYLINE HCL 25 MG ORAL TABS 175930 AMITRIPTYLINE HCL Inactive MECLIZINE HCL 25 MG TAB 1 tablet three times daily for 3 days, then 1/2 tab three times daily for 3 days. MECLIZINE HCL 25 MG TAB 800294 MECLIZINE HCL Inactive AMLODIPINE BESYLATE 5 MG ORAL TABS Take 1 tab po daily AMLODIPINE BESYLATE 5 MG ORAL TABS 828191 AMLODIPINE BESYLATE Inactive TOPIRAMATE 25 MG TABS 1 tab po BID TOPIRAMATE 25 MG TABS 968283 TOPIRAMATE Inactive PREDNISONE 20 MG TAB 1 tablet twice daily for 2 days, then 1 tablet once daily for 2 days PREDNISONE 20 MG TAB 461079 PREDNISONE Inactive PREDNISONE 20 MG TAB 1 tab twice daily for 3 day, then one daily for three days PREDNISONE 20 MG TAB 601648 PREDNISONE Inactive NIFEDIPINE ER 30 MG ORAL [id number] 1 daily NIFEDIPINE ER 30 MG ORAL [id number] NIFEDIPINE Inactive AMLODIPINE BESYLATE 5 MG TABS 1 tablet by mouth daily AMLODIPINE BESYLATE 5 MG TABS 760505 AMLODIPINE BESYLATE Inactive AZITHROMYCIN 250 MG TABS 2 po qd x 1 day, then 1 po qd x 4 days AZITHROMYCIN 250 MG TABS 3781655 AZITHROMYCIN Inactive AZITHROMYCIN 250 MG TABS 2 po qd x 1 day, then 1 po qd x 4 days AZITHROMYCIN 250 MG TABS 1645043 AZITHROMYCIN Inactive PREDNISONE 20 MG TAB 2 po qd x 5 days PREDNISONE 20 MG TAB 436302 PREDNISONE Inactive Vital Signs Date Name Value [...] Panel - Chemistry sodium, serum 137 mmol/L 670-048 3981/01/03 potassium, serum 3.4 mmol/L 3.5-5.2 chloride, serum 102 mmol/L 98-107 carbon dioxide, venous blood 29.2 mmol/L 21.0-32.0 blood glucose 87 mg/dL 65-110 calcium, serum 8.5 mg/dL 8.5-10.1 urea nitrogen, blood 8 mg/dL 7-18 creatinine, serum 0.82 mg/dL 0.55-1.30 sodium, serum 140 mmol/L 901-666 9322/07/13 potassium, serum 3.2 mmol/L 3.5-5.2 chloride, serum [...] Magnesium - Chemistry cholesterol, serum 180 mg/dL 529-006 5205/08/08 triglyceride, serum, fasting 92 mg/dL 30-200 HDL cholesterol, serum 66 mg/dL 32-96 LDL cholesterol, serum 96 mg/dL 0-130 sodium, serum 142 mmol/L 244-082 9274/08/08 carbon dioxide, venous blood 27.4 mmol/L 21.0-32.0 [...] 10.0-20.0 Encounters Code Encounter Date Provider Facility CPT-14141 Level 4 Est. Patient 14:45:25 CDT Harinder Cr [facility] CPT-46488 Level 4 Est. Patient 09:15:13 CDT Harinder Cr [facility] CPT-06777 Level 3 Est. Patient 11:51:58 CDT Harinder Cr [facility] CPT-11308 Level 3 Est. Patient 11:30:05 CDT Harinder Cr [facility] CPT-42647 Level 4 Est. Patient 10:19:23 CDT Harinder Cr [facility] CPT-73043 Level 3 Est. Patient 09:58:58 CDT Harinder Cr [facility] CPT-21457 Level 3 Est. Patient 12:37:21 CDT Harinder Cr [facility] CPT-05021 Level 3 Est. Patient 18:37:17 CDT Harinder Shaye [facility] CPT-17284 Level 4 Est. Patient 11:15:54 CDT Nettie eNwberry [facility] [place] CPT-30340 Level 3 Est. Patient 16:42:24 CDT Harinder W [facility] CPT-13514 Level 3 Est. Patient 15:03:36 CDT Harinder Hernandez [facility] CPT-94295 Level 3 Est. Patient 15:03:20 CDT Harinder Hernandez [facility] CPT-63653 Level 3 Est. Patient 12:14:34 CDT Harinder Hernandez [facility] CPT-87523 Level 3 Est. Patient 13:47:15 CDT Harinder Hernandez [facility] CPT-55514 Level 3 Est. Patient 14:08:24 CDT Harinder Hernandez [facility] CPT-69877 Level 3 Est. Patient 10:07:15 CDT Harinder Hernandez [facility] CPT-67227 Level 3 Est. Patient 10:06:59 CDT Harinder Hernandez [facility] CPT-10038 Level 3 Est. Patient 15:53:29 CDT Jae Morgan MD [facility] CPT-16091 Level 3 Est. Patient 17:19:04 CDT Harinder Hernandez [facility] CPT-67666 Level 3 Est. Patient 11:13:01 CDT Harinder Hernandez [facility] CPT-75643 Level 3 Est. Patient 09:03:58 CDT Harinder Hernandez [facility] CPT-77001 Level 3 Est. Patient 14:46:45 LAST CODE STRIPER Harinder Hernandez [facility] CPT-76827 Level 3 Est. Patient 09:35:49 LAST CODE STRIPER Harinder Cr David [facility] CPT-47328 Level 3 Est. Patient 09:29:37 LAST CODE STRIPER Harinder Cr David [facility] CPT-97035 Level 3 Est. Patient 15:51:07 CDT Harinder Hernandez [facility] CPT-67943 Level 3 Est. Patient 18:13:13 CDT Harinder Hernandez [facility] CPT-77355 Level 3 Est. Patient 10:44:19 CDT Harinder Hernandez [facility] CPT-90973 Level 4 Est. Patient 10:07:19 LAST CODE STRIPER Harinder Hernandez [facility] CPT-91622 Level 3 Est. Patient 15:59:32 LAST CODE STRIPER Harinder Cr [facility] [place] Procedures Code Procedure Name Date Entry Date Standard Description CPT-86135 Abd compl w upright - XRAY USE ONLY 14:48:09 CDT 02/18 CPT-53743 Port a cath flush 13:46:05 CDT CPT-69511 Hip, complete, 2-3 views - XRAY USE ONLY 10:28:40 CDT CPT-17223 BMP - LAB USE ONLY 16:45:09 LAST CODE STRIPER CPT-57944 Port a cath flush 12:00:13 LAST CODE STRIPER CPT-TCMM Transitional Care Mgmt-Moderate 11:20:16 LAST CODE STRIPER CPT-39005 First Vx - Ix admin for Medicare patients 17:35:15 CDT CPT-89783 Fluzone Preservative Free Intramuscular Suspension 17:35 :15 CDT CPT-14811 Microalbumin - LAB USE ONLY 11:52:05 CDT CPT-TCMM Transitional Care Mgmt-Moderate 11:33:57 CDT CPT-24005 No Charge Offi Visit 14:11:29 CDT CPT-21583 Magnesium - LAB USE ONLY 10:45:44 CDT CPT-27389 Lipid - LAB USE ONLY 10:45:44 CDT CPT-00360 CBC - LAB USE ONLY 10:45:44 CDT CPT-06854 Venipuncture Draw Fee 10:45:43 CDT CPT-33868 Venipuncture Draw Fee 18:21:27 CDT CPT-JTINJ Asp/Joint Injection 18:38:04 CDT CPT-49827 Immunization Each Additional Inj 17:38:04 CDT CPT-70974 Immunization Single Admin 17:38:04 CDT CPT-06515 Prevnar 13 17:38:04 CDT CPT-67633 Fluzone Quadrivalent preservative free (>=3yrs.) 17:38: 04 CDT CPT-83189 No Charge Offi Visit 11:14:03 CDT CPT-56202 Chest 2V Frontal and Lat 14:00:18 CDT CPT-OV Office Visit 16:10:28 CDT CPT-JTINJ Asp/Joint Injection 09:03:57 CDT CPT-Cryo Cryotherapy 09:35:49 LAST CODE STRIPER CPT-JTINJ Asp/Joint Injection 09:34:45 LAST CODE STRIPER CPT-J2930 Solu Medrol 125 mg (Methyl Prednisolone Sodium Succinate) 20:37:27 CDT CPT-08306 Abx/Therapy Injection 20:37:27 CDT CPT-61628 Port a cath flush 08:15:51 CDT CPT-40702 Port a cath flush 09:54:16 CDT CPT-04345 Port a cath flush 09:38:02 CDT CPT-67752 Port a cath flush 11:00:27 LAST CODE STRIPER
--- OUTSIDE RECORDS SUMMARY | 2017-12-29 06:10 | XMS REPORT | Clinical Summary ---
Author Author Admin, QIE Organization [facility] Address Unknown Phone Unavailable Allergies, Adverse Reactions, [...] Screening for malignant neoplasm, colon V76.51 Resolved Harinedr Hernandez DO Screening for malignant neoplasms of [...] 2 puffs orally twice daily MOMETASONE FUROATE [id number] Active Jeri Sosa RPT,RMA Active NIFEDIPINE ER 30 MG ORAL [id number] 1 daily NIFEDIPINE 06156196316 Active Tawnya Prado MA Active TOPIRAMATE 25 MG TABS 1 tab po BID TOPIRAMATE 94286561087 No Longer Active Nettie Newberry APRN Active AMLODIPINE BESYLATE 5 MG ORAL TABS Take 1 tab po daily AMLODIPINE BESYLATE 29452333908 No Longer Active Nettie Newberry APRN Active MECLIZINE HCL 25 MG TAB 1 tablet three times daily for 3 days, then 1/2 tab three times daily for 3 days. MECLIZINE HCL 24639081043 No Longer Active Nettie Newberry APRN Active AMITRIPTYLINE HCL 25 MG ORAL TABS 1 q hs prn AMITRIPTYLINE HCL 68852687291 No Longer Active Nettie Newberry APRN Active DILAUDID 2 MG ORAL TABS Take 1/2 tab po every 4 hours as needed for pain 2014 HYDROMORPHONE HCL 65446790424 No Longer Active Nettie Newberry APRN Active CLOPIDOGREL BISULFATE 75 MG ORAL TABS 1 tab by mouth once daily CLOPIDOGREL BISULFATE 99043852023 Active Tawnya Pardo MA Active ATORVASTATIN CALCIUM 10 MG ORAL TABS 1 at bedtime ATORVASTATIN CALCIUM 52431228626 Active Tawnya Pardo MA Active LOVASTATIN 40 MG ORAL TABS Take 1 tab po every hs LOVASTATIN 36407461175 No Longer Active Harinder Hernandez DO Active PREDNISONE 20 MG TAB 2 tabs daily for 4 days, 1 tab daily for 4 days, 1/2 tab daily for 4 days PREDNISONE 60917974638 No Longer Active Harinder Hernandez DO Active LEVAQUIN 500 MG ORAL TABS Take 1 tab po daily x 8 days LEVOFLOXACIN 52088325559 No Longer Active Harinder Hernandez DO Active VENTOLIN HFA 108 (90 BASE) MCG/ACT AERS 2 -4 puffs four times a day PRN 2013 ALBUTEROL SULFATE 33620913166 No Longer Active Jeri Sosa RPT,RMA Active ACEBUTOLOL HCL 200 MG CAPS 1 cap in the morning and 2 caps in the evening ACEBUTOLOL HCL 40944628498 No Longer Active Harinder Hernandez DO Active CEFDINIR 300 MG ORAL CAPS take 1 cap po bid x 10 days CEFDINIR 86853693127 No Longer Active Harinder Hernandez DO Active LOVASTATIN 40 MG TABS 1 pill by mouth nightly for cholesterol LOVASTATIN 08204278022 No Longer Active Nettie Newberry MAHENDRA Active NITROSTAT 0.4 MG SUBL 1 tab under tongueas needed for chest pain ( may take 3 total, 5 min apart, then call 911) NITROGLYCERIN 34243393553 No Longer Active Nettieog Newberry APRN Active POTASSIUM CHLORIDE CR 10 MEQ CPCR 1 capsule by mouth daily 02/14 POTASSIUM CHLORIDE 26514547524 No Longer Active Nettie Newberry MAHENDRA Active TESSALON PERLES 100 MG CAP 1 to 2 tablets by mouth 3 times daily as needed for cough BENZONATATE 68795797225 No Longer Active Nettieog Newberry APRN Active THEOPHYLLINE ER 200 MG ORAL [id number] Take 1 tab every 12 hours THEOPHYLLINE 91793647623 Active Tawnya Pardo MA Active PREDNISONE 20 MG TAB 2 po qd x 5 days PREDNISONE 15958356417 No Longer Active Jae Morgan MD Active AZITHROMYCIN 250 MG TABS 2 po qd x 1 day, then 1 po qd x 4 days AZITHROMYCIN 74485967316 No Longer Active Jae Morgan MD Active PREDNISONE 20 MG TAB 1 tab twice daily for 3 day, then one daily for three days PREDNISONE 86026628189 No Longer Active Jae Morgan MD Active SINGULAIR 10 MG TABS 1 pill by mouth every evening for breathing. MONTELUKAST SODIUM 24205046686 Active Tawnya Pardo MA Active TYLENOL 325 MG TAB 3 by mouth q4h as needed ACETAMINOPHEN 49565141047 Active Harinder Hernandez DO Active POTASSIUM CHLORIDE ER 10 MEQ CR-TABS take 1 tab po daily POTASSIUM CHLORIDE 81099113506 No Longer Active Harinder Hernandez DO Active PREDNISONE 20 MG TAB 1 TID x 2 days, then 1 BID x 3 days, then 1 Daily x 3 days, then stop PREDNISONE 00874740200 No Longer Active Jillina Frazell CLINICAL NURSE EDUCATOR Active LEVAQUIN 500 MG TAB 1 tablet by mouth daily LEVOFLOXACIN 49446075617 No Longer Active Jillina Frazell CLINICAL NURSE EDUCATOR Active NEURONTIN 300 MG CAP 1 cap by mouth three times daily for restless leg 06/22 GABAPENTIN 95608284739 No Longer Active Harinder Hernandez DO Active BENZONATATE 100 MG CAPS 1 cap po TID PRN BENZONATATE 66278830385 No Longer Active Harinder Hernandez DO Active MONTELUKAST SODIUM 10 MG TABS 1 tab po in the evening MONTELUKAST SODIUM 82380107969 No Longer Active Harinder Hernandez DO Active MUPIROCIN 2 % OINT apply to affected area BID x 14 days MUPIROCIN 92399592324 No Longer Active Harinder Hernandez DO Active TYLENOL EXTRA STRENGTH 500 MG TABS as needed ACETAMINOPHEN 81890324625 No Longer Active Harinder Hernandez DO Active PREDNISONE 10 MG TABS 1 tab po daily PREDNISONE 20150320589 No Longer Active Harinder Hernandez DO Active PREDNISONE 20 MG TAB 2 tabs daily for 4 days, 1 tab daily for 4 days, 1/2 tab daily for 4 days PREDNISONE 77100993334 No Longer Active Harinder Hernandez DO Active AZITHROMYCIN 250 MG TABS 2 po qd x 1 day, then 1 po qd x 4 days AZITHROMYCIN 84391407604 No Longer Active Harinder Hernandez DO Active PREDNISONE 20 MG TAB 3 tabs today, then 1 tab twice daily for 3 day, then one daily for three days PREDNISONE 83097734685 No Longer Active Harinder Hernandez DO Active NIFEDIAC CC 30 MG [id number] 1 tablet daily for raynaud's syndrome NIFEDIPINE 79818006897 No Longer Active Tawnya Pardo MA Active AMBIEN 10 MG TAB 1/2 tab by mouth at bedtime as needed for sleep ZOLPIDEM TARTRATE 08371229030 Active Harinder Hernandez DO Active CLONAZEPAM 1 MG TABS 1 tablet at bedtime for insomnia and restless legs 09/14 CLONAZEPAM 50176781626 Active Harinder Hernandez DO Active CLONAZEPAM 0.5 MG TABS 1 tab po daily CLONAZEPAM 57093952934 No Longer Active Harinder Hernandez DO Active PREDNISONE 10 MG TAB 1 tablet daily for COPD PREDNISONE 78428002986 Active Tawnya Pardo MA Active PROAIR HFA 108 (90 BASE) MCG/ACT AERS 2 puffs four times a day as needed 2012 ALBUTEROL SULFATE 04390714576 Active Tawnya Pardo MA Active FLOVENT HFA 110 MCG/ACT AERO 2 puffs inhaled b.i.d. FLUTICASONE PROPIONATE HFA 54848032030 Active Tawnya Pardo MA Active EPIPEN 0.3 MG/0.3ML URIEL DIRECTED EPINEPHRINE Active Jeri Sosa RPT,RMA Active ACIPHEX 20 MG TBEC 1 tab po daily RABEPRAZOLE SODIUM 33632688244 Active Tawnya Pardo MA Active CLONAZEPAM 0.5 MG TABS 1 tab po daily CLONAZEPAM 0.5 MG TABS 660797 CLONAZEPAM Inactive PREDNISONE 20 MG TAB 3 tabs today, then 1 tab twice daily for 3 day, then one daily for three days PREDNISONE 20 MG TAB 369004 PREDNISONE Inactive PREDNISONE 20 MG TAB 2 tabs daily for 4 days, 1 tab daily for 4 days, 1/2 tab daily for 4 days PREDNISONE 20 MG TAB 453292 PREDNISONE Inactive PREDNISONE 10 MG TABS 1 tab po daily PREDNISONE 10 MG TABS 289821 PREDNISONE Inactive TYLENOL EXTRA STRENGTH 500 MG TABS as needed TYLENOL EXTRA STRENGTH 500 MG TABS 566424 ACETAMINOPHEN Inactive MUPIROCIN 2 % OINT apply to affected area BID x 14 days MUPIROCIN 2 % OINT 645424 MUPIROCIN Inactive MONTELUKAST SODIUM 10 MG TABS 1 tab po in the evening MONTELUKAST SODIUM 10 MG TABS 20010818 MONTELUKAST SODIUM Inactive BENZONATATE 100 MG CAPS 1 cap po TID PRN BENZONATATE 100 MG CAPS 363376 BENZONATATE Inactive NEURONTIN 300 MG CAP 1 cap by mouth three times daily for restless leg 06/22 NEURONTIN 300 MG CAP 497701 GABAPENTIN Inactive LEVAQUIN 500 MG TAB 1 tablet by mouth daily LEVAQUIN 500 MG TAB 325524 LEVOFLOXACIN Inactive PREDNISONE 20 MG TAB 1 TID x 2 days, then 1 BID x 3 days, then 1 Daily x 3 days, then stop PREDNISONE 20 MG TAB 437982 PREDNISONE Inactive POTASSIUM CHLORIDE ER 10 MEQ CR-TABS take 1 tab po daily POTASSIUM CHLORIDE ER 10 MEQ CR-TABS POTASSIUM CHLORIDE Inactive PREDNISONE 20 MG TAB 1 tab twice daily for 3 day, then one daily for three days PREDNISONE 20 MG TAB 058048 PREDNISONE Inactive TESSALON PERLES 100 MG CAP 1 to 2 tablets by mouth 3 times daily as needed for cough TESSALON PERLES 100 MG CAP 341217 BENZONATATE Inactive POTASSIUM CHLORIDE CR 10 MEQ [...] nightly for cholesterol LOVASTATIN 40 MG TABS 474545 LOVASTATIN Inactive CEFDINIR 300 MG ORAL CAPS take 1 cap po bid x 10 days CEFDINIR 300 MG ORAL CAPS 158575 CEFDINIR Inactive ACEBUTOLOL HCL 200 MG CAPS 1 cap in the morning and 2 caps in the evening ACEBUTOLOL HCL 200 MG CAPS 940657 ACEBUTOLOL HCL Inactive VENTOLIN HFA 108 (90 BASE) MCG/ACT AERS 2 -4 puffs four times a day PRN 2013 VENTOLIN HFA 108 (90 BASE) MCG/ACT AERS ALBUTEROL SULFATE Inactive LEVAQUIN 500 MG ORAL TABS Take 1 tab po daily x 8 days LEVAQUIN 500 MG ORAL TABS 037514 LEVOFLOXACIN Inactive PREDNISONE 20 MG TAB 2 tabs daily for 4 days, 1 tab daily for 4 days, 1/2 tab daily for 4 days PREDNISONE 20 MG TAB 534615 PREDNISONE Inactive LOVASTATIN 40 MG ORAL TABS Take 1 tab po every hs LOVASTATIN 40 MG ORAL TABS 910629 LOVASTATIN Inactive DILAUDID 2 MG ORAL TABS Take 1/2 tab po every 4 hours as needed for pain 2014 DILAUDID 2 MG ORAL TABS 031730 HYDROMORPHONE HCL Inactive AMITRIPTYLINE HCL 25 MG ORAL TABS 1 q hs prn AMITRIPTYLINE HCL 25 MG ORAL TABS 207025 AMITRIPTYLINE HCL Inactive MECLIZINE HCL 25 MG TAB 1 tablet three times daily for 3 days, then 1/2 tab three times daily for 3 days. MECLIZINE HCL 25 MG TAB 120994 MECLIZINE HCL Inactive AMLODIPINE BESYLATE 5 MG ORAL TABS Take 1 tab po daily AMLODIPINE BESYLATE 5 MG ORAL TABS 113457 AMLODIPINE BESYLATE Inactive TOPIRAMATE 25 MG TABS 1 tab po BID TOPIRAMATE 25 MG TABS 928394 TOPIRAMATE Inactive AZITHROMYCIN 250 MG TABS 2 po qd x 1 day, then 1 po qd x 4 days AZITHROMYCIN 250 MG TABS 8308226 AZITHROMYCIN Inactive AZITHROMYCIN 250 MG TABS 2 po qd x 1 day, then 1 po qd x 4 days AZITHROMYCIN 250 MG TABS 3039684 AZITHROMYCIN Inactive PREDNISONE 20 MG TAB 2 po qd x 5 days PREDNISONE 20 MG TAB 722879 PREDNISONE Inactive Vital Signs Date Name Value [...] E&M - 3141-9 134.2 [lb_av] Weight Measured Diagnostic Results Date Name Value Unit Range Description Lab Report: Basic Metabolic Panel - Chemistry sodium, serum 138 mmol/L 085-102 8567/09/24 potassium, serum 3.5 mmol/L 3.5-5.2 chloride, serum [...] 142-424 Encounters Code Encounter Date Provider Facility CPT-47102 Level 3 Est. Patient 18:37:17 CDT Harinder Cr [facility] CPT-52233 Level 4 Est. Patient 11:15:54 CDT Nettie Newberry [facility] CPT-39483 Level 3 Est. Patient 16:42:24 CDT Harinder Cr [facility] CPT-69125 Level 3 Est. Patient 15:03:36 CDT Harinder Cr [facility] CPT-80878 Level 3 Est. Patient 15:03:20 CDT Harinder Cr [facility] CPT-93778 Level 3 Est. Patient 12:14:34 CDT Harinder Cr [facility] CPT-70946 Level 3 Est. Patient 13:47:15 CDT Harinder Cr [facility] CPT-87981 Level 3 Est. Patient 14:08:24 CDT Harinder Cr [facility] CPT-46106 Level 3 Est. Patient 10:07:15 CDT Harinder Hernandez [facility] CPT-37544 Level 3 Est. Patient 10:06:59 CDT Harinder Hernandez [facility] CPT-39998 Level 3 Est. Patient 15:53:29 CDT Jae Morgan MD [facility] CPT-79927 Level 3 Est. Patient 17:19:04 CDT Harinder Hernandez [facility] CPT-73011 Level 3 Est. Patient 11:13:01 CDT Harinder Hernandez [facility] CPT-84765 Level 3 Est. Patient 09:03:58 CDT Harinder Hernandez [facility] CPT-89829 Level 3 Est. Patient 14:46:45 [employer] Harinder Hernandez [facility] CPT-50927 Level 3 Est. Patient 09:35:49 [employer] Harinder Cr David [facility] CPT-52631 Level 3 Est. Patient 09:29:37 [employer] Harinder Hernandez [facility] CPT-75674 Level 3 Est. Patient 15:51:07 CDT Harinder Hernandez [facility] CPT-50671 Level 3 Est. Patient 18:13:13 CDT Harinder Hernandez [facility] CPT-69489 Level 3 Est. Patient 10:44:19 CDT Harinder Hernandez [facility] CPT-25389 Level 4 Est. Patient 10:07:19 [employer] Harinder Shaye [facility] CPT-40647 Level 3 Est. Patient 15:59:32 [employer] Harinder Hernandez [facility] Procedures Code Procedure Name Date Entry Date Standard Description CPT-JTINJ Asp/Joint Injection 18:38:04 CDT CPT-54288 Immunization Each Additional Inj 17:38:04 CDT CPT-91617 Immunization Single Admin 17:38:04 CDT CPT-94005 Prevnar 13 17:38:04 CDT CPT-22789 Fluzone Quadrivalent preservative free (>=3yrs.) 17:38: 04 CDT CPT-47185 No Charge Offi Visit 11:14:03 CDT CPT-87725 Chest 2V Frontal and Lat 14:00:18 CDT CPT-OV Office Visit 16:10:28 CDT CPT-JTINJ Asp/Joint Injection 09:03:57 CDT CPT-Cryo Cryotherapy 09:35:49 [employer] CPT-JTINJ Asp/Joint Injection 09:34:45 [employer] CPT-J2930 Solu Medrol 125 mg (Methyl Prednisolone Sodium Succinate) 20:37:27 CDT CPT-58178 Abx/Therapy Injection 20:37:27 CDT CPT-14929 Port a cath flush 08:15:51 CDT CPT-09301 Port a cath flush 09:54:16 CDT CPT-43717 Port a cath flush 09:38:02 CDT CPT-23512 Port a cath flush 11:00:27 [employer]ER
--- OUTSIDE RECORDS SUMMARY | 2017-12-29 06:11 | XMS REPORT | Clinical Summary ---
Author Author Admin, QIE Organization [facility] [place] Address Unknown Phone Unavailable Allergies, Adverse Reactions, [...] right lower quadrant 789.03 Resolved Harinder Cr Dvaid DO Abdominal pain, right lower quadrant Needs [...] 4hrs PRN Wheezing Dx: J44.1 ALBUTEROL SULFATE 77926220692 Active Kortney Mccain Active AMLODIPINE BESYLATE 5 MG TABS 1 tablet by mouth daily AMLODIPINE BESYLATE 72832141137 Active Harinder Hernandez DO Active NIFEDIPINE ER 30 MG ORAL [id number] 1 daily NIFEDIPINE 32112081299 No Longer Active Harinder Hernandez DO Active POTASSIUM CHLORIDE 20 MEQ ORAL PACK Take 1 tablet by mouth daily POTASSIUM CHLORIDE 32142368181 Active Ciera Pimentel Active FLOVENT HFA 110 MCG/ACT AERO 2 puffs inhaled b.i.d. FLUTICASONE PROPIONATE HFA 17732170094 Active Harinder Hernandez DO Active POTASSIUM CHLORIDE CR 10 MEQ CPCR 1 capsule by mouth daily POTASSIUM CHLORIDE 91418280982 Active Harinder Hernandez DO Active EPIPEN 2-BRUNA 0.3 MG/0.3ML INJ SOAJ 1 INJ NEEDED EPINEPHRINE 13237974261 Active Harinder Hernandez DO Active PREDNISONE 20 MG TAB 1 tab twice daily for 3 day, then one daily for three days PREDNISONE 68593960205 No Longer Active Harinder Hernandez DO Active PREDNISONE 20 MG TAB 1 tablet twice daily for 2 days, then 1 tablet once daily for 2 days PREDNISONE 33745339245 No Longer Active Harinder Hernandez DO Active ASMANEX 120 METERED DOSES 220 MCG/INH INH AEPB 2 puffs orally twice daily MOMETASONE FUROATE 78220551650 Active Jeri Sosa RPT,RMA Active TOPIRAMATE 25 MG TABS 1 tab po BID TOPIRAMATE 81552578174 No Longer Active Nettie Newberry APRN Active AMLODIPINE BESYLATE 5 MG ORAL TABS Take 1 tab po daily AMLODIPINE BESYLATE 88065711023 No Longer Active Nettie Newberry MAHENDRA Active MECLIZINE HCL 25 MG TAB 1 tablet three times daily for 3 days, then 1/2 tab three times daily for 3 days. MECLIZINE HCL 18075565580 No Longer Active Nettie Newberry MAHENDRA Active AMITRIPTYLINE HCL 25 MG ORAL TABS 1 q hs prn AMITRIPTYLINE HCL 43158438147 No Longer Active Nettie Newberry MAHENDRA Active DILAUDID 2 MG ORAL TABS Take 1/2 tab po every 4 hours as needed for pain 2014 HYDROMORPHONE HCL 08035084700 No Longer Active Nettie Newberry MAHENDRA Active CLOPIDOGREL BISULFATE 75 MG ORAL TABS 1 tab by mouth once daily CLOPIDOGREL BISULFATE 49311821862 Active Tawnya Pardo MA Active ATORVASTATIN CALCIUM 10 MG ORAL TABS 1 at bedtime ATORVASTATIN CALCIUM 35419845220 Active Tawnya Pardo MA Active LOVASTATIN 40 MG ORAL TABS Take 1 tab po every hs LOVASTATIN 89549308741 No Longer Active Harinder Hernandez DO Active PREDNISONE 20 MG TAB 2 tabs daily for 4 days, 1 tab daily for 4 days, 1/2 tab daily for 4 days PREDNISONE 62398413323 No Longer Active Harinder Hernandez DO Active LEVAQUIN 500 MG ORAL TABS Take 1 tab po daily x 8 days LEVOFLOXACIN 21686371561 No Longer Active Harinder Hernandez DO Active VENTOLIN HFA 108 (90 BASE) MCG/ACT AERS 2 -4 puffs four times a day PRN 2013 ALBUTEROL SULFATE 51276994923 No Longer Active Jeri Sosa RPT,RMA Active ACEBUTOLOL HCL 200 MG CAPS 1 cap in the morning and 2 caps in the evening ACEBUTOLOL HCL 98368807152 No Longer Active Harinder Hernandez DO Active CEFDINIR 300 MG ORAL CAPS take 1 cap po bid x 10 days CEFDINIR 16549676692 No Longer Active Harinder Hernandez DO Active LOVASTATIN 40 MG TABS 1 pill by mouth nightly for cholesterol LOVASTATIN 96291909436 No Longer Active Nettie Newberry APRN Active NITROSTAT 0.4 MG SUBL 1 tab under tongueas needed for chest pain ( may take 3 total, 5 min apart, then call 911) NITROGLYCERIN 33815361264 No Longer Active Nettie Newberry APRN Active POTASSIUM CHLORIDE CR 10 MEQ CPCR 1 capsule by mouth daily 02/14 POTASSIUM CHLORIDE 35841468452 No Longer Active Nettie Newberry APRN Active TESSALON PERLES 100 MG CAP 1 to 2 tablets by mouth 3 times daily as needed for cough BENZONATATE 03657421193 No Longer Active Nettie Newberry APRN Active THEOPHYLLINE ER 200 MG ORAL [id number] Take 1 tab every 12 hours THEOPHYLLINE 19643584858 Active Tawnya Pardo MA Active PREDNISONE 20 MG TAB 2 po qd x 5 days PREDNISONE 34814244678 No Longer Active Jae Morgan MD Active AZITHROMYCIN 250 MG TABS 2 po qd x 1 day, then 1 po qd x 4 days AZITHROMYCIN 48388657899 No Longer Active Jae Morgan MD Active PREDNISONE 20 MG TAB 1 tab twice daily for 3 day, then one daily for three days PREDNISONE 49764992363 No Longer Active Jae Morgan MD Active SINGULAIR 10 MG TABS 1 pill by mouth every evening for breathing. MONTELUKAST SODIUM 15925444575 Active Tawnya Pardo MA Active TYLENOL 325 MG TAB 3 by mouth q4h as needed ACETAMINOPHEN 01793943176 Active Harinder Hernandez DO Active POTASSIUM CHLORIDE ER 10 MEQ CR-TABS take 1 tab po daily POTASSIUM CHLORIDE 67580007547 No Longer Active Harinder Hernandez DO Active PREDNISONE 20 MG TAB 1 TID x 2 days, then 1 BID x 3 days, then 1 Daily x 3 days, then stop PREDNISONE 79803406179 No Longer Active Jillina Frazell [employer] AND [employer]ISK ANALYSIS MANAGER Active LEVAQUIN 500 MG TAB 1 tablet by mouth daily LEVOFLOXACIN 12583150513 No Longer Active Jillina Frazell [employer] AND RISK ANALYSIS MANAGER Active NEURONTIN 300 MG CAP 1 cap by mouth three times daily for restless leg 06/22 GABAPENTIN 44191952902 No Longer Active Harinder Hernandez DO Active BENZONATATE 100 MG CAPS 1 cap po TID PRN BENZONATATE 57909809937 No Longer Active Harinder Hernandez DO Active MONTELUKAST SODIUM 10 MG TABS 1 tab po in the evening MONTELUKAST SODIUM 13453401264 No Longer Active Harinder Hernandez DO Active MUPIROCIN 2 % OINT apply to affected area BID x 14 days MUPIROCIN 38964133457 No Longer Active Harinder Hernandez DO Active TYLENOL EXTRA STRENGTH 500 MG TABS as needed ACETAMINOPHEN 81571006802 No Longer Active Harinder Hernandez DO Active PREDNISONE 10 MG TABS 1 tab po daily PREDNISONE 19285271812 No Longer Active Harinder Hernandez DO Active PREDNISONE 20 MG TAB 2 tabs daily for 4 days, 1 tab daily for 4 days, 1/2 tab daily for 4 days PREDNISONE 48806254053 No Longer Active Harindre Hernandez DO Active AZITHROMYCIN 250 MG TABS 2 po qd x 1 day, then 1 po qd x 4 days AZITHROMYCIN 21376666772 No Longer Active Harinder Hernandez DO Active PREDNISONE 20 MG TAB 3 tabs today, then 1 tab twice daily for 3 day, then one daily for three days PREDNISONE 62178466936 No Longer Active Harinder Hernandez DO Active NIFEDIAC CC 30 MG [id number] 1 tablet daily for raynaud's syndrome NIFEDIPINE 81564379861 No Longer Active Tawnya Pardo MA Active AMBIEN 10 MG TAB 1/2 tab by mouth at bedtime as needed for sleep ZOLPIDEM TARTRATE 26226523526 Active Harinder Hernandez DO Active CLONAZEPAM 1 MG TABS 1 tablet at bedtime for insomnia and restless legs 09/14 CLONAZEPAM 87520486645 Active Harinder Hernandez DO Active CLONAZEPAM 0.5 MG TABS 1 tab po daily CLONAZEPAM 08212194198 No Longer Active Harinder Hernandez DO Active PREDNISONE 10 MG TAB 1 tablet daily for COPD PREDNISONE 70200208764 Active Tawnya Pardo MA Active PROAIR HFA 108 (90 BASE) MCG/ACT AERS 2 puffs four times a day as needed 2012 ALBUTEROL SULFATE 15441930727 Active Tawnya Pardo MA Active FLOVENT HFA 110 MCG/ACT AERO 2 puffs inhaled b.i.d. FLUTICASONE PROPIONATE HFA 88173609743 Active Kortney Mccain Active ACIPHEX 20 MG TBEC 1 tab po daily RABEPRAZOLE SODIUM 09173053789 Active Kaylah Newberry Active CLONAZEPAM 0.5 MG TABS 1 tab po daily CLONAZEPAM 0.5 MG TABS 839761 CLONAZEPAM Inactive PREDNISONE 20 MG TAB 3 tabs today, then 1 tab twice daily for 3 day, then one daily for three days PREDNISONE 20 MG TAB 462141 PREDNISONE Inactive PREDNISONE 20 MG TAB 2 tabs daily for 4 days, 1 tab daily for 4 days, 1/2 tab daily for 4 days PREDNISONE 20 MG TAB 533288 PREDNISONE Inactive PREDNISONE 10 MG TABS 1 tab po daily PREDNISONE 10 MG TABS 243145 PREDNISONE Inactive TYLENOL EXTRA STRENGTH 500 MG TABS as needed TYLENOL EXTRA STRENGTH 500 MG TABS 393569 ACETAMINOPHEN Inactive MUPIROCIN 2 % OINT apply to affected area BID x 14 days MUPIROCIN 2 % OINT 742217 MUPIROCIN Inactive MONTELUKAST SODIUM 10 MG TABS 1 tab po in the evening MONTELUKAST SODIUM 10 MG TABS 20010818 MONTELUKAST SODIUM Inactive BENZONATATE 100 MG CAPS 1 cap po TID PRN BENZONATATE 100 MG CAPS 19730321 BENZONATATE Inactive NEURONTIN 300 MG CAP 1 cap by mouth three times daily for restless leg 06/22 NEURONTIN 300 MG CAP 250829 GABAPENTIN Inactive LEVAQUIN 500 MG TAB 1 tablet by mouth daily LEVAQUIN 500 MG TAB 113440 LEVOFLOXACIN Inactive PREDNISONE 20 MG TAB 1 TID x 2 days, then 1 BID x 3 days, then 1 Daily x 3 days, then stop PREDNISONE 20 MG TAB 566834 PREDNISONE Inactive POTASSIUM CHLORIDE ER 10 MEQ CR-TABS take 1 tab po daily POTASSIUM CHLORIDE ER 10 MEQ CR-TABS POTASSIUM CHLORIDE Inactive PREDNISONE 20 MG TAB 1 tab twice daily for 3 day, then one daily for three days PREDNISONE 20 MG TAB 987752 PREDNISONE Inactive TESSALON PERLES 100 MG CAP [...] then call 911) NITROSTAT 0.4 MG SUBL 837113 NITROGLYCERIN Inactive LOVASTATIN 40 MG TABS 1 pill by mouth nightly for cholesterol LOVASTATIN 40 MG TABS 201169 LOVASTATIN Inactive CEFDINIR 300 MG ORAL CAPS take 1 cap po bid x 10 days CEFDINIR 300 MG ORAL CAPS 20021018 CEFDINIR Inactive ACEBUTOLOL HCL 200 MG CAPS 1 cap in the morning and 2 caps in the evening ACEBUTOLOL HCL 200 MG CAPS 706840 ACEBUTOLOL HCL Inactive VENTOLIN HFA 108 (90 BASE) MCG/ACT AERS 2 -4 puffs four times a day PRN 2013 VENTOLIN HFA 108 (90 BASE) MCG/ACT AERS ALBUTEROL SULFATE Inactive LEVAQUIN 500 MG ORAL TABS Take 1 tab po daily x 8 days LEVAQUIN 500 MG ORAL TABS 116666 LEVOFLOXACIN Inactive PREDNISONE 20 MG TAB 2 tabs daily for 4 days, 1 tab daily for 4 days, 1/2 tab daily for 4 days PREDNISONE 20 MG TAB 688083 PREDNISONE Inactive LOVASTATIN 40 MG ORAL TABS Take 1 tab po every hs LOVASTATIN 40 MG ORAL TABS 745015 LOVASTATIN Inactive DILAUDID 2 MG ORAL TABS Take 1/2 tab po every 4 hours as needed for pain 2014 DILAUDID 2 MG ORAL TABS 852405 HYDROMORPHONE HCL Inactive AMITRIPTYLINE HCL 25 MG ORAL TABS 1 q hs prn AMITRIPTYLINE HCL 25 MG ORAL TABS 623299 AMITRIPTYLINE HCL Inactive MECLIZINE HCL 25 MG TAB 1 tablet three times daily for 3 days, then 1/2 tab three times daily for 3 days. MECLIZINE HCL 25 MG TAB 893412 MECLIZINE HCL Inactive AMLODIPINE BESYLATE 5 MG ORAL TABS Take 1 tab po daily AMLODIPINE BESYLATE 5 MG ORAL TABS 452934 AMLODIPINE BESYLATE Inactive TOPIRAMATE 25 MG TABS 1 tab po BID TOPIRAMATE 25 MG TABS 741008 TOPIRAMATE Inactive PREDNISONE 20 MG TAB 1 tablet twice daily for 2 days, then 1 tablet once daily for 2 days PREDNISONE 20 MG TAB 246410 PREDNISONE Inactive PREDNISONE 20 MG TAB 1 tab twice daily for 3 day, then one daily for three days PREDNISONE 20 MG TAB 585243 PREDNISONE Inactive NIFEDIPINE ER 30 MG ORAL [id number] 1 daily NIFEDIPINE ER 30 MG ORAL [id number] NIFEDIPINE Inactive AZITHROMYCIN 250 MG TABS 2 po qd x 1 day, then 1 po qd x 4 days AZITHROMYCIN 250 MG TABS 8750341 AZITHROMYCIN Inactive AZITHROMYCIN 250 MG TABS 2 po qd x 1 day, then 1 po qd x 4 days AZITHROMYCIN 250 MG TABS 9967334 AZITHROMYCIN Inactive PREDNISONE 20 MG TAB 2 po qd x 5 days PREDNISONE 20 MG TAB 063465 PREDNISONE Inactive Vital Signs Date Name Value [...] Panel - Chemistry sodium, serum 137 mmol/L 063-427 0573/01/03 potassium, serum 3.4 mmol/L 3.5-5.2 chloride, serum [...] Magnesium - Chemistry cholesterol, serum 180 mg/dL 788-033 6794/08/08 triglyceride, serum, fasting 92 mg/dL 30-200 HDL cholesterol, serum 66 mg/dL 32-96 LDL cholesterol, serum 96 mg/dL 0-130 sodium, serum 142 mmol/L 517-894 2642/08/08 carbon dioxide, venous blood 27.4 mmol/L 21.0-32.0 [...] 10.0-20.0 Encounters Code Encounter Date Provider Facility CPT-45147 Level 3 Est. Patient 09:58:58 CDT Harinder Cr [facility] CPT-19718 Level 3 Est. Patient 12:37:21 CDT Harinder Cr [facility] CPT-63596 Level 3 Est. Patient 18:37:[address] [facility] CPT-35482 Level 4 Est. Patient 11:15:54 CDT Nettie Newberry [facility] CPT-55414 Level 3 Est. Patient 16:42:24 CDT Harinder Cr [facility] CPT-74188 Level 3 Est. Patient 15:03:36 CDT Harinder Cr [facility] CPT-50006 Level 3 Est. Patient 15:03:20 CDT Harinder Cr [facility] CPT-35782 Level 3 Est. Patient 12:14:34 CDT Harinder Cr [facility] CPT-61056 Level 3 Est. Patient 13:47:15 CDT Harinder Cr [facility] CPT-81542 Level 3 Est. Patient 14:08:24 CDT Harinder Hernandez [facility] CPT-72306 Level 3 Est. Patient 10:07:15 CDT Harinder Hernandez [facility] CPT-28260 Level 3 Est. Patient 10:06:59 CDT Harinder Hernandez [facility] CPT-89670 Level 3 Est. Patient 15:53:29 CDT Jae Morgan MD [facility] CPT-67642 Level 3 Est. Patient 17:19:04 CDT Harinder Hernandez [facility] CPT-62192 Level 3 Est. Patient 11:13:01 CDT Harinder Hernandez [facility] CPT-34415 Level 3 Est. Patient 09:03:58 CDT Harinder Hernandez [facility] CPT-15341 Level 3 Est. Patient 14:46:45 COMMERCIAL UNDERWRITER Harinder Hernandez [facility] CPT-33209 Level 3 Est. Patient 09:35:49 COMMERCIAL UNDERWRITER Harinder Hernandez [facility] CPT-91812 Level 3 Est. Patient 09:29:37 COMMERCIAL UNDERWRITER Harinder Hernandez [facility] CPT-80448 Level 3 Est. Patient 15:51:07 CDT Harinder Hernandez [facility] CPT-16604 Level 3 Est. Patient 18:13:13 CDT Harinder Hernandez [facility] CPT-67560 Level 3 Est. Patient 10:44:19 CDT Harinder Henrandez [facility] CPT-31371 Level 4 Est. Patient 10:07:19 COMMERCIAL UNDERWRITER Harinder Hernandez [facility] CPT-34335 Level 3 Est. Patient 15:59:32 COMMERCIAL UNDERWRITER Harinder Cr [facility] Procedures Code Procedure Name Date Entry Date Standard Description CPT-72359 BMP - LAB USE ONLY 16:45:09 COMMERCIAL UNDERWRITER CPT-46541 Port a cath flush 12:00:13 COMMERCIAL UNDERWRITER CPT-TCMM Transitional Care Mgmt-Moderate 11:20:16 COMMERCIAL UNDERWRITER CPT-30776 First Vx - Ix admin for Medicare patients 17:35:15 CDT CPT-31520 Fluzone Preservative Free Intramuscular Suspension 17:35 :15 CDT CPT-65612 Microalbumin - LAB USE ONLY 11:52:05 CDT CPT-TCMM Transitional Care Mgmt-Moderate 11:33:57 CDT CPT-54275 No Charge Offi Visit 14:11:29 CDT CPT-73337 Magnesium - LAB USE ONLY 10:45:44 CDT CPT-48522 Lipid - LAB USE ONLY 10:45:44 CDT CPT-39844 CBC - LAB USE ONLY 10:45:44 CDT CPT-86460 Venipuncture Draw Fee 10:45:43 CDT CPT-79248 Venipuncture Draw Fee 18:21:27 CDT CPT-JTINJ Asp/Joint Injection 18:38:04 CDT CPT-19515 Immunization Each Additional Inj 17:38:04 CDT CPT-40654 Immunization Single Admin 17:38:04 CDT CPT-61026 Prevnar 13 17:38:04 CDT CPT-09998 Fluzone Quadrivalent preservative free (>=3yrs.) 17:38: 04 CDT CPT-69083 No Charge Offi Visit 11:14:03 CDT CPT-41384 Chest 2V Frontal and Lat 14:00:18 CDT CPT-OV Office Visit 16:10:28 CDT CPT-JTINJ Asp/Joint Injection 09:03:57 CDT CPT-Cryo Cryotherapy 09:35:49 COMMERCIAL UNDERWRITER CPT-JTINJ Asp/Joint Injection 09:34:45 COMMERCIAL UNDERWRITER CPT-J2930 Solu Medrol 125 mg (Methyl Prednisolone Sodium Succinate) 20:37:27 CDT CPT-08941 Abx/Therapy Injection 20:37:27 CDT CPT-18362 Port a cath flush 08:15:51 CDT CPT-28493 Port a cath flush 09:54:16 CDT CPT-88332 Port a cath flush 09:38:02 CDT CPT-19324 Port a cath flush 11:00:27 COMMERCIAL UNDERWRITER
--- OUTSIDE RECORDS SUMMARY | 2017-12-29 06:13 | XMS REPORT | Clinical Summary ---
Author Author Admin, QIE Organization [facility] [employer] Address Unknown Phone Unavailable Allergies, Adverse Reactions, [...] right lower quadrant 789.03 Resolved Harinder Cr Daivd DO Abdominal pain, right lower quadrant Needs [...] RELEASE 12 HOUR 1 po BID THEOPHYLLINE 98814822646 Active Kortney Mccain Active POTASSIUM CHLORIDE ER 20 MEQ ORAL TABLET EXTENDED RELEASE 1 po q day POTASSIUM CHLORIDE 95883238169 Active Kortney Mccain Active POTASSIUM CHLORIDE 20 MEQ ORAL PACKET 1 tab po q day POTASSIUM CHLORIDE 34014569090 No Longer Active Kortney Mccain Active POTASSIUM CHLORIDE ER 10 MEQ ORAL CAPSULE EXTENDED RELEASE 1 capsule BID 2016 POTASSIUM CHLORIDE 52707175792 No Longer Active Kortney Mccain Active LASIX 20 MG ORAL TABLET 1 tablet by mouth every morning FUROSEMIDE 37203520958 No Longer Active Kortney Mccain Active SPIRONOLACTONE 25 MG ORAL TABLET 1 tablet by mouth daily SPIRONOLACTONE 22981809924 Active Kortney Mccain Active FLUOXETINE HCL 10 MG ORAL CAPSULE 1 po qd for depression/anxiety FLUOXETINE HCL 57355861615 Active Harinder Hernandez DO Active VOLTAREN 1 % TRANSDERMAL GEL apply q 6-8 hour to left arm as needed for pain DICLOFENAC SODIUM 77799445256 Active Kortney Mccain Active ALBUTEROL SULFATE (2.5 MG/3ML) 0.083% INHALATION NEBULIZATION SOLUTION 1 vial neb q 4hrs for severe asthma. 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 NIFEDIPINE 74248507521 Active Kortney Mccain Active AMLODIPINE BESYLATE 5 MG ORAL TABLET 1 tablet by mouth daily 2016 AMLODIPINE BESYLATE 20879584440 No Longer Active Harinder Hernandez DO Active TOPAMAX 25 MG ORAL TABLET 1 tab po BID TOPIRAMATE 23275647600 Active Kortney Mccain Active FLUTICASONE PROPIONATE 50 MCG/ACT NASAL SUSPENSION 2 sprays per nostril daily PRN Allergies FLUTICASONE PROPIONATE 37582332543 Active Kortney Mccain Active NIFEDIPINE ER 30 MG ORAL TABLET EXTENDED RELEASE 24 HOUR 1 daily NIFEDIPINE 12366805328 No Longer Active Harinder Hernandez DO Active FLOVENT HFA 110 MCG/ACT INHALATION AEROSOL 2 puffs inhaled b.i.d. FLUTICASONE PROPIONATE HFA 31716881748 Active Harindre Hernandez DO Active EPIPEN 2-BRUNA 0.3 MG/0.3ML INJECTION SOLUTION AUTO-INJECTOR 1 INJ NEEDED EPINEPHRINE 11246117875 Active Kortney Mccain Active PREDNISONE 20 MG ORAL TABLET 1 tab twice daily for 3 day, then one daily for three days PREDNISONE 18873849682 No Longer Active Harinder Hernandez DO Active PREDNISONE 20 MG ORAL TABLET 1 tablet twice daily for 2 days, then 1 tablet once daily for 2 days PREDNISONE 12178130717 No Longer Active Harinder Hernandez DO Active ASMANEX 120 METERED DOSES 220 MCG/INH INHALATION AEROSOL POWDER BREATH ACTIVATED 2 puffs orally twice daily MOMETASONE FUROATE 34739830933 Active Jeri Sosa LPN Active TOPIRAMATE 25 MG ORAL TABLET 1 tab po BID TOPIRAMATE 86663130883 No Longer Active Nettie Newberry MAHENDRA Active AMLODIPINE BESYLATE 5 MG ORAL TABLET Take 1 tab po daily AMLODIPINE BESYLATE 82184726785 No Longer Active Nettie Newberry MAHENDRA Active MECLIZINE HCL 25 MG ORAL TABLET 1 tablet three times daily for 3 days, then 1/ 2 tab three times daily for 3 days. MECLIZINE HCL 79288087504 No Longer Active Nettie Newberry MAHENDRA Active AMITRIPTYLINE HCL 25 MG ORAL TABLET 1 q hs prn AMITRIPTYLINE HCL 39712715867 No Longer Active Nettie Newberry MAHENDRA Active DILAUDID 2 MG ORAL TABLET Take 1/2 tab po every 4 hours as needed for pain HYDROMORPHONE HCL 54987892698 No Longer Active Nettie Rohith MAHENDRA Active CLOPIDOGREL BISULFATE 75 MG ORAL TABLET 1 tab by mouth once daily CLOPIDOGREL BISULFATE 98881968525 Active Harinder Hernandez DO Active ATORVASTATIN CALCIUM 10 MG ORAL TABLET 1 at bedtime ATORVASTATIN CALCIUM 36712624584 Active Kortney Mccain Active LOVASTATIN 40 MG ORAL TABLET Take 1 tab po every hs LOVASTATIN 76949306632 No Longer Active Harinder Hernandez DO Active PREDNISONE 20 MG ORAL TABLET 2 tabs daily for 4 days, 1 tab daily for 4 days, 1/2 tab daily for 4 days PREDNISONE 21136367133 No Longer Active Harinder Hernandez DO Active LEVAQUIN 500 MG ORAL TABLET Take 1 tab po daily x 8 days LEVOFLOXACIN 80289399781 No Longer Active Harinder Heranndez DO Active VENTOLIN HFA 108 (90 Base) MCG/ACT INHALATION AEROSOL SOLUTION 2 -4 puffs four times a day PRN ALBUTEROL SULFATE 36263836645 No Longer Active Jeri Sosa LPN Active ACEBUTOLOL HCL 200 MG ORAL CAPSULE 1 cap in the morning and 2 caps in the evening ACEBUTOLOL HCL 04620282307 No Longer Active Harinder Hernandez DO Active CEFDINIR 300 MG ORAL CAPSULE take 1 cap po bid x 10 days CEFDINIR 42440551542 No Longer Active Harinder Hernandez DO Active LOVASTATIN 40 MG ORAL TABLET 1 pill by mouth nightly for cholesterol LOVASTATIN 50496690665 No Longer Active Nettie Newberry APRN Active NITROSTAT 0.4 MG SUBLINGUAL TABLET SUBLINGUAL 1 tab under tongueas needed for chest pain ( may take 3 total, 5 min apart, then call 911) NITROGLYCERIN 52297080396 No Longer Active Nettie Newberry APRN Active POTASSIUM CHLORIDE ER 10 MEQ ORAL CAPSULE EXTENDED RELEASE 1 capsule by mouth daily POTASSIUM CHLORIDE 72611058032 No Longer Active Nettie Newberry APRN Active TESSALON PERLES 100 MG ORAL CAPSULE 1 to 2 tablets by mouth 3 times daily as needed for cough BENZONATATE 33403504220 No Longer Active Nettie Newberry APRN Active PREDNISONE 20 MG ORAL TABLET 2 po qd x 5 days PREDNISONE 88447361972 No Longer Active Jae Morgan MD Active AZITHROMYCIN 250 MG ORAL TABLET 2 po qd x 1 day, then 1 po qd x 4 days 12/30 AZITHROMYCIN 26138438993 No Longer Active Jae Morgan MD Active PREDNISONE 20 MG ORAL TABLET 1 tab twice daily for 3 day, then one daily for three days PREDNISONE 89219293525 No Longer Active Jae Morgan MD Active SINGULAIR 10 MG ORAL TABLET 1 pill by mouth every evening for breathing. 2014 MONTELUKAST SODIUM 87324856242 Active Kortney Mccain Active TYLENOL 325 MG ORAL TABLET 3 by mouth q4h as needed ACETAMINOPHEN 58532752090 Active Harinder Hernandez DO Active POTASSIUM CHLORIDE ER 10 MEQ ORAL TABLET EXTENDED RELEASE take 1 tab po daily POTASSIUM CHLORIDE 81809771591 No Longer Active Harinder Hernandez DO Active PREDNISONE 20 MG ORAL TABLET 1 TID x 2 days, then 1 BID x 3 days, then 1 Daily x 3 days, then stop PREDNISONE 06142203232 No Longer Active Jillkvng Frashai BRICEÑON Active LEVAQUIN 500 MG ORAL TABLET 1 tablet by mouth daily LEVOFLOXACIN 15277518642 No Longer Active Jillina Frazell ADDICTION THERAPIST Active NEURONTIN 300 MG ORAL CAPSULE 1 cap by mouth three times daily for restless leg GABAPENTIN 64127641854 No Longer Active Harinder Hernandez DO Active BENZONATATE 100 MG ORAL CAPSULE 1 cap po TID PRN BENZONATATE 83462592552 No Longer Active Harinder Hernandez DO Active MONTELUKAST SODIUM 10 MG ORAL TABLET 1 tab po in the evening 2014 MONTELUKAST SODIUM 15454423639 No Longer Active Harinder Hernandez DO Active MUPIROCIN 2 % EXTERNAL OINTMENT apply to affected area BID x 14 days MUPIROCIN 91589198784 No Longer Active Harinder Hernandez DO Active TYLENOL EXTRA STRENGTH 500 MG ORAL TABLET as needed ACETAMINOPHEN 45600457318 No Longer Active Harinder Hernandez DO Active PREDNISONE 10 MG ORAL TABLET 1 tab po daily PREDNISONE 62063956109 No Longer Active Harinder Hernandez DO Active PREDNISONE 20 MG ORAL TABLET 2 tabs daily for 4 days, 1 tab daily for 4 days, 1/2 tab daily for 4 days PREDNISONE 37729799618 No Longer Active Harinder Hernandez DO Active AZITHROMYCIN 250 MG ORAL TABLET 2 po qd x 1 day, then 1 po qd x 4 days 04/06 AZITHROMYCIN 23357314138 No Longer Active Harinder Hernandez DO Active PREDNISONE 20 MG ORAL TABLET 3 tabs today, then 1 tab twice daily for 3 day, then one daily for three days PREDNISONE 23413978310 No Longer Active Harinder Hernandez DO Active NIFEDIAC CC 30 MG ORAL TABLET EXTENDED RELEASE 24 HOUR 1 tablet daily for raynaud's syndrome NIFEDIPINE 00078340743 No Longer Active Tawnya Pardo MA Active AMBIEN 10 MG ORAL TABLET 1/2 tab by mouth at bedtime as needed for sleep 2013 ZOLPIDEM TARTRATE 50865620084 Active Kotrney Mccain Active CLONAZEPAM 1 MG ORAL TABLET 1 tablet at bedtime for insomnia and restless legs CLONAZEPAM 80317388086 Active Harinder Hernandez DO Active CLONAZEPAM 0.5 MG ORAL TABLET 1 tab po daily CLONAZEPAM 80055008759 No Longer Active Harinder Hernandez DO Active PREDNISONE 10 MG ORAL TABLET 1 tablet daily for COPD PREDNISONE 27483628507 Active Kortney Mccain Active PROAIR HFA 108 (90 Base) MCG/ACT INHALATION AEROSOL SOLUTION 2 puffs four times a day as needed ALBUTEROL SULFATE 20771275713 Active Harinder Hernandez DO Active FLOVENT HFA 110 MCG/ACT INHALATION AEROSOL 2 puffs inhaled b.i.d. FLUTICASONE PROPIONATE HFA 64644249994 Active Kortney Mccain Active ACIPHEX 20 MG ORAL TABLET DELAYED RELEASE 1 tab po daily RABEPRAZOLE SODIUM 38279162664 Active Kaylah Newberry Active CLONAZEPAM 0.5 MG ORAL TABLET 1 tab po daily CLONAZEPAM 0.5 MG ORAL TABLET 516372 CLONAZEPAM Inactive PREDNISONE 20 MG ORAL TABLET 3 tabs today, then 1 tab twice daily for 3 day, then one daily for three days PREDNISONE 20 MG ORAL TABLET 407908 PREDNISONE Inactive PREDNISONE 20 MG ORAL TABLET 2 tabs daily for 4 days, 1 tab daily for 4 days, 1/2 tab daily for 4 days PREDNISONE 20 MG ORAL TABLET 060825 PREDNISONE Inactive PREDNISONE 10 MG ORAL TABLET 1 tab po daily PREDNISONE 10 MG ORAL TABLET 996247 PREDNISONE Inactive TYLENOL EXTRA STRENGTH 500 MG ORAL TABLET as needed TYLENOL EXTRA STRENGTH 500 MG ORAL TABLET 967031 ACETAMINOPHEN Inactive MUPIROCIN 2 % EXTERNAL OINTMENT apply to affected area BID x 14 days MUPIROCIN 2 % EXTERNAL OINTMENT 135609 MUPIROCIN Inactive MONTELUKAST SODIUM 10 MG ORAL TABLET 1 tab po in the evening 2014 MONTELUKAST SODIUM 10 MG ORAL TABLET 20010818 MONTELUKAST SODIUM Inactive BENZONATATE 100 MG ORAL CAPSULE 1 cap po TID PRN BENZONATATE 100 MG ORAL CAPSULE 129884 BENZONATATE Inactive NEURONTIN 300 MG ORAL CAPSULE 1 cap by mouth three times daily for restless leg NEURONTIN 300 MG ORAL CAPSULE 670731 GABAPENTIN Inactive LEVAQUIN 500 MG ORAL TABLET 1 tablet by mouth daily LEVAQUIN 500 MG ORAL TABLET 550960 LEVOFLOXACIN Inactive PREDNISONE 20 MG ORAL TABLET 1 TID x 2 days, then 1 BID x 3 days, then 1 Daily x 3 days, then stop PREDNISONE 20 MG ORAL TABLET 767214 PREDNISONE Inactive POTASSIUM CHLORIDE ER 10 MEQ ORAL TABLET EXTENDED RELEASE take 1 tab po daily POTASSIUM CHLORIDE ER 10 MEQ ORAL TABLET EXTENDED RELEASE POTASSIUM CHLORIDE Inactive PREDNISONE 20 MG ORAL TABLET 1 tab twice daily for 3 day, then one daily for three days PREDNISONE 20 MG ORAL TABLET 079435 PREDNISONE Inactive TESSALON PERLES 100 MG ORAL CAPSULE 1 to 2 tablets by mouth 3 times daily as needed for cough TESSALON PERLES 100 MG ORAL CAPSULE 854201 BENZONATATE Inactive POTASSIUM CHLORIDE ER 10 MEQ ORAL CAPSULE EXTENDED RELEASE 1 capsule by mouth daily POTASSIUM CHLORIDE ER 10 MEQ ORAL CAPSULE EXTENDED RELEASE POTASSIUM CHLORIDE Inactive NITROSTAT 0.4 MG SUBLINGUAL TABLET SUBLINGUAL 1 tab under tongueas needed for chest pain ( may take 3 total, 5 min apart, then call 911) NITROSTAT 0.4 MG SUBLINGUAL TABLET SUBLINGUAL 450150 NITROGLYCERIN Inactive LOVASTATIN 40 MG ORAL TABLET 1 pill by mouth nightly for cholesterol LOVASTATIN 40 MG ORAL TABLET 688187 LOVASTATIN Inactive CEFDINIR 300 MG ORAL CAPSULE take 1 cap po bid x 10 days CEFDINIR 300 MG ORAL CAPSULE 902050 CEFDINIR Inactive ACEBUTOLOL HCL 200 MG ORAL CAPSULE 1 cap in the morning and 2 caps in the evening ACEBUTOLOL HCL 200 MG ORAL CAPSULE 354253 ACEBUTOLOL HCL Inactive VENTOLIN HFA 108 (90 Base) MCG/ACT INHALATION AEROSOL SOLUTION 2 -4 puffs four times a day PRN VENTOLIN HFA 108 (90 Base) MCG/ ACT INHALATION AEROSOL SOLUTION ALBUTEROL SULFATE Inactive LEVAQUIN 500 MG ORAL TABLET Take 1 tab po daily x 8 days LEVAQUIN 500 MG ORAL TABLET 326302 LEVOFLOXACIN Inactive PREDNISONE 20 MG ORAL TABLET 2 tabs daily for 4 days, 1 tab daily for 4 days, 1/2 tab daily for 4 days PREDNISONE 20 MG ORAL TABLET 882160 PREDNISONE Inactive LOVASTATIN 40 MG ORAL TABLET Take 1 tab po every hs LOVASTATIN 40 MG ORAL TABLET 343448 LOVASTATIN Inactive DILAUDID 2 MG ORAL TABLET Take 1/2 tab po every 4 hours as needed for pain DILAUDID 2 MG ORAL TABLET 590609 HYDROMORPHONE HCL Inactive AMITRIPTYLINE HCL 25 MG ORAL TABLET 1 q hs prn AMITRIPTYLINE HCL 25 MG ORAL TABLET 649550 AMITRIPTYLINE HCL Inactive MECLIZINE HCL 25 MG ORAL TABLET 1 tablet three times daily for 3 days, then 1/ 2 tab three times daily for 3 days. MECLIZINE HCL 25 MG ORAL TABLET 559206 MECLIZINE HCL Inactive AMLODIPINE BESYLATE 5 MG ORAL TABLET Take 1 tab po daily AMLODIPINE BESYLATE 5 MG ORAL TABLET 535992 AMLODIPINE BESYLATE Inactive TOPIRAMATE 25 MG ORAL TABLET 1 tab po BID TOPIRAMATE 25 MG ORAL TABLET 451561 TOPIRAMATE Inactive PREDNISONE 20 MG ORAL TABLET 1 tablet twice daily for 2 days, then 1 tablet once daily for 2 days PREDNISONE 20 MG ORAL TABLET 371592 PREDNISONE Inactive PREDNISONE 20 MG ORAL TABLET 1 tab twice daily for 3 day, then one daily for three days PREDNISONE 20 MG ORAL TABLET 459167 PREDNISONE Inactive NIFEDIPINE ER 30 MG ORAL TABLET EXTENDED RELEASE 24 HOUR 1 daily NIFEDIPINE ER 30 MG ORAL TABLET EXTENDED RELEASE 24 HOUR NIFEDIPINE Inactive AMLODIPINE BESYLATE 5 MG ORAL TABLET 1 tablet by mouth daily 2016 AMLODIPINE BESYLATE 5 MG ORAL TABLET 704595 AMLODIPINE BESYLATE Inactive LASIX 20 MG ORAL TABLET 1 tablet by mouth every morning LASIX 20 MG ORAL TABLET 712067 FUROSEMIDE Inactive POTASSIUM CHLORIDE ER 10 MEQ ORAL CAPSULE EXTENDED RELEASE 1 capsule BID 2016 POTASSIUM CHLORIDE ER 10 MEQ ORAL CAPSULE EXTENDED RELEASE POTASSIUM CHLORIDE Inactive POTASSIUM CHLORIDE 20 MEQ ORAL PACKET 1 tab po q day POTASSIUM CHLORIDE 20 MEQ ORAL PACKET 8572456 POTASSIUM CHLORIDE Inactive AZITHROMYCIN 250 MG ORAL TABLET 2 po qd x 1 day, then 1 po qd x 4 days 04/06 AZITHROMYCIN 250 MG ORAL TABLET 961246 AZITHROMYCIN Inactive AZITHROMYCIN 250 MG ORAL TABLET 2 po qd x 1 day, then 1 po qd x 4 days 12/30 AZITHROMYCIN 250 MG ORAL TABLET 909468 AZITHROMYCIN Inactive PREDNISONE 20 MG ORAL TABLET 2 po qd x 5 days PREDNISONE 20 MG ORAL TABLET 644924 PREDNISONE Inactive Vital Signs Date Name Value [...] Panel - Chemistry sodium, serum 137 mmol/L 655-207 3425/01/03 potassium, serum 3.4 mmol/L 3.5-5.2 chloride, serum 102 mmol/L 98-107 carbon dioxide, venous blood 29.2 mmol/L 21.0-32.0 blood glucose 87 mg/dL 65-110 calcium, serum 8.5 mg/dL 8.5-10.1 urea nitrogen, blood 8 mg/dL 7-18 creatinine, serum 0.82 mg/dL 0.55-1.30 sodium, serum 140 mmol/L 377-494 0490/07/13 potassium, serum 3.2 mmol/L 3.5-5.2 chloride, serum 103 mmol/L 98-107 carbon dioxide, venous blood 26.9 mmol/L 21.0-32.0 blood glucose 93 mg/dL 65-110 calcium, serum 9.2 mg/dL 8.5-10.1 urea nitrogen, blood 13 mg/dL 7-18 creatinine, serum 0.84 mg/dL 0.60-1.30 sodium, serum 140 mmol/L 383-161 4670/08/21 potassium, serum 3.8 mmol/L 3.5-5.2 chloride, serum [...] ... - Chemistry sodium, serum 141 mmol/L 955-091 1737/08/07 carbon dioxide, venous blood 34.0 mmol/L 21.0-32.0 [...] 1.40 mg/dL 0.00-1.00 cholesterol, serum 192 mg/dL 211-943 6752/10/19 triglyceride, serum, fasting 71 mg/dL 30-200 HDL cholesterol, serum 72 mg/dL 32-60 LDL cholesterol, serum 106 mg/dL 0-130 Lab Report: THEOPHYLLINE - Toxicology theophylline level, serum 3.1 ug/mL 10.0-20.0 Encounters Code Encounter Date Provider Facility CPT-27899 Level 4 Est. Patient 14:45:25 CDT Harinder Cr [facility] CPT-63806 Level 4 Est. Patient 09:15:13 CDT Harinder Cr [facility] CPT-74649 Level 3 Est. Patient 11:51:58 CDT Harinder W David [facility] CPT-29037 Level 3 Est. Patient 11:30:05 CDT Harinder Hernandez [facility] CPT-96636 Level 4 Est. Patient 10:19:23 CDT Harinder Hernandez [facility] CPT-07581 Level 3 Est. Patient 09:58:58 CDT Harinder Cr [facility] CPT-89071 Level 3 Est. Patient 12:37:21 CDT Harinder Hernandez [facility] CPT-66720 Level 3 Est. Patient 18:37:17 CDT Harinder Cr [facility] CPT-30929 Level 4 Est. Patient 11:15:54 CDT Nettie King MAHENDRA [facility] CPT-60837 Level 3 Est. Patient 16:42:24 CDT Harinder Cr [facility] CPT-70449 Level 3 Est. Patient 15:03:36 CDT Harinder Hernandez [facility] CPT-93360 Level 3 Est. Patient 15:03:20 CDT Harinder Cr [facility] CPT-61198 Level 3 Est. Patient 12:14:34 CDT Harinder Hernandez [facility] CPT-66127 Level 3 Est. Patient 13:47:15 CDT Harinder Cr [facility] CPT-89762 Level 3 Est. Patient 14:08:24 CDT Harinder Hernandez [facility] CPT-12539 Level 3 Est. Patient 10:07:15 CDT Harinder Cr [facility] CPT-89081 Level 3 Est. Patient 10:06:59 CDT Harinder Cr [facility] CPT-01128 Level 3 Est. Patient 15:53:29 CDT Jae Morgan [facility] CPT-05993 Level 3 Est. Patient 17:19:04 CDT Harinder W David [facility] CPT-89856 Level 3 Est. Patient 11:13:01 CDT Harinder Hernandez [facility] CPT-61785 Level 3 Est. Patient 09:03:58 CDT Harinder Hernandez [facility] CPT-46731 Level 3 Est. Patient 14:46:45 RENT COLLECTOR Harinder Hernandez [facility] CPT-75756 Level 3 Est. Patient 09:35:49 RENT COLLECTOR Harinder Hernandez [facility] CPT-67416 Level 3 Est. Patient 09:29:37 RENT COLLECTOR Harinder Hernandez [facility] CPT-71581 Level 3 Est. Patient 15:51:07 CDT Harinder Hernandez [facility] CPT-04495 Level 3 Est. Patient 18:13:13 CDT Harinder Hernandez [facility] CPT-20076 Level 3 Est. Patient 10:44:19 CDT Harinder Hernandez [facility] CPT-12344 Level 4 Est. Patient 10:07:19 RENT COLLECTOR Harinder Hernandez [facility] CPT-77361 Level 3 Est. Patient 15:59:32 RENT COLLECTOR Harinder Cr [facility] Procedures Code Procedure Name Date Entry Date Standard Description CPT-45239 Abd compl w upright - XRAY USE ONLY 14:48:09 CDT 02/18 CPT-60751 Port a cath flush 13:46:05 CDT CPT-82180 Hip, complete, 2-3 views - XRAY USE ONLY 10:28:40 CDT CPT-82872 BMP - LAB USE ONLY 16:45:09 RENT COLLECTOR CPT-79696 Port a cath flush 12:00:13 RENT COLLECTOR CPT-TCMM Transitional Care Mgmt-Moderate 11:20:16 RENT COLLECTOR CPT-55554 First Vx - Ix admin for Medicare patients 17:35:15 CDT CPT-11110 Fluzone Preservative Free Intramuscular Suspension 17:35 :15 CDT CPT-13376 Microalbumin - LAB USE ONLY 11:52:05 CDT CPT-TCMM Transitional Care Mgmt-Moderate 11:33:57 CDT CPT-85312 No Charge Offi Visit 14:11:29 CDT CPT-93689 Magnesium - LAB USE ONLY 10:45:44 CDT CPT-04922 Lipid - LAB USE ONLY 10:45:44 CDT CPT-41838 CBC - LAB USE ONLY 10:45:44 CDT CPT-57443 Venipuncture Draw Fee 10:45:43 CDT CPT-27622 Venipuncture Draw Fee 18:21:27 CDT CPT-JTINJ Asp/Joint Injection 18:38:04 CDT CPT-12629 Immunization Each Additional Inj 17:38:04 CDT CPT-97354 Immunization Single Admin 17:38:04 CDT CPT-24808 Prevnar 13 17:38:04 CDT CPT-30130 Fluzone Quadrivalent preservative free (>=3yrs.) 17:38: 04 CDT CPT-99101 No Charge Offi Visit 11:14:03 CDT CPT-59392 Chest 2V Frontal and Lat 14:00:18 CDT CPT-OV Office Visit 16:10:28 CDT CPT-JTINJ Asp/Joint Injection 09:03:57 CDT CPT-Cryo Cryotherapy 09:35:49 RENT COLLECTOR CPT-JTINJ Asp/Joint Injection 09:34:45 RENT COLLECTOR CPT-J2930 Solu Medrol 125 mg (Methyl Prednisolone Sodium Succinate) 20:37:27 CDT CPT-79971 Abx/Therapy Injection 20:37:27 CDT CPT-39485 Port a cath flush 08:15:51 CDT CPT-70419 Port a cath flush 09:54:16 CDT CPT-67454 Port a cath flush 09:38:02 CDT CPT-17828 Port a cath flush 11:00:27 RENT COLLECTOR
[2017-12-29 06:14] LABS: BASOPHILS % (AUTO) 0 % (0-10); EOSINOPHILS % (AUTO) 0 % (0-10); HEMATOCRIT 31 % (35-52); HEMOGLOBIN 10.4 G/DL (11.5-16.0); LYMPHOCYTES # (AUTO) 0.5 X 10^3 (1.0-4.0); LYMPHOCYTES % (AUTO) 5 % (12-44); MEAN CORPUSCULAR HEMOGLOBIN 32 PG (25-34); MEAN CORPUSCULAR HGB CONC 34 G/DL (32-36); MEAN CORPUSCULAR VOLUME 94 FL (80-99); MEAN PLATELET VOLUME 9.9 FL (7.4-10.4); MONOCYTES % (AUTO) 0 % (0-12); NEUTROPHILS # (AUTO) 9.7 X 10^3 (1.8-7.8); NEUTROPHILS % (AUTO) 95 % (42-75); PLATELET COUNT 199 10^3/uL (130-400); RED BLOOD COUNT 3.23 10^6/uL (4.35-5.85); RED CELL DISTRIBUTION WIDTH 13.6 % (10.0-14.5); WHITE BLOOD COUNT 10.2 10^3/uL (4.3-11.0)
--- OUTSIDE RECORDS SUMMARY | 2017-12-29 06:14 | XMS REPORT | Clinical Summary ---
Author Author Admin, QIE Organization [facility] Address Unknown Phone Unavailable Allergies, Adverse Reactions, [...] positional vertigo Colon cancer screening V76.[address] [facility] [employer]AST[employer] Screening for malignant neoplasms of colon Screening for malignant neoplasm, colon V76.[address] [facility] [employer] WASTE Screening for malignant neoplasms of colon Pneumonia 486 Active Harinder Hernandez DO Pneumonia, organism unspecified Bacteremia 790.7 Active Harinder Hernandez DO Unspecified bacteremia Clostridium difficile colitis 008.45 Active Harinder Hernandez DO Intestinal infection due to clostridium difficile Abdominal pain, right lower quadrant 789.03 Active Harinder Hernandez DO Abdominal pain, right lower quadrant Needs vaccination for influenza V04.81 Active 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 Melonie [employer] Need for prophylactic vaccination and inoculation against influenza Need for prophylactic vaccination against streptococcus pneumoniae ( Pneumococcus) V03.82 Active 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 Melonie [employer]GE[employer] Need for prophylactic vaccination against Streptococcus pneumoniae [...] Take 1 tab po every hs LOVASTATIN 13146979158 Active Johny Dawkins MD Active AMLODIPINE BESYLATE 5 MG ORAL TABS Take 1 tab po daily AMLODIPINE BESYLATE 25478531834 Active Tawnya Pardo MA Active VENTOLIN HFA 108 (90 BASE) MCG/ACT AERS 2 -4 puffs four times a day PRN 2013 ALBUTEROL SULFATE [id number] No Longer Active Jeri Sosa RPT,RMA Active DILAUDID 2 MG ORAL TABS Take 1/2 tab po every 4 hours as needed for pain 2014 HYDROMORPHONE HCL 45067891817 Active Harinder Hernandez DO Active ACEBUTOLOL HCL 200 MG CAPS 1 cap in the morning and 2 caps in the evening ACEBUTOLOL HCL 76932914570 No Longer Active Harinder Hernandez DO Active CEFDINIR 300 MG ORAL CAPS take 1 cap po bid x 10 days CEFDINIR 02872381463 No Longer Active Harinder Hernandez DO Active AMITRIPTYLINE HCL 25 MG ORAL TABS 1 q hs prn AMITRIPTYLINE HCL 06936911634 Active Tawnya Pardo MA Active LOVASTATIN 40 MG TABS 1 pill by mouth nightly for cholesterol LOVASTATIN 85295375177 No Longer Active Nettie Newberry APRN Active NITROSTAT 0.4 MG SUBL 1 tab under tongueas needed for chest pain ( may take 3 total, 5 min apart, then call 911) NITROGLYCERIN 76934422733 No Longer Active Nettie Newberry APRN Active POTASSIUM CHLORIDE CR 10 MEQ CPCR 1 capsule by mouth daily 02/14 POTASSIUM CHLORIDE 96626782894 No Longer Active Nettie Newberry APRN Active TESSALON PERLES 100 MG CAP 1 to 2 tablets by mouth 3 times daily as needed for cough BENZONATATE 73464299192 No Longer Active Nettie Newberry APRN Active THEOPHYLLINE ER 200 MG ORAL [id number] Take 1 tab every 12 hours THEOPHYLLINE 86847703805 Active Tawnya Pardo MA Active PREDNISONE 20 MG TAB 2 po qd x 5 days PREDNISONE 49551874428 No Longer Active Jae Morgan MD Active AZITHROMYCIN 250 MG TABS 2 po qd x 1 day, then 1 po qd x 4 days AZITHROMYCIN 92930861381 No Longer Active Jae Morgan MD Active PREDNISONE 20 MG TAB 1 tab twice daily for 3 day, then one daily for three days PREDNISONE 40760417074 No Longer Active Jae Morgan MD Active MECLIZINE HCL 25 MG TAB 1 tablet three times daily for 3 days, then 1/2 tab three times daily for 3 days. MECLIZINE HCL 78200894557 Active Harinder Hernandez DO Active SINGULAIR 10 MG TABS 1 pill by mouth every evening for breathing. MONTELUKAST SODIUM 54315021454 Active Tawnya Pardo MA Active TYLENOL 325 MG TAB 3 by mouth q4h as needed ACETAMINOPHEN 67899860619 Active Harinder Hernandez DO Active POTASSIUM CHLORIDE ER 10 MEQ CR-TABS take 1 tab po daily POTASSIUM CHLORIDE 06084441387 No Longer Active Harinder Hernandez DO Active PREDNISONE 20 MG TAB 1 TID x 2 days, then 1 BID x 3 days, then 1 Daily x 3 days, then stop PREDNISONE 48183225491 No Longer Active Jillina Fradankl [employer] Active LEVAQUIN 500 MG TAB 1 tablet by mouth daily LEVOFLOXACIN 92867538111 No Longer Active Jillina Frazell [employer] Active NEURONTIN 300 MG CAP 1 cap by mouth three times daily for restless leg 06/22 GABAPENTIN 63426302439 No Longer Active Harinder Hernandez DO Active BENZONATATE 100 MG CAPS 1 cap po TID PRN BENZONATATE 12938117234 No Longer Active Harinder Hernandez DO Active MONTELUKAST SODIUM 10 MG TABS 1 tab po in the evening MONTELUKAST SODIUM 52013010563 No Longer Active Harinder Hernandez DO Active MUPIROCIN 2 % OINT apply to affected area BID x 14 days MUPIROCIN 06236890247 No Longer Active Harinder Hernandez DO Active TYLENOL EXTRA STRENGTH 500 MG TABS as needed ACETAMINOPHEN 04126202407 No Longer Active Harinder Hernandez DO Active PREDNISONE 10 MG TABS 1 tab po daily PREDNISONE 89974531022 No Longer Active Harinder Hernandez DO Active PREDNISONE 20 MG TAB 2 tabs daily for 4 days, 1 tab daily for 4 days, 1/2 tab daily for 4 days PREDNISONE 06576768118 No Longer Active Harinder Hernandez DO Active AZITHROMYCIN 250 MG TABS 2 po qd x 1 day, then 1 po qd x 4 days AZITHROMYCIN 16052851304 No Longer Active Harinder Hernandez DO Active PREDNISONE 20 MG TAB 3 tabs today, then 1 tab twice daily for 3 day, then one daily for three days PREDNISONE 26978774861 No Longer Active Harinder Hernandez DO Active NIFEDIAC CC 30 MG [id number] 1 tablet daily for raynaud's syndrome NIFEDIPINE 69940267836 No Longer Active Tawnya Pardo MA Active AMBIEN 10 MG TAB 1/2 tab by mouth at bedtime as needed for sleep ZOLPIDEM TARTRATE 65162740638 Active Harinder Hernandez DO Active CLONAZEPAM 1 MG TABS 1 tablet at bedtime for insomnia and restless legs 09/14 CLONAZEPAM 73777685991 Active Harinder Hernanedz DO Active CLONAZEPAM 0.5 MG TABS 1 tab po daily CLONAZEPAM 09271715097 No Longer Active Harinder Hernandez DO Active PREDNISONE 10 MG TAB 1 tablet daily for COPD PREDNISONE 79543827990 Active Tawnya Pardo MA Active PROAIR HFA 108 (90 BASE) MCG/ACT AERS 2 puffs four times a day as needed 2012 ALBUTEROL SULFATE 37318683061 Active Tawnya Pardo MA Active FLOVENT HFA 110 MCG/ACT AERO 2 puffs inhaled b.i.d. FLUTICASONE PROPIONATE HFA 42326805285 Active Tawnya Pardo MA Active EPIPEN 0.3 MG/0.3ML URIEL DIRECTED EPINEPHRINE Active Demetrius JOHNSON Active ACIPHEX 20 MG TBEC 1 tab po daily RABEPRAZOLE SODIUM 00246806466 Active Tawnya Pardo MA Active TOPIRAMATE 25 MG TABS 1 tab po BID TOPIRAMATE 97833245440 Active Tawnya Pardo MA Active CLONAZEPAM 0.5 MG TABS 1 tab po daily CLONAZEPAM 0.5 MG TABS 229148 CLONAZEPAM Inactive PREDNISONE 20 MG TAB 3 tabs today, then 1 tab twice daily for 3 day, then one daily for three days PREDNISONE 20 MG TAB 202454 PREDNISONE Inactive PREDNISONE 20 MG TAB 2 tabs daily for 4 days, 1 tab daily for 4 days, 1/2 tab daily for 4 days PREDNISONE 20 MG TAB 398937 PREDNISONE Inactive PREDNISONE 10 MG TABS 1 tab po daily PREDNISONE 10 MG TABS 733691 PREDNISONE Inactive TYLENOL EXTRA STRENGTH 500 MG TABS as needed TYLENOL EXTRA STRENGTH 500 MG TABS 264537 ACETAMINOPHEN Inactive MUPIROCIN 2 % OINT apply to affected area BID x 14 days MUPIROCIN 2 % OINT 753137 MUPIROCIN Inactive MONTELUKAST SODIUM 10 MG TABS 1 tab po in the evening MONTELUKAST SODIUM 10 MG TABS 20010818 MONTELUKAST SODIUM Inactive BENZONATATE 100 MG CAPS 1 cap po TID PRN BENZONATATE 100 MG CAPS 611436 BENZONATATE Inactive NEURONTIN 300 MG CAP 1 cap by mouth three times daily for restless leg 06/22 NEURONTIN 300 MG CAP 506648 GABAPENTIN Inactive LEVAQUIN 500 MG TAB 1 tablet by mouth daily LEVAQUIN 500 MG TAB 087464 LEVOFLOXACIN Inactive PREDNISONE 20 MG TAB 1 TID x 2 days, then 1 BID x 3 days, then 1 Daily x 3 days, then stop PREDNISONE 20 MG TAB 129177 PREDNISONE Inactive POTASSIUM CHLORIDE ER 10 MEQ CR-TABS take 1 tab po daily POTASSIUM CHLORIDE ER 10 MEQ CR-TABS POTASSIUM CHLORIDE Inactive PREDNISONE 20 MG TAB 1 tab twice daily for 3 day, then one daily for three days PREDNISONE 20 MG TAB 932400 PREDNISONE Inactive TESSALON PERLES 100 MG CAP 1 to 2 tablets by mouth 3 times daily as needed for cough TESSALON PERLES 100 MG CAP 043207 BENZONATATE Inactive POTASSIUM CHLORIDE CR 10 MEQ [...] nightly for cholesterol LOVASTATIN 40 MG TABS 626678 LOVASTATIN Inactive CEFDINIR 300 MG ORAL CAPS take 1 cap po bid x 10 days CEFDINIR 300 MG ORAL CAPS 514696 CEFDINIR Inactive ACEBUTOLOL HCL 200 MG CAPS 1 cap in the morning and 2 caps in the evening ACEBUTOLOL HCL 200 MG CAPS 596552 ACEBUTOLOL HCL Inactive VENTOLIN HFA 108 (90 BASE) MCG/ACT AERS 2 -4 puffs four times a day PRN 2013 VENTOLIN HFA 108 (90 BASE) MCG/ACT AERS ALBUTEROL SULFATE Inactive AZITHROMYCIN 250 MG TABS 2 po qd x 1 day, then 1 po qd x 4 days AZITHROMYCIN 250 MG TABS 2552065 AZITHROMYCIN Inactive AZITHROMYCIN 250 MG TABS 2 po qd x 1 day, then 1 po qd x 4 days AZITHROMYCIN 250 MG TABS 2803713 AZITHROMYCIN Inactive PREDNISONE 20 MG TAB 2 po qd x 5 days PREDNISONE 20 MG TAB 170332 PREDNISONE Inactive Vital Signs Date Name Value [...] Panel - Chemistry sodium, serum 138 mmol/L 851-324 9840/09/24 potassium, serum 3.5 mmol/L 3.5-5.2 chloride, serum [...] 142-424 Encounters Code Encounter Date Provider Facility CPT-91233 Level 3 Est. Patient 12:14:34 CDT Harinder Cr [facility] CPT-03702 Level 3 Est. Patient 13:47:15 CDT Harinder Cr [facility] CPT-06645 Level 3 Est. Patient 14:08:24 CDT Harinder Cr [facility] CPT-61223 Level 3 Est. Patient 10:07:15 CDT Harinder Hernandez [facility] CPT-51898 Level 3 Est. Patient 10:06:59 CDT Harinder Cr [facility] CPT-94681 Level 3 Est. Patient 15:53:29 CDT Jae Morgan MD [facility] CPT-28900 Level 3 Est. Patient 17:19:04 CDT Harinder Cr David [facility] CPT-47536 Level 3 Est. Patient 11:13:01 CDT Harinder Hernandez [facility] CPT-40750 Level 3 Est. Patient 09:03:58 CDT Harinder Hernandez [facility] [address] CPT-17800 Level 3 Est. Patient 14:46:45 [employer] Harinder Shaye David [facility] CPT-76745 Level 3 Est. Patient 09:35:49 [employer]STITCH [employer]TER Harinder Hernandez [facility] [address] CPT-56745 Level 3 Est. 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 Patient 15:51:07 CDT Harinder Hernandez [facility] CPT-03719 Level 3 Est. Patient 18:13:13 CDT Harinder Cr [facility] CPT-86009 Level 3 Est. Patient 10:44:19 CDT Harinder Hernandez [facility] CPT-60138 Level 4 Est. Patient 10:07:19 LOCKSTITCH [employer]PER SETTER Harinder Cr [facility] CPT-66670 Level 3 Est. Patient 15:59:32 LOCKSTITCH [employer] SETTER Harinder Cr [facility] Procedures Code Procedure Name Date Entry Date Standard Description CPT-89965 Immunization Each Additional Inj 17:38:04 CDT CPT-96727 Immunization Single Admin 17:38:04 CDT CPT-03097 Prevnar 13 17:38:04 CDT CPT-48982 Fluzone Quadrivalent preservative free (>=3yrs.) 17:38: 04 CDT CPT-27953 No Charge Offi Visit 11:14:03 CDT CPT-88653 Chest 2V Frontal and Lat 14:00:18 CDT CPT-OV Office Visit 16:10:28 CDT CPT-JTINJ Asp/Joint Injection 09:03:57 CDT CPT-Cryo Cryotherapy 09:35:49 [employer]ITCH [employer]TER CPT-JTINJ Asp/Joint Injection 09:34:45 LOCKSTITCH [employer]TER CPT-J2930 Solu Medrol 125 mg (Methyl Prednisolone Sodium Succinate) 20:37:27 CDT CPT-86461 Abx/Therapy Injection 20:37:27 CDT CPT-56001 Port a cath flush 08:15:51 CDT CPT-75694 Port a cath flush 09:54:16 CDT CPT-08371 Port a cath flush 09:38:02 CDT CPT-12117 Port a cath flush 11:00:27 LOCKSTITCH [employer]IP[employer] SETTER
--- OUTSIDE RECORDS SUMMARY | 2017-12-29 06:15 | XMS REPORT | Clinical Summary ---
Author Author Admin, QIE Organization [facility] Address Unknown Phone Unavailable Allergies, Adverse Reactions, [...] 4hrs PRN Wheezing Dx: J44.1 ALBUTEROL SULFATE 12716484654 Active Kortney Mccain Active AMLODIPINE BESYLATE 5 MG TABS 1 tablet by mouth daily AMLODIPINE BESYLATE 21652910992 Active Harinder Hernandez DO Active NIFEDIPINE ER 30 MG ORAL ZU94L-AOL 1 daily NIFEDIPINE 02994563764 No Longer Active Harinder Hernandez DO Active POTASSIUM CHLORIDE 20 MEQ ORAL PACK Take 1 tablet by mouth daily POTASSIUM CHLORIDE 34623848955 Active Ciera Pimentel Active FLOVENT HFA 110 MCG/ACT AERO 2 puffs inhaled b.i.d. FLUTICASONE PROPIONATE HFA 31760952704 Active Harinder Hernandez DO Active POTASSIUM CHLORIDE CR 10 MEQ CPCR 1 capsule by mouth daily POTASSIUM CHLORIDE 22782729431 Active Harinder Hernandez DO Active EPIPEN 2-BRUNA 0.3 MG/0.3ML INJ SOAJ 1 INJ NEEDED EPINEPHRINE 32659832739 Active Harinder Hernandez DO Active PREDNISONE 20 MG TAB 1 tab twice daily for 3 day, then one daily for three days PREDNISONE 83998731325 No Longer Active Harinder Hernandez DO Active PREDNISONE 20 MG TAB 1 tablet twice daily for 2 days, then 1 tablet once daily for 2 days PREDNISONE 62258508540 No Longer Active Harinder Hernandez DO Active ASMANEX 120 METERED DOSES 220 MCG/INH INH AEPB 2 puffs orally twice daily MOMETASONE FUROATE 04569898170 Active Jeri Sosa RPT,RMA Active TOPIRAMATE 25 MG TABS 1 tab po BID TOPIRAMATE 92826137587 No Longer Active Nettie Newberry APRN Active AMLODIPINE BESYLATE 5 MG ORAL TABS Take 1 tab po daily AMLODIPINE BESYLATE 38902329850 No Longer Active Nettie Newberry MAHENDRA Active MECLIZINE HCL 25 MG TAB 1 tablet three times daily for 3 days, then 1/2 tab three times daily for 3 days. MECLIZINE HCL 37137176258 No Longer Active Nettie Newberry MAHENDRA Active AMITRIPTYLINE HCL 25 MG ORAL TABS 1 q hs prn AMITRIPTYLINE HCL 14656820058 No Longer Active Nettie Newberry MAHENDRA Active DILAUDID 2 MG ORAL TABS Take 1/2 tab po every 4 hours as needed for pain 2014 HYDROMORPHONE HCL 88959199985 No Longer Active Nettie Newberry MAHENDRA Active CLOPIDOGREL BISULFATE 75 MG ORAL TABS 1 tab by mouth once daily CLOPIDOGREL BISULFATE 49709674086 Active Tawnya Pardo MA Active ATORVASTATIN CALCIUM 10 MG ORAL TABS 1 at bedtime ATORVASTATIN CALCIUM 25009064027 Active Tawnya Pardo MA Active LOVASTATIN 40 MG ORAL TABS Take 1 tab po every hs LOVASTATIN 55162854867 No Longer Active Harinder Hernandez DO Active PREDNISONE 20 MG TAB 2 tabs daily for 4 days, 1 tab daily for 4 days, 1/2 tab daily for 4 days PREDNISONE 30218881524 No Longer Active Harinder Hernandez DO Active LEVAQUIN 500 MG ORAL TABS Take 1 tab po daily x 8 days LEVOFLOXACIN 83534238001 No Longer Active Harinder Hernandez DO Active VENTOLIN HFA 108 (90 BASE) MCG/ACT AERS 2 -4 puffs four times a day PRN 2013 ALBUTEROL SULFATE 28216419783 No Longer Active Jeri Sosa RPT,RMA Active ACEBUTOLOL HCL 200 MG CAPS 1 cap in the morning and 2 caps in the evening ACEBUTOLOL HCL 60739307113 No Longer Active Harinder Hernandez DO Active CEFDINIR 300 MG ORAL CAPS take 1 cap po bid x 10 days CEFDINIR 38621156140 No Longer Active Harinder Hernandez DO Active LOVASTATIN 40 MG TABS 1 pill by mouth nightly for cholesterol LOVASTATIN 82966201363 No Longer Active Nettie Newberry APRN Active NITROSTAT 0.4 MG SUBL 1 tab under tongueas needed for chest pain ( may take 3 total, 5 min apart, then call 911) NITROGLYCERIN 08269450931 No Longer Active Nettie Newberry APRN Active POTASSIUM CHLORIDE CR 10 MEQ CPCR 1 capsule by mouth daily 02/14 POTASSIUM CHLORIDE 83012580260 No Longer Active Nettie Newberry APRN Active TESSALON PERLES 100 MG CAP 1 to 2 tablets by mouth 3 times daily as needed for cough BENZONATATE 03411344959 No Longer Active Nettie Newberry APRN Active THEOPHYLLINE ER 200 MG ORAL [id number] Take 1 tab every 12 hours THEOPHYLLINE 47698747327 Active Tawnya Pardo MA Active PREDNISONE 20 MG TAB 2 po qd x 5 days PREDNISONE 53301460920 No Longer Active Jae Morgan MD Active AZITHROMYCIN 250 MG TABS 2 po qd x 1 day, then 1 po qd x 4 days AZITHROMYCIN 03957748583 No Longer Active Jae Morgan MD Active PREDNISONE 20 MG TAB 1 tab twice daily for 3 day, then one daily for three days PREDNISONE 61557398090 No Longer Active Jae Morgan MD Active SINGULAIR 10 MG TABS 1 pill by mouth every evening for breathing. MONTELUKAST SODIUM 04859428087 Active Tawnya Pardo MA Active TYLENOL 325 MG TAB 3 by mouth q4h as needed ACETAMINOPHEN 79048802582 Active Harinder Hernandez DO Active POTASSIUM CHLORIDE ER 10 MEQ CR-TABS take 1 tab po daily POTASSIUM CHLORIDE 64664296877 No Longer Active Harinder Hernandez DO Active PREDNISONE 20 MG TAB 1 TID x 2 days, then 1 BID x 3 days, then 1 Daily x 3 days, then stop PREDNISONE 58638994881 No Longer Active Jillina Frazell [employer] Active LEVAQUIN 500 MG TAB 1 tablet by mouth daily LEVOFLOXACIN 95004122733 No Longer Active Jillina Frazell [employer] Active NEURONTIN 300 MG CAP 1 cap by mouth three times daily for restless leg 06/22 GABAPENTIN 25150487749 No Longer Active Harinder Hernandez DO Active BENZONATATE 100 MG CAPS 1 cap po TID PRN BENZONATATE 37094441278 No Longer Active Harinder Hernandez DO Active MONTELUKAST SODIUM 10 MG TABS 1 tab po in the evening MONTELUKAST SODIUM 17479356220 No Longer Active Harinder Hernandez DO Active MUPIROCIN 2 % OINT apply to affected area BID x 14 days MUPIROCIN 31155714402 No Longer Active Harinder Hernandez DO Active TYLENOL EXTRA STRENGTH 500 MG TABS as needed ACETAMINOPHEN 44240143093 No Longer Active Harinder Hernandez DO Active PREDNISONE 10 MG TABS 1 tab po daily PREDNISONE 99113914132 No Longer Active Harinder Hernandez DO Active PREDNISONE 20 MG TAB 2 tabs daily for 4 days, 1 tab daily for 4 days, 1/2 tab daily for 4 days PREDNISONE 84132970068 No Longer Active Harinder Hernandez DO Active AZITHROMYCIN 250 MG TABS 2 po qd x 1 day, then 1 po qd x 4 days AZITHROMYCIN 22300931897 No Longer Active Harinder Hernandez DO Active PREDNISONE 20 MG TAB 3 tabs today, then 1 tab twice daily for 3 day, then one daily for three days PREDNISONE 94769217965 No Longer Active Harinder Hernandez DO Active NIFEDIAC CC 30 MG [id number] 1 tablet daily for raynaud's syndrome NIFEDIPINE 65540389435 No Longer Active Tawnya Pardo MA Active AMBIEN 10 MG TAB 1/2 tab by mouth at bedtime as needed for sleep ZOLPIDEM TARTRATE 60124878215 Active Harinder Hernandez DO Active CLONAZEPAM 1 MG TABS 1 tablet at bedtime for insomnia and restless legs 09/14 CLONAZEPAM 41616663307 Active Harinder Hernandez DO Active CLONAZEPAM 0.5 MG TABS 1 tab po daily CLONAZEPAM 50959743646 No Longer Active Harinder Hernandez DO Active PREDNISONE 10 MG TAB 1 tablet daily for COPD PREDNISONE 72561708299 Active Tawnya Pardo MA Active PROAIR HFA 108 (90 BASE) MCG/ACT AERS 2 puffs four times a day as needed 2012 ALBUTEROL SULFATE 11372233394 Active Tawnya Pardo MA Active FLOVENT HFA 110 MCG/ACT AERO 2 puffs inhaled b.i.d. FLUTICASONE PROPIONATE HFA 16077451981 Active Kortney Mccain Active ACIPHEX 20 MG TBEC 1 tab po daily RABEPRAZOLE SODIUM 69389526130 Active Kaylah Newberry Active CLONAZEPAM 0.5 MG TABS 1 tab po daily CLONAZEPAM 0.5 MG TABS 982465 CLONAZEPAM Inactive PREDNISONE 20 MG TAB 3 tabs today, then 1 tab twice daily for 3 day, then one daily for three days PREDNISONE 20 MG TAB 042420 PREDNISONE Inactive PREDNISONE 20 MG TAB 2 tabs daily for 4 days, 1 tab daily for 4 days, 1/2 tab daily for 4 days PREDNISONE 20 MG TAB 773533 PREDNISONE Inactive PREDNISONE 10 MG TABS 1 tab po daily PREDNISONE 10 MG TABS 901749 PREDNISONE Inactive TYLENOL EXTRA STRENGTH 500 MG TABS as needed TYLENOL EXTRA STRENGTH 500 MG TABS 732265 ACETAMINOPHEN Inactive MUPIROCIN 2 % OINT apply to affected area BID x 14 days MUPIROCIN 2 % OINT 756810 MUPIROCIN Inactive MONTELUKAST SODIUM 10 MG TABS 1 tab po in the evening MONTELUKAST SODIUM 10 MG TABS 20010818 MONTELUKAST SODIUM Inactive BENZONATATE 100 MG CAPS 1 cap po TID PRN BENZONATATE 100 MG CAPS 19730321 BENZONATATE Inactive NEURONTIN 300 MG CAP 1 cap by mouth three times daily for restless leg 06/22 NEURONTIN 300 MG CAP 236345 GABAPENTIN Inactive LEVAQUIN 500 MG TAB 1 tablet by mouth daily LEVAQUIN 500 MG TAB 400936 LEVOFLOXACIN Inactive PREDNISONE 20 MG TAB 1 TID x 2 days, then 1 BID x 3 days, then 1 Daily x 3 days, then stop PREDNISONE 20 MG TAB 808702 PREDNISONE Inactive POTASSIUM CHLORIDE ER 10 MEQ CR-TABS take 1 tab po daily POTASSIUM CHLORIDE ER 10 MEQ CR-TABS POTASSIUM CHLORIDE Inactive PREDNISONE 20 MG TAB 1 tab twice daily for 3 day, then one daily for three days PREDNISONE 20 MG TAB 562364 PREDNISONE Inactive TESSALON PERLES 100 MG CAP [...] then call 911) NITROSTAT 0.4 MG SUBL 207757 NITROGLYCERIN Inactive LOVASTATIN 40 MG TABS 1 pill by mouth nightly for cholesterol LOVASTATIN 40 MG TABS 850537 LOVASTATIN Inactive CEFDINIR 300 MG ORAL CAPS take 1 cap po bid x 10 days CEFDINIR 300 MG ORAL CAPS 20021018 CEFDINIR Inactive ACEBUTOLOL HCL 200 MG CAPS 1 cap in the morning and 2 caps in the evening ACEBUTOLOL HCL 200 MG CAPS 906272 ACEBUTOLOL HCL Inactive VENTOLIN HFA 108 (90 BASE) MCG/ACT AERS 2 -4 puffs four times a day PRN 2013 VENTOLIN HFA 108 (90 BASE) MCG/ACT AERS ALBUTEROL SULFATE Inactive LEVAQUIN 500 MG ORAL TABS Take 1 tab po daily x 8 days LEVAQUIN 500 MG ORAL TABS 909334 LEVOFLOXACIN Inactive PREDNISONE 20 MG TAB 2 tabs daily for 4 days, 1 tab daily for 4 days, 1/2 tab daily for 4 days PREDNISONE 20 MG TAB 905086 PREDNISONE Inactive LOVASTATIN 40 MG ORAL TABS Take 1 tab po every hs LOVASTATIN 40 MG ORAL TABS 644652 LOVASTATIN Inactive DILAUDID 2 MG ORAL TABS Take 1/2 tab po every 4 hours as needed for pain 2014 DILAUDID 2 MG ORAL TABS 715627 HYDROMORPHONE HCL Inactive AMITRIPTYLINE HCL 25 MG ORAL TABS 1 q hs prn AMITRIPTYLINE HCL 25 MG ORAL TABS 574325 AMITRIPTYLINE HCL Inactive MECLIZINE HCL 25 MG TAB 1 tablet three times daily for 3 days, then 1/2 tab three times daily for 3 days. MECLIZINE HCL 25 MG TAB 875922 MECLIZINE HCL Inactive AMLODIPINE BESYLATE 5 MG ORAL TABS Take 1 tab po daily AMLODIPINE BESYLATE 5 MG ORAL TABS 844223 AMLODIPINE BESYLATE Inactive TOPIRAMATE 25 MG TABS 1 tab po BID TOPIRAMATE 25 MG TABS 392667 TOPIRAMATE Inactive PREDNISONE 20 MG TAB 1 tablet twice daily for 2 days, then 1 tablet once daily for 2 days PREDNISONE 20 MG TAB 619371 PREDNISONE Inactive PREDNISONE 20 MG TAB 1 tab twice daily for 3 day, then one daily for three days PREDNISONE 20 MG TAB 883605 PREDNISONE Inactive NIFEDIPINE ER 30 MG ORAL [id number] 1 daily NIFEDIPINE ER 30 MG ORAL [id number] NIFEDIPINE Inactive AZITHROMYCIN 250 MG TABS 2 po qd x 1 day, then 1 po qd x 4 days AZITHROMYCIN 250 MG TABS 1495762 AZITHROMYCIN Inactive AZITHROMYCIN 250 MG TABS 2 po qd x 1 day, then 1 po qd x 4 days AZITHROMYCIN 250 MG TABS 6922707 AZITHROMYCIN Inactive PREDNISONE 20 MG TAB 2 po qd x 5 days PREDNISONE 20 MG TAB 476676 PREDNISONE Inactive Vital Signs Date Name Value [...] Panel - Chemistry sodium, serum 137 mmol/L 468-709 1453/01/03 potassium, serum 3.4 mmol/L 3.5-5.2 chloride, serum [...] Magnesium - Chemistry cholesterol, serum 180 mg/dL 433-069 9688/08/08 triglyceride, serum, fasting 92 mg/dL 30-200 HDL cholesterol, serum 66 mg/dL 32-96 LDL cholesterol, serum 96 mg/dL 0-130 sodium, serum 142 mmol/L 107-067 0312/08/08 carbon dioxide, venous blood 27.4 mmol/L 21.0-32.0 [...] 10.0-20.0 Encounters Code Encounter Date Provider Facility CPT-56011 Level 3 Est. Patient 09:58:58 CDT Harinder Cr [facility] CPT-66514 Level 3 Est. Patient 12:37:21 CDT Harinder Cr [facility] CPT-64938 Level 3 Est. Patient 18:37:17 CDT [facility] CPT-58718 Level 4 Est. Patient 11:15:54 CDT Nettie Newberry [facility] CPT-91662 Level 3 Est. Patient 16:42:24 CDT Harinder Cr [facility] CPT-40831 Level 3 Est. Patient 15:03:36 CDT Harinder Cr [facility] CPT-14397 Level 3 Est. Patient 15:03:20 CDT Harinder Cr [facility] CPT-68513 Level 3 Est. Patient 12:14:34 CDT Harinder Cr [facility] CPT-71789 Level 3 Est. Patient 13:47:15 CDT Harinder Cr [facility] CPT-57403 Level 3 Est. Patient 14:08:24 CDT Harinder Hernandez [facility] CPT-57768 Level 3 Est. Patient 10:07:15 CDT Harinder Hernandez [facility] CPT-58053 Level 3 Est. Patient 10:06:59 CDT Harinder Hernandez [facility] CPT-85273 Level 3 Est. Patient 15:53:29 CDT Jae Morgan MD [facility] CPT-82070 Level 3 Est. Patient 17:19:04 CDT Harinder Hernandez [facility] CPT-86373 Level 3 Est. Patient 11:13:01 CDT Harinder Hernandez [facility] CPT-32851 Level 3 Est. Patient 09:03:58 CDT Harinder Hernandez [facility] CPT-10192 Level 3 Est. Patient 14:46:45 DISCHARGE RN Harinder Hernandez [facility] CPT-27563 Level 3 Est. Patient 09:35:49 DISCHARGE RN Harinder Hernandez [facility] CPT-21175 Level 3 Est. Patient 09:29:37 DISCHARGE RN Harinder Hernandez [facility] CPT-78396 Level 3 Est. Patient 15:51:07 CDT Harinder Hernandez [facility] CPT-35056 Level 3 Est. Patient 18:13:13 CDT Harinder Hernandez [facility] CPT-05573 Level 3 Est. Patient 10:44:19 CDT Harinder Hernandez [facility] CPT-91432 Level 4 Est. Patient 10:07:19 DISCHARGE RN Harinder Hernandez [facility] CPT-65263 Level 3 Est. Patient 15:59:32 DISCHARGE RN Harinder Cr [facility] Procedures Code Procedure Name Date Entry Date Standard Description CPT-83365 BMP - LAB USE ONLY 16:45:09 DISCHARGE RN CPT-51858 Port a cath flush 12:00:13 DISCHARGE RN CPT-TCMM Transitional Care Mgmt-Moderate 11:20:16 DISCHARGE RN CPT-44481 First Vx - Ix admin for Medicare patients 17:35:15 CDT CPT-00246 Fluzone Preservative Free Intramuscular Suspension 17:35 :15 CDT CPT-57384 Microalbumin - LAB USE ONLY 11:52:05 CDT CPT-TCMM Transitional Care Mgmt-Moderate 11:33:57 CDT CPT-02715 No Charge Offi Visit 14:11:29 CDT CPT-49724 Magnesium - LAB USE ONLY 10:45:44 CDT CPT-88116 Lipid - LAB USE ONLY 10:45:44 CDT CPT-78536 CBC - LAB USE ONLY 10:45:44 CDT CPT-02959 Venipuncture Draw Fee 10:45:43 CDT CPT-45582 Venipuncture Draw Fee 18:21:27 CDT CPT-JTINJ Asp/Joint Injection 18:38:04 CDT CPT-76082 Immunization Each Additional Inj 17:38:04 CDT CPT-14789 Immunization Single Admin 17:38:04 CDT CPT-27019 Prevnar 13 17:38:04 CDT CPT-74295 Fluzone Quadrivalent preservative free (>=3yrs.) 17:38: 04 CDT CPT-23246 No Charge Offi Visit 11:14:03 CDT CPT-75366 Chest 2V Frontal and Lat 14:00:18 CDT CPT-OV Office Visit 16:10:28 CDT CPT-JTINJ Asp/Joint Injection 09:03:57 CDT CPT-Cryo Cryotherapy 09:35:49 DISCHARGE RN CPT-JTINJ Asp/Joint Injection 09:34:45 DISCHARGE RN CPT-J2930 Solu Medrol 125 mg (Methyl Prednisolone Sodium Succinate) 20:37:27 CDT CPT-37619 Abx/Therapy Injection 20:37:27 CDT CPT-42126 Port a cath flush 08:15:51 CDT CPT-25166 Port a cath flush 09:54:16 CDT CPT-24675 Port a cath flush 09:38:02 CDT CPT-71991 Port a cath flush 11:00:27 DISCHARGE RN
--- OUTSIDE RECORDS SUMMARY | 2017-12-29 06:16 | XMS REPORT | Clinical Summary ---
Author Author Admin, QIE Organization [facility] Address Unknown Phone Unavailable Allergies, Adverse [...] syndrome (RLS) Breast mass, right 611.72 Resolved Harinedr Hernandez DO Lump or mass in breast [...] MG/0.3ML INJ SOAJ 1 INJ NEEDED EPINEPHRINE 67746471578 Active Tawnya Pardo MA Active PREDNISONE 20 MG TAB 1 tab twice daily for 3 day, then one daily for three days PREDNISONE 80829782210 No Longer Active Harinder Hernandez DO Active PREDNISONE 20 MG TAB 1 tablet twice daily for 2 days, then 1 tablet once daily for 2 days PREDNISONE 52400486401 No Longer Active Harinder Hernandez DO Active ASMANEX 120 METERED DOSES 220 MCG/INH INH AEPB 2 puffs orally twice daily MOMETASONE FUROATE 86595682693 Active Jeri Sosa RPT,RMA Active NIFEDIPINE ER 30 MG ORAL [id number] 1 daily NIFEDIPINE 33895537531 Active Kaylah Newberry Active TOPIRAMATE 25 MG TABS 1 tab po BID TOPIRAMATE 27396433227 No Longer Active Nettie Newberry APRN Active AMLODIPINE BESYLATE 5 MG ORAL TABS Take 1 tab po daily AMLODIPINE BESYLATE 44458283375 No Longer Active Nettie Newberry APRN Active MECLIZINE HCL 25 MG TAB 1 tablet three times daily for 3 days, then 1/2 tab three times daily for 3 days. MECLIZINE HCL 81151797915 No Longer Active Nettie Newberry APRN Active AMITRIPTYLINE HCL 25 MG ORAL TABS 1 q hs prn AMITRIPTYLINE HCL 02325427497 No Longer Active Nettie Newberry APRN Active DILAUDID 2 MG ORAL TABS Take 1/2 tab po every 4 hours as needed for pain 2014 HYDROMORPHONE HCL 34038728819 No Longer Active Nettie Newberry APRN Active CLOPIDOGREL BISULFATE 75 MG ORAL TABS 1 tab by mouth once daily CLOPIDOGREL BISULFATE 10462275340 Active Tawnya Pardo MA Active ATORVASTATIN CALCIUM 10 MG ORAL TABS 1 at bedtime ATORVASTATIN CALCIUM 78587199867 Active Tawnya Pardo MA Active LOVASTATIN 40 MG ORAL TABS Take 1 tab po every hs LOVASTATIN 99668975453 No Longer Active Harinder Hernandez DO Active PREDNISONE 20 MG TAB 2 tabs daily for 4 days, 1 tab daily for 4 days, 1/2 tab daily for 4 days PREDNISONE 69370595251 No Longer Active Harinder Hernandez DO Active LEVAQUIN 500 MG ORAL TABS Take 1 tab po daily x 8 days LEVOFLOXACIN 86784907561 No Longer Active Harinder Hernandez DO Active VENTOLIN HFA 108 (90 BASE) MCG/ACT AERS 2 -4 puffs four times a day PRN 2013 ALBUTEROL SULFATE 14631169534 No Longer Active Jeri Sosa RPT,RMA Active ACEBUTOLOL HCL 200 MG CAPS 1 cap in the morning and 2 caps in the evening ACEBUTOLOL HCL 72438855230 No Longer Active Harinder Hernandez DO Active CEFDINIR 300 MG ORAL CAPS take 1 cap po bid x 10 days CEFDINIR 98477387224 No Longer Active Harinder Hernandez DO Active LOVASTATIN 40 MG TABS 1 pill by mouth nightly for cholesterol LOVASTATIN 56276074417 No Longer Active Nettie Newberry APRN Active NITROSTAT 0.4 MG SUBL 1 tab under tongueas needed for chest pain ( may take 3 total, 5 min apart, then call 911) NITROGLYCERIN 57619294448 No Longer Active Nettie Newberry APRN Active POTASSIUM CHLORIDE CR 10 MEQ CPCR 1 capsule by mouth daily 02/14 POTASSIUM CHLORIDE 55558167666 No Longer Active Nettie Newberry APRN Active TESSALON PERLES 100 MG CAP 1 to 2 tablets by mouth 3 times daily as needed for cough BENZONATATE 14762639094 No Longer Active Nettie Newberry APRN Active THEOPHYLLINE ER 200 MG ORAL [id number] Take 1 tab every 12 hours THEOPHYLLINE 94213788450 Active Tawnya Pardo MA Active PREDNISONE 20 MG TAB 2 po qd x 5 days PREDNISONE 22748253599 No Longer Active Jae Morgan MD Active AZITHROMYCIN 250 MG TABS 2 po qd x 1 day, then 1 po qd x 4 days AZITHROMYCIN 60788827274 No Longer Active Jae Morgan MD Active PREDNISONE 20 MG TAB 1 tab twice daily for 3 day, then one daily for three days PREDNISONE 91071410177 No Longer Active Jae Morgan MD Active SINGULAIR 10 MG TABS 1 pill by mouth every evening for breathing. MONTELUKAST SODIUM 22458053593 Active Tawnya Pardo MA Active TYLENOL 325 MG TAB 3 by mouth q4h as needed ACETAMINOPHEN 11486295769 Active Harinder Hernandez DO Active POTASSIUM CHLORIDE ER 10 MEQ CR-TABS take 1 tab po daily POTASSIUM CHLORIDE 28975786505 No Longer Active Harinder Hernandez DO Active PREDNISONE 20 MG TAB 1 TID x 2 days, then 1 BID x 3 days, then 1 Daily x 3 days, then stop PREDNISONE 04946445670 No Longer Active John Montemayor APRN Active LEVAQUIN 500 MG TAB 1 tablet by mouth daily LEVOFLOXACIN 36475117516 No Longer Active Jillkvng Montemayor APRN Active NEURONTIN 300 MG CAP 1 cap by mouth three times daily for restless leg 06/22 GABAPENTIN 94746474992 No Longer Active Harinder Hernandez DO Active BENZONATATE 100 MG CAPS 1 cap po TID PRN BENZONATATE 80700315645 No Longer Active Harinder Hernandez DO Active MONTELUKAST SODIUM 10 MG TABS 1 tab po in the evening MONTELUKAST SODIUM 36488398634 No Longer Active Harinder Hernandez DO Active MUPIROCIN 2 % OINT apply to affected area BID x 14 days MUPIROCIN 20655064609 No Longer Active Harinder Hernandez DO Active TYLENOL EXTRA STRENGTH 500 MG TABS as needed ACETAMINOPHEN 44137014406 No Longer Active Harinder Hernandez DO Active PREDNISONE 10 MG TABS 1 tab po daily PREDNISONE 71421427836 No Longer Active Harinder Hernandez DO Active PREDNISONE 20 MG TAB 2 tabs daily for 4 days, 1 tab daily for 4 days, 1/2 tab daily for 4 days PREDNISONE 52364949404 No Longer Active Harinder Hernandez DO Active AZITHROMYCIN 250 MG TABS 2 po qd x 1 day, then 1 po qd x 4 days AZITHROMYCIN 69141555226 No Longer Active Harinder Hernandez DO Active PREDNISONE 20 MG TAB 3 tabs today, then 1 tab twice daily for 3 day, then one daily for three days PREDNISONE 66689560992 No Longer Active Harinder Hernandez DO Active NIFEDIAC CC 30 MG [id number] 1 tablet daily for raynaud's syndrome NIFEDIPINE 69216537747 No Longer Active Tawnya Pardo MA Active AMBIEN 10 MG TAB 1/2 tab by mouth at bedtime as needed for sleep ZOLPIDEM TARTRATE 69163273277 Active Harinder Hernandez DO Active CLONAZEPAM 1 MG TABS 1 tablet at bedtime for insomnia and restless legs 09/14 CLONAZEPAM 89344048305 Active Kaylah Newberry Active CLONAZEPAM 0.5 MG TABS 1 tab po daily CLONAZEPAM 55306927131 No Longer Active Harinder Hernandez DO Active PREDNISONE 10 MG TAB 1 tablet daily for COPD PREDNISONE 40365523384 Active Tawnya Pardo MA Active PROAIR HFA 108 (90 BASE) MCG/ACT AERS 2 puffs four times a day as needed 2012 ALBUTEROL SULFATE 40075488625 Active Tawnya Pardo MA Active FLOVENT HFA 110 MCG/ACT AERO 2 puffs inhaled b.i.d. FLUTICASONE PROPIONATE HFA 02595611920 Active Tawnya Pardo MA Active ACIPHEX 20 MG TBEC 1 tab po daily RABEPRAZOLE SODIUM 15046428426 Active Kaylah Newberry Active CLONAZEPAM 0.5 MG TABS 1 tab po daily CLONAZEPAM 0.5 MG TABS 061822 CLONAZEPAM Inactive PREDNISONE 20 MG TAB 3 tabs today, then 1 tab twice daily for 3 day, then one daily for three days PREDNISONE 20 MG TAB 539944 PREDNISONE Inactive PREDNISONE 20 MG TAB 2 tabs daily for 4 days, 1 tab daily for 4 days, 1/2 tab daily for 4 days PREDNISONE 20 MG TAB 314397 PREDNISONE Inactive PREDNISONE 10 MG TABS 1 tab po daily PREDNISONE 10 MG TABS 024877 PREDNISONE Inactive TYLENOL EXTRA STRENGTH 500 MG TABS as needed TYLENOL EXTRA STRENGTH 500 MG TABS 176248 ACETAMINOPHEN Inactive MUPIROCIN 2 % OINT apply to affected area BID x 14 days MUPIROCIN 2 % OINT 697686 MUPIROCIN Inactive MONTELUKAST SODIUM 10 MG TABS 1 tab po in the evening MONTELUKAST SODIUM 10 MG TABS 758317 MONTELUKAST SODIUM Inactive BENZONATATE 100 MG CAPS 1 cap po TID PRN BENZONATATE 100 MG CAPS 170966 BENZONATATE Inactive NEURONTIN 300 MG CAP 1 cap by mouth three times daily for restless leg 06/22 NEURONTIN 300 MG CAP 702577 GABAPENTIN Inactive LEVAQUIN 500 MG TAB 1 tablet by mouth daily LEVAQUIN 500 MG TAB 902718 LEVOFLOXACIN Inactive PREDNISONE 20 MG TAB 1 TID x 2 days, then 1 BID x 3 days, then 1 Daily x 3 days, then stop PREDNISONE 20 MG TAB 201126 PREDNISONE Inactive POTASSIUM CHLORIDE ER 10 MEQ CR-TABS take 1 tab po daily POTASSIUM CHLORIDE ER 10 MEQ CR-TABS POTASSIUM CHLORIDE Inactive PREDNISONE 20 MG TAB 1 tab twice daily for 3 day, then one daily for three days PREDNISONE 20 MG TAB 263619 PREDNISONE Inactive TESSALON PERLES 100 MG CAP 1 to 2 tablets by mouth 3 times daily as needed for cough TESSALON PERLES 100 MG CAP 823110 BENZONATATE Inactive POTASSIUM CHLORIDE CR 10 MEQ CPCR 1 capsule by mouth daily 02/14 POTASSIUM CHLORIDE CR 10 MEQ CPCR POTASSIUM CHLORIDE Inactive NITROSTAT 0.4 MG SUBL 1 tab under tongueas needed for chest pain ( may take 3 total, 5 min apart, then call 911) NITROSTAT 0.4 MG SUBL 431764 NITROGLYCERIN Inactive LOVASTATIN 40 MG TABS 1 pill by mouth nightly for cholesterol LOVASTATIN 40 MG TABS 602895 LOVASTATIN Inactive CEFDINIR 300 MG ORAL CAPS take 1 cap po bid x 10 days CEFDINIR 300 MG ORAL CAPS 668116 CEFDINIR Inactive ACEBUTOLOL HCL 200 MG CAPS 1 cap in the morning and 2 caps in the evening ACEBUTOLOL HCL 200 MG CAPS 424559 ACEBUTOLOL HCL Inactive VENTOLIN HFA 108 (90 BASE) MCG/ACT AERS 2 -4 puffs four times a day PRN 2013 VENTOLIN HFA 108 (90 BASE) MCG/ACT AERS ALBUTEROL SULFATE Inactive LEVAQUIN 500 MG ORAL TABS Take 1 tab po daily x 8 days LEVAQUIN 500 MG ORAL TABS 801457 LEVOFLOXACIN Inactive PREDNISONE 20 MG TAB 2 tabs daily for 4 days, 1 tab daily for 4 days, 1/2 tab daily for 4 days PREDNISONE 20 MG TAB 412997 PREDNISONE Inactive LOVASTATIN 40 MG ORAL TABS Take 1 tab po every hs LOVASTATIN 40 MG ORAL TABS 879351 LOVASTATIN Inactive DILAUDID 2 MG ORAL TABS Take 1/2 tab po every 4 hours as needed for pain 2014 DILAUDID 2 MG ORAL TABS 374135 HYDROMORPHONE HCL Inactive AMITRIPTYLINE HCL 25 MG ORAL TABS 1 q hs prn AMITRIPTYLINE HCL 25 MG ORAL TABS 391280 AMITRIPTYLINE HCL Inactive MECLIZINE HCL 25 MG TAB 1 tablet three times daily for 3 days, then 1/2 tab three times daily for 3 days. MECLIZINE HCL 25 MG TAB 188595 MECLIZINE HCL Inactive AMLODIPINE BESYLATE 5 MG ORAL TABS Take 1 tab po daily AMLODIPINE BESYLATE 5 MG ORAL TABS 426357 AMLODIPINE BESYLATE Inactive TOPIRAMATE 25 MG TABS 1 tab po BID TOPIRAMATE 25 MG TABS 727268 TOPIRAMATE Inactive PREDNISONE 20 MG TAB 1 tablet twice daily for 2 days, then 1 tablet once daily for 2 days PREDNISONE 20 MG TAB 795916 PREDNISONE Inactive PREDNISONE 20 MG TAB 1 tab twice daily for 3 day, then one daily for three days PREDNISONE 20 MG TAB 697538 PREDNISONE Inactive AZITHROMYCIN 250 MG TABS 2 po qd x 1 day, then 1 po qd x 4 days AZITHROMYCIN 250 MG TABS 5757307 AZITHROMYCIN Inactive AZITHROMYCIN 250 MG TABS 2 po qd x 1 day, then 1 po qd x 4 days AZITHROMYCIN 250 MG TABS 3959453 AZITHROMYCIN Inactive PREDNISONE 20 MG TAB 2 po qd x 5 days PREDNISONE 20 MG TAB 134315 PREDNISONE Inactive Vital Signs Date Name Value [...] Magnesium - Chemistry cholesterol, serum 180 mg/dL 161-078 7659/08/08 triglyceride, serum, fasting 92 mg/dL 30-200 HDL cholesterol, serum 66 mg/dL 32-96 LDL cholesterol, serum 96 mg/dL 0-130 sodium, serum 142 mmol/L 039-070 0332/08/08 carbon dioxide, venous blood 27.4 mmol/L 21.0-32.0 [...] 10.0-20.0 Encounters Code Encounter Date Provider Facility CPT-75579 Level 3 Est. Patient 09:58:58 CDT Harinder Cr [facility] CPT-09124 Level 3 Est. Patient 12:37:21 CDT Harinder Cr [facility] CPT-02110 Level 3 Est. Patient 18:37:17 CDT Harinder Cr [facility] CPT-18632 Level 4 Est. Patient 11:15:54 CDT Nettie Newberry [facility] CPT-94536 Level 3 Est. Patient 16:42:24 CDT Harinder Cr [facility] CPT-84058 Level 3 Est. Patient 15:03:36 CDT Harinder Cr [facility] CPT-76086 Level 3 Est. Patient 15:03:20 CDT Harinder Cr [facility] CPT-62168 Level 3 Est. Patient 12:14:34 CDT Harinder Cr [facility] CPT-53010 Level 3 Est. Patient 13:47:15 CDT Harinder Hernandez [facility] CPT-46709 Level 3 Est. Patient 14:08:24 CDT Harinder Hernandez [facility] CPT-50318 Level 3 Est. Patient 10:07:15 CDT Harinder Hernandez [facility] CPT-26863 Level 3 Est. Patient 10:06:59 CDT Harinder Hernandez [facility] CPT-99099 Level 3 Est. Patient 15:53:29 CDT Jae Morgan [facility] CPT-02843 Level 3 Est. Patient 17:19:04 CDT Harinder Hernandez [facility] CPT-25988 Level 3 Est. Patient 11:13:01 CDT Harinder Hernandez [facility] CPT-39238 Level 3 Est. Patient 09:03:58 CDT Harinder Hernandez [facility] CPT-75658 Level 3 Est. Patient 14:46:45 QA SOFTWARE TESTER Harinder Hernandez [facility] CPT-76794 Level 3 Est. Patient 09:35:49 QA SOFTWARE TESTER Harinder Shaye Hernandez [facility] CPT-21776 Level 3 Est. Patient 09:29:37 QA SOFTWARE TESTER Harinder Cr David [facility] CPT-67520 Level 3 Est. Patient 15:51:07 CDT Harinder Hernandez [facility] CPT-42550 Level 3 Est. Patient 18:13:13 CDT Harinder Cr David [facility] CPT-71269 Level 3 Est. Patient 10:44:19 CDT Harinder Hernandez [facility] CPT-83714 Level 4 Est. Patient 10:07:19 QA SOFTWARE TESTER Harinder Hernandez [facility] CPT-16308 Level 3 Est. Patient 15:59:32 QA SOFTWARE TESTER Harinder Hernandez [facility] Procedures Code Procedure Name Date Entry Date Standard Description CPT-58599 Microalbumin - LAB USE ONLY 11:52:05 CDT CPT-TCMM Transitional Care Mgmt-Moderate 11:33:57 CDT CPT-67898 No Charge Offi Visit 14:11:29 CDT CPT-55483 Magnesium - LAB USE ONLY 10:45:44 CDT CPT-07226 Lipid - LAB USE ONLY 10:45:44 CDT CPT-95372 CBC - LAB USE ONLY 10:45:44 CDT CPT-86157 Venipuncture Draw Fee 10:45:43 CDT CPT-14492 Venipuncture Draw Fee 18:21:27 CDT CPT-JTINJ Asp/Joint Injection 18:38:04 CDT CPT-06368 Immunization Each Additional Inj 17:38:04 CDT CPT-62006 Immunization Single Admin 17:38:04 CDT CPT-66637 Prevnar 13 17:38:04 CDT CPT-48768 Fluzone Quadrivalent preservative free (>=3yrs.) 17:38: 04 CDT CPT-04102 No Charge Offi Visit 11:14:03 CDT CPT-36829 Chest 2V Frontal and Lat 14:00:18 CDT CPT-OV Office Visit 16:10:28 CDT CPT-JTINJ Asp/Joint Injection 09:03:57 CDT CPT-Cryo Cryotherapy 09:35:49 QA SOFTWARE TESTER CPT-JTINJ Asp/Joint Injection 09:34:45 QA SOFTWARE TESTER CPT-J2930 Solu Medrol 125 mg (Methyl Prednisolone Sodium Succinate) 20:37:27 CDT CPT-91478 Abx/Therapy Injection 20:37:27 CDT CPT-76656 Port a cath flush 08:15:51 CDT CPT-11266 Port a cath flush 09:54:16 CDT CPT-94900 Port a cath flush 09:38:02 CDT CPT-01059 Port a cath flush 11:00:27 QA SOFTWARE TESTER
--- OUTSIDE RECORDS SUMMARY | 2017-12-29 06:17 | XMS REPORT | Clinical Summary ---
Author Author Admin, QIE Organization [facility] [employer] Address Unknown Phone Unavailable Allergies, Adverse [...] Active Harinder Hernandez DO SULFA Critical Active Harindre Hernandez DO PCN Critical Active Harinder Hernandez [...] then one daily for three days PREDNISONE [id number] Active Harinder Hernandez DO Active PREDNISONE 20 MG TAB 1 tablet twice daily for 2 days, then 1 tablet once daily for 2 days PREDNISONE 56916658517 No Longer Active Harinder Hernnadez DO Active ASMANEX 120 METERED DOSES 220 MCG/INH INH AEPB 2 puffs orally twice daily MOMETASONE FUROATE 26530478336 Active Jeri Sosa RPT,RMA Active NIFEDIPINE ER 30 MG ORAL [id number] 1 daily NIFEDIPINE 39927039922 Active Tawnya Pardo MA Active TOPIRAMATE 25 MG TABS 1 tab po BID TOPIRAMATE 60397625112 No Longer Active Nettie Newberry APRN Active AMLODIPINE BESYLATE 5 MG ORAL TABS Take 1 tab po daily AMLODIPINE BESYLATE 26092000969 No Longer Active Nettie Newberry APRN Active MECLIZINE HCL 25 MG TAB 1 tablet three times daily for 3 days, then 1/2 tab three times daily for 3 days. MECLIZINE HCL 11456827763 No Longer Active Nettie Newberry APRN Active AMITRIPTYLINE HCL 25 MG ORAL TABS 1 q hs prn AMITRIPTYLINE HCL 58769993780 No Longer Active Nettie Newberry APRN Active DILAUDID 2 MG ORAL TABS Take 1/2 tab po every 4 hours as needed for pain 2014 HYDROMORPHONE HCL 93141589534 No Longer Active Nettie Newberry APRN Active CLOPIDOGREL BISULFATE 75 MG ORAL TABS 1 tab by mouth once daily CLOPIDOGREL BISULFATE 55303412273 Active Jeri Sosa RPT,RMA Active ATORVASTATIN CALCIUM 10 MG ORAL TABS 1 at bedtime ATORVASTATIN CALCIUM 06320700318 Active Jeri Sosa RPT,RMA Active LOVASTATIN 40 MG ORAL TABS Take 1 tab po every hs LOVASTATIN 38353155269 No Longer Active Harinder Hernandez DO Active PREDNISONE 20 MG TAB 2 tabs daily for 4 days, 1 tab daily for 4 days, 1/2 tab daily for 4 days PREDNISONE 68891258887 No Longer Active Harinder Hernandez DO Active LEVAQUIN 500 MG ORAL TABS Take 1 tab po daily x 8 days LEVOFLOXACIN 50410774955 No Longer Active Harinder Hernandez DO Active VENTOLIN HFA 108 (90 BASE) MCG/ACT AERS 2 -4 puffs four times a day PRN 2013 ALBUTEROL SULFATE 42599579585 No Longer Active Jeri Sosa RPT,RMA Active ACEBUTOLOL HCL 200 MG CAPS 1 cap in the morning and 2 caps in the evening ACEBUTOLOL HCL 46524107537 No Longer Active Harinder Hernandez DO Active CEFDINIR 300 MG ORAL CAPS take 1 cap po bid x 10 days CEFDINIR 69980453633 No Longer Active Harinder Hernandez DO Active LOVASTATIN 40 MG TABS 1 pill by mouth nightly for cholesterol LOVASTATIN 94029465404 No Longer Active Nettie Newberry APRN Active NITROSTAT 0.4 MG SUBL 1 tab under tongueas needed for chest pain ( may take 3 total, 5 min apart, then call 911) NITROGLYCERIN 11120981259 No Longer Active Nettie Newberry APRN Active POTASSIUM CHLORIDE CR 10 MEQ CPCR 1 capsule by mouth daily 02/14 POTASSIUM CHLORIDE 24340460748 No Longer Active Nettie Newberry APRN Active TESSALON PERLES 100 MG CAP 1 to 2 tablets by mouth 3 times daily as needed for cough BENZONATATE 33505945642 No Longer Active Nettie Newberry APRN Active THEOPHYLLINE ER 200 MG ORAL [id number] Take 1 tab every 12 hours THEOPHYLLINE 04570872294 Active Jeri Sosa RPT,RMA Active PREDNISONE 20 MG TAB 2 po qd x 5 days PREDNISONE 40243206953 No Longer Active Jae Morgan MD Active AZITHROMYCIN 250 MG TABS 2 po qd x 1 day, then 1 po qd x 4 days AZITHROMYCIN 97373712252 No Longer Active aJe Morgan MD Active PREDNISONE 20 MG TAB 1 tab twice daily for 3 day, then one daily for three days PREDNISONE 32999056209 No Longer Active Jae Morgan MD Active SINGULAIR 10 MG TABS 1 pill by mouth every evening for breathing. MONTELUKAST SODIUM 51329470987 Active Tawnya Pardo MA Active TYLENOL 325 MG TAB 3 by mouth q4h as needed ACETAMINOPHEN 33231683448 Active Harinder Hernandez DO Active POTASSIUM CHLORIDE ER 10 MEQ CR-TABS take 1 tab po daily POTASSIUM CHLORIDE 84071264901 No Longer Active Harinder Hernandez DO Active PREDNISONE 20 MG TAB 1 TID x 2 days, then 1 BID x 3 days, then 1 Daily x 3 days, then stop PREDNISONE 28985799563 No Longer Active Jillina Frazell ROTARY DRILL OPERATOR Active LEVAQUIN 500 MG TAB 1 tablet by mouth daily LEVOFLOXACIN 81345839735 No Longer Active Jillina Frazell ROTARY DRILL OPERATOR Active NEURONTIN 300 MG CAP 1 cap by mouth three times daily for restless leg 06/22 GABAPENTIN 78540207175 No Longer Active Harinder Hernandez DO Active BENZONATATE 100 MG CAPS 1 cap po TID PRN BENZONATATE 49262503163 No Longer Active Harinder Hernandez DO Active MONTELUKAST SODIUM 10 MG TABS 1 tab po in the evening MONTELUKAST SODIUM 15279241957 No Longer Active Harinder Hernandez DO Active MUPIROCIN 2 % OINT apply to affected area BID x 14 days MUPIROCIN 91918270200 No Longer Active Harinder Hernandez DO Active TYLENOL EXTRA STRENGTH 500 MG TABS as needed ACETAMINOPHEN 48975088359 No Longer Active Harinder Hernandez DO Active PREDNISONE 10 MG TABS 1 tab po daily PREDNISONE 28771610357 No Longer Active Harinder Hernandez DO Active PREDNISONE 20 MG TAB 2 tabs daily for 4 days, 1 tab daily for 4 days, 1/2 tab daily for 4 days PREDNISONE 16514050424 No Longer Active Harinder Hernandez DO Active AZITHROMYCIN 250 MG TABS 2 po qd x 1 day, then 1 po qd x 4 days AZITHROMYCIN 98235203954 No Longer Active Harinder Hernandez DO Active PREDNISONE 20 MG TAB 3 tabs today, then 1 tab twice daily for 3 day, then one daily for three days PREDNISONE 32329860646 No Longer Active Harinder Hernandez DO Active NIFEDIAC CC 30 MG [id number] 1 tablet daily for raynaud's syndrome NIFEDIPINE 69726796208 No Longer Active Tawnya Pardo MA Active AMBIEN 10 MG TAB 1/2 tab by mouth at bedtime as needed for sleep ZOLPIDEM TARTRATE 79539752429 Active Harinder Hernandez DO Active CLONAZEPAM 1 MG TABS 1 tablet at bedtime for insomnia and restless legs 09/14 CLONAZEPAM 74475174645 Active Jeri Sosa RPT,RMA Active CLONAZEPAM 0.5 MG TABS 1 tab po daily CLONAZEPAM 62500735721 No Longer Active Harinder Hernandez DO Active PREDNISONE 10 MG TAB 1 tablet daily for COPD PREDNISONE 86444183392 Active Tawnya Pardo MA Active PROAIR HFA 108 (90 BASE) MCG/ACT AERS 2 puffs four times a day as needed 2012 ALBUTEROL SULFATE 70755787576 Active Tawnya Pardo MA Active FLOVENT HFA 110 MCG/ACT AERO 2 puffs inhaled b.i.d. FLUTICASONE PROPIONATE HFA 68549083254 Active Tawnya Pardo MA Active EPIPEN 0.3 MG/0.3ML URIEL DIRECTED EPINEPHRINE Active Jeri Sosa RPT,RMA Active ACIPHEX 20 MG TBEC 1 tab po daily RABEPRAZOLE SODIUM 09421926438 Active Tawnya Pardo MA Active CLONAZEPAM 0.5 MG TABS 1 tab po daily CLONAZEPAM 0.5 MG TABS 860499 CLONAZEPAM Inactive PREDNISONE 20 MG TAB 3 tabs today, then 1 tab twice daily for 3 day, then one daily for three days PREDNISONE 20 MG TAB 011657 PREDNISONE Inactive PREDNISONE 20 MG TAB 2 tabs daily for 4 days, 1 tab daily for 4 days, 1/2 tab daily for 4 days PREDNISONE 20 MG TAB 094492 PREDNISONE Inactive PREDNISONE 10 MG TABS 1 tab po daily PREDNISONE 10 MG TABS 485537 PREDNISONE Inactive TYLENOL EXTRA STRENGTH 500 MG TABS as needed TYLENOL EXTRA STRENGTH 500 MG TABS 163934 ACETAMINOPHEN Inactive MUPIROCIN 2 % OINT apply to affected area BID x 14 days MUPIROCIN 2 % OINT 204791 MUPIROCIN Inactive MONTELUKAST SODIUM 10 MG TABS 1 tab po in the evening MONTELUKAST SODIUM 10 MG TABS 20010818 MONTELUKAST SODIUM Inactive BENZONATATE 100 MG CAPS 1 cap po TID PRN BENZONATATE 100 MG CAPS 645849 BENZONATATE Inactive NEURONTIN 300 MG CAP 1 cap by mouth three times daily for restless leg 06/22 NEURONTIN 300 MG CAP 225943 GABAPENTIN Inactive LEVAQUIN 500 MG TAB 1 tablet by mouth daily LEVAQUIN 500 MG TAB 200766 LEVOFLOXACIN Inactive PREDNISONE 20 MG TAB 1 TID x 2 days, then 1 BID x 3 days, then 1 Daily x 3 days, then stop PREDNISONE 20 MG TAB 819289 PREDNISONE Inactive POTASSIUM CHLORIDE ER 10 MEQ CR-TABS take 1 tab po daily POTASSIUM CHLORIDE ER 10 MEQ CR-TABS POTASSIUM CHLORIDE Inactive PREDNISONE 20 MG TAB 1 tab twice daily for 3 day, then one daily for three days PREDNISONE 20 MG TAB 188267 PREDNISONE Inactive TESSALON PERLES 100 MG CAP 1 to 2 tablets by mouth 3 times daily as needed for cough TESSALON PERLES 100 MG CAP 243219 BENZONATATE Inactive POTASSIUM CHLORIDE CR 10 MEQ [...] nightly for cholesterol LOVASTATIN 40 MG TABS 263303 LOVASTATIN Inactive CEFDINIR 300 MG ORAL CAPS take 1 cap po bid x 10 days CEFDINIR 300 MG ORAL CAPS 902278 CEFDINIR Inactive ACEBUTOLOL HCL 200 MG CAPS 1 cap in the morning and 2 caps in the evening ACEBUTOLOL HCL 200 MG CAPS 412298 ACEBUTOLOL HCL Inactive VENTOLIN HFA 108 (90 BASE) MCG/ACT AERS 2 -4 puffs four times a day PRN 2013 VENTOLIN HFA 108 (90 BASE) MCG/ACT AERS ALBUTEROL SULFATE Inactive LEVAQUIN 500 MG ORAL TABS Take 1 tab po daily x 8 days LEVAQUIN 500 MG ORAL TABS 788570 LEVOFLOXACIN Inactive PREDNISONE 20 MG TAB 2 tabs daily for 4 days, 1 tab daily for 4 days, 1/2 tab daily for 4 days PREDNISONE 20 MG TAB 374069 PREDNISONE Inactive LOVASTATIN 40 MG ORAL TABS Take 1 tab po every hs LOVASTATIN 40 MG ORAL TABS 622212 LOVASTATIN Inactive DILAUDID 2 MG ORAL TABS Take 1/2 tab po every 4 hours as needed for pain 2014 DILAUDID 2 MG ORAL TABS 783525 HYDROMORPHONE HCL Inactive AMITRIPTYLINE HCL 25 MG ORAL TABS 1 q hs prn AMITRIPTYLINE HCL 25 MG ORAL TABS 344257 AMITRIPTYLINE HCL Inactive MECLIZINE HCL 25 MG TAB 1 tablet three times daily for 3 days, then 1/2 tab three times daily for 3 days. MECLIZINE HCL 25 MG TAB 542816 MECLIZINE HCL Inactive AMLODIPINE BESYLATE 5 MG ORAL TABS Take 1 tab po daily AMLODIPINE BESYLATE 5 MG ORAL TABS 933202 AMLODIPINE BESYLATE Inactive TOPIRAMATE 25 MG TABS 1 tab po BID TOPIRAMATE 25 MG TABS 786656 TOPIRAMATE Inactive PREDNISONE 20 MG TAB 1 tablet twice daily for 2 days, then 1 tablet once daily for 2 days PREDNISONE 20 MG TAB 391651 PREDNISONE Inactive AZITHROMYCIN 250 MG TABS 2 po qd x 1 day, then 1 po qd x 4 days AZITHROMYCIN 250 MG TABS 4191788 AZITHROMYCIN Inactive AZITHROMYCIN 250 MG TABS 2 po qd x 1 day, then 1 po qd x 4 days AZITHROMYCIN 250 MG TABS 9633324 AZITHROMYCIN Inactive PREDNISONE 20 MG TAB 2 po qd x 5 days PREDNISONE 20 MG TAB 353980 PREDNISONE Inactive Vital Signs Date Name Value [...] pressure, diastolic - 8462-4 72 mm[Hg] BP adna blood pressure, systolic - 8480-6 113 mm[Hg] [...] Panel - Chemistry sodium, serum 138 mmol/L 999-771 1213/09/24 potassium, serum 3.5 mmol/L 3.5-5.2 chloride, serum [...] Magnesium - Chemistry cholesterol, serum 180 mg/dL 468-600 8817/08/08 triglyceride, serum, fasting 92 mg/dL 30-200 HDL cholesterol, serum 66 mg/dL 32-96 LDL cholesterol, serum 96 mg/dL 0-130 sodium, serum 142 mmol/L 664-101 8595/08/08 carbon dioxide, venous blood 27.4 mmol/L 21.0-32.0 [...] 0.00-1.00 Encounters Code Encounter Date Provider Facility CPT-40736 Level 3 Est. Patient 09:58:58 CDT Harinder Hernandez [facility] CPT-62047 Level 3 Est. Patient 12:37:21 CDT Harinder Hernandez [facility] CPT-33655 Level 3 Est. Patient 18:37:17 CDT Harinder Hernandez [facility] CPT-90539 Level 4 Est. Patient 11:15:54 CDT Nettieog Newberry APRN [facility] CPT-07301 Level 3 Est. Patient 16:42:24 CDT Harinder Hernandez [facility] CPT-74958 Level 3 Est. Patient 15:03:36 CDT Harinder Hernandez [facility] CPT-38417 Level 3 Est. Patient 15:03:20 CDT Harinder Hernandez [facility] CPT-43069 Level 3 Est. Patient 12:14:34 CDT Harinder Shaye Hernandez [facility] CPT-19002 Level 3 Est. Patient 13:47:15 CDT Harinder Hernandez [facility] CPT-43439 Level 3 Est. Patient 14:08:24 CDT Harinder Hernandez [facility] CPT-64251 Level 3 Est. Patient 10:07:15 CDT Harinder Hernandez [facility] CPT-85740 Level 3 Est. Patient 10:06:59 CDT Harinder Hernandez [facility] CPT-85693 Level 3 Est. Patient 15:53:29 CDT Jae Morgan MD [facility] CPT-07353 Level 3 Est. Patient 17:19:04 CDT Harinder Cr David [facility] CPT-37588 Level 3 Est. Patient 11:13:01 CDT Harinder Cr [facility] CPT-14749 Level 3 Est. Patient 09:03:58 CDT Harinder Cr [facility] CPT-67195 Level 3 Est. Patient 14:46:45 CONTROL OPERATOR FLOW COAT Harinder Hernandez [facility] CPT-95503 Level 3 Est. Patient 09:35:49 CONTROL OPERATOR FLOW COAT Harinder Hernandez [facility] CPT-07211 Level 3 Est. Patient 09:29:37 CONTROL OPERATOR FLOW COAT Harinder Hernandez [facility] CPT-68439 Level 3 Est. Patient 15:51:07 CDT Harinder Hernandez [facility] CPT-78579 Level 3 Est. Patient 18:13:13 CDT Harinder Hernandez [facility] CPT-14796 Level 3 Est. Patient 10:44:19 CDT Harinder Hernandez [facility] CPT-48244 Level 4 Est. Patient 10:07:19 CONTROL OPERATOR FLOW COAT Harinder Hernandez [facility] CPT-38036 Level 3 Est. Patient 15:59:32 CONTROL OPERATOR FLOW COAT Harinder Cr [facility] Procedures Code Procedure Name Date Entry Date Standard Description CPT-64600 Magnesium - LAB USE ONLY 10:45:44 CDT CPT-78762 Lipid - LAB USE ONLY 10:45:44 CDT CPT-01057 CBC - LAB USE ONLY 10:45:44 CDT CPT-09976 Venipuncture Draw Fee 10:45:43 CDT CPT-79787 Venipuncture Draw Fee 18:21:27 CDT CPT-JTINJ Asp/Joint Injection 18:38:04 CDT CPT-11877 Immunization Each Additional Inj 17:38:04 CDT CPT-87448 Immunization Single Admin 17:38:04 CDT CPT-05363 Prevnar 13 17:38:04 CDT CPT-93301 Fluzone Quadrivalent preservative free (>=3yrs.) 17:38: 04 CDT CPT-43347 No Charge Offi Visit 11:14:03 CDT CPT-07967 Chest 2V Frontal and Lat 14:00:18 CDT CPT-OV Office Visit 16:10:28 CDT CPT-JTINJ Asp/Joint Injection 09:03:57 CDT CPT-Cryo Cryotherapy 09:35:49 CONTROL OPERATOR FLOW COAT CPT-JTINJ Asp/Joint Injection 09:34:45 CONTROL OPERATOR FLOW COAT CPT-J2930 Solu Medrol 125 mg (Methyl Prednisolone Sodium Succinate) 20:37:27 CDT CPT-33609 Abx/Therapy Injection 20:37:27 CDT CPT-67344 Port a cath flush 08:15:51 CDT CPT-31006 Port a cath flush 09:54:16 CDT CPT-31690 Port a cath flush 09:38:02 CDT CPT-74727 Port a cath flush 11:00:27 CONTROL OPERATOR FLOW COAT
--- OUTSIDE RECORDS SUMMARY | 2017-12-29 06:19 | XMS REPORT | Clinical Summary ---
Author Author Admin, KAIN Organization [facility] Address Unknown Phone Unavailable Allergies, Adverse [...] unspecified Restless leg syndrome 333.94 Active Harinder Hrenandez DO Restless legs syndrome (RLS) Breast mass, [...] positional vertigo Colon cancer screening V76.51 Active [facility] [employer]PERATION SUPERVISOR Screening for malignant neoplasms of colon Screening for malignant neoplasm, colon V76.51 Active [facility] CE[employer] OPERATION SUPERVISOR Screening for malignant neoplasms of colon Nausea and vomiting ICD-787.01 Inactive Jae Morgan MD Diarrhea ICD-787.91 Inactive Jae Morgan MD Medication List Medication Instructions Start Date Stop Date Generic Name NDC Status Provider Patient Instruction AMITRIPTYLINE HCL 25 MG ORAL TABS 1 q hs prn AMITRIPTYLINE HCL 21506335578 Active Nettie Newberry APRN Active LOVASTATIN 40 MG TABS 1 pill by mouth nightly for cholesterol LOVASTATIN 50688909114 No Longer Active Nettie Newberry APRN Active NITROSTAT 0.4 MG SUBL 1 tab under tongueas needed for chest pain ( may take 3 total, 5 min apart, then call 911) NITROGLYCERIN 35410266336 No Longer Active Nettie Newberry APRN Active POTASSIUM CHLORIDE CR 10 MEQ CPCR 1 capsule by mouth daily 02/14 POTASSIUM CHLORIDE 54290642220 No Longer Active Nettie Newberry APRN Active TESSALON PERLES 100 MG CAP 1 to 2 tablets by mouth 3 times daily as needed for cough BENZONATATE 35256244035 No Longer Active Nettie Newberry APRN Active THEOPHYLLINE ER 200 MG ORAL [id number] Take 1 tab every 12 hours THEOPHYLLINE 89154573776 Active Trixie Martin LPN Active PREDNISONE 20 MG TAB 2 po qd x 5 days PREDNISONE 00520240696 No Longer Active Jae Morgan MD Active AZITHROMYCIN 250 MG TABS 2 po qd x 1 day, then 1 po qd x 4 days AZITHROMYCIN 69915437213 No Longer Active Jae Morgan MD Active PREDNISONE 20 MG TAB 1 tab twice daily for 3 day, then one daily for three days PREDNISONE 53262550656 No Longer Active Jae Morgan MD Active MECLIZINE HCL 25 MG TAB 1 tablet three times daily for 3 days, then 1/2 tab three times daily for 3 days. MECLIZINE HCL 01432935442 Active Harinder Hernandez DO Active SINGULAIR 10 MG TABS 1 pill by mouth every evening for breathing. MONTELUKAST SODIUM 05598345730 Active Harinder Hernandez DO Active TYLENOL 325 MG TAB 3 by mouth q4h as needed ACETAMINOPHEN 36143549201 Active Harinder Hernandez DO Active POTASSIUM CHLORIDE ER 10 MEQ CR-TABS take 1 tab po daily POTASSIUM CHLORIDE 45416218619 No Longer Active Harinder Hernandez DO Active PREDNISONE 20 MG TAB 1 TID x 2 days, then 1 BID x 3 days, then 1 Daily x 3 days, then stop PREDNISONE 82957918528 No Longer Active Jillina Frazell CELL OPERATION SUPERVISOR Active LEVAQUIN 500 MG TAB 1 tablet by mouth daily LEVOFLOXACIN 34212814811 No Longer Active Jillina Frazell CELL OPERATION SUPERVISOR Active NEURONTIN 300 MG CAP 1 cap by mouth three times daily for restless leg 06/22 GABAPENTIN 94380624366 No Longer Active Harinder Hernandez DO Active BENZONATATE 100 MG CAPS 1 cap po TID PRN BENZONATATE 70538037860 No Longer Active Harinder Hernandez DO Active MONTELUKAST SODIUM 10 MG TABS 1 tab po in the evening MONTELUKAST SODIUM 04985766138 No Longer Active Harinder Hernandez DO Active MUPIROCIN 2 % OINT apply to affected area BID x 14 days MUPIROCIN 49579224662 No Longer Active Harinder Hernandez DO Active TYLENOL EXTRA STRENGTH 500 MG TABS as needed ACETAMINOPHEN 09273384142 No Longer Active Harinder Hernandez DO Active PREDNISONE 10 MG TABS 1 tab po daily PREDNISONE 13201654267 No Longer Active Harinder Hernandez DO Active PREDNISONE 20 MG TAB 2 tabs daily for 4 days, 1 tab daily for 4 days, 1/2 tab daily for 4 days PREDNISONE 88414952247 No Longer Active Harinder Hernandez DO Active AZITHROMYCIN 250 MG TABS 2 po qd x 1 day, then 1 po qd x 4 days AZITHROMYCIN 69758713706 No Longer Active Harinder Hernandez DO Active PREDNISONE 20 MG TAB 3 tabs today, then 1 tab twice daily for 3 day, then one daily for three days PREDNISONE 08355744477 No Longer Active Harinder Hernandez DO Active NIFEDIAC CC 30 MG [id number] 1 tablet daily for raynaud's syndrome NIFEDIPINE 82789227643 Active Lobito Smith MD Active AMBIEN 10 MG TAB 1/2 tab by mouth at bedtime as needed for sleep ZOLPIDEM TARTRATE 40459761833 Active Johny Dawkins MD Active VENTOLIN HFA 108 (90 BASE) MCG/ACT AERS 2 -4 puffs four times a day PRN 2013 ALBUTEROL SULFATE 59280614665 Active Lobito Smith MD Active CLONAZEPAM 1 MG TABS 1 tablet at bedtime for insomnia and restless legs 09/14 CLONAZEPAM 73170430506 Active Harinder Hernandez DO Active CLONAZEPAM 0.5 MG TABS 1 tab po daily CLONAZEPAM 84605776303 No Longer Active Harinder Hernandez DO Active PREDNISONE 10 MG TAB 1 tablet daily for COPD PREDNISONE 50959265913 Active Harinder Hernandez DO Active PROAIR HFA 108 (90 BASE) MCG/ACT AERS 2 puffs four times a day as needed 2012 ALBUTEROL SULFATE 58002029767 Active Harinder Hernandez DO Active FLOVENT HFA 110 MCG/ACT AERO 2 puffs inhaled b.i.d. FLUTICASONE PROPIONATE HFA 48394889738 Active Harinder Hernandez DO Active EPIPEN 0.3 MG/0.3ML URIEL DIRECTED EPINEPHRINE Active Demetrius JOHNSON Active ACIPHEX 20 MG TBEC 1 tab po daily RABEPRAZOLE SODIUM 86084528910 Active Harinder Hernandez DO Active TOPIRAMATE 25 MG TABS 1 tab po BID TOPIRAMATE 30723271873 Active Lobito Smith MD Active ACEBUTOLOL HCL 200 MG CAPS 1 cap in the morning and 2 caps in the evening ACEBUTOLOL HCL 14366055184 Active Harinder Hernandez DO Active CLONAZEPAM 0.5 MG TABS 1 tab po daily CLONAZEPAM 0.5 MG TABS 880781 CLONAZEPAM Inactive PREDNISONE 20 MG TAB 3 tabs today, then 1 tab twice daily for 3 day, then one daily for three days PREDNISONE 20 MG TAB 058811 PREDNISONE Inactive PREDNISONE 20 MG TAB 2 tabs daily for 4 days, 1 tab daily for 4 days, 1/2 tab daily for 4 days PREDNISONE 20 MG TAB 699702 PREDNISONE Inactive PREDNISONE 10 MG TABS 1 tab po daily PREDNISONE 10 MG TABS 000440 PREDNISONE Inactive TYLENOL EXTRA STRENGTH 500 MG TABS as needed TYLENOL EXTRA STRENGTH 500 MG TABS 572438 ACETAMINOPHEN Inactive MUPIROCIN 2 % OINT apply to affected area BID x 14 days MUPIROCIN 2 % OINT 079753 MUPIROCIN Inactive MONTELUKAST SODIUM 10 MG TABS 1 tab po in the evening MONTELUKAST SODIUM 10 MG TABS 849057 MONTELUKAST SODIUM Inactive BENZONATATE 100 MG CAPS 1 cap po TID PRN BENZONATATE 100 MG CAPS 694595 BENZONATATE Inactive NEURONTIN 300 MG CAP 1 cap by mouth three times daily for restless leg 06/22 NEURONTIN 300 MG CAP 367007 GABAPENTIN Inactive LEVAQUIN 500 MG TAB 1 tablet by mouth daily LEVAQUIN 500 MG TAB 601918 LEVOFLOXACIN Inactive PREDNISONE 20 MG TAB 1 TID x 2 days, then 1 BID x 3 days, then 1 Daily x 3 days, then stop PREDNISONE 20 MG TAB 682122 PREDNISONE Inactive POTASSIUM CHLORIDE ER 10 MEQ CR-TABS take 1 tab po daily POTASSIUM CHLORIDE ER 10 MEQ CR-TABS POTASSIUM CHLORIDE Inactive PREDNISONE 20 MG TAB 1 tab twice daily for 3 day, then one daily for three days PREDNISONE 20 MG TAB 778794 PREDNISONE Inactive TESSALON PERLES 100 MG CAP 1 to 2 tablets by mouth 3 times daily as needed for cough TESSALON PERLES 100 MG CAP 171595 BENZONATATE Inactive POTASSIUM CHLORIDE CR 10 MEQ [...] nightly for cholesterol LOVASTATIN 40 MG TABS 741975 LOVASTATIN Inactive AZITHROMYCIN 250 MG TABS 2 po qd x 1 day, then 1 po qd x 4 days AZITHROMYCIN 250 MG TABS 8289928 AZITHROMYCIN Inactive AZITHROMYCIN 250 MG TABS 2 po qd x 1 day, then 1 po qd x 4 days AZITHROMYCIN 250 MG TABS 8508652 AZITHROMYCIN Inactive PREDNISONE 20 MG TAB 2 po qd x 5 days PREDNISONE 20 MG TAB 729698 PREDNISONE Inactive Vital Signs Date Name Value [...] AUTO - Chemistry sodium, serum 141 mmol/L 824-899 4659/03/02 potassium, serum 3.4 mmol/L 3.5-5.2 chloride, serum [...] ... - Chemistry sodium, serum 139 mmol/L 766-881 9379/11/24 potassium, serum 4.0 mmol/L 3.5-5.2 chloride, serum [...] 1.93 m[iU]/mL 0.36-3.74 cholesterol, serum 248 mg/dL 054-301 2390/11/24 triglyceride, serum, fasting 104 mg/dL 30-200 HDL [...] 10.0-20.0 Encounters Code Encounter Date Provider Facility CPT-73990 Level 3 Est. Patient 10:07:15 CDT Harinedr Hernandez [facility] CPT-86330 Level 3 Est. Patient 10:06:59 CDT Harinder Hernandez [facility] CPT-45680 Level 3 Est. Patient 15:53:29 CDT Jae Morgan MD [facility] CPT-24577 Level 3 Est. Patient 17:19:04 CDT Harinder Hernandez [facility] CPT-47323 Level 3 Est. Patient 11:13:01 CDT Harinder Hernandez [facility] CPT-65267 Level 3 Est. Patient 09:03:58 CDT Harinder Hernandez [facility] CPT-36163 Level 3 Est. Patient 14:46:45 [employer] Harinder Hernandez [facility] CPT-84596 Level 3 Est. Patient 09:35:49 [employer] Harinder Hernandez [facility] CPT-51298 Level 3 Est. Patient 09:29:37 [employer] Harinder Hernandez [facility] CPT-30339 Level 3 Est. Patient 15:51:07 CDT Harinder Hernandez [facility] CPT-97460 Level 3 Est. Patient 18:13:13 CDT Harinder Hernandez [facility] CPT-86049 Level 3 Est. Patient 10:44:19 CDT Harinder Hernandez [facility] CPT-91993 Level 4 Est. Patient 10:07:19 [employer] Harinder Cr [facility] CPT-60680 Level 3 Est. Patient 15:59:32 [employer] Harinder Cr [facility] Procedures Code Procedure Name Date Entry Date Standard Description CPT-OV Office Visit 16:10:28 CDT CPT-JTINJ Asp/Joint Injection 09:03:57 CDT CPT-Cryo Cryotherapy 09:35:49 [employer] CPT-JTINJ Asp/Joint Injection 09:34:45 [employer] CPT-J2930 Solu Medrol 125 mg (Methyl Prednisolone Sodium Succinate) 20:37:27 CDT CPT-72482 Abx/Therapy Injection 20:37:27 CDT CPT-61499 Port a cath flush 08:15:51 CDT CPT-11903 Port a cath flush 09:54:16 CDT CPT-46391 Port a cath flush 09:38:02 CDT CPT-33076 Port a cath flush 11:00:27 [employer]
--- OUTSIDE RECORDS SUMMARY | 2017-12-29 06:21 | XMS REPORT | Continuity of Care Document ---
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 SUAZO MD Ot 493.90 04/05/2015 KELL SILVA MD Ot 397.0 04/05/2015 KELL SILVA MD Ot 424.0 04/05/2015 KELL SILVA MD Ot 427.89 04/05/2015 RICARDO CASTILLO, KELL Perry Ot 530.81 04/05/2015 KELL SILVA MD Ot 785.1 04/05/2015 KELL SILVA MD Ot 786.50 04/05/2015 KELL SILVA MD Ot 427.89 04/05/2015 KELL SILVA MD Ot 530.81 04/05/2015 KELL SILVA MD Ot 785.1 04/05/2015 KELL SILVA MD Ot 786.09 04/05/2015 KELL SILVA MD Ot 786.50 04/05/2015 JV CASTILLO, [facility] A Ot 041.11 04/05/2015 JV CASTILLO, [facility] A Ot 790.7 04/05/2015 JV CASTILLO, [facility] A Ot V58.62 04/05/2015 BENNIE MARQUEZ DO Yoselin Ot 996.74 OTH COMPL DUE TO OTH VASCULAR DEVICE,IMP 04/27/2015 JV CASTILLO, [facility] A Ot 041.11 04/27/2015 JV CASTILLO, [facility] A Ot 790.7 04/27/2015 JV CASTILLO, [facility] A Ot V58.62 07/14/2015 KELL SILVA MD Ot M79.89 07/14/2015 KELL SILVA MD Ot R00.2 07/14/2015 KELL SILVA MD Ot R06.02 07/14/2015 KELL SILVA MD Ot R07.89 07/14/2015 KELL SILVA MD Ot R00.2 07/14/2015 KELL SILVA MD Ot R06.02 07/14/2015 KELL SILVA MD Ot R07.89 07/14/2015 RICARDO CASTILLO, KELL Perry Ot M79.89 07/14/2015 KELL SILVA MD Ot R00.2 07/14/2015 KELL SILVA MD Ot R06.02 07/14/2015 KELL SILVA MD Ot R07.89 07/14/2015 KELL SILVA MD Ot R00.2 07/14/2015 KELL SILVA MD Ot R06.02 07/14/2015 KELL SILVA MD Ot R07.89 10/08/2015 Ot 459.81 10/08/2015 Ot V58.81 10/09/2015 Ot 496 10/09/2015 Ot V72.63 10/09/2015 Ot V74.8 10/09/2015 Ot 786.05 10/09/2015 Ot 414.00 10/09/2015 Ot 729.5 10/09/2015 Ot 780.52 10/09/2015 Ot 786.50 10/09/2015 Ot 724.2 10/09/2015 Ot V64.1 10/09/2015 Ot 722.10 10/09/2015 Ot 459.81 10/09/2015 Ot V58.81 10/09/2015 GABRIELE CASTILLO, MOISE Escamilla Ot 333.94 10/09/2015 GABRIELE CASTILLO, MOISE Escamilla Ot 346.90 10/09/2015 GABRIELE CASTILLO, MOISE Escamilla Ot 493.90 10/09/2015 RICARDO CASTILLO, KELL Perry Ot 397.0 10/09/2015 RICARDO CASTILLO, KELL Perry Ot 424.0 10/09/2015 RICARDO CASTILLO, KELL J Ot 427.89 10/09/2015 RICARDO CASTILLO, KELL J Ot 530.81 10/09/2015 RICARDO CASTILLO, KELL Perry Ot 785.1 10/09/2015 RICARDO CASTILLO, KELL Perry Ot 786.50 10/09/2015 RICARDO CASTILLO, KELL Perry Ot 427.89 10/09/2015 RICARDO CASTILLO, KELL J Ot 530.81 10/09/2015 RICARDO CASTILLO, KELL Perry Ot 785.1 10/09/2015 RICARDO CASTILLO, KELL Perry Ot 786.09 10/09/2015 RICARDO CASTILLO, KELL Perry Ot 786.50 10/09/2015 JV CASTILLO, ROBB A Ot 041.11 10/09/2015 JV CASTILLO, ROBB A Ot 790.7 10/09/2015 JV CASTILLO, ROBB A Ot V58.62 10/09/2015 RICARDO CASTILLO, KELL Perry Ot M79.89 10/09/2015 RICARDO CASTILLO, KELL Perry Ot R00.2 10/09/2015 RICARDO CASTILLO, KELL Perry Ot R06.02 10/09/2015 RICARDO CASTILLO, KELL Perry Ot R07.89 10/09/2015 RICARDO CASTILLO, KELL Perry Ot R00.2 10/09/2015 RICARDO CASTILLO, KELL Perry Ot R06.02 10/09/2015 KELL SILVA MD Ot R07.89 10/09/2015 BARRY HANLEY MD Ot E87.6 HYPOKALEMIA 10/09/2015 BARRY HANLEY MD Ot H53.2 DIPLOPIA 10/09/2015 BARRY HANLEY MD Ot J45.901 UNSPECIFIED ASTHMA WITH (ACUTE) EXACERBA 10/09/2015 BARRY HANLEY MD Ot K21.9 GASTRO-ESOPHAGEAL REFLUX DISEASE WITHOUT 10/09/2015 DAYAN CASTILLO, BARRY Oswald Ot R53.1 WEAKNESS 10/18/2015 Ot 459.81 10/18/2015 Ot V58.81 10/18/2015 Ot 459.81 10/18/2015 Ot V58.81 10/19/2015 DAYAN CASTILLO, BARRY Oswald Ot G81.91 10/19/2015 DAYAN CASTILLO, BARRY Oswald Ot G81.91 10/20/2015 DAYAN CASTILLO, BARRY Oswald Ot G81.91 10/20/2015 DAYAN CASTILLO, BARRY Oswald Ot E78.5 10/20/2015 DAYAN CASTILLO, BARRY Oswald Ot F41.9 10/20/2015 DAYAN CASTILLO, BARRY Oswald Ot F44.9 10/20/2015 BARRY HANLEY MD Ot G81.91 10/20/2015 DAYAN CASTILLO, BARRY Oswald Ot I10 10/20/2015 DAYAN CASTILLO, BARRY Oswald Ot I25.10 10/20/2015 DAYAN CASTILLO, BARRY Oswald Ot I63.9 10/20/2015 DAYAN CASTILLO, BARRY Oswald Ot J44.9 10/20/2015 DAYAN CASTILLO, BARRY Oswald Ot J45.909 10/20/2015 DAYAN CASTILLO, BARRY Oswald Ot K21.9 10/20/2015 BARRY HANLEY MD Ot R00.2 10/20/2015 BARRY HANLEY MD Ot R13.10 10/20/2015 DAYAN CASTILLO, BARRY Oswlad Ot R47.01 10/20/2015 DAYAN CASTILLO, BARRY Oswald Ot R47.1 10/20/2015 BARRY HANLEY MD Ot Z88.6 10/20/2015 BARRY HANLEY MD Ot Z88.8 10/21/2015 BARRY HANLEY MD Ot E78.5 HYPERLIPIDEMIA, UNSPECIFIED 10/21/2015 BARRY HANLEY MD Ot F41.9 ANXIETY DISORDER, UNSPECIFIED 10/21/2015 BARRY HANLEY MD Ot F44.9 DISSOCIATIVE AND CONVERSION DISORDER, UN 10/21/2015 DAYAN CASTILLO, BARRY Oswald Ot G81.91 HEMIPLEGIA, UNSPECIFIED AFFECTING RIGHT 10/21/2015 BARRY HANLEY MD Ot I10 ESSENTIAL (PRIMARY) HYPERTENSION 10/21/2015 BARRY HANLEY MD Ot I25.10 ATHSCL HEART DISEASE OF [place] CORONARY 10/21/2015 BARRY HANLEY MD Ot I63.9 CEREBRAL INFARCTION, UNSPECIFIED 10/21/2015 BARRY HANLEY MD Ot J44.9 CHRONIC OBSTRUCTIVE PULMONARY DISEASE, U 10/21/2015 BARRY HANLEY MD Ot J45.909 UNSPECIFIED ASTHMA, UNCOMPLICATED 10/21/2015 BARRY HANLEY MD Ot K21.9 GASTRO-ESOPHAGEAL REFLUX DISEASE WITHOUT 10/21/2015 BARRY HANLEY MD Ot R00.2 PALPITATIONS 10/21/2015 BARRY HANLEY MD Ot R13.10 DYSPHAGIA, UNSPECIFIED 10/21/2015 BARRY HANLEY MD Ot R47.01 APHASIA 10/21/2015 BARRY HANLEY MD Ot R47.1 DYSARTHRIA AND ANARTHRIA 10/21/2015 BARRY HANLEY MD Ot Z88.6 ALLERGY STATUS TO ANALGESIC AGENT STATUS 10/21/2015 BARRY HANLEY MD Ot Z88.8 ALLERGY STATUS TO OTH DRUG/MEDS/BIOL SUB 10/29/2015 GUILLERMO TOUSSAINT DO Ot F41.9 ANXIETY DISORDER, UNSPECIFIED 10/29/2015 GUILLERMO TOUSSAINT DO Ot F44.9 DISSOCIATIVE AND CONVERSION DISORDER, UN 10/31/2015 GUILLERMO TOUSSAINT DO Ot F41.9 ANXIETY DISORDER, UNSPECIFIED 10/31/2015 GUILLERMO TOUSSAINT DO Ot F44.9 DISSOCIATIVE AND CONVERSION DISORDER, UN 11/01/2015 Ot 496 CHR AIRWAY OBSTRUCT NEC 11/01/2015 Ot V72.63 PRE- PROCEDURAL LABORATORY EXAMINATION 11/01/2015 Ot V74.8 SCREEN- BACTERIAL DIS NEC 11/01/2015 Ot 786.05 SHORTNESS OF BREATH 11/01/2015 Ot 414.00 CORON ATHEROSCLER NOS TYPE VESSEL, NATIV 11/01/2015 Ot 729.5 PAIN IN LIMB 11/01/2015 Ot 780.52 INSOMNIA, UNSPECIFIED 11/01/2015 Ot 786.50 CHEST PAIN NOS 11/01/2015 Ot 724.2 LUMBAGO 11/01/2015 Ot V64.1 NO PROC/ CONTRAINDICATION 11/01/2015 Ot 722.10 LUMBAR DISC DISPLACEMENT 11/01/2015 Ot 459.81 VENOUS INSUFFICIENCY NOS 11/01/2015 Ot V58.81 FIT/ADJ VASCULAR CATHETER 11/01/2015 MOISE SUAZO MD Ot 333.94 RESTLESS LEGS SYNDROME 11/01/2015 MOISE SUAZO MD Ot 346.90 MIGRAINE UNSPECIFIED W/O INTRACT MGRN W/ 11/01/2015 MOISE SUAZO MD Ot 493.90 ASTHMA, UNSPECIFIED 11/01/2015 KELL SILVA MD Ot 397.0 TRICUSPID VALVE DISEASE 11/01/2015 KELL SILVA MD Ot 424.0 MITRAL VALVE DISORDER 11/01/2015 KELL SILVA MD Ot 427.89 CARDIAC DYSRHYTHMIAS NEC 11/01/2015 KELL SILVA MD Ot 530.81 ESOPHAGEAL REFLUX 11/01/2015 KELL SILVA MD Ot 785.1 PALPITATIONS 11/01/2015 KELL SILVA MD Ot 786.50 CHEST PAIN NOS 11/01/2015 KELL SILVA MD Ot 427.89 CARDIAC DYSRHYTHMIAS NEC 11/01/2015 KELL SILVA MD Ot 530.81 ESOPHAGEAL REFLUX 11/01/2015 KELL SILVA MD Ot 785.1 PALPITATIONS 11/01/2015 KELL SILVA MD Ot 786.09 RESPIRATORY ABNORM NEC 11/01/2015 KELL SILVA MD Ot 786.50 CHEST PAIN NOS 11/01/2015 JV CASTILLO, ROBB A Ot 041.11 METHICILLIN SUSCEPTIBLE STAPHYLOCOCCUS A 11/01/2015 JV CASTILLO, ROBB A Ot 790.7 BACTEREMIA 11/01/2015 JV CASTILLO, ROBB A Ot V58.62 ENCOUNT FOR LONG-TERM(CURRENT) USE OF AN 11/01/2015 KELL SILVA MD Ot M79.89 OTHER SPECIFIED SOFT TISSUE DISORDERS 11/01/2015 KELL SILVA MD Ot R00.2 PALPITATIONS 11/01/2015 KELL SILVA MD Ot R06.02 SHORTNESS OF BREATH 11/01/2015 KELL SILVA MD Ot R07.89 OTHER CHEST PAIN 11/01/2015 KELL SILVA MD Ot R00.2 PALPITATIONS 11/01/2015 KELL SILVA MD Ot R06.02 SHORTNESS OF BREATH 11/01/2015 KELL SILVA MD Ot R07.89 OTHER CHEST PAIN 11/02/2015 JANIE FRANCOIS MD Ot E87.6 HYPOKALEMIA 11/02/2015 JANIE FRANCOIS MD Ot R11.2 NAUSEA WITH VOMITING, UNSPECIFIED 11/02/2015 JANIE FRANCOIS MD Ot R53.1 WEAKNESS 11/02/2015 JANIE FRANCOIS MD Ot E87.6 HYPOKALEMIA 11/02/2015 JANIE FRANCOIS MD Ot R11.2 NAUSEA WITH VOMITING, UNSPECIFIED 11/02/2015 JANIE FRANCOIS MD Ot R53.1 WEAKNESS 11/05/2015 Ot 496 CHR AIRWAY OBSTRUCT NEC 11/05/2015 Ot V72.63 PRE- PROCEDURAL LABORATORY EXAMINATION 11/05/2015 Ot V74.8 SCREEN- BACTERIAL DIS NEC 11/05/2015 Ot 786.05 SHORTNESS OF BREATH 11/05/2015 Ot 414.00 CORON ATHEROSCLER NOS TYPE VESSEL, NATIV 11/05/2015 Ot 729.5 PAIN IN LIMB 11/05/2015 Ot 780.52 INSOMNIA, UNSPECIFIED 11/05/2015 Ot 786.50 CHEST PAIN NOS 11/05/2015 Ot 724.2 LUMBAGO 11/05/2015 Ot V64.1 NO PROC/ CONTRAINDICATION 11/05/2015 Ot 722.10 LUMBAR DISC DISPLACEMENT 11/05/2015 Ot 459.81 VENOUS INSUFFICIENCY NOS 11/05/2015 Ot V58.81 FIT/ADJ VASCULAR CATHETER 11/05/2015 MOISE SUAZO MD Ot 333.94 RESTLESS LEGS SYNDROME 11/05/2015 MOISE SUAZO MD Ot 346.90 MIGRAINE UNSPECIFIED W/O INTRACT MGRN W/ 11/05/2015 MOISE SUAZO MD Ot 493.90 ASTHMA, UNSPECIFIED 11/05/2015 KELL SILVA MD Ot 397.0 TRICUSPID VALVE DISEASE 11/05/2015 KELL SILVA MD Ot 424.0 MITRAL VALVE DISORDER 11/05/2015 KELL SILVA MD Ot 427.89 CARDIAC DYSRHYTHMIAS NEC 11/05/2015 KELL SILVA MD Ot 530.81 ESOPHAGEAL REFLUX 11/05/2015 KELL SILVA MD Ot 785.1 PALPITATIONS 11/05/2015 KELL SILVA MD Ot 786.50 CHEST PAIN NOS 11/05/2015 KELL SILVA MD Ot 427.89 CARDIAC DYSRHYTHMIAS NEC 11/05/2015 KELL SILVA MD Ot 530.81 ESOPHAGEAL REFLUX 11/05/2015 KELL SILVA MD Ot 785.1 PALPITATIONS 11/05/2015 KELL SILVA MD Ot 786.09 RESPIRATORY ABNORM NEC 11/05/2015 KELL SILVA MD Ot 786.50 CHEST PAIN NOS 11/05/2015 JV CASTILLO, ROBB Hadley Ot 041.11 METHICILLIN SUSCEPTIBLE STAPHYLOCOCCUS A 11/05/2015 JV CASTILLO, ROBB A Ot 790.7 BACTEREMIA 11/05/2015 JV CASTILLO, ROBB Hadley Ot V58.62 ENCOUNT FOR LONG-TERM(CURRENT) USE OF AN 11/05/2015 KELL SILVA MD Ot M79.89 OTHER SPECIFIED SOFT TISSUE DISORDERS 11/05/2015 KELL SILVA MD Ot R00.2 PALPITATIONS 11/05/2015 KELL SILVA MD Ot R06.02 SHORTNESS OF BREATH 11/05/2015 KELL SILVA MD Ot R07.89 OTHER CHEST PAIN 11/05/2015 KELL SILVA MD Ot R00.2 PALPITATIONS 11/05/2015 KELL SILVA MD Ot R06.02 SHORTNESS OF BREATH 11/05/2015 KELL SILVA MD Ot R07.89 OTHER CHEST PAIN 11/13/2015 Ot 459.81 VENOUS INSUFFICIENCY NOS 11/13/2015 Ot V58.81 FIT/ADJ VASCULAR CATHETER 11/13/2015 GUILLERMO TOUSSAINT DO Ot E87.6 HYPOKALEMIA 11/13/2015 GUILLERMO TOUSSAINT DO Ot F41.9 ANXIETY DISORDER, UNSPECIFIED 11/13/2015 GUILLERMO TOUSSAINT DO Ot F44.9 DISSOCIATIVE AND CONVERSION DISORDER, UN 11/13/2015 GUILLERMO TOUSSAINT DO Ot K55.1 CHRONIC VASCULAR DISORDERS OF INTESTINE 11/13/2015 GUILLERMO TOUSSAINT DO Ot N39.0 URINARY TRACT INFECTION, SITE NOT SPECIF 01/01/2016 Ot G43.909 MIGRAINE, UNSP, NOT INTRACTABLE, WITHOUT 03/08/2016 ANNY CASTILLO, MATY Wyatt Ot G45.9 TRANSIENT CEREBRAL ISCHEMIC ATTACK, UNSP 03/08/2016 MATY MCCORMICK MD Ot I69.998 OTHER SEQUELAE FOLLOWING UNSPECIFIED CER 03/08/2016 MATY MCCORMICK MD Ot R41.82 ALTERED MENTAL STATUS, UNSPECIFIED 03/08/2016 MATY MCCORMICK MD Ot Z79.02 [facility] (CURRENT) USE OF 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 03/12/2016 MATY MCCORMICK MD Ot G45.9 TRANSIENT CEREBRAL ISCHEMIC ATTACK, UNSP 03/12/2016 MATY MCCORMICK MD Ot I69.998 OTHER SEQUELAE FOLLOWING UNSPECIFIED CER 03/12/2016 MATY MCCORMICK MD, Ot R41.82 ALTERED MENTAL STATUS, UNSPECIFIED 03/12/2016 MATY MCCORMICK MD Ot 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 04/04/2016 Ot 496 CHR AIRWAY OBSTRUCT NEC 04/04/2016 Ot V72.63 PRE- PROCEDURAL LABORATORY EXAMINATION 04/04/2016 Ot V74.8 SCREEN- BACTERIAL DIS NEC 04/04/2016 Ot 786.05 SHORTNESS OF BREATH 04/04/2016 Ot 414.00 CORON ATHEROSCLER NOS TYPE VESSEL, NATIV 04/04/2016 Ot 729.5 PAIN IN LIMB 04/04/2016 Ot 780.52 INSOMNIA, UNSPECIFIED 04/04/2016 Ot 786.50 CHEST PAIN NOS 04/04/2016 Ot 724.2 LUMBAGO 04/04/2016 Ot V64.1 NO PROC/ CONTRAINDICATION 04/04/2016 Ot 722.10 LUMBAR DISC DISPLACEMENT 04/04/2016 Ot 459.81 VENOUS INSUFFICIENCY NOS 04/04/2016 Ot V58.81 FIT/ADJ VASCULAR CATHETER 04/04/2016 MOISE SUAZO MD Ot 333.94 RESTLESS LEGS SYNDROME 04/04/2016 MOISE SUAZO MD Ot 346.90 MIGRAINE UNSPECIFIED W/O INTRACT MGRN W/ 04/04/2016 MOISE SUAZO MD Ot 493.90 ASTHMA, UNSPECIFIED 04/04/2016 KELL SILVA MD Ot 397.0 TRICUSPID VALVE DISEASE 04/04/2016 KELL SILVA MD Ot 424.0 MITRAL VALVE DISORDER 04/04/2016 KELL SILVA MD Ot 427.89 CARDIAC DYSRHYTHMIAS NEC 04/04/2016 KELL SILVA MD Ot 530.81 ESOPHAGEAL REFLUX 04/04/2016 KELL SILVA MD Ot 785.1 PALPITATIONS 04/04/2016 KELL SILVA MD Ot 786.50 CHEST PAIN NOS 04/04/2016 KELL SILVA MD Ot 427.89 CARDIAC DYSRHYTHMIAS NEC 04/04/2016 KELL SILVA MD Ot 530.81 ESOPHAGEAL REFLUX 04/04/2016 KELL SILVA MD Ot 785.1 PALPITATIONS 04/04/2016 KELL SILVA MD Ot 786.09 RESPIRATORY ABNORM NEC 04/04/2016 KELL SILVA MD Ot 786.50 CHEST PAIN NOS 04/04/2016 JV CASTILLO, ROBB Hadley Ot 041.11 METHICILLIN SUSCEPTIBLE STAPHYLOCOCCUS A 04/04/2016 JV CASTILLO, ROBB A Ot 790.7 BACTEREMIA 04/04/2016 JV CASTILLO, ROBB Hadley Ot V58.62 ENCOUNT FOR LONG-TERM(CURRENT) USE OF AN 04/04/2016 KELL SILVA MD Ot M79.89 OTHER SPECIFIED SOFT TISSUE DISORDERS 04/04/2016 KELL SILVA MD Ot R00.2 PALPITATIONS 04/04/2016 KELL SILVA MD Ot R06.02 SHORTNESS OF BREATH 04/04/2016 KELL SILVA MD Ot R07.89 OTHER CHEST PAIN 04/04/2016 KELL SILVA MD Ot R00.2 PALPITATIONS 04/04/2016 KELL SILVA MD Ot R06.02 SHORTNESS OF BREATH 04/04/2016 KELL SILVA MD Ot R07.89 OTHER CHEST PAIN 04/05/2016 ADITYA GUIDRY MD Ot E04.1 NONTOXIC SINGLE THYROID NODULE 04/05/2016 ADITYA GUIDRY MD Ot R13.10 DYSPHAGIA, UNSPECIFIED 04/05/2016 ADITYA GUIDRY MD Ot E04.1 NONTOXIC SINGLE THYROID NODULE 04/05/2016 ADITYA GUIDRY MD Ot R13.10 DYSPHAGIA, UNSPECIFIED 04/05/2016 ADITYA GUIDRY MD Ot E04.1 NONTOXIC SINGLE THYROID NODULE 04/05/2016 ADITYA GUIDRY MD Ot R13.10 DYSPHAGIA, UNSPECIFIED 04/06/2016 ADITYA GUIDRY MD Ot E04.1 NONTOXIC SINGLE THYROID NODULE 04/06/2016 ADITYA GUIDRY MD Ot R13.10 DYSPHAGIA, UNSPECIFIED 04/17/2016 Ot 496 CHR AIRWAY OBSTRUCT NEC 04/17/2016 Ot V72.63 PRE- PROCEDURAL LABORATORY EXAMINATION 04/17/2016 Ot V74.8 SCREEN- BACTERIAL DIS NEC 04/17/2016 Ot 786.05 SHORTNESS OF BREATH 04/17/2016 Ot 414.00 CORON ATHEROSCLER NOS TYPE VESSEL, NATIV 04/17/2016 Ot 729.5 PAIN IN LIMB 04/17/2016 Ot 780.52 INSOMNIA, UNSPECIFIED 04/17/2016 Ot 786.50 CHEST PAIN NOS 04/17/2016 Ot 724.2 LUMBAGO 04/17/2016 Ot V64.1 NO PROC/ CONTRAINDICATION 04/17/2016 Ot 722.10 LUMBAR DISC DISPLACEMENT 04/17/2016 Ot 459.81 VENOUS INSUFFICIENCY NOS 04/17/2016 Ot V58.81 FIT/ADJ VASCULAR CATHETER 04/17/2016 GABRIELE CASTILLO, MOISE Escamilla Ot 333.94 RESTLESS LEGS SYNDROME 04/17/2016 MOISE SUAZO MD Ot 346.90 MIGRAINE UNSPECIFIED W/O INTRACT MGRN W/ 04/17/2016 MOISE SUAZO MD Ot 493.90 ASTHMA, UNSPECIFIED 04/17/2016 KELL SILVA MD Ot 397.0 TRICUSPID VALVE DISEASE 04/17/2016 KELL SILVA MD Ot 424.0 MITRAL VALVE DISORDER 04/17/2016 KELL SILVA MD Ot 427.89 CARDIAC DYSRHYTHMIAS NEC 04/17/2016 KELL SILVA MD Ot 530.81 ESOPHAGEAL REFLUX 04/17/2016 KELL SILVA MD Ot 785.1 PALPITATIONS 04/17/2016 KELL SILVA MD Ot 786.50 CHEST PAIN NOS 04/17/2016 KELL SILVA MD Ot 427.89 CARDIAC DYSRHYTHMIAS NEC 04/17/2016 KELL SILVA MD Ot 530.81 ESOPHAGEAL REFLUX 04/17/2016 KELL SILVA MD Ot 785.1 PALPITATIONS 04/17/2016 KELL SILVA MD Ot 786.09 RESPIRATORY ABNORM NEC 04/17/2016 KELL SILVA MD Ot 786.50 CHEST PAIN NOS 04/17/2016 JV CASTILLO, ROBB A Ot 041.11 METHICILLIN SUSCEPTIBLE STAPHYLOCOCCUS A 04/17/2016 JV CASTILLO, ROBB A Ot 790.7 BACTEREMIA 04/17/2016 JV CASTILLO, ROBB Hadley Ot V58.62 ENCOUNT FOR LONG-TERM(CURRENT) USE OF AN 04/17/2016 KELL SILVA MD Ot M79.89 OTHER SPECIFIED SOFT TISSUE DISORDERS 04/17/2016 KELL SILVA MD Ot R00.2 PALPITATIONS 04/17/2016 KELL SILVA MD Ot R06.02 SHORTNESS OF BREATH 04/17/2016 KELL SILVA MD Ot R07.89 OTHER CHEST PAIN 04/17/2016 KELL SILVA MD Ot R00.2 PALPITATIONS 04/17/2016 KELL SILVA MD Ot R06.02 SHORTNESS OF BREATH 04/17/2016 KELL SILVA MD Ot R07.89 OTHER CHEST PAIN 04/17/2016 ADITYA GUIDRY MD Ot E04.1 NONTOXIC SINGLE THYROID NODULE 04/17/2016 ADITYA GUIDRY MD Ot R13.10 DYSPHAGIA, UNSPECIFIED 04/25/2016 ADITYA GUIDRY MD P Ot E04.2 NONTOXIC MULTINODULAR GOITER 04/25/2016 ADITYA GUIDRY MD Ot E04.1 NONTOXIC SINGLE THYROID NODULE 04/25/2016 ADITYA GUIDRY MD Ot R13.10 DYSPHAGIA, UNSPECIFIED 05/07/2016 ADITYA GUIDRY MD P Ot E04.1 NONTOXIC SINGLE THYROID NODULE 05/07/2016 ADITYA GUIDRY MD Ot R13.10 DYSPHAGIA, UNSPECIFIED 05/09/2016 ADITYA GUIDRY MD P Ot E04.2 NONTOXIC MULTINODULAR GOITER 05/23/2016 ADITYA GUIDRY MD P Ot E04.2 NONTOXIC MULTINODULAR GOITER 06/10/2016 SUSSY MELISSA DO Ot D64.9 ANEMIA, UNSPECIFIED 06/10/2016 SUSSY MELISSA DO Ot D72.829 ELEVATED WHITE BLOOD CELL COUNT, UNSPECI 06/10/2016 SUSSY MELISSA DO Ot E78.5 HYPERLIPIDEMIA, UNSPECIFIED 06/10/2016 SUSSY MELISSA DO Ot E87.6 HYPOKALEMIA 06/10/2016 SUSSY MELISSA DO Ot F41.9 ANXIETY DISORDER, UNSPECIFIED 06/10/2016 SUSSY MELISSA DO Ot F44.9 DISSOCIATIVE AND CONVERSION DISORDER, UN 06/10/2016 SUSSY MELISSA DO Ot I25.10 ATHSCL HEART DISEASE OF [place] CORONARY 06/10/2016 SUSSY MELISSA DO Ot I49.9 CARDIAC ARRHYTHMIA, UNSPECIFIED 06/10/2016 SUSSY MELISSA DO Ot J40 BRONCHITIS, NOT SPECIFIED ACUTE OR CH 06/10/2016 SUSSY MLEISSA DO Ot J44.0 CHRONIC OBSTRUCTIVE PULMON DISEASE W ACU 06/10/2016 SUSSY MELISSA DO Ot J44.1 CHRONIC OBSTRUCTIVE PULMONARY DISEASE W 06/10/2016 SUSSY MELISSA DO Ot K21.9 GASTRO-ESOPHAGEAL REFLUX DISEASE WITHOUT 06/10/2016 SUSSY MELISSA DO Ot K58.9 IRRITABLE BOWEL SYNDROME WITHOUT DIARRHE 06/10/2016 SUSSY MELISSA DO Ot T38.0X5A ADVERSE EFFECT OF GLUCOCORT/SYNTH ANALOG 06/10/2016 SUSSY MELISSA DO Ot Z77.22 CNTCT W AND EXPSR TO ENVIRON TOBACCO SMO 06/10/2016 SUSSY MELISSA DO Ot Z88.8 ALLERGY STATUS TO OTH DRUG/MEDS/BIOL SUB 07/11/2016 BARRY HANLEY MD Ot E87.6 HYPOKALEMIA 07/11/2016 BARRY HANLEY MD Ot J44.9 CHRONIC OBSTRUCTIVE PULMONARY DISEASE, U 07/11/2016 BARRY HANLEY MD Ot R10.9 UNSPECIFIED ABDOMINAL PAIN 08/20/2016 ADITYA GUIDRY MD Ot E04.2 NONTOXIC MULTINODULAR GOITER 08/20/2016 ADITYA GUIDRY MD Ot E04.2 NONTOXIC MULTINODULAR GOITER 08/20/2016 ADITYA GUIDRY MD Ot E04.2 NONTOXIC MULTINODULAR GOITER 08/20/2016 ADITYA GUIDRY MD Ot E04.2 NONTOXIC MULTINODULAR GOITER 08/23/2016 ADITYA GUIDRY MD Ot E04.2 NONTOXIC MULTINODULAR GOITER 09/10/2016 ADITYA GUIDRY MD Ot E04.2 NONTOXIC MULTINODULAR GOITER 09/12/2016 KELL SILVA MD Ot R07.89 OTHER CHEST PAIN 09/12/2016 KELL SILVA MD Ot R07.89 OTHER CHEST PAIN 09/13/2016 KELL SILVA MD Ot I65.23 OCCLUSION AND STENOSIS OF BILATERAL GOSS 09/13/2016 KELL SILVA MD Ot R00.2 PALPITATIONS 09/13/2016 KELL SILVA MD Ot R06.02 SHORTNESS OF BREATH 09/13/2016 KELL SILVA MD Ot R07.89 OTHER CHEST PAIN 09/19/2016 CHAO CASTILLO, ADITYA Hughes Ot E04.2 NONTOXIC MULTINODULAR GOITER 10/04/2016 KELL SILVA MD Ot I65.23 OCCLUSION AND STENOSIS OF BILATERAL GOSS 10/04/2016 KELL SILVA MD Ot R00.2 PALPITATIONS 10/04/2016 KELL SILVA MD Ot R06.02 SHORTNESS OF BREATH 10/04/2016 KELL SILVA MD Ot R07.89 OTHER CHEST PAIN 10/12/2016 KELL SILVA MD Ot I65.23 OCCLUSION AND STENOSIS OF BILATERAL GOSS 10/12/2016 EKLL SILVA MD Ot R00.2 PALPITATIONS 10/12/2016 KELL SILVA MD Ot R06.02 SHORTNESS OF BREATH 10/12/2016 KELL SILVA MD Ot R07.89 OTHER CHEST PAIN 02/18/2017 Harinder Welch DO M79.606 Right leg pain 02/18/2017 Harinder Welch DO R10.9 Abdominal pain 08/08/2017 Harinder Welch DO J06.9 Viral upper respiratory tract infection 08/22/2017 Harinder Welch DO A08.4 Gastroenteritis, viral, acute 08/22/2017 Harinder Welch DO J06.9 U R I 08/22/2017 Harinder Welch DO R53.1 Weakness 10/03/2017 Harinder Welch DO E89.40 Menopause, surgical 12/26/2017 Harinder Welch DO Z68.22 Body Mass Index 22.0-22.9 Adult Procedures Code Description Performed By Performed On 37.22 02/08/2011 88.42 02/08/2011 88.53 02/08/2011 88.56 02/08/2011 96.04 02/08/2011 96.71 02/08/2011 37993 OXIMETRY 08/23/2012 46515 CMP 05/01/2013 11060 LIPID PANEL 05/01/2013 15812 A1C (IN-HOUSE) 05/01/2013 94218 TSH 05/01/2013 80125 CBC 05/01/2013 90857 UA W/ CULTURE IF INDICATED 06/09/2013 [id number] 10/18/2015 63980 INS CVP CENT SUB Q PORT >5 11/07/2015 17914 CHEST X-RAY 11/07/2015 19753 FLOURO GUIDANCE FOR CVP 11/07/2015 C1751 CATH, INF, PER/CENT/MIDLINE 11/07/2015 C1892 INTRO/SHEATH,FIXED,PEEL- AWAY 11/07/2015 C9290 INJ, BUPIVICAINE LIPOSOME 11/07/2015 J0690 CEFAZOLIN SODIUM INJECTION 11/07/2015 J1642 INJ HEPARIN SODIUM PER 10 U 11/07/2015 J2250 INJ MIDAZOLAM HYDROCHLORIDE 11/07/2015 J2704 INJ, PROPOFOL, 10 MG 11/07/2015 J3010 FENTANYL CITRATE INJECITON 11/07/2015 J7120 RINGERS LACTATE INFUSION 11/07/2015 Results Test Result Range CBC WITH DIFF - 08/02/14 00:00 BASO% 0.4 % 0-2 EOS% 1.3 % 0-7.0 HCT 40.5 % 36.9-47.0 HGB 13.9 G/DL 12.0-16.0 LYMPH% 30.6 % 20-40 MCH 32.6 PG 27-31 MCHC 34.3 G/DL 33-37 MCV 94.8 FL 81-99 MONO% 7.8 % 0-10.0 MPV 9.8 FL 7.3-10.4 NEUTRO% 59.9 % 40-70 PLT 255 10^3u 130-400 RBC 4.3 10^6u 4.2-5.4 RDW 13.2 % 11.5-15.5 WBC 8.5 10^3u 4.8-10.8 NEUTRO# 5.1 10^3u 1.5-7.5 LYMPH# 2.6 10^3u 0.9-4.0 MONO# 0.7 10^3u 0-0.8 EOS# 0.1 10^3u 0-0.6 BASO# 0.0 10^3u 0-0.1 CMP - 08/02/14 00:00 ALB 4.0 G/DL 3.5-5 ALP 101 IU/L 25-72 ALT 24 IU/L 12-65 AST 17 IU/L 10-42 BCR 9.2 10-20 BUN 10 MG/DL 7-18 CA 9.8 MG/DL 8.4-10.2 CL 101 MEQ/L 98-107 CO2 23.1 MEQ/L 22-28 CREA 1.09 MG/DL 0.6-1.0 EGFR 51 eGFR >=60 GLU 87 MG/DL 70-105 K 3.0 MEQ/L 3.5-5.1 NA 139 MEQ/L 134-145 OSMSC 275.9 MOSML 280-300 TBIL 0.5 MG/DL 0.1-1.0 TP 7.5 G/DL 6.0-8.3 Albumin/Globulin Ratio 1.1 0-8 Anion Gap 14.9 8-16 LACTIC ACID - 08/02/14 00:00 LA 2.8 MMOLL 0.4-2.0 UA - 08/02/14 00:00 PH 7.0 4.5-8.0 SG 1.008 UABILI NEGATIVE UABLD 1+ UACOLOR YEL UAGLU NEGATIVE UAKET NEGATIVE UALEUK TRACE UANIT NEGATIVE UAURO 0.2 0-0.2 CLARITY CL PROTEIN NEGATIVE UA WBC R510 UA RBC R05 SQUAMOUS EPITHELIAL CELLS 2+ BACTERIA OCC MG - 08/02/14 00:00 MG 1.7 MG/DL 1.7-2.8 CBC WITH DIFF - 08/03/14 00:00 BASO% 0.3 % 0-2 EOS% 0.7 % 0-7.0 HCT 37.8 % 36.9-47.0 HGB 12.7 G/DL 12.0-16.0 LYMPH% 16.2 % 20-40 MCH 32.2 PG 27-31 MCHC 33.6 G/DL 33-37 MCV 95.7 FL 81-99 MONO% 6.8 % 0-10.0 MPV 9.6 FL 7.3-10.4 NEUTRO% 76.0 % 40-70 PLT 228 10^3u 130-400 RBC 4.0 10^6u 4.2-5.4 RDW 13.1 % 11.5-15.5 WBC 9.8 10^3u 4.8-10.8 NEUTRO# 7.4 10^3u 1.5-7.5 LYMPH# 1.6 10^3u 0.9-4.0 MONO# 0.7 10^3u 0-0.8 EOS# 0.1 10^3u 0-0.6 BASO# 0.0 10^3u 0-0.1 CMP - 08/03/14 00:00 ALB 3.3 G/DL 3.5-5 ALP 83 IU/L 25-72 ALT 11 IU/L 12-65 AST 15 IU/L 10-42 BCR 8.6 10-20 BUN 8 MG/DL 7-18 CA 8.8 MG/DL 8.4-10.2 CL 103 MEQ/L 98-107 CO2 25.5 MEQ/L 22-28 CREA 0.93 MG/DL 0.6-1.0 EGFR 61 eGFR >=60 GLU 101 MG/DL 70-105 K 3.7 MEQ/L 3.5-5.1 NA 139 MEQ/L 134-145 OSMSC 276.0 MOSML 280-300 TBIL 0.6 MG/DL 0.1-1.0 TP 6.6 G/DL 6.0-8.3 Albumin/Globulin Ratio 1.0 0-8 Anion Gap 10.5 8-16 UA - 02/15/15 00:00 PH 7.0 4.5-8.0 SG 1.005 1.003-1.035 UABILI NEGATIVE UABLD 2+ UACOLOR YEL UAGLU NEGATIVE UAKET NEGATIVE UALEUK NEGATIVE UANIT NEGATIVE UAURO 0.2 0-0.2 CLARITY CL PROTEIN NEGATIVE UA WBC R05 UA RBC R05 SQUAMOUS EPITHELIAL CELLS FEW BACTERIA RARE CBC WITH DIFF - 02/15/15 00:00 BASO% 0.6 % 0-2 EOS% 0.8 % 0-7.0 HCT 38.7 % 36.9-47.0 HGB 13.1 G/DL 12.0-16.0 LYMPH% 33.6 % 20-40 MCH 31.3 PG 27-31 MCHC 33.9 G/DL 33-37 MCV 92.6 FL 81-99 MONO% 7.6 % 0-10.0 MPV 10.0 FL 7.3-10.4 NEUTRO% 57.0 % 40-70 PLT 215 10^3u 130-400 RBC 4.2 10^6u 4.2-5.4 RDW 12.0 % 11.5-15.5 WBC 7.1 10^3u 4.8-10.8 NEUTRO# 4.0 10^3u 1.5-7.5 LYMPH# 2.4 10^3u 0.9-4.0 MONO# 0.5 10^3u 0-0.8 EOS# 0.1 10^3u 0-0.6 BASO# 0.0 10^3u 0-0.1 LINE DRAW - 02/15/15 00:00 IMM GRANULOCYTE % 0.4 % IMM GRANULOCYTE # 0.0 10^3u 0-5 LIP - 02/15/15 00:00 LIP 120 U/L 73-393 CMP - 02/15/15 00:00 ALB 3.8 G/DL 3.5-5 ALP 87 IU/L 25-72 ALT 20 IU/L 12-65 AST 20 IU/L 10-42 BCR 8.3 10-20 BUN 10 MG/DL 7-18 CA 9.2 MG/DL 8.4-10.2 CL 103 MEQ/L 98-107 CO2 25.0 MEQ/L 22-28 CREA 1.20 MG/DL 0.6-1.0 EGFR 46 eGFR >=60 GLU 81 MG/DL 70-105 K 3.4 MEQ/L 3.5-5.1 NA 140 MEQ/L 134-145 OSMSC 277.5 MOSML 280-300 TBIL 0.7 MG/DL 0.1-1.0 TP 7.4 G/DL 6.0-8.3 Albumin/Globulin Ratio 1.1 0-8 Anion Gap 12.0 8-16 TROP - 02/15/15 00:00 TROP < 0.04 NG/ML 0.0-0.4 DRUG SCREEN IN HOUSE - 02/15/15 00:00 MBAR N Negative MBENZO N Negative MCOCN N Negative MMAMP N Negative MMTD N Negative MOPIAT N Negative MPCP N Negative MTCA N Negative MTHC N Negative AMPHETAMINE N Negative PRO-BNP - 02/15/15 00:00 PRO-BNP 87 PG/ML 0-900 TROP - 02/15/15 00:00 TROP < 0.04 NG/ML 0.0-0.4 TROP - 02/16/15 00:00 TROP < 0.04 NG/ML 0.0-0.4 UA - 04/19/15 00:00 PH 6.0 4.5-8.0 SG 1.015 1.003-1.035 UABILI NEGATIVE UABLD 3+ UACOLOR YEL UAGLU NEGATIVE UAKET NEGATIVE UALEUK 1+ UANIT NEGATIVE UAURO 0.2 0-0.2 CLARITY CLD PROTEIN NEGATIVE UA WBC R1020 UA RBC R1020 SQUAMOUS EPITHELIAL CELLS 1+ BACTERIA 2+ CBC WITH DIFF - 04/19/15 00:00 BASO% 0.3 % 0-2 EOS% 0.3 % 0-7.0 HCT 34.2 % 36.9-47.0 HGB 11.3 G/DL 12.0-16.0 LYMPH% 20.6 % 20-40 MCH 31.0 PG 27-31 MCHC 33.0 G/DL 33-37 MCV 93.7 FL 81-99 MONO% 6.8 % 0-10.0 MPV 9.8 FL 7.3-10.4 NEUTRO% 71.8 % 40-70 PLT 202 10^3u 130-400 RBC 3.7 10^6u 4.2-5.4 RDW 14.3 % 11.5-15.5 WBC 10.5 10^3u 4.8-10.8 NEUTRO# 7.5 10^3u 1.5-7.5 LYMPH# 2.2 10^3u 0.9-4.0 MONO# 0.7 10^3u 0-0.8 EOS# 0.0 10^3u 0-0.6 BASO# 0.0 10^3u 0-0.1 SEDR - 04/19/15 00:00 SEDR 65 0-30 IMM GRANULOCYTE % 0.2 % IMM GRANULOCYTE # 0.0 10^3u 0-5 CMP - 04/19/15 00:00 ALB 3.5 G/DL 3.5-5 ALP 101 IU/L 25-72 ALT 24 IU/L 12-65 AST 23 IU/L 10-42 BCR 6.8 10-20 BUN 6 MG/DL 7-18 CA 8.7 MG/DL 8.4-10.2 CL 101 MEQ/L 98-107 CO2 25.2 MEQ/L 22-28 CREA 0.88 MG/DL 0.6-1.0 EGFR 65 eGFR >=60 GLU 100 MG/DL 70-105 K 3.6 MEQ/L 3.5-5.1 NA 137 MEQ/L 134-145 OSMSC 271.5 MOSML 280-300 TBIL 0.8 MG/DL 0.1-1.0 TP 7.5 G/DL 6.0-8.3 Albumin/Globulin Ratio 0.9 0-8 Anion Gap 10.8 8-16 LACTIC ACID - 04/19/15 00:00 LA 1.1 MMOLL 0.4-2.0 Capillary blood glucose measurement by glucometer (mass/volume) - 03/08/16 18: 55 Capillary blood glucose measurement by glucometer (mass/volume) 88 mg/dL 70-110 Complete blood count (CBC) with automated white blood cell (WBC) differential - 03/08/16 18:59 Blood leukocytes automated count (number/volume) 9.5 10*3/uL 4.3-11.0 Blood erythrocytes automated count (number/volume) 4.32 10*6/uL 4.35-5.85 Venous blood hemoglobin measurement (mass/volume) 13.9 g/dL 11.5-16.0 Blood hematocrit (volume fraction) 39 % 35-52 Automated erythrocyte mean corpuscular volume 89 [foz_us] 80-99 Automated erythrocyte mean corpuscular hemoglobin (mass per erythrocyte) 32 pg 25-34 Automated erythrocyte mean corpuscular hemoglobin concentration measurement ( mass/volume) 36 g/dL 32-36 Automated erythrocyte distribution width ratio 12.9 % 10.0-14.5 Automated blood platelet count (count/volume) 209 10*3/uL 130-400 Automated blood platelet mean volume measurement 9.8 [foz_us] 7.4-10.4 Automated blood neutrophils/100 leukocytes 53 % 42-75 Automated blood lymphocytes/100 leukocytes 36 % 12-44 Blood monocytes/100 leukocytes 9 % 0-12 Automated blood eosinophils/100 leukocytes 2 % 0-10 Automated blood basophils/100 leukocytes 0 % 0-10 Blood neutrophils automated count (number/volume) 5.0 10*3 1.8-7.8 Blood lymphocytes automated count (number/volume) 3.5 10*3 1.0-4.0 Blood monocytes automated count (number/volume) 0.8 10*3 0.0-1.0 Automated eosinophil count 0.2 10*3/uL 0.0-0.3 Automated blood basophil count (count/volume) 0.0 10*3/uL 0.0-0.1 Comprehensive metabolic panel - 03/08/16 18:59 Serum or plasma sodium measurement (moles/volume) 139 mmol/L 135-145 Serum or plasma potassium measurement (moles/volume) 2.9 mmol/L 3.6-5.0 Serum or plasma chloride measurement (moles/volume) 101 mmol/L 98-107 Carbon dioxide 25 mmol/L 21-32 Serum or plasma anion gap determination (moles/volume) 13 mmol/L 5-14 Serum or plasma urea nitrogen measurement (mass/volume) 9 mg/dL 7-18 Serum or plasma creatinine measurement (mass/volume) 0.77 mg/dL 0.60-1.30 Serum or plasma urea nitrogen/creatinine mass ratio 12 NRG Serum or plasma creatinine measurement with calculation of estimated glomerular filtration rate > NRG Serum or plasma glucose measurement (mass/volume) 89 mg/dL 70-105 Serum or plasma calcium measurement (mass/volume) 8.6 mg/dL 8.5-10.1 Serum or plasma total bilirubin measurement (mass/volume) 0.9 mg/dL 0.1-1.0 Serum or plasma alkaline phosphatase measurement (enzymatic activity/volume) 82 U/L 40-136 Serum or plasma aspartate aminotransferase measurement (enzymatic activity/ volume) 12 U/L 5-34 Serum or plasma alanine aminotransferase measurement (enzymatic activity/volume ) 16 U/L 0-55 Serum or plasma protein measurement (mass/volume) 6.4 g/dL 6.4-8.2 Serum or plasma albumin measurement (mass/volume) 3.9 g/dL 3.2-4.5 PT panel in platelet poor plasma by coagulation assay - 03/08/16 18:59 Prothrombin time (PT) in platelet poor plasma by coagulation assay 13.6 s 12.2-14.7 INR in platelet poor plasma or blood by coagulation assay 1.1 0.8-1.4 Activated partial thromboplastin time (aPTT) in platelet poor plasma bycoagulation assay - 03/08/16 18:59 Activated partial thromboplastin time (aPTT) in platelet poor plasma bycoagulation assay 21 s 24-35 Fibrin D-dimer FEU measurement in platelet poor plasma (mass/volume) - 18:59 Fibrin D-dimer FEU measurement in platelet poor plasma (mass/volume) 0.87 ug/mL 0.00-0.49 Serum or plasma troponin i.cardiac measurement (mass/volume) - 03/08/16 18:59 Serum or plasma troponin i.cardiac measurement (mass/volume) < ng/ mL <0.30 Complete urinalysis with reflex to culture - 03/08/16 20:14 Urine color determination YELLOW NRG Urine clarity determination CLEAR NRG Urine pH measurement by test strip 6.5 5-9 Specific gravity of urine by test strip 1.010 1.016- 1.022 Urine protein assay by test strip, semi-quantitative NEGATIVE NEGATIVE Urine glucose detection by automated test strip NEGATIVE NEGATIVE Erythrocytes detection in urine sediment by light microscopy 2+ NEGATIVE Urine ketones detection by automated test strip NEGATIVE NEGATIVE Urine nitrite detection by test strip NEGATIVE NEGATIVE Urine total bilirubin detection by test strip NEGATIVE NEGATIVE Urine urobilinogen measurement by automated test strip (mass/volume) NORMAL NORMAL Urine leukocyte esterase detection by dipstick NEGATIVE NEGATIVE Automated urine sediment erythrocyte count by microscopy (number/high power field) [HPF] NRG Automated urine sediment leukocyte count by microscopy (number/high power field ) NONE NRG Bacteria detection in urine sediment by light microscopy NONE NRG Crystals detection in urine sediment by light microscopy NONE NRG Casts detection in urine sediment by light microscopy NONE NRG Mucus detection in urine sediment by light microscopy NEGATIVE NRG Complete urinalysis with reflex to culture NO NRG [id number] - 04/04/16 08:46 Serum or plasma urea nitrogen measurement (mass/volume) 11 mg/dL 7-18 Serum or plasma creatinine measurement (mass/volume) 0.78 mg/dL 0.60-1.30 Serum or plasma urea nitrogen/creatinine mass ratio 14 NRG Serum or plasma creatinine measurement with calculation of estimated glomerular filtration rate > NRG Complete blood count (CBC) with automated white blood cell (WBC) differential - 06/07/16 23:50 Blood leukocytes automated count (number/volume) 13.0 10*3/uL 4.3-11.0 Blood erythrocytes automated count (number/volume) 4.17 10*6/uL 4.35-5.85 Venous blood hemoglobin measurement (mass/volume) 13.4 g/dL 11.5-16.0 Blood hematocrit (volume fraction) 38 % 35-52 Automated erythrocyte mean corpuscular volume 92 [foz_us] 80-99 Automated erythrocyte mean corpuscular hemoglobin (mass per erythrocyte) 32 pg 25-34 Automated erythrocyte mean corpuscular hemoglobin concentration measurement ( mass/volume) 35 g/dL 32-36 Automated erythrocyte distribution width ratio 12.8 % 10.0-14.5 Automated blood platelet count (count/volume) 217 10*3/uL 130-400 Automated blood platelet mean volume measurement 9.7 [foz_us] 7.4-10.4 Automated blood neutrophils/100 leukocytes 64 % 42-75 Automated blood lymphocytes/100 leukocytes 28 % 12-44 Blood monocytes/100 leukocytes 7 % 0-12 Automated blood eosinophils/100 leukocytes 2 % 0-10 Automated blood basophils/100 leukocytes 0 % 0-10 Blood neutrophils automated count (number/volume) 8.3 10*3 1.8-7.8 Blood lymphocytes automated count (number/volume) 3.6 10*3 1.0-4.0 Blood monocytes automated count (number/volume) 0.8 10*3 0.0-1.0 Automated eosinophil count 0.2 10*3/uL 0.0-0.3 Automated blood basophil count (count/volume) 0.0 10*3/uL 0.0-0.1 Comprehensive metabolic panel - 06/07/16 23:50 Serum or plasma sodium measurement (moles/volume) 139 mmol/L 135-145 Serum or plasma potassium measurement (moles/volume) 3.0 mmol/L 3.6-5.0 Serum or plasma chloride measurement (moles/volume) 105 mmol/L 98-107 Carbon dioxide 22 mmol/L 21-32 Serum or plasma anion gap determination (moles/volume) 12 mmol/L 5-14 Serum or plasma urea nitrogen measurement (mass/volume) 10 mg/dL 7-18 Serum or plasma creatinine measurement (mass/volume) 0.89 mg/dL 0.60-1.30 Serum or plasma urea nitrogen/creatinine mass ratio 11 NRG Serum or plasma creatinine measurement with calculation of estimated glomerular filtration rate > NRG Serum or plasma glucose measurement (mass/volume) 106 mg/dL 70-105 Serum or plasma calcium measurement (mass/volume) 9.1 mg/dL 8.5-10.1 Serum or plasma total bilirubin measurement (mass/volume) 0.6 mg/dL 0.1-1.0 Serum or plasma alkaline phosphatase measurement (enzymatic activity/volume) 97 U/L 40-136 Serum or plasma aspartate aminotransferase measurement (enzymatic activity/ volume) 16 U/L 5-34 Serum or plasma alanine aminotransferase measurement (enzymatic activity/volume ) 15 U/L 0-55 Serum or plasma protein measurement (mass/volume) 6.5 g/dL 6.4-8.2 Serum or plasma albumin measurement (mass/volume) 4.3 g/dL 3.2-4.5 Magnesium - 06/07/16 23:50 Magnesium 2.2 mg/dL 1.8-2.4 Serum or plasma troponin i.cardiac measurement (mass/volume) - 06/07/16 23:50 Serum or plasma troponin i.cardiac measurement (mass/volume) < ng/ mL <0.30 Serum or plasma lithium measurement (moles/volume) - 06/07/16 23:50 BNP level 19.7 pg/mL <100.0 Blood lactic acid measurement (moles/volume) - 06/07/16 23:50 Blood lactic acid measurement (moles/volume) 2.6 mmol/L 0.5-2.0 Bacterial blood culture - 06/07/16 23:50 Bacterial blood culture NG NRG Theophylline level - 06/07/16 23:50 Theophylline level < % 10.0-20.0 Complete blood count (CBC) with automated white blood cell (WBC) differential - 06/08/16 02:26 Blood leukocytes automated count (number/volume) 14.6 10*3/uL 4.3-11.0 Blood erythrocytes automated count (number/volume) 3.73 10*6/uL 4.35-5.85 Venous blood hemoglobin measurement (mass/volume) 12.0 g/dL 11.5-16.0 Blood hematocrit (volume fraction) 34 % 35-52 Automated erythrocyte mean corpuscular volume 92 [foz_us] 80-99 Automated erythrocyte mean corpuscular hemoglobin (mass per erythrocyte) 32 pg 25-34 Automated erythrocyte mean corpuscular hemoglobin concentration measurement ( mass/volume) 35 g/dL 32-36 Automated erythrocyte distribution width ratio 12.8 % 10.0-14.5 Automated blood platelet count (count/volume) 171 10*3/uL 130-400 Automated blood platelet mean volume measurement 9.6 [foz_us] 7.4-10.4 Automated blood neutrophils/100 leukocytes 92 % 42-75 Automated blood lymphocytes/100 leukocytes 6 % 12-44 Blood monocytes/100 leukocytes 2 % 0-12 Automated blood eosinophils/100 leukocytes 0 % 0-10 Automated blood basophils/100 leukocytes 0 % 0-10 Blood neutrophils automated count (number/volume) 13.4 10*3 1.8-7.8 Blood lymphocytes automated count (number/volume) 0.9 10*3 1.0-4.0 Blood monocytes automated count (number/volume) 0.3 10*3 0.0-1.0 Automated eosinophil count 0.0 10*3/uL 0.0-0.3 Automated blood basophil count (count/volume) 0.0 10*3/uL 0.0-0.1 Serum or plasma lactate measurement (moles/volume) - 06/08/16 02:26 Serum or plasma lactate measurement (moles/volume) 4.9 mmol/L 0.5-2.0 Whole blood basic metabolic panel - 06/08/16 02:26 Serum or plasma sodium measurement (moles/volume) 137 mmol/L 135-145 Serum or plasma potassium measurement (moles/volume) 2.4 mmol/L 3.6-5.0 Serum or plasma chloride measurement (moles/volume) 105 mmol/L 98-107 Carbon dioxide 16 mmol/L 21-32 Serum or plasma anion gap determination (moles/volume) 16 mmol/L 5-14 Serum or plasma urea nitrogen measurement (mass/volume) 9 mg/dL 7-18 Serum or plasma creatinine measurement (mass/volume) 0.91 mg/dL 0.60-1.30 Serum or plasma urea nitrogen/creatinine mass ratio 10 NRG Serum or plasma creatinine measurement with calculation of estimated glomerular filtration rate > NRG Serum or plasma glucose measurement (mass/volume) 238 mg/dL 70-105 Serum or plasma calcium measurement (mass/volume) 8.3 mg/dL 8.5-10.1 Serum or plasma phosphate measurement (mass/volume) - 06/08/16 02:26 Serum or plasma phosphate measurement (mass/volume) 1.8 mg/dL 2.3-4.7 Magnesium - 06/08/16 02:26 Magnesium 1.8 mg/dL 1.8-2.4 Blood manual differential performed detection - 06/08/16 02:26 Blood monocytes/100 leukocytes 0 % NRG Manual blood segmented neutrophils/100 leukocytes 82 % NRG Blood band neutrophils/100 leukocytes 8 % NRG Manual blood lymphocytes/100 leukocytes 10 % NRG Manual eosinophils/100 leukocytes in nose 0 % NRG Manual blood basophils/100 leukocytes 0 % NRG Blood rouleaux detection by light microscopy SLIGHT NRG Blood lactic acid measurement (moles/volume) - 06/08/16 06:15 Blood lactic acid measurement (moles/volume) 7.3 mmol/L 0.5-2.0 Complete blood count (CBC) with automated white blood cell (WBC) differential - 06/08/16 08:25 Blood leukocytes automated count (number/volume) 8.9 10*3/uL 4.3-11.0 Blood erythrocytes automated count (number/volume) 3.35 10*6/uL 4.35-5.85 Venous blood hemoglobin measurement (mass/volume) 10.8 g/dL 11.5-16.0 Blood hematocrit (volume fraction) 32 % 35-52 Automated erythrocyte mean corpuscular volume 94 [foz_us] 80-99 Automated erythrocyte mean corpuscular hemoglobin (mass per erythrocyte) 32 pg 25-34 Automated erythrocyte mean corpuscular hemoglobin concentration measurement ( mass/volume) 34 g/dL 32-36 Automated erythrocyte distribution width ratio 13.0 % 10.0-14.5 Automated blood platelet count (count/volume) 166 10*3/uL 130-400 Automated blood platelet mean volume measurement 10.1 [foz_us] 7.4-10.4 Automated blood neutrophils/100 leukocytes 96 % 42-75 Automated blood lymphocytes/100 leukocytes 3 % 12-44 Blood monocytes/100 leukocytes 1 % 0-12 Automated blood eosinophils/100 leukocytes 0 % 0-10 Automated blood basophils/100 leukocytes 0 % 0-10 Blood neutrophils automated count (number/volume) 8.5 10*3 1.8-7.8 Blood lymphocytes automated count (number/volume) 0.3 10*3 1.0-4.0 Blood monocytes automated count (number/volume) 0.1 10*3 0.0-1.0 Automated eosinophil count 0.0 10*3/uL 0.0-0.3 Automated blood basophil count (count/volume) 0.0 10*3/uL 0.0-0.1 PT panel in platelet poor plasma by coagulation assay - 06/08/16 08:25 Prothrombin time (PT) in platelet poor plasma by coagulation assay 16.0 s 12.2-14.7 INR in platelet poor plasma or blood by coagulation assay 1.3 0.8-1.4 Activated partial thromboplastin time (aPTT) in platelet poor plasma bycoagulation assay - 06/08/16 08:25 Activated partial thromboplastin time (aPTT) in platelet poor plasma bycoagulation assay 25 s 24-35 Blood lactic acid measurement (moles/volume) - 06/08/16 08:25 Blood lactic acid measurement (moles/volume) 7.3 mmol/L 0.5-2.0 Comprehensive metabolic panel - 06/08/16 08:25 Serum or plasma sodium measurement (moles/volume) 140 mmol/L 135-145 Serum or plasma potassium measurement (moles/volume) 4.2 mmol/L 3.6-5.0 Serum or plasma chloride measurement (moles/volume) 115 mmol/L 98-107 Carbon dioxide 12 mmol/L 21-32 Serum or plasma anion gap determination (moles/volume) 13 mmol/L 5-14 Serum or plasma urea nitrogen measurement (mass/volume) 8 mg/dL 7-18 Serum or plasma creatinine measurement (mass/volume) 0.83 mg/dL 0.60-1.30 Serum or plasma urea nitrogen/creatinine mass ratio 10 NRG Serum or plasma creatinine measurement with calculation of estimated glomerular filtration rate > NRG Serum or plasma glucose measurement (mass/volume) 203 mg/dL 70-105 Serum or plasma calcium measurement (mass/volume) 7.8 mg/dL 8.5-10.1 Serum or plasma total bilirubin measurement (mass/volume) 0.3 mg/dL 0.1-1.0 Serum or plasma alkaline phosphatase measurement (enzymatic activity/volume) 74 U/L 40-136 Serum or plasma aspartate aminotransferase measurement (enzymatic activity/ volume) 9 U/L 5-34 Serum or plasma alanine aminotransferase measurement (enzymatic activity/volume ) 10 U/L 0-55 Serum or plasma protein measurement (mass/volume) 5.2 g/dL 6.4-8.2 Serum or plasma albumin measurement (mass/volume) 3.5 g/dL 3.2-4.5 Bacterial blood culture - 06/08/16 08:25 Bacterial blood culture NG NRG Bacterial blood culture - 06/08/16 08:30 Bacterial blood culture NG NRG Methicillin resistant Staphylococcus aureus (MRSA) screening culture - 08:45 Methicillin resistant Staphylococcus aureus (MRSA) screening culture NEG NRG Blood lactic acid measurement (moles/volume) - 06/08/16 12:15 Blood lactic acid measurement (moles/volume) 4.0 mmol/L 0.5-2.0 Complete urinalysis with reflex to culture - 06/08/16 12:45 Urine color determination YELLOW NRG Urine clarity determination CLEAR NRG Urine pH measurement by test strip 6.5 5-9 Specific gravity of urine by test strip 1.005 1.016- 1.022 Urine protein assay by test strip, semi-quantitative NEGATIVE NEGATIVE Urine glucose detection by automated test strip 2+ NEGATIVE Erythrocytes detection in urine sediment by light microscopy 2+ NEGATIVE Urine ketones detection by automated test strip NEGATIVE NEGATIVE Urine nitrite detection by test strip NEGATIVE NEGATIVE Urine total bilirubin detection by test strip NEGATIVE NEGATIVE Urine urobilinogen measurement by automated test strip (mass/volume) NORMAL NORMAL Urine leukocyte esterase detection by dipstick 1+ NEGATIVE Automated urine sediment erythrocyte count by microscopy (number/high power field) RARE NRG Automated urine sediment leukocyte count by microscopy (number/high power field ) RARE NRG Bacteria detection in urine sediment by light microscopy NEGATIVE NRG Squamous epithelial cells detection in urine sediment by light microscopy RARE NRG Crystals detection in urine sediment by light microscopy NONE NRG Casts detection in urine sediment by light microscopy NONE NRG Mucus detection in urine sediment by light microscopy NEGATIVE NRG Complete urinalysis with reflex to culture NO NRG Bacterial urine culture - 06/08/16 12:45 Bacterial urine culture NG NRG Capillary blood glucose measurement by glucometer (mass/volume) - 06/08/16 13: 09 Capillary blood glucose measurement by glucometer (mass/volume) 137 mg/dL 70-110 Blood lactic acid measurement (moles/volume) - 06/08/16 17:20 Blood lactic acid measurement (moles/volume) 1.7 mmol/L 0.5-2.0 Capillary blood glucose measurement by glucometer (mass/volume) - 06/08/16 18: 54 Capillary blood glucose measurement by glucometer (mass/volume) 128 mg/dL 70-110 Capillary blood glucose measurement by glucometer (mass/volume) - 06/09/16 00: 05 Capillary blood glucose measurement by glucometer (mass/volume) 140 mg/dL 70-110 Complete blood count (CBC) with automated white blood cell (WBC) differential - 06/09/16 04:42 Blood leukocytes automated count (number/volume) 20.9 10*3/uL 4.3-11.0 Blood erythrocytes automated count (number/volume) 3.43 10*6/uL 4.35-5.85 Venous blood hemoglobin measurement (mass/volume) 11.0 g/dL 11.5-16.0 Blood hematocrit (volume fraction) 32 % 35-52 Automated erythrocyte mean corpuscular volume 93 [foz_us] 80-99 Automated erythrocyte mean corpuscular hemoglobin (mass per erythrocyte) 32 pg 25-34 Automated erythrocyte mean corpuscular hemoglobin concentration measurement ( mass/volume) 34 g/dL 32-36 Automated erythrocyte distribution width ratio 13.3 % 10.0-14.5 Automated blood platelet count (count/volume) 180 10*3/uL 130-400 Automated blood platelet mean volume measurement 10.2 [foz_us] 7.4-10.4 Automated blood neutrophils/100 leukocytes 88 % 42-75 Automated blood lymphocytes/100 leukocytes 6 % 12-44 Blood monocytes/100 leukocytes 7 % 0-12 Automated blood eosinophils/100 leukocytes 0 % 0-10 Automated blood basophils/100 leukocytes 0 % 0-10 Blood neutrophils automated count (number/volume) 18.3 10*3 1.8-7.8 Blood lymphocytes automated count (number/volume) 1.2 10*3 1.0-4.0 Blood monocytes automated count (number/volume) 1.4 10*3 0.0-1.0 Automated eosinophil count 0.0 10*3/uL 0.0-0.3 Automated blood basophil count (count/volume) 0.0 10*3/uL 0.0-0.1 PT panel in platelet poor plasma by coagulation assay - 06/09/16 04:42 Prothrombin time (PT) in platelet poor plasma by coagulation assay 14.5 s 12.2-14.7 INR in platelet poor plasma or blood by coagulation assay 1.2 0.8-1.4 Activated partial thromboplastin time (aPTT) in platelet poor plasma bycoagulation assay - 06/09/16 04:42 Activated partial thromboplastin time (aPTT) in platelet poor plasma bycoagulation assay 26 s 24-35 Serum or plasma phosphate measurement (mass/volume) - 06/09/16 04:42 Serum or plasma phosphate measurement (mass/volume) 1.8 mg/dL 2.3-4.7 Magnesium - 06/09/16 04:42 Magnesium 1.9 mg/dL 1.8-2.4 Blood manual differential performed detection - 06/09/16 04:42 Blood monocytes/100 leukocytes 6 % NRG Manual blood segmented neutrophils/100 leukocytes 88 % NRG Blood band neutrophils/100 leukocytes 4 % NRG Manual blood lymphocytes/100 leukocytes 2 % NRG Manual eosinophils/100 leukocytes in nose 0 % NRG Manual blood basophils/100 leukocytes 0 % NRG Blood ovalocytes detection by light microscopy SLIGHT NRG Blood poikilocytosis detection by light microscopy SLIGHT NRG Blood rouleaux detection by light microscopy SLIGHT NRG Comprehensive metabolic panel - 06/09/16 04:42 Serum or plasma sodium measurement (moles/volume) 141 mmol/L 135-145 Serum or plasma potassium measurement (moles/volume) 3.8 mmol/L 3.6-5.0 Serum or plasma chloride measurement (moles/volume) 114 mmol/L 98-107 Carbon dioxide 17 mmol/L 21-32 Serum or plasma anion gap determination (moles/volume) 10 mmol/L 5-14 Serum or plasma urea nitrogen measurement (mass/volume) 10 mg/dL 7-18 Serum or plasma creatinine measurement (mass/volume) 0.75 mg/dL 0.60-1.30 Serum or plasma urea nitrogen/creatinine mass ratio 13 NRG Serum or plasma creatinine measurement with calculation of estimated glomerular filtration rate > NRG Serum or plasma glucose measurement (mass/volume) 117 mg/dL 70-105 Serum or plasma calcium measurement (mass/volume) 8.6 mg/dL 8.5-10.1 Serum or plasma total bilirubin measurement (mass/volume) 0.4 mg/dL 0.1-1.0 Serum or plasma alkaline phosphatase measurement (enzymatic activity/volume) 77 U/L 40-136 Serum or plasma aspartate aminotransferase measurement (enzymatic activity/ volume) 16 U/L 5-34 Serum or plasma alanine aminotransferase measurement (enzymatic activity/volume ) 18 U/L 0-55 Serum or plasma protein measurement (mass/volume) 5.6 g/dL 6.4-8.2 Serum or plasma albumin measurement (mass/volume) 3.6 g/dL 3.2-4.5 Capillary blood glucose measurement by glucometer (mass/volume) - 06/09/16 17: 16 Capillary blood glucose measurement by glucometer (mass/volume) 126 mg/dL 70-110 Complete blood count (CBC) with automated white blood cell (WBC) differential - 06/10/16 05:00 Blood leukocytes automated count (number/volume) 15.5 10*3/uL 4.3-11.0 Blood erythrocytes automated count (number/volume) 3.64 10*6/uL 4.35-5.85 Venous blood hemoglobin measurement (mass/volume) 11.7 g/dL 11.5-16.0 Blood hematocrit (volume fraction) 33 % 35-52 Automated erythrocyte mean corpuscular volume 92 [foz_us] 80-99 Automated erythrocyte mean corpuscular hemoglobin (mass per erythrocyte) 32 pg 25-34 Automated erythrocyte mean corpuscular hemoglobin concentration measurement ( mass/volume) 35 g/dL 32-36 Automated erythrocyte distribution width ratio 13.2 % 10.0-14.5 Automated blood platelet count (count/volume) 208 10*3/uL 130-400 Automated blood platelet mean volume measurement 10.0 [foz_us] 7.4-10.4 Automated blood neutrophils/100 leukocytes 70 % 42-75 Automated blood lymphocytes/100 leukocytes 24 % 12-44 Blood monocytes/100 leukocytes 6 % 0-12 Automated blood eosinophils/100 leukocytes 0 % 0-10 Automated blood basophils/100 leukocytes 0 % 0-10 Blood neutrophils automated count (number/volume) 10.9 10*3 1.8-7.8 Blood lymphocytes automated count (number/volume) 3.7 10*3 1.0-4.0 Blood monocytes automated count (number/volume) 0.9 10*3 0.0-1.0 Automated eosinophil count 0.0 10*3/uL 0.0-0.3 Automated blood basophil count (count/volume) 0.0 10*3/uL 0.0-0.1 Comprehensive metabolic panel - 06/10/16 05:00 Serum or plasma sodium measurement (moles/volume) 142 mmol/L 135-145 Serum or plasma potassium measurement (moles/volume) 3.0 mmol/L 3.6-5.0 Serum or plasma chloride measurement (moles/volume) 107 mmol/L 98-107 Carbon dioxide 22 mmol/L 21-32 Serum or plasma anion gap determination (moles/volume) 13 mmol/L 5-14 Serum or plasma urea nitrogen measurement (mass/volume) 10 mg/dL 7-18 Serum or plasma creatinine measurement (mass/volume) 0.88 mg/dL 0.60-1.30 Serum or plasma urea nitrogen/creatinine mass ratio 11 NRG Serum or plasma creatinine measurement with calculation of estimated glomerular filtration rate > NRG Serum or plasma glucose measurement (mass/volume) 92 mg/dL 70-105 Serum or plasma calcium measurement (mass/volume) 8.9 mg/dL 8.5-10.1 Serum or plasma total bilirubin measurement (mass/volume) 0.5 mg/dL 0.1-1.0 Serum or plasma alkaline phosphatase measurement (enzymatic activity/volume) 79 U/L 40-136 Serum or plasma aspartate aminotransferase measurement (enzymatic activity/ volume) 14 U/L 5-34 Serum or plasma alanine aminotransferase measurement (enzymatic activity/volume ) 16 U/L 0-55 Serum or plasma protein measurement (mass/volume) 5.9 g/dL 6.4-8.2 Serum or plasma albumin measurement (mass/volume) 3.9 g/dL 3.2-4.5 Complete blood count (CBC) with automated white blood cell (WBC) differential - 07/10/16 21:00 Blood leukocytes automated count (number/volume) 6.8 10*3/uL 4.3-11.0 Blood erythrocytes automated count (number/volume) 4.29 10*6/uL 4.35-5.85 Venous blood hemoglobin measurement (mass/volume) 13.4 g/dL 11.5-16.0 Blood hematocrit (volume fraction) 38 % 35-52 Automated erythrocyte mean corpuscular volume 90 [foz_us] 80-99 Automated erythrocyte mean corpuscular hemoglobin (mass per erythrocyte) 31 pg 25-34 Automated erythrocyte mean corpuscular hemoglobin concentration measurement ( mass/volume) 35 g/dL 32-36 Automated erythrocyte distribution width ratio 12.9 % 10.0-14.5 Automated blood platelet count (count/volume) 189 10*3/uL 130-400 Automated blood platelet mean volume measurement 10.6 [foz_us] 7.4-10.4 Automated blood neutrophils/100 leukocytes 39 % 42-75 Automated blood lymphocytes/100 leukocytes 50 % 12-44 Blood monocytes/100 leukocytes 10 % 0-12 Automated blood eosinophils/100 leukocytes 1 % 0-10 Automated blood basophils/100 leukocytes 0 % 0-10 Blood neutrophils automated count (number/volume) 2.6 10*3 1.8-7.8 Blood lymphocytes automated count (number/volume) 3.4 10*3 1.0-4.0 Blood monocytes automated count (number/volume) 0.7 10*3 0.0-1.0 Automated eosinophil count 0.1 10*3/uL 0.0-0.3 Automated blood basophil count (count/volume) 0.0 10*3/uL 0.0-0.1 PT panel in platelet poor plasma by coagulation assay - 07/10/16 21:00 Prothrombin time (PT) in platelet poor plasma by coagulation assay 14.0 s 12.2-14.7 INR in platelet poor plasma or blood by coagulation assay 1.1 0.8-1.4 Activated partial thromboplastin time (aPTT) in platelet poor plasma bycoagulation assay - 07/10/16 21:00 Activated partial thromboplastin time (aPTT) in platelet poor plasma bycoagulation assay 23 s 24-35 Blood lactic acid measurement (moles/volume) - 07/10/16 21:00 Blood lactic acid measurement (moles/volume) 1.7 mmol/L 0.5-2.0 Comprehensive metabolic panel - 07/10/16 21:00 Serum or plasma sodium measurement (moles/volume) 138 mmol/L 135-145 Serum or plasma potassium measurement (moles/volume) 2.7 mmol/L 3.6-5.0 Serum or plasma chloride measurement (moles/volume) 101 mmol/L 98-107 Carbon dioxide 21 mmol/L 21-32 Serum or plasma anion gap determination (moles/volume) 16 mmol/L 5-14 Serum or plasma urea nitrogen measurement (mass/volume) 13 mg/dL 7-18 Serum or plasma creatinine measurement (mass/volume) 0.80 mg/dL 0.60-1.30 Serum or plasma urea nitrogen/creatinine mass ratio 16 NRG Serum or plasma creatinine measurement with calculation of estimated glomerular filtration rate > NRG Serum or plasma glucose measurement (mass/volume) 84 mg/dL 70-105 Serum or plasma calcium measurement (mass/volume) 8.4 mg/dL 8.5-10.1 Serum or plasma total bilirubin measurement (mass/volume) 0.7 mg/dL 0.1-1.0 Serum or plasma alkaline phosphatase measurement (enzymatic activity/volume) 85 U/L 40-136 Serum or plasma aspartate aminotransferase measurement (enzymatic activity/ volume) 25 U/L 5-34 Serum or plasma alanine aminotransferase measurement (enzymatic activity/volume ) 21 U/L 0-55 Serum or plasma protein measurement (mass/volume) 6.4 g/dL 6.4-8.2 Serum or plasma albumin measurement (mass/volume) 4.1 g/dL 3.2-4.5 Magnesium - 07/10/16 21:00 Magnesium 2.4 mg/dL 1.8-2.4 Lipase - 07/10/16 21:00 Lipase 22 U/L 8-78 Serum or plasma C reactive protein measurement (mass/volume) - 07/10/16 21:00 Serum or plasma C reactive protein measurement (mass/volume) 0.34 mg /dL 0.00-0.50 Bacterial blood culture - 07/10/16 21:00 Bacterial blood culture NG NRG Bacterial blood culture - 07/10/16 21:45 Bacterial blood culture NG NRG Sputum Gram stain - 07/10/16 22:10 GRAM STAIN SPUTUM AND MIXED BACTERIAL MARCUS NRG Bacterial sputum culture - 07/10/16 22:10 Bacterial sputum culture NORMAL NRG Complete urinalysis with reflex to culture - 07/10/16 22:23 Urine color determination YELLOW NRG Urine clarity determination SLIGHTLY CLOUDY NRG Urine pH measurement by test strip 6 5-9 Specific gravity of urine by test strip 1.015 1.016- 1.022 Urine protein assay by test strip, semi-quantitative 1+ NEGATIVE Urine glucose detection by automated test strip NEGATIVE NEGATIVE Erythrocytes detection in urine sediment by light microscopy 3+ NEGATIVE Urine ketones detection by automated test strip 1+ NEGATIVE Urine nitrite detection by test strip NEGATIVE NEGATIVE Urine total bilirubin detection by test strip NEGATIVE NEGATIVE Urine urobilinogen measurement by automated test strip (mass/volume) 1 mg/dL NORMAL Urine leukocyte esterase detection by dipstick 2+ NEGATIVE Automated urine sediment erythrocyte count by microscopy (number/high power field) [HPF] NRG Automated urine sediment leukocyte count by microscopy (number/high power field ) [HPF] NRG Bacteria detection in urine sediment by light microscopy TRACE NRG Squamous epithelial cells detection in urine sediment by light microscopy 5-10 NRG Crystals detection in urine sediment by light microscopy NONE NRG Casts detection in urine sediment by light microscopy NONE NRG Mucus detection in urine sediment by light microscopy SMALL NRG Complete urinalysis with reflex to culture NO NRG Ova and parasites - 07/11/16 01:57 OTP NEGATIVE RESULT PARASITES NOT FOUND NRG Complete blood count (CBC) with automated white blood cell (WBC) differential - 07/11/16 06:00 Blood leukocytes automated count (number/volume) 4.4 10*3/uL 4.3-11.0 Blood erythrocytes automated count (number/volume) 3.70 10*6/uL 4.35-5.85 Venous blood hemoglobin measurement (mass/volume) 11.8 g/dL 11.5-16.0 Blood hematocrit (volume fraction) 34 % 35-52 Automated erythrocyte mean corpuscular volume 91 [foz_us] 80-99 Automated erythrocyte mean corpuscular hemoglobin (mass per erythrocyte) 32 pg 25-34 Automated erythrocyte mean corpuscular hemoglobin concentration measurement ( mass/volume) 35 g/dL 32-36 Automated erythrocyte distribution width ratio 12.9 % 10.0-14.5 Automated blood platelet count (count/volume) 157 10*3/uL 130-400 Automated blood platelet mean volume measurement 10.4 [foz_us] 7.4-10.4 Automated blood neutrophils/100 leukocytes 81 % 42-75 Automated blood lymphocytes/100 leukocytes 18 % 12-44 Blood monocytes/100 leukocytes 2 % 0-12 Automated blood eosinophils/100 leukocytes 0 % 0-10 Automated blood basophils/100 leukocytes 0 % 0-10 Blood neutrophils automated count (number/volume) 3.6 10*3 1.8-7.8 Blood lymphocytes automated count (number/volume) 0.8 10*3 1.0-4.0 Blood monocytes automated count (number/volume) 0.1 10*3 0.0-1.0 Automated eosinophil count 0.0 10*3/uL 0.0-0.3 Automated blood basophil count (count/volume) 0.0 10*3/uL 0.0-0.1 Whole blood basic metabolic panel - 07/11/16 06:00 Serum or plasma sodium measurement (moles/volume) 137 mmol/L 135-145 Serum or plasma potassium measurement (moles/volume) 3.6 mmol/L 3.6-5.0 Serum or plasma chloride measurement (moles/volume) 107 mmol/L 98-107 Carbon dioxide 22 mmol/L 21-32 Serum or plasma anion gap determination (moles/volume) 8 mmol/L 5-14 Serum or plasma urea nitrogen measurement (mass/volume) 8 mg/dL 7-18 Serum or plasma creatinine measurement (mass/volume) 0.74 mg/dL 0.60-1.30 Serum or plasma urea nitrogen/creatinine mass ratio 11 NRG Serum or plasma creatinine measurement with calculation of estimated glomerular filtration rate > NRG Serum or plasma glucose measurement (mass/volume) 150 mg/dL 70-105 Serum or plasma calcium measurement (mass/volume) 7.9 mg/dL 8.5-10.1 C DIFFICILE AG + TOXIN A/B. - 07/11/16 13:50 RESULTS NEGATIVE FOR ANTIGEN AND TOXIN A/B NRG Stool bacteria identification by culture - 07/11/16 13:50 Stool bacteria identification by culture N2 NRG Stool leukocytes detection by light microscopy - 07/11/16 13:51 FECAL WBC RESULTS NO WBC'S OBSERVED ON DIRECT SMEAR NRG FECAL NOTE FECAL LEUKOCYTES MAY BE INTERMITTENTLY PRESENT OR NRG FECAL NOTE UNEVENLY DISTRIBUTED IN STOOL SPECIMENS, AND WBC NRG FECAL NOTE MORPHOLOGY DEGRADES DURING TRANSPORT NRG FECAL NOTE NOTE: NRG Encounters ACCT No. Visit Date/Time Discharge Status Pt. Type Provider Facility Loc./Unit Complaint [id number] 06/09/2013 09:05:00 06/09/2013 23:59:59 CLS Outpatient MOISE SUAZO MD [id number] 06/09/2013 09:05:00 06/09/2013 23:59:59 CLS Outpatient MOISE SUAZO MD [id number] 05/01/2013 09:06:00 05/01/2013 23:59:59 CLS Outpatient MOISE SUAZO MD [id number] 05/01/2013 09:06:00 05/01/2013 23:59:59 CLS Outpatient MOISE SUAZO MD [id number] 10/20/2012 08:32:00 10/20/2012 23:59:59 CLS Outpatient GEOFFREY WHITING DDS [id number] 08/23/2012 09:34:00 08/23/2012 23:59:59 CLS Outpatient [id number] 05/15/2012 14:21:00 05/15/2012 23:59:59 [place] [id number] 05/15/2012 14:21:00 05/15/2012 23:59:59 CLS Outpatient VASHTI BRUNNER MD [id number] 11/07/2015 09:44:00 11/07/2015 14:05:00 DIS Outpatient CADENCE CRAWFORD [facility] OPS [id number] 02/18/2015 07:55:00 02/18/2015 13:00:00 DIS Inpatient CADENCE CRAWFORD [facility] OPS [id number] 02/15/2015 16:36:00 02/16/2015 21:05:00 DIS Outpatient HARINDER WELCH [facility] OBS [id number] 08/02/2014 19:23:00 08/03/2014 19:30:00 DIS Outpatient HARINDER WELCH [facility] OBS [id number] 08/02/2014 15:52:00 08/02/2014 15:52:00 DIS Outpatient VASHTI LÓPEZ [facility] EMR [id number] 08/02/2014 15:27:00 08/02/2014 15:27:00 DIS Outpatient HARINDER WELCH [facility] OBS [id number] 09/17/2013 09:46:00 09/17/2013 09:46:00 DIS Outpatient HARINDER WELCH [facility] RAD [id number] 04/19/2015 11:22:00 ACT Inpatient HARINDER WELCH [facility] 2F [id number] 06/13/2014 00:00:00 Document Registration [id number] 06/13/2014 00:00:00 Document Registration [id number] 06/13/2014 00:00:00 Document Registration [id number] 09/16/2017 06:27:04 ACT Document Registration [id number] 04/05/2015 12:28:17 04/05/2015 23:59:59 CLS Outpatient SravanDiane [id number] 07/26/2017 12:51:00 07/26/2017 23:59:59 CLS Preadmit CHAO CASTILLO, ADITYA [facility] RAD MULTINODULAR GOITER [id number] 09/12/2016 08:05:00 09/12/2016 23:59:59 CLS Outpatient RICARDO CASTILLO, KELL Perry [facility] CARD CHEST PAIN SYNDROME, CAROTID ARTERY STENOSIS [id number] 08/17/2016 14:47:00 08/17/2016 23:59:59 CLS Outpatient ADITYA GUIDRY MD [facility] RAD MULTINODULAR GOITER [id number] 07/11/2016 01:21:00 07/11/2016 16:35:00 DIS Inpatient BARRY HANLEY MD [facility] 4TH HYPOVOLEMIA,WEAKNESS [id number] 06/08/2016 01:39:00 06/10/2016 14:10:00 DIS Inpatient SUSSY MELISSA DO [facility] 4TH ACUTE EXACERBATION COPD [id number] 04/17/2016 09:16:00 04/17/2016 23:59:59 CLS Outpatient ADITYA GUIDRY MD [facility] RAD THYROID NODULE RT [id number] 04/04/2016 08:28:00 04/04/2016 23:59:59 CLS Outpatient ADITYA GUIDRY MD [facility] RAD GERD [id number] 03/08/2016 18:52:00 03/08/2016 22:10:00 DIS Emergency MATY MCCORMICK MD [facility] ER UNRESPONSIVE [id number] 11/13/2015 09:49:00 11/13/2015 13:09:00 DIS Emergency GUILLERMO TOUSSAINT DO [facility] ER VOMITING/DIFF BREATHING [id number] 11/01/2015 23:33:00 11/02/2015 01:36:00 DIS Emergency JANIE FRANCOIS MD [facility] ER NAUSEA/VOMITING [id number] 10/29/2015 19:31:00 10/29/2015 22:49:00 DIS Emergency GUILLERMO TOUSSAINT DO [facility] ER UNRESPONSIVE [id number] 10/18/2015 17:38:00 10/21/2015 12:00:00 DIS Inpatient BARRY HANLEY MD [facility] 4TH CVA,WEAKNESS,APHASIA [id number] 10/08/2015 21:52:00 10/09/2015 13:43:00 DIS Inpatient DAYAN CASTILLO, BARRY Oswald [address] ANAPHYLAXIS; ATHSMA EXCARBATION, NAUSEA AND VOMITI [id number] 06/22/2015 07:56:00 06/22/2015 23:59:59 CLS Outpatient KELL SILVA MD [facility] CARD CP SYNDROME,DYSPNEA,LEG SWELLING,PALPITATIONS [id number] 06/21/2015 12:20:00 06/21/2015 23:59:59 CLS Outpatient KELL SILVA MD [facility] CP SYNDROME,DYSPNEA,LEG SWELLING,PALPITATIONS [id number] 04/11/2015 07:53:00 04/11/2015 23:59:59 CLS Preadmit ROBB CARIAS MD [facility] MSSA BACTEREMIA,IV ANTIBIOTIC [id number] 04/05/2015 13:47:00 04/05/2015 16:55:00 DIS Emergency BENNIE MARQUEZ DO [facility] ER LEFT ARM PAIN FROM PIC LINE [id number] 04/04/2015 11:25:00 04/04/2015 23:59:59 CLS Outpatient ROBB CARIAS MD [facility] MSSA BACTEREMIA, IV ANTIBIOTIC [id number] 03/12/2015 16:36:00 03/12/2015 18:57:00 DIS Emergency LIN CASTILLO, MIRYAM Dotson [facility] ER FEVER/COUGH/LOSS JASON [id number] 02/20/2015 16:07:00 02/20/2015 19:14:00 DIS Emergency DALLAS AFRMER [employer] ADMINISTRATOR [facility] ER DEHYDRATED [id number] 05/03/2014 08:56:00 05/03/2014 23:59:59 CLS Outpatient KELL SILVA MD [facility] RAD CP,PALPITATION,DILATED AORTIC ROOT [id number] 04/07/2014 12:12:00 04/07/2014 23:59:59 CLS Outpatient KELL SILVA MD [facility] CARD CP,PALPITATIONS,SINUS TACHYCARDIA [id number] 12/22/2013 18:27:00 12/22/2013 20:02:00 DIS Emergency ANNY CASTILLO, MATY Wyatt [facility] ER CHEST PAIN [id number] 05/01/2013 10:35:00 05/01/2013 23:59:59 CLS Outpatient MOISE SUAZO MD [facility] ASTHMA,RSL,MIGRAINE [id number] 12/26/2012 02:20:00 12/26/2012 18:30:00 DIS Outpatient KLAUDIA CASTILLO FACC, JAYNE COFFMAN CCDS [facility] INTRACTABLE RUQ PX,CHOLELITHIASIS [id number] 01/01/2016 11:00:00 Document Registration [id number] 02/21/2015 02:29:00 Document Registration [id number] 02/21/2015 02:29:00 Document Registration [id number] 02/21/2015 02:28:00 Document Registration [id number] 02/21/2015 02:28:00 Document Registration [id number] 02/21/2015 02:28:00 Document Registration [id number] 02/21/2015 02:28:00 Document Registration [id number] 10/07/2012 14:37:00 Document Registration [id number] 06/30/2012 15:44:00 Document Registration [id number] 05/05/2012 18:57:00 Document Registration [id number] 03/27/2012 00:00:00 Document Registration [id number] 02/29/2012 08:06:00 Document Registration [id number] 01/28/2012 15:43:00 Document Registration [id number] 01/11/2012 17:15:00 Document Registration [id number] 11/27/2011 12:19:00 Document Registration [id number] 11/08/2011 09:07:00 Document Registration [id number] 10/29/2011 14:04:00 Document Registration [id number] 10/28/2011 11:00:00 Document Registration [id number] 10/08/2011 13:14:00 Document Registration [id number] 09/18/2011 13:01:00 Document Registration [id number] 04/22/2011 14:15:00 Document Registration [id number] 03/03/2011 20:03:00 Document Registration [id number] 09/02/2010 17:56:00 Document Registration [id number] 10/03/2017 13:19:00 10/03/2017 23:59:59 DIS Outpatient HARINDER WELCH [facility] RAD screening [id number] 08/22/2017 22:11:03 08/22/2017 23:59:59 DIS Outpatient MIRIAM RAMOS [facility] [id number] 08/22/2017 13:18:00 08/22/2017 23:59:59 CLS Emergency [facility] ED ed visit [id number] 08/22/2017 13:19:11 Document Registration [id number] 11/01/2017 20:04:06 ACT Unknown Harinder Welch DO [email or web address] 11/05/2017 10:45:13 ACT Document Registration
[2017-12-29 06:33] LABS: BUN/CREATININE RATIO 16; CALCIUM 8.2 MG/DL (8.5-10.1); CARBON DIOXIDE 16 MMOL/L (21-32); CHLORIDE 113 MMOL/L (98-107); CREATININE SERUM 0.87 MG/DL (0.60-1.30); GFR ESTIMATED > 60; GLUCOSE 190 MG/DL (70-105); POTASSIUM 2.6 MMOL/L (3.6-5.0); SODIUM 143 MMOL/L (135-145)
[2017-12-29] MEDS: RT-ALBUTEROL/IPRATROPIUM 3 ML (DUONEB) VIAL INH SCH ×4 (06:56→19:35)
--- NOTE | 2017-12-29 06:59 | Diagnostic Imaging Report ---
EXAMINATION: Chest radiograph, portable AP view. DATE: 12/29/2017 at 0046 hours. INDICATION: 62-year-old female, shortness of breath. COMPARISON: 07/10/2016. FINDINGS: Stable overall appearance of the cardiomediastinal silhouette. There is a left-sided port catheter with tip near the level of the cavoatrial junction. There is no identified pneumothorax. There is no large pleural effusion. There is no interval focal airspace consolidation. Right upper quadrant surgical clips most likely reflect prior cholecystectomy. IMPRESSION: 1. No identified acute cardiopulmonary abnormality. 2. Left-sided port catheter tip at the level of the cavoatrial junction. Dictated by: Dictated on workstation # [id number]
[2017-12-29] MEDS ORDERED: RT-ALBUTEROL SULF 2.5 MG/3 ML PRE-MIX VIAL INH SCH (08:00)
[2017-12-29] MEDS ORDERED: KCL 20 MEQ TAB (K-DUR) PO NR (10:18)
--- NOTE | 2017-12-29 10:39 | History & Physical-Hospitalist ---
History of Present Illness HPI/Chief Complaint Pt is a 62yoCF with a PMH of COPD who presented to the ER due to acute onset shortness of breathing. She states her symptoms started just prior to arrival. She was sitting and doing a puzzle and was suddenly short of breath. She took her "rescue" inhaler and got no improvement. She was going to attempt a breathing treatment with her daughter's nebulizer but was unable to find the cord for it. She ultimately decided to come to the ER for evaluation. On presentation she was found to have stridor and was worried she was having an allergic reaction (significant history of anaphylaxis) so was given racemic epi and IV epi. She was also treated with Solu-Medrol and breathing treatments which improved her symptoms. She required an hour long breathing treatment. She still states she is short of breath but that the breathing treatments are helping. She states she is compliant with her inhalers as prescribed but takes her Albuterol twice a day every day and her Flovent only when needed. Source: patient Date Seen 12/29/17 Time Seen by Provider: 10:15 Attending Physician Audelia Godoy MD PCP Harinder Hernandez DO Referring Physician Date of Admission Dec 29, 2017 at 01:00 Home Medications & Allergies Home Medications Reviewed patient Home Medication Reconciliation performed by pharmacy medication reconciliations geophysical data technician and/or nursing. Patients Allergies have been reviewed. Allergies Allergies Coded Allergies Penicillins (Unverified Allergy, Severe, Throat swelling, 12/29/17) vancomycin (Verified Allergy, Severe, ANAPHYLAXIS, 10/18/15) Sulfa (Sulfonamide Antibiotics) (Unverified Allergy, Unknown, 10/18/15) aspirin (Unverified Allergy, Unknown, 10/18/15) baclofen (Unverified Allergy, Unknown, 10/18/15) codeine (Unverified Allergy, Unknown, 10/18/15) diazepam (Unverified Allergy, Unknown, 10/18/15) diphenhydramine (Unverified Allergy, Unknown, 10/18/15) doxycycline (Unverified Allergy, Unknown, 10/18/15) hydrocodone (Unverified Allergy, Unknown, 10/18/15) hydrocortisone (Unverified Allergy, Unknown, 10/18/15) ibuprofen (Unverified Allergy, Unknown, 10/18/15) ketorolac (Unverified Allergy, Unknown, 10/18/15) latex (Unverified Allergy, Unknown, 10/18/15) meperidine HCl (Unverified Allergy, Unknown, 10/18/15) morphine (Unverified Allergy, Unknown, 10/18/15) moxifloxacin HCl (Unverified Allergy, Unknown, 10/18/15) pregabalin (Unverified Allergy, Unknown, 10/18/15) promethazine (Unverified Allergy, Unknown, 10/18/15) propoxyphene napsylate (Unverified Allergy, Unknown, 10/18/15) ropinirole (Unverified Allergy, Unknown, 05/03/14) tramadol (Unverified Allergy, Unknown, 10/18/15) Past Gcgeczd-Oqzujd-Ioryvm Hx Past Med/Social Hx: Reviewed Nursing Past Med/Soc Hx Patient Social History Alcohol Use: Denies Use Recreational Drug Use: No Smoking Status: Smoker Current Status UKN Type Used: Cigarettes Physical Abuse Screen: No Sexual Abuse: No Recent Foreign Travel: No Contact w/other who traveled: No Recent Hopitalizations: No Recent Infectious Disease Expo: No Immunizations Up To Date Tetanus Booster (TDap): Less than 5yrs Pediatric: Yes Date of Pneumonia Vaccine: Apr 14, 2015 Date of Influenza Vaccine: Apr 14, 2015 Seasonal Allergies Seasonal Allergies: Yes Past Medical History Surgeries: Appendectomy, Gallbladder, Hysterectomy, Nose Respiratory: COPD, Emphysema Currently Using CPAP: No Currently Using BIPAP: No Cardiac: Heart Attack, High Cholesterol, Irregular Heartbeat, Palpitations Neurological: Neuropathy, Stroke, TIA Reproductive: No Sexually Transmitted Disease: No HIV/AIDS: No Hysterectomy Gastrointestinal: Gastroesophageal Reflux, Ulcer, Gall Bladder Disease Musculoskeletal: Arthritis Loss of Vision: Denies Cancer: Skin, Ovarian Psychosocial: Anxiety History of Blood Disorders: No (Anemia) Adverse Reaction to Blood [place]: No Family History Reviewed Nursing Family Hx Completed stroke 19 MOTHER G8 BROTHER Diabetes mellitus G8 BROTHER FH: breast cancer 19 MOTHER FH: cancer G8 SISTER FH: emphysema 19 FATHER FH: ovarian cancer G8 SISTER FH: prostate cancer 19 FATHER Hypertension 19 MOTHER Myocardial infarction 19 MOTHER Parkinson's disease Prostate cancer 19 FATHER Review of Systems Constitutional: No chills, No fever EENTM: throat pain; No blurred vision, No double vision, No throat swelling Respiratory: see HPI, short of breath Cardiovascular: No chest pain, No edema; palpitations, syncope (history- chronic) Gastrointestinal: no symptoms reported Genitourinary: no symptoms reported Musculoskeletal: no symptoms reported Skin: no symptoms reported Psychiatric/Neurological: No Symptoms Reported All Other Systems Reviewed Negative Unless Noted: Yes (Negative excepted noted.) Physical Exam Physical Exam Vital Signs Vital Signs - First Documented 12/28/17 23:34 Temp 97.1 Pulse 86 Resp 20 B/P (MAP) 135/81 (99) Pulse Ox 98 O2 Delivery Room Air Capillary Refill : Less Than 3 Seconds General Appearance: No Apparent Distress, WD/WN HEENT: No Scleral Icterus (L), No Scleral Icterus (R) Neck: No JVD, No Thyromegaly Respiratory: Lungs Clear, No Accessory Muscle Use, No Respiratory Distress Cardiovascular: Regular Rate, Rhythm, No Murmur Gastrointestinal: Normal Bowel Sounds, Non Tender, Soft Extremity: No Calf Tenderness, No Pedal Edema Neurologic/Psychiatric: Alert, Oriented x3 Skin: Normal Color, Warm/Dry Results Results/Procedures Labs Laboratory Tests 12/28/17 23:50 12/29/17 06:06 Patient resulted labs reviewed. Imaging: Reviewed Imaging Report Assessment/Plan Admission Diagnosis COPD Exacerbation Admission Status: Inpatient Order (span 2 midnights) Reason for Inpatient Admission: Breathing treatments, IV steroids Diagnosis/Problems Diagnosis/Problems (1) Acute exacerbation of chronic obstructive pulmonary disease (COPD) Status: Acute Assessment & Plan: Symptoms improving but still subjectively SOB Given profound symptoms on arrival will be cautious with deescalation fo therapy Will continue current treatment for one more day and likely will be ready for DC tomorrow Discussed with RT who will do pt education on inhalers as her reported use is incorrect (2) Conversion disorder with abnormal movement Status: Acute Assessment & Plan: History of conversion disorder in records Unsure of true diagnosis Would benefit from psych evaluation for underlying psychiatric illness Concerning for [place] vs factious disorder vs delusional disorder (3) Hypokalemia Status: Acute Assessment & Plan: Replaced Trend Mag pending (4) CAD (coronary artery disease) Status: Chronic Assessment & Plan: Pt reports history of this but review of cardiology notes shes normal cath in 2010 and normal stress test in 2014 Qualifiers: Coronary Disease-Associated Artery/Lesion type: [place] artery [place] vs. transplanted heart: [place] heart Associated angina: without angina Qualified Codes: I25.10 - Atherosclerotic heart disease of [place] coronary artery without angina pectoris (5) Stroke-like symptom Status: Resolved Assessment & Plan: Reports history of stroke though family member in ER reported that it was not a stroke or TIA MRI from 2016 shows no evidence of infarct Will hold plavix at this time given no cardiac and neurologic indication identifiable No deficits at this time (6) Anaphylaxis Status: Resolved Assessment & Plan: Reports history of anaphylaxis and "hives inside her body" with at least 22 medications Will benefit from Allergy/Immunology referral for testing and desensitization as indicated Qualifiers: Encounter type: sequela Qualified Codes: T78.2XXS - Anaphylactic shock, unspecified, sequela (7) Counseling regarding end of life decision making Assessment & Plan: Discussed code status with patient who request ro be allow to naturally should her suffer cardiac or respiratory arrest Reports daughter feels differently Advised her to fill out Advance Directive and assign DPOA regarding her end of life wishes to protect her autonomy DNR order placed AD consult placed (8) Radiation exposure Assessment & Plan: Has received 16 CTs in this facility in the past ~5 years Will need to limit radiation exposure as able (Has been treated in [facility] with unknown radiation exposure) Clinical Quality Measures DVT/VTE Risk/Contraindication: Risk Factor Score Per Nursin RFS Level Per Nursing on Admit: 2=Moderate Copy Copies To 1: AUDELIA Mccray MD Dec 29, 2017 10:39
[2017-12-29] MEDS ORDERED: hydrOXYzine (ATARAX) 10 MG TAB PO PRN (10:45)
[2017-12-29] MEDS ORDERED: LORazepam INJ 2 MG/ML (ATIVAN) VIAL IVP PRN (10:45)
--- OUTSIDE RECORDS SUMMARY | 2017-12-29 12:04 | XMS REPORT | Continuity of Care Document ---
Author Author [facility] Address Unknown Phone Unavailable Allergies Active Description Code Type Severity Reaction Onset Reported/Identified Relationship to Patient Clinical Status Yes Aleve 1092 Drug Allergy Severe confused Yes alprazolam 1464 Drug Allergy N/ A N/A Confirmed or Verified Yes amitriptyline 4600 Drug Allergy N/A N/A Confirmed or Verified Yes Aspirin 1587 Drug Allergy N/A N/A Yes Avelox 04548 Drug Allergy N/A N/A Yes azithromycin 3635 [...] Drug Allergy N/ A N/A Yes Pregabalin 73547 Drug Allergy N /A N/A Yes Promethazine [...] Allergy N/A N/A Yes Aleve Drug N/A [id number] Yes aspirin Drug N/A N /A Yes Avelox Drug N/A N/ A Yes azithromycin Drug N/A [id number] Yes baclofen Drug N/A N/A Yes codeine Drug N/A N /A Yes Demerol HCl Drug N/A N/A Yes diazepam Drug N/A [id number] Yes diphenhydrAMINE Drug N/A N/A Yes doxycycline Drug N/A N/A Yes Heparin Lock Flush Drug N/A [id number] Yes HYDROcodone Drug N/A N/A Yes hydrocortisone Drug N/A N/A Yes ibuprofen Drug N/A N/A Yes Latex Drug N/A N/ A Yes morphine Drug N/A N/A Yes penicillins 3 Drug N/A N/A Yes pregabalin Drug N/A N/A Yes promethazine Drug N/A N/A Yes rOPINIRole Drug N/A N/A Yes sulfa drugs 16 Drug N/A N/A Yes traMADol Drug N/A N/A Yes vancomycin Drug N/A [id number]~[id number] Yes aspirin Drug Allergy 04/23/2011 Yes Avelox [...] tablet Drug Allergy 05/15/2012 Yes ondansetron HCl [id number] Drug Allergy Unknown N/A 05/03/2014 Yes ropinirole [id number] Drug Allergy Unknown N/A 05/03/2014 Yes vancomycin A983319018 Drug Allergy Severe ANAPHYLAXIS 10/18/2015 Yes acetaminophen [id number] Drug Allergy Unknown N/A 10/18/2015 Yes aspirin H660621520 Drug Allergy Unknown N/A 10/18/2015 Yes baclofen D597365232 Drug Allergy Unknown N/A 10/18/2015 Yes codeine C802947537 Drug Allergy Unknown N/A 10/18/2015 Yes diazepam R621036174 Drug Allergy Unknown N/A 10/18/2015 Yes diphenhydramine C673653671 Drug Allergy Unknown N/A 10/18/2015 Yes doxycycline D826957135 Drug Allergy Unknown N/A 10/18/2015 Yes hydrocodone S608565931 Drug Allergy Unknown N/A 10/18/2015 Yes hydrocortisone R341010072 Drug Allergy Unknown N/A 10/18/2015 Yes ibuprofen H372610895 Drug Allergy Unknown N/A 10/18/2015 Yes ketorolac O876816438 Drug Allergy Unknown N/A 10/18/2015 Yes latex N435674509 Drug Allergy Unknown N/A 10/18/2015 Yes meperidine HCl R012766726 Drug Allergy Unknown N/A 10/18/2015 Yes morphine Z079322918 Drug Allergy Unknown N/A 10/18/2015 Yes moxifloxacin HCl E663182938 Drug Allergy Unknown N/A 10/18/2015 Yes Penicillins I126182960 Drug Allergy Unknown N/A 10/18/2015 Yes pregabalin P949438044 Drug Allergy Unknown N/A 10/18/2015 Yes promethazine V999398080 Drug Allergy Unknown N/A 10/18/2015 Yes propoxyphene napsylate L343130331 Drug Allergy Unknown N/A 10/18/2015 Yes Sulfa (Sulfonamide Antibiotics) Z323301219 Drug Allergy Unknown N/A 2015 Yes tramadol K506546070 Drug Allergy Unknown N/A 10/18/2015 Medications There [...] Ot 786.09 RESPIRATORY ABNORM NEC 07/02/2011 VASHTI BRUNNER MD 493.90 ASTHMA UNSPECIFIED 07/02/2011 493.90 ASTHMA [...] JOHANNE GUSTAFSON, GEOFFREY B 786.2 Cough 07/10/2011 OMISE SUAZO MD 786.2 Cough 07/10/2011 MOISE SUAZO MD 786.2 Cough 07/10/2011 MOISE SUAZO MD 786.2 Cough 07/10/2011 MOISE SUAZO MD 786.2 Cough 07/10/2011 VASHTI BRUNNER MD 786.2 Cough 07/13/2011 VASHTI BRUNNER MD 461.9 Acute Sinusitis Unspecified 07/13/2011 461.9 Acute Sinusitis Unspecified 07/13/2011 JOHANNE GUSTAFSON, GEOFFREY B 461.9 Acute Sinusitis Unspecified 07/13/2011 MOISE SUAZO MD 461.9 Acute Sinusitis Unspecified 07/13/2011 MOISE SAUZO MD 461.9 Acute Sinusitis Unspecified 07/13/2011 MOISE [...] CORONARY ATHEROSCLEROSIS OF UNSPECIFIED TYPE OF VESSEL [place] OR GRAFT 09/27/2011 414.00 CORONARY ATHEROSCLEROSIS OF UNSPECIFIED TYPE OF VESSEL [place] OR GRAFT 09/27/2011 GEOFFREY WHITING DDS 414.00 CORONARY ATHEROSCLEROSIS OF UNSPECIFIED TYPE OF VESSEL [place] OR GRAFT 09/27/2011 MOISE SUAZO MD 414.00 CORONARY ATHEROSCLEROSIS OF UNSPECIFIED TYPE OF VESSEL [place] OR GRAFT 09/27/2011 MOISE SUAZO MD 414.00 CORONARY ATHEROSCLEROSIS OF UNSPECIFIED TYPE OF VESSEL [place] OR GRAFT 09/27/2011 MOISE SUAZO MD 414.00 CORONARY ATHEROSCLEROSIS OF UNSPECIFIED TYPE OF VESSEL [place] OR GRAFT 09/27/2011 MOISE SUAZO MD 414.00 CORONARY ATHEROSCLEROSIS OF UNSPECIFIED TYPE OF VESSEL [place] OR GRAFT 09/27/2011 VASHTI BRUNNER MD 414.00 CORONARY ATHEROSCLEROSIS OF UNSPECIFIED TYPE OF VESSEL [place] OR GRAFT 10/28/2011 Ot 786.52 PAINFUL RESPIRATION [...] DDS 780.79 OTHER MALAISE AND FATIGUE 01/15/2012 [facility] GEOFFREY GUSTAFSON 787.02 NAUSEA ALONE 01/15/2012 MOISE [...] MD 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 01/15/2012 MOIES SUAZO MD 780.79 OTHER MALAISE AND FATIGUE [...] DISORDER UNSPECIFIED 03/05/2012 VASHTI BRUNNER MD V72.31 STRESS ENGINEER EXAM, ROUTINE 03/05/2012 VASHTI BRUNNER MD V76.10 BREAST CANCER SCREENING 03/05/2012 627.9 MENOPAUSAL AND POSTMENOPAUSAL DISORDER UNSPECIFIED 03/05/2012 V72.31 STRESS ENGINEER EXAM, ROUTINE 03/05/2012 V76.10 BREAST CANCER SCREENING 03/05/2012 JOHANNE GUSTAFSON, GEOFFREY Hathaway 627.9 MENOPAUSAL AND POSTMENOPAUSAL DISORDER UNSPECIFIED 03/05/2012 JOHANNE SHAHS, GEOFFREY Hathaway V72.31 STRESS ENGINEER EXAM, ROUTINE 03/05/2012 JOHANNE SHAHS, GEOFFREY B V76.10 BREAST CANCER SCREENING 03/05/2012 MOISE SUAZO MD 627.9 MENOPAUSAL AND POSTMENOPAUSAL DISORDER UNSPECIFIED 03/05/2012 MOISE SUAZO MD V72.31 STRESS ENGINEER EXAM, ROUTINE 03/05/2012 MOISE SUAZO MD V76.10 BREAST CANCER SCREENING 03/05/2012 MOISE SUAZO MD 627.9 MENOPAUSAL AND POSTMENOPAUSAL DISORDER UNSPECIFIED 03/05/2012 MOISE SUAZO MD V72.31 STRESS ENGINEER EXAM, ROUTINE 03/05/2012 MOISE SUAZO MD V76.10 BREAST CANCER SCREENING 03/05/2012 MOISE SUAZO MD 627.9 MENOPAUSAL AND POSTMENOPAUSAL DISORDER UNSPECIFIED 03/05/2012 MOISE SUAZO MD V72.31 STRESS ENGINEER EXAM, ROUTINE 03/05/2012 MOISE SUAZO MD V76.10 BREAST CANCER SCREENING 03/05/2012 MOISE SUAZO MD 627.9 MENOPAUSAL AND POSTMENOPAUSAL DISORDER UNSPECIFIED 03/05/2012 MOISE SUAZO MD V72.31 STRESS ENGINEER EXAM, ROUTINE 03/05/2012 MOISE SUAZO MD V76.10 BREAST CANCER SCREENING 03/05/2012 VASHTI BRUNNER MD 627.9 MENOPAUSAL AND POSTMENOPAUSAL DISORDER UNSPECIFIED 03/05/2012 VASHTI BRUNNER MD V72.31 STRESS ENGINEER EXAM, ROUTINE 03/05/2012 VASHTI BRUNNER MD V76.10 [...] 079.99 VIRAL SYNDROME 08/23/2012 786.2 COUGH 08/23/2012 [facility] DDS, GEOFFREY B 079.99 VIRAL SYNDROME 08/23/2012 JOHANNE DDS, GEOFFREY B 786.2 COUGH 08/23/2012 MOISE SUAZO MD 079.99 [...] FACP CCDS Ot 530.81 ESOPHAGEAL REFLUX 12/26/2012 KLAUIDA CASTILLO FAC, ALI FACP CCDS Ot 574.00 [...] KELL SILVA MD Ot 785.1 06/17/2014 KELL SILVA MD Ot 786.09 06/17/2014 KELL SILVA MD Ot 786.50 02/20/2015 [employer]ENT MANAG[employer] Ot 288.60 LEUKOCYTOSIS, UNSPECIFIED 02/20/2015 [employer]NAG[employer] Ot 780.60 FEVER, UNSPECIFIED 02/21/2015 Ot 496 [...] CASTILLO, KELL Perry Ot 397.0 02/21/2015 RICARDO CASTILLO, KELL Perry Ot 424.0 02/21/2015 RICARDO CASTILLO, [...] Ot 459.81 04/04/2015 Ot V58.81 04/04/2015 GABRIELE CASITLLO, MOISE Escamilla Ot 333.94 04/04/2015 GABRIELE CASTILLO, [...] 04/04/2015 KELL SILVA MD Ot 427.89 04/04/2015 EKLL SILVA MD Ot 530.81 04/04/2015 RICARDO CASTILLO, [...] SILVA MD Ot 786.50 04/05/2015 [place] [facility] [place] Ot 041.11 04/05/2015 J[place] [facility] [place] Ot 790.7 04/05/2015 J[place] [facility] [place] Ot V58.62 04/05/2015 BENNIE MARQUEZ DO Yoselin Ot 996.74 OTH COMPL DUE TO OTH VASCULAR DEVICE,IMP 04/27/2015 JV [place] [facility] [place] Ot 041.11 04/27/2015 JV [place], [facility] [place] Ot 790.7 04/27/2015 JV [place], [facility] [place] Ot V58.62 07/14/2015 KELL SILVA MD [...] MD Ot R13.10 10/20/2015 DAYAN CASTILLO, BARRY Oswald Ot R47.01 10/20/2015 DAYAN CASTILLO, BARRY Oswald [...] MD Ot I25.10 ATHSCL HEART DISEASE OF [place] CORONARY 10/21/2015 BARRY HANLEY MD Ot I63.9 [...] UNSPECIFIED 03/08/2016 MATY MCCORMICK MD Ot Z79.02 HALF-WAY (CURRENT) USE OF 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 03/12/2016 MATY MCCORMICK MD Ot G45.9 TRANSIENT CEREBRAL ISCHEMIC ATTACK, UNSP 03/12/2016 MATY MCCORMICK MD Ot I69.998 OTHER SEQUELAE FOLLOWING UNSPECIFIED CER 03/12/2016 MATY MCCORMICK MD, Ot R41.82 ALTERED MENTAL STATUS, UNSPECIFIED 03/12/2016 MATY MCCORMICK MD Ot Z79.02 PURCHASING INTERNSHIP (CURRENT) USE OF 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 04/04/2016 Ot 496 [...] DO Ot I25.10 ATHSCL HEART DISEASE OF [place] CORONARY 06/10/2016 SUSSY MELISSA DO Ot I49.9 CARDIAC ARRHYTHMIA, UNSPECIFIED 06/10/2016 SUSSY MELISSA DO Ot J40 BRONCHITIS, NOT SPECIFIED ACUTE OR CH 06/10/2016 SUSSY MELISSA DO Ot J44.0 CHRONIC OBSTRUCTIVE PULMON DISEASE [...] OCCLUSION AND STENOSIS OF BILATERAL GOSS 10/12/2016 KELL SILVA MD Ot R00.2 PALPITATIONS 10/12/2016 KELL [...] Harinder Welch DO E89.40 Menopause, surgical 12/26/2017 Hairnder Welch DO Z68.22 Body Mass Index 22.0-22.9 Adult Procedures Code Description Performed By Performed On 37.22 02/08/2011 88.42 02/08/2011 88.53 02/08/2011 88.56 02/08/2011 96.04 02/08/2011 96.71 02/08/2011 50917 OXIMETRY 08/23/2012 39589 CMP 05/01/2013 15216 LIPID PANEL 05/01/2013 22049 A1C (IN-HOUSE) 05/01/2013 39833 TSH 05/01/2013 53444 CBC 05/01/2013 46725 UA W/ CULTURE IF INDICATED 06/09/2013 [id number] 10/18/2015 06458 INS CVP CENT SUB Q PORT >5 11/07/2015 32517 CHEST X-RAY 11/07/2015 41731 FLOURO GUIDANCE FOR CVP 11/07/2015 C1751 CATH, [...] urinalysis with reflex to culture NO NRG [id number] - 04/04/16 08:46 Serum or plasma urea [...] Status Pt. Type Provider Facility Loc./Unit Complaint [id number] 06/09/2013 09:05:00 06/09/2013 23:59:59 CLS Outpatient MOISE SUAZO MD [id number] 06/09/2013 09:05:00 06/09/2013 23:59:59 CLS Outpatient MOISE SUAZO MD [id number] 05/01/2013 09:06:00 05/01/2013 23:59:59 CLS Outpatient MOISE SUAZO MD [id number] 05/01/2013 09:06:00 05/01/2013 23:59:59 CLS Outpatient MOISE SUAZO MD [id number] 10/20/2012 08:32:00 10/20/2012 23:59:59 CLS Outpatient GEOFFREY WHITING DDS [id number] 08/23/2012 09:34:00 08/23/2012 23:59:59 CLS Outpatient [id number] 05/15/2012 14:21:00 05/15/2012 23:59:59 [place] [id number] 05/15/2012 14:21:00 05/15/2012 23:59:59 CLS Outpatient VASHTI BRUNNER MD [id number] 11/07/2015 09:44:00 11/07/2015 14:05:00 DIS Outpatient CADENCE CRAWFORD [facility] OPS [id number] 02/18/2015 07:55:00 02/18/2015 13:00:00 DIS Inpatient CADENCE CRAWFORD [facility] OPS [id number] 02/15/2015 16:36:00 02/16/2015 21:05:00 DIS Outpatient HARINDER WELCH [facility] OBS [id number] 08/02/2014 19:23:00 08/03/2014 19:30:00 DIS Outpatient HARINDER WELCH [facility] OBS [id number] 08/02/2014 15:52:00 08/02/2014 15:52:00 DIS Outpatient VASHTI LÓPEZ [facility] EMR [id number] 08/02/2014 15:27:00 08/02/2014 15:27:00 DIS Outpatient HARINDER WELCH [facility] OBS [id number] 09/17/2013 09:46:00 09/17/2013 09:46:00 DIS Outpatient HARINDER WELCH [facility] RAD [id number] 04/19/2015 11:22:00 ACT Inpatient HARINDER WLECH [facility] 2F [id number] 06/13/2014 00:00:00 Document Registration [id number] 06/13/2014 00:00:00 Document Registration [id number] 06/13/2014 00:00:00 Document Registration [email or web address] 09/16/2017 06:27:04 ACT Document Registration [id number] 04/05/2015 12:28:17 04/05/2015 23:59:59 CLS Outpatient SravanDiane [id number] 07/26/2017 12:51:00 07/26/2017 23:59:59 CLS Preadmit CHAO CASTILLO, ADITYA [facility] RAD MULTINODULAR GOITER [id number] 09/12/2016 08:05:00 09/12/2016 23:59:59 CLS Outpatient RICARDO CASTILLO, KELL Perry [facility] CARD CHEST PAIN SYNDROME, CAROTID ARTERY STENOSIS [id number] 08/17/2016 14:47:00 08/17/2016 23:59:59 CLS Outpatient ADITYA GUIDRY MD [facility] RAD MULTINODULAR GOITER [id number] 07/11/2016 01:21:00 07/11/2016 16:35:00 DIS Inpatient BARRY HANLEY MD [facility] 4TH HYPOVOLEMIA,WEAKNESS [id number] 06/08/2016 01:39:00 06/10/2016 14:10:00 DIS Inpatient SUSSY MELISSA DO [facility] 4TH ACUTE EXACERBATION COPD [id number] 04/17/2016 09:16:00 04/17/2016 23:59:59 CLS Outpatient ADITYA GUIDRY MD [facility] RAD THYROID NODULE RT [id number] 04/04/2016 08:28:00 04/04/2016 23:59:59 CLS Outpatient ADITYA GUIDRY MD [facility] RAD GERD [id number] 03/08/2016 18:52:00 03/08/2016 22:10:00 DIS Emergency MATY MCCORMICK MD [facility] ER UNRESPONSIVE [id number] 11/13/2015 09:49:00 11/13/2015 13:09:00 DIS Emergency GUILLERMO TOUSSAINT DO [facility] ER VOMITING/DIFF BREATHING [id number] 11/01/2015 23:33:00 11/02/2015 01:36:00 DIS Emergency JANIE FRANCOIS MD [facility] ER NAUSEA/VOMITING [id number] 10/29/2015 19:31:00 10/29/2015 22:49:00 DIS Emergency GUILLERMO TOUSSAINT DO [facility] ER UNRESPONSIVE [id number] 10/18/2015 17:38:00 10/21/2015 12:00:00 DIS Inpatient BARRY HANLEY MD [facility] 4TH CVA,WEAKNESS,APHASIA [id number] 10/08/2015 21:52:00 10/09/2015 13:43:00 DIS Inpatient DAYAN CASTILLO, BARRY Oswald [address] ANAPHYLAXIS; ATHSMA EXCARBATION, NAUSEA AND VOMITI [id number] 06/22/2015 07:56:00 06/22/2015 23:59:59 CLS Outpatient KELL SILVA MD [facility] CARD CP SYNDROME,DYSPNEA,LEG SWELLING,PALPITATIONS [id number] 06/21/2015 12:20:00 06/21/2015 23:59:59 CLS Outpatient KELL SILVA MD [facility] CP SYNDROME,DYSPNEA,LEG SWELLING,PALPITATIONS [id number] 04/11/2015 07:53:00 04/11/2015 23:59:59 CLS Preadmit ROBB CARIAS MD [facility] MSSA BACTEREMIA,IV ANTIBIOTIC [id number] 04/05/2015 13:47:00 04/05/2015 16:55:00 DIS Emergency BENNIE MARQUEZ DO [facility] ER LEFT ARM PAIN FROM PIC LINE [id number] 04/04/2015 11:25:00 04/04/2015 23:59:59 CLS Outpatient ROBB CARIAS MD [facility] MSSA BACTEREMIA, IV ANTIBIOTIC [id number] 03/12/2015 16:36:00 03/12/2015 18:57:00 DIS Emergency LIN CASTILLO, MIRYAM Dotson [facility] ER FEVER/COUGH/LOSS JASON [id number] 02/20/2015 16:07:00 02/20/2015 19:14:00 DIS Emergency [employer] TALENT MANAGEMENT [facility] ER DEHYDRATED [id number] 05/03/2014 08:56:00 05/03/2014 23:59:59 CLS Outpatient KELL SILVA MD [facility] RAD CP,PALPITATION,DILATED AORTIC ROOT [id number] 04/07/2014 12:12:00 04/07/2014 23:59:59 CLS Outpatient KELL SILVA MD [facility] CARD CP,PALPITATIONS,SINUS TACHYCARDIA [id number] 12/22/2013 18:27:00 12/22/2013 20:02:00 DIS Emergency ANNY CASTILLO, MATY Wyatt [facility] ER CHEST PAIN [id number] 05/01/2013 10:35:00 05/01/2013 23:59:59 CLS Outpatient MOISE SUAZO MD [facility] ASTHMA,RSL,MIGRAINE [id number] 12/26/2012 02:20:00 12/26/2012 18:30:00 DIS Outpatient KLAUDIA CASTILLO FACC, JAYNE COFFMAN CCDS [facility] INTRACTABLE RUQ PX,CHOLELITHIASIS [id number] 01/01/2016 11:00:00 Document Registration [id number] 02/21/2015 02:29:00 Document Registration [id number] 02/21/2015 02:29:00 Document Registration [id number] 02/21/2015 02:28:00 Document Registration [id number] 02/21/2015 02:28:00 Document Registration [id number] 02/21/2015 02:28:00 Document Registration [id number] 02/21/2015 02:28:00 Document Registration [id number] 10/07/2012 14:37:00 Document Registration [id number] 06/30/2012 15:44:00 Document Registration [id number] 05/05/2012 18:57:00 Document Registration [id number] 03/27/2012 00:00:00 Document Registration [id number] 02/29/2012 08:06:00 Document Registration [id number] 01/28/2012 15:43:00 Document Registration [id number] 01/11/2012 17:15:00 Document Registration [id number] 11/27/2011 12:19:00 Document Registration [id number] 11/08/2011 09:07:00 Document Registration [id number] 10/29/2011 14:04:00 Document Registration [id number] 10/28/2011 11:00:00 Document Registration [id number] 10/08/2011 13:14:00 Document Registration [id number] 09/18/2011 13:01:00 Document Registration [id number] 04/22/2011 14:15:00 Document Registration [id number] 03/03/2011 20:03:00 Document Registration [id number] 09/02/2010 17:56:00 Document Registration [id number] 10/03/2017 13:19:00 10/03/2017 23:59:59 DIS Outpatient HARINDER WELCH [facility] RAD screening [id number] 08/22/2017 22:11:03 08/22/2017 23:59:59 DIS Outpatient MIRIAM RAMOS [facility] [id number] 08/22/2017 13:18:00 08/22/2017 23:59:59 CLS Emergency [facility] ED ed visit [id number] 08/22/2017 13:19:11 Document Registration [id number] 11/01/2017 20:04:06 ACT Unknown Harinder Welch DO [email or web address] 11/05/2017 10:45:13 ACT Document Registration
[2017-12-29] MEDS: RT-FLUTICASONE 220 MCG (FLOVENT) PER PUFF INH SCH (19:36)
[2017-12-29] MEDS ORDERED: MONTELUKAST 10 MG (SINGULAIR) TAB PO SCH (21:00)
[2017-12-29] MEDS ORDERED: clonazePAM 1 MG (KlonoPIN) TAB PO SCH (21:00)
[2017-12-30] MEDS ORDERED: methylPREDNISolone 40 MG/ML (Solu-MEDROL) VIAL IV SCH
[2017-12-30 00:16] VITALS: BP 105/54
[2017-12-30 04:23] VITALS: BP 105/56
[2017-12-30] MEDS: RT-ALBUTEROL/IPRATROPIUM 3 ML (DUONEB) VIAL INH SCH ×2 (06:46→11:19)
[2017-12-30] MEDS: RT-FLUTICASONE 220 MCG (FLOVENT) PER PUFF INH SCH (06:46)
[2017-12-30 08:19] VITALS: BP 110/56
--- NOTE | 2017-12-30 11:40 | Progress Note-Hospitalist ---
Progress Note Progress Notes/Assess & Plan Date Seen 12/30/17 Time Seen by Provider: 11:35 Assessment & Plan The patient is a 62-year-old white female known to me. She was admitted with persistent wheezing. She is doing much better today. It is noted that she was admitted with a stated allergy list including 22 drugs all of which were said to have caused anaphylaxis. Physical exam: She appears older than stated age. It is noted that there are multiple ecchymoses on the dorsal surface of her arms. There is a port in the left subclavicular area. Lungs are clear to auscultation and no wheezing is noted. CV is regular. There is no pedal edema. Impression: Bronchospasm now improved Plan: Discharge. See discharge sequence for medications and routines BARRY HANLEY MD Dec 30, 2017 11:40
[2017-12-30] MEDS ORDERED: Medrol Dosepak (11:43)
--- NOTE | 2017-12-30 11:49 | Discharge Instructions ---
Discharge Instructions Patient Instructions Patient Instructions: Medications as on the discharge list. It was recorded that you take the Flovent inhaler on an as-needed basis. This is a preventative drug and should be taken twice a day. It has little or no value as a rescue drug. See your provider in 7-10 days. Activity & Diet Discharge Diet: No Restrictions Activity as Tolerated: Yes BARRY HANLEY MD Dec 30, 2017 11:49
== END 2017-12-30 12:27 | disposition home or self-care (01) | DRG 192 ==
LOC: EDUNIT# 23:30 → ER 23:32 → 4TH 12-29 01:00
PROVIDERS: ADMIT Family Medicine; ATTEND Family Medicine
DX: J43.9 Emphysema, unspecified (principal); J45.909 Unspecified asthma, uncomplicated; E87.6 Hypokalemia; F17.210 Nicotine dependence, cigarettes, uncomplicated; Z66 Do not resuscitate; E78.00 Pure hypercholesterolemia, unspecified; K21.9 Gastro-esophageal reflux disease without esophagitis; F44.4 Conversion disorder with motor symptom or deficit; I25.10 Atherosclerotic heart disease of native coronary artery without angina pectoris; I25.2 Old myocardial infarction; Z77.123 Contact with and (suspected) exposure to radon and other naturally occurring radiation; Z79.52 Long term (current) use of systemic steroids
CPT/HCPCS: 36415; 36600; 71045; 80048; 80053; 82805; 83735; 85025; 94640; 94644; 94664; 94760; 96361; 96374; 96375

== ENCOUNTER → 2018-10-30 | Outpatient (CLI) | payer MEDICARE, MEDICAID ==
[~2018-10-30] MED LIST changes: +CLON1TAB13 PO; -CLON1TAB3 PO; +FLUO10CA19; +FLUT16SP22; +Medrol Dosepak; +THP300TCR
== END ==
LOC: CARD 10:04
PROVIDERS: ATTEND Internal Medicine Cardiovascular Disease
DX: I65.23 Occlusion and stenosis of bilateral carotid arteries (principal); R06.09 Other forms of dyspnea; K21.9 Gastro-esophageal reflux disease without esophagitis; R00.2 Palpitations
CPT/HCPCS: 93306

== ENCOUNTER 2022-04-24 09:17 | Emergency (ER) | payer MEDICARE, MEDICAID ==
[~2022-04-24] VITALS: Ht 170 cm; Wt 63.5 kg
[~2022-04-24 09:17] MED LIST changes: +COLE625T30 PO; -COLE625T9 PO; -FLUO10CA19; +FLUO10CA33; -MECL-106 PO; +MECL-149 PO; +MONT-40 PO; -MONT10TA24 PO; -RABE20TA27 PO; +RABE20TA30 PO; +SCOP1PAT10 TD; -SCOP1PAT11 TD; -THEO200T20 PO
[2022-04-24] MEDS ORDERED: NS IV 1000 ML 1,000 ML IV SCH (10:00)
--- NOTE | 2022-04-24 10:04 | ED Cough/URI ---
General Chief Complaint: COVID19 Suspect/Confirmed Stated Complaint: VOMITING/DIARRHEA/BODYACHES/SOA/DIZZY Nursing Triage Note: PT PRESENTS TO ED VIA POV FROM HOME ACCOMAPNIED BY ADULT DAUGHTER WITH COMPLAINTS OF CHILLS, BODY ACHES, FEVER, N/V/D SINCE LAST NIGHT. REPORTS SHE RECENTLY GOT OVER BRONCHITIS Source: patient, family (daughter) Exam Limitations: no limitations History of Present Illness Date Seen by Provider: Apr 24, 2022 Time Seen by Provider: 09:50 Initial Comments Patient is a 66-year-old female who presents to the emergency room with a chief complaint of headache, cough, chills onset 2 days ago, nausea vomiting and diarrhea started yesterday. Patient states she recently had bronchitis for a "month". She has a history of emphysema. She is got Raynaud's phenomenon restless legs. She does not know of any known COVID-positive contacts. She denies black or bloody stools. She denies burning with urination or frequency. No swelling in her legs or cramping in her calves. She does have body aches all over. She is not a smoker. She is not oxygen dependent. She states that she has low potassium frequently. She has a laundry list of medication allergies. All other review of systems reviewed and negative except as stated. Timing/Duration: other (2-3 d) Severity/Quality: moderate, dry cough Associated Symptoms: cough, fever/chills, headache, lightheadedness, muscle aches Allergies and Home Medications Allergies Coded Allergies: Penicillins (Unverified Allergy, Severe, Throat swelling, 12/29/17) vancomycin (Verified Allergy, Severe, ANAPHYLAXIS, 10/18/15) Sulfa (Sulfonamide Antibiotics) (Unverified Allergy, Unknown, 10/18/15) aspirin (Unverified Allergy, Unknown, 10/18/15) baclofen (Unverified Allergy, Unknown, 10/18/15) codeine (Unverified Allergy, Unknown, 10/18/15) diazepam (Unverified Allergy, Unknown, 10/18/15) diphenhydramine (Unverified Allergy, Unknown, 10/18/15) doxycycline (Unverified Allergy, Unknown, 10/18/15) hydrocodone (Unverified Allergy, Unknown, 10/18/15) hydrocortisone (Unverified Allergy, Unknown, 10/18/15) ibuprofen (Unverified Allergy, Unknown, 10/18/15) ketorolac (Unverified Allergy, Unknown, 10/18/15) latex (Unverified Allergy, Unknown, 10/18/15) meperidine HCl (Unverified Allergy, Unknown, 10/18/15) morphine (Unverified Allergy, Unknown, 10/18/15) moxifloxacin HCl (Unverified Allergy, Unknown, 10/18/15) pregabalin (Unverified Allergy, Unknown, 10/18/15) promethazine (Unverified Allergy, Unknown, 10/18/15) propoxyphene napsylate (Unverified Allergy, Unknown, 10/18/15) ropinirole (Unverified Allergy, Unknown, 05/03/14) tramadol (Unverified Allergy, Unknown, 10/18/15) Patient Home Medication List Home Medication List Reviewed: Yes Albuterol Sulfate (Proair Hfa) 8.5 Gm Hfa.aer.ad, 2 PUFF IH Q4H PRN for SHORTNESS OF BREATH, (Reported) Entered as Reported by: JESSICA HARE on 06/08/16 0850 Atorvastatin Calcium (Atorvastatin Calcium) 10 Mg Tablet, 10 MG PO HS, (Report ed) Entered as Reported by: JESSICA HARE on 06/08/16 0850 Clonazepam (Clonazepam) 1 Mg Tablet, 1 MG PO HS, (Reported) Entered as Reported by: JESSICA HARE on 06/08/16 0850 Clopidogrel Bisulfate (Clopidogrel) 75 Mg Tablet, 75 MG PO DAILY, (Reported) Entered as Reported by: JESSICA HARE on 06/08/16 0850 Epinephrine (Epipen 2-Mike) 0.3 Mg/0.3 Ml Auto.injct, 0.3 MG IJ UD PRN for ALLERGIC REACTION , (Reported) Entered as Reported by: JESSICA HARE on 10/19/15 1442 Fluoxetine HCl (Fluoxetine HCl) 10 Mg Capsule, (Reported) Entered as Reported by: VIJI NAZARIO on 12/29/17 000 Fluticasone Propionate (Fluticasone Propionate) 16 Gm [place].susp, (Reported) Entered as Reported by: VIJI NAZARIO on 12/29/176 Metoclopramide HCl (Reglan) 5 Mg Tablet, 5 MG PO Q6H PRN for nausea Prescribed by: AYALA THOMPSON on 04/24/22 1222 Montelukast Sodium (Montelukast Sodium) 10 Mg Tablet, 10 MG PO HS, (Reported) Entered as Reported by: JESSICA HARE on 10/18/15 1657 Nitrofurantoin Monohyd/M-Cryst (Macrobid 100 mg Capsule) 100 Mg Capsule, 1 TAB PO BID Prescribed by: AYALA THOMPSON on 04/24/22 1222 Rabeprazole Sodium (Rabeprazole Sodium) 20 Mg Tablet.dr, 20 MG PO DAILY, (Reported) Entered as Reported by: JESSICA HARE on 10/18/15 165 Theophylline Anhydrous (Theophylline) 400 Mg Tablet.er, 200 MG PO BID, (Rep orted) Entered as Reported by: JESSICA HARE on 06/08/16 0850 Theophylline Anhydrous (Theophylline Anhydrous) 300 Mg Tab.er.12h, (Reported) Entered as Reported by: VIJI NAZARIO on 12/29/17 0007 [Medrol Dosepak] , 1 DAILY Prescribed by: BARRY HANLEY on 12/30/17 1143 Review of Systems Review of Systems Constitutional: see HPI EENTM: no symptoms reported Respiratory: cough Cardiovascular: no symptoms reported Gastrointestinal: diarrhea, nausea, vomiting Genitourinary: no symptoms reported Musculoskeletal: muscle cramps Skin: no symptoms reported Psychiatric/Neurological: Headache All Other Systems Reviewed Negative Unless Noted: Yes Past Kfvhijs-Xslpav-Vyrcor Hx Patient Social History Tobacco Use?: No Substance use?: No Alcohol Use?: No Pt feels they are or have been: No Immunizations Up To Date Tetanus Booster (TDap): Less than 5yrs PED Vaccines UTD: Yes Seasonal Allergies Seasonal Allergies: Yes Past Medical History Surgery/Hospitalization HX: EMPHESEMA, COPD, ASTHMA, ARTHRITIS, RAUNAUDS, RLS Surgeries: Yes (GROSHONG PLACEMENT and removed, "CHIP IN HEART", COLONOSCOPY, nasal polyp) Appendectomy, Gallbladder, Hysterectomy, Nose Respiratory: Yes Asthma, COPD, Emphysema Currently Using CPAP: No Currently Using BIPAP: No Cardiac: Yes (FAST HEART BEAT; Raynauds syndrome) Heart Attack, High Cholesterol, Irregular Heartbeat, Palpitations Neurological: Yes (RESTLESS LEG SYNDROME, ? ISCHEMIC STROKE VS TIA VS CONVERSION DISORDER? 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 History: Hysterectomy Sexually Transmitted Disease: No HIV/AIDS: No Genitourinary: No Gastrointestinal: Yes Gastroesophageal Reflux, Ulcer, Gall Bladder Disease Musculoskeletal: Yes Arthritis Endocrine: No Loss of Vision: Denies Cancer: Yes Skin, Ovarian Psychosocial: No Anxiety Integumentary: Yes (hx skin ca ) Blood Disorders: No (Anemia) Adverse Reaction/Blood Tranf: No Family Medical History Completed stroke 19 MOTHER G8 BROTHER Diabetes mellitus G8 BROTHER FH: breast cancer 19 MOTHER FH: cancer G8 SISTER FH: emphysema 19 FATHER FH: ovarian cancer G8 SISTER FH: prostate cancer 19 FATHER Hypertension 19 MOTHER Myocardial infarction 19 MOTHER Parkinson's disease Prostate cancer 19 FATHER Physical Exam Vital Signs - First Documented 04/24/22 09:43 Temp 38.7 Pulse 99 Resp 16 B/P (MAP) 114/59 (77) Pulse Ox 97 Capillary Refill : Less Than 3 Seconds Height: 5'4.00" Weight: 125lbs. 0.0oz. 56.731300xd; 21.00 BMI Method:Stated General Appearance: mild distress, thin Eyes: Bilateral Eye Normal Inspection, Bilateral Eye PERRL, Bilateral Eye EOMI HEENT: other (Dry oral mucosa) Neck: normal inspection Respiratory: lungs clear, normal breath sounds, no respiratory distress, no accessory muscle use, other (Wbacdm-g-Qqvk left upper chest) Cardiovascular: regular rate, rhythm Gastrointestinal: normal bowel sounds, soft, tenderness (Diffuse mild tenderness) Extremities: normal range of motion, non-tender, normal inspection, no pedal edema Neurologic/Psychiatric: alert, normal mood/affect, oriented x 3 Skin: normal color, warm/dry, other (Poor skin turgor) Progress/Results/Core Measures Suspected Sepsis SIRS Temperature: Pulse: 99 Respiratory Rate: 16 Laboratory Tests 04/24/22 09:48: White Blood Count 12.7H Blood Pressure 114 /59 Mean: 77 Laboratory Tests 04/24/22 09:48: Creatinine 1.15, Platelet Count 206 Results/Orders Lab Results Laboratory Tests Test 04/24/22 09:48 04/24/22 10:00 Range/Units White Blood Count 12.7 H 4.3-11.0 10^3/uL Red Blood Count 3.94 3.80-5.11 10^6/uL Hemoglobin 12.8 11.5-16.0 g/dL Hematocrit 37 35-52 % Mean Corpuscular Volume 93 80-99 fL Mean Corpuscular Hemoglobin 33 25-34 pg Mean Corpuscular Hemoglobin Concent 35 32-36 g/dL Red Cell Distribution Width 13.1 10.0-14.5 % Platelet Count 206 130-400 10^3/uL Mean Platelet Volume 9.8 9.0-12.2 fL Immature Granulocyte % (Auto) 1 % Neutrophils (%) (Auto) 89 H 42-75 % Lymphocytes (%) (Auto) 3 L 12-44 % Monocytes (%) (Auto) 7 0-12 % Eosinophils (%) (Auto) 0 0-10 % Basophils (%) (Auto) 0 0-10 % Neutrophils # (Auto) 11.3 H 1.8-7.8 10^3/uL Lymphocytes # (Auto) 0.3 L 1.0-4.0 10^3/uL Monocytes # (Auto) 0.9 0.0-1.0 10^3/uL Eosinophils # (Auto) 0.0 0.0-0.3 10^3/uL Basophils # (Auto) 0.0 0.0-0.1 10^3/uL Immature Granulocyte # (Auto) 0.1 0.0-0.1 10^3/uL Neutrophils % (Manual) 92 % Lymphocytes % (Manual) 1 % Monocytes % (Manual) 7 % Eosinophils % (Manual) 0 % Basophils % (Manual) 0 % Band Neutrophils 0 % Blood Morphology Comment NORMAL Sodium Level 137 135-145 MMOL/L Potassium Level 3.1 L 3.6-5.0 MMOL/L Chloride Level 104 98-107 MMOL/L Carbon Dioxide Level 22 21-32 MMOL/L Anion Gap 11 5-14 MMOL/L Blood Urea Nitrogen 16 7-18 MG/DL Creatinine 1.15 0.60-1.30 MG/DL Estimat Glomerular Filtration Rate 52 BUN/Creatinine Ratio 14 Glucose Level 115 H 70-105 MG/DL Calcium Level 9.0 8.5-10.1 MG/DL Influenza Type A (RT-PCR) Not Detected Not Detecte Influenza Type B (RT-PCR) Not Detected Not Detecte SARS-CoV-2 RNA (RT-PCR) Detected H Not Detecte Urine Color YELLOW Urine Clarity CLEAR Urine pH 5.5 5-9 Urine Specific [place] 1.025 H 1.016-1.022 Urine Protein NEGATIVE NEGATIVE Urine Glucose (UA) NEGATIVE NEGATIVE Urine Ketones NEGATIVE NEGATIVE Urine Nitrite NEGATIVE NEGATIVE Urine Bilirubin NEGATIVE NEGATIVE Urine Urobilinogen 1.0 < = 1.0 MG/DL Urine Leukocyte Esterase 1+ H NEGATIVE Urine RBC (Auto) 2+ H NEGATIVE Urine RBC 2-5 H /HPF Urine WBC 5-10 H /HPF Urine Squamous Epithelial Cells RARE /HPF Urine Crystals NONE /LPF Urine Bacteria NEGATIVE /HPF Urine Casts NONE /LPF Urine Mucus NEGATIVE /LPF Urine Culture Indicated YES My Orders Orders - AYALA THOMPSON MD Covid 19 Inhouse Test (04/24/22 09:52) Influenza A And B By Pcr (04/24/22 09:52) Isolation Central Supply Req (04/24/22 09:52) Ed Iv/Invasive Line Start (04/24/22 10:00) Cbc With Automated Diff (04/24/22 10:00) Ua Culture If Indicated (04/24/22 10:00) Basic Metabolic Panel (04/24/22 10:00) Ns Iv 1000 Ml (Sodium Chloride 0.9%) (04/24/22 10:00) Manual Differential (04/24/22 09:48) Urine Culture (04/24/22 10:00) Chest 1 View, Ap/Pa Only (04/24/22 11:05) Bebtelovimab (Bebtelovimab) (04/24/22 11:15) Metoclopramide Injection (Reglan Injecti (04/24/22 11:15) Acetaminophen Tablet (Tylenol Tablet) (04/24/22 11:15) Ns Iv 500 Ml (Sodium Chloride 0.9%) (04/24/22 11:05) Nitrofurantoin Capsule,Macro (Macrobid C (04/24/22 12:00) Medications Given in ED Current Medications Medications Dose Ordered Sig/Devon Route Start Time Stop Time Status Last Admin Dose Admin Acetaminophen 1,000 mg ONCE ONCE PO 04/24/22 11:15 04/24/22 11:16 DC 04/24/22 11:26 1,000 MG Bebtelovimab 175 mg ONCE ONCE IV 04/24/22 11:15 04/24/22 11:16 DC 04/24/22 11:42 175 MG Metoclopramide HCl 5 mg ONCE ONCE IVP 04/24/22 11:15 04/24/22 11:16 DC 04/24/22 11:26 5 MG Nitrofurantoin Macrocrystals 100 mg ONCE ONCE PO 04/24/22 12:00 04/24/22 12:01 DC 04/24/22 12:16 100 MG Vital Signs/I&O 04/24/22 09:43 Temp 38.7 Pulse 99 Resp 16 B/P (MAP) 114/59 (77) Pulse Ox 97 Capillary Refill : Less Than 3 Seconds Blood Pressure Mean: 77 Progress Note : Time: 11:06 Progress Note Patient is starting to have chills. She is continuing to complain about a headache. I asked her if she would be interested in trying some Reglan for her headache as it is not reflected on her allergy list. Her daughter states she has never had it but they would be willing to try it for her nausea. I did not order chest x-ray earlier but because of her COVID-positive status and continuing cough we will get that accomplished. I discussed with her the monoclonal antibody infusion, advised her of EUA status still. She and her daughter are interested in this infusion. She would qualify as she is only 2 days in to her illness. Patient vital signs are stable. She is still not hypoxic. Diagnostic Imaging Diagonstic Imaging: Xray Plain Films/CT/US/NM/MRI: chest Comments [facility] [place], [place] NAME: BROOKS HARRELL [facility] REC#: [id number] PT STATUS: REG ER : 1955 PHYSICIAN: AYALA THOMPSON MD ADMIT DATE: 04/24/22/ER Draft Date of Exam:04/24/22 CHEST 1 VIEW, AP/PA ONLY INDICATION: Cough, COVID positive. TECHNIQUE: Single view chest 11:41 AM. CORRELATION STUDY: 12/29/2017 FINDINGS: Left subclavian Vbziwy-y-Nvcp catheter tip at the right atrium, unchanged. Previously noted loop recorder device not visualized. Heart size and mediastinum are stable. Vascular perhaps slightly increased. No consolidating infiltrate. IMPRESSION: 1. Vasculature may be slightly increased from prior but without evidence of overt failure. No definitive consolidating infiltrate. Dictated on workstation # [id number] Dict: 04/24/22 1153 Trans: 04/24/22 1206 [facility] [id number] Interpreted by: RICARDO REYNOSO DO Electronically signed by: Departure Impression Primary Impression: COVID-19 Additional Impression: UTI (urinary tract infection) Qualified Codes: N30.00 - Acute cystitis without hematuria Disposition: HOME, SELF-CARE Condition: Stable Departure-Patient Inst. Decision time for Depature: 12:17 Referrals: SAIGE WELCH DO (PCP/Family) Primary Care Physician Patient Instructions: COVID-19 ED, Urinary Tract Infection, Adult (DC) Add. Discharge Instructions: Drink plenty of fluids to stay well hydrated. Small frequent meals for good nutrition. Extra Strength Tylenol 2 tablets every 6 hours as needed for pain. Reglan 5 mg every 6 hours as needed for nausea. Follow up with your primary care doctor in the next week. You will need to Quarantine for the next 3 days at home, and then 5 days afterward if you are out in public. Scripts Nitrofurantoin Monohyd/M-Cryst (Macrobid 100 mg Capsule) 100 Mg Capsule 1 TAB PO BID for 5 Days, #9 CAP Prov: AYALA THOMPSON MD 04/24/22 Metoclopramide HCl (Reglan) 5 Mg Tablet 5 MG PO Q6H PRN for nausea, #12 TAB Prov: AYALA THOMPSON MD 04/24/22 AYALA THOMPSON MD Apr 24, 2022 10:04
[2022-04-24 10:11] LABS: BASOPHILS % (AUTO) 0 % (0-10); EOSINOPHILS % (AUTO) 0 % (0-10); HEMATOCRIT 37 % (35-52); HEMOGLOBIN 12.8 g/dL (11.5-16.0); LYMPHOCYTES # (AUTO) 0.3 10^3/uL (1.0-4.0); LYMPHOCYTES % (AUTO) 3 % (12-44); MEAN CORPUSCULAR HEMOGLOBIN 33 pg (25-34); MEAN CORPUSCULAR HGB CONC 35 g/dL (32-36); MEAN CORPUSCULAR VOLUME 93 fL (80-99); MEAN PLATELET VOLUME 9.8 fL (9.0-12.2); MONOCYTES # (AUTO) 0.9 10^3/uL (0.0-1.0); MONOCYTES % (AUTO) 7 % (0-12); NEUTROPHILS # (AUTO) 11.3 10^3/uL (1.8-7.8); NEUTROPHILS % (AUTO) 89 % (42-75); PLATELET COUNT 206 10^3/uL (130-400); WHITE BLOOD COUNT 12.7 10^3/uL (4.3-11.0)
[2022-04-24 10:12] LABS: BILIRUBIN,URINE NEGATIVE (NEGATIVE); CLARITY,URINE CLEAR; COLOR,URINE YELLOW; GLUCOSE, URINE (UA) NEGATIVE (NEGATIVE); KETONES,URINE NEGATIVE (NEGATIVE); LEUKOCYTE ESTERASE ,URINE 1+ (NEGATIVE); NITRITE,URINE NEGATIVE (NEGATIVE); PH,URINE 5.5 (5-9); PROTEIN,URINE NEGATIVE (NEGATIVE)
[2022-04-24 10:27] LABS: POTASSIUM 3.1 MMOL/L (3.6-5.0)
[2022-04-24 10:32] LABS: CREATININE SERUM 1.15 MG/DL (0.60-1.30)
[2022-04-24 10:44] LABS: BACTERIA,URINE NEGATIVE /HPF; SQUAMOUS EPITHELIAL CELL,UR RARE /HPF
[2022-04-24 10:45] LABS: BAND NEUTROPHILS 0 %; BASOPHILS % (MANUAL) 0 %; EOSINOPHILS % (MANUAL) 0 %; LYMPHOCYTES % (MANUAL) 1 %; MONOCYTES % (MANUAL) 7 %; NEUTROPHILS % (MANUAL) 92 %; RBC MORPH NORMAL
[2022-04-24] MEDS ORDERED: NS IV 500 ML 500 ML IV STA (11:05)
[2022-04-24] MEDS ORDERED: METOCLOPRAMIDE INJ 10 MG/2 ML (REGLAN) IVP ONE (11:15)
[2022-04-24] MEDS ORDERED: BEBTELOVIMAB 175 MG/2 ML VIAL IV ONE (11:15)
[2022-04-24] MEDS ORDERED: ACETAMINOPHEN 500 MG TAB (TYLENOL) PO ONE (11:15)
[2022-04-24] MEDS ORDERED: NITROFURANTOIN 100 MG (MACROBID) CAPSULE PO ONE (12:00)
--- NOTE | 2022-04-24 12:07 | Diagnostic Imaging Report ---
INDICATION: Cough, COVID positive. TECHNIQUE: Single view chest 11:41 AM. CORRELATION STUDY: 12/29/2017 FINDINGS: Left subclavian Kwwrdh-f-Vmyw catheter tip at the right atrium, unchanged. Previously noted loop recorder device not visualized. Heart size and mediastinum are stable. Vascular perhaps slightly increased. No consolidating infiltrate. IMPRESSION: 1. Vasculature may be slightly increased from prior but without evidence of overt failure. No definitive consolidating infiltrate. Dictated by: Dictated on workstation # [id number]
[2022-04-24] MEDS ORDERED: NITR-65 PO (12:22)
[2022-04-24] MEDS ORDERED: METO5TAB75 PO (12:22)
[2022-04-24 13:10] VITALS: BP 80/47
== END 2022-04-24 13:10 | disposition home or self-care (01) ==
LOC: EDUNIT# 09:17 → ER 09:19
DX: U07.1 COVID-19 (principal); N39.0 Urinary tract infection, site not specified; R51.9 Headache, unspecified; R05.1 Acute cough; Z87.09 Personal history of other diseases of the respiratory system; Z91.040 Latex allergy status; Z88.0 Allergy status to penicillin; Z88.1 Allergy status to other antibiotic agents; Z88.2 Allergy status to sulfonamides; Z28.310 Unvaccinated for COVID-19
CPT/HCPCS: 36415; 71045; 80048; 81000; 85007; 85027; 87088; 87636

== ENCOUNTER → 2023-05-14 | Outpatient (RCR) | payer MEDICARE, MEDICAID ==
[~2023-05-14] MED LIST changes: +ALBU8.5H6 IH; -MECL-149 PO; +MECL-291 PO; +METO5TAB75 PO; -RT-ALBUINH IH
== END | disposition home or self-care (01) ==
LOC: EDBD → ONC 05-06 08:31
PROVIDERS: ATTEND Radiology Radiation Oncology
DX: Z51.0 Encounter for antineoplastic radiation therapy (principal); C50.411 Malignant neoplasm of upper-outer quadrant of right female breast; Z17.0 Estrogen receptor positive status [ER+]; J44.9 Chronic obstructive pulmonary disease, unspecified; I10 Essential (primary) hypertension; E78.00 Pure hypercholesterolemia, unspecified; Z87.891 Personal history of nicotine dependence; Z79.01 Long term (current) use of anticoagulants; Z79.02 Long term (current) use of antithrombotics/antiplatelets; Z79.899 Other long term (current) drug therapy
CPT/HCPCS: 77280; 77290; 77295; 77300; 77332; 77334; 99205

== ENCOUNTER → 2023-06-13 | Outpatient (RCR) | payer MEDICARE, MEDICAID | END | disposition home or self-care (01) | LOC: ONC 05-15 08:41 | PROVIDERS: ATTEND Radiology Radiation Oncology | DX: Z51.0 Encounter for antineoplastic radiation therapy (principal); C50.411 Malignant neoplasm of upper-outer quadrant of right female breast; Z17.0 Estrogen receptor positive status [ER+]; J44.9 Chronic obstructive pulmonary disease, unspecified; I10 Essential (primary) hypertension; E78.00 Pure hypercholesterolemia, unspecified; Z87.891 Personal history of nicotine dependence; Z79.01 Long term (current) use of anticoagulants; Z79.02 Long term (current) use of antithrombotics/antiplatelets; Z79.899 Other long term (current) drug therapy | CPT/HCPCS: 77290; 77300; 77334; 77336; 77417 ==